=== PATIENT | female | born 1990 | race Caucasian/White ===

== ENCOUNTER 2023-07-30 12:27 | Outpatient (OUT) | payer OTHER, SELFPAY ==
--- NOTE | 2023-07-30 12:28 | US_ITS ---
[address] [address] Patient Name: PHILLIP HERNANDEZ MRN: [id number] date: 1990 Sex: F Assigned Patient Location: Current Patient Location: US Accession/Order Number: [id number] Exam Date: 07/30/2023 12:30 Report Date: 07/30/2023 22:30 At the request of: LE DELVALLE Procedure: US OB transvaginal EXAMINATION: US OB transvaginal HISTORY: Positive test COMPARISON: No relevant comparison available. FINDINGS: GESTATIONAL SAC: Present. YOLK SAC: Present. POLE: Present. CARDIAC: Absent. UTERUS: Normal size and appearance. OVARIES: Right: Corpus lutein cyst. Left: Normal. CERVIX: 4.1 cm in length and closed. CUL-DE-SAC: Normal. OTHER: None. AGE BY LMP: 10 weeks 3 days EDIE BY LMP: 02/22/2024 AGE BY US CRL: 6 weeks 6 days EDIE BY US CRL: 03/18/2024 US/US OB transvaginal IMPRESSION: 1. Early intrauterine versus demise. Follow-up recommended. Electronically authenticated by: BRENDA KEATING Date: 07/30/2023 22:30
== END 2023-07-30 12:28 | disposition home or self-care (01) ==
LOC: US 12:27
PROVIDERS: Visit Provider Obstetrics & Gynecology
DX: N92.6 Irregular menstruation, unspecified (principal)
CPT/HCPCS: 76817

== ENCOUNTER 2023-08-06 09:30 | Outpatient (OUT) | payer OTHER, SELFPAY ==
--- NOTE | 2023-08-06 09:31 | US_ITS ---
[address] [address] Patient Name: PHILLIP HERNANDEZ MRN: [id number] date: 1990 Sex: F Assigned Patient Location: US Current Patient Location: US Accession/Order Number: [id number] Exam Date: 08/06/2023 09:32 Report Date: 08/06/2023 16:44 At the request of: LE DELVALLE Procedure: US OB transvaginal EXAMINATION: US OB transvaginal HISTORY: VIABILITY COMPARISON: 07/30/2023 FINDINGS: No intrauterine or ectopic observed is observed The uterus is normal, anteverted, anteflexed. The endometrium measures 1.3 cm, mildly heterogeneous. No significant vascularity to suggest retained products of conception The right ovary is normal measuring 3.5 x 1.9 x 1.8 cm The left ovary is not visualized Cervix: Closed, 3.4 cm US/US OB transvaginal IMPRESSION: No intrauterine or ectopic observed Electronically authenticated by: NAVA YEUNG Date: 08/06/2023 16:44
== END 2023-08-06 09:31 | disposition home or self-care (01) ==
LOC: US 09:30
PROVIDERS: Visit Provider Obstetrics & Gynecology
DX: O36.80X0 Pregnancy with inconclusive fetal viability, not applicable or unspecified (principal)
CPT/HCPCS: 76817

== ENCOUNTER 2023-08-13 08:27 | Outpatient (RCR) | payer OTHER, SELFPAY ==
[2023-08-13 09:23] LABS: HCG Quantitative 136 mIU/mL
[2023-08-19 09:06] LABS: HCG Quantitative 24 mIU/mL
[2023-08-27 08:47] LABS: HCG Quantitative 4 mIU/mL
== END 2023-08-31 08:31 | disposition home or self-care (01) ==
LOC: LAB 08:27
PROVIDERS: Visit Provider Obstetrics & Gynecology
DX: Z51.89 Encounter for other specified aftercare (principal); O03.9 Complete or unspecified spontaneous abortion without complication
CPT/HCPCS: 36415; 84702

== ENCOUNTER 2023-09-07 20:18 | Outpatient (REF) | payer OTHER, SELFPAY ==
[2023-09-11 12:11] LABS: Age Gdln ACOG Testing Note (.); HPV Aptima Negative (Negative); IGP, Aptima HPV, rfx 16/18,45 Note (.)
== END 2023-09-07 20:19 | disposition home or self-care (01) ==
LOC: LAB 20:18
PROVIDERS: Visit Provider Obstetrics & Gynecology
DX: Z12.4 Encounter for screening for malignant neoplasm of cervix (principal)
CPT/HCPCS: 87624; G0145

== ENCOUNTER 2024-09-13 19:18 | Outpatient (REF) | payer OTHER, SELFPAY ==
[2024-09-20 11:09] LABS: Age Gdln ACOG Testing Note (.); HPV Aptima Negative (Negative); IGP, Aptima HPV, rfx 16/18,45 Note (.)
== END 2024-09-13 19:19 | disposition home or self-care (01) ==
LOC: LAB 19:18
PROVIDERS: Visit Provider Obstetrics & Gynecology
DX: Z01.419 Encounter for gynecological examination (general) (routine) without abnormal findings (principal)
CPT/HCPCS: 88175

== ENCOUNTER 2024-12-10 08:15 | Outpatient (RCR) | payer OTHER, SELFPAY ==
--- OUTSIDE RECORDS SUMMARY | 2024-12-10 08:20 | XMS_ITS | CCD ---
Author Organization [facility] CliniSyal Care Team Providers Care 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 Name Role Phone Subha Dillon Unavailable Elsi Mayer Unavailable MD Liz Conteh Primary Care Provider DO Delano Francis Attending Provider SITA, DR LUJAN Consulting Unavailable SITA, DR LUJAN Admitting Unavailable REQUEST, DR RAIN LISTED Primary Care Unavaila jt BUCKNER, DR LUJAN Attending Unavailable MELVIN, DR SEARS Attending Unavailable MELVIN, DR SEARS Consulting Unavailable MELVIN, DR SEARS Admitting Unavailable REQUEST, DR RAIN LISTED Primary Care Unavaila Kiya Gonsalves Unavailable MD Derick Timmons Attending Provider SHANNON Schaffer Attending Provider Robles Charles Unavailable MD Liz Conteh Primary Care Provider DO Delano Francis Attending Provider [phone] QUANG Haji Attending Provider DO Robles Charles Primary Care Provider Robles Charles MD Primary Care Provider QUANG Haji Attending Provider DO Robles Charles Primary Care Provider AUREA, DEISY Attending Unavailable AUREA, DEISY Attending Unavailable AUREA, DEISY Attending Unavailable AUREA, DEISY Attending Unavailable AUREA, DEISY Attending Unavailable AUREA, DEISY Attending Unavailable LE BUCKNER Attending Unavailable Deisy Pratt Unavailable DO Robles Charles Primary Care Provider [phone] Kuns - DO Reji MEZAan P [facility]ending Provider [facility] Un[facility] Robles Charles Primary [facility] [place] Unavailable Deisy Haji Admitting Unavailable Deisy Haji Attending Unavailable Robles Charles Primary Care Unavailable Robles Charles DO Primary Care Provider [facility] CRESPO Attending Provider Allergies Allergy Classification Reported Allergen(s) Allergy Type Date of Onset Reaction(s) Facility (5 sources) Penicillin V Drug Allergy rash [facility] [employer] Other (1 source) Amoxicillin Drug Allergy [address] [facility] Repository (1 source) Penicillins Drug allergy (disorder) [facility] Repository (5 sources) Penicillin Drug Allergy 7 Cups of Tea [facility] [employer] Other (1 source) Substance with penicillin structure and antibacterial mechanism of action (substance) Drug allergy 3 PENICILLINS [facility] [employer] Other (5 sources) Amoxicillin Drug Allergy 3 [facility] Healthcare (5 sources) Penicillin G Drug Allergy 3 Unknown [facility] Healthcare (1 source) Penicillins Drug allergy (disorder) 4 [facility] Repository Medications Current Medications Medication Drug Class(es) Dates Sig (Normalized) Sig (Original) doxycycline hyclate 100 mg oral capsule (6 sources) Tetracycline-clas s Drug Start: 01-06-2024 End: 01-13-2024 doxycycline (Vibramycin) 100 MG capsule Indications: 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 Take 1 capsule (100 mg) by mouth in the morning and 1 capsule (100 mg) before bedtime. Do all this for 7 days. Take with at least 8 ounces (large glass) of water, do not lie down for 30 minutes after. 14 capsule 0 01/06/2024 01/13/2024 Active Start: 12-24-2022 take 1 tablet by brandon th twice daily Doxycycline Hyclate 100 MG 1 tablet Orally Twice daily for 7 days Nov, Not-Taking fluticasone (9 sources) Corticosteroid Start: 01-22-2023 take 1-2 spray(s) nasal route once daily at bedtime FLONASE 50 mcg 1-2 sprays each NOSTRIL nasal QHS for 30 days Dec, Active take 1 spray(s) nasal route once daily fluticasone (Flonase) 50 MCG/ACT nasal spray Administer 1 spray into each nostril Daily Shake gently. Before first use, prime pump. After use, clean tip and replace cap. Active fluticasone (Vinnie nase Allergy Relief) 50 MCG/ACT nasal spray Flonase 0 Active moxifloxacin 400 mg oral tablet (1 source) Quinolone Antimicrobial Start: 01-06-2024 End: 01-13-2024 take 1 tablet by mouth in the morning moxifloxacin (Avelox) 400 MG tablet Indications: 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 Take 1 tablet (400 mg) by mouth in the morning for 7 days. start medication AFTER completing course of Doxycycline & Azithromycin.. 7 tablet 0 01/06/2024 01/13/2024 Active omeprazole 40 mg delayed release oral capsule (13 sources) Proton Pump Inhibitor Start: 08-16-2024 take 1 capsule by mouth once daily at breakfast Omeprazole 40 mg capsule,delayed release(DR/EC) Active 0 .ROUTE .COMPLEX August 16, 2024 4:42pm TAKE 1 CAPSULE BY MOUTH ONCE DAILY on an empty stomach 30 MINUTES prior TO breakfast Start: 02-22-2024 End: 08-16-2024 Omeprazole 40 mg capsule,del ayed release(DR/EC) Discontinued 40 MG PO Daily February 21, 2024 11:00pm August 16, 2024 4:42pm Take on an empty stomach, 30 minutes prior to bkfst End: 01-06-2024 Omeprazole Magnesium (PriLOS EC) 2.5 MG pack PriLOSEC 0 01/06/2024 Discontinued Pre- (10 sources) Pre-Mack Not-Ta flakita Pre-Mack Active MV-Min-Fe Fum-FA-DH A ( 1 PO) (3 sources) MV-Min- Fe Fum-FA-DHA ( 1 PO) Take 1 tablet by mouth Daily Active Vit-Fe Fumarate-FA ( Vitamin) 27-0.8 MG tablet (1 source) Vit-Fe Fumarate-FA ( Vitamin) 27-0.8 MG tablet Vitamin 0 Active Completed/Discontinued Medications Medication Drug Class(es) Dates Sig (Normalized) Sig (Original) azithromycin 250 mg oral tablet (13 sources) Macrolide Antimicrobial Start: 05-03-2024 End: 10-18-2024 Azithromycin 250 mg tablet Discontinued 250 MG PO daily 6 May 02, 2024 11:00pm October 18, 2024 11:19am take 2 today and then 1 for the next 4 days Start: 01-06-2024 take 1 tablet by brandon th once daily azithromycin (Zithromax) 500 MG tablet Indications: 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 Day 1: Take 2 tablets PO onetime dose; Day 2,3,4: Take 1 tablet daily 5 tablet 0 01/06/2024 Active Start: 09-26-2022 take 1 tablet by brandon th every twenty-four hours Zithromax 500 MG 1 tablet Orally Once a day for 5 days Aug, Not-Taking levoFLOXacin 500 mg oral tablet (5 sources) Quinolone Antimicrobial take 1 tablet by mouth every twenty-four hours levoFLOXacin 500 MG 1 tablet Orally Once a day for 10 day(s) Not-Taking methylPREDNISolone 4 mg oral tablet (4 sources) Corticosteroid Start : 05-03 End: 10-18 take 1 tablet by mouth once Methylprednisolone (Medrol (Santo)) 4 mg tablets,dose pack Discontinued 0 PO per package directions 21 May 02, 2024 11:00pm October 18, 2024 11:19am PO PER PKG DIR phentermine hydrochloride 37.5 mg oral tablet (11 sources) Sympathomimetic Amine Anorectic Start : 10-14 End: 09-13 take 1 tablet by mouth before mealtime phentermine (Adipex-P) 37.5 MG tablet Indications: Encounter for weight management Take 1 tablet (37.5 mg) by mouth in the morning. Take before meals. 30 tablet 02/03/2024 09/13/2024 Discontinued take 0.5 tablet by m outh once daily before breakfast Adipex-P 37.5 MG 1/2 tablet before breakfast Orally Once a day Active predniSONE 20 mg oral tablet (10 sources) Start: 01-22-2023 predniSONE 20 MG 2 tabs x 4 days then 1 tab x 4 days Orally daily w/ food for 8 days Dec, Not-Taking Start: 12-24-2022 take 1 tablet by brandon th twice daily predniSONE 20 MG 1 tablet Orally Twice daily for 4 days Nov, Not-Taking Problems Active Problems Problem Classification Problem Date Documented Date Episodic/Chronic Acute and chronic tonsillitis (4 sources) Acute tonsillitis, unspecified; Translations: [Tonsillitis] Episodic Administrative/socia l admission (1 source) Patient encounter status; Translations: [Persons encountering health services in other specified circumstances] 01-01-2024 Episodic Anxiety disorders (6 sources) Generalized anxiety disorder; Translations: [Generalized anxiety disorder] Chronic Bacterial infection; unspecified site (1 source) Mycoplasma infection; Translations: [Mycoplasma infection, unspecified site] 01-06-2024 Episodic Disorders of lipid metabolism (8 sources) Hyperlipidemia, group A; Translations: [Pure hypercholesterolemia, unspecified] Chronic Esophageal disorders (2 sources) Gastroesophageal reflux disease without esophagitis; Translations: [Gastro-esophageal reflux disease without esophagitis] Chronic Immunizations and screening for infectious disease (5 sources) Encounter for immunization; Translations: [Encounter for screening for other viral diseases] Onset: 08-23-2021 Resolved: 01-01-2022 Episodic Malaise and fatigue (9 sources) Other fatigue; Translations: [Fatigue] Onset: 06-06-2022 Episodic Other endocrine disorders (1 source) Disorder of endocrine system; Translations: [Endocrine disorder, unspecified] 01-06-2024 Episodic Other nutritional; endocrine; and metabolic disorders (5 sources) Overweight; Translations: [Overweight] Episodic Other nutritional; endocrine; and metabolic disorders (1 source) Overweight Episodic Other screening for suspected conditions (not mental disorders or infectious disease) (4 sources) Encounter for screening for malignant neoplasm of cervix; Translations: [ENC SCREENING MALIG NEOPLASM CERV] Onset: 08-25-2022 Episodic Other upper respiratory disease (5 sources) Vasomotor rhinitis; Translations: [Vasomotor rhinitis] Chronic Other upper respiratory disease (1 source) Vasomotor rhinitis Chronic Other upper respiratory disease (5 sources) Hypertrophy of nasal turbinates; Translations: [Hypertrophy of nasal turbinates] Episodic Other upper respiratory disease (1 source) Hypertrophy of nasal turbinates Episodic Other upper respiratory infections (3 sources) Acute pharyngitis, unspecified; Translations: [Acute maxillary sinusitis, unspecified] Episodic Unclassified (1 source) Endocrine disorder, unspecified; Translations: [Endocrine disorder, unspecified] Onset: 01-07-2024 Past or Other Problems Problem Classification Problem Date Documented Da te Episodic/Chronic Unclassified (1 source) Contact with and (suspected) exposure to covid-19 Z20.822 Viral infection (1 source) COVID-19 Onset: 12-27-2021 Resolved: 12-27-2021 Results Test Name Value Interpretation Reference Range Facility Automated basophil %Ordered By: Delano Francis on 09-22-2024 Basophils/100 WBC (Bld) 0.6 % Normal . [facility] Comment on above: Performed By: #### D HEAS, LC T4, [id number], SEROTON, TEST F + T, T3R, THYGLOB AB, ESTRADIOL, TPO, SHBG, ESTRONE, INSULIN, PROG #### [facility] , #### T4F, TRISTEN, TSH3, A1C WTH eA, FILIBERTO, GLU, T3F #### [facility] [address] [place] [address] Automated basophil countOrde red By: Delano Francis on 09-22-2024 Basophils (Bld) [#/Vol] 0.0 10*3/uL Normal 0.0-0.2 [facility] Comment on above: Result Comment: PERF ORMED BY: [place] [address] PATHOLOGIST RABBIT BREEDER JOSE GOEL M.D. Performed By: #### D HEAS, LC T4, [id number], SEROTON, TEST F + T, T3R, THYGLOB AB, ESTRADIOL, TPO, SHBG, ESTRONE, INSULIN, PROG #### [facility] , #### T4F, TRISTEN, TSH3, A1C WTH eA, FILIBERTO, GLU, T3F #### [facility] [address] [place] [address] Automated blood monocyte cou ntOrdered By: Delano Francis on 09-22-2024 Monocytes (Bld) [#/Vol] 0.4 10*3/uL Normal 0.0-0.8 [facility] Comment on above: Performed By: #### D HEAS, LC T4, [id number], SEROTON, TEST F + T, T3R, THYGLOB AB, ESTRADIOL, TPO, SHBG, ESTRONE, INSULIN, PROG #### [facility] , #### T4F, TRISTEN, TSH3, A1C WTH eA, FILIBERTO, GLU, T3F #### [facility] [address] Automated eosinophil %Ordere d By: Delano Francis on 09-22-2024 Eosinophils/100 WBC (Bld) 1.7 % Normal . [facility] Comment on above: Performed By: #### D HEAS, LC T4, [id number], SEROTON, TEST F + T, T3R, THYGLOB AB, ESTRADIOL, TPO, SHBG, ESTRONE, INSULIN, PROG #### [facility] , #### T4F, TRISTEN, TSH3, A1C WTH eA, FILIBERTO, GLU, T3F #### [address] Automated eosinophil countOr dered By: Delano Francis on 09-22-2024 Eosinophils (Bld) [#/Vol] 0.1 10*3/uL Normal 0.0-0.45 [facility] Comment on above: Performed By: #### D HEAS, LC T4, [id number], SEROTON, TEST F + T, T3R, THYGLOB AB, ESTRADIOL, TPO, SHBG, ESTRONE, INSULIN, PROG #### [facility] , #### T4F, TRISTEN, TSH3, A1C WTH eA, FILIBERTO, GLU, T3F #### [address] Automated monocyte %Ordered By: Delano Francis on 09-22-2024 Monocytes/100 WBC (Bld) 8.7 % Normal . [facility] Comment on above: Performed By: #### D HEAS, LC T4, [id number], SEROTON, TEST F + T, T3R, THYGLOB AB, ESTRADIOL, TPO, SHBG, ESTRONE, INSULIN, PROG #### [facility] , #### T4F, TRISTEN, TSH3, A1C WTH eA, FILIBERTO, GLU, T3F #### [facility] [address] [place] [address] Automated neutrophil %Ordere d By: Delano Francis on 09-22-2024 Neutrophils/100 WBC (Bld) 63.7 % Normal . [facility] Comment on above: Performed By: #### D HEAS, LC T4, [id number], SEROTON, TEST F + T, T3R, THYGLOB AB, ESTRADIOL, TPO, SHBG, ESTRONE, INSULIN, PROG #### [facility] , #### T4F, TRISTEN, TSH3, A1C WTH eA, FILIBERTO, GLU, T3F #### [address] Basophils Auto (Bld) [#/Vol] Ordered By: Delano Francis on 09-22-2024 Basophils (Bld) [#/Vol] Automated basophil count 0.0-0.2 [facility] Basophils/100 WBC Auto (Bld) Ordered By: Delano Francis on 09-22-2024 Basophils/100 WBC (Bld) Automated basophil % . [facility] Calcium [Mass/volume] in Ser um or PlasmaOrdered By: Delano Francis on 09-22-2024 Calcium [Mass/Vol] 9.4 mg/dL Normal 8.6-10.3 [facility] Comment on above: Performed By: #### D HEAS, LC T4, [id number], SEROTON, TEST F + T, T3R, THYGLOB AB, ESTRADIOL, TPO, SHBG, ESTRONE, INSULIN, PROG #### [facility] , #### T4F, TRISTEN, TSH3, A1C WTH eA, FILIBERTO, GLU, T3F #### [address] Calcium [Mass/Vol] Calcium [Mass/volume ] in Serum or Plasma 8.6-10.3 [facility] Carbon dioxide, total [Moles /volume] in Serum or PlasmaOrdered By: Delano Francis on 09-22-2024 CO2 [Moles/Vol] 29.2 mmol/L Normal 21.0-31.0 [facility] Comment on above: Performed By: #### D DANIELLEAS, LC T4, [id number], SEROTON, TEST F + T, T3R, THYGLOB AB, ESTRADIOL, TPO, SHBG, ESTRONE, INSULIN, PROG #### [facility] , #### T4F, TRISTEN, TSH3, A1C WTH eA, FILIBERTO, GLU, T3F #### [facility] [address] [place] [id number] [place] CO2 [Moles/Vol] Carbon dioxide, tota l [Moles/volume] in Serum or Plasma 21.0-31.0 [facility] Chloride [Moles/volume] in S stevo or PlasmaOrdered By: Delano Francis on 09-22-2024 Chloride [Moles/Vol] 105 mmol/L Normal [address] [place] [address] Comment on above: Performed By: #### D VENITA, LC T4, [id number], SEROTON, TEST F + T, T3R, THYGLOB AB, ESTRADIOL, TPO, SHBG, ESTRONE, INSULIN, PROG #### [facility] , #### T4F, TRISTEN, TSH3, A1C WTH eA, FILIBERTO, GLU, T3F #### [facility] [address] [place] [address] [place] Chloride [Moles/Vol] Chloride [Moles/vol ume] in Serum or Plasma 107 [facility] Cholesterol [Mass/volume] in Serum or PlasmaOrdered By: Delano Francis on 09-22-2024 Cholesterol [Mass/Vol] 217 mg/dL High 140-200 [facility] Comment on above: Chol less than 200 m g/dl low riskChol 201-239 mg/dl borderline riskChol 240 mg/dl and greater high risk Result Comment: Chol less than 200 mg/dl low risk Chol 201-239 mg/dl borderline risk Chol 240 mg/dl and greater high risk Performed By: #### D HEAS, LC T4, [id number], SEROTON, TEST F + T, T3R, THYGLOB AB, ESTRADIOL, TPO, SHBG, ESTRONE, INSULIN, PROG #### [facility] , #### T4F, TRISTEN, TSH3, A1C WTH eA, FILIBERTO, GLU, T3F #### [facility] [address] Cholesterol [Mass/Vol] Cholesterol [Mass/volume] in Serum or Plasma High 140-200 [facility] Comment on above: Chol less than 200 m g/dl low riskChol 201-239 mg/dl borderline riskChol 240 mg/dl and greater high risk Cholesterol in HDL [Mass/vol ume] in Serum or PlasmaOrdered By: Delano Francis on 09-22-2024 Cholesterol in HDL [Mass/Vol] Serum or plasma high density lipoprotein (HDL) cholesterol measurement 23- [facility] Comment on above: HDL CHOL ATP-III CLA SSIFICATION Cardiovascular RiskHDL > or equal to 60 mg/dL LOWHDL < 40 mg/dL HIGH Cholesterol in LDL Calc [Mas s/Vol]Ordered By: Delano Francis on 09-22-2024 Cholesterol in LDL [Mass/Vol] 148 mg/dL High 0-100 [facility] Comment on above: LDL ATP III CLASSIFI CATIONLDL less than 100 mg/dL OptimalLDL 100-129 mg/dL Near or above optimalLDL 130-159 mg/dL Borderline highLDL 160-189 mg/dL HighLDL greater than 189 mg/dL Very high Cholesterol in LDL [Mass/Vol] Cholesterol in LDL [Mass/volume] in Serum or Plasma by calculation High 0-100 [facility] Comment on above: LDL ATP III CLASSIFI CATIONLDL less than 100 mg/dL OptimalLDL 100-129 mg/dL Near or above optimalLDL 130-159 mg/dL Borderline highLDL 160-189 mg/dL HighLDL greater than 189 mg/dL Very high Cholesterol in VLDL Calc [Ma ss/Vol]Ordered By: Delano Francis on 09-22-2024 Cholesterol in VLDL [Mass/Vol] 10 mg/dL [facility] Cholesterol in VLDL [Mass/Vol] Cholesterol in VLDL [Mass/volume] in Serum or Plasma by calculation [facility] Creatinine [Mass/volume] in Serum or PlasmaOrdered By: Delano Francis on 09-22-2024 Creatinine [Mass/Vol] 0.73 mg/dL Normal 0.60-1.20 [facility] Comment on above: Performed By: #### D HEAS, LC T4, [id number], SEROTON, TEST F + T, T3R, THYGLOB AB, ESTRADIOL, TPO, SHBG, ESTRONE, INSULIN, PROG #### [facility] , #### T4F, TRISTEN, TSH3, A1C WTH eA, FILIBERTO, GLU, T3F #### [address] Creatinine [Mass/Vol] Creatinine [Mass/v olume] in Serum or Plasma 0.60-1.20 [facility] Employee Basic Metabolic Olvera bellevue 09-22-2024 GFR/1.73 sq M.predicted MDRD (S/P/Bld) [Vol rate/Area] mL/min/{1.73_m2} Normal [facility] Comment on above: Performed By: #### D DANIELLEAS, LC T4, [id number], SEROTON, TEST F + T, T3R, THYGLOB AB, ESTRADIOL, TPO, SHBG, ESTRONE, INSULIN, PROG #### [facility] , #### T4F, TRISTEN, TSH3, A1C WTH eA, FILIBERTO, GLU, T3F #### [address] Employee Complete Blood Coun ton 09-22-2024 Mean Corpuscular HGB Conc 34.2 g/dL Normal 32.0-35.0 [facility] Comment on above: Performed By: #### D HEAS, LC T4, [id number], SEROTON, TEST F + T, T3R, THYGLOB AB, ESTRADIOL, TPO, SHBG, ESTRONE, INSULIN, PROG #### [facility] , #### T4F, TRISTEN, TSH3, A1C WTH eA, FILIBERTO, GLU, T3F #### [address] NRBC% 0.0 /100{WBC} Normal 0-0.5 [facility] Comment on above: Performed By: #### D VENITA, JOSSE T4, [id number], SEROTON, TEST F + T, T3R, THYGLOB AB, ESTRADIOL, TPO, SHBG, ESTRONE, INSULIN, PROG #### [facility] , #### T4F, TRISTEN, TSH3, A1C WTH eA, FILIBERTO, GLU, T3F #### [address] Employee Lipid Profileon LDL Cholesterol,Calculated 148 mg/dL High 0-100 [facility] Comment on above: Result Comment: LDL ATP III CLASSIFICATION LDL less than 100 mg/dL Optimal LDL 100-129 mg/dL Near or above optimal LDL 130-159 mg/dL Borderline high LDL 160-189 mg/dL High LDL greater than 189 mg/dL Very high Performed By: #### D VENITA, JOSSE T4, [id number], SEROTON, TEST F + T, T3R, THYGLOB AB, ESTRADIOL, TPO, SHBG, ESTRONE, INSULIN, PROG #### [facility] , #### T4F, TRISTEN, TSH3, A1C WTH eA, FILIBERTO, GLU, T3F #### [address] Triglyceride w/Reflex 52 mg/dL Normal 0-149 [facility] Comment on above: Result Comment: TRIG ATP III CLASSIFICATION TRIG less than 150 mg/dL Normal TRIG 150-199 mg/dL Borderline high TRIG 200-500 mg/dL High TRIG greater than 500 mg/dL Very high Standard traceable to the Center for Disease Conrtrol and Prevention (CDC) test method. Performed By: #### D JOSSE NATHAN T4, [id number], SEROTON, TEST F + T, T3R, THYGLOB AB, ESTRADIOL, TPO, SHBG, ESTRONE, INSULIN, PROG #### [facility] , #### T4F, TRISTEN, TSH3, A1C WTH eA, FILIBERTO, GLU, T3F #### [address] VLDL CHOLESTEROL 10 mg/dL Normal [facility] Comment on above: Performed By: #### D DANIELLEAS, LC T4, [id number], SEROTON, TEST F + T, T3R, THYGLOB AB, ESTRADIOL, TPO, SHBG, ESTRONE, INSULIN, PROG #### [facility] , #### T4F, TRISTEN, TSH3, A1C WTH eA, FILIBERTO, GLU, T3F #### [address] Employee Thyroid Stim Hormon lonnie 09-22-2024 Employee Thyroid Stim Hormone 2.30 u[iU]/mL Normal 0.45-5.33 [facility] Comment on above: Result Comment: PERF ORMED BY: [place] [address] PATHOLOGIST RABBIT BREEDER JOSE GOEL M.D. Performed By: #### D HEAS, LC T4, [id number], SEROTON, TEST F + T, T3R, THYGLOB AB, ESTRADIOL, TPO, SHBG, ESTRONE, INSULIN, PROG #### [facility] , #### T4F, TRISTEN, TSH3, A1C WTH eA, FILIBERTO, GLU, T3F #### [address] Eosinophils Auto (Bld) [#/Vo l]Ordered By: Delano Francis on 09-22-2024 Eosinophils (Bld) [#/Vol] Automated eosinophil count 0.0-0.45 [facility] Eosinophils/100 WBC Auto (Bl d)Ordered By: Delano Francis on 09-22-2024 Eosinophils/100 WBC (Bld) Automated eosinophil % . [facility] Erythrocyte distribution wid th Auto (RBC) [Ratio]Ordered By: Delano Francis on 09-22-2024 Erythrocyte distribution width (RBC) [Ratio] Erythrocyte distribution width [Ratio] by Automated count 11.9-15.3 [facility] Erythrocyte distribution wid th [Ratio] by Automated countOrdered By: Delano Francis on 09-22-2024 Erythrocyte distribution width (RBC) [Ratio] 13.2 % Normal 11.9-15.3 [facility] Comment on above: Performed By: #### D DANIELLEAS, LC T4, [id number], SEROTON, TEST F + T, T3R, THYGLOB AB, ESTRADIOL, TPO, SHBG, ESTRONE, INSULIN, PROG #### [facility] , #### T4F, TRISTEN, TSH3, A1C WTH eA, FILIBERTO, GLU, T3F #### [facility] [address] [place] [address] [place] Erythrocytes [#/volume] in B lood by Automated countOrdered By: Delano Francis on 09-22-2024 RBC (Bld) [#/Vol] 3.91 10*6/uL Normal 3.60-5.00 [facility] Comment on above: Performed By: #### D DANIELLEAS, LC T4, [id number], SEROTON, TEST F + T, T3R, THYGLOB AB, ESTRADIOL, TPO, SHBG, ESTRONE, INSULIN, PROG #### [facility] , #### T4F, TRISTEN, TSH3, A1C WTH eA, FILIBERTO, GLU, T3F #### [facility] [address] [place] [address] [place] Glucose [Mass/volume] in Ser um or PlasmaOrdered By: Delano Francis on 09-22-2024 Glucose [Mass/Vol] 83 mg/dL Normal 70-100 [facility] Comment on above: Performed By: #### D HEAS, LC T4, [id number], SEROTON, TEST F + T, T3R, THYGLOB AB, ESTRADIOL, TPO, SHBG, ESTRONE, INSULIN, PROG #### [facility] , #### T4F, TRISTEN, TSH3, A1C WTH eA, FILIBERTO, GLU, T3F #### [facility] [address] [place] [id number] [place] Glucose [Mass/Vol] Glucose [Mass/volume ] in Serum or Plasma 70-100 [facility] Hematocrit Auto (Bld) [Volum e fraction]Ordered By: Delano Francis on 09-22-2024 Hematocrit (Bld) [Volume fraction] Hematocrit [Volume Fraction] of Blood by Automated count 34.0-46.4 [facility] Hematocrit [Volume Fraction] of Blood by Automated countOrdered By: Delano Francis on 09-22-2024 Hematocrit (Bld) [Volume fraction] 35.9 % Normal 34.0-46.4 [facility] Comment on above: Performed By: #### D VEINTA, LC T4, [id number], SEROTON, TEST F + T, T3R, THYGLOB AB, ESTRADIOL, TPO, SHBG, ESTRONE, INSULIN, PROG #### [facility] , #### T4F, TRISTEN, TSH3, A1C WTH eA, FILIBERTO, GLU, T3F #### [facility] [address] [place] [address] [place] Hemoglobin [Mass/volume] in BloodOrdered By: Delano Francis on 09-22-2024 Hemoglobin (Bld) [Mass/Vol] 12.3 g/dL Normal 11.8-15.4 [facility] [facility] Comment on above: Performed By: #### Adria NATHAN, LC T4, [id number], SEROTON, TEST F + T, T3R, THYGLOB AB, ESTRADIOL, TPO, SHBG, ESTRONE, INSULIN, PROG #### [facility] , #### T4F, TRISTEN, TSH3, A1C WTH eA, FILIBERTO, GLU, T3F #### [facility] [address] [place] [address] [place] Hemoglobin (Bld) [Mass/Vol] Hemoglobin [Mass/volume] in Blood 11.8-15.4 [facility] Leukocytes [#/volume] correc calvin for nucleated erythrocytes in Blood by Automated counOrdered By: Delano Francis on 09-22-2024 WBC corrected for nucl RBC Auto (Bld) [#/Vol] 5.1 10*3/uL 3.8-11.6 [facility] WBC corrected for nucl RBC Auto (Bld) [#/Vol] Leukocytes [#/volume] corrected for nucleated erythrocytes in Blood by Automated coun 3.8-11.6 [facility] Leukocytes [#/volume] in Blo od by Automated countOrdered By: Delano Francis on 09-22-2024 WBC (Bld) [#/Vol] 5.1 10*3/uL Normal 3.8-11.6 [facility] Comment on above: Performed By: #### D HEAS, LC T4, [id number], SEROTON, TEST F + T, T3R, THYGLOB AB, ESTRADIOL, TPO, SHBG, ESTRONE, INSULIN, PROG #### [facility] , #### T4F, TRISTEN, TSH3, A1C WTH eA, FILIBERTO, GLU, T3F #### [facility] [address] [place] [address] [place] Lymphocytes Auto (Bld) [#/Vo l]Ordered By: Delano Francis on 09-22-2024 Lymphocytes (Bld) [#/Vol] Lymphocytes [#/volume] in Blood by Automated count 1.00-4.8 [facility] Lymphocytes [#/volume] in Bl ood by Automated countOrdered By: Delano Francis on 09-22-2024 Lymphocytes (Bld) [#/Vol] 1.3 10*3/uL Normal 1.00-4.8 [facility] Comment on above: Performed By: #### D HEAS, LC T4, [id number], SEROTON, TEST F + T, T3R, THYGLOB AB, ESTRADIOL, TPO, SHBG, ESTRONE, INSULIN, PROG #### [facility] , #### T4F, TRISTEN, TSH3, A1C WTH eA, FILIBERTO, GLU, T3F #### [facility] [address] [place] [address] [place] Lymphocytes/100 WBC Auto (Bl d)Ordered By: Delano Francis on 09-22-2024 Lymphocytes/100 WBC (Bld) Lymphocytes/100 leukocytes in Blood by Automated count . [facility] Lymphocytes/100 leukocytes i n Blood by Automated countOrdered By: Delano Francis on 09-22-2024 Lymphocytes/100 WBC (Bld) 25.3 % Normal . [facility] Comment on above: Performed By: #### D HEAS, LC T4, [id number], SEROTON, TEST F + T, T3R, THYGLOB AB, ESTRADIOL, TPO, SHBG, ESTRONE, INSULIN, PROG #### [facility] , #### T4F, TRISTEN, TSH3, A1C WTH eA, FILIBERTO, GLU, T3F #### [address] MCH Auto (RBC) [Entitic mass ]Ordered By: Delano Francis on 09-22-2024 MCH (RBC) [Entitic mass] MCH [Entitic mass] by Automated count 24.7-34.3 [facility] MCH [Entitic mass] by Automa calvin countOrdered By: Delano Francis on 09-22-2024 MCH (RBC) [Entitic mass] 31.4 pg Normal 24.7-34.3 [facility] Comment on above: Performed By: #### D HEAS, LC T4, [id number], SEROTON, TEST F + T, T3R, THYGLOB AB, ESTRADIOL, TPO, SHBG, ESTRONE, INSULIN, PROG #### [facility] , #### T4F, TRISTEN, TSH3, A1C WTH eA, FILIBERTO, GLU, T3F #### [address] MCHC Auto (RBC) [Mass/Vol]Or dered By: Delano Francis on 09-22-2024 MCHC (RBC) [Mass/Vol] 34.2 g/dL 32.0-35.0 [facility] MCHC (RBC) [Mass/Vol] MCHC [Mass/volume] by Automated count 32.0-35.0 [facility] MCV Auto (RBC) [Entitic vol] Ordered By: Delano Francis on 09-22-2024 MCV (RBC) [Entitic vol] MCV [Entitic vol ume] by Automated count 80-100 [facility] MCV [Entitic volume] by Auto mated countOrdered By: Delano Francis on 09-22-2024 MCV (RBC) [Entitic vol] 91.7 fL Normal 80-100 [facility] Comment on above: Performed By: #### D HEAS, LC T4, [id number], SEROTON, TEST F + T, T3R, THYGLOB AB, ESTRADIOL, TPO, SHBG, ESTRONE, INSULIN, PROG #### [facility] , #### T4F, TRISTEN, TSH3, A1C WTH eA, FILIBERTO, GLU, T3F #### [facility] [address] [place] [address] [place] Monocytes Auto (Bld) [#/Vol] Ordered By: Delano Francis on 09-22-2024 Monocytes (Bld) [#/Vol] Automated blood monocyte count 0.0-0.8 [facility] Monocytes/100 WBC Auto (Bld) Ordered By: Delano Francis on 09-22-2024 Monocytes/100 WBC (Bld) Automated monocyte % . [facility] Neutrophils Auto (Bld) [#/Vo l]Ordered By: Delano Francis on 09-22-2024 Neutrophils (Bld) [#/Vol] Neutrophils [#/volume] in Blood by Automated count 1.8-7.7 [facility] Neutrophils [#/volume] in Bl ood by Automated countOrdered By: Delano Francis on 09-22-2024 Neutrophils (Bld) [#/Vol] 3.2 10*3/uL Normal 1.8-7.7 [facility] Comment on above: Performed By: #### D HEAS, LC T4, [id number], SEROTON, TEST F + T, T3R, THYGLOB AB, ESTRADIOL, TPO, SHBG, ESTRONE, INSULIN, PROG #### [facility] , #### T4F, TRISTEN, TSH3, A1C WTH eA, FILIBERTO, GLU, T3F #### [facility] [address] [place] [address] [place] Neutrophils/100 WBC Auto (Bl d)Ordered By: Delano Francis on 09-22-2024 Neutrophils/100 WBC (Bld) Automated neutrophil % . [facility] No Panel InformationOrdered By: Delano Francis on 09-22-2024 Estimated GFR (CKD-EPI) > 60.0 mL/Min [facility] Creatinine Clearance (Chem N/A [facility] Nucleated erythrocytes [Pres ence] in Blood by Automated countOrdered By: Delano Francis on 09-22-2024 Nucleated RBC Auto Ql (Bld) 0.0 /100{WBC} 0-0.5 [facility] Nucleated RBC Auto Ql (Bld) Nucleated erythrocytes [Presence] in Blood by Automated count 0-0.5 [facility] Platelet mean volume Auto (B ld) [Entitic vol]Ordered By: Delano Francis on 09-22-2024 Platelet mean volume (Bld) [Entitic vol] Platelet mean volume [Entitic volume] in Blood by Automated count 6.3-10.7 [facility] Platelet mean volume [Entiti c volume] in Blood by Automated countOrdered By: Delano Francis on 09-22-2024 Platelet mean volume (Bld) [Entitic vol] 7.3 fL Normal 6.3-10.7 [facility] Comment on above: Performed By: #### D HEAS, LC T4, [id number], SEROTON, TEST F + T, T3R, THYGLOB AB, ESTRADIOL, TPO, SHBG, ESTRONE, INSULIN, PROG #### [facility] , #### T4F, TRISTEN, TSH3, A1C WTH eA, FILIBERTO, GLU, T3F #### [address] Platelets Auto (Bld) [#/Vol] Ordered By: Delano Francis on 09-22-2024 Platelets (Bld) [#/Vol] Platelets [#/vol ume] in Blood by Automated count 150-450 [facility] Platelets [#/volume] in Bloo d by Automated countOrdered By: Delano Francis on 09-22-2024 Platelets (Bld) [#/Vol] 328 10*3/uL Normal 150-450 [facility] Comment on above: Performed By: #### D HEAS, LC T4, [id number], SEROTON, TEST F + T, T3R, THYGLOB AB, ESTRADIOL, TPO, SHBG, ESTRONE, INSULIN, PROG #### [facility] , #### T4F, TRISTEN, TSH3, A1C WTH eA, FILIBERTO, GLU, T3F #### [facility] [address] [place] [address] [place] Potassium [Moles/volume] in Serum or PlasmaOrdered By: Delano Francis on 09-22-2024 Potassium [Moles/Vol] 4.5 mmol/L Normal 3.5-5.1 [facility] Comment on above: Performed By: #### D HEAS, LC T4, [id number], SEROTON, TEST F + T, T3R, THYGLOB AB, ESTRADIOL, TPO, SHBG, ESTRONE, INSULIN, PROG #### [facility] , #### T4F, TRISTEN, TSH3, A1C WTH eA, FILIBERTO, GLU, T3F #### [facility] [address] [place] [address] [place] Potassium [Moles/Vol] Potassium [Moles/v olume] in Serum or Plasma 3.5-5.1 [facility] RBC Auto (Bld) [#/Vol]Ordere d By: Delano Francis on 09-22-2024 RBC (Bld) [#/Vol] Erythrocytes [#/volu me] in Blood by Automated count 3.60-5.00 [facility] Serum or plasma anion gap de terminationOrdered By: Delano Francis on 09-22-2024 Anion gap [Moles/Vol] 8.3 mmol/L Normal 6.0-15.0 [facility] Comment on above: Performed By: #### D HEAS, LC T4, [id number], SEROTON, TEST F + T, T3R, THYGLOB AB, ESTRADIOL, TPO, SHBG, ESTRONE, INSULIN, PROG #### [facility] , #### T4F, TRISTEN, TSH3, A1C WTH eA, FILIBERTO, GLU, T3F #### [facility] [address] [place] [id number] [place] Anion gap [Moles/Vol] Serum or plasma an ion gap determination 6.0-15.0 [facility] Serum or plasma high density lipoprotein (HDL) cholesterol measurementOrdered By: Delano Francis on 09-22-2024 Cholesterol in HDL [Mass/Vol] 59 mg/dL Normal 23-92 [facility] Comment on above: HDL CHOL ATP-III CLA SSIFICATION Cardiovascular RiskHDL > or equal to 60 mg/dL LOWHDL < 40 mg/dL HIGH Result Comment: HDL CHOL ATP-III CLASSIFICATION Cardiovascular Risk HDL > or equal to 60 mg/dL LOW HDL < 40 mg/dL HIGH Performed By: #### D VENITA, LC T4, [id number], SEROTON, TEST F + T, T3R, THYGLOB AB, ESTRADIOL, TPO, SHBG, ESTRONE, INSULIN, PROG #### [facility] , #### T4F, TRISTEN, TSH3, A1C WTH eA, FILIBERTO, GLU, T3F #### [facility] [address] Serum or plasma total choles terol/high density lipoprotein (HDL) cholesterol mass ratOrdered By: Delano Francis on 09-22-2024 Cholesterol.total/Alivia sterol in HDL [Mass ratio] 3.7 {ratio} Normal <5.0 [facility] Comment on above: Performed By: #### D VENITA, LC T4, [id number], SEROTON, TEST F + T, T3R, THYGLOB AB, ESTRADIOL, TPO, SHBG, ESTRONE, INSULIN, PROG #### [facility] , #### T4F, TRISTEN, TSH3, A1C WTH eA, FILIBERTO, GLU, T3F #### [facility] [address] Cholesterol.total/Alivia sterol in HDL [Mass ratio] Serum or plasma total cholesterol/high density lipoprotein (HDL) cholesterol mass rat <5.0 [facility] Sodium [Moles/volume] in Ser um or PlasmaOrdered By: Delano Francis on 09-22-2024 Sodium [Moles/Vol] 138 mmol/L Normal 136-145 [facility] Comment on above: Performed By: #### D HEAS, LC T4, [id number], SEROTON, TEST F + T, T3R, THYGLOB AB, ESTRADIOL, TPO, SHBG, ESTRONE, INSULIN, PROG #### [facility] , #### T4F, TRISTEN, TSH3, A1C WTH eA, FILIBERTO, GLU, T3F #### [facility] [address] Sodium [Moles/Vol] Sodium [Moles/volume ] in Serum or Plasma 136-145 [facility] Thyrotropin [Units/volume] i n Serum or PlasmaOrdered By: Delano Francis on 09-22-2024 TSH Qn 2.30 m[IU]/L 0.45-5.33 [facility] TSH Qn Thyrotropin [Units/volume] in Serum or Plasma 0.45-5.33 [facility] Triglyceride [Mass/volume] i n Serum or PlasmaOrdered By: Delano Francis on 09-22-2024 Triglyceride [Mass/Vol] 52 mg/dL 0-149 [facility] Comment on above: TRIG ATP III CLASSIF ICATIONTRIG less than 150 mg/dL NormalTRIG 150-199 mg/dL Borderline highTRIG 200-500 mg/dL High TRIG greater than 500 mg/dL Very highStandard traceable to the Center for Disease Conrtrol and Prevention (CDC) test method. Triglyceride [Mass/Vol] Triglyceride [Mass/volume] in Serum or Plasma 0-149 [facility] Comment on above: TRIG ATP III CLASSIF ICATIONTRIG less than 150 mg/dL NormalTRIG 150-199 mg/dL Borderline highTRIG 200-500 mg/dL High TRIG greater than 500 mg/dL Very highStandard traceable to the Center for Disease Conrtrol and Prevention (CDC) test method. Urea nitrogen [Mass/volume] in Serum or PlasmaOrdered By: Delano Francis on 09-22-2024 Urea nitrogen [Mass/Vol] 9 mg/dL Normal 7-25 [facility] Comment on above: Performed By: #### D HESUE, LC T4, [id number], SEROTON, TEST F + T, T3R, THYGLOB AB, ESTRADIOL, TPO, SHBG, ESTRONE, INSULIN, PROG #### [facility] , #### T4F, TRISTEN, TSH3, A1C WTH eA, FILIBERTO, GLU, T3F #### [facility] [address] Urea nitrogen [Mass/Vol] Urea nitrogen [Mass/volume] in Serum or Plasma 06-23 [facility] WBC Auto (Bld) [#/Vol]Ordere d By: Delano Francis on 09-22-2024 WBC (Bld) [#/Vol] Leukocytes [#/volume ] in Blood by Automated count 3.8-11.6 [facility] IGP,APTIMA HPV,AGE GDLNon AGE GDLN ACOG TESTING Note . [facility] Comment on above: TESTS RESULT FLAG UN ITS REF RANGE LAB Clinician Provided Cytology Information Source.............Cervix;Endocervix No. of containers..01 ThinPrep Vial Age Algo ACOG Lara... 30-65 01 FLAG LEGEND: L-Low Normal,H-High Normal,LL-Alert Low,HH-Alert High <-Panic Low,>-Panic High,A-Abnormal,AA-Critical Abnormal Performed at: 01 =G [address] [id number] Ilana Heath MD, HPV APTIMA Negative Negative [facility] Comment on above: This nucleic acid am plification test detects fourteen high- risk HPV types (16,18,31,33,35,39,45,51,52,56,58,59,66,68) without differentiation. Performed at: = - [address], [place] [id number] [employer]: Ilana Heath MD, Phone: [phone] Performed at: - [address] [id number] [employer]: Ilana Heath MD, Phone: [phone] IGP, APTIMA HPV, RFX 16/18,45 Note . [facility] Comment on above: TESTS RESULT FLAG UN ITS REF RANGE LAB DIAGNOSIS: 02 NEGATIVE FOR INTRAEPITHELIAL LESION OR MALIGNANCY. Specimen adequacy: 02 Satisfactory for evaluation. No endocervical component is identified. Performed by: 02 Chema Camargo, Pilot (ASCP) . 02 Note: Note 02 The Pap smear is a screening test designed to aid in the detection of premalignant and malignant conditions of the uterine cervix. It is not a diagnostic procedure and should not be used as the sole means of detecting cervical cancer. Both false-positive and false-negative reports do occur. Test Methodology: Note 02 This liquid based ThinPrep(R) pap test was screened with the use of an image guided system. HPV Genotype Reflex Note 02 Criteria not met, HPV Genotype not performed. FLAG LEGEND: L-Low Normal,H-High Normal,LL-Alert Low,HH-Alert High <-Panic Low,>-Panic High,A-Abnormal,AA-Critical Abnormal Performed at: 02 [facility] [address] [facility] [place] [address] Ilana Heath MD, BRUSH-SPATULA CERVIX ENDOCERVIX [facility] 1,25 Dihydroxy Vit D Calcitr olon 01-07-2024 1,25 Dihydroxy Vit D Calcitrol 56.6 pg/mL Normal 24.8-81.5 [facility] Comment on above: Result Comment: Perf ormed at: - [facility] [place] [address] [place] [id number] [employer]: Quinton Wolf MD, Phone: [phone] Performed By: #### D VENITA, LC T4, [id number], SEROTON, TEST F + T, T3R, THYGLOB AB, ESTRADIOL, TPO, SHBG, ESTRONE, INSULIN, PROG #### [facility] , #### T4F, TRISTEN, TSH3, A1C WTH eA, FILIBERTO, GLU, T3F #### [facility] [address] A1C with Estimated Average G luon 01-07-2024 Glucose [Mass/Vol] 105 mg/dL Normal [facility] Comment on above: Result Comment: PERF ORMED BY: [place] [address] PATHOLOGIST RABBIT BREEDER JOSE GOEL M.D. Performed By: #### D VENITA, LC T4, [id number], SEROTON, TEST F + T, T3R, THYGLOB AB, ESTRADIOL, TPO, SHBG, ESTRONE, INSULIN, PROG #### [facility] , #### T4F, TRISTEN, TSH3, A1C WTH eA, FILIBERTO, GLU, T3F #### [facility] [address] [place] [id number] [place] Antithyroglobulin Abon 01-07 Antithyroglobulin Ab <1.0 Normal 0.0-0.9 [facility] Comment on above: Result Comment: Thyr oglobulin Antibody measured by Mitul Mariah Methodology Performed at: [facility] [address] [id number] [employer] Announcements: Baudilio Leyva PhD, Phone: [phone] Performed By: #### D VENITA, LC T4, [id number], SEROTON, TEST F + T, T3R, THYGLOB AB, ESTRADIOL, TPO, SHBG, ESTRONE, INSULIN, PROG #### [facility] , #### T4F, TRISTEN, TSH3, A1C WTH eA, FILIBERTO, GLU, T3F #### [address] Cortisolon 01-07-2024 Cortisol 6.8 ug/dL Normal [facility] Comment on above: Result Comment: Refe rence range: AM 6 - 24 ug/dl PM <10 ug/dl [facility] academic associate and method: MITUL UNICEL DXI, POLYCLONAL ANTIBODY CORTISOL ASSAY. PERFORMED BY: [place] [address] PATHOLOGIST RABBIT BREEDER JOSE GOEL M.D. Performed By: #### D VENITA, LC T4, [id number], SEROTON, TEST F + T, T3R, THYGLOB AB, ESTRADIOL, TPO, SHBG, ESTRONE, INSULIN, PROG #### [facility] , #### T4F, TRISTEN, TSH3, A1C WTH eA, FILIBERTO, GLU, T3F #### [address] Dehydroepiandrosterone Sulfa teOrdered By: Deisy Haji on 01-07-2024 Dehydroepiandrosterone Sulfate 174.0 ug/dL Normal 84.8-378.0 [facility] Comment on above: Performed By: #### D HESUE, LC T4, [id number], SEROTON, TEST F + T, T3R, THYGLOB AB, ESTRADIOL, TPO, SHBG, ESTRONE, INSULIN, PROG #### [facility] , #### T4F, TRISTEN, TSH3, A1C WTH eA, FILIBERTO, GLU, T3F #### [facility] [address] [place] [address] [facility] Estradiolon 01-07-2024 Estradiol 300.0 pg/mL Normal . [facility] Comment on above: Result Comment: Adul t Female Range Follicular phase 12.5 - 166.0 Ovulation phase 85.8 - 498.0 Luteal phase 43.8 - 211.0 Postmenopausal <6.0 - 54.7 1st trimester 215.0 - >4300.0 Elías ECLIA methodology Performed By: #### D VENITA, LC T4, [id number], SEROTON, TEST F + T, T3R, THYGLOB AB, ESTRADIOL, TPO, SHBG, ESTRONE, INSULIN, PROG #### [facility] , #### T4F, TRISTEN, TSH3, A1C WTH eA, FILIBERTO, GLU, T3F #### [facility] [address] [place] [address] [facility] Estrone, Serumon 01-07-2024 Estrone, Serum 46 pg/mL Normal 27-231 [facility] Comment on above: Result Comment: Rang e Adult (Premenopausal) 27 - 231 Menstrual Cycle (1-10 days) 19 - 149 Menstrual Cycle (11-20 days) 32 - 176 Menstrual Cycle (21-30 days) 37 - 200 Performed at: [facility] [address] [id number] [employer] Announcements: Quinton Wolf MD, Phone: [phone] Performed By: #### D VENITA, LC T4, [id number], SEROTON, TEST F + T, T3R, THYGLOB AB, ESTRADIOL, TPO, SHBG, ESTRONE, INSULIN, PROG #### [facility] , #### T4F, TRISTEN, TSH3, A1C WTH eA, FILIBERTO, GLU, T3F #### [facility] [address] [place] [address] [facility] Ferritin [Mass/volume] in Se rum or PlasmaOrdered By: Deisy Haji on 01-07-2024 Ferritin [Mass/Vol] 44.8 ng/mL Normal 11.0-306.8 [facility] Comment on above: Performed By: #### D HEAS, LC T4, [id number], SEROTON, TEST F + T, T3R, THYGLOB AB, ESTRADIOL, TPO, SHBG, ESTRONE, INSULIN, PROG #### [facility] , #### T4F, TRISTEN, TSH3, A1C WTH eA, FILIBERTO, GLU, T3F #### [facility] [address] Free testosterone measuremen t by LC-MS/MSOrdered By: Deisy Haji on 01-07-2024 Testosterone Free [Mass/Vol] 0.3 pg/mL 0.0-4.2 [facility] Comment on above: Performed at: [address] [id number] Director: Baudilio Leyva PhD, Phone: [phone] at: [facility] [employer] [id number] Director: Quinton Wolf MD, Phone: [phone] Glucose [Mass/volume] in Ser um or PlasmaOrdered By: Deisy Haji on 01-07-2024 Glucose [Mass/Vol] 84 mg/dL Normal 70-100 [facility] Comment on above: ADA recommended refe rence rangeRandom Glucose Reference Range is dependent on time and content of last meal. Glucose of more than 200 mg/dL in a nonstressed, ambulatory subject supports the diagnosis of Diabetes Mellitus. Result Comment: [place] om Glucose Reference Range is dependent on time and content of last meal. Glucose of more than 200 mg/dL in a nonstressed, ambulatory subject supports the diagnosis of Diabetes Mellitus. ADA recommended reference range Performed By: #### D HEAS, LC T4, [id number], SEROTON, TEST F + T, T3R, THYGLOB AB, ESTRADIOL, TPO, SHBG, ESTRONE, INSULIN, PROG #### [facility] , #### T4F, TRISTEN, TSH3, A1C WTH eA, FILIBERTO, GLU, T3F #### [facility] [address] Glucose mean value [Mass/vol ume] in Blood Estimated from glycated hemoglobinOrdered By: Deisy Haji on 01-07-2024 Average glucose Estimated from glycated hemoglobin (Bld) [Mass/Vol] 105 mg/dL [facility] Hemoglobin A1c percentageOrd ered By: Deisy Haji on 01-07-2024 HbA1c (Bld) [Mass fraction] 5.3 % Normal 4.3-5.6 [facility] Comment on above: Increased risk for d iabetes: 5.7 - 6.4diabetes: >6.4glycemic control for adults with diabetes: <7.0 Result Comment: Incr eased risk for diabetes: 5.7 - 6.4 diabetes: >6.4 glycemic control for adults with diabetes: <7.0 Performed By: #### D JOSSE NATHAN T4, [id number], SEROTON, TEST F + T, T3R, THYGLOB AB, ESTRADIOL, TPO, SHBG, ESTRONE, INSULIN, PROG #### [facility] , #### T4F, TRISTEN, TSH3, A1C WTH eA, FILIBERTO, GLU, T3F #### [facility] [address] Insulinon 01-07-2024 Insulin 4.5 u[iU]/mL Normal 2.6-24.9 [facility] Comment on above: Result Comment: Perf ormed at: - [facility] [address] [id number] [employer] Cards [employer] Announcements: Baudilio Leyva PhD, Phone: [phone] Performed By: #### D JOSSE NATHAN T4, [id number], SEROTON, TEST F + T, T3R, THYGLOB AB, ESTRADIOL, TPO, SHBG, ESTRONE, INSULIN, PROG #### [facility] , #### T4F, TRISTEN, TSH3, A1C WTH eA, FILIBERTO, GLU, T3F #### [facility] [address] Lab Alie Thyroxine (T4)on T4 [Mass/Vol] 8.2 ug/dL Normal 4.5-12.0 [facility] Comment on above: Performed By: #### D HEAS, LC T4, [id number], SEROTON, TEST F + T, T3R, THYGLOB AB, ESTRADIOL, TPO, SHBG, ESTRONE, INSULIN, PROG #### [facility] , #### T4F, TRISTEN, TSH3, A1C WTH eA, FILIBERTO, GLU, T3F #### [facility] [address] No Panel InformationOrdered By: Deisy Haji on 01-07-2024 Free Thyroxine (T4) Direct 8.2 ug/dL 4.5-12.0 [facility] Reverse Triiodothyronine (T3) 18.9 ng/dL 9.2-24.1 [facility] Comment on above: This test was develo ped and its performance characteristicsdetermined by [employer]. It has not been cleared orapproved by the Food and Drug Administration.Performed at: [facility] [employer] [id number] Director: Quinton Wolf MD, Phone: [phone] Sex Hormone Binding Globulin 95.4 nmol/L 24.6-122.0 [facility] Comment on above: Performed at: [address] [id number] Director: Baudilio Leyva PhD, Phone: [phone] Plasma serotonin measurement (mass/volume)Ordered By: Deisy Haji on 01-07-2024 Serotonin (P) [Mass/Vol] 71 ng/mL 31-207 [facility] Comment on above: This test was develo ped and its performance characteristicsdetermined by [employer]. It has not been cleared orapproved by the Food and Drug Administration.Performed at: [facility] [employer] [id number] Director: Quinton Wolf MD, Phone: [phone] Progesteroneon 01-07-2024 Progesterone 0.2 ng/mL Normal . [facility] Comment on above: Result Comment: Foll icular phase 0.1 - 0.9 Luteal phase 1.8 - 23.9 Ovulation phase 0.1 - 12.0 First trimester 11.0 - 44.3 Second trimester 25.4 - 83.3 Third trimester 58.7 - 214.0 Postmenopausal 0.0 - 0.1 Performed By: #### D VENITA, LC T4, [id number], SEROTON, TEST F + T, T3R, THYGLOB AB, ESTRADIOL, TPO, SHBG, ESTRONE, INSULIN, PROG #### [facility] , #### T4F, TRISTEN, TSH3, A1C WTH eA, FILIBERTO, GLU, T3F #### [facility] [address] Random cortisol measurementO rdered By: Deisy Haji on 01-07-2024 Cortisol [Mass/Vol] 6.8 ug/dL [facility] Comment on above: [facility] academic associate and method:Bplats DXI, POLYCLONAL ANTIBODY CORTISOL ASSAY.Reference range: AM 6 - 24 ug/dl PM <10 ug/dl Serotonin, Serumon 4 Serotonin, Serum 71 ng/mL Normal 31-207 [facility] Comment on above: Result Comment: This test was developed and its performance characteristics determined by [employer]. It has not been cleared or approved by the Food and Drug Administration. Performed at: [address] [id number] [employer] Cards [employer] Announcements: Quinton Wolf MD, Phone: [phone] PERFORMED BY: [place] [address] PATHOLOGIST RABBIT BREEDER JOSE GOEL M.D. Performed By: #### D VENITA, JOSSE T4, [id number], SEROTON, TEST F + T, T3R, THYGLOB AB, ESTRADIOL, TPO, SHBG, ESTRONE, INSULIN, PROG #### [facility] , #### T4F, TRISTEN, TSH3, A1C WTH eA, FILIBERTO, GLU, T3F #### [facility] [address] Serum estrone measurementOrd ered By: Deisy Haji on 01-07-2024 E1 [Mass/Vol] 46 pg/mL 27-231 [facility] Comment on above: Range Adult (Premeno pausal) 27 - 231 Menstrual Cycle (1-10 days) 19 - 149 Menstrual Cycle (11-20 days) 32 - 176 Menstrual Cycle (21-30 days) 37 - 200Performed at: BN - [facility] [address] [id number] Director: Quinton Wolf MD, Phone: [phone] Serum or plasma calcitriol m easurement (mass/volume)Ordered By: Deisy Haji on 01-07-2024 1,25-dihydroxyvitamin D3 [Mass/Vol] 56.6 pg/mL 24.8-81.5 [facility] Comment on above: Performed at: BN - [facility] [address] [id number] Director: Quinton Wolf MD, Phone: [phone] Serum or plasma estradiol (E 2) measurement (mass/volume)Ordered By: Deisy Haji on 01-07-2024 E2 [Mass/Vol] 300.0 pg/mL . [facility] Comment on above: Adult Female Range F ollicular phase 12.5 - 166.0 Ovulation phase 85.8 - 498.0 Luteal phase 43.8 - 211.0 Postmenopausal <6.0 - 54.7 1st trimester 215.0 - >4300.0Roche ECLIA methodology Serum or plasma insulin kevin urement (units/volume)Ordered By: Deisy Haji on 01-07-2024 Insulin Qn 4.5 u[iU]/mL 2.6-24.9 [facility] Comment on above: Performed at: - [facility] [address] [id number] Director: Baudilio Leyva PhD, Phone: [phone] Serum or plasma progesterone measurement (mass/volume)Ordered By: Deisy Haji on 01-07-2024 Progesterone [Mass/Vol] 0.2 ng/mL . [facility] Comment on above: Follicular phase 0.1 - 0.9 Luteal phase 1.8 - 23.9 Ovulation phase 0.1 - 12.0 First trimester 11.0 - 44.3 Second trimester 25.4 - 83.3 Third trimester 58.7 - 214.0 Postmenopausal 0.0 - 0.1 Serum or plasma thyroglobuli n antibody assay (units/volume)Ordered By: Deisy Haji on 01-07-2024 Thyroglobulin Ab Qn [IU]/mL 0.0-0.9 [facility] Comment on above: Thyroglobulin Antibo dy measured by BioinceptMethodologyPerformed at: [facility] [id number] Director: Baudilio Leyva PhD, Phone: [phone] Serum or plasma thyroperoxid ase antibody assay (units/volume)Ordered By: Deisy Haji on 01-07-2024 TPO Ab Qn [IU]/mL 0-34 [facility] Comment on above: Performed at: [facility] [address] [id number] Director: Baudilio Leyva PhD, Phone: [phone] Sex Hormone Binding Globulin on 01-07-2024 Sex Hormone Binding Globulin 95.4 Normal 24.6-122.0 [facility] Comment on above: Result Comment: Perf ormed at: [facility] [id number] [employer] Announcements: Baudilio Leyva PhD, Phone: [phone] Performed By: #### D VENITA, LC T4, [id number], SEROTON, TEST F + T, T3R, THYGLOB AB, ESTRADIOL, TPO, SHBG, ESTRONE, INSULIN, PROG #### [facility] , #### T4F, TRISTEN, TSH3, A1C WTH eA, FILIBERTO, GLU, T3F #### [address] Testosterone Free and TotalO rdered By: Deisy Haji on 01-07-2024 Testosterone [Mass/Vol] 16 ng/dL Normal 8-60 [facility] Comment on above: Performed By: #### D VENITA, LC T4, [id number], SEROTON, TEST F + T, T3R, THYGLOB AB, ESTRADIOL, TPO, SHBG, ESTRONE, INSULIN, PROG #### [facility] , #### T4F, TRISTEN, TSH3, A1C WTH eA, FILIBERTO, GLU, T3F #### [address] Testosterone Free and Totalo n 01-07-2024 Testosterone,Free 0.3 pg/mL Normal 0.0-4.2 [facility] Comment on above: Result Comment: Perf ormed at: [address] [id number] [employer] Announcements: Baudilio Leyva PhD, Phone: [phone] Performed at: [address] [id number] [employer] Announcements: Quinton Wolf MD, Phone: [phone] Performed By: #### Adria NATHAN, JOSSE T4, [id number], SEROTON, TEST F + T, T3R, THYGLOB AB, ESTRADIOL, TPO, SHBG, ESTRONE, INSULIN, PROG #### [facility] , #### T4F, TRISTEN, TSH3, A1C WTH eA, FILIBERTO, GLU, T3F #### [address] Thyroid Peroxidase Antibodie son 01-07-2024 Thyroid Peroxidase Antibodies <9 Normal 0-34 [facility] Comment on above: Result Comment: Perf ormed at: [address] [id number] [employer] Announcements: Baudilio Leyva PhD, Phone: [phone] Performed By: #### Adria NATHAN, LC T4, [id number], SEROTON, TEST F + T, T3R, THYGLOB AB, ESTRADIOL, TPO, SHBG, ESTRONE, INSULIN, PROG #### [facility] , #### T4F, TRISTEN, TSH3, A1C WTH eA, FILIBERTO, GLU, T3F #### [address] Thyrotropin [Units/volume] i n Serum or PlasmaOrdered By: Deisy Haji on 01-07-2024 TSH Qn 1.80 m[IU]/L Normal 0.45-5.33 [facility] Comment on above: Performed By: #### D HEAS, LC T4, [id number], SEROTON, TEST F + T, T3R, THYGLOB AB, ESTRADIOL, TPO, SHBG, ESTRONE, INSULIN, PROG #### [facility] , #### T4F, TRISTEN, TSH3, A1C WTH eA, FILIBERTO, GLU, T3F #### [facility] [address] [place] [address] [place] Thyroxine (T4) free [Mass/vo lume] in Serum or PlasmaOrdered By: Deisy Haji on 01-07-2024 Free T4 [Mass/Vol] 0.88 ng/dL Normal 0.61-1.12 [facility] Comment on above: Performed By: #### D HEAS, LC T4, [id number], SEROTON, TEST F + T, T3R, THYGLOB AB, ESTRADIOL, TPO, SHBG, ESTRONE, INSULIN, PROG #### [facility] , #### T4F, TRISTEN, TSH3, A1C WTH eA, FILIBERTO, GLU, T3F #### [place] [address] [place] Triiodothyronine (T3) Freeon 01-07-2024 Triiodothyronine (T3) Free 3.90 pg/mL Normal 2.50-3.90 [facility] Comment on above: Result Comment: PERF ORMED BY: [place] [address] PATHOLOGIST RABBIT BREEDER JOSE GOEL M.D. Performed By: #### D HEAS, LC T4, [id number], SEROTON, TEST F + T, T3R, THYGLOB AB, ESTRADIOL, TPO, SHBG, ESTRONE, INSULIN, PROG #### [facility] , #### T4F, TRISTEN, TSH3, A1C WTH eA, FILIBERTO, GLU, T3F #### [place] [id number] [place] Triiodothyronine (T3) Free [ Mass/volume] in Serum or PlasmaOrdered By: Deisy Haji on 01-07-2024 Free T3 [Mass/Vol] 3.90 pg/mL 2.50-3.90 [facility] Triiodothyronine (T3) Revers lonnie 01-07-2024 Triiodothyronine (T3) Reverse 18.9 ng/dL Normal 9.2-24.1 [facility] Comment on above: Result Comment: This test was developed and its performance characteristics determined by [facility]. It has not been cleared or approved by the Food and Drug Administration. Performed at: [facility] [address] [id number] [employer] Cards [employer] Announcements: Quinton Wolf MD, Phone: [phone] Performed By: #### D HEAS, LC T4, [id number], SEROTON, TEST F + T, T3R, THYGLOB AB, ESTRADIOL, TPO, SHBG, ESTRONE, INSULIN, PROG #### [facility] , #### T4F, TRISTEN, TSH3, A1C WTH eA, FILIBERTO, GLU, T3F #### [facility] [address] Alanine aminotransferase [En zymatic activity/volume] in Serum or PlasmaOrdered By: Delano Francis on 09-17-2023 ALT [Catalytic activity/Vol] 20 U/L 7-52 [facility] Albumin [Mass/volume] in Ser um or Plasma by Bromocresol green (BCG) dye binding methoOrdered By: Delano Francis on 09-17-2023 Albumin BCG dye [Mass/Vol] 4.3 g/dL 3.5-5.7 [facility] Alkaline phosphatase [Enzyma tic activity/volume] in Serum or PlasmaOrdered By: Delano Francis on 09-17-2023 ALP [Catalytic activity/Vol] 62 U/L 34-104 [facility] Aspartate aminotransferase [ Enzymatic activity/volume] in Serum or PlasmaOrdered By: Delano Francis on 09-17-2023 AST [Catalytic activity/Vol] 22 U/L 13-39 [facility] Basophils Auto (Bld) [#/Vol] Ordered By: Delano Francis on 09-17-2023 Basophils (Bld) [#/Vol] 0.0 10*3/uL 0.0-0.2 [facility] Basophils/100 WBC Auto (Bld) Ordered By: Delano Francis on 09-17-2023 Basophils/100 WBC (Bld) 0.4 % . [facility] Bilirubin.total [Mass/volume ] in Serum or PlasmaOrdered By: Delano Francis on 09-17-2023 Bilirubin [Mass/Vol] 0.7 mg/dL 0.3-1.0 [facility] Calcium [Mass/volume] in Ser um or PlasmaOrdered By: Delano Francis on 09-17-2023 Calcium [Mass/Vol] 9.4 mg/dL 8.6-10.3 [facility] Carbon dioxide, total [Moles /volume] in Serum or PlasmaOrdered By: Delano Francis on 09-17-2023 CO2 [Moles/Vol] 26.2 mmol/L 21.0-31.0 [facility] Chloride [Moles/volume] in S stevo or PlasmaOrdered By: Delano Francis on 09-17-2023 Chloride [Moles/Vol] 102 mmol/L 98-107 [facility] Cholesterol [Mass/volume] in Serum or PlasmaOrdered By: Delano Francis on 09-17-2023 Cholesterol [Mass/Vol] 214 mg/dL 140-200 [facility] Comment on above: Chol less than 200 m g/dl low riskChol 201-239 mg/dl borderline riskChol 240 mg/dl and greater high risk Cholesterol in LDL Calc [Mas s/Vol]Ordered By: Delano Francis on 09-17-2023 Cholesterol in LDL [Mass/Vol] 161 mg/dL 0-100 [facility] Comment on above: LDL ATP III CLASSIFI CATIONLDL less than 100 mg/dL OptimalLDL 100-129 mg/dL Near or above optimalLDL 130-159 mg/dL Borderline highLDL 160-189 mg/dL HighLDL greater than 189 mg/dL Very high Cholesterol in VLDL Calc [Ma ss/Vol]Ordered By: Delano Francis on 09-17-2023 Cholesterol in VLDL [Mass/Vol] 9 mg/dL [facility] Creatinine [Mass/volume] in Serum or PlasmaOrdered By: Delano Francis on 09-17-2023 Creatinine [Mass/Vol] 0.79 mg/dL 0.60-1.20 [facility] Eosinophils Auto (Bld) [#/Vo l]Ordered By: Delano Francis on 09-17-2023 Eosinophils (Bld) [#/Vol] 0.1 10*3/uL 0.0-0.45 [facility] Eosinophils/100 WBC Auto (Bl d)Ordered By: Delano Francis on 09-17-2023 Eosinophils/100 WBC (Bld) 0.9 % . [facility] Erythrocyte distribution wid th Auto (RBC) [Ratio]Ordered By: Delano Francis on 09-17-2023 Erythrocyte distribution width (RBC) [Ratio] 12.4 % 11.9-15.3 [facility] Globulin Calc (S) [Mass/Vol] Ordered By: Delano Francis on 09-17-2023 Globulin (S) [Mass/Vol] 2.5 g/dL [facility] Glucose [Mass/volume] in Ser um or PlasmaOrdered By: Delano Francis on 09-17-2023 Glucose [Mass/Vol] 75 mg/dL 70-100 [facility] Hematocrit Auto (Bld) [Volum e fraction]Ordered By: Delano Francis on 09-17-2023 Hematocrit (Bld) [Volume fraction] 34.2 % 34.0-46.4 [facility] Hemoglobin [Mass/volume] in BloodOrdered By: Delano Francis on 09-17-2023 Hemoglobin (Bld) [Mass/Vol] 11.8 g/dL 11.8-15.4 [facility] Leukocytes [#/volume] correc calvin for nucleated erythrocytes in Blood by Automated counOrdered By: Delano Francis on 09-17-2023 WBC corrected for nucl RBC Auto (Bld) [#/Vol] 5.9 10*3/uL 3.8-11.6 [facility] Lymphocytes Auto (Bld) [#/Vo l]Ordered By: Delano Francis on 09-17-2023 Lymphocytes (Bld) [#/Vol] 1.8 10*3/uL 1.00-4.8 [facility] Lymphocytes/100 WBC Auto (Bl d)Ordered By: Delano Francis on 09-17-2023 Lymphocytes/100 WBC (Bld) 30.5 % . [facility] MCH Auto (RBC) [Entitic mass ]Ordered By: Delano Francis on 09-17-2023 MCH (RBC) [Entitic mass] 31.8 pg 24.7-34.3 [facility] MCHC Auto (RBC) [Mass/Vol]Or dered By: Delano Francis on 09-17-2023 MCHC (RBC) [Mass/Vol] 34.4 g/dL 32.0-35.0 [facility] MCV Auto (RBC) [Entitic vol] Ordered By: Delano Francis on 09-17-2023 MCV (RBC) [Entitic vol] 92.5 fL 80-100 [facility] Monocytes Auto (Bld) [#/Vol] Ordered By: Delano Francis on 09-17-2023 Monocytes (Bld) [#/Vol] 0.5 10*3/uL 0.0-0.8 [facility] Monocytes/100 WBC Auto (Bld) Ordered By: Delano Francis on 09-17-2023 Monocytes/100 WBC (Bld) 9.2 % . [facility] Neutrophils Auto (Bld) [#/Vo l]Ordered By: Delano Francis on 09-17-2023 Neutrophils (Bld) [#/Vol] 3.5 10*3/uL 1.8-7.7 [facility] Neutrophils/100 WBC Auto (Bl d)Ordered By: Delano Francis on 09-17-2023 Neutrophils/100 WBC (Bld) 59.0 % . [facility] No Panel InformationOrdered By: Delano Francis on 09-17-2023 Estimated GFR (CKD-EPI) > 60.0 mL/Min [facility] Creatinine Clearance (Chem N/A [facility] Nucleated erythrocytes [Pres ence] in Blood by Automated countOrdered By: Delano Francis on 09-17-2023 Nucleated RBC Auto Ql (Bld) 0.2 /100{WBC} 0-0.5 [facility] Platelet mean volume Auto (B ld) [Entitic vol]Ordered By: Delano Francis on 09-17-2023 Platelet mean volume (Bld) [Entitic vol] 8.1 fL 6.3-10.7 [facility] Platelets Auto (Bld) [#/Vol] Ordered By: Delano Francis on 09-17-2023 Platelets (Bld) [#/Vol] 250 10*3/uL 150-450 [facility] Potassium [Moles/volume] in Serum or PlasmaOrdered By: Delano Francis on 09-17-2023 Potassium [Moles/Vol] 4.0 mmol/L 3.5-5.1 [facility] Protein [Mass/volume] in Ser um or PlasmaOrdered By: Delano Francis on 09-17-2023 Protein [Mass/Vol] 6.8 g/dL 6.4-8.9 [facility] RBC Auto (Bld) [#/Vol]Ordere d By: Delano Francis on 09-17-2023 RBC (Bld) [#/Vol] 3.70 10*6/uL 3.60-5.00 [facility] Serum or plasma albumin/glob ulin mass ratioOrdered By: Delano Francis on 09-17-2023 Albumin/Globulin [Mass ratio] 1.7 {ratio} [facility] Serum or plasma anion gap de terminationOrdered By: Delano Francis on 09-17-2023 Anion gap [Moles/Vol] 10.8 mmol/L 6.0-15.0 [facility] Serum or plasma high density lipoprotein (HDL) cholesterol measurementOrdered By: Delano Francis on 09-17-2023 Cholesterol in HDL [Mass/Vol] 43 mg/dL 23-92 [facility] Comment on above: HDL CHOL ATP-III CLA SSIFICATION Cardiovascular RiskHDL > or equal to 60 mg/dL LOWHDL < 40 mg/dL HIGH Serum or plasma total choles terol/high density lipoprotein (HDL) cholesterol mass ratOrdered By: Delano Francis on 09-17-2023 Cholesterol.total/Alivia sterol in HDL [Mass ratio] 5.0 {ratio} <5.0 [facility] Sodium [Moles/volume] in Ser um or PlasmaOrdered By: Delano Francis on 09-17-2023 Sodium [Moles/Vol] 135 mmol/L 136-145 [facility] Thyrotropin [Units/volume] i n Serum or PlasmaOrdered By: Delano Francis on 09-17-2023 TSH Qn 1.04 m[IU]/L 0.45-5.33 [facility] Triglyceride [Mass/volume] i n Serum or PlasmaOrdered By: Delano Francis on 09-17-2023 Triglyceride [Mass/Vol] 48 mg/dL 0-149 [facility] Comment on above: TRIG ATP III CLASSIF ICATIONTRIG less than 150 mg/dL NormalTRIG 150-199 mg/dL Borderline highTRIG 200-500 mg/dL High TRIG greater than 500 mg/dL Very highStandard traceable to the Center for Disease Conrtrol and Prevention (CDC) test method. Urea nitrogen [Mass/volume] in Serum or PlasmaOrdered By: Delano Francis on 09-17-2023 Urea nitrogen [Mass/Vol] 7 mg/dL 7-25 [facility] WBC Auto (Bld) [#/Vol]Ordere d By: Delano Francis on 09-17-2023 WBC (Bld) [#/Vol] 5.9 10*3/uL 3.8-11.6 [facility] Mononucleosis Test, Qualon 1 Heterophile Ab LA Ql (S) Negative Newsy Other Quick Strepon 09-26-2022 S. pyogenes Org specific cx Ql (Throat) Negative Rare [employer] 4U Other Quick Strep [employer] Other SARS-CoV-2 (COVID-19) RNA NA A+probe Ql (Resp)on 09-26-2022 SARS-CoV-2 (COVID-19) RNA ROB+probe Ql (Unsp spec) Negative [employer] Other PAP ACOG PANEL 2: 30 to 65on 09-01-2022 . . Normal [facility] Comment on above: Result Comment: Perf ormed at: WB Performed By: #### [id number] #### [facility] [address] [place] [address] Dr. Zonia Zhang Age Gdln ACOG Testing 30-65 Normal [facility] Comment on above: Performed By: #### [id number] #### [facility] [address] [place] [address] Dr. Zonia Zhang DIAGNOSIS: Comment Normal [facility] Comment on above: Result Comment: NEGA TIVE FOR INTRAEPITHELIAL LESION OR MALIGNANCY. Performed at: WB Performed By: #### [id number] #### [facility] [address] [place] [address] Dr. Zonia Zhang HPV Aptima Negative Normal Negative [facility] Comment on above: Result Comment: This nucleic acid amplification test detects fourteen high-risk HPV types (16,18,31,33,35,39,45,51,52,56,58,59,66,68) without differentiation. Performed at: =G Performed By: #### [id number] #### [facility] [address] [place] [address] Dr. Zonia Zhang Methodology: Comment Normal [facility] Comment on above: Result Comment: This liquid based ThinPrep(R) pap test was screened with the use of an image guided system. Performed at: WB Performed By: #### [id number] #### [facility] [address] [place] [address] Dr. Zonia Zhang Note: Comment Normal [facility] Comment on above: Result Comment: The Pap smear is a screening test designed to aid in the detection of premalignant and malignant conditions of the uterine cervix. It is not a diagnostic procedure and should not be used as the sole means of detecting cervical cancer. Both false-positive and false-negative reports do occur. . Performed at: WB Performed By: #### [id number] #### [facility] [address] [place] [address] Dr. Zonia Zhang Performed by: Comment Normal [facility] Comment on above: Result Comment: Negin Tomas, Pilot (ASCP) Performed at: WB Performed By: #### [id number] #### [facility] [address] [place], [place] [address] Dr. Zonia Zhang Specimen adequacy: Comment Normal [facility] Comment on above: Result Comment: Sati sfactory for evaluation. Endocervical and/or squamous metaplastic cells (endocervical component) are present. Performed at: WB Performed By: #### [id number] #### [facility] [address] [place], [place] [address] Dr. Zonia Zhang Basophils Auto (Bld) [#/Vol] Ordered By: Delano Francis on 08-07-2022 Basophils (Bld) [#/Vol] 0.0 10*3/uL 0.0-0.2 [facility] Basophils/100 WBC Auto (Bld) Ordered By: Delano Francis on 08-07-2022 Basophils/100 WBC (Bld) 0.5 % . [facility] Blood hemoglobin measurement (mass/volume)Ordered By: Delano Francis on 08-07-2022 Hemoglobin (Bld) [Mass/Vol] 12.7 g/dL 11.8-15.4 [facility] Blood leukocytes automated c ount (number/volume)Ordered By: Delano Francis on 08-07-2022 WBC (Bld) [#/Vol] 5.0 10*3/uL 4.5-11.0 [facility] Body fluid albumin measureme nt (mass/volume)Ordered By: Delano Francis on 08-07-2022 Albumin (Body fld) [Mass/Vol] 4.1 g/dL 3.2-5.5 [facility] Cholesterol [Mass/volume] in Serum or PlasmaOrdered By: Delano Francis on 08-07-2022 Cholesterol [Mass/Vol] 253 mg/dL 140-200 [facility] Comment on above: Chol less than 200 m g/dl low risk Chol 201-239 mg/dl borderline risk Chol 240 mg/dl and greater high risk Chol less than 200 m g/dl low riskChol 201-239 mg/dl borderline riskChol 240 mg/dl and greater high risk Cholesterol in LDL Calc [Mas s/Vol]Ordered By: Delano Francis on 08-07-2022 Cholesterol in LDL [Mass/Vol] 181 mg/dL 0-100 [facility] Comment on above: LDL ATP III CLASSIFI CATION LDL less than 100 mg/dL Optimal LDL 100-129 mg/dL Near or above optimal LDL 130-159 mg/dL Borderline high LDL 160-189 mg/dL High LDL greater than 189 mg/dL Very high LDL ATP III CLASSIFI CATIONLDL less than 100 mg/dL OptimalLDL 100-129 mg/dL Near or above optimalLDL 130-159 mg/dL Borderline highLDL 160-189 mg/dL HighLDL greater than 189 mg/dL Very high Cholesterol in VLDL Calc [Ma ss/Vol]Ordered By: Delano Francis on 08-07-2022 Cholesterol in VLDL [Mass/Vol] 12 mg/dL [facility] Creatinine and Glomerular fi ltration rate.predicted panel (S/P/Bld)Ordered By: Delano Francis on 08-07-2022 Creatinine [Mass/Vol] 0.76 mg/dL 0.44-1.03 [facility] Eosinophils Auto (Bld) [#/Vo l]Ordered By: Delano Francis on 08-07-2022 Eosinophils (Bld) [#/Vol] 0.1 10*3/uL 0.0-0.45 [facility] Eosinophils/100 WBC Auto (Bl d)Ordered By: Delano Francis on 08-07-2022 Eosinophils/100 WBC (Bld) 1.6 % . [facility] Erythrocyte distribution wid th Auto (RBC) [Ratio]Ordered By: Delano Francis on 08-07-2022 Erythrocyte distribution width (RBC) [Ratio] 12.6 % 11.9-15.3 [facility] Estimated glomerular filtrat ion rate (GFR) non- AmericanOrdered By: Delano Francis on 08-07-2022 GFR/1.73 sq M.predicted among non-blacks MDRD (S/P/Bld) [Vol rate/Area] > 60 mL/Min [facility] Globulin Calc (S) [Mass/Vol] Ordered By: Delano Francis on 08-07-2022 Globulin (S) [Mass/Vol] 2.3 g/dL [facility] Hematocrit Auto (Bld) [Volum e fraction]Ordered By: Delano Francis on 08-07-2022 Hematocrit (Bld) [Volume fraction] 37.5 % 34.0-46.4 [facility] Laboratory - Chemistry and C hemistry - challengeOrdered By: Delano Francis on 08-07-2022 Glucose [Mass/Vol] 88 mg/dL 70-100 [facility] - Hematology and Cell countsOrdered By: Delano Francis on 08-07-2022 Nucleated RBC/100 WBC (Bld) [Ratio] 0.1 % 0-0.5 [facility] Lymphocytes Auto (Bld) [#/Vo l]Ordered By: Delano Francis on 08-07-2022 Lymphocytes (Bld) [#/Vol] 1.4 10*3/uL 1.00-4.8 [facility] Lymphocytes/100 WBC Auto (Bl d)Ordered By: Delano Francis on 08-07-2022 Lymphocytes/100 WBC (Bld) 28.1 % . [facility] MCH Auto (RBC) [Entitic mass ]Ordered By: Delano Francis on 08-07-2022 MCH (RBC) [Entitic mass] 31.8 pg 24.7-34.3 [facility] MCHC Auto (RBC) [Mass/Vol]Or dered By: Delano Francis on 08-07-2022 MCHC (RBC) [Mass/Vol] 33.8 g/dL 32.0-35.0 [facility] MCV Auto (RBC) [Entitic vol] Ordered By: Delano Francis on 08-07-2022 MCV (RBC) [Entitic vol] 94.3 fL 80-100 [facility] Monocyte %Ordered By: Delano Francis on 08-07-2022 Monocyte % 60 mg/dL 35-149 [facility] Comment on above: TRIG ATP III CLASSIF ICATION TRIG less than 150 mg/dL Normal TRIG 150-199 mg/dL Borderline high TRIG 200-500 mg/dL High TRIG greater than 500 mg/dL Very high Standard traceable to the Center for Disease Conrtrol and Prevention (CDC) test method. TRIG ATP III CLASSIF ICATIONTRIG less than 150 mg/dL NormalTRIG 150-199 mg/dL Borderline highTRIG 200-500 mg/dL High TRIG greater than 500 mg/dL Very highStandard traceable to the Center for Disease Conrtrol and Prevention (CDC) test method. Monocytes Auto (Bld) [#/Vol] Ordered By: Delano Francis on 08-07-2022 Monocytes (Bld) [#/Vol] 0.5 10*3/uL 0.0-0.8 [facility] Monocytes/100 WBC Auto (Bld) Ordered By: Delano Francsi on 08-07-2022 Monocytes/100 WBC (Bld) 10.1 % . [facility] Neutrophils Auto (Bld) [#/Vo l]Ordered By: Delano Francis on 08-07-2022 Neutrophils (Bld) [#/Vol] 3.0 10*3/uL 1.8-7.7 [facility] Neutrophils/100 WBC Auto (Bl d)Ordered By: Delano Francis on 08-07-2022 Neutrophils/100 WBC (Bld) 59.7 % . [facility] No Panel InformationOrdered By: Delano Francis on 08-07-2022 Estimated GFR () > 60 mL/Min [facility] Comment on above: GFR estimated refere nce range: According to KDOQI guidelines, <60 ml/min/1.73m2 is sufficient to diagnose a patient with chronic kidney disease. Nicotine Metabolite Negative Cutoff=25 [facility] Comment on above: Performed at: - [address] [id number] Director: Quinton Wolf MD, Phone: [phone] Pharmacy Creatinine Clearance (Chem N/A [facility] Platelet mean volume Auto (B ld) [Entitic vol]Ordered By: Delano Francis on 08-07-2022 Platelet mean volume (Bld) [Entitic vol] 7.8 fL 6.3-10.7 [facility] Platelets Auto (Bld) [#/Vol] Ordered By: Delano Francis on 08-07-2022 Platelets (Bld) [#/Vol] 275 10*3/uL 150-450 [facility] Protein [Mass/volume] in Ser um or PlasmaOrdered By: Delano Francis on 08-07-2022 Protein [Mass/Vol] 6.4 g/dL 6.1-7.9 [facility] RBC Auto (Bld) [#/Vol]Ordere d By: Delano Francis on 08-07-2022 RBC (Bld) [#/Vol] 3.97 10*6/uL 3.60-5.00 [facility] Serum or plasma alanine troy otransferase measurement without P-5'-P (enzymatic activiOrdered By: Delano Francis on 08-07-2022 ALT No additional P-5'-P [Catalytic activity/Vol] 13 U/L 10-60 [facility] Serum or plasma albumin/glob ulin mass ratioOrdered By: Delano Francis on 08-07-2022 Albumin/Globulin [Mass ratio] 1.8 {ratio} [facility] Serum or plasma alkaline nova sphatase measurement (enzymatic activity/volume)Ordered By: Delano Francis on 08-07-2022 ALP [Catalytic activity/Vol] 52 U/L 32-92 [facility] Serum or plasma anion gap de terminationOrdered By: Delano Francis on 08-07-2022 Anion gap [Moles/Vol] 11.7 mmol/L 6.0-15.0 [facility] Serum or plasma aspartate am inotransferase measurement (enzymatic activity/volume)Ordered By: Delano Francis on 08-07-2022 AST [Catalytic activity/Vol] 15 U/L 10-42 [facility] Serum or plasma calcium kevin urement (mass/volume)Ordered By: Delano Francis on 08-07-2022 Calcium [Mass/Vol] 9.8 mg/dL 8.2-10.2 [facility] Serum or plasma chloride ra surement (moles/volume)Ordered By: Delano Francis on 08-07-2022 Chloride [Moles/Vol] 101 mmol/L 95-114 [facility] Serum or plasma high density lipoprotein (HDL) cholesterol measurementOrdered By: Delano Francis on 08-07-2022 Cholesterol in HDL [Mass/Vol] 60 mg/dL 35-85 [facility] Comment on above: HDL CHOL ATP-III CLA SSIFICATION Cardiovascular Risk HDL > or equal to 60 mg/dL LOW HDL < 40 mg/dL HIGH HDL CHOL ATP-III CLA SSIFICATION Cardiovascular RiskHDL > or equal to 60 mg/dL LOWHDL < 40 mg/dL HIGH Serum or plasma potassium me asurement (moles/volume)Ordered By: Delano Francis on 08-07-2022 Potassium [Moles/Vol] 4.4 mmol/L 3.5-5.1 [facility] Serum or plasma sodium measu rement (moles/volume)Ordered By: Delano Francis on 08-07-2022 Sodium [Moles/Vol] 136 mmol/L 136-146 [facility] Serum or plasma total biliru bin measurement (mass/volume)Ordered By: Delano Francis on 08-07-2022 Bilirubin [Mass/Vol] 1.0 mg/dL 0.3-1.2 [facility] Serum or plasma total carbon dioxide measurement (moles/volume)Ordered By: Delano Francis on 08-07-2022 CO2 [Moles/Vol] 27.7 mmol/L 22.0-30.0 [facility] Serum or plasma total choles terol/high density lipoprotein (HDL) cholesterol mass ratOrdered By: Delano Francis on 08-07-2022 Cholesterol.total/Alivia sterol in HDL [Mass ratio] 4.2 {ratio} <5.0 [facility] Serum or plasma urea nitroge n measurement (mass/volume)Ordered By: Delano Francis on 08-07-2022 Urea nitrogen [Mass/Vol] 9 mg/dL 9-23 [facility] TSH DL <= 0.005 mIU/L QnOrde red By: Delano Francis on 08-07-2022 TSH Qn 1.43 m[IU]/L 0.45-5.33 [facility] T3, TOTAL (TRIIODOTHYRONINE) on 06-07-2022 T3, TOTAL 88 ng/dL Normal 71-[address] [facility] Comment on above: Performed By: #### T 3TOTAL #### [facility] [address] [address] [address] Zonia Zhang FREE T4on 06-06-2022 Free T4 [Mass/Vol] 0.94 ng/dL Normal 0.76-1.46 [facility] Comment on above: Performed By: #### F T4 #### [facility] [address] [address] [address] Zonia Zhang TSHon 06-06-2022 TSH 1.364 uIU/mL Normal 0.358-3.74 0 [facility] Comment on above: Performed By: #### T SH #### [facility] [address] [address] [address] Zonia Zhang COVID Quick Testingon 2021 Result Positive [facility] Other Quick Fluon 12-27-2021 FLUAV Ab CF (S) [Titer] Negative N [facility] Other FLUBV Ab CF (S) [Titer] Negative N [facility] Other Vital Signs Date Time Vital Sign Value Performing Clinician Facility 10-18-2024 11:19-050 Body height 170.18 cm Robles Ball DO Work Phone: [facility] 10-18-2024 11:19-0500 Body mass index (BMI) [Ratio] 29.7 kg/m2 Robles Ball DO Work Phone: [facility] 10-18-2024 11:19-050 Body weight 86.23 kg Robles Ball DO Work Phone: [facility] 10-18-2024 11:19-0500 Diastolic blood pressure 77 mm[Hg] Robles Ball DO Work Phone: [facility] 10-18-2024 11:19-0500 Heart rate 88 /min Robles Ball DO Work Phone: [facility] 10-18-2024 11:19-0500 Respiratory rate 12 /min Robles Ball DO Work Phone: [facility] 10-18-2024 11:19-0500 Systolic blood pressure 111 mm[Hg] Robles Ball DO Work Phone: [facility] 09-13-2024 14:28-0400 Body mass index (BMI) [Ratio] 28.79 kg/m2 Le Sita DO Work Phone: [facility] 09-13-2024 14:28-0400 Body weight 83.37 kg El Sita DO Work Phone: [facility] 09-13-2024 14:28-0400 Diastolic blood pressure 70 mm[Hg] Le Sita DO Work Phone: [facility] 09-13-2024 14:28-0400 Systolic blood pressure 120 mm[Hg] Le Sita DO Work Phone: [facility] 05-03-2024 14:40-0400 Body height 170.18 cm [facility] 05-03-2024 14:40-0400 Body mass index (BMI) [Ratio] 28.3 kg/m2 [facility] 05-03-2024 14:40-0400 Body weight 82.1 kg [facility] 05-03-2024 14:40-0400 Diastolic blood pressure 82 mm[Hg] [facility] 05-03-2024 14:40-0400 Heart rate 78 /min [facility] 05-03-2024 14:40-0400 SaO2% (BldA) [Mass fraction] 98 % [facility] 05-03-2024 14:40-0400 Systolic blood pressure 122 mm[Hg] [facility] 01-06-2024 14:20-0500 Body height 170.2 cm Deisy MUNOZ Work Phone: [facility] 01-06-2024 14:20-0500 Body mass index (BMI) [Ratio] 28.05 kg/m2 Deisy MUNOZ Work Phone: [facility] 01-06-2024 14:20-0500 Body weight 81.25 kg Deisy MUNOZ Work Phone: [facility] 01-06-2024 14:20-0500 Diastolic blood pressure 70 mm[Hg] Deisy MUNOZ Work Phone: [facility] 01-06-2024 14:20-0500 Systolic blood pressure 120 mm[Hg] Deisy MUNOZ Work Phone: [facility] 10-02-2023 10:00-0400 Body height 170.18 cm Robles Ball Other [facility] Other 10-02-2023 10:00-0400 Body mass index (BMI) [Ratio] 29.38 kg/m2 Robles Ball Other [facility] Other 10-02-2023 10:00-0400 Body weight 85.1 kg Robles Ball Other [facility] Other 10-02-2023 10:00-0400 Diastolic blood pressure 83 mm[Hg] Robles Ball Other [facility] Other 10-02-2023 10:00-0400 Respiratory rate 12 /min Robles Ball Other [facility] Other 10-02-2023 10:00-0400 Systolic blood pressure 131 mm[Hg] Robles Ball Other [facility] Other 01-22-2023 10:30-0500 Body height 170.18 cm Robles Ball Other [facility] Other 01-22-2023 10:30-0500 Body mass index (BMI) [Ratio] 29.91 kg/m2 Robles Ball Other [facility] Other 01-22-2023 10:30-0500 Body weight 86.64 kg Robles Ball Other [facility] Other 01-22-2023 10:30-0500 Diastolic blood pressure 72 mm[Hg] Robles Ball Other [facility] Other 01-22-2023 10:30-0500 Respiratory rate 16 /min Robles Ball Other [facility] Other 01-22-2023 10:30-0500 Systolic blood pressure 122 mm[Hg] Robles Ball Other [facility] Other 09-26-2022 16:10-0400 Body height 170.18 cm Kiya Schaffer Other [facility] Other 09-26-2022 16:10-0400 Body mass index (BMI) [Ratio] 29.29 kg/m2 Kiya Schaffer Other [facility] Other 09-26-2022 16:10-0400 Body temperature 98.8 [degF] Kiya Schaffer Other [facility] Other 09-26-2022 16:10-0400 Body weight 84.82 kg Kiya Schaffer Other [facility] Other 09-26-2022 16:10-0400 Diastolic blood pressure 73 mm[Hg] Kiya Schaffer Other [facility] Other 09-26-2022 16:10-0400 Respiratory rate 18 /min Kiya Schaffer Other [facility] Other 09-26-2022 16:10-0400 SaO2% (BldA) [Mass fraction] 97 % Kiya Schaffer Other [employer] Other 09-26-2022 16:10-0400 Systolic blood pressure 125 mm[Hg] Kiya Schaffer Other [facility] Other 12-27-2021 10:15-0500 Body height 170.18 cm Elsi Mayer Other [facility] Other 12-27-2021 10:15-0500 Body mass index (BMI) [Ratio] 28.19 kg/m2 Elsi Mayer Other [facility] Other 12-27-2021 10:15-0500 Body temperature 100.3 [degF] Elsi Mayer Other [facility] Other 12-27-2021 10:15-0500 Body weight 81.65 kg Elsi Mayer Other [facility] Other 12-27-2021 10:15-0500 Respiratory rate 18 /min Elsi Mayer Other [facility] Other 12-27-2021 10:15-0500 SaO2% (BldA) [Mass fraction] 98 % Elsi Mayer Other [facility] Other Encounters Encounter Date Encounter Type Care Provider Facility Start: 10-18-2024 End: 10-18-2024 ambulatory Robles Ball DO Work Phone: [facility] Work Phone: Start: 10-18-2024 End: 10-18-2024 Encounter for general adult medical examination without abnormal findings Robles Ball DO Work Phone: [facility] Start: 10-18-2024 End: 10-18-2024 Patient encounter procedure Robles Ball DO Work Phone: [facility] Work Phone: Start: 10-16-2024 Patient encounter status Jermaine min Ball DO Work Phone: [facility] Start: 10-14-2024 Non-patient / Non-visit Benjam in Ball DO Work Phone: [facility] Work Phone: Start: 09-22-2024 End: 09-22-2024 Departed Referred DO Robles Charles Work Phone: [facility] Start: 09-22-2024 End: 09-22-2024 ambulatory DO Robles Charles Work Phone: [facility] Work Phone: Start: 09-13-2024 End: 09-13-2024 Bamboo flowsheet Le Sita DO Work Phone: [facility] Start: 09-13-2024 End: 09-20-2024 Bamboo flowsheet Le Sita DO Work Phone: [facility] Start: 09-13-2024 End: 09-20-2024 Clinisync Result Encounter Le Sita DO Work Phone: [facility] Unsolicited Start: 09-13-2024 End: 09-13-2024 Patient encounter procedure Le Sita DO Work Phone: [facility] Work Phone: Start: 09-13-2024 End: 09-13-2024 Periodic preventive med est patient 18-39 yrs Le Sita DO Work Phone: [facility] Comment on above: Well woman exam with routine gynecological exam Start: 09-13-2024 End: 09-13-2024 ambulatory LE SITA Not Available Start: 08-29-2024 End: 08-29-2024 ambulatory [facility] Work Phone: Start: 08-29-2024 End: 08-29-2024 Patient encounter procedure [facility] Work Phone: Start: 05-03-2024 End: 05-03-2024 ambulatory [facility] Work Phone: Start: 05-03-2024 End: 05-03-2024 Patient encounter procedure [facility] Work Phone: Start: 03-02-2024 End: 03-02-2024 ambulatory DEISY AUREA Not Available Start: 2024 End: 2024 ambulatory DO Robles Charles Work Phone: [facility] Work Phone: Start: 2024 End: 2024 Patient encounter procedure DO Robles Charles Work Phone: [facility] Work Phone: Start: 02-03-2024 End: 02-03-2024 ambulatory DEISY AUREA Not Available Start: 01-07-2024 End: 01-07-2024 Patient encounter procedure DO Robles Charles Work Phone: [facility] [place] Work Phone: Start: 01-07-2024 End: 01-07-2024 ambulatory DO Robles Charles Work Phone: [facility] Work Phone: Start: 01-06-2024 End: 01-06-2024 Office outpatient visit 15 minutes Deisy MUNOZ Work Phone: [facility] Comment on above: Encounter for weight management; Hormone disorder; 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 Start: 01-06-2024 End: 01-06-2024 ambulatory DEISY AUREA Not Available Start: 12-08-2023 End: 12-08-2023 ambulatory DEISY AUREA Not Available Start: 11-11-2023 End: 11-11-2023 ambulatory DEISY AUREA Not Available Start: 10-14-2023 End: 10-14-2023 ambulatory DEISY AUREA Not Available Start: 10-02-2023 End: 10-02-2023 ambulatory Robles Charles Other [facility] [employer] Other Start: 10-02-2023 Encounter for genera l adult medical examination without abnormal findings Robles Charles [facility] Start: 10-02-2023 Periodic preventive med est patient 18-[address] [facility] Start: 09-17-2023 End: 09-17-2023 ambulatory MD Liz Conteh Work Phone: [facility] Work Phone: Start: 09-17-2023 End: 09-17-2023 Departed Referred MD Liz Conteh Work Phone: [facility] Start: 01-22-2023 End: 01-22-2023 ambulatory Robles Charles Other [employer] Other Start: 01-22-2023 Office outpatient vi sit 15 minutes Robles Charles [facility] Start: 01-12-2023 End: 01-12-2023 ambulatory Robles Charles Other [employer] Other Start: 01-12-2023 Telephone encounter Robles Charles [facility] Start: 12-24-2022 End: 12-24-2022 ambulatory Robles Charles Other [employer] Other Start: 12-24-2022 Office outpatient vi sit 15 minutes Robles Charles [facility] Start: 09-30-2022 End: 09-30-2022 ambulatory Kiya Schaffer Other [employer] Other Start: 09-30-2022 Telephone encounter Kiya Schaffer [facility] Start: 09-26-2022 End: 09-26-2022 Departed Referred MD Liz Conteh Work Phone: [facility] [place] Start: 09-26-2022 End: 09-26-2022 ambulatory MD Liz Conteh Work Phone: [facility] Work Phone: Start: 09-26-2022 Office outpatient vi sit 15 minutes Kiya Schaffer [facility] Start: 09-25-2022 ([facility] C Vac) [facility] Co vid Vaccine Subhalucila Dillon [facility] Start: 09-25-2022 End: 09-25-2022 ambulatory MD Liz Conteh Work Phone: [facility] Work Phone: Start: 09-25-2022 End: 09-25-2022 Patient encounter procedure MD Liz Conteh Work Phone: [facility]Covid Vaccine Off Site Start: 08-25-2022 End: 08-25-[address] LE BUCKNER Facility:[facility] Start: 08-07-2022 End: 08-07-2022 Departed Referred MD Liz Conteh Work Phone: [facility]-[employer] Start: 06-06-2022 End: 06-07-[address] ROBLES CHARLES Facility:[facility] Start: 01-01-2022 End: 01-01-2022 ambulatory Elsi Leyla Other [facility] [employer] Other Start: 01-01-2022 Office outpatient vi sit 5 minutes Elsi Leyla [facility] Start: 12-27-2021 End: 12-27-2021 ambulatory Elsi Leyla Other [facility] Other Start: 12-27-2021 Office outpatient vi sit 15 minutes Elsi Leyla [facility] Start: 08-23-2021 ([facility] C Vac) [facility] Co vid Vaccine Subha Dillon [facility] Procedures Date Procedure Procedure Detail Performing Clinician Start: 09-13-2024 IGP,APTIMA HPV,AGE GDLN Le Buckner DO Work Phone: Start: 06-19-2020 Microscopic observat ion [Identifier] in Cervix by Cyto stain Deisy MUNOZ Work Phone: Plan of Treatment Date Care Activity Detail Author Start: 09-19-2025 End: 09-19-2025 Patient encounter procedure 09/19/2025 8:30 AM EDT Office Visit [facility] [address] [place] [address] Le Buckner DO [address] [place] [address] [facility] Start: 06-19-2025 Screening for malignant neoplasm of cervix [facility] Start: 09-13-2024 End: 09-13-2024 Patient encounter procedure [facility] Comment on above: Arrived Start: 07-31-2024 Influenza vaccination Influenza Vaccine (#1) [facility] Start: 02-03-2024 End: 02-03-2024 Patient encounter procedure 02/03/2024 1:50 PM EST Office Visit [facility] [address] [place] [id number] Deisy Haji PA [address] [place] [address] [facility] Start: 01-07-2024 Dehydroepiandrosterone sulfate level [facility] Start: 01-07-2024 Sex hormone binding globulin measurement [facility] Start: 01-07-2024 T3 reverse measurement [facility] Start: 01-07-2024 Thyroxine measurement [facility] Start: 01-07-2024 [facility] Start: 01-06-2024 End: 01-06-2025 Anti-thyroglobulin antibody Anti-thyroglobulin antibody Lab Routine Hormone disorder Expected: 01/06/2024 (Approximate), Expires: 01/06/2025 [facility] Comment on above: Expected: 01/06/2024 (Approximate), Expi res: 01/06/2025 Start: 01-06-2024 End: 01-06-2025 C-peptide C-peptide Lab Routine Hormone disorder Expected: 01/06/2024 (Approximate), Expires: 01/06/2025 [facility] Comment on above: Expected: 01/06/2024 (Approximate), Expi res: 01/06/2025 Start: 01-06-2024 End: 01-06-2025 Cortisol free Cortisol, free Lab Routine Hormone disorder Expected: 01/06/2024 (Approximate), Expires: 01/06/2025 [facility] Comment on above: Expected: 01/06/2024 (Approximate), Expi res: 01/06/2025 Start: 01-06-2024 End: 01-06-2025 Glucose [Mass/volume] in Serum or Plasma Glucose, random Lab Routine Hormone disorder Expected: 01/06/2024 (Approximate), Expires: 01/06/2025 [facility] Comment on above: Expected: 01/06/2024 (Approximate), Expi res: 01/06/2025 Start: 01-06-2024 End: 01-06-2025 Insulin, total Insulin, total Lab Routine Hormone disorder Expected: 01/06/2024 (Approximate), Expires: 01/06/2025 [facility] Comment on above: Expected: 01/06/2024 (Approximate), Expi res: 01/06/2025 Start: 01-06-2024 End: 01-06-2025 Serotonin serum Serotonin serum Lab Routine Hormone disorder Expected: 01/06/2024 (Approximate), Expires: 01/06/2025 [facility] Comment on above: Expected: 01/06/2024 (Approximate), Expi res: 01/06/2025 Start: 01-06-2024 End: 01-06-2025 Thyroglobulin Thyroglobulin Lab Routine Hormone disorder Expected: 01/06/2024 (Approximate), Expires: 01/06/2025 [facility] Comment on above: Expected: 01/06/2024 (Approximate), Expi res: 01/06/2025 Start: 01-06-2024 End: 01-06-2025 Thyrotropin [Units/volume] in Serum or Plasma [facility] Comment on above: Ordered: 01/06/2024 Expected: 01/06/2024 (Approximate), Expires: 01/06/2025 Start: 09-17-2023 [facility] Start: 08-07-2022 [facility] Work Phone: Calcitriol [Mass/vol ume] in Serum or Plasma [facility] Cytology Cervical or vaginal smear or scraping study Pap Smear Pathology and Cytology Routine Well woman exam with routine gynecological exam Ordered: 09/13/2024 [facility] Work Phone: Comment on above: Ordered: 09/13/2024 DHEA-sulfate DHEA-sulfate Lab Routine Hormone disorder Ordered: 01/06/2024 [facility] Comment on above: Ordered: 01/06/2024 Estradiol Estradiol Lab Ro utine Hormone disorder Ordered: 01/06/2024 [facility] Work Phone: Comment on above: Ordered: 01/06/2024 Estradiol (E2) [Mass /volume] in Serum or Plasma [facility] Estrone Estrone Lab Rout ine Hormone disorder Ordered: 01/06/2024 [facility] Comment on above: Ordered: 01/06/2024 Estrone (E1) [Mass/v olume] in Serum or Plasma [facility] Ferritin [Mass/volum e] in Serum or Plasma Ferritin Lab Routine Hormone disorder Ordered: 01/06/2024 [facility] Comment on above: Ordered: 01/06/2024 Hemoglobin A1c measurement Hemog lobin A1c Lab Routine Hormone disorder Ordered: 01/06/2024 [facility] Comment on above: Ordered: 01/06/2024 Human papilloma viru s DNA [Presence] in Unspecified specimen by Probe with amplification HPV DNA probe, amplified Microbiology Routine Well woman exam with routine gynecological exam Ordered: 09/13/2024 [facility] Comment on above: Ordered: 09/13/2024 Insulin [Units/volum e] in Serum or Plasma [facility] Progesterone Progesterone Lab Routine Hormone disorder Ordered: 01/06/2024 [facility] Comment on above: Ordered: 01/06/2024 Progesterone [Mass/v olume] in Serum or Plasma [facility] Serotonin [Mass/volu me] in Plasma [facility] Sex hormone binding globulin Sex hormone binding globulin Lab Routine Hormone disorder Ordered: 01/06/2024 [facility] Comment on above: Ordered: 01/06/2024 T3, reverse T3, reverse Lab Routine Hormone disorder Ordered: 01/06/2024 [facility] Comment on above: Ordered: 01/06/2024 Testosterone Free [Mass/volume] in Serum or Plasma [facility] TESTOSTERONE, FREE TESTOSTERONE, FREE Lab Routine Hormone disorder Ordered: 01/06/2024 [facility] Comment on above: Ordered: 01/06/2024 Testosterone, free, total Testos terone, free, total Lab Routine Hormone disorder Ordered: 01/06/2024 [facility] Comment on above: Ordered: 01/06/2024 Throat culture Throat Culture [facility] Thyroglobulin Ab [Units/volume] in Serum or Plasma [facility] Thyroid peroxidase antibody Thyr oid peroxidase antibody Lab Routine Hormone disorder Ordered: 01/06/2024 [facility] Comment on above: Ordered: 01/06/2024 Thyroperoxidase Ab [Units/volume] in Serum or Plasma [facility] Thyroxine (T4) free [Mass/volume] in Serum or Plasma T4, free Lab Routine Hormone disorder Ordered: 01/06/2024 [facility] Comment on above: Ordered: 01/06/2024 Triiodothyronine (T3 ) Free [Mass/volume] in Serum or Plasma T3, free Lab Routine Hormone disorder Ordered: 01/06/2024 [facility] Comment on above: Ordered: 01/06/2024 Vitamin D 1,25 dihydroxy Vitamin D 1,25 dihydroxy Lab Routine Hormone disorder Ordered: 01/06/2024 [facility] Comment on above: Ordered: 01/06/2024 [facility] Work Phone: Immunizations Immunization Date Immunization Notes Care Provider Fa kaylynn 09-15-2023 influenza, injectabl e, quadrivalent, preservative free [facility] 09-15-2023 influenza virus vaccine, unspecified formulation Le Buckner DO Work Phone: [facility] 09-25-2022 COVID-19 Moderna (BIvalent) Kiya Schaffer Other [facility] 08-23-2021 COVID-19 Pfizer Subha Fitt Other [facility] 07-31-2021 COVID-19 Pfizer Subha Fitt Other [facility] 05-19-2021 diphtheria, tetanus toxoids and pertussis vaccine [facility] Payers Date Payer Category Payer Self-pay [id number] 2022 Private Health Insurance [employer] [id number] 2022 Unknown [employer] [id number] 2022-Present [address] [place] [address] [id number] 1990 Unknown [id number] .593 1990 Unknown [id number] [id number] .593 1990 Unknown [id number] [id number] .9 1990 Unknown [id number] [id number] .1258 1990 Unknown [id number] [id number] .9 1990 Unknown [id number] [id number] .9 1990 Unknown [id number] [id number] .9 1990 Unknown [id number] [id number] .9 1990 Unknown [id number] [id number] .1259 1959 Unknown [id number] [id number] Unknown [id number] [id number] .531 Unknown [id number] .531 Worker's Compensation [facility] Med C t Ind [id number] Social History Date Type Detail Facility Start: 09-07-2023 End: 10-13-2023 Sex Assigned At [facility] Start: 1990 Sex Assigned At Female [facility] Start: 08-13-2023 End: 05-03-2024 Tobacco smoking status NHIS Never smoked tobacco [facility] Start: 01-06-2024 End: 09-13-2024 Alcohol intake Current drinker of alcohol (finding) [facility] Start: 09-07-2023 End: 10-13-2023 History of Social function [facility] How often to you hav e a drink containing alcohol? Monthly or less [facility] Average Number of Drinks Not on file [facility] How often do you hav e 6 or more drinks on 1 occasion? Never [facility] Start: 10-13-2023 Alcohol Comment Caffeine intake: non e [facility] Start: 06-25-2023 Gender identity Identifies as female gender (finding) [facility] Start: 10-18-2024 Sex Female (finding) [facility] Clinical Notes 08-23-2021 to 09-13-2024 Renu Charlton LPN - 09/13/2024 2:00 PM ALEXANDER Abbott - 01/06/2024 2:20 PM EST Note Date & Type Note Facility 09-13-2024 History of Presen t illness Narrative Reason for Appointment: Patient ID: Michelet Reyes is a 34 y.o. female who presents for Well Women Visit Patient presents today for Annual Exam. MEDICATIONS Current Outpatient Medications Medication Instructions fluticasone (Flonase) 50 MCG/ACT nasal spray 1 spray, Daily omeprazole (PRILOSEC) 40 mg, Daily before breakfast MV-Min-Fe Fum-FA-DHA ( 1 PO) 1 tablet, Daily ALLERGIES Allergies Allergen Reactions Amoxicillin Hives Penicillin G Unknown PROBLEMS Active Ambulatory Problems Diagnosis Date Noted No Active Ambulatory Problems Resolved Ambulatory Problems Diagnosis Date Noted No Resolved Ambulatory Problems Past Medical History: Diagnosis Date Fatigue GARTH (generalized anxiety disorder) (CMS/HCC) Hyperlipidemia (CMS/HCC) Paronychia, finger HISTORY PAST MEDICAL HISTORY SOCIAL HISTORY Past Medical History: Diagnosis Date Fatigue GARTH (generalized anxiety disorder) (CMS/HCC) Hyperlipidemia (CMS/HCC) Paronychia, finger Social History Tobacco Use Smoking status: Never Smokeless tobacco: Not on file Substance Use Topics Alcohol use: Yes Comment: Caffeine intake: none Drug use: Not on file FAMILY HISTORY Family History Problem Relation Name Age of Onset Hypertension Father SURGICAL HISTORY Past Surgical History: Procedure Laterality Date PAP SMEAR 06/19/2020 WNL REVIEW OF SYSTEMS Review of Systems: Review of Systems Constitutional: Negative. HENT: Negative. Eyes: Negative. Respiratory: Negative. Cardiovascular: Negative. Gastrointestinal: Negative. Genitourinary: Negative. Musculoskeletal: Negative. Skin: Negative. Neurological: Negative. All other systems reviewed and are negative. Hematological: Negative. Endocrine: Negative. Allergic/Immunologic: Negative. OBJECTIVE Objective: Physical Exam Constitutional: Appearance: Normal appearance. She is well-developed. Genitourinary: Vulva normal. Breasts: Breasts are soft. Right: Normal. Left: Normal. Cardiovascular: Rate and Rhythm: Normal rate and regular rhythm. Pulmonary: Effort: Pulmonary effort is normal. Breath sounds: Normal breath sounds. Abdominal: General: Bowel sounds are normal. There is no distension. Palpations: Abdomen is soft. Tenderness: There is no abdominal tenderness. There is no guarding or rebound. Musculoskeletal: General: No swelling. Normal range of motion. Right lower leg: No edema. Left lower leg: No edema. Neurological: Mental Status: She is alert and oriented to person, place, and time. Skin: General: Skin is warm and dry. Psychiatric: Mood and Affect: Mood normal. Behavior: Behavior normal. Vitals and nursing note reviewed. Exam conducted with a traveling accountant present. Vitals: Estimated body mass index is 28.79 kg/m as calculated from the following: Height as of 01/06/24: 5' 7 . Weight as of this encounter: 183 lb 12.8 oz. BP: 120/70 Patient's last menstrual period was 08/22/2024. ASSESSMENT & PLAN ICD-10-CM 1. Well woman exam with routine gynecological exam Z01.419 Pap Smear HPV DNA probe, amplified Annual Exam: Patient presents today for an annual exam. Patient states she is doing well and has no complaints. Pap was obtained without difficulty. Orders Placed This Encounter Procedures HPV DNA probe, amplified Follow Up: Patient is to return in one year for annual unless needed otherwise. Documented by Renu Charlton LPN on behalf of: Le Buckner DO documented in this encounter [facility] 01-06-2024 History of Presen t illness Narrative Reason for Appointment: Patient ID: Michelet Reyes is a 33 y.o. female who presents for Adipex #5 Patient presents today for Weight Management Consult appointment. Current Medications: has a current medication list which includes the following prescription(s): fluticasone, vitamin, azithromycin, doxycycline, moxifloxacin, and phentermine. Medical History: Active Ambulatory Problems Diagnosis Date Noted No Active Ambulatory Problems Resolved Ambulatory Problems Diagnosis Date Noted No Resolved Ambulatory Problems Past Medical History: Diagnosis Date Fatigue GARTH (generalized anxiety disorder) ([facility]) Hyperlipidemia ([facility]) Paronychia, finger Family History Problem Relation Name Age of Onset Hypertension Father Social History Tobacco Use Smoking status: Never Smokeless tobacco: Not on file Substance Use Topics Alcohol use: Yes Comment: Caffeine intake: none Drug use: Not on file Past Surgical History: Procedure Laterality Date PAP SMEAR 06/19/2020 WNL Allergies Allergen Reactions Amoxicillin Hives Penicillin G Unknown Review of Systems: Review of Systems Constitutional: Negative. HENT: Negative. Eyes: Negative. Respiratory: Negative. Cardiovascular: Negative. Gastrointestinal: Negative. Genitourinary: Negative. Musculoskeletal: Negative. Skin: Negative. Neurological: Negative. All other systems reviewed and are negative. Hematological: Negative. Endocrine: Negative. Allergic/Immunologic: Negative. Objective Physical Exam Constitutional: Appearance: Normal appearance. She is normal weight. HENT: Head: Normocephalic. Cardiovascular: Rate and Rhythm: Normal rate. Pulses: Normal pulses. Pulmonary: Effort: Pulmonary effort is normal. Breath sounds: Normal breath sounds. Abdominal: Palpations: Abdomen is soft. Musculoskeletal: General: Normal range of motion. Neurological: General: No focal deficit present. Mental Status: She is alert and oriented to person, place, and time. Psychiatric: Mood and Affect: Mood normal. Behavior: Behavior normal. Thought Content: Thought content normal. Judgment: Judgment normal. Vitals and nursing note reviewed. Vitals: Estimated body mass index is 28.05 kg/m as calculated from the following: Height as of this encounter: 5' 7 . Weight as of this encounter: 179 lb 1.9 oz. BP: 120/70 Patient's last menstrual period was 12/26/2023. Assessment/Plan Encounter Diagnoses Name Primary? Encounter for weight management Hormone disorder 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 Patient presents today for 5th Adipex prescription. Patient desires additional weigh loss and she is currently taking metformin along with working out to achieve further results. The possibility of Ozempic for future use has been discussed. Weight and blood pressure has been captured and it has been discussed/reiterated the importance of keeping a food journal, proper nutrition/diet, and exercise regimen. Patient verbalized understanding. Patient has lost more than 5% of her initial body weight We discussed hormones and cortisol levels at length. Pt requested more in depth study of hormones and other blood work. We will set pt up with [facility]gen for labs and further assessment. Follow Up: Patient is to return to the office in 1 month for further evaluation to assess patient progress. Weight and blood pressure will need to be obtained in order for patient to receive 4th Adipex prescription. Documented by ALEXANDER Gramajo on behalf of: ALEXANDER Gramajo documented in this encounter [facility] 10-02-2023 Evaluation note Encounter Date Diagnosis Assessment Notes Sep, Wellness examination (ICD-10 - Z00.00) Healthy diet and exercise. Reviewed age-appropriate preventive testing recommended. Sep, Hypercholesteremia (ICD-10 - E78.00) Instructed on diet and exercise.Discusse d the beneficial effects of lowering cholesterol in reducing the risk for cerebrovascular and cardiovascular disease. ASCVD risk < 7.5% Sep, Overweight (ICD-10 - E66.3) This patient has been instructed on a low-fat, high-fiber diet. They are instructed to reduce calories, portion sizes and snacks. It is recommended that they exercise for 30 minutes, 3-5 times weekly. Sep, GARTH (generalized anxiety disorder) (ICD-10 - F41.1) Healthy diet and exercise. No medication due to attempts to conceive Sep, Gastroesophageal reflux disease without esophagitis (ICD-10 - K21.9) Diet instructions: Smaller portions, avoid eating and laying flat, avoid eating or drinking prior to bedtime. Weight loss. Pepcid PRN [facility] Other 2023 Evaluation note* Encounter Date Diagnosis Assessment Notes Treatment Notes Treatment Clinical Notes Dec, Nasal turbinate hypertrophy (ICD-10 - J34.3) FLonase, saline NS, Sudafed and avoid use of Afin. Refer to ENT. Dec, Nonallergic vasomotor rhinitis (ICD-10 - J30.0) Prednisone tapered over 8 days. Claritin as needed. [facility] Other 02-13-2023 Evaluation note* Encounter Date Diagnosis Assessment Notes Treatment Notes Treatment Clinical Notes Dec, Acute non-recurrent maxillary sinusitis (ICD-10 - J01.00) [facility] Other 01-25-2023 Evaluation note* Encounter Date Diagnosis Assessment Notes Treatment Notes Treatment Clinical Notes Nov, Acute non-recurrent maxillary sinusitis (ICD-10 - J01.00) Instructed to use Robitussin or Mucinex for cough, saline or Flonase NS for congestion, Tylenol for pain and fever. [facility] Other 10-28-2022 Evaluation note* Encounter Date Diagnosis Assessment Notes Treatment Notes Treatment Clinical Notes Aug, Sore throat (ICD-10 - J02.9) Aug, Acute tonsillitis, unspecified etiology (ICD-10 - J03.90) testing today in clinic is negative. throat culture obtained, will contact pt with results. will initiate tx for bacterial infection, take rx as directed. continue symptomatic tx c otc meds and salt water gargles prn. push rest/fluids. reinforced good hand hygiene for infection control. advised throw away all reusable oral care products and buy new. immediate eval if warning s/s of intractable fever or pain, dysphagia or s/s of respir distress. otherwise f/u with PCP in 3-4 days if s/s persists or worsens despite tx Aug, Contact with and (suspected) exposure to covid-19 (ICD-10 - Z20.822) [facility] Other 10-27-2022 Evaluation note* Encounter Date Diagnosis Assessment Notes Treatment Notes Treatment Clinical Notes Aug, Encounter for immunization (ICD-10 - Z23) Patient presents today for COVID-19 vaccination booster. Patient pre-vaccination form answers reviewed. Patient denies current illness or allergic reaction to any component of a COVD-19 vaccine. Patient provided with copy of current EUA. [facility] Other 02-02-2022 Evaluation note* Encounter Date Diagnosis Assessment Notes Treatment Notes Treatment Clinical Notes Dec, Encounter for screening for other viral diseases (ICD-10 - Z11.59) Dec, Other Additional time spent conducting pre-visit phone call, screening for symptoms, instructions on social distancing, application and removal of PPE, and cleaning of examination room, equipment and supplies was preformed. Patient education given for testing methodology and results. Patient care instructions given in writting by [facility] document. Additional time spent conducting pre-visit phone call, screening for symptoms, instructions on social distancing, application and removal of PPE, and cleaning of examination room, equipment and supplies was preformed. Patient education given for testing methodology and results. Patient care instructions given in writting by [facility] document. [facility] Other 01-28-2022 Evaluation note* Encounter Date Diagnosis Assessment Notes Treatment Notes Treatment Clinical Notes Nov, Contact with and (suspected) exposure to other viral communicable diseases (ICD-10 - Z20.828) Nov, COVID-19 (ICD-10 - U07.1) Drink plenty fluids, get plenty of rest. Follow the COVID-19 discharge instructions. Take Tylenol Motrin for aches pains or fevers. Follow-up with your family physician if no improvement in 2 to 3 days. Nov, Other Additional time spent conducting pre-visit phone call, screening for symptoms, instructions on social distancing, application and removal of PPE, and cleaning of examination room, equipment and supplies was preformed. Patient education given for testing methodology and results. Patient care instructions given in writting by [facility] document. [facility] Other 09-24-2021 Evaluation note* Encounter Date Diagnosis Assessment Notes Treatment Notes Treatment Clinical Notes Jul, Encounter for immunization (ICD-10 - Z23) Patient presents for COVID-19 vaccination #2. Pre-screening form answers evaluated with patient. Patient denies current illness or allergic reaction to component of COVID-19 vaccine. Patient provided with current copy of EUA. [facility] Other Evaluation noteNo assessment information available [facility] Work Phone: Evaluation noteNo InformationNort [employer] App Other Evaluation note* Diagnosis Encounter for weight management Hormone disorder Unspecified endocrine disorder 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 [facility] Diagnosis Well woman exam with routine gynecological exam Routine gynecological examination documented [facility]* Diagnosis Onset Date Resolution Status Admit Date Hypercholesteremia acute Novemb er 2023 11:13am Wellness examination acute Nove mber 2023 11:13am [facility] Work Phone: [facility]om[facility] general Narrative - Reported* Type Description Date Medical History Child X2 Natural Surgical History No know Surgical history Hospitalization History see above [facility] Other [facility] general Narrative - Reported* Type Description Date Medical History Child X2 Natural Surgical History No Surgical history information Hospitalization History see above [facility] Other [facility] general Narrative - Reported* Type Description Date Medical History Child X2 Natural Medical History Body mass index (BMI) of 25.0 to 29.9 Medical History Fatigue Medical History Hyperlipidemia, group A Medical History GARTH (generalized anxiety disorde r) Surgical History No know Surgical history Hospitalization History No know Hospitalization history [facility] Other Chief Complaint and Reason for Visit Chief Complaint pillars Chief Complaint pillars Sore throat Chief Complaint Pillars Chief Complaint E34.9 Chief Complaint E34.9 Allergy Shot Chief Complaint Allergy Shot swollen tonsils, left ear pain Chief Complaint allergy shot Chief Complaint allergy shot pillars Chief Complaint Admit Date allergy shot August 29, 2024 11:52am pillars September 22, 2024 7 :15am CC Adult Risk Stratification October 142023 9:24am Wellness October 18, 2024 11:13am Reason for Visit Admit Date Hypercholesteremia October 18, 2024 11:13am Wellness examination October 18, 2024 11:13am Advance Directives Advance Directive Response Recorded Date/ Time Advance Directives No July 20, 2018 7:13pm Advance Directive Response Recorded Date/ Time Advance Directives No July 20, 2018 6:13pm Advance Directive Response Recorded Date/ Time Advance Directives No May 03 10:39am Advance Directive Response Recorded Date/ Time Advance Directives No May 03 9:39am Summary Purpose Family History No Family History Records FoundNo Family History Records FoundNo Family History Records Found Reason for Referral Reason 02/04/23 Patient w ith severe B/L nasal obstruction. She completed 2 courses of antibiotics without improvement., Her symptom do not appear to be infectious and have encouraged use of Flonase NS and Sudafed. She was instructed to stop Afrin, though claims only used for 2 days. Diagnosis 1 Nasal turbinate hype rtrophy (J34.3) Referral Organization [facility] Melvin russo Referring Provider First Name Robles Referring Provider Last Name Melvin Referring Provider Specialty Internal Me dicine Referred Organization [facility] Referred Provider Robles Hernandez Referred Address ,[place], [place],[address] Referred Provider Specialty Otolaryngolo gy Referral Priority Routine Referral Appointment Date 2023-02-04 General Notes Rosangela Cruz 09:25:33 AM >received today, notes locked, insurance card attached, referral faxed Rosangela Cruz 01/29/2023 12:42:25 PM >Shannan at Dr. Rodriges office requested referral be faxed again to [phone]. done! Rosangela Cruz 02/05/2023 02:23:23 PM >notes being sent over now Rosangela Cruz 02/10/2023 08:41:31 AM >NOTES RECEIVED AND SENT FOR REVIEW Additional Source Comments REASON FOR VISIT (unrecogniz ed section and content) Reason Comments Adipex #5 Reason Comments Well Women Visit Care Teams (unrecognized sec tion and content) Team Status: Inactive Member Role Status Dates Liz Conteh MD Primary Care Provider Active Delano Francis DO [facility] Attending Provider Active Team Status: Active Member Role Status Dates Liz Conteh MD Primary Care Provider Active Team Status: Inactive Member Role Status Dates Liz Conteh MD Primary Care Provider Active Derick Timmons MD Attending Provider Active Team Status: Inactive Member Role Status Dates Liz Conteh MD Primary Care Provider Active Kiya Schaffer NP Attending Provider Active Team Status: Active Member Role Status Dates Robles Charles DO Primary Care Provider Active Team Status: Inactive Member Role Status Dates ALEXANDER Mesa-C Attending Provider Active Sta rt: January 07, 2024 End: January 07, 2024 Robles Charles DO Primary Care Provider Active Start: January 07, 2024 End: January 07, 2024 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 Relationship Specialty Start Date End Date Robles Charles MD [address] [place] [id number] PCP - General Internal Medicine 07/30/23 Team Status: Inactive Member Role Status Dates Robles Charles DO Primary Care Provide r, Attending Provider Active Start: 2024 End: 2024 Team Status: Inactive Member Role Status Dates Robles Charles DO Primary Care Provider Active Start: May 03, 2024 End: May 03, 2024 Caro Chacon APRN SVP GROUP DIRECTOR-C Attending Provider Act alex Start: May 03, 2024 End: May 03, 2024 Team Status: Inactive Member Role Status Dates Robles Charles DO Primary Care Provide r, Attending Provider Active Start: August 29, 2024 End: August 29, 2024 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 Relationship Specialty Start Date End Date Robles Charles MD [address] [place] [id number] PCP - General Internal Medicine 07/30/23 Deisy Haji PA [address] [place] [address] [address] [place], [place] [id number] PCP - Medical [place] [employer] 11/30/23 11/29/99 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 Relationship Specialty [place] [address] [place] [phone] PCP - General Internal Medicine 07/30/23 Deisy Haji PA [address] [facility] [place] [address] PCP - Medical [place] [facility] 11/30/23 11/29/99 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 Relationship Specialty [place] [address] [place] [phone] PCP - General Internal Medicine 07/30/23 Deisy Haji PA [address] [facility] [place] [address] PCP - Medical [place] [employer] 11/30/23 11/29/99 Team Status: Inactive Member Role Status Dates Robles Charles DO Primary Care Provider Active Start: September 22, 2024 End: September 22, 2024 Delano MEZA , [facility] Attending Provider Active Start: September 22, 2024 End: September 22, 2024 Team Status: Active Member Role Status Dates Robles Charles DO Primary Care Provide r, Attending Provider Active Start: October 14, 2024 Team Status: Inactive Member Role Status Dates Robles Charles DO Primary Care Provide r, Attending Provider Active Start: October 18, 2024 End: October 18, 2024 Goals (unrecognized section and content) Goals may be documented in a n alternate section INFORMATION SOURCE (unrecogn ized section and content) DATE CREATED AUTHOR 09/02/2022 [facility] DATE CREATED AUTHOR AUTHOR'S ORGANIZ ATION 09/15/2024 [facility] EPIC DATE CREATED AUTHOR AUTHOR'S ORGANIZ ATION 09/23/2024 [facility] FOR RECORDS PERTAINING TO PATIENTS WHO ARE OR HAVE BEEN ENROLLED IN A CHEMICAL DEPENDENCY/SUBSTANCEABUSE PROGRAM, SOME INFORMATION MAY BE OMITTED. This clinical summary was aggregated from multiple sources. Caution should be exercised in using it in the provision of clinical care. This summary normalizes information from multiple sources, and as a consequence, information in this document may materially change the coding, format and clinical context of patient data. In addition, data may be omitted in some cases. CLINICAL DECISIONS SHOULD BE BASED ON THE PRIMARY CLINICAL RECORDS. [facility] provides no warranty or guarantee of the accuracy or completeness of information in this document.
[2024-12-10 09:38] LABS: HCG Quantitative 18360 mIU/mL
[2024-12-12 10:46] LABS: HCG Quantitative 28944 mIU/mL
== END 2024-12-30 12:37 | disposition home or self-care (01) ==
LOC: LAB 08:15
PROVIDERS: PCP Internal Medicine; Visit Provider Obstetrics & Gynecology
DX: Z32.01 Encounter for pregnancy test, result positive (principal); Z87.59 Personal history of other complications of pregnancy, childbirth and the puerperium
CPT/HCPCS: 36415; 84702

== ENCOUNTER 2025-01-13 10:03 | Outpatient (OUT) | payer OTHER, SELFPAY ==
--- OUTSIDE RECORDS SUMMARY | 2025-01-13 10:10 | XMS_ITS | CCD ---
Author Organization [facility] CliniSysd Care Team Providers Care Assistant Project Manager Name Role Phone Subha Dillon Unavailable Elsi Mayer Unavailable MD Liz Conteh Primary Care Provider DO Delano Francis Attending Provider [phone] SITA, DR LUJAN Consulting Unavailable SITA, DR LUJAN Admitting Unavailable REQUEST, NONE LISTED Primary Care Unavaila jt BUCKNER, DR LUJAN Attending Unavailable NELA, DR SEARS Attending Unavailable NELA, DR SEARS Consulting Unavailable NELA, DR SEARS Admitting Unavailable REQUEST, NONE LISTED Primary Care Unavaila Kiya Gonsalves Unavailable MD Derick Timmons Attending Provider SHANNON Schaffer Attending Provider Robles Charles Unavailable MD Liz Conteh Primary Care Provider DO Delano Francis Attending Provider [phone] QUANG Villar Attending Provider DO Robles Charles Primary Care Provider Robles Charles MD Primary Care Provider QUANG Villar Attending Provider [phone] DO Robles Charles Primary Care Provider Deisy Pratt Unavailable DO Robles Charles Primary Care Provider Tito - [facility], DO Delano Gonzalez [facility] Un[facility] Robles Charles [facility] Unavailable Deisy Villar Admitting Unavailable Deisy Villar Attending Unavailable Robles Charles Primary [facility] Unavailable Robles Charles DO Primary Care Provider [phone] [facility] Delano CRESPO Attending Provider DEISY VILLAR Attending Unavailable DEISY VILLAR Attending Unavailable ÁNGEL BUCKNER Attending Unavailable Allergies Allergy Classification Reported Allergen(s) Allergy Type Date of Onset Reaction(s) Facility (5 sources) Penicillin V Drug Allergy rash [facility] Other (1 source) Amoxicillin Drug Allergy 0 [facility] Repository (1 source) Penicillins Drug allergy (disorder) [facility]ository (5 sources) Penicillin Drug Allergy [facility] Other (1 source) Substance with penicillin structure and antibacterial mechanism of action (substance) Drug allergy 3 [facility] Other (7 sources) Amoxicillin Drug Allergy 3 [facility] (7 sources) Penicillin G Drug Allergy 3 [facility] (1 source) Penicillins Drug allergy (disorder) 4 [facility] Medications Current Medications Medication Drug [...] daily for 7 days Nov, Not-Taking fluticasone (11 sources) Corticosteroid Start: 01-22-2023 take 1-2 spray(s) [...] omeprazole 40 mg delayed release oral capsule (15 sources) Proton Pump Inhibitor Start: 08-16-2024 take 1 capsule by mouth once daily at breakfast Omeprazole 40 mg capsule,delayed release(DR/EC) Active 0 .ROUTE .COMPLEX 90 August 16, 2024 4:42pm TAKE 1 CAPSULE BY MOUTH ONCE DAILY on an empty stomach 30 MINUTES prior TO breakfast Start: 02-22-2024 End: 08-16-2024 take 1 capsule by mouth before mealtime omeprazole (PriLOSEC) [address] capsule Take 40 mg by mouth in the morning. Take before meals. 02/22/2024 Active End: 01-06-2024 Omeprazole Magnesium (PriLOS EC) 2.5 MG pack PriLOSEC 0 01/06/2024 Discontinued Pre-Mack (10 sources) Pre- Not-Ta flakita Pre- Active MV-Min-Fe Fum-FA-DH A ( 1 PO) (5 sources) MV-Min- Fe Fum-FA-DHA ( 1 PO) Take 1 tablet by mouth Daily Active Vit-Fe Fumarate-FA ( Vitamin) 27-0.8 MG tablet (1 source) Vit-Fe Fumarate-FA ( Vitamin) 27-0.8 MG tablet Vitamin 0 Active Progesterone 200 MG supposit ory (2 sources) Start: 12-09-2024 End: 01-08-2025 Progesterone 200 MG supposit ory Indications: History of miscarriage Insert 200 mg into the vagina at bedtime Insert suppository vaginally every night at bedtime until 12 weeks gestation 30 suppository 12/09/2024 01/08/2025 Active Completed/Discontinued Medications Medication Drug Class(es) Dates [...] Start: 09-26-2022 take 1 tablet by brandon every twenty-four hours Zithromax 500 MG 1 [...] Test Name Value Interpretation Reference Range Facility US OB TRANSVAGINALon 025 US OB TRANSVAGINAL EXAM: US OB TRANSVAG INAL HISTORY: Dating. COMPARISON: None available. TECHNIQUE: Two-dimensional transvaginal grayscale ultrasound imaging of the pelvis was performed. Color Doppler evaluation of the ovaries was also performed. FINDINGS: The uterus demonstrates a normal homogeneous echotexture. The cervix measures 4.3 cm in length. The cervical os is closed. The right ovary measures 3.6 x 2.5 x 3.3 cm and demonstrates a normal echotexture. There is normal color Doppler flow. There is a dominant follicle visualized. The left ovary measures 2.6 x 1.3 x 2.0 cm and demonstrates a normal echotexture. There is normal color Doppler flow. No fluid is present within the cul-de-sac. There is a single, live intrauterine gestation identified with a heart rate of 163 beats per minute and a crown-rump length measurement of 2.7 cm, correlating to a gestational age of 9 weeks 4 days (+/- 6 days). There is no subchorionic hemorrhage visualized. A yolk sac is visualized. IMPRESSION: 1. Single, live intrauterine gestation 9 weeks, 1 days by LMP. Today's ultrasound measurements correlate with a gestational age of 9 weeks 4 days (+/- 6 days). EDIE by today's ultrasound is 08/06/2025. 2. Normal color Doppler evaluation of the bilateral ovaries. Electronically Signed:Electronically signed by EVELYNE SAMUEL II, MD, PHD at 09-Jan-2025 09:10:54 AM [facility] Normal Not Available Comment on above: Order Comment: US OB TRANSVAGINAL No LMP recorded. [facility] PREG QUANT HCGon 025 HCG QUANTITATIVE 16958 mIU/mL [facility] Comment on above: 5-50 0.2-1 WEEK 50-500 1-2 WEEKS 100-5,000 2-3 WEEKS 500-10,000 3-4 WEEKS 1,000-50,000 4-5 WEEKS 10,000-100,000 5-6 WEEKS 15,000-200,000 6-8 WEEKS 10,000-100,000 2[facility] HCG QUANTITATIVE 38905 mIU/mL [facility] Comment on above: 5-50 0.2-1 WEEK 50-500 1-2 WEEKS 100-5,000 2-3 WEEKS 500-10,000 3-4 WEEKS 1,000-50,000 4-5 WEEKS 10,000-100,000 5-6 WEEKS 15,000-200,000 6-8 WEEKS 10,000-100,000 2-3 MONTHS [facility] Automated basophil %Ordered By: Delano Francis on 09-22-2024 Basophils/100 WBC (Bld) 0.6 % Normal . [facility] Comment on above: Performed By: #### D VENITA, LC T4, [id number], SEROTON, TEST F + T, T3R, THYGLOB AB, ESTRADIOL, TPO, SHBG, ESTRONE, INSULIN, PROG #### [facility] , #### T4F, TRISTEN, TSH3, A1C WTH eA, FILIBERTO, GLU, T3F #### [address] Automated basophil countOrde red By: Delano Francis on 09-22-2024 Basophils (Bld) [#/Vol] 0.0 10*3/uL Normal 0.0-0.2 [facility] Comment on above: Result Comment: PERF ORMED BY: [place] [address] PATHOLOGIST PRICING LEAD JOSE GOEL M.D. Performed By: #### D HEAS, LC T4, [id number], SEROTON, TEST F + T, T3R, THYGLOB AB, ESTRADIOL, TPO, SHBG, ESTRONE, INSULIN, PROG #### [facility] , #### T4F, TRISTEN, TSH3, A1C WTH eA, FILIBERTO, GLU, T3F #### [address] Automated blood monocyte cou ntOrdered By: Delano Francis on 09-22-2024 Monocytes (Bld) [#/Vol] 0.4 10*3/uL Normal 0.0-0.8 [facility] Comment on above: Performed By: #### D HEAS, LC T4, [id number], SEROTON, TEST F + T, T3R, THYGLOB AB, ESTRADIOL, TPO, SHBG, ESTRONE, INSULIN, PROG #### [facility] , #### T4F, TRISTEN, TSH3, A1C WTH eA, FILIBERTO, GLU, T3F #### [address] Automated eosinophil %Ordere d By: Delano Francis on 09-22-2024 Eosinophils/100 WBC (Bld) 1.7 % Normal . [facility] Comment on above: Performed By: #### D HEAS, LC T4, [id number], SEROTON, TEST F + T, T3R, THYGLOB AB, ESTRADIOL, TPO, SHBG, ESTRONE, INSULIN, PROG #### [facility] , #### T4F, TRISTEN, TSH3, A1C WTH eA, FILIBERTO, GLU, T3F #### [address] Automated eosinophil countOr dered By: Delano Francis on 09-22-2024 Eosinophils (Bld) [#/Vol] 0.1 10*3/uL Normal 0.0-0.45 [facility] Comment on above: Performed By: #### D HEAS, LC T4, [id number], SEROTON, TEST F + T, T3R, THYGLOB AB, ESTRADIOL, TPO, SHBG, ESTRONE, INSULIN, PROG #### [facility] , #### T4F, TRISTEN, TSH3, A1C WTH eA, FILIBERTO, GLU, T3F #### [facility] [address] Automated monocyte %Ordered By: Delano Francis on 09-22-2024 Monocytes/100 WBC (Bld) 8.7 % Normal . [facility] Comment on above: Performed By: #### D HEAS, LC T4, [id number], SEROTON, TEST F + T, T3R, THYGLOB AB, ESTRADIOL, TPO, SHBG, ESTRONE, INSULIN, PROG #### [facility] , #### T4F, TRISTEN, TSH3, A1C WTH eA, FILIBERTO, GLU, T3F #### [facility] [address] [place] [address] Automated neutrophil %Ordere d By: Delano Francis on 09-22-2024 Neutrophils/100 WBC (Bld) 63.7 % Normal . [facility] Comment on above: Performed By: #### D HEAS, LC T4, [id number], SEROTON, TEST F + T, T3R, THYGLOB AB, ESTRADIOL, TPO, SHBG, ESTRONE, INSULIN, PROG #### [facility] , #### T4F, TRISTEN, TSH3, A1C WTH eA, FILIBERTO, GLU, T3F #### [facility] [address] [place] [address] Basophils Auto (Bld) [#/Vol] Ordered By: Delano Francis on 09-22-2024 Basophils (Bld) [#/Vol] Automated basophil count 0.0-0.2 [facility] Basophils/100 WBC Auto (Bld) Ordered By: Delano Francis on 09-22-2024 Basophils/100 WBC (Bld) Automated basophil % . [facility] Calcium [Mass/volume] in Ser um or PlasmaOrdered By: Delano Francis on 09-22-2024 Calcium [Mass/Vol] 9.4 mg/dL Normal 8.6-10.3 [facility] Comment on above: Performed By: #### D HEAS, LC T4, [id number], SEROTON, TEST F + T, T3R, THYGLOB AB, ESTRADIOL, TPO, SHBG, ESTRONE, INSULIN, PROG #### [facility] , #### T4F, TRISTEN, TSH3, A1C WTH eA, FILIBERTO, GLU, T3F #### [facility] [address] Calcium [Mass/Vol] Calcium [Mass/volume ] in Serum or Plasma 8.6-10.3 [facility] Carbon dioxide, total [Moles /volume] in Serum or PlasmaOrdered By: Delano Francis on 09-22-2024 CO2 [Moles/Vol] 29.2 mmol/L Normal 21.0-31.0 [facility] Comment on above: Performed By: #### D HEAS, LC T4, [id number], SEROTON, TEST F + T, T3R, THYGLOB AB, ESTRADIOL, TPO, SHBG, ESTRONE, INSULIN, PROG #### [facility] , #### T4F, TRISTEN, TSH3, A1C WTH eA, FILIBERTO, GLU, T3F #### [facility] [address] [place] [address] CO2 [Moles/Vol] Carbon dioxide, tota l [Moles/volume] in Serum or Plasma 21.0-31.0 [facility] Chloride [Moles/volume] in S stevo or PlasmaOrdered By: Delano Francis on 09-22-2024 Chloride [Moles/Vol] 105 mmol/L Normal 98-107 [facility] Comment on above: Performed By: #### D HEAS, LC T4, [id number], SEROTON, TEST F + T, T3R, THYGLOB AB, ESTRADIOL, TPO, SHBG, ESTRONE, INSULIN, PROG #### [facility] , #### T4F, TRISTEN, TSH3, A1C WTH eA, FILIBERTO, GLU, T3F #### [facility] [address] [place] [address] [place] Chloride [Moles/Vol] Chloride [Moles/vol ume] in Serum or Plasma 98-107 [facility] Cholesterol [Mass/volume] in Serum or PlasmaOrdered By: Delano Francis on 09-22-2024 Cholesterol [Mass/Vol] 217 mg/dL High 140-200 [facility] Comment on above: Chol less than 200 m g/dl low riskChol 201-239 mg/dl borderline riskChol 240 mg/dl and greater high risk Result Comment: Chol less than 200 mg/dl low risk Chol 201-239 mg/dl borderline risk Chol 240 mg/dl and greater high risk Performed By: #### D HEAS, LC T4, [id number], SEROTON, TEST F + T, T3R, THYGLOB AB, ESTRADIOL, TPO, SHBG, ESTRONE, INSULIN, PROG #### [facility] , #### T4F, TRISTEN, TSH3, A1C WTH eA, FILIBERTO, GLU, T3F #### [facility] [address] Cholesterol [Mass/Vol] Cholesterol [Mass/volume] in Serum or Plasma High 140-200 [facility] Comment on above: Chol less than 200 m g/dl low riskChol 201-239 mg/dl borderline riskChol 240 mg/dl and greater high risk Cholesterol in HDL [Mass/vol ume] in Serum or PlasmaOrdered By: Delano Francis on 09-22-2024 Cholesterol in HDL [Mass/Vol] Serum or plasma high density lipoprotein (HDL) cholesterol measurement 23-92 [facility] Comment on above: HDL CHOL ATP-III CLA SSIFICATION Cardiovascular RiskHDL > or equal to 60 mg/dL LOWHDL < 40 mg/dL HIGH Cholesterol in LDL Calc [Mas s/Vol]Ordered By: Delano Francis on 09-22-2024 Cholesterol in LDL [Mass/Vol] 148 mg/dL High 0-100 [facility] Comment on above: LDL ATP III CLASSIFI CATIONLDL less than 100 mg/dL OptimalLDL 100-129 mg/dL Near or above optimalLDL 130-159 mg/dL Borderline highLDL 160-189 mg/dL HighLDL greater than 189 mg/dL Very high Cholesterol in LDL [Mass/Vol] Cholesterol in LDL [Mass/volume] in Serum or Plasma by calculation High 0-100 [facility] Comment on above: LDL ATP III CLASSIFI CATIONLDL less than 100 mg/dL OptimalLDL 100-129 mg/dL Near or above optimalLDL 130-159 mg/dL Borderline highLDL 160-189 mg/dL HighLDL greater than 189 mg/dL Very high Cholesterol in VLDL Calc [Ma ss/Vol]Ordered By: Delano Francis on 09-22-2024 Cholesterol in VLDL [Mass/Vol] 10 mg/dL [facility] Cholesterol in VLDL [Mass/Vol] Cholesterol in VLDL [Mass/volume] in Serum or Plasma by calculation [facility] Creatinine [Mass/volume] in Serum or PlasmaOrdered By: Delano Francis on 09-22-2024 Creatinine [Mass/Vol] 0.73 mg/dL Normal 0.60-1.20 [facility] Comment on above: Performed By: #### D VENITA, LC T4, [id number], SEROTON, TEST F + T, T3R, THYGLOB AB, ESTRADIOL, TPO, SHBG, ESTRONE, INSULIN, PROG #### [facility] , #### T4F, TRISTEN, TSH3, A1C WTH eA, FILIEBRTO, GLU, T3F #### [facility] [address] Creatinine [Mass/Vol] Creatinine [Mass/v olume] in Serum or Plasma 0.60-1.20 [facility] Employee Basic Metabolic [place] 09-22-2024 GFR/1.73 sq M.predicted MDRD (S/P/Bld) [Vol rate/Area] mL/min/{1.73_m2} Normal [facility] Comment on above: Performed By: #### D HEAS, LC T4, [id number], SEROTON, TEST F + T, T3R, THYGLOB AB, ESTRADIOL, TPO, SHBG, ESTRONE, INSULIN, PROG #### [facility] , #### T4F, TRISTEN, TSH3, A1C WTH eA, FILIBERTO, GLU, T3F #### [facility] [address] [place] [address] [place] Employee Complete Blood Coun ton 09-22-2024 Mean Corpuscular HGB Conc 34.2 g/dL Normal 32.0-35.0 [facility] Comment on above: Performed By: #### D HEAS, LC T4, [id number], SEROTON, TEST F + T, T3R, THYGLOB AB, ESTRADIOL, TPO, SHBG, ESTRONE, INSULIN, PROG #### [facility] , #### T4F, TRISTEN, TSH3, A1C WTH eA, FILIBERTO, GLU, T3F #### [facility] [address] NRBC% 0.0 /100{WBC} Normal 0-0.5 [facility] Comment on above: Performed By: #### D HEAS, LC T4, [id number], SEROTON, TEST F + T, T3R, THYGLOB AB, ESTRADIOL, TPO, SHBG, ESTRONE, INSULIN, PROG #### [facility] , #### T4F, TRISTEN, TSH3, A1C WTH eA, FILIBERTO, GLU, T3F #### [facility] [address] Employee Lipid Profileon LDL Cholesterol,Calculated 148 mg/dL High 0-100 [facility] Comment on above: Result Comment: LDL ATP III CLASSIFICATION LDL less than 100 mg/dL Optimal LDL 100-129 mg/dL Near or above optimal LDL 130-159 mg/dL Borderline high LDL 160-189 mg/dL High LDL greater than 189 mg/dL Very high Performed By: #### D HEAS, LC T4, [id number], SEROTON, TEST F + T, T3R, THYGLOB AB, ESTRADIOL, TPO, SHBG, ESTRONE, INSULIN, PROG #### [facility] , #### T4F, TRISTEN, TSH3, A1C WTH eA, FILIBERTO, GLU, T3F #### [facility] [address] Triglyceride w/Reflex 52 mg/dL Normal 0-149 [facility] Comment on above: Result Comment: TRIG ATP III CLASSIFICATION TRIG less than 150 mg/dL Normal TRIG 150-199 mg/dL Borderline high TRIG 200-500 mg/dL High TRIG greater than 500 mg/dL Very high Standard traceable to the Center for Disease Conrtrol and Prevention (CDC) test method. Performed By: #### D HEAS, LC T4, [id number], SEROTON, TEST F + T, T3R, THYGLOB AB, ESTRADIOL, TPO, SHBG, ESTRONE, INSULIN, PROG #### [facility] , #### T4F, TRISTEN, TSH3, A1C WTH eA, FLIIBERTO, GLU, T3F #### [address] VLDL CHOLESTEROL 10 mg/dL Normal [facility] Comment on above: Performed By: #### D HEAS, LC T4, [id number], SEROTON, TEST F + T, T3R, THYGLOB AB, ESTRADIOL, TPO, SHBG, ESTRONE, INSULIN, PROG #### [facility] , #### T4F, TRISTEN, TSH3, A1C WTH eA, FILIBERTO, GLU, T3F #### [address] Employee Thyroid Stim [place] 09-22-2024 Employee Thyroid Stim [place] 2.30 u[iU]/mL Normal 0.45-5.33 [facility] Comment on above: Result Comment: PERF ORMED BY: [place] [address] PATHOLOGIST PRICING LEAD JOSE GOEL M.D. Performed By: #### D HEAS, LC T4, [id number], SEROTON, TEST F + T, T3R, THYGLOB AB, ESTRADIOL, TPO, SHBG, ESTRONE, INSULIN, PROG #### [facility] , #### T4F, TRISTEN, TSH3, A1C WTH eA, FILIBERTO, GLU, T3F #### [address] Eosinophils Auto (Bld) [#/Vo l]Ordered By: Delano Francis on 09-22-2024 Eosinophils (Bld) [#/Vol] Automated eosinophil count 0.0-0.45 [facility] Eosinophils/100 WBC Auto (Bl d)Ordered By: Delano Francis on 09-22-2024 Eosinophils/100 WBC (Bld) Automated eosinophil % . [facility] Erythrocyte distribution wid th Auto (RBC) [Ratio]Ordered By: Delano Francis on 09-22-2024 Erythrocyte distribution width (RBC) [Ratio] Erythrocyte distribution width [Ratio] by Automated count 11.9-15.3 [facility] Erythrocyte distribution wid th [Ratio] by Automated countOrdered By: Delano Francis on 09-22-2024 Erythrocyte distribution width (RBC) [Ratio] 13.2 % Normal 11.9-15.3 [facility] Comment on above: Performed By: #### D VENITA, LC T4, [id number], SEROTON, TEST F + T, T3R, THYGLOB AB, ESTRADIOL, TPO, SHBG, ESTRONE, INSULIN, PROG #### [facility] , #### T4F, TRISTEN, TSH3, A1C WTH eA, FILIBERTO, GLU, T3F #### [facility] [address] [place] [address] [place] Erythrocytes [#/volume] in B lood by Automated countOrdered By: Delano Francis on 09-22-2024 RBC (Bld) [#/Vol] 3.91 10*6/uL Normal 3.60-5.[address] [facility] Comment on above: Performed By: #### D DANIELLEAS, LC T4, [id number], SEROTON, TEST F + T, T3R, THYGLOB AB, ESTRADIOL, TPO, SHBG, ESTRONE, INSULIN, PROG #### [facility] , #### T4F, TRISTEN, TSH3, A1C WTH eA, FILIBERTO, GLU, T3F #### [facility] [address] [place] [id number] [place] Glucose [Mass/volume] in Ser um or PlasmaOrdered By: Delano Francis on 09-22-2024 Glucose [Mass/Vol] 83 mg/dL Normal 70-100 [facility] Comment on above: Performed By: #### D HEAS, LC T4, [id number], SEROTON, TEST F + T, T3R, THYGLOB AB, ESTRADIOL, TPO, SHBG, ESTRONE, INSULIN, PROG #### [facility] , #### T4F, TRISTEN, TSH3, A1C WTH eA, FILIBERTO, GLU, T3F #### [facility] [address] Glucose [Mass/Vol] Glucose [Mass/volume ] in Serum or Plasma 70-100 [facility] Hematocrit Auto (Bld) [Volum e fraction]Ordered By: Delano Francis on 09-22-2024 Hematocrit (Bld) [Volume fraction] Hematocrit [Volume Fraction] of Blood by Automated count 34.0-46.4 [facility] Hematocrit [Volume Fraction] of Blood by Automated countOrdered By: Delano Francis on 09-22-2024 Hematocrit (Bld) [Volume fraction] 35.9 % Normal 34.0-46.4 [facility] Comment on above: Performed By: #### D VENITA, LC T4, [id number], SEROTON, TEST F + T, T3R, THYGLOB AB, ESTRADIOL, TPO, SHBG, ESTRONE, INSULIN, PROG #### [facility] , #### T4F, TRISTEN, TSH3, A1C WTH eA, FILIBERTO, GLU, T3F #### [facility] [address] [place] [address] Hemoglobin [Mass/volume] in BloodOrdered By: Delano Francis on 09-22-2024 Hemoglobin (Bld) [Mass/Vol] 12.3 g/dL Normal 11.8-15.4 [facility] Comment on above: Performed By: #### D HEAS, LC T4, [id number], SEROTON, TEST F + T, T3R, THYGLOB AB, ESTRADIOL, TPO, SHBG, ESTRONE, INSULIN, PROG #### [facility] , #### T4F, TRISTEN, TSH3, A1C WTH eA, FILIBERTO, GLU, T3F #### [facility] [address] Hemoglobin (Bld) [Mass/Vol] Hemoglobin [Mass/volume] in Blood 11.8-15.4 [facility] Leukocytes [#/volume] correc calvin for nucleated erythrocytes in Blood by Automated counOrdered By: Delano Francis on 09-22-2024 WBC corrected for nucl RBC Auto (Bld) [#/Vol] 5.1 10*3/uL 3.8-11.6 [facility] WBC corrected for nucl RBC Auto (Bld) [#/Vol] Leukocytes [#/volume] corrected for nucleated erythrocytes in Blood by Automated coun 3.8-11.6 [facility] Leukocytes [#/volume] in Blo od by Automated countOrdered By: Delano Francis on 09-22-2024 WBC (Bld) [#/Vol] 5.1 10*3/uL Normal 3.8-11.6 [facility] Comment on above: Performed By: #### D VENITA, LC T4, [id number], SEROTON, TEST F + T, T3R, THYGLOB AB, ESTRADIOL, TPO, SHBG, ESTRONE, INSULIN, PROG #### [facility] , #### T4F, TRISTEN, TSH3, A1C WTH eA, FILIBERTO, GLU, T3F #### [facility] [address] Lymphocytes Auto (Bld) [#/Vo l]Ordered By: Delano Francis on 09-22-2024 Lymphocytes (Bld) [#/Vol] Lymphocytes [#/volume] in Blood by Automated count .00-.8 [facility] Lymphocytes [#/volume] in Bl ood by Automated countOrdered By: Delano Francis on 09-22-2024 Lymphocytes (Bld) [#/Vol] 1.3 10*3/uL Normal 1.00-4.8 [facility] Comment on above: Performed By: #### D DANIELLEAS, LC T4, [id number], SEROTON, TEST F + T, T3R, THYGLOB AB, ESTRADIOL, TPO, SHBG, ESTRONE, INSULIN, PROG #### [facility] , #### T4F, TRISTEN, TSH3, A1C WTH eA, FILIBERTO, GLU, T3F #### [facility] [address] [place] [address] Lymphocytes/100 WBC Auto (Bl d)Ordered By: Delano Francis on 09-22-2024 Lymphocytes/100 WBC (Bld) Lymphocytes/100 leukocytes in Blood by Automated count . [facility] Lymphocytes/100 leukocytes i n Blood by Automated countOrdered By: Delano Francis on 09-22-2024 Lymphocytes/100 WBC (Bld) 25.3 % Normal . [facility] Comment on above: Performed By: #### D HEAS, LC T4, [id number], SEROTON, TEST F + T, T3R, THYGLOB AB, ESTRADIOL, TPO, SHBG, ESTRONE, INSULIN, PROG #### [facility] , #### T4F, TRISTEN, TSH3, A1C WTH eA, FILIBERTO, GLU, T3F #### [address] [facility] Auto (RBC) [Entitic mass ]Ordered By: Delano Francis on 09-22-2024 MCH (RBC) [Entitic mass] MCH [Entitic mass] by Automated count 24.7-34.3 [facility] MCH [Entitic mass] by Automa calvin countOrdered By: Delano Francis on 09-22-2024 MCH (RBC) [Entitic mass] 31.4 pg Normal 24.7-34.3 [facility] Comment on above: Performed By: #### D HEAS, LC T4, [id number], SEROTON, TEST F + T, T3R, THYGLOB AB, ESTRADIOL, TPO, SHBG, ESTRONE, INSULIN, PROG #### [facility] , #### T4F, TRISTEN, TSH3, A1C WTH eA, FILIBERTO, GLU, T3F #### [address] [facility]C Auto (RBC) [Mass/Vol]Or dered By: Delano Francis on 09-22-2024 MCHC (RBC) [Mass/Vol] 34.2 g/dL 32.0-35.0 [facility] MCHC (RBC) [Mass/Vol] MCHC [Mass/volume] by Automated count 32.0-35.0 [facility] MCV Auto (RBC) [Entitic vol] Ordered By: Delano Francis on 09-22-2024 MCV (RBC) [Entitic vol] MCV [Entitic vol ume] by Automated count 80-100 [facility] MCV [Entitic volume] by Auto mated countOrdered By: Delano Francis on 09-22-2024 MCV (RBC) [Entitic vol] 91.7 fL Normal 80-100 [facility] Comment on above: Performed By: #### D VENITA, JOSSE T4, [id number], SEROTON, TEST F + T, T3R, THYGLOB AB, ESTRADIOL, TPO, SHBG, ESTRONE, INSULIN, PROG #### [facility] , #### T4F, TRISTEN, TSH3, A1C WTH eA, FILIBERTO, GLU, T3F #### [facility] [address] Monocytes Auto (Bld) [#/Vol] Ordered By: Delano Francis on 09-22-2024 Monocytes (Bld) [#/Vol] Automated blood monocyte count 0.0-0.8 [facility] Monocytes/100 WBC Auto (Bld) Ordered By: Delano Francis on 09-22-2024 Monocytes/100 WBC (Bld) Automated monocyte % . [facility] Neutrophils Auto (Bld) [#/Vo l]Ordered By: Delano Francis on 09-22-2024 Neutrophils (Bld) [#/Vol] Neutrophils [#/volume] in Blood by Automated count 1.8-7.7 [facility] Neutrophils [#/volume] in Bl ood by Automated countOrdered By: Delano Francis on 09-22-2024 Neutrophils (Bld) [#/Vol] 3.2 10*3/uL Normal 1.8-7.7 [facility] Comment on above: Performed By: #### D VENITA, JOSSE T4, [id number], SEROTON, TEST F + T, T3R, THYGLOB AB, ESTRADIOL, TPO, SHBG, ESTRONE, INSULIN, PROG #### [facility] , #### T4F, TRISTEN, TSH3, A1C WTH eA, FILIBERTO, GLU, T3F #### [facility] [address] [place] [address] [place] Neutrophils/100 WBC Auto (Bl d)Ordered By: Delano Francis on 09-22-2024 Neutrophils/100 WBC (Bld) Automated neutrophil % . [facility] No Panel InformationOrdered By: Delano Francis on 09-22-2024 Estimated GFR (CKD-EPI) > 60.0 mL/Min [facility] Creatinine Clearance (Chem N/A [facility] Nucleated erythrocytes [Pres ence] in Blood by Automated countOrdered By: Delano Francis on 09-22-2024 Nucleated RBC Auto Ql (Bld) 0.0 /100{WBC} 0-0.5 [facility] Nucleated RBC Auto Ql (Bld) Nucleated erythrocytes [Presence] in Blood by Automated count 0-0.5 [facility] Platelet mean volume Auto (B ld) [Entitic vol]Ordered By: Delano Francis on 09-22-2024 Platelet mean volume (Bld) [Entitic vol] Platelet mean volume [Entitic volume] in Blood by Automated count 6.3-10.7 [facility] Platelet mean volume [Entiti c volume] in Blood by Automated countOrdered By: Delano Francis on 09-22-2024 Platelet mean volume (Bld) [Entitic vol] 7.3 fL Normal 6.3-10.7 [facility] Comment on above: Performed By: #### D HEAS, LC T4, [id number], SEROTON, TEST F + T, T3R, THYGLOB AB, ESTRADIOL, TPO, SHBG, ESTRONE, INSULIN, PROG #### [facility] , #### T4F, TRISTEN, TSH3, A1C WTH eA, FILIBERTO, GLU, T3F #### [facility] [address] [place] [address] [place] Platelets Auto (Bld) [#/Vol] Ordered By: Delano Francis on 09-22-2024 Platelets (Bld) [#/Vol] Platelets [#/vol ume] in Blood by Automated count 150-450 [facility] Platelets [#/volume] in Bloo d by Automated countOrdered By: Delano Francis on 09-22-2024 Platelets (Bld) [#/Vol] 328 10*3/uL Normal 150-450 [facility] Comment on above: Performed By: #### D HEAS, LC T4, [id number], SEROTON, TEST F + T, T3R, THYGLOB AB, ESTRADIOL, TPO, SHBG, ESTRONE, INSULIN, PROG #### [facility] , #### T4F, TRISTEN, TSH3, A1C WTH eA, FILIBERTO, GLU, T3F #### [facility] [address] [place] [address] [place] Potassium [Moles/volume] in Serum or PlasmaOrdered By: Delano Francis on 09-22-2024 Potassium [Moles/Vol] 4.5 mmol/L Normal 3.5-5.1 [facility] Comment on above: Performed By: #### D HEAS, LC T4, [id number], SEROTON, TEST F + T, T3R, THYGLOB AB, ESTRADIOL, TPO, SHBG, ESTRONE, INSULIN, PROG #### [facility] , #### T4F, TRISTEN, TSH3, A1C WTH eA, FILIBERTO, GLU, T3F #### [facility] [address] [place] [address] [place] Potassium [Moles/Vol] Potassium [Moles/v olume] in Serum or Plasma 3.5-5.1 [facility] RBC Auto (Bld) [#/Vol]Ordere d By: Delano Francis on 09-22-2024 RBC (Bld) [#/Vol] Erythrocytes [#/volu me] in Blood by Automated count 3.60-5.00 [facility] Serum or plasma anion gap de terminationOrdered By: Delano Francis on 09-22-2024 Anion gap [Moles/Vol] 8.3 mmol/L Normal 6.0-15.0 [facility] Comment on above: Performed By: #### D VENITA, LC T4, [id number], SEROTON, TEST F + T, T3R, THYGLOB AB, ESTRADIOL, TPO, SHBG, ESTRONE, INSULIN, PROG #### [facility] , #### T4F, TRISTEN, TSH3, A1C WTH eA, FILIBERTO, GLU, T3F #### [facility] [address] Anion gap [Moles/Vol] Serum or plasma an ion gap determination 6.0-15.0 [facility] Serum or plasma high density lipoprotein (HDL) cholesterol measurementOrdered By: Delano Francis on 09-22-2024 Cholesterol in HDL [Mass/Vol] 59 mg/dL Normal 23-92 [facility] Comment on above: HDL CHOL ATP-III CLA SSIFICATION Cardiovascular RiskHDL > or equal to 60 mg/dL LOWHDL < 40 mg/dL HIGH Result Comment: HDL CHOL ATP-III CLASSIFICATION Cardiovascular Risk HDL > or equal to 60 mg/dL LOW HDL < 40 mg/dL HIGH Performed By: #### D VNEITA, LC T4, [id number], SEROTON, TEST F + T, T3R, THYGLOB AB, ESTRADIOL, TPO, SHBG, ESTRONE, INSULIN, PROG #### [facility] , #### T4F, TRISTEN, TSH3, A1C WTH eA, FILIBERTO, GLU, T3F #### [facility] [address] Serum or plasma total choles terol/high density lipoprotein (HDL) cholesterol mass ratOrdered By: Delnao Francis on 09-22-2024 Cholesterol.total/Alivia sterol in HDL [Mass ratio] 3.7 {ratio} Normal <5.0 [facility] Comment on above: Performed By: #### D HEAS, LC T4, [id number], SEROTON, TEST F + T, T3R, THYGLOB AB, ESTRADIOL, TPO, SHBG, ESTRONE, INSULIN, PROG #### [facility] , #### T4F, TRISTEN, TSH3, A1C WTH eA, FILIBERTO, GLU, T3F #### [facility] [address] [place] [address] [facility] Cholesterol.total/Alivia sterol in HDL [Mass ratio] Serum or plasma total cholesterol/high density lipoprotein (HDL) cholesterol mass rat <5.0 [facility] Sodium [Moles/volume] in Ser um or PlasmaOrdered By: Delano Francis on 09-22-2024 Sodium [Moles/Vol] 138 mmol/L Normal 136-145 [facility] Comment on above: Performed By: #### D HEAS, LC T4, [id number], SEROTON, TEST F + T, T3R, THYGLOB AB, ESTRADIOL, TPO, SHBG, ESTRONE, INSULIN, PROG #### [facility] , #### T4F, TRISTEN, TSH3, A1C WTH eA, FILIBERTO, GLU, T3F #### [facility] [address] [place] [address] [facility] Sodium [Moles/Vol] Sodium [Moles/volume ] in Serum or Plasma 136-145 [facility] Thyrotropin [Units/volume] i n Serum or PlasmaOrdered By: Delano Francis on 09-22-2024 TSH Qn 2.30 m[IU]/L 0.45-5.33 [facility] TSH Qn Thyrotropin [Units/volume] in Serum or Plasma 0.45-5.33 [facility] Triglyceride [Mass/volume] i n Serum or PlasmaOrdered By: Delano Francis on 09-22-2024 Triglyceride [Mass/Vol] 52 mg/dL 0-149 [facility] Comment on above: TRIG ATP III CLASSIF ICATIONTRIG less than 150 mg/dL NormalTRIG 150-199 mg/dL Borderline highTRIG 200-500 mg/dL High TRIG greater than 500 mg/dL Very highStandard traceable to the Center for Disease Conrtrol and Prevention (CDC) test method. Triglyceride [Mass/Vol] Triglyceride [Mass/volume] in Serum or Plasma 0-149 [facility] Comment on above: TRIG ATP III CLASSIF ICATIONTRIG less than 150 mg/dL NormalTRIG 150-199 mg/dL Borderline highTRIG 200-500 mg/dL High TRIG greater than 500 mg/dL Very highStandard traceable to the Center for Disease Conrtrol and Prevention (CDC) test method. Urea nitrogen [Mass/volume] in Serum or PlasmaOrdered By: Delano Francis on 09-22-2024 Urea nitrogen [Mass/Vol] 9 mg/dL Normal 06-23 [facility] Comment on above: Performed By: #### D HEAS, LC T4, [id number], SEROTON, TEST F + T, T3R, THYGLOB AB, ESTRADIOL, TPO, SHBG, ESTRONE, INSULIN, PROG #### [facility] , #### T4F, TRISTEN, TSH3, A1C WTH eA, FILIBERTO, GLU, T3F #### [facility] [address] Urea nitrogen [Mass/Vol] Urea nitrogen [Mass/volume] in Serum or Plasma 06-23 [facility] WBC Auto (Bld) [#/Vol]Ordere d By: Delano Francis on 09-22-2024 WBC (Bld) [#/Vol] Leukocytes [#/volume ] in Blood by Automated count 3.8-11.6 [facility] IGP,APTIMA HPV,AGE GDLNon AGE GDLN ACOG TESTING Note . [facility] Comment on above: TESTS RESULT FLAG UN ITS REF RANGE LAB Clinician Provided Cytology Information Source.............Cervix;Endocervix No. of containers..01 ThinPrep Vial Age Algo ACOG Lara... FLAG LEGEND: L-Low Normal,H-High Normal,LL-Alert Low,HH-Alert High <-Panic Low,>-Panic High,A-Abnormal,AA-Critical Abnormal Performed at: 01 =[address] [address] Ilana Heath MD, HPV APTIMA Negative Negative [facility] Comment on above: This nucleic acid am plification test detects fourteen high- risk HPV types (16,18,31,33,35,39,45,51,52,56,58,59,66,68) without differentiation. Performed at: =[address] [id number] Building Rental Superintendent: Ilana Heath MD, Phone: [phone] Performed at: [address] [id number] Building Rental Superintendent: Ilana Heath MD, Phone: [phone] IGP, APTIMA HPV, RFX 16/18,45 Note . [facility] Comment on above: TESTS RESULT FLAG UN ITS REF RANGE LAB DIAGNOSIS: 02 NEGATIVE FOR INTRAEPITHELIAL LESION OR MALIGNANCY. Specimen adequacy: 02 Satisfactory for evaluation. No endocervical component is identified. Performed by: 02 Chema Camargo, [employer] Advisor (ASCP) . 02 Note: Note 02 The [...] <-Panic Low,>-Panic High,A-Abnormal,AA-Critical Abnormal Performed at: [address] [address] Ilana Heath MD, BRUSH-SPATULA [facility] 1,25 Dihydroxy Vit D Calcitr olon 01-07-2024 1,25 Dihydroxy Vit D Calcitrol 56.6 pg/mL Normal 24.8-81.5 [facility] Comment on above: Result Comment: Perf ormed at: - [facility] [address] [id number] Building Rental Superintendent: Quinton Wolf MD, Phone: [phone] Performed By: #### D HEAS, LC T4, [id number], SEROTON, TEST F + T, T3R, THYGLOB AB, ESTRADIOL, TPO, SHBG, ESTRONE, INSULIN, PROG #### [facility] , #### T4F, TRISTEN, TSH3, A1C WTH eA, FILIBERTO, GLU, T3F #### [facility] [address] A1C with Estimated Average G destiny 01-07-2024 Glucose [Mass/Vol] 105 mg/dL Normal [facility] Comment on above: Result Comment: PERF ORMED BY: [facility] [address] [place] [address] PATHOLOGIST PRICING LEAD JOSE GOEL M.D. Performed By: #### D VENITA, LC T4, [id number], SEROTON, TEST F + T, T3R, THYGLOB AB, ESTRADIOL, TPO, SHBG, ESTRONE, INSULIN, PROG #### [facility] , #### T4F, TRISTEN, TSH3, A1C WTH eA, FILIBERTO, GLU, T3F #### [address] Antithyroglobulin Abon 01-07 Antithyroglobulin Ab <1.0 Normal 0.0-0.9 [facility] Comment on above: Result Comment: Thyr oglobulin Antibody measured by [employer] Performed at: [address] [id number] Building Rental Superintendent: Baudilio Leyva PhD, Phone: [phone] Performed By: #### D VENITA, LC T4, [id number], SEROTON, TEST F + T, T3R, THYGLOB AB, ESTRADIOL, TPO, SHBG, ESTRONE, INSULIN, PROG #### [facility] , #### T4F, TRISTEN, TSH3, A1C WTH eA, FILIBERTO, GLU, T3F #### [address] Cortisolon 01-07-2024 Cortisol 6.8 ug/dL Normal [facility] Comment on above: Result Comment: Refe rence range: AM 6 - 24 ug/dl PM <10 ug/dl [facility] calender machine operator helper and method: [employer] DXI, POLYCLONAL ANTIBODY CORTISOL ASSAY. PERFORMED BY: [place] [address] PATHOLOGIST PRICING LEAD JOSE GOEL M.D. Performed By: #### D HEAS, LC T4, [id number], SEROTON, TEST F + T, T3R, THYGLOB AB, ESTRADIOL, TPO, SHBG, ESTRONE, INSULIN, PROG #### [facility] , #### T4F, TRISTEN, TSH3, A1C WTH eA, FILIBERTO, GLU, T3F #### [facility] [address] [place] [id number] [facility] Dehydroepiandrosterone Sulfa teOrdered By: Deisy Villar on 01-07-2024 Dehydroepiandrosterone Sulfate 174.0 ug/dL Normal 84.8-378.0 [facility] Comment on above: Performed By: #### D HEAS, LC T4, [id number], SEROTON, TEST F + T, T3R, THYGLOB AB, ESTRADIOL, TPO, SHBG, ESTRONE, INSULIN, PROG #### [facility] , #### T4F, TRISTEN, TSH3, A1C WTH eA, FILIBERTO, GLU, T3F #### [facility] [address] [place] [id number] [facility] Estradiolon 01-07-2024 Estradiol 300.0 pg/mL Normal . [facility] Comment on above: Result Comment: Adul t Female Range Follicular phase 12.5 - 166.0 Ovulation phase 85.8 - 498.0 Luteal phase 43.8 - 211.0 Postmenopausal <6.0 - 54.7 1st trimester 215.0 - >4300.0 Elías ECLIA methodology Performed By: #### D HEAS, LC T4, [id number], SEROTON, TEST F + T, T3R, THYGLOB AB, ESTRADIOL, TPO, SHBG, ESTRONE, INSULIN, PROG #### [facility] , #### T4F, TRISTEN, TSH3, A1C WTH eA, FILIBERTO, GLU, T3F #### [facility] [address] [place] [id number] [facility] Estrone, Serumon 01-07-2024 Estrone, Serum 46 pg/mL Normal 27-231 [facility] Comment on above: Result Comment: Rang e Adult (Premenopausal) 27 - 231 Menstrual Cycle (1-10 days) 19 - 149 Menstrual Cycle (11-20 days) 32 - 176 Menstrual Cycle (21-30 days) 37 - 200 Performed at: [address] [id number] Building Rental Superintendent: Quinton Wolf MD, Phone: [phone] Performed By: #### D HEAS, LC T4, [id number], SEROTON, TEST F + T, T3R, THYGLOB AB, ESTRADIOL, TPO, SHBG, ESTRONE, INSULIN, PROG #### [facility] , #### T4F, TRISTEN, TSH3, A1C WTH eA, FILIBERTO, GLU, T3F #### [facility] [address] Ferritin [Mass/volume] in Se rum or PlasmaOrdered By: Deisy Villar on 01-07-2024 Ferritin [Mass/Vol] 44.8 ng/mL Normal 11.0-306.[address] [facility] Comment on above: Performed By: #### D HEAS, LC T4, [id number], SEROTON, TEST F + T, T3R, THYGLOB AB, ESTRADIOL, TPO, SHBG, ESTRONE, INSULIN, PROG #### [facility] , #### T4F, TRISTEN, TSH3, A1C WTH eA, FILIBERTO, GLU, T3F #### [facility] [address] Free testosterone measuremen t by LC-MS/MSOrdered By: Deisy Villar on 01-07-2024 Testosterone Free [Mass/Vol] 0.3 pg/mL 0.0-4.2 [facility] Comment on above: Performed at: [address] [id number] Director: Baudilio Leyva PhD, Phone: [phone] at: - [facility] [id number] Director: Quinton Wolf MD, Phone: [phone] Glucose [Mass/volume] in Ser um or PlasmaOrdered By: Deisy Villar on 01-07-2024 Glucose [Mass/Vol] 84 mg/dL Normal 70-100 [facility] Comment on above: ADA recommended refe rence rangeRandom Glucose Reference Range is dependent on time and content of last meal. Glucose of more than 200 mg/dL in a nonstressed, ambulatory subject supports the diagnosis of Diabetes Mellitus. Result Comment: Richardson om Glucose Reference Range is dependent on time and content of last meal. Glucose of more than 200 mg/dL in a nonstressed, ambulatory subject supports the diagnosis of Diabetes Mellitus. ADA recommended reference range Performed By: #### D VENITA, LC T4, [id number], SEROTON, TEST F + T, T3R, THYGLOB AB, ESTRADIOL, TPO, SHBG, ESTRONE, INSULIN, PROG #### [facility] , #### T4F, TRISTEN, TSH3, A1C WTH eA, FILIBERTO, GLU, T3F #### [facility] [address] [place] [id number] [facility] Glucose mean value [Mass/vol ume] in Blood Estimated from glycated hemoglobinOrdered By: Deisy Villar on 01-07-2024 Average glucose Estimated from glycated hemoglobin (Bld) [Mass/Vol] 105 mg/dL [facility] Hemoglobin A1c percentageOrd ered By: Deisy Villar on 01-07-2024 HbA1c (Bld) [Mass fraction] 5.3 % Normal 4.3-5.6 [facility] Comment on above: Increased risk for d iabetes: 5.7 - 6.4diabetes: >6.4glycemic control for adults with diabetes: <7.0 Result Comment: Incr eased risk for diabetes: 5.7 - 6.4 diabetes: >6.4 glycemic control for adults with diabetes: <7.0 Performed By: #### D VENITA, JOSSE T4, [id number], SEROTON, TEST F + T, T3R, THYGLOB AB, ESTRADIOL, TPO, SHBG, ESTRONE, INSULIN, PROG #### [facility] , #### T4F, TRISTEN, TSH3, A1C WTH eA, FILIBERTO, GLU, T3F #### [facility] [address] Insulinon 01-07-2024 Insulin 4.5 u[iU]/mL Normal 2.6-24.9 [facility] Comment on above: Result Comment: Perf ormed at: - [facility] [address] [id number] Building Rental Superintendent: Baudilio Leyva PhD, Phone: [phone] Performed By: #### D HEAS, LC T4, [id number], SEROTON, TEST F + T, T3R, THYGLOB AB, ESTRADIOL, TPO, SHBG, ESTRONE, INSULIN, PROG #### [facility] , #### T4F, TRISTEN, TSH3, A1C WTH eA, FILIBERTO, GLU, T3F #### [facility] [address] Lab Alie Thyroxine (T4)on T4 [Mass/Vol] 8.2 ug/dL Normal 4.5-12.0 [facility] Comment on above: Performed By: #### D HEAS, LC T4, [id number], SEROTON, TEST F + T, T3R, THYGLOB AB, ESTRADIOL, TPO, SHBG, ESTRONE, INSULIN, PROG #### [facility] , #### T4F, TRISTEN, TSH3, A1C WTH eA, FILIBERTO, GLU, T3F #### [facility] [address] No Panel InformationOrdered By: Deisy Villar on 01-07-2024 Free Thyroxine (T4) Direct 8.2 ug/dL 4.5-12.0 [facility] Reverse Triiodothyronine (T3) 18.9 ng/dL 9.2-24.1 [facility] Comment on above: This test was develo ped and its performance characteristicsdetermined by [facility]. It has not been cleared orapproved by the Food and Drug Administration.Performed at: [facility] [id number] Director: Quinton Wolf MD, Phone: [phone] Sex Hormone Binding Globulin 95.4 nmol/L 24.6-122.0 [facility] Comment on above: Performed at: [facility] [address] [id number] Director: Baudilio Leyva PhD, Phone: [phone] Plasma serotonin measurement (mass/volume)Ordered By: Deisy Villar on 01-07-2024 Serotonin (P) [Mass/Vol] 71 ng/mL 31-207 [facility] Comment on above: This test was develo ped and its performance characteristicsdetermined by [facility]. It has not been cleared orapproved by the Food and Drug Administration.Performed at: [place] [address] [place], [place] [id number] Director: Quinton Wolf MD, Phone: [phone] Progesteroneon 01-07-2024 Progesterone 0.2 ng/mL Normal . [facility] Comment on above: Result Comment: Foll icular phase 0.1 - 0.9 Luteal phase 1.8 - 23.9 Ovulation phase 0.1 - 12.0 First trimester 11.0 - 44.3 Second trimester 25.4 - 83.3 Third trimester 58.7 - 214.0 Postmenopausal 0.0 - 0.1 Performed By: #### D HEAS, LC T4, [id number], SEROTON, TEST F + T, T3R, THYGLOB AB, ESTRADIOL, TPO, SHBG, ESTRONE, INSULIN, PROG #### [facility] , #### T4F, TRISTEN, TSH3, A1C WTH eA, FILIBERTO, GLU, T3F #### [facility] [address] Random cortisol measurementO rdered By: Deisy Villar on 01-07-2024 Cortisol [Mass/Vol] 6.8 ug/dL [facility] Comment on above: [facility] calender machine operator helper and method:HELGA UNICEL DXI, POLYCLONAL ANTIBODY CORTISOL ASSAY.Reference range: AM 6 - 24 ug/dl PM <10 ug/dl Serotonin, Serumon 4 Serotonin, Serum 71 ng/mL Normal [facility] Comment on above: Result Comment: This test was developed and its performance characteristics determined by [employer]. It has not been cleared or approved by the Food and Drug Administration. Performed at: [place] [address] [place], [place] [id number] Building Rental Superintendent: Quinton Wolf MD, Phone: [phone] PERFORMED BY: [facility] [address] [place] [address] PATHOLOGIST PRICING LEAD JOSE GOEL M.D. Performed By: #### D HEAS, LC T4, [id number], SEROTON, TEST F + T, T3R, THYGLOB AB, ESTRADIOL, TPO, SHBG, ESTRONE, INSULIN, PROG #### [facility] , #### T4F, TRISTEN, TSH3, A1C WTH eA, FILIBERTO, GLU, T3F #### [facility] [address] Serum estrone measurementOrd ered By: Deisy Villar on 01-07-2024 E1 [Mass/Vol] 46 pg/mL 27-231 [facility] Comment on above: Range Adult (Premeno pausal) 27 - 231 Menstrual Cycle (1-10 days) 19 - 149 Menstrual Cycle (11-20 days) 32 - 176 Menstrual Cycle (21-30 days) 37 - 200Performed at: [facility] [facility] [id number] Director: Quinton Wolf MD, Phone: [phone] Serum or plasma calcitriol m easurement (mass/volume)Ordered By: Deisy Villar on 01-07-2024 1,25-dihydroxyvitamin D3 [Mass/Vol] 56.6 pg/mL 24.8-81.5 [facility] Comment on above: Performed at: [employer] [address] [id number] Director: Quinton Wolf MD, Phone: [phone] Serum or plasma estradiol (E 2) measurement (mass/volume)Ordered By: Deisy Villar on 01-07-2024 E2 [Mass/Vol] 300.0 pg/mL . [facility] Comment on above: Adult Female Range F ollicular phase 12.5 - 166.0 Ovulation phase 85.8 - 498.0 Luteal phase 43.8 - 211.0 Postmenopausal <6.0 - 54.7 1st trimester 215.0 - >4300.0Roche ECLIA methodology Serum or plasma insulin kevin urement (units/volume)Ordered By: Deisy Villar on 01-07-2024 Insulin Qn 4.5 u[iU]/mL 2.6-24.9 [facility] Comment on above: Performed at: [facility] [address] [place], [place] [id number] Director: Baudilio Leyva PhD, Phone: [phone] Serum or plasma progesterone measurement (mass/volume)Ordered By: Deisy Villar on 01-07-2024 Progesterone [Mass/Vol] 0.2 ng/mL . [facility] Comment on above: Follicular phase 0.1 - 0.9 Luteal phase 1.8 - 23.9 Ovulation phase 0.1 - 12.0 First trimester 11.0 - 44.3 Second trimester 25.4 - 83.3 Third trimester 58.7 - 214.0 Postmenopausal 0.0 - 0.1 Serum or plasma thyroglobuli n antibody assay (units/volume)Ordered By: Deisy Villar on 01-07-2024 Thyroglobulin Ab Qn [IU]/mL 0.0-0.[address] [facility] Comment on above: Thyroglobulin Antibo dy measured by Five-ThirtyMethodologyPerformed at: [facility] [address] [id number] Director: Baudilio Leyva PhD, Phone: [phone] Serum or plasma thyroperoxid ase antibody assay (units/volume)Ordered By: Deisy Villar on 01-07-2024 TPO Ab Qn [IU]/mL 0-34 [facility] Comment on above: Performed at: [facility] [address] [id number] Director: Baudilio Leyva PhD, Phone: [phone] Sex Hormone Binding Globulin on 01-07-2024 Sex Hormone Binding Globulin 95.4 Normal 24.6-122.0 [facility] Comment on above: Result Comment: Perf ormed at: [facility] [address] [id number] Building Rental Superintendent: Baudilio Leyva PhD, Phone: [phone] Performed By: #### D HEAS, LC T4, [id number], SEROTON, TEST F + T, T3R, THYGLOB AB, ESTRADIOL, TPO, SHBG, ESTRONE, INSULIN, PROG #### [facility] , #### T4F, TRISTEN, TSH3, A1C WTH eA, FILIBERTO, GLU, T3F #### [facility] [address] Testosterone Free and TotalO rdered By: Deisy Villar on 01-07-2024 Testosterone [Mass/Vol] 16 ng/dL Normal 8-60 [facility] Comment on above: Performed By: #### D HEAS, LC T4, [id number], SEROTON, TEST F + T, T3R, THYGLOB AB, ESTRADIOL, TPO, SHBG, ESTRONE, INSULIN, PROG #### [facility] , #### T4F, TRISTEN, TSH3, A1C WTH eA, FILIBERTO, GLU, T3F #### [facility] [address] [place] [address] [place] Testosterone Free and Totalo n 01-07-2024 Testosterone,Free 0.3 pg/mL Normal 0.0-4.2 [facility] Comment on above: Result Comment: Perf ormed at: [facility] [id number] Building Rental Superintendent: Baudilio Leyva PhD, Phone: [phone] Performed at: [facility] [id number] Building Rental Superintendent: Quinton Wolf MD, Phone: [phone] Performed By: #### D HEAS, LC T4, [id number], SEROTON, TEST F + T, T3R, THYGLOB AB, ESTRADIOL, TPO, SHBG, ESTRONE, INSULIN, PROG #### [facility] , #### T4F, TRISTEN, TSH3, A1C WTH eA, FILIBERTO, GLU, T3F #### [facility] [address] [place] [id number] [facility] Thyroid Peroxidase Antibodie son 01-07-2024 Thyroid Peroxidase Antibodies <9 Normal 0-34 [facility] Comment on above: Result Comment: Perf ormed at: [facility] [id number] Building Rental Superintendent: Baudilio Leyva PhD, Phone: [phone] Performed By: #### D HEAS, LC T4, [id number], SEROTON, TEST F + T, T3R, THYGLOB AB, ESTRADIOL, TPO, SHBG, ESTRONE, INSULIN, PROG #### [facility] , #### T4F, TRISTEN, TSH3, A1C WTH eA, FILIBERTO, GLU, T3F #### [address] Thyrotropin [Units/volume] i n Serum or PlasmaOrdered By: Deisy Villar on 01-07-2024 TSH Qn 1.80 m[IU]/L Normal 0.45-5.33 [facility] Comment on above: Performed By: #### D HEAS, LC T4, [id number], SEROTON, TEST F + T, T3R, THYGLOB AB, ESTRADIOL, TPO, SHBG, ESTRONE, INSULIN, PROG #### [facility] , #### T4F, TRISTEN, TSH3, A1C WTH eA, FILIBERTO, GLU, T3F #### [address] Thyroxine (T4) free [Mass/vo lume] in Serum or PlasmaOrdered By: Deisy Villar on 01-07-2024 Free T4 [Mass/Vol] 0.88 ng/dL Normal 0.61-1.12 [facility] Comment on above: Performed By: #### D HEAS, LC T4, [id number], SEROTON, TEST F + T, T3R, THYGLOB AB, ESTRADIOL, TPO, SHBG, ESTRONE, INSULIN, PROG #### [facility] , #### T4F, TRISTEN, TSH3, A1C WTH eA, FILIBERTO, GLU, T3F #### [place] [address] [place] Triiodothyronine (T3) Freeon 01-07-2024 Triiodothyronine (T3) Free 3.90 pg/mL Normal 2.50-3.90 [facility] Comment on above: Result Comment: PERF ORMED BY: [place] [address] PATHOLOGIST PRICING LEAD JOSE GOEL M.D. Performed By: #### D VENITA, LC T4, [id number], SEROTON, TEST F + T, T3R, THYGLOB AB, ESTRADIOL, TPO, SHBG, ESTRONE, INSULIN, PROG #### [facility] , #### T4F, TRISTEN, TSH3, A1C WTH eA, FILIBERTO, GLU, T3F #### [facility] [address] [id number] [facility] Triiodothyronine (T3) Free [ Mass/volume] in Serum or PlasmaOrdered By: Deisy Villar on 01-07-2024 Free T3 [Mass/Vol] 3.90 pg/mL 2.50-3.90 [facility] Triiodothyronine (T3) Revers lonnie 01-07-2024 Triiodothyronine (T3) Reverse 18.9 ng/dL Normal 9.2-24.1 [facility] Comment on above: Result Comment: This test was developed and its performance characteristics determined by [facility]. It has not been cleared or approved by the Food and Drug Administration. Performed at: [address] [id number] Building Rental Superintendent: Quinton Wolf MD, Phone: [phone] Performed By: #### D VENITA, LC T4, [id number], SEROTON, TEST F + T, T3R, THYGLOB AB, ESTRADIOL, TPO, SHBG, ESTRONE, INSULIN, PROG #### [facility] , #### T4F, TRISTEN, TSH3, A1C WTH eA, FILIBERTO, GLU, T3F #### [facility] [address] [place] [address] [facility] Alanine aminotransferase [En zymatic activity/volume] in Serum or PlasmaOrdered By: Delano Francis on 09-17-2023 ALT [Catalytic activity/Vol] 20 U/L [facility] Albumin [Mass/volume] in Ser um or Plasma by Bromocresol green (BCG) dye binding methoOrdered By: Delano Francis on 09-17-2023 Albumin BCG dye [Mass/Vol] 4.3 g/dL 3.5-5.7 [facility] Alkaline phosphatase [Enzyma tic activity/volume] in Serum or PlasmaOrdered By: Delano Francis on 09-17-2023 ALP [Catalytic activity/Vol] 62 U/L 34-104 [facility] Aspartate aminotransferase [ Enzymatic activity/volume] in Serum or PlasmaOrdered By: Delano Francis on 09-17-2023 AST [Catalytic activity/Vol] 22 U/L 13-39 [facility] Basophils Auto (Bld) [#/Vol] Ordered By: Delano Francis on 09-17-2023 Basophils (Bld) [#/Vol] 0.0 10*3/uL 0.0-0.2 [facility] Basophils/100 WBC Auto (Bld) Ordered By: Delano Francis on 09-17-2023 Basophils/100 WBC (Bld) 0.4 % . [facility] Bilirubin.total [Mass/volume ] in Serum or PlasmaOrdered By: Delano Francis on 09-17-2023 Bilirubin [Mass/Vol] 0.7 mg/dL 0.3-1.0 [facility] Calcium [Mass/volume] in Ser um or PlasmaOrdered By: Delano Francis on 09-17-2023 Calcium [Mass/Vol] 9.4 mg/dL 8.6-10.3 [facility] Carbon dioxide, total [Moles /volume] in Serum or PlasmaOrdered By: Delano Francis on 09-17-2023 CO2 [Moles/Vol] 26.2 mmol/L 21.0-31.0 [facility] Chloride [Moles/volume] in S stevo or PlasmaOrdered By: Delano Francis on 09-17-2023 Chloride [Moles/Vol] 102 mmol/L 98-107 [facility] Cholesterol [Mass/volume] in Serum or PlasmaOrdered By: Delano Francis on 09-17-2023 Cholesterol [Mass/Vol] 214 mg/dL 140-200 [facility] Comment on above: Chol less than 200 m g/dl low riskChol 201-239 mg/dl borderline riskChol 240 mg/dl and greater high risk Cholesterol in LDL Calc [Mas s/Vol]Ordered By: Delano Francis on 09-17-2023 Cholesterol in LDL [Mass/Vol] 161 mg/dL 0-100 [facility] Comment on above: LDL ATP III CLASSIFI CATIONLDL less than 100 mg/dL OptimalLDL 100-129 mg/dL Near or above optimalLDL 130-159 mg/dL Borderline highLDL 160-189 mg/dL HighLDL greater than 189 mg/dL Very high Cholesterol in VLDL Calc [Ma ss/Vol]Ordered By: Delano Francis on 09-17-2023 Cholesterol in VLDL [Mass/Vol] 9 mg/dL [facility] Creatinine [Mass/volume] in Serum or PlasmaOrdered By: Delano Francis on 09-17-2023 Creatinine [Mass/Vol] 0.79 mg/dL 0.60-1.20 [facility] Eosinophils Auto (Bld) [#/Vo l]Ordered By: Delano Francis on 09-17-2023 Eosinophils (Bld) [#/Vol] 0.1 10*3/uL 0.0-0.45 [facility] Eosinophils/100 WBC Auto (Bl d)Ordered By: Delano Francis on 09-17-2023 Eosinophils/100 WBC (Bld) 0.9 % . [facility] Erythrocyte distribution wid th Auto (RBC) [Ratio]Ordered By: Delano Francis on 09-17-2023 Erythrocyte distribution width (RBC) [Ratio] 12.4 % 11.9-15.3 [facility] Globulin Calc (S) [Mass/Vol] Ordered By: Delano Francis on 09-17-2023 Globulin (S) [Mass/Vol] 2.5 g/dL [facility] Glucose [Mass/volume] in Ser um or PlasmaOrdered By: Delano Francis on 09-17-2023 Glucose [Mass/Vol] 75 mg/dL 70-100 [facility] Hematocrit Auto (Bld) [Volum e fraction]Ordered By: Delano Francis on 09-17-2023 Hematocrit (Bld) [Volume fraction] 34.2 % 34.0-46.4 [facility] Hemoglobin [Mass/volume] in BloodOrdered By: Delano Francis on 09-17-2023 Hemoglobin (Bld) [Mass/Vol] 11.8 g/dL 11.8-15.4 [facility] Leukocytes [#/volume] correc calvin for nucleated erythrocytes in Blood by Automated counOrdered By: Delano Francis on 09-17-2023 WBC corrected for nucl RBC Auto (Bld) [#/Vol] 5.9 10*3/uL 3.8-11.6 [facility] Lymphocytes Auto (Bld) [#/Vo l]Ordered By: Delano Francis on 09-17-2023 Lymphocytes (Bld) [#/Vol] 1.8 10*3/uL 1.00-4.8 [facility] Lymphocytes/100 WBC Auto (Bl d)Ordered By: Delano Francis on 09-17-2023 Lymphocytes/100 WBC (Bld) 30.5 % . [facility] MCH Auto (RBC) [Entitic mass ]Ordered By: Delano Francis on 09-17-2023 MCH (RBC) [Entitic mass] 31.8 pg 24.7-34.3 [facility] MCHC Auto (RBC) [Mass/Vol]Or dered By: Delano Francis on 09-17-2023 MCHC (RBC) [Mass/Vol] 34.4 g/dL 32.0-35.0 [facility] MCV Auto (RBC) [Entitic vol] Ordered By: Delano Francis on 09-17-2023 MCV (RBC) [Entitic vol] 92.5 fL 80-100 [facility] Monocytes Auto (Bld) [#/Vol] Ordered By: Delano Francis on 09-17-2023 Monocytes (Bld) [#/Vol] 0.5 10*3/uL 0.0-0.8 [facility] Monocytes/100 WBC Auto (Bld) Ordered By: Delano Francis on 09-17-2023 Monocytes/100 WBC (Bld) 9.2 % . [facility] Neutrophils Auto (Bld) [#/Vo l]Ordered By: Delano Francis on 09-17-2023 Neutrophils (Bld) [#/Vol] 3.5 10*3/uL 1.8-7.7 [facility] Neutrophils/100 WBC Auto (Bl d)Ordered By: Delano Francis on 09-17-2023 Neutrophils/100 WBC (Bld) 59.0 % . [facility] No Panel InformationOrdered By: Delano Francis on 09-17-2023 Estimated GFR (CKD-EPI) > 60.0 mL/Min [facility] Creatinine Clearance (Chem N/A [facility] Nucleated erythrocytes [Pres ence] in Blood by Automated countOrdered By: Delano Francis on 09-17-2023 Nucleated RBC Auto Ql (Bld) 0.2 /100{WBC} 0-0.5 [facility] Platelet mean volume Auto (B ld) [Entitic vol]Ordered By: Delano Francis on 09-17-2023 Platelet mean volume (Bld) [Entitic vol] 8.1 fL 6.3-10.7 [facility] Platelets Auto (Bld) [#/Vol] Ordered By: Delano Francis on 09-17-2023 Platelets (Bld) [#/Vol] 250 10*3/uL 150-450 [facility] Potassium [Moles/volume] in Serum or PlasmaOrdered By: Delano Francis on 09-17-2023 Potassium [Moles/Vol] 4.0 mmol/L 3.5-5.1 [facility] Protein [Mass/volume] in Ser um or PlasmaOrdered By: Delano Francis on 09-17-2023 Protein [Mass/Vol] 6.8 g/dL 6.4-8.9 [facility] RBC Auto (Bld) [#/Vol]Ordere d By: Delano Francis on 09-17-2023 RBC (Bld) [#/Vol] 3.70 10*6/uL 3.60-5.[address] [facility] Serum or plasma albumin/glob ulin mass ratioOrdered By: Delano Francis on 09-17-2023 Albumin/Globulin [Mass ratio] 1.7 {ratio} [facility] Serum or plasma anion gap de terminationOrdered By: Delano Francis on 09-17-2023 Anion gap [Moles/Vol] 10.8 mmol/L 6.0-15.0 [facility] Serum or plasma high density lipoprotein (HDL) cholesterol measurementOrdered By: Delano Francis on 09-17-2023 Cholesterol in HDL [Mass/Vol] 43 mg/dL 23-92 [facility] Comment on above: HDL CHOL ATP-III CLA SSIFICATION Cardiovascular RiskHDL > or equal to 60 mg/dL LOWHDL < 40 mg/dL HIGH Serum or plasma total choles terol/high density lipoprotein (HDL) cholesterol mass ratOrdered By: Delano Francis on 09-17-2023 Cholesterol.total/Alivia sterol in HDL [Mass ratio] 5.0 {ratio} <5.0 [facility] Sodium [Moles/volume] in Ser um or PlasmaOrdered By: Delano Francis on 09-17-2023 Sodium [Moles/Vol] 135 mmol/L 136-145 [facility] Thyrotropin [Units/volume] i n Serum or PlasmaOrdered By: Delano Francis on 09-17-2023 TSH Qn 1.04 m[IU]/L 0.45-5.33 [facility] Triglyceride [Mass/volume] i n Serum or PlasmaOrdered By: Delano Francis on 09-17-2023 Triglyceride [Mass/Vol] 48 mg/dL 0-149 [facility] Comment on above: TRIG ATP III CLASSIF ICATIONTRIG less than 150 mg/dL NormalTRIG 150-199 mg/dL Borderline highTRIG 200-500 mg/dL High TRIG greater than 500 mg/dL Very highStandard traceable to the Center for Disease Conrtrol and Prevention (CDC) test method. Urea nitrogen [Mass/volume] in Serum or PlasmaOrdered By: Delano Francis on 09-17-2023 Urea nitrogen [Mass/Vol] 7 mg/dL 7-25 [facility] WBC Auto (Bld) [#/Vol]Ordere d By: Delano Francis on 09-17-2023 WBC (Bld) [#/Vol] 5.9 10*3/uL 3.8-11.6 [facility] Mononucleosis Test, [place] 1 Heterophile Ab LA Ql (S) Negative [facility] Other Quick Strepon 09-26-2022 S. pyogenes Org specific cx Ql (Throat) Negative [employer] Other Quick Strep [facility] Other SARS-CoV-2 (COVID-19) RNA NA A+probe Ql (Resp)on 09-26-2022 SARS-CoV-2 (COVID-19) RNA ROB+probe Ql (Unsp spec) Negative [facility] Other PAP ACOG PANEL 2: 30 to 65on 09-01-2022 . . Normal [facility] Comment on above: Result Comment: Perf ormed at: WB Performed By: #### [id number] #### [facility] [address] [place] [address] Dr. Zonia Zhang Age Gdln ACOG Testing - [facility] Comment on above: Performed By: #### [id number] #### [facility] [address] [place] [address] Dr. Zonia Zhang DIAGNOSIS: Comment Normal [facility] Comment on above: Result Comment: NEGA TIVE FOR INTRAEPITHELIAL LESION OR MALIGNANCY. Performed at: WB Performed By: #### [id number] #### [facility] [address] [address] [address] Zonia Zhang HPV Aptima Negative Normal [facility] Comment on above: Result Comment: This nucleic acid amplification test detects fourteen high-risk HPV types (16,18,31,33,35,39,45,51,52,56,58,59,66,68) without differentiation. Performed at: =G Performed By: #### [id number] #### [facility] [address] [address] [address] Zonia Zhang Methodology: Comment [facility] Comment on above: Result Comment: This liquid based ThinPrep(R) pap test was screened with the use of an image guided system. Performed at: WB Performed By: #### [id number] #### [facility] [address] [place] [address] Dr. Zonia Zhang Note: Comment Normal [facility] Comment on above: Result Comment: The Pap smear is a screening test designed to aid in the detection of premalignant and malignant conditions of the uterine cervix. It is not a diagnostic procedure and should not be used as the sole means of detecting cervical cancer. Both false-positive and false-negative reports do occur. . Performed at: WB Performed By: #### [id number] #### [facility] [address] [place] [address] Dr. Zonia Zhang Performed by: Comment Normal [facility] Comment on above: Result Comment: Negin Tomas, [employer] Advisor (ASCP) Performed at: WB Performed By: #### [id number] #### [facility] [address] [address] [address] Zonia Zhang Specimen adequacy: Comment Normal [facility] Comment on above: Result Comment: Sati sfactory for evaluation. Endocervical and/or squamous metaplastic cells (endocervical component) are present. Performed at: WB Performed By: #### [id number] #### [facility] [address] [place] [address] Dr. Zonia Zhang Basophils Auto (Bld) [#/Vol] Ordered By: Delano Francis on 08-07-2022 Basophils (Bld) [#/Vol] 0.0 10*3/uL 0.0-0.2 [facility] Basophils/100 WBC Auto (Bld) Ordered By: Delano Francis on 08-07-2022 Basophils/100 WBC (Bld) 0.5 % . [facility] Blood hemoglobin measurement (mass/volume)Ordered By: Delano Francis on 08-07-2022 Hemoglobin (Bld) [Mass/Vol] 12.7 g/dL 11.8-15.4 [facility] Blood leukocytes automated c ount (number/volume)Ordered By: Dealno Francis on 08-07-2022 WBC (Bld) [#/Vol] 5.0 10*3/uL 4.5-11.0 [facility] Body fluid albumin measureme nt (mass/volume)Ordered By: Delano Francis on 08-07-2022 Albumin (Body fld) [Mass/Vol] 4.1 g/dL 3.2-5.5 [facility] Cholesterol [Mass/volume] in Serum or PlasmaOrdered By: Delano Francis on 08-07-2022 Cholesterol [Mass/Vol] 253 mg/dL 140-200 [facility] Comment on above: Chol less than 200 m g/dl low risk Chol 201-239 mg/dl borderline risk Chol 240 mg/dl and greater high risk Chol less than 200 m g/dl low riskChol 201-239 mg/dl borderline riskChol 240 mg/dl and greater high risk Cholesterol in LDL Calc [Mas s/Vol]Ordered By: Delano Francis on 08-07-2022 Cholesterol in LDL [Mass/Vol] 181 mg/dL 0-100 [facility] Comment on above: LDL ATP III [...] 08-07-2022 Cholesterol in VLDL [Mass/Vol] 12 mg/dL [facility] Creatinine and Glomerular fi ltration rate.predicted panel (S/P/Bld)Ordered By: Delano Francis on 08-07-2022 Creatinine [Mass/Vol] 0.76 mg/dL 0.44-1.03 [facility] Eosinophils Auto (Bld) [#/Vo l]Ordered By: Delano Francis on 08-07-2022 Eosinophils (Bld) [#/Vol] 0.1 10*3/uL 0.0-0.45 [facility] Eosinophils/100 WBC Auto (Bl d)Ordered By: Delano Francis on 08-07-2022 Eosinophils/100 WBC (Bld) 1.6 % . [facility] Erythrocyte distribution wid th Auto (RBC) [Ratio]Ordered By: Delano Francis on 08-07-2022 Erythrocyte distribution width (RBC) [Ratio] 12.6 % 11.9-15.3 [facility] Estimated glomerular filtrat ion rate (GFR) non- AmericanOrdered By: Delano Francis on 08-07-2022 GFR/1.73 sq M.predicted among non-blacks MDRD (S/P/Bld) [Vol rate/Area] > 60 mL/Min [facility] Globulin Calc (S) [Mass/Vol] Ordered By: Delano Francis on 08-07-2022 Globulin (S) [Mass/Vol] 2.3 g/dL [facility] Hematocrit Auto (Bld) [Volum e fraction]Ordered By: Delano Francis on 08-07-2022 Hematocrit (Bld) [Volume fraction] 37.5 % 34.0-46.4 [facility] - Chemistry and C hemistry - challengeOrdered By: Delano Francis on 08-07-2022 Glucose [Mass/Vol] 88 mg/dL 70-100 [facility] - Hematology and Cell countsOrdered By: Delano Francis on 08-07-2022 Nucleated RBC/100 WBC (Bld) [Ratio] 0.1 % 0-0.5 [facility] Lymphocytes Auto (Bld) [#/Vo l]Ordered By: Delano Francis on 08-07-2022 Lymphocytes (Bld) [#/Vol] 1.4 10*3/uL 1.00-4.8 [facility] Lymphocytes/100 WBC Auto (Bl d)Ordered By: Delano Francis on 08-07-2022 Lymphocytes/100 WBC (Bld) 28.1 % . [facility] MCH Auto (RBC) [Entitic mass ]Ordered By: Delano Francis on 08-07-2022 MCH (RBC) [Entitic mass] 31.8 pg 24.7-34.3 [facility] MCHC Auto (RBC) [Mass/Vol]Or dered By: Delano Francis on 08-07-2022 MCHC (RBC) [Mass/Vol] 33.8 g/dL 32.0-35.0 [facility] MCV Auto (RBC) [Entitic vol] Ordered By: Delano Francis on 08-07-2022 MCV (RBC) [Entitic vol] 94.3 fL 80-100 [facility] Monocyte %Ordered By: Delano Francis on 08-07-2022 Monocyte % 60 mg/dL 35-149 [facility] Comment on above: TRIG ATP III [...] 08-07-2022 Monocytes (Bld) [#/Vol] 0.5 10*3/uL 0.0-0.8 [facility] Monocytes/100 WBC Auto (Bld) Ordered By: Delano Francis on 08-07-2022 Monocytes/100 WBC (Bld) 10.1 % . [facility] Neutrophils Auto (Bld) [#/Vo l]Ordered By: Delano Francis on 08-07-2022 Neutrophils (Bld) [#/Vol] 3.0 10*3/uL 1.8-7.7 [facility] Neutrophils/100 WBC Auto (Bl d)Ordered By: Delano Francis on 08-07-2022 Neutrophils/100 WBC (Bld) 59.7 % . [facility] No Panel InformationOrdered By: Delano Francis on 08-07-2022 Estimated GFR () > 60 mL/Min [facility] Comment on above: GFR estimated refere nce range: According to KDOQI guidelines, <60 ml/min/1.73m2 is sufficient to diagnose a patient with chronic kidney disease. Nicotine Metabolite Negative Cutoff=[address] [facility] Comment on above: Performed at: [address] [id number] Director: Quinton Wolf MD, Phone: [phone] Pharmacy Creatinine Clearance (Chem N/A [facility] Platelet mean volume Auto (B ld) [Entitic vol]Ordered By: Delano Francis on 08-07-2022 Platelet mean volume (Bld) [Entitic vol] 7.8 fL 6.3-10.7 [facility] Platelets Auto (Bld) [#/Vol] Ordered By: Delano Francis on 08-07-2022 Platelets (Bld) [#/Vol] 275 10*3/uL 150-450 [facility] Protein [Mass/volume] in Ser um or PlasmaOrdered By: Delano Francis on 08-07-2022 Protein [Mass/Vol] 6.4 g/dL 6.1-7.9 [facility] RBC Auto (Bld) [#/Vol]Ordere d By: Delano Francis on 08-07-2022 RBC (Bld) [#/Vol] 3.97 10*6/uL 3.60-5.[address] [facility] Serum or plasma alanine troy otransferase measurement without P-5'-P (enzymatic activiOrdered By: Delano Francis on 08-07-2022 ALT No additional P-5'-P [Catalytic activity/Vol] 13 U/L 10-60 [facility] Serum or plasma albumin/glob ulin mass ratioOrdered By: Delano Francis on 08-07-2022 Albumin/Globulin [Mass ratio] 1.8 {ratio} [facility] Serum or plasma alkaline nova sphatase measurement (enzymatic activity/volume)Ordered By: Delano Francis on 08-07-2022 ALP [Catalytic activity/Vol] 52 U/L 32-92 [facility] Serum or plasma anion gap de terminationOrdered By: Delano Francis on 08-07-2022 Anion gap [Moles/Vol] 11.7 mmol/L 6.0-15.0 [facility] Serum or plasma aspartate am inotransferase measurement (enzymatic activity/volume)Ordered By: Delano Francis on 08-07-2022 AST [Catalytic activity/Vol] 15 U/L 10-42 [facility] Serum or plasma calcium kevin urement (mass/volume)Ordered By: Delano Francis on 08-07-2022 Calcium [Mass/Vol] 9.8 mg/dL 8.2-10.2 [facility] Serum or plasma chloride ra surement (moles/volume)Ordered By: Delano Francis on 08-07-2022 Chloride [Moles/Vol] 101 mmol/L 95-114 [facility] Serum or plasma high density lipoprotein (HDL) cholesterol measurementOrdered By: Delano Francis on 08-07-2022 Cholesterol in HDL [Mass/Vol] 60 mg/dL 35-85 [facility] Comment on above: HDL CHOL ATP-III CLA SSIFICATION Cardiovascular Risk HDL > or equal to 60 mg/dL LOW HDL < 40 mg/dL HIGH HDL CHOL ATP-III CLA SSIFICATION Cardiovascular RiskHDL > or equal to 60 mg/dL LOWHDL < 40 mg/dL HIGH Serum or plasma potassium me asurement (moles/volume)Ordered By: Delano Francis on 08-07-2022 Potassium [Moles/Vol] 4.4 mmol/L 3.5-5.1 [facility] Serum or plasma sodium measu rement (moles/volume)Ordered By: Delano Francis on 08-07-2022 Sodium [Moles/Vol] 136 mmol/L 136-146 [facility] Serum or plasma total biliru bin measurement (mass/volume)Ordered By: Delano Francis on 08-07-2022 Bilirubin [Mass/Vol] 1.0 mg/dL 0.3-1.2 [facility] Serum or plasma total carbon dioxide measurement (moles/volume)Ordered By: Delano Francis on 08-07-2022 CO2 [Moles/Vol] 27.7 mmol/L 22.0-30.0 [facility] Serum or plasma total choles terol/high density lipoprotein (HDL) cholesterol mass ratOrdered By: Delano Francis on 08-07-2022 Cholesterol.total/Alivia sterol in HDL [Mass ratio] 4.2 {ratio} <5.0 [facility] Serum or plasma urea nitroge n measurement (mass/volume)Ordered By: Delano Francis on 08-07-2022 Urea nitrogen [Mass/Vol] 9 mg/dL 9-23 [facility] TSH DL <= 0.005 mIU/L QnOrde red By: Delano Tito on 08-07-2022 TSH Qn 1.43 m[IU]/L 0.45-5.33 [facility] T3, TOTAL (TRIIODOTHYRONINE) on 06-07-2022 T3, TOTAL 88 ng/dL Normal 71-180 [facility] Comment on above: Performed By: #### T 3TOTAL #### [facility] [address] [place] [address] Dr. Zonia Zhang FREE T4on 06-06-2022 Free T4 [Mass/Vol] 0.94 ng/dL Normal 0.76-1.46 [facility] Comment on above: Performed By: #### F T4 #### [facility] [address] [place] [address] Dr. Zonia Zhang TSHon 06-06-2022 TSH 1.364 uIU/mL Normal 0.358-3.74 0 [facility] Comment on above: Performed By: #### T SH #### [facility] [address] [place] [address] Dr. Zonia Zhang COVID Quick Testingon 2021 Result Positive [employer] Other Quick Fluon 12-27-2021 FLUAV Ab CF (S) [Titer] Negative N [employer] Other FLUBV Ab CF (S) [Titer] Negative [employer] Other Vital Signs Date Time Vital Sign Value Performing Clinician Facility 10-18-2024 11:050 Body height 170.18 cm Plated DO Work Phone: [facility] 10-18-2024 11:19-050 Body mass index (BMI) [Ratio] 29.7 kg/m2 Plated DO Work Phone: [facility] 10-18-2024 11:19050 Body weight 86.23 kg Plated DO Work Phone: [facility] 10-18-2024 11:19-050 Diastolic blood pressure 77 mm[Hg] Robles Ball DO Work Phone: [facility] 10-18-2024 11:19-0500 Heart rate 88 /min Robles Ball DO Work Phone: [facility] 10-18-2024 11:19-0500 Respiratory rate 12 /min Robles Ball DO Work Phone: [facility] 10-18-2024 11:19-0500 Systolic blood pressure 111 mm[Hg] Robles Ball DO Work Phone: [facility] 09-13-2024 14:28-0400 Body mass index (BMI) [Ratio] 28.79 kg/m2 Ángel Sita DO Work Phone: [facility] 09-13-2024 14:28-0400 Body weight 83.37 kg Ángel Sita DO Work Phone: [facility] 09-13-2024 14:28-0400 Diastolic blood pressure 70 mm[Hg] Ángel Sita DO Work Phone: [facility] 09-13-2024 14:28-0400 Systolic blood pressure 120 mm[Hg] Ángel Sita DO Work Phone: [facility] 05-03-2024 14:40-0400 Body height 170.18 cm [facility] 05-03-2024 14:40-0400 Body mass index (BMI) [Ratio] 28.3 kg/m2 [facility] 05-03-2024 14:40-0400 Body weight 82.1 kg [facility] 05-03-2024 14:40-0400 Diastolic blood pressure 82 mm[Hg] [facility] 05-03-2024 14:40-0400 Heart rate 78 /min [facility] 05-03-2024 14:40-0400 SaO2% (BldA) [Mass fraction] 98 % [facility] 05-03-2024 14:40-0400 Systolic blood pressure 122 mm[Hg] [facility] 01-06-2024 14:20-0500 Body height 170.2 cm Deisy Weldon PA Work Phone: [facility] 01-06-2024 14:20-0500 Body mass index (BMI) [Ratio] 28.05 kg/m2 Deisy Villar PA Work Phone: [facility] 01-06-2024 14:20-0500 Body weight 81.25 kg Deisy Gonzalezey PA Work Phone: [facility] 01-06-2024 14:20-0500 Diastolic blood pressure 70 mm[Hg] Deisy Gonzalezey PA Work Phone: [facility] 01-06-2024 14:20-0500 Systolic blood pressure 120 mm[Hg] Deisy Gonzalezey PA Work Phone: [facility] 10-02-2023 10:00-0400 Body height 170.18 cm Robles Ball Other [employer] Other 10-02-2023 10:00-0400 Body mass index (BMI) [Ratio] 29.38 kg/m2 Robles Ball Other [employer] Other 10-02-2023 10:00-0400 Body weight 85.1 kg Robles Ball Other [employer] Other 10-02-2023 10:00-0400 Diastolic blood pressure 83 mm[Hg] Robles Ball Other [employer] Other 10-02-2023 10:00-0400 Respiratory rate 12 /min Robles Ball Other [employer] Other 10-02-2023 10:00-0400 Systolic blood pressure 131 mm[Hg] Robles Ball Other [employer] Other 01-22-2023 10:30-0500 Body height 170.18 cm Robles Ball Other [employer] Other 01-22-2023 10:30-0500 Body mass index (BMI) [Ratio] 29.91 kg/m2 Robles Ball Other [employer] Other 01-22-2023 10:30-0500 Body weight 86.64 kg Robles Ball Other [employer] Other 01-22-2023 10:30-0500 Diastolic blood pressure 72 mm[Hg] Robles Ball Other [employer] Other 01-22-2023 10:30-0500 Respiratory rate 16 /min Robles Ball Other [employer] Other 01-22-2023 10:30-0500 Systolic blood pressure 122 mm[Hg] Robles Ball Other [employer] Other 09-26-2022 16:10-0400 Body height 170.18 cm Kiya Schaffer Other [employer] Other 09-26-2022 16:10-0400 Body mass index (BMI) [Ratio] 29.29 kg/m2 Kiya Schaffer Other [employer] Other 09-26-2022 16:10-0400 Body temperature 98.8 [degF] Kiya Schaffer Other [employer] Other 09-26-2022 16:10-0400 Body weight 84.82 kg Kiya Schaffer Other [employer] Other 09-26-2022 16:10-0400 Diastolic blood pressure 73 mm[Hg] Kiya Schaffer Other [employer] Other 09-26-2022 16:10-0400 Respiratory rate 18 /min Kiya Schaffer Other [employer] Other 09-26-2022 16:10-0400 SaO2% (BldA) [Mass fraction] 97 % Kiya Schaffer Other [employer] Other 09-26-2022 16:10-0400 Systolic blood pressure 125 mm[Hg] Kiya Schaffer Other [employer] Other 12-27-2021 10:15-0500 Body height 170.18 cm Elsi Mayer Other [employer] Other 12-27-2021 10:15-0500 Body mass index (BMI) [Ratio] 28.19 kg/m2 Elsi Mayer Other [employer] Other 12-27-2021 10:15-0500 Body temperature 100.3 [degF] Elsi Mayer Other [employer] Other 12-27-2021 10:15-0500 Body weight 81.65 kg Elsi Mayer Other [employer] Other 12-27-2021 10:15-0500 Respiratory rate 18 /min Elsi Mayer Other [employer] Other 12-27-2021 10:15-0500 SaO2% (BldA) [Mass fraction] 98 % Elsi Mayer Other [employer] Other Encounters Encounter Date Encounter Type Care Provider Facility Start: 01-05-2025 End: 01-05-2025 ambulatory DEISY VILLAR Not Available Start: 12-12-2024 End: 12-12-2024 Clinisync Result Encounter Ángel Buckner DO Work Phone: [facility] Unsolicited Start: 12-12-2024 End: 12-12-2024 Clinisync Result Encounter Ángel Sita DO Work Phone: [facility] Unsolicited Start: 12-10-2024 End: 12-10-2024 Clinisync Result Encounter Ángel Sita DO Work Phone: [facility] Unsolicited Start: 12-10-2024 End: 12-10-2024 Clinisync Result Encounter Ángel Sita DO Work Phone: [facility] Unsolicited Start: 10-18-2024 End: 10-18-2024 ambulatory Robles Ball DO Work Phone: [facility] Work Phone: Start: 10-18-2024 End: 10-18-2024 Encounter for general adult medical examination without abnormal findings Robles Ball DO Work Phone: [facility] Start: 10-18-2024 End: 10-18-2024 Patient encounter procedure Robles Ball DO Work Phone: [facility] Work Phone: Start: 10-16-2024 Patient encounter status Jermaine min Ball DO Work Phone: [facility] Start: 10-14-2024 Non-patient / Non-visit Benjam in Ball DO Work Phone: [facility] Work Phone: Start: 09-22-2024 End: 09-22-2024 Departed Referred DO Robles Ball Work Phone: [facility] Start: 09-22-2024 End: 09-22-2024 ambulatory DO Robles Ball Work Phone: [facility] Work Phone: Start: 09-13-2024 End: 09-13-2024 Bamboo flowsheet Ángel Sita DO Work Phone: [facility] Start: 09-13-2024 End: 09-20-2024 Bamboo flowsheet Ángel Sita DO Work Phone: [facility] Start: 09-13-2024 End: 09-20-2024 Clinisync Result Encounter Ángel Sita DO Work Phone: [facility] Unsolicited Start: 09-13-2024 End: 09-13-2024 Patient encounter procedure Ángel Sita DO Work Phone: [facility] Work Phone: Start: 09-13-2024 End: 09-13-2024 Periodic preventive med est patient 18-39 yrs Ángel Sita DO Work Phone: [facility] Comment on above: Well woman exam with routine gynecological exam Start: 09-13-2024 End: 09-13-2024 ambulatory ÁNGELBambi LESTERO Not Available Start: 08-29-2024 End: 08-29-2024 ambulatory [facility] Work Phone: Start: 08-29-2024 End: 08-29-2024 Patient encounter procedure [facility] Work Phone: Start: 05-03-2024 End: 05-03-2024 ambulatory [facility] Work Phone: Start: 05-03-2024 End: 05-03-2024 Patient encounter procedure [facility] Work Phone: Start: 03-02-2024 End: 03-02-2024 ambulatory DEISY VILLAR Not Available Start: 2024 End: 2024 ambulatory DO Robles Ball Work Phone: [facility] Work Phone: Start: 2024 End: 2024 Patient encounter procedure DO Robles Ball Work Phone: [facility] Work Phone: Start: 02-03-2024 End: 02-03-2024 ambulatory DEISY VILLAR Not Available Start: 01-07-2024 End: 01-07-2024 Patient encounter procedure DO Robles Charles Work Phone: [facility] Work Phone: Start: 01-07-2024 End: 01-07-2024 ambulatory DO Robles Charles Work Phone: [facility] Work Phone: Start: 01-06-2024 End: 01-06-2024 Office outpatient visit 15 minutes Deisy Villar PA Work Phone: [facility] Comment on above: Encounter for weight management; Hormone disorder; 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 Start: 10-02-2023 End: 10-02-2023 ambulatory Robles Charles Other [employer] Other Start: 10-02-2023 Encounter for genera l adult medical examination without abnormal findings Robles Charles [facility] Start: 10-02-2023 Periodic preventive med est patient 18-39 yrs Robles Charles [facility] Start: 09-17-2023 End: 09-17-2023 ambulatory MD Liz Conteh Work Phone: [facility] Work Phone: Start: 09-17-2023 End: 09-17-2023 Departed Referred MD Liz Conteh Work Phone: [facility]-Employee Benefit Screening Start: 01-22-2023 End: 01-22-2023 ambulatory Robles Charles Other [employer] Other Start: 01-22-2023 Office outpatient vi sit 15 minutes Robles Charles [facility] Start: 01-12-2023 End: 01-12-2023 ambulatory Robles Charles Other [employer] Other Start: 01-12-2023 Telephone encounter Robles Charles [facility] Start: 12-24-2022 End: 12-24-2022 ambulatory Robles Charles Other [employer] Other Start: 12-24-2022 Office outpatient vi sit 15 minutes [facility]les [facility] Start: 09-30-2022 End: 09-30-2022 ambulatory Kiya Schaffer Other [employer] Other Start: 09-30-2022 Telephone encounter Kiyavipul Schaffer [facility] [address] Start: 09-26-2022 End: 09-26-2022 Departed Referred MD Liz Conteh Work Phone: [facility] Start: 09-26-2022 End: 09-26-2022 ambulatory MD Liz Conteh Work Phone: [facility] Work Phone: Start: 09-26-2022 Office outpatient vi sit 15 minutes Kiya Schaffer [facility] Start: 09-25-2022 ([facility] C Vac) [facility] Co vid Vaccine Subha Dillon [facility] Start: 09-25-2022 End: 09-25-2022 ambulatory MD Liz Conteh Work Phone: [facility] Work Phone: Start: 09-25-2022 End: 09-25-2022 Patient encounter procedure MD Liz Conteh Work Phone: [facility]-Covid Vaccine Off Site Start: 08-25-2022 End: 08-25-[address] ÁNGEL BUCKNER Facility:[facility] Start: 08-07-2022 End: 08-07-2022 Departed Referred MD Liz Conteh Work Phone: [facility]-Employee Benefit Screening Start: 06-06-2022 End: 06-07-[address] ROBLES CHARLES Facility:[facility] Start: 01-01-2022 End: 01-01-2022 ambulatory Elsi Mayre Other [employer] Other Start: 01-01-2022 Office outpatient vi sit 5 minutes Elsi Mayer [facility] Start: 12-27-2021 End: 12-27-2021 ambulatory Elsi [facility] [employer] Other Start: 12-27-2021 Office outpatient vi sit 15 minutes Elsi Hamond [facility] Start: 08-23-2021 ([facility] C Vac) [facility] Co vid Vaccine Subha Dillon [facility] Procedures Date Procedure Procedure Detail Performing Clinician Start: 12-12-2024 [facility] PREG QUANT HCG Core y Sita DO Work Phone: Start: 12-10-2024 [facility] PREG QUANT HCG Core y Sita DO Work Phone: Start: 09-13-2024 IGP,APTIMA HPV,AGE GDLN Ángel Sita DO Work Phone: Start: 06-19-2020 Microscopic observat ion [Identifier] in Cervix by Cyto stain Deisy MUNOZ Work Phone: Plan of Treatment Date Care Activity Detail Author Start: 09-19-2025 End: 09-19-2025 Patient encounter procedure 09/19/2025 8:30 AM EDT Office Visit [facility] [address] [place] [address] Ángel Buckner, DO [address] [place] [address] [facility] Start: 06-19-2025 Screening for malignant neoplasm of cervix [facility] Start: 01-05-2025 End: 01-05-2025 ambulatory 01/05/2025 1:30 PM EST Initial [facility] [address] [place] [address] [facility] Start: 01-05-2025 End: 01-05-2025 Professional / ancillary services management 01/05/2025 1:00 PM EST Ancillary Procedure [facility] [address] [place] [address] [facility] Start: 09-13-2024 End: 09-13-2024 Patient encounter procedure [facility] Comment on above: Arrived Start: 07-31-2024 Influenza vaccination Influenza Vaccine (#1) [facility] Start: 02-03-2024 End: 02-03-2024 Patient encounter procedure 02/03/2024 1:50 PM EST Office Visit [facility] [address] [place] [id number] Deisy Villar PA [address] [place] [address] [facility] Start: 01-07-2024 Dehydroepiandrosterone sulfate level [facility] Start: 01-07-2024 Sex hormone binding globulin measurement [facility] Start: 01-07-2024 T3 reverse measurement [facility] Start: 01-07-2024 Thyroxine measurement [facility] Start: 01-07-2024 [facility] Start: 01-06-2024 End: 01-06-2025 Anti-thyroglobulin antibody Anti-thyroglobulin antibody Lab Routine Hormone disorder Expected: 01/06/2024 (Approximate), Expires: 01/06/2025 [facility] Comment on above: Expected: 01/06/2024 (Approximate), Expi res: 01/06/2025 Start: 01-06-2024 End: 01-06-2025 C-peptide C-peptide Lab Routine Hormone disorder Expected: 01/06/2024 (Approximate), Expires: 01/06/2025 [facility] Comment on above: Expected: 01/06/2024 (Approximate), Expi res: 01/06/2025 Start: 01-06-2024 End: 01-06-2025 Cortisol free Cortisol, free Lab Routine Hormone disorder Expected: 01/06/2024 (Approximate), Expires: 01/06/2025 [facility] Comment on above: Expected: 01/06/2024 (Approximate), Expi res: 01/06/2025 Start: 01-06-2024 End: 01-06-2025 Glucose [Mass/volume] in Serum or Plasma Glucose, random Lab Routine Hormone disorder Expected: 01/06/2024 (Approximate), Expires: 01/06/2025 [facility] Comment on above: Expected: 01/06/2024 (Approximate), Expi res: 01/06/2025 Start: 01-06-2024 End: 01-06-2025 Insulin, total Insulin, total Lab Routine Hormone disorder Expected: 01/06/2024 (Approximate), Expires: 01/06/2025 [facility] Comment on above: Expected: 01/06/2024 (Approximate), Expi res: 01/06/2025 Start: 01-06-2024 End: 01-06-2025 Serotonin serum Serotonin serum Lab Routine Hormone disorder Expected: 01/06/2024 (Approximate), Expires: 01/06/2025 [facility] Comment on above: Expected: 01/06/2024 (Approximate), Expi res: 01/06/2025 Start: 01-06-2024 End: 01-06-2025 Thyroglobulin Thyroglobulin Lab Routine Hormone disorder Expected: 01/06/2024 (Approximate), Expires: 01/06/2025 [facility] Comment on above: Expected: 01/06/2024 (Approximate), Expi res: 01/06/2025 Start: 01-06-2024 End: 01-06-2025 Thyrotropin [Units/volume] in Serum or Plasma [facility] Comment on above: Ordered: 01/06/2024 Expected: 01/06/2024 (Approximate), Expires: 01/06/2025 Start: 09-17-2023 [facility] Start: 08-07-2022 [facility] Work Phone: Calcitriol [Mass/vol ume] in Serum or Plasma [facility] Cytology Cervical or vaginal smear or scraping study Pap Smear Pathology and Cytology Routine Well woman exam with routine gynecological exam Ordered: 09/13/2024 [facility] Work Phone: Comment on above: Ordered: 09/13/2024 DHEA-sulfate DHEA-sulfate Lab Routine Hormone disorder Ordered: 01/06/2024 [facility] Comment on above: Ordered: 01/06/2024 Estradiol Estradiol Lab Ro utine Hormone disorder Ordered: 01/06/2024 [facility] Work Phone: Comment on above: Ordered: 01/06/2024 Estradiol (E2) [Mass /volume] in Serum or Plasma [facility] Estrone Estrone Lab Rout ine Hormone disorder Ordered: 01/06/2024 [facility] Comment on above: Ordered: 01/06/2024 Estrone (E1) [Mass/v olume] in Serum or Plasma [facility] Ferritin [Mass/volum e] in Serum or Plasma Ferritin Lab Routine Hormone disorder Ordered: 01/06/2024 [facility] Comment on above: Ordered: 01/06/2024 Hemoglobin A1c measurement Hemog lobin A1c Lab Routine Hormone disorder Ordered: 01/06/2024 [facility] Comment on above: Ordered: 01/06/2024 Human papilloma viru s DNA [Presence] in Unspecified specimen by Probe with amplification HPV DNA probe, amplified Microbiology Routine Well woman exam with routine gynecological exam Ordered: 09/13/2024 [facility] Comment on above: Ordered: 09/13/2024 Insulin [Units/volum e] in Serum or Plasma [facility] Progesterone Progesterone Lab Routine Hormone disorder Ordered: 01/06/2024 [facility] Comment on above: Ordered: 01/06/2024 Progesterone [Mass/v olume] in Serum or Plasma [facility] Serotonin [Mass/volu me] in Plasma [facility] Sex hormone binding globulin Sex hormone binding globulin Lab Routine Hormone disorder Ordered: 01/06/2024 [facility] Comment on above: Ordered: 01/06/2024 T3, reverse T3, reverse Lab Routine Hormone disorder Ordered: 01/06/2024 [facility] Comment on above: Ordered: 01/06/2024 Testosterone Free [Mass/volume] in Serum or Plasma [facility] TESTOSTERONE, FREE TESTOSTERONE, FREE Lab Routine Hormone disorder Ordered: 01/06/2024 [facility] Comment on above: Ordered: 01/06/2024 Testosterone, free, total Testos terone, free, total Lab Routine Hormone disorder Ordered: 01/06/2024 [facility] Comment on above: Ordered: 01/06/2024 Throat culture Throat Culture [facility] Thyroglobulin Ab [Units/volume] in Serum or Plasma [facility] Thyroid peroxidase antibody Thyr oid peroxidase antibody Lab Routine Hormone disorder Ordered: 01/06/2024 [facility] Comment on above: Ordered: 01/06/2024 Thyroperoxidase Ab [Units/volume] in Serum or Plasma [facility] Thyroxine (T4) free [Mass/volume] in Serum or Plasma T4, free Lab Routine Hormone disorder Ordered: 01/06/2024 [facility] Comment on above: Ordered: 01/06/2024 Triiodothyronine (T3 ) Free [Mass/volume] in Serum or Plasma T3, free Lab Routine Hormone disorder Ordered: 01/06/2024 [facility] Comment on above: Ordered: 01/06/2024 Vitamin D 1,25 dihydroxy Vitamin D 1,25 dihydroxy Lab Routine Hormone disorder Ordered: 01/06/2024 [facility] Comment on above: Ordered: 01/06/2024 [facility] Work Phone: Immunizations Immunization Date Immunization Notes Care Provider Fa samy 09-15-2023 influenza, injectabl e, quadrivalent, preservative free [facility] 09-15-2023 influenza virus vaccine, unspecified formulation Ángel Buckner DO Work Phone: [facility] 09-25-2022 COVID-19 Moderna (BIvalent) Kiya Schaffer Other [facility] 08-23-2021 COVID-19 Pfizer Subha Fitt Other [facility] 07-31-2021 COVID-19 Pfizer Subha Fitt Other [facility] 05-19-2021 diphtheria, tetanus toxoids and pertussis vaccine [facility] Payers Date Payer Category Payer Self-pay [id number] 2022 Private Health Insurance [employer] [id number] 2022 Unknown [employer] [id number] 2022-Present [address] [place] [address] [id number] 1990 Unknown [id number] 1990 Unknown [id number] 1990 Unknown [id number] 1990 Unknown [id number] 1990 Unknown [id number] 1990 Unknown [id number] 1990 Unknown [id number] 1959 Unknown [id number] Unknown [id number] Unknown [id number] Worker's Compensation [facility] t Ind [id number] Social History Date Type Detail Facility Start: 10-13-2023 End: 01-06-2024 Sex Assigned At [facility] Start: 1990 Sex Assigned At Female [facility] Start: 08-13-2023 End: 05-03-2024 Tobacco smoking status NHIS Never smoked tobacco [facility] Start: 01-06-2024 End: 09-13-2024 Alcohol intake Current drinker of alcohol (finding) [facility] Start: 10-13-2023 End: 01-06-2024 History of Social function [facility] How [...] Gender identity Identifies as female gender (finding) [facility] Start: 10-18-2024 Sex Female (finding) [facility] Clinical Notes 08-23-2021 to 09-13-2024 Renu [...] nursing note reviewed. Exam conducted with a manager search present. Vitals: Estimated body mass index is 28.79 kg/m as calculated from the following: Height as of 24: 5' 7 . Weight as of this [...] by Renu Charlton LPN on behalf of: Ángel Buckner DO documented in this encounter [facility] 01-06-2024 History of Presen t illness Narrative [...] Diagnosis Date Fatigue GARTH (generalized anxiety disorder) ([facility]) Hyperlipidemia ([facility]) Paronychia, finger Family History Problem Relation Name [...] of: ALEXANDER Gramajo documented in this encounter [facility] 10-02-2023 Evaluation note Encounter Date Diagnosis Assessment [...] or drinking prior to bedtime. Weight loss. Pephernan HOBBS [employer] Other 2023 Evaluation note* Encounter Date Diagnosis Assessment Notes Treatment Notes Treatment Clinical Notes Dec, Nasal turbinate hypertrophy (ICD-10 - J34.3) FLonase, saline NS, Sudafed and avoid use of Afin. Refer to ENT. Dec, Nonallergic vasomotor rhinitis (ICD-10 - J30.0) Prednisone tapered over 8 days. Claritin as needed. [facility] Other 02-13-2023 Evaluation note* Encounter Date Diagnosis Assessment Notes Treatment Notes Treatment Clinical Notes Dec, Acute non-recurrent maxillary sinusitis (ICD-10 - J01.00) [facility] Other 01-25-2023 Evaluation note* Encounter Date Diagnosis Assessment Notes Treatment Notes Treatment Clinical Notes Nov, Acute non-recurrent maxillary sinusitis (ICD-10 - J01.00) Instructed to use Robitussin or Mucinex for cough, saline or Flonase NS for congestion, Tylenol for pain and fever. [facility] Other 10-28-2022 Evaluation note* Encounter Date Diagnosis [...] (suspected) exposure to covid-19 (ICD-10 - Z20.822) [facility] Other 10-27-2022 Evaluation note* Encounter Date Diagnosis Assessment Notes Treatment Notes Treatment Clinical Notes Aug, Encounter for immunization (ICD-10 - Z23) Patient presents today for COVID-19 vaccination booster. Patient pre-vaccination form answers reviewed. Patient denies current illness or allergic reaction to any component of a COVD-19 vaccine. Patient provided with copy of current EUA. [facility] Other 02-02-2022 Evaluation note* Encounter Date Diagnosis [...] Patient care instructions given in writting by [employer] [facility] document. Additional time spent conducting pre-visit phone call, screening for symptoms, instructions on social distancing, application and removal of PPE, and cleaning of examination room, equipment and supplies was preformed. Patient education given for testing methodology and results. Patient care instructions given in writting by [employer] [facility] [employer] document. [facility] Other 01-28-2022 Evaluation note* Encounter Date Diagnosis [...] Patient care instructions given in writting by [employer] [facility] [employer] document. [facility] Other 09-24-2021 Evaluation note* Encounter Date Diagnosis Assessment Notes Treatment Notes Treatment Clinical Notes Jul, Encounter for immunization (ICD-10 - Z23) Patient presents for COVID-19 vaccination #2. Pre-screening form answers evaluated with patient. Patient denies current illness or allergic reaction to component of COVID-19 vaccine. Patient provided with current copy of EUA. [facility] Other Evaluation noteNo assessment information available [facility] Work Phone: [email or web address] noteNo InformationNort [facility] Other evaluation note* Diagnosis Encounter for weight management Hormone disorder Unspecified endocrine disorder 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 documented in this encounter [facility] Healthcare[facility] note* Diagnosis Well woman exam with routine gynecological exam Routine gynecological examination documented in this encounter [facility] note* Diagnosis Onset Date Resolution Status Admit Date Hypercholesteremia acute Novemb er 2023 11:13am Wellness examination acute Nove mber 2023 11:13am [facility] Work Phone: [facility] general Narrative - Reported* Type Description Date Medical History Child X2 Natural Surgical History No know Surgical history Hospitalization History see above [facility] Other [facility] general Narrative - Reported* Type Description Date Medical History Child X2 Natural Surgical History No Surgical history information Hospitalization History see above [facility] Other [facility] general Narrative - Reported* Type Description Date Medical History Child X2 Natural Medical History Body mass index (BMI) of 25.0 to 29.9 Medical History Fatigue Medical History Hyperlipidemia, group A Medical History GARTH (generalized anxiety disorde r) Surgical History No know Surgical history Hospitalization History No know Hospitalization history [facility] Other Chief Complaint and Reason for Visit [...] examination October 18, 2024 11:13am Advance Directives No Advanced Directives Records Found Advance Directive Response Recorded Date/ Time Advance [...] Nasal turbinate hype rtrophy (J34.3) Referral Organization [facility] Nela russo Referring Provider First Name Robles Referring Provider Last Name Nela Referring Provider Specialty Internal Me melissa Referred Organization [facility] Referred Provider Robles Hernandez Referred Address ,[place], [place],[address] Referred Provider Specialty Otolaryngolo gy Referral Priority Routine Referral Appointment Date 2023-02-04 General Notes Rosangela Cruz 09:25:33 AM >received today, notes locked, insurance card attached, referral faxed Rosangela Cruz 01/29/2023 12:42:25 PM >Shannan at Dr. Rodriges office requested referral be faxed again to [phone]. done! Rosangela Cruz 02/05/2023 02:23:23 PM >notes being sent over now Rosangela Cruz 02/10/2023 08:41:31 AM >NOTES RECEIVED AND SENT FOR REVIEW Additional Source Comments REASON FOR VISIT (unrecogniz ed section and content) Reason Comments Adipex #5 Reason Comments [facility] Visit Care Teams (unrecognized sec tion and content) Team Status: Inactive Member Role Status Dates Liz Conteh MD Primary Care Provider Active DO DERRICK Crane Attending Provider Active Team Status: Active Member Role Status Dates Liz Conteh MD Primary Care Provider Active Team Status: Inactive Member Role Status Dates Liz Conteh MD Primary Care Provider Active Derick Timmons MD Attending Provider Active Team Status: Inactive Member Role Status Dates Liz Conteh MD Primary Care Provider Active Kiya Schaffer , HOG KILLER Attending Provider Active Team Status: Active Member Role Status Dates Robles Charles DO Primary Care Provider Active Team Status: Inactive Member Role Status Dates Deisy Villar PA-C Attending Provider Active Sta rt: January 07, 2024 End: January 07, 2024 Robles Charles DO Primary Care Provider Active Start: January 07, 2024 End: January 07, 2024 Assistant Project Manager Relationship Specialty Start Date End Date Robles Charles MD [address] [place] [phone] PCP - General Internal Medicine 07/30/23 Team Status: Inactive Member Role Status Dates Robles Charles DO Primary Care Provide r, Attending Provider Active Start: 2024 End: 2024 Team Status: Inactive Member Role Status Dates Robles Charles DO Primary Care Provider Active Start: May 03, 2024 End: May 03, 2024 Caro Chacon APRN NP-C Attending Provider Act alex Start: May 03, 2024 End: May 03, 2024 Team Status: Inactive Member Role Status Dates Robles Charles DO Primary Care Provide r, Attending Provider Active Start: August 29, 2024 End: August 29, 2024 Assistant Project Manager Relationship Specialty Start Date End Date Robles Charles MD [address] [place] [phone] PCP - General Internal Medicine 07/30/23 Deisy Villar PA [address] [place] [address] Dr [place], [id number] PCP - Medical [place] [employer] 11/30/23 11/29/99 Assistant Project Manager Relationship Specialty Start Date End Date Robles Charles MD [address] [place] [phone] PCP - General Internal Medicine 07/30/23 Deisy Villar PA [address] [place] [address] [place] [address] PCP - Medical [place] [employer] 11/30/23 11/29/99 Assistant Project Manager Relationship Specialty Start Date End Date Robles Charles MD [address] [place] [phone] PCP - General Internal Medicine 07/30/23 Deisy Villar PA [address] [place] [address] [place] [address] PCP - Medical [place] [employer] 11/30/23 11/29/99 Team Status: Inactive Member Role Status Dates Robles Charles DO Primary Care Provider Active Start: September 22, 2024 End: September 22, 2024 Delano Francis - [facility] , DO [facility] Attending Provider Active Start: September 22, 2024 End: September 22, 2024 Team Status: Active Member Role Status Dates Robles Charles DO Primary Care Provide r, Attending Provider Active Start: October 14, 2024 Team Status: Inactive Member Role Status Dates Robles Charles DO Primary Care Provide r, Attending Provider Active Start: October 18, 2024 End: October 18, 2024 Assistant Project Manager Relationship Specialty Start Date End Date Robles Charles MD [address] [place] [phone] PCP - General Internal Medicine 07/30/23 Deisy Villar PA [address] [place] [address] [place] [address] PCP - Medical [place] [employer] 11/30/23 11/29/99 Goals (unrecognized section and content) Goals may be documented in a n alternate section INFORMATION SOURCE (unrecogn ized section and content) DATE CREATED AUTHOR 09/02/2022 [facility] DATE CREATED AUTHOR AUTHOR'S ORGANIZ ATION 09/23/2024 [facility] DATE CREATED AUTHOR AUTHOR'S ORGANIZ ATION 01/10/2025 [facility] FOR RECORDS PERTAINING TO PATIENTS WHO ARE [...] BE BASED ON THE PRIMARY CLINICAL RECORDS. [facility]. provides no warranty or guarantee of the accuracy or completeness of information in this document.
[2025-01-13 10:35] LABS: Basophils Percent Auto 0.4 % (0.2-2.0); Eosinophils Absolute Auto 0.2 10^3/uL (0.0-0.7); Eosinophils Percent Auto 2.2 % (0.9-7.0); Hemoglobin 11.7 g/dL (12.0-16.0); Immature Granulocytes Abs Auto 0.03 10^3/uL (0.00-0.03); Immature Granulocytes Pct Auto 0.4 % (0.0-0.5); Lymphocytes Absolute Auto 1.6 10^3/uL (1.2-3.8); Lymphocytes Percent Auto 20.4 % (20.5-60.0); Mean Corpuscular HGB Conc 34.4 g/dL (29.9-35.2); Mean Corpuscular Hemoglobin 31.5 pg (26.7-34.0); Mean Corpuscular Volume 91.6 fL (81.0-99.0); Mean Platelet Volume 9.6 fL (9.5-13.5); Monocytes Absolute Auto 0.6 10^3/uL (0.3-0.8); Monocytes Percent Auto 7.2 % (1.7-12.0); Neutrophils Absolute Auto 5.6 10^3/uL (1.4-6.5); Neutrophils Percent Auto 69.4 % (43.0-75.0); Platelet Count 302 10^3/uL (150-450); Red Blood Count 3.71 10^6/uL (4.20-5.40); Red Cell Distribution Width 12.5 % (11.0-15.0)
[2025-01-13 11:08] LABS: Amphetamine Screen Urine NEGATIVE (NEGATIVE); Barbiturates Screen Urine NEGATIVE (NEGATIVE); Benzodiazepines Screen Urine NEGATIVE (NEGATIVE); Buprenorphine Screen Urine NEGATIVE (NEGATIVE); Cannabinoid Screen Urine NEGATIVE (NEGATIVE); Cocaine Screen Urine NEGATIVE (NEGATIVE); Methadone Screen Urine NEGATIVE (NEGATIVE); Methamphetamines Screen Urine NEGATIVE (NEGATIVE); Opiate Screen Urine NEGATIVE (NEGATIVE); Oxycodone Screen Urine NEGATIVE (NEGATIVE); Phencyclidine Screen Urine NEGATIVE (NEGATIVE); Tricyclic Antidepressant Urine NEGATIVE (NEGATIVE)
[2025-01-13 11:34] LABS: Estimated Average Glucose 105 mg/dL; Glycohemoglobin A1C 5.3 % (4.5-6.2)
[2025-01-14 06:11] LABS: HBsAg Screen Negative (Negative); HCV Ab Non Reactive (Non Reactive); HIV Ab/p24 Ag Screen Non Reactive (Non Reactive); Rubella Antibodies, IgG 1.54 index (Immune >0.99)
[2025-01-14 10:08] LABS: Rapid Plasma Reagin, Quant Non Reactive titer (NonRea<1:1)
== END 2025-01-13 10:04 | disposition home or self-care (01) ==
LOC: LAB 10:04
PROVIDERS: PCP Internal Medicine; Visit Provider Obstetrics & Gynecology
DX: Z34.01 Encounter for supervision of normal first pregnancy, first trimester (principal); N92.6 Irregular menstruation, unspecified
CPT/HCPCS: 36415; 80307; 83036; 85025; 86592; 86762; 86803; 86850; 86900; 86901; 87086; 87340; 87389

== ENCOUNTER 2025-03-02 12:12 | Outpatient (REF) | payer OTHER, SELFPAY | END 2025-03-02 12:13 | disposition home or self-care (01) | LOC: LAB 12:12 | PROVIDERS: PCP Internal Medicine; Visit Provider Physician Assistant | DX: Z01.419 Encounter for gynecological examination (general) (routine) without abnormal findings (principal) | CPT/HCPCS: 87624; 88175 ==

== ENCOUNTER 2025-03-20 14:56 | Outpatient (OUT) | payer OTHER, SELFPAY ==
--- NOTE | 2025-03-20 14:59 | US_ITS ---
The [address] [address] Patient Name: PHILLIP HERNANDEZ MRN: [id number] date: 1990 Sex: F Assigned Patient Location: US Current Patient Location: Accession/Order Number: [id number] Exam Date: 03/21/2025 09:18 Report Date: 03/21/2025 09:19 At the request of: ORLANDO VILLAR Procedure: US OB cervical length Ultrasound assessment of the cervical length The cervical length is 3.8 cm. The cervical os is closed. US/US OB cervical length IMPRESSION: #3.8 cm cervical length. Impression dictated by: Aguilar Durand M.D.03/21/2025 9:19 AM Dictation Location: [place] [address] Electronically authenticated by: [id number] Y Date: 03/21/2025 09:19
--- NOTE | 2025-03-20 14:59 | US_ITS ---
The [address] [address] Patient Name: PHILLIP HERNANDEZ MRN: [id number] date: 1990 Sex: F Assigned Patient Location: Current Patient Location: Accession/Order Number: [id number] Exam Date: 03/21/2025 13:12 Report Date: 03/21/2025 13:16 At the request of: ORLANDO VILLAR Procedure: US OB anatomy Obstetrical Ultrasound for Fetus greater than 14 weeks HISTORY: anatomy assessment heart rate is 144 bpm. The fetus is in breech presentation with longitudinal lie. The placenta is in a posterior position with low-lyingappearance. Amniotic fluid index is subjectively normal. The cervix has a length of 3.8cm. The estimated weight is 335 g. with percentile 70.6%. The ovaries are not visualized. No fluid identified in the cul-de-sac. Following anatomy identifiedthe lateral ventricles, cerebellum, posterior fossa, nose and lips, orbits, diaphragm, stomach, kidneys, abdominal cord insertion, bladder, umbilical arteries, three-vessel cord, spine, extremities. Suboptimal assessment of four-chamber heart and the right and left ventricular outflow tract. The biparietal diameter measures 4.6cm consistent with 19 weeks 6 days. Head circumference measures 17.6cm consistent with 20 weeks 0 days. Abdominal circumference measures 15.0cm consistent with 20 weeks 2 days. Femur length is 3.2cm consistent with 20 weeks 1 day. The average gestational age is 20 weeks 1 day. Estimated due date is 08/06/2025. somatic motion identified. US/US OB anatomy IMPRESSION: Single live intrauterine gestation 20 weeks 1 day. The anatomy as above. Suboptimal visualization of four-chamber heart and the right and left ventricular outflow tract. Impression dictated by: Aguilar Durand M.D.03/21/2025 1:16 PM Dictation Location: [place] Electronically authenticated by: [id number] Y Date: 03/21/2025 13:16
== END 2025-03-20 14:57 | disposition home or self-care (01) ==
LOC: US 14:56
PROVIDERS: PCP Internal Medicine; Visit Provider Physician Assistant
DX: Z36.89 Encounter for other specified antenatal screening (principal); Z3A.20 20 weeks gestation of pregnancy
CPT/HCPCS: 76805; 76817

== ENCOUNTER 2025-04-18 08:16 | Outpatient (OUT) | payer OTHER, SELFPAY ==
--- OUTSIDE RECORDS SUMMARY | 2025-04-18 08:21 | XMS_ITS | CCD ---
Author Organization [facility] CliniSywi Care Team Providers Care Size Maker Name Role Phone Subha Dillon Unavailable Elsi Mayer Unavailable MD Liz Conteh Primary Care Provider [phone] DO Delano Francis Attending Provider [phone] SITA, DR LUJAN Consulting Unavailable SITA, DR LUJAN Admitting Unavailable REQUEST, DR RAIN LISTED Primary Care Unavaila jt BUCKNER, DR LUJAN Attending Unavailable NELA, DR SEARS Attending Unavailable NELA, DR SEARS Consulting Unavailable NELA, DR SEARS Admitting Unavailable REQUEST, DR RAIN LISTED Primary Care Unavaila Kiya Gonsalves Unavailable MD Derick Timmons Attending Provider SHANNON Schaffer Attending Provider Robles Charles Unavailable MD Liz Conteh Primary Care Provider [phone] DO Delano Francis Attending Provider QUANG Villar Attending Provider DO Robles Charles Primary Care Provider [phone] Robles Charles MD Primary Care Provider QUANG Villar Attending Provider DO Robles Charles Primary Care Provider Deisy Pratt Unavailable DO Robles Charles Primary Care Provider Tito - DO Delano MEZA Attending Provider Tito Delano MEZA Admitting Unavailable Tito Delano MEZA Attending Unavailable Robles Charles Primary Care Unavailable Deisy Villar Admitting Unavailable Deisy Villar Attending Unavailable Robles Charles Primary Care Unavailable Robles Charles DO Primary Care Provider [phone] [facility] Delano CRESPO Attending Provider Robles Charles MD Primary Care Provider Robles Charles DO Primary Care Provider Robles Charles DO Primary Care Provider ÁNGEL BUCKNER Attending Unavailable ÁNGEL BUCKNER Attending Unavailable DEISY VILLAR Attending Unavailable ÁNGEL BUCKNER Attending Unavailable Allergies Allergy Classification Reported Allergen(s) Allergy Type Date of Onset Reaction(s) Facility (5 sources) Penicillin V Drug Allergy rash [facility] Other (1 source) Amoxicillin Drug Allergy 0 The [facility] Repository (1 source) Penicillins Drug allergy (disorder) The [facility] Repository (5 sources) Penicillin Drug Allergy rash [facility] Other (1 source) Substance with penicillin structure and antibacterial mechanism of action (substance) Drug allergy 3 PENICILLINS [facility] Other (20 sources) [facility] Drug [facility] 3 [facility] Healthcare (20 sources) Penicillin G Drug Allergy 3 Unknown [facility] Healthcare (1 source) Penicillins Drug allergy (disorder) 4 [facility] Repository Medications Current Medications Medication Drug Class(es) Dates Sig (Normalized) Sig (Original) aspirin 81 mg delayed release oral tablet (9 sources) Platelet Aggregation Inhibitor, Nonsteroidal Anti-inflammatory Drug take 1 tablet by mouth once daily aspirin 81 MG EC tablet Take 81 mg by mouth Daily Active doxycycline hyclate 100 mg oral capsule (6 sources) Tetracycline-class Drug Start: 01-06-2024 End: 01-13-2024 doxycycline (Vibramycin) [...] daily for 7 days Nov, Not-Taking fluticasone propionate 0.05 mg/actuat metered dose nasal spray (20 sources) Corticosteroid Start: 03-02-2025 End: 03-02-2026 take 1 spray(s) nasal route once daily fluticasone (Flonase Allergy Relief) 50 MCG/ACT nasal spray Indications: Allergy, sequela Administer 1 spray into each nostril Daily Shake gently. Before first use, prime pump. After use, clean tip and replace cap. 16 g 12 03/02/2025 03/02/2026 Active Start: 01-22-2023 take 1-2 spray(s) na courtney route once daily at bedtime FLONASE 50 mcg 1-2 sprays each NOSTRIL nasal QHS for 30 days Dec, Active take 1 spray(s) nasa l route once daily fluticasone (Flonase) 50 MCG/ACT [...] omeprazole 40 mg delayed release oral capsule (20 sources) Proton Pump Inhibitor Start: 08-16-2024 take 1 capsule by mouth once daily at breakfast Omeprazole 40 mg capsule,delayed release(DR/EC) Active 0 .ROUTE .COMPLEX 90 August 16, 2024 4:42pm TAKE 1 CAPSULE BY MOUTH ONCE DAILY on an empty stomach 30 MINUTES prior TO breakfast Start: 02-22-2024 End: 02-25-2026 take 1 capsule by mouth before mealtime omeprazole (PriLOSEC) [address] capsule Indications: Heartburn Take 1 capsule (40 mg) by mouth in the morning. Take before meals. 30 capsule 11 03/02/2025 02/25/2026 Active End: 01-06-2024 Omeprazole Magnesium (PriLOS EC) 2.5 MG pack PriLOSEC 0 01/06/2024 Discontinued ondansetron 4 mg disintegrating oral tablet (10 sources) Serotonin-3 Receptor Antagonist Start: 02-21-2025 End: 03-23-2025 take 1 tablet by mouth every six hours as needed for nausea and vomiting and nausea and nausea ondansetron ODT (Zofran-ODT) 4 MG disintegrating tablet Indications: Nausea Take 1 tablet (4 mg) by mouth every 6 (six) hours if needed for nausea or vomiting 30 tablet 3 02/21/2025 03/23/2025 Active Start: 12-22-2024 End: 02-02-2025 take 1 tablet by mouth every six hours as needed for nausea and vomiting and nausea and nausea ondansetron ODT (Zofran-ODT) 4 MG disintegrating tablet Indications: Nausea Take 1 tablet (4 mg) by mouth every 6 (six) hours if needed for nausea or vomiting 30 tablet 2 12/22/2024 02/02/2025 Active Pre- (10 sources) Pre- Not-Ta flakita Pre-Mack Active MV-Min-Fe Fum-FA-DH A ( 1 PO) (19 sources) MV-Min- Fe Fum-FA-DHA ( 1 PO) Take 1 tablet by mouth Daily Active Vit-Fe Fumarate-FA ( Vitamin) 27-0.8 MG tablet (1 source) Vit-Fe Fumarate-FA ( Vitamin) 27-0.8 MG tablet Vitamin 0 Active Progesterone 200 MG supposit ory (6 sources) Start: 01-06-2025 End: 02-05-2025 Progesterone 200 MG supposit ory Indications: History of miscarriage Insert 200 mg into the vagina at bedtime Insert suppository vaginally every night at bedtime until 12 weeks gestation 30 suppository 3 01/06/2025 02/05/2025 Active Start: 12-09-2024 End: 01-08-2025 Progesterone 200 MG [...] Active Problems Problem Classification Problem Date Documented Da te Episodic/Chronic Acute and chronic tonsillitis (4 sources) Acute tonsillitis, unspecified; Translations: [Tonsillitis] Episodic Administrative/social admission (1 source) Patient encounter status; Translations: [...] Chronic Immunizations and screening for infectious disease (7 sources) Encounter for immunization; Translations: [Encounter for screening for other viral diseases] Onset: 1 Resolved: 2 Episodic Malaise and fatigue (9 sources) Other fatigue; Translations: [Fatigue] Onset: 2 Episodic Other endocrine disorders (1 source) Disorder of endocrine system; Translations: [Endocrine disorder, unspecified] 01-06-2024 Episodic Other female genital disorders (2 sources) Vaginal discharge; Translations: [Other specified noninflammatory disorders of vagina] 03-02-2025 Episodic Other gastrointestinal disorders (2 sources) Heartburn; Translations: [Heartburn] 03-02-2025 Episodic Other injuries and conditions due to external causes (2 sources) Allergic condition; Translations: [Allergy, unspecified, sequela] 03-02-2025 Episodic Other nutritional; endocrine; and metabolic disorders (5 sources) Overweight; Translations: [Overweight] Episodic Other nutritional; endocrine; and metabolic disorders (1 source) Overweight Episodic Other and delivery including normal (6 sources) Second trimester ; Translations: [Encounter for supervision of normal , unspecified, second trimester] 02-02-2025 Episodic Other screening for suspected conditions (not mental disorders or infectious disease) (10 sources) Encounter for screening for malignant neoplasm of cervix; Translations: [Patient encounter status] Onset: 2 Episodic Other upper respiratory disease (5 sources) [...] unspecified; Translations: [Acute maxillary sinusitis, unspecified] Episodic Prolapse of female genital organs (2 sources) Incomplete uterovaginal prolapse; Translations: [Incomplete uterovaginal prolapse] 03-30-2025 Chronic Residual codes; unclassified (2 sources) Gestation period, 13 weeks; Translations: [13 weeks gestation of ] 02-02-2025 Episodic Residual codes; unclassified (2 sources) Gestation period, 17 weeks; Translations: [17 weeks gestation of ] 03-02-2025 Episodic Residual codes; unclassified (2 sources) Gestation period, 21 weeks; Translations: [21 weeks gestation of ] 03-30-2025 Episodic Unclassified (1 source) Endocrine disorder, unspecified; Translations: [Endocrine disorder, unspecified] Onset: 4 Past or Other Problems Problem Classification Problem Date Documented Da te Episodic/Chronic Unclassified (1 source) Contact with and (suspected) exposure to covid-19 Z20.822 Viral infection (1 source) COVID-19 Onset: 12-27-2021 Resolved: 12-27-2021 Results Test Name Value Interpretation Reference Range Facility Urinalysis macro (dipstick) panel (U)on 03-30-2025 Bilirubin, UA Negative Negative - 4(70) +++ mg/dL [facility] Blood, UA Negative Negative - 50 Ezequiel/mcL [facility] Clarity, UA Clear [facility] Color, UA Yellow [facility] Glucose, UA Negative Negative - 2000(110) ++++ mg/dL [facility] Interpretation and review of laboratory results Normal [facility] Ketones, UA Negative Negative - 160(16) ++++ mg/dL [facility] Leukocytes, UA Negative Negative - 500+++ Jason/mcL [facility] Nitrite, UA Negative Negative - Positive [facility] pH, UA 7 5 - 9 [facility] Protein, UA Negative Negative - 2000(20) ++++ mg/dL [facility] Spec Grav, UA 1.02 1 - 1.03 [facility] Urobilinogen, UA 0.2 0.2 - 12 mg/dL [facility] OB ANATOMYon 03-21-2025 [place] [address] Ultrasound Report Signed Patient: ANGELA REYES MR#: [id number] : 1990 Acct:[id number] Age/Sex: 35 / F ADM Date: 03/20/25 Loc: US Attending Dr: Deisy Villar Ordering Physician: Deisy Villar Date of Service: 03/20/25 Procedure(s): US OB anatomy Accession Number(s): [id number] cc: Deisy Villar; Robles Charles D.O. [place] [id number] Patient Name: ANGELA REYES MRN: [id number]:[id number] date: 1990 Sex: F Assigned Patient Location: Current Patient Location: Accession/Order Number: [id number] Exam Date: 03/21/2025 13:12 Report Date: 03/21/2025 13:16 At the request of: DEISY VILLAR Procedure: US OB anatomy Obstetrical Ultrasound for Fetus greater than 14 weeks HISTORY: anatomy assessment heart rate is 144 bpm. The fetus is in breech presentation with longitudinal lie. The placenta is in a posterior position with low-lyingappearance. Amniotic fluid index is subjectively normal. The cervix has a length of 3.8cm. The estimated weight is 335 g. with percentile 70.6%. The ovaries are not visualized. No fluid identified in the cul-de-sac. Following anatomy identifiedthe lateral ventricles, cerebellum, posterior fossa, nose and lips, orbits, diaphragm, stomach, kidneys, abdominal cord insertion, bladder, umbilical arteries, three-vessel cord, spine, extremities. Suboptimal assessment of four-chamber heart and the right and left ventricular outflow tract. The biparietal diameter measures 4.6cm consistent with 19 weeks 6 days. Head circumference measures 17.6cm consistent with 20 weeks 0 days. Abdominal circumference measures 15.0cm consistent with 20 weeks 2 days. Femur length is 3.2cm consistent with 20 weeks 1 day. The average gestational age is 20 weeks 1 day. Estimated due date is 08/06/2025. somatic motion identified. US/US OB anatomy IMPRESSION: Single live intrauterine gestation 20 weeks 1 day. The anatomy as above. Suboptimal visualization of four-chamber heart and the right and left ventricular outflow tract. Impression dictated by: Aguilar Durand M.D.03/21/2025 1:16 PM Dictation Location: [place] [address] Electronically authenticated by: [id number] Y Date: 03/21/2025 13:16 Dictated By: Aguilar Durand D.O. Signed By: 03/21/25 1319 DD/ 1316 TD/TT: Adolescent Medicine Specialist: [facility] Radiology Radiologbrittanie pa MD - 03/21/2025 [place] [address] Ultrasound Report Signed Patient: ANGELA REYES MR#: [id number] : 1990 Acct:[id number] Age/Sex: 35 / F ADM Date: 03/20/25 Loc: US Attending Dr: Deisy Villar Ordering Physician: Deisy Villar Date of Service: 03/20/25 Procedure(s): US OB anatomy Accession Number(s): [id number] cc: Deisy Villar; Robles Charles D.O. The [address] [address] Patient Name: ANGELA REYES MRN: [facility]:[id number] date: 1990 Sex: F Assigned Patient Location: US Current Patient Location: Accession/Order Number: [id number] Exam Date: 03/21/2025 13:12 Report Date: 03/21/2025 13:16 At the request of: DEISY VILLAR Procedure: US OB anatomy Obstetrical Ultrasound for Fetus greater than 14 weeks HISTORY: anatomy assessment heart rate is 144 bpm. The fetus is in breech presentation with longitudinal lie. The placenta is in a posterior position with low-lyingappearance. Amniotic fluid index is subjectively normal. The cervix has a length of 3.8cm. The estimated weight is 335 g. with percentile 70.6%. The ovaries are not visualized. No fluid identified in the cul-de-sac. Following anatomy identifiedthe lateral ventricles, cerebellum, posterior fossa, nose and lips, orbits, diaphragm, stomach, kidneys, abdominal cord insertion, bladder, umbilical arteries, three-vessel cord, spine, extremities. Suboptimal assessment of four-chamber heart and the right and left ventricular outflow tract. The biparietal diameter measures 4.6cm consistent with 19 weeks 6 days. Head circumference measures 17.6cm consistent with 20 weeks 0 days. Abdominal circumference measures 15.0cm consistent with 20 weeks 2 days. Femur length is 3.2cm consistent with 20 weeks 1 day. The average gestational age is 20 weeks 1 day. Estimated due date is 08/06/2025. somatic motion identified. US/US OB anatomy IMPRESSION: Single live intrauterine gestation 20 weeks 1 day. The anatomy as above. Suboptimal visualization of four-chamber heart and the right and left ventricular outflow tract. Impression dictated by: Aguilar Durand M.D.03/21/2025 1:16 PM Dictation Location: [place] [address] Electronically authenticated by: [id number] Y Date: 03/21/2025 13:16 Dictated By: Aguilar Durand D.O. Signed By: 03/21/25 1319 DD/ 1316 TD/TT: Adolescent Medicine Specialist: [facility] Radiology Study observation (narrative) [facility] US OB ANATOMYOrdered By: Rad iologdarwin Radiology on 03-21-2025 [facility] Work Phone: US OB CERVICAL LENGTHon 03-01 [place] [address] Ultrasound Report Signed Patient: ANGELA REYES MR#: [id number] : 1990 Acct:[id number] Age/Sex: 35 / F ADM Date: 03/20/25 Loc: US Attending Dr: Deisy Villar Ordering Physician: Deisy Villar Date of Service: 03/20/25 Procedure(s): US OB cervical length Accession Number(s): [id number] cc: Deisy Villar; Robles Charles D.O. The [place] [id number] Patient Name: ANGELA REYES MRN: [facility]:[id number] date: 1990 Sex: F Assigned Patient Location: US Current Patient Location: Accession/Order Number: [id number] Exam Date: 03/21/2025 09:18 Report Date: 03/21/2025 09:19 At the request of: DEISY VILLAR Procedure: US OB cervical length Ultrasound assessment of the cervical length The cervical length is 3.8 cm. The cervical os is closed. US/US OB cervical length IMPRESSION: #3.8 cm cervical length. Impression dictated by: Aguilar Durand M.D.03/21/2025 9:19 AM Dictation Location: [place] [address] Electronically authenticated by: [id number] Date: 03/21/2025 09:19 Dictated By: Aguilar Durand D.O. Signed By: 03/21/25921 DD/ 8 TD/TT: Adolescent Medicine Specialist: [facility] Radiology, Radiologi MD ember - 03/21/2025 [place] [address] Ultrasound Report Signed Patient: ANGELA REYES MR#: [id number] : 1990 Acct:[id number] Age/Sex: 35 / F ADM Date: 03/20/25 Loc: US Attending Dr: Deisy Villar Ordering Physician: Deisy Villar Date of Service: 03/20/25 Procedure(s): US OB cervical length Accession Number(s): [id number] cc: Deisy Villar; Robles Charles D.O. The [place] [id number] Patient Name: ANGELA REYES MRN: [id number]:[id number] date: 1990 Sex: F Assigned Patient Location: US Current Patient Location: Accession/Order Number: [id number] Exam Date: 03/21/2025 09:18 Report Date: 03/21/2025 09:19 At the request of: DEISY VILLAR Procedure: US OB cervical length Ultrasound assessment of the cervical length The cervical length is 3.8 cm. The cervical os is closed. US/US OB cervical length IMPRESSION: #3.8 cm cervical length. Impression dictated by: Aguilar Durand M.D.03/21/2025 9:19 AM Dictation Location: [place] [address] Electronically authenticated by: [id number] Y Date: 03/21/2025 09:19 Dictated By: Aguilar Durand D.O. Signed By: 03/21/25921 DD/ 8 TD/TT: Adolescent Medicine Specialist: [facility] Radiology Study observation (narrative) [facility] US OB CERVICAL LENGTHOrdered By: Radiologist Radiology on 03-21-2025 [facility] Work Phone: IGP,APTIMA HPV,AGE GDLNon AGE GDLN ACOG TESTING Note . [facility] Comment on above: TESTS RESULT FLAG UN ITS REF RANGE LAB Clinician Provided Cytology Information Source.............Cervix Other.............. No. of containers..01 ThinPrep Vial Age Algo ACOG Lara... 30 FLAG LEGEND: L-Low Normal,H-High Normal,LL-Alert Low,HH-Alert High <-Panic Low,>-Panic High,A-Abnormal,AA-Critical Abnormal Performed at: 01 =[address] [address] Ilana Heath MD, HPV APTIMA Negative Negative [facility] Comment on above: This nucleic acid am plification test detects fourteen high- risk HPV types (16,18,31,33,35,39,45,51,52,56,58,59,66,68) without differentiation. Performed at: =[address] [id number] Supervisor Pre Wave: Ilana Heath MD, Phone: [phone] Performed at: [address] [id number] Supervisor Pre Wave: Ilana Haeth MD, Phone: [phone] IGP, APTIMA HPV, RFX 16/18,45 Note . [facility] Comment on above: TESTS RESULT FLAG UN ITS REF RANGE LAB DIAGNOSIS: 02 NEGATIVE FOR INTRAEPITHELIAL LESION OR MALIGNANCY. THIS SPECIMEN WAS RESCREENED PART OF OUR PEDICAB DRIVER PROGRAM. Specimen adequacy: 02 Satisfactory for evaluation. No endocervical component is identified. Performed by: 03 Eugenia Kennedy, Medical Manager ([facility]) QC reviewed by: 02 Meredith Chávez, Automobile Body Repairer Helper . 02 Note: Note 02 The Pap [...] <-Panic Low,>-Panic High,A-Abnormal,AA-Critical Abnormal Performed at: 02 [address] [facility] [address] [address] Ilana Heath MD, 03 KWCYT [facility] [place] [facility] [address] [place] [address] Lloyd Kim MD, SPATULA-ALONE CERVIX [facility] RECURRENT VAGINITIS (HTRX)on 03-03-2025 ATOPOBIUM VAGINAE 0 [facility] ATOPOBIUM VAGINAE Not detected [facility] BVAB 2,3 (BACTERIAL VAGINOSIS ASSOCIATED BACTERIA 2, 3); MOBILUNCUS SPP 0 [facility] BVAB 2,3 (BACTERIAL VAGINOSIS ASSOCIATED BACTERIA 2, 3); MOBILUNCUS SPP Not detected [facility] ANEUDY ALBICANS, PARAPSILOSIS, TROPICALIS 0 [facility] ANEUDY ALBICANS, PARAPSILOSIS, TROPICALIS Not detected [facility] ANEUDY GLABRATA 0 [facility] ANEUDY GLABRATA Not detected [facility] ANEUDY KRUSEI 0 [facility] ANEUDY KRUSEI Not detected [facility] CHLAMYDIA TRACHOMATIS 0 [facility] CHLAMYDIA TRACHOMATIS Not detected [facility] GARDNERELLA VAGINALIS 0 [facility] GARDNERELLA VAGINALIS Not detected N [facility] MEGASPHAERA (TYPES 1, 2) 0 [facility] MEGASPHAERA (TYPES 1, 2) Not detected [facility] MYCOPLASMA GENITALIUM 0 [facility] MYCOPLASMA GENITALIUM Not detected N [facility] NEISSERIA GONORRHOEAE 0 [facility] NEISSERIA GONORRHOEAE Not detected [facility] TRICHOMONAS VAGINALIS 0 [facility] TRICHOMONAS VAGINALIS Not detected N [facility] Urinalysis macro (dipstick) panel (U)on 03-02-2025 Bilirubin, UA Negative Negative - 4(70) +++ mg/dL [facility] Blood, UA Negative Negative - 50 Ezequiel/mcL [facility] Clarity, UA Clear [facility] Color, UA Yellow [facility] Glucose, UA Negative Negative - 1999(110) ++++ mg/dL [facility] Interpretation and review of laboratory results Normal [facility] Ketones, UA Negative Negative - 160(16) ++++ mg/dL [facility] Leukocytes, UA Negative Negative - 500+++ Jason/mcL [facility] Nitrite, UA Negative Negative - Positive [facility] pH, UA 7 5 - 9 [facility] Protein, UA Negative Negative - 1999(20) ++++ mg/dL [facility] Spec Grav, UA 1.02 1 - 1.03 [facility] Urobilinogen, UA 0.2 0.2 - 12 mg/dL [facility] Urinalysis macro (dipstick) panel (U)on 02-02-2025 Bilirubin, UA Negative Negative - 4(70) +++ mg/dL [facility] Blood, UA Negative Negative - 50 Ezequiel/mcL [facility] Clarity, UA Clear [facility] Color, UA Yellow [facility] Glucose, UA Negative Negative - 1999(110) ++++ mg/dL [facility] Interpretation and review of laboratory results Abnormal [facility] Ketones, UA Negative Negative - 160(16) ++++ mg/dL [facility] Leukocytes, UA Trace Negative - 500+++ Jason/mcL [facility] Nitrite, UA Negative Negative - Positive [facility] pH, UA 6 5 - 9 [facility] Protein, UA Negative Negative - 1999(20) ++++ mg/dL [facility] Spec Grav, UA 1.025 1 - 1.03 [facility] Urobilinogen, UA 0.2 0.2 - 12 mg/dL [facility] ALL CBC WITH AUTO DIFFon BASOPHILS ABSOLUTE AUTO 0 N [facility] Basophils/100 WBC (Bld) 0.4 % 0.2 - 2.0 % [facility] Eosinophils/100 WBC (Bld) 2.2 % 0.9 - 7.0 % [facility] Erythrocyte distribution width (RBC) [Ratio] 12.5 % 11.0 - 15.0 % [facility] Hematocrit (Bld) [Volume fraction] 34 % Low 36.0 - 48.0 % [facility] Hemoglobin (Bld) [Mass/Vol] 11.7 g/dL Low 12.0 - 16.0 g/dL [facility] IMMATURE GRANULOCYTES ABS AUTO 0.03 [facility] Immature granulocytes/100 WBC (Bld) 0.4 % 0.0 - 0.5 % [facility] Interpretation and review of laboratory results Abnormal [facility] LYMPHOCYTES ABSOLUTE AUTO 1.6 [facility] Lymphocytes/100 WBC (Bld) 20.4 % Low 20.5 - 60.0 % [facility] MCH (RBC) [Entitic mass] 31.5 pg 26.7 - 34.0 pg [facility] MCHC (RBC) [Mass/Vol] 34.4 g/dL 29.9 - 35.2 g/dL [facility] MCV (RBC) [Entitic vol] 91.6 fL 81.0 - 99.0 fL [facility] MONOCYTES ABSOLUTE AUTO 0.6 N [facility] Monocytes/100 WBC (Bld) 7.2 % 1.7 - 12.0 % [facility] NEUTROPHILS ABSOLUTE AUTO 5.6 [facility] Neutrophils/100 WBC (Bld) 69.4 % 43.0 - 75.0 % [facility] Platelet mean volume (Bld) [Entitic vol] 9.6 fL 9.5 - 13.5 fL [facility] EO # 0.2 [facility] PLT 302 [facility] RBC 3.71 Low [facility] WBC 8 [facility] US OB TRANSVAGINALon 025 US OB TRANSVAGINAL [...] II, MD, PHD at 09-Jan-2025 09:10:54 AM [facility] Normal Not Available Comment on above: Order Comment: US OB TRANSVAGINAL No LMP recorded. [facility] PREG QUANT HCGon 025 HCG QUANTITATIVE 37142 mIU/mL [facility] Comment on above: 5-50 0.2-1 WEEK 50-500 1-2 WEEKS 100-5,000 2-3 WEEKS 500-10,000 3-4 WEEKS 1,000-50,000 4-5 WEEKS 10,000-100,000 5-6 WEEKS 15,000-200,000 6-8 WEEKS 10,000-100,000 2-3 MONTHS [facility] PREG QUANT HCGon 025 HCG QUANTITATIVE 46672 mIU/mL [facility] Comment on above: 5-50 0.2-1 WEEK 50-500 1-2 WEEKS 100-5,000 2-3 WEEKS 500-10,000 3-4 WEEKS 1,000-50,000 4-5 WEEKS 10,000-100,000 5-6 WEEKS 15,000-200,000 6-8 WEEKS 10,000-100,000 2-3 MONTHS [facility] Automated basophil %Ordered By: Delano Tito on 09-22-2024 Basophils/100 WBC (Bld) 0.6 % Normal . [facility] Comment on above: Performed By: #### D HEAS, LC T4, [id number], SEROTON, TEST F + T, T3R, THYGLOB AB, ESTRADIOL, TPO, SHBG, ESTRONE, INSULIN, PROG #### [facility] , #### T4F, TRISTEN, TSH3, A1C WTH eA, FILIBERTO, GLU, T3F #### [address] Automated basophil countOrde red By: Delano Francis on 09-22-2024 Basophils (Bld) [#/Vol] 0.0 10*3/uL Normal 0.0-0.2 [facility] Comment on above: Result Comment: PERF ORMED BY: [place] [address] PATHOLOGIST SOLE TACKER JOSE GOEL M.D. Performed By: #### D DANIELLEAS, LC T4, [id number], SEROTON, TEST F + T, T3R, THYGLOB AB, ESTRADIOL, TPO, SHBG, ESTRONE, INSULIN, PROG #### [facility] , #### T4F, TRISTEN, TSH3, A1C WTH eA, FILIBERTO, GLU, T3F #### [address] Automated blood monocyte cou ntOrdered By: Delano Francis on 09-22-2024 Monocytes (Bld) [#/Vol] 0.4 10*3/uL Normal 0.0-0.8 [facility] Comment on above: Performed By: #### D HEAS, LC T4, [id number], SEROTON, TEST F + T, T3R, THYGLOB AB, ESTRADIOL, TPO, SHBG, ESTRONE, INSULIN, PROG #### [facility] , #### T4F, TRISTEN, TSH3, A1C WTH eA, FILIBERTO, GLU, T3F #### [address] [place] [address] [place] Automated eosinophil %Ordere d By: Delano Francis on 09-22-2024 Eosinophils/100 WBC (Bld) 1.7 % Normal . [facility] Comment on above: Performed By: #### D HEAS, LC T4, [id number], SEROTON, TEST F + T, T3R, THYGLOB AB, ESTRADIOL, TPO, SHBG, ESTRONE, INSULIN, PROG #### [facility] , #### T4F, TRISTEN, TSH3, A1C WTH eA, FILIBERTO, GLU, T3F #### [address] Automated eosinophil countOr dered By: Delano Francis on 09-22-2024 Eosinophils (Bld) [#/Vol] 0.1 10*3/uL Normal 0.0-0.45 [facility] Comment on above: Performed By: #### D HEAS, LC T4, [id number], SEROTON, TEST F + T, T3R, THYGLOB AB, ESTRADIOL, TPO, SHBG, ESTRONE, INSULIN, PROG #### [facility] , #### T4F, TRISTEN, TSH3, A1C WTH eA, FILIBERTO, GLU, T3F #### [address] Automated monocyte %Ordered By: Delano Francis on 09-22-2024 Monocytes/100 WBC (Bld) 8.7 % Normal . [facility] Comment on above: Performed By: #### D HEAS, LC T4, [id number], SEROTON, TEST F + T, T3R, THYGLOB AB, ESTRADIOL, TPO, SHBG, ESTRONE, INSULIN, PROG #### [facility] , #### T4F, TRISTEN, TSH3, A1C WTH eA, FILIBERTO, GLU, T3F #### [address] Automated neutrophil %Ordere d By: Delano Francis on 09-22-2024 Neutrophils/100 WBC (Bld) 63.7 % Normal . [facility] Comment on above: Performed By: #### D HEAS, LC T4, [id number], SEROTON, TEST F + T, T3R, THYGLOB AB, ESTRADIOL, TPO, SHBG, ESTRONE, INSULIN, PROG #### [facility] , #### T4F, TRISTEN, TSH3, A1C WTH eA, FILIBERTO, GLU, T3F #### [facility] [address] Basophils Auto (Bld) [#/Vol] Ordered By: Delano Francis on 09-22-2024 Basophils (Bld) [#/Vol] Automated basophil count 0.0-0.2 [facility] Basophils/100 WBC Auto (Bld) Ordered By: Delano Francis on 09-22-2024 Basophils/100 WBC (Bld) Automated basophil % . [facility] Calcium [Mass/volume] in Ser um or PlasmaOrdered By: Delano Francis on 09-22-2024 Calcium [Mass/Vol] 9.4 mg/dL Normal 8.6-10.3 [facility] Comment on above: Performed By: #### D VENITA, LC T4, [id number], SEROTON, TEST F + T, T3R, THYGLOB AB, ESTRADIOL, TPO, SHBG, ESTRONE, INSULIN, PROG #### [facility] , #### T4F, TRISTEN, TSH3, A1C WTH eA, FILIBERTO, GLU, T3F #### [address] Calcium [Mass/Vol] Calcium [Mass/volume ] in Serum or Plasma 8.6-10.3 [facility] Carbon dioxide, total [Moles /volume] in Serum or PlasmaOrdered By: Delano Francis on 09-22-2024 CO2 [Moles/Vol] 29.2 mmol/L Normal 21.0-31.0 [facility] Comment on above: Performed By: #### D HEAS, LC T4, [id number], SEROTON, TEST F + T, T3R, THYGLOB AB, ESTRADIOL, TPO, SHBG, ESTRONE, INSULIN, PROG #### [facility] , #### T4F, TRISTEN, TSH3, A1C WTH eA, FILIBERTO, GLU, T3F #### [address] CO2 [Moles/Vol] Carbon dioxide, tota l [Moles/volume] in Serum or Plasma 21.0-31.0 [facility] Chloride [Moles/volume] in S stevo or PlasmaOrdered By: Delano Francis on 09-22-2024 Chloride [Moles/Vol] 105 mmol/L Normal [address] [place] [address] Comment on above: Performed By: #### D HEAS, LC T4, [id number], SEROTON, TEST F + T, T3R, THYGLOB AB, ESTRADIOL, TPO, SHBG, ESTRONE, INSULIN, PROG #### [facility] , #### T4F, TRISTEN, TSH3, A1C WTH eA, FILIBERTO, GLU, T3F #### [address] Chloride [Moles/Vol] Chloride [Moles/vol ume] in Serum or Plasma [address] [place] [address] Cholesterol [Mass/volume] in Serum or PlasmaOrdered By: Delano Francis on 09-22-2024 Cholesterol [Mass/Vol] 217 mg/dL High 140-[address] [facility] Comment on above: Chol less than 200 m g/dl low riskChol 201-239 mg/dl borderline riskChol 240 mg/dl and greater high risk Result Comment: Chol less than 200 mg/dl low risk Chol 201-239 mg/dl borderline risk Chol 240 mg/dl and greater high risk Performed By: #### D HEAS, LC T4, [id number], SEROTON, TEST F + T, T3R, THYGLOB AB, ESTRADIOL, TPO, SHBG, ESTRONE, INSULIN, PROG #### [facility] , #### T4F, TRISTEN, TSH3, A1C WTH eA, FILIBERTO, GLU, T3F #### [facility] [address] [place] [address] Cholesterol [Mass/Vol] Cholesterol [Mass/volume] in Serum or Plasma High 140-200 [facility] Comment on above: Chol less than 200 m g/dl low riskChol 201-239 mg/dl borderline riskChol 240 mg/dl and greater high risk Cholesterol in HDL [Mass/vol ume] in Serum or PlasmaOrdered By: Delano Francis on 09-22-2024 Cholesterol in HDL [Mass/Vol] Serum or plasma high density lipoprotein (HDL) cholesterol measurement 23-92 [facility] Comment on above: HDL CHOL ATP-III CLA SSIFICATION Cardiovascular RiskHDL > or equal to 60 mg/dL LOWHDL < 40 mg/dL HIGH Cholesterol in LDL Calc [Mas s/Vol]Ordered By: Delano Francis on 09-22-2024 Cholesterol in LDL [Mass/Vol] 148 mg/dL High 0-100 [facility] Comment on above: LDL ATP III CLASSIFI CATIONLDL less than 100 mg/dL OptimalLDL 100-129 mg/dL Near or above optimalLDL 130-159 mg/dL Borderline highLDL 160-189 mg/dL HighLDL greater than 189 mg/dL Very high Cholesterol in LDL [Mass/Vol] Cholesterol in LDL [Mass/volume] in Serum or Plasma by calculation High 0-100 [facility] Comment on above: LDL ATP III CLASSIFI CATIONLDL less than 100 mg/dL OptimalLDL 100-129 mg/dL Near or above optimalLDL 130-159 mg/dL Borderline highLDL 160-189 mg/dL HighLDL greater than 189 mg/dL Very high Cholesterol in VLDL Calc [Ma ss/Vol]Ordered By: Delano Francis on 09-22-2024 Cholesterol in VLDL [Mass/Vol] 10 mg/dL [facility] Cholesterol in VLDL [Mass/Vol] Cholesterol in VLDL [Mass/volume] in Serum or Plasma by calculation [facility] Creatinine [Mass/volume] in Serum or PlasmaOrdered By: Delano Francis on 09-22-2024 Creatinine [Mass/Vol] 0.73 mg/dL Normal 0.60-1.20 [facility] Comment on above: Performed By: #### D HESUE, JOSSE T4, [id number], SEROTON, TEST F + T, T3R, THYGLOB AB, ESTRADIOL, TPO, SHBG, ESTRONE, INSULIN, PROG #### [facility] , #### T4F, TRISTEN, TSH3, A1C WTH eA, FILIBERTO, GLU, T3F #### [address] Creatinine [Mass/Vol] Creatinine [Mass/v olume] in Serum or Plasma 0.60-1.20 [facility] Employee Basic Metabolic Olvera anastacio 09-22-2024 GFR/1.73 sq M.predicted MDRD (S/P/Bld) [Vol rate/Area] mL/min/{1.73_m2} Normal [facility] Comment on above: Performed By: #### D HEAS, LC T4, [id number], SEROTON, TEST F + T, T3R, THYGLOB AB, ESTRADIOL, TPO, SHBG, ESTRONE, INSULIN, PROG #### [facility] , #### T4F, TRISTEN, TSH3, A1C WTH eA, FILIBERTO, GLU, T3F #### [address] Employee Complete Blood Coun [facility] 09-22-2024 Mean Corpuscular HGB Conc 34.2 g/dL Normal 32.0-35.0 [facility] Comment on above: Performed By: #### D HEAS, LC T4, [id number], SEROTON, TEST F + T, T3R, THYGLOB AB, ESTRADIOL, TPO, SHBG, ESTRONE, INSULIN, PROG #### [facility] , #### T4F, TRISTEN, TSH3, A1C WTH eA, FILIBERTO, GLU, T3F #### [address] NRBC% 0.0 /100{WBC} Normal 0-0.5 [facility] Comment on above: Performed By: #### D HEAS, LC T4, [id number], SEROTON, TEST F + T, T3R, THYGLOB AB, ESTRADIOL, TPO, SHBG, ESTRONE, INSULIN, PROG #### [facility] , #### T4F, TRISTEN, TSH3, A1C WTH eA, FILIBERTO, GLU, T3F #### [facility] [address] Employee Lipid Profileon LDL Cholesterol,Calculated 148 mg/dL High 0-100 [facility] Comment on above: Result Comment: LDL ATP III CLASSIFICATION LDL less than 100 mg/dL Optimal LDL 100-129 mg/dL Near or above optimal LDL 130-159 mg/dL Borderline high LDL 160-189 mg/dL High LDL greater than 189 mg/dL Very high Performed By: #### D HEAS, LC T4, [id number], SEROTON, TEST F + T, T3R, THYGLOB AB, ESTRADIOL, TPO, SHBG, ESTRONE, INSULIN, PROG #### [facility] , #### T4F, TRISTEN, TSH3, A1C WTH eA, FILIBERTO, GLU, T3F #### [facility] [address] Triglyceride w/Reflex 52 mg/dL Normal 0-149 [facility] Comment on above: Result Comment: TRIG ATP III CLASSIFICATION TRIG less than 150 mg/dL Normal TRIG 150-199 mg/dL Borderline high TRIG 200-500 mg/dL High TRIG greater than 500 mg/dL Very high Standard traceable to the Center for Disease Conrtrol and Prevention (CDC) test method. Performed By: #### D HEAS, LC T4, [id number], SEROTON, TEST F + T, T3R, THYGLOB AB, ESTRADIOL, TPO, SHBG, ESTRONE, INSULIN, PROG #### [facility] , #### T4F, TRISTEN, TSH3, A1C WTH eA, FILIBERTO, GLU, T3F #### [facility] [address] VLDL CHOLESTEROL 10 mg/dL Normal [facility] Comment on above: Performed By: #### D HEAS, LC T4, [id number], SEROTON, TEST F + T, T3R, THYGLOB AB, ESTRADIOL, TPO, SHBG, ESTRONE, INSULIN, PROG #### [facility] , #### T4F, TRISTEN, TSH3, A1C WTH eA, FILIBERTO, GLU, T3F #### [facility] [address] Employee Thyroid Stim Hormon lonnie 09-22-2024 Employee Thyroid Stim Hormone 2.30 u[iU]/mL Normal 0.45-5.33 [facility] Comment on above: Result Comment: PERF ORMED BY: [place] [address] PATHOLOGIST SOLE TACKER JOSE GOEL M.D. Performed By: #### D HEAS, LC T4, [id number], SEROTON, TEST F + T, T3R, THYGLOB AB, ESTRADIOL, TPO, SHBG, ESTRONE, INSULIN, PROG #### [facility] , #### T4F, TRISTEN, TSH3, A1C WTH eA, FILIBERTO, GLU, T3F #### [facility] [address] Eosinophils Auto (Bld) [#/Vo l]Ordered By: Delano Francis on 09-22-2024 Eosinophils (Bld) [#/Vol] Automated eosinophil count 0.0-0.45 [facility] Eosinophils/100 WBC Auto (Bl d)Ordered By: Delano Francis on 09-22-2024 Eosinophils/100 WBC (Bld) Automated eosinophil % . [facility] Erythrocyte distribution wid th Auto (RBC) [Ratio]Ordered By: Delano Francis on 09-22-2024 Erythrocyte distribution width (RBC) [Ratio] Erythrocyte distribution width [Ratio] by Automated count 11.9-15.3 [facility] Erythrocyte distribution wid th [Ratio] by Automated countOrdered By: Delano Francis on 09-22-2024 Erythrocyte distribution width (RBC) [Ratio] 13.2 % Normal 11.9-15.3 [facility] Comment on above: Performed By: #### D HEAS, LC T4, [id number], SEROTON, TEST F + T, T3R, THYGLOB AB, ESTRADIOL, TPO, SHBG, ESTRONE, INSULIN, PROG #### [facility] , #### T4F, TRISTEN, TSH3, A1C WTH eA, FILIBERTO, GLU, T3F #### [facility] [address] [place] [address] [place] Erythrocytes [#/volume] in B lood by Automated countOrdered By: Delano Francis on 09-22-2024 RBC (Bld) [#/Vol] 3.91 10*6/uL Normal 3.60-5.00 [facility] Comment on above: Performed By: #### D VENITA, LC T4, [id number], SEROTON, TEST F + T, T3R, THYGLOB AB, ESTRADIOL, TPO, SHBG, ESTRONE, INSULIN, PROG #### [facility] , #### T4F, TRISTEN, TSH3, A1C WTH eA, FILIBERTO, GLU, T3F #### [facility] [address] [place] [address] [place] Glucose [Mass/volume] in Ser um or PlasmaOrdered By: Delano Francis on 09-22-2024 Glucose [Mass/Vol] 83 mg/dL Normal 70-100 [facility] Comment on above: Performed By: #### D VENITA, LC T4, [id number], SEROTON, TEST F + T, T3R, THYGLOB AB, ESTRADIOL, TPO, SHBG, ESTRONE, INSULIN, PROG #### [facility] , #### T4F, TRISTEN, TSH3, A1C WTH eA, FILIBERTO, GLU, T3F #### [facility] [address] [place] [address] [place] Glucose [Mass/Vol] Glucose [Mass/volume ] in Serum or Plasma 70-100 [facility] Hematocrit Auto (Bld) [Volum e fraction]Ordered By: Delano Francis on 09-22-2024 Hematocrit (Bld) [Volume fraction] Hematocrit [Volume Fraction] of Blood by Automated count 34.0-46.4 [facility] Hematocrit [Volume Fraction] of Blood by Automated countOrdered By: Delano Francis on 09-22-2024 Hematocrit (Bld) [Volume fraction] 35.9 % Normal 34.0-46.4 [facility] Comment on above: Performed By: #### D DANIELLEAS, LC T4, [id number], SEROTON, TEST F + T, T3R, THYGLOB AB, ESTRADIOL, TPO, SHBG, ESTRONE, INSULIN, PROG #### [facility] , #### T4F, TRISTEN, TSH3, A1C WTH eA, FILIBERTO, GLU, T3F #### [facility] [address] Hemoglobin [Mass/volume] in BloodOrdered By: Delano Francis on 09-22-2024 Hemoglobin (Bld) [Mass/Vol] 12.3 g/dL Normal 11.8-15.4 [facility] Comment on above: Performed By: #### D DANIELLEAS, LC T4, [id number], SEROTON, TEST F + T, T3R, THYGLOB AB, ESTRADIOL, TPO, SHBG, ESTRONE, INSULIN, PROG #### [facility] , #### T4F, TRISTEN, TSH3, A1C WTH eA, FILIBERTO, GLU, T3F #### [facility] [address] [place] [address] Hemoglobin (Bld) [Mass/Vol] Hemoglobin [Mass/volume] in Blood 11.8-15.4 [facility] Leukocytes [#/volume] correc calvin for nucleated erythrocytes in Blood by Automated counOrdered By: Delano Francis on 09-22-2024 WBC corrected for nucl RBC Auto (Bld) [#/Vol] 5.1 10*3/uL 3.8-11.6 [facility] WBC corrected for nucl RBC Auto (Bld) [#/Vol] Leukocytes [#/volume] corrected for nucleated erythrocytes in Blood by Automated coun 3.8-11.6 [facility] Leukocytes [#/volume] in Blo od by Automated countOrdered By: Delano Francis on 09-22-2024 WBC (Bld) [#/Vol] 5.1 10*3/uL Normal 3.8-11.6 [facility] Comment on above: Performed By: #### Adria HEAS, LC T4, [id number], SEROTON, TEST F + T, T3R, THYGLOB AB, ESTRADIOL, TPO, SHBG, ESTRONE, INSULIN, PROG #### [facility] , #### T4F, TRISTEN, TSH3, A1C WTH eA, FILIBERTO, GLU, T3F #### [facility] [address] [place] [address] [place] Lymphocytes Auto (Bld) [#/Vo l]Ordered By: Delano Francis on 09-22-2024 Lymphocytes (Bld) [#/Vol] Lymphocytes [#/volume] in Blood by Automated count .00-.8 [facility] Lymphocytes [#/volume] in Bl ood by Automated countOrdered By: Delano Francis on 09-22-2024 Lymphocytes (Bld) [#/Vol] 1.3 10*3/uL Normal .00-4.8 [facility] Comment on above: Performed By: #### D HEAS, LC T4, [id number], SEROTON, TEST F + T, T3R, THYGLOB AB, ESTRADIOL, TPO, SHBG, ESTRONE, INSULIN, PROG #### [facility] , #### T4F, TRISTEN, TSH3, A1C WTH eA, FILIBERTO, GLU, T3F #### [facility] [address] [place] [address] [place] Lymphocytes/100 WBC Auto (Bl d)Ordered By: Delano Francis on 09-22-2024 Lymphocytes/100 WBC (Bld) Lymphocytes/100 leukocytes in Blood by Automated count . [facility] Lymphocytes/100 leukocytes i n Blood by Automated countOrdered By: Delano Francis on 09-22-2024 Lymphocytes/100 WBC (Bld) 25.3 % Normal . [facility] Comment on above: Performed By: #### D HEAS, LC T4, [id number], SEROTON, TEST F + T, T3R, THYGLOB AB, ESTRADIOL, TPO, SHBG, ESTRONE, INSULIN, PROG #### [facility] , #### T4F, TRISTEN, TSH3, A1C WTH eA, FILIBERTO, GLU, T3F #### [facility] [address] MCH Auto (RBC) [Entitic mass ]Ordered By: Delano Francis on 09-22-2024 MCH (RBC) [Entitic mass] MCH [Entitic mass] by Automated count 24.7-34.3 [facility] MCH [Entitic mass] by Automa calvin countOrdered By: Delano Francis on 09-22-2024 MCH (RBC) [Entitic mass] 31.4 pg Normal 24.7-34.3 [facility] Comment on above: Performed By: #### D HEAS, LC T4, [id number], SEROTON, TEST F + T, T3R, THYGLOB AB, ESTRADIOL, TPO, SHBG, ESTRONE, INSULIN, PROG #### [facility] , #### T4F, TRISTEN, TSH3, A1C WTH eA, FILIBERTO, GLU, T3F #### [facility] [address] MCHC Auto (RBC) [Mass/Vol]Or dered By: Delano Francis on 09-22-2024 MCHC (RBC) [Mass/Vol] 34.2 g/dL 32.0-35.0 [facility] MCHC (RBC) [Mass/Vol] MCHC [Mass/volume] by Automated count 32.0-35.0 [facility] MCV Auto (RBC) [Entitic vol] Ordered By: Delano Francis on 09-22-2024 MCV (RBC) [Entitic vol] MCV [Entitic vol ume] by Automated count 80-100 [facility] MCV [Entitic volume] by Auto mated countOrdered By: Delano Francis on 09-22-2024 MCV (RBC) [Entitic vol] 91.7 fL Normal 80-100 [facility] Comment on above: Performed By: #### D HEAS, LC T4, [id number], SEROTON, TEST F + T, T3R, THYGLOB AB, ESTRADIOL, TPO, SHBG, ESTRONE, INSULIN, PROG #### [facility] , #### T4F, TRISTEN, TSH3, A1C WTH eA, FILIBERTO, GLU, T3F #### [facility] [address] [place] [id number] [place] Monocytes Auto (Bld) [#/Vol] Ordered By: Delano Francis on 09-22-2024 Monocytes (Bld) [#/Vol] Automated blood monocyte count 0.0-0.8 [facility] Monocytes/100 WBC Auto (Bld) Ordered By: Delano Francis on 09-22-2024 Monocytes/100 WBC (Bld) Automated monocyte % . [facility] Neutrophils Auto (Bld) [#/Vo l]Ordered By: Delano Francis on 09-22-2024 Neutrophils (Bld) [#/Vol] Neutrophils [#/volume] in Blood by Automated count 1.8-7.7 [facility] Neutrophils [#/volume] in Bl ood by Automated countOrdered By: Delano Francis on 09-22-2024 Neutrophils (Bld) [#/Vol] 3.2 10*3/uL Normal 1.8-7.7 [facility] Comment on above: Performed By: #### D HEAS, LC T4, [id number], SEROTON, TEST F + T, T3R, THYGLOB AB, ESTRADIOL, TPO, SHBG, ESTRONE, INSULIN, PROG #### [facility] , #### T4F, TRISTEN, TSH3, A1C WTH eA, FILIBERTO, GLU, T3F #### [facility] [address] [place] [id number] [facility] Neutrophils/100 WBC Auto (Bl d)Ordered By: Delano Francis on 09-22-2024 Neutrophils/100 WBC (Bld) Automated neutrophil % . [facility] No Panel InformationOrdered By: Delano Francis on 09-22-2024 Estimated GFR (CKD-EPI) > 60.0 mL/Min [facility] Creatinine Clearance (Chem N/A [facility] Nucleated erythrocytes [Pres ence] in Blood by Automated countOrdered By: Delano Francis on 09-22-2024 Nucleated RBC Auto Ql (Bld) 0.0 /100{WBC} 0-0.5 [facility] Nucleated RBC Auto Ql (Bld) Nucleated erythrocytes [Presence] in Blood by Automated count 0-0.5 [facility] Platelet mean volume Auto (B ld) [Entitic vol]Ordered By: Delano Francis on 09-22-2024 Platelet mean volume (Bld) [Entitic vol] Platelet mean volume [Entitic volume] in Blood by Automated count 6.3-10.7 [facility] Platelet mean volume [Entiti c volume] in Blood by Automated countOrdered By: Delano Francis on 09-22-2024 Platelet mean volume (Bld) [Entitic vol] 7.3 fL Normal 6.3-10.7 [facility] Comment on above: Performed By: #### D HEAS, LC T4, [id number], SEROTON, TEST F + T, T3R, THYGLOB AB, ESTRADIOL, TPO, SHBG, ESTRONE, INSULIN, PROG #### [facility] , #### T4F, TRISTEN, TSH3, A1C WTH eA, FILIBERTO, GLU, T3F #### [facility] [address] [place] [address] [place] Platelets Auto (Bld) [#/Vol] Ordered By: Delano Francis on 09-22-2024 Platelets (Bld) [#/Vol] Platelets [#/vol ume] in Blood by Automated count 150-450 [facility] Platelets [#/volume] in Bloo d by Automated countOrdered By: Delano Francis on 09-22-2024 Platelets (Bld) [#/Vol] 328 10*3/uL Normal 150-450 [facility] Comment on above: Performed By: #### D HEAS, LC T4, [id number], SEROTON, TEST F + T, T3R, THYGLOB AB, ESTRADIOL, TPO, SHBG, ESTRONE, INSULIN, PROG #### [facility] , #### T4F, TRISTEN, TSH3, A1C WTH eA, FILIBERTO, GLU, T3F #### [facility] [address] [place] [address] [place] Potassium [Moles/volume] in Serum or PlasmaOrdered By: Delano Francis on 09-22-2024 Potassium [Moles/Vol] 4.5 mmol/L Normal 3.5-5.1 [facility] Comment on above: Performed By: #### D HEAS, LC T4, [id number], SEROTON, TEST F + T, T3R, THYGLOB AB, ESTRADIOL, TPO, SHBG, ESTRONE, INSULIN, PROG #### [facility] , #### T4F, TRISTEN, TSH3, A1C WTH eA, FILIBERTO, GLU, T3F #### [facility] [address] Potassium [Moles/Vol] Potassium [Moles/v olume] in Serum or Plasma 3.5-5.1 [facility] RBC Auto (Bld) [#/Vol]Ordere d By: Delano Francis on 09-22-2024 RBC (Bld) [#/Vol] Erythrocytes [#/volu me] in Blood by Automated count 3.60-5.00 [facility] Serum or plasma anion gap de terminationOrdered By: Delano Francis on 09-22-2024 Anion gap [Moles/Vol] 8.3 mmol/L Normal 6.0-15.0 [facility] Comment on above: Performed By: #### D HEAS, LC T4, [id number], SEROTON, TEST F + T, T3R, THYGLOB AB, ESTRADIOL, TPO, SHBG, ESTRONE, INSULIN, PROG #### [facility] , #### T4F, TRISTEN, TSH3, A1C WTH eA, FILIBERTO, GLU, T3F #### [facility] [address] [place] [address] Anion gap [Moles/Vol] Serum or plasma an ion gap determination 6.0-15.0 [facility] Serum or plasma high density lipoprotein (HDL) cholesterol measurementOrdered By: Delano Francis on 09-22-2024 Cholesterol in HDL [Mass/Vol] 59 mg/dL Normal 23-92 [facility] Comment on above: HDL CHOL ATP-III CLA SSIFICATION Cardiovascular RiskHDL > or equal to 60 mg/dL LOWHDL < 40 mg/dL HIGH Result Comment: HDL CHOL ATP-III CLASSIFICATION Cardiovascular Risk HDL > or equal to 60 mg/dL LOW HDL < 40 mg/dL HIGH Performed By: #### D HEAS, LC T4, [id number], SEROTON, TEST F + T, T3R, THYGLOB AB, ESTRADIOL, TPO, SHBG, ESTRONE, INSULIN, PROG #### [facility] , #### T4F, TRISTEN, TSH3, A1C WTH eA, FILIBERTO, GLU, T3F #### [facility] [address] Serum or plasma total choles terol/high density lipoprotein (HDL) cholesterol mass ratOrdered By: Delano Francis on 09-22-2024 Cholesterol.total/Alivia sterol in HDL [Mass ratio] 3.7 {ratio} Normal <5.0 [facility] Comment on above: Performed By: #### D DANIELLEAS, LC T4, [id number], SEROTON, TEST F + T, T3R, THYGLOB AB, ESTRADIOL, TPO, SHBG, ESTRONE, INSULIN, PROG #### [facility] , #### T4F, TRISTEN, TSH3, A1C WTH eA, FILIBERTO, GLU, T3F #### [facility] [address] Cholesterol.total/Alivia sterol in HDL [Mass ratio] Serum or plasma total cholesterol/high density lipoprotein (HDL) cholesterol mass rat <5.0 [facility] Sodium [Moles/volume] in Ser um or PlasmaOrdered By: Delano Francis on 09-22-2024 Sodium [Moles/Vol] 138 mmol/L Normal 136-145 [facility] Comment on above: Performed By: #### D HEAS, LC T4, [id number], SEROTON, TEST F + T, T3R, THYGLOB AB, ESTRADIOL, TPO, SHBG, ESTRONE, INSULIN, PROG #### [facility] , #### T4F, TRISTEN, TSH3, A1C WTH eA, FILIBERTO, GLU, T3F #### [facility] [address] Sodium [Moles/Vol] Sodium [Moles/volume ] in Serum or Plasma 136-145 [facility] Thyrotropin [Units/volume] i n Serum or PlasmaOrdered By: Delano Francis on 09-22-2024 TSH Qn 2.30 m[IU]/L 0.45-5.33 [facility] TSH Qn Thyrotropin [Units/volume] in Serum or Plasma 0.45-5.33 [facility] Triglyceride [Mass/volume] i n Serum or PlasmaOrdered By: Delano Francis on 09-22-2024 Triglyceride [Mass/Vol] 52 mg/dL 0-149 [facility] Comment on above: TRIG ATP III CLASSIF ICATIONTRIG less than 150 mg/dL NormalTRIG 150-199 mg/dL Borderline highTRIG 200-500 mg/dL High TRIG greater than 500 mg/dL Very highStandard traceable to the Center for Disease Conrtrol and Prevention (CDC) test method. Triglyceride [Mass/Vol] Triglyceride [Mass/volume] in Serum or Plasma 0-149 [facility] Comment on above: TRIG ATP III CLASSIF ICATIONTRIG less than 150 mg/dL NormalTRIG 150-199 mg/dL Borderline highTRIG 200-500 mg/dL High TRIG greater than 500 mg/dL Very highStandard traceable to the Center for Disease Conrtrol and Prevention (CDC) test method. Urea nitrogen [Mass/volume] in Serum or PlasmaOrdered By: Delano Francis on 09-22-2024 Urea nitrogen [Mass/Vol] 9 mg/dL Normal 06-23 [facility] Comment on above: Performed By: #### D JOSSE NATHAN T4, [id number], SEROTON, TEST F + T, T3R, THYGLOB AB, ESTRADIOL, TPO, SHBG, ESTRONE, INSULIN, PROG #### [facility] , #### T4F, TRISTEN, TSH3, A1C WTH eA, FILIBERTO, GLU, T3F #### [facility] [address] Urea nitrogen [Mass/Vol] Urea nitrogen [Mass/volume] in Serum or Plasma 06-23 [facility] WBC Auto (Bld) [#/Vol]Ordere d By: Delano Francis on 09-22-2024 WBC (Bld) [#/Vol] Leukocytes [#/volume ] in Blood by Automated count 3.8-11.6 [facility] IGP,APTIMA HPV,AGE GDLNon AGE GDLN ACOG TESTING Note . [facility] Comment on above: TESTS RESULT FLAG UN ITS REF RANGE LAB Clinician Provided Cytology Information Source.............Cervix;Endocervix No. of containers..01 ThinPrep Vial Age Algo ACOG Lara... FLAG LEGEND: L-Low Normal,H-High Normal,LL-Alert Low,HH-Alert High <-Panic Low,>-Panic High,A-Abnormal,AA-Critical Abnormal Performed at: 01 = [facility] [place] [address] Ilana Heath MD, HPV APTIMA Negative Negative [facility] Comment on above: This nucleic acid am plification test detects fourteen high- risk HPV types (16,18,31,33,35,39,45,51,52,56,58,59,66,68) without differentiation. Performed at: =[facility] [employer] [id number] Supervisor Pre Wave: Ilana Heath MD, Phone: [phone] Performed at: [facility] [employer] [id number] Supervisor Pre Wave: Ilana Heath MD, Phone: [phone] IGP, APTIMA HPV, RFX 16/18,45 Note . [facility] Comment on above: TESTS RESULT FLAG U NITS REF RANGE LAB DIAGNOSIS: 02 NEGATIVE FOR INTRAEPITHELIAL LESION OR MALIGNANCY. Specimen adequacy: 02 Satisfactory for evaluation. No endocervical component is identified. Performed by: 02 Cheam Camargo, Automobile Body Repairer Helper ([facility]) . 02 Note: Note 02 The Pap [...] <-Panic Low,>-Panic High,A-Abnormal,AA-Critical Abnormal Performed at: 02 [facility] [address] [place] [address] Ilana Heath MD, BRUSH-SPATULA CERVIX ENDOCERVIX [facility] 1,25 Dihydroxy Vit D Calcitr olon 01-07-2024 1,25 Dihydroxy Vit D Calcitrol 56.6 pg/mL Normal 24.8-81.5 [facility] Comment on above: Result Comment: Perf ormed at: [facility] [address] [id number] Supervisor Pre Wave: Quinton Wolf MD, Phone: [phone] Performed By: #### D HEAS, LC T4, [id number], SEROTON, TEST F + T, T3R, THYGLOB AB, ESTRADIOL, TPO, SHBG, ESTRONE, INSULIN, PROG #### [facility] , #### T4F, TRISTEN, TSH3, A1C WTH eA, FILIBERTO, GLU, T3F #### [facility] [address] A1C with Estimated Average G luon 01-07-2024 Glucose [Mass/Vol] 105 mg/dL Normal [facility] Comment on above: Result Comment: PERF ORMED BY: [facility] [address] [place] [address] PATHOLOGIST SOLE TACKER JOSE GOEL M.D. Performed By: #### D HEAS, LC T4, [id number], SEROTON, TEST F + T, T3R, THYGLOB AB, ESTRADIOL, TPO, SHBG, ESTRONE, INSULIN, PROG #### [facility] , #### T4F, TRISTEN, TSH3, A1C WTH eA, FILIBERTO, GLU, T3F #### [facility] [address] Antithyroglobulin Abon 01-07 Antithyroglobulin Ab <1.0 Normal 0.0-0.9 [facility] Comment on above: Result Comment: Thyr oglobulin Antibody measured by [employer] Methodology Performed at: [address] [id number] Supervisor Pre Wave: Baudilio Leyva PhD, Phone: [phone] Performed By: #### D HEAS, LC T4, [id number], SEROTON, TEST F + T, T3R, THYGLOB AB, ESTRADIOL, TPO, SHBG, ESTRONE, INSULIN, PROG #### [facility] , #### T4F, TRISTEN, TSH3, A1C WTH eA, FILIBERTO, GLU, T3F #### [address] Cortisolon 01-07-2024 Cortisol 6.8 ug/dL Normal [facility] Comment on above: Result Comment: Refe rence range: AM 6 - 24 ug/dl PM <10 ug/dl [facility] senior recruitment consultant and method: [employer] DXI, POLYCLONAL ANTIBODY CORTISOL ASSAY. PERFORMED BY: [place] [address] PATHOLOGIST SOLE TACKER JOSE GOEL M.D. Performed By: #### D VENITA, LC T4, [id number], SEROTON, TEST F + T, T3R, THYGLOB AB, ESTRADIOL, TPO, SHBG, ESTRONE, INSULIN, PROG #### [facility] , #### T4F, TRISTEN, TSH3, A1C WTH eA, FILIBERTO, GLU, T3F #### [address] Dehydroepiandrosterone Sulfa teOrdered By: Deisy Villar on 01-07-2024 Dehydroepiandrosterone Sulfate 174.0 ug/dL Normal 84.8-378.0 [facility] Comment on above: Performed By: #### D VENITA, LC T4, [id number], SEROTON, TEST F + T, T3R, THYGLOB AB, ESTRADIOL, TPO, SHBG, ESTRONE, INSULIN, PROG #### [facility] , #### T4F, TRISTEN, TSH3, A1C WTH eA, FILIBERTO, GLU, T3F #### [address] Estradiolon 01-07-2024 Estradiol 300.0 pg/mL Normal . [facility] Comment on above: Result Comment: Adul t Female Range Follicular phase 12.5 - 166.0 Ovulation phase 85.8 - 498.0 Luteal phase 43.8 - 211.0 Postmenopausal <6.0 - 54.7 1st trimester 215.0 - >4300.0 Elías ECLIA methodology Performed By: #### D HEAS, LC T4, [id number], SEROTON, TEST F + T, T3R, THYGLOB AB, ESTRADIOL, TPO, SHBG, ESTRONE, INSULIN, PROG #### [facility] , #### T4F, TRISTEN, TSH3, A1C WTH eA, FILIBERTO, GLU, T3F #### [facility] [address] [place] [id number] [facility] Estrone, Serumon 01-07-2024 Estrone, Serum 46 pg/mL Normal 27-231 [facility] Comment on above: Result Comment: Rang e Adult (Premenopausal) 27 - 231 Menstrual Cycle (1-10 days) 19 - 149 Menstrual Cycle (11-20 days) 32 - 176 Menstrual Cycle (21-30 days) 37 - 200 Performed at: [address] [id number] Supervisor Pre Wave: Quinton Wolf MD, Phone: [phone] Performed By: #### D HEAS, LC T4, [id number], SEROTON, TEST F + T, T3R, THYGLOB AB, ESTRADIOL, TPO, SHBG, ESTRONE, INSULIN, PROG #### [facility] , #### T4F, TRISTEN, TSH3, A1C WTH eA, FILIBERTO, GLU, T3F #### [facility] [address] [place], [place] [address] [facility] Ferritin [Mass/volume] in Se rum or PlasmaOrdered By: Deisy Villar on 01-07-2024 Ferritin [Mass/Vol] 44.8 ng/mL Normal 11.0-306.8 [facility] Comment on above: Performed By: #### D HEAS, LC T4, [id number], SEROTON, TEST F + T, T3R, THYGLOB AB, ESTRADIOL, TPO, SHBG, ESTRONE, INSULIN, PROG #### [facility] , #### T4F, TRISTEN, TSH3, A1C WTH eA, FILIBERTO, GLU, T3F #### [facility] [address] [place] [id number] [facility] Free testosterone measuremen t by LC-MS/MSOrdered By: Deisy Villar on 01-07-2024 Testosterone Free [Mass/Vol] 0.3 pg/mL 0.0-4.2 [facility] Comment on above: Performed at: - [facility] [address] [id number] Director: Baudilio Leyva PhD, Phone: [phone] at: - [facility] [id number] Director: Quinton Wolf MD, Phone: [phone] Glucose [Mass/volume] in Ser um or PlasmaOrdered By: Deisy Villar on 01-07-2024 Glucose [Mass/Vol] 84 mg/dL Normal 70-100 [facility] Comment on above: ADA recommended refe rence rangeRandom Glucose Reference Range is dependent on time and content of last meal. Glucose of more than 200 mg/dL in a nonstressed, ambulatory subject supports the diagnosis of Diabetes Mellitus. Result Comment: [place] om Glucose Reference Range is dependent on time and content of last meal. Glucose of more than 200 mg/dL in a nonstressed, ambulatory subject supports the diagnosis of Diabetes Mellitus. ADA recommended reference range Performed By: #### D HEAS, LC T4, [id number], SEROTON, TEST F + T, T3R, THYGLOB AB, ESTRADIOL, TPO, SHBG, ESTRONE, INSULIN, PROG #### [facility] , #### T4F, TRISTEN, TSH3, A1C WTH eA, FILIBERTO, GLU, T3F #### [facility] [address] Glucose mean value [Mass/vol ume] in Blood Estimated from glycated hemoglobinOrdered By: Deisy Villar on 01-07-2024 Average glucose Estimated from glycated hemoglobin (Bld) [Mass/Vol] 105 mg/dL [facility] Hemoglobin A1c percentageOrd ered By: Deisy Villar on 01-07-2024 HbA1c (Bld) [Mass fraction] 5.3 % Normal 4.3-5.6 [facility] Comment on above: Increased risk for d iabetes: 5.7 - 6.4diabetes: >6.4glycemic control for adults with diabetes: <7.0 Result Comment: Incr eased risk for diabetes: 5.7 - 6.4 diabetes: >6.4 glycemic control for adults with diabetes: <7.0 Performed By: #### D HEAS, LC T4, [id number], SEROTON, TEST F + T, T3R, THYGLOB AB, ESTRADIOL, TPO, SHBG, ESTRONE, INSULIN, PROG #### [facility] , #### T4F, TRISTEN, TSH3, A1C WTH eA, FILIBERTO, GLU, T3F #### [address] Insulinon 01-07-2024 Insulin 4.5 u[iU]/mL Normal 2.6-24.9 [facility] Comment on above: Result Comment: Perf ormed at: - [facility] [address] [id number] Supervisor Pre Wave: Baudilio Leyva PhD, Phone: [phone] Performed By: #### D HEAS, LC T4, [id number], SEROTON, TEST F + T, T3R, THYGLOB AB, ESTRADIOL, TPO, SHBG, ESTRONE, INSULIN, PROG #### [facility] , #### T4F, TRISTEN, TSH3, A1C WTH eA, FILIBERTO, GLU, T3F #### [address] [facility] Thyroxine (T4)on T4 [Mass/Vol] 8.2 ug/dL Normal 4.5-12.0 [facility] Comment on above: Performed By: #### D HEAS, LC T4, [id number], SEROTON, TEST F + T, T3R, THYGLOB AB, ESTRADIOL, TPO, SHBG, ESTRONE, INSULIN, PROG #### [facility] , #### T4F, TRISTEN, TSH3, A1C WTH eA, FILIBERTO, GLU, T3F #### [address] [place] [address] [facility] No Panel InformationOrdered By: Deisy Villar on 01-07-2024 Free Thyroxine (T4) Direct 8.2 ug/dL 4.5-12.0 [facility] Reverse Triiodothyronine (T3) 18.9 ng/dL 9.2-24.1 [facility] Comment on above: This test was develo ped and its performance characteristicsdetermined by [employer]. It has not been cleared orapproved by the Food and Drug Administration.Performed at: [address] [id number] Director: Quinton Wolf MD, Phone: [phone] Sex Hormone Binding Globulin 95.4 nmol/L 24.6-122.0 [facility] Comment on above: Performed at: [address] [id number] Director: Baudilio Leyva PhD, Phone: [phone] Plasma serotonin measurement (mass/volume)Ordered By: Deisy Villar on 01-07-2024 Serotonin (P) [Mass/Vol] 71 ng/mL 31 [facility] Comment on above: This test was develo ped and its performance characteristicsdetermined by [employer]. It has not been cleared orapproved by the Food and Drug Administration.Performed at: [address] [id number] Director: Quinton Wolf MD, Phone: [phone] Progesteroneon 01-07-2024 Progesterone 0.2 ng/mL Normal . [facility] Comment on above: Result Comment: Foll icular phase 0.1 - 0.9 Luteal phase 1.8 - 23.9 Ovulation phase 0.1 - 12.0 First trimester 11.0 - 44.3 Second trimester 25.4 - 83.3 Third trimester 58.7 - 214.0 Postmenopausal 0.0 - 0.1 Performed By: #### D HEAS, LC T4, [id number], SEROTON, TEST F + T, T3R, THYGLOB AB, ESTRADIOL, TPO, SHBG, ESTRONE, INSULIN, PROG #### [facility] , #### T4F, TRISTEN, TSH3, A1C WTH eA, FILIBERTO, GLU, T3F #### [facility] [address] Random cortisol measurementO rdered By: Deisy Villar on 01-07-2024 Cortisol [Mass/Vol] 6.8 ug/dL [facility] Comment on above: [facility] senior recruitment consultant and method:HELGA [employer] DXI, POLYCLONAL ANTIBODY CORTISOL ASSAY.Reference range: AM 6 - 24 ug/dl PM <10 ug/dl Serotonin, Serumon 4 Serotonin, Serum 71 ng/mL Normal 31-207 [facility] Comment on above: Result Comment: This test was developed and its performance characteristics determined by [employer]. It has not been cleared or approved by the Food and Drug Administration. Performed at: [email or web address] [id number] Supervisor Pre Wave: Quniton Wolf MD, Phone: [phone] PERFORMED BY: [place] [address] PATHOLOGIST SOLE TACKER JOSE GOEL M.D. Performed By: #### D HEAS, LC T4, [id number], SEROTON, TEST F + T, T3R, THYGLOB AB, ESTRADIOL, TPO, SHBG, ESTRONE, INSULIN, PROG #### [facility] , #### T4F, TRISTEN, TSH3, A1C WTH eA, FILIBERTO, GLU, T3F #### [facility] [address] [place] [address] Serum estrone measurementOrd ered By: Deisy Villar on 01-07-2024 E1 [Mass/Vol] 46 pg/mL 231 [facility] Comment on above: Range Adult (Premeno pausal) 27 - 231 Menstrual Cycle (1-10 days) 19 - 149 Menstrual Cycle (11-20 days) 32 - 176 Menstrual Cycle (21-30 days) 37 - 200Performed at: [email or web address] [id number] Director: Quinton Wolf MD, Phone: [phone] Serum or plasma calcitriol m easurement (mass/volume)Ordered By: Deisy Villar on 01-07-2024 1,25-dihydroxyvitamin D3 [Mass/Vol] 56.6 pg/mL 24.8-81.5 [facility] Comment on above: Performed at: - [facility] [address] [place], [place] [id number] Director: Quinton Wolf MD, Phone: [phone] Serum or plasma estradiol (E 2) measurement (mass/volume)Ordered By: Deisy Villar on 01-07-2024 E2 [Mass/Vol] 300.0 pg/mL . [facility] Comment on above: Adult Female Range F ollicular phase 12.5 - 166.0 Ovulation phase 85.8 - 498.0 Luteal phase 43.8 - 211.0 Postmenopausal <6.0 - 54.7 1st trimester 215.0 - >4300.0Roche ECLIA methodology Serum or plasma insulin kevin urement (units/volume)Ordered By: Deisy Villar on 01-07-2024 Insulin Qn 4.5 u[iU]/mL 2.6-24.9 [facility] Comment on above: Performed at: [employer] [address] [id number] Director: Baudilio Leyva PhD, Phone: [phone] Serum or plasma progesterone measurement (mass/volume)Ordered By: Deisy Villar on 01-07-2024 Progesterone [Mass/Vol] 0.2 ng/mL . [facility] Comment on above: Follicular phase 0.1 - 0.9 Luteal phase 1.8 - 23.9 Ovulation phase 0.1 - 12.0 First trimester 11.0 - 44.3 Second trimester 25.4 - 83.3 Third trimester 58.7 - 214.0 Postmenopausal 0.0 - 0.1 Serum or plasma thyroglobuli n antibody assay (units/volume)Ordered By: Deisy Villar on 01-07-2024 Thyroglobulin Ab Qn [IU]/mL 0.0-0.9 [facility] Comment on above: Thyroglobulin Antibo dy measured by The O'Gara GroupMethodologyPerformed at: 2CRisk [facility] [id number] [id number] Director: Baudilio Leyva PhD, Phone: [phone] Serum or plasma thyroperoxid ase antibody assay (units/volume)Ordered By: Deisy Villar on 01-07-2024 TPO Ab Qn [IU]/mL 0-34 [facility] Comment on above: Performed at: - [facility] [address] [place] [id number] Director: Baudilio Leyva PhD, Phone: [phone] Sex Hormone Binding Globulin on 01-07-2024 Sex Hormone Binding Globulin 95.4 Normal 24.6-122.0 [facility] Comment on above: Result Comment: Perf ormed at: [employer] [address] [id number] Supervisor Pre Wave: Baudilio Leyva PhD, Phone: [phone] Performed By: #### D VENITA, LC T4, [id number], SEROTON, TEST F + T, T3R, THYGLOB AB, ESTRADIOL, TPO, SHBG, ESTRONE, INSULIN, PROG #### [facility] , #### T4F, TRISTEN, TSH3, A1C WTH eA, FILIBERTO, GLU, T3F #### [facility] [address] Testosterone Free and TotalO rdered By: Deisy Villar on 01-07-2024 Testosterone [Mass/Vol] 16 ng/dL Normal 8-60 [facility] Comment on above: Performed By: #### D VENITA, LC T4, [id number], SEROTON, TEST F + T, T3R, THYGLOB AB, ESTRADIOL, TPO, SHBG, ESTRONE, INSULIN, PROG #### [facility] , #### T4F, TRISTEN, TSH3, A1C WTH eA, FILIBERTO, GLU, T3F #### [facility] [address] [place] [address] [place] Testosterone Free and Totalo n 01-07-2024 Testosterone,Free 0.3 pg/mL Normal 0.0-4.2 The [facility] Comment on above: Result Comment: Perf ormed at: [facility] [address] [id number] Supervisor Pre Wave: Baudilio Leyva PhD, Phone: [phone] Performed at: [address] [id number] Supervisor Pre Wave: Quinton Wolf MD, Phone: [phone] Performed By: #### D HEAS, LC T4, [id number], SEROTON, TEST F + T, T3R, THYGLOB AB, ESTRADIOL, TPO, SHBG, ESTRONE, INSULIN, PROG #### [facility] , #### T4F, TRISTEN, TSH3, A1C WTH eA, FILIBERTO, GLU, T3F #### [facility] [address] Thyroid Peroxidase Antibodie son 01-07-2024 Thyroid Peroxidase Antibodies <9 Normal 0-34 [facility] Comment on above: Result Comment: Perf ormed at: [facility] [address] [place] [employer], [place] [id number] Supervisor Pre Wave: Baudilio Leyva PhD, Phone: [phone] Performed By: #### D HEAS, LC T4, [id number], SEROTON, TEST F + T, T3R, THYGLOB AB, ESTRADIOL, TPO, SHBG, ESTRONE, INSULIN, PROG #### [facility] , #### T4F, TRISTEN, TSH3, A1C WTH eA, FILIBERTO, GLU, T3F #### [facility] [address] Thyrotropin [Units/volume] i n Serum or PlasmaOrdered By: Deisy Villar on 01-07-2024 TSH Qn 1.80 m[IU]/L Normal 0.45-5.33 [facility] Comment on above: Performed By: #### D HEAS, LC T4, [id number], SEROTON, TEST F + T, T3R, THYGLOB AB, ESTRADIOL, TPO, SHBG, ESTRONE, INSULIN, PROG #### [facility] , #### T4F, TRISTEN, TSH3, A1C WTH eA, FILIBERTO, GLU, T3F #### [address] Thyroxine (T4) free [Mass/vo lume] in Serum or PlasmaOrdered By: Deisy Villar on 01-07-2024 Free T4 [Mass/Vol] 0.88 ng/dL Normal 0.61-1.12 [facility] Comment on above: Performed By: #### D VENITA, LC T4, [id number], SEROTON, TEST F + T, T3R, THYGLOB AB, ESTRADIOL, TPO, SHBG, ESTRONE, INSULIN, PROG #### [facility] , #### T4F, TRISTEN, TSH3, A1C WTH eA, FILIBERTO, GLU, T3F #### [address] Triiodothyronine (T3) Freeon 01-07-2024 Triiodothyronine (T3) Free 3.90 pg/mL Normal 2.50-3.90 [facility] Comment on above: Result Comment: PERF ORMED BY: [place] [address] PATHOLOGIST SOLE TACKER JOSE GOEL M.D. Performed By: #### Adria NATHAN, LC T4, [id number], SEROTON, TEST F + T, T3R, THYGLOB AB, ESTRADIOL, TPO, SHBG, ESTRONE, INSULIN, PROG #### [facility] , #### T4F, TRISTEN, TSH3, A1C WTH eA, FILIBERTO, GLU, T3F #### [address] Triiodothyronine (T3) Free [ Mass/volume] in Serum or PlasmaOrdered By: Deisy Villar on 01-07-2024 Free T3 [Mass/Vol] 3.90 pg/mL 2.50-3.90 [facility] Triiodothyronine (T3) Revers lonnie 01-07-2024 Triiodothyronine (T3) Reverse 18.9 ng/dL Normal 9.2-24.1 [facility] Comment on above: Result Comment: This test was developed and its performance characteristics determined by [facility]. It has not been cleared or approved by the Food and Drug Administration. Performed at: [facility], [place], [place] [id number] Supervisor Pre Wave: Quinton Wolf MD, Phone: [phone] Performed By: #### D JOSSE NATHAN T4, [id number], SEROTON, TEST F + T, T3R, THYGLOB AB, ESTRADIOL, TPO, SHBG, ESTRONE, INSULIN, PROG #### [facility] , #### T4F, TRISTEN, TSH3, A1C WTH eA, FILIBERTO, GLU, T3F #### [facility] [address] Alanine aminotransferase [En zymatic activity/volume] in Serum or PlasmaOrdered By: Delano Francis on 09-17-2023 ALT [Catalytic activity/Vol] 20 U/L 7-52 [facility] Albumin [Mass/volume] in Ser um or Plasma by Bromocresol green (BCG) dye binding methoOrdered By: Delano Francis on 09-17-2023 Albumin BCG dye [Mass/Vol] 4.3 g/dL 3.5-5.7 [facility] Alkaline phosphatase [Enzyma tic activity/volume] in Serum or PlasmaOrdered By: Delano Francis on 09-17-2023 ALP [Catalytic activity/Vol] 62 U/L 34-104 [facility] Aspartate aminotransferase [ Enzymatic activity/volume] in Serum or PlasmaOrdered By: Delano Francis on 09-17-2023 AST [Catalytic activity/Vol] 22 U/L 13-39 [facility] Basophils Auto (Bld) [#/Vol] Ordered By: Delano Francis on 09-17-2023 Basophils (Bld) [#/Vol] 0.0 10*3/uL 0.0-0.2 [facility] Basophils/100 WBC Auto (Bld) Ordered By: Delano Francis on 09-17-2023 Basophils/100 WBC (Bld) 0.4 % . F [facility] Bilirubin.total [Mass/volume ] in Serum or PlasmaOrdered By: Delano Francis on 09-17-2023 Bilirubin [Mass/Vol] 0.7 mg/dL 0.3-1.0 [facility] Calcium [Mass/volume] in Ser um or PlasmaOrdered By: Delano Francis on 09-17-2023 Calcium [Mass/Vol] 9.4 mg/dL 8.6-10.3 [facility] Carbon dioxide, total [Moles /volume] in Serum or PlasmaOrdered By: Delano Francis on 09-17-2023 CO2 [Moles/Vol] 26.2 mmol/L 21.0-31.0 [facility] Chloride [Moles/volume] in S stevo or PlasmaOrdered By: Delano Francis on 09-17-2023 Chloride [Moles/Vol] 102 mmol/L 98-107 [facility] Cholesterol [Mass/volume] in Serum or PlasmaOrdered By: Delano Francis on 09-17-2023 Cholesterol [Mass/Vol] 214 mg/dL 140-[address] [facility] Comment on above: Chol less than 200 m g/dl low riskChol 201-239 mg/dl borderline riskChol 240 mg/dl and greater high risk Cholesterol in LDL Calc [Mas s/Vol]Ordered By: Delano Francis on 09-17-2023 Cholesterol in LDL [Mass/Vol] 161 mg/dL 0-100 [facility] Comment on above: LDL ATP III CLASSIFI CATIONLDL less than 100 mg/dL OptimalLDL 100-129 mg/dL Near or above optimalLDL 130-159 mg/dL Borderline highLDL 160-189 mg/dL HighLDL greater than 189 mg/dL Very high Cholesterol in VLDL Calc [Ma ss/Vol]Ordered By: Delano Francis on 09-17-2023 Cholesterol in VLDL [Mass/Vol] 9 mg/dL [facility] Creatinine [Mass/volume] in Serum or PlasmaOrdered By: Delano Francis on 09-17-2023 Creatinine [Mass/Vol] 0.79 mg/dL 0.60-1.20 [facility] Eosinophils Auto (Bld) [#/Vo l]Ordered By: Delano Francis on 09-17-2023 Eosinophils (Bld) [#/Vol] 0.1 10*3/uL 0.0-0.45 [facility] Eosinophils/100 WBC Auto (Bl d)Ordered By: Delano Francis on 09-17-2023 Eosinophils/100 WBC (Bld) 0.9 % . [facility] Erythrocyte distribution wid th Auto (RBC) [Ratio]Ordered By: Delano Francis on 09-17-2023 Erythrocyte distribution width (RBC) [Ratio] 12.4 % 11.9-15.3 [facility] Globulin Calc (S) [Mass/Vol] Ordered By: Delano Francis on 09-17-2023 Globulin (S) [Mass/Vol] 2.5 g/dL [facility] Glucose [Mass/volume] in Ser um or PlasmaOrdered By: Delano Francis on 09-17-2023 Glucose [Mass/Vol] 75 mg/dL 70-100 [facility] Hematocrit Auto (Bld) [Volum e fraction]Ordered By: Delano Francis on 09-17-2023 Hematocrit (Bld) [Volume fraction] 34.2 % 34.0-46.4 [facility] Hemoglobin [Mass/volume] in BloodOrdered By: Delano Francis on 09-17-2023 Hemoglobin (Bld) [Mass/Vol] 11.8 g/dL 11.8-15.4 [facility] Leukocytes [#/volume] correc calvin for nucleated erythrocytes in Blood by Automated counOrdered By: Delano Francis on 09-17-2023 WBC corrected for nucl RBC Auto (Bld) [#/Vol] 5.9 10*3/uL 3.8-11.6 [facility] Lymphocytes Auto (Bld) [#/Vo l]Ordered By: Delano Francis on 09-17-2023 Lymphocytes (Bld) [#/Vol] 1.8 10*3/uL 1.00-4.8 [facility] Lymphocytes/100 WBC Auto (Bl d)Ordered By: Delano Francis on 09-17-2023 Lymphocytes/100 WBC (Bld) 30.5 % . [facility] MCH Auto (RBC) [Entitic mass ]Ordered By: Delano Francis on 09-17-2023 MCH (RBC) [Entitic mass] 31.8 pg 24.7-34.3 [facility] MCHC Auto (RBC) [Mass/Vol]Or dered By: Delano Francis on 09-17-2023 MCHC (RBC) [Mass/Vol] 34.4 g/dL 32.0-35.0 [facility] MCV Auto (RBC) [Entitic vol] Ordered By: Delano Francis on 09-17-2023 MCV (RBC) [Entitic vol] 92.5 fL 80-100 F [facility] Monocytes Auto (Bld) [#/Vol] Ordered By: Delano Francis on 09-17-2023 Monocytes (Bld) [#/Vol] 0.5 10*3/uL 0.0-0.8 [facility] Monocytes/100 WBC Auto (Bld) Ordered By: Delano Francis on 09-17-2023 Monocytes/100 WBC (Bld) 9.2 % . F [facility] Neutrophils Auto (Bld) [#/Vo l]Ordered By: Delano Francis on 09-17-2023 Neutrophils (Bld) [#/Vol] 3.5 10*3/uL 1.8-7.7 [facility] Neutrophils/100 WBC Auto (Bl d)Ordered By: Dealno Francis on 09-17-2023 Neutrophils/100 WBC (Bld) 59.0 % . [facility] No Panel InformationOrdered By: Delano Francis on 09-17-2023 Estimated GFR (CKD-EPI) > 60.0 mL/Min [facility] Creatinine Clearance (Chem N/A [facility] Nucleated erythrocytes [Pres ence] in Blood by Automated countOrdered By: Delano Francis on 09-17-2023 Nucleated RBC Auto Ql (Bld) 0.2 /100{WBC} 0-0.5 [facility] Platelet mean volume Auto (B ld) [Entitic vol]Ordered By: Delano Francis on 09-17-2023 Platelet mean volume (Bld) [Entitic vol] 8.1 fL 6.3-10.7 [facility] Platelets Auto (Bld) [#/Vol] Ordered By: Delano Francis on 09-17-2023 Platelets (Bld) [#/Vol] 250 10*3/uL 150-450 [facility] Potassium [Moles/volume] in Serum or PlasmaOrdered By: Delano Francis on 09-17-2023 Potassium [Moles/Vol] 4.0 mmol/L 3.5-5.1 [facility] Protein [Mass/volume] in Ser um or PlasmaOrdered By: Delano Francis on 09-17-2023 Protein [Mass/Vol] 6.8 g/dL 6.4-8.9 [facility] RBC Auto (Bld) [#/Vol]Ordere d By: Delano Francis on 09-17-2023 RBC (Bld) [#/Vol] 3.70 10*6/uL 3.60-5.00 [facility] Serum or plasma albumin/glob ulin mass ratioOrdered By: Delano Francis on 09-17-2023 Albumin/Globulin [Mass ratio] 1.7 {ratio} [facility] Serum or plasma anion gap de terminationOrdered By: Delano Francis on 09-17-2023 Anion gap [Moles/Vol] 10.8 mmol/L 6.0-15.[address] [facility] Serum or plasma high density lipoprotein (HDL) cholesterol measurementOrdered By: Delano Francis on 09-17-2023 Cholesterol in HDL [Mass/Vol] 43 mg/dL 23-92 [facility] Comment on above: HDL CHOL ATP-III CLA SSIFICATION Cardiovascular RiskHDL > or equal to 60 mg/dL LOWHDL < 40 mg/dL HIGH Serum or plasma total choles terol/high density lipoprotein (HDL) cholesterol mass ratOrdered By: Delano Francis on 09-17-2023 Cholesterol.total/Alivia sterol in HDL [Mass ratio] 5.0 {ratio} <5.0 [facility] Sodium [Moles/volume] in Ser um or PlasmaOrdered By: Delano Francis on 09-17-2023 Sodium [Moles/Vol] 135 mmol/L 136-145 [facility] Thyrotropin [Units/volume] i n Serum or PlasmaOrdered By: Delano Francis on 09-17-2023 TSH Qn 1.04 m[IU]/L 0.45-5.33 [facility] Triglyceride [Mass/volume] i n Serum or PlasmaOrdered By: Delano Francis on 09-17-2023 Triglyceride [Mass/Vol] 48 mg/dL 0-149 [facility] Comment on above: TRIG ATP III CLASSIF ICATIONTRIG less than 150 mg/dL NormalTRIG 150-199 mg/dL Borderline highTRIG 200-500 mg/dL High TRIG greater than 500 mg/dL Very highStandard traceable to the Center for Disease Conrtrol and Prevention (CDC) test method. Urea nitrogen [Mass/volume] in Serum or PlasmaOrdered By: Delano Francis on 09-17-2023 Urea nitrogen [Mass/Vol] 7 mg/dL 7-25 [facility] WBC Auto (Bld) [#/Vol]Ordere d By: Delano Francis on 09-17-2023 WBC (Bld) [#/Vol] 5.9 10*3/uL 3.8-11.6 [facility] Mononucleosis Test, Qualon 1 Heterophile Ab LA Ql (S) Negative [employer] Other [facility] Strep[facility] 09-26-2022 S. pyogenes Org specific cx Ql (Throat) Negative [employer] Other Quick Strep [employer] Other SARS-CoV-2 (COVID-19) RNA NA A+probe Ql (Resp)on 09-26-2022 SARS-CoV-2 (COVID-19) RNA ROB+probe Ql (Unsp spec) Negative [employer] Other PAP ACOG PANEL 2: 30 to 65on 09-01-2022 . . Normal [facility] Comment on above: Result Comment: Perf ormed at: WB Performed By: #### [id number] #### [facility] [address] [place] [address] Dr. Zonia Zhang Age Gdln ACOG Testing 30-65 [facility] Comment on above: Performed By: #### [id number] #### [facility] [address] [address] [address] Zonia Zhang DIAGNOSIS: Comment [facility] Comment on above: Result Comment: NEGA TIVE FOR INTRAEPITHELIAL LESION OR MALIGNANCY. Performed at: WB Performed By: #### [id number] #### [facility] [address] [place] [address] Dr. Zonia Zhang HPV Aptima Negative Normal Negative [facility] Comment on above: Result Comment: This nucleic acid amplification test detects fourteen high-risk HPV types (16,18,31,33,35,39,45,51,52,56,58,59,66,68) without differentiation. Performed at: =G Performed By: #### [id number] #### [facility] [address] [place] [address] Dr. Zonia Zhang Methodology: Comment Normal [facility] Comment on above: Result Comment: This liquid based ThinPrep(R) pap test was screened with the use of an image guided system. Performed at: WB Performed By: #### [id number] #### [facility] [address] [place] [address] Dr. Zonia Zhang Note: Comment Normal [facility] Comment on above: Result Comment: The Pap smear is a screening test designed to aid in the detection of premalignant and malignant conditions of the uterine cervix. It is not a diagnostic procedure and should not be used as the sole means of detecting cervical cancer. Both false-positive and false-negative reports do occur. . Performed at: WB Performed By: #### [id number] #### [facility] [address] [place] [address] Dr. Zonia Zhang Performed by: Comment Normal [facility] Comment on above: Result Comment: Negin Tomas, Automobile Body Repairer Helper (ASCP) Performed at: WB Performed By: #### [id number] #### [facility] [address] [place] [address] Dr. Zonia Zhang Specimen adequacy: Comment Normal [facility] Comment on above: Result Comment: Sati sfactory for evaluation. Endocervical and/or squamous metaplastic cells (endocervical component) are present. Performed at: WB Performed By: #### [id number] #### [facility] [address] [place] [address] Dr. Zonia Zhang Basophils Auto (Bld) [#/Vol] Ordered By: Delano Francis on 08-07-2022 Basophils (Bld) [#/Vol] 0.0 10*3/uL 0.0-0.2 [facility] Basophils/100 WBC Auto (Bld) Ordered By: Delano Francis on 08-07-2022 Basophils/100 WBC (Bld) 0.5 % . [facility] Blood hemoglobin measurement (mass/volume)Ordered By: Delano Francis on 08-07-2022 Hemoglobin (Bld) [Mass/Vol] 12.7 g/dL 11.8-15.4 [facility] Blood leukocytes automated c ount (number/volume)Ordered By: Delano Francis on 08-07-2022 WBC (Bld) [#/Vol] 5.0 10*3/uL 4.5-11.0 [facility] Body fluid albumin measureme nt (mass/volume)Ordered By: Delano Francis on 08-07-2022 Albumin (Body fld) [Mass/Vol] 4.1 g/dL 3.2-5.5 [facility] Cholesterol [Mass/volume] in Serum or PlasmaOrdered By: Delano Francis on 08-07-2022 Cholesterol [Mass/Vol] 253 mg/dL 140-[address] [facility] Comment on above: Chol less than 200 m g/dl low risk Chol 201-239 mg/dl borderline risk Chol 240 mg/dl and greater high risk Chol less than 200 m g/dl low riskChol 201-239 mg/dl borderline riskChol 240 mg/dl and greater high risk Cholesterol in LDL Calc [Mas s/Vol]Ordered By: Delano Francis on 08-07-2022 Cholesterol in LDL [Mass/Vol] 181 mg/dL 0-100 [facility] Comment on above: LDL ATP III [...] 08-07-2022 Cholesterol in VLDL [Mass/Vol] 12 mg/dL [facility] Creatinine and Glomerular fi ltration rate.predicted panel (S/P/Bld)Ordered By: Delano Francis on 08-07-2022 Creatinine [Mass/Vol] 0.76 mg/dL 0.44-1.03 [facility] Eosinophils Auto (Bld) [#/Vo l]Ordered By: Delano Francis on 08-07-2022 Eosinophils (Bld) [#/Vol] 0.1 10*3/uL 0.0-0.45 [facility] Eosinophils/100 WBC Auto (Bl d)Ordered By: Delano Francis on 08-07-2022 Eosinophils/100 WBC (Bld) 1.6 % . [facility] Erythrocyte distribution wid th Auto (RBC) [Ratio]Ordered By: Delano Francis on 08-07-2022 Erythrocyte distribution width (RBC) [Ratio] 12.6 % 11.9-15.3 [facility] Estimated glomerular filtrat ion rate (GFR) non- AmericanOrdered By: Delano Francis on 08-07-2022 GFR/1.73 sq M.predicted among non-blacks MDRD (S/P/Bld) [Vol rate/Area] > 60 mL/Min [facility] Globulin Calc (S) [Mass/Vol] Ordered By: Delano Francis on 08-07-2022 Globulin (S) [Mass/Vol] 2.3 g/dL [facility] Hematocrit Auto (Bld) [Volum e fraction]Ordered By: Delano Francis on 08-07-2022 Hematocrit (Bld) [Volume fraction] 37.5 % 34.0-46.4 [facility] - Chemistry and C hemistry - challengeOrdered By: Delano Francis on 08-07-2022 Glucose [Mass/Vol] 88 mg/dL 70-100 [facility] - Hematology and Cell countsOrdered By: Delano Francis on 08-07-2022 Nucleated RBC/100 WBC (Bld) [Ratio] 0.1 % 0-0.5 [facility] Lymphocytes Auto (Bld) [#/Vo l]Ordered By: Delano Francis on 08-07-2022 Lymphocytes (Bld) [#/Vol] 1.4 10*3/uL 1.00-4.8 [facility] Lymphocytes/100 WBC Auto (Bl d)Ordered By: Delano Francis on 08-07-2022 Lymphocytes/100 WBC (Bld) 28.1 % . [facility] MCH Auto (RBC) [Entitic mass ]Ordered By: Delano Francis on 08-07-2022 MCH (RBC) [Entitic mass] 31.8 pg 24.7-34.3 [facility] MCHC Auto (RBC) [Mass/Vol]Or dered By: Delano Francis on 08-07-2022 MCHC (RBC) [Mass/Vol] 33.8 g/dL 32.0-35.0 [facility] MCV Auto (RBC) [Entitic vol] Ordered By: Delano Francis on 08-07-2022 MCV (RBC) [Entitic vol] 94.3 fL 80-100 [facility] Monocyte %Ordered By: Delano Francis on 08-07-2022 Monocyte % 60 mg/dL 35-149 [facility] Comment on above: TRIG ATP III [...] 08-07-2022 Monocytes (Bld) [#/Vol] 0.5 10*3/uL 0.0-0.8 [facility] Monocytes/100 WBC Auto (Bld) Ordered By: Delano Francis on 08-07-2022 Monocytes/100 WBC (Bld) 10.1 % . [facility] Neutrophils Auto (Bld) [#/Vo l]Ordered By: Delano Francis on 08-07-2022 Neutrophils (Bld) [#/Vol] 3.0 10*3/uL 1.8-7.7 [facility] Neutrophils/100 WBC Auto (Bl d)Ordered By: Delano Francis on 08-07-2022 Neutrophils/100 WBC (Bld) 59.7 % . [facility] No Panel InformationOrdered By: Delano Francis on 08-07-2022 Estimated GFR () > 60 mL/Min [facility] Comment on above: GFR estimated refere nce range: According to KDOQI guidelines, <60 ml/min/1.73m2 is sufficient to diagnose a patient with chronic kidney disease. Nicotine Metabolite Negative Cutoff=25 [facility] Comment on above: Performed at: [address] [id number] Director: Quinton Wolf MD, Phone: [phone] Pharmacy Creatinine Clearance (Chem N/A [facility] Platelet mean volume Auto (B ld) [Entitic vol]Ordered By: Delano Francis on 08-07-2022 Platelet mean volume (Bld) [Entitic vol] 7.8 fL 6.3-10.7 [facility] Platelets Auto (Bld) [#/Vol] Ordered By: Delano Francis on 08-07-2022 Platelets (Bld) [#/Vol] 275 10*3/uL 150-450 [facility] Protein [Mass/volume] in Ser um or PlasmaOrdered By: Delano Francis on 08-07-2022 Protein [Mass/Vol] 6.4 g/dL 6.1-7.9 [facility] RBC Auto (Bld) [#/Vol]Ordere d By: Delano Francis on 08-07-2022 RBC (Bld) [#/Vol] 3.97 10*6/uL 3.60-5.00 [facility] Serum or plasma alanine troy otransferase measurement without P-5'-P (enzymatic activiOrdered By: Delano Francis on 08-07-2022 ALT No additional P-5'-P [Catalytic activity/Vol] 13 U/L 10-60 [facility] Serum or plasma albumin/glob ulin mass ratioOrdered By: Delano Francis on 08-07-2022 Albumin/Globulin [Mass ratio] 1.8 {ratio} [facility] Serum or plasma alkaline nova sphatase measurement (enzymatic activity/volume)Ordered By: Delano Francis on 08-07-2022 ALP [Catalytic activity/Vol] 52 U/L 32-92 [facility] Serum or plasma anion gap de terminationOrdered By: Delano Francis on 08-07-2022 Anion gap [Moles/Vol] 11.7 mmol/L 6.0-15.[address] [facility] Serum or plasma aspartate am inotransferase measurement (enzymatic activity/volume)Ordered By: Delano Francis on 08-07-2022 AST [Catalytic activity/Vol] 15 U/L 10-42 [facility] Serum or plasma calcium kevin urement (mass/volume)Ordered By: Delano Francis on 08-07-2022 Calcium [Mass/Vol] 9.8 mg/dL 8.2-10.2 [facility] Serum or plasma chloride ra surement (moles/volume)Ordered By: Delano Francis on 08-07-2022 Chloride [Moles/Vol] 101 mmol/L 95-114 [facility] Serum or plasma high density lipoprotein (HDL) cholesterol measurementOrdered By: Delano Francis on 08-07-2022 Cholesterol in HDL [Mass/Vol] 60 mg/dL 35-85 [facility] Comment on above: HDL CHOL ATP-III CLA SSIFICATION Cardiovascular Risk HDL > or equal to 60 mg/dL LOW HDL < 40 mg/dL HIGH HDL CHOL ATP-III CLA SSIFICATION Cardiovascular RiskHDL > or equal to 60 mg/dL LOWHDL < 40 mg/dL HIGH Serum or plasma potassium me asurement (moles/volume)Ordered By: Delano Francis on 08-07-2022 Potassium [Moles/Vol] 4.4 mmol/L 3.5-5.1 [facility] Serum or plasma sodium measu rement (moles/volume)Ordered By: Delano Francis on 08-07-2022 Sodium [Moles/Vol] 136 mmol/L 136-146 [facility] Serum or plasma total biliru bin measurement (mass/volume)Ordered By: Delano Francis on 08-07-2022 Bilirubin [Mass/Vol] 1.0 mg/dL 0.3-1.2 [facility] Serum or plasma total carbon dioxide measurement (moles/volume)Ordered By: Delano Francis on 08-07-2022 CO2 [Moles/Vol] 27.7 mmol/L 22.0-30.0 [facility] Serum or plasma total choles terol/high density lipoprotein (HDL) cholesterol mass ratOrdered By: Delano Francis on 08-07-2022 Cholesterol.total/Alivia sterol in HDL [Mass ratio] 4.2 {ratio} <5.0 [facility] Serum or plasma urea nitroge n measurement (mass/volume)Ordered By: Delano Francis on 08-07-2022 Urea nitrogen [Mass/Vol] 9 mg/dL 9- [facility] TSH DL <= 0.005 mIU/L QnOrde red By: Delano Francis on 08-07-2022 TSH Qn 1.43 m[IU]/L 0.45-5.33 [facility] T3, TOTAL (TRIIODOTHYRONINE) on 06-07-2022 T3, TOTAL 88 ng/dL Normal 71-180 [facility] Comment on above: Performed By: #### T 3TOTAL #### [facility] [address] [place] [address] Dr. Zonia Zhang FREE T4on 06-06-2022 Free T4 [Mass/Vol] 0.94 ng/dL Normal 0.76-1.46 [facility] Comment on above: Performed By: #### F T4 #### [facility] [address] [address] [address] Zonia Zhang TSHon 06-06-2022 TSH 1.364 uIU/mL Normal 0.358-3.74 0 [facility] Comment on above: Performed By: #### T SH #### [facility] [address] [address] [address] Zonia ABARCA Quick Testingon 2021 Result Positive [facility] Other Quick Fluon 12-27-2021 FLUAV Ab CF (S) [Titer] Negative [facility] Other FLUBV Ab CF (S) [Titer] Negative [facility] Other Vital Signs Date Time Vital Sign Value Performing Clinician Facility 03-30-2025 10:28-0400 Body mass index (BMI) [Ratio] 32.89 kg/m2 Ángel Sita DO Work Phone: [facility] 03-30-2025 10:28-0400 Body weight 95.25 kg Ángel Sita DO Work Phone: [facility] 03-30-2025 10:28-0400 Diastolic blood pressure 84 mm[Hg] Ángel Sita DO Work Phone: [facility] 03-30-2025 10:28-0400 Systolic blood pressure 120 mm[Hg] Ángel Sita DO Work Phone: [facility] 03-02-2025 09:58-0400 Body mass index (BMI) [Ratio] 31.76 kg/m2 Deisy MUNOZ Work Phone: [facility] 03-02-2025 09:58-0400 Body weight 91.99 kg Deisy MUNOZ Work Phone: [facility] 03-02-2025 09:58-0400 Diastolic blood pressure 72 mm[Hg] Deisy MUNOZ Work Phone: [facility] 03-02-2025 09:58-0400 Systolic blood pressure 120 mm[Hg] Deisy MUNOZ Work Phone: [facility] 02-02-2025 09:25-0500 Body mass index (BMI) [Ratio] 30.54 kg/m2 Ángel Sita DO Work Phone: [facility] 02-02-2025 09:25-0500 Body weight 88.45 kg Ángel Sita DO Work Phone: [facility] 02-02-2025 09:25-0500 Diastolic blood pressure 70 mm[Hg] Ánegl Sita DO Work Phone: [facility] 02-02-2025 09:25-0500 Systolic blood pressure 120 mm[Hg] Ángel Sita DO Work Phone: [facility] 10-18-2024 11:19-0500 Body height 170.18 cm Robles Ball DO Work Phone: [facility] 10-18-2024 11:19-0500 Body mass index (BMI) [Ratio] 29.7 kg/m2 Robles Ball DO Work Phone: [facility] 10-18-2024 11:19-0500 Body weight 86.23 kg Robles Ball DO Work Phone: [facility] 10-18-2024 11:19-0500 Diastolic blood pressure 77 mm[Hg] Robles Ball DO Work Phone: [facility] 10-18-2024 11:19-0500 Heart rate 88 /min Robles Ball DO Work Phone: [facility] 10-18-2024 11:19-0500 Respiratory rate 12 /min Robles Ball DO Work Phone: [facility] 10-18-2024 11:19-0500 Systolic blood pressure 111 mm[Hg] Robles Ball DO Work Phone: [facility] 09-13-2024 14:28-0400 Body mass index (BMI) [Ratio] 28.79 kg/m2 Ángel Sita DO Work Phone: [facility] 09-13-2024 14:28-0400 Body weight 83.37 kg Ángel Sita DO Work Phone: [facility] 09-13-2024 14:28-0400 Diastolic blood pressure 70 mm[Hg] Ángel Sita DO Work Phone: [facility] 09-13-2024 14:28-0400 Systolic blood pressure 120 mm[Hg] Ángel Buckner DO Work Phone: [facility] 05-03-2024 14:40-0400 Body height 170.18 cm [facility] 05-03-2024 14:40-0400 Body mass index (BMI) [Ratio] 28.3 kg/m2 [facility] 05-03-2024 14:40-0400 Body weight 82.1 kg [facility] 05-03-2024 14:40-0400 Diastolic blood pressure 82 mm[Hg] [facility] 05-03-2024 14:40-0400 Heart rate 78 /min [facility] 05-03-2024 14:40-0400 SaO2% (BldA) [Mass fraction] 98 % [facility] 05-03-2024 14:40-0400 Systolic blood pressure 122 mm[Hg] [facility] 01-06-2024 14:20-0500 Body height 170.2 cm Deisy Villar PA Work Phone: [facility] 01-06-2024 14:20-0500 Body mass index (BMI) [Ratio] 28.05 kg/m2 Deisy Adithya PA Work Phone: [facility] 01-06-2024 14:20-0500 Body weight 81.25 kg Deisy Adithya PA Work Phone: [facility] 01-06-2024 14:20-0500 Diastolic blood pressure 70 mm[Hg] Deisy Clinton PA Work Phone: [facility] 01-06-2024 14:20-0500 Systolic blood pressure 120 mm[Hg] Deisy Adithya PA Work Phone: [facility] 10-02-2023 10:00-0400 Body height 170.18 cm Robles Ball Other [employer] [facility] [facility] [employer] Other 10-02-2023 10:00-0400 Body mass index (BMI) [Ratio] 29.38 kg/m2 Robles Ball Other [employer] Other 10-02-2023 10:00-0400 Body weight 85.1 kg Rboles Ball Other [employer] Other 10-02-2023 10:00-0400 Diastolic blood pressure 83 mm[Hg] Robles Ball Other [employer] Other 10-02-2023 10:00-0400 Respiratory rate 12 /min Robles Ball Other [employer] Other 10-02-2023 10:00-0400 Systolic blood pressure 131 mm[Hg] Robles Ball Other [employer] Other 01-22-2023 10:30-0500 Body height 170.18 cm Robles Ball Other [employer] Other 01-22-2023 10:30-0500 Body mass index (BMI) [Ratio] 29.91 kg/m2 Robles Ball Other [employer] Other 01-22-2023 10:30-0500 Body weight 86.64 kg Robles Ball Other [employer] Other 01-22-2023 10:30-0500 Diastolic blood pressure 72 mm[Hg] Robles Ball Other [employer] Other 01-22-2023 10:30-0500 Respiratory rate 16 /min Robles Ball Other [employer] Other 01-22-2023 10:30-0500 Systolic blood pressure 122 mm[Hg] Robles Ball Other [employer] Other 09-26-2022 16:10-0400 Body height 170.18 cm Kiya Schaffer Other [employer] Other 09-26-2022 16:10-0400 Body mass index (BMI) [Ratio] 29.29 kg/m2 Kiya Schaffer Other [employer] Other 09-26-2022 16:10-0400 Body temperature 98.8 [degF] Kiya Schaffer Other [employer] Other 09-26-2022 16:10-0400 Body weight 84.82 kg Kiya Schaffer Other [employer] Other 09-26-2022 16:10-0400 Diastolic blood pressure 73 mm[Hg] Kiya Schaffer Other [employer] Other 09-26-2022 16:10-0400 Respiratory rate 18 /min Kiya Schaffer Other [employer] Other 09-26-2022 16:10-0400 SaO2% (BldA) [Mass fraction] 97 % Kiya Schaffer Other [employer] Other 09-26-2022 16:10-0400 Systolic blood pressure 125 mm[Hg] Kiya Schaffer Other [employer] Other 12-27-2021 10:15-0500 Body height 170.18 cm Elsi Leyla Other [employer] Other 12-27-2021 10:15-0500 Body mass index (BMI) [Ratio] 28.19 kg/m2 Elsiveronique Mayer Other [employer] Other 12-27-2021 10:15-0500 Body temperature 100.3 [degF] Elsi Mayer Other [employer] Other 12-27-2021 10:15-0500 Body weight 81.65 kg Elsi Mayer Other [employer] Other 12-27-2021 10:15-0500 Respiratory rate 18 /min Elsi Mayer Other [employer] Other 12-27-2021 10:15-0500 SaO2% (BldA) [Mass fraction] 98 % Elsi Mayer Other [employer] Other Encounters Encounter Date Encounter Type Care Provider Facility Start: 03-30-2025 End: 03-30-2025 Bamboo flowsheet Ángel Sita DO Work Phone: [facility] Start: 03-30-2025 End: 03-30-2025 Bamboo flowsheet Ángel Sita DO Work Phone: [facility] Start: 03-30-2025 End: 03-30-2025 flow sheet Ángel Sita DO Work Phone: [facility] Comment on above: Second trimester pre gnancy; 21 weeks gestation of ; Diabetes mellitus screening; Uterovaginal prolapse, incomplete; Encounter for follow-up ultrasound of anatomy Start: 03-30-2025 End: 03-30-2025 ambulatory ÁNGEL SITA Not Available Start: 03-21-2025 End: 03-21-2025 Clinisync Result Encounter Deisy MUNOZ Work Phone: [facility] External Department Unsolicited Start: 03-21-2025 End: 03-21-2025 Clinisync Result Encounter Deisy MUNOZ Work Phone: [facility] External Department Unsolicited Start: 03-02-2025 End: 03-02-2025 Bamboo flowsheet Deisy MUNOZ Work Phone: [facility] Start: 03-02-2025 End: 03-09-2025 Bamboo flowsheet Deisy MUNOZ Work Phone: [facility] Start: 03-02-2025 End: 03-09-2025 Clinisync Result Encounter Deisy MUNOZ Work Phone: [facility] Department Unsolicited Start: 03-02-2025 End: 03-03-2025 External Result Encounter Deisy MUNOZ Work Phone: [facility] Unsolicited Start: 03-02-2025 End: 03-02-2025 Patient encounter procedure Deisy MUNOZ Work Phone: [facility] Start: 03-02-2025 End: 03-02-2025 Periodic preventive med est patient 18-39 yrs Deisy MUNOZ Work Phone: [facility] Comment on above: 17 weeks gestation o f ; Second trimester ; Well woman exam with routine gynecological exam; Screening, , for anatomic survey; Exposure to STD; Vaginal discharge; Heartburn; Allergy, sequela Start: 03-02-2025 End: 03-02-2025 ambulatory DEISY VILLAR Not Available Start: 02-02-2025 End: 02-02-2025 Bamboo flowsheet Ángel Siat DO Work Phone: [facility] Start: 02-02-2025 End: 02-02-2025 Bamboo flowsheet Ángel Sita DO Work Phone: [facility] Start: 02-02-2025 End: 02-02-2025 flow sheet Ángel Sita DO Work Phone: [facility] Comment on above: 13 weeks gestation o f ; Second trimester Start: 02-02-2025 End: 02-02-2025 ambulatory ÁNGEL SITA Not Available Start: 01-13-2025 End: 01-13-2025 Clinisync Result Encounter Ángel Sita DO Work Phone: [facility] Unsolicited Start: 01-13-2025 End: 01-13-2025 Clinisync Result Encounter Ángel Sita DO Work Phone: [facility] Unsolicited Start: 01-05-2025 End: 01-05-2025 ambulatory ÁNGEL SITA Not Available Start: 12-12-2024 End: 12-12-2024 Clinisync [...] 10-18-2024 ambulatory Robles Ball DO Work Phone: [facility] Work Phone: Start: 10-18-2024 End: 10-18-2024 Encounter for general adult medical examination without abnormal findings Robles Ball DO Work Phone: [facility] Start: 10-18-2024 End: 10-18-2024 Patient encounter procedure Robles Ball DO Work Phone: [facility] Work Phone: Start: 10-16-2024 Patient encounter status Jermaine min Ball DO Work Phone: [facility] Start: 10-14-2024 Non-patient / Non-visit Benjam in Ball DO Work Phone: [facility] Work Phone: Start: 09-22-2024 End: 09-22-2024 Departed Referred DO Robles Ball Work Phone: [facility] Start: 09-22-2024 End: 09-22-2024 ambulatory DO Robles Ball Work Phone: [facility] Work Phone: Start: 09-13-2024 End: [...] gynecological exam Start: 09-13-2024 End: 09-13-2024 ambulatory ÁNGEL SITA Not Available Start: 08-29-2024 End: 08-29-2024 ambulatory [facility] Work Phone: Start: 08-29-2024 End: 08-29-2024 Patient encounter procedure [facility] Work Phone: Start: 05-03-2024 End: 05-03-2024 ambulatory [facility] Work Phone: Start: 05-03-2024 End: 05-03-2024 Patient encounter procedure [facility] Work Phone: Start: 2024 End: 2024 ambulatory DO Robles Ball Work Phone: [facility] Work Phone: Start: 2024 End: 2024 Patient encounter procedure DO Robles Charles Work Phone: [facility] Work Phone: Start: 01-07-2024 End: 01-07-2024 Patient encounter procedure DO Robles Charles Work Phone: [facility] [place] Work Phone: Start: 01-07-2024 End: 01-07-2024 ambulatory DO Robles Charles Work Phone: [facility] Work Phone: Start: 01-06-2024 End: 01-06-2024 Office outpatient visit 15 minutes Deisy MUNOZ Work Phone: [facility] Comment on above: Encounter for weight management; Hormone disorder; 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 Start: 10-02-2023 End: 10-02-2023 ambulatory Robles Charles Other [employer] Other Start: 10-02-2023 Encounter for genera l adult medical examination without abnormal findings Robles Charles [facility] Start: 10-02-2023 Periodic preventive med est patient 18-39 yrs Robles Charles [facility] Start: 09-17-2023 End: 09-17-2023 ambulatory MD Liz Conteh Work Phone: [facility] Work Phone: Start: 09-17-2023 End: 09-17-2023 Departed Referred MD Liz Conteh Work Phone: [facility]Employee Benefit Screening Start: 01-22-2023 End: 01-22-2023 ambulatory Robles Charles Other [employer] Other Start: 01-22-2023 Office outpatient vi sit 15 minutes Robles Charles [facility] Start: 01-12-2023 End: 01-12-2023 ambulatory Robles Charles Other [employer] Other Start: 01-12-2023 Telephone encounter Robles Charles [facility] Start: 12-24-2022 End: 12-24-2022 ambulatory Robles Charles Other [employer] Other Start: 12-24-2022 Office outpatient vi sit 15 minutes Robles Charles [facility] Start: 09-30-2022 End: 09-30-2022 ambulatory Kiya Schaffer Other [employer] Other Start: 09-30-2022 Telephone encounter Kiya Schaffer [facility] [address] Start: 09-26-2022 End: 09-26-2022 Departed Referred MD Liz Conteh Work Phone: [facility] [place] Start: 09-26-2022 End: 09-26-2022 ambulatory MD Liz Conteh Work Phone: [facility] Work Phone: Start: 09-26-2022 Office outpatient vi sit 15 minutes Kiya Schaffer [facility] Start: 09-25-2022 ([facility] C Vac) [facility] Co vid Vaccine Subha Dillon [facility] Start: 09-25-2022 End: 09-25-2022 ambulatory MD Liz Conteh Work Phone: [facility] Work Phone: Start: 09-25-2022 End: 09-25-2022 Patient encounter procedure MD Liz Conteh Work Phone: [facility]Cov[facility] Vaccine Off Site Start: 08-25-2022 End: 08-25-[address] ÁNGEL BUCKNER Facility:[facility] Start: 08-07-2022 End: 08-07-2022 Departed Referred MD Liz Conteh Work Phone: [facility]-Employee Benefit Screening Start: 06-06-2022 End: 06-07-[address] ROBLES CHARLES Facility:[facility] Start: 01-01-2022 End: 01-01-2022 ambulatory Elsi Mayer Other [employer] Other Start: 01-01-2022 Office outpatient vi sit 5 minutes Elsi Mayer [facility] Start: 12-27-2021 End: 12-27-2021 ambulatory Elsi Mayer Other [employer] Other Start: 12-27-2021 Office outpatient vi sit 15 minutes Elsi Mayer [facility] Start: 08-23-2021 ([facility] C Vac) [facility] Co vid Vaccine Subha Dillon [facility] Procedures Date Procedure Procedure Detail Performing Clinician Start: 03-30-2025 Urnls dip stick/tabl et rgnt non-auto w/o micrscp Ángel Sita DO Work Phone: Start: 03-21-2025 US OB ANATOMY Deisy MUNOZ Work Phone: Start: 03-21-2025 US OB CERVICAL LENGTH A rodriguez MUNOZ Work Phone: Start: 03-02-2025 RECURRENT VAGINITIS (HTRX) Deisy MUNOZ Work Phone: Start: 03-02-2025 Urnls dip stick/tabl et rgnt non-auto w/o micrscp Deisy MUNOZ Work Phone: Start: 03-02-2025 IGP,APTIMA HPV,AGE GDLN Deisy MUNOZ Work Phone: Start: 03-02-2025 Microscopic observat ion [Identifier] in Cervix by Cyto stain Deisy MUNOZ Work Phone: Start: 02-02-2025 Urnls dip stick/tabl et rgnt non-auto w/o micrscp Ángel Sita DO Work Phone: Start: 01-13-2025 ALL CBC WITH AUTO DIFF Ángel Sita DO Work Phone: Start: 12-12-2024 [facility] PREG QUANT HCG Core y Sita DO Work Phone: Start: 12-10-2024 [facility] PREG QUANT HCG Core y Sita DO Work Phone: Start: 09-13-2024 IGP,APTIMA HPV,AGE GDLN Ángel Sita DO Work Phone: Start: 09-13-2024 Microscopic observat ion [Identifier] in Cervix by Cyto stain Ángel Sita DO Work Phone: Start: 06-19-2020 Microscopic observat ion [Identifier] in Cervix by Cyto stain Deisy MUNOZ Work Phone: Plan of Treatment Date Care Activity Detail Author Start: 09-13-2029 Screening for malignant neoplasm of cervix [facility] Start: 03-02-2028 Screening for malignant neoplasm of cervix Pap Smear [facility] Start: 09-19-2025 End: 09-19-2025 Patient encounter procedure 09/19/2025 8:30 AM EDT Office Visit [facility] [address] [place] [address] Ángel Buckner, DO [address] [place] [address] [facility] Start: 07-31-2025 Influenza vaccination Influenza Vaccine (Season Ended) [facility] Start: 06-19-2025 Screening for malignant neoplasm of cervix [facility] Start: 05-01-2025 End: 05-01-2025 Patient encounter procedure 05/01/2025 8:30 AM EDT Routine [facility] [address] [place] [id number] Deisy Villar PA [address] [place] [address] [facility] Start: 04-18-2025 End: 04-18-2025 Professional / ancillary services management 04/18/2025 11:00 AM EDT Ancillary Procedure [facility] [address] [place] [address] [facility] Start: 04-03-2025 End: 04-03-2025 Patient encounter procedure 04/03/2025 9:50 AM EDT Routine [facility] [address] [place] [address] Ángel Buckner, DO [address] [place] [address] [facility] Start: 04-03-2025 End: 04-03-2025 Professional / ancillary services management 04/03/2025 8:00 AM EDT Ancillary Procedure [facility] [address] [place] [address] [facility] Start: 03-30-2025 End: 03-30-2026 CBC panel - Blood by Automated count CBC Lab Routine Second trimester Diabetes mellitus screening Expected: 03/30/2025 (Approximate), Expires: 03/30/2026 [facility] Work Phone: Comment on above: Expected: 03/30/2025 (Approximate), Expi res: 03/30/2026 Start: 03-30-2025 End: 03-30-2026 Measurement of glucose 1 hour after glucose challenge for glucose tolerance test Glucose tolerance, 1 hour Lab Routine Second trimester Diabetes mellitus screening Expected: 03/30/2025 (Approximate), Expires: 03/30/2026 [facility] Comment on above: Expected: 03/30/2025 (Approximate), Expi res: 03/30/2026 Start: 03-30-2025 End: 06-30-2025 US for US OB limited 1+ fetuses Imaging Routine Encounter for follow-up ultrasound of anatomy Expected: 03/30/2025, Expires: 06/30/2025 [facility] Comment on above: Expected: 03/30/2025, Expires: Start: 03-30-2025 End: 03-30-2025 Patient encounter procedure [facility] Comment on above: Arrived Start: 03-02-2025 End: 04-01-2025 Alpha fetoprotein, maternal Alpha fetoprotein, maternal Lab Routine 17 weeks gestation of Second trimester Expected: 03/02/2025 (Approximate), Expires: 04/01/2025 [facility] Comment on above: Expected: 03/02/2025 (Approximate), Expi res: 04/01/2025 Start: 03-02-2025 End: 03-02-2026 US for US OB 14+ weeks anatomy scan Imaging Routine Screening, , for anatomic survey Expected: 03/02/2025, Expires: 03/02/2026 [facility] Comment on above: Expected: 03/02/2025, Expires: Start: 03-02-2025 End: 03-02-2025 Patient encounter procedure 03/02/2025 9:30 AM EDT Routine [facility] [address] [place] [phone] Deisy Villar PA [facility] [place] [address] Arrived [facility] Comment on above: Arrived Start: 02-02-2025 End: 02-02-2025 Patient encounter procedure [facility] Comment on above: Arrived Start: 01-05-2025 End: 01-05-2025 ambulatory 01/05/2025 1:30 PM EST Initial [facility] [address] [place] [address] [facility] Start: 01-05-2025 End: 01-05-2025 Professional / ancillary services management 01/05/2025 1:00 PM EST Ancillary Procedure [facility] [address] [place] [address] [facility] Start: 09-13-2024 End: 09-13-2024 Patient encounter procedure [facility] Comment on above: Arrived Start: 07-31-2024 Influenza vaccination Influenza Vaccine (#1) [facility] Start: 02-03-2024 End: 02-03-2024 Patient encounter procedure 02/03/2024 1:50 PM EST Office Visit [facility] [address] [place] [address] Deisy Villar, PA [address] [place] [address] [facility] Start: 01-07-2024 Dehydroepiandrosterone sulfate level [facility] Start: 01-07-2024 Sex hormone binding globulin measurement [facility] Start: 01-07-2024 T3 reverse measurement [facility] Start: 01-07-2024 Thyroxine measurement [facility] Start: 01-07-2024 [facility] Start: 01-06-2024 End: 01-06-2025 Anti-thyroglobulin antibody Anti-thyroglobulin antibody Lab Routine Hormone disorder Expected: 01/06/2024 (Approximate), Expires: 01/06/2025 [facility] Comment on above: Expected: 01/06/2024 (Approximate), Expi res: 01/06/2025 Start: 01-06-2024 End: 01-06-2025 C-peptide C-peptide Lab Routine Hormone disorder Expected: 01/06/2024 (Approximate), Expires: 01/06/2025 [facility] Comment on above: Expected: 01/06/2024 (Approximate), Expi res: 01/06/2025 Start: 01-06-2024 End: 01-06-2025 Cortisol free Cortisol, free Lab Routine Hormone disorder Expected: 01/06/2024 (Approximate), Expires: 01/06/2025 [facility] Comment on above: Expected: 01/06/2024 (Approximate), Expi res: 01/06/2025 Start: 01-06-2024 End: 01-06-2025 Glucose [Mass/volume] in Serum or Plasma Glucose, random Lab Routine Hormone disorder Expected: 01/06/2024 (Approximate), Expires: 01/06/2025 [facility] Comment on above: Expected: 01/06/2024 (Approximate), Expi res: 01/06/2025 Start: 01-06-2024 End: 01-06-2025 Insulin, total Insulin, total Lab Routine Hormone disorder Expected: 01/06/2024 (Approximate), Expires: 01/06/2025 [facility] Comment on above: Expected: 01/06/2024 (Approximate), Expi res: 01/06/2025 Start: 01-06-2024 End: 01-06-2025 Serotonin serum Serotonin serum Lab Routine Hormone disorder Expected: 01/06/2024 (Approximate), Expires: 01/06/2025 [facility] Comment on above: Expected: 01/06/2024 (Approximate), Expi res: 01/06/2025 Start: 01-06-2024 End: 01-06-2025 Thyroglobulin Thyroglobulin Lab Routine Hormone disorder Expected: 01/06/2024 (Approximate), Expires: 01/06/2025 [facility] Comment on above: Expected: 01/06/2024 (Approximate), Expi res: 01/06/2025 Start: 01-06-2024 End: 01-06-2025 Thyrotropin [Units/volume] in Serum or Plasma [facility] Comment on above: Ordered: 01/06/2024 Expected: 01/06/2024 (Approximate), Expires: 01/06/2025 Start: 09-17-2023 [facility] Start: 08-07-2022 [facility] Work Phone: Calcitriol [Mass/vol ume] in Serum or Plasma [facility] CHLAMYDIA TRACHOMATI S (GENITO/STI) CHLAMYDIA TRACHOMATIS (GENITO/STI) Lab Routine Exposure to STD Ordered: 03/02/2025 [facility] Comment on above: Ordered: 03/02/2025 Cytology Cervical or vaginal smear or scraping study Pap Smear Pathology and Cytology Routine Well woman exam with routine gynecological exam Ordered: 09/13/2024 [facility] Work Phone: Comment on above: Ordered: 09/13/2024 Cytology Cervical or vaginal smear or scraping study Pap Smear Pathology and Cytology Routine Well woman exam with routine gynecological exam Ordered: 03/02/2025 [facility] Comment on above: Ordered: 03/02/2025 DHEA-sulfate DHEA-sulfate Lab Routine Hormone disorder Ordered: 01/06/2024 [facility] Comment on above: Ordered: 01/06/2024 Estradiol Estradiol Lab Ro utine Hormone disorder Ordered: 01/06/2024 [facility] Work Phone: Comment on above: Ordered: 01/06/2024 Estradiol (E2) [Mass /volume] in Serum or Plasma [facility] Estrone Estrone Lab Rout ine Hormone disorder Ordered: 01/06/2024 [facility] Comment on above: Ordered: 01/06/2024 Estrone (E1) [Mass/v olume] in Serum or Plasma [facility] Ferritin [Mass/volum e] in Serum or Plasma Ferritin Lab Routine Hormone disorder Ordered: 01/06/2024 [facility] Comment on above: Ordered: 01/06/2024 Hemoglobin A1c measurement Hemog lobin A1c Lab Routine Hormone disorder Ordered: 01/06/2024 [facility] Comment on above: Ordered: 01/06/2024 Human papilloma viru s DNA [Presence] in Unspecified specimen by Probe with amplification HPV DNA probe, amplified Microbiology Routine Well woman exam with routine gynecological exam Ordered: 09/13/2024 [facility] Comment on above: Ordered: 09/13/2024 Human papilloma viru s DNA [Presence] in Unspecified specimen by Probe with amplification HPV DNA probe, amplified Microbiology Routine Well woman exam with routine gynecological exam Ordered: 03/02/2025 [facility] Comment on above: Ordered: 03/02/2025 Insulin [Units/volum e] in Serum or Plasma [facility] Neisseria gonorrhoea e DNA [Presence] in Unspecified specimen by ROB with probe detection Neisseria gonorrhea DNA probe, direct Lab Routine Exposure to STD Ordered: 03/02/2025 [facility] Comment on above: Ordered: 03/02/2025 Progesterone Progesterone Lab Routine Hormone disorder Ordered: 01/06/2024 [facility] Comment on above: Ordered: 01/06/2024 Progesterone [Mass/v olume] in Serum or Plasma [facility] Serotonin [Mass/volu me] in Plasma [facility] Sex hormone binding globulin Sex hormone binding globulin Lab Routine Hormone disorder Ordered: 01/06/2024 [facility] Comment on above: Ordered: 01/06/2024 SURESWAB(R) ADVANCED VAGINITIS PLUS, TMA SURESWAB(R) ADVANCED VAGINITIS PLUS, TMA Pathology and Cytology Routine Vaginal discharge Ordered: 03/02/2025 [facility] Work Phone: Comment on above: Ordered: 03/02/2025 T3, reverse T3, reverse Lab Routine Hormone disorder Ordered: 01/06/2024 [facility] Comment on above: Ordered: 01/06/2024 Testosterone Free [Mass/volume] in Serum or Plasma [facility] TESTOSTERONE, FREE TESTOSTERONE, FREE Lab Routine Hormone disorder Ordered: 01/06/2024 [facility] Comment on above: Ordered: 01/06/2024 Testosterone, free, total Testos terone, free, total Lab Routine Hormone disorder Ordered: 01/06/2024 [facility] Comment on above: Ordered: 01/06/2024 Throat culture Throat Culture [facility] Thyroglobulin Ab [Units/volume] in Serum or Plasma [facility] Thyroid peroxidase antibody Thyr oid peroxidase antibody Lab Routine Hormone disorder Ordered: 01/06/2024 [facility] Comment on above: Ordered: 01/06/2024 Thyroperoxidase Ab [Units/volume] in Serum or Plasma [facility] Thyroxine (T4) free [Mass/volume] in Serum or Plasma T4, free Lab Routine Hormone disorder Ordered: 01/06/2024 [facility] Comment on above: Ordered: 01/06/2024 Triiodothyronine (T3 ) Free [Mass/volume] in Serum or Plasma T3, free Lab Routine Hormone disorder Ordered: 01/06/2024 [facility] Comment on above: Ordered: 01/06/2024 Vitamin D 1,25 dihydroxy Vitamin D 1,25 dihydroxy Lab Routine Hormone disorder Ordered: 01/06/2024 [facility] Comment on above: Ordered: 01/06/2024 [facility] Work Phone: Immunizations Immunization Date Immunization Notes Care Provider Naeem pablo 09-15-2023 influenza, injectabl e, quadrivalent, preservative free [facility] 09-15-2023 influenza virus vaccine, unspecified formulation Ángel Buckner DO Work Phone: [facility] 09-25-2022 COVID-19 Moderna (BIvalent) Kiya Schaffer Other [facility] 08-23-2021 COVID-19 Pfizer Subha Fitt Other [facility] 07-31-2021 COVID-19 Pfizer Subha Fitt Other [facility] 05-19-2021 diphtheria, tetanus toxoids and pertussis vaccine [facility] Payers Date Payer Category Payer Self-pay [id number] 2022 Private Health Insurance [employer] [id number] 2022 Unknown [employer] [id number] 2022-Present [address] [place] [address] [id number] 1990 Unknown [id number] 1990 Unknown [id number] 1990 Unknown [id number] 1990 Unknown [id number] 1990 Unknown [id number] 1990 Unknown [id number] 1990 Unknown [id number] 1990 Unknown [id number] 1959 Unknown [id number] Unknown [id number] Unknown [id number] Worker's Compensation [facility] C t [place] [id number] Social History Date Type Detail Facility Start: 10-13-2023 End: 09-13-2024 Sex Assigned At [facility] Start: 1990 Sex Assigned At Female F [facility] Start: 08-13-2023 End: 05-03-2024 Tobacco smoking status NHIS Never smoked tobacco [facility] Start: 01-06-2024 End: 03-02-2025 Alcohol intake Current drinker of alcohol (finding) [facility] Start: 10-13-2023 End: 09-13-2024 History of Social function [facility] How [...] [facility] Start: 10-18-2024 Sex Female (finding) [facility] Start: 11-16-2024 [facility] Clinical Notes 08-23-2021 to 03-30-2025 Mary Lou Kearney LPN - 03/30/2025 10:10 AM ALEXANDER Abbott - 03/02/2025 9:30 AM ALEXANDER Abbott - 02/02/2025 9:10 AM Yolanda Charlton LPN - 09/13/2024 2:00 PM ALEXANDER Abbott - 01/06/2024 2:20 PM EST Note Date & Type Note Facility 03-30-2025 History of Presen t illness Narrative Reason for Appointment: Patient ID: Michelet Reyes is a 35 y.o. female who presents for Routine Visit Patient presents today for Return OB appointment. MEDICATIONS Current Outpatient Medications Medication Instructions aspirin 81 mg, Daily fluticasone (Flonase Allergy Relief) 50 MCG/ACT nasal spray 1 spray, Each Nostril, Daily, Shake gently. Before first use, prime pump. After use, clean tip and replace cap. omeprazole (PRILOSEC) 40 mg, Oral, Daily before breakfast MV-Min-Fe Fum-FA-DHA ( 1 [...] SYSTEMS Review of Systems: Review of Systems All other systems reviewed and are negative. OBJECTIVE Objective: Physical Exam Constitutional: Appearance: Normal appearance. She is well-developed. Cardiovascular: Rate and Rhythm: Normal rate and [...] nursing note reviewed. Exam conducted with a commercial artist lettering present. Vitals: Estimated body mass index is 32.89 kg/m as calculated from the following: Height as of 01/06/24: 5' 7 . Weight as of this encounter: 210 lb. BP: 120/84 Patient's last menstrual period was 11/02/2024. ASSESSMENT & PLAN ICD-10-CM 1. Second trimester Z34.92 POCT urinalysis dipstick manually resulted CBC Glucose tolerance, 1 hour CBC Glucose tolerance, 1 hour 2. 21 weeks gestation of Z3A.21 3. Diabetes mellitus screening Z13.1 CBC Glucose tolerance, 1 hour CBC Glucose tolerance, 1 hour 4. Uterovaginal prolapse, incomplete N81.2 5. Encounter for follow-up ultrasound of anatomy Z36.2 US OB limited 1+ fetuses Patient presents today for a routine obstetrics appointment. Patient is currently 21w1d with a Estimated Date of Delivery: 08/09/25. Gave patient order to have 1 hour gtt and CBC done prior to next appointment. Patient also given Ultrasound order to have done 4 weeks from previous scan to clear anatomy. Patient to return to clinic in 4 weeks. Documented by Mary Lou Kearney LPN on behalf of: Ángel Buckner DO documented in this encounter [facility] 03-02-2025 History of Presen t illness Narrative Reason for Appointment: Patient ID: Michelet Reyes is a 35 y.o. female who presents for Routine Visit Patient presents today for Annual Exam. and Return OB appointment. MEDICATIONS Current Outpatient Medications Medication Instructions aspirin 81 mg, Daily omeprazole (PRILOSEC) 40 mg, Daily before breakfast ondansetron ODT (ZOFRAN-ODT) 4 mg, Oral, Every 6 hours PRN MV-Min-Fe Fum-FA-DHA ( 1 PO) 1 tablet, [...] appearance. She is well-developed. Genitourinary: Vulva normal. Right Adnexa: not tender and no mass present. Left Adnexa: not tender and no mass present. No cervical discharge. Breasts: Breasts are soft. Right: Normal. Left: Normal. HENT: Head: Normocephalic. Nose: Nose normal. Mouth/Throat: Mouth: Mucous membranes are moist. Cardiovascular: Rate and Rhythm: Normal rate and regular rhythm. Pulmonary: Effort: Pulmonary effort is normal. Breath sounds: Normal breath sounds. Abdominal: General: Bowel sounds are normal. There is no distension. Palpations: Abdomen is soft. Tenderness: There is no abdominal tenderness. There is no guarding or rebound. Musculoskeletal: General: No swelling. Normal range of motion. Cervical back: Normal range of motion. Right lower leg: No edema. Left lower leg: No edema. Neurological: General: No focal deficit present. Mental Status: She is alert and oriented to person, place, and time. Skin: General: Skin is warm and dry. Psychiatric: Mood and Affect: Mood normal. Behavior: Behavior normal. Vitals and nursing note reviewed. Exam conducted with a commercial artist lettering present. Vitals: Estimated body mass index is 31.76 kg/m as calculated from the following: Height as of 01/06/24: 5' 7 . Weight as of this encounter: 202 lb 12.8 oz. BP: 120/72 Patient's last menstrual period was 11/02/2024. ASSESSMENT & PLAN ICD-10-CM 1. 17 weeks gestation of Z3A.17 POCT urinalysis dipstick manually resulted Alpha fetoprotein, maternal Alpha fetoprotein, maternal 2. Second trimester Z34.92 POCT urinalysis dipstick manually resulted Alpha fetoprotein, maternal Alpha fetoprotein, maternal 3. Well woman exam with routine gynecological exam Z01.419 Pap Smear HPV DNA probe, amplified 4. Screening, , for anatomic survey Z36.89 US OB 14+ weeks anatomy scan US OB 14+ weeks anatomy scan 5. Exposure to STD Z20.2 CHLAMYDIA TRACHOMATIS (GENITO/STI) Neisseria gonorrhea DNA probe, direct 6. Vaginal discharge N89.8 SURESWAB(R) ADVANCED VAGINITIS PLUS, TMA Return OB/Annual Exam: Patient presents today for an annual exam/routine obstetrics appointment. Patient is currently 17w1d . Patient is doing well and states she has no complaints. Pap/cultures was obtained without difficulty and patient was given msAFP order to have obtained. Orders Placed This Encounter Procedures HPV DNA probe, amplified US OB 14+ weeks anatomy scan CHLAMYDIA TRACHOMATIS (GENITO/STI) Neisseria gonorrhea DNA probe, direct Alpha fetoprotein, maternal POCT urinalysis dipstick manually resulted Follow Up: Patient is to return to our office in 4 weeks for routine OB appointment Documented by Camille Lawrence LPN on behalf of: ALEXANDER Gramajo documented in this encounter [facility] 02-02-2025 History of Presen t illness Narrative Reason for Appointment: Patient ID: Michelet Reyes is a 34 y.o. female who presents for Routine Visit Patient presents today for Return OB appointment. MEDICATIONS Current Outpatient Medications Medication Instructions omeprazole (PRILOSEC) 40 mg, Daily before breakfast ondansetron ODT (ZOFRAN-ODT) 4 mg, Oral, Every 6 hours PRN MV-Min-Fe Fum-FA-DHA ( 1 PO) 1 tablet, Daily Progesterone 200 mg, Vaginal, Nightly, Insert suppository vaginally every night at bedtime until 12 weeks gestation ALLERGIES Allergies Allergen Reactions Amoxicillin Hives Penicillin [...] reviewed. Vitals: Estimated body mass index is 30.54 kg/m as calculated from the following: Height as of 01/06/24: 5' 7 . Weight as of this encounter: 195 lb. BP: 120/70 Patient's last menstrual period was 11/02/2024. ASSESSMENT & PLAN ICD-10-CM 1. 13 weeks gestation of Z3A.13 POCT urinalysis dipstick manually resulted 2. Second trimester Z34.92 POCT urinalysis dipstick manually resulted Return OB: Patient presents today for a routine obstetrics appointment. Patient is currently 13w1d . Patient states she is doing well but has complaints of being tired due to current . Patient has verbalizes frequent movement. Patient is concidered advanaced maternal age, pt will start baby asa daily, nst and bpp at 32 weeks Mfm deferred at this time, will see if needed in future Orders Placed This Encounter Procedures POCT urinalysis dipstick manually resulted Follow Up: Patient is to return to office in 4 week for routine OB appointment. Documented by ALEXANDER Gramajo on behalf of: Ángel Buckner DO documented in this encounter [facility] 09-13-2024 History of Presen t illness Narrative [...] nursing note reviewed. Exam conducted with a commercial artist lettering present. Vitals: Estimated body mass index is [...] Ángel Buckner DO documented in this encounter [facility] 01-06-2024 History of Presen t illness Narrative [...] Diagnosis Date Fatigue GARTH (generalized anxiety disorder) ([facility]) Hyperlipidemia (CMS/HCC) Paronychia, finger Family History Problem Relation Name [...] of: ALEXANDER Gramajo documented in this encounter [facility] 10-02-2023 Evaluation note Encounter Date Diagnosis Assessment [...] prior to bedtime. Weight loss. Pepcid PRN [employer] Other 2023 Evaluation note* Encounter Date Diagnosis Assessment Notes Treatment Notes Treatment Clinical Notes Dec, Nasal turbinate hypertrophy (ICD-10 - J34.3) FLonase, saline NS, Sudafed and avoid use of Afin. Refer to ENT. Dec, Nonallergic vasomotor rhinitis (ICD-10 - J30.0) Prednisone tapered over 8 days. Claritin as needed. [employer] Other 02-13-2023 Evaluation note* Encounter Date Diagnosis Assessment Notes Treatment Notes Treatment Clinical Notes Dec, Acute non-recurrent maxillary sinusitis (ICD-10 - J01.00) [employer] Other 01-25-2023 Evaluation note* Encounter Date Diagnosis Assessment Notes Treatment Notes Treatment Clinical Notes Nov, Acute non-recurrent maxillary sinusitis (ICD-10 - J01.00) Instructed to use Robitussin or Mucinex for cough, saline or Flonase NS for congestion, Tylenol for pain and fever. [employer] Other 10-28-2022 Evaluation note* Encounter Date Diagnosis [...] (suspected) exposure to covid-19 (ICD-10 - Z20.822) [employer] Other 10-27-2022 Evaluation note* Encounter Date Diagnosis Assessment Notes Treatment Notes Treatment Clinical Notes Aug, Encounter for immunization (ICD-10 - Z23) Patient presents today for COVID-19 vaccination booster. Patient pre-vaccination form answers reviewed. Patient denies current illness or allergic reaction to any component of a COVD-19 vaccine. Patient provided with copy of current EUA. [employer] Other 02-02-2022 Evaluation note* Encounter Date Diagnosis [...] Patient care instructions given in writting by [facility] At Home document. Additional time spent conducting pre-visit phone call, screening for symptoms, instructions on social distancing, application and removal of PPE, and cleaning of examination room, equipment and supplies was preformed. Patient education given for testing methodology and results. Patient care instructions given in writting by [employer] [facility] At Home document. [employer] Other 01-28-2022 Evaluation note* Encounter Date Diagnosis [...] Patient care instructions given in writting by [employer] At Home document. [employer] Other 09-24-2021 Evaluation note* Encounter Date Diagnosis Assessment Notes Treatment Notes Treatment Clinical Notes Jul, Encounter for immunization (ICD-10 - Z23) Patient presents for COVID-19 vaccination #2. Pre-screening form answers evaluated with patient. Patient denies current illness or allergic reaction to component of COVID-19 vaccine. Patient provided with current copy of EUA. [employer] Other Evaluation noteNo assessment information available [facility] Work Phone: Evaluation noteNo InformationNort [facility] Other Evaluation note* Diagnosis Encounter for weight management Hormone disorder Unspecified endocrine disorder 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 [facility] Diagnosis Well woman exam with routine gynecological exam Routine gynecological examination [facility]* Diagnosis Onset Date Resolution Status Admit Date Hypercholesteremia acute Novemb er 2023 11:13am Wellness examination acute Nove mber 2023 11:13am [facility] Work Phone: Evaluation note* Diagnosis 13 weeks gestation of Second trimester state, incidental [facility]* Diagnosis 17 weeks gestation of Second trimester state, incidental Well woman exam with routine gynecological exam Routine gynecological examination Screening, , for anatomic survey Encounter for anatomic survey Exposure to STD Vaginal discharge Leukorrhea, not specified as infective Heartburn Allergy, sequela [facility] Diagnosis Second trimester state, incidental 21 weeks gestation of Diabetes mellitus screening Screening for diabetes mellitus Uterovaginal prolapse, incomplete Encounter for follow-up ultrasound of anatomy [facility] - [facility]* Type Description Date Medical History Child X2 Natural Surgical History No know Surgical history Hospitalization History see above [employer] Other [facility] general Narrative - Reported* Type Description Date Medical History Child X2 Natural Surgical History No Surgical history information Hospitalization History see above [employer] Other [employer] general Narrative - Reported* Type Description Date Medical History Child X2 Natural Medical History Body mass index (BMI) of 25.0 to 29.9 Medical History Fatigue Medical History Hyperlipidemia, group A Medical History GARTH (generalized anxiety disorde r) Surgical History No know Surgical history Hospitalization History No know Hospitalization history [employer] Other Chief Complaint and Reason for Visit [...] Nasal turbinate hype rtrophy (J34.3) Referral Organization [facility] Nela russo Referring Provider First Name Robles Referring Provider Last Name Nela Referring Provider Specialty Internal Me dicine Referred Organization [facility] Referred Provider Robles Hernandez Referred Address ,[place], [place],[address] Referred Provider Specialty Otolaryngolo gy Referral Priority Routine Referral Appointment Date 2023-02-04 General Notes Rosangela Cruz 09:25:33 AM >received today, notes locked, insurance card attached, referral faxed Rosangela Cruz 01/29/2023 12:42:25 PM >Shannan at Dr. Rodriges office requested referral be faxed again to [phone]. done! Rosangela Cruz 02/05/2023 02:23:23 PM >notes being sent over now Rosangela Cruz 02/10/2023 08:41:31 AM >NOTES RECEIVED AND SENT FOR REVIEW Additional Source Comments REASON FOR VISIT (unrecogniz ed section and content) Reason Comments Adipex #5 Reason Comments Well Women Visit Reason Comments Routine Visit Care Teams (unrecognized sec tion and content) Team Status: Inactive Member Role Status Dates Liz Conteh MD Primary Care Provider Active Delano Francis DO [facility] Attending Provider Active Team Status: Active [...] January 07, 2024 End: January 07, 2024 Size Maker Relationship Specialty Start Date End Date Robles Charles MD [address] [place] [phone] PCP - General Internal Medicine 07/30/23 Team Status: Inactive Member Role Status Dates Robles Charles DO Primary Care Provide r, Attending Provider Active Start: 2024 End: 2024 Team Status: Inactive Member Role Status Dates Robles Charles DO Primary Care Provider Active Start: May 03, 2024 End: May 03, 2024 Caro Chacon APRN [employer] Attending Provider Act alex Start: May 03, 2024 End: May 03, 2024 Team Status: Inactive Member Role Status Dates Robles Charles DO Primary Care Provide r, Attending Provider Active Start: August 29, 2024 End: August 29, 2024 Size Maker Relationship Specialty Start Date End Date Robles Charles MD [address] [place] [phone] PCP - General Internal Medicine 07/30/23 Deisy Villar PA [address] [place] [address] [place] [phone] PCP - Medical [place] [employer] 11/30/23 11/29/99 Size Maker Relationship Specialty Start Date End Date Robles Charles MD [address] [place] [phone] PCP - General Internal Medicine 07/30/23 Deisy Villar PA [address] [place] [address] [place] [address] PCP - Medical [place] [employer] 11/30/23 11/29/99 Size Maker Relationship Specialty Start Date End Date Robles Charles MD [address] [place] [phone] PCP - General Internal Medicine 07/30/23 Deisy Villar PA [address] [place] [address] [place] [address] PCP - Medical [place] [employer] 11/30/23 11/29/99 Team Status: Inactive Member Role Status Dates Robles Charles DO Primary Care Provider Active Start: September 22, 2024 End: September 22, 2024 Delano Escobedo [facility] , DO [facility] Attending Provider Active Start: September 22, 2024 End: September 22, 2024 Team Status: Active Member Role Status Dates Robles Charles DO Primary Care Provide r, Attending Provider Active Start: October 14, 2024 Team Status: Inactive Member Role Status Dates Robles Charles DO Primary Care Provide r, Attending Provider Active Start: October 18, 2024 End: October 18, 2024 Size Maker Relationship Specialty Start Date End Date Robles Charles MD [address] [place] [phone] PCP - General Internal Medicine 07/30/23 Deisy Villar PA [address] [place] [address] [place] [address] PCP - Medical [place] [employer] 11/30/23 11/29/99 Size Maker Relationship Specialty Start Date End Date Robles Charles MD [address] [place] [phone] PCP - General Internal Medicine 07/30/23 Deisy Villar PA [address] [facility] [place] [address] PCP - Medical [place] [employer] 11/30/23 11/29/99 Size Maker Relationship Specialty Start Date End Date Robles Charles MD [address] [facility] [place] [phone] PCP - General Internal Medicine 07/30/23 Deisy Villar PA [address] [facility] [place] [address] PCP - Medical [place] [employer] 11/30/23 11/29/99 Size Maker Relationship Specialty Start Date End Date Robles Charles MD [address] [facility] [place] [phone] PCP - General Internal Medicine 07/30/23 Deisy Villar PA [address] [facility] [place] [address] PCP - Medical [place] [employer] 11/30/23 11/29/99 Size Maker Relationship Specialty Start Date End Date Robles Chalres MD PCP - General Internal Medicine 07/30/23 Deisy Villar PA [address] [facility] [place] [address] PCP - Medical [place] [employer] 11/30/23 11/29/99 Size Maker Relationship Specialty Start Date End Date Robles Charles DO PCP - General Internal Medicine 07/30/23 Deisy Villar PA [address] [place] [address] PCP - Medical [place] [employer] 11/30/23 11/29/99 Size Maker Relationship Specialty Start Date End Date Robles Charles DO [address] [facility] [place] [address] PCP - General Internal Medicine 07/30/23 Deisy Villar PA [address] [facility] [place] [address] PCP - Medical [place] [employer] 11/30/23 11/29/99 Goals (unrecognized section and content) Goals may be documented in a n alternate section INFORMATION SOURCE (unrecogn ized section and content) DATE CREATED AUTHOR 09/02/2022 [facility] DATE CREATED AUTHOR AUTHOR'S ORGANIZ ATION 09/23/2024 [facility] DATE CREATED AUTHOR AUTHOR'S ORGANIZ ATION 04/04/2025 [facility] EPIC FOR RECORDS PERTAINING TO PATIENTS WHO ARE [...] BE BASED ON THE PRIMARY CLINICAL RECORDS. [employer] provides no warranty or guarantee of the accuracy or completeness of information in this document.
[2025-04-18 09:36] LABS: Basophils Percent Auto 0.2 % (0.2-2.0); Eosinophils Absolute Auto 0.1 10^3/uL (0.0-0.7); Eosinophils Percent Auto 1.2 % (0.9-7.0); Hematocrit 31.9 % (36.0-48.0); Hemoglobin 10.6 g/dL (12.0-16.0); Immature Granulocytes Abs Auto 0.06 10^3/uL (0.00-0.03); Immature Granulocytes Pct Auto 0.6 % (0.0-0.5); Lymphocytes Absolute Auto 1.6 10^3/uL (1.2-3.8); Lymphocytes Percent Auto 15.6 % (20.5-60.0); Mean Corpuscular HGB Conc 33.2 g/dL (29.9-35.2); Mean Corpuscular Hemoglobin 32.6 pg (26.7-34.0); Mean Corpuscular Volume 98.2 fL (81.0-99.0); Monocytes Absolute Auto 0.6 10^3/uL (0.3-0.8); Neutrophils Absolute Auto 7.7 10^3/uL (1.4-6.5); Neutrophils Percent Auto 76.4 % (43.0-75.0); Platelet Count 313 10^3/uL (150-450); Red Blood Count 3.25 10^6/uL (4.20-5.40); Red Cell Distribution Width 13.2 % (11.0-15.0); White Blood Count 10.1 10^3/uL (4.0-11.0)
[2025-04-18 09:40] LABS: Glucose 1 Hour 96 mg/dL (<130)
== END 2025-04-18 08:17 | disposition home or self-care (01) ==
LOC: LAB 08:17
PROVIDERS: PCP Internal Medicine; Visit Provider Obstetrics & Gynecology
DX: Z34.92 Encounter for supervision of normal pregnancy, unspecified, second trimester (principal)
CPT/HCPCS: 82950; 85025

== ENCOUNTER 2025-05-11 13:48 | Outpatient (OUT) | payer OTHER, SELFPAY ==
--- OUTSIDE RECORDS SUMMARY | 2025-05-01 08:30 | XMS_ITS | Encounter Summary ---
Author Organization [facility] Address [address] [place] [address] Care Team Providers Care Hand Box Folder Name Role Phone MelvinRobles Primary Care Provider [phone] Deisy Haji Unavailable Reason for Visit * Reason Comments Routine Visit Encounter Details Date Type Department Care Team (Latest Contact Info) Description 05/01/2025 8:30 AM EDT Routine [facility] [address] [place] [address] Deisy Haji PA [address] [facility] [place] [address] size inconsistent with dates ([facility]) (Primary Dx); Second trimester ([facility]); 25 weeks gestation of ([facility]) Social History Tobacco Use Types Packs/Day Years Used Date Smoking Tobacco: Never Alcohol Use Standard Drinks/Week Comments Yes 0 (1 standard drink = 0.6 oz pur e alcohol) Caffeine intake: none AUDIT-C Answer Date Recorded Q1: How often do you have a drink containing alc ohol? Monthly or less 10/13/2023 Average Number of Drinks Not on file 023 Q3: How often do you have si x or more drinks on one occasion? Never 10/13/2023 Estimated Date of Delivery Comme nts Yes 08/09/2025 Based on last me nstrual period of 11/02/2024 Sex and Gender Information Value Date Recorded Sex Assigned at Female 06/25/2023 5:45 PM EDT Legal Sex Female 11:47 PM EDT Gender Identity Female 06/25/2023 5:45 PM EDT Sexual Orientation Not on file documented as of this encounter Last Filed Vital Signs Vital Sign Reading Time Taken Comments Blood Pressure 118/74 05/01/2025 8:36 AM EDT Pulse - - Temperature - - Respiratory Rate - - Oxygen Saturation - - Inhaled Oxygen Concentration - - Weight 99.7 kg (219 lb 12.8 oz) 05/01/2025 8:36 AM EDT Height - - Body Mass Index 34.43 01/06/2024 2:20 PM EST documented in this encounter Progress Notes * Jayda Dewitt NP - 05/01/2025 8:30 AM EDT Reason for Appointment: Patient ID: Michelet Reyes [...] anxiety disorder) ([facility]) Hyperlipidemia ([facility]) Paronychia, finger HISTORY PAST MEDICAL HISTORY SOCIAL HISTORY Past Medical History: Diagnosis Date Fatigue GARTH (generalized anxiety disorder) ([facility]) Hyperlipidemia (CMS/HCC) Paronychia, finger Social History Tobacco [...] nursing note reviewed. Exam conducted with a forest management teacher present. Vitals: Estimated body mass index is 34.43 kg/m?? as calculated from the following: Height as of 01/06/24: 5' 7 . Weight as of this encounter: 219 lb 12.8 oz. BP: 118/74 Patient's last menstrual period was 11/02/2024. ASSESSMENT & PLAN ICD-10-CM 1. size inconsistent with dates O26.849 US OB follow up transabdominal approach 2. Second trimester Z34.92 3. 25 weeks gestation of Z3A.25 Return OB: Patient presents today for a routine obstetrics appointment. Patient is currently 25w5d . Patient states she is doing well but has complaints of being tired due to current . Patient has verbalizes frequent movement. labor precautions was discussed/given and patient was instructed to perform kick counts three times a day. Orders Placed This Encounter Procedures US OB follow up transabdominal approach Follow Up: Patient is to return to office in 3 weeks for routine OB appointment. Documented by Jayda Dewitt NP on behalf of: Jayda Dewitt NP documented in this encounter Plan of Treatment Upcoming Encounters Date Type Department Care Team (Late st Contact Info) Description 05/30/2025 8:50 AM EDT Routine [facility] [address] [place] [phone] Ángel Buckner, DO [address] [place] [address] 09/19/2025 8:30 AM EDT Office Visit [facility] [address] [place] [phone] Ángel Buckner, DO [address] [place] [address] Scheduled Orders Name Type Priority Associated Diagnoses Orde r Schedule US OB follow up transabdominal approach Imaging Routine size inconsistent with dates ([facility]) Expected: 05/01/2025, Expires: 08/31/2025 documented as of this encounter Visit Diagnoses Diagnosis size inconsistent with dates ([facility])- Primary Second trimester ([facility]) state, incidental 25 weeks gestation of ([facility]) documented in this encounter Care Teams Hand Box Folder Relationship Specialty Start Date End Date Robles Charles DO [address] [facility] [place] [address] PCP - General Internal Medicine 07/30/23 Deisy Haji PA [address] [place], [place] [phone] PCP - Medical [place] [employer] 11/30/23 11/29/99 documented as of this encounter
--- OUTSIDE RECORDS SUMMARY | 2025-05-11 13:50 | XMS_ITS | Clinical Summary ---
Author Organization [facility] Address [address] [place] [address] Care Team Providers Care Clay Artist Name Role Phone Robles Charles DO Primary Care Provider [phone] Deisy Villar Unavailable Allergies Active Allergy Reactions Criticality Noted Date Comments Amoxicillin Hives 08/06/2023 Penicillin G Unknown 08/06/2023 Medications MV-Min-Fe Fum-FA-DHA ( 1 PO) Take 1 tablet by mouth Daily Active aspirin 81 MG EC tablet Take 81 mg by mouth Daily Active omeprazole (PriLOSEC) [address] Benitez ons:Heartburn Take 1 capsule (40 mg) by mouth in the morning. Take before meals. 30 capsule 11 5 02/26/20 26 Active fluticasone (Flonase Allergy Relief) 50 MCG/ACT nasal sprayIndication s:Allergy, sequela Administer 1 spray into each nostril Daily Shake gently. Before first use, prime pump. After use, clean tip and replace cap. 16 g 12 5 03/02/20 26 Active Encounters Date Type Department Care Team Description 05/01/2025 8:30 AM EDT Routine [facility] [address] [facility] [place] [address] Deisy Villar PA size inconsistent with dates ([facility]) (Primary Dx); Second trimester ([facility]); 25 weeks gestation of ([facility]) 05/01/2025 Bamboo flowsheet [facility] OB [address] [place] [address] Deisy Villar PA 04/18/2025 11:00 AM EDT Ancillary Procedure [facility] [address] [place] [address] Encounter for follow-up ultrasound of anatomy ([facility]) 04/18/2025 Clinisync Result Encounter [facility] External Department Unsolicited Ángel Buckner DO 03/30/2025 10:10 AM EDT Routine [facility] [address] [place] [address] Ángel Buckner, DO Second trimester ([facility]); 21 weeks gestation of ([facility]); Diabetes mellitus screening; Uterovaginal prolapse, incomplete; Encounter for follow-up ultrasound of anatomy ([facility]) 03/30/2025 Bamboo flowsheet [facility] [address] [place] [address] Ángel Buckner DO 03/21/2025 Clinisync Result Encounter [facility] External Department Unsolicited Deisy Villar PA 03/21/2025 Clinisync Result Encounter [facility] External Department Unsolicited Deisy Villar PA 03/09/2025 Orders Only [facility] [address] [place] [address] Camille Lawrence LPN 03/02/2025 9:30 AM EDT Routine [facility] [address] [place] [address] Deisy Villar PA 17 weeks gestation of ([facility]); Second trimester ([facility]); Well woman exam with routine gynecological exam; Screening, , for anatomic survey ([facility]); Exposure to STD; Vaginal discharge; Heartburn; Allergy, sequela 03/02/2025 Clinisync Result Encounter [facility] External Department Unsolicited Deisy Villar PA 03/02/2025 External Result Encounter [facility] External Department Unsolicited Deisy Villar PA 03/02/2025 Bamboo flowsheet [facility] [address] [place] [address] Deisy Villar PA 03/01/2025 Travel 02/21/2025 Refill [facility] OB [address] [facility] [place] [address] Camille Lawrnece LPN Nausea from Last 3 Months Family History Medical History Relation Name Comments Hypertension Father Relation Name Status Comments Father Alive Mother Alive Paternal Grandfather Paternal Grandmother Social History Tobacco Use Types Packs/Day Years Used Date Smoking Tobacco: Never Tobacco Cessation:Counseling Given: Not Answered Alcohol Use Standard Drinks/Week Comments Yes 0 [...] PM EDT Sexual Orientation Not on file Last Filed Vital Signs Vital Sign Reading Time Taken Comments Blood Pressure 118/74 05/01/2025 8:36 AM EDT Pulse - - Temperature - - Respiratory Rate - - Oxygen Saturation - - Inhaled Oxygen Concentration - - Weight 99.7 kg (219 lb 12.8 oz) 05/01/2025 8:36 AM EDT Height 170.2 cm (5' 7 ) 01/06/2024 2:20 PM EST Body Mass Index 34.43 01/06/2024 2:20 PM EST Plan of Treatment Upcoming Encounters Date Type Department Care Team (Late st Contact Info) Description 05/30/2025 8:50 AM EDT Routine [facility] OB [address] [facility] [place] [address] Ángel Buckner, DO [address] [place] [address] 09/19/2025 8:30 AM EDT Office Visit [facility] [address] [facility] [place] [phone] Ángel Buckner, DO [address] [place], [place] [phone] Health Maintenance Due Date Last Done Comments Influenza Vaccine (Season Ended) 2025 09/15/20 23 Pap Smear 03/02/2028 03/02/2025, 08/30, 06/19/2020 Cervical Cancer Screening 09/13/2029 HPV/Cotest 09/13/2029 Procedures Procedure Name Priority Date/Time Associated Diagnosis Comments US OB LIMITED 1+ FETUSES Routine 04/18/2025 11:39 AM EDT Encounter for follow-up ultrasound of anatomy ([facility]) GLUCOSE 1 HOUR Routine 04/18/2025 9:24 AM EDT ALL CBC WITH AUTO DIFF Routine 04/18/2025 9:24 AM EDT POCT URINALYSIS DIPSTICK Routine 03/30/2025 10:36 AM EDT Second trimester ([facility]) US OB ANATOMY 03/21/2025 1:16 PM EDT US OB CERVICAL LENGTH 03/21/2025 9:19 AM EDT RECURRENT VAGINITIS (HTRX) Routine 03/02/2025 12:15 PM EDT POCT URINALYSIS DIPSTICK Routine 03/02/2025 10:05 AM EDT 17 weeks gestation of ([facility]) Second trimester ([facility]) IGP,APTIMA HPV,AGE GDLN Routine 03/02/2025 9:50 AM EDT PAP SMEAR Routine 03/02/2025 12:00 AM EDT from Last 3 Months Results * US OB limited 1+ fetuses (04/18/2025 11:39 AM EDT) Anatomical Region Laterality Modality Body Ultrasound 04/21/2025 12:1 7 PM EDT Narrative 04/21/2025 12:17 PM EDT EXAM: US OB LIMITED 1+ FETUSES HISTORY: Follow up anatomy. COMPARISON: Ob ultrasound 03/20/2025. TECHNIQUE: Two-dimensional transabdominal grayscale ultrasound imaging of the pelvis was performed. FINDINGS: Gestation: Single Presentation: Cephalic Cardiac Activity: 136 beats per minute Placental Location: Posterior with no sonographic abnormalities identified. Amniotic Fluid: Appears adequate ANATOMY Four Chamber Heart: Unremarkable LVOT: Unremarkable RVOT: Unremarkable IMPRESSION: 1. Single, live intrauterine gestation 23 weeks, 6 days by LMP. EDIE is 08/09/2025. 2. Unremarkable follow-up anatomy of the heart.. Interpreted by: Electronically signed by EVELYNE RAMSEY II, MD, PHD at 21-Apr-2025 12:15:59 PM [facility] Procedure Note Evelyne Ramsey MD - 04/21/2025 EXAM: US OB LIMITED 1+ FETUSES HISTORY: Follow up anatomy. COMPARISON: Ob ultrasound 03/20/2025. TECHNIQUE: Two-dimensional transabdominal grayscale ultrasound imaging ofthe pelvis was performed. FINDINGS: Gestation: Single Presentation: Cephalic Cardiac Activity: 136 beats per minute Placental Location: Posterior with no sonographic abnormalitiesidentified. Amniotic Fluid: Appears adequate ANATOMY Four Chamber Heart: Unremarkable LVOT: Unremarkable RVOT: Unremarkable IMPRESSION: 1. Single, live intrauterine gestation 23 weeks, 6 days by LMP. EDIE is08/09/2025. 2. Unremarkable follow-up anatomy of the heart.. Interpreted by: Electronically signed by EVELNYE RAMSEY II, MD, PHD [id number] 12:15:59 PM [facility] us Ángel Sita DO IMG OB US PROCEDURES Final Resul t * GLUCOSE 1 HOUR (04/18/2025 9:24 AM EDT) GLUCOSE 1 HOUR 96 <130 mg/dL TBH 04/18/2025 9:24 AM EDT 04/18/2025 9:25 AM EDT Narrative VIRGILIO - 04/18/2025 9:41 AM EDT us Ángel Sita DO LAB BLOOD ORDERABLES Final Resul t [facility] * (ABNORMAL) ALL CBC WITH AUTO DIFF (04/18/2025 9:24 AM EDT) TBH WBC 10.1 4.0 - 11.0 10 3/uL TBH TBH RBC 3.25(L) 4.20 - 5.40 10 6/uL TBH TBH HGB 10.6(L) 12.0 - 16.0 g/dL TBH TBH HCT 31.9(L) 36.0 - 48.0 % TBH TBH MCV 98.2 81.0 - 99.0 fL TBH TBH MCH 32.6 26.7 - 34.0 pg TBH TBH MCHC 33.2 29.9 - 35.2 g/dL TBH TBH RDW 13.2 11.0 - 15.0 % TBH TBH PLT 313 150 - 450 10 3/uL TBH TBH MPV 9.0(L) 9.5 - 13.5 fL TBH NEUTROPHILS PERCENT AUTO 76.4(H) 43.0 - 75.0 % TBH LYMPHOCYTES PERCENT AUTO 15.6(L) 20.5 - 60.0 % TBH MONOCYTES PERCENT AUTO 6.0 1.7 - 12.0 % TBH TBH EO % 1.2 0.9 - 7.0 % TBH BASOPHILS PERCENT AUTO 0.2 0.2 - 2.0 % TBH IMMATURE GRANULOCYTES PCT AUTO 0.6(H) 0.0 - 0.5 % TBH NEUTROPHILS ABSOLUTE AUTO 7.7(H) 1.4 - 6.5 10 3/uL TBH LYMPHOCYTES ABSOLUTE AUTO 1.6 1.2 - 3.8 10 3/uL TBH MONOCYTES ABSOLUTE AUTO 0.6 0.3 - 0.8 10 3/uL TBH TBH EO # 0.1 0.0 - 0.7 10 3/uL TBH BASOPHILS ABSOLUTE AUTO 0.0 0.0 - 0.1 10 3/uL TBH IMMATURE GRANULOCYTES ABS AUTO 0.06(H) 0.00 - 0.03 10 3/uL TBH 04/18/2025 9:24 AM EDT 04/18/2025 9:25 AM EDT Narrative CLINISYNC - 04/18/2025 9:41 AM EDT us Ángel Sita DO CLINISYNC Final Result [facility]IRG[facility]IO [facility] * POCT urinalysis dipstick manually resulted (03/30/2025 10:36 AM EDT) Only the most recent of2 resultswithin the time period is included. Color, UA Yellow Clarity, UA Clear Glucose, UA Negative Negative - 2000(110) ++++ mg/dL Bilirubin, UA Negative Negative - 4(70) +++ mg/dL Ketones, UA Negative Negative - 160(16) ++++ mg/dL Spec Grav, UA 1.020 1 - 1.03 Blood, UA Negative Negative - 50 Ezequiel/mcL pH, UA 7.0 5 - 9 Protein, UA Negative Negative - 2000(20) ++++ mg/dL Urobilinogen, UA 0.2 0.2 - 12 mg/dL Leukocytes, UA Negative Negative - 500+++ Jason/mcL Nitrite, UA Negative Negative - Positive Urine 03/30/2025 10:3 6 AM EDT us Ángel Sita DO POINT OF CARE TEST ENTER/EDIT OR DERABLES Final Result * US OB ANATOMY (03/21/2025 1:16 PM EDT) Anatomical Region Laterality Modality Other 03/21/2025 1:16 PM EDT Narrative 03/21/2025 1:19 PM EDT [address] [address] Ultrasound Report Signed Patient: PHILLIP REYES MR#: [id number] : 1990 Acct:[id number] Age/Sex: 35 / F ADM Date: 03/20/25 Loc: US Attending Dr: Deisy Villar Ordering Physician: Deisy Villar Date of Service: 03/20/25 Procedure(s): US OB anatomy Accession Number(s): [id number] cc: Deisy Villar; Robles Charles D.O. [address] [address] Patient Name: PHILLIP REYES MRN: [id number] date: 1990 Sex: F Assigned Patient Location: US Current Patient Location: Accession/Order Number: [id number] Exam Date: 03/21/2025 13:12 Report Date: 03/21/2025 [...] Aguilar Durand M.D.03/21/2025 1:16 PM Dictation Location: [place] [address] Electronically authenticated by: [id number] Y Date: 03/21/2025 13:16 Dictated By: Aguilar Durand D.O. Signed By: 03/21/25 1319 DD/ 1316 TD/TT: Supervisor Payroll: Procedure Note Radiology, Radiologist, MD - 03/21/2025 [place] [address] Ultrasound Report Signed Patient: PHILLIP REYES R#: [id number] : 1990Acct:[id number] Age/Sex: 35 / FADM Date: 03/20/25 Loc: US Attending Dr: Deisy Villar Ordering Physician: Deisy Villar Date of Service: 03/20/25 Procedure(s): US OB anatomy Accession Number(s): [id number] cc: Deisy Villar; Robles Charles D.O. The [place] [id number] Patient Name: PHILLIP REYES MRN: [facility]:[id number] date: 1990 Sex: F Assigned Patient Location: Current Patient Location: Accession/Order Number: [id number] Exam Date: 03/21/2025 13:12 Report Date: 03/21/2025 13:16 At the request of: DEISY VILLAR Procedure: US OB anatomy Obstetrical Ultrasound for Fetus greater than 14 weeks HISTORY: anatomy assessment heart rate is 144 bpm. The fetus is in breech presentation with longitudinal lie. The placenta is in a posterior position with low-lyingappearance. Amniotic fluid index is subjectively normal. Thecervix has a length of 3.8cm. The estimated weight is 335 g. withpercentile 70.6%. The ovaries are not visualized. No fluid identified in the cul-de-sac. Following anatomy identifiedthe lateral ventricles, cerebellum, posterior fossa, nose and lips, orbits, diaphragm, stomach, kidneys,abdominal cord insertion, bladder, umbilical arteries, three-vessel cord, spine, extremities. Suboptimal assessment of four-chamber heart and the rightand left ventricular outflow tract. The biparietal diameter [...] Aguilar Durand M.D.03/21/2025 1:16 PM Dictation Location: [place] [address] Electronically authenticated by: [id number] Y Date: 3:16 Dictated By: Aguilar Durand D.O. Signed By:03/21/25 1319 DD/ 1316 TD/TT: Supervisor Payroll: us Deisy MUNOZ [facility] IMAGING Final Result * US OB CERVICAL LENGTH (03/21/2025 9:19 AM EDT) Anatomical Region Laterality Modality Other 03/21/2025 9:19 AM EDT Narrative 03/21/2025 9:22 AM EDT [address] [address] Ultrasound Report Signed Patient: PHILLIP REYES MR#: [id number] : 1990 Acct:[id number] Age/Sex: 35 / F ADM Date: 03/20/25 Loc: US Attending Dr: Deisy Villar Ordering Physician: Deisy Villar Date of Service: 03/20/25 Procedure(s): US OB cervical length Accession Number(s): [id number] cc: Deisy Villar; Robles Charles D.O. The [address] [address] Patient Name: PHILLIP REYES MRN: [facility]:[id number] date: 1990 Sex: F Assigned Patient Location: US Current Patient Location: Accession/Order Number: [id number] Exam Date: 03/21/2025 09:18 Report Date: 03/21/2025 09:19 At the request of: DEISY VILLAR Procedure: US OB cervical length Ultrasound assessment of the cervical length The cervical length is 3.8 cm. The cervical os is closed. US/US OB cervical length IMPRESSION: #3.8 cm cervical length. Impression dictated by: Aguilar Durand M.D.03/21/2025 9:19 AM Dictation Location: [place] [address] Electronically authenticated by: [id number] Date: 03/21/2025 09:19 Dictated By: Aguilar Durand D.O. Signed By: 03/21/25921 DD/ 8 TD/TT: Supervisor Payroll: Procedure Note Radiology, Radiologist, MD - 03/21/2025 [place] [address] Ultrasound Report Signed Patient: PHILLIP REYES LMR#: [id number] : 1990Acct:[id number] Age/Sex: 35 / FADM Date: 03/20/25 Loc: US Attending Dr: Deisy Villar Ordering Physician: Deisy Villar Date of Service: 03/20/25 Procedure(s): US OB cervical length Accession Number(s): [id number] cc: Deisy Villar; Robles Charles D.O. The [place] [id number] Patient Name: PHILLIP REYES MRN: [facility]:[id number] date: 1990 Sex: F Assigned Patient Location: US Current Patient Location: Accession/Order Number: [id number] Exam Date: 03/21/2025 09:18 Report Date: 03/21/2025 09:19 At the request of: DEISY VILLAR Procedure: US OB cervical length Ultrasound assessment of the cervical length The cervical length is 3.8 cm. The cervical os is closed. US/US OB cervical length IMPRESSION: #3.8 cm cervical length. Impression dictated by: Aguilar Durand M.D.03/21/2025 9:19 AM Dictation Location: [place] [address] Electronically authenticated by: [id number] Y Date: 9:19 Dictated By: Aguilar Durand D.O. Signed By:03/21/25921 DD/ 8 TD/TT: Supervisor Payroll: Deisy MUNOZ [facility] IMAG[facility] Final Result * RECURRENT VAGINITIS (HTRX) (03/02/2025 12:15 PM EDT) [facility] ATOPOBIUM VAGINAE 0.000 19.961 - 24.689 ppm 03/03/2025 10:29 AM EDT [facility] ATOPOBIUM VAGINAE Not Detected 19.961 - 24.689 ppm 03/03/2025 10:29 AM EDT [facility] BVAB 2,3 (BACTERIAL VAGINOSIS ASSOCIATED BACTERIA 2, 3); MOBILUNCUS SPP 0.000 19.961 - 24.689 ppm 03/03/2025 10:29 AM EDT [facility] BVAB 2,3 (BACTERIAL VAGINOSIS ASSOCIATED BACTERIA 2, 3); MOBILUNCUS SPP Not Detected 19.961 - 24.689 ppm 03/03/2025 10:29 AM EDT [facility] ANEUDY ALBICANS, PARAPSILOSIS, TROPICALIS 0.000 19.961 - 30.770 ppm 03/03/2025 10:29 AM EDT [facility] ANEUDY ALBICANS, PARAPSILOSIS, TROPICALIS Not Detected 19.961 - 30.770 ppm 03/03/2025 10:29 AM EDT [facility] ANEUDY GLABRATA 0.000 23.000 - 32.138 ppm 03/03/2025 10:29 AM EDT [facility] ANEUDY GLABRATA Not Detected 23.000 - 32.138 ppm 03/03/2025 10:29 AM EDT [facility] ANEUDY KRUSEI 0.000 23.000 - 32.271 ppm 03/03/2025 10:29 AM EDT [facility] ANEUDY KRUSEI Not Detected 23.000 - 32.271 ppm 03/03/2025 10:29 AM EDT [facility] CHLAMYDIA TRACHOMATIS 0.000 23.000 - 31.467 ppm 03/03/2025 10:29 AM EDT [facility] CHLAMYDIA TRACHOMATIS Not Detected 23.000 - 31.467 ppm 03/03/2025 10:29 AM EDT [facility] GARDNERELLA VAGINALIS 0.000 19.961 - 24.689 ppm 03/03/2025 10:29 AM EDT [facility] GARDNERELLA VAGINALIS Not Detected 19.961 - 24.689 ppm 03/03/2025 10:29 AM EDT [facility] MEGASPHAERA (TYPES 1, 2) 0.000 19.961 - 24.689 ppm 03/03/2025 10:29 AM EDT [facility] MEGASPHAERA (TYPES 1, 2) Not Detected 19.961 - 24.689 ppm 03/03/2025 10:29 AM EDT [facility] NEISSERIA GONORRHOEAE 0.000 23.000 - 32.117 ppm 03/03/2025 10:29 AM EDT [facility] NEISSERIA GONORRHOEAE Not Detected 23.000 - 32.117 ppm 03/03/2025 10:29 AM EDT [facility] TRICHOMONAS VAGINALIS 0.000 23.000 - 32.119 ppm 03/03/2025 10:29 AM EDT [facility] TRICHOMONAS VAGINALIS Not Detected 23.000 - 32.119 ppm 03/03/2025 10:29 AM EDT [facility] MYCOPLASMA GENITALIUM 0.000 19.961 - 24.689 ppm 03/03/2025 10:29 AM EDT [facility] MYCOPLASMA GENITALIUM Not Detected 19.961 - 24.689 ppm 03/03/2025 10:29 AM EDT [facility] Tissue 03/02/2025 12:1 5 PM EDT 03/03/2025 4:51 AM EDT us Deisy MUNOZ LAB BLOOD ORDERABLES Final Resul t [facility] [place] [place] [address] * IGP,APTIMA HPV,AGE GDLN (03/02/2025 9:50 AM EDT) AGE GDLN ACOG TESTING Note . [facility] Comment: TESTS RESULT FLAG UNITS REF RANGE LAB Clinician Provided Cytology Information Source.............Cervix Other.............. No. of containers..01 ThinPrep Vial Age Algo ACOG Lara... 30-65 01 FLAG LEGEND: L-Low Normal,H-High Normal,LL-Alert Low,HH-Alert High <-Panic Low,>-Panic High,A-Abnormal,AA-Critical Abnormal Performed at: 01 =G [facility] [address] [place] [address] Ilana Heath MD, IGP, APTIMA HPV, RFX 16/18,45 Note . [facility] Comment: TESTS RESULT FLAG UNITS REF RANGE LAB DIAGNOSIS: 02 NEGATIVE FOR INTRAEPITHELIAL LESION OR MALIGNANCY. THIS SPECIMEN WAS RESCREENED PART OF OUR CERTIFIED ATHLETIC TRAINER PROGRAM. Specimen adequacy: 02 Satisfactory for evaluation. No endocervical component is identified. Performed by: 03 Eugenia Kennedy, Black Powder Glazing Operator ([facility]) QC reviewed by: 02 Meredith Chávez, Comb Setter . 02 Note: Note 02 The Pap [...] High,A-Abnormal,AA-Critical Abnormal Performed at: 02 [address] [facility] [address] [address] Ilana Heath MD, 03 KWCYT [facility] [place] [address] [address] [place] [address] Lloyd Kim MD, HPV APTIMA Negative Negative [facility] Comment: This nucleic acid amplification test detects fourteen high- risk HPV types (16,18,31,33,35,39,45,51,52,56,58,59,66,68) without differentiation. Performed at: =[address] [id number] Branch Maker: Ilana Heath MD, Phone: [phone] Performed at: [address] [id number] Branch Maker: Ilana Heath MD, Phone: [phone] 03/02/2025 9:50 AM EDT 03/02/2025 12:16 PM EDT Narrative CLINISYNC - 03/09/2025 4:08 PM EDT SPATULA-ALONE CERVIX us Deisy MUNOZ LAB BLOOD ORDERABLES Final Resul t Performing Organization Address City/[facility]/ZIP Co de Phone Number [facility] * Pap Smear (03/02/2025 12:00 AM EDT) Swab Cervical swab / Unknown us [facility] Ob Sita Nurse LAB CYTOLOGY ORDERABLES Final Result EXTERNAL LAB from Last 3 Months Insurance [employer] Care Teams Clay Artist Relationship Specialty Start Date End Date Robles Charles DO [address] [place] [address] PCP - General Internal Medicine 07/30/23 Deisy Villar PA [address] [place] [address] [place] [address] PCP - Medical [employer] 11/30/23 11/29/99
--- OUTSIDE RECORDS SUMMARY | 2025-05-11 13:50 | XMS_ITS | Encounter Summary ---
Author Organization [facility] Address [address] [place] [address] Care Team Providers Care Rolling Machine Tender Name Role Phone MelvinRobles Primary Care Provider [phone] Deisy Haji Unavailable Encounter Details Date Type Department Care Team (Late Contact Info) Description 05/01/2025 Bamboo flowsheet [facility] [address] [facility] [address] Deisy Haji PA [address] [facility] [address] [place], [facility] Social History Tobacco Use Types Packs/Day Years [...] on file documented as of this encounter Plan of Treatment Upcoming Encounters Date Type Department Care Team (Late Contact Info) Description 05/30/2025 8:50 AM EDT Routine [facility] B[facility] OB [address] [place] [phone] Ángel Buckner, DO [address] [place] [address] 09/19/2025 8:30 AM EDT Office Visit [facility] OB [address] [place] [phone] Ángel Buckner, DO [address] [place] [address] documented as of this encounter Visit Diagnoses Not on filedocumented in this encounter Care Teams Rolling Machine Tender Relationship Specialty Start Date End Date Robles Charles DO [address] [facility] [place] [address] PCP - General Internal Medicine 07/30/23 Deisy Haji PA [address] [place], [place] [address] [place], [place] [phone] PCP - Medical [place] [employer] 11/30/23 11/29/99 documented as of this encounter
--- OUTSIDE RECORDS SUMMARY | 2025-05-11 13:50 | XMS_ITS | Encounter Summary ---
Author Organization [facility] Address [address] [place] [address] Care Team Providers Care Solution Professional Name Role Phone MelvinRobles Primary Care Provider [phone] Deisy Haji Unavailable Encounter Details Date Type Department Care Team (Late Contact Info) Description 08/06/2023 Clinisync Result Encounter [facility] External Department Unsolicited Le Buckner DO [facility] [place], [place] [id number] Social History Tobacco Use Types Packs/Day Years Used Date Smoking Tobacco: Never Assessed Comments Unknown Sex and Gender Information Value Date Recorded Sex Assigned at Female 06/25/2023 5:45 PM EDT Legal Sex Female 11:47 PM EDT Gender Identity Female 06/25/2023 5:45 PM EDT Sexual Orientation Not on file COVID-19 Exposure Response Date Recorded In the last 10 days, have yo u been in contact with someone who was confirmed or suspected to have Coronavirus/COVID-19? No / Unsure 07/29/2023 4:54 PM EDT documented as of this encounter Plan of Treatment Upcoming Encounters Date Type Department Care Team (Late st Contact Info) Description 05/30/2025 8:50 AM EDT Routine [facility] OB [address] [place] [address] eL Buckner DO [address] [place], [place] [phone] 09/19/2025 8:30 AM EDT Office Visit [facility] OB [address] [facility] [place] [phone] Le Buckner DO [address] [place], [place] [address]Megan [place]aur, [facility]11 documented as of this encounter Procedures Procedure Name Priority Date/Time Associated Diagnosis Comments US OB TRANSVAGINAL 08/06/2023 4: 44 PM EDT documented in this encounter Results * US OB TRANSVAGINAL (08/06/2023 4:44 PM EDT) Anatomical Region Laterality Modality Other 08/06/2023 4:44 PM EDT Narrative 08/06/2023 4:44 PM EDT [address] [address] Ultrasound Report Signed Patient: Phillip Hernandez MR#: [id number] : 1990 Acct:[id number] Age/Sex: 33 / F ADM Date: 08/06/23 Loc: US Attending Dr: Le Buckner D.O. Ordering Physician: Le Buckner D.O. Date of Service: 08/06/23 Procedure(s): US OB transvaginal Accession Number(s): [id number] cc: Le Buckner D.O.; Physician,Non-Staff M.DCuauhtemoc The [address] [address] Patient Name: PHILLIP HERNANDEZ MRN: [id number] date: 1990 Sex: F Assigned Patient Location: US Current Patient Location: US Accession/Order Number: [id number] Exam Date: 08/06/2023 09:32 Report Date: 08/06/2023 16:44 At the request of: LE BUCKNER Procedure: US OB transvaginal EXAMINATION: US OB transvaginal HISTORY: VIABILITY COMPARISON: 07/30/2023 FINDINGS: No intrauterine or ectopic observed is observed The uterus is normal, anteverted, anteflexed. The endometrium measures 1.3 cm, mildly heterogeneous. No significant vascularity to suggest retained products of conception The right ovary is normal measuring 3.5 x 1.9 x 1.8 cm The left ovary is not visualized Cervix: Closed, 3.4 cm US/US OB transvaginal IMPRESSION: No intrauterine or ectopic observed Electronically authenticated by: NAVA YEUNG Date: 08/06/2023 16:44 Dictated By: Nava Yeung M.D. Signed By: 08/06/231646 DD/ 43 TD/TT: Litigation Examiner: Procedure Note Radiology, Radiologist, MD - 08/21/2023 [place] [address] Ultrasound Report Signed Patient: Phillip Hernandez R#: [id number] : 1990Acct:[id number] Age/Sex: 33 / FADM Date: 08/06/23 Loc: US Attending Dr: Le Buckner D.O. Ordering Physician: Le Buckner D.O. Date of Service: 08/06/23 Procedure(s): US OB transvaginal Accession Number(s): [id number] cc: Le Buckner D.O.; Physician,Non-Staff Lauri The [place] [id number] Patient Name: PHILLIP HERNANDEZ MRN: [facility]:[id number] date: 1990 Sex: F Assigned Patient Location: US Current Patient Location: US Accession/Order Number: [id number] Exam Date: 08/06/2023 09:32 Report Date: 08/06/2023 16:44 At the request of: EL BUCKNER Procedure: US OB transvaginal EXAMINATION: US OB transvaginal HISTORY: VIABILITY COMPARISON: 07/30/2023 FINDINGS: No intrauterine or ectopic observed is observed The uterus is normal, anteverted, anteflexed. The endometrium measures 1.3cm, mildly heterogeneous. No significant vascularity to suggest retainedproducts of conception The right ovary is normal measuring 3.5 x 1.9 x 1.8 cm The left ovary is not visualized Cervix: Closed, 3.4 cm US/US OB transvaginal IMPRESSION: No intrauterine or ectopic observed Electronically authenticated by: NAVA YEUNG Date: 08/06/2023 16:44 Dictated By: Nava Yeung M.D. Signed By:08/06/231646 DD/ 43 TD/TT: Litigation Examiner: us Le Buckner DO [facility] Final Result documented in this encounter Visit Diagnoses Not on filedocumented in this encounter Care Teams Solution Professional Relationship Specialty Start Date End Date Robles Charles DO [address] [facility] [place] [address] PCP - General Internal Medicine 07/30/23 Deisy Haji PA [address] [place] [address] [place] [address] PCP - Medical [place] [employer] 11/30/23 11/29/99 documented as of this encounter
--- OUTSIDE RECORDS SUMMARY | 2025-05-11 13:50 | XMS_ITS | Encounter Summary ---
Author Organization [facility] Address [address] [place] [address] Care Team Providers Care White Shoe Examiner Name Role Phone MelvinRobles Justus CRESPO Primary Care Provider [phone] Deisy Haji Unavailable Encounter Details Date Type Department Care Team (Late Contact Info) Description 02/02/2025 Abstract [facility] OB [address] [place] [address] Ángel Buckner DO [address] [facility] [address] [place], [place] [phone] Social History Tobacco Use Types Packs/Day Years [...] AM EDT Routine [facility] OB [address] [facility] [place] [phone] Ángel Buckner, DO [address] [place] [address] 09/19/2025 8:30 AM EDT Office Visit [facility] [address] [facility] [place] [phone] Ángel Buckner, DO [address] [place], [place] [phone] documented as of this encounter Visit Diagnoses Not on filedocumented in this encounter Care Teams White Shoe Examiner Relationship Specialty Start Date End Date Robles Charles DO [address] [facility] [place] [address] PCP - General Internal Medicine 07/30/23 Deisy Haji PA [address] [place] [address] Tosin [place], [place] [id number] PCP - Medical [place] [employer] 11/30/23 11/29/99 documented as of this encounter
--- OUTSIDE RECORDS SUMMARY | 2025-05-11 13:50 | XMS_ITS | Encounter Summary ---
Author Organization [facility] Address [address] [place] [address] Care Team Providers Care Fast Food Worker Name Role Phone Robles Charles Primary Care Provider [phone] Deisy Haji Unavailable Encounter Details Date Type Department Care Team (Late Contact Info) Description 03/09/2025 Orders Only [facility] OB [address] [place] [address] Camille Lawrence LPN [address] [place] [address] Social History Tobacco Use Types Packs/Day Years [...] AM EDT Routine [facility] OB [address] [place] [phone] Ángel Buckner, DO [address] [place], [place] [address] 09/19/2025 8:30 AM EDT Office Visit [facility] OB [address] [facility] [place] [address] Ángel Buckner, DO [address] [facility] [address] [place], [place] [address] documented as of this encounter Procedures Procedure Name Priority Date/Time Associated Diagnosis Comments PAP SMEAR Routine 03/02/2025 12:00 AM EDT documented in this encounter Results * Pap Smear (03/02/2025 12:00 AM EDT) Swab Cervical swab / Unknown us [facility] Bcp Ob Sita Nurse LAB CYTOLOGY ORDERABLES Final Result EXTERNAL LAB documented in this encounter Visit Diagnoses Not on filedocumented in this encounter Care Teams Fast Food Worker Relationship Specialty Start Date End Date Robles Charles DO [address] [facility] [place] [address] PCP - General Internal Medicine 07/30/23 Deisy Haji PA [address] [place] [address] [place] [address] PCP - Medical [place] [employer] 11/30/23 11/29/99 documented as of this encounter
--- NOTE | 2025-05-11 13:55 | US_ITS ---
[address] [address] Patient Name: PHILLIP HERNANDEZ MRN: [id number] date: 1990 Sex: F Assigned Patient Location: Current Patient Location: Accession/Order Number: [id number] Exam Date: 05/11/2025 14:38 Report Date: 05/11/2025 14:40 At the request of: EDSON LYNN Procedure: US OB growth Growth ultrasound. Reason for exam: size. COMPARISON: Ultrasound 03/20/2025. TECHNIQUE: Transabdominal imaging of the gravid uterus was obtained. FINDINGS: Single live intrauterine 28 weeks 1 day by anatomic measurements. Appropriate growth by dating. Estimated weight is 1190 g which is the 80th percentile. heart rate 1 54 bpm. position is cephalic at time of scanning. MARTY is normal at 13.5 cm. US/US OB growth IMPRESSION: Single live intrauterine 28 weeks 1 day by anatomic measurements. Appropriate growth. Impression dictated by: Justin Mack Jr., D.O. 05/11/2025 2:40 PM Dictation Location: [place] [address] Electronically authenticated by: [id number] Y Date: 05/11/2025 14:40
== END 2025-05-11 13:49 | disposition home or self-care (01) ==
LOC: US 13:48
PROVIDERS: PCP Internal Medicine; Visit Provider Nurse Practitioner Family
DX: O26.843 Uterine size-date discrepancy, third trimester (principal); Z3A.28 28 weeks gestation of pregnancy
CPT/HCPCS: 76816

== ENCOUNTER 2025-05-26 06:34 | Outpatient (OUT) | payer OTHER, SELFPAY ==
--- OUTSIDE RECORDS SUMMARY | 2025-05-26 06:37 | XMS_ITS | Encounter Summary ---
Author Organization [facility] Address [address] [place] [address] Care Team Providers Care Training Systems Officer Name Role Phone MelvinRobles Primary Care Provider [phone] Deisy Haji Unavailable Encounter Details Date Type Department Care Team (Late Contact Info) Description 08/06/2023 Clinisync Result Encounter [facility] External Department Unsolicited Le Buckner DO [facility] [place], [place] [phone] Social History Tobacco Use Types Packs/Day Years [...] BCP OB [address] [place] [address] Le Buckner DO [address] [place], [place] [phone] 09/19/2025 8:30 AM EDT Office Visit [facility] OB [address] [facility] [place] [phone] Le Buckner DO [address] [place], [place] [address]Megan [place]aur, [facility]11 documented as of this encounter Procedures Procedure Name Priority Date/Time Associated Diagnosis Comments US OB TRANSVAGINAL 08/06/2023 4: 44 PM EDT documented in this encounter Results * US OB TRANSVAGINAL (08/06/2023 4:44 PM EDT) Anatomical Region Laterality Modality Other 08/06/2023 4:44 PM EDT Narrative 08/06/2023 4:44 PM EDT [address] [address] Ultrasound Report Signed Patient: Phillip Hernandez MR#: [id number] : 1990 Acct:[id number] Age/Sex: 33 / F ADM Date: 08/06/23 Loc: US Attending Dr: Le Buckner D.O. Ordering Physician: Le Buckner D.O. Date of Service: 08/06/23 Procedure(s): US OB transvaginal Accession Number(s): [id number] cc: Le Buckner D.O.; Physician,Non-Staff M.DCuauhtemoc The [address] [address] Patient Name: PHILLIP HERNANDEZ MRN: [id number] date: 1990 Sex: F Assigned Patient Location: US Current Patient Location: US Accession/Order Number: [id number] Exam Date: 08/06/2023 09:32 Report Date: 08/06/2023 [...] M.D. Signed By: 08/06/231646 DD/ 43 TD/TT: Senior Accounting Analyst: Procedure Note Radiology, Radiologist, MD - 08/21/2023 [place] [address] Ultrasound Report Signed Patient: Phillip Hernandez R#: [id number] : 1990Acct:[id number] Age/Sex: 33 / FADM Date: 08/06/23 Loc: US Attending Dr: Le Buckner D.O. Ordering Physician: Le Buckner D.O. Date of Service: 08/06/23 Procedure(s): US OB transvaginal Accession Number(s): [id number] cc: Le Buckner D.O.; Physician,Non-Staff Lauri The [place] [id number] Patient Name: PHILLIP HERNANDEZ MRN: [facility]:[id number] date: 1990 Sex: F Assigned Patient Location: US Current Patient Location: US Accession/Order Number: [id number] Exam Date: 08/06/2023 09:32 Report Date: 08/06/2023 [...] Yeung M.D. Signed By:08/06/231646 DD/ 43 TD/TT: Senior Accounting Analyst: us Le Buckner DO [facility] Final Result documented in this encounter Visit Diagnoses Not on filedocumented in this encounter Care Teams Training Systems Officer Relationship Specialty Start Date End Date Robles Charles DO [address] [facility] [place] [address] PCP - General Internal Medicine 07/30/23 Deisy Haji PA [address] [place] [address] [place] [address] PCP - Medical [place] [employer] 11/30/23 11/29/99 documented as of this encounter
--- OUTSIDE RECORDS SUMMARY | 2025-05-26 06:37 | XMS_ITS | Encounter Summary ---
Author Organization [facility] Address [address] [place] [address] Care Team Providers Care Supervisor Forming Department Name Role Phone MelvinRobles Justus CRESPO Primary Care Provider [phone] Deisy Haji Unavailable Encounter Details Date Type Department Care Team (Late Contact Info) Description 02/02/2025 Abstract [facility] OB [address] [place] [address] Ángel Buckner DO [address] [facility] [address] [place], [place] [phone] Social History Tobacco Use Types Packs/Day Years [...] AM EDT Routine [facility] BCP OB [address] [facility] [place] [address] Ángel Buckner, DO [address] [place] [address] 09/19/2025 8:30 AM EDT Office Visit [facility] OB [address] [facility] [place] [address] Ángel Buckner, DO [address] [place], [place] [phone] documented as of this encounter Visit Diagnoses Not on filedocumented in this encounter Care Teams Supervisor Forming Department Relationship Specialty Start Date End Date Robles Charles DO [address] [facility] [place] [address] PCP - General Internal Medicine 07/30/23 Deisy Haji PA [address] [place] [address] Tosin [place], [place] [phone] PCP - Medical [place] [employer] 11/30/23 11/29/99 documented as of this encounter
--- OUTSIDE RECORDS SUMMARY | 2025-05-26 06:37 | XMS_ITS | CCD ---
Author Organization [facility] [employer] Care Team Providers Care Cane Stripper Name Role Phone Subha Dillon Unavailable Elis Mayer Unavailable MD Liz Conteh Primary Care Provider DO Delano Francis Attending Provider [phone] SITA, DR LUJAN Consulting Unavailable SITA, DR LUJAN Admitting Unavailable REQUEST, DR RAIN LISTED Primary Care Unavaila jt BUCKNER, DR LUJAN Attending Unavailable NELA, DR SEARS Attending Unavailable NELA, DR SEARS Consulting Unavailable NELA, DR SEARS Admitting Unavailable REQUEST, DR RAIN LISTED Primary Care Unavaila Kiya Gonsalves Unavailable MD Derick Timmons Attending Provider [phone] SHANNON Schaffer Attending Provider Robles Charles Unavailable MD Liz Conteh Primary Care Provider DO Delano Francis Attending Provider [phone] QUANG Villar Attending Provider DO Robles Charles [...] Unavailable Robles Charles DO Primary Care Provider Formerly [facility] Delano CRESPO Attending Provider Robles Charles MD Primary Care Provider Robles Charles DO Primary Care Provider Robles Charles DO Primary Care Provider ÁNGEL BUCKNER Attending Unavailable DEISY VILLAR Attending Unavailable ÁNGEL BUCKNER Attending Unavailable ÁNGEL BUCKNER Referring Unavailable ÁNGEL BUCKNER Attending Unavailable DEISY VILLAR Attending Unavailable Allergies Allergy Classification Reported Allergen(s) Allergy Type Date of Onset Reaction(s) Facility (5 sources) Penicillin V Drug Allergy rash [facility] [employer] Other (1 source) Amoxicillin Drug Allergy 0 [facility] Repository (1 source) Penicillins Drug allergy (disorder) [facility] Repository (5 sources) Penicillin Drug Allergy rash [employer] Other (1 source) Substance with penicillin structure and antibacterial mechanism of action (substance) Drug allergy 3 PENICILLINS [facility] [employer] Other (20 sources) Amoxicillin Drug Allergy [facility] Healthcare (20 sources) Penicillin G Drug Allergy 3 Unknown [facility] Healthcare (1 source) Penicillins Drug allergy (disorder) 4 [facility] Repository Medications Current Medications Medication Drug Class(es) Dates Sig (Normalized) Sig (Original) aspirin 81 mg delayed release oral tablet (14 sources) Platelet Aggregation Inhibitor, Nonsteroidal Anti-inflammatory Drug [...] vomiting 30 tablet 2 12/22/2024 02/02/2025 Active Pre-Mack (10 sources) Pre-Mack Not-Ta flakita Pre-Mack Active MV-Min-Fe Fum-FA-DH A ( 1 PO) (20 sources) MV-Min- Fe Fum-FA-DHA ( 1 PO) [...] fatigue; Translations: [Fatigue] Onset: 2 Episodic Other complications of (2 sources) size does not accord with dates; Translations: [Uterine size-date discrepancy, unspecified trimester] 05-01-2025 Episodic Other endocrine disorders (1 source) Disorder [...] Overweight Episodic Other and delivery including normal (8 sources) Second trimester ; Translations: [Encounter for [...] [21 weeks gestation of ] 03-30-2025 Episodic Residual codes; unclassified (2 sources) Gestation period, 25 weeks; Translations: [25 weeks gestation of ] 05-01-2025 Episodic Unclassified (1 source) Endocrine disorder, unspecified; Translations: [Endocrine disorder, unspecified] Onset: 4 Past or Other Problems Problem Classification Problem Date Documented Da te Episodic/Chronic Unclassified (1 source) Contact with and (suspected) exposure to covid-19 Z20.822 Viral infection (1 source) COVID-19 Onset: 12-27-2021 Resolved: 12-27-2021 Results Test Name Value Interpretation Reference Range Facility OB GROWTHon 05-11-2025 [place] [id number] Ultrasound Report Signed Patient: ANGELA REYES MR#: [id number] : 1990 Acct:[id number] Age/Sex: 35 / F ADM Date: 05/11/25 Loc: US Attending Dr: Edson Dewitt Ordering Physician: Edson Dewitt Date of Service: 05/11/25 Procedure(s): US OB growth Accession Number(s): [id number] cc: Robles Charles D.O.; Edson Dewitt The [address] [address] Patient Name: ANGELA REYES MRN: [facility]:[id number] date: 1990 Sex: F Assigned Patient Location: US Current Patient Location: US Accession/Order Number: [id number] Exam Date: 05/11/2025 14:38 Report Date: 05/11/2025 14:40 At the request of: EDSON DEWITT Procedure: US OB growth Growth ultrasound. Reason for exam: size. COMPARISON: Ultrasound 03/20/2025. TECHNIQUE: Transabdominal imaging of the gravid uterus was obtained. FINDINGS: Single live intrauterine 28 weeks 1 day by anatomic measurements. Appropriate growth by dating. Estimated weight is 1190 g which is the 80th percentile. heart rate 1 54 bpm. position is cephalic at time of scanning. MARTY is normal at 13.5 cm. US/US OB growth IMPRESSION: Single live intrauterine 28 weeks 1 day by anatomic measurements. Appropriate growth. Impression dictated by: Justin Mack Jr., D.O. 05/11/2025 2:40 PM Dictation Location: [place] [address] Electronically authenticated by: [id number] Y Date: 05/11/2025 14:40 Dictated By: Justin Mack M.D. Signed By: 05/11/25 1442 DD/ 1440 TD/TT: Salon Receptionist: [facility] Radiology, Radiologbrittanie pa MD - 05/11/2025 [place] [address] Ultrasound Report Signed Patient: ANGELA REYES MR#: [id number] : 1990 Acct:[id number] Age/Sex: 35 / F ADM Date: 05/11/25 Loc: US Attending Dr: Edson Dewitt Ordering Physician: Edson Dewitt Date of Service: 05/11/25 Procedure(s): US OB growth Accession Number(s): [id number] cc: Robles Charles D.O.; Edson Dewitt [place] [address] Patient Name: ANGELA REYES MRN: [facility]:[id number] date: 1990 Sex: F Assigned Patient Location: US Current Patient Location: US Accession/Order Number: [id number] Exam Date: 05/11/2025 14:38 Report Date: 05/11/2025 14:40 At the request of: EDSON DEWITT Procedure: US OB growth Growth ultrasound. Reason for exam: size. COMPARISON: Ultrasound 03/20/2025. TECHNIQUE: Transabdominal imaging of the gravid uterus was obtained. FINDINGS: Single live intrauterine 28 weeks 1 day by anatomic measurements. Appropriate growth by dating. Estimated weight is 1190 g which is the 80th percentile. heart rate 1 54 bpm. position is cephalic at time of scanning. MARTY is normal at 13.5 cm. US/US OB growth IMPRESSION: Single live intrauterine 28 weeks 1 day by anatomic measurements. Appropriate growth. Impression dictated by: Justin Mack Jr., D.O. 05/11/2025 2:40 PM Dictation Location: [place] [address] Electronically authenticated by: [id number] Y Date: 05/11/2025 14:40 Dictated By: Justin Mack M.D. Signed By: 05/11/25 144 DD/ TD/TT: Salon Receptionist: [facility] Radiology Study observation (narrative) [facility] US OB GROWTHOrdered By: Reg ologist Radiology on 05-11-2025 [facility] Work Phone: ALL CBC WITH AUTO DIFFon BASOPHILS ABSOLUTE AUTO 0 N [facility] Basophils/100 WBC (Bld) 0.2 % 0.2 - 2.0 % [facility] Eosinophils/100 WBC (Bld) 1.2 % 0.9 - 7.0 % [facility] Erythrocyte distribution width (RBC) [Ratio] 13.2 % 11.0 - 15.0 % [facility] Hematocrit (Bld) [Volume fraction] 31.9 % Low 36.0 - 48.0 % [facility] Hemoglobin (Bld) [Mass/Vol] 10.6 g/dL Low 12.0 - 16.0 g/dL [facility] IMMATURE GRANULOCYTES ABS AUTO 0.06 High [facility] Immature granulocytes/100 WBC (Bld) 0.6 % High 0.0 - 0.5 % [facility] Interpretation and review of laboratory results Abnormal [facility] LYMPHOCYTES ABSOLUTE AUTO 1.6 [facility] Lymphocytes/100 WBC (Bld) 15.6 % Low 20.5 - 60.0 % [facility] MCH (RBC) [Entitic mass] 32.6 pg 26.7 - 34.0 pg [facility] MCHC (RBC) [Mass/Vol] 33.2 g/dL 29.9 - 35.2 g/dL [facility] MCV (RBC) [Entitic vol] 98.2 fL 81.0 - 99.0 fL [facility] MONOCYTES ABSOLUTE AUTO 0.6 N [facility] Monocytes/100 WBC (Bld) 6 % 1.7 - 12.0 % [facility] NEUTROPHILS ABSOLUTE AUTO 7.7 High [facility] Neutrophils/100 WBC (Bld) 76.4 % High 43.0 - 75.0 % [facility] Platelet mean volume (Bld) [Entitic vol] 9 fL Low 9.5 - 13.5 fL [facility] TBH EO # 0.1 [facility]H PLT 313 [facility] TB RBC 3.25 Low [facility] TB WBC 10.1 [facility] GLUCOSE 1 HOURon 04-18-2025 Glucose [Mass/Vol] 96 mg/dL NINF - 13 0 mg/dL [facility] No Panel Informationon 04-18 [facility] US OB LIMITED 1+ FETUSESon 0 04-18-2025 US OB LIMITED 1+ FETUSES EXAM: US OB LIMITED 1+ FETUSES HISTORY: [...] heart.. Interpreted by: Electronically signed by EVELYNE SAMUEL II, MD, PHD at 21-Apr-2025 12:15:59 PM [facility] Normal Not Available Comment on above: Order Comment: US OB INCOMPLETE ANATOMY W US OB TRANSVAGINAL Estimated Date of Delivery: 08/09/25 Gestational Age as of 03/30/2025: 21w1d Urinalysis macro (dipstick) panel (U)on 03-30-2025 Bilirubin, UA Negative Negative - 4(70) +++ mg/dL [facility] Blood, UA Negative Negative - 50 Ezequiel/mcL [facility] Clarity, UA Clear [facility] Color, UA Yellow [facility] Glucose, UA Negative Negative - 2000(110) ++++ mg/dL [facility] Interpretation and review of laboratory results Normal [facility] Ketones, UA Negative Negative - 160(16) ++++ mg/dL [facility] Leukocytes, UA Negative Negative - 500+++ Jason/mcL [facility] Nitrite, UA Negative Negative - Positive [facility] pH, UA 7 5 - 9 [facility] Protein, UA Negative Negative - 2000(20) ++++ mg/dL [facility] Spec Grav, UA 1.02 1 - 1.03 [facility] Urobilinogen, UA 0.2 0.2 - 12 mg/dL [facility] US OB ANATOMYon 03-21-2025 [facility] [address] [place] [address] Ultrasound Report Signed Patient: ANGELA REYES MR#: [id number] : 1990 Acct:[id number] Age/Sex: 35 / F ADM Date: 03/20/25 Loc: US Attending Dr: Deisy Villar Ordering Physician: Deisy Villar Date of Service: 03/20/25 Procedure(s): US OB anatomy Accession Number(s): [id number] cc: Deisy Villar; Robles Charles D.O. [place] [address] Patient Name: ANGELA REYES MRN: [facility]:[id number] date: 1990 Sex: F Assigned Patient Location: US Current Patient Location: Accession/Order Number: [id number] Exam Date: 03/21/2025 13:12 Report Date: 03/21/2025 [...] due date is 08/06/2025. somatic motion identified. US/ OB anatomy IMPRESSION: Single live intrauterine gestation 20 weeks 1 day. The anatomy as above. Suboptimal visualization of four-chamber heart and the right and left ventricular outflow tract. Impression dictated by: Aguilar Durand M.D.03/21/2025 1:16 PM Dictation Location: [place] Electronically authenticated by: [id number] Y Date: 03/21/2025 13:16 Dictated By: Aguilar Durand D.O. Signed By: 03/21/25 1319 DD/ 15 TD/TT: Salon Receptionist: [facility] RadiologyNeelimaogbrittanie pa MD - 03/21/2025 [place] [address] Ultrasound Report Signed Patient: ANGELA REYES MR#: [id number] : 1990 Acct:[id number] Age/Sex: 35 / F ADM Date: 03/20/25 Loc: US Attending Dr: Deisy Villar Ordering Physician: Deisy Villar Date of Service: 03/20/25 Procedure(s): US OB anatomy Accession Number(s): [id number] cc: Deisy Villar; Robles Charles D.O. The [place] [id number] Patient Name: ANGELA REYES MRN: [facility]:[id number] date: 1990 Sex: F Assigned Patient Location: US Current Patient Location: Accession/Order Number: [id number] Exam Date: 03/21/2025 13:12 Report Date: 03/21/2025 [...] Aguilar Durand M.D.03/21/2025 1:16 PM Dictation Location: [place] [address] Electronically authenticated by: [id number] Y Date: 03/21/2025 13:16 Dictated By: Aguilar Durand D.O. Signed By: 03/21/25 1319 DD/ 15 TD/TT: Salon Receptionist: [facility] Radiology Study observation (narrative) [facility] US OB ANATOMYOrdered By: Chepe jay Radiology on 03-21-2025 [facility] Work Phone: US OB CERVICAL LENGTHon 03-01 [place] [address] Ultrasound Report Signed Patient: ANGELA REYES MR#: [id number] : 1990 Acct:[id number] Age/Sex: 35 / F ADM Date: 03/20/25 Loc: US Attending Dr: Deisy Villar Ordering Physician: Deisy Villar Date of Service: 03/20/25 Procedure(s): US OB cervical length Accession Number(s): [id number] cc: Deisy Villar; Robles Charles D.O. The [address] [address] Patient Name: ANGELA REYES MRN: [id number] date: 1990 Sex: F Assigned Patient Location: US Current Patient Location: Accession/Order Number: [id number] Exam Date: 03/21/2025 09:18 Report Date: 03/21/2025 09:19 At the request of: DEISY VILLAR Procedure: US OB cervical length Ultrasound assessment of the cervical length The cervical length is 3.8 cm. The cervical os is closed. US/US OB cervical length IMPRESSION: #3.8 cm cervical length. Impression dictated by: Aguilar Durand M.D.03/21/2025 9:19 AM Dictation Location: [place] Electronically authenticated by: [id number] Y Date: 03/21/2025 09:19 Dictated By: Aguilar Durand D.O. Signed By: 03/21/25921 DD/ 8 TD/TT: Salon Receptionist: [facility] Radiology Radiologbrittanie pa MD - 03/21/2025 [place] [address] Ultrasound Report Signed Patient: ANGELA REYES MR#: [id number] : 1990 Acct:[id number] Age/Sex: 35 / F ADM Date: 03/20/25 Loc: US Attending Dr: Deisy Villar Ordering Physician: Deisy Villar Date of Service: 03/20/25 Procedure(s): US OB cervical length Accession Number(s): [id number] cc: Deisy Villar; Robles Charles D.O. The [place] [id number] Patient Name: ANGELA REYES MRN: [facility]:[id number] date: 1990 Sex: F Assigned Patient Location: US Current Patient Location: Accession/Order Number: [id number] Exam Date: 03/21/2025 09:18 Report Date: 03/21/2025 09:19 At the request of: DEISY VILLAR Procedure: US OB cervical length Ultrasound assessment of the cervical length The cervical length is 3.8 cm. The cervical os is closed. US/US OB cervical length IMPRESSION: #3.8 cm cervical length. Impression dictated by: Aguilar Durand M.D.03/21/2025 9:19 AM Dictation Location: [place] Electronically authenticated by: [id number] Y Date: 03/21/2025 09:19 Dictated By: Aguilar Durand D.O. Signed By: 03/21/25921 DD/ 8 TD/TT: Salon Receptionist: [facility] Radiology Study observation (narrative) [facility] US OB CERVICAL LENGTHOrdered By: Radiologist Radiology on 03-21-2025 [facility] Work Phone: IGP,APTIMA HPV,AGE GDLNon AGE GDLN ACOG TESTING Note . [facility] Comment on above: TESTS RESULT FLAG UN ITS REF RANGE LAB Clinician Provided Cytology Information Source.............Cervix Other.............. No. of containers..01 ThinPrep Vial Age Algo ACOG Lara... 30-65 01 FLAG LEGEND: L-Low Normal,H-High Normal,LL-Alert Low,HH-Alert High <-Panic Low,>-Panic High,A-Abnormal,AA-Critical Abnormal Performed at: 01 =G [address] [address] Ilana Heath MD, HPV APTIMA Negative Negative [facility] Comment on above: This nucleic acid am plification test detects fourteen high- risk HPV types (16,18,31,33,35,39,45,51,52,56,58,59,66,68) without differentiation. Performed at: =G - [facility], [place] [id number] Gas Operations Analyst: Ilana Heath MD, Phone: [phone] Performed at: - [facility], [place] [address] Gas Operations Analyst: Ilana Heath MD, Phone: [phone] IGP, APTIMA HPV, RFX 16/18,45 Note . [facility] Comment on above: TESTS RESULT FLAG UN ITS REF RANGE LAB DIAGNOSIS: 02 NEGATIVE FOR INTRAEPITHELIAL LESION OR MALIGNANCY. THIS SPECIMEN WAS RESCREENED PART OF OUR GROCERY STORE CLERK PROGRAM. Specimen adequacy: 02 Satisfactory for evaluation. No endocervical component is identified. Performed by: 03 Eugenia Kennedy, Registered Travel Nurse (ASCP) QC reviewed by: 02 Meredith Chávez, Cellar Supervisor . 02 Note: Note 02 The Pap [...] High,A-Abnormal,AA-Critical Abnormal Performed at: 02 WB [facility] [address] [place] [address] Ilana Heath MD, 03 KWCYT [facility] [place] [facility] [address] [place] [address] Lloyd Kim MD, SPATULA-ALONE CERVIX [facility] RECURRENT VAGINITIS (HTRX)on 03-03-2025 ATOPOBIUM VAGINAE 0 [facility] ATOPOBIUM VAGINAE Not detected [facility] BVAB 2,3 (BACTERIAL VAGINOSIS ASSOCIATED BACTERIA 2, 3); MOBILUNCUS SPP 0 [facility] BVAB 2,3 (BACTERIAL VAGINOSIS ASSOCIATED BACTERIA 2, 3); MOBILUNCUS SPP Not detected [facility] ANEUDY ALBICANS, PARAPSILOSIS, TROPICALIS 0 [facility] ANEUDY ALBICANS, PARAPSILOSIS, TROPICALIS Not detected [facility] ANEUDY GLABRATA 0 [facility] ANEUDY GLABRATA Not detected [facility] KRUSEI 0 [facility] ANEUDY KRUSEI Not detected [facility] CHLAMYDIA TRACHOMATIS 0 [facility] S [facility] CHLAMYDIA TRACHOMATIS Not detected N [facility] GARDNERELLA VAGINALIS 0 [facility] S [facility] GARDNERELLA VAGINALIS Not detected N [facility] MEGASPHAERA (TYPES 1, 2) 0 [facility] MEGASPHAERA (TYPES 1, 2) Not detected [facility] MYCOPLASMA GENITALIUM 0 [facility] S Healthcare MYCOPLASMA GENITALIUM Not detected N [facility] NEISSERIA GONORRHOEAE 0 [facility] NEISSERIA GONORRHOEAE Not detected N S [facility] TRICHOMONAS VAGINALIS 0 [facility] S [facility] TRICHOMONAS VAGINALIS Not detected N [facility] Healthcare Urinalysis macro (dipstick) panel (U)on 03-02-2025 Bilirubin, UA Negative Negative - 4(70) +++ mg/dL [facility] Blood, UA Negative Negative - 50 Ezequiel/mcL [facility] Clarity, UA Clear [facility] Color, UA Yellow [facility] Glucose, UA Negative Negative - 2000(110) ++++ mg/dL [facility] Interpretation and review of laboratory results Normal [facility] Ketones, UA Negative Negative - 160(16) ++++ mg/dL [facility] Leukocytes, UA Negative Negative - 500+++ Jason/mcL [facility] Nitrite, UA Negative Negative - Positive [facility] pH, UA 7 5 - 9 [facility] Protein, UA Negative Negative - 1999(20) ++++ mg/dL [facility] Spec Grav, UA 1.02 1 - 1.03 [facility] Urobilinogen, UA 0.2 0.2 - 12 mg/dL [facility] Urinalysis macro (dipstick) panel (U)on 02-02-2025 Bilirubin, UA Negative Negative - 4(70) +++ mg/dL [facility] Blood, UA Negative Negative - 50 Ezequiel/mcL [facility] Clarity, UA Clear [facility] Color, UA Yellow [facility] Glucose, UA Negative Negative - 1999(110) ++++ mg/dL [facility] Interpretation and review of laboratory results Abnormal [facility] Ketones, UA Negative Negative - 160(16) ++++ mg/dL [facility] Leukocytes, UA Trace Negative - 500+++ Jason/mcL [facility] Nitrite, UA Negative Negative - Positive [facility] pH, UA 6 5 - 9 [facility] Protein, UA Negative Negative - 1999(20) ++++ mg/dL [facility] Spec Grav, UA 1.025 1 - 1.03 [facility] Urobilinogen, UA 0.2 0.2 - 12 mg/dL [facility] ALL CBC WITH AUTO DIFFon BASOPHILS ABSOLUTE AUTO 0 N [facility] Basophils/100 WBC (Bld) 0.4 % 0.2 - 2.0 % [facility] Eosinophils/100 WBC (Bld) 2.2 % 0.9 - 7.0 % [facility] Erythrocyte distribution width (RBC) [Ratio] 12.5 % 11.0 - 15.0 % [facility] Hematocrit (Bld) [Volume fraction] 34 % Low 36.0 - 48.0 % [facility] Hemoglobin (Bld) [Mass/Vol] 11.7 g/dL Low 12.0 - 16.0 g/dL [facility] IMMATURE GRANULOCYTES ABS AUTO 0.03 [facility] Immature granulocytes/100 WBC (Bld) 0.4 % 0.0 - 0.5 % [facility] Interpretation and review of laboratory results Abnormal [facility] LYMPHOCYTES ABSOLUTE AUTO 1.6 [facility] Lymphocytes/100 WBC (Bld) 20.4 % Low 20.5 - 60.0 % [facility] MCH (RBC) [Entitic mass] 31.5 pg 26.7 - 34.0 pg [facility] MCHC (RBC) [Mass/Vol] 34.4 g/dL 29.9 - 35.2 g/dL [facility] MCV (RBC) [Entitic vol] 91.6 fL 81.0 - 99.0 fL [facility] MONOCYTES ABSOLUTE AUTO 0.6 N [facility] Monocytes/100 WBC (Bld) 7.2 % 1.7 - 12.0 % [facility] NEUTROPHILS ABSOLUTE AUTO 5.6 [facility] Neutrophils/100 WBC (Bld) 69.4 % 43.0 - 75.0 % [facility] Platelet mean volume (Bld) [Entitic vol] 9.6 fL 9.5 - 13.5 fL [facility] TBH EO # 0.2 [facility] TBH PLT 302 [facility] TB RBC 3.71 Low [facility] WBC 8 [facility] US OB TRANSVAGINALon 025 US [...] II, MD, PHD at 09-Jan-2025 09:10:54 AM [facility] Normal Not Available Comment on above: Order Comment: US OB TRANSVAGINAL No LMP recorded. [facility] PREG QUANT HCGon 025 HCG QUANTITATIVE 89539 mIU/mL [facility] Comment on above: 5-50 0.2-1 WEEK 50-500 1-2 WEEKS 100-5,000 2-3 WEEKS 500-10,000 3-4 WEEKS 1,000-50,000 4-5 WEEKS 10,000-100,000 5-6 WEEKS 15,000-200,000 6-8 WEEKS 10,000-100,000 2-[facility] HCGon 025 HCG QUANTITATIVE 37355 mIU/mL [facility] Comment on above: 5-50 0.2-1 WEEK 50-500 1-2 WEEKS 100-5,000 2-3 WEEKS 500-10,000 3-4 WEEKS 1,000-50,000 4-5 WEEKS 10,000-100,000 5-6 WEEKS 15,000-200,000 6-8 WEEKS 10,000-100,000 2[facility]ophil %Ordered By: Delano Francis on 09-22-2024 Basophils/100 WBC (Bld) 0.6 % Normal . F [facility] Comment on above: Performed By: #### D HEAS, LC T4, [id number], SEROTON, TEST F + T, T3R, THYGLOB AB, ESTRADIOL, TPO, SHBG, ESTRONE, INSULIN, PROG #### [facility] , #### T4F, TRISTEN, TSH3, A1C WTH eA, FILIBERTO, GLU, T3F #### [address] Automated basophil countOrde red By: Delano Francis on 09-22-2024 Basophils (Bld) [#/Vol] 0.0 10*3/uL Normal 0.0-0.2 [facility] Comment on above: Result Comment: PERF ORMED BY: [place] [address] PATHOLOGIST PICKING TECH JOSE GOEL M.D. Performed By: #### D HEAS, LC T4, [id number], SEROTON, TEST F + T, T3R, THYGLOB AB, ESTRADIOL, TPO, SHBG, ESTRONE, INSULIN, PROG #### [facility] , #### T4F, TRISTEN, TSH3, A1C WTH eA, FILIBERTO, GLU, T3F #### [address] Automated blood monocyte cou ntOrdered By: Delano Francis on 09-22-2024 Monocytes (Bld) [#/Vol] 0.4 10*3/uL Normal 0.0-0.8 [facility] Comment on above: Performed By: #### D HEAS, LC T4, [id number], SEROTON, TEST F + T, T3R, THYGLOB AB, ESTRADIOL, TPO, SHBG, ESTRONE, INSULIN, PROG #### [facility] , #### T4F, TRISTEN, TSH3, A1C WTH eA, FILIBERTO, GLU, T3F #### [facility] [address] [place] [address] Automated eosinophil %Ordere d By: Delano Francis on 09-22-2024 Eosinophils/100 WBC (Bld) 1.7 % Normal . [facility] Comment on above: Performed By: #### D HEAS, LC T4, [id number], SEROTON, TEST F + T, T3R, THYGLOB AB, ESTRADIOL, TPO, SHBG, ESTRONE, INSULIN, PROG #### [facility] , #### T4F, TRISTEN, TSH3, A1C WTH eA, FILIBERTO, GLU, T3F #### [address] Automated eosinophil countOr dered By: Delano Francis on 09-22-2024 Eosinophils (Bld) [#/Vol] 0.1 10*3/uL Normal 0.0-0.45 [facility] Comment on above: Performed By: #### D HEAS, LC T4, [id number], SEROTON, TEST F + T, T3R, THYGLOB AB, ESTRADIOL, TPO, SHBG, ESTRONE, INSULIN, PROG #### [facility] , #### T4F, TRISTEN, TSH3, A1C WTH eA, FILIBERTO, GLU, T3F #### [facility] [address] Automated monocyte %Ordered By: Delano Francis on 09-22-2024 Monocytes/100 WBC (Bld) 8.7 % Normal . [facility] Comment on above: Performed By: #### D HEAS, LC T4, [id number], SEROTON, TEST F + T, T3R, THYGLOB AB, ESTRADIOL, TPO, SHBG, ESTRONE, INSULIN, PROG #### [facility] , #### T4F, TRISTEN, TSH3, A1C WTH eA, FILIBERTO, GLU, T3F #### [facility] [address] [place] [address] Automated neutrophil %Ordere d By: Delano Francis on 09-22-2024 Neutrophils/100 WBC (Bld) 63.7 % Normal . [facility] Comment on above: Performed By: #### D HEAS, LC T4, [id number], SEROTON, TEST F + T, T3R, THYGLOB AB, ESTRADIOL, TPO, SHBG, ESTRONE, INSULIN, PROG #### [facility] , #### T4F, TRISTEN, TSH3, A1C WTH eA, FILIBERTO, GLU, T3F #### [facility] [address] [place] [address] [place] Basophils Auto (Bld) [#/Vol] Ordered By: Delano Francis on 09-22-2024 Basophils (Bld) [#/Vol] Automated basophil count 0.0-0.2 [facility] Basophils/100 WBC Auto (Bld) Ordered By: Delano Francis on 09-22-2024 Basophils/100 WBC (Bld) Automated basophil % . [facility] Calcium [Mass/volume] in Ser um or PlasmaOrdered By: Delano Francis on 09-22-2024 Calcium [Mass/Vol] 9.4 mg/dL Normal 8.6-10.3 [facility] Comment on above: Performed By: #### D VENITA, LC T4, [id number], SEROTON, TEST F + T, T3R, THYGLOB AB, ESTRADIOL, TPO, SHBG, ESTRONE, INSULIN, PROG #### [facility] , #### T4F, TRISTEN, TSH3, A1C WTH eA, FILIBERTO, GLU, T3F #### [facility] [address] Calcium [Mass/Vol] Calcium [Mass/volume ] in Serum or Plasma 8.6-10.3 [facility] Carbon dioxide, total [Moles /volume] in Serum or PlasmaOrdered By: Delano Francis on 09-22-2024 CO2 [Moles/Vol] 29.2 mmol/L Normal 21.0-31.0 [facility] Comment on above: Performed By: #### D VENITA, LC T4, [id number], SEROTON, TEST F + T, T3R, THYGLOB AB, ESTRADIOL, TPO, SHBG, ESTRONE, INSULIN, PROG #### [facility] , #### T4F, TRISTEN, TSH3, A1C WTH eA, FILIBERTO, GLU, T3F #### [facility] [address] [place] [address] [place] CO2 [Moles/Vol] Carbon dioxide, tota l [Moles/volume] in Serum or Plasma 21.0-31.0 [facility] Chloride [Moles/volume] in S stevo or PlasmaOrdered By: Delano Francis on 09-22-2024 Chloride [Moles/Vol] 105 mmol/L Normal 98-107 [facility] Comment on above: Performed By: #### D HEAS, LC T4, [id number], SEROTON, TEST F + T, T3R, THYGLOB AB, ESTRADIOL, TPO, SHBG, ESTRONE, INSULIN, PROG #### [facility] , #### T4F, TRISTEN, TSH3, A1C WTH eA, FILIBERTO, GLU, T3F #### [facility] [address] Chloride [Moles/Vol] Chloride [Moles/vol ume] in Serum or Plasma 98-107 [facility] Cholesterol [Mass/volume] in Serum or PlasmaOrdered By: Delano Francis on 09-22-2024 Cholesterol [Mass/Vol] 217 mg/dL High 140-200 [facility] Comment on above: Chol less than 200 m g/dl low riskChol 201-239 mg/dl borderline riskChol 240 mg/dl and greater high risk Result Comment: Chol less than 200 mg/dl low risk Chol 201-239 mg/dl borderline risk Chol 240 mg/dl and greater high risk Performed By: #### D HEAS, LC T4, [id number], SEROTON, TEST F + T, T3R, THYGLOB AB, ESTRADIOL, TPO, SHBG, ESTRONE, INSULIN, PROG #### [facility] , #### T4F, TRISTEN, TSH3, A1C WTH eA, FILIBERTO, GLU, T3F #### [facility] [address] Cholesterol [Mass/Vol] Cholesterol [Mass/volume] in Serum or Plasma High 140-200 [facility] Comment on above: Chol less than 200 m g/dl low riskChol 201-239 mg/dl borderline riskChol 240 mg/dl and greater high risk Cholesterol in HDL [Mass/vol ume] in Serum or PlasmaOrdered By: Delano Francis on 09-22-2024 Cholesterol in HDL [Mass/Vol] Serum or plasma high density lipoprotein (HDL) cholesterol measurement 23- [facility] Comment on above: HDL CHOL ATP-III CLA SSIFICATION Cardiovascular RiskHDL > or equal to 60 mg/dL LOWHDL < 40 mg/dL HIGH Cholesterol in LDL Calc [Mas s/Vol]Ordered By: Delano Francis on 09-22-2024 Cholesterol in LDL [Mass/Vol] 148 mg/dL High 0-100 [facility] Comment on above: LDL ATP III CLASSIFI CATIONLDL less than 100 mg/dL OptimalLDL 100-129 mg/dL Near or above optimalLDL 130-159 mg/dL Borderline highLDL 160-189 mg/dL HighLDL greater than 189 mg/dL Very high Cholesterol in LDL [Mass/Vol] Cholesterol in LDL [Mass/volume] in Serum or Plasma by calculation High 0-100 [facility] Comment on above: LDL ATP III CLASSIFI CATIONLDL less than 100 mg/dL OptimalLDL 100-129 mg/dL Near or above optimalLDL 130-159 mg/dL Borderline highLDL 160-189 mg/dL HighLDL greater than 189 mg/dL Very high Cholesterol in VLDL Calc [Ma ss/Vol]Ordered By: Delano Francis on 09-22-2024 Cholesterol in VLDL [Mass/Vol] 10 mg/dL [facility] Cholesterol in VLDL [Mass/Vol] Cholesterol in VLDL [Mass/volume] in Serum or Plasma by calculation [facility] Creatinine [Mass/volume] in Serum or PlasmaOrdered By: Delano Francis on 09-22-2024 Creatinine [Mass/Vol] 0.73 mg/dL Normal 0.60-1.20 [facility] Comment on above: Performed By: #### D JOSSE NATHAN T4, [id number], SEROTON, TEST F + T, T3R, THYGLOB AB, ESTRADIOL, TPO, SHBG, ESTRONE, INSULIN, PROG #### [facility] , #### T4F, TRISTEN, TSH3, A1C WTH eA, FILIBERTO, GLU, T3F #### [facility] [address] [place] [address] Creatinine [Mass/Vol] Creatinine [Mass/v olume] in Serum or Plasma 0.60-1.20 [facility] Employee Basic Metabolic [place] 09-22-2024 GFR/1.73 sq M.predicted MDRD (S/P/Bld) [Vol rate/Area] mL/min/{1.73_m2} Normal [facility] Comment on above: Performed By: #### D JOSSE NATHAN T4, [id number], SEROTON, TEST F + T, T3R, THYGLOB AB, ESTRADIOL, TPO, SHBG, ESTRONE, INSULIN, PROG #### [facility] , #### T4F, TRISTEN, TSH3, A1C WTH eA, FILIBERTO, GLU, T3F #### [facility] [address] Employee Complete Blood Coun ton 09-22-2024 Mean Corpuscular HGB Conc 34.2 g/dL Normal 32.0-35.0 [facility] Comment on above: Performed By: #### D HEAS, LC T4, [id number], SEROTON, TEST F + T, T3R, THYGLOB AB, ESTRADIOL, TPO, SHBG, ESTRONE, INSULIN, PROG #### [facility] , #### T4F, TRISTEN, TSH3, A1C WTH eA, FILIBERTO, GLU, T3F #### [address] NRBC% 0.0 /100{WBC} Normal 0-0.5 [facility] Comment on above: Performed By: #### D HEAS, LC T4, [id number], SEROTON, TEST F + T, T3R, THYGLOB AB, ESTRADIOL, TPO, SHBG, ESTRONE, INSULIN, PROG #### [facility] , #### T4F, TRISTEN, TSH3, A1C WTH eA, FILIBERTO, GLU, T3F #### [address] Employee Lipid Profileon LDL Cholesterol,Calculated 148 mg/dL High 0-100 [facility] Comment on above: Result Comment: LDL ATP III CLASSIFICATION LDL less than 100 mg/dL Optimal LDL 100-129 mg/dL Near or above optimal LDL 130-159 mg/dL Borderline high LDL 160-189 mg/dL High LDL greater than 189 mg/dL Very high Performed By: #### D HEAS, LC T4, [id number], SEROTON, TEST F + T, T3R, THYGLOB AB, ESTRADIOL, TPO, SHBG, ESTRONE, INSULIN, PROG #### [facility] , #### T4F, TRISTEN, TSH3, A1C WTH eA, FILIBERTO, GLU, T3F #### [address] Triglyceride w/Reflex 52 mg/dL Normal 0-149 [facility] Comment on above: Result Comment: TRIG ATP III CLASSIFICATION TRIG less than 150 mg/dL Normal TRIG 150-199 mg/dL Borderline high TRIG 200-500 mg/dL High TRIG greater than 500 mg/dL Very high Standard traceable to the Center for Disease Conrtrol and Prevention (CDC) test method. Performed By: #### D HEAS, LC T4, [id number], SEROTON, TEST F + T, T3R, THYGLOB AB, ESTRADIOL, TPO, SHBG, ESTRONE, INSULIN, PROG #### [facility] , #### T4F, TRISTEN, TSH3, A1C WTH eA, FILIBERTO, GLU, T3F #### [address] VLDL CHOLESTEROL 10 mg/dL Normal [facility] Comment on above: Performed By: #### D HEAS, LC T4, [id number], SEROTON, TEST F + T, T3R, THYGLOB AB, ESTRADIOL, TPO, SHBG, ESTRONE, INSULIN, PROG #### [facility] , #### T4F, TRISTEN, TSH3, A1C WTH eA, FILIBERTO, GLU, T3F #### [address] Employee Thyroid Stim [place]orm[place] lonnie 09-22-2024 Employee Thyroid Stim Hormone 2.30 u[iU]/mL Normal 0.45-5.33 [facility] Comment on above: Result Comment: PERF ORMED BY: [place] [address] PATHOLOGIST PICKING TECH JOSE GOEL M.D. Performed By: #### D HEAS, LC T4, [id number], SEROTON, TEST F + T, T3R, THYGLOB AB, ESTRADIOL, TPO, SHBG, ESTRONE, INSULIN, PROG #### [facility] , #### T4F, TRISTEN, TSH3, A1C WTH eA, FILIBERTO, GLU, T3F #### [facility] [address] [place] [address] [place] Eosinophils Auto (Bld) [#/Vo l]Ordered By: Delano Francis on 09-22-2024 Eosinophils (Bld) [#/Vol] Automated eosinophil count 0.0-0.45 [facility] Eosinophils/100 WBC Auto (Bl d)Ordered By: Delano Francis on 09-22-2024 Eosinophils/100 WBC (Bld) Automated eosinophil % . [facility] Erythrocyte distribution wid th Auto (RBC) [Ratio]Ordered By: Delano Francis on 09-22-2024 Erythrocyte distribution width (RBC) [Ratio] Erythrocyte distribution width [Ratio] by Automated count 11.9-15.3 [facility] Erythrocyte distribution wid th [Ratio] by Automated countOrdered By: Delano Francis on 09-22-2024 Erythrocyte distribution width (RBC) [Ratio] 13.2 % Normal 11.9-15.3 [facility] Comment on above: Performed By: #### D HEAS, LC T4, [id number], SEROTON, TEST F + T, T3R, THYGLOB AB, ESTRADIOL, TPO, SHBG, ESTRONE, INSULIN, PROG #### [facility] , #### T4F, TRISTEN, TSH3, A1C WTH eA, FILIBERTO, GLU, T3F #### [facility] [address] Erythrocytes [#/volume] in B lood by Automated countOrdered By: Delano Francis on 09-22-2024 RBC (Bld) [#/Vol] 3.91 10*6/uL Normal 3.60-5.00 [facility] Comment on above: Performed By: #### D HEAS, LC T4, [id number], SEROTON, TEST F + T, T3R, THYGLOB AB, ESTRADIOL, TPO, SHBG, ESTRONE, INSULIN, PROG #### [facility] , #### T4F, TRISTEN, TSH3, A1C WTH eA, FILIBERTO, GLU, T3F #### [facility] [address] [place] [address] [place] Glucose [Mass/volume] in Ser um or PlasmaOrdered By: Delano Francis on 09-22-2024 Glucose [Mass/Vol] 83 mg/dL Normal 70-100 [facility] Comment on above: Performed By: #### D VENITA, LC T4, [id number], SEROTON, TEST F + T, T3R, THYGLOB AB, ESTRADIOL, TPO, SHBG, ESTRONE, INSULIN, PROG #### [facility] , #### T4F, TRISTEN, TSH3, A1C WTH eA, FILIBERTO, GLU, T3F #### [facility] [address] [place] [address] [place] Glucose [Mass/Vol] Glucose [Mass/volume ] in Serum or Plasma 70-100 [facility] Hematocrit Auto (Bld) [Volum e fraction]Ordered By: Delano Francis on 09-22-2024 Hematocrit (Bld) [Volume fraction] Hematocrit [Volume Fraction] of Blood by Automated count 34.0-46.4 [facility] Hematocrit [Volume Fraction] of Blood by Automated countOrdered By: Delano Francis on 09-22-2024 Hematocrit (Bld) [Volume fraction] 35.9 % Normal 34.0-46.4 [facility] Comment on above: Performed By: #### D VENITA, LC T4, [id number], SEROTON, TEST F + T, T3R, THYGLOB AB, ESTRADIOL, TPO, SHBG, ESTRONE, INSULIN, PROG #### [facility] , #### T4F, TRISTEN, TSH3, A1C WTH eA, FILIBERTO, GLU, T3F #### [facility] [address] [place] [address] [place] Hemoglobin [Mass/volume] in BloodOrdered By: Delano Francis on 09-22-2024 Hemoglobin (Bld) [Mass/Vol] 12.3 g/dL Normal 11.8-15.4 [facility] Comment on above: Performed By: #### D HEAS, LC T4, [id number], SEROTON, TEST F + T, T3R, THYGLOB AB, ESTRADIOL, TPO, SHBG, ESTRONE, INSULIN, PROG #### [facility] , #### T4F, TRISTEN, TSH3, A1C WTH eA, FILIBERTO, GLU, T3F #### [facility] [address] Hemoglobin (Bld) [Mass/Vol] Hemoglobin [Mass/volume] in Blood 11.8-15.4 [facility] Leukocytes [#/volume] correc calvin for nucleated erythrocytes in Blood by Automated counOrdered By: Delano Francis on 09-22-2024 WBC corrected for nucl RBC Auto (Bld) [#/Vol] 5.1 10*3/uL 3.8-11.6 [facility] WBC corrected for nucl RBC Auto (Bld) [#/Vol] Leukocytes [#/volume] corrected for nucleated erythrocytes in Blood by Automated coun 3.8-11.6 [facility] Leukocytes [#/volume] in Blo od by Automated countOrdered By: Delano Francis on 09-22-2024 WBC (Bld) [#/Vol] 5.1 10*3/uL Normal 3.8-11.6 [facility] Comment on above: Performed By: #### D HEAS, LC T4, [id number], SEROTON, TEST F + T, T3R, THYGLOB AB, ESTRADIOL, TPO, SHBG, ESTRONE, INSULIN, PROG #### [facility] , #### T4F, TRISTEN, TSH3, A1C WTH eA, FILIBERTO, GLU, T3F #### [facility] [address] Lymphocytes Auto (Bld) [#/Vo l]Ordered By: Delano Francis on 09-22-2024 Lymphocytes (Bld) [#/Vol] Lymphocytes [#/volume] in Blood by Automated count 1.00-4.8 [facility] Lymphocytes [#/volume] in Bl ood by Automated countOrdered By: Delano Francis on 09-22-2024 Lymphocytes (Bld) [#/Vol] 1.3 10*3/uL Normal 1.00-4.8 [facility] Comment on above: Performed By: #### D HEAS, LC T4, [id number], SEROTON, TEST F + T, T3R, THYGLOB AB, ESTRADIOL, TPO, SHBG, ESTRONE, INSULIN, PROG #### [facility] , #### T4F, TRISTEN, TSH3, A1C WTH eA, FILIBERTO, GLU, T3F #### [address] Lymphocytes/100 WBC Auto (Bl d)Ordered By: Delano Francis on 09-22-2024 Lymphocytes/100 WBC (Bld) Lymphocytes/100 leukocytes in Blood by Automated count . [facility] Lymphocytes/100 leukocytes i n Blood by Automated countOrdered By: Delano Francis on 09-22-2024 Lymphocytes/100 WBC (Bld) 25.3 % Normal . [facility] Comment on above: Performed By: #### D HEAS, LC T4, [id number], SEROTON, TEST F + T, T3R, THYGLOB AB, ESTRADIOL, TPO, SHBG, ESTRONE, INSULIN, PROG #### [facility] , #### T4F, TRISTEN, TSH3, A1C WTH eA, FILIBEROT, GLU, T3F #### [address] MCH Auto (RBC) [Entitic mass ]Ordered By: Delano Francis on 09-22-2024 MCH (RBC) [Entitic mass] MCH [Entitic mass] by Automated count 24.7-34.3 [facility] MCH [Entitic mass] by Automa calvin countOrdered By: Delano Francis on 09-22-2024 MCH (RBC) [Entitic mass] 31.4 pg Normal 24.7-34.3 [facility] Comment on above: Performed By: #### D HEAS, LC T4, [id number], SEROTON, TEST F + T, T3R, THYGLOB AB, ESTRADIOL, TPO, SHBG, ESTRONE, INSULIN, PROG #### [facility] , #### T4F, TRISTEN, TSH3, A1C WTH eA, FILIBERTO, GLU, T3F #### [facility] [address] MCHC Auto (RBC) [Mass/Vol]Or dered By: eDlano Francis on 09-22-2024 MCHC (RBC) [Mass/Vol] 34.2 g/dL 32.0-35.0 [facility] MCHC (RBC) [Mass/Vol] MCHC [Mass/volume] by Automated count 32.0-35.0 [facility] MCV Auto (RBC) [Entitic vol] Ordered By: Delano Francis on 09-22-2024 MCV (RBC) [Entitic vol] MCV [Entitic vol ume] by Automated count 80-100 [facility] MCV [Entitic volume] by Auto mated countOrdered By: Delano Francis on 09-22-2024 MCV (RBC) [Entitic vol] 91.7 fL Normal 80-100 [facility] Comment on above: Performed By: #### D HEAS, LC T4, [id number], SEROTON, TEST F + T, T3R, THYGLOB AB, ESTRADIOL, TPO, SHBG, ESTRONE, INSULIN, PROG #### [facility] , #### T4F, TRISTEN, TSH3, A1C WTH eA, FILIBERTO, GLU, T3F #### [facility] [address] Monocytes Auto (Bld) [#/Vol] Ordered By: Delano Francis on 09-22-2024 Monocytes (Bld) [#/Vol] Automated blood monocyte count 0.0-0.8 [facility] Monocytes/100 WBC Auto (Bld) Ordered By: Delano Francis on 09-22-2024 Monocytes/100 WBC (Bld) Automated monocyte % . [facility] Neutrophils Auto (Bld) [#/Vo l]Ordered By: Delano Francis on 09-22-2024 Neutrophils (Bld) [#/Vol] Neutrophils [#/volume] in Blood by Automated count 1.8-7.7 [facility] Neutrophils [#/volume] in Bl ood by Automated countOrdered By: Delano Francis on 09-22-2024 Neutrophils (Bld) [#/Vol] 3.2 10*3/uL Normal 1.8-7.7 [facility] Comment on above: Performed By: #### D HEAS, LC T4, [id number], SEROTON, TEST F + T, T3R, THYGLOB AB, ESTRADIOL, TPO, SHBG, ESTRONE, INSULIN, PROG #### [facility] , #### T4F, TRISTEN, TSH3, A1C WTH eA, FILIBERTO, GLU, T3F #### [facility] [address] Neutrophils/100 WBC Auto (Bl d)Ordered By: Delano Francis on 09-22-2024 Neutrophils/100 WBC (Bld) Automated neutrophil % . [facility] No Panel InformationOrdered By: Delano Francis on 09-22-2024 Estimated GFR (CKD-EPI) > 60.0 mL/Min [facility] Creatinine Clearance (Chem N/A [facility] Nucleated erythrocytes [Pres ence] in Blood by Automated countOrdered By: Delano Francis on 09-22-2024 Nucleated RBC Auto Ql (Bld) 0.0 /100{WBC} 0-0.5 [facility] Nucleated RBC Auto Ql (Bld) Nucleated erythrocytes [Presence] in Blood by Automated count 0-0.5 [facility] Platelet mean volume Auto (B ld) [Entitic vol]Ordered By: Delano Francis on 09-22-2024 Platelet mean volume (Bld) [Entitic vol] Platelet mean volume [Entitic volume] in Blood by Automated count 6.3-10.7 [facility] Platelet mean volume [Entiti c volume] in Blood by Automated countOrdered By: Delano Francis on 09-22-2024 Platelet mean volume (Bld) [Entitic vol] 7.3 fL Normal 6.3-10.7 [facility] Comment on above: Performed By: #### D HEAS, LC T4, [id number], SEROTON, TEST F + T, T3R, THYGLOB AB, ESTRADIOL, TPO, SHBG, ESTRONE, INSULIN, PROG #### [facility] , #### T4F, TRISTEN, TSH3, A1C WTH eA, FILIBERTO, GLU, T3F #### [facility] [address] Platelets Auto (Bld) [#/Vol] Ordered By: Delano Francis on 09-22-2024 Platelets (Bld) [#/Vol] Platelets [#/vol ume] in Blood by Automated count 150-450 [facility] Platelets [#/volume] in Bloo d by Automated countOrdered By: Delano Francis on 09-22-2024 Platelets (Bld) [#/Vol] 328 10*3/uL Normal 150-450 [facility] Comment on above: Performed By: #### D HEAS, LC T4, [id number], SEROTON, TEST F + T, T3R, THYGLOB AB, ESTRADIOL, TPO, SHBG, ESTRONE, INSULIN, PROG #### [facility] , #### T4F, TRISTEN, TSH3, A1C WTH eA, FILIBERTO, GLU, T3F #### [facility] [address] [place] [address] [place] Potassium [Moles/volume] in Serum or PlasmaOrdered By: Delano Francis on 09-22-2024 Potassium [Moles/Vol] 4.5 mmol/L Normal 3.5-5.1 [facility] Comment on above: Performed By: #### D HEAS, LC T4, [id number], SEROTON, TEST F + T, T3R, THYGLOB AB, ESTRADIOL, TPO, SHBG, ESTRONE, INSULIN, PROG #### [facility] , #### T4F, TRISTEN, TSH3, A1C WTH eA, FILIBERTO, GLU, T3F #### [facility] [address] [place] [address] [place] Potassium [Moles/Vol] Potassium [Moles/v olume] in Serum or Plasma 3.5-5.1 [facility] RBC Auto (Bld) [#/Vol]Ordere d By: Delano Francis on 09-22-2024 RBC (Bld) [#/Vol] Erythrocytes [#/volu me] in Blood by Automated count 3.60-5.00 [facility] Serum or plasma anion gap de terminationOrdered By: Delano Francis on 09-22-2024 Anion gap [Moles/Vol] 8.3 mmol/L Normal 6.0-15.0 [facility] Comment on above: Performed By: #### D VENITA, LC T4, [id number], SEROTON, TEST F + T, T3R, THYGLOB AB, ESTRADIOL, TPO, SHBG, ESTRONE, INSULIN, PROG #### [facility] , #### T4F, TRISTEN, TSH3, A1C WTH eA, FILIBERTO, GLU, T3F #### [facility] [address] Anion gap [Moles/Vol] Serum or plasma an ion gap determination 6.0-15.0 [facility] Serum or plasma high density lipoprotein (HDL) cholesterol measurementOrdered By: Delano Francis on 09-22-2024 Cholesterol in HDL [Mass/Vol] 59 mg/dL Normal 23-92 [facility] Comment on above: HDL CHOL ATP-III CLA SSIFICATION Cardiovascular RiskHDL > or equal to 60 mg/dL LOWHDL < 40 mg/dL HIGH Result Comment: HDL CHOL ATP-III CLASSIFICATION Cardiovascular Risk HDL > or equal to 60 mg/dL LOW HDL < 40 mg/dL HIGH Performed By: #### D VENITA, LC T4, [id number], SEROTON, TEST F + T, T3R, THYGLOB AB, ESTRADIOL, TPO, SHBG, ESTRONE, INSULIN, PROG #### [facility] , #### T4F, TRISTEN, TSH3, A1C WTH eA, FILIBERTO, GLU, T3F #### [facility] [address] Serum or plasma total choles terol/high density lipoprotein (HDL) cholesterol mass ratOrdered By: Delano Francis on 09-22-2024 Cholesterol.total/Alivia sterol in HDL [Mass ratio] 3.7 {ratio} Normal <5.0 [facility] Comment on above: Performed By: #### D HEAS, LC T4, [id number], SEROTON, TEST F + T, T3R, THYGLOB AB, ESTRADIOL, TPO, SHBG, ESTRONE, INSULIN, PROG #### [facility] , #### T4F, TRISTEN, TSH3, A1C WTH eA, FILIBERTO, GLU, T3F #### [facility] [address] Cholesterol.total/Alivia sterol in HDL [Mass ratio] Serum or plasma total cholesterol/high density lipoprotein (HDL) cholesterol mass rat <5.0 [facility] Sodium [Moles/volume] in Ser um or PlasmaOrdered By: Delano Francis on 09-22-2024 Sodium [Moles/Vol] 138 mmol/L Normal 136-145 [facility] Comment on above: Performed By: #### D HEAS, LC T4, [id number], SEROTON, TEST F + T, T3R, THYGLOB AB, ESTRADIOL, TPO, SHBG, ESTRONE, INSULIN, PROG #### [facility] , #### T4F, TRISTEN, TSH3, A1C WTH eA, FILIBERTO, GLU, T3F #### [facility] [address] Sodium [Moles/Vol] Sodium [Moles/volume ] in Serum or Plasma 136-145 [facility] Thyrotropin [Units/volume] i n Serum or PlasmaOrdered By: Delano Francis on 09-22-2024 TSH Qn 2.30 m[IU]/L 0.45-5.33 [facility] TSH Qn Thyrotropin [Units/volume] in Serum or Plasma 0.45-5.33 [facility] Triglyceride [Mass/volume] i n Serum or [...] Triglyceride [Mass/volume] in Serum or Plasma 0-149 [facility] Comment on above: TRIG ATP III CLASSIF ICATIONTRIG less than 150 mg/dL NormalTRIG 150-199 mg/dL Borderline highTRIG 200-500 mg/dL High TRIG greater than 500 mg/dL Very highStandard traceable to the Center for Disease Conrtrol and Prevention (CDC) test method. Urea nitrogen [Mass/volume] in Serum or PlasmaOrdered By: Delano Francis on 09-22-2024 Urea nitrogen [Mass/Vol] 9 mg/dL Normal 06-23 [facility] Comment on above: Performed By: #### D VENITA, JOSSE T4, [id number], SEROTON, TEST F + T, T3R, THYGLOB AB, ESTRADIOL, TPO, SHBG, ESTRONE, INSULIN, PROG #### [facility] , #### T4F, TRISTEN, TSH3, A1C WTH eA, FILIBERTO, GLU, T3F #### [facility] [address] Urea nitrogen [Mass/Vol] Urea nitrogen [Mass/volume] in Serum or Plasma 06-23 [facility] WBC Auto (Bld) [#/Vol]Ordere d By: Delano Francis on 09-22-2024 WBC (Bld) [#/Vol] Leukocytes [#/volume ] in Blood by Automated count 3.8-11.6 [facility] IGP,APTIMA HPV,AGE GDLNon AGE GDLN ACOG TESTING Note . [facility] Comment on above: TESTS RESULT FLAG UN ITS REF RANGE LAB Clinician Provided Cytology Information Source.............Cervix;Endocervix No. of containers..01 ThinPrep Vial Age Algo ACOG Lara... 30- FLAG LEGEND: L-Low Normal,H-High Normal,LL-Alert Low,HH-Alert High <-Panic Low,>-Panic High,A-Abnormal,AA-Critical Abnormal Performed at: 01 =[address] [id number] Ilana Heath MD, HPV APTIMA Negative Negative [facility] Comment on above: This nucleic acid am plification test detects fourteen high- risk HPV types (16,18,31,33,35,39,45,51,52,56,58,59,66,68) without differentiation. Performed at: =[address] [id number] Gas Operations Analyst: Ilana Heath MD, Phone: [phone] Performed at: [address] [id number] Gas Operations Analyst: Ilana Heath MD, Phone: [phone] IGP, APTIMA HPV, RFX 16/18,45 Note . [facility] Comment on above: TESTS RESULT FLAG UN ITS REF RANGE LAB DIAGNOSIS: 02 NEGATIVE FOR INTRAEPITHELIAL LESION OR MALIGNANCY. Specimen adequacy: 02 Satisfactory for evaluation. No endocervical component is identified. Performed by: 02 Chema Camargo, Cellar Supervisor ([facility]) . 02 Note: Note 02 The Pap [...] High,A-Abnormal,AA-Critical Abnormal Performed at: 02 [facility] [address] [id number] Ilana Heath MD, [facility],25 Dihydroxy Vit D Calcitr olon 01-07-2024 1,25 Dihydroxy Vit D Calcitrol 56.6 pg/mL Normal 24.8-81.5 [facility] Comment on above: Result Comment: Perf ormed at: BN - [facility] [address] [id number] Gas Operations Analyst: Quinton Wolf MD, Phone: [phone] Performed By: #### D JOSSE NATHAN T4, [id number], SEROTON, TEST F + T, T3R, THYGLOB AB, ESTRADIOL, TPO, SHBG, ESTRONE, INSULIN, PROG #### [facility] , #### T4F, TRISTEN, TSH3, A1C WTH eA, FILIBERTO, GLU, T3F #### [address] A1C with Estimated Average G luon 01-07-2024 Glucose [Mass/Vol] 105 mg/dL Normal [facility] Comment on above: Result Comment: PERF ORMED BY: [place] [address] PATHOLOGIST PICKING TECH JOSE GOEL M.D. Performed By: #### D VENITA, LC T4, [id number], SEROTON, TEST F + T, T3R, THYGLOB AB, ESTRADIOL, TPO, SHBG, ESTRONE, INSULIN, PROG #### [facility] , #### T4F, TRISTEN, TSH3, A1C WTH eA, FILIBERTO, GLU, T3F #### [address] Antithyroglobulin Abon 01-07 Antithyroglobulin Ab <1.0 Normal 0.0-0.9 [facility] Comment on above: Result Comment: Thyr oglobulin Antibody measured by [employer] Methodology Performed at: - [facility] [id number] Gas Operations Analyst: Baudilio Leyva PhD, Phone: [phone] Performed By: #### Adria NATHAN, LC T4, [id number], SEROTON, TEST F + T, T3R, THYGLOB AB, ESTRADIOL, TPO, SHBG, ESTRONE, INSULIN, PROG #### [facility] , #### T4F, TRISTEN, TSH3, A1C WTH eA, FILIBERTO, GLU, T3F #### [address] Cortisolon 01-07-2024 Cortisol 6.8 ug/dL Normal [facility] Comment on above: Result Comment: Refe rence range: AM 6 - 24 ug/dl PM <10 ug/dl [facility] 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 PERFORMED BY: [place] [address] PATHOLOGIST PICKING TECH JOSE GOEL M.D. Performed By: #### D HEAS, LC T4, [id number], SEROTON, TEST F + T, T3R, THYGLOB AB, ESTRADIOL, TPO, SHBG, ESTRONE, INSULIN, PROG #### [facility] , #### T4F, TRISTEN, TSH3, A1C WTH eA, FILIBERTO, GLU, T3F #### [facility] [address] [id number] [facility] Dehydroepiandrosterone Sulfa teOrdered By: Deisy Villar on 01-07-2024 Dehydroepiandrosterone Sulfate 174.0 ug/dL Normal 84.8-378.0 [facility] Comment on above: Performed By: #### D VENITA, LC T4, [id number], SEROTON, TEST F + T, T3R, THYGLOB AB, ESTRADIOL, TPO, SHBG, ESTRONE, INSULIN, PROG #### [facility] , #### T4F, TRISTEN, TSH3, A1C WTH eA, FILIBERTO, GLU, T3F #### [facility] [address] [id number] [facility] Estradiolon 01-07-2024 Estradiol 300.0 pg/mL Normal . [facility] Comment on above: Result Comment: Adul t Female Range Follicular phase 12.5 - 166.0 Ovulation phase 85.8 - 498.0 Luteal phase 43.8 - 211.0 Postmenopausal <6.0 - 54.7 1st trimester 215.0 - >4300.0 Elías ECLIA methodology Performed By: #### D VENITA, LC T4, [id number], SEROTON, TEST F + T, T3R, THYGLOB AB, ESTRADIOL, TPO, SHBG, ESTRONE, INSULIN, PROG #### [facility] , #### T4F, TRISTEN, TSH3, A1C WTH eA, FILIBERTO, GLU, T3F #### [facility] [address] [id number] [facility] Estrone, Serumon 01-07-2024 Estrone, Serum 46 pg/mL Normal 27-231 [facility] Comment on above: Result Comment: Rang e Adult (Premenopausal) 27 - 231 Menstrual Cycle (1-10 days) 19 - 149 Menstrual Cycle (11-20 days) 32 - 176 Menstrual Cycle (21-30 days) 37 - 200 Performed at: [address] [id number] Gas Operations Analyst: Quinton Wolf MD, Phone: [phone] Performed By: #### D HEAS, LC T4, [id number], SEROTON, TEST F + T, T3R, THYGLOB AB, ESTRADIOL, TPO, SHBG, ESTRONE, INSULIN, PROG #### [facility] , #### T4F, TRISTEN, TSH3, A1C WTH eA, FILIBERTO, GLU, T3F #### [facility] [address] [id number] [place] Ferritin [Mass/volume] in Se rum or PlasmaOrdered By: Deisy Villar on 01-07-2024 Ferritin [Mass/Vol] 44.8 ng/mL Normal 11.0-306.8 [facility] Comment on above: Performed By: #### D HEAS, LC T4, [id number], SEROTON, TEST F + T, T3R, THYGLOB AB, ESTRADIOL, TPO, SHBG, ESTRONE, INSULIN, PROG #### [facility] , #### T4F, TRISTEN, TSH3, A1C WTH eA, FILIBERTO, GLU, T3F #### [facility] [address] [id number] [facility] Free testosterone measuremen t by LC-MS/MSOrdered By: Deisy Villar on 01-07-2024 Testosterone Free [Mass/Vol] 0.3 pg/mL 0.0-4.2 [facility] Comment on above: Performed at: [address] [id number] Director: Baudilio Leyva PhD, Phone: [phone] at: [address] [id number] Director: Quinton Wolf MD, Phone: [phone] Glucose [Mass/volume] in Ser um or PlasmaOrdered By: Deisy Villar on 01-07-2024 Glucose [Mass/Vol] 84 mg/dL Normal 70-100 [facility] Comment on above: ADA recommended refe rence rangeRandom Glucose Reference Range is dependent on time and content of last meal. Glucose of more than 200 mg/dL in a nonstressed, ambulatory subject supports the diagnosis of Diabetes Mellitus. Result Comment: Fannin om Glucose Reference Range is dependent on time and content of last meal. Glucose of more than 200 mg/dL in a nonstressed, ambulatory subject supports the diagnosis of Diabetes Mellitus. ADA recommended reference range Performed By: #### D DANIELLEAS, LC T4, [id number], SEROTON, TEST F + T, T3R, THYGLOB AB, ESTRADIOL, TPO, SHBG, ESTRONE, INSULIN, PROG #### [facility] , #### T4F, TRISTEN, TSH3, A1C WTH eA, FILIBERTO, GLU, T3F #### [facility] [address] Glucose mean value [Mass/vol ume] in Blood Estimated from glycated hemoglobinOrdered By: Deisy Villar on 01-07-2024 Average glucose Estimated from glycated hemoglobin (Bld) [Mass/Vol] 105 mg/dL [facility] Hemoglobin A1c percentageOrd ered By: Deisy Villar on 01-07-2024 HbA1c (Bld) [Mass fraction] 5.3 % Normal 4.3-5.6 [facility] Comment on above: Increased risk for d iabetes: 5.7 - 6.4diabetes: >6.4glycemic control for adults with diabetes: <7.0 Result Comment: Incr eased risk for diabetes: 5.7 - 6.4 diabetes: >6.4 glycemic control for adults with diabetes: <7.0 Performed By: #### D HEAS, LC T4, [id number], SEROTON, TEST F + T, T3R, THYGLOB AB, ESTRADIOL, TPO, SHBG, ESTRONE, INSULIN, PROG #### [facility] , #### T4F, TRISTEN, TSH3, A1C WTH eA, FILIBERTO, GLU, T3F #### [facility] [address] [place] [address] [place] Insulinon 01-07-2024 Insulin 4.5 u[iU]/mL Normal 2.6-24.9 [facility] Comment on above: Result Comment: Perf ormed at: [facility] [id number] Gas Operations Analyst: Baudilio Leyva PhD, Phone: [phone] Performed By: #### D HEAS, LC T4, [id number], SEROTON, TEST F + T, T3R, THYGLOB AB, ESTRADIOL, TPO, SHBG, ESTRONE, INSULIN, PROG #### [facility] , #### T4F, TRISTEN, TSH3, A1C WTH eA, FILIBERTO, GLU, T3F #### [address] [facility] Thyroxine (T4)on T4 [Mass/Vol] 8.2 ug/dL Normal 4.5-12.0 [facility] Comment on above: Performed By: #### D HEAS, LC T4, [id number], SEROTON, TEST F + T, T3R, THYGLOB AB, ESTRADIOL, TPO, SHBG, ESTRONE, INSULIN, PROG #### [facility] , #### T4F, TRISTEN, TSH3, A1C WTH eA, FILIBERTO, GLU, T3F #### [address] No Panel InformationOrdered By: Deisy Villar on 01-07-2024 Free Thyroxine (T4) Direct 8.2 ug/dL 4.5-12.0 [facility] Reverse Triiodothyronine (T3) 18.9 ng/dL 9.2-24.1 [facility] Comment on above: This test was devsairao huey and its performance characteristicsdetermined by [employer]. It has not been cleared orapproved by the Food and Drug Administration.Performed at: [address] [id number] Director: Quinton Wolf MD, Phone: [phone] Sex Hormone Binding Globulin 95.4 nmol/L 24.6-122.0 [facility] Comment on above: Performed at: CB - [facility] [id number] [place], [place] [id number] Director: Baudilio Leyva PhD, Phone: [phone] Plasma serotonin measurement (mass/volume)Ordered By: Deisy Villar on 01-07-2024 Serotonin (P) [Mass/Vol] 71 ng/mL [facility] Comment on above: This test was develo ped and its performance characteristicsdetermined by [facility]. It has not been cleared orapproved by the Food and Drug Administration.Performed at: [address] [id number] Director: Quinton Wolf MD, Phone: [phone] Progesteroneon 01-07-2024 Progesterone 0.2 ng/mL Normal . [facility] Comment on above: Result Comment: Foll icular phase 0.1 - 0.9 Luteal phase 1.8 - 23.9 Ovulation phase 0.1 - 12.0 First trimester 11.0 - 44.3 Second trimester 25.4 - 83.3 Third trimester 58.7 - 214.0 Postmenopausal 0.0 - 0.1 Performed By: #### D HEAS, LC T4, [id number], SEROTON, TEST F + T, T3R, THYGLOB AB, ESTRADIOL, TPO, SHBG, ESTRONE, INSULIN, PROG #### [facility] , #### T4F, TRISTEN, TSH3, A1C WTH eA, FILIBERTO, GLU, T3F #### [facility] [address] Random cortisol measurementO rdered By: Deisy Villar on 01-07-2024 Cortisol [Mass/Vol] 6.8 ug/dL [facility] Comment on above: [facility] 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 It has not been cleared or approved by the Food and Drug Administration. Performed at: [facility] [id number] Gas Operations Analyst: Quinton Wolf MD, Phone: [phone] PERFORMED BY: [facility] [address] [place] [address] PATHOLOGIST PICKING TECH JOSE GOEL M.D. Performed By: #### D HEAS, LC T4, [id number], SEROTON, TEST F + T, T3R, THYGLOB AB, ESTRADIOL, TPO, SHBG, ESTRONE, INSULIN, PROG #### [facility] , #### T4F, TRISTEN, TSH3, A1C WTH eA, FILIBERTO, GLU, T3F #### [facility] [address] Serum estrone measurementOrd ered By: Deiys Villar on 01-07-2024 E1 [Mass/Vol] 46 pg/mL 27-231 [facility] Comment on above: Range Adult (Premeno pausal) 27 - 231 Menstrual Cycle (1-10 days) 19 - 149 Menstrual Cycle (11-20 days) 32 - 176 Menstrual Cycle (21-30 days) 37 - 200Performed at: [facility] - [facility] [address] [id number] Director: Quinton Wolf MD, Phone: [phone] Serum or plasma calcitriol m easurement (mass/volume)Ordered By: Deisy Villar on 01-07-2024 1,25-dihydroxyvitamin D3 [Mass/Vol] 56.6 pg/mL 24.8-81.5 [facility] Comment on above: Performed at: BN - [facility] [address] [id number] Director: Quinton Wolf MD, Phone: [phone] Serum or plasma estradiol (E 2) measurement (mass/volume)Ordered By: Deisy Villar on 01-07-2024 E2 [Mass/Vol] 300.0 pg/mL . [facility] Comment on above: Adult Female Range F ollicular phase 12.5 - 166.0 Ovulation phase 85.8 - 498.0 Luteal phase 43.8 - 211.0 Postmenopausal <6.0 - 54.7 1st trimester 215.0 - >4300.0Roche ECLIA methodology Serum or plasma insulin kevin urement (units/volume)Ordered By: Deisy Villar on 01-07-2024 Insulin Qn 4.5 u[iU]/mL 2.6-24.9 [facility] Comment on above: Performed at: [facility] [address] [id number] Director: Baudilio Leyva PhD, Phone: [phone] Serum or plasma progesterone measurement (mass/volume)Ordered By: Deisy Villar on 01-07-2024 Progesterone [Mass/Vol] 0.2 ng/mL . F [facility] Comment on above: Follicular phase 0.1 - 0.9 Luteal phase 1.8 - 23.9 Ovulation phase 0.1 - 12.0 First trimester 11.0 - 44.3 Second trimester 25.4 - 83.3 Third trimester 58.7 - 214.0 Postmenopausal 0.0 - 0.1 Serum or plasma thyroglobuli n antibody assay (units/volume)Ordered By: Deisy Villar on 01-07-2024 Thyroglobulin Ab Qn [IU]/mL 0.0-0.9 [facility] Comment on above: Thyroglobulin Antibo dy measured by WinBuyerMethodologyPerformed at: [facility] [id number] [place], [place] [id number] Director: Baudilio Leyva PhD, Phone: [phone] Serum or plasma thyroperoxid ase antibody assay (units/volume)Ordered By: Deisy Villar on 01-07-2024 TPO Ab Qn [IU]/mL 0-34 [facility] Comment on above: Performed at: [facility] [address] [place] [id number] Director: Baudilio Leyva PhD, Phone: [phone] Sex Hormone Binding Globulin on 01-07-2024 Sex Hormone Binding Globulin 95.4 Normal 24.6-122.0 [facility] Comment on above: Result Comment: Perf ormed at: [facility] [address] [id number] Gas Operations Analyst: Baudilio Leyva PhD, Phone: [phone] Performed By: #### D VENITA, LC T4, [id number], SEROTON, TEST F + T, T3R, THYGLOB AB, ESTRADIOL, TPO, SHBG, ESTRONE, INSULIN, PROG #### [facility] , #### T4F, TRISTEN, TSH3, A1C WTH eA, FILIBERTO, GLU, T3F #### [facility] [address] Testosterone Free and TotalO rdered By: Deisy Villar on 01-07-2024 Testosterone [Mass/Vol] 16 ng/dL Normal 8-60 F [facility] Comment on above: Performed By: #### D VENITA, LC T4, [id number], SEROTON, TEST F + T, T3R, THYGLOB AB, ESTRADIOL, TPO, SHBG, ESTRONE, INSULIN, PROG #### [facility] , #### T4F, TRISTEN, TSH3, A1C WTH eA, FILIBERTO, GLU, T3F #### [place] [address] [place] Testosterone Free and Totalo n 01-07-2024 Testosterone,Free 0.3 pg/mL Normal 0.0-4.2 [facility] Comment on above: Result Comment: Perf ormed at: [facility] [id number] Gas Operations Analyst: Baudilio Leyva PhD, Phone: [phone] Performed at: [facility] [id number] Gas Operations Analyst: Quinton Wolf MD, Phone: [phone] Performed By: #### D VENITA, LC T4, [id number], SEROTON, TEST F + T, T3R, THYGLOB AB, ESTRADIOL, TPO, SHBG, ESTRONE, INSULIN, PROG #### [facility] , #### T4F, TRISTEN, TSH3, A1C WTH eA, FILIBERTO, GLU, T3F #### [address] Thyroid Peroxidase Antibodie son 01-07-2024 Thyroid Peroxidase Antibodies <9 Normal 0-34 [facility] Comment on above: Result Comment: Perf ormed at: - [facility] [address] [id number] Gas Operations Analyst: Baudilio Leyva PhD, Phone: [phone] Performed By: #### D HEAS, LC T4, [id number], SEROTON, TEST F + T, T3R, THYGLOB AB, ESTRADIOL, TPO, SHBG, ESTRONE, INSULIN, PROG #### [facility] , #### T4F, TRISTEN, TSH3, A1C WTH eA, FILIBERTO, GLU, T3F #### [address] Thyrotropin [Units/volume] i n Serum or PlasmaOrdered By: Deisy Villar on 01-07-2024 TSH Qn 1.80 m[IU]/L Normal 0.45-5.33 [facility] Comment on above: Performed By: #### D HEAS, LC T4, [id number], SEROTON, TEST F + T, T3R, THYGLOB AB, ESTRADIOL, TPO, SHBG, ESTRONE, INSULIN, PROG #### [facility] , #### T4F, TRISTEN, TSH3, A1C WTH eA, FILIBERTO, GLU, T3F #### [facility] [address] [place] [address] Thyroxine (T4) free [Mass/vo lume] in Serum or PlasmaOrdered By: Deisy Villar on 01-07-2024 Free T4 [Mass/Vol] 0.88 ng/dL Normal 0.61-1.12 [facility] Comment on above: Performed By: #### D HEAS, LC T4, [id number], SEROTON, TEST F + T, T3R, THYGLOB AB, ESTRADIOL, TPO, SHBG, ESTRONE, INSULIN, PROG #### [facility] , #### T4F, TRISTEN, TSH3, A1C WTH eA, FILIBERTO, GLU, T3F #### [facility] [address] [place] [address] Triiodothyronine (T3) Freeon 01-07-2024 Triiodothyronine (T3) Free 3.90 pg/mL Normal 2.50-3.90 [facility] Comment on above: Result Comment: PERF ORMED BY: [address] [place] [address] PATHOLOGIST PICKING TECH JOSE GOEL M.D. Performed By: #### D VENITA, LC T4, [id number], SEROTON, TEST F + T, T3R, THYGLOB AB, ESTRADIOL, TPO, SHBG, ESTRONE, INSULIN, PROG #### [facility] , #### T4F, TRISTEN, TSH3, A1C WTH eA, FILIBERTO, GLU, T3F #### [facility] [address] [place] [address] Triiodothyronine (T3) Free [ Mass/volume] in Serum or PlasmaOrdered By: Deisy Villar on 01-07-2024 Free T3 [Mass/Vol] 3.90 pg/mL 2.50-3.90 [facility] Triiodothyronine (T3) Revers lonnie 01-07-2024 Triiodothyronine (T3) Reverse 18.9 ng/dL Normal 9.2-24.1 [facility] Comment on above: Result Comment: This test was developed and its performance characteristics determined by [facility]. It has not been cleared or approved by the Food and Drug Administration. Performed at: [address] [id number] Gas Operations Analyst: Quinton Wolf MD, Phone: [phone] Performed By: #### D VENITA, LC T4, [id number], SEROTON, TEST F + T, T3R, THYGLOB AB, ESTRADIOL, TPO, SHBG, ESTRONE, INSULIN, PROG #### [facility] , #### T4F, TRISTEN, TSH3, A1C WTH eA, FILIBERTO, GLU, T3F #### [facility] [address] Alanine aminotransferase [En zymatic activity/volume] in Serum or PlasmaOrdered By: Delano Francis on 09-17-2023 ALT [Catalytic activity/Vol] 20 U/L 7-52 [facility] Albumin [Mass/volume] in Ser um or Plasma by Bromocresol green (BCG) dye binding methoOrdered By: Delano Francis on 09-17-2023 Albumin BCG dye [Mass/Vol] 4.3 g/dL 3.5-5.7 [facility] Alkaline phosphatase [Enzyma tic activity/volume] in Serum or PlasmaOrdered By: Delano Francis on 09-17-2023 ALP [Catalytic activity/Vol] 62 U/L 34-104 [facility] Aspartate aminotransferase [ Enzymatic activity/volume] in Serum or PlasmaOrdered By: Delano Francis on 09-17-2023 AST [Catalytic activity/Vol] 22 U/L 13-39 [facility] Basophils Auto (Bld) [#/Vol] Ordered By: Delano Francis on 09-17-2023 Basophils (Bld) [#/Vol] 0.0 10*3/uL 0.0-0.2 [facility] Basophils/100 WBC Auto (Bld) Ordered By: Delano Francis on 09-17-2023 Basophils/100 WBC (Bld) 0.4 % . F [facility] Bilirubin.total [Mass/volume ] in Serum or PlasmaOrdered By: Delano Francis on 09-17-2023 Bilirubin [Mass/Vol] 0.7 mg/dL 0.3-1.0 [facility] Calcium [Mass/volume] in Ser um or PlasmaOrdered By: Delano Francis on 09-17-2023 Calcium [Mass/Vol] 9.4 mg/dL 8.6-10.3 [facility] Carbon dioxide, total [Moles /volume] in Serum or PlasmaOrdered By: Delano Francis on 09-17-2023 CO2 [Moles/Vol] 26.2 mmol/L 21.0-31.0 [facility] Chloride [Moles/volume] in S stevo or PlasmaOrdered By: Delano Francis on 09-17-2023 Chloride [Moles/Vol] 102 mmol/L 98-107 [facility] Cholesterol [Mass/volume] in Serum or PlasmaOrdered By: Delano Francis on 09-17-2023 Cholesterol [Mass/Vol] 214 mg/dL 140-200 [facility] Comment on above: Chol less than 200 m g/dl low riskChol 201-239 mg/dl borderline riskChol 240 mg/dl and greater high risk Cholesterol in LDL Calc [Mas s/Vol]Ordered By: Delano Francis on 09-17-2023 Cholesterol in LDL [Mass/Vol] 161 mg/dL 0-100 [facility] Comment on above: LDL ATP III CLASSIFI CATIONLDL less than 100 mg/dL OptimalLDL 100-129 mg/dL Near or above optimalLDL 130-159 mg/dL Borderline highLDL 160-189 mg/dL HighLDL greater than 189 mg/dL Very high Cholesterol in VLDL Calc [Ma ss/Vol]Ordered By: Delano Francis on 09-17-2023 Cholesterol in VLDL [Mass/Vol] 9 mg/dL [facility] Creatinine [Mass/volume] in Serum or PlasmaOrdered By: Delano Francis on 09-17-2023 Creatinine [Mass/Vol] 0.79 mg/dL 0.60-1.20 [facility] Eosinophils Auto (Bld) [#/Vo l]Ordered By: Delano Francis on 09-17-2023 Eosinophils (Bld) [#/Vol] 0.1 10*3/uL 0.0-0.45 [facility] Eosinophils/100 WBC Auto (Bl d)Ordered By: Delano Francis on 09-17-2023 Eosinophils/100 WBC (Bld) 0.9 % . [facility] Erythrocyte distribution wid th Auto (RBC) [Ratio]Ordered By: Delano Francis on 09-17-2023 Erythrocyte distribution width (RBC) [Ratio] 12.4 % 11.9-15.3 [facility] Globulin Calc (S) [Mass/Vol] Ordered By: Delano Francis on 09-17-2023 Globulin (S) [Mass/Vol] 2.5 g/dL [facility] Glucose [Mass/volume] in Ser um or PlasmaOrdered By: Delano Francis on 09-17-2023 Glucose [Mass/Vol] 75 mg/dL 70-100 [facility] Hematocrit Auto (Bld) [Volum e fraction]Ordered By: Delano Francis on 09-17-2023 Hematocrit (Bld) [Volume fraction] 34.2 % 34.0-46.4 [facility] Hemoglobin [Mass/volume] in BloodOrdered By: Delano Francis on 09-17-2023 Hemoglobin (Bld) [Mass/Vol] 11.8 g/dL 11.8-15.4 [facility] Leukocytes [#/volume] correc calvin for nucleated erythrocytes in Blood by Automated counOrdered By: Delano Francis on 09-17-2023 WBC corrected for nucl RBC Auto (Bld) [#/Vol] 5.9 10*3/uL 3.8-11.6 [facility] Lymphocytes Auto (Bld) [#/Vo l]Ordered By: Delano Francis on 09-17-2023 Lymphocytes (Bld) [#/Vol] 1.8 10*3/uL 1.00-4.8 [facility] Lymphocytes/100 WBC Auto (Bl d)Ordered By: Delano Francis on 09-17-2023 Lymphocytes/100 WBC (Bld) 30.5 % . [facility] MCH Auto (RBC) [Entitic mass ]Ordered By: Delano Francis on 09-17-2023 MCH (RBC) [Entitic mass] 31.8 pg 24.7-34.3 [facility] MCHC Auto (RBC) [Mass/Vol]Or dered By: Delano Francis on 09-17-2023 MCHC (RBC) [Mass/Vol] 34.4 g/dL 32.0-35.0 [facility] MCV Auto (RBC) [Entitic vol] Ordered By: Delano Francis on 09-17-2023 MCV (RBC) [Entitic vol] 92.5 fL 80-100 [facility] Monocytes Auto (Bld) [#/Vol] Ordered By: Delano Francis on 09-17-2023 Monocytes (Bld) [#/Vol] 0.5 10*3/uL 0.0-0.8 [facility] Monocytes/100 WBC Auto (Bld) Ordered By: Delano Francis on 09-17-2023 Monocytes/100 WBC (Bld) 9.2 % . F [facility] Neutrophils Auto (Bld) [#/Vo l]Ordered By: Delano Francis on 09-17-2023 Neutrophils (Bld) [#/Vol] 3.5 10*3/uL 1.8-7.7 [facility] Neutrophils/100 WBC Auto (Bl d)Ordered By: Delano Francis on 09-17-2023 Neutrophils/100 WBC (Bld) 59.0 % . [facility] No Panel InformationOrdered By: Delano Francis on 09-17-2023 Estimated GFR (CKD-EPI) > 60.0 mL/Min [facility] Creatinine Clearance (Chem N/A [facility] Nucleated erythrocytes [Pres ence] in Blood by Automated countOrdered By: Delano Francis on 09-17-2023 Nucleated RBC Auto Ql (Bld) 0.2 /100{WBC} 0-0.5 [facility] Platelet mean volume Auto (B ld) [Entitic vol]Ordered By: Delano Francis on 09-17-2023 Platelet mean volume (Bld) [Entitic vol] 8.1 fL 6.3-10.7 [facility] Platelets Auto (Bld) [#/Vol] Ordered By: Delano Francis on 09-17-2023 Platelets (Bld) [#/Vol] 250 10*3/uL 150-450 [facility] Potassium [Moles/volume] in Serum or PlasmaOrdered By: Delano Francis on 09-17-2023 Potassium [Moles/Vol] 4.0 mmol/L 3.5-5.1 [facility] Protein [Mass/volume] in Ser um or PlasmaOrdered By: Delano Francis on 09-17-2023 Protein [Mass/Vol] 6.8 g/dL 6.4-8.9 [facility] RBC Auto (Bld) [#/Vol]Ordere d By: Delano Francis on 09-17-2023 RBC (Bld) [#/Vol] 3.70 10*6/uL 3.60-5.00 [facility] Serum or plasma albumin/glob ulin mass ratioOrdered By: Delano Francis on 09-17-2023 Albumin/Globulin [Mass ratio] 1.7 {ratio} [facility] Serum or plasma anion gap de terminationOrdered By: Delano Francis on 09-17-2023 Anion gap [Moles/Vol] 10.8 mmol/L 6.0-15.0 [facility] Serum or plasma high density lipoprotein (HDL) cholesterol measurementOrdered By: Delano Francis on 09-17-2023 Cholesterol in HDL [Mass/Vol] 43 mg/dL 23- [facility] Comment on above: HDL CHOL ATP-III CLA SSIFICATION Cardiovascular RiskHDL > or equal to 60 mg/dL LOWHDL < 40 mg/dL HIGH Serum or plasma total choles terol/high density lipoprotein (HDL) cholesterol mass ratOrdered By: Delano Francis on 09-17-2023 Cholesterol.total/Alivia sterol in HDL [Mass ratio] 5.0 {ratio} <5.0 [facility] Sodium [Moles/volume] in Ser um or PlasmaOrdered By: Delano Francis on 09-17-2023 Sodium [Moles/Vol] 135 mmol/L 136-145 [facility] Thyrotropin [Units/volume] i n Serum or PlasmaOrdered By: Delano Francis on 09-17-2023 TSH Qn 1.04 m[IU]/L 0.45-5.33 [facility] Triglyceride [Mass/volume] i n Serum or PlasmaOrdered By: Delano Francis on 09-17-2023 Triglyceride [Mass/Vol] 48 mg/dL 0-149 [facility] Comment on above: TRIG ATP III CLASSIF ICATIONTRIG less than 150 mg/dL NormalTRIG 150-199 mg/dL Borderline highTRIG 200-500 mg/dL High TRIG greater than 500 mg/dL Very highStandard traceable to the Center for Disease Conrtrol and Prevention (CDC) test method. Urea nitrogen [Mass/volume] in Serum or PlasmaOrdered By: Delano Francis on 09-17-2023 Urea nitrogen [Mass/Vol] 7 mg/dL 7- [facility] WBC Auto (Bld) [#/Vol]Ordere d By: Delano Francis on 09-17-2023 WBC (Bld) [#/Vol] 5.9 10*3/uL 3.8-11.6 [facility] Mononucleosis Test, Qualon 1 Heterophile Ab LA Ql (S) Negative [employer] Other Quick Strepon 09-26-2022 S. pyogenes Org specific cx Ql (Throat) Negative [facility] [employer] Other Quick Strep [employer] Other SARS-CoV-2 (COVID-19) RNA NA A+probe Ql (Resp)on 09-26-2022 SARS-CoV-2 (COVID-19) RNA ROB+probe Ql (Unsp spec) Negative [employer] Other PAP ACOG PANEL 2: 30 to 65on 09-01-2022 . . Normal [facility] Comment on above: Result Comment: Perf ormed at: WB Performed By: #### [id number] #### [facility] [address] [address] [address] Zonia Zhang Age Gdln ACOG Testing 30-65 Normal [facility] Comment on above: Performed By: #### [id number] #### [facility] [address] [address] [address] Zonia Zhang DIAGNOSIS: Comment [facility] Comment on above: Result Comment: NEGA TIVE FOR INTRAEPITHELIAL LESION OR MALIGNANCY. Performed at: WB Performed By: #### [id number] #### [facility] [address] [address] [address] Zonia Zhang HPV Aptima Negative Normal Negative [facility] Comment on above: Result Comment: This nucleic acid amplification test detects fourteen high-risk HPV types (16,18,31,33,35,39,45,51,52,56,58,59,66,68) without differentiation. Performed at: =G Performed By: #### [id number] #### [facility] [address] [address] [address] Zonia Zhang Methodology: Comment Normal [facility] Comment on above: Result Comment: This liquid based ThinPrep(R) pap test was screened with the use of an image guided system. Performed at: WB Performed By: #### [id number] #### [facility] [address] [place] [address] Dr. Zonia Zhang Note: Comment [facility] Comment on above: Result Comment: The Pap smear is a screening test designed to aid in the detection of premalignant and malignant conditions of the uterine cervix. It is not a diagnostic procedure and should not be used as the sole means of detecting cervical cancer. Both false-positive and false-negative reports do occur. . Performed at: WB Performed By: #### [id number] #### [facility] [address] [place] [address] Dr. Zonia Zhang Performed by: Comment Normal [facility] Comment on above: Result Comment: Negin Tomas, Cellar Supervisor (ASCP) Performed at: WB Performed By: #### [id number] #### [facility] [address] [place] [address] Dr. Zonia Zhang Specimen adequacy: Comment Normal [facility] Comment on above: Result Comment: Sati sfactory for evaluation. Endocervical and/or squamous metaplastic cells (endocervical component) are present. Performed at: WB Performed By: #### [id number] #### [facility] [address] [place] [address] Dr. Zonia Zhang Basophils Auto (Bld) [#/Vol] Ordered By: Delano Francis on 08-07-2022 Basophils (Bld) [#/Vol] 0.0 10*3/uL 0.0-0.2 [facility] Basophils/100 WBC Auto (Bld) Ordered By: Delano Francis on 08-07-2022 Basophils/100 WBC (Bld) 0.5 % . F [facility] Blood hemoglobin measurement (mass/volume)Ordered By: Delano Francis on 08-07-2022 Hemoglobin (Bld) [Mass/Vol] 12.7 g/dL 11.8-15.4 [facility] Blood leukocytes automated c ount (number/volume)Ordered By: Delano Francis on 08-07-2022 WBC (Bld) [#/Vol] 5.0 10*3/uL 4.5-11.0 [facility] Body fluid albumin measureme nt (mass/volume)Ordered By: Delano Francis on 08-07-2022 Albumin (Body fld) [Mass/Vol] 4.1 g/dL 3.2-5.5 [facility] Cholesterol [Mass/volume] in Serum or PlasmaOrdered By: Delano Francis on 08-07-2022 Cholesterol [Mass/Vol] 253 mg/dL 140-200 [facility] Comment on above: Chol less than 200 m g/dl low risk Chol 201-239 mg/dl borderline risk Chol 240 mg/dl and greater high risk Chol less than 200 m g/dl low riskChol 201-239 mg/dl borderline riskChol 240 mg/dl and greater high risk Cholesterol in LDL Calc [Mas s/Vol]Ordered By: Delano Francis on 08-07-2022 Cholesterol in LDL [Mass/Vol] 181 mg/dL 0-100 [facility] Comment on above: LDL ATP III [...] 08-07-2022 Cholesterol in VLDL [Mass/Vol] 12 mg/dL [facility] Creatinine and Glomerular fi ltration rate.predicted panel (S/P/Bld)Ordered By: Delano Francis on 08-07-2022 Creatinine [Mass/Vol] 0.76 mg/dL 0.44-1.03 [facility] Eosinophils Auto (Bld) [#/Vo l]Ordered By: Delano Francis on 08-07-2022 Eosinophils (Bld) [#/Vol] 0.1 10*3/uL 0.0-0.45 [facility] Eosinophils/100 WBC Auto (Bl d)Ordered By: Delano Francis on 08-07-2022 Eosinophils/100 WBC (Bld) 1.6 % . [facility] Erythrocyte distribution wid th Auto (RBC) [Ratio]Ordered By: Delano Francis on 08-07-2022 Erythrocyte distribution width (RBC) [Ratio] 12.6 % 11.9-15.3 [facility] Estimated glomerular filtrat ion rate (GFR) non- AmericanOrdered By: Delano Francis on 08-07-2022 GFR/1.73 sq M.predicted among non-blacks MDRD (S/P/Bld) [Vol rate/Area] > 60 mL/Min [facility] Globulin Calc (S) [Mass/Vol] Ordered By: Delano Francis on 08-07-2022 Globulin (S) [Mass/Vol] 2.3 g/dL F [facility] Hematocrit Auto (Bld) [Volum e fraction]Ordered By: Delano Francis on 08-07-2022 Hematocrit (Bld) [Volume fraction] 37.5 % 34.0-46.4 [facility] Laboratory - Chemistry and C hemistry - challengeOrdered By: Delano Francis on 08-07-2022 Glucose [Mass/Vol] 88 mg/dL 70-100 [facility] - Hematology and Cell countsOrdered By: Delano Francis on 08-07-2022 Nucleated RBC/100 WBC (Bld) [Ratio] 0.1 % 0-0.5 [facility] Lymphocytes Auto (Bld) [#/Vo l]Ordered By: Delano Francis on 08-07-2022 Lymphocytes (Bld) [#/Vol] 1.4 10*3/uL 1.00-4.8 [facility] Lymphocytes/100 WBC Auto (Bl d)Ordered By: Delano Francis on 08-07-2022 Lymphocytes/100 WBC (Bld) 28.1 % . [facility] MCH Auto (RBC) [Entitic mass ]Ordered By: Delano Francis on 08-07-2022 MCH (RBC) [Entitic mass] 31.8 pg 24.7-34.3 [facility] MCHC Auto (RBC) [Mass/Vol]Or dered By: Delano Francis on 08-07-2022 MCHC (RBC) [Mass/Vol] 33.8 g/dL 32.0-35.0 [facility] MCV Auto (RBC) [Entitic vol] Ordered By: Delano Francis on 08-07-2022 MCV (RBC) [Entitic vol] 94.3 fL 80-100 [facility] Monocyte %Ordered By: Delano Francis on 08-07-2022 Monocyte % 60 mg/dL 35-149 [facility] Comment on above: TRIG ATP III [...] 08-07-2022 Monocytes (Bld) [#/Vol] 0.5 10*3/uL 0.0-0.8 [facility] Monocytes/100 WBC Auto (Bld) Ordered By: Delano Francis on 08-07-2022 Monocytes/100 WBC (Bld) 10.1 % . F [facility] Neutrophils Auto (Bld) [#/Vo l]Ordered By: Delano Francis on 08-07-2022 Neutrophils (Bld) [#/Vol] 3.0 10*3/uL 1.8-7.7 [facility] Neutrophils/100 WBC Auto (Bl d)Ordered By: Delano Francis on 08-07-2022 Neutrophils/100 WBC (Bld) 59.7 % . [facility] No Panel InformationOrdered By: Dleano Francis on 08-07-2022 Estimated GFR () > 60 mL/Min [facility] Comment on above: GFR estimated refere nce range: According to KDOQI guidelines, <60 ml/min/1.73m2 is sufficient to diagnose a patient with chronic kidney disease. Nicotine Metabolite Negative Cutoff=25 [facility] Comment on above: Performed at: [address] [id number] Director: Quinton Wolf MD, Phone: [phone] Pharmacy Creatinine Clearance (Chem N/A [facility] Platelet mean volume Auto (B ld) [Entitic vol]Ordered By: Delano Francis on 08-07-2022 Platelet mean volume (Bld) [Entitic vol] 7.8 fL 6.3-10.7 [facility] Platelets Auto (Bld) [#/Vol] Ordered By: Delano Francis on 08-07-2022 Platelets (Bld) [#/Vol] 275 10*3/uL 150-450 [facility] Protein [Mass/volume] in Ser um or PlasmaOrdered By: Delano Francis on 08-07-2022 Protein [Mass/Vol] 6.4 g/dL 6.1-7.9 [facility] RBC Auto (Bld) [#/Vol]Ordere d By: Delano Francis on 08-07-2022 RBC (Bld) [#/Vol] 3.97 10*6/uL 3.60-5.00 [facility] Serum or plasma alanine troy otransferase measurement without P-5'-P (enzymatic activiOrdered By: Delano Francis on 08-07-2022 ALT No additional P-5'-P [Catalytic activity/Vol] 13 U/L 10-60 [facility] Serum or plasma albumin/glob ulin mass ratioOrdered By: Delano Francis on 08-07-2022 Albumin/Globulin [Mass ratio] 1.8 {ratio} [facility] Serum or plasma alkaline nova sphatase measurement (enzymatic activity/volume)Ordered By: Delano Francis on 08-07-2022 ALP [Catalytic activity/Vol] 52 U/L 32-92 [facility] Serum or plasma anion gap de terminationOrdered By: Delano Francis on 08-07-2022 Anion gap [Moles/Vol] 11.7 mmol/L 6.0-15.0 [facility] Serum or plasma aspartate am inotransferase measurement (enzymatic activity/volume)Ordered By: Delano Francis on 08-07-2022 AST [Catalytic activity/Vol] 15 U/L 10-42 [facility] Serum or plasma calcium kevin urement (mass/volume)Ordered By: Delano Francis on 08-07-2022 Calcium [Mass/Vol] 9.8 mg/dL 8.2-10.2 [facility] Serum or plasma chloride ra surement (moles/volume)Ordered By: Delano Francis on 08-07-2022 Chloride [Moles/Vol] 101 mmol/L 95-114 [facility] Serum or plasma high density lipoprotein (HDL) cholesterol measurementOrdered By: Delano Francis on 08-07-2022 Cholesterol in HDL [Mass/Vol] 60 mg/dL 35-85 [facility] Comment on above: HDL CHOL ATP-III CLA SSIFICATION Cardiovascular Risk HDL > or equal to 60 mg/dL LOW HDL < 40 mg/dL HIGH HDL CHOL ATP-III CLA SSIFICATION Cardiovascular RiskHDL > or equal to 60 mg/dL LOWHDL < 40 mg/dL HIGH Serum or plasma potassium me asurement (moles/volume)Ordered By: Delano Francis on 08-07-2022 Potassium [Moles/Vol] 4.4 mmol/L 3.5-5.1 [facility] Serum or plasma sodium measu rement (moles/volume)Ordered By: Delano Francis on 08-07-2022 Sodium [Moles/Vol] 136 mmol/L 136-146 [facility] Serum or plasma total biliru bin measurement (mass/volume)Ordered By: Delano Francis on 08-07-2022 Bilirubin [Mass/Vol] 1.0 mg/dL 0.3-1.2 [facility] Serum or plasma total carbon dioxide measurement (moles/volume)Ordered By: Delano Francis on 08-07-2022 CO2 [Moles/Vol] 27.7 mmol/L 22.0-30.0 [facility] Serum or plasma total choles terol/high density lipoprotein (HDL) cholesterol mass ratOrdered By: Delano Francis on 08-07-2022 Cholesterol.total/Alivia sterol in HDL [Mass ratio] 4.2 {ratio} <5.0 [facility] Serum or plasma urea nitroge n measurement (mass/volume)Ordered By: Delano Francis on 08-07-2022 Urea nitrogen [Mass/Vol] 9 mg/dL 08-22 [facility] TSH DL <= 0.005 mIU/L QnOrde red By: Delano Francis on 08-07-2022 TSH Qn 1.43 m[IU]/L 0.45-5.33 [facility] T3, TOTAL (TRIIODOTHYRONINE) on 06-07-2022 T3, TOTAL 88 ng/dL Normal 71-180 [facility] Comment on above: Performed By: #### T 3TOTAL #### [facility] [address] [place] [address] Dr. Zonia Zhang FREE T4on 06-06-2022 Free T4 [Mass/Vol] 0.94 ng/dL Normal 0.76-1.46 [facility] Comment on above: Performed By: #### F T4 #### [facility] [address] [address] [address] Zonia Zhang TSHon 06-06-2022 TSH 1.364 uIU/mL Normal 0.358-3.74 0 [facility] Comment on above: Performed By: #### T SH #### [facility] [address] [place] [address] Dr. Zonia Zhang COVID Quick Testingon 2021 Result Positive [employer] Other Quick Fluon 12-27-2021 FLUAV Ab CF (S) [Titer] Negative N [employer] Other FLUBV Ab CF (S) [Titer] Negative N [employer] Other Vital Signs Date Time Vital Sign Value Performing Clinician Facility 05-01-2025 08:36-0400 Body mass index (BMI) [Ratio] 34.43 kg/m2 Deisy MUNOZ Work Phone: [facility] 05-01-2025 08:36-0400 Body weight 99.7 kg Deisy Villar PA Work Phone: [facility] 05-01-2025 08:36-0400 Diastolic blood pressure 74 mm[Hg] Deisy Adithya PA Work Phone: [facility] 05-01-2025 08:36-0400 Systolic blood pressure 118 mm[Hg] Deisy Adithya PA Work Phone: [facility] 03-30-2025 10:28-0400 Body mass index (BMI) [Ratio] 32.89 kg/m2 Ángel Sita DO Work Phone: [facility] 03-30-2025 10:28-0400 Body weight 95.25 kg Ángel Sita DO Work Phone: [facility] 03-30-2025 10:28-0400 Diastolic blood pressure 84 mm[Hg] Ángel Sita DO Work Phone: [facility] 03-30-2025 10:28-0400 Systolic blood pressure 120 mm[Hg] Ángel Sita DO Work Phone: [facility] 03-02-2025 09:58-0400 Body mass index (BMI) [Ratio] 31.76 kg/m2 Deisy Villar PA Work Phone: [facility] 03-02-2025 09:58-0400 Body weight 91.99 kg Deisy Villar PA Work Phone: [facility] 03-02-2025 09:58-0400 Diastolic blood pressure 72 mm[Hg] Deisy Adithya PA Work Phone: [facility] 03-02-2025 09:58-0400 Systolic blood pressure 120 mm[Hg] Deisy Adithya PA Work Phone: [facility] 02-02-2025 09:25-0500 Body mass index (BMI) [Ratio] 30.54 kg/m2 Ángel Sita DO Work Phone: [facility] 02-02-2025 09:25-0500 Body weight 88.45 kg Ángel Sita DO Work Phone: [facility] 02-02-2025 09:25-0500 Diastolic blood pressure 70 mm[Hg] Ángel Sita DO Work Phone: [facility] 02-02-2025 09:25-0500 Systolic blood pressure 120 mm[Hg] Ángel Sita DO Work Phone: [facility] 10-18-2024 11:19-0500 Body height 170.18 cm Robles Ball DO Work Phone: [facility] 10-18-2024 11:19-0500 Body mass index (BMI) [Ratio] 29.7 kg/m2 Robles Ball DO Work Phone: [facility] 10-18-2024 11:19-0500 Body weight 86.23 kg Robles Ball DO Work Phone: [facility] 10-18-2024 11:19-0500 Diastolic blood pressure 77 mm[Hg] Robles Ball DO Work Phone: [facility] 10-18-2024 11:19-0500 Heart rate 88 /min Robles Ball DO Work Phone: [facility] 10-18-2024 11:19-0500 Respiratory rate 12 /min Robles Ball DO Work Phone: [facility] 10-18-2024 11:19-0500 Systolic blood pressure 111 mm[Hg] Robles Ball DO Work Phone: [facility] 09-13-2024 14:28-0400 Body mass index (BMI) [Ratio] 28.79 kg/m2 Ángel Sita DO Work Phone: [facility] 09-13-2024 14:28-0400 Body weight 83.37 kg Ángel Sita DO Work Phone: [facility] 09-13-2024 14:28-0400 Diastolic blood pressure 70 mm[Hg] Ángel Sita DO Work Phone: [facility] 09-13-2024 14:28-0400 Systolic blood pressure 120 mm[Hg] Ángel Sita DO Work Phone: [facility] 05-03-2024 14:40-0400 Body height 170.18 cm [facility] 05-03-2024 14:40-0400 Body mass index (BMI) [Ratio] 28.3 kg/m2 [facility] 05-03-2024 14:40-0400 Body weight 82.1 kg [facility] 05-03-2024 14:40-0400 Diastolic blood pressure 82 mm[Hg] [facility] 05-03-2024 14:40-0400 Heart rate 78 /min [facility] 05-03-2024 14:40-0400 SaO2% (BldA) [Mass fraction] 98 % [facility] 05-03-2024 14:40-0400 Systolic blood pressure 122 mm[Hg] [facility] 01-06-2024 14:20-0500 Body height 170.2 cm Deisy Villar PA Work Phone: [facility] 01-06-2024 14:20-0500 Body mass index (BMI) [Ratio] 28.05 kg/m2 Deisy Adithya PA Work Phone: [facility] 01-06-2024 14:20-0500 Body weight 81.25 kg Deisy Bluefield PA Work Phone: [facility] 01-06-2024 14:20-0500 Diastolic blood pressure 70 mm[Hg] Deisy Bluefield PA Work Phone: [facility] 01-06-2024 14:20-0500 Systolic blood pressure 120 mm[Hg] Deisy Bluefield PA Work Phone: [facility] 10-02-2023 10:00-0400 Body height 170.18 cm Robles Ball Other [employer] [facility] [employer] Other 10-02-2023 10:00-0400 Body mass index (BMI) [Ratio] 29.38 kg/m2 Robles Ball Other [employer] [facility] [employer] Other 10-02-2023 10:00-0400 Body weight 85.1 kg Robles Ball Other [employer] Other 10-02-2023 10:00-0400 Diastolic blood pressure 83 mm[Hg] Robles Ball Other [employer] Other 10-02-2023 10:00-0400 Respiratory rate 12 /min Robles Ball Other [employer] Other 10-02-2023 10:00-0400 Systolic blood pressure 131 mm[Hg] Robles Ball Other [employer] Other 01-22-2023 10:30-0500 Body height 170.18 cm Robles Ball Other [employer] Other 01-22-2023 10:30-0500 Body mass index (BMI) [Ratio] 29.91 kg/m2 Robles Ball Other [employer] Other 01-22-2023 10:30-0500 Body weight 86.64 kg Robles Ball Other [employer] Other 01-22-2023 10:30-0500 Diastolic blood pressure 72 mm[Hg] Robles Ball Other [employer] Other 01-22-2023 10:30-0500 Respiratory rate 16 /min Robles Ball Other [employer] Other 01-22-2023 10:30-0500 Systolic blood pressure 122 mm[Hg] Robles Ball Other [employer] Other 09-26-2022 16:10-0400 Body height 170.18 cm Kiya Schaffer Other [employer] Other 09-26-2022 16:10-0400 Body mass index (BMI) [Ratio] 29.29 kg/m2 Kiya Schaffer Other [employer] Other 09-26-2022 16:10-0400 Body temperature 98.8 [degF] Kiya Schaffer Other [employer] Other 09-26-2022 16:10-0400 Body weight 84.82 kg Kiya Schaffer Other [employer] Other 09-26-2022 16:10-0400 Diastolic blood pressure 73 mm[Hg] Kiya Schaffer Other [employer] Other 09-26-2022 16:10-0400 Respiratory rate 18 /min Kiya Schaffer Other [employer] Other 09-26-2022 16:10-0400 SaO2% (BldA) [Mass fraction] 97 % Kiya Schaffer Other [employer] Other 09-26-2022 16:10-0400 Systolic blood pressure 125 mm[Hg] Kiya Schaffer Other [employer] Other 12-27-2021 10:15-0500 Body height 170.18 cm Elsi Mayer Other [employer] Other 12-27-2021 10:15-0500 Body mass index (BMI) [Ratio] 28.19 kg/m2 Elsi Mayer Other [employer] Other 12-27-2021 10:15-0500 Body temperature 100.3 [degF] Elsi Mayer Other [employer] Other 12-27-2021 10:15-0500 Body weight 81.65 kg Elsi Mayer Other [employer] Other 12-27-2021 10:15-0500 Respiratory rate 18 /min Elsi Mayer Other [employer] Other 12-27-2021 10:15-0500 SaO2% (BldA) [Mass fraction] 98 % Elsi Mayer Other [employer] Other Encounters Encounter Date Encounter Type Care Provider Facility Start: 05-11-2025 End: 05-11-2025 Clinisync Result Encounter Edson Dewitt NP Work Phone: [facility] External Department Unsolicited Start: 05-11-2025 End: 05-11-2025 Clinisync Result Encounter Edson Dewitt NP Work Phone: [facility] External Department Unsolicited Start: 05-01-2025 End: 05-01-2025 Bamboo flowsheet Deisy MUNOZ Work Phone: [facility] Start: 05-01-2025 End: 05-01-2025 Bamboo flowsheet Deisy MUNOZ Work Phone: [facility] Start: 05-01-2025 End: 05-01-2025 flow sheet Deisy MUNOZ Work Phone: [facility] Comment on above: size inconsist ent with dates (Primary Dx); Second trimester ; 25 weeks gestation of Start: 05-01-2025 End: 05-01-2025 ambulatory DEISY VILLAR Not Available Start: 04-18-2025 End: 04-18-2025 Clinisync Result Encounter Ángel Sita DO Work Phone: [facility] External Department Unsolicited Start: 04-18-2025 End: 04-18-2025 Clinisync Result Encounter Ángel Sita DO Work Phone: [facility] External Department Unsolicited Start: 04-18-2025 End: 04-18-2025 ambulatory ÁNGEL SITA Not Available Start: 03-30-2025 End: 03-30-2025 Bamboo flowsheet Ángel Sita DO Work Phone: [facility] Start: 03-30-2025 End: 03-30-2025 Bamboo flowsheet Ángel Sita DO Work Phone: [facility] Start: 03-30-2025 End: 03-30-2025 flow sheet Ángel Sita DO Work Phone: [facility] Comment on above: Second trimester [...] 03-02-2025 Bamboo flowsheet Deisy MUNOZ Work Phone: [facility] Start: 03-02-2025 End: 03-09-2025 Bamboo [...] preventive med est patient 18-39 yrs Deisy Villar PA Work Phone: [facility] Comment on above: 17 weeks gestation o f ; Second trimester ; Well woman exam with routine gynecological exam; Screening, , for anatomic survey; Exposure to STD; Vaginal discharge; Heartburn; Allergy, sequela Start: 03-02-2025 End: 03-02-2025 ambulatory DEISY VILLAR Not Available Start: 02-02-2025 End: 02-02-2025 Bamboo flowsheet Ángel Sita DO Work Phone: [facility] Start: 02-02-2025 End: 02-02-2025 Bamboo flowsheet Ángel Sita DO Work Phone: [facility] Start: 02-02-2025 End: 02-02-2025 flow sheet Ángel Sita DO Work Phone: [facility] Comment on above: 13 weeks gestation o f ; Second trimester Start: 02-02-2025 End: 02-02-2025 ambulatory ÁNGEL SITA Not Available Start: 01-13-2025 End: 01-13-2025 Clinisync Result Encounter Ángel Sita DO Work Phone: [facility] External Department Unsolicited Start: 01-13-2025 End: 01-13-2025 Clinisync Result Encounter Ángel Sita DO Work Phone: [facility] External Department Unsolicited Start: 01-05-2025 End: 01-05-2025 ambulatory ÁNGEL SITA Not Available Start: 12-12-2024 End: 12-12-2024 Clinisync Result Encounter Ángel Sita DO Work Phone: [facility] External Department Unsolicited Start: 12-12-2024 End: 12-12-2024 Clinisync Result Encounter Ángel Sita DO Work Phone: [facility] External Department Unsolicited Start: 12-10-2024 End: 12-10-2024 Clinisync Result Encounter Ángel Sita DO Work Phone: [facility] External Department Unsolicited Start: 12-10-2024 End: 12-10-2024 Clinisync Result Encounter Ángel Sita DO Work Phone: [facility] External Department Unsolicited Start: 10-18-2024 End: 10-18-2024 ambulatory Robles Ball DO Work Phone: [facility] Work Phone: Start: 10-18-2024 End: 10-18-2024 Encounter for general adult medical examination without abnormal findings Robles Ball DO Work Phone: [facility] Start: 10-18-2024 End: 10-18-2024 Patient encounter procedure Robles Ball DO Work Phone: [facility] Work Phone: Start: 10-16-2024 Patient encounter status Jermaine min Ball DO Work Phone: [facility] Start: 10-14-2024 Non-patient / Non-visit Benjam in Ball DO Work Phone: [facility] Work Phone: Start: 09-22-2024 End: 09-22-2024 Departed Referred DO Robles Charles Work Phone: [facility] Start: 09-22-2024 End: 09-22-2024 ambulatory DO Robles Ball Work Phone: [facility] Work Phone: Start: 09-13-2024 End: 09-13-2024 [...] Not Available Start: 08-29-2024 End: 08-29-2024 ambulatory [facility] Work Phone: Start: 08-29-2024 End: 08-29-2024 Patient encounter procedure [facility] Work Phone: Start: 05-03-2024 End: 05-03-2024 ambulatory [facility] Work Phone: Start: 05-03-2024 End: 05-03-2024 Patient encounter procedure [facility] Work Phone: Start: 2024 End: 2024 ambulatory DO Robles Ball Work Phone: [facility] Work Phone: Start: 2024 End: 2024 Patient encounter procedure DO Robles Ball Work Phone: [facility] Work Phone: Start: 01-07-2024 End: 01-07-2024 Patient encounter procedure DO Robles Ball Work Phone: [facility] [place] Work Phone: Start: 01-07-2024 End: 01-07-2024 ambulatory DO Robles Ball Work Phone: [facility] Work Phone: Start: 01-06-2024 End: 01-06-2024 Office outpatient visit 15 minutes Deisy MUNOZ Work Phone: [facility] Comment on above: Encounter for weight management; Hormone disorder; 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 Start: 10-02-2023 End: 10-02-2023 ambulatory Robles Charles Other [employer] Other Start: 10-02-2023 Encounter for genera l adult medical examination without abnormal findings Robles Charles [facility] Start: 10-02-2023 Periodic preventive med est patient 18-39 yrs Robles Charles [facility] Start: 09-17-2023 End: 09-17-2023 ambulatory MD Liz Conteh Work Phone: [facility] Work Phone: Start: 09-17-2023 End: 09-17-2023 Departed Referred MD Liz Conteh Work Phone: [facility]-Employee Benefit Screening Start: 01-22-2023 End: 01-22-2023 ambulatory Robles Charles Other [employer] Other Start: 01-22-2023 Office outpatient vi sit 15 minutes Robles Charles [facility] Start: 01-12-2023 End: 01-12-2023 ambulatory Robles Charles Other [employer] Other Start: 01-12-2023 Telephone encounter Robles Charles [facility] Start: 12-24-2022 End: 12-24-2022 ambulatory Robles Charles Other [employer] Other Start: 12-24-2022 Office outpatient vi sit 15 minutes Robles Charles [facility] Start: 09-30-2022 End: 09-30-2022 ambulatory Kiya Schaffer Other [employer] Other Start: 09-30-2022 Telephone encounter Kiya Schaffer [facility] Urgent Care [facility] Start: 09-26-2022 End: 09-26-2022 Departed Referred MD Liz Conteh Work Phone: [facility] [place] Start: 09-26-2022 End: 09-26-2022 ambulatory MD Liz Conteh Work Phone: [facility] Work Phone: Start: 09-26-2022 Office outpatient vi sit 15 minutes Kiya Schaffer [facility] Start: 09-25-2022 ([facility] C Vac) [facility] Co vid Vaccine [facility] Start: 09-25-2022 End: 09-25-2022 ambulatory MD Liz Conteh Work Phone: [facility] Work Phone: Start: 09-25-2022 End: 09-25-2022 Patient encounter procedure MD Liz Conteh Work Phone: [facility] Off Site Start: 08-25-2022 End: 08-25-[address] ÁNGEL BUCKNER Facility:[facility] Start: 08-07-2022 End: 08-07-2022 Departed Referred MD Liz Conteh Work Phone: [facility]-Employee Benefit Screening Start: 06-06-2022 End: 06-07-[address] ROBLES CHARLES Facility:[facility] Start: 01-01-2022 End: 01-01-2022 ambulatory Elsi Mayer Other [employer] Other Start: 01-01-2022 Office outpatient vi sit 5 minutes Elsiveronique Mayer [facility] Start: 12-27-2021 End: 12-27-2021 ambulatory Elsi Mayer Other [employer] Other Start: 12-27-2021 Office outpatient vi sit 15 minutes Elsi Leyla [facility] Start: 08-23-2021 ([facility] C Vac) [facility] Co vid Vaccine [facility] Procedures Date Procedure Procedure Detail Performing Clinician Start: 05-11-2025 US OB GROWTH Edson fu [employer] TECHNICIAN Work Phone: Start: 04-18-2025 ALL CBC WITH AUTO DIFF Ángel Sita DO Work Phone: Start: 04-18-2025 GLUCOSE 1 HOUR Ángel Fa zio DO Work Phone: Start: 03-30-2025 Urnls dip stick/tabl et rgnt [...] [Identifier] in Cervix by Cyto stain Ángel Buckner DO Work Phone: Start: 06-19-2020 Microscopic observat ion [Identifier] in Cervix by Cyto stain Deisy MUNOZ Work Phone: Plan of Treatment Date Care Activity Detail Author Start: 09-13-2029 Screening for malignant neoplasm of cervix [facility] Start: 03-02-2028 Screening for malignant neoplasm of cervix Pap Smear [facility] Start: 09-19-2025 End: 09-19-2025 Patient encounter procedure 09/19/2025 8:30 AM EDT Office Visit [facility] [address] [place] [address] Ángel Buckner, DO [address] [place] [address] [facility] Start: 07-31-2025 Influenza vaccination Influenza Vaccine (Season Ended) [facility] Start: 06-19-2025 Screening for malignant neoplasm of cervix [facility] Start: 05-30-2025 End: 05-30-2025 Patient encounter procedure 05/30/2025 8:50 AM EDT Routine [facility] [address] [place] [id number] Ángel Buckner, DO [address] [place] [address] [facility] Start: 05-01-2025 End: 08-31-2025 US for US OB follow up transabdominal approach Imaging Routine size inconsistent with dates Expected: 05/01/2025, Expires: 08/31/2025 [facility] Work Phone: Comment on above: Expected: 05/01/2025, Expires: Start: 05-01-2025 End: 05-01-2025 Patient encounter procedure [facility] Comment on above: Arrived Start: 04-18-2025 End: 04-18-2025 Professional / ancillary services management 04/18/2025 11:00 AM EDT Ancillary Procedure [facility] [address] [facility] [place] [address] [facility] Start: 04-03-2025 End: 04-03-2025 Patient encounter procedure 04/03/2025 9:50 AM EDT Routine [facility] [address] [facility] [place] [address] Ángel Buckner, DO [address] [facility] [place] [address] [facility] Start: 04-03-2025 End: 04-03-2025 Professional / ancillary services management 04/03/2025 8:00 AM EDT Ancillary Procedure [facility] [address] [place] [address] [facility] Start: 03-30-2025 End: 03-30-2026 CBC panel - Blood by Automated count CBC Lab Routine Second trimester Diabetes mellitus screening Expected: 03/30/2025 (Approximate), Expires: 03/30/2026 [facility] Work Phone: Comment on above: Expected: 03/30/2025 (Approximate), Expi res: 03/30/2026 Start: 03-30-2025 End: 03-30-2026 Measurement of glucose 1 hour after glucose challenge for glucose tolerance test Glucose tolerance, 1 hour Lab Routine Second trimester Diabetes mellitus screening Expected: 03/30/2025 (Approximate), Expires: 03/30/2026 [facility] Healthcare Comment on above: Expected: 03/30/2025 (Approximate), Expi res: 03/30/2026 Start: 03-30-2025 End: 06-30-2025 US for US OB limited 1+ fetuses Imaging Routine Encounter for follow-up ultrasound of anatomy Expected: 03/30/2025, Expires: 06/30/2025 [facility] Comment on above: Expected: 03/30/2025, Expires: [...] Routine [facility] [address] [place] [id number] Deisy Villar PA [address] [place] [address] Arrived [facility] Comment on above: Arrived Start: 02-02-2025 End: 02-02-2025 Patient encounter procedure [facility] Comment on above: Arrived Start: 01-05-2025 End: 01-05-2025 ambulatory 01/05/2025 1:30 PM EST Initial [facility] [address] [place] [address] [facility] Start: 01-05-2025 End: 01-05-2025 Professional / ancillary services management 01/05/2025 1:00 PM EST Ancillary Procedure [facility] [address] [place] [address] [facility] Start: 09-13-2024 End: 09-13-2024 Patient encounter procedure [facility] Comment on above: Arrived Start: 07-31-2024 Influenza vaccination Influenza Vaccine (#1) [facility] Start: 02-03-2024 End: 02-03-2024 Patient encounter procedure 02/03/2024 1:50 PM EST Office Visit [facility] [address] [place] [address] Deisy Villar PA [address] [facility] [address] [place] [address] [facility] Start: 01-07-2024 Dehydroepiandrosterone sulfate level [facility] Start: 01-07-2024 Sex hormone binding globulin measurement [facility] Start: 01-07-2024 T3 reverse measurement [facility] Start: 01-07-2024 Thyroxine measurement [facility] Start: 01-07-2024 [facility] Start: 01-06-2024 End: 01-06-2025 Anti-thyroglobulin antibody Anti-thyroglobulin antibody Lab Routine Hormone disorder Expected: 01/06/2024 (Approximate), Expires: 01/06/2025 [facility] Comment on above: Expected: 01/06/2024 (Approximate), Expi res: 01/06/2025 Start: 01-06-2024 End: 01-06-2025 C-peptide C-peptide Lab Routine Hormone disorder Expected: 01/06/2024 (Approximate), Expires: 01/06/2025 [facility] Comment on above: Expected: 01/06/2024 (Approximate), Expi res: 01/06/2025 Start: 01-06-2024 End: 01-06-2025 Cortisol free Cortisol, free Lab Routine Hormone disorder Expected: 01/06/2024 (Approximate), Expires: 01/06/2025 [facility] Comment on above: Expected: 01/06/2024 (Approximate), Expi res: 01/06/2025 Start: 01-06-2024 End: 01-06-2025 Glucose [Mass/volume] in Serum or Plasma Glucose, random Lab Routine Hormone disorder Expected: 01/06/2024 (Approximate), Expires: 01/06/2025 [facility] Comment on above: Expected: 01/06/2024 (Approximate), Expi res: 01/06/2025 Start: 01-06-2024 End: 01-06-2025 Insulin, total Insulin, total Lab Routine Hormone disorder Expected: 01/06/2024 (Approximate), Expires: 01/06/2025 [facility] Comment on above: Expected: 01/06/2024 (Approximate), Expi res: 01/06/2025 Start: 01-06-2024 End: 01-06-2025 Serotonin serum Serotonin serum Lab Routine Hormone disorder Expected: 01/06/2024 (Approximate), Expires: 01/06/2025 [facility] Comment on above: Expected: 01/06/2024 (Approximate), Expi res: 01/06/2025 Start: 01-06-2024 End: 01-06-2025 Thyroglobulin Thyroglobulin Lab Routine Hormone disorder Expected: 01/06/2024 (Approximate), Expires: 01/06/2025 [facility] Comment on above: Expected: 01/06/2024 (Approximate), Expi res: 01/06/2025 Start: 01-06-2024 End: 01-06-2025 Thyrotropin [Units/volume] in Serum or Plasma [facility] Comment on above: Ordered: 01/06/2024 Expected: 01/06/2024 (Approximate), Expires: 01/06/2025 Start: 09-17-2023 [facility] Start: 08-07-2022 [facility] Work Phone: Calcitriol [Mass/vol ume] in Serum or Plasma [facility] CHLAMYDIA TRACHOMATI S (GENITO/STI) CHLAMYDIA TRACHOMATIS (GENITO/STI) Lab Routine Exposure to STD Ordered: 03/02/2025 [facility] Comment on above: Ordered: 03/02/2025 Cytology Cervical or vaginal smear or scraping study Pap Smear Pathology and Cytology Routine Well woman exam with routine gynecological exam Ordered: 09/13/2024 [facility] Work Phone: Comment on above: Ordered: 09/13/2024 Cytology Cervical or vaginal smear or scraping study Pap Smear Pathology and Cytology Routine Well woman exam with routine gynecological exam Ordered: 03/02/2025 [facility] Comment on above: Ordered: 03/02/2025 DHEA-sulfate DHEA-sulfate Lab Routine Hormone disorder Ordered: 01/06/2024 [facility] Comment on above: Ordered: 01/06/2024 Estradiol Estradiol Lab Ro utine Hormone disorder Ordered: 01/06/2024 [facility] Work Phone: Comment on above: Ordered: 01/06/2024 Estradiol (E2) [Mass /volume] in Serum or Plasma [facility] Estrone Estrone Lab Rout ine Hormone disorder Ordered: 01/06/2024 [facility] Comment on above: Ordered: 01/06/2024 Estrone (E1) [Mass/v olume] in Serum or Plasma [facility] Ferritin [Mass/volum e] in Serum or Plasma Ferritin Lab Routine Hormone disorder Ordered: 01/06/2024 [facility] Comment on above: Ordered: 01/06/2024 Hemoglobin A1c measurement Hemog lobin A1c Lab Routine Hormone disorder Ordered: 01/06/2024 [facility] Comment on above: Ordered: 01/06/2024 Human papilloma viru s DNA [Presence] in Unspecified specimen by Probe with amplification HPV DNA probe, amplified Microbiology Routine Well woman exam with routine gynecological exam Ordered: 09/13/2024 [facility] Comment on above: Ordered: 09/13/2024 Human papilloma viru s DNA [Presence] in Unspecified specimen by Probe with amplification HPV DNA probe, amplified Microbiology Routine Well woman exam with routine gynecological exam Ordered: 03/02/2025 [facility] Comment on above: Ordered: 03/02/2025 Insulin [Units/volum e] in Serum or Plasma [facility] Neisseria gonorrhoea e DNA [Presence] in Unspecified specimen by ROB with probe detection Neisseria gonorrhea DNA probe, direct Lab Routine Exposure to STD Ordered: 03/02/2025 [facility] Comment on above: Ordered: 03/02/2025 Progesterone Progesterone Lab Routine Hormone disorder Ordered: 01/06/2024 [facility] Comment on above: Ordered: 01/06/2024 Progesterone [Mass/v olume] in Serum or Plasma [facility] Serotonin [Mass/volu me] in Plasma [facility] Sex hormone binding globulin Sex hormone binding globulin Lab Routine Hormone disorder Ordered: 01/06/2024 [facility] Comment on above: Ordered: 01/06/2024 SURESWAB(R) ADVANCED VAGINITIS PLUS, TMA SURESWAB(R) ADVANCED VAGINITIS PLUS, TMA Pathology and Cytology Routine Vaginal discharge Ordered: 03/02/2025 [facility] Work Phone: Comment on above: Ordered: 03/02/2025 T3, reverse T3, reverse Lab Routine Hormone disorder Ordered: 01/06/2024 [facility] Comment on above: Ordered: 01/06/2024 Testosterone Free [Mass/volume] in Serum or Plasma [facility] TESTOSTERONE, FREE TESTOSTERONE, FREE Lab Routine Hormone disorder Ordered: 01/06/2024 [facility] Comment on above: Ordered: 01/06/2024 Testosterone, free, total Testos terone, free, total Lab Routine Hormone disorder Ordered: 01/06/2024 [facility] Comment on above: Ordered: 01/06/2024 Throat culture Throat Culture [facility] Thyroglobulin Ab [Units/volume] in Serum or Plasma [facility] Thyroid peroxidase antibody Thyr oid peroxidase antibody Lab Routine Hormone disorder Ordered: 01/06/2024 [facility] Comment on above: Ordered: 01/06/2024 Thyroperoxidase Ab [Units/volume] in Serum or Plasma [facility] Thyroxine (T4) free [Mass/volume] in Serum or Plasma T4, free Lab Routine Hormone disorder Ordered: 01/06/2024 [facility] Comment on above: Ordered: 01/06/2024 Triiodothyronine (T3 ) Free [Mass/volume] in Serum or Plasma T3, free Lab Routine Hormone disorder Ordered: 01/06/2024 [facility] Comment on above: Ordered: 01/06/2024 Vitamin D 1,25 dihydroxy Vitamin D 1,25 dihydroxy Lab Routine Hormone disorder Ordered: 01/06/2024 [facility] Comment on above: Ordered: 01/06/2024 [facility] Work Phone: Immunizations Immunization Date Immunization Notes Care Provider Fa cility 09-15-2023 influenza, injectabl e, quadrivalent, preservative free [facility] 09-15-2023 influenza virus vaccine, unspecified formulation Ángel Buckner DO Work Phone: [facility] 09-25-2022 COVID-19 Moderna (BIvalent) Kiya Schaffer Other [facility] 08-23-2021 COVID-19 Hai Dillon Other [facility] 07-31-2021 COVID-19 Hai Dillon Other [facility] 05-19-2021 diphtheria, tetanus toxoids and pertussis vaccine [facility] Payers Date Payer Category Payer Self-pay [id number] 2022 Private Health Insurance [employer] [id number] 2022 Unknown [employer] [id number] 2022-Present [address] [place] [address] [id number] 1990 Unknown [id number] 1990 Unknown [id number] 1990 Unknown [id number] .[id number] 1990 Unknown [id number] .[id number] 1990 Unknown [id number] .[id number] 1990 Unknown [id number] .[id number] 1990 Unknown [id number] .9 1990 Unknown [id number] .9 1990 Unknown [id number] .9 1990 Unknown [id number] .[id number] 1959 Unknown [id number] Unknown [id number] .[id number] Unknown [id number] .[id number] Worker's Compensation [facility] [place] t [place] [id number] Social History Date Type Detail Facility Start: 10-13-2023 End: 09-13-2024 Sex Assigned At [facility] Start: 1990 Sex Assigned At Female F [facility] Start: 08-13-2023 End: 05-03-2024 Tobacco smoking status GAIS Never smoked tobacco [facility] Start: 01-06-2024 End: 05-01-2025 Alcohol intake Current drinker of alcohol (finding) [...] Gender identity Identifies as female gender (finding) [facility] Start: 10-18-2024 Sex Female (finding) [facility] Start: 11-16-2024 HERBIE Ybarra karlee Clinical Notes 08-23-2021 to 05-01-2025 Edson Dewitt NP - 05/01/2025 8:30 AM Joselito Kearney LPN - 03/30/2025 10:10 AM ALEXANDER Abbott - 03/02/2025 9:30 AM ALEXANDER Abbott - 02/02/2025 9:10 AM EST Note Date & Type Note Facility 05-01-2025 History of Presen t illness Narrative Reason for Appointment: Patient ID: Michelet eRyes is a 35 y.o. female who presents [...] Diagnosis Date Fatigue GARTH (generalized anxiety disorder) ([facility]) Hyperlipidemia ([facility]) Paronychia, finger HISTORY PAST MEDICAL HISTORY SOCIAL HISTORY Past Medical History: Diagnosis Date Fatigue GARTH (generalized anxiety disorder) ([facility]) Hyperlipidemia ([facility]) Paronychia, finger Social History Tobacco Use Smoking [...] nursing note reviewed. Exam conducted with a bit bender present. Vitals: Estimated body mass index is 34.43 kg/m as calculated from the following: Height [...] weeks for routine OB appointment. Documented by Edson Dewitt NP on behalf of: Edson Dewitt NP documented in this encounter [facility] 03-30-2025 History of Presen t illness Narrative [...] nursing note reviewed. Exam conducted with a bit bender present. Vitals: Estimated body mass index is [...] Ángel Buckner DO documented in this encounter [facility] 03-02-2025 History of Presen t [...] nursing note reviewed. Exam conducted with a bit bender present. Vitals: Estimated body mass index is [...] obtained without difficulty and patient was given [facility] order to have obtained. Orders Placed This [...] of: ALEXANDER Gramajo documented in this encounter [facility] 02-02-2025 History of Presen t [...] Ángel Buckner DO documented in this encounter [facility] 09-13-2024 History of Presen t [...] nursing note reviewed. Exam conducted with a bit bender present. Vitals: Estimated body mass index is [...] Ángel Buckner DO documented in this encounter [facility] 01-06-2024 History of Presen t [...] Fatigue GARTH (generalized anxiety disorder) (CMS/HCC) Hyperlipidemia (CMS/[facility]) Paronychia, finger Family History Problem Relation Name [...] of: ALEXANDER Gramajo documented in this encounter [facility] 10-02-2023 Evaluation note Encounter Date [...] prior to bedtime. Weight loss. Pepcid PRN [facility] Other 2023 Evaluation note* Encounter Date Diagnosis Assessment Notes Treatment Notes Treatment Clinical Notes Dec, Nasal turbinate hypertrophy (ICD-10 - J34.3) FLonase, saline NS, Sudafed and avoid use of Afin. Refer to ENT. Dec, Nonallergic vasomotor rhinitis (ICD-10 - J30.0) Prednisone tapered over 8 days. Claritin as needed. [facility] Other 02-13-2023 Evaluation note* Encounter Date Diagnosis Assessment Notes Treatment Notes Treatment Clinical Notes Dec, Acute non-recurrent maxillary sinusitis (ICD-10 - J01.00) [facility] Other 01-25-2023 Evaluation note* Encounter Date Diagnosis Assessment Notes Treatment Notes Treatment Clinical Notes Nov, Acute non-recurrent maxillary sinusitis (ICD-10 - J01.00) Instructed to use Robitussin or Mucinex for cough, saline or Flonase NS for congestion, Tylenol for pain and fever. [facility] Other 10-28-2022 Evaluation note* Encounter Date Diagnosis [...] (suspected) exposure to covid-19 (ICD-10 - Z20.822) [facility] Other 10-27-2022 Evaluation note* Encounter Date Diagnosis Assessment Notes Treatment Notes Treatment Clinical Notes Aug, Encounter for immunization (ICD-10 - Z23) Patient presents today for COVID-19 vaccination booster. Patient pre-vaccination form answers reviewed. Patient denies current illness or allergic reaction to any component of a COVD-19 vaccine. Patient provided with copy of current EUA. [facility] Other 02-02-2022 Evaluation note* Encounter Date Diagnosis [...] Patient care instructions given in writting by [employer] [facility] document. Additional time spent conducting pre-visit phone call, screening for symptoms, instructions on social distancing, application and removal of PPE, and cleaning of examination room, equipment and supplies was preformed. Patient education given for testing methodology and results. Patient care instructions given in writting by [facility] document. [facility] [facility] Other 01-28-2022 Evaluation note* Encounter Date Diagnosis [...] Patient care instructions given in writting by [facility] document. [facility] [facility] Other 09-24-2021 Evaluation note* Encounter Date Diagnosis Assessment Notes Treatment Notes Treatment Clinical Notes Jul, Encounter for immunization (ICD-10 - Z23) Patient presents for COVID-19 vaccination #2. Pre-screening form answers evaluated with patient. Patient denies current illness or allergic reaction to component of COVID-19 vaccine. Patient provided with current copy of EUA. [employer] Other Evaluation noteNo assessment information available [facility] Work Phone: [employer] Other Evaluation note* Diagnosis Encounter for weight management Hormone disorder Unspecified endocrine disorder 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 [facility] Diagnosis Well woman exam with routine gynecological exam Routine gynecological examination documented [facility] Diagnosis Onset Date Resolution Status Admit Date Hypercholesteremia acute Novemb er 2023 11:13am Wellness examination acute Nove mber 2023 11:13am [facility] Work Phone: Evaluation note* Diagnosis 13 weeks [...] Heartburn Allergy, sequela documented in this encounter [facility] HealthcareEvaluation note* Diagnosis Second trimester state, incidental 21 weeks gestation of Diabetes mellitus screening Screening for diabetes mellitus Uterovaginal prolapse, incomplete Encounter for follow-up ultrasound of anatomy documented in this encounter [facility] HealthcareEvaluation note* Diagnosis size inconsistent with dates- Primary Second trimester state, incidental 25 weeks gestation of documented in this encounter [facility] HealthcareHistory general Narrative - Reported* Type Description Date Medical History Child X2 Natural Surgical History No know Surgical history Hospitalization History see above [facility] Other History general Narrative - Reported* Type Description Date Medical History Child X2 Natural Surgical History No Surgical history information Hospitalization History see above [facility] Other [employer]iv general Narrative - Reported* Type Description Date Medical History Child X2 Natural Medical History Body mass index (BMI) of 25.0 to 29.9 Medical History Fatigue Medical History Hyperlipidemia, group A Medical History GARTH (generalized anxiety disorde r) Surgical History No know Surgical history Hospitalization History No know Hospitalization history [facility] Other Chief Complaint and Reason for Visit [...] Nasal turbinate hype rtrophy (J34.3) Referral Organization [facility] Nela Maldonado karan Referring Provider First Name Robles Referring Provider Last Name Nela Referring Provider Specialty Internal Me dicine Referred Organization [facility] Referred Provider Robles Hernandez Referred Address ,[place], [place],[address] Referred Provider Specialty Otolaryngolo gy Referral Priority Routine Referral Appointment Date 2023-02-04 General Notes Rosangela Cruz 09:25:33 AM >received today, notes locked, insurance card attached, referral faxed Rosangela Cruz 01/29/2023 12:42:25 PM >Shannan at Dr. Rodriges office requested referral be faxed again to [phone]. done! Rosangela Cruz 02/05/2023 02:23:23 PM >notes [...] Primary Care Provider Active Delano Francis DO [facility] Attending Provider Active Team Status: Active Member [...] January 07, 2024 End: January 07, 2024 Cane Stripper Relationship Specialty Start Date End Date Robles Charles MD [address] [place] [address] PCP - General Internal Medicine 07/30/23 Team Status: Inactive Member Role Status Dates Robles Charles DO Primary Care Provide r, Attending Provider Active Start: 2024 End: 2024 Team Status: Inactive Member Role Status Dates Robles Charles DO Primary Care Provider Active Start: May 03, 2024 End: May 03, 2024 Caro Chacon APRN [employer] TECHNICIAN[employer]C Attending Provider Act alex Start: May 03, 2024 End: May 03, 2024 Team Status: Inactive Member Role Status Dates Robles Charles DO Primary Care Provide r, Attending Provider Active Start: August 29, 2024 End: August 29, 2024 Cane Stripper Relationship Specialty Start Date End Date Robles Charles MD [address] [place] [phone] PCP - General Internal Medicine 07/30/23 Deisy Villar PA [address] [place] [address] [place] [address] PCP - Medical [employer] 11/30/23 11/29/99 Cane Stripper Relationship Specialty Start Date End Date Robles Charles MD [address] [place] [phone] PCP - General Internal Medicine 07/30/23 Deisy Villar PA [address] [place] [address] [place] [address] PCP - Medical [employer] 11/30/23 11/29/99 Cane Stripper Relationship Specialty Start Date End Date Robles Charles MD [address] [facility] [place] [phone] PCP - General Internal Medicine 07/30/23 Deisy Villar PA [address] [place] [address] [place] [address] PCP - Medical [employer] 11/30/23 11/29/99 Team Status: Inactive Member Role Status Dates Robles Charles , Primary Care Provider Active Start: September 22, 2024 End: September 22, 2024 Delano Francis - DERRICK , DO [facility] Attending Provider Active Start: September 22, 2024 End: September 22, 2024 Team Status: Active Member Role Status Dates Robles Charles , Primary Care Provide r, Attending Provider Active Start: October 14, 2024 Team Status: Inactive Member Role Status Dates Robles Charles , Primary Care Provide r, Attending Provider Active Start: October 18, 2024 End: October 18, 2024 Cane Stripper Relationship Specialty Start Date End Date Robles Charles MD [address] [facility] [place] [address] PCP - General Internal Medicine 07/30/23 Deisy Villar PA [address] [place] [address] [place] [address] PCP - Medical [employer] 11/30/23 11/29/99 Cane Stripper Relationship Specialty Start Date End Date Robles Charles MD [address] [facility] [place] [address] PCP - General Internal Medicine 07/30/23 Deisy Villar PA [address] [place], [place] [address] [address] PCP - Medical [employer] 11/30/23 11/29/99 Cane Stripper Relationship Specialty [place] [address] [place] [phone] PCP - General Internal Medicine 07/30/23 Deisy Villar PA [address] [place], [place] [address] [address] PCP - Medical [employer] 11/30/23 11/29/99 Cane Stripper Relationship Specialty [place] [address] [place] [phone] PCP - General Internal Medicine 07/30/23 Deisy Villar PA [address] [place] [address] [place] [address] PCP - Medical [employer] 11/30/23 11/29/99 Cane Stripper Relationship Specialty Start Date End Date Robles Charles MD PCP - General Internal Medicine 07/30/23 Deisy Villar PA [address] [place], [place] [address] [address] PCP - Medical [employer] 11/30/23 11/29/99 Cane Stripper Relationship Specialty Start Date End Date Robles Charles DO PCP - General Internal Medicine 07/30/23 Deisy Villar PA [address] [place] [address] PCP - Medical [employer] 11/30/23 11/29/99 Cane Stripper Relationship Specialty Start Date End Date Robles Charles DO [address] [place] [facility] [place] [address] PCP - General Internal Medicine 07/30/23 Deisy Villar PA [address] [place] [address] PCP - Medical [employer] 11/30/23 11/29/99 Cane Stripper Relationship Specialty Start Date End Date Robles Charles DO [address] [place] [facility] [place] [address] PCP - General Internal Medicine 07/30/23 Deisy Villar PA [address] [place] [address] PCP - Medical [employer] 11/30/23 11/29/99 Cane Stripper Relationship Specialty Start Date End Date Robles Charles DO [address] [place] [address] PCP - General Internal Medicine 07/30/23 Deisy Villar, PA [address] [place] [address] PCP - Medical [employer] 11/30/23 11/29/99 Cane Stripper Relationship Specialty Start Date End Date Robles Charles DO [address] [facility] [place] [place] [address] PCP - General Internal Medicine 07/30/23 Deisy Villar, PA [address] [place], [place] [phone] PCP - Medical [employer] 11/30/23 11/29/99 Goals (unrecognized section and content) Goals may be documented in a n alternate section INFORMATION SOURCE (unrecogn ized section and content) DATE CREATED AUTHOR 09/02/2022 [facility] DATE CREATED AUTHOR AUTHOR'S ORGANIZ ATION 09/23/2024 [facility] DATE CREATED AUTHOR AUTHOR'S ORGANIZ ATION 05/01/2025 [facility] FOR RECORDS PERTAINING TO PATIENTS [...] BE BASED ON THE PRIMARY CLINICAL RECORDS. [facility] [employer] provides no warranty or guarantee of the accuracy or completeness of information in this document.
--- OUTSIDE RECORDS SUMMARY | 2025-05-26 06:37 | XMS_ITS | Encounter Summary ---
Author Organization [facility] Address [address] [place] [place] [address] Care Team Providers Care Home Appraiser Name Role Phone Robles Charles Primary Care Provider [phone] Deisy Haji Unavailable Encounter Details Date Type Department Care Team (Late Contact Info) Description 03/09/2025 Orders Only [facility] OB [address] [place] [address] Camille Lawrence LPN [address] [place] [address] Social History Tobacco Use Types [...] AM EDT Routine [facility] [address] [facility] [place] [phone] Ángel Buckner, DO [address] [place] [place], [place] [phone] 09/19/2025 8:30 AM EDT Office Visit [facility] OB [address] [place] [phone] Ángel Buckner, DO [address] [place], [place] [phone] documented as of this encounter Procedures Procedure Name Priority Date/Time Associated Diagnosis Comments PAP SMEAR Routine 03/02/2025 12:00 AM EDT documented in this encounter Results * Pap Smear (03/02/2025 12:00 AM EDT) Swab Cervical swab / Unknown Sita Nurse [facility] Ob LAB CYTOLOGY ORDERABLES Final Result EXTERNAL LAB documented in this encounter Visit Diagnoses Not on filedocumented in this encounter Care Teams Home Appraiser Relationship Specialty Start Date End Date Robles Charles DO [address] [facility] [place] [address] PCP - General Internal Medicine 07/30/23 Deisy Haji PA [address] [place] [address] [place] [address] PCP - Medical [place] [employer] 11/30/23 11/29/99 documented as of this encounter
[2025-05-26 07:39] LABS: Basophils Percent Auto 0.3 % (0.2-2.0); Eosinophils Absolute Auto 0.2 10^3/uL (0.0-0.7); Eosinophils Percent Auto 1.4 % (0.9-7.0); Hematocrit 29.8 % (36.0-48.0); Hemoglobin 10.2 g/dL (12.0-16.0); Immature Granulocytes Abs Auto 0.12 10^3/uL (0.00-0.03); Immature Granulocytes Pct Auto 1.1 % (0.0-0.5); Lymphocytes Absolute Auto 1.4 10^3/uL (1.2-3.8); Lymphocytes Percent Auto 13.4 % (20.5-60.0); Mean Corpuscular HGB Conc 34.2 g/dL (29.9-35.2); Mean Corpuscular Volume 96.4 fL (81.0-99.0); Mean Platelet Volume 9.5 fL (9.5-13.5); Monocytes Absolute Auto 0.8 10^3/uL (0.3-0.8); Monocytes Percent Auto 7.4 % (1.7-12.0); Neutrophils Percent Auto 76.4 % (43.0-75.0); Platelet Count 340 10^3/uL (150-450); Red Blood Count 3.09 10^6/uL (4.20-5.40); Red Cell Distribution Width 13.1 % (11.0-15.0); White Blood Count 10.5 10^3/uL (4.0-11.0)
[2025-05-26 09:26] LABS: Alanine Aminotransferase 30 U/L (14-59); Albumin Globulin Ratio 0.7; Albumin Level 2.6 g/dL (3.4-5.0); Alkaline Phosphatase 72 U/L (46-116); Aspartate Amino Transferase 21 U/L (15-37); BUN Creatinine Ratio 13.2; Bilirubin Total 0.4 mg/dL (0.2-1.0); Calcium 8.7 mg/dL (8.5-10.1); Chloride 106 mmol/L (98-107); Cholesterol 290 mg/dL (<=200); Estimated GFR (African America >60 (>=60 mL/min/1.73m^2); Estimated GFR (Non-African Ame >60 (>=60 mL/min/1.73m^2); Globulin 3.7 g/dL; Glucose 79 mg/dL (74-106); HDL Cholesterol 72 mg/dL (40-60); Sodium 138 mmol/L (136-145); Total Protein 6.3 g/dL (6.4-8.2); Triglycerides 170 mg/dL (<=150)
== END 2025-05-26 06:35 | disposition home or self-care (01) ==
PROVIDERS: PCP Internal Medicine; Visit Provider Family Medicine
DX: Z00.00 Encounter for general adult medical examination without abnormal findings (principal)
CPT/HCPCS: 36415; 80053; 80061; 85025

== ENCOUNTER 2025-05-26 08:08 | Outpatient (RCR) | payer OTHER, SELFPAY ==
[2025-05-26 12:14] VITALS: BP 121/77; PULSE 61; TEMP 36.2; O2SAT 94
[2025-05-26] MEDS: RHO(D) IMMUNE GLOBULIN 1,500 UNIT SYRINGE 1500 UNIT IM (12:25)
== END 2025-05-30 09:49 | disposition home or self-care (01) ==
LOC: LAB 08:08
PROVIDERS: PCP Internal Medicine; Visit Provider Obstetrics & Gynecology
DX: Z00.00 Encounter for general adult medical examination without abnormal findings (principal); Z51.81 Encounter for therapeutic drug level monitoring; Z67.91 Unspecified blood type, Rh negative
CPT/HCPCS: 36415; 80053; 80061; 85025; 86850; 86900; 86901; 96372; J2791

== ENCOUNTER 2025-06-03 08:06 | Outpatient (OUT) | payer OTHER, SELFPAY ==
--- NOTE | 2025-06-03 08:08 | US_ITS ---
[address] [address] Patient Name: PHILLIP HERNANDEZ MRN: [facility]:[id number] date: 1990 Sex: F Assigned Patient Location: [facility] Current Patient Location: Accession/Order Number: [id number] Exam Date: 06/03/2025 14:22 Report Date: 06/03/2025 14:23 At the request of: LE DELVALLE DO Procedure: US OB BPP w non-stress Ultrasound biophysical profile HISTORY: History of miscarriage. Advanced maternal age Adequate breathing movement, gross body movement, tone and amniotic fluid volume for total score of 8 out of 8. The amniotic fluid index is 13.0cm within normal limits. The heart rate 152 bpm. US/US OB BPP w non-stress IMPRESSION: Adequate ultrasound biophysical profile Impression dictated by: Aguilar Durand M.D. 06/03/2025 2:23 PM Dictation Location[facility] Electronically authenticated by: [id number] Y Date: 06/03/2025 14:23
--- OUTSIDE RECORDS SUMMARY | 2025-06-03 08:10 | XMS_ITS | CCD ---
Author Organization [facility] CliniSyia Care Team Providers Care Hotel Maid Name Role Phone Subha Dillon Unavailable Elsi Mayer Unavailable MD Liz Conteh Primary Care Provider DO Delano Francis Attending Provider [phone] SITA, DR LUJAN Consulting Unavailable SITA, DR LUJAN Admitting Unavailable REQUEST, DR RAIN LISTED Primary Care Unavaila jt BUCKNER, DR LUJAN Attending Unavailable NELA, DR SEARS Attending Unavailable NELA, DR SEARS Consulting Unavailable NELA, DR SEARS Admitting Unavailable REQUEST, DR RAIN LISTED Primary Care Unavaila Kiya Gonsalves Unavailable MD Derick Timmons Attending Provider SHANNON Schaffer Attending Provider [phone] Robles Charles Unavailable MD Liz Cotneh Primary Care Provider [phone] DO Delano Francis Attending Provider [phone] QUANG Villar Attending Provider DO Robles Charles Primary Care Provider Robles Charles MD Primary Care Provider QUANG Villar Attending Provider [phone] DO Robles Charles Primary Care Provider Deisy Pratt Unavailable DO Robles Charles Primary Care Provider Tito - DO Delano MEZA Attending Provider Tito Delano MEZA Admitting Unavailable Tito Delano MEZA Attending Unavailable Robels Charles Primary Care Unavailable Deisy Villar Admitting Unavailable Deisy Villar Attending Unavailable Robles Charles Primary Care Unavailable Robles Charles DO Primary Care Provider [phone] [facility] Delano CRESPO Attending Provider Robles Charles MD Primary Care Provider Robles Charles DO Primary Care Provider Robles Charles DO Primary Care Provider ÁNGEL BUCKNER Attending Unavailable DEISY VILLAR Attending Unavailable SITA, ÁNGEL Attending Unavailable SITA, ÁNGEL Referring Unavailable SITA, ÁNGEL Attending Unavailable ADITHYA, DEISY Attending Unavailable SITA, ÁNGEL Attending Unavailable Allergies Allergy Classification Reported Allergen(s) Allergy Type Date of Onset Reaction(s) Facility (5 sources) Penicillin V Drug Allergy rash [employer] Other (1 source) Amoxicillin Drug Allergy 0 The [facility] (1 source) Penicillins Drug allergy (disorder) The [facility] (5 sources) Penicillin Drug Allergy rash [employer] Other (1 source) Substance with penicillin structure and antibacterial mechanism of action (substance) Drug allergy 3 PENICILLINS [employer] [facility] [employer] Other (20 sources) Amoxicillin Drug Allergy 3 Hives [facility] (20 sources) Penicillin G Drug Allergy 3 Unknown [facility] (1 source) Penicillins Drug allergy (disorder) 4 [facility] Repository Medications Current Medications Medication Drug Class(es) Dates Sig (Normalized) Sig (Original) aspirin 81 mg delayed release oral tablet (17 sources) Platelet Aggregation Inhibitor, Nonsteroidal Anti-inflammatory Drug [...] Active Pre- (10 sources) Pre- Not-Ta flakita Pre- Active [...] size-date discrepancy, unspecified trimester] 05-01-2025 Episodic Other complications of (2 sources) Multigravida of advanced maternal age; Translations: [Supervision of elderly multigravida, third trimester] 05-30-2025 Episodic Other endocrine disorders (1 source) Disorder [...] Overweight Episodic Other and delivery including normal (10 sources) Second trimester ; Translations: [Encounter for supervision of normal , unspecified, second trimester] 02-02-2025 Episodic Other screening for suspected conditions (not mental disorders or infectious disease) (10 sources) Encounter for screening for malignant neoplasm of cervix; Translations: [Patient encounter status] Onset: Episodic Other upper respiratory disease (5 sources) [...] [25 weeks gestation of ] 05-01-2025 Episodic Residual codes; unclassified (2 sources) Gestation period, 29 weeks; Translations: [29 weeks gestation of ] 05-30-2025 Episodic Residual codes; unclassified (2 sources) H/O: miscarriage; Translations: [Personal history of other complications of , childbirth and the puerperium] 05-30-2025 Episodic Unclassified (1 source) Endocrine disorder, unspecified; Translations: [Endocrine disorder, unspecified] Onset: Past or Other Problems Problem Classification Problem Date Documented Da te Episodic/Chronic Unclassified (1 source) Contact with and (suspected) exposure to covid-19 Z20.822 Viral infection (1 source) COVID-19 Onset: 12-27-2021 Resolved: 12-27-2021 Results Test Name Value Interpretation Reference Range Facility Urinalysis macro (dipstick) panel (U)on 05-30-2025 Bilirubin, UA Negative Negative - 4(70) +++ mg/dL [facility] Blood, UA Negative Negative - 50 Ezequiel/mcL [facility] Clarity, UA Clear [facility] Color, UA Yellow [facility] Glucose, UA Negative Negative - 2000(110) ++++ mg/dL [facility] Interpretation and review of laboratory results Normal [facility] Ketones, UA Negative Negative - 160(16) ++++ mg/dL [facility] Leukocytes, UA Negative Negative - 500+++ Jason/mcL [facility] Nitrite, UA Negative Negative - Positive [facility] pH, UA 5.5 5 - 9 [facility] Protein, UA Negative Negative - 2000(20) ++++ mg/dL [facility] Spec Grav, UA 1.02 1 - 1.03 [facility] Urobilinogen, UA 1.0 0.2 - 12 mg/dL [facility] OB GROWTHon 05-11-2025 [place] [address] Ultrasound Report Signed Patient: ANGELA REYES MR#: [id number] : 1990 Acct:[id number] Age/Sex: 35 / F ADM Date: 05/11/25 Loc: US Attending Dr: Edson Dewitt Ordering Physician: Edson Dewitt Date of Service: 05/11/25 Procedure(s): US OB growth Accession Number(s): [id number] cc: Robles Charles D.O.; Edson Dewitt [address] [address] Patient Name: ANGELA REYES MRN: [facility]:[id number] date: 1990 Sex: F Assigned Patient Location: US Current Patient Location: US Accession/Order Number: [id number] Exam Date: 05/11/2025 14:38 Report Date: 05/11/2025 [...] Appropriate growth. Impression dictated by: Justin Mack Jr. DMarlon 05/11/2025 2:40 PM Dictation Location: [place] [address] Electronically authenticated by: [id number] Y Date: 05/11/2025 14:40 Dictated By: Justin Mack M.D. Signed By: 05/11/25 1442 DD/ 1440 TD/TT: Baster Hand: JESSICA RadiologyNeelimaogbrittanie pa MD - 05/11/2025 [place] [address] Ultrasound Report Signed Patient: ANGELA REYES MR#: [id number] : 1990 Acct:[id number] Age/Sex: 35 / F ADM Date: 05/11/25 Loc: US Attending Dr: Edson Dewitt Ordering Physician: Edson Dewitt Date of Service: 05/11/25 Procedure(s): US OB growth Accession Number(s): [id number] cc: Robles Charles D.O.; Edson Dewitt The [address] [address] Patient Name: ANGELA REYES MRN: [facility]:[id number] date: 1990 Sex: F Assigned Patient Location: US Current Patient Location: US Accession/Order Number: [id number] Exam Date: 05/11/2025 14:38 Report Date: 05/11/2025 [...] Appropriate growth. Impression dictated by: Justin Mack Jr. DMarlon 05/11/2025 2:40 PM Dictation Location: [place] [address] Electronically authenticated by: [id number] Y Date: 05/11/2025 14:40 Dictated By: Justin Mack M.D. Signed By: 05/11/25 1442 DD/ 1440 TD/TT: Baster Hand: [facility] Radiology Study observation (narrative) [facility] OB GROWTHOrdered By: Reg ologdarwin Radiology on 05-11-2025 [facility] Work Phone: ALL CBC WITH AUTO DIFFon BASOPHILS ABSOLUTE AUTO 0 N [facility] Basophils/100 WBC (Bld) 0.2 % 0.2 - 2.0 % [facility] Eosinophils/100 WBC (Bld) 1.2 % 0.9 - 7.0 % [facility] Erythrocyte distribution width (RBC) [Ratio] 13.2 % 11.0 - 15.0 % [facility] Hematocrit (Bld) [Volume fraction] 31.9 % Low 36.0 - 48.0 % [facility] Hemoglobin (Bld) [Mass/Vol] 10.6 g/dL Low 12.0 - 16.0 g/dL [facility] IMMATURE GRANULOCYTES ABS AUTO 0.06 High [facility] Immature granulocytes/100 WBC (Bld) 0.6 % High 0.0 - 0.5 % [facility] Interpretation and review of laboratory results Abnormal [facility] LYMPHOCYTES ABSOLUTE AUTO 1.6 [facility] Lymphocytes/100 WBC (Bld) 15.6 % Low 20.5 - 60.0 % [facility] MCH (RBC) [Entitic mass] 32.6 pg 26.7 - 34.0 pg [facility] MCHC (RBC) [Mass/Vol] 33.2 g/dL 29.9 - 35.2 g/dL [facility] MCV (RBC) [Entitic vol] 98.2 fL 81.0 - 99.0 fL [facility] MONOCYTES ABSOLUTE AUTO 0.6 N [facility] Monocytes/100 WBC (Bld) 6 % 1.7 - 12.0 % [facility] NEUTROPHILS ABSOLUTE AUTO 7.7 High [facility] Neutrophils/100 WBC (Bld) 76.4 % High 43.0 - 75.0 % [facility] Platelet mean volume (Bld) [Entitic vol] 9 fL Low 9.5 - 13.5 fL [facility]H EO # 0.1 [facility]H PLT 313 [facility] RBC 3.25 Low [facility] WBC 10.1 [facility] GLUCOSE 1 HOURon 04-18-2025 Glucose [Mass/Vol] 96 mg/dL NINF - 13 0 mg/dL [facility] No Panel Informationon 04-18 [facility] US OB LIMITED 1+ FETUSESon 0 [...] II, MD, PHD at 21-Apr-2025 12:15:59 PM [facility] Normal Not Available Comment on above: Order Comment: US OB INCOMPLETE ANATOMY W US OB TRANSVAGINAL Estimated Date of Delivery: 08/09/25 Gestational Age as of 03/30/2025: 21w1d Urinalysis macro (dipstick) panel (U)on 03-30-2025 Bilirubin, UA Negative Negative - 4(70) +++ mg/dL [facility] Blood, UA Negative Negative - 50 Ezequiel/mcL [facility] Clarity, UA Clear [facility] Color, UA Yellow [facility] Glucose, UA Negative Negative - 1999(110) ++++ mg/dL [facility] Interpretation and review of laboratory results Normal [facility] Ketones, UA Negative Negative - 160(16) ++++ mg/dL [facility] Leukocytes, UA Negative Negative - 500+++ Jason/mcL [facility] Nitrite, UA Negative Negative - Positive [facility] pH, UA 7 5 - 9 [facility] Protein, UA Negative Negative - 1999(20) ++++ mg/dL [facility] Spec Grav, UA 1.02 1 - 1.03 [facility] Urobilinogen, UA 0.2 0.2 - 12 mg/dL [facility] US OB ANATOMYon 03-21-[address] [address] Ultrasound Report Signed Patient: ANGELA REYES MR#: [id number] : 1990 Acct:[id number] Age/Sex: 35 / F ADM Date: 03/20/25 Loc: US Attending Dr: Deisy Villar Ordering Physician: Deisy Villar Date of Service: 03/20/25 Procedure(s): US OB anatomy Accession Number(s): [id number] cc: Deisy Villar; Robles Charles D.O. The [address] [address] Patient Name: ANGELA REYES MRN: [id number]:[id number] date: 1990 Sex: F Assigned Patient Location: US Current Patient Location: Accession/Order Number: [id number] Exam Date: 03/21/2025 13:12 Report Date: 03/21/2025 [...] Aguilar Durand M.D.03/21/2025 1:16 PM Dictation Location: [place] [address] Electronically authenticated by: [id number] Y Date: 03/21/2025 13:16 Dictated By: Aguilar Durand D.O. Signed By: 03/21/25 1319 DD/ 1316 TD/TT: Baster Hand: [facility] Radiology, Radiologi MD ember - 03/21/2025 [place] [address] Ultrasound Report Signed Patient: ANGELA REYES MR#: [id number] : 1990 Acct:[id number] Age/Sex: 35 / F ADM Date: 03/20/25 Loc: US Attending Dr: Deisy Villar Ordering Physician: Deisy Villar Date of Service: 03/20/25 Procedure(s): US OB anatomy Accession Number(s): [id number] cc: Deisy Villar; Robles Charles D.O. [place] [id number] Patient Name: ANGELA REYES MRN: [facility]:[id number] date: 1990 Sex: F Assigned Patient Location: US Current Patient Location: Accession/Order Number: [id number] Exam Date: 03/21/2025 13:12 Report Date: 03/21/2025 [...] Aguilar Durand M.D.03/21/2025 1:16 PM Dictation Location: [place] [address] Electronically authenticated by: [id number] Y Date: 03/21/2025 13:16 Dictated By: Aguilar Durand D.O. Signed By: 03/21/259 DD/ 15 TD/TT: Baster Hand: HERBIE [facility] Radiology Study observation (narrative) [facility] US OB ANATOMYOrdered By: Chepe stewartogdarwin Radiology on 03-21-2025 [facility] Work Phone: US OB CERVICAL LENGTHon 03-01 [place] [address] Ultrasound Report Signed Patient: ANGELA REYES MR#: [id number] : 1990 Acct:[id number] Age/Sex: 35 / F ADM Date: 03/20/25 Loc: US Attending Dr: Deisy Villar Ordering Physician: Deisy Villar Date of Service: 03/20/25 Procedure(s): US OB cervical length Accession Number(s): [id number] cc: Deisy Villar; Robles Charles D.O. [place] [id number] Patient Name: ANGELA REYES MRN: [facility]:[id number] date: 1990 Sex: F Assigned Patient Location: US Current Patient Location: Accession/Order Number: [id number] Exam Date: 03/21/2025 09:18 Report Date: 03/21/2025 09:19 At the request of: DEISY VILLAR Procedure: US OB cervical length Ultrasound assessment of the cervical length The cervical length is 3.8 cm. The cervical os is closed. US/US OB cervical length IMPRESSION: #3.8 cm cervical length. Impression dictated by: Aguilar Durand M.D.03/21/2025 9:19 AM Dictation Location: [place] [address] Electronically authenticated by: [id number] Y Date: 03/21/2025 09:19 Dictated By: Aguilar Durand D.O. Signed By: 03/21/2522 DD/ 8 TD/TT: Baster Hand: [facility] Radiology Radiologbrittanie pa MD - 03/21/[address] [address] Ultrasound Report Signed Patient: ANGELA REYES MR#: [id number] : 1990 Acct:[id number] Age/Sex: 35 / F ADM Date: 03/20/25 Loc: US Attending Dr: Deisy Villar Ordering Physician: Deisy Villar Date of Service: 03/20/25 Procedure(s): US OB cervical length Accession Number(s): [id number] cc: Deisy Villar; Robles Charles D.O. The [place] [address] Patient Name: ANGELA REYES MRN: [id number]:[id number] date: 1990 Sex: F Assigned Patient Location: US Current Patient Location: Accession/Order Number: [id number] Exam Date: 03/21/2025 09:18 Report Date: 03/21/2025 09:19 At the request of: DEISY VILLAR Procedure: US OB cervical length Ultrasound assessment of the cervical length The cervical length is 3.8 cm. The cervical os is closed. US/US OB cervical length IMPRESSION: #3.8 cm cervical length. Impression dictated by: Aguilar Durand M.D.03/21/2025 9:19 AM Dictation Location: [place] [address] Electronically authenticated by: [id number] Y Date: 03/21/2025 09:19 Dictated By: Aguilar Durand D.O. Signed By: 03/21/25921 DD/ 8 TD/TT: Baster Hand: [facility] Radiology Study observation (narrative) [facility] US OB CERVICAL LENGTHOrdered By: Radiologist Radiology on 03-21-2025 [facility] Work Phone: IGP,APTIMA HPV,AGE GDLNon AGE GDLN ACOG TESTING Note . [facility] Comment on above: TESTS RESULT FLAG UN ITS REF RANGE LAB Clinician Provided Cytology Information Source.............Cervix Other.............. No. of containers..01 ThinPrep Vial Age Radha SPRINGER Lara... 30-65 01 FLAG LEGEND: L-Low Normal,H-High Normal,LL-Alert Low,HH-Alert High <-Panic Low,>-Panic High,A-Abnormal,AA-Critical Abnormal Performed at: 01 =G [facility] [place] [address] Ilana Heath MD, HPV APTIMA Negative Negative [facility] Comment on above: This nucleic acid am plification test detects fourteen high- risk HPV types (16,18,31,33,35,39,45,51,52,56,58,59,66,68) without differentiation. Performed at: =G - [facility] [id number] [place] Tar: Ilana Heath MD, Phone: [phone] Performed at: - [facility] [id number] [place]: Ilana Heath MD, Phone: [phone] IGP, APTIMA HPV, RFX 16/18,45 Note . [facility] Comment on above: TESTS RESULT FLAG UN ITS REF RANGE LAB DIAGNOSIS: 02 NEGATIVE FOR INTRAEPITHELIAL LESION OR MALIGNANCY. THIS SPECIMEN WAS RESCREENED PART OF OUR ASSOCIATE PROFESSOR OF FORESTRY PROGRAM. Specimen adequacy: 02 Satisfactory for evaluation. No endocervical component is identified. Performed by: 03 Eugenia Kennedy, Contract Negotiation Specialist (ASCP) QC reviewed by: 02 Meredith Chávez, Well Drill Operator . 02 Note: Note 02 The Pap [...] High,A-Abnormal,AA-Critical Abnormal Performed at: 02 WB [facility] [address] [address] Ilana Heath MD, 03 KWCYT [facility] [place] [facility] [id number] [place] [phone] Lloyd Kim MD, SPATULA-ALONE CERVIX [facility] RECURRENT VAGINITIS (HTRX)on 03-03-2025 ATOPOBIUM VAGINAE 0 [facility] ATOPOBIUM VAGINAE Not detected [facility] BVAB 2,3 (BACTERIAL VAGINOSIS ASSOCIATED BACTERIA 2, 3); MOBILUNCUS SPP 0 [facility] BVAB 2,3 (BACTERIAL VAGINOSIS ASSOCIATED BACTERIA 2, 3); MOBILUNCUS SPP Not detected [facility] ANEUDY ALBICANS, PARAPSILOSIS, TROPICALIS 0 [facility] ANEUDY ALBICANS, PARAPSILOSIS, TROPICALIS Not detected [facility] GLABRATA 0 [facility] ANEUDY GLABRATA Not detected [facility] ANEUDY KRUSEI 0 [facility] ANEUDY KRUSEI Not detected [facility] CHLAMYDIA TRACHOMATIS 0 [facility] CHLAMYDIA TRACHOMATIS Not detected N [facility] GARDNERELLA VAGINALIS 0 [facility]OM [facility] GARDNERELLA VAGINALIS Not detected N [facility] MEGASPHAERA (TYPES 1, 2) 0 [facility] MEGASPHAER[facility] (TYPES 1, 2) Not detected [facility] MYCOPLASMA GENITALIUM 0 [facility] MYCOPLASMA GENITALIUM Not detected N [facility] NEISSERIA GONORRHOEAE 0 [facility] NEISSERIA GONORRHOEAE Not detected N [facility] TRICHOMONAS VAGINALIS 0 NOM [facility] TRICHOMONAS VAGINALIS Not detected N [facility] Urinalysis macro (dipstick) panel (U)on 03-02-2025 Bilirubin, UA Negative Negative - 4(70) +++ mg/dL [facility] Blood, UA Negative Negative - 50 Ezequiel/mcL [facility] Clarity, UA Clear [facility] Color, UA Yellow [facility] Glucose, UA Negative Negative - 1999(110) ++++ mg/dL [facility] Interpretation and review of laboratory results Normal [facility] Ketones, UA Negative Negative - 160(16) ++++ mg/dL [facility] Leukocytes, UA Negative Negative - 500+++ Jason/mcL [facility] Nitrite, UA Negative Negative - Positive [facility] pH, UA 7 5 - 9 [facility] Protein, UA Negative Negative - 2000(20) ++++ mg/dL [facility] Spec Grav, UA 1.02 1 - 1.03 [facility] Urobilinogen, UA 0.2 0.2 - 12 mg/dL [facility] Urinalysis macro (dipstick) panel (U)on 02-02-2025 Bilirubin, UA Negative Negative - 4(70) +++ mg/dL [facility] Blood, UA Negative Negative - 50 Ezequiel/mcL [facility] Clarity, UA Clear [facility] Color, UA Yellow [facility] Glucose, UA Negative Negative - 1999(110) ++++ mg/dL [facility] Interpretation and review of laboratory results Abnormal [facility] Ketones, UA Negative Negative - 160(16) ++++ mg/dL [facility] Leukocytes, UA Trace Negative - 500+++ Jason/mcL [facility] Nitrite, UA Negative Negative - Positive [facility] pH, UA 6 5 - 9 [facility] Protein, UA Negative Negative - 1999(20) ++++ mg/dL [facility] Spec Grav, UA 1.025 1 - 1.03 [facility] Urobilinogen, UA 0.2 0.2 - 12 mg/dL [facility] ALL CBC WITH AUTO DIFFon BASOPHILS ABSOLUTE AUTO 0 N [facility] Basophils/100 WBC (Bld) 0.4 % 0.2 - 2.0 % [facility] Eosinophils/100 WBC (Bld) 2.2 % 0.9 - 7.0 % [facility] Erythrocyte distribution width (RBC) [Ratio] 12.5 % 11.0 - 15.0 % [facility] Hematocrit (Bld) [Volume fraction] 34 % Low 36.0 - 48.0 % [facility] Hemoglobin (Bld) [Mass/Vol] 11.7 g/dL Low 12.0 - 16.0 g/dL [facility] IMMATURE GRANULOCYTES ABS AUTO 0.03 [facility] Immature granulocytes/100 WBC (Bld) 0.4 % 0.0 - 0.5 % [facility] Interpretation and review of laboratory results Abnormal [facility] LYMPHOCYTES ABSOLUTE AUTO 1.6 [facility] Lymphocytes/100 WBC (Bld) 20.4 % Low 20.5 - 60.0 % [facility] MCH (RBC) [Entitic mass] 31.5 pg 26.7 - 34.0 pg [facility] MCHC (RBC) [Mass/Vol] 34.4 g/dL 29.9 - 35.2 g/dL [facility] MCV (RBC) [Entitic vol] 91.6 fL 81.0 - 99.0 fL [facility] MONOCYTES ABSOLUTE AUTO 0.6 N [facility] Monocytes/100 WBC (Bld) 7.2 % 1.7 - 12.0 % [facility] NEUTROPHILS ABSOLUTE AUTO 5.6 [facility] Neutrophils/100 WBC (Bld) 69.4 % 43.0 - 75.0 % [facility] Platelet mean volume (Bld) [Entitic vol] 9.6 fL 9.5 - 13.5 fL [facility] EO # 0.2 [facility] PLT 302 [facility] RBC 3.71 Low [facility] WBC 8 [facility] US OB TRANSVAGINALon 025 US OB [...] II, MD, PHD at 09-Jan-2025 09:10:54 AM [facility] Normal Not Available Comment on above: Order Comment: US OB TRANSVAGINAL No LMP recorded. [facility] PREG QUANT HCGon 025 HCG QUANTITATIVE 79996 mIU/mL [facility] Comment on above: 5-50 0.2-1 WEEK 50-500 1-2 WEEKS 100-5,000 2-3 WEEKS 500-10,000 3-4 WEEKS 1,000-50,000 4-5 WEEKS 10,000-100,000 5-6 WEEKS 15,000-200,000 6-8 WEEKS 10,000-100,000 2-3 [facility] P[facility] QUANT HCGon 025 HCG QUANTITATIVE 77136 mIU/mL [facility] Comment on above: 5-50 0.2-1 WEEK 50-500 1-2 WEEKS 100-5,000 2-3 WEEKS 500-10,000 3-4 WEEKS 1,000-50,000 4-5 WEEKS 10,000-100,000 5-6 WEEKS 15,000-200,000 6-8 WEEKS 10,000-100,000 2-3 MONTHS [facility] Automated basophil %Ordered By: Delano Francis on 09-22-2024 Basophils/100 WBC (Bld) 0.6 % Normal . [facility] Comment on above: Performed By: #### D DANIELLEAS, LC T4, [id number], SEROTON, TEST F + T, T3R, THYGLOB AB, ESTRADIOL, TPO, SHBG, ESTRONE, INSULIN, PROG #### [facility] , #### T4F, TRISTEN, TSH3, A1C WTH eA, FILIBERTO, GLU, T3F #### [facility] [address] [place] [address] Automated basophil countOrde red By: Delano Francis on 09-22-2024 Basophils (Bld) [#/Vol] 0.0 10*3/uL Normal 0.0-0.2 [facility] Comment on above: Result Comment: PERF ORMED BY: [place] [address] PATHOLOGIST DIRECTOR [employer]ARCH MARKETING [employer]ATEGIES JOSE GOEL M.D. Performed By: #### D HEAS, LC T4, [id number], SEROTON, TEST F + T, T3R, THYGLOB AB, ESTRADIOL, TPO, SHBG, ESTRONE, INSULIN, PROG #### [facility] , #### T4F, TRISTEN, TSH3, A1C WTH eA, FILIBERTO, GLU, T3F #### [address] Automated blood monocyte cou ntOrdered By: Delano Francis on 09-22-2024 Monocytes (Bld) [#/Vol] 0.4 10*3/uL Normal 0.0-0.8 [facility] [facility] Comment on above: Performed By: #### D HEAS, LC T4, [id number], SEROTON, TEST F + T, T3R, THYGLOB AB, ESTRADIOL, TPO, SHBG, ESTRONE, INSULIN, PROG #### [facility] , #### T4F, TRISTEN, TSH3, A1C WTH eA, FILIBERTO, GLU, T3F #### [address] Automated eosinophil %Ordere d By: Delano Francis on 09-22-2024 Eosinophils/100 WBC (Bld) 1.7 % Normal . [facility] Comment on above: Performed By: #### D HEAS, LC T4, [id number], SEROTON, TEST F + T, T3R, THYGLOB AB, ESTRADIOL, TPO, SHBG, ESTRONE, INSULIN, PROG #### [facility] , #### T4F, TRISTEN, TSH3, A1C WTH eA, FILIBERTO, GLU, T3F #### [address] Automated eosinophil countOr dered By: Delano Francis on 09-22-2024 Eosinophils (Bld) [#/Vol] 0.1 10*3/uL Normal 0.0-0.45 [facility] Comment on above: Performed By: #### D HEAS, LC T4, [id number], SEROTON, TEST F + T, T3R, THYGLOB AB, ESTRADIOL, TPO, SHBG, ESTRONE, INSULIN, PROG #### [facility] , #### T4F, TRISTEN, TSH3, A1C WTH eA, FILIBERTO, GLU, T3F #### [address] Automated monocyte %Ordered By: Delano Francis on 09-22-2024 Monocytes/100 WBC (Bld) 8.7 % Normal . [facility] Comment on above: Performed By: #### D HEAS, LC T4, [id number], SEROTON, TEST F + T, T3R, THYGLOB AB, ESTRADIOL, TPO, SHBG, ESTRONE, INSULIN, PROG #### [facility] , #### T4F, TRISTEN, TSH3, A1C WTH eA, FILIBERTO, GLU, T3F #### [facility] [address] Automated neutrophil %Ordere d By: Delano Francis on 09-22-2024 Neutrophils/100 WBC (Bld) 63.7 % Normal . [facility] Comment on above: Performed By: #### D HEAS, LC T4, [id number], SEROTON, TEST F + T, T3R, THYGLOB AB, ESTRADIOL, TPO, SHBG, ESTRONE, INSULIN, PROG #### [facility] , #### T4F, TRISTEN, TSH3, A1C WTH eA, FILIBERTO, GLU, T3F #### [facility] [address] [place] [address] Basophils Auto (Bld) [#/Vol] Ordered By: Delano Francis on 09-22-2024 Basophils (Bld) [#/Vol] Automated basophil count 0.0-0.2 [facility] Basophils/100 WBC Auto (Bld) Ordered By: Delano Francis on 09-22-2024 Basophils/100 WBC (Bld) Automated basophil % . [facility] Calcium [Mass/volume] in Ser um or PlasmaOrdered By: Delano Francis on 09-22-2024 Calcium [Mass/Vol] 9.4 mg/dL Normal 8.6-10.3 [facility] Comment on above: Performed By: #### D HEAS, LC T4, [id number], SEROTON, TEST F + T, T3R, THYGLOB AB, ESTRADIOL, TPO, SHBG, ESTRONE, INSULIN, PROG #### [facility] , #### T4F, TRISTEN, TSH3, A1C WTH eA, FILIBERTO, GLU, T3F #### [facility] [address] [place] [id number] [place] Calcium [Mass/Vol] Calcium [Mass/volume ] in Serum or Plasma 8.6-10.3 [facility] Carbon dioxide, total [Moles /volume] in Serum or PlasmaOrdered By: Delano Francis on 09-22-2024 CO2 [Moles/Vol] 29.2 mmol/L Normal 21.0-31.0 [facility] Comment on above: Performed By: #### D HEAS, LC T4, [id number], SEROTON, TEST F + T, T3R, THYGLOB AB, ESTRADIOL, TPO, SHBG, ESTRONE, INSULIN, PROG #### [facility] , #### T4F, TRISTEN, TSH3, A1C WTH eA, FILIBERTO, GLU, T3F #### [facility] [address] [place] [id number] [place] CO2 [Moles/Vol] Carbon dioxide, tota l [Moles/volume] in Serum or Plasma 21.0-31.0 [facility] Chloride [Moles/volume] in S stevo or PlasmaOrdered By: Delano Francis on 09-22-2024 Chloride [Moles/Vol] 105 mmol/L Normal 98-107 [facility] Comment on above: Performed By: #### D HEAS, LC T4, [id number], SEROTON, TEST F + T, T3R, THYGLOB AB, ESTRADIOL, TPO, SHBG, ESTRONE, INSULIN, PROG #### [facility] , #### T4F, TRISTEN, TSH3, A1C WTH eA, FILIBERTO, GLU, T3F #### [facility] [address] [place] [id number] [place] Chloride [Moles/Vol] Chloride [Moles/vol ume] in Serum or Plasma 98-107 [facility] Cholesterol [Mass/volume] in Serum or PlasmaOrdered By: Delano Francis on 09-22-2024 Cholesterol [Mass/Vol] 217 mg/dL High 140-200 [facility] Comment on above: Chol less than 200 m g/dl low riskChol 201-239 mg/dl borderline riskChol 240 mg/dl and greater high risk Result Comment: Chol less than 200 mg/dl low risk Chol 201-239 mg/dl borderline risk Chol 240 mg/dl and greater high risk Performed By: #### D JOSSE NATHAN T4, [id number], SEROTON, TEST F + T, T3R, THYGLOB AB, ESTRADIOL, TPO, SHBG, ESTRONE, INSULIN, PROG #### [facility] , #### T4F, TRISTEN, TSH3, A1C WTH eA, FILIBERTO, GLU, T3F #### [facility] [address] Cholesterol [Mass/Vol] Cholesterol [Mass/volume] in Serum [...] 09-22-2024 Creatinine [Mass/Vol] 0.73 mg/dL Normal 0.60-1.20 [facility] Comment on above: Performed By: #### D HEAS, LC T4, [id number], SEROTON, TEST F + T, T3R, THYGLOB AB, ESTRADIOL, TPO, SHBG, ESTRONE, INSULIN, PROG #### [facility] , #### T4F, TRISTEN, TSH3, A1C WTH eA, FILIBERTO, GLU, T3F #### [facility] [address] Creatinine [Mass/Vol] Creatinine [Mass/v olume] in Serum or Plasma 0.60-1.20 [facility] Employee Basic Metabolic Olvera odell 09-22-2024 GFR/1.73 sq M.predicted MDRD (S/P/Bld) [Vol rate/Area] mL/min/{1.73_m2} Normal [facility] Comment on above: Performed By: #### D HEAS, LC T4, [id number], SEROTON, TEST F + T, T3R, THYGLOB AB, ESTRADIOL, TPO, SHBG, ESTRONE, INSULIN, PROG #### [facility] , #### T4F, TRISTEN, TSH3, A1C WTH eA, FILIBERTO, GLU, T3F #### [facility] [address] Employee Complete Blood Coun ton 09-22-2024 Mean Corpuscular HGB Conc 34.2 g/dL Normal 32.0-35.0 [facility] Comment on above: Performed By: #### D HEAS, LC T4, [id number], SEROTON, TEST F + T, T3R, THYGLOB AB, ESTRADIOL, TPO, SHBG, ESTRONE, INSULIN, PROG #### [facility] , #### T4F, TRISTEN, TSH3, A1C WTH eA, FILIBERTO, GLU, T3F #### [address] NRBC% 0.0 /100{WBC} Normal 0-0.5 [facility] Comment on above: Performed By: #### D HEAS, LC T4, [id number], SEROTON, TEST F + T, T3R, THYGLOB AB, ESTRADIOL, TPO, SHBG, ESTRONE, INSULIN, PROG #### [facility] , #### T4F, TRISTEN, TSH3, A1C WTH eA, FILIBERTO, GLU, T3F #### [address] Employee Lipid Profileon LDL Cholesterol,Calculated 148 mg/dL High 0-100 [facility] Comment on above: Result Comment: LDL ATP III CLASSIFICATION LDL less than 100 mg/dL Optimal LDL 100-129 mg/dL Near or above optimal LDL 130-159 mg/dL Borderline high LDL 160-189 mg/dL High LDL greater than 189 mg/dL Very high Performed By: #### D VENITA, LC T4, [id number], SEROTON, TEST F + T, T3R, THYGLOB AB, ESTRADIOL, TPO, SHBG, ESTRONE, INSULIN, PROG #### [facility] , #### T4F, TRISTEN, TSH3, A1C WTH eA, FILIBERTO, GLU, T3F #### [address] Triglyceride w/Reflex 52 mg/dL Normal 0-149 [facility] Comment on above: Result Comment: TRIG ATP III CLASSIFICATION TRIG less than 150 mg/dL Normal TRIG 150-199 mg/dL Borderline high TRIG 200-500 mg/dL High TRIG greater than 500 mg/dL Very high Standard traceable to the Center for Disease Conrtrol and Prevention (CDC) test method. Performed By: #### D HEAS, LC T4, [id number], SEROTON, TEST F + T, T3R, THYGLOB AB, ESTRADIOL, TPO, SHBG, ESTRONE, INSULIN, PROG #### [facility] , #### T4F, TRISTEN, TSH3, A1C WTH eA, FILIBERTO, GLU, T3F #### [address] VLDL CHOLESTEROL 10 mg/dL Normal [facility] Comment on above: Performed By: #### D HEAS, LC T4, [id number], SEROTON, TEST F + T, T3R, THYGLOB AB, ESTRADIOL, TPO, SHBG, ESTRONE, INSULIN, PROG #### [facility] , #### T4F, TRISTEN, TSH3, A1C WTH eA, FILIBERTO, GLU, T3F #### [address] Employee Thyroid Stim Hormon lonnie 09-22-2024 Employee Thyroid Stim Hormone 2.30 u[iU]/mL Normal 0.45-5.33 [facility] Comment on above: Result Comment: PERF ORMED BY: [place] [id number] PATHOLOGIST DIRECTOR [employer] JOSE GOEL M.D. Performed By: #### D VENITA, LC T4, [id number], SEROTON, TEST F + T, T3R, THYGLOB AB, ESTRADIOL, TPO, SHBG, ESTRONE, INSULIN, PROG #### [facility] , #### T4F, TRISTEN, TSH3, A1C WTH eA, FILIBERTO, GLU, T3F #### [address] Eosinophils Auto (Bld) [#/Vo l]Ordered By: [...] Performed By: #### D HEAS, LC T4, [id number], SEROTON, TEST F + T, T3R, THYGLOB AB, ESTRADIOL, TPO, SHBG, ESTRONE, INSULIN, PROG #### [facility] , #### T4F, TRISTEN, TSH3, A1C WTH eA, FILIBERTO, GLU, T3F #### [facility] [address] [place] [address] [place] Erythrocytes [#/volume] in B lood by Automated countOrdered By: Delano Francis on 09-22-2024 RBC (Bld) [#/Vol] 3.91 10*6/uL Normal 3.60-5.00 [facility] Comment on above: Performed By: #### D DANIELLEAS, LC T4, [id number], SEROTON, TEST F + T, T3R, THYGLOB AB, ESTRADIOL, TPO, SHBG, ESTRONE, INSULIN, PROG #### [facility] , #### T4F, TRISTEN, TSH3, A1C WTH eA, FILIBERTO, GLU, T3F #### [facility] [address] [place] [address] [place] Glucose [Mass/volume] in Ser um or PlasmaOrdered By: Delano Francis on 09-22-2024 Glucose [Mass/Vol] 83 mg/dL Normal 70-100 [facility] Comment on above: Performed By: #### D HEAS, LC T4, [id number], SEROTON, TEST F + T, T3R, THYGLOB AB, ESTRADIOL, TPO, SHBG, ESTRONE, INSULIN, PROG #### [facility] , #### T4F, TRISTEN, TSH3, A1C WTH eA, FILIBERTO, GLU, T3F #### [address] Glucose [Mass/Vol] Glucose [Mass/volume ] in [...] on above: Performed By: #### Adria NATHAN, JOSSE T4, [id number], SEROTON, TEST F + T, T3R, THYGLOB AB, ESTRADIOL, TPO, SHBG, ESTRONE, INSULIN, PROG #### [facility] , #### T4F, TRISTEN, TSH3, A1C WTH eA, FILIBERTO, GLU, T3F #### [facility] [address] [place] [address] [place] Hemoglobin [Mass/volume] in BloodOrdered By: Delano Francis on 09-22-2024 Hemoglobin (Bld) [Mass/Vol] 12.3 g/dL Normal 11.8-15.4 [facility] Comment on above: Performed By: #### Adria NATHAN, LC T4, [id number], SEROTON, TEST F + T, T3R, THYGLOB AB, ESTRADIOL, TPO, SHBG, ESTRONE, INSULIN, PROG #### [facility] , #### T4F, TRISTEN, TSH3, A1C WTH eA, FILIBERTO, GLU, T3F #### [facility] [address] [place] [address] [place] Hemoglobin (Bld) [Mass/Vol] Hemoglobin [Mass/volume] in [...] WBC (Bld) [#/Vol] 5.1 10*3/uL Normal 3.8-11.6 [facility] Comment on above: Performed By: #### D HEAS, LC T4, [id number], SEROTON, TEST F + T, T3R, THYGLOB AB, ESTRADIOL, TPO, SHBG, ESTRONE, INSULIN, PROG #### [facility] , #### T4F, TRISTEN, TSH3, A1C WTH eA, FILIBERTO, GLU, T3F #### [facility] [address] [place] [address] [place] Lymphocytes Auto (Bld) [#/Vo l]Ordered By: Delano Francis on 09-22-2024 Lymphocytes (Bld) [#/Vol] Lymphocytes [#/volume] in Blood by Automated count .00-.8 [facility] Lymphocytes [#/volume] in Bl ood by Automated countOrdered By: Delano Francis on 09-22-2024 Lymphocytes (Bld) [#/Vol] 1.3 10*3/uL Normal 1.00-4.8 [facility] Comment on above: Performed By: #### D HEAS, LC T4, [id number], SEROTON, TEST F + T, T3R, THYGLOB AB, ESTRADIOL, TPO, SHBG, ESTRONE, INSULIN, PROG #### [facility] , #### T4F, TRISTEN, TSH3, A1C WTH eA, FILIBERTO, GLU, T3F #### [facility] [address] [place] [address] [place] Lymphocytes/100 WBC Auto (Bl d)Ordered By: Delano Francis on 09-22-2024 Lymphocytes/100 WBC (Bld) Lymphocytes/100 leukocytes in Blood by Automated count . [facility] Lymphocytes/100 leukocytes i n Blood by Automated countOrdered By: Delano Francis on 09-22-2024 Lymphocytes/100 WBC (Bld) 25.3 % Normal . [facility] Comment on above: Performed By: #### D VENITA, LC T4, [id number], SEROTON, TEST F + T, T3R, THYGLOB AB, ESTRADIOL, TPO, SHBG, ESTRONE, INSULIN, PROG #### [facility] , #### T4F, TRISTEN, TSH3, A1C WTH eA, FILIBERTO, GLU, T3F #### [facility] [address] MCH Auto (RBC) [Entitic mass ]Ordered By: Delano Francis on 09-22-2024 MCH (RBC) [Entitic mass] MCH [Entitic mass] by Automated count 24.7-34.3 [facility] MCH [Entitic mass] by Automa calvin countOrdered By: Delano Francis on 09-22-2024 MCH (RBC) [Entitic mass] 31.4 pg Normal 24.7-34.3 [facility] Comment on above: Performed By: #### D VENITA, LC T4, [id number], SEROTON, TEST F + T, T3R, THYGLOB AB, ESTRADIOL, TPO, SHBG, ESTRONE, INSULIN, PROG #### [facility] , #### T4F, TRISTEN, TSH3, A1C WTH eA, FILIBERTO, GLU, T3F #### [facility] [address] [place] [address] MCHC Auto (RBC) [Mass/Vol]Or dered By: Delano Francis on 09-22-2024 MCHC (RBC) [Mass/Vol] 34.2 g/dL 32.0-35.0 [facility] MCHC (RBC) [Mass/Vol] MCHC [Mass/volume] by Automated count 32.0-35.0 [facility] MCV Auto (RBC) [Entitic vol] Ordered By: Delano Francis on 09-22-2024 MCV (RBC) [Entitic vol] MCV [Entitic vol ume] by Automated count 80-100 [facility] MCV [Entitic volume] by Auto mated countOrdered By: Delano Francis on 09-22-2024 MCV (RBC) [Entitic vol] 91.7 fL Normal 80-100 [facility] Comment on above: Performed By: #### D HEAS, LC T4, [id number], SEROTON, TEST F + T, T3R, THYGLOB AB, ESTRADIOL, TPO, SHBG, ESTRONE, INSULIN, PROG #### [facility] , #### T4F, TRISTEN, TSH3, A1C WTH eA, FILIBERTO, GLU, T3F #### [facility] [address] [place] [address] [place] Monocytes Auto (Bld) [#/Vol] Ordered By: [...] Performed By: #### D HEAS, LC T4, [id number], SEROTON, TEST F + T, T3R, THYGLOB AB, ESTRADIOL, TPO, SHBG, ESTRONE, INSULIN, PROG #### [facility] , #### T4F, TRISTEN, TSH3, A1C WTH eA, FILIBERTO, GLU, T3F #### [facility] [address] Neutrophils/100 WBC Auto (Bl d)Ordered By: [...] Performed By: #### D HESUE, JOSSE T4, [id number], SEROTON, TEST F + T, T3R, THYGLOB AB, ESTRADIOL, TPO, SHBG, ESTRONE, INSULIN, PROG #### [facility] , #### T4F, TRISTEN, TSH3, A1C WTH eA, FILIBERTO, GLU, T3F #### [facility] [address] Platelets Auto (Bld) [#/Vol] Ordered By: Delano Francis on 09-22-2024 Platelets (Bld) [#/Vol] Platelets [#/vol ume] in Blood by Automated count 150-450 [facility] Platelets [#/volume] in Bloo d by Automated countOrdered By: Delano Francis on 09-22-2024 Platelets (Bld) [#/Vol] 328 10*3/uL Normal 150-450 [facility] Comment on above: Performed By: #### D HEAS, LC T4, [id number], SEROTON, TEST F + T, T3R, THYGLOB AB, ESTRADIOL, TPO, SHBG, ESTRONE, INSULIN, PROG #### [facility] , #### T4F, TRISTEN, TSH3, A1C WTH eA, FILIBERTO, GLU, T3F #### [facility] [address] [place] [address] [place] Potassium [Moles/volume] in Serum or PlasmaOrdered By: Delano Francis on 09-22-2024 Potassium [Moles/Vol] 4.5 mmol/L Normal 3.5-5.1 [facility] Comment on above: Performed By: #### D HEAS, LC T4, [id number], SEROTON, TEST F + T, T3R, THYGLOB AB, ESTRADIOL, TPO, SHBG, ESTRONE, INSULIN, PROG #### [facility] , #### T4F, TRISTEN, TSH3, A1C WTH eA, FILIBERTO, GLU, T3F #### [facility] [address] [place] [address] [place] Potassium [Moles/Vol] Potassium [Moles/v olume] in Serum or Plasma 3.5-5.1 [facility] RBC Auto (Bld) [#/Vol]Ordere d By: Delano Francis on 09-22-2024 RBC (Bld) [#/Vol] Erythrocytes [#/volu me] in Blood by Automated count 3.60-5.00 [facility] Serum or plasma anion gap de terminationOrdered By: Delano Francis on 09-22-2024 Anion gap [Moles/Vol] 8.3 mmol/L Normal 6.0-15.0 [facility] Comment on above: Performed By: #### D HEAS, LC T4, [id number], SEROTON, TEST F + T, T3R, THYGLOB AB, ESTRADIOL, TPO, SHBG, ESTRONE, INSULIN, PROG #### [facility] , #### T4F, TRISTEN, TSH3, A1C WTH eA, FILIBERTO, GLU, T3F #### [facility] [address] Anion gap [Moles/Vol] Serum or plasma [...] Performed By: #### D VENITA, LC T4, [id number], SEROTON, TEST F + T, T3R, THYGLOB AB, ESTRADIOL, TPO, SHBG, ESTRONE, INSULIN, PROG #### [facility] , #### T4F, TRISTEN, TSH3, A1C WTH eA, FILIBERTO, GLU, T3F #### [facility] [address] Serum or plasma total choles terol/high density lipoprotein (HDL) cholesterol mass ratOrdered By: Delano Francis on 09-22-2024 Cholesterol.total/Alivia sterol in HDL [Mass ratio] 3.7 {ratio} Normal <5.0 [facility] Comment on above: Performed By: #### D VENITA, LC T4, [id number], SEROTON, TEST F + T, T3R, THYGLOB AB, ESTRADIOL, TPO, SHBG, ESTRONE, INSULIN, PROG #### [facility] , #### T4F, TRISTEN, TSH3, A1C WTH eA, FILIBERTO, GLU, T3F #### [facility] [address] Cholesterol.total/Alivia sterol in HDL [Mass ratio] Serum or plasma total cholesterol/high density lipoprotein (HDL) cholesterol mass rat <5.0 [facility] Sodium [Moles/volume] in Ser um or PlasmaOrdered By: Delano Francis on 09-22-2024 Sodium [Moles/Vol] 138 mmol/L Normal 136-145 [facility] Comment on above: Performed By: #### D HEJOSSE ROGERS T4, [id number], SEROTON, TEST F + T, T3R, THYGLOB AB, ESTRADIOL, TPO, SHBG, ESTRONE, INSULIN, PROG #### [facility] , #### T4F, TRISTEN, TSH3, A1C WTH eA, FILIBERTO, GLU, T3F #### [facility] [address] Sodium [Moles/Vol] Sodium [Moles/volume ] in Serum or Plasma 136-145 [facility] Thyrotropin [Units/volume] i n Serum or PlasmaOrdered By: Delano Francis on 09-22-2024 TSH Qn 2.30 m[IU]/L 0.45-5.33 [facility] TSH Qn Thyrotropin [Units/volume] in Serum or Plasma 0.45-5.33 [facility] Triglyceride [Mass/volume] i n Serum or PlasmaOrdered By: Delano Francis on 09-22-2024 Triglyceride [Mass/Vol] 52 mg/dL 0-149 [facility] Comment on above: TRIG ATP III CLASSIF [...] Urea nitrogen [Mass/Vol] 9 mg/dL Normal 7-25 [facility] Comment on above: Performed By: #### D HEAS, LC T4, [id number], SEROTON, TEST F + T, T3R, THYGLOB AB, ESTRADIOL, TPO, SHBG, ESTRONE, INSULIN, PROG #### [facility] , #### T4F, TRISTEN, TSH3, A1C WTH eA, FILIBERTO, GLU, T3F #### [facility] [address] Urea nitrogen [Mass/Vol] Urea nitrogen [Mass/volume] [...] <-Panic Low,>-Panic High,A-Abnormal,AA-Critical Abnormal Performed at: 01 =[address] [place] [address] Ilana Heath MD, HPV APTIMA Negative Negative [facility] Comment on above: This nucleic acid am plification test detects fourteen high- risk HPV types (16,18,31,33,35,39,45,51,52,56,58,59,66,68) without differentiation. Performed at: =[address], [place] [id number] [place]: Ilana Heath MD, Phone: [phone] Performed at: [address], [place] [id number] [place]: Ilana Heath MD, Phone: [phone] IGP, APTIMA HPV, RFX 16/18,45 Note . [facility] Comment on above: TESTS RESULT FLAG UN ITS REF RANGE LAB DIAGNOSIS: 02 NEGATIVE FOR INTRAEPITHELIAL LESION OR MALIGNANCY. Specimen adequacy: 02 Satisfactory for evaluation. No endocervical component is identified. Performed by: Peg Camargo, Well Drill Operator (ASCP) . 02 Note: Note 02 The [...] <-Panic Low,>-Panic High,A-Abnormal,AA-Critical Abnormal Performed at: [address] [address] Ilana Heath MD, BRUSH-SPATULA [facility]IX [facility] 1,25 Dihydroxy Vit D Calcitr olon 01-07-2024 1,25 Dihydroxy Vit D Calcitrol 56.6 pg/mL Normal 24.8-81.5 [facility] Comment on above: Result Comment: Perf ormed at: - [facility] [address] [id number] [place]: Quinton Wolf MD, Phone: [phone] Performed By: #### Adria NATHAN, LC T4, [id number], SEROTON, TEST F + T, T3R, THYGLOB AB, ESTRADIOL, TPO, SHBG, ESTRONE, INSULIN, PROG #### [facility] , #### T4F, TRISTEN, TSH3, A1C WTH eA, FILIBERTO, GLU, T3F #### [address] A1C with Estimated Average G destiny 01-07-2024 Glucose [Mass/Vol] 105 mg/dL Normal [facility] Comment on above: Result Comment: PERF ORMED BY: [place] [address] PATHOLOGIST DIRECTOR [employer] JOSE GOEL M.D. Performed By: #### D VENITA, LC T4, [id number], SEROTON, TEST F + T, T3R, THYGLOB AB, ESTRADIOL, TPO, SHBG, ESTRONE, INSULIN, PROG #### [facility] , #### T4F, TRISTEN, TSH3, A1C WTH eA, FILIBERTO, GLU, T3F #### [address] Antithyroglobulin Abon 01-07 Antithyroglobulin Ab <1.0 Normal 0.0-0.9 [facility] Comment on above: Result Comment: Thyr oglobulin Antibody measured by Helga [place] Method[employer] Performed at: [facility] [address] [id number] [place]: Baudilio Leyva PhD, Phone: [phone] Performed By: #### D VENITA, LC T4, [id number], SEROTON, TEST F + T, T3R, THYGLOB AB, ESTRADIOL, TPO, SHBG, ESTRONE, INSULIN, PROG #### [facility] , #### T4F, TRISTEN, TSH3, A1C WTH eA, FILIBERTO, GLU, T3F #### [address] Cortisolon 01-07-2024 Cortisol 6.8 ug/dL Normal [facility] Comment on above: Result Comment: Refe rence range: AM 6 - 24 ug/dl PM <10 ug/dl [facility] Laboratory stylist assistant and method: HELGA UNICEL DXI, POLYCLONAL ANTIBODY CORTISOL ASSAY. PERFORMED BY: [place] [address] PATHOLOGIST DIRECTOR [employer] JOSE GOEL M.D. Performed By: #### D VENITA, LC T4, [id number], SEROTON, TEST F + T, T3R, THYGLOB AB, ESTRADIOL, TPO, SHBG, ESTRONE, INSULIN, PROG #### [facility] , #### T4F, TRISTEN, TSH3, A1C WTH eA, FILIBERTO, GLU, T3F #### [address] Dehydroepiandrosterone Sulfa teOrdered By: Deisy Villar on 01-07-2024 Dehydroepiandrosterone Sulfate 174.0 ug/dL Normal 84.8-378.0 [facility] Comment on above: Performed By: #### D HEAS, LC T4, [id number], SEROTON, TEST F + T, T3R, THYGLOB AB, ESTRADIOL, TPO, SHBG, ESTRONE, INSULIN, PROG #### [facility] , #### T4F, TRISTEN, TSH3, A1C WTH eA, FILIBERTO, GLU, T3F #### [facility] [address] [place] [address] [facility] Estradiolon 01-07-2024 Estradiol 300.0 pg/mL Normal . [facility] Comment on above: Result Comment: Adul t Female Range Follicular phase 12.5 - 166.0 Ovulation phase 85.8 - 498.0 Luteal phase 43.8 - 211.0 Postmenopausal <6.0 - 54.7 1st trimester 215.0 - >4300.0 Elías ECLIA methodology Performed By: #### D HEAS, LC T4, [id number], SEROTON, TEST F + T, T3R, THYGLOB AB, ESTRADIOL, TPO, SHBG, ESTRONE, INSULIN, PROG #### [facility] , #### T4F, TRISTEN, TSH3, A1C WTH eA, FILIBERTO, GLU, T3F #### [facility] [address] [id number] [place] Estrone, Serumon 01-07-2024 Estrone, Serum 46 pg/mL Normal 27-231 [facility] Comment on above: Result Comment: Rang e Adult (Premenopausal) 27 - 231 Menstrual Cycle (1-10 days) 19 - 149 Menstrual Cycle (11-20 days) 32 - 176 Menstrual Cycle (21-30 days) 37 - 200 Performed at: [address] [id number] [place]: Quinton Wolf MD, Phone: [phone] Performed By: #### D HEAS, LC T4, [id number], SEROTON, TEST F + T, T3R, THYGLOB AB, ESTRADIOL, TPO, SHBG, ESTRONE, INSULIN, PROG #### [facility] , #### T4F, TRISTEN, TSH3, A1C WTH eA, FILIBERTO, GLU, T3F #### [facility] [address] Ferritin [Mass/volume] in Se rum or PlasmaOrdered By: Deisy Villar on 01-07-2024 Ferritin [Mass/Vol] 44.8 ng/mL Normal 11.0-306.8 [facility] Comment on above: Performed By: #### D HEAS, LC T4, [id number], SEROTON, TEST F + T, T3R, THYGLOB AB, ESTRADIOL, TPO, SHBG, ESTRONE, INSULIN, PROG #### [facility] , #### T4F, TRISTEN, TSH3, A1C WTH eA, FILIBERTO, GLU, T3F #### [facility] [address] Free testosterone measuremen t by LC-MS/MSOrdered By: Deisy Villar on 01-07-2024 Testosterone Free [Mass/Vol] 0.3 pg/mL 0.0-4.2 [facility] Comment on above: Performed at: [employer] [address] [id number] Director: Baudilio Leyva PhD, Phone: [phone] at: - [facility] [id number] Director: Quinton Wolf MD, Phone: [phone] Glucose [Mass/volume] in Ser um or PlasmaOrdered By: Deisy Villar on 01-07-2024 Glucose [Mass/Vol] 84 mg/dL Normal 70-100 [facility] Comment on above: ADA recommended refe rence rangeRandom Glucose Reference Range is dependent on time and content of last meal. Glucose of more than 200 mg/dL in a nonstressed, ambulatory subject supports the diagnosis of Diabetes Mellitus. Result Comment: [place] om Glucose Reference Range is dependent on time and content of last meal. Glucose of more than 200 mg/dL in a nonstressed, ambulatory subject supports the diagnosis of Diabetes Mellitus. ADA recommended reference range Performed By: #### D HEAS, LC T4, [id number], SEROTON, TEST F + T, T3R, THYGLOB AB, ESTRADIOL, TPO, SHBG, ESTRONE, INSULIN, PROG #### [facility] , #### T4F, TRISTEN, TSH3, A1C WTH eA, FILIBERTO, GLU, T3F #### [address] Glucose mean value [Mass/vol ume] in [...] adults with diabetes: <7.0 Performed By: #### JOSSE SMITH T4, [id number], SEROTON, TEST F + T, T3R, THYGLOB AB, ESTRADIOL, TPO, SHBG, ESTRONE, INSULIN, PROG #### [facility] , #### T4F, TRISTEN, TSH3, A1C WTH eA, FILIBERTO, GLU, T3F #### [address] Insulinon 01-07-2024 Insulin 4.5 u[iU]/mL Normal 2.6-24.9 [facility] Comment on above: Result Comment: Perf ormed at: - [facility] [address] [id number] [place] Tar: Baudilio Leyva PhD, Phone: [phone] Performed By: #### JOSSE SMITH T4, [id number], SEROTON, TEST F + T, T3R, THYGLOB AB, ESTRADIOL, TPO, SHBG, ESTRONE, INSULIN, PROG #### [facility] , #### T4F, TRISTEN, TSH3, A1C WTH eA, FILIBERTO, GLU, T3F #### [facility] [address] [id number] [facility] Alie Thyroxine (T4)on T4 [Mass/Vol] 8.2 ug/dL Normal 4.5-12.0 [facility] Comment on above: Performed By: #### D HEAS, LC T4, [id number], SEROTON, TEST F + T, T3R, THYGLOB AB, ESTRADIOL, TPO, SHBG, ESTRONE, INSULIN, PROG #### [facility] , #### T4F, TRISTEN, TSH3, A1C WTH eA, FILIBERTO, GLU, T3F #### [facility] [address] No Panel InformationOrdered By: Deisy Villar on 01-07-2024 Free Thyroxine (T4) Direct 8.2 ug/dL 4.5-12.0 [facility] Reverse Triiodothyronine (T3) 18.9 ng/dL 9.2-24.1 [facility] Comment on above: This test was develo ped and its performance characteristicsdetermined by [employer]. It has not been cleared orapproved by the Food and Drug Administration.Performed at: [facility] [employer] [id number] Director: Quinton Wolf MD, Phone: [phone] Sex Hormone Binding Globulin 95.4 nmol/L 24.6-122.0 [facility] Comment on above: Performed at: [address] [id number] Director: Baudilio Leyva PhD, Phone: [phone] Plasma serotonin measurement (mass/volume)Ordered By: Deisy Villar on 01-07-2024 Serotonin (P) [Mass/Vol] 71 ng/mL 31-207 [facility] Comment on above: This test was develo ped and its performance characteristicsdetermined by [employer]. It has not been cleared orapproved by the Food and Drug Administration.Performed at: [address] [id number] Director: Quinton Wolf MD, Phone: [phone] Progesteroneon 01-07-2024 Progesterone 0.2 ng/mL Normal . [facility] Comment on above: Result Comment: Foll icular phase 0.1 - 0.9 Luteal phase 1.8 - 23.9 Ovulation phase 0.1 - 12.0 First trimester 11.0 - 44.3 Second trimester 25.4 - 83.3 Third trimester 58.7 - 214.0 Postmenopausal 0.0 - 0.1 Performed By: #### D VENITA, LC T4, [id number], SEROTON, TEST F + T, T3R, THYGLOB AB, ESTRADIOL, TPO, SHBG, ESTRONE, INSULIN, PROG #### [facility] , #### T4F, TRISTEN, TSH3, A1C WTH eA, FILIBERTO, GLU, T3F #### [address] Random cortisol measurementO rdered By: Deisy Villar on 01-07-2024 Cortisol [Mass/Vol] 6.8 ug/dL [facility] Comment on above: [facility] Laboratory stylist assistant and method:Tomo ClasesEL DXI, POLYCLONAL ANTIBODY CORTISOL ASSAY.Reference range: AM 6 - 24 ug/dl PM <10 ug/dl Serotonin, Serumon 4 Serotonin, Serum 71 ng/mL Normal 31-207 [facility] Comment on above: Result Comment: This test was developed and its performance characteristics determined by [facility]. It has not been cleared or approved by the Food and Drug Administration. Performed at: [address] [id number] [place] Tar: Quinton Wolf MD, Phone: [phone] PERFORMED BY: [place] [address] PATHOLOGIST DIRECTOR [employer] JOSE GOEL M.D. Performed By: #### D VENITA, LC T4, [id number], SEROTON, TEST F + T, T3R, THYGLOB AB, ESTRADIOL, TPO, SHBG, ESTRONE, INSULIN, PROG #### [facility] , #### T4F, TRISTEN, TSH3, A1C WTH eA, FILIBERTO, GLU, T3F #### [facility] [address] Serum estrone measurementOrd ered By: Deisy Villar on 01-07-2024 E1 [Mass/Vol] 46 pg/mL 27-231 [facility] Comment on above: Range Adult (Premeno pausal) 27 - 231 Menstrual Cycle (1-10 days) 19 - 149 Menstrual Cycle (11-20 days) 32 - 176 Menstrual Cycle (21-30 days) 37 - 200Performed at: [facility] [address] [id number] Director: Quinton Wolf MD, Phone: [phone] Serum or plasma calcitriol m easurement (mass/volume)Ordered By: Deisy Villar on 01-07-2024 1,25-dihydroxyvitamin D3 [Mass/Vol] 56.6 pg/mL 24.8-81.5 [facility] Comment on above: Performed at: [employer] [address] [id number] Director: Quinton Wolf MD, Phone: [phone] Serum or plasma estradiol (E 2) measurement [...] [facility] Comment on above: Performed at: [employer] [facility] [employer] [address] [id number] Director: Baudilio Leyva PhD, Phone: [phone] Serum or plasma progesterone measurement (mass/volume)Ordered By: Deisy Villar on 01-07-2024 Progesterone [Mass/Vol] 0.2 ng/mL . [facility] Comment on above: Follicular phase 0.1 - 0.9 Luteal phase 1.8 - 23.9 Ovulation phase 0.1 - 12.0 First trimester 11.0 - 44.3 Second trimester 25.4 - 83.3 Third trimester 58.7 - 214.0 Postmenopausal 0.0 - 0.1 Serum or plasma thyroglobuli n antibody assay (units/volume)Ordered By: Deisy Villar on 01-07-2024 Thyroglobulin Ab Qn [IU]/mL 0.0-0.9 [facility] Comment on above: Thyroglobulin Antibo dy measured by FraxionMethodologyPerformed at: [address] [id number] Director: Baudilio Leyva PhD, Phone: [phone] Serum or plasma thyroperoxid ase antibody assay (units/volume)Ordered By: Deisy Villar on 01-07-2024 TPO Ab Qn [IU]/mL 0-34 [facility] Comment on above: Performed at: [facility] [address] [id number] Director: Baudilio Leyva PhD, Phone: [phone] Sex Hormone Binding Globulin on 01-07-2024 Sex Hormone Binding Globulin 95.4 Normal 24.6-122.0 [facility] Comment on above: Result Comment: Perf ormed at: [facility] [employer] [id number] [place] Tar: Baudilio Leyva PhD, Phone: [phone] Performed By: #### JOSSE SMITH T4, [id number], SEROTON, TEST F + T, T3R, THYGLOB AB, ESTRADIOL, TPO, SHBG, ESTRONE, INSULIN, PROG #### [facility] , #### T4F, TRISTEN, TSH3, A1C WTH eA, FILIBERTO, GLU, T3F #### [address] Testosterone Free and TotalO rdered By: Deisy Villar on 01-07-2024 Testosterone [Mass/Vol] 16 ng/dL Normal 8-60 [facility] Comment on above: Performed By: #### D HEAS, LC T4, [id number], SEROTON, TEST F + T, T3R, THYGLOB AB, ESTRADIOL, TPO, SHBG, ESTRONE, INSULIN, PROG #### [facility] , #### T4F, TRISTEN, TSH3, A1C WTH eA, FILIBERTO, GLU, T3F #### [address] Testosterone Free and Totalo n 01-07-2024 Testosterone,Free 0.3 pg/mL Normal 0.0-4.2 [facility] Comment on above: Result Comment: Perf ormed at: [address] [id number] [place] Tar: Baudilio Leyva PhD, Phone: [phone] Performed at: [address] [id number] [place] Tar: Quinton Wolf MD, Phone: [phone] Performed By: #### D HEAS, LC T4, [id number], SEROTON, TEST F + T, T3R, THYGLOB AB, ESTRADIOL, TPO, SHBG, ESTRONE, INSULIN, PROG #### [facility] , #### T4F, TRISTEN, TSH3, A1C WTH eA, FILIBERTO, GLU, T3F #### [address] Thyroid Peroxidase Antibodie son 01-07-2024 Thyroid Peroxidase Antibodies <9 Normal 0-34 [facility] Comment on above: Result Comment: Perf ormed at: [address] [id number] [place] Tar: Baudilio Leyva PhD, Phone: [phone] Performed By: #### D HEAS, LC T4, [id number], SEROTON, TEST F + T, T3R, THYGLOB AB, ESTRADIOL, TPO, SHBG, ESTRONE, INSULIN, PROG #### [facility] , #### T4F, TRISTEN, TSH3, A1C WTH eA, FILIBERTO, GLU, T3F #### [address] Thyrotropin [Units/volume] i n Serum or PlasmaOrdered By: Deisy Villar on 01-07-2024 TSH Qn 1.80 m[IU]/L Normal 0.45-5.33 [facility] Comment on above: Performed By: #### D HEAS, LC T4, [id number], SEROTON, TEST F + T, T3R, THYGLOB AB, ESTRADIOL, TPO, SHBG, ESTRONE, INSULIN, PROG #### [facility] , #### T4F, TRISTEN, TSH3, A1C WTH eA, FILIBERTO, GLU, T3F #### [address] Thyroxine (T4) free [Mass/vo lume] in Serum or PlasmaOrdered By: Deisy Villar on 01-07-2024 Free T4 [Mass/Vol] 0.88 ng/dL Normal 0.61-1.12 [facility] Comment on above: Performed By: #### D HEAS, LC T4, [id number], SEROTON, TEST F + T, T3R, THYGLOB AB, ESTRADIOL, TPO, SHBG, ESTRONE, INSULIN, PROG #### [facility] , #### T4F, TRISTEN, TSH3, A1C WTH eA, FILIBERTO, GLU, T3F #### [place] [address] [place] Triiodothyronine (T3) Freeon 01-07-2024 Triiodothyronine (T3) Free 3.90 pg/mL Normal 2.50-3.90 [facility] Comment on above: Result Comment: PERF ORMED BY: [place] [address] PATHOLOGIST DIRECTOR [employer] JOSE GOEL M.D. Performed By: #### D HEAS, LC T4, [id number], SEROTON, TEST F + T, T3R, THYGLOB AB, ESTRADIOL, TPO, SHBG, ESTRONE, INSULIN, PROG #### [facility] , #### T4F, TRISTEN, TSH3, A1C WTH eA, FILIBERTO, GLU, T3F #### [facility] [address] [id number] [facility] Triiodothyronine (T3) Free [ Mass/volume] in Serum or PlasmaOrdered By: Deisy Villar on 01-07-2024 Free T3 [Mass/Vol] 3.90 pg/mL 2.50-3.90 [facility] Triiodothyronine (T3) Revers lonnie 01-07-2024 Triiodothyronine (T3) Reverse 18.9 ng/dL Normal 9.2-24.1 [facility] Comment on above: Result Comment: This test was developed and its performance characteristics determined by [employer]. It has not been cleared or approved by the Food and Drug Administration. Performed at: [facility] [address] [id number] [place] Tar: Quinton Wolf MD, Phone: [phone] Performed By: #### D JOSSE NATHAN T4, [id number], SEROTON, TEST F + T, T3R, THYGLOB AB, ESTRADIOL, TPO, SHBG, ESTRONE, INSULIN, PROG #### [facility] , #### T4F, TRISTEN, TSH3, A1C WTH eA, FILIBERTO, GLU, T3F #### [facility] [address] [id number] [facility] Alanine aminotransferase [En zymatic activity/volume] [...] Basophils/100 WBC (Bld) 0.4 % . [facility] Bilirubin.total [Mass/volume ] in Serum or PlasmaOrdered By: Delano Francis on 09-17-2023 Bilirubin [Mass/Vol] 0.7 mg/dL 0.3-1.0 [facility] Calcium [Mass/volume] in Ser um or PlasmaOrdered By: Delano Francis on 09-17-2023 Calcium [Mass/Vol] 9.4 mg/dL 8.6-10.3 [facility] Carbon dioxide, total [Moles /volume] in Serum or PlasmaOrdered By: Delano Francis on 09-17-2023 CO2 [Moles/Vol] 26.2 mmol/L 21.0-31.0 [facility] Chloride [Moles/volume] in S stevo or PlasmaOrdered By: Delano Francis on 09-17-2023 Chloride [Moles/Vol] 102 mmol/L 98-107 [facility] Cholesterol [Mass/volume] in Serum or PlasmaOrdered By: Delano Francis on 09-17-2023 Cholesterol [Mass/Vol] 214 mg/dL 140-200 [facility] Comment on above: Chol less than [...] on 09-17-2023 Creatinine [Mass/Vol] 0.79 mg/dL 0.60-1.20 [facility] Eosinophils Auto (Bld) [#/Vo l]Ordered By: [...] on 09-17-2023 Globulin (S) [Mass/Vol] 2.5 g/dL [facility] Glucose [Mass/volume] in Ser um or PlasmaOrdered By: Delano Francis on 09-17-2023 Glucose [Mass/Vol] 75 mg/dL 70-100 [facility] Hematocrit Auto (Bld) [Volum e fraction]Ordered [...] MCHC (RBC) [Mass/Vol] 34.4 g/dL 32.0-35.0 [facility] MCV Auto (RBC) [Entitic vol] Ordered By: Delano Francis on 09-17-2023 MCV (RBC) [Entitic vol] 92.5 fL 80-100 [facility] Monocytes Auto (Bld) [#/Vol] Ordered By: Delano Francis on 09-17-2023 Monocytes (Bld) [#/Vol] 0.5 10*3/uL 0.0-0.8 [facility] Monocytes/100 WBC Auto (Bld) Ordered By: Delano Francis on 09-17-2023 Monocytes/100 WBC (Bld) 9.2 % . [facility] Neutrophils Auto (Bld) [#/Vo l]Ordered By: [...] on 09-17-2023 Potassium [Moles/Vol] 4.0 mmol/L 3.5-5.1 [facility] Protein [Mass/volume] in Ser um or PlasmaOrdered By: Delano Francis on 09-17-2023 Protein [Mass/Vol] 6.8 g/dL 6.4-8.9 [facility] RBC Auto (Bld) [#/Vol]Ordere d By: Delano Francis on 09-17-2023 RBC (Bld) [#/Vol] 3.70 10*6/uL 3.60-5.00 [facility] Serum or plasma albumin/glob ulin mass ratioOrdered By: Delano Francis on 09-17-2023 Albumin/Globulin [Mass ratio] 1.7 {ratio} [facility] Serum or plasma anion gap de terminationOrdered By: Delano Francis on 09-17-2023 Anion gap [Moles/Vol] 10.8 mmol/L 6.0-15.0 [facility] Serum or plasma high density lipoprotein (HDL) cholesterol measurementOrdered By: Delano Francis on 09-17-2023 Cholesterol in HDL [Mass/Vol] 43 mg/dL 23-92 [facility] Comment on above: [...] on 09-17-2023 Sodium [Moles/Vol] 135 mmol/L 136-145 [facility] Thyrotropin [Units/volume] i n Serum or PlasmaOrdered By: Delano Francis on 09-17-2023 TSH Qn 1.04 m[IU]/L 0.45-5.33 [facility] Triglyceride [Mass/volume] i n Serum or PlasmaOrdered By: Delano Francis on 09-17-2023 Triglyceride [Mass/Vol] 48 mg/dL 0-149 [facility] Comment on above: TRIG ATP III CLASSIF ICATIONTRIG less than 150 mg/dL NormalTRIG 150-199 mg/dL Borderline highTRIG 200-500 mg/dL High TRIG greater than 500 mg/dL Very highStandard traceable to the Center for Disease Conrtrol and Prevention (CDC) test method. Urea nitrogen [Mass/volume] in Serum or PlasmaOrdered By: Delano Francis on 09-17-2023 Urea nitrogen [Mass/Vol] 7 mg/dL 7-25 [facility] WBC Auto (Bld) [#/Vol]Ordere d By: Delano Francis on 09-17-2023 WBC (Bld) [#/Vol] 5.9 10*3/uL 3.8-11.6 [facility] Mononucleosis Test, Qualon 1 Heterophile Ab LA Ql (S) Negative [employer] Other Quick Strepon 09-26-2022 S. pyogenes Org specific cx Ql (Throat) Negative [employer] Other Quick Strep [employer] Other SARS-CoV-2 (COVID-19) RNA NA A+probe Ql (Resp)on 09-26-2022 SARS-CoV-2 (COVID-19) RNA ROB+probe Ql (Unsp spec) Negative [employer] Other PAP ACOG PANEL 2: 30 to 65on 09-01-2022 . . Normal [facility] Comment on above: Result Comment: Perf ormed at: WB Performed By: #### [id number] #### [facility] [address] [place] [address] Dr. Zonia Zhang Age Gdln ACOG Testing 30-65 Normal [facility] Comment on above: Performed By: #### [id number] #### [facility] [address] [address] [address] Zonia Zhang DIAGNOSIS: Comment Normal [facility] Comment on above: Result Comment: NEGA TIVE FOR INTRAEPITHELIAL LESION OR MALIGNANCY. Performed at: WB Performed By: #### 4 [id number] #### [facility] [address] [place] [address] Dr. Zonia Zhang HPV Aptima Negative Normal Negative [facility] Comment on above: Result Comment: This nucleic acid amplification test detects fourteen high-risk HPV types (16,18,31,33,35,39,45,51,52,56,58,59,66,68) without differentiation. Performed at: =G Performed By: #### [id number] #### [facility] [address] [place] [address] Dr. Zonia Zhang Methodology: Comment [facility] Comment on above: Result Comment: This liquid based ThinPrep(R) pap test was screened with the use of an image guided system. Performed at: WB Performed By: #### 4 [id number] #### [facility] [address] [place] [address] Dr. Zonia Zhang Note: Comment [facility] Comment on above: Result Comment: The Pap smear is a screening test designed to aid in the detection of premalignant and malignant conditions of the uterine cervix. It is not a diagnostic procedure and should not be used as the sole means of detecting cervical cancer. Both false-positive and false-negative reports do occur. . Performed at: WB Performed By: #### 4 [id number] #### [facility] [address] [place], [place] [id number] Dr. Zonia Zhang Performed by: Comment Normal [facility] Comment on above: Result Comment: Negin Tomas, Well Drill Operator (ASCP) Performed at: WB Performed By: #### 4 [id number] #### [facility] [address] [place], [place] [address] Dr. Zonia Zhang Specimen adequacy: Comment Normal [facility] Comment on above: Result Comment: Sati sfactory for evaluation. Endocervical and/or squamous metaplastic cells (endocervical component) are present. Performed at: WB Performed By: #### 4 [id number] #### [facility] [address] [address] [address] Zonia Zhang Basophils Auto (Bld) [#/Vol] Ordered By: Delano Francis on 08-07-2022 Basophils (Bld) [#/Vol] 0.0 10*3/uL 0.0-0.2 [facility] Basophils/100 WBC Auto (Bld) Ordered By: Delano Francis on 08-07-2022 Basophils/100 WBC (Bld) 0.5 % . [facility] Blood hemoglobin measurement (mass/volume)Ordered By: Delano Francis on 08-07-2022 Hemoglobin (Bld) [Mass/Vol] 12.7 g/dL 11.8-15.4 [facility] Blood leukocytes automated c ount (number/volume)Ordered By: Delano Francis on 08-07-2022 WBC (Bld) [#/Vol] 5.0 10*3/uL 4.5-11.0 [facility] Body fluid albumin measureme nt (mass/volume)Ordered By: Delano Francis on 08-07-2022 Albumin (Body fld) [Mass/Vol] 4.1 g/dL 3.2-5.5 [facility] Cholesterol [Mass/volume] in Serum or PlasmaOrdered By: Delano Francis on 08-07-2022 Cholesterol [Mass/Vol] 253 mg/dL 140-200 [facility] Comment on above: Chol less than [...] on 08-07-2022 Creatinine [Mass/Vol] 0.76 mg/dL 0.44-1.03 [facility] Eosinophils Auto (Bld) [#/Vo l]Ordered By: [...] 08-07-2022 Globulin (S) [Mass/Vol] 2.3 g/dL [facility] Hematocrit Auto (Bld) [Volum e fraction]Ordered By: Delano Francis on 08-07-2022 Hematocrit (Bld) [Volume fraction] 37.5 % 34.0-46.4 [facility] - Chemistry and C hemistry - challengeOrdered By: Delano Francis on 08-07-2022 Glucose [Mass/Vol] 88 mg/dL 70-100 [facility] - Hematology and Cell countsOrdered [...] 08-07-2022 MCHC (RBC) [Mass/Vol] 33.8 g/dL 32.0-35.0 [facility] MCV Auto (RBC) [Entitic vol] Ordered By: Delano Francis on 08-07-2022 MCV (RBC) [Entitic vol] 94.3 fL 80-100 [facility] Monocyte %Ordered By: Delano Francis on [...] Monocytes/100 WBC (Bld) 10.1 % . [facility] Neutrophils Auto (Bld) [#/Vo l]Ordered By: [...] chronic kidney disease. Nicotine Metabolite Negative Cutoff=25 [facility] Comment on above: Performed at: - [address] [id number] Director: Quinton Wolf MD, Phone: [phone] Pharmacy Creatinine Clearance (Chem N/A [facility] [...] on 08-07-2022 Protein [Mass/Vol] 6.4 g/dL 6.1-7.9 [facility] RBC Auto (Bld) [#/Vol]Ordere d By: Delano Fracnis on 08-07-2022 RBC (Bld) [#/Vol] 3.97 10*6/uL 3.60-5.00 [facility] Serum or plasma alanine troy [...] 08-07-2022 Anion gap [Moles/Vol] 11.7 mmol/L 6.0-15.0 [facility] Serum or plasma aspartate am inotransferase measurement (enzymatic activity/volume)Ordered By: Delano Francis on 08-07-2022 AST [Catalytic activity/Vol] 15 U/L 10-42 [facility] Serum or plasma calcium kevin urement (mass/volume)Ordered By: Delano Francis on 08-07-2022 Calcium [Mass/Vol] 9.8 mg/dL 8.2-10.2 [facility] Serum or plasma chloride ra surement (moles/volume)Ordered By: Delano Francis on 08-07-2022 Chloride [Moles/Vol] 101 mmol/L 95-114 [facility] Serum or plasma high density lipoprotein [...] on 08-07-2022 Potassium [Moles/Vol] 4.4 mmol/L 3.5-5.1 [facility] Serum or plasma sodium measu rement (moles/volume)Ordered By: Delano Francis on 08-07-2022 Sodium [Moles/Vol] 136 mmol/L 136-146 [facility] Serum or plasma total biliru bin measurement (mass/volume)Ordered By: Delano Francis on 08-07-2022 Bilirubin [Mass/Vol] 1.0 mg/dL 0.3-1.2 [facility] Serum or plasma total carbon dioxide measurement (moles/volume)Ordered By: Delano Francis on 08-07-2022 CO2 [Moles/Vol] 27.7 mmol/L 22.0-30.0 [facility] Serum or plasma total choles terol/high density lipoprotein (HDL) cholesterol mass ratOrdered By: Delano Francis on 08-07-2022 Cholesterol.total/Alivia sterol in HDL [Mass ratio] 4.2 {ratio} <5.0 [facility] Serum or plasma urea nitroge n measurement (mass/volume)Ordered By: Delano Francis on 08-07-2022 Urea nitrogen [Mass/Vol] 9 mg/dL 9-23 [facility] TSH DL <= 0.005 mIU/L QnOrde red By: Delano Francis on 08-07-2022 TSH Qn 1.43 m[IU]/L 0.45-5.33 [facility] T3, TOTAL (TRIIODOTHYRONINE) on 06-07-2022 T3, TOTAL 88 ng/dL Normal 71-180 [facility] Comment on above: Performed By: #### T 3TOTAL #### [facility] [address] [place] [address] Dr. Zonia Zhang FREE T4on 06-06-2022 Free T4 [Mass/Vol] 0.94 ng/dL Normal 0.76-1.[address] [facility] Comment on above: Performed By: #### F T4 #### [facility] [address] [place] [address] Dr. Zonia Zhang TSHon 06-06-2022 TSH 1.364 uIU/mL Normal 0.358-3.74 0 [facility] Comment on above: Performed By: #### T SH #### [facility] [address] [place] [address] Dr. Zonia Zhang COVID Quick Testingon 2021 Result Positive [employer] Other Quick Fluon 12-27-2021 FLUAV Ab CF (S) [Titer] Negative N [facility] Other FLUBV Ab CF (S) [Titer] Negative [facility] Other Vital Signs Date Time Vital Sign Value Performing Clinician Facility 05-30-2025 09:10-0400 Body mass index (BMI) [Ratio] 35.52 kg/m2 Ángel Sita DO Work Phone: [facility] 05-30-2025 09:10-0400 Body weight 102.88 kg Ángel Sita DO Work Phone: [facility] 05-30-2025 09:10-0400 Diastolic blood pressure 78 mm[Hg] Ángel Sita DO Work Phone: [facility] 05-30-2025 09:10-0400 Systolic blood pressure 120 mm[Hg] Ángel Sita DO Work Phone: [facility] 05-01-2025 08:36-0400 Body mass index (BMI) [Ratio] 34.43 kg/m2 Deisy MUNOZ Work Phone: [facility] 05-01-2025 08:36-0400 Body weight 99.7 kg Deisy Villar PA Work Phone: [facility] 05-01-2025 08:36-0400 Diastolic blood pressure 74 mm[Hg] Deisy Adithya PA Work Phone: [facility] 05-01-2025 08:36-0400 Systolic blood pressure 118 mm[Hg] Deisy Adithya PA Work Phone: [facility] 03-30-2025 10:28-0400 Body mass index (BMI) [Ratio] 32.89 kg/m2 Ángel Sita DO Work Phone: [facility] 03-30-2025 10:28-0400 Body weight 95.25 kg Ángel Sita DO [facility]: [facility] [facility] 03-30-2025 10:28-0400 Diastolic blood pressure 84 mm[Hg] Ángel Siat DO Work Phone: [facility] 03-30-2025 10:28-0400 Systolic blood pressure 120 mm[Hg] Ángel Sita DO Work Phone: [facility] 03-02-2025 09:58-0400 Body mass index (BMI) [Ratio] 31.76 kg/m2 Deisy Villar PA Work Phone: [facility] 03-02-2025 09:58-0400 Body weight 91.99 kg Deisy Villar PA Work Phone: [facility] 03-02-2025 09:58-0400 Diastolic blood pressure 72 mm[Hg] Deisy Adithya PA Work Phone: [facility] 03-02-2025 09:58-0400 Systolic blood pressure 120 mm[Hg] Deisy Adithya PA Work Phone: [facility] 02-02-2025 09:25-0500 Body mass index (BMI) [Ratio] 30.54 kg/m2 Ángel Sita DO Work Phone: [facility] 02-02-2025 09:25-0500 Body weight 88.45 kg Ángel Sita DO Work Phone: [facility] 02-02-2025 09:25-0500 Diastolic blood pressure 70 mm[Hg] Ángel Sita DO Work Phone: [facility] 02-02-2025 09:25-0500 Systolic blood pressure 120 mm[Hg] Ángel Sita DO Work Phone: [facility] 10-18-2024 11:19-0500 Body height 170.18 cm [...] 28.79 kg/m2 Ángel Sita DO Work Phone: [facility] 09-13-2024 14:28-0400 Body weight 83.37 kg Ángel Sita DO Work Phone: [facility] 09-13-2024 14:28-0400 Diastolic blood pressure 70 mm[Hg] Ángel Sita DO Work Phone: [facility] 09-13-2024 14:28-0400 Systolic blood pressure 120 mm[Hg] Ángel Sita DO Work Phone: [facility] 05-03-2024 14:40-0400 Body height 170.18 cm [facility] 05-03-2024 14:40-0400 Body mass index (BMI) [Ratio] 28.3 kg/m2 [facility] 05-03-2024 14:40-0400 Body weight 82.1 kg [facility] 05-03-2024 14:40-0400 Diastolic blood pressure 82 mm[Hg] [facility] 05-03-2024 14:40-0400 Heart rate 78 /min [facility] 05-03-2024 14:40-0400 SaO2% (BldA) [Mass fraction] 98 % [facility] 05-03-2024 14:40-0400 Systolic blood pressure 122 mm[Hg] [facility] 01-06-2024 14:20-0500 Body height 170.2 cm Deisy Villar PA Work Phone: [facility] 01-06-2024 14:20-0500 Body mass index (BMI) [Ratio] 28.05 kg/m2 Deisy Streator PA Work Phone: [facility] 01-06-2024 14:20-0500 Body weight 81.25 kg Deisy Streator PA Work Phone: [facility] 01-06-2024 14:20-0500 Diastolic blood pressure 70 mm[Hg] Deisy Adithya PA Work Phone: [facility] 01-06-2024 14:20-0500 Systolic blood pressure 120 mm[Hg] Deisy Streator PA Work Phone: [facility] 10-02-2023 10:00-0400 Body height 170.18 cm Robles Ball Other [employer] [facility] [employer] Other 10-02-2023 10:00-0400 Body mass index (BMI) [Ratio] 29.38 kg/m2 Robles Ball Other [employer] [facility] [employer] Other 10-02-2023 10:00-0400 Body weight 85.1 kg Robles Ball Other [employer] Other 10-02-2023 10:00-0400 Diastolic blood pressure 83 mm[Hg] Robles Ball Other [employer] Other 10-02-2023 10:00-0400 Respiratory rate 12 /min Robles Ball Other [employer] Other 10-02-2023 10:00-0400 Systolic blood pressure 131 mm[Hg] Robles Ball Other [employer] Other 01-22-2023 10:30-0500 Body height 170.18 cm Robles Ball Other [employer] Other 01-22-2023 10:30-0500 Body mass index (BMI) [Ratio] 29.91 kg/m2 Robles Ball Other [employer] Other 01-22-2023 10:30-0500 Body weight 86.64 kg Robles Ball Other [employer] Other 01-22-2023 10:30-0500 Diastolic blood pressure 72 mm[Hg] Robles Ball Other [employer] Other 01-22-2023 10:30-0500 Respiratory rate 16 /min Robles Ball Other [employer] Other 01-22-2023 10:30-0500 Systolic blood pressure 122 mm[Hg] Robles Ball Other [employer] Other 09-26-2022 16:10-0400 Body height 170.18 cm Kiya Schaffer Other [employer] Other 09-26-2022 16:10-0400 Body mass index (BMI) [Ratio] 29.29 kg/m2 Kiya Schaffer Other [employer] Other 09-26-2022 16:10-0400 Body temperature 98.8 [degF] Kiya Schaffer Other [employer] Other 09-26-2022 16:10-0400 Body weight 84.82 kg Kiya Schaffer Other [employer] Other 09-26-2022 16:10-0400 Diastolic blood pressure 73 mm[Hg] Kiya Schaffer Other [employer] Other 09-26-2022 16:10-0400 Respiratory rate 18 /min Kiya Schaffer Other [employer] Other 09-26-2022 16:10-0400 SaO2% (BldA) [Mass fraction] 97 % Kiya Schaffer Other [employer] Other 09-26-2022 16:10-0400 Systolic blood pressure 125 mm[Hg] Kiya Schaffer Other [employer] Other 12-27-2021 10:15-0500 Body height 170.18 cm Elsi Mayer Other [employer] Other 12-27-2021 10:15-0500 Body mass index (BMI) [Ratio] 28.19 kg/m2 Elsi Mayer Other [employer] Other 12-27-2021 10:15-0500 Body temperature 100.3 [degF] Elsi Mayer Other [employer] Other 12-27-2021 10:15-0500 Body weight 81.65 kg Elsi Mayer Other [employer] Other 12-27-2021 10:15-0500 Respiratory rate 18 /min Elsi Mayer Other [employer] Other 12-27-2021 10:15-0500 SaO2% (BldA) [Mass fraction] 98 % Elsi Mayer Other [employer] Other Encounters Encounter Date Encounter Type Care Provider Facility Start: 05-30-2025 End: 05-30-2025 Bamboo flowsheet Ángel Sita DO Work Phone: [facility] Start: 05-30-2025 End: 05-30-2025 Bamboo flowsheet Ángel Sita DO Work Phone: [facility] Start: 05-30-2025 End: 05-30-2025 flow sheet Ángel Sita DO Work Phone: [facility] Comment on above: Third trimester preg lai ([facility]); 29 weeks gestation of ([facility]); History of miscarriage; Multigravida of advanced maternal age in third trimester ([facility]) Start: 05-30-2025 End: 05-30-2025 ambulatory ÁNGEL SITA Not Available Start: 05-11-2025 End: 05-11-2025 Clinisync Result Encounter Edson Dewitt NP Work Phone: [facility] Unsolicited Start: 05-11-2025 End: 05-11-2025 Clinisync Result Encounter Edson Dewitt NP Work Phone: [facility] Unsolicited Start: 05-01-2025 End: 05-01-2025 Bamboo flowsheet Deisy MUNOZ Work Phone: [facility] Start: 05-01-2025 End: 05-01-2025 Bamboo flowsheet Deisy MUNOZ Work Phone: [facility] Start: 05-01-2025 End: 05-01-2025 flow sheet Deisy MUNOZ Work Phone: [facility] Comment on above: size inconsist [...] Bamboo flowsheet Ángel Sita DO Work Phone: [facility] Start: 03-30-2025 End: 03-30-2025 Bamboo flowsheet Ángel Sita DO Work Phone: [facility] Start: 03-30-2025 End: 03-30-2025 flow sheet Ángel Sita DO Work Phone: [facility] Comment on above: Second trimester [...] Clinisync Result Encounter Deisy MUNOZ Work Phone: [facility] External Department Unsolicited Start: 03-02-2025 End: 03-03-2025 External Result Encounter Deisy MUNOZ Work Phone: [facility] External Department Unsolicited Start: 03-02-2025 End: 03-02-2025 Patient encounter procedure Deisy MUNOZ Work Phone: [facility] Start: 03-02-2025 End: 03-02-2025 Periodic preventive med est patient 18-39 yrs Deisy MUNOZ Work Phone: [facility] Comment on above: 17 weeks gestation o f ; Second trimester ; Well woman exam with routine gynecological exam; Screening, , for anatomic survey; Exposure to STD; Vaginal discharge; Heartburn; Allergy, sequela Start: 03-02-2025 End: 03-02-2025 ambulatory DEISY VILLAR Not Available Start: 02-02-2025 End: 02-02-2025 Bamboo flowsheet Ángel Sita DO Work Phone: [facility] Start: 02-02-2025 End: 02-02-2025 Bamboo flowsheet Ángel Sita DO Work Phone: [facility] Start: 02-02-2025 End: 02-02-2025 flow [...] 10-18-2024 ambulatory Robles Ball DO Work Phone: [facility] Work Phone: Start: 10-18-2024 End: 10-18-2024 Encounter for general adult medical examination without abnormal findings Robles Ball DO Work Phone: [facility] Start: 10-18-2024 End: 10-18-2024 Patient encounter procedure Robles Ball DO Work Phone: [facility] Work Phone: Start: 10-16-2024 Patient encounter status Jermaine min Ball DO Work Phone: [facility] Start: 10-14-2024 Non-patient / Non-visit Benjam in Ball DO Work Phone: [facility] Work Phone: Start: 09-22-2024 End: 09-22-2024 Departed Referred DO Robles Charles Work Phone: [facility] Start: 09-22-2024 End: 09-22-2024 ambulatory DO Robles Charles Work Phone: [facility] Work Phone: Start: 09-13-2024 End: 09-13-2024 Bamboo [...] Not Available Start: 08-29-2024 End: 08-29-2024 ambulatory [facility] Work Phone: Start: 08-29-2024 End: 08-29-2024 Patient encounter procedure [facility] Work Phone: Start: 05-03-2024 End: 05-03-2024 ambulatory [facility] Work Phone: Start: 05-03-2024 End: 05-03-2024 Patient encounter procedure [facility] Work Phone: Start: 2024 End: 2024 ambulatory DO Robles Charles Work Phone: [facility] Work Phone: Start: 2024 End: 2024 Patient encounter procedure DO Robles Charles Work Phone: [facility] Work Phone: Start: 01-07-2024 End: 01-07-2024 Patient encounter procedure DO Robles Charles Work Phone: [facility] [place] Work Phone: Start: 01-07-2024 End: 01-07-2024 ambulatory DO Robles Charles Work Phone: [facility] Work Phone: Start: 01-06-2024 End: 01-06-2024 Office outpatient visit 15 minutes Deisy MUNOZ Work Phone: [facility] Comment on above: Encounter for weight management; Hormone disorder; 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 Start: 10-02-2023 End: 10-02-2023 ambulatory Robles Charles Other [employer] Other Start: 10-02-2023 Encounter for genera l adult medical examination without abnormal findings Robles Charles [employer] Start: 10-02-2023 Periodic preventive med est patient 18-39 yrs Robles Charles [facility] Start: 09-17-2023 End: 09-17-2023 ambulatory MD Liz Conteh Work Phone: [facility] Work Phone: Start: 09-17-2023 End: 09-17-2023 Departed Referred MD Liz Conteh Work Phone: [facility]Employee Benefit Screening Start: 01-22-2023 End: 01-22-2023 ambulatory Robles Charles Other [employer] Other Start: 01-22-2023 Office outpatient vi sit 15 minutes Robles Charles [facility] Start: 01-12-2023 End: 01-12-2023 ambulatory Robles Charles Other [employer] Other Start: 01-12-2023 Telephone encounter Robles Charles [facility] Start: 12-24-2022 End: 12-24-2022 ambulatory Robles Charles Other [employer] Other Start: 12-24-2022 Office outpatient vi sit 15 minutes Robles Charles [facility] Start: 09-30-2022 End: 09-30-2022 ambulatory Kiya Schaffer Other [employer] Other Start: 09-30-2022 Telephone encounter Kiya Schaffer [facility] Start: 09-26-2022 End: 09-26-2022 Departed Referred MD Liz Conteh Work Phone: [facility] [place] Start: 09-26-2022 End: 09-26-2022 ambulatory MD Liz Conteh Work Phone: [facility] Work Phone: Start: 09-26-2022 Office outpatient vi sit 15 minutes Kiya Schaffer [facility] Start: 09-25-2022 ([facility] C Vac) [facility] Co vid Vaccine Subha Dillon [facility] Start: 09-25-2022 End: 09-25-2022 ambulatory MD Liz Conteh Work Phone: [facility] Work Phone: Start: 09-25-2022 End: 09-25-2022 Patient encounter procedure MD Liz Conteh Work Phone: [facility]Cov[facility] Vaccine Off Site Start: 08-25-2022 End: 08-25-[address] ÁNGEL BUCKNER Facility: Start: 08-07-2022 End: 08-07-2022 Departed Referred MD Liz Conteh Work Phone: [facility]-Employee Benefit Screening Start: 06-06-2022 End: 06-07-[address] ROBLES CHARLES Facility:[facility] Start: 01-01-2022 End: 01-01-2022 ambulatory Elsi Mayer Other [employer] Other Start: 01-01-2022 Office outpatient vi sit 5 minutes Elsi Leyla [facility] Start: 12-27-2021 End: 12-27-2021 ambulatory Elsi Mayer Other [employer] Other Start: 12-27-2021 Office outpatient vi sit 15 minutes Elsi Leyla [facility] Start: 08-23-2021 ([facility] C Vac) [facility] Co vid Vaccine Subha Dillon [facility] Procedures Date Procedure Procedure Detail Performing Clinician Start: 05-30-2025 Urnls dip stick/tabl et rgnt non-auto w/o micrscp Ángel Sita DO Work Phone: Start: 05-11-2025 US OB GROWTH Edson [employer] OPERATIONS ANALYST Work Phone: Start: 04-18-2025 ALL CBC WITH [...] 09-13-2029 Screening for malignant neoplasm of cervix [facility] Start: 03-02-2028 Screening for malignant neoplasm of cervix Pap Smear [facility] Start: 09-19-2025 End: 09-19-2025 Patient encounter procedure 09/19/2025 8:30 AM EDT Office Visit [facility] [address] [place] [address] Ángel Buckner, DO [address] [place] [address] [facility] Start: 07-31-2025 Influenza vaccination [facility] Start: 06-26-2025 End: 06-26-2025 Patient encounter procedure 06/26/2025 1:10 PM EDT Routine [facility] [address] [place] [phone] Ángel Buckner, [place] [facility] [place] [address] [facility] Start: 06-19-2025 Screening for malignant neoplasm of cervix [facility] Start: 06-12-2025 End: 06-12-2025 Patient encounter procedure 06/12/2025 2:10 PM EDT Routine [facility] [address] [place] [id number] Ángel Buckner, DO [address] [place] [address] [facility] Start: 05-30-2025 End: 11-30-2025 US biophysical profile w non stress test US biophysical profile w non stress test Imaging Routine History of miscarriage Multigravida of advanced maternal age in third trimester ([facility]) Expected: 05/30/2025 (Approximate), Expires: 11/30/2025 [facility] Work Phone: Comment on above: Expected: 05/30/2025 (Approximate), Expi res: 11/30/2025 Start: 05-30-2025 End: 05-30-2025 Patient encounter procedure [facility] Comment on above: Arrived Start: 05-01-2025 End: 08-31-2025 US for US OB follow up transabdominal approach Imaging Routine size inconsistent with dates Expected: 05/01/2025, Expires: 08/31/2025 [facility] Work Phone: Comment on above: Expected: 05/01/2025, Expires: Start: 05-01-2025 End: 05-01-2025 Patient encounter procedure [facility] Comment on above: Arrived Start: 04-18-2025 End: 04-18-2025 Professional / ancillary services management 04/18/2025 11:00 AM EDT Ancillary Procedure [facility] [address] [place] [phone] [facility] Start: 04-03-2025 End: 04-03-2025 Patient encounter procedure 04/03/2025 9:50 AM EDT [facility] [address] [facility] [place] [phone] SitaÁngel locke, DO [address] [place] [address] [facility] Start: 04-03-2025 End: 04-03-2025 Professional / ancillary services management 04/03/2025 8:00 AM EDT Ancillary Procedure [facility] [address] [facility] [phone] [facility] Start: 03-30-2025 End: 03-30-2026 CBC panel - Blood by Automated count CBC Lab Routine Second trimester Diabetes mellitus screening Expected: 03/30/2025 (Approximate), Expires: 03/30/2026 [facility] Work Phone: Comment on above: Expected: 03/30/2025 (Approximate), Expi res: 03/30/2026 Start: 03-30-2025 End: 03-30-2026 Measurement of glucose 1 hour after glucose challenge for glucose tolerance test Glucose tolerance, 1 hour Lab Routine Second trimester Diabetes mellitus screening Expected: 03/30/2025 (Approximate), Expires: 03/30/2026 [facility] Comment on above: Expected: 03/30/2025 (Approximate), Expi res: 03/30/2026 Start: 03-30-2025 End: 06-30-2025 US for US OB limited 1+ fetuses Imaging Routine Encounter for follow-up ultrasound of anatomy Expected: 03/30/2025, Expires: 06/30/2025 [facility] Comment on above: Expected: 03/30/2025, Expires: Start: [...] Routine [facility] [address] [place] [phone] Deisy Villar PA [address] [place] [address] Arrived [facility] Comment on above: Arrived Start: 02-02-2025 End: 02-02-2025 Patient encounter procedure [facility] Comment on above: Arrived Start: 01-05-2025 End: 01-05-2025 ambulatory 01/05/2025 1:30 PM EST Initial [facility] [address] [place] [address] [facility] Start: 01-05-2025 End: 01-05-2025 Professional / ancillary services management 01/05/2025 1:00 PM EST Ancillary Procedure [facility] [address] [place] [phone] [facility] Start: 09-13-2024 End: 09-13-2024 Patient encounter procedure [facility] Comment on above: Arrived Start: 07-31-2024 Influenza vaccination Influenza Vaccine (#1) [facility] Start: 02-03-2024 End: 02-03-2024 Patient encounter procedure 02/03/2024 1:50 PM EST Office Visit [facility] [address] [place] [phone] Diesy Villar PA [address] [facility] [address] [place] [address] [facility] Start: 01-07-2024 Dehydroepiandrosterone sulfate level [facility] Start: 01-07-2024 Sex hormone binding globulin measurement [facility] Start: 01-07-2024 T3 reverse measurement [facility] Start: 01-07-2024 Thyroxine measurement [facility] Start: 01-07-2024 [facility] Start: 01-06-2024 End: 01-06-2025 Anti-thyroglobulin antibody Anti-thyroglobulin antibody Lab Routine Hormone disorder Expected: 01/06/2024 (Approximate), Expires: 01/06/2025 [facility] Comment on above: Expected: 01/06/2024 (Approximate), Expi res: 01/06/2025 Start: 01-06-2024 End: 01-06-2025 C-peptide C-peptide Lab Routine Hormone disorder Expected: 01/06/2024 (Approximate), Expires: 01/06/2025 [facility] Comment on above: Expected: 01/06/2024 (Approximate), Expi res: 01/06/2025 Start: 01-06-2024 End: 01-06-2025 Cortisol free Cortisol, free Lab Routine Hormone disorder Expected: 01/06/2024 (Approximate), Expires: 01/06/2025 [facility] Comment on above: Expected: 01/06/2024 (Approximate), Expi res: 01/06/2025 Start: 01-06-2024 End: 01-06-2025 Glucose [Mass/volume] in Serum or Plasma Glucose, random Lab Routine Hormone disorder Expected: 01/06/2024 (Approximate), Expires: 01/06/2025 [facility] Comment on above: Expected: 01/06/2024 (Approximate), Expi res: 01/06/2025 Start: 01-06-2024 End: 01-06-2025 Insulin, total Insulin, total Lab Routine Hormone disorder Expected: 01/06/2024 (Approximate), Expires: 01/06/2025 [facility] Comment on above: Expected: 01/06/2024 (Approximate), Expi res: 01/06/2025 Start: 01-06-2024 End: 01-06-2025 Serotonin serum Serotonin serum Lab Routine Hormone disorder Expected: 01/06/2024 (Approximate), Expires: 01/06/2025 [facility] Comment on above: Expected: 01/06/2024 (Approximate), Expi res: 01/06/2025 Start: 01-06-2024 End: 01-06-2025 Thyroglobulin Thyroglobulin Lab Routine Hormone disorder Expected: 01/06/2024 (Approximate), Expires: 01/06/2025 [facility] Comment on above: Expected: 01/06/2024 (Approximate), Expi res: 01/06/2025 Start: 01-06-2024 End: 01-06-2025 Thyrotropin [Units/volume] in Serum or Plasma [facility] Comment on above: Ordered: 01/06/2024 Expected: 01/06/2024 (Approximate), Expires: 01/06/2025 Start: 09-17-2023 [facility] Start: 08-07-2022 [facility] Work Phone: Calcitriol [Mass/vol ume] in Serum or Plasma [facility] CHLAMYDIA TRACHOMATI S (GENITO/STI) CHLAMYDIA TRACHOMATIS (GENITO/STI) Lab Routine Exposure to STD Ordered: 03/02/2025 [facility] Comment on above: Ordered: 03/02/2025 Cytology Cervical or vaginal smear or scraping study Pap Smear Pathology and Cytology Routine Well woman exam with routine gynecological exam Ordered: 09/13/2024 [facility] Work Phone: Comment on above: Ordered: 09/13/2024 Cytology Cervical or vaginal smear or scraping study Pap Smear Pathology and Cytology Routine Well woman exam with routine gynecological exam Ordered: 03/02/2025 [facility] Comment on above: Ordered: 03/02/2025 DHEA-sulfate DHEA-sulfate Lab Routine Hormone disorder Ordered: 01/06/2024 [facility] Comment on above: Ordered: 01/06/2024 Estradiol Estradiol Lab Ro utine Hormone disorder Ordered: 01/06/2024 [facility] Work Phone: Comment on above: Ordered: 01/06/2024 Estradiol (E2) [Mass /volume] in Serum or Plasma [facility] Estrone Estrone Lab Rout ine Hormone disorder Ordered: 01/06/2024 [facility] Comment on above: Ordered: 01/06/2024 Estrone (E1) [Mass/v olume] in Serum or Plasma [facility] Ferritin [Mass/volum e] in Serum or Plasma Ferritin Lab Routine Hormone disorder Ordered: 01/06/2024 [facility] Comment on above: Ordered: 01/06/2024 Hemoglobin A1c measurement Hemog lobin A1c Lab Routine Hormone disorder Ordered: 01/06/2024 [facility] Comment on above: Ordered: 01/06/2024 Human papilloma viru s DNA [Presence] in Unspecified specimen by Probe with amplification HPV DNA probe, amplified Microbiology Routine Well woman exam with routine gynecological exam Ordered: 09/13/2024 [facility] Comment on above: Ordered: 09/13/2024 Human papilloma viru s DNA [Presence] in Unspecified specimen by Probe with amplification HPV DNA probe, amplified Microbiology Routine Well woman exam with routine gynecological exam Ordered: 03/02/2025 [facility] Comment on above: Ordered: 03/02/2025 Insulin [Units/volum e] in Serum or Plasma [facility] Neisseria gonorrhoea e DNA [Presence] in Unspecified specimen by ROB with probe detection Neisseria gonorrhea DNA probe, direct Lab Routine Exposure to STD Ordered: 03/02/2025 [facility] Comment on above: Ordered: 03/02/2025 Progesterone Progesterone Lab Routine Hormone disorder Ordered: 01/06/2024 [facility] Comment on above: Ordered: 01/06/2024 Progesterone [Mass/v olume] in Serum or Plasma [facility] Serotonin [Mass/volu me] in Plasma [facility] Sex hormone binding globulin Sex hormone binding globulin Lab Routine Hormone disorder Ordered: 01/06/2024 [facility] Comment on above: Ordered: 01/06/2024 SURESWAB(R) ADVANCED VAGINITIS PLUS, TMA SURESWAB(R) ADVANCED VAGINITIS PLUS, TMA Pathology and Cytology Routine Vaginal discharge Ordered: 03/02/2025 [facility] Work Phone: Comment on above: Ordered: 03/02/2025 T3, reverse T3, reverse Lab Routine Hormone disorder Ordered: 01/06/2024 [facility] Comment on above: Ordered: 01/06/2024 Testosterone Free [Mass/volume] in Serum or Plasma [facility] TESTOSTERONE, FREE TESTOSTERONE, FREE Lab Routine Hormone disorder Ordered: 01/06/2024 [facility] Comment on above: Ordered: 01/06/2024 Testosterone, free, total Testos terone, free, total Lab Routine Hormone disorder Ordered: 01/06/2024 [facility] Comment on above: Ordered: 01/06/2024 Throat culture Throat Culture [facility] Thyroglobulin Ab [Units/volume] in Serum or Plasma [facility] Thyroid peroxidase antibody Thyr oid peroxidase antibody Lab Routine Hormone disorder Ordered: 01/06/2024 [facility] Comment on above: Ordered: 01/06/2024 Thyroperoxidase Ab [Units/volume] in Serum or Plasma [facility] Thyroxine (T4) free [Mass/volume] in Serum or Plasma T4, free Lab Routine Hormone disorder Ordered: 01/06/2024 [facility] Comment on above: Ordered: 01/06/2024 Triiodothyronine (T3 ) Free [Mass/volume] in Serum or Plasma T3, free Lab Routine Hormone disorder Ordered: 01/06/2024 [facility] Comment on above: Ordered: 01/06/2024 Vitamin D 1,25 dihydroxy Vitamin D 1,25 dihydroxy Lab Routine Hormone disorder Ordered: 01/06/2024 [facility] Comment on above: Ordered: 01/06/2024 [facility] Work Phone: Immunizations Immunization Date Immunization Notes Care Provider Fa cilidavid 09-15-2023 influenza, injectabl e, quadrivalent, preservative free [facility] 09-15-2023 influenza virus vaccine, unspecified formulation Ángel Buckner DO Work Phone: [facility] 09-25-2022 COVID-19 Moderna (BIvalent) Kiya Schaffer Other [facility] 08-23-2021 COVID-19 Pfizer Subha Dillon Other [facility] 07-31-2021 COVID-19 Pfizer Subha Dillon Other [facility] 05-19-2021 diphtheria, tetanus toxoids and pertussis vaccine [facility] Payers Date Payer Category Payer Self-pay [id number] 2022 Private Health Insurance [employer] [id number] 2022 Unknown [employer] [id number] 2022-Present [address] [place] [address] [id number] 1990 Unknown [id number] 2.16.840.1.548506.3.579.2 .593 1990 Unknown [id number] 2.16.840.1.745321.3.579.2 .593 1990 Unknown [id number] 2.16.840.1.812813.3.579.2 .1259 1990 Unknown [id number] 2.16.840.1.035461.3.579.2 .1259 1990 Unknown [id number] 2.16.840.1.849813.3.579.2 .1259 1990 Unknown [id number] 2.16.840.1.790884.3.579.2 .1259 1990 Unknown [id number] 2.16.840.1.492616.3.579.2 .9 1990 Unknown [id number] 2.16.840.1.780954.3.579.2 .1258 1990 Unknown [id number] 2.16.840.1.813354.3.579.2 .1258 1990 Unknown [id number] 2.16.840.1.531934.3.579.2 .1258 1990 Unknown [id number] 2.16.840.1.591552.3.579.2 .1259 1959 Unknown [id number] 2.16.840.1.785352.19 Unknown [id number] 2.16.840.1.036607.3.579.2 .531 Unknown [id number] 2.16.840.1.003475.3.579.2 .531 Worker's Compensation [facility] C t Ind [id number] Social History Date Type Detail Facility Start: 10-13-2023 End: 09-13-2024 Sex Assigned At [facility] Start: 1990 [facility] Assigned At [facility] Start: 08-13-2023 End: 05-03-2024 Tobacco smoking status CAIS Never smoked tobacco [facility] Start: 01-06-2024 [...] Gender identity Identifies as female gender (finding) [facility] Start: 10-18-2024 Sex Female (finding) [facility] Start: 11-16-2024 [facility] Clinical Notes 08-23-2021 to 05-30-2025 Renu Charlton, [employer] - 05/30/2025 8:50 AM EDTEdson Dewitt NP - 05/01/2025 8:30 AM EDBayron Kearney, [employer] - 03/30/2025 10:10 AM ALEXANDER Abbott - 03/02/2025 9:30 AM EDT Note Date & Type Note Facility 05-30-2025 History of Presen t illness Narrative Reason [...] nursing note reviewed. Exam conducted with a drill bit sharpener present. Vitals: Estimated body mass index is 35.52 kg/m as calculated from the following: Height as of 01/06/24: 5' 7 . Weight as of this encounter: 226 lb 12.8 oz. BP: 120/78 Patient's last menstrual period was 11/02/2024. ASSESSMENT & PLAN ICD-10-CM 1. Third trimester ([facility]) Z34.93 POCT urinalysis dipstick manually resulted 2. 29 weeks gestation of ([facility]) Z3A.29 POCT urinalysis dipstick manually resulted 3. History of miscarriage Z87.59 4. Multigravida of advanced maternal age in third trimester ([facility]) O09.523 Return OB: Patient presents today for [...] Ángel Buckner DO documented in this encounter [facility] 05-01-2025 History of Presen t illness Narrative [...] nursing note reviewed. Exam conducted with a drill bit sharpener present. Vitals: Estimated body mass index is [...] Edson Dewitt NP documented in this encounter [facility] 03-30-2025 History of Presen t illness [...] Diagnosis Date Fatigue GARTH (generalized anxiety disorder) ([facility]) Hyperlipidemia (CMS/HCC) Paronychia, finger HISTORY PAST MEDICAL [...] nursing note reviewed. Exam conducted with a drill bit sharpener present. Vitals: Estimated body mass index is [...] 21w1d with a Estimated Date of Delivery: 9/10/25. Gave patient order to have 1 hour gtt and CBC done prior to next appointment. Patient also given Ultrasound order to have done 4 weeks from previous scan to clear anatomy. Patient to return to clinic in 4 weeks. Documented by Mary Lou Kearney LPN on behalf of: Ángel Buckner DO documented in this encounter [facility] 03-02-2025 History of Presen t illness [...] nursing note reviewed. Exam conducted with a drill bit sharpener present. Vitals: Estimated body mass index is [...] for routine OB appointment Documented by Camille Lawrenec LPN on behalf of: ALEXANDER Gramajo documented in this encounter [facility] 02-02-2025 History of Presen t illness [...] Ángel Buckner DO documented in this encounter [facility] 09-13-2024 History of Presen t illness [...] nursing note reviewed. Exam conducted with a drill bit sharpener present. Vitals: Estimated body mass index is [...] Ángel Buckner DO documented in this encounter [facility] 01-06-2024 History of Presen t illness [...] Diagnosis Date Fatigue GARTH (generalized anxiety disorder) ([facility]) Hyperlipidemia ([facility]) Paronychia, finger Family History Problem [...] of: ALEXANDER Gramajo documented in this encounter [facility] 10-02-2023 Evaluation note Encounter Date Diagnosis [...] prior to bedtime. Weight loss. Pepcid PRN [employer] Other 2023 Evaluation note* Encounter Date Diagnosis Assessment Notes Treatment Notes Treatment Clinical Notes Dec, Nasal turbinate hypertrophy (ICD-10 - J34.3) FLonase, saline NS, Sudafed and avoid use of Afin. Refer to ENT. Dec, Nonallergic vasomotor rhinitis (ICD-10 - J30.0) Prednisone tapered over 8 days. Claritin as needed. [employer] Other 02-13-2023 Evaluation note* Encounter Date Diagnosis Assessment Notes Treatment Notes Treatment Clinical Notes Dec, Acute non-recurrent maxillary sinusitis (ICD-10 - J01.00) [employer] Other 01-25-2023 Evaluation note* Encounter Date Diagnosis Assessment Notes Treatment Notes Treatment Clinical Notes Nov, Acute non-recurrent maxillary sinusitis (ICD-10 - J01.00) Instructed to use Robitussin or Mucinex for cough, saline or Flonase NS for congestion, Tylenol for pain and fever. [employer] Other 10-28-2022 Evaluation note* Encounter Date Diagnosis [...] (suspected) exposure to covid-19 (ICD-10 - Z20.822) [employer] Other 10-27-2022 Evaluation note* Encounter Date Diagnosis Assessment Notes Treatment Notes Treatment Clinical Notes Aug, Encounter for immunization (ICD-10 - Z23) Patient presents today for COVID-19 vaccination booster. Patient pre-vaccination form answers reviewed. Patient denies current illness or allergic reaction to any component of a COVD-19 vaccine. Patient provided with copy of current EUA. [employer] Other 02-02-2022 Evaluation note* Encounter Date Diagnosis [...] Patient care instructions given in writting by [facility] document. Additional time spent conducting pre-visit phone call, screening for symptoms, instructions on social distancing, application and removal of PPE, and cleaning of examination room, equipment and supplies was preformed. Patient education given for testing methodology and results. Patient care instructions given in writting by [facility] document. [employer] Other 01-28-2022 Evaluation note* Encounter Date Diagnosis [...] Patient care instructions given in writting by [facility] document. [employer] Other 09-24-2021 Evaluation note* Encounter Date Diagnosis Assessment Notes Treatment Notes Treatment Clinical Notes Jul, Encounter for immunization (ICD-10 - Z23) Patient presents for COVID-19 vaccination #2. Pre-screening form answers evaluated with patient. Patient denies current illness or allergic reaction to component of COVID-19 vaccine. Patient provided with current copy of EUA. [employer] Other Evaluation noteNo assessment information available [facility] Work Phone: Evaluation noteNo InformationNort [employer] Other Evaluation note* Diagnosis Encounter for weight management Hormone disorder Unspecified endocrine disorder 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 [facility] Diagnosis Well woman exam with routine gynecological exam Routine gynecological examination [facility]* Diagnosis Onset Date Resolution Status Admit Date Hypercholesteremia acute Novemb er 2023 11:13am Wellness examination acute Nove mber 2023 11:13am [facility] Work Phone: Evoutation note* Diagnosis 13 weeks gestation of Second [...] ultrasound of anatomy [facility]* Diagnosis size inconsistent with dates- Primary Second trimester state, incidental 25 weeks gestation of [facility]* Diagnosis Third trimester ([facility]HS-HCC) state, incidental 29 weeks gestation of ([facility]) History of miscarriage Personal history of other genital system and obstetric disorders Multigravida of advanced maternal age in third trimester (HHS-HCC) [facility] Narrative - Reported* Type Description Date Medical History Child X2 Natural Surgical History No know Surgical history Hospitalization History see above [employer] Other History general Narrative - Reported* Type Description Date Medical History Child X2 Natural Surgical History No Surgical history information Hospitalization History see above [employer] Other [facility] general Narrative - Reported* Type Description Date Medical History Child X2 Natural Medical History Body mass index (BMI) of 25.0 to 29.9 Medical History Fatigue Medical History Hyperlipidemia, group A Medical History GARTH (generalized anxiety disorde r) Surgical History No know Surgical history Hospitalization History No know Hospitalization history [employer] Other Chief Complaint and Reason for Visit [...] Nasal turbinate hype rtrophy (J34.3) Referral Organization [facility] Nela russo Referring Provider First Name Robles Referring Provider Last Name Nela Referring Provider Specialty Internal Me dicine Referred Organization [facility] Referred Provider Robles Hernandez Referred Address ,[place], [place],[address] Referred Provider Specialty Otolaryngolo gy Referral Priority Routine Referral Appointment Date 2023-02-04 General Notes Rosangela Cruz 09:25:33 AM >received today, notes locked, insurance card attached, referral faxed Rosangela Cruz 01/29/2023 12:42:25 PM >Shannan at Dr. Rodriges office requested referral be faxed again to [phone]. done! Rosangela Cruz 02/05/2023 02:23:23 PM >notes [...] Primary Care Provider Active Delano Francis DO [facility] Attending Provider Active Team Status: Active Member Role Status Dates Liz Conteh MD Primary Care Provider Active Team Status: Inactive Member Role Status Dates Liz Conteh MD Primary Care Provider Active Dreick iTmmons MD Attending Provider Active Team Status: Inactive [...] January 07, 2024 End: January 07, 2024 Hotel Maid Relationship Specialty Start Date End Date Robles Charles MD [address] [place] [address] PCP - General Internal Medicine 07/30/23 Team Status: Inactive Member Role Status Dates Robles Charles DO Primary Care Provide r, Attending Provider Active Start: 2024 End: 2024 Team Status: Inactive Member Role Status Dates Robles Charles DO Primary Care Provider Active Start: May 03, 2024 End: May 03, 2024 Caro Chacon APRN OPERATIONS ANALYST-C Attending Provider Act alex Start: May 03, 2024 End: May 03, 2024 Team Status: Inactive Member Role Status Dates Robles Charles DO Primary Care Provide r, Attending Provider Active Start: August 29, 2024 End: August 29, 2024 Hotel Maid Relationship Specialty Start Date End Date Robles Charles MD [address] [place] [phone] PCP - General Internal Medicine 07/30/23 Deisy Villar PA [address] [place] [address] [place] [address] PCP - Medical [place] [employer] 11/30/23 11/29/99 Hotel Maid Relationship Specialty Start Date End Date Robles Charles MD [address] [place] [address] PCP - General Internal Medicine 07/30/23 Deisy Villar PA [address] [place] [address] [place] [address] PCP - Medical [place] [employer] 11/30/23 11/29/99 Hotel Maid Relationship Specialty Start Date End Date Robles Charles MD [address] [place] [address] PCP - General Internal Medicine 07/30/23 Deisy Villar PA [address] [place] [address] [place] [address] PCP - Medical [place] [employer] 11/30/23 11/29/99 Team Status: Inactive Member [...] Member Role Status Dates Robles Charles , DO Primary Care Provide r, Attending Provider Active Start: October 18, 2024 End: October 18, 2024 Hotel Maid Relationship Specialty Start Date End Date Robles Charles MD [address] [facility] [place] [address] PCP - General Internal Medicine 07/30/23 Deisy Villar PA [address] [place] [address] [place] [address] PCP - Medical [place] [employer] 11/30/23 11/29/99 Hotel Maid Relationship Specialty Start Date End Date Robles Charles MD [address] [facility] [place] [address] PCP - General Internal Medicine 07/30/23 Deisy Villar PA [address] [facility] [place] [address] PCP - Medical [place] [employer] 11/30/23 11/29/99 Hotel Maid Relationship Specialty Start Date End Date Robles Charles MD [address] [facility] [place] [phone] PCP - General Internal Medicine 07/30/23 Deisy Villar PA [address] [place] [address] [address] [place], [place] [id number] PCP - Medical [place] [employer] 11/30/23 11/29/99 Hotel Maid Relationship Specialty Start Date End Date Robles Charles MD [address] [facility] [place] [address] PCP - General Internal Medicine 07/30/23 Deisy Vlilar PA [address] [place] [address] [address] [place], [place] [phone] PCP - Medical [place] [employer] 11/30/23 11/29/99 Hotel Maid Relationship Specialty Start Date End Date Robles Charles MD PCP - General Internal Medicine 07/30/23 Deisy Villar PA [address] [place] [address] [place] [address] PCP - Medical [place] [employer] 11/30/23 11/29/99 Hotel Maid Relationship Specialty Start Date End Date Robles Charles DO PCP - General Internal Medicine 07/30/23 Deisy Villar PA [address] [place] [address] [place] [address] PCP - Medical [place] [employer] 11/30/23 11/29/99 Hotel Maid Relationship Specialty Start Date End Date Robles Charles DO [address] [facility] [place] [address] PCP - General Internal Medicine 07/30/23 Deisy Villar PA [address] [place] [address] [address], [place] [id number] PCP - Medical [place] [employer] 11/30/23 11/29/99 Hotel Maid Relationship Specialty Start Date End Date Robles Charles DO [address] [place] [address] PCP - General Internal Medicine 07/30/23 Deisy Villar PA [address] [place] [address] [address], [place] [id number] PCP - Medical [place] [employer] 11/30/23 11/29/99 Hotel Maid Relationship Specialty Start Date End Date Robles Charles DO [address] [place] [address] PCP - General Internal Medicine 07/30/23 Deisy Villar PA [address] [place] [address] [address], [place] [id number] PCP - Medical [place] [employer] 11/30/23 11/29/99 Hotel Maid Relationship Specialty Start Date End Date Robles Charles DO [address] [place] [address] PCP - General Internal Medicine 07/30/23 Deisy Villar PA [address] [place], [place] [id number] PCP - Medical [place] [employer] 11/30/23 11/29/99 Hotel Maid Relationship Specialty Start Date End Date Robles Charles DO [address] [place] [address] PCP - General Internal Medicine 07/30/23 Deisy Villar PA [address] [place] [address] [place] [address] PCP - Medical [place] [employer] 11/30/23 11/29/99 Goals (unrecognized section and content) Goals may be documented in a n alternate section INFORMATION SOURCE (unrecogn ized section and content) DATE CREATED AUTHOR 09/02/2022 [facility] DATE CREATED AUTHOR AUTHOR'S ORGANIZ ATION 09/23/2024 [facility] DATE CREATED AUTHOR AUTHOR'S ORGANIZ ATION 05/31/2025 [facility] FOR RECORDS PERTAINING TO PATIENTS WHO ARE [...] BE BASED ON THE PRIMARY CLINICAL RECORDS. [employer] provides no warranty or guarantee of the accuracy or completeness of information in this document.
[2025-06-03 08:41] VITALS: BP 117/66; PULSE 78
== END 2025-06-03 09:10 | disposition home or self-care (01) ==
LOC: US 08:10 → FBC 08:11
PROVIDERS: PCP Internal Medicine; Visit Provider Obstetrics & Gynecology
DX: O09.523 Supervision of elderly multigravida, third trimester (principal); Z87.59 Personal history of other complications of pregnancy, childbirth and the puerperium; Z3A.30 30 weeks gestation of pregnancy
CPT/HCPCS: 76818

== ENCOUNTER 2025-06-07 18:04 | Outpatient (OUT) | payer OTHER, SELFPAY ==
[2025-06-07 18:11] VITALS: BP 123/70; PULSE 86
== END 2025-06-07 18:50 | disposition home or self-care (01) ==
LOC: FBCO 18:05 → FBC 18:06
PROVIDERS: PCP Internal Medicine; Visit Provider Obstetrics & Gynecology
DX: O26.893 Other specified pregnancy related conditions, third trimester (principal)
CPT/HCPCS: 59025

== ENCOUNTER 2025-06-10 07:57 | Outpatient (OUT) | payer OTHER, SELFPAY ==
--- OUTSIDE RECORDS SUMMARY | 2025-05-30 08:50 | XMS_ITS | Encounter Summary ---
Author Organization [facility] Address [address] [place] [address] Care Team Providers Care Senior Dot Net Developer Name Role Phone Melvin Robles Jerome DO Primary Care Provider [phone] Deisy Haji Unavailable Reason for Visit * Reason Comments Routine Visit Encounter Details Date Type Department Care Team (Late st Contact Info) Description 05/30/2025 8:50 AM EDT Routine [facility] OB [address] [place] [address] Ángel Buckner DO [address] [place] [address] Third trimester ([facility]); 29 weeks gestation of ([facility]); History of miscarriage; Multigravida of advanced maternal age in third trimester ([facility]) Social History Tobacco Use Types Packs/Day Years [...] Sign Reading Time Taken Comments Blood Pressure 120/78 05/30/2025 9:10 AM EDT Pulse - - Temperature - - Respiratory Rate - - Oxygen Saturation - - Inhaled Oxygen Concentration - - Weight 103 kg (226 lb 12.8 oz) 05/30/2025 9:10 A M EDT Height - - Body Mass Index 35.52 01/06/2024 2:20 PM EST documented in this encounter Progress Notes * Renu Charlton, ENVIRONMENTAL REMEDIATION CONSULTANT - 05/30/2025 8:50 AM EDT Reason for Appointment: Patient ID: [...] Diagnosis Date Fatigue GARTH (generalized anxiety disorder) Hyperlipidemia Paronychia, finger HISTORY PAST MEDICAL HISTORY SOCIAL HISTORY Past Medical History: Diagnosis Date Fatigue GARTH (generalized anxiety disorder) Hyperlipidemia Paronychia, finger Social History Tobacco Use Smoking [...] nursing note reviewed. Exam conducted with a oil pumper present. Vitals: Estimated body mass index is 35.52 kg/m?? as calculated from the following: Height as of 01/06/24: 5' 7 . Weight as of this encounter: 226 lb 12.8 oz. BP: 120/78 Patient's last menstrual period was 11/02/2024. ASSESSMENT & PLAN ICD-10-CM 1. Third trimester ([facility]) Z34.93 POCT urinalysis dipstick manually resulted 2. 29 weeks gestation of ([facility]) Z3A.29 POCT urinalysis dipstick manually resulted 3. History of miscarriage Z87.59 4. Multigravida of advanced maternal age in third trimester ([facility]) O09.523 Return OB: Patient presents today for a routine obstetrics appointment. Patient is currently 29w6d . Patient states she is doing well but has complaints of being tired due to current . Patient has verbalizes frequent movement. labor precautions was discussed/given and patient was instructed to perform kick counts three times a day. Pt given NST/BPP order to have obtained. Orders Placed This Encounter Procedures POCT urinalysis dipstick manually resulted Follow Up: Patient is to return to office in 2 week for routine OB appointment. Documented by Renu Charlton LPN on behalf of: Ángel Buckner DO documented in this encounter Plan of Treatment Upcoming Encounters Date Type Department Care Team (Late st Contact Info) Description 06/12/2025 2:10 PM EDT Routine [facility] [address] [facility] [phone] Ángel Buckner, DO [address] [place] [address] 06/26/2025 1:10 PM EDT Routine [facility] OB [facility] [place] [phone] Ángel Buckner, DO [address] [place], [place] [phone] 09/19/2025 8:30 AM EDT Office Visit [facility] OB [address] [place], [place] [address] [address] Ángel Buckner, DO [address] [place], [place] [address] [address] Scheduled Orders Name Type Priority Associated Diagnoses Orde r Schedule US biophysical profile w non stress test Imaging Routine History of miscarriage Multigravida of advanced maternal age in third trimester ([facility]) Expected: 05/30/2025 (Approximate), Expires: 11/30/2025 documented as of this encounter Procedures Procedure Name Priority Date/Time Associated Diagnosis Comments POCT URINALYSIS DIPSTICK Routine 05/30/2025 9:17 AM EDT Third trimester ([facility]) 29 weeks gestation of ([facility]) documented in this encounter Results * POCT urinalysis dipstick manually resulted (05/30/2025 9:17 AM EDT) Color, UA Yellow Clarity, UA Clear Glucose, UA Negative Negative - 2000(110) ++++ mg/dL Bilirubin, UA Negative Negative - 4(70) +++ mg/dL Ketones, UA Negative Negative - 160(16) ++++ mg/dL Spec Grav, UA 1.020 1 - 1.03 Blood, UA Negative Negative - 50 Ezequiel/mcL pH, UA 5.5 5 - 9 Protein, UA Negative Negative - 2000(20) ++++ mg/dL Urobilinogen, UA 1.0 0.2 - 12 mg/dL Leukocytes, UA Negative Negative - 500+++ Jason/mcL Nitrite, UA Negative Negative - Positive Urine 05/30/2025 9:17 AM EDT Ángel Buckner DO POINT OF CARE TEST ENTER/EDIT OR DERABLES Final Result documented in this encounter Visit Diagnoses Diagnosis Third trimester ([facility]) state, incidental 29 weeks gestation of ([facility]) History of miscarriage Personal history of other genital system and obstetric disorders Multigravida of advanced maternal age in third trimester ([facility]) documented in this encounter Care Teams Senior Dot Net Developer Relationship Specialty [place] [address] [place] [address] [place] [address] PCP - General Internal Medicine 07/30/23 Deisy Haji PA [address] [place] [address] [place] [address] PCP - Medical [employer] 11/30/23 11/29/99 documented as of this encounter
--- OUTSIDE RECORDS SUMMARY | 2025-06-10 08:00 | XMS_ITS | Encounter Summary ---
Author Organization [facility] Address [address] [place] [address] Care Team Providers Care Paint Roller Winder Name Role Phone MelvinRobles Justus CRESPO Primary Care Provider [phone] Deisy Haji Unavailable Encounter Details Date Type Department Care Team (Late Contact Info) Description 05/30/2025 Bamboo flowsheet [facility] OB [address] [place] [address] Ángel Buckner DO [address] Aarsh [place]aur, [facility] Social History Tobacco Use Types Packs/Day Years [...] Routine [facility] [address] [place] [phone] Ángel Buckner, DO [address] [place] [address] 06/26/2025 1:10 PM EDT Routine [facility] [address] [place] [phone] Ángle Buckner, DO [address] [place] [address] 09/19/2025 8:30 AM EDT Office Visit [facility] [address] [place] [address] Ángel Buckner, DO [address] [place] [address] documented as of this encounter Visit Diagnoses Not on filedocumented in this encounter Care Teams Paint Roller Winder Relationship Specialty Start Date End Date Robles Charles DO [address] [facility] [place] [address] PCP - General Internal Medicine 07/30/23 Deisy Haji PA [facility] [place] [address] PCP - Medical [place] [employer] 11/30/23 11/29/99 documented as of this encounter
--- OUTSIDE RECORDS SUMMARY | 2025-06-10 08:00 | XMS_ITS | Encounter Summary ---
Author Organization [facility] Address [address] [place] [address] Care Team Providers Care Steam Tender Name Role Phone MelvinRobles Primary Care Provider [phone] Deisy Haji Unavailable Encounter Details Date Type Department Care Team (Late st Contact Info) Description 08/06/2023 Clinisync Result Encounter [facility] External Department Unsolicited Le Buckner DO [facility] [place], [facility]11 Social History Tobacco Use Types Packs/Day Years [...] Routine [facility] [address] [place] [address] Le Buckner DO [facility] [place], [place] [phone] 06/26/2025 1:10 PM EDT Routine [facility] [address] [place], [place] [address] [place] [address] Le Buckner, [address] [place] [address] 09/19/2025 8:30 AM EDT Office Visit [facility] [address] [place] [address] Le Buckner [address] [place] [address] documented as of this encounter Procedures Procedure Name Priority Date/Time Associated Diagnosis Comments US OB TRANSVAGINAL 08/06/2023 4: 44 PM EDT documented in this encounter Results * US OB TRANSVAGINAL (08/06/2023 4:44 PM EDT) Anatomical Region Laterality Modality Other 08/06/2023 4:44 PM EDT Narrative 08/06/2023 4:44 PM EDT The [address] [address] Ultrasound Report Signed Patient: Phillip Hernandez MR#: [id number] : 1990 Acct:[id number] Age/Sex: 33 / F ADM Date: 08/06/23 Loc: US Attending Dr: Le Buckner D.O. Ordering Physician: Le Buckner D.O. Date of Service: 08/06/23 Procedure(s): US OB transvaginal Accession Number(s): [id number] cc: Le Buckner D.O.; Physician,Non-Staff MJennifer The [address] [address] Patient Name: PHILLIP HERNANDEZ MRN: [id number] date: 1990 Sex: F Assigned Patient Location: US Current Patient Location: US Accession/Order Number: [id number] Exam Date: 08/06/2023 09:32 Report Date: 08/06/2023 [...] M.D. Signed By: 08/06/231646 DD/ 43 TD/TT: Assistant Strength Coach: Procedure Note Radiology, Radiologist, MD - 08/21/2023 [place] [address] Ultrasound Report Signed Patient: Phillip Hernandez LMR#: [id number] : 1990Acct:[id number] Age/Sex: 33 / FADM Date: 08/06/23 Loc: US Attending Dr: Le Buckner D.O. Ordering Physician: Le Buckner D.O. Date of Service: 08/06/23 Procedure(s): US OB transvaginal Accession Number(s): [id number] cc: Le Buckner D.O.; Physician,Non-Staff Lauri The [address] [address] Patient Name: PHILLIP HERNANDEZ MRN: [id number] date: 1990 Sex: F Assigned Patient Location: US Current Patient Location: US Accession/Order Number: [id number] Exam Date: 08/06/2023 09:32 Report Date: 08/06/2023 16:44 At the request of: LE UBCKNER Procedure: US OB transvaginal EXAMINATION: US OB [...] Yeung M.D. Signed By:08/06/231646 DD/ 43 TD/TT: Assistant Strength Coach: us Le Buckner DO [facility] Final Result documented in this encounter Visit Diagnoses Not on filedocumented in this encounter Care Teams Steam Tender Relationship Specialty Start Date End Date Robles Charles DO [address] [facility] [place] [address] PCP - General Internal Medicine 07/30/23 Deisy Haji PA [address] [place] [address] [place] [address] PCP - Medical [place] [employer] 11/30/23 11/29/99 documented as of this encounter
--- OUTSIDE RECORDS SUMMARY | 2025-06-10 08:00 | XMS_ITS | Encounter Summary ---
Author Organization [facility] Address [address] [place] [address] Care Team Providers Care Electrical Controls Engineer Name Role Phone MelvinRobles Jomar CRESPO Primary Care Provider [phone] Deisy Haji Unavailable Encounter Details Date Type Department Care Team (Late Contact Info) Description 02/02/2025 Abstract [facility] OB [address] [place] [address] Ángel Buckner DO [address] [facility] [address] [place], [place] [id number] Social History Tobacco Use Types Packs/Day Years [...] Routine [facility] [address] [place] [phone] Ángel Buckner, DO [address] [place] [address] 06/26/2025 1:10 PM EDT Routine [facility] [address] [place] [phone] Ángel Buckner, DO [address] [place] [address] 09/19/2025 8:30 AM EDT Office Visit [facility] [address] [place] [phone] Ángel Buckner, DO [address] [place] [address] documented as of this encounter Visit Diagnoses Not on filedocumented in this encounter Care Teams Electrical Controls Engineer Relationship Specialty Start Date End Date Robles Charles DO [address] [facility] [place] [address] PCP - General Internal Medicine 07/30/23 Deisy Haji PA [address] [place], [place] [address]j[place] [place], [place] [id number] PCP - Medical [place] [employer] 11/30/23 11/29/99 documented as of this encounter
--- OUTSIDE RECORDS SUMMARY | 2025-06-10 08:00 | XMS_ITS | Encounter Summary ---
Author Organization [facility] Address [address] [place] [address] Care Team Providers Care Heavy Duty Truck Mechanic Name Role Phone MelvinRobles Justus CRESPO Primary Care Provider [phone] Deisy Haji Unavailable Encounter Details Date Type Department Care Team (Late st Contact Info) Description 06/03/2025 Clinisync Result Encounter [facility] External Department Unsolicited Le Buckner DO [address] [facility] [address] [place] [id number] Social History Tobacco Use Types Packs/Day Years [...] PM EDT Routine [facility] [address] [facility] [place] [address] Le Buckner, [address] [place] [address] 06/26/2025 1:10 PM EDT Routine [facility] OB [address] [place], [place] [address] [place] [address] Le Buckner, [address] [place] [address] 09/19/2025 8:30 AM EDT Office Visit [facility] OB [address] [place], [place] [address] [place] [address] Le Buckner, [address] [place] [address] documented as of this encounter Procedures Procedure Name Priority Date/Time Associated Diagnosis Comments US OB BPP W NON-STRESS 06/03/2025 2:23 PM EDT documented in this encounter Results * US OB BPP W NON-STRESS (06/03/2025 2:23 PM EDT) Anatomical Region Laterality Modality Other 06/03/2025 2:23 PM EDT Narrative 06/03/2025 2:25 PM EDT The [address] [address] Ultrasound Report Signed Patient: PHILLIP HERNANDEZ MR#: [id number] : 1990 Acct:[id number] Age/Sex: 35 / F ADM Date: 06/03/25 Loc: US Attending Dr: Le Buckner D.O. Ordering Physician: Le Buckner D.O. Date of Service: 06/03/25 Procedure(s): US OB BPP w non-stress Accession Number(s): [id number] cc: Robles Charles D.O.; Le Buckner D.O. [address] [address] Patient Name: PHILLIP HERNANDEZ MRN: [facility]:[id number] date: 1990 Sex: F Assigned Patient Location: [facility] Current Patient Location: Accession/Order Number: [id number] Exam Date: 06/03/2025 14:22 Report Date: 06/03/2025 14:23 At the request of: LE BUCKNER DO Procedure: US OB BPP w non-stress Ultrasound biophysical profile HISTORY: History of miscarriage. Advanced maternal age Adequate breathing movement, gross body movement, tone and amniotic fluid volume for total score of 8 out of 8. The amniotic fluid index is 13.0cm within normal limits. The heart rate 152 bpm. US/US OB BPP w non-stress IMPRESSION: Adequate ultrasound biophysical profile Impression dictated by: Aguilar Durand M.D. 06/03/2025 2:23 PM Dictation Location: [place] [address] Electronically authenticated by: [id number] Y Date: 06/03/2025 14:23 Dictated By: Aguilar Durand D.O. Signed By: 06/03/25 142 DD/ 22 TD/TT: Coastal Tug Mate: Procedure Note Radiology, Radiologist, - 06/03/2025 [place] [address] Ultrasound Report Signed Patient: PHILLIP HERNANDEZ LMR#: [id number] : 1990Acct:[id number] Age/Sex: 35 / FADM Date: 06/03/25 Loc: US Attending Dr: Le uBckner D.O. Ordering Physician: Le Buckner D.O. Date of Service: 06/03/25 Procedure(s): US OB BPP w non-stress Accession Number(s): [id number] cc: Robles Charles D.O.; Le Buckner D.O. [address] [id number] Patient Name: PHILLIP HERNANDEZ MRN: [facility]:[id number] date: 1990 Sex: F Assigned Patient Location: [facility] Current Patient Location: Accession/Order Number: [id number] Exam Date: 06/03/2025 14:22 Report Date: 06/03/2025 14:23 At the request of: LE BUCKNER DO Procedure: US OB BPP w non-stress Ultrasound biophysical profile HISTORY: History of miscarriage. Advanced maternal age Adequate breathing movement, gross body movement, tone and amniotic fluid volume for total score of 8 out of 8. The amniotic fluidindex is 13.0cm within normal limits. The heart rate 152 bpm. US/US OB BPP w non-stress IMPRESSION: Adequate ultrasound biophysical profile Impression dictated by: Aguilar Durand M.D. 06/03/2025 2:23 PM Dictation Location: [employer] Electronically authenticated by: [id number] Y Date: 4:23 Dictated By: Aguilar Durand D.O. Signed By:06/03/25 1425 DD/ 1423 TD/TT: Coastal Tug Mate: Le Buckner DO [facility] Final Result documented in this encounter Visit Diagnoses Not on filedocumented in this encounter Care Teams Heavy Duty Truck Mechanic Relationship Specialty Start Date End Date Robles Charles DO [address] [facility] [place] [address] PCP - General Internal Medicine 07/30/23 Deisy Haji PA [address] [place] [address] [place] [address] PCP - Medical [place] [employer] 11/30/23 11/29/99 documented as of this encounter
--- OUTSIDE RECORDS SUMMARY | 2025-06-10 08:00 | XMS_ITS | Encounter Summary ---
Author Organization [facility] Address [address] [place] [address] Care Team Providers Care Real Estate Loan Processor Name Role Phone Robles Charles Primary Care Provider [phone] Deisy Haji Unavailable Encounter Details Date Type Department Care Team (Late Contact Info) Description 03/09/2025 Orders Only [facility] [address] [place] [address] Camille Lawrence LPN [address] [place] [address] Social History Tobacco Use Types [...] 2:10 PM EDT Routine [facility] OB [address] [place], [place] [address] [address] Ángel Buckner, DO [address] [place] [address] 06/26/2025 1:10 PM EDT Routine [facility] OB [address] [place], [place] [address] [address] Ángel Buckner, DO [address] [place], [place] [phone] 09/19/2025 8:30 AM EDT Office Visit [facility] [address] [place], [place] [address] [address] Ángel Buckner, DO [address] [place], [place] [phone] documented as of this encounter Procedures Procedure Name Priority Date/Time Associated Diagnosis Comments PAP SMEAR Routine 03/02/2025 12:00 AM EDT documented in this encounter Results * Pap Smear (03/02/2025 12:00 AM EDT) Swab Cervical swab / Unknown Sita Nurse [facility] LAB CYTOLOGY ORDERABLES Final Result EXTERNAL LAB documented in this encounter Visit Diagnoses Not on filedocumented in this encounter Care Teams Real Estate Loan Processor Relationship Specialty Start Date End Date Robles Charles DO [address] [place] [address] PCP - General Internal Medicine 07/30/23 Deisy Haji PA [facility] [address] [place], [place] [phone] PCP - Medical [place] [employer] 11/30/23 11/29/99 documented as of this encounter
--- OUTSIDE RECORDS SUMMARY | 2025-06-10 08:01 | XMS_ITS | CCD ---
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 Role Phone Subha Dillon Unavailable Elsi Mayer Unavailable MD Liz Conteh Primary Care Provider [phone] DO Delano Francis Attending Provider [phone] SITA, DR LUJAN Consulting Unavailable SITA, [...] Unavailable MD Liz Conteh Primary Care Provider [phone] DO Delano Francis Attending Provider QUANG Villar Attending Provider DO Robles Charles Primary Care Provider Robles Charles MD Primary Care Provider QUANG Villar Attending Provider DO Robles Charles Primary Care Provider Deisy Pratt Unavailable DO Robles Charlse Primary Care Provider Tito - DO Delano MEZA Attending Provider Tito Delano MEZA Admitting Unavailable Tito Delano MEZA Attending Unavailable Robles Charles Primary Care Unavailable Deisy Villar Admitting Unavailable Deisy Villar Attending Unavailable Robles Charles Primary Care Unavailable Robles Charles DO Primary Care Provider [phone] [facility] Delano CRESPO Attending Provider Robles Charles [...] (5 sources) Penicillin V Drug Allergy rash [employer] Other (1 source) Amoxicillin Drug Allergy 0 [facility] Repository (1 source) Penicillins Drug allergy (disorder) [facility] Repository (5 sources) Penicillin Drug Allergy rash [employer] Other (1 source) Substance with penicillin structure and antibacterial mechanism of action (substance) Drug allergy 3 PENICILLINS [facility] [facility] [place] Other (20 sources) Amoxicillin Drug Allergy [address] [facility] Healthcare (20 sources) Penicillin G Drug Allergy [address] [facility] Healthcare (1 source) Penicillins Drug allergy (disorder) 4 [facility] Repository Medications Current Medications Medication Drug Class(es) Dates Sig (Normalized) Sig (Original) aspirin 81 mg delayed release oral tablet (18 sources) Platelet Aggregation Inhibitor, Nonsteroidal Anti-inflammatory Drug [...] 2 12/22/2024 02/02/2025 Active Pre- (10 sources) Pre-Mack Not-Ta flakita Pre-Mack [...] Value Interpretation Reference Range Facility US OB BPP W NON-STRESS on 06-03-2025 [place] [address] Ultrasound Report Signed Patient: ANGELA REYES MR#: [id number] : 1990 Acct:[id number] Age/Sex: 35 / F ADM Date: 06/03/25 Loc: US Attending Dr: Ángel Buckner D.O. Ordering Physician: Ángel Buckner D.O. Date of Service: 06/03/25 Procedure(s): US OB BPP w non-stress Accession Number(s): [id number] cc: Robles Charles D.O.; Ángel Buckner D.O. [place] [address] Patient Name: ANGELA REYES MRN: [id number] date: 1990 Sex: F Assigned Patient Location: [facility] Current Patient Location: Accession/Order Number: [id number] Exam Date: 06/03/2025 14:22 Report Date: 06/03/2025 14:23 At the request of: ÁNGEL BUCKNER DO Procedure: US OB BPP w [...] Durand M.D. 06/03/2025 2:23 PM Dictation Location: OtherInbox Electronically authenticated by: [id number] Y Date: 06/03/2025 14:23 Dictated By: Aguilar Durand D.O. Signed By: 06/03/251424 DD/ 22 TD/TT: Strand Forming Machine Operator: [facility] Radiology, Radiologbrittanie pa MD - 06/03/2025 [place] [address] Ultrasound Report Signed Patient: ANGELA REYES MR#: [id number] : 1990 Acct:[id number] Age/Sex: 35 / F ADM Date: 06/03/25 Loc: US Attending Dr: Ángel Buckner D.O. Ordering Physician: Ángel Buckner D.O. Date of Service: 06/03/25 Procedure(s): US OB BPP w non-stress Accession Number(s): [id number] cc: Robles Charles D.O.; Ángel Buckner D.O. [place] [address] Patient Name: ANGELA REYSE MRN: [facility]:[id number] date: 1990 Sex: F Assigned Patient Location: [facility] Current Patient Location: Accession/Order Number: [id number] Exam Date: 06/03/2025 14:22 Report Date: 06/03/2025 14:23 At the request of: ÁNGEL BUCKNER DO Procedure: US OB BPP w [...] Durand M.D. 06/03/2025 2:23 PM Dictation Location: OtherInbox Electronically authenticated by: [id number] Y Date: 06/03/2025 14:23 Dictated By: Aguilar Durand D.O. Signed By: 06/03/251424 DD/ 22 TD/TT: Strand Forming Machine Operator: [facility] Radiology Study observation (narrative) [facility] OB BPP W NON-STRESS Ordered By: Radiologist Radiology on 06-03-2025 [facility] Work Phone: Urinalysis macro (dipstick) panel (U)on 05-30-2025 Bilirubin, UA Negative Negative - 4(70) +++ mg/dL [facility] Blood, UA Negative Negative - 50 Ezequiel/mcL [facility] Clarity, UA Clear [facility] Color, UA Yellow [facility] Glucose, UA Negative Negative - 2000(110) ++++ mg/dL [facility] Interpretation and review of laboratory results Normal [facility] Ketones, UA Negative Negative - 160(16) ++++ mg/dL [facility] Leukocytes, UA Negative Negative - 500+++ Jason/mcL [facility] Nitrite, UA Negative Negative - Positive [facility] pH, UA 5.5 5 - 9 [facility] Protein, UA Negative Negative - 2000(20) ++++ mg/dL [facility] Spec Grav, UA 1.02 1 - 1.03 [facility] Urobilinogen, UA 1.0 0.2 - 12 mg/dL [facility] OB GROWTHon 05-11-2025 [place] [address] Ultrasound Report Signed Patient: ANGELA REYES MR#: [id number] : 1990 Acct:[id number] Age/Sex: 35 / F ADM Date: 05/11/25 Loc: US Attending Dr: Edson Dewitt Ordering Physician: Edson Dewitt Date of Service: 05/11/25 Procedure(s): US OB growth Accession Number(s): [id number] cc: Robles Charles D.O.; Edson Dewitt [address] [address] Patient Name: ANGELA REYES MRN: [facility]:[id number] date: 1990 Sex: F Assigned Patient Location: US Current Patient Location: US Accession/Order Number: [id number] Exam Date: 05/11/2025 14:38 Report Date: 05/11/2025 [...] Jr., D.O. 05/11/2025 2:40 PM Dictation Location: [place] [address] Electronically authenticated by: [id number] Y Date: 05/11/2025 14:40 Dictated By: Justin Mack M.D. Signed By: 05/11/25 1442 DD/ 1440 TD/TT: Strand Forming Machine Operator: [facility] Radiology Radiologbrittanie pa MD - 05/11/2025 [place] [address] Ultrasound Report Signed Patient: ANGELA REYES MR#: [id number] : 1990 Acct:[id number] Age/Sex: 35 / F ADM Date: 05/11/25 Loc: US Attending Dr: Edson Dewitt Ordering Physician: Edson Dewitt Date of Service: 05/11/25 Procedure(s): US OB growth Accession Number(s): [id number] cc: Robles Charles D.O.; Edson Dewitt The [address] [address] Patient Name: ANGELA REYES MRN: [facility]:[id number] date: 1990 Sex: F Assigned Patient Location: Current Patient Location: Accession/Order Number: [id number] Exam Date: 05/11/2025 14:38 Report Date: 05/11/2025 [...] Jr., D.O. 05/11/2025 2:40 PM Dictation Location: [place] [address] Electronically authenticated by: [id number] Y Date: 05/11/2025 14:40 Dictated By: Justin Mack M.D. Signed By: 05/11/25 1442 DD/ 1440 TD/TT: Strand Forming Machine Operator: [facility] Radiology Study observation (narrative) [facility] OB GROWTHOrdered By: Reg jenningsogdarwin Radiology on 05-11-2025 [facility] Work Phone: ALL CBC WITH AUTO DIFFon BASOPHILS ABSOLUTE AUTO 0 N [facility] Basophils/100 WBC (Bld) 0.2 % 0.2 - 2.0 % [facility] Eosinophils/100 WBC (Bld) 1.2 % 0.9 - 7.0 % [facility] Erythrocyte distribution width (RBC) [Ratio] 13.2 % 11.0 - 15.0 % [facility] Hematocrit (Bld) [Volume fraction] 31.9 % Low 36.0 - 48.0 % [facility] Hemoglobin (Bld) [Mass/Vol] 10.6 g/dL Low 12.0 - 16.0 g/dL [facility] IMMATURE GRANULOCYTES ABS AUTO 0.06 High [facility] Immature granulocytes/100 WBC (Bld) 0.6 % High 0.0 - 0.5 % [facility] Interpretation and review of laboratory results Abnormal [facility] LYMPHOCYTES ABSOLUTE AUTO 1.6 [facility] Lymphocytes/100 WBC (Bld) 15.6 % Low 20.5 - 60.0 % [facility] MCH (RBC) [Entitic mass] 32.6 pg 26.7 - 34.0 pg [facility] MCHC (RBC) [Mass/Vol] 33.2 g/dL 29.9 - 35.2 g/dL [facility] MCV (RBC) [Entitic vol] 98.2 fL 81.0 - 99.0 fL [facility] MONOCYTES ABSOLUTE AUTO 0.6 N [facility] Monocytes/100 WBC (Bld) 6 % 1.7 - 12.0 % [facility] NEUTROPHILS ABSOLUTE AUTO 7.7 High [facility] Neutrophils/100 WBC (Bld) 76.4 % High 43.0 - 75.0 % [facility] Platelet mean volume (Bld) [Entitic vol] 9 fL Low 9.5 - 13.5 fL [facility] EO # 0.1 [facility] PLT 313 [facility] RBC 3.25 Low [facility] WBC 10.1 [facility] GLUCOSE 1 HOURon 04-18-2025 Glucose [Mass/Vol] 96 mg/dL NINF - 13 0 mg/dL [facility] No Panel Informationon 04-18 [facility] US OB LIMITED 1+ FETUSESon 0 04-18-2025 [...] II, MD, PHD at 21-Apr-2025 12:15:59 PM [facility] Normal Not Available Comment on above: Order Comment: US OB INCOMPLETE ANATOMY W US OB TRANSVAGINAL Estimated Date of Delivery: 08/09/25 Gestational Age as of 03/30/2025: 21w1d Urinalysis macro (dipstick) panel (U)on 03-30-2025 Bilirubin, UA Negative Negative - 4(70) +++ mg/dL [facility] Blood, UA Negative Negative - 50 Ezequiel/mcL [facility] Clarity, UA Clear [facility] Color, UA Yellow [facility] Glucose, UA Negative Negative - 2000(110) ++++ mg/dL [facility] Interpretation and review of laboratory results Normal [facility] Ketones, UA Negative Negative - 160(16) ++++ mg/dL [facility] Leukocytes, UA Negative Negative - 500+++ Ajson/mcL [facility] Nitrite, UA Negative Negative - Positive [facility] pH, UA 7 5 - 9 [facility] Protein, UA Negative Negative - 2000(20) ++++ mg/dL [facility] Spec Grav, UA 1.02 1 - 1.03 [facility] Urobilinogen, UA 0.2 0.2 - 12 mg/dL [facility] US OB ANATOMYon 03-21-2025 [place] [id number] Ultrasound Report Signed Patient: ANGELA REYES MR#: [id number] : 1990 Acct:[id number] Age/Sex: 35 / F ADM Date: 03/20/25 Loc: US Attending Dr: Deisy Villar Ordering Physician: Deiys Villar Date of Service: 03/20/25 Procedure(s): US OB anatomy Accession Number(s): [id number] cc: Deisy Villar; Robles Charles D.O. [address] [address] Patient Name: ANGELA REYES MRN: TB[facility]:[id number] date: 1990 Sex: F Assigned Patient Location: US Current Patient Location: Accession/Order Number: [id number] Exam Date: 03/21/2025 13:12 Report Date: 03/21/2025 [...] Aguilar Durand M.D.03/21/2025 1:16 PM Dictation Location: [place] [address] Electronically authenticated by: [id number] Y Date: 03/21/2025 13:16 Dictated By: Aguilar Durand D.O. Signed By: 03/21/25 1319 DD/ 1316 TD/TT: Strand Forming Machine Operator: [facility] Radiology, Radiologi MD ember - 03/21/2025 [place] [address] Ultrasound Report Signed Patient: ANGELA REYES MR#: [id number] : 1990 Acct:[id number] Age/Sex: 35 / F ADM Date: 03/20/25 Loc: US Attending Dr: Deisy Villar Ordering Physician: Deisy Villar Date of Service: 03/20/25 Procedure(s): US OB anatomy Accession Number(s): [id number] cc: Deisy Villar; Robles Charles D.O. [address] [address] Patient Name: ANGELA REYES MRN: [facility]:[id number] date: 1990 Sex: F Assigned Patient Location: US Current Patient Location: Accession/Order Number: [id number] Exam Date: 03/21/2025 13:12 Report Date: 03/21/2025 13:16 At the request of: DEISY ADITHYA Procedure: US OB anatomy Obstetrical Ultrasound for [...] Aguilar Durand M.D.03/21/2025 1:16 PM Dictation Location: [facility] Electronically authenticated by: [id number] Y Date: 03/21/2025 13:16 Dictated By: Aguilar Durand D.O. Signed By: 03/21/25 131 DD/ 15 TD/TT: Strand Forming Machine Operator: [facility] Radiology Study observation (narrative) [facility] US OB ANATOMYOrdered By: Chepe stewartogdarwin Radiology on 03-21-2025 [facility] Work Phone: US OB CERVICAL LENGTHon 03-01 [place] [address] Ultrasound Report Signed Patient: ANGELA REYES MR#: [id number] : 1990 Acct:[id number] Age/Sex: 35 / F ADM Date: 03/20/25 Loc: US Attending Dr: Deisy Villar Ordering Physician: Deisy Villar Date of Service: 03/20/25 Procedure(s): US OB cervical length Accession Number(s): [id number] cc: Deisy Villar; Robles Charles D.O. [place] [id number] Patient Name: ANGELA REYES MRN: [facility]:[id number] date: 1990 Sex: F Assigned Patient Location: US Current Patient Location: Accession/Order Number: [id number] Exam Date: 03/21/2025 09:18 Report Date: 03/21/2025 09:19 At the request of: DEISY VILLAR Procedure: US OB cervical length Ultrasound assessment of the cervical length The cervical length is 3.8 cm. The cervical os is closed. US/US OB cervical length IMPRESSION: #3.8 cm cervical length. Impression dictated by: Aguilar Durand M.D.03/21/2025 9:19 AM Dictation Location: [place] [address] Electronically authenticated by: [id number] Y Date: 03/21/2025 09:19 Dictated By: Aguilar Durand D.O. Signed By: 03/21/25921 DD/ 8 TD/TT: Strand Forming Machine Operator: [facility] Radiology Radiologbrittanie pa MD - 03/21/[address] [address] Ultrasound Report Signed Patient: ANGELA REYES MR#: [id number] : 1990 Acct:[id number] Age/Sex: 35 / F ADM Date: 03/20/25 Loc: US Attending Dr: Deisy Villar Ordering Physician: Deisy Villar Date of Service: 03/20/25 Procedure(s): US OB cervical length Accession Number(s): [id number] cc: Deisy Villar; Robles Charles D.O. The [address] [address] Patient Name: ANGELA REYES MRN: [facility]:[id number] date: 1990 Sex: F Assigned Patient Location: US Current Patient Location: Accession/Order Number: [id number] Exam Date: 03/21/2025 09:18 Report Date: 03/21/2025 09:19 At the request of: DEISY VILLAR Procedure: US OB cervical length Ultrasound assessment of the cervical length The cervical length is 3.8 cm. The cervical os is closed. US/US OB cervical length IMPRESSION: #3.8 cm cervical length. Impression dictated by: Aguilar Durand M.D.03/21/2025 9:19 AM Dictation Location: [place] [address] Electronically authenticated by: [id number] Y Date: 03/21/2025 09:19 Dictated By: Aguilar Durand D.O. Signed By: 03/21/25921 DD/ 8 TD/TT: Strand Forming Machine Operator: [facility] Radiology Study observation (narrative) [facility] US OB CERVICAL LENGTHOrdered By: Radiologist Radiology on 03-21-2025 [facility] Work Phone: IGP,APTIMA HPV,AGE GDLNon AGE GDLN ACOG TESTING Note . [facility] Comment on above: TESTS RESULT FLAG UN ITS REF RANGE LAB Clinician Provided Cytology Information Source.............Cervix Other.............. No. of containers..01 ThinPrep Vial Age Radha SPRINGER Lara... 30 FLAG LEGEND: L-Low Normal,H-High Normal,LL-Alert Low,HH-Alert High <-Panic Low,>-Panic High,A-Abnormal,AA-Critical Abnormal Performed at: 01 =G [address] [address] Ilana Heath MD, HPV APTIMA Negative Negative [facility] Comment on above: This nucleic acid am plification test detects fourteen high- risk HPV types (16,18,31,33,35,39,45,51,52,56,58,59,66,68) without differentiation. Performed at: =G - [address] [id number] [place] Worker: Ilana Heath MD, Phone: [phone] Performed at: - [address] [id number] [place] Worker: Ilana Heath MD, Phone: [phone] IGP, APTIMA HPV, RFX 16/18,45 Note . [facility] Comment on above: TESTS RESULT FLAG UN ITS REF RANGE LAB DIAGNOSIS: 02 NEGATIVE FOR INTRAEPITHELIAL LESION OR MALIGNANCY. THIS SPECIMEN WAS RESCREENED PART OF OUR HYDRAULIC OIL TOOL OPERATOR PROGRAM. Specimen adequacy: 02 Satisfactory for evaluation. No endocervical component is identified. Performed by: 03 Eugenia Kennedy, Dough Puncher (ASCP) QC reviewed by: 02 Meredith Chávez, Radiology Administrator . 02 Note: Note 02 The Pap [...] High,A-Abnormal,AA-Critical Abnormal Performed at: 02 [address] [facility] [address] [address] Ilana Heath MD, 03 KWCYT [facility] [place] [address] [address] [place] [address] Lloyd Kim MD, SPATULA-ALONE CERVIX [facility] RECURRENT VAGINITIS (HTRX)on 03-03-2025 ATOPOBIUM VAGINAE 0 [facility] ATOPOBIUM VAGINAE Not detected [facility] BVAB 2,3 (BACTERIAL VAGINOSIS ASSOCIATED BACTERIA 2, 3); MOBILUNCUS SPP 0 [facility] BVAB 2,3 (BACTERIAL VAGINOSIS ASSOCIATED BACTERIA 2, 3); MOBILUNCUS SPP Not detected [facility] ANEUDY ALBICANS, PARAPSILOSIS, TROPICALIS 0 [facility] ANEUDY ALBICANS, PARAPSILOSIS, TROPICALIS Not detected [facility] ANEUDY GLABRATA 0 [facility] ANEUDY GLABRATA Not detected [facility] ANEUDY KRUSEI 0 [facility] ANEUDY KRUSEI Not detected [facility] CHLAMYDIA TRACHOMATIS [address] [facility] CHLAMYDIA TRACHOMATIS Not detected N [facility] GARDNERELLA VAGINALIS [address] [facility] GARDNERELLA VAGINALIS Not detected N [facility] MEGASPHAERA (TYPES 1, 2) 0 [facility] MEGASPHAERA (TYPES 1, 2) Not detected [facility] MYCOPLASMA GENITALIUM [address] [facility] MYCOPLASMA GENITALIUM Not detected N [facility] NEISSERIA GONORRHOEAE [address] [facility] NEISSERIA GONORRHOEAE Not detected N [facility] TRICHOMONAS VAGINALIS [address] [facility] TRICHOMONAS VAGINALIS Not detected N [facility] Urinalysis macro (dipstick) panel (U)on 03-02-2025 Bilirubin, UA Negative Negative - 4(70) +++ mg/dL [facility] Blood, UA Negative Negative - 50 Ezequiel/mcL [facility] Clarity, UA Clear [facility] Color, UA Yellow [facility] Glucose, UA Negative Negative - 1999(110) ++++ mg/dL [facility] Interpretation and review of laboratory results Normal [facility] Ketones, UA Negative Negative - 160(16) ++++ mg/dL [facility] Leukocytes, UA Negative Negative - 500+++ Jason/mcL [facility] Nitrite, UA Negative Negative - Positive [facility] pH, UA 7 5 - 9 [facility] Protein, UA Negative Negative - 2000(20) ++++ mg/dL [facility] Spec Grav, UA 1.02 1 - 1.03 [facility] Urobilinogen, UA 0.2 0.2 - 12 mg/dL [facility] Ur[facility] macro (dipstick) panel (U)on 02-02-2025 Bilirubin, UA Negative Negative - 4(70) +++ mg/dL [facility] Blood, UA Negative Negative - 50 Ezequiel/mcL [facility] Clarity, UA Clear [facility] Color, UA Yellow [facility] Glucose, UA Negative Negative - 1999(110) ++++ mg/dL [facility] Interpretation and review of laboratory results Abnormal [facility] Ketones, UA Negative Negative - 160(16) ++++ mg/dL [facility] Leukocytes, UA Trace Negative - 500+++ Jason/mcL [facility] Nitrite, UA Negative Negative - Positive [facility] pH, UA 6 5 - 9 [facility] Protein, UA Negative Negative - 2000(20) ++++ mg/dL [facility] Spec Grav, UA 1.025 1 - 1.03 [facility] Urobilinogen, UA 0.2 0.2 - 12 mg/dL [facility] ALL CBC WITH AUTO DIFFon BASOPHILS ABSOLUTE AUTO 0 N [facility] Basophils/100 WBC (Bld) 0.4 % 0.2 - 2.0 % [facility] Eosinophils/100 WBC (Bld) 2.2 % 0.9 - 7.0 % [facility] Erythrocyte distribution width (RBC) [Ratio] 12.5 % 11.0 - 15.0 % [facility] Hematocrit (Bld) [Volume fraction] 34 % Low 36.0 - 48.0 % [facility] Hemoglobin (Bld) [Mass/Vol] 11.7 g/dL Low 12.0 - 16.0 g/dL [facility] IMMATURE GRANULOCYTES ABS AUTO 0.03 [facility] Immature granulocytes/100 WBC (Bld) 0.4 % 0.0 - 0.5 % [facility] Interpretation and review of laboratory results Abnormal [facility] LYMPHOCYTES ABSOLUTE AUTO 1.6 [facility] Lymphocytes/100 WBC (Bld) 20.4 % Low 20.5 - 60.0 % [facility] MCH (RBC) [Entitic mass] 31.5 pg 26.7 - 34.0 pg [facility] MCHC (RBC) [Mass/Vol] 34.4 g/dL 29.9 - 35.2 g/dL [facility] MCV (RBC) [Entitic vol] 91.6 fL 81.0 - 99.0 fL [facility] MONOCYTES ABSOLUTE AUTO 0.6 N [facility] Monocytes/100 WBC (Bld) 7.2 % 1.7 - 12.0 % [facility] NEUTROPHILS ABSOLUTE AUTO 5.6 [facility] Neutrophils/100 WBC (Bld) 69.4 % 43.0 - 75.0 % [facility] Platelet mean volume (Bld) [Entitic vol] 9.6 fL 9.5 - 13.5 fL [facility] EO # 0.2 [facility] PLT 302 [facility] RBC 3.71 Low [facility] WBC 8 [facility] US OB TRANSVAGINALon 025 US OB TRANSVAGINAL [...] II, MD, PHD at 09-Jan-2025 09:10:54 AM [facility] Normal Not Available Comment on above: Order Comment: US OB TRANSVAGINAL No LMP recorded. [facility] PREG QUANT HCGon 025 HCG QUANTITATIVE 32938 mIU/mL [facility] Comment on above: 5-50 0.2-1 WEEK 50-500 1-2 WEEKS 100-5,000 2-3 WEEKS 500-10,000 3-4 WEEKS 1,000-50,000 4-5 WEEKS 10,000-100,000 5-6 WEEKS 15,000-200,000 6-8 WEEKS 10,000-100,000 2[facility] P[facility] QUANT HCGon 025 HCG QUANTITATIVE [id number] mIU/mL [facility] Comment on above: 5-50 0.2-1 WEEK 50-500 1-2 WEEKS 100-5,000 2-3 WEEKS 500-10,000 3-4 WEEKS 1,000-50,000 4-5 WEEKS 10,000-100,000 5-6 WEEKS 15,000-200,000 6-8 WEEKS 10,000-100,000 2-[facility] Automated basophil %Ordered By: Delano Francis on 09-22-2024 Basophils/100 WBC (Bld) 0.6 % Normal . [facility] Comment on above: Performed By: #### D DANIELLEAS, LC T4, [id number], SEROTON, TEST F + T, T3R, THYGLOB AB, ESTRADIOL, TPO, SHBG, ESTRONE, INSULIN, PROG #### [facility] , #### T4F, TRISTEN, TSH3, A1C WTH eA, FILIBERTO, GLU, T3F #### [facility] [address] [place] [address] Automated basophil countOrde red By: Delano Francis on 09-22-2024 Basophils (Bld) [#/Vol] 0.0 10*3/uL Normal 0.0-0.2 [facility] Comment on above: Result Comment: PERF ORMED BY: [place] [address] PATHOLOGIST ASSISTANT FACILITY MANAGER JOSE GOEL M.D. Performed By: #### D HEAS, LC T4, [id number], SEROTON, TEST F + T, T3R, THYGLOB AB, ESTRADIOL, TPO, SHBG, ESTRONE, INSULIN, PROG #### [facility] , #### T4F, TRISTEN, TSH3, A1C WTH eA, FILIBERTO, GLU, T3F #### [facility] [address] Automated blood monocyte cou ntOrdered By: Delano Francis on 09-22-2024 Monocytes (Bld) [#/Vol] 0.4 10*3/uL Normal 0.0-0.8 [facility] Comment on above: Performed By: #### D HEAS, LC T4, [id number], SEROTON, TEST F + T, T3R, THYGLOB AB, ESTRADIOL, TPO, SHBG, ESTRONE, INSULIN, PROG #### [facility] , #### T4F, TRISTEN, TSH3, A1C WTH eA, FILIBERTO, GLU, T3F #### [facility] [address] Automated eosinophil %Ordere d By: Delano Francis on 09-22-2024 Eosinophils/100 WBC (Bld) 1.7 % Normal . [facility] Comment on above: Performed By: #### D HEAS, LC T4, [id number], SEROTON, TEST F + T, T3R, THYGLOB AB, ESTRADIOL, TPO, SHBG, ESTRONE, INSULIN, PROG #### [facility] , #### T4F, TRISTEN, TSH3, A1C WTH eA, FILIBERTO, GLU, T3F #### [facility] [address] [place] [address] Automated eosinophil countOr dered By: Delano Francis on 09-22-2024 Eosinophils (Bld) [#/Vol] 0.1 10*3/uL Normal 0.0-0.45 [facility] Comment on above: Performed By: #### D HEAS, LC T4, [id number], SEROTON, TEST F + T, T3R, THYGLOB AB, ESTRADIOL, TPO, SHBG, ESTRONE, INSULIN, PROG #### [facility] , #### T4F, TRISTEN, TSH3, A1C WTH eA, FILIBERTO, GLU, T3F #### [facility] [address] Automated monocyte %Ordered By: Delano Francis on 09-22-2024 Monocytes/100 WBC (Bld) 8.7 % Normal . [facility] Comment on above: Performed By: #### D HEAS, LC T4, [id number], SEROTON, TEST F + T, T3R, THYGLOB AB, ESTRADIOL, TPO, SHBG, ESTRONE, INSULIN, PROG #### [facility] , #### T4F, TRISTEN, TSH3, A1C WTH eA, FILIBERTO, GLU, T3F #### [facility] [address] Automated neutrophil %Ordere d By: Delano Francis on 09-22-2024 Neutrophils/100 WBC (Bld) 63.7 % Normal . [facility] Comment on above: Performed By: #### D HEAS, LC T4, [id number], SEROTON, TEST F + T, T3R, THYGLOB AB, ESTRADIOL, TPO, SHBG, ESTRONE, INSULIN, PROG #### [facility] , #### T4F, TRISTEN, TSH3, A1C WTH eA, FILIBERTO, GLU, T3F #### [address] Basophils Auto (Bld) [#/Vol] Ordered By: Delano Francis on 09-22-2024 Basophils (Bld) [#/Vol] Automated basophil count 0.0-0.2 [facility] Basophils/100 WBC Auto (Bld) Ordered By: Delano Francis on 09-22-2024 Basophils/100 WBC (Bld) Automated basophil % . [facility] Calcium [Mass/volume] in Ser um or PlasmaOrdered By: Delano Francis on 09-22-2024 Calcium [Mass/Vol] 9.4 mg/dL Normal 8.6-10.3 [facility] Comment on above: Performed By: #### D HEAS, LC T4, [id number], SEROTON, TEST F + T, T3R, THYGLOB AB, ESTRADIOL, TPO, SHBG, ESTRONE, INSULIN, PROG #### [facility] , #### T4F, TRISTEN, TSH3, A1C WTH eA, FILIBERTO, GLU, T3F #### [facility] [address] [place] [id number] [facility] Calcium [Mass/Vol] Calcium [Mass/volume ] in Serum or Plasma 8.6-10.3 [facility] Carbon dioxide, total [Moles /volume] in Serum or PlasmaOrdered By: Delano Francis on 09-22-2024 CO2 [Moles/Vol] 29.2 mmol/L Normal 21.0-31.0 [facility] Comment on above: Performed By: #### D VENITA, LC T4, [id number], SEROTON, TEST F + T, T3R, THYGLOB AB, ESTRADIOL, TPO, SHBG, ESTRONE, INSULIN, PROG #### [facility] , #### T4F, TRISTEN, TSH3, A1C WTH eA, FILIBERTO, GLU, T3F #### [facility] [address] [place] [id number] [facility] CO2 [Moles/Vol] Carbon dioxide, tota l [Moles/volume] in Serum or Plasma 21.0-31.0 [facility] Chloride [Moles/volume] in S stevo or PlasmaOrdered By: Delano Francis on 09-22-2024 Chloride [Moles/Vol] 105 mmol/L Normal 98-107 [facility] Comment on above: Performed By: #### D VENITA, LC T4, [id number], SEROTON, TEST F + T, T3R, THYGLOB AB, ESTRADIOL, TPO, SHBG, ESTRONE, INSULIN, PROG #### [facility] , #### T4F, TRISTEN, TSH3, A1C WTH eA, FILIBERTO, GLU, T3F #### [facility] [address] [place] [id number] [facility] Chloride [Moles/Vol] Chloride [Moles/vol ume] in Serum or Plasma 98-107 [facility] Cholesterol [Mass/volume] in Serum or PlasmaOrdered By: Delano Francis on 09-22-2024 Cholesterol [Mass/Vol] 217 mg/dL High 140-200 [facility] Comment on above: Chol less than 200 m g/dl low riskChol 201-239 mg/dl borderline riskChol 240 mg/dl and greater high risk Result Comment: Chol less than 200 mg/dl low risk Chol 201-239 mg/dl borderline risk Chol 240 mg/dl and greater high risk Performed By: #### D JOSSE NATHAN T4, [id number], SEROTON, TEST F + T, T3R, THYGLOB AB, ESTRADIOL, TPO, SHBG, ESTRONE, INSULIN, PROG #### [facility] , #### T4F, TRISTEN, TSH3, A1C WTH eA, FILIBERTO, GLU, T3F #### [facility] [address] [place] [address] Cholesterol [Mass/Vol] Cholesterol [Mass/volume] in Serum or Plasma High 140-200 [facility] Comment on above: Chol less than 200 m g/dl low riskChol 201-239 mg/dl borderline riskChol 240 mg/dl and greater high risk Cholesterol in HDL [Mass/vol ume] in Serum or PlasmaOrdered By: Delano Francis on 09-22-2024 Cholesterol in HDL [Mass/Vol] Serum or plasma high density lipoprotein (HDL) cholesterol measurement 23 [facility] Comment on above: HDL CHOL ATP-III CLA SSIFICATION Cardiovascular RiskHDL > or equal to 60 mg/dL LOWHDL < 40 mg/dL HIGH Cholesterol in LDL Calc [Mas s/Vol]Ordered By: Delano Francis on 09-22-2024 Cholesterol in LDL [Mass/Vol] 148 mg/dL High 0-100 [facility] Comment on above: LDL ATP III CLASSIFI CATIONLDL less than 100 mg/dL OptimalLDL 100-129 mg/dL Near or above optimalLDL 130-159 mg/dL Borderline highLDL 160-189 mg/dL HighLDL greater than 189 mg/dL Very high Cholesterol in LDL [Mass/Vol] Cholesterol in LDL [Mass/volume] in Serum or Plasma by calculation High 0-100 [facility] Comment on above: LDL ATP III CLASSIFI CATIONLDL less than 100 mg/dL OptimalLDL 100-129 mg/dL Near or above optimalLDL 130-159 mg/dL Borderline highLDL 160-189 mg/dL HighLDL greater than 189 mg/dL Very high Cholesterol in VLDL Calc [Ma ss/Vol]Ordered By: Delano Francis on 09-22-2024 Cholesterol in VLDL [Mass/Vol] 10 mg/dL [facility] Cholesterol in VLDL [Mass/Vol] Cholesterol in VLDL [Mass/volume] in Serum or Plasma by calculation [facility] Creatinine [Mass/volume] in Serum or PlasmaOrdered By: Delano Francis on 09-22-2024 Creatinine [Mass/Vol] 0.73 mg/dL Normal 0.60-1.20 [facility] Comment on above: Performed By: #### D HEAS, LC T4, [id number], SEROTON, TEST F + T, T3R, THYGLOB AB, ESTRADIOL, TPO, SHBG, ESTRONE, INSULIN, PROG #### [facility] , #### T4F, TRISTEN, TSH3, A1C WTH eA, FILIBERTO, GLU, T3F #### [facility] [address] Creatinine [Mass/Vol] Creatinine [Mass/v olume] in Serum or Plasma 0.60-1.20 [facility] Employee Basic Metabolic [place] 09-22-2024 GFR/1.73 sq M.predicted MDRD (S/P/Bld) [Vol rate/Area] mL/min/{1.73_m2} Normal [facility] Comment on above: Performed By: #### D HEAS, LC T4, [id number], SEROTON, TEST F + T, T3R, THYGLOB AB, ESTRADIOL, TPO, SHBG, ESTRONE, INSULIN, PROG #### [facility] , #### T4F, TRISTEN, TSH3, A1C WTH eA, FILIBERTO, GLU, T3F #### [facility] [address] Employee Complete Blood Coun ton 09-22-2024 Mean Corpuscular HGB Conc 34.2 g/dL Normal 32.0-35.0 [facility] Comment on above: Performed By: #### D HEAS, LC T4, [id number], SEROTON, TEST F + T, T3R, THYGLOB AB, ESTRADIOL, TPO, SHBG, ESTRONE, INSULIN, PROG #### [facility] , #### T4F, TRISTEN, TSH3, A1C WTH eA, FILIBERTO, GLU, T3F #### [facility] [address] NRBC% 0.0 /100{WBC} Normal 0-0.5 [facility] Comment on above: Performed By: #### D HEAS, LC T4, [id number], SEROTON, TEST F + T, T3R, THYGLOB AB, ESTRADIOL, TPO, SHBG, ESTRONE, INSULIN, PROG #### [facility] , #### T4F, TRISTEN, TSH3, A1C WTH eA, FILIBERTO, GLU, T3F #### [address] Employee Lipid Profileon LDL Cholesterol,Calculated 148 mg/dL High 0-100 [facility] Comment on above: Result Comment: LDL ATP III CLASSIFICATION LDL less than 100 mg/dL Optimal LDL 100-129 mg/dL Near or above optimal LDL 130-159 mg/dL Borderline high LDL 160-189 mg/dL High LDL greater than 189 mg/dL Very high Performed By: #### D VENITA, LC T4, [id number], SEROTON, TEST F + T, T3R, THYGLOB AB, ESTRADIOL, TPO, SHBG, ESTRONE, INSULIN, PROG #### [facility] , #### T4F, TRISTEN, TSH3, A1C WTH eA, FILIBERTO, GLU, T3F #### [address] Triglyceride w/Reflex 52 mg/dL Normal 0-149 [facility] Comment on above: Result Comment: TRIG ATP III CLASSIFICATION TRIG less than 150 mg/dL Normal TRIG 150-199 mg/dL Borderline high TRIG 200-500 mg/dL High TRIG greater than 500 mg/dL Very high Standard traceable to the Center for Disease Conrtrol and Prevention (CDC) test method. Performed By: #### D HEAS, LC T4, [id number], SEROTON, TEST F + T, T3R, THYGLOB AB, ESTRADIOL, TPO, SHBG, ESTRONE, INSULIN, PROG #### [facility] , #### T4F, TRISTEN, TSH3, A1C WTH eA, FILIBERTO, GLU, T3F #### [address] VLDL CHOLESTEROL 10 mg/dL Normal [facility] Comment on above: Performed By: #### D HEAS, LC T4, [id number], SEROTON, TEST F + T, T3R, THYGLOB AB, ESTRADIOL, TPO, SHBG, ESTRONE, INSULIN, PROG #### [facility] , #### T4F, TRISTEN, TSH3, A1C WTH eA, FILIBERTO, GLU, T3F #### [address] Employee Thyroid Stim [place] 09-22-2024 Employee Thyroid Stim Hormone 2.30 u[iU]/mL Normal 0.45-5.33 [facility] Comment on above: Result Comment: PERF ORMED BY: [place] [address] PATHOLOGIST ASSISTANT FACILITY MANAGER JOSE GOEL M.D. Performed By: #### D HEAS, LC T4, [id number], SEROTON, TEST F + T, T3R, THYGLOB AB, ESTRADIOL, TPO, SHBG, ESTRONE, INSULIN, PROG #### [facility] , #### T4F, TRISTEN, TSH3, A1C WTH eA, FILIBERTO, GLU, T3F #### [address] Eosinophils Auto (Bld) [#/Vo l]Ordered By: Delano Francis on 09-22-2024 Eosinophils (Bld) [#/Vol] Automated eosinophil count 0.0-0.45 [facility] Eosinophils/100 WBC Auto (Bl d)Ordered By: Delano Francis on 09-22-2024 Eosinophils/100 WBC (Bld) Automated eosinophil % . [facility] Erythrocyte distribution wid th Auto (RBC) [Ratio]Ordered By: Delano Francis on 09-22-2024 Erythrocyte distribution width (RBC) [Ratio] Erythrocyte distribution width [Ratio] by Automated count 11.9-15.3 [facility] Erythrocyte distribution wid th [Ratio] by Automated countOrdered By: Delano Francis on 09-22-2024 Erythrocyte distribution width (RBC) [Ratio] 13.2 % Normal 11.9-15.3 [facility] Comment on above: Performed By: #### D HEAS, LC T4, [id number], SEROTON, TEST F + T, T3R, THYGLOB AB, ESTRADIOL, TPO, SHBG, ESTRONE, INSULIN, PROG #### [facility] , #### T4F, TRISTEN, TSH3, A1C WTH eA, FILIBERTO, GLU, T3F #### [facility] [address] [place] [address] Erythrocytes [#/volume] in B lood by Automated countOrdered By: Delano Francis on 09-22-2024 RBC (Bld) [#/Vol] 3.91 10*6/uL Normal 3.60-5.00 [facility] Comment on above: Performed By: #### D HEAS, LC T4, [id number], SEROTON, TEST F + T, T3R, THYGLOB AB, ESTRADIOL, TPO, SHBG, ESTRONE, INSULIN, PROG #### [facility] , #### T4F, TRISTEN, TSH3, A1C WTH eA, FILIBERTO, GLU, T3F #### [facility] [address] [place] [address] [place] Glucose [Mass/volume] in Ser um or PlasmaOrdered By: Delano Francis on 09-22-2024 Glucose [Mass/Vol] 83 mg/dL Normal 70-100 [facility] Comment on above: Performed By: #### D HEAS, LC T4, [id number], SEROTON, TEST F + T, T3R, THYGLOB AB, ESTRADIOL, TPO, SHBG, ESTRONE, INSULIN, PROG #### [facility] , #### T4F, TRISTEN, TSH3, A1C WTH eA, FILIBERTO, GLU, T3F #### [facility] [address] Glucose [Mass/Vol] Glucose [Mass/volume ] in Serum or Plasma 70-100 [facility] Hematocrit Auto (Bld) [Volum e fraction]Ordered By: Delano Francis on 09-22-2024 Hematocrit (Bld) [Volume fraction] Hematocrit [Volume Fraction] of Blood by Automated count 34.0-46.4 [facility] Hematocrit [Volume Fraction] of Blood by Automated countOrdered By: Delano Francis on 09-22-2024 Hematocrit (Bld) [Volume fraction] 35.9 % Normal 34.0-46.4 [facility] Comment on above: Performed By: #### D DANIELLEAS, LC T4, [id number], SEROTON, TEST F + T, T3R, THYGLOB AB, ESTRADIOL, TPO, SHBG, ESTRONE, INSULIN, PROG #### [facility] , #### T4F, TRISTEN, TSH3, A1C WTH eA, FILIBERTO, GLU, T3F #### [facility] [address] Hemoglobin [Mass/volume] in BloodOrdered By: Delano Francis on 09-22-2024 Hemoglobin (Bld) [Mass/Vol] 12.3 g/dL Normal 11.8-15.4 [facility] Comment on above: Performed By: #### D HEAS, LC T4, [id number], SEROTON, TEST F + T, T3R, THYGLOB AB, ESTRADIOL, TPO, SHBG, ESTRONE, INSULIN, PROG #### [facility] , #### T4F, TRISTEN, TSH3, A1C WTH eA, FILIBERTO, GLU, T3F #### [facility] [address] [place] [address] Hemoglobin (Bld) [Mass/Vol] Hemoglobin [Mass/volume] in Blood 11.8-15.4 [facility] Leukocytes [#/volume] correc calvin for nucleated erythrocytes in Blood by Automated counOrdered By: Delano Francis on 09-22-2024 WBC corrected for nucl RBC Auto (Bld) [#/Vol] 5.1 10*3/uL 3.8-11.6 [facility] WBC corrected for nucl RBC Auto (Bld) [#/Vol] Leukocytes [#/volume] corrected for nucleated erythrocytes in Blood by Automated coun 3.8-11.6 [facility] Leukocytes [#/volume] in Blo od by Automated countOrdered By: Delano Francis on 09-22-2024 WBC (Bld) [#/Vol] 5.1 10*3/uL Normal 3.8-11.6 [facility] Comment on above: Performed By: #### D HEAS, LC T4, [id number], SEROTON, TEST F + T, T3R, THYGLOB AB, ESTRADIOL, TPO, SHBG, ESTRONE, INSULIN, PROG #### [facility] , #### T4F, TRISTEN, TSH3, A1C WTH eA, FILIBERTO, GLU, T3F #### [facility] [address] [place] [address] [place] Lymphocytes Auto (Bld) [#/Vo l]Ordered By: Delano Francis on 09-22-2024 Lymphocytes (Bld) [#/Vol] Lymphocytes [#/volume] in Blood by Automated count .00-4.8 [facility] Lymphocytes [#/volume] in Bl ood by Automated countOrdered By: Delano Francis on 09-22-2024 Lymphocytes (Bld) [#/Vol] 1.3 10*3/uL Normal 1.00-4.8 [facility] Comment on above: Performed By: #### D HEAS, LC T4, [id number], SEROTON, TEST F + T, T3R, THYGLOB AB, ESTRADIOL, TPO, SHBG, ESTRONE, INSULIN, PROG #### [facility] , #### T4F, TRISTEN, TSH3, A1C WTH eA, FILIBERTO, GLU, T3F #### [facility] [address] [place] [address] [place] Lymphocytes/100 WBC Auto (Bl d)Ordered By: Delano Francis on 09-22-2024 Lymphocytes/100 WBC (Bld) Lymphocytes/100 leukocytes in Blood by Automated count . [facility] Lymphocytes/100 leukocytes i n Blood by Automated countOrdered By: Delano Francis on 09-22-2024 Lymphocytes/100 WBC (Bld) 25.3 % Normal . [facility] Comment on above: Performed By: #### D HEAS, LC T4, [id number], SEROTON, TEST F + T, T3R, THYGLOB AB, ESTRADIOL, TPO, SHBG, ESTRONE, INSULIN, PROG #### [facility] , #### T4F, TRISTEN, TSH3, A1C WTH eA, FILIBERTO, GLU, T3F #### [facility] [address] MCH Auto (RBC) [Entitic mass ]Ordered By: Delano Francis on 09-22-2024 MCH (RBC) [Entitic mass] MCH [Entitic mass] by Automated count 24.7-34.3 [facility] MCH [Entitic mass] by Automa calvin countOrdered By: Delano Francis on 09-22-2024 MCH (RBC) [Entitic mass] 31.4 pg Normal 24.7-34.3 [facility] Comment on above: Performed By: #### D HEAS, LC T4, [id number], SEROTON, TEST F + T, T3R, THYGLOB AB, ESTRADIOL, TPO, SHBG, ESTRONE, INSULIN, PROG #### [facility] , #### T4F, TRISTEN, TSH3, A1C WTH eA, FILIBERTO, GLU, T3F #### [facility] [address] MCHC Auto (RBC) [Mass/Vol]Or dered By: Delano Francis on 09-22-2024 MCHC (RBC) [Mass/Vol] 34.2 g/dL 32.0-35.0 [facility] MCHC (RBC) [Mass/Vol] MCHC [Mass/volume] by Automated count 32.0-35.0 [facility] MCV Auto (RBC) [Entitic vol] Ordered By: Delano Francis on 09-22-2024 MCV (RBC) [Entitic vol] MCV [Entitic vol ume] by Automated count 80-100 [facility] MCV [Entitic volume] by Auto mated countOrdered By: Delano Francis on 09-22-2024 MCV (RBC) [Entitic vol] 91.7 fL Normal 80-100 [facility] Comment on above: Performed By: #### D HEAS, LC T4, [id number], SEROTON, TEST F + T, T3R, THYGLOB AB, ESTRADIOL, TPO, SHBG, ESTRONE, INSULIN, PROG #### [facility] , #### T4F, TRISTEN, TSH3, A1C WTH eA, FILIBERTO, GLU, T3F #### [facility] [address] Monocytes Auto (Bld) [#/Vol] Ordered By: Delano Francis on 09-22-2024 Monocytes (Bld) [#/Vol] Automated blood monocyte count 0.0-0.8 [facility] Monocytes/100 WBC Auto (Bld) Ordered By: Delano Francis on 09-22-2024 Monocytes/100 WBC (Bld) Automated monocyte % . [facility] Neutrophils Auto (Bld) [#/Vo l]Ordered By: Delano Francis on 09-22-2024 Neutrophils (Bld) [#/Vol] Neutrophils [#/volume] in Blood by Automated count 1.8-7.7 [facility] Neutrophils [#/volume] in Bl ood by Automated countOrdered By: Delano Francsi on 09-22-2024 Neutrophils (Bld) [#/Vol] 3.2 10*3/uL Normal 1.8-7.7 [facility] Comment on above: Performed By: #### D HEAS, LC T4, [id number], SEROTON, TEST F + T, T3R, THYGLOB AB, ESTRADIOL, TPO, SHBG, ESTRONE, INSULIN, PROG #### [facility] , #### T4F, TRISTEN, TSH3, A1C WTH eA, FILIBERTO, GLU, T3F #### [facility] [address] [place] [address] [place] Neutrophils/100 WBC Auto (Bl d)Ordered By: Delano Francis on 09-22-2024 Neutrophils/100 WBC (Bld) Automated neutrophil % . [facility] No Panel InformationOrdered By: Delano Francis on 09-22-2024 Estimated GFR (CKD-EPI) > 60.0 mL/Min [facility] Creatinine Clearance (Chem N/A [facility] Nucleated erythrocytes [Pres ence] in Blood by Automated countOrdered By: Delano Francis on 09-22-2024 Nucleated RBC Auto Ql (Bld) 0.0 /100{WBC} 0-0.5 [facility] Nucleated RBC Auto Ql (Bld) Nucleated erythrocytes [Presence] in Blood by Automated count 0-0.5 [facility] Platelet mean volume Auto (B ld) [Entitic vol]Ordered By: Delano Francis on 09-22-2024 Platelet mean volume (Bld) [Entitic vol] Platelet mean volume [Entitic volume] in Blood by Automated count 6.3-10.7 [facility] Platelet mean volume [Entiti c volume] in Blood by Automated countOrdered By: Delano Francis on 09-22-2024 Platelet mean volume (Bld) [Entitic vol] 7.3 fL Normal 6.3-10.7 [facility] Comment on above: Performed By: #### D HESUE, JOSSE T4, [id number], SEROTON, TEST F + T, T3R, THYGLOB AB, ESTRADIOL, TPO, SHBG, ESTRONE, INSULIN, PROG #### [facility] , #### T4F, TRISTEN, TSH3, A1C WTH eA, FILIBERTO, GLU, T3F #### [facility] [address] Platelets Auto (Bld) [#/Vol] Ordered By: Delano Francis on 09-22-2024 Platelets (Bld) [#/Vol] Platelets [#/vol ume] in Blood by Automated count 150-450 [facility] Platelets [#/volume] in Bloo d by Automated countOrdered By: Delano Francis on 09-22-2024 Platelets (Bld) [#/Vol] 328 10*3/uL Normal 150-450 [facility] Comment on above: Performed By: #### D HEAS, LC T4, [id number], SEROTON, TEST F + T, T3R, THYGLOB AB, ESTRADIOL, TPO, SHBG, ESTRONE, INSULIN, PROG #### [facility] , #### T4F, TRISTEN, TSH3, A1C WTH eA, FILIBERTO, GLU, T3F #### [facility] [address] [place] [address] [place] Potassium [Moles/volume] in Serum or PlasmaOrdered By: Delano Francis on 09-22-2024 Potassium [Moles/Vol] 4.5 mmol/L Normal 3.5-5.1 [facility] Comment on above: Performed By: #### D HEAS, LC T4, [id number], SEROTON, TEST F + T, T3R, THYGLOB AB, ESTRADIOL, TPO, SHBG, ESTRONE, INSULIN, PROG #### [facility] , #### T4F, TRISTEN, TSH3, A1C WTH eA, FILIBERTO, GLU, T3F #### [facility] [address] [place] [address] [place] Potassium [Moles/Vol] Potassium [Moles/v olume] in Serum or Plasma 3.5-5.1 [facility] RBC Auto (Bld) [#/Vol]Ordere d By: Delano Francis on 09-22-2024 RBC (Bld) [#/Vol] Erythrocytes [#/volu me] in Blood by Automated count 3.60-5.00 [facility] Serum or plasma anion gap de terminationOrdered By: Delano Francis on 09-22-2024 Anion gap [Moles/Vol] 8.3 mmol/L Normal 6.0-15.0 [facility] Comment on above: Performed By: #### D HEAS, LC T4, [id number], SEROTON, TEST F + T, T3R, THYGLOB AB, ESTRADIOL, TPO, SHBG, ESTRONE, INSULIN, PROG #### [facility] , #### T4F, TRISTEN, TSH3, A1C WTH eA, FILIBERTO, GLU, T3F #### [facility] [address] Anion gap [Moles/Vol] Serum or plasma an ion gap determination 6.0-15.0 [facility] Serum or plasma high density lipoprotein (HDL) cholesterol measurementOrdered By: Delano Francis on 09-22-2024 Cholesterol in HDL [Mass/Vol] 59 mg/dL Normal 23-92 [facility] Comment on above: HDL CHOL ATP-III CLA SSIFICATION Cardiovascular RiskHDL > or equal to 60 mg/dL LOWHDL < 40 mg/dL HIGH Result Comment: HDL CHOL ATP-III CLASSIFICATION Cardiovascular Risk HDL > or equal to 60 mg/dL LOW HDL < 40 mg/dL HIGH Performed By: #### D VENITA, LC T4, [id number], SEROTON, TEST F + T, T3R, THYGLOB AB, ESTRADIOL, TPO, SHBG, ESTRONE, INSULIN, PROG #### [facility] , #### T4F, TRISTEN, TSH3, A1C WTH eA, FILIBERTO, GLU, T3F #### [facility] [address] Serum or plasma total choles terol/high density lipoprotein (HDL) cholesterol mass ratOrdered By: Delano Francis on 09-22-2024 Cholesterol.total/Alivia sterol in HDL [Mass ratio] 3.7 {ratio} Normal <5.0 [facility] Comment on above: Performed By: #### D VENITA, LC T4, [id number], SEROTON, TEST F + T, T3R, THYGLOB AB, ESTRADIOL, TPO, SHBG, ESTRONE, INSULIN, PROG #### [facility] , #### T4F, TRISTEN, TSH3, A1C WTH eA, FILIBERTO, GLU, T3F #### [facility] [address] Cholesterol.total/Alivia sterol in HDL [Mass ratio] Serum or plasma total cholesterol/high density lipoprotein (HDL) cholesterol mass rat <5.0 [facility] Sodium [Moles/volume] in Ser um or PlasmaOrdered By: Delano Francis on 09-22-2024 Sodium [Moles/Vol] 138 mmol/L Normal 136-145 [facility] Comment on above: Performed By: #### D VENITA, JOSSE T4, [id number], SEROTON, TEST F + T, T3R, THYGLOB AB, ESTRADIOL, TPO, SHBG, ESTRONE, INSULIN, PROG #### [facility] , #### T4F, TRISTEN, TSH3, A1C WTH eA, FILIBERTO, GLU, T3F #### [facility] [address] Sodium [Moles/Vol] Sodium [Moles/volume ] in Serum or Plasma 136-145 [facility] Thyrotropin [Units/volume] i n Serum or PlasmaOrdered By: Delano Francis on 09-22-2024 TSH Qn 2.30 m[IU]/L 0.45-5.33 [facility] TSH Qn Thyrotropin [Units/volume] in Serum or Plasma 0.45-5.33 [facility] Triglyceride [Mass/volume] i n Serum or PlasmaOrdered By: Delano Francis on 09-22-2024 Triglyceride [Mass/Vol] 52 mg/dL 0-149 [facility] Comment on above: TRIG ATP III CLASSIF ICATIONTRIG less than 150 mg/dL NormalTRIG 150-199 mg/dL Borderline highTRIG 200-500 mg/dL High TRIG greater than 500 mg/dL Very highStandard traceable to the Center for Disease Conrtrol and Prevention (CDC) test method. Triglyceride [Mass/Vol] Triglyceride [Mass/volume] in Serum or Plasma 0-149 [facility] Comment on above: TRIG ATP III CLASSIF ICATIONTRIG less than 150 mg/dL NormalTRIG 150-199 mg/dL Borderline highTRIG 200-500 mg/dL High TRIG greater than 500 mg/dL Very highStandard traceable to the Center for Disease Conrtrol and Prevention (CDC) test method. Urea nitrogen [Mass/volume] in Serum or PlasmaOrdered By: Delano Francis on 09-22-2024 Urea nitrogen [Mass/Vol] 9 mg/dL Normal 7-25 [facility] Comment on above: Performed By: #### D HEAS, LC T4, [id number], SEROTON, TEST F + T, T3R, THYGLOB AB, ESTRADIOL, TPO, SHBG, ESTRONE, INSULIN, PROG #### [facility] , #### T4F, TRISTEN, TSH3, A1C WTH eA, FILIBERTO, GLU, T3F #### [facility] [address] Urea nitrogen [Mass/Vol] Urea nitrogen [Mass/volume] in Serum or Plasma 06-23 [facility] WBC Auto (Bld) [#/Vol]Ordere d By: Delano Francis on 09-22-2024 WBC (Bld) [#/Vol] Leukocytes [#/volume ] in Blood by Automated count 3.8-11.6 [facility] IGP,APTIMA HPV,AGE GDLNon AGE GDLN ACOG TESTING Note . [facility] Comment on above: TESTS RESULT FLAG UN ITS REF RANGE LAB Clinician Provided Cytology Information Source.............Cervix;Endocervix No. of containers..01 ThinPrep Vial Age Algo ACOG Lara... 30-65 01 FLAG LEGEND: L-Low Normal,H-High Normal,LL-Alert Low,HH-Alert High <-Panic Low,>-Panic High,A-Abnormal,AA-Critical Abnormal Performed at: 01 =[facility] [address] [place] [address] Ilana Heath MD, HPV APTIMA Negative Negative [facility] Comment on above: This nucleic acid am plification test detects fourteen high- risk HPV types (16,18,31,33,35,39,45,51,52,56,58,59,66,68) without differentiation. Performed at: = - [address] [id number] Millinery Worker: Ilana Heath MD, Phone: [phone] Performed at: - [address], [place] [id number] Millinery Worker: Ilana Heath MD, Phone: [phone] IGP, APTIMA HPV, RFX 16/18,45 Note . [facility] Comment on above: TESTS RESULT FLAG UN ITS REF RANGE LAB DIAGNOSIS: 02 NEGATIVE FOR INTRAEPITHELIAL LESION OR MALIGNANCY. Specimen adequacy: 02 Satisfactory for evaluation. No endocervical component is identified. Performed by: Peg Camargo, Radiology Administrator (ASCP) . 02 Note: Note 02 The [...] Low,>-Panic High,A-Abnormal,AA-Critical Abnormal Performed at: 02 [facility] [address] [place] [address] Ilana Heath MD, BRUSH-SPATULA C[facility]IX [facility] 1,25 Dihydroxy Vit D Calcitr olon 01-07-2024 1,25 Dihydroxy Vit D Calcitrol 56.6 pg/mL Normal 24.8-81.5 [facility] Comment on above: Result Comment: Perf ormed at: - [facility] [address] [id number] Millinery Worker: Quinton Wolf MD, Phone: [phone] Performed By: #### Adria NATHAN, LC T4, [id number], SEROTON, TEST F + T, T3R, THYGLOB AB, ESTRADIOL, TPO, SHBG, ESTRONE, INSULIN, PROG #### [facility] , #### T4F, TRISTEN, TSH3, A1C WTH eA, FILIBERTO, GLU, T3F #### [address] A1C with Estimated Average G destiny 01-07-2024 Glucose [Mass/Vol] 105 mg/dL Normal The [facility] Comment on above: Result Comment: PERF ORMED BY: [place] [address] PATHOLOGIST ASSISTANT FACILITY MANAGER JOSE GOEL M.D. Performed By: #### Adria NATHAN, LC T4, [id number], SEROTON, TEST F + T, T3R, THYGLOB AB, ESTRADIOL, TPO, SHBG, ESTRONE, INSULIN, PROG #### [facility] , #### T4F, TRISTEN, TSH3, A1C WTH eA, FILIBERTO, GLU, T3F #### [address] Antithyroglobulin Abon 01-07 Antithyroglobulin Ab <1.0 Normal 0.0-0.9 The [facility] Comment on above: Result Comment: Thyr oglobulin Antibody measured by Mitul Mariah Methodology Performed at: [address] [id number] Millinery Worker: Baudilio Leyva PhD, Phone: [phone] Performed By: #### D DANIELLEAS, LC T4, [id number], SEROTON, TEST F + T, T3R, THYGLOB AB, ESTRADIOL, TPO, SHBG, ESTRONE, INSULIN, PROG #### [facility] , #### T4F, TRISTEN, TSH3, A1C WTH eA, FILIBERTO, GLU, T3F #### [address] Cortisolon 01-07-2024 Cortisol 6.8 ug/dL Normal [facility] Comment on above: Result Comment: Refe rence range: AM 6 - 24 ug/dl PM <10 ug/dl [facility] Laboratory car hiker and method: Qubole UNICEL DXI, POLYCLONAL ANTIBODY CORTISOL ASSAY. PERFORMED BY: [place] [address] PATHOLOGIST ASSISTANT FACILITY MANAGER JOSE GOEL M.D. Performed By: #### D VENITA, LC T4, [id number], SEROTON, TEST F + T, T3R, THYGLOB AB, ESTRADIOL, TPO, SHBG, ESTRONE, INSULIN, PROG #### [facility] , #### T4F, TRISTEN, TSH3, A1C WTH eA, FILIBERTO, GLU, T3F #### [address] Dehydroepiandrosterone Sulfa teOrdered By: Deisy Villar on 01-07-2024 Dehydroepiandrosterone Sulfate 174.0 ug/dL Normal 84.8-378.0 [facility] Comment on above: Performed By: #### D HEAS, LC T4, [id number], SEROTON, TEST F + T, T3R, THYGLOB AB, ESTRADIOL, TPO, SHBG, ESTRONE, INSULIN, PROG #### [facility] , #### T4F, TRISTEN, TSH3, A1C WTH eA, FILIBERTO, GLU, T3F #### [facility] [address] [place] [id number] [facility] Estradiolon 01-07-2024 Estradiol 300.0 pg/mL Normal . The [facility] Comment on above: Result Comment: Adul t Female Range Follicular phase 12.5 - 166.0 Ovulation phase 85.8 - 498.0 Luteal phase 43.8 - 211.0 Postmenopausal <6.0 - 54.7 1st trimester 215.0 - >4300.0 Elías ECLIA methodology Performed By: #### D VENITA, LC T4, [id number], SEROTON, TEST F + T, T3R, THYGLOB AB, ESTRADIOL, TPO, SHBG, ESTRONE, INSULIN, PROG #### [facility] , #### T4F, TRISTEN, TSH3, A1C WTH eA, FILIBERTO, GLU, T3F #### [facility] [address] [place] [id number] [facility] Estrone, Serumon 01-07-2024 Estrone, Serum 46 pg/mL Normal 27-231 [facility] Comment on above: Result Comment: Rang e Adult (Premenopausal) 27 - 231 Menstrual Cycle (1-10 days) 19 - 149 Menstrual Cycle (11-20 days) 32 - 176 Menstrual Cycle (21-30 days) 37 - 200 Performed at: - [address] [id number] Millinery Worker: Quinton Wolf MD, Phone: [phone] Performed By: #### D VENITA, LC T4, [id number], SEROTON, TEST F + T, T3R, THYGLOB AB, ESTRADIOL, TPO, SHBG, ESTRONE, INSULIN, PROG #### [facility] , #### T4F, TRISTEN, TSH3, A1C WTH eA, FILIBERTO, GLU, T3F #### [facility] [address] [place] [id number] [place] Ferritin [Mass/volume] in Se rum or PlasmaOrdered By: Deisy Villar on 01-07-2024 Ferritin [Mass/Vol] 44.8 ng/mL Normal 11.0-306.8 [facility] Comment on above: Performed By: #### D HEAS, LC T4, [id number], SEROTON, TEST F + T, T3R, THYGLOB AB, ESTRADIOL, TPO, SHBG, ESTRONE, INSULIN, PROG #### [facility] , #### T4F, TRISTEN, TSH3, A1C WTH eA, FILIBERTO, GLU, T3F #### [facility] [address] Free testosterone measuremen t by LC-MS/MSOrdered By: Deisy Villar on 01-07-2024 Testosterone Free [Mass/Vol] 0.3 pg/mL 0.0-4.2 [facility] Comment on above: Performed at: [address] [id number] Director: Baudilio Leyva PhD, Phone: [phone] at: - [facility] [id number] Director: Quinton Wolf MD, Phone: [phone] Glucose [Mass/volume] in Ser um or PlasmaOrdered By: Deisy Villar on 01-07-2024 Glucose [Mass/Vol] 84 mg/dL Normal 70-100 [facility] Comment on above: ADA recommended refe rence rangeRandom Glucose Reference Range is dependent on time and content of last meal. Glucose of more than 200 mg/dL in a nonstressed, ambulatory subject supports the diagnosis of Diabetes Mellitus. Result Comment: [place] om Glucose Reference Range is dependent on time and content of last meal. Glucose of more than 200 mg/dL in a nonstressed, ambulatory subject supports the diagnosis of Diabetes Mellitus. ADA recommended reference range Performed By: #### D HEAS, LC T4, [id number], SEROTON, TEST F + T, T3R, THYGLOB AB, ESTRADIOL, TPO, SHBG, ESTRONE, INSULIN, PROG #### [facility] , #### T4F, TRISTEN, TSH3, A1C WTH eA, FILIBERTO, GLU, T3F #### [address] Glucose mean value [Mass/vol ume] in Blood Estimated from glycated hemoglobinOrdered By: Deisy Villar on 01-07-2024 Average glucose Estimated from glycated hemoglobin (Bld) [Mass/Vol] 105 mg/dL [facility] Hemoglobin A1c percentageOrd ered By: Deisy Villar on 01-07-2024 HbA1c (Bld) [Mass fraction] 5.3 % Normal 4.3-5.6 [facility] Comment on above: Increased risk for d iabetes: 5.7 - 6.4diabetes: >6.4glycemic control for adults with diabetes: <7.0 Result Comment: Incr eased risk for diabetes: 5.7 - 6.4 diabetes: >6.4 glycemic control for adults with diabetes: <7.0 Performed By: #### JOSSE SMITH T4, [id number], SEROTON, TEST F + T, T3R, THYGLOB AB, ESTRADIOL, TPO, SHBG, ESTRONE, INSULIN, PROG #### [facility] , #### T4F, TRISTEN, TSH3, A1C WTH eA, FILIBERTO, GLU, T3F #### [address] Insulinon 01-07-2024 Insulin 4.5 u[iU]/mL Normal 2.6-24.9 [facility] Comment on above: Result Comment: Perf ormed at: CB - [facility] [address] [id number] Millinery Worker: Baudilio Leyva PhD, Phone: [phone] Performed By: #### JOSSE SMITH T4, [id number], SEROTON, TEST F + T, T3R, THYGLOB AB, ESTRADIOL, TPO, SHBG, ESTRONE, INSULIN, PROG #### [facility] , #### T4F, TRISTEN, TSH3, A1C WTH eA, FILIBERTO, GLU, T3F #### [address] [address] [facility] Lab Alie Thyroxine (T4)on T4 [Mass/Vol] 8.2 ug/dL Normal 4.5-12.0 [facility] Comment on above: Performed By: #### D HESUE, JOSSE T4, [id number], SEROTON, TEST F + T, T3R, THYGLOB AB, ESTRADIOL, TPO, SHBG, ESTRONE, INSULIN, PROG #### [facility] , #### T4F, TRISTEN, TSH3, A1C WTH eA, FILIBERTO, GLU, T3F #### [facility] [address] No Panel InformationOrdered By: Deisy Villar on 01-07-2024 Free Thyroxine (T4) Direct 8.2 ug/dL 4.5-12.0 [facility] Reverse Triiodothyronine (T3) 18.9 ng/dL 9.2-24.1 [facility] Comment on above: This test was develo ped and its performance characteristicsdetermined by [employer]. It has not been cleared orapproved by the Food and Drug Administration.Performed at: [address] [id number] Director: Quinton Wolf MD, Phone: [phone] Sex Hormone Binding Globulin 95.4 nmol/L 24.6-122.0 [facility] Comment on above: Performed at: [address] [id number] Director: Baudilio Leyva PhD, Phone: [phone] Plasma serotonin measurement (mass/volume)Ordered By: Deisy Villar on 01-07-2024 Serotonin (P) [Mass/Vol] 71 ng/mL 31-207 [facility] Comment on above: This test was develo ped and its performance characteristicsdetermined by [employer]. It has not been cleared orapproved by the Food and Drug Administration.Performed at: [address] [id number] Director: Quinton Wolf MD, Phone: [phone] Progesteroneon 01-07-2024 Progesterone 0.2 ng/mL Normal . The [facility] Comment on above: Result Comment: Foll icular phase 0.1 - 0.9 Luteal phase 1.8 - 23.9 Ovulation phase 0.1 - 12.0 First trimester 11.0 - 44.3 Second trimester 25.4 - 83.3 Third trimester 58.7 - 214.0 Postmenopausal 0.0 - 0.1 Performed By: #### D VENITA, LC T4, [id number], SEROTON, TEST F + T, T3R, THYGLOB AB, ESTRADIOL, TPO, SHBG, ESTRONE, INSULIN, PROG #### [facility] , #### T4F, TRISTEN, TSH3, A1C WTH eA, FILIBERTO, GLU, T3F #### [address] Random cortisol measurementO rdered By: Deisy Villar on 01-07-2024 Cortisol [Mass/Vol] 6.8 ug/dL [facility] Comment on above: [facility] Laboratory car hiker and method:CellayEL DXI, POLYCLONAL ANTIBODY CORTISOL ASSAY.Reference range: AM 6 - 24 ug/dl PM <10 ug/dl Serotonin, Serumon 4 Serotonin, Serum 71 ng/mL Normal 31-207 The [facility] Comment on above: Result Comment: This test was developed and its performance characteristics determined by [facility]. It has not been cleared or approved by the Food and Drug Administration. Performed at: [address] [id number] Millinery Worker: Quinton Wolf MD, Phone: [phone] PERFORMED BY: [place] [address] PATHOLOGIST ASSISTANT FACILITY MANAGER JOSE GOEL M.D. Performed By: #### D VENITA, LC T4, [id number], SEROTON, TEST F + T, T3R, THYGLOB AB, ESTRADIOL, TPO, SHBG, ESTRONE, INSULIN, PROG #### [facility] , #### T4F, TRISTEN, TSH3, A1C WTH eA, FILIBERTO, GLU, T3F #### [facility] [address] [place] [id number] [facility] Serum estrone measurementOrd ered By: Deisy Villar on 01-07-2024 E1 [Mass/Vol] 46 pg/mL 27-231 [facility] Comment on above: Range Adult (Premeno pausal) 27 - 231 Menstrual Cycle (1-10 days) 19 - 149 Menstrual Cycle (11-20 days) 32 - 176 Menstrual Cycle (21-30 days) 37 - 200Performed at: [place] - [facility] [address] [id number] Director: Quinton Wolf MD, Phone: [phone] Serum or plasma calcitriol m easurement (mass/volume)Ordered By: Deisy Villar on 01-07-2024 1,25-dihydroxyvitamin D3 [Mass/Vol] 56.6 pg/mL 24.8-81.5 [facility] Comment on above: Performed at: [place] - L [facility] [address] [id number] Director: Quinton Wolf MD, Phone: [phone] Serum or plasma estradiol (E 2) measurement (mass/volume)Ordered By: Deisy Villar on 01-07-2024 E2 [Mass/Vol] 300.0 pg/mL . [facility] Comment on above: Adult Female Range F ollicular phase 12.5 - 166.0 Ovulation phase 85.8 - 498.0 Luteal phase 43.8 - 211.0 Postmenopausal <6.0 - 54.7 1st trimester 215.0 - >4300.0Roche ECLIA methodology Serum or plasma insulin kevin urement (units/volume)Ordered By: Deisy Villar on 01-07-2024 Insulin Qn 4.5 u[iU]/mL 2.6-24.9 [facility] Comment on above: Performed at: [place] - L redIT [address] [id number] Director: Baudilio Leyva PhD, Phone: [phone] Serum or plasma progesterone measurement (mass/volume)Ordered By: Deisy Villar on 01-07-2024 Progesterone [Mass/Vol] 0.2 ng/mL . [facility] Comment on above: Follicular phase 0.1 - 0.9 Luteal phase 1.8 - 23.9 Ovulation phase 0.1 - 12.0 First trimester 11.0 - 44.3 Second trimester 25.4 - 83.3 Third trimester 58.7 - 214.0 Postmenopausal 0.0 - 0.1 Serum or plasma thyroglobuli n antibody assay (units/volume)Ordered By: Deisy Villar on 01-07-2024 Thyroglobulin Ab Qn [IU]/mL 0.0-0.9 [facility] Comment on above: Thyroglobulin Antibo dy measured by [facility] MedicalMethodologyPerformed at: [facility] [id number] Director: Baudilio Leyva PhD, Phone: [phone] Serum or plasma thyroperoxid ase antibody assay (units/volume)Ordered By: Deisy Villar on 01-07-2024 TPO Ab Qn [IU]/mL 0-34 [facility] Comment on above: Performed at: [facility] [employer] [facility] [place] [facility] [address] [id number] Director: Baudilio Leyva PhD, Phone: [phone] Sex Hormone Binding Globulin on 01-07-2024 Sex Hormone Binding Globulin 95.4 Normal 24.6-122.0 [facility] Comment on above: Result Comment: Perf ormed at: [facility] [address] [id number] Millinery Worker: Baudilio Leyva PhD, Phone: [phone] Performed By: #### D VENITA, LC T4, [id number], SEROTON, TEST F + T, T3R, THYGLOB AB, ESTRADIOL, TPO, SHBG, ESTRONE, INSULIN, PROG #### [facility] , #### T4F, TRISTEN, TSH3, A1C WTH eA, FILIBERTO, GLU, T3F #### [facility] [address] Testosterone Free and TotalO rdered By: Deisy Villar on 01-07-2024 Testosterone [Mass/Vol] 16 ng/dL Normal 8-60 [facility] Comment on above: Performed By: #### D HEAS, LC T4, [id number], SEROTON, TEST F + T, T3R, THYGLOB AB, ESTRADIOL, TPO, SHBG, ESTRONE, INSULIN, PROG #### [facility] , #### T4F, TRISTEN, TSH3, A1C WTH eA, FILIBERTO, GLU, T3F #### [address] Testosterone Free and Totalo n 01-07-2024 Testosterone,Free 0.3 pg/mL Normal 0.0-4.2 The [facility] Comment on above: Result Comment: Perf ormed at: [address] [id number] Millinery Worker: Baudilio Leyva PhD, Phone: [phone] Performed at: [address] [id number] Millinery Worker: Quinton Wolf MD, Phone: [phone] Performed By: #### Adria NATHAN, LC T4, [id number], SEROTON, TEST F + T, T3R, THYGLOB AB, ESTRADIOL, TPO, SHBG, ESTRONE, INSULIN, PROG #### [facility] , #### T4F, TRISTEN, TSH3, A1C WTH eA, FILIBERTO, GLU, T3F #### [address] Thyroid Peroxidase Antibodie son 01-07-2024 Thyroid Peroxidase Antibodies <9 Normal 0-34 [facility] Comment on above: Result Comment: Perf ormed at: [address] [id number] Millinery Worker: Baudilio Leyva PhD, Phone: [phone] Performed By: #### D HEAS, LC T4, [id number], SEROTON, TEST F + T, T3R, THYGLOB AB, ESTRADIOL, TPO, SHBG, ESTRONE, INSULIN, PROG #### [facility] , #### T4F, TRISTEN, TSH3, A1C WTH eA, FILIBERTO, GLU, T3F #### [address] Thyrotropin [Units/volume] i n Serum or PlasmaOrdered By: Deisy Gonzalezey on 01-07-2024 TSH Qn 1.80 m[IU]/L Normal 0.45-5.33 [facility] Comment on above: Performed By: #### D VENITA, LC T4, [id number], SEROTON, TEST F + T, T3R, THYGLOB AB, ESTRADIOL, TPO, SHBG, ESTRONE, INSULIN, PROG #### [facility] , #### T4F, TRISTEN, TSH3, A1C WTH eA, FILIBERTO, GLU, T3F #### [facility] [address] Thyroxine (T4) free [Mass/vo lume] in Serum or PlasmaOrdered By: Deisy Villar on 01-07-2024 Free T4 [Mass/Vol] 0.88 ng/dL Normal 0.61-1.12 [facility] Comment on above: Performed By: #### D VENITA, LC T4, [id number], SEROTON, TEST F + T, T3R, THYGLOB AB, ESTRADIOL, TPO, SHBG, ESTRONE, INSULIN, PROG #### [facility] , #### T4F, TRISTEN, TSH3, A1C WTH eA, FILIBERTO, GLU, T3F #### [facility] [address] [place] [address] [place] Triiodothyronine (T3) Freeon 01-07-2024 Triiodothyronine (T3) Free 3.90 pg/mL Normal 2.50-3.90 [facility] Comment on above: Result Comment: PERF ORMED BY: [place] [address] PATHOLOGIST ASSISTANT FACILITY MANAGER JOSE GOEL M.D. Performed By: #### D VENITA, LC T4, [id number], SEROTON, TEST F + T, T3R, THYGLOB AB, ESTRADIOL, TPO, SHBG, ESTRONE, INSULIN, PROG #### [facility] , #### T4F, TRISTEN, TSH3, A1C WTH eA, FILIEBRTO, GLU, T3F #### [facility] [address] Triiodothyronine (T3) Free [ Mass/volume] in Serum or PlasmaOrdered By: Deisy Villar on 01-07-2024 Free T3 [Mass/Vol] 3.90 pg/mL 2.50-3.90 [facility] Triiodothyronine (T3) Revers lonnie 01-07-2024 Triiodothyronine (T3) Reverse 18.9 ng/dL Normal 9.2-24.1 The [facility] Comment on above: Result Comment: This test was developed and its performance characteristics determined by [facility]. It has not been cleared or approved by the Food and Drug Administration. Performed at: [facility] [id number] Millinery Worker: Quinton Wolf MD, Phone: [phone] Performed By: #### D HEAS, LC T4, [id number], SEROTON, TEST F + T, T3R, THYGLOB AB, ESTRADIOL, TPO, SHBG, ESTRONE, INSULIN, PROG #### [facility] , #### T4F, TRISTEN, TSH3, A1C WT eA, FILIBERTO, GLU, T3F #### [facility] [address] Alanine aminotransferase [En zymatic activity/volume] in Serum or PlasmaOrdered By: Delano Francis on 09-17-2023 ALT [Catalytic activity/Vol] 20 U/L 7-52 [facility] Albumin [Mass/volume] in Ser um or Plasma by Bromocresol green (BCG) dye binding methoOrdered By: Delano Francis on 09-17-2023 Albumin BCG dye [Mass/Vol] 4.3 g/dL 3.5-5.7 [facility] Alkaline phosphatase [Enzyma tic activity/volume] in Serum or PlasmaOrdered By: Delano Francis on 09-17-2023 ALP [Catalytic activity/Vol] 62 U/L 34-104 [facility] Aspartate aminotransferase [ Enzymatic activity/volume] in Serum or PlasmaOrdered By: Delano Francis on 09-17-2023 AST [Catalytic activity/Vol] 22 U/L 13-39 [facility] Basophils Auto (Bld) [#/Vol] Ordered By: Delano Francis on 09-17-2023 Basophils (Bld) [#/Vol] 0.0 10*3/uL 0.0-0.2 [facility] Basophils/100 WBC Auto (Bld) Ordered By: Delano Francis on 09-17-2023 Basophils/100 WBC (Bld) 0.4 % . F [facility] Bilirubin.total [Mass/volume ] in Serum or PlasmaOrdered By: Delano Francis on 09-17-2023 Bilirubin [Mass/Vol] 0.7 mg/dL 0.3-1.0 [facility] Calcium [Mass/volume] in Ser um or PlasmaOrdered By: Delano Francis on 09-17-2023 Calcium [Mass/Vol] 9.4 mg/dL 8.6-10.3 [facility] Carbon dioxide, total [Moles /volume] in Serum or PlasmaOrdered By: Delano Francis on 09-17-2023 CO2 [Moles/Vol] 26.2 mmol/L 21.0-31.0 [facility] Chloride [Moles/volume] in S stevo or PlasmaOrdered By: Delano Francis on 09-17-2023 Chloride [Moles/Vol] 102 mmol/L 98-107 [facility] Cholesterol [Mass/volume] in Serum or PlasmaOrdered By: Delano Francis on 09-17-2023 Cholesterol [Mass/Vol] 214 mg/dL 140-200 [facility] Comment on above: Chol less than 200 m g/dl low riskChol 201-239 mg/dl borderline riskChol 240 mg/dl and greater high risk Cholesterol in LDL Calc [Mas s/Vol]Ordered By: Delano Francis on 09-17-2023 Cholesterol in LDL [Mass/Vol] 161 mg/dL 0-100 [facility] Comment on above: LDL ATP III CLASSIFI CATIONLDL less than 100 mg/dL OptimalLDL 100-129 mg/dL Near or above optimalLDL 130-159 mg/dL Borderline highLDL 160-189 mg/dL HighLDL greater than 189 mg/dL Very high Cholesterol in VLDL Calc [Ma ss/Vol]Ordered By: Delano Francis on 09-17-2023 Cholesterol in VLDL [Mass/Vol] 9 mg/dL [facility] Creatinine [Mass/volume] in Serum or PlasmaOrdered By: Delano Francis on 09-17-2023 Creatinine [Mass/Vol] 0.79 mg/dL 0.60-1.20 [facility] Eosinophils Auto (Bld) [#/Vo l]Ordered By: Delano Francis on 09-17-2023 Eosinophils (Bld) [#/Vol] 0.1 10*3/uL 0.0-0.45 [facility] Eosinophils/100 WBC Auto (Bl d)Ordered By: Delano Francis on 09-17-2023 Eosinophils/100 WBC (Bld) 0.9 % . [facility] Erythrocyte distribution wid th Auto (RBC) [Ratio]Ordered By: Delano Francis on 09-17-2023 Erythrocyte distribution width (RBC) [Ratio] 12.4 % 11.9-15.3 [facility] Globulin Calc (S) [Mass/Vol] Ordered By: Delano Francis on 09-17-2023 Globulin (S) [Mass/Vol] 2.5 g/dL [facility] Glucose [Mass/volume] in Ser um or PlasmaOrdered By: Delano Francis on 09-17-2023 Glucose [Mass/Vol] 75 mg/dL 70-100 [facility] Hematocrit Auto (Bld) [Volum e fraction]Ordered By: Delano Francis on 09-17-2023 Hematocrit (Bld) [Volume fraction] 34.2 % 34.0-46.4 [facility] Hemoglobin [Mass/volume] in BloodOrdered By: Delano Francis on 09-17-2023 Hemoglobin (Bld) [Mass/Vol] 11.8 g/dL 11.8-15.4 [facility] Leukocytes [#/volume] correc calvin for nucleated erythrocytes in Blood by Automated counOrdered By: Delano Francis on 09-17-2023 WBC corrected for nucl RBC Auto (Bld) [#/Vol] 5.9 10*3/uL 3.8-11.6 [facility] Lymphocytes Auto (Bld) [#/Vo l]Ordered By: Delano Francis on 09-17-2023 Lymphocytes (Bld) [#/Vol] 1.8 10*3/uL 1.00-4.8 [facility] Lymphocytes/100 WBC Auto (Bl d)Ordered By: Delano Francis on 09-17-2023 Lymphocytes/100 WBC (Bld) 30.5 % . [facility] MCH Auto (RBC) [Entitic mass ]Ordered By: Delano Francis on 09-17-2023 MCH (RBC) [Entitic mass] 31.8 pg 24.7-34.3 [facility] MCHC Auto (RBC) [Mass/Vol]Or dered By: Delano Francis on 09-17-2023 MCHC (RBC) [Mass/Vol] 34.4 g/dL 32.0-35.0 [facility] MCV Auto (RBC) [Entitic vol] Ordered By: Delano Francis on 09-17-2023 MCV (RBC) [Entitic vol] 92.5 fL 80-100 [facility] Monocytes Auto (Bld) [#/Vol] Ordered By: Delano Francis on 09-17-2023 Monocytes (Bld) [#/Vol] 0.5 10*3/uL 0.0-0.8 [facility] Monocytes/100 WBC Auto (Bld) Ordered By: Delano Francis on 09-17-2023 Monocytes/100 WBC (Bld) 9.2 % . [facility] Neutrophils Auto (Bld) [#/Vo l]Ordered By: Delano Francis on 09-17-2023 Neutrophils (Bld) [#/Vol] 3.5 10*3/uL 1.8-7.7 [facility] Neutrophils/100 WBC Auto (Bl d)Ordered By: Delano Farncis on 09-17-2023 Neutrophils/100 WBC (Bld) 59.0 % . [facility] No Panel InformationOrdered By: Delano Francis on 09-17-2023 Estimated GFR (CKD-EPI) > 60.0 mL/Min [facility] Creatinine Clearance (Chem N/A [facility] Nucleated erythrocytes [Pres ence] in Blood by Automated countOrdered By: Delano Francis on 09-17-2023 Nucleated RBC Auto Ql (Bld) 0.2 /100{WBC} 0-0.5 [facility] Platelet mean volume Auto (B ld) [Entitic vol]Ordered By: Delano Francis on 09-17-2023 Platelet mean volume (Bld) [Entitic vol] 8.1 fL 6.3-10.7 [facility] Platelets Auto (Bld) [#/Vol] Ordered By: Delnao Francis on 09-17-2023 Platelets (Bld) [#/Vol] 250 10*3/uL 150-450 [facility] Potassium [Moles/volume] in Serum or PlasmaOrdered By: Delano Francis on 09-17-2023 Potassium [Moles/Vol] 4.0 mmol/L 3.5-5.1 [facility] Protein [Mass/volume] in Ser um or PlasmaOrdered By: Delano Francis on 09-17-2023 Protein [Mass/Vol] 6.8 g/dL 6.4-8.9 [facility] RBC Auto (Bld) [#/Vol]Ordere d By: Delano Francis on 09-17-2023 RBC (Bld) [#/Vol] 3.70 10*6/uL 3.60-5.00 [facility] Serum or plasma albumin/glob ulin mass ratioOrdered By: Delano Francis on 09-17-2023 Albumin/Globulin [Mass ratio] 1.7 {ratio} [facility] Serum or plasma anion gap de terminationOrdered By: Delano Francis on 09-17-2023 Anion gap [Moles/Vol] 10.8 mmol/L 6.0-15.0 [facility] Serum or plasma high density lipoprotein (HDL) cholesterol measurementOrdered By: Delano Francis on 09-17-2023 Cholesterol in HDL [Mass/Vol] 43 mg/dL 23-92 [facility] Comment on above: HDL CHOL ATP-III CLA SSIFICATION Cardiovascular RiskHDL > or equal to 60 mg/dL LOWHDL < 40 mg/dL HIGH Serum or plasma total choles terol/high density lipoprotein (HDL) cholesterol mass ratOrdered By: Delano Francis on 09-17-2023 Cholesterol.total/Alivia sterol in HDL [Mass ratio] 5.0 {ratio} <5.0 [facility] Sodium [Moles/volume] in Ser um or PlasmaOrdered By: Delano Francis on 09-17-2023 Sodium [Moles/Vol] 135 mmol/L 136-145 [facility] Thyrotropin [Units/volume] i n Serum or PlasmaOrdered By: Delano Francis on 09-17-2023 TSH Qn 1.04 m[IU]/L 0.45-5.33 [facility] Triglyceride [Mass/volume] i n Serum or PlasmaOrdered By: Delano Francis on 09-17-2023 Triglyceride [Mass/Vol] 48 mg/dL 0-149 [facility] Comment on above: TRIG ATP III CLASSIF ICATIONTRIG less than 150 mg/dL NormalTRIG 150-199 mg/dL Borderline highTRIG 200-500 mg/dL High TRIG greater than 500 mg/dL Very highStandard traceable to the Center for Disease Conrtrol and Prevention (CDC) test method. Urea nitrogen [Mass/volume] in Serum or PlasmaOrdered By: Delano Francis on 09-17-2023 Urea nitrogen [Mass/Vol] 7 mg/dL 7-25 [facility] WBC Auto (Bld) [#/Vol]Ordere d By: Delano Francis on 09-17-2023 WBC (Bld) [#/Vol] 5.9 10*3/uL 3.8-11.6 [facility] Mononucleosis Test, [place] 1 Heterophile Ab LA Ql (S) Negative [employer] Other Quick Strepon 09-26-2022 S. pyogenes Org specific cx Ql (Throat) Negative [employer] Other Quick Strep [employer] Other SARS-CoV-2 (COVID-19) RNA NA A+probe Ql (Resp)on 09-26-2022 SARS-CoV-2 (COVID-19) RNA ROB+probe Ql (Unsp spec) Negative [employer] Other PAP ACOG PANEL 2: 30 to 65on 09-01-2022 . . Normal [facility] Comment on above: Result Comment: Perf ormed at: WB Performed By: #### [id number] #### [facility] [address] [place] [address] Dr. Zonia Zhang Age Gdln ACOG Testing 30-65 Normal [facility] Comment on above: Performed By: #### [id number] #### [facility] [address] [address] [address] Zonia Zhang DIAGNOSIS: Comment Normal [facility] Comment on above: Result Comment: NEGA TIVE FOR INTRAEPITHELIAL LESION OR MALIGNANCY. Performed at: WB Performed By: #### [id number] #### [facility] [address] [place] [address] Dr. Zonia Zhang HPV Aptima Negative Normal Negative [facility] Comment on above: Result Comment: This nucleic acid amplification test detects fourteen high-risk HPV types (16,18,31,33,35,39,45,51,52,56,58,59,66,68) without differentiation. Performed at: =G Performed By: #### [id number] #### [facility] [address] [place] [address] Dr. Zonia Zhang Methodology: Comment Normal [facility] Comment on above: Result Comment: This liquid based ThinPrep(R) pap test was screened with the use of an image guided system. Performed at: WB Performed By: #### [id number] #### [facility] [address] [place] [address] Dr. Zonia Zhang Note: Comment Normal [facility] Comment on above: Result Comment: The Pap smear is a screening test designed to aid in the detection of premalignant and malignant conditions of the uterine cervix. It is not a diagnostic procedure and should not be used as the sole means of detecting cervical cancer. Both false-positive and false-negative reports do occur. . Performed at: WB Performed By: #### [id number] #### [facility] [address] [place] [address] Dr. Zonia Zhang Performed by: Comment Normal [facility] Comment on above: Result Comment: Negin Tomas, Radiology Administrator (ASCP) Performed at: WB Performed By: #### [id number] #### [facility] [address] [address] [address] Zonia Zhang Specimen adequacy: Comment Normal [facility] Comment on above: Result Comment: Sati sfactory for evaluation. Endocervical and/or squamous metaplastic cells (endocervical component) are present. Performed at: WB Performed By: #### [id number] #### [facility] [address] [address] [address] Zonia Zhang Basophils Auto (Bld) [#/Vol] Ordered By: Delano Francis on 08-07-2022 Basophils (Bld) [#/Vol] 0.0 10*3/uL 0.0-0.2 [facility] Basophils/100 WBC Auto (Bld) Ordered By: Delano Francis on 08-07-2022 Basophils/100 WBC (Bld) 0.5 % . [facility] Blood hemoglobin measurement (mass/volume)Ordered By: Delano Francis on 08-07-2022 Hemoglobin (Bld) [Mass/Vol] 12.7 g/dL 11.8-15.4 [facility] Blood leukocytes automated c ount (number/volume)Ordered By: Delano Francis on 08-07-2022 WBC (Bld) [#/Vol] 5.0 10*3/uL 4.5-11.0 [facility] Body fluid albumin measureme nt (mass/volume)Ordered By: Delano Francis on 08-07-2022 Albumin (Body fld) [Mass/Vol] 4.1 g/dL 3.2-5.5 [facility] Cholesterol [Mass/volume] in Serum or PlasmaOrdered By: Delano Francis on 08-07-2022 Cholesterol [Mass/Vol] 253 mg/dL 140-200 [facility] Comment on above: Chol less than 200 m g/dl low risk Chol 201-239 mg/dl borderline risk Chol 240 mg/dl and greater high risk Chol less than 200 m g/dl low riskChol 201-239 mg/dl borderline riskChol 240 mg/dl and greater high risk Cholesterol in LDL Calc [Mas s/Vol]Ordered By: Delano Francis on 08-07-2022 Cholesterol in LDL [Mass/Vol] 181 mg/dL 0-100 [facility] Comment on above: LDL ATP III CLASSIFI [...] 08-07-2022 Cholesterol in VLDL [Mass/Vol] 12 mg/dL [facility] Creatinine and Glomerular fi ltration rate.predicted panel (S/P/Bld)Ordered By: Delano Francis on 08-07-2022 Creatinine [Mass/Vol] 0.76 mg/dL 0.44-1.03 [facility] Eosinophils Auto (Bld) [#/Vo l]Ordered By: Delano Francis on 08-07-2022 Eosinophils (Bld) [#/Vol] 0.1 10*3/uL 0.0-0.45 [facility] Eosinophils/100 WBC Auto (Bl d)Ordered By: Delano Francis on 08-07-2022 Eosinophils/100 WBC (Bld) 1.6 % . [facility] Erythrocyte distribution wid th Auto (RBC) [Ratio]Ordered By: Delano Francis on 08-07-2022 Erythrocyte distribution width (RBC) [Ratio] 12.6 % 11.9-15.3 [facility] Estimated glomerular filtrat ion rate (GFR) non- AmericanOrdered By: Delano Francis on 08-07-2022 GFR/1.73 sq M.predicted among non-blacks MDRD (S/P/Bld) [Vol rate/Area] > 60 mL/Min [facility] Globulin Calc (S) [Mass/Vol] Ordered By: Delano Francis on 08-07-2022 Globulin (S) [Mass/Vol] 2.3 g/dL [facility] Hematocrit Auto (Bld) [Volum e fraction]Ordered By: Delano Francis on 08-07-2022 Hematocrit (Bld) [Volume fraction] 37.5 % 34.0-46.4 [facility] Laboratory - Chemistry and C hemistry - challengeOrdered By: Delano Francis on 08-07-2022 Glucose [Mass/Vol] 88 mg/dL 70-100 [facility] - Hematology and Cell countsOrdered By: Delano Francis on 08-07-2022 Nucleated RBC/100 WBC (Bld) [Ratio] 0.1 % 0-0.5 [facility] Lymphocytes Auto (Bld) [#/Vo l]Ordered By: Delano Francis on 08-07-2022 Lymphocytes (Bld) [#/Vol] 1.4 10*3/uL 1.00-4.8 [facility] Lymphocytes/100 WBC Auto (Bl d)Ordered By: Delano Francis on 08-07-2022 Lymphocytes/100 WBC (Bld) 28.1 % . [facility] MCH Auto (RBC) [Entitic mass ]Ordered By: Delano Francis on 08-07-2022 MCH (RBC) [Entitic mass] 31.8 pg 24.7-34.3 [facility] MCHC Auto (RBC) [Mass/Vol]Or dered By: Delano Francis on 08-07-2022 MCHC (RBC) [Mass/Vol] 33.8 g/dL 32.0-35.0 [facility] MCV Auto (RBC) [Entitic vol] Ordered By: Delano Francis on 08-07-2022 MCV (RBC) [Entitic vol] 94.3 fL 80-100 [facility] Monocyte %Ordered By: Delano Francis on 08-07-2022 Monocyte % 60 mg/dL 35-149 [facility] Comment on above: TRIG ATP [...] 08-07-2022 Monocytes (Bld) [#/Vol] 0.5 10*3/uL 0.0-0.8 [facility] Monocytes/100 WBC Auto (Bld) Ordered By: Delaon Francis on 08-07-2022 Monocytes/100 WBC (Bld) 10.1 % . [facility] Neutrophils Auto (Bld) [#/Vo l]Ordered By: Delano Francis on 08-07-2022 Neutrophils (Bld) [#/Vol] 3.0 10*3/uL 1.8-7.7 [facility] Neutrophils/100 WBC Auto (Bl d)Ordered By: Delano Francis on 08-07-2022 Neutrophils/100 WBC (Bld) 59.7 % . [facility] No Panel InformationOrdered By: Delano Francis on 08-07-2022 Estimated GFR () > 60 mL/Min [facility] Comment on above: GFR estimated refere nce range: According to KDOQI guidelines, <60 ml/min/1.73m2 is sufficient to diagnose a patient with chronic kidney disease. Nicotine Metabolite Negative Cutoff=25 [facility] Comment on above: Performed at: [address] [id number] Director: Quinton Wolf MD, Phone: [phone] Pharmacy Creatinine Clearance (Chem N/A [facility] Platelet mean volume Auto (B ld) [Entitic vol]Ordered By: Delano Francis on 08-07-2022 Platelet mean volume (Bld) [Entitic vol] 7.8 fL 6.3-10.7 [facility] Platelets Auto (Bld) [#/Vol] Ordered By: Delano Francis on 08-07-2022 Platelets (Bld) [#/Vol] 275 10*3/uL 150-450 [facility] Protein [Mass/volume] in Ser um or PlasmaOrdered By: Delano Francis on 08-07-2022 Protein [Mass/Vol] 6.4 g/dL 6.1-7.9 [facility] RBC Auto (Bld) [#/Vol]Ordere d By: Delano Francis on 08-07-2022 RBC (Bld) [#/Vol] 3.97 10*6/uL 3.60-5.00 [facility] Serum or plasma alanine troy otransferase measurement without P-5'-P (enzymatic activiOrdered By: Delano Francis on 08-07-2022 ALT No additional P-5'-P [Catalytic activity/Vol] 13 U/L 10-60 [facility] Serum or plasma albumin/glob ulin mass ratioOrdered By: Delano Francis on 08-07-2022 Albumin/Globulin [Mass ratio] 1.8 {ratio} [facility] Serum or plasma alkaline nova sphatase measurement (enzymatic activity/volume)Ordered By: Delano Francis on 08-07-2022 ALP [Catalytic activity/Vol] 52 U/L 32-92 [facility] Serum or plasma anion gap de terminationOrdered By: Delano Francis on 08-07-2022 Anion gap [Moles/Vol] 11.7 mmol/L 6.0-15.0 [facility] Serum or plasma aspartate am inotransferase measurement (enzymatic activity/volume)Ordered By: Delano Francis on 08-07-2022 AST [Catalytic activity/Vol] 15 U/L 10-42 [facility] Serum or plasma calcium kevin urement (mass/volume)Ordered By: Delano Francis on 08-07-2022 Calcium [Mass/Vol] 9.8 mg/dL 8.2-10.2 [facility] Serum or plasma chloride ra surement (moles/volume)Ordered By: Delano Francis on 08-07-2022 Chloride [Moles/Vol] 101 mmol/L 95-114 [facility] Serum or plasma high density lipoprotein (HDL) cholesterol measurementOrdered By: Delano Francis on 08-07-2022 Cholesterol in HDL [Mass/Vol] 60 mg/dL 35-85 [facility] Comment on above: HDL CHOL ATP-III CLA SSIFICATION Cardiovascular Risk HDL > or equal to 60 mg/dL LOW HDL < 40 mg/dL HIGH HDL CHOL ATP-III CLA SSIFICATION Cardiovascular RiskHDL > or equal to 60 mg/dL LOWHDL < 40 mg/dL HIGH Serum or plasma potassium me asurement (moles/volume)Ordered By: Delano Francis on 08-07-2022 Potassium [Moles/Vol] 4.4 mmol/L 3.5-5.1 [facility] Serum or plasma sodium measu rement (moles/volume)Ordered By: Delano Francis on 08-07-2022 Sodium [Moles/Vol] 136 mmol/L 136-146 [facility] Serum or plasma total biliru bin measurement (mass/volume)Ordered By: Delano Francis on 08-07-2022 Bilirubin [Mass/Vol] 1.0 mg/dL 0.3-1.2 [facility] Serum or plasma total carbon dioxide measurement (moles/volume)Ordered By: Delano Francis on 08-07-2022 CO2 [Moles/Vol] 27.7 mmol/L 22.0-30.0 [facility] Serum or plasma total choles terol/high density lipoprotein (HDL) cholesterol mass ratOrdered By: Delano Francis on 08-07-2022 Cholesterol.total/Alivia sterol in HDL [Mass ratio] 4.2 {ratio} <5.0 [facility] Serum or plasma urea nitroge n measurement (mass/volume)Ordered By: Delano Francis on 08-07-2022 Urea nitrogen [Mass/Vol] 9 mg/dL 9-23 [facility] TSH DL <= 0.005 mIU/L QnOrde red By: Delano Francis on 08-07-2022 TSH Qn 1.43 m[IU]/L 0.45-5.33 [facility] T3, TOTAL (TRIIODOTHYRONINE) on 06-07-2022 T3, TOTAL 88 ng/dL Normal 71-180 [facility] Comment on above: Performed By: #### T 3TOTAL #### [facility] [address] [address] [address] Zonia Zhang FREE T4on 06-06-2022 Free T4 [Mass/Vol] 0.94 ng/dL Normal 0.76-1.46 [facility] Comment on above: Performed By: #### F T4 #### [facility] [address] [address] [address] Zonia Zhang TSHon 06-06-2022 TSH 1.364 uIU/mL Normal 0.358-3.74 0 [facility] Comment on above: Performed By: #### T SH #### [facility] [address] [place] [address] Dr. Zonia Zhang COVID Quick Testingon 2021 Result Positive [employer] Other Quick Fluon 12-27-2021 FLUAV Ab CF (S) [Titer] Negative [employer] Other FLUBV Ab CF (S) [Titer] Negative [employer] Other Vital Signs Date Time Vital Sign Value Performing Clinician Facility 05-30-2025 09:10-0400 Body mass index (BMI) [Ratio] 35.52 kg/m2 [employer] Work Phone: [facility] 05-30-2025 09:10-0400 Body weight 102.88 kg [employer] Work Phone: [facility] 05-30-2025 09:10-0400 Diastolic blood pressure 78 mm[Hg] Ángel Sita [employer] Work Phone: [facility] 05-30-2025 09:10-0400 Systolic blood pressure 120 mm[Hg] Ángel Sita [employer] Work Phone: [facility] 05-01-2025 08:36-0400 Body mass index (BMI) [Ratio] 34.43 kg/m2 Deisy MUNOZ Work Phone: [facility] 05-01-2025 08:36-0400 Body weight 99.7 kg Deisy Caledonia PA Work Phone: [facility] 05-01-2025 08:36-0400 Diastolic blood pressure 74 mm[Hg] Deisy Villar PA Work Phone: [facility] 05-01-2025 08:36-0400 Systolic blood pressure 118 mm[Hg] Deisy Adithya PA Work Phone: [facility] 03-30-2025 10:28-0400 Body mass index (BMI) [Ratio] 32.89 kg/m2 Ángel Sita DO Work Phone: [facility] 03-30-2025 10:28-0400 Body weight 95.25 kg Ángel Sita DO Work Phone: [facility] 03-30-2025 10:28-0400 Diastolic blood pressure 84 mm[Hg] Ángel Sita DO Work Phone: [facility] 03-30-2025 10:28-0400 Systolic blood pressure 120 mm[Hg] Ángel Sita DO Work Phone: [facility] 03-02-2025 09:58-0400 Body mass index (BMI) [Ratio] 31.76 kg/m2 Deisy Villar PA Work Phone: [facility] 03-02-2025 09:58-0400 Body weight 91.99 kg Deisy Villar PA Work Phone: [facility] 03-02-2025 09:58-0400 Diastolic blood pressure 72 mm[Hg] Deisy Villar PA Work Phone: [facility] 03-02-2025 09:58-0400 Systolic blood pressure 120 mm[Hg] Deisy Adithya PA Work Phone: [facility] 02-02-2025 09:25-0500 Body mass index (BMI) [Ratio] 30.54 kg/m2 Ángel Sita DO Work Phone: [facility] 02-02-2025 09:25-0500 Body weight 88.45 kg Ángel Sita DO Work Phone: [facility] 02-02-2025 09:25-0500 Diastolic blood pressure 70 mm[Hg] Ángel Sita DO Work Phone: [facility] 02-02-2025 09:25-0500 Systolic blood pressure 120 mm[Hg] Ángel Sita DO Work Phone: [facility] 10-18-2024 11:19-0500 Body height 170.18 cm Robles Ball DO Work Phone: [facility] 10-18-2024 11:19-0500 Body mass index (BMI) [Ratio] 29.7 kg/m2 Robles Ball DO Work Phone: [facility] 10-18-2024 11:19-050 Body weight 86.23 kg Robles Ball DO Work Phone: [facility] 10-18-2024 11:19-0500 Diastolic blood pressure 77 mm[Hg] Robles Ball DO Work Phone: [facility] 10-18-2024 11:19-0500 Heart rate 88 /min Robles Ball DO Work Phone: [facility] 10-18-2024 11:19-0500 Respiratory rate 12 /min Robles Ball DO Work Phone: [facility] 10-18-2024 11:19-0500 Systolic blood pressure 111 mm[Hg] Robles Ball DO Work Phone: [facility] 09-13-2024 14:28-0400 Body mass index (BMI) [Ratio] 28.79 kg/m2 Ángel Sita DO Work Phone: [facility] 09-13-2024 14:28-0400 Body weight 83.37 kg Ángel Sita DO Work Phone: [facility] 09-13-2024 14:28-0400 Diastolic blood pressure 70 mm[Hg] Ángel Sita DO Work Phone: [facility] 09-13-2024 14:28-0400 Systolic blood pressure 120 mm[Hg] Ángel Sita DO Work Phone: [facility] 05-03-2024 14:40-0400 Body height 170.18 cm [facility] 05-03-2024 14:40-0400 Body mass index (BMI) [Ratio] 28.3 kg/m2 [facility] 05-03-2024 14:40-0400 Body weight 82.1 kg [facility] 05-03-2024 14:40-0400 Diastolic blood pressure 82 mm[Hg] [facility] 05-03-2024 14:40-0400 Heart rate 78 /min [facility] 05-03-2024 14:40-0400 SaO2% (BldA) [Mass fraction] 98 % [facility] 05-03-2024 14:40-0400 Systolic blood pressure 122 mm[Hg] [facility] 01-06-2024 14:20-0500 Body height 170.2 cm Deisy Villar PA Work Phone: [facility] 01-06-2024 14:20-0500 Body mass index (BMI) [Ratio] 28.05 kg/m2 Deisy Caledonia PA Work Phone: [facility] 01-06-2024 14:20-0500 Body weight 81.25 kg Deisy Adithya PA Work Phone: [facility] 01-06-2024 14:20-0500 Diastolic blood pressure 70 mm[Hg] Deisy Adithya PA Work Phone: [facility] 01-06-2024 14:20-0500 Systolic blood pressure 120 mm[Hg] Deisy Adithya PA Work Phone: [facility] 10-02-2023 10:00-0400 Body height 170.18 cm Robles Ball Other [employer] [facility] Other 10-02-2023 10:00-0400 Body mass index (BMI) [Ratio] 29.38 kg/m2 Robles Ball Other [employer] [facility] [employer] Other 10-02-2023 10:00-0400 Body weight 85.1 kg Robles Ball Other [employer] Other 10-02-2023 10:00-0400 Diastolic blood pressure 83 mm[Hg] Robles Ball Other [employer] Other 10-02-2023 10:00-0400 Respiratory rate 12 /min Robles Ball Other [employer] Other 10-02-2023 10:00-0400 Systolic blood pressure 131 mm[Hg] Robles Ball Other [employer] Other 01-22-2023 10:30-0500 Body height 170.18 cm Robles Ball Other [employer] Other 01-22-2023 10:30-0500 Body mass index (BMI) [Ratio] 29.91 kg/m2 Robles Ball Other [employer] Other 01-22-2023 10:30-0500 Body weight 86.64 kg Robles Ball Other [employer] Other 01-22-2023 10:30-0500 Diastolic blood pressure 72 mm[Hg] Robles Ball Other [employer] Other 01-22-2023 10:30-0500 Respiratory rate 16 /min Robles Ball Other [employer] Other 01-22-2023 10:30-0500 Systolic blood pressure 122 mm[Hg] Robles Ball Other [employer] Other 09-26-2022 16:10-0400 Body height 170.18 cm Kiya Schaffer Other [employer] Other 09-26-2022 16:10-0400 Body mass index (BMI) [Ratio] 29.29 kg/m2 Kiya Schaffer Other [employer] Other 09-26-2022 16:10-0400 Body temperature 98.8 [degF] Kiya Schaffer Other [employer] Other 09-26-2022 16:10-0400 Body weight 84.82 kg Kiya Schaffer Other [employer] Other 09-26-2022 16:10-0400 Diastolic blood pressure 73 mm[Hg] Kiya Schaffer Other [employer] Other 09-26-2022 16:10-0400 Respiratory rate 18 /min Kiya Schaffer Other [employer] Other 09-26-2022 16:10-0400 SaO2% (BldA) [Mass fraction] 97 % Kiya Schaffer Other [employer] Other 09-26-2022 16:10-0400 Systolic blood pressure 125 mm[Hg] Kiya Schaffer Other [employer] Other 12-27-2021 10:15-0500 Body height 170.18 cm Elsi Mayer Other [employer] Other 12-27-2021 10:15-0500 Body mass index (BMI) [Ratio] 28.19 kg/m2 Elsi Mayer Other [employer] Other 12-27-2021 10:15-0500 Body temperature 100.3 [degF] Elsi Mayer Other [employer] Other 12-27-2021 10:15-0500 Body weight 81.65 kg Elsi Mayer Other [employer] Other 12-27-2021 10:15-0500 Respiratory rate 18 /min Elsi Mayer Other [employer] Other 12-27-2021 10:15-0500 SaO2% (BldA) [Mass fraction] 98 % Elsi Mayer Other [employer] Other Encounters Encounter Date Encounter Type Care Provider Facility Start: 06-03-2025 End: 06-03-2025 Clinisync Result Encounter Ángel Sita DO Work Phone: [facility] External Department Unsolicited Start: 06-03-2025 End: 06-03-2025 Clinisync Result Encounter Ángel Sita DO Work Phone: [facility] External Department Unsolicited Start: 05-30-2025 End: 05-30-2025 Bamboo flowsheet Ángel Sita DO Work Phone: [facility] Start: 05-30-2025 End: 05-30-2025 Bamboo flowsheet Ángel Sita DO Work Phone: [facility] Start: 05-30-2025 End: 05-30-2025 flow sheet Ángel Sita DO Work Phone: [facility] Comment on above: Third trimester preg lai ([facility]); 29 weeks gestation of ([facility]); History of miscarriage; Multigravida of advanced maternal age in third trimester ([facility]) Start: 05-30-2025 End: 05-30-2025 ambulatory ÁNGEL SITA Not Available Start: 05-11-2025 End: 05-11-2025 Clinisync Result Encounter Edson Dewitt [employer] Work Phone: [facility] Unsolicited Start: 05-11-2025 End: 05-11-2025 Clinisync Result Encounter Edson Maderaly [employer] Work Phone: [facility] External Department Unsolicited Start: 05-01-2025 End: 05-01-2025 Bamboo flowsheet Deisy MUNOZ Work Phone: [facility] Start: 05-01-2025 End: 05-01-2025 Bamboo flowsheet Deisy MUNOZ Work Phone: [facility] Start: 05-01-2025 End: 05-01-2025 flow sheet Deisy MUNOZ Work Phone: [facility] Comment on above: size inconsist [...] 03-21-2025 End: 03-21-2025 Clinisync Result Encounter Deisy Adithya PA Work Phone: [facility] External Department Unsolicited Start: 03-21-2025 End: 03-21-2025 Clinisync Result Encounter Deisy Gonzalezashleigh MUNOZ Work Phone: [facility] External Department Unsolicited Start: 03-02-2025 End: 03-02-2025 Bamboo flowsheet Deisy MUNOZ Work Phone: [facility] Start: 03-02-2025 End: 03-09-2025 Bamboo flowsheet Deisy Villar ALEXANDER Work Phone: [facility] Start: 03-02-2025 End: 03-09-2025 Clinisync Result Encounter Deisy Adithya PA Work Phone: [facility] External Department Unsolicited Start: 03-02-2025 End: 03-03-2025 External Result Encounter Deisy MUNOZ Work Phone: [facility] External Department Unsolicited Start: 03-02-2025 End: 03-02-2025 Patient encounter procedure Deisy Villar ALEXANDER Work Phone: [facility] Start: 03-02-2025 End: 03-02-2025 Periodic preventive med est patient 18-39 yrs Deisy MUNOZ Work Phone: [facility] Comment on above: 17 weeks [...] Unsolicited Start: 10-18-2024 End: 10-18-2024 ambulatory Robles Charles DO Work Phone: [facility] Work Phone: Start: 10-18-2024 End: 10-18-2024 Encounter for general adult medical examination without abnormal findings Robles Charles DO Work Phone: [facility] Start: 10-18-2024 End: 10-18-2024 Patient encounter procedure Robles Charles DO Work Phone: [facility] Work Phone: Start: 10-16-2024 Patient encounter status Jermaine min Ball DO Work Phone: [facility] Start: 10-14-2024 Non-patient / Non-visit Melissa in Nela DO Work Phone: [facility] Work Phone: Start: 09-22-2024 End: 09-22-2024 Departed Referred DO Robles Charles Work Phone: [facility] Start: 09-22-2024 End: 09-22-2024 ambulatory DO Robles Charles Work Phone: [facility] Work Phone: Start: 09-13-2024 End: 09-13-2024 [...] Not Available Start: 08-29-2024 End: 08-29-2024 ambulatory [facility] Work Phone: Start: 08-29-2024 End: 08-29-2024 Patient encounter procedure [facility] Work Phone: Start: 05-03-2024 End: 05-03-2024 ambulatory [facility] Work Phone: Start: 05-03-2024 End: 05-03-2024 Patient encounter procedure [facility] Work Phone: Start: 2024 End: 2024 ambulatory DO Robles Charles Work Phone: [facility] Work Phone: Start: 2024 End: 2024 Patient encounter procedure DO Robles Charles Work Phone: [facility] Work Phone: Start: 01-07-2024 End: 01-07-2024 Patient encounter procedure DO Robles Charles Work Phone: [facility] Work Phone: Start: 01-07-2024 End: 01-07-2024 ambulatory DO Robles Charles Work Phone: [facility] Work Phone: Start: 01-06-2024 End: 01-06-2024 Office outpatient visit 15 minutes Deisy MUNOZ Work Phone: [facility] Comment on above: Encounter for weight management; Hormone disorder; 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 Start: 10-02-2023 End: 10-02-2023 ambulatory Robles Charles Other [facility] Other Start: 10-02-2023 Encounter for genera l adult medical examination without abnormal findings Robles Charles [facility] Start: 10-02-2023 Periodic preventive med est patient 18-39 yrs Robles Charles [facility] Start: 09-17-2023 End: 09-17-2023 ambulatory MD Liz Conteh Work Phone: [facility] Work Phone: Start: 09-17-2023 End: 09-17-2023 Departed Referred MD Liz Conteh Work Phone: [facility]-Employee Benefit Screening Start: 01-22-2023 End: 01-22-2023 ambulatory Robles Charles Other [employer] Other Start: 01-22-2023 Office outpatient vi sit 15 minutes Robles Charles [facility] Start: 01-12-2023 End: 01-12-2023 ambulatory Robles Charles Other [employer] Other Start: 01-12-2023 Telephone encounter Robles Charles [facility] Start: 12-24-2022 End: 12-24-2022 ambulatory Robles Charles Other [employer] Other Start: 12-24-2022 Office outpatient vi sit 15 minutes Robles Charles [facility] Start: 09-30-2022 End: 09-30-2022 ambulatory Kiya Schaffer Other [employer] Other Start: 09-30-2022 Telephone encounter Kiya Schaffer [facility] Start: 09-26-2022 End: 09-26-2022 Departed Referred MD Liz Conteh Work Phone: [facility] Start: 09-26-2022 End: 09-26-2022 ambulatory MD Liz Conteh Work Phone: [facility] Work Phone: Start: 09-26-2022 Office outpatient vi sit 15 minutes Kiya Schaffer [facility] Start: 09-25-2022 (FCCC C Vac) [facility] Co vid Vaccine Subha Kirtrodrigo [facility] Start: 09-25-2022 End: 09-25-2022 ambulatory MD Liz Conteh Work Phone: [facility] Work Phone: Start: 09-25-2022 End: 09-25-2022 Patient encounter procedure MD Liz Conteh Work Phone: [facility]Cov[facility] Vaccine Off Site Start: 08-25-2022 End: 08-25-[address] ÁNGEL BUCKNER Facility:[facility] Start: 08-07-2022 End: 08-07-2022 Departed Referred MD Liz Conteh Work Phone: [facility]-Employee Benefit Screening Start: 06-06-2022 End: 06-07-[address] ROBLES CHARLES Facility:[facility] Start: 01-01-2022 End: 01-01-2022 ambulatory Elsi Leyla Other [facility] [place] Other Start: 01-01-2022 Office outpatient vi sit 5 minutes Elsi Leyla [facility] Start: 12-27-2021 End: 12-27-2021 ambulatory Elsi Leyla Other [employer] Other Start: 12-27-2021 Office outpatient vi sit 15 minutes Elsi Leyla [facility] Start: 08-23-2021 ([facility] C Vac) [facility] Co vid Vaccine Subha Dillon [facility] Procedures Date Procedure Procedure Detail Performing Clinician Start: 06-03-2025 OB BPP W NON-STRESS Ángel Sita DO Work Phone: Start: 05-30-2025 Urnls dip stick/tabl et rgnt non-auto w/o micrscp Ángel Sita DO Work Phone: Start: 05-11-2025 US OB GROWTH Edson E berly [employer] Work Phone: Start: 04-18-2025 ALL CBC WITH AUTO DIFF Ángel Sita DO Work Phone: Start: 04-18-2025 GLUCOSE 1 HOUR Ángel Fa zio DO Work Phone: Start: 03-30-2025 Urnls dip stick/tabl et rgnt non-auto w/o micrscp Ángel Sita DO Work Phone: Start: 03-21-2025 US OB ANATOMY Deisy Adithya PA Work Phone: Start: 03-21-2025 US OB CERVICAL LENGTH A rodriguez Adithya MUNOZ Work Phone: Start: 03-02-2025 RECURRENT VAGINITIS [...] 09-13-2029 Screening for malignant neoplasm of cervix [facility] Start: 03-02-2028 Screening for malignant neoplasm of cervix Pap Smear [facility] Start: 09-19-2025 End: 09-19-2025 Patient encounter procedure 09/19/2025 8:30 AM EDT Office Visit [facility] [address] [place] [phone] Ángel Buckner, DO [address] [place] [address] [facility] Start: 07-31-[address] [facility] Start: 06-26-2025 End: 06-26-2025 Patient encounter procedure 06/26/2025 1:10 PM EDT Routine [facility] [address] [place] [phone] Ángel Buckner, DO [address] [place] [address] [facility] Start: 06-19-2025 Screening for malignant neoplasm of cervix [facility] Start: 06-12-2025 End: 06-12-2025 Patient encounter procedure 06/12/2025 2:10 PM EDT Routine [facility] [address] [place] [phone] Ángel Buckner, DO [address] [place] [address] [facility] Start: 05-30-2025 End: 11-30-2025 US biophysical profile w non stress test US biophysical profile w non stress test Imaging Routine History of miscarriage Multigravida of advanced maternal age in third trimester ([facility]) Expected: 05/30/2025 (Approximate), Expires: 11/30/2025 [facility] Work Phone: Comment on above: Expected: 05/30/2025 [...] Procedure [facility] [address] [place] [address] [facility] Start: 04-03-2025 End: 04-03-2025 Patient encounter procedure 04/03/2025 9:50 AM EDT Routine [facility] [address] [place] [phone] Ángel Buckner, DO [address], [place] [id number] [facility] Start: 04-03-2025 End: 04-03-2025 Professional / ancillary services management 04/03/2025 8:00 AM EDT Ancillary Procedure [facility] [address] [place] [address] [facility] Start: 03-30-2025 End: [...] Expected: 03/30/2025 (Approximate), Expires: 03/30/2026 [facility] Comment on above: Expected: 03/30/2025 (Approximate), Expi res: 03/30/2026 Start: 03-30-2025 End: 06-30-2025 US for US OB limited 1+ fetuses Imaging Routine Encounter for follow-up ultrasound of anatomy Expected: 03/30/2025, Expires: 06/30/2025 [facility] Comment on above: Expected: 03/30/2025, Expires: [...] AM EDT Routine [facility] [address] [place] [address] Deisy Villar PA [address] [place] [address] Arrived [facility] Comment on above: Arrived Start: 02-02-2025 End: 02-02-2025 Patient encounter procedure [facility] Comment on above: Arrived Start: 01-05-2025 End: 01-05-2025 ambulatory 01/05/2025 1:30 PM EST Initial [facility] [address] [place] [address] [facility] Start: 01-05-2025 End: 01-05-2025 Professional / ancillary services management 01/05/2025 1:00 PM EST Ancillary Procedure [facility] [address] [place] [address] [facility] Start: 09-13-2024 End: 09-13-2024 Patient encounter procedure [facility] Comment on above: Arrived Start: 07-31-2024 Influenza vaccination Influenza Vaccine (#1) [facility] Start: 02-03-2024 End: 02-03-2024 Patient encounter procedure 02/03/2024 1:50 PM EST Office Visit [facility] [address] [place] [phone] Deisy Villar PA [address] [place], [place] [id number] [facility] Start: 01-07-2024 Dehydroepiandrosterone sulfate level [facility] Start: 01-07-2024 Sex hormone binding globulin measurement [facility] Start: 01-07-2024 T3 reverse measurement [facility] Start: 01-07-2024 Thyroxine measurement [facility] Start: 01-07-2024 [facility] Start: 01-06-2024 End: 01-06-2025 Anti-thyroglobulin antibody Anti-thyroglobulin antibody Lab Routine Hormone disorder Expected: 01/06/2024 (Approximate), Expires: 01/06/2025 [facility] Comment on above: Expected: 01/06/2024 (Approximate), Expi res: 01/06/2025 Start: 01-06-2024 End: 01-06-2025 C-peptide C-peptide Lab Routine Hormone disorder Expected: 01/06/2024 (Approximate), Expires: 01/06/2025 [facility] Comment on above: Expected: 01/06/2024 (Approximate), Expi res: 01/06/2025 Start: 01-06-2024 End: 01-06-2025 Cortisol free Cortisol, free Lab Routine Hormone disorder Expected: 01/06/2024 (Approximate), Expires: 01/06/2025 [facility] Comment on above: Expected: 01/06/2024 (Approximate), Expi res: 01/06/2025 Start: 01-06-2024 End: 01-06-2025 Glucose [Mass/volume] in Serum or Plasma Glucose, random Lab Routine Hormone disorder Expected: 01/06/2024 (Approximate), Expires: 01/06/2025 [facility] Comment on above: Expected: 01/06/2024 (Approximate), Expi res: 01/06/2025 Start: 01-06-2024 End: 01-06-2025 Insulin, total Insulin, total Lab Routine Hormone disorder Expected: 01/06/2024 (Approximate), Expires: 01/06/2025 [facility] Comment on above: Expected: 01/06/2024 (Approximate), Expi res: 01/06/2025 Start: 01-06-2024 End: 01-06-2025 Serotonin serum Serotonin serum Lab Routine Hormone disorder Expected: 01/06/2024 (Approximate), Expires: 01/06/2025 [facility] Comment on above: Expected: 01/06/2024 (Approximate), Expi res: 01/06/2025 Start: 01-06-2024 End: 01-06-2025 Thyroglobulin Thyroglobulin Lab Routine Hormone disorder Expected: 01/06/2024 (Approximate), Expires: 01/06/2025 [facility] Comment on above: Expected: 01/06/2024 (Approximate), Expi res: 01/06/2025 Start: 01-06-2024 End: 01-06-2025 Thyrotropin [Units/volume] in Serum or Plasma [facility] Comment on above: Ordered: 01/06/2024 Expected: 01/06/2024 (Approximate), Expires: 01/06/2025 Start: 09-17-2023 [facility] Start: 08-07-2022 [facility] Work Phone: Calcitriol [Mass/vol ume] in Serum or Plasma [facility] CHLAMYDIA TRACHOMATI S (GENITO/STI) CHLAMYDIA TRACHOMATIS (GENITO/STI) Lab Routine Exposure to STD Ordered: 03/02/2025 [facility] Comment on above: Ordered: 03/02/2025 Cytology Cervical or vaginal smear or scraping study Pap Smear Pathology and Cytology Routine Well woman exam with routine gynecological exam Ordered: 09/13/2024 [facility] Work Phone: Comment on above: Ordered: 09/13/2024 Cytology Cervical or vaginal smear or scraping study Pap Smear Pathology and Cytology Routine Well woman exam with routine gynecological exam Ordered: 03/02/2025 [facility] Comment on above: Ordered: 03/02/2025 DHEA-sulfate DHEA-sulfate Lab Routine Hormone disorder Ordered: 01/06/2024 [facility] Comment on above: Ordered: 01/06/2024 Estradiol Estradiol Lab Ro utine Hormone disorder Ordered: 01/06/2024 [facility] Work Phone: Comment on above: Ordered: 01/06/2024 Estradiol (E2) [Mass /volume] in Serum or Plasma [facility] Estrone Estrone Lab Rout ine Hormone disorder Ordered: 01/06/2024 [facility] Comment on above: Ordered: 01/06/2024 Estrone (E1) [Mass/v olume] in Serum or Plasma [facility] Ferritin [Mass/volum e] in Serum or Plasma Ferritin Lab Routine Hormone disorder Ordered: 01/06/2024 [facility] Comment on above: Ordered: 01/06/2024 Hemoglobin A1c measurement Hemog lobin A1c Lab Routine Hormone disorder Ordered: 01/06/2024 [facility] Comment on above: Ordered: 01/06/2024 Human papilloma viru s DNA [Presence] in Unspecified specimen by Probe with amplification HPV DNA probe, amplified Microbiology Routine Well woman exam with routine gynecological exam Ordered: 09/13/2024 [facility] Comment on above: Ordered: 09/13/2024 Human papilloma viru s DNA [Presence] in Unspecified specimen by Probe with amplification HPV DNA probe, amplified Microbiology Routine Well woman exam with routine gynecological exam Ordered: 03/02/2025 [facility] Comment on above: Ordered: 03/02/2025 Insulin [Units/volum e] in Serum or Plasma [facility] Neisseria gonorrhoea e DNA [Presence] in Unspecified specimen by ROB with probe detection Neisseria gonorrhea DNA probe, direct Lab Routine Exposure to STD Ordered: 03/02/2025 [facility] Comment on above: Ordered: 03/02/2025 Progesterone Progesterone Lab Routine Hormone disorder Ordered: 01/06/2024 [facility] Comment on above: Ordered: 01/06/2024 Progesterone [Mass/v olume] in Serum or Plasma [facility] Serotonin [Mass/volu me] in Plasma [facility] Sex hormone binding globulin Sex hormone binding globulin Lab Routine Hormone disorder Ordered: 01/06/2024 [facility] Comment on above: Ordered: 01/06/2024 SURESWAB(R) ADVANCED VAGINITIS PLUS, TMA SURESWAB(R) ADVANCED VAGINITIS PLUS, TMA Pathology and Cytology Routine Vaginal discharge Ordered: 03/02/2025 [facility] Work Phone: Comment on above: Ordered: 03/02/2025 T3, reverse T3, reverse Lab Routine Hormone disorder Ordered: 01/06/2024 [facility] Comment on above: Ordered: 01/06/2024 Testosterone Free [Mass/volume] in Serum or Plasma [facility] TESTOSTERONE, FREE TESTOSTERONE, FREE Lab Routine Hormone disorder Ordered: 01/06/2024 [facility] Comment on above: Ordered: 01/06/2024 Testosterone, free, total Testos terone, free, total Lab Routine Hormone disorder Ordered: 01/06/2024 [facility] Comment on above: Ordered: 01/06/2024 Throat culture Throat Culture [facility] Thyroglobulin Ab [Units/volume] in Serum or Plasma [facility] Thyroid peroxidase antibody Thyr oid peroxidase antibody Lab Routine Hormone disorder Ordered: 01/06/2024 [facility] Comment on above: Ordered: 01/06/2024 Thyroperoxidase Ab [Units/volume] in Serum or Plasma [facility] Thyroxine (T4) free [Mass/volume] in Serum or Plasma T4, free Lab Routine Hormone disorder Ordered: 01/06/2024 [facility] Comment on above: Ordered: 01/06/2024 Triiodothyronine (T3 ) Free [Mass/volume] in Serum or Plasma T3, free Lab Routine Hormone disorder Ordered: 01/06/2024 [facility] Comment on above: Ordered: 01/06/2024 Vitamin D 1,25 dihydroxy Vitamin D 1,25 dihydroxy Lab Routine Hormone disorder Ordered: 01/06/2024 [facility] Comment on above: Ordered: 01/06/2024 [facility] Work Phone: Immunizations Immunization Date Immunization Notes Care Provider Fa cili 09-15-2023 influenza, injectabl e, quadrivalent, preservative free [facility] 09-15-2023 influenza virus vaccine, unspecified formulation Ángel Buckner DO Work Phone: [facility] 09-25-2022 COVID-19 Moderna (BIvalent) Kiya Schaffer Other [facility] 08-23-2021 COVID-19 Pfizer Subha Fitt Other [facility] 07-31-2021 COVID-19 Pfizer Subha Fitt Other [facility] 05-19-2021 diphtheria, tetanus toxoids and pertussis vaccine [facility] Payers Date Payer Category Payer Self-pay [id number] 2022 Private Health Insurance [employer] [id number] 2022 Unknown [employer] [id number] 2022-Present [address] [place] [address] [id number] 1990 Unknown [id number] 1990 Unknown [id number] .593 1990 Unknown [id number] .9 1990 Unknown [id number] .1258 1990 Unknown [id number] .1258 1990 Unknown [id number] [id number] .1258 1990 Unknown [id number] [id number] .1258 1990 Unknown [id number] [id number] .1258 1990 Unknown [id number] [id number] .1258 1990 Unknown [id number] [id number] .1258 1990 Unknown [id number] [id number] .9 1959 Unknown [id number] [id number] Unknown [id number] [id number] .531 Unknown [id number] .531 Worker's Compensation [facility] [place][Note 2] [id number] Social History Date Type Detail Facility Start: 10-13-2023 End: 09-13-2024 Sex Assigned At [facility] Start: 1990 Sex Assigned At Female F [facility] Start: 08-13-2023 End: 05-03-2024 Tobacco smoking status NHIS Never smoked tobacco [facility] Start: 01-06-2024 End: 05-01-2025 Alcohol intake Current drinker of alcohol (finding) [facility] Start: 10-13-2023 End: 09-13-2024 History of Social [...] [facility] Start: 10-18-2024 Sex Female (finding) [facility] Start: 11-16-2024 [facility] Clinical Notes 08-23-2021 to 05-30-2025 Renu Charlton, [employer] - 05/30/2025 8:50 AM EDTEdson Dewitt NP - 05/01/2025 8:30 AM Joselito Kearney, [employer] - 03/30/2025 10:10 AM ALEXANDER Abbott - [...] nursing note reviewed. Exam conducted with a [employer] stitcher present. Vitals: Estimated body mass index is 35.52 kg/m as calculated from the following: Height as of 01/06/24: 5' 7 . Weight as of this encounter: 226 lb 12.8 oz. BP: 120/78 Patient's last menstrual period was 11/02/2024. ASSESSMENT & PLAN ICD-10-CM 1. Third trimester ([facility]) Z34.93 POCT urinalysis dipstick manually resulted 2. 29 weeks gestation of ([facility]) Z3A.29 POCT urinalysis dipstick manually resulted 3. History of miscarriage Z87.59 4. Multigravida of advanced maternal age in third trimester ([facility]) O09.523 Return OB: Patient presents today for [...] Ángel Buckner DO documented in this encounter [facility] 05-01-2025 History of Presen t illness Narrative [...] nursing note reviewed. Exam conducted with a [employer] stitcher present. Vitals: Estimated body mass index is [...] Edson Dewitt NP documented in this encounter [facility] 03-30-2025 History of Presen t illness Narrative [...] nursing note reviewed. Exam conducted with a [employer] stitcher present. Vitals: Estimated body mass index is [...] Ángel Buckner DO documented in this encounter [facility] 03-02-2025 History of Presen t illness Narrative [...] nursing note reviewed. Exam conducted with a [employer] stitcher present. Vitals: Estimated body mass index is [...] obtained without difficulty and patient was given [facility] order to have obtained. Orders Placed This [...] of: ALEXANDER Gramajo documented in this encounter [facility] 02-02-2025 History of Presen t illness Narrative [...] Ángel Buckner DO documented in this encounter [facility] 09-13-2024 History of Presen t illness Narrative [...] nursing note reviewed. Exam conducted with a [employer] stitcher present. Vitals: Estimated body mass index is [...] Ángel Buckner DO documented in this encounter [facility] 01-06-2024 History of Presen t illness Narrative [...] anxiety disorder) (CMS/HCC) Hyperlipidemia (CMS/HCC) Paronychia, finger Family History Problem [...] of: ALEXANDER Gramajo documented in this encounter [facility] 10-02-2023 Evaluation note Encounter Date Diagnosis Assessment [...] drinking prior to bedtime. Weight loss. Pepcid ABRAHAMN [employer] Other 2023 Evaluation note* Encounter Date Diagnosis Assessment Notes Treatment Notes Treatment Clinical Notes Dec, Nasal turbinate hypertrophy (ICD-10 - J34.3) FLonase, saline NS, Sudafed and avoid use of Afin. Refer to ENT. Dec, Nonallergic vasomotor rhinitis (ICD-10 - J30.0) Prednisone tapered over 8 days. Claritin as needed. [employer] Other 02-13-2023 Evaluation note* Encounter Date Diagnosis Assessment Notes Treatment Notes Treatment Clinical Notes Dec, Acute non-recurrent maxillary sinusitis (ICD-10 - J01.00) [employer] Other 01-25-2023 Evaluation note* Encounter Date Diagnosis Assessment Notes Treatment Notes Treatment Clinical Notes Nov, Acute non-recurrent maxillary sinusitis (ICD-10 - J01.00) Instructed to use Robitussin or Mucinex for cough, saline or Flonase NS for congestion, Tylenol for pain and fever. [employer] Other 10-28-2022 Evaluation note* Encounter Date Diagnosis [...] (suspected) exposure to covid-19 (ICD-10 - Z20.822) [employer] Other 10-27-2022 Evaluation note* Encounter Date Diagnosis Assessment Notes Treatment Notes Treatment Clinical Notes Aug, Encounter for immunization (ICD-10 - Z23) Patient presents today for COVID-19 vaccination booster. Patient pre-vaccination form answers reviewed. Patient denies current illness or allergic reaction to any component of a COVD-19 vaccine. Patient provided with copy of current EUA. [employer] Other 02-02-2022 Evaluation note* Encounter Date Diagnosis [...] Patient care instructions given in writting by [facility] document. Additional time spent conducting pre-visit phone call, screening for symptoms, instructions on social distancing, application and removal of PPE, and cleaning of examination room, equipment and supplies was preformed. Patient education given for testing methodology and results. Patient care instructions given in writting by [facility] document. [employer] Other 01-28-2022 Evaluation note* Encounter Date Diagnosis [...] care instructions given in writting by [facility] document. [employer] Other 09-24-2021 Evaluation note* Encounter Date Diagnosis Assessment Notes Treatment Notes Treatment Clinical Notes Jul, Encounter for immunization (ICD-10 - Z23) Patient presents for COVID-19 vaccination #2. Pre-screening form answers evaluated with patient. Patient denies current illness or allergic reaction to component of COVID-19 vaccine. Patient provided with current copy of EUA. [employer] Other Evlzhxtleu noteNo assessment information available [facility] Work Phone: evaluation noteNo [email or web address] Other evaluation note* Diagnosis Encounter for weight management Hormone disorder Unspecified endocrine disorder 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 documented [facility] encounter [facility]* Diagnosis Well woman exam with routine gynecological exam Routine gynecological examination documented in this encounter [facility]* Diagnosis Onset Date Resolution Status Admit Date Hypercholesteremia acute Novemb er 2023 11:13am Wellness examination acute Nove mber 2023 11:13am [facility] Work Phone: Evaluation note* Diagnosis 13 [...] Heartburn Allergy, sequela documented in this encounter [facility] HealthcareEvaluation note* Diagnosis Second trimester state, incidental 21 weeks gestation of Diabetes mellitus screening Screening for diabetes mellitus Uterovaginal prolapse, incomplete Encounter for follow-up ultrasound of anatomy documented in this encounter [facility] HealthcareEvaluation note* Diagnosis size inconsistent with dates- Primary Second trimester state, incidental 25 weeks gestation of documented in this encounter [facility] HealthcareEvaluation note* Diagnosis Third trimester ([facility]-HCC) state, incidental 29 weeks gestation of ([facility]) History of miscarriage Personal history of other genital system and obstetric disorders Multigravida of advanced maternal age in third trimester ([facility]HCC) documented in this encounter [facility] HealthcareHistory general Narrative - Reported* Type Description Date Medical History Child X2 Natural Surgical History No know Surgical history Hospitalization History see above [employer] Other History general Narrative - Reported* Type Description Date Medical History Child X2 Natural Surgical History No Surgical history information Hospitalization History see above [employer] Other History general Narrative - Reported* Type Description Date Medical History Child X2 Natural Medical History Body mass index (BMI) of 25.0 to 29.9 Medical History Fatigue Medical History Hyperlipidemia, group A Medical History GARTH (generalized anxiety disorde r) Surgical History No know Surgical history Hospitalization History No know Hospitalization history [employer] Other Chief Complaint and Reason for Visit [...] Nasal turbinate hype rtrophy (J34.3) Referral Organization [facility] Nela russo Referring Provider First Name Robles Referring Provider Last Name Nela Referring Provider Specialty Internal Me patine Referred Organization [facility] Referred Provider Robles Hernandez Referred Address ,[place], [place],[address] Referred Provider Specialty Otolaryngolo gy Referral Priority Routine Referral Appointment Date 2023-02-04 General Notes Rosangela Cruz 09:25:33 AM >received today, notes locked, insurance card attached, referral faxed Rosangela Cruz 01/29/2023 12:42:25 PM >Shannan at Dr. Rodriges office requested referral be faxed again to [phone]. done! 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 Relationship Specialty Start Date End Date Robles Charles MD [address] [place] [address] PCP - General Internal Medicine 07/30/23 Team Status: Inactive Member Role Status Dates Robles Charles DO Primary Care Provide r, Attending Provider Active Start: 2024 End: 2024 Team Status: Inactive Member Role Status Dates Robles Charles DO Primary Care Provider Active Start: May 03, 2024 End: May 03, 2024 Caro Chacon APRN [employer] Attending Provider Act alex Start: May 03, 2024 End: May 03, 2024 Team Status: Inactive Member Role Status Dates Robles Charles DO Primary Care Provide r, Attending Provider Active Start: August 29, 2024 End: August 29, 2024 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 Relationship Specialty Start Date End Date Robles Charles MD [facility] [place] [phone] PCP - General Internal Medicine 07/30/23 Deisy Villar PA [address] [place] [address] [place] [id number] PCP - Medical [employer] 11/30/23 11/29/99 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 Relationship Specialty Start Date End Date Robles Charles MD [address] [place] [phone] PCP - General Internal Medicine 07/30/23 Deisy Villar PA [address] [place] [address] PCP - Medical [employer] 11/30/23 11/29/99 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 [place] [phone] PCP - General Internal Medicine 07/30/23 Deisy Villar PA [address] [place] [address] [place] [address] PCP - Medical [employer] 11/30/23 11/29/99 Team Status: Inactive Member Role Status Dates Robles Charles DO Primary Care Provider Active Start: September 22, 2024 End: September 22, 2024 Delano Francis - [facility] , DO [facility] Attending Provider Active Start: September 22, 2024 End: September 22, 2024 Team Status: Active Member Role Status Dates Robles Charles DO Primary Care Provide r, Attending Provider Active Start: October 14, 2024 Team Status: Inactive Member Role Status Dates Robles Charles DO Primary Care Provide r, Attending Provider Active Start: October 18, 2024 End: October 18, 2024 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 Relationship Specialty Start Date End Date Robles Charles MD [address] [place] [address] PCP - General Internal Medicine 07/30/23 Deisy Villar PA [address] [place] [address] [place] [address] PCP - Medical [employer] 11/30/23 11/29/99 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 Relationship Specialty Start Date End Date Robles Charles MD [address] [place] [phone] PCP - General Internal Medicine 07/30/23 Deisy Villar PA [address] [place] [address] [place] [address] PCP - Medical [employer] 11/30/23 11/29/99 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 Relationship Specialty Start Date End Date Robles Charles MD [address] [facility] [place] [address] PCP - General Internal Medicine 07/30/23 Deisy Villar PA [address] [place] [address] [place] [address] PCP - Medical [employer] 11/30/23 11/29/99 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 Relationship Specialty Start Date End Date Robles Charles MD [address] [place] [address] PCP - General Internal Medicine 07/30/23 Deisy Villar PA [address] [place] [address] [place] [address] PCP - Medical [employer] 11/30/23 11/29/99 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 Relationship Specialty Start Date End Date Robles Charles MD PCP - General Internal Medicine 07/30/23 Deisy Villar PA [address] [place] [address] [place] [address] PCP - Medical [employer] 11/30/23 11/29/99 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 Relationship Specialty Start Date End Date Robles Charles DO PCP - General Internal Medicine 07/30/23 Deisy Villar PA [address] [place] [address] PCP - Medical [employer] 11/30/23 11/29/99 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 Relationship Specialty Start Date End Date Robles Charles DO [address] [facility] [place] [address] PCP - General Internal Medicine 07/30/23 Deisy Villar PA [address] [place] [address] [place] [address] PCP - Medical [employer] 11/30/23 11/29/99 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 Relationship Specialty Start Date End Date Robles Charles DO [address] [facility] [place] [phone] PCP - General Internal Medicine 07/30/23 Deisy Villar PA [address] [place] [address] [place] [address] PCP - Medical [employer] 11/30/23 11/29/99 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 Relationship Specialty Start Date End Date Robles Charles DO [address] [facility] [place] [address] PCP - General Internal Medicine 07/30/23 Deisy Villar PA [address] [place] [address] [address] [place], [place] [id number] PCP - Medical [employer] 11/30/23 11/29/99 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 Relationship Specialty Start Date End Date Robles Charles DO [address] [facility] [place] [address] PCP - General Internal Medicine 07/30/23 Deisy Villar PA [address] [place] [address] PCP - Medical [employer] 11/30/23 11/29/99 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 Relationship Specialty Start Date End Date Robles Charles DO [address] [facility] [place] [address] PCP - General Internal Medicine 07/30/23 Deisy Villar PA [address] [place] [address] PCP - Medical [employer] 11/30/23 11/29/99 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 Relationship Specialty Start Date End Date Robles Charles DO [address] [facility] [place] [address] PCP - General Internal Medicine 07/30/23 Deisy Villar PA [address] [place] [address] PCP - Medical [employer] 11/30/23 11/29/99 Goals (unrecognized section and content) Goals may be documented in a n alternate section INFORMATION SOURCE (unrecogn ized section and content) DATE CREATED AUTHOR 09/02/2022 [facility] DATE CREATED AUTHOR AUTHOR'S ORGANIZ ATION 09/23/2024 [facility] DATE CREATED AUTHOR AUTHOR'S ORGANIZ ATION 05/31/2025 [facility] EPIC FOR RECORDS PERTAINING [...] BE BASED ON THE PRIMARY CLINICAL RECORDS. [facility] [employer] [facility]. provides no warranty or guarantee of the accuracy or completeness of information in this document.
--- NOTE | 2025-06-10 08:05 | US_ITS ---
[place] [address] Patient Name: PHILLIP HERNANDEZ MRN: [facility]:[id number] date: 1990 Sex: F Assigned Patient Location: [facility] Current Patient Location: Accession/Order Number: [id number] Exam Date: 06/10/2025 18:36 Report Date: 06/10/2025 18:38 At the request of: LE DELVALLE DO Procedure: US OB BPP w non-stress US OB BPP w non-stress 06/10/2025 8:27 AM SIGNS AND SYMPTOMS: ^HISTORY OF MISCARRIAGE Z87.59 PROTOCOL: Grayscale, color Doppler, and duplex Doppler sonographic images of the gravid uterus COMPARISON: 06/03/2025 FINDINGS: The heart rate is 170 bpm. The amniotic fluid index is 13.24 cm with the single deepest vertical pocket measuring 6.1 cm. Biophysical profile: breathing movements: 2/2 Gross body movements: 2/2 tone: 2/2 Amniotic fluid volume: 2/2 US/US OB BPP w non-stress IMPRESSION: Biophysical profile score: 8/8 Impression dictated by: Roddy Yusuf M.D. 06/10/2025 6:38 PM Dictation Location: [facility] F[facility]ILITYJoin [facility] Electronically authenticated by: [id number] Y Date: 06/10/2025 18:38
[2025-06-10 08:29] VITALS: BP 117/73; PULSE 76; TEMP 36.1
== END 2025-06-10 08:58 | disposition home or self-care (01) ==
LOC: US 07:58 → FBC 08:01
PROVIDERS: PCP Internal Medicine; Visit Provider Obstetrics & Gynecology
DX: O09.523 Supervision of elderly multigravida, third trimester (principal); Z87.59 Personal history of other complications of pregnancy, childbirth and the puerperium; Z3A.31 31 weeks gestation of pregnancy
CPT/HCPCS: 76818

== ENCOUNTER 2025-06-17 08:03 | Outpatient (OUT) | payer OTHER, SELFPAY ==
--- OUTSIDE RECORDS SUMMARY | 2025-06-17 08:05 | XMS_ITS | CCD ---
Author Organization [facility] CliniSyny Care Team Providers Care Deployment Manager Name Role Phone Subha Dillon Unavailable [...] Gonsalves Unavailable MD Derick Timmons Attending Provider [phone] SHANNON Schaffer Attending Provider Robles Charles Unavailable MD Liz Conteh Primary Care Provider DO Delano Francis Attending Provider QUANG Villar Attending Provider [phone] DO Robles Charles Primary Care Provider Robles [...] Unavailable Robles Charles DO Primary Care Provider [facility] Delano CRESPO Attending Provider Robles Charles MD Primary Care Provider Robles Charles DO Primary Care Provider Robles Charles DO Primary Care Provider SITALEONID READY Attending Unavailable SITA, ÁNGEL Attending Unavailable ADITHYA, DEISY Attending Unavailable SITA, ÁNGEL Attending Unavailable ADITHYA, DEISY Attending Unavailable SITA, ÁNGEL Attending Unavailable SITA, ÁNGEL Attending Unavailable SITA, ÁNGEL Referring Unavailable Allergies Allergy Classification Reported Allergen(s) Allergy Type Date of Onset Reaction(s) Facility (5 sources) Penicillin V Drug Allergy rash TrackIF [facility] [place] Other (1 source) Amoxicillin Drug Allergy 0 [facility] Repository (1 source) Penicillins Drug allergy (disorder) The [facility] Repository (5 sources) Penicillin Drug Allergy rash TrackIF [facility] [place] Other (1 source) Substance with penicillin structure and antibacterial mechanism of action (substance) Drug allergy 3 PENICILLINS [facility] [place] Other (20 sources) Amoxicillin Drug Allergy 3 [facility] Healthcare (20 sources) Penicillin G Drug Allergy 3 Unknown [facility] Healthcare (1 source) Penicillins Drug allergy (disorder) 4 [facility] Repository Medications Current Medications Medication Drug Class(es) Dates Sig (Normalized) Sig (Original) aspirin 81 mg delayed release oral tablet (20 sources) Platelet Aggregation Inhibitor, Nonsteroidal Anti-inflammatory Drug [...] 12/22/2024 02/02/2025 Active Pre- (10 sources) Pre- [facility] Pre-Mack Active MV-Min-Fe Fum-FA-DH A ( 1 [...] unspecified trimester] 05-01-2025 Episodic Other complications of (4 sources) Multigravida of advanced maternal age; Translations: [Supervision of elderly multigravida, third trimester] 05-30-2025 Episodic Other complications of (2 sources) Excessive growth affecting management of mother; Translations: [Maternal care for excessive growth, third trimester, not applicable or unspecified] 06-12-2025 Episodic Other endocrine disorders (1 source) Disorder [...] Overweight Episodic Other and delivery including normal (12 sources) Second trimester ; Translations: [Encounter for [...] of ] 05-30-2025 Episodic Residual codes; unclassified (4 sources) H/O: miscarriage; Translations: [Personal history of other complications of , childbirth and the puerperium] 05-30-2025 Episodic Residual codes; unclassified (2 sources) Gestation period, 31 weeks; Translations: [31 weeks gestation of ] 06-12-2025 Episodic Unclassified (1 source) Endocrine disorder, unspecified; Translations: [Endocrine disorder, unspecified] Onset: Past or Other Problems Problem Classification Problem Date Documented Da te Episodic/Chronic Unclassified (1 source) Contact with and (suspected) exposure to covid-19 Z20.822 Viral infection (1 source) COVID-19 Onset: 12-27-2021 Resolved: 12-27-2021 Results Test Name Value Interpretation Reference Range Facility US OB BPP W NON-STRESS on 06-10-2025 [place] [address] Ultrasound Report Signed Patient: ANGELA REYES MR#: [id number] : 1990 Acct:[id number] Age/Sex: 35 / F ADM Date: 06/10/25 Loc: US Attending Dr: Ángel Buckenr D.O. Ordering Physician: Ángel Buckner D.O. Date of Service: 06/10/25 Procedure(s): US OB BPP w non-stress Accession Number(s): [id number] cc: Robles Charles D.O.; Ángel Buckner D.O. [place] [id number] Patient Name: ANGELA REYES MRN: [id number]:[id number] date: 1990 Sex: F Assigned Patient Location: [facility] Current Patient Location: Accession/Order Number: [id number] Exam Date: 06/10/2025 18:36 Report Date: 06/10/2025 18:38 At the request of: ÁNGEL BUCKNER DO Procedure: US OB BPP w non-stress US OB BPP w non-stress 06/10/2025 8:27 AM SIGNS AND SYMPTOMS: HISTORY OF MISCARRIAGE Z87.59 PROTOCOL: Grayscale, color Doppler, and duplex Doppler sonographic images of the gravid uterus COMPARISON: 06/03/2025 FINDINGS: The heart rate is 170 bpm. The amniotic fluid index is 13.24 cm with the single deepest vertical pocket measuring 6.1 cm. Biophysical profile: breathing movements: 2/2 Gross body movements: 2/2 tone: 2/2 Amniotic fluid volume: 2/2 US/US OB BPP w non-stress IMPRESSION: Biophysical profile score: 8/8 Impression dictated by: Roddy Yusuf M.D. 06/10/2025 6:38 PM Dictation Location: [place] [address] Electronically authenticated by: [id number] Y Date: 06/10/2025 18:38 Dictated By: Roddy Yusuf M.D. Signed By: 06/10/25 184 DD/ 37 TD/TT: Funeral Limousine Driver: [facility] Radiology, Radiologi MD ember - 06/10/2025 [place] [address] Ultrasound Report Signed Patient: ANGELA REYES MR#: [id number] : 1990 Acct:[id number] Age/Sex: 35 / F ADM Date: 06/10/25 Loc: US Attending Dr: Ángel Buckner D.O. Ordering Physician: Ángel Buckner D.O. Date of Service: 06/10/25 Procedure(s): US OB BPP w non-stress Accession Number(s): [id number] cc: Robles Charles D.O.; Ángel Buckner D.O. The [address] [address] Patient Name: ANGELA REYES MRN: [facility]:[id number] date: 1990 Sex: F Assigned Patient Location: [facility] Current Patient Location: Accession/Order Number: [id number] Exam Date: 06/10/2025 18:36 Report Date: 06/10/2025 18:38 At the request of: ÁNGEL BUCKNER DO Procedure: US OB BPP w non-stress US OB BPP w non-stress 06/10/2025 8:27 AM SIGNS AND SYMPTOMS: HISTORY OF MISCARRIAGE Z87.59 PROTOCOL: Grayscale, color Doppler, and duplex Doppler sonographic images of the gravid uterus COMPARISON: 06/03/2025 FINDINGS: The heart rate is 170 bpm. The amniotic fluid index is 13.24 cm with the single deepest vertical pocket measuring 6.1 cm. Biophysical profile: breathing movements: 2/2 Gross body movements: 2/2 tone: 2/2 Amniotic fluid volume: 2/2 US/US OB BPP w non-stress IMPRESSION: Biophysical profile score: 8/8 Impression dictated by: Roddy Yusuf M.D. 06/10/2025 6:38 PM Dictation Location: [place] [address] Electronically authenticated by: [id number] Y Date: 06/10/2025 18:38 Dictated By: Roddy Yusuf M.D. Signed By: 06/10/25 184 DD/ 183 TD/TT: Funeral Limousine Driver: [facility] Radiology Study observation (narrative) [facility] US OB BPP W NON-STRESS Ordered By: Radiologist Radiology on 06-10-2025 [facility] [employer] Work Phone: US OB BPP W NON-STRESS on 06-03-2025 [place] [address] Ultrasound Report Signed Patient: ANGELA REYES MR#: [id number] : 1990 Acct:[id number] Age/Sex: 35 / F ADM Date: 06/03/25 Loc: US Attending Dr: Ángel Buckner D.O. Ordering Physician: Ángel Buckner D.O. Date of Service: 06/03/25 Procedure(s): US OB BPP w non-stress Accession Number(s): [id number] cc: Robles Charles D.O.; Ángel Buckner D.O. The [place] [id number] Patient Name: ANGELA REYES MRN: [facility]:[id number] date: 1990 Sex: F Assigned Patient Location: [facility] Current Patient Location: Accession/Order Number: [id number] Exam Date: 06/03/2025 14:22 Report Date: 06/03/2025 [...] Durand M.D. 06/03/2025 2:23 PM Dictation Location: [place] [address] Electronically authenticated by: [id number] Y Date: 06/03/2025 14:23 Dictated By: Aguilar Durand D.O. Signed By: 06/03/25 1425 DD/ 1423 TD/TT: Funeral Limousine Driver: JESSICA Radiology, Radiologbrittanie pa MD - 06/03/2025 [place] [address] Ultrasound Report Signed Patient: ANGELA REYES MR#: [id number] : 1990 Acct:[id number] Age/Sex: 35 / F ADM Date: 06/03/25 Loc: US Attending Dr: Ángel Buckner D.O. Ordering Physician: Ángel Buckner D.O. Date of Service: 06/03/25 Procedure(s): US OB BPP w non-stress Accession Number(s): [id number] cc: Robles Charles D.O.; Ángel Buckner D.O. The [place] [address] Patient Name: ANGELA REYES MRN: [facility]:[id number] date: 1990 Sex: F Assigned Patient Location: [facility] Current Patient Location: Accession/Order Number: [id number] Exam Date: 06/03/2025 14:22 Report Date: 06/03/2025 [...] Durand M.D. 06/03/2025 2:23 PM Dictation Location: [facility] Electronically authenticated by: [id number] Y Date: 06/03/2025 14:23 Dictated By: Aguilar Durand D.O. Signed By: 06/03/251424 DD/ 22 TD/TT: Funeral Limousine Driver: [facility] Radiology Study observation (narrative) [facility] US OB BPP W NON-STRESS Ordered By: Radiologist Radiology on 06-03-2025 [facility] Work Phone: Urinalysis macro (dipstick) panel (U)on 05-30-2025 Bilirubin, UA Negative Negative - 4(70) +++ mg/dL [facility] Blood, UA Negative Negative - 50 Ezequiel/mcL [facility] Clarity, UA Clear [facility] Color, UA Yellow [facility] Glucose, UA Negative Negative - 1999(110) ++++ mg/dL [facility] Interpretation and review of laboratory results Normal [facility] Ketones, UA Negative Negative - 160(16) ++++ mg/dL [facility] Leukocytes, UA Negative Negative - 500+++ Jason/mcL [facility] Nitrite, UA Negative Negative - Positive [facility] pH, UA 5.5 5 - 9 [facility] Protein, UA Negative Negative - 1999(20) ++++ mg/dL [facility] Spec Grav, UA 1.02 1 - 1.03 [facility] Urobilinogen, UA 1.0 0.2 - 12 mg/dL [facility] OB GROWTHon 05-11-[address] [address] Ultrasound Report Signed Patient: ANGELA REYES MR#: [id number] : 1990 Acct:[id number] Age/Sex: 35 / F ADM Date: 05/11/25 Loc: US Attending Dr: Edson Dewitt Ordering Physician: Edson Dewitt Date of Service: 05/11/25 Procedure(s): US OB growth Accession Number(s): [id number] cc: Robles Charles D.O.; Edson Dewitt [place] [address] Patient Name: ANGELA REYES MRN: [facility]:[id number] date: 1990 Sex: F Assigned Patient Location: US Current Patient Location: US Accession/Order Number: [id number] Exam Date: 05/11/2025 14:38 Report Date: 05/11/2025 [...] Jr., D.O. 05/11/2025 2:40 PM Dictation Location: [place] [address] Electronically authenticated by: [id number] Y Date: 05/11/2025 14:40 Dictated By: Justin Mack M.D. Signed By: 05/11/25 144 DD/ 39 TD/TT: Funeral Limousine Driver: [facility] Radiology, Radiologi st, MD - 05/11/2025 [place] [address] Ultrasound Report Signed Patient: ANGELA REYES MR#: [id number] : 1990 Acct:[id number] Age/Sex: 35 / F ADM Date: 05/11/25 Loc: US Attending Dr: Edson Dewitt Ordering Physician: Edson Dewitt Date of Service: 05/11/25 Procedure(s): US OB growth Accession Number(s): [id number] cc: Robles Charles D.O.; Edson Dewitt The [place] [address] Patient Name: ANGELA REYES MRN: [facility]:[id number] date: 1990 Sex: F Assigned Patient Location: US Current Patient Location: US Accession/Order Number: [id number] Exam Date: 05/11/2025 14:38 Report Date: 05/11/2025 [...] Jr., D.O. 05/11/2025 2:40 PM Dictation Location: [place] [address] Electronically authenticated by: [id number] Y Date: 05/11/2025 14:40 Dictated By: Justin Mack M.D. Signed By: 05/11/25 1442 DD/ 39 TD/TT: Funeral Limousine Driver: [facility] Radiology Study observation (narrative) [facility] US OB GROWTHOrdered By: Reg ologdarwin Radiology on 05-11-2025 [facility] Work Phone: ALL CBC WITH AUTO DIFFon BASOPHILS ABSOLUTE AUTO 0 N [facility] Basophils/100 WBC (Bld) 0.2 % 0.2 - 2.0 % [facility] Eosinophils/100 WBC (Bld) 1.2 % 0.9 - 7.0 % [facility] Erythrocyte distribution width (RBC) [Ratio] 13.2 % 11.0 - 15.0 % [facility] Hematocrit (Bld) [Volume fraction] 31.9 % Low 36.0 - 48.0 % [facility] Hemoglobin (Bld) [Mass/Vol] 10.6 g/dL Low 12.0 - 16.0 g/dL [facility] IMMATURE GRANULOCYTES ABS AUTO 0.06 High [facility] Immature granulocytes/100 WBC (Bld) 0.6 % High 0.0 - 0.5 % [facility] Interpretation and review of laboratory results Abnormal [facility] LYMPHOCYTES ABSOLUTE AUTO 1.6 [facility] Lymphocytes/100 WBC (Bld) 15.6 % Low 20.5 - 60.0 % [facility] MCH (RBC) [Entitic mass] 32.6 pg 26.7 - 34.0 pg [facility] MCHC (RBC) [Mass/Vol] 33.2 g/dL 29.9 - 35.2 g/dL [facility] MCV (RBC) [Entitic vol] 98.2 fL 81.0 - 99.0 fL [facility] MONOCYTES ABSOLUTE AUTO 0.6 N [facility] Monocytes/100 WBC (Bld) 6 % 1.7 - 12.0 % [facility] NEUTROPHILS ABSOLUTE AUTO 7.7 High [facility] Neutrophils/100 WBC (Bld) 76.4 % High 43.0 - 75.0 % [facility] Platelet mean volume (Bld) [Entitic vol] 9 fL Low 9.5 - 13.5 fL [facility] TBH EO # 0.1 [facility] TBH PLT 313 [facility] TB RBC 3.25 Low [facility] TBH WBC 10.1 [facility] GLUCOSE 1 HOURon 04-18-2025 Glucose [Mass/Vol] 96 mg/dL NINF - 13 0 mg/dL [facility] No Panel Informationon 04-18 [facility] US OB LIMITED 1+ FETUSESon 0 04-18-2025 [...] II, MD, PHD at 21-Apr-2025 12:15:59 PM [facility] [place] Teleradiology Normal Not Available Comment on above: Order Comment: US OB INCOMPLETE ANATOMY W US OB TRANSVAGINAL Estimated Date of Delivery: 08/09/25 Gestational Age as of 03/30/2025: 21w1d Urinalysis macro (dipstick) panel (U)on 03-30-2025 Bilirubin, UA Negative Negative - 4(70) +++ mg/dL [facility] Blood, UA Negative Negative - 50 Ezequiel/mcL [facility] Clarity, UA Clear [facility] Color, UA Yellow [facility] Glucose, UA Negative Negative - 2000(110) ++++ mg/dL [facility] Interpretation and review of laboratory results Normal [facility] Ketones, UA Negative Negative - 160(16) ++++ mg/dL [facility] Leukocytes, UA Negative Negative - 500+++ Jason/mcL [facility] Nitrite, UA Negative Negative - Positive [facility] pH, UA 7 5 - 9 [facility] Protein, UA Negative Negative - 2000(20) ++++ mg/dL [facility] Spec Grav, UA 1.02 1 - 1.03 [facility] Urobilinogen, UA 0.2 0.2 - 12 mg/dL [facility] US OB ANATOMYon 03-21-[address] [address] Ultrasound Report Signed Patient: ANGELA REYES MR#: [id number] : 1990 Acct:[id number] Age/Sex: 35 / F ADM Date: 03/20/25 Loc: US Attending Dr: Deisy Villar Ordering Physician: Deisy Villar Date of Service: 03/20/25 Procedure(s): US OB anatomy Accession Number(s): [id number] cc: Deisy Villar; Robles Charles D.O. [place] [id number] Patient Name: ANGELA REYES MRN: [facility]:[id number] date: 1990 Sex: F Assigned Patient Location: US Current Patient Location: Accession/Order Number: [id number] Exam Date: 03/21/2025 13:12 Report Date: 03/21/2025 13:16 At the request of: DESIY VILLAR Procedure: US OB anatomy Obstetrical Ultrasound [...] Aguilar Durand M.D.03/21/2025 1:16 PM Dictation Location: [place] [address] Electronically authenticated by: [id number] Y Date: 03/21/2025 13:16 Dictated By: Aguilar Durand D.O. Signed By: 03/21/25 1319 DD/ 1316 TD/TT: Funeral Limousine Driver: [facility] Radiology, Radiologbrittanie pa MD - 03/21/2025 [place] [address] Ultrasound Report Signed Patient: ANGELA REYES MR#: [id number] : 1990 Acct:[id number] Age/Sex: 35 / F ADM Date: 03/20/25 Loc: US Attending Dr: Deisy Villar Ordering Physician: Deisy Villar Date of Service: 03/20/25 Procedure(s): US OB anatomy Accession Number(s): [id number] cc: Deisy Villar; Robles Charles D.O. The [address] [address] Patient Name: ANGELA REYES MRN: [facility]:[id number] date: 1990 Sex: F Assigned Patient Location: Current Patient Location: Accession/Order Number: [id number] Exam Date: 03/21/2025 13:12 Report Date: 03/21/2025 [...] Aguilar Durand M.D.03/21/2025 1:16 PM Dictation Location: [place] [address] Electronically authenticated by: [id number] Y Date: 03/21/2025 13:16 Dictated By: Aguilar Durand D.O. Signed By: 03/21/25 1319 DD/ 1316 TD/TT: Funeral Limousine Driver: [facility] Radiology Study observation (narrative) [facility] OB ANATOMYOrdered By: Chepe stewartogdarwin Radiology on 03-21-2025 [facility] Work Phone: US OB CERVICAL LENGTHon 03-01 [place] [id number] Ultrasound Report Signed Patient: ANGELA REYES MR#: [id number] : 1990 Acct:[id number] Age/Sex: 35 / F ADM Date: 03/20/25 Loc: US Attending Dr: Deisy Villar Ordering Physician: Deisy Villar Date of Service: 03/20/25 Procedure(s): US OB cervical length Accession Number(s): [id number] cc: Deisy Villar; Robles Charles D.O. [place] [id number] Patient Name: ANGELA REYES MRN: [id number] date: 1990 Sex: F Assigned Patient Location: US Current Patient Location: Accession/Order Number: [id number] Exam Date: 03/21/2025 09:18 Report Date: 03/21/2025 09:19 At the request of: DEISY VILLAR Procedure: US OB cervical length Ultrasound assessment of the cervical length The cervical length is 3.8 cm. The cervical os is closed. US/US OB cervical length IMPRESSION: #3.8 cm cervical length. Impression dictated by: Aguilar Durand M.D.03/21/2025 9:19 AM Dictation Location: [place] [address] Electronically authenticated by: [id number] Y Date: 03/21/2025 09:19 Dictated By: Aguilar Durand D.O. Signed By: 03/21/25921 DD/ 8 TD/TT: Funeral Limousine Driver: [facility] Radiology, Radiologi MD ember - 03/21/2025 [place] [address] Ultrasound Report Signed Patient: ANGELA REYES MR#: [id number] : 1990 Acct:[id number] Age/Sex: 35 / F ADM Date: 03/20/25 Loc: US Attending Dr: Deisy Villar Ordering Physician: Deisy Villar Date of Service: 03/20/25 Procedure(s): US OB cervical length Accession Number(s): [id number] cc: Deisy Villar; Robles Charles D.O. The [place] [id number] Patient Name: ANGELA REYES MRN: [facility]:[id number] date: 1990 Sex: F Assigned Patient Location: US Current Patient Location: Accession/Order Number: [id number] Exam Date: 03/21/2025 09:18 Report Date: 03/21/2025 09:19 At the request of: DEISY VILLAR Procedure: US OB cervical length Ultrasound assessment of the cervical length The cervical length is 3.8 cm. The cervical os is closed. US/US OB cervical length IMPRESSION: #3.8 cm cervical length. Impression dictated by: Aguilar Durand M.D.03/21/2025 9:19 AM Dictation Location: [place] [address] Electronically authenticated by: [id number] Y Date: 03/21/2025 09:19 Dictated By: Aguilar Durand D.O. Signed By: 03/21/25921 DD/ 8 TD/TT: Funeral Limousine Driver: [facility] Radiology Study observation (narrative) [facility] US OB CERVICAL LENGTHOrdered By: Radiologist Radiology on 03-21-2025 [facility] Work Phone: IGP,APTIMA HPV,AGE GDLNon AGE GDLN ACOG TESTING Note . [facility] Comment on above: TESTS RESULT FLAG UN ITS REF RANGE LAB Clinician Provided Cytology Information Source.............Cervix Other.............. No. of containers..01 ThinPrep Vial Age Algo ACOG Lara... 30-65 01 FLAG LEGEND: L-Low Normal,H-High Normal,LL-Alert Low,HH-Alert High <-Panic Low,>-Panic High,A-Abnormal,AA-Critical Abnormal Performed at: 01 =G [address] [address] Ilana Heath MD, HPV APTIMA Negative Negative [facility] Comment on above: This nucleic acid am plification test detects fourteen high- risk HPV types (16,18,31,33,35,39,45,51,52,56,58,59,66,68) without differentiation. Performed at: =G - [address] [id number] Dynamite Shooter: Ilana Heath MD, Phone: [phone] Performed at: - [address] [id number] Dynamite Shooter: Ilana Heath MD, Phone: [phone] IGP, APTIMA HPV, RFX 16/18,45 Note . [facility] Comment on above: TESTS RESULT FLAG UN ITS REF RANGE LAB DIAGNOSIS: 02 NEGATIVE FOR INTRAEPITHELIAL LESION OR MALIGNANCY. THIS SPECIMEN WAS RESCREENED PART OF OUR ACQUISITION CONSULTANT PROGRAM. Specimen adequacy: 02 Satisfactory for evaluation. No endocervical component is identified. Performed by: 03 Eugenia Kennedy, Hull Sorter (ASCP) QC reviewed by: 02 Meredith Chávez, [place] [employer] . 02 Note: Note 02 The Pap [...] High,A-Abnormal,AA-Critical Abnormal Performed at: 02 WB [facility] [address] [address] Ilana Heath MD, 03 KWCYT [facility] [facility] [address] [place] [address] Lloyd Kim MD, SPATULA-ALONE CERVIX [facility] RECURRENT VAGINITIS (HTRX)on 03-03-2025 ATOPOBIUM VAGINAE 0 [facility] ATOPOBIUM VAGINAE Not detected [facility] BVAB 2,3 (BACTERIAL VAGINOSIS ASSOCIATED BACTERIA 2, 3); MOBILUNCUS SPP 0 [facility] BVAB 2,3 (BACTERIAL VAGINOSIS ASSOCIATED BACTERIA 2, 3); MOBILUNCUS SPP Not detected [facility] Healthcare ANEUDY ALBICANS, PARAPSILOSIS, TROPICALIS 0 [facility] ANEUDY ALBICANS, PARAPSILOSIS, TROPICALIS Not detected [facility] ANEUDY GLABRATA 0 [facility] ANEUDY GLABRATA Not detected [facility] ANEUDY KRUSEI 0 [facility] ANEUDY KRUSEI Not detected [facility] CHLAMYDIA TRACHOMATIS 0 [facility] CHLAMYDIA TRACHOMATIS Not detected [facility] GARDNERELLA VAGINALIS 0 [facility] GARDNERELLA VAGINALIS Not detected [facility] MEGASPHAERA (TYPES 1, 2) 0 [facility] MEGASPHAERA (TYPES 1, 2) Not detected [facility] MYCOPLASMA GENITALIUM 0 [facility] MYCOPLASMA GENITALIUM Not detected [facility] NEISSERIA GONORRHOEAE 0 [facility] NEISSERIA GONORRHOEAE Not detected [facility] TRICHOMONAS VAGINALIS 0 [facility] TRICHOMONAS VAGINALIS Not detected [facility] Urinalysis macro (dipstick) panel (U)on 03-02-2025 Bilirubin, UA Negative Negative - 4(70) +++ mg/dL [facility] Blood, UA Negative Negative - 50 Ezequiel/mcL [facility] Clarity, UA Clear [facility] Color, UA Yellow [facility] Glucose, UA Negative Negative - 2000(110) ++++ mg/dL [facility] Interpretation and review of laboratory results Normal [facility] Ketones, UA Negative Negative - 160(16) ++++ mg/dL [facility] Leukocytes, UA Negative Negative - 500+++ Jason/mcL [facility] Nitrite, UA Negative Negative - Positive [facility] pH, UA 7 5 - 9 [facility] Protein, UA Negative Negative - 1999(20) ++++ mg/dL [facility] Spec Grav, UA 1.02 1 - 1.03 [facility] Urobilinogen, UA 0.2 0.2 - 12 mg/dL [facility] Urinalysis macro (dipstick) panel (U)on 02-02-2025 Bilirubin, UA Negative Negative - 4(70) +++ mg/dL [facility] Blood, UA Negative Negative - 50 Ezequiel/mcL [facility] Clarity, UA Clear [facility] Color, UA Yellow [facility] Glucose, UA Negative Negative - 1999(110) ++++ mg/dL [facility] Interpretation and review of laboratory results Abnormal [facility] Ketones, UA Negative Negative - 160(16) ++++ mg/dL [facility] Leukocytes, UA Trace Negative - 500+++ Jason/mcL [facility] Nitrite, UA Negative Negative - Positive [facility] pH, UA 6 5 - 9 [facility] Protein, UA Negative Negative - 1999(20) ++++ mg/dL [facility] Spec Grav, UA 1.025 1 - 1.03 [facility] Urobilinogen, UA 0.2 0.2 - 12 mg/dL [facility] ALL CBC WITH AUTO DIFFon BASOPHILS ABSOLUTE AUTO 0 N [facility] Basophils/100 WBC (Bld) 0.4 % 0.2 - 2.0 % [facility] Eosinophils/100 WBC (Bld) 2.2 % 0.9 - 7.0 % [facility] Erythrocyte distribution width (RBC) [Ratio] 12.5 % 11.0 - 15.0 % [facility] Hematocrit (Bld) [Volume fraction] 34 % Low 36.0 - 48.0 % [facility] Hemoglobin (Bld) [Mass/Vol] 11.7 g/dL Low 12.0 - 16.0 g/dL [facility] IMMATURE GRANULOCYTES ABS AUTO 0.03 [facility] Immature granulocytes/100 WBC (Bld) 0.4 % 0.0 - 0.5 % [facility] Interpretation and review of laboratory results Abnormal [facility] LYMPHOCYTES ABSOLUTE AUTO 1.6 [facility] Lymphocytes/100 WBC (Bld) 20.4 % Low 20.5 - 60.0 % [facility] MCH (RBC) [Entitic mass] 31.5 pg 26.7 - 34.0 pg [facility] MCHC (RBC) [Mass/Vol] 34.4 g/dL 29.9 - 35.2 g/dL [facility] MCV (RBC) [Entitic vol] 91.6 fL 81.0 - 99.0 fL [facility] MONOCYTES ABSOLUTE AUTO 0.6 N [facility] Monocytes/100 WBC (Bld) 7.2 % 1.7 - 12.0 % [facility] NEUTROPHILS ABSOLUTE AUTO 5.6 [facility] Neutrophils/100 WBC (Bld) 69.4 % 43.0 - 75.0 % [facility] Platelet mean volume (Bld) [Entitic vol] 9.6 fL 9.5 - 13.5 fL [facility] TBH EO # 0.2 [facility] TB PLT 302 [facility] RBC 3.71 Low [facility] WBC 8 [facility] CLINISYNC [facility] US OB TRANSVAGINALon 025 US [...] II, MD, PHD at 09-Jan-2025 09:10:54 AM [facility] [place] [facility] Normal Not Available Comment on above: Order Comment: US OB TRANSVAGINAL No LMP recorded. [facility] PREG QUANT HCGon 025 HCG QUANTITATIVE 51585 mIU/mL [facility] Comment on above: 5-50 0.2-1 WEEK 50-500 1-2 WEEKS 100-5,000 2-3 WEEKS 500-10,000 3-4 WEEKS 1,000-50,000 4-5 WEEKS 10,000-100,000 5-6 WEEKS 15,000-200,000 6-8 WEEKS 10,000-100,000 2-3 MONTHS [facility] PREG QUANT HCGon 025 HCG QUANTITATIVE 07683 mIU/mL [facility] Comment on above: 5-50 0.2-1 WEEK 50-500 1-2 WEEKS 100-5,000 2-3 WEEKS 500-10,000 3-4 WEEKS 1,000-50,000 4-5 WEEKS 10,000-100,000 5-6 WEEKS 15,000-200,000 6-8 WEEKS 10,000-100,000 2-[facility] %Ordered By: Delano Francis on 09-22-2024 Basophils/100 WBC (Bld) 0.6 % Normal . [facility] Comment on above: Performed By: #### D HESUE, JOSSE T4, [id number], SEROTON, TEST F + T, T3R, THYGLOB AB, ESTRADIOL, TPO, SHBG, ESTRONE, INSULIN, PROG #### [facility] , #### T4F, TRISTEN, TSH3, A1C WTH eA, FILIBRETO, GLU, T3F #### [place] [id number] [place] Automated basophil countOrde red By: Delnao Francis on 09-22-2024 Basophils (Bld) [#/Vol] 0.0 10*3/uL Normal 0.0-0.2 [facility] Comment on above: Result Comment: PERF ORMED BY: [place] [address] PATHOLOGIST QUALITY TESTER JOSE GOEL M.D. Performed By: #### D HEAS, LC T4, [id number], SEROTON, TEST F + T, T3R, THYGLOB AB, ESTRADIOL, TPO, SHBG, ESTRONE, INSULIN, PROG #### [facility] , #### T4F, TRISTEN, TSH3, A1C WTH eA, FILIBERTO, GLU, T3F #### [address] Automated blood monocyte cou ntOrdered By: Delano Francis on 09-22-2024 Monocytes (Bld) [#/Vol] 0.4 10*3/uL Normal 0.0-0.8 [facility] Comment on above: Performed By: #### D HEAS, LC T4, [id number], SEROTON, TEST F + T, T3R, THYGLOB AB, ESTRADIOL, TPO, SHBG, ESTRONE, INSULIN, PROG #### [facility] , #### T4F, TRISTEN, TSH3, A1C WTH eA, FILIBERTO, GLU, T3F #### [address] Automated eosinophil %Ordere d By: Delano Francis on 09-22-2024 Eosinophils/100 WBC (Bld) 1.7 % Normal . [facility] Comment on above: Performed By: #### D HEAS, LC T4, [id number], SEROTON, TEST F + T, T3R, THYGLOB AB, ESTRADIOL, TPO, SHBG, ESTRONE, INSULIN, PROG #### [facility] , #### T4F, TRISTEN, TSH3, A1C WTH eA, FILIBERTO, GLU, T3F #### [address] Automated eosinophil countOr dered By: Delano Francis on 09-22-2024 Eosinophils (Bld) [#/Vol] 0.1 10*3/uL Normal 0.0-0.45 [facility] Comment on above: Performed By: #### D HEAS, LC T4, [id number], SEROTON, TEST F + T, T3R, THYGLOB AB, ESTRADIOL, TPO, SHBG, ESTRONE, INSULIN, PROG #### [facility] , #### T4F, TRISTEN, TSH3, A1C WTH eA, FILIBERTO, GLU, T3F #### [address] Automated monocyte %Ordered By: Delano Francis on 09-22-2024 Monocytes/100 WBC (Bld) 8.7 % Normal . [facility] Comment on above: Performed By: #### D HEAS, LC T4, [id number], SEROTON, TEST F + T, T3R, THYGLOB AB, ESTRADIOL, TPO, SHBG, ESTRONE, INSULIN, PROG #### [facility] , #### T4F, TRISTEN, TSH3, A1C WTH eA, FILIBERTO, GLU, T3F #### [address] Automated neutrophil %Ordere d By: Delano Francis on 09-22-2024 Neutrophils/100 WBC (Bld) 63.7 % Normal . [facility] Comment on above: Performed By: #### D HEAS, LC T4, [id number], SEROTON, TEST F + T, T3R, THYGLOB AB, ESTRADIOL, TPO, SHBG, ESTRONE, INSULIN, PROG #### [facility] , #### T4F, TRISTEN, TSH3, A1C WTH eA, FILIBERTO, GLU, T3F #### [address] Basophils Auto (Bld) [#/Vol] Ordered By: Delano Francis on 09-22-2024 Basophils (Bld) [#/Vol] Automated basophil count 0.0-0.2 [facility] Basophils/100 WBC Auto (Bld) Ordered By: Delano Francis on 09-22-2024 Basophils/100 WBC (Bld) Automated basophil % . [facility] Calcium [Mass/volume] in Ser um or PlasmaOrdered By: Delano Francis on 09-22-2024 Calcium [Mass/Vol] 9.4 mg/dL Normal 8.6-10.3 [facility] Comment on above: Performed By: #### D DANIELLEAS, LC T4, [id number], SEROTON, TEST F + T, T3R, THYGLOB AB, ESTRADIOL, TPO, SHBG, ESTRONE, INSULIN, PROG #### [facility] , #### T4F, TRISTEN, TSH3, A1C WTH eA, FILIBERTO, GLU, T3F #### [facility] [address] Calcium [Mass/Vol] Calcium [Mass/volume ] in Serum or Plasma 8.6-10.3 [facility] Carbon dioxide, total [Moles /volume] in Serum or PlasmaOrdered By: Delano Francis on 09-22-2024 CO2 [Moles/Vol] 29.2 mmol/L Normal 21.0-31.0 [facility] Comment on above: Performed By: #### D DANIELLEAS, LC T4, [id number], SEROTON, TEST F + T, T3R, THYGLOB AB, ESTRADIOL, TPO, SHBG, ESTRONE, INSULIN, PROG #### [facility] , #### T4F, TRISTEN, TSH3, A1C WTH eA, FILIBERTO, GLU, T3F #### [facility] [address] [place] [address] [place] CO2 [Moles/Vol] Carbon dioxide, tota l [Moles/volume] in Serum or Plasma 21.0-31.0 [facility] Chloride [Moles/volume] in S stevo or PlasmaOrdered By: Delano Francis on 09-22-2024 Chloride [Moles/Vol] 105 mmol/L Normal 98-107 [facility] Comment on above: Performed By: #### D HEAS, LC T4, [id number], SEROTON, TEST F + T, T3R, THYGLOB AB, ESTRADIOL, TPO, SHBG, ESTRONE, INSULIN, PROG #### [facility] , #### T4F, TRISTEN, TSH3, A1C WTH eA, FILIBERTO, GLU, T3F #### [facility] [address] Chloride [Moles/Vol] Chloride [Moles/vol ume] in Serum or Plasma [facility] Cholesterol [Mass/volume] in Serum or PlasmaOrdered By: Delano Francis on 09-22-2024 Cholesterol [Mass/Vol] 217 mg/dL High 140-200 [facility] Comment on above: Chol less than 200 m g/dl low riskChol 201-239 mg/dl borderline riskChol 240 mg/dl and greater high risk Result Comment: Chol less than 200 mg/dl low risk Chol 201-239 mg/dl borderline risk Chol 240 mg/dl and greater high risk Performed By: #### D HEAS, LC T4, [id number], SEROTON, TEST F + T, T3R, THYGLOB AB, ESTRADIOL, TPO, SHBG, ESTRONE, INSULIN, PROG #### [facility] , #### T4F, TRISTEN, TSH3, A1C WTH eA, FILIBERTO, GLU, T3F #### [facility] [address] Cholesterol [Mass/Vol] Cholesterol [Mass/volume] in Serum or Plasma High 140-200 [facility] Comment on above: Chol less than 200 m g/dl low riskChol 201-239 mg/dl borderline riskChol 240 mg/dl and greater high risk Cholesterol in HDL [Mass/vol ume] in Serum or PlasmaOrdered By: Delano Francis on 09-22-2024 Cholesterol in HDL [Mass/Vol] Serum or plasma high density lipoprotein (HDL) cholesterol measurement [facility] Comment on above: HDL CHOL ATP-III CLA SSIFICATION Cardiovascular RiskHDL > or equal to 60 mg/dL LOWHDL < 40 mg/dL HIGH Cholesterol in LDL Calc [Mas s/Vol]Ordered By: Delano Francis on 09-22-2024 Cholesterol in LDL [Mass/Vol] 148 mg/dL High 0-100 [facility] Comment on above: LDL ATP III CLASSIFI CATIONLDL less than 100 mg/dL OptimalLDL 100-129 mg/dL Near or above optimalLDL 130-159 mg/dL Borderline highLDL 160-189 mg/dL HighLDL greater than 189 mg/dL Very high Cholesterol in LDL [Mass/Vol] Cholesterol in LDL [Mass/volume] in Serum or Plasma by calculation High 0-100 [facility] Comment on above: LDL ATP III CLASSIFI CATIONLDL less than 100 mg/dL OptimalLDL 100-129 mg/dL Near or above optimalLDL 130-159 mg/dL Borderline highLDL 160-189 mg/dL HighLDL greater than 189 mg/dL Very high Cholesterol in VLDL Calc [Ma ss/Vol]Ordered By: Delano Francis on 09-22-2024 Cholesterol in VLDL [Mass/Vol] 10 mg/dL [facility] Cholesterol in VLDL [Mass/Vol] Cholesterol in VLDL [Mass/volume] in Serum or Plasma by calculation [facility] Creatinine [Mass/volume] in Serum or PlasmaOrdered By: Delano Francis on 09-22-2024 Creatinine [Mass/Vol] 0.73 mg/dL Normal 0.60-1.20 [facility] Comment on above: Performed By: #### D HEAS, LC T4, [id number], SEROTON, TEST F + T, T3R, THYGLOB AB, ESTRADIOL, TPO, SHBG, ESTRONE, INSULIN, PROG #### [facility] , #### T4F, TRISTEN, TSH3, A1C WTH eA, FILIBERTO, GLU, T3F #### [facility] [address] Creatinine [Mass/Vol] Creatinine [Mass/v olume] in Serum or Plasma 0.60-1.20 [facility] Employee Basic Metabolic [place] 09-22-2024 GFR/1.73 sq M.predicted MDRD (S/P/Bld) [Vol rate/Area] mL/min/{1.73_m2} Normal [facility] Comment on above: Performed By: #### D HEAS, LC T4, [id number], SEROTON, TEST F + T, T3R, THYGLOB AB, ESTRADIOL, TPO, SHBG, ESTRONE, INSULIN, PROG #### [facility] , #### T4F, TRISTEN, TSH3, A1C WTH eA, FILIBERTO, GLU, T3F #### [facility] [address] Employee Complete Blood Coun ton 09-22-2024 Mean Corpuscular HGB Conc 34.2 g/dL Normal 32.0-35.0 [facility] Comment on above: Performed By: #### D HEAS, LC T4, [id number], SEROTON, TEST F + T, T3R, THYGLOB AB, ESTRADIOL, TPO, SHBG, ESTRONE, INSULIN, PROG #### [facility] , #### T4F, TRISTEN, TSH3, A1C WTH eA, FILIBERTO, GLU, T3F #### [address] NRBC% 0.0 /100{WBC} Normal 0-0.5 [facility] Comment on above: Performed By: #### D HEAS, LC T4, [id number], SEROTON, TEST F + T, T3R, THYGLOB AB, ESTRADIOL, TPO, SHBG, ESTRONE, INSULIN, PROG #### [facility] , #### T4F, TRISTEN, TSH3, A1C WTH eA, FILIBERTO, GLU, T3F #### [address] Employee Lipid Profileon LDL Cholesterol,Calculated 148 mg/dL High 0-100 [facility] Comment on above: Result Comment: LDL ATP III CLASSIFICATION LDL less than 100 mg/dL Optimal LDL 100-129 mg/dL Near or above optimal LDL 130-159 mg/dL Borderline high LDL 160-189 mg/dL High LDL greater than 189 mg/dL Very high Performed By: #### D HEAS, LC T4, [id number], SEROTON, TEST F + T, T3R, THYGLOB AB, ESTRADIOL, TPO, SHBG, ESTRONE, INSULIN, PROG #### [facility] , #### T4F, TRISTEN, TSH3, A1C WTH eA, FILIBERTO, GLU, T3F #### [address] Triglyceride w/Reflex 52 mg/dL Normal 0-149 [facility] Comment on above: Result Comment: TRIG ATP III CLASSIFICATION TRIG less than 150 mg/dL Normal TRIG 150-199 mg/dL Borderline high TRIG 200-500 mg/dL High TRIG greater than 500 mg/dL Very high Standard traceable to the Center for Disease Conrtrol and Prevention (CDC) test method. Performed By: #### D VENITA, LC T4, [id number], SEROTON, TEST F + T, T3R, THYGLOB AB, ESTRADIOL, TPO, SHBG, ESTRONE, INSULIN, PROG #### [facility] , #### T4F, TRISTEN, TSH3, A1C WTH eA, FILIBERTO, GLU, T3F #### [address] VLDL CHOLESTEROL 10 mg/dL Normal [facility] Comment on above: Performed By: #### D VEINTA, LC T4, [id number], SEROTON, TEST F + T, T3R, THYGLOB AB, ESTRADIOL, TPO, SHBG, ESTRONE, INSULIN, PROG #### [facility] , #### T4F, TRISTEN, TSH3, A1C WTH eA, FILIBERTO, GLU, T3F #### [address] Employee Thyroid Stim [employer] [place] 09-22-2024 Employee Thyroid Stim Hormone 2.30 u[iU]/mL Normal 0.45-5.33 [facility] Comment on above: Result Comment: PERF ORMED BY: [place] [address] PATHOLOGIST QUALITY TESTER JOSE GOEL M.D. Performed By: #### D HEAS, LC T4, [id number], SEROTON, TEST F + T, T3R, THYGLOB AB, ESTRADIOL, TPO, SHBG, ESTRONE, INSULIN, PROG #### [facility] , #### T4F, TRISTEN, TSH3, A1C WTH eA, FILIBERTO, GLU, T3F #### [facility] [address] Eosinophils Auto (Bld) [#/Vo l]Ordered By: Delano Francis on 09-22-2024 Eosinophils (Bld) [#/Vol] Automated eosinophil count 0.0-0.45 [facility] Eosinophils/100 WBC Auto (Bl d)Ordered By: Delano Francis on 09-22-2024 Eosinophils/100 WBC (Bld) Automated eosinophil % . [facility] Erythrocyte distribution wid th Auto (RBC) [Ratio]Ordered By: Delano Francis on 09-22-2024 Erythrocyte distribution width (RBC) [Ratio] Erythrocyte distribution width [Ratio] by Automated count 11.9-15.3 [facility] Erythrocyte distribution wid th [Ratio] by Automated countOrdered By: Delano Francis on 09-22-2024 Erythrocyte distribution width (RBC) [Ratio] 13.2 % Normal 11.9-15.3 [facility] Comment on above: Performed By: #### D HEAS, LC T4, [id number], SEROTON, TEST F + T, T3R, THYGLOB AB, ESTRADIOL, TPO, SHBG, ESTRONE, INSULIN, PROG #### [facility] , #### T4F, TRISTEN, TSH3, A1C WTH eA, FILIBERTO, GLU, T3F #### [facility] [address] Erythrocytes [#/volume] in B lood by Automated countOrdered By: Delano Francis on 09-22-2024 RBC (Bld) [#/Vol] 3.91 10*6/uL Normal 3.60-5.00 [facility] Comment on above: Performed By: #### D HEAS, LC T4, [id number], SEROTON, TEST F + T, T3R, THYGLOB AB, ESTRADIOL, TPO, SHBG, ESTRONE, INSULIN, PROG #### [facility] , #### T4F, TRISTEN, TSH3, A1C WTH eA, FILIBERTO, GLU, T3F #### [facility] [address] [place] [address] [place] Glucose [Mass/volume] in Ser um or PlasmaOrdered By: Delano Francis on 09-22-2024 Glucose [Mass/Vol] 83 mg/dL Normal 70-100 [facility] Comment on above: Performed By: #### D HEAS, LC T4, [id number], SEROTON, TEST F + T, T3R, THYGLOB AB, ESTRADIOL, TPO, SHBG, ESTRONE, INSULIN, PROG #### [facility] , #### T4F, TRISTEN, TSH3, A1C WTH eA, FILIBERTO, GLU, T3F #### [facility] [address] [place] [address] [place] Glucose [Mass/Vol] Glucose [Mass/volume ] in Serum or Plasma 70-100 [facility] Hematocrit Auto (Bld) [Volum e fraction]Ordered By: Delano Francis on 09-22-2024 Hematocrit (Bld) [Volume fraction] Hematocrit [Volume Fraction] of Blood by Automated count 34.0-46.4 [facility] Hematocrit [Volume Fraction] of Blood by Automated countOrdered By: Delano Francis on 09-22-2024 Hematocrit (Bld) [Volume fraction] 35.9 % Normal 34.0-46.4 [facility] Comment on above: Performed By: #### D HEAS, LC T4, [id number], SEROTON, TEST F + T, T3R, THYGLOB AB, ESTRADIOL, TPO, SHBG, ESTRONE, INSULIN, PROG #### [facility] , #### T4F, TRISTEN, TSH3, A1C WTH eA, FILIBERTO, GLU, T3F #### [facility] [address] [place] [address] [place] Hemoglobin [Mass/volume] in BloodOrdered By: Delano Francis on 09-22-2024 Hemoglobin (Bld) [Mass/Vol] 12.3 g/dL Normal 11.8-15.4 [facility] Comment on above: Performed By: #### Adria SANTOSAS, LC T4, [id number], SEROTON, TEST F + T, T3R, THYGLOB AB, ESTRADIOL, TPO, SHBG, ESTRONE, INSULIN, PROG #### [facility] , #### T4F, TRISTEN, TSH3, A1C WTH eA, FILIBERTO, GLU, T3F #### [facility] [address] Hemoglobin (Bld) [Mass/Vol] Hemoglobin [Mass/volume] in Blood 11.8-15.4 [facility] Leukocytes [#/volume] correc calvin for nucleated erythrocytes in Blood by Automated counOrdered By: Delano Francis on 09-22-2024 WBC corrected for nucl RBC Auto (Bld) [#/Vol] 5.1 10*3/uL 3.8-11.6 [facility] WBC corrected for nucl RBC Auto (Bld) [#/Vol] Leukocytes [#/volume] corrected for nucleated erythrocytes in Blood by Automated coun 3.8-11.6 [facility] Leukocytes [#/volume] in Blo od by Automated countOrdered By: Delano Francis on 09-22-2024 WBC (Bld) [#/Vol] 5.1 10*3/uL Normal 3.8-11.6 [facility] Comment on above: Performed By: #### Adria SANTOSAS, LC T4, [id number], SEROTON, TEST F + T, T3R, THYGLOB AB, ESTRADIOL, TPO, SHBG, ESTRONE, INSULIN, PROG #### [facility] , #### T4F, TRISTEN, TSH3, A1C WTH eA, FILIBERTO, GLU, T3F #### [facility] [address] [place] [address] [place] Lymphocytes Auto (Bld) [#/Vo l]Ordered By: Delano Francis on 09-22-2024 Lymphocytes (Bld) [#/Vol] Lymphocytes [#/volume] in Blood by Automated count 1.00-4.8 [facility] Lymphocytes [#/volume] in Bl ood by Automated countOrdered By: Delano Francis on 09-22-2024 Lymphocytes (Bld) [#/Vol] 1.3 10*3/uL Normal 1.00-4.8 [facility] Comment on above: Performed By: #### D HEAS, LC T4, [id number], SEROTON, TEST F + T, T3R, THYGLOB AB, ESTRADIOL, TPO, SHBG, ESTRONE, INSULIN, PROG #### [facility] , #### T4F, TRISTEN, TSH3, A1C WTH eA, FILIBERTO, GLU, T3F #### [facility] [address] [place] [address] [place] Lymphocytes/100 WBC Auto (Bl d)Ordered By: Delano Francis on 09-22-2024 Lymphocytes/100 WBC (Bld) Lymphocytes/100 leukocytes in Blood by Automated count . [facility] Lymphocytes/100 leukocytes i n Blood by Automated countOrdered By: Delano Francis on 09-22-2024 Lymphocytes/100 WBC (Bld) 25.3 % Normal . [facility] Comment on above: Performed By: #### D HEAS, LC T4, [id number], SEROTON, TEST F + T, T3R, THYGLOB AB, ESTRADIOL, TPO, SHBG, ESTRONE, INSULIN, PROG #### [facility] , #### T4F, TRISTEN, TSH3, A1C WTH eA, FILIBERTO, GLU, T3F #### [facility] [address] MCH Auto (RBC) [Entitic mass ]Ordered By: Delano Francis on 09-22-2024 MCH (RBC) [Entitic mass] MCH [Entitic mass] by Automated count 24.7-34.3 [facility] MCH [Entitic mass] by Automa calvin countOrdered By: Delano Francis on 09-22-2024 MCH (RBC) [Entitic mass] 31.4 pg Normal 24.7-34.3 [facility] Comment on above: Performed By: #### D HEAS, LC T4, [id number], SEROTON, TEST F + T, T3R, THYGLOB AB, ESTRADIOL, TPO, SHBG, ESTRONE, INSULIN, PROG #### [facility] , #### T4F, TRISTEN, TSH3, A1C WTH eA, FILIBERTO, GLU, T3F #### [facility] [address] [place] [address] MCHC Auto (RBC) [Mass/Vol]Or dered By: Delano Francis on 09-22-2024 MCHC (RBC) [Mass/Vol] 34.2 g/dL 32.0-35.0 [facility] MCHC (RBC) [Mass/Vol] MCHC [Mass/volume] by Automated count 32.0-35.0 [facility] MCV Auto (RBC) [Entitic vol] Ordered By: Delano Francis on 09-22-2024 MCV (RBC) [Entitic vol] MCV [Entitic vol ume] by Automated count 80-100 [facility] MCV [Entitic volume] by Auto mated countOrdered By: Delano Francis on 09-22-2024 MCV (RBC) [Entitic vol] 91.7 fL Normal 80-100 [facility] Comment on above: Performed By: #### D VENITA, LC T4, [id number], SEROTON, TEST F + T, T3R, THYGLOB AB, ESTRADIOL, TPO, SHBG, ESTRONE, INSULIN, PROG #### [facility] , #### T4F, TRISTEN, TSH3, A1C WTH eA, FILIBERTO, GLU, T3F #### [facility] [address] [place] [address] Monocytes Auto (Bld) [#/Vol] Ordered By: Delano Francis on 09-22-2024 Monocytes (Bld) [#/Vol] Automated blood monocyte count 0.0-0.8 [facility] Monocytes/100 WBC Auto (Bld) Ordered By: Delano Francis on 09-22-2024 Monocytes/100 WBC (Bld) Automated monocyte % . [facility] Neutrophils Auto (Bld) [#/Vo l]Ordered By: Delano Francis on 09-22-2024 Neutrophils (Bld) [#/Vol] Neutrophils [#/volume] in Blood by Automated count 1.8-7.7 [facility] Neutrophils [#/volume] in Bl ood by Automated countOrdered By: Delano Francis on 09-22-2024 Neutrophils (Bld) [#/Vol] 3.2 10*3/uL Normal 1.8-7.7 [facility] Comment on above: Performed By: #### D HEAS, LC T4, [id number], SEROTON, TEST F + T, T3R, THYGLOB AB, ESTRADIOL, TPO, SHBG, ESTRONE, INSULIN, PROG #### [facility] , #### T4F, TRISTEN, TSH3, A1C WTH eA, FILIBERTO, GLU, T3F #### [facility] [address] Neutrophils/100 WBC Auto (Bl d)Ordered By: Delano Francis on 09-22-2024 Neutrophils/100 WBC (Bld) Automated neutrophil % . [facility] No Panel InformationOrdered By: Delano Francis on 09-22-2024 Estimated GFR (CKD-EPI) > 60.0 mL/Min [facility] Creatinine Clearance (Chem N/A [facility] Nucleated erythrocytes [Pres ence] in Blood by Automated countOrdered By: Delano Francis on 09-22-2024 Nucleated RBC Auto Ql (Bld) 0.0 /100{WBC} 0-0.5 [facility] Nucleated RBC Auto Ql (Bld) Nucleated erythrocytes [Presence] in Blood by Automated count 0-0.5 [facility] [facility] Platelet mean volume Auto (B ld) [Entitic vol]Ordered By: Delano Francis on 09-22-2024 Platelet mean volume (Bld) [Entitic vol] Platelet mean volume [Entitic volume] in Blood by Automated count 6.3-10. [facility] Platelet mean volume [Entiti c volume] in Blood by Automated countOrdered By: Delano Francis on 09-22-2024 Platelet mean volume (Bld) [Entitic vol] 7.3 fL Normal 6.3-10.7 [facility] Comment on above: Performed By: #### D HEAS, LC T4, [id number], SEROTON, TEST F + T, T3R, THYGLOB AB, ESTRADIOL, TPO, SHBG, ESTRONE, INSULIN, PROG #### [facility] , #### T4F, TRISTEN, TSH3, A1C WTH eA, FILIBERTO, GLU, T3F #### [facility] [address] [place] [address] [place] Platelets Auto (Bld) [#/Vol] Ordered By: Delano Francis on 09-22-2024 Platelets (Bld) [#/Vol] Platelets [#/vol ume] in Blood by Automated count 150-450 [facility] Platelets [#/volume] in Bloo d by Automated countOrdered By: Delano Francis on 09-22-2024 Platelets (Bld) [#/Vol] 328 10*3/uL Normal 150-450 [facility] Comment on above: Performed By: #### D DANIELLEAS, LC T4, [id number], SEROTON, TEST F + T, T3R, THYGLOB AB, ESTRADIOL, TPO, SHBG, ESTRONE, INSULIN, PROG #### [facility] , #### T4F, TRISTEN, TSH3, A1C WTH eA, FILIBERTO, GLU, T3F #### [facility] [address] [place] [address] [place] Potassium [Moles/volume] in Serum or PlasmaOrdered By: Delano Francis on 09-22-2024 Potassium [Moles/Vol] 4.5 mmol/L Normal 3.5-5.1 [facility] Comment on above: Performed By: #### D HEAS, LC T4, [id number], SEROTON, TEST F + T, T3R, THYGLOB AB, ESTRADIOL, TPO, SHBG, ESTRONE, INSULIN, PROG #### [facility] , #### T4F, TRISTEN, TSH3, A1C WTH eA, FILIBERTO, GLU, T3F #### [facility] [address] [place] [address] [place] Potassium [Moles/Vol] Potassium [Moles/v olume] in Serum or Plasma 3.5-5.1 [facility] RBC Auto (Bld) [#/Vol]Ordere d By: Delano Francis on 09-22-2024 RBC (Bld) [#/Vol] Erythrocytes [#/volu me] in Blood by Automated count 3.60-5.00 [facility] Serum or plasma anion gap de terminationOrdered By: Delano Francis on 09-22-2024 Anion gap [Moles/Vol] 8.3 mmol/L Normal 6.0-15.0 [facility] Comment on above: Performed By: #### D HEAS, LC T4, [id number], SEROTON, TEST F + T, T3R, THYGLOB AB, ESTRADIOL, TPO, SHBG, ESTRONE, INSULIN, PROG #### [facility] , #### T4F, TRISTEN, TSH3, A1C WTH eA, FILIBERTO, GLU, T3F #### [facility] [address] Anion gap [Moles/Vol] Serum or plasma an ion gap determination 6.0-15.0 [facility] Serum or plasma high density lipoprotein (HDL) cholesterol measurementOrdered By: Delano Francis on 09-22-2024 Cholesterol in HDL [Mass/Vol] 59 mg/dL Normal 23-92 [facility] Comment on above: HDL CHOL ATP-III CLA SSIFICATION Cardiovascular RiskHDL > or equal to 60 mg/dL LOWHDL < 40 mg/dL HIGH Result Comment: HDL CHOL ATP-III CLASSIFICATION Cardiovascular Risk HDL > or equal to 60 mg/dL LOW HDL < 40 mg/dL HIGH Performed By: #### D HEAS, LC T4, [id number], SEROTON, TEST F + T, T3R, THYGLOB AB, ESTRADIOL, TPO, SHBG, ESTRONE, INSULIN, PROG #### [facility] , #### T4F, TRISTEN, TSH3, A1C WTH eA, FILIBERTO, GLU, T3F #### [facility] [address] Serum or plasma total choles terol/high density lipoprotein (HDL) cholesterol mass ratOrdered By: Delano Francis on 09-22-2024 Cholesterol.total/Alivia sterol in HDL [Mass ratio] 3.7 {ratio} Normal <5.0 [facility] Comment on above: Performed By: #### D VENITA, LC T4, [id number], SEROTON, TEST F + T, T3R, THYGLOB AB, ESTRADIOL, TPO, SHBG, ESTRONE, INSULIN, PROG #### [facility] , #### T4F, TRISTEN, TSH3, A1C WTH eA, FILIBERTO, GLU, T3F #### [facility] [address] Cholesterol.total/Alivia sterol in HDL [Mass ratio] Serum or plasma total cholesterol/high density lipoprotein (HDL) cholesterol mass rat <5.0 [facility] Sodium [Moles/volume] in Ser um or PlasmaOrdered By: Delano Francis on 09-22-2024 Sodium [Moles/Vol] 138 mmol/L Normal 136-145 [facility] Comment on above: Performed By: #### Adria NATHAN, LC T4, [id number], SEROTON, TEST F + T, T3R, THYGLOB AB, ESTRADIOL, TPO, SHBG, ESTRONE, INSULIN, PROG #### [facility] , #### T4F, TRISTEN, TSH3, A1C WTH eA, FILIBERTO, GLU, T3F #### [facility] [address] [place] [address] [place] Sodium [Moles/Vol] Sodium [Moles/volume ] in Serum or Plasma 136-145 [facility] Thyrotropin [Units/volume] i n Serum or PlasmaOrdered By: Delano Francis on 09-22-2024 TSH Qn 2.30 m[IU]/L 0.45-5.33 [facility] TSH Qn Thyrotropin [Units/volume] in Serum or Plasma 0.45-5.33 [facility] Triglyceride [Mass/volume] i n Serum or PlasmaOrdered By: Delano Francis on 09-22-2024 Triglyceride [Mass/Vol] 52 mg/dL 0-149 [facility] Comment on above: TRIG ATP III CLASSIF ICATIONTRIG less than 150 mg/dL NormalTRIG 150-199 mg/dL Borderline highTRIG 200-500 mg/dL High TRIG greater than 500 mg/dL Very highStandard traceable to the Center for Disease Conrtrol and Prevention (CDC) test method. Triglyceride [Mass/Vol] Triglyceride [Mass/volume] in Serum or Plasma 0-149 [facility] Comment on above: TRIG ATP III CLASSIF ICATIONTRIG less than 150 mg/dL NormalTRIG 150-199 mg/dL Borderline highTRIG 200-500 mg/dL High TRIG greater than 500 mg/dL Very highStandard traceable to the Center for Disease Conrtrol and Prevention (CDC) test method. Urea nitrogen [Mass/volume] in Serum or PlasmaOrdered By: Delano Francis on 09-22-2024 Urea nitrogen [Mass/Vol] 9 mg/dL Normal 06-23 [facility] Comment on above: Performed By: #### D HEAS, LC T4, [id number], SEROTON, TEST F + T, T3R, THYGLOB AB, ESTRADIOL, TPO, SHBG, ESTRONE, INSULIN, PROG #### [facility] , #### T4F, TRISTEN, TSH3, A1C WTH eA, FILIBERTO, GLU, T3F #### [address] Urea nitrogen [Mass/Vol] Urea nitrogen [Mass/volume] in Serum or Plasma 06-23 [facility] WBC Auto (Bld) [#/Vol]Ordere d By: Delano Francis on 09-22-2024 WBC (Bld) [#/Vol] Leukocytes [#/volume ] in Blood by Automated count 3.8-11.6 [facility] IGP,APTIMA HPV,AGE GDLNon AGE GDLN ACOG TESTING Note . [facility] Comment on above: TESTS RESULT FLAG UN ITS REF RANGE LAB Clinician Provided Cytology Information Source.............Cervix;Endocervix No. of containers..01 ThinPrep Vial Age Radha SPRINGER Lara... 30 FLAG LEGEND: L-Low Normal,H-High Normal,LL-Alert Low,HH-Alert High <-Panic Low,>-Panic High,A-Abnormal,AA-Critical Abnormal Performed at: 01 =[address] [id number] Ilana Heath MD, HPV APTIMA Negative Negative [facility] Comment on above: This nucleic acid am plification test detects fourteen high- risk HPV types (16,18,31,33,35,39,45,51,52,56,58,59,66,68) without differentiation. Performed at: =[address] [id number] Dynamite Shooter: Ilana Heath MD, Phone: [phone] Performed at: [address] [id number] Dynamite Shooter: Ilana Heath MD, Phone: [phone] IGP, APTIMA HPV, RFX 16/18,45 Note . [facility] Comment on above: TESTS RESULT FLAG UN ITS REF RANGE LAB DIAGNOSIS: 02 NEGATIVE FOR INTRAEPITHELIAL LESION OR MALIGNANCY. Specimen adequacy: 02 Satisfactory for evaluation. No endocervical component is identified. Performed by: 02 Chema Camargo, Flatwork Feeder (ASCP) . 02 Note: Note 02 The [...] High,A-Abnormal,AA-Critical Abnormal Performed at: 02 [facility] [address] [phone] Ilana Heath MD, BRUSH-SPATULA CERVIX [facility] 1,25 Dihydroxy Vit D Calcitr olon 01-07-2024 1,25 Dihydroxy Vit D Calcitrol 56.6 pg/mL Normal 24.8-81.5 [facility] Comment on above: Result Comment: Perf ormed at: BN - [facility] [address] [id number] Dynamite Shooter: Quinton Wolf MD, Phone: [phone] Performed By: #### D JOSSE NATHAN T4, [id number], SEROTON, TEST F + T, T3R, THYGLOB AB, ESTRADIOL, TPO, SHBG, ESTRONE, INSULIN, PROG #### [facility] , #### T4F, TIRSTEN, TSH3, A1C WTH eA, FILIBERTO, GLU, T3F #### [facility] [address] A1C with Estimated Average G luon 01-07-2024 Glucose [Mass/Vol] 105 mg/dL Normal [facility] Comment on above: Result Comment: PERF ORMED BY: [place] [address] PATHOLOGIST QUALITY TESTER JOSE GOEL M.D. Performed By: #### D HEAS, LC T4, [id number], SEROTON, TEST F + T, T3R, THYGLOB AB, ESTRADIOL, TPO, SHBG, ESTRONE, INSULIN, PROG #### [facility] , #### T4F, TRISTEN, TSH3, A1C WTH eA, FILIBERTO, GLU, T3F #### [address] Antithyroglobulin Abon 01-07 Antithyroglobulin Ab <1.0 Normal 0.0-0.9 [facility] Comment on above: Result Comment: Thyr oglobulin Antibody measured by Phase Holographic Imaging Methodology Performed at: - [address] [id number] Dynamite Shooter: Baudilio Leyva PhD, Phone: [phone] Performed By: #### D HEAS, LC T4, [id number], SEROTON, TEST F + T, T3R, THYGLOB AB, ESTRADIOL, TPO, SHBG, ESTRONE, INSULIN, PROG #### [facility] , #### T4F, TRISTEN, TSH3, A1C WTH eA, FILIBERTO, GLU, T3F #### [address] Cortisolon 01-07-2024 Cortisol 6.8 ug/dL Normal [facility] Comment on above: Result Comment: Refe rence range: AM 6 - 24 ug/dl PM <10 ug/dl [facility] scenario writer and method: HELGA UNICEL DXI, POLYCLONAL ANTIBODY CORTISOL ASSAY. PERFORMED BY: [address] [place] [address] PATHOLOGIST QUALITY TESTER JOSE GOEL M.D. Performed By: #### D HEAS, LC T4, [id number], SEROTON, TEST F + T, T3R, THYGLOB AB, ESTRADIOL, TPO, SHBG, ESTRONE, INSULIN, PROG #### [facility] , #### T4F, TRISTEN, TSH3, A1C WTH eA, FILIBERTO, GLU, T3F #### [address] Dehydroepiandrosterone Sulfa teOrdered By: Deisy Villar on 01-07-2024 Dehydroepiandrosterone Sulfate 174.0 ug/dL Normal 84.8-378.0 [facility] Comment on above: Performed By: #### Adria SANTOSAS, LC T4, [id number], SEROTON, TEST F + T, T3R, THYGLOB AB, ESTRADIOL, TPO, SHBG, ESTRONE, INSULIN, PROG #### [facility] , #### T4F, TRISTEN, TSH3, A1C WTH eA, FILIBERTO, GLU, T3F #### [address] Estradiolon 01-07-2024 Estradiol 300.0 pg/mL Normal . [facility] Comment on above: Result Comment: Adul t Female Range Follicular phase 12.5 - 166.0 Ovulation phase 85.8 - 498.0 Luteal phase 43.8 - 211.0 Postmenopausal <6.0 - 54.7 1st trimester 215.0 - >4300.0 Elías ECLIA methodology Performed By: #### D DANIELLEAS, LC T4, [id number], SEROTON, TEST F + T, T3R, THYGLOB AB, ESTRADIOL, TPO, SHBG, ESTRONE, INSULIN, PROG #### [facility] , #### T4F, TRISTEN, TSH3, A1C WTH eA, FILIBERTO, GLU, T3F #### [facility] [address] [place] [id number] [facility] Estrone, Serumon 01-07-2024 Estrone, Serum 46 pg/mL Normal 27-231 [facility] Comment on above: Result Comment: Joo hadley Adult (Premenopausal) 27 - 231 Menstrual Cycle (1-10 days) 19 - 149 Menstrual Cycle (11-20 days) 32 - 176 Menstrual Cycle (21-30 days) 37 - 200 Performed at: [address] [id number] Dynamite Shooter: Quinton Wolf MD, Phone: [phone] Performed By: #### D VENITA, LC T4, [id number], SEROTON, TEST F + T, T3R, THYGLOB AB, ESTRADIOL, TPO, SHBG, ESTRONE, INSULIN, PROG #### [facility] , #### T4F, TRISTEN, TSH3, A1C WTH eA, FILIBERTO, GLU, T3F #### [facility] [address] [place] [address] [place] Ferritin [Mass/volume] in Se rum or PlasmaOrdered By: Deisy Villar on 01-07-2024 Ferritin [Mass/Vol] 44.8 ng/mL Normal 11.0-306.8 [facility] Comment on above: Performed By: #### D HESUE, LC T4, [id number], SEROTON, TEST F + T, T3R, THYGLOB AB, ESTRADIOL, TPO, SHBG, ESTRONE, INSULIN, PROG #### [facility] , #### T4F, TRISTEN, TSH3, A1C WTH eA, FILIBERTO, GLU, T3F #### [facility] [address] Free testosterone measuremen t by LC-MS/MSOrdered By: Deisy Villar on 01-07-2024 Testosterone Free [Mass/Vol] 0.3 pg/mL 0.0-4.2 [facility] Comment on above: Performed at: [facility] faviola [address] [id number] Director: Baudilio Leyva PhD, Phone: [phone] at: [facility] [address] [id number] Director: Quinton Wolf MD, Phone: [phone] Glucose [Mass/volume] in Ser um or PlasmaOrdered By: Deisy Villar on 01-07-2024 Glucose [Mass/Vol] 84 mg/dL Normal 70-100 [facility] Comment on above: ADA recommended refe rence rangeRandom Glucose Reference Range is dependent on time and content of last meal. Glucose of more than 200 mg/dL in a nonstressed, ambulatory subject supports the diagnosis of Diabetes Mellitus. Result Comment: [place] om Glucose Reference Range is dependent on time and content of last meal. Glucose of more than 200 mg/dL in a nonstressed, ambulatory subject supports the diagnosis of Diabetes Mellitus. ADA recommended reference range Performed By: #### D VENITA, JOSSE T4, [id number], SEROTON, TEST F + T, T3R, THYGLOB AB, ESTRADIOL, TPO, SHBG, ESTRONE, INSULIN, PROG #### [facility] , #### T4F, TRISTEN, TSH3, A1C WTH eA, FILIBERTO, GLU, T3F #### [address] Glucose mean value [Mass/vol ume] in Blood Estimated from glycated hemoglobinOrdered By: Deisy Villar on 01-07-2024 Average glucose Estimated from glycated hemoglobin (Bld) [Mass/Vol] 105 mg/dL [facility] Hemoglobin A1c percentageOrd ered By: Deisy Villar on 01-07-2024 HbA1c (Bld) [Mass fraction] 5.3 % Normal 4.3-5.6 [facility] Comment on above: Increased risk for d iabetes: 5.7 - 6.4diabetes: >6.4glycemic control for adults with diabetes: <7.0 Result Comment: Incr eased risk for diabetes: 5.7 - 6.4 diabetes: >6.4 glycemic control for adults with diabetes: <7.0 Performed By: #### D DANIELLEAS, LC T4, [id number], SEROTON, TEST F + T, T3R, THYGLOB AB, ESTRADIOL, TPO, SHBG, ESTRONE, INSULIN, PROG #### [facility] , #### T4F, TRISTEN, TSH3, A1C WTH eA, FILIBERTO, GLU, T3F #### [facility] [address] Insulinon 01-07-2024 Insulin 4.5 u[iU]/mL Normal 2.6-24.9 [facility] Comment on above: Result Comment: Perf ormed at: [facility] [address] [id number] Dynamite Shooter: Baudilio Leyva PhD, Phone: [phone] Performed By: #### D HEAS, LC T4, [id number], SEROTON, TEST F + T, T3R, THYGLOB AB, ESTRADIOL, TPO, SHBG, ESTRONE, INSULIN, PROG #### [facility] , #### T4F, TRISTEN, TSH3, A1C WTH eA, FILIBERTO, GLU, T3F #### [address] [facility] Thyroxine (T4)on T4 [Mass/Vol] 8.2 ug/dL Normal 4.5-12.0 [facility] Comment on above: Performed By: #### D HEAS, LC T4, [id number], SEROTON, TEST F + T, T3R, THYGLOB AB, ESTRADIOL, TPO, SHBG, ESTRONE, INSULIN, PROG #### [facility] , #### T4F, TRISTEN, TSH3, A1C WTH eA, FILIBERTO, GLU, T3F #### [address] No Panel InformationOrdered By: Deisy Villar on 01-07-2024 Free Thyroxine (T4) Direct 8.2 ug/dL 4.5-12.0 [facility] Reverse Triiodothyronine (T3) 18.9 ng/dL 9.2-24.1 [facility] Comment on above: This test was develo ped and its performance characteristicsdetermined by [facility]. It has not been cleared orapproved by the Food and Drug Administration.Performed at: [address] [id number] Director: Quinton Wolf MD, Phone: [phone] Sex Hormone Binding Globulin 95.4 nmol/L 24.6-122.0 [facility] Comment on above: Performed at: [address] [id number] Director: Baudilio Leyva PhD, Phone: [phone] Plasma serotonin measurement (mass/volume)Ordered By: Deisy Villar on 01-07-2024 Serotonin (P) [Mass/Vol] 71 ng/mL [facility] Comment on above: This test was develo ped and its performance characteristicsdetermined by [employer]. It has not been cleared orapproved by the Food and Drug Administration.Performed at: [address] [id number] Director: Quinton Wolf MD, Phone: [phone] Progesteroneon 01-07-2024 Progesterone 0.2 ng/mL Normal . [facility] Comment on above: Result Comment: Foll icular phase 0.1 - 0.9 Luteal phase 1.8 - 23.9 Ovulation phase 0.1 - 12.0 First trimester 11.0 - 44.3 Second trimester 25.4 - 83.3 Third trimester 58.7 - 214.0 Postmenopausal 0.0 - 0.1 Performed By: #### D HEAS, LC T4, [id number], SEROTON, TEST F + T, T3R, THYGLOB AB, ESTRADIOL, TPO, SHBG, ESTRONE, INSULIN, PROG #### [facility] , #### T4F, TRISTEN, TSH3, A1C WTH eA, FILIBERTO, GLU, T3F #### [facility] [address] Random cortisol measurementO rdered By: Deisy Villar on 01-07-2024 Cortisol [Mass/Vol] 6.8 ug/dL [facility] Comment on above: [facility] scenario writer and method:HELGA UNICEL DXI, POLYCLONAL ANTIBODY CORTISOL ASSAY.Reference range: AM 6 - 24 ug/dl PM <10 ug/dl Serotonin, Serumon Serotonin, Serum 71 ng/mL Normal [facility] Comment on above: Result Comment: This test was developed and its performance characteristics determined by [facility]. It has not been cleared or approved by the Food and Drug Administration. Performed at: - [facility] [id number] Dynamite Shooter: Quinton Wolf MD, Phone: [phone] PERFORMED BY: [place] [address] PATHOLOGIST QUALITY TESTER JOSE GOEL M.D. Performed By: #### D HEAS, LC T4, [id number], SEROTON, TEST F + T, T3R, THYGLOB AB, ESTRADIOL, TPO, SHBG, ESTRONE, INSULIN, PROG #### [facility] , #### T4F, TRISTEN, TSH3, A1C WTH eA, FILBIERTO, GLU, T3F #### [address] Serum estrone measurementOrd ered By: Deisy Villar on 01-07-2024 E1 [Mass/Vol] 46 pg/mL 27-231 [facility] Comment on above: Range Adult (Premeno pausal) 27 - 231 Menstrual Cycle (1-10 days) 19 - 149 Menstrual Cycle (11-20 days) 32 - 176 Menstrual Cycle (21-30 days) 37 - 200Performed at: - [facility] [address] [id number] Director: Quinton Wolf MD, Phone: [phone] Serum or plasma calcitriol m easurement (mass/volume)Ordered By: Deisy Villar on 01-07-2024 1,25-dihydroxyvitamin D3 [Mass/Vol] 56.6 pg/mL 24.8-81.5 [facility] Comment on above: Performed at: - [facility] [address] [id number] Director: Quinton Wolf MD, Phone: [phone] Serum or plasma estradiol (E 2) measurement (mass/volume)Ordered By: Deisy Villar on 01-07-2024 E2 [Mass/Vol] 300.0 pg/mL . [facility] Comment on above: Adult Female Range F ollicular phase 12.5 - 166.0 Ovulation phase 85.8 - 498.0 Luteal phase 43.8 - 211.0 Postmenopausal <6.0 - 54.7 1st trimester 215.0 - >4300.0Roche ECLIA methodology Serum or plasma insulin kevin urement (units/volume)Ordered By: Deisy Villar on 01-07-2024 Insulin Qn 4.5 u[iU]/mL 2.6-24.9 [facility] Comment on above: Performed at: [employer] [address] [place] [id number] Director: Baudilio Leyva PhD, Phone: [phone] Serum or plasma progesterone measurement (mass/volume)Ordered By: Deisy Villar on 01-07-2024 Progesterone [Mass/Vol] 0.2 ng/mL . [facility] Comment on above: Follicular phase 0.1 - 0.9 Luteal phase 1.8 - 23.9 Ovulation phase 0.1 - 12.0 First trimester 11.0 - 44.3 Second trimester 25.4 - 83.3 Third trimester 58.7 - 214.0 Postmenopausal 0.0 - 0.1 Serum or plasma thyroglobuli n antibody assay (units/volume)Ordered By: Deisy Villar on 01-07-2024 Thyroglobulin Ab Qn [IU]/mL 0.0-0.9 [facility] Comment on above: Thyroglobulin Antibo dy measured by Helga scanRMethodologyPerformed at: W[facility] [place] [id number] Director: Baudilio Leyva PhD, Phone: [phone] Serum or plasma thyroperoxid ase antibody assay (units/volume)Ordered By: Deisy Villar on 01-07-2024 TPO Ab Qn [IU]/mL 0-34 [facility] Comment on above: Performed at: [employer] [address] [place] [id number] Director: Baudilio Leyva PhD, Phone: [phone] Sex Hormone Binding Globulin on 01-07-2024 Sex Hormone Binding Globulin 95.4 Normal 24.6-122.0 [facility] Comment on above: Result Comment: Perf ormed at: [address] [id number] Dynamite Shooter: Baudilio Leyva PhD, Phone: [phone] Performed By: #### D HESUE, LC T4, [id number], SEROTON, TEST F + T, T3R, THYGLOB AB, ESTRADIOL, TPO, SHBG, ESTRONE, INSULIN, PROG #### [facility] , #### T4F, TRISTEN, TSH3, A1C WTH eA, FILIBERTO, GLU, T3F #### [facility] [address] Testosterone Free and TotalO rdered By: Deisy Villar on 01-07-2024 Testosterone [Mass/Vol] 16 ng/dL Normal 8-60 [facility] Comment on above: Performed By: #### D VENITA, LC T4, [id number], SEROTON, TEST F + T, T3R, THYGLOB AB, ESTRADIOL, TPO, SHBG, ESTRONE, INSULIN, PROG #### [facility] , #### T4F, TRISTEN, TSH3, A1C WTH eA, FILIBERTO, GLU, T3F #### [facility] [address] Testosterone Free and Totalo n 01-07-2024 Testosterone,Free 0.3 pg/mL Normal 0.0-4.2 [facility] Comment on above: Result Comment: Perf ormed at: [address] [id number] Dynamite Shooter: Baudilio Leyva PhD, Phone: [phone] Performed at: [address] [id number] Dynamite Shooter: Quinton Wolf MD, Phone: [phone] Performed By: #### D HEAS, LC T4, [id number], SEROTON, TEST F + T, T3R, THYGLOB AB, ESTRADIOL, TPO, SHBG, ESTRONE, INSULIN, PROG #### [facility] , #### T4F, TRISTEN, TSH3, A1C WTH eA, FILIBERTO, GLU, T3F #### [address] Thyroid Peroxidase Antibodie son 01-07-2024 Thyroid Peroxidase Antibodies <9 Normal 0-34 [facility] Comment on above: Result Comment: Perf ormed at: [facility] [id number] Dynamite Shooter: Baudilio Leyva PhD, Phone: [phone] Performed By: #### D HEAS, LC T4, [id number], SEROTON, TEST F + T, T3R, THYGLOB AB, ESTRADIOL, TPO, SHBG, ESTRONE, INSULIN, PROG #### [facility] , #### T4F, TRISTEN, TSH3, A1C WTH eA, FILIBERTO, GLU, T3F #### [address] Thyrotropin [Units/volume] i n Serum or PlasmaOrdered By: Deisy Villar on 01-07-2024 TSH Qn 1.80 m[IU]/L Normal 0.45-5.33 [facility] Comment on above: Performed By: #### D HEAS, LC T4, [id number], SEROTON, TEST F + T, T3R, THYGLOB AB, ESTRADIOL, TPO, SHBG, ESTRONE, INSULIN, PROG #### [facility] , #### T4F, TRISTEN, TSH3, A1C WTH eA, FILIBERTO, GLU, T3F #### [facility] [address] [place] [address] Thyroxine (T4) free [Mass/vo lume] in Serum or PlasmaOrdered By: Deisy Villar on 01-07-2024 Free T4 [Mass/Vol] 0.88 ng/dL Normal 0.61-1.12 [facility] Comment on above: Performed By: #### D HEAS, LC T4, [id number], SEROTON, TEST F + T, T3R, THYGLOB AB, ESTRADIOL, TPO, SHBG, ESTRONE, INSULIN, PROG #### [facility] , #### T4F, TRISTEN, TSH3, A1C WTH eA, FILIBERTO, GLU, T3F #### [facility] [address] [place] [id number] [place] Triiodothyronine (T3) Freeon 01-07-2024 Triiodothyronine (T3) Free 3.90 pg/mL Normal 2.50-3.90 [facility] Comment on above: Result Comment: PERF ORMED BY: [place] [address] PATHOLOGIST QUALITY TESTER JOSE GOEL M.D. Performed By: #### D DANIELLEAS, LC T4, [id number], SEROTON, TEST F + T, T3R, THYGLOB AB, ESTRADIOL, TPO, SHBG, ESTRONE, INSULIN, PROG #### [facility] , #### T4F, TRISTEN, TSH3, A1C WTH eA, FILIBERTO, GLU, T3F #### [address] Triiodothyronine (T3) Free [ Mass/volume] in Serum or PlasmaOrdered By: Deisy Villar on 01-07-2024 Free T3 [Mass/Vol] 3.90 pg/mL 2.50-3.90 [facility] Triiodothyronine (T3) Revers lonnie 01-07-2024 Triiodothyronine (T3) Reverse 18.9 ng/dL Normal 9.2-24.1 [facility] Comment on above: Result Comment: This test was developed and its performance characteristics determined by [facility]. It has not been cleared or approved by the Food and Drug Administration. Performed at: [address] [id number] [employer]: Quinton Wolf MD, Phone: [phone] Performed By: #### D HEAS, LC T4, [id number], SEROTON, TEST F + T, T3R, THYGLOB AB, ESTRADIOL, TPO, SHBG, ESTRONE, INSULIN, PROG #### [facility] , #### T4F, TRISTEN, TSH3, A1C WTH eA, FILIBERTO, GLU, T3F #### [facility] [address] [id number] [facility] Alanine aminotransferase [En zymatic activity/volume] in Serum or PlasmaOrdered By: Delano Francis on 09-17-2023 ALT [Catalytic activity/Vol] 20 U/L 7-52 [facility] Albumin [Mass/volume] in Ser um or Plasma by Bromocresol green (BCG) dye binding methoOrdered By: Delano Francis on 09-17-2023 Albumin BCG dye [Mass/Vol] 4.3 g/dL 3.5-5.7 [facility] Alkaline phosphatase [Enzyma tic activity/volume] in Serum or PlasmaOrdered By: Delano Francis on 09-17-2023 ALP [Catalytic activity/Vol] 62 U/L 34-104 [facility] Aspartate aminotransferase [ Enzymatic activity/volume] in Serum or PlasmaOrdered By: Delano Francis on 09-17-2023 AST [Catalytic activity/Vol] 22 U/L 13-39 [facility] Basophils Auto (Bld) [#/Vol] Ordered By: Delano Francis on 09-17-2023 Basophils (Bld) [#/Vol] 0.0 10*3/uL 0.0-0.2 [facility] Basophils/100 WBC Auto (Bld) Ordered By: Delano Francis on 09-17-2023 Basophils/100 WBC (Bld) 0.4 % . [facility] Bilirubin.total [Mass/volume ] in Serum or PlasmaOrdered By: Delano Francis on 09-17-2023 Bilirubin [Mass/Vol] 0.7 mg/dL 0.3-1.0 [facility] Calcium [Mass/volume] in Ser um or PlasmaOrdered By: Delano Francis on 09-17-2023 Calcium [Mass/Vol] 9.4 mg/dL 8.6-10.3 [facility] Carbon dioxide, total [Moles /volume] in Serum or PlasmaOrdered By: Delano Francis on 09-17-2023 CO2 [Moles/Vol] 26.2 mmol/L 21.0-31.0 [facility] Chloride [Moles/volume] in S stevo or PlasmaOrdered By: Delano Francis on 09-17-2023 Chloride [Moles/Vol] 102 mmol/L 98-107 [facility] Cholesterol [Mass/volume] in Serum or PlasmaOrdered By: Delano Francis on 09-17-2023 Cholesterol [Mass/Vol] 214 mg/dL 140-200 [facility] Comment on above: Chol less than 200 m g/dl low riskChol 201-239 mg/dl borderline riskChol 240 mg/dl and greater high risk Cholesterol in LDL Calc [Mas s/Vol]Ordered By: Delano Francis on 09-17-2023 Cholesterol in LDL [Mass/Vol] 161 mg/dL 0-100 [facility] Comment on above: LDL ATP III CLASSIFI CATIONLDL less than 100 mg/dL OptimalLDL 100-129 mg/dL Near or above optimalLDL 130-159 mg/dL Borderline highLDL 160-189 mg/dL HighLDL greater than 189 mg/dL Very high Cholesterol in VLDL Calc [Ma ss/Vol]Ordered By: Delano Francis on 09-17-2023 Cholesterol in VLDL [Mass/Vol] 9 mg/dL [facility] Creatinine [Mass/volume] in Serum or PlasmaOrdered By: Delano Francis on 09-17-2023 Creatinine [Mass/Vol] 0.79 mg/dL 0.60-1.20 [facility] Eosinophils Auto (Bld) [#/Vo l]Ordered By: Delano Francis on 09-17-2023 Eosinophils (Bld) [#/Vol] 0.1 10*3/uL 0.0-0.45 [facility] Eosinophils/100 WBC Auto (Bl d)Ordered By: Delano Francis on 09-17-2023 Eosinophils/100 WBC (Bld) 0.9 % . [facility] Erythrocyte distribution wid th Auto (RBC) [Ratio]Ordered By: Delano Francis on 09-17-2023 Erythrocyte distribution width (RBC) [Ratio] 12.4 % 11.9-15.3 [facility] Globulin Calc (S) [Mass/Vol] Ordered By: Delano Francis on 09-17-2023 Globulin (S) [Mass/Vol] 2.5 g/dL [facility] Glucose [Mass/volume] in Ser um or PlasmaOrdered By: Delano Francis on 09-17-2023 Glucose [Mass/Vol] 75 mg/dL 70-100 [facility] Hematocrit Auto (Bld) [Volum e fraction]Ordered By: Delano Francis on 09-17-2023 Hematocrit (Bld) [Volume fraction] 34.2 % 34.0-46.4 [facility] Hemoglobin [Mass/volume] in BloodOrdered By: Delano Francis on 09-17-2023 Hemoglobin (Bld) [Mass/Vol] 11.8 g/dL 11.8-15.4 [facility] Leukocytes [#/volume] correc calvin for nucleated erythrocytes in Blood by Automated counOrdered By: Delano Francis on 09-17-2023 WBC corrected for nucl RBC Auto (Bld) [#/Vol] 5.9 10*3/uL 3.8-11.6 [facility] Lymphocytes Auto (Bld) [#/Vo l]Ordered By: Delano Francis on 09-17-2023 Lymphocytes (Bld) [#/Vol] 1.8 10*3/uL 1.00-4.8 [facility] Lymphocytes/100 WBC Auto (Bl d)Ordered By: Delano Francis on 09-17-2023 Lymphocytes/100 WBC (Bld) 30.5 % . [facility] MCH Auto (RBC) [Entitic mass ]Ordered By: Delano Francis on 09-17-2023 MCH (RBC) [Entitic mass] 31.8 pg 24.7-34.3 [facility] MCHC Auto (RBC) [Mass/Vol]Or dered By: Delano Francis on 09-17-2023 MCHC (RBC) [Mass/Vol] 34.4 g/dL 32.0-35.0 [facility] MCV Auto (RBC) [Entitic vol] Ordered By: Delano Francis on 09-17-2023 MCV (RBC) [Entitic vol] 92.5 fL 80-100 [facility] Monocytes Auto (Bld) [#/Vol] Ordered By: Delano Francis on 09-17-2023 Monocytes (Bld) [#/Vol] 0.5 10*3/uL 0.0-0.8 [facility] Monocytes/100 WBC Auto (Bld) Ordered By: Delano Francis on 09-17-2023 Monocytes/100 WBC (Bld) 9.2 % . [facility] Neutrophils Auto (Bld) [#/Vo l]Ordered By: Delano Francis on 09-17-2023 Neutrophils (Bld) [#/Vol] 3.5 10*3/uL 1.8-7.7 [facility] Neutrophils/100 WBC Auto (Bl d)Ordered By: Delano Francis on 09-17-2023 Neutrophils/100 WBC (Bld) 59.0 % . [facility] No Panel InformationOrdered By: Delano Francis on 09-17-2023 Estimated GFR (CKD-EPI) > 60.0 mL/Min [facility] Creatinine Clearance (Chem N/A [facility] Nucleated erythrocytes [Pres ence] in Blood by Automated countOrdered By: Delano Francis on 09-17-2023 Nucleated RBC Auto Ql (Bld) 0.2 /100{WBC} 0-0.5 [facility] Platelet mean volume Auto (B ld) [Entitic vol]Ordered By: Delano Francis on 09-17-2023 Platelet mean volume (Bld) [Entitic vol] 8.1 fL 6.3-10.7 [facility] Platelets Auto (Bld) [#/Vol] Ordered By: Delano Francis on 09-17-2023 Platelets (Bld) [#/Vol] 250 10*3/uL 150-450 [facility] Potassium [Moles/volume] in Serum or PlasmaOrdered By: Delano Francis on 09-17-2023 Potassium [Moles/Vol] 4.0 mmol/L 3.5-5.1 [facility] Protein [Mass/volume] in Ser um or PlasmaOrdered By: Delano Francis on 09-17-2023 Protein [Mass/Vol] 6.8 g/dL 6.4-8.9 [facility] RBC Auto (Bld) [#/Vol]Ordere d By: Delano Francis on 09-17-2023 RBC (Bld) [#/Vol] 3.70 10*6/uL 3.60-5.00 [facility] Serum or plasma albumin/glob ulin mass ratioOrdered By: Delano Francis on 09-17-2023 Albumin/Globulin [Mass ratio] 1.7 {ratio} [facility] Serum or plasma anion gap de terminationOrdered By: Delano Francis on 09-17-2023 Anion gap [Moles/Vol] 10.8 mmol/L 6.0-15.0 [facility] Serum or plasma high density lipoprotein (HDL) cholesterol measurementOrdered By: Delano Francis on 09-17-2023 Cholesterol in HDL [Mass/Vol] 43 mg/dL 23-92 [facility] Comment on above: HDL CHOL ATP-III CLA SSIFICATION Cardiovascular RiskHDL > or equal to 60 mg/dL LOWHDL < 40 mg/dL HIGH Serum or plasma total choles terol/high density lipoprotein (HDL) cholesterol mass ratOrdered By: Delano Francis on 09-17-2023 Cholesterol.total/Alivia sterol in HDL [Mass ratio] 5.0 {ratio} <5.0 [facility] Sodium [Moles/volume] in Ser um or PlasmaOrdered By: Delano Francis on 09-17-2023 Sodium [Moles/Vol] 135 mmol/L 136-145 [facility] Thyrotropin [Units/volume] i n Serum or PlasmaOrdered By: Delano Francis on 09-17-2023 TSH Qn 1.04 m[IU]/L 0.45-5.33 [facility] Triglyceride [Mass/volume] i n Serum or PlasmaOrdered By: Delano Francis on 09-17-2023 Triglyceride [Mass/Vol] 48 mg/dL 0-149 [facility] Comment on above: TRIG ATP III CLASSIF ICATIONTRIG less than 150 mg/dL NormalTRIG 150-199 mg/dL Borderline highTRIG 200-500 mg/dL High TRIG greater than 500 mg/dL Very highStandard traceable to the Center for Disease Conrtrol and Prevention (CDC) test method. Urea nitrogen [Mass/volume] in Serum or PlasmaOrdered By: Delano Francis on 09-17-2023 Urea nitrogen [Mass/Vol] 7 mg/dL 7- [facility] WBC Auto (Bld) [#/Vol]Ordere d By: Delano Francis on 09-17-2023 WBC (Bld) [#/Vol] 5.9 10*3/uL 3.8-11.6 [facility] Mononucleosis Test, [place] 1 Heterophile Ab LA Ql (S) Negative [employer] Other Quick Strepon 09-26-2022 S. pyogenes Org specific cx Ql (Throat) Negative [employer] Other Quick Strep [employer] Other SARS-CoV-2 (COVID-19) RNA NA A+probe Ql (Resp)on 09-26-2022 SARS-CoV-2 (COVID-19) RNA ROB+probe Ql (Unsp spec) Negative [employer] Other PAP ACOG PANEL 2: 30 to 65on 09-01-2022 . . Normal [facility] Comment on above: Result Comment: Perf ormed at: WB Performed By: #### [id number] #### [facility] [address] [address] [address] Zonia Zhang Age Gdln ACOG Testing 30- Normal [facility] Comment on above: Performed By: #### [id number] #### [facility] [address] [address] [address] Zonia Zhang DIAGNOSIS: Comment Normal [facility] Comment on above: Result Comment: NEGA TIVE FOR INTRAEPITHELIAL LESION OR MALIGNANCY. Performed at: WB Performed By: #### [id number] #### [facility] [address] [address] [address] Zonia Zhang HPV Aptima Negative Normal Negative [facility] Comment on above: Result Comment: This nucleic acid amplification test detects fourteen high-risk HPV types (16,18,31,33,35,39,45,51,52,56,58,59,66,68) without differentiation. Performed at: =G Performed By: #### [id number] #### [facility] [address] [place] [address] Dr. Zonia Zhang Methodology: Comment Normal [facility] Comment on above: Result Comment: This liquid based ThinPrep(R) pap test was screened with the use of an image guided system. Performed at: WB Performed By: #### [id number] #### [facility] [address] [place] [address] Dr. Zonia Zhang Note: Comment Normal [facility] Comment on above: Result Comment: The Pap smear is a screening test designed to aid in the detection of premalignant and malignant conditions of the uterine cervix. It is not a diagnostic procedure and should not be used as the sole means of detecting cervical cancer. Both false-positive and false-negative reports do occur. . Performed at: WB Performed By: #### [id number] #### [facility] [address] [place] [address] Dr. Zonia Zhang Performed by: Comment Normal [facility] Comment on above: Result Comment: Negin Tomas, [employer] Fe[employer] (ASCP) Performed at: WB Performed By: #### [id number] #### [facility] [address] [place] [address] Dr. Zonia Zhang Specimen adequacy: Comment Normal [facility] Comment on above: Result Comment: Sati sfactory for evaluation. Endocervical and/or squamous metaplastic cells (endocervical component) are present. Performed at: WB Performed By: #### [id number] #### [facility] [address] [place] [address] Dr. Zonia Zhang Basophils Auto (Bld) [#/Vol] Ordered By: Delano Francis on 08-07-2022 Basophils (Bld) [#/Vol] 0.0 10*3/uL 0.0-0.2 [facility] Basophils/100 WBC Auto (Bld) Ordered By: Delano Francis on 08-07-2022 Basophils/100 WBC (Bld) 0.5 % . [facility] Blood hemoglobin measurement (mass/volume)Ordered By: Delano Francis on 08-07-2022 Hemoglobin (Bld) [Mass/Vol] 12.7 g/dL 11.8-15.4 [facility] Blood leukocytes automated c ount (number/volume)Ordered By: Delano Francis on 08-07-2022 WBC (Bld) [#/Vol] 5.0 10*3/uL 4.5-11.0 [facility] Body fluid albumin measureme nt (mass/volume)Ordered By: Delano Francis on 08-07-2022 Albumin (Body fld) [Mass/Vol] 4.1 g/dL 3.2-5.5 [facility] Cholesterol [Mass/volume] in Serum or PlasmaOrdered By: Delano Francis on 08-07-2022 Cholesterol [Mass/Vol] 253 mg/dL 140-200 [facility] Comment on above: Chol less than 200 m g/dl low risk Chol 201-239 mg/dl borderline risk Chol 240 mg/dl and greater high risk Chol less than 200 m g/dl low riskChol 201-239 mg/dl borderline riskChol 240 mg/dl and greater high risk Cholesterol in LDL Calc [Mas s/Vol]Ordered By: Delano Francis on 08-07-2022 Cholesterol in LDL [Mass/Vol] 181 mg/dL 0-100 [facility] Comment on above: LDL ATP [...] 08-07-2022 Cholesterol in VLDL [Mass/Vol] 12 mg/dL [facility] Creatinine and Glomerular fi ltration rate.predicted panel (S/P/Bld)Ordered By: Delano Francis on 08-07-2022 Creatinine [Mass/Vol] 0.76 mg/dL 0.44-1.03 [facility] Eosinophils Auto (Bld) [#/Vo l]Ordered By: Delano Francis on 08-07-2022 Eosinophils (Bld) [#/Vol] 0.1 10*3/uL 0.0-0.45 [facility] Eosinophils/100 WBC Auto (Bl d)Ordered By: Delano Francis on 08-07-2022 Eosinophils/100 WBC (Bld) 1.6 % . [facility] Erythrocyte distribution wid th Auto (RBC) [Ratio]Ordered By: Delano Francis on 08-07-2022 Erythrocyte distribution width (RBC) [Ratio] 12.6 % 11.9-15.3 [facility] Estimated glomerular filtrat ion rate (GFR) non- AmericanOrdered By: Delano Francis on 08-07-2022 GFR/1.73 sq M.predicted among non-blacks MDRD (S/P/Bld) [Vol rate/Area] > 60 mL/Min [facility] Globulin Calc (S) [Mass/Vol] Ordered By: Delano Francis on 08-07-2022 Globulin (S) [Mass/Vol] 2.3 g/dL [facility] Hematocrit Auto (Bld) [Volum e fraction]Ordered By: Delano Francis on 08-07-2022 Hematocrit (Bld) [Volume fraction] 37.5 % 34.0-46.4 [facility] Laboratory - Chemistry and C hemistry - challengeOrdered By: Delano Francis on 08-07-2022 Glucose [Mass/Vol] 88 mg/dL 70-100 [facility] - Hematology and Cell countsOrdered By: Delano Francis on 08-07-2022 Nucleated RBC/100 WBC (Bld) [Ratio] 0.1 % 0-0.5 [facility] Lymphocytes Auto (Bld) [#/Vo l]Ordered By: Delano Francis on 08-07-2022 Lymphocytes (Bld) [#/Vol] 1.4 10*3/uL 1.00-4.8 [facility] Lymphocytes/100 WBC Auto (Bl d)Ordered By: Delano Francis on 08-07-2022 Lymphocytes/100 WBC (Bld) 28.1 % . [facility] MCH Auto (RBC) [Entitic mass ]Ordered By: Delano Francis on 08-07-2022 MCH (RBC) [Entitic mass] 31.8 pg 24.7-34.3 [facility] MCHC Auto (RBC) [Mass/Vol]Or dered By: Delano Francis on 08-07-2022 MCHC (RBC) [Mass/Vol] 33.8 g/dL 32.0-35.0 [facility] MCV Auto (RBC) [Entitic vol] Ordered By: Delano Francis on 08-07-2022 MCV (RBC) [Entitic vol] 94.3 fL 80-100 [facility] Monocyte %Ordered By: Delano Francis on 08-07-2022 Monocyte % 60 mg/dL 35-149 [facility] Comment on above: TRIG ATP [...] 08-07-2022 Monocytes (Bld) [#/Vol] 0.5 10*3/uL 0.0-0.8 [facility] Monocytes/100 WBC Auto (Bld) Ordered By: Delano Francis on 08-07-2022 Monocytes/100 WBC (Bld) 10.1 % . [facility] Neutrophils Auto (Bld) [#/Vo l]Ordered By: Delano Francis on 08-07-2022 Neutrophils (Bld) [#/Vol] 3.0 10*3/uL 1.8-7.7 [facility] Neutrophils/100 WBC Auto (Bl d)Ordered By: Delano Francis on 08-07-2022 Neutrophils/100 WBC (Bld) 59.7 % . [facility] No Panel InformationOrdered By: Delano Francis on 09-08-2022 Estimated GFR () > 60 mL/Min [facility] Comment on above: GFR estimated refere nce range: According to KDOQI guidelines, <60 ml/min/1.73m2 is sufficient to diagnose a patient with chronic kidney disease. Nicotine Metabolite Negative Cutoff=25 [facility] Comment on above: Performed at: BN - [facility] [address] [id number] Director: Quinton Wolf MD, Phone: [phone] Pharmacy Creatinine Clearance (Chem N/A [facility] Platelet mean volume Auto (B ld) [Entitic vol]Ordered By: Delano Francis on 08-07-2022 Platelet mean volume (Bld) [Entitic vol] 7.8 fL 6.3-10.7 [facility] Platelets Auto (Bld) [#/Vol] Ordered By: Delano Francis on 08-07-2022 Platelets (Bld) [#/Vol] 275 10*3/uL 150-450 [facility] Protein [Mass/volume] in Ser um or PlasmaOrdered By: Delano Francis on 08-07-2022 Protein [Mass/Vol] 6.4 g/dL 6.1-7.9 [facility] RBC Auto (Bld) [#/Vol]Ordere d By: Delano Francis on 08-07-2022 RBC (Bld) [#/Vol] 3.97 10*6/uL 3.60-5.00 [facility] Serum or plasma alanine troy otransferase measurement without P-5'-P (enzymatic activiOrdered By: Delano Francis on 08-07-2022 ALT No additional P-5'-P [Catalytic activity/Vol] 13 U/L 10-60 [facility] Serum or plasma albumin/glob ulin mass ratioOrdered By: Delano Francis on 08-07-2022 Albumin/Globulin [Mass ratio] 1.8 {ratio} [facility] Serum or plasma alkaline nova sphatase measurement (enzymatic activity/volume)Ordered By: Delano Francis on 08-07-2022 ALP [Catalytic activity/Vol] 52 U/L 32-92 [facility] Serum or plasma anion gap de terminationOrdered By: Delano Francis on 08-07-2022 Anion gap [Moles/Vol] 11.7 mmol/L 6.0-15.0 [facility] Serum or plasma aspartate am inotransferase measurement (enzymatic activity/volume)Ordered By: Delano Francis on 08-07-2022 AST [Catalytic activity/Vol] 15 U/L 10-42 [facility] Serum or plasma calcium kevin urement (mass/volume)Ordered By: Delano Francis on 08-07-2022 Calcium [Mass/Vol] 9.8 mg/dL 8.2-10.2 [facility] Serum or plasma chloride ra surement (moles/volume)Ordered By: Delano Francis on 08-07-2022 Chloride [Moles/Vol] 101 mmol/L 95-114 [facility] Serum or plasma high density lipoprotein (HDL) cholesterol measurementOrdered By: Delano Francis on 08-07-2022 Cholesterol in HDL [Mass/Vol] 60 mg/dL 35-85 [facility] Comment on above: HDL CHOL ATP-III CLA SSIFICATION Cardiovascular Risk HDL > or equal to 60 mg/dL LOW HDL < 40 mg/dL HIGH HDL CHOL ATP-III CLA SSIFICATION Cardiovascular RiskHDL > or equal to 60 mg/dL LOWHDL < 40 mg/dL HIGH Serum or plasma potassium me asurement (moles/volume)Ordered By: Delano Francis on 08-07-2022 Potassium [Moles/Vol] 4.4 mmol/L 3.5-5.1 [facility] Serum or plasma sodium measu rement (moles/volume)Ordered By: Delano Francis on 08-07-2022 Sodium [Moles/Vol] 136 mmol/L 136-146 [facility] Serum or plasma total biliru bin measurement (mass/volume)Ordered By: Delano Francis on 08-07-2022 Bilirubin [Mass/Vol] 1.0 mg/dL 0.3-1.2 [facility] Serum or plasma total carbon dioxide measurement (moles/volume)Ordered By: Delano Francis on 08-07-2022 CO2 [Moles/Vol] 27.7 mmol/L 22.0-30.0 [facility] Serum or plasma total choles terol/high density lipoprotein (HDL) cholesterol mass ratOrdered By: Delano Francis on 08-07-2022 Cholesterol.total/Alivia sterol in HDL [Mass ratio] 4.2 {ratio} <5.0 [facility] Serum or plasma urea nitroge n measurement (mass/volume)Ordered By: Delano Francis on 08-07-2022 Urea nitrogen [Mass/Vol] 9 mg/dL 9 [facility] TSH DL <= 0.005 mIU/L QnOrde red By: Delano Francis on 08-07-2022 TSH Qn 1.43 m[IU]/L 0.45-5.33 [facility] T3, TOTAL (TRIIODOTHYRONINE) on 06-07-2022 T3, TOTAL 88 ng/dL Normal 71-180 [facility] Comment on above: Performed By: #### T 3TOTAL #### [facility] [address] [place] [address] Dr. Zonia Zhang FREE T4on 06-06-2022 Free T4 [Mass/Vol] 0.94 ng/dL Normal 0.76-1.46 [facility] Comment on above: Performed By: #### F T4 #### [facility] [address] [place] [address] Dr. Zonia Zhang TSHon 06-06-2022 TSH 1.364 uIU/mL Normal 0.358-3.74 0 [facility] Comment on above: Performed By: #### T SH #### [facility] [address] [place] [address] Dr. Zonia Zhang COVID Quick Testingon 2021 Result Positive [employer] Other Quick Fluon 12-27-2021 FLUAV Ab CF (S) [Titer] Negative N [employer] Other FLUBV Ab CF (S) [Titer] Negative [facility] [employer] Other Vital Signs Date Time Vital Sign Value Performing Clinician Facility 06-12-2025 14:21-0400 Body mass index (BMI) [Ratio] 35.73 kg/m2 [facility] Sita DO Work Phone: [facility] 06-12-2025 14:21-0400 Body weight 103.47 kg Ángel Sita DO Work Phone: [facility] 06-12-2025 14:21-0400 Diastolic blood pressure 70 mm[Hg] Ángel Sita DO Work Phone: [facility] 06-12-2025 14:21-0400 Systolic blood pressure 120 mm[Hg] Ángel Sita DO Work Phone: [facility] 05-30-2025 09:10-0400 Body mass index (BMI) [Ratio] 35.52 kg/m2 Ángel Sita DO Work Phone: [facility] 05-30-2025 09:10-0400 Body weight 102.88 kg Ángel Sita DO Work Phone: [facility] 05-30-2025 09:10-0400 Diastolic blood pressure 78 mm[Hg] Ángel Sita DO Work Phone: [facility] 05-30-2025 09:10-0400 Systolic blood pressure 120 mm[Hg] Ángel Sita DO Work Phone: [facility] 05-01-2025 08:36-0400 Body mass index (BMI) [Ratio] 34.43 kg/m2 Deisy MUNOZ Work Phone: [facility] 05-01-2025 08:36-0400 Body weight 99.7 kg Deisy MUNOZ Work Phone: [facility] 05-01-2025 08:36-0400 Diastolic blood pressure 74 mm[Hg] Deisy MUNOZ Work Phone: [facility] 05-01-2025 08:36-0400 Systolic blood pressure 118 mm[Hg] Deisy MUNOZ Work Phone: [facility] 03-30-2025 10:28-0400 Body mass index (BMI) [Ratio] 32.89 kg/m2 Ángel Sita DO Work Phone: [facility] 03-30-2025 10:28-0400 Body weight 95.25 kg Ángel Sita DO Work Phone: [facility] 03-30-2025 10:28-0400 Diastolic blood pressure 84 mm[Hg] Ángel Sita DO Work Phone: [facility] 03-30-2025 10:28-0400 Systolic blood pressure 120 mm[Hg] Ángel Sita DO Work Phone: [facility] 03-02-2025 09:58-0400 Body mass index (BMI) [Ratio] 31.76 kg/m2 Deisy Villar PA Work Phone: [facility] 03-02-2025 09:58-0400 Body weight 91.99 kg Deisy Adithya PA Work Phone: [facility] 03-02-2025 09:58-0400 Diastolic blood pressure 72 mm[Hg] Deisy Adithya PA Work Phone: [facility] 03-02-2025 09:58-0400 Systolic blood pressure 120 mm[Hg] Deisy Adithya PA Work Phone: [facility] 02-02-2025 09:25-0500 Body mass index (BMI) [Ratio] 30.54 kg/m2 Ángel Sita DO Work Phone: [facility] 02-02-2025 09:25-0500 Body weight 88.45 kg Ángel Sita DO Work Phone: [facility] 02-02-2025 09:25-0500 Diastolic blood pressure 70 mm[Hg] Ángel Sita DO Work Phone: [facility] 02-02-2025 09:25-0500 Systolic blood pressure 120 mm[Hg] Ángel Sita DO Work Phone: [facility] 10-18-2024 11:19-0500 Body height 170.18 cm Robles Ball DO Work Phone: [facility] 10-18-2024 11:19-0500 Body mass index (BMI) [Ratio] 29.7 kg/m2 Robles Ball DO Work Phone: [facility] 10-18-2024 11:190500 Body weight 86.23 kg Robles Ball DO Work Phone: [facility] 10-18-2024 11:19-0500 Diastolic blood pressure 77 mm[Hg] Robles Ball DO Work Phone: [facility] 10-18-2024 11:19-0500 Heart rate 88 /min Robles Ball DO Work Phone: [facility] 10-18-2024 11:0500 Respiratory rate 12 /min Robles Ball DO Work Phone: [facility] 10-18-2024 11:19-0500 Systolic blood pressure 111 mm[Hg] Robles Ball DO Work Phone: [facility] 09-13-2024 14:28-0400 Body mass index (BMI) [Ratio] 28.79 kg/m2 Ángel Sita DO Work Phone: [facility] 09-13-2024 14:28-0400 Body weight 83.37 kg Ángel Sita DO Work Phone: [facility] 09-13-2024 14:28-0400 Diastolic blood pressure 70 mm[Hg] Ángel Sita DO Work Phone: [facility] 09-13-2024 14:28-0400 Systolic blood pressure 120 mm[Hg] Ángel Sita DO Work Phone: [facility] 05-03-2024 14:40-0400 Body height 170.18 cm [facility] 05-03-2024 14:40-0400 Body mass index (BMI) [Ratio] 28.3 kg/m2 [facility] 05-03-2024 14:40-0400 Body weight 82.1 kg [facility] 05-03-2024 14:40-0400 Diastolic blood pressure 82 mm[Hg] [facility] 05-03-2024 14:40-0400 Heart rate 78 /min [facility] 05-03-2024 14:40-0400 SaO2% (BldA) [Mass fraction] 98 % [facility] 05-03-2024 14:40-0400 Systolic blood pressure 122 mm[Hg] [facility] 01-06-2024 14:20-0500 Body height 170.2 cm Deisy Villar PA Work Phone: [facility] 01-06-2024 14:20-0500 Body mass index (BMI) [Ratio] 28.05 kg/m2 Deisy [place] PA Work Phone: [facility] 01-06-2024 14:20-0500 Body weight 81.25 kg Deisy Adithya PA Work Phone: [facility] 01-06-2024 14:20-0500 Diastolic blood pressure 70 mm[Hg] Deisy Adithya PA Work Phone: [facility] 01-06-2024 14:20-0500 Systolic blood pressure 120 mm[Hg] Deisy Adithya PA Work Phone: [facility] 10-02-2023 10:00-0400 Body height 170.18 cm Robles Ball Other [employer] [facility] Other 10-02-2023 10:00-0400 Body mass index (BMI) [Ratio] 29.38 kg/m2 Robles Ball Other [employer] Other 10-02-2023 10:00-0400 Body weight 85.1 kg Robles Ball Other [employer] Other 10-02-2023 10:00-0400 Diastolic blood pressure 83 mm[Hg] Robles Ball Other [employer] [facility] Other 10-02-2023 10:00-0400 Respiratory rate 12 /min Robles Ball Other [employer] Other 10-02-2023 10:00-0400 Systolic blood pressure 131 mm[Hg] Robles Ball Other [employer] Other 01-22-2023 10:30-0500 Body height 170.18 cm Robles Ball Other [employer] Other 01-22-2023 10:30-0500 Body mass index (BMI) [Ratio] 29.91 kg/m2 Robles Ball Other [employer] Other 01-22-2023 10:30-0500 Body weight 86.64 kg Robles Ball Other [employer] Other 01-22-2023 10:30-0500 Diastolic blood pressure 72 mm[Hg] Robles Ball Other [employer] Other 01-22-2023 10:30-0500 Respiratory rate 16 /min Robles Ball Other [employer] Other 01-22-2023 10:30-0500 Systolic blood pressure 122 mm[Hg] Robles Ball Other [employer] Other 09-26-2022 16:10-0400 Body height 170.18 cm Kiya Schaffer Other [employer] Other 09-26-2022 16:10-0400 Body mass index (BMI) [Ratio] 29.29 kg/m2 Kiya Schaffer Other [employer] Other 09-26-2022 16:10-0400 Body temperature 98.8 [degF] Kiya Schaffer Other [employer] Other 09-26-2022 16:10-0400 Body weight 84.82 kg Kiya Schaffer Other [employer] Other 09-26-2022 16:10-0400 Diastolic blood pressure 73 mm[Hg] Kiya Schaffer Other [employer] Other 09-26-2022 16:10-0400 Respiratory rate 18 /min Kiya Schaffer Other [employer] Other 09-26-2022 16:10-0400 SaO2% (BldA) [Mass fraction] 97 % Kiya Schaffer Other [employer] Other 09-26-2022 16:10-0400 Systolic blood pressure 125 mm[Hg] Kiya Schaffer Other [employer] Other 12-27-2021 10:15-0500 Body height 170.18 cm Elsi Leyla Other [employer] Other 12-27-2021 10:15-0500 Body mass index (BMI) [Ratio] 28.19 kg/m2 Elsi Leyla Other [employer] Other 12-27-2021 10:15-0500 Body temperature 100.3 [degF] Elsi Leyla Other [employer] Other 12-27-2021 10:15-0500 Body weight 81.65 kg Elsi Leyla Other [employer] Other 12-27-2021 10:15-0500 Respiratory rate 18 /min Elsi Leyla Other [employer] Other 12-27-2021 10:15-0500 SaO2% (BldA) [Mass fraction] 98 % Elsi Leyla Other [employer] Other Encounters Encounter Date Encounter Type Care Provider Facility Start: 06-12-2025 End: 06-12-2025 flow sheet Ángel Sita DO Work Phone: [facility] Comment on above: Excessive grow th affecting management of in third trimester, single or unspecified fetus (HHS-HCC) (Primary Dx); 31 weeks gestation of (HHS-HCC); Third trimester (HHS-HCC); History of miscarriage; Multigravida of advanced maternal age in third trimester (HHS-HCC) Start: 06-12-2025 End: 06-12-2025 ambulatory ÁNGEL SITA Not Available Start: 06-12-2025 End: 06-12-2025 Bamboo flowsheet Ángel Sita DO Work Phone: [facility] Start: 06-12-2025 End: 06-12-2025 Bamboo flowsheet Ángel Sita DO Work Phone: [facility] Start: 06-10-2025 End: 06-10-2025 Clinisync Result Encounter Ángel Sita DO Work Phone: [facility] Unsolicited Start: 06-10-2025 End: 06-10-2025 Clinisync Result Encounter Ángel Siat DO Work Phone: [facility] External Department Unsolicited Start: 06-03-2025 End: 06-03-2025 Clinisync Result Encounter Ángel Sita DO Work Phone: [facility] External Department Unsolicited Start: 06-03-2025 End: 06-03-2025 Clinisync Result Encounter Ángel Sita DO Work Phone: [facility] Unsolicited Start: 05-30-2025 End: 05-30-2025 Bamboo flowsheet Ángel Sita DO Work Phone: [facility] Start: 05-30-2025 End: 05-30-2025 Bamboo flowsheet Ángel Sita DO Work Phone: [facility] Start: 05-30-2025 End: 05-30-2025 flow sheet Ángel Sita DO Work Phone: [facility] Comment on above: Third trimester preg lai ([facility]); 29 weeks gestation of ([facility]); History of miscarriage; Multigravida of advanced maternal age in third trimester ([facility]) Start: 05-30-2025 End: 05-30-2025 ambulatory ÁNGEL SITA [...] OB Start: 03-30-2025 End: 03-30-2025 flow sheet Ángle Sita DO Work Phone: [facility] [...] Bamboo flowsheet Ángel Sita DO Work Phone: [facility] Start: 02-02-2025 End: 02-02-2025 Bamboo flowsheet Ángel Sita DO Work Phone: [facility] Start: 02-02-2025 End: 02-02-2025 flow sheet Ángel Sita DO Work Phone: [facility] Comment on above: 13 weeks [...] 10-18-2024 ambulatory Robles Charles DO Work Phone: [facility] Work Phone: Start: 10-18-2024 End: 10-18-2024 Encounter for general adult medical examination without abnormal findings Robles Charles DO Work Phone: [facility] Start: 10-18-2024 End: 10-18-2024 Patient encounter procedure Robles Charles DO Work Phone: [facility] Work Phone: Start: 10-16-2024 Patient encounter status Jermaine min Ball DO Work Phone: [facility] Start: 10-14-2024 Non-patient / Non-visit Benjam in Ball DO Work Phone: [facility] Work Phone: Start: 09-22-2024 End: 09-22-2024 Departed Referred DO Robles Charles Work Phone: [facility] Start: 09-22-2024 End: 09-22-2024 ambulatory DO Robles Charles Work Phone: [facility] Work Phone: Start: 09-13-2024 End: 09-13-2024 [...] preventive med est patient 18-39 yrs Ángel Lopezo DO Work Phone: [facility] Comment on above: Well woman exam with routine gynecological exam Start: 09-13-2024 End: 09-13-2024 ambulatory ÁNGEL BUCKNER Not Available Start: 08-29-2024 End: 08-29-2024 ambulatory [facility] Work Phone: Start: 08-29-2024 End: 08-29-2024 Patient encounter procedure [facility] Work Phone: Start: 05-03-2024 End: 05-03-2024 ambulatory [facility] Work Phone: Start: 05-03-2024 End: 05-03-2024 Patient encounter procedure [facility] Work Phone: Start: 2024 End: 2024 ambulatory DO Robles Ball Work Phone: [facility] Work Phone: Start: 2024 End: 2024 Patient encounter procedure DO Robles Ball Work Phone: [facility] Work Phone: Start: 01-07-2024 End: 01-07-2024 Patient encounter procedure DO Robles Ball Work Phone: [facility] [place] Work Phone: Start: 01-07-2024 End: 01-07-2024 ambulatory DO Robles Ball Work Phone: [facility] Work Phone: Start: 01-06-2024 End: 01-06-2024 Office outpatient visit 15 minutes Deisy MUNOZ Work Phone: [facility] Comment on above: Encounter for weight management; Hormone disorder; 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 Start: 10-02-2023 End: 10-02-2023 ambulatory Robles Charles Other [employer] Other Start: 10-02-2023 Encounter for genera l adult medical examination without abnormal findings Robles Charles [facility] Start: 10-02-2023 Periodic preventive med est patient 18-39 yrs Robles Charles [facility] Start: 09-17-2023 End: 09-17-2023 ambulatory MD Liz Conteh Work Phone: [facility] Work Phone: Start: 09-17-2023 End: 09-17-2023 Departed Referred MD Liz Conteh Work Phone: [facility]Employee Benefit Screening Start: 01-22-2023 End: 01-22-2023 ambulatory Robles Charles Other [employer] Other Start: 01-22-2023 Office outpatient vi sit 15 minutes Robles Charles [facility] Start: 01-12-2023 End: 01-12-2023 ambulatory Robles Charles Other [employer] Other Start: 01-12-2023 Telephone encounter Robles Charles [facility] Start: 12-24-2022 End: 12-24-2022 ambulatory Robles Charles Other [employer] Other Start: 12-24-2022 Office outpatient vi sit 15 minutes Robles Charles [facility] Start: 09-30-2022 End: 09-30-2022 ambulatory Kiya Schaffer Other [employer] Other Start: 09-30-2022 Telephone encounter Kiya Schaffer [facility] Start: 09-26-2022 End: 09-26-2022 Departed Referred MD Liz Conteh Work Phone: [facility] [place] Start: 09-26-2022 End: 09-26-2022 ambulatory MD Liz Conteh Work Phone: [facility] Work Phone: Start: 09-26-2022 Office outpatient vi sit 15 minutes Kiya Schaffer [facility] Start: 09-25-2022 ([facility] C Vac) [facility] Co vid Vaccine [facility] Start: 09-25-2022 End: 09-25-2022 ambulatory MD Liz Conteh Work Phone: [facility] Work Phone: Start: 09-25-2022 End: 09-25-2022 Patient encounter procedure MD Liz Conteh Work Phone: [facility]Covid Vaccine Off Site Start: 08-25-2022 End: 08-25-[address] ÁNGEL BUCKNER Facility:[facility] Start: 08-07-2022 End: 08-07-2022 Departed Referred MD Liz Conteh Work Phone: [facility]it Screening Start: 06-06-2022 End: 06-07-[address] ROBLES CHARLES Facility:[facility] Start: 01-01-2022 End: 01-01-2022 ambulatory Elsi Mayer Other [employer] Other Start: 01-01-2022 Office outpatient vi sit 5 minutes Elsi Mayer [facility] Start: 12-27-2021 End: 12-27-2021 ambulatory Elsi Mayer Other [employer] Other Start: 12-27-2021 Office outpatient vi sit 15 minutes Elsi Mayer [facility] Start: 08-23-2021 ([facility] C Vac) [facility] Co vid Vaccine Subha [facility] Procedures Date Procedure Procedure Detail Performing Clinician Start: 06-10-2025 US OB BPP W NON-STRESS Ángel Buckner DO Work Phone: Start: 06-03-2025 US OB BPP W NON-STRESS Ángel Sita DO Work Phone: Start: 05-30-2025 Urnls dip stick/tabl et rgnt non-auto w/o micrscp Ángel Sita DO Work Phone: Start: 05-11-2025 US OB GROWTH Edson fu [employer] Work Phone: Start: 04-18-2025 ALL CBC WITH [...] [Identifier] in Cervix by Cyto stain Deisy Villar PA Work Phone: Plan of Treatment Date Care Activity Detail Author Start: 09-13-2029 Screening for malignant neoplasm of cervix [facility] Start: 03-02-2028 Screening for malignant neoplasm of cervix Pap Smear [facility] Start: 09-19-2025 End: 09-19-2025 Patient encounter procedure 09/19/2025 8:30 AM EDT Office Visit [facility] [address] [facility] [place] [address] Ángel Buckner, DO [address] [place] [address] [facility] Start: 07-31-2025 Influenza vaccination [facility] Start: 07-10-2025 End: 07-10-2025 Patient encounter procedure 07/10/2025 1:50 PM EDT Routine [facility] [address] [place] [id number] Ángel Buckner, DO [address] [place] [address] [facility] Start: 06-26-2025 End: 06-26-2025 Patient encounter procedure 06/26/2025 1:10 PM EDT Routine [facility] [address] [place] [phone] Ángel Buckner, DO [address] [place], [place] [id number] [facility] Start: 06-26-2025 End: 06-26-2025 Professional / ancillary services management 06/26/2025 11:30 AM EDT Ancillary Procedure [facility] [address] [facility] [place] [address] [facility] Start: 06-19-2025 Screening for malignant neoplasm of cervix [facility] Start: 06-12-2025 End: 06-12-2025 Patient encounter procedure [facility] Comment on above: Arrived Start: 06-12-2025 End: 10-13-2025 US for US OB follow up transabdominal approach Imaging Routine Excessive growth affecting management of in third trimester, single or unspecified fetus ([facility]) Expected: 06/12/2025, Expires: 10/13/2025 [facility] Work Phone: Comment on above: Expected: 06/12/2025, Expires: Start: 05-30-2025 End: 11-30-2025 US biophysical profile w non stress test US biophysical profile w non stress test Imaging Routine History of miscarriage Multigravida of advanced maternal age in third trimester ([facility]) Expected: 05/30/2025 (Approximate), Expires: 11/30/2025 [facility] [employer] Work Phone: Comment on above: Expected: 05/30/2025 (Approximate), Expi res: 11/30/2025 Start: 05-30-2025 End: 05-30-2025 Patient encounter procedure [facility] Comment on above: Arrived Start: 05-01-2025 End: 08-31-2025 US for US OB follow up transabdominal approach Imaging Routine size inconsistent with dates Expected: 05/01/2025, Expires: 08/31/2025 [facility] Work Phone: Comment on above: Expected: 05/01/2025, Expires: Start: 05-01-2025 End: 05-01-2025 Patient encounter procedure [facility] Comment on above: Arrived Start: 04-18-2025 End: 04-18-2025 Professional / ancillary services management 04/18/2025 11:00 AM EDT Ancillary Procedure [facility] [address] [facility] [place] [address] [facility] Start: 04-03-2025 End: 04-03-2025 Patient encounter procedure 04/03/2025 9:50 AM EDT Routine [facility] [address] [facility] [place] [address] Ángel Buckner, DO [address], [place] [id number] [facility] Start: 04-03-2025 End: 04-03-2025 Professional / ancillary services management 04/03/2025 8:00 AM EDT Ancillary Procedure [facility] [address] [facility] [place] [address] [facility] Start: 03-30-2025 End: 03-30-2026 CBC panel - Blood by Automated count CBC Lab Routine Second trimester Diabetes mellitus screening Expected: 03/30/2025 (Approximate), Expires: 03/30/2026 [facility] Work Phone: Comment on above: Expected: 03/30/2025 (Approximate), Expi res: 03/30/2026 Start: 03-30-2025 End: 03-30-2026 Measurement of glucose 1 hour after glucose challenge for glucose tolerance test Glucose tolerance, 1 hour Lab Routine Second trimester Diabetes mellitus screening Expected: 03/30/2025 (Approximate), Expires: 03/30/2026 [facility] Comment on above: Expected: 03/30/2025 (Approximate), Expi res: 03/30/2026 Start: 03-30-2025 End: 06-30-2025 US for US OB limited 1+ fetuses Imaging Routine Encounter for follow-up ultrasound of anatomy Expected: 03/30/2025, Expires: 06/30/2025 [facility] Comment on above: Expected: 03/30/2025, Expires: [...] AM EDT Routine [facility] [address] [facility] [place] [phone] Deisy Villar PA [address] [place] [address] Arrived [facility] Comment on above: Arrived Start: 02-02-2025 End: 02-02-2025 Patient encounter procedure [facility] Comment on above: Arrived Start: 01-05-2025 End: 01-05-2025 ambulatory 01/05/2025 1:30 PM EST Initial [facility] [address] [place] [address] [facility] Start: 01-05-2025 End: 01-05-2025 Professional / ancillary services management 01/05/2025 1:00 PM EST Ancillary Procedure [facility] [address] [place] [phone] [facility] Start: 09-13-2024 End: 09-13-2024 Patient encounter procedure [facility] Comment on above: Arrived Start: 07-31-2024 Influenza vaccination Influenza Vaccine (#1) [facility] Start: 02-03-2024 End: 02-03-2024 Patient encounter procedure 02/03/2024 1:50 PM EST Office Visit [facility] [address] [place] [phone] Deisy Villar PA [address] [place] [address] [facility] Start: 01-07-2024 Dehydroepiandrosterone sulfate level [facility] Start: 01-07-2024 Sex hormone binding globulin measurement [facility] Start: 01-07-2024 T3 reverse measurement [facility] Start: 01-07-2024 Thyroxine measurement [facility] Start: 01-07-2024 [facility] Start: 01-06-2024 End: 01-06-2025 Anti-thyroglobulin antibody Anti-thyroglobulin antibody Lab Routine Hormone disorder Expected: 01/06/2024 (Approximate), Expires: 01/06/2025 [facility] Comment on above: Expected: 01/06/2024 (Approximate), Expi res: 01/06/2025 Start: 01-06-2024 End: 01-06-2025 C-peptide C-peptide Lab Routine Hormone disorder Expected: 01/06/2024 (Approximate), Expires: 01/06/2025 [facility] Comment on above: Expected: 01/06/2024 (Approximate), Expi res: 01/06/2025 Start: 01-06-2024 End: 01-06-2025 Cortisol free Cortisol, free Lab Routine Hormone disorder Expected: 01/06/2024 (Approximate), Expires: 01/06/2025 [facility] Comment on above: Expected: 01/06/2024 (Approximate), Expi res: 01/06/2025 Start: 01-06-2024 End: 01-06-2025 Glucose [Mass/volume] in Serum or Plasma Glucose, random Lab Routine Hormone disorder Expected: 01/06/2024 (Approximate), Expires: 01/06/2025 [facility] Comment on above: Expected: 01/06/2024 (Approximate), Expi res: 01/06/2025 Start: 01-06-2024 End: 01-06-2025 Insulin, total Insulin, total Lab Routine Hormone disorder Expected: 01/06/2024 (Approximate), Expires: 01/06/2025 [facility] Comment on above: Expected: 01/06/2024 (Approximate), Expi res: 01/06/2025 Start: 01-06-2024 End: 01-06-2025 Serotonin serum Serotonin serum Lab Routine Hormone disorder Expected: 01/06/2024 (Approximate), Expires: 01/06/2025 [facility] Comment on above: Expected: 01/06/2024 (Approximate), Expi res: 01/06/2025 Start: 01-06-2024 End: 01-06-2025 Thyroglobulin Thyroglobulin Lab Routine Hormone disorder Expected: 01/06/2024 (Approximate), Expires: 01/06/2025 [facility] Comment on above: Expected: 01/06/2024 (Approximate), Expi res: 01/06/2025 Start: 01-06-2024 End: 01-06-2025 Thyrotropin [Units/volume] in Serum or Plasma [facility] Comment on above: Ordered: 01/06/2024 Expected: 01/06/2024 (Approximate), Expires: 01/06/2025 Start: 09-17-2023 [facility] Start: 08-07-2022 [facility] Work Phone: Calcitriol [Mass/vol ume] in Serum or Plasma [facility] CHLAMYDIA TRACHOMATI S (GENITO/STI) CHLAMYDIA TRACHOMATIS (GENITO/STI) Lab Routine Exposure to STD Ordered: 03/02/2025 [facility] Comment on above: Ordered: 03/02/2025 Cytology Cervical or vaginal smear or scraping study Pap Smear Pathology and Cytology Routine Well woman exam with routine gynecological exam Ordered: 09/13/2024 [facility] Work Phone: Comment on above: Ordered: 09/13/2024 Cytology Cervical or vaginal smear or scraping study Pap Smear Pathology and Cytology Routine Well woman exam with routine gynecological exam Ordered: 03/02/2025 [facility] Comment on above: Ordered: 03/02/2025 DHEA-sulfate DHEA-sulfate Lab Routine Hormone disorder Ordered: 01/06/2024 [facility] Comment on above: Ordered: 01/06/2024 Estradiol Estradiol Lab Ro utine Hormone disorder Ordered: 01/06/2024 [facility] Work Phone: Comment on above: Ordered: 01/06/2024 Estradiol (E2) [Mass /volume] in Serum or Plasma [facility] Estrone Estrone Lab Rout ine Hormone disorder Ordered: 01/06/2024 [facility] Comment on above: Ordered: 01/06/2024 Estrone (E1) [Mass/v olume] in Serum or Plasma [facility] Ferritin [Mass/volum e] in Serum or Plasma Ferritin Lab Routine Hormone disorder Ordered: 01/06/2024 [facility] Comment on above: Ordered: 01/06/2024 Hemoglobin A1c measurement Hemog lobin A1c Lab Routine Hormone disorder Ordered: 01/06/2024 [facility] Comment on above: Ordered: 01/06/2024 Human papilloma viru s DNA [Presence] in Unspecified specimen by Probe with amplification HPV DNA probe, amplified Microbiology Routine Well woman exam with routine gynecological exam Ordered: 09/13/2024 [facility] Comment on above: Ordered: 09/13/2024 Human papilloma viru s DNA [Presence] in Unspecified specimen by Probe with amplification HPV DNA probe, amplified Microbiology Routine Well woman exam with routine gynecological exam Ordered: 03/02/2025 [facility] Comment on above: Ordered: 03/02/2025 Insulin [Units/volum e] in Serum or Plasma [facility] Neisseria gonorrhoea e DNA [Presence] in Unspecified specimen by ROB with probe detection Neisseria gonorrhea DNA probe, direct Lab Routine Exposure to STD Ordered: 03/02/2025 [facility] Comment on above: Ordered: 03/02/2025 Progesterone Progesterone Lab Routine Hormone disorder Ordered: 01/06/2024 [facility] Comment on above: Ordered: 01/06/2024 Progesterone [Mass/v olume] in Serum or Plasma [facility] Serotonin [Mass/volu me] in Plasma [facility] Sex hormone binding globulin Sex hormone binding globulin Lab Routine Hormone disorder Ordered: 01/06/2024 [facility] Comment on above: Ordered: 01/06/2024 SURESWAB(R) ADVANCED VAGINITIS PLUS, TMA SURESWAB(R) ADVANCED VAGINITIS PLUS, TMA Pathology and Cytology Routine Vaginal discharge Ordered: 03/02/2025 [facility] Work Phone: Comment on above: Ordered: 03/02/2025 T3, reverse T3, reverse Lab Routine Hormone disorder Ordered: 01/06/2024 [facility] Comment on above: Ordered: 01/06/2024 Testosterone Free [Mass/volume] in Serum or Plasma [facility] TESTOSTERONE, FREE TESTOSTERONE, FREE Lab Routine Hormone disorder Ordered: 01/06/2024 [facility] Comment on above: Ordered: 01/06/2024 Testosterone, free, total Testos terone, free, total Lab Routine Hormone disorder Ordered: 01/06/2024 [facility] Comment on above: Ordered: 01/06/2024 Throat culture Throat Culture [facility] Thyroglobulin Ab [Units/volume] in Serum or Plasma [facility] Thyroid peroxidase antibody Thyr oid peroxidase antibody Lab Routine Hormone disorder Ordered: 01/06/2024 [facility] Comment on above: Ordered: 01/06/2024 Thyroperoxidase Ab [Units/volume] in Serum or Plasma [facility] Thyroxine (T4) free [Mass/volume] in Serum or Plasma T4, free Lab Routine Hormone disorder Ordered: 01/06/2024 [facility] Comment on above: Ordered: 01/06/2024 Triiodothyronine (T3 ) Free [Mass/volume] in Serum or Plasma T3, free Lab Routine Hormone disorder Ordered: 01/06/2024 [facility] Comment on above: Ordered: 01/06/2024 Vitamin D 1,25 dihydroxy Vitamin D 1,25 dihydroxy Lab Routine Hormone disorder Ordered: 01/06/2024 [facility] Comment on above: Ordered: 01/06/2024 [facility] Work Phone: Immunizations Immunization Date Immunization Notes Care Provider Naeem pablo 09-15-2023 influenza, injectabl e, quadrivalent, preservative free [facility] 09-15-2023 influenza virus vaccine, unspecified formulation Ángel Buckner DO Work Phone: [facility] 09-25-2022 COVID-19 Moderna (BIvalent) Kiya Schaffer Other [facility] 08-23-2021 COVID-19 Pfizer Subha Dillon Other [facility] 07-31-2021 COVID-19 Hai Dillon Other [facility] 05-19-2021 diphtheria, tetanus toxoids and pertussis vaccine [facility] Payers Date Payer Category Payer Self-pay [id number] 2022 Private Health Insurance [employer] [id number] 2022 Unknown [employer] [id number] 2022-Present [address] [place] [address] [id number] 1990 Unknown [id number] 2.16.840.1.128486.3.579.2 .593 1990 Unknown [id number] 2.16.840.1.112680.3.579.2 .593 1990 Unknown [id number] 2.16.840.1.082671.3.579.2 .1259 1990 Unknown [id number] 2.16.840.1.329631.3.579.2 .1259 1990 Unknown [id number] 2.16.840.1.526277.3.579.2 .1258 1990 Unknown [id number] 2.16.840.1.656070.3.579.2 .1258 1990 Unknown [id number] 2.16.840.1.089338.3.579.2 .1258 1990 Unknown [id number] 2.16.840.1.155521.3.579.2 .1258 1990 Unknown [id number] 2.16.840.1.644451.3.579.2 .1258 1990 Unknown [id number] 2.16.840.1.677685.3.579.2 .1258 1990 Unknown [id number] 2.16.840.1.447049.3.579.2 .1258 1990 Unknown [id number] 2.16.840.1.908178.3.579.2 .9 1959 Unknown [id number] 2.16.840.1.143003.19 Unknown [id number] 2.16.840.1.366399.3.579.2 .531 Unknown [id number] 2.16.840.1.514700.3.579.2 .531 Worker's Compensation [facility] [id number] Social History Date Type Detail Facility Start: 10-13-2023 End: 09-13-2024 Sex Assigned At [facility] Start: 1990 Sex Assigned At Female [facility] Start: 08-13-2023 End: 05-03-2024 Tobacco smoking status NHIS Never smoked tobacco [facility] Start: 01-06-2024 End: 06-12-2025 Alcohol intake Current drinker of alcohol (finding) [facility] Start: 10-13-2023 End: 09-13-2024 History of Social function [facility] How often to you hav e a drink containing alcohol? Monthly or less [facility] Average Number of Drinks Not on file [facility] How often do you hav e 6 or more drinks on 1 occasion? Never [facility] Start: 10-13-2023 Alcohol Comment Caffeine intake: non e [facility] Start: 06-25-2023 Gender identity Identifies as female gender (finding) [facility] Start: 10-18-2024 Sex Female (finding) [facility] Start: 11-16-2024 [facility] Clinical Notes 08-23-2021 to 06-12-2025 ALEXANDER Gramajo - 06/12/2025 2:10 PM EDJackson Charlton, RAILROAD DISPATCHER - 05/30/2025 8:50 AM EDAggie Dewitt NP - 05/01/2025 8:30 AM Joselito Kearney, RAILROAD DISPATCHER - 03/30/2025 10:10 AM EDT Note Date & Type Note Facility 06-12-2025 History of Presen t illness Narrative Reason [...] reviewed. Vitals: Estimated body mass index is 35.73 kg/m as calculated from the following: Height as of 01/06/24: 5' 7 . Weight as of this encounter: 228 lb 1.9 oz. BP: 120/70 Patient's last menstrual period was 11/02/2024. ASSESSMENT & PLAN ICD-10-CM 1. Excessive growth affecting management of in third trimester, single or unspecified fetus ([facility]) O36.63X0 US OB follow up transabdominal approach 2. 31 weeks gestation of ([facility]) Z3A.31 POCT urinalysis dipstick manually resulted 3. Third trimester ([facility]) Z34.93 POCT urinalysis dipstick manually resulted 4. History of miscarriage Z87.59 5. Multigravida of advanced maternal age in third trimester ([facility]) O09.523 Return OB: Patient presents today for a routine obstetrics appointment. Patient is currently 31w5d . Patient states she is doing well but has complaints of being tired due to current . Patient has verbalizes frequent movement. labor precautions was discussed/given and patient was instructed to perform kick counts three times a day. Orders Placed This Encounter Procedures US OB follow up transabdominal approach POCT urinalysis dipstick manually resulted Follow Up: Patient is to return to office in 1 week for routine OB appointment. Documented by ALEXANDER Gramajo on behalf of: Ángel Buckner DO documented in this encounter [facility] 05-30-2025 History of Presen t illness Narrative [...] nursing note reviewed. Exam conducted with a slab stripper present. Vitals: Estimated body mass index is 35.52 kg/m as calculated from the following: Height as of 01/06/24: 5' 7 . Weight as of this encounter: 226 lb 12.8 oz. BP: 120/78 Patient's last menstrual period was 11/02/2024. ASSESSMENT & PLAN ICD-10-CM 1. Third trimester ([facility]) Z34.93 POCT urinalysis dipstick manually resulted 2. 29 weeks gestation of ([facility]) Z3A.29 POCT urinalysis dipstick manually resulted 3. History of miscarriage Z87.59 4. Multigravida of advanced maternal age in third trimester ([facility]) O09.523 Return OB: Patient presents today [...] Ángel Buckner DO documented in this encounter [facility] 05-01-2025 History of Presen t illness [...] nursing note reviewed. Exam conducted with a slab stripper present. Vitals: Estimated body mass index is [...] Edson Dewitt NP documented in this encounter [facility] 03-30-2025 History of Presen t [...] nursing note reviewed. Exam conducted with a slab stripper present. Vitals: Estimated body mass index is [...] Ángel Buckner DO documented in this encounter [facility] 03-02-2025 History of Presen t [...] nursing note reviewed. Exam conducted with a slab stripper present. Vitals: Estimated body mass index is [...] obtained without difficulty and patient was given [facility] order to have obtained. Orders Placed [...] of: ALEXANDER Gramajo documented in this encounter [facility] 02-02-2025 History of Presen t [...] Ángel Buckner DO documented in this encounter [facility] 09-13-2024 History of Presen t illness Narrative Reason for Appointment: Patient ID: Mihcelet Reyes is a 34 y.o. female who [...] Diagnosis Date Fatigue GARTH (generalized anxiety disorder) ([facility]) Hyperlipidemia ([facility]) Paronychia, finger HISTORY PAST MEDICAL HISTORY SOCIAL [...] nursing note reviewed. Exam conducted with a slab stripper present. Vitals: Estimated body mass index is [...] Ángel Buckner DO documented in this encounter [facility] 01-06-2024 History of Presen t [...] Diagnosis Date Fatigue GARTH (generalized anxiety disorder) ([facility]) Hyperlipidemia ([facility]) Paronychia, finger Family History Problem Relation Name [...] of: ALEXANDER Gramajo documented in this encounter [facility] 10-02-2023 Evaluation note Encounter Date [...] No medication due to attempts to conceive 03 Nov, 2023 Gastroesophageal reflux disease without esophagitis (ICD-10 - K21.9) Diet instructions: Smaller portions, avoid eating and laying flat, avoid eating or drinking prior to bedtime. Weight loss. Pepcid PRN [employer] Other 2023 Evaluation note* Encounter Date Diagnosis Assessment Notes Treatment Notes Treatment Clinical Notes Dec, Nasal turbinate hypertrophy (ICD-10 - J34.3) FLonase, saline NS, Sudafed and avoid use of Afin. Refer to ENT. Dec, Nonallergic vasomotor rhinitis (ICD-10 - J30.0) Prednisone tapered over 8 days. Claritin as needed. [employer] Other 02-13-2023 Evaluation note* Encounter Date Diagnosis Assessment Notes Treatment Notes Treatment Clinical Notes Dec, Acute non-recurrent maxillary sinusitis (ICD-10 - J01.00) [employer] Other 01-25-2023 Evaluation note* Encounter Date Diagnosis Assessment Notes Treatment Notes Treatment Clinical Notes Nov, Acute non-recurrent maxillary sinusitis (ICD-10 - J01.00) Instructed to use Robitussin or Mucinex for cough, saline or Flonase NS for congestion, Tylenol for pain and fever. [employer] Other 10-28-2022 Evaluation note* Encounter Date Diagnosis [...] (suspected) exposure to covid-19 (ICD-10 - Z20.822) [employer] Other 10-27-2022 Evaluation note* Encounter Date Diagnosis Assessment Notes Treatment Notes Treatment Clinical Notes Aug, Encounter for immunization (ICD-10 - Z23) Patient presents today for COVID-19 vaccination booster. Patient pre-vaccination form answers reviewed. Patient denies current illness or allergic reaction to any component of a COVD-19 vaccine. Patient provided with copy of current EUA. [employer] Other 02-02-2022 Evaluation note* Encounter Date Diagnosis [...] Patient care instructions given in writting by [facility] document. Additional time spent conducting pre-visit phone call, screening for symptoms, instructions on social distancing, application and removal of PPE, and cleaning of examination room, equipment and supplies was preformed. Patient education given for testing methodology and results. Patient care instructions given in writting by [facility] document. [employer] Other 01-28-2022 Evaluation note* Encounter Date Diagnosis [...] Patient care instructions given in writting by [facility] document. [employer] Other 09-24-2021 Evaluation note* Encounter Date Diagnosis Assessment Notes Treatment Notes Treatment Clinical Notes Jul, Encounter for immunization (ICD-10 - Z23) Patient presents for COVID-19 vaccination #2. Pre-screening form answers evaluated with patient. Patient denies current illness or allergic reaction to component of COVID-19 vaccine. Patient provided with current copy of EUA. [employer] Other Evaluation noteNo assessment information available [facility] Work Phone: Evaluation noteNo InformationNort Nal[employer] Other Evaluation note* Diagnosis Encounter for weight management Hormone disorder Unspecified endocrine disorder 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 [facility] Diagnosis Well woman exam with routine gynecological exam Routine gynecological examination documented in this encounter [facility]* Diagnosis Onset Date Resolution Status Admit Date Hypercholesteremia acute Novemb er 2023 11:13am Wellness examination acute Nove mber 2023 11:13am [facility] Work Phone: Evaluation note* Diagnosis 13 [...] trimester ([facility]) documented [facility] encounter [facility]* Diagnosis Excessive growth affecting management of in third trimester, single or unspecified fetus ([facility])- Primary 31 weeks gestation of ([facility]) Third trimester ([facility]) state, incidental History of miscarriage Personal history of other genital system and obstetric disorders Multigravida of advanced maternal age in third trimester ([facility]) documented [facility] this encounter [facility] Narrative - Reported* Type Description Date Medical History Child X2 Natural Surgical History No know Surgical history Hospitalization History see above [employer] Other History general Narrative - Reported* Type Description Date Medical History Child X2 Natural Surgical History No Surgical history information Hospitalization History see above [employer] Other [facility] general Narrative - Reported* Type Description Date Medical History Child X2 Natural Medical History Body mass index (BMI) of 25.0 to 29.9 Medical History Fatigue Medical History Hyperlipidemia, group A Medical History GARTH (generalized anxiety disorde r) Surgical History No know Surgical history Hospitalization History No know Hospitalization history [employer] Other Chief Complaint and Reason for Visit [...] Nasal turbinate hype rtrophy (J34.3) Referral Organization [facility] Nela russo Referring Provider First Name Robles Referring Provider Last Name Nela Referring Provider Specialty Internal Me dicine Referred Organization [facility] Referred Provider Robles Hernandez Referred Address ,[place], [place],[address] Referred Provider Specialty Otolaryngolo gy Referral Priority Routine Referral Appointment Date 2023-02-04 General Notes Rosangela Cruz 09:25:33 AM >received today, notes locked, insurance card attached, referral faxed Rosangela Cruz 01/29/2023 12:42:25 PM >Shannan at Dr. Rodriges office requested referral be faxed again to [phone]. done! Rosangela Cruz 02/05/2023 02:23:23 PM >notes [...] Primary Care Provider Active Delano Francis DO [facility] Attending Provider Active Team Status: Active [...] January 07, 2024 End: January 07, 2024 Deployment Manager Relationship Specialty Start Date End Date Robles Charles MD [address] [place] [phone] PCP - General Internal Medicine 07/30/23 Team Status: Inactive Member Role Status Dates Robles Charles DO Primary Care Provide r, Attending Provider Active Start: 2024 End: 2024 Team Status: Inactive Member Role Status Dates Robles Charles DO Primary Care Provider Active Start: May 03, 2024 End: May 03, 2024 Caro Chacon APRN [employer] Attending Provider Act alex Start: May 03, 2024 End: May 03, 2024 Team Status: Inactive Member Role Status Dates Robles Charles DO Primary Care Provide r, Attending Provider Active Start: August 29, 2024 End: August 29, 2024 Deployment Manager Relationship Specialty Start Date End Date Robles Charles MD [address] [place] [phone] PCP - General Internal Medicine 07/30/23 Deisy Villar PA [address] [place] [address] [place] [address] PCP - Medical [employer] 11/30/23 11/29/99 Deployment Manager Relationship Specialty Start Date End Date Robles Charles MD [address] [place] [phone] PCP - General Internal Medicine 07/30/23 Deisy Villar PA [address] [place] [address] [place] [address] PCP - Medical [employer] 11/30/23 11/29/99 Deployment Manager Relationship Specialty Start Date End Date Robles Charles MD [address] [place] [phone] PCP - General Internal Medicine 07/30/23 Deisy Villar PA [address] [place] [address] [place] [address] PCP - Medical [employer] 11/30/23 11/29/99 Team Status: Inactive Member [...] October 18, 2024 End: October 18, 2024 Deployment Manager Relationship Specialty Start Date End Date Robles Charles MD [address] [place] [phone] PCP - General Internal Medicine 07/30/23 Deisy Villar PA [address] [place] [address] [place] [address] PCP - Medical [employer] 11/30/23 11/29/99 Deployment Manager Relationship Specialty Start Date End Date Robles Charles MD [address] [place] [phone] PCP - General Internal Medicine 07/30/23 Deisy Villar PA [address] [place] [address] [place] [address] PCP - Medical [employer] 11/30/23 11/29/99 Deployment Manager Relationship Specialty [place] [address] [place] [phone] PCP - General Internal Medicine 07/30/23 Deisy Villar PA [address] [place] [address] [place] [address] PCP - Medical [employer] 11/30/23 11/29/99 Deployment Manager Relationship Specialty Start Date End Date Robles Charles MD [address] [facility] [place] [phone] PCP - General Internal Medicine 07/30/23 Deisy Villar PA [address] [place] [address] [place] [address] PCP - Medical [employer] 11/30/23 11/29/99 Deployment Manager Relationship Specialty Start Date End Date Robles Charles MD PCP - General Internal Medicine 07/30/23 Deisy Villar PA [address] [place] [address] [place] [address] PCP - Medical [employer] 11/30/23 11/29/99 Deployment Manager Relationship Specialty Start Date End Date Robles Charles DO PCP - General Internal Medicine 07/30/23 Deisy Villar PA [address] [place] [address] [place] [address] PCP - Medical [employer] [employer] 11/30/23 11/29/99 Deployment Manager Relationship Specialty Start Date End Date Robles Charles DO [address] [place] [phone] PCP - General Internal Medicine 07/30/23 Deisy Villar PA [address], [place] [phone] PCP - Medical [employer] [employer] 11/30/23 11/29/99 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 Manager Relationship Specialty Start Date End Date Robles Charles DO [address] [place] [address] PCP - General Internal Medicine 07/30/23 Deisy Villar PA [address], [facility] PCP - Medical [place] [employer] 11/30/23 11/29/99 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 Manager Relationship Specialty Start Date End Date Robles Charles DO [address] [place] [phone] PCP - General Internal Medicine 07/30/23 Deisy Villar PA [address] [place] [address] [address] Ram[address]ran, [facility] PCP - Medical [place] [employer] 11/30/23 11/29/99 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 Manager Relationship Specialty Start Date End Date Robles Charles DO [address] [place] [phone] PCP - General Internal Medicine 07/30/23 Deisy Villar PA [address] [place], [place] [address]just[address] [place], [place] [phone] PCP - Medical [employer] [employer] 11/30/23 11/29/99 Deployment Manager Relationship Specialty Start Date End Date Robles Charles DO [address] [place] [phone] PCP - General Internal Medicine 07/30/23 Deisy Villar PA [address] [place] [address] PCP - Medical [place] [employer] 11/30/23 11/29/99 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 Manager Relationship Specialty Start Date End Date Robles Charles DO [address] [facility] [place] [phone] PCP - General Internal Medicine 07/30/23 Deisy Villar PA [address] [place] [address] PCP - Medical [place] [employer] 11/30/23 11/29/99 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 Manager Relationship Specialty Start Date End Date Robles Charles DO [address] [facility] [place] [place] [phone] PCP - General Internal Medicine 07/30/23 Deisy Villar PA [address] [facility] [place] [address] PCP - Medical [employer] [employer] 11/30/23 11/29/99 Goals (unrecognized section and content) Goals may be documented in a n alternate section INFORMATION SOURCE (unrecogn ized section and content) DATE CREATED AUTHOR 09/02/2022 [facility] pital DATE CREATED AUTHOR AUTHOR'S ORGANIZ ATION 09/23/2024 [facility] DATE CREATED AUTHOR AUTHOR'S ORGANIZ ATION 06/16/2025 [facility] EPIC FOR RECORDS PERTAINING [...] BE BASED ON THE PRIMARY CLINICAL RECORDS. [facility]. provides no warranty or guarantee of the accuracy or completeness of information in this document.
--- NOTE | 2025-06-17 08:09 | US_ITS ---
[address] [address] Patient Name: PHILLIP HERNANDEZ MRN: [facility]:[id number] date: 1990 Sex: F Assigned Patient Location: [facility] Current Patient Location: [facility] Accession/Order Number: [id number] Exam Date: 06/17/2025 09:17 Report Date: 06/17/2025 09:20 At the request of: LE DELVALLE DO Procedure: US OB BPP w non-stress Biophysical profile INDICATION: Multigravida of advanced maternal age COMPARISON: None FINDINGS AND IMPRESSION:: Fetus cephalic position with heart rate 155 bpm. 8 out of 8 score biophysical profile largest fluid pocket measuring 4.6 cm. MARTY is 14.1 cm. Impression dictated by: Carlton Ramachandran M.D. 06/17/2025 9:20 AM Dictation Location: [place] [address] Electronically authenticated by: [id number] Y Date: 06/17/2025 09:20
[2025-06-17 08:31] VITALS: BP 110/64; PULSE 80
== END 2025-06-17 09:00 | disposition home or self-care (01) ==
LOC: US 08:03 → FBC 08:08
PROVIDERS: PCP Internal Medicine; Visit Provider Obstetrics & Gynecology
DX: O09.523 Supervision of elderly multigravida, third trimester (principal); Z87.59 Personal history of other complications of pregnancy, childbirth and the puerperium; Z3A.32 32 weeks gestation of pregnancy
CPT/HCPCS: 76818

== ENCOUNTER 2025-06-24 08:01 | Outpatient (OUT) | payer OTHER, SELFPAY ==
--- NOTE | 2025-06-24 08:02 | US_ITS ---
[facility] [place] [id number] Patient Name: PHILLIP HERNANDEZ MRN: [id number] date: 1990 Sex: F Assigned Patient Location: Current Patient Location: Accession/Order Number: [id number] Exam Date: 06/24/2025 09:33 Report Date: 06/24/2025 09:34 At the request of: LE DELVALLE DO Procedure: US OB BPP w non-stress Biophysical profile. Reason for exam: History of miscarriage COMPARISON: 06/17/2025 TECHNIQUE: Transabdominal imaging of the gravid uterus was obtained. 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 MARTY is normal at 15 cm. heart rate 130 bpm. US/US OB BPP w non-stress IMPRESSION: BPP 8 out of 8. Impression dictated by: Justin Mack Jr., DCuauhtemocOCuauhtemoc 06/24/2025 9:34 AM Dictation Location: [email or web address] Electronically authenticated by: [id number] Y Date: 06/24/2025 09:34
--- OUTSIDE RECORDS SUMMARY | 2025-06-24 08:05 | XMS_ITS | CCD ---
Author Organization [facility] CliniSyla Care Team Providers Care 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 Of Music Name Role Phone Subha Dillon Unavailable Elsi [...] Timmons Attending Provider SHANNON Schaffer Attending Provider [phone] Robles Charles Unavailable MD Liz Conteh Primary Care Provider [phone] DO Delano Francis Attending Provider QUANG Villar Attending Provider DO Robles Charles Primary Care Provider [phone] Robles Charles MD Primary Care Provider QUANG [...] Unavailable Robles Charles DO Primary Care Provider [facility] Delano CRESPO Attending Provider Robles Charles MD [...] (5 sources) Penicillin V Drug Allergy rash R[facility] Other (1 source) Amoxicillin Drug Allergy 0 [facility] Repository (1 source) Penicillins Drug allergy (disorder) [facility] Repository (5 sources) Penicillin Drug Allergy rash R[facility] Other (1 source) Substance with penicillin structure and antibacterial mechanism of action (substance) Drug allergy [address] [facility] Other (20 sources) Amoxicillin Drug Allergy 3 [facility] Healthcare (20 sources) Penicillin G Drug Allergy 3 Unknown [facility] Healthcare (1 source) Penicillins Drug allergy (disorder) 4 [facility] Repository Medications Current Medications Medication Drug [...] 12/22/2024 02/02/2025 Active Pre- (10 sources) Pre- [facility] Pre-Mack Active MV-Min-Fe Fum-FA-DH A ( 1 [...] Facility US OB BPP W NON-STRESS on 06-17-2025 [place] [address] Ultrasound Report Signed Patient: ANGELA REYES MR#: [id number] : 1990 Acct:[id number] Age/Sex: 35 / F ADM Date: 06/17/25 Loc: [facility] 250-[address]: Ángel Buckner D.O. Ordering Physician: Ángel Buckner D.O. Date of Service: 06/17/25 Procedure(s): US OB BPP w non-stress Accession Number(s): [id number] cc: Robles Charles D.O.; Ángel Buckner D.O. [place] [id number] Patient Name: ANGELA REYES MRN: [id number]:[id number] date: 1990 Sex: F Assigned Patient Location: [facility] Current Patient Location: [facility] Accession/Order Number: [id number] Exam Date: 06/17/2025 09:17 Report Date: 06/17/2025 09:20 At the request of: ÁNGEL BUCKNER DO Procedure: US OB BPP w non-stress Biophysical profile INDICATION: Multigravida of advanced maternal age COMPARISON: None FINDINGS AND IMPRESSION:: Fetus cephalic position with heart rate 155 bpm. 8 out of 8 score biophysical profile largest fluid pocket measuring 4.6 cm. MARTY is 14.1 cm. Impression dictated by: Carlton Ramachandran M.D. 06/17/2025 9:20 AM Dictation Location: [place] [address] Electronically authenticated by: [id number] Y Date: 06/17/2025 09:20 Dictated By: Carlton Ramachandran M.D. Signed By: 06/17/25921 DD/ 9 TD/TT: Spa Supervisor: [facility] Radiology, Radiologi MD ember - 06/17/2025 [place] [address] Ultrasound Report Signed Patient: ANGELA REYES MR#: [id number] : 1990 Acct:[id number] Age/Sex: 35 / F ADM Date: 06/17/25 Loc: [facility] 250-[address]: Ángel Buckner D.O. Ordering Physician: Ángel Buckner D.O. Date of Service: 06/17/25 Procedure(s): US OB BPP w non-stress Accession Number(s): [id number] cc: Robles Charles D.O.; Ángel Buckner D.O. The [place] [address] Patient Name: ANGELA REYES MRN: [facility]:[id number] date: 1990 Sex: F Assigned Patient Location: [facility] Current Patient Location: [facility] Accession/Order Number: [id number] Exam Date: 06/17/2025 09:17 Report Date: 06/17/2025 09:20 At the request of: ÁNGEL BUCKNER DO Procedure: US OB BPP w non-stress Biophysical profile INDICATION: Multigravida of advanced maternal age COMPARISON: None FINDINGS AND IMPRESSION:: Fetus cephalic position with heart rate 155 bpm. 8 out of 8 score biophysical profile largest fluid pocket measuring 4.6 cm. MARTY is 14.1 cm. Impression dictated by: Carlton Ramachandran M.D. 06/17/2025 9:20 AM Dictation Location: [place] [address] Electronically authenticated by: [id number] Y Date: 06/17/2025 09:20 Dictated By: Carlton Ramachandran M.D. Signed By: 06/17/25921 DD/ 9 TD/TT: Spa Supervisor: [facility] Radiology Study observation (narrative) [facility] US OB BPP W NON-STRESS Ordered By: Radiologist Radiology on 06-17-2025 [facility] Work Phone: US OB BPP W NON-STRESS on 06-10-2025 [place] [address] Ultrasound Report Signed Patient: ANGELA REYES MR#: [id number] : 1990 Acct:[id number] Age/Sex: 35 / F ADM Date: 06/10/25 Loc: US Attending Dr: Ángel Buckner D.O. Ordering Physician: Ángel Buckner D.O. Date of Service: 06/10/25 Procedure(s): US OB BPP w non-stress Accession Number(s): [id number] cc: Robles Charles D.O.; Ángel Buckner D.O. [place] [address] Patient Name: ANGELA REYES MRN: [facility]:[id number] date: 1990 Sex: F Assigned Patient Location: [facility] Current Patient Location: Accession/Order Number: [id number] Exam Date: 06/10/2025 18:36 Report Date: 06/10/2025 [...] Yusuf M.D. 06/10/2025 6:38 PM Dictation Location: [place] [address] Electronically authenticated by: [id number] Y Date: 06/10/2025 18:38 Dictated By: Roddy Yusuf M.D. Signed By: 06/10/251840 DD/ 37 TD/TT: Spa Supervisor: [facility] Radiology Radiologi MD ember - 06/10/2025 [place] [address] Ultrasound Report Signed Patient: ANGELA REYES MR#: [id number] : 1990 Acct:[id number] Age/Sex: 35 / F ADM Date: 06/10/25 Loc: US Attending Dr: Ángel Buckner D.O. Ordering Physician: Ángel Buckner D.O. Date of Service: 06/10/25 Procedure(s): US OB BPP w non-stress Accession Number(s): [id number] cc: Robles Charles D.O.; Ángel Buckner D.O. The [place] [id number] Patient Name: ANGELA REYES MRN: [facility]:[id number] date: 1990 Sex: F Assigned Patient Location: [facility] Current Patient Location: Accession/Order Number: [id number] Exam Date: 06/10/2025 18:36 Report Date: 06/10/2025 [...] Yusuf M.D. 06/10/2025 6:38 PM [facility] Electronically authenticated by: [id number] Y Date: 06/10/2025 18:38 Dictated By: Roddy Yusuf M.D. Signed By: 06/10/25 184 DD/ 37 TD/TT: Spa Supervisor: [facility] Radiology Study observation (narrative) [facility] US OB BPP W NON-STRESS Ordered By: Radiologist Radiology on 06-10-2025 [facility] Work Phone: US OB BPP W NON-STRESS on 06-03-2025 [place] [address] Ultrasound Report Signed Patient: ANGELA REYES MR#: [id number] : 1990 Acct:[id number] Age/Sex: 35 / F ADM Date: 06/03/25 Loc: US Attending Dr: Ángel Buckner D.O. Ordering Physician: Ángel Buckner D.O. Date of Service: 06/03/25 Procedure(s): US OB BPP w non-stress Accession Number(s): [id number] cc: Robles Charles D.O.; Ángel Buckner D.O. [place] [id number] Patient Name: ANGELA REYES MRN: [facility]:[id number] date: 1990 Sex: F Assigned Patient Location: [facility] Current Patient Location: Accession/Order Number: [id number] Exam Date: 06/03/2025 14:22 Report Date: 06/03/2025 [...] Durand M.D. 06/03/2025 2:23 PM [facility]ictation [facility] Electron[facility] authenticated by: [id number] Y Date: 06/03/2025 14:23 Dictated By: Aguilar Durand D.O. Signed By: 06/03/25 1425 DD/ 142 TD/TT: Spa Supervisor: [facility] Radiology, Radiologi MD ember - 06/03/2025 [place] [address] Ultrasound Report Signed Patient: ANGELA REYES MR#: [id number] : 1990 Acct:[id number] Age/Sex: 35 / F ADM Date: 06/03/25 Loc: US Attending Dr: Ángel Buckner D.O. Ordering Physician: Ángel Buckner D.O. Date of Service: 06/03/25 Procedure(s): US OB BPP w non-stress Accession Number(s): [id number] cc: Robles Charles D.O.; Ángel Buckner D.O. The [address] [address] Patient Name: ANGELA REYES MRN: [facility]:[id number] date: 1990 Sex: F Assigned Patient Location: [facility] Current Patient Location: Accession/Order Number: [id number] Exam Date: 06/03/2025 14:22 Report Date: 06/03/2025 [...] Durand M.D. 06/03/2025 2:23 PM Dictation Location: [employer] Electronically authenticated by: [id number] Y Date: 06/03/2025 14:23 Dictated By: Aguilar Durand D.O. Signed By: 06/03/251424 DD/ 22 TD/TT: Spa Supervisor: [facility] Radiology Study observation (narrative) [facility] US OB BPP W NON-STRESS Ordered By: Radiologist Radiology on 06-03-2025 [facility] Work Phone: Urinalysis macro (dipstick) panel (U)on 05-30-2025 Bilirubin, UA Negative Negative - 4(70) +++ mg/dL [facility] Blood, UA Negative Negative - 50 Ezequiel/mcL [facility] Clarity, UA Clear [facility] Color, UA Yellow [facility] Glucose, UA Negative Negative - 2000(110) ++++ mg/dL [facility] Interpretation and review of laboratory results Normal [facility] Ketones, UA Negative Negative - 160(16) ++++ mg/dL [facility] Leukocytes, UA Negative Negative - 500+++ Jason/mcL [facility] Nitrite, UA Negative Negative - Positive [facility] pH, UA 5.5 5 - 9 [facility] Protein, UA Negative Negative - 2000(20) ++++ mg/dL [facility] Spec Grav, UA 1.02 1 - 1.03 [facility] Urobilinogen, UA 1.0 0.2 - 12 mg/dL [facility] US OB GROWTHon 05-11-[address] [address] Ultrasound Report Signed Patient: ANGELA REYES MR#: [id number] : 1990 Acct:[id number] Age/Sex: 35 / F ADM Date: 05/11/25 Loc: US Attending Dr: Edson Dewitt Ordering Physician: Edson Dewitt Date of Service: 05/11/25 Procedure(s): US OB growth Accession Number(s): [id number] cc: Robles Charles D.O.; Edson Dewitt [place] [id number] Patient Name: ANGELA REYES MRN: [facility]:[id number] date: 1990 Sex: F Assigned Patient Location: US Current Patient Location: US Accession/Order Number: [id number] Exam Date: 05/11/2025 14:38 Report Date: 05/11/2025 [...] Jr., D.O. 05/11/2025 2:40 PM Dictation Location: [place] [address] Electronically authenticated by: [id number] Y Date: 05/11/2025 14:40 Dictated By: Justin Mack M.D. Signed By: 05/11/25 1442 DD/ 39 TD/TT: Spa Supervisor: [facility] Radiology, Radiologbrittanie pa MD - 05/11/2025 The [place] [id number] Ultrasound Report Signed Patient: ANGELA REYES MR#: [id number] : 1990 Acct:[id number] Age/Sex: 35 / F ADM Date: 05/11/25 Loc: US Attending Dr: Edson Dewitt Ordering Physician: Edson Dewitt Date of Service: 05/11/25 Procedure(s): US OB growth Accession Number(s): [id number] cc: Robles Charles D.O.; Edson Dewitt [place] [address] Patient Name: ANGELA REYES MRN: [id number] date: 1990 Sex: F Assigned Patient Location: US Current Patient Location: US Accession/Order Number: [id number] Exam Date: 05/11/2025 14:38 Report Date: 05/11/2025 [...] Jr., D.O. 05/11/2025 2:40 PM Dictation Location: [place] [address] Electronically authenticated by: [id number] Y Date: 05/11/2025 14:40 Dictated By: Justin Mack M.D. Signed By: 05/11/25 1442 DD/ 39 TD/TT: Spa Supervisor: [facility] Radiology Study observation (narrative) [facility] US OB GROWTHOrdered By: Reg ologist Radiology on 05-11-2025 [facility] Work Phone: ALL CBC WITH AUTO DIFFon BASOPHILS ABSOLUTE AUTO 0 N [facility] Basophils/100 WBC (Bld) 0.2 % 0.2 - 2.0 % [facility] Eosinophils/100 WBC (Bld) 1.2 % 0.9 - 7.0 % [facility] Erythrocyte distribution width (RBC) [Ratio] 13.2 % 11.0 - 15.0 % [facility] Hematocrit (Bld) [Volume fraction] 31.9 % Low 36.0 - 48.0 % [facility] Hemoglobin (Bld) [Mass/Vol] 10.6 g/dL Low 12.0 - 16.0 g/dL [facility] IMMATURE GRANULOCYTES ABS AUTO 0.06 High [facility] Immature granulocytes/100 WBC (Bld) 0.6 % High 0.0 - 0.5 % [facility] Interpretation and review of laboratory results Abnormal [facility] LYMPHOCYTES ABSOLUTE AUTO 1.6 [facility] Lymphocytes/100 WBC (Bld) 15.6 % Low 20.5 - 60.0 % [facility] MCH (RBC) [Entitic mass] 32.6 pg 26.7 - 34.0 pg [facility] MCHC (RBC) [Mass/Vol] 33.2 g/dL 29.9 - 35.2 g/dL [facility] MCV (RBC) [Entitic vol] 98.2 fL 81.0 - 99.0 fL [facility] MONOCYTES ABSOLUTE AUTO 0.6 N [facility] Monocytes/100 WBC (Bld) 6 % 1.7 - 12.0 % [facility] NEUTROPHILS ABSOLUTE AUTO 7.7 High [facility] Neutrophils/100 WBC (Bld) 76.4 % High 43.0 - 75.0 % [facility] Platelet mean volume (Bld) [Entitic vol] 9 fL Low 9.5 - 13.5 fL [facility] TBH EO # 0.1 [facility] TBH PLT 313 [facility] TB RBC 3.25 Low [facility] TB WBC 10.1 [facility] GLUCOSE 1 HOURon 04-18-2025 Glucose [Mass/Vol] 96 mg/dL NINF - 13 0 mg/dL [facility] No Panel Informationon 04-18 [facility] US OB LIMITED 1+ FETUSESon [...] II, MD, PHD at 21-Apr-2025 12:15:59 PM [facility] T[facility] Normal Not Available Comment on above: Order Comment: US OB INCOMPLETE ANATOMY W US OB TRANSVAGINAL Estimated Date of Delivery: 08/09/25 Gestational Age as of 03/30/2025: 21w1d Urinalysis macro (dipstick) panel (U)on 03-30-2025 Bilirubin, UA Negative Negative - 4(70) +++ mg/dL [facility] Blood, UA Negative Negative - 50 Ezequiel/mcL [facility] Clarity, UA Clear [facility] Color, UA Yellow [facility] Glucose, UA Negative Negative - 2000(110) ++++ mg/dL [facility] Interpretation and review of laboratory results Normal [facility] Ketones, UA Negative Negative - 160(16) ++++ mg/dL [facility] Leukocytes, UA Negative Negative - 500+++ Jason/mcL [facility] Nitrite, UA Negative Negative - Positive [facility] pH, UA 7 5 - 9 [facility] Protein, UA Negative Negative - 2000(20) ++++ mg/dL [facility] Spec Grav, UA 1.02 1 - 1.03 [facility] Urobilinogen, UA 0.2 0.2 - 12 mg/dL [facility] US OB ANATOMYon 03-21-2025 [facility] [address] [place] [address] Ultrasound Report Signed Patient: ANGELA REYES MR#: [id number] : 1990 Acct:[id number] Age/Sex: 35 / F ADM Date: 03/20/25 Loc: US Attending Dr: Deisy Villar Ordering Physician: Deisy Villar Date of Service: 03/20/25 Procedure(s): US OB anatomy Accession Number(s): [id number] cc: Deisy Villar; Robles Charles D.O. [place] [id number] Patient Name: ANGELA REYES MRN: [facility]:[id number] date: 1990 Sex: F Assigned Patient Location: US Current Patient Location: Accession/Order Number: [id number] Exam Date: 03/21/2025 13:12 Report Date: 03/21/2025 [...] Aguilar Durand M.D.03/21/2025 1:16 PM Dictation Location: [employer] Electronically authenticated by: [id number] Y Date: 03/21/2025 13:16 Dictated By: Aguilar Durand D.O. Signed By: 03/21/25 1319 DD/ TD/TT: Spa Supervisor: [facility] RadiologyNeelimaogbrittanie pa MD - 03/21/[address] [address] Ultrasound Report Signed Patient: ANGELA REYES MR#: [id number] : 1990 Acct:[id number] Age/Sex: 35 / F ADM Date: 03/20/25 Loc: US Attending Dr: Deisy Villar Ordering Physician: Deisy Villar Date of Service: 03/20/25 Procedure(s): US OB anatomy Accession Number(s): [id number] cc: Deisy Villar; Robles Charles D.O. The [address] [address] Patient Name: ANGELA REYES MRN: [facility]:[id number] date: 1990 Sex: F Assigned Patient Location: US Current Patient Location: Accession/Order Number: [id number] Exam Date: 03/21/2025 13:12 Report Date: 03/21/2025 [...] Aguilar Durand M.D.03/21/2025 1:16 PM Dictation Location: [place] [address] Electronically authenticated by: [id number] Y Date: 03/21/2025 13:16 Dictated By: Aguilar Durand D.O. Signed By: 03/21/25 1319 DD/ 131 TD/TT: Spa Supervisor: [facility] Radiology Study observation (narrative) [facility] US OB ANATOMYOrdered By: Chepe jay Radiology on 03-21-2025 [facility] Work Phone: US OB CERVICAL LENGTHon 03-01 [place] [id number] Ultrasound Report Signed Patient: ANGELA REYES MR#: [id number] : 1990 Acct:[id number] Age/Sex: 35 / F ADM Date: 03/20/25 Loc: US Attending Dr: Deisy Villar Ordering Physician: Deisy Villar Date of Service: 03/20/25 Procedure(s): US OB cervical length Accession Number(s): [id number] cc: Deisy Villar; Robles Charles D.O. The [place] [id number] Patient Name: ANGELA REYES MRN: [id number]:[id number] date: 1990 Sex: F Assigned Patient Location: US Current Patient Location: Accession/Order Number: [id number] Exam Date: 03/21/2025 09:18 Report Date: 03/21/2025 09:19 At the request of: DEISY VILLAR Procedure: US OB cervical length Ultrasound assessment of the cervical length The cervical length is 3.8 cm. The cervical os is closed. US/US OB cervical length IMPRESSION: #3.8 cm cervical length. Impression dictated by: Aguilar Durand M.D.03/21/2025 9:19 AM Dictation Location[facility] Electronically authenticated by: [id number] Y Date: 03/21/2025 09:19 Dictated By: Aguilar Durand D.O. Signed By: 03/21/25921 DD/ 8 TD/TT: Spa Supervisor: [facility] Radiology, Radiologbrittanie pa MD - 03/21/2025 [place] [address] Ultrasound Report Signed Patient: ANGELA REYES MR#: [id number] : 1990 Acct:[id number] Age/Sex: 35 / F ADM Date: 03/20/25 Loc: US Attending Dr: Deisy Villar Ordering Physician: Deisy Villar Date of Service: 03/20/25 Procedure(s): US OB cervical length Accession Number(s): [id number] cc: Deisy Villar; Robles Charles D.O. The [place] [id number] Patient Name: ANGELA REYES MRN: [facility]:[id number] date: 1990 Sex: F Assigned Patient Location: US Current Patient Location: Accession/Order Number: [id number] Exam Date: 03/21/2025 09:18 Report Date: 03/21/2025 09:19 At the request of: DEISY VILLAR Procedure: US OB cervical length Ultrasound assessment of the cervical length The cervical length is 3.8 cm. The cervical os is closed. US/US OB cervical length IMPRESSION: #3.8 cm cervical length. Impression dictated by: Aguilar Durand M.D.03/21/2025 9:19 AM Dictation Location[facility] Electronically authenticated by: [id number] Y Date: 03/21/2025 09:19 Dictated By: Aguilar Durand D.O. Signed By: 03/21/25921 DD/ 8 TD/TT: Spa Supervisor: [facility] Radiology Study observation (narrative) [facility] US OB CERVICAL LENGTHOrdered By: Radiologist Radiology on 03-21-2025 [facility] Work Phone: IGP,APTIMA HPV,AGE GDLNon AGE GDLN ACOG TESTING Note . [facility] Comment on above: TESTS RESULT FLAG U NITS REF RANGE LAB Clinician Provided Cytology Information Source.............Cervix Other.............. No. of containers..01 ThinPrep Vial Age Algo ACOG Lara... 30-65 01 FLAG LEGEND: L-Low Normal,H-High Normal,LL-Alert Low,HH-Alert High <-Panic Low,>-Panic High,A-Abnormal,AA-Critical Abnormal Performed at: 01 =G [address] [address] Ilana Heath MD, HPV APTIMA Negative Negative [facility] Comment on above: This nucleic acid am plification test detects fourteen high- risk HPV types (16,18,31,33,35,39,45,51,52,56,58,59,66,68) without differentiation. Performed at: =G - [facility] [id number] On Site Services Specialist: Ilana Heath MD, Phone: [phone] Performed at: WB - [facility], [place] [id number] On Site Services Specialist: Ilana Heath MD, Phone: [phone] IGP, APTIMA HPV, RFX 16/18,45 Note . [facility] Comment on above: TESTS RESULT FLAG UN ITS REF RANGE LAB DIAGNOSIS: 02 NEGATIVE FOR INTRAEPITHELIAL LESION OR MALIGNANCY. THIS SPECIMEN WAS RESCREENED PART OF OUR LIBRARY CONSULTANT PROGRAM. Specimen adequacy: 02 Satisfactory for evaluation. No endocervical component is identified. Performed by: 03 Eugenia Kennedy, Records Management Coordinator (ASCP) QC reviewed by: 02 Meredith Chávez, Metal Stud Framer . 02 Note: Note 02 The Pap [...] High,A-Abnormal,AA-Critical Abnormal Performed at: 02 WB [facility] [address] [place] [address] Ilana Heath MD, 03 KWCYT [facility] [place] [facility] [address] [address] [place] [address] Lloyd Kim MD, SPATULA-ALONE CERVIX [facility] RECURRENT VAGINITIS (HTRX)on 03-03-2025 ATOPOBIUM VAGINAE 0 [facility] ATOPOBIUM VAGINAE Not detected [facility] BVAB 2,3 (BACTERIAL VAGINOSIS ASSOCIATED BACTERIA 2, 3); MOBILUNCUS SPP 0 [facility] BVAB 2,3 (BACTERIAL VAGINOSIS ASSOCIATED BACTERIA 2, 3); MOBILUNCUS SPP Not detected [facility] ANEUDY ALBICANS, PARAPSILOSIS, TROPICALIS 0 [facility] Healthcare ANEUDY ALBICANS, PARAPSILOSIS, TROPICALIS Not detected [facility] ANEUDY GLABRATA 0 [facility] ANEUDY GLABRATA Not detected [facility] ANEUDY KRUSEI 0 [facility] ANEUDY KRUSEI Not detected [facility] CHLAMYDIA TRACHOMATIS 0 [facility] CHLAMYDIA TRACHOMATIS Not detected [facility] GARDNERELLA VAGINALIS 0 [facility] S Healthcare GARDNERELLA VAGINALIS Not detected [facility] MEGASPHAERA (TYPES 1, 2) 0 [facility] MEGASPHAERA (TYPES 1, 2) Not detected [facility] MYCOPLASMA GENITALIUM 0 [facility] MYCOPLASMA GENITALIUM Not detected N [facility] Healthcare NEISSERIA GONORRHOEAE 0 [facility] S Healthcare NEISSERIA GONORRHOEAE Not detected [facility] TRICHOMONAS VAGINALIS 0 [facility] S Healthcare TRICHOMONAS VAGINALIS Not detected [facility] Healthcare Urinalysis macro (dipstick) panel (U)on 03-02-2025 Bilirubin, UA Negative Negative - 4(70) +++ mg/dL [facility] Blood, UA Negative Negative - 50 Ezequiel/mcL [facility] Clarity, UA Clear [facility] Color, UA Yellow [facility] Glucose, UA Negative Negative - 2000(110) ++++ mg/dL [facility] Interpretation and review of laboratory results Normal [facility] Ketones, UA Negative Negative - 160(16) ++++ mg/dL [facility] Leukocytes, UA Negative Negative - 500+++ Jason/mcL [facility] Nitrite, UA Negative Negative - Positive [facility] pH, UA 7 5 - 9 [facility] Protein, UA Negative Negative - 1999(20) ++++ mg/dL [facility] Spec Grav, UA 1.02 1 - 1.03 [facility] Urobilinogen, UA 0.2 0.2 - 12 mg/dL [facility] Urinalysis macro (dipstick) panel (U)on 02-02-2025 Bilirubin, UA Negative Negative - 4(70) +++ mg/dL [facility] Blood, UA Negative Negative - 50 Ezequiel/mcL [facility] Clarity, UA Clear [facility] Color, UA Yellow [facility] Glucose, UA Negative Negative - 1999(110) ++++ mg/dL [facility] Interpretation and review of laboratory results Abnormal [facility] Ketones, UA Negative Negative - 160(16) ++++ mg/dL [facility] Leukocytes, UA Trace Negative - 500+++ Jason/mcL [facility] Nitrite, UA Negative Negative - Positive [facility] pH, UA 6 5 - 9 [facility] Protein, UA Negative Negative - 1999(20) ++++ mg/dL [facility] Spec Grav, UA 1.025 1 - 1.03 [facility] Urobilinogen, UA 0.2 0.2 - 12 mg/dL [facility] ALL CBC WITH AUTO DIFFon BASOPHILS ABSOLUTE AUTO 0 N [facility] Basophils/100 WBC (Bld) 0.4 % 0.2 - 2.0 % [facility] Eosinophils/100 WBC (Bld) 2.2 % 0.9 - 7.0 % [facility] Erythrocyte distribution width (RBC) [Ratio] 12.5 % 11.0 - 15.0 % [facility] Hematocrit (Bld) [Volume fraction] 34 % Low 36.0 - 48.0 % [facility] Hemoglobin (Bld) [Mass/Vol] 11.7 g/dL Low 12.0 - 16.0 g/dL [facility] IMMATURE GRANULOCYTES ABS AUTO 0.03 [facility] Immature granulocytes/100 WBC (Bld) 0.4 % 0.0 - 0.5 % [facility] Interpretation and review of laboratory results Abnormal [facility] LYMPHOCYTES ABSOLUTE AUTO 1.6 [facility] Lymphocytes/100 WBC (Bld) 20.4 % Low 20.5 - 60.0 % [facility] MCH (RBC) [Entitic mass] 31.5 pg 26.7 - 34.0 pg [facility] MCHC (RBC) [Mass/Vol] 34.4 g/dL 29.9 - 35.2 g/dL [facility] MCV (RBC) [Entitic vol] 91.6 fL 81.0 - 99.0 fL [facility] MONOCYTES ABSOLUTE AUTO 0.6 N [facility] Monocytes/100 WBC (Bld) 7.2 % 1.7 - 12.0 % [facility] NEUTROPHILS ABSOLUTE AUTO 5.6 [facility] Neutrophils/100 WBC (Bld) 69.4 % 43.0 - 75.0 % [facility] Platelet mean volume (Bld) [Entitic vol] 9.6 fL 9.5 - 13.5 fL [facility] TBH EO # 0.2 [facility] TBH PLT 302 [facility] TB RBC 3.[address] [facility] WBC 8 [facility] CLINISYNC [facility] US OB TRANSVAGINALon 025 [...] II, MD, PHD at 09-Jan-2025 09:10:54 AM [facility] Normal Not Available Comment on above: Order Comment: US OB TRANSVAGINAL No LMP recorded. TBH PREG QUANT HCGon 025 HCG QUANTITATIVE 82950 mIU/mL [facility] Comment on above: 5-50 0.2-1 WEEK 50-500 1-2 WEEKS 100-5,000 2-3 WEEKS 500-10,000 3-4 WEEKS 1,000-50,000 4-5 WEEKS 10,000-100,000 5-6 WEEKS 15,000-200,000 6-8 WEEKS 10,000-100,000 [facility] 025 HCG QUANTITATIVE 23404 mIU/mL [facility] Comment on above: 5-50 0.2-1 WEEK 50-500 1-2 WEEKS 100-5,000 2-3 WEEKS 500-10,000 3-4 WEEKS 1,000-50,000 4-5 WEEKS 10,000-100,000 5-6 WEEKS 15,000-200,000 6-8 WEEKS 10,000-100,000 [facility]ophil %Ordered By: Delano Francis on 09-22-2024 Basophils/100 WBC (Bld) 0.6 % Normal . [facility] Comment on above: Performed By: #### D HEAS, LC T4, [id number], SEROTON, TEST F + T, T3R, THYGLOB AB, ESTRADIOL, TPO, SHBG, ESTRONE, INSULIN, PROG #### [facility] , #### T4F, TRISTEN, TSH3, A1C WTH eA, FILIBERTO, GLU, T3F #### [address] Automated basophil countOrde red By: Delano Francis on 09-22-2024 Basophils (Bld) [#/Vol] 0.0 10*3/uL Normal 0.0-0.2 [facility] Comment on above: Result Comment: PERF ORMED BY: [place] [address] PATHOLOGIST TAX ACCOUNTANT JOSE GOEL M.D. Performed By: #### D HEAS, LC T4, [id number], SEROTON, TEST F + T, T3R, THYGLOB AB, ESTRADIOL, TPO, SHBG, ESTRONE, INSULIN, PROG #### [facility] , #### T4F, TRISTEN, TSH3, A1C WTH eA, FILIBERTO, GLU, T3F #### [facility] [address] [place] [address] Automated blood monocyte cou ntOrdered By: Delano Francis on 09-22-2024 Monocytes (Bld) [#/Vol] 0.4 10*3/uL Normal 0.0-0.8 [facility] Comment on above: Performed By: #### D HEAS, LC T4, [id number], SEROTON, TEST F + T, T3R, THYGLOB AB, ESTRADIOL, TPO, SHBG, ESTRONE, INSULIN, PROG #### [facility] , #### T4F, TRISTEN, TSH3, A1C WTH eA, FILIBERTO, GLU, T3F #### [facility] [address] [place] [address] Automated eosinophil %Ordere d By: Delano Francis on 09-22-2024 Eosinophils/100 WBC (Bld) 1.7 % Normal . [facility] Comment on above: Performed By: #### D HEAS, LC T4, [id number], SEROTON, TEST F + T, T3R, THYGLOB AB, ESTRADIOL, TPO, SHBG, ESTRONE, INSULIN, PROG #### [facility] , #### T4F, TIRSTEN, TSH3, A1C WTH eA, FILIBERTO, GLU, T3F #### [facility] [address] [place] [address] Automated eosinophil countOr dered By: Delano Francis on 09-22-2024 Eosinophils (Bld) [#/Vol] 0.1 10*3/uL Normal 0.0-0.45 [facility] Comment on above: Performed By: #### D HEAS, LC T4, [id number], SEROTON, TEST F + T, T3R, THYGLOB AB, ESTRADIOL, TPO, SHBG, ESTRONE, INSULIN, PROG #### [facility] , #### T4F, TRISTEN, TSH3, A1C WTH eA, FILIBERTO, GLU, T3F #### [facility] [address] Automated monocyte %Ordered By: Delano Francis on 09-22-2024 Monocytes/100 WBC (Bld) 8.7 % Normal . [facility] Comment on above: Performed By: #### D HEAS, LC T4, [id number], SEROTON, TEST F + T, T3R, THYGLOB AB, ESTRADIOL, TPO, SHBG, ESTRONE, INSULIN, PROG #### [facility] , #### T4F, TRISTEN, TSH3, A1C WTH eA, FILIBERTO, GLU, T3F #### [address] Automated neutrophil %Ordere d By: Delano Francis on 09-22-2024 Neutrophils/100 WBC (Bld) 63.7 % Normal . [facility] Comment on above: Performed By: #### D HEAS, LC T4, [id number], SEROTON, TEST F + T, T3R, THYGLOB AB, ESTRADIOL, TPO, SHBG, ESTRONE, INSULIN, PROG #### [facility] , #### T4F, TRISTEN, TSH3, A1C WTH eA, FILIBERTO, GLU, T3F #### [facility] [address] [place] [address] [place] Basophils Auto (Bld) [#/Vol] Ordered By: Delano Francis on 09-22-2024 Basophils (Bld) [#/Vol] Automated basophil count 0.0-0.2 [facility] Basophils/100 WBC Auto (Bld) Ordered By: Delano Francis on 09-22-2024 Basophils/100 WBC (Bld) Automated basophil % . [facility] Calcium [Mass/volume] in Ser um or PlasmaOrdered By: Delano Francis on 09-22-2024 Calcium [Mass/Vol] 9.4 mg/dL Normal 8.6-10.3 [facility] Comment on above: Performed By: #### D DANIELLEAS, LC T4, [id number], SEROTON, TEST F + T, T3R, THYGLOB AB, ESTRADIOL, TPO, SHBG, ESTRONE, INSULIN, PROG #### [facility] , #### T4F, TRISTEN, TSH3, A1C WTH eA, FILIBERTO, GLU, T3F #### [facility] [address] Calcium [Mass/Vol] Calcium [Mass/volume ] in Serum or Plasma 8.6-10.3 [facility] Carbon dioxide, total [Moles /volume] in Serum or PlasmaOrdered By: Delano Francis on 09-22-2024 CO2 [Moles/Vol] 29.2 mmol/L Normal 21.0-31.0 [facility] Comment on above: Performed By: #### D VENITA, LC T4, [id number], SEROTON, TEST F + T, T3R, THYGLOB AB, ESTRADIOL, TPO, SHBG, ESTRONE, INSULIN, PROG #### [facility] , #### T4F, TRISTEN, TSH3, A1C WTH eA, FILIBERTO, GLU, T3F #### [facility] [address] CO2 [Moles/Vol] Carbon dioxide, tota l [Moles/volume] in Serum or Plasma 21.0-31.0 [facility] Chloride [Moles/volume] in S stevo or PlasmaOrdered By: Delano Francis on 09-22-2024 Chloride [Moles/Vol] 105 mmol/L Normal 98-107 [facility] Comment on above: Performed By: #### D HEAS, LC T4, [id number], SEROTON, TEST F + T, T3R, THYGLOB AB, ESTRADIOL, TPO, SHBG, ESTRONE, INSULIN, PROG #### [facility] , #### T4F, TRISTEN, TSH3, A1C WTH eA, FILIBERTO, GLU, T3F #### [facility] [address] Chloride [Moles/Vol] Chloride [Moles/vol ume] in Serum or Plasma 98-107 [facility] Cholesterol [Mass/volume] in Serum or PlasmaOrdered By: Delano Francis on 09-22-2024 Cholesterol [Mass/Vol] 217 mg/dL High 140-200 [facility] Comment on above: Chol less than 200 m g/dl low riskChol 201-239 mg/dl borderline riskChol 240 mg/dl and greater high risk Result Comment: Chol less than 200 mg/dl low risk Chol 201-239 mg/dl borderline risk Chol 240 mg/dl and greater high risk Performed By: #### D HEAS, LC T4, [id number], SEROTON, TEST F + T, T3R, THYGLOB AB, ESTRADIOL, TPO, SHBG, ESTRONE, INSULIN, PROG #### [facility] , #### T4F, TRISTEN, TSH3, A1C WTH eA, FILIBERTO, GLU, T3F #### [facility] [address] Cholesterol [Mass/Vol] Cholesterol [Mass/volume] in Serum or Plasma High 140-200 [facility] Comment on above: Chol less than 200 m g/dl low riskChol 201-239 mg/dl borderline riskChol 240 mg/dl and greater high risk Cholesterol in HDL [Mass/vol ume] in Serum or PlasmaOrdered By: Delano Francis on 09-22-2024 Cholesterol in HDL [Mass/Vol] Serum or plasma high density lipoprotein (HDL) cholesterol measurement 23-92 [facility] Comment on above: HDL CHOL ATP-III CLA SSIFICATION Cardiovascular RiskHDL > or equal to 60 mg/dL LOWHDL < 40 mg/dL HIGH Cholesterol in LDL Calc [Mas s/Vol]Ordered By: Delano Francis on 09-22-2024 Cholesterol in LDL [Mass/Vol] 148 mg/dL High 0-100 [facility] Comment on above: LDL ATP III CLASSIFI CATIONLDL less than 100 mg/dL OptimalLDL 100-129 mg/dL Near or above optimalLDL 130-159 mg/dL Borderline highLDL 160-189 mg/dL HighLDL greater than 189 mg/dL Very high Cholesterol in LDL [Mass/Vol] Cholesterol in LDL [Mass/volume] in Serum or Plasma by calculation High 0-100 [facility] Comment on above: LDL ATP III CLASSIFI CATIONLDL less than 100 mg/dL OptimalLDL 100-129 mg/dL Near or above optimalLDL 130-159 mg/dL Borderline highLDL 160-189 mg/dL HighLDL greater than 189 mg/dL Very high Cholesterol in VLDL Calc [Ma ss/Vol]Ordered By: Delano Francis on 09-22-2024 Cholesterol in VLDL [Mass/Vol] 10 mg/dL [facility] Cholesterol in VLDL [Mass/Vol] Cholesterol in VLDL [Mass/volume] in Serum or Plasma by calculation [facility] Creatinine [Mass/volume] in Serum or PlasmaOrdered By: Delano Francis on 09-22-2024 Creatinine [Mass/Vol] 0.73 mg/dL Normal 0.60-1.20 [facility] Comment on above: Performed By: #### D VENITA, JOSSE T4, [id number], SEROTON, TEST F + T, T3R, THYGLOB AB, ESTRADIOL, TPO, SHBG, ESTRONE, INSULIN, PROG #### [facility] , #### T4F, TRISTEN, TSH3, A1C WTH eA, FILIBERTO, GLU, T3F #### [facility] [address] [place] [address] Creatinine [Mass/Vol] Creatinine [Mass/v olume] in Serum or Plasma 0.60-1.20 [facility] Employee Basic Metabolic Olvera bagdad 09-22-2024 GFR/1.73 sq M.predicted MDRD (S/P/Bld) [Vol rate/Area] mL/min/{1.73_m2} Normal [facility] Comment on above: Performed By: #### D JOSSE NATHAN T4, [id number], SEROTON, TEST F + T, T3R, THYGLOB AB, ESTRADIOL, TPO, SHBG, ESTRONE, INSULIN, PROG #### [facility] , #### T4F, TRISTEN, TSH3, A1C WTH eA, FILIBERTO, GLU, T3F #### [address] Employee Complete Blood Coun ton 09-22-2024 Mean Corpuscular HGB Conc 34.2 g/dL Normal 32.0-35.0 [facility] Comment on above: Performed By: #### D HEAS, LC T4, [id number], SEROTON, TEST F + T, T3R, THYGLOB AB, ESTRADIOL, TPO, SHBG, ESTRONE, INSULIN, PROG #### [facility] , #### T4F, TRISTEN, TSH3, A1C WTH eA, FILIBERTO, GLU, T3F #### [address] NRBC% 0.0 /100{WBC} Normal 0-0.5 [facility] Comment on above: Performed By: #### D HEAS, LC T4, [id number], SEROTON, TEST F + T, T3R, THYGLOB AB, ESTRADIOL, TPO, SHBG, ESTRONE, INSULIN, PROG #### [facility] , #### T4F, TRISTEN, TSH3, A1C WTH eA, FILIBERTO, GLU, T3F #### [address] Employee Lipid Profileon LDL Cholesterol,Calculated 148 mg/dL High 0-100 [facility] Comment on above: Result Comment: LDL ATP III CLASSIFICATION LDL less than 100 mg/dL Optimal LDL 100-129 mg/dL Near or above optimal LDL 130-159 mg/dL Borderline high LDL 160-189 mg/dL High LDL greater than 189 mg/dL Very high Performed By: #### D HEAS, LC T4, [id number], SEROTON, TEST F + T, T3R, THYGLOB AB, ESTRADIOL, TPO, SHBG, ESTRONE, INSULIN, PROG #### [facility] , #### T4F, TRISTEN, TSH3, A1C WTH eA, FILIBERTO, GLU, T3F #### [facility] [address] Triglyceride w/Reflex 52 mg/dL Normal 0-149 [facility] Comment on above: Result Comment: TRIG ATP III CLASSIFICATION TRIG less than 150 mg/dL Normal TRIG 150-199 mg/dL Borderline high TRIG 200-500 mg/dL High TRIG greater than 500 mg/dL Very high Standard traceable to the Center for Disease Conrtrol and Prevention (CDC) test method. Performed By: #### D HEAS, LC T4, [id number], SEROTON, TEST F + T, T3R, THYGLOB AB, ESTRADIOL, TPO, SHBG, ESTRONE, INSULIN, PROG #### [facility] , #### T4F, TRISTEN, TSH3, A1C WTH eA, FILIBERTO, GLU, T3F #### [address] VLDL CHOLESTEROL 10 mg/dL Normal [facility] Comment on above: Performed By: #### D HEAS, LC T4, [id number], SEROTON, TEST F + T, T3R, THYGLOB AB, ESTRADIOL, TPO, SHBG, ESTRONE, INSULIN, PROG #### [facility] , #### T4F, TRISTEN, TSH3, A1C WTH eA, FILIBERTO, GLU, T3F #### [address] Employee Thyroid Stim Hormon lonnie 09-22-2024 Employee Thyroid Stim Hormone 2.30 u[iU]/mL Normal 0.45-5.33 [facility] Comment on above: Result Comment: PERF ORMED BY: [place] [address] PATHOLOGIST TAX ACCOUNTANT JOSE GOEL M.D. Performed By: #### D HEAS, LC T4, [id number], SEROTON, TEST F + T, T3R, THYGLOB AB, ESTRADIOL, TPO, SHBG, ESTRONE, INSULIN, PROG #### [facility] , #### T4F, TRISTEN, TSH3, A1C WTH eA, FILIBERTO, GLU, T3F #### [facility] [address] [place] [address] [place] Eosinophils Auto (Bld) [#/Vo l]Ordered By: Delano Francis on 09-22-2024 Eosinophils (Bld) [#/Vol] Automated eosinophil count 0.0-0.45 [facility] Eosinophils/100 WBC Auto (Bl d)Ordered By: Delano Francis on 09-22-2024 Eosinophils/100 WBC (Bld) Automated eosinophil % . [facility] Erythrocyte distribution wid th Auto (RBC) [Ratio]Ordered By: Delano Francis on 09-22-2024 Erythrocyte distribution width (RBC) [Ratio] Erythrocyte distribution width [Ratio] by Automated count 11.9-15.3 [facility] Erythrocyte distribution wid th [Ratio] by Automated countOrdered By: Delano Francis on 09-22-2024 Erythrocyte distribution width (RBC) [Ratio] 13.2 % Normal 11.9-15.3 [facility] Comment on above: Performed By: #### D HEAS, LC T4, [id number], SEROTON, TEST F + T, T3R, THYGLOB AB, ESTRADIOL, TPO, SHBG, ESTRONE, INSULIN, PROG #### [facility] , #### T4F, TRISTEN, TSH3, A1C WTH eA, FILIBERTO, GLU, T3F #### [facility] [address] [place] [address] [place] Erythrocytes [#/volume] in B lood by Automated countOrdered By: Delano Francis on 09-22-2024 RBC (Bld) [#/Vol] 3.91 10*6/uL Normal 3.60-5.00 [facility] Comment on above: Performed By: #### D HEAS, LC T4, [id number], SEROTON, TEST F + T, T3R, THYGLOB AB, ESTRADIOL, TPO, SHBG, ESTRONE, INSULIN, PROG #### [facility] , #### T4F, TRISTEN, TSH3, A1C WTH eA, FILIBERTO, GLU, T3F #### [facility] [address] [place] [address] [place] Glucose [Mass/volume] in Ser um or PlasmaOrdered By: Delano Francis on 09-22-2024 Glucose [Mass/Vol] 83 mg/dL Normal 70-100 [facility] Comment on above: Performed By: #### D VENITA, LC T4, [id number], SEROTON, TEST F + T, T3R, THYGLOB AB, ESTRADIOL, TPO, SHBG, ESTRONE, INSULIN, PROG #### [facility] , #### T4F, TRISTEN, TSH3, A1C WTH eA, FILIBERTO, GLU, T3F #### [facility] [address] [place] [address] [place] Glucose [Mass/Vol] Glucose [Mass/volume ] in Serum or Plasma 70-100 [facility] Hematocrit Auto (Bld) [Volum e fraction]Ordered By: Delano Francis on 09-22-2024 Hematocrit (Bld) [Volume fraction] Hematocrit [Volume Fraction] of Blood by Automated count 34.0-46.4 [facility] Hematocrit [Volume Fraction] of Blood by Automated countOrdered By: Delano Francis on 09-22-2024 Hematocrit (Bld) [Volume fraction] 35.9 % Normal 34.0-46.4 [facility] Comment on above: Performed By: #### D VENITA, LC T4, [id number], SEROTON, TEST F + T, T3R, THYGLOB AB, ESTRADIOL, TPO, SHBG, ESTRONE, INSULIN, PROG #### [facility] , #### T4F, TRISTEN, TSH3, A1C WTH eA, FILIBERTO, GLU, T3F #### [facility] [address] [place] [address] [place] Hemoglobin [Mass/volume] in BloodOrdered By: Delano Francis on 09-22-2024 Hemoglobin (Bld) [Mass/Vol] 12.3 g/dL Normal 11.8-15.4 [facility] Comment on above: Performed By: #### D HEAS, LC T4, [id number], SEROTON, TEST F + T, T3R, THYGLOB AB, ESTRADIOL, TPO, SHBG, ESTRONE, INSULIN, PROG #### [facility] , #### T4F, TRISTEN, TSH3, A1C WTH eA, FILIBERTO, GLU, T3F #### [facility] [address] Hemoglobin (Bld) [Mass/Vol] Hemoglobin [Mass/volume] in Blood 11.8-15.4 [facility] Leukocytes [#/volume] correc calvin for nucleated erythrocytes in Blood by Automated counOrdered By: Delano Francis on 09-22-2024 WBC corrected for nucl RBC Auto (Bld) [#/Vol] 5.1 10*3/uL 3.8-11.6 [facility] WBC corrected for nucl RBC Auto (Bld) [#/Vol] Leukocytes [#/volume] corrected for nucleated erythrocytes in Blood by Automated coun 3.8-11.6 [facility] Leukocytes [#/volume] in Blo od by Automated countOrdered By: Delano Francis on 09-22-2024 WBC (Bld) [#/Vol] 5.1 10*3/uL Normal 3.8-11.6 [facility] Comment on above: Performed By: #### D VENITA, JOSSE T4, [id number], SEROTON, TEST F + T, T3R, THYGLOB AB, ESTRADIOL, TPO, SHBG, ESTRONE, INSULIN, PROG #### [facility] , #### T4F, TRISTEN, TSH3, A1C WTH eA, FILIBERTO, GLU, T3F #### [facility] [address] [place] [address] Lymphocytes Auto (Bld) [#/Vo l]Ordered By: Delano Francis on 09-22-2024 Lymphocytes (Bld) [#/Vol] Lymphocytes [#/volume] in Blood by Automated count 1.00-4.8 [facility] Lymphocytes [#/volume] in Bl ood by Automated countOrdered By: Delano Francis on 09-22-2024 Lymphocytes (Bld) [#/Vol] 1.3 10*3/uL Normal 1.00-4.8 [facility] Comment on above: Performed By: #### D HEAS, LC T4, [id number], SEROTON, TEST F + T, T3R, THYGLOB AB, ESTRADIOL, TPO, SHBG, ESTRONE, INSULIN, PROG #### [facility] , #### T4F, TRISTEN, TSH3, A1C WTH eA, FILIBERTO, GLU, T3F #### [facility] [address] [place] [address] Lymphocytes/100 WBC Auto (Bl d)Ordered By: Delano Francis on 09-22-2024 Lymphocytes/100 WBC (Bld) Lymphocytes/100 leukocytes in Blood by Automated count . [facility] Lymphocytes/100 leukocytes i n Blood by Automated countOrdered By: Delano Francis on 09-22-2024 Lymphocytes/100 WBC (Bld) 25.3 % Normal . [facility] Comment on above: Performed By: #### D HEAS, LC T4, [id number], SEROTON, TEST F + T, T3R, THYGLOB AB, ESTRADIOL, TPO, SHBG, ESTRONE, INSULIN, PROG #### [facility] , #### T4F, TRISTEN, TSH3, A1C WTH eA, FILIBERTO, GLU, T3F #### [facility] [address] [place] [address] [place] MCH Auto (RBC) [Entitic mass ]Ordered By: Delano Francis on 09-22-2024 MCH (RBC) [Entitic mass] MCH [Entitic mass] by Automated count 24.7-34.3 [facility] MCH [Entitic mass] by Automa calvin countOrdered By: Delano Francis on 09-22-2024 MCH (RBC) [Entitic mass] 31.4 pg Normal 24.7-34.3 [facility] Comment on above: Performed By: #### D HEAS, LC T4, [id number], SEROTON, TEST F + T, T3R, THYGLOB AB, ESTRADIOL, TPO, SHBG, ESTRONE, INSULIN, PROG #### [facility] , #### T4F, TRISTEN, TSH3, A1C WTH eA, FILIBERTO, GLU, T3F #### [facility] [address] MCHC Auto (RBC) [Mass/Vol]Or dered By: Delano Francis on 09-22-2024 MCHC (RBC) [Mass/Vol] 34.2 g/dL 32.0-35.0 [facility] MCHC (RBC) [Mass/Vol] MCHC [Mass/volume] by Automated count 32.0-35.0 [facility] MCV Auto (RBC) [Entitic vol] Ordered By: Delano Francis on 09-22-2024 MCV (RBC) [Entitic vol] MCV [Entitic vol ume] by Automated count 80-100 [facility] MCV [Entitic volume] by Auto mated countOrdered By: Delano Francis on 09-22-2024 MCV (RBC) [Entitic vol] 91.7 fL Normal 80-100 [facility] Comment on above: Performed By: #### D HEAS, LC T4, [id number], SEROTON, TEST F + T, T3R, THYGLOB AB, ESTRADIOL, TPO, SHBG, ESTRONE, INSULIN, PROG #### [facility] , #### T4F, TRISTEN, TSH3, A1C WTH eA, FILIBERTO, GLU, T3F #### [facility] [address] Monocytes Auto (Bld) [#/Vol] Ordered By: Delano Francis on 09-22-2024 Monocytes (Bld) [#/Vol] Automated blood monocyte count 0.0-0.8 [facility] Monocytes/100 WBC Auto (Bld) Ordered By: Delano Francis on 09-22-2024 Monocytes/100 WBC (Bld) Automated monocyte % . [facility] Neutrophils Auto (Bld) [#/Vo l]Ordered By: Delano Francis on 09-22-2024 Neutrophils (Bld) [#/Vol] Neutrophils [#/volume] in Blood by Automated count 1.8-7.7 [facility] Neutrophils [#/volume] in Bl ood by Automated countOrdered By: Delano Francis on 09-22-2024 Neutrophils (Bld) [#/Vol] 3.2 10*3/uL Normal 1.8-7.7 [facility] Comment on above: Performed By: #### D HEAS, LC T4, [id number], SEROTON, TEST F + T, T3R, THYGLOB AB, ESTRADIOL, TPO, SHBG, ESTRONE, INSULIN, PROG #### [facility] , #### T4F, TRISTEN, TSH3, A1C WTH eA, FILIBERTO, GLU, T3F #### [facility] [address] Neutrophils/100 WBC Auto (Bl d)Ordered By: Delano Francis on 09-22-2024 Neutrophils/100 WBC (Bld) Automated neutrophil % . [facility] No Panel InformationOrdered By: Delano Francis on 09-22-2024 Estimated GFR (CKD-EPI) > 60.0 mL/Min [facility] Creatinine Clearance (Chem N/A [facility] Nucleated erythrocytes [Pres ence] in Blood by Automated countOrdered By: Delano Francis on 09-22-2024 Nucleated RBC Auto Ql (Bld) 0.0 /100{WBC} 0-0.5 [facility] Nucleated RBC Auto Ql (Bld) Nucleated erythrocytes [Presence] in Blood by Automated count 0-0.5 [facility] Platelet mean volume Auto (B ld) [Entitic vol]Ordered By: Delano Francis on 09-22-2024 Platelet mean volume (Bld) [Entitic vol] Platelet mean volume [Entitic volume] in Blood by Automated count 6.3-10.7 [facility] Platelet mean volume [Entiti c volume] in Blood by Automated countOrdered By: Delano Francis on 09-22-2024 Platelet mean volume (Bld) [Entitic vol] 7.3 fL Normal 6.3-10.7 [facility] Comment on above: Performed By: #### D HEAS, LC T4, [id number], SEROTON, TEST F + T, T3R, THYGLOB AB, ESTRADIOL, TPO, SHBG, ESTRONE, INSULIN, PROG #### [facility] , #### T4F, TRISTEN, TSH3, A1C WTH eA, FILIBERTO, GLU, T3F #### [facility] [address] [place] [address] [place] Platelets Auto (Bld) [#/Vol] Ordered By: Delano Francis on 09-22-2024 Platelets (Bld) [#/Vol] Platelets [#/vol ume] in Blood by Automated count 150-450 [facility] Platelets [#/volume] in Bloo d by Automated countOrdered By: Delano Francis on 09-22-2024 Platelets (Bld) [#/Vol] 328 10*3/uL Normal 150-450 [facility] Comment on above: Performed By: #### D HEAS, LC T4, [id number], SEROTON, TEST F + T, T3R, THYGLOB AB, ESTRADIOL, TPO, SHBG, ESTRONE, INSULIN, PROG #### [facility] , #### T4F, TRISTEN, TSH3, A1C WTH eA, FILIBERTO, GLU, T3F #### [facility] [address] [place] [address] [place] Potassium [Moles/volume] in Serum or PlasmaOrdered By: Delano Francis on 09-22-2024 Potassium [Moles/Vol] 4.5 mmol/L Normal 3.5-5.1 [facility] Comment on above: Performed By: #### D HEAS, LC T4, [id number], SEROTON, TEST F + T, T3R, THYGLOB AB, ESTRADIOL, TPO, SHBG, ESTRONE, INSULIN, PROG #### [facility] , #### T4F, TRISTEN, TSH3, A1C WTH eA, FILIBERTO, GLU, T3F #### [facility] [address] [place] [address] [place] Potassium [Moles/Vol] Potassium [Moles/v olume] in Serum or Plasma 3.5-5.1 [facility] RBC Auto (Bld) [#/Vol]Ordere d By: Delano Francis on 09-22-2024 RBC (Bld) [#/Vol] Erythrocytes [#/volu me] in Blood by Automated count 3.60-5.00 [facility] Serum or plasma anion gap de terminationOrdered By: Delano Francis on 09-22-2024 Anion gap [Moles/Vol] 8.3 mmol/L Normal 6.0-15.0 [facility] Comment on above: Performed By: #### D VENITA, LC T4, [id number], SEROTON, TEST F + T, T3R, THYGLOB AB, ESTRADIOL, TPO, SHBG, ESTRONE, INSULIN, PROG #### [facility] , #### T4F, TRISTEN, TSH3, A1C WTH eA, FILIBERTO, GLU, T3F #### [facility] [address] Anion gap [Moles/Vol] Serum or plasma an ion gap determination 6.0-15.0 [facility] Serum or plasma high density lipoprotein (HDL) cholesterol measurementOrdered By: Delano Francis on 09-22-2024 Cholesterol in HDL [Mass/Vol] 59 mg/dL Normal 23-92 [facility] Comment on above: HDL CHOL ATP-III CLA SSIFICATION Cardiovascular RiskHDL > or equal to 60 mg/dL LOWHDL < 40 mg/dL HIGH Result Comment: HDL CHOL ATP-III CLASSIFICATION Cardiovascular Risk HDL > or equal to 60 mg/dL LOW HDL < 40 mg/dL HIGH Performed By: #### D VENITA, LC T4, [id number], SEROTON, TEST F + T, T3R, THYGLOB AB, ESTRADIOL, TPO, SHBG, ESTRONE, INSULIN, PROG #### [facility] , #### T4F, TRISTEN, TSH3, A1C WTH eA, FILIBERTO, GLU, T3F #### [facility] [address] Serum or plasma total choles terol/high density lipoprotein (HDL) cholesterol mass ratOrdered By: Delano Francis on 09-22-2024 Cholesterol.total/Alivia sterol in HDL [Mass ratio] 3.7 {ratio} Normal <5.0 [facility] Comment on above: Performed By: #### D HEAS, LC T4, [id number], SEROTON, TEST F + T, T3R, THYGLOB AB, ESTRADIOL, TPO, SHBG, ESTRONE, INSULIN, PROG #### [facility] , #### T4F, TRISTEN, TSH3, A1C WTH eA, FILIBERTO, GLU, T3F #### [facility] [address] Cholesterol.total/Alivia sterol in HDL [Mass ratio] Serum or plasma total cholesterol/high density lipoprotein (HDL) cholesterol mass rat <5.0 [facility] Sodium [Moles/volume] in Ser um or PlasmaOrdered By: Delano Francis on 09-22-2024 Sodium [Moles/Vol] 138 mmol/L Normal 136-145 [facility] Comment on above: Performed By: #### D HEAS, LC T4, [id number], SEROTON, TEST F + T, T3R, THYGLOB AB, ESTRADIOL, TPO, SHBG, ESTRONE, INSULIN, PROG #### [facility] , #### T4F, TRISTEN, TSH3, A1C WTH eA, FILIBERTO, GLU, T3F #### [facility] [address] Sodium [Moles/Vol] Sodium [Moles/volume ] in Serum or Plasma 136-145 [facility] Thyrotropin [Units/volume] i n Serum or PlasmaOrdered By: Delano Francis on 09-22-2024 TSH Qn 2.30 m[IU]/L 0.45-5.33 [facility] TSH Qn Thyrotropin [Units/volume] in Serum or Plasma 0.45-5.33 [facility] Triglyceride [Mass/volume] i n Serum or PlasmaOrdered By: Delano Francis on 09-22-2024 Triglyceride [Mass/Vol] 52 mg/dL 0-149 [facility] Comment on above: TRIG ATP III CLASSIF ICATIONTRIG less than 150 mg/dL NormalTRIG 150-199 mg/dL Borderline highTRIG 200-500 mg/dL High TRIG greater than 500 mg/dL Very highStandard traceable to the Center for Disease Conrtrol and Prevention (CDC) test method. Triglyceride [Mass/Vol] Triglyceride [Mass/volume] in Serum or Plasma 0-149 [facility] Comment on above: TRIG ATP III CLASSIF ICATIONTRIG less than 150 mg/dL NormalTRIG 150-199 mg/dL Borderline highTRIG 200-500 mg/dL High TRIG greater than 500 mg/dL Very highStandard traceable to the Center for Disease Conrtrol and Prevention (CDC) test method. Urea nitrogen [Mass/volume] in Serum or PlasmaOrdered By: Delano Francis on 09-22-2024 Urea nitrogen [Mass/Vol] 9 mg/dL Normal 06-23 [facility] Comment on above: Performed By: #### D HESUE, JOSSE T4, [id number], SEROTON, TEST F + T, T3R, THYGLOB AB, ESTRADIOL, TPO, SHBG, ESTRONE, INSULIN, PROG #### [facility] , #### T4F, TRISTEN, TSH3, A1C WTH eA, FILIBERTO, GLU, T3F #### [facility] [address] Urea nitrogen [Mass/Vol] Urea nitrogen [Mass/volume] in Serum or Plasma 06-23 [facility] WBC Auto (Bld) [#/Vol]Ordere d By: Delano Francis on 09-22-2024 WBC (Bld) [#/Vol] Leukocytes [#/volume ] in Blood by Automated count 3.8-11.6 [facility] IGP,APTIMA HPV,AGE GDLNon AGE GDLN ACOG TESTING Note . [facility] Comment on above: TESTS RESULT FLAG U NITS REF RANGE LAB Clinician Provided Cytology Information Source.............Cervix;Endocervix No. of containers..01 ThinPrep Vial Age Algo ACOG Lara... FLAG LEGEND: L-Low Normal,H-High Normal,LL-Alert Low,HH-Alert High <-Panic Low,>-Panic High,A-Abnormal,AA-Critical Abnormal Performed at: 01 =[address] [id number] Ilana Heath MD, HPV APTIMA Negative Negative [facility] Comment on above: This nucleic acid am plification test detects fourteen high- risk HPV types (16,18,31,33,35,39,45,51,52,56,58,59,66,68) without differentiation. Performed at: =[address] [id number] On Site Services Specialist: Ilana Heath MD, Phone: [phone] Performed at: [address] [id number] On Site Services Specialist: Ilana Heath MD, Phone: [phone] IGP, APTIMA HPV, RFX 16/18,45 Note . [facility] Comment on above: TESTS RESULT FLAG UN ITS REF RANGE LAB DIAGNOSIS: 02 NEGATIVE FOR INTRAEPITHELIAL LESION OR MALIGNANCY. Specimen adequacy: 02 Satisfactory for evaluation. No endocervical component is identified. Performed by: 02 Chema Camargo Metal Stud Framer (ASCP) . 02 Note: Note 02 The [...] High,A-Abnormal,AA-Critical Abnormal Performed at: 02 [facility] [address] [id number] Ilana Heath MD, BRUSH-SPATULA CERVIX [facility] 1,25 Dihydroxy Vit D Calcitr olon 01-07-2024 1,25 Dihydroxy Vit D Calcitrol 56.6 pg/mL Normal 24.8-81.5 [facility] Comment on above: Result Comment: Perf ormed at: BN - [facility] [address] [id number] On Site Services Specialist: Quinton Wolf MD, Phone: [phone] Performed By: #### D VENITA, JOSSE T4, [id number], SEROTON, TEST F + T, T3R, THYGLOB AB, ESTRADIOL, TPO, SHBG, ESTRONE, INSULIN, PROG #### [facility] , #### T4F, TRISTEN, TSH3, A1C WTH eA, FILIBERTO, GLU, T3F #### [facility] [address] A1C with Estimated Average G luon 01-07-2024 Glucose [Mass/Vol] 105 mg/dL Normal [facility] Comment on above: Result Comment: PERF ORMED BY: [address] [place] [address] PATHOLOGIST TAX ACCOUNTANT JOSE GOEL M.D. Performed By: #### D VENITA, LC T4, [id number], SEROTON, TEST F + T, T3R, THYGLOB AB, ESTRADIOL, TPO, SHBG, ESTRONE, INSULIN, PROG #### [facility] , #### T4F, TRISTEN, TSH3, A1C WTH eA, FILIBERTO, GLU, T3F #### [address] Antithyroglobulin Abon 01-07 Antithyroglobulin Ab <1.0 Normal 0.0-0.9 [facility] Comment on above: Result Comment: Thyr oglobulin Antibody measured by [facility] Methodology Performed at: - [facility] [id number] On Site Services Specialist: Baudilio Leyva PhD, Phone: [phone] Performed By: #### D VENITA, LC T4, [id number], SEROTON, TEST F + T, T3R, THYGLOB AB, ESTRADIOL, TPO, SHBG, ESTRONE, INSULIN, PROG #### [facility] , #### T4F, TRISTEN, TSH3, A1C WTH eA, FILIBERTO, GLU, T3F #### [address] Cortisolon 01-07-2024 Cortisol 6.8 ug/dL Normal [facility] Comment on above: Result Comment: Refe rence range: AM 6 - 24 ug/dl PM <10 ug/dl [facility] Laboratory gravure press set up operator and method: rollApp DXI, POLYCLONAL ANTIBODY CORTISOL ASSAY. PERFORMED BY: [address] [place] [address] PATHOLOGIST TAX ACCOUNTANT JOSE GOEL M.D. Performed By: #### D HEAS, LC T4, [id number], SEROTON, TEST F + T, T3R, THYGLOB AB, ESTRADIOL, TPO, SHBG, ESTRONE, INSULIN, PROG #### [facility] , #### T4F, TRISTEN, TSH3, A1C WTH eA, FILBIERTO, GLU, T3F #### [facility] [address] [place] [id number] [facility] Dehydroepiandrosterone Sulfa teOrdered By: Deisy Villar on 01-07-2024 Dehydroepiandrosterone Sulfate 174.0 ug/dL Normal 84.8-378.0 [facility] Comment on above: Performed By: #### D HEAS, LC T4, [id number], SEROTON, TEST F + T, T3R, THYGLOB AB, ESTRADIOL, TPO, SHBG, ESTRONE, INSULIN, PROG #### [facility] , #### T4F, TRISTEN, TSH3, A1C WTH eA, FILIBERTO, GLU, T3F #### [facility] [address] [place] [id number] [facility] Estradiolon 01-07-2024 Estradiol 300.0 pg/mL Normal . [facility] Comment on above: Result Comment: Adul t Female Range Follicular phase 12.5 - 166.0 Ovulation phase 85.8 - 498.0 Luteal phase 43.8 - 211.0 Postmenopausal <6.0 - 54.7 1st trimester 215.0 - >4300.0 Elías ECLIA methodology Performed By: #### D HEAS, LC T4, [id number], SEROTON, TEST F + T, T3R, THYGLOB AB, ESTRADIOL, TPO, SHBG, ESTRONE, INSULIN, PROG #### [facility] , #### T4F, TRISTEN, TSH3, A1C WTH eA, FIILBERTO, GLU, T3F #### [facility] [address] [place] [id number] [facility] Estrone, Serumon 01-07-2024 Estrone, Serum 46 pg/mL Normal 27-231 [facility] Comment on above: Result Comment: Rang e Adult (Premenopausal) 27 - 231 Menstrual Cycle (1-10 days) 19 - 149 Menstrual Cycle (11-20 days) 32 - 176 Menstrual Cycle (21-30 days) 37 - 200 Performed at: [address] [id number] On Site Services Specialist: Quinton Wolf MD, Phone: [phone] Performed By: #### D VENITA, LC T4, [id number], SEROTON, TEST F + T, T3R, THYGLOB AB, ESTRADIOL, TPO, SHBG, ESTRONE, INSULIN, PROG #### [facility] , #### T4F, TRISTEN, TSH3, A1C WTH eA, FILIBERTO, GLU, T3F #### [facility] [address] [place] [address] [place] Ferritin [Mass/volume] in Se rum or PlasmaOrdered By: Deisy Villar on 01-07-2024 Ferritin [Mass/Vol] 44.8 ng/mL Normal 11.0-306.8 [facility] Comment on above: Performed By: #### D VENITA, LC T4, [id number], SEROTON, TEST F + T, T3R, THYGLOB AB, ESTRADIOL, TPO, SHBG, ESTRONE, INSULIN, PROG #### [facility] , #### T4F, TRISTEN, TSH3, A1C WTH eA, FILIBERTO, GLU, T3F #### [facility] [address] [place] [address] [place] Free testosterone measuremen t by LC-MS/MSOrdered By: Deisy Villar on 01-07-2024 Testosterone Free [Mass/Vol] 0.3 pg/mL 0.0-4.2 [facility] Comment on above: Performed at: [address] [id number] Director: Baudilio Leyva PhD, Phone: [phone] at: [address] [id number] Director: Quinton Wolf MD, Phone: [phone] Glucose [Mass/volume] in Ser um or PlasmaOrdered By: Deisy Villar on 01-07-2024 Glucose [Mass/Vol] 84 mg/dL Normal 70-100 [facility] Comment on above: ADA recommended refe rence rangeRandom Glucose Reference Range is dependent on time and content of last meal. Glucose of more than 200 mg/dL in a nonstressed, ambulatory subject supports the diagnosis of Diabetes Mellitus. Result Comment: [place] om Glucose Reference Range is dependent on time and content of last meal. Glucose of more than 200 mg/dL in a nonstressed, ambulatory subject supports the diagnosis of Diabetes Mellitus. ADA recommended reference range Performed By: #### D JOSSE NATHAN T4, [id number], SEROTON, TEST F + T, T3R, THYGLOB AB, ESTRADIOL, TPO, SHBG, ESTRONE, INSULIN, PROG #### [facility] , #### T4F, TRISTEN, TSH3, A1C WTH eA, FILIBERTO, GLU, T3F #### [facility] [address] Glucose mean value [Mass/vol ume] in Blood Estimated from glycated hemoglobinOrdered By: Deisy Villar on 01-07-2024 Average glucose Estimated from glycated hemoglobin (Bld) [Mass/Vol] 105 mg/dL [facility] Hemoglobin A1c percentageOrd ered By: Deisy Villar on 01-07-2024 HbA1c (Bld) [Mass fraction] 5.3 % Normal 4.3-5.6 [facility] Comment on above: Increased risk for d iabetes: 5.7 - 6.4diabetes: >6.4glycemic control for adults with diabetes: <7.0 Result Comment: Incr eased risk for diabetes: 5.7 - 6.4 diabetes: >6.4 glycemic control for adults with diabetes: <7.0 Performed By: #### D VENITA, JOSSE T4, [id number], SEROTON, TEST F + T, T3R, THYGLOB AB, ESTRADIOL, TPO, SHBG, ESTRONE, INSULIN, PROG #### [facility] , #### T4F, TRISTEN, TSH3, A1C WTH eA, FILIBERTO, GLU, T3F #### [facility] [address] Insulinon 01-07-2024 Insulin 4.5 u[iU]/mL Normal 2.6-24.9 [facility] Comment on above: Result Comment: Perf ormed at: [address] [id number] On Site Services Specialist: Baudilio Leyva PhD, Phone: [phone] Performed By: #### D HEAS, LC T4, [id number], SEROTON, TEST F + T, T3R, THYGLOB AB, ESTRADIOL, TPO, SHBG, ESTRONE, INSULIN, PROG #### [facility] , #### T4F, TRISTEN, TSH3, A1C WTH eA, FILIBERTO, GLU, T3F #### [address] [facility] Thyroxine (T4)on T4 [Mass/Vol] 8.2 ug/dL Normal 4.5-12.0 [facility] Comment on above: Performed By: #### D HEAS, LC T4, [id number], SEROTON, TEST F + T, T3R, THYGLOB AB, ESTRADIOL, TPO, SHBG, ESTRONE, INSULIN, PROG #### [facility] , #### T4F, TRISTEN, TSH3, A1C WTH eA, FILIBERTO, GLU, T3F #### [address] No Panel InformationOrdered By: Deisy Villar on 01-07-2024 Free Thyroxine (T4) Direct 8.2 ug/dL 4.5-12.0 [facility] Reverse Triiodothyronine (T3) 18.9 ng/dL 9.2-24.1 [facility] Comment on above: This test was develo ped and its performance characteristicsdetermined by [facility]. It has not been cleared orapproved by the Food and Drug Administration.Performed at: [address] [id number] Director: Quinton Wolf MD, Phone: [phone] Sex Hormone Binding Globulin 95.4 nmol/L 24.6-122.0 [facility] Comment on above: Performed at: [facility] [address] [place], [place] [id number] Director: Baudilio Leyva PhD, Phone: [phone] Plasma serotonin measurement (mass/volume)Ordered By: Deisy Villar on 01-07-2024 Serotonin (P) [Mass/Vol] 71 ng/mL [facility] Comment on above: This test was develo ped and its performance characteristicsdetermined by [facility]. It has not been cleared orapproved by the Food and Drug Administration.Performed at: [address] [id number] Director: Quinton Wolf MD, Phone: [phone] Progesteroneon 01-07-2024 Progesterone 0.2 ng/mL Normal . [facility] Comment on above: Result Comment: Foll icular phase 0.1 - 0.9 Luteal phase 1.8 - 23.9 Ovulation phase 0.1 - 12.0 First trimester 11.0 - 44.3 Second trimester 25.4 - 83.3 Third trimester 58.7 - 214.0 Postmenopausal 0.0 - 0.1 Performed By: #### D HEAS, LC T4, [id number], SEROTON, TEST F + T, T3R, THYGLOB AB, ESTRADIOL, TPO, SHBG, ESTRONE, INSULIN, PROG #### [facility] , #### T4F, TRISTEN, TSH3, A1C WTH eA, FILIBERTO, GLU, T3F #### [facility] [address] [place] [address] Random cortisol measurementO rdered By: Deisy Villar on 01-07-2024 Cortisol [Mass/Vol] 6.8 ug/dL [facility] Comment on above: [facility] gravure press set up operator and method:HELGA UNICEL DXI, POLYCLONAL ANTIBODY CORTISOL ASSAY.Reference range: AM 6 - 24 ug/dl PM <10 ug/dl Serotonin, Serumon 4 Serotonin, Serum 71 ng/mL Normal [facility] Comment on above: Result Comment: This test was developed and its performance characteristics determined by [email or web address]. It has not been cleared or approved by the Food and Drug Administration. Performed at: BN - [facility] [id number] On Site Services Specialist: Quinton Wolf MD, Phone: [phone] PERFORMED BY: [facility] [address] [place] [address] PATHOLOGIST TAX ACCOUNTANT JOSE GOEL M.D. Performed By: #### D HEAS, LC T4, [id number], SEROTON, TEST F + T, T3R, THYGLOB AB, ESTRADIOL, TPO, SHBG, ESTRONE, INSULIN, PROG #### [facility] , #### T4F, TRISTEN, TSH3, A1C WTH eA, FILIBERTO, GLU, T3F #### [facility] [address] Serum estrone measurementOrd ered By: Deisy Villar on 01-07-2024 E1 [Mass/Vol] 46 pg/mL 27-231 [facility] Comment on above: Range Adult (Premeno pausal) 27 - 231 Menstrual Cycle (1-10 days) 19 - 149 Menstrual Cycle (11-20 days) 32 - 176 Menstrual Cycle (21-30 days) 37 - 200Performed at: [employer] [facility] [address] [id number] Director: Quinton Wolf MD, Phone: [phone] Serum or plasma calcitriol m easurement (mass/volume)Ordered By: Deisy Villar on 01-07-2024 1,25-dihydroxyvitamin D3 [Mass/Vol] 56.6 pg/mL 24.8-81.5 [facility] Comment on above: Performed at: - [facility] [address] [id number] Director: Quinton Wolf MD, Phone: [phone] Serum or plasma estradiol (E 2) measurement (mass/volume)Ordered By: Deisy Villar on 01-07-2024 E2 [Mass/Vol] 300.0 pg/mL . [facility] Comment on above: Adult Female Range F ollicular phase 12.5 - 166.0 Ovulation phase 85.8 - 498.0 Luteal phase 43.8 - 211.0 Postmenopausal <6.0 - 54.7 1st trimester 215.0 - >4300.0Roche ECLIA methodology Serum or plasma insulin kevin urement (units/volume)Ordered By: Deisy Villar on 01-07-2024 Insulin Qn 4.5 u[iU]/mL 2.6-24.9 [facility] Comment on above: Performed at: [facility] [address] [id number] Director: Baudilio Leyva PhD, Phone: [phone] Serum or plasma progesterone measurement (mass/volume)Ordered By: Deisy Villar on 01-07-2024 Progesterone [Mass/Vol] 0.2 ng/mL . [facility] Comment on above: Follicular phase 0.1 - 0.9 Luteal phase 1.8 - 23.9 Ovulation phase 0.1 - 12.0 First trimester 11.0 - 44.3 Second trimester 25.4 - 83.3 Third trimester 58.7 - 214.0 Postmenopausal 0.0 - 0.1 Serum or plasma thyroglobuli n antibody assay (units/volume)Ordered By: Deisy Villar on 01-07-2024 Thyroglobulin Ab Qn [IU]/mL 0.0-0.9 [facility] Comment on above: Thyroglobulin Antibo dy measured by Helga CoulterMethodologyPerformed at: [facility] [address] [id number] Director: Baudilio Leyva PhD, Phone: [phone] Serum or plasma thyroperoxid ase antibody assay (units/volume)Ordered By: Deisy Villar on 01-07-2024 TPO Ab Qn [IU]/mL 0-34 [facility] Comment on above: Performed at: [facility] [address] [place] [id number] Director: Baudilio Leyva PhD, Phone: [phone] Sex Hormone Binding Globulin on 01-07-2024 Sex Hormone Binding Globulin 95.4 Normal 24.6-122.0 [facility] Comment on above: Result Comment: Perf ormed at: [facility] [place] [id number] [place], [place] [id number] On Site Services Specialist: Baudilio Leyva PhD, Phone: [phone] Performed By: #### D HEAS, LC T4, [id number], SEROTON, TEST F + T, T3R, THYGLOB AB, ESTRADIOL, TPO, SHBG, ESTRONE, INSULIN, PROG #### [facility] , #### T4F, TRISTNE, TSH3, A1C WTH eA, FILIBERTO, GLU, T3F #### [facility] [address] Testosterone Free and TotalO rdered By: Deisy Villar on 01-07-2024 Testosterone [Mass/Vol] 16 ng/dL Normal 8-60 [facility] Comment on above: Performed By: #### D HEAS, LC T4, [id number], SEROTON, TEST F + T, T3R, THYGLOB AB, ESTRADIOL, TPO, SHBG, ESTRONE, INSULIN, PROG #### [facility] , #### T4F, TRISTEN, TSH3, A1C WTH eA, FILIBERTO, GLU, T3F #### [facility] [address] [place] [address] [place] Testosterone Free and Totalo n 01-07-2024 Testosterone,Free 0.3 pg/mL Normal 0.0-4.2 [facility] Comment on above: Result Comment: Perf ormed at: - [facility] [id number] On Site Services Specialist: Baudilio Leyva PhD, Phone: [phone] Performed at: [facility] [id number] On Site Services Specialist: Quinton Wolf MD, Phone: [phone] Performed By: #### D HEAS, LC T4, [id number], SEROTON, TEST F + T, T3R, THYGLOB AB, ESTRADIOL, TPO, SHBG, ESTRONE, INSULIN, PROG #### [facility] , #### T4F, TRISTEN, TSH3, A1C WTH eA, FILIBERTO, GLU, T3F #### [address] Thyroid Peroxidase Antibodie son 01-07-2024 Thyroid Peroxidase Antibodies <9 Normal 0-34 [facility] Comment on above: Result Comment: Perf ormed at: - [facility] [address] [id number] On Site Services Specialist: Baudilio Leyva PhD, Phone: [phone] Performed By: #### D HEAS, LC T4, [id number], SEROTON, TEST F + T, T3R, THYGLOB AB, ESTRADIOL, TPO, SHBG, ESTRONE, INSULIN, PROG #### [facility] , #### T4F, TRISTEN, TSH3, A1C WTH eA, FILIBERTO, GLU, T3F #### [address] Thyrotropin [Units/volume] i n Serum or PlasmaOrdered By: Deisy Villar on 01-07-2024 TSH Qn 1.80 m[IU]/L Normal 0.45-5.33 [facility] Comment on above: Performed By: #### D HEAS, LC T4, [id number], SEROTON, TEST F + T, T3R, THYGLOB AB, ESTRADIOL, TPO, SHBG, ESTRONE, INSULIN, PROG #### [facility] , #### T4F, TRISTEN, TSH3, A1C WTH eA, FILIBERTO, GLU, T3F #### [facility] [address] [place] [address] Thyroxine (T4) free [Mass/vo lume] in Serum or PlasmaOrdered By: Deisy Villar on 01-07-2024 Free T4 [Mass/Vol] 0.88 ng/dL Normal 0.61-1.12 [facility] Comment on above: Performed By: #### D HEAS, LC T4, [id number], SEROTON, TEST F + T, T3R, THYGLOB AB, ESTRADIOL, TPO, SHBG, ESTRONE, INSULIN, PROG #### [facility] , #### T4F, TRISTEN, TSH3, A1C WTH eA, FILIBERTO, GLU, T3F #### [facility] [address] [place] [address] [place] Triiodothyronine (T3) Freeon 01-07-2024 Triiodothyronine (T3) Free 3.90 pg/mL Normal 2.50-3.90 [facility] Comment on above: Result Comment: PERF ORMED BY: [place] [address] PATHOLOGIST TAX ACCOUNTANT JOSE GOEL M.D. Performed By: #### Adria NATHNA, LC T4, [id number], SEROTON, TEST F + T, T3R, THYGLOB AB, ESTRADIOL, TPO, SHBG, ESTRONE, INSULIN, PROG #### [facility] , #### T4F, TRISTEN, TSH3, A1C WTH eA, FILIBERTO, GLU, T3F #### [facility] [address] [place] [id number] [place] Triiodothyronine (T3) Free [ Mass/volume] in Serum or PlasmaOrdered By: Deisy Villar on 01-07-2024 Free T3 [Mass/Vol] 3.90 pg/mL 2.50-3.90 [facility] Triiodothyronine (T3) Revers lonnie 01-07-2024 Triiodothyronine (T3) Reverse 18.9 ng/dL Normal 9.2-24.1 [facility] Comment on above: Result Comment: This test was developed and its performance characteristics determined by [facility]. It has not been cleared or approved by the Food and Drug Administration. Performed at: [address] [id number] On Site Services Specialist: Quinton Wolf MD, Phone: [phone] Performed By: #### Adria NATHAN, LC T4, [id number], SEROTON, TEST F + T, T3R, THYGLOB AB, ESTRADIOL, TPO, SHBG, ESTRONE, INSULIN, PROG #### [facility] , #### T4F, TRISTEN, TSH3, A1C WTH eA, FILIBERTO, GLU, T3F #### [facility] [address] [place] [id number] [place] Alanine aminotransferase [En zymatic activity/volume] in Serum or PlasmaOrdered By: Delano Francis on 09-17-2023 ALT [Catalytic activity/Vol] 20 U/L 7-52 [facility] Albumin [Mass/volume] in Ser um or Plasma by Bromocresol green (BCG) dye binding methoOrdered By: Delano Francis on 09-17-2023 Albumin BCG dye [Mass/Vol] 4.3 g/dL 3.5-5.7 [facility] Alkaline phosphatase [Enzyma tic activity/volume] in Serum or PlasmaOrdered By: Delano Francis on 09-17-2023 ALP [Catalytic activity/Vol] 62 U/L 34-104 [facility] Aspartate aminotransferase [ Enzymatic activity/volume] in Serum or PlasmaOrdered By: Delano Francis on 09-17-2023 AST [Catalytic activity/Vol] 22 U/L 13-39 [facility] Basophils Auto (Bld) [#/Vol] Ordered By: Delano Francis on 09-17-2023 Basophils (Bld) [#/Vol] 0.0 10*3/uL 0.0-0.2 [facility] Basophils/100 WBC Auto (Bld) Ordered By: Delano Francis on 09-17-2023 Basophils/100 WBC (Bld) 0.4 % . [facility] Bilirubin.total [Mass/volume ] in Serum or PlasmaOrdered By: Delano Francis on 09-17-2023 Bilirubin [Mass/Vol] 0.7 mg/dL 0.3-1.0 [facility] Calcium [Mass/volume] in Ser um or PlasmaOrdered By: Delano Francis on 09-17-2023 Calcium [Mass/Vol] 9.4 mg/dL 8.6-10.3 [facility] Carbon dioxide, total [Moles /volume] in Serum or PlasmaOrdered By: Delano Francis on 09-17-2023 CO2 [Moles/Vol] 26.2 mmol/L 21.0-31.0 [facility] Chloride [Moles/volume] in S stevo or PlasmaOrdered By: Delano Francis on 09-17-2023 Chloride [Moles/Vol] 102 mmol/L 98-107 [facility] Cholesterol [Mass/volume] in Serum or PlasmaOrdered By: Delano Francis on 09-17-2023 Cholesterol [Mass/Vol] 214 mg/dL 140-200 [facility] Comment on above: Chol less than 200 m g/dl low riskChol 201-239 mg/dl borderline riskChol 240 mg/dl and greater high risk Cholesterol in LDL Calc [Mas s/Vol]Ordered By: Delano Francis on 09-17-2023 Cholesterol in LDL [Mass/Vol] 161 mg/dL 0-100 [facility] Comment on above: LDL ATP III CLASSIFI CATIONLDL less than 100 mg/dL OptimalLDL 100-129 mg/dL Near or above optimalLDL 130-159 mg/dL Borderline highLDL 160-189 mg/dL HighLDL greater than 189 mg/dL Very high Cholesterol in VLDL Calc [Ma ss/Vol]Ordered By: Delano Francis on 09-17-2023 Cholesterol in VLDL [Mass/Vol] 9 mg/dL [facility] Creatinine [Mass/volume] in Serum or PlasmaOrdered By: Delano Francis on 09-17-2023 Creatinine [Mass/Vol] 0.79 mg/dL 0.60-1.20 [facility] Eosinophils Auto (Bld) [#/Vo l]Ordered By: Delano Francis on 09-17-2023 Eosinophils (Bld) [#/Vol] 0.1 10*3/uL 0.0-0.45 [facility] Eosinophils/100 WBC Auto (Bl d)Ordered By: Delano Francis on 09-17-2023 Eosinophils/100 WBC (Bld) 0.9 % . [facility] Erythrocyte distribution wid th Auto (RBC) [Ratio]Ordered By: Delano Francis on 09-17-2023 Erythrocyte distribution width (RBC) [Ratio] 12.4 % 11.9-15.3 [facility] Globulin Calc (S) [Mass/Vol] Ordered By: Delano Francis on 09-17-2023 Globulin (S) [Mass/Vol] 2.5 g/dL [facility] Glucose [Mass/volume] in Ser um or PlasmaOrdered By: Delano Francis on 09-17-2023 Glucose [Mass/Vol] 75 mg/dL 70-100 [facility] Hematocrit Auto (Bld) [Volum e fraction]Ordered By: Delano Francis on 09-17-2023 Hematocrit (Bld) [Volume fraction] 34.2 % 34.0-46.4 [facility] Hemoglobin [Mass/volume] in BloodOrdered By: Delano Francis on 09-17-2023 Hemoglobin (Bld) [Mass/Vol] 11.8 g/dL 11.8-15.4 [facility] Leukocytes [#/volume] correc calvin for nucleated erythrocytes in Blood by Automated counOrdered By: Delano Francis on 09-17-2023 WBC corrected for nucl RBC Auto (Bld) [#/Vol] 5.9 10*3/uL 3.8-11.6 [facility] Lymphocytes Auto (Bld) [#/Vo l]Ordered By: Delano Francis on 09-17-2023 Lymphocytes (Bld) [#/Vol] 1.8 10*3/uL 1.00-4.8 [facility] Lymphocytes/100 WBC Auto (Bl d)Ordered By: Delano Francis on 09-17-2023 Lymphocytes/100 WBC (Bld) 30.5 % . [facility] MCH Auto (RBC) [Entitic mass ]Ordered By: Delano Francis on 09-17-2023 MCH (RBC) [Entitic mass] 31.8 pg 24.7-34.3 [facility] MCHC Auto (RBC) [Mass/Vol]Or dered By: Delano Francis on 09-17-2023 MCHC (RBC) [Mass/Vol] 34.4 g/dL 32.0-35.0 [facility] MCV Auto (RBC) [Entitic vol] Ordered By: Delano Francis on 09-17-2023 MCV (RBC) [Entitic vol] 92.5 fL 80-100 [facility] Monocytes Auto (Bld) [#/Vol] Ordered By: Delano Francis on 09-17-2023 Monocytes (Bld) [#/Vol] 0.5 10*3/uL 0.0-0.8 [facility] Monocytes/100 WBC Auto (Bld) Ordered By: Delano Francis on 09-17-2023 Monocytes/100 WBC (Bld) 9.2 % . [facility] Neutrophils Auto (Bld) [#/Vo l]Ordered By: Delano Francis on 09-17-2023 Neutrophils (Bld) [#/Vol] 3.5 10*3/uL 1.8-7.7 [facility] Neutrophils/100 WBC Auto (Bl d)Ordered By: Delano Francis on 09-17-2023 Neutrophils/100 WBC (Bld) 59.0 % . [facility] No Panel InformationOrdered By: Delano Francis on 09-17-2023 Estimated GFR (CKD-EPI) > 60.0 mL/Min [facility] Creatinine Clearance (Chem N/A [facility] Nucleated erythrocytes [Pres ence] in Blood by Automated countOrdered By: Delano Francis on 09-17-2023 Nucleated RBC Auto Ql (Bld) 0.2 /100{WBC} 0-0.5 [facility] Platelet mean volume Auto (B ld) [Entitic vol]Ordered By: Delano Francis on 09-17-2023 Platelet mean volume (Bld) [Entitic vol] 8.1 fL 6.3-10.7 [facility] Platelets Auto (Bld) [#/Vol] Ordered By: Delano Francis on 09-17-2023 Platelets (Bld) [#/Vol] 250 10*3/uL 150-450 [facility] Potassium [Moles/volume] in Serum or PlasmaOrdered By: Delano Francis on 09-17-2023 Potassium [Moles/Vol] 4.0 mmol/L 3.5-5.1 [facility] Protein [Mass/volume] in Ser um or PlasmaOrdered By: Delano Francis on 09-17-2023 Protein [Mass/Vol] 6.8 g/dL 6.4-8.9 [facility] RBC Auto (Bld) [#/Vol]Ordere d By: Delano Francis on 09-17-2023 RBC (Bld) [#/Vol] 3.70 10*6/uL 3.60-5.00 [facility] Serum or plasma albumin/glob ulin mass ratioOrdered By: Delano Fracnis on 09-17-2023 Albumin/Globulin [Mass ratio] 1.7 {ratio} [facility] Serum or plasma anion gap de terminationOrdered By: Delano Francis on 09-17-2023 Anion gap [Moles/Vol] 10.8 mmol/L 6.0-15.0 [facility] Serum or plasma high density lipoprotein (HDL) cholesterol measurementOrdered By: Delano Francis on 09-17-2023 Cholesterol in HDL [Mass/Vol] 43 mg/dL 23- [facility] Comment on above: HDL CHOL ATP-III CLA SSIFICATION Cardiovascular RiskHDL > or equal to 60 mg/dL LOWHDL < 40 mg/dL HIGH Serum or plasma total choles terol/high density lipoprotein (HDL) cholesterol mass ratOrdered By: Delano Francis on 09-17-2023 Cholesterol.total/Alivia sterol in HDL [Mass ratio] 5.0 {ratio} <5.0 [facility] Sodium [Moles/volume] in Ser um or PlasmaOrdered By: Delano Francis on 09-17-2023 Sodium [Moles/Vol] 135 mmol/L 136-145 [facility] Thyrotropin [Units/volume] i n Serum or PlasmaOrdered By: Delano Francis on 09-17-2023 TSH Qn 1.04 m[IU]/L 0.45-5.33 [facility] Triglyceride [Mass/volume] i n Serum or PlasmaOrdered By: Delano Francis on 09-17-2023 Triglyceride [Mass/Vol] 48 mg/dL 0-149 [facility] Comment on above: TRIG ATP III CLASSIF ICATIONTRIG less than 150 mg/dL NormalTRIG 150-199 mg/dL Borderline highTRIG 200-500 mg/dL High TRIG greater than 500 mg/dL Very highStandard traceable to the Center for Disease Conrtrol and Prevention (CDC) test method. Urea nitrogen [Mass/volume] in Serum or PlasmaOrdered By: Delano Francis on 09-17-2023 Urea nitrogen [Mass/Vol] 7 mg/dL 7- [facility] WBC Auto (Bld) [#/Vol]Ordere d By: Delano Francis on 09-17-2023 WBC (Bld) [#/Vol] 5.9 10*3/uL 3.8-11.6 [facility] Mononucleosis Test, [place] 1 Heterophile Ab LA Ql (S) Negative [facility] Other Quick Strepon 09-26-2022 S. pyogenes Org specific cx Ql (Throat) Negative [facility] Encore Alert Other Quick Strep [employer] Other SARS-CoV-2 (COVID-19) RNA NA A+probe Ql (Resp)on 09-26-2022 SARS-CoV-2 (COVID-19) RNA ROB+probe Ql (Unsp spec) Negative [facility] [facility] Other PAP ACOG PANEL 2: 30 to 65on 09-01-2022 . . Normal [facility] Comment on above: Result Comment: Perf ormed at: WB Performed By: #### [id number] #### [facility] [address] [place] [address] Dr. Zonia Zhang Age Gdln ACOG Testing 30-65 Normal [facility] Comment on above: Performed By: #### [id number] #### [facility] [address] [address] [address] Zonia Zhang DIAGNOSIS: Comment [facility] Comment on above: Result Comment: NEGA TIVE FOR INTRAEPITHELIAL LESION OR MALIGNANCY. Performed at: WB Performed By: #### [id number] #### [facility] [address] [address] [address] Zonia Zhang HPV Aptima Negative Normal Negative [facility] Comment on above: Result Comment: This nucleic acid amplification test detects fourteen high-risk HPV types (16,18,31,33,35,39,45,51,52,56,58,59,66,68) without differentiation. Performed at: =G Performed By: #### [id number] #### [facility] [address] [address] [address] Zonia Zhang Methodology: Comment [facility] Comment on above: Result Comment: This liquid based ThinPrep(R) pap test was screened with the use of an image guided system. Performed at: WB Performed By: #### [id number] #### [facility] [address] [place] [address] Dr. Zonia Zhang Note: Comment Normal [facility] Comment on above: Result Comment: The Pap smear is a screening test designed to aid in the detection of premalignant and malignant conditions of the uterine cervix. It is not a diagnostic procedure and should not be used as the sole means of detecting cervical cancer. Both false-positive and false-negative reports do occur. . Performed at: WB Performed By: #### [id number] #### [facility] [address] [place] [address] Dr. Zonia Zhang Performed by: Comment Normal [facility] Comment on above: Result Comment: Negin Tomas, Metal Stud [employer]amer (ASCP) Performed at: WB Performed By: #### [id number] #### [facility] [address] [place] [address] Dr. Zonia Zhang Specimen adequacy: Comment Normal [facility] Comment on above: Result Comment: Sati sfactory for evaluation. Endocervical and/or squamous metaplastic cells (endocervical component) are present. Performed at: WB Performed By: #### [id number] #### [facility] [address] [place] [address] Dr. Zonia Zhang Basophils Auto (Bld) [#/Vol] Ordered By: Delano Francis on 08-07-2022 Basophils (Bld) [#/Vol] 0.0 10*3/uL 0.0-0.2 [facility] Basophils/100 WBC Auto (Bld) Ordered By: Delano Francis on 08-07-2022 Basophils/100 WBC (Bld) 0.5 % . [facility] Blood hemoglobin measurement (mass/volume)Ordered By: Delano Francis on 08-07-2022 Hemoglobin (Bld) [Mass/Vol] 12.7 g/dL 11.8-15.4 [facility] Blood leukocytes automated c ount (number/volume)Ordered By: Delano Francis on 08-07-2022 WBC (Bld) [#/Vol] 5.0 10*3/uL 4.5-11.0 [facility] Body fluid albumin measureme nt (mass/volume)Ordered By: Delano Francis on 08-07-2022 Albumin (Body fld) [Mass/Vol] 4.1 g/dL 3.2-5.5 [facility] Cholesterol [Mass/volume] in Serum or PlasmaOrdered By: Delano Francis on 08-07-2022 Cholesterol [Mass/Vol] 253 mg/dL 140-200 [facility] Comment on above: Chol less than 200 m g/dl low risk Chol 201-239 mg/dl borderline risk Chol 240 mg/dl and greater high risk Chol less than 200 m g/dl low riskChol 201-239 mg/dl borderline riskChol 240 mg/dl and greater high risk Cholesterol in LDL Calc [Mas s/Vol]Ordered By: Delano Francis on 08-07-2022 Cholesterol in LDL [Mass/Vol] 181 mg/dL 0-100 [facility] Comment on above: LDL ATP III [...] 08-07-2022 Cholesterol in VLDL [Mass/Vol] 12 mg/dL [facility] Creatinine and Glomerular fi ltration rate.predicted panel (S/P/Bld)Ordered By: Delano Francis on 08-07-2022 Creatinine [Mass/Vol] 0.76 mg/dL 0.44-1.03 [facility] Eosinophils Auto (Bld) [#/Vo l]Ordered By: Delano Francis on 08-07-2022 Eosinophils (Bld) [#/Vol] 0.1 10*3/uL 0.0-0.45 [facility] Eosinophils/100 WBC Auto (Bl d)Ordered By: Delano Francis on 08-07-2022 Eosinophils/100 WBC (Bld) 1.6 % . [facility] Erythrocyte distribution wid th Auto (RBC) [Ratio]Ordered By: Delano Francis on 08-07-2022 Erythrocyte distribution width (RBC) [Ratio] 12.6 % 11.9-15.3 [facility] Estimated glomerular filtrat ion rate (GFR) non- AmericanOrdered By: Delano Francis on 08-07-2022 GFR/1.73 sq M.predicted among non-blacks MDRD (S/P/Bld) [Vol rate/Area] > 60 mL/Min [facility] Globulin Calc (S) [Mass/Vol] Ordered By: Delano Francis on 08-07-2022 Globulin (S) [Mass/Vol] 2.3 g/dL [facility] Hematocrit Auto (Bld) [Volum e fraction]Ordered By: Delano Francis on 08-07-2022 Hematocrit (Bld) [Volume fraction] 37.5 % 34.0-46.4 [facility] - Chemistry and C hemistry - challengeOrdered By: Delano Francis on 08-07-2022 Glucose [Mass/Vol] 88 mg/dL 70-100 [facility] - Hematology and Cell countsOrdered By: Delano Francis on 08-07-2022 Nucleated RBC/100 WBC (Bld) [Ratio] 0.1 % 0-0.5 [facility] Lymphocytes Auto (Bld) [#/Vo l]Ordered By: Delano Francis on 08-07-2022 Lymphocytes (Bld) [#/Vol] 1.4 10*3/uL 1.00-4.8 [facility] Lymphocytes/100 WBC Auto (Bl d)Ordered By: Delano Francis on 08-07-2022 Lymphocytes/100 WBC (Bld) 28.1 % . [facility] MCH Auto (RBC) [Entitic mass ]Ordered By: Delano Francis on 08-07-2022 MCH (RBC) [Entitic mass] 31.8 pg 24.7-34.3 [facility] MCHC Auto (RBC) [Mass/Vol]Or dered By: Delano Francis on 08-07-2022 MCHC (RBC) [Mass/Vol] 33.8 g/dL 32.0-35.0 [facility] MCV Auto (RBC) [Entitic vol] Ordered By: Delano Francis on 08-07-2022 MCV (RBC) [Entitic vol] 94.3 fL 80-100 [facility] Monocyte %Ordered By: Delano Francis on 08-07-2022 Monocyte % 60 mg/dL 35-149 [facility] Comment on above: TRIG ATP III [...] 08-07-2022 Monocytes (Bld) [#/Vol] 0.5 10*3/uL 0.0-0.8 [facility] Monocytes/100 WBC Auto (Bld) Ordered By: Delano Francis on 08-07-2022 Monocytes/100 WBC (Bld) 10.1 % . [facility] Neutrophils Auto (Bld) [#/Vo l]Ordered By: Delano Francis on 08-07-2022 Neutrophils (Bld) [#/Vol] 3.0 10*3/uL 1.8-7.7 [facility] Neutrophils/100 WBC Auto (Bl d)Ordered By: Delano Francis on 08-07-2022 Neutrophils/100 WBC (Bld) 59.7 % . [facility] No Panel InformationOrdered By: Delano Francis on 08-07-2022 Estimated GFR () > 60 mL/Min [facility] Comment on above: GFR estimated refere nce range: According to KDOQI guidelines, <60 ml/min/1.73m2 is sufficient to diagnose a patient with chronic kidney disease. Nicotine Metabolite Negative Cutoff=25 [facility] Comment on above: Performed at: [facility] [address] [id number] Director: Quinton Wolf MD, Phone: [phone] Pharmacy Creatinine Clearance (Chem N/A [facility] Platelet mean volume Auto (B ld) [Entitic vol]Ordered By: Delano Francis on 08-07-2022 Platelet mean volume (Bld) [Entitic vol] 7.8 fL 6.3-10.7 [facility] Platelets Auto (Bld) [#/Vol] Ordered By: Delano Francis on 08-07-2022 Platelets (Bld) [#/Vol] 275 10*3/uL 150-450 [facility] Protein [Mass/volume] in Ser um or PlasmaOrdered By: Delano Francis on 08-07-2022 Protein [Mass/Vol] 6.4 g/dL 6.1-7.9 [facility] RBC Auto (Bld) [#/Vol]Ordere d By: Delano Francis on 08-07-2022 RBC (Bld) [#/Vol] 3.97 10*6/uL 3.60-5.00 [facility] Serum or plasma alanine troy otransferase measurement without P-5'-P (enzymatic activiOrdered By: Delano Francis on 08-07-2022 ALT No additional P-5'-P [Catalytic activity/Vol] 13 U/L 10-60 [facility] Serum or plasma albumin/glob ulin mass ratioOrdered By: Delano Francis on 08-07-2022 Albumin/Globulin [Mass ratio] 1.8 {ratio} [facility] Serum or plasma alkaline nova sphatase measurement (enzymatic activity/volume)Ordered By: Delano Francis on 08-07-2022 ALP [Catalytic activity/Vol] 52 U/L 32-92 [facility] Serum or plasma anion gap de terminationOrdered By: Delano Francis on 08-07-2022 Anion gap [Moles/Vol] 11.7 mmol/L 6.0-15.0 [facility] Serum or plasma aspartate am inotransferase measurement (enzymatic activity/volume)Ordered By: Delano Francis on 08-07-2022 AST [Catalytic activity/Vol] 15 U/L 10-42 [facility] Serum or plasma calcium kevin urement (mass/volume)Ordered By: Delano Francis on 08-07-2022 Calcium [Mass/Vol] 9.8 mg/dL 8.2-10.2 [facility] Serum or plasma chloride ra surement (moles/volume)Ordered By: Delano Francis on 08-07-2022 Chloride [Moles/Vol] 101 mmol/L 95-114 [facility] Serum or plasma high density lipoprotein (HDL) cholesterol measurementOrdered By: Delano Francis on 08-07-2022 Cholesterol in HDL [Mass/Vol] 60 mg/dL 35-85 [facility] Comment on above: HDL CHOL ATP-III CLA SSIFICATION Cardiovascular Risk HDL > or equal to 60 mg/dL LOW HDL < 40 mg/dL HIGH HDL CHOL ATP-III CLA SSIFICATION Cardiovascular RiskHDL > or equal to 60 mg/dL LOWHDL < 40 mg/dL HIGH Serum or plasma potassium me asurement (moles/volume)Ordered By: Delano Francis on 08-07-2022 Potassium [Moles/Vol] 4.4 mmol/L 3.5-5.1 [facility] Serum or plasma sodium measu rement (moles/volume)Ordered By: Delano Francis on 08-07-2022 Sodium [Moles/Vol] 136 mmol/L 136-146 [facility] Serum or plasma total biliru bin measurement (mass/volume)Ordered By: Delano Francis on 08-07-2022 Bilirubin [Mass/Vol] 1.0 mg/dL 0.3-1.2 [facility] Serum or plasma total carbon dioxide measurement (moles/volume)Ordered By: Delano Francis on 08-07-2022 CO2 [Moles/Vol] 27.7 mmol/L 22.0-30.0 [facility] Serum or plasma total choles terol/high density lipoprotein (HDL) cholesterol mass ratOrdered By: Delano Francis on 08-07-2022 Cholesterol.total/Alivia sterol in HDL [Mass ratio] 4.2 {ratio} <5.0 [facility] Serum or plasma urea nitroge n measurement (mass/volume)Ordered By: Delano Francis on 08-07-2022 Urea nitrogen [Mass/Vol] 9 mg/dL 08-22 [facility] TSH DL <= 0.005 mIU/L QnOrde red By: Delano Francis on 08-07-2022 TSH Qn 1.43 m[IU]/L 0.45-5.33 [facility] T3, TOTAL (TRIIODOTHYRONINE) on 06-07-2022 T3, TOTAL 88 ng/dL Normal 71-180 [facility] Comment on above: Performed By: #### T 3TOTAL #### [facility] [address] [place] [address] Dr. Zonia Zhang FREE T4on 06-06-2022 Free T4 [Mass/Vol] 0.94 ng/dL Normal 0.76-1.46 [facility] Comment on above: Performed By: #### F T4 #### [facility] [address] [place] [address] Dr. Zonia Zhang TSHon 06-06-2022 TSH 1.364 uIU/mL Normal 0.358-3.74 0 [facility] Comment on above: Performed By: #### T SH #### [facility] [address] [place] [address] Dr. Zonia Zhang COVID Quick Testingon 2021 Result Positive [employer] Other Quick Fluon 12-27-2021 FLUAV Ab CF (S) [Titer] Negative N [employer] Other FLUBV Ab CF (S) [Titer] Negative N [employer] Other Vital Signs Date Time Vital Sign Value Performing Clinician Facility 06-12-2025 14:21-0400 Body mass index (BMI) [Ratio] 35.73 kg/m2 Ángel Sita [employer] Work Phone: [facility] 06-12-2025 14:21-0400 Body weight 103.47 kg Ángel Sita DO Work Phone: [facility] 06-12-2025 14:21-0400 Diastolic blood pressure 70 mm[Hg] Ángel Sita DO Work Phone: [facility] 06-12-2025 14:21-0400 Systolic blood pressure 120 mm[Hg] Ángel Sita DO Work Phone: [facility] 05-30-2025 09:10-0400 Body mass index (BMI) [Ratio] 35.52 kg/m2 Ángel Sita DO Work Phone: [facility] 05-30-2025 09:10-0400 Body weight 102.88 kg Ángel Sita DO Work Phone: [facility] 05-30-2025 09:10-0400 Diastolic blood pressure 78 mm[Hg] Ángel Sita DO Work Phone: [facility] 05-30-2025 09:10-0400 Systolic blood pressure 120 mm[Hg] Ángel Sita DO Work Phone: [facility] 05-01-2025 08:36-0400 Body mass index (BMI) [Ratio] 34.43 kg/m2 Deisy MUNOZ Work Phone: [facility] 05-01-2025 08:36-0400 Body weight 99.7 kg Deisy MUNOZ Work Phone: [facility] 05-01-2025 08:36-0400 Diastolic blood pressure 74 mm[Hg] Deisy MUNOZ Work Phone: [facility] 05-01-2025 08:36-0400 Systolic blood pressure 118 mm[Hg] Deisy MUNOZ Work Phone: [facility] 03-30-2025 10:28-0400 Body mass index (BMI) [Ratio] 32.89 kg/m2 Ángel Sita DO Work Phone: [facility] 03-30-2025 10:28-0400 Body weight 95.25 kg Ángel Sita DO Work Phone: [facility] 03-30-2025 10:28-0400 Diastolic blood pressure 84 mm[Hg] Ángel Sita DO Work Phone: [facility] 03-30-2025 10:28-0400 Systolic blood pressure 120 mm[Hg] Ángel Sita DO Work Phone: [facility] 03-02-2025 09:58-0400 Body mass index (BMI) [Ratio] 31.76 kg/m2 Deisy Adithya PA Work Phone: [facility] 03-02-2025 09:58-0400 Body weight 91.99 kg Deisy Adithya PA Work Phone: [facility] 03-02-2025 09:58-0400 Diastolic blood pressure 72 mm[Hg] Deisy Adithya PA Work Phone: [facility] 03-02-2025 09:58-0400 Systolic blood pressure 120 mm[Hg] Deisy Adithya PA Work Phone: [facility] 02-02-2025 09:25-0500 Body mass index (BMI) [Ratio] 30.54 kg/m2 Ángel Sita DO Work Phone: [facility] 02-02-2025 09:25-0500 Body weight 88.45 kg Ángel Sita DO Work Phone: [facility] 02-02-2025 09:25-0500 Diastolic blood pressure 70 mm[Hg] Ángel Sita DO Work Phone: [facility] 02-02-2025 09:25-0500 Systolic blood pressure 120 mm[Hg] Ángel Sita DO Work Phone: [facility] 10-18-2024 11:19-0500 Body height 170.18 cm Robles Ball DO Work Phone: [facility] 10-18-2024 11:19-0500 Body mass index (BMI) [Ratio] 29.7 kg/m2 Robles Ball DO Work Phone: [facility] 10-18-2024 11:19-0500 Body weight 86.23 kg Robles Ball DO Work Phone: [facility] 10-18-2024 11:19-0500 Diastolic blood pressure 77 mm[Hg] Robles Ball DO Work Phone: [facility] 10-18-2024 11:19-0500 Heart rate 88 /min Robles Ball DO Work Phone: [facility] 10-18-2024 11:19-0500 Respiratory rate 12 /min Robles Ball DO Work Phone: [facility] 10-18-2024 11:19-0500 Systolic blood pressure 111 mm[Hg] Robles Ball DO Work Phone: [facility] 09-13-2024 14:28-0400 Body mass index (BMI) [Ratio] 28.79 kg/m2 Ángel Sita DO Work Phone: [facility] 09-13-2024 14:28-0400 Body weight 83.37 kg Ángel Sita DO Work Phone: [facility] 09-13-2024 14:28-0400 Diastolic blood pressure 70 mm[Hg] Ángel Sita DO Work Phone: [facility] 09-13-2024 14:28-0400 Systolic blood pressure 120 mm[Hg] Ángel Sita DO Work Phone: [facility] 05-03-2024 14:40-0400 Body height 170.18 cm [facility] 05-03-2024 14:40-0400 Body mass index (BMI) [Ratio] 28.3 kg/m2 [facility] 05-03-2024 14:40-0400 Body weight 82.1 kg [facility] 05-03-2024 14:40-0400 Diastolic blood pressure 82 mm[Hg] [facility] 05-03-2024 14:40-0400 Heart rate 78 /min [facility] 05-03-2024 14:40-0400 SaO2% (BldA) [Mass fraction] 98 % [facility] 05-03-2024 14:40-0400 Systolic blood pressure 122 mm[Hg] [facility] 01-06-2024 14:20-0500 Body height 170.2 cm Deisy Villar PA [facility] [facility] 01-06-2024 14:20-0500 Body mass index (BMI) [Ratio] 28.05 kg/m2 Deisy Alviso PA Work Phone: [facility] 01-06-2024 14:20-0500 Body weight 81.25 kg Deisy Alviso PA Work Phone: [facility] 01-06-2024 14:20-0500 Diastolic blood pressure 70 mm[Hg] Deisy Adithya PA Work Phone: [facility] 01-06-2024 14:20-0500 Systolic blood pressure 120 mm[Hg] Deisy Alviso PA Work Phone: [facility] 10-02-2023 10:00-0400 Body height 170.18 cm Robles Ball Other [employer] Other 10-02-2023 10:00-0400 Body mass index (BMI) [Ratio] 29.38 kg/m2 Robles Ball Other [employer] Other 10-02-2023 10:00-0400 Body weight 85.1 kg Robles Ball Other [employer] Other 10-02-2023 10:00-0400 Diastolic blood pressure 83 mm[Hg] Robles Ball Other [employer] Other 10-02-2023 10:00-0400 Respiratory rate 12 /min Robles Ball Other [employer] Other 10-02-2023 10:00-0400 Systolic blood pressure 131 mm[Hg] Robles Ball Other [employer] Other 01-22-2023 10:30-0500 Body height 170.18 cm Robles Ball Other [employer] Other 01-22-2023 10:30-0500 Body mass index (BMI) [Ratio] 29.91 kg/m2 Robles Ball Other [employer] Other 01-22-2023 10:30-0500 Body weight 86.64 kg Robles Ball Other [employer] Other 01-22-2023 10:30-0500 Diastolic blood pressure 72 mm[Hg] Robles Ball Other [employer] Other 01-22-2023 10:30-0500 Respiratory rate 16 /min Robles Ball Other [employer] Other 01-22-2023 10:30-0500 Systolic blood pressure 122 mm[Hg] Robles Ball Other [employer] Other 09-26-2022 16:10-0400 Body height 170.18 cm Kiya Schaffer Other [employer] Other 09-26-2022 16:10-0400 Body mass index (BMI) [Ratio] 29.29 kg/m2 Kiya Schaffer Other [employer] Other 09-26-2022 16:10-0400 Body temperature 98.8 [degF] Kiya Schaffer Other [employer] Other 09-26-2022 16:10-0400 Body weight 84.82 kg Kiya Schaffer Other [employer] Other 09-26-2022 16:10-0400 Diastolic blood pressure 73 mm[Hg] Kiya Schaffer Other [employer] Other 09-26-2022 16:10-0400 Respiratory rate 18 /min Kiya Schaffer Other [employer] Other 09-26-2022 16:10-0400 SaO2% (BldA) [Mass fraction] 97 % Kiya Schaffer Other [employer] Other 09-26-2022 16:10-0400 Systolic blood pressure 125 mm[Hg] Kiya Schaffer Other [employer] Other 12-27-2021 10:15-0500 Body height 170.18 cm Elsi Leyla Other [employer] Other 12-27-2021 10:15-0500 Body mass index (BMI) [Ratio] 28.19 kg/m2 Elsi Leyla Other [employer] Other 12-27-2021 10:15-0500 Body temperature 100.3 [degF] Elsi Leyla Other [employer] Other 12-27-2021 10:15-0500 Body weight 81.65 kg Elsi Leyla Other [employer] Other 12-27-2021 10:15-0500 Respiratory rate 18 /min Elsi Leyla Other [employer] Other 12-27-2021 10:15-0500 SaO2% (BldA) [Mass fraction] 98 % Elsi Leyla Other [employer] Other Encounters Encounter Date Encounter Type Care Provider Facility Start: 06-17-2025 End: 06-17-2025 Clinisync Result Encounter Ángel Sita DO Work Phone: [facility] Unsolicited Start: 06-17-2025 End: 06-17-2025 Clinisync Result Encounter Ángel Sita DO Work Phone: [facility] Unsolicited Start: 06-12-2025 End: 06-12-2025 flow sheet Ángel Sita DO Work Phone: [facility] Comment on above: Excessive grow [...] DO Work Phone: [facility] Start: 06-12-2025 End: 06-12-2025 Bamboo flowsheet Ángel Sita DO Work Phone: [facility] Start: 06-10-2025 End: 06-10-2025 Clinisync Result Encounter Ángel Sita DO Work Phone: [facility] Unsolicited Start: 06-10-2025 End: 06-10-2025 Clinisync Result Encounter Ángel Sita DO Work Phone: [facility] Unsolicited Start: 06-03-2025 End: 06-03-2025 Clinisync Result Encounter Ángel Sita DO Work Phone: [facility] Unsolicited Start: 06-03-2025 End: 06-03-2025 [...] Comment on above: Third trimester preg lai ([facility]); 29 weeks gestation of ([facility]); History of miscarriage; Multigravida of advanced maternal age in third trimester ([facility]) Start: 05-30-2025 End: 05-30-2025 ambulatory [...] 05-01-2025 flow sheet Deisy MUNOZ Work Phone: [facility] Comment on above: size inconsist [...] Start: 03-02-2025 End: 03-02-2025 Bamboo flowsheet Deisy MNUOZ Work Phone: [facility] Start: 03-02-2025 End: 03-09-2025 Bamboo flowsheet Deisy MUNOZ Work Phone: [facility] Start: 03-02-2025 End: 03-09-2025 Clinisync Result Encounter Deisy MUNOZ Work Phone: [facility] Unsolicited Start: 03-02-2025 End: 03-03-2025 External Result Encounter Deisy MUNOZ Work Phone: [facility] Unsolicited Start: 03-02-2025 End: 03-02-2025 Patient encounter procedure Deisy MUNOZ Work Phone: [facility] Start: 03-02-2025 End: 03-02-2025 Periodic preventive med est patient 18-39 yrs Deisy MUNOZ Work Phone: [facility] Comment on above: 17 weeks gestation o f ; Second trimester ; Well woman exam with routine gynecological exam; Screening, , for anatomic survey; Exposure to STD; Vaginal discharge; Heartburn; Allergy, sequela Start: 03-02-2025 End: 03-02-2025 ambulatory EDISY VILLAR Not Available Start: 02-02-2025 End: 02-02-2025 Bamboo flowsheet Ángel Sita DO Work Phone: [facility] Start: 02-02-2025 End: 02-02-2025 Bamboo flowsheet Ángel Sita DO Work Phone: [facility] Start: 02-02-2025 End: 02-02-2025 flow sheet Ángel Sita DO Work Phone: [facility] Comment on above: 13 weeks gestation o f ; Second trimester Start: 02-02-2025 End: 02-02-2025 ambulatory ÁNGEL SITA Not Available Start: 01-13-2025 End: 01-13-2025 Clinisync Result Encounter Ángel Sita DO Work Phone: [facility] External Department Unsolicited Start: 01-13-2025 End: 01-13-2025 Clinisync Result Encounter Ángel Sita DO Work Phone: [facility] External Department Unsolicited Start: 01-05-2025 End: 01-05-2025 ambulatory ÁNGEL SITA Not Available Start: 12-12-2024 End: 12-12-2024 Clinisync Result Encounter Ángel Sita DO Work Phone: [facility] External Department Unsolicited Start: 12-12-2024 End: 12-12-2024 Clinisync Result Encounter Ángel Sita DO Work Phone: [facility] External Department Unsolicited Start: 12-10-2024 End: 12-10-2024 Clinisync Result Encounter Ángel Sita DO Work Phone: [facility] Unsolicited Start: 12-10-2024 End: 12-10-2024 Clinisync Result Encounter Ángel Sita DO Work Phone: [facility] Unsolicited Start: 10-18-2024 End: 10-18-2024 ambulatory Robles Ball DO Work Phone: [facility] Work Phone: Start: 10-18-2024 End: 10-18-2024 Encounter for general adult medical examination without abnormal findings Robles Charles DO Work Phone: [facility] Start: 10-18-2024 End: 10-18-2024 Patient encounter procedure Robles Ball DO Work Phone: [facility] Work Phone: Start: 10-16-2024 Patient encounter status Jermaine min Ball DO Work Phone: [facility] Start: 10-14-2024 Non-patient / Non-visit Benjam in Ball DO Work Phone: [facility] Work Phone: Start: 09-22-2024 End: 09-22-2024 Departed Referred DO Robles Charles Work Phone: [facility] Start: 09-22-2024 End: 09-22-2024 ambulatory DO Robles Ball Work Phone: [facility] Work Phone: Start: 09-13-2024 End: 09-13-2024 Bamboo flowsheet Ángel Sita DO Work Phone: [facility] Start: 09-13-2024 End: 09-20-2024 Bamboo flowsheet Ángel Sita DO Work Phone: [facility] Start: 09-13-2024 End: 09-20-2024 Clinisync Result Encounter Ángel Sita DO Work Phone: [facility] Unsolicited Start: 09-13-2024 End: 09-13-2024 Patient encounter procedure Ángel Lestero DO Work Phone: [facility] Work Phone: Start: 09-13-2024 End: 09-13-2024 Periodic preventive med est patient 18-39 yrs Ángel Lestero DO Work Phone: [facility] Comment on above: Well woman exam with routine gynecological exam Start: 09-13-2024 End: 09-13-2024 ambulatory ÁNGEL LESTERO Not Available Start: 08-29-2024 End: 08-29-2024 ambulatory [facility] Work Phone: Start: 08-29-2024 End: 08-29-2024 Patient encounter procedure [facility] Work Phone: Start: 05-03-2024 End: 05-03-2024 ambulatory [facility] Work Phone: Start: 05-03-2024 End: 05-03-2024 Patient encounter procedure [facility] Work Phone: Start: 2024 End: 2024 ambulatory DO Robles Ball Work Phone: [facility] Work Phone: Start: 2024 End: 2024 Patient encounter procedure DO Robles Ball Work Phone: [facility] Work Phone: Start: 01-07-2024 End: 01-07-2024 Patient encounter procedure DO Robles Ball Work Phone: [facility] [place] Work Phone: Start: 01-07-2024 End: 01-07-2024 ambulatory DO Robles Ball Work Phone: [facility] Work Phone: Start: 01-06-2024 End: 01-06-2024 Office outpatient visit 15 minutes Deisy MUNOZ Work Phone: [facility] Comment on above: Encounter for weight management; Hormone disorder; 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 Start: 10-02-2023 End: 10-02-2023 ambulatory Robles Charles Other [employer] Other Start: 10-02-2023 Encounter for genera l adult medical examination without abnormal findings Robles Charles [facility] Start: 10-02-2023 Periodic preventive med est patient 18-39 yrs Robles Charles [facility] Start: 09-17-2023 End: 09-17-2023 ambulatory MD Liz Conteh Work Phone: [facility] Work Phone: Start: 09-17-2023 End: 09-17-2023 Departed Referred MD Liz Conteh Work Phone: [facility]-Employee Benefit Screening Start: 01-22-2023 End: 01-22-2023 ambulatory Robles Charles Other [employer] Other Start: 01-22-2023 Office outpatient vi sit 15 minutes Robles Charles [facility] Start: 01-12-2023 End: 01-12-2023 ambulatory Robles Charles Other [employer] Other Start: 01-12-2023 Telephone encounter Robles Charles [facility] Start: 12-24-2022 End: 12-24-2022 ambulatory Robles Charles Other [employer] Other Start: 12-24-2022 Office outpatient vi sit 15 minutes Robles Charles [facility] Start: 09-30-2022 End: 09-30-2022 ambulatory Kiya Schaffer Other [employer] Other Start: 09-30-2022 Telephone encounter Kiya Schaffer [facility] Urgent [facility] Start: 09-26-2022 End: 09-26-2022 Departed Referred MD Liz Conteh Work Phone: [facility] [place] Start: 09-26-2022 End: 09-26-2022 ambulatory MD Liz Conteh Work Phone: [facility] Work Phone: Start: 09-26-2022 Office outpatient vi sit 15 minutes Kiya Schaffer [facility] Start: 09-25-2022 ([facility] C Vac) [facility] Co vid Vaccine Subha [facility] Start: 09-25-2022 End: 09-25-2022 ambulatory MD Liz Conteh Work Phone: [facility] Work Phone: Start: 09-25-2022 End: 09-25-2022 Patient encounter procedure MD Liz Conteh Work Phone: [facility]ov[facility] Vaccine Off Site Start: 08-25-2022 End: 08-25-[address] ÁNGEL BUCKNER Facility:[facility] Start: 08-07-2022 End: 08-07-2022 Departed Referred MD Liz Conteh Work Phone: [facility]-Employee Benefit Screening Start: 06-06-2022 End: 06-07-[address] ROBLES CHARLES Facility:[facility] Start: 01-01-2022 End: 01-01-2022 ambulatory Elsi Mayer Other [employer] Other Start: 01-01-2022 Office outpatient vi sit 5 minutes Elsi Mayer [facility] Start: 12-27-2021 End: 12-27-2021 ambulatory Elsi Mayer Other [employer] Other Start: 12-27-2021 Office outpatient vi sit 15 minutes Elsiveronique Mayer [facility] Start: 08-23-2021 ([facility] C Vac) [facility] Co vid Vaccine Subha Fitt [facility] Procedures Date Procedure Procedure Detail Performing Clinician Start: 06-17-2025 US OB BPP W NON-STRESS Ángel Sita DO Work Phone: Start: 06-10-2025 US OB BPP W NON-STRESS Ángel Sita DO Work Phone: Start: 06-03-2025 US OB BPP W NON-STRESS Ángel Sita DO Work Phone: Start: 05-30-2025 Urnls dip stick/tabl et rgnt non-auto w/o micrscp Ángel Sita DO Work Phone: Start: 05-11-2025 US OB GROWTH Edson E [employer] Work Phone: Start: 04-18-2025 ALL CBC WITH [...] 09-13-2029 Screening for malignant neoplasm of cervix [facility] Start: 03-02-2028 Screening for malignant neoplasm of cervix Pap Smear [facility] Start: 09-19-2025 End: 09-19-2025 Patient encounter procedure 09/19/2025 8:30 AM EDT Office [address] [facility] [address] [place] [address] Ángel Buckner, DO [address] [place] [address] [facility] Start: 07-31-2025 Influenza vaccination [facility] Start: 07-10-2025 End: 07-10-2025 Patient encounter procedure 07/10/2025 1:50 PM EDT [facility] [address] [place] [id number] Ángel Buckner, DO [address] [place] [address] [facility] Start: 06-26-2025 End: 06-26-2025 Patient encounter procedure 06/26/2025 1:10 PM EDT Routine [facility] [address] [place] [phone] Ángel Buckner, DO [address] [place] [address] [facility] Start: 06-26-2025 End: 06-26-2025 Professional / ancillary services management 06/26/2025 11:30 AM EDT Ancillary Procedure [facility] [address] [place] [address] [facility] Start: 06-19-2025 Screening for malignant neoplasm of cervix [facility] Start: 06-12-2025 End: 06-12-2025 Patient encounter procedure [facility] Comment on above: Arrived Start: 06-12-2025 End: 10-13-2025 US for US OB follow up transabdominal approach Imaging Routine Excessive growth affecting management of in third trimester, single or unspecified fetus ([facility]) Expected: 06/12/2025, Expires: 10/13/2025 [facility] Work Phone: Comment on above: Expected: 06/12/2025, Expires: Start: 05-30-2025 End: 11-30-2025 US biophysical profile w non stress test US biophysical profile w non stress test Imaging Routine History of miscarriage Multigravida of advanced maternal age in third trimester ([facility]) Expected: 05/30/2025 (Approximate), Expires: 11/30/2025 [facility] [...] [facility] [address] [place] [address] [facility] Start: 04-03-2025 End: 04-03-2025 Patient encounter procedure 04/03/2025 9:50 AM EDT Routine [facility] [address] [place] [address] Ángel Buckner, DO [address], [place] [id number] [facility] Start: 04-03-2025 End: 04-03-2025 Professional / ancillary services management 04/03/2025 8:00 AM EDT Ancillary Procedure [facility] [address] [place] [address] [facility] Start: 03-30-2025 End: 03-30-2026 CBC panel - Blood by Automated count CBC Lab Routine Second trimester Diabetes mellitus screening Expected: 03/30/2025 (Approximate), Expires: 03/30/2026 [facility] Work Phone: Comment on above: [...] AM EDT Routine [facility] [address] [place] [address] Deisy Villar PA [address] [place] [address] Arrived [facility] Comment on above: Arrived Start: 02-02-2025 End: 02-02-2025 Patient encounter procedure [facility] Comment on above: Arrived Start: 01-05-2025 End: 01-05-2025 ambulatory 01/05/2025 1:30 PM EST Initial [facility] [address] [facility] [facility] [place] [address] [facility] Start: 01-05-2025 End: 01-05-2025 Professional / ancillary services management 01/05/2025 1:00 PM EST Ancillary Procedure [facility] [address] [place] [id number] [facility] Start: 09-13-2024 End: 09-13-[address] [facility] Comment on above: Arrived Start: 07-31-2024 Influenza vaccination Influenza Vaccine (#1) [facility] Start: 02-03-2024 End: 02-03-2024 Patient encounter procedure 02/03/2024 1:50 PM EST Office Visit [facility] [address] [place] [phone] Deisy Villar PA [address] [place], [place] [id number] [facility] Start: 01-07-2024 Dehydroepiandrosterone sulfate level [facility] Start: 01-07-2024 Sex hormone binding globulin measurement [facility] Start: 01-07-2024 T3 reverse measurement [facility] Start: 01-07-2024 Thyroxine measurement [facility] Start: 01-07-2024 [facility] Start: 01-06-2024 End: 01-06-2025 Anti-thyroglobulin antibody Anti-thyroglobulin antibody Lab Routine Hormone disorder Expected: 01/06/2024 (Approximate), Expires: 01/06/2025 [facility] Comment on above: Expected: 01/06/2024 (Approximate), Expi res: 01/06/2025 Start: 01-06-2024 End: 01-06-2025 C-peptide C-peptide Lab Routine Hormone disorder Expected: 01/06/2024 (Approximate), Expires: 01/06/2025 [facility] Comment on above: Expected: 01/06/2024 (Approximate), Expi res: 01/06/2025 Start: 01-06-2024 End: 01-06-2025 Cortisol free Cortisol, free Lab Routine Hormone disorder Expected: 01/06/2024 (Approximate), Expires: 01/06/2025 [facility] Comment on above: Expected: 01/06/2024 (Approximate), Expi res: 01/06/2025 Start: 01-06-2024 End: 01-06-2025 Glucose [Mass/volume] in Serum or Plasma Glucose, random Lab Routine Hormone disorder Expected: 01/06/2024 (Approximate), Expires: 01/06/2025 [facility] Comment on above: Expected: 01/06/2024 (Approximate), Expi res: 01/06/2025 Start: 01-06-2024 End: 01-06-2025 Insulin, total Insulin, total Lab Routine Hormone disorder Expected: 01/06/2024 (Approximate), Expires: 01/06/2025 [facility] Comment on above: Expected: 01/06/2024 (Approximate), Expi res: 01/06/2025 Start: 01-06-2024 End: 01-06-2025 Serotonin serum Serotonin serum Lab Routine Hormone disorder Expected: 01/06/2024 (Approximate), Expires: 01/06/2025 [facility] Comment on above: Expected: 01/06/2024 (Approximate), Expi res: 01/06/2025 Start: 01-06-2024 End: 01-06-2025 Thyroglobulin Thyroglobulin Lab Routine Hormone disorder Expected: 01/06/2024 (Approximate), Expires: 01/06/2025 [facility] Comment on above: Expected: 01/06/2024 (Approximate), Expi res: 01/06/2025 Start: 01-06-2024 End: 01-06-2025 Thyrotropin [Units/volume] in Serum or Plasma [facility] Comment on above: Ordered: 01/06/2024 Expected: 01/06/2024 (Approximate), Expires: 01/06/2025 Start: 09-17-2023 [facility] Start: 08-07-2022 [facility] Work Phone: Calcitriol [Mass/vol ume] in Serum or Plasma [facility] CHLAMYDIA TRACHOMATI S (GENITO/STI) CHLAMYDIA TRACHOMATIS (GENITO/STI) Lab Routine Exposure to STD Ordered: 03/02/2025 [facility] Comment on above: Ordered: 03/02/2025 Cytology Cervical or vaginal smear or scraping study Pap Smear Pathology and Cytology Routine Well woman exam with routine gynecological exam Ordered: 09/13/2024 [facility] Work Phone: Comment on above: Ordered: 09/13/2024 Cytology Cervical or vaginal smear or scraping study Pap Smear Pathology and Cytology Routine Well woman exam with routine gynecological exam Ordered: 03/02/2025 [facility] Comment on above: Ordered: 03/02/2025 DHEA-sulfate DHEA-sulfate Lab Routine Hormone disorder Ordered: 01/06/2024 [facility] Comment on above: Ordered: 01/06/2024 Estradiol Estradiol Lab Ro utine Hormone disorder Ordered: 01/06/2024 [facility] Work Phone: Comment on above: Ordered: 01/06/2024 Estradiol (E2) [Mass /volume] in Serum or Plasma [facility] Estrone Estrone Lab Rout ine Hormone disorder Ordered: 01/06/2024 [facility] Comment on above: Ordered: 01/06/2024 Estrone (E1) [Mass/v olume] in Serum or Plasma [facility] Ferritin [Mass/volum e] in Serum or Plasma Ferritin Lab Routine Hormone disorder Ordered: 01/06/2024 [facility] Comment on above: Ordered: 01/06/2024 Hemoglobin A1c measurement Hemog lobin A1c Lab Routine Hormone disorder Ordered: 01/06/2024 [facility] Comment on above: Ordered: 01/06/2024 Human papilloma viru s DNA [Presence] in Unspecified specimen by Probe with amplification HPV DNA probe, amplified Microbiology Routine Well woman exam with routine gynecological exam Ordered: 09/13/2024 [facility] Comment on above: Ordered: 09/13/2024 Human papilloma viru s DNA [Presence] in Unspecified specimen by Probe with amplification HPV DNA probe, amplified Microbiology Routine Well woman exam with routine gynecological exam Ordered: 03/02/2025 [facility] Comment on above: Ordered: 03/02/2025 Insulin [Units/volum e] in Serum or Plasma [facility] Neisseria gonorrhoea e DNA [Presence] in Unspecified specimen by ROB with probe detection Neisseria gonorrhea DNA probe, direct Lab Routine Exposure to STD Ordered: 03/02/2025 [facility] Comment on above: Ordered: 03/02/2025 Progesterone Progesterone Lab Routine Hormone disorder Ordered: 01/06/2024 [facility] Comment on above: Ordered: 01/06/2024 Progesterone [Mass/v olume] in Serum or Plasma [facility] Serotonin [Mass/volu me] in Plasma [facility] Sex hormone binding globulin Sex hormone binding globulin Lab Routine Hormone disorder Ordered: 01/06/2024 [facility] Comment on above: Ordered: 01/06/2024 SURESWAB(R) ADVANCED VAGINITIS PLUS, TMA SURESWAB(R) ADVANCED VAGINITIS PLUS, TMA Pathology and Cytology Routine Vaginal discharge Ordered: 03/02/2025 [facility] Work Phone: Comment on above: Ordered: 03/02/2025 T3, reverse T3, reverse Lab Routine Hormone disorder Ordered: 01/06/2024 [facility] Comment on above: Ordered: 01/06/2024 Testosterone Free [Mass/volume] in Serum or Plasma [facility] TESTOSTERONE, FREE TESTOSTERONE, FREE Lab Routine Hormone disorder Ordered: 01/06/2024 [facility] Comment on above: Ordered: 01/06/2024 Testosterone, free, total Testos terone, free, total Lab Routine Hormone disorder Ordered: 01/06/2024 [facility] Comment on above: Ordered: 01/06/2024 Throat culture Throat Culture [facility] Thyroglobulin Ab [Units/volume] in Serum or Plasma [facility] Thyroid peroxidase antibody Thyr oid peroxidase antibody Lab Routine Hormone disorder Ordered: 01/06/2024 [facility] Comment on above: Ordered: 01/06/2024 Thyroperoxidase Ab [Units/volume] in Serum or Plasma [facility] Thyroxine (T4) free [Mass/volume] in Serum or Plasma T4, free Lab Routine Hormone disorder Ordered: 01/06/2024 [facility] Comment on above: Ordered: 01/06/2024 Triiodothyronine (T3 ) Free [Mass/volume] in Serum or Plasma T3, free Lab Routine Hormone disorder Ordered: 01/06/2024 [facility] Comment on above: Ordered: 01/06/2024 Vitamin D 1,25 dihydroxy Vitamin D 1,25 dihydroxy Lab Routine Hormone disorder Ordered: 01/06/2024 [facility] Comment on above: Ordered: 01/06/2024 [facility] Work Phone: Immunizations Immunization Date Immunization Notes Care Provider Fa cili 09-15-2023 influenza, injectabl e, quadrivalent, preservative free [facility] 09-15-2023 influenza virus vaccine, unspecified formulation Ángel Buckner DO Work Phone: [facility] 09-25-2022 COVID-19 Moderna (BIvalent) Kiya Schaffer Other [facility] 08-23-2021 COVID-19 Pfizer Subha Fitt Other [facility] 07-31-2021 COVID-19 Pfizer Subha Fitt Other [facility] 05-19-2021 diphtheria, tetanus toxoids and pertussis vaccine [facility] Payers Date Payer Category Payer Self-pay [id number] 2022 Private Health Insurance [employer] [id number] 2022 Unknown [employer] [id number] 2022-Present [phone] 1990 Unknown [id number] .[id number] .593 1990 Unknown [id number] .[id number] .593 1990 Unknown [id number] 2.16.840.1.042726.3.579.2 .9 1990 Unknown [id number] 2.16.840.1.230116.3.579.2 .1258 1990 Unknown [id number] 2.16.840.1.618878.3.579.2 .1258 1990 Unknown [id number] 2.16.840.1.175192.3.579.2 .1258 1990 Unknown [id number] 2.16.840.1.247674.3.579.2 .1258 1990 Unknown [id number] 2.16.840.1.700382.3.579.2 .1258 1990 Unknown [id number] 2.16.840.1.690579.3.579.2 .1258 1990 Unknown [id number] 2.16.840.1.245822.3.579.2 .1258 1990 Unknown [id number] 2.16.840.1.336569.3.579.2 .1258 1990 Unknown [id number] 2.16.840.1.938326.3.579.2 .9 1959 Unknown [id number] 2.16.840.1.451266.19 Unknown [id number] 2.16.840.1.219240.3.579.2 .531 Unknown [id number] 2.16.840.1.147790.3.579.2 .531 Worker's Compensation [facility] [place] [id number] Social History Date Type Detail Facility Start: 10-13-2023 End: 09-13-2024 Sex Assigned At [facility] Start: 1990 Sex Assigned At Female [facility] Start: 08-13-2023 End: 05-03-2024 Tobacco smoking status TNIS Never smoked tobacco [facility] Start: 01-06-2024 End: 06-12-2025 Alcohol intake [...] [facility] Start: 10-18-2024 Sex Female (finding) [facility] Start: 11-16-2024 [facility] Clinical Notes 08-23-2021 to 06-12-2025 ALEXANDER Gramajo - 06/12/2025 2:10 PM Barbara Charlton, COBOL APPLICATION DEVELOPER - 05/30/2025 8:50 AM Margaret Dewitt NP - 05/01/2025 8:30 AM Joselito Kearney COBOL APPLICATION DEVELOPER - 03/30/2025 10:10 AM EDT Note Date [...] in third trimester, single or unspecified fetus ([facility]) O36.63X0 OB follow up transabdominal approach 2. 31 weeks gestation of ([facility]) Z3A.31 POCT urinalysis dipstick manually resulted 3. Third trimester ([facility]) Z34.93 POCT urinalysis dipstick manually resulted 4. History of miscarriage Z87.59 5. Multigravida of advanced maternal age in third trimester ([facility]) O09.523 Return OB: Patient presents today [...] Ángel Buckner DO documented in this encounter [facility] 05-30-2025 History of Presen [...] nursing note reviewed. Exam conducted with a compressor battery pellets present. Vitals: Estimated body mass index is 35.52 kg/m as calculated from the following: Height as of 01/06/24: 5' 7 . Weight as of this encounter: 226 lb 12.8 oz. BP: 120/78 Patient's last menstrual period was 11/02/2024. ASSESSMENT & PLAN ICD-10-CM 1. Third trimester ([facility]) Z34.93 POCT urinalysis dipstick manually resulted 2. 29 weeks gestation of ([facility]) Z3A.29 POCT urinalysis dipstick manually resulted 3. History of miscarriage Z87.59 4. Multigravida of advanced maternal age in third trimester ([facility]) O09.523 Return OB: Patient presents today [...] Ángel Buckner DO documented in this encounter [facility] 05-01-2025 History of Presen [...] nursing note reviewed. Exam conducted with a compressor battery pellets present. Vitals: Estimated body mass index is [...] Edson Dewitt NP documented in this encounter [facility] 03-30-2025 History of Presen [...] nursing note reviewed. Exam conducted with a compressor battery pellets present. Vitals: Estimated body mass index is [...] Ángel Buckner DO documented in this encounter [facility] 03-02-2025 History of Presen [...] nursing note reviewed. Exam conducted with a compressor battery pellets present. Vitals: Estimated body mass index is [...] of: ALEXANDER Gramajo documented in this encounter [facility] 02-02-2025 History of Presen [...] Ángel Buckner DO documented in this encounter [facility] 09-13-2024 History of Presen [...] nursing note reviewed. Exam conducted with a compressor battery pellets present. Vitals: Estimated body mass index is [...] Ángel Buckner DO documented in this encounter [facility] 01-06-2024 History of Presen [...] Diagnosis Date Fatigue GARTH (generalized anxiety disorder) ([facility]) Hyperlipidemia ([facility]) Paronychia, finger Family History Problem [...] of: ALEXANDER Gramajo documented in this encounter [facility] 10-02-2023 Evaluation note Encounter [...] prior to bedtime. Weight loss. Pepcid PRN [facility] Other 2023 Evaluation note* Encounter Date Diagnosis Assessment Notes Treatment Notes Treatment Clinical Notes Dec, Nasal turbinate hypertrophy (ICD-10 - J34.3) FLonase, saline NS, Sudafed and avoid use of Afin. Refer to ENT. Dec, Nonallergic vasomotor rhinitis (ICD-10 - J30.0) Prednisone tapered over 8 days. Claritin as needed. [facility] Other 02-13-2023 Evaluation note* Encounter Date Diagnosis Assessment Notes Treatment Notes Treatment Clinical Notes Dec, Acute non-recurrent maxillary sinusitis (ICD-10 - J01.00) [facility] Other 01-25-2023 Evaluation note* Encounter Date Diagnosis Assessment Notes Treatment Notes Treatment Clinical Notes Nov, Acute non-recurrent maxillary sinusitis (ICD-10 - J01.00) Instructed to use Robitussin or Mucinex for cough, saline or Flonase NS for congestion, Tylenol for pain and fever. [facility] Other 10-28-2022 Evaluation note* Encounter Date Diagnosis [...] (suspected) exposure to covid-19 (ICD-10 - Z20.822) [facility] Other 10-27-2022 Evaluation note* Encounter Date Diagnosis Assessment Notes Treatment Notes Treatment Clinical Notes Aug, Encounter for immunization (ICD-10 - Z23) Patient presents today for COVID-19 vaccination booster. Patient pre-vaccination form answers reviewed. Patient denies current illness or allergic reaction to any component of a COVD-19 vaccine. Patient provided with copy of current EUA. [facility] Other 02-02-2022 Evaluation note* Encounter Date Diagnosis [...] Patient care instructions given in writting by [facility] Care At Home document. Additional time spent conducting pre-visit phone call, screening for symptoms, instructions on social distancing, application and removal of PPE, and cleaning of examination room, equipment and supplies was preformed. Patient education given for testing methodology and results. Patient care instructions given in writting by [facility] Care At Home document. [facility] [facility] Other 01-28-2022 Evaluation note* Encounter Date Diagnosis [...] Patient care instructions given in writting by [facility] Care At Home document. [facility] Other 09-24-2021 Evaluation note* Encounter Date Diagnosis Assessment Notes Treatment Notes Treatment Clinical Notes Jul, Encounter for immunization (ICD-10 - Z23) Patient presents for COVID-19 vaccination #2. Pre-screening form answers evaluated with patient. Patient denies current illness or allergic reaction to component of COVID-19 vaccine. Patient provided with current copy of EUA. [facility] Other Evaluation noteNo assessment information available [facility] Work Phone: Evlmtation noteNo InformationNort [email or web address] Other Evaluation note* Diagnosis Encounter for weight management Hormone disorder Unspecified endocrine disorder 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 [facility] Diagnosis Well woman exam with routine gynecological exam Routine gynecological examination [facility]* Diagnosis Onset Date Resolution Status Admit Date Hypercholesteremia acute Novemb er 2023 11:13am Wellness examination acute Nove mber 2023 11:13am [facility] Work Phone: Evwrpation note* Diagnosis 13 weeks gestation of Second [...] encounter [facility]* Diagnosis Third trimester ([facility]) state, incidental 29 weeks gestation of ([facility]) History of miscarriage Personal history of other genital system and obstetric disorders Multigravida of advanced maternal age in third trimester ([facility]) [facility]* Diagnosis Excessive growth affecting management of in third trimester, single or unspecified fetus ([facility])- Primary 31 weeks gestation of ([facility]) Third trimester ([facility]) state, incidental History of miscarriage Personal history of other genital system and obstetric disorders Multigravida of advanced maternal age in third trimester ([facility]) documented in this [facility] Narrative - Reported* Type Description Date Medical History Child X2 Natural Surgical History No know Surgical history Hospitalization History see above [facility] Other History general Narrative - Reported* Type Description Date Medical History Child X2 Natural Surgical History No Surgical history information Hospitalization History see above [facility] Other History general Narrative - Reported* Type Description Date Medical History Child X2 Natural Medical History Body mass index (BMI) of 25.0 to 29.9 Medical History Fatigue Medical History Hyperlipidemia, group A Medical History GARTH (generalized anxiety disorde r) Surgical History No know Surgical history Hospitalization History No know Hospitalization history [facility] Other Chief Complaint and Reason for Visit [...] Nasal turbinate hype rtrophy (J34.3) Referral Organization [facility] Nela russo Referring Provider First Name Robles Referring Provider Last Name Nela Referring Provider Specialty Internal Me dicine Referred Organization [facility] Referred Provider Robles Hernandez Referred Address ,[place], [place],[address] Referred Provider Specialty Otolaryngolo gy Referral Priority Routine Referral Appointment Date 2023-02-04 General Notes Rosangela Cruz 09:25:33 AM >received today, notes locked, insurance card attached, referral faxed Rosangela Cruz 01/29/2023 12:42:25 PM >Shannan at Dr. Rodriges office requested referral be faxed again to [phone]. done! Rosangela Cruz 02/05/2023 02:23:23 PM >notes [...] Primary Care Provider Active Delano Francis DO [facility] Attending Provider Active Team Status: [...] 07, 2024 End: January 07, 2024 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 Of Music Relationship Specialty Start Date End Date Robles Charles MD [address] [place] [phone] PCP - General Internal Medicine 07/30/23 Team Status: Inactive Member Role Status Dates Robles Charles DO Primary Care Provide r, Attending Provider Active Start: 2024 End: 2024 Team Status: Inactive Member Role Status Dates Robles Charles DO Primary Care Provider Active Start: May 03, 2024 End: May 03, 2024 Caro Chacon APRN DIRECTOR SUPPLY-C Attending Provider Act alex Start: May 03, 2024 End: May 03, 2024 Team Status: Inactive Member Role Status Dates Robles Charles DO Primary Care Provide r, Attending Provider Active Start: August 29, 2024 End: August 29, 2024 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 Of Music Relationship Specialty Start Date End Date Robles Charles MD [address] [place] [phone] PCP - General Internal Medicine 07/30/23 Deisy Villar PA [address] [place] [address] Tosin Ramachandran, [facility] PCP - Medical [employer] 11/30/23 11/29/99 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 Of Music Relationship Specialty Start Date End Date Robles Charles MD [address] [place] [phone] PCP - General Internal Medicine 07/30/23 Deisy Villar PA [facility] Radha Ramachandran, [place] [phone] PCP - Medical [employer] 11/30/23 11/29/99 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 Of Music Relationship Specialty Start Date End Date Robles Charles MD [address] [place] [phone] PCP - General Internal Medicine 07/30/23 Deisy Villar PA [address] [place] [address] [place] [address] PCP - Medical [employer] 11/30/23 11/29/99 Team Status: Inactive Member [...] 18, 2024 End: October 18, 2024 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 Of Music Relationship Specialty Start Date End Date Robles Charles MD [address] [place] [phone] PCP - General Internal Medicine 07/30/23 Deisy Villar PA [address] [place] [address] [place] [address] PCP - Medical [employer] 11/30/23 11/29/99 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 Of Music Relationship Specialty [place] [address] [place] [phone] PCP - General Internal Medicine 07/30/23 Deisy Villar PA [address] [place] [address] [place] [address] PCP - Medical [employer] 11/30/23 11/29/99 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 Of Music Relationship Specialty Start Date End Date Robles Charles MD [address] [place] [address] [place] [phone] PCP - General Internal Medicine 07/30/23 Deisy Villar PA [address] [place] [address] [place] [address] PCP - Medical [employer] 11/30/23 11/29/99 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 Of Music Relationship Specialty Start Date End Date Robles Charles MD [address] [place], [place] [address], [place] [phone] PCP - General Internal Medicine 07/30/23 Deisy Villar PA [address] [place] [address] [place] [address] PCP - Medical [employer] 11/30/23 11/29/99 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 Of Music Relationship Specialty Start Date End Date Robles Charles MD PCP - General Internal Medicine 07/30/23 Deisy Villar PA [address] [place] [address] [place] [address] PCP - Medical [employer] 11/30/23 11/29/99 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 Of Music Relationship Specialty Start Date End Date Robles Charles DO PCP - General Internal Medicine 07/30/23 Deisy Villar PA [address] [place] [address] [place] [address] PCP - Medical [employer] 11/30/23 11/29/99 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 Of Music Relationship Specialty Start Date End Date Robles Charles DO [address] [place] [phone] PCP - General Internal Medicine 07/30/23 Deisy Villar PA [facility] Radha Ramach[place]ran, [place] [address] PCP - Medical [employer] 11/30/23 11/29/99 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 Of Music Relationship Specialty Start Date End Date Robles Charles DO [address] [place] [phone] PCP - General Internal Medicine 07/30/23 Deisy Villar PA [address] [place], [place] [address]justus Ramachandran, [place] [address] PCP - Medical [employer] 11/30/23 11/29/99 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 Of Music Relationship Specialty Start Date End Date Robles Charles DO [address] [place] [phone] PCP - General Internal Medicine 07/30/23 Deisy Villar PA [address] [place], [place] [address]justus Ramachandran, [facility] PCP - Medical [employer] 11/30/23 11/29/99 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 Of Music Relationship Specialty Start Date End Date Robles Charles DO [address] [place] [address] PCP - General Internal Medicine 07/30/23 Deisy Villar PA [facility] [place] [address] PCP - Medical [employer] 11/30/23 11/29/99 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 Of Music Relationship Specialty Start Date End Date Robles Charles DO [address] [facility] [place] [phone] PCP - General Internal Medicine 07/30/23 Deisy Villar PA [address] [place] [address] [place] [address] PCP - Medical [employer] 11/30/23 11/29/99 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 Of Music Relationship Specialty Start Date End Date Robles Charles DO [address] [facility] [place] [phone] PCP - General Internal Medicine 07/30/23 Deisy Villar PA [address] [place] [address] [place] [address] PCP - Medical [employer] 11/30/23 11/29/99 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 Of 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 Relationship Specialty Start Date End Date Robles Charles DO [address] [facility] [place] [phone] PCP - General Internal Medicine 07/30/23 Deisy Villar PA [address] [place] [address] [place] [address] PCP - Medical [employer] 11/30/23 11/29/99 Goals (unrecognized section and content) Goals may be documented in a n alternate section INFORMATION SOURCE (unrecogn ized section and content) DATE CREATED AUTHOR 09/02/2022 [facility] DATE CREATED AUTHOR AUTHOR'S ORGANIZ ATION 09/23/2024 [facility] DATE CREATED AUTHOR AUTHOR'S ORGANIZ ATION 06/16/2025 [facility] FOR RECORDS PERTAINING TO PATIENTS WHO ARE [...] BE BASED ON THE PRIMARY CLINICAL RECORDS. [facility] [employer] [facility]. provides no warranty or guarantee of the accuracy or completeness of information in this document.
[2025-06-24 08:19] VITALS: BP 122/68; PULSE 79
== END 2025-06-24 08:48 | disposition home or self-care (01) ==
LOC: US 08:02 → FBC 08:03
PROVIDERS: PCP Internal Medicine; Visit Provider Obstetrics & Gynecology
DX: O26.893 Other specified pregnancy related conditions, third trimester (principal); Z87.59 Personal history of other complications of pregnancy, childbirth and the puerperium; Z3A.33 33 weeks gestation of pregnancy
CPT/HCPCS: 76818

== ENCOUNTER 2025-07-01 07:55 | Outpatient (OUT) | payer OTHER, SELFPAY ==
--- OUTSIDE RECORDS SUMMARY | 2025-06-26 11:30 | XMS_ITS | Encounter Summary ---
Author Organization [facility] Address [address] [place] [address] Care Team Providers Care Weld Engineer Name Role Phone MelvinRobles Primary Care Provider [phone] Deisy Haji Unavailable Encounter Details Date Type Department Care Team (Latest Contact Info) Description 06/26/2025 11:30 AM EDT Ancillary Procedure [facility] [address] [place] [address] [place] [phone] Excessive growth affecting management of in third trimester, single or unspecified fetus ([facility]) Social History Tobacco Use Types Packs/Day [...] Care Team (Late st Contact Info) Description 07/10/2025 1:50 PM EDT Routine [facility] [address] [place] [address] [place] [address] Ángel Buckner, DO [address] [facility] [place] [address] 07/17/2025 2:50 PM EDT Routine [facility] [address] [place] [address] [place] [phone] Ángel Buckner, DO [address] [facility] [place] [address] 07/24/2025 11:20 AM EDT Routine [facility] [address] [place] [address] [place] [address] Ángel Buckner, DO [address] [facility] [place] [address] 09/19/2025 8:30 AM EDT Office Visit [facility] [address] [place] [address] [place] [phone] Ángel Buckner, DO [address] [facility] [place] [address] documented as of this encounter Procedures Procedure Name Priority Date/Time Associated Diagnosis Comments US OB FOLLOW UP TRANSABDOMINAL APPROACH Routine 06/26/2025 11:22 AM EDT Excessive growth affecting management of in third trimester, single or unspecified fetus ([facility]) documented in this encounter Results * US OB follow up transabdominal approach (06/26/2025 11:22 AM EDT) Anatomical Region Laterality Modality Body Ultrasound 06/26/2025 11:4 3 PM EDT Narrative 06/26/2025 11:43 PM EDT EXAM: US OB FOLLOW UP TRANSABDOMINAL APPROACH HISTORY: Large for gestational age. COMPARISON: Ob ultrasound 05/11/2025. TECHNIQUE: Two-dimensional transabdominal grayscale ultrasound imaging of the pelvis was performed. FINDINGS: Gestation: Single Presentation: Cephalic Cardiac Activity: 147 beats per minute Amniotic Fluid Index: 17.7 cm MEASUREMENTS: BPD: 8.5 cm EGA: 34 weeks 1 days HC: 31.3 cm EGA: 35 weeks 1 days AC: 30.5 cm EGA: 34 weeks 3 days FL: 6.8 cm EGA: 34 weeks 6 days HC/AC Ratio: 1.03 The gestational age by today's ultrasound is 34 weeks 5 days (+/- 17 days gestation). Estimated Weight: 2471 grams, +/- 371 grams ( 5 lb 7 oz). Weight Percentile for gestational age: 70 % IMPRESSION: 1. Single, live intrauterine gestation 33 weeks, 5 days by LMP. Today's ultrasound measurements correlate with a gestational age of 34 weeks 5 days. Estimated weight is 2471 grams, +/- 371 grams ( 5 lb 7 oz) which correlates to 70 %. EDIE by today's ultrasound is 08/02/2025. Interpreted by: Electronically signed by EVELYNE SAMUEL II, MD, PHD at 26-Jun-2025 11:42:39 PM [facility] Procedure Note Evelyne Samuel MD - 06/26/2025 EXAM: US OB FOLLOW UP TRANSABDOMINAL APPROACH HISTORY: Large for gestational age. COMPARISON: Ob ultrasound 05/11/2025. TECHNIQUE: Two-dimensional transabdominal grayscale ultrasound imaging ofthe pelvis was performed. FINDINGS: Gestation: Single Presentation: Cephalic Cardiac Activity: 147 beats per minute Amniotic Fluid Index: 17.7 cm MEASUREMENTS: BPD: 8.5 cm EGA: 34 weeks 1 days HC: 31.3 cm EGA: 35 weeks 1 days AC: 30.5 cm EGA: 34 weeks 3 days FL: 6.8 cm EGA: 34 weeks 6 days HC/AC Ratio: 1.03 The gestational age by today's ultrasound is 34 weeks 5 days (+/- 17 daysgestation). Estimated Weight: 2471 grams, +/- 371 grams ( 5 lb 7 oz). Weight Percentile for gestational age: 70 % IMPRESSION: 1. Single, live intrauterine gestation 33 weeks, 5 days by LMP. Today'sultrasound measurements correlate with a gestational age of 34 weeks 5days. Estimated weight is 2471 grams, +/- 371 grams ( 5 lb 7 oz)which correlates to 70 %. EDIE by today's ultrasound is 08/02/2025. Interpreted by: Electronically signed by EVELYNE SAMUEL II, MD, PHD [id number] 11:42:39 PM [facility] us Deisy MUNOZ IMRyan OB US PROCEDURES Final Resul t documented in this encounter Visit Diagnoses Diagnosis Excessive growth affecting management of in third trimester, single or unspecified fetus ([facility]) documented in this encounter Care Teams Weld Engineer Relationship Specialty Start [place] [address] [place] [phone] PCP - General Internal Medicine 07/30/23 Deisy Haji PA [address] [place] [address] [place] [address] PCP - Medical [employer] 11/30/23 11/29/99 documented as of this encounter
--- OUTSIDE RECORDS SUMMARY | 2025-06-26 13:10 | XMS_ITS | Encounter Summary ---
Author Organization [facility] Address [address] [place] [address] Care Team Providers Care Tobacco Sample Puller Name Role Phone Robles Charles DO Primary Care Provider [phone] Deisy Haji Unavailable Reason for Visit * Reason Comments Routine Visit Encounter Details Date Type Department Care Team (Late st Contact Info) Description 06/26/2025 1:10 PM EDT Routine NOMSheree Kaur OBGYN [address] [facility] [place] [phone] Ángel Buckner DO [address] [facility] [address] Arash Kaur, [facility] Third trimester ([facility]); 33 weeks gestation of ([facility]) Social History Tobacco Use Types Packs/Day Years [...] Sign Reading Time Taken Comments Blood Pressure 116/74 06/26/2025 1:08 PM EDT Pulse - - Temperature - - Respiratory Rate - - Oxygen Saturation - - Inhaled Oxygen Concentration - - Weight 105 kg (231 lb 1.9 oz) 06/26/2025 1:08 PM EDT Height - - Body Mass Index 36.2 01/06/2024 2:20 PM EST documented in this encounter Progress Notes * Mary Lou Kearney, NEUROLOGY PHYSICIAN ASSISTANT - 06/26/2025 1:10 PM EDT Reason for Appointment: Patient ID: Michelet [...] nursing note reviewed. Exam conducted with a electrolysist present. Vitals: Estimated body mass index is 36.2 kg/m?? as calculated from the following: Height as of 01/06/24: 5' 7 . Weight as of this encounter: 231 lb 1.9 oz. BP: 116/74 Patient's last menstrual period was 11/02/2024. ASSESSMENT & PLAN (Z34.93) Third trimester ([facility]) Plan: POCT urinalysis dipstick manually resulted (Z3A.33) 33 weeks gestation of ([facility]) Plan: POCT urinalysis dipstick manually resulted Patient presents today for a routine obstetrics appointment. Patient is currently 33w5d with a Estimated Date of Delivery: 08/09/25. Patient to return to clinic in 2 weeks for GBS. Documented by Mary Lou Kearney LPN on behalf of: Ángel Buckner DO documented in this encounter Plan of Treatment Upcoming Encounters Date Type Department Care Team (Late st Contact Info) Description 07/10/2025 1:50 PM EDT Routine HERBIE [place] OBGYN [address] [facility] [place] [phone] Ángel Buckner DO [address] [facility] [place] [address] 07/17/2025 2:50 PM EDT Routine NOMSheree CARRASQUILLO [address] [place] [address] [place] [address] Ángel Buckner, DO [address] [facility] [place] [address] 07/24/2025 11:20 AM EDT Routine NOMSheree CARRASQUILLO [address] [place] [address] [place] [address] Ángel Buckner, DO [address] [facility] [place] [address] 09/19/2025 8:30 AM EDT Office Visit HERBIE CARRASQUILLO [address] [place] [address] [place] [address] Ángel Buckner, DO [address] [facility] [place] [address] documented as of this encounter Procedures Procedure Name Priority Date/Time Associated Diagnosis Comments POCT URINALYSIS DIPSTICK Routine 06/26/2025 1:26 PM EDT Third trimester ([facility]) 33 weeks gestation of ([facility]) documented in this encounter Results * POCT urinalysis dipstick manually resulted (06/26/2025 1:26 PM EDT) Color, UA Yellow Clarity, UA Clear Glucose, UA Negative Negative - 1999(110) ++++ mg/dL Bilirubin, UA Negative Negative - 4(70) +++ mg/dL Ketones, UA Negative Negative - 160(16) ++++ mg/dL Spec Grav, UA 1.010 1 - 1.03 Blood, UA Negative Negative - 50 Ezequiel/mcL pH, UA 6.5 5 - 9 Protein, UA Negative Negative - 1999(20) ++++ mg/dL Urobilinogen, UA 1.0 0.2 - 12 mg/dL Leukocytes, UA Negative Negative - 500+++ Jason/mcL Nitrite, UA Negative Negative - Positive Urine 06/26/2025 1:26 PM EDT Ángel Buckner DO POINT OF CARE TEST ENTER/EDIT OR DERABLES Final Result documented in this encounter Visit Diagnoses Diagnosis Third trimester ([facility]) state, incidental 33 weeks gestation of ([facility]) documented in this encounter Care Teams Tobacco Sample Puller Relationship Specialty Start Date End Date Robles Charles DO [address] [facility] [place] [address] PCP - General Internal Medicine 07/30/23 Deisy Haji PA [address] [place] [address] [place] [address] PCP - Medical [place] [employer] 11/30/23 11/29/99 documented as of this encounter
--- NOTE | 2025-07-01 | US_ITS ---
[place] [id number] Patient Name: PHILLIP HERNANDEZ MRN: [facility]:[id number] date: 1990 Sex: F Assigned Patient [facility]: [facility] Current Patient Location: Accession/Order Number: [id number] Exam Date: 07/01/2025 20:05 Report Date: 07/01/2025 20:07 At the request of: LE DELVALLE DO Procedure: US OB BPP w non-stress US OB BPP w non-stress 07/01/2025 8:28 AM SIGNS AND SYMPTOMS: ^MULTIGRAVIDA OF ADVANCED MATERNAL AGE O09.523 PROTOCOL: Transabdominal sonographic images of the gravid uterus COMPARISON: None FINDINGS: heart rate: 150 bpm Amniotic fluid index: 15.31 cm The deepest vertical pocket of amniotic fluid: 5.25 cm Biophysical profile: breathing movements: 2/2 Gross body movements: 2/2 tone: 2/2 Amniotic fluid volume: 2/2 US/US OB BPP w non-stress IMPRESSION: Biophysical profile: 07/07 Impression dictated by: Roddy Yusuf M.D. 07/01/2025 8:07 PM Dictation Location: [place] [address] Electronically authenticated by: [id number] Y Date: 07/01/2025 20:07
--- OUTSIDE RECORDS SUMMARY | 2025-07-01 07:56 | XMS_ITS | Encounter Summary ---
Author Organization [facility] Address [address] [place] [address] Care Team Providers Care School Bus Attendant Name Role Phone MelvinRobles Primary Care Provider [phone] Deisy Haji Unavailable Encounter Details Date Type Department Care Team (Late st Contact Info) Description 03/09/2025 Orders Only NOMS Silvina CARRASQUILLO [address] [place] [address] Camille Lawrence LPN [address] [place] [id number] Social History Tobacco Use Types Packs/Day Years [...] Description 07/10/2025 1:50 PM EDT Routine NOMS Silvina CARRASQUILLO [address] [place] [address] [place] [phone] Ángel Buckner, [address] [facility] [address] 07/17/2025 2:50 PM EDT Routine NOMSheree CARRASQUILLO [address] [place] [address] [place] [address] Ángel Buckner [address] [place], [place] [phone] 07/24/2025 11:20 AM EDT Routine NOMSheree CARRASQUILLO [address] [place] [address] [place] [address] Ángle Buckner, DO [address] [facility] [address] Arash [place]aur, [facility] 09/19/2025 8:30 AM EDT Office Visit HERBIE CARRASQUILLO [address] [place], [place] [address]Just[address] [place] [address] Ángel Buckner, DO [address] [place] [address] Dr Arash Kaur, [facility] documented as of this encounter Procedures [...] on filedocumented in this encounter Care Teams School Bus Attendant Relationship Specialty Start Date End Date Robles Charles DO [address] [facility] [place] [address] PCP - General Internal Medicine 07/30/23 Deisy Haji PA [address] [place] [address] [place] [address] PCP - Medical [place] [employer] 11/30/23 11/29/99 documented as of this encounter
--- OUTSIDE RECORDS SUMMARY | 2025-07-01 07:56 | XMS_ITS | Encounter Summary ---
Author Organization [facility] Address [address] [place] [address] Care Team Providers Care Dairy Specialist Name Role Phone MelvinRobles Justus CRESPO Primary Care Provider [phone] Deisy Haji Unavailable Encounter Details Date Type Department Care Team (Late st Contact Info) Description 06/17/2025 Clinisync Result Encounter NOMS External Department Unsolicited Le Buckner DO [address] [facility] [place] [address] Social History Tobacco Use Types [...] Description 07/10/2025 1:50 PM EDT Routine NOMS [place]eland OBGYN [address] [place] [address] [place] [address] Le Buckner, DO [address] [facility] [place] [address] 07/17/2025 2:50 PM EDT Routine NOMS Natasha OBGYN [address] [place] [address] [place] [address] Le Buckner, DO [address] [facility] [place] [address] 07/24/2025 11:20 AM EDT Routine NOMS Natasha OBGYN [address] [place] [address] [place] [address] Le Buckner, DO [address] [facility] [place] [address] 09/19/2025 8:30 AM EDT Office Visit NOMSheree Kaur OBGYManuel [address] [place] [address] [place] [address] Le Buckner, DO [address] [facility] [place] [address] documented as of this encounter Procedures Procedure Name Priority Date/Time Associated Diagnosis Comments US OB BPP W NON-STRESS 06/17/2025 9:20 AM EDT documented in this encounter Results * US OB BPP W NON-STRESS (06/17/2025 9:20 AM EDT) Anatomical Region Laterality Modality Other 06/17/2025 9:20 AM EDT Narrative 06/17/2025 9:22 AM EDT The [address] [address] Ultrasound Report Signed Patient: PHILLIP HERNANDEZ MR#: [id number] : 1990 Acct:[id number] Age/Sex: 35 / F ADM Date: 06/17/25 Loc: FB 250-[address]: Le Buckner D.O. Ordering Physician: Le Buckner D.O. Date of Service: 06/17/25 Procedure(s): US OB BPP w non-stress Accession Number(s): [id number] cc: Robles Charles D.O.; Le Buckner D.O. The [place] [address] Patient Name: PHILLIP HERNANDEZ MRN: [facility]:[id number] date: 1990 Sex: F Assigned Patient Location: [facility] Current Patient Location: [facility] Accession/Order Number: [id number] Exam Date: 06/17/2025 09:17 Report Date: 06/17/2025 09:20 At the request of: LE BUCKNER DO Procedure: US OB BPP w non-stress Biophysical profile INDICATION: Multigravida of advanced maternal age COMPARISON: None FINDINGS AND IMPRESSION:: Fetus cephalic position with heart rate 155 bpm. 8 out of 8 score biophysical profile largest fluid pocket measuring 4.6 cm. MARTY is 14.1 cm. Impression dictated by: Carlton Ramach[place] M.D. 06/17/2025 9:20 AM Dictation Location: [place] [address] Electronically authenticated by: [id number] Y Date: 06/17/2025 09:20 Dictated By: Carlton Ramachandran M.D. Signed By: 06/17/2522 DD/ 9 TD/TT: Behavioral Therapist: Procedure Note Radiology, Radiologist, MD - 06/17/2025 [place] [address] Ultrasound Report Signed Patient: PHILLIP HERNANDEZ LMR#: [id number] : 1990Acct:[id number] Age/Sex: 35 / FADM Date: 06/17/25 Loc: FB 250-[address]: Le Buckner D.O. Ordering Physician: Le Buckner D.O. Date of Service: 06/17/25 Procedure(s): US OB BPP w non-stress Accession Number(s): [id number] cc: Robles Charles D.O.; Le Buckner D.O. [facility] [address] [place], [place] [address] Patient Name: PHILLIP HERNANDEZ MRN: [facility]:[id number] date: 1990 Sex: F Assigned Patient Location: [facility] Current Patient Location: [facility] Accession/Order Number: [id number] Exam Date: 06/17/2025 09:17 Report Date: 06/17/2025 09:20 At the request of: LE BUCKNER DO Procedure: US OB BPP w non-stress Biophysical profile INDICATION: Multigravida of advanced maternal age COMPARISON: None FINDINGS AND IMPRESSION:: Fetus cephalic position with heart rlqr909 bpm. 8 out of 8 score biophysical profile largest fluid pocket measuring4.6 cm. MARTY is 14.1 cm. Impression dictated by: Carlton aRmachandran M.D. 06/17/2025 9:20 AM Dictation Location: [place] [address] Electronically authenticated by: [id number] Y Date: 509:20 Dictated By: Carlton Ramachandran M.D. Signed By:06/17/25921 DD/ 9 TD/TT: Behavioral Therapist: Le Buckner DO [facility] Final Result documented in this encounter Visit Diagnoses Not on filedocumented in this encounter Care Teams Dairy Specialist Relationship Specialty Start Date End Date Robles Charles DO [address] [facility] [place] [address] PCP - General Internal Medicine 07/30/23 Deisy Haji PA [address] [place] [address] [place] [address] PCP - Medical [place] [employer] 11/30/23 11/29/99 documented as of this encounter
--- OUTSIDE RECORDS SUMMARY | 2025-07-01 07:56 | XMS_ITS | Encounter Summary ---
Author Organization [facility] Address [address] [place] [address] Care Team Providers Care Hoop Maker Machine Name Role Phone MelvinRobles Primary Care Provider [phone] Deisy Haji Unavailable Encounter Details Date Type Department Care Team (Late st Contact Info) Description 08/06/2023 Clinisync Result Encounter NOMS External Department Unsolicited Le Buckner DO [address] [place] [address] Social History Tobacco Use Types Packs/Day [...] 1:50 PM EDT Routine [facility] Natasha OBGYN [address] [place] [address] Le Buckner DO 102 [place] [place], [place] [address] 07/17/2025 2:50 PM EDT Routine NOMS Natasha FROSTGYManuel [address] [place] [address] [place] [address] Le Buckner, [address] [place] [address] 07/24/2025 11:20 AM EDT Routine NOMSheree CARRASQUILLO [address] [place] [address] [place] [address] Le Buckner, [address] [place] [address] 09/19/2025 8:30 AM EDT Office Visit NOMSheree CARRASQUILLO [address] [place] [address] [place] [address] Le Buckner, [address] [place] [address] documented as of this encounter Procedures Procedure Name Priority Date/Time Associated Diagnosis Comments US OB TRANSVAGINAL 08/06/2023 4: 44 PM EDT documented in this encounter Results * US OB TRANSVAGINAL (08/06/2023 4:44 PM EDT) Anatomical Region Laterality Modality Other 08/06/2023 4:44 PM EDT Narrative 08/06/2023 4:44 PM EDT The [address] [address] Ultrasound Report Signed Patient: Phillip Hernandez MR#: [id number] : 1990 Acct:[id number] Age/Sex: 33 / F ADM Date: 08/06/23 Loc: US Attending Dr: Le Buckner D.O. Ordering Physician: Le Buckner D.O. Date of Service: 08/06/23 Procedure(s): US OB transvaginal Accession Number(s): [id number] cc: Le Buckner D.O.; Physician,Non-Staff Lauri The [address] [address] Patient Name: PHILLIP HERNANDEZ MRN: [id number] date: 1990 Sex: F Assigned Patient Location: US Current Patient Location: US Accession/Order Number: [id number] Exam Date: 08/06/2023 09:32 Report Date: 08/06/2023 [...] M.D. Signed By: 08/06/231646 DD/ 43 TD/TT: Hand Printed Circuit Board Assembler: Procedure Note Radiology, Radiologist, MD - 08/21/2023 [place] [address] Ultrasound Report Signed Patient: Phillip Hernandez LMR#: [id number] : 1990Acct:[id number] Age/Sex: 33 / FADM Date: 08/06/23 Loc: US Attending Dr: Le Buckner D.O. Ordering Physician: Le Buckner D.O. Date of Service: 08/06/23 Procedure(s): US OB transvaginal Accession Number(s): [id number] cc: Le Buckner D.O.; Physician,Non-Staff Lauri The [address] [address] Patient Name: PHILLIP HERNANDEZ MRN: [id number] date: 1990 Sex: F Assigned Patient Location: US Current Patient Location: US Accession/Order Number: [id number] Exam Date: 08/06/2023 09:32 Report Date: 08/06/2023 [...] Yeung M.D. Signed By:08/06/231646 DD/ 43 TD/TT: Hand Printed Circuit Board Assembler: us Le Buckner DO [facility] Final Result documented in this encounter Visit Diagnoses Not on filedocumented in this encounter Care Teams Hoop Maker Machine Relationship Specialty Start Date End Date Robles Charles DO [address] [facility] [place] [facility] [place] [address] PCP - General Internal Medicine 07/30/23 Deisy Haji PA [address] [place] [address] [place] [address] PCP - Medical [place] [employer] 11/30/23 11/29/99 documented as of this encounter
--- OUTSIDE RECORDS SUMMARY | 2025-07-01 07:56 | XMS_ITS | Encounter Summary ---
Author Organization [facility] Address [address] [place] [address] Care Team Providers Care Plumbing Contractor Name Role Phone MelvinRobles Justus CRESPO Primary Care Provider [phone] Deisy Haji Unavailable Encounter Details Date Type Department Care Team (Late st Contact Info) Description 06/24/2025 Clinisync Result Encounter NOMS External Department Unsolicited Le Buckner DO [address] [facility] [address] [place] [address] Social History Tobacco Use Types [...] Description 07/10/2025 1:50 PM EDT Routine N[facility]S Jacob OBGYN [address] [place] [address] [place] [address] Le Buckner, DO [address] [facility] [place] [address] 07/17/2025 2:50 PM EDT Routine [facility] Natasha OBGYN [address] [place] [address] [place] [address] Le Buckner, DO [address] [facility] [place] [address] 07/24/2025 11:20 AM EDT Routine [facility] Natasha OBGYN [address] [place] [address] [place] [address] Le Buckner, DO [address] [facility] [place] [address] 09/19/2025 8:30 AM EDT Office Visit NOMSheree Kaur OBGYManuel [address] [place] [address] [place] [address] Le Buckner, DO [address] [place] [place] [address] documented as of this encounter Procedures Procedure Name Priority Date/Time Associated Diagnosis Comments US OB BPP W NON-STRESS 06/24/2025 9:34 AM EDT documented in this encounter Results * US OB BPP W NON-STRESS (06/24/2025 9:34 AM EDT) Anatomical Region Laterality Modality Other 06/24/2025 9:34 AM EDT Narrative 06/24/2025 9:36 AM EDT The [address] [address] Ultrasound Report Signed Patient: PHILLIP HERNANDEZ MR#: [id number] : 1990 Acct:[id number] Age/Sex: 35 / F ADM Date: 06/24/25 Loc: US Attending Dr: Le Buckner D.O. Ordering Physician: Le Buckner D.O. Date of Service: 06/24/25 Procedure(s): US OB BPP w non-stress Accession Number(s): [id number] cc: Robles Charles D.O.; Le Buckner D.O. The [place] [address] Patient Name: PHILLIP HERNANDEZ MRN: [id number] date: 1990 Sex: F Assigned Patient Location: US Current Patient Location: Accession/Order Number: [id number] Exam Date: 06/24/2025 09:33 Report Date: 06/24/2025 09:34 At the request of: LE BUCKNER DO Procedure: US OB BPP w non-stress Biophysical profile. Reason for exam: History of miscarriage COMPARISON: 06/17/2025 TECHNIQUE: Transabdominal imaging of the gravid uterus was obtained. FINDINGS: The buffet manager reports a BPP of 8 out of 8. MARTY is normal at 15 cm. heart rate 130 bpm. US/US OB BPP w non-stress IMPRESSION: BPP 8 out of 8. Impression dictated by: Justin Mack Jr., D.O. 06/24/2025 9:34 AM Dictation Location: [place] [address] Electronically authenticated by: [id number] Y Date: 06/24/2025 09:34 Dictated By: Justin Mack M.D. Signed By: 06/24/2536 DD/ 3 TD/TT: Nutrition Consultant: Procedure Note Radiology, Radiologist, MD - 06/24/2025 [place] [address] Ultrasound Report Signed Patient: PHILLIP HERNANDEZ LMR#: [id number] : 1990Acct:[id number] Age/Sex: 35 / FADM Date: 06/24/25 Loc: US Attending Dr: Le Buckner D.O. Ordering Physician: Le Buckner D.O. Date of Service: 06/24/25 Procedure(s): US OB BPP w non-stress Accession Number(s): [id number] cc: Robles Charles D.O.; Le Buckner D.O. [place] [address] [place], [place] [address] Patient Name: PHILLIP HERNANDEZ MRN: [facility]:[id number] date: 1990 Sex: F Assigned Patient Location: US Current Patient Location: Accession/Order Number: [id number] Exam Date: 06/24/2025 09:33 Report Date: 06/24/2025 09:34 At the request of: LE BUCKNER DO Procedure: US OB BPP w non-stress Biophysical profile. Reason for exam: History of miscarriage COMPARISON: 06/17/2025 TECHNIQUE: Transabdominal imaging of the gravid uterus was obtained. FINDINGS: The buffet manager reports a BPP of 8 out of 8. MARTY is normal at15 cm. heart rate 130 bpm. US/US OB BPP w non-stress IMPRESSION: BPP 8 out of 8. Impression dictated by: Justin Mack Jr., D.O. 06/24/2025 9:34 AM Dictation Location: [place] [address] Electronically authenticated by: [id number] Y Date: 9:34 Dictated By: Justin Mack M.D. Signed By:06/24/2536 DD/ TD/TT: Nutrition Consultant: us Le Buckner DO [facility] Final Result documented in this encounter Visit Diagnoses Not on filedocumented in this encounter Care Teams Plumbing Contractor Relationship Specialty Start Date End Date Robles Charles DO [address] [place] [address] PCP - General Internal Medicine 07/30/23 Deisy Haji PA [address] [facility] [address] [place], [place] [address] PCP - Medical [place] [employer] 11/30/23 11/29/99 documented as of this encounter
--- OUTSIDE RECORDS SUMMARY | 2025-07-01 07:57 | XMS_ITS | Encounter Summary ---
Author Organization [facility] Address [address] [place] [address] Care Team Providers Care Preparation Supervisor Freezing Name Role Phone MelvinRobles Jomar CRESPO Primary Care Provider [phone] Deisy Haji Unavailable Encounter Details Date Type Department Care Team (Late Contact Info) Description 02/02/2025 Abstract [facility] Natasha CARRASQUILLO [address] [place] [address] Ángel Buckner DO [address] [facility] [address] [place], [facility] Social History Tobacco Use Types Packs/Day Years [...] 1:50 PM EDT Routine [facility] Natasha OBGYN [address] [place] [address] [place] [address] Ángel Buckner, DO [address] [facility] [place] [address] 07/17/2025 2:50 PM EDT Routine [facility] Natasha OBGYN [address] [place] [address] [place] [address] Ángel Buckner, DO [address] [place] [address] 07/24/2025 11:20 AM EDT Routine [facility] Natasha OBGYN [address] [place] [address] [place] [address] Ángel Buckner, DO [address] [facility] [address] [place], [facility] 09/19/2025 8:30 AM EDT Office Visit NOMSheree CARRASQUILLO [address] [place] [address] [place] [address] Ángel Buckner, DO [address] [facility] [place] [address] documented as of this encounter Visit Diagnoses Not on filedocumented in this encounter Care Teams Preparation Supervisor Freezing Relationship Specialty Start Date End Date Robles Charles DO [address] [place] [address] PCP - General Internal Medicine 07/30/23 Deisy Haji PA [address] [place], [place] [address] [address] PCP - Medical [place] [employer] 11/30/23 11/29/99 documented as of this encounter
--- OUTSIDE RECORDS SUMMARY | 2025-07-01 07:58 | XMS_ITS | CCD ---
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 Name Role Phone Subha Dillon Unavailable Elsi Mayer Unavailable MD Liz Conteh Primary Care Provider [phone] DO Delano Francis Attending Provider [phone] SITA, DR LUJAN Consulting Unavailable SITA, [...] Unavailable MD Liz Conteh Primary Care Provider [phone] DO Delano Francis Attending Provider QUANG Villar Attending Provider DO Robles Charles Primary Care Provider Robles Charles MD Primary Care Provider QUANG Villar Attending Provider [phone] DO Robles Charles Primary Care Provider Deisy Pratt Unavailable DO Robles Charles Primary Care Provider Tito - DO Delano MEZA Attending Provider Tito Delano MEZA Admitting Unavailable Tito Delano MEZA Attending Unavailable Robles Charles Primary Care Unavailable Deisy Villar Admitting Unavailable Deisy Villar Attending Unavailable Robles Charles Primary Care Unavailable Robles Charles DO Primary Care Provider [facility] Delano CRESPO Attending Provider Robles Charles MD Primary Care Provider Robles Charles DO Primary Care Provider Robles Charles DO Primary Care Provider SITA, ÁNGEL Attending Unavailable ADITHYA, DEISY Attending Unavailable SITA, ÁNGEL Attending Unavailable SITA, ÁNGEL Referring Unavailable ADITHYA, DEISY Attending Unavailable SITA, ÁNGEL Attending Unavailable SITA, ÁNGEL Attending Unavailable ADITHYA, DEISY Referring Unavailable SITA, ÁNGEL Attending Unavailable SITA, ÁNGEL Attending Unavailable Allergies Allergy Classification Reported Allergen(s) Allergy Type Date of Onset Reaction(s) Facility (5 sources) Penicillin V Drug Allergy rash [facility] Other (1 source) Amoxicillin Drug Allergy 0 [facility] Repository (1 source) Penicillins Drug allergy (disorder) [facility] Repository (5 sources) Penicillin Drug Allergy rash [facility] Other (1 source) Substance with penicillin structure and antibacterial mechanism of action (substance) Drug allergy 3 PENICILLINS [facility] Other (20 sources) Amoxicillin Drug Allergy 3 Hives [facility] Healthcare (20 sources) Penicillin G Drug Allergy 3 Unknown [facility] Healthcare (1 source) Penicillins Drug allergy (disorder) 4 [facility] Repository Medications Current Medications Medication Drug [...] 12/22/2024 02/02/2025 Active Pre- (10 sources) Pre-Mack [facility] Pre-Mack Active MV-Min-Fe Fum-FA-DH A [...] mg tablet Discontinued 250 MG PO daily 05 04May 02, 2024 11:00pm October 18, 2024 11:19am [...] Overweight Episodic Other and delivery including normal (14 sources) Second trimester ; Translations: [Encounter for [...] [31 weeks gestation of ] 06-12-2025 Episodic Residual codes; unclassified (2 sources) Gestation period, 33 weeks; Translations: [33 weeks gestation of ] 06-26-2025 Episodic Unclassified (1 source) Endocrine disorder, unspecified; Translations: [Endocrine disorder, unspecified] Onset: Past or Other Problems Problem Classification Problem Date Documented Da te Episodic/Chronic Unclassified (1 source) Contact with and (suspected) exposure to covid-19 Z20.822 Viral infection (1 source) COVID-19 Onset: 12-27-2021 Resolved: 12-27-2021 Results Test Name Value Interpretation Reference Range Facility US OB FOLLOW UP TRANSABDOMIN AL APPROACHon 06-26-2025 US OB FOLLOW UP TRANSABDOMINAL APPROACH EXAM: US OB FOLLOW UP TRANSABDOMINAL APPROACH [...] II, MD, PHD at 26-Jun-2025 11:42:39 PM [facility] Normal Not Available Comment on above: Order Comment: US OB SCAN FOR GROWTH Estimated Date of Delivery: 08/09/25 Gestational Age as of 06/12/2025: 31w5d Urinalysis macro (dipstick) panel (U)on 06-26-2025 Bilirubin, UA Negative Negative - 4(70) +++ [...] - Positive [facility] pH, UA 6.5 5 - 9 [facility] Protein, UA Negative Negative - 2000(20) ++++ mg/dL [facility] Spec Grav, UA 1.01 1 - 1.03 [facility] Urobilinogen, UA 1.0 0.2 - 12 mg/dL [facility] US OB BPP W NON-STRESS on 06-24-2025 [place] [address] Ultrasound Report Signed Patient: ANGELA REYES MR#: [id number] : 1990 Acct:[id number] Age/Sex: 35 / F ADM Date: 06/24/25 Loc: US Attending Dr: Ángel Buckner D.O. Ordering Physician: Ángel Buckner D.O. Date of Service: 06/24/25 Procedure(s): US OB BPP w non-stress Accession Number(s): [id number] cc: Robles Charles D.O.; Ángel Buckner D.O. [address] [address] Patient Name: ANGELA REYES MRN: [facility]:[id number] date: 1990 Sex: F Assigned Patient Location: US Current Patient Location: Accession/Order Number: [id number] Exam Date: 06/24/2025 09:33 Report Date: 06/24/2025 09:34 At the request of: ÁNGEL BUCKNER DO Procedure: US OB BPP w non-stress Biophysical profile. Reason for exam: History of miscarriage COMPARISON: 06/17/2025 TECHNIQUE: Transabdominal imaging of the gravid uterus was obtained. FINDINGS: The customer insight analyst reports a BPP of 8 out of 8. MARTY is normal at 15 cm. heart rate 130 bpm. US/US OB BPP w non-stress IMPRESSION: BPP 8 out of 8. Impression dictated by: Justni Mack Jr., D.O. 06/24/2025 9:34 AM Dictation Location: [place] [address] Electronically authenticated by: [id number] Y Date: 06/24/2025 09:34 Dictated By: Justin Mack M.D. Signed By: 06/24/2536 DD/ TD/TT: Office Systems Technology Instructor: [facility] RadiologyNeelimaogbrittanie pa MD - 06/24/2025 [place] [address] Ultrasound Report Signed Patient: ANGELA REYES MR#: [id number] : 1990 Acct:[id number] Age/Sex: 35 / F ADM Date: 06/24/25 Loc: US Attending Dr: Ángel Buckner D.O. Ordering Physician: Ángel Buckner D.O. Date of Service: 06/24/25 Procedure(s): US OB BPP w non-stress Accession Number(s): [id number] cc: Robles Charles D.O.; Ángel Buckner D.O. The [place] [address] Patient Name: ANGELA REYES MRN: [facility]:[id number] date: 1990 Sex: F Assigned Patient Location: Current Patient Location: Accession/Order Number: [id number] Exam Date: 06/24/2025 09:33 Report Date: 06/24/2025 09:34 At the request of: ÁNGEL BUCKNER DO Procedure: US OB BPP w non-stress Biophysical profile. Reason for exam: History of miscarriage COMPARISON: 06/17/2025 TECHNIQUE: Transabdominal imaging of the gravid uterus was obtained. FINDINGS: The customer insight analyst reports a BPP of 8 out of 8. MARTY is normal at 15 cm. heart rate 130 bpm. US/US OB BPP w non-stress IMPRESSION: BPP 8 out of 8. Impression dictated by: Justin Mack Jr., D.O. 06/24/2025 9:34 AM Dictation Location: [place] [address] Electronically authenticated by: [id number] Y Date: 06/24/2025 09:34 Dictated By: Justin Mack M.D. Signed By: 06/24/2536 DD/ TD/TT: Office Systems Technology Instructor: [facility] Radiology Study observation (narrative) [facility] US OB BPP W NON-STRESS Ordered By: Radiologist Radiology on 06-24-2025 [facility] SMRxT Work Phone: US OB BPP W NON-STRESS on 06-17-2025 [place] [address] Ultrasound Report Signed Patient: ANGELA REYES MR#: [id number] : 1990 Acct:[id number] Age/Sex: 35 / F ADM Date: 06/17/25 Loc: [facility] 250-[address]: Ángel Buckner D.O. Ordering Physician: Ángel Buckner D.O. Date of Service: 06/17/25 Procedure(s): US OB BPP w non-stress Accession Number(s): [id number] cc: Robles Charles D.O.; Ángel Buckner D.O. The [place] [id number] Patient Name: ANGELA REYES MRN: [facility]:[id number] date: 1990 Sex: F Assigned Patient Location: [facility] Current Patient Location: [facility] Accession/Order Number: [id number] Exam Date: 06/17/2025 09:17 Report Date: 06/17/2025 [...] Ramachandran M.D. 06/17/2025 9:20 AM Dictation Location: [place] [address] Electronically authenticated by: [id number] Y Date: 06/17/2025 09:20 Dictated By: Carlton Ramachandran M.D. Signed By: 06/17/25921 DD/ 9 TD/TT: Office Systems Technology Instructor: [facility] RadiologyNeelimaogbrittanie pa MD - 06/17/2025 [place] [address] Ultrasound Report Signed Patient: ANGELA REYES MR#: [id number] : 1990 Acct:[id number] Age/Sex: 35 / F ADM Date: 06/17/25 Loc: [facility] 250-[address]: Ángel Buckner D.O. Ordering Physician: Ángel Buckner D.O. Date of Service: 06/17/25 Procedure(s): US OB BPP w non-stress Accession Number(s): [id number] cc: Robles Charles D.O.; Ángel Buckner D.O. The [address] [address] Patient Name: ANGELA REYES MRN: [facility]:[id number] date: 1990 Sex: F Assigned Patient Location: [facility] Current Patient Location: [facility] Accession/Order Number: [id number] Exam Date: 06/17/2025 09:17 Report Date: 06/17/2025 [...] Ramachandran M.D. 06/17/2025 9:20 AM Dictation Location: [place] [address] Electronically authenticated by: [id number] Y Date: 06/17/2025 09:20 Dictated By: Carlton Ramachandran M.D. Signed By: 06/17/25921 DD/ 9 TD/TT: Office Systems Technology Instructor: [facility] Radiology Study observation (narrative) [facility] US OB BPP W NON-STRESS Ordered By: Radiologist Radiology on 06-17-2025 [facility] Work Phone: US OB BPP W NON-STRESS on 06-10-2025 [place] [address] Ultrasound Report Signed Patient: ANGELA REYES MR#: [id number] : 1990 Acct:[id number] Age/Sex: 35 / F ADM Date: 06/10/25 Loc: US Attending Dr: Ángel Buckner D.O. Ordering Physician: Ángel Buckner D.O. Date of Service: 06/10/25 Procedure(s): US OB BPP w non-stress Accession Number(s): [id number] cc: Robles Charles D.O.; Ángel Buckner D.O. [place] [id number] Patient Name: ANGELA REYES MRN: [id number] date: 1990 Sex: F Assigned Patient Location: [facility] Current Patient Location: Accession/Order Number: [id number] Exam Date: 06/10/2025 18:36 Report Date: 06/10/2025 [...] Yusuf M.D. 06/10/2025 6:38 PM Dictation Location: [place] [address] Electronically authenticated by: [id number] Y Date: 06/10/2025 18:38 Dictated By: Roddy Yusuf M.D. Signed By: 06/10/25 184 DD/ TD/TT: Office Systems Technology Instructor: [facility] Radiology, Radiologi MD ember - 06/10/2025 [place] [address] Ultrasound Report Signed Patient: ANGELA REYES MR#: [id number] : 1990 Acct:[id number] Age/Sex: 35 / F ADM Date: 06/10/25 Loc: US Attending Dr: Ángel Buckner D.O. Ordering Physician: Ángel Buckner D.O. Date of Service: 06/10/25 Procedure(s): US OB BPP w non-stress Accession Number(s): [id number] cc: Robles Charles D.O.; Ángel Buckner D.O. The [place] [address] Patient Name: ANGELA REYES MRN: [id number] date: 1990 Sex: F Assigned Patient Location: [facility] Current Patient Location: Accession/Order Number: [id number] Exam Date: 06/10/2025 18:36 Report Date: 06/10/2025 [...] Yusuf M.D. 06/10/2025 6:38 PM Dictation Location: [place] [address] Electronically authenticated by: [id number] Y Date: 06/10/2025 18:38 Dictated By: Roddy Yusuf M.D. Signed By: 06/10/251840 DD/ 183 TD/TT: Office Systems Technology Instructor: [facility] Radiology Study observation (narrative) [facility] US OB BPP W NON-STRESS Ordered By: Radiologist Radiology on 06-10-2025 [facility] Work Phone: US OB BPP W NON-STRESS on 06-03-[address] [address] Ultrasound Report Signed Patient: ANGELA REYES MR#: [id number] : 1990 Acct:[id number] Age/Sex: 35 / F ADM Date: 06/03/25 Loc: US Attending Dr: Ángel Buckner D.O. Ordering Physician: Ángel Buckner D.O. Date of Service: 06/03/25 Procedure(s): US OB BPP w non-stress Accession Number(s): [id number] cc: Robles Charles D.O.; Ángel Buckner D.O. The [address] [address] Patient Name: ANGELA REYES MRN: [facility]:[id number] date: 1990 Sex: F Assigned Patient Location: [facility] Current Patient Location: Accession/Order Number: [id number] Exam Date: 06/03/2025 14:22 Report Date: 06/03/2025 [...] Durand M.D. 06/03/2025 2:23 PM Dictation Location: [place] [address] Electronically authenticated by: [id number] Y Date: 06/03/2025 14:23 Dictated By: Aguilar Durand D.O. Signed By: 06/03/25 1425 DD/ 142 TD/TT: Office Systems Technology Instructor: [facility] Radiology Radiologbrittanie pa MD - 06/03/2025 The [place] [id number] Ultrasound Report Signed Patient: ANGELA REYES MR#: [id number] : 1990 Acct:[id number] Age/Sex: 35 / F ADM Date: 06/03/25 Loc: US Attending Dr: Ángel Buckner D.O. Ordering Physician: Ángel Buckner D.O. Date of Service: 06/03/25 Procedure(s): US OB BPP w non-stress Accession Number(s): [id number] cc: Robles Charles D.O.; Ángel Buckner D.O. [place] [id number] Patient Name: ANGELA REYES MRN: [id number]:[id number] date: 1990 Sex: F Assigned Patient Location: [facility] Current Patient Location: Accession/Order Number: [id number] Exam Date: 06/03/2025 14:22 Report Date: 06/03/2025 [...] Durand M.D. 06/03/2025 2:23 PM Dictation Location[facility] Electronically authenticated by: [id number] Y Date: 06/03/2025 14:23 Dictated By: Aguilar Durand D.O. Signed By: 06/03/25 1425 DD/ 142 TD/TT: Office Systems Technology Instructor: [facility] Radiology Study observation (narrative) [facility] US OB BPP W NON-STRESS Ordered By: Radiologist Radiology on 06-03-2025 [facility] Work Phone: Urinalysis macro (dipstick) [...] - Positive [facility] pH, UA 5.5 5 - 9 [facility] Protein, UA Negative Negative - 1999(20) ++++ mg/dL [facility] Spec Grav, UA 1.02 1 - 1.03 [facility] Urobilinogen, UA 1.0 0.2 - 12 mg/dL [facility] US OB GROWTHon 05-11-2025 [place] [address] Ultrasound Report Signed Patient: ANGELA REYES MR#: [id number] : 1990 Acct:[id number] Age/Sex: 35 / F ADM Date: 05/11/25 Loc: Attending Dr: Edson Dewitt Ordering Physician: Edson Dewitt Date of Service: 05/11/25 Procedure(s): US OB growth Accession Number(s): [id number] cc: Robles Charles D.O.; Edson Dewitt [place] [address] Patient Name: ANGELA REYES MRN: [id number] date: 1990 Sex: F Assigned Patient Location: Current Patient Location: Accession/Order Number: [id number] Exam Date: 05/11/2025 14:38 Report Date: 05/11/2025 [...] anatomic measurements. Appropriate growth. Impression dictated by: Zully Jaramillo Jr.OCuauhtemoc 05/11/2025 2:40 PM Dictation Location: [place] [address] Electronically authenticated by: [id number] Y Date: 05/11/2025 14:40 Dictated By: Justin Mack M.D. Signed By: 05/11/25 1442 DD/ 1440 TD/TT: Office Systems Technology Instructor: [facility] Radiology, Radiologbrittanie ap MD - 05/11/2025 [place] [address] Ultrasound Report Signed Patient: ANGELA REYES MR#: [id number] : 1990 Acct:[id number] Age/Sex: 35 / F ADM Date: 05/11/25 Loc: US Attending Dr: Edson Dewitt Ordering Physician: Edson Dewitt Date of Service: 05/11/25 Procedure(s): US OB growth Accession Number(s): [id number] cc: Robles Charles D.O.; Edson Dewitt [place] [address] Patient Name: ANGELA REYES MRN: [facility]:[id number] date: 1990 Sex: F Assigned Patient Location: Current Patient Location: US Accession/Order Number: [id number] Exam Date: 05/11/2025 14:38 Report Date: 05/11/2025 [...] 05/11/2025 2:40 PM Dictation Location: [place] [address] Electronically authenticated by: [id number] Y Date: 05/11/2025 14:40 Dictated By: Justin Mack M.D. Signed By: 05/11/25 1442 DD/ 39 TD/TT: Office Systems Technology Instructor: [facility] Radiology Study observation (narrative) [facility] US OB GROWTHOrdered By: Reg ologist Radiology on 05-11-2025 [facility] Work Phone: ALL CBC WITH AUTO DIFFon BASOPHILS ABSOLUTE AUTO 0 N [facility] Basophils/100 WBC (Bld) 0.2 % 0.2 - [...] [facility] Monocytes/100 WBC (Bld) 6 % 1.7 - 12.0 % [facility] NEUTROPHILS ABSOLUTE AUTO 7.7 High [facility] Neutrophils/100 WBC (Bld) 76.4 % High 43.0 - 75.0 % [facility] Platelet mean volume (Bld) [Entitic vol] 9 fL Low 9.5 - 13.5 fL [facility] EO # 0.1 [facility] [address] [facility] RBC 3.25 Low [facility] WBC 10.1 [facility] GLUCOSE 1 [...] II, MD, PHD at 21-Apr-2025 12:15:59 PM [facility] Normal Not Available Comment on above: [...] - 12 mg/dL [facility] US OB ANATOMYon 03-21-[address] [address] Ultrasound Report Signed Patient: ANGELA REYES MR#: [id number] : 1990 Acct:[id number] Age/Sex: 35 / F ADM Date: 03/20/25 Loc: US Attending Dr: Deisy Villar Ordering Physician: Deisy Villar Date of Service: 03/20/25 Procedure(s): US OB anatomy Accession Number(s): [id number] cc: Deisy Villar; Robles Charles D.O. [address] [address] Patient Name: ANGELA REYES MRN: [facility]:[id number] date: 1990 Sex: F Assigned Patient Location: Current Patient Location: Accession/Order Number: [id number] Exam Date: 03/21/2025 13:12 Report Date: 03/21/2025 [...] Aguilar Durand M.D.03/21/2025 1:16 PM Dictation Location: [place] [address] Electronically authenticated by: [id number] Y Date: 03/21/2025 13:16 Dictated By: Aguilar Durand D.O. Signed By: 03/21/25 1319 DD/ 15 TD/TT: Office Systems Technology Instructor: [facility] Radiology Radiologbrittanie pa MD - 03/21/2025 [place] [address] Ultrasound Report Signed Patient: ANGELA REYES MR#: [id number] : 1990 Acct:[id number] Age/Sex: 35 / F ADM Date: 03/20/25 Loc: US Attending Dr: Deisy Villar Ordering Physician: Deisy Villar Date of Service: 03/20/25 Procedure(s): US OB anatomy Accession Number(s): [id number] cc: Deisy Villar; Robles Charles D.O. The [address] [address] Patient Name: ANGELA REYES MRN: [facility]:[id number] date: 1990 Sex: F Assigned Patient Location: US Current Patient Location: Accession/Order Number: [id number] Exam Date: 03/21/2025 13:12 Report Date: 03/21/2025 [...] Aguilar Durand M.D.03/21/2025 1:16 PM Dictation Location: [place] [address] Electronically authenticated by: [id number] Y Date: 03/21/2025 13:16 Dictated By: Aguilar Durand D.O. Signed By: 03/21/25 1319 DD/ 1316 TD/TT: Office Systems Technology Instructor: [facility] Radiology Study observation (narrative) [facility] US OB ANATOMYOrdered By: Rad iologist Radiology on 03-21-2025 [facility] Work Phone: US OB CERVICAL LENGTHon 03-01 [place] [address] Ultrasound Report Signed Patient: ANGELA REYES MR#: [id number] : 1990 Acct:[id number] Age/Sex: 35 / F ADM Date: 03/20/25 Loc: US Attending Dr: Deisy Villar Ordering Physician: Deisy Villar Date of Service: 03/20/25 Procedure(s): US OB cervical length Accession Number(s): [id number] cc: Robles Ronquillo D.O. The [address] [address] Patient Name: ANGELA REYES MRN: [facility]:[id number] date: 1990 Sex: F Assigned Patient Location: US Current Patient Location: Accession/Order Number: [id number] Exam Date: 03/21/2025 09:18 Report Date: 03/21/2025 09:19 At the request of: DEISY VILLAR Procedure: US OB cervical length Ultrasound assessment of the cervical length The cervical length is 3.8 cm. The cervical os is closed. US/US OB cervical length IMPRESSION: #3.8 cm cervical length. Impression dictated by: Aguilar Durand M.D.03/21/2025 9:19 AM Dictation Location: [place] [address] Electronically authenticated by: [id number] Y Date: 03/21/2025 09:19 Dictated By: Aguilar Durand D.O. Signed By: 03/21/25921 DD/ 8 TD/TT: Office Systems Technology Instructor: [facility] Radiology, Radiologi MD ember - 03/21/2025 [place] [address] Ultrasound Report Signed Patient: ANGELA REYES MR#: [id number] : 1990 Acct:[id number] Age/Sex: 35 / F ADM Date: 03/20/25 Loc: US Attending Dr: Deisy Villar Ordering Physician: Deisy Villar Date of Service: 03/20/25 Procedure(s): US OB cervical length Accession Number(s): [id number] cc: Robles Ronquillo D.O. The [address] [id number] Patient Name: ANGELA REYES MRN: [facility]:[id number] date: 1990 Sex: F Assigned Patient Location: US Current Patient Location: Accession/Order Number: [id number] Exam Date: 03/21/2025 09:18 Report Date: 03/21/2025 09:19 At the request of: DEISY VILLAR Procedure: US OB cervical length Ultrasound assessment of the cervical length The cervical length is 3.8 cm. The cervical os is closed. US/US OB cervical length IMPRESSION: #3.8 cm cervical length. Impression dictated by: Aguilar Durand M.D.03/21/2025 9:19 AM Dictation Location: [employer] Electronically authenticated by: [id number] Y Date: 03/21/2025 09:19 Dictated By: Aguilar Durand D.O. Signed By: 03/21/25921 DD/ 8 TD/TT: Office Systems Technology Instructor: [facility] Radiology Study observation (narrative) [facility] US OB CERVICAL LENGTHOrdered By: Radiologist Radiology on 03-21-2025 [facility] Work Phone: IGP,APTIMA HPV,AGE GDLNon AGE GDLN ACOG TESTING Note . [facility] Comment on above: TESTS RESULT FLAG UN ITS REF RANGE LAB Clinician Provided Cytology Information Source.............Cervix Other.............. No. of containers..01 ThinPrep Vial Age Algo ACOG Lara... 30- 01 FLAG LEGEND: L-Low Normal,H-High Normal,LL-Alert Low,HH-Alert High <-Panic Low,>-Panic High,A-Abnormal,AA-Critical Abnormal Performed at: 01 =[address] [address] Ilana Heath MD, HPV APTIMA Negative Negative [facility] Comment on above: This nucleic acid am plification test detects fourteen high- risk HPV types (16,18,31,33,35,39,45,51,52,56,58,59,66,68) without differentiation. Performed at: =[address] [id number] Dentist/Owner: Ilana Heath MD, Phone: [phone] Performed at: [address] [id number] Dentist/Owner: Ilana Heath MD, Phone: [phone] IGP, APTIMA HPV, RFX 16/18,45 Note . [facility] Comment on above: TESTS RESULT FLAG UN ITS REF RANGE LAB DIAGNOSIS: 02 NEGATIVE FOR INTRAEPITHELIAL LESION OR MALIGNANCY. THIS SPECIMEN WAS RESCREENED PART OF OUR INSOLE CHANNELER PROGRAM. Specimen adequacy: 02 Satisfactory for evaluation. No endocervical component is identified. Performed by: 03 Eugenia Kennedy, Store Stock Help (ASCP) QC reviewed by: 02 Meredith Chávez, Economics Analyst . 02 Note: Note 02 The Pap [...] High,A-Abnormal,AA-Critical Abnormal Performed at: 02 [address] [facility] [address] [address] Ilana Heath MD, 03 KWCYT [facility] [place] [facility] [address] [place] [address] Lloyd Kim MD, SPATULA-ALONE CERVIX [facility] RECURRENT VAGINITIS (HTRX)on 03-03-2025 ATOPOBIUM VAGINAE 0 [facility] ATOPOBIUM VAGINAE Not detected [facility] BVAB 2,3 (BACTERIAL VAGINOSIS ASSOCIATED BACTERIA 2, 3); MOBILUNCUS SPP 0 [facility] BVAB 2,3 (BACTERIAL VAGINOSIS ASSOCIATED BACTERIA [...] - 12 mg/dL [facility] Urinalysis macro (dipstick) panel (U)on 02-02-2025 Bilirubin, [...] - 12 mg/dL [facility] ALL CBC WITH AUTO DIFFon BASOPHILS ABSOLUTE [...] [facility] TB RBC 3.71 Low [facility] WBC 8 [facility] [place] [...] II, MD, PHD at 09-Jan-2025 09:10:54 AM [facility] Normal Not Available Comment on above: Order Comment: US OB TRANSVAGINAL No LMP recorded. [facility] PREG QUANT HCGon 025 HCG QUANTITATIVE [address] mIU/mL [facility] Comment on above: 5-50 0.2-1 WEEK 50-500 1-2 WEEKS 100-5,000 2-3 WEEKS 500-10,000 3-4 WEEKS 1,000-50,000 4-5 WEEKS 10,000-100,000 5-6 WEEKS 15,000-200,000 6-8 WEEKS 10,000-100,000 2-[facility] HCGon 025 HCG QUANTITATIVE [address]476 mIU/mL [facility] Comment on above: 5-50 0.2-1 WEEK 50-500 1-2 WEEKS 100-5,000 2-3 WEEKS 500-10,000 3-4 WEEKS 1,000-50,000 4-5 WEEKS 10,000-100,000 5-6 WEEKS 15,000-200,000 6-8 WEEKS 10,000-100,000 2[facility] %Ordered By: Delano Francis on 09-22-2024 Basophils/100 WBC (Bld) 0.6 % Normal . [facility] Comment on above: Performed By: #### D HEAS, LC T4, [id number], SEROTON, TEST F + T, T3R, THYGLOB AB, ESTRADIOL, TPO, SHBG, ESTRONE, INSULIN, PROG #### [facility] , #### T4F, TRISTEN, TSH3, A1C WTH eA, FILIBERTO, GLU, T3F #### [address] Automated basophil countOrde red By: Delano Francis on 09-22-2024 Basophils (Bld) [#/Vol] 0.0 10*3/uL Normal 0.0-0.2 [facility] Comment on above: Result Comment: PERF ORMED BY: [place] [address] PATHOLOGIST PROCESS MAINTENANCE TECHNICIAN JOSE GOEL M.D. Performed By: #### D HEAS, LC T4, [id number], SEROTON, TEST F + T, T3R, THYGLOB AB, ESTRADIOL, TPO, SHBG, ESTRONE, INSULIN, PROG #### [facility] , #### T4F, TRISTEN, TSH3, A1C WTH eA, FILIBERTO, GLU, T3F #### [address] Automated blood monocyte cou ntOrdered By: Delano Francis on 09-22-2024 Monocytes (Bld) [#/Vol] 0.4 10*3/uL Normal 0.0-0.8 [facility] Comment on above: Performed By: #### D HEAS, LC T4, [id number], SEROTON, TEST F + T, T3R, THYGLOB AB, ESTRADIOL, TPO, SHBG, ESTRONE, INSULIN, PROG #### [facility] , #### T4F, TRISTEN, TSH3, A1C WTH eA, FILIBERTO, GLU, T3F #### [address] Automated eosinophil %Ordere d By: Delano Francis on 09-22-2024 Eosinophils/100 WBC (Bld) 1.7 % Normal . [facility] Comment on above: Performed By: #### D HEAS, LC T4, [id number], SEROTON, TEST F + T, T3R, THYGLOB AB, ESTRADIOL, TPO, SHBG, ESTRONE, INSULIN, PROG #### [facility] , #### T4F, TRISTEN, TSH3, A1C WTH eA, FILIBERTO, GLU, T3F #### [facility] [address] Automated eosinophil countOr dered By: Delano Francis on 09-22-2024 Eosinophils (Bld) [#/Vol] 0.1 10*3/uL Normal 0.0-0.45 [facility] Comment on above: Performed By: #### D HEAS, LC T4, [id number], SEROTON, TEST F + T, T3R, THYGLOB AB, ESTRADIOL, TPO, SHBG, ESTRONE, INSULIN, PROG #### [facility] , #### T4F, TRISTEN, TSH3, A1C WTH eA, FILIBERTO, GLU, T3F #### [address] Automated monocyte %Ordered By: Delano Francis on 09-22-2024 Monocytes/100 WBC (Bld) 8.7 % Normal . [facility] Comment on above: Performed By: #### D HEAS, LC T4, [id number], SEROTON, TEST F + T, T3R, THYGLOB AB, ESTRADIOL, TPO, SHBG, ESTRONE, INSULIN, PROG #### [facility] , #### T4F, TRISTEN, TSH3, A1C WTH eA, FILIBERTO, GLU, T3F #### [address] Automated neutrophil %Ordere d By: Delano Francis on 09-22-2024 Neutrophils/100 WBC (Bld) 63.7 % Normal . [facility] Comment on above: Performed By: #### D HEAS, LC T4, [id number], SEROTON, TEST F + T, T3R, THYGLOB AB, ESTRADIOL, TPO, SHBG, ESTRONE, INSULIN, PROG #### [facility] , #### T4F, TRISTEN, TSH3, A1C WTH eA, FILIBERTO, GLU, T3F #### [facility] [address] [place] [address] [place] Basophils Auto (Bld) [#/Vol] Ordered By: Delano Francis on 09-22-2024 Basophils (Bld) [#/Vol] Automated basophil count 0.0-0.2 [facility] Basophils/100 WBC Auto (Bld) Ordered By: Delano Francis on 09-22-2024 Basophils/100 WBC (Bld) Automated basophil % . [facility] Calcium [Mass/volume] in Ser um or PlasmaOrdered By: Delano Francis on 09-22-2024 Calcium [Mass/Vol] 9.4 mg/dL Normal 8.6-10.[address] [facility] Comment on above: Performed By: #### Adria NATHAN, LC T4, [id number], SEROTON, TEST F + T, T3R, THYGLOB AB, ESTRADIOL, TPO, SHBG, ESTRONE, INSULIN, PROG #### [facility] , #### T4F, TRISTEN, TSH3, A1C WTH eA, FILIBERTO, GLU, T3F #### [facility] [address] Calcium [Mass/Vol] Calcium [Mass/volume ] in Serum or Plasma 8.6-10.3 [facility] Carbon dioxide, total [Moles /volume] in Serum or PlasmaOrdered By: Delano Francis on 09-22-2024 CO2 [Moles/Vol] 29.2 mmol/L Normal 21.0-31.0 [facility] Comment on above: Performed By: #### Adria HEAS, LC T4, [id number], SEROTON, TEST F + T, T3R, THYGLOB AB, ESTRADIOL, TPO, SHBG, ESTRONE, INSULIN, PROG #### [facility] , #### T4F, TRISTEN, TSH3, A1C WTH eA, FILIBERTO, GLU, T3F #### [facility] [address] CO2 [Moles/Vol] Carbon dioxide, tota l [Moles/volume] in Serum or Plasma 21.0-31.0 [facility] Chloride [Moles/volume] in S stevo or PlasmaOrdered By: Delano Francis on 09-22-2024 Chloride [Moles/Vol] 105 mmol/L Normal [address] [place] [address] Comment on above: Performed By: #### D VENITA, JOSSE T4, [id number], SEROTON, TEST F + T, T3R, THYGLOB AB, ESTRADIOL, TPO, SHBG, ESTRONE, INSULIN, PROG #### [facility] , #### T4F, TRISTEN, TSH3, A1C WTH eA, FILIBERTO, GLU, T3F #### [facility] [address] [place] [address] Chloride [Moles/Vol] Chloride [Moles/vol ume] in Serum or Plasma [address] [place] [address] Cholesterol [Mass/volume] in Serum or PlasmaOrdered By: Delano Francis on 09-22-2024 Cholesterol [Mass/Vol] 217 mg/dL High 140-200 [facility] Comment on above: Chol less than 200 m g/dl low riskChol 201-239 mg/dl borderline riskChol 240 mg/dl and greater high risk Result Comment: Chol less than 200 mg/dl low risk Chol 201-239 mg/dl borderline risk Chol 240 mg/dl and greater high risk Performed By: #### D VENITA, LC T4, [id number], SEROTON, TEST F + T, T3R, THYGLOB AB, ESTRADIOL, TPO, SHBG, ESTRONE, INSULIN, PROG #### [facility] , #### T4F, TRISTEN, TSH3, A1C WTH eA, FILIBERTO, GLU, T3F #### [facility] [address] Cholesterol [Mass/Vol] Cholesterol [Mass/volume] in Serum or Plasma High 140-200 [facility] Comment on above: Chol less than 200 m g/dl low riskChol 201-239 mg/dl borderline riskChol 240 mg/dl and greater high risk Cholesterol in HDL [Mass/vol ume] in Serum or PlasmaOrdered By: Delano Francis on 09-22-2024 Cholesterol in HDL [Mass/Vol] Serum or plasma high density lipoprotein (HDL) cholesterol measurement [facility] Comment on above: HDL CHOL ATP-III CLA SSIFICATION Cardiovascular RiskHDL > or equal to 60 mg/dL LOWHDL < 40 mg/dL HIGH Cholesterol in LDL Calc [Mas s/Vol]Ordered By: Delano Francis on 09-22-2024 Cholesterol in LDL [Mass/Vol] 148 mg/dL High 0-100 [facility] Comment on above: LDL ATP III CLASSIFI CATIONLDL less than 100 mg/dL OptimalLDL 100-129 mg/dL Near or above optimalLDL 130-159 mg/dL Borderline highLDL 160-189 mg/dL HighLDL greater than 189 mg/dL Very high Cholesterol in LDL [Mass/Vol] Cholesterol in LDL [Mass/volume] in Serum or Plasma by calculation High 0-100 [facility] Comment on above: LDL ATP III CLASSIFI CATIONLDL less than 100 mg/dL OptimalLDL 100-129 mg/dL Near or above optimalLDL 130-159 mg/dL Borderline highLDL 160-189 mg/dL HighLDL greater than 189 mg/dL Very high Cholesterol in VLDL Calc [Ma ss/Vol]Ordered By: Delano Francis on 09-22-2024 Cholesterol in VLDL [Mass/Vol] 10 mg/dL [facility] Cholesterol in VLDL [Mass/Vol] Cholesterol in VLDL [Mass/volume] in Serum or Plasma by calculation [facility] Creatinine [Mass/volume] in Serum or PlasmaOrdered By: Delano Francis on 09-22-2024 Creatinine [Mass/Vol] 0.73 mg/dL Normal 0.60-1.20 [facility] Comment on above: Performed By: #### D VENITA, JOSSE T4, [id number], SEROTON, TEST F + T, T3R, THYGLOB AB, ESTRADIOL, TPO, SHBG, ESTRONE, INSULIN, PROG #### [facility] , #### T4F, TRISTEN, TSH3, A1C WTH eA, FILIBERTO, GLU, T3F #### [facility] [address] Creatinine [Mass/Vol] Creatinine [Mass/v olume] in Serum or Plasma 0.60-1.20 [facility] Employee Basic Metabolic Olvera anastacio 09-22-2024 GFR/1.73 sq M.predicted MDRD (S/P/Bld) [Vol rate/Area] mL/min/{1.73_m2} Normal [facility] Comment on above: Performed By: #### D HEAS, LC T4, [id number], SEROTON, TEST F + T, T3R, THYGLOB AB, ESTRADIOL, TPO, SHBG, ESTRONE, INSULIN, PROG #### [facility] , #### T4F, TRISTEN, TSH3, A1C WTH eA, FILIBERTO, GLU, T3F #### [facility] [address] [place] [address] Employee Complete Blood Coun ton 09-22-2024 Mean Corpuscular HGB Conc 34.2 g/dL Normal 32.0-35.0 [facility] Comment on above: Performed By: #### D HEAS, LC T4, [id number], SEROTON, TEST F + T, T3R, THYGLOB AB, ESTRADIOL, TPO, SHBG, ESTRONE, INSULIN, PROG #### [facility] , #### T4F, TRISTEN, TSH3, A1C WTH eA, FILIBERTO, GLU, T3F #### [facility] [address] [place] [address] NRBC% 0.0 /100{WBC} Normal 0-0.5 [facility] Comment on above: Performed By: #### D HEAS, LC T4, [id number], SEROTON, TEST F + T, T3R, THYGLOB AB, ESTRADIOL, TPO, SHBG, ESTRONE, INSULIN, PROG #### [facility] , #### T4F, TRISTEN, TSH3, A1C WTH eA, FILIBERTO, GLU, T3F #### [facility] [address] [place] [address] Employee Lipid Profileon LDL Cholesterol,Calculated 148 mg/dL High 0-100 [facility] Comment on above: Result Comment: LDL ATP III CLASSIFICATION LDL less than 100 mg/dL Optimal LDL 100-129 mg/dL Near or above optimal LDL 130-159 mg/dL Borderline high LDL 160-189 mg/dL High LDL greater than 189 mg/dL Very high Performed By: #### D HEAS, LC T4, [id number], SEROTON, TEST F + T, T3R, THYGLOB AB, ESTRADIOL, TPO, SHBG, ESTRONE, INSULIN, PROG #### [facility] , #### T4F, TRISTEN, TSH3, A1C WTH eA, FILIBERTO, GLU, T3F #### [address] Triglyceride w/Reflex 52 mg/dL Normal 0-149 [facility] Comment on above: Result Comment: TRIG ATP III CLASSIFICATION TRIG less than 150 mg/dL Normal TRIG 150-199 mg/dL Borderline high TRIG 200-500 mg/dL High TRIG greater than 500 mg/dL Very high Standard traceable to the Center for Disease Conrtrol and Prevention (CDC) test method. Performed By: #### D HEAS, LC T4, [id number], SEROTON, TEST F + T, T3R, THYGLOB AB, ESTRADIOL, TPO, SHBG, ESTRONE, INSULIN, PROG #### [facility] , #### T4F, TRISTEN, TSH3, A1C WTH eA, FILIBERTO, GLU, T3F #### [address] VLDL CHOLESTEROL 10 mg/dL Normal [facility] Comment on above: Performed By: #### D HEAS, LC T4, [id number], SEROTON, TEST F + T, T3R, THYGLOB AB, ESTRADIOL, TPO, SHBG, ESTRONE, INSULIN, PROG #### [facility] , #### T4F, TRISTEN, TSH3, A1C WTH eA, FILIBERTO, GLU, T3F #### [address] Employee Thyroid Stim [employer] lonnie 10-24-2024 Employee Thyroid Stim [employer] 2.30 u[iU]/mL Normal 0.45-5.33 [facility] Comment on above: Result Comment: PERF ORMED BY: [place] [address] PATHOLOGIST PROCESS MAINTENANCE TECHNICIAN JOSE GOEL M.D. Performed By: #### D HEAS, LC T4, [id number], SEROTON, TEST F + T, T3R, THYGLOB AB, ESTRADIOL, TPO, SHBG, ESTRONE, INSULIN, PROG #### [facility] , #### T4F, TRISTEN, TSH3, A1C WTH eA, FILIBERTO, GLU, T3F #### [facility] [address] [place] [address] [place] Eosinophils Auto (Bld) [#/Vo l]Ordered By: Delano Francis on 09-22-2024 Eosinophils (Bld) [#/Vol] Automated eosinophil count 0.0-0.45 [facility] Eosinophils/100 WBC Auto (Bl d)Ordered By: Delano Francis on 09-22-2024 Eosinophils/100 WBC (Bld) Automated eosinophil % . [facility] Erythrocyte distribution wid th Auto (RBC) [Ratio]Ordered By: Delano Francis on 09-22-2024 Erythrocyte distribution width (RBC) [Ratio] Erythrocyte distribution width [Ratio] by Automated count 11.9-15.3 [facility] Erythrocyte distribution wid th [Ratio] by Automated countOrdered By: Delano Francis on 09-22-2024 Erythrocyte distribution width (RBC) [Ratio] 13.2 % Normal 11.9-15.3 [facility] Comment on above: Performed By: #### D HEAS, LC T4, [id number], SEROTON, TEST F + T, T3R, THYGLOB AB, ESTRADIOL, TPO, SHBG, ESTRONE, INSULIN, PROG #### [facility] , #### T4F, TRISTEN, TSH3, A1C WTH eA, FILIBERTO, GLU, T3F #### [facility] [address] [place] [address] [place] Erythrocytes [#/volume] in B lood by Automated countOrdered By: Delano Francis on 09-22-2024 RBC (Bld) [#/Vol] 3.91 10*6/uL Normal 3.60-5.00 [facility] Comment on above: Performed By: #### D HEAS, LC T4, [id number], SEROTON, TEST F + T, T3R, THYGLOB AB, ESTRADIOL, TPO, SHBG, ESTRONE, INSULIN, PROG #### [facility] , #### T4F, TRISTEN, TSH3, A1C WTH eA, FILIBERTO, GLU, T3F #### [facility] [address] [place] [id number] [place] Glucose [Mass/volume] in Ser um or PlasmaOrdered By: Delano Francis on 09-22-2024 Glucose [Mass/Vol] 83 mg/dL Normal 70-[address] [facility] Comment on above: Performed By: #### D DANIELLEAS, LC T4, [id number], SEROTON, TEST F + T, T3R, THYGLOB AB, ESTRADIOL, TPO, SHBG, ESTRONE, INSULIN, PROG #### [facility] , #### T4F, TIRSTEN, TSH3, A1C WTH eA, FILIBERTO, GLU, T3F #### [facility] [address] [place] [id number] [place] Glucose [Mass/Vol] Glucose [Mass/volume ] in Serum or Plasma 70-100 [facility] Hematocrit Auto (Bld) [Volum e fraction]Ordered By: Delano Francis on 09-22-2024 Hematocrit (Bld) [Volume fraction] Hematocrit [Volume Fraction] of Blood by Automated count 34.0-46.4 [facility] Hematocrit [Volume Fraction] of Blood by Automated countOrdered By: Delano Francis on 09-22-2024 Hematocrit (Bld) [Volume fraction] 35.9 % Normal 34.0-46.4 [facility] Comment on above: Performed By: #### D HEAS, LC T4, [id number], SEROTON, TEST F + T, T3R, THYGLOB AB, ESTRADIOL, TPO, SHBG, ESTRONE, INSULIN, PROG #### [facility] , #### T4F, TRISTEN, TSH3, A1C WTH eA, FILIBERTO, GLU, T3F #### [facility] [address] [place] [address] [place] Hemoglobin [Mass/volume] in BloodOrdered By: Delano Francis on 09-22-2024 Hemoglobin (Bld) [Mass/Vol] 12.3 g/dL Normal 11.8-15.4 [facility] Comment on above: Performed By: #### Adria NATHAN, LC T4, [id number], SEROTON, TEST F + T, T3R, THYGLOB AB, ESTRADIOL, TPO, SHBG, ESTRONE, INSULIN, PROG #### [facility] , #### T4F, TRISTEN, TSH3, A1C WTH eA, FILIBERTO, GLU, T3F #### [facility] [address] [place] [address] [place] Hemoglobin (Bld) [Mass/Vol] Hemoglobin [Mass/volume] in Blood 11.8-15.4 [facility] Leukocytes [#/volume] correc calvin for nucleated erythrocytes in Blood by Automated counOrdered By: Delano Francis on 09-22-2024 WBC corrected for nucl RBC Auto (Bld) [#/Vol] 5.1 10*3/uL 3.8-11.6 [facility] WBC corrected for nucl RBC Auto (Bld) [#/Vol] Leukocytes [#/volume] corrected for nucleated erythrocytes in Blood by Automated coun 3.8-11.6 [facility] Leukocytes [#/volume] in Blo od by Automated countOrdered By: Delano Francis on 09-22-2024 WBC (Bld) [#/Vol] 5.1 10*3/uL Normal 3.8-11.[address] [facility] Comment on above: Performed By: #### Adria NATHAN, LC T4, [id number], SEROTON, TEST F + T, T3R, THYGLOB AB, ESTRADIOL, TPO, SHBG, ESTRONE, INSULIN, PROG #### [facility] , #### T4F, TRISTEN, TSH3, A1C WTH eA, FILIBERTO, GLU, T3F #### [address] Lymphocytes Auto (Bld) [#/Vo l]Ordered By: Delano Francis on 09-22-2024 Lymphocytes (Bld) [#/Vol] Lymphocytes [#/volume] in Blood by Automated count 1.00-4.8 [facility] Lymphocytes [#/volume] in Bl ood by Automated countOrdered By: Delano Francis on 09-22-2024 Lymphocytes (Bld) [#/Vol] 1.3 10*3/uL Normal 1.00-4.8 [facility] Comment on above: Performed By: #### D HEAS, LC T4, [id number], SEROTON, TEST F + T, T3R, THYGLOB AB, ESTRADIOL, TPO, SHBG, ESTRONE, INSULIN, PROG #### [facility] , #### T4F, TRISTEN, TSH3, A1C WTH eA, FILIBERTO, GLU, T3F #### [address] Lymphocytes/100 WBC Auto (Bl d)Ordered By: Delano Francis on 09-22-2024 Lymphocytes/100 WBC (Bld) Lymphocytes/100 leukocytes in Blood by Automated count . [facility] Lymphocytes/100 leukocytes i n Blood by Automated countOrdered By: Delano Francis on 09-22-2024 Lymphocytes/100 WBC (Bld) 25.3 % Normal . [facility] Comment on above: Performed By: #### D HEAS, LC T4, [id number], SEROTON, TEST F + T, T3R, THYGLOB AB, ESTRADIOL, TPO, SHBG, ESTRONE, INSULIN, PROG #### [facility] , #### T4F, TRISTEN, TSH3, A1C WTH eA, FILIBERTO, GLU, T3F #### [address] MCH Auto (RBC) [Entitic mass ]Ordered By: Delano Francis on 09-22-2024 MCH (RBC) [Entitic mass] MCH [Entitic mass] by Automated count 24.7-34.3 [facility] MCH [Entitic mass] by Automa calvin countOrdered By: Delano Francis on 09-22-2024 MCH (RBC) [Entitic mass] 31.4 pg Normal 24.7-34.3 [facility] Comment on above: Performed By: #### D VENITA, LC T4, [id number], SEROTON, TEST F + T, T3R, THYGLOB AB, ESTRADIOL, TPO, SHBG, ESTRONE, INSULIN, PROG #### [facility] , #### T4F, TRISTEN, TSH3, A1C WTH eA, FILIBERTO, GLU, T3F #### [facility] [address] MCHC Auto (RBC) [Mass/Vol]Or dered By: Delano Francis on 09-22-2024 MCHC (RBC) [Mass/Vol] 34.2 g/dL 32.0-35.0 [facility] MCHC (RBC) [Mass/Vol] MCHC [Mass/volume] by Automated count 32.0-35.0 [facility] MCV Auto (RBC) [Entitic vol] Ordered By: Delano Francis on 09-22-2024 MCV (RBC) [Entitic vol] MCV [Entitic vol ume] by Automated count 80-100 [facility] MCV [Entitic volume] by Auto mated countOrdered By: Delano Francis on 09-22-2024 MCV (RBC) [Entitic vol] 91.7 fL Normal 80-100 [facility] Comment on above: Performed By: #### D VENITA, LC T4, [id number], SEROTON, TEST F + T, T3R, THYGLOB AB, ESTRADIOL, TPO, SHBG, ESTRONE, INSULIN, PROG #### [facility] , #### T4F, TRISTEN, TSH3, A1C WTH eA, FILIBERTO, GLU, T3F #### [facility] [address] Monocytes Auto (Bld) [#/Vol] Ordered By: Delano Francis on 09-22-2024 Monocytes (Bld) [#/Vol] Automated blood monocyte count 0.0-0.8 [facility] Monocytes/100 WBC Auto (Bld) Ordered By: Delano Francis on 09-22-2024 Monocytes/100 WBC (Bld) Automated monocyte % . [facility] Neutrophils Auto (Bld) [#/Vo l]Ordered By: Delano Francis on 09-22-2024 Neutrophils (Bld) [#/Vol] Neutrophils [#/volume] in Blood by Automated count 1.8-7.7 [facility] Neutrophils [#/volume] in Bl ood by Automated countOrdered By: Delano Francis on 09-22-2024 Neutrophils (Bld) [#/Vol] 3.2 10*3/uL Normal 1.8-7.7 [facility] Comment on above: Performed By: #### D HEAS, LC T4, [id number], SEROTON, TEST F + T, T3R, THYGLOB AB, ESTRADIOL, TPO, SHBG, ESTRONE, INSULIN, PROG #### [facility] , #### T4F, TRISTEN, TSH3, A1C WTH eA, FILIBERTO, GLU, T3F #### [facility] [address] Neutrophils/100 WBC Auto (Bl d)Ordered By: Delano Francis on 09-22-2024 Neutrophils/100 WBC (Bld) Automated neutrophil % . [facility] No Panel InformationOrdered By: Delano Francis on 09-22-2024 Estimated GFR (CKD-EPI) > 60.0 mL/Min [facility] Creatinine Clearance (Chem N/A [facility] Nucleated erythrocytes [Pres ence] in Blood by Automated countOrdered By: Delano Francis on 09-22-2024 Nucleated RBC Auto Ql (Bld) 0.0 /100{WBC} 0-0.5 [facility] Nucleated RBC Auto Ql (Bld) Nucleated erythrocytes [Presence] in Blood by Automated count 0-0.5 [facility] Platelet mean volume Auto (B ld) [Entitic vol]Ordered By: Delano Francis on 09-22-2024 Platelet mean volume (Bld) [Entitic vol] Platelet mean volume [Entitic volume] in Blood by Automated count 6.3-10.7 [facility] Platelet mean volume [Entiti c volume] in Blood by Automated countOrdered By: Delano Francis on 09-22-2024 Platelet mean volume (Bld) [Entitic vol] 7.3 fL Normal 6.3-10.7 [facility] Comment on above: Performed By: #### D HEAS, LC T4, [id number], SEROTON, TEST F + T, T3R, THYGLOB AB, ESTRADIOL, TPO, SHBG, ESTRONE, INSULIN, PROG #### [facility] , #### T4F, TRISTEN, TSH3, A1C WTH eA, FILIBERTO, GLU, T3F #### [facility] [address] [place] [address] [place] Platelets Auto (Bld) [#/Vol] Ordered By: Delano Francis on 09-22-2024 Platelets (Bld) [#/Vol] Platelets [#/vol ume] in Blood by Automated count 150-450 [facility] Platelets [#/volume] in Bloo d by Automated countOrdered By: Delano Francis on 09-22-2024 Platelets (Bld) [#/Vol] 328 10*3/uL Normal 150-450 [facility] Comment on above: Performed By: #### D HEAS, LC T4, [id number], SEROTON, TEST F + T, T3R, THYGLOB AB, ESTRADIOL, TPO, SHBG, ESTRONE, INSULIN, PROG #### [facility] , #### T4F, TRISTEN, TSH3, A1C WTH eA, FILIBERTO, GLU, T3F #### [facility] [address] [place] [address] [place] Potassium [Moles/volume] in Serum or PlasmaOrdered By: Delano Francis on 09-22-2024 Potassium [Moles/Vol] 4.5 mmol/L Normal 3.5-5.1 [facility] Comment on above: Performed By: #### D HEAS, LC T4, [id number], SEROTON, TEST F + T, T3R, THYGLOB AB, ESTRADIOL, TPO, SHBG, ESTRONE, INSULIN, PROG #### [facility] , #### T4F, TRISTEN, TSH3, A1C WTH eA, FILIBERTO, GLU, T3F #### [facility] [address] Potassium [Moles/Vol] Potassium [Moles/v olume] in Serum or Plasma 3.5-5.1 [facility] RBC Auto (Bld) [#/Vol]Ordere d By: Delano Francis on 09-22-2024 RBC (Bld) [#/Vol] Erythrocytes [#/volu me] in Blood by Automated count 3.60-5.00 [facility] Serum or plasma anion gap de terminationOrdered By: Delano Francis on 09-22-2024 Anion gap [Moles/Vol] 8.3 mmol/L Normal 6.0-15.0 [facility] Comment on above: Performed By: #### D HEAS, LC T4, [id number], SEROTON, TEST F + T, T3R, THYGLOB AB, ESTRADIOL, TPO, SHBG, ESTRONE, INSULIN, PROG #### [facility] , #### T4F, TRISTEN, TSH3, A1C WTH eA, FILIBERTO, GLU, T3F #### [facility] [address] [place] [address] Anion gap [Moles/Vol] Serum or plasma an ion gap determination 6.0-15.0 [facility] Serum or plasma high density lipoprotein (HDL) cholesterol measurementOrdered By: Delano Francis on 09-22-2024 Cholesterol in HDL [Mass/Vol] 59 mg/dL Normal 23-92 [facility] Comment on above: HDL CHOL ATP-III CLA SSIFICATION Cardiovascular RiskHDL > or equal to 60 mg/dL LOWHDL < 40 mg/dL HIGH Result Comment: HDL CHOL ATP-III CLASSIFICATION Cardiovascular Risk HDL > or equal to 60 mg/dL LOW HDL < 40 mg/dL HIGH Performed By: #### D HEAS, LC T4, [id number], SEROTON, TEST F + T, T3R, THYGLOB AB, ESTRADIOL, TPO, SHBG, ESTRONE, INSULIN, PROG #### [facility] , #### T4F, TRISTEN, TSH3, A1C WTH eA, FILIBERTO, GLU, T3F #### [facility] [address] Serum or plasma total choles terol/high density lipoprotein (HDL) cholesterol mass ratOrdered By: Delano Francis on 09-22-2024 Cholesterol.total/Alivia sterol in HDL [Mass ratio] 3.7 {ratio} Normal <5.0 [facility] Comment on above: Performed By: #### D DANIELLEAS, LC T4, [id number], SEROTON, TEST F + T, T3R, THYGLOB AB, ESTRADIOL, TPO, SHBG, ESTRONE, INSULIN, PROG #### [facility] , #### T4F, TRISTEN, TSH3, A1C WTH eA, FILIBERTO, GLU, T3F #### [facility] [address] Cholesterol.total/Alivia sterol in HDL [Mass ratio] Serum or plasma total cholesterol/high density lipoprotein (HDL) cholesterol mass rat <5.0 [facility] Sodium [Moles/volume] in Ser um or PlasmaOrdered By: Delano Francis on 09-22-2024 Sodium [Moles/Vol] 138 mmol/L Normal 136-[address] [facility] Comment on above: Performed By: #### D HEAS, LC T4, [id number], SEROTON, TEST F + T, T3R, THYGLOB AB, ESTRADIOL, TPO, SHBG, ESTRONE, INSULIN, PROG #### [facility] , #### T4F, TRISTEN, TSH3, A1C WTH eA, FILIBERTO, GLU, T3F #### [facility] [address] [place] [address] Sodium [Moles/Vol] Sodium [Moles/volume ] in Serum or Plasma 136-145 [facility] Thyrotropin [Units/volume] i n Serum or PlasmaOrdered By: Delano Francis on 09-22-2024 TSH Qn 2.30 m[IU]/L 0.45-5.33 [facility] TSH Qn Thyrotropin [Units/volume] in Serum or Plasma 0.45-5.33 [facility] Triglyceride [Mass/volume] i n Serum or PlasmaOrdered By: Delano Francis on 09-22-2024 Triglyceride [Mass/Vol] 52 mg/dL 0-149 [facility] [facility] Comment on above: TRIG ATP III CLASSIF ICATIONTRIG less than 150 mg/dL NormalTRIG 150-199 mg/dL Borderline highTRIG 200-500 mg/dL High TRIG greater than 500 mg/dL Very highStandard traceable to the Center for Disease Conrtrol and Prevention (CDC) test method. Triglyceride [Mass/Vol] Triglyceride [Mass/volume] in Serum or Plasma 0-149 [facility] Comment on above: TRIG ATP III CLASSIF ICATIONTRIG less than 150 mg/dL NormalTRIG 150-199 mg/dL Borderline highTRIG 200-500 mg/dL High TRIG greater than 500 mg/dL Very highStandard traceable to the Center for Disease Conrtrol and Prevention (CDC) test method. Urea nitrogen [Mass/volume] in Serum or PlasmaOrdered By: Delano Francis on 09-22-2024 Urea nitrogen [Mass/Vol] 9 mg/dL Normal 06-23 [facility] Comment on above: Performed By: #### D VENITA, JOSSE T4, [id number], SEROTON, TEST F + T, T3R, THYGLOB AB, ESTRADIOL, TPO, SHBG, ESTRONE, INSULIN, PROG #### [facility] , #### T4F, TRISTEN, TSH3, A1C WTH eA, FILIBERTO, GLU, T3F #### [facility] [address] Urea nitrogen [Mass/Vol] Urea nitrogen [Mass/volume] in Serum or Plasma 06-23 [facility] WBC Auto (Bld) [#/Vol]Ordere d By: Delano Francis on 09-22-2024 WBC (Bld) [#/Vol] Leukocytes [#/volume ] in Blood by Automated count 3.8-11.6 [facility] IGP,APTIMA HPV,AGE GDLNon 10 -22-2024 AGE GDLN ACOG TESTING Note . [facility] Comment on above: TESTS RESULT FLAG UN ITS REF RANGE LAB Clinician Provided Cytology Information Source.............Cervix;Endocervix No. of containers..01 ThinPrep Vial Age Algo ACOG Lara... FLAG LEGEND: L-Low Normal,H-High Normal,LL-Alert Low,HH-Alert High <-Panic Low,>-Panic High,A-Abnormal,AA-Critical Abnormal Performed at: 01 =G [address] [id number] Ilana Heath MD, HPV APTIMA Negative Negative [facility] Comment on above: This nucleic acid am plification test detects fourteen high- risk HPV types (16,18,31,33,35,39,45,51,52,56,58,59,66,68) without differentiation. Performed at: =[facility] [address] [id number] Dentist/Owner: Ilana Heath MD, Phone: [phone] Performed at: - [address] [id number] Dentist/Owner: Ilana Heath MD, Phone: [phone] IGP, APTIMA HPV, RFX 16/18,45 Note . [facility] Comment on above: TESTS RESULT FLAG UN ITS REF RANGE LAB DIAGNOSIS: 02 NEGATIVE FOR INTRAEPITHELIAL LESION OR MALIGNANCY. Specimen adequacy: 02 Satisfactory for evaluation. No endocervical component is identified. Performed by: 02 Chema Camargo, Economics Analyst ([facility]) . 02 Note: Note 02 The [...] High,A-Abnormal,AA-Critical Abnormal Performed at: 02 [address] [facility] [address] [address] Ilana Heath MD, BRUSH-SPATULA CERVIX ENDOCERVIX [facility] 1,25 Dihydroxy Vit D Calcitr olon 01-07-2024 1,25 Dihydroxy Vit D Calcitrol 56.6 pg/mL Normal 24.8-81.5 [facility] Comment on above: Result Comment: Perf ormed at: - [facility] [address] [id number] Dentist/Owner: Quinton Wolf MD, Phone: [phone] Performed By: #### D HEAS, LC T4, [id number], SEROTON, TEST F + T, T3R, THYGLOB AB, ESTRADIOL, TPO, SHBG, ESTRONE, INSULIN, PROG #### [facility] , #### T4F, TRISTEN, TSH3, A1C WTH eA, FILIBERTO, GLU, T3F #### [facility] [address] A1C with Estimated Average G luon 01-07-2024 Glucose [Mass/Vol] 105 mg/dL Normal [facility] Comment on above: Result Comment: PERF ORMED BY: [place] [address] PATHOLOGIST PROCESS MAINTENANCE TECHNICIAN JOSE GOEL M.D. Performed By: #### D VENITA, LC T4, [id number], SEROTON, TEST F + T, T3R, THYGLOB AB, ESTRADIOL, TPO, SHBG, ESTRONE, INSULIN, PROG #### [facility] , #### T4F, TRISTEN, TSH3, A1C WTH eA, FILIBERTO, GLU, T3F #### [address] Antithyroglobulin Abon 01-07 Antithyroglobulin Ab <1.0 Normal 0.0-0.9 [facility] Comment on above: Result Comment: Thyr oglobulin Antibody measured by Helga Mariah Methodology Performed at: - [address] [id number] Dentist/Owner: Baudilio Leyva PhD, Phone: [phone] Performed By: #### D HEAS, LC T4, [id number], SEROTON, TEST F + T, T3R, THYGLOB AB, ESTRADIOL, TPO, SHBG, ESTRONE, INSULIN, PROG #### [facility] , #### T4F, TRISTEN, TSH3, A1C WTH eA, FILIBERTO, GLU, T3F #### [place] [id number] [facility] Cortisolon 01-07-2024 Cortisol 6.8 ug/dL Normal [facility] Comment on above: Result Comment: Refe rence range: AM 6 - 24 ug/dl PM <10 ug/dl [facility] Laboratory manager mac and method: [employer] UNICEL DXI, POLYCLONAL ANTIBODY CORTISOL ASSAY. PERFORMED BY: [place] [address] PATHOLOGIST PROCESS MAINTENANCE TECHNICIAN JOSE GOEL M.D. Performed By: #### D HEAS, LC T4, [id number], SEROTON, TEST F + T, T3R, THYGLOB AB, ESTRADIOL, TPO, SHBG, ESTRONE, INSULIN, PROG #### [facility] , #### T4F, TRISTEN, TSH3, A1C WTH eA, FILIBERTO, GLU, T3F #### [address] Dehydroepiandrosterone Sulfa teOrdered By: Deisy Villar on 01-07-2024 Dehydroepiandrosterone Sulfate 174.0 ug/dL Normal 84.8-378.0 [facility] Comment on above: Performed By: #### D HEAS, LC T4, [id number], SEROTON, TEST F + T, T3R, THYGLOB AB, ESTRADIOL, TPO, SHBG, ESTRONE, INSULIN, PROG #### [facility] , #### T4F, TRISTEN, TSH3, A1C WTH eA, FILIBERTO, GLU, T3F #### [address] Estradiolon 01-07-2024 Estradiol 300.0 pg/mL Normal . [facility] Comment on above: Result Comment: Adul t Female Range Follicular phase 12.5 - 166.0 Ovulation phase 85.8 - 498.0 Luteal phase 43.8 - 211.0 Postmenopausal <6.0 - 54.7 1st trimester 215.0 - >4300.0 Elías ECLIA methodology Performed By: #### D HEAS, LC T4, [id number], SEROTON, TEST F + T, T3R, THYGLOB AB, ESTRADIOL, TPO, SHBG, ESTRONE, INSULIN, PROG #### [facility] , #### T4F, TRISTEN, TSH3, A1C WTH eA, FILIBERTO, GLU, T3F #### [facility] [address] [place] [address] [place] Estrone, Serumon 01-07-2024 Estrone, Serum 46 pg/mL Normal 27-231 [facility] Comment on above: Result Comment: Rang e Adult (Premenopausal) 27 - 231 Menstrual Cycle (1-10 days) 19 - 149 Menstrual Cycle (11-20 days) 32 - 176 Menstrual Cycle (21-30 days) 37 - 200 Performed at: [facility] [address] [id number] Dentist/Owner: Quinton Wolf MD, Phone: [phone] Performed By: #### D VENITA, LC T4, [id number], SEROTON, TEST F + T, T3R, THYGLOB AB, ESTRADIOL, TPO, SHBG, ESTRONE, INSULIN, PROG #### [facility] , #### T4F, TRISTEN, TSH3, A1C WTH eA, FILIBERTO, GLU, T3F #### [facility] [address] [place] [address] [place] Ferritin [Mass/volume] in Se rum or PlasmaOrdered By: Deisy Villar on 01-07-2024 Ferritin [Mass/Vol] 44.8 ng/mL Normal 11.0-306.8 [facility] Comment on above: Performed By: #### D VENITA, LC T4, [id number], SEROTON, TEST F + T, T3R, THYGLOB AB, ESTRADIOL, TPO, SHBG, ESTRONE, INSULIN, PROG #### [facility] , #### T4F, TRISTEN, TSH3, A1C WTH eA, FILIBERTO, GLU, T3F #### [facility] [address] [place] [id number] [facility] Free testosterone measuremen t by LC-MS/MSOrdered By: Deisy Villar on 01-07-2024 Testosterone Free [Mass/Vol] 0.3 pg/mL 0.0-4.2 [facility] Comment on above: Performed at: CB - L [address] [id number] Director: Baudilio Leyva PhD, Phone: [phone] at: - [facility] [address] [id number] Director: Quinton Wolf MD, Phone: [phone] Glucose [Mass/volume] in Ser um or PlasmaOrdered By: Deisy Villar on 01-07-2024 Glucose [Mass/Vol] 84 mg/dL Normal 70-[address] [facility] Comment on above: ADA recommended refe rence rangeRandom Glucose Reference Range is dependent on time and content of last meal. Glucose of more than 200 mg/dL in a nonstressed, ambulatory subject supports the diagnosis of Diabetes Mellitus. Result Comment: [place] om Glucose Reference Range is dependent on time and content of last meal. Glucose of more than 200 mg/dL in a nonstressed, ambulatory subject supports the diagnosis of Diabetes Mellitus. ADA recommended reference range Performed By: #### D HEAS, LC T4, [id number], SEROTON, TEST F + T, T3R, THYGLOB AB, ESTRADIOL, TPO, SHBG, ESTRONE, INSULIN, PROG #### [facility] , #### T4F, TRISTEN, TSH3, A1C WTH eA, FILIBERTO, GLU, T3F #### [address] Glucose mean value [Mass/vol ume] in Blood Estimated from glycated hemoglobinOrdered By: Deisy Villar on 01-07-2024 Average glucose Estimated from glycated hemoglobin (Bld) [Mass/Vol] 105 mg/dL [facility] Hemoglobin A1c percentageOrd ered By: Deisy Villar on 01-07-2024 HbA1c (Bld) [Mass fraction] 5.3 % Normal 4.3-5.6 [facility] Comment on above: Increased risk for d iabetes: 5.7 - 6.4diabetes: >6.4glycemic control for adults with diabetes: <7.0 Result Comment: Incr eased risk for diabetes: 5.7 - 6.4 diabetes: >6.4 glycemic control for adults with diabetes: <7.0 Performed By: #### D HEAS, LC T4, [id number], SEROTON, TEST F + T, T3R, THYGLOB AB, ESTRADIOL, TPO, SHBG, ESTRONE, INSULIN, PROG #### [facility] , #### T4F, TRISTEN, TSH3, A1C WTH eA, FILIBERTO, GLU, T3F #### [address] Insulinon 01-07-2024 Insulin 4.5 u[iU]/mL Normal 2.6-24.9 [facility] Comment on above: Result Comment: Perf ormed at: - [facility] [address] [id number] Dentist/Owner: Baudilio Leyva PhD, Phone: [phone] Performed By: #### D VENITA, LC T4, [id number], SEROTON, TEST F + T, T3R, THYGLOB AB, ESTRADIOL, TPO, SHBG, ESTRONE, INSULIN, PROG #### [facility] , #### T4F, TRISTEN, TSH3, A1C WTH eA, FILIBERTO, GLU, T3F #### [address] [facility] Thyroxine (T4)on T4 [Mass/Vol] 8.2 ug/dL Normal 4.5-12.0 [facility] Comment on above: Performed By: #### D VENITA, LC T4, [id number], SEROTON, TEST F + T, T3R, THYGLOB AB, ESTRADIOL, TPO, SHBG, ESTRONE, INSULIN, PROG #### [facility] , #### T4F, TRISTEN, TSH3, A1C WTH eA, FILIBERTO, GLU, T3F #### [address] No Panel InformationOrdered By: Deisy Villar on 01-07-2024 Free Thyroxine (T4) Direct 8.2 ug/dL 4.5-12.0 [facility] Reverse Triiodothyronine (T3) 18.9 ng/dL 9.2-24.1 [facility] Comment on above: This test was develo ped and its performance characteristicsdetermined by [facility]. It has not been cleared orapproved by the Food and Drug Administration.Performed at: [address] [id number] Director: Quinton Wolf MD, Phone: [phone] Sex Hormone Binding Globulin 95.4 nmol/L 24.6-122.0 [facility] Comment on above: Performed at: [address] [id number] Director: Baudilio Leyva PhD, Phone: [phone] Plasma serotonin measurement (mass/volume)Ordered By: Diesy Villar on 01-07-2024 Serotonin (P) [Mass/Vol] 71 ng/mL 31-207 [facility] Comment on above: This test was develo ped and its performance characteristicsdetermined by [facility]. It has not been cleared orapproved by the Food and Drug Administration.Performed at: [address] [id number] Director: Quinton Wolf MD, Phone: [phone] Progesteroneon 01-07-2024 Progesterone 0.2 ng/mL Normal . [facility] Comment on above: Result Comment: Foll icular phase 0.1 - 0.9 Luteal phase 1.8 - 23.9 Ovulation phase 0.1 - 12.0 First trimester 11.0 - 44.3 Second trimester 25.4 - 83.3 Third trimester 58.7 - 214.0 Postmenopausal 0.0 - 0.1 Performed By: #### D HEAS, LC T4, [id number], SEROTON, TEST F + T, T3R, THYGLOB AB, ESTRADIOL, TPO, SHBG, ESTRONE, INSULIN, PROG #### [facility] , #### T4F, TRISTEN, TSH3, A1C WTH eA, FILIBERTO, GLU, T3F #### [address] Random cortisol measurementO rdered By: Deisy Villar on 01-07-2024 Cortisol [Mass/Vol] 6.8 ug/dL [facility] Comment on above: [facility] Laboratory manager mac and method:HELGA UNICEL DXI, POLYCLONAL ANTIBODY CORTISOL ASSAY.Reference range: AM 6 - 24 ug/dl PM <10 ug/dl Serotonin, Serumon 4 Serotonin, Serum 71 ng/mL Normal 31-207 [facility] Comment on above: Result Comment: This test was developed and its performance characteristics determined by [employer]. It has not been cleared or approved by the Food and Drug Administration. Performed at: [facility] [employer] [id number] Dentist/Owner: Quinton Wolf MD, Phone: [phone] PERFORMED BY: [place] [address] PATHOLOGIST PROCESS MAINTENANCE TECHNICIAN JOSE GOEL M.D. Performed By: #### D HEAS, LC T4, [id number], SEROTON, TEST F + T, T3R, THYGLOB AB, ESTRADIOL, TPO, SHBG, ESTRONE, INSULIN, PROG #### [facility] , #### T4F, TRISTEN, TSH3, A1C WTH eA, FILIBERTO, GLU, T3F #### [facility] [address] [place] [address] Serum estrone measurementOrd ered By: Deisy Villar on 01-07-2024 E1 [Mass/Vol] 46 pg/mL 27-231 [facility] Comment on above: Range Adult (Premeno pausal) 27 - 231 Menstrual Cycle (1-10 days) 19 - 149 Menstrual Cycle (11-20 days) 32 - 176 Menstrual Cycle (21-30 days) 37 - 200Performed at: [facility] [address] [place], [place] [id number] Director: Quinton Wolf MD, Phone: [phone] Serum or plasma calcitriol m easurement (mass/volume)Ordered By: Deisy Villar on 01-07-2024 1,25-dihydroxyvitamin D3 [Mass/Vol] 56.6 pg/mL 24.8-81.5 [facility] Comment on above: Performed at: - L [employer] [address] [place], [place] [id number] Director: Quinton Wolf MD, Phone: [phone] Serum or plasma estradiol (E 2) measurement (mass/volume)Ordered By: Deisy Villar on 01-07-2024 E2 [Mass/Vol] 300.0 pg/mL . [facility] Comment on above: Adult Female Range F ollicular phase 12.5 - 166.0 Ovulation phase 85.8 - 498.0 Luteal phase 43.8 - 211.0 Postmenopausal <6.0 - 54.7 1st trimester 215.0 - >4300.0Roche ECLIA methodology Serum or plasma insulin kevin urement (units/volume)Ordered By: Deisy Villar on 01-07-2024 Insulin Qn 4.5 u[iU]/mL 2.6-24.9 [facility] Comment on above: Performed at: [facility] [address] [id number] Director: Baudilio Leyva PhD, Phone: [phone] Serum or plasma progesterone measurement (mass/volume)Ordered By: Deisy Villar on 01-07-2024 Progesterone [Mass/Vol] 0.2 ng/mL . [facility] Comment on above: Follicular phase 0.1 - 0.9 Luteal phase 1.8 - 23.9 Ovulation phase 0.1 - 12.0 First trimester 11.0 - 44.3 Second trimester 25.4 - 83.3 Third trimester 58.7 - 214.0 Postmenopausal 0.0 - 0.1 Serum or plasma thyroglobuli n antibody assay (units/volume)Ordered By: Deisy Villar on 01-07-2024 Thyroglobulin Ab Qn [IU]/mL 0.0-0.9 [facility] Comment on above: Thyroglobulin Antibo dy measured by AerospikeMethodologyPerformed at: [facility] [address] [id number] Director: Baudilio Leyva PhD, Phone: [phone] Serum or plasma thyroperoxid ase antibody assay (units/volume)Ordered By: Deisy Villar on 01-07-2024 TPO Ab Qn [IU]/mL 0-34 [facility] Comment on above: Performed at: - [facility] [address] [place] [id number] Director: Baudilio Leyva PhD, Phone: [phone] Sex Hormone Binding Globulin on 01-07-2024 Sex Hormone Binding Globulin 95.4 Normal 24.6-122.0 [facility] Comment on above: Result Comment: Perf ormed at: [address] [id number] Dentist/Owner: Baudilio Leyva PhD, Phone: [phone] Performed By: #### D HEAS, LC T4, [id number], SEROTON, TEST F + T, T3R, THYGLOB AB, ESTRADIOL, TPO, SHBG, ESTRONE, INSULIN, PROG #### [facility] , #### T4F, TRISTEN, TSH3, A1C WTH eA, FILIBERTO, GLU, T3F #### [facility] [address] Testosterone Free and TotalO rdered By: Deisy Villar on 01-07-2024 Testosterone [Mass/Vol] 16 ng/dL Normal 8-60 [facility] Comment on above: Performed By: #### D HEAS, LC T4, [id number], SEROTON, TEST F + T, T3R, THYGLOB AB, ESTRADIOL, TPO, SHBG, ESTRONE, INSULIN, PROG #### [facility] , #### T4F, TRISTEN, TSH3, A1C WTH eA, FILIBERTO, GLU, T3F #### [facility] [address] [place] [address] [place] Testosterone Free and Totalo n 01-07-2024 Testosterone,Free 0.3 pg/mL Normal 0.0-4.2 [facility] Comment on above: Result Comment: Perf ormed at: [facility] [address] [place], [place] [id number] Dentist/Owner: Baudilio Leyva PhD, Phone: [phone] Performed at: [address] [id number] Dentist/Owner: Quinton Wolf MD, Phone: [phone] Performed By: #### D HESUE, LC T4, [id number], SEROTON, TEST F + T, T3R, THYGLOB AB, ESTRADIOL, TPO, SHBG, ESTRONE, INSULIN, PROG #### [facility] , #### T4F, TRISTEN, TSH3, A1C WTH eA, FILIBERTO, GLU, T3F #### [address] Thyroid Peroxidase Antibodie son 01-07-2024 Thyroid Peroxidase Antibodies <9 Normal 0-34 [facility] Comment on above: Result Comment: Perf ormed at: - [facility] [place] [id number] Dentist/Owner: Baudilio Leyva PhD, Phone: [phone] Performed By: #### D VENITA, LC T4, [id number], SEROTON, TEST F + T, T3R, THYGLOB AB, ESTRADIOL, TPO, SHBG, ESTRONE, INSULIN, PROG #### [facility] , #### T4F, TRISTEN, TSH3, A1C WTH eA, FILIBERTO, GLU, T3F #### [address] Thyrotropin [Units/volume] i n Serum or PlasmaOrdered By: Deisy Villar on 01-07-2024 TSH Qn 1.80 m[IU]/L Normal 0.45-5.33 [facility] Comment on above: Performed By: #### D HEAS, LC T4, [id number], SEROTON, TEST F + T, T3R, THYGLOB AB, ESTRADIOL, TPO, SHBG, ESTRONE, INSULIN, PROG #### [facility] , #### T4F, TRISTEN, TSH3, A1C WTH eA, FILIBERTO, GLU, T3F #### [address] Thyroxine (T4) free [Mass/vo lume] in Serum or PlasmaOrdered By: Deisy Villar on 01-07-2024 Free T4 [Mass/Vol] 0.88 ng/dL Normal 0.61-1.[address] [facility] Comment on above: Performed By: #### D VENITA, LC T4, [id number], SEROTON, TEST F + T, T3R, THYGLOB AB, ESTRADIOL, TPO, SHBG, ESTRONE, INSULIN, PROG #### [facility] , #### T4F, TRISTEN, TSH3, A1C WTH eA, FILIBERTO, GLU, T3F #### [facility] [address] Triiodothyronine (T3) Freeon 01-07-2024 Triiodothyronine (T3) Free 3.90 pg/mL Normal 2.50-3.90 [facility] Comment on above: Result Comment: PERF ORMED BY: [place] [address] PATHOLOGIST PROCESS MAINTENANCE TECHNICIAN JOSE GOEL M.D. Performed By: #### D VENITA, LC T4, [id number], SEROTON, TEST F + T, T3R, THYGLOB AB, ESTRADIOL, TPO, SHBG, ESTRONE, INSULIN, PROG #### [facility] , #### T4F, TRISTEN, TSH3, A1C WTH eA, FILIBERTO, GLU, T3F #### [address] Triiodothyronine (T3) Free [ Mass/volume] in Serum or PlasmaOrdered By: Deisy Villar on 01-07-2024 Free T3 [Mass/Vol] 3.90 pg/mL 2.50-3.[address] [facility] Triiodothyronine (T3) Revers lonnie 01-07-2024 Triiodothyronine (T3) Reverse 18.9 ng/dL Normal 9.2-24.1 [facility] Comment on above: Result Comment: This test was developed and its performance characteristics determined by [employer]. It has not been cleared or approved by the Food and Drug Administration. Performed at: [address] [id number] Dentist/Owner: Quinton Wolf MD, Phone: [phone] Performed By: #### D HEAS, JOSSE T4, [id number], SEROTON, TEST F + T, T3R, THYGLOB AB, ESTRADIOL, TPO, SHBG, ESTRONE, INSULIN, PROG #### [facility] , #### T4F, TRISTEN, TSH3, A1C WTH eA, FILIBERTO, GLU, T3F #### [facility] [address] Alanine aminotransferase [En zymatic activity/volume] in Serum or PlasmaOrdered By: Delano Francis on 09-17-2023 ALT [Catalytic activity/Vol] 20 U/L 7-52 [facility] Albumin [Mass/volume] in Ser um or Plasma by Bromocresol green (BCG) dye binding methoOrdered By: Delano Francis on 09-17-2023 Albumin BCG dye [Mass/Vol] 4.3 g/dL 3.5-5.7 [facility] Alkaline phosphatase [Enzyma tic activity/volume] in Serum or PlasmaOrdered By: Delano Francis on 09-17-2023 ALP [Catalytic activity/Vol] 62 U/L 34-104 [facility] Aspartate aminotransferase [ Enzymatic activity/volume] in Serum or PlasmaOrdered By: Delano Francis on 09-17-2023 AST [Catalytic activity/Vol] 22 U/L 13-39 [facility] Basophils Auto (Bld) [#/Vol] Ordered By: Delano Francis on 09-17-2023 Basophils (Bld) [#/Vol] 0.0 10*3/uL 0.0-0.2 [facility] Basophils/100 WBC Auto (Bld) Ordered By: Delano Francis on 09-17-2023 Basophils/100 WBC (Bld) 0.4 % . [facility] Bilirubin.total [Mass/volume ] in Serum or PlasmaOrdered By: Delano Francis on 09-17-2023 Bilirubin [Mass/Vol] 0.7 mg/dL 0.3-1.0 [facility] Calcium [Mass/volume] in Ser um or PlasmaOrdered By: Delano Francis on 09-17-2023 Calcium [Mass/Vol] 9.4 mg/dL 8.6-10.[address] [facility] Carbon dioxide, total [Moles /volume] in Serum or PlasmaOrdered By: Delano Francis on 09-17-2023 CO2 [Moles/Vol] 26.2 mmol/L 21.0-31.0 [facility] Chloride [Moles/volume] in S stevo or PlasmaOrdered By: Delano Francis on 09-17-2023 Chloride [Moles/Vol] 102 mmol/L 98-107 [facility] Cholesterol [Mass/volume] in Serum or PlasmaOrdered By: Delano Francis on 09-17-2023 Cholesterol [Mass/Vol] 214 mg/dL 140-200 [facility] Comment on above: Chol less than 200 m g/dl low riskChol 201-239 mg/dl borderline riskChol 240 mg/dl and greater high risk Cholesterol in LDL Calc [Mas s/Vol]Ordered By: Delano Francis on 09-17-2023 Cholesterol in LDL [Mass/Vol] 161 mg/dL 0-100 [facility] Comment on above: LDL ATP III CLASSIFI CATIONLDL less than 100 mg/dL OptimalLDL 100-129 mg/dL Near or above optimalLDL 130-159 mg/dL Borderline highLDL 160-189 mg/dL HighLDL greater than 189 mg/dL Very high Cholesterol in VLDL Calc [Ma ss/Vol]Ordered By: Delano Francis on 09-17-2023 Cholesterol in VLDL [Mass/Vol] 9 mg/dL [facility] Creatinine [Mass/volume] in Serum or PlasmaOrdered By: Delano Francis on 09-17-2023 Creatinine [Mass/Vol] 0.79 mg/dL 0.60-1.20 [facility] Eosinophils Auto (Bld) [#/Vo l]Ordered By: Delano Francis on 09-17-2023 Eosinophils (Bld) [#/Vol] 0.1 10*3/uL 0.0-0.45 [facility] Eosinophils/100 WBC Auto (Bl d)Ordered By: Delano Francis on 09-17-2023 Eosinophils/100 WBC (Bld) 0.9 % . [facility] Erythrocyte distribution wid th Auto (RBC) [Ratio]Ordered By: Delano Francis on 09-17-2023 Erythrocyte distribution width (RBC) [Ratio] 12.4 % 11.9-15.3 [facility] Globulin Calc (S) [Mass/Vol] Ordered By: Delano Francis on 09-17-2023 Globulin (S) [Mass/Vol] 2.5 g/dL [facility] Glucose [Mass/volume] in Ser um or PlasmaOrdered By: Delano Francis on 09-17-2023 Glucose [Mass/Vol] 75 mg/dL 70-[address] [facility] Hematocrit Auto (Bld) [Volum e fraction]Ordered By: Delano Francis on 09-17-2023 Hematocrit (Bld) [Volume fraction] 34.2 % 34.0-46.4 [facility] Hemoglobin [Mass/volume] in BloodOrdered By: Delano Francis on 09-17-2023 Hemoglobin (Bld) [Mass/Vol] 11.8 g/dL 11.8-15.4 [facility] Leukocytes [#/volume] correc calvin for nucleated erythrocytes in Blood by Automated counOrdered By: Delano Francis on 09-17-2023 WBC corrected for nucl RBC Auto (Bld) [#/Vol] 5.9 10*3/uL 3.8-11.6 [facility] Lymphocytes Auto (Bld) [#/Vo l]Ordered By: Delano Francis on 09-17-2023 Lymphocytes (Bld) [#/Vol] 1.8 10*3/uL 1.00-4.8 [facility] Lymphocytes/100 WBC Auto (Bl d)Ordered By: Delano Francis on 09-17-2023 Lymphocytes/100 WBC (Bld) 30.5 % . [facility] MCH Auto (RBC) [Entitic mass ]Ordered By: Delano Francis on 09-17-2023 MCH (RBC) [Entitic mass] 31.8 pg 24.7-34.3 [facility] MCHC Auto (RBC) [Mass/Vol]Or dered By: Delano Francis on 09-17-2023 MCHC (RBC) [Mass/Vol] 34.4 g/dL 32.0-35.0 [facility] MCV Auto (RBC) [Entitic vol] Ordered By: Delano Francis on 09-17-2023 MCV (RBC) [Entitic vol] 92.5 fL 80-100 F [facility] Monocytes Auto (Bld) [#/Vol] Ordered By: Delano Francis on 09-17-2023 Monocytes (Bld) [#/Vol] 0.5 10*3/uL 0.0-0.8 [facility] Monocytes/100 WBC Auto (Bld) Ordered By: Delano Francis on 09-17-2023 Monocytes/100 WBC (Bld) 9.2 % . [facility] Neutrophils Auto (Bld) [#/Vo l]Ordered By: Delano Francis on 09-17-2023 Neutrophils (Bld) [#/Vol] 3.5 10*3/uL 1.8-7.7 [facility] Neutrophils/100 WBC Auto (Bl d)Ordered By: Delano Francis on 09-17-2023 Neutrophils/100 WBC (Bld) 59.0 % . [facility] No Panel InformationOrdered By: Delano Francis on 09-17-2023 Estimated GFR (CKD-EPI) > 60.0 mL/Min [facility] Creatinine Clearance (Chem N/A [facility] Nucleated erythrocytes [Pres ence] in Blood by Automated countOrdered By: Delano Francis on 09-17-2023 Nucleated RBC Auto Ql (Bld) 0.2 /100{WBC} 0-0.5 [facility] Platelet mean volume Auto (B ld) [Entitic vol]Ordered By: Delano Francis on 09-17-2023 Platelet mean volume (Bld) [Entitic vol] 8.1 fL 6.3-10.7 [facility] Platelets Auto (Bld) [#/Vol] Ordered By: Delano Francis on 09-17-2023 Platelets (Bld) [#/Vol] 250 10*3/uL 150-450 [facility] Potassium [Moles/volume] in Serum or PlasmaOrdered By: Delano Francis on 09-17-2023 Potassium [Moles/Vol] 4.0 mmol/L 3.5-5.1 [facility] Protein [Mass/volume] in Ser um or PlasmaOrdered By: Delano Francis on 09-17-2023 Protein [Mass/Vol] 6.8 g/dL 6.4-8.[address] [facility] RBC Auto (Bld) [#/Vol]Ordere d By: Delano Francis on 09-17-2023 RBC (Bld) [#/Vol] 3.70 10*6/uL 3.60-5.00 [facility] Serum or plasma albumin/glob ulin mass ratioOrdered By: Delano Francis on 09-17-2023 Albumin/Globulin [Mass ratio] 1.7 {ratio} [facility] Serum or plasma anion gap de terminationOrdered By: Delano Francis on 09-17-2023 Anion gap [Moles/Vol] 10.8 mmol/L 6.0-15.0 [facility] Serum or plasma high density lipoprotein (HDL) cholesterol measurementOrdered By: Delano Francis on 09-17-2023 Cholesterol in HDL [Mass/Vol] 43 mg/dL 23-92 [facility] Comment on above: HDL CHOL ATP-III CLA SSIFICATION Cardiovascular RiskHDL > or equal to 60 mg/dL LOWHDL < 40 mg/dL HIGH Serum or plasma total choles terol/high density lipoprotein (HDL) cholesterol mass ratOrdered By: Delano Francis on 09-17-2023 Cholesterol.total/Alivia sterol in HDL [Mass ratio] 5.0 {ratio} <5.0 [facility] Sodium [Moles/volume] in Ser um or PlasmaOrdered By: Delano Francis on 09-17-2023 Sodium [Moles/Vol] 135 mmol/L 136-[address] [facility] Thyrotropin [Units/volume] i n Serum or PlasmaOrdered By: Delano Francis on 09-17-2023 TSH Qn 1.04 m[IU]/L 0.45-5.33 [facility] Triglyceride [Mass/volume] i n Serum or PlasmaOrdered By: Delano Francis on 09-17-2023 Triglyceride [Mass/Vol] 48 mg/dL 0-149 [facility] Comment on above: TRIG ATP III CLASSIF ICATIONTRIG less than 150 mg/dL NormalTRIG 150-199 mg/dL Borderline highTRIG 200-500 mg/dL High TRIG greater than 500 mg/dL Very highStandard traceable to the Center for Disease Conrtrol and Prevention (CDC) test method. Urea nitrogen [Mass/volume] in Serum or PlasmaOrdered By: Delano Francis on 09-17-2023 Urea nitrogen [Mass/Vol] 7 mg/dL 7-25 [facility] WBC Auto (Bld) [#/Vol]Ordere d By: Delano Francis on 09-17-2023 WBC (Bld) [#/Vol] 5.9 10*3/uL 3.8-11.[address] [facility] Mononucleosis Test, Qualon 1 Heterophile Ab LA Ql (S) Negative [facility] Other [facility] Strepon 09-26-2022 S. pyogenes Org specific cx Ql (Throat) Negative [facility] Other Quick Strep [facility] Other SARS-CoV-2 (COVID-19) RNA NA A+probe Ql (Resp)on 09-26-2022 SARS-CoV-2 (COVID-19) RNA ROB+probe Ql (Unsp spec) Negative [facility] Other PAP ACOG PANEL 2: 30 to 65on 09-01-2022 . . Normal [facility] Comment on above: Result Comment: Perf ormed at: WB Performed By: #### [id number] #### [facility] [address] [place] [address] Dr. Zonia Zhang Age Gdln ACOG Testing 30-65 Normal [facility] Comment on above: Performed By: #### [id number] #### [facility] [address] [address] [address] Zonia Zhang DIAGNOSIS: Comment [facility] Comment on above: Result Comment: NEGA TIVE FOR INTRAEPITHELIAL LESION OR MALIGNANCY. Performed at: WB Performed By: #### [id number] #### [facility] [address] [address] [address] Zonia Zhang HPV Aptima Negative Normal Negative [facility] Comment on above: Result Comment: This nucleic acid amplification test detects fourteen high-risk HPV types (16,18,31,33,35,39,45,51,52,56,58,59,66,68) without differentiation. Performed at: =G Performed By: #### [id number] #### [facility] [address] [place] [address] Dr. Zonia Zhang Methodology: Comment Normal [facility] Comment on above: Result Comment: This liquid based ThinPrep(R) pap test was screened with the use of an image guided system. Performed at: WB Performed By: #### [id number] #### [facility] [address] [place] [address] Dr. Zonia Zhang Note: Comment Normal [facility] Comment on above: Result Comment: The Pap smear is a screening test designed to aid in the detection of premalignant and malignant conditions of the uterine cervix. It is not a diagnostic procedure and should not be used as the sole means of detecting cervical cancer. Both false-positive and false-negative reports do occur. . Performed at: WB Performed By: #### [id number] #### [facility] [address] [place] [address] Dr. Zonia Zhang Performed by: Comment Normal [facility] Comment on above: Result Comment: Negin Tomas, Economics Analyst (ASCP) Performed at: WB Performed By: #### [id number] #### [facility] [address] [place] [address] Dr. Zonia Zhang Specimen adequacy: Comment Normal [facility] Comment on above: Result Comment: Sati sfactory for evaluation. Endocervical and/or squamous metaplastic cells (endocervical component) are present. Performed at: WB Performed By: #### [id number] #### [facility] [address] [place] [address] Dr. Zonia Zhang Basophils Auto (Bld) [#/Vol] Ordered By: Delano Francis on 08-07-2022 Basophils (Bld) [#/Vol] 0.0 10*3/uL 0.0-0.2 [facility] Basophils/100 WBC Auto (Bld) Ordered By: Delano Francis on 08-07-2022 Basophils/100 WBC (Bld) 0.5 % . F [facility] Blood hemoglobin measurement (mass/volume)Ordered By: Delano Francis on 08-07-2022 Hemoglobin (Bld) [Mass/Vol] 12.7 g/dL 11.8-15.4 [facility] Blood leukocytes automated c ount (number/volume)Ordered By: Delano Francis on 08-07-2022 WBC (Bld) [#/Vol] 5.0 10*3/uL 4.5-11.[address] [facility] Body fluid albumin measureme nt (mass/volume)Ordered By: Delano Francis on 08-07-2022 Albumin (Body fld) [Mass/Vol] 4.1 g/dL 3.2-5.5 [facility] Cholesterol [Mass/volume] in Serum or PlasmaOrdered By: Delano Francis on 08-07-2022 Cholesterol [Mass/Vol] 253 mg/dL 140-200 [facility] Comment on above: Chol less than 200 m g/dl low risk Chol 201-239 mg/dl borderline risk Chol 240 mg/dl and greater high risk Chol less than 200 m g/dl low riskChol 201-239 mg/dl borderline riskChol 240 mg/dl and greater high risk Cholesterol in LDL Calc [Mas s/Vol]Ordered By: Delano Francis on 08-07-2022 Cholesterol in LDL [Mass/Vol] 181 mg/dL 0-100 [facility] Comment on above: LDL ATP III [...] 08-07-2022 Cholesterol in VLDL [Mass/Vol] 12 mg/dL [facility] Creatinine and Glomerular fi ltration rate.predicted panel (S/P/Bld)Ordered By: Delano Francis on 08-07-2022 Creatinine [Mass/Vol] 0.76 mg/dL 0.44-1.03 [facility] Eosinophils Auto (Bld) [#/Vo l]Ordered By: Delano Francis on 08-07-2022 Eosinophils (Bld) [#/Vol] 0.1 10*3/uL 0.0-0.45 [facility] Eosinophils/100 WBC Auto (Bl d)Ordered By: Delano Francis on 08-07-2022 Eosinophils/100 WBC (Bld) 1.6 % . [facility] Erythrocyte distribution wid th Auto (RBC) [Ratio]Ordered By: Delano Francis on 08-07-2022 Erythrocyte distribution width (RBC) [Ratio] 12.6 % 11.9-15.3 [facility] Estimated glomerular filtrat ion rate (GFR) non- AmericanOrdered By: Delano Francis on 08-07-2022 GFR/1.73 sq M.predicted among non-blacks MDRD (S/P/Bld) [Vol rate/Area] > 60 mL/Min [facility] Globulin Calc (S) [Mass/Vol] Ordered By: Delano Francis on 08-07-2022 Globulin (S) [Mass/Vol] 2.3 g/dL [facility] Hematocrit Auto (Bld) [Volum e fraction]Ordered By: Dealno Francis on 08-07-2022 Hematocrit (Bld) [Volume fraction] 37.5 % 34.0-46.4 [facility] - Chemistry and C hemistry - challengeOrdered By: Delano Francis on 08-07-2022 Glucose [Mass/Vol] 88 mg/dL 70-[address] [facility] Laboratory - Hematology and Cell countsOrdered By: Delano Francis on 08-07-2022 Nucleated RBC/100 WBC (Bld) [Ratio] 0.1 % 0-0.5 [facility] Lymphocytes Auto (Bld) [#/Vo l]Ordered By: Delano Francis on 08-07-2022 Lymphocytes (Bld) [#/Vol] 1.4 10*3/uL 1.00-4.8 [facility] Lymphocytes/100 WBC Auto (Bl d)Ordered By: Delano Francis on 08-07-2022 Lymphocytes/100 WBC (Bld) 28.1 % . [facility] MCH Auto (RBC) [Entitic mass ]Ordered By: Delano Francis on 08-07-2022 MCH (RBC) [Entitic mass] 31.8 pg 24.7-34.3 [facility] MCHC Auto (RBC) [Mass/Vol]Or dered By: Delano Francis on 08-07-2022 MCHC (RBC) [Mass/Vol] 33.8 g/dL 32.0-35.0 [facility] MCV Auto (RBC) [Entitic vol] Ordered By: Delano Francis on 08-07-2022 MCV (RBC) [Entitic vol] 94.3 fL 80-100 [facility] Monocyte %Ordered By: Delano Francis on 08-07-2022 Monocyte % 60 mg/dL 35-149 [facility] Comment on above: TRIG ATP III [...] 08-07-2022 Monocytes (Bld) [#/Vol] 0.5 10*3/uL 0.0-0.8 [facility] Monocytes/100 WBC Auto (Bld) Ordered By: Delano Francis on 08-07-2022 Monocytes/100 WBC (Bld) 10.1 % . [facility] Neutrophils Auto (Bld) [#/Vo l]Ordered By: Delano Francis on 08-07-2022 Neutrophils (Bld) [#/Vol] 3.0 10*3/uL 1.8-7.7 [facility] Neutrophils/100 WBC Auto (Bl d)Ordered By: Delano Francis on 08-07-2022 Neutrophils/100 WBC (Bld) 59.7 % . [facility] No Panel InformationOrdered By: Delano Francis on 08-07-2022 Estimated GFR () > 60 mL/Min [facility] Comment on above: GFR estimated refere nce range: According to KDOQI guidelines, <60 ml/min/1.73m2 is sufficient to diagnose a patient with chronic kidney disease. Nicotine Metabolite Negative Cutoff=25 [facility] Comment on above: Performed at: [address] [id number] Director: Quinton Wolf MD, Phone: [phone] Pharmacy Creatinine Clearance (Chem N/A [facility] Platelet mean volume Auto (B ld) [Entitic vol]Ordered By: Delano Francis on 08-07-2022 Platelet mean volume (Bld) [Entitic vol] 7.8 fL 6.3-10.7 [facility] Platelets Auto (Bld) [#/Vol] Ordered By: Delano Francis on 08-07-2022 Platelets (Bld) [#/Vol] 275 10*3/uL 150-450 [facility] Protein [Mass/volume] in Ser um or PlasmaOrdered By: Delano Francis on 08-07-2022 Protein [Mass/Vol] 6.4 g/dL 6.1-7.[address] [facility] RBC Auto (Bld) [#/Vol]Ordere d By: Delano Francis on 08-07-2022 RBC (Bld) [#/Vol] 3.97 10*6/uL 3.60-5.00 [facility] Serum or plasma alanine troy otransferase measurement without P-5'-P (enzymatic activiOrdered By: Delano Francis on 08-07-2022 ALT No additional P-5'-P [Catalytic activity/Vol] 13 U/L 10-60 [facility] Serum or plasma albumin/glob ulin mass ratioOrdered By: Delano Francis on 08-07-2022 Albumin/Globulin [Mass ratio] 1.8 {ratio} [facility] Serum or plasma alkaline nova sphatase measurement (enzymatic activity/volume)Ordered By: Delano Francis on 08-07-2022 ALP [Catalytic activity/Vol] 52 U/L 32-92 [facility] Serum or plasma anion gap de terminationOrdered By: Delano Francis on 08-07-2022 Anion gap [Moles/Vol] 11.7 mmol/L 6.0-15.0 [facility] Serum or plasma aspartate am inotransferase measurement (enzymatic activity/volume)Ordered By: Delano Francis on 08-07-2022 AST [Catalytic activity/Vol] 15 U/L 10-42 [facility] Serum or plasma calcium kevin urement (mass/volume)Ordered By: Delano Francis on 08-07-2022 Calcium [Mass/Vol] 9.8 mg/dL 8.2-10.[address] [facility] Serum or plasma chloride ra surement (moles/volume)Ordered By: Delano Francis on 08-07-2022 Chloride [Moles/Vol] 101 mmol/L 95-114 [facility] Serum or plasma high density lipoprotein (HDL) cholesterol measurementOrdered By: Delano Francis on 08-07-2022 Cholesterol in HDL [Mass/Vol] 60 mg/dL 35-85 [facility] Comment on above: HDL CHOL ATP-III CLA SSIFICATION Cardiovascular Risk HDL > or equal to 60 mg/dL LOW HDL < 40 mg/dL HIGH HDL CHOL ATP-III CLA SSIFICATION Cardiovascular RiskHDL > or equal to 60 mg/dL LOWHDL < 40 mg/dL HIGH Serum or plasma potassium me asurement (moles/volume)Ordered By: Delano Francis on 08-07-2022 Potassium [Moles/Vol] 4.4 mmol/L 3.5-5.1 [facility] Serum or plasma sodium measu rement (moles/volume)Ordered By: Delano Francis on 08-07-2022 Sodium [Moles/Vol] 136 mmol/L 136-[address] [facility] Serum or plasma total biliru bin measurement (mass/volume)Ordered By: Delano Francis on 08-07-2022 Bilirubin [Mass/Vol] 1.0 mg/dL 0.3-1.2 [facility] Serum or plasma total carbon dioxide measurement (moles/volume)Ordered By: Delano Francis on 08-07-2022 CO2 [Moles/Vol] 27.7 mmol/L 22.0-30.0 [facility] Serum or plasma total choles terol/high density lipoprotein (HDL) cholesterol mass ratOrdered By: Delano Francis on 08-07-2022 Cholesterol.total/Alivia sterol in HDL [Mass ratio] 4.2 {ratio} <5.0 [facility] Serum or plasma urea nitroge n measurement (mass/volume)Ordered By: Delano Francis on 08-07-2022 Urea nitrogen [Mass/Vol] 9 mg/dL 08-22 [facility] TSH DL <= 0.005 mIU/L QnOrde red By: Delano Francis on 08-07-2022 TSH Qn 1.43 m[IU]/L 0.45-5.33 [facility] T3, TOTAL (TRIIODOTHYRONINE) on 06-07-2022 T3, TOTAL 88 ng/dL Normal 71-180 [facility] Comment on above: Performed By: #### T 3TOTAL #### [facility] [address] [address] [address] Zonia Zhang FREE T4on 06-06-2022 Free T4 [Mass/Vol] 0.94 ng/dL Normal 0.76-1.46 [facility] Comment on above: Performed By: #### F T4 #### [facility] [address] [address] [address] Zonia Zhang TSHon 06-06-2022 TSH 1.364 uIU/mL Normal 0.358-3.74 0 [facility] Comment on above: Performed By: #### T SH #### [facility] [address] [place] [address] Dr. Zonia Zhang COVID Quick Testingon 2021 Result Positive [facility] Other Quick Fluon 12-27-2021 FLUAV Ab CF (S) [Titer] Negative N [employer] Other FLUBV Ab CF (S) [Titer] Negative N [employer] Other Vital Signs Date Time Vital Sign Value Performing Clinician Facility 06-26-2025 13:08-0400 Body mass index (BMI) [Ratio] 36.2 kg/m2 Ángel Sita DO Work Phone: [facility] 06-26-2025 13:08-0400 Body weight 104.83 kg Ángel Sita DO Work Phone: [facility] 06-26-2025 13:08-0400 Diastolic blood pressure 74 mm[Hg] Ángel Sita DO Work Phone: [facility] 06-26-2025 13:08-0400 Systolic blood pressure 116 mm[Hg] Ángel Sita DO Work Phone: [facility] 06-12-2025 14:21-0400 Body mass index (BMI) [Ratio] 35.73 kg/m2 Ángel Sita DO Work Phone: [facility] 06-12-2025 14:21-0400 Body weight 103.47 kg Ángel Sita DO Work Phone: [facility] 06-12-2025 14:21-0400 Diastolic blood pressure 70 mm[Hg] Ángel Sita DO Work Phone: [facility] 06-12-2025 14:21-0400 Systolic blood pressure 120 mm[Hg] Ángel Sita DO Work Phone: [facility] 05-30-2025 09:10-0400 Body mass index (BMI) [Ratio] 35.52 kg/m2 Ángel Sita DO Work Phone: [facility] 05-30-2025 09:10-0400 Body weight 102.88 kg Ángel Sita DO Work Phone: [facility] 05-30-2025 09:10-0400 Diastolic blood pressure 78 mm[Hg] Ángel Sita DO Work Phone: [facility] 05-30-2025 09:10-0400 Systolic blood pressure 120 mm[Hg] Ángel Sita DO Work Phone: [facility] 05-01-2025 08:36-0400 Body mass index (BMI) [Ratio] 34.43 kg/m2 Deisy Adithya PA Work Phone: [facility] 05-01-2025 08:36-0400 Body weight 99.7 kg Deisy [place] PA Work Phone: [facility] 05-01-2025 08:36-0400 Diastolic blood pressure 74 mm[Hg] Deisy [place] PA Work Phone: [facility] 05-01-2025 [...] mass index (BMI) [Ratio] 31.76 kg/m2 Deisy [place] PA Work Phone: [facility] 03-02-2025 09:58-0400 Body weight 91.99 kg Deisy Adithya PA Work Phone: [facility] 03-02-2025 09:58-0400 Diastolic blood pressure 72 mm[Hg] Deisy Adithya PA Work Phone: [facility] 03-02-2025 09:58-0400 Systolic blood pressure 120 mm[Hg] Deisy Villar PA Work Phone: [facility] 02-02-2025 [...] 170.18 cm Robles Ball DO Work Phone: [facility] 10-18-2024 11:19-0500 Body mass index (BMI) [Ratio] 29.7 kg/m2 Robles Ball DO Work Phone: [facility] 10-18-2024 11:19-0500 Body weight 86.23 kg Robles Ball DO Work Phone: [facility] 10-18-2024 11:19-0500 Diastolic blood pressure 77 mm[Hg] Robles Ball DO Work Phone: [facility] 10-18-2024 11:19-0500 Heart rate 88 /min Robles Ball DO Work Phone: [facility] 10-18-2024 11:19-0500 Respiratory rate 12 /min Robles Ball DO Work Phone: [facility] 10-18-2024 11:19-0500 Systolic blood pressure 111 mm[Hg] Robles Ball DO Work Phone: [facility] 09-13-2024 14:28-0400 Body mass index (BMI) [...] Center 05-03-2024 14:40-0400 Body height 170.18 cm [facility] 05-03-2024 14:40-0400 Body mass index (BMI) [Ratio] 28.3 kg/m2 [facility] 05-03-2024 14:40-0400 Body weight 82.1 kg [facility] 05-03-2024 14:40-0400 Diastolic blood pressure 82 mm[Hg] [facility] 05-03-2024 14:40-0400 Heart rate 78 /min [facility] 05-03-2024 14:40-0400 SaO2% (BldA) [Mass fraction] 98 % [facility] 05-03-2024 14:40-0400 Systolic blood pressure 122 mm[Hg] [facility] 01-06-2024 14:20-0500 Body height 170.2 cm Deisy MUNOZ Work Phone: [facility] 01-06-2024 14:20-0500 Body mass index (BMI) [Ratio] 28.05 kg/m2 Deisy MUNOZ Work Phone: [facility] 01-06-2024 14:20-0500 Body weight 81.25 kg Deisy MUNOZ Work Phone: [facility] 01-06-2024 14:20-0500 Diastolic blood pressure 70 mm[Hg] Deisy MUNOZ Work Phone: [facility] 01-06-2024 14:20-0500 Systolic blood pressure 120 mm[Hg] Deisy MUNOZ Work Phone: [facility] 10-02-2023 10:00-0400 Body height 170.18 cm Robles Ball Other [facility] Other 10-02-2023 10:00-0400 Body mass index (BMI) [Ratio] 29.38 kg/m2 Robles Ball Other [facility] Other 10-02-2023 10:00-0400 Body weight 85.1 kg Robles Ball Other [facility] Other 10-02-2023 10:00-0400 Diastolic blood pressure 83 mm[Hg] Robles Ball Other [facility] Other 10-02-2023 10:00-0400 Respiratory rate 12 /min Robles Ball Other [facility] Other 10-02-2023 10:00-0400 Systolic blood pressure 131 mm[Hg] Robles Ball Other [facility] Other 01-22-2023 10:30-0500 Body height 170.18 cm Robles Ball Other [facility] Other 01-22-2023 10:30-0500 Body mass index (BMI) [Ratio] 29.91 kg/m2 Robles Ball Other [facility] Other 01-22-2023 10:30-0500 Body weight 86.64 kg Robles Ball Other [facility] Other 01-22-2023 10:30-0500 Diastolic blood pressure 72 mm[Hg] Robles Ball Other [facility] Other 01-22-2023 10:30-0500 Respiratory rate 16 /min Robles Ball Other [facility] Other 01-22-2023 10:30-0500 Systolic blood pressure 122 mm[Hg] Robles Ball Other [facility] Other 09-26-2022 16:10-0400 Body height 170.18 cm Kiya Schaffer Other [facility] Other 09-26-2022 16:10-0400 Body mass index (BMI) [Ratio] 29.29 kg/m2 Kiya Schaffer Other [facility] Other 09-26-2022 16:10-0400 Body temperature 98.8 [degF] Kiya Schaffer Other [facility] Other 09-26-2022 16:10-0400 Body weight 84.82 kg Kiya Schaffer Other [facility] Other 09-26-2022 16:10-0400 Diastolic blood pressure 73 mm[Hg] Kiya Schaffer Other [facility] Other 09-26-2022 16:10-0400 Respiratory rate 18 /min Kiya Schaffer Other [facility] Other 09-26-2022 16:10-0400 SaO2% (BldA) [Mass fraction] 97 % Kiya Schaffer Other [facility] Other 09-26-2022 16:10-0400 Systolic blood pressure 125 mm[Hg] Kiya Schaffer Other [facility] Other 12-27-2021 10:15-0500 Body height 170.18 cm Elsi Mayer Other [facility] Other 12-27-2021 10:15-0500 Body mass index (BMI) [Ratio] 28.19 kg/m2 Elsi Mayer Other [facility] Other 12-27-2021 10:15-0500 Body temperature 100.3 [degF] Elsi Mayer Other [facility] Other 12-27-2021 10:15-0500 Body weight 81.65 kg Elsi Mayer Other [facility] Other 12-27-2021 10:15-0500 Respiratory rate 18 /min Elsi Mayer Other [facility] Other 12-27-2021 10:15-0500 SaO2% (BldA) [Mass fraction] 98 % Elsi Mayer Other [facility] Other Encounters Encounter Date Encounter Type Care Provider Facility Start: 06-26-2025 End: 06-26-2025 flow sheet Ángel Sita DO Work Phone: [facility] Comment on above: Third trimester preg lai ([facility]); 33 weeks gestation of ([facility]) Start: 06-26-2025 End: 06-26-2025 ambulatory ÁNGEL SITA Not Available Start: 06-26-2025 End: 06-26-2025 ambulatory DEISY ADITHYA Not Available Start: 06-24-2025 End: 06-24-2025 Clinisync Result Encounter Ángel Sita DO Work Phone: [facility] External Department Unsolicited Start: 06-24-2025 End: 06-24-2025 Clinisync Result Encounter Ángel Sita DO Work [...] flow sheet Ángel Sita DO Work Phone: [facility] Comment on above: Third trimester preg lai ([facility]); 29 weeks gestation of ([facility]); History of miscarriage; Multigravida of advanced maternal age in third trimester ([facility]) Start: 05-30-2025 End: 05-30-2025 ambulatory ÁNGEL SITA Not Available Start: 05-11-2025 End: 05-11-2025 Clinisync Result Encounter Edson Dewitt NP Work Phone: [facility] External Department Unsolicited Start: 05-11-2025 End: 05-11-2025 Clinisync Result Encounter Edson Dewitt NP Work Phone: [facility] External Department Unsolicited Start: 05-01-2025 End: 05-01-2025 Bamboo flowsheet Deisy MUNOZ Work Phone: [facility] Start: 05-01-2025 End: 05-01-2025 Bamboo flowsheet Deisy MUNOZ Work Phone: [facility] Start: 05-01-2025 End: 05-01-2025 flow sheet Deisy MUNOZ Work Phone: [facility] Comment on above: size [...] Patient encounter procedure Deisy MUNOZ Work Phone: [facility] Start: 03-02-2025 End: 03-02-2025 Periodic preventive med est patient 18-39 yrs Deisy Villar PA Work Phone: [facility] Comment on above: 17 weeks gestation o f ; Second trimester ; Well woman exam with routine gynecological exam; Screening, , for anatomic survey; Exposure to STD; Vaginal discharge; Heartburn; Allergy, sequela Start: 03-02-2025 End: 03-02-2025 ambulatory DEISY VILLAR Not Available Start: 02-02-2025 End: 02-02-2025 Bamboo flowsheet Ángel Sita DO Work Phone: [facility] Start: 02-02-2025 End: 02-02-2025 Bamboo flowsheet Ángel Sita DO Work Phone: [facility] Start: 02-02-2025 End: 02-02-2025 flow sheet Ángel Sita DO Work Phone: [facility] Comment on above: 13 weeks gestation o f ; Second trimester Start: 02-02-2025 End: 02-02-2025 ambulatory ÁNGEL SITA Not Available Start: 01-13-2025 End: 01-13-2025 Clinisync Result Encounter Ángel Sita DO Work Phone: [facility] External Department Unsolicited Start: 01-13-2025 End: 01-13-2025 Clinisync Result Encounter Ángel Sita DO Work Phone: [facility] External Department Unsolicited Start: 01-05-2025 End: 01-05-2025 ambulatory ÁNGEL SITA Not Available Start: 12-12-2024 End: 12-12-2024 Clinisync Result Encounter Ángel Sita DO Work Phone: [facility] External Department Unsolicited Start: 12-12-2024 End: 12-12-2024 Clinisync Result Encounter Ángel Sita DO Work Phone: [facility] External Department Unsolicited Start: 12-10-2024 End: 12-10-2024 Clinisync Result Encounter Ángel Sita DO Work Phone: [facility] External Department Unsolicited Start: 12-10-2024 End: 12-10-2024 Clinisync Result Encounter Ángel Sita DO Work Phone: [facility] External Department Unsolicited Start: 10-18-2024 End: 10-18-2024 ambulatory Robles Ball DO Work Phone: [facility] Work Phone: Start: 10-18-2024 End: 10-18-2024 Encounter for general adult medical examination without abnormal findings Robles Nela DO Work Phone: [facility] Start: 10-18-2024 End: 10-18-2024 Patient encounter procedure Robles Ball DO Work Phone: [facility] Work Phone: Start: 10-16-2024 Patient encounter status Jemraine min Ball DO Work Phone: [facility] Start: 10-14-2024 Non-patient / Non-visit Benjam in Ball DO Work Phone: [facility] Work Phone: Start: 09-22-2024 End: 09-22-2024 Departed Referred DO Robles Ball Work Phone: [facility] Start: 09-22-2024 End: 09-22-2024 ambulatory DO Robles Ball Work Phone: [facility] Work Phone: Start: 09-13-2024 End: [...] Not Available Start: 08-29-2024 End: 08-29-2024 ambulatory [facility] Work Phone: Start: 08-29-2024 End: 08-29-2024 Patient encounter procedure [facility] Work Phone: Start: 05-03-2024 End: 05-03-2024 ambulatory [facility] Work Phone: Start: 05-03-2024 End: 05-03-2024 Patient encounter procedure [facility] Work Phone: Start: 2024 End: 2024 ambulatory DO Robles Ball Work Phone: [facility] Work Phone: Start: 2024 End: 2024 Patient encounter procedure DO Robles Ball Work Phone: [facility] Work Phone: Start: 01-07-2024 End: 01-07-2024 Patient encounter procedure DO Robles Ball Work Phone: [facility] [place] Work Phone: Start: 01-07-2024 End: 01-07-2024 ambulatory DO Robles Ball Work Phone: [facility] Work Phone: Start: 01-06-2024 End: 01-06-2024 Office outpatient visit 15 minutes Deisy MUNOZ Work Phone: [facility] Comment on above: Encounter for weight management; Hormone disorder; 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 Start: 10-02-2023 End: 10-02-2023 ambulatory Robles Charles Other [facility] Other Start: 10-02-2023 Encounter for genera l adult medical examination without abnormal findings Robles Charles [facility] Start: 10-02-2023 Periodic preventive med est patient 18-39 yrs Robles Charles [facility] Start: 09-17-2023 End: 09-17-2023 ambulatory MD Liz Conteh Work Phone: [facility] Work Phone: Start: 09-17-2023 End: 09-17-2023 Departed Referred MD Liz Conteh Work Phone: [facility]Employee Benefit Screening Start: 01-22-2023 End: 01-22-2023 ambulatory Robles Charles Other [facility] Other Start: 01-22-2023 Office outpatient vi sit 15 minutes Robles Cahrles [facility] Start: 01-12-2023 End: 01-12-2023 ambulatory Robles Charles Other [facility] Other Start: 01-12-2023 Telephone encounter Robles Charles [facility] Start: 12-24-2022 End: 12-24-2022 ambulatory Robles Charles Other [facility] Other Start: 12-24-2022 Office outpatient vi sit 15 minutes Robles Charles [facility] Start: 09-30-2022 End: 09-30-2022 ambulatory Kiya Schaffer Other [facility] Other Start: 09-30-2022 Telephone encounter Kiya Schaffer [facility] Start: 09-26-2022 End: 09-26-2022 Departed Referred MD Liz Conteh Work Phone: [facility] [place] Start: 09-26-2022 End: 09-26-2022 ambulatory MD Liz Conteh Work Phone: [facility] Work Phone: Start: 09-26-2022 Office outpatient vi sit 15 minutes Kiya Schaffer [facility] Start: 09-25-2022 ([facility] C Vac) [facility] Co vid Vaccine [facility] Start: 09-25-2022 End: 09-25-2022 ambulatory MD Liz Conteh Work Phone: [facility] Work Phone: Start: 09-25-2022 End: 09-25-2022 Patient encounter procedure MD Liz Conteh Work Phone: [facility] Vaccine Off Site Start: 08-25-2022 End: 08-25-[address] ÁNGEL BUCKNER Facility:[facility] Start: 08-07-2022 End: 08-07-2022 Departed Referred MD Liz Conteh Work Phone: [facility]-Employee Benefit Screening Start: 06-06-2022 End: 06-07-[address] ROBLES CHARLES Facility:[facility] Start: 01-01-2022 End: 01-01-2022 ambulatory Elsi Mayer Other [facility] Other Start: 01-01-2022 Office outpatient vi sit 5 minutes Elsiveronique Mayer [facility] Start: 12-27-2021 End: 12-27-2021 ambulatory Elsi Mayer Other [facility] Other Start: 12-27-2021 Office outpatient vi sit 15 minutes Elsiveronique Mayer [facility] Start: 08-23-2021 ([facility] Vac) [facility] vid [facility] Procedures Date Procedure Procedure Detail Performing Clinician Start: 06-26-2025 Urnls dip stick/tabl et rgnt non-auto w/o micrscp Ángel Sita DO Work Phone: Start: 06-24-2025 US OB BPP W NON-STRESS Ángel Sita DO Work Phone: Start: 06-17-2025 US OB BPP W NON-STRESS Ángel Sita DO Work Phone: Start: 06-10-2025 US OB BPP W NON-STRESS Ángel Sita DO Work Phone: Start: 06-03-2025 US OB BPP W NON-STRESS Ángel Sita DO Work Phone: Start: 05-30-2025 Urnls dip stick/tabl et rgnt non-auto w/o micrscp Ángel Sita DO Work Phone: Start: 05-11-2025 US OB GROWTH Edson E tank [employer] Work Phone: Start: 04-18-2025 ALL CBC WITH AUTO DIFF Ángel Sita DO Work Phone: Start: 04-18-2025 GLUCOSE 1 HOUR Ángel Fa zio DO Work Phone: Start: 03-30-2025 Urnls dip stick/tabl et rgnt non-auto w/o micrscp Ángel Sita DO Work Phone: Start: 03-21-2025 US OB ANATOMY Deisy MUNOZ Work Phone: Start: 03-21-2025 US OB CERVICAL LENGTH A rodriugez MUNOZ Work Phone: Start: 03-02-2025 RECURRENT VAGINITIS [...] 09-13-2029 Screening for malignant neoplasm of cervix [facility] Start: 03-02-2028 Screening for malignant neoplasm of cervix Pap Smear [facility] Start: 09-19-2025 End: 09-19-2025 Patient encounter procedure [facility] Start: 07-31-2025 Influenza vaccination [facility] Start: 07-24-2025 End: 07-24-2025 Patient encounter procedure 07/24/2025 11:20 AM EDT Routine HERBIE Kaur OBROSELINEN [address] [place] [address] Ángel Buckner DO [address] [place] [address] [facility] Start: 07-17-2025 End: 07-17-2025 Patient encounter procedure 07/17/2025 2:50 PM EDT Routine [facility] [address] [place] [id number] Ángel Buckner DO [address] [place] [address] [facility] Start: 07-10-2025 End: 07-10-2025 Patient encounter procedure [facility] Start: 06-26-2025 End: 06-26-2025 Patient encounter procedure [facility] Start: 06-26-2025 End: 06-26-2025 Professional / ancillary services management [facility] Start: 06-19-2025 Screening for malignant neoplasm of cervix [facility] Start: 06-12-2025 End: 06-12-2025 Patient encounter procedure [facility] Comment on above: Arrived Start: 06-12-2025 End: 10-13-2025 US for US OB follow up transabdominal approach Imaging Routine Excessive growth affecting management of in third trimester, single or unspecified fetus ([facility]) Expected: 06/12/2025, Expires: 10/13/2025 [facility] Work Phone: Comment on above: Expected: 06/12/2025, Expires: Start: 05-30-2025 End: 11-30-2025 US biophysical profile w non stress test US biophysical profile w non stress test Imaging Routine History of miscarriage Multigravida of advanced maternal age in third trimester ([facility]) Expected: 05/30/2025 (Approximate), Expires: 11/30/2025 [facility] [...] EDT Ancillary Procedure [facility] [address] [place] [address] [facility] Start: 04-03-2025 End: 04-03-2025 Patient encounter procedure 04/03/2025 9:50 AM EDT Routine [facility] [address] [place] [address] Ángel Buckner, DO [address], [place] [id number] [facility] Start: 04-03-2025 End: 04-03-2025 Professional / ancillary services management 04/03/2025 8:00 AM EDT Ancillary Procedure [facility] [address] [place] [address] [facility] Start: 03-30-2025 End: 03-30-2026 CBC panel - Blood by Automated count CBC Lab Routine Second trimester Diabetes mellitus screening Expected: 03/30/2025 (Approximate), Expires: 03/30/2026 [facility] Work Phone: Comment on above: Expected: 03/30/2025 (Approximate), Expi res: 03/30/2026 Start: 03-30-2025 End: 03-30-2026 Measurement of glucose 1 hour after glucose challenge for glucose tolerance test Glucose tolerance, 1 hour Lab Routine Second trimester Diabetes mellitus screening Expected: 03/30/2025 (Approximate), Expires: 03/30/2026 [facility] Comment on above: Expected: 03/30/2025 [...] Routine [facility] [address] [place] [address] Deisy Villar PA [address] [place] [address] Arrived [facility] Comment on above: Arrived Start: 02-02-2025 End: 02-02-2025 Patient encounter procedure [facility] Comment on above: Arrived Start: 01-05-2025 End: 01-05-2025 ambulatory 01/05/2025 1:30 PM EST Initial [facility] [address] [place] [address] [facility] Start: 01-05-2025 End: 01-05-2025 Professional / ancillary services management 01/05/2025 1:00 PM EST Ancillary Procedure [facility] [address] [place] [phone] [facility] Start: 09-13-2024 End: 09-13-2024 Patient encounter procedure [facility] Comment on above: Arrived Start: 07-31-2024 Influenza vaccination Influenza Vaccine (#1) [facility] Start: 02-03-2024 End: 02-03-2024 Patient encounter procedure 02/03/2024 1:50 PM EST Office Visit [facility] [address] [place] [address] Deisy Villar PA [address] [place] [address] [facility] Start: 01-07-2024 Dehydroepiandrosterone sulfate level [facility] Start: 01-07-2024 Sex hormone binding globulin measurement [facility] Start: 01-07-2024 T3 reverse measurement [facility] Start: 01-07-2024 Thyroxine measurement [facility] Start: 01-07-2024 [facility] Start: 01-06-2024 End: 01-06-2025 Anti-thyroglobulin antibody Anti-thyroglobulin antibody Lab Routine Hormone disorder Expected: 01/06/2024 (Approximate), Expires: 01/06/2025 [facility] Comment on above: Expected: 01/06/2024 (Approximate), Expi res: 01/06/2025 Start: 01-06-2024 End: 01-06-2025 C-peptide C-peptide Lab Routine Hormone disorder Expected: 01/06/2024 (Approximate), Expires: 01/06/2025 [facility] Comment on above: Expected: 01/06/2024 (Approximate), Expi res: 01/06/2025 Start: 01-06-2024 End: 01-06-2025 Cortisol free Cortisol, free Lab Routine Hormone disorder Expected: 01/06/2024 (Approximate), Expires: 01/06/2025 [facility] Comment on above: Expected: 01/06/2024 [...] 01-06-2025 Thyrotropin [Units/volume] in Serum or Plasma [facility] Comment on above: Ordered: 01/06/2024 Expected: 01/06/2024 (Approximate), Expires: 01/06/2025 Start: 09-17-2023 [facility] Start: 08-07-2022 [facility] Work Phone: Calcitriol [Mass/vol ume] in Serum or Plasma [facility] CHLAMYDIA TRACHOMATI S (GENITO/STI) CHLAMYDIA TRACHOMATIS (GENITO/STI) Lab Routine Exposure to STD Ordered: 03/02/2025 [facility] Comment on above: Ordered: 03/02/2025 Cytology Cervical or vaginal smear or scraping study Pap Smear Pathology and Cytology Routine Well woman exam with routine gynecological exam Ordered: 09/13/2024 [facility] Work Phone: Comment on above: Ordered: 09/13/2024 Cytology Cervical or vaginal smear or scraping study Pap Smear Pathology and Cytology Routine Well woman exam with routine gynecological exam Ordered: 03/02/2025 [facility] Comment on above: Ordered: 03/02/2025 DHEA-sulfate DHEA-sulfate Lab Routine Hormone disorder Ordered: 01/06/2024 [facility] Comment on above: Ordered: 01/06/2024 Estradiol Estradiol Lab Ro utine Hormone disorder Ordered: 01/06/2024 [facility] Work Phone: Comment on above: Ordered: 01/06/2024 Estradiol (E2) [Mass /volume] in Serum or Plasma [facility] Estrone Estrone Lab Rout ine Hormone disorder Ordered: 01/06/2024 [facility] Comment on above: Ordered: 01/06/2024 Estrone (E1) [Mass/v olume] in Serum or Plasma [facility] Ferritin [Mass/volum e] in Serum or [...] Insulin [Units/volum e] in Serum or Plasma [facility] Neisseria gonorrhoea e DNA [Presence] in Unspecified specimen by ROB with probe detection Neisseria gonorrhea DNA probe, direct Lab Routine Exposure to STD Ordered: 03/02/2025 [facility] Comment on above: Ordered: 03/02/2025 Progesterone Progesterone Lab Routine Hormone disorder Ordered: 01/06/2024 [facility] Comment on above: Ordered: 01/06/2024 Progesterone [Mass/v olume] in Serum or Plasma [facility] Serotonin [Mass/volu me] in Plasma [facility] Sex hormone binding globulin Sex hormone [...] Testosterone Free [Mass/volume] in Serum or Plasma [facility] TESTOSTERONE, FREE TESTOSTERONE, FREE Lab Routine Hormone disorder Ordered: 01/06/2024 [facility] Comment on above: Ordered: 01/06/2024 Testosterone, free, total Testos terone, free, total Lab Routine Hormone disorder Ordered: 01/06/2024 [facility] Comment on above: Ordered: 01/06/2024 Throat culture Throat Culture [facility] Thyroglobulin Ab [Units/volume] in Serum or Plasma [facility] Thyroid peroxidase antibody Thyr oid peroxidase antibody Lab Routine Hormone disorder Ordered: 01/06/2024 [facility] Comment on above: Ordered: 01/06/2024 Thyroperoxidase Ab [Units/volume] in Serum or Plasma [facility] Thyroxine (T4) free [Mass/volume] in Serum [...] Medical Center Comment on above: Ordered: 01/06/2024 [facility] Work Phone: Immunizations Immunization Date Immunization Notes Care Provider [facility]david 09-15-2023 influenza, injectabl e, quadrivalent, preservative free [facility] 09-15-2023 influenza virus vaccine, unspecified formulation Ángel Buckner DO Work Phone: [facility] 09-25-2022 COVID-19 Moderna (BIvalent) Kiya Schaffer Other [facility] 08-23-2021 COVID-19 Pfizer Subha Fitt Other [facility] 07-31-2021 COVID-19 Pfizer Subha Fitt Other [facility] 05-19-2021 diphtheria, tetanus toxoids and pertussis vaccine [facility] Payers Date Payer Category Payer Self-pay [id number] 2022 Private Health Insurance [employer] [id number] 2022 Unknown [employer] [id number] 2022-Present [address] [place] [address] [id number] 1990 Unknown [id number] [id number] .593 1990 Unknown [id number] .[id number] .593 1990 Unknown [id number] 2.16.840.1.274474.3.579.2 .1258 1990 Unknown [id number] 2.16.840.1.363934.3.579.2 .1258 1990 Unknown [id number] 2.16.840.1.697451.3.579.2 .1258 1990 Unknown [id number] 2.16840.1.800796.3.579.2 .1258 1990 Unknown [id number] 2..840.1.816630.3.579.2 .1258 1990 Unknown [id number] 2.840.1.589341.3.579.2 .1258 1990 Unknown [id number] 2.840.1.380518.3.579.2 .1258 1990 Unknown [id number] 2.840.1.882175.3.579.2 .1258 1990 Unknown [id number] 2.840.1.030831.3.579.2 .1258 1990 Unknown [id number] 2.16840.1.037781.3.579.2 .1258 1990 Unknown [id number] 2.840.1.424230.3.579.2 .1258 1990 Unknown [id number] 2.840.1.055157.3.579.2 .1259 1959 Unknown [id number] [id number] Unknown [id number] 2.840.1.377994.3.579.2 .531 Unknown [id number] 2.840.1.471152.3.579.2 .531 Worker's Compensation [facility] Ind [id number] Social History Date Type Detail Facility Start: 10-13-2023 End: 09-13-2024 Sex Assigned At [facility] Start: 1990 Sex Assigned At Female F [facility] Start: 08-13-2023 End: 05-03-2024 Tobacco smoking [...] [facility] Start: 10-18-2024 Sex Female (finding) [facility] Start: 11-16-2024 [facility] Clinical Notes 08-23-2021 to 06-26-2025 Mary Lou Kearney, [facility] - 06/26/2025 1:10 PM ALEXANDER Abbott - 06/12/2025 2:10 PM Barbara Charlton, [employer] - 05/30/2025 8:50 AM EDTEdson Dewitt NP - 05/01/2025 8:30 AM EDT Note Date & Type Note Facility 06-26-2025 History of Presen t illness Narrative Reason [...] nursing note reviewed. Exam conducted with a spectral scientist present. Vitals: Estimated body mass index is 36.2 kg/m as calculated from the following: Height as of 01/06/24: 5' 7 . Weight as of this encounter: 231 lb 1.9 oz. BP: 116/74 Patient's last menstrual period was 11/02/2024. ASSESSMENT & PLAN (Z34.93) Third trimester ([facility]) Plan: POCT urinalysis dipstick manually resulted (Z3A.33) 33 weeks gestation of ([facility]) Plan: POCT urinalysis dipstick manually resulted Patient presents today for a routine obstetrics appointment. Patient is currently 33w5d with a Estimated Date of Delivery: 08/09/25. Patient to return to clinic in 2 weeks for GBS. Documented by Mary Lou Kearney LPN on behalf of: Ángel Buckner DO documented in this encounter [facility] 06-12-2025 History of Presen t illness Narrative [...] in third trimester, single or unspecified fetus ([facility]) O36.63X0 US OB follow up transabdominal approach 2. 31 weeks gestation of ([facility]) Z3A.31 POCT urinalysis dipstick manually resulted 3. Third trimester ([facility]) Z34.93 POCT urinalysis dipstick manually resulted 4. History of miscarriage Z87.59 5. Multigravida of advanced maternal age in third trimester ([facility]) O09.523 Return OB: Patient presents today for [...] documented in this encounter [facility] 05-30-2025 History of Presen t [...] nursing note reviewed. Exam conducted with a spectral scientist present. Vitals: Estimated body mass index is 35.52 kg/m as calculated from the following: Height as of 24: 5' 7 . Weight as of this encounter: 226 lb 12.8 oz. BP: 120/78 Patient's last menstrual period was 11/02/2024. ASSESSMENT & PLAN ICD-10-CM 1. Third trimester ([facility]) Z34.93 POCT urinalysis dipstick manually resulted 2. 29 weeks gestation of ([facility]) Z3A.29 POCT urinalysis dipstick manually resulted 3. History of miscarriage Z87.59 4. Multigravida of advanced maternal age in third trimester ([facility]) O09.523 Return OB: Patient presents today for [...] documented in this encounter [facility] 05-01-2025 History of Presen t [...] nursing note reviewed. Exam conducted with a spectral scientist present. Vitals: Estimated body mass index is 34.43 kg/m as calculated from the following: Height as of 01/06/24: 5' 7 . Weight as of this encounter: 219 lb 12.8 oz. BP: 118/74 Patient's last menstrual period was 11/02/2024. ASSESSMENT & PLAN ICD-10-CM 1. size inconsistent with dates O26.849 OB follow up transabdominal approach 2. Second [...] Diagnosis Date Fatigue GARTH (generalized anxiety disorder) (CMS/[facility]) Hyperlipidemia (CMS/HCC) Paronychia, finger Social History Tobacco [...] nursing note reviewed. Exam conducted with a spectral scientist present. Vitals: Estimated body mass index is [...] nursing note reviewed. Exam conducted with a spectral scientist present. Vitals: Estimated body mass index is [...] obtained without difficulty and [facility]. Orders Placed This [...] calculated from the following: Height as of 2/7/24: 5' 7 . Weight as of this [...] nursing note reviewed. Exam conducted with a spectral scientist present. Vitals: Estimated body mass index is [...] Diagnosis Date Fatigue GARTH (generalized anxiety disorder) ([facility]) Hyperlipidemia ([facility]) Paronychia, finger Family History Problem Relation [...] drinking prior to bedtime. Weight loss. Pepcid FABY [facility] Other 2023 Evaluation note* Encounter Date Diagnosis Assessment Notes Treatment Notes Treatment Clinical Notes Dec, Nasal turbinate hypertrophy (ICD-10 - J34.3) FLonase, saline NS, Sudafed and avoid use of Afin. Refer to ENT. Dec, Nonallergic vasomotor rhinitis (ICD-10 - J30.0) Prednisone tapered over 8 days. Claritin as needed. [facility] Other 02-13-2023 Evaluation note* Encounter Date Diagnosis Assessment Notes Treatment Notes Treatment Clinical Notes Dec, Acute non-recurrent maxillary sinusitis (ICD-10 - J01.00) [facility] Other 01-25-2023 Evaluation note* Encounter Date Diagnosis Assessment Notes Treatment Notes Treatment Clinical Notes Nov, Acute non-recurrent maxillary sinusitis (ICD-10 - J01.00) Instructed to use Robitussin or Mucinex for cough, saline or Flonase NS for congestion, Tylenol for pain and fever. [facility] Other 10-28-2022 Evaluation note* Encounter Date Diagnosis [...] (suspected) exposure to covid-19 (ICD-10 - Z20.822) [facility] Other 10-27-2022 Evaluation note* Encounter Date Diagnosis Assessment Notes Treatment Notes Treatment Clinical Notes Aug, Encounter for immunization (ICD-10 - Z23) Patient presents today for COVID-19 vaccination booster. Patient pre-vaccination form answers reviewed. Patient denies current illness or allergic reaction to any component of a COVD-19 vaccine. Patient provided with copy of current EUA. [facility] Other 02-02-2022 Evaluation note* Encounter Date Diagnosis [...] Patient care instructions given in writting by [facility] document. Additional time spent conducting pre-visit phone call, screening for symptoms, instructions on social distancing, application and removal of PPE, and cleaning of examination room, equipment and supplies was preformed. Patient education given for testing methodology and results. Patient care instructions given in writting by [facility] document. [facility] Other 01-28-2022 Evaluation note* Encounter Date Diagnosis [...] Patient care instructions given in writting by [employer] document. [facility] Other 09-24-2021 Evaluation note* Encounter Date Diagnosis Assessment Notes Treatment Notes Treatment Clinical Notes Jul, Encounter for immunization (ICD-10 - Z23) Patient presents for COVID-19 vaccination #2. Pre-screening form answers evaluated with patient. Patient denies current illness or allergic reaction to component of COVID-19 vaccine. Patient provided with current copy of EUA. [facility] Other Evaluation noteNo assessment information available [facility] Work Phone: Evaluation noteNo Information[facility]Con[facility] Other Evaluation note* Diagnosis Encounter for weight [...] acute Nove mber 2023 11:13am [facility] Work Phone: Evpsxation note* Diagnosis 13 weeks gestation of Second [...] 31 weeks gestation of (HHS-HCC) Third trimester (HHS-HCC) state, incidental History of miscarriage Personal history of other genital system and obstetric disorders Multigravida of advanced maternal age in third trimester (HHS-HCC) documented in this encounter [facility]* Diagnosis Third trimester ([facility]) state, incidental 33 weeks gestation of ([facility]) documented in this encounter [facility] HealthcareHistory general Narrative - Reported* Type Description Date Medical History Child X2 Natural Surgical History No know Surgical history Hospitalization History see above [facility] Other Hisnzsq general Narrative - Reported* Type Description Date Medical History Child X2 Natural Surgical History No Surgical history information Hospitalization History see above [facility] Other Hisezkv general Narrative - Reported* Type Description Date Medical History Child X2 Natural Medical History Body mass index (BMI) of 25.0 to 29.9 Medical History Fatigue Medical History Hyperlipidemia, group A Medical History GARTH (generalized anxiety disorde r) Surgical History No know Surgical history Hospitalization History No know Hospitalization history [facility] Other Chief Complaint and Reason for Visit [...] Nasal turbinate hype rtrophy (J34.3) Referral Organization [facility] Erica russo Referring Provider First Name Robles Referring Provider Last Name Nela Referring Provider Specialty Internal Ca dicine Referred Organization [facility] Referred Provider ZinapreetRobles Referred Address ,[place], [place],[address] Referred Provider Specialty Otolaryngolo gy Referral Priority Routine Referral Appointment Date 2023-02-04 General Notes Rosangela Cruz 09:25:33 AM >received today, notes locked, insurance card attached, referral faxed Rosangela Cruz 01/29/2023 12:42:25 PM >Shannan at Dr. Rodriges office requested referral be faxed again to [phone]. done! Rosangela Cruz 02/05/2023 02:23:23 PM >notes [...] Primary Care Provider Active Delano Francis DO [facility] Attending Provider Active Team Status: [...] January 07, 2024 End: January 07, 2024 Needle Felt Making Machine Operator Relationship Specialty Start Date End Date Robles Charles MD [address] [place] [address] PCP - General Internal Medicine 07/30/23 Team Status: Inactive Member Role Status Dates Robles Charles DO Primary Care Provide r, Attending Provider Active Start: 2024 End: 2024 Team Status: Inactive Member Role Status Dates Robles Charles DO Primary Care Provider Active Start: May 03, 2024 End: May 03, 2024 Caro Chacon APRN [employer] Attending Provider Act alex Start: May 03, 2024 End: May 03, 2024 Team Status: Inactive Member Role Status Dates Robles Charles DO Primary Care Provide r, Attending Provider Active Start: August 29, 2024 End: August 29, 2024 Needle Felt Making Machine Operator Relationship Specialty Start Date End Date Robles Charles MD [address] [place] [phone] PCP - General Internal Medicine 07/30/23 Deisy Villar PA [facility] [place] [address] PCP - Medical [place] [employer] 11/30/23 11/29/99 Needle Felt Making Machine Operator Relationship Specialty Start Date End Date Robles Charles MD [address] [place] [phone] PCP - General Internal Medicine 07/30/23 Deisy Villar PA [address] [place], [place] [address] [address] PCP - Medical [place] [employer] 11/30/23 11/29/99 Needle Felt Making Machine Operator Relationship Specialty Start Date End Date Robles Charles MD [address] [place] [phone] PCP - General Internal Medicine 07/30/23 Deisy Villar PA [facility] [place] [address] PCP - Medical [place] [employer] 11/30/23 11/29/99 Team Status: Inactive Member [...] October 18, 2024 End: October 18, 2024 Needle Felt Making Machine Operator Relationship Specialty Start Date End Date Robles Charles MD [address] [place] [phone] PCP - General Internal Medicine 07/30/23 Deisy Villar PA [address] [place] [address] [place] [address] PCP - Medical [place] [employer] 11/30/23 11/29/99 Needle Felt Making Machine Operator Relationship Specialty Start Date End Date Robles Charles MD [address] [place] [phone] PCP - General Internal Medicine 07/30/23 Deisy Villar PA [address] [place] [address] [place] [address] PCP - Medical [place] [employer] 11/30/23 11/29/99 Needle Felt Making Machine Operator Relationship Specialty Start Date End Date Robles Charles MD [address] [place] [phone] PCP - General Internal Medicine 07/30/23 Deisy Villar PA [address] [place] [address] [place] [address] PCP - Medical [place] [employer] 11/30/23 11/29/99 Needle Felt Making Machine Operator Relationship Specialty Start Date End Date Robles Charles MD [address] [facility] [place] [phone] PCP - General Internal Medicine 07/30/23 Deisy Villar PA [address] [place] [address] [place] [address] PCP - Medical [place] [employer] 11/30/23 11/29/99 Needle Felt Making Machine Operator Relationship Specialty Start Date End Date Robles Charles MD PCP - General Internal Medicine 07/30/23 Deisy Villar PA [address] [place] [address] [place] [address] PCP - Medical [place] [employer] 11/30/23 11/29/99 Needle Felt Making Machine Operator Relationship Specialty Start Date End Date Robles Charles DO PCP - General Internal Medicine 07/30/23 Deisy Villar PA [address] [place] [address] [place] [address] PCP - Medical [place] [employer] 11/30/23 11/29/99 Needle Felt Making Machine Operator Relationship Specialty Start Date End Date Robles Charles DO [address] [place] [facility] [place] [phone] PCP - General Internal Medicine 07/30/23 Deisy Villar PA [address] [place], [place] [address]just[place] [address] PCP - Medical [place] [employer] 11/30/23 11/29/99 Needle Felt Making Machine Operator Relationship Specialty Start Date End Date Robles Charles DO [address] [place] [phone] PCP - General Internal Medicine 07/30/23 Deisy Villar PA [facility] Radha Ramach[address]ran, [place] [address] PCP - Medical [place] [employer] 11/30/23 11/29/99 Needle Felt Making Machine Operator Relationship Specialty Start Date End Date Robles Charles DO [address] [place] [phone] PCP - General Internal Medicine 07/30/23 Deisy Villar PA [address] [place], [place] [address]justus Ramachandran, [place] [address] PCP - Medical [place] [employer] 11/30/23 11/29/99 Needle Felt Making Machine Operator Relationship Specialty Start Date End Date Robles Charles DO [address] [place] [phone] PCP - General Internal Medicine 07/30/23 Deisy Villar PA [address] [place], [place] [address]justus Ramachandran, [facility] PCP - Medical [place] [employer] 11/30/23 11/29/99 Needle Felt Making Machine Operator Relationship Specialty Start Date End Date Robles Charles DO [address] [place] [address] PCP - General Internal Medicine 07/30/23 Deisy Villar PA [facility] [place] [address] PCP - Medical [place] [employer] 11/30/23 11/29/99 Needle Felt Making Machine Operator Relationship Specialty Start Date End Date Robles Charles DO [address] [facility] [place] [phone] PCP - General Internal Medicine 07/30/23 Deisy Villar PA [facility] [place] [address] PCP - Medical [place] [employer] 11/30/23 11/29/99 Needle Felt Making Machine Operator Relationship Specialty Start Date End Date Robles Charles DO [address] [facility] [place] [phone] PCP - General Internal Medicine 07/30/23 Deisy Villar PA [address] [place] [address] PCP - Medical [place] [employer] 11/30/23 11/29/99 Goals (unrecognized section and content) Goals may be documented in a n alternate section INFORMATION SOURCE (unrecogn ized section and content) DATE CREATED AUTHOR 09/02/2022 [facility] DATE CREATED AUTHOR AUTHOR'S ORGANIZ ATION 09/23/2024 [facility] DATE CREATED AUTHOR AUTHOR'S ORGANIZ ATION 06/27/2025 [facility] EPIC FOR RECORDS PERTAINING [...] BE BASED ON THE PRIMARY CLINICAL RECORDS. [facility] [email or web address] [facility] provides no warranty or guarantee of the accuracy or completeness of information in this document.
[2025-07-01 08:28] VITALS: BP 107/66; PULSE 71
== END 2025-07-01 08:50 | disposition home or self-care (01) ==
LOC: US 07:55 → FBC 07:56
PROVIDERS: PCP Internal Medicine; Visit Provider Obstetrics & Gynecology
DX: O09.523 Supervision of elderly multigravida, third trimester (principal); Z3A.34 34 weeks gestation of pregnancy
CPT/HCPCS: 76818

== ENCOUNTER 2025-07-08 07:57 | Outpatient (OUT) | payer OTHER, SELFPAY ==
--- OUTSIDE RECORDS SUMMARY | 2025-07-08 08:01 | XMS_ITS | CCD ---
Author Organization [facility] CliniSyil Care Team Providers Care Pillow Filler Name Role Phone Subha Dillon Unavailable Elsi [...] Gonsalves Unavailable MD Derick Timmons Attending Provider [phone] SHANNON Schaffer Attending Provider [phone] Robles Charles Unavailable MD Liz Conteh Primary Care Provider DO Delano Francis Attending Provider QUANG Villar Attending Provider [phone] DO Robles Charles Primary Care Provider Robles Charles MD Primary Care Provider QUANG Villar Attending Provider [phone] DO Robles Charles Primary Care Provider Deisy Pratt Unavailable DO Robles Charles Primary Care Provider Tito - DO Delano MEZA Attending Provider Tito Delano MEZA Admitting Unavailable Tito Delano MEZA Attending Unavailable Robles Charles Primary Care Unavailable Deisy Villar Admitting Unavailable Deisy Villar Attending Unavailable Robles Charles Primary Care Unavailable Robles Charles DO Primary Care Provider [facility] Delano CRESPO Attending Provider Robles [...] (5 sources) Penicillin V Drug Allergy rash [facility] Other (1 source) Amoxicillin Drug Allergy [address] [facility] Repository (1 source) Penicillins Drug allergy (disorder) [facility] Repository (5 sources) Penicillin Drug Allergy rash [facility] Other (1 source) Substance with penicillin structure and antibacterial mechanism of action (substance) Drug allergy 3 PENICILLINS [facility] Other (20 sources) Amoxicillin Drug Allergy 3 Hives [facility] Healthcare (20 sources) Penicillin G Drug Allergy 3 Unknown [facility] Healthcare (1 source) Penicillins Drug allergy (disorder) 4 [facility] Repository Medications Current Medications Medication Drug Class(es) [...] 12/22/2024 02/02/2025 Active Pre- (10 sources) Pre-Mack [facility] Pre-Mack Active MV-Min-Fe Fum-FA-DH [...] Facility US OB BPP W NON-STRESS on 07-01-2025 [place] [address] Ultrasound Report Signed Patient: ANGELA REYES MR#: [id number] : 1990 Acct:[id number] Age/Sex: 35 / F ADM Date: 07/01/25 Loc: Attending Dr: Ángel Buckner D.O. Ordering Physician: Ángel Buckner D.O. Date of Service: 07/01/25 Procedure(s): US OB BPP w non-stress Accession Number(s): [id number] cc: Robles Charles D.O.; Ángel Buckner D.O. [address] [address] Patient Name: ANGELA REYES MRN: [facility]:[id number] date: 1990 Sex: F Assigned Patient Location: [facility] Current Patient Location: Accession/Order Number: [id number] Exam Date: 07/01/2025 20:05 Report Date: 07/01/2025 20:07 At the request of: ÁNGEL BUCKNER DO Procedure: US OB BPP w non-stress US OB BPP w non-stress 07/01/2025 8:28 AM SIGNS AND SYMPTOMS: MULTIGRAVIDA OF ADVANCED MATERNAL AGE O09.523 PROTOCOL: Transabdominal sonographic images of the gravid uterus COMPARISON: None FINDINGS: heart rate: 150 bpm Amniotic fluid index: 15.31 cm The deepest vertical pocket of amniotic fluid: 5.25 cm Biophysical profile: breathing movements: 2/2 Gross body movements: 2/2 tone: 2/2 Amniotic fluid volume: 2/2 US/US OB BPP w non-stress IMPRESSION: Biophysical profile: 07/07 Impression dictated by: Roddy Yusuf M.D. 07/01/2025 8:07 PM Dictation Location: [place] [address] Electronically authenticated by: [id number] Y Date: 07/01/2025 20:07 Dictated By: Roddy Yusuf M.D. Signed By: 07/01/252008 DD/ 06 TD/TT: Management Lecturer: [facility] Radiology, Radiologi MD ember - 07/01/2025 [place] [address] Ultrasound Report Signed Patient: ANGELA REYES MR#: [id number] : 1990 Acct:[id number] Age/Sex: 35 / F ADM Date: 07/01/25 Loc: US Attending Dr: Ángel Buckner D.O. Ordering Physician: Ángel Buckner D.O. Date of Service: 07/01/25 Procedure(s): US OB BPP w non-stress Accession Number(s): [id number] cc: Robles Charles D.O.; Ángel Buckner D.O. The [address] [address] Patient Name: ANGELA REYES MRN: [facility]:[id number] date: 1990 Sex: F Assigned Patient Location: [facility] Current Patient Location: Accession/Order Number: [id number] Exam Date: 07/01/2025 20:05 Report Date: 07/01/2025 20:07 At the request of: ÁNGEL BUCKNER DO Procedure: US OB BPP w non-stress US OB BPP w non-stress 07/01/2025 8:28 AM SIGNS AND SYMPTOMS: MULTIGRAVIDA OF ADVANCED MATERNAL AGE O09.523 PROTOCOL: Transabdominal sonographic images of the gravid uterus COMPARISON: None FINDINGS: heart rate: 150 bpm Amniotic fluid index: 15.31 cm The deepest vertical pocket of amniotic fluid: 5.25 cm Biophysical profile: breathing movements: 2/2 Gross body movements: 2/2 tone: 2/2 Amniotic fluid volume: 2/2 US/US OB BPP w non-stress IMPRESSION: Biophysical profile: 07/07 Impression dictated by: Roddy Yusuf M.D. 07/01/2025 8:07 PM [facility] Electron[facility] authenticated by: [id number] Y Date: 07/01/2025 20:07 Dictated By: Roddy Yusuf M.D. Signed By: 07/01/252008 DD/ 06 TD/TT: Management Lecturer: [facility] Radiology Study observation (narrative) [facility] US OB BPP W NON-STRESS Ordered By: Radiologist Radiology on 07-01-2025 [facility] Work Phone: US OB FOLLOW UP TRANSABDOMIN AL APPROACHon [...] II, MD, PHD at 26-Jun-2025 11:42:39 PM [facility] Normal Not Available Comment on above: Order Comment: US OB SCAN FOR GROWTH Estimated Date of Delivery: 08/09/25 Gestational Age as of 06/12/2025: 31w5d Urinalysis macro (dipstick) panel (U)on 06-26-2025 Bilirubin, UA Negative Negative - 4(70) +++ mg/dL [facility] Blood, UA Negative Negative - 50 Ezequiel/mcL [facility] Clarity, UA Clear [facility] Color, UA Yellow [facility] Glucose, UA Negative Negative - 1999(110) ++++ mg/dL [facility] Interpretation and review of laboratory results Normal [facility] Ketones, UA Negative Negative - 160(16) ++++ mg/dL [facility] Leukocytes, UA Negative Negative - 500+++ Jason/mcL [facility] Nitrite, UA Negative Negative - Positive [facility] pH, UA 6.5 5 - 9 [facility] Protein, UA Negative Negative - 2000(20) ++++ mg/dL [facility] Spec Grav, UA 1.01 1 - 1.03 [facility] Urobilinogen, UA 1.0 0.2 - 12 mg[facility] W NON-STRESS on 06-24-2025 The [facility] [address] [place] [address] Ultrasound Report Signed Patient: ANGELA REYES MR#: [id number] : 1990 Acct:[id number] Age/Sex: 35 / F ADM Date: 06/24/25 Loc: US Attending Dr: Ángel Buckner D.O. Ordering Physician: Ángel Buckner D.O. Date of Service: 06/24/25 Procedure(s): US OB BPP w non-stress Accession Number(s): [id number] cc: Robles Charles D.O.; Ángel Buckner D.O. The [address] [address] Patient Name: ANGELA REYES MRN: [facility]:[id number] date: 1990 Sex: F Assigned Patient Location: US Current Patient Location: Accession/Order Number: [id number] Exam Date: 06/24/2025 09:33 Report Date: 06/24/2025 09:34 At the request of: ÁNGEL BUCKNER DO Procedure: US OB BPP w non-stress Biophysical profile. Reason for exam: History of miscarriage COMPARISON: 06/17/2025 TECHNIQUE: Transabdominal imaging of the gravid uterus was obtained. FINDINGS: The mat tester reports a BPP of 8 out of 8. MARTY is normal at 15 cm. heart rate 130 bpm. US/US OB BPP w non-stress IMPRESSION: BPP 8 out of 8. Impression dictated by: Justin Mack Jr., D.O. 06/24/2025 9:34 AM Dictation Location: [place] [address] Electronically authenticated by: [id number] Y Date: 06/24/2025 09:34 Dictated By: Justin Mack M.D. Signed By: 06/24/25 0936 DD/ TD/TT: Management Lecturer: [facility] RadiologyNeelimaogbrittanie pa MD - 06/24/2025 [place] [address] Ultrasound Report Signed Patient: ANGELA REYES MR#: [id number] : 1990 Acct:[id number] Age/Sex: 35 / F ADM Date: 06/24/25 Loc: US Attending Dr: Ángel Buckner D.O. Ordering Physician: Ángel Buckner D.O. Date of Service: 06/24/25 Procedure(s): US OB BPP w non-stress Accession Number(s): [id number] cc: Robles Charles D.O.; Ángel Buckner D.O. [place] [address] Patient Name: ANGELA REYES MRN: [facility]:[id number] date: 1990 Sex: F Assigned Patient Location: US Current Patient Location: Accession/Order Number: [id number] Exam Date: 06/24/2025 09:33 Report Date: 06/24/2025 09:34 At the request of: ÁNGEL BUCKNER DO Procedure: US OB BPP w non-stress Biophysical profile. Reason for exam: History of miscarriage COMPARISON: 06/17/2025 TECHNIQUE: Transabdominal imaging of the gravid uterus was obtained. FINDINGS: The mat tester reports a BPP of 8 out of 8. MARTY is normal at 15 cm. heart rate 130 bpm. US/US OB BPP w non-stress IMPRESSION: BPP 8 out of 8. Impression dictated by: Justin Mack Jr., D.O. 06/24/2025 9:34 AM Dictation Location: [place] [address] Electronically authenticated by: [id number] Y Date: 06/24/2025 09:34 Dictated By: Justin Mack M.D. Signed By: 06/24/2536 DD/ 3 TD/TT: Management Lecturer: [facility] Radiology Study observation (narrative) [facility] US OB BPP W NON-STRESS Ordered By: Radiologist Radiology on 06-24-2025 [facility] [employer] Work Phone: US OB BPP W NON-STRESS on 06-17-2025 [place] [address] Ultrasound Report Signed Patient: ANGELA REYES MR#: [id number] : 1990 Acct:[id number] Age/Sex: 35 / F ADM Date: 06/17/25 Loc: [facility] 250-[address]: Ángel Buckner D.O. Ordering Physician: Ángel Buckner D.O. Date of Service: 06/17/25 Procedure(s): US OB BPP w non-stress Accession Number(s): [id number] cc: Robles Charles D.O.; Ángel Buckner D.O. The [address] [id number] Patient Name: ANGELA REYES MRN: [facility]:[id number] date: 1990 Sex: F Assigned Patient Location: [facility] Current Patient Location: [facility] Accession/Order Number: [id number] Exam Date: 06/17/2025 09:17 Report Date: 06/17/2025 [...] Ramachandran M.D. 06/17/2025 9:20 AM Dictation Location: [place] [address] Electronically authenticated by: [id number] Y Date: 06/17/2025 09:20 Dictated By: Carlton Ramachandran M.D. Signed By: 06/17/25921 DD/ 9 TD/TT: Management Lecturer: [facility] Radiology Radiologbrittanie pa MD - 06/17/2025 [place] [address] Ultrasound Report Signed Patient: ANGELA REYES MR#: [id number] : 1990 Acct:[id number] Age/Sex: 35 / F ADM Date: 06/17/25 Loc: [facility] 250-[address]: Ángel Buckner D.O. Ordering Physician: Ángel Buckner D.O. Date of Service: 06/17/25 Procedure(s): US OB BPP w non-stress Accession Number(s): [id number] cc: Robles Charles D.O.; Ángel Buckner D.O. [place] [id number] Patient Name: ANGELA REYES MRN: [id number] date: 1990 Sex: F Assigned Patient Location: [facility] Current Patient Location: [facility] Accession/Order Number: [id number] Exam Date: 06/17/2025 09:17 Report Date: 06/17/2025 [...] Ramachandran M.D. 06/17/2025 9:20 AM Dictation Location: [place] [address] Electronically authenticated by: [id number] Y Date: 06/17/2025 09:20 Dictated By: Carlton Ramachandran M.D. Signed By: 06/17/25921 DD/ 9 TD/TT: Management Lecturer: [facility] Radiology Study observation (narrative) [facility] US OB BPP W NON-STRESS Ordered By: Radiologist Radiology on 06-17-2025 [facility] Work Phone: US OB BPP W NON-STRESS on 06-10-2025 [place] [address] Ultrasound Report Signed Patient: ANGELA REYES MR#: [id number] : 1990 Acct:[id number] Age/Sex: 35 / F ADM Date: 06/10/25 Loc: US Attending Dr: Ángel Buckner D.O. Ordering Physician: Ángel Buckner D.O. Date of Service: 06/10/25 Procedure(s): US OB BPP w non-stress Accession Number(s): [id number] cc: Robles Charles D.O.; Ángel Buckner D.O. The [place] [address] Patient Name: ANGELA REYES MRN: [facility]:[id number] date: 1990 Sex: F Assigned Patient Location: [facility] Current Patient Location: Accession/Order Number: [id number] Exam Date: 06/10/2025 18:36 Report Date: 06/10/2025 [...] Yusuf M.D. 06/10/2025 6:38 PM Dictation Location: [place] [address] Electronically authenticated by: [id number] Y Date: 06/10/2025 18:38 Dictated By: Roddy Yusuf M.D. Signed By: 06/10/25 1841 DD/ 1838 TD/TT: Management Lecturer: [facility] Radiology, Radiologbrittanie pa MD - 06/10/2025 [place] [address] Ultrasound Report Signed Patient: ANGELA REYES MR#: [id number] : 1990 Acct:[id number] Age/Sex: 35 / F ADM Date: 06/10/25 Loc: US Attending Dr: Ángel Buckner D.O. Ordering Physician: Ángel Buckner D.O. Date of Service: 06/10/25 Procedure(s): US OB BPP w non-stress Accession Number(s): [id number] cc: Robles Charles D.O.; Ágnel Buckner D.O. [place] [address] Patient Name: ANGELA REYES MRN: [facility]:[id number] date: 1990 Sex: F Assigned Patient Location: [facility] Current Patient Location: Accession/Order Number: [id number] Exam Date: 06/10/2025 18:36 Report Date: 06/10/2025 [...] Yusuf M.D. 06/10/2025 6:38 PM Dictation Location: [place] [address] Electronically authenticated by: [id number] Y Date: 06/10/2025 18:38 Dictated By: Roddy Yusuf M.D. Signed By: 06/10/251840 DD/ 37 TD/TT: Management Lecturer: [facility] Radiology Study observation (narrative) [facility] US OB BPP W NON-STRESS Ordered By: Radiologist Radiology on 06-10-2025 [facility] Work Phone: US OB BPP W NON-STRESS on 06-03-[address] [address] Ultrasound Report Signed Patient: ANGELA REYES MR#: [id number] : 1990 Acct:[id number] Age/Sex: 35 / F ADM Date: 06/03/25 Loc: US Attending Dr: Ángel Buckner D.O. Ordering Physician: Ángel Buckner D.O. Date of Service: 06/03/25 Procedure(s): US OB BPP w non-stress Accession Number(s): [id number] cc: Robles Charles D.O.; Ángle Buckner D.O. The [address] [address] Patient Name: ANGELA REYES MRN: [facility]:[id number] date: 1990 Sex: F Assigned Patient Location: [facility] Current Patient Location: Accession/Order Number: [id number] Exam Date: 06/03/2025 14:22 Report Date: 06/03/2025 [...] Durand M.D. 06/03/2025 2:23 PM Dictation Location: [place] [address] Electronically authenticated by: [id number] Y Date: 06/03/2025 14:23 Dictated By: Aguilar Durand D.O. Signed By: 06/03/25 1425 DD/ 142 TD/TT: Management Lecturer: [facility] Radiology, Radiologbrittanie pa MD - 06/03/[address] [address] Ultrasound Report Signed Patient: ANGELA REYES MR#: [id number] : 1990 Acct:[id number] Age/Sex: 35 / F ADM Date: 06/03/25 Loc: US Attending Dr: Ángel Buckner D.O. Ordering Physician: Ángel Buckner D.O. Date of Service: 06/03/25 Procedure(s): US OB BPP w non-stress Accession Number(s): [id number] cc: Robles Charles D.O.; Ángel Buckner D.O. [place] [address] Patient Name: ANGELA REYES MRN: [facility]:[id number] date: 1990 Sex: F Assigned Patient Location: [facility] Current Patient Location: Accession/Order Number: [id number] Exam Date: 06/03/2025 14:22 Report Date: 06/03/2025 [...] Durand M.D. 06/03/2025 2:23 PM Dictation Location: [place] [address] Electronically authenticated by: [id number] Y Date: 06/03/2025 14:23 Dictated By: Aguilar Durand D.O. Signed By: 06/03/25 142 DD/ 22 TD/TT: Management Lecturer: [facility] Radiology Study observation (narrative) [facility] US OB BPP W NON-STRESS Ordered By: Radiologist Radiology on 06-03-2025 [facility] Work Phone: Urinalysis macro (dipstick) panel (U)on 05-30-2025 Bilirubin, UA Negative Negative - 4(70) +++ mg/dL [facility] Blood, UA Negative Negative - 50 Ezequiel/mcL [facility] Clarity, UA Clear [facility] Color, UA Yellow [facility] Glucose, UA Negative Negative - 1999(110) ++++ mg/dL [facility] Interpretation and review of laboratory results Normal [facility] Ketones, UA Negative Negative - 160(16) ++++ mg/dL [facility] Leukocytes, UA Negative Negative - 500+++ Jason/mcL [facility] Nitrite, UA Negative Negative - Positive [facility] pH, UA 5.5 5 - 9 [facility] Protein, UA Negative Negative - 1999(20) ++++ mg/dL [facility] Spec Grav, UA 1.02 1 - 1.03 [facility] Urobilinogen, UA 1.0 0.2 - 12 mg/dL [facility] US OB GROWTHon 05-11-2025 [place] [address] Ultrasound Report Signed Patient: ANGELA REYES MR#: [id number] : 1990 Acct:[id number] Age/Sex: 35 / F ADM Date: 05/11/25 Loc: US Attending Dr: Edson Dewitt Ordering Physician: Edson Dewitt Date of Service: 05/11/25 Procedure(s): US OB growth Accession Number(s): [id number] cc: Robles Charles D.O.; Edson Dewitt [place] [id number] Patient Name: ANGELA REYES MRN: [facility]:[id number] date: 1990 Sex: F Assigned Patient Location: US Current Patient Location: US Accession/Order Number: [id number] Exam Date: 05/11/2025 14:38 Report Date: 05/11/2025 [...] Jr., D.O. 05/11/2025 2:40 PM Dictation Location: [place] [address] Electronically authenticated by: [id number] Y Date: 05/11/2025 14:40 Dictated By: Justin Mack M.D. Signed By: 05/11/25 1442 DD/ 39 TD/TT: Management Lecturer: [facility] Radiology, Radiologbrittanie pa MD - 05/11/2025 [place] [address] Ultrasound Report Signed Patient: ANGELA REYES MR#: [id number] : 1990 Acct:[id number] Age/Sex: 35 / F ADM Date: 05/11/25 Loc: US Attending Dr: Edson Dewitt Ordering Physician: Edson Dewitt Date of Service: 05/11/25 Procedure(s): US OB growth Accession Number(s): [id number] cc: Robles Charles D.O.; Edson Dewitt [place] [id number] Patient Name: ANGELA REYES MRN: [facility]:[id number] date: 1990 Sex: F Assigned Patient Location: US Current Patient Location: US Accession/Order Number: [id number] Exam Date: 05/11/2025 14:38 Report Date: 05/11/2025 [...] Jr., D.O. 05/11/2025 2:40 PM Dictation Location: [place] [address] Electronically authenticated by: [id number] Y Date: 05/11/2025 14:40 Dictated By: Justin Mack M.D. Signed By: 05/11/25 144 DD/ 39 TD/TT: Management Lecturer: [facility] Radiology Study observation (narrative) [facility] OB GROWTHOrdered By: Reg ologdarwin Radiology on 05-11-2025 [facility] Work Phone: ALL CBC WITH AUTO DIFFon BASOPHILS ABSOLUTE AUTO 0 N [facility] Basophils/100 WBC (Bld) 0.2 % 0.2 - 2.0 % [facility] Eosinophils/100 WBC (Bld) 1.2 % 0.9 - 7.0 % [facility] Erythrocyte distribution width (RBC) [Ratio] 13.2 % 11.0 - 15.0 % [facility] Hematocrit (Bld) [Volume fraction] 31.9 % Low 36.0 - 48.0 % [facility] Hemoglobin (Bld) [Mass/Vol] 10.6 g/dL Low 12.0 - 16.0 g/dL [facility] IMMATURE GRANULOCYTES ABS AUTO 0.06 High [facility] Immature granulocytes/100 WBC (Bld) 0.6 % High 0.0 - 0.5 % [facility] Interpretation and review of laboratory results Abnormal [facility] LYMPHOCYTES ABSOLUTE AUTO 1.6 [facility] Lymphocytes/100 WBC (Bld) 15.6 % Low 20.5 - 60.0 % [facility] MCH (RBC) [Entitic mass] 32.6 pg 26.7 - 34.0 pg [facility] MCHC (RBC) [Mass/Vol] 33.2 g/dL 29.9 - 35.2 g/dL [facility] MCV (RBC) [Entitic vol] 98.2 fL 81.0 - 99.0 fL [facility] MONOCYTES ABSOLUTE AUTO 0.6 N [facility] Monocytes/100 WBC (Bld) 6 % 1.7 - 12.0 % [facility] NEUTROPHILS ABSOLUTE AUTO 7.7 High [facility] Neutrophils/100 WBC (Bld) 76.4 % High 43.0 - 75.0 % [facility] Platelet mean volume (Bld) [Entitic vol] 9 fL Low 9.5 - 13.5 fL [facility] TBH EO # 0.1 [facility] TB PLT 313 [facility] TB RBC 3.25 Low [facility] WBC 10.1 [facility] GLUCOSE 1 HOURon 04-18-2025 Glucose [Mass/Vol] 96 mg/dL NINF - 13 0 mg/dL [facility] No Panel Informationon 04-18 [facility] US OB LIMITED 1+ FETUSESon 0 04-18-2025 [...] II, MD, PHD at 21-Apr-2025 12:15:59 PM [facility] Normal Not Available Comment on above: Order Comment: US OB INCOMPLETE ANATOMY W US OB TRANSVAGINAL Estimated Date of Delivery: 08/09/25 Gestational Age as of 03/30/2025: 21w1d Urinalysis macro (dipstick) panel (U)on 03-30-2025 Bilirubin, UA Negative Negative - 4(70) +++ mg/dL [facility] Blood, UA Negative Negative - 50 Ezequiel/mcL [facility] Clarity, UA Clear [facility] Color, UA Yellow [facility] Glucose, UA Negative Negative - 1999(110) ++++ mg/dL [facility] Interpretation and review of laboratory results Normal [facility] Ketones, UA Negative Negative - 160(16) ++++ mg/dL [facility] Leukocytes, UA Negative Negative - 500+++ Jason/mcL [facility] Nitrite, UA Negative Negative - Positive [facility] pH, UA 7 5 - 9 [facility] Protein, UA Negative Negative - 1999(20) ++++ mg/dL [facility] Spec Grav, UA 1.02 1 - 1.03 [facility] Urobilinogen, UA 0.2 0.2 - 12 mg/dL [facility] US OB ANATOMYon 03-21-2025 [place] [id number] Ultrasound Report Signed Patient: ANGELA REYES MR#: [id number] : 1990 Acct:[id number] Age/Sex: 35 / F ADM Date: 03/20/25 Loc: US Attending Dr: Deisy Villar Ordering Physician: Deisy Villar Date of Service: 03/20/25 Procedure(s): US OB anatomy Accession Number(s): [id number] cc: Deisy Villar; Robles Charles D.O. [address] [address] Patient Name: ANGELA REYES MRN: [facility]:[id number] date: 1990 Sex: F Assigned Patient Location: US Current Patient Location: Accession/Order Number: [id number] Exam Date: 03/21/2025 13:12 Report Date: 03/21/2025 [...] Aguilar Durand M.D.03/21/2025 1:16 PM Dictation Location: [place] [address] Electronically authenticated by: [id number] Y Date: 03/21/2025 13:16 Dictated By: Aguilar Durand D.O. Signed By: 03/21/25 1319 DD/ 1316 TD/TT: Management Lecturer: [facility] Neelima Wolffogbrittanie pa MD - 03/21/2025 [place] [address] Ultrasound Report Signed Patient: ANGELA REYES MR#: [id number] : 1990 Acct:[id number] Age/Sex: 35 / F ADM Date: 03/20/25 Loc: US Attending Dr: Deisy Villar Ordering Physician: Deisy Villar Date of Service: 03/20/25 Procedure(s): US OB anatomy Accession Number(s): [id number] cc: Deisy Villar; Robles Charles D.O. The [place] [id number] Patient Name: ANGELA REYES MRN: [facility]:[id number] date: 1990 Sex: F Assigned Patient Location: US Current Patient Location: Accession/Order Number: [id number] Exam Date: 03/21/2025 13:12 Report Date: 03/21/2025 [...] Aguilar Durand M.D.03/21/2025 1:16 PM Dictation Location: [place] [address] Electronically authenticated by: [id number] Y Date: 03/21/2025 13:16 Dictated By: Aguilar Durand D.O. Signed By: 03/21/25 1319 DD/ 1316 TD/TT: Management Lecturer: [facility] Radiology Study observation (narrative) [facility] OB ANATOMYOrdered By: Chepe jay Radiology on 03-21-2025 [facility] Work Phone: US OB CERVICAL LENGTHon 03-[address] [place] [address] Ultrasound Report Signed Patient: ANGELA REYES MR#: [id number] : 1990 Acct:[id number] Age/Sex: 35 / F ADM Date: 03/20/25 Loc: US Attending Dr: Deisy Villar Ordering Physician: Deisy Villar Date of Service: 03/20/25 Procedure(s): US OB cervical length Accession Number(s): [id number] cc: Deisy Villar; Robles Charles D.O. The [place] [id number] Patient Name: ANGELA REYES MRN: [facility]:[id number] date: 1990 Sex: F Assigned Patient Location: US Current Patient Location: Accession/Order Number: [id number] Exam Date: 03/21/2025 09:18 Report Date: 03/21/2025 09:19 At the request of: DEISY VILLAR Procedure: US OB cervical length Ultrasound assessment of the cervical length The cervical length is 3.8 cm. The cervical os is closed. US/US OB cervical length IMPRESSION: #3.8 cm cervical length. Impression dictated by: Aguilar Durand M.D.03/21/2025 9:19 AM Dictation Location: [place] [address] Electronically authenticated by: [id number] Y Date: 03/21/2025 09:19 Dictated By: Aguilar Durand D.O. Signed By: 03/21/25921 DD/ 8 TD/TT: Management Lecturer: [facility] Radiology, Radiologbrittanie pa MD - 03/21/2025 [place] [id number] Ultrasound Report Signed Patient: ANGELA REYES MR#: [id number] : 1990 Acct:[id number] Age/Sex: 35 / F ADM Date: 03/20/25 Loc: US Attending Dr: Deisy Villar Ordering Physician: Deisy Villar Date of Service: 03/20/25 Procedure(s): US OB cervical length Accession Number(s): [id number] cc: Deisy Villar; Robles Charles D.O. [place] [id number] Patient Name: ANGELA REYES MRN: [id number] date: 1990 Sex: F Assigned Patient Location: US Current Patient Location: Accession/Order Number: [id number] Exam Date: 03/21/2025 09:18 Report Date: 03/21/2025 09:19 At the request of: DEISY VILLAR Procedure: US OB cervical length Ultrasound assessment of the cervical length The cervical length is 3.8 cm. The cervical os is closed. US/US OB cervical length IMPRESSION: #3.8 cm cervical length. Impression dictated by: Aguilar Durand M.D.03/21/2025 9:19 AM Dictation Location: [place] [address] Electronically authenticated by: [id number] Y Date: 03/21/2025 09:19 Dictated By: Aguilar Durand D.O. Signed By: 03/21/25921 DD/ 8 TD/TT: Management Lecturer: [facility] Radiology Study observation (narrative) [facility] US OB CERVICAL LENGTHOrdered By: Radiologist Radiology on 03-21-2025 [facility] Work Phone: IGP,APTIMA HPV,AGE GDLNon AGE GDLN ACOG TESTING Note . [facility] Comment on above: TESTS RESULT FLAG UN ITS REF RANGE LAB Clinician Provided Cytology Information Source.............Cervix Other.............. No. of containers..01 ThinPrep Vial Age Algo ACOG Lara... 30-65 01 FLAG LEGEND: L-Low Normal,H-High Normal,LL-Alert Low,HH-Alert High <-Panic Low,>-Panic High,A-Abnormal,AA-Critical Abnormal Performed at: 01 =[address] [address] Ilana Heath MD, HPV APTIMA Negative Negative [facility] Comment on above: This nucleic acid am plification test detects fourteen high- risk HPV types (16,18,31,33,35,39,45,51,52,56,58,59,66,68) without differentiation. Performed at: =[address] [id number] Peanut Farmer: Ilana Heath MD, Phone: [phone] Performed at: [address] [id number] Peanut Farmer: Ilana Heath MD, Phone: [phone] IGP, APTIMA HPV, RFX 16/18,45 Note . [facility] Comment on above: TESTS RESULT FLAG UN ITS REF RANGE LAB DIAGNOSIS: 02 NEGATIVE FOR INTRAEPITHELIAL LESION OR MALIGNANCY. THIS SPECIMEN WAS RESCREENED PART OF OUR PIGMENT MIXER PROGRAM. Specimen adequacy: 02 Satisfactory for evaluation. No endocervical component is identified. Performed by: 03 Eugenia Kennedy, Urology Teacher (ASCP) QC reviewed by: 02 Meredith Chávez, Roading Engineer . 02 Note: Note 02 The Pap [...] High,A-Abnormal,AA-Critical Abnormal Performed at: 02 [facility] [address] [address] Ilana Heath MD, 03 KWCYT [facility] [place] [facility] [address] [place] [address] Lloyd Kim MD, SPATULA-ALONE CERVIX [facility] RECURRENT VAGINITIS (HTRX)on 03-03-2025 ATOPOBIUM VAGINAE 0 [facility] ATOPOBIUM VAGINAE Not detected [facility] BVAB 2,3 (BACTERIAL VAGINOSIS ASSOCIATED BACTERIA 2, 3); MOBILUNCUS SPP 0 [facility] BVAB 2,3 (BACTERIAL VAGINOSIS ASSOCIATED BACTERIA [...] [facility] GARDNERELLA VAGINALIS 0 NOM [facility] GARDNERELLA VAGINALIS Not detected N [facility] MEGASPHAERA (TYPES 1, 2) 0 [facility] MEGASPHAERA (TYPES 1, 2) Not detected [facility] MYCOPLASMA GENITALIUM 0 NOM [facility] MYCOPLASMA GENITALIUM Not detected N [facility] NEISSERIA GONORRHOEAE 0 [facility] NEISSERIA GONORRHOEAE Not detected N [facility] TRICHOMONAS VAGINALIS 0 [facility] TRICHOMONAS VAGINALIS Not detected N [facility] Urinalysis macro (dipstick) panel (U)on 03-02-2025 Bilirubin, UA Negative Negative - 4(70) +++ mg/dL [facility] Blood, UA Negative Negative - 50 Ezequiel/mcL [facility] Clarity, UA Clear [facility] Color, UA Yellow [facility] Glucose, UA Negative Negative - 1999(110) ++++ mg/dL [facility] Interpretation and review of laboratory results Normal [facility] Ketones, UA Negative Negative - 160(16) ++++ mg/dL [facility] Leukocytes, UA Negative Negative - 500+++ Jason/mcL [facility] Nitrite, UA Negative Negative - Positive [facility] pH, UA 7 5 - 9 [facility] Protein, UA Negative Negative - 1999(20) ++++ mg/dL [facility] Spec Grav, UA 1.02 1 - 1.03 [facility] Urobilinogen, UA 0.2 0.2 - 12 mg/dL [facility] Urinalysis macro (dipstick) panel (U)on 02-02-2025 Bilirubin, UA Negative Negative - 4(70) +++ mg/dL [facility] Blood, UA Negative Negative - 50 Ezequiel/mcL [facility] Healthcare Clarity, UA Clear [facility] Color, UA Yellow [facility] Glucose, UA Negative Negative - 1999(110) ++++ mg/dL [facility] Interpretation and review of laboratory results Abnormal [facility] Ketones, UA Negative Negative - 160(16) ++++ mg/dL [facility] Leukocytes, UA Trace Negative - 500+++ Jason/mcL [facility] Nitrite, UA Negative Negative - Positive [facility] pH, UA 6 5 - 9 [facility] Healthcare Protein, UA Negative Negative - 1999(20) ++++ mg/dL [facility] Spec Grav, UA 1.025 1 - 1.03 [facility] Urobilinogen, UA 0.2 0.2 - 12 mg/dL [facility] ALL CBC WITH AUTO DIFFon BASOPHILS ABSOLUTE AUTO 0 N [facility] Basophils/100 WBC (Bld) 0.4 % 0.2 - 2.0 % [facility] Eosinophils/100 WBC (Bld) 2.2 % 0.9 - 7.0 % [facility] Erythrocyte distribution width (RBC) [Ratio] 12.5 % 11.0 - 15.0 % [facility] Hematocrit (Bld) [Volume fraction] 34 % Low 36.0 - 48.0 % [facility] Hemoglobin (Bld) [Mass/Vol] 11.7 g/dL Low 12.0 - 16.0 g/dL [facility] IMMATURE GRANULOCYTES ABS AUTO 0.03 [facility] Immature granulocytes/100 WBC (Bld) 0.4 % 0.0 - 0.5 % [facility] Interpretation and review of laboratory results Abnormal [facility] LYMPHOCYTES ABSOLUTE AUTO 1.6 [facility] Lymphocytes/100 WBC (Bld) 20.4 % Low 20.5 - 60.0 % [facility] MCH (RBC) [Entitic mass] 31.5 pg 26.7 - 34.0 pg [facility] MCHC (RBC) [Mass/Vol] 34.4 g/dL 29.9 - 35.2 g/dL [facility] MCV (RBC) [Entitic vol] 91.6 fL 81.0 - 99.0 fL [facility] MONOCYTES ABSOLUTE AUTO 0.6 N [facility] Monocytes/100 WBC (Bld) 7.2 % 1.7 - 12.0 % [facility] NEUTROPHILS ABSOLUTE AUTO 5.6 [facility] Neutrophils/100 WBC (Bld) 69.4 % 43.0 - 75.0 % [facility] Platelet mean volume (Bld) [Entitic vol] 9.6 fL 9.5 - 13.5 fL [facility] TBH EO # 0.2 [facility] TB PLT 302 [facility] RBC 3.71 Low [facility] TB WBC 8 [facility] US OB TRANSVAGINALon 025 US OB TRANSVAGINAL [...] II, MD, PHD at 09-Jan-2025 09:10:54 AM [facility] Normal Not Available Comment on above: Order Comment: US OB TRANSVAGINAL No LMP recorded. [facility] PREG QUANT HCGon 025 HCG QUANTITATIVE 60041 mIU/mL [facility] Comment on above: 5-50 0.2-1 WEEK 50-500 1-2 WEEKS 100-5,000 2-3 WEEKS 500-10,000 3-4 WEEKS 1,000-50,000 4-5 WEEKS 10,000-100,000 5-6 WEEKS 15,000-200,000 6-8 WEEKS 10,000-100,000 2-3 MONTHS [facility] PREG QUANT HCGon 025 HCG QUANTITATIVE 17519 mIU/mL [facility] Comment on above: 5-50 0.2-1 WEEK 50-500 1-2 WEEKS 100-5,000 2-3 WEEKS 500-10,000 3-4 WEEKS 1,000-50,000 4-5 WEEKS 10,000-100,000 5-6 WEEKS 15,000-200,000 6-8 WEEKS 10,000-100,000 2-3 MONTHS [facility] Automated basophil %Ordered By: Delano Francis on 09-22-2024 Basophils/100 WBC (Bld) 0.6 % Normal . [facility] Comment on above: Performed By: #### D HEAS, LC T4, [id number], SEROTON, TEST F + T, T3R, THYGLOB AB, ESTRADIOL, TPO, SHBG, ESTRONE, INSULIN, PROG #### [facility] , #### T4F, TRISTEN, TSH3, A1C WTH eA, FILIBERTO, GLU, T3F #### [facility] [address] [place] [address] Automated basophil countOrde red By: Delano Francis on 09-22-2024 Basophils (Bld) [#/Vol] 0.0 10*3/uL Normal 0.0-0.2 [facility] Comment on above: Result Comment: PERF ORMED BY: [place] [address] PATHOLOGIST CANINE SERVICE INSTRUCTOR TRAINER JOSE GOEL M.D. Performed By: #### D HEAS, LC T4, [id number], SEROTON, TEST F + T, T3R, THYGLOB AB, ESTRADIOL, TPO, SHBG, ESTRONE, INSULIN, PROG #### [facility] , #### T4F, TRISTEN, TSH3, A1C WTH eA, FILIBERTO, GLU, T3F #### [facility] [address] [place] [address] Automated blood monocyte cou ntOrdered By: Delano Francis on 09-22-2024 Monocytes (Bld) [#/Vol] 0.4 10*3/uL Normal 0.0-0.8 [facility] Comment on above: Performed By: #### D HEAS, LC T4, [id number], SEROTON, TEST F + T, T3R, THYGLOB AB, ESTRADIOL, TPO, SHBG, ESTRONE, INSULIN, PROG #### [facility] , #### T4F, TRISTEN, TSH3, A1C WTH eA, FILIBERTO, GLU, T3F #### [address] Automated eosinophil %Ordere d By: Delano Francis on 09-22-2024 Eosinophils/100 WBC (Bld) 1.7 % Normal . [facility] Comment on above: Performed By: #### D HEAS, LC T4, [id number], SEROTON, TEST F + T, T3R, THYGLOB AB, ESTRADIOL, TPO, SHBG, ESTRONE, INSULIN, PROG #### [facility] , #### T4F, TRISTEN, TSH3, A1C WTH eA, FILIBERTO, GLU, T3F #### [address] Automated eosinophil countOr dered By: Delano Francis on 09-22-2024 Eosinophils (Bld) [#/Vol] 0.1 10*3/uL Normal 0.0-0.45 [facility] Comment on above: Performed By: #### D HEAS, LC T4, [id number], SEROTON, TEST F + T, T3R, THYGLOB AB, ESTRADIOL, TPO, SHBG, ESTRONE, INSULIN, PROG #### [facility] , #### T4F, TRISTEN, TSH3, A1C WTH eA, FILIBERTO, GLU, T3F #### [address] Automated monocyte %Ordered By: Delano Francis on 09-22-2024 Monocytes/100 WBC (Bld) 8.7 % Normal . [facility] Comment on above: Performed By: #### D HEAS, LC T4, [id number], SEROTON, TEST F + T, T3R, THYGLOB AB, ESTRADIOL, TPO, SHBG, ESTRONE, INSULIN, PROG #### [facility] , #### T4F, TRISTEN, TSH3, A1C WTH eA, FILIBERTO, GLU, T3F #### [address] [place] [address] [place] Automated neutrophil %Ordere d By: Delano Francis on 09-22-2024 Neutrophils/100 WBC (Bld) 63.7 % Normal . [facility] Comment on above: Performed By: #### D HEAS, LC T4, [id number], SEROTON, TEST F + T, T3R, THYGLOB AB, ESTRADIOL, TPO, SHBG, ESTRONE, INSULIN, PROG #### [facility] , #### T4F, TRISTEN, TSH3, A1C WTH eA, FILIBERTO, GLU, T3F #### [facility] [address] Basophils Auto (Bld) [#/Vol] Ordered By: Delano Francis on 09-22-2024 Basophils (Bld) [#/Vol] Automated basophil count 0.0-0.2 [facility] Basophils/100 WBC Auto (Bld) Ordered By: Delano Francis on 09-22-2024 Basophils/100 WBC (Bld) Automated basophil % . [facility] Calcium [Mass/volume] in Ser um or PlasmaOrdered By: Delano Francis on 09-22-2024 Calcium [Mass/Vol] 9.4 mg/dL Normal 8.6-10.3 [facility] Comment on above: Performed By: #### D HEAS, LC T4, [id number], SEROTON, TEST F + T, T3R, THYGLOB AB, ESTRADIOL, TPO, SHBG, ESTRONE, INSULIN, PROG #### [facility] , #### T4F, TRISTEN, TSH3, A1C WTH eA, FILIBERTO, GLU, T3F #### [facility] [address] Calcium [Mass/Vol] Calcium [Mass/volume ] in Serum or Plasma 8.6-10.3 [facility] Carbon dioxide, total [Moles /volume] in Serum or PlasmaOrdered By: Delano Francis on 09-22-2024 CO2 [Moles/Vol] 29.2 mmol/L Normal 21.0-31.0 [facility] Comment on above: Performed By: #### D DANIELLEAS, LC T4, [id number], SEROTON, TEST F + T, T3R, THYGLOB AB, ESTRADIOL, TPO, SHBG, ESTRONE, INSULIN, PROG #### [facility] , #### T4F, TRISTEN, TSH3, A1C WTH eA, FILIBERTO, GLU, T3F #### [facility] [address] CO2 [Moles/Vol] Carbon dioxide, tota l [Moles/volume] in Serum or Plasma 21.0-31.0 [facility] Chloride [Moles/volume] in S stevo or PlasmaOrdered By: Delano Francis on 09-22-2024 Chloride [Moles/Vol] 105 mmol/L Normal -[address] [place] [address] Comment on above: Performed By: #### D DANIELLEAS, LC T4, [id number], SEROTON, TEST F + T, T3R, THYGLOB AB, ESTRADIOL, TPO, SHBG, ESTRONE, INSULIN, PROG #### [facility] , #### T4F, TRISTEN, TSH3, A1C WTH eA, FILIBERTO, GLU, T3F #### [facility] [address] [place] [address] [place] Chloride [Moles/Vol] Chloride [Moles/vol ume] in Serum or Plasma [address] [place] [address] Cholesterol [Mass/volume] in Serum or PlasmaOrdered By: Delano Francis on 09-22-2024 Cholesterol [Mass/Vol] 217 mg/dL High 140-200 [facility] Comment on above: Chol less than 200 m g/dl low riskChol 201-239 mg/dl borderline riskChol 240 mg/dl and greater high risk Result Comment: Chol less than 200 mg/dl low risk Chol 201-239 mg/dl borderline risk Chol 240 mg/dl and greater high risk Performed By: #### D HEAS, LC T4, [id number], SEROTON, TEST F + T, T3R, THYGLOB AB, ESTRADIOL, TPO, SHBG, ESTRONE, INSULIN, PROG #### [facility] , #### T4F, TRISTEN, TSH3, A1C WTH eA, FILIBERTO, GLU, T3F #### [facility] [address] Cholesterol [Mass/Vol] Cholesterol [Mass/volume] in Serum or Plasma High 140-200 [facility] Comment on above: Chol less than 200 m g/dl low riskChol 201-239 mg/dl borderline riskChol 240 mg/dl and greater high risk Cholesterol in HDL [Mass/vol ume] in Serum or PlasmaOrdered By: Delano Francis on 09-22-2024 Cholesterol in HDL [Mass/Vol] Serum or plasma high density lipoprotein (HDL) cholesterol measurement [facility] Comment on above: HDL CHOL ATP-III CLA SSIFICATION Cardiovascular RiskHDL > or equal to 60 mg/dL LOWHDL < 40 mg/dL HIGH Cholesterol in LDL Calc [Mas s/Vol]Ordered By: Delano Francis on 09-22-2024 Cholesterol in LDL [Mass/Vol] 148 mg/dL High 0-100 [facility] Comment on above: LDL ATP III CLASSIFI CATIONLDL less than 100 mg/dL OptimalLDL 100-129 mg/dL Near or above optimalLDL 130-159 mg/dL Borderline highLDL 160-189 mg/dL HighLDL greater than 189 mg/dL Very high Cholesterol in LDL [Mass/Vol] Cholesterol in LDL [Mass/volume] in Serum or Plasma by calculation High 0-100 [facility] Comment on above: LDL ATP III CLASSIFI CATIONLDL less than 100 mg/dL OptimalLDL 100-129 mg/dL Near or above optimalLDL 130-159 mg/dL Borderline highLDL 160-189 mg/dL HighLDL greater than 189 mg/dL Very high Cholesterol in VLDL Calc [Ma ss/Vol]Ordered By: Delano Francis on 09-22-2024 Cholesterol in VLDL [Mass/Vol] 10 mg/dL [facility] Cholesterol in VLDL [Mass/Vol] Cholesterol in VLDL [Mass/volume] in Serum or Plasma by calculation [facility] Creatinine [Mass/volume] in Serum or PlasmaOrdered By: Delano Francis on 09-22-2024 Creatinine [Mass/Vol] 0.73 mg/dL Normal 0.60-1.20 [facility] Comment on above: Performed By: #### D DANIELLEAS, LC T4, [id number], SEROTON, TEST F + T, T3R, THYGLOB AB, ESTRADIOL, TPO, SHBG, ESTRONE, INSULIN, PROG #### [facility] , #### T4F, TRISTEN, TSH3, A1C WTH eA, FILIBERTO, GLU, T3F #### [address] Creatinine [Mass/Vol] Creatinine [Mass/v olume] in Serum or Plasma 0.60-1.20 [facility] Employee Basic Metabolic [place] 09-22-2024 GFR/1.73 sq M.predicted MDRD (S/P/Bld) [Vol rate/Area] mL/min/{1.73_m2} Normal [facility] Comment on above: Performed By: #### D DANIELLEAS, LC T4, [id number], SEROTON, TEST F + T, T3R, THYGLOB AB, ESTRADIOL, TPO, SHBG, ESTRONE, INSULIN, PROG #### [facility] , #### T4F, TRISTEN, TSH3, A1C WTH eA, FILIBERTO, GLU, T3F #### [address] Employee Complete Blood Coun [facility] 09-22-2024 Mean Corpuscular HGB Conc 34.2 g/dL Normal 32.0-35.0 [facility] Comment on above: Performed By: #### D DANIELLEAS, LC T4, [id number], SEROTON, TEST F + T, T3R, THYGLOB AB, ESTRADIOL, TPO, SHBG, ESTRONE, INSULIN, PROG #### [facility] , #### T4F, TRISTEN, TSH3, A1C WTH eA, FILIBERTO, GLU, T3F #### [address] NRBC% 0.0 /100{WBC} Normal 0-0.5 [facility] Comment on above: Performed By: #### D HEAS, LC T4, [id number], SEROTON, TEST F + T, T3R, THYGLOB AB, ESTRADIOL, TPO, SHBG, ESTRONE, INSULIN, PROG #### [facility] , #### T4F, TRISTEN, TSH3, A1C WTH eA, FILIBERTO, GLU, T3F #### [facility] [address] Employee Lipid Profileon LDL Cholesterol,Calculated 148 mg/dL High 0-100 [facility] Comment on above: Result Comment: LDL ATP III CLASSIFICATION LDL less than 100 mg/dL Optimal LDL 100-129 mg/dL Near or above optimal LDL 130-159 mg/dL Borderline high LDL 160-189 mg/dL High LDL greater than 189 mg/dL Very high Performed By: #### D HEAS, LC T4, [id number], SEROTON, TEST F + T, T3R, THYGLOB AB, ESTRADIOL, TPO, SHBG, ESTRONE, INSULIN, PROG #### [facility] , #### T4F, TRISTEN, TSH3, A1C WTH eA, FILIBERTO, GLU, T3F #### [address] Triglyceride w/Reflex 52 mg/dL Normal 0-149 [facility] Comment on above: Result Comment: TRIG ATP III CLASSIFICATION TRIG less than 150 mg/dL Normal TRIG 150-199 mg/dL Borderline high TRIG 200-500 mg/dL High TRIG greater than 500 mg/dL Very high Standard traceable to the Center for Disease Conrtrol and Prevention (CDC) test method. Performed By: #### D HEAS, LC T4, [id number], SEROTON, TEST F + T, T3R, THYGLOB AB, ESTRADIOL, TPO, SHBG, ESTRONE, INSULIN, PROG #### [facility] , #### T4F, TRISTEN, TSH3, A1C WTH eA, FILIBERTO, GLU, T3F #### [address] VLDL CHOLESTEROL 10 mg/dL Normal [facility] Comment on above: Performed By: #### D HEAS, LC T4, [id number], SEROTON, TEST F + T, T3R, THYGLOB AB, ESTRADIOL, TPO, SHBG, ESTRONE, INSULIN, PROG #### [facility] , #### T4F, TRISTEN, TSH3, A1C WTH eA, FILIBERTO, GLU, T3F #### [address] Employee Thyroid Stim Hormon lonnie 09-22-2024 Employee Thyroid Stim Hormone 2.30 u[iU]/mL Normal 0.45-5.33 [facility] Comment on above: Result Comment: PERF ORMED BY: [place] [address] PATHOLOGIST CANINE SERVICE INSTRUCTOR TRAINER JOSE GOEL M.D. Performed By: #### D HESUE, LC T4, [id number], SEROTON, TEST F + T, T3R, THYGLOB AB, ESTRADIOL, TPO, SHBG, ESTRONE, INSULIN, PROG #### [facility] , #### T4F, TRISTEN, TSH3, A1C WTH eA, FILIBERTO, GLU, T3F #### [address] Eosinophils Auto (Bld) [#/Vo l]Ordered By: Delano Francis on 09-22-2024 Eosinophils (Bld) [#/Vol] Automated eosinophil count 0.0-0.45 [facility] Eosinophils/100 WBC Auto (Bl d)Ordered By: Delano Francis on 09-22-2024 Eosinophils/100 WBC (Bld) Automated eosinophil % . [facility] Erythrocyte distribution wid th Auto (RBC) [Ratio]Ordered By: Delano Francis on 09-22-2024 Erythrocyte distribution width (RBC) [Ratio] Erythrocyte distribution width [Ratio] by Automated count 11.9-15.3 [facility] Erythrocyte distribution wid th [Ratio] by Automated countOrdered By: Delano Francis on 09-22-2024 Erythrocyte distribution width (RBC) [Ratio] 13.2 % Normal 11.9-15.3 [facility] Comment on above: Performed By: #### D HEAS, LC T4, [id number], SEROTON, TEST F + T, T3R, THYGLOB AB, ESTRADIOL, TPO, SHBG, ESTRONE, INSULIN, PROG #### [facility] , #### T4F, TRISTEN, TSH3, A1C WTH eA, FILIBERTO, GLU, T3F #### [place] [address] [place] Erythrocytes [#/volume] in B lood by Automated countOrdered By: Delano Francis on 09-22-2024 RBC (Bld) [#/Vol] 3.91 10*6/uL Normal 3.60-5.00 [facility] Comment on above: Performed By: #### D HEAS, LC T4, [id number], SEROTON, TEST F + T, T3R, THYGLOB AB, ESTRADIOL, TPO, SHBG, ESTRONE, INSULIN, PROG #### [facility] , #### T4F, TRISTEN, TSH3, A1C WTH eA, FILIBERTO, GLU, T3F #### [place] [address] [place] Glucose [Mass/volume] in Ser um or PlasmaOrdered By: Delano Francis on 09-22-2024 Glucose [Mass/Vol] 83 mg/dL Normal 70-100 [facility] Comment on above: Performed By: #### D HEAS, LC T4, [id number], SEROTON, TEST F + T, T3R, THYGLOB AB, ESTRADIOL, TPO, SHBG, ESTRONE, INSULIN, PROG #### [facility] , #### T4F, TRISTEN, TSH3, A1C WTH eA, FILIBERTO, GLU, T3F #### [facility] [address] [place] [address] [place] Glucose [Mass/Vol] Glucose [Mass/volume ] in Serum or Plasma 70-100 [facility] Hematocrit Auto (Bld) [Volum e fraction]Ordered By: Delano Francis on 09-22-2024 Hematocrit (Bld) [Volume fraction] Hematocrit [Volume Fraction] of Blood by Automated count 34.0-46.4 [facility] Hematocrit [Volume Fraction] of Blood by Automated countOrdered By: Delano Francis on 09-22-2024 Hematocrit (Bld) [Volume fraction] 35.9 % Normal 34.0-46.4 [facility] Comment on above: Performed By: #### D VENITA, LC T4, [id number], SEROTON, TEST F + T, T3R, THYGLOB AB, ESTRADIOL, TPO, SHBG, ESTRONE, INSULIN, PROG #### [facility] , #### T4F, TRISTEN, TSH3, A1C WTH eA, FILIBERTO, GLU, T3F #### [facility] [address] [place] [address] [place] Hemoglobin [Mass/volume] in BloodOrdered By: Delano Francis on 09-22-2024 Hemoglobin (Bld) [Mass/Vol] 12.3 g/dL Normal 11.8-15.4 [facility] Comment on above: Performed By: #### Adria NATHAN, LC T4, [id number], SEROTON, TEST F + T, T3R, THYGLOB AB, ESTRADIOL, TPO, SHBG, ESTRONE, INSULIN, PROG #### [facility] , #### T4F, TRISTEN, TSH3, A1C WTH eA, FILIBERTO, GLU, T3F #### [facility] [address] [place] [address] [place] Hemoglobin (Bld) [Mass/Vol] Hemoglobin [Mass/volume] in Blood 11.8-15.4 [facility] Leukocytes [#/volume] correc calvin for nucleated erythrocytes in Blood by Automated counOrdered By: Delano Francis on 09-22-2024 WBC corrected for nucl RBC Auto (Bld) [#/Vol] 5.1 10*3/uL 3.8-11.6 [facility] WBC corrected for nucl RBC Auto (Bld) [#/Vol] Leukocytes [#/volume] corrected for nucleated erythrocytes in Blood by Automated coun 3.8-11.6 [facility] Leukocytes [#/volume] in Blo od by Automated countOrdered By: Delano Francis on 09-22-2024 WBC (Bld) [#/Vol] 5.1 10*3/uL Normal 3.8-11.6 [facility] Comment on above: Performed By: #### D HEAS, LC T4, [id number], SEROTON, TEST F + T, T3R, THYGLOB AB, ESTRADIOL, TPO, SHBG, ESTRONE, INSULIN, PROG #### [facility] , #### T4F, TRISTEN, TSH3, A1C WTH eA, FILIBERTO, GLU, T3F #### [facility] [address] [place] [address] Lymphocytes Auto (Bld) [#/Vo l]Ordered By: Delano Francis on 09-22-2024 Lymphocytes (Bld) [#/Vol] Lymphocytes [#/volume] in Blood by Automated count 1.00-4.8 [facility] Lymphocytes [#/volume] in Bl ood by Automated countOrdered By: Delano Francis on 09-22-2024 Lymphocytes (Bld) [#/Vol] 1.3 10*3/uL Normal 1.00-4.8 [facility] Comment on above: Performed By: #### D HEAS, LC T4, [id number], SEROTON, TEST F + T, T3R, THYGLOB AB, ESTRADIOL, TPO, SHBG, ESTRONE, INSULIN, PROG #### [facility] , #### T4F, TRISTEN, TSH3, A1C WTH eA, FILIBERTO, GLU, T3F #### [facility] [address] [place] [address] Lymphocytes/100 WBC Auto (Bl d)Ordered By: Delano Francis on 09-22-2024 Lymphocytes/100 WBC (Bld) Lymphocytes/100 leukocytes in Blood by Automated count . [facility] Lymphocytes/100 leukocytes i n Blood by Automated countOrdered By: Delano Francis on 09-22-2024 Lymphocytes/100 WBC (Bld) 25.3 % Normal . [facility] Comment on above: Performed By: #### D HEAS, LC T4, [id number], SEROTON, TEST F + T, T3R, THYGLOB AB, ESTRADIOL, TPO, SHBG, ESTRONE, INSULIN, PROG #### [facility] , #### T4F, TRISTEN, TSH3, A1C WTH eA, FILIBERTO, GLU, T3F #### [facility] [address] [place] [address] MCH Auto (RBC) [Entitic mass ]Ordered By: Delano Francis on 09-22-2024 MCH (RBC) [Entitic mass] MCH [Entitic mass] by Automated count 24.7-34.3 [facility] MCH [Entitic mass] by Automa calvin countOrdered By: Delano Francis on 09-22-2024 MCH (RBC) [Entitic mass] 31.4 pg Normal 24.7-34.3 [facility] Comment on above: Performed By: #### D HEAS, LC T4, [id number], SEROTON, TEST F + T, T3R, THYGLOB AB, ESTRADIOL, TPO, SHBG, ESTRONE, INSULIN, PROG #### [facility] , #### T4F, TRISTEN, TSH3, A1C WTH eA, FILIBERTO, GLU, T3F #### [facility] [address] [place] [address] MCHC Auto (RBC) [Mass/Vol]Or dered By: Delano Francis on 09-22-2024 MCHC (RBC) [Mass/Vol] 34.2 g/dL 32.0-35.0 [facility] MCHC (RBC) [Mass/Vol] MCHC [Mass/volume] by Automated count 32.0-35.0 [facility] MCV Auto (RBC) [Entitic vol] Ordered By: Delano Francis on 09-22-2024 MCV (RBC) [Entitic vol] MCV [Entitic vol ume] by Automated count 80-100 [facility] MCV [Entitic volume] by Auto mated countOrdered By: Delano Francis on 09-22-2024 MCV (RBC) [Entitic vol] 91.7 fL Normal 80-100 [facility] Comment on above: Performed By: #### D HEAS, LC T4, [id number], SEROTON, TEST F + T, T3R, THYGLOB AB, ESTRADIOL, TPO, SHBG, ESTRONE, INSULIN, PROG #### [facility] , #### T4F, TRISTEN, TSH3, A1C WTH eA, FILIBERTO, GLU, T3F #### [facility] [address] [place] [address] Monocytes Auto (Bld) [#/Vol] Ordered By: Delano Francis on 09-22-2024 Monocytes (Bld) [#/Vol] Automated blood monocyte count 0.0-0.8 [facility] Monocytes/100 WBC Auto (Bld) Ordered By: Delano Francis on 09-22-2024 Monocytes/100 WBC (Bld) Automated monocyte % . [facility] Neutrophils Auto (Bld) [#/Vo l]Ordered By: Delano Francis on 09-22-2024 Neutrophils (Bld) [#/Vol] Neutrophils [#/volume] in Blood by Automated count 1.8-7.7 [facility] Neutrophils [#/volume] in Bl ood by Automated countOrdered By: Delano Francis on 09-22-2024 Neutrophils (Bld) [#/Vol] 3.2 10*3/uL Normal 1.8-7.7 [facility] Comment on above: Performed By: #### D VENITA, JOSSE T4, [id number], SEROTON, TEST F + T, T3R, THYGLOB AB, ESTRADIOL, TPO, SHBG, ESTRONE, INSULIN, PROG #### [facility] , #### T4F, TRISTEN, TSH3, A1C WTH eA, FILIBERTO, GLU, T3F #### [facility] [address] [place] [address] Neutrophils/100 WBC Auto (Bl d)Ordered By: Delano Francis on 09-22-2024 Neutrophils/100 WBC (Bld) Automated neutrophil % . [facility] No Panel InformationOrdered By: Delano Francis on 09-22-2024 Estimated GFR (CKD-EPI) > 60.0 mL/Min [facility] Creatinine Clearance (Chem N/A [facility] Nucleated erythrocytes [Pres ence] in Blood by Automated countOrdered By: Delano Francis on 09-22-2024 Nucleated RBC Auto Ql (Bld) 0.0 /100{WBC} 0-0.5 [facility] Nucleated RBC Auto Ql (Bld) Nucleated erythrocytes [Presence] in Blood by Automated count 0-0.5 [facility] Platelet mean volume Auto (B ld) [Entitic vol]Ordered By: Delano Francis on 09-22-2024 Platelet mean volume (Bld) [Entitic vol] Platelet mean volume [Entitic volume] in Blood by Automated count 6.3-10.7 [facility] Platelet mean volume [Entiti c volume] in Blood by Automated countOrdered By: Delano Francis on 09-22-2024 Platelet mean volume (Bld) [Entitic vol] 7.3 fL Normal 6.3-10.7 [facility] Comment on above: Performed By: #### D HEAS, LC T4, [id number], SEROTON, TEST F + T, T3R, THYGLOB AB, ESTRADIOL, TPO, SHBG, ESTRONE, INSULIN, PROG #### [facility] , #### T4F, TRISTEN, TSH3, A1C WTH eA, FILIBERTO, GLU, T3F #### [facility] [address] Platelets Auto (Bld) [#/Vol] Ordered By: Delano Francis on 09-22-2024 Platelets (Bld) [#/Vol] Platelets [#/vol ume] in Blood by Automated count 150-450 [facility] Platelets [#/volume] in Bloo d by Automated countOrdered By: Delano Francis on 09-22-2024 Platelets (Bld) [#/Vol] 328 10*3/uL Normal 150-450 [facility] Comment on above: Performed By: #### D HEAS, LC T4, [id number], SEROTON, TEST F + T, T3R, THYGLOB AB, ESTRADIOL, TPO, SHBG, ESTRONE, INSULIN, PROG #### [facility] , #### T4F, TRISTEN, TSH3, A1C WTH eA, FILIBERTO, GLU, T3F #### [facility] [address] [place] [address] [place] Potassium [Moles/volume] in Serum or PlasmaOrdered By: Delano Francis on 09-22-2024 Potassium [Moles/Vol] 4.5 mmol/L Normal 3.5-5.1 [facility] Comment on above: Performed By: #### D HEAS, LC T4, [id number], SEROTON, TEST F + T, T3R, THYGLOB AB, ESTRADIOL, TPO, SHBG, ESTRONE, INSULIN, PROG #### [facility] , #### T4F, TRISTEN, TSH3, A1C WTH eA, FILIBERTO, GLU, T3F #### [facility] [address] [place] [id number] [place] Potassium [Moles/Vol] Potassium [Moles/v olume] in Serum or Plasma 3.5-5.1 [facility] RBC Auto (Bld) [#/Vol]Ordere d By: Delano Francis on 09-22-2024 RBC (Bld) [#/Vol] Erythrocytes [#/volu me] in Blood by Automated count 3.60-5.00 [facility] Serum or plasma anion gap de terminationOrdered By: Delano Francis on 09-22-2024 Anion gap [Moles/Vol] 8.3 mmol/L Normal 6.0-15.0 [facility] Comment on above: Performed By: #### D HEAS, LC T4, [id number], SEROTON, TEST F + T, T3R, THYGLOB AB, ESTRADIOL, TPO, SHBG, ESTRONE, INSULIN, PROG #### [facility] , #### T4F, TRISTEN, TSH3, A1C WTH eA, FILIBERTO, GLU, T3F #### [facility] [address] [place] [address] [place] Anion gap [Moles/Vol] Serum or plasma an ion gap determination 6.0-15.0 [facility] Serum or plasma high density lipoprotein (HDL) cholesterol measurementOrdered By: Delano Francis on 09-22-2024 Cholesterol in HDL [Mass/Vol] 59 mg/dL Normal 23-92 [facility] Comment on above: HDL CHOL ATP-III CLA SSIFICATION Cardiovascular RiskHDL > or equal to 60 mg/dL LOWHDL < 40 mg/dL HIGH Result Comment: HDL CHOL ATP-III CLASSIFICATION Cardiovascular Risk HDL > or equal to 60 mg/dL LOW HDL < 40 mg/dL HIGH Performed By: #### D DANIELLEAS, LC T4, [id number], SEROTON, TEST F + T, T3R, THYGLOB AB, ESTRADIOL, TPO, SHBG, ESTRONE, INSULIN, PROG #### [facility] , #### T4F, TRISTEN, TSH3, A1C WTH eA, FILIBERTO, GLU, T3F #### [facility] [address] Serum or plasma total choles terol/high density lipoprotein (HDL) cholesterol mass ratOrdered By: Delano Francis on 09-22-2024 Cholesterol.total/Alivia sterol in HDL [Mass ratio] 3.7 {ratio} Normal <5.0 [facility] Comment on above: Performed By: #### D DANIELLEAS, LC T4, [id number], SEROTON, TEST F + T, T3R, THYGLOB AB, ESTRADIOL, TPO, SHBG, ESTRONE, INSULIN, PROG #### [facility] , #### T4F, TRSITEN, TSH3, A1C WTH eA, FILIBERTO, GLU, T3F #### [facility] [address] Cholesterol.total/Aliiva sterol in HDL [Mass ratio] Serum or plasma total cholesterol/high density lipoprotein (HDL) cholesterol mass rat <5.0 [facility] Sodium [Moles/volume] in Ser um or PlasmaOrdered By: Delano Francis on 09-22-2024 Sodium [Moles/Vol] 138 mmol/L Normal 136-145 [facility] Comment on above: Performed By: #### D HEAS, LC T4, [id number], SEROTON, TEST F + T, T3R, THYGLOB AB, ESTRADIOL, TPO, SHBG, ESTRONE, INSULIN, PROG #### [facility] , #### T4F, TRISTEN, TSH3, A1C WTH eA, FILIBERTO, GLU, T3F #### [facility] [address] [place] [address] [place] Sodium [Moles/Vol] Sodium [Moles/volume ] in Serum or Plasma 136-145 [facility] Thyrotropin [Units/volume] i n Serum or PlasmaOrdered By: Delano Francis on 09-22-2024 TSH Qn 2.30 m[IU]/L 0.45-5.33 [facility] TSH Qn Thyrotropin [Units/volume] in Serum or Plasma 0.45-5.33 [facility] Triglyceride [Mass/volume] i n Serum or PlasmaOrdered By: Delano Francis on 09-22-2024 Triglyceride [Mass/Vol] 52 mg/dL 0-149 [facility] Comment on above: TRIG ATP III CLASSIF ICATIONTRIG less than 150 mg/dL NormalTRIG 150-199 mg/dL Borderline highTRIG 200-500 mg/dL High TRIG greater than 500 mg/dL Very highStandard traceable to the Center for Disease Conrtrol and Prevention (CDC) test method. Triglyceride [Mass/Vol] Triglyceride [Mass/volume] in Serum or Plasma 0-149 [facility] Comment on above: TRIG ATP III CLASSIF ICATIONTRIG less than 150 mg/dL NormalTRIG 150-199 mg/dL Borderline highTRIG 200-500 mg/dL High TRIG greater than 500 mg/dL Very highStandard traceable to the Center for Disease Conrtrol and Prevention (CDC) test method. Urea nitrogen [Mass/volume] in Serum or PlasmaOrdered By: Delano Francis on 09-22-2024 Urea nitrogen [Mass/Vol] 9 mg/dL Normal 7-25 [facility] Comment on above: Performed By: #### D HEAS, LC T4, [id number], SEROTON, TEST F + T, T3R, THYGLOB AB, ESTRADIOL, TPO, SHBG, ESTRONE, INSULIN, PROG #### [facility] , #### T4F, TRISTEN, TSH3, A1C WTH eA, FILIBERTO, GLU, T3F #### [facility] [address] [place] [id number] [facility] Urea nitrogen [Mass/Vol] Urea nitrogen [Mass/volume] in Serum or Plasma 06-23 [facility] WBC Auto (Bld) [#/Vol]Ordere d By: Delano Francis on 09-22-2024 WBC (Bld) [#/Vol] Leukocytes [#/volume ] in Blood by Automated count 3.8-11.6 [facility] IGP,APTIMA HPV,AGE GDLNon AGE GDLN ACOG TESTING Note . [facility] Comment on above: TESTS RESULT FLAG UN ITS REF RANGE LAB Clinician Provided Cytology Information Source.............Cervix;Endocervix No. of containers..01 ThinPrep Vial Age Algo ACOG Lara... 30-65 FLAG LEGEND: L-Low Normal,H-High Normal,LL-Alert Low,HH-Alert High <-Panic Low,>-Panic High,A-Abnormal,AA-Critical Abnormal Performed at: 01 =G [facility] [place] [address] Ilana Heath MD, HPV APTIMA Negative Negative [facility] Comment on above: This nucleic acid am plification test detects fourteen high- risk HPV types (16,18,31,33,35,39,45,51,52,56,58,59,66,68) without differentiation. Performed at: =G - [facility] [address] [id number] Peanut Farmer: Ilana Heath MD, Phone: [phone] Performed at: - [facility], [place] [id number] Peanut Farmer: Ilana Heath MD, Phone: [phone] IGP, APTIMA HPV, RFX 16/18,45 Note . [facility] Comment on above: TESTS RESULT FLAG UN ITS REF RANGE LAB DIAGNOSIS: 02 NEGATIVE FOR INTRAEPITHELIAL LESION OR MALIGNANCY. Specimen adequacy: 02 Satisfactory for evaluation. No endocervical component is identified. Performed by: 02 Chema Camargo, Roading Engineer (ASCP) . 02 Note: Note 02 The [...] High <-Panic Low,>-Panic High,A-Abnormal,AA-Critical Abnormal Performed at: [facility] [place] [address] Ilana Heath MD, BRUSH-SPATULA CERVIX ENDOCERVIX [facility] 1,25 Dihydroxy Vit D Calcitr olon 01-07-2024 1,25 Dihydroxy Vit D Calcitrol 56.6 pg/mL Normal 24.8-81.5 [facility] Comment on above: Result Comment: Perf ormed at: - [facility] [address] [id number] Peanut Farmer: Quinton Wolf MD, Phone: [phone] Performed By: #### D VENITA, LC T4, [id number], SEROTON, TEST F + T, T3R, THYGLOB AB, ESTRADIOL, TPO, SHBG, ESTRONE, INSULIN, PROG #### [facility] , #### T4F, TRISTEN, TSH3, A1C WTH eA, FILIBERTO, GLU, T3F #### [facility] [address] A1C with Estimated Average G luon 01-07-2024 Glucose [Mass/Vol] 105 mg/dL Normal [facility] Comment on above: Result Comment: PERF ORMED BY: [place] [address] PATHOLOGIST CANINE SERVICE INSTRUCTOR TRAINER JOSE GOEL M.D. Performed By: #### D VENITA, LC T4, [id number], SEROTON, TEST F + T, T3R, THYGLOB AB, ESTRADIOL, TPO, SHBG, ESTRONE, INSULIN, PROG #### [facility] , #### T4F, TRISTEN, TSH3, A1C WTH eA, FILIBERTO, GLU, T3F #### [facility] [address] [place] [address] [place] Antithyroglobulin Abon 01-07 Antithyroglobulin Ab <1.0 Normal 0.0-0.9 [facility] Comment on above: Result Comment: Thyr oglobulin Antibody measured by [employer] Performed at: - [facility] [id number] Peanut Farmer: Baudilio Leyva PhD, Phone: [phone] Performed By: #### D HEAS, LC T4, [id number], SEROTON, TEST F + T, T3R, THYGLOB AB, ESTRADIOL, TPO, SHBG, ESTRONE, INSULIN, PROG #### [facility] , #### T4F, TRISTEN, TSH3, A1C WTH eA, FILIBERTO, GLU, T3F #### [address] Cortisolon 01-07-2024 Cortisol 6.8 ug/dL Normal [facility] Comment on above: Result Comment: Refe rence range: AM 6 - 24 ug/dl PM <10 ug/dl [facility] dance costume designer and method: [employer] D[employer], POLYCLONAL ANTIBODY CORTISOL ASSAY. PERFORMED BY: [place] [address] PATHOLOGIST CANINE SERVICE INSTRUCTOR TRAINER JOSE GOEL M.D. Performed By: #### D DANIELLEAS, LC T4, [id number], SEROTON, TEST F + T, T3R, THYGLOB AB, ESTRADIOL, TPO, SHBG, ESTRONE, INSULIN, PROG #### [facility] , #### T4F, TRISETN, TSH3, A1C WTH eA, FILIBERTO, GLU, T3F #### [address] Dehydroepiandrosterone Sulfa teOrdered By: Deisy Villar on 01-07-2024 Dehydroepiandrosterone Sulfate 174.0 ug/dL Normal 84.8-378.0 [facility] Comment on above: Performed By: #### D HEAS, LC T4, [id number], SEROTON, TEST F + T, T3R, THYGLOB AB, ESTRADIOL, TPO, SHBG, ESTRONE, INSULIN, PROG #### [facility] , #### T4F, TRISTEN, TSH3, A1C WTH eA, FILIBERTO, GLU, T3F #### [address] Estradiolon 01-07-2024 Estradiol 300.0 pg/mL Normal . [facility] Comment on above: Result Comment: Adul t Female Range Follicular phase 12.5 - 166.0 Ovulation phase 85.8 - 498.0 Luteal phase 43.8 - 211.0 Postmenopausal <6.0 - 54.7 1st trimester 215.0 - >4300.0 Elías ECLIA methodology Performed By: #### D HEAS, LC T4, [id number], SEROTON, TEST F + T, T3R, THYGLOB AB, ESTRADIOL, TPO, SHBG, ESTRONE, INSULIN, PROG #### [facility] , #### T4F, TRISTEN, TSH3, A1C WTH eA, FILIBERTO, GLU, T3F #### [facility] [address] [place] [address] [place] Estrone, Serumon 01-07-2024 Estrone, Serum 46 pg/mL Normal 27-[address] [facility] Comment on above: Result Comment: Rang e Adult (Premenopausal) 27 - 231 Menstrual Cycle (1-10 days) 19 - 149 Menstrual Cycle (11-20 days) 32 - 176 Menstrual Cycle (21-30 days) 37 - 200 Performed at: - [facility] [id number] Peanut Farmer: Quinton Wolf MD, Phone: [phone] Performed By: #### D HEAS, LC T4, [id number], SEROTON, TEST F + T, T3R, THYGLOB AB, ESTRADIOL, TPO, SHBG, ESTRONE, INSULIN, PROG #### [facility] , #### T4F, TRISTEN, TSH3, A1C WTH eA, FILIBERTO, GLU, T3F #### [facility] [address] [place] [address] [facility] Ferritin [Mass/volume] in Se rum or PlasmaOrdered By: Deisy Villar on 01-07-2024 Ferritin [Mass/Vol] 44.8 ng/mL Normal 11.0-306.8 [facility] Comment on above: Performed By: #### D HEAS, LC T4, [id number], SEROTON, TEST F + T, T3R, THYGLOB AB, ESTRADIOL, TPO, SHBG, ESTRONE, INSULIN, PROG #### [facility] , #### T4F, TRISTEN, TSH3, A1C WTH eA, FILIBERTO, GLU, T3F #### [facility] [address] Free testosterone measuremen t by LC-MS/MSOrdered By: Deisy Villar on 01-07-2024 Testosterone Free [Mass/Vol] 0.3 pg/mL 0.0-4.2 [facility] Comment on above: Performed at: [address] [id number] Director: Baudilio Leyva PhD, Phone: [phone] at: - [facility] [id number] Director: Quinton Wolf MD, Phone: [phone] Glucose [Mass/volume] in Ser um or PlasmaOrdered By: Deisy Villar on 01-07-2024 Glucose [Mass/Vol] 84 mg/dL Normal 70-100 [facility] Comment on above: ADA recommended refe rence rangeRandom Glucose Reference Range is dependent on time and content of last meal. Glucose of more than 200 mg/dL in a nonstressed, ambulatory subject supports the diagnosis of Diabetes Mellitus. Result Comment: [place] om Glucose Reference Range is dependent on time and content of last meal. Glucose of more than 200 mg/dL in a nonstressed, ambulatory subject supports the diagnosis of Diabetes Mellitus. ADA recommended reference range Performed By: #### D HESUE, JOSSE T4, [id number], SEROTON, TEST F + T, T3R, THYGLOB AB, ESTRADIOL, TPO, SHBG, ESTRONE, INSULIN, PROG #### [facility] , #### T4F, TRISTEN, TSH3, A1C WTH eA, FILIBERTO, GLU, T3F #### [facility] [address] Glucose mean value [Mass/vol ume] in Blood Estimated from glycated hemoglobinOrdered By: Deisy Villar on 01-07-2024 Average glucose Estimated from glycated hemoglobin (Bld) [Mass/Vol] 105 mg/dL [facility] Hemoglobin A1c percentageOrd ered By: Deisy Villar on 01-07-2024 HbA1c (Bld) [Mass fraction] 5.3 % Normal 4.3-5.6 [facility] Comment on above: Increased risk for d iabetes: 5.7 - 6.4diabetes: >6.4glycemic control for adults with diabetes: <7.0 Result Comment: Incr eased risk for diabetes: 5.7 - 6.4 diabetes: >6.4 glycemic control for adults with diabetes: <7.0 Performed By: #### D HEAS, LC T4, [id number], SEROTON, TEST F + T, T3R, THYGLOB AB, ESTRADIOL, TPO, SHBG, ESTRONE, INSULIN, PROG #### [facility] , #### T4F, TRISTEN, TSH3, A1C WTH eA, FILIBERTO, GLU, T3F #### [facility] [address] Insulinon 01-07-2024 Insulin 4.5 u[iU]/mL Normal 2.6-24.9 [facility] Comment on above: Result Comment: Perf ormed at: - [facility] [address] [id number] Peanut Farmer: Baudilio Leyva PhD, Phone: [phone] Performed By: #### D HEAS, LC T4, [id number], SEROTON, TEST F + T, T3R, THYGLOB AB, ESTRADIOL, TPO, SHBG, ESTRONE, INSULIN, PROG #### [facility] , #### T4F, TRISTEN, TSH3, A1C WTH eA, FILIBERTO, GLU, T3F #### [facility] [address] Lab Alie Thyroxine (T4)on T4 [Mass/Vol] 8.2 ug/dL Normal 4.5-12.0 [facility] Comment on above: Performed By: #### D HEAS, LC T4, [id number], SEROTON, TEST F + T, T3R, THYGLOB AB, ESTRADIOL, TPO, SHBG, ESTRONE, INSULIN, PROG #### [facility] , #### T4F, TRISTEN, TSH3, A1C WTH eA, FILIBERTO, GLU, T3F #### [facility] [address] No Panel InformationOrdered By: Deisy Villar on 01-07-2024 Free Thyroxine (T4) Direct 8.2 ug/dL 4.5-12.0 [facility] Reverse Triiodothyronine (T3) 18.9 ng/dL 9.2-24.1 [facility] Comment on above: This test was develo ped and its performance characteristicsdetermined by [employer]. It has not been cleared orapproved by the Food and Drug Administration.Performed at: [facility] [employer] [id number] Director: Quinton Wolf MD, Phone: [phone] Sex Hormone Binding Globulin 95.4 nmol/L 24.6-122.0 [facility] Comment on above: Performed at: [address] [id number] Director: Baudilio Leyva PhD, Phone: [phone] Plasma serotonin measurement (mass/volume)Ordered By: Deisy Villar on 01-07-2024 Serotonin (P) [Mass/Vol] 71 ng/mL [facility] Comment on above: This test was develo ped and its performance characteristicsdetermined by [employer]. It has not been cleared orapproved by the Food and Drug Administration.Performed at: [facility] [employer] [id number] Director: Quinton Wolf MD, Phone: [phone] Progesteroneon 01-07-2024 Progesterone 0.2 ng/mL Normal . [facility] Comment on above: Result Comment: Foll icular phase 0.1 - 0.9 Luteal phase 1.8 - 23.9 Ovulation phase 0.1 - 12.0 First trimester 11.0 - 44.3 Second trimester 25.4 - 83.3 Third trimester 58.7 - 214.0 Postmenopausal 0.0 - 0.1 Performed By: #### D HEAS, LC T4, [id number], SEROTON, TEST F + T, T3R, THYGLOB AB, ESTRADIOL, TPO, SHBG, ESTRONE, INSULIN, PROG #### [facility] , #### T4F, TRISTEN, TSH3, A1C WTH eA, FILIBERTO, GLU, T3F #### [facility] [address] Random cortisol measurementO rdered By: Deisy Villar on 01-07-2024 Cortisol [Mass/Vol] 6.8 ug/dL [facility] Comment on above: [facility] dance costume designer and method:[employer] DXI, POLYCLONAL ANTIBODY CORTISOL ASSAY.Reference range: AM 6 - 24 ug/dl PM <10 ug/dl Serotonin, Serumon 4 Serotonin, Serum 71 ng/mL Normal 31-207 [facility] Comment on above: Result Comment: This test was developed and its performance characteristics determined by [employer]. It has not been cleared or approved by the Food and Drug Administration. Performed at: [facility] [employer] [id number] Peanut Farmer: Quinton Wolf MD, Phone: [phone] PERFORMED BY: [place] [address] PATHOLOGIST CANINE SERVICE INSTRUCTOR TRAINER JOSE GOEL M.D. Performed By: #### D HEAS, LC T4, [id number], SEROTON, TEST F + T, T3R, THYGLOB AB, ESTRADIOL, TPO, SHBG, ESTRONE, INSULIN, PROG #### [facility] , #### T4F, TRISTEN, TSH3, A1C WTH eA, FILIBERTO, GLU, T3F #### [facility] [address] Serum estrone measurementOrd ered By: Deisy Villar on 01-07-2024 E1 [Mass/Vol] 46 pg/mL 27-231 [facility] Comment on above: Range Adult (Premeno pausal) 27 - 231 Menstrual Cycle (1-10 days) 19 - 149 Menstrual Cycle (11-20 days) 32 - 176 Menstrual Cycle (21-30 days) 37 - 200Performed at: [facility] [address] [id number] Director: Quinton Wolf MD, Phone: [phone] Serum or plasma calcitriol m easurement (mass/volume)Ordered By: Deisy Villar on 01-07-2024 1,25-dihydroxyvitamin D3 [Mass/Vol] 56.6 pg/mL 24.8-81.5 [facility] Comment on above: Performed at: [facility] [address] [id number] Director: Quinton Wolf MD, Phone: [phone] Serum or plasma estradiol (E 2) measurement (mass/volume)Ordered By: Deisy Villar on 01-07-2024 E2 [Mass/Vol] 300.0 pg/mL . [facility] Comment on above: Adult Female Range F ollicular phase 12.5 - 166.0 Ovulation phase 85.8 - 498.0 Luteal phase 43.8 - 211.0 Postmenopausal <6.0 - 54.7 1st trimester 215.0 - >4300.0Roche ECLIA methodology Serum or plasma insulin kevin urement (units/volume)Ordered By: Deisy Vlilar on 01-07-2024 Insulin Qn 4.5 u[iU]/mL 2.6-24.9 [facility] Comment on above: Performed at: - [facility] [address] [id number] Director: Baudilio Leyva PhD, Phone: [phone] Serum or plasma progesterone measurement (mass/volume)Ordered By: [...] on 01-07-2024 Thyroglobulin Ab Qn [IU]/mL 0.0-0.9 [facility] Comment on above: Thyroglobulin Antibo dy measured by [employer] CoinplugMethodologyPerformed at: [facility] [id number] Director: Baudilio Leyva PhD, Phone: [phone] Serum or plasma thyroperoxid ase antibody assay (units/volume)Ordered By: Deisy Villar on 01-07-2024 TPO Ab Qn [IU]/mL 0-34 [facility] Comment on above: Performed at: [facility] [address] [id number] Director: Baudilio Leyva PhD, Phone: [phone] Sex Hormone Binding Globulin on 01-07-2024 Sex Hormone Binding Globulin 95.4 Normal 24.6-122.0 [facility] Comment on above: Result Comment: Perf ormed at: [facility] [address] [id number] Peanut Farmer: Baudilio Leyva PhD, Phone: [phone] Performed By: #### D HEAS, LC T4, [id number], SEROTON, TEST F + T, T3R, THYGLOB AB, ESTRADIOL, TPO, SHBG, ESTRONE, INSULIN, PROG #### [facility] , #### T4F, TRISTEN, TSH3, A1C WTH eA, FILIBERTO, GLU, T3F #### [facility] [address] Testosterone Free and TotalO rdered By: Deisy Villar on 01-07-2024 Testosterone [Mass/Vol] 16 ng/dL Normal 8-60 [facility] Comment on above: Performed By: #### D HEAS, LC T4, [id number], SEROTON, TEST F + T, T3R, THYGLOB AB, ESTRADIOL, TPO, SHBG, ESTRONE, INSULIN, PROG #### [facility] , #### T4F, TRISTEN, TSH3, A1C WTH eA, FILIBERTO, GLU, T3F #### [facility] [address] [place] [address] [place] Testosterone Free and Totalo n 02-08-2024 Testosterone,Free 0.3 pg/mL Normal 0.0-4.2 [facility] Comment on above: Result Comment: Perf ormed at: [address] [id number] Peanut Farmer: Baudilio Leyva PhD, Phone: [phone] Performed at: [address] [id number] Peanut Farmer: Quinton Wolf MD, Phone: [phone] Performed By: #### D HEAS, LC T4, [id number], SEROTON, TEST F + T, T3R, THYGLOB AB, ESTRADIOL, TPO, SHBG, ESTRONE, INSULIN, PROG #### [facility] , #### T4F, TRISTEN, TSH3, A1C WTH eA, FILIBERTO, GLU, T3F #### [facility] [address] Thyroid Peroxidase Antibodie son 01-07-2024 Thyroid Peroxidase Antibodies <9 Normal 0-34 [facility] Comment on above: Result Comment: Perf ormed at: [facility] [address] [id number] Peanut Farmer: Baudilio Leyva PhD, Phone: [phone] Performed By: #### D HEAS, LC T4, [id number], SEROTON, TEST F + T, T3R, THYGLOB AB, ESTRADIOL, TPO, SHBG, ESTRONE, INSULIN, PROG #### [facility] , #### T4F, TRISTEN, TSH3, A1C WTH eA, FILIBERTO, GLU, T3F #### [facility] [address] Thyrotropin [Units/volume] i n Serum or PlasmaOrdered By: Deisy Villar on 01-07-2024 TSH Qn 1.80 m[IU]/L Normal 0.45-5.33 [facility] Comment on above: Performed By: #### D HEAS, LC T4, [id number], SEROTON, TEST F + T, T3R, THYGLOB AB, ESTRADIOL, TPO, SHBG, ESTRONE, INSULIN, PROG #### [facility] , #### T4F, TRISTEN, TSH3, A1C WTH eA, FILIBERTO, GLU, T3F #### [address] Thyroxine (T4) free [Mass/vo lume] in Serum or PlasmaOrdered By: Deisy Villar on 01-07-2024 Free T4 [Mass/Vol] 0.88 ng/dL Normal 0.61-1.12 [facility] Comment on above: Performed By: #### D HEAS, LC T4, [id number], SEROTON, TEST F + T, T3R, THYGLOB AB, ESTRADIOL, TPO, SHBG, ESTRONE, INSULIN, PROG #### [facility] , #### T4F, TRISTEN, TSH3, A1C WTH eA, FILIBERTO, GLU, T3F #### [place] [address] [place] Triiodothyronine (T3) Freeon 01-07-2024 Triiodothyronine (T3) Free 3.90 pg/mL Normal 2.50-3.90 [facility] Comment on above: Result Comment: PERF ORMED BY: [place] [address] PATHOLOGIST CANINE SERVICE INSTRUCTOR TRAINER JOSE GOEL M.D. Performed By: #### D HEAS, LC T4, [id number], SEROTON, TEST F + T, T3R, THYGLOB AB, ESTRADIOL, TPO, SHBG, ESTRONE, INSULIN, PROG #### [facility] , #### T4F, TRISTEN, TSH3, A1C WTH eA, FILIBERTO, GLU, T3F #### [address] Triiodothyronine (T3) Free [ Mass/volume] in Serum or PlasmaOrdered By: Deisy Villar on 01-07-2024 Free T3 [Mass/Vol] 3.90 pg/mL 2.50-3.90 [facility] Triiodothyronine (T3) Revers lonnie 01-07-2024 Triiodothyronine (T3) Reverse 18.9 ng/dL Normal 9.2-24.1 [facility] Comment on above: Result Comment: This test was developed and its performance characteristics determined by [facility]. It has not been cleared or approved by the Food and Drug Administration. Performed at: [facility] [address] [id number] Peanut Farmer: Quinton Wolf MD, Phone: [phone] Performed By: #### D HEAS, LC T4, [id number], SEROTON, TEST F + T, T3R, THYGLOB AB, ESTRADIOL, TPO, SHBG, ESTRONE, INSULIN, PROG #### [facility] , #### T4F, TRISTEN, TSH3, A1C WTH eA, FILIBERTO, GLU, T3F #### [facility] [address] Alanine aminotransferase [En zymatic activity/volume] in Serum or PlasmaOrdered By: Delano Francis on 09-17-2023 ALT [Catalytic activity/Vol] 20 U/L 7-52 [facility] Albumin [Mass/volume] in Ser um or Plasma by Bromocresol green (BCG) dye binding methoOrdered By: Delano Francis on 09-17-2023 Albumin BCG dye [Mass/Vol] 4.3 g/dL 3.5-5.7 [facility] Alkaline phosphatase [Enzyma tic activity/volume] in Serum or PlasmaOrdered By: Delano Francis on 09-17-2023 ALP [Catalytic activity/Vol] 62 U/L 34-104 [facility] Aspartate aminotransferase [ Enzymatic activity/volume] in Serum or PlasmaOrdered By: Delano Francis on 09-17-2023 AST [Catalytic activity/Vol] 22 U/L 13-39 [facility] Basophils Auto (Bld) [#/Vol] Ordered By: Delano Francis on 09-17-2023 Basophils (Bld) [#/Vol] 0.0 10*3/uL 0.0-0.2 [facility] Basophils/100 WBC Auto (Bld) Ordered By: Delano Francis on 09-17-2023 Basophils/100 WBC (Bld) 0.4 % . [facility] Bilirubin.total [Mass/volume ] in Serum or PlasmaOrdered By: Delano Francis on 09-17-2023 Bilirubin [Mass/Vol] 0.7 mg/dL 0.3-1.0 [facility] Calcium [Mass/volume] in Ser um or PlasmaOrdered By: Delano Francis on 09-17-2023 Calcium [Mass/Vol] 9.4 mg/dL 8.6-10.3 [facility] Carbon dioxide, total [Moles /volume] in Serum or PlasmaOrdered By: Delano Francis on 09-17-2023 CO2 [Moles/Vol] 26.2 mmol/L 21.0-31.0 [facility] Chloride [Moles/volume] in S stevo or PlasmaOrdered By: Delano Francis on 09-17-2023 Chloride [Moles/Vol] 102 mmol/L 98-107 [facility] Cholesterol [Mass/volume] in Serum or PlasmaOrdered By: Delano Francis on 09-17-2023 Cholesterol [Mass/Vol] 214 mg/dL 140-200 [facility] Comment on above: Chol less than 200 m g/dl low riskChol 201-239 mg/dl borderline riskChol 240 mg/dl and greater high risk Cholesterol in LDL Calc [Mas s/Vol]Ordered By: Delano Francis on 09-17-2023 Cholesterol in LDL [Mass/Vol] 161 mg/dL 0-100 [facility] Comment on above: LDL ATP III CLASSIFI CATIONLDL less than 100 mg/dL OptimalLDL 100-129 mg/dL Near or above optimalLDL 130-159 mg/dL Borderline highLDL 160-189 mg/dL HighLDL greater than 189 mg/dL Very high Cholesterol in VLDL Calc [Ma ss/Vol]Ordered By: Delano Francis on 09-17-2023 Cholesterol in VLDL [Mass/Vol] 9 mg/dL [facility] Creatinine [Mass/volume] in Serum or PlasmaOrdered By: Delano Francis on 09-17-2023 Creatinine [Mass/Vol] 0.79 mg/dL 0.60-1.20 [facility] Eosinophils Auto (Bld) [#/Vo l]Ordered By: Delano Francis on 09-17-2023 Eosinophils (Bld) [#/Vol] 0.1 10*3/uL 0.0-0.45 [facility] Eosinophils/100 WBC Auto (Bl d)Ordered By: Delano Francis on 09-17-2023 Eosinophils/100 WBC (Bld) 0.9 % . [facility] Erythrocyte distribution wid th Auto (RBC) [Ratio]Ordered By: Delano Francis on 09-17-2023 Erythrocyte distribution width (RBC) [Ratio] 12.4 % 11.9-15.3 [facility] Globulin Calc (S) [Mass/Vol] Ordered By: Delano Francis on 09-17-2023 Globulin (S) [Mass/Vol] 2.5 g/dL [facility] Glucose [Mass/volume] in Ser um or PlasmaOrdered By: Delano Francis on 09-17-2023 Glucose [Mass/Vol] 75 mg/dL 70-100 [facility] Hematocrit Auto (Bld) [Volum e fraction]Ordered By: Delano Francis on 09-17-2023 Hematocrit (Bld) [Volume fraction] 34.2 % 34.0-46.4 [facility] Hemoglobin [Mass/volume] in BloodOrdered By: Delano Francis on 09-17-2023 Hemoglobin (Bld) [Mass/Vol] 11.8 g/dL 11.8-15.4 [facility] Leukocytes [#/volume] correc calvin for nucleated erythrocytes in Blood by Automated counOrdered By: Delano Francis on 09-17-2023 WBC corrected for nucl RBC Auto (Bld) [#/Vol] 5.9 10*3/uL 3.8-11.6 [facility] Lymphocytes Auto (Bld) [#/Vo l]Ordered By: Delano Francis on 09-17-2023 Lymphocytes (Bld) [#/Vol] 1.8 10*3/uL 1.00-4.8 [facility] Lymphocytes/100 WBC Auto (Bl d)Ordered By: Delano Francis on 09-17-2023 Lymphocytes/100 WBC (Bld) 30.5 % . [facility] MCH Auto (RBC) [Entitic mass ]Ordered By: Delano Francis on 09-17-2023 MCH (RBC) [Entitic mass] 31.8 pg 24.7-34.3 [facility] MCHC Auto (RBC) [Mass/Vol]Or dered By: Delano Francis on 09-17-2023 MCHC (RBC) [Mass/Vol] 34.4 g/dL 32.0-35.[address] [facility] MCV Auto (RBC) [Entitic vol] Ordered By: Delano Francis on 09-17-2023 MCV (RBC) [Entitic vol] 92.5 fL 80-100 [facility] Monocytes Auto (Bld) [#/Vol] Ordered By: Delano Francis on 09-17-2023 Monocytes (Bld) [#/Vol] 0.5 10*3/uL 0.0-0.8 [facility] Monocytes/100 WBC Auto (Bld) Ordered By: Delano Francis on 09-17-2023 Monocytes/100 WBC (Bld) 9.2 % . [facility] Neutrophils Auto (Bld) [#/Vo l]Ordered By: Delano Francis on 09-17-2023 Neutrophils (Bld) [#/Vol] 3.5 10*3/uL 1.8-7.7 [facility] Neutrophils/100 WBC Auto (Bl d)Ordered By: Delano Francis on 09-17-2023 Neutrophils/100 WBC (Bld) 59.0 % . [facility] No Panel InformationOrdered By: Delano Francis on 09-17-2023 Estimated GFR (CKD-EPI) > 60.0 mL/Min [facility] Creatinine Clearance (Chem N/A [facility] Nucleated erythrocytes [Pres ence] in Blood by Automated countOrdered By: Delano Francis on 09-17-2023 Nucleated RBC Auto Ql (Bld) 0.2 /100{WBC} 0-0.5 [facility] Platelet mean volume Auto (B ld) [Entitic vol]Ordered By: Delano Francis on 09-17-2023 Platelet mean volume (Bld) [Entitic vol] 8.1 fL 6.3-10.7 [facility] Platelets Auto (Bld) [#/Vol] Ordered By: Delano Francis on 09-17-2023 Platelets (Bld) [#/Vol] 250 10*3/uL 150-450 [facility] Potassium [Moles/volume] in Serum or PlasmaOrdered By: Delano Francis on 09-17-2023 Potassium [Moles/Vol] 4.0 mmol/L 3.5-5.1 [facility] Protein [Mass/volume] in Ser um or PlasmaOrdered By: Delano Francis on 09-17-2023 Protein [Mass/Vol] 6.8 g/dL 6.4-8.9 [facility] RBC Auto (Bld) [#/Vol]Ordere d By: Delano Francis on 09-17-2023 RBC (Bld) [#/Vol] 3.70 10*6/uL 3.60-5.00 [facility] Serum or plasma albumin/glob ulin mass ratioOrdered By: Delano Francis on 09-17-2023 Albumin/Globulin [Mass ratio] 1.7 {ratio} [facility] Serum or plasma anion gap de terminationOrdered By: Delano Francis on 09-17-2023 Anion gap [Moles/Vol] 10.8 mmol/L 6.0-15.0 [facility] Serum or plasma high density lipoprotein (HDL) cholesterol measurementOrdered By: Delano Francis on 09-17-2023 Cholesterol in HDL [Mass/Vol] 43 mg/dL 23-92 [facility] Comment on above: HDL CHOL ATP-III CLA SSIFICATION Cardiovascular RiskHDL > or equal to 60 mg/dL LOWHDL < 40 mg/dL HIGH Serum or plasma total choles terol/high density lipoprotein (HDL) cholesterol mass ratOrdered By: Delano Francis on 09-17-2023 Cholesterol.total/Alivia sterol in HDL [Mass ratio] 5.0 {ratio} <5.0 [facility] Sodium [Moles/volume] in Ser um or PlasmaOrdered By: Delano Francis on 09-17-2023 Sodium [Moles/Vol] 135 mmol/L 136-145 [facility] Thyrotropin [Units/volume] i n Serum or PlasmaOrdered By: Delano Francis on 09-17-2023 TSH Qn 1.04 m[IU]/L 0.45-5.33 [facility] Triglyceride [Mass/volume] i n Serum or PlasmaOrdered [...] 09-17-2023 Urea nitrogen [Mass/Vol] 7 mg/dL 7-25 [facility] WBC Auto (Bld) [#/Vol]Ordere d By: Delano Francis on 09-17-2023 WBC (Bld) [#/Vol] 5.9 10*3/uL 3.8-11.6 [facility] Mononucleosis Test, [place] 1 Heterophile Ab LA Ql (S) Negative [facility] Other Quick Strepon 09-26-2022 S. pyogenes Org specific cx Ql (Throat) Negative [facility] Other Quick Strep [facility] Other SARS-CoV-2 (COVID-19) RNA NA A+probe Ql (Resp)on 09-26-2022 SARS-CoV-2 (COVID-19) RNA ROB+probe Ql (Unsp spec) Negative [facility] Other PAP ACOG PANEL 2: 30 to 65on 09-01-2022 . . Normal [facility] Comment on above: Result Comment: Perf ormed at: WB Performed By: #### [id number] #### [facility] [address] [address] [address] Zonia Zhang Age Gdln ACOG Testing 30-65 Normal [facility] Comment on above: Performed By: #### [id number] #### [facility] [address] [address] [address] Zonia Zhang DIAGNOSIS: Comment Normal [facility] Comment on above: Result Comment: NEGA TIVE FOR INTRAEPITHELIAL LESION OR MALIGNANCY. Performed at: WB Performed By: #### [id number] #### [facility] [address] [address] [address] Zonia Zhang HPV Aptima Negative Normal Negative [facility] Comment on above: Result Comment: This nucleic acid amplification test detects fourteen high-risk HPV types (16,18,31,33,35,39,45,51,52,56,58,59,66,68) without differentiation. Performed at: =G Performed By: #### [id number] #### [facility] [address] [place] [address] Dr. Zonia Zhang Methodology: Comment Normal [facility] Comment on above: Result Comment: This liquid based ThinPrep(R) pap test was screened with the use of an image guided system. Performed at: WB Performed By: #### [id number] #### [facility] [address] [place] [address] Dr. Zonia Zahng Note: Comment Normal [facility] Comment on above: Result Comment: The Pap smear is a screening test designed to aid in the detection of premalignant and malignant conditions of the uterine cervix. It is not a diagnostic procedure and should not be used as the sole means of detecting cervical cancer. Both false-positive and false-negative reports do occur. . Performed at: WB Performed By: #### [id number] #### [facility] [address] [address] [address] Zonia Zhang Performed by: Comment Normal [facility] Comment on above: Result Comment: Negin Tomas, Roading Engineer (ASCP) Performed at: WB Performed By: #### [id number] #### [facility] [address] [place] [address] Dr. Zonia Zhang Specimen adequacy: Comment Normal [facility] Comment on above: Result Comment: Sati sfactory for evaluation. Endocervical and/or squamous metaplastic cells (endocervical component) are present. Performed at: WB Performed By: #### [id number] #### [facility] [address] [place] [address] Dr. Zonia Zhang Basophils Auto (Bld) [#/Vol] Ordered By: Delano Francis on 08-07-2022 Basophils (Bld) [#/Vol] 0.0 10*3/uL 0.0-0.2 [facility] Basophils/100 WBC Auto (Bld) Ordered By: Delano Francis on 08-07-2022 Basophils/100 WBC (Bld) 0.5 % . [facility] Blood hemoglobin measurement (mass/volume)Ordered By: Delano Francis on 08-07-2022 Hemoglobin (Bld) [Mass/Vol] 12.7 g/dL 11.8-15.4 [facility] Blood leukocytes automated c ount (number/volume)Ordered By: Delano Francis on 08-07-2022 WBC (Bld) [#/Vol] 5.0 10*3/uL 4.5-11.0 [facility] Body fluid albumin measureme nt (mass/volume)Ordered By: Delano Francis on 08-07-2022 Albumin (Body fld) [Mass/Vol] 4.1 g/dL 3.2-5.5 [facility] Cholesterol [Mass/volume] in Serum or PlasmaOrdered By: Delano Francis on 08-07-2022 Cholesterol [Mass/Vol] 253 mg/dL 140-200 [facility] Comment on above: Chol less than 200 m g/dl low risk Chol 201-239 mg/dl borderline risk Chol 240 mg/dl and greater high risk Chol less than 200 m g/dl low riskChol 201-239 mg/dl borderline riskChol 240 mg/dl and greater high risk Cholesterol in LDL Calc [Mas s/Vol]Ordered By: Delano Francis on 08-07-2022 Cholesterol in LDL [Mass/Vol] 181 mg/dL 0-100 [facility] Comment on above: LDL ATP III CLASSIFI [...] 08-07-2022 Cholesterol in VLDL [Mass/Vol] 12 mg/dL [facility] Creatinine and Glomerular fi ltration rate.predicted panel (S/P/Bld)Ordered By: Delano Francis on 08-07-2022 Creatinine [Mass/Vol] 0.76 mg/dL 0.44-1.03 [facility] Eosinophils Auto (Bld) [#/Vo l]Ordered By: Delano Francis on 08-07-2022 Eosinophils (Bld) [#/Vol] 0.1 10*3/uL 0.0-0.45 [facility] Eosinophils/100 WBC Auto (Bl d)Ordered By: Delano Francis on 08-07-2022 Eosinophils/100 WBC (Bld) 1.6 % . [facility] Erythrocyte distribution wid th Auto (RBC) [Ratio]Ordered By: Delano Francis on 08-07-2022 Erythrocyte distribution width (RBC) [Ratio] 12.6 % 11.9-15.3 [facility] Estimated glomerular filtrat ion rate (GFR) non- AmericanOrdered By: Delano Francis on 08-07-2022 GFR/1.73 sq M.predicted among non-blacks MDRD (S/P/Bld) [Vol rate/Area] > 60 mL/Min [facility] Globulin Calc (S) [Mass/Vol] Ordered By: Delano Francis on 08-07-2022 Globulin (S) [Mass/Vol] 2.3 g/dL [facility] Hematocrit Auto (Bld) [Volum e fraction]Ordered By: Delano Francis on 08-07-2022 Hematocrit (Bld) [Volume fraction] 37.5 % 34.0-46.4 [facility] - Chemistry and C hemistry - challengeOrdered By: Delano Francis on 08-07-2022 Glucose [Mass/Vol] 88 mg/dL 70-100 [facility] - Hematology and Cell countsOrdered By: Delano Francis on 08-07-2022 Nucleated RBC/100 WBC (Bld) [Ratio] 0.1 % 0-0.5 [facility] Lymphocytes Auto (Bld) [#/Vo l]Ordered By: Delano Francis on 08-07-2022 Lymphocytes (Bld) [#/Vol] 1.4 10*3/uL 1.00-4.8 [facility] Lymphocytes/100 WBC Auto (Bl d)Ordered By: Delano Francis on 08-07-2022 Lymphocytes/100 WBC (Bld) 28.1 % . [facility] MCH Auto (RBC) [Entitic mass ]Ordered By: Delano Francis on 08-07-2022 MCH (RBC) [Entitic mass] 31.8 pg 24.7-34.3 [facility] MCHC Auto (RBC) [Mass/Vol]Or dered By: Delano Francis on 08-07-2022 MCHC (RBC) [Mass/Vol] 33.8 g/dL 32.0-35.0 [facility] MCV Auto (RBC) [Entitic vol] Ordered By: Delano Francis on 08-07-2022 MCV (RBC) [Entitic vol] 94.3 fL 80-100 [facility] Monocyte %Ordered By: Delano Francis on 08-07-2022 Monocyte % 60 mg/dL 35-149 [facility] Comment on above: TRIG ATP III CLASSIF [...] (Bld) [#/Vol] Ordered By: Delano Francis on 09-08-2022 Monocytes (Bld) [#/Vol] 0.5 10*3/uL 0.0-0.8 [facility] Monocytes/100 WBC Auto (Bld) Ordered By: Delano Francis on 08-07-2022 Monocytes/100 WBC (Bld) 10.1 % . [facility] Neutrophils Auto (Bld) [#/Vo l]Ordered By: Delano Francis on 08-07-2022 Neutrophils (Bld) [#/Vol] 3.0 10*3/uL 1.8-7.7 [facility] Neutrophils/100 WBC Auto (Bl d)Ordered By: Delano Francis on 08-07-2022 Neutrophils/100 WBC (Bld) 59.7 % . [facility] No Panel InformationOrdered By: Delano Francis on 08-07-2022 Estimated GFR () > 60 mL/Min [facility] Comment on above: GFR estimated refere nce range: According to KDOQI guidelines, <60 ml/min/1.73m2 is sufficient to diagnose a patient with chronic kidney disease. Nicotine Metabolite Negative Cutoff=25 [facility] Comment on above: Performed at: - L [address] [id number] Director: Quinton Wolf MD, Phone: [phone] Pharmacy Creatinine Clearance (Chem N/A [facility] Platelet mean volume Auto (B ld) [Entitic vol]Ordered By: Delano Francis on 08-07-2022 Platelet mean volume (Bld) [Entitic vol] 7.8 fL 6.3-10.7 [facility] Platelets Auto (Bld) [#/Vol] Ordered By: Delano Francis on 08-07-2022 Platelets (Bld) [#/Vol] 275 10*3/uL 150-450 [facility] Protein [Mass/volume] in Ser um or PlasmaOrdered By: Delano Francis on 08-07-2022 Protein [Mass/Vol] 6.4 g/dL 6.1-7.9 [facility] RBC Auto (Bld) [#/Vol]Ordere d By: Delano Francis on 08-07-2022 RBC (Bld) [#/Vol] 3.97 10*6/uL 3.60-5.00 [facility] Serum or plasma alanine troy otransferase measurement without P-5'-P (enzymatic activiOrdered By: Delano Francis on 08-07-2022 ALT No additional P-5'-P [Catalytic activity/Vol] 13 U/L 10-60 [facility] Serum or plasma albumin/glob ulin mass ratioOrdered By: Delano Francis on 08-07-2022 Albumin/Globulin [Mass ratio] 1.8 {ratio} [facility] Serum or plasma alkaline nova sphatase measurement (enzymatic activity/volume)Ordered By: Delano Francis on 08-07-2022 ALP [Catalytic activity/Vol] 52 U/L 32-92 [facility] Serum or plasma anion gap de terminationOrdered By: Delano Francis on 08-07-2022 Anion gap [Moles/Vol] 11.7 mmol/L 6.0-15.0 [facility] Serum or plasma aspartate am inotransferase measurement (enzymatic activity/volume)Ordered By: Delano Francis on 08-07-2022 AST [Catalytic activity/Vol] 15 U/L 10-42 [facility] Serum or plasma calcium kevin urement (mass/volume)Ordered By: Delano Francis on 08-07-2022 Calcium [Mass/Vol] 9.8 mg/dL 8.2-10.2 [facility] Serum or plasma chloride ra surement (moles/volume)Ordered By: Delano Francis on 08-07-2022 Chloride [Moles/Vol] 101 mmol/L 95-114 [facility] Serum or plasma high density lipoprotein (HDL) cholesterol measurementOrdered By: Delano Francis on 08-07-2022 Cholesterol in HDL [Mass/Vol] 60 mg/dL 35-85 [facility] Comment on above: HDL CHOL ATP-III CLA SSIFICATION Cardiovascular Risk HDL > or equal to 60 mg/dL LOW HDL < 40 mg/dL HIGH HDL CHOL ATP-III CLA SSIFICATION Cardiovascular RiskHDL > or equal to 60 mg/dL LOWHDL < 40 mg/dL HIGH Serum or plasma potassium me asurement (moles/volume)Ordered By: Delano Francis on 08-07-2022 Potassium [Moles/Vol] 4.4 mmol/L 3.5-5.1 [facility] Serum or plasma sodium measu rement (moles/volume)Ordered By: Delano Francis on 08-07-2022 Sodium [Moles/Vol] 136 mmol/L 136-146 [facility] Serum or plasma total biliru bin measurement (mass/volume)Ordered By: Delano Francis on 08-07-2022 Bilirubin [Mass/Vol] 1.0 mg/dL 0.3-1.2 [facility] Serum or plasma total carbon dioxide measurement (moles/volume)Ordered By: Delano Francis on 08-07-2022 CO2 [Moles/Vol] 27.7 mmol/L 22.0-30.0 [facility] Serum or plasma total choles terol/high density lipoprotein (HDL) cholesterol mass ratOrdered By: Delano Francis on 08-07-2022 Cholesterol.total/Alivia sterol in HDL [Mass ratio] 4.2 {ratio} <5.0 [facility] Serum or plasma urea nitroge n measurement (mass/volume)Ordered By: Delano Francis on 08-07-2022 Urea nitrogen [Mass/Vol] 9 mg/dL 9- [facility] TSH DL <= 0.005 mIU/L QnOrde red By: Delano Francis on 08-07-2022 TSH Qn 1.43 m[IU]/L 0.45-5.33 [facility] T3, TOTAL (TRIIODOTHYRONINE) on 06-07-2022 T3, TOTAL 88 ng/dL Normal 71-180 [facility] Comment on above: Performed By: #### T 3TOTAL #### [facility] [address] [address] [address] Zonia Zhang FREE T4on 06-06-2022 Free T4 [Mass/Vol] 0.94 ng/dL Normal 0.76-1.46 [facility] Comment on above: Performed By: #### F T4 #### [facility] [address] [address] [address] Zonia Zhang TSHon 06-06-2022 TSH 1.364 uIU/mL Normal 0.358-3.[address] [facility] Comment on above: Performed By: #### T #### [facility] [address] [place] [address] Dr. Zonia ABARCA Quick Testingon 2021 Result Positive [facility] Other Quick Fluon 12-27-2021 FLUAV Ab CF (S) [Titer] Negative N [employer] Other FLUBV Ab CF (S) [Titer] Negative N [employer] Other Vital Signs Date Time Vital Sign Value Performing Clinician Facility 06-26-2025 13:08-0400 Body mass index (BMI) [Ratio] 36.2 kg/m2 Ángel Sita DO Work Phone: [facility] 06-26-2025 13:08-0400 Body weight 104.83 kg Ángel Sita DO Work Phone: [facility] 06-26-2025 13:08-0400 Diastolic blood pressure 74 mm[Hg] Ángel Sita DO Work Phone: [facility] 06-26-2025 13:08-0400 Systolic blood pressure 116 mm[Hg] Ángel Sita DO Work Phone: [facility] 06-12-2025 14:21-0400 Body mass index (BMI) [Ratio] 35.73 kg/m2 Ángel Sita DO Work Phone: [facility] 06-12-2025 14:21-0400 Body weight 103.47 kg Ángel Sita DO Work Phone: [facility] 06-12-2025 14:21-0400 Diastolic blood pressure 70 mm[Hg] Ángel Sita DO Work Phone: [facility] 06-12-2025 14:21-0400 Systolic blood pressure 120 mm[Hg] Ángel Sita DO Work Phone: [facility] 05-30-2025 09:10-0400 Body mass index (BMI) [Ratio] 35.52 kg/m2 Ángel Sita DO Work Phone: [facility] 05-30-2025 09:10-0400 Body weight 102.88 kg Ángel Sita DO Work Phone: [facility] 05-30-2025 09:10-0400 Diastolic blood pressure 78 mm[Hg] Ángel Sita DO Work Phone: [facility] 05-30-2025 09:10-0400 Systolic blood pressure 120 mm[Hg] Ángel Sita DO Work Phone: [facility] 05-01-2025 08:36-0400 Body mass index (BMI) [Ratio] 34.43 kg/m2 Deisy [place] PA Work Phone: [facility] 05-01-2025 08:36-0400 Body weight 99.7 kg Deisy [place] PA Work Phone: [facility] 05-01-2025 08:36-0400 Diastolic blood pressure 74 mm[Hg] Deisy [place] PA Work Phone: [facility] 05-01-2025 08:36-0400 Systolic blood pressure 118 mm[Hg] Deisy [place] PA Work Phone: [facility] 03-30-2025 10:28-0400 Body mass index (BMI) [Ratio] 32.89 kg/m2 Ángel Sita DO Work Phone: [facility] 03-30-2025 10:28-0400 Body weight 95.25 kg Ángel Sita DO Work Phone: [facility] 03-30-2025 10:28-0400 Diastolic blood pressure 84 mm[Hg] Ángel Sita DO Work Phone: [facility] 03-30-2025 10:28-0400 Systolic blood pressure 120 mm[Hg] Ángel Sita DO Work Phone: [facility] 03-02-2025 09:58-0400 Body mass index (BMI) [Ratio] 31.76 kg/m2 Deisy Villar PA Work Phone: [facility] 03-02-2025 09:58-0400 Body weight 91.99 kg Deisy Villar PA Work Phone: [facility] 03-02-2025 09:58-0400 Diastolic blood pressure 72 mm[Hg] Deisy Villar PA Work Phone: [facility] 03-02-2025 09:58-0400 Systolic blood pressure 120 mm[Hg] Deisy Villar PA Work Phone: [facility] 02-02-2025 09:25-0500 Body mass index (BMI) [Ratio] 30.54 kg/m2 Ángel Sita DO Work Phone: [facility] 02-02-2025 09:25-0500 Body weight 88.45 kg Ángel Sita DO Work Phone: [facility] 02-02-2025 09:25-0500 Diastolic blood pressure 70 mm[Hg] Ángel Sita DO Work Phone: [facility] 02-02-2025 09:25-0500 Systolic blood pressure 120 mm[Hg] Ángel Sita DO Work Phone: [facility] 10-18-2024 11:19-0500 Body height 170.18 cm Robles Ball DO Work Phone: [facility] 10-18-2024 11:19-0500 Body mass index (BMI) [Ratio] 29.7 kg/m2 Robles Ball DO Work Phone: [facility] 10-18-2024 11:19-0500 Body weight 86.23 kg Robles Ball DO Work Phone: [facility] 10-18-2024 11:19-0500 Diastolic blood pressure 77 mm[Hg] Robles Ball DO Work Phone: [facility] 10-18-2024 11:19-0500 Heart rate 88 /min Robles Ball DO Work Phone: [facility] 10-18-2024 11:19-0500 Respiratory rate 12 /min Robles Ball DO Work Phone: [facility] 10-18-2024 11:19-0500 Systolic blood pressure 111 mm[Hg] Robles Ball DO Work Phone: [facility] 09-13-2024 14:28-0400 Body mass index (BMI) [Ratio] 28.79 kg/m2 Ángel Sita DO Work Phone: [facility] 09-13-2024 14:28-0400 Body weight 83.37 kg Ángel Sita DO Work Phone: [facility] 09-13-2024 14:28-0400 Diastolic blood pressure 70 mm[Hg] Ángel Sita DO Work Phone: [facility] 09-13-2024 14:28-0400 Systolic blood pressure 120 mm[Hg] Ángel Sita DO Work Phone: [facility] 05-03-2024 14:40-0400 Body height 170.18 cm [facility] 05-03-2024 14:40-0400 Body mass index (BMI) [Ratio] 28.3 kg/m2 [facility] 05-03-2024 14:40-0400 Body weight 82.1 kg [facility] 05-03-2024 14:40-0400 Diastolic blood pressure 82 mm[Hg] [facility] 05-03-2024 14:40-0400 Heart rate 78 /min [facility] 05-03-2024 14:40-0400 SaO2% (BldA) [Mass fraction] 98 % [facility] 05-03-2024 14:40-0400 Systolic blood pressure 122 mm[Hg] [facility] 01-06-2024 14:20-0500 Body height 170.2 cm Deisy MUNOZ Work Phone: [facility] 01-06-2024 14:20-0500 Body mass index (BMI) [Ratio] 28.05 kg/m2 Deisy MUNOZ Work Phone: [facility] 01-06-2024 14:20-0500 Body weight 81.25 kg Deisy [place] ALEXANDER Work Phone: [facility] 01-06-2024 14:20-0500 Diastolic blood pressure 70 mm[Hg] Deisy Adithya MUNOZ Work Phone: [facility] 01-06-2024 14:20-0500 Systolic blood pressure 120 mm[Hg] Deisy Gonzalezashleigh MUNOZ Work Phone: [facility] 10-02-2023 10:00-0400 Body height 170.18 cm Robles Ball Other [facility] Other 10-02-2023 10:00-0400 Body mass index (BMI) [Ratio] 29.38 kg/m2 Robles Ball Other [facility] Other 10-02-2023 10:00-0400 Body weight 85.1 kg Robles Ball Other [facility] Other 10-02-2023 10:00-0400 Diastolic blood pressure 83 mm[Hg] Robles Ball Other [facility] Other 10-02-2023 10:00-0400 Respiratory rate 12 /min Robles Ball Other [facility] Other 10-02-2023 10:00-0400 Systolic blood pressure 131 mm[Hg] Robles Ball Other [facility] Other 01-22-2023 10:30-0500 Body height 170.18 cm Robles Ball Other [facility] Other 01-22-2023 10:30-0500 Body mass index (BMI) [Ratio] 29.91 kg/m2 Robles Ball Other [facility] Other 01-22-2023 10:30-0500 Body weight 86.64 kg Robles Ball Other [facility] Other 01-22-2023 10:30-0500 Diastolic blood pressure 72 mm[Hg] Robles Ball Other [facility] Other 01-22-2023 10:30-0500 Respiratory rate 16 /min Robles Ball Other [facility] Other 01-22-2023 10:30-0500 Systolic blood pressure 122 mm[Hg] Robles Ball Other [facility] Other 09-26-2022 16:10-0400 Body height 170.18 cm Kiya Schaffer Other [facility] Other 09-26-2022 16:10-0400 Body mass index (BMI) [Ratio] 29.29 kg/m2 Kiya Schaffer Other [facility] Other 09-26-2022 16:10-0400 Body temperature 98.8 [degF] Kiya Schaffer Other [facility] Other 09-26-2022 16:10-0400 Body weight 84.82 kg Kiya Schaffer Other [facility] Other 09-26-2022 16:10-0400 Diastolic blood pressure 73 mm[Hg] Kiya Schaffer Other [facility] Other 09-26-2022 16:10-0400 Respiratory rate 18 /min Kiya Schaffer Other [facility] Other 09-26-2022 16:10-0400 SaO2% (BldA) [Mass fraction] 97 % Kiya Schaffer Other [facility] Other 09-26-2022 16:10-0400 Systolic blood pressure 125 mm[Hg] Kiya Schaffer Other [facility] Other 12-27-2021 10:15-0500 Body height 170.18 cm Elsi Mayer Other [facility] Other 12-27-2021 10:15-0500 Body mass index (BMI) [Ratio] 28.19 kg/m2 Elsi Mayer Other [facility] Other 12-27-2021 10:15-0500 Body temperature 100.3 [degF] Elsi Mayer Other [facility] Other 12-27-2021 10:15-0500 Body weight 81.65 kg Elsi Mayer Other [facility] Other 12-27-2021 10:15-0500 Respiratory rate 18 /min Elsi Mayer Other [facility] Other 12-27-2021 10:15-0500 SaO2% (BldA) [Mass fraction] 98 % Elsi Mayer Other [facility] Other Encounters Encounter Date Encounter Type Care Provider Facility Start: 07-01-2025 End: 07-01-2025 Clinisync Result Encounter Ángel Sita DO Work Phone: [facility] Unsolicited Start: 07-01-2025 End: 07-01-2025 Clinisync Result Encounter Ángel Sita DO Work Phone: [facility] Unsolicited Start: 06-26-2025 End: 06-26-2025 flow sheet Ángel Sita DO Work Phone: [facility] Comment on above: Third trimester preg lai ([facility]); 33 weeks gestation of ([facility]) Start: 06-26-2025 End: 06-26-2025 ambulatory ÁNGEL SITA Not Available Start: 06-26-2025 End: 06-26-2025 ambulatory DEISY VILLAR Not Available Start: 06-24-2025 End: 06-24-2025 Clinisync [...] in third trimester, single or unspecified fetus ([facility]) (Primary Dx); 31 weeks gestation of ([facility]); Third trimester ([facility]); History of miscarriage; Multigravida of advanced maternal age in third trimester ([facility]) Start: 06-12-2025 End: 06-12-2025 ambulatory ÁNGEL SITA [...] Comment on above: Third trimester preg lai ([facility]); 29 weeks gestation of ([facility]); History of miscarriage; Multigravida of advanced maternal age in third trimester ([facility]) Start: 05-30-2025 End: 05-30-2025 ambulatory [...] 05-01-2025 flow sheet Deisy MUNOZ Work Phone: [facility] Comment on above: size inconsist [...] Bamboo flowsheet Ángel Sita DO Work Phone: [facility] Start: 03-30-2025 End: 03-30-2025 Bamboo flowsheet Ángel Sita DO Work Phone: [facility] Start: 03-30-2025 End: 03-30-2025 flow sheet Ángel Sita DO Work Phone: [facility] Comment on above: Second trimester [...] Clinisync Result Encounter Deisy MUNOZ Work Phone: [facility] External Department Unsolicited Start: 03-02-2025 End: 03-03-2025 External Result Encounter Deisy MUNOZ Work Phone: [facility] External Department Unsolicited Start: 03-02-2025 End: 03-02-2025 Patient encounter procedure Deisy MUNOZ Work Phone: [facility] Start: 03-02-2025 End: 03-02-2025 Periodic preventive med est patient 18-39 yrs Deisy MUNOZ Work Phone: [facility] Comment on above: 17 weeks gestation o f ; Second trimester ; Well woman exam with routine gynecological exam; Screening, , for anatomic survey; Exposure to STD; Vaginal discharge; Heartburn; Allergy, sequela Start: 03-02-2025 End: 03-02-2025 ambulatory DEISY VILLAR Not Available Start: 02-02-2025 End: 02-02-2025 Bamboo flowsheet Ángel Sita DO Work Phone: [facility] Start: 02-02-2025 End: 02-02-2025 Bamboo [...] 10-18-2024 ambulatory Robles Ball DO Work Phone: [facility] Work Phone: Start: 10-18-2024 End: 10-18-2024 Encounter for general adult medical examination without abnormal findings Robles Ball DO Work Phone: [facility] Start: 10-18-2024 End: 10-18-2024 Patient encounter procedure Robles Ball DO Work Phone: [facility] Work Phone: Start: 10-16-2024 Patient encounter status Jermaine min Ball DO Work Phone: [facility] Start: 10-14-2024 Non-patient / Non-visit Benjam in Ball DO Work Phone: [facility] Work Phone: Start: 09-22-2024 End: 09-22-2024 Departed Referred DO Robles Charles Work Phone: [facility] Start: 09-22-2024 End: 09-22-2024 ambulatory DO Robles Charles Work Phone: [facility] Work Phone: Start: 09-13-2024 End: 09-13-2024 [...] Not Available Start: 08-29-2024 End: 08-29-2024 ambulatory [facility] Work Phone: Start: 08-29-2024 End: 08-29-2024 Patient encounter procedure [facility] Work Phone: Start: 05-03-2024 End: 05-03-2024 ambulatory [facility] Work Phone: Start: 05-03-2024 End: 05-03-2024 Patient encounter procedure [facility] Work Phone: Start: 2024 End: 2024 ambulatory DO Robles Charles Work Phone: [facility] Work Phone: Start: 2024 End: 2024 Patient encounter procedure DO Robles Charles Work Phone: [facility] Work Phone: Start: 01-07-2024 End: 01-07-2024 Patient encounter procedure DO Robles Charles Work Phone: [facility] [place] Work Phone: Start: 01-07-2024 End: 01-07-2024 ambulatory DO Robles Charles Work Phone: [facility] Work Phone: Start: 01-06-2024 End: 01-06-2024 Office outpatient visit 15 minutes Deisy MUNOZ Work Phone: [facility] Comment on above: Encounter for weight management; Hormone disorder; 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 Start: 10-02-2023 End: 10-02-2023 ambulatory Robles Charles Other [facility] Other Start: 10-02-2023 Encounter for genera l adult medical examination without abnormal findings Robles Charles [facility] Start: 10-02-2023 Periodic preventive med est patient 18-39 yrs Robles Charles [facility] Start: 09-17-2023 End: 09-17-2023 ambulatory MD Liz Conteh Work Phone: [facility] Work Phone: Start: 09-17-2023 End: 09-17-2023 Departed Referred MD Liz Conteh Work Phone: [facility]Employee Benefit Screening Start: 01-22-2023 End: 01-22-2023 ambulatory Robles Charles Other [facility] Other Start: 01-22-2023 Office outpatient vi sit 15 minutes Robles Charles [facility] Start: 01-12-2023 End: 01-12-2023 ambulatory Robles Charles Other [facility] Other Start: 01-12-2023 Telephone encounter Robles Charles [facility] Start: 12-24-2022 End: 12-24-2022 ambulatory Robles Charles Other [facility] Other Start: 12-24-2022 Office outpatient vi sit 15 minutes Robles Charles [facility] Start: 09-30-2022 End: 09-30-2022 ambulatory Kiya Schaffer Other [facility] Other Start: 09-30-2022 Telephone encounter Kiya Schaffer [facility] Start: 09-26-2022 End: 09-26-2022 Departed Referred MD Liz Conteh Work Phone: [facility] [place] Start: 09-26-2022 End: 09-26-2022 ambulatory MD Liz Conteh Work Phone: [facility] Work Phone: Start: 09-26-2022 Office outpatient vi sit 15 minutes Kiya Schaffer [facility] Start: 09-25-2022 ([facility] C Vac) [facility] Co vid Vaccine Subha Dillon [facility] Start: 09-25-2022 End: 09-25-2022 ambulatory MD Liz Conteh Work Phone: [facility] Work Phone: Start: 09-25-2022 End: 09-25-2022 Patient encounter procedure MD Liz Conteh Work Phone: [facility]Covid Vaccine Off Site Start: 08-25-2022 End: 08-25-[address] ÁNGEL BUCKNER Facility: Start: 08-07-2022 End: 08-07-2022 Departed Referred MD Liz Conteh Work Phone: [facility]Employee Benefit Screening Start: 06-06-2022 End: 06-07-[address] ROBLES CHARLES Facility:[facility] Start: 01-01-2022 End: 01-01-2022 ambulatory Elsi Leyla Other [facility] Other Start: 01-01-2022 Office outpatient vi sit 5 minutes Elsi Leyla [facility] Start: 12-27-2021 End: 12-27-2021 ambulatory Elsi Hamond Other [facility] Other Start: 12-27-2021 Office outpatient vi sit 15 minutes Elsi Leyla [facility] Start: 08-23-2021 ([facility] C Vac) [facility] Co vid Vaccine Subha Dillon [facility] Procedures Date Procedure Procedure Detail Performing Clinician Start: 07-01-2025 US OB BPP W NON-STRESS Ángel Sita DO Work Phone: Start: 06-26-2025 Urnls dip stick/tabl et rgnt [...] Start: 05-11-2025 US OB GROWTH Edson fu [employer] Work Phone: Start: 04-18-2025 ALL CBC WITH [...] 09-13-2029 Screening for malignant neoplasm of cervix [facility] Start: 03-02-2028 Screening for malignant neoplasm of cervix Pap Smear [facility] Start: 09-19-2025 End: 09-19-2025 Patient encounter procedure [facility] Start: 07-31-2025 Influenza vaccination [facility] Start: 07-24-2025 End: 07-24-2025 Patient encounter procedure 07/24/2025 11:20 AM EDT Routine [facility] [address] [address] [place] [phone] Ángel Buckner, [address] [place] [address] [facility] Start: 07-17-2025 End: 07-17-2025 Patient encounter procedure 07/17/2025 2:50 PM EDT Routine [facility] [address] [facility] [facility] [address] [place] [phone] Ángel Buckner, [address] [place] [address] [facility] Start: 07-10-2025 End: 07-10-2025 [...] in third trimester, single or unspecified fetus ([facility]) Expected: 06/12/2025, Expires: 10/13/2025 [facility] Work Phone: Comment on above: Expected: 06/12/2025, Expires: Start: 05-30-2025 End: 11-30-2025 US biophysical profile w non stress test US biophysical profile w non stress test Imaging Routine History of miscarriage Multigravida of advanced maternal age in third trimester ([facility]) Expected: 05/30/2025 (Approximate), Expires: 11/30/2025 [facility] [...] EDT Ancillary Procedure [facility] [address] [facility] [place] [phone] [facility] Start: 04-03-2025 End: 04-03-2025 Patient encounter procedure 04/03/2025 9:50 AM EDT Routine [facility] [address] [place] [phone] Ángel Buckner, [address] [place] [address] [facility] Start: 04-03-2025 End: 04-03-2025 Professional / ancillary services management 04/03/2025 8:00 AM EDT Ancillary Procedure [facility] [address] [place] [address] [facility] Start: 03-30-2025 End: [...] mellitus screening Expected: 03/30/2025 (Approximate), Expires: 03/30/2026 [facility] Comment on above: Expected: 03/30/2025 (Approximate), Expi res: 03/30/2026 Start: 03-30-2025 End: 06-30-2025 US for US OB limited 1+ fetuses Imaging Routine Encounter for follow-up ultrasound of anatomy Expected: 03/30/2025, Expires: 06/30/2025 [facility] Comment on above: Expected: 03/30/2025, Expires: Start: 03-30-2025 End: 03-30-2025 Patient encounter procedure [facility] Comment on above: Arrived Start: 03-02-2025 End: 04-01-2025 Alpha fetoprotein, maternal Alpha fetoprotein, maternal Lab Routine 17 weeks gestation of Second trimester Expected: 03/02/2025 (Approximate), Expires: 04/01/2025 [facility] Comment on above: Expected: 03/02/2025 (Approximate), Expi res: 04/01/2025 Start: 03-02-2025 End: 03-02-2026 US for US OB 14+ weeks anatomy scan Imaging Routine Screening, , for anatomic survey Expected: 03/02/2025, Expires: 03/02/2026 [facility] Comment on above: Expected: 03/02/2025, Expires: Start: 03-02-2025 End: 03-02-2025 Patient encounter procedure 03/02/2025 9:30 AM EDT Routine [facility] [address] [facility] [place] [phone] Deisy Villar PA [address] [place] [address] Arrived [facility] Comment on above: Arrived Start: 02-02-2025 End: 02-02-2025 Patient encounter procedure [facility] Comment on above: Arrived Start: 01-05-2025 End: 01-05-2025 ambulatory 01/05/2025 1:30 PM EST Initial [facility] [address] [facility] [place] [address] [facility] Start: 01-05-2025 End: 01-05-2025 Professional / ancillary services management 01/05/2025 1:00 PM EST Ancillary Procedure [facility] [address] [place] [address] [facility] Start: 09-13-2024 End: 09-13-2024 Patient encounter procedure [facility] Comment on above: Arrived Start: 07-31-2024 Influenza vaccination Influenza Vaccine (#1) [facility] Start: 02-03-2024 End: 02-03-2024 Patient encounter procedure 02/03/2024 1:50 PM EST Office Visit [facility] [address] [facility] [place] [address] Deisy Villar PA [address] [place] [address] [facility] Start: 01-07-2024 Dehydroepiandrosterone sulfate level [facility] Start: 01-07-2024 Sex hormone binding globulin measurement [facility] Start: 01-07-2024 T3 reverse measurement [facility] Start: 01-07-2024 Thyroxine measurement [facility] Start: 01-07-2024 [facility] Start: 01-06-2024 End: 01-06-2025 Anti-thyroglobulin antibody Anti-thyroglobulin antibody Lab Routine Hormone disorder Expected: 01/06/2024 (Approximate), Expires: 01/06/2025 [facility] Comment on above: Expected: 01/06/2024 (Approximate), [...] Hormone disorder Expected: 01/06/2024 (Approximate), Expires: 01/06/2025 [facility] Comment on above: Expected: 01/06/2024 (Approximate), Expi res: 01/06/2025 Start: 01-06-2024 End: 01-06-2025 Insulin, total Insulin, total Lab Routine Hormone disorder Expected: 01/06/2024 (Approximate), Expires: 01/06/2025 [facility] Comment on above: Expected: 01/06/2024 (Approximate), Expi res: 01/06/2025 Start: 01-06-2024 End: 01-06-2025 Serotonin serum Serotonin serum Lab Routine Hormone disorder Expected: 01/06/2024 (Approximate), Expires: 01/06/2025 [facility] Comment on above: Expected: 01/06/2024 (Approximate), Expi res: 01/06/2025 Start: 01-06-2024 End: 01-06-2025 Thyroglobulin Thyroglobulin Lab Routine Hormone disorder Expected: 01/06/2024 (Approximate), Expires: 01/06/2025 [facility] Comment on above: Expected: 01/06/2024 (Approximate), Expi res: 01/06/2025 Start: 01-06-2024 End: 01-06-2025 Thyrotropin [Units/volume] in Serum or Plasma [facility] Comment on above: Ordered: 01/06/2024 Expected: 01/06/2024 (Approximate), Expires: 01/06/2025 Start: 09-17-2023 [facility] Start: 08-07-2022 [facility] Work Phone: Calcitriol [Mass/vol ume] in Serum or Plasma [facility] CHLAMYDIA TRACHOMATI S (GENITO/STI) CHLAMYDIA TRACHOMATIS (GENITO/STI) Lab Routine Exposure to STD Ordered: 03/02/2025 [facility] Comment on above: Ordered: 03/02/2025 Cytology Cervical or vaginal smear or scraping study Pap Smear Pathology and Cytology Routine Well woman exam with routine gynecological exam Ordered: 09/13/2024 [facility] Work Phone: Comment on above: Ordered: 09/13/2024 Cytology Cervical or vaginal smear or scraping study Pap Smear Pathology and Cytology Routine Well woman exam with routine gynecological exam Ordered: 03/02/2025 [facility] Comment on above: Ordered: 03/02/2025 DHEA-sulfate DHEA-sulfate Lab Routine Hormone disorder Ordered: 01/06/2024 [facility] Comment on above: Ordered: 01/06/2024 Estradiol Estradiol Lab Ro utine Hormone disorder Ordered: 01/06/2024 [facility] Work Phone: Comment on above: Ordered: 01/06/2024 Estradiol (E2) [Mass /volume] in Serum or Plasma [facility] Estrone Estrone Lab Rout ine Hormone disorder Ordered: 01/06/2024 [facility] Comment on above: Ordered: 01/06/2024 Estrone (E1) [Mass/v olume] in Serum or Plasma [facility] Ferritin [Mass/volum e] in Serum or Plasma Ferritin Lab Routine Hormone disorder Ordered: 01/06/2024 [facility] Comment on above: Ordered: 01/06/2024 Hemoglobin A1c measurement Hemog lobin A1c Lab Routine Hormone disorder Ordered: 01/06/2024 [facility] Comment on above: Ordered: 01/06/2024 Human papilloma viru s DNA [Presence] in Unspecified specimen by Probe with amplification HPV DNA probe, amplified Microbiology Routine Well woman exam with routine gynecological exam Ordered: 09/13/2024 [facility] Comment on above: Ordered: 09/13/2024 Human papilloma viru s DNA [Presence] in Unspecified specimen by Probe with amplification HPV DNA probe, amplified Microbiology Routine Well woman exam with routine gynecological exam Ordered: 03/02/2025 [facility] Comment on above: Ordered: 03/02/2025 Insulin [Units/volum e] in Serum or Plasma [facility] Neisseria gonorrhoea e DNA [Presence] in Unspecified specimen by ROB with probe detection Neisseria gonorrhea DNA probe, direct Lab Routine Exposure to STD Ordered: 03/02/2025 [facility] Comment on above: Ordered: 03/02/2025 Progesterone Progesterone Lab Routine Hormone disorder Ordered: 01/06/2024 [facility] Comment on above: Ordered: 01/06/2024 Progesterone [Mass/v olume] in Serum or Plasma [facility] Serotonin [Mass/volu me] in Plasma [facility] Sex hormone binding globulin Sex hormone binding globulin Lab Routine Hormone disorder Ordered: 01/06/2024 [facility] Comment on above: Ordered: 01/06/2024 SURESWAB(R) ADVANCED VAGINITIS PLUS, TMA SURESWAB(R) ADVANCED VAGINITIS PLUS, TMA Pathology and Cytology Routine Vaginal discharge Ordered: 03/02/2025 [facility] Work Phone: Comment on above: Ordered: 03/02/2025 T3, reverse T3, reverse Lab Routine Hormone disorder Ordered: 01/06/2024 [facility] Comment on above: Ordered: 01/06/2024 Testosterone Free [Mass/volume] in Serum or Plasma [facility] TESTOSTERONE, FREE TESTOSTERONE, FREE Lab Routine Hormone disorder Ordered: 01/06/2024 [facility] Comment on above: Ordered: 01/06/2024 Testosterone, free, total Testos terone, free, total Lab Routine Hormone disorder Ordered: 01/06/2024 [facility] Comment on above: Ordered: 01/06/2024 Throat culture Throat Culture [facility] Thyroglobulin Ab [Units/volume] in Serum or Plasma [facility] Thyroid peroxidase antibody Thyr oid peroxidase antibody Lab Routine Hormone disorder Ordered: 01/06/2024 [facility] Comment on above: Ordered: 01/06/2024 Thyroperoxidase Ab [Units/volume] in Serum or Plasma [facility] Thyroxine (T4) free [Mass/volume] in Serum or Plasma T4, free Lab Routine Hormone disorder Ordered: 01/06/2024 [facility] Comment on above: Ordered: 01/06/2024 Triiodothyronine (T3 ) Free [Mass/volume] in Serum or Plasma T3, free Lab Routine Hormone disorder Ordered: 01/06/2024 [facility] Comment on above: Ordered: 01/06/2024 Vitamin D 1,25 dihydroxy Vitamin D 1,25 dihydroxy Lab Routine Hormone disorder Ordered: 01/06/2024 [facility] Comment on above: Ordered: 01/06/2024 [facility] Work Phone: Immunizations Immunization Date Immunization Notes Care Provider Naeem pablo 09-15-2023 influenza, injectabl e, quadrivalent, preservative free [facility] 09-15-2023 influenza virus vaccine, unspecified formulation Ángel Buckner DO Work Phone: [facility] 09-25-2022 COVID-19 Moderna (BIvalent) Kiya Schaffer Other [facility] 08-23-2021 COVID-19 Pfizer Subha Fitt Other [facility] 07-31-2021 COVID-19 Pfizer Subha Fitt Other [facility] 05-19-2021 diphtheria, tetanus toxoids and pertussis vaccine [facility] Payers Date Payer Category Payer Self-pay [id number] 2022 Private Health Insurance [employer] [id number] 2022 Unknown [employer] [id number] 2022-Present [address] [place] [address] [id number] 1990 Unknown [id number] 2.16.840.1.598975.3.579.2 .593 1990 Unknown [id number] 2.16.840.1.149682.3.579.2 .593 1990 Unknown [id number] 2.16.840.1.414992.3.579.2 .9 1990 Unknown [id number] 2.16.840.1.703517.3.579.2 .1258 1990 Unknown [id number] 2.16.840.1.319264.3.579.2 .9 1990 Unknown [id number] 2.16.840.1.715582.3.579.2 .1259 1990 Unknown [id number] 2.16.840.1.592629.3.579.2 .1259 1990 Unknown [id number] 2.16.840.1.796246.3.579.2 .125 1990 Unknown [id number] 2.16.840.1.313128.3.579.2 .9 1990 Unknown [id number] 2.16.840.1.003257.3.579.2 .9 1990 Unknown [id number] 2.16.840.1.575669.3.579.2 .1259 1990 Unknown [id number] 2.16.840.1.503791.3.579.2 .1259 1990 Unknown [id number] 2.16.840.1.973489.3.579.2 .1259 1990 Unknown [id number] 2.16.840.1.280087.3.579.2 .1259 1959 Unknown [id number] 2.16.840.1.353504.19 Unknown [id number] 2.16.840.1.650148.3.579.2 .531 Unknown [id number] 2.16.840.1.230095.3.579.2 .531 Worker's Compensation [facility] C t [place] [id number] Social History Date Type Detail Facility Start: 10-13-2023 End: 09-13-2024 Sex Assigned At [facility] Start: 1990 Sex Assigned At Female [facility] Start: 08-13-2023 End: 05-03-2024 Tobacco smoking status NHIS Never smoked tobacco [facility] Start: 01-06-2024 End: 06-12-2025 Alcohol intake Current drinker of alcohol (finding) [facility] Start: 10-13-2023 End: 09-13-2024 History of Social function [facility] How often to you hav e [...] [facility] Start: 10-18-2024 Sex Female (finding) [facility] Start: 11-16-2024 [facility] Clinical Notes 08-23-2021 to 06-26-2025 Mary Lou Kearney LPN - 06/26/2025 1:10 PM ALEXANDER Abbott - 06/12/2025 2:10 PM Barbara Charlton LPN - 05/30/2025 8:50 AM Margaret Dewitt NP - 05/01/2025 8:30 AM EDT [...] nursing note reviewed. Exam conducted with a repair coil winder present. Vitals: Estimated body mass index is 36.2 kg/m as calculated from the following: Height as of 01/06/24: 5' 7 . Weight as of this encounter: 231 lb 1.9 oz. BP: 116/74 Patient's last menstrual period was 11/02/2024. ASSESSMENT & PLAN (Z34.93) Third trimester ([facility]) Plan: POCT urinalysis dipstick manually resulted (Z3A.33) 33 weeks gestation of ([facility]) Plan: POCT urinalysis dipstick manually resulted Patient presents today for a routine obstetrics appointment. Patient is currently 33w5d with a Estimated Date of Delivery: 08/09/25. Patient to return to clinic in 2 weeks for GBS. Documented by Mary Lou Kearney LPN on behalf of: Ángel Buckner DO documented in this encounter [facility] 06-12-2025 History of Presen t illness Narrative [...] trimester, single or unspecified fetus ([facility]) O36.63X0 US OB follow up transabdominal approach 2. 31 weeks gestation of ([facility]) Z3A.31 POCT urinalysis dipstick manually resulted 3. Third trimester ([facility]) Z34.93 POCT urinalysis dipstick manually resulted 4. History of miscarriage Z87.59 5. Multigravida of advanced maternal age in third trimester ([facility]) O09.523 Return OB: Patient presents [...] Buckner DO documented in this encounter [facility] 05-30-2025 History of Presen t illness Narrative [...] nursing note reviewed. Exam conducted with a repair coil winder present. Vitals: Estimated body mass index is 35.52 kg/m as calculated from the following: Height as of 01/06/24: 5' 7 . Weight as of this encounter: 226 lb 12.8 oz. BP: 120/78 Patient's last menstrual period was 11/02/2024. ASSESSMENT & PLAN ICD-10-CM 1. Third trimester ([facility]) Z34.93 POCT urinalysis dipstick manually resulted 2. 29 weeks gestation of ([facility]) Z3A.29 POCT urinalysis dipstick manually resulted 3. History of miscarriage Z87.59 4. Multigravida of advanced maternal age in third trimester ([facility]) O09.523 Return OB: Patient presents today for [...] by Renu Charlton LPN on behalf of: DO Gerardo Hansenally signed by Renu Charlton LPN at 06/01/2025 8:56 AM EDT documented in this encounter [facility] 05-01-2025 History of Presen t illness Narrative [...] nursing note reviewed. Exam conducted with a repair coil winder present. Vitals: Estimated body mass index is [...] Dewitt NP documented in this encounter [facility] 03-30-2025 History of Presen t illness Narrative [...] nursing note reviewed. Exam conducted with a repair coil winder present. Vitals: Estimated body mass index is [...] Buckner DO documented in this encounter [facility] 03-02-2025 History of Presen t illness Narrative [...] nursing note reviewed. Exam conducted with a repair coil winder present. Vitals: Estimated body mass index is [...] obtained without difficulty and patient was given [facility] order to have obtained. Orders Placed [...] ALEXANDER Gramajo documented in this encounter [facility] 02-02-2025 History of Presen t illness Narrative [...] Buckner DO documented in this encounter [facility] 09-13-2024 History of Presen t illness Narrative Reason for Appointment: Patient ID: Michelet Amy is a 34 y.o. female who presents [...] nursing note reviewed. Exam conducted with a repair coil winder present. Vitals: Estimated body mass index is [...] Buckner DO documented in this encounter [facility] 01-06-2024 History of Presen t illness Narrative [...] Diagnosis Date Fatigue GARTH (generalized anxiety disorder) ([facility]) Hyperlipidemia ([facility]) Paronychia, finger Family History Problem [...] ALEXANDER Gramajo documented in this encounter [facility] 10-02-2023 Evaluation note Encounter Date Diagnosis Assessment [...] prior to bedtime. Weight loss. Pepcid PRN [facility] Other 2023 Evaluation note* Encounter Date Diagnosis Assessment Notes Treatment Notes Treatment Clinical Notes Dec, Nasal turbinate hypertrophy (ICD-10 - J34.3) FLonase, saline NS, Sudafed and avoid use of Afin. Refer to ENT. Dec, Nonallergic vasomotor rhinitis (ICD-10 - J30.0) Prednisone tapered over 8 days. Claritin as needed. [facility] Other 02-13-2023 Evaluation note* Encounter Date Diagnosis Assessment Notes Treatment Notes Treatment Clinical Notes Dec, Acute non-recurrent maxillary sinusitis (ICD-10 - J01.00) [facility] Other 01-25-2023 Evaluation note* Encounter Date Diagnosis Assessment Notes Treatment Notes Treatment Clinical Notes Nov, Acute non-recurrent maxillary sinusitis (ICD-10 - J01.00) Instructed to use Robitussin or Mucinex for cough, saline or Flonase NS for congestion, Tylenol for pain and fever. [facility] Other 10-28-2022 Evaluation note* Encounter Date Diagnosis [...] (suspected) exposure to covid-19 (ICD-10 - Z20.822) [facility] Other 10-27-2022 Evaluation note* Encounter Date Diagnosis Assessment Notes Treatment Notes Treatment Clinical Notes Aug, Encounter for immunization (ICD-10 - Z23) Patient presents today for COVID-19 vaccination booster. Patient pre-vaccination form answers reviewed. Patient denies current illness or allergic reaction to any component of a COVD-19 vaccine. Patient provided with copy of current EUA. [facility] Other 02-02-2022 Evaluation note* Encounter Date Diagnosis [...] Patient care instructions given in writting by [facility] document. Additional time spent conducting pre-visit phone call, screening for symptoms, instructions on social distancing, application and removal of PPE, and cleaning of examination room, equipment and supplies was preformed. Patient education given for testing methodology and results. Patient care instructions given in writting by [facility] document. [facility] Other 01-28-2022 Evaluation note* Encounter Date Diagnosis [...] Patient care instructions given in writting by [facility] document. [facility] Other 09-24-2021 Evaluation note* Encounter Date Diagnosis Assessment Notes Treatment Notes Treatment Clinical Notes Jul, Encounter for immunization (ICD-10 - Z23) Patient presents for COVID-19 vaccination #2. Pre-screening form answers evaluated with patient. Patient denies current illness or allergic reaction to component of COVID-19 vaccine. Patient provided with current copy of EUA. [facility] Other Evaluation noteNo assessment information available [facility] Work Phone: Evaluation noteNo [employer] Other Evaluation note* Diagnosis Encounter for weight management Hormone disorder Unspecified endocrine disorder 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 [facility] Diagnosis Well woman exam with routine gynecological exam Routine gynecological examination [facility] Diagnosis Onset Date Resolution Status Admit Date Hypercholesteremia acute Novemb er 2023 11:13am Wellness examination acute Nove mber 2023 11:13am [facility] Work Phone: Evaluation note* Diagnosis 13 [...] ultrasound of anatomy documented in this encounter [facility]* Diagnosis size inconsistent with dates- Primary Second trimester state, incidental 25 weeks gestation of documented in this encounter [facility] note* Diagnosis Third trimester ([facility]) state, incidental 29 weeks gestation of ([facility]) History of miscarriage Personal history of other genital system and obstetric disorders Multigravida of advanced maternal age in third trimester ([facility]) documented in this encounter [facility] HealthcareEvaluation note* Diagnosis Excessive growth affecting management of in third trimester, single or unspecified fetus ([facility])- Primary 31 weeks gestation of ([facility]) Third trimester ([facility]) state, incidental History of miscarriage Personal history of other genital system and obstetric disorders Multigravida of advanced maternal age in third trimester ([facility]) documented in this encounter [facility] HealthcareEvaluation note* Diagnosis Third trimester ([facility]) state, incidental 33 weeks gestation of ([facility]) documented in this encounter [facility] HealthcareHistory general Narrative - Reported* Type Description Date Medical History Child X2 Natural Surgical History No know Surgical history Hospitalization History see above [facility] Other History general Narrative - Reported* Type Description Date Medical History Child X2 Natural Surgical History No Surgical history information Hospitalization History see above [facility] Other History general Narrative - Reported* Type Description Date Medical History Child X2 Natural Medical History Body mass index (BMI) of 25.0 to 29.9 Medical History Fatigue Medical History Hyperlipidemia, group A Medical History GARTH (generalized anxiety disorde r) Surgical History No know Surgical history Hospitalization History No know Hospitalization history [facility] Other Chief Complaint and Reason for Visit [...] turbinate hype rtrophy (J34.3) Referral Organization [facility] Nela Maldonado karan Referring Provider First Name Robles Referring Provider Last Name Nela Referring Provider Specialty Internal Me dicine Referred Organization [facility] Referred Provider Robles Hernandez Referred Address ,[place], [place],[address] Referred Provider Specialty Otolaryngolo gy Referral Priority Routine Referral Appointment Date 2023-02-04 General Notes Rosangela Cruz 09:25:33 AM >received today, notes locked, insurance card attached, referral faxed Rosangela Cruz 01/29/2023 12:42:25 PM >Shannan at Dr. Rodriges office requested referral be faxed again to [phone]. done! Rosangela Cruz 02/05/2023 02:23:23 PM >notes [...] Primary Care Provider Active Delano Francis DO PSYCHIATRIC Attending Provider Active Team Status: Active Member [...] January 07, 2024 End: January 07, 2024 Pillow Filler Relationship Specialty Start Date End Date Robles Charles MD [address] [place] [id number] PCP - General Internal Medicine 07/30/23 Team [...] August 29, 2024 End: August 29, 2024 Pillow Filler Relationship Specialty [place] [address] [place] [phone] PCP - General Internal Medicine 07/30/23 Deisy Villar PA [address] [place] [address] [place] [address] PCP - Medical [employer] 11/30/23 11/29/99 Pillow Filler Relationship Specialty Start Date End Date Robles Charles MD [address] [facility] [place] [phone] PCP - General Internal Medicine 07/30/23 Deisy Villar PA [address] [place] [address] [place] [address] PCP - Medical [employer] 11/30/23 11/29/99 Pillow Filler Relationship Specialty Start Date End Date Robles Charles MD [address] [facility] [place] [phone] PCP - General Internal Medicine 07/30/23 Deisy Villar PA [address] [place] [address] [place] [address] PCP - Medical [employer] 11/30/23 11/29/99 Team Status: Inactive Member Role Status Dates Robles Charles DO Primary Care Provider Active Start: September 22, 2024 End: September 22, 2024 Delano Francis - PSYCHIATRIC , DO [facility] Attending Provider Active Start: September 22, 2024 End: September 22, 2024 Team Status: Active Member Role Status Dates Robles Charles DO Primary Care Provide r, Attending Provider Active Start: October 14, 2024 Team Status: Inactive Member Role Status Dates Robles Charles DO Primary Care Provide r, Attending Provider Active Start: October 18, 2024 End: October 18, 2024 Pillow Filler Relationship Specialty Start Date End Date Robles Charles MD [address] [facility] [place] [phone] PCP - General Internal Medicine 07/30/23 Deisy Villar PA [address] [place] [address] [place] [address] PCP - Medical [employer] 11/30/23 11/29/99 Pillow Filler Relationship Specialty Start Date End Date Robles Charles MD [address] [facility] [place] [phone] PCP - General Internal Medicine 07/30/23 Deisy Villar PA [address] [place] [address] [place] [address] PCP - Medical [employer] 11/30/23 11/29/99 Pillow Filler Relationship Specialty Start Date End Date Robles Charles MD [address] [facility] [place] [phone] PCP - General Internal Medicine 07/30/23 Deisy Villar PA [address] [place] [address] [place] [address] PCP - Medical [employer] 11/30/23 11/29/99 Pillow Filler Relationship Specialty Start Date End Date Robles Charles MD [address] [facility] [place] [phone] PCP - General Internal Medicine 07/30/23 Deisy Villar PA [address] [place] [address] [place] [address] PCP - Medical [employer] 11/30/23 11/29/99 Pillow Filler Relationship Specialty Start Date End Date Robles Charles MD PCP - General Internal Medicine 07/30/23 Deisy Villar PA [address] [place] [address] PCP - Medical [employer] 11/30/23 11/29/99 Pillow Filler Relationship Specialty Start Date End Date Robles Charles DO PCP - General Internal Medicine 07/30/23 Deisy Villar PA [address] [place] [address] [place] [address] PCP - Medical [employer] 11/30/23 11/29/99 Pillow Filler Relationship Specialty Start Date End Date Robles Charles DO [address] [facility] [place] [phone] PCP - General Internal Medicine 07/30/23 Deisy Villar PA [address] [place] [address] [place] [address] PCP - Medical [employer] 11/30/23 11/29/99 Pillow Filler Relationship Specialty Start Date End Date Robles Charles DO [address] [facility] [place] [phone] PCP - General Internal Medicine 07/30/23 Deisy Villar PA [address] [place] [address] [place] [address] PCP - Medical [employer] 11/30/23 11/29/99 Pillow Filler Relationship Specialty Start Date End Date Robles Charles DO [address] [facility] [place] [phone] PCP - General Internal Medicine 07/30/23 Deisy Villar PA [address] [place], [place] [address]justus Ram[place], [place] [phone] PCP - Medical [employer] 11/30/23 11/29/99 Pillow Filler Relationship Specialty Start Date End Date Robles Charles DO [address] [facility] [place] [phone] PCP - General Internal Medicine 07/30/23 Deisy Villar PA [address], [place] [phone] PCP - Medical [employer] 11/30/23 11/29/99 Pillow Filler Relationship Specialty Start Date End Date Robles Charles DO [address] [place] [phone] PCP - General Internal Medicine 07/30/23 Deisy Villar PA [facility] Radha Ramachandran, [facility] PCP - Medical [employer] 11/30/23 11/29/99 Pillow Filler Relationship Specialty Start Date End Date Robles Charles DO [address] [facility] [place] [phone] PCP - General Internal Medicine 07/30/23 Deisy Villar, PA [facility] Radha Ramachandran, [facility] PCP - Medical [employer] 11/30/23 11/29/99 Pillow Filler Relationship Specialty Start Date End Date Robles Charles DO [address] [place] [address] PCP - General Internal Medicine 07/30/23 Deisy Villar, PA [address], [place] [phone] PCP - Medical [employer] 11/30/23 11/29/99 Goals (unrecognized section and content) Goals may be documented in a n alternate section INFORMATION SOURCE (unrecogn ized section and content) DATE CREATED AUTHOR 09/02/2022 [facility] DATE CREATED AUTHOR AUTHOR'S ORGANIZ ATION 09/23/2024 [facility] DATE CREATED AUTHOR AUTHOR'S ORGANIZ ATION 06/27/2025 [facility] FOR RECORDS PERTAINING TO PATIENTS WHO [...] BE BASED ON THE PRIMARY CLINICAL RECORDS. [facility] [employer] provides no warranty or guarantee of the accuracy or completeness of information in this document.
--- NOTE | 2025-07-08 08:04 | US_ITS ---
[address] [address] Patient Name: PHILLIP HERNANDEZ MRN: [facility]:[id number] date: 1990 Sex: F Assigned Patient [facility]: [facility] Current Patient Location: Accession/Order Number: [id number] Exam Date: 07/08/2025 09:19 Report Date: 07/08/2025 09:19 At the request of: LE DELVALLE DO Procedure: US OB BPP w non-stress Biophysical profile. Reason for exam: History of miscarriage COMPARISON: 07/01/2025 TECHNIQUE: Transabdominal imaging of the gravid uterus was obtained. FINDINGS: The assistant professor of communication reports a BPP of 8 out of 8. MARTY is normal at 12.5 cm. heart rate 135 bpm. US/US OB BPP w non-stress IMPRESSION: BPP 8 out of 8. Impression dictated by: Justin Mack Jr., D.O. 07/08/2025 9:19 AM D[facility]ation [facility] Electron[facility] authenticated by: [id number] Y Date: 07/08/2025 09:19
[2025-07-08 08:37] VITALS: BP 119/77; PULSE 70
== END 2025-07-08 09:14 | disposition home or self-care (01) ==
LOC: US 07:58 → FBC 08:01
PROVIDERS: PCP Internal Medicine; Visit Provider Obstetrics & Gynecology
DX: O26.893 Other specified pregnancy related conditions, third trimester (principal); Z3A.35 35 weeks gestation of pregnancy
CPT/HCPCS: 76818

== ENCOUNTER 2025-07-10 20:32 | Outpatient (REF) | payer OTHER, SELFPAY | END 2025-07-10 20:33 | disposition home or self-care (01) | LOC: LAB 20:32 | PROVIDERS: PCP Internal Medicine; Visit Provider Obstetrics & Gynecology | DX: Z34.93 Encounter for supervision of normal pregnancy, unspecified, third trimester (principal); Z3A.35 35 weeks gestation of pregnancy | CPT/HCPCS: 87081 ==

== ENCOUNTER 2025-07-15 07:58 | Outpatient (OUT) | payer OTHER, SELFPAY ==
--- NOTE | 2025-07-15 08:01 | US_ITS ---
[address] [address] Patient Name: PHILLIP HERNANDEZ MRN: [facility]:[id number] date: 1990 Sex: F Assigned Patient Location: [facility] Current Patient Location: Accession/Order Number: [id number] Exam Date: 07/15/2025 09:17 Report Date: 07/15/2025 09:18 At the request of: LE DELVALLE DO Procedure: US OB BPP w non-stress Biophysical profile. Reason for exam: Advanced maternal age COMPARISON: 07/08/2025 TECHNIQUE: Transabdominal imaging of the gravid uterus was obtained. FINDINGS: The fingerprint clerk reports a BPP of 8 out of 8. MARTY is normal at 14 cm. heart rate 136 bpm. US/US OB BPP w non-stress IMPRESSION: BPP 8 out of 8. Impression dictated by: Justin Mack Jr., D.O. 07/15/2025 9:18 AM Dictation Location: [place] [address] Electronically authenticated by: [id number] Y Date: 07/15/2025 09:18
--- OUTSIDE RECORDS SUMMARY | 2025-07-15 08:01 | XMS_ITS | CCD ---
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 Role Phone Subha Dillon Unavailable Elsi Mayer Unavailable MD Liz Conteh Primary Care Provider DO Delano Francis Attending Provider [phone] SITA, DR LUJAN Consulting Unavailable SITA, [...] Francis Attending Provider QUANG Villar Attending Provider [phone] DO Robles Charles Primary Care Provider [phone] Robles Charles MD Primary Care Provider QUANG Villar Attending Provider [phone] DO Robles Charles Primary Care Provider Deisy Pratt Unavailable DO Robles Charels Primary Care Provider Tito - DO Delano MEZA Attending Provider Tito Delano MEZA Admitting Unavailable Tito Delano MEZA Attending Unavailable Robles Charles Primary Care Unavailable Deisy Villar Admitting Unavailable Deisy Villar Attending Unavailable Robles Charles Primary Care Unavailable Robles Charles DO Primary Care Provider [phone] [facility] CRESPO Attending Provider Robles Charles MD [...] (5 sources) Penicillin V Drug Allergy rash [employer] [facility] [employer] Other (1 source) Amoxicillin Drug Allergy 0 [facility] Repository (1 source) Penicillins Drug allergy (disorder) [facility] Repository (5 sources) Penicillin Drug Allergy rash [employer] [facility] [employer] Other (1 source) Substance with penicillin structure and antibacterial mechanism of action (substance) Drug allergy 3 PENICILLINS [facility] [employer] Other (20 sources) Amoxicillin Drug Allergy 3 Hives [facility] Healthcare (20 sources) Penicillin G Drug Allergy 3 Unknown [facility] Healthcare (1 source) Penicillins Drug allergy (disorder) 4 [facility] Repository Medications Current Medications Medication Drug [...] 2 12/22/2024 02/02/2025 Active Pre-Mack (10 sources) Pre- [facility] Pre- Active MV-Min-Fe Fum-FA-DH A ( 1 [...] pack Discontinued 0 PO per package directions 20 05May 02, 2024 11:00pm October 18, 2024 11:19am [...] Overweight Episodic Other and delivery including normal (16 sources) Second trimester ; Translations: [Encounter for [...] [33 weeks gestation of ] 06-26-2025 Episodic Residual codes; unclassified (2 sources) Gestation period, 35 weeks; Translations: [35 weeks gestation of ] 07-10-2025 Episodic Unclassified (1 source) Endocrine disorder, unspecified; Translations: [Endocrine disorder, unspecified] Onset: Past or Other Problems Problem Classification Problem Date Documented Da te Episodic/Chronic Unclassified (1 source) Contact with and (suspected) exposure to covid-19 Z20.822 Viral infection (1 source) COVID-19 Onset: 12-27-2021 Resolved: 12-27-2021 Results Test Name Value Interpretation Reference Range Facility Urinalysis macro (dipstick) panel (U)on 07-10-2025 Bilirubin, UA Negative Negative - 4(70) +++ mg/dL [facility] Blood, UA Negative Negative - 50 Ezequiel/mcL [facility] Clarity, UA Clear [facility] Color, UA Yellow [facility] Glucose, UA Negative Negative - 1999(110) ++++ mg/dL [facility] Interpretation and review of laboratory results Abnormal [facility] Ketones, UA Negative Negative - 160(16) ++++ mg/dL [facility] Leukocytes, UA Positive Negative - 500+++ Jason/mcL [facility] Comment on above: small Nitrite, UA Negative Negative - Positive [facility] pH, UA 6 5 - 9 [facility] Protein, UA Negative Negative - 2000(20) ++++ mg/dL [facility] Spec Grav, UA 1.015 1 - 1.03 [facility] Urobilinogen, UA 0.2 0.2 - 12 mg/dL [facility] US OB BPP W NON-STRESS on 07-08-[address] [address] Ultrasound Report Signed Patient: ANGELA REYES MR#: [id number] : 1990 Acct:[id number] Age/Sex: 35 / F ADM Date: 07/08/25 Loc: US Attending Dr: Ángel Buckner D.O. Ordering Physician: Ángel Buckner D.O. Date of Service: 07/08/25 Procedure(s): US OB BPP w non-stress Accession Number(s): [id number] cc: Robles Charles D.O.; Ángel Buckner D.O. The [address] [address] Patient Name: ANGELA REYES MRN: [facility]:[id number] date: 1990 Sex: F Assigned Patient Location: [facility] Current Patient Location: Accession/Order Number: [id number] Exam Date: 07/08/2025 09:19 Report Date: 07/08/2025 09:19 At the request of: ÁNGEL BUCKNER DO Procedure: US OB BPP w non-stress Biophysical profile. Reason for exam: History of miscarriage COMPARISON: 07/01/2025 TECHNIQUE: Transabdominal imaging of the gravid uterus was obtained. FINDINGS: The plant biology professor reports a BPP of 8 out of 8. MARTY is normal at 12.5 cm. heart rate 135 bpm. US/US OB BPP w non-stress IMPRESSION: BPP 8 out of 8. Impression dictated by: Justin Mack Jr., D.O. 07/08/2025 9:19 AM Dictation Location: [place] [address] Electronically authenticated by: [id number] Y Date: 07/08/2025 09:19 Dictated By: Justin Mack M.D. Signed By: 07/08/25921 DD/ 8 TD/TT: Director Inpatient Headache Program: [facility] Radiology, Radiologi MD ember - 07/08/[address] [place] [address] Ultrasound Report Signed Patient: ANGELA REYES MR#: [id number] : 1990 Acct:[id number] Age/Sex: 35 / F ADM Date: 07/08/25 Loc: US Attending Dr: Ángel Buckner D.O. Ordering Physician: Ángel Buckner D.O. Date of Service: 07/08/25 Procedure(s): US OB BPP w non-stress Accession Number(s): [id number] cc: Robles Charles D.O.; Ángel Buckner D.O. [place] [address] Patient Name: ANGELA REYES MRN: [facility]:[id number] date: 1990 Sex: F Assigned Patient Location: [facility] Current Patient Location: Accession/Order Number: [id number] Exam Date: 07/08/2025 09:19 Report Date: 07/08/2025 09:19 At the request of: ÁNGEL BUCKNER DO Procedure: US OB BPP w non-stress Biophysical profile. Reason for exam: History of miscarriage COMPARISON: 07/01/2025 TECHNIQUE: Transabdominal imaging of the gravid uterus was obtained. FINDINGS: The plant biology professor reports a BPP of 8 out of 8. MARTY is normal at 12.5 cm. heart rate 135 bpm. US/US OB BPP w non-stress IMPRESSION: BPP 8 out of 8. Impression dictated by: Justin Mack Jr., D.O. 07/08/2025 9:19 AM Dictation Location: [place] [address] Electronically authenticated by: [id number] Y Date: 07/08/2025 09:19 Dictated By: Justin Mack M.D. Signed By: 07/08/25921 DD/ 8 TD/TT: Director Inpatient Headache Program: [facility] Radiology Study observation (narrative) [facility] US OB BPP W NON-STRESS Ordered By: Radiologist Radiology on 07-08-2025 [facility] Work Phone: US OB BPP W NON-STRESS on 07-01-2025 [place] [address] Ultrasound Report Signed Patient: ANGELA REYES MR#: [id number] : 1990 Acct:[id number] Age/Sex: 35 / F ADM Date: 07/01/25 Loc: US Attending Dr: Ángel Buckner D.O. Ordering Physician: Ángel Buckner D.O. Date of Service: 07/01/25 Procedure(s): US OB BPP w non-stress Accession Number(s): [id number] cc: Robles Charles D.O.; Ángel Buckner D.O. [place] [id number] Patient Name: ANGELA REYES MRN: [id number] date: 1990 Sex: F Assigned Patient Location: [facility] Current Patient Location: Accession/Order Number: [id number] Exam Date: 07/01/2025 20:05 Report Date: 07/01/2025 [...] Yusuf M.D. 07/01/2025 8:07 PM Dictation Location: [place] [address] Electronically authenticated by: [id number] Y Date: 07/01/2025 20:07 Dictated By: Roddy Yusuf M.D. Signed By: 07/01/252008 DD/ 06 TD/TT: Director Inpatient Headache Program: [facility] Radiology Radiologbrittanie pa MD - 07/01/2025 [place] [address] Ultrasound Report Signed Patient: ANGELA REYES MR#: [id number] : 1990 Acct:[id number] Age/Sex: 35 / F ADM Date: 07/01/25 Loc: US Attending Dr: Ángel Buckner D.O. Ordering Physician: Ángel Buckner D.O. Date of Service: 07/01/25 Procedure(s): US OB BPP w non-stress Accession Number(s): [id number] cc: Robles Charles D.O.; Ángel Buckner D.O. The [place] [address] Patient Name: ANGELA REYES MRN: [facility]:[id number] date: 1990 Sex: F Assigned Patient Location: [facility] Current Patient Location: Accession/Order Number: [id number] Exam Date: 07/01/2025 20:05 Report Date: 07/01/2025 [...] Yusuf M.D. 07/01/2025 8:07 PM Dictation Location: [place] [address] Electronically authenticated by: [id number] Y Date: 07/01/2025 20:07 Dictated By: Roddy Yusuf M.D. Signed By: 07/01/252008 DD/ 06 TD/TT: Director Inpatient Headache Program: [facility] Radiology Study observation (narrative) [facility] US OB BPP W NON-STRESS Ordered By: Radiologist Radiology on 07-01-2025 [facility] Work Phone: US OB FOLLOW UP [...] II, MD, PHD at 26-Jun-2025 11:42:39 [address] [facility] Normal Not Available Comment on above: Order Comment: US OB SCAN FOR GROWTH Estimated Date of Delivery: 08/09/25 Gestational Age as of 06/12/2025: 31w5d Urinalysis macro (dipstick) panel (U)on 06-26-2025 Bilirubin, UA Negative Negative - 4(70) +++ mg/dL [facility] Blood, UA Negative Negative - 50 Ezequiel/mcL [facility] Clarity, UA Clear [facility] Color, UA Yellow [facility] Glucose, UA Negative Negative - 1999(110) ++++ mg/dL [facility] Interpretation and review of laboratory results Normal [facility] Ketones, UA Negative Negative - 160(16) ++++ mg/dL [facility] Leukocytes, UA Negative Negative - 500+++ Jason/mcL [facility] Nitrite, UA Negative Negative - Positive [facility] pH, UA 6.5 5 - 9 [facility] Protein, UA Negative Negative - 2000(20) ++++ mg/dL [facility] Spec Grav, UA 1.01 1 - 1.03 [facility] Urobilinogen, UA 1.0 0.2 - 12 mg/dL [facility] US OB BPP W NON-STRESS on 06-24-2025 [place] [address] Ultrasound Report Signed Patient: ANGELA REYES MR#: [id number] : 1990 Acct:[id number] Age/Sex: 35 / F ADM Date: 06/24/25 Loc: US Attending Dr: Ángel Buckner D.O. Ordering Physician: Ángel Buckner D.O. Date of Service: 06/24/25 Procedure(s): US OB BPP w non-stress Accession Number(s): [id number] cc: Robles Charles D.O.; Ángel Buckner D.O. The [place] [address] Patient Name: ANGELA REYES MRN: [facility]:[id number] date: 1990 Sex: F Assigned Patient Location: US Current Patient Location: Accession/Order Number: [id number] Exam Date: 06/24/2025 09:33 Report Date: 06/24/2025 09:34 At the request of: ÁNGEL BUCKNER DO Procedure: US OB BPP w non-stress Biophysical profile. Reason for exam: History of miscarriage COMPARISON: 06/17/2025 TECHNIQUE: Transabdominal imaging of the gravid uterus was obtained. FINDINGS: The plant biology professor reports a BPP of 8 out of 8. MARTY is normal at 15 cm. heart rate 130 bpm. US/US OB BPP w non-stress IMPRESSION: BPP 8 out of 8. Impression dictated by: Justin Mack Jr., D.O. 06/24/2025 9:34 AM Dictation Location: [place] [address] Electronically authenticated by: [id number] Y Date: 06/24/2025 09:34 Dictated By: Justin Mack M.D. Signed By: 06/24/2536 DD/ 3 TD/TT: Director Inpatient Headache Program: [facility] Radiology, Neelimaogbrittanie pa MD - 06/24/2025 [place] [address] Ultrasound Report Signed Patient: ANGELA REYES MR#: [id number] : 1990 Acct:[id number] Age/Sex: 35 / F ADM Date: 06/24/25 Loc: US Attending Dr: Ángel Buckner D.O. Ordering Physician: Ángel Buckner D.O. Date of Service: 06/24/25 Procedure(s): US OB BPP w non-stress Accession Number(s): [id number] cc: Robles Charles D.O.; Ángel Buckner D.O. The [place] [id number] Patient Name: ANGELA REYES MRN: [facility]:[id number] date: 1990 Sex: F Assigned Patient Location: Current Patient Location: Accession/Order Number: [id number] Exam Date: 06/24/2025 09:33 Report Date: 06/24/2025 09:34 At the request of: ÁNGEL BUCKNER DO Procedure: US OB BPP w non-stress Biophysical profile. Reason for exam: History of miscarriage COMPARISON: 06/17/2025 TECHNIQUE: Transabdominal imaging of the gravid uterus was obtained. FINDINGS: The plant biology professor reports a BPP of 8 out of 8. MARTY is normal at 15 cm. heart rate 130 bpm. US/US OB BPP w non-stress IMPRESSION: BPP 8 out of 8. Impression dictated by: Justin Mack Jr., D.O. 06/24/2025 9:34 AM Dictation Location: [place] [address] Electronically authenticated by: [id number] Y Date: 06/24/2025 09:34 Dictated By: Justin Mack M.D. Signed By: 06/24/2536 DD/ 3 TD/TT: Director Inpatient Headache Program: [facility] Radiology Study observation (narrative) [facility] US OB BPP W NON-STRESS Ordered By: Radiologist Radiology on 06-24-2025 [facility] [employer] Work Phone: US OB BPP W NON-STRESS on 06-17-2025 [place] [address] Ultrasound Report Signed Patient: ANGELA REYES MR#: [id number] : 1990 Acct:[id number] Age/Sex: 35 / F ADM Date: 06/17/25 Loc: [facility] 250-[address]: Ángel Buckner D.O. Ordering Physician: Ángel Buckner D.O. Date of Service: 06/17/25 Procedure(s): US OB BPP w non-stress Accession Number(s): [id number] cc: Robles Charles D.O.; Ángel Buckner D.O. [place] [id number] Patient Name: ANGELA REYES MRN: [facility]:[id number] date: 1990 Sex: F Assigned Patient Location: [facility] Current Patient Location: [facility] Accession/Order Number: [id number] Exam Date: 06/17/2025 09:17 Report Date: 06/17/2025 [...] Ramachandran M.D. 06/17/2025 9:20 AM Dictation Location: [place] [address] Electronically authenticated by: [id number] Y Date: 06/17/2025 09:20 Dictated By: Carlton Ramachandran M.D. Signed By: 06/17/25921 DD/ 9 TD/TT: Director Inpatient Headache Program: [facility] Radiology, Radiologi MD ember - 06/17/2025 [place] [address] Ultrasound Report Signed Patient: ANGELA REYES MR#: [id number] : 1990 Acct:[id number] Age/Sex: 35 / F ADM Date: 06/17/25 Loc: [facility] 250-[address]: Ángel Buckner D.O. Ordering Physician: Ángel Buckner D.O. Date of Service: 06/17/25 Procedure(s): US OB BPP w non-stress Accession Number(s): [id number] cc: Robles Charles D.O.; Ángel Buckner D.O. The [place] [address] Patient Name: ANGELA REYES MRN: [facility]:[id number] date: 1990 Sex: F Assigned Patient Location: [facility] Current Patient Location: [facility] Accession/Order Number: [id number] Exam Date: 06/17/2025 09:17 Report Date: 06/17/2025 [...] Ramachandran M.D. 06/17/2025 9:20 AM Dictation Location: [place] [address] Electronically authenticated by: [id number] Y Date: 06/17/2025 09:20 Dictated By: Carlton Ramachandran M.D. Signed By: 06/17/25921 DD/ 9 TD/TT: Director Inpatient Headache Program: [facility] Radiology Study observation (narrative) [facility] US OB BPP W NON-STRESS Ordered By: Radiologist Radiology on 06-17-2025 [facility] Work Phone: US OB BPP W NON-STRESS on 06-10-2025 [place] [address] Ultrasound Report Signed Patient: ANGELA REYES MR#: [id number] : 1990 Acct:[id number] Age/Sex: 35 / F ADM Date: 06/10/25 Loc: US Attending Dr: Ángel Buckner D.O. Ordering Physician: Ángel Buckner D.O. Date of Service: 06/10/25 Procedure(s): US OB BPP w non-stress Accession Number(s): [id number] cc: Robles Charles D.O.; Ángel Buckner D.O. [place] [address] Patient Name: ANGELA REYES MRN: [facility]:[id number] date: 1990 Sex: F Assigned Patient Location: [facility] Current Patient Location: Accession/Order Number: [id number] Exam Date: 06/10/2025 18:36 Report Date: 06/10/2025 [...] Yusuf M.D. 06/10/2025 6:38 PM Dictation Location: [place] [address] Electronically authenticated by: [id number] Y Date: 06/10/2025 18:38 Dictated By: Roddy Yusuf M.D. Signed By: 06/10/25 184 DD/ 37 TD/TT: Director Inpatient Headache Program: [facility] Radiology, Radiologi MD ember - 06/10/2025 [place] [address] Ultrasound Report Signed Patient: ANGELA REYES MR#: [id number] : 1990 Acct:[id number] Age/Sex: 35 / F ADM Date: 06/10/25 Loc: US Attending Dr: Ángel Buckner D.O. Ordering Physician: Ángel Buckner D.O. Date of Service: 06/10/25 Procedure(s): US OB BPP w non-stress Accession Number(s): [id number] cc: Robles Charles D.O.; Ángel Buckner D.O. The [place] [id number] Patient Name: ANGELA REYES MRN: [facility]:[id number] date: 1990 Sex: F Assigned Patient Location: [facility] Current Patient Location: Accession/Order Number: [id number] Exam Date: 06/10/2025 18:36 Report Date: 06/10/2025 [...] Yusuf M.D. 06/10/2025 6:38 PM Dictation Location: [place] [address] Electronically authenticated by: [id number] Y Date: 06/10/2025 18:38 Dictated By: Roddy Yusuf M.D. Signed By: 06/10/251840 DD/ 37 TD/TT: Director Inpatient Headache Program: [facility] Radiology Study observation (narrative) [facility] US OB BPP W NON-STRESS Ordered By: Radiologist Radiology on 06-10-2025 [facility] Work Phone: US OB BPP W NON-STRESS on 06-03-2025 [place] [address] Ultrasound Report Signed Patient: ANGELA REYES MR#: [id number] : 1990 Acct:[id number] Age/Sex: 35 / F ADM Date: 06/03/25 Loc: US Attending Dr: Ángel Buckner D.O. Ordering Physician: Ángel Buckner D.O. Date of Service: 06/03/25 Procedure(s): US OB BPP w non-stress Accession Number(s): [id number] cc: Robles Charles D.O.; Ángel Buckner D.O. [place] [id number] Patient Name: ANGELA REYES MRN: [facility]:[id number] date: 1990 Sex: F Assigned Patient Location: [facility] Current Patient Location: Accession/Order Number: [id number] Exam Date: 06/03/2025 14:22 Report Date: 06/03/2025 [...] Durand M.D. 06/03/2025 2:23 PM [facility] Electron[facility] authenticated by: [id number] Y Date: 06/03/2025 14:23 Dictated By: Aguilar Durand D.O. Signed By: 06/03/25 1425 DD/ 22 TD/TT: Director Inpatient Headache Program: [facility] Radiology, Radiologi MD ember - 06/03/2025 [place] [address] Ultrasound Report Signed Patient: ANGELA REYES MR#: [id number] : 1990 Acct:[id number] Age/Sex: 35 / F ADM Date: 06/03/25 Loc: US Attending Dr: Ángel Buckner D.O. Ordering Physician: Ángel Buckner D.O. Date of Service: 06/03/25 Procedure(s): US OB BPP w non-stress Accession Number(s): [id number] cc: Robles Charles D.O.; Ángel Buckner D.O. The [address] [address] Patient Name: ANGELA REYES MRN: [facility]:[id number] date: 1990 Sex: F Assigned Patient Location: [facility] Current Patient Location: Accession/Order Number: [id number] Exam Date: 06/03/2025 14:22 Report Date: 06/03/2025 [...] Durand M.D. 06/03/2025 2:23 PM Dictation Location: [employer] Electronically authenticated by: [id number] Y Date: 06/03/2025 14:23 Dictated By: Aguilar Durand D.O. Signed By: 06/03/255 DD/ 22 TD/TT: Director Inpatient Headache Program: [facility] Radiology Study observation (narrative) [facility] US OB BPP W NON-STRESS Ordered By: Radiologist Radiology on 06-03-2025 [facility] Work Phone: Urinalysis macro (dipstick) panel (U)on 05-30-2025 Bilirubin, UA Negative Negative - 4(70) +++ mg/dL [facility] Blood, UA Negative Negative - 50 Ezequiel/mcL [facility] Clarity, UA Clear [facility] Color, UA Yellow [facility] Glucose, UA Negative Negative - 2000(110) ++++ mg/dL [facility] Interpretation and review of laboratory results Normal [facility] Ketones, UA Negative Negative - 160(16) ++++ mg/dL [facility] Leukocytes, UA Negative Negative - 500+++ Jason/mcL [facility] Nitrite, UA Negative Negative - Positive [facility] pH, UA 5.5 5 - 9 [facility] Protein, UA Negative Negative - 2000(20) ++++ mg/dL [facility] Spec Grav, UA 1.02 1 - 1.03 [facility] Urobilinogen, UA 1.0 0.2 - 12 mg/dL [facility] US OB GROWTHon 05-11-[address] [address] Ultrasound Report Signed Patient: ANGELA REYES MR#: [id number] : 1990 Acct:[id number] Age/Sex: 35 / F ADM Date: 05/11/25 Loc: Attending Dr: Edson Dewitt Ordering Physician: Edson Dewitt Date of Service: 05/11/25 Procedure(s): US OB growth Accession Number(s): [id number] cc: Robles Charles D.O.; Edson Dewitt The [place] [address] Patient Name: ANGELA REYES MRN: [facility]:[id number] date: 1990 Sex: F Assigned Patient Location: Current Patient Location: US Accession/Order Number: [id number] Exam Date: 05/11/2025 14:38 Report Date: 05/11/2025 [...] Jr., D.O. 05/11/2025 2:40 PM Dictation Location: [place] [address] Electronically authenticated by: [id number] Y Date: 05/11/2025 14:40 Dictated By: Justin Mack M.D. Signed By: 05/11/25 1442 DD/ 1440 TD/TT: Director Inpatient Headache Program: [facility] RadiologyNeelimaogbrittanie pa MD - 05/11/2025 The [place] [id number] Ultrasound Report Signed Patient: ANGELA REYES MR#: [id number] : 1990 Acct:[id number] Age/Sex: 35 / F ADM Date: 05/11/25 Loc: US Attending Dr: Edson Dewitt Ordering Physician: Edson Dewitt Date of Service: 05/11/25 Procedure(s): US OB growth Accession Number(s): [id number] cc: Robles Charles D.O.; Edson Dewitt [place] [id number] Patient Name: ANGELA REYES MRN: [id number] date: 1990 Sex: F Assigned Patient Location: US Current Patient Location: US Accession/Order Number: [id number] Exam Date: 05/11/2025 14:38 Report Date: 05/11/2025 [...] Jr., D.O. 05/11/2025 2:40 PM Dictation Location: [place] [address] Electronically authenticated by: [id number] Y Date: 05/11/2025 14:40 Dictated By: Justin Mack M.D. Signed By: 05/11/25 1442 DD/ 39 TD/TT: Director Inpatient Headache Program: [facility] Radiology Study observation (narrative) [facility] US OB GROWTHOrdered By: Reg ologist Radiology on 05-11-2025 [facility] Work Phone: ALL CBC WITH AUTO DIFFon BASOPHILS ABSOLUTE AUTO 0 N [facility] Basophils/100 WBC (Bld) 0.2 % 0.2 - 2.0 % [facility] Eosinophils/100 WBC (Bld) 1.2 % 0.9 - 7.0 % [facility] Erythrocyte distribution width (RBC) [Ratio] 13.2 % 11.0 - 15.0 % [facility] Hematocrit (Bld) [Volume fraction] 31.9 % Low 36.0 - 48.0 % [facility] Hemoglobin (Bld) [Mass/Vol] 10.6 g/dL Low 12.0 - 16.0 g/dL [facility] IMMATURE GRANULOCYTES ABS AUTO 0.06 High [facility] Immature granulocytes/100 WBC (Bld) 0.6 % High 0.0 - 0.5 % [facility] Interpretation and review of laboratory results Abnormal [facility] LYMPHOCYTES ABSOLUTE AUTO 1.6 [facility] Lymphocytes/100 WBC (Bld) 15.6 % Low 20.5 - 60.0 % [facility] MCH (RBC) [Entitic mass] 32.6 pg 26.7 - 34.0 pg [facility] MCHC (RBC) [Mass/Vol] 33.2 g/dL 29.9 - 35.2 g/dL [facility] MCV (RBC) [Entitic vol] 98.2 fL 81.0 - 99.0 fL [facility] MONOCYTES ABSOLUTE AUTO 0.6 N [facility] Monocytes/100 WBC (Bld) 6 % 1.7 - 12.0 % [facility] NEUTROPHILS ABSOLUTE AUTO 7.7 High [facility] Neutrophils/100 WBC (Bld) 76.4 % High 43.0 - 75.0 % [facility] Platelet mean volume (Bld) [Entitic vol] 9 fL Low 9.5 - 13.5 fL [facility] TBH EO # 0.1 [facility] TBH PLT 313 [facility] TB RBC 3.25 Low [facility] TBH WBC 10.1 [facility] GLUCOSE 1 HOURon 04-18-2025 Glucose [Mass/Vol] 96 mg/dL NINF - 13 0 mg/dL [facility] No Panel Informationon 04-18 [facility] US OB LIMITED 1+ FETUSESon 0 [...] II, MD, PHD at 21-Apr-2025 12:15:59 PM [facility] Normal Not Available Comment on above: Order Comment: US OB INCOMPLETE ANATOMY W US OB TRANSVAGINAL Estimated Date of Delivery: 08/09/25 Gestational Age as of 03/30/2025: 21w1d Urinalysis macro (dipstick) panel (U)on 03-30-2025 Bilirubin, UA Negative Negative - 4(70) +++ mg/dL [facility] Blood, UA Negative Negative - 50 Ezequiel/mcL [facility] Clarity, UA Clear [facility] Color, UA Yellow [facility] Glucose, UA Negative Negative - 2000(110) ++++ mg/dL [facility] Interpretation and review of laboratory results Normal [facility] Ketones, UA Negative Negative - 160(16) ++++ mg/dL [facility] Leukocytes, UA Negative Negative - 500+++ Jason/mcL [facility] Nitrite, UA Negative Negative - Positive [facility] pH, UA 7 5 - 9 [facility] Protein, UA Negative Negative - 2000(20) ++++ mg/dL [facility] Spec Grav, UA 1.02 1 - 1.03 [facility] Urobilinogen, UA 0.2 0.2 - 12 mg/dL [facility] US OB ANATOMYon 03-21-2025 [facility] [address] [place] [address] Ultrasound Report Signed Patient: ANGELA REYES MR#: [id number] : 1990 Acct:[id number] Age/Sex: 35 / F ADM Date: 03/20/25 Loc: US Attending Dr: Deisy Villar Ordering Physician: Deisy Villar Date of Service: 03/20/25 Procedure(s): US OB anatomy Accession Number(s): [id number] cc: Deisy Villar; Robles Charles D.O. [address] [address] Patient Name: ANGELA REYES MRN: [facility]:[id number] date: 1990 Sex: F Assigned Patient Location: US Current Patient Location: Accession/Order Number: [id number] Exam Date: 03/21/2025 13:12 Report Date: 03/21/2025 [...] Aguilar Durand M.D.03/21/2025 1:16 PM Dictation Location: [employer] Electronically authenticated by: [id number] Y Date: 03/21/2025 13:16 Dictated By: Aguilar Durand D.O. Signed By: 03/21/25 1319 DD/ 15 TD/TT: Director Inpatient Headache Program: [facility] Neelima Wolffogbrittanie pa MD - 03/21/2025 [place] [address] Ultrasound Report Signed Patient: ANGELA REYES MR#: [id number] : 1990 Acct:[id number] Age/Sex: 35 / F ADM Date: 03/20/25 Loc: US Attending Dr: Deisy Villar Ordering Physician: Deisy Villar Date of Service: 03/20/25 Procedure(s): US OB anatomy Accession Number(s): [id number] cc: Deisy Villar; Robles Charles D.O. The [address] [address] Patient Name: ANGELA REYES MRN: [facility]:[id number] date: 1990 Sex: F Assigned Patient Location: US Current Patient Location: Accession/Order Number: [id number] Exam Date: 03/21/2025 13:12 Report Date: 03/21/2025 [...] Aguilar Durand M.D.03/21/2025 1:16 PM Dictation Location: [place] [address] Electronically authenticated by: [id number] Y Date: 03/21/2025 13:16 Dictated By: Aguilar Durand D.O. Signed By: 03/21/25 1319 DD/ 15 TD/TT: Director Inpatient Headache Program: [facility] Radiology Study observation (narrative) [facility] US OB ANATOMYOrdered By: Chepe iologdarwin Radiology on 03-21-2025 [facility] Work Phone: US OB CERVICAL LENGTHon 03-01 [place] [id number] Ultrasound Report Signed Patient: ANGELA REYES MR#: [id number] : 1990 Acct:[id number] Age/Sex: 35 / F ADM Date: 03/20/25 Loc: US Attending Dr: Deisy Villar Ordering Physician: Deisy Villar Date of Service: 03/20/25 Procedure(s): US OB cervical length Accession Number(s): [id number] cc: Deisy Villar; Robles Charles D.O. The [place] [id number] Patient Name: ANGELA REYES MRN: [facility]:[id number] date: 1990 Sex: F Assigned Patient Location: US Current Patient Location: Accession/Order Number: [id number] Exam Date: 03/21/2025 09:18 Report Date: 03/21/2025 09:19 At the request of: DEISY VILLAR Procedure: US OB cervical length Ultrasound assessment of the cervical length The cervical length is 3.8 cm. The cervical os is closed. US/US OB cervical length IMPRESSION: #3.8 cm cervical length. Impression dictated by: Aguilar Durand M.D.03/21/2025 9:19 AM Dictation Location: [place] [address] Electronically authenticated by: [id number] Y Date: 03/21/2025 09:19 Dictated By: Aguilar Durand D.O. Signed By: 03/21/25921 DD/ 8 TD/TT: Director Inpatient Headache Program: [facility] Radiology, Radiologi MD ember - 03/21/2025 [place] [address] Ultrasound Report Signed Patient: ANGELA REYES MR#: [id number] : 1990 Acct:[id number] Age/Sex: 35 / F ADM Date: 03/20/25 Loc: US Attending Dr: Deisy Villar Ordering Physician: Deisy Villar Date of Service: 03/20/25 Procedure(s): US OB cervical length Accession Number(s): [id number] cc: Deisy Villar; Robles Charles D.O. The [place] [address] Patient Name: ANGELA REYES MRN: [facility]:[id number] date: 1990 Sex: F Assigned Patient Location: US Current Patient Location: Accession/Order Number: [id number] Exam Date: 03/21/2025 09:18 Report Date: 03/21/2025 09:19 At the request of: DEISY VILLAR Procedure: US OB cervical length Ultrasound assessment of the cervical length The cervical length is 3.8 cm. The cervical os is closed. US/US OB cervical length IMPRESSION: #3.8 cm cervical length. Impression dictated by: Aguilar Durand M.D.03/21/2025 9:19 AM Dictation Location: [place] [address] Electronically authenticated by: [id number] Y Date: 03/21/2025 09:19 Dictated By: Aguilar Durand D.O. Signed By: 03/21/25921 DD/ 8 TD/TT: Director Inpatient Headache Program: [facility] Radiology Study observation (narrative) [facility] US OB CERVICAL LENGTHOrdered By: Radiologist Radiology on 03-21-2025 [facility] Work Phone: IGP,APTIMA HPV,AGE GDLNon AGE GDLN ACOG TESTING Note . [facility] Comment on above: TESTS RESULT FLAG UN ITS REF RANGE LAB Clinician Provided Cytology Information Source.............Cervix Other.............. No. of containers..01 ThinPrep Vial Age Algo ACOG Lara... 30-65 01 FLAG LEGEND: L-Low Normal,H-High Normal,LL-Alert Low,HH-Alert High <-Panic Low,>-Panic High,A-Abnormal,AA-Critical Abnormal Performed at: 01 =G [address] [place] [address] Ilana Heath MD, HPV APTIMA Negative Negative [facility] Comment on above: This nucleic acid am plification test detects fourteen high- risk HPV types (16,18,31,33,35,39,45,51,52,56,58,59,66,68) without differentiation. Performed at: =G - [facility] [id number] Research Professor: Ilana Heath MD, Phone: [phone] Performed at: WB - [facility], [place] [id number] Research Professor: Ilana Heath MD, Phone: [phone] IGP, APTIMA HPV, RFX 16/18,45 Note . [facility] Comment on above: TESTS RESULT FLAG UN ITS REF RANGE LAB DIAGNOSIS: 02 NEGATIVE FOR INTRAEPITHELIAL LESION OR MALIGNANCY. 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 Specimen adequacy: 02 Satisfactory for evaluation. No endocervical component is identified. Performed by: 03 Eugenia Kennedy, Manager Of Environmental Services (ASCP) QC reviewed by: 02 Meredith Chávez, Scale Assembly Set Up Worker . 02 Note: Note 02 The Pap [...] High,A-Abnormal,AA-Critical Abnormal Performed at: 02 WB [facility] [address] [place] [address] Ilana Heath MD, 03 KWCYT [facility] [address] [place] [address] Lloyd Kim MD, SPATULA-ALONE CERVIX [facility] RECURRENT VAGINITIS (HTRX)on 03-03-2025 ATOPOBIUM VAGINAE 0 [facility] ATOPOBIUM VAGINAE Not detected [facility] 2,3 (BACTERIAL VAGINOSIS ASSOCIATED BACTERIA 2, 3); MOBILUNCUS SPP 0 [facility] BVAB 2,3 (BACTERIAL VAGINOSIS ASSOCIATED BACTERIA 2, 3); MOBILUNCUS SPP Not detected [facility] ANEUDY ALBICANS, PARAPSILOSIS, TROPICALIS 0 [facility] Healthcare ANEUDY ALBICANS, PARAPSILOSIS, TROPICALIS Not detected [facility] ANEUDY GLABRATA 0 [facility] Healthcare ANEUDY GLABRATA Not detected [facility] ANEUDY KRUSEI 0 [facility] ANEUDY KRUSEI Not detected [facility] CHLAMYDIA TRACHOMATIS 0 [facility] CHLAMYDIA TRACHOMATIS Not detected [facility] GARDNERELLA VAGINALIS 0 [facility] S Healthcare GARDNERELLA VAGINALIS Not detected [facility] MEGASPHAERA (TYPES 1, 2) 0 [facility] MEGASPHAERA (TYPES 1, 2) Not detected [facility] MYCOPLASMA GENITALIUM 0 [facility] S Healthcare MYCOPLASMA GENITALIUM Not detected N S Healthcare NEISSERIA GONORRHOEAE 0 [facility] S Healthcare NEISSERIA GONORRHOEAE Not detected [facility] TRICHOMONAS VAGINALIS 0 [facility] S Healthcare TRICHOMONAS VAGINALIS Not detected [facility] Healthcare Urinalysis macro (dipstick) panel (U)on 03-02-2025 Bilirubin, UA Negative Negative - 4(70) +++ mg/dL [facility] Blood, UA Negative Negative - 50 Ezequiel/mcL [facility] Clarity, UA Clear [facility] Color, UA Yellow [facility] Glucose, UA Negative Negative - 2000(110) ++++ mg/dL [facility] Interpretation and review of laboratory results Normal [facility] Ketones, UA Negative Negative - 160(16) ++++ mg/dL [facility] Leukocytes, UA Negative Negative - 500+++ Jason/mcL [facility] Nitrite, UA Negative Negative - Positive [facility] pH, UA 7 5 - 9 [facility] Protein, UA Negative Negative - 1999(20) ++++ mg/dL [facility] Spec Grav, UA 1.02 1 - 1.03 [facility] Urobilinogen, UA 0.2 0.2 - 12 mg/dL [facility] Urinalysis macro (dipstick) panel (U)on 02-02-2025 Bilirubin, UA Negative Negative - 4(70) +++ mg/dL [facility] Blood, UA Negative Negative - 50 Ezequiel/mcL [facility] Clarity, UA Clear [facility] Color, UA Yellow [facility] Glucose, UA Negative Negative - 1999(110) ++++ mg/dL [facility] Interpretation and review of laboratory results Abnormal [facility] Ketones, UA Negative Negative - 160(16) ++++ mg/dL [facility] Leukocytes, UA Trace Negative - 500+++ Jason/mcL [facility] Nitrite, UA Negative Negative - Positive [facility] pH, UA 6 5 - 9 [facility] Protein, UA Negative Negative - 1999(20) ++++ mg/dL [facility] Spec Grav, UA 1.025 1 - 1.03 [facility] Urobilinogen, UA 0.2 0.2 - 12 mg/dL [facility] ALL CBC WITH AUTO DIFFon BASOPHILS ABSOLUTE AUTO 0 N [facility] Basophils/100 WBC (Bld) 0.4 % 0.2 - 2.0 % [facility] Eosinophils/100 WBC (Bld) 2.2 % 0.9 - 7.0 % [facility] Erythrocyte distribution width (RBC) [Ratio] 12.5 % 11.0 - 15.0 % [facility] Hematocrit (Bld) [Volume fraction] 34 % Low 36.0 - 48.0 % [facility] Hemoglobin (Bld) [Mass/Vol] 11.7 g/dL Low 12.0 - 16.0 g/dL [facility] IMMATURE GRANULOCYTES ABS AUTO 0.03 [facility] Immature granulocytes/100 WBC (Bld) 0.4 % 0.0 - 0.5 % [facility] Interpretation and review of laboratory results Abnormal [facility] LYMPHOCYTES ABSOLUTE AUTO 1.6 [facility] Lymphocytes/100 WBC (Bld) 20.4 % Low 20.5 - 60.0 % [facility] MCH (RBC) [Entitic mass] 31.5 pg 26.7 - 34.0 pg [facility] MCHC (RBC) [Mass/Vol] 34.4 g/dL 29.9 - 35.2 g/dL [facility] MCV (RBC) [Entitic vol] 91.6 fL 81.0 - 99.0 fL [facility] MONOCYTES ABSOLUTE AUTO 0.6 N [facility] Monocytes/100 WBC (Bld) 7.2 % 1.7 - 12.0 % [facility] NEUTROPHILS ABSOLUTE AUTO 5.6 [facility] Neutrophils/100 WBC (Bld) 69.4 % 43.0 - 75.0 % [facility] Platelet mean volume (Bld) [Entitic vol] 9.6 fL 9.5 - 13.5 fL [facility] TBH EO # 0.2 [facility] PLT 302 [facility] TB RBC 3.[address] [facility] WBC 8 [facility]IN[facility] US OB TRANSVAGINALon 025 US OB [...] II, MD, PHD at 09-Jan-2025 09:10:54 AM [facility] Normal Not Available Comment on above: Order Comment: US OB TRANSVAGINAL No LMP recorded. [facility] PREG QUANT HCGon 025 HCG QUANTITATIVE 67506 mIU/mL [facility] Comment on above: 5-50 0.2-1 WEEK 50-500 1-2 WEEKS 100-5,000 2-3 WEEKS 500-10,000 3-4 WEEKS 1,000-50,000 4-5 WEEKS 10,000-100,000 5-6 WEEKS 15,000-200,000 6-8 WEEKS 10,000-100,000 2-[facility] 025 HCG QUANTITATIVE 74246 mIU/mL [facility] Comment on above: 5-50 0.2-1 WEEK 50-500 1-2 WEEKS 100-5,000 2-3 WEEKS 500-10,000 3-4 WEEKS 1,000-50,000 4-5 WEEKS 10,000-100,000 5-6 WEEKS 15,000-200,000 6-8 WEEKS 10,000-100,000 2[facility]ophil %Ordered By: Delano Francis on 09-22-2024 Basophils/100 WBC (Bld) 0.6 % Normal . [facility] Comment on above: Performed By: #### D HEAS, LC T4, [id number], SEROTON, TEST F + T, T3R, THYGLOB AB, ESTRADIOL, TPO, SHBG, ESTRONE, INSULIN, PROG #### [facility] , #### T4F, TRISTEN, TSH3, A1C WTH eA, FILIBERTO, GLU, T3F #### [address] Automated basophil countOrde red By: Delano Francis on 09-22-2024 Basophils (Bld) [#/Vol] 0.0 10*3/uL Normal 0.0-0.2 [facility] Comment on above: Result Comment: PERF ORMED BY: [place] [address] PATHOLOGIST INTERVENTION SPECIALIST JOSE GOEL M.D. Performed By: #### D HEAS, LC T4, [id number], SEROTON, TEST F + T, T3R, THYGLOB AB, ESTRADIOL, TPO, SHBG, ESTRONE, INSULIN, PROG #### [facility] , #### T4F, TRISTEN, TSH3, A1C WTH eA, FILIBERTO, GLU, T3F #### [facility] [address] [place] [address] Automated blood monocyte cou ntOrdered By: Delano Francis on 09-22-2024 Monocytes (Bld) [#/Vol] 0.4 10*3/uL Normal 0.0-0.8 [facility] Comment on above: Performed By: #### D HEAS, LC T4, [id number], SEROTON, TEST F + T, T3R, THYGLOB AB, ESTRADIOL, TPO, SHBG, ESTRONE, INSULIN, PROG #### [facility] , #### T4F, TRISTEN, TSH3, A1C WTH eA, FILIBERTO, GLU, T3F #### [facility] [address] [place] [address] Automated eosinophil %Ordere d By: Delano Francis on 09-22-2024 Eosinophils/100 WBC (Bld) 1.7 % Normal . [facility] Comment on above: Performed By: #### D HEAS, LC T4, [id number], SEROTON, TEST F + T, T3R, THYGLOB AB, ESTRADIOL, TPO, SHBG, ESTRONE, INSULIN, PROG #### [facility] , #### T4F, TRISTEN, TSH3, A1C WTH eA, FILIBERTO, GLU, T3F #### [address] Automated eosinophil countOr dered By: Delano Francis on 09-22-2024 Eosinophils (Bld) [#/Vol] 0.1 10*3/uL Normal 0.0-0.45 [facility] Comment on above: Performed By: #### D HEAS, LC T4, [id number], SEROTON, TEST F + T, T3R, THYGLOB AB, ESTRADIOL, TPO, SHBG, ESTRONE, INSULIN, PROG #### [facility] , #### T4F, TRISTEN, TSH3, A1C WTH eA, FILIBERTO, GLU, T3F #### [facility] [address] Automated monocyte %Ordered By: Delano Francis on 09-22-2024 Monocytes/100 WBC (Bld) 8.7 % Normal . [facility] Comment on above: Performed By: #### D HEAS, LC T4, [id number], SEROTON, TEST F + T, T3R, THYGLOB AB, ESTRADIOL, TPO, SHBG, ESTRONE, INSULIN, PROG #### [facility] , #### T4F, TRISTEN, TSH3, A1C WTH eA, FILIBERTO, GLU, T3F #### [address] Automated neutrophil %Ordere d By: Delano Francis on 09-22-2024 Neutrophils/100 WBC (Bld) 63.7 % Normal . [facility] Comment on above: Performed By: #### D HEAS, LC T4, [id number], SEROTON, TEST F + T, T3R, THYGLOB AB, ESTRADIOL, TPO, SHBG, ESTRONE, INSULIN, PROG #### [facility] , #### T4F, TRISTEN, TSH3, A1C WTH eA, FILIBERTO, GLU, T3F #### [facility] [address] [place] [address] [place] Basophils Auto (Bld) [#/Vol] Ordered By: Delano Francis on 09-22-2024 Basophils (Bld) [#/Vol] Automated basophil count 0.0-0.2 [facility] Basophils/100 WBC Auto (Bld) Ordered By: Delano Francis on 09-22-2024 Basophils/100 WBC (Bld) Automated basophil % . [facility] Calcium [Mass/volume] in Ser um or PlasmaOrdered By: Delano Francis on 09-22-2024 Calcium [Mass/Vol] 9.4 mg/dL Normal 8.6-10.3 [facility] Comment on above: Performed By: #### D DANIELLEAS, LC T4, [id number], SEROTON, TEST F + T, T3R, THYGLOB AB, ESTRADIOL, TPO, SHBG, ESTRONE, INSULIN, PROG #### [facility] , #### T4F, TRISTEN, TSH3, A1C WTH eA, FILIBERTO, GLU, T3F #### [facility] [address] Calcium [Mass/Vol] Calcium [Mass/volume ] in Serum or Plasma 8.6-10.3 [facility] Carbon dioxide, total [Moles /volume] in Serum or PlasmaOrdered By: Delano Francis on 09-22-2024 CO2 [Moles/Vol] 29.2 mmol/L Normal 21.0-31.0 [facility] Comment on above: Performed By: #### D VENITA, LC T4, [id number], SEROTON, TEST F + T, T3R, THYGLOB AB, ESTRADIOL, TPO, SHBG, ESTRONE, INSULIN, PROG #### [facility] , #### T4F, TRISTEN, TSH3, A1C WTH eA, FILIBERTO, GLU, T3F #### [facility] [address] CO2 [Moles/Vol] Carbon dioxide, tota l [Moles/volume] in Serum or Plasma 21.0-31.0 [facility] Chloride [Moles/volume] in S stevo or PlasmaOrdered By: Delano Francis on 09-22-2024 Chloride [Moles/Vol] 105 mmol/L Normal 98-107 [facility] Comment on above: Performed By: #### D HEAS, LC T4, [id number], SEROTON, TEST F + T, T3R, THYGLOB AB, ESTRADIOL, TPO, SHBG, ESTRONE, INSULIN, PROG #### [facility] , #### T4F, TRISTEN, TSH3, A1C WTH eA, FILIBERTO, GLU, T3F #### [facility] [address] Chloride [Moles/Vol] Chloride [Moles/vol ume] in Serum or Plasma 98-107 [facility] Cholesterol [Mass/volume] in Serum or PlasmaOrdered By: Delano Francis on 09-22-2024 Cholesterol [Mass/Vol] 217 mg/dL High 140-200 [facility] Comment on above: Chol less than 200 m g/dl low riskChol 201-239 mg/dl borderline riskChol 240 mg/dl and greater high risk Result Comment: Chol less than 200 mg/dl low risk Chol 201-239 mg/dl borderline risk Chol 240 mg/dl and greater high risk Performed By: #### D HEAS, LC T4, [id number], SEROTON, TEST F + T, T3R, THYGLOB AB, ESTRADIOL, TPO, SHBG, ESTRONE, INSULIN, PROG #### [facility] , #### T4F, TRISTEN, TSH3, A1C WTH eA, FILIBERTO, GLU, T3F #### [facility] [address] Cholesterol [Mass/Vol] Cholesterol [Mass/volume] in Serum or Plasma High 140-200 [facility] Comment on above: Chol less than 200 m g/dl low riskChol 201-239 mg/dl borderline riskChol 240 mg/dl and greater high risk Cholesterol in HDL [Mass/vol ume] in Serum or PlasmaOrdered By: Delano Francis on 09-22-2024 Cholesterol in HDL [Mass/Vol] Serum or plasma high density lipoprotein (HDL) cholesterol measurement 23-92 [facility] Comment on above: HDL CHOL ATP-III CLA SSIFICATION Cardiovascular RiskHDL > or equal to 60 mg/dL LOWHDL < 40 mg/dL HIGH Cholesterol in LDL Calc [Mas s/Vol]Ordered By: Delano Francis on 09-22-2024 Cholesterol in LDL [Mass/Vol] 148 mg/dL High 0-100 [facility] Comment on above: LDL ATP III CLASSIFI CATIONLDL less than 100 mg/dL OptimalLDL 100-129 mg/dL Near or above optimalLDL 130-159 mg/dL Borderline highLDL 160-189 mg/dL HighLDL greater than 189 mg/dL Very high Cholesterol in LDL [Mass/Vol] Cholesterol in LDL [Mass/volume] in Serum or Plasma by calculation High 0-100 [facility] Comment on above: LDL ATP III CLASSIFI CATIONLDL less than 100 mg/dL OptimalLDL 100-129 mg/dL Near or above optimalLDL 130-159 mg/dL Borderline highLDL 160-189 mg/dL HighLDL greater than 189 mg/dL Very high Cholesterol in VLDL Calc [Ma ss/Vol]Ordered By: Delano Francis on 09-22-2024 Cholesterol in VLDL [Mass/Vol] 10 mg/dL [facility] Cholesterol in VLDL [Mass/Vol] Cholesterol in VLDL [Mass/volume] in Serum or Plasma by calculation [facility] Creatinine [Mass/volume] in Serum or PlasmaOrdered By: Delano Francis on 09-22-2024 Creatinine [Mass/Vol] 0.73 mg/dL Normal 0.60-1.[address] [facility] Comment on above: Performed By: #### D JOSSE NATHAN T4, [id number], SEROTON, TEST F + T, T3R, THYGLOB AB, ESTRADIOL, TPO, SHBG, ESTRONE, INSULIN, PROG #### [facility] , #### T4F, TRISTEN, TSH3, A1C WTH eA, FILIBERTO, GLU, T3F #### [facility] [address] [place] [address] Creatinine [Mass/Vol] Creatinine [Mass/v olume] in Serum or Plasma 0.60-1.20 [facility] Employee Basic Metabolic [place] 09-22-2024 GFR/1.73 sq M.predicted MDRD (S/P/Bld) [Vol rate/Area] mL/min/{1.73_m2} Normal [facility] Comment on above: Performed By: #### D JOSSE NATHAN T4, [id number], SEROTON, TEST F + T, T3R, THYGLOB AB, ESTRADIOL, TPO, SHBG, ESTRONE, INSULIN, PROG #### [facility] , #### T4F, TRISTEN, TSH3, A1C WTH eA, FILIBERTO, GLU, T3F #### [facility] [address] Employee Complete Blood Coun ton 09-22-2024 Mean Corpuscular HGB Conc 34.2 g/dL Normal 32.0-35.0 [facility] Comment on above: Performed By: #### D HEAS, LC T4, [id number], SEROTON, TEST F + T, T3R, THYGLOB AB, ESTRADIOL, TPO, SHBG, ESTRONE, INSULIN, PROG #### [facility] , #### T4F, TRISTEN, TSH3, A1C WTH eA, FILIBERTO, GLU, T3F #### [address] NRBC% 0.0 /100{WBC} Normal 0-0.5 [facility] Comment on above: Performed By: #### D HEAS, LC T4, [id number], SEROTON, TEST F + T, T3R, THYGLOB AB, ESTRADIOL, TPO, SHBG, ESTRONE, INSULIN, PROG #### [facility] , #### T4F, TRISTEN, TSH3, A1C WTH eA, FILIBERTO, GLU, T3F #### [address] Employee Lipid Profileon LDL Cholesterol,Calculated 148 mg/dL High 0-100 [facility] Comment on above: Result Comment: LDL ATP III CLASSIFICATION LDL less than 100 mg/dL Optimal LDL 100-129 mg/dL Near or above optimal LDL 130-159 mg/dL Borderline high LDL 160-189 mg/dL High LDL greater than 189 mg/dL Very high Performed By: #### D HEAS, LC T4, [id number], SEROTON, TEST F + T, T3R, THYGLOB AB, ESTRADIOL, TPO, SHBG, ESTRONE, INSULIN, PROG #### [facility] , #### T4F, TRISTEN, TSH3, A1C WTH eA, FILIBERTO, GLU, T3F #### [facility] [address] Triglyceride w/Reflex 52 mg/dL Normal 0-149 [facility] Comment on above: Result Comment: TRIG ATP III CLASSIFICATION TRIG less than 150 mg/dL Normal TRIG 150-199 mg/dL Borderline high TRIG 200-500 mg/dL High TRIG greater than 500 mg/dL Very high Standard traceable to the Center for Disease Conrtrol and Prevention (CDC) test method. Performed By: #### D HEAS, LC T4, [id number], SEROTON, TEST F + T, T3R, THYGLOB AB, ESTRADIOL, TPO, SHBG, ESTRONE, INSULIN, PROG #### [facility] , #### T4F, TRISTEN, TSH3, A1C WTH eA, FILIBERTO, GLU, T3F #### [facility] [address] VLDL CHOLESTEROL 10 mg/dL Normal [facility] Comment on above: Performed By: #### D HEAS, LC T4, [id number], SEROTON, TEST F + T, T3R, THYGLOB AB, ESTRADIOL, TPO, SHBG, ESTRONE, INSULIN, PROG #### [facility] , #### T4F, TRISTEN, TSH3, A1C WTH eA, FILIBERTO, GLU, T3F #### [address] Employee Thyroid Stim Hormon lonnie 09-22-2024 Employee Thyroid Stim Hormone 2.30 u[iU]/mL Normal 0.45-5.33 [facility] Comment on above: Result Comment: PERF ORMED BY: [place] [address] PATHOLOGIST INTERVENTION SPECIALIST JOSE GOEL M.D. Performed By: #### D HEAS, LC T4, [id number], SEROTON, TEST F + T, T3R, THYGLOB AB, ESTRADIOL, TPO, SHBG, ESTRONE, INSULIN, PROG #### [facility] , #### T4F, TRISTEN, TSH3, A1C WTH eA, FILIBERTO, GLU, T3F #### [facility] [address] [place] [address] [place] Eosinophils Auto (Bld) [#/Vo l]Ordered By: Delano Francis on 09-22-2024 Eosinophils (Bld) [#/Vol] Automated eosinophil count 0.0-0.45 [facility] Eosinophils/100 WBC Auto (Bl d)Ordered By: Delano Francis on 09-22-2024 Eosinophils/100 WBC (Bld) Automated eosinophil % . [facility] [facility] Erythrocyte distribution wid th Auto (RBC) [Ratio]Ordered By: Delano Francis on 09-22-2024 Erythrocyte distribution width (RBC) [Ratio] Erythrocyte distribution width [Ratio] by Automated count 11.9-15.3 [facility] Erythrocyte distribution wid th [Ratio] by Automated countOrdered By: Delano Francis on 09-22-2024 Erythrocyte distribution width (RBC) [Ratio] 13.2 % Normal 11.9-15.3 [facility] Comment on above: Performed By: #### D HEAS, LC T4, [id number], SEROTON, TEST F + T, T3R, THYGLOB AB, ESTRADIOL, TPO, SHBG, ESTRONE, INSULIN, PROG #### [facility] , #### T4F, TRISTEN, TSH3, A1C WTH eA, FILIBERTO, GLU, T3F #### [facility] [address] [place] [address] [place] Erythrocytes [#/volume] in B lood by Automated countOrdered By: Delano Francis on 09-22-2024 RBC (Bld) [#/Vol] 3.91 10*6/uL Normal 3.60-5.00 [facility] Comment on above: Performed By: #### D HEAS, LC T4, [id number], SEROTON, TEST F + T, T3R, THYGLOB AB, ESTRADIOL, TPO, SHBG, ESTRONE, INSULIN, PROG #### [facility] , #### T4F, TRISTEN, TSH3, A1C WTH eA, FILIBERTO, GLU, T3F #### [facility] [address] [place] [address] [place] Glucose [Mass/volume] in Ser um or PlasmaOrdered By: Delano Francis on 09-22-2024 Glucose [Mass/Vol] 83 mg/dL Normal 70-100 [facility] Comment on above: Performed By: #### D VENITA, LC T4, [id number], SEROTON, TEST F + T, T3R, THYGLOB AB, ESTRADIOL, TPO, SHBG, ESTRONE, INSULIN, PROG #### [facility] , #### T4F, TRISTEN, TSH3, A1C WTH eA, FILIBERTO, GLU, T3F #### [facility] [address] [place] [address] [place] Glucose [Mass/Vol] Glucose [Mass/volume ] in Serum or Plasma 70-100 [facility] Hematocrit Auto (Bld) [Volum e fraction]Ordered By: Delano Francis on 09-22-2024 Hematocrit (Bld) [Volume fraction] Hematocrit [Volume Fraction] of Blood by Automated count 34.0-46.4 [facility] Hematocrit [Volume Fraction] of Blood by Automated countOrdered By: Delano Francis on 09-22-2024 Hematocrit (Bld) [Volume fraction] 35.9 % Normal 34.0-46.4 [facility] Comment on above: Performed By: #### Adria NATHAN, JOSSE T4, [id number], SEROTON, TEST F + T, T3R, THYGLOB AB, ESTRADIOL, TPO, SHBG, ESTRONE, INSULIN, PROG #### [facility] , #### T4F, TRISTEN, TSH3, A1C WTH eA, FILIBERTO, GLU, T3F #### [facility] [address] [place] [address] [place] Hemoglobin [Mass/volume] in BloodOrdered By: Delano Francis on 09-22-2024 Hemoglobin (Bld) [Mass/Vol] 12.3 g/dL Normal 11.8-15.4 [facility] Comment on above: Performed By: #### D HEAS, LC T4, [id number], SEROTON, TEST F + T, T3R, THYGLOB AB, ESTRADIOL, TPO, SHBG, ESTRONE, INSULIN, PROG #### [facility] , #### T4F, TRISTEN, TSH3, A1C WTH eA, FILIBERTO, GLU, T3F #### [facility] [address] Hemoglobin (Bld) [Mass/Vol] Hemoglobin [Mass/volume] in Blood 11.8-15.4 [facility] Leukocytes [#/volume] correc calvin for nucleated erythrocytes in Blood by Automated counOrdered By: Delano Francis on 09-22-2024 WBC corrected for nucl RBC Auto (Bld) [#/Vol] 5.1 10*3/uL 3.8-11.6 [facility] WBC corrected for nucl RBC Auto (Bld) [#/Vol] Leukocytes [#/volume] corrected for nucleated erythrocytes in Blood by Automated coun 3.8-11.6 [facility] Leukocytes [#/volume] in Blo od by Automated countOrdered By: Delano Francis on 09-22-2024 WBC (Bld) [#/Vol] 5.1 10*3/uL Normal 3.8-11.6 [facility] Comment on above: Performed By: #### D VENITA, JOSSE T4, [id number], SEROTON, TEST F + T, T3R, THYGLOB AB, ESTRADIOL, TPO, SHBG, ESTRONE, INSULIN, PROG #### [facility] , #### T4F, TRISTEN, TSH3, A1C WTH eA, FILIBERTO, GLU, T3F #### [facility] [address] [place] [address] Lymphocytes Auto (Bld) [#/Vo l]Ordered By: Delano Francis on 09-22-2024 Lymphocytes (Bld) [#/Vol] Lymphocytes [#/volume] in Blood by Automated count 1.00-4.8 [facility] Lymphocytes [#/volume] in Bl ood by Automated countOrdered By: Delano Francis on 09-22-2024 Lymphocytes (Bld) [#/Vol] 1.3 10*3/uL Normal 1.00-4.8 [facility] Comment on above: Performed By: #### D HEAS, LC T4, [id number], SEROTON, TEST F + T, T3R, THYGLOB AB, ESTRADIOL, TPO, SHBG, ESTRONE, INSULIN, PROG #### [facility] , #### T4F, TRISTEN, TSH3, A1C WTH eA, FILIBERTO, GLU, T3F #### [facility] [address] [place] [address] Lymphocytes/100 WBC Auto (Bl d)Ordered By: Delano Francis on 09-22-2024 Lymphocytes/100 WBC (Bld) Lymphocytes/100 leukocytes in Blood by Automated count . [facility] Lymphocytes/100 leukocytes i n Blood by Automated countOrdered By: Delano Francis on 09-22-2024 Lymphocytes/100 WBC (Bld) 25.3 % Normal . [facility] Comment on above: Performed By: #### D HEAS, LC T4, [id number], SEROTON, TEST F + T, T3R, THYGLOB AB, ESTRADIOL, TPO, SHBG, ESTRONE, INSULIN, PROG #### [facility] , #### T4F, TRISTEN, TSH3, A1C WTH eA, FILIBERTO, GLU, T3F #### [facility] [address] [place] [address] MCH Auto (RBC) [Entitic mass ]Ordered By: Delano Francis on 09-22-2024 MCH (RBC) [Entitic mass] MCH [Entitic mass] by Automated count 24.7-34.3 [facility] MCH [Entitic mass] by Automa calvin countOrdered By: Delano Francis on 09-22-2024 MCH (RBC) [Entitic mass] 31.4 pg Normal 24.7-34.3 [facility] Comment on above: Performed By: #### D HEAS, LC T4, [id number], SEROTON, TEST F + T, T3R, THYGLOB AB, ESTRADIOL, TPO, SHBG, ESTRONE, INSULIN, PROG #### [facility] , #### T4F, TRISTEN, TSH3, A1C WTH eA, FILIBERTO, GLU, T3F #### [facility] [address] MCHC Auto (RBC) [Mass/Vol]Or dered By: Delano Francis on 09-22-2024 MCHC (RBC) [Mass/Vol] 34.2 g/dL 32.0-35.[address] [facility] MCHC (RBC) [Mass/Vol] MCHC [Mass/volume] by Automated count 32.0-35.0 [facility] MCV Auto (RBC) [Entitic vol] Ordered By: Delano Francis on 09-22-2024 MCV (RBC) [Entitic vol] MCV [Entitic vol ume] by Automated count 80-100 [facility] MCV [Entitic volume] by Auto mated countOrdered By: Delano Francis on 09-22-2024 MCV (RBC) [Entitic vol] 91.7 fL Normal 80-100 [facility] Comment on above: Performed By: #### D HEAS, LC T4, [id number], SEROTON, TEST F + T, T3R, THYGLOB AB, ESTRADIOL, TPO, SHBG, ESTRONE, INSULIN, PROG #### [facility] , #### T4F, TRISTEN, TSH3, A1C WTH eA, FILIBERTO, GLU, T3F #### [facility] [address] Monocytes Auto (Bld) [#/Vol] Ordered By: Delano Francis on 09-22-2024 Monocytes (Bld) [#/Vol] Automated blood monocyte count 0.0-0.8 [facility] Monocytes/100 WBC Auto (Bld) Ordered By: Delano Francis on 09-22-2024 Monocytes/100 WBC (Bld) Automated monocyte % . [facility] Neutrophils Auto (Bld) [#/Vo l]Ordered By: Delano Francis on 09-22-2024 Neutrophils (Bld) [#/Vol] Neutrophils [#/volume] in Blood by Automated count 1.8-7.7 [facility] Neutrophils [#/volume] in Bl ood by Automated countOrdered By: Delano Francis on 09-22-2024 Neutrophils (Bld) [#/Vol] 3.2 10*3/uL Normal 1.8-7.7 [facility] Comment on above: Performed By: #### D HEAS, LC T4, [id number], SEROTON, TEST F + T, T3R, THYGLOB AB, ESTRADIOL, TPO, SHBG, ESTRONE, INSULIN, PROG #### [facility] , #### T4F, TRISTEN, TSH3, A1C WTH eA, FILIBERTO, GLU, T3F #### [facility] [address] Neutrophils/100 WBC Auto (Bl d)Ordered By: Delano Francis on 09-22-2024 Neutrophils/100 WBC (Bld) Automated neutrophil % . [facility] No Panel InformationOrdered By: Delano Francis on 09-22-2024 Estimated GFR (CKD-EPI) > 60.0 mL/Min [facility] Creatinine Clearance (Chem N/A [facility] Nucleated erythrocytes [Pres ence] in Blood by Automated countOrdered By: Delano Francis on 09-22-2024 Nucleated RBC Auto Ql (Bld) 0.0 /100{WBC} 0-0.5 [facility] Nucleated RBC Auto Ql (Bld) Nucleated erythrocytes [Presence] in Blood by Automated count 0-0.5 [facility] Platelet mean volume Auto (B ld) [Entitic vol]Ordered By: Delano Francis on 09-22-2024 Platelet mean volume (Bld) [Entitic vol] Platelet mean volume [Entitic volume] in Blood by Automated count 6.3-10.7 [facility] Platelet mean volume [Entiti c volume] in Blood by Automated countOrdered By: Delano Francis on 09-22-2024 Platelet mean volume (Bld) [Entitic vol] 7.3 fL Normal 6.3-10.7 [facility] Comment on above: Performed By: #### D HEAS, LC T4, [id number], SEROTON, TEST F + T, T3R, THYGLOB AB, ESTRADIOL, TPO, SHBG, ESTRONE, INSULIN, PROG #### [facility] , #### T4F, TRISTEN, TSH3, A1C WTH eA, FILIBERTO, GLU, T3F #### [facility] [address] [place] [address] [place] Platelets Auto (Bld) [#/Vol] Ordered By: Delano Francis on 09-22-2024 Platelets (Bld) [#/Vol] Platelets [#/vol ume] in Blood by Automated count 150-450 [facility] Platelets [#/volume] in Bloo d by Automated countOrdered By: Delano Francis on 09-22-2024 Platelets (Bld) [#/Vol] 328 10*3/uL Normal 150-450 [facility] Comment on above: Performed By: #### D HEAS, LC T4, [id number], SEROTON, TEST F + T, T3R, THYGLOB AB, ESTRADIOL, TPO, SHBG, ESTRONE, INSULIN, PROG #### [facility] , #### T4F, TRISTEN, TSH3, A1C WTH eA, FILIBERTO, GLU, T3F #### [facility] [address] [place] [address] [place] Potassium [Moles/volume] in Serum or PlasmaOrdered By: Delano Francis on 09-22-2024 Potassium [Moles/Vol] 4.5 mmol/L Normal 3.5-5.[address] [facility] Comment on above: Performed By: #### D HEAS, LC T4, [id number], SEROTON, TEST F + T, T3R, THYGLOB AB, ESTRADIOL, TPO, SHBG, ESTRONE, INSULIN, PROG #### [facility] , #### T4F, TRISTEN, TSH3, A1C WTH eA, FILIBERTO, GLU, T3F #### [facility] [address] [place] [address] [place] Potassium [Moles/Vol] Potassium [Moles/v olume] in Serum or Plasma 3.5-5.1 [facility] RBC Auto (Bld) [#/Vol]Ordere d By: Delano Francis on 09-22-2024 RBC (Bld) [#/Vol] Erythrocytes [#/volu me] in Blood by Automated count 3.60-5.00 [facility] Serum or plasma anion gap de terminationOrdered By: Delano Francis on 09-22-2024 Anion gap [Moles/Vol] 8.3 mmol/L Normal 6.0-15.[address] [facility] Comment on above: Performed By: #### D VENITA, JOSSE T4, [id number], SEROTON, TEST F + T, T3R, THYGLOB AB, ESTRADIOL, TPO, SHBG, ESTRONE, INSULIN, PROG #### [facility] , #### T4F, TRISTEN, TSH3, A1C WTH eA, FILIBERTO, GLU, T3F #### [facility] [address] Anion gap [Moles/Vol] Serum or plasma an ion gap determination 6.0-15.0 [facility] Serum or plasma high density lipoprotein (HDL) cholesterol measurementOrdered By: Delano Francis on 09-22-2024 Cholesterol in HDL [Mass/Vol] 59 mg/dL Normal 23-92 [facility] Comment on above: HDL CHOL ATP-III CLA SSIFICATION Cardiovascular RiskHDL > or equal to 60 mg/dL LOWHDL < 40 mg/dL HIGH Result Comment: HDL CHOL ATP-III CLASSIFICATION Cardiovascular Risk HDL > or equal to 60 mg/dL LOW HDL < 40 mg/dL HIGH Performed By: #### D VENITA, JOSSE T4, [id number], SEROTON, TEST F + T, T3R, THYGLOB AB, ESTRADIOL, TPO, SHBG, ESTRONE, INSULIN, PROG #### [facility] , #### T4F, TRISTEN, TSH3, A1C WTH eA, FILIBERTO, GLU, T3F #### [facility] [address] Serum or plasma total choles terol/high density lipoprotein (HDL) cholesterol mass ratOrdered By: Delano Francis on 09-22-2024 Cholesterol.total/Alivia sterol in HDL [Mass ratio] 3.7 {ratio} Normal <5.0 [facility] Comment on above: Performed By: #### D HEAS, LC T4, [id number], SEROTON, TEST F + T, T3R, THYGLOB AB, ESTRADIOL, TPO, SHBG, ESTRONE, INSULIN, PROG #### [facility] , #### T4F, TRISTEN, TSH3, A1C WTH eA, FILIBERTO, GLU, T3F #### [facility] [address] Cholesterol.total/Alivia sterol in HDL [Mass ratio] Serum or plasma total cholesterol/high density lipoprotein (HDL) cholesterol mass rat <5.0 [facility] Sodium [Moles/volume] in Ser um or PlasmaOrdered By: Delano Francis on 09-22-2024 Sodium [Moles/Vol] 138 mmol/L Normal 136-145 [facility] Comment on above: Performed By: #### D HEAS, LC T4, [id number], SEROTON, TEST F + T, T3R, THYGLOB AB, ESTRADIOL, TPO, SHBG, ESTRONE, INSULIN, PROG #### [facility] , #### T4F, TRISTEN, TSH3, A1C WTH eA, FILIBERTO, GLU, T3F #### [facility] [address] Sodium [Moles/Vol] Sodium [Moles/volume ] in Serum or Plasma 136-145 [facility] Thyrotropin [Units/volume] i n Serum or PlasmaOrdered By: Delano Francis on 09-22-2024 TSH Qn 2.30 m[IU]/L 0.45-5.33 [facility] TSH Qn Thyrotropin [Units/volume] in Serum or Plasma 0.45-5.33 [facility] Triglyceride [Mass/volume] i n Serum or PlasmaOrdered By: Delano Francis on 09-22-2024 Triglyceride [Mass/Vol] 52 mg/dL 0-149 [facility] Comment on above: TRIG ATP III CLASSIF ICATIONTRIG less than 150 mg/dL NormalTRIG 150-199 mg/dL Borderline highTRIG 200-500 mg/dL High TRIG greater than 500 mg/dL Very highStandard traceable to the Center for Disease Conrtrol and Prevention (CDC) test method. Triglyceride [Mass/Vol] Triglyceride [Mass/volume] in Serum or Plasma 0-149 [facility] Comment on above: TRIG ATP III CLASSIF ICATIONTRIG less than 150 mg/dL NormalTRIG 150-199 mg/dL Borderline highTRIG 200-500 mg/dL High TRIG greater than 500 mg/dL Very highStandard traceable to the Center for Disease Conrtrol and Prevention (CDC) test method. Urea nitrogen [Mass/volume] in Serum or PlasmaOrdered By: Delano Francis on 09-22-2024 Urea nitrogen [Mass/Vol] 9 mg/dL Normal 06-23 [facility] Comment on above: Performed By: #### D HESUE, JOSSE T4, [id number], SEROTON, TEST F + T, T3R, THYGLOB AB, ESTRADIOL, TPO, SHBG, ESTRONE, INSULIN, PROG #### [facility] , #### T4F, TRISTEN, TSH3, A1C WTH eA, FILIBERTO, GLU, T3F #### [facility] [address] Urea nitrogen [Mass/Vol] Urea nitrogen [Mass/volume] in Serum or Plasma 06-23 [facility] WBC Auto (Bld) [#/Vol]Ordere d By: Delano Francis on 09-22-2024 WBC (Bld) [#/Vol] Leukocytes [#/volume ] in Blood by Automated count 3.8-11.6 [facility] IGP,APTIMA HPV,AGE GDLNon AGE GDLN ACOG TESTING Note . [facility] Comment on above: TESTS RESULT FLAG UN ITS REF RANGE LAB Clinician Provided Cytology Information Source.............Cervix;Endocervix No. of containers..01 ThinPrep Vial Age Algo ACOG Lara... FLAG LEGEND: L-Low Normal,H-High Normal,LL-Alert Low,HH-Alert High <-Panic Low,>-Panic High,A-Abnormal,AA-Critical Abnormal Performed at: 01 =[address] [address] Ilana Heath MD, HPV APTIMA Negative Negative [facility] Comment on above: This nucleic acid am plification test detects fourteen high- risk HPV types (16,18,31,33,35,39,45,51,52,56,58,59,66,68) without differentiation. Performed at: =[address] [id number] Research Professor: Ilana Heath MD, Phone: [phone] Performed at: [address] [id number] Research Professor: Ilana Heath MD, Phone: [phone] IGP, APTIMA HPV, RFX 16/18,45 Note . [facility] Comment on above: TESTS RESULT FLAG UN ITS REF RANGE LAB DIAGNOSIS: 02 NEGATIVE FOR INTRAEPITHELIAL LESION OR MALIGNANCY. Specimen adequacy: 02 Satisfactory for evaluation. No endocervical component is identified. Performed by: 02 Chema Camargo Scale Assembly Set Up Worker (ASCP) . 02 Note: Note 02 The [...] High,A-Abnormal,AA-Critical Abnormal Performed at: 02 [facility] [address] [address] Ilana Heath MD, BRUSH-SPATULA [facility] 1,25 Dihydroxy Vit D Calcitr olon 01-07-2024 1,25 Dihydroxy Vit D Calcitrol 56.6 pg/mL Normal 24.8-81.5 [facility] Comment on above: Result Comment: Perf ormed at: BN - [facility] [address] [id number] Research Professor: Quinton Wolf MD, Phone: [phone] Performed By: #### D VENITA, JOSSE T4, [id number], SEROTON, TEST F + T, T3R, THYGLOB AB, ESTRADIOL, TPO, SHBG, ESTRONE, INSULIN, PROG #### [facility] , #### T4F, TRISTEN, TSH3, A1C WTH eA, FILIBERTO, GLU, T3F #### [facility] [address] A1C with Estimated Average G luon 01-07-2024 Glucose [Mass/Vol] 105 mg/dL Normal [facility] Comment on above: Result Comment: PERF ORMED BY: [address] [place] [address] PATHOLOGIST INTERVENTION SPECIALIST JOSE GOEL M.D. Performed By: #### D VENITA, LC T4, [id number], SEROTON, TEST F + T, T3R, THYGLOB AB, ESTRADIOL, TPO, SHBG, ESTRONE, INSULIN, PROG #### [facility] , #### T4F, TRISTEN, TSH3, A1C WTH eA, FILIBERTO, GLU, T3F #### [address] Antithyroglobulin Abon 01-07 Antithyroglobulin Ab <1.0 Normal 0.0-0.9 [facility] Comment on above: Result Comment: Thyr oglobulin Antibody measured by [employer] Performed at: - [facility] [id number] Research Professor: Baudilio Leyva PhD, Phone: [phone] Performed By: #### D VENITA, LC T4, [id number], SEROTON, TEST F + T, T3R, THYGLOB AB, ESTRADIOL, TPO, SHBG, ESTRONE, INSULIN, PROG #### [facility] , #### T4F, TRISTEN, TSH3, A1C WTH eA, FILIBERTO, GLU, T3F #### [address] Cortisolon 01-07-2024 Cortisol 6.8 ug/dL Normal [facility] Comment on above: Result Comment: Refe rence range: AM 6 - 24 ug/dl PM <10 ug/dl [facility] toolsmith and method: [employer] DXI, POLYCLONAL ANTIBODY CORTISOL ASSAY. PERFORMED BY: [address] [place] [address] PATHOLOGIST INTERVENTION SPECIALIST JOSE GOEL M.D. Performed By: #### D HEAS, LC T4, [id number], SEROTON, TEST F + T, T3R, THYGLOB AB, ESTRADIOL, TPO, SHBG, ESTRONE, INSULIN, PROG #### [facility] , #### T4F, TRISTEN, TSH3, A1C WTH eA, FILIBERTO, GLU, T3F #### [facility] [address] [place] [id number] [facility] Dehydroepiandrosterone Sulfa teOrdered By: Deisy Villar on 01-07-2024 Dehydroepiandrosterone Sulfate 174.0 ug/dL Normal 84.8-378.0 [facility] Comment on above: Performed By: #### D HEAS, LC T4, [id number], SEROTON, TEST F + T, T3R, THYGLOB AB, ESTRADIOL, TPO, SHBG, ESTRONE, INSULIN, PROG #### [facility] , #### T4F, TRISTEN, TSH3, A1C WTH eA, FILIBERTO, GLU, T3F #### [facility] [address] [place] [id number] [facility] Estradiolon 01-07-2024 Estradiol 300.0 pg/mL Normal . [facility] Comment on above: Result Comment: Adul t Female Range Follicular phase 12.5 - 166.0 Ovulation phase 85.8 - 498.0 Luteal phase 43.8 - 211.0 Postmenopausal <6.0 - 54.7 1st trimester 215.0 - >4300.0 Elías ECL[employer] methodology Performed By: #### D HEAS, LC T4, [id number], SEROTON, TEST F + T, T3R, THYGLOB AB, ESTRADIOL, TPO, SHBG, ESTRONE, INSULIN, PROG #### [facility] , #### T4F, TRISTEN, TSH3, A1C WTH eA, FILIBERTO, GLU, T3F #### [facility] [address] [place] [id number] [facility] Estrone, Serumon 01-07-2024 Estrone, Serum 46 pg/mL Normal 27-231 [facility] Comment on above: Result Comment: Rang e Adult (Premenopausal) 27 - 231 Menstrual Cycle (1-10 days) 19 - 149 Menstrual Cycle (11-20 days) 32 - 176 Menstrual Cycle (21-30 days) 37 - 200 Performed at: [address] [id number] Research Professor: Quinton Wolf MD, Phone: [phone] Performed By: #### D VNEITA, LC T4, [id number], SEROTON, TEST F + T, T3R, THYGLOB AB, ESTRADIOL, TPO, SHBG, ESTRONE, INSULIN, PROG #### [facility] , #### T4F, TRISTEN, TSH3, A1C WTH eA, FILIBERTO, GLU, T3F #### [facility] [address] [place] [address] [place] Ferritin [Mass/volume] in Se rum or PlasmaOrdered By: Deisy Villar on 01-07-2024 Ferritin [Mass/Vol] 44.8 ng/mL Normal 11.0-306.8 [facility] Comment on above: Performed By: #### D VENITA, LC T4, [id number], SEROTON, TEST F + T, T3R, THYGLOB AB, ESTRADIOL, TPO, SHBG, ESTRONE, INSULIN, PROG #### [facility] , #### T4F, TRISTEN, TSH3, A1C WTH eA, FILIBERTO, GLU, T3F #### [facility] [address] [place] [address] [place] Free testosterone measuremen t by LC-MS/MSOrdered By: Deisy Villar on 01-07-2024 Testosterone Free [Mass/Vol] 0.3 pg/mL 0.0-4.2 [facility] Comment on above: Performed at: [address] [id number] Director: Baudilio Leyva PhD, Phone: [phone] at: [address] [id number] Director: Quinton Wolf MD, Phone: [phone] Glucose [Mass/volume] in Ser um or PlasmaOrdered By: Deisy Villar on 01-07-2024 Glucose [Mass/Vol] 84 mg/dL Normal 70-100 [facility] Comment on above: ADA recommended refe rence rangeRandom Glucose Reference Range is dependent on time and content of last meal. Glucose of more than 200 mg/dL in a nonstressed, ambulatory subject supports the diagnosis of Diabetes Mellitus. Result Comment: [place] om Glucose Reference Range is dependent on time and content of last meal. Glucose of more than 200 mg/dL in a nonstressed, ambulatory subject supports the diagnosis of Diabetes Mellitus. ADA recommended reference range Performed By: #### D JOSSE NATHAN T4, [id number], SEROTON, TEST F + T, T3R, THYGLOB AB, ESTRADIOL, TPO, SHBG, ESTRONE, INSULIN, PROG #### [facility] , #### T4F, TRISTEN, TSH3, A1C WTH eA, FILIBERTO, GLU, T3F #### [facility] [address] Glucose mean value [Mass/vol ume] in Blood Estimated from glycated hemoglobinOrdered By: Deisy Villar on 01-07-2024 Average glucose Estimated from glycated hemoglobin (Bld) [Mass/Vol] 105 mg/dL [facility] Hemoglobin A1c percentageOrd ered By: Deisy Villar on 01-07-2024 HbA1c (Bld) [Mass fraction] 5.3 % Normal 4.3-5.6 [facility] Comment on above: Increased risk for d iabetes: 5.7 - 6.4diabetes: >6.4glycemic control for adults with diabetes: <7.0 Result Comment: Incr eased risk for diabetes: 5.7 - 6.4 diabetes: >6.4 glycemic control for adults with diabetes: <7.0 Performed By: #### D VENITA, JOSSE T4, [id number], SEROTON, TEST F + T, T3R, THYGLOB AB, ESTRADIOL, TPO, SHBG, ESTRONE, INSULIN, PROG #### [facility] , #### T4F, TRISTEN, TSH3, A1C WTH eA, FILIBERTO, GLU, T3F #### [facility] [address] Insulinon 01-07-2024 Insulin 4.5 u[iU]/mL Normal 2.6-24.9 [facility] Comment on above: Result Comment: Perf ormed at: [address] [id number] Research Professor: Baudilio Leyva PhD, Phone: [phone] Performed By: #### D HEAS, LC T4, [id number], SEROTON, TEST F + T, T3R, THYGLOB AB, ESTRADIOL, TPO, SHBG, ESTRONE, INSULIN, PROG #### [facility] , #### T4F, TRISTEN, TSH3, A1C WTH eA, FILIBERTO, GLU, T3F #### [address] [facility] Thyroxine (T4)on T4 [Mass/Vol] 8.2 ug/dL Normal 4.5-12.0 [facility] Comment on above: Performed By: #### D HEAS, LC T4, [id number], SEROTON, TEST F + T, T3R, THYGLOB AB, ESTRADIOL, TPO, SHBG, ESTRONE, INSULIN, PROG #### [facility] , #### T4F, TRISTEN, TSH3, A1C WTH eA, FILIBERTO, GLU, T3F #### [address] No Panel InformationOrdered By: Deisy Villar on 01-07-2024 Free Thyroxine (T4) Direct 8.2 ug/dL 4.5-12.0 [facility] Reverse Triiodothyronine (T3) 18.9 ng/dL 9.2-24.1 [facility] Comment on above: This test was develo ped and its performance characteristicsdetermined by [facility]. It has not been cleared orapproved by the Food and Drug Administration.Performed at: [address] [id number] Director: Quinton Wolf MD, Phone: [phone] Sex Hormone Binding Globulin 95.4 nmol/L 24.6-122.0 [facility] Comment on above: Performed at: [facility] [id number] [place], [place] [id number] Director: Baudilio Leyva PhD, Phone: [phone] Plasma serotonin measurement (mass/volume)Ordered By: Deisy Villar on 01-07-2024 Serotonin (P) [Mass/Vol] 71 ng/mL [facility] Comment on above: This test was develo ped and its performance characteristicsdetermined by [facility]. It has not been cleared orapproved by the Food and Drug Administration.Performed at: [address] [id number] Director: Quinton Wolf MD, Phone: [phone] Progesteroneon 01-07-2024 Progesterone 0.2 ng/mL Normal . [facility] Comment on above: Result Comment: Foll icular phase 0.1 - 0.9 Luteal phase 1.8 - 23.9 Ovulation phase 0.1 - 12.0 First trimester 11.0 - 44.3 Second trimester 25.4 - 83.3 Third trimester 58.7 - 214.0 Postmenopausal 0.0 - 0.1 Performed By: #### D HEAS, LC T4, [id number], SEROTON, TEST F + T, T3R, THYGLOB AB, ESTRADIOL, TPO, SHBG, ESTRONE, INSULIN, PROG #### [facility] , #### T4F, TRISTEN, TSH3, A1C WTH eA, FILIBERTO, GLU, T3F #### [facility] [address] [place] [address] Random cortisol measurementO rdered By: Deisy Villar on 01-07-2024 Cortisol [Mass/Vol] 6.8 ug/dL [facility] Comment on above: [facility] toolsmith and method:HELGA UNICEL DXI, POLYCLONAL ANTIBODY CORTISOL ASSAY.Reference range: AM 6 - 24 ug/dl PM <10 ug/dl Serotonin, Serumon 4 Serotonin, Serum 71 ng/mL Normal [facility] Comment on above: Result Comment: This test was developed and its performance characteristics determined by [facility]. It has not been cleared or approved by the Food and Drug Administration. Performed at: [facility] - [facility] [id number] Research Professor: Quinton Wolf MD, Phone: [phone] PERFORMED BY: [facility] [address] [place] [address] PATHOLOGIST INTERVENTION SPECIALIST JOSE GOEL M.D. Performed By: #### D HEAS, LC T4, [id number], SEROTON, TEST F + T, T3R, THYGLOB AB, ESTRADIOL, TPO, SHBG, ESTRONE, INSULIN, PROG #### [facility] , #### T4F, TRISTEN, TSH3, A1C WTH eA, FILIBERTO, GLU, T3F #### [facility] [address] Serum estrone measurementOrd ered By: Deisy Villar on 01-07-2024 E1 [Mass/Vol] 46 pg/mL 27-231 [facility] Comment on above: Range Adult (Premeno pausal) 27 - 231 Menstrual Cycle (1-10 days) 19 - 149 Menstrual Cycle (11-20 days) 32 - 176 Menstrual Cycle (21-30 days) 37 - 200Performed at: [facility] [address] [id number] Director: Quinton Wolf MD, Phone: [phone] Serum or plasma calcitriol m easurement (mass/volume)Ordered By: Deisy Villar on 01-07-2024 1,25-dihydroxyvitamin D3 [Mass/Vol] 56.6 pg/mL 24.8-81.5 [facility] Comment on above: Performed at: - [facility] [address] [id number] Director: Quinton Wolf MD, Phone: [phone] Serum or plasma estradiol (E 2) measurement (mass/volume)Ordered By: Diesy Villar on 01-07-2024 E2 [Mass/Vol] 300.0 pg/mL . [facility] Comment on above: Adult Female Range F ollicular phase 12.5 - 166.0 Ovulation phase 85.8 - 498.0 Luteal phase 43.8 - 211.0 Postmenopausal <6.0 - 54.7 1st trimester 215.0 - >4300.0Roche ECLIA methodology Serum or plasma insulin kevin urement (units/volume)Ordered By: Deisy Villar on 01-07-2024 Insulin Qn 4.5 u[iU]/mL 2.6-24.9 [facility] Comment on above: Performed at: [facility] [address] [id number] Director: Baudilio Leyva PhD, Phone: [phone] Serum or plasma progesterone measurement (mass/volume)Ordered By: Deisy Villar on 01-07-2024 Progesterone [Mass/Vol] 0.2 ng/mL . [facility] Comment on above: Follicular phase 0.1 - 0.9 Luteal phase 1.8 - 23.9 Ovulation phase 0.1 - 12.0 First trimester 11.0 - 44.3 Second trimester 25.4 - 83.3 Third trimester 58.7 - 214.0 Postmenopausal 0.0 - 0.1 Serum or plasma thyroglobuli n antibody assay (units/volume)Ordered By: Deisy Villar on 01-07-2024 Thyroglobulin Ab Qn [IU]/mL 0.0-0.9 [facility] Comment on above: Thyroglobulin Antibo dy measured by Helga CoulterMethodologyPerformed at: [email or web address] [address] [id number] Director: Baudilio Leyva PhD, Phone: [phone] Serum or plasma thyroperoxid ase antibody assay (units/volume)Ordered By: Deisy Villar on 01-07-2024 TPO Ab Qn [IU]/mL 0-34 [facility] Comment on above: Performed at: [facility] [id number] [place] [id number] Director: Baudilio Leyva PhD, Phone: [phone] Sex Hormone Binding Globulin on 01-07-2024 Sex Hormone Binding Globulin 95.4 Normal 24.6-122.0 [facility] Comment on above: Result Comment: Perf ormed at: [email or web address] [id number] [place], [place] [id number] Research Professor: Baudilio Leyva PhD, Phone: [phone] Performed By: #### D HEAS, LC T4, [id number], SEROTON, TEST F + T, T3R, THYGLOB AB, ESTRADIOL, TPO, SHBG, ESTRONE, INSULIN, PROG #### [facility] , #### T4F, TRISTEN, TSH3, A1C WTH eA, FILIBERTO, GLU, T3F #### [facility] [address] Testosterone Free and TotalO rdered By: Deisy Villar on 01-07-2024 Testosterone [Mass/Vol] 16 ng/dL Normal 8-60 [facility] Comment on above: Performed By: #### D HEAS, LC T4, [id number], SEROTON, TEST F + T, T3R, THYGLOB AB, ESTRADIOL, TPO, SHBG, ESTRONE, INSULIN, PROG #### [facility] , #### T4F, TRISTEN, TSH3, A1C WTH eA, FILIBERTO, GLU, T3F #### [facility] [address] [place] [address] [place] Testosterone Free and Totalo n 01-07-2024 Testosterone,Free 0.3 pg/mL Normal 0.0-4.2 [facility] Comment on above: Result Comment: Perf ormed at: - [facility] [id number] Research Professor: Baudilio Leyva PhD, Phone: [phone] Performed at: [facility] [id number] Research Professor: Quinton Wolf MD, Phone: [phone] Performed By: #### D HEAS, LC T4, [id number], SEROTON, TEST F + T, T3R, THYGLOB AB, ESTRADIOL, TPO, SHBG, ESTRONE, INSULIN, PROG #### [facility] , #### T4F, TRISTEN, TSH3, A1C WTH eA, FILIBERTO, GLU, T3F #### [address] Thyroid Peroxidase Antibodie son 01-07-2024 Thyroid Peroxidase Antibodies <9 Normal 0-34 [facility] Comment on above: Result Comment: Perf ormed at: - [facility] [address] [id number] Research Professor: Baudilio Leyva PhD, Phone: [phone] Performed By: #### D HEAS, LC T4, [id number], SEROTON, TEST F + T, T3R, THYGLOB AB, ESTRADIOL, TPO, SHBG, ESTRONE, INSULIN, PROG #### [facility] , #### T4F, TRISTEN, TSH3, A1C WTH eA, FILIBERTO, GLU, T3F #### [address] Thyrotropin [Units/volume] i n Serum or PlasmaOrdered By: Deisy Villar on 01-07-2024 TSH Qn 1.80 m[IU]/L Normal 0.45-5.33 [facility] Comment on above: Performed By: #### D HEAS, LC T4, [id number], SEROTON, TEST F + T, T3R, THYGLOB AB, ESTRADIOL, TPO, SHBG, ESTRONE, INSULIN, PROG #### [facility] , #### T4F, TRISTEN, TSH3, A1C WTH eA, FILIBERTO, GLU, T3F #### [facility] [address] [place] [address] Thyroxine (T4) free [Mass/vo lume] in Serum or PlasmaOrdered By: Deisy Villar on 01-07-2024 Free T4 [Mass/Vol] 0.88 ng/dL Normal 0.61-1.12 [facility] Comment on above: Performed By: #### D HEAS, LC T4, [id number], SEROTON, TEST F + T, T3R, THYGLOB AB, ESTRADIOL, TPO, SHBG, ESTRONE, INSULIN, PROG #### [facility] , #### T4F, TRISTEN, TSH3, A1C WTH eA, FILIBERTO, GLU, T3F #### [facility] [address] [place] [address] [place] Triiodothyronine (T3) Freeon 01-07-2024 Triiodothyronine (T3) Free 3.90 pg/mL Normal 2.50-3.90 [facility] Comment on above: Result Comment: PERF ORMED BY: [place] [address] PATHOLOGIST INTERVENTION SPECIALIST JOSE GOEL M.D. Performed By: #### Adria NATHAN, LC T4, [id number], SEROTON, TEST F + T, T3R, THYGLOB AB, ESTRADIOL, TPO, SHBG, ESTRONE, INSULIN, PROG #### [facility] , #### T4F, TRISTEN, TSH3, A1C WTH eA, FILIBERTO, GLU, T3F #### [facility] [address] [id number] [place] Triiodothyronine (T3) Free [ Mass/volume] in Serum or PlasmaOrdered By: Deisy Villar on 01-07-2024 Free T3 [Mass/Vol] 3.90 pg/mL 2.50-3.90 [facility] Triiodothyronine (T3) Revers lonnie 01-07-2024 Triiodothyronine (T3) Reverse 18.9 ng/dL Normal 9.2-24.1 [facility] Comment on above: Result Comment: This test was developed and its performance characteristics determined by [facility]. It has not been cleared or approved by the Food and Drug Administration. Performed at: [address] [id number] Research Professor: Quinton Wolf MD, Phone: [phone] Performed By: #### Adria NATHAN, LC T4, [id number], SEROTON, TEST F + T, T3R, THYGLOB AB, ESTRADIOL, TPO, SHBG, ESTRONE, INSULIN, PROG #### [facility] , #### T4F, TRISTEN, TSH3, A1C WTH eA, FILIBERTO, GLU, T3F #### [facility] [address] [id number] [place] Alanine aminotransferase [En zymatic activity/volume] in Serum or PlasmaOrdered By: Delano Francis on 09-17-2023 ALT [Catalytic activity/Vol] 20 U/L 7-52 [facility] Albumin [Mass/volume] in Ser um or Plasma by Bromocresol green (BCG) dye binding methoOrdered By: Delano Francis on 09-17-2023 Albumin BCG dye [Mass/Vol] 4.3 g/dL 3.5-5.7 [facility] Alkaline phosphatase [Enzyma tic activity/volume] in Serum or PlasmaOrdered By: Delano Francis on 09-17-2023 ALP [Catalytic activity/Vol] 62 U/L 34-104 [facility] Aspartate aminotransferase [ Enzymatic activity/volume] in Serum or PlasmaOrdered By: Delano Francis on 09-17-2023 AST [Catalytic activity/Vol] 22 U/L 13-39 [facility] Basophils Auto (Bld) [#/Vol] Ordered By: Delano Francis on 09-17-2023 Basophils (Bld) [#/Vol] 0.0 10*3/uL 0.0-0.2 [facility] Basophils/100 WBC Auto (Bld) Ordered By: Delano Francis on 09-17-2023 Basophils/100 WBC (Bld) 0.4 % . [facility] Bilirubin.total [Mass/volume ] in Serum or PlasmaOrdered By: Delano Francis on 09-17-2023 Bilirubin [Mass/Vol] 0.7 mg/dL 0.3-1.0 [facility] Calcium [Mass/volume] in Ser um or PlasmaOrdered By: Delano Francis on 09-17-2023 Calcium [Mass/Vol] 9.4 mg/dL 8.6-10.3 [facility] Carbon dioxide, total [Moles /volume] in Serum or PlasmaOrdered By: Delano Francis on 09-17-2023 CO2 [Moles/Vol] 26.2 mmol/L 21.0-31.0 [facility] Chloride [Moles/volume] in S stevo or PlasmaOrdered By: Delano Francis on 09-17-2023 Chloride [Moles/Vol] 102 mmol/L 98-107 [facility] Cholesterol [Mass/volume] in Serum or PlasmaOrdered By: Delano Francis on 09-17-2023 Cholesterol [Mass/Vol] 214 mg/dL 140-200 [facility] Comment on above: Chol less than 200 m g/dl low riskChol 201-239 mg/dl borderline riskChol 240 mg/dl and greater high risk Cholesterol in LDL Calc [Mas s/Vol]Ordered By: Delano Francis on 09-17-2023 Cholesterol in LDL [Mass/Vol] 161 mg/dL 0-100 [facility] Comment on above: LDL ATP III CLASSIFI CATIONLDL less than 100 mg/dL OptimalLDL 100-129 mg/dL Near or above optimalLDL 130-159 mg/dL Borderline highLDL 160-189 mg/dL HighLDL greater than 189 mg/dL Very high Cholesterol in VLDL Calc [Ma ss/Vol]Ordered By: Delano Francis on 09-17-2023 Cholesterol in VLDL [Mass/Vol] 9 mg/dL [facility] Creatinine [Mass/volume] in Serum or PlasmaOrdered By: Delano Francis on 09-17-2023 Creatinine [Mass/Vol] 0.79 mg/dL 0.60-1.[address] [facility] Eosinophils Auto (Bld) [#/Vo l]Ordered By: Delano Francis on 09-17-2023 Eosinophils (Bld) [#/Vol] 0.1 10*3/uL 0.0-0.45 [facility] Eosinophils/100 WBC Auto (Bl d)Ordered By: Delano Francis on 09-17-2023 Eosinophils/100 WBC (Bld) 0.9 % . [facility] Erythrocyte distribution wid th Auto (RBC) [Ratio]Ordered By: Delano Francis on 09-17-2023 Erythrocyte distribution width (RBC) [Ratio] 12.4 % 11.9-15.3 [facility] Globulin Calc (S) [Mass/Vol] Ordered By: Delano Francis on 09-17-2023 Globulin (S) [Mass/Vol] 2.5 g/dL [facility] Glucose [Mass/volume] in Ser um or PlasmaOrdered By: Delano Francis on 09-17-2023 Glucose [Mass/Vol] 75 mg/dL 70-100 [facility] Hematocrit Auto (Bld) [Volum e fraction]Ordered By: Delano Francis on 09-17-2023 Hematocrit (Bld) [Volume fraction] 34.2 % 34.0-46.4 [facility] Hemoglobin [Mass/volume] in BloodOrdered By: Delano Francis on 09-17-2023 Hemoglobin (Bld) [Mass/Vol] 11.8 g/dL 11.8-15.4 [facility] Leukocytes [#/volume] correc calvin for nucleated erythrocytes in Blood by Automated counOrdered By: Delano Francis on 09-17-2023 WBC corrected for nucl RBC Auto (Bld) [#/Vol] 5.9 10*3/uL 3.8-11.6 [facility] Lymphocytes Auto (Bld) [#/Vo l]Ordered By: Delano Francis on 09-17-2023 Lymphocytes (Bld) [#/Vol] 1.8 10*3/uL 1.00-4.8 [facility] Lymphocytes/100 WBC Auto (Bl d)Ordered By: Delano Francis on 09-17-2023 Lymphocytes/100 WBC (Bld) 30.5 % . [facility] MCH Auto (RBC) [Entitic mass ]Ordered By: Delano Francis on 09-17-2023 MCH (RBC) [Entitic mass] 31.8 pg 24.7-34.3 [facility] MCHC Auto (RBC) [Mass/Vol]Or dered By: Delano Francis on 09-17-2023 MCHC (RBC) [Mass/Vol] 34.4 g/dL 32.0-35.[address] [facility] MCV Auto (RBC) [Entitic vol] Ordered By: Delano Francis on 09-17-2023 MCV (RBC) [Entitic vol] 92.5 fL 80-100 [facility] Monocytes Auto (Bld) [#/Vol] Ordered By: Delano Francis on 09-17-2023 Monocytes (Bld) [#/Vol] 0.5 10*3/uL 0.0-0.8 [facility] Monocytes/100 WBC Auto (Bld) Ordered By: Delano Francis on 09-17-2023 Monocytes/100 WBC (Bld) 9.2 % . [facility] Neutrophils Auto (Bld) [#/Vo l]Ordered By: Delano Francis on 09-17-2023 Neutrophils (Bld) [#/Vol] 3.5 10*3/uL 1.8-7.7 [facility] Neutrophils/100 WBC Auto (Bl d)Ordered By: Delano Francis on 09-17-2023 Neutrophils/100 WBC (Bld) 59.0 % . [facility] No Panel InformationOrdered By: Delano Francis on 09-17-2023 Estimated GFR (CKD-EPI) > 60.0 mL/Min [facility] Creatinine Clearance (Chem N/A [facility] Nucleated erythrocytes [Pres ence] in Blood by Automated countOrdered By: Delano Francis on 09-17-2023 Nucleated RBC Auto Ql (Bld) 0.2 /100{WBC} 0-0.5 [facility] Platelet mean volume Auto (B ld) [Entitic vol]Ordered By: Delano Francis on 09-17-2023 Platelet mean volume (Bld) [Entitic vol] 8.1 fL 6.3-10.7 [facility] Platelets Auto (Bld) [#/Vol] Ordered By: Delano Francis on 09-17-2023 Platelets (Bld) [#/Vol] 250 10*3/uL 150-450 [facility] Potassium [Moles/volume] in Serum or PlasmaOrdered By: Delano Farncis on 09-17-2023 Potassium [Moles/Vol] 4.0 mmol/L 3.5-5.[address] [facility] Protein [Mass/volume] in Ser um or PlasmaOrdered By: Delano Francis on 09-17-2023 Protein [Mass/Vol] 6.8 g/dL 6.4-8.9 [facility] RBC Auto (Bld) [#/Vol]Ordere d By: Delano Francis on 09-17-2023 RBC (Bld) [#/Vol] 3.70 10*6/uL 3.60-5.00 [facility] Serum or plasma albumin/glob ulin mass ratioOrdered By: Delano Francis on 09-17-2023 Albumin/Globulin [Mass ratio] 1.7 {ratio} [facility] Serum or plasma anion gap de terminationOrdered By: Delano Francis on 09-17-2023 Anion gap [Moles/Vol] 10.8 mmol/L 6.0-15.0 [facility] Serum or plasma high density lipoprotein (HDL) cholesterol measurementOrdered By: Delano Francis on 09-17-2023 Cholesterol in HDL [Mass/Vol] 43 mg/dL 23- [facility] Comment on above: HDL CHOL ATP-III CLA SSIFICATION Cardiovascular RiskHDL > or equal to 60 mg/dL LOWHDL < 40 mg/dL HIGH Serum or plasma total choles terol/high density lipoprotein (HDL) cholesterol mass ratOrdered By: Delano Francis on 09-17-2023 Cholesterol.total/Alivia sterol in HDL [Mass ratio] 5.0 {ratio} <5.0 [facility] Sodium [Moles/volume] in Ser um or PlasmaOrdered By: Delano Francis on 09-17-2023 Sodium [Moles/Vol] 135 mmol/L 136-145 [facility] Thyrotropin [Units/volume] i n Serum or PlasmaOrdered By: Delano Francis on 09-17-2023 TSH Qn 1.04 m[IU]/L 0.45-5.33 [facility] Triglyceride [Mass/volume] i n Serum or [...] 09-17-2023 Urea nitrogen [Mass/Vol] 7 mg/dL 7- [facility] WBC Auto (Bld) [#/Vol]Ordere d By: Delano Francis on 09-17-2023 WBC (Bld) [#/Vol] 5.9 10*3/uL 3.8-11.6 [facility] Mononucleosis Test, Qualon 1 Heterophile Ab LA Ql (S) Negative Pulse 8 Other Quick Strepon 09-26-2022 S. pyogenes Org specific cx Ql (Throat) Negative [facility] DotBlu Other Quick Strep Pulse 8 Other SARS-CoV-2 (COVID-19) RNA NA A+probe Ql (Resp)on 09-26-2022 SARS-CoV-2 (COVID-19) RNA ROB+probe Ql (Unsp spec) Negative Pulse 8 Other PAP ACOG PANEL 2: 30 to 65on 09-01-2022 . . Normal [facility] Comment on above: Result Comment: Perf ormed at: WB Performed By: #### [id number] #### [facility] [address] [place] [address] Dr. Zonia Zhang Age Gdln ACOG Testing 30-65 Normal [facility] Comment on above: Performed By: #### [id number] #### [facility] [address] [address] [address] Zonia Zhang DIAGNOSIS: Comment [facility] Comment on above: Result Comment: NEGA TIVE FOR INTRAEPITHELIAL LESION OR MALIGNANCY. Performed at: WB Performed By: #### [id number] #### [facility] [address] [address] [address] Zonia Zhang HPV Aptima Negative Normal Negative [facility] Comment on above: Result Comment: This nucleic acid amplification test detects fourteen high-risk HPV types (16,18,31,33,35,39,45,51,52,56,58,59,66,68) without differentiation. Performed at: =G Performed By: #### [id number] #### [facility] [address] [address] [address] Zonia Zhang Methodology: Comment [facility] Comment on above: Result Comment: This liquid based ThinPrep(R) pap test was screened with the use of an image guided system. Performed at: WB Performed By: #### [id number] #### [facility] [address] [place] [address] Dr. Zonia Zhang Note: Comment Normal [facility] Comment on above: Result Comment: The Pap smear is a screening test designed to aid in the detection of premalignant and malignant conditions of the uterine cervix. It is not a diagnostic procedure and should not be used as the sole means of detecting cervical cancer. Both false-positive and false-negative reports do occur. . Performed at: WB Performed By: #### [id number] #### [facility] [address] [place] [address] Dr. Zonia Zhang Performed by: Comment Normal [facility] Comment on above: Result Comment: Negin Tomas, Scale Assembly Set Up Worker (ASCP) Performed at: WB Performed By: #### [id number] #### [facility] [address] [place] [address] Dr. Zonia Zhang Specimen adequacy: Comment Normal [facility] Comment on above: Result Comment: Sati sfactory for evaluation. Endocervical and/or squamous metaplastic cells (endocervical component) are present. Performed at: WB Performed By: #### [id number] #### [facility] [address] [place] [address] Dr. Zonia Zhang Basophils Auto (Bld) [#/Vol] Ordered By: Delano Francis on 08-07-2022 Basophils (Bld) [#/Vol] 0.0 10*3/uL 0.0-0.2 [facility] Basophils/100 WBC Auto (Bld) Ordered By: Delano Francis on 08-07-2022 Basophils/100 WBC (Bld) 0.5 % . [facility] Blood hemoglobin measurement (mass/volume)Ordered By: Delano Francis on 08-07-2022 Hemoglobin (Bld) [Mass/Vol] 12.7 g/dL 11.8-15.4 [facility] Blood leukocytes automated c ount (number/volume)Ordered By: Delano Francis on 08-07-2022 WBC (Bld) [#/Vol] 5.0 10*3/uL 4.5-11.0 [facility] Body fluid albumin measureme nt (mass/volume)Ordered By: Delano Francis on 08-07-2022 Albumin (Body fld) [Mass/Vol] 4.1 g/dL 3.2-5.5 [facility] Cholesterol [Mass/volume] in Serum or PlasmaOrdered By: Delano Francis on 08-07-2022 Cholesterol [Mass/Vol] 253 mg/dL 140-200 [facility] Comment on above: Chol less than 200 m g/dl low risk Chol 201-239 mg/dl borderline risk Chol 240 mg/dl and greater high risk Chol less than 200 m g/dl low riskChol 201-239 mg/dl borderline riskChol 240 mg/dl and greater high risk Cholesterol in LDL Calc [Mas s/Vol]Ordered By: Delano Francis on 08-07-2022 Cholesterol in LDL [Mass/Vol] 181 mg/dL 0-100 [facility] Comment on above: LDL ATP III [...] in VLDL [Mass/Vol] 12 mg/dL [facility] Creatinine and Glomerular fi ltration rate.predicted panel (S/P/Bld)Ordered By: Delano Francis on 08-07-2022 Creatinine [Mass/Vol] 0.76 mg/dL 0.44-1.[address] [facility] Eosinophils Auto (Bld) [#/Vo l]Ordered By: Delano Francis on 08-07-2022 Eosinophils (Bld) [#/Vol] 0.1 10*3/uL 0.0-0.45 [facility] Eosinophils/100 WBC Auto (Bl d)Ordered By: Delano Francis on 08-07-2022 Eosinophils/100 WBC (Bld) 1.6 % . [facility] Erythrocyte distribution wid th Auto (RBC) [Ratio]Ordered By: Delano Francis on 08-07-2022 Erythrocyte distribution width (RBC) [Ratio] 12.6 % 11.9-15.3 [facility] Estimated glomerular filtrat ion rate (GFR) non- AmericanOrdered By: Delano Francis on 08-07-2022 GFR/1.73 sq M.predicted among non-blacks MDRD (S/P/Bld) [Vol rate/Area] > 60 mL/Min [facility] Globulin Calc (S) [Mass/Vol] Ordered By: Delano Francis on 08-07-2022 Globulin (S) [Mass/Vol] 2.3 g/dL [facility] Hematocrit Auto (Bld) [Volum e fraction]Ordered By: Delano Francis on 08-07-2022 Hematocrit (Bld) [Volume fraction] 37.5 % 34.0-46.4 [facility] - Chemistry and C hemistry - challengeOrdered By: Delano Francis on 08-07-2022 Glucose [Mass/Vol] 88 mg/dL 70-100 [facility] - Hematology and Cell countsOrdered By: Delano Francis on 08-07-2022 Nucleated RBC/100 WBC (Bld) [Ratio] 0.1 % 0-0.5 [facility] Lymphocytes Auto (Bld) [#/Vo l]Ordered By: Delano Francis on 08-07-2022 Lymphocytes (Bld) [#/Vol] 1.4 10*3/uL 1.00-4.8 [facility] Lymphocytes/100 WBC Auto (Bl d)Ordered By: Delano Francis on 08-07-2022 Lymphocytes/100 WBC (Bld) 28.1 % . [facility] MCH Auto (RBC) [Entitic mass ]Ordered By: Delano Francis on 08-07-2022 MCH (RBC) [Entitic mass] 31.8 pg 24.7-34.3 [facility] MCHC Auto (RBC) [Mass/Vol]Or dered By: Delano Francis on 08-07-2022 MCHC (RBC) [Mass/Vol] 33.8 g/dL 32.0-35.[address] [facility] MCV Auto (RBC) [Entitic vol] Ordered By: Delano Francis on 08-07-2022 MCV (RBC) [Entitic vol] 94.3 fL 80-100 [facility] Monocyte %Ordered By: Delano Francis on 08-07-2022 Monocyte % 60 mg/dL 35-149 [facility] Comment on above: TRIG ATP III [...] (Bld) [#/Vol] 0.5 10*3/uL 0.0-0.8 [facility] Monocytes/100 WBC Auto (Bld) Ordered By: Delano Francis on 08-07-2022 Monocytes/100 WBC (Bld) 10.1 % . [facility] Neutrophils Auto (Bld) [#/Vo l]Ordered By: Delano Francis on 08-07-2022 Neutrophils (Bld) [#/Vol] 3.0 10*3/uL 1.8-7.7 [facility] Neutrophils/100 WBC Auto (Bl d)Ordered By: Delano Francis on 08-07-2022 Neutrophils/100 WBC (Bld) 59.7 % . [facility] No Panel InformationOrdered By: Delano Francis on 08-07-2022 Estimated GFR () > 60 mL/Min [facility] Comment on above: GFR estimated refere nce range: According to KDOQI guidelines, <60 ml/min/1.73m2 is sufficient to diagnose a patient with chronic kidney disease. Nicotine Metabolite Negative Cutoff=25 [facility] Comment on above: Performed at: [facility] Kimmie barbour[address] [id number] Director: Quinton Wolf MD, Phone: [phone] Pharmacy Creatinine Clearance (Chem N/A [facility] Platelet mean volume Auto (B ld) [Entitic vol]Ordered By: Delano Francis on 08-07-2022 Platelet mean volume (Bld) [Entitic vol] 7.8 fL 6.3-10.7 [facility] Platelets Auto (Bld) [#/Vol] Ordered By: Delano Francis on 08-07-2022 Platelets (Bld) [#/Vol] 275 10*3/uL 150-450 [facility] Protein [Mass/volume] in Ser um or PlasmaOrdered By: Delano Francis on 08-07-2022 Protein [Mass/Vol] 6.4 g/dL 6.1-7.9 [facility] RBC Auto (Bld) [#/Vol]Ordere d By: Delano Francis on 08-07-2022 RBC (Bld) [#/Vol] 3.97 10*6/uL 3.60-5.00 [facility] Serum or plasma alanine troy otransferase measurement without P-5'-P (enzymatic activiOrdered By: Delano Francis on 08-07-2022 ALT No additional P-5'-P [Catalytic activity/Vol] 13 U/L 10-60 [facility] Serum or plasma albumin/glob ulin mass ratioOrdered By: Delano Francis on 08-07-2022 Albumin/Globulin [Mass ratio] 1.8 {ratio} [facility] Serum or plasma alkaline nova sphatase measurement (enzymatic activity/volume)Ordered By: Delano Francis on 08-07-2022 ALP [Catalytic activity/Vol] 52 U/L 32-92 [facility] Serum or plasma anion gap de terminationOrdered By: Delano Francis on 08-07-2022 Anion gap [Moles/Vol] 11.7 mmol/L 6.0-15.0 [facility] Serum or plasma aspartate am inotransferase measurement (enzymatic activity/volume)Ordered By: Delano Francis on 08-07-2022 AST [Catalytic activity/Vol] 15 U/L 10-42 [facility] Serum or plasma calcium kevin urement (mass/volume)Ordered By: Delano Francis on 08-07-2022 Calcium [Mass/Vol] 9.8 mg/dL 8.2-10.2 [facility] Serum or plasma chloride ra surement (moles/volume)Ordered By: Delano Francis on 08-07-2022 Chloride [Moles/Vol] 101 mmol/L 95-114 [facility] Serum or plasma high density lipoprotein (HDL) cholesterol measurementOrdered By: Delano Francis on 08-07-2022 Cholesterol in HDL [Mass/Vol] 60 mg/dL 35-85 [facility] Comment on above: HDL CHOL ATP-III CLA SSIFICATION Cardiovascular Risk HDL > or equal to 60 mg/dL LOW HDL < 40 mg/dL HIGH HDL CHOL ATP-III CLA SSIFICATION Cardiovascular RiskHDL > or equal to 60 mg/dL LOWHDL < 40 mg/dL HIGH Serum or plasma potassium me asurement (moles/volume)Ordered By: Delano Francis on 08-07-2022 Potassium [Moles/Vol] 4.4 mmol/L 3.5-5.[address] [facility] Serum or plasma sodium measu rement (moles/volume)Ordered By: Delano Francis on 08-07-2022 Sodium [Moles/Vol] 136 mmol/L 136-146 [facility] Serum or plasma total biliru bin measurement (mass/volume)Ordered By: Delano Francis on 08-07-2022 Bilirubin [Mass/Vol] 1.0 mg/dL 0.3-1.2 [facility] Serum or plasma total carbon dioxide measurement (moles/volume)Ordered By: Delano Francis on 08-07-2022 CO2 [Moles/Vol] 27.7 mmol/L 22.0-30.0 [facility] Serum or plasma total choles terol/high density lipoprotein (HDL) cholesterol mass ratOrdered By: Delano Francis on 08-07-2022 Cholesterol.total/Alivia sterol in HDL [Mass ratio] 4.2 {ratio} <5.0 [facility] Serum or plasma urea nitroge n measurement (mass/volume)Ordered By: Delano Francis on 08-07-2022 Urea nitrogen [Mass/Vol] 9 mg/dL 08-22 [facility] TSH DL <= 0.005 mIU/L QnOrde red By: Delano Francis on 08-07-2022 TSH Qn 1.43 m[IU]/L 0.45-5.33 [facility] T3, TOTAL (TRIIODOTHYRONINE) on 06-07-2022 T3, TOTAL 88 ng/dL Normal 71-180 [facility] Comment on above: Performed By: #### T 3TOTAL #### [facility] [address] [place] [address] Dr. Zonia Zhang FREE T4on 06-06-2022 Free T4 [Mass/Vol] 0.94 ng/dL Normal 0.76-1.46 [facility] Comment on above: Performed By: #### F T4 #### [facility] [address] [place] [address] Dr. Zonia Zhang TSHon 06-06-2022 TSH 1.364 uIU/mL Normal 0.358-3.74 0 [facility] Comment on above: Performed By: #### T SH #### [facility] [address] [place] [address] Dr. Zonia Zhang COVID Quick Testingon 2021 Result Positive Pulse 8 Other Quick Fluon 12-27-2021 FLUAV Ab CF (S) [Titer] Negative N [employer] Other FLUBV Ab CF (S) [Titer] Negative N [employer] Other Vital Signs Date Time Vital Sign Value Performing Clinician Facility 07-10-2025 13:59-0400 Body mass index (BMI) [Ratio] 36.41 kg/m2 Ángel Sita RSVP Law Work Phone: [facility] 07-10-2025 13:59-0400 Body weight 105.46 kg Ángel Sita DO Work Phone: [facility] 07-10-2025 13:59-0400 Diastolic blood pressure 74 mm[Hg] Ángel Sita DO Work Phone: [facility] 07-10-2025 13:59-0400 Systolic blood pressure 126 mm[Hg] Ángel Sita DO Work Phone: [facility] 06-26-2025 13:08-0400 Body mass index (BMI) [Ratio] 36.2 kg/m2 Ángel Sita DO Work Phone: [facility] 06-26-2025 13:08-0400 Body weight 104.83 kg Ángel Sita DO Work Phone: [facility] 06-26-2025 13:08-0400 Diastolic blood pressure 74 mm[Hg] Ángel Sita DO Work Phone: [facility] 06-26-2025 13:08-0400 Systolic blood pressure 116 mm[Hg] Ángel Sita DO Work Phone: [facility] 06-12-2025 14:21-0400 Body mass index (BMI) [Ratio] 35.73 kg/m2 Ángel Sita DO Work Phone: [facility] 06-12-2025 14:21-0400 Body weight 103.47 kg Ángel Sita DO Work Phone: [facility] 06-12-2025 14:21-0400 Diastolic blood pressure 70 mm[Hg] Ángel Sita DO Work Phone: [facility] 06-12-2025 14:21-0400 Systolic blood pressure 120 mm[Hg] Ángel Sita DO Work Phone: [facility] 05-30-2025 09:10-0400 Body mass index (BMI) [Ratio] 35.52 kg/m2 Ángel Sita DO Work Phone: [facility] 05-30-2025 09:10-0400 Body weight 102.88 kg Ángel Sita DO Work Phone: [facility] 05-30-2025 09:10-0400 Diastolic blood pressure 78 mm[Hg] Ángel Sita DO Work Phone: [facility] 05-30-2025 09:10-0400 Systolic blood pressure 120 mm[Hg] Ángel Sita DO Work Phone: [facility] 05-01-2025 08:36-0400 Body mass index (BMI) [Ratio] 34.43 kg/m2 Deisy Mattapoisett PA Work Phone: [facility] 05-01-2025 08:36-0400 Body weight 99.7 kg Deisy Mattapoisett PA Work Phone: [facility] 05-01-2025 08:36-0400 Diastolic blood pressure 74 mm[Hg] Deisy Adithya PA Work Phone: [facility] 05-01-2025 08:36-0400 Systolic blood pressure 118 mm[Hg] Deisy Adithya PA Work Phone: [facility] 03-30-2025 10:28-0400 Body mass index (BMI) [Ratio] 32.89 kg/m2 Ángel Sita DO Work Phone: [facility] 03-30-2025 10:28-0400 Body weight 95.25 kg Ángel Sita DO Work Phone: [facility] 03-30-2025 10:28-0400 Diastolic blood pressure 84 mm[Hg] Ángel Sita DO Work Phone: [facility] 03-30-2025 10:28-0400 Systolic blood pressure 120 mm[Hg] Ángel Sita DO Work Phone: [facility] 03-02-2025 09:58-0400 Body mass index (BMI) [Ratio] 31.76 kg/m2 Deisy Mattapoisett PA Work Phone: [facility] 03-02-2025 09:58-0400 Body weight 91.99 kg Deisy Mattapoisett PA Work Phone: [facility] 03-02-2025 09:58-0400 Diastolic blood pressure 72 mm[Hg] Deisy MUNOZ Work Phone: [facility] 03-02-2025 09:58-0400 Systolic blood pressure 120 mm[Hg] Deisy MUNOZ Work Phone: [facility] 02-02-2025 09:25-0500 Body mass index (BMI) [Ratio] 30.54 kg/m2 Ángel Sita DO Work Phone: [facility] 02-02-2025 09:25-0500 Body weight 88.45 kg Ángel Sita DO Work Phone: [facility] 02-02-2025 09:25-0500 Diastolic blood pressure 70 mm[Hg] Ángel Sita DO Work Phone: [facility] 02-02-2025 09:25-0500 Systolic blood pressure 120 mm[Hg] Ángel Sita DO Work Phone: [facility] 10-18-2024 11:19-0500 Body height 170.18 cm Robles Ball DO Work Phone: [facility] 10-18-2024 11:19-0500 Body mass index (BMI) [Ratio] 29.7 kg/m2 Robles Ball DO Work Phone: [facility] 10-18-2024 11:19-0500 Body weight 86.23 kg Robles Ball DO Work Phone: [facility] 10-18-2024 11:19-0500 Diastolic blood pressure 77 mm[Hg] Robles Ball DO Work Phone: [facility] 10-18-2024 11:19-0500 Heart rate 88 /min Robles Ball DO Work Phone: [facility] 10-18-2024 11:19-0500 Respiratory rate 12 /min Robles Ball DO Work Phone: [facility] 10-18-2024 11:19-0500 Systolic blood pressure 111 mm[Hg] Robles Ball DO Work Phone: [facility] 09-13-2024 14:28-0400 Body mass index (BMI) [Ratio] 28.79 kg/m2 Ángel Sita DO Work Phone: [facility] 09-13-2024 14:28-0400 Body weight 83.37 kg Ángel Sita DO Work Phone: [facility] 09-13-2024 14:28-0400 Diastolic blood pressure 70 mm[Hg] Ángel Sita DO Work Phone: [facility] 09-13-2024 14:28-0400 Systolic blood pressure 120 mm[Hg] Ángel Sita DO Work Phone: [facility] 05-03-2024 14:40-0400 Body height 170.18 cm [facility] 05-03-2024 14:40-0400 Body mass index (BMI) [Ratio] 28.3 kg/m2 [facility] 05-03-2024 14:40-0400 Body weight 82.1 kg [facility] 05-03-2024 14:40-0400 Diastolic blood pressure 82 mm[Hg] [facility] 05-03-2024 14:40-0400 Heart rate 78 /min [facility] 05-03-2024 14:40-0400 SaO2% (BldA) [Mass fraction] 98 % [facility] 05-03-2024 14:40-0400 Systolic blood pressure 122 mm[Hg] [facility] 01-06-2024 14:20-0500 Body height 170.2 cm Deisy MUNOZ Work Phone: [facility] 01-06-2024 14:20-0500 Body mass index (BMI) [Ratio] 28.05 kg/m2 Deisy MUNOZ Work Phone: [facility] 01-06-2024 14:20-0500 Body weight 81.25 kg Deisy MUNOZ Work Phone: [facility] 01-06-2024 14:20-0500 Diastolic blood pressure 70 mm[Hg] Deisy MUNOZ Work Phone: [facility] 01-06-2024 14:20-0500 Systolic blood pressure 120 mm[Hg] Deisy MUNOZ Work Phone: [facility] 10-02-2023 10:00-0400 Body height 170.18 cm Robles Ball Other [facility] Other 10-02-2023 10:00-0400 Body mass index (BMI) [Ratio] 29.38 kg/m2 Robles Ball Other [facility] Other 10-02-2023 10:00-0400 Body weight 85.1 kg Robles Ball Other [facility] Other 10-02-2023 10:00-0400 Diastolic blood pressure 83 mm[Hg] Robles Ball Other [facility] Other 10-02-2023 10:00-0400 Respiratory rate 12 /min Robles Ball Other [facility] Other 10-02-2023 10:00-0400 Systolic blood pressure 131 mm[Hg] Robles Ball Other [facility] Other 01-22-2023 10:30-0500 Body height 170.18 cm Robles Ball Other [facility] Other 01-22-2023 10:30-0500 Body mass index (BMI) [Ratio] 29.91 kg/m2 Robles Ball Other [facility] Other 01-22-2023 10:30-0500 Body weight 86.64 kg Robles Ball Other [facility] Other 01-22-2023 10:30-0500 Diastolic blood pressure 72 mm[Hg] Robles Ball Other [facility] Other 01-22-2023 10:30-0500 Respiratory rate 16 /min Robles Ball Other [facility] Other 01-22-2023 10:30-0500 Systolic blood pressure 122 mm[Hg] Robles Ball Other [facility] Other 09-26-2022 16:10-0400 Body height 170.18 cm Kiya Schaffer Other [facility] Other 09-26-2022 16:10-0400 Body mass index (BMI) [Ratio] 29.29 kg/m2 Kiya Schaffer Other [facility] Other 09-26-2022 16:10-0400 Body temperature 98.8 [degF] Kiya Schaffer Other [facility] Other 09-26-2022 16:10-0400 Body weight 84.82 kg Kiya Schaffer Other [facility] Other 09-26-2022 16:10-0400 Diastolic blood pressure 73 mm[Hg] Kiya Schaffer Other [facility] Other 09-26-2022 16:10-0400 Respiratory rate 18 /min Kiya Schaffer Other [facility] Other 09-26-2022 16:10-0400 SaO2% (BldA) [Mass fraction] 97 % Kiya Schaffer Other [facility] Other 09-26-2022 16:10-0400 Systolic blood pressure 125 mm[Hg] Kiya Schaffer Other [facility] Other 12-27-2021 10:15-0500 Body height 170.18 cm Elsi Mayer Other [facility] Other 12-27-2021 10:15-0500 Body mass index (BMI) [Ratio] 28.19 kg/m2 Elsi Mayer Other [facility] Other 12-27-2021 10:15-0500 Body temperature 100.3 [degF] Elsi Mayer Other [facility] Other 12-27-2021 10:15-0500 Body weight 81.65 kg Elsi Mayer Other [facility] Other 12-27-2021 10:15-0500 Respiratory rate 18 /min Elsi Mayer Other [facility] Other 12-27-2021 10:15-0500 SaO2% (BldA) [Mass fraction] 98 % Elsi Mayer Other [facility] Other Encounters Encounter Date Encounter Type Care Provider Facility Start: 07-10-2025 End: 07-10-2025 Bamboo flowsheet Ángel Sita DO Work Phone: [facility] Start: 07-10-2025 End: 07-10-2025 Bamboo flowsheet Ángel Sita DO Work Phone: [facility] Start: 07-10-2025 End: 07-10-2025 flow sheet Ángel Sita DO Work Phone: [facility] Comment on above: Third trimester preg lai ([facility]); 35 weeks gestation of ([facility]) Start: 07-10-2025 End: 07-10-2025 ambulatory ÁNGEL SITA Not Available Start: 07-08-2025 End: 07-08-2025 Clinisync Result Encounter Ángel Sita DO Work Phone: [facility] Unsolicited Start: 07-08-2025 End: 07-08-2025 Clinisync Result Encounter Ángel Sita DO Work [...] Comment on above: Third trimester preg lai ([facility]); 33 weeks gestation of ([facility]) Start: 06-26-2025 End: 06-26-2025 ambulatory ÁNGEL SITA [...] of advanced maternal age in third trimester ([facility]) Start: 06-12-2025 End: 06-12-2025 ambulatory ÁNGEL SITA [...] 06-03-2025 End: 06-03-2025 Clinisync Result Encounter Ángel Siat DO Work Phone: [facility] Unsolicited Start: 05-30-2025 End: 05-30-2025 Bamboo flowsheet Ángel Sita DO Work Phone: [facility] Start: 05-30-2025 End: 05-30-2025 Bamboo flowsheet Ángel Sita DO Work Phone: [facility] Start: 05-30-2025 End: 05-30-2025 flow sheet Ángel Sita DO Work Phone: [facility] Comment on above: Third trimester preg lai ([facility]); 29 weeks gestation of ([facility]); History of miscarriage; Multigravida of advanced maternal age in third trimester ([facility]) Start: 05-30-2025 End: 05-30-2025 ambulatory ÁNGEL SITA Not Available Start: 05-11-2025 End: 05-11-2025 Clinisync Result Encounter Edson Dewitt NP Work Phone: [facility] Unsolicited Start: 05-11-2025 End: 05-11-2025 Clinisync Result Encounter Edson Dewitt NP Work Phone: [facility] Unsolicited Start: 05-01-2025 End: 05-01-2025 Bamboo flowsheet Deisy MUNOZ Work Phone: [facility] Start: 05-01-2025 End: 05-01-2025 Bamboo flowsheet Deisy MUNOZ Work Phone: [facility] Start: 05-01-2025 End: 05-01-2025 flow sheet Deisy MUNOZ Work Phone: [facility] Comment on above: size [...] Phone: [facility] Start: 03-30-2025 End: 05-01-2025 Bamboo flowsheet Ángel Sita DO Work Phone: [facility] Start: 03-30-2025 End: 03-30-2025 flow sheet Ángel Lopezo DO Work Phone: [facility] Comment on above: Second trimester pre gnancy; 21 weeks gestation of ; Diabetes mellitus screening; Uterovaginal prolapse, incomplete; Encounter for follow-up ultrasound of anatomy Start: 03-30-2025 End: 03-30-2025 ambulatory ÁNGEL BUCKNER Not Available Start: 03-21-2025 End: 03-21-2025 Clinisync Result Encounter Deisy MUNOZ Work Phone: [facility] Unsolicited Start: 03-21-2025 End: 03-21-2025 Clinisync Result Encounter Deisy MUNOZ Work Phone: [facility] External Department Unsolicited Start: 03-02-2025 End: 03-02-2025 Bamboo flowsheet Deisy MUNOZ Work Phone: [facility] Start: 03-02-2025 End: 03-09-2025 Bamboo flowsheet Deisy MUNOZ Work Phone: [facility] Start: 03-02-2025 End: 03-09-2025 Clinisync Result Encounter Deisy MUNOZ Work Phone: [facility] Unsolicited Start: 03-02-2025 End: 03-03-2025 External Result Encounter Deisy MUNOZ Work Phone: [facility] Unsolicited Start: 03-02-2025 End: 03-02-2025 Patient encounter procedure Deisy MUNOZ Work Phone: [facility] Start: 03-02-2025 End: 03-02-2025 Periodic preventive med est patient 18-39 yrs Deisy MUNOZ Work Phone: [facility] Comment on above: 17 [...] 10-18-2024 ambulatory Robles Ball DO Work Phone: [facility] Work Phone: Start: 10-18-2024 End: 10-18-2024 Encounter for general adult medical examination without abnormal findings Robles Charles DO Work Phone: [facility] Start: 10-18-2024 End: 10-18-2024 Patient encounter procedure Robles Charles DO Work Phone: [facility] Work Phone: Start: 10-16-2024 Patient encounter status Jermaine min Ball DO Work Phone: [facility] Start: 10-14-2024 Non-patient / Non-visit Benjam in Ball DO Work Phone: [facility] Work Phone: Start: 09-22-2024 End: 09-22-2024 Departed Referred DO Robles Charles Work Phone: [facility] Start: 09-22-2024 End: 09-22-2024 ambulatory DO Robles Charles Work Phone: [facility] Work Phone: Start: 09-13-2024 End: 09-13-2024 [...] Not Available Start: 08-29-2024 End: 08-29-2024 ambulatory [facility] Work Phone: Start: 08-29-2024 End: 08-29-2024 Patient encounter procedure [facility] Work Phone: Start: 05-03-2024 End: 05-03-2024 ambulatory [facility] Work Phone: Start: 05-03-2024 End: 05-03-2024 Patient encounter procedure [facility] Work Phone: Start: 2024 End: 2024 ambulatory DO Robles Ball Work Phone: [facility] Work Phone: Start: 2024 End: 2024 Patient encounter procedure DO Robles Ball Work Phone: [facility] Work Phone: Start: 01-07-2024 End: 01-07-2024 Patient encounter procedure DO Robles Ball Work Phone: [facility] [place] Work Phone: Start: 01-07-2024 End: 01-07-2024 ambulatory DO Robles Ball Work Phone: [facility] Work Phone: Start: 01-06-2024 End: 01-06-2024 Office outpatient visit 15 minutes Deisy MUNOZ Work Phone: [facility] Comment on above: Encounter for weight management; Hormone disorder; 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 Start: 10-02-2023 End: 10-02-2023 ambulatory Robles Ball Other [facility] Other Start: 10-02-2023 Encounter for genera l adult medical examination without abnormal findings Robles Charles [facility] Start: 10-02-2023 Periodic preventive med est patient 18-39 yrs Robles Charles [facility] Start: 09-17-2023 End: 09-17-2023 ambulatory MD Liz Conteh Work Phone: [facility] Work Phone: Start: 09-17-2023 End: 09-17-2023 Departed Referred MD Liz Conteh Work Phone: [facility]Employee Benefit Screening Start: 01-22-2023 End: 01-22-2023 ambulatory Robles Charles Other [facility] Other Start: 01-22-2023 Office outpatient vi sit 15 minutes Robles Charles [facility] Start: 01-12-2023 End: 01-12-2023 ambulatory Robles Charles Other [facility] Other Start: 01-12-2023 Telephone encounter Robles Charles [facility] Start: 12-24-2022 End: 12-24-2022 ambulatory Robles Charles Other [facility] Other Start: 12-24-2022 Office outpatient vi sit 15 minutes Robles Charles [facility] Start: 09-30-2022 End: 09-30-2022 ambulatory Kiya Schaffer Other [facility] Other Start: 09-30-2022 Telephone encounter Kiya Schaffer [facility] Start: 09-26-2022 End: 09-26-2022 Departed Referred MD Liz Conteh Work Phone: [facility] [place] Start: 09-26-2022 End: 09-26-2022 ambulatory MD Liz Conteh Work Phone: [facility] Work Phone: Start: 09-26-2022 Office outpatient vi sit 15 minutes Kiya Schaffer [facility] Start: 09-25-2022 ([facility]) [facility] Co vid Vaccine Subha Dillon [facility] Start: 09-25-2022 End: 09-25-2022 ambulatory MD Liz Conteh Work Phone: [facility] Work Phone: Start: 09-25-2022 End: 09-25-2022 Patient encounter procedure MD Liz Conteh Work Phone: [facility]Covid Vaccine Off Site Start: 08-25-2022 End: 08-25-[address] ÁNGEL BUCKNER Facility:[facility] Start: 08-07-2022 End: 08-07-2022 Departed Referred MD Liz Conteh Work Phone: [facility] Benefit Screening Start: 06-06-2022 End: 06-07-[address] ROBLES CHARLES Facility:[facility] Start: 01-01-2022 End: 01-01-2022 ambulatory Elsi Leyla Other [facility] Other Start: 01-01-2022 Office outpatient vi sit 5 minutes Elsi Leyla [facility] Start: 12-27-2021 End: 12-27-2021 ambulatory Elsi Leyla Other [facility] Other Start: 12-27-2021 Office outpatient vi sit 15 minutes Elsi Leyla [facility] Start: 08-23-2021 ([facility] Vac) [facility] Co vid Vaccine Subha Dillon [facility] Procedures Date Procedure Procedure Detail Performing Clinician Start: 07-10-2025 Urnls dip stick/tabl et rgnt non-auto w/o micrscp Ángel Sita DO Work Phone: Start: 07-08-2025 US OB BPP W NON-STRESS Ángel Sita DO Work Phone: Start: 07-01-2025 US OB BPP W NON-STRESS [...] Start: 05-11-2025 US OB GROWTH Edson E jackyly [employer] Work Phone: Start: 04-18-2025 ALL CBC [...] 09-13-2029 Screening for malignant neoplasm of cervix [facility] Start: 03-02-2028 Screening for malignant neoplasm of cervix Pap Smear [facility] Start: 09-19-2025 End: 09-19-2025 Patient encounter procedure [facility] Start: 08-03-2025 End: 08-03-2025 Patient encounter procedure 08/03/2025 9:10 AM EDT Routine [facility] [address] [place] [id number] Ángel Buckner, DO [address] [place] [address] [facility] Start: 07-31-2025 Influenza vaccination [facility] Start: 07-24-2025 End: 07-24-2025 Patient encounter procedure 07/24/2025 11:20 AM EDT Routine [facility] [address] [id number] Ángel Buckner, DO [address] [place] [address] [facility] Start: 07-17-2025 End: 07-17-2025 Patient encounter procedure 07/17/2025 2:50 PM EDT Routine [facility] [address] [id number] Ángel Buckner, DO [address] [place] [address] [facility] Start: 07-10-2025 End: 07-10-2026 CULTURE, GROUP B STREP WITH SUSCEPTIBLITY CULTURE, GROUP B STREP WITH SUSCEPTIBLITY Lab Routine Third trimester ([facility]) Expected: 07/10/2025, Expires: 07/10/2026 [facility] Work Phone: Comment on above: Expected: 07/10/2025, Expires: Start: 07-10-2025 End: 07-10-2025 Patient encounter procedure [facility] Comment on above: Arrived Start: 06-26-2025 End: 06-26-2025 Patient encounter procedure [...] in third trimester, single or unspecified fetus ([facility] Expected: 06/12/2025, Expires: 10/13/2025 [facility] Work Phone: Comment on above: Expected: 06/12/2025, Expires: Start: 05-30-2025 End: 11-30-2025 US biophysical profile w non stress test US biophysical profile w non stress test Imaging Routine History of miscarriage Multigravida of advanced maternal age in third trimester ([facility]) Expected: 05/30/2025 (Approximate), Expires: 11/30/2025 [facility] [...] Procedure [facility] [address] [place] [phone] [facility] Start: 04-03-2025 End: 04-03-2025 Patient encounter procedure 04/03/2025 9:50 AM EDT Routine [facility] [address] [place] [phone] Ángel Buckner, DO [address] [place] [address] [facility] Start: 04-03-2025 End: 04-03-2025 Professional / ancillary services management 04/03/2025 8:00 AM EDT Ancillary Procedure [facility] [address] [place] [address] [facility] Start: 03-30-2025 End: [...] ultrasound of anatomy Expected: 03/30/2025, Expires: 06/30/2025 [facility] Comment on above: Expected: 03/30/2025, Expires: [...] AM EDT Routine [facility] [address] [place] [address] Deisy Villar PA [address] [place] [address] Arrived [facility] Comment on above: Arrived Start: 02-02-2025 End: 02-02-2025 Patient encounter procedure [facility] Comment on above: Arrived Start: 01-05-2025 End: 01-05-2025 ambulatory 01/05/2025 1:30 PM EST Initial [facility] [address] [place] [address] [facility] Start: 01-05-2025 End: 01-05-2025 Professional / ancillary services management 01/05/2025 1:00 PM EST Ancillary Procedure [facility] [address] [place] [address] [facility] Start: 09-13-2024 End: 09-13-2024 Patient encounter procedure [facility] Comment on above: Arrived Start: 07-31-2024 Influenza vaccination Influenza Vaccine (#1) [facility] Start: 02-03-2024 End: 02-03-2024 Patient encounter procedure 02/03/2024 1:50 PM EST Office Visit [facility] [address] [place] [address] Deisy Villar PA [address] [facility] [place] [address] [facility] Start: 01-07-2024 Dehydroepiandrosterone sulfate level [facility] Start: 01-07-2024 Sex hormone binding globulin measurement [facility] Start: 01-07-2024 T3 reverse measurement [facility] Start: 01-07-2024 Thyroxine measurement [facility] Start: 01-07-2024 [facility] Start: 01-06-2024 End: 01-06-2025 Anti-thyroglobulin antibody Anti-thyroglobulin antibody Lab Routine Hormone disorder Expected: 01/06/2024 (Approximate), Expires: 01/06/2025 [facility] Comment on above: Expected: 01/06/2024 (Approximate), [...] Hormone disorder Expected: 01/06/2024 (Approximate), Expires: 01/06/2025 [facility] Comment on above: Expected: 01/06/2024 (Approximate), Expi res: 01/06/2025 Start: 01-06-2024 End: 01-06-2025 Insulin, total Insulin, total Lab Routine Hormone disorder Expected: 01/06/2024 (Approximate), Expires: 01/06/2025 [facility] Comment on above: Expected: 01/06/2024 (Approximate), Expi res: 01/06/2025 Start: 01-06-2024 End: 01-06-2025 Serotonin serum Serotonin serum Lab Routine Hormone disorder Expected: 01/06/2024 (Approximate), Expires: 01/06/2025 [facility] Comment on above: Expected: 01/06/2024 (Approximate), Expi res: 01/06/2025 Start: 01-06-2024 End: 01-06-2025 Thyroglobulin Thyroglobulin Lab Routine Hormone disorder Expected: 01/06/2024 (Approximate), Expires: 01/06/2025 [facility] Comment on above: Expected: 01/06/2024 (Approximate), Expi res: 01/06/2025 Start: 01-06-2024 End: 01-06-2025 Thyrotropin [Units/volume] in Serum or Plasma [facility] Comment on above: Ordered: 01/06/2024 Expected: 01/06/2024 (Approximate), Expires: 01/06/2025 Start: 09-17-2023 [facility] Start: 08-07-2022 [facility] Work Phone: Calcitriol [Mass/vol ume] in Serum or Plasma [facility] CHLAMYDIA TRACHOMATI S (GENITO/STI) CHLAMYDIA TRACHOMATIS (GENITO/STI) Lab Routine Exposure to STD Ordered: 03/02/2025 [facility] Comment on above: Ordered: 03/02/2025 Cytology Cervical or vaginal smear or scraping study Pap Smear Pathology and Cytology Routine Well woman exam with routine gynecological exam Ordered: 09/13/2024 [facility] Work Phone: Comment on above: Ordered: 09/13/2024 Cytology Cervical or vaginal smear or scraping study Pap Smear Pathology and Cytology Routine Well woman exam with routine gynecological exam Ordered: 03/02/2025 [facility] Comment on above: Ordered: 03/02/2025 DHEA-sulfate DHEA-sulfate Lab Routine Hormone disorder Ordered: 01/06/2024 [facility] Comment on above: Ordered: 01/06/2024 Estradiol Estradiol Lab Ro utine Hormone disorder Ordered: 01/06/2024 [facility] Work Phone: Comment on above: Ordered: 01/06/2024 Estradiol (E2) [Mass /volume] in Serum or Plasma [facility] Estrone Estrone Lab Rout ine Hormone disorder Ordered: 01/06/2024 [facility] Comment on above: Ordered: 01/06/2024 Estrone (E1) [Mass/v olume] in Serum or Plasma [facility] Ferritin [Mass/volum e] in Serum or Plasma Ferritin Lab Routine Hormone disorder Ordered: 01/06/2024 [facility] Comment on above: Ordered: 01/06/2024 Hemoglobin A1c measurement Hemog lobin A1c Lab Routine Hormone disorder Ordered: 01/06/2024 [facility] Comment on above: Ordered: 01/06/2024 Human papilloma viru s DNA [Presence] in Unspecified specimen by Probe with amplification HPV DNA probe, amplified Microbiology Routine Well woman exam with routine gynecological exam Ordered: 09/13/2024 [facility] Comment on above: Ordered: 09/13/2024 Human papilloma viru s DNA [Presence] in Unspecified specimen by Probe with amplification HPV DNA probe, amplified Microbiology Routine Well woman exam with routine gynecological exam Ordered: 03/02/2025 [facility] Comment on above: Ordered: 03/02/2025 Insulin [Units/volum e] in Serum or Plasma [facility] Neisseria gonorrhoea e DNA [Presence] in Unspecified specimen by ROB with probe detection Neisseria gonorrhea DNA probe, direct Lab Routine Exposure to STD Ordered: 03/02/2025 [facility] Comment on above: Ordered: 03/02/2025 Progesterone Progesterone Lab Routine Hormone disorder Ordered: 01/06/2024 [facility] Comment on above: Ordered: 01/06/2024 Progesterone [Mass/v olume] in Serum or Plasma [facility] Serotonin [Mass/volu me] in Plasma [facility] Sex hormone binding globulin Sex hormone binding globulin Lab Routine Hormone disorder Ordered: 01/06/2024 [facility] Comment on above: Ordered: 01/06/2024 SURESWAB(R) ADVANCED VAGINITIS PLUS, TMA SURESWAB(R) ADVANCED VAGINITIS PLUS, TMA Pathology and Cytology Routine Vaginal discharge Ordered: 03/02/2025 [facility] Work Phone: Comment on above: Ordered: 03/02/2025 T3, reverse T3, reverse Lab Routine Hormone disorder Ordered: 01/06/2024 [facility] Comment on above: Ordered: 01/06/2024 Testosterone Free [Mass/volume] in Serum or Plasma [facility] TESTOSTERONE, FREE TESTOSTERONE, FREE Lab Routine Hormone disorder Ordered: 01/06/2024 [facility] Comment on above: Ordered: 01/06/2024 Testosterone, free, total Testos terone, free, total Lab Routine Hormone disorder Ordered: 01/06/2024 [facility] Comment on above: Ordered: 01/06/2024 Throat culture Throat Culture [facility] Thyroglobulin Ab [Units/volume] in Serum or Plasma [facility] Thyroid peroxidase antibody Thyr oid peroxidase antibody Lab Routine Hormone disorder Ordered: 01/06/2024 [facility] Comment on above: Ordered: 01/06/2024 Thyroperoxidase Ab [Units/volume] in Serum or Plasma [facility] Thyroxine (T4) free [Mass/volume] in Serum or Plasma T4, free Lab Routine Hormone disorder Ordered: 01/06/2024 [facility] Comment on above: Ordered: 01/06/2024 Triiodothyronine (T3 ) Free [Mass/volume] in Serum or Plasma T3, free Lab Routine Hormone disorder Ordered: 01/06/2024 [facility] Comment on above: Ordered: 01/06/2024 Vitamin D 1,25 dihydroxy Vitamin D 1,25 dihydroxy Lab Routine Hormone disorder Ordered: 01/06/2024 [facility] Comment on above: Ordered: 01/06/2024 [facility] Work Phone: Immunizations Immunization Date Immunization Notes Care Provider Naeem pablo 09-15-2023 influenza, injectabl e, quadrivalent, preservative free [facility] 09-15-2023 influenza virus vaccine, unspecified formulation Ángel Buckner DO Work Phone: [facility] 09-25-2022 COVID-19 Moderna (BIvalent) Kiya Schaffer Other [facility] 08-23-2021 COVID-19 Pfizer Subha Fitt Other [facility] 07-31-2021 COVID-19 Pfizer Subha Fitt Other [facility] 05-19-2021 diphtheria, tetanus toxoids and pertussis vaccine [facility] Payers Date Payer Category Payer Self-pay [id number] 2022 Private Health Insurance [employer] [id number] 2022 Unknown [employer] [id number] 2022-Present [address] [place] [address] [id number] 1990 Unknown [id number] [id number] .593 1990 Unknown [id number] 2.840.1.402316.3.579.2 .593 1990 Unknown [id number] 2.16840.1.744684.3.579.2 .1259 1990 Unknown [id number] 2.16.840.1.645327.3.579.2 .1258 1990 Unknown [id number] 2.16840.1.045551.3.579.2 .9 1990 Unknown [id number] 2.16840.1.217047.3.579.2 .1258 1990 Unknown [id number] 2.16840.1.225108.3.579.2 .1259 1990 Unknown [id number] 2.16.840.1.859176.3.579.2 .1258 1990 Unknown [id number] 2.16840.1.499509.3.579.2 .9 1990 Unknown [id number] 2.16840.1.609922.3.579.2 .1258 1990 Unknown [id number] 2.16.840.1.474526.3.579.2 .1259 1990 Unknown [id number] 2.16.840.1.424292.3.579.2 .9 1990 Unknown [id number] 2.16.840.1.134998.3.579.2 .9 1990 Unknown [id number] 2.16.840.1.266792.3.579.2 .9 1990 Unknown [id number] 2.16.840.1.129923.3.579.2 .1259 1959 Unknown [id number] 2.16.840.1.647755.19 Unknown [id number] 2.16.840.1.692511.3.579.2 .531 Unknown [id number] 2.16.840.1.596686.3.579.2 .531 Worker's Compensation [facility] C t Ind [id number] Social History Date Type Detail Facility Start: 10-13-2023 End: 09-13-2024 Sex Assigned At [facility] Start: 1990 Sex Assigned At Female [facility] Start: 08-13-2023 End: 05-03-2024 Tobacco smoking status DCIS Never smoked tobacco [facility] Start: 01-06-2024 [...] [facility] Start: 10-18-2024 Sex Female (finding) [facility] Start: 11-16-2024 [facility] Clinical Notes 08-23-2021 to 07-10-2025 Edson Dewitt NP - 07/10/2025 1:50 PM Joselito Kearney, JUAN JOSE - 06/26/2025 1:10 PM ALEXANDER Abbott - 06/12/2025 2:10 PM Barbara Charlton, JUAN JOSE - 05/30/2025 8:50 AM EDT Note Date & Type Note Facility 07-10-2025 History of Presen t illness Narrative Reason [...] Vitals: Estimated body mass index is 36.41 kg/m as calculated from the following: Height as of 01/06/24: 5' 7 . Weight as of this encounter: 232 lb 8 oz. BP: 126/74 Patient's last menstrual period was 11/02/2024. ASSESSMENT & PLAN ICD-10-CM 1. Third trimester (HHS-HCC) Z34.93 CULTURE, GROUP B STREP WITH SUSCEPTIBLITY CULTURE, GROUP B STREP WITH SUSCEPTIBLITY 2. 35 weeks gestation of ([facility]) Z3A.35 POCT urinalysis dipstick manually resulted Return [...] week for routine OB appointment. Documented by Edson Dewitt NP on behalf of: Ángel Buckner DO documented in this encounter [facility] 06-26-2025 History of Presen t illness Narrative [...] nursing note reviewed. Exam conducted with a drop wire aliner present. Vitals: Estimated body mass index is 36.2 kg/m as calculated from the following: Height as of 01/06/24: 5' 7 . Weight as of this encounter: 231 lb 1.9 oz. BP: 116/74 Patient's last menstrual period was 11/02/2024. ASSESSMENT & PLAN (Z34.93) Third trimester ([facility]) Plan: POCT urinalysis dipstick manually resulted (Z3A.33) 33 weeks gestation of ([facility]) Plan: POCT urinalysis dipstick manually resulted Patient presents today for a routine obstetrics appointment. Patient is currently 33w5d with a Estimated Date of Delivery: 08/09/25. Patient to return to clinic in 2 weeks for GBS. Documented by Mary Lou Kearney LPN on behalf of: Ángel Buckner DO documented in this encounter [facility] 06-12-2025 History of Presen t illness [...] in third trimester, single or unspecified fetus ([facility]) O36.63X0 US OB follow up transabdominal approach 2. 31 weeks gestation of ([facility]) Z3A.31 POCT urinalysis dipstick manually resulted 3. Third trimester ([facility]) Z34.93 POCT urinalysis dipstick manually resulted 4. History of miscarriage Z87.59 5. Multigravida of advanced maternal age in third trimester ([facility]) O09.523 Return OB: Patient presents today for [...] Ángel Buckner DO documented in this encounter [facility] 05-30-2025 History of Presen t illness [...] nursing note reviewed. Exam conducted with a drop wire aliner present. Vitals: Estimated body mass index is 35.52 kg/m as calculated from the following: Height as of 01/06/24: 5' 7 . Weight as of this encounter: 226 lb 12.8 oz. BP: 120/78 Patient's last menstrual period was 11/02/2024. ASSESSMENT & PLAN ICD-10-CM 1. Third trimester ([facility]) Z34.93 POCT urinalysis dipstick manually resulted 2. 29 weeks gestation of ([facility]) Z3A.29 POCT urinalysis dipstick manually resulted 3. History of miscarriage Z87.59 4. Multigravida of advanced maternal age in third trimester ([facility]) O09.523 Return OB: Patient presents today for [...] Ángel Buckner DO documented in this encounter [facility] 05-01-2025 History of Presen t illness [...] Diagnosis Date Fatigue GARTH (generalized anxiety disorder) ([facility]) Hyperlipidemia ([facility]) Paronychia, finger HISTORY PAST MEDICAL HISTORY SOCIAL HISTORY Past Medical History: Diagnosis Date Fatigue GARTH (generalized anxiety disorder) ([facility]) Hyperlipidemia ([facility]) Paronychia, finger Social History Tobacco Use Smoking [...] nursing note reviewed. Exam conducted with a drop wire aliner present. Vitals: Estimated body mass index is [...] Edson Dewitt NP documented in this encounter [facility] 03-30-2025 History of Presen t illness Narrative Reason for Appointment: Patient ID: Michelte eRyes is a 35 y.o. female who [...] nursing note reviewed. Exam conducted with a drop wire aliner present. Vitals: Estimated body mass index is [...] Ángel Buckner DO documented in this encounter [facility] 03-02-2025 History of Presen t illness [...] nursing note reviewed. Exam conducted with a drop wire aliner present. Vitals: Estimated body mass index is [...] [place] documented in this encounter [facility] 02-02-2025 History of Presen t illness [...] Ángel Buckner DO documented in this encounter [facility] 09-13-2024 History of Presen t illness [...] nursing note reviewed. Exam conducted with a drop wire aliner present. Vitals: Estimated body mass index is [...] Ángel Buckner DO documented in this encounter [facility] 01-06-2024 History of Presen t illness [...] Diagnosis Date Fatigue GARTH (generalized anxiety disorder) ([facility]) Hyperlipidemia (CMS/HCC) Paronychia, finger Family History Problem [...] [place] documented in this encounter [facility] 10-02-2023 Evaluation note Encounter Date Diagnosis [...] prior to bedtime. Weight loss. Pepcid PRN [facility] Other 2023 Evaluation note* Encounter Date Diagnosis Assessment Notes Treatment Notes Treatment Clinical Notes Dec, Nasal turbinate hypertrophy (ICD-10 - J34.3) FLonase, saline NS, Sudafed and avoid use of Afin. Refer to ENT. Dec, Nonallergic vasomotor rhinitis (ICD-10 - J30.0) Prednisone tapered over 8 days. Claritin as needed. [facility] Other 02-13-2023 Evaluation note* Encounter Date Diagnosis Assessment Notes Treatment Notes Treatment Clinical Notes Dec, Acute non-recurrent maxillary sinusitis (ICD-10 - J01.00) [facility] Other 01-25-2023 Evaluation note* Encounter Date Diagnosis Assessment Notes Treatment Notes Treatment Clinical Notes Nov, Acute non-recurrent maxillary sinusitis (ICD-10 - J01.00) Instructed to use Robitussin or Mucinex for cough, saline or Flonase NS for congestion, Tylenol for pain and fever. [facility] Other 10-28-2022 Evaluation note* Encounter Date Diagnosis [...] (suspected) exposure to covid-19 (ICD-10 - Z20.822) [facility] Other 10-27-2022 Evaluation note* Encounter Date Diagnosis Assessment Notes Treatment Notes Treatment Clinical Notes Aug, Encounter for immunization (ICD-10 - Z23) Patient presents today for COVID-19 vaccination booster. Patient pre-vaccination form answers reviewed. Patient denies current illness or allergic reaction to any component of a COVD-19 vaccine. Patient provided with copy of current EUA. [facility] Other 02-02-2022 Evaluation note* Encounter Date Diagnosis [...] Patient care instructions given in writting by [facility] At Home document. Additional time spent conducting pre-visit phone call, screening for symptoms, instructions on social distancing, application and removal of PPE, and cleaning of examination room, equipment and supplies was preformed. Patient education given for testing methodology and results. Patient care instructions given in writting by [employer] [facility] At Home document. [facility] Other 01-28-2022 Evaluation note* Encounter Date Diagnosis [...] Patient care instructions given in writting by [facility] document. [facility] Other 09-24-2021 Evaluation note* Encounter Date Diagnosis Assessment Notes Treatment Notes Treatment Clinical Notes Jul, Encounter for immunization (ICD-10 - Z23) Patient presents for COVID-19 vaccination #2. Pre-screening form answers evaluated with patient. Patient denies current illness or allergic reaction to component of COVID-19 vaccine. Patient provided with current copy of EUA. [facility] Other Evaluation noteNo assessment information available [facility] Work Phone: Evaluation noteNo InformationNort [employer] Other Evaluation note* Diagnosis Encounter for weight management Hormone disorder Unspecified endocrine disorder 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 [facility] Diagnosis Well woman exam with routine gynecological exam Routine gynecological examination [facility] Diagnosis Onset Date Resolution Status Admit Date Hypercholesteremia acute Novemb er 2023 11:13am Wellness examination acute Nove mber 2023 11:13am [facility] Work Phone: Evaluation note* Diagnosis 13 [...] gestation of (HHS-HCC) [facility] Diagnosis Third trimester (HHS-HCC) state, incidental 35 weeks gestation of ([facility]HS-HCC) [facility] Narrative - Reported* Type Description Date Medical History Child X2 Natural Surgical History No know Surgical history Hospitalization History see above [facility] Other History general Narrative - Reported* Type Description Date Medical History Child X2 Natural Surgical History No Surgical history information Hospitalization History see above [facility] Other History general Narrative - Reported* Type Description Date Medical History Child X2 Natural Medical History Body mass index (BMI) of 25.0 to 29.9 Medical History Fatigue Medical History Hyperlipidemia, group A Medical History GARTH (generalized anxiety disorde r) Surgical History No know Surgical history Hospitalization History No know Hospitalization history [facility] Other Chief Complaint and Reason for Visit [...] Nasal turbinate hype rtrophy (J34.3) Referral Organization [facility] Ange russo Referring Provider First Name Robles Referring Provider Last Name Nela Referring Provider Specialty Internal Me dicine Referred Organization [facility] Referred Provider Robles Hernandez Referred Address ,[place], [place],[address] Referred Provider Specialty Otolaryngolo gy Referral Priority Routine Referral Appointment Date 2023-02-04 General Notes Rosangela Cruz 09:25:33 AM >received today, notes locked, insurance card attached, referral faxed Rosangela Cruz 01/29/2023 12:42:25 PM >Shannan at Dr. Rodriges office requested referral be faxed again to [phone]. done! Rosangela Cruz 02/05/2023 02:23:23 PM >notes [...] Primary Care Provider Active Delano Francis DO [facility] Attending Provider Active Team Status: Active Member [...] January 07, 2024 End: January 07, 2024 Aluminum Sheet Cutter Relationship Specialty Start Date End Date Robles Charles MD [address] [place] [phone] PCP - General Internal Medicine 07/30/23 Team Status: Inactive Member Role Status Dates Robles Charles DO Primary Care Provide r, Attending Provider Active Start: 2024 End: 2024 Team Status: Inactive Member Role Status Dates Robles Charles DO Primary Care Provider Active Start: May 03, 2024 End: May 03, 2024 Caro Chacon APRN [employer] Attending Provider Act alex Start: May 03, 2024 End: May 03, 2024 Team Status: Inactive Member Role Status Dates Robles Charles DO Primary Care Provide r, Attending Provider Active Start: August 29, 2024 End: August 29, 2024 Aluminum Sheet Cutter Relationship Specialty Start Date End Date Robles Charles MD [address] [place] [phone] PCP - General Internal Medicine 07/30/23 Deisy Villar PA [address] [place] [address] [place] [address] PCP - Medical [employer] 11/30/23 11/29/99 Aluminum Sheet Cutter Relationship Specialty Start Date End Date Robles Charles MD [address] [place] [phone] PCP - General Internal Medicine 07/30/23 Deisy Villar PA [address] [place] [address] [place] [address] PCP - Medical [employer] 11/30/23 11/29/99 Aluminum Sheet Cutter Relationship Specialty Start Date End Date Robles Charles MD [address] [place] [phone] PCP - General Internal Medicine 07/30/23 Deisy Villar PA [address] [place] [address] [place] [address] PCP - Medical [employer] 11/30/23 11/29/99 Team Status: Inactive Member [...] October 18, 2024 End: October 18, 2024 Aluminum Sheet Cutter Relationship Specialty Start Date End Date Robles Charles MD [address] [place] [facility] [place] [phone] PCP - General Internal Medicine 07/30/23 Deisy Villar PA [address] [place] [address] [place] [address] PCP - Medical [employer] 11/30/23 11/29/99 Aluminum Sheet Cutter Relationship Specialty Start Date End Date Robles Charles MD [address] [place] [facility] [place] [phone] PCP - General Internal Medicine 07/30/23 Deisy Villar PA [address] [place] [address] [place] [address] PCP - Medical [employer] 11/30/23 11/29/99 Aluminum Sheet Cutter Relationship Specialty Start Date End Date Robles Charles MD [address] [place] [facility] [place] [phone] PCP - General Internal Medicine 07/30/23 Deisy Villar, PA [address] [place] [address] [place] [address] PCP - Medical [employer] 11/30/23 11/29/99 Aluminum Sheet Cutter Relationship Specialty Start Date End Date Robles Charles MD [address] [facility] [place] [phone] PCP - General Internal Medicine 07/30/23 Deisy Villar PA [address] [place] [address] [place] [address] PCP - Medical [place] [employer] 11/30/23 11/29/99 Aluminum Sheet Cutter Relationship Specialty Start Date End Date Robles Charles MD PCP - General Internal Medicine 07/30/23 Deisy Villar PA [address] [place] [address] [place] [address] PCP - Medical [place] [employer] 11/30/23 11/29/99 Aluminum Sheet Cutter Relationship Specialty Start Date End Date Robles Charles DO PCP - General Internal Medicine 07/30/23 Deisy Villar PA [address] [place] [address] [place] [address] PCP - Medical [place] [employer] 11/30/23 11/29/99 Aluminum Sheet Cutter Relationship Specialty Start Date End Date Robles Charles DO [address] [place] [phone] PCP - General Internal Medicine 07/30/23 Deisy Villar PA [address] [place] [address] [place] [address] PCP - Medical [place] [employer] 11/30/23 11/29/99 Aluminum Sheet Cutter Relationship Specialty Start Date End Date Robles Charles DO [address] [place] [phone] PCP - General Internal Medicine 07/30/23 Deisy Villar PA [address] [place] [address] [place] [address] PCP - Medical [place] [employer] 11/30/23 11/29/99 Aluminum Sheet Cutter Relationship Specialty Start Date End Date Robles Charles DO [address] [facility] [place] [address] PCP - General Internal Medicine 07/30/23 Deisy Villar PA [address] [place] [address] [place] [address] PCP - Medical [place] [employer] 11/30/23 11/29/99 Aluminum Sheet Cutter Relationship Specialty Start Date End Date Robles Charles DO [address] [facility] [place] [address] PCP - General Internal Medicine 07/30/23 Deisy Villar PA [address] [place] [address] [place] [address] PCP - Medical [place] [employer] 11/30/23 11/29/99 Aluminum Sheet Cutter Relationship Specialty Start Date End Date Robles Charles DO [address] [facility] [place] [address] PCP - General Internal Medicine 07/30/23 Deisy Villar, PA [address] [place] [address] Dr [place], [place] [phone] PCP - Medical [place] [employer] 11/30/23 11/29/99 Aluminum Sheet Cutter Relationship Specialty Start Date End Date Robles Charles DO [address] [facility] [place] [address] PCP - General Internal Medicine 07/30/23 Deisy Villar PA [address] [facility] [place] [address] PCP - Medical [place] [employer] 11/30/23 11/29/99 Aluminum Sheet Cutter Relationship Specialty Start Date End Date Robles Charles DO [address] [facility] [place] [address] PCP - General Internal Medicine 07/30/23 Deisy Villar PA [address] [place] [address] PCP - Medical [place] [employer] 11/30/23 11/29/99 Aluminum Sheet Cutter Relationship Specialty Start Date End Date Robles Charles DO [address] [facility] [place] [address] PCP - General Internal Medicine 07/30/23 Deisy Villar PA [address] [facility] [place] [address] PCP - Medical [place] [employer] 11/30/23 11/29/99 Goals (unrecognized section and content) Goals may be documented in a n alternate section INFORMATION SOURCE (unrecogn ized section and content) DATE CREATED AUTHOR 09/02/2022 [facility] DATE CREATED AUTHOR AUTHOR'S ORGANIZ ATION 09/23/2024 [facility] DATE CREATED AUTHOR AUTHOR'S ORGANIZ ATION 07/11/2025 [facility] EPIC FOR RECORDS PERTAINING TO [...] BE BASED ON THE PRIMARY CLINICAL RECORDS. [facility]. provides no warranty or guarantee of the accuracy or completeness of information in this document.
[2025-07-15 08:24] VITALS: BP 115/68; PULSE 90; TEMP 36.2
== END 2025-07-15 08:53 | disposition home or self-care (01) ==
LOC: US 07:58 → FBC 08:00
PROVIDERS: PCP Internal Medicine; Visit Provider Obstetrics & Gynecology
DX: O09.523 Supervision of elderly multigravida, third trimester (principal); Z3A.36 36 weeks gestation of pregnancy
CPT/HCPCS: 76818

== ENCOUNTER 2025-07-22 08:01 | Outpatient (OUT) | payer OTHER, SELFPAY ==
--- OUTSIDE RECORDS SUMMARY | 2025-07-10 13:50 | XMS_ITS | Encounter Summary ---
Author Organization [facility] Address [address] [place] [address] Care Team Providers Care Microbiology Analyst Name Role Phone Robles Charles DO Primary Care Provider [phone] Deisy Haji Unavailable Reason for Visit * Reason Comments Routine Visit Encounter Details Date Type Department Care Team (Late st Contact Info) Description 07/10/2025 1:50 PM EDT Routine [facility] [address] [place] [phone] Ángel Buckner DO [address] [facility] [place], [facility]11 Third trimester ([facility]); 35 weeks gestation of ([facility]) Social [...] Sign Reading Time Taken Comments Blood Pressure 126/74 07/10/2025 1:59 PM EDT Pulse - - Temperature - - Respiratory Rate - - Oxygen Saturation - - Inhaled Oxygen Concentration - - Weight 105 kg (232 lb 8 oz) 07/10/2025 1:59 PM E DT Height - - Body Mass Index 36.41 01/06/2024 2:20 PM EST documented in this encounter Progress Notes * Jayda Deiwtt NP - 07/10/2025 1:50 PM EDT Reason for Appointment: Patient ID: [...] SYSTEMS Review of Systems: Review of Systems OBJECTIVE Objective: OBGyn Exam Vitals: Estimated body mass index is 36.41 kg/m?? as calculated from the following: Height as of 01/06/24: 5' 7 . Weight as of this encounter: 232 lb 8 oz. BP: 126/74 Patient's last menstrual period was 11/02/2024. ASSESSMENT & PLAN ICD-10-CM 1. Third trimester ([facility]) Z34.93 CULTURE, GROUP B STREP WITH SUSCEPTIBLITY CULTURE, GROUP B STREP WITH SUSCEPTIBLITY 2. 35 weeks gestation of ([facility]) Z3A.35 POCT urinalysis dipstick manually resulted Return OB: Patient presents today for a routine obstetrics appointment. Patient is currently 35w5d . Patient states she is doing well but has complaints of being tired due to current . Patient has verbalizes frequent movement. labor precautions was discussed/given and patient was instructed to perform kick counts three times a day. Orders Placed This Encounter Procedures CULTURE, GROUP B STREP WITH SUSCEPTIBLITY POCT urinalysis dipstick manually resulted Follow Up: Patient is to return to office in 1 week for routine OB appointment. Documented by Jayda Dewitt NP on behalf of: Ángel Buckner DO documented in this encounter Plan of Treatment Upcoming Encounters Date Type Department Care Team (Late st Contact Info) Description 07/24/2025 11:20 AM EDT Routine [facility] CARRASQUILLO [address] [place], [place] [address] [place] [phone] Ángel Buckner, DO [address] [place] [id number] 08/03/2025 9:10 AM EDT Routine [facility]ree CARRASQUILLO [facility] [place] [phone] Ángel Buckner DO [address] [place] [id number] 09/19/2025 8:30 AM EDT Office Visit HERBIE CARRASQUILLO [facility] [place] [phone] Ángel Buckner, [address] [place] [phone] documented as of this encounter Procedures Procedure Name Priority Date/Time Associated Diagnosis Comments POCT URINALYSIS DIPSTICK Routine 07/10/2025 2:03 PM EDT 35 weeks gestation of ([facility]) CULTURE, GROUP B STREP WITH SUSCEPTIBLITY Routine 07/10/2025 1:45 PM EDT Third trimester ([facility]) documented in this encounter Results * (ABNORMAL) POCT urinalysis dipstick manually resulted (07/10/2025 2:03 PM EDT) Color, UA Yellow Clarity, UA Clear Glucose, UA Negative Negative - 2000(110) ++++ mg/dL Bilirubin, UA Negative Negative - 4(70) +++ mg/dL Ketones, UA Negative Negative - 160(16) ++++ mg/dL Spec Grav, UA 1.015 1 - 1.03 Blood, UA Negative Negative - 50 Ezequiel/mcL pH, UA 6.0 5 - 9 Protein, UA Negative Negative - 2000(20) ++++ mg/dL Urobilinogen, UA 0.2 0.2 - 12 mg/dL Leukocytes, UA Positive Negative - 500+++ Jason/mcL Comment:small Nitrite, UA Negative Negative - Positive Urine 07/10/2025 2:03 PM EDT [employer] Sita DO POINT OF CARE TEST ENTER/EDIT OR DERABLES Final Result * CULTURE, GROUP B STREP WITH SUSCEPTIBLITY (07/10/2025 1:45 PM EDT) Swab 07/10/2025 1:45 PM EDT [employer] Sita DO LAB BLOOD ORDERABLES Final Resul t EXTERNAL LAB documented in this encounter Visit Diagnoses Diagnosis Third trimester ([facility]) state, incidental 35 weeks gestation of ([facility]) documented in this encounter Care Teams Microbiology Analyst Relationship Specialty [place] [address] [place] [address] [place] [phone] PCP - General Internal Medicine 07/30/23 Deisy Haij PA [address] [place] [address] [place] [id number] PCP - Medical [employer] 11/30/23 11/29/99 documented as of this encounter
--- OUTSIDE RECORDS SUMMARY | 2025-07-17 14:50 | XMS_ITS | Encounter Summary ---
Author Organization [facility] Address [address] [place] [address] Care Team Providers Care Court Bailiff Name Role Phone Robles Charles DO Primary Care Provider [phone] Deisy Haji Unavailable Reason for Visit * Reason Comments Routine Visit Encounter Details Date Type Department Care Team (Late st Contact Info) Description 07/17/2025 2:50 PM EDT Routine NOMSheree [place] OBGYN [address] [facility] [place] [address] Ángel Buckner DO [address] [facility] [place] [address] 36 weeks gestation of ([facility]); Third trimester ([facility]); History of miscarriage; Multigravida of advanced maternal age in third trimester ([facility]); Excessive growth affecting management of in third trimester, single or unspecified fetus ([facility]) Social History Tobacco Use Types Packs/Day [...] note reviewed. Exam conducted with a manager drilling present. Vitals: Estimated body mass index is 36.77 kg/m?? as calculated from the following: Height as of 01/06/24: 5' 7 . Weight as of this encounter: 234 lb 12.8 oz. BP: 118/70 Patient's last menstrual period was 11/02/2024. ASSESSMENT & PLAN ICD-10-CM 1. 36 weeks gestation of ([facility]) Z3A.36 POCT urinalysis dipstick manually resulted 2. Third trimester ([facility]) Z34.93 POCT urinalysis dipstick manually resulted 3. History of miscarriage Z87.59 4. Multigravida of advanced maternal age in third trimester ([facility]) O09.523 5. Excessive growth affecting management of in third trimester, single or unspecified fetus ([facility]) O36.63X0 Patient presents today for a routine obstetrics appointment. Patient is currently 36w5d with a Estimated Date of Delivery: 08/09/25. Pelvic exam performed and patient is currently 2cm and 70%effaced. Patient to return to clinic in 1 week. Documented by MaryL ou Kearney LPN on behalf of: Ángel Buckner DO documented in this encounter Plan of Treatment Upcoming Encounters Date Type Department Care Team (Late st Contact Info) Description 07/24/2025 11:20 AM EDT Routine NOMSheree CARRASUQILLO [address] [facility] [place] [address] Ángel Buckner, DO [address] [place] [address] 08/03/2025 9:10 AM EDT Routine HERBIE CARRASQUILLO [address] [facility] [place] [phone] Ángel Buckner, DO [address] [place] [address] 09/19/2025 8:30 AM EDT Office Visit HERBIE CARRASQIULLO [facility] [place] [address] Ángel Buckner, DO [address] [facility] [place] [address] documented as of this encounter Procedures Procedure Name Priority Date/Time Associated Diagnosis Comments POCT URINALYSIS DIPSTICK Routine 07/17/2025 3:05 PM EDT 36 weeks gestation of ([facility]) Third trimester ([facility]) documented in this encounter Results * (ABNORMAL) [...] Positive Urine 07/17/2025 3:05 PM EDT Ángel uBckner DO POINT OF CARE TEST ENTER/EDIT OR DERABLES Final Result documented in this encounter Visit Diagnoses Diagnosis 36 weeks gestation of ([facility]) Third trimester ([facility]) state, incidental History of miscarriage Personal history of other genital system and obstetric disorders Multigravida of advanced maternal age in third trimester ([facility]) Excessive growth affecting management of in third trimester, single or unspecified fetus ([facility]) documented in this encounter Care Teams Court Bailiff Relationship Specialty Start Date End Date Robles Charles DO [address] [facility] [place] [address] PCP - General Internal Medicine 07/30/23 Deisy Haji PA [address] [place] [address] [place] [address] PCP - Medical [place] [employer] 11/30/23 11/29/99 documented as of this encounter
--- NOTE | 2025-07-22 07:54 | US_ITS ---
[place] [id number] Patient Name: PHILLIP HERNANDEZ MRN: [id number] date: 1990 Sex: F Assigned Patient Location: Current Patient Location: Accession/Order Number: [id number] Exam Date: 07/22/2025 07:58 Report Date: 07/22/2025 17:02 At the request of: LE DELVALLE DO Procedure: US OB BPP w non-stress US OB BPP w non-stress 07/22/2025 8:39 AM SIGNS AND SYMPTOMS: ^Multigravida of advanced maternal age PROTOCOL: Transabdominal sonographic imaging of the gravid uterus COMPARISON: None FINDINGS: heart rate: 132 bpm Amniotic fluid index: 15.5 cm. The deepest vertical pocket measures 5.95 cm. Estimated gestational age: 37 weeks and 3 days. Biophysical profile: breathing movements: 2/2 Gross body movements: 2/2 tone: 2/2 Amniotic fluid volume: 2/2 US/US OB BPP w non-stress IMPRESSION: Biophysical profile score: /8 Impression dictated by: Roddy Yusuf M.D. 07/22/2025 5:02 PM Dictation Location[facility] Electronically authenticated by: [id number] Y Date: 07/22/2025 17:02
--- OUTSIDE RECORDS SUMMARY | 2025-07-22 08:03 | XMS_ITS | Encounter Summary ---
Author Organization [facility] Address [address] [place] [address] Care Team Providers Care Lavender Farm Worker Name Role Phone MelvinRobles Primary Care Provider [phone] Deisy Haji Unavailable Encounter Details Date Type Department Care Team (Late st Contact Info) Description 03/09/2025 Orders Only NOMS Silvina CARRASQUILLO [address] [place] [address] Camille Lawrence LPN [address] [place] [id number] Social History Tobacco Use Types Packs/Day Years [...] 07/24/2025 11:20 AM EDT Routine NOMSheree CARRASQUILLO [address] [place] [address] [place] [phone] Ángel Buckner, DO [address] [facility] [place] [address] 08/03/2025 9:10 AM EDT Routine NOMSheree CARRASQUILLO [address] [place] [address] [place] [phone] Ángel Buckner, DO [address] [place], [place] [address] 09/19/2025 8:30 AM EDT Office Visit NOMSheree CARRASQUILLO [address] [place] [address] [place] [phone] Ángel Buckner, DO [address] [facility] [address] [place], [id number] documented as of this encounter Procedures Procedure Name Priority Date/Time Associated Diagnosis Comments PAP SMEAR Routine 03/02/2025 12:00 AM EDT documented in this encounter Results * Pap Smear (03/02/2025 12:00 AM EDT) Swab Cervical swab / Unknown Sita Nurse [facility] Ob LAB CYTOLOGY ORDERABLES Final Result EXTERNAL LAB documented in this encounter Visit Diagnoses Not on filedocumented in this encounter Care Teams Lavender Farm Worker Relationship Specialty Start Date End Date Robles Charles DO [address] [place] [address] PCP - General Internal Medicine 07/30/23 Deisy Haji PA [address] [place], [place] [address] PCP - Medical [place] [employer] 11/30/23 11/29/99 documented as of this encounter
--- OUTSIDE RECORDS SUMMARY | 2025-07-22 08:03 | XMS_ITS | Encounter Summary ---
Author Organization [facility] Address [address] [place] [address] Care Team Providers Care Vehicle Modification Technician Name Role Phone MlevinRobles [facility] Primary Care Provider Deisy Haji Unavailable Encounter Details Date Type Department Care Team (Late st Contact Info) Description 07/15/2025 Clinisync Result Encounter NOMS External Department Unsolicited Le Buckner DO [address] [facility] [place] [address] Social History Tobacco Use Types [...] Info) Description 07/24/2025 11:20 AM EDT Routine N[facility]S Natasha OBGYN [address] [place] [address] [place] [phone] Le Buckner, DO [address] [facility] [place] [address] 08/03/2025 9:10 AM EDT Routine NOMS Natasha CARRASQUILLO [address] [place] [address] [place] [phone] Le Buckner, DO [address] [facility] [place] [address] 09/19/2025 8:30 AM EDT Office Visit NOMSheree CARRASQUILLO [address] [place] [address] [place] [address] Le Buckner, DO [address] [facility] [place] [address] documented as of this encounter Procedures Procedure Name Priority Date/Time Associated Diagnosis Comments US OB BPP W NON-STRESS 07/15/2025 9:18 AM EDT documented in this encounter Results * US OB BPP W NON-STRESS (07/15/2025 9:18 AM EDT) Anatomical Region Laterality Modality Other 07/15/2025 9:18 AM EDT Narrative 07/15/2025 9:20 AM EDT The [address] [address] Ultrasound Report Signed Patient: PHILLIP HERNANDEZ MR#: [id number] : 1990 Acct:[id number] Age/Sex: 35 / F ADM Date: 07/15/25 Loc: US Attending Dr: Le Buckner D.O. Ordering Physician: Le Buckner D.O. Date of Service: 07/15/25 Procedure(s): US OB BPP w non-stress Accession Number(s): [id number] cc: Robles Charles D.O.; Le Buckner D.O. The [address] [address] Patient Name: PHILLIP HERNANDEZ MRN: [id number] date: 1990 Sex: F Assigned Patient Location: [facility] Current Patient Location: Accession/Order Number: [id number] Exam Date: 07/15/2025 09:17 Report Date: 07/15/2025 09:18 At the request of: LE BUCKNER DO Procedure: US OB BPP w non-stress Biophysical profile. Reason for exam: Advanced maternal age COMPARISON: 07/08/2025 TECHNIQUE: Transabdominal imaging of the gravid uterus was obtained. FINDINGS: The carbider reports a BPP of 8 out of 8. MARTY is normal at 14 cm. heart rate 136 bpm. US/US OB BPP w non-stress IMPRESSION: BPP 8 out of 8. Impression dictated by: Justin Mack Jr., D.O. 07/15/2025 9:18 AM Dictation Location: [place] [address] Electronically authenticated by: [id number] Y Date: 07/15/2025 09:18 Dictated By: Justin Mack M.D. Signed By: 07/15/25919 DD/ 7 TD/TT: Swatch Cutter: Procedure Note Radiology, Radiologist, MD - 07/15/2025 [place] [address] Ultrasound Report Signed Patient: PHILLIP HERNANDEZ LMR#: [id number] : 1990Acct:[id number] Age/Sex: 35 / FADM Date: 07/15/25 Loc: US Attending Dr: Le Buckner D.O. Ordering Physician: Le Buckner D.O. Date of Service: 07/15/25 Procedure(s): US OB BPP w non-stress Accession Number(s): [id number] cc: Robles Charles D.O.; Le Buckner D.O. [facility] [address] [place], [place] [address] Patient Name: PHILLIP HERNANDEZ MRN: [facility]:[id number] date: 1990 Sex: F Assigned Patient Location: [facility] Current Patient Location: Accession/Order Number: [id number] Exam Date: 07/15/2025 09:17 Report Date: 07/15/2025 09:18 At the request of: LE BUCKNER DO Procedure: US OB BPP w non-stress Biophysical profile. Reason for exam: Advanced maternal age COMPARISON: 07/08/2025 TECHNIQUE: Transabdominal imaging of the gravid uterus was obtained. FINDINGS: The carbider reports a BPP of 8 out of 8. MARTY is normal at14 cm. heart rate 136 bpm. US/US OB BPP w non-stress IMPRESSION: BPP 8 out of 8. Impression dictated by: Justin Mack Jr., D.O. 07/15/2025 9:18 AM Dictation Location: [place] [address] Electronically authenticated by: [id number] Y Date: 509:18 Dictated By: Justin Mack M.D. Signed By:07/15/25919 DD/ 7 TD/TT: Swatch Cutter: Le Buckner DO [facility] Final Result documented in this encounter Visit Diagnoses Not on filedocumented in this encounter Care Teams Vehicle Modification Technician Relationship Specialty Start Date End Date Robles Charles DO [address] [place] [address] PCP - General Internal Medicine 07/30/23 Deisy Haji PA [address] [place] [address] [place] [address] PCP - Medical [place] [employer] 11/30/23 11/29/99 documented as of this encounter
--- OUTSIDE RECORDS SUMMARY | 2025-07-22 08:03 | XMS_ITS | Clinical Summary ---
Author Organization [facility] Address [address] [place] [address] Care Team Providers Care Time Analysis Clerk Name Role Phone MelvinoRbles Justus CRESPO Primary Care Provider [phone] Deisy Haji Unavailable Allergies Active Allergy Reactions Criticality Noted [...] Encounters Date Type Department Care Team Description 07/17/2025 2:50 PM EDT Routine GERMAINS Natasha CARRASQUILLO [address] [place] [address] [place] [address] Le Buckner DO 36 weeks gestation of ([facility]); Third trimester ([facility]); History of miscarriage; Multigravida of advanced maternal age in third trimester ([facility]); Excessive growth affecting management of in third trimester, single or unspecified fetus ([facility]) 07/17/2025 [place] [address] Le Buckner, DO 07/15/2025 Clinisync Result Encounter NOMS External Department Unsolicited Le Buckner, DO 07/10/2025 1:50 PM [place] [address] Le Buckner, DO Third trimester ([facility]); 35 weeks gestation of ([facility]) 07/10/2025 [place] [address] Le Buckner, DO 07/08/2025 Clinisync Result Encounter NOMS External Department Unsolicited Le Buckner, DO 07/01/2025 Clinisync Result Encounter NOMS External Department Unsolicited Le Buckner, DO 06/26/2025 1:10 PM [place] [phone] Le Buckner, DO Third trimester ([facility]); 33 weeks gestation of ([facility]) 06/26/2025 11:30 AM EDT [place]illary [place] [phone] Excessive growth affecting management of in third trimester, single or unspecified fetus ([facility]) 06/24/2025 Clinisync Result Encounter NOMS External Department Unsolicited Le Buckner, DO 06/17/2025 Clinisync Result Encounter NOMS External Department Unsolicited Le Buckner, DO 06/12/2025 2:10 [place] [phone] Le Buckner, Excessive growth affecting management of in third trimester, single or unspecified fetus ([facility]) (Primary Dx); 31 weeks gestation of ([facility]); Third trimester ([facility]); History of miscarriage; Multigravida of advanced maternal age in third trimester ([facility]) 06/12/2025 Bamboo flowsheet NOMS Natasha CARRASQUILLO [address] [place] [address] [place] [address] Le Buckner, DO 06/10/2025 Clinisync Result Encounter NOMS External Department Unsolicited Le Buckner, DO 06/03/2025 Clinisync Result Encounter NOMS External Department Unsolicited Le Buckner, 05/30/2025 8:50 AM EDT Routine NOMS Natasha Dean [facility] [place] [address] Le Buckner, Third trimester ([facility]); 29 weeks gestation of ([facility]); History of miscarriage; Multigravida of advanced maternal age in third trimester ([facility]) 05/30/2025 Bamboo flowsheet NOMS Natasha CARRASQUILLO [address] [place] [address] [place] [address] Le Buckner, DO 05/11/2025 Clinisync Result Encounter NOMS External Department Unsolicited Jayda Dewitt NP 05/01/2025 8:30 AM EDT Routine NOMS Natasha Dean [facility] [place] [phone] Deisy Haji PA size inconsistent with dates ([facility]) (Primary Dx); Second trimester ([facility]); 25 weeks gestation of ([facility]) 05/01/2025 Bamboo flowsheet NOMS Natasha CARRASQUILLO [address] [place] [address] [place] [address] Deisy Haji PA from Last 3 Months Family History Medical [...] oz) 07/17/2025 2:59 P M EDT Height 170.2 cm (5' 7 ) 01/06/2024 2:20 PM EST Body Mass Index 36.77 01/06/2024 2:20 PM EST Plan of Treatment Upcoming Encounters Date Type Department Care Team (Late st Contact Info) Description 07/24/2025 11:20 AM EDT Routine NOMS Natasha CARRASQUILLO [address] [facility] [place] [address] Le Buckner, DO [address] [place], [place] [phone] 08/03/2025 9:10 AM EDT Routine NOMS Natasha CARRASQUILLO [address] [place] [address] Le Buckner, DO [address] [place], [place] [address] 09/19/2025 8:30 AM EDT Office Visit NOMSheree Kaur OBGYN [address] [facility] [place] [address] Le Buckner, [address] [facility] [place] [address] Health Maintenance Due Date Last Done Comments Influenza Vaccine (#1) 2025 09/15/2023 Pap Smear 03/02/2028 03/02/2025, 09/13/2024, 05/31 Cervical Cancer Screening 09/13/2029 HPV/Cotest 09/13/2029 Procedures Procedure Name Priority Date/Time Associated Diagnosis Comments POCT URINALYSIS DIPSTICK Routine 07/17/2025 3:05 PM EDT 36 weeks gestation of ([facility]) Third trimester ([facility]) US OB BPP W NON-STRESS 07/15/2025 9:18 AM EDT POCT URINALYSIS DIPSTICK Routine 07/10/2025 2:03 PM EDT 35 weeks gestation of ([facility]) CULTURE, GROUP B STREP WITH SUSCEPTIBLITY Routine 07/10/2025 1:45 PM EDT Third trimester ([facility]) US OB BPP W NON-STRESS 07/08/2025 9:19 AM EDT US OB BPP W NON-STRESS 07/01/2025 8:07 PM EDT POCT URINALYSIS DIPSTICK Routine 06/26/2025 1:26 PM EDT Third trimester ([facility]) 33 weeks gestation of ([facility]) US OB FOLLOW UP TRANSABDOMINAL APPROACH Routine 06/26/2025 11:22 AM EDT Excessive growth affecting management of in third trimester, single or unspecified fetus ([facility]) US OB BPP W NON-STRESS 06/24/2025 9:34 AM EDT US OB BPP W NON-STRESS 06/17/2025 9:20 AM EDT US OB BPP W NON-STRESS 06/10/2025 6:38 PM EDT US OB BPP W NON-STRESS 06/03/2025 2:23 PM EDT POCT URINALYSIS DIPSTICK Routine 05/30/2025 9:17 AM EDT Third trimester ([facility]) 29 weeks gestation of ([facility]) US OB GROWTH 05/11/2025 2:40 PM EDT PAP SMEAR Routine 03/02/2025 12:00 AM EDT from Last 3 Months or Most Recently Relevant to Health Maintenance Results * (ABNORMAL) POCT urinalysis dipstick manually resulted (07/17/2025 3:05 PM EDT) Only the most recent of4 resultswithin the time period is included. Color, [...] - Positive Urine 07/17/2025 3:05 PM EDT us Le Buckner DO POINT OF CARE TEST ENTER/EDIT OR DERABLES Final Result * US OB BPP W NON-STRESS (07/15/2025 9:18 AM EDT) Only the most recent of7 resultswithin the time period is included. Anatomical Region Laterality Modality Other 07/15/2025 9:18 AM EDT Narrative 07/15/2025 9:20 [place] [address] Ultrasound Report Signed Patient: PHILLIP REYES MR#: [id number] : 1990 Acct:[id number] Age/Sex: 35 / F ADM Date: 07/15/25 Loc: US Attending Dr: Le Buckner D.O. Ordering Physician: Le Buckner D.O. Date of Service: 07/15/25 Procedure(s): US OB BPP w non-stress Accession Number(s): [id number] cc: Robles Charles D.O.; Le Buckner D.O. [address] [address] Patient Name: PHILLIP REYES MRN: [id number] date: 1990 Sex: F Assigned Patient Location: [facility] Current Patient Location: Accession/Order Number: [id number] Exam Date: 07/15/2025 09:17 Report Date: 07/15/2025 09:18 At the request of: LE BUCKNER DO Procedure: US OB BPP w non-stress Biophysical profile. Reason for exam: Advanced maternal age COMPARISON: 07/08/2025 TECHNIQUE: Transabdominal imaging of the gravid uterus was obtained. FINDINGS: The educational consultant reports a BPP of 8 out of 8. MARTY is normal at 14 cm. heart rate 136 bpm. US/US OB BPP w non-stress IMPRESSION: BPP 8 out of 8. Impression dictated by: Justin Mack Jr., D.O. 07/15/2025 9:18 AM Dictation Location: [place] [address] Electronically authenticated by: [id number] Y Date: 07/15/2025 09:18 Dictated By: Justin Mack M.D. Signed By: 07/15/25919 DD/ 7 TD/TT: Porter Marina: Procedure Note Radiology, Radiologist, - 07/15/2025 [place] [address] Ultrasound Report Signed Patient: PHILLIP REYES LMR#: [id number] : 1990Acct:[id number] Age/Sex: 35 / FADM Date: 07/15/25 Loc: US Attending Dr: Le Buckner D.O. Ordering Physician: Le Buckner D.O. Date of Service: 07/15/25 Procedure(s): US OB BPP w non-stress Accession Number(s): [id number] cc: Robles Charles D.O.; Le Buckner D.O. The [place] [id number] Patient Name: PHILLIP REYES MRN: [facility]:[id number] date: 1990 Sex: F Assigned Patient Location: [facility] Current Patient Location: Accession/Order Number: [id number] Exam Date: 07/15/2025 09:17 Report Date: 07/15/2025 09:18 At the request of: LE BUCKNER DO Procedure: US OB BPP w non-stress Biophysical profile. Reason for exam: Advanced maternal age COMPARISON: 07/08/2025 TECHNIQUE: Transabdominal imaging of the gravid uterus was obtained. FINDINGS: The educational consultant reports a BPP of 8 out of 8. MARTY is normal at14 cm. heart rate 136 bpm. US/US OB BPP w non-stress IMPRESSION: BPP 8 out of 8. Impression dictated by: Zully Jaramillo Jr.OCuauhtemoc 07/15/2025 9:18 AM Dictation Location: [place] [address] Electronically authenticated by: [id number] Y Date: 9:18 Dictated By: Justin Mack M.D. Signed By:07/15/25919 DD/ 7 TD/TT: Porter Marina: us Le Sita DO [facility] Final Result * CULTURE, GROUP B STREP WITH SUSCEPTIBLITY (07/10/2025 1:45 PM EDT) Swab 07/10/2025 1:45 PM EDT us Le Sita DO LAB BLOOD ORDERABLES Final Resul t EXTERNAL LAB * US OB follow up transabdominal approach [...] 08/02/2025. Interpreted by: Electronically signed by EVELYNE RAMSEY II, MD, PHD at 26-Jun-2025 11:42:39 PM [facility] Procedure Note Evelyne Ramsey MD - 06/26/2025 EXAM: US OB FOLLOW [...] 08/02/2025. Interpreted by: Electronically signed by EVELYNE RAMSEY II, MD, PHD [id number] 11:42:39 PM [facility] us Deisy MUNOZ IMRyan OB US PROCEDURES Final Resul t * US OB GROWTH (05/11/2025 2:40 PM EDT) Anatomical Region Laterality Modality Other 05/11/2025 2:40 PM EDT Narrative 05/11/2025 2:42 PM EDT The [address] [address] Ultrasound Report Signed Patient: PHILLIP REYES MR#: [id number] : 1990 Acct:[id number] Age/Sex: 35 / F ADM Date: 05/11/25 Loc: US Attending Dr: Jayda Dewitt Ordering Physician: Jayda Dewitt Date of Service: 05/11/25 Procedure(s): US OB growth Accession Number(s): [id number] cc: Robles Charles D.O.; Jayda Dewitt The [place] [address] Patient Name: PHILLIP REYES MRN: [facility]:[id number] date: 1990 Sex: F Assigned Patient Location: US Current Patient Location: US Accession/Order Number: [id number] Exam Date: 05/11/2025 14:38 Report Date: 05/11/2025 14:40 At the request of: JAYDA DEWITT Procedure: US OB growth Growth ultrasound. [...] Jr., D.O. 05/11/2025 2:40 PM Dictation Location: [place] [address] Electronically authenticated by: [id number] Y Date: 05/11/2025 14:40 Dictated By: Justin Mack M.D. Signed By: 05/11/25 1442 DD/ 1440 TD/TT: Porter Marina: Procedure Note Radiology, Radiologist, MD - 05/11/2025 [place] [address] Ultrasound Report Signed Patient: PHILLIP REYES LMR#: [id number] : 1990Acct:[id number] Age/Sex: 35 / FADM Date: 05/11/25 Loc: US Attending Dr: Jayda Dewitt Ordering Physician: Jayda Dewitt Date of Service: 05/11/25 Procedure(s): US OB growth Accession Number(s): [id number] cc: Robles Charles D.O.; Jayda Dewitt [place] [address] Patient Name: PHILLIP REYES MRN: [facility]:[id number] date: 1990 Sex: F Assigned Patient Location: US Current Patient Location: US Accession/Order Number: [id number] Exam Date: 05/11/2025 14:38 Report Date: 05/11/2025 14:40 At the request of: JAYDA DEWITT Procedure: US OB growth Growth ultrasound. Reason for exam: size. COMPARISON: Ultrasound 03/20/2025. TECHNIQUE: Transabdominal imaging of the gravid uterus was obtained. FINDINGS: Single live intrauterine 28 weeks 1 day by anatomic measurements. Appropriate growth by dating. Estimated weight wk1552 g which is the 80th percentile. heart rate 1 54 bpm. positionis cephalic at time of scanning. MARTY is normal at 13.5 cm. US/US OB growth IMPRESSION: Single live intrauterine 28 weeks 1 day by anatomic measurements. Appropriate growth. Impression dictated by: Justin Mack Jr., D.O. 05/11/2025 2:40 PM Dictation Location: [place] [address] Electronically authenticated by: [id number] Y Date: 4:40 Dictated By: Justin Mack M.D. Signed By:05/11/25 1442 DD/ 1440 TD/TT: Porter Marina: Jayda Dewitt [facility] Final Resul t * Pap Smear (03/02/2025 12:00 AM EDT) Swab Cervical swab / Unknown Sita Nurse [facility] Ob LAB CYTOLOGY ORDERABLES Final Result EXTERNAL LAB from Last 3 Months or Most Recently Relevant to Health Maintenance Insurance [employer] Care Teams Time Analysis Clerk Relationship Specialty Start Date End Date Robles Charles DO [address] [facility] [place] [address] PCP - General Internal Medicine 07/30/23 Deisy Haji PA [address] [place] [address] [place] [address] PCP - Medical [place] [employer] 11/30/23 11/29/99
--- OUTSIDE RECORDS SUMMARY | 2025-07-22 08:03 | XMS_ITS | Encounter Summary ---
Author Organization [facility] Address [address] [place] [address] Care Team Providers Care Optical Effects Line Up Person Name Role Phone MelvinRobels Justus CRESPO Primary Care Provider [phone] Deisy Haji Unavailable Encounter Details Date Type Department Care Team (Late st Contact Info) Description 07/08/2025 Clinisync Result Encounter NOMS External Department Unsolicited Le Buckner DO [address] [facility] [place] [address] Social History Tobacco Use Types [...] 11:20 AM EDT Routine NOMS Natasha OBGYN [address] [place] [address] [place] [address] Le Buckner, DO [address] [facility] [place] [address] 08/03/2025 9:10 AM EDT Routine NOMS Natasha CARRASQUILLO [address] [place] [address] [place] [phone] Le Buckner, DO [address] [facility] [place] [address] 09/19/2025 8:30 AM EDT Office Visit NOMSheree CARRASQUILLO [address] [place] [address] [place] [address] Le Buckner, DO [address] [facility] [place] [address] documented as of this encounter Procedures Procedure Name Priority Date/Time Associated Diagnosis Comments US OB BPP W NON-STRESS 07/08/2025 9:19 AM EDT documented in this encounter Results * US OB BPP W NON-STRESS (07/08/2025 9:19 AM EDT) Anatomical Region Laterality Modality Other 07/08/2025 9:19 AM EDT Narrative 07/08/2025 9:22 AM EDT The [address] [address] Ultrasound Report Signed Patient: PHILLIP HERNANDEZ MR#: [id number] : 1990 Acct:[id number] Age/Sex: 35 / F ADM Date: 07/08/25 Loc: US Attending Dr: Le Buckner D.O. Ordering Physician: Le Buckner D.O. Date of Service: 07/08/25 Procedure(s): US OB BPP w non-stress Accession Number(s): [id number] cc: Robles Charles D.O.; Le Buckner D.O. The [address] [address] Patient Name: PHILLIP HERNANDEZ MRN: [id number] date: 1990 Sex: F Assigned Patient Location: [facility] Current Patient Location: Accession/Order Number: [id number] Exam Date: 07/08/2025 09:19 Report Date: 07/08/2025 09:19 At the request of: LE BUCKNER DO Procedure: US OB BPP w non-stress Biophysical profile. Reason for exam: History of miscarriage COMPARISON: 07/01/2025 TECHNIQUE: Transabdominal imaging of the gravid uterus was obtained. FINDINGS: The technical specialist reports a BPP of 8 out of 8. MARTY is normal at 12.5 cm. heart rate 135 bpm. US/US OB BPP w non-stress IMPRESSION: BPP 8 out of 8. Impression dictated by: Justin Mack Jr., D.O. 07/08/2025 9:19 AM Dictation Location: [place] [address] Electronically authenticated by: [id number] Y Date: 07/08/2025 09:19 Dictated By: Justin Mack M.D. Signed By: 07/08/25921 DD/ 8 TD/TT: Rubber Curer: Procedure Note Radiology, Radiologist, MD - 07/08/2025 [place] [address] Ultrasound Report Signed Patient: PHILLIP HERNANDEZ LMR#: [id number] : 1990Acct:[id number] Age/Sex: 35 / FADM Date: 07/08/25 Loc: US Attending Dr: Le Buckner D.O. Ordering Physician: Le Buckner D.O. Date of Service: 07/08/25 Procedure(s): US OB BPP w non-stress Accession Number(s): [id number] cc: Robles Charles D.O.; Le Buckner D.O. The [facility] [address] [place], [place] [address] Patient Name: PHILLIP HERNANDEZ MRN: [facility]:[id number] date: 1990 Sex: F Assigned Patient Location: [facility] Current Patient Location: Accession/Order Number: [id number] Exam Date: 07/08/2025 09:19 Report Date: 07/08/2025 09:19 At the request of: LE BUCKNER DO Procedure: US OB BPP w non-stress Biophysical profile. Reason for exam: History of miscarriage COMPARISON: 07/01/2025 TECHNIQUE: Transabdominal imaging of the gravid uterus was obtained. FINDINGS: The technical specialist reports a BPP of 8 out of 8. MARTY is normal at12.5 cm. heart rate 135 bpm. US/US OB BPP w non-stress IMPRESSION: BPP 8 out of 8. Impression dictated by: Justin Mack Jr., D.O. 07/08/2025 9:19 AM Dictation Location: [facility] Electronically authenticated by: [id number] Y Date: 509:19 Dictated By: Justin Mack M.D. Signed By:07/08/25921 DD/ 8 TD/TT: Rubber Curer: Le Buckner DO [facility] Final Result documented in this encounter Visit Diagnoses Not on filedocumented in this encounter Care Teams Optical Effects Line Up Person Relationship Specialty Start Date End Date Robles Charles DO [address] [place] [address] PCP - General Internal Medicine 07/30/23 Deisy Haji PA [address] [place] [address] [place] [address] PCP - Medical [place] [employer] 11/30/23 11/29/99 documented as of this encounter
--- OUTSIDE RECORDS SUMMARY | 2025-07-22 08:03 | XMS_ITS | Encounter Summary ---
Author Organization [facility] Address [address] [place] [address] Care Team Providers Care Spray Gun Striper Name Role Phone Melvin Robles Jerome DO Primary Care Provider [phone] Deisy Haji Unavailable Encounter Details Date Type Department Care Team (Late st Contact Info) Description 07/17/2025 Bamboo flowsheet NOMS Natasha OBROSA ISELA [address] [facility] [place] [address] Ángel Buckner DO [address] [facility] [address] Arash Kaur, [facility]11 Social History Tobacco Use Types Packs/Day Years [...] Description 07/24/2025 11:20 AM EDT Routine NOMSheree Kaur OBGYN [address] [facility] [place] [address] Ángel Buckner, DO [address] [facility] [place] [address] 08/03/2025 9:10 AM EDT Routine NOMSheree FISHERN [address] [place] [address] Ángel Buckner, DO [address] [place] [address] 09/19/2025 8:30 AM EDT Office Visit NOMSheree CARRASQUILLO [address] [facility] [address] Ángel Buckner, DO [address] [facility] [address] Arash [place]aur, [facility]11 documented as of this encounter Visit Diagnoses Not on filedocumented in this encounter Care Teams Spray Gun Striper Relationship Specialty Start Date End Date Robles Charles DO [address] [facility] [address] PCP - General Internal Medicine 07/30/23 Deisy Haji PA [address] [place] [address] [place] [address] PCP - Medical [place] [employer] 11/30/23 11/29/99 documented as of this encounter
--- OUTSIDE RECORDS SUMMARY | 2025-07-22 08:03 | XMS_ITS | Encounter Summary ---
Author Organization [facility] Address [address] [place] [address] Care Team Providers Care Coding Quality Coordinator Name Role Phone MelvinRobles Justus CRESPO Primary Care Provider [phone] Deisy Haji Unavailable Encounter Details Date Type Department Care Team (Late Contact Info) Description 02/02/2025 Abstract NOMS Natasha CARRASQUILLO [address] [facility] [address] Ángel Buckner DO [address] [facility] [address] Arash [place]aur, [facility]11 Social History Tobacco Use Types [...] Description 07/24/2025 11:20 AM EDT Routine NOMSheree FROSTGYN [address] [place] [address] [place] [address] Ángel Buckner, DO [address] [facility] [address] 08/03/2025 9:10 AM EDT Routine NOMSheree Kaur OBGYN [address] [place] [address] [place] [phone] Ángel Buckner, DO [address] [place] [address] 09/19/2025 8:30 AM EDT Office Visit NOMSheree FROSTGYManuel [address] [place] [address] [place] [address] Ángel Buckner, DO [address] [facility] [address] [place]aur, [facility]11 documented as of this encounter Visit Diagnoses Not on filedocumented in this encounter Care Teams Coding Quality Coordinator Relationship Specialty Start Date End Date Robles Charles DO [address] [facility] [place] [address] PCP - General Internal Medicine 07/30/23 Deisy Haji PA [address] [place] [address] [place] [address] PCP - Medical [place] [employer] 11/30/23 11/29/99 documented as of this encounter
--- OUTSIDE RECORDS SUMMARY | 2025-07-22 08:03 | XMS_ITS | Encounter Summary ---
Author Organization [facility] Address [address] [place] [address] Care Team Providers Care Ethanol Operations Manager Name Role Phone Melvin Robles Jerome DO Primary Care Provider [phone] Deisy Haji Unavailable Encounter Details Date Type Department Care Team (Late st Contact Info) Description 07/10/2025 Bamboo flowsheet NOMS Natasha OBROSA ISELA [address] [facility] [place] [address] Ángel Buckner DO [address] [facility] [address] Arash [place]aur, [facility]11 Social History Tobacco Use Types Packs/Day Years [...] AM EDT Routine NOMSheree Kaur OBGYN [address] [facility] [place] [address] Ángel Buckner, DO [address] [facility] [place] [address] 08/03/2025 9:10 AM EDT Routine NOMSheree FISHERN [address] [place] [address] Ángel Buckner, DO [address] [place] [address] 09/19/2025 8:30 AM EDT Office Visit NOMSheree CARRASQUILLO [address] [facility] [facility] [phone] Ángel Buckner, DO [address] [facility] [address] Arash [place]aur, [facility]11 documented as of this encounter Visit Diagnoses Not on filedocumented in this encounter Care Teams Ethanol Operations Manager Relationship Specialty Start Date End Date Robles Charles DO [address] [facility] [place] [address] PCP - General Internal Medicine 07/30/23 Deisy Haji PA [address] [place] [address] [place] [address] PCP - Medical [place] [employer] 11/30/23 11/29/99 documented as of this encounter
--- OUTSIDE RECORDS SUMMARY | 2025-07-22 08:03 | XMS_ITS | Encounter Summary ---
Author Organization [facility] Address [address] [place] [address] Care Team Providers Care Medical Social Worker Name Role Phone MelvinRobles Primary Care Provider [phone] Deisy Haji Unavailable Encounter Details Date Type Department Care Team (Late Contact Info) Description 08/06/2023 Clinisync Result Encounter [facility] External Department Unsolicited Le Buckner DO [address] [place] [address] Social History Tobacco Use Types Packs/Day [...] AM EDT Routine [facility] [address] [place] [address] Le Buckner DO [address] [place], [place] [id number] 08/03/2025 9:10 AM EDT Routine [facility] [address] [place] [address] [place] [phone] Le Buckner, [address] [facility] [place] [address] 09/19/2025 8:30 AM EDT Office Visit [facility] [address] [facility] [place] [phone] Le Buckner, [address] [facility] [address] [place], [place] [id number] documented as of this encounter Procedures Procedure Name Priority Date/Time Associated Diagnosis Comments US OB TRANSVAGINAL 08/06/2023 4: 44 PM EDT documented in this encounter Results * US OB TRANSVAGINAL (08/06/2023 4:44 PM EDT) Anatomical Region Laterality Modality Other 08/06/2023 4:44 PM EDT Narrative 08/06/2023 4:44 PM EDT The [address] [address] Ultrasound Report Signed Patient: Phillip Hernandez MR#: [id number] : 1990 Acct:[id number] Age/Sex: 33 / F ADM Date: 08/06/23 Loc: US Attending Dr: Le Buckner D.O. Ordering Physician: Le Buckner D.O. Date of Service: 08/06/23 Procedure(s): US OB transvaginal Accession Number(s): [id number] cc: Le Buckner D.O.; Physician,Non-Staff Lauri The [address] [address] Patient Name: PHILLIP HERNANDEZ MRN: [facility]:[id number] date: 1990 Sex: F Assigned Patient Location: US Current Patient Location: US Accession/Order Number: [id number] Exam Date: 08/06/2023 09:32 Report Date: 08/06/2023 [...] Dictated By: Nava Yeung M.D. Signed By: 08/06/237 DD/ 43 TD/TT: Meat Packager: Procedure Note Radiology, Radiologist, MD - 08/21/2023 [place] [address] Ultrasound Report Signed Patient: Phillip Hernandez LMR#: [id number] : 1990Acct:[id number] Age/Sex: 33 / FADM Date: 08/06/23 Loc: US Attending Dr: Le Buckner D.O. Ordering Physician: Le Buckner D.O. Date of Service: 08/06/23 Procedure(s): US OB transvaginal Accession Number(s): [id number] cc: Le Buckner D.O.; Physician,Non-Staff Lauri The [address] [address] Patient Name: PIHLLIP HERNANDEZ MRN: [id number] date: 1990 Sex: F Assigned Patient Location: US Current Patient Location: US Accession/Order Number: [id number] Exam Date: 08/06/2023 09:32 Report Date: 08/06/2023 [...] 16:44 Dictated By: Nava Yeung M.D. Signed By:08/06/237 DD/ 43 TD/TT: Meat Packager: us Le Buckner DO [facility] Final Result documented in this encounter Visit Diagnoses Not on filedocumented in this encounter Care Teams Medical Social Worker Relationship Specialty Start Date End Date Robles Charles DO [address] [facility] [place] [address] PCP - General Internal Medicine 07/30/23 Deisy Haji PA [address] [place] [address] [place] [address] PCP - Medical [employer] 11/30/23 11/29/99 documented as of this encounter
--- OUTSIDE RECORDS SUMMARY | 2025-07-22 08:04 | XMS_ITS | CCD ---
Author Organization [facility] Care Team Providers Care Head Charger Name Role Phone Subha Dillon Unavailable Elsi Mayer Unavailable MD Liz Conteh Primary Care Provider DO Delano Francis Attending Provider [phone] SITA, DR LUJAN Consulting Unavailable SIAT, DR LUJAN Admitting Unavailable REQUEST, DR RAIN LISTED Primary Care Unavaila jt BUCKNER, DR LUJAN Attending Unavailable NELA, DR SEARS Attending Unavailable NELA, DR SEARS Consulting Unavailable NELA, DR SEARS Admitting Unavailable REQUEST, DR RAIN LISTED Primary Care Unavaila Kiya Gonsalves Unavailable MD Derick Timmons Attending Provider [phone] SHANNON Schaffer Attending Provider Robles Charles Unavailable MD Liz Conteh Primary Care Provider [phone] DO Delano Francis Attending Provider QUANG Villar [...] Unavailable Robles Charles DO Primary Care Provider [facility] Delano CRESPO Attending Provider Robles [...] (5 sources) Penicillin V Drug Allergy rash [employer] [facility] [employer] Other (1 source) Amoxicillin Drug Allergy 0 [facility] Repository (1 source) Penicillins Drug allergy (disorder) [facility] Repository (5 sources) Penicillin Drug Allergy rash [employer] Other (1 source) Substance with penicillin structure and antibacterial mechanism of action (substance) Drug allergy 3 PENICILLINS [facility] [employer] Other (20 sources) Amoxicillin Drug Allergy 3 [facility] (20 sources) Penicillin G Drug Allergy 3 Unknown [facility] Healthcare (1 source) Penicillins Drug allergy (disorder) 4 [facility] Repository Medications Current Medications Medication [...] Start: 12-24-2022 take 1 tablet by brandon twice daily Doxycycline Hyclate 100 MG 1 [...] unspecified trimester] 05-01-2025 Episodic Other complications of (6 sources) Multigravida of advanced maternal age; Translations: [Supervision of elderly multigravida, third trimester] 05-30-2025 Episodic Other complications of (4 sources) Excessive growth affecting management of mother; [...] Overweight Episodic Other and delivery including normal (18 sources) Second trimester ; Translations: [Encounter for [...] of ] 05-30-2025 Episodic Residual codes; unclassified (6 sources) H/O: miscarriage; Translations: [Personal history of [...] [35 weeks gestation of ] 07-10-2025 Episodic Residual codes; unclassified (2 sources) Gestation period, 36 weeks; Translations: [36 weeks gestation of ] 07-17-2025 Episodic Unclassified (1 source) Endocrine disorder, unspecified; Translations: [Endocrine disorder, unspecified] Onset: Past or Other Problems Problem Classification Problem Date Documented Da te Episodic/Chronic Unclassified (1 source) Contact with and (suspected) exposure to covid-19 Z20.822 Viral infection (1 source) COVID-19 Onset: 12-27-2021 Resolved: 12-27-2021 Results Test Name Value Interpretation Reference Range Facility Urinalysis macro (dipstick) panel (U)on 07-17-2025 Bilirubin, UA Negative Negative - 4(70) +++ mg/dL [facility] Blood, UA Negative Negative - 50 Ezequiel/mcL [facility] Clarity, UA Clear [facility] Color, UA Yellow [facility] Glucose, UA Negative Negative - 1999(110) ++++ mg/dL [facility] Interpretation and review of laboratory results Abnormal [facility] Ketones, UA Negative Negative - 160(16) ++++ mg/dL [facility] Leukocytes, UA Positive Negative - 500+++ Jason/mcL [facility] Comment on above: 2+ Nitrite, UA Negative Negative - Positive [facility] pH, UA 6 5 - 9 [facility] Protein, UA Negative Negative - 1999(20) ++++ mg/dL [facility] Spec Grav, UA 1.015 1 - 1.03 [facility] Urobilinogen, UA 1.0 0.2 - 12 mg/dL [facility] US OB BPP W NON-STRESS on 07-15-2025 [place] [id number] Ultrasound Report Signed Patient: ANGELA REYES MR#: [id number] : 1990 Acct:[id number] Age/Sex: 35 / F ADM Date: 07/15/25 Loc: US Attending Dr: Ángel Buckner D.O. Ordering Physician: Ángel Buckner D.O. Date of Service: 07/15/25 Procedure(s): US OB BPP w non-stress Accession Number(s): [id number] cc: Robles Charles D.O.; Ángel Buckner D.O. [place] [id number] Patient Name: ANGELA REYES MRN: [facility]:[id number] date: 1990 Sex: F Assigned Patient Location: [facility] Current Patient Location: Accession/Order Number: [id number] Exam Date: 07/15/2025 09:17 Report Date: 07/15/2025 09:18 At the request of: ÁNGEL BUCKNER DO Procedure: US OB BPP w non-stress Biophysical profile. Reason for exam: Advanced maternal age COMPARISON: 07/08/2025 TECHNIQUE: Transabdominal imaging of the gravid uterus was obtained. 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 MARTY is normal at 14 cm. heart rate 136 bpm. US/US OB BPP w non-stress IMPRESSION: BPP 8 out of 8. Impression dictated by: Justin Mack Jr., D.O. 07/15/2025 9:18 AM Dictation Location: [place] [address] Electronically authenticated by: [id number] Y Date: 07/15/2025 09:18 Dictated By: Justin Mack M.D. Signed By: 07/15/25919 DD/ 7 TD/TT: Box Icer: [facility] Radiology, Radiolkrystle pa MD - 07/15/2025 [place] [address] Ultrasound Report Signed Patient: ANGELA REYES MR#: [id number] : 1990 Acct:[id number] Age/Sex: 35 / F ADM Date: 07/15/25 Loc: US Attending Dr: Ángel Buckner D.O. Ordering Physician: Ángel Buckner D.O. Date of Service: 07/15/25 Procedure(s): US OB BPP w non-stress Accession Number(s): [id number] cc: Robles Charles D.O.; Ángel Buckner D.O. The [place] [address] Patient Name: ANGELA REYES MRN: [facility]:[id number] date: 1990 Sex: F Assigned Patient Location: [facility] Current Patient Location: Accession/Order Number: [id number] Exam Date: 07/15/2025 09:17 Report Date: 07/15/2025 09:18 At the request of: ÁNGEL BUCKNER DO Procedure: US OB BPP w non-stress Biophysical profile. Reason for exam: Advanced maternal age COMPARISON: 07/08/2025 TECHNIQUE: Transabdominal imaging of the gravid uterus was obtained. 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 MARTY is normal at 14 cm. heart rate 136 bpm. US/US OB BPP w non-stress IMPRESSION: BPP 8 out of 8. Impression dictated by: Justin Mack Jr., D.O. 07/15/2025 9:18 AM Dictation Location: [place] [address] Electronically authenticated by: [id number] Y Date: 07/15/2025 09:18 Dictated By: Justin Mack M.D. Signed By: 07/15/25919 DD/ 7 TD/TT: Box Icer: [facility] Radiology Study observation (narrative) [facility] US OB BPP W NON-STRESS Ordered By: Radiologist Radiology on 07-15-2025 [facility] Work Phone: Urinalysis macro (dipstick) panel (U)on 07-10-2025 Bilirubin, UA Negative Negative - 4(70) +++ mg/dL [facility] Blood, UA Negative Negative - 50 Ezequiel/mcL [facility] Clarity, UA Clear [facility] Color, UA Yellow [facility] Glucose, UA Negative Negative - 2000(110) ++++ mg/dL [facility] Interpretation and review of laboratory results Abnormal [facility] Ketones, UA Negative Negative - 160(16) ++++ mg/dL [facility] Leukocytes, UA Positive Negative - 500+++ Jason/mcL [facility] Comment on above: small Nitrite, UA Negative Negative - Positive [facility] pH, UA 6 5 - 9 [facility] Protein, UA Negative Negative - 2000(20) ++++ mg/dL [facility] Spec Grav, UA 1.015 1 - 1.03 [facility] Urobilinogen, UA 0.2 0.2 - 12 mg/dL [facility] US OB BPP W NON-STRESS on 07-08-2025 [place] [address] Ultrasound Report Signed Patient: ANGELA REYES MR#: [id number] : 1990 Acct:[id number] Age/Sex: 35 / F ADM Date: 07/08/25 Loc: US Attending Dr: Ángel Buckner D.O. Ordering Physician: Ángel Buckner D.O. Date of Service: 07/08/25 Procedure(s): US OB BPP w non-stress Accession Number(s): [id number] cc: Robles Charles D.O.; Ángel Buckner D.O. [address] [address] Patient Name: ANGELA REYES MRN: [facility]:[id number] date: 1990 Sex: F Assigned Patient Location: [facility] Current Patient Location: Accession/Order Number: [id number] Exam Date: 07/08/2025 09:19 Report Date: 07/08/2025 09:19 At the request of: ÁNGEL BUCKNER DO Procedure: US OB BPP w non-stress Biophysical profile. Reason for exam: History of miscarriage COMPARISON: 07/01/2025 TECHNIQUE: Transabdominal imaging of the gravid uterus was obtained. 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 MARTY is normal at 12.5 cm. heart rate 135 bpm. US/US OB BPP w non-stress IMPRESSION: BPP 8 out of 8. Impression dictated by: Justin Mack Jr., D.O. 07/08/2025 9:19 AM Dictation Location: [place] [address] Electronically authenticated by: [id number] Y Date: 07/08/2025 09:19 Dictated By: Justin Mack M.D. Signed By: 07/08/25921 DD/ 8 TD/TT: Box Icer: [facility] Radiology, Radiologi MD ember - 07/08/2025 [place] [address] Ultrasound Report Signed Patient: ANGELA REYES MR#: [id number] : 1990 Acct:[id number] Age/Sex: 35 / F ADM Date: 07/08/25 Loc: US Attending Dr: Ángel Buckner D.O. Ordering Physician: Ángel Buckner D.O. Date of Service: 07/08/25 Procedure(s): US OB BPP w non-stress Accession Number(s): [id number] cc: Robles Charles D.O.; Ángel Buckner D.O. The [address] [address] Patient Name: ANGELA REYES MRN: [facility]:[id number] date: 1990 Sex: F Assigned Patient Location: [facility] Current Patient Location: Accession/Order Number: [id number] Exam Date: 07/08/2025 09:19 Report Date: 07/08/2025 09:19 At the request of: ÁNGEL BUCKNER DO Procedure: US OB BPP w non-stress Biophysical profile. Reason for exam: History of miscarriage COMPARISON: 07/01/2025 TECHNIQUE: Transabdominal imaging of the gravid uterus was obtained. 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 MARTY is normal at 12.5 cm. heart rate 135 bpm. US/US OB BPP w non-stress IMPRESSION: BPP 8 out of 8. Impression dictated by: Justin Mack Jr., D.O. 07/08/2025 9:19 AM Dictation [facility] Electronically authenticated by: [id number] Y Date: 07/08/2025 09:19 Dictated By: Justin Mack M.D. Signed By: 07/08/25921 DD/ 8 TD/TT: Box Icer: [facility] Radiology Study observation (narrative) [facility] US OB BPP W NON-STRESS Ordered By: Radiologist Radiology on 07-08-2025 [facility] Work Phone: US OB BPP W NON-STRESS on 07-01-2025 [place] [address] Ultrasound Report Signed Patient: ANGELA REYES MR#: [id number] : 1990 Acct:[id number] Age/Sex: 35 / F ADM Date: 07/01/25 Loc: US Attending Dr: Ángel Buckner D.O. Ordering Physician: Ángel Buckner D.O. Date of Service: 07/01/25 Procedure(s): US OB BPP w non-stress Accession Number(s): [id number] cc: Robles Charles D.O.; Ángel Buckner D.O. The [place] [id number] Patient Name: ANGELA REYES MRN: [facility]:[id number] date: 1990 Sex: F Assigned Patient Location: [facility] Current Patient Location: Accession/Order Number: [id number] Exam Date: 07/01/2025 20:05 Report Date: 07/01/2025 [...] Yusuf M.D. 07/01/2025 8:07 PM Dictation Location: [place] [address] Electronically authenticated by: [id number] Y Date: 07/01/2025 20:07 Dictated By: Roddy Yusuf M.D. Signed By: 07/01/252008 DD/ 06 TD/TT: Box Icer: [facility] Radiology, Radiologi MD ember - 07/01/2025 [place] [address] Ultrasound Report Signed Patient: ANGELA REYES MR#: [id number] : 1990 Acct:[id number] Age/Sex: 35 / F ADM Date: 07/01/25 Loc: US Attending Dr: Ángel Buckner D.O. Ordering Physician: Ángel Buckner D.O. Date of Service: 07/01/25 Procedure(s): US OB BPP w non-stress Accession Number(s): [id number] cc: Robles Charles D.O.; Ángel Buckner D.O. The [place] [id number] Patient Name: ANGELA REYES MRN: [facility]:[id number] date: 1990 Sex: F Assigned Patient Location: [facility] Current Patient Location: Accession/Order Number: [id number] Exam Date: 07/01/2025 20:05 Report Date: 07/01/2025 [...] Yusuf M.D. 07/01/2025 8:07 PM Dictation Location: [place] [address] Electronically authenticated by: [id number] Y Date: 07/01/2025 20:07 Dictated By: Roddy Yusuf M.D. Signed By: 07/01/252008 DD/ 06 TD/TT: Box Icer: [facility] Radiology Study observation (narrative) [facility] US OB BPP W NON-STRESS Ordered By: Radiologist Radiology on 07-01-2025 [facility] Work Phone: US OB FOLLOW UP TRANSABDOMIN [...] II, MD, PHD at 26-Jun-2025 11:42:39 PM [facility] Normal Not Available Comment on above: Order Comment: US OB SCAN FOR GROWTH Estimated Date of Delivery: 08/09/25 Gestational Age as of 06/12/2025: 31w5d Urinalysis macro (dipstick) panel (U)on 06-26-2025 Bilirubin, UA Negative Negative - 4(70) +++ mg/dL [facility] Blood, UA Negative Negative - 50 Ezequiel/mcL [facility] Clarity, UA Clear [facility] Color, UA Yellow [facility] Glucose, UA Negative Negative - 2000(110) ++++ mg/dL [facility] Interpretation and review of laboratory results Normal [facility] Ketones, UA Negative Negative - 160(16) ++++ mg/dL [facility] Leukocytes, UA Negative Negative - 500+++ Jason/mcL [facility] Nitrite, UA Negative Negative - Positive [facility] pH, UA 6.5 5 - 9 [facility] Protein, UA Negative Negative - 2000(20) ++++ mg/dL [facility] Spec Grav, UA 1.01 1 - 1.03 [facility] Urobilinogen, UA 1.0 0.2 - 12 mg/dL [facility] US OB BPP W NON-STRESS on 06-24-[address] [facility] [address] [place] [address] Ultrasound Report Signed Patient: ANGELA REYES MR#: [id number] : 1990 Acct:[id number] Age/Sex: 35 / F ADM Date: 06/24/25 Loc: US Attending Dr: Ángel Buckner D.O. Ordering Physician: Ángel Buckner D.O. Date of Service: 06/24/25 Procedure(s): US OB BPP w non-stress Accession Number(s): [id number] cc: Robles Charles D.O.; Ángel Buckner D.O. The [place] [address] Patient Name: ANGELA REYES MRN: [facility]:[id number] date: 1990 Sex: F Assigned Patient Location: US Current Patient Location: Accession/Order Number: [id number] Exam Date: 06/24/2025 09:33 Report Date: 06/24/2025 09:34 At the request of: ÁNGEL BUCKNER DO Procedure: US OB BPP w non-stress Biophysical profile. Reason for exam: History of miscarriage COMPARISON: 06/17/2025 TECHNIQUE: Transabdominal imaging of the gravid uterus was obtained. 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 MARTY is normal at 15 cm. heart rate 130 bpm. US/US OB BPP w non-stress IMPRESSION: BPP 8 out of 8. Impression dictated by: Justin Mack Jr., D.O. 06/24/2025 9:34 AM Dictation Location: [place] [address] Electronically authenticated by: [id number] Y Date: 06/24/2025 09:34 Dictated By: Justin Mack M.D. Signed By: 06/24/2536 DD/ 3 TD/TT: Box Icer: [facility] Radiology Radiologbrittanie pa MD - 06/24/2025 [place] [address] Ultrasound Report Signed Patient: ANGELA REYES MR#: [id number] : 1990 Acct:[id number] Age/Sex: 35 / F ADM Date: 06/24/25 Loc: US Attending Dr: Ángel Buckner D.O. Ordering Physician: Ángel Buckner D.O. Date of Service: 06/24/25 Procedure(s): US OB BPP w non-stress Accession Number(s): [id number] cc: Robles Charles D.O.; Ángel Buckner D.O. [place] [address] Patient Name: ANGELA REYES MRN: [facility]:[id number] date: 1990 Sex: F Assigned Patient Location: US Current Patient Location: Accession/Order Number: [id number] Exam Date: 06/24/2025 09:33 Report Date: 06/24/2025 09:34 At the request of: ÁNGEL BUCKNER DO Procedure: US OB BPP w non-stress Biophysical profile. Reason for exam: History of miscarriage COMPARISON: 06/17/2025 TECHNIQUE: Transabdominal imaging of the gravid uterus was obtained. 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 MARTY is normal at 15 cm. heart rate 130 bpm. US/US OB BPP w non-stress IMPRESSION: BPP 8 out of 8. Impression dictated by: Justin Mack Jr., D.O. 06/24/2025 9:34 AM Dictation Location: [place] [address] Electronically authenticated by: [id number] Y Date: 06/24/2025 09:34 Dictated By: Justin Mack M.D. Signed By: 06/24/2536 DD/ 3 TD/TT: Box Icer: [facility] Radiology Study observation (narrative) [facility] US OB BPP W NON-STRESS Ordered By: Radiologist Radiology on 06-24-2025 [facility] Work Phone: US OB BPP W NON-STRESS on 06-17-2025 [place] [address] Ultrasound Report Signed Patient: ANGELA REYES MR#: [id number] : 1990 Acct:[id number] Age/Sex: 35 / F ADM Date: 06/17/25 Loc: [facility] 250-[address]: Ángel Buckner D.O. Ordering Physician: Ángel Buckner D.O. Date of Service: 06/17/25 Procedure(s): US OB BPP w non-stress Accession Number(s): [id number] cc: Robles Charles D.O.; Ángel Buckner D.O. [place] [address] Patient Name: ANGELA REYES MRN: [facility]:[id number] date: 1990 Sex: F Assigned Patient Location: [facility] Current Patient Location: [facility] Accession/Order Number: [id number] Exam Date: 06/17/2025 09:17 Report Date: 06/17/2025 [...] Ramachandran M.D. 06/17/2025 9:20 AM Dictation Location: [place] [address] Electronically authenticated by: [id number] Y Date: 06/17/2025 09:20 Dictated By: Carlton Ramachandran M.D. Signed By: 06/17/2522 DD/ 9 TD/TT: Box Icer: [facility] RadiologyNeelimaogbrittanie pa MD - 06/17/2025 [place] [address] Ultrasound Report Signed Patient: ANGELA REYES MR#: [id number] : 1990 Acct:[id number] Age/Sex: 35 / F ADM Date: 06/17/25 Loc: [facility] 250-[address]: Ángel Buckner D.O. Ordering Physician: Ángel Buckner D.O. Date of Service: 06/17/25 Procedure(s): US OB BPP w non-stress Accession Number(s): [id number] cc: Robles Charles D.O.; Ángel Buckner D.O. [place] [id number] Patient Name: ANGELA REYES MRN: [facility]:[id number] date: 1990 Sex: F Assigned Patient Location: [facility] Current Patient Location: [facility] Accession/Order Number: [id number] Exam Date: 06/17/2025 09:17 Report Date: 06/17/2025 [...] Ramachandran M.D. 06/17/2025 9:20 AM Dictation Location: [place] [address] Electronically authenticated by: [id number] Y Date: 06/17/2025 09:20 Dictated By: Carlton Ramachandran M.D. Signed By: 06/17/25921 DD/ 9 TD/TT: Box Icer: [facility] Radiology Study observation (narrative) [facility] US OB BPP W NON-STRESS Ordered By: Radiologist Radiology on 06-17-2025 [facility] Work Phone: US OB BPP W NON-STRESS on 06-10-2025 [place] [address] Ultrasound Report Signed Patient: ANGELA REYES MR#: [id number] : 1990 Acct:[id number] Age/Sex: 35 / F ADM Date: 06/10/25 Loc: US Attending Dr: Ángel Buckner D.O. Ordering Physician: Ángel Buckner D.O. Date of Service: 06/10/25 Procedure(s): US OB BPP w non-stress Accession Number(s): [id number] cc: Robles Charles D.O.; Ángel Buckner D.O. [place] [address] Patient Name: ANGELA REYES MRN: [facility]:[id number] date: 1990 Sex: F Assigned Patient Location: [facility] Current Patient Location: Accession/Order Number: [id number] Exam Date: 06/10/2025 18:36 Report Date: 06/10/2025 [...] Yusuf M.D. 06/10/2025 6:38 PM Dictation Location: [place] [address] Electronically authenticated by: [id number] Y Date: 06/10/2025 18:38 Dictated By: Roddy Yusuf M.D. Signed By: 06/10/251840 DD/ 37 TD/TT: Box Icer: [facility] Radiology, Radiologi MD ember - 06/10/2025 [place] [address] Ultrasound Report Signed Patient: ANGELA REYES MR#: [id number] : 1990 Acct:[id number] Age/Sex: 35 / F ADM Date: 06/10/25 Loc: US Attending Dr: Ángel Buckner D.O. Ordering Physician: Ángel Buckner D.O. Date of Service: 06/10/25 Procedure(s): US OB BPP w non-stress Accession Number(s): [id number] cc: Robles Charles D.O.; Ángel Buckner D.O. [place] [address] Patient Name: ANGELA REYES MRN: [id number] date: 1990 Sex: F Assigned Patient Location: [facility] Current Patient Location: Accession/Order Number: [id number] Exam Date: 06/10/2025 18:36 Report Date: 06/10/2025 [...] Yusuf M.D. 06/10/2025 6:38 PM Dictation Location: [place] [address] Electronically authenticated by: [id number] Y Date: 06/10/2025 18:38 Dictated By: Roddy Yusuf M.D. Signed By: 06/10/25 184 DD/ 37 TD/TT: Box Icer: [facility] Radiology Study observation (narrative) [facility] US OB BPP W NON-STRESS Ordered By: Radiologist Radiology on 06-10-2025 [facility] Work Phone: US OB BPP W NON-STRESS on 06-03-2025 [place] [address] Ultrasound Report Signed Patient: ANGELA REYES MR#: [id number] : 1990 Acct:[id number] Age/Sex: 35 / F ADM Date: 06/03/25 Loc: US Attending Dr: Ángel Buckner D.O. Ordering Physician: Ángel Buckner D.O. Date of Service: 06/03/25 Procedure(s): US OB BPP w non-stress Accession Number(s): [id number] cc: Robles Charles D.O.; Ángel Buckner D.O. [place] [address] Patient Name: ANGELA REYES MRN: [facility]:[id number] date: 1990 Sex: F Assigned Patient Location: [facility] Current Patient Location: Accession/Order Number: [id number] Exam Date: 06/03/2025 14:22 Report Date: 06/03/2025 [...] Durand M.D. 06/03/2025 2:23 PM Dictation Location: [place] [address] Electronically authenticated by: [id number] Y Date: 06/03/2025 14:23 Dictated By: Aguilar Durand D.O. Signed By: 06/03/25 142 DD/ 22 TD/TT: Box Icer: [facility] Radiology Radiologbrittanie pa MD - 06/03/2025 [place] [address] Ultrasound Report Signed Patient: ANGELA REYES MR#: [id number] : 1990 Acct:[id number] Age/Sex: 35 / F ADM Date: 06/03/25 Loc: US Attending Dr: Ángel Buckner D.O. Ordering Physician: Ángel Buckner D.O. Date of Service: 06/03/25 Procedure(s): US OB BPP w non-stress Accession Number(s): [id number] cc: Robles Charles D.O.; Ángel Buckner D.O. The [place] [id number] Patient Name: ANGELA REYES MRN: [facility]:[id number] date: 1990 Sex: F Assigned Patient Location: [facility] Current Patient Location: Accession/Order Number: [id number] Exam Date: 06/03/2025 14:22 Report Date: 06/03/2025 [...] Durand M.D. 06/03/2025 2:23 PM Dictation Location: [place] [address] Electronically authenticated by: [id number] Y Date: 06/03/2025 14:23 Dictated By: Aguilar Durand D.O. Signed By: 06/03/25 1425 DD/ 142 TD/TT: Box Icer: [facility] Radiology Study observation (narrative) [facility] US OB BPP W NON-STRESS Ordered By: Radiologist Radiology on 06-03-2025 [facility] Work Phone: Urinalysis macro (dipstick) panel (U)on 05-30-2025 Bilirubin, UA Negative Negative - 4(70) +++ mg/dL [facility] Blood, UA Negative Negative - 50 Ezequiel/mcL [facility] Clarity, UA Clear [facility] Color, UA Yellow [facility] Glucose, UA Negative Negative - 1999(110) ++++ mg/dL [facility] Interpretation and review of laboratory results Normal [facility] Ketones, UA Negative Negative - 160(16) ++++ mg/dL [facility] Leukocytes, UA Negative Negative - 500+++ Jason/mcL [facility] Nitrite, UA Negative Negative - Positive [facility] pH, UA 5.5 5 - 9 [facility] Protein, UA Negative Negative - 1999(20) ++++ mg/dL [facility] Spec Grav, UA 1.02 1 - 1.03 [facility] Urobilinogen, UA 1.0 0.2 - 12 mg/dL [facility] OB GROWTHon 05-11-2025 [place] [address] Ultrasound Report Signed Patient: ANGELA REYES MR#: [id number] : 1990 Acct:[id number] Age/Sex: 35 / F ADM Date: 05/11/25 Loc: Attending Dr: Edson Dewitt Ordering Physician: Edson Dewitt Date of Service: 05/11/25 Procedure(s): US OB growth Accession Number(s): [id number] cc: Robles Charles D.O.; Edson Dewitt [address] [address] Patient Name: ANGELA REYES MRN: [id number] date: 1990 Sex: F Assigned Patient Location: Current Patient Location: Accession/Order Number: [id number] Exam Date: 05/11/2025 14:38 Report Date: 05/11/2025 [...] Jr., D.O. 05/11/2025 2:40 PM Dictation Location: [place] [address] Electronically authenticated by: [id number] Y Date: 05/11/2025 14:40 Dictated By: Justin Mack M.D. Signed By: 05/11/25 1442 DD/ 1440 TD/TT: Box Icer: [facility] Radiology, Radiologi MD ember - 05/11/2025 [place] [address] Ultrasound Report Signed Patient: ANGELA REYES MR#: [id number] : 1990 Acct:[id number] Age/Sex: 35 / F ADM Date: 05/11/25 Loc: Attending Dr: Edson Dewitt Ordering Physician: Edson Dewitt Date of Service: 05/11/25 Procedure(s): US OB growth Accession Number(s): [id number] cc: Robles Charles D.O.; Edson Dewitt The [address] [address] Patient Name: ANGELA REYES MRN: [facility]:[id number] date: 1990 Sex: F Assigned Patient Location: US Current Patient Location: US Accession/Order Number: [id number] Exam Date: 05/11/2025 14:38 Report Date: 05/11/2025 [...] Jr., D.O. 05/11/2025 2:40 PM Dictation Location: [place] [address] Electronically authenticated by: [id number] Y Date: 05/11/2025 14:40 Dictated By: Justin Mack M.D. Signed By: 05/11/25 1442 DD/ 1440 TD/TT: Box Icer: [facility] Radiology Study observation (narrative) [facility] US OB GROWTHOrdered By: Reg ologdarwin Radiology on 05-11-2025 [facility] Work Phone: ALL CBC WITH AUTO DIFFon BASOPHILS ABSOLUTE AUTO 0 N [facility] Basophils/100 WBC (Bld) 0.2 % 0.2 - 2.0 % [facility] Eosinophils/100 WBC (Bld) 1.2 % 0.9 - 7.0 % [facility] Erythrocyte distribution width (RBC) [Ratio] 13.2 % 11.0 - 15.0 % [facility] Hematocrit (Bld) [Volume fraction] 31.9 % Low 36.0 - 48.0 % [facility] Hemoglobin (Bld) [Mass/Vol] 10.6 g/dL Low 12.0 - 16.0 g/dL [facility] IMMATURE GRANULOCYTES ABS AUTO 0.06 High [facility] Immature granulocytes/100 WBC (Bld) 0.6 % High 0.0 - 0.5 % [facility] Interpretation and review of laboratory results Abnormal [facility] LYMPHOCYTES ABSOLUTE AUTO 1.6 [facility] Lymphocytes/100 WBC (Bld) 15.6 % Low 20.5 - 60.0 % [facility] MCH (RBC) [Entitic mass] 32.6 pg 26.7 - 34.0 pg [facility] MCHC (RBC) [Mass/Vol] 33.2 g/dL 29.9 - 35.2 g/dL [facility] MCV (RBC) [Entitic vol] 98.2 fL 81.0 - 99.0 fL [facility] MONOCYTES ABSOLUTE AUTO 0.6 N [facility] Monocytes/100 WBC (Bld) 6 % 1.7 - 12.0 % [facility] NEUTROPHILS ABSOLUTE AUTO 7.7 High [facility] Neutrophils/100 WBC (Bld) 76.4 % High 43.0 - 75.0 % [facility] Platelet mean volume (Bld) [Entitic vol] 9 fL Low 9.5 - 13.5 fL [facility] TBH EO # 0.1 [facility] TBH PLT 313 [facility] TB RBC 3.25 Low [facility] WBC 10.1 [facility] GLUCOSE 1 HOURon 04-18-2025 Glucose [Mass/Vol] 96 mg/dL NINF - 13 0 mg/dL [facility] No Panel Informationon 04-18 [facility] US OB LIMITED 1+ FETUSESon 0 04-18-2025 [...] II, MD, PHD at 21-Apr-2025 12:15:59 PM [facility] Normal Not Available Comment on above: Order Comment: US OB INCOMPLETE ANATOMY W US OB TRANSVAGINAL Estimated Date of Delivery: 08/09/25 Gestational Age as of 03/30/2025: 21w1d Urinalysis macro (dipstick) panel (U)on 03-30-2025 Bilirubin, UA Negative Negative - 4(70) +++ mg/dL [facility] Blood, UA Negative Negative - 50 Ezequiel/mcL [facility] Clarity, UA Clear [facility] Color, UA Yellow [facility] Glucose, UA Negative Negative - 1999(110) ++++ mg/dL [facility] Interpretation and review of laboratory results Normal [facility] Ketones, UA Negative Negative - 160(16) ++++ mg/dL [facility] Leukocytes, UA Negative Negative - 500+++ Jason/mcL [facility] Nitrite, UA Negative Negative - Positive [facility] pH, UA 7 5 - 9 [facility] Protein, UA Negative Negative - 2000(20) ++++ mg/dL [facility] Spec Grav, UA 1.02 1 - 1.03 [facility] Urobilinogen, UA 0.2 0.2 - 12 mg/dL [facility] US OB ANATOMYon 03-21-2025 [place] [address] Ultrasound Report Signed Patient: ANGELA REYES MR#: [id number] : 1990 Acct:[id number] Age/Sex: 35 / F ADM Date: 03/20/25 Loc: US Attending Dr: Deisy Villar Ordering Physician: Deisy Villar Date of Service: 03/20/25 Procedure(s): US OB anatomy Accession Number(s): [id number] cc: Deisy Villar; Robles Charles D.O. [place] [id number] Patient Name: ANGELA RYEES MRN: [id number] date: 1990 Sex: F Assigned Patient Location: US Current Patient Location: Accession/Order Number: [id number] Exam Date: 03/21/2025 13:12 Report Date: 03/21/2025 [...] Aguilar Durand M.D.03/21/2025 1:16 PM Dictation Location: [place] [address] Electronically authenticated by: [id number] Y Date: 03/21/2025 13:16 Dictated By: Aguilar Durand D.O. Signed By: 03/21/25 1319 DD/ 1316 TD/TT: Box Icer: [facility] Radiology, Radiologi MD ember - 03/21/2025 [place] [address] Ultrasound Report Signed Patient: ANGELA REYES MR#: [id number] : 1990 Acct:[id number] Age/Sex: 35 / F ADM Date: 03/20/25 Loc: US Attending Dr: Deisy Villar Ordering Physician: Deisy Villar Date of Service: 03/20/25 Procedure(s): US OB anatomy Accession Number(s): [id number] cc: Deisy Villar; Robles Charles D.O. The [address] [address] Patient Name: ANGELA REYES MRN: [id number] date: 1990 Sex: F Assigned Patient Location: Current Patient Location: Accession/Order Number: [id number] Exam Date: 03/21/2025 13:12 Report Date: 03/21/2025 [...] Aguilar Durand M.D.03/21/2025 1:16 PM Dictation Location: [place] [address] Electronically authenticated by: [id number] Y Date: 03/21/2025 13:16 Dictated By: Aguilar Durand D.O. Signed By: 03/21/25 1319 DD/ 1316 TD/TT: Box Icer: [facility] Radiology Study observation (narrative) [facility] OB ANATOMYOrdered By: Rad iologist Radiology on 03-21-2025 [facility] Healthcare Work Phone: US OB CERVICAL LENGTHon 03-01 [place] [address] Ultrasound Report Signed Patient: ANGELA REYES MR#: [id number] : 1990 Acct:[id number] Age/Sex: 35 / F ADM Date: 03/20/25 Loc: US Attending Dr: Deisy Villar Ordering Physician: Deisy Villar Date of Service: 03/20/25 Procedure(s): US OB cervical length Accession Number(s): [id number] cc: Deisy Villar; Robles Charles D.O. The [place] [id number] Patient Name: ANGELA REYES MRN: [facility]:[id number] date: 1990 Sex: F Assigned Patient Location: US Current Patient Location: Accession/Order Number: [id number] Exam Date: 03/21/2025 09:18 Report Date: 03/21/2025 09:19 At the request of: DEISY VILLAR Procedure: US OB cervical length Ultrasound assessment of the cervical length The cervical length is 3.8 cm. The cervical os is closed. US/US OB cervical length IMPRESSION: #3.8 cm cervical length. Impression dictated by: Aguilar Durand M.D.03/21/2025 9:19 AM Dictation Location: [place] [address] Electronically authenticated by: [id number] Y Date: 03/21/2025 09:19 Dictated By: Aguilar Durand D.O. Signed By: 03/21/25921 DD/ 8 TD/TT: Box Icer: [facility] Radiology, Radiologbrittanie pa MD - 03/21/[address] [address] Ultrasound Report Signed Patient: ANGELA REYES MR#: [id number] : 1990 Acct:[id number] Age/Sex: 35 / F ADM Date: 03/20/25 Loc: US Attending Dr: Deisy Villar Ordering Physician: Deisy Villar Date of Service: 03/20/25 Procedure(s): US OB cervical length Accession Number(s): [id number] cc: Deisy Villar; Robles Charles D.O. [address] [address] Patient Name: ANGELA REYES MRN: [facility]:[id number] date: 1990 Sex: F Assigned Patient Location: US Current Patient Location: Accession/Order Number: [id number] Exam Date: 03/21/2025 09:18 Report Date: 03/21/2025 09:19 At the request of: DEISY VILLAR Procedure: US OB cervical length Ultrasound assessment of the cervical length The cervical length is 3.8 cm. The cervical os is closed. US/US OB cervical length IMPRESSION: #3.8 cm cervical length. Impression dictated by: Aguilar Durand M.D.03/21/2025 9:19 AM Dictation Location: [place] [address] Electronically authenticated by: [id number] Y Date: 03/21/2025 09:19 Dictated By: Aguilar Durand D.O. Signed By: 03/21/25921 DD/ 8 TD/TT: Box Icer: [facility] Radiology Study observation (narrative) [facility] US OB CERVICAL LENGTHOrdered By: Radiologist Radiology on 03-21-2025 [facility] Work Phone: IGP,APTIMA HPV,AGE GDLNon AGE GDLN ACOG TESTING Note . [facility] Comment on above: TESTS RESULT FLAG UN ITS REF RANGE LAB Clinician Provided Cytology Information Source.............Cervix Other.............. No. of containers..01 ThinPrep Vial Age Radha SPRINGER Lara... 30 FLAG LEGEND: L-Low Normal,H-High Normal,LL-Alert Low,HH-Alert High <-Panic Low,>-Panic High,A-Abnormal,AA-Critical Abnormal Performed at: 01 =[address] [address] Ilana Heath MD, HPV APTIMA Negative Negative [facility] Comment on above: This nucleic acid am plification test detects fourteen high- risk HPV types (16,18,31,33,35,39,45,51,52,56,58,59,66,68) without differentiation. Performed at: =[address] [id number] Staff Editor: Ilana Heath MD, Phone: [phone] Performed at: [address] [id number] Staff Editor: Ilana Heath MD, Phone: [phone] IGP, APTIMA HPV, RFX 16/18,45 Note . [facility] Comment on above: TESTS RESULT FLAG UN ITS REF RANGE LAB DIAGNOSIS: 02 NEGATIVE FOR INTRAEPITHELIAL LESION OR MALIGNANCY. THIS SPECIMEN WAS RESCREENED PART OF OUR DEPUTY TREASURER PROGRAM. Specimen adequacy: 02 Satisfactory for evaluation. No endocervical component is identified. Performed by: 03 Eugenia Kennedy Hot Box Spotter ([facility]) QC reviewed by: 02 Meredith Chávez, Cadmium Plater . 02 Note: Note 02 The Pap [...] High,A-Abnormal,AA-Critical Abnormal Performed at: 02 [address] [facility] [address] [address] Ilana Heath MD, 03 KWCYT [facility] [place] [address] [address] [place] [address] Lloyd Kim MD, SPATULA-ALONE CERVIX [facility] RECURRENT VAGINITIS (HTRX)on 03-03-2025 ATOPOBIUM VAGINAE 0 [facility] ATOPOBIUM VAGINAE Not detected [facility] BVAB 2,3 (BACTERIAL VAGINOSIS ASSOCIATED BACTERIA 2, 3); MOBILUNCUS SPP 0 [facility] Healthcare BVAB 2,3 (BACTERIAL VAGINOSIS ASSOCIATED BACTERIA 2, 3); MOBILUNCUS SPP Not detected [facility] ANEUDY ALBICANS, PARAPSILOSIS, TROPICALIS 0 [facility] ANEUDY ALBICANS, PARAPSILOSIS, TROPICALIS Not detected [facility] ANEUDY GLABRATA 0 [facility] ANEUDY GLABRATA Not detected [facility]EUDY KRUSEI 0 [facility] ANEUDY KRUSEI Not detected [facility] CHLAMYDIA TRACHOMATIS 0 [facility] CHLAMYDIA TRACHOMATIS Not detected N [facility] GARDNERELLA VAGINALIS 0 [facility] GARDNERELLA VAGINALIS Not detected N [facility] MEGASPHAERA (TYPES 1, 2) 0 [facility] MEGASPHA[facility]A (TYPES 1, 2) Not detected [facility] MYCOPLASMA GENITALIUM 0 [facility] MYCOPLASMA GENITALIUM Not detected N [facility] NEISSERIA GONORRHOEAE 0 [facility] NEISSERIA GONORRHOEAE Not detected N [facility] TRICHOMONAS VAGINALIS 0 [facility] TRICHOMONAS VAGINALIS Not detected N [facility] Urinalysis macro (dipstick) panel (U)on 03-02-2025 Bilirubin, UA Negative Negative - 4(70) +++ mg/dL [facility] Blood, UA Negative Negative - 50 Ezequiel/mcL [facility] Clarity, UA Clear [facility] Color, UA Yellow [facility] Glucose, UA Negative Negative - 1999(110) ++++ mg/dL [facility] Interpretation and review of laboratory results Normal [facility] Ketones, UA Negative Negative - 160(16) ++++ mg/dL [facility] Leukocytes, UA Negative Negative - 500+++ Jason/mcL [facility] Nitrite, UA Negative Negative - Positive [facility] pH, UA 7 5 - 9 [facility] Protein, UA Negative Negative - 1999(20) ++++ mg/dL [facility] Spec Grav, UA 1.02 1 - 1.03 [facility] Urobilinogen, UA 0.2 0.2 - 12 mg/dL [facility] Urinalysis macro (dipstick) panel (U)on 02-02-2025 Bilirubin, UA Negative Negative - 4(70) +++ mg/dL [facility] Blood, UA Negative Negative - 50 Ezequiel/mcL [facility] Clarity, UA Clear [facility] Color, UA Yellow [facility] Glucose, UA Negative Negative - 2000(110) ++++ mg/dL [facility] Interpretation and review of laboratory results Abnormal [facility] Ketones, UA Negative Negative - 160(16) ++++ mg/dL [facility] Leukocytes, UA Trace Negative - 500+++ Jason/mcL [facility] Nitrite, UA Negative Negative - Positive [facility] pH, UA 6 5 - 9 [facility] Protein, UA Negative Negative - 1999(20) ++++ mg/dL [facility] Spec Grav, UA 1.025 1 - 1.03 [facility] Urobilinogen, UA 0.2 0.2 - 12 mg/dL [facility] ALL CBC WITH AUTO DIFFon BASOPHILS ABSOLUTE AUTO 0 N [facility] Basophils/100 WBC (Bld) 0.4 % 0.2 - 2.0 % [facility] Eosinophils/100 WBC (Bld) 2.2 % 0.9 - 7.0 % [facility] Erythrocyte distribution width (RBC) [Ratio] 12.5 % 11.0 - 15.0 % [facility] Hematocrit (Bld) [Volume fraction] 34 % Low 36.0 - 48.0 % [facility] Hemoglobin (Bld) [Mass/Vol] 11.7 g/dL Low 12.0 - 16.0 g/dL [facility] IMMATURE GRANULOCYTES ABS AUTO 0.03 [facility] Immature granulocytes/100 WBC (Bld) 0.4 % 0.0 - 0.5 % [facility] Interpretation and review of laboratory results Abnormal [facility] LYMPHOCYTES ABSOLUTE AUTO 1.6 [facility] Lymphocytes/100 WBC (Bld) 20.4 % Low 20.5 - 60.0 % [facility] MCH (RBC) [Entitic mass] 31.5 pg 26.7 - 34.0 pg [facility] MCHC (RBC) [Mass/Vol] 34.4 g/dL 29.9 - 35.2 g/dL [facility] MCV (RBC) [Entitic vol] 91.6 fL 81.0 - 99.0 fL [facility] MONOCYTES ABSOLUTE AUTO 0.6 N [facility] Monocytes/100 WBC (Bld) 7.2 % 1.7 - 12.0 % [facility] NEUTROPHILS ABSOLUTE AUTO 5.6 [facility] Neutrophils/100 WBC (Bld) 69.4 % 43.0 - 75.0 % [facility] Platelet mean volume (Bld) [Entitic vol] 9.6 fL 9.5 - 13.5 fL [facility] TBH EO # 0.2 [facility] TB PLT 302 [facility] TB RBC 3.71 Low [facility] TB WBC 8 [facility] 025 US OB [...] II, MD, PHD at 09-Jan-2025 09:10:54 AM [facility] Normal Not Available Comment on above: Order Comment: US OB TRANSVAGINAL No LMP recorded. TBH PREG QUANT HCGon 025 HCG QUANTITATIVE 48515 mIU/mL [facility] Comment on above: 5-50 0.2-1 WEEK 50-500 1-2 WEEKS 100-5,000 2-3 WEEKS 500-10,000 3-4 WEEKS 1,000-50,000 4-5 WEEKS 10,000-100,000 5-6 WEEKS 15,000-200,000 6-8 WEEKS 10,000-100,000 2-[facility] HCGon 025 HCG QUANTITATIVE 52410 mIU/mL [facility] Comment on above: 5-50 0.2-1 WEEK 50-500 1-2 WEEKS 100-5,000 2-3 WEEKS 500-10,000 3-4 WEEKS 1,000-50,000 4-5 WEEKS 10,000-100,000 5-6 WEEKS 15,000-200,000 6-8 WEEKS 10,000-100,000 2-3 MONTHS [facility] Automated basophil %Ordered By: Delano Francis on 09-22-2024 Basophils/100 WBC (Bld) 0.6 % Normal . [facility] Comment on above: Performed By: #### Adria NATHAN, JOSSE T4, [id number], SEROTON, TEST F + T, T3R, THYGLOB AB, ESTRADIOL, TPO, SHBG, ESTRONE, INSULIN, PROG #### [facility] , #### T4F, TRISTEN, TSH3, A1C WTH eA, FILIBERTO, GLU, T3F #### [facility] [address] [place] [address] Automated basophil countOrde red By: Delano Francis on 09-22-2024 Basophils (Bld) [#/Vol] 0.0 10*3/uL Normal 0.0-0.2 [facility] Comment on above: Result Comment: PERF ORMED BY: [place] [id number] PATHOLOGIST EM PHYSICIAN JOSE GOEL M.D. Performed By: #### JOSSE SMITH T4, [id number], SEROTON, TEST F + T, T3R, THYGLOB AB, ESTRADIOL, TPO, SHBG, ESTRONE, INSULIN, PROG #### [facility] , #### T4F, TRISTEN, TSH3, A1C WTH eA, FILIBERTO, GLU, T3F #### [facility] [address] [place] [address] Automated blood monocyte cou ntOrdered By: Delano Francis on 09-22-2024 Monocytes (Bld) [#/Vol] 0.4 10*3/uL Normal 0.0-0.8 [facility] Comment on above: Performed By: #### D HEAS, LC T4, [id number], SEROTON, TEST F + T, T3R, THYGLOB AB, ESTRADIOL, TPO, SHBG, ESTRONE, INSULIN, PROG #### [facility] , #### T4F, TRISTEN, TSH3, A1C WTH eA, FILIBERTO, GLU, T3F #### [facility] [address] Automated eosinophil %Ordere d By: Delano Francis on 09-22-2024 Eosinophils/100 WBC (Bld) 1.7 % Normal . [facility] Comment on above: Performed By: #### D HEAS, LC T4, [id number], SEROTON, TEST F + T, T3R, THYGLOB AB, ESTRADIOL, TPO, SHBG, ESTRONE, INSULIN, PROG #### [facility] , #### T4F, TRISTEN, TSH3, A1C WTH eA, FILIBERTO, GLU, T3F #### [address] Automated eosinophil countOr dered By: Delano Francis on 09-22-2024 Eosinophils (Bld) [#/Vol] 0.1 10*3/uL Normal 0.0-0.45 [facility] Comment on above: Performed By: #### D HEAS, LC T4, [id number], SEROTON, TEST F + T, T3R, THYGLOB AB, ESTRADIOL, TPO, SHBG, ESTRONE, INSULIN, PROG #### [facility] , #### T4F, TRISTEN, TSH3, A1C WTH eA, FILIBERTO, GLU, T3F #### [address] Automated monocyte %Ordered By: Delano Francis on 09-22-2024 Monocytes/100 WBC (Bld) 8.7 % Normal . [facility] Comment on above: Performed By: #### D HEAS, LC T4, [id number], SEROTON, TEST F + T, T3R, THYGLOB AB, ESTRADIOL, TPO, SHBG, ESTRONE, INSULIN, PROG #### [facility] , #### T4F, TRISTEN, TSH3, A1C WTH eA, FILIBERTO, GLU, T3F #### [facility] [address] Automated neutrophil %Ordere d By: Delano Francis on 09-22-2024 Neutrophils/100 WBC (Bld) 63.7 % Normal . [facility] Comment on above: Performed By: #### D DANIELLEAS, LC T4, [id number], SEROTON, TEST F + T, T3R, THYGLOB AB, ESTRADIOL, TPO, SHBG, ESTRONE, INSULIN, PROG #### [facility] , #### T4F, TRISTEN, TSH3, A1C WTH eA, FILIBERTO, GLU, T3F #### [address] Basophils Auto (Bld) [#/Vol] Ordered By: Delano Francis on 09-22-2024 Basophils (Bld) [#/Vol] Automated basophil count 0.0-0.2 [facility] Basophils/100 WBC Auto (Bld) Ordered By: Delano Francis on 09-22-2024 Basophils/100 WBC (Bld) Automated basophil % . [facility] Calcium [Mass/volume] in Ser um or PlasmaOrdered By: Delano Francis on 09-22-2024 Calcium [Mass/Vol] 9.4 mg/dL Normal 8.6-10.3 [facility] Comment on above: Performed By: #### D VENITA, LC T4, [id number], SEROTON, TEST F + T, T3R, THYGLOB AB, ESTRADIOL, TPO, SHBG, ESTRONE, INSULIN, PROG #### [facility] , #### T4F, TRISTEN, TSH3, A1C WTH eA, FILIBERTO, GLU, T3F #### [address] Calcium [Mass/Vol] Calcium [Mass/volume ] in Serum or Plasma 8.6-10.3 [facility] Carbon dioxide, total [Moles /volume] in Serum or PlasmaOrdered By: Delano Francis on 09-22-2024 CO2 [Moles/Vol] 29.2 mmol/L Normal 21.0-31.0 [facility] Comment on above: Performed By: #### D VENITA, LC T4, [id number], SEROTON, TEST F + T, T3R, THYGLOB AB, ESTRADIOL, TPO, SHBG, ESTRONE, INSULIN, PROG #### [facility] , #### T4F, TRISTEN, TSH3, A1C WTH eA, FILIBERTO, GLU, T3F #### [facility] [address] CO2 [Moles/Vol] Carbon dioxide, tota l [Moles/volume] in Serum or Plasma 21.0-31.0 [facility] Chloride [Moles/volume] in S stevo or PlasmaOrdered By: Delano Francis on 09-22-2024 Chloride [Moles/Vol] 105 mmol/L Normal [address] [place] [address] Comment on above: Performed By: #### D VENITA, LC T4, [id number], SEROTON, TEST F + T, T3R, THYGLOB AB, ESTRADIOL, TPO, SHBG, ESTRONE, INSULIN, PROG #### [facility] , #### T4F, TRISTEN, TSH3, A1C WTH eA, FILIBERTO, GLU, T3F #### [facility] [address] [place] [address] [place] Chloride [Moles/Vol] Chloride [Moles/vol ume] in Serum or Plasma -[address] [place] [address] Cholesterol [Mass/volume] in Serum or PlasmaOrdered By: Delano Francis on 09-22-2024 Cholesterol [Mass/Vol] 217 mg/dL High 140-200 [facility] Comment on above: Chol less than 200 m g/dl low riskChol 201-239 mg/dl borderline riskChol 240 mg/dl and greater high risk Result Comment: Chol less than 200 mg/dl low risk Chol 201-239 mg/dl borderline risk Chol 240 mg/dl and greater high risk Performed By: #### D HEAS, LC T4, [id number], SEROTON, TEST F + T, T3R, THYGLOB AB, ESTRADIOL, TPO, SHBG, ESTRONE, INSULIN, PROG #### [facility] , #### T4F, TRISTEN, TSH3, A1C WTH eA, FILIBERTO, GLU, T3F #### [address] Cholesterol [Mass/Vol] Cholesterol [Mass/volume] in Serum or Plasma High 140-200 [facility] Comment on above: Chol less than 200 m g/dl low riskChol 201-239 mg/dl borderline riskChol 240 mg/dl and greater high risk Cholesterol in HDL [Mass/vol ume] in Serum or PlasmaOrdered By: Delano Francis on 09-22-2024 Cholesterol in HDL [Mass/Vol] Serum or plasma high density lipoprotein (HDL) cholesterol measurement [facility] Comment on above: HDL CHOL ATP-III CLA SSIFICATION Cardiovascular RiskHDL > or equal to 60 mg/dL LOWHDL < 40 mg/dL HIGH Cholesterol in LDL Calc [Mas s/Vol]Ordered By: Delano Francis on 09-22-2024 Cholesterol in LDL [Mass/Vol] 148 mg/dL High 0-100 [facility] Comment on above: LDL ATP III CLASSIFI CATIONLDL less than 100 mg/dL OptimalLDL 100-129 mg/dL Near or above optimalLDL 130-159 mg/dL Borderline highLDL 160-189 mg/dL HighLDL greater than 189 mg/dL Very high Cholesterol in LDL [Mass/Vol] Cholesterol in LDL [Mass/volume] in Serum or Plasma by calculation High 0-100 [facility] Comment on above: LDL ATP III CLASSIFI CATIONLDL less than 100 mg/dL OptimalLDL 100-129 mg/dL Near or above optimalLDL 130-159 mg/dL Borderline highLDL 160-189 mg/dL HighLDL greater than 189 mg/dL Very high Cholesterol in VLDL Calc [Ma ss/Vol]Ordered By: Delano Francis on 09-22-2024 Cholesterol in VLDL [Mass/Vol] 10 mg/dL [facility] Cholesterol in VLDL [Mass/Vol] Cholesterol in VLDL [Mass/volume] in Serum or Plasma by calculation [facility] Creatinine [Mass/volume] in Serum or PlasmaOrdered By: Delano Francis on 09-22-2024 Creatinine [Mass/Vol] 0.73 mg/dL Normal 0.60-1.[address] [facility] Comment on above: Performed By: #### D HEAS, LC T4, [id number], SEROTON, TEST F + T, T3R, THYGLOB AB, ESTRADIOL, TPO, SHBG, ESTRONE, INSULIN, PROG #### [facility] , #### T4F, TRISTEN, TSH3, A1C WTH eA, FILIBERTO, GLU, T3F #### [address] Creatinine [Mass/Vol] Creatinine [Mass/v olume] in Serum or Plasma 0.60-1.20 [facility] Employee Basic Metabolic [employer] 09-22-2024 GFR/1.73 sq M.predicted MDRD (S/P/Bld) [Vol rate/Area] mL/min/{1.73_m2} Normal [facility] Comment on above: Performed By: #### D DANIELLEAS, LC T4, [id number], SEROTON, TEST F + T, T3R, THYGLOB AB, ESTRADIOL, TPO, SHBG, ESTRONE, INSULIN, PROG #### [facility] , #### T4F, TRISTEN, TSH3, A1C WTH eA, FILIBERTO, GLU, T3F #### [address] Employee Complete Blood Coun ton 09-22-2024 Mean Corpuscular HGB Conc 34.2 g/dL Normal 32.0-35.0 [facility] Comment on above: Performed By: #### D HEAS, LC T4, [id number], SEROTON, TEST F + T, T3R, THYGLOB AB, ESTRADIOL, TPO, SHBG, ESTRONE, INSULIN, PROG #### [facility] , #### T4F, TRISTEN, TSH3, A1C WTH eA, FILIBERTO, GLU, T3F #### [address] NRBC% 0.0 /100{WBC} Normal 0-0.5 [facility] Comment on above: Performed By: #### D VENITA, LC T4, [id number], SEROTON, TEST F + T, T3R, THYGLOB AB, ESTRADIOL, TPO, SHBG, ESTRONE, INSULIN, PROG #### [facility] , #### T4F, TRISTEN, TSH3, A1C WTH eA, FILIBERTO, GLU, T3F #### [address] Employee Lipid Profileon LDL Cholesterol,Calculated 148 mg/dL High 0-100 [facility] Comment on above: Result Comment: LDL ATP III CLASSIFICATION LDL less than 100 mg/dL Optimal LDL 100-129 mg/dL Near or above optimal LDL 130-159 mg/dL Borderline high LDL 160-189 mg/dL High LDL greater than 189 mg/dL Very high Performed By: #### D VENITA, LC T4, [id number], SEROTON, TEST F + T, T3R, THYGLOB AB, ESTRADIOL, TPO, SHBG, ESTRONE, INSULIN, PROG #### [facility] , #### T4F, TRISTEN, TSH3, A1C WTH eA, FILIBERTO, GLU, T3F #### [address] Triglyceride w/Reflex 52 mg/dL Normal 0-149 [...] Performed By: #### D HEAS, LC T4, [id number], SEROTON, TEST F + T, T3R, THYGLOB AB, ESTRADIOL, TPO, SHBG, ESTRONE, INSULIN, PROG #### [facility] , #### T4F, TRISTEN, TSH3, A1C WTH eA, FILIBERTO, GLU, T3F #### [address] VLDL CHOLESTEROL 10 mg/dL Normal [facility] Comment on above: Performed By: #### D HEAS, LC T4, [id number], SEROTON, TEST F + T, T3R, THYGLOB AB, ESTRADIOL, TPO, SHBG, ESTRONE, INSULIN, PROG #### [facility] , #### T4F, TRISTEN, TSH3, A1C WTH eA, FILIBERTO, GLU, T3F #### [address] Employee Thyroid Stim [employer] lonnie 09-22-2024 Employee Thyroid Stim Hormone 2.30 u[iU]/mL Normal 0.45-5.33 [facility] Comment on above: Result Comment: PERF ORMED BY: [place] [id number] PATHOLOGIST EM PHYSICIAN JOSE GOEL M.D. Performed By: #### D HEAS, LC T4, [id number], SEROTON, TEST F + T, T3R, THYGLOB AB, ESTRADIOL, TPO, SHBG, ESTRONE, INSULIN, PROG #### [facility] , #### T4F, TRISTEN, TSH3, A1C WTH eA, FILIBERTO, GLU, T3F #### [address] Eosinophils Auto (Bld) [#/Vo l]Ordered By: Delano Francis on 09-22-2024 Eosinophils (Bld) [#/Vol] Automated eosinophil count 0.0-0.45 [facility] Eosinophils/100 WBC Auto (Bl d)Ordered By: Delnao Francis on 09-22-2024 Eosinophils/100 WBC (Bld) Automated eosinophil % . [facility] Erythrocyte distribution wid th Auto (RBC) [Ratio]Ordered By: Delano Francis on 09-22-2024 Erythrocyte distribution width (RBC) [Ratio] Erythrocyte distribution width [Ratio] by Automated count 11.9-15.3 [facility] Erythrocyte distribution wid th [Ratio] by Automated countOrdered By: Delano Francis on 09-22-2024 Erythrocyte distribution width (RBC) [Ratio] 13.2 % Normal 11.9-15.3 [facility] Comment on above: Performed By: #### D HEAS, LC T4, [id number], SEROTON, TEST F + T, T3R, THYGLOB AB, ESTRADIOL, TPO, SHBG, ESTRONE, INSULIN, PROG #### [facility] , #### T4F, TRISTEN, TSH3, A1C WTH eA, FILIBERTO, GLU, T3F #### [facility] [address] [place] [address] [place] Erythrocytes [#/volume] in B lood by Automated countOrdered By: Delano Francis on 09-22-2024 RBC (Bld) [#/Vol] 3.91 10*6/uL Normal 3.60-5.00 [facility] Comment on above: Performed By: #### D DANIELLEAS, LC T4, [id number], SEROTON, TEST F + T, T3R, THYGLOB AB, ESTRADIOL, TPO, SHBG, ESTRONE, INSULIN, PROG #### [facility] , #### T4F, TRISTEN, TSH3, A1C WTH eA, FILIBERTO, GLU, T3F #### [facility] [address] [place] [address] [place] Glucose [Mass/volume] in Ser um or PlasmaOrdered By: Delano Francis on 09-22-2024 Glucose [Mass/Vol] 83 mg/dL Normal 70-100 [facility] Comment on above: Performed By: #### D HEAS, LC T4, [id number], SEROTON, TEST F + T, T3R, THYGLOB AB, ESTRADIOL, TPO, SHBG, ESTRONE, INSULIN, PROG #### [facility] , #### T4F, TRISTEN, TSH3, A1C WTH eA, FILIBERTO, GLU, T3F #### [facility] [address] [place] [address] [place] Glucose [Mass/Vol] Glucose [Mass/volume ] in Serum or Plasma 70-100 [facility] Hematocrit Auto (Bld) [Volum e fraction]Ordered By: Delano Francis on 09-22-2024 Hematocrit (Bld) [Volume fraction] Hematocrit [Volume Fraction] of Blood by Automated count 34.0-46.4 [facility] Hematocrit [Volume Fraction] of Blood by Automated countOrdered By: Delano Francis on 09-22-2024 Hematocrit (Bld) [Volume fraction] 35.9 % Normal 34.0-46.4 [facility] Comment on above: Performed By: #### D DANIELLEAS, LC T4, [id number], SEROTON, TEST F + T, T3R, THYGLOB AB, ESTRADIOL, TPO, SHBG, ESTRONE, INSULIN, PROG #### [facility] , #### T4F, TRISTEN, TSH3, A1C WTH eA, FILIBERTO, GLU, T3F #### [facility] [address] [place] [address] [place] Hemoglobin [Mass/volume] in BloodOrdered By: Delano Francis on 09-22-2024 Hemoglobin (Bld) [Mass/Vol] 12.3 g/dL Normal 11.8-15.4 [facility] Comment on above: Performed By: #### D DANIELLEAS, LC T4, [id number], SEROTON, TEST F + T, T3R, THYGLOB AB, ESTRADIOL, TPO, SHBG, ESTRONE, INSULIN, PROG #### [facility] , #### T4F, TRISTEN, TSH3, A1C WTH eA, FILIBERTO, GLU, T3F #### [facility] [address] [place] [address] [place] Hemoglobin (Bld) [Mass/Vol] Hemoglobin [Mass/volume] in Blood 11.8-15.4 [facility] Leukocytes [#/volume] correc calvin for nucleated erythrocytes in Blood by Automated counOrdered By: Delano Francis on 09-22-2024 WBC corrected for nucl RBC Auto (Bld) [#/Vol] 5.1 10*3/uL .-.6 [facility] WBC corrected for nucl RBC Auto (Bld) [#/Vol] Leukocytes [#/volume] corrected for nucleated erythrocytes in Blood by Automated coun .-. [facility] Leukocytes [#/volume] in Blo od by Automated countOrdered By: Delano Francis on 09-22-2024 WBC (Bld) [#/Vol] 5.1 10*3/uL Normal 3.8-11.6 [facility] Comment on above: Performed By: #### D HEAS, LC T4, [id number], SEROTON, TEST F + T, T3R, THYGLOB AB, ESTRADIOL, TPO, SHBG, ESTRONE, INSULIN, PROG #### [facility] , #### T4F, TRISTEN, TSH3, A1C WTH eA, FILIBERTO, GLU, T3F #### [facility] [address] [place] [address] [place] Lymphocytes Auto (Bld) [#/Vo l]Ordered By: Delano Francis on 09-22-2024 Lymphocytes (Bld) [#/Vol] Lymphocytes [#/volume] in Blood by Automated count 1.00-4.8 [facility] Lymphocytes [#/volume] in Bl ood by Automated countOrdered By: Delano Francis on 09-22-2024 Lymphocytes (Bld) [#/Vol] 1.3 10*3/uL Normal 1.00-4.8 [facility] Comment on above: Performed By: #### D HEAS, LC T4, [id number], SEROTON, TEST F + T, T3R, THYGLOB AB, ESTRADIOL, TPO, SHBG, ESTRONE, INSULIN, PROG #### [facility] , #### T4F, TRISTEN, TSH3, A1C WTH eA, FILIBERTO, GLU, T3F #### [facility] [address] [place] [address] [place] Lymphocytes/100 WBC Auto (Bl d)Ordered By: Delano Francis on 09-22-2024 Lymphocytes/100 WBC (Bld) Lymphocytes/100 leukocytes in Blood by Automated count . [facility] Lymphocytes/100 leukocytes i n Blood by Automated countOrdered By: Delano Francis on 09-22-2024 Lymphocytes/100 WBC (Bld) 25.3 % Normal . [facility] Comment on above: Performed By: #### D HEAS, LC T4, [id number], SEROTON, TEST F + T, T3R, THYGLOB AB, ESTRADIOL, TPO, SHBG, ESTRONE, INSULIN, PROG #### [facility] , #### T4F, TRISTEN, TSH3, A1C WTH eA, IFLIBERTO, GLU, T3F #### [address] MCH Auto (RBC) [Entitic mass ]Ordered By: Delano Francis on 09-22-2024 MCH (RBC) [Entitic mass] MCH [Entitic mass] by Automated count 24.7-34.3 [facility] MCH [Entitic mass] by Automa calvin countOrdered By: Delano Francis on 09-22-2024 MCH (RBC) [Entitic mass] 31.4 pg Normal 24.7-34.3 [facility] Comment on above: Performed By: #### D HEAS, LC T4, [id number], SEROTON, TEST F + T, T3R, THYGLOB AB, ESTRADIOL, TPO, SHBG, ESTRONE, INSULIN, PROG #### [facility] , #### T4F, TRISTEN, TSH3, A1C WTH eA, FILIBERTO, GLU, T3F #### [address] MCHC Auto (RBC) [Mass/Vol]Or dered By: Delano Francis on 09-22-2024 MCHC (RBC) [Mass/Vol] 34.2 g/dL 32.0-35.[address] [facility] MCHC (RBC) [Mass/Vol] MCHC [Mass/volume] by Automated count 32.0-35.0 [facility] MCV Auto (RBC) [Entitic vol] Ordered By: Delano Francis on 09-22-2024 MCV (RBC) [Entitic vol] MCV [Entitic vol ume] by Automated count 80-100 [facility] MCV [Entitic volume] by Auto mated countOrdered By: Delano Francis on 09-22-2024 MCV (RBC) [Entitic vol] 91.7 fL Normal 80-100 [facility] Comment on above: Performed By: #### D HEAS, LC T4, [id number], SEROTON, TEST F + T, T3R, THYGLOB AB, ESTRADIOL, TPO, SHBG, ESTRONE, INSULIN, PROG #### [facility] , #### T4F, TRISTEN, TSH3, A1C WTH eA, FILIBERTO, GLU, T3F #### [facility] [address] [place] [address] [place] Monocytes Auto (Bld) [#/Vol] Ordered By: Delano Francis on 09-22-2024 Monocytes (Bld) [#/Vol] Automated blood monocyte count 0.0-0.8 [facility] Monocytes/100 WBC Auto (Bld) Ordered By: Delano Francis on 09-22-2024 Monocytes/100 WBC (Bld) Automated monocyte % . [facility] Neutrophils Auto (Bld) [#/Vo l]Ordered By: Delano Francis on 09-22-2024 Neutrophils (Bld) [#/Vol] Neutrophils [#/volume] in Blood by Automated count 1.8-7.7 [facility] Neutrophils [#/volume] in Bl ood by Automated countOrdered By: Delano Francis on 09-22-2024 Neutrophils (Bld) [#/Vol] 3.2 10*3/uL Normal 1.8-7.7 [facility] Comment on above: Performed By: #### D HEAS, LC T4, [id number], SEROTON, TEST F + T, T3R, THYGLOB AB, ESTRADIOL, TPO, SHBG, ESTRONE, INSULIN, PROG #### [facility] , #### T4F, TRISTEN, TSH3, A1C WTH eA, FILIBERTO, GLU, T3F #### [facility] [address] [place] [address] [place] Neutrophils/100 WBC Auto (Bl d)Ordered By: Delano Francis on 09-22-2024 Neutrophils/100 WBC (Bld) Automated neutrophil % . [facility] No Panel InformationOrdered By: Delano Francis on 09-22-2024 Estimated GFR (CKD-EPI) > 60.0 mL/Min [facility] Creatinine Clearance (Chem N/A [facility] Nucleated erythrocytes [Pres ence] in Blood by Automated countOrdered By: Delano Francis on 09-22-2024 Nucleated RBC Auto Ql (Bld) 0.0 /100{WBC} 0-0.5 [facility] Nucleated RBC Auto Ql (Bld) Nucleated erythrocytes [Presence] in Blood by Automated count 0-0.5 [facility] Platelet mean volume Auto (B ld) [Entitic vol]Ordered By: Delano Francis on 09-22-2024 Platelet mean volume (Bld) [Entitic vol] Platelet mean volume [Entitic volume] in Blood by Automated count 6.3-10.7 [facility] Platelet mean volume [Entiti c volume] in Blood by Automated countOrdered By: Delano Francis on 09-22-2024 Platelet mean volume (Bld) [Entitic vol] 7.3 fL Normal 6.3-10.7 [facility] Comment on above: Performed By: #### D DANIELLEAS, LC T4, [id number], SEROTON, TEST F + T, T3R, THYGLOB AB, ESTRADIOL, TPO, SHBG, ESTRONE, INSULIN, PROG #### [facility] , #### T4F, TRISTEN, TSH3, A1C WTH eA, FILIBERTO, GLU, T3F #### [address] Platelets Auto (Bld) [#/Vol] Ordered By: Delano Francis on 09-22-2024 Platelets (Bld) [#/Vol] Platelets [#/vol ume] in Blood by Automated count 150-450 [facility] Platelets [#/volume] in Bloo d by Automated countOrdered By: Delano Francis on 09-22-2024 Platelets (Bld) [#/Vol] 328 10*3/uL Normal 150-450 [facility] Comment on above: Performed By: #### D HEAS, LC T4, [id number], SEROTON, TEST F + T, T3R, THYGLOB AB, ESTRADIOL, TPO, SHBG, ESTRONE, INSULIN, PROG #### [facility] , #### T4F, TRISTEN, TSH3, A1C WTH eA, FILIBERTO, GLU, T3F #### [facility] [address] [place] [address] [place] Potassium [Moles/volume] in Serum or PlasmaOrdered By: Delano Francis on 09-22-2024 Potassium [Moles/Vol] 4.5 mmol/L Normal 3.5-5.[address] [facility] Comment on above: Performed By: #### D HEAS, LC T4, [id number], SEROTON, TEST F + T, T3R, THYGLOB AB, ESTRADIOL, TPO, SHBG, ESTRONE, INSULIN, PROG #### [facility] , #### T4F, TRISTEN, TSH3, A1C WTH eA, FILIBERTO, GLU, T3F #### [place] [address] [place] Potassium [Moles/Vol] Potassium [Moles/v olume] in Serum or Plasma 3.5-5.1 [facility] RBC Auto (Bld) [#/Vol]Ordere d By: Delano Francis on 09-22-2024 RBC (Bld) [#/Vol] Erythrocytes [#/volu me] in Blood by Automated count 3.60-5.00 [facility] Serum or plasma anion gap de terminationOrdered By: Delano Francis on 09-22-2024 Anion gap [Moles/Vol] 8.3 mmol/L Normal 6.0-15.[address] [facility] Comment on above: Performed By: #### D HEAS, LC T4, [id number], SEROTON, TEST F + T, T3R, THYGLOB AB, ESTRADIOL, TPO, SHBG, ESTRONE, INSULIN, PROG #### [facility] , #### T4F, TRISTEN, TSH3, A1C WTH eA, FILIBERTO, GLU, T3F #### [facility] [address] [place] [address] [place] Anion gap [Moles/Vol] Serum or plasma an ion gap determination 6.0-15.0 [facility] Serum or plasma high density lipoprotein (HDL) cholesterol measurementOrdered By: Delano Francis on 09-22-2024 Cholesterol in HDL [Mass/Vol] 59 mg/dL Normal 23-92 [facility] Comment on above: HDL CHOL ATP-III CLA SSIFICATION Cardiovascular RiskHDL > or equal to 60 mg/dL LOWHDL < 40 mg/dL HIGH Result Comment: HDL CHOL ATP-III CLASSIFICATION Cardiovascular Risk HDL > or equal to 60 mg/dL LOW HDL < 40 mg/dL HIGH Performed By: #### D VENITA, LC T4, [id number], SEROTON, TEST F + T, T3R, THYGLOB AB, ESTRADIOL, TPO, SHBG, ESTRONE, INSULIN, PROG #### [facility] , #### T4F, TRISTEN, TSH3, A1C WTH eA, FILIBERTO, GLU, T3F #### [facility] [address] Serum or plasma total choles terol/high density lipoprotein (HDL) cholesterol mass ratOrdered By: Delano Francis on 09-22-2024 Cholesterol.total/Alivia sterol in HDL [Mass ratio] 3.7 {ratio} Normal <5.0 [facility] Comment on above: Performed By: #### D VENITA, LC T4, [id number], SEROTON, TEST F + T, T3R, THYGLOB AB, ESTRADIOL, TPO, SHBG, ESTRONE, INSULIN, PROG #### [facility] , #### T4F, TRISTEN, TSH3, A1C WTH eA, FILIBERTO, GLU, T3F #### [facility] [address] Cholesterol.total/Alivia sterol in HDL [Mass ratio] Serum or plasma total cholesterol/high density lipoprotein (HDL) cholesterol mass rat <5.0 [facility] Sodium [Moles/volume] in Ser um or PlasmaOrdered By: Delano Francis on 09-22-2024 Sodium [Moles/Vol] 138 mmol/L Normal 136-145 [facility] Comment on above: Performed By: #### D VENITA, LC T4, [id number], SEROTON, TEST F + T, T3R, THYGLOB AB, ESTRADIOL, TPO, SHBG, ESTRONE, INSULIN, PROG #### [facility] , #### T4F, TRISTEN, TSH3, A1C WTH eA, FILIBERTO, GLU, T3F #### [facility] [address] Sodium [Moles/Vol] Sodium [Moles/volume ] in Serum or Plasma 136-145 [facility] Thyrotropin [Units/volume] i n Serum or PlasmaOrdered By: Delano Francis on 09-22-2024 TSH Qn 2.30 m[IU]/L 0.45-5.33 [facility] TSH Qn Thyrotropin [Units/volume] in Serum or Plasma 0.45-5.33 [facility] Triglyceride [Mass/volume] i n Serum or PlasmaOrdered By: Delano Francis on 09-22-2024 Triglyceride [Mass/Vol] 52 mg/dL 0-149 [facility] Comment on above: TRIG ATP III CLASSIF ICATIONTRIG less than 150 mg/dL NormalTRIG 150-199 mg/dL Borderline highTRIG 200-500 mg/dL High TRIG greater than 500 mg/dL Very highStandard traceable to the Center for Disease Conrtrol and Prevention (CDC) test method. Triglyceride [Mass/Vol] Triglyceride [Mass/volume] in Serum or Plasma 0-149 [facility] Comment on above: TRIG ATP III CLASSIF ICATIONTRIG less than 150 mg/dL NormalTRIG 150-199 mg/dL Borderline highTRIG 200-500 mg/dL High TRIG greater than 500 mg/dL Very highStandard traceable to the Center for Disease Conrtrol and Prevention (CDC) test method. Urea nitrogen [Mass/volume] in Serum or PlasmaOrdered By: Delano Francis on 09-22-2024 Urea nitrogen [Mass/Vol] 9 mg/dL Normal 7-25 [facility] Comment on above: Performed By: #### D VENITA, JOSSE T4, [id number], SEROTON, TEST F + T, T3R, THYGLOB AB, ESTRADIOL, TPO, SHBG, ESTRONE, INSULIN, PROG #### [facility] , #### T4F, TRISTEN, TSH3, A1C WTH eA, FILIBERTO, GLU, T3F #### [facility] [address] Urea nitrogen [Mass/Vol] Urea nitrogen [Mass/volume] in Serum or Plasma 06-23 [facility] WBC Auto (Bld) [#/Vol]Ordere d By: Delano Francis on 09-22-2024 WBC (Bld) [#/Vol] Leukocytes [#/volume ] in Blood by Automated count 3.8-11.6 [facility] IGP,APTIMA HPV,AGE GDLNon AGE GDLN ACOG TESTING Note . [facility] Comment on above: TESTS RESULT FLAG UN ITS REF RANGE LAB Clinician Provided Cytology Information Source.............Cervix;Endocervix No. of containers..01 ThinPrep Vial Age Algo ACOG Lara... 30-65 01 FLAG LEGEND: L-Low Normal,H-High Normal,LL-Alert Low,HH-Alert High <-Panic Low,>-Panic High,A-Abnormal,AA-Critical Abnormal Performed at: 01 =G [address] [id number] Ilana Heath MD, HPV APTIMA Negative Negative [facility] Comment on above: This nucleic acid am plification test detects fourteen high- risk HPV types (16,18,31,33,35,39,45,51,52,56,58,59,66,68) without differentiation. Performed at: =G - [facility] [id number] Staff Editor: Ilana Heath MD, Phone: [phone] Performed at: - [facility], [place] [id number] Staff Editor: Ilana Heath MD, Phone: [phone] IGP, APTIMA HPV, RFX 16/18,45 Note . [facility] Comment on above: TESTS RESULT FLAG UN ITS REF RANGE LAB DIAGNOSIS: 02 NEGATIVE FOR INTRAEPITHELIAL LESION OR MALIGNANCY. Specimen adequacy: 02 Satisfactory for evaluation. No endocervical component is identified. Performed by: 02 Chema Camargo, Cadmium Plater (ASCP) . 02 Note: Note 02 The [...] High,A-Abnormal,AA-Critical Abnormal Performed at: 02 WB [facility] [address] [place] [address] Ilana Heath MD, BRUSH-SPATULA CERVIX ENDOCERVIX [facility] 1,25 Dihydroxy Vit D Calcitr olon 01-07-2024 1,25 Dihydroxy Vit D Calcitrol 56.6 pg/mL Normal 24.8-81.5 [facility] Comment on above: Result Comment: Perf ormed at: BN - [facility] [address] [place] [id number] Staff Editor: Quinton Wolf MD, Phone: [phone] Performed By: #### D VENITA, LC T4, [id number], SEROTON, TEST F + T, T3R, THYGLOB AB, ESTRADIOL, TPO, SHBG, ESTRONE, INSULIN, PROG #### [facility] , #### T4F, TRISTEN, TSH3, A1C WTH eA, FILIBERTO, GLU, T3F #### [facility] [address] [place] [address] A1C with Estimated Average G luon 01-07-2024 Glucose [Mass/Vol] 105 mg/dL Normal [facility] Comment on above: Result Comment: PERF ORMED BY: [place] [id number] PATHOLOGIST EM PHYSICIAN JOSE GOEL M.D. Performed By: #### D VENITA, LC T4, [id number], SEROTON, TEST F + T, T3R, THYGLOB AB, ESTRADIOL, TPO, SHBG, ESTRONE, INSULIN, PROG #### [facility] , #### T4F, TRISTEN, TSH3, A1C WTH eA, FILIBERTO, GLU, T3F #### [place] [address] [place] Antithyroglobulin Abon 01-07 Antithyroglobulin Ab <1.0 Normal 0.0-0.9 [facility] Comment on above: Result Comment: Thyr oglobulin Antibody measured by [employer] Methodology Performed at: [facility] [address] [id number] Staff Editor: Baudilio Leyva PhD, Phone: [phone] Performed By: #### D VENITA, LC T4, [id number], SEROTON, TEST F + T, T3R, THYGLOB AB, ESTRADIOL, TPO, SHBG, ESTRONE, INSULIN, PROG #### [facility] , #### T4F, TRISTEN, TSH3, A1C WTH eA, FILIBERTO, GLU, T3F #### [address] Cortisolon 01-07-2024 Cortisol 6.8 ug/dL Normal [facility] Comment on above: Result Comment: Refe rence range: AM 6 - 24 ug/dl PM <10 ug/dl [facility] Laboratory sales and catering coordinator and method: HELGA UNICEL DXI, POLYCLONAL ANTIBODY CORTISOL ASSAY. PERFORMED BY: [place] [id number] PATHOLOGIST EM PHYSICIAN JOSE GOEL M.D. Performed By: #### D VENITA, LC T4, [id number], SEROTON, TEST F + T, T3R, THYGLOB AB, ESTRADIOL, TPO, SHBG, ESTRONE, INSULIN, PROG #### [facility] , #### T4F, TRISTEN, TSH3, A1C WTH eA, FILIBERTO, GLU, T3F #### [address] Dehydroepiandrosterone Sulfa teOrdered By: Deisy Villar on 01-07-2024 Dehydroepiandrosterone Sulfate 174.0 ug/dL Normal 84.8-378.0 [facility] Comment on above: Performed By: #### D HEAS, LC T4, [id number], SEROTON, TEST F + T, T3R, THYGLOB AB, ESTRADIOL, TPO, SHBG, ESTRONE, INSULIN, PROG #### [facility] , #### T4F, TRISTEN, TSH3, A1C WTH eA, FILIBERTO, GLU, T3F #### [facility] [address] [place] [id number] [facility] Estradiolon 01-07-2024 Estradiol 300.0 pg/mL Normal . [facility] Comment on above: Result Comment: Adul t Female Range Follicular phase 12.5 - 166.0 Ovulation phase 85.8 - 498.0 Luteal phase 43.8 - 211.0 Postmenopausal <6.0 - 54.7 1st trimester 215.0 - >4300.0 Elías ECLIA methodology Performed By: #### D VENITA, LC T4, [id number], SEROTON, TEST F + T, T3R, THYGLOB AB, ESTRADIOL, TPO, SHBG, ESTRONE, INSULIN, PROG #### [facility] , #### T4F, TRISTEN, TSH3, A1C WTH eA, FILIBERTO, GLU, T3F #### [facility] [address] [place] [address] [facility] Estrone, Serumon 01-07-2024 Estrone, Serum 46 pg/mL Normal 27-231 [facility] Comment on above: Result Comment: Rang e Adult (Premenopausal) 27 - 231 Menstrual Cycle (1-10 days) 19 - 149 Menstrual Cycle (11-20 days) 32 - 176 Menstrual Cycle (21-30 days) 37 - 200 Performed at: [address] [id number] Staff Editor: Quinton Wolf MD, Phone: [phone] Performed By: #### D VENITA, LC T4, [id number], SEROTON, TEST F + T, T3R, THYGLOB AB, ESTRADIOL, TPO, SHBG, ESTRONE, INSULIN, PROG #### [facility] , #### T4F, TRISTEN, TSH3, A1C WTH eA, FILIBERTO, GLU, T3F #### [facility] [address] [place] [address] [facility] Ferritin [Mass/volume] in Se rum or PlasmaOrdered By: Deisy Villar on 01-07-2024 Ferritin [Mass/Vol] 44.8 ng/mL Normal 11.0-306.8 [facility] Comment on above: Performed By: #### D HEAS, LC T4, [id number], SEROTON, TEST F + T, T3R, THYGLOB AB, ESTRADIOL, TPO, SHBG, ESTRONE, INSULIN, PROG #### [facility] , #### T4F, TRISTEN, TSH3, A1C WTH eA, FILIBERTO, GLU, T3F #### [facility] [address] Free testosterone measuremen t by LC-MS/MSOrdered By: Deisy Villar on 01-07-2024 Testosterone Free [Mass/Vol] 0.3 pg/mL 0.0-4.2 [facility] Comment on above: Performed at: [address] [id number] Director: Baudilio Leyva PhD, Phone: [phone] at: - [facility] [address] [id number] Director: Quinton Wolf MD, Phone: [phone] Glucose [Mass/volume] in Ser um or PlasmaOrdered By: Deisy Villar on 01-07-2024 Glucose [Mass/Vol] 84 mg/dL Normal 70-100 [facility] Comment on above: ADA recommended refe rence rangeRandom Glucose Reference Range is dependent on time and content of last meal. Glucose of more than 200 mg/dL in a nonstressed, ambulatory subject supports the diagnosis of Diabetes Mellitus. Result Comment: [place] om Glucose Reference Range is dependent on time and content of last meal. Glucose of more than 200 mg/dL in a nonstressed, ambulatory subject supports the diagnosis of Diabetes Mellitus. ADA recommended reference range Performed By: #### D HEAS, LC T4, [id number], SEROTON, TEST F + T, T3R, THYGLOB AB, ESTRADIOL, TPO, SHBG, ESTRONE, INSULIN, PROG #### [facility] , #### T4F, TRISTEN, TSH3, A1C WTH eA, FILIBERTO, GLU, T3F #### [facility] [address] Glucose mean value [Mass/vol ume] in Blood Estimated from glycated hemoglobinOrdered By: Deisy Villar on 01-07-2024 Average glucose Estimated from glycated hemoglobin (Bld) [Mass/Vol] 105 mg/dL [facility] Hemoglobin A1c percentageOrd ered By: Deisy Gonzalezey on 01-07-2024 HbA1c (Bld) [Mass fraction] 5.3 % Normal 4.3-5.6 [facility] Comment on above: Increased risk for d iabetes: 5.7 - 6.4diabetes: >6.4glycemic control for adults with diabetes: <7.0 Result Comment: Incr eased risk for diabetes: 5.7 - 6.4 diabetes: >6.4 glycemic control for adults with diabetes: <7.0 Performed By: #### D VENITA, JOSSE T4, [id number], SEROTON, TEST F + T, T3R, THYGLOB AB, ESTRADIOL, TPO, SHBG, ESTRONE, INSULIN, PROG #### [facility] , #### T4F, TRISTEN, TSH3, A1C WTH eA, FILIBERTO, GLU, T3F #### [facility] [address] [place] [address] Insulinon 01-07-2024 Insulin 4.5 u[iU]/mL Normal 2.6-24.9 [facility] Comment on above: Result Comment: Perf ormed at: - [facility] [address] [id number] Staff Editor: Baudilio Leyva PhD, Phone: [phone] Performed By: #### Adria NATHAN, JOSSE T4, [id number], SEROTON, TEST F + T, T3R, THYGLOB AB, ESTRADIOL, TPO, SHBG, ESTRONE, INSULIN, PROG #### [facility] , #### T4F, TRISTEN, TSH3, A1C WTH eA, FILIBERTO, GLU, T3F #### [facility] [address] [place] [address] Lab Alie Thyroxine (T4)on T4 [Mass/Vol] 8.2 ug/dL Normal 4.5-12.0 [facility] Comment on above: Performed By: #### D HEAS, LC T4, [id number], SEROTON, TEST F + T, T3R, THYGLOB AB, ESTRADIOL, TPO, SHBG, ESTRONE, INSULIN, PROG #### [facility] , #### T4F, TRISTEN, TSH3, A1C WTH eA, FILIBERTO, GLU, T3F #### [facility] [address] No Panel InformationOrdered By: Deisy Villar on 01-07-2024 Free Thyroxine (T4) Direct 8.2 ug/dL 4.5-12.0 [facility] Reverse Triiodothyronine (T3) 18.9 ng/dL 9.2-24.1 [facility] Comment on above: This test was develo ped and its performance characteristicsdetermined by [facility]. It has not been cleared orapproved by the Food and Drug Administration.Performed at: [address] [id number] Director: Quinton Wolf MD, Phone: [phone] Sex Hormone Binding Globulin 95.4 nmol/L 24.6-122.0 [facility] Comment on above: Performed at: [address] [id number] Director: Baudilio Leyva PhD, Phone: [phone] Plasma serotonin measurement (mass/volume)Ordered By: Deisy Villar on 01-07-2024 Serotonin (P) [Mass/Vol] 71 ng/mL 31-207 [facility] Comment on above: This test was develo ped and its performance characteristicsdetermined by [employer]. It has not been cleared orapproved by the Food and Drug Administration.Performed at: [address] [id number] Director: Quinton Wolf MD, Phone: [phone] Progesteroneon 01-07-2024 Progesterone 0.2 ng/mL Normal . [facility] Comment on above: Result Comment: Foll icular phase 0.1 - 0.9 Luteal phase 1.8 - 23.9 Ovulation phase 0.1 - 12.0 First trimester 11.0 - 44.3 Second trimester 25.4 - 83.3 Third trimester 58.7 - 214.0 Postmenopausal 0.0 - 0.1 Performed By: #### D VENITA, LC T4, [id number], SEROTON, TEST F + T, T3R, THYGLOB AB, ESTRADIOL, TPO, SHBG, ESTRONE, INSULIN, PROG #### [facility] , #### T4F, TRISTEN, TSH3, A1C WTH eA, FILIBERTO, GLU, T3F #### [facility] [address] Random cortisol measurementO rdered By: Deisy Villar on 01-07-2024 Cortisol [Mass/Vol] 6.8 ug/dL [facility] Comment on above: [facility] sales and catering coordinator and method:Preggers DXI, POLYCLONAL ANTIBODY CORTISOL ASSAY.Reference range: AM 6 - 24 ug/dl PM <10 ug/dl Serotonin, Serumon 4 Serotonin, Serum 71 ng/mL Normal 31-207 [facility] Comment on above: Result Comment: This test was developed and its performance characteristics determined by [employer]. It has not been cleared or approved by the Food and Drug Administration. Performed at: [address] [id number] Staff Editor: Quinton Wolf MD, Phone: [phone] PERFORMED BY: [place] [address] PATHOLOGIST EM PHYSICIAN JOSE GOEL M.D. Performed By: #### D JOSSE NATHAN T4, [id number], SEROTON, TEST F + T, T3R, THYGLOB AB, ESTRADIOL, TPO, SHBG, ESTRONE, INSULIN, PROG #### [facility] , #### T4F, TRISTEN, TSH3, A1C WTH eA, FILIBERTO, GLU, T3F #### [facility] [address] [id number] [facility] Serum estrone measurementOrd ered By: Deisy Villar on 01-07-2024 E1 [Mass/Vol] 46 pg/mL 27-231 [facility] Comment on above: Range Adult (Premeno pausal) 27 - 231 Menstrual Cycle (1-10 days) 19 - 149 Menstrual Cycle (11-20 days) 32 - 176 Menstrual Cycle (21-30 days) 37 - 200Performed at: [employer] - [facility] [address] [id number] Director: Quinton oWlf MD, Phone: [phone] Serum or plasma calcitriol m easurement (mass/volume)Ordered By: Deisy Villar on 01-07-2024 1,25-dihydroxyvitamin D3 [Mass/Vol] 56.6 pg/mL 24.8-81.5 [facility] Comment on above: Performed at: BN - [facility] [address] [id number] Director: uQinton Wolf MD, Phone: [phone] Serum or plasma estradiol (E 2) measurement (mass/volume)Ordered By: Deisy Villar on 01-07-2024 E2 [Mass/Vol] 300.0 pg/mL . [facility] Comment on above: Adult Female Range F ollicular phase 12.5 - 166.0 Ovulation phase 85.8 - 498.0 Luteal phase 43.8 - 211.0 Postmenopausal <6.0 - 54.7 1st trimester 215.0 - >4300.0Roche ECLIA methodology Serum or plasma insulin kevin urement (units/volume)Ordered By: Deisy Villar on 01-07-2024 Insulin Qn 4.5 u[iU]/mL 2.6-24.9 [facility] Comment on above: Performed at: - [facility] [address] [id number] Director: Baudilio Leyva PhD, Phone: [phone] Serum or plasma progesterone measurement (mass/volume)Ordered By: Deisy Villar on 01-07-2024 Progesterone [Mass/Vol] 0.2 ng/mL . [facility] Comment on above: Follicular phase 0.1 - 0.9 Luteal phase 1.8 - 23.9 Ovulation phase 0.1 - 12.0 First trimester 11.0 - 44.3 Second trimester 25.4 - 83.3 Third trimester 58.7 - 214.0 Postmenopausal 0.0 - 0.1 Serum or plasma thyroglobuli n antibody assay (units/volume)Ordered By: Deisy Villar on 01-07-2024 Thyroglobulin Ab Qn [IU]/mL 0.0-0.9 [facility] Comment on above: Thyroglobulin Antibo dy measured by Helga Butter SystemsMethodologyPerformed at: [facility] [id number] Director: Baudilio Leyav PhD, Phone: [phone] Serum or plasma thyroperoxid ase antibody assay (units/volume)Ordered By: Deisy Villar on 01-07-2024 TPO Ab Qn [IU]/mL 0-34 [facility] Comment on above: Performed at: [facility] [address] [id number] Director: Baudilio Leyva PhD, Phone: [phone] Sex Hormone Binding Globulin on 01-07-2024 Sex Hormone Binding Globulin 95.4 Normal 24.6-122.0 [facility] Comment on above: Result Comment: Perf ormed at: [facility] [address] [id number] Staff Editor: Baudilio Leyva PhD, Phone: [phone] Performed By: #### Adria NATHAN, LC T4, [id number], SEROTON, TEST F + T, T3R, THYGLOB AB, ESTRADIOL, TPO, SHBG, ESTRONE, INSULIN, PROG #### [facility] , #### T4F, TRISTEN, TSH3, A1C WTH eA, FILIBERTO, GLU, T3F #### [address] Testosterone Free and TotalO rdered By: Deisy Villar on 01-07-2024 Testosterone [Mass/Vol] 16 ng/dL Normal 8-60 [facility] Comment on above: Performed By: #### D VENITA, LC T4, [id number], SEROTON, TEST F + T, T3R, THYGLOB AB, ESTRADIOL, TPO, SHBG, ESTRONE, INSULIN, PROG #### [facility] , #### T4F, TRISTEN, TSH3, A1C WTH eA, FILIBERTO, GLU, T3F #### [address] Testosterone Free and Totalo n 01-07-2024 Testosterone,Free 0.3 pg/mL Normal 0.0-4.2 [facility] Comment on above: Result Comment: Perf ormed at: [address] [id number] Staff Editor: Baudilio Leyva PhD, Phone: [phone] Performed at: [address] [id number] Staff Editor: Quinton Wofl MD, Phone: [phone] Performed By: #### JOSSE SMITH T4, [id number], SEROTON, TEST F + T, T3R, THYGLOB AB, ESTRADIOL, TPO, SHBG, ESTRONE, INSULIN, PROG #### [facility] , #### T4F, TRISTEN, TSH3, A1C WTH eA, FILIBERTO, GLU, T3F #### [address] Thyroid Peroxidase Antibodie son 01-07-2024 Thyroid Peroxidase Antibodies <9 Normal 0-34 [facility] Comment on above: Result Comment: Perf ormed at: [address] [id number] Staff Editor: Baudilio Leyva PhD, Phone: [phone] Performed By: #### JOSSE SMITH T4, [id number], SEROTON, TEST F + T, T3R, THYGLOB AB, ESTRADIOL, TPO, SHBG, ESTRONE, INSULIN, PROG #### [facility] , #### T4F, TRISTEN, TSH3, A1C WTH eA, FILIBERTO, GLU, T3F #### [address] Thyrotropin [Units/volume] i n Serum or PlasmaOrdered By: Deisy Villar on 01-07-2024 TSH Qn 1.80 m[IU]/L Normal 0.45-5.33 [facility] Comment on above: Performed By: #### D HEAS, LC T4, [id number], SEROTON, TEST F + T, T3R, THYGLOB AB, ESTRADIOL, TPO, SHBG, ESTRONE, INSULIN, PROG #### [facility] , #### T4F, TRISTEN, TSH3, A1C WTH eA, FILIBERTO, GLU, T3F #### [address] Thyroxine (T4) free [Mass/vo lume] in Serum or PlasmaOrdered By: Deisy Villar on 01-07-2024 Free T4 [Mass/Vol] 0.88 ng/dL Normal 0.61-1.12 [facility] Comment on above: Performed By: #### D HEAS, LC T4, [id number], SEROTON, TEST F + T, T3R, THYGLOB AB, ESTRADIOL, TPO, SHBG, ESTRONE, INSULIN, PROG #### [facility] , #### T4F, TRISTEN, TSH3, A1C WT eA, FILIBERTO, GLU, T3F #### [place] [address] [place] Triiodothyronine (T3) Freeon 01-07-2024 Triiodothyronine (T3) Free 3.90 pg/mL Normal 2.50-3.90 [facility] Comment on above: Result Comment: PERF ORMED BY: [place] [address] PATHOLOGIST EM PHYSICIAN JOSE GOEL M.D. Performed By: #### D HEAS, LC T4, [id number], SEROTON, TEST F + T, T3R, THYGLOB AB, ESTRADIOL, TPO, SHBG, ESTRONE, INSULIN, PROG #### [facility] , #### T4F, TRISTEN, TSH3, A1C WTH eA, FILIBERTO, GLU, T3F #### [address] Triiodothyronine (T3) Free [ Mass/volume] in Serum or PlasmaOrdered By: Deisy Villar on 01-07-2024 Free T3 [Mass/Vol] 3.90 pg/mL 2.50-3.90 [facility] Triiodothyronine (T3) Revers lonnie 01-07-2024 Triiodothyronine (T3) Reverse 18.9 ng/dL Normal 9.2-24.1 [facility] Comment on above: Result Comment: This test was developed and its performance characteristics determined by [facility]. It has not been cleared or approved by the Food and Drug Administration. Performed at: [facility] [address] [id number] Staff Editor: Quinton Wolf MD, Phone: [phone] Performed By: #### D HEAS, LC T4, [id number], SEROTON, TEST F + T, T3R, THYGLOB AB, ESTRADIOL, TPO, SHBG, ESTRONE, INSULIN, PROG #### [facility] , #### T4F, TRISTEN, TSH3, A1C WTH eA, FILIBERTO, GLU, T3F #### [facility] [address] Alanine aminotransferase [En zymatic activity/volume] in Serum or PlasmaOrdered By: Delano Francis on 09-17-2023 ALT [Catalytic activity/Vol] 20 U/L 7-52 [facility] Albumin [Mass/volume] in Ser um or Plasma by Bromocresol green (BCG) dye binding methoOrdered By: Delano Francis on 09-17-2023 Albumin BCG dye [Mass/Vol] 4.3 g/dL 3.5-5.7 [facility] Alkaline phosphatase [Enzyma tic activity/volume] in Serum or PlasmaOrdered By: Delano Francis on 09-17-2023 ALP [Catalytic activity/Vol] 62 U/L 34-104 [facility] Aspartate aminotransferase [ Enzymatic activity/volume] in Serum or PlasmaOrdered By: Delano Francis on 09-17-2023 AST [Catalytic activity/Vol] 22 U/L 13-39 [facility] Basophils Auto (Bld) [#/Vol] Ordered By: Delano Francis on 09-17-2023 Basophils (Bld) [#/Vol] 0.0 10*3/uL 0.0-0.2 [facility] Basophils/100 WBC Auto (Bld) Ordered By: Delano Francis on 09-17-2023 Basophils/100 WBC (Bld) 0.4 % . [facility] Bilirubin.total [Mass/volume ] in Serum or PlasmaOrdered By: Delano Francis on 09-17-2023 Bilirubin [Mass/Vol] 0.7 mg/dL 0.3-1.0 [facility] Calcium [Mass/volume] in Ser um or PlasmaOrdered By: Delano Francis on 09-17-2023 Calcium [Mass/Vol] 9.4 mg/dL 8.6-10.3 [facility] Carbon dioxide, total [Moles /volume] in Serum or PlasmaOrdered By: Delano Francis on 09-17-2023 CO2 [Moles/Vol] 26.2 mmol/L 21.0-31.0 [facility] Chloride [Moles/volume] in S stevo or PlasmaOrdered By: Delano Francis on 09-17-2023 Chloride [Moles/Vol] 102 mmol/L 98-107 [facility] Cholesterol [Mass/volume] in Serum or PlasmaOrdered By: Delano Francis on 09-17-2023 Cholesterol [Mass/Vol] 214 mg/dL 140-200 [facility] Comment on above: Chol less than 200 m g/dl low riskChol 201-239 mg/dl borderline riskChol 240 mg/dl and greater high risk Cholesterol in LDL Calc [Mas s/Vol]Ordered By: Delano Francis on 09-17-2023 Cholesterol in LDL [Mass/Vol] 161 mg/dL 0-100 [facility] Comment on above: LDL ATP III CLASSIFI CATIONLDL less than 100 mg/dL OptimalLDL 100-129 mg/dL Near or above optimalLDL 130-159 mg/dL Borderline highLDL 160-189 mg/dL HighLDL greater than 189 mg/dL Very high Cholesterol in VLDL Calc [Ma ss/Vol]Ordered By: Delano Francis on 09-17-2023 Cholesterol in VLDL [Mass/Vol] 9 mg/dL [facility] Creatinine [Mass/volume] in Serum or PlasmaOrdered By: Delano Francis on 09-17-2023 Creatinine [Mass/Vol] 0.79 mg/dL 0.60-1.[address] [facility] Eosinophils Auto (Bld) [#/Vo l]Ordered By: Delano Francis on 09-17-2023 Eosinophils (Bld) [#/Vol] 0.1 10*3/uL 0.0-0.45 [facility] Eosinophils/100 WBC Auto (Bl d)Ordered By: Delano Francis on 09-17-2023 Eosinophils/100 WBC (Bld) 0.9 % . [facility] Erythrocyte distribution wid th Auto (RBC) [Ratio]Ordered By: Delano Francis on 09-17-2023 Erythrocyte distribution width (RBC) [Ratio] 12.4 % 11.9-15.3 [facility] Globulin Calc (S) [Mass/Vol] Ordered By: Delano Francis on 09-17-2023 Globulin (S) [Mass/Vol] 2.5 g/dL [facility] Glucose [Mass/volume] in Ser um or PlasmaOrdered By: Delano Francis on 09-17-2023 Glucose [Mass/Vol] 75 mg/dL 70-100 [facility] Hematocrit Auto (Bld) [Volum e fraction]Ordered By: Delano Francis on 09-17-2023 Hematocrit (Bld) [Volume fraction] 34.2 % 34.0-46.4 [facility] Hemoglobin [Mass/volume] in BloodOrdered By: Delano Francis on 09-17-2023 Hemoglobin (Bld) [Mass/Vol] 11.8 g/dL 11.8-15.4 [facility] Leukocytes [#/volume] correc calvin for nucleated erythrocytes in Blood by Automated counOrdered By: Delano Francis on 09-17-2023 WBC corrected for nucl RBC Auto (Bld) [#/Vol] 5.9 10*3/uL 3.8-11.6 [facility] Lymphocytes Auto (Bld) [#/Vo l]Ordered By: Delano Francis on 09-17-2023 Lymphocytes (Bld) [#/Vol] 1.8 10*3/uL 1.00-4.8 [facility] Lymphocytes/100 WBC Auto (Bl d)Ordered By: Delano Francis on 09-17-2023 Lymphocytes/100 WBC (Bld) 30.5 % . [facility] MCH Auto (RBC) [Entitic mass ]Ordered By: Delano Francis on 09-17-2023 MCH (RBC) [Entitic mass] 31.8 pg 24.7-34.3 [facility] MCHC Auto (RBC) [Mass/Vol]Or dered By: Delano Francis on 09-17-2023 MCHC (RBC) [Mass/Vol] 34.4 g/dL 32.0-35.[address] [facility] MCV Auto (RBC) [Entitic vol] Ordered By: Delano Francis on 09-17-2023 MCV (RBC) [Entitic vol] 92.5 fL 80-100 [facility] Monocytes Auto (Bld) [#/Vol] Ordered By: Delano Francis on 09-17-2023 Monocytes (Bld) [#/Vol] 0.5 10*3/uL 0.0-0.8 [facility] Monocytes/100 WBC Auto (Bld) Ordered By: Delano Francis on 09-17-2023 Monocytes/100 WBC (Bld) 9.2 % . [facility] Neutrophils Auto (Bld) [#/Vo l]Ordered By: Delano Francis on 09-17-2023 Neutrophils (Bld) [#/Vol] 3.5 10*3/uL 1.8-7.7 [facility] Neutrophils/100 WBC Auto (Bl d)Ordered By: Delano Francis on 09-17-2023 Neutrophils/100 WBC (Bld) 59.0 % . [facility] No Panel InformationOrdered By: Delano Francis on 09-17-2023 Estimated GFR (CKD-EPI) > 60.0 mL/Min [facility] Creatinine Clearance (Chem N/A [facility] Nucleated erythrocytes [Pres ence] in Blood by Automated countOrdered By: Delano Francis on 09-17-2023 Nucleated RBC Auto Ql (Bld) 0.2 /100{WBC} 0-0.5 [facility] Platelet mean volume Auto (B ld) [Entitic vol]Ordered By: Delano Francis on 09-17-2023 Platelet mean volume (Bld) [Entitic vol] 8.1 fL 6.3-10.7 [facility] Platelets Auto (Bld) [#/Vol] Ordered By: Delano Francis on 09-17-2023 Platelets (Bld) [#/Vol] 250 10*3/uL 150-450 [facility] Potassium [Moles/volume] in Serum or PlasmaOrdered By: Delano Francis on 09-17-2023 Potassium [Moles/Vol] 4.0 mmol/L 3.5-5.[address] [facility] Protein [Mass/volume] in Ser um or PlasmaOrdered By: Delano Francis on 09-17-2023 Protein [Mass/Vol] 6.8 g/dL 6.4-8.9 [facility] RBC Auto (Bld) [#/Vol]Ordere d By: Delano Francis on 09-17-2023 RBC (Bld) [#/Vol] 3.70 10*6/uL 3.60-5.00 [facility] Serum or plasma albumin/glob ulin mass ratioOrdered By: Delano Francis on 09-17-2023 Albumin/Globulin [Mass ratio] 1.7 {ratio} [facility] Serum or plasma anion gap de terminationOrdered By: Delano Francis on 09-17-2023 Anion gap [Moles/Vol] 10.8 mmol/L 6.0-15.0 [facility] Serum or plasma high density lipoprotein (HDL) cholesterol measurementOrdered By: Delano Francis on 09-17-2023 Cholesterol in HDL [Mass/Vol] 43 mg/dL 23-92 [facility] Comment on above: HDL CHOL ATP-III CLA SSIFICATION Cardiovascular RiskHDL > or equal to 60 mg/dL LOWHDL < 40 mg/dL HIGH Serum or plasma total choles terol/high density lipoprotein (HDL) cholesterol mass ratOrdered By: Delano Francis on 09-17-2023 Cholesterol.total/Alivia sterol in HDL [Mass ratio] 5.0 {ratio} <5.0 [facility] Sodium [Moles/volume] in Ser um or PlasmaOrdered By: Delano Francis on 09-17-2023 Sodium [Moles/Vol] 135 mmol/L 136-145 [facility] Thyrotropin [Units/volume] i n Serum or PlasmaOrdered By: Delano Francis on 09-17-2023 TSH Qn 1.04 m[IU]/L 0.45-5.33 [facility] Triglyceride [Mass/volume] i n Serum or PlasmaOrdered By: Delano Francis on 09-17-2023 Triglyceride [Mass/Vol] 48 mg/dL 0-149 [facility] Comment on above: TRIG ATP III CLASSIF ICATIONTRIG less than 150 mg/dL NormalTRIG 150-199 mg/dL Borderline highTRIG 200-500 mg/dL High TRIG greater than 500 mg/dL Very highStandard traceable to the Center for Disease Conrtrol and Prevention (CDC) test method. Urea nitrogen [Mass/volume] in Serum or PlasmaOrdered By: Delano Francis on 09-17-2023 Urea nitrogen [Mass/Vol] 7 mg/dL 7-25 [facility] WBC Auto (Bld) [#/Vol]Ordere d By: Delano Francis on 09-17-2023 WBC (Bld) [#/Vol] 5.9 10*3/uL 3.8-11.6 [facility] Mononucleosis Test, [place] 1 Heterophile Ab LA Ql (S) Negative [employer] Other Quick Strepon 09-26-2022 S. pyogenes Org specific cx Ql (Throat) Negative [employer] Other Quick Strep [employer] Other SARS-CoV-2 (COVID-19) RNA NA A+probe Ql (Resp)on 09-26-2022 SARS-CoV-2 (COVID-19) RNA ROB+probe Ql (Unsp spec) Negative [employer] Other PAP ACOG PANEL 2: 30 to 65on 09-01-2022 . . Normal [facility] Comment on above: Result Comment: Perf ormed at: WB Performed By: #### [id number] #### [facility] [address] [place] [address] Dr. Zonia Zhang Age Gdln ACOG Testing 30-65 Normal [facility] Comment on above: Performed By: #### [id number] #### [facility] [address] [place] [address] Dr. Zonia Zhang DIAGNOSIS: Comment Normal [facility] Comment on above: Result Comment: NEGA TIVE FOR INTRAEPITHELIAL LESION OR MALIGNANCY. Performed at: WB Performed By: #### [id number] #### [facility] [address] [place] [address] Dr. Zonia Zhang HPV Aptima Negative Normal Negative [facility] Comment on above: Result Comment: This nucleic acid amplification test detects fourteen high-risk HPV types (16,18,31,33,35,39,45,51,52,56,58,59,66,68) without differentiation. Performed at: =G Performed By: #### [id number] #### [facility] [address] [place] [address] Dr. Zonia Zhang Methodology: Comment Normal [facility] Comment on above: Result Comment: This liquid based ThinPrep(R) pap test was screened with the use of an image guided system. Performed at: WB Performed By: #### [id number] #### [facility] [address] [place] [address] Dr. Zonia Zhang Note: Comment Normal [facility] Comment on above: Result Comment: The Pap smear is a screening test designed to aid in the detection of premalignant and malignant conditions of the uterine cervix. It is not a diagnostic procedure and should not be used as the sole means of detecting cervical cancer. Both false-positive and false-negative reports do occur. . Performed at: WB Performed By: #### [id number] #### [facility] [address] [place] [address] Dr. Zonia Zhang Performed by: Comment Normal [facility] Comment on above: Result Comment: Negin Tomas, Cadmium Plater (ASCP) Performed at: WB Performed By: #### [id number] #### [facility] [address] [place] [address] Dr. Zonia Zhang Specimen adequacy: Comment Normal [facility] Comment on above: Result Comment: Sati sfactory for evaluation. Endocervical and/or squamous metaplastic cells (endocervical component) are present. Performed at: WB Performed By: #### [id number] #### [facility] [address] [address] [address] Zonia Zhang Basophils Auto (Bld) [#/Vol] Ordered By: Delano Francis on 08-07-2022 Basophils (Bld) [#/Vol] 0.0 10*3/uL 0.0-0.2 [facility] Basophils/100 WBC Auto (Bld) Ordered By: Delano Francis on 08-07-2022 Basophils/100 WBC (Bld) 0.5 % . [facility] Blood hemoglobin measurement (mass/volume)Ordered By: Delano Francis on 08-07-2022 Hemoglobin (Bld) [Mass/Vol] 12.7 g/dL 11.8-15.4 [facility] Blood leukocytes automated c ount (number/volume)Ordered By: Delano Francis on 08-07-2022 WBC (Bld) [#/Vol] 5.0 10*3/uL 4.5-11.0 [facility] Body fluid albumin measureme nt (mass/volume)Ordered By: Delano Francis on 08-07-2022 Albumin (Body fld) [Mass/Vol] 4.1 g/dL 3.2-5.5 [facility] Cholesterol [Mass/volume] in Serum or PlasmaOrdered By: Delano Francis on 08-07-2022 Cholesterol [Mass/Vol] 253 mg/dL 140-200 [facility] Comment on above: Chol less than 200 m g/dl low risk Chol 201-239 mg/dl borderline risk Chol 240 mg/dl and greater high risk Chol less than 200 m g/dl low riskChol 201-239 mg/dl borderline riskChol 240 mg/dl and greater high risk Cholesterol in LDL Calc [Mas s/Vol]Ordered By: Delano Francis on 08-07-2022 Cholesterol in LDL [Mass/Vol] 181 mg/dL 0-100 [facility] Comment on above: LDL ATP [...] 08-07-2022 Cholesterol in VLDL [Mass/Vol] 12 mg/dL [facility] Creatinine and Glomerular fi ltration rate.predicted panel (S/P/Bld)Ordered By: Delano Francis on 08-07-2022 Creatinine [Mass/Vol] 0.76 mg/dL 0.44-1.[address] [facility] Eosinophils Auto (Bld) [#/Vo l]Ordered By: Delano Francis on 08-07-2022 Eosinophils (Bld) [#/Vol] 0.1 10*3/uL 0.0-0.45 [facility] Eosinophils/100 WBC Auto (Bl d)Ordered By: Delano Francis on 08-07-2022 Eosinophils/100 WBC (Bld) 1.6 % . [facility] Erythrocyte distribution wid th Auto (RBC) [Ratio]Ordered By: Delano Francis on 08-07-2022 Erythrocyte distribution width (RBC) [Ratio] 12.6 % 11.9-15.3 [facility] Estimated glomerular filtrat ion rate (GFR) non- AmericanOrdered By: Delano Francis on 08-07-2022 GFR/1.73 sq M.predicted among non-blacks MDRD (S/P/Bld) [Vol rate/Area] > 60 mL/Min [facility] Globulin Calc (S) [Mass/Vol] Ordered By: Delano Francis on 08-07-2022 Globulin (S) [Mass/Vol] 2.3 g/dL [facility] Hematocrit Auto (Bld) [Volum e fraction]Ordered By: Delano Francis on 08-07-2022 Hematocrit (Bld) [Volume fraction] 37.5 % 34.0-46.4 [facility] Laboratory - Chemistry and C hemistry - challengeOrdered By: Delano Francis on 08-07-2022 Glucose [Mass/Vol] 88 mg/dL 70-100 [facility] Laboratory - Hematology and Cell countsOrdered By: Delano Francis on 08-07-2022 Nucleated RBC/100 WBC (Bld) [Ratio] 0.1 % 0-0.5 [facility] Lymphocytes Auto (Bld) [#/Vo l]Ordered By: Delano Francis on 08-07-2022 Lymphocytes (Bld) [#/Vol] 1.4 10*3/uL 1.00-4.8 [facility] Lymphocytes/100 WBC Auto (Bl d)Ordered By: Delano Francis on 08-07-2022 Lymphocytes/100 WBC (Bld) 28.1 % . [facility] MCH Auto (RBC) [Entitic mass ]Ordered By: Delano Francis on 08-07-2022 MCH (RBC) [Entitic mass] 31.8 pg 24.7-34.3 [facility] MCHC Auto (RBC) [Mass/Vol]Or dered By: Delano Francis on 08-07-2022 MCHC (RBC) [Mass/Vol] 33.8 g/dL 32.0-35.[address] [facility] MCV Auto (RBC) [Entitic vol] Ordered By: Delano Francis on 08-07-2022 MCV (RBC) [Entitic vol] 94.3 fL 80-100 [facility] Monocyte %Ordered By: Delano Francis on 08-07-2022 Monocyte % 60 mg/dL 35-149 [facility] Comment on above: TRIG ATP [...] 08-07-2022 Monocytes (Bld) [#/Vol] 0.5 10*3/uL 0.0-0.8 [facility] Monocytes/100 WBC Auto (Bld) Ordered By: Delano Francis on 08-07-2022 Monocytes/100 WBC (Bld) 10.1 % . [facility] Neutrophils Auto (Bld) [#/Vo l]Ordered By: Delano Francis on 08-07-2022 Neutrophils (Bld) [#/Vol] 3.0 10*3/uL 1.8-7.7 [facility] Neutrophils/100 WBC Auto (Bl d)Ordered By: Delano Francis on 08-07-2022 Neutrophils/100 WBC (Bld) 59.7 % . [facility] No Panel InformationOrdered By: Delano Francis on 08-07-2022 Estimated GFR () > 60 mL/Min [facility] Comment on above: GFR estimated refere nce range: According to KDOQI guidelines, <60 ml/min/1.73m2 is sufficient to diagnose a patient with chronic kidney disease. Nicotine Metabolite Negative Cutoff=25 [facility] Comment on above: Performed at: [address] [id number] Director: Quinton Wolf MD, Phone: [phone] Pharmacy Creatinine Clearance (Chem N/A [facility] Platelet mean volume Auto (B ld) [Entitic vol]Ordered By: Delano Francis on 08-07-2022 Platelet mean volume (Bld) [Entitic vol] 7.8 fL 6.3-10.7 [facility] Platelets Auto (Bld) [#/Vol] Ordered By: Delano Francis on 08-07-2022 Platelets (Bld) [#/Vol] 275 10*3/uL 150-450 [facility] Protein [Mass/volume] in Ser um or PlasmaOrdered By: Delano Francis on 08-07-2022 Protein [Mass/Vol] 6.4 g/dL 6.1-7.9 [facility] RBC Auto (Bld) [#/Vol]Ordere d By: Delano Francis on 08-07-2022 RBC (Bld) [#/Vol] 3.97 10*6/uL 3.60-5.00 [facility] Serum or plasma alanine troy otransferase measurement without P-5'-P (enzymatic activiOrdered By: Delano Francis on 08-07-2022 ALT No additional P-5'-P [Catalytic activity/Vol] 13 U/L 10-60 [facility] Serum or plasma albumin/glob ulin mass ratioOrdered By: Delano Francis on 08-07-2022 Albumin/Globulin [Mass ratio] 1.8 {ratio} [facility] Serum or plasma alkaline nova sphatase measurement (enzymatic activity/volume)Ordered By: Delano Francis on 08-07-2022 ALP [Catalytic activity/Vol] 52 U/L 32-92 [facility] Serum or plasma anion gap de terminationOrdered By: Delano Francis on 08-07-2022 Anion gap [Moles/Vol] 11.7 mmol/L 6.0-15.0 [facility] Serum or plasma aspartate am inotransferase measurement (enzymatic activity/volume)Ordered By: Delano Francis on 08-07-2022 AST [Catalytic activity/Vol] 15 U/L 10-42 [facility] Serum or plasma calcium kevin urement (mass/volume)Ordered By: Delano Francis on 08-07-2022 Calcium [Mass/Vol] 9.8 mg/dL 8.2-10.2 [facility] Serum or plasma chloride ra surement (moles/volume)Ordered By: Delano Francis on 08-07-2022 Chloride [Moles/Vol] 101 mmol/L 95-114 [facility] Serum or plasma high density lipoprotein (HDL) cholesterol measurementOrdered By: Delano Francis on 08-07-2022 Cholesterol in HDL [Mass/Vol] 60 mg/dL 35-85 [facility] Comment on above: HDL CHOL [...] on 08-07-2022 Sodium [Moles/Vol] 136 mmol/L 136-146 [facility] Serum or plasma total biliru bin measurement (mass/volume)Ordered By: Delano Francis on 08-07-2022 Bilirubin [Mass/Vol] 1.0 mg/dL 0.3-1.2 [facility] Serum or plasma total carbon dioxide measurement (moles/volume)Ordered By: Delano Francis on 08-07-2022 CO2 [Moles/Vol] 27.7 mmol/L 22.0-30.0 [facility] Serum or plasma total choles terol/high density lipoprotein (HDL) cholesterol mass ratOrdered By: Delano Francis on 08-07-2022 Cholesterol.total/Alivia sterol in HDL [Mass ratio] 4.2 {ratio} <5.0 [facility] Serum or plasma urea nitroge n measurement (mass/volume)Ordered By: Delano Francis on 08-07-2022 Urea nitrogen [Mass/Vol] 9 mg/dL 9-23 [facility] TSH DL <= 0.005 mIU/L QnOrde red By: Delano Francis on 08-07-2022 TSH Qn 1.43 m[IU]/L 0.45-5.33 [facility] T3, TOTAL (TRIIODOTHYRONINE) on 06-07-2022 T3, TOTAL 88 ng/dL Normal 71-180 [facility] Comment on above: Performed By: #### T 3TOTAL #### [facility] [address] [address] [address] Zonia Zhang FREE T4on 06-06-2022 Free T4 [Mass/Vol] 0.94 ng/dL Normal 0.76-1.46 [facility] Comment on above: Performed By: #### F T4 #### [facility] [address] [address] [address] Zonia Zhang TSHon 06-06-2022 TSH 1.364 uIU/mL Normal 0.358-3.74 0 [facility] Comment on above: Performed By: #### T SH #### [facility] [address] [address] [address] Zonia Zhang COVID Quick Testingon 2021 Result Positive [employer] Other Quick Fluon 12-27-2021 FLUAV Ab CF (S) [Titer] Negative N [employer] Other FLUBV Ab CF (S) [Titer] Negative N [employer] Other Vital Signs Date Time Vital Sign Value Performing Clinician Facility 07-17-2025 14:59-0400 Body mass index (BMI) [Ratio] 36.77 kg/m2 Ángel Sita DO Work Phone: [facility] 07-17-2025 14:59-0400 Body weight 106.5 kg Ángel Sita DO Work Phone: [facility] 07-17-2025 14:59-0400 Diastolic blood pressure 70 mm[Hg] Ángel Sita DO Work Phone: [facility] 07-17-2025 14:59-0400 Systolic blood pressure 118 mm[Hg] Ángel Sita DO Work Phone: [facility] 07-10-2025 13:59-0400 Body mass index (BMI) [Ratio] 36.41 kg/m2 Ángel Sita DO Work Phone: [facility] 07-10-2025 13:59-0400 Body weight 105.46 kg Ángel Sita DO Work Phone: [facility] 07-10-2025 13:59-0400 Diastolic blood pressure 74 mm[Hg] Ángel Sita DO Work Phone: [facility] 07-10-2025 13:59-0400 Systolic blood pressure 126 mm[Hg] Ángel Sita DO Work Phone: [facility] 06-26-2025 13:08-0400 Body mass index (BMI) [Ratio] 36.2 kg/m2 Ángel Sita DO Work Phone: [facility] 06-26-2025 13:08-0400 Body weight 104.83 kg Ángel Sita DO Work Phone: [facility] 06-26-2025 13:08-0400 Diastolic blood pressure 74 mm[Hg] Ángel Sita DO Work Phone: [facility] 06-26-2025 13:08-0400 Systolic blood pressure 116 mm[Hg] Ángel Sita DO Work Phone: [facility] 06-12-2025 14:21-0400 Body mass index (BMI) [Ratio] 35.73 kg/m2 Ángel Sita DO Work Phone: [facility] 06-12-2025 14:21-0400 Body weight 103.47 kg Ángel Sita DO Work Phone: [facility] 06-12-2025 14:21-0400 Diastolic blood pressure 70 mm[Hg] Ángel Sita DO Work Phone: [facility] 06-12-2025 14:21-0400 Systolic blood pressure 120 mm[Hg] Ángel Sita DO Work Phone: [facility] 05-30-2025 09:10-0400 Body mass index (BMI) [Ratio] 35.52 kg/m2 Ángel Sita DO Work Phone: [facility] 05-30-2025 09:10-0400 Body weight 102.88 kg Ángel Sita DO Work Phone: [facility] 05-30-2025 09:10-0400 Diastolic blood pressure 78 mm[Hg] Ángel Sita DO Work Phone: [facility] 05-30-2025 09:10-0400 Systolic blood pressure 120 mm[Hg] Ángel Sita DO Work Phone: [facility] 05-01-2025 08:36-0400 Body mass index (BMI) [Ratio] 34.43 kg/m2 Deisy [place] PA Work Phone: [facility] 05-01-2025 08:36-0400 Body weight 99.7 kg Deisy Adithya PA Work Phone: [facility] 05-01-2025 08:36-0400 Diastolic blood pressure 74 mm[Hg] Deisy Adithya PA Work Phone: [facility] 05-01-2025 08:36-0400 Systolic blood pressure 118 mm[Hg] Deisy Adithya PA Work Phone: [facility] 03-30-2025 10:28-0400 Body mass index (BMI) [Ratio] 32.89 kg/m2 Ángel Sita DO Work Phone: [facility] 03-30-2025 10:28-0400 Body weight 95.25 kg Ángel Sita DO Work Phone: [facility] 03-30-2025 10:28-0400 Diastolic blood pressure 84 mm[Hg] Ángel Sita DO Work Phone: [facility] 03-30-2025 10:28-0400 Systolic blood pressure 120 mm[Hg] Ángel Sita DO Work Phone: [facility] 03-02-2025 09:58-0400 Body mass index (BMI) [Ratio] 31.76 kg/m2 Deisy [place] PA Work Phone: [facility] 03-02-2025 09:58-0400 Body weight 91.99 kg Deisy Adithya PA Work Phone: [facility] 03-02-2025 09:58-0400 Diastolic blood pressure 72 mm[Hg] Deisy Adithya PA Work Phone: [facility] 03-02-2025 09:58-0400 Systolic blood pressure 120 mm[Hg] Deisy Adithya PA Work Phone: [facility] 02-02-2025 09:25-0500 Body mass index (BMI) [Ratio] 30.54 kg/m2 Ángel Sita DO Work Phone: [facility] 02-02-2025 09:25-0500 Body weight 88.45 kg Ángel Sita DO Work Phone: [facility] 02-02-2025 09:25-0500 Diastolic blood pressure 70 mm[Hg] Ángel Sita DO Work Phone: [facility] 02-02-2025 09:25-0500 Systolic blood pressure 120 mm[Hg] Ángel Sita DO Work Phone: [facility] 10-18-2024 11:19-0500 Body height 170.18 cm Robles Ball DO Work Phone: [facility] 10-18-2024 11:19-0500 Body mass index (BMI) [Ratio] 29.7 kg/m2 Robles Ball DO Work Phone: [facility] 10-18-2024 11:19-0500 Body weight 86.23 kg Robles Ball DO Work Phone: [facility] 10-18-2024 11:19-0500 Diastolic blood pressure 77 mm[Hg] Robles Ball DO Work Phone: [facility] 10-18-2024 11:19-0500 Heart rate 88 /min Robles Ball DO Work Phone: [facility] 10-18-2024 11:19-0500 Respiratory rate 12 /min Roblse Ball DO Work Phone: [facility] 10-18-2024 11:19-0500 Systolic blood pressure 111 mm[Hg] Robles Ball DO Work Phone: [facility] 09-13-2024 14:28-0400 Body mass index (BMI) [Ratio] 28.79 kg/m2 Ángel Sita DO Work Phone: [facility] 09-13-2024 14:28-0400 Body weight 83.37 kg Ángel Sita DO Work Phone: [facility] 09-13-2024 14:28-0400 Diastolic blood pressure 70 mm[Hg] Ángel Sita DO Work Phone: [facility] 09-13-2024 14:28-0400 Systolic blood pressure 120 mm[Hg] Ángel Sita DO Work Phone: [facility] 05-03-2024 14:40-0400 Body height 170.18 cm [facility] 05-03-2024 14:40-0400 Body mass index (BMI) [Ratio] 28.3 kg/m2 [facility] 05-03-2024 14:40-0400 Body weight 82.1 kg [facility] 05-03-2024 14:40-0400 Diastolic blood pressure 82 mm[Hg] [facility] 05-03-2024 14:40-0400 Heart rate 78 /min [facility] 05-03-2024 14:40-0400 SaO2% (BldA) [Mass fraction] 98 % [facility] 05-03-2024 14:40-0400 Systolic blood pressure 122 mm[Hg] [facility] 01-06-2024 14:20-0500 Body height 170.2 cm Deisy MUNOZ Work Phone: [facility] 01-06-2024 14:20-0500 Body mass index (BMI) [Ratio] 28.05 kg/m2 Deisy MUNOZ Work Phone: [facility] 01-06-2024 14:20-0500 Body weight 81.25 kg Deisy MUNOZ Work Phone: [facility] 01-06-2024 14:20-0500 Diastolic blood pressure 70 mm[Hg] Deisy MUNOZ Work Phone: [facility] 01-06-2024 14:20-0500 Systolic blood pressure 120 mm[Hg] Deisy MUNOZ Work Phone: [facility] 10-02-2023 10:00-0400 Body height 170.18 cm Robles Ball Other [employer] Other 10-02-2023 10:00-0400 Body mass index (BMI) [Ratio] 29.38 kg/m2 Robles Ball Other [employer] Other 10-02-2023 10:00-0400 Body weight 85.1 kg Robles Ball Other [employer] Other 10-02-2023 10:00-0400 Diastolic blood pressure 83 mm[Hg] Robles Ball Other [employer] Other 10-02-2023 10:00-0400 Respiratory rate 12 /min Robles Ball Other [employer] Other 10-02-2023 10:00-0400 Systolic blood pressure 131 mm[Hg] Robles Ball Other [employer] Other 01-22-2023 10:30-0500 Body height 170.18 cm Robles Ball Other [employer] Other 01-22-2023 10:30-0500 Body mass index (BMI) [Ratio] 29.91 kg/m2 Robles Ball Other [employer] Other 01-22-2023 10:30-0500 Body weight 86.64 kg Robles Ball Other [employer] Other 01-22-2023 10:30-0500 Diastolic blood pressure 72 mm[Hg] Robles Ball Other [employer] Other 01-22-2023 10:30-0500 Respiratory rate 16 /min Robles Ball Other [employer] Other 2023 10:30-0500 Systolic blood pressure 122 mm[Hg] Robles Ball Other [employer] Other 09-26-2022 16:10-0400 Body height 170.18 cm Kiya Schaffer Other [employer] Other 09-26-2022 16:10-0400 Body mass index (BMI) [Ratio] 29.29 kg/m2 Kiya Schaffer Other [employer] Other 09-26-2022 16:10-0400 Body temperature 98.8 [degF] Kiya Schaffer Other [employer] Other 09-26-2022 16:10-0400 Body weight 84.82 kg Kiya Schaffer Other [employer] Other 09-26-2022 16:10-0400 Diastolic blood pressure 73 mm[Hg] Kiya Schaffer Other [employer] Other 09-26-2022 16:10-0400 Respiratory rate 18 /min Kiya Schaffer Other [employer] Other 09-26-2022 16:10-0400 SaO2% (BldA) [Mass fraction] 97 % Kiya Schaffer Other [employer] Other 09-26-2022 16:10-0400 Systolic blood pressure 125 mm[Hg] Kiya Schaffer Other [employer] Other 12-27-2021 10:15-0500 Body height 170.18 cm Elsi Mayer Other [employer] Other 12-27-2021 10:15-0500 Body mass index (BMI) [Ratio] 28.19 kg/m2 Elsi Mayer Other [employer] Other 12-27-2021 10:15-0500 Body temperature 100.3 [degF] Elsi Mayer Other [employer] Other 12-27-2021 10:15-0500 Body weight 81.65 kg Elsi Mayer Other [employer] Other 12-27-2021 10:15-0500 Respiratory rate 18 /min Elsi Mayer Other [employer] Other 12-27-2021 10:15-0500 SaO2% (BldA) [Mass fraction] 98 % Elsi Mayer Other [employer] Other Encounters Encounter Date Encounter Type Care Provider Facility Start: 07-17-2025 End: 07-17-2025 flow sheet Ángel Sita DO Work Phone: [facility] Comment on above: 36 weeks gestation o f ([facility]); Third trimester ([facility]); History of miscarriage; Multigravida of advanced maternal age in third trimester ([facility]); Excessive growth affecting management of in third trimester, single or unspecified fetus ([facility]) Start: 07-17-2025 End: 07-17-2025 ambulatory ÁNGEL SITA Not Available Start: 07-17-2025 End: 07-17-2025 Bamboo flowsheet Ángel Sita DO Work Phone: [facility] Start: 07-17-2025 End: 07-17-2025 Bamboo flowsheet Ángel Sita DO Work Phone: [facility] Start: 07-15-2025 End: 07-15-2025 Clinisync Result Encounter Ángel Sita DO Work Phone: [facility] External Department Unsolicited Start: 07-15-2025 End: 07-15-2025 Clinisync Result Encounter Ángel Sita DO Work Phone: [facility] External Department Unsolicited Start: 07-10-2025 End: 07-10-2025 Bamboo flowsheet Ángel Sita DO Work Phone: [facility] Start: 07-10-2025 End: 07-10-2025 Bamboo flowsheet Ángel Sita DO Work Phone: [facility] Start: 07-10-2025 End: 07-10-2025 flow sheet Ángel Sita DO Work Phone: [facility] Comment on above: Third trimester preg lai ([facility]); 35 weeks gestation of ([facility]) Start: 07-10-2025 End: 07-10-2025 ambulatory ÁNGEL SITA [...] sheet Ángel Sita DO Work Phone: [facility] Comment on above: Third trimester preg lai ([facility]); 33 weeks gestation of ([facility]) Start: 06-26-2025 End: 06-26-2025 ambulatory ÁNGEL SITA [...] fetus ([facility]) (Primary Dx); 31 weeks gestation of ([facility]); Third trimester ([facility]); History of miscarriage; Multigravida of advanced maternal age in third trimester ([facility]) Start: 06-12-2025 End: 06-12-2025 ambulatory ÁNGEL SITA [...] Comment on above: Third trimester preg lai ([facility]); 29 weeks gestation of ([facility]); History of miscarriage; Multigravida of advanced maternal age in third trimester ([facility]) Start: 05-30-2025 End: 05-30-2025 ambulatory ÁNGEL SITA [...] Result Encounter Deisy MUNOZ Work Phone: [facility] External Department Unsolicited Start: 03-02-2025 End: 03-03-2025 External Result Encounter Deisy MUNOZ Work Phone: [facility] External Department Unsolicited Start: 03-02-2025 End: 03-02-2025 Patient encounter procedure Deisy MUNOZ Work Phone: [facility] Start: 03-02-2025 End: 03-02-2025 Periodic preventive med est patient 18-39 yrs Deisy MUNOZ Work Phone: [facility] Comment on above: 17 weeks gestation o f ; Second trimester ; Well woman exam with routine gynecological exam; Screening, , for anatomic survey; Exposure to STD; Vaginal discharge; Heartburn; Allergy, sequela Start: 03-02-2025 End: 03-02-2025 ambulatory DEISY VILLAR Not Available Start: 02-02-2025 End: 02-02-2025 Bamboo flowsheet Ángel Sita DO Work Phone: [facility] Start: 02-02-2025 End: 02-02-2025 Bamboo flowsheet Ángel Sita DO Work Phone: [facility] Start: 02-02-2025 End: 02-02-2025 flow sheet Ángel Sita DO Work Phone: [facility] Comment on above: 13 weeks gestation o f ; Second trimester Start: 02-02-2025 End: 02-02-2025 ambulatory ÁNGEL SITA Not Available Start: 01-13-2025 End: 01-13-2025 Clinisync Result Encounter Ángel Sita DO Work Phone: [facility] External Department Unsolicited Start: 01-13-2025 End: [...] 10-18-2024 ambulatory Robles Ball DO Work Phone: [facility] Work Phone: Start: 10-18-2024 End: 10-18-2024 Encounter for general adult medical examination without abnormal findings Robles Ball DO Work Phone: [facility] Start: 10-18-2024 End: 10-18-2024 Patient encounter procedure Robles Ball DO Work Phone: [facility] Work Phone: Start: 10-16-2024 Patient encounter status Jermaine min Ball DO Work Phone: [facility] Start: 10-14-2024 Non-patient / Non-visit Benjam in Ball DO Work Phone: [facility] Work Phone: Start: 09-22-2024 End: 09-22-2024 Departed Referred DO Robles Ball Work Phone: [facility] Start: 09-22-2024 End: 09-22-2024 ambulatory DO Robles Ball Work Phone: [facility] Work Phone: Start: 09-13-2024 End: 09-13-2024 [...] Not Available Start: 08-29-2024 End: 08-29-2024 ambulatory [facility] Work Phone: Start: 08-29-2024 End: 08-29-2024 Patient encounter procedure [facility] Work Phone: Start: 05-03-2024 End: 05-03-[address] [facility] Work Phone: Start: 05-03-2024 End: 05-03-2024 Patient encounter procedure [facility] Work Phone: Start: 2024 End: 2024 ambulatory DO Robles Ball Work Phone: [facility] Work Phone: Start: 2024 End: 2024 Patient encounter procedure DO Robles Charles Work Phone: [facility] Work Phone: Start: 01-07-2024 End: 01-07-2024 Patient encounter procedure DO Robles Charles Work Phone: [facility] [place] Work Phone: Start: 01-07-2024 End: 01-07-2024 ambulatory DO Robles Charles Work Phone: [facility] Work Phone: Start: 01-06-2024 End: 01-06-2024 Office outpatient visit 15 minutes Deisy MUNOZ Work Phone: [facility] Comment on above: Encounter for weight management; Hormone disorder; 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 Start: 10-02-2023 End: 10-02-2023 ambulatory Robles Charles Other [employer] Other Start: 10-02-2023 Encounter for genera l adult medical examination without abnormal findings Robles Charles [facility] Start: 10-02-2023 Periodic preventive med est patient 18-39 yrs Robles Charles [facility] Start: 09-17-2023 End: 09-17-2023 ambulatory MD Liz Conteh Work Phone: [facility] Work Phone: Start: 09-17-2023 End: 09-17-2023 Departed Referred MD Liz Conteh Work Phone: [facility] [facility] Start: 01-22-2023 End: 01-22-2023 ambulatory Robles Charles Other [employer] Other Start: 01-22-2023 Office outpatient vi sit 15 minutes Robles Charles [facility] Start: 01-12-2023 End: 01-12-2023 ambulatory Robles Charles Other [employer] Other Start: 01-12-2023 Telephone encounter Robles Charles [facility] Start: 12-24-2022 End: 12-24-2022 ambulatory Robles Charles Other [employer] Other Start: 12-24-2022 Office outpatient vi sit 15 minutes Robles Charles [facility] Start: 09-30-2022 End: 09-30-2022 ambulatory Kiya Schaffer Other [employer] Other Start: 09-30-2022 Telephone encounter Kiya Schaffer [facility] [address] Start: 09-26-2022 End: 09-26-2022 Departed Referred MD Liz Conteh Work Phone: [facility] [place] Start: 09-26-2022 End: 09-26-2022 ambulatory MD Liz Conteh Work Phone: [facility] Work Phone: Start: 09-26-2022 Office outpatient vi sit 15 minutes Kiya Schaffer [facility] [place] Start: 09-25-2022 ([facility] C Vac) [facility] Co vid Vaccine Subha Dillon [facility] Start: 09-25-2022 End: 09-25-2022 ambulatory MD Liz Conteh Work Phone: [facility] Work Phone: Start: 09-25-2022 End: 09-25-2022 Patient encounter procedure MD Liz Conteh Work Phone: [facility]Covid Vaccine Off Site Start: 08-25-2022 End: 08-25-[address] ÁNGEL BUCKNER Facility:[facility] Start: 08-07-2022 End: 08-07-2022 Departed Referred MD Liz Conteh Work Phone: [facility]-Employee Benefit Screening Start: 06-06-2022 End: 06-07-[address] ROBLES CHARLES Facility:[facility] Start: 01-01-2022 End: 02-02-2022 ambulatory Elsi Mayer Other [employer] Other Start: 01-01-2022 Office outpatient vi sit 5 minutes Elsi Mayer [facility] Start: 12-27-2021 End: 12-27-2021 ambulatory Elsi Mayer Other [employer] Other Start: 12-27-2021 Office outpatient vi sit 15 minutes Elsi Mayer [facility] Start: 08-23-2021 ([facility] C Vac) [facility] Co vid Vaccine Subha Dillon [facility] Procedures Date Procedure Procedure Detail Performing Clinician Start: 07-17-2025 Urnls dip stick/tabl et rgnt non-auto w/o micrscp Ángel Sita DO Work Phone: Start: 07-15-2025 OB BPP W NON-STRESS Ángel Sita DO Work Phone: Start: 07-10-2025 Urnls dip stick/tabl et rgnt non-auto w/o micrscp Ángel Sita DO Work Phone: Start: 07-08-2025 US OB BPP W NON-STRESS Ángel Sita DO Work Phone: Start: 07-01-2025 OB BPP W NON-STRESS Ángel Sita DO [...] 05-11-2025 US OB GROWTH Edson E jackyly [employer] Work Phone: Start: 04-18-2025 ALL CBC WITH [...] 09-13-2029 Screening for malignant neoplasm of cervix [facility] Start: 03-02-2028 Screening for malignant neoplasm of cervix Pap Smear [facility] Start: 09-19-2025 End: 09-19-2025 Patient encounter procedure [facility] Start: 08-03-2025 End: 08-03-2025 Patient encounter procedure 08/03/2025 9:10 AM EDT Routine [facility] [address] [facility] [place] [id number] Ángel Buckner DO [address] [place] [address] [facility] Start: 07-31-2025 Influenza vaccination [facility] Start: 07-24-2025 End: 07-24-2025 Patient encounter procedure 07/24/2025 11:20 AM EDT Routine [facility] [address] [facility] [place] [id number] Ángel Buckner DO [address], [place] [id number] [facility] Start: 07-17-2025 End: 07-17-2025 Patient encounter procedure [facility] Comment on above: Arrived Start: 07-10-2025 End: 07-10-2026 CULTURE, GROUP B STREP WITH SUSCEPTIBLITY CULTURE, GROUP B STREP WITH SUSCEPTIBLITY Lab Routine Third trimester ([facility]) Expected: 07/10/2025, Expires: 07/10/2026 [facility] Work Phone: Comment on above: Expected: 07/10/2025, Expires: Start: 07-10-2025 End: 07-10-2025 Patient encounter procedure [facility] Comment on above: Arrived Start: 06-26-2025 End: 06-26-2025 Patient encounter procedure [facility] Start: 06-26-2025 End: 06-26-2025 Professional / ancillary services management [facility] Start: 06-19-2025 Screening for malignant neoplasm of cervix [facility] Start: 06-12-2025 End: 06-12-2025 Patient encounter procedure [facility] Comment on above: Arrived Start: 06-12-2025 End: 10-13-2025 US for US OB follow up transabdominal approach Imaging Routine Excessive growth affecting management of in third trimester, single or unspecified fetus ([facility]) Expected: 06/12/2025, Expires: 10/13/2025 [facility] Work Phone: Comment on above: Expected: 06/12/2025, Expires: Start: 05-30-2025 End: 11-30-2025 US biophysical profile w non stress test US biophysical profile w non stress test Imaging Routine History of miscarriage Multigravida of advanced maternal age in third trimester ([facility]) Expected: 05/30/2025 (Approximate), Expires: 11/30/2025 [facility] [...] Procedure [facility] [address] [place] [address] [facility] Start: 04-03-2025 End: 04-03-2025 Patient encounter procedure 04/03/2025 9:50 AM EDT Routine [facility] [address] [place] [address] Ángel Buckner, DO [address] [place] [address] [facility] Start: 04-03-2025 End: 04-03-2025 Professional / ancillary services management 04/03/2025 8:00 AM EDT Ancillary Procedure [facility] [address] [place] [address] [facility] Start: 03-30-2025 End: 03-30-2026 CBC panel - Blood by Automated count CBC Lab Routine Second trimester Diabetes mellitus screening Expected: 03/30/2025 (Approximate), Expires: 03/30/2026 [facility] Work Phone: Comment on above: Expected: 03/30/2025 (Approximate), Expi res: 03/30/2026 Start: 03-30-2025 End: 03-30-2026 Measurement of glucose 1 hour after glucose challenge for glucose tolerance test Glucose tolerance, 1 hour Lab Routine Second trimester Diabetes mellitus screening Expected: 03/30/2025 (Approximate), Expires: 03/30/2026 [facility] Comment on above: Expected: 03/30/2025 [...] Routine [facility] [address] [place] [address] Deisy Villar PA [address] [place] [address] Arrived [facility] Comment on above: Arrived Start: 02-02-2025 End: 02-02-2025 Patient encounter procedure [facility] Comment on above: Arrived Start: 01-05-2025 End: 01-05-2025 ambulatory 01/05/2025 1:30 PM EST Initial [facility] [address] [place] [address] [facility] Start: 01-05-2025 End: 01-05-2025 Professional / ancillary services management 01/05/2025 1:00 PM EST Ancillary Procedure [facility] [address] [place] [address] [facility] Start: 09-13-2024 End: 09-13-2024 Patient encounter procedure [facility] Comment on above: Arrived Start: 07-31-2024 Influenza vaccination Influenza Vaccine (#1) [facility] Start: 02-03-2024 End: 02-03-2024 Patient encounter procedure 02/03/2024 1:50 PM EST Office Visit [facility] [address] [phone] Deisy Villar PA [address] [place] [address] [facility] Start: 01-07-2024 Dehydroepiandrosterone sulfate level [facility] Start: 01-07-2024 Sex hormone binding globulin measurement [facility] Start: 01-07-2024 T3 reverse measurement [facility] Start: 01-07-2024 Thyroxine measurement [facility] Start: 01-07-2024 [facility] Start: 01-06-2024 End: 01-06-2025 Anti-thyroglobulin antibody Anti-thyroglobulin antibody Lab Routine Hormone disorder Expected: 01/06/2024 (Approximate), Expires: 01/06/2025 [facility] Comment on above: Expected: 01/06/2024 (Approximate), Expi res: 01/06/2025 Start: 01-06-2024 End: 01-06-2025 C-peptide C-peptide Lab Routine Hormone disorder Expected: 01/06/2024 (Approximate), Expires: 01/06/2025 [facility] Comment on above: Expected: 01/06/2024 (Approximate), Expi res: 01/06/2025 Start: 01-06-2024 End: 01-06-2025 Cortisol free Cortisol, free Lab Routine Hormone disorder Expected: 01/06/2024 (Approximate), Expires: 01/06/2025 [facility] Comment on above: Expected: 01/06/2024 (Approximate), Expi res: 01/06/2025 Start: 01-06-2024 End: 01-06-2025 Glucose [Mass/volume] in Serum or Plasma Glucose, random Lab Routine Hormone disorder Expected: 01/06/2024 (Approximate), Expires: 01/06/2025 [facility] Healthcare Comment on above: Expected: 01/06/2024 [...] 01-06-2025 Thyrotropin [Units/volume] in Serum or Plasma [facility] Comment on above: Ordered: 01/06/2024 Expected: 01/06/2024 (Approximate), Expires: 01/06/2025 Start: 09-17-2023 [facility] Start: 08-07-2022 [facility] Work Phone: Calcitriol [Mass/vol ume] in Serum or Plasma [facility] CHLAMYDIA TRACHOMATI S (GENITO/STI) CHLAMYDIA TRACHOMATIS (GENITO/STI) Lab Routine Exposure to STD Ordered: 03/02/2025 [facility] Comment on above: Ordered: 03/02/2025 Cytology Cervical or vaginal smear or scraping study Pap Smear Pathology and Cytology Routine Well woman exam with routine gynecological exam Ordered: 09/13/2024 [facility] Work Phone: Comment on above: Ordered: 09/13/2024 Cytology Cervical or vaginal smear or scraping study Pap Smear Pathology and Cytology Routine Well woman exam with routine gynecological exam Ordered: 03/02/2025 [facility] Comment on above: Ordered: 03/02/2025 DHEA-sulfate DHEA-sulfate Lab Routine Hormone disorder Ordered: 01/06/2024 [facility] Comment on above: Ordered: 01/06/2024 Estradiol Estradiol Lab Ro utine Hormone disorder Ordered: 01/06/2024 [facility] Work Phone: Comment on above: Ordered: 01/06/2024 Estradiol (E2) [Mass /volume] in Serum or Plasma [facility] Estrone Estrone Lab Rout ine Hormone disorder Ordered: 01/06/2024 [facility] Comment on above: Ordered: 01/06/2024 Estrone (E1) [Mass/v olume] in Serum or Plasma [facility] Ferritin [Mass/volum e] in Serum or Plasma Ferritin Lab Routine Hormone disorder Ordered: 01/06/2024 [facility] Comment on above: Ordered: 01/06/2024 Hemoglobin A1c measurement Hemog lobin A1c Lab Routine Hormone disorder Ordered: 01/06/2024 [facility] Comment on above: Ordered: 01/06/2024 Human papilloma viru s DNA [Presence] in Unspecified specimen by Probe with amplification HPV DNA probe, amplified Microbiology Routine Well woman exam with routine gynecological exam Ordered: 09/13/2024 [facility] Comment on above: Ordered: 09/13/2024 Human papilloma viru s DNA [Presence] in Unspecified specimen by Probe with amplification HPV DNA probe, amplified Microbiology Routine Well woman exam with routine gynecological exam Ordered: 03/02/2025 [facility] Comment on above: Ordered: 03/02/2025 Insulin [Units/volum e] in Serum or Plasma [facility] Neisseria gonorrhoea e DNA [Presence] in Unspecified specimen by ROB with probe detection Neisseria gonorrhea DNA probe, direct Lab Routine Exposure to STD Ordered: 03/02/2025 [facility] Comment on above: Ordered: 03/02/2025 Progesterone Progesterone Lab Routine Hormone disorder Ordered: 01/06/2024 [facility] Comment on above: Ordered: 01/06/2024 Progesterone [Mass/v olume] in Serum or Plasma [facility] Serotonin [Mass/volu me] in Plasma [facility] Sex hormone binding globulin Sex hormone binding globulin Lab Routine Hormone disorder Ordered: 01/06/2024 [facility] Comment on above: Ordered: 01/06/2024 SURESWAB(R) ADVANCED VAGINITIS PLUS, TMA SURESWAB(R) ADVANCED VAGINITIS PLUS, TMA Pathology and Cytology Routine Vaginal discharge Ordered: 03/02/2025 [facility] Work Phone: Comment on above: Ordered: 03/02/2025 T3, reverse T3, reverse Lab Routine Hormone disorder Ordered: 01/06/2024 [facility] Comment on above: Ordered: 01/06/2024 Testosterone Free [Mass/volume] in Serum or Plasma [facility] TESTOSTERONE, FREE TESTOSTERONE, FREE Lab Routine Hormone disorder Ordered: 01/06/2024 [facility] Comment on above: Ordered: 01/06/2024 Testosterone, free, total Testos terone, free, total Lab Routine Hormone disorder Ordered: 01/06/2024 [facility] Comment on above: Ordered: 01/06/2024 Throat culture Throat Culture [facility] Thyroglobulin Ab [Units/volume] in Serum or Plasma [facility] Thyroid peroxidase antibody Thyr oid peroxidase antibody Lab Routine Hormone disorder Ordered: 01/06/2024 [facility] Comment on above: Ordered: 01/06/2024 Thyroperoxidase Ab [Units/volume] in Serum or Plasma [facility] Thyroxine (T4) free [Mass/volume] in Serum or Plasma T4, free Lab Routine Hormone disorder Ordered: 01/06/2024 [facility] Comment on above: Ordered: 01/06/2024 Triiodothyronine (T3 ) Free [Mass/volume] in Serum or Plasma T3, free Lab Routine Hormone disorder Ordered: 01/06/2024 [facility] Comment on above: Ordered: 01/06/2024 Vitamin D 1,25 dihydroxy Vitamin D 1,25 dihydroxy Lab Routine Hormone disorder Ordered: 01/06/2024 [facility] Comment on above: Ordered: 01/06/2024 [facility] Work Phone: Immunizations Immunization Date Immunization Notes Care Provider Fa cili 09-15-2023 influenza, injectabl e, quadrivalent, preservative free [facility] 09-15-2023 influenza virus vaccine, unspecified formulation Ángel Buckner DO Work Phone: [facility] 09-25-2022 COVID-19 Moderna (BIvalent) Kiya Schaffer Other [facility] 08-23-2021 COVID-19 Pfizer Subha Fitt Other [facility] 07-31-2021 COVID-19 Pfizer Subha Fitt Other [facility] 05-19-2021 diphtheria, tetanus toxoids and pertussis vaccine [facility] Payers Date Payer Category Payer Self-pay [id number] 2022 Private Health Insurance [employer] [id number] 2022 Unknown [employer] [id number] 2022-Present [address] [place] [address] [id number] 1990 Unknown [id number] [id number] .593 1990 Unknown [id number] 2.16.840.1.758095.3.579.2 .593 1990 Unknown [id number] 2.16.840.1.636996.3.579.2 .1259 1990 Unknown [id number] 2.16.840.1.790609.3.579.2 .1258 1990 Unknown [id number] 2.16.840.1.691569.3.579.2 .1258 1990 Unknown [id number] 2.16.840.1.807454.3.579.2 .1258 1990 Unknown [id number] 2.16.840.1.266307.3.579.2 .1258 1990 Unknown [id number] 2.16.840.1.002728.3.579.2 .1258 1990 Unknown [id number] 2.16.840.1.901255.3.579.2 .1258 1990 Unknown [id number] 2.16840.1.132076.3.579.2 .1258 1990 Unknown [id number] 2.16840.1.376267.3.579.2 .1258 1990 Unknown [id number] 2.16840.1.715890.3.579.2 .1258 1990 Unknown [id number] 2.16.840.1.376987.3.579.2 .1258 1990 Unknown [id number] 2.16840.1.224433.3.579.2 .1258 1990 Unknown [id number] 2.16.840.1.940195.3.579.2 .1258 1990 Unknown [id number] 2.16840.1.763664.3.579.2 .1259 1959 Unknown [id number] 2.16.840.1.965691.19 Unknown [id number] 2.16.840.1.871848.3.579.2 .531 Unknown [id number] 2.16.840.1.795180.3.579.2 .531 Worker's Compensation [facility] t Ind [id number] Social History Date Type Detail Facility Start: 10-13-2023 End: 09-13-2024 Sex Assigned At [facility] Start: 1990 Sex Assigned At Female F [facility] Start: 08-13-2023 End: 05-03-2024 Tobacco smoking status NHIS Never smoked tobacco [facility] Start: 01-06-2024 End: 07-17-2025 Alcohol intake Current drinker of alcohol (finding) [...] [facility] Start: 10-18-2024 Sex Female (finding) [facility] Start: 11-16-2024 [facility] Clinical Notes 08-23-2021 to 07-17-2025 Mary Lou Kearney LPN - 07/17/2025 2:50 PM Margaret Dewitt NP - 07/10/2025 1:50 PM Joselito Kearney LPN - 06/26/2025 1:10 PM ALEXANDER Abbott - 06/12/2025 2:10 PM EDT Note Date & Type Note Facility 07-17-2025 History of Presen t illness Narrative Reason [...] nursing note reviewed. Exam conducted with a emergency service worker present. Vitals: Estimated body mass index is 36.77 kg/m as calculated from the following: Height as of 01/06/24: 5' 7 . Weight as of this encounter: 234 lb 12.8 oz. BP: 118/70 Patient's last menstrual period was 11/02/2024. ASSESSMENT & PLAN ICD-10-CM 1. 36 weeks gestation of ([facility]) Z3A.36 POCT urinalysis dipstick manually resulted 2. Third trimester ([facility]) Z34.93 POCT urinalysis dipstick manually resulted 3. History of miscarriage Z87.59 4. Multigravida of advanced maternal age in third trimester ([facility]) O09.523 5. Excessive growth affecting management of in third trimester, single or unspecified fetus ([facility]) O36.63X0 Patient presents today for a routine obstetrics appointment. Patient is currently 36w5d with a Estimated Date of Delivery: 08/09/25. Pelvic exam performed and patient is currently 2cm and 70% effaced. Patient to return to clinic in 1 week. Documented by Mary Lou Kearney LPN on behalf of: Ángel Buckner DO documented in this encounter [facility] 07-10-2025 History of Presen t illness Narrative [...] ASSESSMENT & PLAN ICD-10-CM 1. Third trimester ([facility]) Z34.93 CULTURE, GROUP B STREP WITH SUSCEPTIBLITY CULTURE, GROUP B STREP WITH SUSCEPTIBLITY 2. 35 weeks gestation of ([facility]) Z3A.35 POCT urinalysis dipstick manually resulted Return [...] Ángel Buckner DO documented in this encounter [facility] 06-26-2025 History of Presen t illness Narrative [...] nursing note reviewed. Exam conducted with a emergency service worker present. Vitals: Estimated body mass index is 36.2 kg/m as calculated from the following: Height as of 01/06/24: 5' 7 . Weight as of this encounter: 231 lb 1.9 oz. BP: 116/74 Patient's last menstrual period was 11/02/2024. ASSESSMENT & PLAN (Z34.93) Third trimester ([facility]) Plan: POCT urinalysis dipstick manually resulted (Z3A.33) 33 weeks gestation of ([facility]) Plan: POCT urinalysis dipstick manually resulted Patient presents today for a routine obstetrics appointment. Patient is currently 33w5d with a Estimated Date of Delivery: 08/09/25. Patient to return to clinic in 2 weeks for GBS. Documented by Mary Lou Kearney LPN on behalf of: Ángel Buckner DO documented in this encounter [facility] 06-12-2025 History of Presen t illness Narrative [...] in third trimester, single or unspecified fetus ([facility]) O36.63X0 US OB follow up transabdominal approach 2. 31 weeks gestation of ([facility]) Z3A.31 POCT urinalysis dipstick manually resulted 3. Third trimester ([facility]) Z34.93 POCT urinalysis dipstick manually resulted 4. History of miscarriage Z87.59 5. Multigravida of advanced maternal age in third trimester ([facility]) O09.523 Return OB: Patient presents today [...] Ángel Buckner DO documented in this encounter [facility] 05-30-2025 History of Presen t illness Narrative [...] nursing note reviewed. Exam conducted with a emergency service worker present. Vitals: Estimated body mass index is 35.52 kg/m as calculated from the following: Height as of 2/7/24: 5' 7 . Weight as of this encounter: 226 lb 12.8 oz. BP: 120/78 Patient's last menstrual period was 11/02/2024. ASSESSMENT & PLAN ICD-10-CM 1. Third trimester ([facility]) Z34.93 POCT urinalysis dipstick manually resulted 2. 29 weeks gestation of ([facility]) Z3A.29 POCT urinalysis dipstick manually resulted 3. History of miscarriage Z87.59 4. Multigravida of advanced maternal age in third trimester ([facility]) O09.523 Return OB: Patient presents today [...] Ángel Buckner DO documented in this encounter [facility] 05-01-2025 History of Presen t illness Narrative [...] Diagnosis Date Fatigue GARTH (generalized anxiety disorder) ([facility]/HCC) Hyperlipidemia (CMS/HCC) Paronychia, finger HISTORY PAST MEDICAL [...] nursing note reviewed. Exam conducted with a emergency service worker present. Vitals: Estimated body mass index is [...] Edson Dewitt NP documented in this encounter [facility] 03-30-2025 History of Presen t illness Narrative [...] nursing note reviewed. Exam conducted with a emergency service worker present. Vitals: Estimated body mass index is [...] Ángel Buckner DO documented in this encounter [facility] 03-02-2025 History of Presen t illness Narrative [...] nursing note reviewed. Exam conducted with a emergency service worker present. Vitals: Estimated body mass index is [...] without difficulty and patient was given [facility] order to have obtained. Orders Placed [...] of: ALEXANDER Gramajo documented in this encounter [facility] 02-02-2025 History of Presen t illness Narrative [...] Ángel Buckner DO documented in this encounter [facility] 09-13-2024 History of Presen t illness Narrative [...] nursing note reviewed. Exam conducted with a emergency service worker present. Vitals: Estimated body mass index is [...] Ángel Buckner DO documented in this encounter [facility] 01-06-2024 History of Presen t illness Narrative [...] Diagnosis Date Fatigue GARTH (generalized anxiety disorder) ([facility]) Hyperlipidemia (CMS/[facility]) Paronychia, finger Family History Problem Relation Name [...] of: ALEXANDER Gramajo documented in this encounter [facility] 10-02-2023 Evaluation note Encounter Date Diagnosis Assessment [...] prior to bedtime. Weight loss. Pepcid FABY [facility] Other 2023 Evaluation note* Encounter Date Diagnosis Assessment Notes Treatment Notes Treatment Clinical Notes Dec, Nasal turbinate hypertrophy (ICD-10 - J34.3) FLonase, saline NS, Sudafed and avoid use of Afin. Refer to ENT. Dec, Nonallergic vasomotor rhinitis (ICD-10 - J30.0) Prednisone tapered over 8 days. Claritin as needed. [facility] Other 02-13-2023 Evaluation note* Encounter Date Diagnosis Assessment Notes Treatment Notes Treatment Clinical Notes Dec, Acute non-recurrent maxillary sinusitis (ICD-10 - J01.00) [facility] Other 01-25-2023 Evaluation note* Encounter Date Diagnosis Assessment Notes Treatment Notes Treatment Clinical Notes Nov, Acute non-recurrent maxillary sinusitis (ICD-10 - J01.00) Instructed to use Robitussin or Mucinex for cough, saline or Flonase NS for congestion, Tylenol for pain and fever. [facility] Other 10-28-2022 Evaluation note* Encounter Date Diagnosis [...] (suspected) exposure to covid-19 (ICD-10 - Z20.822) [facility] Other 10-27-2022 Evaluation note* Encounter Date Diagnosis Assessment Notes Treatment Notes Treatment Clinical Notes Aug, Encounter for immunization (ICD-10 - Z23) Patient presents today for COVID-19 vaccination booster. Patient pre-vaccination form answers reviewed. Patient denies current illness or allergic reaction to any component of a COVD-19 vaccine. Patient provided with copy of current EUA. [facility] Other 02-02-2022 Evaluation note* Encounter Date Diagnosis [...] Patient care instructions given in writting by [facility] document. Additional time spent conducting pre-visit phone call, screening for symptoms, instructions on social distancing, application and removal of PPE, and cleaning of examination room, equipment and supplies was preformed. Patient education given for testing methodology and results. Patient care instructions given in writting by [facility] document. [employer] Other 01-28-2022 Evaluation note* Encounter Date Diagnosis [...] Patient care instructions given in writting by [facility] document. [employer] Other 09-24-2021 Evaluation note* Encounter Date Diagnosis Assessment Notes Treatment Notes Treatment Clinical Notes Jul, Encounter for immunization (ICD-10 - Z23) Patient presents for COVID-19 vaccination #2. Pre-screening form answers evaluated with patient. Patient denies current illness or allergic reaction to component of COVID-19 vaccine. Patient provided with current copy of [employer]. [employer] Other Evaluation noteNo assessment information available [facility] Work Phone: Evaluation noteNo InformationNort [employer] Other evaluojjzc note* Diagnosis Encounter for weight management Hormone disorder Unspecified endocrine disorder 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 documented [facility] this encounter [facility] Diagnosis Well woman exam with routine gynecological exam Routine gynecological examination documented in this encounter [facility]* Diagnosis Onset Date Resolution Status Admit Date Hypercholesteremia acute Novemb er 2023 11:13am Wellness examination acute Nove mber 2023 11:13am [facility] Work Phone: Evaluation note* Diagnosis [...] in this encounter [facility]* Diagnosis 36 weeks gestation of (HHS-HCC) Third trimester (HHS-HCC) state, incidental History of miscarriage Personal history of other genital system and obstetric disorders Multigravida of advanced maternal age in third trimester (HHS-HCC) Excessive growth affecting management of in third trimester, single or unspecified fetus (HHS-HCC) documented in this encounter [facility] general Narrative - Reported* Type Description Date Medical History Child X2 Natural Surgical History No know Surgical history Hospitalization History see above [employer] Other History general Narrative - Reported* Type Description Date Medical History Child X2 Natural Surgical History No Surgical history information Hospitalization History see above [employer] Other History general Narrative - Reported* Type Description Date Medical History Child X2 Natural Medical History Body mass index (BMI) of 25.0 to 29.9 Medical History Fatigue Medical History Hyperlipidemia, group A Medical History GARTH (generalized anxiety disorde r) Surgical History No know Surgical history Hospitalization History No know Hospitalization history [employer] Other Chief Complaint and Reason for Visit [...] Nasal turbinate hype rtrophy (J34.3) Referral Organization [facility] Nela russo Referring Provider First Name Roblse Referring Provider Last Name Nela Referring Provider Specialty Internal Me dicine Referred Organization [facility] Referred Provider Robles Hernandez Referred Address ,[place], [place],[address] Referred Provider Specialty Otolaryngolo gy Referral Priority Routine Referral Appointment Date 2023-02-04 General Notes Rosangela Cruz 09:25:33 AM >received today, notes locked, insurance card attached, referral faxed Rosangela Cruz 01/29/2023 12:42:25 PM >Shannan at Dr. Rodriges office requested referral be faxed again to [phone]. done! Rosangela Cruz 02/05/2023 02:23:23 PM >notes [...] Conteh MD Primary Care Provider Active Kiya Schafefr NP Attending Provider Active Team Status: Active Member Role Status Dates Robles Charles DO Primary Care Provider Active Team Status: Inactive Member Role Status Dates Deisy Villar PA-C Attending Provider Active Sta rt: January 07, 2024 End: January 07, 2024 Robles Charles DO Primary Care Provider Active Start: January 07, 2024 End: January 07, 2024 Head Charger Relationship Specialty Start Date End Date Robles Charles MD [address] [place] [address] PCP - General Internal Medicine 07/30/23 Team Status: Inactive Member Role Status Dates Robles Charles DO Primary Care Provide r, Attending Provider Active Start: 2024 End: 2024 Team Status: Inactive Member Role Status Dates Robles Charles DO Primary Care Provider Active Start: May 03, 2024 End: May 03, 2024 Caro Chacon APRN [employer] OPERATOR-C Attending Provider Act alex Start: May 03, 2024 End: May 03, 2024 Team Status: Inactive Member Role Status Dates Robles Charles DO Primary Care Provide r, Attending Provider Active Start: August 29, 2024 End: August 29, 2024 Head Charger Relationship Specialty Start Date End Date Robles Charles MD [address] [place] [address] PCP - General Internal Medicine 07/30/23 Deisy Villar PA [address] [place] [address] [place] [address] PCP - Medical [place] [employer] 11/30/23 11/29/99 Head Charger Relationship Specialty Start Date End Date Robles Charles MD [address] [place] [address] PCP - General Internal Medicine 07/30/23 Deisy Villar PA [address] [place] [address] [place] [address] PCP - Medical [place] [employer] 11/30/23 11/29/99 Head Charger Relationship Specialty Start Date End Date Robles Charles MD [address] [facility] [place] [address] PCP - General Internal Medicine 07/30/23 Deisy Villar PA [address] [place], [place] [address] [address] PCP - Medical [employer] 11/30/23 11/29/99 Team Status: Inactive Member Role Status Dates Robles Charles , DO Primary Care Provider Active Start: September [...] October 18, 2024 End: October 18, 2024 Head Charger Relationship Specialty Start Date End Date Robles Charles MD [address] [facility] [place] [address] PCP - General Internal Medicine 07/30/23 Deisy Villar PA [address] [place], [place] [address] [address] PCP - Medical [employer] 11/30/23 11/29/99 Head Charger Relationship Specialty Start Date End Date Robles Charles MD [address] [facility] [place] [address] PCP - General Internal Medicine 07/30/23 Deisy Villar PA [facility] [place] [address] PCP - Medical [place] [employer] 11/30/23 11/29/99 Head Charger Relationship Specialty [place] [address] [place] [address] [place] [address] PCP - General Internal Medicine 07/30/23 Deisy Villar PA [address] [place], [place] [address] [address] PCP - Medical [place] [employer] 11/30/23 11/29/99 Head Charger Relationship Specialty [place] [address] [place], [place] [address] [address] PCP - General Internal Medicine 07/30/23 Deisy Villar PA [address] [place] [address] [place] [address] PCP - Medical [place] [employer] 11/30/23 11/29/99 Head Charger Relationship Specialty Start Date End Date Robles Charles MD PCP - General Internal Medicine 07/30/23 Deisy Villar PA [address] [place], [place] [address] [address] PCP - Medical [place] [employer] 11/30/23 11/29/99 Head Charger Relationship Specialty Start Date End Date Robles Charles DO PCP - General Internal Medicine 07/30/23 Deisy Villar PA [address] [place] [address] PCP - Medical [place] [employer] 11/30/23 11/29/99 Head Charger Relationship Specialty Start Date End Date Robles Charles DO [address] [facility] [place] [address] PCP - General Internal Medicine 07/30/23 Deisy Villar PA [address] [place], [place] [address] PCP - Medical [place] [employer] 11/30/23 11/29/99 Head Charger Relationship Specialty Start Date End Date Robles Charles DO [address] [place] [address] PCP - General Internal Medicine 07/30/23 Deisy Villar PA [address] [employer] [place], [facility]11 PCP - Medical [place] [employer] 11/30/23 11/29/99 Head Charger Relationship Specialty Start Date End Date Robles Charles DO [address] [facility] [place] [address] PCP - General Internal Medicine 07/30/23 Deisy Villar PA [address] [place], [facility]11 PCP - Medical [place] [employer] 11/30/23 11/29/99 Head Charger Relationship Specialty Start Date End Date Robles Charles DO [address] [place] [address] PCP - General Internal Medicine 07/30/23 Deisy Villar PA [address] [place], [place] [address] PCP - Medical [place] [employer] 11/30/23 11/29/99 Head Charger Relationship Specialty Start Date End Date Robles Charles DO [address] [place] [facility] [address] PCP - General Internal Medicine 07/30/23 Deisy Villar PA [facility] Radha [place], [facility]11 PCP - Medical [place] [employer] 11/30/23 11/29/99 Head Charger Relationship Specialty Start Date End Date Robles Charles DO [address] [place] [address] PCP - General Internal Medicine 07/30/23 Deisy Villar PA [address] [place] [address] Tosin [place], [place] [address] PCP - Medical [place] [employer] 11/30/23 11/29/99 Head Charger Relationship Specialty Start Date End Date Robles Charles DO [address] [place] [address] PCP - General Internal Medicine 07/30/23 Deisy Villar PA [address] [place], [place] [address]justus Ram[place], [facility]11 PCP - Medical [place] [employer] 11/30/23 11/29/99 Head Charger Relationship Specialty Start Date End Date Robles Charles DO [address] [place] [facility] [address] PCP - General Internal Medicine 07/30/23 Deisy Villar PA [address] [place], [place] [address] [address] PCP - Medical [place] [employer] 11/30/23 11/29/99 Goals (unrecognized section and content) Goals may be documented in a n alternate section INFORMATION SOURCE (unrecogn ized section and content) DATE CREATED AUTHOR 09/02/2022 [facility] DATE CREATED AUTHOR AUTHOR'S ORGANIZ ATION 09/23/2024 [facility] DATE CREATED AUTHOR AUTHOR'S ORGANIZ ATION 07/18/2025 [facility] Special[facility] FOR RECORDS PERTAINING TO PATIENTS WHO ARE [...] BE BASED ON THE PRIMARY CLINICAL RECORDS. [facility] [employer] provides no warranty or guarantee of the accuracy or completeness of information in this document.
[2025-07-22 08:38] VITALS: BP 127/72; PULSE 82
== END 2025-07-22 09:17 | disposition home or self-care (01) ==
LOC: US 08:01 → FBC 08:05
PROVIDERS: PCP Internal Medicine; Visit Provider Obstetrics & Gynecology
DX: O09.523 Supervision of elderly multigravida, third trimester (principal); Z3A.37 37 weeks gestation of pregnancy; Z87.59 Personal history of other complications of pregnancy, childbirth and the puerperium
CPT/HCPCS: 76818

== ENCOUNTER 2025-07-29 07:49 | Outpatient (OUT) | payer OTHER, SELFPAY ==
--- OUTSIDE RECORDS SUMMARY | 2025-07-17 14:50 | XMS_ITS | Encounter Summary ---
Author Organization [facility] Address [address] [place] [address] Care Team Providers Care Natural Resources Faculty Member Name Role Phone Robles Charles DO Primary Care Provider [phone] Deisy Haji Unavailable Reason for Visit * Reason Comments Routine Visit Encounter Details Date Type Department Care Team (Late st Contact Info) Description 07/17/2025 2:50 PM EDT Routine NOMSheree [place] OBGYN [address] [facility] [address] Ángel Buckner DO [address] [facility] [place] [address] 36 weeks gestation of ([facility]); Third trimester ([facility]); History of miscarriage; Multigravida of advanced maternal age in third trimester ([facility]); Excessive growth affecting management of in third trimester, single or unspecified fetus ([facility]) Social History Tobacco Use Types Packs/Day Years [...] Sign Reading Time Taken Comments Blood Pressure 118/70 07/17/2025 2:59 PM EDT Pulse - - Temperature - - Respiratory Rate - - Oxygen Saturation - - Inhaled Oxygen Concentration - - Weight 107 kg (234 lb 12.8 oz) 07/17/2025 2:59 P M EDT Height - - Body Mass Index 36.77 01/06/2024 2:20 PM EST documented in this encounter Progress Notes * Mary Lou Kearney LPN - 07/17/2025 2:50 PM EDT Reason for Appointment: Patient ID: [...] appearance. She is well-developed. Genitourinary: Vulva normal. Cardiovascular: Rate and Rhythm: Normal rate and [...] nursing note reviewed. Exam conducted with a temporary help agency referral clerk present. Vitals: Estimated body mass index is 36.77 kg/m?? as calculated from the following: Height as of 01/06/24: 5' 7 . Weight as of this encounter: 234 lb 12.8 oz. BP: 118/70 Patient's last menstrual period was 11/02/2024. ASSESSMENT & PLAN ICD-10-CM 1. 36 weeks gestation of ([facility]) Z3A.36 POCT urinalysis dipstick manually resulted 2. Third trimester ([facility]) Z34.93 POCT urinalysis dipstick manually resulted 3. History of miscarriage Z87.59 4. Multigravida of advanced maternal age in third trimester ([facility]) O09.523 5. Excessive growth affecting management of in third trimester, single or unspecified fetus ([facility]) O36.63X0 Patient presents today for a routine obstetrics appointment. Patient is currently 36w5d with a Estimated Date of Delivery: 08/09/25. Pelvic exam performed and patient is currently 2cm and 70%effaced. Patient to return to clinic in 1 week. Documented by Mary Lou Kearney LPN on behalf of: Ángel Buckner DO documented in this encounter Plan of Treatment Upcoming Encounters Date Type Department Care Team (Late st Contact Info) Description 08/03/2025 9:10 AM EDT Routine [facility]OMSheree [facility] [address] [facility] [address] Ángel Buckner, DO [address] [place] [address] 08/07/2025 3:00 PM EDT Routine HERBIE CARRASQUILLO [address] [facility] [place] [phone] Ángel Buckner, DO [address] [place] [address] 09/19/2025 8:30 AM EDT Office Visit HERBIE CARRASQUILLO [facility] [place] [address] Ángel Buckner, DO [address] [facility] [place] [address] documented as of this encounter Procedures Procedure Name Priority Date/Time Associated Diagnosis Comments POCT URINALYSIS DIPSTICK Routine 07/17/2025 3:05 PM EDT 36 weeks gestation of ([facility]) Third trimester ([facility]) documented in this encounter Results * (ABNORMAL) POCT urinalysis dipstick manually resulted (07/17/2025 3:05 PM EDT) Color, UA Yellow Clarity, UA [...] 1.0 0.2 - 12 mg/dL Leukocytes, UA Positive Negative - 500+++ Jason/mcL Comment:2+ Nitrite, UA Negative Negative - Positive Urine 07/17/2025 3:05 PM EDT Ángel Buckner DO POINT OF CARE TEST ENTER/EDIT OR DERABLES Final Result documented in this encounter Visit Diagnoses Diagnosis 36 weeks gestation of ([facility]) Third trimester ([facility] state, incidental History of miscarriage Personal history of other genital system and obstetric disorders Multigravida of advanced maternal age in third trimester ([facility]) Excessive growth affecting management of in third trimester, single or unspecified fetus ([facility]) documented in this encounter Care Teams Natural Resources Faculty Member Relationship Specialty Start Date End Date Robles Charles DO [address] [facility] [place] [address] PCP - General Internal Medicine 07/30/23 Deisy Haji PA [address] [place] [address] [place] [address] PCP - Medical [place] [employer] 11/30/23 11/29/99 documented as of this encounter
--- OUTSIDE RECORDS SUMMARY | 2025-07-24 11:20 | XMS_ITS | Encounter Summary ---
Author Organization [facility] Address [address] [place] [address] Care Team Providers Care Project Manager/Team Coach Name Role Phone Robles Charles DO Primary Care Provider [phone] Deisy Haji Unavailable Reason for Visit * Reason Comments Routine Visit Encounter Details Date Type Department Care Team (Late st Contact Info) Description 07/24/2025 11:20 AM EDT Routine NOM[facility]ree Kaur OBGYN [address] [facility] [place] [address] Ángel Buckner DO [address] [facility] [address] [place]aur, [facility] [address] Third trimester ([facility]); 37 weeks gestation of ([facility]) Social History Tobacco Use Types [...] Reading Time Taken Comments Blood Pressure 118/74 07/24/2025 11:34 AM EDT Pulse - - Temperature - - Respiratory Rate - - Oxygen Saturation - - Inhaled Oxygen Concentration - - Weight 106 kg (233 lb 8 oz) 07/24/2025 11:34 AM EDT Height - - Body Mass Index 36.57 01/06/2024 2:20 PM EST documented in this encounter Progress Notes * Jayda Dewitt NP - 07/24/2025 11:20 AM EDT Reason for Appointment: Patient ID: [...] nursing note reviewed. Exam conducted with a head transfer clerk present. Vitals: Estimated body mass index is 36.57 kg/m?? as calculated from the following: Height as of 01/06/24: 5' 7 . Weight as of this encounter: 233 lb 8 oz. BP: 118/74 Patient's last menstrual period was 11/02/2024. ASSESSMENT & PLAN ICD-10-CM 1. Third trimester ([facility]) Z34.93 POCT urinalysis dipstick manually resulted 2. 37 weeks gestation of ([facility]) Z3A.37 Return OB: Patient presents today for a routine obstetrics appointment. Patient is currently 37w5d . Patient states she is doing well but has complaints of being tired due to current . Patient has verbalizes frequent movement. labor precautions was discussed/given and patient was instructed to perform kick counts three times a day. Orders Placed This Encounter Procedures POCT urinalysis dipstick manually resulted Follow Up: Patient is to return to office in 1 week for routine OB appointment. Documented by Jayda Dewitt NP on behalf of: Ángel Buckner DO documented in this encounter Plan of Treatment Upcoming Encounters Date Type Department Care Team (Late st Contact Info) Description 08/03/2025 9:10 AM EDT Routine [facility] Natasha [facility]BGYN [address] [facility] [place] [address] Ángel Buckner DO [address] [facility] [address] [place], [place] [address] 08/07/2025 3:00 PM EDT Routine HERBIE CARRASQUILLO [address] [place] [address] [place] [address] Ángel Buckner, [address] [place], [place] [address] 09/19/2025 8:30 AM EDT Office Visit HERBIE CARRASQUILLO [address] [place] [address] [place] [address] Ángel Buckner, [address] [place]ash [place], [place] [address] documented as of this encounter Procedures Procedure Name Priority Date/Time Associated Diagnosis Comments POCT URINALYSIS DIPSTICK Routine 07/24/2025 11:38 AM EDT Third trimester ([facility]) documented in this encounter Results * (ABNORMAL) POCT urinalysis dipstick manually resulted (07/24/2025 11:38 AM EDT) Color, UA Christine Clarity, UA Clear Glucose, UA Negative Negative - 2000(110) ++++ mg/dL Bilirubin, UA Negative Negative - 4(70) +++ mg/dL Ketones, UA Negative Negative - 160(16) ++++ mg/dL Spec Grav, UA 1.015 1 - 1.03 Blood, UA Negative Negative - 50 Ezequiel/mcL pH, UA 6.0 5 - 9 Protein, UA Positive Negative - 2000(20) ++++ mg/dL Comment:0.15 g/L Urobilinogen, UA 0.2 0.2 - 12 mg/dL Leukocytes, UA Positive Negative - 500+++ Jason/mcL Comment:1+ Nitrite, UA Negative Negative - Positive Urine 07/24/2025 11:3 8 AM EDT Ángel Buckner DO POINT OF CARE TEST ENTER/EDIT OR DERABLES Final Result documented in this encounter Visit Diagnoses Diagnosis Third trimester ([facility]) state, incidental 37 weeks gestation of ([facility]) documented in this encounter Care Teams Project Manager/Team Coach Relationship Specialty Start Date End Date Robles Charles DO [address] [facility] [place] [address] PCP - General Internal Medicine 07/30/23 Deisy Haji PA [address] [place] [address] [place] [address] PCP - Medical [place] [employer] 11/30/23 11/29/99 documented as of this encounter
--- NOTE | 2025-07-29 | US_ITS ---
[address] [address] Patient Name: PHILLIP HERNANDEZ MRN: [id number] date: 1990 Sex: F Assigned Patient Location: [facility] Current Patient Location: Accession/Order Number: [id number] Exam Date: 07/29/2025 08:02 Report Date: 07/29/2025 11:10 At the request of: LE DELVALLE DO Procedure: US OB BPP w non-stress US OB BPP w non-stress 07/29/2025 8:43 AM SIGNS AND SYMPTOMS: ^ADVANCED MATERNAL AGE O09.523 PROTOCOL: Transabdominal sonographic imaging of the gravid uterus COMPARISON: None FINDINGS: heart rate: 173 bpm Amniotic fluid index: 14.55 cm. The deeper vertical pocket measures 4.61 cm. Estimated gestational age: 38 weeks and 3 days Biophysical profile: breathing movements: 2/2 Gross body movements: 2/2 tone: 2/2 Amniotic fluid volume: 2/2 US/US OB BPP w non-stress IMPRESSION: Biophysical profile: 07/07 Impression dictated by: Roddy Yusuf M.D. 07/29/2025 11:10 AM Dictation Location: [employer] Electronically authenticated by: [id number] Y Date: 07/29/2025 11:10
--- OUTSIDE RECORDS SUMMARY | 2025-07-29 07:51 | XMS_ITS | Encounter Summary ---
Author Organization [facility] Address [address] [place] [address] Care Team Providers Care Crushing Mill Operator Name Role Phone MelvinRobles Primary Care Provider [phone] Deisy Haji Unavailable Encounter Details Date Type Department Care Team (Late Contact Info) Description 08/06/2023 Clinisync Result Encounter [facility] External Department Unsolicited Le Buckner DO [address] [place] [address] Social History Tobacco Use Types Packs/Day [...] AM EDT Routine [facility] [address] [place] [address] Le Buckner DO [address] [place], [place] [address] 08/07/2025 3:00 PM EDT Routine NOMSheree Kaur OBGYN [address] [place] [address] [place] [address] Le Buckner, [address] [facility] [place] [address] 09/19/2025 8:30 AM EDT Office Visit NOMSheree CARRASQUILLO [address] [facility] [place] [address] Le Buckner, [address] [facility] [address] [place], [place] [address] documented as of this encounter Procedures Procedure Name Priority Date/Time Associated Diagnosis Comments US OB TRANSVAGINAL 08/06/2023 4: 44 PM EDT documented in this encounter Results * US OB TRANSVAGINAL (08/06/2023 4:44 PM EDT) Anatomical Region Laterality Modality Other 08/06/2023 4:44 PM EDT Narrative 08/06/2023 4:44 PM EDT The [address] [address] Ultrasound Report Signed Patient: Phillip Hernandez MR#: [id number] : 1990 Acct:[id number] Age/Sex: 33 / F ADM Date: 08/06/23 Loc: US Attending Dr: Le Buckner D.O. Ordering Physician: Le Buckner D.O. Date of Service: 08/06/23 Procedure(s): US OB transvaginal Accession Number(s): [id number] cc: Le Buckner D.O.; Physician,Non-Staff Lauri The [address] [address] Patient Name: PHILLIP HERNANDEZ MRN: [facility]:[id number] date: 1990 Sex: F Assigned Patient Location: US Current Patient Location: US Accession/Order Number: [id number] Exam Date: 08/06/2023 09:32 Report Date: 08/06/2023 [...] M.D. Signed By: 08/06/237 DD/ 43 TD/TT: Dressmaker Or Tailor: Procedure Note Radiology, Radiologist, MD - 08/21/2023 [place] [address] Ultrasound Report Signed Patient: Phillip Hernandez LMR#: [id number] : 1990Acct:[id number] Age/Sex: 33 / FADM Date: 08/06/23 Loc: US Attending Dr: Le Buckner D.O. Ordering Physician: Le Buckner D.O. Date of Service: 08/06/23 Procedure(s): US OB transvaginal Accession Number(s): [id number] cc: Le Buckner D.O.; Physician,Non-Staff Lauri The [address] [address] Patient Name: PHILLIP HERNANDEZ MRN: [id number] date: 1990 Sex: F Assigned Patient Location: US Current Patient Location: US Accession/Order Number: [id number] Exam Date: 08/06/2023 09:32 Report Date: 08/06/2023 [...] Yeung M.D. Signed By:08/06/237 DD/ 43 TD/TT: Dressmaker Or Tailor: us Le Buckner DO [facility] Final Result documented in this encounter Visit Diagnoses Not on filedocumented in this encounter Care Teams Crushing Mill Operator Relationship Specialty Start Date End Date Robles Charles DO [address] [facility] [place] [address] PCP - General Internal Medicine 07/30/23 Deisy Haji PA [address] [place] [address] [place] [address] PCP - Medical [place] [employer] 11/30/23 11/29/99 documented as of this encounter
--- OUTSIDE RECORDS SUMMARY | 2025-07-29 07:51 | XMS_ITS | Encounter Summary ---
Author Organization [facility] Address [address] [place] [address] Care Team Providers Care Corporate Tutor Name Role Phone Melvin Robles Jerome DO Primary Care Provider [phone] Deisy Haji Unavailable Encounter Details Date Type Department Care Team (Late st Contact Info) Description 07/24/2025 Bamboo flowsheet [facility] Natasha OBROSA ISELA [address] [facility] [place] [address] Ángel Buckner DO [address] [facility] [address] Arash [place]aur, [facility]11 Social History Tobacco Use Types Packs/Day [...] Description 08/03/2025 9:10 AM EDT Routine NOMSheree Kaur OBGYN [address] [place] [address] [place] [address] Ángel Buckner, DO [address] [facility] [place] [address] 08/07/2025 3:00 PM EDT Routine NOMSheree FROSTGYManuel [address] [place] [address] Ángel Buckner, DO [address] [place] [address] 09/19/2025 8:30 AM EDT Office Visit NOMSheree CARRASQUILLO [address] [facility] [place] [address] Ángel Buckner, DO [address] [facility] [address] Ar[place], [facility] documented as of this encounter Visit Diagnoses Not on filedocumented in this encounter Care Teams Corporate Tutor Relationship Specialty Start Date End Date Robles Charles DO [address] [facility] [place] [address] PCP - General Internal Medicine 07/30/23 Deisy Haji PA [address] [place] [address] [place] [address] PCP - Medical [place] [employer] 11/30/23 11/29/99 documented as of this encounter
--- OUTSIDE RECORDS SUMMARY | 2025-07-29 07:51 | XMS_ITS | Encounter Summary ---
Author Organization [facility] Address [address] [place] [address] Care Team Providers Care Entertainment Musician Name Role Phone MelvinRobles Primary Care Provider [phone] Deisy Haji Unavailable Encounter Details Date Type Department Care Team (Late st Contact Info) Description 03/09/2025 Orders Only [facility] Silvina CARRASQUILLO [address] [place] [address] Camille Lawrence LPN [address] [place] [id number] Social History Tobacco Use Types Packs/Day Years [...] 08/03/2025 9:10 AM EDT Routine NOMSheree CARRASQUILLO [address] [place] [address] [place] [address] Ángel Buckner, DO [address] [facility] [place] [address] 08/07/2025 3:00 PM EDT Routine NOMSheree CARRASQUILLO [address] [place] [address] [place] [address] Ángel Buckner, DO [address] [place], [place] [address] 09/19/2025 8:30 AM EDT Office Visit HERBIE CARRASQUILLO [address] [place] [address] [place] [address] Ángel Buckner, DO [address] [facility] [address] Arash [place]aur, [facility] documented as of this encounter Procedures Procedure Name Priority Date/Time Associated Diagnosis Comments PAP SMEAR Routine 03/02/2025 12:00 AM EDT documented in this encounter Results * Pap Smear (03/02/2025 12:00 AM EDT) Swab Cervical swab / Unknown Sita Nurse [facility] Ob LAB CYTOLOGY ORDERABLES Final Result EXTERNAL LAB documented in this encounter Visit Diagnoses Not on filedocumented in this encounter Care Teams Entertainment Musician Relationship Specialty Start Date End Date Robles Charles DO [address] [place] [address] PCP - General Internal Medicine 07/30/23 Deisy Haji PA [address] [place], [place] [address] PCP - Medical [place] [employer] 11/30/23 11/29/99 documented as of this encounter
--- OUTSIDE RECORDS SUMMARY | 2025-07-29 07:51 | XMS_ITS | Encounter Summary ---
Author Organization [facility] Address [address] [place] [address] Care Team Providers Care Wet Suit Gluer Name Role Phone MelvinRobles Justus CRESPO Primary Care Provider [phone] Deisy Haji Unavailable Encounter Details Date Type Department Care Team (Late Contact Info) Description 02/02/2025 Abstract [facility] Natasha CARRASQUILLO [address] [facility] [place] [address] Ángel Buckner DO [address] [facility] [address] Arash [place]aur, [facility] Social History Tobacco Use Types Packs/Day Years [...] Description 08/03/2025 9:10 AM EDT Routine NOMSheree FROSTGYN [address] [place] [address] [place] [phone] Ángel Buckner, DO [address] [facility] [place] [address] 08/07/2025 3:00 PM EDT Routine NOMSheree Kaur OBGYN [address] [place] [address] [place] [address] Ángel Buckner, DO [address] [place] [address] 09/19/2025 8:30 AM EDT Office Visit NOMSheree CARRASQUILLO [address] [place] [address] [place] [address] Ángel Buckner, DO [address] [facility] [place] [address] documented as of this encounter Visit Diagnoses Not on filedocumented in this encounter Care Teams Wet Suit Gluer Relationship Specialty Start Date End Date Robles Charles DO [address] [facility] [place] [address] PCP - General Internal Medicine 07/30/23 Deisy Haji PA [address] [place] [address] [place] [address] PCP - Medical [place] [employer] 11/30/23 11/29/99 documented as of this encounter
--- OUTSIDE RECORDS SUMMARY | 2025-07-29 07:51 | XMS_ITS | Clinical Summary ---
Author Organization [facility] Address [address] [place] [address] Care Team Providers Care Manufacturing Executive Name Role Phone MelvinRobles Justus CRESPO Primary Care Provider Deisy Haji Unavailable Allergies Active Allergy Reactions [...] Encounters Date Type Department Care Team Description 07/24/2025 11:20 AM EDT Routine [facility]OM[facility] Natasha CARRASQUILLO [facility] [place] [address] Le Buckner DO Third trimester ([facility]); 37 weeks gestation of ([facility]) 07/24/2025 Bamboo flowsheet [facility] [place] [address] Le Buckner, DO 07/22/2025 Clinisync Result Encounter NOMS External Department Unsolicited Le Buckner, DO 07/17/2025 2:50 PM [place] [address] Le Buckner, DO 36 weeks gestation of ([facility]); Third trimester ([facility]); History of miscarriage; Multigravida of advanced maternal age in third trimester ([facility]); Excessive growth affecting management of in third trimester, single or unspecified fetus ([facility]) 07/17/2025 [place] [address] Le Buckner, DO 07/15/2025 Clinisync Result Encounter NOMS External Department Unsolicited Le Buckner, DO 07/10/2025 1:50 PM [place] [address] Le Buckner, DO Third trimester ([facility]); 35 weeks gestation of ([facility]) 07/10/2025 Bamboo flowsheet [facility]OMS Natasha CARRASQUILLO [address] [place] [address] eL Buckner, DO 07/08/2025 Clinisync Result Encounter NOMS External Department Unsolicited Le Buckner, DO 07/01/2025 Clinisync Result Encounter NOMS External Department Unsolicited Le Buckner, DO 06/26/2025 1:10 PM [place] [address] Le Buckner, DO Third trimester ([facility]); 33 weeks gestation of ([facility]) 06/26/2025 11:30 AM EDT Ancillary Procedure [facility] [place] [address] Excessive growth affecting management of in third trimester, single or unspecified fetus ([facility]) 06/24/2025 Clinisync Result Encounter NOMS External Department Unsolicited Le Buckner, 06/17/2025 Clinisync Result Encounter NOMS External Department Unsolicited Le Buckner, DO 06/12/2025 2:10 PM EDT Routine [facility] [place] [address] Le Buckner, DO Excessive growth affecting management of in third trimester, single or unspecified fetus ([facility]) (Primary Dx); 31 weeks gestation of ([facility]); Third trimester ([facility]); History of miscarriage; Multigravida of advanced maternal age in third trimester ([facility]) 06/12/2025 Bamboo flowsheet NOMS Natasha Dean [facility] [address] Le Buckner, DO 06/10/2025 Clinisync Result Encounter NOMS External Department Unsolicited Le Buckner, DO 06/03/2025 Clinisync Result Encounter NOMS External Department Unsolicited Le Buckner, DO 05/30/2025 8:50 AM EDT Routine [facility]OM[facility] [place] [address] Le Buckner, Third trimester ([facility]); 29 weeks gestation of ([facility]); History of miscarriage; Multigravida of advanced maternal age in third trimester ([facility]) 05/30/2025 Bamboo flowsheet NOMSheree [place] [address] Le Buckner, DO 05/11/2025 Clinisync Result Encounter NOMS External Department Unsolicited Jayda Dewitt NP 05/01/2025 8:30 AM EDT Routine NOMS Natasha CARRASQUILLO [address] [facility] [address] Deisy Haji PA size inconsistent with dates ([facility]) (Primary Dx); Second trimester ([facility]); 25 weeks gestation of ([facility]) 05/01/2025 Bamboo flowsheet NOMS Natasha CARRASQUILLO [address] [place] [address] Deisy Haji PA from Last 3 [...] 8 oz) 07/24/2025 11:34 AM EDT Height 170.2 cm (5' 7 ) 01/06/2024 2:20 PM EST Body Mass Index 36.57 01/06/2024 2:20 PM EST Plan of Treatment Upcoming Encounters Date Type Department Care Team (Late st Contact Info) Description 08/03/2025 9:10 AM EDT Routine [facility]OM[facility] Natasha FROSTGYN [address] [place] [address] [place] [phone] Le Buckner, DO [address] [facility] [place] [address] 08/07/2025 3:00 PM EDT Routine NOMSheree CARRASQUILLO [address] [place] [address] [place] [phone] Le Buckner, DO [address] [facility] [place] [address] 09/19/2025 8:30 AM EDT Office Visit HERBIE CARRASQUILLO [address] [place] [address] [place] [phone] Le Buckner, DO [address] [facility] [place] [address] Health Maintenance Due Date Last Done Comments Influenza Vaccine (#1) 2025 09/15/2023 Pap Smear 03/02/2028 03/02/2025, 09/13/2024, 05/31 Cervical Cancer Screening 09/13/2029 HPV/Cotest 09/13/2029 Procedures Procedure Name Priority Date/Time Associated Diagnosis Comments POCT URINALYSIS DIPSTICK Routine 07/24/2025 11:38 AM EDT Third trimester ([facility]) US OB BPP W NON-STRESS 07/22/2025 5:02 PM EDT POCT URINALYSIS DIPSTICK Routine 07/17/2025 3:05 PM EDT 36 weeks gestation of ([facility]) Third trimester ([facility]) US OB BPP W NON-STRESS 07/15/2025 9:18 AM EDT POCT URINALYSIS DIPSTICK Routine 07/10/2025 2:03 PM EDT 35 weeks gestation of ([facility]) CULTURE, GROUP B STREP WITH SUSCEPTIBLITY Routine 07/10/2025 1:45 PM EDT Third trimester ([facility]) US OB BPP W NON-STRESS 07/08/2025 9:19 AM EDT US OB BPP W NON-STRESS 07/01/2025 8:07 PM EDT POCT URINALYSIS DIPSTICK Routine 06/26/2025 1:26 PM EDT Third trimester ([facility]) 33 weeks gestation of ([facility]) US OB FOLLOW UP TRANSABDOMINAL APPROACH Routine 06/26/2025 11:22 AM EDT Excessive growth affecting management of in third trimester, single or unspecified fetus ([facility]) US OB BPP W NON-STRESS 06/24/2025 9:34 AM EDT US OB BPP W NON-STRESS 06/17/2025 9:20 AM EDT US OB BPP W NON-STRESS 06/10/2025 6:38 PM EDT US OB BPP W NON-STRESS 06/03/2025 2:23 PM EDT POCT URINALYSIS DIPSTICK Routine 05/30/2025 9:17 AM EDT Third trimester ([facility]) 29 weeks gestation of ([facility]) US OB GROWTH 05/11/2025 2:40 PM EDT PAP SMEAR Routine 03/02/2025 12:00 AM EDT from Last 3 Months or Most Recently Relevant to Health Maintenance Results * (ABNORMAL) POCT urinalysis dipstick manually resulted (07/24/2025 11:38 AM EDT) Only the most recent of5 resultswithin the time period is included. Color, UA Christine Clarity, UA Clear Glucose, [...] Positive Urine 07/24/2025 11:3 8 AM EDT us Le Buckner DO POINT OF CARE TEST ENTER/EDIT OR DERABLES Final Result * US OB BPP W NON-STRESS (07/22/2025 5:02 PM EDT) Only the most recent of8 resultswithin the time period is included. Anatomical Region Laterality Modality Other 07/22/2025 5:02 PM EDT Narrative 07/22/2025 8:16 PM EDT The [address] [address] Ultrasound Report Signed Patient: PHILLIP REYES MR#: [id number] : 1990 Acct:[id number] Age/Sex: 35 / F ADM Date: 07/22/25 Loc: US Attending Dr: Le Buckner D.O. Ordering Physician: Le Buckner D.O. Date of Service: 07/22/25 Procedure(s): US OB BPP w non-stress Accession Number(s): [id number] cc: Robles Charles D.O.; Le Buckner D.O. [address] [address] Patient Name: PHILLIP REYES MRN: [id number] date: 1990 Sex: F Assigned Patient Location: US Current Patient Location: Accession/Order Number: [id number] Exam Date: 07/22/2025 07:58 Report Date: 07/22/2025 17:02 At the request of: LE BUCKNER DO Procedure: US OB BPP w non-stress US OB BPP w non-stress 07/22/2025 8:39 AM SIGNS AND SYMPTOMS: Multigravida of advanced maternal age PROTOCOL: Transabdominal sonographic imaging of the gravid uterus COMPARISON: None FINDINGS: heart rate: 132 bpm Amniotic fluid index: 15.5 cm. The deepest vertical pocket measures 5.95 cm. Estimated gestational age: 37 weeks and 3 days. Biophysical profile: breathing movements: 2/2 Gross body movements: 2/2 tone: 2/2 Amniotic fluid volume: 2/2 US/US OB BPP w non-stress IMPRESSION: Biophysical profile score: 8/8 Impression dictated by: Roddy uYsuf M.D. 07/22/2025 5:02 PM Dictation Location: [place] [address] Electronically authenticated by: [id number] Y Date: 07/22/2025 17:02 Dictated By: Roddy Yusuf M.D. Signed By: 07/22/252015 DD/ 01 TD/TT: Manager Imaging: Procedure Note Radiology, Radiologist, MD - 07/22/2025 [place] [address] Ultrasound Report Signed Patient: PHILLIP REYES LMR#: [id number] : 1990Acct:[id number] Age/Sex: 35 / FADM Date: 07/22/25 Loc: US Attending Dr: Le Buckner D.O. Ordering Physician: Le Buckner D.O. Date of Service: 07/22/25 Procedure(s): US OB BPP w non-stress Accession Number(s): [id number] cc: Robles Charles D.O.; Le Buckner D.O. [place] [address] Patient Name: PHILLIP REYES MRN: [facility]:[id number] date: 1990 Sex: F Assigned Patient Location: US Current Patient Location: Accession/Order Number: [id number] Exam Date: 07/22/2025 07:58 Report Date: 07/22/2025 17:02 At the request of: LE BUCKNER DO Procedure: US OB BPP w non-stress US OB BPP w non-stress 07/22/2025 8:39 AM SIGNS AND SYMPTOMS: Multigravida of advanced maternal age PROTOCOL: Transabdominal sonographic imaging of the gravid uterus COMPARISON: None FINDINGS: heart rate: 132 bpm Amniotic fluid index: 15.5 cm. The deepest vertical pocket measures 5.95cm. Estimated gestational age: 37 weeks and 3 days. Biophysical profile: breathing movements: 2/2 Gross body movements: 2/2 tone: 2/2 Amniotic fluid volume: 2/2 US/US OB BPP w non-stress IMPRESSION: Biophysical profile score: 8/8 Impression dictated by: Roddy Yusuf M.D. 07/22/2025 5:02 PM Dictation Location: [place] [address] Electronically authenticated by: [id number] Y Date: 7:02 Dictated By: Roddy Yusuf M.D. Signed By:07/22/252015 DD/ 01 TD/TT: Manager Imaging: us Le Buckner DO [facility] Final Result * CULTURE, GROUP B STREP WITH SUSCEPTIBLITY (07/10/2025 1:45 PM EDT) Swab 07/10/2025 1:45 PM EDT us Le Buckner DO LAB BLOOD ORDERABLES Final Resul t [...] II, MD, PHD at 26-Jun-2025 11:42:39 PM [facility] Procedure Note Evelyne Ramsey MD - [...] signed by EVELYNE RAMSEY II, MD, PHD 11:42:39 PM [facility] us Deisy MUNOZ IMG OB US PROCEDURES Final Resul t * US OB GROWTH (05/11/2025 2:40 PM EDT) Anatomical Region Laterality Modality Other 05/11/2025 2:40 PM EDT Narrative 05/11/2025 2:42 [place] [address] Ultrasound Report Signed Patient: PHILLIP REYES MR#: [id number] : 1990 Acct:[id number] Age/Sex: 35 / F ADM Date: 05/11/25 Loc: US Attending Dr: Jayda Dewitt Ordering Physician: Jayda Dewitt Date of Service: 05/11/25 Procedure(s): US OB growth Accession Number(s): [id number] cc: Robles Charles D.O.; Jayda Dewitt [address] [address] Patient Name: PHILLIP REYES MRN: [id number] date: 1990 Sex: F Assigned Patient Location: US Current Patient Location: US Accession/Order Number: [id number] Exam Date: 05/11/2025 14:38 Report Date: 05/11/2025 [...] Jr., D.O. 05/11/2025 2:40 PM Dictation Location: [place] [address] Electronically authenticated by: [id number] Y Date: 05/11/2025 14:40 Dictated By: Justin Mack M.D. Signed By: 05/11/25 1442 DD/ 1440 TD/TT: Manager Imaging: Procedure Note Radiology, Radiologist, MD - 05/11/2025 [place] [address] Ultrasound Report Signed Patient: PHILLIP REYES LMR#: [id number] : 1990Acct:[id number] Age/Sex: 35 / FADM Date: 05/11/25 Loc: US Attending Dr: Jayda Dewitt Ordering Physician: Jayda Dewitt Date of Service: 05/11/25 Procedure(s): US OB growth Accession Number(s): [id number] cc: Robles Charles D.O.; Jayda Dewitt The [address] [address] Patient Name: PHILLIP REYES MRN: [id number] date: 1990 Sex: F Assigned Patient Location: US Current Patient Location: US Accession/Order Number: [id number] Exam Date: 05/11/2025 14:38 Report Date: 05/11/2025 14:40 At the request of: JAYDA DEWITT Procedure: US OB growth Growth ultrasound. Reason for exam: size. COMPARISON: Ultrasound 03/20/2025. TECHNIQUE: Transabdominal imaging of the gravid uterus was obtained. FINDINGS: Single live intrauterine 28 weeks 1 day by anatomic measurements. Appropriate growth by dating. Estimated weight wi4373 g which is the 80th percentile. heart rate 1 54 bpm. positionis cephalic at time of scanning. MARTY is normal at 13.5 cm. US/US OB growth IMPRESSION: Single live intrauterine 28 weeks 1 day by anatomic measurements. Appropriate growth. Impression dictated by: Justin Mack Jr., D.O. 05/11/2025 2:40 PM Dictation Location: [place] [address] Electronically authenticated by: [id number] Y Date: 4:40 Dictated By: Justin Mack M.D. Signed By:05/11/25 1442 DD/ 1440 TD/TT: Manager Imaging: Jayda Dewitt SENIOR FACILITIES MANAGER [facility] Final Resul t * Pap Smear (03/02/2025 12:00 AM EDT) Swab Cervical swab / Unknown Sita Nurse [facility] Ob LAB CYTOLOGY ORDERABLES Final Result EXTERNAL LAB from Last 3 Months or Most Recently Relevant to Health Maintenance Insurance [address] [place] [address] [employer] Care Teams Manufacturing Executive Relationship Specialty Start Date End Date Robles Charles DO [address] [facility] [place] [address] PCP - General Internal Medicine 07/30/23 Deisy Haji PA [address] [facility] [place] [address] PCP - Medical [place] [employer] 11/30/23 11/29/99
--- OUTSIDE RECORDS SUMMARY | 2025-07-29 07:51 | XMS_ITS | Encounter Summary ---
Author Organization [facility] Address [address] [place] [address] Care Team Providers Care Home Assessment Nurse Name Role Phone MelvinRobles Justus CRESPO Primary Care Provider [phone] Deisy Haji Unavailable Encounter Details Date Type Department Care Team (Late st Contact Info) Description 07/22/2025 Clinisync Result Encounter NOMS External Department Unsolicited Le Buckner DO [address] [facility] [place] [address] Social History Tobacco Use Types [...] 9:10 AM EDT Routine NOMS Natasha OBGYN [address] [place] [address] [place] [address] Le Buckner, DO [address] [facility] [place] [address] 08/07/2025 3:00 PM EDT Routine NOMS Natasha CARRASQUILLO [address] [place] [address] [place] [phone] Le Buckner, DO [address] [facility] [place] [address] 09/19/2025 8:30 AM EDT Office Visit NOMSheree CARRASQUILLO [address] [place] [address] [place] [phone] Le Buckner, DO [address] [facility] [place] [address] documented as of this encounter Procedures Procedure Name Priority Date/Time Associated Diagnosis Comments US OB BPP W NON-STRESS 07/22/2025 5:02 PM EDT documented in this encounter Results * US OB BPP W NON-STRESS (07/22/2025 5:02 PM EDT) Anatomical Region Laterality Modality Other 07/22/2025 5:02 PM EDT Narrative 07/22/2025 8:16 PM EDT The [address] [address] Ultrasound Report Signed Patient: PHILLIP HERNANDEZ MR#: [id number] : 1990 Acct:[id number] Age/Sex: 35 / F ADM Date: 07/22/25 Loc: US Attending Dr: Le Buckner D.O. Ordering Physician: Le Buckner D.O. Date of Service: 07/22/25 Procedure(s): US OB BPP w non-stress Accession Number(s): [id number] cc: Robles Charles D.O.; Le Buckner D.O. The [place] [id number] Patient Name: PHILLIP HERNANDEZ MRN: [id number] date: 1990 Sex: F Assigned Patient Location: US Current Patient Location: Accession/Order Number: [id number] Exam Date: 07/22/2025 07:58 Report Date: 07/22/2025 [...] Yusuf M.D. 07/22/2025 5:02 PM Dictation Location: [place] [address] Electronically authenticated by: [id number] Y Date: 07/22/2025 17:02 Dictated By: Roddy Yusuf M.D. Signed By: 07/22/252015 DD/ 01 TD/TT: [facility] Hand: Procedure Note Radiology, Radiologist, MD - 07/22/2025 [place] [address] Ultrasound Report Signed Patient: PHILLIP HERNANDEZ LMR#: [id number] : 1990Acct:[id number] Age/Sex: 35 / FADM Date: 07/22/25 Loc: US Attending Dr: Le Buckner D.O. Ordering Physician: Le Buckner D.O. Date of Service: 07/22/25 Procedure(s): US OB BPP w non-stress Accession Number(s): [id number] cc: Robles Charles D.O.; Le Buckner D.O. [place] [address] [place] [id number] Patient Name: PHILLIP HERNANDEZ MRN: [facility]:[id number] date: 1990 Sex: F Assigned Patient Location: Current Patient Location: Accession/Order Number: [id number] Exam Date: 07/22/2025 07:58 Report Date: 07/22/2025 [...] Yusuf M.D. 07/22/2025 5:02 PM Dictation Location: [place] [address] Electronically authenticated by: [id number] Y Date: 7:02 Dictated By: Roddy Yusuf M.D. Signed By:07/22/252015 DD/ 01 TD/TT: [facility] Hand: Le Buckner DO [facility] Final Result documented in this encounter Visit Diagnoses Not on filedocumented in this encounter Care Teams Home Assessment Nurse Relationship Specialty Start Date End Date Robles Charles DO [address] [place] [phone] ([place]) PCP - General Internal Medicine 07/30/23 Deisy Haji PA [address] [place] [address] [place] [address] PCP - Medical [place] [employer] 11/30/23 11/29/99 documented as of this encounter
--- OUTSIDE RECORDS SUMMARY | 2025-07-29 07:51 | XMS_ITS | Encounter Summary ---
Author Organization [facility] Address [address] [place] [address] Care Team Providers Care Wedding Planner Name Role Phone MelvinRobles Justus CRESPO Primary Care Provider [phone] Deisy Haji Unavailable Encounter Details Date Type Department Care Team (Late st Contact Info) Description 07/15/2025 Clinisync Result Encounter [facility] External Department Unsolicited Le Buckner DO [address] [place] [address] Social History Tobacco Use Types [...] 9:10 AM EDT Routine [facility] [address] [place] [address] [place] [phone] Le Buckner, DO [address] [place] [place] [address] 08/07/2025 3:00 PM EDT Routine [facility] Natasha CARRASQUILLO [address] [place] [address] [place] [phone] Le Buckner, DO [address] [place] [place] [address] 09/19/2025 8:30 AM EDT Office Visit [facility] [address] [place] [address] [place] [phone] Le Buckner, DO [address] [place] [place] [address] documented as of this encounter Procedures Procedure Name Priority Date/Time Associated Diagnosis Comments US OB BPP W NON-STRESS 07/15/2025 9:18 AM EDT documented in this encounter Results * US OB BPP W NON-STRESS (07/15/2025 9:18 AM EDT) Anatomical Region Laterality Modality Other 07/15/2025 9:18 AM EDT Narrative 07/15/2025 9:20 AM EDT The [address] [address] Ultrasound Report Signed Patient: PHILLIP HERNANDEZ MR#: [id number] : 1990 Acct:[id number] Age/Sex: 35 / F ADM Date: 07/15/25 Loc: US Attending Dr: Le Buckner D.O. Ordering Physician: Le Buckner D.O. Date of Service: 07/15/25 Procedure(s): US OB BPP w non-stress Accession Number(s): [id number] cc: Robles Charles D.O.; Le Buckner D.O. The [address] [address] Patient Name: PHILLIP HERNANDEZ MRN: [id number] date: 1990 Sex: F Assigned Patient Location: [facility] Current Patient Location: Accession/Order Number: [id number] Exam Date: 07/15/2025 09:17 Report Date: 07/15/2025 09:18 At the request of: LE BUCKNER DO Procedure: US OB BPP w non-stress Biophysical profile. Reason for exam: Advanced maternal age COMPARISON: 07/08/2025 TECHNIQUE: Transabdominal imaging of the gravid uterus was obtained. FINDINGS: The tipple operator reports a BPP of 8 out of 8. MARTY is normal at 14 cm. heart rate 136 bpm. US/US OB BPP w non-stress IMPRESSION: BPP 8 out of 8. Impression dictated by: Justin Mack Jr., D.O. 07/15/2025 9:18 AM Dictation Location: [place] [address] Electronically authenticated by: [id number] Y Date: 07/15/2025 09:18 Dictated By: Justin Mack M.D. Signed By: 07/15/25919 DD/ 7 TD/TT: Insurance Solicitor: Procedure Note Radiology, Radiologist, MD - 07/15/2025 [place] [address] Ultrasound Report Signed Patient: PHILLIP HERNANDEZ LMR#: [id number] : 1990Acct:[id number] Age/Sex: 35 / FADM Date: 07/15/25 Loc: US Attending Dr: Le Buckner D.O. Ordering Physician: Le Buckner D.O. Date of Service: 07/15/25 Procedure(s): US OB BPP w non-stress Accession Number(s): [id number] cc: Robles Charles D.O.; Le Buckner D.O. [facility] [address], [place] [address] Patient Name: PHILLIP HERNANDEZ MRN: [facility]:[id number] date: 1990 Sex: F Assigned Patient Location: [facility] Current Patient Location: Accession/Order Number: [id number] Exam Date: 07/15/2025 09:17 Report Date: 07/15/2025 09:18 At the request of: LE BUCKNER DO Procedure: US OB BPP w non-stress Biophysical profile. Reason for exam: Advanced maternal age COMPARISON: 07/08/2025 TECHNIQUE: Transabdominal imaging of the gravid uterus was obtained. FINDINGS: The tipple operator reports a BPP of 8 out of 8. MARTY is normal at14 cm. heart rate 136 bpm. US/US OB BPP w non-stress IMPRESSION: BPP 8 out of 8. Impression dictated by: Justin Mack Jr., D.O. 07/15/2025 9:18 AM Dictation Location: [place] [address] Electronically authenticated by: [id number] Y Date: 509:18 Dictated By: Justin Mack M.D. Signed By:07/15/25919 DD/ 7 TD/TT: Insurance Solicitor: Le Buckner DO [facility] Final Result documented in this encounter Visit Diagnoses Not on filedocumented in this encounter Care Teams Wedding Planner Relationship Specialty Start Date End Date Robles Charles DO [address] [place] [address] PCP - General Internal Medicine 07/30/23 Deisy Haji PA [address] [place] [address] [place] [address] PCP - Medical [place] [employer] 11/30/23 11/29/99 documented as of this encounter
--- OUTSIDE RECORDS SUMMARY | 2025-07-29 07:52 | XMS_ITS | CCD ---
Author Organization [facility] CliniSynj Care Team Providers Care Retail Zone Specialist Name Role Phone Subha Dillon Unavailable Elsi Mayer Unavailable MD Liz Conteh Primary Care Provider [phone] DO Delano Francis Attending Provider [phone] SITA, DR LUJAN Consulting Unavailable SITA, DR LUJAN Admitting Unavailable REQUEST, DR RAIN LISTED Primary Care Unavaila jt BUCKNER, DR LUJAN Attending Unavailable NELA, DR SEARS Attending Unavailable NELA, DR SEARS Consulting Unavailable NELA, DR SEARS Admitting Unavailable REQUEST, DR RAIN LISTED Primary Care Unavaila Kiya Gonsalves Unavailable MD Derick Timmons Attending Provider [phone] SHANNON Schaffer Attending Provider [phone] Robles Charles Unavailable MD Liz Conteh Primary Care Provider [phone] DO Delano Francis Attending Provider QUANG Villar Attending Provider DO Robles Charles Primary Care Provider [phone] Robles Charles MD Primary Care Provider QUANG [...] Unavailable Robles Charles DO Primary Care Provider [phone] [facility] Delano CRESPO Attending Provider Robles Charles MD Primary Care Provider Robles Charles DO Primary Care Provider Robles Charles DO Primary Care Provider SITA, ÁNGEL Attending Unavailable ADITHYA, DEISY Attending Unavailable SITA, ÁNGEL Attending Unavailable SITA, ÁNGEL Referring Unavailable ADITHYA, DEISY Attending Unavailable SITA, NÁGEL Attending Unavailable SITA, ÁNGEL Attending Unavailable ADITHYA, DEISY Referring Unavailable SITA, ÁNGEL Attending Unavailable ISTA, ÁNGEL Attending Unavailable SITA, ÁNGEL Attending Unavailable SITA, ÁNGEL Attending Unavailable SITA, ÁNGEL Attending Unavailable Allergies Allergy Classification Reported Allergen(s) Allergy Type Date of Onset Reaction(s) Facility (5 sources) Penicillin V Drug Allergy rash [facility] [employer] Other (1 source) Amoxicillin Drug Allergy 0 [facility] Repository (1 source) Penicillins Drug allergy (disorder) [facility] Repository (5 sources) Penicillin Drug Allergy rash [employer] [facility] [employer] Other (1 source) Substance with penicillin structure and antibacterial mechanism of action (substance) Drug allergy 3 PENICILLINS [facility] [employer] Other (20 sources) Amoxicillin Drug Allergy 3 [facility] (20 sources) Penicillin G Drug Allergy 3 Unknown [facility] (1 source) Penicillins Drug allergy (disorder) 4 [facility] Repository Medications Current Medications Medication Drug Class(es) [...] Active Pre- (10 sources) Pre-Mack Not-Ta flakita Pre- Active MV-Min-Fe Fum-FA-DH A [...] Overweight Episodic Other and delivery including normal (20 sources) Second trimester ; Translations: [Encounter for [...] [36 weeks gestation of ] 07-17-2025 Episodic Residual codes; unclassified (2 sources) Gestation period, 37 weeks; Translations: [37 weeks gestation of ] 07-24-2025 Episodic Unclassified (1 source) Endocrine disorder, unspecified; Translations: [Endocrine disorder, unspecified] Onset: Past or Other Problems Problem Classification Problem Date Documented Da te Episodic/Chronic Unclassified (1 source) Contact with and (suspected) exposure to covid-19 Z20.822 Viral infection (1 source) COVID-19 Onset: 12-27-2021 Resolved: 12-27-2021 Results Test Name Value Interpretation Reference Range Facility Urinalysis macro (dipstick) panel (U)on 07-24-2025 Bilirubin, UA Negative Negative - 4(70) +++ mg/dL [facility] Blood, UA Negative Negative - 50 Ezequiel/mcL [facility] Clarity, UA Clear [facility] Color, UA Christine [facility] Glucose, UA Negative Negative - 2000(110) ++++ mg/dL [facility] Interpretation and review of laboratory results Abnormal [facility] Ketones, UA Negative Negative - 160(16) ++++ mg/dL [facility] Leukocytes, UA Positive Negative - 500+++ Jason/mcL [facility] Comment on above: 1+ Nitrite, UA Negative Negative - Positive [facility] pH, UA 6 5 - 9 [facility] Protein, UA Positive Negative - 1999(20) ++++ mg/dL [facility] Comment on above: 0.15 g/L Spec Grav, UA 1.015 1 - 1.03 [facility] Urobilinogen, UA 0.2 0.2 - 12 mg/dL [facility] US OB BPP W NON-STRESS on 07-22-2025 [place] [address] Ultrasound Report Signed Patient: ANGELA REYES MR#: [id number] : 1990 Acct:[id number] Age/Sex: 35 / F ADM Date: 07/22/25 Loc: US Attending Dr: Ángel Buckner D.O. Ordering Physician: Ángel Buckner D.O. Date of Service: 07/22/25 Procedure(s): US OB BPP w non-stress Accession Number(s): [id number] cc: Robles Charles D.O.; Ángel Buckner D.O. [place] [address] Patient Name: ANGELA REYES MRN: [facility]:[id number] date: 1990 Sex: F Assigned Patient Location: Current Patient Location: Accession/Order Number: [id number] Exam Date: 07/22/2025 07:58 Report Date: 07/22/2025 17:02 At the request of: ÁNGEL BUCKNER DO [...] Yusuf M.D. 07/22/2025 5:02 PM Dictation Location: [place] [address] Electronically authenticated by: [id number] Y Date: 07/22/2025 17:02 Dictated By: Roddy Yusuf M.D. Signed By: 07/22/252015 DD/ 01 TD/TT: Quality Systems Engineer: [employer] Radiology, Radiologi MD ember - 07/22/2025 [place] [address] Ultrasound Report Signed Patient: ANGELA REYES MR#: [id number] : 1990 Acct:[id number] Age/Sex: 35 / F ADM Date: 07/22/25 Loc: US Attending Dr: Ángel Buckner D.O. Ordering Physician: Ángel Buckner D.O. Date of Service: 07/22/25 Procedure(s): US OB BPP w non-stress Accession Number(s): [id number] cc: Robles Charles D.O.; Ángel Buckner D.O. The [place] [id number] Patient Name: ANGELA REYES MRN: [employer]:[id number] date: 1990 Sex: F Assigned Patient Location: Current Patient Location: Accession/Order Number: [id number] Exam Date: 07/22/2025 07:58 Report Date: 07/22/2025 17:02 At the request of: ÁNGEL BUCKNER DO [...] BPP w non-stress IMPRESSION: Biophysical profile score: 07/07 Impression dictated by: Roddy Yusuf M.D. 07/22/2025 5:02 PM Dictation Location: [place] [address] Electronically authenticated by: [id number] Y Date: 07/22/2025 17:02 Dictated By: Roddy Yusuf M.D. Signed By: 07/22/252015 DD/ 01 TD/TT: Quality Systems Engineer: [facility] Radiology Study observation (narrative) [facility] US OB BPP W NON-STRESS Ordered By: Radiologist Radiology on 07-22-2025 [facility] Work Phone: Urinalysis macro (dipstick) panel (U)on 07-17-2025 Bilirubin, UA Negative Negative - 4(70) +++ mg/dL [facility] Blood, UA Negative Negative - 50 Ezequiel/mcL [facility] Clarity, UA Clear [facility] Color, UA Yellow [facility] Glucose, UA Negative Negative - 2000(110) ++++ mg/dL [facility] Interpretation and review of laboratory results Abnormal [facility] Ketones, UA Negative Negative - 160(16) ++++ mg/dL [facility] Leukocytes, UA Positive Negative - 500+++ Jason/mcL [facility] Comment on above: 2+ Nitrite, UA Negative Negative - Positive [facility] pH, UA 6 5 - 9 [facility] Protein, UA Negative Negative - 2000(20) ++++ mg/dL [facility] Spec Grav, UA 1.015 1 - 1.03 [facility] Urobilinogen, UA 1.0 0.2 - 12 mg/dL [facility] US OB BPP W NON-STRESS on 07-15-[address] [address] Ultrasound Report Signed Patient: ANGELA REYES MR#: [id number] : 1990 Acct:[id number] Age/Sex: 35 / F ADM Date: 07/15/25 Loc: US Attending Dr: Ángel Buckner D.O. Ordering Physician: Ángel Buckner D.O. Date of Service: 07/15/25 Procedure(s): US OB BPP w non-stress Accession Number(s): [id number] cc: Robles Charles D.O.; Ángel Buckner D.O. The [place] [id number] Patient Name: ANGELA REYES MRN: [employer]:[id number] date: 1990 Sex: F Assigned Patient Location: [facility] Current Patient Location: Accession/Order Number: [id number] Exam Date: 07/15/2025 09:17 Report Date: 07/15/2025 09:18 At the request of: ÁNGEL BUCKNER DO Procedure: US OB BPP w non-stress Biophysical profile. Reason for exam: Advanced maternal age COMPARISON: 07/08/2025 TECHNIQUE: Transabdominal imaging of the gravid uterus was obtained. FINDINGS: The vehicle trimmer reports a BPP of 8 out of 8. MARTY is normal at 14 cm. heart rate 136 bpm. US/US OB BPP w non-stress IMPRESSION: BPP 8 out of 8. Impression dictated by: Justin Mack Jr., D.O. 07/15/2025 9:18 AM Dictation Location: [place] [address] Electronically authenticated by: [id number] Y Date: 07/15/2025 09:18 Dictated By: Justin Mack M.D. Signed By: 07/15/25919 DD/ 7 TD/TT: Quality Systems Engineer: [employer] Radiology, Radiologbrittanie pa MD - 07/15/2025 [place] [address] Ultrasound Report Signed Patient: ANGELA REYES MR#: [id number] : 1990 Acct:[id number] Age/Sex: 35 / F ADM Date: 07/15/25 Loc: US Attending Dr: Ángel Buckner D.O. Ordering Physician: Ángel Buckner D.O. Date of Service: 07/15/25 Procedure(s): US OB BPP w non-stress Accession Number(s): [id number] cc: Robles Charles D.O.; Ángel Buckner D.O. [place] [address] Patient Name: ANGELA REYES MRN: [employer]:[id number] date: 1990 Sex: F Assigned Patient Location: [facility] Current Patient Location: Accession/Order Number: [id number] Exam Date: 07/15/2025 09:17 Report Date: 07/15/2025 09:18 At the request of: ÁNGEL BUCKNER DO Procedure: US OB BPP w non-stress Biophysical profile. Reason for exam: Advanced maternal age COMPARISON: 07/08/2025 TECHNIQUE: Transabdominal imaging of the gravid uterus was obtained. FINDINGS: The vehicle trimmer reports a BPP of 8 out of 8. MARTY is normal at 14 cm. heart rate 136 bpm. US/US OB BPP w non-stress IMPRESSION: BPP 8 out of 8. Impression dictated by: Justin Mack Jr., D.O. 07/15/2025 9:18 AM Dictation Location: [place] [address] Electronically authenticated by: [id number] Y Date: 07/15/2025 09:18 Dictated By: Justin Mack M.D. Signed By: 07/15/25919 DD/ 7 TD/TT: Quality Systems Engineer: [facility] Radiology Study observation (narrative) [facility] US OB BPP W NON-STRESS Ordered By: Radiologist Radiology on 07-15-2025 [facility] Work Phone: Urinalysis macro (dipstick) panel (U)on 07-10-2025 Bilirubin, UA Negative Negative - 4(70) +++ mg/dL [facility] Blood, UA Negative Negative - 50 Ezequiel/mcL [facility] Clarity, UA Clear [facility] Color, UA Yellow [facility] Glucose, UA Negative Negative - 2000(110) ++++ mg/dL [facility] Interpretation and review of laboratory results Abnormal [facility] Ketones, UA Negative Negative - 160(16) ++++ mg/dL [facility] Leukocytes, UA Positive Negative - 500+++ Jason/mcL [facility] Comment on above: small Nitrite, UA Negative Negative - Positive [facility] pH, UA 6 5 - 9 [facility] Protein, UA Negative Negative - 2000(20) ++++ mg/dL [facility] Spec Grav, UA 1.015 1 - 1.03 [facility] Urobilinogen, UA 0.2 0.2 - 12 mg/dL [facility] US OB BPP W NON-STRESS on 07-08-2025 [place] [address] Ultrasound Report Signed Patient: ANGELA REYES MR#: [id number] : 1990 Acct:[id number] Age/Sex: 35 / F ADM Date: 07/08/25 Loc: US Attending Dr: Ángel Buckner D.O. Ordering Physician: Ángel Buckner D.O. Date of Service: 07/08/25 Procedure(s): US OB BPP w non-stress Accession Number(s): [id number] cc: Robles Charles D.O.; Ángel Buckner D.O. [place] [address] Patient Name: ANGELA REYES MRN: [employer]:[id number] date: 1990 Sex: F Assigned Patient Location: [facility] Current Patient Location: Accession/Order Number: [id number] Exam Date: 07/08/2025 09:19 Report Date: 07/08/2025 09:19 At the request of: ÁNGEL BUCKNER DO Procedure: US OB BPP w non-stress Biophysical profile. Reason for exam: History of miscarriage COMPARISON: 07/01/2025 TECHNIQUE: Transabdominal imaging of the gravid uterus was obtained. FINDINGS: The vehicle trimmer reports a BPP of 8 out of 8. MARTY is normal at 12.5 cm. heart rate 135 bpm. US/US OB BPP w non-stress IMPRESSION: BPP 8 out of 8. Impression dictated by: Justin Mack Jr., D.O. 07/08/2025 9:19 AM Dictation Location: [facility] Electronically authenticated by: [id number] Y Date: 07/08/2025 09:19 Dictated By: Justin Mack M.D. Signed By: 07/08/25921 DD/ 8 TD/TT: Quality Systems Engineer: [employer] Radiology, Radiologi MD ember - 07/08/2025 [place] [address] Ultrasound Report Signed Patient: ANGELA REYES MR#: [id number] : 1990 Acct:[id number] Age/Sex: 35 / F ADM Date: 07/08/25 Loc: US Attending Dr: Ángel Buckner D.O. Ordering Physician: Ángel Buckner D.O. Date of Service: 07/08/25 Procedure(s): US OB BPP w non-stress Accession Number(s): [id number] cc: Robles Charles D.O.; Ángel Buckner D.O. The [place] [id number] Patient Name: ANGELA REYES MRN: [employer]:[id number] date: 1990 Sex: F Assigned Patient Location: [facility] Current Patient Location: Accession/Order Number: [id number] Exam Date: 07/08/2025 09:19 Report Date: 07/08/2025 09:19 At the request of: ÁNGEL BUCKNER DO Procedure: US OB BPP w non-stress Biophysical profile. Reason for exam: History of miscarriage COMPARISON: 07/01/2025 TECHNIQUE: Transabdominal imaging of the gravid uterus was obtained. FINDINGS: The vehicle trimmer reports a BPP of 8 out of 8. MARTY is normal at 12.5 cm. heart rate 135 bpm. US/US OB BPP w non-stress IMPRESSION: BPP 8 out of 8. Impression dictated by: Justin Mack Jr., D.O. 07/08/2025 9:19 AM Dictation Location: [place] [address] Electronically authenticated by: [id number] Y Date: 07/08/2025 09:19 Dictated By: Justin Mack M.D. Signed By: 07/08/25921 DD/ 8 TD/TT: Quality Systems Engineer: [facility] Radiology Study observation (narrative) [facility] US OB BPP W NON-STRESS Ordered By: Radiologist Radiology on 07-08-2025 [facility] Work Phone: US OB BPP W NON-STRESS on 07-01-2025 [place] [address] Ultrasound Report Signed Patient: ANGELA REYES MR#: [id number] : 1990 Acct:[id number] Age/Sex: 35 / F ADM Date: 07/01/25 Loc: US Attending Dr: Ángel Buckner D.O. Ordering Physician: Ángel Buckner D.O. Date of Service: 07/01/25 Procedure(s): US OB BPP w non-stress Accession Number(s): [id number] cc: Robles Charles D.O.; Ángel Buckner D.O. [place] [id number] Patient Name: ANGELA REYES MRN: [employer]:[id number] date: 1990 Sex: F Assigned Patient Location: [facility] Current Patient Location: Accession/Order Number: [id number] Exam Date: 07/01/2025 20:05 Report Date: 07/01/2025 [...] Yusuf M.D. 07/01/2025 8:07 PM Dictation Location: [place] [address] Electronically authenticated by: [id number] Y Date: 07/01/2025 20:07 Dictated By: Roddy Yusuf M.D. Signed By: 07/01/252008 DD/ 06 TD/TT: Quality Systems Engineer: [employer] Radiology, Radiologi MD ember - 07/01/2025 [place] [address] Ultrasound Report Signed Patient: ANGELA REYES MR#: [id number] : 1990 Acct:[id number] Age/Sex: 35 / F ADM Date: 07/01/25 Loc: US Attending Dr: Ángel Buckner D.O. Ordering Physician: Ángel Buckner D.O. Date of Service: 07/01/25 Procedure(s): US OB BPP w non-stress Accession Number(s): [id number] cc: Robles Charles D.O.; Ángel Buckner D.O. The [place] [id number] Patient Name: ANGELA REYES MRN: [employer]:[id number] date: 1990 Sex: F Assigned Patient Location: [facility] Current Patient Location: Accession/Order Number: [id number] Exam Date: 07/01/2025 20:05 Report Date: 07/01/2025 [...] Yusuf M.D. 07/01/2025 8:07 PM Dictation Location[facility] Electronically authenticated by: [id number] Y Date: 07/01/2025 20:07 Dictated By: Roddy Yusuf M.D. Signed By: 07/01/252008 DD/ 06 TD/TT: Quality Systems Engineer: [facility] Radiology Study observation (narrative) [facility] US OB BPP W NON-STRESS Ordered By: Radiologist Radiology on 07-01-2025 [facility] Work Phone: US OB FOLLOW UP TRANSABDOMIN [...] II, MD, PHD at 26-Jun-2025 11:42:39 PM [employer] [place] [facility] Normal Not Available Comment on above: Order Comment: US OB SCAN FOR GROWTH Estimated Date of Delivery: 08/09/25 Gestational Age as of 06/12/2025: 31w5d Urinalysis macro (dipstick) panel (U)on 06-26-2025 Bilirubin, UA Negative Negative - 4(70) +++ mg/dL [facility] Blood, UA Negative Negative - 50 Ezequiel/mcL [facility] Clarity, UA Clear [facility] Color, UA Yellow [facility] Glucose, UA Negative Negative - 2000(110) ++++ mg/dL [facility] Interpretation and review of laboratory results Normal [facility] Ketones, UA Negative Negative - 160(16) ++++ mg/dL [facility] Leukocytes, UA Negative Negative - 500+++ Jason/mcL [facility] Nitrite, UA Negative Negative - Positive [facility] pH, UA 6.5 5 - 9 [facility] Protein, UA Negative Negative - 2000(20) ++++ mg/dL [facility] Spec Grav, UA 1.01 1 - 1.03 [facility] Urobilinogen, UA 1.0 0.2 - 12 mg/dL [facility] US OB BPP W NON-STRESS on 06-24-2025 [place] [address] Ultrasound Report Signed Patient: ANGELA REYES MR#: [id number] : 1990 Acct:[id number] Age/Sex: 35 / F ADM Date: 06/24/25 Loc: US Attending Dr: Ángel Buckner D.O. Ordering Physician: Ángel Buckner D.O. Date of Service: 06/24/25 Procedure(s): US OB BPP w non-stress Accession Number(s): [id number] cc: Robles Charles D.O.; Ángel Buckner D.O. [address] [address] Patient Name: ANGELA REYES MRN: [employer]:[id number] date: 1990 Sex: F Assigned Patient Location: US Current Patient Location: Accession/Order Number: [id number] Exam Date: 06/24/2025 09:33 Report Date: 06/24/2025 09:34 At the request of: ÁNGEL BUCKNER DO Procedure: US OB BPP w non-stress Biophysical profile. Reason for exam: History of miscarriage COMPARISON: 06/17/2025 TECHNIQUE: Transabdominal imaging of the gravid uterus was obtained. FINDINGS: The vehicle trimmer reports a BPP of 8 out of 8. MARTY is normal at 15 cm. heart rate 130 bpm. US/US OB BPP w non-stress IMPRESSION: BPP 8 out of 8. Impression dictated by: Justin Mack Jr., D.O. 06/24/2025 9:34 AM Dictation Location: [facility] Electronically authenticated by: [id number] Y Date: 06/24/2025 09:34 Dictated By: Justin Mack M.D. Signed By: 06/24/2536 DD/ TD/TT: Quality Systems Engineer: [employer] RadiologyNeelimaogbrittanie pa MD - 06/24/2025 [place] [address] Ultrasound Report Signed Patient: ANGELA REYES MR#: [id number] : 1990 Acct:[id number] Age/Sex: 35 / F ADM Date: 06/24/25 Loc: US Attending Dr: Ángel Buckner D.O. Ordering Physician: Ángel Buckner D.O. Date of Service: 06/24/25 Procedure(s): US OB BPP w non-stress Accession Number(s): [id number] cc: Robles Charles D.O.; Ángel Buckner D.O. The [place] [id number] Patient Name: ANGELA REYES MRN: [facility]:[id number] date: 1990 Sex: F Assigned Patient Location: Current Patient Location: Accession/Order Number: [id number] Exam Date: 06/24/2025 09:33 Report Date: 06/24/2025 09:34 At the request of: ÁNGEL BUCKNER DO Procedure: US OB BPP w non-stress Biophysical profile. Reason for exam: History of miscarriage COMPARISON: 06/17/2025 TECHNIQUE: Transabdominal imaging of the gravid uterus was obtained. FINDINGS: The vehicle trimmer reports a BPP of 8 out of 8. MARTY is normal at 15 cm. heart rate 130 bpm. US/US OB BPP w non-stress IMPRESSION: BPP 8 out of 8. Impression dictated by: Justin Mack Jr., D.O. 06/24/2025 9:34 AM Dictation Location: [place] [address] Electronically authenticated by: [id number] Y Date: 06/24/2025 09:34 Dictated By: Justin Mack M.D. Signed By: 06/24/2536 DD/ 3 TD/TT: Quality Systems Engineer: [facility] Radiology Study observation (narrative) [facility] US OB BPP W NON-STRESS Ordered By: Radiologist Radiology on 06-24-2025 [facility] Work Phone: US OB BPP W NON-STRESS on 06-17-2025 [place] [address] Ultrasound Report Signed Patient: ANGELA REYES MR#: [id number] : 1990 Acct:[id number] Age/Sex: 35 / F ADM Date: 06/17/25 Loc: [facility] 250-[address]: Ángel Buckner D.O. Ordering Physician: Ángel Buckner D.O. Date of Service: 06/17/25 Procedure(s): US OB BPP w non-stress Accession Number(s): [id number] cc: Robles Charles D.O.; Ángel Buckner D.O. The [address] [address] Patient Name: ANGELA REYES MRN: [employer]:[id number] date: 1990 Sex: F Assigned Patient Location: [facility] Current Patient Location: [facility] Accession/Order Number: [id number] Exam Date: 06/17/2025 09:17 Report Date: 06/17/2025 [...] Ramachandran M.D. 06/17/2025 9:20 AM Dictation Location: [place] [address] Electronically authenticated by: [id number] Y Date: 06/17/2025 09:20 Dictated By: Carlton Ramachandran M.D. Signed By: 06/17/25921 DD/ 9 TD/TT: Quality Systems Engineer: [employer] RadiologyTyrese MD - 06/17/2025 [place] [address] Ultrasound Report Signed Patient: ANGELA REYES MR#: [id number] : 1990 Acct:[id number] Age/Sex: 35 / F ADM Date: 06/17/25 Loc: [facility] 250-[address]: Ángel Buckner D.O. Ordering Physician: Ángel Buckner D.O. Date of Service: 06/17/25 Procedure(s): US OB BPP w non-stress Accession Number(s): [id number] cc: Robles Charles D.O.; Ánegl Buckner D.O. The [address] [address] Patient Name: ANGELA REYES MRN: [employer]:[id number] date: 1990 Sex: F Assigned Patient Location: [facility] Current Patient Location: [facility] Accession/Order Number: [id number] Exam Date: 06/17/2025 09:17 Report Date: 06/17/2025 [...] Ramachandran M.D. 06/17/2025 9:20 AM Dictation Location: [facility] Electronically authenticated by: [id number] Y Date: 06/17/2025 09:20 Dictated By: Carlton Ramachandran M.D. Signed By: 06/17/25921 DD/ 9 TD/TT: Quality Systems Engineer: [facility] Radiology Study observation (narrative) [facility] US OB BPP W NON-STRESS Ordered By: Radiologist Radiology on 06-17-2025 [facility] [employer] Work Phone: US OB BPP W NON-STRESS on 06-10-2025 [place] [address] Ultrasound Report Signed Patient: ANGELA REYES MR#: [id number] : 1990 Acct:[id number] Age/Sex: 35 / F ADM Date: 06/10/25 Loc: US Attending Dr: Ángel Buckner D.O. Ordering Physician: Ángel Buckner D.O. Date of Service: 06/10/25 Procedure(s): US OB BPP w non-stress Accession Number(s): [id number] cc: Robles Charles D.O.; Ángel Buckner D.O. The [address] [address] Patient Name: ANGELA REYES MRN: [employer]:[id number] date: 1990 Sex: F Assigned Patient Location: [facility] Current Patient Location: Accession/Order Number: [id number] Exam Date: 06/10/2025 18:36 Report Date: 06/10/2025 [...] Yusuf M.D. 06/10/2025 6:38 PM Dictation Location: [place] [address] Electronically authenticated by: [id number] Y Date: 06/10/2025 18:38 Dictated By: Roddy Yusuf M.D. Signed By: 06/10/25 184 DD/ 1838 TD/TT: Quality Systems Engineer: [employer] Radiology Radiologbrittanie pa MD - 06/10/2025 [place] [address] Ultrasound Report Signed Patient: ANGELA REYES MR#: [id number] : 1990 Acct:[id number] Age/Sex: 35 / F ADM Date: 06/10/25 Loc: US Attending Dr: Ángel Buckner D.O. Ordering Physician: Ángel Buckner D.O. Date of Service: 06/10/25 Procedure(s): US OB BPP w non-stress Accession Number(s): [id number] cc: Robles Charles D.O.; Ángel Buckner D.O. [place] [id number] Patient Name: ANGELA REYES MRN: [employer]:[id number] date: 1990 Sex: F Assigned Patient Location: [facility] Current Patient Location: Accession/Order Number: [id number] Exam Date: 06/10/2025 18:36 Report Date: 06/10/2025 [...] Yusuf M.D. 06/10/2025 6:38 PM Dictation Location: [place] [address] Electronically authenticated by: [id number] Y Date: 06/10/2025 18:38 Dictated By: Roddy Yusuf M.D. Signed By: 06/10/25 184 DD/ 1838 TD/TT: Quality Systems Engineer: [facility] Radiology Study observation (narrative) [facility] US OB BPP W NON-STRESS Ordered By: Radiologist Radiology on 06-10-2025 [facility] Work Phone: US OB BPP W NON-STRESS on 06-03-2025 [place] [address] Ultrasound Report Signed Patient: ANGELA REYES MR#: [id number] : 1990 Acct:[id number] Age/Sex: 35 / F ADM Date: 06/03/25 Loc: US Attending Dr: Ángel Buckner D.O. Ordering Physician: Ángel Buckner D.O. Date of Service: 06/03/25 Procedure(s): US OB BPP w non-stress Accession Number(s): [id number] cc: Robles Charles D.O.; Ángel Buckner D.O. The [place] [id number] Patient Name: ANGELA REYES MRN: [employer]:[id number] date: 1990 Sex: F Assigned Patient Location: [facility] Current Patient Location: Accession/Order Number: [id number] Exam Date: 06/03/2025 14:22 Report Date: 06/03/2025 [...] Durand M.D. 06/03/2025 2:23 PM Dictation Location: [place] [address] Electronically authenticated by: [id number] Y Date: 06/03/2025 14:23 Dictated By: Aguilar Durand D.O. Signed By: 06/03/25 1425 DD/ 1423 TD/TT: Quality Systems Engineer: [employer] Radiology, Radiologi MD ember - 06/03/2025 [place] [address] Ultrasound Report Signed Patient: ANGELA REYES MR#: [id number] : 1990 Acct:[id number] Age/Sex: 35 / F ADM Date: 06/03/25 Loc: US Attending Dr: Ángel Buckner D.O. Ordering Physician: Ángel Buckner D.O. Date of Service: 06/03/25 Procedure(s): US OB BPP w non-stress Accession Number(s): [id number] cc: Robles Charles D.O.; Ángel Buckner D.O. [place] [id number] Patient Name: ANGELA REYES MRN: [employer]:[id number] date: 1990 Sex: F Assigned Patient Location: [facility] Current Patient Location: Accession/Order Number: [id number] Exam Date: 06/03/2025 14:22 Report Date: 06/03/2025 [...] Durand M.D. 06/03/2025 2:23 PM Dictation Location: [facility] Electronically authenticated by: [id number] Y Date: 06/03/2025 14:23 Dictated By: Aguilar Durand D.O. Signed By: 06/03/25 1425 DD/ 142 TD/TT: Quality Systems Engineer: [facility] Radiology Study observation (narrative) [facility] US OB BPP W NON-STRESS Ordered By: Radiologist Radiology on 06-03-2025 [facility] Work Phone: Urinalysis macro (dipstick) panel (U)on 05-30-2025 Bilirubin, UA Negative Negative - 4(70) +++ mg/dL [facility] Blood, UA Negative Negative - 50 Ezequiel/mcL [facility] Clarity, UA Clear [facility] Color, UA Yellow [facility] Glucose, UA Negative Negative - 2000(110) ++++ mg/dL [facility] Interpretation and review of laboratory results Normal [facility] Ketones, UA Negative Negative - 160(16) ++++ mg/dL [facility] Leukocytes, UA Negative Negative - 500+++ Jason/mcL [facility] Nitrite, UA Negative Negative - Positive [facility] pH, UA 5.5 5 - 9 [facility] Protein, UA Negative Negative - 2000(20) ++++ mg/dL [facility] Spec Grav, UA 1.02 1 - 1.03 [facility] Urobilinogen, UA 1.0 0.2 - 12 mg/dL [facility] US OB GROWTHon 05-11-2025 [place] [address] Ultrasound Report Signed Patient: ANGELA REYES MR#: [id number] : 1990 Acct:[id number] Age/Sex: 35 / F ADM Date: 05/11/25 Loc: Attending Dr: Edson Dewitt Ordering Physician: Edson Dewitt Date of Service: 05/11/25 Procedure(s): US OB growth Accession Number(s): [id number] cc: Robles Charles D.O.; Edson Dewitt [place] [id number] Patient Name: ANGELA REYES MRN: [facility]:[id number] date: 1990 Sex: F Assigned Patient Location: Current Patient Location: Accession/Order Number: [id number] Exam Date: 05/11/2025 14:38 Report Date: 05/11/2025 [...] 05/11/2025 2:40 PM Dictation Location: [place] [address] Electronically authenticated by: [id number] Y Date: 05/11/2025 14:40 Dictated By: Justin Mack M.D. Signed By: 05/11/25 1442 DD/ 1440 TD/TT: Quality Systems Engineer: [employer] Radiology, Radiologi MD ember - 05/11/2025 [place] [address] Ultrasound Report Signed Patient: ANGELA REYES MR#: [id number] : 1990 Acct:[id number] Age/Sex: 35 / F ADM Date: 05/11/25 Loc: US Attending Dr: Edson Dewitt Ordering Physician: Edson Dewitt Date of Service: 05/11/25 Procedure(s): US OB growth Accession Number(s): [id number] cc: Robles Charles D.O.; Edson Deiwtt The [place] [id number] Patient Name: ANGELA REYES MRN: [employer]:[id number] date: 1990 Sex: F Assigned Patient Location: US Current Patient Location: US Accession/Order Number: [id number] Exam Date: 05/11/2025 14:38 Report Date: 05/11/2025 [...] 05/11/2025 2:40 PM Dictation Location: [place] [address] Electronically authenticated by: [id number] Y Date: 05/11/2025 14:40 Dictated By: Justin Mack M.D. Signed By: 05/11/25 144 DD/ 39 TD/TT: Quality Systems Engineer: [facility] Radiology Study observation (narrative) [facility] US OB GROWTHOrdered By: Radi ologist Radiology on 05-11-2025 [facility] Work Phone: ALL CBC WITH AUTO DIFFon BASOPHILS ABSOLUTE AUTO 0 [facility] Basophils/100 WBC (Bld) 0.2 % 0.2 - 2.0 % [facility] Eosinophils/100 WBC (Bld) 1.2 % 0.9 - 7.0 % [facility] Erythrocyte distribution width (RBC) [Ratio] 13.2 % 11.0 - 15.0 % [facility] Hematocrit (Bld) [Volume fraction] 31.9 % Low 36.0 - 48.0 % [facility] Hemoglobin (Bld) [Mass/Vol] 10.6 g/dL Low 12.0 - 16.0 g/dL [facility] IMMATURE GRANULOCYTES ABS AUTO 0.06 High [facility] Immature granulocytes/100 WBC (Bld) 0.6 % High 0.0 - 0.5 % [facility] Interpretation and review of laboratory results Abnormal [facility] LYMPHOCYTES ABSOLUTE AUTO 1.6 [facility] Lymphocytes/100 WBC (Bld) 15.6 % Low 20.5 - 60.0 % [facility] MCH (RBC) [Entitic mass] 32.6 pg 26.7 - 34.0 pg [facility] MCHC (RBC) [Mass/Vol] 33.2 g/dL 29.9 - 35.2 g/dL [facility] MCV (RBC) [Entitic vol] 98.2 fL 81.0 - 99.0 fL [facility] MONOCYTES ABSOLUTE AUTO 0.6 [facility] Monocytes/100 WBC (Bld) 6 % 1.7 - 12.0 % [facility] NEUTROPHILS ABSOLUTE AUTO 7.7 High [facility] Neutrophils/100 WBC (Bld) 76.4 % High 43.0 - 75.0 % [facility] Platelet mean volume (Bld) [Entitic vol] 9 fL Low 9.5 - 13.5 fL [facility] EO # 0.1 [facility] PLT 313 [facility] RBC 3.25 Low [facility] WBC 10.1 [facility] GLUCOSE 1 HOURon 04-18-2025 Glucose [Mass/Vol] 96 mg/dL NINF - 13 0 mg/dL [facility] No Panel Informationon 04-18 CL[facility] US OB LIMITED 1+ FETUSESon 0 04-18-2025 [...] II, MD, PHD at 21-Apr-2025 12:15:59 PM [facility] [place] Teleradiology Normal Not Available Comment on above: Order Comment: US OB INCOMPLETE ANATOMY W US OB TRANSVAGINAL Estimated Date of Delivery: 08/09/25 Gestational Age as of 03/30/2025: 21w1d Urinalysis macro (dipstick) panel (U)on 03-30-2025 Bilirubin, UA Negative Negative - 4(70) +++ mg/dL [facility] Blood, UA Negative Negative - 50 Ezequiel/mcL [facility] Clarity, UA Clear [facility] Color, UA Yellow [facility] Glucose, UA Negative Negative - 2000(110) ++++ mg/dL [facility] Interpretation and review of laboratory results Normal [facility] Ketones, UA Negative Negative - 160(16) ++++ mg/dL [facility] Leukocytes, UA Negative Negative - 500+++ Jason/mcL [facility] Nitrite, UA Negative Negative - Positive [facility] pH, UA 7 5 - 9 [facility] Protein, UA Negative Negative - 1999(20) ++++ mg/dL [facility] Spec Grav, UA 1.02 1 - 1.03 [facility] Urobilinogen, UA 0.2 0.2 - 12 mg/dL [facility] US OB ANATOMYon 03-21-[address] [address] Ultrasound Report Signed Patient: ANGELA REYES MR#: [id number] : 1990 Acct:[id number] Age/Sex: 35 / F ADM Date: 03/20/25 Loc: US Attending Dr: Deisy Villar Ordering Physician: Deisy Villar Date of Service: 03/20/25 Procedure(s): US OB anatomy Accession Number(s): [id number] cc: Deisy Villar; Robles Charles D.O. [address] [address] Patient Name: ANGELA REYES MRN: [facility]:[id number] date: 1990 Sex: F Assigned Patient Location: US Current Patient Location: Accession/Order Number: [id number] Exam Date: 03/21/2025 13:12 Report Date: 03/21/2025 [...] Aguilar Durand M.D.03/21/2025 1:16 PM Dictation Location: [place] [address] Electronically authenticated by: [id number] Y Date: 03/21/2025 13:16 Dictated By: Aguilar Durand D.O. Signed By: 03/21/25 1319 DD/ 1316 TD/TT: Quality Systems Engineer: [employer] Radiology Radiologbrittanie pa MD - 03/21/2025 [place] [address] Ultrasound Report Signed Patient: ANGELA REYES MR#: [id number] : 1990 Acct:[id number] Age/Sex: 35 / F ADM Date: 03/20/25 Loc: US Attending Dr: Deisy Villar Ordering Physician: Deisy Villar Date of Service: 03/20/25 Procedure(s): US OB anatomy Accession Number(s): [id number] cc: Deisy Villar; Robles Charles D.O. The [place] [address] Patient Name: ANGELA REYES MRN: [employer]:[id number] date: 1990 Sex: F Assigned Patient Location: US Current Patient Location: Accession/Order Number: [id number] Exam Date: 03/21/2025 13:12 Report Date: 03/21/2025 [...] Aguilar Durand M.D.03/21/2025 1:16 PM Dictation Location: [place] [address] Electronically authenticated by: [id number] Y Date: 03/21/2025 13:16 Dictated By: Aguilar Durand D.O. Signed By: 03/21/25 1319 DD/ 1316 TD/TT: Quality Systems Engineer: [facility] Radiology Study observation (narrative) [facility] US OB ANATOMYOrdered By: Chepe iologdarwin Radiology on 03-21-2025 [facility] Work Phone: US OB CERVICAL LENGTHon 03-01 [place] [address] Ultrasound Report Signed Patient: ANGELA REYES MR#: [id number] : 1990 Acct:[id number] Age/Sex: 35 / F ADM Date: 03/20/25 Loc: US Attending Dr: Deisy Villar Ordering Physician: Deisy Villar Date of Service: 03/20/25 Procedure(s): US OB cervical length Accession Number(s): [id number] cc: Deisy Villar; Robles Charles D.O. The [place] [id number] Patient Name: ANGELA REYES MRN: [employer]:[id number] date: 1990 Sex: F Assigned Patient Location: US Current Patient Location: Accession/Order Number: [id number] Exam Date: 03/21/2025 09:18 Report Date: 03/21/2025 09:19 At the request of: DEISY VILLAR Procedure: US OB cervical length Ultrasound assessment of the cervical length The cervical length is 3.8 cm. The cervical os is closed. US/US OB cervical length IMPRESSION: #3.8 cm cervical length. Impression dictated by: Aguilar Durand M.D.03/21/2025 9:19 AM Dictation Location: [place] [address] Electronically authenticated by: [id number] Date: 03/21/2025 09:19 Dictated By: Aguilar Durand D.O. Signed By: 03/21/25921 DD/ 8 TD/TT: Quality Systems Engineer: [facility], Radiologi MD ember - 03/21/2025 [place] [address] Ultrasound Report Signed Patient: ANGELA REYES MR#: [id number] : 1990 Acct:[id number] Age/Sex: 35 / F ADM Date: 03/20/25 Loc: US Attending Dr: Deisy Villar Ordering Physician: Deisy Villar Date of Service: 03/20/25 Procedure(s): US OB cervical length Accession Number(s): [id number] cc: Robles Ronquillo D.O. The [address] [address] Patient Name: ANGELA REYES MRN: [employer]:[id number] date: 1990 Sex: F Assigned Patient Location: US Current Patient Location: Accession/Order Number: [id number] Exam Date: 03/21/2025 09:18 Report Date: 03/21/2025 09:19 At the request of: DEISY VILLAR Procedure: US OB cervical length Ultrasound assessment of the cervical length The cervical length is 3.8 cm. The cervical os is closed. US/US OB cervical length IMPRESSION: #3.8 cm cervical length. Impression dictated by: Aguilar Durand M.D.03/21/2025 9:19 AM Dictation Location: [employer] Electronically authenticated by: [id number] Y Date: 03/21/2025 09:19 Dictated By: Aguilar Durand D.O. Signed By: 03/21/25921 DD/ 8 TD/TT: Quality Systems Engineer: [facility] Radiology Study observation (narrative) [facility] US OB CERVICAL LENGTHOrdered By: Radiologist Radiology on 03-21-2025 [facility] Work Phone: IGP,APTIMA HPV,AGE GDLNon AGE GDLN ACOG TESTING Note . [facility] Comment on above: TESTS RESULT FLAG UN ITS REF RANGE LAB Clinician Provided Cytology Information Source.............Cervix Other.............. No. of containers..01 ThinPrep Vial Age Algo ACOG Lara... 30-65 01 FLAG LEGEND: L-Low Normal,H-High Normal,LL-Alert Low,HH-Alert High <-Panic Low,>-Panic High,A-Abnormal,AA-Critical Abnormal Performed at: 01 =[address] [address] Ilana Heath MD, HPV APTIMA Negative Negative [facility] Comment on above: This nucleic acid am plification test detects fourteen high- risk HPV types (16,18,31,33,35,39,45,51,52,56,58,59,66,68) without differentiation. Performed at: =[address] [id number] Planer Hand: Ilana Heath MD, Phone: [phone] Performed at: [address] [id number] [place] Hand: Ilana Heath MD, Phone: [phone] IGP, APTIMA HPV, RFX 16/18,45 Note . [facility] Comment on above: TESTS RESULT FLAG U NITS REF RANGE LAB DIAGNOSIS: 02 NEGATIVE FOR INTRAEPITHELIAL LESION OR MALIGNANCY. THIS SPECIMEN WAS RESCREENED PART OF OUR CUSTOMS COMPLIANCE ANALYST PROGRAM. Specimen adequacy: 02 Satisfactory for evaluation. No endocervical component is identified. Performed by: 03 Eugenia Kennedy, Terrazzo Supervisor (ASCP) QC reviewed by: 02 Meredith Chávez, Hose Mender . 02 Note: Note 02 The Pap [...] High,A-Abnormal,AA-Critical Abnormal Performed at: 02 [address] [facility] [address] [address] Ilana Heath MD, 03 KWCYT [facility] [place] [facility] [address] [place] [address] Lloyd Kim MD, SPATULA-ALONE CERVIX [facility] RECURRENT VAGINITIS (HTRX)on 03-03-2025 ATOPOBIUM VAGINAE 0 [facility] ATOPOBIUM VAGINAE Not detected [facility] BVAB 2,3 (BACTERIAL VAGINOSIS ASSOCIATED BACTERIA 2, 3); MOBILUNCUS SPP 0 [facility] BVAB 2,3 (BACTERIAL VAGINOSIS ASSOCIATED BACTERIA 2, 3); MOBILUNCUS SPP Not detected [facility] ANEUDY ALBICANS, PARAPSILOSIS, TROPICALIS 0 [facility] [...] detected N [facility] TRICHOMONAS VAGINALIS 0 [facility] TRICHOMONAS VAGINALIS Not detected N [facility] Urinalysis macro (dipstick) panel (U)on 03-02-2025 Bilirubin, UA Negative Negative - 4(70) +++ mg/dL [facility] Blood, UA Negative Negative - 50 Ezequiel/mcL [facility] Clarity, UA Clear [facility] Color, UA Yellow [facility] Glucose, UA Negative Negative - 1999(110) ++++ mg/dL [facility] Interpretation and review of laboratory results Normal [facility] Ketones, UA Negative Negative - 160(16) ++++ mg/dL [facility] Leukocytes, UA Negative Negative - 500+++ Jason/mcL [facility] Nitrite, UA Negative Negative - Positive [facility] pH, UA 7 5 - 9 [facility] Protein, UA Negative Negative - 1999(20) ++++ mg/dL [facility] Spec Grav, UA 1.02 1 - 1.03 [facility] Urobilinogen, UA 0.2 0.2 - 12 mg/dL [facility] Urinalysis macro (dipstick) panel (U)on 02-02-2025 Bilirubin, UA Negative Negative - 4(70) +++ mg/dL [facility] Blood, UA Negative Negative - 50 Ezequiel/mcL [facility] Clarity, UA Clear [facility] Color, UA Yellow [facility] Glucose, UA Negative Negative - 1999(110) ++++ mg/dL [facility] Interpretation and review of laboratory results Abnormal [facility] Ketones, UA Negative Negative - 160(16) ++++ mg/dL [facility] Leukocytes, UA Trace Negative - 500+++ Jason/mcL [facility] Nitrite, UA Negative Negative - Positive [facility] pH, UA 6 5 - 9 [facility] Protein, UA Negative Negative - 1999(20) ++++ mg/dL [facility] Spec Grav, UA 1.025 1 - 1.03 [facility] Urobilinogen, UA 0.2 0.2 - 12 mg/dL [facility] ALL CBC WITH AUTO DIFFon BASOPHILS ABSOLUTE AUTO 0 [facility] Basophils/100 WBC (Bld) 0.4 % 0.2 - 2.0 % [facility] Eosinophils/100 WBC (Bld) 2.2 % 0.9 - 7.0 % [facility] Erythrocyte distribution width (RBC) [Ratio] 12.5 % 11.0 - 15.0 % [facility] Hematocrit (Bld) [Volume fraction] 34 % Low 36.0 - 48.0 % [facility] Hemoglobin (Bld) [Mass/Vol] 11.7 g/dL Low 12.0 - 16.0 g/dL [facility] IMMATURE GRANULOCYTES ABS AUTO 0.03 [facility] Immature granulocytes/100 WBC (Bld) 0.4 % 0.0 - 0.5 % [facility] Interpretation and review of laboratory results Abnormal [facility] LYMPHOCYTES ABSOLUTE AUTO 1.6 [facility] Lymphocytes/100 WBC (Bld) 20.4 % Low 20.5 - 60.0 % [facility] MCH (RBC) [Entitic mass] 31.5 pg 26.7 - 34.0 pg [facility] MCHC (RBC) [Mass/Vol] 34.4 g/dL 29.9 - 35.2 g/dL [facility] MCV (RBC) [Entitic vol] 91.6 fL 81.0 - 99.0 fL [facility] MONOCYTES ABSOLUTE AUTO 0.6 [facility] Monocytes/100 WBC (Bld) 7.2 % 1.7 - 12.0 % [facility] NEUTROPHILS ABSOLUTE AUTO 5.6 [facility] Neutrophils/100 WBC (Bld) 69.4 % 43.0 - 75.0 % [facility] Platelet mean volume (Bld) [Entitic vol] 9.6 fL 9.5 - 13.5 fL [facility] EO # 0.2 [facility] PLT 302 [facility] RBC 3.71 Low [facility] WBC 8 [facility] US OB TRANSVAGINALon 025 US OB TRANSVAGINAL [...] II, MD, PHD at 09-Jan-2025 09:10:54 AM [facility] [place] Teleradiology Normal Not Available Comment on above: Order Comment: US OB TRANSVAGINAL No LMP recorded. [employer] PREG QUANT HCGon 025 HCG QUANTITATIVE 29087 mIU/mL [facility] Comment on above: 5-50 0.2-1 WEEK 50-500 1-2 WEEKS 100-5,000 2-3 WEEKS 500-10,000 3-4 WEEKS 1,000-50,000 4-5 WEEKS 10,000-100,000 5-6 WEEKS 15,000-200,000 6-8 WEEKS 10,000-100,000 2-[facility] 025 HCG QUANTITATIVE [address]695 mIU/mL [facility] Comment on above: 5-50 0.2-1 WEEK 50-500 1-2 WEEKS 100-5,000 2-3 WEEKS 500-10,000 3-4 WEEKS 1,000-50,000 4-5 WEEKS 10,000-100,000 5-6 WEEKS 15,000-200,000 6-8 WEEKS 10,000-100,000 2-3 MONTHS [facility] Automated basophil %Ordered By: Delano Francis on 09-22-2024 Basophils/100 WBC (Bld) 0.6 % Normal . [facility] Comment on above: Performed By: #### D HEAS, LC T4, [id number], SEROTON, TEST F + T, T3R, THYGLOB AB, ESTRADIOL, TPO, SHBG, ESTRONE, INSULIN, PROG #### [facility] , #### T4F, TRISTEN, TSH3, A1C WTH eA, FILIBERTO, GLU, T3F #### [address] Automated basophil countOrde red By: Delano Francis on 09-22-2024 Basophils (Bld) [#/Vol] 0.0 10*3/uL Normal 0.0-0.2 [facility] Comment on above: Result Comment: PERF ORMED BY: [place] [address] PATHOLOGIST MEDICAL PAYMENT POSTER JOSE GOEL M.D. Performed By: #### D HEAS, LC T4, [id number], SEROTON, TEST F + T, T3R, THYGLOB AB, ESTRADIOL, TPO, SHBG, ESTRONE, INSULIN, PROG #### [facility] , #### T4F, TRISTEN, TSH3, A1C WTH eA, FILIBERTO, GLU, T3F #### [address] Automated blood monocyte cou ntOrdered By: Delano Francis on 09-22-2024 Monocytes (Bld) [#/Vol] 0.4 10*3/uL Normal 0.0-0.8 [facility] Comment on above: Performed By: #### D HEAS, LC T4, [id number], SEROTON, TEST F + T, T3R, THYGLOB AB, ESTRADIOL, TPO, SHBG, ESTRONE, INSULIN, PROG #### [facility] , #### T4F, TRISTEN, TSH3, A1C WTH eA, FILIBERTO, GLU, T3F #### [address] Automated eosinophil %Ordere d By: Delano Francis on 09-22-2024 Eosinophils/100 WBC (Bld) 1.7 % Normal . [facility] Comment on above: Performed By: #### D HEAS, LC T4, [id number], SEROTON, TEST F + T, T3R, THYGLOB AB, ESTRADIOL, TPO, SHBG, ESTRONE, INSULIN, PROG #### [facility] , #### T4F, TRISTEN, TSH3, A1C WTH eA, FILIBERTO, GLU, T3F #### [facility] [address] Automated eosinophil countOr dered By: Delano Francis on 09-22-2024 Eosinophils (Bld) [#/Vol] 0.1 10*3/uL Normal 0.0-0.45 [facility] Comment on above: Performed By: #### D HEAS, LC T4, [id number], SEROTON, TEST F + T, T3R, THYGLOB AB, ESTRADIOL, TPO, SHBG, ESTRONE, INSULIN, PROG #### [facility] , #### T4F, TRISTEN, TSH3, A1C WTH eA, FILIBERTO, GLU, T3F #### [facility] [address] Automated monocyte %Ordered By: Delano Francis on 09-22-2024 Monocytes/100 WBC (Bld) 8.7 % Normal . [facility] Comment on above: Performed By: #### D HEAS, LC T4, [id number], SEROTON, TEST F + T, T3R, THYGLOB AB, ESTRADIOL, TPO, SHBG, ESTRONE, INSULIN, PROG #### [facility] , #### T4F, TRISTEN, TSH3, A1C WTH eA, FILIBERTO, GLU, T3F #### [facility] [address] Automated neutrophil %Ordere d By: Delano Francis on 09-22-2024 Neutrophils/100 WBC (Bld) 63.7 % Normal . [facility] Comment on above: Performed By: #### D HEAS, LC T4, [id number], SEROTON, TEST F + T, T3R, THYGLOB AB, ESTRADIOL, TPO, SHBG, ESTRONE, INSULIN, PROG #### [facility] , #### T4F, TRISTEN, TSH3, A1C WTH eA, FILIBERTO, GLU, T3F #### [address] Basophils Auto (Bld) [#/Vol] Ordered By: Delano Francis on 09-22-2024 Basophils (Bld) [#/Vol] Automated basophil count 0.0-0.2 [facility] Basophils/100 WBC Auto (Bld) Ordered By: Delano Francis on 09-22-2024 Basophils/100 WBC (Bld) Automated basophil % . [facility] Calcium [Mass/volume] in Ser um or PlasmaOrdered By: Delano Francis on 09-22-2024 Calcium [Mass/Vol] 9.4 mg/dL Normal 8.6-10.3 [facility] Comment on above: Performed By: #### Adria NATHAN, JOSSE T4, [id number], SEROTON, TEST F + T, T3R, THYGLOB AB, ESTRADIOL, TPO, SHBG, ESTRONE, INSULIN, PROG #### [facility] , #### T4F, TRISTEN, TSH3, A1C WTH eA, FILIBERTO, GLU, T3F #### [address] Calcium [Mass/Vol] Calcium [Mass/volume ] in Serum or Plasma 8.6-10.3 [facility] Carbon dioxide, total [Moles /volume] in Serum or PlasmaOrdered By: Delano Francis on 09-22-2024 CO2 [Moles/Vol] 29.2 mmol/L Normal 21.0-31.0 [facility] Comment on above: Performed By: #### Adria NATHAN, LC T4, [id number], SEROTON, TEST F + T, T3R, THYGLOB AB, ESTRADIOL, TPO, SHBG, ESTRONE, INSULIN, PROG #### [facility] , #### T4F, TRISTEN, TSH3, A1C WTH eA, FILIBERTO, GLU, T3F #### [facility] [address] CO2 [Moles/Vol] Carbon dioxide, tota l [Moles/volume] in Serum or Plasma 21.0-31.0 [facility] Chloride [Moles/volume] in S stevo or PlasmaOrdered By: Delano Francis on 09-22-2024 Chloride [Moles/Vol] 105 mmol/L Normal 98-[address] [place] [address] Comment on above: Performed By: #### D HEAS, LC T4, [id number], SEROTON, TEST F + T, T3R, THYGLOB AB, ESTRADIOL, TPO, SHBG, ESTRONE, INSULIN, PROG #### [facility] , #### T4F, TRISTEN, TSH3, A1C WTH eA, FILIBERTO, GLU, T3F #### [facility] [address] Chloride [Moles/Vol] Chloride [Moles/vol ume] in Serum or Plasma [id number] [facility] Cholesterol [Mass/volume] in Serum or PlasmaOrdered By: Delano Francis on 09-22-2024 Cholesterol [Mass/Vol] 217 mg/dL High 140-200 [facility] Comment on above: Chol less than 200 m g/dl low riskChol 201-239 mg/dl borderline riskChol 240 mg/dl and greater high risk Result Comment: Chol less than 200 mg/dl low risk Chol 201-239 mg/dl borderline risk Chol 240 mg/dl and greater high risk Performed By: #### D HEAS, LC T4, [id number], SEROTON, TEST F + T, T3R, THYGLOB AB, ESTRADIOL, TPO, SHBG, ESTRONE, INSULIN, PROG #### [facility] , #### T4F, TRISTEN, TSH3, A1C WTH eA, FILIBERTO, GLU, T3F #### [facility] [address] [place] [id number] [facility] Cholesterol [Mass/Vol] Cholesterol [Mass/volume] in Serum or Plasma High 140-200 [facility] Comment on above: Chol less than 200 m g/dl low riskChol 201-239 mg/dl borderline riskChol 240 mg/dl and greater high risk Cholesterol in HDL [Mass/vol ume] in Serum or PlasmaOrdered By: Delano Francis on 09-22-2024 Cholesterol in HDL [Mass/Vol] Serum or plasma high density lipoprotein (HDL) cholesterol measurement [facility] Comment on above: HDL CHOL ATP-III CLA SSIFICATION Cardiovascular RiskHDL > or equal to 60 mg/dL LOWHDL < 40 mg/dL HIGH Cholesterol in LDL Calc [Mas s/Vol]Ordered By: Delano Francis on 09-22-2024 Cholesterol in LDL [Mass/Vol] 148 mg/dL High 0-100 [facility] Comment on above: LDL ATP III CLASSIFI CATIONLDL less than 100 mg/dL OptimalLDL 100-129 mg/dL Near or above optimalLDL 130-159 mg/dL Borderline highLDL 160-189 mg/dL HighLDL greater than 189 mg/dL Very high Cholesterol in LDL [Mass/Vol] Cholesterol in LDL [Mass/volume] in Serum or Plasma by calculation High 0-100 [facility] Comment on above: LDL ATP III CLASSIFI CATIONLDL less than 100 mg/dL OptimalLDL 100-129 mg/dL Near or above optimalLDL 130-159 mg/dL Borderline highLDL 160-189 mg/dL HighLDL greater than 189 mg/dL Very high Cholesterol in VLDL Calc [Ma ss/Vol]Ordered By: Delano Francis on 09-22-2024 Cholesterol in VLDL [Mass/Vol] 10 mg/dL [facility] Cholesterol in VLDL [Mass/Vol] Cholesterol in VLDL [Mass/volume] in Serum or Plasma by calculation [facility] Creatinine [Mass/volume] in Serum or PlasmaOrdered By: Delano Francis on 09-22-2024 Creatinine [Mass/Vol] 0.73 mg/dL Normal 0.60-1.20 [facility] Comment on above: Performed By: #### D JOSSE NATHAN T4, [id number], SEROTON, TEST F + T, T3R, THYGLOB AB, ESTRADIOL, TPO, SHBG, ESTRONE, INSULIN, PROG #### [facility] , #### T4F, TRISTEN, TSH3, A1C WTH eA, FILIBERTO, GLU, T3F #### [address] Creatinine [Mass/Vol] Creatinine [Mass/v olume] in Serum or Plasma 0.60-1.20 [facility] Employee Basic Metabolic Olvera anastacio 09-22-2024 GFR/1.73 sq M.predicted MDRD (S/P/Bld) [Vol rate/Area] mL/min/{1.73_m2} Normal [facility] Comment on above: Performed By: #### D HEAS, LC T4, [id number], SEROTON, TEST F + T, T3R, THYGLOB AB, ESTRADIOL, TPO, SHBG, ESTRONE, INSULIN, PROG #### [facility] , #### T4F, TRISTEN, TSH3, A1C WTH eA, FILIBERTO, GLU, T3F #### [address] Employee Complete Blood Coun [facility] 09-22-2024 Mean Corpuscular HGB Conc 34.2 g/dL Normal 32.0-35.0 [facility] Comment on above: Performed By: #### D HEAS, LC T4, [id number], SEROTON, TEST F + T, T3R, THYGLOB AB, ESTRADIOL, TPO, SHBG, ESTRONE, INSULIN, PROG #### [facility] , #### T4F, TRISTEN, TSH3, A1C WTH eA, FILIBERTO, GLU, T3F #### [address] NRBC% 0.0 /100{WBC} Normal 0-0.5 [facility] Comment on above: Performed By: #### D HEAS, LC T4, [id number], SEROTON, TEST F + T, T3R, THYGLOB AB, ESTRADIOL, TPO, SHBG, ESTRONE, INSULIN, PROG #### [facility] , #### T4F, TRISTEN, TSH3, A1C WTH eA, FILIBERTO, GLU, T3F #### [address] Employee Lipid Profileon LDL Cholesterol,Calculated 148 mg/dL High 0-100 [facility] Comment on above: Result Comment: LDL ATP III CLASSIFICATION LDL less than 100 mg/dL Optimal LDL 100-129 mg/dL Near or above optimal LDL 130-159 mg/dL Borderline high LDL 160-189 mg/dL High LDL greater than 189 mg/dL Very high Performed By: #### D DANIELLEAS, LC T4, [id number], SEROTON, TEST F + T, T3R, THYGLOB AB, ESTRADIOL, TPO, SHBG, ESTRONE, INSULIN, PROG #### [facility] , #### T4F, TRISTEN, TSH3, A1C WTH eA, FILIBERTO, GLU, T3F #### [address] Triglyceride w/Reflex 52 mg/dL Normal 0-149 [facility] Comment on above: Result Comment: TRIG ATP III CLASSIFICATION TRIG less than 150 mg/dL Normal TRIG 150-199 mg/dL Borderline high TRIG 200-500 mg/dL High TRIG greater than 500 mg/dL Very high Standard traceable to the Center for Disease Conrtrol and Prevention (CDC) test method. Performed By: #### D DANIELLEAS, LC T4, [id number], SEROTON, TEST F + T, T3R, THYGLOB AB, ESTRADIOL, TPO, SHBG, ESTRONE, INSULIN, PROG #### [facility] , #### T4F, TRISTEN, TSH3, A1C WTH eA, FILIBERTO, GLU, T3F #### [address] VLDL CHOLESTEROL 10 mg/dL Normal [facility] Comment on above: Performed By: #### D HEAS, LC T4, [id number], SEROTON, TEST F + T, T3R, THYGLOB AB, ESTRADIOL, TPO, SHBG, ESTRONE, INSULIN, PROG #### [facility] , #### T4F, TRISTEN, TSH3, A1C WTH eA, FILIBERTO, GLU, T3F #### [address] Employee Thyroid Stim Horm[employer] lonnie 09-22-2024 Employee Thyroid Stim Hormone 2.30 u[iU]/mL Normal 0.45-5.33 [facility] Comment on above: Result Comment: PERF ORMED BY: [place] [address] PATHOLOGIST MEDICAL PAYMENT POSTER JOSE GOEL M.D. Performed By: #### D HEAS, LC T4, [id number], SEROTON, TEST F + T, T3R, THYGLOB AB, ESTRADIOL, TPO, SHBG, ESTRONE, INSULIN, PROG #### [facility] , #### T4F, TRISTEN, TSH3, A1C WTH eA, FILIBERTO, GLU, T3F #### [facility] [address] [place] [address] Eosinophils Auto (Bld) [#/Vo l]Ordered By: Delano Francis on 09-22-2024 Eosinophils (Bld) [#/Vol] Automated eosinophil count 0.0-0.45 [facility] Eosinophils/100 WBC Auto (Bl d)Ordered By: Delano Francis on 09-22-2024 Eosinophils/100 WBC (Bld) Automated eosinophil % . [facility] Erythrocyte distribution wid th Auto (RBC) [Ratio]Ordered By: Delano Francis on 09-22-2024 Erythrocyte distribution width (RBC) [Ratio] Erythrocyte distribution width [Ratio] by Automated count 11.9-15.3 [facility] Erythrocyte distribution wid th [Ratio] by Automated countOrdered By: Delano Francis on 09-22-2024 Erythrocyte distribution width (RBC) [Ratio] 13.2 % Normal 11.9-15.3 [facility] Comment on above: Performed By: #### D HEAS, LC T4, [id number], SEROTON, TEST F + T, T3R, THYGLOB AB, ESTRADIOL, TPO, SHBG, ESTRONE, INSULIN, PROG #### [facility] , #### T4F, TRISTEN, TSH3, A1C WTH eA, FILIBERTO, GLU, T3F #### [facility] [address] [place] [address] [place] Erythrocytes [#/volume] in B lood by Automated countOrdered By: Delano Francis on 09-22-2024 RBC (Bld) [#/Vol] 3.91 10*6/uL Normal 3.60-5.00 [facility] Comment on above: Performed By: #### D HEAS, LC T4, [id number], SEROTON, TEST F + T, T3R, THYGLOB AB, ESTRADIOL, TPO, SHBG, ESTRONE, INSULIN, PROG #### [facility] , #### T4F, TRISTEN, TSH3, A1C WTH eA, FILIBERTO, GLU, T3F #### [facility] [address] [place] [address] [place] Glucose [Mass/volume] in Ser um or PlasmaOrdered By: Delano Francis on 09-22-2024 Glucose [Mass/Vol] 83 mg/dL Normal 70-100 [facility] Comment on above: Performed By: #### D HEAS, LC T4, [id number], SEROTON, TEST F + T, T3R, THYGLOB AB, ESTRADIOL, TPO, SHBG, ESTRONE, INSULIN, PROG #### [facility] , #### T4F, TRISTEN, TSH3, A1C WTH eA, FILIBERTO, GLU, T3F #### [facility] [address] [place] [address] [place] Glucose [Mass/Vol] Glucose [Mass/volume ] in Serum or Plasma 70-100 [facility] Hematocrit Auto (Bld) [Volum e fraction]Ordered By: Delano Francis on 09-22-2024 Hematocrit (Bld) [Volume fraction] Hematocrit [Volume Fraction] of Blood by Automated count 34.0-46.4 [facility] Hematocrit [Volume Fraction] of Blood by Automated countOrdered By: Delano Francis on 09-22-2024 Hematocrit (Bld) [Volume fraction] 35.9 % Normal 34.0-46.4 [facility] Comment on above: Performed By: #### D HEAS, LC T4, [id number], SEROTON, TEST F + T, T3R, THYGLOB AB, ESTRADIOL, TPO, SHBG, ESTRONE, INSULIN, PROG #### [facility] , #### T4F, TRISTEN, TSH3, A1C WTH eA, FILIBERTO, GLU, T3F #### [facility] [address] Hemoglobin [Mass/volume] in BloodOrdered By: Delano Francis on 09-22-2024 Hemoglobin (Bld) [Mass/Vol] 12.3 g/dL Normal 11.8-15.4 [facility] Comment on above: Performed By: #### D HEAS, LC T4, [id number], SEROTON, TEST F + T, T3R, THYGLOB AB, ESTRADIOL, TPO, SHBG, ESTRONE, INSULIN, PROG #### [facility] , #### T4F, TRISTEN, TSH3, A1C WTH eA, FILIBERTO, GLU, T3F #### [facility] [address] [place] [address] [place] Hemoglobin (Bld) [Mass/Vol] Hemoglobin [Mass/volume] in Blood 11.8-15.4 [facility] Leukocytes [#/volume] correc calvin for nucleated erythrocytes in Blood by Automated counOrdered By: Delano Francis on 09-22-2024 WBC corrected for nucl RBC Auto (Bld) [#/Vol] 5.1 10*3/uL 3.8-11.6 [facility] WBC corrected for nucl RBC Auto (Bld) [#/Vol] Leukocytes [#/volume] corrected for nucleated erythrocytes in Blood by Automated coun 3.8-11.6 [facility] Leukocytes [#/volume] in Blo od by Automated countOrdered By: Delano Francis on 09-22-2024 WBC (Bld) [#/Vol] 5.1 10*3/uL Normal 3.8-11.6 [facility] Comment on above: Performed By: #### D HEAS, LC T4, [id number], SEROTON, TEST F + T, T3R, THYGLOB AB, ESTRADIOL, TPO, SHBG, ESTRONE, INSULIN, PROG #### [facility] , #### T4F, TRISTEN, TSH3, A1C WTH eA, FILIBERTO, GLU, T3F #### [facility] [address] Lymphocytes Auto (Bld) [#/Vo l]Ordered By: Delano Francis on 09-22-2024 Lymphocytes (Bld) [#/Vol] Lymphocytes [#/volume] in Blood by Automated count 1.00-4.8 [facility] Lymphocytes [#/volume] in Bl ood by Automated countOrdered By: Delano Francis on 09-22-2024 Lymphocytes (Bld) [#/Vol] 1.3 10*3/uL Normal 1.00-4.8 [facility] Comment on above: Performed By: #### D HEAS, LC T4, [id number], SEROTON, TEST F + T, T3R, THYGLOB AB, ESTRADIOL, TPO, SHBG, ESTRONE, INSULIN, PROG #### [facility] , #### T4F, TRISTEN, TSH3, A1C WTH eA, FILIBERTO, GLU, T3F #### [facility] [address] [place] [address] [place] Lymphocytes/100 WBC Auto (Bl d)Ordered By: Delano Francis on 09-22-2024 Lymphocytes/100 WBC (Bld) Lymphocytes/100 leukocytes in Blood by Automated count . [facility] Lymphocytes/100 leukocytes i n Blood by Automated countOrdered By: Delano Francis on 09-22-2024 Lymphocytes/100 WBC (Bld) 25.3 % Normal . [facility] Comment on above: Performed By: #### D HEAS, LC T4, [id number], SEROTON, TEST F + T, T3R, THYGLOB AB, ESTRADIOL, TPO, SHBG, ESTRONE, INSULIN, PROG #### [facility] , #### T4F, TRISTEN, TSH3, A1C WTH eA, FILIBERTO, GLU, T3F #### [facility] [address] MCH Auto (RBC) [Entitic mass ]Ordered By: Delano Francis on 09-22-2024 MCH (RBC) [Entitic mass] MCH [Entitic mass] by Automated count 24.7-34.3 [facility] MCH [Entitic mass] by Automa calvin countOrdered By: Delano Francis on 09-22-2024 MCH (RBC) [Entitic mass] 31.4 pg Normal 24.7-34.3 [facility] Comment on above: Performed By: #### D HEAS, LC T4, [id number], SEROTON, TEST F + T, T3R, THYGLOB AB, ESTRADIOL, TPO, SHBG, ESTRONE, INSULIN, PROG #### [facility] , #### T4F, TRISTEN, TSH3, A1C WTH eA, FILIBERTO, GLU, T3F #### [facility] [address] [place] [address] MCHC Auto (RBC) [Mass/Vol]Or dered By: Delano Francis on 09-22-2024 MCHC (RBC) [Mass/Vol] 34.2 g/dL 32.0-35.0 [facility] MCHC (RBC) [Mass/Vol] MCHC [Mass/volume] by Automated count 32.0-35.0 [facility] MCV Auto (RBC) [Entitic vol] Ordered By: Delano Francis on 09-22-2024 MCV (RBC) [Entitic vol] MCV [Entitic vol ume] by Automated count 80-100 [facility] MCV [Entitic volume] by Auto mated countOrdered By: Delano Francis on 09-22-2024 MCV (RBC) [Entitic vol] 91.7 fL Normal 80-100 [facility] Comment on above: Performed By: #### D HEAS, LC T4, [id number], SEROTON, TEST F + T, T3R, THYGLOB AB, ESTRADIOL, TPO, SHBG, ESTRONE, INSULIN, PROG #### [facility] , #### T4F, TRISTEN, TSH3, A1C WTH eA, FILIBERTO, GLU, T3F #### [facility] [address] Monocytes Auto (Bld) [#/Vol] Ordered By: Delano Francis on 09-22-2024 Monocytes (Bld) [#/Vol] Automated blood monocyte count 0.0-0.8 [facility] Monocytes/100 WBC Auto (Bld) Ordered By: Delano Francis on 09-22-2024 Monocytes/100 WBC (Bld) Automated monocyte % . [facility] Neutrophils Auto (Bld) [#/Vo l]Ordered By: Delano Francis on 09-22-2024 Neutrophils (Bld) [#/Vol] Neutrophils [#/volume] in Blood by Automated count 1.8-7.7 [facility] Neutrophils [#/volume] in Bl ood by Automated countOrdered By: Delano Francis on 09-22-2024 Neutrophils (Bld) [#/Vol] 3.2 10*3/uL Normal 1.8-7.7 [facility] Comment on above: Performed By: #### D HEAS, LC T4, [id number], SEROTON, TEST F + T, T3R, THYGLOB AB, ESTRADIOL, TPO, SHBG, ESTRONE, INSULIN, PROG #### [facility] , #### T4F, TRISTEN, TSH3, A1C WTH eA, FILIBERTO, GLU, T3F #### [facility] [address] Neutrophils/100 WBC Auto (Bl d)Ordered By: Delano Francis on 09-22-2024 Neutrophils/100 WBC (Bld) Automated neutrophil % . [facility] No Panel InformationOrdered By: Delano Francis on 09-22-2024 Estimated GFR (CKD-EPI) > 60.0 mL/Min [facility] Creatinine Clearance (Chem N/A [facility] Nucleated erythrocytes [Pres ence] in Blood by Automated countOrdered By: Delano Francis on 09-22-2024 Nucleated RBC Auto Ql (Bld) 0.0 /100{WBC} 0-0.5 [facility] Nucleated RBC Auto Ql (Bld) Nucleated erythrocytes [Presence] in Blood by Automated count 0-0.5 [facility] Platelet mean volume Auto (B ld) [Entitic vol]Ordered By: Delano Francis on 09-22-2024 Platelet mean volume (Bld) [Entitic vol] Platelet mean volume [Entitic volume] in Blood by Automated count 6.3-10.7 [facility] Platelet mean volume [Entiti c volume] in Blood by Automated countOrdered By: Delano Francis on 09-22-2024 Platelet mean volume (Bld) [Entitic vol] 7.3 fL Normal 6.3-10.7 [facility] Comment on above: Performed By: #### D HEAS, LC T4, [id number], SEROTON, TEST F + T, T3R, THYGLOB AB, ESTRADIOL, TPO, SHBG, ESTRONE, INSULIN, PROG #### [facility] , #### T4F, TRISTEN, TSH3, A1C WTH eA, FILIBERTO, GLU, T3F #### [facility] [address] [place] [address] [place] Platelets Auto (Bld) [#/Vol] Ordered By: Delano Francis on 09-22-2024 Platelets (Bld) [#/Vol] Platelets [#/vol ume] in Blood by Automated count 150-450 [facility] Platelets [#/volume] in Bloo d by Automated countOrdered By: Delano Francis on 09-22-2024 Platelets (Bld) [#/Vol] 328 10*3/uL Normal 150-450 [facility] Comment on above: Performed By: #### D HEAS, LC T4, [id number], SEROTON, TEST F + T, T3R, THYGLOB AB, ESTRADIOL, TPO, SHBG, ESTRONE, INSULIN, PROG #### [facility] , #### T4F, TRISTEN, TSH3, A1C WTH eA, FILIBERTO, GLU, T3F #### [facility] [address] [place] [address] [place] Potassium [Moles/volume] in Serum or PlasmaOrdered By: Delano Francis on 09-22-2024 Potassium [Moles/Vol] 4.5 mmol/L Normal 3.5-5.1 [facility] Comment on above: Performed By: #### D HEAS, LC T4, [id number], SEROTON, TEST F + T, T3R, THYGLOB AB, ESTRADIOL, TPO, SHBG, ESTRONE, INSULIN, PROG #### [facility] , #### T4F, TRISTEN, TSH3, A1C WTH eA, FILIBERTO, GLU, T3F #### [facility] [address] Potassium [Moles/Vol] Potassium [Moles/v olume] in Serum or Plasma 3.5-5.1 [facility] RBC Auto (Bld) [#/Vol]Ordere d By: Delano Francis on 09-22-2024 RBC (Bld) [#/Vol] Erythrocytes [#/volu me] in Blood by Automated count 3.60-5.00 [facility] Serum or plasma anion gap de terminationOrdered By: Delano Francis on 09-22-2024 Anion gap [Moles/Vol] 8.3 mmol/L Normal 6.0-15.0 [facility] Comment on above: Performed By: #### D HEAS, LC T4, [id number], SEROTON, TEST F + T, T3R, THYGLOB AB, ESTRADIOL, TPO, SHBG, ESTRONE, INSULIN, PROG #### [facility] , #### T4F, TRISTEN, TSH3, A1C WTH eA, FILIBERTO, GLU, T3F #### [facility] [address] [place] [address] Anion gap [Moles/Vol] Serum or plasma an ion gap determination 6.0-15.0 [facility] Serum or plasma high density lipoprotein (HDL) cholesterol measurementOrdered By: Delano Francis on 09-22-2024 Cholesterol in HDL [Mass/Vol] 59 mg/dL Normal 23-92 [facility] Comment on above: HDL CHOL ATP-III CLA SSIFICATION Cardiovascular RiskHDL > or equal to 60 mg/dL LOWHDL < 40 mg/dL HIGH Result Comment: HDL CHOL ATP-III CLASSIFICATION Cardiovascular Risk HDL > or equal to 60 mg/dL LOW HDL < 40 mg/dL HIGH Performed By: #### D HEAS, LC T4, [id number], SEROTON, TEST F + T, T3R, THYGLOB AB, ESTRADIOL, TPO, SHBG, ESTRONE, INSULIN, PROG #### [facility] , #### T4F, TRISTEN, TSH3, A1C WTH eA, FILIBERTO, GLU, T3F #### [facility] [address] [place] [address] Serum or plasma total choles terol/high density lipoprotein (HDL) cholesterol mass ratOrdered By: Delano Francis on 09-22-2024 Cholesterol.total/Alivia sterol in HDL [Mass ratio] 3.7 {ratio} Normal <5.0 [facility] Comment on above: Performed By: #### D VENITA, LC T4, [id number], SEROTON, TEST F + T, T3R, THYGLOB AB, ESTRADIOL, TPO, SHBG, ESTRONE, INSULIN, PROG #### [facility] , #### T4F, TRISTEN, TSH3, A1C WTH eA, FILIBERTO, GLU, T3F #### [facility] [address] [place] [address] Cholesterol.total/Alivia sterol in HDL [Mass ratio] Serum or plasma total cholesterol/high density lipoprotein (HDL) cholesterol mass rat <5.0 [facility] Sodium [Moles/volume] in Ser um or PlasmaOrdered By: Delano Francis on 09-22-2024 Sodium [Moles/Vol] 138 mmol/L Normal 136-145 [facility] Comment on above: Performed By: #### D VENITA, LC T4, [id number], SEROTON, TEST F + T, T3R, THYGLOB AB, ESTRADIOL, TPO, SHBG, ESTRONE, INSULIN, PROG #### [facility] , #### T4F, TRISTEN, TSH3, A1C WTH eA, FILIBERTO, GLU, T3F #### [facility] [address] [place] [address] Sodium [Moles/Vol] Sodium [Moles/volume ] in Serum or Plasma 136-145 [facility] Thyrotropin [Units/volume] i n Serum or PlasmaOrdered By: Delano Francis on 09-22-2024 TSH Qn 2.30 m[IU]/L 0.45-5.33 [facility] TSH Qn Thyrotropin [Units/volume] in Serum or Plasma 0.45-5.33 [facility] Triglyceride [Mass/volume] i n Serum or PlasmaOrdered By: Delano Francis on 09-22-2024 Triglyceride [Mass/Vol] 52 mg/dL 0-149 [facility] Comment on above: TRIG ATP III CLASSIF ICATIONTRIG less than 150 mg/dL NormalTRIG 150-199 mg/dL Borderline highTRIG 200-500 mg/dL High TRIG greater than 500 mg/dL Very highStandard traceable to the Center for Disease Conrtrol and Prevention (CDC) test method. Triglyceride [Mass/Vol] Triglyceride [Mass/volume] in Serum or Plasma 0-149 [facility] Comment on above: TRIG ATP III CLASSIF ICATIONTRIG less than 150 mg/dL NormalTRIG 150-199 mg/dL Borderline highTRIG 200-500 mg/dL High TRIG greater than 500 mg/dL Very highStandard traceable to the Center for Disease Conrtrol and Prevention (CDC) test method. Urea nitrogen [Mass/volume] in Serum or PlasmaOrdered By: Delano Francis on 09-22-2024 Urea nitrogen [Mass/Vol] 9 mg/dL Normal 06-23 [facility] Comment on above: Performed By: #### D HEAS, LC T4, [id number], SEROTON, TEST F + T, T3R, THYGLOB AB, ESTRADIOL, TPO, SHBG, ESTRONE, INSULIN, PROG #### [facility] , #### T4F, TRISTEN, TSH3, A1C WTH eA, FILIBERTO, GLU, T3F #### [facility] [address] Urea nitrogen [Mass/Vol] Urea nitrogen [Mass/volume] in Serum or Plasma 06-23 [facility] WBC Auto (Bld) [#/Vol]Ordere d By: Delano Francis on 09-22-2024 WBC (Bld) [#/Vol] Leukocytes [#/volume ] in Blood by Automated count 3.8-11.6 [facility] IGP,APTIMA HPV,AGE GDLNon AGE GDLN ACOG TESTING Note . [facility] Comment on above: TESTS RESULT FLAG UN ITS REF RANGE LAB Clinician Provided Cytology Information Source.............Cervix;Endocervix No. of containers..01 ThinPrep Vial Age Algo ACOG Lara... FLAG LEGEND: L-Low Normal,H-High Normal,LL-Alert Low,HH-Alert High <-Panic Low,>-Panic High,A-Abnormal,AA-Critical Abnormal Performed at: 01 = [facility] [employer] [place] [address] Ilana Heath MD, HPV APTIMA Negative Negative [facility] Comment on above: This nucleic acid am plification test detects fourteen high- risk HPV types (16,18,31,33,35,39,45,51,52,56,58,59,66,68) without differentiation. Performed at: =[facility] [employer] [id number] [place] [employer]: Ilana Heath MD, Phone: [phone] Performed at: [address] [id number] [place] [employer]: Ilana Heath MD, Phone: [phone] IGP, APTIMA HPV, RFX 16/18,45 Note . [facility] Comment on above: TESTS RESULT FLAG UN ITS REF RANGE LAB DIAGNOSIS: 02 NEGATIVE FOR INTRAEPITHELIAL LESION OR MALIGNANCY. Specimen adequacy: 02 Satisfactory for evaluation. No endocervical component is identified. Performed by: 02 Chema Camargo, Hose Mender (ASC) . 02 Note: Note 02 The Pap [...] High,A-Abnormal,AA-Critical Abnormal Performed at: 02 WB [facility] [address] [place] [address] Ilana Heath MD, BRUSH-SPATULA CERVIX ENDOCERVIX CLINISYNC [facility] [place] 1,25 Dihydroxy Vit D Calcitr olon 01-07-2024 1,25 Dihydroxy Vit D Calcitrol 56.6 pg/mL Normal 24.8-81.5 [facility] Comment on above: Result Comment: Perf ormed at: [facility] [address] [id number] Planer Hand: Quinton Wolf MD, Phone: [phone] Performed By: #### D HESUE, LC T4, [id number], SEROTON, TEST F + T, T3R, THYGLOB AB, ESTRADIOL, TPO, SHBG, ESTRONE, INSULIN, PROG #### [facility] , #### T4F, TRISTEN, TSH3, A1C WTH eA, FILIBERTO, GLU, T3F #### [facility] [address] A1C with Estimated Average G luon 01-07-2024 Glucose [Mass/Vol] 105 mg/dL Normal [facility] Comment on above: Result Comment: PERF ORMED BY: [place] [address] PATHOLOGIST MEDICAL PAYMENT POSTER JOSE GOEL M.D. Performed By: #### D VENITA, LC T4, [id number], SEROTON, TEST F + T, T3R, THYGLOB AB, ESTRADIOL, TPO, SHBG, ESTRONE, INSULIN, PROG #### [facility] , #### T4F, TRISTEN, TSH3, A1C WTH eA, FILIBERTO, GLU, T3F #### [facility] [address] Antithyroglobulin Abon 01-07 Antithyroglobulin Ab <1.0 Normal 0.0-0.9 [facility] Comment on above: Result Comment: Thyr oglobulin Antibody measured by [place] Methodology Performed at: [facility] [address] [id number] Planer Hand: Baudilio Leyva PhD, Phone: [phone] Performed By: #### D HEAS, LC T4, [id number], SEROTON, TEST F + T, T3R, THYGLOB AB, ESTRADIOL, TPO, SHBG, ESTRONE, INSULIN, PROG #### [facility] , #### T4F, TRISTEN, TSH3, A1C WTH eA, FILIBERTO, GLU, T3F #### [place] [id number] [facility] Cortisolon 01-07-2024 Cortisol 6.8 ug/dL Normal [facility] Comment on above: Result Comment: Refe rence range: AM 6 - 24 ug/dl PM <10 ug/dl [facility] plater helper and method: HELGA UNICEL DXI, POLYCLONAL ANTIBODY CORTISOL ASSAY. PERFORMED BY: [place] [address] PATHOLOGIST MEDICAL PAYMENT POSTER JOSE GOEL M.D. Performed By: #### D HEAS, LC T4, [id number], SEROTON, TEST F + T, T3R, THYGLOB AB, ESTRADIOL, TPO, SHBG, ESTRONE, INSULIN, PROG #### [facility] , #### T4F, TRISTEN, TSH3, A1C WTH eA, FILIBERTO, GLU, T3F #### [address] Dehydroepiandrosterone Sulfa teOrdered By: Deisy Villar on 01-07-2024 Dehydroepiandrosterone Sulfate 174.0 ug/dL Normal 84.8-378.0 [facility] Comment on above: Performed By: #### D HEAS, LC T4, [id number], SEROTON, TEST F + T, T3R, THYGLOB AB, ESTRADIOL, TPO, SHBG, ESTRONE, INSULIN, PROG #### [facility] , #### T4F, TRISTEN, TSH3, A1C WTH eA, FILIBERTO, GLU, T3F #### [address] Estradiolon 01-07-2024 Estradiol 300.0 pg/mL Normal . [facility] Comment on above: Result Comment: Adul t Female Range Follicular phase 12.5 - 166.0 Ovulation phase 85.8 - 498.0 Luteal phase 43.8 - 211.0 Postmenopausal <6.0 - 54.7 1st trimester 215.0 - >4300.0 Elías ECLIA methodology Performed By: #### D HEAS, LC T4, [id number], SEROTON, TEST F + T, T3R, THYGLOB AB, ESTRADIOL, TPO, SHBG, ESTRONE, INSULIN, PROG #### [facility] , #### T4F, TRISTEN, TSH3, A1C WTH eA, FILIBERTO, GLU, T3F #### [facility] [address] [place] [id number] [place] Estrone, Serumon 01-07-2024 Estrone, Serum 46 pg/mL Normal 27-231 [facility] Comment on above: Result Comment: Rang e Adult (Premenopausal) 27 - 231 Menstrual Cycle (1-10 days) 19 - 149 Menstrual Cycle (11-20 days) 32 - 176 Menstrual Cycle (21-30 days) 37 - 200 Performed at: [address] [id number] Planer Hand: Quinton Wolf MD, Phone: [phone] Performed By: #### D HEAS, LC T4, [id number], SEROTON, TEST F + T, T3R, THYGLOB AB, ESTRADIOL, TPO, SHBG, ESTRONE, INSULIN, PROG #### [facility] , #### T4F, TRISTEN, TSH3, A1C WTH eA, FILIBERTO, GLU, T3F #### [place] [id number] [facility] Ferritin [Mass/volume] in Se rum or PlasmaOrdered By: Deisy Villar on 01-07-2024 Ferritin [Mass/Vol] 44.8 ng/mL Normal 11.0-306.8 [facility] Comment on above: Performed By: #### D HEAS, LC T4, [id number], SEROTON, TEST F + T, T3R, THYGLOB AB, ESTRADIOL, TPO, SHBG, ESTRONE, INSULIN, PROG #### [facility] , #### T4F, TRISTEN, TSH3, A1C WTH eA, FILIBERTO, GLU, T3F #### [facility] [address] [place] [id number] [facility] Free testosterone measuremen t by LC-MS/MSOrdered By: Deisy Villar on 01-07-2024 Testosterone Free [Mass/Vol] 0.3 pg/mL 0.0-4.2 [facility] Comment on above: Performed at: [address] [id number] Director: Baudilio Leyva PhD, Phone: [phone] at: - [facility] [address] [id number] Director: Quinton Wolf MD, Phone: [phone] Glucose [Mass/volume] in Ser um or PlasmaOrdered By: Deisy Villar on 01-07-2024 Glucose [Mass/Vol] 84 mg/dL Normal 70-100 [facility] Comment on above: ADA recommended refe rence rangeRandom Glucose Reference Range is dependent on time and content of last meal. Glucose of more than 200 mg/dL in a nonstressed, ambulatory subject supports the diagnosis of Diabetes Mellitus. Result Comment: [place] om Glucose Reference Range is dependent on time and content of last meal. Glucose of more than 200 mg/dL in a nonstressed, ambulatory subject supports the diagnosis of Diabetes Mellitus. ADA recommended reference range Performed By: #### D HEAS, LC T4, [id number], SEROTON, TEST F + T, T3R, THYGLOB AB, ESTRADIOL, TPO, SHBG, ESTRONE, INSULIN, PROG #### [facility] , #### T4F, TRISTEN, TSH3, A1C WTH eA, FILIBERTO, GLU, T3F #### [address] Glucose mean value [Mass/vol ume] in Blood Estimated from glycated hemoglobinOrdered By: Deisy Villar on 01-07-2024 Average glucose Estimated from glycated hemoglobin (Bld) [Mass/Vol] 105 mg/dL [facility] Hemoglobin A1c percentageOrd ered By: Deisy Villar on 01-07-2024 HbA1c (Bld) [Mass fraction] 5.3 % Normal 4.3-5.6 [facility] Comment on above: Increased risk for d iabetes: 5.7 - 6.4diabetes: >6.4glycemic control for adults with diabetes: <7.0 Result Comment: Incr eased risk for diabetes: 5.7 - 6.4 diabetes: >6.4 glycemic control for adults with diabetes: <7.0 Performed By: #### D HEAS, LC T4, [id number], SEROTON, TEST F + T, T3R, THYGLOB AB, ESTRADIOL, TPO, SHBG, ESTRONE, INSULIN, PROG #### [facility] , #### T4F, TRISTEN, TSH3, A1C WTH eA, FILIBERTO, GLU, T3F #### [address] Insulinon 01-07-2024 Insulin 4.5 u[iU]/mL Normal 2.6-24.9 [facility] Comment on above: Result Comment: Perf ormed at: - [facility] [address] [id number] Planer Hand: Baudilio Leyva PhD, Phone: [phone] Performed By: #### D HEAS, LC T4, [id number], SEROTON, TEST F + T, T3R, THYGLOB AB, ESTRADIOL, TPO, SHBG, ESTRONE, INSULIN, PROG #### [facility] , #### T4F, TRISTEN, TSH3, A1C WTH eA, FILIBERTO, GLU, T3F #### [address] [facility] Thyroxine (T4)on T4 [Mass/Vol] 8.2 ug/dL Normal 4.5-12.0 [facility] Comment on above: Performed By: #### D HEAS, LC T4, [id number], SEROTON, TEST F + T, T3R, THYGLOB AB, ESTRADIOL, TPO, SHBG, ESTRONE, INSULIN, PROG #### [facility] , #### T4F, TRISTEN, TSH3, A1C WTH eA, FILIBERTO, GLU, T3F #### [address] No Panel InformationOrdered By: Deisy Villar on 01-07-2024 Free Thyroxine (T4) Direct 8.2 ug/dL 4.5-12.0 [facility] Reverse Triiodothyronine (T3) 18.9 ng/dL 9.2-24.1 [facility] Comment on above: This test was develo ped and its performance characteristicsdetermined by [facility]. It has not been cleared orapproved by the Food and Drug Administration.Performed at: [address] [id number] Director: Quinton Wolf MD, Phone: [phone] Sex Hormone Binding Globulin 95.4 nmol/L 24.6-122.0 [facility] Comment on above: Performed at: [address] [id number] Director: Baudilio Leyva PhD, Phone: [phone] Plasma serotonin measurement (mass/volume)Ordered By: Deisy Villar on 01-07-2024 Serotonin (P) [Mass/Vol] 71 ng/mL [facility] Comment on above: This test was develo ped and its performance characteristicsdetermined by [employer] [employer]. It has not been cleared orapproved by the Food and Drug Administration.Performed at: [address] [id number] Director: Quinton Wolf MD, Phone: [phone] Progesteroneon 01-07-2024 Progesterone 0.2 ng/mL Normal . [facility] Comment on above: Result Comment: Foll icular phase 0.1 - 0.9 Luteal phase 1.8 - 23.9 Ovulation phase 0.1 - 12.0 First trimester 11.0 - 44.3 Second trimester 25.4 - 83.3 Third trimester 58.7 - 214.0 Postmenopausal 0.0 - 0.1 Performed By: #### D HEAS, LC T4, [id number], SEROTON, TEST F + T, T3R, THYGLOB AB, ESTRADIOL, TPO, SHBG, ESTRONE, INSULIN, PROG #### [facility] , #### T4F, TRISTEN, TSH3, A1C WTH eA, FILIBERTO, GLU, T3F #### [facility] [address] [place], [place] [id number] [facility] Random cortisol measurementO rdered By: Deisy Villar on 01-07-2024 Cortisol [Mass/Vol] 6.8 ug/dL [facility] Comment on above: [facility] plater helper and method:HELGA UNICEL DXI, POLYCLONAL ANTIBODY CORTISOL ASSAY.Reference range: AM 6 - 24 ug/dl PM <10 ug/dl Serotonin, Serumon 4 Serotonin, Serum 71 ng/mL Normal 31-207 [facility] Comment on above: Result Comment: This test was developed and its performance characteristics determined by [employer]. It has not been cleared or approved by the Food and Drug Administration. Performed at: [facility] [employer] [id number] Planer Hand: Quinton Wolf MD, Phone: [phone] PERFORMED BY: [place] [address] PATHOLOGIST MEDICAL PAYMENT POSTER JOSE GOEL M.D. Performed By: #### D HEAS, LC T4, [id number], SEROTON, TEST F + T, T3R, THYGLOB AB, ESTRADIOL, TPO, SHBG, ESTRONE, INSULIN, PROG #### [facility] , #### T4F, TRISTEN, TSH3, A1C WTH eA, FILIBERTO, GLU, T3F #### [place] [id number] [facility] Serum estrone measurementOrd ered By: Deisy Villar on 01-07-2024 E1 [Mass/Vol] 46 pg/mL 27-231 [facility] Comment on above: Range Adult (Premeno pausal) 27 - 231 Menstrual Cycle (1-10 days) 19 - 149 Menstrual Cycle (11-20 days) 32 - 176 Menstrual Cycle (21-30 days) 37 - 200Performed at: [facility] [employer] [id number] Director: Quinton Wolf MD, Phone: [phone] Serum or plasma calcitriol m easurement (mass/volume)Ordered By: Deisy Villar on 01-07-2024 1,25-dihydroxyvitamin D3 [Mass/Vol] 56.6 pg/mL 24.8-81.5 [facility] Comment on above: Performed at: - L [employer] [id number] [place], [place] [id number] Director: Quinton Wolf MD, Phone: [phone] Serum or plasma estradiol (E 2) measurement (mass/volume)Ordered By: Deisy Villar on 01-07-2024 E2 [Mass/Vol] 300.0 pg/mL . [facility] Comment on above: Adult Female Range F ollicular phase 12.5 - 166.0 Ovulation phase 85.8 - 498.0 Luteal phase 43.8 - 211.0 Postmenopausal <6.0 - 54.7 1st trimester 215.0 - >4300.0Roche ECLIA methodology Serum or plasma insulin kevin urement (units/volume)Ordered By: Deisy Villar on 01-07-2024 Insulin Qn 4.5 u[iU]/mL 2.6-24.9 [facility] Comment on above: Performed at: [employer] [address] [id number] Director: Baudilio Leyva PhD, Phone: [phone] Serum or plasma progesterone measurement (mass/volume)Ordered By: Deisy Villar on 01-07-2024 Progesterone [Mass/Vol] 0.2 ng/mL . [facility] Comment on above: Follicular phase 0.1 [...] above: Thyroglobulin Antibo dy measured by Hel[employer] Harbor TechnologiesMethodologyPerformed at: [employer] [facility] [address] [id number] Director: Baudilio Leyva PhD, Phone: [phone] Serum or plasma thyroperoxid ase antibody assay (units/volume)Ordered By: Deisy Villar on 01-07-2024 TPO Ab Qn [IU]/mL 0-34 [facility] Comment on above: Performed at: [address] [id number] Director: Baudilio Leyva PhD, Phone: [phone] Sex Hormone Binding Globulin on 01-07-2024 Sex Hormone Binding Globulin 95.4 Normal 24.6-122.0 [facility] Comment on above: Result Comment: Perf ormed at: [facility] [employer] [id number] Planer Hand: Baudilio Leyva PhD, Phone: [phone] Performed By: #### D VENITA, LC T4, [id number], SEROTON, TEST F + T, T3R, THYGLOB AB, ESTRADIOL, TPO, SHBG, ESTRONE, INSULIN, PROG #### [facility] , #### T4F, TRISTEN, TSH3, A1C WTH eA, FILIBERTO, GLU, T3F #### [facility] [address] Testosterone Free and TotalO rdered By: Deisy Villar on 01-07-2024 Testosterone [Mass/Vol] 16 ng/dL Normal 8-60 [facility] Comment on above: Performed By: #### D VENITA, LC T4, [id number], SEROTON, TEST F + T, T3R, THYGLOB AB, ESTRADIOL, TPO, SHBG, ESTRONE, INSULIN, PROG #### [facility] , #### T4F, TRISTEN, TSH3, A1C WTH eA, FILIBERTO, GLU, T3F #### [facility] [address] [place] [address] [place] Testosterone Free and Totalo n 01-07-2024 Testosterone,Free 0.3 pg/mL Normal 0.0-4.2 [facility] Comment on above: Result Comment: Perf ormed at: [facility] [employer] [id number] Planer Hand: Baudilio Leyva PhD, Phone: [phone] Performed at: BN - [facility] [id number] Planer Hand: Quinton Wolf MD, Phone: [phone] Performed By: #### D VENITA, LC T4, [id number], SEROTON, TEST F + T, T3R, THYGLOB AB, ESTRADIOL, TPO, SHBG, ESTRONE, INSULIN, PROG #### [facility] , #### T4F, TRISTEN, TSH3, A1C WTH eA, FILIBERTO, GLU, T3F #### [address] Thyroid Peroxidase Antibodie son 01-07-2024 Thyroid Peroxidase Antibodies <9 Normal 0-34 [facility] Comment on above: Result Comment: Perf ormed at: [facility] [id number] Planer Hand: Baudilio Leyva PhD, Phone: [phone] Performed By: #### D VENITA, LC T4, [id number], SEROTON, TEST F + T, T3R, THYGLOB AB, ESTRADIOL, TPO, SHBG, ESTRONE, INSULIN, PROG #### [facility] , #### T4F, TRISTEN, TSH3, A1C WTH eA, FILIBERTO, GLU, T3F #### [place] [address] [place] Thyrotropin [Units/volume] i n Serum or PlasmaOrdered By: Deisy Villar on 01-07-2024 TSH Qn 1.80 m[IU]/L Normal 0.45-5.33 [facility] Comment on above: Performed By: #### D VENITA, LC T4, [id number], SEROTON, TEST F + T, T3R, THYGLOB AB, ESTRADIOL, TPO, SHBG, ESTRONE, INSULIN, PROG #### [facility] , #### T4F, TRISTEN, TSH3, A1C WTH eA, FILIBERTO, GLU, T3F #### [address] Thyroxine (T4) free [Mass/vo lume] in Serum or PlasmaOrdered By: Deisy Villar on 01-07-2024 Free T4 [Mass/Vol] 0.88 ng/dL Normal 0.61-1.12 [facility] Comment on above: Performed By: #### D VENITA, LC T4, [id number], SEROTON, TEST F + T, T3R, THYGLOB AB, ESTRADIOL, TPO, SHBG, ESTRONE, INSULIN, PROG #### [facility] , #### T4F, TRISTEN, TSH3, A1C WTH eA, FILIBERTO, GLU, T3F #### [facility] [address] Triiodothyronine (T3) Freeon 01-07-2024 Triiodothyronine (T3) Free 3.90 pg/mL Normal 2.50-3.90 [facility] Comment on above: Result Comment: PERF ORMED BY: [place] [address] PATHOLOGIST MEDICAL PAYMENT POSTER JOSE GOEL M.D. Performed By: #### D VENITA, LC T4, [id number], SEROTON, TEST F + T, T3R, THYGLOB AB, ESTRADIOL, TPO, SHBG, ESTRONE, INSULIN, PROG #### [facility] , #### T4F, TRISTEN, TSH3, A1C WT eA, FILIBERTO, GLU, T3F #### [facility] [address] [place] [id number] [facility] Triiodothyronine (T3) Free [ Mass/volume] in Serum or PlasmaOrdered By: Deisy Villar on 01-07-2024 Free T3 [Mass/Vol] 3.90 pg/mL 2.50-3.90 [facility] Triiodothyronine (T3) Revers lonnie 01-07-2024 Triiodothyronine (T3) Reverse 18.9 ng/dL Normal 9.2-24.1 [facility] Comment on above: Result Comment: This test was developed and its performance characteristics determined by [facility]. It has not been cleared or approved by the Food and Drug Administration. Performed at: [place] [id number] Planer Hand: Quinton Wolf MD, Phone: [phone] Performed By: #### D HESUE, JOSSE T4, [id number], SEROTON, TEST F + T, T3R, THYGLOB AB, ESTRADIOL, TPO, SHBG, ESTRONE, INSULIN, PROG #### [facility] , #### T4F, TRISTEN, TSH3, A1C WTH eA, FILIBERTO, GLU, T3F #### [facility] [address] Alanine aminotransferase [En zymatic activity/volume] in Serum or PlasmaOrdered By: Delano Francis on 09-17-2023 ALT [Catalytic activity/Vol] 20 U/L 7-52 [facility] Albumin [Mass/volume] in Ser um or Plasma by Bromocresol green (BCG) dye binding methoOrdered By: Delano Francis on 09-17-2023 Albumin BCG dye [Mass/Vol] 4.3 g/dL 3.5-5.7 [facility] Alkaline phosphatase [Enzyma tic activity/volume] in Serum or PlasmaOrdered By: Delano Francis on 09-17-2023 ALP [Catalytic activity/Vol] 62 U/L 34-104 [facility] Aspartate aminotransferase [ Enzymatic activity/volume] in Serum or PlasmaOrdered By: Delano Francis on 09-17-2023 AST [Catalytic activity/Vol] 22 U/L 13-39 [facility] Basophils Auto (Bld) [#/Vol] Ordered By: Delano Francis on 09-17-2023 Basophils (Bld) [#/Vol] 0.0 10*3/uL 0.0-0.2 [facility] Basophils/100 WBC Auto (Bld) Ordered By: Delano Francis on 09-17-2023 Basophils/100 WBC (Bld) 0.4 % . [facility] Bilirubin.total [Mass/volume ] in Serum or PlasmaOrdered By: Delano Francis on 09-17-2023 Bilirubin [Mass/Vol] 0.7 mg/dL 0.3-1.0 [facility] Calcium [Mass/volume] in Ser um or PlasmaOrdered By: Delano Francis on 09-17-2023 Calcium [Mass/Vol] 9.4 mg/dL 8.6-10.3 [facility] Carbon dioxide, total [Moles /volume] in Serum or PlasmaOrdered By: Delano Francis on 09-17-2023 CO2 [Moles/Vol] 26.2 mmol/L 21.0-31.0 [facility] Chloride [Moles/volume] in S stevo or PlasmaOrdered By: Delano Francis on 09-17-2023 Chloride [Moles/Vol] 102 mmol/L 98-107 [facility] Cholesterol [Mass/volume] in Serum or PlasmaOrdered By: Delano Francis on 09-17-2023 Cholesterol [Mass/Vol] 214 mg/dL 140-200 [facility] Comment on above: Chol less than 200 m g/dl low riskChol 201-239 mg/dl borderline riskChol 240 mg/dl and greater high risk Cholesterol in LDL Calc [Mas s/Vol]Ordered By: Delano Francis on 09-17-2023 Cholesterol in LDL [Mass/Vol] 161 mg/dL 0-100 [facility] Comment on above: LDL ATP III CLASSIFI CATIONLDL less than 100 mg/dL OptimalLDL 100-129 mg/dL Near or above optimalLDL 130-159 mg/dL Borderline highLDL 160-189 mg/dL HighLDL greater than 189 mg/dL Very high Cholesterol in VLDL Calc [Ma ss/Vol]Ordered By: Delano Francis on 09-17-2023 Cholesterol in VLDL [Mass/Vol] 9 mg/dL [facility] Creatinine [Mass/volume] in Serum or PlasmaOrdered By: Delano Francis on 09-17-2023 Creatinine [Mass/Vol] 0.79 mg/dL 0.60-1.20 [facility] Eosinophils Auto (Bld) [#/Vo l]Ordered By: Delano Francis on 09-17-2023 Eosinophils (Bld) [#/Vol] 0.1 10*3/uL 0.0-0.45 [facility] Eosinophils/100 WBC Auto (Bl d)Ordered By: Delano Francis on 09-17-2023 Eosinophils/100 WBC (Bld) 0.9 % . [facility] Erythrocyte distribution wid th Auto (RBC) [Ratio]Ordered By: Delano Francis on 09-17-2023 Erythrocyte distribution width (RBC) [Ratio] 12.4 % 11.9-15.3 [facility] Globulin Calc (S) [Mass/Vol] Ordered By: Delano Francis on 09-17-2023 Globulin (S) [Mass/Vol] 2.5 g/dL [facility] Glucose [Mass/volume] in Ser um or PlasmaOrdered By: Delano Francis on 09-17-2023 Glucose [Mass/Vol] 75 mg/dL 70-100 [facility] Hematocrit Auto (Bld) [Volum e fraction]Ordered By: Delano Francis on 09-17-2023 Hematocrit (Bld) [Volume fraction] 34.2 % 34.0-46.4 [facility] Hemoglobin [Mass/volume] in BloodOrdered By: Delano Francis on 09-17-2023 Hemoglobin (Bld) [Mass/Vol] 11.8 g/dL 11.8-15.4 [facility] Leukocytes [#/volume] correc calvin for nucleated erythrocytes in Blood by Automated counOrdered By: Delano Francis on 09-17-2023 WBC corrected for nucl RBC Auto (Bld) [#/Vol] 5.9 10*3/uL 3.8-11.6 [facility] Lymphocytes Auto (Bld) [#/Vo l]Ordered By: Delano Francis on 09-17-2023 Lymphocytes (Bld) [#/Vol] 1.8 10*3/uL 1.00-4.8 [facility] Lymphocytes/100 WBC Auto (Bl d)Ordered By: Delano Francis on 09-17-2023 Lymphocytes/100 WBC (Bld) 30.5 % . [facility] MCH Auto (RBC) [Entitic mass ]Ordered By: Delano Francis on 09-17-2023 MCH (RBC) [Entitic mass] 31.8 pg 24.7-34.3 [facility] MCHC Auto (RBC) [Mass/Vol]Or dered By: Delano Francis on 09-17-2023 MCHC (RBC) [Mass/Vol] 34.4 g/dL 32.0-35.0 [facility] MCV Auto (RBC) [Entitic vol] Ordered By: Delano Francis on 09-17-2023 MCV (RBC) [Entitic vol] 92.5 fL 80-100 [facility] Monocytes Auto (Bld) [#/Vol] Ordered By: Delano Francis on 09-17-2023 Monocytes (Bld) [#/Vol] 0.5 10*3/uL 0.0-0.8 [facility] Monocytes/100 WBC Auto (Bld) Ordered By: Delano Francis on 09-17-2023 Monocytes/100 WBC (Bld) 9.2 % . [facility] Neutrophils Auto (Bld) [#/Vo l]Ordered By: Delano Francis on 09-17-2023 Neutrophils (Bld) [#/Vol] 3.5 10*3/uL 1.8-7.7 [facility] Neutrophils/100 WBC Auto (Bl d)Ordered By: Delano Francis on 09-17-2023 Neutrophils/100 WBC (Bld) 59.0 % . [facility] No Panel InformationOrdered By: Delano Francis on 09-17-2023 Estimated GFR (CKD-EPI) > 60.0 mL/Min [facility] Creatinine Clearance (Chem N/A [facility] Nucleated erythrocytes [Pres ence] in Blood by Automated countOrdered By: Delano Francis on 09-17-2023 Nucleated RBC Auto Ql (Bld) 0.2 /100{WBC} 0-0.5 [facility] Platelet mean volume Auto (B ld) [Entitic vol]Ordered By: Delano Francis on 09-17-2023 Platelet mean volume (Bld) [Entitic vol] 8.1 fL 6.3-10.7 [facility] Platelets Auto (Bld) [#/Vol] Ordered By: Delano Francis on 09-17-2023 Platelets (Bld) [#/Vol] 250 10*3/uL 150-450 [facility] Potassium [Moles/volume] in Serum or PlasmaOrdered By: Delano Francis on 09-17-2023 Potassium [Moles/Vol] 4.0 mmol/L 3.5-5.1 [facility] Protein [Mass/volume] in Ser um or PlasmaOrdered By: Delano Francis on 09-17-2023 Protein [Mass/Vol] 6.8 g/dL 6.4-8.9 [facility] RBC Auto (Bld) [#/Vol]Ordere d By: Delano Francis on 09-17-2023 RBC (Bld) [#/Vol] 3.70 10*6/uL 3.60-5.00 [facility] Serum or plasma albumin/glob ulin mass ratioOrdered By: Delano Francis on 09-17-2023 Albumin/Globulin [Mass ratio] 1.7 {ratio} [facility] Serum or plasma anion gap de terminationOrdered By: Delano Francis on 09-17-2023 Anion gap [Moles/Vol] 10.8 mmol/L 6.0-15.0 [facility] Serum or plasma high density lipoprotein (HDL) cholesterol measurementOrdered By: Delano Francis on 09-17-2023 Cholesterol in HDL [Mass/Vol] 43 mg/dL 23-92 [facility] Comment on above: HDL CHOL ATP-III CLA SSIFICATION Cardiovascular RiskHDL > or equal to 60 mg/dL LOWHDL < 40 mg/dL HIGH Serum or plasma total choles terol/high density lipoprotein (HDL) cholesterol mass ratOrdered By: Delano Francis on 09-17-2023 Cholesterol.total/Alivia sterol in HDL [Mass ratio] 5.0 {ratio} <5.0 [facility] Sodium [Moles/volume] in Ser um or PlasmaOrdered By: Delano Francis on 09-17-2023 Sodium [Moles/Vol] 135 mmol/L 136-145 [facility] Thyrotropin [Units/volume] i n Serum or PlasmaOrdered By: Delano Francis on 09-17-2023 TSH Qn 1.04 m[IU]/L 0.45-5.33 [facility] Triglyceride [Mass/volume] i n Serum or PlasmaOrdered By: Delano Francis on 09-17-2023 Triglyceride [Mass/Vol] 48 mg/dL 0-149 [facility] Comment on above: TRIG ATP III CLASSIF ICATIONTRIG less than 150 mg/dL NormalTRIG 150-199 mg/dL Borderline highTRIG 200-500 mg/dL High TRIG greater than 500 mg/dL Very highStandard traceable to the Center for Disease Conrtrol and Prevention (CDC) test method. Urea nitrogen [Mass/volume] in Serum or PlasmaOrdered By: Delano Francis on 09-17-2023 Urea nitrogen [Mass/Vol] 7 mg/dL 7-25 [facility] WBC Auto (Bld) [#/Vol]Ordere d By: Delano Francis on 09-17-2023 WBC (Bld) [#/Vol] 5.9 10*3/uL 3.8-11.6 [facility] Mononucleosis Test, Qualon 1 Heterophile Ab LA Ql (S) Negative [email or web address] Other Quick Strepon 09-26-2022 S. pyogenes Org specific cx Ql (Throat) Negative [employer] Other Quick Strep [email or web address] Other SARS-CoV-2 (COVID-19) RNA NA A+probe Ql (Resp)on 09-26-2022 SARS-CoV-2 (COVID-19) RNA ROB+probe Ql (Unsp spec) Negative [email or web address] Other PAP ACOG PANEL 2: 30 to 65on 09-01-2022 . . Normal [facility] Comment on above: Result Comment: Perf ormed at: WB Performed By: #### [id number] #### [facility] [address] [address] [address] Zonia Zhang Age Gdln ACOG Testing 30-65 [facility] Comment on above: Performed By: #### [id number] #### [facility] [address] [address] [address] Zonia Zhang DIAGNOSIS: Comment [facility] Comment on above: Result Comment: NEGA TIVE FOR INTRAEPITHELIAL LESION OR MALIGNANCY. Performed at: WB Performed By: #### [id number] #### [facility] [address] [place] [address] Dr. Zonia Zhang HPV Aptima Negative Normal Negative [facility] Comment on above: Result Comment: This nucleic acid amplification test detects fourteen high-risk HPV types (16,18,31,33,35,39,45,51,52,56,58,59,66,68) without differentiation. Performed at: =G Performed By: #### [id number] #### [facility] [address] [place] [address] Dr. Zonia Zhang Methodology: Comment Normal [facility] Comment on above: Result Comment: This liquid based ThinPrep(R) pap test was screened with the use of an image guided system. Performed at: WB Performed By: #### [id number] #### [facility] [address] [place] [address] Dr. Zonia Zhang Note: Comment Normal [facility] Comment on above: Result Comment: The Pap smear is a screening test designed to aid in the detection of premalignant and malignant conditions of the uterine cervix. It is not a diagnostic procedure and should not be used as the sole means of detecting cervical cancer. Both false-positive and false-negative reports do occur. . Performed at: WB Performed By: #### [id number] #### [facility] [address] [place] [address] Dr. Zonia Zhang Performed by: Comment Normal [facility] Comment on above: Result Comment: Negin Tomas, Hose Mender (ASCP) Performed at: WB Performed By: #### [id number] #### [facility] [address] [place] [address] Dr. Zonia Zhang Specimen adequacy: Comment Normal [facility] Comment on above: Result Comment: Sati sfactory for evaluation. Endocervical and/or squamous metaplastic cells (endocervical component) are present. Performed at: WB Performed By: #### [id number] #### [facility] [address] [place] [address] Dr. Zonia Zhang Basophils Auto (Bld) [#/Vol] Ordered By: Delano Francis on 08-07-2022 Basophils (Bld) [#/Vol] 0.0 10*3/uL 0.0-0.2 [facility] Basophils/100 WBC Auto (Bld) Ordered By: Delano Francis on 08-07-2022 Basophils/100 WBC (Bld) 0.5 % . [facility] Blood hemoglobin measurement (mass/volume)Ordered By: Delano Francis on 08-07-2022 Hemoglobin (Bld) [Mass/Vol] 12.7 g/dL 11.8-15.4 [facility] Blood leukocytes automated c ount (number/volume)Ordered By: Delano Francis on 08-07-2022 WBC (Bld) [#/Vol] 5.0 10*3/uL 4.5-11.0 [facility] Body fluid albumin measureme nt (mass/volume)Ordered By: Delano Francis on 08-07-2022 Albumin (Body fld) [Mass/Vol] 4.1 g/dL 3.2-5.5 [facility] Cholesterol [Mass/volume] in Serum or PlasmaOrdered By: Delano Francis on 08-07-2022 Cholesterol [Mass/Vol] 253 mg/dL 140-200 [facility] Comment on above: Chol less than 200 m g/dl low risk Chol 201-239 mg/dl borderline risk Chol 240 mg/dl and greater high risk Chol less than 200 m g/dl low riskChol 201-239 mg/dl borderline riskChol 240 mg/dl and greater high risk Cholesterol in LDL Calc [Mas s/Vol]Ordered By: Delano Francis on 08-07-2022 Cholesterol in LDL [Mass/Vol] 181 mg/dL 0-100 [facility] Comment on above: LDL ATP III CLASSIFI [...] 08-07-2022 Cholesterol in VLDL [Mass/Vol] 12 mg/dL [facility] Creatinine and Glomerular fi ltration rate.predicted panel (S/P/Bld)Ordered By: Delano Francis on 08-07-2022 Creatinine [Mass/Vol] 0.76 mg/dL 0.44-1.03 [facility] Eosinophils Auto (Bld) [#/Vo l]Ordered By: Delano Francis on 08-07-2022 Eosinophils (Bld) [#/Vol] 0.1 10*3/uL 0.0-0.45 [facility] Eosinophils/100 WBC Auto (Bl d)Ordered By: Delano Francis on 08-07-2022 Eosinophils/100 WBC (Bld) 1.6 % . [facility] Erythrocyte distribution wid th Auto (RBC) [Ratio]Ordered By: Delano Francis on 08-07-2022 Erythrocyte distribution width (RBC) [Ratio] 12.6 % 11.9-15.3 [facility] Estimated glomerular filtrat ion rate (GFR) non- AmericanOrdered By: Delano Francis on 08-07-2022 GFR/1.73 sq M.predicted among non-blacks MDRD (S/P/Bld) [Vol rate/Area] > 60 mL/Min [facility] Globulin Calc (S) [Mass/Vol] Ordered By: Delano Francis on 08-07-2022 Globulin (S) [Mass/Vol] 2.3 g/dL [facility] Hematocrit Auto (Bld) [Volum e fraction]Ordered By: Delano Francis on 08-07-2022 Hematocrit (Bld) [Volume fraction] 37.5 % 34.0-46.4 [facility] Laboratory - Chemistry and C hemistry - challengeOrdered By: Delano Francis on 08-07-2022 Glucose [Mass/Vol] 88 mg/dL 70-100 [facility] Laboratory - Hematology and Cell countsOrdered By: Delano Francis on 08-07-2022 Nucleated RBC/100 WBC (Bld) [Ratio] 0.1 % 0-0.5 [facility] Lymphocytes Auto (Bld) [#/Vo l]Ordered By: Delano Francis on 08-07-2022 Lymphocytes (Bld) [#/Vol] 1.4 10*3/uL 1.00-4.8 [facility] Lymphocytes/100 WBC Auto (Bl d)Ordered By: Delano Francis on 08-07-2022 Lymphocytes/100 WBC (Bld) 28.1 % . [facility] MCH Auto (RBC) [Entitic mass ]Ordered By: Delano Francis on 08-07-2022 MCH (RBC) [Entitic mass] 31.8 pg 24.7-34.3 [facility] MCHC Auto (RBC) [Mass/Vol]Or dered By: Delano Francis on 08-07-2022 MCHC (RBC) [Mass/Vol] 33.8 g/dL 32.0-35.0 [facility] MCV Auto (RBC) [Entitic vol] Ordered By: Delano Francis on 08-07-2022 MCV (RBC) [Entitic vol] 94.3 fL 80-100 [facility] Monocyte %Ordered By: Delano Francis on 08-07-2022 Monocyte % 60 mg/dL 35-149 [facility] Comment on above: TRIG ATP III CLASSIF [...] 08-07-2022 Monocytes (Bld) [#/Vol] 0.5 10*3/uL 0.0-0.8 [facility] Monocytes/100 WBC Auto (Bld) Ordered By: Delano Francis on 08-07-2022 Monocytes/100 WBC (Bld) 10.1 % . [facility] Neutrophils Auto (Bld) [#/Vo l]Ordered By: Delano Francis on 08-07-2022 Neutrophils (Bld) [#/Vol] 3.0 10*3/uL 1.8-7.7 [facility] Neutrophils/100 WBC Auto (Bl d)Ordered By: Delano Francis on 08-07-2022 Neutrophils/100 WBC (Bld) 59.7 % . [facility] No Panel InformationOrdered By: Delano Francis on 08-07-2022 Estimated GFR () > 60 mL/Min [facility] Comment on above: GFR estimated refere nce range: According to KDOQI guidelines, <60 ml/min/1.73m2 is sufficient to diagnose a patient with chronic kidney disease. Nicotine Metabolite Negative Cutoff=25 [facility] Comment on above: Performed at: [address] [id number] Director: Quinton Wolf MD, Phone: [phone] Pharmacy Creatinine Clearance (Chem N/A [facility] Platelet mean volume Auto (B ld) [Entitic vol]Ordered By: Delano Francis on 08-07-2022 Platelet mean volume (Bld) [Entitic vol] 7.8 fL 6.3-10.7 [facility] Platelets Auto (Bld) [#/Vol] Ordered By: Delano Francis on 08-07-2022 Platelets (Bld) [#/Vol] 275 10*3/uL 150-450 [facility] Protein [Mass/volume] in Ser um or PlasmaOrdered By: Delano Francis on 08-07-2022 Protein [Mass/Vol] 6.4 g/dL 6.1-7.9 [facility] RBC Auto (Bld) [#/Vol]Ordere d By: Delano Francis on 08-07-2022 RBC (Bld) [#/Vol] 3.97 10*6/uL 3.60-5.00 [facility] Serum or plasma alanine tryo otransferase measurement without P-5'-P (enzymatic activiOrdered By: Delano Francis on 08-07-2022 ALT No additional P-5'-P [Catalytic activity/Vol] 13 U/L 10-60 [facility] Serum or plasma albumin/glob ulin mass ratioOrdered By: Delano Francis on 08-07-2022 Albumin/Globulin [Mass ratio] 1.8 {ratio} [facility] Serum or plasma alkaline nova sphatase measurement (enzymatic activity/volume)Ordered By: Delano Francis on 08-07-2022 ALP [Catalytic activity/Vol] 52 U/L 32-92 [facility] Serum or plasma anion gap de terminationOrdered By: Delano Francis on 08-07-2022 Anion gap [Moles/Vol] 11.7 mmol/L 6.0-15.0 [facility] Serum or plasma aspartate am inotransferase measurement (enzymatic activity/volume)Ordered By: Delano Francis on 08-07-2022 AST [Catalytic activity/Vol] 15 U/L 10-42 [facility] Serum or plasma calcium kevin urement (mass/volume)Ordered By: Delano Francis on 08-07-2022 Calcium [Mass/Vol] 9.8 mg/dL 8.2-10.2 [facility] Serum or plasma chloride ra surement (moles/volume)Ordered By: Delano Francis on 08-07-2022 Chloride [Moles/Vol] 101 mmol/L 95-114 [facility] Serum or plasma high density lipoprotein (HDL) cholesterol measurementOrdered By: Delano Francis on 08-07-2022 Cholesterol in HDL [Mass/Vol] 60 mg/dL 35-85 [facility] Comment on above: HDL CHOL ATP-III CLA SSIFICATION Cardiovascular Risk HDL > or equal to 60 mg/dL LOW HDL < 40 mg/dL HIGH HDL CHOL ATP-III CLA SSIFICATION Cardiovascular RiskHDL > or equal to 60 mg/dL LOWHDL < 40 mg/dL HIGH Serum or plasma potassium me asurement (moles/volume)Ordered By: Delano Francis on 08-07-2022 Potassium [Moles/Vol] 4.4 mmol/L 3.5-5.1 [facility] Serum or plasma sodium measu rement (moles/volume)Ordered By: Delano Francis on 08-07-2022 Sodium [Moles/Vol] 136 mmol/L 136-146 [facility] Serum or plasma total biliru bin measurement (mass/volume)Ordered By: Delano Francis on 08-07-2022 Bilirubin [Mass/Vol] 1.0 mg/dL 0.3-1.2 [facility] Serum or plasma total carbon dioxide measurement (moles/volume)Ordered By: Delano Francis on 08-07-2022 CO2 [Moles/Vol] 27.7 mmol/L 22.0-30.0 [facility] Serum or plasma total choles terol/high density lipoprotein (HDL) cholesterol mass ratOrdered By: Delano Francis on 08-07-2022 Cholesterol.total/Alivia sterol in HDL [Mass ratio] 4.2 {ratio} <5.0 [facility] Serum or plasma urea nitroge n measurement (mass/volume)Ordered By: Delano Francis on 08-07-2022 Urea nitrogen [Mass/Vol] 9 mg/dL 9-23 [facility] TSH DL <= 0.005 mIU/L QnOrde red By: Delano Francis on 08-07-2022 TSH Qn 1.43 m[IU]/L 0.45-5.33 [facility] T3, TOTAL (TRIIODOTHYRONINE) on 06-07-2022 T3, TOTAL 88 ng/dL Normal 71-180 [facility] Comment on above: Performed By: #### T 3TOTAL #### [facility] [address] [address] [address] Zonia Zhang FREE T4on 06-06-2022 Free T4 [Mass/Vol] 0.94 ng/dL Normal 0.76-1.46 [facility] Comment on above: Performed By: #### F T4 #### [facility] [address] [address] [address] Zonia Zhang TSHon 06-06-2022 TSH 1.364 uIU/mL Normal 0.358-3.74 0 [facility] Comment on above: Performed By: #### T SH #### [facility] [address] [address] [address] Zonia Zhang COVID Quick Testingon 2021 Result Positive [email or web address] Other Quick Fluon 12-27-2021 FLUAV Ab CF (S) [Titer] Negative N [facility] [employer] Other FLUBV Ab CF (S) [Titer] Negative N [employer] [facility] [employer] Other Vital Signs Date Time Vital Sign Value Performing Clinician Facility 07-24-2025 11:34-0400 Body mass index (BMI) [Ratio] 36.57 kg/m2 Ángel Sita DO Work Phone: [facility] 07-24-2025 11:34-0400 Body weight 105.92 kg Ángel Sita DO Work Phone: [facility] 07-24-2025 11:34-0400 Diastolic blood pressure 74 mm[Hg] Ángel Sita DO Work Phone: [facility] 07-24-2025 11:34-0400 Systolic blood pressure 118 mm[Hg] Ángel Sita DO Work Phone: [facility] 07-17-2025 14:59-0400 Body mass index (BMI) [Ratio] 36.77 kg/m2 Ángel Sita DO Work Phone: [facility] 07-17-2025 14:59-0400 Body weight 106.5 kg Ángel Sita DO Work Phone: [facility] 07-17-2025 14:59-0400 Diastolic blood pressure 70 mm[Hg] Ángel Sita DO Work Phone: [facility] 07-17-2025 14:59-0400 Systolic blood pressure 118 mm[Hg] Ángel Sita DO Work Phone: [facility] 07-10-2025 13:59-0400 Body mass index (BMI) [Ratio] 36.41 kg/m2 Ángel Sita DO Work Phone: [facility] 07-10-2025 13:59-0400 Body weight 105.46 kg Ángel Sita DO Work Phone: [facility] 07-10-2025 13:59-0400 Diastolic blood pressure 74 mm[Hg] Ángel Sita DO Work Phone: [facility] 07-10-2025 13:59-0400 Systolic blood pressure 126 mm[Hg] Ángel Sita DO Work Phone: [facility] 06-26-2025 13:08-0400 Body mass index (BMI) [Ratio] 36.2 kg/m2 Ángel Sita DO Work Phone: [facility] 06-26-2025 13:08-0400 Body weight 104.83 kg Ángel Sita DO Work Phone: [facility] 06-26-2025 13:08-0400 Diastolic blood pressure 74 mm[Hg] Ángel Sita DO Work Phone: [facility] 06-26-2025 13:08-0400 Systolic blood pressure 116 mm[Hg] Ángel Sita DO Work Phone: [facility] 06-12-2025 14:21-0400 Body mass index (BMI) [Ratio] 35.73 kg/m2 Ángel Sita DO Work Phone: [facility] 06-12-2025 14:21-0400 Body weight 103.47 kg Ángel Sita DO Work Phone: [facility] 06-12-2025 14:21-0400 Diastolic blood pressure 70 mm[Hg] Ángel Sita DO Work Phone: [facility] 06-12-2025 14:21-0400 Systolic blood pressure 120 mm[Hg] Ángel Sita DO Work Phone: [facility] 05-30-2025 09:10-0400 Body mass index (BMI) [Ratio] 35.52 kg/m2 Ángel Sita DO Work Phone: [facility] 05-30-2025 09:10-0400 Body weight 102.88 kg Ángel Sita DO Work Phone: [facility] 05-30-2025 09:10-0400 Diastolic blood pressure 78 mm[Hg] Ángel Sita DO Work Phone: [facility] 05-30-2025 09:10-0400 Systolic blood pressure 120 mm[Hg] Ángel Sita DO Work Phone: [facility] 05-01-2025 08:36-0400 Body mass index (BMI) [Ratio] 34.43 kg/m2 Deisy Adithya PA Work Phone: [facility] 05-01-2025 08:36-0400 Body weight 99.7 kg Deisy Goodridge PA Work Phone: [facility] 05-01-2025 08:36-0400 Diastolic blood pressure 74 mm[Hg] Deisy Adithya PA Work Phone: [facility] 05-01-2025 08:36-0400 Systolic blood pressure 118 mm[Hg] Deisy Adithya PA Work Phone: [facility] 03-30-2025 10:28-0400 Body mass index (BMI) [Ratio] 32.89 kg/m2 Ángel Sita DO Work Phone: [facility] 03-30-2025 10:28-0400 Body weight 95.25 kg Ángel Sita DO Work Phone: [facility] 03-30-2025 10:28-0400 Diastolic blood pressure 84 mm[Hg] Ángel Sita DO Work Phone: [facility] 03-30-2025 10:28-0400 Systolic blood pressure 120 mm[Hg] Ángel Sita DO Work Phone: [facility] 03-02-2025 09:58-0400 Body mass index (BMI) [Ratio] 31.76 kg/m2 Deisy Adithya PA Work Phone: [facility] 03-02-2025 09:58-0400 Body weight 91.99 kg Deisy Adithya PA Work Phone: [facility] 03-02-2025 09:58-0400 Diastolic blood pressure 72 mm[Hg] Deisy Adithya PA Work Phone: [facility] 03-02-2025 09:58-0400 Systolic blood pressure 120 mm[Hg] Deisy MUNOZ Work Phone: [facility] 02-02-2025 09:25-0500 Body mass index (BMI) [Ratio] 30.54 kg/m2 Ángel Sita DO Work Phone: [facility] 02-02-2025 09:25-0500 Body weight 88.45 kg Ángel Sita DO Work Phone: [facility] 02-02-2025 09:25-0500 Diastolic blood pressure 70 mm[Hg] Ángel Sita DO Work Phone: [facility] 02-02-2025 09:25-0500 Systolic blood pressure 120 mm[Hg] Ángel Sita DO Work Phone: [facility] 10-18-2024 11:19-0500 Body height 170.18 cm Robles Ball DO Work Phone: [facility] 10-18-2024 11:19-0500 Body mass index (BMI) [Ratio] 29.7 kg/m2 Robles Ball DO Work Phone: [facility] 10-18-2024 11:19-0500 Body weight 86.23 kg Robles Ball DO Work Phone: [facility] 10-18-2024 11:19-0500 Diastolic blood pressure 77 mm[Hg] Robles Ball DO Work Phone: [facility] 10-18-2024 11:19-0500 Heart rate 88 /min Robles Ball DO Work Phone: [facility] 10-18-2024 11:19-0500 Respiratory rate 12 /min Robles Ball DO Work Phone: [facility] 10-18-2024 11:19-0500 Systolic blood pressure 111 mm[Hg] Robles Ball DO Work Phone: [facility] 09-13-2024 14:28-0400 Body mass index (BMI) [Ratio] 28.79 kg/m2 Ángel Sita DO Work Phone: [facility] 09-13-2024 14:28-0400 Body weight 83.37 kg Ángel Sita DO Work Phone: [facility] 09-13-2024 14:28-0400 Diastolic blood pressure 70 mm[Hg] Ángel Sita DO Work Phone: [facility] 09-13-2024 14:28-0400 Systolic blood pressure 120 mm[Hg] Ángel Sita DO Work Phone: [facility] 05-03-2024 14:40-0400 Body height 170.18 cm [facility] 05-03-2024 14:40-0400 Body mass index (BMI) [Ratio] 28.3 kg/m2 [facility] 05-03-2024 14:40-0400 Body weight 82.1 kg [facility] 05-03-2024 14:40-0400 Diastolic blood pressure 82 mm[Hg] [facility] 05-03-2024 14:40-0400 Heart rate 78 /min [facility] 05-03-2024 14:40-0400 SaO2% (BldA) [Mass fraction] 98 % [facility] 05-03-2024 14:40-0400 Systolic blood pressure 122 mm[Hg] [facility] 01-06-2024 14:20-0500 Body height 170.2 cm Deisy MUNOZ Work Phone: [facility] 01-06-2024 14:20-0500 Body mass index (BMI) [Ratio] 28.05 kg/m2 Deisy MUNOZ Work Phone: [facility] 01-06-2024 14:20-0500 Body weight 81.25 kg Deisy MUNOZ Work Phone: [facility] 01-06-2024 14:20-0500 Diastolic blood pressure 70 mm[Hg] Deisy MUNOZ Work Phone: [facility] 01-06-2024 14:20-0500 Systolic blood pressure 120 mm[Hg] Deisy MUNOZ Work Phone: [facility] 10-02-2023 10:00-0400 Body height 170.18 cm Robles Ball Other [employer] Other 10-02-2023 10:00-0400 Body mass index (BMI) [Ratio] 29.38 kg/m2 Robles Ball Other [employer] Other 10-02-2023 10:00-0400 Body weight 85.1 kg Robles Ball Other [employer] Other 10-02-2023 10:00-0400 Diastolic blood pressure 83 mm[Hg] Robles Ball Other [employer] Other 10-02-2023 10:00-0400 Respiratory rate 12 /min Robles Ball Other [employer] Other 10-02-2023 10:00-0400 Systolic blood pressure 131 mm[Hg] Robles Ball Other [employer] Other 01-22-2023 10:30-0500 Body height 170.18 cm Robles Ball Other [employer] Other 01-22-2023 10:30-0500 Body mass index (BMI) [Ratio] 29.91 kg/m2 Robles Ball Other [employer] Other 01-22-2023 10:30-0500 Body weight 86.64 kg Robles Ball Other [employer] Other 01-22-2023 10:30-0500 Diastolic blood pressure 72 mm[Hg] Robles Ball Other [employer] Other 01-22-2023 10:30-0500 Respiratory rate 16 /min Robles Ball Other [employer] Other 01-22-2023 10:30-0500 Systolic blood pressure 122 mm[Hg] Robles Ball Other [employer] Other 09-26-2022 16:10-0400 Body height 170.18 cm Kiya Schaffer Other [employer] Other 09-26-2022 16:10-0400 Body mass index (BMI) [Ratio] 29.29 kg/m2 Kiya Schaffer Other [employer] Other 09-26-2022 16:10-0400 Body temperature 98.8 [degF] Kiya Schaffer Other [employer] Other 09-26-2022 16:10-0400 Body weight 84.82 kg Kiya Schaffer Other [employer] Other 09-26-2022 16:10-0400 Diastolic blood pressure 73 mm[Hg] Kiya Schaffer Other [employer] Other 09-26-2022 16:10-0400 Respiratory rate 18 /min Kiya Schaffer Other [employer] Other 09-26-2022 16:10-0400 SaO2% (BldA) [Mass fraction] 97 % Kiya Schaffer Other [employer] Other 09-26-2022 16:10-0400 Systolic blood pressure 125 mm[Hg] Kiya Schaffer Other [employer] Other 12-27-2021 10:15-0500 Body height 170.18 cm Elsi Mayer Other [employer] Other 12-27-2021 10:15-0500 Body mass index (BMI) [Ratio] 28.19 kg/m2 Elsi Mayer Other [employer] Other 12-27-2021 10:15-0500 Body temperature 100.3 [degF] Elsi Mayer Other [employer] Other 12-27-2021 10:15-0500 Body weight 81.65 kg Elsi Mayer Other [employer] Other 12-27-2021 10:15-0500 Respiratory rate 18 /min Elsi Mayer Other [employer] Other 12-27-2021 10:15-0500 SaO2% (BldA) [Mass fraction] 98 % Elsi Mayer Other [employer] Other Encounters Encounter Date Encounter Type Care Provider Facility Start: 07-24-2025 End: 07-24-2025 Bamboo flowsheet Ángel Sita DO Work Phone: [facility] Start: 07-24-2025 End: 07-24-2025 Bamboo flowsheet Ángel Sita DO Work Phone: [facility] Start: 07-24-2025 End: 07-24-2025 ambulatory ÁNGEL SITA Not Available Start: 07-24-2025 End: 07-24-2025 flow sheet Ángel Sita DO Work Phone: [facility] Comment on above: Third trimester preg lai ([facility] 37 weeks gestation of ([facility]) Start: 07-22-2025 End: 07-22-2025 Clinisync Result Encounter Ángel Sita DO Work Phone: [facility] External Department Unsolicited Start: 07-22-2025 End: 07-22-2025 Clinisync Result Encounter Ángel Sita DO Work Phone: [facility] External Department Unsolicited Start: 07-17-2025 End: 07-17-2025 flow sheet Ángel Sita DO Work Phone: [facility] Comment on above: 36 weeks gestation o f ([facility]); Third trimester ([facility]); History of miscarriage; Multigravida of advanced maternal age in third trimester ([facility]); Excessive growth affecting management of in third trimester, single or unspecified fetus ([facility]) Start: 07-17-2025 End: 07-17-2025 ambulatory ÁNGEL SITA Not Available Start: 07-17-2025 End: 07-17-2025 Bamboo flowsheet Ángel Sita DO Work Phone: [facility] Start: 07-17-2025 End: 07-17-2025 Bamboo flowsheet Ángel Sita DO Work Phone: [facility] Start: 07-15-2025 End: 07-15-2025 Clinisync Result Encounter Ángel Sita DO Work Phone: [facility] Unsolicited Start: 07-15-2025 End: 07-15-2025 Clinisync Result Encounter Ángel Sita DO Work Phone: [facility] Unsolicited Start: 07-10-2025 End: 07-10-2025 Bamboo flowsheet Ángel Sita DO Work Phone: [facility] [place] [facility] Start: 07-10-2025 End: 07-10-2025 Bamboo flowsheet Ángel Sita DO Work Phone: [facility] Start: 07-10-2025 End: 07-10-2025 flow sheet Ángel Sita DO Work Phone: [facility] CARRAS[facility] Comment on above: Third trimester preg lai ([facility]); 35 weeks gestation of ([facility]) Start: 07-10-2025 End: 07-10-2025 ambulatory ÁNGEL SITA [...] Work Phone: HERBIE CARRASQUILLO Comment on above: Third trimester preg lai ([facility]); 33 weeks gestation of ([facility]) Start: 06-26-2025 End: 06-26-2025 ambulatory ÁNGEL SITA Not Available Start: 06-26-2025 End: 06-26-2025 ambulatory DEISY ADITHYA Not Available Start: 06-24-2025 End: 06-24-2025 Clinisync Result Encounter Ángel Sita DO Work Phone: [facility] Unsolicited Start: 06-24-2025 End: 06-24-2025 Clinisync Result Encounter Ángel Sita DO Work Phone: [facility] Unsolicited Start: 06-17-2025 End: 06-17-2025 Clinisync Result Encounter Nágel Sita DO Work Phone: [facility] External Department [...] Sita DO Work Phone: [facility] Start: 06-12-2025 End: 06-12-2025 Bamboo [...] Sita DO Work Phone: [facility] Start: 05-30-2025 End: 05-30-2025 Bamboo flowsheet Ángel Stia DO Work Phone: [facility] Start: 05-30-2025 End: 05-30-2025 flow sheet Ángel Sita DO Work Phone: [facility] Comment on above: Third trimester preg lai ([facility] 29 weeks gestation of ([facility]); History of miscarriage; Multigravida of advanced maternal age in third trimester ([facility]) Start: 05-30-2025 End: 05-30-2025 ambulatory ÁNGEL SITA Not Available Start: 05-11-2025 End: 05-11-2025 Clinisync Result Encounter Edson Dewitt NP Work Phone: [facility] External Department Unsolicited Start: 05-11-2025 End: 05-11-2025 Clinisync Result Encounter Edson Dewitt NP Work Phone: [facility] External Department Unsolicited Start: 05-01-2025 End: 05-01-2025 Bamboo flowsheet Deisy MUNOZ Work Phone: [facility] Start: 05-01-2025 End: 05-01-2025 Bamboo flowsheet Deisy MUNOZ Work Phone: [facility] Start: 05-01-2025 End: 05-01-2025 flow sheet Deisy MUNOZ Work Phone: [facility] Comment on above: size inconsist [...] Unsolicited Start: 04-18-2025 End: 04-18-2025 ambulatory ÁNGEL STIA Not Available Start: 03-30-2025 End: 03-30-2025 Bamboo [...] Patient encounter procedure Deisy MUNOZ Work Phone: [facility] Start: 03-02-2025 End: 03-02-2025 Periodic preventive med est patient 18-39 yrs Deisy Villar PA Work Phone: [facility] [...] 10-18-2024 ambulatory Robles Charles DO Work Phone: [facility] Work Phone: Start: 10-18-2024 End: 10-18-2024 Encounter for general adult medical examination without abnormal findings Robles Charles DO Work Phone: [facility] Start: 10-18-2024 End: 10-18-2024 Patient encounter procedure Robles Charles DO Work Phone: [facility] Work Phone: Start: 10-16-2024 Patient encounter status Jermaine min Ball DO Work Phone: [facility] Start: 10-14-2024 Non-patient / Non-visit Benjam in Ball DO Work Phone: [facility] Work Phone: Start: 09-22-2024 End: 09-22-2024 Departed Referred DO Robles Charles Work Phone: [facility] Start: 09-22-2024 End: 09-22-2024 ambulatory DO Robles Charles Work Phone: [facility] Work Phone: Start: 09-13-2024 End: 09-13-2024 Bamboo [...] Available Start: 08-29-2024 End: 08-29-2024 ambulatory [facility] Work Phone: Start: 08-29-2024 End: 08-29-2024 Patient encounter procedure [facility] Work Phone: Start: 05-03-2024 End: 05-03-2024 ambulatory [facility] Work Phone: Start: 05-03-2024 End: 05-03-2024 Patient encounter procedure [facility] Work Phone: Start: 2024 End: 2024 ambulatory DO Robles Ball Work Phone: [facility] Work Phone: Start: 2024 End: 2024 Patient encounter procedure DO Robles Ball Work Phone: [facility] Work Phone: Start: 01-07-2024 End: 01-07-2024 Patient encounter procedure DO Robles Ball Work Phone: [facility] Work Phone: Start: 01-07-2024 End: 01-07-2024 ambulatory DO Robles Ball Work Phone: [facility] Work Phone: Start: 01-06-2024 End: 01-06-2024 Office outpatient visit 15 minutes Deisy MUNOZ Work Phone: [facility] Comment on above: Encounter for weight management; Hormone disorder; 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 Start: 10-02-2023 End: 10-02-2023 ambulatory Robles Charles Other [email or web address] Other Start: 10-02-2023 Encounter for genera l adult medical examination without abnormal findings Robles Charles [facility] Start: 10-02-2023 Periodic preventive med est patient 18-39 yrs Robles Charles [facility] Start: 09-17-2023 End: 09-17-2023 ambulatory MD Liz Conteh Work Phone: [facility] Work Phone: Start: 09-17-2023 End: 09-17-2023 Departed Referred MD Liz Conteh Work Phone: [facility]-Employee Benefit Screening Start: 01-22-2023 End: 01-22-2023 ambulatory Robles Charles Other [email or web address] Other Start: 01-22-2023 Office outpatient vi sit 15 minutes Robles Charles [facility] Start: 01-12-2023 End: 01-12-2023 ambulatory Robles Charles Other [email or web address] Other Start: 01-12-2023 Telephone encounter Robles Charles [facility] Start: 12-24-2022 End: 12-24-2022 ambulatory Robles Charles Other [email or web address] Other Start: 12-24-2022 Office outpatient vi sit 15 minutes Robles Charles [facility] Start: 09-30-2022 End: 09-30-2022 ambulatory Kiya Schaffer Other [email or web address] Other Start: 09-30-2022 Telephone encounter Kiya Schaffer [facility] Start: 09-26-2022 End: 09-26-2022 Departed Referred MD Liz Conteh Work Phone: [facility] Start: 09-26-2022 End: 09-26-2022 ambulatory MD Liz Conteh Work Phone: [facility] Work Phone: Start: 09-26-2022 Office outpatient vi sit 15 minutes Kiyaroseline Schaffer [facility] Start: 09-25-2022 ([facility] C Vac) [facility] Co vid Vaccine [facility] Start: 09-25-2022 End: 09-25-2022 ambulatory MD Liz Conteh Work Phone: [facility] Work Phone: Start: 09-25-2022 End: 09-25-2022 Patient encounter procedure MD Liz Conteh Work Phone: [facility] Vaccine Off Site Start: 08-25-2022 End: 08-25-[address] ÁNGEL BUCKNER Facility:[facility] Start: 08-07-2022 End: 08-07-2022 Departed Referred MD Liz Conteh Work Phone: [facility]-Employee Benefit Screening Start: 06-06-2022 End: 06-07-[address] ROBLES CHARLES Facility:[facility] Start: 01-01-2022 End: 01-01-2022 ambulatory Elsi Mayer Other [email or web address] Other Start: 01-01-2022 Office outpatient vi sit 5 minutes Elsi Mayer [facility] Start: 12-27-2021 End: 12-27-2021 ambulatory Elsi Mayer Other [email or web address] Other Start: 12-27-2021 Office outpatient vi sit 15 minutes Elsi Mayer [facility] Start: 08-23-2021 ([facility] C Vac) [facility] Co vid Vaccine [facility] Procedures Date Procedure Procedure Detail Performing Clinician Start: 07-24-2025 Urnls dip stick/tabl et rgnt non-auto w/o micrscp Ángel Sita DO Work Phone: Start: 07-22-2025 US OB BPP W NON-STRESS Ángel Sita DO Work Phone: Start: 07-17-2025 Urnls dip stick/tabl et rgnt non-auto w/o micrscp Ángel Sita DO Work Phone: Start: 07-15-2025 US OB BPP W NON-STRESS Ángel Sita DO Work Phone: Start: 07-10-2025 Urnls dip stick/tabl et rgnt non-auto w/o micrscp Ángel Sita DO Work Phone: Start: 07-08-2025 OB BPP W NON-STRESS Ángel Sita DO Work Phone: Start: 07-01-2025 OB BPP W NON-STRESS Ángel Sita DO Work Phone: Start: 06-26-2025 Urnls dip stick/tabl et rgnt non-auto w/o micrscp Ángel Sita DO Work Phone: Start: 06-24-2025 OB BPP W NON-STRESS Ángel Sita DO Work Phone: Start: 06-17-2025 OB BPP W NON-STRESS Ángel Sita DO Work Phone: Start: 06-10-2025 US OB BPP W NON-STRESS Ángel Sita DO Work Phone: Start: 06-03-2025 US OB BPP W NON-STRESS Ángel Sita DO Work Phone: Start: 05-30-2025 Urnls dip stick/tabl et rgnt non-auto w/o micrscp Ángel Sita DO Work Phone: Start: 05-11-2025 US OB GROWTH 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: Start: 04-18-2025 ALL CBC [...] for malignant neoplasm of cervix Pap Smear [facility] Start: 09-19-2025 End: 09-19-2025 Patient encounter procedure [facility] Start: 08-07-2025 End: 08-07-2025 Patient encounter procedure 08/07/2025 3:00 PM EDT Routine [facility] [address] [place] [id number] Ángel Buckner DO [address] [place] [address] [facility] Start: 08-03-2025 End: 08-03-2025 Patient encounter procedure 08/03/2025 9:10 AM EDT Routine [facility] [address] [place] [phone] Ángel Buckner DO [address] [place] [address] [facility] Start: 07-31-2025 Influenza vaccination [facility] Start: 07-24-2025 End: 07-24-2025 Patient encounter procedure 07/24/2025 11:20 AM EDT Routine [facility] [address] [place] [phone] Ángel Buckner DO [address] [place] [address] [facility] Start: 07-17-2025 End: 07-17-2025 Patient encounter procedure [facility] Comment on above: Arrived Start: 07-10-2025 End: 07-10-2026 CULTURE, GROUP B STREP WITH SUSCEPTIBLITY CULTURE, GROUP B STREP WITH SUSCEPTIBLITY Lab Routine Third trimester ([facility]) Expected: 07/10/2025, Expires: 07/10/2026 [facility] Work [...] or unspecified fetus ([facility]) Expected: 06/12/2025, Expires: 10/13/2025 [facility] Work Phone: Comment on above: Expected: 06/12/2025, Expires: Start: 05-30-2025 End: 11-30-2025 US biophysical profile w non stress test US biophysical profile w non stress test Imaging Routine History of miscarriage Multigravida of advanced maternal age in third trimester ([facility]) Expected: 05/30/2025 (Approximate), Expires: 11/30/2025 [facility] [...] EDT Ancillary Procedure [facility] [address] [place] [address] [facility] Start: 04-03-2025 End: 04-03-2025 Patient encounter procedure 04/03/2025 9:50 AM EDT Routine [facility] [address] [place] [phone] Ángel Buckner, DO [address], [place] [address] [facility] Start: 04-03-2025 End: 04-03-2025 Professional / ancillary services management 04/03/2025 8:00 AM EDT Ancillary Procedure [facility] [address] [place] [address] [facility] Start: 03-30-2025 End: 03-30-2026 CBC panel - Blood by Automated count CBC Lab Routine Second trimester Diabetes mellitus screening Expected: 03/30/2025 (Approximate), Expires: 03/30/2026 [facility] Work Phone: Comment on above: Expected: [...] AM EDT Routine [facility] [address] [place] [address] Deisy Villar PA [address] [place] [address] Arrived [facility] Comment on above: Arrived Start: 02-02-2025 End: 02-02-2025 Patient encounter procedure [facility] Comment on above: Arrived Start: 01-05-2025 End: 01-05-2025 ambulatory 01/05/2025 1:30 PM EST Initial [facility] [address] [place] [address] [facility] Start: 01-05-2025 End: 01-05-2025 Professional / ancillary services management 01/05/2025 1:00 PM EST Ancillary Procedure [facility] [address] [place] [place] [phone] [facility] Start: 09-13-2024 End: 09-13-2024 Patient encounter procedure [facility] Comment on above: Arrived Start: 07-31-2024 Influenza vaccination Influenza Vaccine (#1) [facility] Start: 02-03-2024 End: 02-03-2024 Patient encounter procedure 02/03/2024 1:50 PM EST Office Visit [facility] [address] [place] [phone] Deisy Villar PA [address] [address] [facility] Start: 01-07-2024 Dehydroepiandrosterone sulfate level [facility] Start: 01-07-2024 Sex hormone binding globulin measurement [facility] Start: 01-07-2024 T3 reverse measurement [facility] Start: 01-07-2024 Thyroxine measurement [facility] Start: 01-07-2024 [facility] Start: 01-06-2024 End: 01-06-2025 Anti-thyroglobulin antibody Anti-thyroglobulin [...] 01-06-2025 Thyrotropin [Units/volume] in Serum or Plasma [facility] Comment on above: Ordered: 01/06/2024 Expected: 01/06/2024 (Approximate), Expires: 01/06/2025 Start: 09-17-2023 [facility] Start: 08-07-2022 [facility] Work Phone: Calcitriol [Mass/vol ume] in Serum or Plasma [facility] CHLAMYDIA TRACHOMATI S (GENITO/STI) CHLAMYDIA TRACHOMATIS (GENITO/STI) Lab Routine Exposure to STD Ordered: 03/02/2025 [facility] Comment on above: Ordered: 03/02/2025 Cytology Cervical or vaginal smear or scraping study Pap Smear Pathology and Cytology Routine Well woman exam with routine gynecological exam Ordered: 09/13/2024 [facility] Work Phone: Comment on above: Ordered: 09/13/2024 Cytology Cervical or vaginal smear or scraping study Pap Smear Pathology and Cytology Routine Well woman exam with routine gynecological exam Ordered: 03/02/2025 [facility] Comment on above: Ordered: 03/02/2025 DHEA-sulfate DHEA-sulfate Lab Routine Hormone disorder Ordered: 01/06/2024 [facility] Comment on above: Ordered: 01/06/2024 Estradiol Estradiol Lab Ro utine Hormone disorder Ordered: 01/06/2024 [facility] Work Phone: Comment on above: Ordered: 01/06/2024 Estradiol (E2) [Mass /volume] in Serum or Plasma [facility] Estrone Estrone Lab Rout ine Hormone disorder Ordered: 01/06/2024 [facility] Comment on above: Ordered: 01/06/2024 Estrone (E1) [Mass/v olume] in Serum or Plasma [facility] Ferritin [Mass/volum e] in Serum or Plasma Ferritin Lab Routine Hormone disorder Ordered: 01/06/2024 [facility] Comment on above: Ordered: 01/06/2024 Hemoglobin A1c measurement Hemog lobin A1c Lab Routine Hormone disorder Ordered: 01/06/2024 [facility] Comment on above: Ordered: 01/06/2024 Human papilloma viru s DNA [Presence] in Unspecified specimen by Probe with amplification HPV DNA probe, amplified Microbiology Routine Well woman exam with routine gynecological exam Ordered: 09/13/2024 [facility] Comment on above: Ordered: 09/13/2024 Human papilloma viru s DNA [Presence] in Unspecified specimen by Probe with amplification HPV DNA probe, amplified Microbiology Routine Well woman exam with routine gynecological exam Ordered: 03/02/2025 [facility] Comment on above: Ordered: 03/02/2025 Insulin [Units/volum e] in Serum or Plasma [facility] Neisseria gonorrhoea e DNA [Presence] in Unspecified specimen by ROB with probe detection Neisseria gonorrhea DNA probe, direct Lab Routine Exposure to STD Ordered: 03/02/2025 [facility] Comment on above: Ordered: 03/02/2025 Progesterone Progesterone Lab Routine Hormone disorder Ordered: 01/06/2024 [facility] Comment on above: Ordered: 01/06/2024 Progesterone [Mass/v olume] in Serum or Plasma [facility] Serotonin [Mass/volu me] in Plasma [facility] Sex hormone binding globulin Sex hormone binding globulin Lab Routine Hormone disorder Ordered: 01/06/2024 [facility] Comment on above: Ordered: 01/06/2024 SURESWAB(R) ADVANCED VAGINITIS PLUS, TMA SURESWAB(R) ADVANCED VAGINITIS PLUS, TMA Pathology and Cytology Routine Vaginal discharge Ordered: 03/02/2025 [facility] Work Phone: Comment on above: Ordered: 03/02/2025 T3, reverse T3, reverse Lab Routine Hormone disorder Ordered: 01/06/2024 [facility] Comment on above: Ordered: 01/06/2024 Testosterone Free [Mass/volume] in Serum or Plasma [facility] TESTOSTERONE, FREE TESTOSTERONE, FREE Lab Routine Hormone disorder Ordered: 01/06/2024 [facility] Comment on above: Ordered: 01/06/2024 Testosterone, free, total Testos terone, free, total Lab Routine Hormone disorder Ordered: 01/06/2024 [facility] Comment on above: Ordered: 01/06/2024 Throat culture Throat Culture [facility] Thyroglobulin Ab [Units/volume] in Serum or Plasma [facility] Thyroid peroxidase antibody Thyr oid peroxidase antibody Lab Routine Hormone disorder Ordered: 01/06/2024 [facility] Comment on above: Ordered: 01/06/2024 Thyroperoxidase Ab [Units/volume] in Serum or Plasma [facility] Thyroxine (T4) free [Mass/volume] in Serum or Plasma T4, free Lab Routine Hormone disorder Ordered: 01/06/2024 [facility] Comment on above: Ordered: 01/06/2024 Triiodothyronine (T3 ) Free [Mass/volume] in Serum or Plasma T3, free Lab Routine Hormone disorder Ordered: 01/06/2024 [facility] Comment on above: Ordered: 01/06/2024 Vitamin D 1,25 dihydroxy Vitamin D 1,25 dihydroxy Lab Routine Hormone disorder Ordered: 01/06/2024 [facility] Comment on above: Ordered: 01/06/2024 [facility] Work Phone: Immunizations Immunization Date Immunization Notes Care Provider Fa cility 09-15-2023 influenza, injectabl e, quadrivalent, preservative free [facility] 09-15-2023 influenza virus vaccine, unspecified formulation Ángel Buckner DO Work Phone: [facility] 09-25-2022 COVID-19 Moderna (BIvalent) Kiya Schaffer Other [facility] 08-23-2021 COVID-19 Pfizer Subha Fitt Other [facility] 07-31-2021 COVID-19 Pfizer Subha Fitt Other [facility] 05-19-2021 diphtheria, tetanus toxoids and pertussis vaccine [facility] Payers Date Payer Category Payer Self-pay [id number] 2022 Private Health Insurance [employer] [id number] 2022 Unknown [employer] [id number] 2022-Present [address] [place] [address] [id number] 1990 Unknown [id number] [id number] .593 1990 Unknown [id number] 2.16.840.1.283477.3.579.2 .593 1990 Unknown [id number] 2.16.840.1.308136.3.579.2 .1258 1990 Unknown [id number] 2.16.840.1.213826.3.579.2 .1258 1990 Unknown [id number] 2.16.840.1.683934.3.579.2 .1258 1990 Unknown [id number] 2.16.840.1.816439.3.579.2 .1258 1990 Unknown [id number] 2.16.840.1.539206.3.579.2 .1258 1990 Unknown [id number] 2.16.840.1.806184.3.579.2 .1258 1990 Unknown [id number] 2.16.840.1.266479.3.579.2 .1258 1990 Unknown [id number] 2.840.1.501384.3.579.2 .1258 1990 Unknown [id number] 2.16840.1.915989.3.579.2 .1258 1990 Unknown [id number] 2.16840.1.351557.3.579.2 .1258 1990 Unknown [id number] 2.16840.1.831390.3.579.2 .1258 1990 Unknown [id number] 2.16840.1.850952.3.579.2 .1258 1990 Unknown [id number] 2.16.840.1.014479.3.579.2 .1258 1990 Unknown [id number] 2.16840.1.185457.3.579.2 .1258 1990 Unknown [id number] 2.16.840.1.162155.3.579.2 .1259 1959 Unknown [id number] 2.16840.1.812843.19 Unknown [id number] 2.16.840.1.616840.3.579.2 .531 Unknown [id number] 2.16.840.1.964823.3.579.2 .531 Worker's Compensation [facility] Med C t Ind [id number] Social History Date Type Detail Facility Start: 10-13-2023 End: 09-13-2024 Sex Assigned At [facility] Start: 1990 Sex Assigned At Female F [facility] Start: 08-13-2023 End: 05-03-2024 Tobacco smoking [...] [facility] Start: 10-18-2024 Sex Female (finding) [facility] Start: 11-16-2024 [facility] Clinical Notes 08-23-2021 to 07-24-2025 Edson Dewitt NP - 07/24/2025 11:20 AM Joselito Kearney LPN - 07/17/2025 2:50 PM Margaret Dewitt NP - 07/10/2025 1:50 PM Joselito Kearney LPN - 06/26/2025 1:10 PM EDT Note Date & Type Note Facility 07-24-2025 History of Presen t illness Narrative Reason [...] nursing note reviewed. Exam conducted with a veneer puller present. Vitals: Estimated body mass index is 36.57 kg/m as calculated from the following: Height as of 01/06/24: 5' 7 . Weight as of this encounter: 233 lb 8 oz. BP: 118/74 Patient's last menstrual period was 11/02/2024. ASSESSMENT & PLAN ICD-10-CM 1. Third trimester ([facility]) Z34.93 POCT urinalysis dipstick manually resulted 2. 37 weeks gestation of ([facility]) Z3A.37 Return OB: Patient presents today for [...] Ángel Buckner DO documented in this encounter [facility] 07-17-2025 History of Presen t illness Narrative [...] nursing note reviewed. Exam conducted with a veneer puller present. Vitals: Estimated body mass index is 36.77 kg/m as calculated from the following: Height as of 01/06/24: 5' 7 . Weight as of this encounter: 234 lb 12.8 oz. BP: 118/70 Patient's last menstrual period was 11/02/2024. ASSESSMENT & PLAN ICD-10-CM 1. 36 weeks gestation of ([facility]) Z3A.36 POCT urinalysis dipstick manually resulted 2. Third trimester ([facility]) Z34.93 POCT urinalysis dipstick manually resulted 3. History of miscarriage Z87.59 4. Multigravida of advanced maternal age in third trimester ([facility]) O09.523 5. Excessive growth affecting management of in third trimester, single or unspecified fetus ([facility]) O36.63X0 Patient presents today for a routine obstetrics appointment. Patient is currently 36w5d with a Estimated Date of Delivery: 08/09/25. Pelvic exam performed and patient is currently 2cm and 70% effaced. Patient to return to clinic in 1 week. Documented by Mary Lou Kearney LPN on behalf of: Ángel Buckner DO documented in this encounter [facility] 07-[facility] History of Presen t illness Narrative [...] ASSESSMENT & PLAN ICD-10-CM 1. Third trimester ([facility]) Z34.93 CULTURE, GROUP B STREP WITH SUSCEPTIBLITY CULTURE, GROUP B STREP WITH SUSCEPTIBLITY 2. 35 weeks gestation of ([facility]) Z3A.35 POCT urinalysis dipstick manually resulted Return [...] Ángel Buckner DO documented in this encounter [facility] 06-26-2025 History of Presen t illness Narrative [...] nursing note reviewed. Exam conducted with a veneer puller present. Vitals: Estimated body mass index is 36.2 kg/m as calculated from the following: Height as of 01/06/24: 5' 7 . Weight as of this encounter: 231 lb 1.9 oz. BP: 116/74 Patient's last menstrual period was 11/02/2024. ASSESSMENT & PLAN (Z34.93) Third trimester ([facility]) Plan: POCT urinalysis dipstick manually resulted (Z3A.33) 33 weeks gestation of ([facility]) Plan: POCT urinalysis dipstick manually resulted Patient presents today for a routine obstetrics appointment. Patient is currently 33w5d with a Estimated Date of Delivery: 08/09/25. Patient to return to clinic in 2 weeks for GBS. Documented by Mary Lou Kearney LPN on behalf of: Ángel Buckner DO documented in this encounter [facility] 06-12-2025 History of Presen t illness Narrative [...] or unspecified fetus ([facility]) O36.63X0 US OB follow up transabdominal approach 2. 31 weeks gestation of ([facility]) Z3A.31 POCT urinalysis dipstick manually resulted 3. Third trimester ([facility]) Z34.93 POCT urinalysis dipstick manually resulted 4. History of miscarriage Z87.59 5. Multigravida of advanced maternal age in third trimester ([facility]) O09.523 Return OB: Patient presents today for [...] Ángel Buckner DO documented in this encounter [facility] 05-30-2025 History of Presen t illness Narrative [...] nursing note reviewed. Exam conducted with a veneer puller present. Vitals: Estimated body mass index is 35.52 kg/m as calculated from the following: Height as of 01/06/24: 5' 7 . Weight as of this encounter: 226 lb 12.8 oz. BP: 120/78 Patient's last menstrual period was 11/02/2024. ASSESSMENT & PLAN ICD-10-CM 1. Third trimester ([facility]) Z34.93 POCT urinalysis dipstick manually resulted 2. 29 weeks gestation of ([facility]) Z3A.29 POCT urinalysis dipstick manually resulted 3. History of miscarriage Z87.59 4. Multigravida of advanced maternal age in third trimester ([facility]) O09.523 Return OB: Patient presents today for [...] Ángel Buckner DO documented in this encounter [facility] 05-01-2025 History of Presen t illness Narrative [...] Diagnosis Date Fatigue GARTH (generalized anxiety disorder) ([facility]) Hyperlipidemia ([facility]) Paronychia, finger HISTORY PAST MEDICAL HISTORY SOCIAL [...] nursing note reviewed. Exam conducted with a veneer puller present. Vitals: Estimated body mass index is [...] Edson Dewitt NP documented in this encounter [facility] 03-30-2025 History of Presen t illness Narrative [...] nursing note reviewed. Exam conducted with a veneer puller present. Vitals: Estimated body mass index is [...] Ángel Buckner DO documented in this encounter [facility] 03-02-2025 History of Presen t illness Narrative [...] nursing note reviewed. Exam conducted with a veneer puller present. Vitals: Estimated body mass index is [...] without difficulty and patient was given [facility] order to have obtained. Orders [...] of: ALEXANDER Gramajo documented in this encounter [facility] 02-02-2025 History of Presen t illness Narrative [...] Fatigue GARTH (generalized anxiety disorder) (CMS/HCC) Hyperlipidemia ([facility]) Paronychia, finger HISTORY PAST MEDICAL HISTORY SOCIAL HISTORY Past Medical History: Diagnosis Date Fatigue GARTH (generalized anxiety disorder) ([facility]) Hyperlipidemia (CMS/HCC) Paronychia, finger Social History Tobacco [...] Ángel Buckner DO documented in this encounter [facility] 09-13-2024 History of Presen t illness Narrative [...] nursing note reviewed. Exam conducted with a veneer puller present. Vitals: Estimated body mass index is [...] Ángel Buckner DO documented in this encounter [facility] 01-06-2024 History of Presen t illness Narrative [...] of: ALEXANDER Gramajo documented in this encounter [facility] 10-02-2023 Evaluation note Encounter Date Diagnosis Assessment [...] prior to bedtime. Weight loss. Pepcid PRN [email or web address] Other 2023 Evaluation note* Encounter Date Diagnosis Assessment Notes Treatment Notes Treatment Clinical Notes Dec, Nasal turbinate hypertrophy (ICD-10 - J34.3) FLonase, saline NS, Sudafed and avoid use of Afin. Refer to ENT. Dec, Nonallergic vasomotor rhinitis (ICD-10 - J30.0) Prednisone tapered over 8 days. Claritin as needed. [email or web address] Other 02-13-2023 Evaluation note* Encounter Date Diagnosis Assessment Notes Treatment Notes Treatment Clinical Notes Dec, Acute non-recurrent maxillary sinusitis (ICD-10 - J01.00) [email or web address] Other 01-25-2023 Evaluation note* Encounter Date Diagnosis Assessment Notes Treatment Notes Treatment Clinical Notes Nov, Acute non-recurrent maxillary sinusitis (ICD-10 - J01.00) Instructed to use Robitussin or Mucinex for cough, saline or Flonase NS for congestion, Tylenol for pain and fever. [email or web address] Other 10-28-2022 Evaluation note* Encounter Date Diagnosis [...] (suspected) exposure to covid-19 (ICD-10 - Z20.822) [email or web address] Other 10-27-2022 Evaluation note* Encounter Date Diagnosis Assessment Notes Treatment Notes Treatment Clinical Notes Aug, Encounter for immunization (ICD-10 - Z23) Patient presents today for COVID-19 vaccination booster. Patient pre-vaccination form answers reviewed. Patient denies current illness or allergic reaction to any component of a COVD-19 vaccine. Patient provided with copy of current EUA. [email or web address] Other 02-02-2022 Evaluation note* Encounter Date Diagnosis [...] Patient care instructions given in writting by [facility] At Home document. Additional time spent conducting pre-visit phone call, screening for symptoms, instructions on social distancing, application and removal of PPE, and cleaning of examination room, equipment and supplies was preformed. Patient education given for testing methodology and results. Patient care instructions given in writting by [employer] [facility] document. [email or web address] Other 01-28-2022 Evaluation note* Encounter Date Diagnosis [...] Patient care instructions given in writting by [facility] document. [email or web address] Other 09-24-2021 Evaluation note* Encounter Date Diagnosis Assessment Notes Treatment Notes Treatment Clinical Notes Jul, Encounter for immunization (ICD-10 - Z23) Patient presents for COVID-19 vaccination #2. Pre-screening form answers evaluated with patient. Patient denies current illness or allergic reaction to component of COVID-19 vaccine. Patient provided with current copy of EUA. [email or web address] Other Evaluation noteNo assessment information available [facility] Work Phone: Evaluation noteNo InformationNort [employer] Other Evaluation note* Diagnosis Encounter for weight management Hormone disorder Unspecified endocrine disorder 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 [facility] Diagnosis Well woman exam with routine gynecological exam Routine gynecological examination [facility] Diagnosis Onset Date Resolution Status Admit Date Hypercholesteremia acute Novemb er 2023 11:13am Wellness examination acute Nove mber 2023 11:13am [facility] Work Phone: Evaluation note* Diagnosis 13 [...] fetus ([facility]) [facility] Diagnosis Third trimester ([facility]) state, incidental 37 weeks gestation of ([facility]) documented [facility] this encounter [facility] Narrative - Reported* Type Description Date Medical History Child X2 Natural Surgical History No know Surgical history Hospitalization History see above [email or web address] Other Hisjjyy general Narrative - Reported* Type Description Date Medical History Child X2 Natural Surgical History No Surgical history information Hospitalization History see above [email or web address] Other Hismvxg general Narrative - Reported* Type Description Date Medical History Child X2 Natural Medical History Body mass index (BMI) of 25.0 to 29.9 Medical History Fatigue Medical History Hyperlipidemia, group A Medical History GARTH (generalized anxiety disorde r) Surgical History No know Surgical history Hospitalization History No know Hospitalization history [email or web address] Other Chief Complaint and Reason for Visit [...] Nasal turbinate hype rtrophy (J34.3) Referral Organization [facility] Referring Provider First Name Robles Referring Provider Last Name Nela Referring Provider Specialty Internal Me dicine Referred Organization [facility] Referred Provider KoRobles cardenas Referred Address ,[place], [place],[address] Referred Provider Specialty Otolaryngolo gy Referral Priority Routine Referral Appointment Date 2023-02-04 General Notes Rosangela Cruz 09:25:33 AM >received today, notes locked, insurance card attached, referral faxed Rosangela Cruz 01/29/2023 12:42:25 PM >Shannan at Dr. Rodriges office requested referral be faxed again to [phone]. done! Rosangela Cruz 02/05/2023 02:23:23 PM >notes [...] Provider Active Delano Francis DO [facility] Attending Provider Active Team Status: Active Member [...] January 07, 2024 End: January 07, 2024 Retail Zone Specialist Relationship Specialty Start Date End Date Robles Charles MD [address] [place] [address] PCP - General Internal Medicine 07/30/23 Team Status: Inactive Member Role Status Dates Robles Charles DO Primary Care Provide r, Attending Provider Active Start: 2024 End: 2024 Team Status: Inactive Member Role Status Dates Robles Charles DO Primary Care Provider Active Start: May 03, 2024 End: May 03, 2024 Caro Chacon APRN [employer]LECT[employer] MACHINE [employer]-C Attending Provider Act alex Start: May 03, 2024 End: May 03, 2024 Team Status: Inactive Member Role Status Dates Robles Charles DO Primary Care Provide r, Attending Provider Active Start: August 29, 2024 End: August 29, 2024 Retail Zone Specialist Relationship Specialty Start Date End Date Robles Charles MD [address] [place] [phone] PCP - General Internal Medicine 07/30/23 Deisy Villar PA [address] [place] [address] [place] [address] PCP - Medical [employer] 11/30/23 11/29/99 Retail Zone Specialist Relationship Specialty Start Date End Date Robles Charles MD [address] [place] [phone] PCP - General Internal Medicine 07/30/23 Deisy Villar PA [address] [place] [address] [place] [address] PCP - Medical [employer] 11/30/23 11/29/99 Retail Zone Specialist Relationship Specialty Start Date End Date Robles Charles MD [address] [facility] [place] [phone] PCP - General Internal Medicine 07/30/23 Deisy Villar PA [facility] [place] [address] PCP - Medical [employer] 11/30/23 11/29/99 Team Status: Inactive Member Role Status Dates Robles Charles DO Primary Care Provider Active Start: September 22, 2024 End: September 22, 2024 Delano Francis - [facility] , [facility] Attending Provider Active Start: September 22, 2024 End: September 22, 2024 Team Status: Active Member Role Status Dates Robles Charles DO Primary Care Provide r, Attending Provider Active Start: October 14, 2024 Team Status: Inactive Member Role Status Dates Robles Charles DO Primary Care Provide r, Attending Provider Active Start: October 18, 2024 End: October 18, 2024 Retail Zone Specialist Relationship Specialty Start Date End Date Robles Charles MD [address] [place] [phone] PCP - General Internal Medicine 07/30/23 Deisy Villar PA [address] [place] [address] [place] [address] PCP - Medical [employer] 11/30/23 11/29/99 Retail Zone Specialist Relationship Specialty Start Date End Date Robels Charles MD [address] [place] [phone] PCP - General Internal Medicine 07/30/23 Deisy Villar PA [address] [place] [address] [place] [address] PCP - Medical [employer] 11/30/23 11/29/99 Retail Zone Specialist Relationship Specialty Start Date End Date Robles Charles MD [address] [place] [phone] PCP - General Internal Medicine 07/30/23 Deisy Villar PA [facility] [place] [address] PCP - Medical [employer] 11/30/23 11/29/99 Retail Zone Specialist Relationship Specialty Start Date End Date Robles Charles MD [address] [facility] [place] [phone] PCP - General Internal Medicine 07/30/23 Deisy Villar PA [address] [place] [address] [place] [address] PCP - Medical [employer] 11/30/23 11/29/99 Retail Zone Specialist Relationship Specialty Start Date End Date Robles Charles MD PCP - General Internal Medicine 07/30/23 Deisy Villar PA [address] [place] [address] [place] [address] PCP - Medical [employer] 11/30/23 11/29/99 Retail Zone Specialist Relationship Specialty Start Date End Date Robles Charles DO PCP - General Internal Medicine 07/30/23 Deisy Villar PA [address] [place], [place] [address] [address] PCP - Medical [employer] 11/30/23 11/29/99 Retail Zone Specialist Relationship Specialty Start Date End Date Robles Charles DO [address] [facility] [place] [phone] PCP - General Internal Medicine 07/30/23 Deisy Villar PA [address] [place] [address] PCP - Medical [employer] 11/30/23 11/29/99 Retail Zone Specialist Relationship Specialty Start Date End Date Robles Charles DO [address] [place] [address] PCP - General Internal Medicine 07/30/23 Deisy Villar PA [facility] [place] [place], [facility] PCP - Medical [employer] 11/30/23 11/29/99 Retail Zone Specialist Relationship Specialty Start Date End Date Robles Charles DO [address] [place] [address] PCP - General Internal Medicine 07/30/23 Deisy Villar PA [address] [place] [address] [place], [place] [address] PCP - Medical [employer] 11/30/23 11/29/99 Retail Zone Specialist Relationship Specialty Start Date End Date Robles Charles DO [address] [facility] [place] [phone] PCP - General Internal Medicine 07/30/23 Deisy Villar PA [address] [place], [place] [address], [facility] PCP - Medical [employer] 11/30/23 11/29/99 Retail Zone Specialist Relationship Specialty Start Date End Date Robles Charles DO [address] [facility] [place] [address] PCP - General Internal Medicine 07/30/23 Deisy Villar PA [facility] [address] [place], [place] [phone] PCP - Medical [employer] 11/30/23 11/29/99 Retail Zone Specialist Relationship Specialty Start Date End Date Robles Charles DO [address] [facility] [place] [phone] PCP - General Internal Medicine 07/30/23 Deisy Villar PA [address] [place] [address] [place] [address] PCP - Medical [employer] 11/30/23 11/29/99 Retail Zone Specialist Relationship Specialty Start Date End Date Robles Charles DO [address] [facility] [place] [phone] PCP - General Internal Medicine 07/30/23 Deisy Villar PA [address] [place] [address] [place] [address] PCP - Medical [employer] 11/30/23 11/29/99 Retail Zone Specialist Relationship Specialty Start Date End Date Robles Charles DO [address] [facility] [place] [phone] PCP - General Internal Medicine 07/30/23 Deisy Villar PA [address] [place] [address] [place] [address] PCP - Medical [employer] 11/30/23 11/29/99 Retail Zone Specialist Relationship Specialty Start Date End Date Robles Charles DO [address] [facility] [place] [phone] PCP - General Internal Medicine 07/30/23 Deisy Villar PA [address] [place] [address] [place] [address] PCP - Medical [employer] 11/30/23 11/29/99 Goals (unrecognized section and content) Goals may be documented in a n alternate section INFORMATION SOURCE (unrecogn ized section and content) DATE CREATED AUTHOR 09/02/2022 [facility] DATE CREATED AUTHOR AUTHOR'S ORGANIZ ATION 09/23/2024 [facility] DATE CREATED AUTHOR AUTHOR'S ORGANIZ ATION 07/25/[address] [facility] d[facility] Specialists EPIC FOR RECORDS PERTAINING [...] BE BASED ON THE PRIMARY CLINICAL RECORDS. [facility] [employer] [facility]. provides no warranty or guarantee of the accuracy or completeness of information in this document.
[2025-07-29 08:24] VITALS: BP 121/78; PULSE 61
== END 2025-07-29 08:56 | disposition home or self-care (01) ==
LOC: US 07:49 → FBC 07:56
PROVIDERS: PCP Internal Medicine; Visit Provider Obstetrics & Gynecology
DX: O09.523 Supervision of elderly multigravida, third trimester (principal); Z3A.38 38 weeks gestation of pregnancy
CPT/HCPCS: 76818

== ENCOUNTER 2025-08-05 07:57 | Outpatient (OUT) | payer OTHER, SELFPAY ==
--- OUTSIDE RECORDS SUMMARY | 2025-08-05 08:00 | XMS_ITS | CCD ---
Author Organization [facility] Care Team Providers Care Campus Police Officer Name Role Phone Subha Dillon Unavailable Elsi Mayer Unavailable MD Liz Conteh Primary Care Provider [phone] DO Delano Francis Attending Provider [phone] SITA, DR LUJAN Consulting Unavailable SITA, DR LUJAN Admitting Unavailable REQUEST, DR RAIN LISTED Primary Care Unavaila jt BUCKNER, DR LUJAN Attending Unavailable NLEA, DR SEARS Attending Unavailable NELA, DR SEARS Consulting Unavailable NELA, DR SEARS Admitting Unavailable REQUEST, DR RAIN LISTED Primary Care Unavaila Kiya Gonsalves Unavailable MD Derick Timmons Attending Provider SHANNON Schaffer Attending Provider [phone] Robles Charles Unavailable MD Liz Conteh Primary Care Provider DO Delano Francis Attending Provider [phone] QUANG Villar Attending Provider DO Robles [...] Unavailable Robles Charles DO Primary Care Provider [phone] [facility] Delano CRESPO Attending Provider Robles [...] (5 sources) Penicillin V Drug Allergy rash [facility] [employer] Other (1 source) Amoxicillin Drug Allergy 0 [facility] Repository (1 source) Penicillins Drug allergy (disorder) [facility] (5 sources) Penicillin Drug Allergy rash [employer] Other (1 source) Substance with penicillin structure and antibacterial mechanism of action (substance) Drug allergy 3 PENICILLINS [facility] [employer] Other (20 sources) Amoxicillin Drug Allergy 3 [facility] (20 sources) Penicillin G Drug Allergy 3 Unknown [facility] (1 source) Penicillins Drug allergy (disorder) 4 [facility] Repository Medications Current Medications Medication Drug Class(es) [...] capsule (20 sources) Proton Pump Inhibitor Start: 09-17-2024 take 1 capsule by mouth once daily [...] 12/22/2024 02/02/2025 Active Pre- (10 sources) [facility] Active MV-Min-Fe Fum-FA-DH [...] [37 weeks gestation of ] 07-24-2025 Episodic Residual codes; unclassified (2 sources) Gestation period, 39 weeks; Translations: [39 weeks gestation of ] 08-03-2025 Episodic Unclassified (1 source) Endocrine disorder, unspecified; Translations: [Endocrine disorder, unspecified] Onset: Past or Other Problems Problem Classification Problem Date Documented Da te Episodic/Chronic Unclassified (1 source) Contact with and (suspected) exposure to covid-19 Z20.822 Viral infection (1 source) COVID-19 Onset: 12-27-2021 Resolved: 12-27-2021 Results Test Name Value Interpretation Reference Range Facility Urinalysis macro (dipstick) panel (U)on 08-03-2025 Bilirubin, UA Negative Negative - 4(70) +++ mg/dL [facility] Blood, UA Negative Negative - 50 Ezequiel/mcL [facility] Clarity, UA Clear [facility] Color, UA Yellow [facility] Glucose, UA Negative Negative - 2000(110) ++++ mg/dL [facility] Interpretation and review of laboratory results Abnormal [facility] Ketones, UA Negative Negative - 160(16) ++++ mg/dL [facility] Leukocytes, UA Positive Negative - 500+++ Jason/mcL [facility] Nitrite, UA Negative Negative - Positive [facility] pH, UA 6 5 - 9 [facility] Protein, UA Negative Negative - 2000(20) ++++ mg/dL [facility] Spec Grav, UA 1.015 1 - 1.03 [facility] Urobilinogen, UA 1.0 0.2 - 12 mg/dL [facility] US OB BPP W NON-STRESS on 07-29-2025 [place] [address] Ultrasound Report Signed Patient: ANGELA REYES MR#: [id number] : 1990 Acct:[id number] Age/Sex: 35 / F ADM Date: 07/29/25 Loc: US Attending Dr: Ángel Buckner D.O. Ordering Physician: Ángel Buckner D.O. Date of Service: 07/29/25 Procedure(s): US OB BPP w non-stress Accession Number(s): [id number] cc: Robles Charles D.O.; Ánegl Buckner D.O. [place] [id number] Patient Name: ANGELA REYES MRN: [facility]H:[id number] date: 1990 Sex: F Assigned Patient Location: [facility] Current Patient Location: Accession/Order Number: [id number] Exam Date: 07/29/2025 08:02 Report Date: 07/29/2025 11:10 At the request of: ÁNGEL BUCKNER DO Procedure: US OB BPP w non-stress US OB BPP w non-stress 07/29/2025 8:43 AM SIGNS AND SYMPTOMS: ADVANCED MATERNAL AGE O09.523 PROTOCOL: Transabdominal sonographic imaging of the gravid uterus COMPARISON: None FINDINGS: heart rate: 173 bpm Amniotic fluid index: 14.55 cm. The deeper vertical pocket measures 4.61 cm. Estimated gestational age: 38 weeks and 3 days Biophysical profile: breathing movements: 2/2 Gross body movements: 2/2 tone: 2/2 Amniotic fluid volume: 2/2 US/US OB BPP w non-stress IMPRESSION: Biophysical profile: 07/07 Impression dictated by: Roddy Yusuf M.D. 07/29/2025 11:10 AM Dictation Location: [place] [address] Electronically authenticated by: [id number] Y Date: 07/29/2025 11:10 Dictated By: Roddy Yusuf M.D. Signed By: 07/29/25 1112 DD/ 1110 TD/TT: Assurance Assistant: [facility] Radiology, Radiologi MD ember - 07/29/2025 [place] [address] Ultrasound Report Signed Patient: ANGELA REYES MR#: [id number] : 1990 Acct:[id number] Age/Sex: 35 / F ADM Date: 07/29/25 Loc: US Attending Dr: Ángel Buckner D.O. Ordering Physician: Ángel Buckner D.O. Date of Service: 07/29/25 Procedure(s): US OB BPP w non-stress Accession Number(s): [id number] cc: Robles Charles D.O.; Ángel Buckner D.O. The [place] [address] Patient Name: ANGELA REYES MRN: [facility]:[id number] date: 1990 Sex: F Assigned Patient Location: [facility] Current Patient Location: Accession/Order Number: [id number] Exam Date: 07/29/2025 08:02 Report Date: 07/29/2025 11:10 At the request of: ÁNGEL BUCKNER DO Procedure: US OB BPP w non-stress US OB BPP w non-stress 07/29/2025 8:43 AM SIGNS AND SYMPTOMS: ADVANCED MATERNAL AGE O09.523 PROTOCOL: Transabdominal sonographic imaging of the gravid uterus COMPARISON: None FINDINGS: heart rate: 173 bpm Amniotic fluid index: 14.55 cm. The deeper vertical pocket measures 4.61 cm. Estimated gestational age: 38 weeks and 3 days Biophysical profile: breathing movements: 2/2 Gross body movements: 2/2 tone: 2/2 Amniotic fluid volume: 2/2 US/US OB BPP w non-stress IMPRESSION: Biophysical profile: 07/07 Impression dictated by: Roddy Yusuf M.D. 07/29/2025 11:10 AM Dictation Location[facility] Electronically authenticated by: [id number] Y Date: 07/29/2025 11:10 Dictated By: Roddy Yusuf M.D. Signed By: 07/29/25 1112 DD/ 1110 TD/TT: Assurance Assistant: [facility] Radiology Study observation (narrative) [facility] US OB BPP W NON-STRESS Ordered By: Radiologist Radiology on 07-29-2025 [facility] Work Phone: Urinalysis macro (dipstick) panel (U)on 07-24-2025 Bilirubin, UA Negative Negative - 4(70) +++ mg/dL [facility] Blood, UA Negative Negative - 50 Ezequiel/mcL [facility] Clarity, UA Clear [facility] Color, UA Christine [facility] Glucose, UA Negative Negative - 2000(110) ++++ mg/dL [facility] Interpretation and review of laboratory results Abnormal [facility] Ketones, UA Negative Negative - 160(16) ++++ mg/dL [facility] Leukocytes, UA Positive Negative - 500+++ Jason/mcL [facility] Comment on above: 1+ Nitrite, UA Negative Negative - Positive [facility] pH, UA 6 5 - 9 [facility] Protein, UA Positive Negative - 2000(20) ++++ mg/dL [facility] Comment on above: 0.15 g/L Spec Grav, UA 1.015 1 - 1.03 [facility] Urobilinogen, UA 0.2 0.2 - 12 mg/dL [facility] US OB BPP W NON-STRESS on 07-22-2025 [place] [address] Ultrasound Report Signed Patient: ANGELA REYES MR#: [id number] : 1990 Acct:[id number] Age/Sex: 35 / F ADM Date: 07/22/25 Loc: US Attending Dr: Ángel Buckner D.O. Ordering Physician: Ángel Buckner D.O. Date of Service: 07/22/25 Procedure(s): US OB BPP w non-stress Accession Number(s): [id number] cc: Robles Charles D.O.; Ángel Buckner D.O. [place] [address] Patient Name: ANGELA REYES MRN: [facility]:[id number] date: 1990 Sex: F Assigned Patient Location: US Current Patient Location: Accession/Order Number: [id number] Exam Date: 07/22/2025 07:58 Report Date: 07/22/2025 [...] Yusuf M.D. 07/22/2025 5:02 PM Dictation Location: [place] [address] Electronically authenticated by: [id number] Y Date: 07/22/2025 17:02 Dictated By: Roddy Yusuf M.D. Signed By: 07/22/252015 DD/ 01 TD/TT: Assurance Assistant: [facility] Radiology, Radiologi MD ember - 07/22/2025 The [place] [id number] Ultrasound Report Signed Patient: ANGELA REYES MR#: [id number] : 1990 Acct:[id number] Age/Sex: 35 / F ADM Date: 07/22/25 Loc: US Attending Dr: Ángel Buckner D.O. Ordering Physician: Ángel Buckner D.O. Date of Service: 07/22/25 Procedure(s): US OB BPP w non-stress Accession Number(s): [id number] cc: Robles Charles D.O.; Ángel Buckner D.O. [place] [address] Patient Name: ANGELA REYES MRN: [facility]H:[id number] date: 1990 Sex: F Assigned Patient Location: US Current Patient Location: Accession/Order Number: [id number] Exam Date: 07/22/2025 07:58 Report Date: 07/22/2025 [...] Yusuf M.D. 07/22/2025 5:02 PM Dictation Location: [place] [address] Electronically authenticated by: [id number] Y Date: 07/22/2025 17:02 Dictated By: Roddy Yusuf M.D. Signed By: 07/22/252015 DD/ 01 TD/TT: Assurance Assistant: [facility] Radiology Study observation (narrative) [facility] US OB BPP W NON-STRESS Ordered By: Radiologist Radiology on 07-22-2025 [facility] Work Phone: Urinalysis macro (dipstick) panel (U)on 07-17-2025 Bilirubin, UA Negative Negative - 4(70) +++ mg/dL [facility] Blood, UA Negative Negative - 50 Ezequiel/mcL [facility] Clarity, UA Clear [facility] Color, UA Yellow [facility] Glucose, UA Negative Negative - 2000(110) ++++ mg/dL [facility] Interpretation and review of laboratory results Abnormal [facility] Ketones, UA Negative Negative - 160(16) ++++ mg/dL [facility] Leukocytes, UA Positive Negative - 500+++ Jason/mcL [facility] Comment on above: 2+ Nitrite, UA Negative Negative - Positive [facility] pH, UA 6 5 - 9 [facility] Protein, UA Negative Negative - 1999(20) ++++ mg/dL [facility] Spec Grav, UA 1.015 1 - 1.03 [facility] Urobilinogen, UA 1.0 0.2 - 12 mg/dL [facility] US OB BPP W NON-STRESS on 07-15-2025 [place] [address] Ultrasound Report Signed Patient: ANGELA REYES MR#: [id number] : 1990 Acct:[id number] Age/Sex: 35 / F ADM Date: 07/15/25 Loc: US Attending Dr: Ángel Buckner D.O. Ordering Physician: Ángel Buckner D.O. Date of Service: 07/15/25 Procedure(s): US OB BPP w non-stress Accession Number(s): [id number] cc: Robles Charles D.O.; Ángel Buckner D.O. [address] [address] Patient Name: ANGELA REYES MRN: [id number] date: 1990 Sex: F Assigned Patient Location: [facility] Current Patient Location: Accession/Order Number: [id number] Exam Date: 07/15/2025 09:17 Report Date: 07/15/2025 09:18 At the request of: ÁNGEL BUCKNER DO Procedure: US OB BPP w non-stress Biophysical profile. Reason for exam: Advanced maternal age COMPARISON: 07/08/2025 TECHNIQUE: Transabdominal imaging of the gravid uterus was obtained. FINDINGS: The tree inspector reports a BPP of 8 out of 8. MARTY is normal at 14 cm. heart rate 136 bpm. US/US OB BPP w non-stress IMPRESSION: BPP 8 out of 8. Impression dictated by: Justin Mack Jr., D.O. 07/15/2025 9:18 AM Dictation Location: [place] [address] Electronically authenticated by: [id number] Y Date: 07/15/2025 09:18 Dictated By: Justin Mack M.D. Signed By: 07/15/25919 DD/ 7 TD/TT: Assurance Assistant: [facility] Radiology Radiologbrittanie pa MD - 07/15/2025 [place] [address] Ultrasound Report Signed Patient: ANGELA REYES MR#: [id number] : 1990 Acct:[id number] Age/Sex: 35 / F ADM Date: 07/15/25 Loc: US Attending Dr: Ángel Buckner D.O. Ordering Physician: Ángel Buckner D.O. Date of Service: 07/15/25 Procedure(s): US OB BPP w non-stress Accession Number(s): [id number] cc: Robles Charles D.O.; Ángel Buckner D.O. The [address] [address] Patient Name: ANGELA REYES MRN: [facility]:[id number] date: 1990 Sex: F Assigned Patient Location: [facility] Current Patient Location: Accession/Order Number: [id number] Exam Date: 07/15/2025 09:17 Report Date: 07/15/2025 09:18 At the request of: ÁNGEL BUCKNER DO Procedure: US OB BPP w non-stress Biophysical profile. Reason for exam: Advanced maternal age COMPARISON: 07/08/2025 TECHNIQUE: Transabdominal imaging of the gravid uterus was obtained. FINDINGS: The tree inspector reports a BPP of 8 out of 8. MARTY is normal at 14 cm. heart rate 136 bpm. US/US OB BPP w non-stress IMPRESSION: BPP 8 out of 8. Impression dictated by: Justin Mack Jr., D.O. 07/15/2025 9:18 AM Dictation Location: [place] [address] Electronically authenticated by: [id number] Y Date: 07/15/2025 09:18 Dictated By: Justin Mcak M.D. Signed By: 07/15/25919 DD/ 7 TD/TT: Assurance Assistant: [facility] Radiology Study observation (narrative) [facility] US OB BPP W NON-STRESS Ordered By: Radiologist Radiology on 07-15-2025 [facility] Work Phone: Urinalysis macro (dipstick) panel (U)on 07-10-2025 Bilirubin, UA Negative Negative - 4(70) +++ mg/dL [facility] Blood, UA Negative Negative - 50 Ezequiel/mcL [facility] Clarity, UA Clear [facility] Color, UA Yellow [facility] Glucose, UA Negative Negative - 1999(110) ++++ mg/dL [facility] Interpretation and review of laboratory results Abnormal [facility] Ketones, UA Negative Negative - 160(16) ++++ mg/dL [facility] Leukocytes, UA Positive Negative - 500+++ Jason/mcL [facility] Comment on above: small Nitrite, UA Negative Negative - Positive [facility] pH, UA 6 5 - 9 [facility] Protein, UA Negative Negative - 2000(20) ++++ mg/dL [facility] Spec Grav, UA 1.015 1 - 1.03 [facility] Urobilinogen, UA 0.2 0.2 - 12 mg/dL [facility] US OB BPP W NON-STRESS on 07-08-2025 [place] [address] Ultrasound Report Signed Patient: ANGELA REYES MR#: [id number] : 1990 Acct:[id number] Age/Sex: 35 / F ADM Date: 07/08/25 Loc: US Attending Dr: Ángel Buckner D.O. Ordering Physician: Ángel Buckner D.O. Date of Service: 07/08/25 Procedure(s): US OB BPP w non-stress Accession Number(s): [id number] cc: Robles Charles D.O.; Ángel Buckner D.O. The [place] [address] Patient Name: ANGELA REYES MRN: [facility]:[id number] date: 1990 Sex: F Assigned Patient Location: [facility] Current Patient Location: Accession/Order Number: [id number] Exam Date: 07/08/2025 09:19 Report Date: 07/08/2025 09:19 At the request of: ÁNGEL BUCKNER DO Procedure: US OB BPP w non-stress Biophysical profile. Reason for exam: History of miscarriage COMPARISON: 07/01/2025 TECHNIQUE: Transabdominal imaging of the gravid uterus was obtained. FINDINGS: The tree inspector reports a BPP of 8 out of 8. MARTY is normal at 12.5 cm. heart rate 135 bpm. US/US OB BPP w non-stress IMPRESSION: BPP 8 out of 8. Impression dictated by: Justin Mack Jr., D.O. 07/08/2025 9:19 AM Dictation Location: [place] [address] Electronically authenticated by: [id number] Y Date: 07/08/2025 09:19 Dictated By: Justin Mack M.D. Signed By: 07/08/2522 DD/ 8 TD/TT: Assurance Assistant: [facility] Radiology, Radiologi MD ember - 07/08/[address] [address] Ultrasound Report Signed Patient: ANGELA REYES MR#: [id number] : 1990 Acct:[id number] Age/Sex: 35 / F ADM Date: 07/08/25 Loc: US Attending Dr: Ángel Buckner D.O. Ordering Physician: Ángel Buckner D.O. Date of Service: 07/08/25 Procedure(s): US OB BPP w non-stress Accession Number(s): [id number] cc: Robles Charles D.O.; Ángel Buckner D.O. The [place] [id number] Patient Name: ANGELA REYES MRN: [id number]:[id number] date: 1990 Sex: F Assigned Patient Location: [facility] Current Patient Location: Accession/Order Number: [id number] Exam Date: 07/08/2025 09:19 Report Date: 07/08/2025 09:19 At the request of: ÁNGEL BUCKNER DO Procedure: US OB BPP w non-stress Biophysical profile. Reason for exam: History of miscarriage COMPARISON: 07/01/2025 TECHNIQUE: Transabdominal imaging of the gravid uterus was obtained. FINDINGS: The tree inspector reports a BPP of 8 out of 8. MARTY is normal at 12.5 cm. heart rate 135 bpm. US/US OB BPP w non-stress IMPRESSION: BPP 8 out of 8. Impression dictated by: Justin Mack Jr., D.O. 07/08/2025 9:19 AM Dictation Location: [place] [address] Electronically authenticated by: [id number] Y Date: 07/08/2025 09:19 Dictated By: Justin Mack M.D. Signed By: 07/08/25921 DD/ 8 TD/TT: Assurance Assistant: [facility] Radiology Study observation (narrative) [facility] US OB BPP W NON-STRESS Ordered By: Radiologist Radiology on 07-08-2025 [facility] Work Phone: US OB BPP W NON-STRESS on 07-01-2025 [place] [address] Ultrasound Report Signed Patient: ANGELA REYES MR#: [id number] : 1990 Acct:[id number] Age/Sex: 35 / F ADM Date: 07/01/25 Loc: US Attending Dr: Ángel Buckner D.O. Ordering Physician: Ángel Buckner D.O. Date of Service: 07/01/25 Procedure(s): US OB BPP w non-stress Accession Number(s): [id number] cc: Robles Charles D.O.; Ángel Buckner D.O. [place] [address] Patient Name: ANGELA REYES MRN: [id number] date: 1990 Sex: F Assigned Patient Location: [facility] Current Patient Location: Accession/Order Number: [id number] Exam Date: 07/01/2025 20:05 Report Date: 07/01/2025 [...] Yusuf M.D. 07/01/2025 8:07 PM Dictation Location: [place] [address] Electronically authenticated by: [id number] Y Date: 07/01/2025 20:07 Dictated By: Roddy Yusuf M.D. Signed By: 07/01/252008 DD/ 06 TD/TT: Assurance Assistant: [facility] RadiologyNeelimaogbrittanie pa MD - 07/01/2025 [place] [address] Ultrasound Report Signed Patient: ANGELA REYES MR#: [id number] : 1990 Acct:[id number] Age/Sex: 35 / F ADM Date: 07/01/25 Loc: US Attending Dr: Ángel Buckner D.O. Ordering Physician: Ángel Buckner D.O. Date of Service: 07/01/25 Procedure(s): US OB BPP w non-stress Accession Number(s): [id number] cc: Robles Charles D.O.; Ángel Buckner D.O. The [place] [address] Patient Name: ANGELA REYES MRN: [facility]:[id number] date: 1990 Sex: F Assigned Patient Location: [facility] Current Patient Location: Accession/Order Number: [id number] Exam Date: 07/01/2025 20:05 Report Date: 07/01/2025 [...] Yusuf M.D. 07/01/2025 8:07 PM Dictation Location: [facility] [employer] Electronically authenticated by: [id number] Y Date: 07/01/2025 20:07 Dictated By: Roddy Yusuf M.D. Signed By: 07/01/252008 DD/ 06 TD/TT: Assurance Assistant: [facility] Radiology Study observation (narrative) [facility] US OB BPP W NON-STRESS Ordered By: Radiologist Radiology on 07-01-2025 [facility] Work Phone: US OB FOLLOW UP [...] II, MD, PHD at 26-Jun-2025 11:42:39 PM [facility] Normal Not Available Comment on above: Order Comment: US OB SCAN FOR GROWTH Estimated Date of Delivery: 08/09/25 Gestational Age as of 06/12/2025: 31w5d Urinalysis macro (dipstick) panel (U)on 06-26-2025 Bilirubin, UA Negative Negative - 4(70) +++ mg/dL [facility] Blood, UA Negative Negative - 50 Ezequiel/mcL [facility] Clarity, UA Clear [facility] Color, UA Yellow [facility] Glucose, UA Negative Negative - 1999(110) ++++ mg/dL [facility] Interpretation and review of laboratory results Normal [facility] Ketones, UA Negative Negative - 160(16) ++++ mg/dL [facility] Leukocytes, UA Negative Negative - 500+++ Jason/mcL [facility] Nitrite, UA Negative Negative - Positive [facility] pH, UA 6.5 5 - 9 [facility] Protein, UA Negative Negative - 2000(20) ++++ mg/dL [facility] Spec Grav, UA 1.01 1 - 1.03 [facility] Urobilinogen, UA 1.0 0.2 - 12 mg/dL [facility] US OB BPP W NON-STRESS on 06-24-2025 [place] [address] Ultrasound Report Signed Patient: ANGELA REYES MR#: [id number] : 1990 Acct:[id number] Age/Sex: 35 / F ADM Date: 06/24/25 Loc: US Attending Dr: Ángel Buckner D.O. Ordering Physician: Ángel Buckner D.O. Date of Service: 06/24/25 Procedure(s): US OB BPP w non-stress Accession Number(s): [id number] cc: Robles Charles D.O.; Ángel Buckner D.O. [place] [id number] Patient Name: ANGELA REYES MRN: [id number]:[id number] date: 1990 Sex: F Assigned Patient Location: US Current Patient Location: Accession/Order Number: [id number] Exam Date: 06/24/2025 09:33 Report Date: 06/24/2025 09:34 At the request of: ÁNGEL BUCKNER DO Procedure: US OB BPP w non-stress Biophysical profile. Reason for exam: History of miscarriage COMPARISON: 06/17/2025 TECHNIQUE: Transabdominal imaging of the gravid uterus was obtained. FINDINGS: The tree inspector reports a BPP of 8 out of 8. MARTY is normal at 15 cm. heart rate 130 bpm. US/US OB BPP w non-stress IMPRESSION: BPP 8 out of 8. Impression dictated by: Justin Mack Jr., D.O. 06/24/2025 9:34 AM Dictation Location: [place] [address] Electronically authenticated by: [id number] Y Date: 06/24/2025 09:34 Dictated By: Justin Mack M.D. Signed By: 06/24/2536 DD/ 3 TD/TT: Assurance Assistant: [facility] RadiologyNeelimaogbrittanie pa MD - 06/24/2025 [place] [address] Ultrasound Report Signed Patient: ANGELA REYES MR#: [id number] : 1990 Acct:[id number] Age/Sex: 35 / F ADM Date: 06/24/25 Loc: US Attending Dr: Ángel Buckner D.O. Ordering Physician: Ángel Buckner D.O. Date of Service: 06/24/25 Procedure(s): US OB BPP w non-stress Accession Number(s): [id number] cc: Robles Charles D.O.; Ángel Buckner D.O. The [place] [id number] Patient Name: ANGELA REYES MRN: [facility]:[id number] date: 1990 Sex: F Assigned Patient Location: Current Patient Location: Accession/Order Number: [id number] Exam Date: 06/24/2025 09:33 Report Date: 06/24/2025 09:34 At the request of: ÁNGEL BUCKNER DO Procedure: US OB BPP w non-stress Biophysical profile. Reason for exam: History of miscarriage COMPARISON: 06/17/2025 TECHNIQUE: Transabdominal imaging of the gravid uterus was obtained. FINDINGS: The tree inspector reports a BPP of 8 out of 8. MARTY is normal at 15 cm. heart rate 130 bpm. US/US OB BPP w non-stress IMPRESSION: BPP 8 out of 8. Impression dictated by: Justin Mack Jr., D.O. 06/24/2025 9:34 AM Dictation Location: [place] [address] Electronically authenticated by: [id number] Y Date: 06/24/2025 09:34 Dictated By: Justin Mack M.D. Signed By: 06/24/2536 DD/ 3 TD/TT: Assurance Assistant: [facility] Radiology Study observation (narrative) [facility] US OB BPP W NON-STRESS Ordered By: Radiologist Radiology on 06-24-2025 [facility] Work Phone: US OB BPP W NON-STRESS on 06-17-2025 [place] [address] Ultrasound Report Signed Patient: ANGELA REYES MR#: [id number] : 1990 Acct:[id number] Age/Sex: 35 / F ADM Date: 06/17/25 Loc: [place] [address]: Ángel Buckner D.O. Ordering Physician: Ángel Buckner D.O. Date of Service: 06/17/25 Procedure(s): US OB BPP w non-stress Accession Number(s): [id number] cc: Robles Charles D.O.; Ángel Buckner D.O. The [place] [address] Patient Name: ANGELA REYES MRN: [facility]:[id number] date: 1990 Sex: F Assigned Patient Location: [facility] Current Patient Location: [facility] Accession/Order Number: [id number] Exam Date: 06/17/2025 09:17 Report Date: 06/17/2025 [...] Ramachandran M.D. 06/17/2025 9:20 AM Dictation Location: [place] [address] Electronically authenticated by: [id number] Y Date: 06/17/2025 09:20 Dictated By: Carlton Ramachandran M.D. Signed By: 06/17/25921 DD/ 9 TD/TT: Assurance Assistant: [facility] RadiologyNeelimaogbrittanie pa MD - 06/17/2025 [place] [address] Ultrasound Report Signed Patient: ANGELA REYES MR#: [id number] : 1990 Acct:[id number] Age/Sex: 35 / F ADM Date: 06/17/25 Loc: [facility] 250-[address]: Ángel Buckner D.O. Ordering Physician: Ángel Buckner D.O. Date of Service: 06/17/25 Procedure(s): US OB BPP w non-stress Accession Number(s): [id number] cc: Robles Charles D.O.; Ángel Buckner D.O. The [place] [id number] Patient Name: ANGELA REYES MRN: [facility]:[id number] date: 1990 Sex: F Assigned Patient Location: [facility] Current Patient Location: [facility] Accession/Order Number: [id number] Exam Date: 06/17/2025 09:17 Report Date: 06/17/2025 [...] Ramachandran M.D. 06/17/2025 9:20 AM Dictation Location: [place] [address] Electronically authenticated by: [id number] Y Date: 06/17/2025 09:20 Dictated By: Carlton Ramachandran M.D. Signed By: 06/17/25921 DD/ 9 TD/TT: Assurance Assistant: [facility] Radiology Study observation (narrative) [facility] US OB BPP W NON-STRESS Ordered By: Radiologist Radiology on 06-17-2025 [facility] Work Phone: US OB BPP W NON-STRESS on 06-10-2025 [place] [address] Ultrasound Report Signed Patient: ANGELA REYES MR#: [id number] : 1990 Acct:[id number] Age/Sex: 35 / F ADM Date: 06/10/25 Loc: US Attending Dr: Ángel Buckner D.O. Ordering Physician: Ángel Buckner D.O. Date of Service: 06/10/25 Procedure(s): US OB BPP w non-stress Accession Number(s): [id number] cc: Robles Charles D.O.; Ángel Buckner D.O. [place] [id number] Patient Name: ANGELA REYES MRN: [facility]:[id number] date: 1990 Sex: F Assigned Patient Location: [facility] Current Patient Location: Accession/Order Number: [id number] Exam Date: 06/10/2025 18:36 Report Date: 06/10/2025 [...] Yusuf M.D. 06/10/2025 6:38 PM Dictation Location: [place] [address] Electronically authenticated by: [id number] Y Date: 06/10/2025 18:38 Dictated By: Roddy Yusuf M.D. Signed By: 06/10/251840 DD/ 37 TD/TT: Assurance Assistant: [facility] Radiology Radiologbrittanie pa MD - 06/10/2025 [place] [address] Ultrasound Report Signed Patient: ANGELA REYES MR#: [id number] : 1990 Acct:[id number] Age/Sex: 35 / F ADM Date: 06/10/25 Loc: US Attending Dr: Ángel Buckner D.O. Ordering Physician: Ángel Buckner D.O. Date of Service: 06/10/25 Procedure(s): US OB BPP w non-stress Accession Number(s): [id number] cc: Robles Charles D.O.; Ángel Buckner D.O. The [place] [id number] Patient Name: ANGELA REYES MRN: [facility]:[id number] date: 1990 Sex: F Assigned Patient Location: [facility] Current Patient Location: Accession/Order Number: [id number] Exam Date: 06/10/2025 18:36 Report Date: 06/10/2025 [...] Yusuf M.D. 06/10/2025 6:38 PM Dictation Location: [place] [address] Electronically authenticated by: [id number] Y Date: 06/10/2025 18:38 Dictated By: Roddy Yusuf M.D. Signed By: 06/10/25 184 DD/ 37 TD/TT: Assurance Assistant: [facility] Radiology Study observation (narrative) [facility] US OB BPP W NON-STRESS Ordered By: Radiologist Radiology on 06-10-2025 [facility] Work Phone: US OB BPP W NON-STRESS on 06-03-2025 [place] [address] Ultrasound Report Signed Patient: ANGELA REYES MR#: [id number] : 1990 Acct:[id number] Age/Sex: 35 / F ADM Date: 06/03/25 Loc: US Attending Dr: Ángel Buckner D.O. Ordering Physician: Ángel Buckner D.O. Date of Service: 06/03/25 Procedure(s): US OB BPP w non-stress Accession Number(s): [id number] cc: Robles Charles D.O.; Ángel Buckner D.O. [place] [id number] Patient Name: ANGELA REYES MRN: [facility]:[id number] date: 1990 Sex: F Assigned Patient Location: [facility] Current Patient Location: Accession/Order Number: [id number] Exam Date: 06/03/2025 14:22 Report Date: 06/03/2025 [...] Durand M.D. 06/03/2025 2:23 PM Dictation Location: [facility] Electronically authenticated by: [id number] Y Date: 06/03/2025 14:23 Dictated By: Aguilar Durand D.O. Signed By: 06/03/25 1425 DD/ 22 TD/TT: Assurance Assistant: [facility] Radiology Radiologbrittanie pa MD - 06/03/2025 [place] [address] Ultrasound Report Signed Patient: ANGELA REYES MR#: [id number] : 1990 Acct:[id number] Age/Sex: 35 / F ADM Date: 06/03/25 Loc: US Attending Dr: Ángel Buckner D.O. Ordering Physician: Ángel Buckner D.O. Date of Service: 06/03/25 Procedure(s): US OB BPP w non-stress Accession Number(s): [id number] cc: Robles Charles D.O.; Ángel Buckner D.O. The [place] [id number] Patient Name: ANGELA REYES MRN: [facility]:[id number] date: 1990 Sex: F Assigned Patient Location: [facility] Current Patient Location: Accession/Order Number: [id number] Exam Date: 06/03/2025 14:22 Report Date: 06/03/2025 [...] Durand M.D. 06/03/2025 2:23 PM Dictation Location: [employer] Electronically authenticated by: [id number] Y Date: 06/03/2025 14:23 Dictated By: Aguilar Durand D.O. Signed By: 06/03/255 DD/ 22 TD/TT: Assurance Assistant: [facility] Radiology Study observation (narrative) [facility] US OB BPP W NON-STRESS Ordered By: Radiologist Radiology on 06-03-2025 [facility] Work Phone: Urinalysis macro (dipstick) panel (U)on 05-30-2025 Bilirubin, UA Negative Negative - 4(70) +++ mg/dL [facility] Blood, UA Negative Negative - 50 Ezequiel/mcL [facility] Clarity, UA Clear [facility] Color, UA Yellow [facility] Glucose, UA Negative Negative - 2000(110) ++++ mg/dL [facility] Interpretation and review of laboratory results Normal [facility] Ketones, UA Negative Negative - 160(16) ++++ mg/dL [facility] Leukocytes, UA Negative Negative - 500+++ Jasno/mcL [facility] Nitrite, UA Negative Negative - Positive [facility] pH, UA 5.5 5 - 9 [facility] Protein, UA Negative Negative - 2000(20) ++++ mg/dL [facility] Spec Grav, UA 1.02 1 - 1.03 [facility] Urobilinogen, UA 1.0 0.2 - 12 mg/dL [facility] US OB GROWTHon 05-11-2025 The [place] [id number] Ultrasound Report Signed Patient: ANGELA REYES MR#: [id number] : 1990 Acct:[id number] Age/Sex: 35 / F ADM Date: 05/11/25 Loc: US Attending Dr: Edson Dewitt Ordering Physician: Edson Dewitt Date of Service: 05/11/25 Procedure(s): US OB growth Accession Number(s): [id number] cc: Robles Charles D.O.; Edson Dewitt The [address] [address] Patient Name: ANGELA REYES MRN: [facility]:[id number] date: 1990 Sex: F Assigned Patient Location: US Current Patient Location: US Accession/Order Number: [id number] Exam Date: 05/11/2025 14:38 Report Date: 05/11/2025 [...] Jr., D.O. 05/11/2025 2:40 PM Dictation Location: [place] [address] Electronically authenticated by: [id number] Y Date: 05/11/2025 14:40 Dictated By: Justin Mack M.D. Signed By: 05/11/25 1442 DD/ 1440 TD/TT: Assurance Assistant: [facility] Radiology, Radiologbrittanie pa MD - 05/11/2025 [place] [address] Ultrasound Report Signed Patient: ANGELA REYES MR#: [id number] : 1990 Acct:[id number] Age/Sex: 35 / F ADM Date: 05/11/25 Loc: US Attending Dr: Edson Dewitt Ordering Physician: Edson Dewitt Date of Service: 05/11/25 Procedure(s): US OB growth Accession Number(s): [id number] cc: Robles Charles D.O.; Edson Dewitt [place] [address] Patient Name: ANGELA REYES MRN: [facility]:[id number] date: 1990 Sex: F Assigned Patient Location: US Current Patient Location: US Accession/Order Number: [id number] Exam Date: 05/11/2025 14:38 Report Date: 05/11/2025 [...] Jr., D.O. 05/11/2025 2:40 PM Dictation Location: [place] [address] Electronically authenticated by: [id number] Y Date: 05/11/2025 14:40 Dictated By: Justin Mack M.D. Signed By: 05/11/25 144 DD/ TD/TT: Assurance Assistant: [facility] Radiology Study observation (narrative) [facility] US OB GROWTHOrdered By: Reg ologist Radiology on 05-11-2025 [facility] Work Phone: ALL CBC WITH AUTO DIFFon BASOPHILS ABSOLUTE AUTO 0 N [facility] Basophils/100 WBC (Bld) 0.2 % 0.2 - 2.0 % [facility] Eosinophils/100 WBC (Bld) 1.2 % 0.9 - 7.0 % [facility] Erythrocyte distribution width (RBC) [Ratio] 13.2 % 11.0 - 15.0 % [facility] Hematocrit (Bld) [Volume fraction] 31.9 % Low 36.0 - 48.0 % [facility] Hemoglobin (Bld) [Mass/Vol] 10.6 g/dL Low 12.0 - 16.0 g/dL [facility] IMMATURE GRANULOCYTES ABS AUTO 0.06 High [facility] Immature granulocytes/100 WBC (Bld) 0.6 % High 0.0 - 0.5 % [facility] Interpretation and review of laboratory results Abnormal [facility] LYMPHOCYTES ABSOLUTE AUTO 1.6 [facility] Lymphocytes/100 WBC (Bld) 15.6 % Low 20.5 - 60.0 % [facility] MCH (RBC) [Entitic mass] 32.6 pg 26.7 - 34.0 pg [facility] MCHC (RBC) [Mass/Vol] 33.2 g/dL 29.9 - 35.2 g/dL [facility] MCV (RBC) [Entitic vol] 98.2 fL 81.0 - 99.0 fL [facility] MONOCYTES ABSOLUTE AUTO 0.6 N [facility] Monocytes/100 WBC (Bld) 6 % 1.7 - 12.0 % [facility] NEUTROPHILS ABSOLUTE AUTO 7.7 High [facility] Neutrophils/100 WBC (Bld) 76.4 % High 43.0 - 75.0 % [facility] Platelet mean volume (Bld) [Entitic vol] 9 fL Low 9.5 - 13.5 fL [facility] TBH EO # 0.1 [facility] TBH PLT 313 [facility] TB RBC 3.25 Low [facility] TB WBC 10.1 [facility] GLUCOSE 1 HOURon 04-18-2025 Glucose [Mass/Vol] 96 mg/dL NINF - 13 0 mg/dL [facility] No Panel Informationon 04-18 CL[facility] US OB LIMITED 1+ FETUSESon 0 [...] II, MD, PHD at 21-Apr-2025 12:15:59 PM [facility] Normal Not Available Comment on above: Order Comment: US OB INCOMPLETE ANATOMY W US OB TRANSVAGINAL Estimated Date of Delivery: 08/09/25 Gestational Age as of 03/30/2025: 21w1d Urinalysis macro (dipstick) panel (U)on 03-30-2025 Bilirubin, UA Negative Negative - 4(70) +++ mg/dL [facility] Blood, UA Negative Negative - 50 Ezequiel/mcL [facility] Clarity, UA Clear [facility] Color, UA Yellow [facility] Glucose, UA Negative Negative - 2000(110) ++++ mg/dL [facility] Interpretation and review of laboratory results Normal [facility] Ketones, UA Negative Negative - 160(16) ++++ mg/dL [facility] Leukocytes, UA Negative Negative - 500+++ Jason/mcL [facility] Nitrite, UA Negative Negative - Positive [facility] pH, UA 7 5 - 9 [facility] Protein, UA Negative Negative - 2000(20) ++++ mg/dL [facility] Spec Grav, UA 1.02 1 - 1.03 [facility] Urobilinogen, UA 0.2 0.2 - 12 mg/dL [facility] US OB ANATOMYon 03-21-2025 [facility] [address] [place] [address] Ultrasound Report Signed Patient: ANGELA REYES MR#: [id number] : 1990 Acct:[id number] Age/Sex: 35 / F ADM Date: 03/20/25 Loc: US Attending Dr: Deisy Villar Ordering Physician: Deisy Villar Date of Service: 03/20/25 Procedure(s): US OB anatomy Accession Number(s): [id number] cc: Deisy Villar; Robles Charles D.O. [place] [address] Patient Name: ANGELA REYES MRN: [facility]:[id number] date: 1990 Sex: F Assigned Patient Location: US Current Patient Location: Accession/Order Number: [id number] Exam Date: 03/21/2025 13:12 Report Date: 03/21/2025 [...] Aguilar Durand M.D.03/21/2025 1:16 PM Dictation Location: [facility] Electronically authenticated by: [id number] Y Date: 03/21/2025 13:16 Dictated By: Aguilar Durand D.O. Signed By: 03/21/25 1319 DD/ 15 TD/TT: Assurance Assistant: [facility] RadiologyNeelimaogbrittanie pa MD - 03/21/2025 [place] [address] Ultrasound Report Signed Patient: ANGELA REYES MR#: [id number] : 1990 Acct:[id number] Age/Sex: 35 / F ADM Date: 03/20/25 Loc: US Attending Dr: Deisy Villar Ordering Physician: Deisy Villar Date of Service: 03/20/25 Procedure(s): US OB anatomy Accession Number(s): [id number] cc: Deisy Villar; Robles Charles D.O. The [place] [id number] Patient Name: ANGELA REYES MRN: [facility]:[id number] date: 1990 Sex: F Assigned Patient Location: US Current Patient Location: Accession/Order Number: [id number] Exam Date: 03/21/2025 13:12 Report Date: 03/21/2025 [...] Aguilar Durand M.D.03/21/2025 1:16 PM Dictation Location: [place] [address] Electronically authenticated by: [id number] Y Date: 03/21/2025 13:16 Dictated By: Aguilar Durand D.O. Signed By: 03/21/25 1319 DD/ 15 TD/TT: Assurance Assistant: [facility] Radiology Study observation (narrative) [facility] US OB ANATOMYOrdered By: Chepe jay Radiology on 03-21-2025 [facility] Work Phone: US OB CERVICAL LENGTHon 03-01 [place] [address] Ultrasound Report Signed Patient: ANGELA REYES MR#: [id number] : 1990 Acct:[id number] Age/Sex: 35 / F ADM Date: 03/20/25 Loc: US Attending Dr: Deisy Villar Ordering Physician: Deisy Villar Date of Service: 03/20/25 Procedure(s): US OB cervical length Accession Number(s): [id number] cc: Deisy Villar; Robles Charles D.O. The [address] [address] Patient Name: ANGELA REYES MRN: [facility]:[id number] date: 1990 Sex: F Assigned Patient Location: US Current Patient Location: Accession/Order Number: [id number] Exam Date: 03/21/2025 09:18 Report Date: 03/21/2025 09:19 At the request of: DEISY VILLAR Procedure: US OB cervical length Ultrasound assessment of the cervical length The cervical length is 3.8 cm. The cervical os is closed. US/US OB cervical length IMPRESSION: #3.8 cm cervical length. Impression dictated by: Aguilar Durand M.D.03/21/2025 9:19 AM Dictation Location: [facility] Electronically authenticated by: [id number] Y Date: 03/21/2025 09:19 Dictated By: Aguilar Durand D.O. Signed By: 03/21/25921 DD/ 8 TD/TT: Assurance Assistant: [facility] Radiology Radiologbrittanie pa MD - 03/21/2025 [place] [address] Ultrasound Report Signed Patient: ANGELA REYES MR#: [id number] : 1990 Acct:[id number] Age/Sex: 35 / F ADM Date: 03/20/25 Loc: US Attending Dr: Deisy Villar Ordering Physician: Deisy Villar Date of Service: 03/20/25 Procedure(s): US OB cervical length Accession Number(s): [id number] cc: Deisy Villar; Robles Charles D.O. The [place] [id number] Patient Name: ANGELA REYES MRN: [facility]:[id number] date: 1990 Sex: F Assigned Patient Location: US Current Patient Location: Accession/Order Number: [id number] Exam Date: 03/21/2025 09:18 Report Date: 03/21/2025 09:19 At the request of: DEISY VILLAR Procedure: US OB cervical length Ultrasound assessment of the cervical length The cervical length is 3.8 cm. The cervical os is closed. US/US OB cervical length IMPRESSION: #3.8 cm cervical length. Impression dictated by: Aguilar Durand M.D.03/21/2025 9:19 AM Dictation Location: [facility] Electronically authenticated by: [id number] Y Date: 03/21/2025 09:19 Dictated By: Aguilar Durand D.O. Signed By: 03/21/[address] DD/ 8 TD/TT: Assurance Assistant: [facility] Radiology Study observation (narrative) [facility] US OB CERVICAL LENGTHOrdered By: Radiologist Radiology on 03-21-2025 [facility] Work Phone: IGP,APTIMA HPV,AGE GDLNon AGE GDLN ACOG TESTING Note . [facility] Comment on above: TESTS RESULT FLAG UN ITS REF RANGE LAB Clinician Provided Cytology Information Source.............Cervix Other.............. No. of containers..01 ThinPrep Vial Age Algo ACOG Lara... 30-65 01 FLAG LEGEND: L-Low Normal,H-High Normal,LL-Alert Low,HH-Alert High <-Panic Low,>-Panic High,A-Abnormal,AA-Critical Abnormal Performed at: 01 =[address] [address] Ilana Heath MD, HPV APTIMA Negative Negative [facility] Comment on above: This nucleic acid am plification test detects fourteen high- risk HPV types (16,18,31,33,35,39,45,51,52,56,58,59,66,68) without differentiation. Performed at: =G - [facility], [place] [id number] Residential Collections: Ilana Heath MD, Phone: [phone] Performed at: - [facility], [place] [id number] Residential Collections: Ilana Heath MD, Phone: [phone] IGP, APTIMA HPV, RFX 16/18,45 Note . [facility] Comment on above: TESTS RESULT FLAG UN ITS REF RANGE LAB DIAGNOSIS: 02 NEGATIVE FOR INTRAEPITHELIAL LESION OR MALIGNANCY. THIS SPECIMEN WAS RESCREENED PART OF OUR SR. MANAGER MARKETING PROGRAM. Specimen adequacy: 02 Satisfactory for evaluation. No endocervical component is identified. Performed by: 03 Eugenia Kennedy, Check Out Clerk (ASCP) QC reviewed by: 02 Meredith Chávez, Metal Polisher And Buffer Apprentice . 02 Note: Note 02 The Pap [...] Abnormal Performed at: 02 WB [facility] [address] [place] [address] Ilana Heath MD, 03 KWCYT [facility] [address] [place] [address] Lloyd Kim MD, SPATULA-ALONE CERVIX [facility] RECURRENT VAGINITIS (HTRX)on 03-03-2025 ATOPOBIUM VAGINAE 0 [facility] ATOPOBIUM VAGINAE Not detected [facility] BVAB 2,3 (BACTERIAL VAGINOSIS ASSOCIATED BACTERIA 2, 3); MOBILUNCUS SPP 0 [facility] BVAB 2,3 (BACTERIAL VAGINOSIS ASSOCIATED BACTERIA 2, 3); MOBILUNCUS SPP Not detected [facility] ANEUDY ALBICANS, PARAPSILOSIS, TROPICALIS 0 [facility] ANEUDY ALBICANS, PARAPSILOSIS, TROPICALIS Not detected [facility] ANEUDY GLABRATA 0 [facility] ANEUDY GLABRATA Not detected [facility] ANEUDY KRUSEI 0 [facility] ANEUDY KRUSEI Not detected [facility] CHLAMYDIA TRACHOMATIS 0 [facility] CHLAMYDIA TRACHOMATIS Not detected N [facility] GARDNERELLA VAGINALIS 0 [facility] GARDNERELLA VAGINALIS Not detected [facility] MEGASPHAERA (TYPES 1, 2) 0 [facility] MEGASPHAERA (TYPES 1, 2) Not detected [facility] MYCOPLASMA GENITALIUM 0 [facility] MYCOPLASMA GENITALIUM Not detected N [facility] NEISSERIA GONORRHOEAE 0 [facility] NEISSERIA GONORRHOEAE Not detected N [facility] TRICHOMONAS VAGINALIS 0 [facility] TRICHOMONAS VAGINALIS Not detected N [facility] Urinalysis macro (dipstick) panel (U)on 03-02-2025 Bilirubin, UA Negative Negative - 4(70) +++ mg/dL [facility] Blood, UA Negative Negative - 50 Ezequiel/mcL [facility] Clarity, UA Clear [facility] Color, UA Yellow [facility] Glucose, UA Negative Negative - 2000(110) ++++ mg/dL [facility] Interpretation and review of laboratory results Normal [facility] Ketones, UA Negative Negative - 160(16) ++++ mg/dL [facility] Leukocytes, UA Negative Negative - 500+++ Jason/mcL [facility] Nitrite, UA Negative Negative - Positive [facility] pH, UA 7 5 - 9 [facility] Protein, UA Negative Negative - 1999(20) ++++ mg/dL [facility] Spec Grav, UA 1.02 1 - 1.03 [facility] Urobilinogen, UA 0.2 0.2 - 12 mg/dL [facility] Urinalysis macro (dipstick) panel (U)on 02-02-2025 Bilirubin, UA Negative Negative - 4(70) +++ mg/dL [facility] Blood, UA Negative Negative - 50 Ezequiel/mcL [facility] Clarity, UA Clear [facility] Color, UA Yellow [facility] Glucose, UA Negative Negative - 1999(110) ++++ mg/dL [facility] Interpretation and review of laboratory results Abnormal [facility] Ketones, UA Negative Negative - 160(16) ++++ mg/dL [facility] Leukocytes, UA Trace Negative - 500+++ Jason/mcL [facility] Nitrite, UA Negative Negative - Positive [facility] pH, UA 6 5 - 9 [facility] Protein, UA Negative Negative - 1999(20) ++++ mg/dL [facility] Spec Grav, UA 1.025 1 - 1.03 [facility] Urobilinogen, UA 0.2 0.2 - 12 mg/dL [facility] ALL CBC WITH AUTO DIFFon BASOPHILS ABSOLUTE AUTO 0 N [facility] Basophils/100 WBC (Bld) 0.4 % 0.2 - 2.0 % [facility] Eosinophils/100 WBC (Bld) 2.2 % 0.9 - 7.0 % [facility] Erythrocyte distribution width (RBC) [Ratio] 12.5 % 11.0 - 15.0 % [facility] Hematocrit (Bld) [Volume fraction] 34 % Low 36.0 - 48.0 % [facility] Hemoglobin (Bld) [Mass/Vol] 11.7 g/dL Low 12.0 - 16.0 g/dL [facility] IMMATURE GRANULOCYTES ABS AUTO 0.03 [facility] Immature granulocytes/100 WBC (Bld) 0.4 % 0.0 - 0.5 % [facility] Interpretation and review of laboratory results Abnormal [facility] LYMPHOCYTES ABSOLUTE AUTO 1.6 [facility] Lymphocytes/100 WBC (Bld) 20.4 % Low 20.5 - 60.0 % [facility] MCH (RBC) [Entitic mass] 31.5 pg 26.7 - 34.0 pg [facility] MCHC (RBC) [Mass/Vol] 34.4 g/dL 29.9 - 35.2 g/dL [facility] MCV (RBC) [Entitic vol] 91.6 fL 81.0 - 99.0 fL [facility] MONOCYTES ABSOLUTE AUTO 0.6 N [facility] Monocytes/100 WBC (Bld) 7.2 % 1.7 - 12.0 % [facility] NEUTROPHILS ABSOLUTE AUTO 5.6 [facility] Neutrophils/100 WBC (Bld) 69.4 % 43.0 - 75.0 % [facility] Platelet mean volume (Bld) [Entitic vol] 9.6 fL 9.5 - 13.5 fL [facility] TBH EO # 0.2 [facility] TBH PLT 302 [facility] TB RBC 3.71 [facility] WBC 8 [facility] CLINISYNC [facility] US OB TRANSVAGINALon 025 US OB [...] II, MD, PHD at 09-Jan-2025 09:10:54 AM [facility] Normal Not Available Comment on above: Order Comment: US OB TRANSVAGINAL No LMP recorded. [facility] PREG QUANT HCGon 025 HCG QUANTITATIVE [id number] mIU/mL [facility] Comment on above: 5-50 0.2-1 WEEK 50-500 1-2 WEEKS 100-5,000 2-3 WEEKS 500-10,000 3-4 WEEKS 1,000-50,000 4-5 WEEKS 10,000-100,000 5-6 WEEKS 15,000-200,000 6-8 WEEKS 10,000-100,000 2[facility] H[facility]on 025 HCG QUANTITATIVE [id number] mIU/mL [facility] Comment on above: 5-50 0.2-1 WEEK 50-500 1-2 WEEKS 100-5,000 2-3 WEEKS 500-10,000 3-4 WEEKS 1,000-50,000 4-5 WEEKS 10,000-100,000 5-6 WEEKS 15,000-200,000 6-8 WEEKS 10,000-100,000 2[facility]ophil %Ordered By: Delano Francis on 09-22-2024 Basophils/100 WBC (Bld) 0.6 % Normal . [facility] Comment on above: Performed By: #### D HEAS, LC T4, [id number], SEROTON, TEST F + T, T3R, THYGLOB AB, ESTRADIOL, TPO, SHBG, ESTRONE, INSULIN, PROG #### [facility] , #### T4F, TRISTEN, TSH3, A1C WTH eA, FILIBERTO, GLU, T3F #### [address] Automated basophil countOrde red By: Delano Francis on 09-22-2024 Basophils (Bld) [#/Vol] 0.0 10*3/uL Normal 0.0-0.2 [facility] Comment on above: Result Comment: PERF ORMED BY: [place] [address] PATHOLOGIST [employer] SAL[employer] ADVISOR JSOE GOEL M.D. Performed By: #### D HEAS, LC T4, [id number], SEROTON, TEST F + T, T3R, THYGLOB AB, ESTRADIOL, TPO, SHBG, ESTRONE, INSULIN, PROG #### [facility] , #### T4F, TRISTEN, TSH3, A1C WTH eA, FILIBERTO, GLU, T3F #### [address] Automated blood monocyte cou ntOrdered By: Delano Francis on 09-22-2024 Monocytes (Bld) [#/Vol] 0.4 10*3/uL Normal 0.0-0.8 [facility] Comment on above: Performed By: #### D HEAS, LC T4, [id number], SEROTON, TEST F + T, T3R, THYGLOB AB, ESTRADIOL, TPO, SHBG, ESTRONE, INSULIN, PROG #### [facility] , #### T4F, TRISTEN, TSH3, A1C WTH eA, FILIBERTO, GLU, T3F #### [facility] [address] [place] [address] Automated eosinophil %Ordere d By: Delano Francis on 09-22-2024 Eosinophils/100 WBC (Bld) 1.7 % Normal . [facility] Comment on above: Performed By: #### D HEAS, LC T4, [id number], SEROTON, TEST F + T, T3R, THYGLOB AB, ESTRADIOL, TPO, SHBG, ESTRONE, INSULIN, PROG #### [facility] , #### T4F, TRISTEN, TSH3, A1C WTH eA, FILIBERTO, GLU, T3F #### [address] Automated eosinophil countOr dered By: Delano Francis on 09-22-2024 Eosinophils (Bld) [#/Vol] 0.1 10*3/uL Normal 0.0-0.45 [facility] Comment on above: Performed By: #### D HEAS, LC T4, [id number], SEROTON, TEST F + T, T3R, THYGLOB AB, ESTRADIOL, TPO, SHBG, ESTRONE, INSULIN, PROG #### [facility] , #### T4F, TRISTEN, TSH3, A1C WTH eA, FILIBERTO, GLU, T3F #### [facility] [address] Automated monocyte %Ordered By: Delano Francis on 09-22-2024 Monocytes/100 WBC (Bld) 8.7 % Normal . [facility] Comment on above: Performed By: #### D HEAS, LC T4, [id number], SEROTON, TEST F + T, T3R, THYGLOB AB, ESTRADIOL, TPO, SHBG, ESTRONE, INSULIN, PROG #### [facility] , #### T4F, TRISTEN, TSH3, A1C WTH eA, FILIBERTO, GLU, T3F #### [facility] [address] [place] [address] Automated neutrophil %Ordere d By: Delano Francis on 09-22-2024 Neutrophils/100 WBC (Bld) 63.7 % Normal . [facility] Comment on above: Performed By: #### D HEAS, LC T4, [id number], SEROTON, TEST F + T, T3R, THYGLOB AB, ESTRADIOL, TPO, SHBG, ESTRONE, INSULIN, PROG #### [facility] , #### T4F, TRISTEN, TSH3, A1C WTH eA, FILIBERTO, GLU, T3F #### [facility] [address] [place] [address] [place] Basophils Auto (Bld) [#/Vol] Ordered By: Delano Francis on 09-22-2024 Basophils (Bld) [#/Vol] Automated basophil count 0.0-0.2 [facility] Basophils/100 WBC Auto (Bld) Ordered By: Delano Francis on 09-22-2024 Basophils/100 WBC (Bld) Automated basophil % . [facility] Calcium [Mass/volume] in Ser um or PlasmaOrdered By: Delano Francis on 09-22-2024 Calcium [Mass/Vol] 9.4 mg/dL Normal 8.6-10.3 [facility] Comment on above: Performed By: #### D VENITA, LC T4, [id number], SEROTON, TEST F + T, T3R, THYGLOB AB, ESTRADIOL, TPO, SHBG, ESTRONE, INSULIN, PROG #### [facility] , #### T4F, TRISTEN, TSH3, A1C WTH eA, FILIBERTO, GLU, T3F #### [facility] [address] Calcium [Mass/Vol] Calcium [Mass/volume ] in Serum or Plasma 8.6-10.3 [facility] Carbon dioxide, total [Moles /volume] in Serum or PlasmaOrdered By: Delano Francis on 09-22-2024 CO2 [Moles/Vol] 29.2 mmol/L Normal 21.0-31.0 [facility] Comment on above: Performed By: #### D VENITA, LC T4, [id number], SEROTON, TEST F + T, T3R, THYGLOB AB, ESTRADIOL, TPO, SHBG, ESTRONE, INSULIN, PROG #### [facility] , #### T4F, TRISTEN, TSH3, A1C WTH eA, FILIBERTO, GLU, T3F #### [facility] [address] [place] [address] [place] CO2 [Moles/Vol] Carbon dioxide, tota l [Moles/volume] in Serum or Plasma 21.0-31.0 [facility] Chloride [Moles/volume] in S stevo or PlasmaOrdered By: Delano Francis on 09-22-2024 Chloride [Moles/Vol] 105 mmol/L Normal 98-107 [facility] Comment on above: Performed By: #### D HEAS, LC T4, [id number], SEROTON, TEST F + T, T3R, THYGLOB AB, ESTRADIOL, TPO, SHBG, ESTRONE, INSULIN, PROG #### [facility] , #### T4F, TRISTEN, TSH3, A1C WTH eA, FILIBERTO, GLU, T3F #### [facility] [address] Chloride [Moles/Vol] Chloride [Moles/vol ume] in Serum or Plasma 98-107 [facility] Cholesterol [Mass/volume] in Serum or PlasmaOrdered By: Delano Francis on 09-22-2024 Cholesterol [Mass/Vol] 217 mg/dL High 140-200 [facility] Comment on above: Chol less than 200 m g/dl low riskChol 201-239 mg/dl borderline riskChol 240 mg/dl and greater high risk Result Comment: Chol less than 200 mg/dl low risk Chol 201-239 mg/dl borderline risk Chol 240 mg/dl and greater high risk Performed By: #### D HEAS, LC T4, [id number], SEROTON, TEST F + T, T3R, THYGLOB AB, ESTRADIOL, TPO, SHBG, ESTRONE, INSULIN, PROG #### [facility] , #### T4F, TRISTEN, TSH3, A1C WTH eA, FILIBERTO, GLU, T3F #### [facility] [address] Cholesterol [Mass/Vol] Cholesterol [Mass/volume] in Serum or Plasma High 140-200 [facility] Comment on above: Chol less than 200 m g/dl low riskChol 201-239 mg/dl borderline riskChol 240 mg/dl and greater high risk Cholesterol in HDL [Mass/vol ume] in Serum or PlasmaOrdered By: Delano Francis on 09-22-2024 Cholesterol in HDL [Mass/Vol] Serum or plasma high density lipoprotein (HDL) cholesterol measurement 23- [facility] Comment on above: HDL CHOL ATP-III CLA SSIFICATION Cardiovascular RiskHDL > or equal to 60 mg/dL LOWHDL < 40 mg/dL HIGH Cholesterol in LDL Calc [Mas s/Vol]Ordered By: Delano Francis on 09-22-2024 Cholesterol in LDL [Mass/Vol] 148 mg/dL High 0-100 [facility] Comment on above: LDL ATP III CLASSIFI CATIONLDL less than 100 mg/dL OptimalLDL 100-129 mg/dL Near or above optimalLDL 130-159 mg/dL Borderline highLDL 160-189 mg/dL HighLDL greater than 189 mg/dL Very high Cholesterol in LDL [Mass/Vol] Cholesterol in LDL [Mass/volume] in Serum or Plasma by calculation High 0-100 [facility] Comment on above: LDL ATP III CLASSIFI CATIONLDL less than 100 mg/dL OptimalLDL 100-129 mg/dL Near or above optimalLDL 130-159 mg/dL Borderline highLDL 160-189 mg/dL HighLDL greater than 189 mg/dL Very high Cholesterol in VLDL Calc [Ma ss/Vol]Ordered By: Delano Francis on 09-22-2024 Cholesterol in VLDL [Mass/Vol] 10 mg/dL [facility] Cholesterol in VLDL [Mass/Vol] Cholesterol in VLDL [Mass/volume] in Serum or Plasma by calculation [facility] Creatinine [Mass/volume] in Serum or PlasmaOrdered By: Delano Francis on 09-22-2024 Creatinine [Mass/Vol] 0.73 mg/dL Normal 0.60-1.20 [facility] Comment on above: Performed By: #### D JOSSE NATHAN T4, [id number], SEROTON, TEST F + T, T3R, THYGLOB AB, ESTRADIOL, TPO, SHBG, ESTRONE, INSULIN, PROG #### [facility] , #### T4F, TRISTEN, TSH3, A1C WTH eA, FILIBERTO, GLU, T3F #### [facility] [address] [place] [address] Creatinine [Mass/Vol] Creatinine [Mass/v olume] in Serum or Plasma 0.60-1.20 [facility] Employee Basic Metabolic [place] 09-22-2024 GFR/1.73 sq M.predicted MDRD (S/P/Bld) [Vol rate/Area] mL/min/{1.73_m2} Normal [facility] Comment on above: Performed By: #### D JOSES NATHAN T4, [id number], SEROTON, TEST F + T, T3R, THYGLOB AB, ESTRADIOL, TPO, SHBG, ESTRONE, INSULIN, PROG #### [facility] , #### T4F, TRISTEN, TSH3, A1C WTH eA, FILIBERTO, GLU, T3F #### [facility] [address] Employee Complete Blood Coun ton 09-22-2024 Mean Corpuscular HGB Conc 34.2 g/dL Normal 32.0-35.0 [facility] Comment on above: Performed By: #### D HEAS, LC T4, [id number], SEROTON, TEST F + T, T3R, THYGLOB AB, ESTRADIOL, TPO, SHBG, ESTRONE, INSULIN, PROG #### [facility] , #### T4F, TRISTEN, TSH3, A1C WTH eA, FILIBERTO, GLU, T3F #### [address] NRBC% 0.0 /100{WBC} Normal 0-0.5 [facility] Comment on above: Performed By: #### D HEAS, LC T4, [id number], SEROTON, TEST F + T, T3R, THYGLOB AB, ESTRADIOL, TPO, SHBG, ESTRONE, INSULIN, PROG #### [facility] , #### T4F, TRISTEN, TSH3, A1C WTH eA, FILIBERTO, GLU, T3F #### [address] Employee Lipid Profileon LDL Cholesterol,Calculated 148 mg/dL High 0-100 [facility] Comment on above: Result Comment: LDL ATP III CLASSIFICATION LDL less than 100 mg/dL Optimal LDL 100-129 mg/dL Near or above optimal LDL 130-159 mg/dL Borderline high LDL 160-189 mg/dL High LDL greater than 189 mg/dL Very high Performed By: #### D HEAS, LC T4, [id number], SEROTON, TEST F + T, T3R, THYGLOB AB, ESTRADIOL, TPO, SHBG, ESTRONE, INSULIN, PROG #### [facility] , #### T4F, TRISTEN, TSH3, A1C WTH eA, FILIBERTO, GLU, T3F #### [address] Triglyceride w/Reflex 52 mg/dL Normal 0-149 [facility] Comment on above: Result Comment: TRIG ATP III CLASSIFICATION TRIG less than 150 mg/dL Normal TRIG 150-199 mg/dL Borderline high TRIG 200-500 mg/dL High TRIG greater than 500 mg/dL Very high Standard traceable to the Center for Disease Conrtrol and Prevention (CDC) test method. Performed By: #### D HEAS, LC T4, [id number], SEROTON, TEST F + T, T3R, THYGLOB AB, ESTRADIOL, TPO, SHBG, ESTRONE, INSULIN, PROG #### [facility] , #### T4F, TRISTEN, TSH3, A1C WTH eA, FILIBERTO, GLU, T3F #### [address] VLDL CHOLESTEROL 10 mg/dL Normal [facility] Comment on above: Performed By: #### D HEAS, LC T4, [id number], SEROTON, TEST F + T, T3R, THYGLOB AB, ESTRADIOL, TPO, SHBG, ESTRONE, INSULIN, PROG #### [facility] , #### T4F, TRISTEN, TSH3, A1C WTH eA, FILIBERTO, GLU, T3F #### [address] Employee Thyroid Stim [employer] lonnie 09-22-2024 Employee Thyroid Stim [employer] 2.30 u[iU]/mL Normal 0.45-5.33 [facility] Comment on above: Result Comment: PERF ORMED BY: [place] [address] PATHOLOGIST COSMETIC SALES ADVISOR JOSE GOEL M.D. Performed By: #### D HEAS, LC T4, [id number], SEROTON, TEST F + T, T3R, THYGLOB AB, ESTRADIOL, TPO, SHBG, ESTRONE, INSULIN, PROG #### [facility] , #### T4F, TRISTEN, TSH3, A1C WTH eA, FILIBERTO, GLU, T3F #### [facility] [address] [place] [address] [place] Eosinophils Auto (Bld) [#/Vo l]Ordered By: Delano Francis on 09-22-2024 Eosinophils (Bld) [#/Vol] Automated eosinophil count 0.0-0.45 [facility] Eosinophils/100 WBC Auto (Bl d)Ordered By: Delano Francis on 09-22-2024 Eosinophils/100 WBC (Bld) Automated eosinophil % . [facility] Erythrocyte distribution wid th Auto (RBC) [Ratio]Ordered By: Delano Francis on 09-22-2024 Erythrocyte distribution width (RBC) [Ratio] Erythrocyte distribution width [Ratio] by Automated count 11.9-15.3 [facility] Erythrocyte distribution wid th [Ratio] by Automated countOrdered By: Delano Francis on 09-22-2024 Erythrocyte distribution width (RBC) [Ratio] 13.2 % Normal 11.9-15.3 [facility] Comment on above: Performed By: #### D HEAS, LC T4, [id number], SEROTON, TEST F + T, T3R, THYGLOB AB, ESTRADIOL, TPO, SHBG, ESTRONE, INSULIN, PROG #### [facility] , #### T4F, TRISTEN, TSH3, A1C WTH eA, FILIBERTO, GLU, T3F #### [facility] [address] Erythrocytes [#/volume] in B lood by Automated countOrdered By: Delano Francis on 09-22-2024 RBC (Bld) [#/Vol] 3.91 10*6/uL Normal 3.60-5.00 [facility] Comment on above: Performed By: #### D HEAS, LC T4, [id number], SEROTON, TEST F + T, T3R, THYGLOB AB, ESTRADIOL, TPO, SHBG, ESTRONE, INSULIN, PROG #### [facility] , #### T4F, TRISTEN, TSH3, A1C WTH eA, FILIBERTO, GLU, T3F #### [facility] [address] [place] [address] [place] Glucose [Mass/volume] in Ser um or PlasmaOrdered By: Delano Francis on 09-22-2024 Glucose [Mass/Vol] 83 mg/dL Normal 70-100 [facility] Comment on above: Performed By: #### D VENITA, LC T4, [id number], SEROTON, TEST F + T, T3R, THYGLOB AB, ESTRADIOL, TPO, SHBG, ESTRONE, INSULIN, PROG #### [facility] , #### T4F, TRISTEN, TSH3, A1C WTH eA, FILIBERTO, GLU, T3F #### [facility] [address] [place] [address] [place] Glucose [Mass/Vol] Glucose [Mass/volume ] in Serum or Plasma 70-100 [facility] Hematocrit Auto (Bld) [Volum e fraction]Ordered By: Delano Francis on 09-22-2024 Hematocrit (Bld) [Volume fraction] Hematocrit [Volume Fraction] of Blood by Automated count 34.0-46.4 [facility] Hematocrit [Volume Fraction] of Blood by Automated countOrdered By: Delano Francis on 09-22-2024 Hematocrit (Bld) [Volume fraction] 35.9 % Normal 34.0-46.4 [facility] Comment on above: Performed By: #### D VENITA, LC T4, [id number], SEROTON, TEST F + T, T3R, THYGLOB AB, ESTRADIOL, TPO, SHBG, ESTRONE, INSULIN, PROG #### [facility] , #### T4F, TRISTEN, TSH3, A1C WTH eA, FILIBERTO, GLU, T3F #### [facility] [address] [place] [address] [place] Hemoglobin [Mass/volume] in BloodOrdered By: Delano Francis on 09-22-2024 Hemoglobin (Bld) [Mass/Vol] 12.3 g/dL Normal 11.8-15.4 [facility] Comment on above: Performed By: #### D HEAS, LC T4, [id number], SEROTON, TEST F + T, T3R, THYGLOB AB, ESTRADIOL, TPO, SHBG, ESTRONE, INSULIN, PROG #### [facility] , #### T4F, TRISTEN, TSH3, A1C WTH eA, FILIBERTO, GLU, T3F #### [facility] [address] Hemoglobin (Bld) [Mass/Vol] Hemoglobin [Mass/volume] in Blood 11.8-15.4 [facility] Leukocytes [#/volume] correc calvin for nucleated erythrocytes in Blood by Automated counOrdered By: Delano Francis on 09-22-2024 WBC corrected for nucl RBC Auto (Bld) [#/Vol] 5.1 10*3/uL 3.8-11.6 [facility] WBC corrected for nucl RBC Auto (Bld) [#/Vol] Leukocytes [#/volume] corrected for nucleated erythrocytes in Blood by Automated coun 3.8-11.6 [facility] Leukocytes [#/volume] in Blo od by Automated countOrdered By: Delano Francis on 09-22-2024 WBC (Bld) [#/Vol] 5.1 10*3/uL Normal 3.8-11.6 [facility] Comment on above: Performed By: #### D HEAS, LC T4, [id number], SEROTON, TEST F + T, T3R, THYGLOB AB, ESTRADIOL, TPO, SHBG, ESTRONE, INSULIN, PROG #### [facility] , #### T4F, TRISTEN, TSH3, A1C WTH eA, FILIBERTO, GLU, T3F #### [facility] [address] Lymphocytes Auto (Bld) [#/Vo l]Ordered By: Delano Francis on 09-22-2024 Lymphocytes (Bld) [#/Vol] Lymphocytes [#/volume] in Blood by Automated count 1.00-4.8 [facility] Lymphocytes [#/volume] in Bl ood by Automated countOrdered By: Delano Francis on 09-22-2024 Lymphocytes (Bld) [#/Vol] 1.3 10*3/uL Normal 1.00-4.8 [facility] Comment on above: Performed By: #### D HEAS, LC T4, [id number], SEROTON, TEST F + T, T3R, THYGLOB AB, ESTRADIOL, TPO, SHBG, ESTRONE, INSULIN, PROG #### [facility] , #### T4F, TRISTEN, TSH3, A1C WTH eA, FILIBERTO, GLU, T3F #### [address] Lymphocytes/100 WBC Auto (Bl d)Ordered By: Delano Francis on 09-22-2024 Lymphocytes/100 WBC (Bld) Lymphocytes/100 leukocytes in Blood by Automated count . [facility] Lymphocytes/100 leukocytes i n Blood by Automated countOrdered By: Delano Francis on 09-22-2024 Lymphocytes/100 WBC (Bld) 25.3 % Normal . [facility] Comment on above: Performed By: #### D HEAS, LC T4, [id number], SEROTON, TEST F + T, T3R, THYGLOB AB, ESTRADIOL, TPO, SHBG, ESTRONE, INSULIN, PROG #### [facility] , #### T4F, TRISTEN, TSH3, A1C WTH eA, FILIBERTO, GLU, T3F #### [address] MCH Auto (RBC) [Entitic mass ]Ordered By: Delano Francis on 09-22-2024 MCH (RBC) [Entitic mass] MCH [Entitic mass] by Automated count 24.7-34.3 [facility] MCH [Entitic mass] by Automa calvin countOrdered By: Delano Francis on 09-22-2024 MCH (RBC) [Entitic mass] 31.4 pg Normal 24.7-34.3 [facility] Comment on above: Performed By: #### D HEAS, LC T4, [id number], SEROTON, TEST F + T, T3R, THYGLOB AB, ESTRADIOL, TPO, SHBG, ESTRONE, INSULIN, PROG #### [facility] , #### T4F, TRISTEN, TSH3, A1C WTH eA, FILIBERTO, GLU, T3F #### [facility] [address] MCHC Auto (RBC) [Mass/Vol]Or dered By: Delano Francis on 09-22-2024 MCHC (RBC) [Mass/Vol] 34.2 g/dL 32.0-35.0 [facility] MCHC (RBC) [Mass/Vol] MCHC [Mass/volume] by Automated count 32.0-35.0 [facility] MCV Auto (RBC) [Entitic vol] Ordered By: Delano Francis on 09-22-2024 MCV (RBC) [Entitic vol] MCV [Entitic vol ume] by Automated count 80-100 [facility] MCV [Entitic volume] by Auto mated countOrdered By: Delano Francis on 09-22-2024 MCV (RBC) [Entitic vol] 91.7 fL Normal 80-100 [facility] Comment on above: Performed By: #### D HEAS, LC T4, [id number], SEROTON, TEST F + T, T3R, THYGLOB AB, ESTRADIOL, TPO, SHBG, ESTRONE, INSULIN, PROG #### [facility] , #### T4F, TRISTEN, TSH3, A1C WTH eA, FILIBERTO, GLU, T3F #### [facility] [address] Monocytes Auto (Bld) [#/Vol] Ordered By: Delano Francis on 09-22-2024 Monocytes (Bld) [#/Vol] Automated blood monocyte count 0.0-0.8 [facility] Monocytes/100 WBC Auto (Bld) Ordered By: Delano Francis on 09-22-2024 Monocytes/100 WBC (Bld) Automated monocyte % . [facility] Neutrophils Auto (Bld) [#/Vo l]Ordered By: Delano Francis on 09-22-2024 Neutrophils (Bld) [#/Vol] Neutrophils [#/volume] in Blood by Automated count 1.8-7.7 [facility] Neutrophils [#/volume] in Bl ood by Automated countOrdered By: Delano Francis on 09-22-2024 Neutrophils (Bld) [#/Vol] 3.2 10*3/uL Normal 1.8-7.7 [facility] Comment on above: Performed By: #### D HEAS, LC T4, [id number], SEROTON, TEST F + T, T3R, THYGLOB AB, ESTRADIOL, TPO, SHBG, ESTRONE, INSULIN, PROG #### [facility] , #### T4F, TRISTEN, TSH3, A1C WTH eA, FILIBERTO, GLU, T3F #### [facility] [address] Neutrophils/100 WBC Auto (Bl d)Ordered By: Delano Francis on 09-22-2024 Neutrophils/100 WBC (Bld) Automated neutrophil % . [facility] No Panel InformationOrdered By: Delano Francis on 09-22-2024 Estimated GFR (CKD-EPI) > 60.0 mL/Min [facility] Creatinine Clearance (Chem N/A [facility] Nucleated erythrocytes [Pres ence] in Blood by Automated countOrdered By: Delano Francis on 09-22-2024 Nucleated RBC Auto Ql (Bld) 0.0 /100{WBC} 0-0.5 [facility] Nucleated RBC Auto Ql (Bld) Nucleated erythrocytes [Presence] in Blood by Automated count 0-0.5 [facility] Platelet mean volume Auto (B ld) [Entitic vol]Ordered By: Delano Francis on 09-22-2024 Platelet mean volume (Bld) [Entitic vol] Platelet mean volume [Entitic volume] in Blood by Automated count 6.3-10.7 [facility] Platelet mean volume [Entiti c volume] in Blood by Automated countOrdered By: Delano Francis on 09-22-2024 Platelet mean volume (Bld) [Entitic vol] 7.3 fL Normal 6.3-10.7 [facility] Comment on above: Performed By: #### D HEAS, LC T4, [id number], SEROTON, TEST F + T, T3R, THYGLOB AB, ESTRADIOL, TPO, SHBG, ESTRONE, INSULIN, PROG #### [facility] , #### T4F, TRISTEN, TSH3, A1C WTH eA, FILIBERTO, GLU, T3F #### [facility] [address] Platelets Auto (Bld) [#/Vol] Ordered By: Delano Francis on 09-22-2024 Platelets (Bld) [#/Vol] Platelets [#/vol ume] in Blood by Automated count 150-450 [facility] Platelets [#/volume] in Bloo d by Automated countOrdered By: Delano Francis on 09-22-2024 Platelets (Bld) [#/Vol] 328 10*3/uL Normal 150-450 [facility] Comment on above: Performed By: #### D HEAS, LC T4, [id number], SEROTON, TEST F + T, T3R, THYGLOB AB, ESTRADIOL, TPO, SHBG, ESTRONE, INSULIN, PROG #### [facility] , #### T4F, TRISTEN, TSH3, A1C WTH eA, FILIBERTO, GLU, T3F #### [facility] [address] [place] [address] [place] Potassium [Moles/volume] in Serum or PlasmaOrdered By: Delano Francis on 09-22-2024 Potassium [Moles/Vol] 4.5 mmol/L Normal 3.5-5.1 [facility] Comment on above: Performed By: #### D HEAS, LC T4, [id number], SEROTON, TEST F + T, T3R, THYGLOB AB, ESTRADIOL, TPO, SHBG, ESTRONE, INSULIN, PROG #### [facility] , #### T4F, TRISTEN, TSH3, A1C WTH eA, FILIBERTO, GLU, T3F #### [facility] [address] [place] [address] [place] Potassium [Moles/Vol] Potassium [Moles/v olume] in Serum or Plasma 3.5-5.1 [facility] RBC Auto (Bld) [#/Vol]Ordere d By: Delano Francis on 09-22-2024 RBC (Bld) [#/Vol] Erythrocytes [#/volu me] in Blood by Automated count 3.60-5.00 [facility] Serum or plasma anion gap de terminationOrdered By: Delano Francis on 09-22-2024 Anion gap [Moles/Vol] 8.3 mmol/L Normal 6.0-15.0 [facility] Comment on above: Performed By: #### D VENITA, LC T4, [id number], SEROTON, TEST F + T, T3R, THYGLOB AB, ESTRADIOL, TPO, SHBG, ESTRONE, INSULIN, PROG #### [facility] , #### T4F, TRISTEN, TSH3, A1C WTH eA, FILIBERTO, GLU, T3F #### [facility] [address] Anion gap [Moles/Vol] Serum or plasma an ion gap determination 6.0-15.0 [facility] Serum or plasma high density lipoprotein (HDL) cholesterol measurementOrdered By: Delano Francis on 09-22-2024 Cholesterol in HDL [Mass/Vol] 59 mg/dL Normal 23-92 [facility] Comment on above: HDL CHOL ATP-III CLA SSIFICATION Cardiovascular RiskHDL > or equal to 60 mg/dL LOWHDL < 40 mg/dL HIGH Result Comment: HDL CHOL ATP-III CLASSIFICATION Cardiovascular Risk HDL > or equal to 60 mg/dL LOW HDL < 40 mg/dL HIGH Performed By: #### D VENITA, LC T4, [id number], SEROTON, TEST F + T, T3R, THYGLOB AB, ESTRADIOL, TPO, SHBG, ESTRONE, INSULIN, PROG #### [facility] , #### T4F, TRISTEN, TSH3, A1C WTH eA, FILIBERTO, GLU, T3F #### [facility] [address] Serum or plasma total choles terol/high density lipoprotein (HDL) cholesterol mass ratOrdered By: Delano Francis on 09-22-2024 Cholesterol.total/Alivia sterol in HDL [Mass ratio] 3.7 {ratio} Normal <5.0 [facility] Comment on above: Performed By: #### D HEAS, LC T4, [id number], SEROTON, TEST F + T, T3R, THYGLOB AB, ESTRADIOL, TPO, SHBG, ESTRONE, INSULIN, PROG #### [facility] , #### T4F, TRISTEN, TSH3, A1C WTH eA, FILIBERTO, GLU, T3F #### [facility] [address] Cholesterol.total/Alivia sterol in HDL [Mass ratio] Serum or plasma total cholesterol/high density lipoprotein (HDL) cholesterol mass rat <5.0 [facility] Sodium [Moles/volume] in Ser um or PlasmaOrdered By: Delano Francis on 09-22-2024 Sodium [Moles/Vol] 138 mmol/L Normal 136-145 [facility] Comment on above: Performed By: #### D HEAS, LC T4, [id number], SEROTON, TEST F + T, T3R, THYGLOB AB, ESTRADIOL, TPO, SHBG, ESTRONE, INSULIN, PROG #### [facility] , #### T4F, TRISTEN, TSH3, A1C WTH eA, FILIBERTO, GLU, T3F #### [facility] [address] Sodium [Moles/Vol] Sodium [Moles/volume ] in Serum or Plasma 136-145 [facility] Thyrotropin [Units/volume] i n Serum or PlasmaOrdered By: Delano Francis on 09-22-2024 TSH Qn 2.30 m[IU]/L 0.45-5.33 [facility] TSH Qn Thyrotropin [Units/volume] in Serum or Plasma 0.45-5.33 [facility] Triglyceride [Mass/volume] i n Serum or PlasmaOrdered By: Delano Francis on 09-22-2024 Triglyceride [Mass/Vol] 52 mg/dL 0-149 [facility] Comment on above: TRIG ATP III CLASSIF ICATIONTRIG less than 150 mg/dL NormalTRIG 150-199 mg/dL Borderline highTRIG 200-500 mg/dL High TRIG greater than 500 mg/dL Very highStandard traceable to the Center for Disease Conrtrol and Prevention (CDC) test method. Triglyceride [Mass/Vol] Triglyceride [Mass/volume] in Serum or Plasma 0-149 [facility] Comment on above: TRIG ATP III CLASSIF ICATIONTRIG less than 150 mg/dL NormalTRIG 150-199 mg/dL Borderline highTRIG 200-500 mg/dL High TRIG greater than 500 mg/dL Very highStandard traceable to the Center for Disease Conrtrol and Prevention (CDC) test method. Urea nitrogen [Mass/volume] in Serum or PlasmaOrdered By: Delano Francis on 09-22-2024 Urea nitrogen [Mass/Vol] 9 mg/dL Normal 06-23 [facility] Comment on above: Performed By: #### D VENITA, JOSSE T4, [id number], SEROTON, TEST F + T, T3R, THYGLOB AB, ESTRADIOL, TPO, SHBG, ESTRONE, INSULIN, PROG #### [facility] , #### T4F, TRISTEN, TSH3, A1C WTH eA, FILIBERTO, GLU, T3F #### [facility] [address] Urea nitrogen [Mass/Vol] Urea nitrogen [Mass/volume] in Serum or Plasma 06-23 [facility] WBC Auto (Bld) [#/Vol]Ordere d By: Delano Francis on 09-22-2024 WBC (Bld) [#/Vol] Leukocytes [#/volume ] in Blood by Automated count 3.8-11.6 [facility] IGP,APTIMA HPV,AGE GDLNon AGE GDLN ACOG TESTING Note . [facility] Comment on above: TESTS RESULT FLAG UN ITS REF RANGE LAB Clinician Provided Cytology Information Source.............Cervix;Endocervix No. of containers..01 ThinPrep Vial Age Algo ACOG Lara... 30- FLAG LEGEND: L-Low Normal,H-High Normal,LL-Alert Low,HH-Alert High <-Panic Low,>-Panic High,A-Abnormal,AA-Critical Abnormal Performed at: 01 =[address] [id number] Ilana Heath MD, HPV APTIMA Negative Negative [facility] Comment on above: This nucleic acid am plification test detects fourteen high- risk HPV types (16,18,31,33,35,39,45,51,52,56,58,59,66,68) without differentiation. Performed at: =[address] [id number] Residential Collections: Ilana Heath MD, Phone: [phone] Performed at: [address] [id number] Residential Collections: Ilana Heath MD, Phone: [phone] IGP, APTIMA HPV, RFX 16/18,45 Note . [facility] Comment on above: TESTS RESULT FLAG UN ITS REF RANGE LAB DIAGNOSIS: 02 NEGATIVE FOR INTRAEPITHELIAL LESION OR MALIGNANCY. Specimen adequacy: 02 Satisfactory for evaluation. No endocervical component is identified. Performed by: 02 Chema Camargo, Metal Polisher And Buffer Apprentice ([facility]) . 02 Note: Note 02 The [...] High,A-Abnormal,AA-Critical Abnormal Performed at: 02 [facility] [address] [id number] Ilana Heath MD, BRUSH-SPATULA [facility]IX [facility]25 Dihydroxy Vit D Calcitr olon 01-07-2024 1,25 Dihydroxy Vit D Calcitrol 56.6 pg/mL Normal 24.8-81.5 [facility] Comment on above: Result Comment: Perf ormed at: BN - [facility] [address] [id number] Residential Collections: Quinton Wolf MD, Phone: [phone] Performed By: #### D JOSSE NATHAN T4, [id number], SEROTON, TEST F + T, T3R, THYGLOB AB, ESTRADIOL, TPO, SHBG, ESTRONE, INSULIN, PROG #### [facility] , #### T4F, TRISTEN, TSH3, A1C WTH eA, FILIBERTO, GLU, T3F #### [address] A1C with Estimated Average G luon 01-07-2024 Glucose [Mass/Vol] 105 mg/dL Normal [facility] Comment on above: Result Comment: PERF ORMED BY: [place] [address] PATHOLOGIST COSMETIC SALES ADVISOR JOSE GOEL M.D. Performed By: #### D VENITA, LC T4, [id number], SEROTON, TEST F + T, T3R, THYGLOB AB, ESTRADIOL, TPO, SHBG, ESTRONE, INSULIN, PROG #### [facility] , #### T4F, TRISTEN, TSH3, A1C WTH eA, FILIBERTO, GLU, T3F #### [address] Antithyroglobulin Abon 01-07 Antithyroglobulin Ab <1.0 Normal 0.0-0.9 [facility] Comment on above: Result Comment: Thyr oglobulin Antibody measured by Vendor Registry Methodology Performed at: - [facility] [id number] Residential Collections: Baudilio Leyva PhD, Phone: [phone] Performed By: #### Adria NATHAN, LC T4, [id number], SEROTON, TEST F + T, T3R, THYGLOB AB, ESTRADIOL, TPO, SHBG, ESTRONE, INSULIN, PROG #### [facility] , #### T4F, TRISTEN, TSH3, A1C WTH eA, FILIBERTO, GLU, T3F #### [address] Cortisolon 01-07-2024 Cortisol 6.8 ug/dL Normal [facility] Comment on above: Result Comment: Refe rence range: AM 6 - 24 ug/dl PM <10 ug/dl [facility] white sourer and method: VaddioEL DXI, POLYCLONAL ANTIBODY CORTISOL ASSAY. PERFORMED BY: [place] [address] PATHOLOGIST COSMETIC SALES ADVISOR JOSE GOEL M.D. Performed By: #### D HEAS, LC T4, [id number], SEROTON, TEST F + T, T3R, THYGLOB AB, ESTRADIOL, TPO, SHBG, ESTRONE, INSULIN, PROG #### [facility] , #### T4F, TRISTEN, TSH3, A1C WTH eA, FILIBERTO, GLU, T3F #### [facility] [address] [place] [address] [facility] Dehydroepiandrosterone Sulfa teOrdered By: Deisy Villar on 01-07-2024 Dehydroepiandrosterone Sulfate 174.0 ug/dL Normal 84.8-378.0 [facility] Comment on above: Performed By: #### D VENITA, LC T4, [id number], SEROTON, TEST F + T, T3R, THYGLOB AB, ESTRADIOL, TPO, SHBG, ESTRONE, INSULIN, PROG #### [facility] , #### T4F, TRISTEN, TSH3, A1C WTH eA, FILIBERTO, GLU, T3F #### [facility] [address] [place] [address] [facility] Estradiolon 01-07-2024 Estradiol 300.0 pg/mL Normal . [facility] Comment on above: Result Comment: Adul t Female Range Follicular phase 12.5 - 166.0 Ovulation phase 85.8 - 498.0 Luteal phase 43.8 - 211.0 Postmenopausal <6.0 - 54.7 1st trimester 215.0 - >4300.0 Elías ECLIA methodology Performed By: #### D VENITA, LC T4, [id number], SEROTON, TEST F + T, T3R, THYGLOB AB, ESTRADIOL, TPO, SHBG, ESTRONE, INSULIN, PROG #### [facility] , #### T4F, TRISTEN, TSH3, A1C WTH eA, FILIBERTO, GLU, T3F #### [facility] [address] [place] [address] [facility] Estrone, Serumon 01-07-2024 Estrone, Serum 46 pg/mL Normal 27-231 [facility] Comment on above: Result Comment: Rang e Adult (Premenopausal) 27 - 231 Menstrual Cycle (1-10 days) 19 - 149 Menstrual Cycle (11-20 days) 32 - 176 Menstrual Cycle (21-30 days) 37 - 200 Performed at: [address] [id number] Residential Collections: Quinton Wolf MD, Phone: [phone] Performed By: #### D HEAS, LC T4, [id number], SEROTON, TEST F + T, T3R, THYGLOB AB, ESTRADIOL, TPO, SHBG, ESTRONE, INSULIN, PROG #### [facility] , #### T4F, TRISTEN, TSH3, A1C WTH eA, FILIBERTO, GLU, T3F #### [facility] [address] [place] [address] [place] Ferritin [Mass/volume] in Se rum or PlasmaOrdered By: Deisy Villar on 01-07-2024 Ferritin [Mass/Vol] 44.8 ng/mL Normal 11.0-306.8 [facility] Comment on above: Performed By: #### D HEAS, LC T4, [id number], SEROTON, TEST F + T, T3R, THYGLOB AB, ESTRADIOL, TPO, SHBG, ESTRONE, INSULIN, PROG #### [facility] , #### T4F, TRISTEN, TSH3, A1C WTH eA, FILIBERTO, GLU, T3F #### [facility] [address] [place] [address] [facility] Free testosterone measuremen t by LC-MS/MSOrdered By: Deisy Villar on 01-07-2024 Testosterone Free [Mass/Vol] 0.3 pg/mL 0.0-4.2 [facility] Comment on above: Performed at: [address] [id number] Director: Baudilio Lyeva PhD, Phone: [phone] at: [address] [id number] Director: Quinton Wolf MD, Phone: [phone] Glucose [Mass/volume] in Ser um or PlasmaOrdered By: Deisy Villar on 01-07-2024 Glucose [Mass/Vol] 84 mg/dL Normal 70-100 [facility] Comment on above: ADA recommended refe rence rangeRandom Glucose Reference Range is dependent on time and content of last meal. Glucose of more than 200 mg/dL in a nonstressed, ambulatory subject supports the diagnosis of Diabetes Mellitus. Result Comment: [place] om Glucose Reference Range is dependent on time and content of last meal. Glucose of more than 200 mg/dL in a nonstressed, ambulatory subject supports the diagnosis of Diabetes Mellitus. ADA recommended reference range Performed By: #### D DANIELLEAS, LC T4, [id number], SEROTON, TEST F + T, T3R, THYGLOB AB, ESTRADIOL, TPO, SHBG, ESTRONE, INSULIN, PROG #### [facility] , #### T4F, TRISTEN, TSH3, A1C WTH eA, FILIBERTO, GLU, T3F #### [facility] [address] Glucose mean value [Mass/vol ume] in Blood Estimated from glycated hemoglobinOrdered By: Deisy Villar on 01-07-2024 Average glucose Estimated from glycated hemoglobin (Bld) [Mass/Vol] 105 mg/dL [facility] Hemoglobin A1c percentageOrd ered By: Deisy Villar on 01-07-2024 HbA1c (Bld) [Mass fraction] 5.3 % Normal 4.3-5.6 [facility] Comment on above: Increased risk for d iabetes: 5.7 - 6.4diabetes: >6.4glycemic control for adults with diabetes: <7.0 Result Comment: Incr eased risk for diabetes: 5.7 - 6.4 diabetes: >6.4 glycemic control for adults with diabetes: <7.0 Performed By: #### D HEAS, LC T4, [id number], SEROTON, TEST F + T, T3R, THYGLOB AB, ESTRADIOL, TPO, SHBG, ESTRONE, INSULIN, PROG #### [facility] , #### T4F, TRISTEN, TSH3, A1C WTH eA, FILIBERTO, GLU, T3F #### [facility] [address] [place] [address] [place] Insulinon 01-07-2024 Insulin 4.5 u[iU]/mL Normal 2.6-24.[address] [facility] Comment on above: Result Comment: Perf ormed at: [facility] [address] [id number] Residential Collections: Baudilio Leyva PhD, Phone: [phone] Performed By: #### D HEAS, LC T4, [id number], SEROTON, TEST F + T, T3R, THYGLOB AB, ESTRADIOL, TPO, SHBG, ESTRONE, INSULIN, PROG #### [facility] , #### T4F, TRISTEN, TSH3, A1C WTH eA, FILIBERTO, GLU, T3F #### [address] [facility] Thyroxine (T4)on T4 [Mass/Vol] 8.2 ug/dL Normal 4.5-12.0 [facility] Comment on above: Performed By: #### D HEAS, LC T4, [id number], SEROTON, TEST F + T, T3R, THYGLOB AB, ESTRADIOL, TPO, SHBG, ESTRONE, INSULIN, PROG #### [facility] , #### T4F, TRISTEN, TSH3, A1C WTH eA, FILIBERTO, GLU, T3F #### [address] No Panel InformationOrdered By: Deisy Villar on 01-07-2024 Free Thyroxine (T4) Direct 8.2 ug/dL 4.5-12.0 [facility] Reverse Triiodothyronine (T3) 18.9 ng/dL 9.2-24.1 [facility] Comment on above: This test was devsairao huey and its performance characteristicsdetermined by [employer]. It has not been cleared orapproved by the Food and Drug Administration.Performed at: [address] [id number] Director: Quinton Wolf MD, Phone: [phone] Sex Hormone Binding Globulin 95.4 nmol/L 24.6-122.0 [facility] Comment on above: Performed at: CB - [facility] [id number] [place], [place] [id number] Director: Baudilio Leyva PhD, Phone: [phone] Plasma serotonin measurement (mass/volume)Ordered By: Deisy Villar on 01-07-2024 Serotonin (P) [Mass/Vol] 71 ng/mL [facility] Comment on above: This test was develo ped and its performance characteristicsdetermined by [facility]. It has not been cleared orapproved by the Food and Drug Administration.Performed at: [address] [id number] Director: Quinton Wolf MD, Phone: [phone] Progesteroneon 01-07-2024 Progesterone 0.2 ng/mL Normal . [facility] Comment on above: Result Comment: Foll icular phase 0.1 - 0.9 Luteal phase 1.8 - 23.9 Ovulation phase 0.1 - 12.0 First trimester 11.0 - 44.3 Second trimester 25.4 - 83.3 Third trimester 58.7 - 214.0 Postmenopausal 0.0 - 0.1 Performed By: #### D HEAS, LC T4, [id number], SEROTON, TEST F + T, T3R, THYGLOB AB, ESTRADIOL, TPO, SHBG, ESTRONE, INSULIN, PROG #### [facility] , #### T4F, TRISTEN, TSH3, A1C WTH eA, FILIBERTO, GLU, T3F #### [facility] [address] Random cortisol measurementO rdered By: Deisy Villar on 01-07-2024 Cortisol [Mass/Vol] 6.8 ug/dL [facility] Comment on above: [facility] white sourer and method:HELGA UNICEL DXI, POLYCLONAL ANTIBODY CORTISOL ASSAY.Reference range: AM 6 - 24 ug/dl PM <10 ug/dl Serotonin, Serumon 4 Serotonin, Serum 71 ng/mL Normal [facility] Comment on above: Result Comment: This test was developed and its performance characteristics determined by [facility]. It has not been cleared or approved by the Food and Drug Administration. Performed at: [facility] [id number] Residential Collections: Quinton Wolf MD, Phone: [phone] PERFORMED BY: [facility] [address] [place] [address] PATHOLOGIST COSMETIC SALES ADVISOR JOSE GOEL M.D. Performed By: #### D HEAS, LC T4, [id number], SEROTON, TEST F + T, T3R, THYGLOB AB, ESTRADIOL, TPO, SHBG, ESTRONE, INSULIN, PROG #### [facility] , #### T4F, TRISTEN, TSH3, A1C WTH eA, FILIBERTO, GLU, T3F #### [facility] [address] Serum estrone measurementOrd ered By: Deisy Villar on 01-07-2024 E1 [Mass/Vol] 46 pg/mL 27-231 [facility] Comment on above: Range Adult (Premeno pausal) 27 - 231 Menstrual Cycle (1-10 days) 19 - 149 Menstrual Cycle (11-20 days) 32 - 176 Menstrual Cycle (21-30 days) 37 - 200Performed at: real5D - [facility] [address] [id number] Director: Quinton Wolf MD, Phone: [phone] Serum or plasma calcitriol m easurement (mass/volume)Ordered By: Deisy Villar on 01-07-2024 1,25-dihydroxyvitamin D3 [Mass/Vol] 56.6 pg/mL 24.8-81.5 [facility] Comment on above: Performed at: BN - [facility] [address] [id number] Director: Quinton Wolf MD, Phone: [phone] Serum or plasma estradiol (E 2) measurement (mass/volume)Ordered By: Deisy Villar on 01-07-2024 E2 [Mass/Vol] 300.0 pg/mL . [facility] Comment on above: Adult Female Range F ollicular phase 12.5 - 166.0 Ovulation phase 85.8 - 498.0 Luteal phase 43.8 - 211.0 Postmenopausal <6.0 - 54.7 1st trimester 215.0 - >4300.0Roche ECLIA methodology Serum or plasma insulin kevin urement (units/volume)Ordered By: Deisy Villar on 01-07-2024 Insulin Qn 4.5 u[iU]/mL 2.6-24.9 [facility] Comment on above: Performed at: [facility] [address] [id number] Director: Baudilio Leyva PhD, Phone: [phone] Serum or plasma progesterone measurement (mass/volume)Ordered By: Deisy Villar on 01-07-2024 Progesterone [Mass/Vol] 0.2 ng/mL . [facility] Comment on above: Follicular phase 0.1 - 0.9 Luteal phase 1.8 - 23.9 Ovulation phase 0.1 - 12.0 First trimester 11.0 - 44.3 Second trimester 25.4 - 83.3 Third trimester 58.7 - 214.0 Postmenopausal 0.0 - 0.1 Serum or plasma thyroglobuli n antibody assay (units/volume)Ordered By: Deisy Villar on 01-07-2024 Thyroglobulin Ab Qn [IU]/mL 0.0-0.9 [facility] Comment on above: Thyroglobulin Antibo dy measured by Vendor RegistryMethodologyPerformed at: [facility] [address] [place], [place] [id number] Director: Baudilio Leyva PhD, Phone: [phone] Serum or plasma thyroperoxid ase antibody assay (units/volume)Ordered By: Deisy Villar on 01-07-2024 TPO Ab Qn [IU]/mL 0-34 [facility] Comment on above: Performed at: [facility] [id number] [place] [id number] Director: Baudilio Leyva PhD, Phone: [phone] Sex Hormone Binding Globulin on 01-07-2024 Sex Hormone Binding Globulin 95.4 Normal 24.6-122.0 [facility] Comment on above: Result Comment: Perf ormed at: [facility] [address] [id number] Residential Collections: Baudilio Leyva PhD, Phone: [phone] Performed By: #### D VENITA, LC T4, [id number], SEROTON, TEST F + T, T3R, THYGLOB AB, ESTRADIOL, TPO, SHBG, ESTRONE, INSULIN, PROG #### [facility] , #### T4F, TRISTEN, TSH3, A1C WTH eA, FILIBERTO, GLU, T3F #### [facility] [address] Testosterone Free and TotalO rdered By: Deisy Villar on 01-07-2024 Testosterone [Mass/Vol] 16 ng/dL Normal 8-60 [facility] Comment on above: Performed By: #### D VENITA, LC T4, [id number], SEROTON, TEST F + T, T3R, THYGLOB AB, ESTRADIOL, TPO, SHBG, ESTRONE, INSULIN, PROG #### [facility] , #### T4F, TRISTEN, TSH3, A1C WTH eA, FILIBERTO, GLU, T3F #### [place] [address] [place] Testosterone Free and Totalo n 01-07-2024 Testosterone,Free 0.3 pg/mL Normal 0.0-4.2 [facility] Comment on above: Result Comment: Perf ormed at: [facility] [id number] Residential Collections: Baudilio Leyva PhD, Phone: [phone] Performed at: [facility] [id number] Residential Collections: Quinton Wolf MD, Phone: [phone] Performed By: #### D VENITA, LC T4, [id number], SEROTON, TEST F + T, T3R, THYGLOB AB, ESTRADIOL, TPO, SHBG, ESTRONE, INSULIN, PROG #### [facility] , #### T4F, TRISTEN, TSH3, A1C WTH eA, FILIBERTO, GLU, T3F #### [address] Thyroid Peroxidase Antibodie son 01-07-2024 Thyroid Peroxidase Antibodies <9 Normal 0-34 [facility] Comment on above: Result Comment: Perf ormed at: - [facility] [address] [id number] Residential Collections: Baudilio Leyva PhD, Phone: [phone] Performed By: #### D HEAS, LC T4, [id number], SEROTON, TEST F + T, T3R, THYGLOB AB, ESTRADIOL, TPO, SHBG, ESTRONE, INSULIN, PROG #### [facility] , #### T4F, TRISTEN, TSH3, A1C WTH eA, FILIBERTO, GLU, T3F #### [address] Thyrotropin [Units/volume] i n Serum or PlasmaOrdered By: Deisy Villar on 01-07-2024 TSH Qn 1.80 m[IU]/L Normal 0.45-5.33 [facility] Comment on above: Performed By: #### D HEAS, LC T4, [id number], SEROTON, TEST F + T, T3R, THYGLOB AB, ESTRADIOL, TPO, SHBG, ESTRONE, INSULIN, PROG #### [facility] , #### T4F, TRISTEN, TSH3, A1C WTH eA, FILIBERTO, GLU, T3F #### [facility] [address] [place] [address] Thyroxine (T4) free [Mass/vo lume] in Serum or PlasmaOrdered By: Deisy Villar on 01-07-2024 Free T4 [Mass/Vol] 0.88 ng/dL Normal 0.61-1.12 [facility] Comment on above: Performed By: #### D HEAS, LC T4, [id number], SEROTON, TEST F + T, T3R, THYGLOB AB, ESTRADIOL, TPO, SHBG, ESTRONE, INSULIN, PROG #### [facility] , #### T4F, TRISTEN, TSH3, A1C WTH eA, FILIBERTO, GLU, T3F #### [facility] [address] [place] [address] Triiodothyronine (T3) Freeon 01-07-2024 Triiodothyronine (T3) Free 3.90 pg/mL Normal 2.50-3.90 [facility] Comment on above: Result Comment: PERF ORMED BY: [address] [place] [address] PATHOLOGIST COSMETIC SALES ADVISOR JOSE GOEL M.D. Performed By: #### D VENITA, LC T4, [id number], SEROTON, TEST F + T, T3R, THYGLOB AB, ESTRADIOL, TPO, SHBG, ESTRONE, INSULIN, PROG #### [facility] , #### T4F, TRISTEN, TSH3, A1C WTH eA, FILIBERTO, GLU, T3F #### [facility] [address] [place] [address] Triiodothyronine (T3) Free [ Mass/volume] in Serum or PlasmaOrdered By: Deisy Villar on 01-07-2024 Free T3 [Mass/Vol] 3.90 pg/mL 2.50-3.90 [facility] Triiodothyronine (T3) Revers lonnie 01-07-2024 Triiodothyronine (T3) Reverse 18.9 ng/dL Normal 9.2-24.1 [facility] Comment on above: Result Comment: This test was developed and its performance characteristics determined by [facility]. It has not been cleared or approved by the Food and Drug Administration. Performed at: [address] [id number] Residential Collections: Quinton Wolf MD, Phone: [phone] Performed By: #### D VENITA, LC T4, [id number], SEROTON, TEST F + T, T3R, THYGLOB AB, ESTRADIOL, TPO, SHBG, ESTRONE, INSULIN, PROG #### [facility] , #### T4F, TRISTEN, TSH3, A1C WTH eA, FILIBERTO, GLU, T3F #### [facility] [address] Alanine aminotransferase [En zymatic activity/volume] in Serum or PlasmaOrdered By: Delano Francis on 09-17-2023 ALT [Catalytic activity/Vol] 20 U/L 7-52 [facility] Albumin [Mass/volume] in Ser um or Plasma by Bromocresol green (BCG) dye binding methoOrdered By: Delano Francis on 09-17-2023 Albumin BCG dye [Mass/Vol] 4.3 g/dL 3.5-5.7 [facility] Alkaline phosphatase [Enzyma tic activity/volume] in Serum or PlasmaOrdered By: Delano Francis on 09-17-2023 ALP [Catalytic activity/Vol] 62 U/L 34-104 [facility] Aspartate aminotransferase [ Enzymatic activity/volume] in Serum or PlasmaOrdered By: Delano Francis on 09-17-2023 AST [Catalytic activity/Vol] 22 U/L 13-39 [facility] Basophils Auto (Bld) [#/Vol] Ordered By: Delano Francis on 09-17-2023 Basophils (Bld) [#/Vol] 0.0 10*3/uL 0.0-0.2 [facility] Basophils/100 WBC Auto (Bld) Ordered By: Delano Francis on 09-17-2023 Basophils/100 WBC (Bld) 0.4 % . [facility] Bilirubin.total [Mass/volume ] in Serum or PlasmaOrdered By: Delano Francis on 09-17-2023 Bilirubin [Mass/Vol] 0.7 mg/dL 0.3-1.0 [facility] Calcium [Mass/volume] in Ser um or PlasmaOrdered By: Delano Francis on 09-17-2023 Calcium [Mass/Vol] 9.4 mg/dL 8.6-10.3 [facility] Carbon dioxide, total [Moles /volume] in Serum or PlasmaOrdered By: Delano Francis on 09-17-2023 CO2 [Moles/Vol] 26.2 mmol/L 21.0-31.0 [facility] Chloride [Moles/volume] in S stevo or PlasmaOrdered By: Delano Francis on 09-17-2023 Chloride [Moles/Vol] 102 mmol/L 98-107 [facility] Cholesterol [Mass/volume] in Serum or PlasmaOrdered By: Delano Francis on 09-17-2023 Cholesterol [Mass/Vol] 214 mg/dL 140-200 [facility] Comment on above: Chol less than 200 m g/dl low riskChol 201-239 mg/dl borderline riskChol 240 mg/dl and greater high risk Cholesterol in LDL Calc [Mas s/Vol]Ordered By: Delano Francis on 09-17-2023 Cholesterol in LDL [Mass/Vol] 161 mg/dL 0-100 [facility] Comment on above: LDL ATP III CLASSIFI CATIONLDL less than 100 mg/dL OptimalLDL 100-129 mg/dL Near or above optimalLDL 130-159 mg/dL Borderline highLDL 160-189 mg/dL HighLDL greater than 189 mg/dL Very high Cholesterol in VLDL Calc [Ma ss/Vol]Ordered By: Delano Francis on 09-17-2023 Cholesterol in VLDL [Mass/Vol] 9 mg/dL [facility] Creatinine [Mass/volume] in Serum or PlasmaOrdered By: Delano Francis on 09-17-2023 Creatinine [Mass/Vol] 0.79 mg/dL 0.60-1.20 [facility] Eosinophils Auto (Bld) [#/Vo l]Ordered By: Delano Francis on 09-17-2023 Eosinophils (Bld) [#/Vol] 0.1 10*3/uL 0.0-0.45 [facility] Eosinophils/100 WBC Auto (Bl d)Ordered By: Delano Francis on 09-17-2023 Eosinophils/100 WBC (Bld) 0.9 % . [facility] Erythrocyte distribution wid th Auto (RBC) [Ratio]Ordered By: Delano Francis on 09-17-2023 Erythrocyte distribution width (RBC) [Ratio] 12.4 % 11.9-15.3 [facility] Globulin Calc (S) [Mass/Vol] Ordered By: Delano Francis on 09-17-2023 Globulin (S) [Mass/Vol] 2.5 g/dL [facility] Glucose [Mass/volume] in Ser um or PlasmaOrdered By: Delano Francis on 09-17-2023 Glucose [Mass/Vol] 75 mg/dL 70-100 [facility] Hematocrit Auto (Bld) [Volum e fraction]Ordered By: Delano Francis on 09-17-2023 Hematocrit (Bld) [Volume fraction] 34.2 % 34.0-46.4 [facility] Hemoglobin [Mass/volume] in BloodOrdered By: Delano Francis on 09-17-2023 Hemoglobin (Bld) [Mass/Vol] 11.8 g/dL 11.8-15.4 [facility] Leukocytes [#/volume] correc calvin for nucleated erythrocytes in Blood by Automated counOrdered By: Delano Francis on 09-17-2023 WBC corrected for nucl RBC Auto (Bld) [#/Vol] 5.9 10*3/uL 3.8-11.6 [facility] Lymphocytes Auto (Bld) [#/Vo l]Ordered By: Delano Francis on 09-17-2023 Lymphocytes (Bld) [#/Vol] 1.8 10*3/uL 1.00-4.8 [facility] Lymphocytes/100 WBC Auto (Bl d)Ordered By: Delano Francis on 09-17-2023 Lymphocytes/100 WBC (Bld) 30.5 % . [facility] MCH Auto (RBC) [Entitic mass ]Ordered By: Delano Francis on 09-17-2023 MCH (RBC) [Entitic mass] 31.8 pg 24.7-34.3 [facility] MCHC Auto (RBC) [Mass/Vol]Or dered By: Delano Francis on 09-17-2023 MCHC (RBC) [Mass/Vol] 34.4 g/dL 32.0-35.0 [facility] MCV Auto (RBC) [Entitic vol] Ordered By: Delano Francis on 09-17-2023 MCV (RBC) [Entitic vol] 92.5 fL 80-100 [facility] Monocytes Auto (Bld) [#/Vol] Ordered By: Delano Francis on 09-17-2023 Monocytes (Bld) [#/Vol] 0.5 10*3/uL 0.0-0.8 [facility] Monocytes/100 WBC Auto (Bld) Ordered By: Delano Francis on 09-17-2023 Monocytes/100 WBC (Bld) 9.2 % . [facility] Neutrophils Auto (Bld) [#/Vo l]Ordered By: Delano Francis on 09-17-2023 Neutrophils (Bld) [#/Vol] 3.5 10*3/uL 1.8-7.7 [facility] Neutrophils/100 WBC Auto (Bl d)Ordered By: Delano Francis on 09-17-2023 Neutrophils/100 WBC (Bld) 59.0 % . [facility] No Panel InformationOrdered By: Delano Francis on 09-17-2023 Estimated GFR (CKD-EPI) > 60.0 mL/Min [facility] Pharmacy Creatinine Clearance (Chem N/A [facility] Nucleated erythrocytes [Pres ence] in Blood by Automated countOrdered By: Delano Francis on 09-17-2023 Nucleated RBC Auto Ql (Bld) 0.2 /100{WBC} 0-0.5 [facility] Platelet mean volume Auto (B ld) [Entitic vol]Ordered By: Delano Francis on 09-17-2023 Platelet mean volume (Bld) [Entitic vol] 8.1 fL 6.3-10.7 [facility] Platelets Auto (Bld) [#/Vol] Ordered By: Delano Francis on 09-17-2023 Platelets (Bld) [#/Vol] 250 10*3/uL 150-450 [facility] Potassium [Moles/volume] in Serum or PlasmaOrdered By: Delano Francis on 09-17-2023 Potassium [Moles/Vol] 4.0 mmol/L 3.5-5.1 [facility] Protein [Mass/volume] in Ser um or PlasmaOrdered By: Delano Francis on 09-17-2023 Protein [Mass/Vol] 6.8 g/dL 6.4-8.9 [facility] RBC Auto (Bld) [#/Vol]Ordere d By: Delano Francis on 09-17-2023 RBC (Bld) [#/Vol] 3.70 10*6/uL 3.60-5.00 [facility] Serum or plasma albumin/glob ulin mass ratioOrdered By: Delano Francis on 09-17-2023 Albumin/Globulin [Mass ratio] 1.7 {ratio} [facility] Serum or plasma anion gap de terminationOrdered By: Delano Francis on 09-17-2023 Anion gap [Moles/Vol] 10.8 mmol/L 6.0-15.0 [facility] Serum or plasma high density lipoprotein (HDL) cholesterol measurementOrdered By: Delano Francis on 09-17-2023 Cholesterol in HDL [Mass/Vol] 43 mg/dL 23- [facility] Comment on above: HDL CHOL ATP-III CLA SSIFICATION Cardiovascular RiskHDL > or equal to 60 mg/dL LOWHDL < 40 mg/dL HIGH Serum or plasma total choles terol/high density lipoprotein (HDL) cholesterol mass ratOrdered By: Delano Francis on 09-17-2023 Cholesterol.total/Alivia sterol in HDL [Mass ratio] 5.0 {ratio} <5.0 [facility] Sodium [Moles/volume] in Ser um or PlasmaOrdered By: Delano Francis on 09-17-2023 Sodium [Moles/Vol] 135 mmol/L 136-145 [facility] Thyrotropin [Units/volume] i n Serum or PlasmaOrdered By: Delano Francis on 09-17-2023 TSH Qn 1.04 m[IU]/L 0.45-5.33 [facility] Triglyceride [Mass/volume] i n Serum or PlasmaOrdered By: Delano Francis on 09-17-2023 Triglyceride [Mass/Vol] 48 mg/dL 0-149 [facility] Comment on above: TRIG ATP III CLASSIF ICATIONTRIG less than 150 mg/dL NormalTRIG 150-199 mg/dL Borderline highTRIG 200-500 mg/dL High TRIG greater than 500 mg/dL Very highStandard traceable to the Center for Disease Conrtrol and Prevention (CDC) test method. Urea nitrogen [Mass/volume] in Serum or PlasmaOrdered By: Delano Francis on 09-17-2023 Urea nitrogen [Mass/Vol] 7 mg/dL 7- [facility] WBC Auto (Bld) [#/Vol]Ordere d By: Delano Francis on 09-17-2023 WBC (Bld) [#/Vol] 5.9 10*3/uL 3.8-11.6 [facility] Mononucleosis Test, [place] 1 Heterophile Ab LA Ql (S) Negative [employer] Other Quick Strepon 09-26-2022 S. pyogenes Org specific cx Ql (Throat) Negative [facility] [employer] Other Quick Strep [employer] Other SARS-CoV-2 (COVID-19) RNA NA A+probe Ql (Resp)on 09-26-2022 SARS-CoV-2 (COVID-19) RNA ROB+probe Ql (Unsp spec) Negative [employer] Other PAP ACOG PANEL 2: 30 to 65on 09-01-2022 . . Normal [facility] Comment on above: Result Comment: Perf ormed at: WB Performed By: #### [id number] #### [facility] [address] [address] [address] Zonia Zhang Age Gdln ACOG Testing 30-65 Normal [facility] Comment on above: Performed By: #### [id number] #### [facility] [address] [address] [address] Zonia Zhang DIAGNOSIS: Comment [facility] Comment on above: Result Comment: NEGA TIVE FOR INTRAEPITHELIAL LESION OR MALIGNANCY. Performed at: WB Performed By: #### [id number] #### [facility] [address] [address] [address] Zonia Zhang HPV Aptima Negative Normal Negative [facility] Comment on above: Result Comment: This nucleic acid amplification test detects fourteen high-risk HPV types (16,18,31,33,35,39,45,51,52,56,58,59,66,68) without differentiation. Performed at: =G Performed By: #### [id number] #### [facility] [address] [address] [address] Zonia Zhang Methodology: Comment Normal [facility] Comment on above: Result Comment: This liquid based ThinPrep(R) pap test was screened with the use of an image guided system. Performed at: WB Performed By: #### [id number] #### [facility] [address] [place] [address] Dr. Zonia Zhang Note: Comment [facility] Comment on above: Result Comment: The Pap smear is a screening test designed to aid in the detection of premalignant and malignant conditions of the uterine cervix. It is not a diagnostic procedure and should not be used as the sole means of detecting cervical cancer. Both false-positive and false-negative reports do occur. . Performed at: WB Performed By: #### [id number] #### [facility] [address] [place] [address] Dr. Zonia Zhang Performed by: Comment Normal [facility] Comment on above: Result Comment: Negin Tomas, [employer] (ASCP) Performed at: WB Performed By: #### [id number] #### [facility] [address] [place] [address] Dr. Zonia Zhang Specimen adequacy: Comment Normal [facility] Comment on above: Result Comment: Sati sfactory for evaluation. Endocervical and/or squamous metaplastic cells (endocervical component) are present. Performed at: WB Performed By: #### [id number] #### [facility] [address] [place] [address] Dr. Zonia Zhang Basophils Auto (Bld) [#/Vol] Ordered By: Delano Francis on 08-07-2022 Basophils (Bld) [#/Vol] 0.0 10*3/uL 0.0-0.2 [facility] Basophils/100 WBC Auto (Bld) Ordered By: Delano Francis on 08-07-2022 Basophils/100 WBC (Bld) 0.5 % . [facility] Blood hemoglobin measurement (mass/volume)Ordered By: Delano Francis on 08-07-2022 Hemoglobin (Bld) [Mass/Vol] 12.7 g/dL 11.8-15.4 [facility] Blood leukocytes automated c ount (number/volume)Ordered By: Delano Francis on 08-07-2022 WBC (Bld) [#/Vol] 5.0 10*3/uL 4.5-11.0 [facility] Body fluid albumin measureme nt (mass/volume)Ordered By: Delano Francis on 08-07-2022 Albumin (Body fld) [Mass/Vol] 4.1 g/dL 3.2-5.5 [facility] Cholesterol [Mass/volume] in Serum or PlasmaOrdered By: Delano Francis on 08-07-2022 Cholesterol [Mass/Vol] 253 mg/dL 140-200 [facility] Comment on above: Chol less than 200 m g/dl low risk Chol 201-239 mg/dl borderline risk Chol 240 mg/dl and greater high risk Chol less than 200 m g/dl low riskChol 201-239 mg/dl borderline riskChol 240 mg/dl and greater high risk Cholesterol in LDL Calc [Mas s/Vol]Ordered By: Delano Francis on 08-07-2022 Cholesterol in LDL [Mass/Vol] 181 mg/dL 0-100 [facility] Comment on above: LDL ATP III CLASSIFI [...] 08-07-2022 Cholesterol in VLDL [Mass/Vol] 12 mg/dL [facility] Creatinine and Glomerular fi ltration rate.predicted panel (S/P/Bld)Ordered By: Delano Francis on 08-07-2022 Creatinine [Mass/Vol] 0.76 mg/dL 0.44-1.03 [facility] Eosinophils Auto (Bld) [#/Vo l]Ordered By: Delano Francis on 08-07-2022 Eosinophils (Bld) [#/Vol] 0.1 10*3/uL 0.0-0.45 [facility] Eosinophils/100 WBC Auto (Bl d)Ordered By: Delano Francis on 08-07-2022 Eosinophils/100 WBC (Bld) 1.6 % . [facility] Erythrocyte distribution wid th Auto (RBC) [Ratio]Ordered By: Delano Francis on 08-07-2022 Erythrocyte distribution width (RBC) [Ratio] 12.6 % 11.9-15.3 [facility] Estimated glomerular filtrat ion rate (GFR) non- AmericanOrdered By: Delano Francis on 08-07-2022 GFR/1.73 sq M.predicted among non-blacks MDRD (S/P/Bld) [Vol rate/Area] > 60 mL/Min [facility] Globulin Calc (S) [Mass/Vol] Ordered By: Delano Francis on 08-07-2022 Globulin (S) [Mass/Vol] 2.3 g/dL [facility] Hematocrit Auto (Bld) [Volum e fraction]Ordered By: Delano Francis on 08-07-2022 Hematocrit (Bld) [Volume fraction] 37.5 % 34.0-46.4 [facility] Laboratory - Chemistry and C hemistry - challengeOrdered By: Delano Francis on 08-07-2022 Glucose [Mass/Vol] 88 mg/dL 70-100 [facility] - Hematology and Cell countsOrdered By: Delano Francis on 08-07-2022 Nucleated RBC/100 WBC (Bld) [Ratio] 0.1 % 0-0.5 [facility] Lymphocytes Auto (Bld) [#/Vo l]Ordered By: Delano Francis on 08-07-2022 Lymphocytes (Bld) [#/Vol] 1.4 10*3/uL 1.00-4.8 [facility] Lymphocytes/100 WBC Auto (Bl d)Ordered By: Delano Francis on 08-07-2022 Lymphocytes/100 WBC (Bld) 28.1 % . [facility] MCH Auto (RBC) [Entitic mass ]Ordered By: Delano Francis on 08-07-2022 MCH (RBC) [Entitic mass] 31.8 pg 24.7-34.3 [facility] MCHC Auto (RBC) [Mass/Vol]Or dered By: Delano Francis on 08-07-2022 MCHC (RBC) [Mass/Vol] 33.8 g/dL 32.0-35.0 [facility] MCV Auto (RBC) [Entitic vol] Ordered By: Delano Francis on 08-07-2022 MCV (RBC) [Entitic vol] 94.3 fL 80-100 [facility] Monocyte %Ordered By: Delano Francis on 08-07-2022 Monocyte % 60 mg/dL 35-149 [facility] Comment on above: TRIG ATP III CLASSIF [...] 08-07-2022 Monocytes (Bld) [#/Vol] 0.5 10*3/uL 0.0-0.8 [facility] Monocytes/100 WBC Auto (Bld) Ordered By: Delano Francis on 08-07-2022 Monocytes/100 WBC (Bld) 10.1 % . [facility] Neutrophils Auto (Bld) [#/Vo l]Ordered By: Delano Farncis on 08-07-2022 Neutrophils (Bld) [#/Vol] 3.0 10*3/uL 1.8-7.7 [facility] Neutrophils/100 WBC Auto (Bl d)Ordered By: Delano Francis on 08-07-2022 Neutrophils/100 WBC (Bld) 59.7 % . [facility] No Panel InformationOrdered By: Delano Francis on 08-07-2022 Estimated GFR () > 60 mL/Min [facility] Comment on above: GFR estimated refere nce range: According to KDOQI guidelines, <60 ml/min/1.73m2 is sufficient to diagnose a patient with chronic kidney disease. Nicotine Metabolite Negative Cutoff=25 [facility] Comment on above: Performed at: [address] [id number] Director: Quinton Wolf MD, Phone: [phone] Pharmacy Creatinine Clearance (Chem N/A [facility] Platelet mean volume Auto (B ld) [Entitic vol]Ordered By: Delano Francis on 08-07-2022 Platelet mean volume (Bld) [Entitic vol] 7.8 fL 6.3-10.7 [facility] Platelets Auto (Bld) [#/Vol] Ordered By: Delano Francis on 08-07-2022 Platelets (Bld) [#/Vol] 275 10*3/uL 150-450 [facility] Protein [Mass/volume] in Ser um or PlasmaOrdered By: Delano Francis on 08-07-2022 Protein [Mass/Vol] 6.4 g/dL 6.1-7.9 [facility] RBC Auto (Bld) [#/Vol]Ordere d By: Delano Francis on 08-07-2022 RBC (Bld) [#/Vol] 3.97 10*6/uL 3.60-5.00 [facility] Serum or plasma alanine troy otransferase measurement without P-5'-P (enzymatic activiOrdered By: Delano Francis on 08-07-2022 ALT No additional P-5'-P [Catalytic activity/Vol] 13 U/L 10-60 [facility] Serum or plasma albumin/glob ulin mass ratioOrdered By: Delano Francis on 08-07-2022 Albumin/Globulin [Mass ratio] 1.8 {ratio} [facility] Serum or plasma alkaline nova sphatase measurement (enzymatic activity/volume)Ordered By: Delano Francis on 08-07-2022 ALP [Catalytic activity/Vol] 52 U/L 32-92 [facility] Serum or plasma anion gap de terminationOrdered By: Delano Franics on 08-07-2022 Anion gap [Moles/Vol] 11.7 mmol/L 6.0-15.0 [facility] Serum or plasma aspartate am inotransferase measurement (enzymatic activity/volume)Ordered By: Delano Francis on 08-07-2022 AST [Catalytic activity/Vol] 15 U/L 10-42 [facility] Serum or plasma calcium kevin urement (mass/volume)Ordered By: Delano Francis on 08-07-2022 Calcium [Mass/Vol] 9.8 mg/dL 8.2-10.2 [facility] Serum or plasma chloride ra surement (moles/volume)Ordered By: Delano Francis on 08-07-2022 Chloride [Moles/Vol] 101 mmol/L 95-114 [facility] Serum or plasma high density lipoprotein (HDL) cholesterol measurementOrdered By: Delano Francis on 08-07-2022 Cholesterol in HDL [Mass/Vol] 60 mg/dL 35-85 [facility] Comment on above: HDL CHOL ATP-III CLA SSIFICATION Cardiovascular Risk HDL > or equal to 60 mg/dL LOW HDL < 40 mg/dL HIGH HDL CHOL ATP-III CLA SSIFICATION Cardiovascular RiskHDL > or equal to 60 mg/dL LOWHDL < 40 mg/dL HIGH Serum or plasma potassium me asurement (moles/volume)Ordered By: Delano Francis on 08-07-2022 Potassium [Moles/Vol] 4.4 mmol/L 3.5-5.1 [facility] Serum or plasma sodium measu rement (moles/volume)Ordered By: Delano Francis on 08-07-2022 Sodium [Moles/Vol] 136 mmol/L 136-146 [facility] Serum or plasma total biliru bin measurement (mass/volume)Ordered By: Delano Francis on 08-07-2022 Bilirubin [Mass/Vol] 1.0 mg/dL 0.3-1.2 [facility] Serum or plasma total carbon dioxide measurement (moles/volume)Ordered By: Delano Francis on 08-07-2022 CO2 [Moles/Vol] 27.7 mmol/L 22.0-30.0 [facility] Serum or plasma total choles terol/high density lipoprotein (HDL) cholesterol mass ratOrdered By: Delano Francis on 08-07-2022 Cholesterol.total/Alivia sterol in HDL [Mass ratio] 4.2 {ratio} <5.0 [facility] Serum or plasma urea nitroge n measurement (mass/volume)Ordered By: Delano Francis on 08-07-2022 Urea nitrogen [Mass/Vol] 9 mg/dL 08-22 [facility] TSH DL <= 0.005 mIU/L QnOrde red By: Delano Francis on 08-07-2022 TSH Qn 1.43 m[IU]/L 0.45-5.33 [facility] T3, TOTAL (TRIIODOTHYRONINE) on 06-07-2022 T3, TOTAL 88 ng/dL Normal 71-180 [facility] Comment on above: Performed By: #### T 3TOTAL #### [facility] [address] [place] [address] Dr. Zonia Zhang FREE T4on 06-06-2022 Free T4 [Mass/Vol] 0.94 ng/dL Normal 0.76-1.46 [facility] Comment on above: Performed By: #### F T4 #### [facility] [address] [address] [address] Zonia Zhang TSHon 06-06-2022 TSH 1.364 uIU/mL Normal 0.358-3.74 0 [facility] Comment on above: Performed By: #### T SH #### [facility] [address] [place] [address] Dr. Zonia Zhang COVID Quick Testingon 2021 Result Positive [employer] Other Quick Fluon 12-27-2021 FLUAV Ab CF (S) [Titer] Negative N [employer] Other FLUBV Ab CF (S) [Titer] Negative N [employer] Other Vital Signs Date Time Vital Sign Value Performing Clinician Facility 08-03-2025 09:28-0400 Body mass index (BMI) [Ratio] 36.46 kg/m2 Ángel Sita BPeSA Phone: [facility] 08-03-2025 09:28-0400 Body weight 105.6 kg Ángel Sita DO Work Phone: [facility] 08-03-2025 09:28-0400 Diastolic blood pressure 76 mm[Hg] Ángel Sita DO Work Phone: [facility] 08-03-2025 09:28-0400 Systolic blood pressure 120 mm[Hg] Ángel Sita DO Work Phone: [facility] 07-24-2025 11:34-0400 Body mass index (BMI) [Ratio] 36.57 kg/m2 Ángel Sita DO Work Phone: [facility] 07-24-2025 11:34-0400 Body weight 105.92 kg Ángel Sita DO Work Phone: [facility] 07-24-2025 11:34-0400 Diastolic blood pressure 74 mm[Hg] Ángel Sita DO Work Phone: [facility] 07-24-2025 11:34-0400 Systolic blood pressure 118 mm[Hg] Ángel Sita DO Work Phone: [facility] 07-17-2025 14:59-0400 Body mass index (BMI) [Ratio] 36.77 kg/m2 Ángel Sita DO Work Phone: [facility] 07-17-2025 14:59-0400 Body weight 106.5 kg Ángel Sita DO Work Phone: [facility] 07-17-2025 14:59-0400 Diastolic blood pressure 70 mm[Hg] Ángel Sita DO Work Phone: [facility] 07-17-2025 14:59-0400 Systolic blood pressure 118 mm[Hg] Ángel Sita DO Work Phone: [facility] 07-10-2025 13:59-0400 Body mass index (BMI) [Ratio] 36.41 kg/m2 Ángel Sita DO Work Phone: [facility] 07-10-2025 13:59-0400 Body weight 105.46 kg Ángel Sita DO Work Phone: [facility] 07-10-2025 13:59-0400 Diastolic blood pressure 74 mm[Hg] Ángel Sita DO Work Phone: [facility] 07-10-2025 13:59-0400 Systolic blood pressure 126 mm[Hg] Ángel Sita DO Work Phone: [facility] 06-26-2025 13:08-0400 Body mass index (BMI) [Ratio] 36.2 kg/m2 Ángel Sita DO Work Phone: [facility] 06-26-2025 13:08-0400 Body weight 104.83 kg Ángel Sita DO Work Phone: [facility] 06-26-2025 13:08-0400 Diastolic blood pressure 74 mm[Hg] Ángel Sita DO Work Phone: [facility] 06-26-2025 13:08-0400 Systolic blood pressure 116 mm[Hg] Ángel Sita DO Work Phone: [facility] 06-12-2025 14:21-0400 Body mass index (BMI) [Ratio] 35.73 kg/m2 Ángel Sita DO Work Phone: [facility] 06-12-2025 14:21-0400 Body weight 103.47 kg Ángel Sita DO Work Phone: [facility] 06-12-2025 14:21-0400 Diastolic blood pressure 70 mm[Hg] Ángel Sita DO Work Phone: [facility] 06-12-2025 14:21-0400 Systolic blood pressure 120 mm[Hg] Ángel Sita DO Work Phone: [facility] 05-30-2025 09:10-0400 Body mass index (BMI) [Ratio] 35.52 kg/m2 Ángel Sita DO Work Phone: [facility] 05-30-2025 09:10-0400 Body weight 102.88 kg Ángel Sita DO Work Phone: [facility] 05-30-2025 09:10-0400 Diastolic blood pressure 78 mm[Hg] Ángel Sita DO Work Phone: [facility] 05-30-2025 09:10-0400 Systolic blood pressure 120 mm[Hg] Ángel Sita DO Work Phone: [facility] 05-01-2025 08:36-0400 Body mass index (BMI) [Ratio] 34.43 kg/m2 Deisy Adithya PA Work Phone: [facility] 05-01-2025 08:36-0400 Body weight 99.7 kg Deisy Adithya PA Work Phone: [facility] 05-01-2025 08:36-0400 Diastolic blood pressure 74 mm[Hg] Deisy [place] PA Work Phone: [facility] 05-01-2025 08:36-0400 Systolic blood pressure 118 mm[Hg] Deisy Adithya PA Work Phone: [facility] 03-30-2025 10:28-0400 Body mass index (BMI) [Ratio] 32.89 kg/m2 Ángel Sita DO Work Phone: [facility] 03-30-2025 10:28-0400 Body weight 95.25 kg Ángel Sita DO Work Phone: [facility] 03-30-2025 10:28-0400 Diastolic blood pressure 84 mm[Hg] Ángel Sita DO Work Phone: [facility] 03-30-2025 10:28-0400 Systolic blood pressure 120 mm[Hg] Ángel Sita DO Work Phone: [facility] 03-02-2025 09:58-0400 Body mass index (BMI) [Ratio] 31.76 kg/m2 Deisy Adithya PA Work Phone: [facility] 03-02-2025 09:58-0400 Body weight 91.99 kg Deisy Adithya PA Work Phone: [facility] 03-02-2025 09:58-0400 Diastolic blood pressure 72 mm[Hg] Deisy MUNOZ Work Phone: [facility] 03-02-2025 09:58-0400 Systolic blood pressure 120 mm[Hg] Deisy MUNOZ Work Phone: [facility] 02-02-2025 09:25-0500 Body mass index (BMI) [Ratio] 30.54 kg/m2 Ángel Sita DO Work Phone: [facility] 02-02-2025 09:25-0500 Body weight 88.45 kg Ángel Sita DO Work Phone: [facility] 02-02-2025 09:25-0500 Diastolic blood pressure 70 mm[Hg] Ángel Sita DO Work Phone: [facility] 02-02-2025 09:25-0500 Systolic blood pressure 120 mm[Hg] Ángel Sita DO Work Phone: [facility] 10-18-2024 11:19-0500 Body height 170.18 cm Robles Ball DO Work Phone: [facility] 10-18-2024 11:19-0500 Body mass index (BMI) [Ratio] 29.7 kg/m2 Robles Ball DO Work Phone: [facility] 10-18-2024 11:19-0500 Body weight 86.23 kg Robles Ball DO Work Phone: [facility] 10-18-2024 11:19-0500 Diastolic blood pressure 77 mm[Hg] Robles Ball DO Work Phone: [facility] 10-18-2024 11:19-0500 Heart rate 88 /min Robles Ball DO Work Phone: [facility] 10-18-2024 11:19-0500 Respiratory rate 12 /min Robles Ball DO Work Phone: [facility] 10-18-2024 11:19-0500 Systolic blood pressure 111 mm[Hg] Robles Ball DO Work Phone: [facility] 09-13-2024 14:28-0400 Body mass index (BMI) [Ratio] 28.79 kg/m2 Ángel Sita DO Work Phone: [facility] 09-13-2024 14:28-0400 Body weight 83.37 kg Ángel Sita DO Work Phone: [facility] 09-13-2024 14:28-0400 Diastolic blood pressure 70 mm[Hg] Ángel Sita DO Work Phone: [facility] 09-13-2024 14:28-0400 Systolic blood pressure 120 mm[Hg] Ángel Sita DO Work Phone: [facility] 05-03-2024 14:40-0400 Body height 170.18 cm [facility] 05-03-2024 14:40-0400 Body mass index (BMI) [Ratio] 28.3 kg/m2 [facility] 05-03-2024 14:40-0400 Body weight 82.1 kg [facility] 05-03-2024 14:40-0400 Diastolic blood pressure 82 mm[Hg] [facility] 05-03-2024 14:40-0400 Heart rate 78 /min [facility] 05-03-2024 14:40-0400 SaO2% (BldA) [Mass fraction] 98 % [facility] 05-03-2024 14:40-0400 Systolic blood pressure 122 mm[Hg] [facility] 01-06-2024 14:20-0500 Body height 170.2 cm Deisy MUNOZ Work Phone: [facility] 01-06-2024 14:20-0500 Body mass index (BMI) [Ratio] 28.05 kg/m2 Deisy MUNOZ Work Phone: [facility] 01-06-2024 14:20-0500 Body weight 81.25 kg Deisy MUNOZ Work Phone: [facility] 01-06-2024 14:20-0500 Diastolic blood pressure 70 mm[Hg] Deisy MUNOZ Work Phone: [facility] 01-06-2024 14:20-0500 Systolic blood pressure 120 mm[Hg] Deisy MUNOZ Work Phone: [facility] 10-02-2023 10:00-0400 Body height 170.18 cm Robles Ball Other [employer] Other 10-02-2023 10:00-0400 Body mass index (BMI) [Ratio] 29.38 kg/m2 Robles Ball Other [employer] Other 10-02-2023 10:00-0400 Body weight 85.1 kg Robles Ball Other [employer] Other 10-02-2023 10:00-0400 Diastolic blood pressure 83 mm[Hg] Robles Ball Other [employer] Other 10-02-2023 10:00-0400 Respiratory rate 12 /min Robles Ball Other [employer] Other 10-02-2023 10:00-0400 Systolic blood pressure 131 mm[Hg] Robles Ball Other [employer] Other 01-22-2023 10:30-0500 Body height 170.18 cm Robles Ball Other [employer] Other 01-22-2023 10:30-0500 Body mass index (BMI) [Ratio] 29.91 kg/m2 Robles Ball Other [employer] Other 01-22-2023 10:30-0500 Body weight 86.64 kg Robles Ball Other [employer] Other 01-22-2023 10:30-0500 Diastolic blood pressure 72 mm[Hg] Robles Ball Other [employer] Other 01-22-2023 10:30-0500 Respiratory rate 16 /min Robles Ball Other [employer] Other 01-22-2023 10:30-0500 Systolic blood pressure 122 mm[Hg] Robles Ball Other [employer] Other 09-26-2022 16:10-0400 Body height 170.18 cm Kiya Schaffer Other [employer] Other 09-26-2022 16:10-0400 Body mass index (BMI) [Ratio] 29.29 kg/m2 Kiya Schaffer Other [employer] Other 09-26-2022 16:10-0400 Body temperature 98.8 [degF] Kiya Schaffer Other [employer] Other 09-26-2022 16:10-0400 Body weight 84.82 kg Kiya Schaffer Other [employer] Other 09-26-2022 16:10-0400 Diastolic blood pressure 73 mm[Hg] Kiya Schaffer Other [employer] Other 09-26-2022 16:10-0400 Respiratory rate 18 /min Kiya Schaffer Other [employer] Other 09-26-2022 16:10-0400 SaO2% (BldA) [Mass fraction] 97 % Kiya Schaffer Other [employer] Other 09-26-2022 16:10-0400 Systolic blood pressure 125 mm[Hg] Kiya Schaffer Other [employer] Other 12-27-2021 10:15-0500 Body height 170.18 cm Elsi Mayer Other [employer] Other 12-27-2021 10:15-0500 Body mass index (BMI) [Ratio] 28.19 kg/m2 Elsi Mayer Other [employer] Other 12-27-2021 10:15-0500 Body temperature 100.3 [degF] Elsi Mayer Other [employer] Other 12-27-2021 10:15-0500 Body weight 81.65 kg Elsi Mayer Other [employer] Other 12-27-2021 10:15-0500 Respiratory rate 18 /min Elsi Mayer Other [employer] Other 12-27-2021 10:15-0500 SaO2% (BldA) [Mass fraction] 98 % Elsi Mayer Other [employer] Other Encounters Encounter Date Encounter Type Care Provider Facility Start: 08-03-2025 End: 08-03-2025 Bamboo flowsheet Ángel Sita DO Work Phone: [facility] Start: 08-03-2025 End: 08-03-2025 Bamboo flowsheet Ángel Sita DO Work Phone: [facility] Start: 08-03-2025 End: 08-03-2025 flow sheet Ángel Sita DO Work Phone: [facility] Comment on above: Third trimester preg lai ([facility]); 39 weeks gestation of ([facility]) Start: 08-03-2025 End: 08-03-2025 ambulatory ÁNGEL SITA Not Available Start: 07-29-2025 End: 07-29-2025 Clinisync Result Encounter Ángel Sita DO Work Phone: [facility] Unsolicited Start: 07-29-2025 End: 07-29-2025 Clinisync Result Encounter Ángel Sita DO Work Phone: [facility] Unsolicited Start: 07-24-2025 End: 07-24-2025 Bamboo flowsheet Ángel Sita DO Work Phone: [facility] Start: 07-24-2025 End: 07-24-2025 Bamboo flowsheet Ángel Sita DO Work Phone: [facility] Start: 07-24-2025 End: 07-24-2025 ambulatory ÁNGEL SITA Not Available Start: 07-24-2025 End: 07-24-2025 flow sheet Ángel Sita DO Work Phone: [facility] Comment on above: Third trimester preg lai ([facility]); 37 weeks gestation of ([facility]) Start: 07-22-2025 End: 07-22-2025 Clinisync Result Encounter Ángel Sita DO Work Phone: [facility] Unsolicited Start: 07-22-2025 End: 07-22-2025 Clinisync Result Encounter Ángel Sita DO Work Phone: [facility] Unsolicited Start: 07-17-2025 End: 07-17-2025 flow sheet Ángel Sita DO Work Phone: [facility] Comment on above: 36 weeks gestation o f ([facility]); Third trimester ([facility]); History of miscarriage; Multigravida of advanced maternal age in third trimester ([facility]); Excessive growth affecting management of in third trimester, single or unspecified fetus ([facility]) Start: 07-17-2025 End: 07-17-2025 ambulatory ÁNGEL SITA Not Available Start: 07-17-2025 End: 07-17-2025 Bamboo flowsheet Ángel Sita DO Work Phone: [facility] Start: 07-17-2025 End: 07-17-2025 Bamboo flowsheet Ángel Sita DO Work Phone: [facility] Start: 07-15-2025 End: 07-15-2025 Clinisync Result Encounter Ángel Sita DO Work Phone: [facility] Unsolicited Start: 07-15-2025 End: 07-15-2025 Clinisync Result Encounter Ángel Sita DO Work Phone: [facility] Unsolicited Start: 07-10-2025 End: 07-10-2025 Bamboo flowsheet Ángel Sita DO Work Phone: [facility] Start: 07-10-2025 End: 07-10-2025 Bamboo flowsheet Ángel Sita DO Work Phone: [facility] Start: 07-10-2025 End: 07-10-2025 flow sheet Ángel Sita DO Work Phone: [facility] Comment on above: Third trimester preg lai ([facility]); 35 weeks gestation of ([facility]) Start: 07-10-2025 End: 07-10-2025 ambulatory ÁNGEL SITA [...] Comment on above: Third trimester preg lai ([facility]); 33 weeks gestation of ([facility]) Start: 06-26-2025 End: 06-26-2025 ambulatory ÁNGEL SITA [...] sheet Ángel Sita DO Work Phone: [facility] Comment on above: Excessive grow th affecting management of in third trimester, single or unspecified fetus ([facility]) (Primary Dx); 31 weeks gestation of ([facility]); Third trimester ([facility]); History of miscarriage; Multigravida of advanced maternal age in third trimester ([facility]) Start: 06-12-2025 End: 06-12-2025 ambulatory ÁNGEL SITA [...] flow sheet Ángel Sita DO Work Phone: [facility] Comment on above: Third trimester preg lai ([facility]); 29 weeks gestation of ([facility]); History of miscarriage; Multigravida of advanced maternal age in third trimester ([facility]) Start: 05-30-2025 End: 05-30-2025 ambulatory ÁNGEL SITA Not Available Start: 05-11-2025 End: 05-11-2025 Clinisync Result Encounter Edson Dewitt POLYMERIZATION ENGINEER Work Phone: [facility] Unsolicited Start: 05-11-2025 End: 05-11-2025 Clinisync Result Encounter Edson Esdras POLYMERIZATION ENGINEER Work Phone: [facility] Unsolicited Start: [...] 03-21-2025 End: 03-21-2025 Clinisync Result Encounter Deisy Villar ALEXANDER Work Phone: [facility] Unsolicited Start: 03-21-2025 End: 03-21-2025 Clinisync Result Encounter Deisy Villar ALEXANDER Work Phone: [facility] Unsolicited Start: 03-02-2025 End: 03-02-2025 Bamboo flowsheet Deisy MUNOZ Work Phone: [facility] Start: 03-02-2025 End: 03-09-2025 Bamboo flowsheet Deisy Villar ALEXANDER Work Phone: [facility] Start: 03-02-2025 End: 03-09-2025 Clinisync Result Encounter Deisy Adithya PA Work Phone: [facility] Unsolicited Start: 03-02-2025 End: 03-03-2025 External Result Encounter Deisy Adithya PA Work Phone: [facility] Unsolicited Start: 03-02-2025 End: 03-02-2025 Patient encounter procedure Deisy Villar ALEXANDER Work Phone: [facility] Start: 03-02-2025 End: 03-02-2025 Periodic preventive med est patient 18-39 yrs Deisy Gonzalezashleigh MUNOZ Work Phone: [facility] Comment on above: 17 weeks gestation o f ; Second trimester ; Well woman exam with routine gynecological exam; Screening, , for anatomic survey; Exposure to STD; Vaginal discharge; Heartburn; Allergy, sequela Start: 03-02-2025 End: 03-02-2025 ambulatory DEISY ADITHYA Not Available Start: 02-02-2025 End: 02-02-2025 Bamboo [...] 10-18-2024 ambulatory Robles Charles DO Work Phone: [facility] Work Phone: Start: 10-18-2024 End: 10-18-2024 Encounter for general adult medical examination without abnormal findings Robles Charles DO Work Phone: [facility] Start: 10-18-2024 End: 10-18-2024 Patient encounter procedure Robles Charles DO Work Phone: [facility] Work Phone: Start: 10-16-2024 Patient encounter status Jermaine min Ball DO Work Phone: [facility] Start: 10-14-2024 Non-patient / Non-visit Melissa in Nela DO Work Phone: [facility] Work Phone: Start: 09-22-2024 End: 09-22-2024 Departed Referred DO Robles Charles Work Phone: [facility] Start: 09-22-2024 End: 09-22-2024 ambulatory DO Robles Charles Work Phone: [facility] Work Phone: Start: 09-13-2024 End: [...] End: 08-29-2024 Patient encounter procedure [facility] Work Phone: Start: 05-03-2024 End: 05-03-2024 ambulatory [facility] Work Phone: Start: 05-03-2024 End: 05-03-2024 Patient encounter procedure [facility] Work Phone: Start: 2024 End: 2024 ambulatory DO Robles Charles Work Phone: [facility] Work Phone: Start: 2024 End: 2024 Patient encounter procedure DO Robles Charles Work Phone: [facility] Work Phone: Start: 01-07-2024 End: 01-07-2024 Patient encounter procedure DO Robles Charles Work Phone: [facility] [place] Work Phone: Start: 01-07-2024 End: 01-07-2024 ambulatory DO Robles Charles Work Phone: [facility] Work Phone: Start: 01-06-2024 End: 01-06-2024 Office outpatient visit 15 minutes Deisy MUNOZ Work Phone: [facility] Comment on above: Encounter for weight management; Hormone disorder; 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 Start: 10-02-2023 End: 10-02-2023 ambulatory Robles Charles Other [facility] [employer] Other Start: 10-02-2023 Encounter for genera l adult medical examination without abnormal findings Robles Charles [facility] Start: 10-02-2023 Periodic preventive med est patient 18-[address] y[address] [facility] Start: 09-17-2023 End: 09-17-2023 ambulatory MD Liz Conteh Work Phone: [facility] Work Phone: Start: 09-17-2023 End: 09-17-2023 Departed Referred MD Liz Conteh Work Phone: [facility]Employee Benefit Screening Start: 01-22-2023 End: 01-22-2023 ambulatory Robles Charles Other [employer] Other Start: 01-22-2023 Office outpatient vi sit 15 minutes Robles Charles [facility] Start: 01-12-2023 End: 01-12-2023 ambulatory Robles Charles Other [employer] Other Start: 01-12-2023 Telephone encounter Robles Charles [facility] Start: 12-24-2022 End: 12-24-2022 ambulatory Robles Charles Other [employer] Other Start: 12-24-2022 Office outpatient vi sit 15 minutes Robles Charles [facility] Start: 09-30-2022 End: 09-30-2022 ambulatory Kiya Schaffer Other [employer] Other Start: 09-30-2022 Telephone encounter Kiya Schaffer [facility] [address] Start: 09-26-2022 End: 09-26-2022 Departed Referred MD Liz Conteh Work Phone: [facility] [place] Start: 09-26-2022 End: 09-26-2022 ambulatory MD Liz Conteh Work Phone: [facility] Work Phone: Start: 09-26-2022 Office outpatient vi sit 15 minutes Kiya Schaffer [facility] Start: 09-25-2022 ([facility] C Vac) [facility] Co vid Vaccine Subha Dillon [facility] Start: 09-25-2022 End: 09-25-2022 ambulatory MD Liz Conteh Work Phone: [facility] Work Phone: Start: 09-25-2022 End: 09-25-2022 Patient encounter procedure MD Liz Conteh Work Phone: [facility]Cov[facility] Vaccine Off Site Start: 08-25-2022 End: 08-25-[address] ÁNGEL BUCKNER Facility:[facility] Start: 08-07-2022 End: 08-07-2022 Departed Referred MD Liz Conteh Work Phone: [facility] Benefit Screening Start: 06-06-2022 End: 06-07-[address] ROBLES CHARLES Facility:[facility] Start: 01-01-2022 End: 01-01-2022 ambulatory Elsi Mayer Other [employer] Other Start: 01-01-2022 Office outpatient vi sit 5 minutes Elsi Leyla [facility] Start: 12-27-2021 End: 12-27-2021 ambulatory Elsi Leyla Other [employer] Other Start: 12-27-2021 Office outpatient vi sit 15 minutes Elsi Leyla [facility] Start: 08-23-2021 ([facility] C Vac) [facility] Co vid Vaccine Subha Kirtrodrigo [facility] Procedures Date Procedure Procedure Detail Performing Clinician Start: 08-03-2025 Urnls dip stick/tabl et rgnt non-auto w/o micrscp Ángel Sita DO Work Phone: Start: 07-29-2025 US OB BPP W NON-STRESS Ángel Sita DO Work Phone: Start: 07-24-2025 Urnls dip stick/tabl et rgnt [...] Ángel Sita DO Work Phone: Start: 06-10-2025 OB BPP W NON-STRESS Ángel Sita DO Work Phone: Start: 06-03-2025 OB BPP W NON-STRESS Ángel Sita DO Work Phone: Start: 05-30-2025 Urnls dip stick/tabl et rgnt non-auto w/o micrscp Ángel Sita DO Work Phone: Start: 05-11-2025 US OB GROWTH Edson E tank POLYMERIZATION ENGINEER Work Phone: Start: 04-18-2025 ALL CBC WITH AUTO DIFF Ángel Sita DO Work Phone: Start: 04-18-2025 GLUCOSE 1 HOUR Ángel Fa zio DO Work Phone: Start: 03-30-2025 Urnls dip stick/tabl et rgnt non-auto w/o micrscp Ángel Sita DO Work Phone: Start: 03-21-2025 OB ANATOMY Deisy [place] PA Work Phone: Start: 03-21-2025 US OB [...] 09-13-2029 Screening for malignant neoplasm of cervix [facility] Start: 03-02-2028 Screening for malignant neoplasm of cervix Pap Smear [facility] Start: 09-19-2025 End: 09-19-2025 Patient encounter procedure [facility] Start: 08-07-2025 End: 08-07-2025 Patient encounter procedure 08/07/2025 3:00 PM EDT Routine [facility] [address] [place] [id number] Ángel Buckner, DO [address] [place] [address] [facility] Start: 08-03-2025 End: 08-03-2025 Patient encounter procedure [facility] Comment on above: Arrived Start: 07-31-2025 Influenza vaccination [facility] Start: 07-24-2025 End: 07-24-2025 Patient encounter procedure 07/24/2025 11:20 AM EDT Routine [facility] [address] [place] [id number] Ángel Buckner, DO [address] [place] [address] [facility] Start: 07-17-2025 End: 07-17-2025 Patient encounter procedure [facility] Comment on above: Arrived Start: 07-10-2025 End: 07-10-2026 CULTURE, GROUP B STREP WITH SUSCEPTIBLITY CULTURE, GROUP B STREP WITH SUSCEPTIBLITY Lab Routine Third trimester ([facility]) Expected: 07/10/2025, Expires: 07/10/2026 [facility] Work [...] in third trimester, single or unspecified fetus ([facility]) Expected: 06/12/2025, Expires: 10/13/2025 [facility] Work Phone: Comment on above: Expected: 06/12/2025, Expires: Start: 05-30-2025 End: 11-30-2025 US biophysical profile w non stress test US biophysical profile w non stress test Imaging Routine History of miscarriage Multigravida of advanced maternal age in third trimester ([facility]) Expected: 05/30/2025 (Approximate), Expires: 11/30/2025 [facility] [...] Procedure [facility] [address] [place] [address] [facility] Start: 04-03-2025 End: 04-03-2025 Patient encounter procedure 04/03/2025 9:50 AM EDT Routine [facility] [address] [place] [address] Ángel Buckner, DO [address] [place] [address] [facility] Start: 04-03-2025 End: 04-03-2025 Professional / ancillary services management 04/03/2025 8:00 AM EDT Ancillary Procedure [facility] [address] [place] [address] [facility] Start: 03-30-2025 End: 03-30-2026 CBC panel - Blood by Automated count CBC Lab Routine Second trimester Diabetes mellitus screening Expected: 03/30/2025 (Approximate), Expires: 03/30/2026 [facility] Work Phone: Comment on above: Expected: 03/30/2025 (Approximate), Expi res: 03/30/2026 Start: 03-30-2025 End: 03-30-2026 Measurement of glucose 1 hour after glucose challenge for glucose tolerance test Glucose tolerance, 1 hour Lab Routine Second trimester Diabetes mellitus screening Expected: 03/30/2025 (Approximate), Expires: 03/30/2026 [facility] Comment on above: Expected: 03/30/2025 (Approximate), Expi res: 03/30/2026 Start: 03-30-2025 End: 06-30-2025 US for US OB limited 1+ fetuses Imaging Routine Encounter for follow-up ultrasound of anatomy Expected: 03/30/2025, Expires: 06/30/2025 [facility] Comment on above: Expected: 03/30/2025, Expires: Start: 03-30-2025 End: 03-30-2025 Patient encounter procedure [facility] Comment on above: Arrived Start: 03-02-2025 End: 04-01-2025 Alpha fetoprotein, maternal Alpha fetoprotein, maternal Lab Routine 17 weeks gestation of Second trimester Expected: 03/02/2025 (Approximate), Expires: 04/01/2025 [facility] Comment on above: Expected: 03/02/2025 (Approximate), Expi res: 04/01/2025 Start: 03-02-2025 End: 03-02-2026 US for US OB 14+ weeks anatomy scan Imaging Routine Screening, , for anatomic survey Expected: 03/02/2025, Expires: 03/02/2026 [facility] Comment on above: Expected: 03/02/2025, Expires: Start: 03-02-2025 End: 03-02-2025 Patient encounter procedure 03/02/2025 9:30 AM EDT Routine [facility] [address] [place] [address] Deisy Villar PA [address] [place] [address] Arrived [facility] Comment on above: Arrived Start: 02-02-2025 End: 02-02-2025 Patient encounter procedure [facility] Comment on above: Arrived Start: 01-05-2025 End: 01-05-2025 ambulatory 01/05/2025 1:30 PM EST Initial [facility] [address] [place] [address] [facility] Start: 01-05-2025 End: 01-05-2025 Professional / ancillary services management 01/05/2025 1:00 PM EST Ancillary Procedure [facility] [address] [place] [id number] [facility] Start: 09-13-2024 End: 09-13-2024 Patient encounter procedure [facility] Comment on above: Arrived Start: 07-31-2024 Influenza vaccination Influenza Vaccine (#1) [facility] Start: 02-03-2024 End: 02-03-2024 Patient encounter procedure 02/03/2024 1:50 PM EST Office Visit [facility] [address] [place] [phone] Deisy Villar PA [address] [place] [address] [facility] Start: 01-07-2024 Dehydroepiandrosterone sulfate level [facility] Start: 01-07-2024 Sex hormone binding globulin measurement [facility] Start: 01-07-2024 T3 reverse measurement [facility] Start: 01-07-2024 Thyroxine measurement [facility] Start: 01-07-2024 [facility] Start: 01-06-2024 End: 01-06-2025 Anti-thyroglobulin antibody Anti-thyroglobulin antibody Lab Routine Hormone disorder Expected: 01/06/2024 (Approximate), Expires: 01/06/2025 [facility] Comment on above: Expected: 01/06/2024 [...] Hormone disorder Expected: 01/06/2024 (Approximate), Expires: 01/06/2025 [facility] Comment on above: Expected: 01/06/2024 (Approximate), Expi res: 01/06/2025 Start: 01-06-2024 End: 01-06-2025 Insulin, total Insulin, total Lab Routine Hormone disorder Expected: 01/06/2024 (Approximate), Expires: 01/06/2025 [facility] Comment on above: Expected: 01/06/2024 (Approximate), Expi res: 01/06/2025 Start: 01-06-2024 End: 01-06-2025 Serotonin serum Serotonin serum Lab Routine Hormone disorder Expected: 01/06/2024 (Approximate), Expires: 01/06/2025 [facility] Comment on above: Expected: 01/06/2024 (Approximate), Expi res: 01/06/2025 Start: 01-06-2024 End: 01-06-2025 Thyroglobulin Thyroglobulin Lab Routine Hormone disorder Expected: 01/06/2024 (Approximate), Expires: 01/06/2025 [facility] Comment on above: Expected: 01/06/2024 (Approximate), Expi res: 01/06/2025 Start: 01-06-2024 End: 01-06-2025 Thyrotropin [Units/volume] in Serum or Plasma [facility] Comment on above: Ordered: 01/06/2024 Expected: 01/06/2024 (Approximate), Expires: 01/06/2025 Start: 09-17-2023 [facility] Start: 08-07-2022 [facility] Work Phone: Calcitriol [Mass/vol ume] in Serum or Plasma [facility] CHLAMYDIA TRACHOMATI S (GENITO/STI) CHLAMYDIA TRACHOMATIS (GENITO/STI) Lab Routine Exposure to STD Ordered: 03/02/2025 [facility] Comment on above: Ordered: 03/02/2025 Cytology Cervical or vaginal smear or scraping study Pap Smear Pathology and Cytology Routine Well woman exam with routine gynecological exam Ordered: 09/13/2024 [facility] Work Phone: Comment on above: Ordered: 09/13/2024 Cytology Cervical or vaginal smear or scraping study Pap Smear Pathology and Cytology Routine Well woman exam with routine gynecological exam Ordered: 03/02/2025 [facility] Comment on above: Ordered: 03/02/2025 DHEA-sulfate DHEA-sulfate Lab Routine Hormone disorder Ordered: 01/06/2024 [facility] Comment on above: Ordered: 01/06/2024 Estradiol Estradiol Lab Ro utine Hormone disorder Ordered: 01/06/2024 [facility] Work Phone: Comment on above: Ordered: 01/06/2024 Estradiol (E2) [Mass /volume] in Serum or Plasma [facility] [facility] Estrone Estrone Lab Rout ine Hormone disorder Ordered: 01/06/2024 [facility] Comment on above: Ordered: 01/06/2024 Estrone (E1) [Mass/v olume] in Serum or Plasma [facility] Ferritin [Mass/volum e] in Serum or Plasma Ferritin Lab Routine Hormone disorder Ordered: 01/06/2024 [facility] Comment on above: Ordered: 01/06/2024 Hemoglobin A1c measurement Hemog lobin A1c Lab Routine Hormone disorder Ordered: 01/06/2024 [facility] Comment on above: Ordered: 01/06/2024 Human papilloma viru s DNA [Presence] in Unspecified specimen by Probe with amplification HPV DNA probe, amplified Microbiology Routine Well woman exam with routine gynecological exam Ordered: 09/13/2024 [facility] Comment on above: Ordered: 09/13/2024 Human papilloma viru s DNA [Presence] in Unspecified specimen by Probe with amplification HPV DNA probe, amplified Microbiology Routine Well woman exam with routine gynecological exam Ordered: 03/02/2025 [facility] Comment on above: Ordered: 03/02/2025 Insulin [Units/volum e] in Serum or Plasma [facility] Neisseria gonorrhoea e DNA [Presence] in Unspecified specimen by ROB with probe detection Neisseria gonorrhea DNA probe, direct Lab Routine Exposure to STD Ordered: 03/02/2025 [facility] Comment on above: Ordered: 03/02/2025 Progesterone Progesterone Lab Routine Hormone disorder Ordered: 01/06/2024 [facility] Comment on above: Ordered: 01/06/2024 Progesterone [Mass/v olume] in Serum or Plasma [facility] Serotonin [Mass/volu me] in Plasma [facility] Sex hormone binding globulin Sex hormone binding globulin Lab Routine Hormone disorder Ordered: 01/06/2024 [facility] Comment on above: Ordered: 01/06/2024 SURESWAB(R) ADVANCED VAGINITIS PLUS, TMA SURESWAB(R) ADVANCED VAGINITIS PLUS, TMA Pathology and Cytology Routine Vaginal discharge Ordered: 03/02/2025 [facility] Work Phone: Comment on above: Ordered: 03/02/2025 T3, reverse T3, reverse Lab Routine Hormone disorder Ordered: 01/06/2024 [facility] Comment on above: Ordered: 01/06/2024 Testosterone Free [Mass/volume] in Serum or Plasma [facility] TESTOSTERONE, FREE TESTOSTERONE, FREE Lab Routine Hormone disorder Ordered: 01/06/2024 [facility] Comment on above: Ordered: 01/06/2024 Testosterone, free, total Testos terone, free, total Lab Routine Hormone disorder Ordered: 01/06/2024 [facility] Comment on above: Ordered: 01/06/2024 Throat culture Throat Culture [facility] Thyroglobulin Ab [Units/volume] in Serum or Plasma [facility] Thyroid peroxidase antibody Thyr oid peroxidase antibody Lab Routine Hormone disorder Ordered: 01/06/2024 [facility] Comment on above: Ordered: 01/06/2024 Thyroperoxidase Ab [Units/volume] in Serum or Plasma [facility] Thyroxine (T4) free [Mass/volume] in Serum or Plasma T4, free Lab Routine Hormone disorder Ordered: 01/06/2024 [facility] Comment on above: Ordered: 01/06/2024 Triiodothyronine (T3 ) Free [Mass/volume] in Serum or Plasma T3, free Lab Routine Hormone disorder Ordered: 01/06/2024 [facility] Comment on above: Ordered: 01/06/2024 Vitamin D 1,25 dihydroxy Vitamin D 1,25 dihydroxy Lab Routine Hormone disorder Ordered: 01/06/2024 [facility] Comment on above: Ordered: 01/06/2024 [facility] Work Phone: Immunizations Immunization Date Immunization Notes Care Provider Naeem pablo 09-15-2023 influenza, injectabl e, quadrivalent, preservative free [facility] 09-15-2023 influenza virus vaccine, unspecified formulation Ángel Buckner DO Work Phone: [facility] 09-25-2022 COVID-19 Moderna (BIvalent) Kiya Schaffer Other [facility] 08-23-2021 COVID-19 Pfizer Subha Fitt Other [facility] 07-31-2021 COVID-19 Pfizer Subha Fitt Other [facility] 05-19-2021 diphtheria, tetanus toxoids and pertussis vaccine [facility] Payers Date Payer Category Payer Self-pay [id number] 2022 Private Health Insurance [employer] [id number] 2022 Unknown [employer] [id number] 2022-Present [address] [place] [address] [id number] 1990 Unknown [id number] 2.16.840.1.877889.3.579.2 .593 1990 Unknown [id number] 2.16.840.1.827323.3.579.2 .593 1990 Unknown [id number] 2.16.840.1.148487.3.579.2 .1259 1990 Unknown [id number] 2.16.840.1.205218.3.579.2 .1259 1990 Unknown [id number] 2.16.840.1.100632.3.579.2 .1259 1990 Unknown [id number] 2.16.840.1.518625.3.579.2 .1259 1990 Unknown [id number] 2.16.840.1.936611.3.579.2 .1259 1990 Unknown [id number] 2.16.840.1.452330.3.579.2 .1259 1990 Unknown [id number] 2.16.840.1.317327.3.579.2 .9 1990 Unknown [id number] 2.16.840.1.704230.3.579.2 .1258 1990 Unknown [id number] 2.16.840.1.534994.3.579.2 .9 1990 Unknown [id number] 2.16.840.1.731436.3.579.2 .1258 1990 Unknown [id number] 2.16.840.1.748220.3.579.2 .1258 1990 Unknown [id number] 2.16.840.1.968892.3.579.2 .1258 1990 Unknown [id number] 2.16.840.1.886411.3.579.2 .1258 1990 Unknown [id number] 2.16.840.1.049749.3.579.2 .1258 1990 Unknown [id number] 2.16.840.1.494922.3.579.2 .1258 1990 Unknown [id number] 2.16.840.1.966885.3.579.2 .9 1959 Unknown [id number] 2.16.840.1.900852.19 Unknown [id number] 2.16.840.1.858817.3.579.2 .531 Unknown [id number] 2.16.840.1.100621.3.579.2 .531 Worker's Compensation [facility] t [place] [id number] Social History Date Type Detail Facility Start: 10-13-2023 End: 09-13-2024 Sex Assigned At [facility] Start: 1990 Sex Assigned At Female F [facility] Start: 08-13-2023 End: 05-03-2024 Tobacco smoking status UTIS Never smoked tobacco [facility] Start: 01-06-2024 End: 07-17-2025 Alcohol intake Current [...] [facility] Start: 10-18-2024 Sex Female (finding) [facility] Start: 11-16-2024 [facility] Clinical Notes 08-23-2021 to 08-03-2025 Mary Lou Kearney, JUAN JOSE - 08/03/2025 9:10 AM Margaret Dewitt, SHANNON - 07/24/2025 11:20 AM Joselito Kearney LPN - 07/17/2025 2:50 PM Margaret Dewitt NP - 07/10/2025 1:50 PM EDT Note Date & Type Note Facility 08-03-2025 History of Presen t illness Narrative Reason [...] nursing note reviewed. Exam conducted with a campus police officer present. Vitals: Estimated body mass index is 36.46 kg/m as calculated from the following: Height as of 01/06/24: 5' 7 . Weight as of this encounter: 232 lb 12.8 oz. BP: 120/76 Patient's last menstrual period was 11/02/2024. ASSESSMENT & PLAN ICD-10-CM 1. Third trimester ([facility]) Z34.93 POCT urinalysis dipstick manually resulted 2. 39 weeks gestation of ([facility]) Z3A.39 POCT urinalysis dipstick manually resulted Patient presents today for a routine obstetrics appointment. Patient is currently 39w1d with a Estimated Date of Delivery: 08/09/25. Patient to have IOL on 08/08/25 0600. RTC for appointment. Documented by Mary Lou Kearney LPN on behalf of: DO Gerardo Hansenally signed by Mary Lou Kearney LPN at 08/03/2025 10:17 AM EDT documented in this encounter [facility] 07-24-2025 History of Presen t illness Narrative [...] nursing note reviewed. Exam conducted with a campus police officer present. Vitals: Estimated body mass index is 36.57 kg/m as calculated from the following: Height as of 01/06/24: 5' 7 . Weight as of this encounter: 233 lb 8 oz. BP: 118/74 Patient's last menstrual period was 11/02/2024. ASSESSMENT & PLAN ICD-10-CM 1. Third trimester ([facility]) Z34.93 POCT urinalysis dipstick manually resulted 2. 37 weeks gestation of ([facility]) Z3A.37 Return OB: Patient presents today for [...] Ángel Buckner DO documented in this encounter [facility] 07-17-2025 History of Presen t illness Narrative [...] nursing note reviewed. Exam conducted with a campus police officer present. Vitals: Estimated body mass index is 36.77 kg/m as calculated from the following: Height as of 01/06/24: 5' 7 . Weight as of this encounter: 234 lb 12.8 oz. BP: 118/70 Patient's last menstrual period was 11/02/2024. ASSESSMENT & PLAN ICD-10-CM 1. 36 weeks gestation of ([facility]) Z3A.36 POCT urinalysis dipstick manually resulted 2. Third trimester ([facility]) Z34.93 POCT urinalysis dipstick manually resulted 3. History of miscarriage Z87.59 4. Multigravida of advanced maternal age in third trimester ([facility]) O09.523 5. Excessive growth affecting management of in third trimester, single or unspecified fetus ([facility]) O36.63X0 Patient presents today for a routine obstetrics appointment. Patient is currently 36w5d with a Estimated Date of Delivery: 08/09/25. Pelvic exam performed and patient is currently 2cm and 70% effaced. Patient to return to clinic in 1 week. Documented by Mary Lou Kearney LPN on behalf of: Ángel Buckner DO documented in this encounter [facility] 07-10-2025 History of Presen t illness Narrative [...] ASSESSMENT & PLAN ICD-10-CM 1. Third trimester ([facility]) Z34.93 CULTURE, GROUP B STREP WITH SUSCEPTIBLITY CULTURE, GROUP B STREP WITH SUSCEPTIBLITY 2. 35 weeks gestation of ([facility]) Z3A.35 POCT urinalysis dipstick manually resulted [...] Ángel Buckner DO documented in this encounter [facility] 06-26-2025 History of Presen t illness [...] nursing note reviewed. Exam conducted with a campus police officer present. Vitals: Estimated body mass index is 36.2 kg/m as calculated from the following: Height as of 01/06/24: 5' 7 . Weight as of this encounter: 231 lb 1.9 oz. BP: 116/74 Patient's last menstrual period was 11/02/2024. ASSESSMENT & PLAN (Z34.93) Third trimester ([facility]) Plan: POCT urinalysis dipstick manually resulted (Z3A.33) 33 weeks gestation of ([facility]) Plan: POCT urinalysis dipstick manually resulted Patient presents today for a routine obstetrics appointment. Patient is currently 33w5d with a Estimated Date of Delivery: 08/09/25. Patient to return to clinic in 2 weeks for GBS. Documented by Mary Lou Kearney LPN on behalf of: Ángel Buckner DO documented in this encounter [facility] 06-12-2025 History of Presen t illness [...] in third trimester, single or unspecified fetus ([facility]) O36.63X0 US OB follow up transabdominal approach 2. 31 weeks gestation of ([facility]) Z3A.31 POCT urinalysis dipstick manually resulted 3. Third trimester ([facility]) Z34.93 POCT urinalysis dipstick manually resulted 4. History of miscarriage Z87.59 5. Multigravida of advanced maternal age in third trimester ([facility]) O09.523 Return OB: Patient presents today for [...] Ángel Buckner DO documented in this encounter [facility] 05-30-2025 History of Presen t illness [...] nursing note reviewed. Exam conducted with a campus police officer present. Vitals: Estimated body mass index is 35.52 kg/m as calculated from the following: Height as of 01/06/24: 5' 7 . Weight as of this encounter: 226 lb 12.8 oz. BP: 120/78 Patient's last menstrual period was 11/02/2024. ASSESSMENT & PLAN ICD-10-CM 1. Third trimester ([facility]) Z34.93 POCT urinalysis dipstick manually resulted 2. 29 weeks gestation of ([facility]) Z3A.29 POCT urinalysis dipstick manually resulted 3. History of miscarriage Z87.59 4. Multigravida of advanced maternal age in third trimester ([facility]) O09.523 Return OB: Patient presents today for [...] Ángel Buckner DO documented in this encounter [facility] 05-01-2025 History of Presen t illness [...] Date Fatigue GARTH (generalized anxiety disorder) ([facility]) Hyperlipidemia ([facility]) Paronychia, finger HISTORY PAST MEDICAL HISTORY SOCIAL HISTORY Past Medical History: Diagnosis Date Fatigue GARTH (generalized anxiety disorder) ([facility]) Hyperlipidemia ([facility]) Paronychia, finger Social History Tobacco Use Smoking [...] nursing note reviewed. Exam conducted with a campus police officer present. Vitals: Estimated body mass index is [...] Edson Dewitt NP documented in this encounter [facility] 03-30-2025 History of Presen t illness [...] nursing note reviewed. Exam conducted with a campus police officer present. Vitals: Estimated body mass index is [...] Ángel Buckner DO documented in this encounter [facility] 03-02-2025 History of Presen t illness [...] nursing note reviewed. Exam conducted with a campus police officer present. Vitals: Estimated body mass index is [...] obtained without difficulty and patient was given [facility] order to have obtained. Orders Placed This [...] of: ALEXANDER Gramajo documented in this encounter [facility] 02-02-2025 History of Presen t illness [...] Ángel Buckner DO documented in this encounter [facility] 09-13-2024 History of Presen t illness [...] Date Fatigue GARTH (generalized anxiety disorder) ([facility]) Hyperlipidemia ([facility]) Paronychia, finger HISTORY PAST MEDICAL HISTORY SOCIAL HISTORY Past Medical History: Diagnosis Date Fatigue GARTH (generalized anxiety disorder) ([facility]) Hyperlipidemia (CMS/HCC) Paronychia, finger Social History Tobacco [...] nursing note reviewed. Exam conducted with a campus police officer present. Vitals: Estimated body mass index is [...] by Renu Charlton LPN on behalf of: Ángle Buckner DO documented in this encounter [facility] 01-06-2024 History of Presen t illness [...] of: ALEXANDER Gramajo documented in this encounter [facility] 10-02-2023 Evaluation note Encounter Date Diagnosis [...] prior to bedtime. Weight loss. Pepcid PRN [employer] Other 2023 Evaluation note* Encounter Date Diagnosis Assessment Notes Treatment Notes Treatment Clinical Notes Dec, Nasal turbinate hypertrophy (ICD-10 - J34.3) FLonase, saline NS, Sudafed and avoid use of Afin. Refer to ENT. Dec, Nonallergic vasomotor rhinitis (ICD-10 - J30.0) Prednisone tapered over 8 days. Claritin as needed. [employer] Other 02-13-2023 Evaluation note* Encounter Date Diagnosis Assessment Notes Treatment Notes Treatment Clinical Notes Dec, Acute non-recurrent maxillary sinusitis (ICD-10 - J01.00) [employer] Other 01-25-2023 Evaluation note* Encounter Date Diagnosis Assessment Notes Treatment Notes Treatment Clinical Notes Nov, Acute non-recurrent maxillary sinusitis (ICD-10 - J01.00) Instructed to use Robitussin or Mucinex for cough, saline or Flonase NS for congestion, Tylenol for pain and fever. [employer] Other 10-28-2022 Evaluation note* Encounter Date Diagnosis [...] (suspected) exposure to covid-19 (ICD-10 - Z20.822) [employer] Other 10-27-2022 Evaluation note* Encounter Date Diagnosis Assessment Notes Treatment Notes Treatment Clinical Notes Aug, Encounter for immunization (ICD-10 - Z23) Patient presents today for COVID-19 vaccination booster. Patient pre-vaccination form answers reviewed. Patient denies current illness or allergic reaction to any component of a COVD-19 vaccine. Patient provided with copy of current EUA. [employer] Other 02-02-2022 Evaluation note* Encounter Date Diagnosis [...] Patient care instructions given in writting by [employer] [facility] document. Additional time spent conducting pre-visit phone call, screening for symptoms, instructions on social distancing, application and removal of PPE, and cleaning of examination room, equipment and supplies was preformed. Patient education given for testing methodology and results. Patient care instructions given in writting by [employer] [facility] document. [employer] Other 01-28-2022 Evaluation note* Encounter Date Diagnosis [...] Patient care instructions given in writting by [email or web address] [facility] document. [employer] Other 09-24-2021 Evaluation note* Encounter Date Diagnosis Assessment Notes Treatment Notes Treatment Clinical Notes Jul, Encounter for immunization (ICD-10 - Z23) Patient presents for COVID-19 vaccination #2. Pre-screening form answers evaluated with patient. Patient denies current illness or allergic reaction to component of COVID-19 vaccine. Patient provided with current copy of EUA. [employer] Other Evaluation noteNo assessment information available [facility] Work Phone: Evaluation noteNo InformationNort Galavantier Other Evaluation note* Diagnosis Encounter for weight [...] (HHS-HCC) state, incidental 37 weeks gestation of (HHS-HCC) [facility] Diagnosis Third trimester (HHS-HCC) state, incidental 39 weeks gestation of (HHS-HCC) [facility] Narrative - Reported* Type Description Date Medical History Child X2 Natural Surgical History No know Surgical history Hospitalization History see above [employer] Other History general Narrative - Reported* Type Description Date Medical History Child X2 Natural Surgical History No Surgical history information Hospitalization History see above [employer] Other History general Narrative - Reported* Type Description Date Medical History Child X2 Natural Medical History Body mass index (BMI) of 25.0 to 29.9 Medical History Fatigue Medical History Hyperlipidemia, group A Medical History GARTH (generalized anxiety disorde r) Surgical History No know Surgical history Hospitalization History No know Hospitalization history [employer] Other Chief Complaint and Reason for Visit [...] Nasal turbinate hype rtrophy (J34.3) Referral Organization [facility] Nela russo Referring Provider First Name Robles Referring Provider Last Name Nela Referring Provider Specialty Internal Me dicine Referred Organization [facility] Referred Provider Robles Hernandez Referred Address ,[place], [place],[address] Referred Provider Specialty Otolaryngolo gy Referral Priority Routine Referral Appointment Date 2023-02-04 General Notes Rosangela Cruz 09:25:33 AM >received today, notes locked, insurance card attached, referral faxed Rosangela Cruz 01/29/2023 12:42:25 PM >Shannan at Dr. Rodriges office requested referral be faxed again to [phone]. done! Rosangela Cruz 02/05/2023 02:23:23 PM >notes [...] Primary Care Provider Active Delano Francis DO [facility] Attending Provider Active Team Status: Active [...] January 07, 2024 End: January 07, 2024 Campus Police Officer Relationship Specialty Start Date End Date Robles Charles MD [address] [place] [phone] PCP - General Internal Medicine 07/30/23 Team Status: Inactive Member Role Status Dates Robles Charles DO Primary Care Provide r, Attending Provider Active Start: 2024 End: 2024 Team Status: Inactive Member Role Status Dates Robles Charles DO Primary Care Provider Active Start: May 03, 2024 End: May 03, 2024 Caro Chacon APRN [employer]YMERIZATION ENGINEER[employer]C Attending Provider Act alex Start: May 03, 2024 End: May 03, 2024 Team Status: Inactive Member Role Status Dates Robles Charles DO Primary Care Provide r, Attending Provider Active Start: August 29, 2024 End: August 29, 2024 Campus Police Officer Relationship Specialty Start Date End Date Robles Charles MD [address] [place] [phone] PCP - General Internal Medicine 07/30/23 Deisy Villar PA [address] [place], [place] [address]jomar Ramachandran, [facility] PCP - Medical [employer] 11/30/23 11/29/99 Campus Police Officer Relationship Specialty Start Date End Date Robles Charles MD [address] [place] [phone] PCP - General Internal Medicine 07/30/23 Deisy Villar PA [facility] [place] [address] PCP - Medical [employer] 11/30/23 11/29/99 Campus Police Officer Relationship Specialty Start Date End Date Robles Charles MD [address] [place] [phone] PCP - General Internal Medicine 07/30/23 Deisy Villar PA [address] [place] [address] [place] [address] PCP - Medical [employer] 11/30/23 11/29/99 Team Status: Inactive Member [...] October 18, 2024 End: October 18, 2024 Campus Police Officer Relationship Specialty Start Date End Date Robles Charles MD [address] [place] [phone] PCP - General Internal Medicine 07/30/23 Deisy Villar PA [address] [place] [address] [place] [address] PCP - Medical [employer] 11/30/23 11/29/99 Campus Police Officer Relationship Specialty Start Date End Date Robles Charles MD [address] [place] [phone] PCP - General Internal Medicine 07/30/23 Deisy Villar PA [address] [place] [address] Tosin Ramachand[place]BELL [place], [place] [phone] PCP - Medical [employer] 11/30/23 11/29/99 Campus Police Officer Relationship Specialty Start Date End Date Robles Charles MD [address] [place] [phone] PCP - General Internal Medicine 07/30/23 Deisy Villar PA [address] [place] [address] [place] [address] PCP - Medical [employer] 11/30/23 11/29/99 Campus Police Officer Relationship Specialty Start Date End Date Robles Charles MD [address] [place] [phone] PCP - General Internal Medicine 07/30/23 Deisy Villar PA [address] [place] [address] [place] [address] PCP - Medical [employer] 11/30/23 11/29/99 Campus Police Officer Relationship Specialty Start Date End Date Robles Charles MD PCP - General Internal Medicine 07/30/23 Deisy Villar PA [address] [place], [place] [address]j[place] [place] [address] PCP - Medical [employer] 11/30/23 11/29/99 Campus Police Officer Relationship Specialty Start Date End Date Robles Charles DO PCP - General Internal Medicine 07/30/23 Deisy Villar PA [address] [place], [place] [address] [place] [address] PCP - Medical [employer] 11/30/23 11/29/99 Campus Police Officer Relationship Specialty Start Date End Date Robles Charles DO [address] [place] [facility] [phone] PCP - General Internal Medicine 07/30/23 Deisy Villar PA [facility] Radha Ramachandran, [facility] PCP - Medical [employer] 11/30/23 11/29/99 Campus Police Officer Relationship Specialty Start Date End Date Robles Charles DO [address] [place] [phone] PCP - General Internal Medicine 07/30/23 Deisy Villar PA [address] [place] [address] Tosin Ramachandran, [place] [address] PCP - Medical [employer] 11/30/23 11/29/99 Campus Police Officer Relationship Specialty Start Date End Date Robles Charles DO [address] [place] [phone] PCP - General Internal Medicine 07/30/23 Deisy Villar PA [address] [place], [place] [address]jomar Ramachandran, [facility] PCP - Medical [employer] 11/30/23 11/29/99 Campus Police Officer Relationship Specialty Start Date End Date Robles Charles DO [address] [place] [facility] [place] [address] PCP - General Internal Medicine 07/30/23 Deisy Villar PA [address] [place], [place] [address]jomar [place], [place] [id number] PCP - Medical [employer] 11/30/23 11/29/99 Campus Police Officer Relationship Specialty Start Date End Date Robles Charles DO [address] [place] [facility] [phone] PCP - General Internal Medicine 07/30/23 Deisy Villar PA [address] [place] [address] [place] [address] PCP - Medical [employer] 11/30/23 11/29/99 Campus Police Officer Relationship Specialty Start Date End Date Robles Charles DO [address] [place] [facility] [phone] PCP - General Internal Medicine 07/30/23 Deisy Villar PA [address] [place] [address] [place] [address] PCP - Medical [place] 11/30/23 11/29/99 Campus Police Officer Relationship Specialty Start Date End Date Robles Charles DO [address] [place] [facility] [address] PCP - General Internal Medicine 07/30/23 Deisy Villar PA [address] [place] [address] [place] [address] PCP - Medical [employer] 11/30/23 11/29/99 Campus Police Officer Relationship Specialty Start Date End Date Robles Charles DO [address] [place] [facility] [address] PCP - General Internal Medicine 07/30/23 Deisy Villar PA [address] [place] [address] PCP - Medical [employer] 11/30/23 11/29/99 Campus Police Officer Relationship Specialty Start Date End Date Robles Charles DO [address] [facility] [place] [address] PCP - General Internal Medicine 07/30/23 Deisy Villar PA [address] [place] [address] PCP - Medical [employer] 11/30/23 11/29/99 Campus Police Officer Relationship Specialty Start Date End Date Robles Charles DO [address] [facility] [place] [address] PCP - General Internal Medicine 07/30/23 Deisy Villar PA [address] [facility] [place] [address] PCP - Medical [employer] 11/30/23 11/29/99 Goals (unrecognized section and content) Goals may be documented in a n alternate section INFORMATION SOURCE (unrecogn ized section and content) DATE CREATED AUTHOR 09/02/2022 [facility] DATE CREATED AUTHOR AUTHOR'S ORGANIZ ATION 09/23/2024 [facility] DATE CREATED AUTHOR AUTHOR'S ORGANIZ ATION 08/05/2025 [facility] EPIC FOR RECORDS PERTAINING [...] BE BASED ON THE PRIMARY CLINICAL RECORDS. [facility]. provides no warranty or guarantee of the accuracy or completeness of information in this document.
[2025-08-05 08:07] VITALS: BP 122/77; PULSE 114
--- NOTE | 2025-08-05 08:29 | US_ITS ---
[address] [address] Patient Name: PHILLIP HERNANDEZ MRN: [id number]:[id number] date: 1990 Sex: F Assigned Patient Location: [facility] Current Patient Location: [facility] Accession/Order Number: [id number] Exam Date: 08/05/2025 08:35 Report Date: 08/05/2025 09:03 At the request of: LE DELVALLE DO Procedure: US OB BPP w non-stress Biophysical profile. Reason for exam: History of miscarriage. COMPARISON: 07/29/2025 TECHNIQUE: Transabdominal imaging of the gravid uterus was obtained. FINDINGS: The cryptozoologist reports a BPP of 8 out of 8. MARTY is normal at 12.6 cm. heart rate 132 bpm. US/US OB BPP w non-stress IMPRESSION: BPP 8 out of 8. Impression dictated by: Justin Mack Jr., D.O. 08/05/2025 9:03 AM Dictation Location: [facility] Electronically authenticated by: [id number] Y Date: 08/05/2025 09:03
== END 2025-08-05 08:55 | disposition home or self-care (01) ==
LOC: US 07:57 → FBC 07:59
PROVIDERS: PCP Internal Medicine; Visit Provider Obstetrics & Gynecology
DX: O09.523 Supervision of elderly multigravida, third trimester (principal); Z3A.39 39 weeks gestation of pregnancy
CPT/HCPCS: 76818

== ENCOUNTER 2025-08-07 20:44 | Inpatient (IN) | payer OTHER, SELFPAY ==
--- OUTSIDE RECORDS SUMMARY | 2025-08-03 09:10 | XMS_ITS | Encounter Summary ---
Author Organization [facility] Address [address] [place] [address] Care Team Providers Care Parts Specialist Name Role Phone Robles Charles DO Primary Care Provider [phone] Deisy Haji Unavailable Reason for Visit * Reason Comments Routine Visit Encounter Details Date Type Department Care Team (Late st Contact Info) Description 08/03/2025 9:10 AM EDT Routine [facility] [address] [place] [phone] Ángel Buckner DO [address] Arash [place], [facility] Third trimester ([facility]); 39 weeks gestation of ([facility]) Social History Tobacco Use Types Packs/Day [...] Sign Reading Time Taken Comments Blood Pressure 120/76 08/03/2025 9:28 AM EDT Pulse - - Temperature - - Respiratory Rate - - Oxygen Saturation - - Inhaled Oxygen Concentration - - Weight 106 kg (232 lb 12.8 oz) 08/03/2025 9:28 A M EDT Height - - Body Mass Index 36.46 01/06/2024 2:20 PM EST documented in this encounter Progress Notes * Mary Lou Kearney, JUAN JOSE - 08/03/2025 9:10 AM EDT Reason for Appointment: Patient ID: [...] nursing note reviewed. Exam conducted with a table games shift manager present. Vitals: Estimated body mass index is 36.46 kg/m?? as calculated from the following: Height as of 01/06/24: 5' 7 . Weight as of this encounter: 232 lb 12.8 oz. BP: 120/76 Patient's last menstrual period was 11/02/2024. ASSESSMENT & PLAN ICD-10-CM 1. Third trimester ([facility] Z34.93 POCT urinalysis dipstick manually resulted 2. 39 weeks gestation of ([facility] Z3A.39 POCT urinalysis dipstick manually resulted Patient presents today for a routine obstetrics appointment. Patient is currently 39w1d with a Estimated Date of Delivery: 08/09/25. Patient to have IOL on 08/08/25 0600. RTC for appointment. Documented by Mary Lou Kearney LPN on behalf of: Ángel Buckner DO documented in this encounter Plan of Treatment Upcoming Encounters Date Type Department Care Team (Late st Contact Info) Description 09/19/2025 8:30 AM EDT Office Visit [facility] [address] [place] [address] Ángel Buckner DO [address] [place] [address] documented as of this encounter Procedures Procedure Name Priority Date/Time Associated Diagnosis Comments POCT URINALYSIS DIPSTICK Routine 08/03/2025 9:37 AM EDT Third trimester ([facility]) 39 weeks gestation of ([facility]) documented in this encounter Results * (ABNORMAL) POCT urinalysis dipstick manually resulted (08/03/2025 9:37 AM EDT) Color, UA Yellow Clarity, UA [...] Leukocytes, UA Positive Negative - 500+++ Jason/mcL Nitrite, UA Negative Negative - Positive Urine 08/03/2025 9:37 AM EDT Ángel Buckner DO POINT OF CARE TEST ENTER/EDIT OR DERABLES Final Result documented in this encounter Visit Diagnoses Diagnosis Third trimester ([facility]) state, incidental 39 weeks gestation of ([facility]) documented in this encounter Care Teams Parts Specialist Relationship Specialty Start Date End Date Robles Charles DO [address] [facility] [place] [address] PCP - General Internal Medicine 07/30/23 Deisy Haji PA [address] [place] [address] [place] [address] PCP - Medical [employer] 11/30/23 11/29/99 documented as of this encounter
--- OUTSIDE RECORDS SUMMARY | 2025-08-07 15:00 | XMS_ITS | Encounter Summary ---
Author Organization [facility] Address [address] [place] [address] Care Team Providers Care Slots Manager Name Role Phone Robles Charles DO Primary Care Provider Deisy Haji Unavailable Reason for Visit * Reason Comments Routine Visit Encounter Details Date Type Department Care Team (Late st Contact Info) Description 08/07/2025 3:00 PM EDT Routine [facility] [address] [facility] [place] [phone] Ángel Buckner DO [address] [facility] [address] Arash Kaur, [facility]11 Third trimester ([facility] 39 weeks gestation of ([facility]) Social History Tobacco Use Types Packs/Day Years [...] Sign Reading Time Taken Comments Blood Pressure 130/80 08/07/2025 3:33 PM EDT Pulse - - Temperature - - Respiratory Rate - - Oxygen Saturation - - Inhaled Oxygen Concentration - - Weight 105 kg (232 lb) 08/07/2025 3:33 PM EDT Height - - Body Mass Index 36.34 01/06/2024 2:20 PM EST documented in this encounter Progress Notes * Mary Lou Kearney, DIRECTOR OF PERSONNEL - 08/07/2025 3:00 PM EDT Reason for Appointment: Patient ID: [...] nursing note reviewed. Exam conducted with a welfare eligibility interviewer present. Vitals: Estimated body mass index is 36.34 kg/m?? as calculated from the following: Height as of 01/06/24: 5' 7 . Weight as of this encounter: 232 lb. BP: 130/80 Patient's last menstrual period was 11/02/2024. ASSESSMENT & PLAN ICD-10-CM 1. Third trimester ([facility] Z34.93 POCT urinalysis dipstick manually resulted 2. 39 weeks gestation of ([facility]) Z3A.39 Patient presents today for a routine obstetrics appointment. Patient is currently 39w6d with a Estimated Date of Delivery: 08/09/25. Patient to have IOL on 08/08/25. Documented by Mary Lou Kearney LPN on behalf of: Ángel Buckner DO documented in this encounter Plan of Treatment Upcoming Encounters Date Type Department Care Team (Late st Contact Info) Description 09/19/2025 8:30 AM EDT Office Visit [facility] [address] [place] [address] Ángel Buckner DO [address] [place] [address] documented as of this encounter Procedures Procedure Name Priority Date/Time Associated Diagnosis Comments POCT URINALYSIS DIPSTICK Routine 08/07/2025 3:41 PM EDT Third trimester ([facility]) documented in this encounter Results * (ABNORMAL) POCT urinalysis dipstick manually resulted (08/07/2025 3:41 PM EDT) Color, UA Yellow Clarity, UA Clear Glucose, UA Negative Negative - 2000(110) ++++ mg/dL Bilirubin, UA Negative Negative - 4(70) +++ mg/dL Ketones, UA Negative Negative - 160(16) ++++ mg/dL Spec Grav, UA 1.025 1 - 1.03 Blood, UA Positive Negative - 50 Ezequiel/mcL pH, UA 6.0 5 - 9 Protein, UA Negative Negative - 2000(20) ++++ mg/dL Urobilinogen, UA 1.0 0.2 - 12 mg/dL Leukocytes, UA Negative Negative - 500+++ Jason/mcL Nitrite, UA Negative Negative - Positive Urine 08/07/2025 3:41 PM EDT Ángel Buckner DO POINT OF CARE TEST ENTER/EDIT OR DERABLES Final Result documented in this encounter Visit Diagnoses Diagnosis Third trimester ([facility]) state, incidental 39 weeks gestation of ([facility]) documented in this encounter Care Teams Slots Manager Relationship Specialty Start Date End Date Robles Charles DO [address] [facility] [place] [address] PCP - General Internal Medicine 07/30/23 Deisy Haji PA [address] [place] [address] [place] [address] PCP - Medical [place] [employer] 11/30/23 11/29/99 documented as of this encounter
--- OUTSIDE RECORDS SUMMARY | 2025-08-07 20:49 | XMS_ITS | CCD ---
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 Name Role Phone Subha Dillon Unavailable Elsi Mayer Unavailable MD Liz Conteh Primary Care Provider [phone] DO Delano Francis Attending Provider SITA, DR LUJAN Consulting Unavailable SITA, DR LUJAN Admitting Unavailable REQUEST, DR RAIN LISTED Primary Care Unavaila jt BUCKNER, DR LUJAN Attending Unavailable NELA, DR SEARS Attending Unavailable NELA, DR SEARS Consulting Unavailable NELA, DR SEARS Admitting Unavailable REQUEST, DR RAIN LISTED Primary Care Unavaila Kiya Gonsalves Unavailable MD Derick Timmons Attending Provider [phone] SHANNON Schaffer Attending Provider Robles Charles Unavailable [...] Unavailable Robles Charles DO Primary Care Provider [phone] On license of [facility] Delano CRESPO Attending Provider Robles [...] Attending Unavailable SITA, ÁNGEL Attending Unavailable SITA, ÁGNEL Attending Unavailable SITA, ÁNGEL Attending Unavailable Allergies Allergy Classification Reported Allergen(s) Allergy Type Date of Onset Reaction(s) Facility (5 sources) Penicillin V Drug Allergy rash [employer] [facility] [place] Other (1 source) Amoxicillin Drug Allergy [address] [facility] Repository (1 source) Penicillins Drug allergy (disorder) The [facility] Repository (5 sources) Penicillin Drug Allergy rash [employer] Other (1 source) Substance with penicillin structure and antibacterial mechanism of action (substance) Drug allergy 3 PENICILLINS [facility] [place] Other (20 sources) Amoxicillin Drug Allergy 3 [facility] (20 sources) Penicillin G Drug Allergy 3 Unknown [facility] Healthcare (1 source) Penicillins Drug allergy (disorder) 4 [facility] Repository Medications Current Medications Medication [...] 12/22/2024 02/02/2025 Active Pre- (10 sources) [facility] Active MV-Min-Fe Fum-FA-DH A ( [...] Facility US OB BPP W NON-STRESS on 08-05-2025 [place] [address] Ultrasound Report Signed Patient: ANGELA REYES MR#: [id number] : 1990 Acct:[id number] Age/Sex: 35 / F ADM Date: 08/05/25 Loc: [facility] 250-[address]: Ángel Buckner D.O. Ordering Physician: Ángel Buckner D.O. Date of Service: 08/05/25 Procedure(s): US OB BPP w non-stress Accession Number(s): [id number] cc: Robles Charles D.O.; Ángel Buckner D.O. The [address] [address] Patient Name: ANGELA REYES MRN: [facility]:[id number] date: 1990 Sex: F Assigned Patient Location: [facility] Current Patient Location: [facility] Accession/Order Number: [id number] Exam Date: 08/05/2025 08:35 Report Date: 08/05/2025 09:03 At the request of: ÁNGEL BUCKNER DO Procedure: US OB BPP w non-stress Biophysical profile. Reason for exam: History of miscarriage. COMPARISON: 07/29/2025 TECHNIQUE: Transabdominal imaging of the gravid uterus was obtained. FINDINGS: The anthropologist reports a BPP of 8 out of 8. MARTY is normal at 12.6 cm. heart rate 132 bpm. US/US OB BPP w non-stress IMPRESSION: BPP 8 out of 8. Impression dictated by: Justin Mack Jr., D.O. 08/05/2025 9:03 AM Dictation Location: [place] [address] Electronically authenticated by: [id number] Y Date: 08/05/2025 09:03 Dictated By: Justin Mack M.D. Signed By: 08/05/25904 DD/ 2 TD/TT: Chief Mechanical Officer: [facility] Radiology, Radiologbrittanie pa MD - 08/05/2025 [place] [address] Ultrasound Report Signed Patient: ANGELA REYES MR#: [id number] : 1990 Acct:[id number] Age/Sex: 35 / F ADM Date: 08/05/25 Loc: [facility] 250-[address]: Ángel Buckner D.O. Ordering Physician: Ángel Buckner D.O. Date of Service: 08/05/25 Procedure(s): US OB BPP w non-stress Accession Number(s): [id number] cc: Robles Charles D.O.; Ángel Buckner D.O. [place] [address] Patient Name: ANGELA REYES MRN: [facility]:[id number] date: 1990 Sex: F Assigned Patient Location: [facility] Current Patient Location: [facility] Accession/Order Number: [id number] Exam Date: 08/05/2025 08:35 Report Date: 08/05/2025 09:03 At the request of: ÁNGEL UBCKNER DO Procedure: US OB BPP w non-stress Biophysical profile. Reason for exam: History of miscarriage. COMPARISON: 07/29/2025 TECHNIQUE: Transabdominal imaging of the gravid uterus was obtained. FINDINGS: The anthropologist reports a BPP of 8 out of 8. MARTY is normal at 12.6 cm. heart rate 132 bpm. US/US OB BPP w non-stress IMPRESSION: BPP 8 out of 8. Impression dictated by: Justin Mack Jr., D.O. 08/05/2025 9:03 AM Dictation Location: [place] [address] Electronically authenticated by: [id number] Y Date: 08/05/2025 09:03 Dictated By: Justin Mack M.D. Signed By: 08/05/25904 DD/ 2 TD/TT: Chief Mechanical Officer: [facility] Radiology Study observation (narrative) [facility] US OB BPP W NON-STRESS Ordered By: Radiologist Radiology on 08-05-2025 [facility] Work Phone: Urinalysis macro (dipstick) panel (U)on 08-03-2025 Bilirubin, UA Negative Negative - 4(70) +++ mg/dL [facility] Blood, UA Negative Negative - 50 Ezequiel/mcL [facility] Clarity, UA Clear [facility] Color, UA Yellow [facility] Glucose, UA Negative Negative - 2000(110) ++++ mg/dL [facility] Interpretation and review of laboratory results Abnormal [facility] Ketones, UA Negative Negative - 160(16) ++++ mg/dL [facility] Leukocytes, UA Positive Negative - 500+++ Jason/mcL [facility] Nitrite, UA Negative Negative - Positive [facility] pH, UA 6 5 - 9 [facility] Protein, UA Negative Negative - 2000(20) ++++ mg/dL [facility] Spec Grav, UA 1.015 1 - 1.03 [facility] Urobilinogen, UA 1.0 0.2 - 12 mg/dL [facility] US OB BPP W NON-STRESS on 07-29-2025 [place] [address] Ultrasound Report Signed Patient: ANGELA REYES MR#: [id number] : 1990 Acct:[id number] Age/Sex: 35 / F ADM Date: 07/29/25 Loc: US Attending Dr: Ángel Buckner D.O. Ordering Physician: Ángel Buckner D.O. Date of Service: 07/29/25 Procedure(s): US OB BPP w non-stress Accession Number(s): [id number] cc: Robles Charles D.O.; Ángel Buckner D.O. [place] [address] Patient Name: ANGELA REYES MRN: [facility]:[id number] date: 1990 Sex: F Assigned Patient Location: [facility] Current Patient Location: Accession/Order Number: [id number] Exam Date: 07/29/2025 08:02 Report Date: 07/29/2025 [...] Yusuf M.D. 07/29/2025 11:10 AM Dictation Location: [place] [address] Electronically authenticated by: [id number] Y Date: 07/29/2025 11:10 Dictated By: Roddy Yusuf M.D. Signed By: 07/29/25 1112 DD/ 1110 TD/TT: Chief Mechanical Officer: [facility] Radiology, Radiologbrittanie pa MD - 07/29/2025 [place] [address] Ultrasound Report Signed Patient: ANGELA REYES MR#: [id number] : 1990 Acct:[id number] Age/Sex: 35 / F ADM Date: 07/29/25 Loc: US Attending Dr: Ángel Buckner D.O. Ordering Physician: Ángel Buckner D.O. Date of Service: 07/29/25 Procedure(s): US OB BPP w non-stress Accession Number(s): [id number] cc: Robles Charles D.O.; Ángel Buckner D.O. The [address] [id number] Patient Name: ANGELA REYES MRN: [facility]:[id number] date: 1990 Sex: F Assigned Patient Location: [facility] Current Patient Location: Accession/Order Number: [id number] Exam Date: 07/29/2025 08:02 Report Date: 07/29/2025 [...] Yusuf M.D. 07/29/2025 11:10 AM Dictation Location: [employer] Electronically authenticated by: [id number] Y Date: 07/29/2025 11:10 Dictated By: Roddy Yusuf M.D. Signed By: 07/29/25 1112 DD/ 1110 TD/TT: Chief Mechanical Officer: [facility] Radiology Study observation (narrative) [facility] US OB BPP W NON-STRESS Ordered By: Radiologist Radiology on 07-29-2025 [facility] Work Phone: Urinalysis macro (dipstick) panel (U)on 07-24-2025 Bilirubin, UA Negative Negative - 4(70) +++ mg/dL [facility] Blood, UA Negative Negative - 50 Ezequiel/mcL [facility] Clarity, UA Clear [facility] Color, UA Christine [facility] Glucose, UA Negative Negative - 2000(110) ++++ mg/dL [facility] Interpretation and review of laboratory results Abnormal [facility] Ketones, UA Negative Negative - 160(16) ++++ mg/dL [facility] Leukocytes, UA Positive Negative - 500+++ Jason/mcL [facility] Comment on above: 1+ Nitrite, UA Negative Negative - Positive [facility] pH, UA 6 5 - 9 [facility] Protein, UA Positive Negative - 2000(20) ++++ mg/dL [facility] Comment on above: 0.15 g/L Spec Grav, UA 1.015 1 - 1.03 [facility] Urobilinogen, UA 0.2 0.2 - 12 mg/dL [facility] US OB BPP W NON-STRESS on 07-22-[address] [address] Ultrasound Report Signed Patient: ANGELA REYES MR#: [id number] : 1990 Acct:[id number] Age/Sex: 35 / F ADM Date: 07/22/25 Loc: US Attending Dr: Ángel Buckner D.O. Ordering Physician: Ángel Buckner D.O. Date of Service: 07/22/25 Procedure(s): US OB BPP w non-stress Accession Number(s): [id number] cc: Robles Charles D.O.; Ángel Buckner D.O. [place] [address] Patient Name: ANGELA REYES MRN: [facility]:[id number] date: 1990 Sex: F Assigned Patient Location: US Current Patient Location: Accession/Order Number: [id number] Exam Date: 07/22/2025 07:58 Report Date: 07/22/2025 [...] Yusuf M.D. 07/22/2025 5:02 PM Dictation Location: [place] [address] Electronically authenticated by: [id number] Y Date: 07/22/2025 17:02 Dictated By: Roddy Yusuf M.D. Signed By: 07/22/252015 DD/ 01 TD/TT: Chief Mechanical Officer: [facility] Radiology, Radiologi MD ember - 07/22/2025 The [place] [id number] Ultrasound Report Signed Patient: ANGELA REYES MR#: [id number] : 1990 Acct:[id number] Age/Sex: 35 / F ADM Date: 07/22/25 Loc: US Attending Dr: Ángel Buckner D.O. Ordering Physician: Ángel Buckner D.O. Date of Service: 07/22/25 Procedure(s): US OB BPP w non-stress Accession Number(s): [id number] cc: Robles Charles D.O.; Ángel Buckner D.O. The [place] [id number] Patient Name: ANGELA REYES MRN: H:[id number] date: 1990 Sex: F Assigned Patient Location: US Current Patient Location: Accession/Order Number: [id number] Exam Date: 07/22/2025 07:58 Report Date: 07/22/2025 [...] Yusuf M.D. 07/22/2025 5:02 PM Dictation Location: [place] [address] Electronically authenticated by: [id number] Y Date: 07/22/2025 17:02 Dictated By: Roddy Yusuf M.D. Signed By: 07/22/252015 DD/ 01 TD/TT: Chief Mechanical Officer: [facility] Radiology Study observation (narrative) [facility] US OB BPP W NON-STRESS Ordered By: Radiologist Radiology on 07-22-2025 [facility] Work Phone: Urinalysis macro (dipstick) panel (U)on 07-17-2025 Bilirubin, UA Negative Negative - 4(70) +++ mg/dL [facility] Blood, UA Negative Negative - 50 Ezequiel/mcL [facility] Clarity, UA Clear [facility] Color, UA Yellow [facility] Glucose, UA Negative Negative - 2000(110) ++++ mg/dL [facility] Interpretation and review of laboratory results Abnormal [facility] Ketones, UA Negative Negative - 160(16) ++++ mg/dL [facility] Leukocytes, UA Positive Negative - 500+++ Jason/mcL [facility] Comment on above: 2+ Nitrite, UA Negative Negative - Positive [facility] pH, UA 6 5 - 9 [facility] Protein, UA Negative Negative - 2000(20) ++++ mg/dL [facility] Spec Grav, UA 1.015 1 - 1.03 [facility] Urobilinogen, UA 1.0 0.2 - 12 mg/dL [facility] US OB BPP W NON-STRESS on 07-15-2025 [place] [address] Ultrasound Report Signed Patient: ANGELA REYES MR#: [id number] : 1990 Acct:[id number] Age/Sex: 35 / F ADM Date: 07/15/25 Loc: US Attending Dr: Ángel Buckner D.O. Ordering Physician: Ángel Buckner D.O. Date of Service: 07/15/25 Procedure(s): US OB BPP w non-stress Accession Number(s): [id number] cc: Robles Charles D.O.; Ángel Buckner D.O. [address] [address] Patient Name: ANGELA REYES MRN: [facility]:[id number] date: 1990 Sex: F Assigned Patient Location: [facility] Current Patient Location: Accession/Order Number: [id number] Exam Date: 07/15/2025 09:17 Report Date: 07/15/2025 09:18 At the request of: ÁNGEL BUCKNER DO Procedure: US OB BPP w non-stress Biophysical profile. Reason for exam: Advanced maternal age COMPARISON: 07/08/2025 TECHNIQUE: Transabdominal imaging of the gravid uterus was obtained. FINDINGS: The anthropologist reports a BPP of 8 out of 8. MARTY is normal at 14 cm. heart rate 136 bpm. US/US OB BPP w non-stress IMPRESSION: BPP 8 out of 8. Impression dictated by: Justin Mack Jr., D.O. 07/15/2025 9:18 AM Dictation Location: [place] [address] Electronically authenticated by: [id number] Y Date: 07/15/2025 09:18 Dictated By: Justin Mack M.D. Signed By: 07/15/25919 DD/ 7 TD/TT: Chief Mechanical Officer: [facility] Radiology Radiologbrittanie pa MD - 07/15/2025 [place] [address] Ultrasound Report Signed Patient: ANGELA REYES MR#: [id number] : 1990 Acct:[id number] Age/Sex: 35 / F ADM Date: 07/15/25 Loc: US Attending Dr: Ángel Buckner D.O. Ordering Physician: Ángel Buckner D.O. Date of Service: 07/15/25 Procedure(s): US OB BPP w non-stress Accession Number(s): [id number] cc: Robles Charles D.O.; Ángel Buckner D.O. The [place] [address] Patient Name: ANGELA REYES MRN: [facility]:[id number] date: 1990 Sex: F Assigned Patient Location: [facility] Current Patient Location: Accession/Order Number: [id number] Exam Date: 07/15/2025 09:17 Report Date: 07/15/2025 09:18 At the request of: ÁNGEL BUCKNER DO Procedure: US OB BPP w non-stress Biophysical profile. Reason for exam: Advanced maternal age COMPARISON: 07/08/2025 TECHNIQUE: Transabdominal imaging of the gravid uterus was obtained. FINDINGS: The anthropologist reports a BPP of 8 out of 8. MARTY is normal at 14 cm. heart rate 136 bpm. US/US OB BPP w non-stress IMPRESSION: BPP 8 out of 8. Impression dictated by: Justin Mack Jr., D.O. 07/15/2025 9:18 AM Dictation Location: [employer] [facility] Electronically authenticated by: [id number] Y Date: 07/15/2025 09:18 Dictated By: Justin Mack M.D. Signed By: 07/15/25919 DD/ 7 TD/TT: Chief Mechanical Officer: [facility] Radiology Study observation (narrative) [facility] US OB BPP W NON-STRESS Ordered By: Radiologist Radiology on 07-15-2025 [facility] Work Phone: Urinalysis macro (dipstick) panel (U)on 07-10-2025 Bilirubin, UA Negative Negative - 4(70) +++ mg/dL [facility] Blood, UA Negative Negative - 50 Ezequiel/mcL [facility] Clarity, UA Clear [facility] Color, UA Yellow [facility] Glucose, UA Negative Negative - 1999(110) ++++ mg/dL [facility] Interpretation and review of laboratory results Abnormal [facility] Ketones, UA Negative Negative - 160(16) ++++ mg/dL [facility] Leukocytes, UA Positive Negative - 500+++ Jason/mcL [facility] Comment on above: small Nitrite, UA Negative Negative - Positive [facility] pH, UA 6 5 - 9 [facility] Protein, UA Negative Negative - 1999(20) ++++ mg/dL [facility] Spec Grav, UA 1.015 1 - 1.03 [facility] Urobilinogen, UA 0.2 0.2 - 12 mg/dL [facility] US OB BPP W NON-STRESS on 07-08-2025 [place] [id number] Ultrasound Report Signed Patient: ANGELA REYES MR#: [id number] : 1990 Acct:[id number] Age/Sex: 35 / F ADM Date: 07/08/25 Loc: US Attending Dr: Ángel Buckner D.O. Ordering Physician: Ángel Buckner D.O. Date of Service: 07/08/25 Procedure(s): US OB BPP w non-stress Accession Number(s): [id number] cc: Robles Charles D.O.; Ángel Buckner D.O. [address] [address] Patient Name: ANGELA REYES MRN: [facility]:[id number] date: 1990 Sex: F Assigned Patient Location: [facility] Current Patient Location: Accession/Order Number: [id number] Exam Date: 07/08/2025 09:19 Report Date: 07/08/2025 09:19 At the request of: ÁNGEL BUCKNER DO Procedure: US OB BPP w non-stress Biophysical profile. Reason for exam: History of miscarriage COMPARISON: 07/01/2025 TECHNIQUE: Transabdominal imaging of the gravid uterus was obtained. FINDINGS: The anthropologist reports a BPP of 8 out of 8. MARTY is normal at 12.5 cm. heart rate 135 bpm. US/US OB BPP w non-stress IMPRESSION: BPP 8 out of 8. Impression dictated by: Justin Mack Jr., D.O. 07/08/2025 9:19 AM Dictation Location: [place] [address] Electronically authenticated by: [id number] Y Date: 07/08/2025 09:19 Dictated By: Justin Mack M.D. Signed By: 07/08/25921 DD/ 8 TD/TT: Chief Mechanical Officer: [facility] Radiology, Radiolkrystle pa MD - 07/08/2025 [place] [address] Ultrasound Report Signed Patient: ANGELA REYES MR#: [id number] : 1990 Acct:[id number] Age/Sex: 35 / F ADM Date: 07/08/25 Loc: US Attending Dr: Ángel Buckner D.O. Ordering Physician: Ángel Buckner D.O. Date of Service: 07/08/25 Procedure(s): US OB BPP w non-stress Accession Number(s): [id number] cc: Robles Charles D.O.; Ángel Buckner D.O. The [place] [address] Patient Name: ANGELA REYES MRN: [facility]:[id number] date: 1990 Sex: F Assigned Patient Location: [facility] Current Patient Location: Accession/Order Number: [id number] Exam Date: 07/08/2025 09:19 Report Date: 07/08/2025 09:19 At the request of: ÁNGEL BUCKNER DO Procedure: US OB BPP w non-stress Biophysical profile. Reason for exam: History of miscarriage COMPARISON: 07/01/2025 TECHNIQUE: Transabdominal imaging of the gravid uterus was obtained. FINDINGS: The anthropologist reports a BPP of 8 out of 8. MARTY is normal at 12.5 cm. heart rate 135 bpm. US/US OB BPP w non-stress IMPRESSION: BPP 8 out of 8. Impression dictated by: Justin Mack Jr., D.O. 07/08/2025 9:19 AM Dictation Location: [place] [address] Electronically authenticated by: [id number] Y Date: 07/08/2025 09:19 Dictated By: Justin Mack M.D. Signed By: 07/08/25921 DD/ 8 TD/TT: Chief Mechanical Officer: [facility] Radiology Study observation (narrative) [facility] US OB BPP W NON-STRESS Ordered By: Radiologist Radiology on 07-08-2025 [facility] Work Phone: US OB BPP W NON-STRESS on 07-01-2025 [place] [address] Ultrasound Report Signed Patient: ANGELA REYES MR#: [id number] : 1990 Acct:[id number] Age/Sex: 35 / F ADM Date: 07/01/25 Loc: US Attending Dr: Ángel Buckner D.O. Ordering Physician: Ángel Buckner D.O. Date of Service: 07/01/25 Procedure(s): US OB BPP w non-stress Accession Number(s): [id number] cc: Robles Charles D.O.; Ángel Buckner D.O. [place] [id number] Patient Name: ANGELA REYES MRN: [facility]:[id number] date: 1990 Sex: F Assigned Patient Location: [facility] Current Patient Location: Accession/Order Number: [id number] Exam Date: 07/01/2025 20:05 Report Date: 07/01/2025 [...] Yusuf M.D. 07/01/2025 8:07 PM Dictation Location: [facility] Electronically authenticated by: [id number] Y Date: 07/01/2025 20:07 Dictated By: Roddy Yusuf M.D. Signed By: 07/01/252008 DD/ 06 TD/TT: Chief Mechanical Officer: [facility] Tyrese Wolff MD - 07/01/2025 [place] [address] Ultrasound Report Signed Patient: ANGELA REYES MR#: [id number] : 1990 Acct:[id number] Age/Sex: 35 / F ADM Date: 07/01/25 Loc: US Attending Dr: Ángel Buckner D.O. Ordering Physician: Ángel Buckner D.O. Date of Service: 07/01/25 Procedure(s): US OB BPP w non-stress Accession Number(s): [id number] cc: Robles Charles D.O.; Ángel Buckner D.O. The [place] [address] Patient Name: ANGELA REYES MRN: [facility]:[id number] date: 1990 Sex: F Assigned Patient Location: [facility] Current Patient Location: Accession/Order Number: [id number] Exam Date: 07/01/2025 20:05 Report Date: 07/01/2025 [...] Yusuf M.D. 07/01/2025 8:07 PM Dictation Location: [place] [address] Electronically authenticated by: [id number] Y Date: 07/01/2025 20:07 Dictated By: Roddy Yusuf M.D. Signed By: 07/01/252008 DD/ 06 TD/TT: Chief Mechanical Officer: [facility] Radiology Study observation (narrative) [facility] US OB BPP W NON-STRESS Ordered By: Radiologist Radiology on 07-01-2025 [facility] Work Phone: US OB FOLLOW UP TRANSABDOMIN [...] Negative Negative - 4(70) +++ mg/dL [facility] Blood, UA Negative Negative - 50 Ezequiel/mcL [facility] Clarity, UA Clear [facility] Color, UA Yellow [facility] Glucose, UA Negative Negative - 1999(110) ++++ mg/dL [facility] Interpretation and review of laboratory results Normal [facility] Ketones, UA Negative Negative - 160(16) ++++ mg/dL [facility] Leukocytes, UA Negative Negative - 500+++ Jason/mcL [facility] Nitrite, UA Negative Negative - Positive [facility] pH, UA 6.5 5 - 9 [facility] Protein, UA Negative Negative - 1999(20) ++++ mg/dL [facility] Spec Grav, UA 1.01 1 - 1.03 [facility] Urobilinogen, UA 1.0 0.2 - 12 mg/dL [facility] US OB BPP W NON-STRESS on 06-24-2025 [place] [address] Ultrasound Report Signed Patient: ANGELA REYES MR#: [id number] : 1990 Acct:[id number] Age/Sex: 35 / F ADM Date: 06/24/25 Loc: US Attending Dr: Ángel Buckner D.O. Ordering Physician: Ángel Buckner D.O. Date of Service: 06/24/25 Procedure(s): US OB BPP w non-stress Accession Number(s): [id number] cc: Robles Charles D.O.; Ángel Buckner D.O. [address] [id number] Patient Name: ANGELA REYES MRN: [facility]:[id number] date: 1990 Sex: F Assigned Patient Location: Current Patient Location: Accession/Order Number: [id number] Exam Date: 06/24/2025 09:33 Report Date: 06/24/2025 09:34 At the request of: ÁNGEL BUCKNER DO Procedure: US OB BPP w non-stress Biophysical profile. Reason for exam: History of miscarriage COMPARISON: 06/17/2025 TECHNIQUE: Transabdominal imaging of the gravid uterus was obtained. FINDINGS: The anthropologist reports a BPP of 8 out of 8. MARTY is normal at 15 cm. heart rate 130 bpm. US/US OB BPP w non-stress IMPRESSION: BPP 8 out of 8. Impression dictated by: Justin Mack Jr., D.O. 06/24/2025 9:34 AM Dictation Location: [place] [address] Electronically authenticated by: [id number] Y Date: 06/24/2025 09:34 Dictated By: Justin Mack M.D. Signed By: 06/24/2536 DD/ 3 TD/TT: Chief Mechanical Officer: [facility] Radiology, Radiologi MD ember - 06/24/2025 [place] [address] Ultrasound Report Signed Patient: ANGELA REYES MR#: [id number] : 1990 Acct:[id number] Age/Sex: 35 / F ADM Date: 06/24/25 Loc: US Attending Dr: Ángel Buckner D.O. Ordering Physician: Ángel Buckner D.O. Date of Service: 06/24/25 Procedure(s): US OB BPP w non-stress Accession Number(s): [id number] cc: Robles Charles D.O.; Ángel Buckner D.O. The [place] [address] Patient Name: ANGELA REYES MRN: [facility]:[id number] date: 1990 Sex: F Assigned Patient Location: US Current Patient Location: Accession/Order Number: [id number] Exam Date: 06/24/2025 09:33 Report Date: 06/24/2025 09:34 At the request of: ÁNGEL BUCKNER DO Procedure: US OB BPP w non-stress Biophysical profile. Reason for exam: History of miscarriage COMPARISON: 06/17/2025 TECHNIQUE: Transabdominal imaging of the gravid uterus was obtained. FINDINGS: The anthropologist reports a BPP of 8 out of 8. MARTY is normal at 15 cm. heart rate 130 bpm. US/US OB BPP w non-stress IMPRESSION: BPP 8 out of 8. Impression dictated by: Justin Mack Jr., D.O. 06/24/2025 9:34 AM Dictation Location: [place] [address] Electronically authenticated by: [id number] Y Date: 06/24/2025 09:34 Dictated By: Justin Mack M.D. Signed By: 06/24/2536 DD/ 3 TD/TT: Chief Mechanical Officer: [facility] Radiology Study observation (narrative) [facility] US OB BPP W NON-STRESS Ordered By: Radiologist Radiology on 06-24-2025 [facility] Work Phone: US OB BPP W NON-STRESS on 06-17-2025 [place] [address] Ultrasound Report Signed Patient: ANGELA REYES MR#: [id number] : 1990 Acct:[id number] Age/Sex: 35 / F ADM Date: 06/17/25 Loc: [facility] 250- Attending Dr: Ángel Buckner D.O. Ordering Physician: Ángel Buckner D.O. Date of Service: 06/17/25 Procedure(s): US OB BPP w non-stress Accession Number(s): [id number] cc: Robles Charles D.O.; Ángel Buckner D.O. The [place] [address] Patient Name: ANGELA REYES MRN: [facility]:[id number] date: 1990 Sex: F Assigned Patient Location: [facility] Current Patient Location: [facility] Accession/Order Number: [id number] Exam Date: 06/17/2025 09:17 Report Date: 06/17/2025 09:20 At the request of: ÁNGLE BUCKNER DO Procedure: US OB BPP w non-stress Biophysical profile INDICATION: Multigravida of advanced maternal age COMPARISON: None FINDINGS AND IMPRESSION:: Fetus cephalic position with heart rate 155 bpm. 8 out of 8 score biophysical profile largest fluid pocket measuring 4.6 cm. MARTY is 14.1 cm. Impression dictated by: Carlton Ramachandran M.D. 06/17/2025 9:20 AM Dictation Location: [place] [address] Electronically authenticated by: [id number] Y Date: 06/17/2025 09:20 Dictated By: Carlton Ramachandran M.D. Signed By: 06/17/25921 DD/ 9 TD/TT: Chief Mechanical Officer: [facility] Radiology, Radiologi MD ember - 06/17/2025 [place] [address] Ultrasound Report Signed Patient: ANGELA REYES MR#: [id number] : 1990 Acct:[id number] Age/Sex: 35 / F ADM Date: 06/17/25 Loc: [facility] 250-[address]: Ángel Buckner D.O. Ordering Physician: Ángel Buckner D.O. Date of Service: 06/17/25 Procedure(s): US OB BPP w non-stress Accession Number(s): [id number] cc: Robles Charles D.O.; Ángel Buckner D.O. The [place] [id number] Patient Name: ANGELA REYES MRN: [facility]:[id number] date: 1990 Sex: F Assigned Patient Location: [facility] Current Patient Location: [facility] Accession/Order Number: [id number] Exam Date: 06/17/2025 09:17 Report Date: 06/17/2025 [...] Ramachandran M.D. 06/17/2025 9:20 AM Dictation Location: [place] [address] Electronically authenticated by: [id number] Y Date: 06/17/2025 09:20 Dictated By: Carlton Ramachandran M.D. Signed By: 06/17/25921 DD/ 9 TD/TT: Chief Mechanical Officer: [facility] Radiology Study observation (narrative) [facility] US OB BPP W NON-STRESS Ordered By: Radiologist Radiology on 06-17-2025 [facility] Work Phone: US OB BPP W NON-STRESS on 06-10-2025 [place] [address] Ultrasound Report Signed Patient: ANGELA REYES MR#: [id number] : 1990 Acct:[id number] Age/Sex: 35 / F ADM Date: 06/10/25 Loc: US Attending Dr: Ángel Buckner D.O. Ordering Physician: Ángel Buckner D.O. Date of Service: 06/10/25 Procedure(s): US OB BPP w non-stress Accession Number(s): [id number] cc: Robles Charles D.O.; Ángel Buckner D.O. [place] [address] Patient Name: ANGELA REYES MRN: [facility]:[id number] date: 1990 Sex: F Assigned Patient Location: [facility] Current Patient Location: Accession/Order Number: [id number] Exam Date: 06/10/2025 18:36 Report Date: 06/10/2025 [...] Yusuf M.D. 06/10/2025 6:38 PM Dictation Location: [place] [address] Electronically authenticated by: [id number] Y Date: 06/10/2025 18:38 Dictated By: Roddy Yusuf M.D. Signed By: 06/10/251840 DD/ 37 TD/TT: Chief Mechanical Officer: [facility] Radiology, Radiologi MD ember - 06/10/2025 [place] [address] Ultrasound Report Signed Patient: ANGELA REYES MR#: [id number] : 1990 Acct:[id number] Age/Sex: 35 / F ADM Date: 06/10/25 Loc: US Attending Dr: Ángel Buckner D.O. Ordering Physician: Ángel Buckner D.O. Date of Service: 06/10/25 Procedure(s): US OB BPP w non-stress Accession Number(s): [id number] cc: Robles Charles D.O.; Ángel Buckner D.O. The [place] [id number] Patient Name: ANGELA REYES MRN: [facility]:[id number] date: 1990 Sex: F Assigned Patient Location: [facility] Current Patient Location: Accession/Order Number: [id number] Exam Date: 06/10/2025 18:36 Report Date: 06/10/2025 18:38 At the request of: ÁNGEL SITA DO Procedure: US OB BPP w non-stress [...] Yusuf M.D. 06/10/2025 6:38 PM Dictation Location: [place] [address] Electronically authenticated by: [id number] Y Date: 06/10/2025 18:38 Dictated By: Roddy Yusuf M.D. Signed By: 06/10/25 184 DD/ 1838 TD/TT: Chief Mechanical Officer: [facility] [employer] Radiology Study observation (narrative) [facility] US OB BPP W NON-STRESS Ordered By: Radiologist Radiology on 06-10-2025 [facility] [employer] Work Phone: US OB BPP W NON-STRESS on 06-03-2025 [place] [address] Ultrasound Report Signed Patient: ANGELA REYES MR#: [id number] : 1990 Acct:[id number] Age/Sex: 35 / F ADM Date: 06/03/25 Loc: US Attending Dr: Ángel Buckner D.O. Ordering Physician: Ángel Buckner D.O. Date of Service: 06/03/25 Procedure(s): US OB BPP w non-stress Accession Number(s): [id number] cc: Robles Charles D.O.; Ángel Buckner D.O. [place] [id number] Patient Name: ANGELA REYES MRN: [facility]:[id number] date: 1990 Sex: F Assigned Patient Location: [facility] Current Patient Location: Accession/Order Number: [id number] Exam Date: 06/03/2025 14:22 Report Date: 06/03/2025 [...] Durand M.D. 06/03/2025 2:23 PM Dictation Location: [place] [address] Electronically authenticated by: [id number] Y Date: 06/03/2025 14:23 Dictated By: Aguilar Durand D.O. Signed By: 06/03/25 1425 DD/ 1423 TD/TT: Chief Mechanical Officer: [facility] Radiology, Radiologbrittanie pa MD - 06/03/2025 [place] [address] Ultrasound Report Signed Patient: ANGELA REYES MR#: [id number] : 1990 Acct:[id number] Age/Sex: 35 / F ADM Date: 06/03/25 Loc: US Attending Dr: Ángel Buckner D.O. Ordering Physician: Ángel Buckner D.O. Date of Service: 06/03/25 Procedure(s): US OB BPP w non-stress Accession Number(s): [id number] cc: Robles Charles D.O.; Ángel Buckner D.O. The [address] [address] Patient Name: ANGELA REYES MRN: [facility]:[id number] date: 1990 Sex: F Assigned Patient Location: [facility] Current Patient Location: Accession/Order Number: [id number] Exam Date: 06/03/2025 14:22 Report Date: 06/03/2025 [...] ultrasound biophysical profile Impression dictated by: Aguilar uDrand M.D. 06/03/2025 2:23 PM [facility] Electron[facility] authenticated by: [id number] Y Date: 06/03/2025 14:23 Dictated By: Aguilar Durand D.O. Signed By: 06/03/251424 DD/ 22 TD/TT: Chief Mechanical Officer: [facility] Radiology Study observation (narrative) [facility] US OB BPP W NON-STRESS Ordered By: Radiologist Radiology on 06-03-2025 [facility] Work Phone: Urinalysis macro (dipstick) panel (U)on 05-30-2025 Bilirubin, UA Negative Negative - 4(70) +++ mg/dL [facility] Blood, UA Negative Negative - 50 Ezequiel/mcL [facility] Clarity, UA Clear [facility] Color, UA Yellow [facility] Glucose, UA Negative Negative - 1999(110) ++++ mg/dL [facility] Interpretation and review of laboratory results Normal [facility] Ketones, UA Negative Negative - 160(16) ++++ mg/dL [facility] Leukocytes, UA Negative Negative - 500+++ Jason/mcL [facility] Nitrite, UA Negative Negative - Positive [facility] pH, UA 5.5 5 - 9 [facility] Protein, UA Negative Negative - 2000(20) ++++ mg/dL [facility] Spec Grav, UA 1.02 1 - 1.03 [facility] Urobilinogen, UA 1.0 0.2 - 12 mg/dL [facility] OB GROWTHon 05-11-2025 [place] [address] Ultrasound Report Signed Patient: ANGELA REYES MR#: [id number] : 1990 Acct:[id number] Age/Sex: 35 / F ADM Date: 05/11/25 Loc: US Attending Dr: Edson Dewitt Ordering Physician: Edson Dewitt Date of Service: 05/11/25 Procedure(s): US OB growth Accession Number(s): [id number] cc: Robles Charles D.O.; Edson Dewtit [place] [id number] Patient Name: ANGELA REYES MRN: [facility]:[id number] date: 1990 Sex: F Assigned Patient Location: US Current Patient Location: US Accession/Order Number: [id number] Exam Date: 05/11/2025 14:38 Report Date: 05/11/2025 [...] Jr., D.O. 05/11/2025 2:40 PM Dictation Location: [place] [address] Electronically authenticated by: [id number] Y Date: 05/11/2025 14:40 Dictated By: Justin Mack M.D. Signed By: 05/11/25 144 DD/ 39 TD/TT: Chief Mechanical Officer: [facility] Radiology, Radiologi MD ember - 05/11/2025 [place] [address] Ultrasound Report Signed Patient: ANGELA REYES MR#: [id number] : 1990 Acct:[id number] Age/Sex: 35 / F ADM Date: 05/11/25 Loc: US Attending Dr: Edson Dewitt Ordering Physician: Edson Dewitt Date of Service: 05/11/25 Procedure(s): US OB growth Accession Number(s): [id number] cc: Robles Charles D.O.; Edson Dewitt The [place] [address] Patient Name: ANGELA REYES MRN: [facility]:[id number] date: 1990 Sex: F Assigned Patient Location: US Current Patient Location: US Accession/Order Number: [id number] Exam Date: 05/11/2025 14:38 Report Date: 05/11/2025 [...] Jr., D.O. 05/11/2025 2:40 PM Dictation Location: [place] [address] Electronically authenticated by: [id number] Y Date: 05/11/2025 14:40 Dictated By: Justin Mack M.D. Signed By: 05/11/25 144 DD/ 39 TD/TT: Chief Mechanical Officer: [facility] Radiology Study observation (narrative) [facility] US OB GROWTHOrdered By: Reg ologist Radiology on 05-11-2025 [facility] Work Phone: ALL CBC WITH AUTO DIFFon BASOPHILS ABSOLUTE AUTO 0 N [facility] Basophils/100 WBC (Bld) 0.2 % 0.2 - 2.0 % [facility] Eosinophils/100 WBC (Bld) 1.2 % 0.9 - 7.0 % [facility] Erythrocyte distribution width (RBC) [Ratio] 13.2 % 11.0 - 15.0 % [facility] Hematocrit (Bld) [Volume fraction] 31.9 % Low 36.0 - 48.0 % [facility] Hemoglobin (Bld) [Mass/Vol] 10.6 g/dL Low 12.0 - 16.0 g/dL [facility] IMMATURE GRANULOCYTES ABS AUTO 0.06 High [facility] Immature granulocytes/100 WBC (Bld) 0.6 % High 0.0 - 0.5 % [facility] Interpretation and review of laboratory results Abnormal [facility] LYMPHOCYTES ABSOLUTE AUTO 1.6 [facility] Lymphocytes/100 WBC (Bld) 15.6 % Low 20.5 - 60.0 % [facility] MCH (RBC) [Entitic mass] 32.6 pg 26.7 - 34.0 pg [facility] MCHC (RBC) [Mass/Vol] 33.2 g/dL 29.9 - 35.2 g/dL [facility] MCV (RBC) [Entitic vol] 98.2 fL 81.0 - 99.0 fL [facility] MONOCYTES ABSOLUTE AUTO 0.6 N [facility] Monocytes/100 WBC (Bld) 6 % 1.7 - 12.0 % [facility] NEUTROPHILS ABSOLUTE AUTO 7.7 High [facility] Neutrophils/100 WBC (Bld) 76.4 % High 43.0 - 75.0 % [facility] Platelet mean volume (Bld) [Entitic vol] 9 fL Low 9.5 - 13.5 fL [facility] TBH EO # 0.1 [facility] TBH PLT 313 [facility] TBH RBC 3.25 Low [facility] TBH WBC 10.1 [facility] GLUCOSE 1 HOURon 04-18-2025 Glucose [Mass/Vol] 96 mg/dL NINF - 13 0 mg/dL [facility] No Panel Informationon 04-18 [facility] US OB LIMITED 1+ FETUSESon 0 [...] Negative Negative - 4(70) +++ mg/dL [facility] Blood, UA Negative Negative - 50 Ezequiel/mcL [facility] Clarity, UA Clear [facility] Color, UA Yellow [facility] Glucose, UA Negative Negative - 2000(110) ++++ mg/dL [facility] Interpretation and review of laboratory results Normal [facility] Ketones, UA Negative Negative - 160(16) ++++ mg/dL [facility] Leukocytes, UA Negative Negative - 500+++ Jason/mcL [facility] Nitrite, UA Negative Negative - Positive [facility] pH, UA 7 5 - 9 [facility] Protein, UA Negative Negative - 2000(20) ++++ mg/dL [facility] Spec Grav, UA 1.02 1 - 1.03 [facility] Urobilinogen, UA 0.2 0.2 - 12 mg/dL [facility] OB ANATOMYon 03-21-[address] [address] Ultrasound Report Signed Patient: ANGELA REYES MR#: [id number] : 1990 Acct:[id number] Age/Sex: 35 / F ADM Date: 03/20/25 Loc: US Attending Dr: Deisy Villar Ordering Physician: Deisy Villar Date of Service: 03/20/25 Procedure(s): US OB anatomy Accession Number(s): [id number] cc: Deisy Villar; Robles Charles D.O. [place] [address] Patient Name: ANGELA REYES MRN: [facility]:[id number] date: 1990 Sex: F Assigned Patient Location: US Current Patient Location: Accession/Order Number: [id number] Exam Date: 03/21/2025 13:12 Report Date: 03/21/2025 [...] Aguilar Durand M.D.03/21/2025 1:16 PM Dictation Location: [place] [address] Electronically authenticated by: [id number] Y Date: 03/21/2025 13:16 Dictated By: Aguilar Durand D.O. Signed By: 03/21/25 1319 DD/ 131 TD/TT: Chief Mechanical Officer: [facility] Radiology, Radiologbrittanie pa MD - 03/21/2025 [place] [address] Ultrasound Report Signed Patient: ANGELA REYES MR#: [id number] : 1990 Acct:[id number] Age/Sex: 35 / F ADM Date: 03/20/25 Loc: US Attending Dr: Deisy Villar Ordering Physician: Deisy Villar Date of Service: 03/20/25 Procedure(s): US OB anatomy Accession Number(s): [id number] cc: Deisy Villar; Robles Charles D.O. The [place] [phone] Patient Name: ANGELA REYES MRN: [facility]:[id number] date: 1990 Sex: F Assigned Patient Location: Current Patient Location: Accession/Order Number: [id number] Exam Date: 03/21/2025 13:12 Report Date: 03/21/2025 [...] Aguilar Durand M.D.03/21/2025 1:16 PM Dictation Location: [employer] Electronically authenticated by: [id number] Y Date: 03/21/2025 13:16 Dictated By: Aguilar Durand D.O. Signed By: 03/21/25 1319 DD/ 1316 TD/TT: Chief Mechanical Officer: [facility] Radiology Study observation (narrative) [facility] OB ANATOMYOrdered By: Chepe iologdarwin Radiology on 03-21-2025 [facility] Work Phone: US OB CERVICAL LENGTHon 03-01 [place] [address] Ultrasound Report Signed Patient: ANGELA REYES MR#: [id number] : 1990 Acct:[id number] Age/Sex: 35 / F ADM Date: 03/20/25 Loc: US Attending Dr: Deisy Villar Ordering Physician: Deisy Villar Date of Service: 03/20/25 Procedure(s): US OB cervical length Accession Number(s): [id number] cc: Deisy Villar; Robles Charles D.O. [address] [address] Patient Name: ANGELA REYES MRN: [id number]:[id number] date: 1990 Sex: F Assigned Patient Location: US Current Patient Location: Accession/Order Number: [id number] Exam Date: 03/21/2025 09:18 Report Date: 03/21/2025 09:19 At the request of: DEISY VILLAR Procedure: US OB cervical length Ultrasound assessment of the cervical length The cervical length is 3.8 cm. The cervical os is closed. US/US OB cervical length IMPRESSION: #3.8 cm cervical length. Impression dictated by: Aguilar Durand M.D.03/21/2025 9:19 AM Dictation Location: [place] [address] Electronically authenticated by: [id number] Y Date: 03/21/2025 09:19 Dictated By: Aguilar Durand D.O. Signed By: 03/21/25921 DD/ 8 TD/TT: Chief Mechanical Officer: [facility] Radiology, Radiologi MD ember - 03/21/2025 [place] [address] Ultrasound Report Signed Patient: ANGELA REYES MR#: [id number] : 1990 Acct:[id number] Age/Sex: 35 / F ADM Date: 03/20/25 Loc: US Attending Dr: Deisy Villar Ordering Physician: Deisy Villar Date of Service: 03/20/25 Procedure(s): US OB cervical length Accession Number(s): [id number] cc: Deisy Villar; Robles Charles D.O. The [place] [phone] Patient Name: ANGELA REYES MRN: [facility]:[id number] date: 1990 Sex: F Assigned Patient Location: US Current Patient Location: Accession/Order Number: [id number] Exam Date: 03/21/2025 09:18 Report Date: 03/21/2025 09:19 At the request of: DEISY VILLAR Procedure: US OB cervical length Ultrasound assessment of the cervical length The cervical length is 3.8 cm. The cervical os is closed. US/US OB cervical length IMPRESSION: #3.8 cm cervical length. Impression dictated by: Aguilar Durand M.D.03/21/2025 9:19 AM Dictation Location: [place] [address] Electronically authenticated by: [id number] Y Date: 03/21/2025 09:19 Dictated By: Aguilar Durand D.O. Signed By: 03/21/25921 DD/ 8 TD/TT: Chief Mechanical Officer: [facility] Radiology Study observation (narrative) [facility] US OB CERVICAL LENGTHOrdered By: Radiologist Radiology on 03-21-2025 [facility] Work Phone: IGP,APTIMA HPV,AGE GDLNon AGE GDLN ACOG TESTING Note . [facility] Comment on above: TESTS RESULT FLAG U NITS REF RANGE LAB Clinician Provided Cytology Information Source.............Cervix Other.............. No. of containers..01 ThinPrep Vial Age Algo ACOG Lara... 30-65 01 FLAG LEGEND: L-Low Normal,H-High Normal,LL-Alert Low,HH-Alert High <-Panic Low,>-Panic High,A-Abnormal,AA-Critical Abnormal Performed at: 01 =G [facility] [address] Ilana Heath MD, HPV APTIMA Negative Negative [facility] Comment on above: This nucleic acid am plification test detects fourteen high- risk HPV types (16,18,31,33,35,39,45,51,52,56,58,59,66,68) without differentiation. Performed at: = - [address] [id number] [place]: Ilana Heath MD, Phone: [phone] Performed at: [address] [id number] [place]: Ilana Heath MD, Phone: [phone] IGP, APTIMA HPV, RFX 16/18,45 Note . [facility] Comment on above: TESTS RESULT FLAG UN ITS REF RANGE LAB DIAGNOSIS: 02 NEGATIVE FOR INTRAEPITHELIAL LESION OR MALIGNANCY. THIS SPECIMEN WAS RESCREENED PART OF OUR APARTMENT COMMUNITY ASSISTANT MANAGER PROGRAM. Specimen adequacy: 02 Satisfactory for evaluation. No endocervical component is identified. Performed by: 03 Eugenia Kenndey, Interrelated Special Education Teacher [facility] QC reviewed by: 02 Meredith Chávez, Boom Operator . 02 Note: Note 02 The [...] Abnormal Performed at: 02 WB [facility] [address] [address] Ilana Heath MD, 03 KWCYT [facility] [place] [facility] [address] [place] [phone] Lloyd Kim MD, SPATULA-ALONE CERVIX [facility] RECURRENT VAGINITIS (HTRX)on 03-03-2025 ATOPOBIUM VAGINAE 0 [facility] ATOPOBIUM VAGINAE Not detected [facility] BVAB 2,3 (BACTERIAL VAGINOSIS ASSOCIATED BACTERIA 2, 3); MOBILUNCUS SPP 0 [facility] BVAB 2,3 (BACTERIAL VAGINOSIS ASSOCIATED BACTERIA 2, 3); MOBILUNCUS SPP Not detected [facility] ANEUDY ALBICANS, PARAPSILOSIS, TROPICALIS 0 [facility] ANEUDY ALBICANS, PARAPSILOSIS, TROPICALIS Not detected [facility] ANEUDY GLABRATA 0 [facility] ANEUDY GLABRATA Not detected [facility] Healthcare ANEUDY KRUSEI 0 [facility] ANEUDY KRUSEI Not detected [facility] Healthcare CHLAMYDIA TRACHOMATIS 0 [facility] CHLAMYDIA TRACHOMATIS Not detected N S Healthcare GARDNERELLA VAGINALIS 0 [facility] S [facility] GARDNERELLA VAGINALIS Not detected N [facility] MEGASPHAERA (TYPES 1, 2) 0 [facility] MEGASPHAERA (TYPES 1, 2) Not detected [facility] MYCOPLASMA GENITALIUM 0 [facility] S [facility] MYCOPLASMA GENITALIUM Not detected N S [facility] NEISSERIA GONORRHOEAE 0 [facility] S [facility] NEISSERIA GONORRHOEAE Not detected N S [facility] TRICHOMONAS VAGINALIS 0 [facility] S [facility] TRICHOMONAS VAGINALIS Not detected N [facility] Healthcare [facility] Healthcare Urinalysis macro (dipstick) panel (U)on 03-02-2025 Bilirubin, UA Negative Negative - 4(70) +++ mg/dL [facility] Blood, UA Negative Negative - 50 Ezequiel/mcL [facility] Clarity, UA Clear [facility] Color, UA Yellow [facility] Glucose, UA Negative Negative - 2000(110) ++++ mg/dL [facility] Interpretation and review of laboratory results Normal [facility] Ketones, UA Negative Negative - 160(16) ++++ mg/dL [facility] Leukocytes, UA Negative Negative - 500+++ Jason/mcL [facility] Nitrite, UA Negative Negative - Positive [facility] pH, UA 7 5 - 9 [facility] Protein, UA Negative Negative - 1999(20) ++++ mg/dL [facility] Spec Grav, UA 1.02 1 - 1.03 [facility] Urobilinogen, UA 0.2 0.2 - 12 mg/dL [facility] Urinalysis macro (dipstick) panel (U)on 02-02-2025 Bilirubin, UA Negative Negative - 4(70) +++ mg/dL [facility] Blood, UA Negative Negative - 50 Ezequiel/mcL [facility] Clarity, UA Clear [facility] Color, UA Yellow [facility] Glucose, UA Negative Negative - 1999(110) ++++ mg/dL [facility] Interpretation and review of laboratory results Abnormal [facility] Ketones, UA Negative Negative - 160(16) ++++ mg/dL [facility] Leukocytes, UA Trace Negative - 500+++ Jason/mcL [facility] Nitrite, UA Negative Negative - Positive [facility] pH, UA 6 5 - 9 [facility] Protein, UA Negative Negative - 1999(20) ++++ mg/dL [facility] Spec Grav, UA 1.025 1 - 1.03 [facility] Urobilinogen, UA 0.2 0.2 - 12 mg/dL [facility] ALL CBC WITH AUTO DIFFon BASOPHILS ABSOLUTE AUTO 0 N [facility] Basophils/100 WBC (Bld) 0.4 % 0.2 - 2.0 % [facility] Eosinophils/100 WBC (Bld) 2.2 % 0.9 - 7.0 % [facility] Erythrocyte distribution width (RBC) [Ratio] 12.5 % 11.0 - 15.0 % [facility] Hematocrit (Bld) [Volume fraction] 34 % Low 36.0 - 48.0 % [facility] Hemoglobin (Bld) [Mass/Vol] 11.7 g/dL Low 12.0 - 16.0 g/dL [facility] IMMATURE GRANULOCYTES ABS AUTO 0.03 [facility] Immature granulocytes/100 WBC (Bld) 0.4 % 0.0 - 0.5 % [facility] Interpretation and review of laboratory results Abnormal [facility] LYMPHOCYTES ABSOLUTE AUTO 1.6 [facility] Lymphocytes/100 WBC (Bld) 20.4 % Low 20.5 - 60.0 % [facility] MCH (RBC) [Entitic mass] 31.5 pg 26.7 - 34.0 pg [facility] MCHC (RBC) [Mass/Vol] 34.4 g/dL 29.9 - 35.2 g/dL [facility] MCV (RBC) [Entitic vol] 91.6 fL 81.0 - 99.0 fL [facility] MONOCYTES ABSOLUTE AUTO 0.6 N [facility] Monocytes/100 WBC (Bld) 7.2 % 1.7 - 12.0 % [facility] NEUTROPHILS ABSOLUTE AUTO 5.6 [facility] Neutrophils/100 WBC (Bld) 69.4 % 43.0 - 75.0 % [facility] Platelet mean volume (Bld) [Entitic vol] 9.6 fL 9.5 - 13.5 fL [facility] TBH EO # 0.2 [facility] TBH PLT 302 [facility] RBC 3.71 Low [facility] [facility] WBC 8 [facility] US OB TRANSVAGINALon 025 US OB TRANSVAGINAL [...] Comment: US OB TRANSVAGINAL No LMP recorded. [facility] PREG QUANT HCGon 025 HCG QUANTITATIVE [id number] mIU/mL [facility] Comment on above: 5-50 0.2-1 WEEK 50-500 1-2 WEEKS 100-5,000 2-3 WEEKS 500-10,000 3-4 WEEKS 1,000-50,000 4-5 WEEKS 10,000-100,000 5-6 WEEKS 15,000-200,000 6-8 WEEKS 10,000-100,000 2-3 MONTHS [facility] PREG QUANT HCGon 025 HCG QUANTITATIVE 14161 mIU/mL [facility] Comment on above: 5-50 0.2-1 WEEK 50-500 1-2 WEEKS 100-5,000 2-3 WEEKS 500-10,000 3-4 WEEKS 1,000-50,000 4-5 WEEKS 10,000-100,000 5-6 WEEKS 15,000-200,000 6-8 WEEKS 10,000-100,000 2-3 MONTHS [facility] Automated basophil %Ordered By: Delano Francis on 09-22-2024 Basophils/100 WBC (Bld) 0.6 % Normal . [facility] Comment on above: Performed By: #### D HEAS, LC T4, [id number], SEROTON, TEST F + T, T3R, THYGLOB AB, ESTRADIOL, TPO, SHBG, ESTRONE, INSULIN, PROG #### [facility] , #### T4F, TRISTEN, TSH3, A1C WTH eA, FILIBERTO, GLU, T3F #### [address] Automated basophil countOrde red By: Delano Francis on 09-22-2024 Basophils (Bld) [#/Vol] 0.0 10*3/uL Normal 0.0-0.2 [facility] Comment on above: Result Comment: PERF ORMED BY: [facility] [address] [facility] [place] [address] PATHOLOGIST [employer] JOSE GOEL M.D. Performed By: #### D HEAS, LC T4, [id number], SEROTON, TEST F + T, T3R, THYGLOB AB, ESTRADIOL, TPO, SHBG, ESTRONE, INSULIN, PROG #### [facility] , #### T4F, TRISTEN, TSH3, A1C WTH eA, FILIBERTO, GLU, T3F #### [facility] [address] [place] [address] Automated blood monocyte cou ntOrdered By: Delano Francsi on 09-22-2024 Monocytes (Bld) [#/Vol] 0.4 10*3/uL Normal 0.0-0.8 [facility] Comment on above: Performed By: #### D HEAS, LC T4, [id number], SEROTON, TEST F + T, T3R, THYGLOB AB, ESTRADIOL, TPO, SHBG, ESTRONE, INSULIN, PROG #### [facility] , #### T4F, TRISTEN, TSH3, A1C WTH eA, FILIBERTO, GLU, T3F #### [address] Automated eosinophil %Ordere d By: Delano Francis on 09-22-2024 Eosinophils/100 WBC (Bld) 1.7 % Normal . [facility] Comment on above: Performed By: #### D HEAS, LC T4, [id number], SEROTON, TEST F + T, T3R, THYGLOB AB, ESTRADIOL, TPO, SHBG, ESTRONE, INSULIN, PROG #### [facility] , #### T4F, TRISTEN, TSH3, A1C WTH eA, FILIBERTO, GLU, T3F #### [address] Automated eosinophil countOr dered By: Delano Francis on 09-22-2024 Eosinophils (Bld) [#/Vol] 0.1 10*3/uL Normal 0.0-0.45 [facility] Comment on above: Performed By: #### D HEAS, LC T4, [id number], SEROTON, TEST F + T, T3R, THYGLOB AB, ESTRADIOL, TPO, SHBG, ESTRONE, INSULIN, PROG #### [facility] , #### T4F, TRISTEN, TSH3, A1C WTH eA, FILIBERTO, GLU, T3F #### [address] Automated monocyte %Ordered By: Delano Francis on 09-22-2024 Monocytes/100 WBC (Bld) 8.7 % Normal . [facility] Comment on above: Performed By: #### D HEAS, LC T4, [id number], SEROTON, TEST F + T, T3R, THYGLOB AB, ESTRADIOL, TPO, SHBG, ESTRONE, INSULIN, PROG #### [facility] , #### T4F, TRISTEN, TSH3, A1C WTH eA, FILIBERTO, GLU, T3F #### [address] Automated neutrophil %Ordere d By: Delano Francis on 09-22-2024 Neutrophils/100 WBC (Bld) 63.7 % Normal . [facility] Comment on above: Performed By: #### D HEAS, LC T4, [id number], SEROTON, TEST F + T, T3R, THYGLOB AB, ESTRADIOL, TPO, SHBG, ESTRONE, INSULIN, PROG #### [facility] , #### T4F, TRISTEN, TSH3, A1C WTH eA, FILIBERTO, GLU, T3F #### [address] Basophils Auto (Bld) [#/Vol] Ordered By: Delano Francis on 10-24-2024 Basophils (Bld) [#/Vol] Automated basophil count 0.0-0.2 [facility] Basophils/100 WBC Auto (Bld) Ordered By: Delano Francis on 09-22-2024 Basophils/100 WBC (Bld) Automated basophil % . [facility] Calcium [Mass/volume] in Ser um or PlasmaOrdered By: Delano Francis on 09-22-2024 Calcium [Mass/Vol] 9.4 mg/dL Normal 8.6-10.3 [facility] Comment on above: Performed By: #### D VENITA, LC T4, [id number], SEROTON, TEST F + T, T3R, THYGLOB AB, ESTRADIOL, TPO, SHBG, ESTRONE, INSULIN, PROG #### [facility] , #### T4F, TRISTEN, TSH3, A1C WTH eA, FILIBERTO, GLU, T3F #### [facility] [address] Calcium [Mass/Vol] Calcium [Mass/volume ] in Serum or Plasma 8.6-10.3 [facility] Carbon dioxide, total [Moles /volume] in Serum or PlasmaOrdered By: Delano Francis on 09-22-2024 CO2 [Moles/Vol] 29.2 mmol/L Normal 21.0-31.0 [facility] Comment on above: Performed By: #### D VENITA, LC T4, [id number], SEROTON, TEST F + T, T3R, THYGLOB AB, ESTRADIOL, TPO, SHBG, ESTRONE, INSULIN, PROG #### [facility] , #### T4F, TRISTEN, TSH3, A1C WTH eA, FILIBERTO, GLU, T3F #### [facility] [address] [place] [address] [place] CO2 [Moles/Vol] Carbon dioxide, tota l [Moles/volume] in Serum or Plasma 21.0-31.0 [facility] Chloride [Moles/volume] in S stevo or PlasmaOrdered By: Delano Francis on 09-22-2024 Chloride [Moles/Vol] 105 mmol/L Normal 98-107 [facility] Comment on above: Performed By: #### D HEAS, LC T4, [id number], SEROTON, TEST F + T, T3R, THYGLOB AB, ESTRADIOL, TPO, SHBG, ESTRONE, INSULIN, PROG #### [facility] , #### T4F, TRISTEN, TSH3, A1C WTH eA, FILIBERTO, GLU, T3F #### [facility] [address] Chloride [Moles/Vol] Chloride [Moles/vol ume] in Serum or Plasma [id number] [facility] Cholesterol [Mass/volume] in Serum or PlasmaOrdered By: Delano Francis on 09-22-2024 Cholesterol [Mass/Vol] 217 mg/dL High 140-200 [facility] Comment on above: Chol less than 200 m g/dl low riskChol 201-239 mg/dl borderline riskChol 240 mg/dl and greater high risk Result Comment: Chol less than 200 mg/dl low risk Chol 201-239 mg/dl borderline risk Chol 240 mg/dl and greater high risk Performed By: #### D HEAS, LC T4, [id number], SEROTON, TEST F + T, T3R, THYGLOB AB, ESTRADIOL, TPO, SHBG, ESTRONE, INSULIN, PROG #### [facility] , #### T4F, TRISTEN, TSH3, A1C WTH eA, FILIBERTO, GLU, T3F #### [facility] [address] Cholesterol [Mass/Vol] Cholesterol [Mass/volume] in Serum or Plasma High 140-200 [facility] Comment on above: Chol less than 200 m g/dl low riskChol 201-239 mg/dl borderline riskChol 240 mg/dl and greater high risk Cholesterol in HDL [Mass/vol ume] in Serum or PlasmaOrdered By: Delano Francis on 09-22-2024 Cholesterol in HDL [Mass/Vol] Serum or plasma high density lipoprotein (HDL) cholesterol measurement [facility] Comment on above: HDL CHOL ATP-III CLA SSIFICATION Cardiovascular RiskHDL > or equal to 60 mg/dL LOWHDL < 40 mg/dL HIGH Cholesterol in LDL Calc [Mas s/Vol]Ordered By: Delano Francis on 09-22-2024 Cholesterol in LDL [Mass/Vol] 148 mg/dL High 0-100 [facility] Comment on above: LDL ATP III CLASSIFI CATIONLDL less than 100 mg/dL OptimalLDL 100-129 mg/dL Near or above optimalLDL 130-159 mg/dL Borderline highLDL 160-189 mg/dL HighLDL greater than 189 mg/dL Very high Cholesterol in LDL [Mass/Vol] Cholesterol in LDL [Mass/volume] in Serum or Plasma by calculation High 0-100 [facility] Comment on above: LDL ATP III CLASSIFI CATIONLDL less than 100 mg/dL OptimalLDL 100-129 mg/dL Near or above optimalLDL 130-159 mg/dL Borderline highLDL 160-189 mg/dL HighLDL greater than 189 mg/dL Very high Cholesterol in VLDL Calc [Ma ss/Vol]Ordered By: Delano Francis on 09-22-2024 Cholesterol in VLDL [Mass/Vol] 10 mg/dL [facility] Cholesterol in VLDL [Mass/Vol] Cholesterol in VLDL [Mass/volume] in Serum or Plasma by calculation [facility] Creatinine [Mass/volume] in Serum or PlasmaOrdered By: Delano Francis on 09-22-2024 Creatinine [Mass/Vol] 0.73 mg/dL Normal 0.60-1.20 [facility] Comment on above: Performed By: #### D HEAS, LC T4, [id number], SEROTON, TEST F + T, T3R, THYGLOB AB, ESTRADIOL, TPO, SHBG, ESTRONE, INSULIN, PROG #### [facility] , #### T4F, TRISTEN, TSH3, A1C WTH eA, FILIBERTO, GLU, T3F #### [facility] [address] Creatinine [Mass/Vol] Creatinine [Mass/v olume] in Serum or Plasma 0.60-1.20 [facility] Employee Basic Metabolic Olvera burbank 09-22-2024 GFR/1.73 sq M.predicted MDRD (S/P/Bld) [Vol rate/Area] mL/min/{1.73_m2} Normal [facility] Comment on above: Performed By: #### D HEAS, LC T4, [id number], SEROTON, TEST F + T, T3R, THYGLOB AB, ESTRADIOL, TPO, SHBG, ESTRONE, INSULIN, PROG #### [facility] , #### T4F, TRISTEN, TSH3, A1C WTH eA, FILIBERTO, GLU, T3F #### [address] Employee Complete Blood Coun ton 09-22-2024 Mean Corpuscular HGB Conc 34.2 g/dL Normal 32.0-35.0 [facility] Comment on above: Performed By: #### D HEAS, LC T4, [id number], SEROTON, TEST F + T, T3R, THYGLOB AB, ESTRADIOL, TPO, SHBG, ESTRONE, INSULIN, PROG #### [facility] , #### T4F, TRISTEN, TSH3, A1C WTH eA, FILIBERTO, GLU, T3F #### [address] NRBC% 0.0 /100{WBC} Normal 0-0.5 [facility] Comment on above: Performed By: #### D HEAS, LC T4, [id number], SEROTON, TEST F + T, T3R, THYGLOB AB, ESTRADIOL, TPO, SHBG, ESTRONE, INSULIN, PROG #### [facility] , #### T4F, TRISTEN, TSH3, A1C WTH eA, FILIBERTO, GLU, T3F #### [address] Employee Lipid Profileon LDL Cholesterol,Calculated 148 mg/dL High 0-100 [facility] Comment on above: Result Comment: LDL ATP III CLASSIFICATION LDL less than 100 mg/dL Optimal LDL 100-129 mg/dL Near or above optimal LDL 130-159 mg/dL Borderline high LDL 160-189 mg/dL High LDL greater than 189 mg/dL Very high Performed By: #### D HEAS, LC T4, [id number], SEROTON, TEST F + T, T3R, THYGLOB AB, ESTRADIOL, TPO, SHBG, ESTRONE, INSULIN, PROG #### [facility] , #### T4F, TRISTEN, TSH3, A1C WTH eA, FILIBERTO, GLU, T3F #### [address] Triglyceride w/Reflex 52 mg/dL Normal 0-149 [facility] Comment on above: Result Comment: TRIG ATP III CLASSIFICATION TRIG less than 150 mg/dL Normal TRIG 150-199 mg/dL Borderline high TRIG 200-500 mg/dL High TRIG greater than 500 mg/dL Very high Standard traceable to the Center for Disease Conrtrol and Prevention (CDC) test method. Performed By: #### D HEAS, LC T4, [id number], SEROTON, TEST F + T, T3R, THYGLOB AB, ESTRADIOL, TPO, SHBG, ESTRONE, INSULIN, PROG #### [facility] , #### T4F, TRISTEN, TSH3, A1C WTH eA, FILIBERTO, GLU, T3F #### [address] VLDL CHOLESTEROL 10 mg/dL Normal [facility] Comment on above: Performed By: #### D VENITA, LC T4, [id number], SEROTON, TEST F + T, T3R, THYGLOB AB, ESTRADIOL, TPO, SHBG, ESTRONE, INSULIN, PROG #### [facility] , #### T4F, TRISTEN, TSH3, A1C WTH eA, FILIBERTO, GLU, T3F #### [address] Employee Thyroid Stim Hormon lonnie 09-22-2024 Employee Thyroid Stim Hormone 2.30 u[iU]/mL Normal 0.45-5.33 [facility] Comment on above: Result Comment: PERF ORMED BY: [place] [address] PATHOLOGIST [employer] HEL[employer] JOSE GOEL M.D. Performed By: #### D HEAS, LC T4, [id number], SEROTON, TEST F + T, T3R, THYGLOB AB, ESTRADIOL, TPO, SHBG, ESTRONE, INSULIN, PROG #### [facility] , #### T4F, TRISTEN, TSH3, A1C WTH eA, FILIBERTO, GLU, T3F #### [facility] [address] Eosinophils Auto (Bld) [#/Vo l]Ordered By: Delano Francis on 09-22-2024 Eosinophils (Bld) [#/Vol] Automated eosinophil count 0.0-0.45 [facility] Eosinophils/100 WBC Auto (Bl d)Ordered By: Delano Francis on 09-22-2024 Eosinophils/100 WBC (Bld) Automated eosinophil % . [facility] Erythrocyte distribution wid th Auto (RBC) [Ratio]Ordered By: Delano Francis on 09-22-2024 Erythrocyte distribution width (RBC) [Ratio] Erythrocyte distribution width [Ratio] by Automated count 11.9-15.3 [facility] Erythrocyte distribution wid th [Ratio] by Automated countOrdered By: Delano Francis on 09-22-2024 Erythrocyte distribution width (RBC) [Ratio] 13.2 % Normal 11.9-15.3 [facility] Comment on above: Performed By: #### D HEAS, LC T4, [id number], SEROTON, TEST F + T, T3R, THYGLOB AB, ESTRADIOL, TPO, SHBG, ESTRONE, INSULIN, PROG #### [facility] , #### T4F, TRISTEN, TSH3, A1C WTH eA, FILIBERTO, GLU, T3F #### [facility] [address] Erythrocytes [#/volume] in B lood by Automated countOrdered By: Delano Francis on 09-22-2024 RBC (Bld) [#/Vol] 3.91 10*6/uL Normal 3.60-5.00 [facility] Comment on above: Performed By: #### D HEAS, LC T4, [id number], SEROTON, TEST F + T, T3R, THYGLOB AB, ESTRADIOL, TPO, SHBG, ESTRONE, INSULIN, PROG #### [facility] , #### T4F, TRISTEN, TSH3, A1C WTH eA, FILIBERTO, GLU, T3F #### [facility] [address] [place] [address] [place] Glucose [Mass/volume] in Ser um or PlasmaOrdered By: Delano Francis on 09-22-2024 Glucose [Mass/Vol] 83 mg/dL Normal 70-100 [facility] Comment on above: Performed By: #### D HEAS, LC T4, [id number], SEROTON, TEST F + T, T3R, THYGLOB AB, ESTRADIOL, TPO, SHBG, ESTRONE, INSULIN, PROG #### [facility] , #### T4F, TRISTEN, TSH3, A1C WTH eA, FILIBERTO, GLU, T3F #### [facility] [address] [place] [address] [place] Glucose [Mass/Vol] Glucose [Mass/volume ] in Serum or Plasma 70-100 [facility] Hematocrit Auto (Bld) [Volum e fraction]Ordered By: Delano Francis on 09-22-2024 Hematocrit (Bld) [Volume fraction] Hematocrit [Volume Fraction] of Blood by Automated count 34.0-46.4 [facility] Hematocrit [Volume Fraction] of Blood by Automated countOrdered By: Delano Francis on 09-22-2024 Hematocrit (Bld) [Volume fraction] 35.9 % Normal 34.0-46.4 [facility] Comment on above: Performed By: #### D DANIELLEAS, LC T4, [id number], SEROTON, TEST F + T, T3R, THYGLOB AB, ESTRADIOL, TPO, SHBG, ESTRONE, INSULIN, PROG #### [facility] , #### T4F, TRISTEN, TSH3, A1C WTH eA, FILIBERTO, GLU, T3F #### [facility] [address] [place] [address] [place] Hemoglobin [Mass/volume] in BloodOrdered By: Delano Francis on 09-22-2024 Hemoglobin (Bld) [Mass/Vol] 12.3 g/dL Normal 11.8-15.4 [facility] Comment on above: Performed By: #### D HEAS, LC T4, [id number], SEROTON, TEST F + T, T3R, THYGLOB AB, ESTRADIOL, TPO, SHBG, ESTRONE, INSULIN, PROG #### [facility] , #### T4F, TRISTEN, TSH3, A1C WTH eA, FILIBERTO, GLU, T3F #### [facility] [address] Hemoglobin (Bld) [Mass/Vol] Hemoglobin [Mass/volume] in Blood 11.8-15.4 [facility] Leukocytes [#/volume] correc calvin for nucleated erythrocytes in Blood by Automated counOrdered By: Delano Francis on 09-22-2024 WBC corrected for nucl RBC Auto (Bld) [#/Vol] 5.1 10*3/uL 3.8-11.6 [facility] WBC corrected for nucl RBC Auto (Bld) [#/Vol] Leukocytes [#/volume] corrected for nucleated erythrocytes in Blood by Automated coun 3.8-11.6 [facility] Leukocytes [#/volume] in Blo od by Automated countOrdered By: Delano Francis on 09-22-2024 WBC (Bld) [#/Vol] 5.1 10*3/uL Normal 3.8-11.6 [facility] Comment on above: Performed By: #### D DANIELLEAS, LC T4, [id number], SEROTON, TEST F + T, T3R, THYGLOB AB, ESTRADIOL, TPO, SHBG, ESTRONE, INSULIN, PROG #### [facility] , #### T4F, TRISTEN, TSH3, A1C WTH eA, FILIBERTO, GLU, T3F #### [facility] [address] [place] [address] [place] Lymphocytes Auto (Bld) [#/Vo l]Ordered By: Delano Francis on 09-22-2024 Lymphocytes (Bld) [#/Vol] Lymphocytes [#/volume] in Blood by Automated count 1.00-4.8 [facility] Lymphocytes [#/volume] in Bl ood by Automated countOrdered By: Delano Francis on 09-22-2024 Lymphocytes (Bld) [#/Vol] 1.3 10*3/uL Normal 1.00-4.8 [facility] Comment on above: Performed By: #### D HEAS, LC T4, [id number], SEROTON, TEST F + T, T3R, THYGLOB AB, ESTRADIOL, TPO, SHBG, ESTRONE, INSULIN, PROG #### [facility] , #### T4F, TRISTEN, TSH3, A1C WTH eA, FILIBERTO, GLU, T3F #### [facility] [address] [place] [address] [place] Lymphocytes/100 WBC Auto (Bl d)Ordered By: Delano Francis on 09-22-2024 Lymphocytes/100 WBC (Bld) Lymphocytes/100 leukocytes in Blood by Automated count . [facility] Lymphocytes/100 leukocytes i n Blood by Automated countOrdered By: Delano Francis on 09-22-2024 Lymphocytes/100 WBC (Bld) 25.3 % Normal . [facility] Comment on above: Performed By: #### D HEAS, LC T4, [id number], SEROTON, TEST F + T, T3R, THYGLOB AB, ESTRADIOL, TPO, SHBG, ESTRONE, INSULIN, PROG #### [facility] , #### T4F, TRISTEN, TSH3, A1C WTH eA, FILIBERTO, GLU, T3F #### [facility] [address] MCH Auto (RBC) [Entitic mass ]Ordered By: Delano Francis on 09-22-2024 MCH (RBC) [Entitic mass] MCH [Entitic mass] by Automated count 24.7-34.3 [facility] MCH [Entitic mass] by Automa calvin countOrdered By: Delano Francis on 09-22-2024 MCH (RBC) [Entitic mass] 31.4 pg Normal 24.7-34.3 [facility] Comment on above: Performed By: #### D HEAS, LC T4, [id number], SEROTON, TEST F + T, T3R, THYGLOB AB, ESTRADIOL, TPO, SHBG, ESTRONE, INSULIN, PROG #### [facility] , #### T4F, TRISTEN, TSH3, A1C WTH eA, FILIBERTO, GLU, T3F #### [facility] [address] [place] [address] MCHC Auto (RBC) [Mass/Vol]Or dered By: Delano Francis on 09-22-2024 MCHC (RBC) [Mass/Vol] 34.2 g/dL 32.0-35.0 [facility] MCHC (RBC) [Mass/Vol] MCHC [Mass/volume] by Automated count 32.0-35.0 [facility] MCV Auto (RBC) [Entitic vol] Ordered By: Delano Francis on 09-22-2024 MCV (RBC) [Entitic vol] MCV [Entitic vol ume] by Automated count 80-100 [facility] MCV [Entitic volume] by Auto mated countOrdered By: Delano Francis on 09-22-2024 MCV (RBC) [Entitic vol] 91.7 fL Normal 80-100 [facility] Comment on above: Performed By: #### D VENITA, LC T4, [id number], SEROTON, TEST F + T, T3R, THYGLOB AB, ESTRADIOL, TPO, SHBG, ESTRONE, INSULIN, PROG #### [facility] , #### T4F, TRISTEN, TSH3, A1C WTH eA, FILIBERTO, GLU, T3F #### [facility] [address] [place] [address] Monocytes Auto (Bld) [#/Vol] Ordered By: Delano Francis on 09-22-2024 Monocytes (Bld) [#/Vol] Automated blood monocyte count 0.0-0.8 [facility] Monocytes/100 WBC Auto (Bld) Ordered By: Delano Francis on 09-22-2024 Monocytes/100 WBC (Bld) Automated monocyte % . [facility] Neutrophils Auto (Bld) [#/Vo l]Ordered By: Delano Francis on 09-22-2024 Neutrophils (Bld) [#/Vol] Neutrophils [#/volume] in Blood by Automated count 1.8-7.7 [facility] Neutrophils [#/volume] in Bl ood by Automated countOrdered By: Delano Francis on 09-22-2024 Neutrophils (Bld) [#/Vol] 3.2 10*3/uL Normal 1.8-7.7 [facility] Comment on above: Performed By: #### D JOSSE NATHAN T4, [id number], SEROTON, TEST F + T, T3R, THYGLOB AB, ESTRADIOL, TPO, SHBG, ESTRONE, INSULIN, PROG #### [facility] , #### T4F, TRISTEN, TSH3, A1C WTH eA, FILIBERTO, GLU, T3F #### [facility] [address] Neutrophils/100 WBC Auto (Bl d)Ordered By: Delano Francis on 09-22-2024 Neutrophils/100 WBC (Bld) Automated neutrophil % . [facility] No Panel InformationOrdered By: Delano Francis on 09-22-2024 Estimated GFR (CKD-EPI) > 60.0 mL/Min [facility] Creatinine Clearance (Chem N/A [facility] Nucleated erythrocytes [Pres ence] in Blood by Automated countOrdered By: Delano Francis on 09-22-2024 Nucleated RBC Auto Ql (Bld) 0.0 /100{WBC} 0-0.5 [facility] Nucleated RBC Auto Ql (Bld) Nucleated erythrocytes [Presence] in Blood by Automated count 0-0.5 [facility] Platelet mean volume Auto (B ld) [Entitic vol]Ordered By: Delano Francis on 09-22-2024 Platelet mean volume (Bld) [Entitic vol] Platelet mean volume [Entitic volume] in Blood by Automated count 6.3-10.7 [facility] Platelet mean volume [Entiti c volume] in Blood by Automated countOrdered By: Delano Francis on 09-22-2024 Platelet mean volume (Bld) [Entitic vol] 7.3 fL Normal 6.3-10.7 [facility] Comment on above: Performed By: #### D HEAS, LC T4, [id number], SEROTON, TEST F + T, T3R, THYGLOB AB, ESTRADIOL, TPO, SHBG, ESTRONE, INSULIN, PROG #### [facility] , #### T4F, TRISTEN, TSH3, A1C WTH eA, FILIBERTO, GLU, T3F #### [facility] [address] [place] [address] [place] Platelets Auto (Bld) [#/Vol] Ordered By: Delano Francis on 09-22-2024 Platelets (Bld) [#/Vol] Platelets [#/vol ume] in Blood by Automated count 150-450 [facility] Platelets [#/volume] in Bloo d by Automated countOrdered By: Delano Francis on 09-22-2024 Platelets (Bld) [#/Vol] 328 10*3/uL Normal 150-450 [facility] Comment on above: Performed By: #### D HEAS, LC T4, [id number], SEROTON, TEST F + T, T3R, THYGLOB AB, ESTRADIOL, TPO, SHBG, ESTRONE, INSULIN, PROG #### [facility] , #### T4F, TRISTEN, TSH3, A1C WTH eA, FILIBERTO, GLU, T3F #### [facility] [address] [place] [address] [place] Potassium [Moles/volume] in Serum or PlasmaOrdered By: Delano Francis on 09-22-2024 Potassium [Moles/Vol] 4.5 mmol/L Normal 3.5-5.1 [facility] Comment on above: Performed By: #### D HEAS, LC T4, [id number], SEROTON, TEST F + T, T3R, THYGLOB AB, ESTRADIOL, TPO, SHBG, ESTRONE, INSULIN, PROG #### [facility] , #### T4F, TRISTEN, TSH3, A1C WTH eA, FILIBERTO, GLU, T3F #### [facility] [address] [place] [address] [place] Potassium [Moles/Vol] Potassium [Moles/v olume] in Serum or Plasma 3.5-5.1 [facility] RBC Auto (Bld) [#/Vol]Ordere d By: Delano Francis on 09-22-2024 RBC (Bld) [#/Vol] Erythrocytes [#/volu me] in Blood by Automated count 3.60-5.00 [facility] Serum or plasma anion gap de terminationOrdered By: Delano Francis on 09-22-2024 Anion gap [Moles/Vol] 8.3 mmol/L Normal 6.0-15.0 [facility] Comment on above: Performed By: #### D HEAS, LC T4, [id number], SEROTON, TEST F + T, T3R, THYGLOB AB, ESTRADIOL, TPO, SHBG, ESTRONE, INSULIN, PROG #### [facility] , #### T4F, TRISTEN, TSH3, A1C WTH eA, FILIBERTO, GLU, T3F #### [facility] [address] Anion gap [Moles/Vol] Serum or plasma an ion gap determination 6.0-15.0 [facility] Serum or plasma high density lipoprotein (HDL) cholesterol measurementOrdered By: Delano Francis on 09-22-2024 Cholesterol in HDL [Mass/Vol] 59 mg/dL Normal 23-92 [facility] Comment on above: HDL CHOL ATP-III CLA SSIFICATION Cardiovascular RiskHDL > or equal to 60 mg/dL LOWHDL < 40 mg/dL HIGH Result Comment: HDL CHOL ATP-III CLASSIFICATION Cardiovascular Risk HDL > or equal to 60 mg/dL LOW HDL < 40 mg/dL HIGH Performed By: #### D HEAS, LC T4, [id number], SEROTON, TEST F + T, T3R, THYGLOB AB, ESTRADIOL, TPO, SHBG, ESTRONE, INSULIN, PROG #### [facility] , #### T4F, TRISTEN, TSH3, A1C WTH eA, FILIBERTO, GLU, T3F #### [facility] [address] Serum or plasma total choles terol/high density lipoprotein (HDL) cholesterol mass ratOrdered By: Delano Francis on 09-22-2024 Cholesterol.total/Alivia sterol in HDL [Mass ratio] 3.7 {ratio} Normal <5.0 [facility] Comment on above: Performed By: #### D HEAS, LC T4, [id number], SEROTON, TEST F + T, T3R, THYGLOB AB, ESTRADIOL, TPO, SHBG, ESTRONE, INSULIN, PROG #### [facility] , #### T4F, TRISTEN, TSH3, A1C WTH eA, FILIBERTO, GLU, T3F #### [facility] [id number] [address] Cholesterol.total/Alivia sterol in HDL [Mass ratio] Serum or plasma total cholesterol/high density lipoprotein (HDL) cholesterol mass rat <5.0 [facility] Sodium [Moles/volume] in Ser um or PlasmaOrdered By: Delano Francis on 09-22-2024 Sodium [Moles/Vol] 138 mmol/L Normal 136-145 [facility] Comment on above: Performed By: #### D HEAS, LC T4, [id number], SEROTON, TEST F + T, T3R, THYGLOB AB, ESTRADIOL, TPO, SHBG, ESTRONE, INSULIN, PROG #### [facility] , #### T4F, TRISTEN, TSH3, A1C WTH eA, FILIBERTO, GLU, T3F #### [facility] [address] [id number] [place] Sodium [Moles/Vol] Sodium [Moles/volume ] in Serum or Plasma 136-145 [facility] Thyrotropin [Units/volume] i n Serum or PlasmaOrdered By: Delano Francis on 09-22-2024 TSH Qn 2.30 m[IU]/L 0.45-5.33 [facility] TSH Qn Thyrotropin [Units/volume] in Serum or Plasma 0.45-5.33 [facility] Triglyceride [Mass/volume] i n Serum or PlasmaOrdered By: Delano Francis on 09-22-2024 Triglyceride [Mass/Vol] 52 mg/dL 0-149 [facility] Comment on above: TRIG ATP III CLASSIF ICATIONTRIG less than 150 mg/dL NormalTRIG 150-199 mg/dL Borderline highTRIG 200-500 mg/dL High TRIG greater than 500 mg/dL Very highStandard traceable to the Center for Disease Conrtrol and Prevention (CDC) test method. Triglyceride [Mass/Vol] Triglyceride [Mass/volume] in Serum or Plasma 0-149 [facility] Comment on above: TRIG ATP III CLASSIF ICATIONTRIG less than 150 mg/dL NormalTRIG 150-199 mg/dL Borderline highTRIG 200-500 mg/dL High TRIG greater than 500 mg/dL Very highStandard traceable to the Center for Disease Conrtrol and Prevention (CDC) test method. Urea nitrogen [Mass/volume] in Serum or PlasmaOrdered By: Delano Francis on 09-22-2024 Urea nitrogen [Mass/Vol] 9 mg/dL Normal 06-23 [facility] Comment on above: Performed By: #### D HEAS, LC T4, [id number], SEROTON, TEST F + T, T3R, THYGLOB AB, ESTRADIOL, TPO, SHBG, ESTRONE, INSULIN, PROG #### [facility] , #### T4F, TRISTEN, TSH3, A1C WTH eA, FILIBERTO, GLU, T3F #### [facility] [address] Urea nitrogen [Mass/Vol] Urea nitrogen [Mass/volume] in Serum or Plasma 06-23 [facility] WBC Auto (Bld) [#/Vol]Ordere d By: Delano Francis on 09-22-2024 WBC (Bld) [#/Vol] Leukocytes [#/volume ] in Blood by Automated count 3.8-11.6 [facility] IGP,APTIMA HPV,AGE GDLNon AGE GDLN ACOG TESTING Note . [facility] Comment on above: TESTS RESULT FLAG U NITS REF RANGE LAB Clinician Provided Cytology Information Source.............Cervix;Endocervix No. of containers..01 ThinPrep Vial Age Radha SPRINGER Lara... 3065 FLAG LEGEND: L-Low Normal,H-High Normal,LL-Alert Low,HH-Alert High <-Panic Low,>-Panic High,A-Abnormal,AA-Critical Abnormal Performed at: 01 =[address] [address] Ilana Heath MD, HPV APTIMA Negative Negative [facility] Comment on above: This nucleic acid am plification test detects fourteen high- risk HPV types (16,18,31,33,35,39,45,51,52,56,58,59,66,68) without differentiation. Performed at: =[address] [id number] Splitter Head: Ilana Heath MD, Phone: [phone] Performed at: [address] [id number] Splitter Head: Ilana Heath MD, Phone: [phone] IGP, APTIMA HPV, RFX 16/18,45 Note . [facility] Comment on above: TESTS RESULT FLAG UN ITS REF RANGE LAB DIAGNOSIS: 02 NEGATIVE FOR INTRAEPITHELIAL LESION OR MALIGNANCY. Specimen adequacy: 02 Satisfactory for evaluation. No endocervical component is identified. Performed by: 02 Chema Camargo, Boom Operator (ASCP) . 02 Note: Note 02 [...] Low,>-Panic High,A-Abnormal,AA-Critical Abnormal Performed at: [address] [facility] [address] [address] Ilana Heath MD, BRUSH-SPATULA CERVIX ENDOCERVIX [facility] 1,25 Dihydroxy Vit D Calcitr olon 01-07-2024 1,25 Dihydroxy Vit D Calcitrol 56.6 pg/mL Normal 24.8-81.5 [facility] Comment on above: Result Comment: Perf ormed at: BN - [facility] [address] [id number] Splitter Head: Quinton Wolf MD, Phone: [phone] Performed By: #### D JOSSE NATHAN T4, [id number], SEROTON, TEST F + T, T3R, THYGLOB AB, ESTRADIOL, TPO, SHBG, ESTRONE, INSULIN, PROG #### [facility] , #### T4F, TRISTEN, TSH3, A1C WTH eA, FILIBERTO, GLU, T3F #### [facility] [address] A1C with Estimated Average G luon 01-07-2024 Glucose [Mass/Vol] 105 mg/dL Normal [facility] Comment on above: Result Comment: PERF ORMED BY: [place] [address] PATHOLOGIST DUCT LAYER HELPER JOSE GOEL M.D. Performed By: #### D HEAS, LC T4, [id number], SEROTON, TEST F + T, T3R, THYGLOB AB, ESTRADIOL, TPO, SHBG, ESTRONE, INSULIN, PROG #### [facility] , #### T4F, TRISTEN, TSH3, A1C WTH eA, FILIBERTO, GLU, T3F #### [address] Antithyroglobulin Abon 01-07 Antithyroglobulin Ab <1.0 Normal 0.0-0.9 [facility] Comment on above: Result Comment: Thyr oglobulin Antibody measured by [employer] Methodology Performed at: - [address] [id number] Splitter Head: Baudilio Leyva PhD, Phone: [phone] Performed By: #### D HEAS, LC T4, [id number], SEROTON, TEST F + T, T3R, THYGLOB AB, ESTRADIOL, TPO, SHBG, ESTRONE, INSULIN, PROG #### [facility] , #### T4F, TRISTEN, TSH3, A1C WTH eA, FILIBERTO, GLU, T3F #### [address] Cortisolon 01-07-2024 Cortisol 6.8 ug/dL Normal [facility] Comment on above: Result Comment: Refe rence range: AM 6 - 24 ug/dl PM <10 ug/dl [facility] assistant director of plant operations and method: HELGA UNICEL DXI, POLYCLONAL ANTIBODY CORTISOL ASSAY. PERFORMED BY: [address] [place] [address] PATHOLOGIST DUCT LAYER HELPER JOSE GOEL M.D. Performed By: #### D HEAS, LC T4, [id number], SEROTON, TEST F + T, T3R, THYGLOB AB, ESTRADIOL, TPO, SHBG, ESTRONE, INSULIN, PROG #### [facility] , #### T4F, TRISTEN, TSH3, A1C WTH eA, FILIBERTO, GLU, T3F #### [facility] [address] Dehydroepiandrosterone Sulfa teOrdered By: Deisy Villar on 01-07-2024 Dehydroepiandrosterone Sulfate 174.0 ug/dL Normal 84.8-378.0 [facility] Comment on above: Performed By: #### Adria HEAS, LC T4, [id number], SEROTON, TEST F + T, T3R, THYGLOB AB, ESTRADIOL, TPO, SHBG, ESTRONE, INSULIN, PROG #### [facility] , #### T4F, TRISTEN, TSH3, A1C WTH eA, FILIBERTO, GLU, T3F #### [facility] [address] Estradiolon 01-07-2024 Estradiol 300.0 pg/mL Normal . [facility] Comment on above: Result Comment: Adul t Female Range Follicular phase 12.5 - 166.0 Ovulation phase 85.8 - 498.0 Luteal phase 43.8 - 211.0 Postmenopausal <6.0 - 54.7 1st trimester 215.0 - >4300.0 Elías ECLIA methodology Performed By: #### D HEAS, LC T4, [id number], SEROTON, TEST F + T, T3R, THYGLOB AB, ESTRADIOL, TPO, SHBG, ESTRONE, INSULIN, PROG #### [facility] , #### T4F, TRISTEN, TSH3, A1C WTH eA, FILIBERTO, GLU, T3F #### [facility] [address] [id number] [facility] Estrone, Serumon 01-07-2024 Estrone, Serum 46 pg/mL Normal 27-231 [facility] Comment on above: Result Comment: Joo hadley Adult (Premenopausal) 27 - 231 Menstrual Cycle (1-10 days) 19 - 149 Menstrual Cycle (11-20 days) 32 - 176 Menstrual Cycle (21-30 days) 37 - 200 Performed at: [address] [id number] Splitter Head: Quinton Wolf MD, Phone: [phone] Performed By: #### D VENITA, LC T4, [id number], SEROTON, TEST F + T, T3R, THYGLOB AB, ESTRADIOL, TPO, SHBG, ESTRONE, INSULIN, PROG #### [facility] , #### T4F, TRISTEN, TSH3, A1C WTH eA, FILIBERTO, GLU, T3F #### [facility] [address] [place] [address] [place] Ferritin [Mass/volume] in Se rum or PlasmaOrdered By: Deisy Villar on 01-07-2024 Ferritin [Mass/Vol] 44.8 ng/mL Normal 11.0-306.8 [facility] Comment on above: Performed By: #### D VENITA, LC T4, [id number], SEROTON, TEST F + T, T3R, THYGLOB AB, ESTRADIOL, TPO, SHBG, ESTRONE, INSULIN, PROG #### [facility] , #### T4F, TRISTEN, TSH3, A1C WTH eA, FILIBERTO, GLU, T3F #### [facility] [address] Free testosterone measuremen t by LC-MS/MSOrdered By: Deisy Villar on 01-07-2024 Testosterone Free [Mass/Vol] 0.3 pg/mL 0.0-4.2 [facility] Comment on above: Performed at: [facility] [address] [id number] Director: Baudilio Leyva PhD, Phone: [phone] at: [facility] [address] [id number] Director: Quinton Wolf MD, Phone: [phone] Glucose [Mass/volume] in Ser um or PlasmaOrdered By: Deisy Villar on 01-07-2024 Glucose [Mass/Vol] 84 mg/dL Normal 70-100 [facility] Comment on above: ADA recommended refe rence rangeRandom Glucose Reference Range is dependent on time and content of last meal. Glucose of more than 200 mg/dL in a nonstressed, ambulatory subject supports the diagnosis of Diabetes Mellitus. Result Comment: Calvin om Glucose Reference Range is dependent on time and content of last meal. Glucose of more than 200 mg/dL in a nonstressed, ambulatory subject supports the diagnosis of Diabetes Mellitus. ADA recommended reference range Performed By: #### D VENITA, JOSSE T4, [id number], SEROTON, TEST F + T, T3R, THYGLOB AB, ESTRADIOL, TPO, SHBG, ESTRONE, INSULIN, PROG #### [facility] , #### T4F, TRISTEN, TSH3, A1C WTH eA, FILIBERTO, GLU, T3F #### [address] Glucose mean value [Mass/vol ume] in Blood Estimated from glycated hemoglobinOrdered By: Deisy Villar on 01-07-2024 Average glucose Estimated from glycated hemoglobin (Bld) [Mass/Vol] 105 mg/dL [facility] Hemoglobin A1c percentageOrd ered By: Deisy Villar on 01-07-2024 HbA1c (Bld) [Mass fraction] 5.3 % Normal 4.3-5.6 [facility] Comment on above: Increased risk for d iabetes: 5.7 - 6.4diabetes: >6.4glycemic control for adults with diabetes: <7.0 Result Comment: Incr eased risk for diabetes: 5.7 - 6.4 diabetes: >6.4 glycemic control for adults with diabetes: <7.0 Performed By: #### D VENITA, LC T4, [id number], SEROTON, TEST F + T, T3R, THYGLOB AB, ESTRADIOL, TPO, SHBG, ESTRONE, INSULIN, PROG #### [facility] , #### T4F, TRISTEN, TSH3, A1C WTH eA, FILIBERTO, GLU, T3F #### [facility] [address] Insulinon 01-07-2024 Insulin 4.5 u[iU]/mL Normal 2.6-24.9 [facility] Comment on above: Result Comment: Perf ormed at: [address] [id number] Splitter Head: Baudilio Leyva PhD, Phone: [phone] Performed By: #### D HEAS, LC T4, [id number], SEROTON, TEST F + T, T3R, THYGLOB AB, ESTRADIOL, TPO, SHBG, ESTRONE, INSULIN, PROG #### [facility] , #### T4F, TRISTEN, TSH3, A1C WTH eA, FILIBERTO, GLU, T3F #### [address] [facility] Thyroxine (T4)on T4 [Mass/Vol] 8.2 ug/dL Normal 4.5-12.0 [facility] Comment on above: Performed By: #### D HEAS, LC T4, [id number], SEROTON, TEST F + T, T3R, THYGLOB AB, ESTRADIOL, TPO, SHBG, ESTRONE, INSULIN, PROG #### [facility] , #### T4F, TRISTEN, TSH3, A1C WTH eA, FILIBERTO, GLU, T3F #### [address] No Panel InformationOrdered By: Deisy Villar on 01-07-2024 Free Thyroxine (T4) Direct 8.2 ug/dL 4.5-12.0 [facility] Reverse Triiodothyronine (T3) 18.9 ng/dL 9.2-24.1 [facility] Comment on above: This test was develo ped and its performance characteristicsdetermined by [facility]. It has not been cleared orapproved by the Food and Drug Administration.Performed at: [address] [id number] Director: Quinton Wolf MD, Phone: [phone] Sex Hormone Binding Globulin 95.4 nmol/L 24.6-122.0 [facility] Comment on above: Performed at: [address] [id number] Director: Baudilio Leyva PhD, Phone: [phone] Plasma serotonin measurement (mass/volume)Ordered By: Deisy Villar on 01-07-2024 Serotonin (P) [Mass/Vol] 71 ng/mL [facility] Comment on above: This test was develo ped and its performance characteristicsdetermined by [facility]. It has not been cleared orapproved by the Food and Drug Administration.Performed at: [address] [id number] Director: Quinton Wolf MD, Phone: [phone] Progesteroneon 01-07-2024 Progesterone 0.2 ng/mL Normal . [facility] Comment on above: Result Comment: Foll icular phase 0.1 - 0.9 Luteal phase 1.8 - 23.9 Ovulation phase 0.1 - 12.0 First trimester 11.0 - 44.3 Second trimester 25.4 - 83.3 Third trimester 58.7 - 214.0 Postmenopausal 0.0 - 0.1 Performed By: #### D HEAS, LC T4, [id number], SEROTON, TEST F + T, T3R, THYGLOB AB, ESTRADIOL, TPO, SHBG, ESTRONE, INSULIN, PROG #### [facility] , #### T4F, TRISTEN, TSH3, A1C WTH eA, FILIBERTO, GLU, T3F #### [facility] [address] Random cortisol measurementO rdered By: Deisy Villar on 01-07-2024 Cortisol [Mass/Vol] 6.8 ug/dL [facility] Comment on above: [facility] assistant director of plant operations and method:HELGA UNICEL DXI, POLYCLONAL ANTIBODY CORTISOL ASSAY.Reference range: AM 6 - 24 ug/dl PM <10 ug/dl Serotonin, Serumon Serotonin, Serum 71 ng/mL Normal [facility] Comment on above: Result Comment: This test was developed and its performance characteristics determined by [facility]. It has not been cleared or approved by the Food and Drug Administration. Performed at: [facility] [address] [id number] Splitter Head: Quinton Wolf MD, Phone: [phone] PERFORMED BY: [place] [address] PATHOLOGIST DUCT LAYER HELPER JOSE GOEL M.D. Performed By: #### D HEAS, LC T4, [id number], SEROTON, TEST F + T, T3R, THYGLOB AB, ESTRADIOL, TPO, SHBG, ESTRONE, INSULIN, PROG #### [facility] , #### T4F, TRISTEN, TSH3, A1C WTH eA, FILIBERTO, GLU, T3F #### [address] Serum estrone measurementOrd ered By: Deisy Villar on 01-07-2024 E1 [Mass/Vol] 46 pg/mL 27-231 [facility] Comment on above: Range Adult (Premeno pausal) 27 - 231 Menstrual Cycle (1-10 days) 19 - 149 Menstrual Cycle (11-20 days) 32 - 176 Menstrual Cycle (21-30 days) 37 - 200Performed at: - [facility] [address] [id number] Director: Quinton Wolf MD, Phone: [phone] Serum or plasma calcitriol m easurement (mass/volume)Ordered By: Deisy Villar on 01-07-2024 1,25-dihydroxyvitamin D3 [Mass/Vol] 56.6 pg/mL 24.8-81.5 [facility] Comment on above: Performed at: - [facility] [address] [id number] Director: Quinton Wolf MD, Phone: [phone] Serum or plasma estradiol (E 2) measurement (mass/volume)Ordered By: Deisy Villar on 01-07-2024 E2 [Mass/Vol] 300.0 pg/mL . [facility] Comment on above: Adult Female Range F ollicular phase 12.5 - 166.0 Ovulation phase 85.8 - 498.0 Luteal phase 43.8 - 211.0 Postmenopausal <6.0 - 54.7 1st trimester 215.0 - >4300.0Roche ECLIA methodology Serum or plasma insulin kevin urement (units/volume)Ordered By: Deisy Villar on 01-07-2024 Insulin Qn 4.5 u[iU]/mL 2.6-24.9 [facility] Comment on above: Performed at: [employer] [place] [address] [place] [id number] Director: Baudilio Leyva PhD, Phone: [phone] Serum or plasma progesterone measurement (mass/volume)Ordered By: Deisy Villar on 01-07-2024 Progesterone [Mass/Vol] 0.2 ng/mL . [facility] Comment on above: Follicular phase 0.1 - 0.9 Luteal phase 1.8 - 23.9 Ovulation phase 0.1 - 12.0 First trimester 11.0 - 44.3 Second trimester 25.4 - 83.3 Third trimester 58.7 - 214.0 Postmenopausal 0.0 - 0.1 Serum or plasma thyroglobuli n antibody assay (units/volume)Ordered By: Deisy Villar on 01-07-2024 Thyroglobulin Ab Qn [IU]/mL 0.0-0.9 [facility] Comment on above: Thyroglobulin Antibo dy measured by Helga CoulterMethodologyPerformed at: [facility] [address] [id number] Director: Baudilio Leyva PhD, Phone: [phone] Serum or plasma thyroperoxid ase antibody assay (units/volume)Ordered By: Deisy Villar on 01-07-2024 TPO Ab Qn [IU]/mL 0-34 [facility] Comment on above: Performed at: [employer] [place] [address] [place] [id number] Director: Baudilio Leyva PhD, Phone: [phone] Sex Hormone Binding Globulin on 01-07-2024 Sex Hormone Binding Globulin 95.4 Normal 24.6-122.0 [facility] Comment on above: Result Comment: Perf ormed at: [address] [id number] Splitter Head: Baudilio Leyva PhD, Phone: [phone] Performed By: #### D VENITA, LC T4, [id number], SEROTON, TEST F + T, T3R, THYGLOB AB, ESTRADIOL, TPO, SHBG, ESTRONE, INSULIN, PROG #### [facility] , #### T4F, TRISTEN, TSH3, A1C WTH eA, FILIBERTO, GLU, T3F #### [facility] [address] Testosterone Free and TotalO rdered By: Deisy Villar on 01-07-2024 Testosterone [Mass/Vol] 16 ng/dL Normal 8-60 [facility] Comment on above: Performed By: #### Adria NATHAN, LC T4, [id number], SEROTON, TEST F + T, T3R, THYGLOB AB, ESTRADIOL, TPO, SHBG, ESTRONE, INSULIN, PROG #### [facility] , #### T4F, TRISTEN, TSH3, A1C WTH eA, FILIBERTO, GLU, T3F #### [facility] [address] [place] [address] [place] Testosterone Free and Totalo n 01-07-2024 Testosterone,Free 0.3 pg/mL Normal 0.0-4.2 [facility] Comment on above: Result Comment: Perf ormed at: [address] [id number] Splitter Head: Baudilio Leyva PhD, Phone: [phone] Performed at: [address] [id number] Splitter Head: Quinton Wolf MD, Phone: [phone] Performed By: #### D VENITA, LC T4, [id number], SEROTON, TEST F + T, T3R, THYGLOB AB, ESTRADIOL, TPO, SHBG, ESTRONE, INSULIN, PROG #### [facility] , #### T4F, TRISTEN, TSH3, A1C WTH eA, FILIBERTO, GLU, T3F #### [address] Thyroid Peroxidase Antibodie son 01-07-2024 Thyroid Peroxidase Antibodies <9 Normal 0-34 [facility] Comment on above: Result Comment: Perf ormed at: - [facility] [address] [id number] Splitter Head: Baudilio Leyva PhD, Phone: [phone] Performed By: #### D HEAS, LC T4, [id number], SEROTON, TEST F + T, T3R, THYGLOB AB, ESTRADIOL, TPO, SHBG, ESTRONE, INSULIN, PROG #### [facility] , #### T4F, TRISTEN, TSH3, A1C WTH eA, FILIBERTO, GLU, T3F #### [address] Thyrotropin [Units/volume] i n Serum or PlasmaOrdered By: Deisy Villar on 01-07-2024 TSH Qn 1.80 m[IU]/L Normal 0.45-5.33 [facility] Comment on above: Performed By: #### D HEAS, LC T4, [id number], SEROTON, TEST F + T, T3R, THYGLOB AB, ESTRADIOL, TPO, SHBG, ESTRONE, INSULIN, PROG #### [facility] , #### T4F, TRISTEN, TSH3, A1C WT eA, FILIBERTO, GLU, T3F #### [facility] [address] [place] [address] Thyroxine (T4) free [Mass/vo lume] in Serum or PlasmaOrdered By: Deisy Villar on 01-07-2024 Free T4 [Mass/Vol] 0.88 ng/dL Normal 0.61-1.12 [facility] Comment on above: Performed By: #### D HEAS, LC T4, [id number], SEROTON, TEST F + T, T3R, THYGLOB AB, ESTRADIOL, TPO, SHBG, ESTRONE, INSULIN, PROG #### [facility] , #### T4F, TRISTEN, TSH3, A1C WTH eA, FILIBERTO, GLU, T3F #### [facility] [address] [id number] [place] Triiodothyronine (T3) Freeon 01-07-2024 Triiodothyronine (T3) Free 3.90 pg/mL Normal 2.50-3.90 [facility] Comment on above: Result Comment: PERF ORMED BY: [place] [address] PATHOLOGIST DUCT LAYER HELPER JOSE GOEL M.D. Performed By: #### D DANIELLEAS, LC T4, [id number], SEROTON, TEST F + T, T3R, THYGLOB AB, ESTRADIOL, TPO, SHBG, ESTRONE, INSULIN, PROG #### [facility] , #### T4F, TRISTEN, TSH3, A1C WTH eA, FILIBERTO, GLU, T3F #### [place] [id number] [facility] Triiodothyronine (T3) Free [ Mass/volume] in Serum or PlasmaOrdered By: Deisy Villar on 01-07-2024 Free T3 [Mass/Vol] 3.90 pg/mL 2.50-3.90 [facility] Triiodothyronine (T3) Revers lonnie 01-07-2024 Triiodothyronine (T3) Reverse 18.9 ng/dL Normal 9.2-24.1 [facility] Comment on above: Result Comment: This test was developed and its performance characteristics determined by [facility]. It has not been cleared or approved by the Food and Drug Administration. Performed at: [address] [id number] Splitter Head: Quinton Wolf MD, Phone: [phone] Performed By: #### D HEAS, LC T4, [id number], SEROTON, TEST F + T, T3R, THYGLOB AB, ESTRADIOL, TPO, SHBG, ESTRONE, INSULIN, PROG #### [facility] , #### T4F, TRISTEN, TSH3, A1C WTH eA, FILIBERTO, GLU, T3F #### [facility] [address] [id number] [facility] Alanine aminotransferase [En zymatic activity/volume] in Serum or PlasmaOrdered By: Delano Francis on 09-17-2023 ALT [Catalytic activity/Vol] 20 U/L 7-52 [facility] Albumin [Mass/volume] in Ser um or Plasma by Bromocresol green (BCG) dye binding methoOrdered By: Delano Francis on 09-17-2023 Albumin BCG dye [Mass/Vol] 4.3 g/dL 3.5-5.7 [facility] Alkaline phosphatase [Enzyma tic activity/volume] in Serum or PlasmaOrdered By: Delano Francis on 09-17-2023 ALP [Catalytic activity/Vol] 62 U/L 34-104 [facility] Aspartate aminotransferase [ Enzymatic activity/volume] in Serum or PlasmaOrdered By: Delano Francis on 09-17-2023 AST [Catalytic activity/Vol] 22 U/L 13-39 [facility] Basophils Auto (Bld) [#/Vol] Ordered By: Delano Francis on 09-17-2023 Basophils (Bld) [#/Vol] 0.0 10*3/uL 0.0-0.2 [facility] Basophils/100 WBC Auto (Bld) Ordered By: Delano Francis on 09-17-2023 Basophils/100 WBC (Bld) 0.4 % . [facility] Bilirubin.total [Mass/volume ] in Serum or PlasmaOrdered By: Delano Francis on 09-17-2023 Bilirubin [Mass/Vol] 0.7 mg/dL 0.3-1.0 [facility] Calcium [Mass/volume] in Ser um or PlasmaOrdered By: Delano Francis on 09-17-2023 Calcium [Mass/Vol] 9.4 mg/dL 8.6-10.3 [facility] Carbon dioxide, total [Moles /volume] in Serum or PlasmaOrdered By: Delano Francis on 09-17-2023 CO2 [Moles/Vol] 26.2 mmol/L 21.0-31.0 [facility] Chloride [Moles/volume] in S stevo or PlasmaOrdered By: Delano Francis on 09-17-2023 Chloride [Moles/Vol] 102 mmol/L 98-107 [facility] Cholesterol [Mass/volume] in Serum or PlasmaOrdered By: Delano Francis on 09-17-2023 Cholesterol [Mass/Vol] 214 mg/dL 140-200 [facility] Comment on above: Chol less than 200 m g/dl low riskChol 201-239 mg/dl borderline riskChol 240 mg/dl and greater high risk Cholesterol in LDL Calc [Mas s/Vol]Ordered By: Delano Francis on 09-17-2023 Cholesterol in LDL [Mass/Vol] 161 mg/dL 0-100 [facility] Comment on above: LDL ATP III CLASSIFI CATIONLDL less than 100 mg/dL OptimalLDL 100-129 mg/dL Near or above optimalLDL 130-159 mg/dL Borderline highLDL 160-189 mg/dL HighLDL greater than 189 mg/dL Very high Cholesterol in VLDL Calc [Ma ss/Vol]Ordered By: Delano Francis on 09-17-2023 Cholesterol in VLDL [Mass/Vol] 9 mg/dL [facility] Creatinine [Mass/volume] in Serum or PlasmaOrdered By: Delano Francis on 09-17-2023 Creatinine [Mass/Vol] 0.79 mg/dL 0.60-1.20 [facility] Eosinophils Auto (Bld) [#/Vo l]Ordered By: Delano Francis on 09-17-2023 Eosinophils (Bld) [#/Vol] 0.1 10*3/uL 0.0-0.45 [facility] Eosinophils/100 WBC Auto (Bl d)Ordered By: Delano Francis on 09-17-2023 Eosinophils/100 WBC (Bld) 0.9 % . [facility] Erythrocyte distribution wid th Auto (RBC) [Ratio]Ordered By: Delano Francis on 09-17-2023 Erythrocyte distribution width (RBC) [Ratio] 12.4 % 11.9-15.3 [facility] Globulin Calc (S) [Mass/Vol] Ordered By: Delano Francis on 09-17-2023 Globulin (S) [Mass/Vol] 2.5 g/dL [facility] Glucose [Mass/volume] in Ser um or PlasmaOrdered By: Delano Francis on 09-17-2023 Glucose [Mass/Vol] 75 mg/dL 70-100 [facility] Hematocrit Auto (Bld) [Volum e fraction]Ordered By: Delano Francis on 09-17-2023 Hematocrit (Bld) [Volume fraction] 34.2 % 34.0-46.4 [facility] Hemoglobin [Mass/volume] in BloodOrdered By: Delano Francis on 09-17-2023 Hemoglobin (Bld) [Mass/Vol] 11.8 g/dL 11.8-15.4 [facility] Leukocytes [#/volume] correc calvin for nucleated erythrocytes in Blood by Automated counOrdered By: Delano Francis on 09-17-2023 WBC corrected for nucl RBC Auto (Bld) [#/Vol] 5.9 10*3/uL 3.8-11.6 [facility] Lymphocytes Auto (Bld) [#/Vo l]Ordered By: Delano Francis on 09-17-2023 Lymphocytes (Bld) [#/Vol] 1.8 10*3/uL 1.00-4.8 [facility] Lymphocytes/100 WBC Auto (Bl d)Ordered By: Delano Francis on 09-17-2023 Lymphocytes/100 WBC (Bld) 30.5 % . [facility] MCH Auto (RBC) [Entitic mass ]Ordered By: Delano Francis on 09-17-2023 MCH (RBC) [Entitic mass] 31.8 pg 24.7-34.3 [facility] MCHC Auto (RBC) [Mass/Vol]Or dered By: Delano Francis on 09-17-2023 MCHC (RBC) [Mass/Vol] 34.4 g/dL 32.0-35.0 [facility] MCV Auto (RBC) [Entitic vol] Ordered By: Delano Francis on 09-17-2023 MCV (RBC) [Entitic vol] 92.5 fL 80-100 [facility] Monocytes Auto (Bld) [#/Vol] Ordered By: Delano Francis on 09-17-2023 Monocytes (Bld) [#/Vol] 0.5 10*3/uL 0.0-0.8 [facility] Monocytes/100 WBC Auto (Bld) Ordered By: Delano Francis on 09-17-2023 Monocytes/100 WBC (Bld) 9.2 % . [facility] Neutrophils Auto (Bld) [#/Vo l]Ordered By: Delano Francis on 09-17-2023 Neutrophils (Bld) [#/Vol] 3.5 10*3/uL 1.8-7.7 [facility] Neutrophils/100 WBC Auto (Bl d)Ordered By: Delano Francis on 09-17-2023 Neutrophils/100 WBC (Bld) 59.0 % . [facility] No Panel InformationOrdered By: Delano Francis on 09-17-2023 Estimated GFR (CKD-EPI) > 60.0 mL/Min [facility] Creatinine Clearance (Chem N/A [facility] Nucleated erythrocytes [Pres ence] in Blood by Automated countOrdered By: Delano Francis on 09-17-2023 Nucleated RBC Auto Ql (Bld) 0.2 /100{WBC} 0-0.5 [facility] Platelet mean volume Auto (B ld) [Entitic vol]Ordered By: Delano Francis on 09-17-2023 Platelet mean volume (Bld) [Entitic vol] 8.1 fL 6.3-10.7 [facility] Platelets Auto (Bld) [#/Vol] Ordered By: Delano Francis on 09-17-2023 Platelets (Bld) [#/Vol] 250 10*3/uL 150-450 [facility] Potassium [Moles/volume] in Serum or PlasmaOrdered By: Delano Francis on 09-17-2023 Potassium [Moles/Vol] 4.0 mmol/L 3.5-5.1 [facility] Protein [Mass/volume] in Ser um or PlasmaOrdered By: Delano Francis on 09-17-2023 Protein [Mass/Vol] 6.8 g/dL 6.4-8.9 [facility] RBC Auto (Bld) [#/Vol]Ordere d By: Delano Francis on 09-17-2023 RBC (Bld) [#/Vol] 3.70 10*6/uL 3.60-5.00 [facility] Serum or plasma albumin/glob ulin mass ratioOrdered By: Delano Francis on 09-17-2023 Albumin/Globulin [Mass ratio] 1.7 {ratio} [facility] Serum or plasma anion gap de terminationOrdered By: Delano Francis on 09-17-2023 Anion gap [Moles/Vol] 10.8 mmol/L 6.0-15.0 [facility] Serum or plasma high density lipoprotein (HDL) cholesterol measurementOrdered By: Delano Francis on 09-17-2023 Cholesterol in HDL [Mass/Vol] 43 mg/dL 23- [facility] Comment on above: HDL CHOL ATP-III CLA SSIFICATION Cardiovascular RiskHDL > or equal to 60 mg/dL LOWHDL < 40 mg/dL HIGH Serum or plasma total choles terol/high density lipoprotein (HDL) cholesterol mass ratOrdered By: Delano Francis on 09-17-2023 Cholesterol.total/Alivia sterol in HDL [Mass ratio] 5.0 {ratio} <5.0 [facility] Sodium [Moles/volume] in Ser um or PlasmaOrdered By: Delano Francis on 09-17-2023 Sodium [Moles/Vol] 135 mmol/L 136-145 [facility] Thyrotropin [Units/volume] i n Serum or PlasmaOrdered By: Delano Francis on 09-17-2023 TSH Qn 1.04 m[IU]/L 0.45-5.33 [facility] Triglyceride [Mass/volume] i n Serum or PlasmaOrdered By: Delano Francis on 09-17-2023 Triglyceride [Mass/Vol] 48 mg/dL 0-149 [facility] Comment on above: TRIG ATP III CLASSIF ICATIONTRIG less than 150 mg/dL NormalTRIG 150-199 mg/dL Borderline highTRIG 200-500 mg/dL High TRIG greater than 500 mg/dL Very highStandard traceable to the Center for Disease Conrtrol and Prevention (CDC) test method. Urea nitrogen [Mass/volume] in Serum or PlasmaOrdered By: Delano Francis on 09-17-2023 Urea nitrogen [Mass/Vol] 7 mg/dL 7-25 [facility] WBC Auto (Bld) [#/Vol]Ordere d By: Delano Francis on 09-17-2023 WBC (Bld) [#/Vol] 5.9 10*3/uL 3.8-11.6 [facility] Mononucleosis Test, Qualon 1 Heterophile Ab LA Ql (S) Negative [employer] Other Quick Strep[facility] 09-26-2022 S. pyogenes Org specific cx Ql (Throat) Negative [employer] Other Quick Strep [employer] Other SARS-CoV-2 (COVID-19) RNA NA A+probe Ql (Resp)on 09-26-2022 SARS-CoV-2 (COVID-19) RNA ROB+probe Ql (Unsp spec) Negative [employer] Other PAP ACOG PANEL 2: 30 to 65on 09-01-2022 . . Normal [facility] Comment on above: Result Comment: Perf ormed at: WB Performed By: #### [id number] #### [facility] [address] [address] [address] Zonia Zhang Age Gdln ACOG Testing - Normal [facility] Comment on above: Performed By: #### [id number] #### [facility] [address] [address] [address] Zonia Zhang DIAGNOSIS: Comment Normal [facility] Comment on above: Result Comment: NEGA TIVE FOR INTRAEPITHELIAL LESION OR MALIGNANCY. Performed at: WB Performed By: #### [id number] #### [facility] [address] [address] [address] Zonia Zhang HPV Aptima Negative Normal Negative [facility] Comment on above: Result Comment: This nucleic acid amplification test detects fourteen high-risk HPV types (16,18,31,33,35,39,45,51,52,56,58,59,66,68) without differentiation. Performed at: =G Performed By: #### [id number] #### [facility] [address] [place] [address] Dr. Zonia Zhang Methodology: Comment Normal [facility] Comment on above: Result Comment: This liquid based ThinPrep(R) pap test was screened with the use of an image guided system. Performed at: WB Performed By: #### [id number] #### [facility] [address] [place] [address] Dr. Zonia Zhang Note: Comment Normal [facility] [...] Performed at: WB Performed By: #### [id number] #### [facility] [address] [place] [address] Dr. Zonia Zhang Performed by: Comment Normal [facility] Comment on above: Result Comment: Negin Tomas, Boom Operator (ASCP) Performed at: WB Performed By: #### [id number] #### [facility] [address] [place] [address] Dr. Zonia Zhang Specimen adequacy: Comment Normal [facility] Comment on above: Result Comment: Sati sfactory for evaluation. Endocervical and/or squamous metaplastic cells (endocervical component) are present. Performed at: WB Performed By: #### [id number] #### [facility] [address] [place] [address] Dr. Zonia Zhang Basophils Auto (Bld) [#/Vol] Ordered By: Delano Francis on 08-07-2022 Basophils (Bld) [#/Vol] 0.0 10*3/uL 0.0-0.2 [facility] Basophils/100 WBC Auto (Bld) Ordered By: Delano Francis on 08-07-2022 Basophils/100 WBC (Bld) 0.5 % . [facility] Blood hemoglobin measurement (mass/volume)Ordered By: Delano Francis on 08-07-2022 Hemoglobin (Bld) [Mass/Vol] 12.7 g/dL 11.8-15.4 [facility] Blood leukocytes automated c ount (number/volume)Ordered By: Delano Francis on 08-07-2022 WBC (Bld) [#/Vol] 5.0 10*3/uL 4.5-11.0 [facility] Body fluid albumin measureme nt (mass/volume)Ordered By: Delano Francis on 08-07-2022 Albumin (Body fld) [Mass/Vol] 4.1 g/dL 3.2-5.5 [facility] Cholesterol [Mass/volume] in Serum or PlasmaOrdered By: Delano Francis on 08-07-2022 Cholesterol [Mass/Vol] 253 mg/dL 140-200 [facility] Comment on above: Chol less than 200 m g/dl low risk Chol 201-239 mg/dl borderline risk Chol 240 mg/dl and greater high risk Chol less than 200 m g/dl low riskChol 201-239 mg/dl borderline riskChol 240 mg/dl and greater high risk Cholesterol in LDL Calc [Mas s/Vol]Ordered By: Delano Francis on 08-07-2022 Cholesterol in LDL [Mass/Vol] 181 mg/dL 0-100 [facility] Comment on above: LDL ATP [...] 08-07-2022 Cholesterol in VLDL [Mass/Vol] 12 mg/dL [facility] Creatinine and Glomerular fi ltration rate.predicted panel (S/P/Bld)Ordered By: Delano Francis on 08-07-2022 Creatinine [Mass/Vol] 0.76 mg/dL 0.44-1.03 [facility] Eosinophils Auto (Bld) [#/Vo l]Ordered By: Delano Francis on 08-07-2022 Eosinophils (Bld) [#/Vol] 0.1 10*3/uL 0.0-0.45 [facility] Eosinophils/100 WBC Auto (Bl d)Ordered By: Delano Francis on 08-07-2022 Eosinophils/100 WBC (Bld) 1.6 % . [facility] Erythrocyte distribution wid th Auto (RBC) [Ratio]Ordered By: Delano Francis on 08-07-2022 Erythrocyte distribution width (RBC) [Ratio] 12.6 % 11.9-15.3 [facility] Estimated glomerular filtrat ion rate (GFR) non- AmericanOrdered By: Delano Francis on 08-07-2022 GFR/1.73 sq M.predicted among non-blacks MDRD (S/P/Bld) [Vol rate/Area] > 60 mL/Min [facility] Globulin Calc (S) [Mass/Vol] Ordered By: Delano Francis on 08-07-2022 Globulin (S) [Mass/Vol] 2.3 g/dL [facility] Hematocrit Auto (Bld) [Volum e fraction]Ordered By: Delano Francis on 08-07-2022 Hematocrit (Bld) [Volume fraction] 37.5 % 34.0-46.4 [facility] Laboratory - Chemistry and C hemistry - challengeOrdered By: Delano Francis on 08-07-2022 Glucose [Mass/Vol] 88 mg/dL 70-100 [facility] Laboratory - Hematology and Cell countsOrdered By: Delano Francis on 08-07-2022 Nucleated RBC/100 WBC (Bld) [Ratio] 0.1 % 0-0.5 [facility] Lymphocytes Auto (Bld) [#/Vo l]Ordered By: Delano Francis on 08-07-2022 Lymphocytes (Bld) [#/Vol] 1.4 10*3/uL 1.00-4.8 [facility] Lymphocytes/100 WBC Auto (Bl d)Ordered By: Delano Francis on 08-07-2022 Lymphocytes/100 WBC (Bld) 28.1 % . [facility] MCH Auto (RBC) [Entitic mass ]Ordered By: Delano Francis on 08-07-2022 MCH (RBC) [Entitic mass] 31.8 pg 24.7-34.3 [facility] MCHC Auto (RBC) [Mass/Vol]Or dered By: Delano Francis on 08-07-2022 MCHC (RBC) [Mass/Vol] 33.8 g/dL 32.0-35.0 [facility] MCV Auto (RBC) [Entitic vol] Ordered By: Delano Francis on 08-07-2022 MCV (RBC) [Entitic vol] 94.3 fL 80-100 [facility] Monocyte %Ordered By: Delano Francis on 08-07-2022 Monocyte % 60 mg/dL 35-149 [facility] Comment on above: TRIG ATP [...] 08-07-2022 Monocytes (Bld) [#/Vol] 0.5 10*3/uL 0.0-0.8 [facility] Monocytes/100 WBC Auto (Bld) Ordered By: Delano Francis on 08-07-2022 Monocytes/100 WBC (Bld) 10.1 % . [facility] Neutrophils Auto (Bld) [#/Vo l]Ordered By: Delano Francis on 08-07-2022 Neutrophils (Bld) [#/Vol] 3.0 10*3/uL 1.8-7.7 [facility] Neutrophils/100 WBC Auto (Bl d)Ordered By: Delano Francis on 08-07-2022 Neutrophils/100 WBC (Bld) 59.7 % . [facility] No Panel InformationOrdered By: Delano Francis on 08-07-2022 Estimated GFR () > 60 mL/Min [facility] Comment on above: GFR estimated refere nce range: According to KDOQI guidelines, <60 ml/min/1.73m2 is sufficient to diagnose a patient with chronic kidney disease. Nicotine Metabolite Negative Cutoff=25 [facility] Comment on above: Performed at: - [facility] [address] [id number] Director: Quinton Wolf MD, Phone: [phone] Pharmacy Creatinine Clearance (Chem N/A [facility] Platelet mean volume Auto (B ld) [Entitic vol]Ordered By: Delano Francis on 08-07-2022 Platelet mean volume (Bld) [Entitic vol] 7.8 fL 6.3-10.7 [facility] Platelets Auto (Bld) [#/Vol] Ordered By: Delano Francis on 08-07-2022 Platelets (Bld) [#/Vol] 275 10*3/uL 150-450 [facility] Protein [Mass/volume] in Ser um or PlasmaOrdered By: Delano Francis on 08-07-2022 Protein [Mass/Vol] 6.4 g/dL 6.1-7.9 [facility] RBC Auto (Bld) [#/Vol]Ordere d By: Delano Francis on 08-07-2022 RBC (Bld) [#/Vol] 3.97 10*6/uL 3.60-5.00 [facility] Serum or plasma alanine troy otransferase measurement without P-5'-P (enzymatic activiOrdered By: Delano Francis on 08-07-2022 ALT No additional P-5'-P [Catalytic activity/Vol] 13 U/L 10-60 [facility] Serum or plasma albumin/glob ulin mass ratioOrdered By: Delano Francis on 08-07-2022 Albumin/Globulin [Mass ratio] 1.8 {ratio} [facility] Serum or plasma alkaline nova sphatase measurement (enzymatic activity/volume)Ordered By: Delano Francis on 08-07-2022 ALP [Catalytic activity/Vol] 52 U/L 32-92 [facility] Serum or plasma anion gap de terminationOrdered By: Delano Francis on 08-07-2022 Anion gap [Moles/Vol] 11.7 mmol/L 6.0-15.0 [facility] Serum or plasma aspartate am inotransferase measurement (enzymatic activity/volume)Ordered By: Delano Francis on 08-07-2022 AST [Catalytic activity/Vol] 15 U/L 10-42 [facility] Serum or plasma calcium kevin urement (mass/volume)Ordered By: Delano Francis on 08-07-2022 Calcium [Mass/Vol] 9.8 mg/dL 8.2-10.2 [facility] Serum or plasma chloride ra surement (moles/volume)Ordered By: Delano Francis on 08-07-2022 Chloride [Moles/Vol] 101 mmol/L 95-114 [facility] Serum or plasma high density lipoprotein (HDL) cholesterol measurementOrdered By: Delano Francis on 08-07-2022 Cholesterol in HDL [Mass/Vol] 60 mg/dL 35-85 [facility] Comment on above: HDL CHOL ATP-III CLA SSIFICATION Cardiovascular Risk HDL > or equal to 60 mg/dL LOW HDL < 40 mg/dL HIGH HDL CHOL ATP-III CLA SSIFICATION Cardiovascular RiskHDL > or equal to 60 mg/dL LOWHDL < 40 mg/dL HIGH Serum or plasma potassium me asurement (moles/volume)Ordered By: Delano Francis on 08-07-2022 Potassium [Moles/Vol] 4.4 mmol/L 3.5-5.1 [facility] Serum or plasma sodium measu rement (moles/volume)Ordered By: Delano Francis on 08-07-2022 Sodium [Moles/Vol] 136 mmol/L 136-146 [facility] Serum or plasma total biliru bin measurement (mass/volume)Ordered By: Delano Francis on 08-07-2022 Bilirubin [Mass/Vol] 1.0 mg/dL 0.3-1.2 [facility] Serum or plasma total carbon dioxide measurement (moles/volume)Ordered By: Delano Francis on 08-07-2022 CO2 [Moles/Vol] 27.7 mmol/L 22.0-30.0 [facility] Serum or plasma total choles terol/high density lipoprotein (HDL) cholesterol mass ratOrdered By: Delano Francis on 08-07-2022 Cholesterol.total/Alivia sterol in HDL [Mass ratio] 4.2 {ratio} <5.0 [facility] Serum or plasma urea nitroge n measurement (mass/volume)Ordered By: Delano Francis on 08-07-2022 Urea nitrogen [Mass/Vol] 9 mg/dL 08-22 [facility] TSH DL <= 0.005 mIU/L QnOrde red By: Delano Francis on 08-07-2022 TSH Qn 1.43 m[IU]/L 0.45-5.33 [facility] T3, TOTAL (TRIIODOTHYRONINE) on 06-07-2022 T3, TOTAL 88 ng/dL Normal 71-180 [facility] Comment on above: Performed By: #### T 3TOTAL #### [facility] [address] [address] [address] Zonia Zhang FREE T4on 06-06-2022 Free T4 [Mass/Vol] 0.94 ng/dL Normal 0.76-1.[address] [facility] Comment on above: Performed By: #### F T4 #### [facility] [address] [place] [address] Dr. Zonia Zhang TSHon 06-06-2022 TSH 1.364 uIU/mL Normal 0.358-3.74 0 [facility] Comment on above: Performed By: #### T SH #### [facility] [address] [place] [address] Dr. Zonia Zhang COVID Quick Testingon 2021 Result Positive [employer] Other Quick Flu[facility] 12-27-2021 FLUAV Ab CF (S) [Titer] Negative N [employer] Other FLUBV Ab CF (S) [Titer] Negative N [employer] Other Vital Signs Date Time Vital Sign Value Performing Clinician Facility 08-03-2025 09:28-0400 Body mass index (BMI) [Ratio] 36.46 kg/m2 Ángel Lopezo DO Work Phone: [facility] 08-03-2025 09:28-0400 Body weight 105.6 kg Ángel Sita DO Work Phone: [facility] 08-03-2025 09:28-0400 Diastolic blood pressure 76 mm[Hg] Ángel Sita DO Work Phone: [facility] 08-03-2025 09:28-0400 Systolic blood pressure 120 mm[Hg] Ángel Sita DO Work Phone: [facility] 07-24-2025 11:34-0400 Body mass index (BMI) [Ratio] 36.57 kg/m2 Ángel Sita DO Work Phone: [facility] 07-24-2025 11:34-0400 Body weight 105.92 kg Ángel Sita DO Work Phone: [facility] 07-24-2025 11:34-0400 Diastolic blood pressure 74 mm[Hg] Ángel Sita DO Work Phone: [facility] 07-24-2025 11:34-0400 Systolic blood pressure 118 mm[Hg] Ángel Sita DO Work Phone: [facility] 07-17-2025 14:59-0400 Body mass index (BMI) [Ratio] 36.77 kg/m2 Ángel Sita DO Work Phone: [facility] 07-17-2025 14:59-0400 Body weight 106.5 kg Ángel Sita DO Work Phone: [facility] 07-17-2025 14:59-0400 Diastolic blood pressure 70 mm[Hg] Ángel Sita DO Work Phone: [facility] 07-17-2025 14:59-0400 Systolic blood pressure 118 mm[Hg] Ángel Sita DO Work Phone: [facility] 07-10-2025 13:59-0400 Body mass index (BMI) [Ratio] 36.41 kg/m2 Ángel Sita DO Work Phone: [facility] 07-10-2025 13:59-0400 Body weight 105.46 kg Ángel Sita DO Work Phone: [facility] 07-10-2025 13:59-0400 Diastolic blood pressure 74 mm[Hg] Ángel Sita DO Work Phone: [facility] 07-10-2025 13:59-0400 Systolic blood pressure 126 mm[Hg] Ángel Sita DO Work Phone: [facility] 06-26-2025 13:08-0400 Body mass index (BMI) [Ratio] 36.2 kg/m2 Ángel Sita DO Work Phone: [facility] 06-26-2025 13:08-0400 Body weight 104.83 kg Ángel Sita DO Work Phone: [facility] 06-26-2025 13:08-0400 Diastolic blood pressure 74 mm[Hg] Ángel Sita DO Work Phone: [facility] 06-26-2025 13:08-0400 Systolic blood pressure 116 mm[Hg] Ángel Sita DO Work Phone: [facility] 06-12-2025 14:21-0400 Body mass index (BMI) [Ratio] 35.73 kg/m2 Ángel Sita DO Work Phone: [facility] 06-12-2025 14:21-0400 Body weight 103.47 kg Ángel Sita DO Work Phone: [facility] 06-12-2025 14:21-0400 Diastolic blood pressure 70 mm[Hg] Ángel Sita DO Work Phone: [facility] 06-12-2025 14:21-0400 Systolic blood pressure 120 mm[Hg] Ángel Sita DO Work Phone: [facility] 05-30-2025 09:10-0400 Body mass index (BMI) [Ratio] 35.52 kg/m2 Ángel Sita DO Work Phone: [facility] 05-30-2025 09:10-0400 Body weight 102.88 kg Ángel Sita DO Work Phone: [facility] 05-30-2025 09:10-0400 Diastolic blood pressure 78 mm[Hg] Ángel Sita DO Work Phone: [facility] 05-30-2025 09:10-0400 Systolic blood pressure 120 mm[Hg] Ángel Sita DO Work Phone: [facility] 05-01-2025 08:36-0400 Body mass index (BMI) [Ratio] 34.43 kg/m2 Deisy MUNOZ Work Phone: [facility] 05-01-2025 08:36-0400 Body weight 99.7 kg Deisy MUNOZ Work Phone: [facility] 05-01-2025 08:36-0400 Diastolic blood pressure 74 mm[Hg] Deisy Villar PA Work Phone: [facility] 05-01-2025 08:36-0400 Systolic blood pressure 118 mm[Hg] Deisy Adithya PA Work Phone: [facility] 03-30-2025 10:28-0400 Body mass index (BMI) [Ratio] 32.89 kg/m2 Ángel Sita DO Work Phone: [facility] 03-30-2025 10:28-0400 Body weight 95.25 kg Ángel Sita DO Work Phone: [facility] 03-30-2025 10:28-0400 Diastolic blood pressure 84 mm[Hg] Ángel Sita DO Work Phone: [facility] 03-30-2025 10:28-0400 Systolic blood pressure 120 mm[Hg] Ángel Sita DO Work Phone: [facility] 03-02-2025 09:58-0400 Body mass index (BMI) [Ratio] 31.76 kg/m2 Deisy Villar PA Work Phone: [facility] 03-02-2025 09:58-0400 Body weight 91.99 kg Deisy MUNOZ Work Phone: [facility] 03-02-2025 09:58-0400 Diastolic blood pressure 72 mm[Hg] Deisy MUNOZ Work Phone: [facility] 03-02-2025 09:58-0400 Systolic blood pressure 120 mm[Hg] Deisy MUNOZ Work Phone: [facility] 02-02-2025 09:25-0500 Body mass index (BMI) [Ratio] 30.54 kg/m2 Ángel Sita DO Work Phone: [facility] 02-02-2025 09:25-0500 Body weight 88.45 kg Ángel Sita DO Work Phone: [facility] 02-02-2025 09:25-0500 Diastolic blood pressure 70 mm[Hg] Ángel Sita DO Work Phone: [facility] 02-02-2025 09:25-0500 Systolic blood pressure 120 mm[Hg] Ángel Sita DO Work Phone: [facility] 10-18-2024 11:19-0500 Body height 170.18 cm Robles Ball DO Work Phone: [facility] 10-18-2024 11:19-0500 Body mass index (BMI) [Ratio] 29.7 kg/m2 Robles Ball DO Work Phone: [facility] 10-18-2024 11:19-0500 Body weight 86.23 kg Robles Ball DO Work Phone: [facility] 10-18-2024 11:19-0500 Diastolic blood pressure 77 mm[Hg] Robles Ball DO Work Phone: [facility] 10-18-2024 11:19-0500 Heart rate 88 /min Robles Ball DO Work Phone: [facility] 10-18-2024 11:19-0500 Respiratory rate 12 /min Robles Ball DO Work Phone: [facility] 10-18-2024 11:19-0500 Systolic blood pressure 111 mm[Hg] Robels Ball DO Work Phone: [facility] 09-13-2024 14:28-0400 Body mass index (BMI) [Ratio] 28.79 kg/m2 Ángel Sita DO Work Phone: [facility] 09-13-2024 14:28-0400 Body weight 83.37 kg Ángel Sita DO Work Phone: [facility] 09-13-2024 14:28-0400 Diastolic blood pressure 70 mm[Hg] Ángel Sita DO Work Phone: [facility] 09-13-2024 14:28-0400 Systolic blood pressure 120 mm[Hg] Ángel Sita DO Work Phone: [facility] 05-03-2024 14:40-0400 Body height 170.18 cm [facility] 05-03-2024 14:40-0400 Body mass index (BMI) [Ratio] 28.3 kg/m2 [facility] 05-03-2024 14:40-0400 Body weight 82.1 kg [facility] 05-03-2024 14:40-0400 Diastolic blood pressure 82 mm[Hg] [facility] 05-03-2024 14:40-0400 Heart rate 78 /min [facility] 05-03-2024 14:40-0400 SaO2% (BldA) [Mass fraction] 98 % [facility] 05-03-2024 14:40-0400 Systolic blood pressure 122 mm[Hg] [facility] 01-06-2024 14:20-0500 Body height 170.2 cm Deisy MUNOZ Work Phone: [facility] 01-06-2024 14:20-0500 Body mass index (BMI) [Ratio] 28.05 kg/m2 Deisy MUNOZ Work Phone: [facility] 01-06-2024 14:20-0500 Body weight 81.25 kg Deisy MUNOZ Work Phone: [facility] 01-06-2024 14:20-0500 Diastolic blood pressure 70 mm[Hg] Deisy MUNOZ Work Phone: [facility] 01-06-2024 14:20-0500 Systolic blood pressure 120 mm[Hg] Deisy MUNOZ Work Phone: [facility] 10-02-2023 10:00-0400 Body height 170.18 cm Robles Ball Other [employer] Other 10-02-2023 10:00-0400 Body mass index (BMI) [Ratio] 29.38 kg/m2 Robles Ball Other [employer] Other 10-02-2023 10:00-0400 Body weight 85.1 kg Robles Ball Other [employer] Other 10-02-2023 10:00-0400 Diastolic blood pressure 83 mm[Hg] Robles Ball Other [employer] Other 10-02-2023 10:00-0400 Respiratory rate 12 /min Robles Ball Other [employer] Other 10-02-2023 10:00-0400 Systolic blood pressure 131 mm[Hg] Robles Ball Other [employer] Other 01-22-2023 10:30-0500 Body height 170.18 cm Robles Ball Other [employer] Other 01-22-2023 10:30-0500 Body mass index (BMI) [Ratio] 29.91 kg/m2 Robles Ball Other [employer] Other 01-22-2023 10:30-0500 Body weight 86.64 kg Robles Ball Other [employer] Other 01-22-2023 10:30-0500 Diastolic blood pressure 72 mm[Hg] Robles Ball Other [employer] Other 01-22-2023 10:30-0500 Respiratory rate 16 /min Robles Ball Other [employer] Other 01-22-2023 10:30-0500 Systolic blood pressure 122 mm[Hg] Robles Ball Other [employer] Other 09-26-2022 16:10-0400 Body height 170.18 cm Kiya Schaffer Other [employer] Other 09-26-2022 16:10-0400 Body mass index (BMI) [Ratio] 29.29 kg/m2 Kiya Schaffer Other [employer] Other 09-26-2022 16:10-0400 Body temperature 98.8 [degF] Kiya Schaffer Other [employer] Other 09-26-2022 16:10-0400 Body weight 84.82 kg Kiya Schaffer Other [employer] Other 09-26-2022 16:10-0400 Diastolic blood pressure 73 mm[Hg] Kiya Schaffer Other [employer] Other 09-26-2022 16:10-0400 Respiratory rate 18 /min Kiya Schaffer Other [employer] Other 09-26-2022 16:10-0400 SaO2% (BldA) [Mass fraction] 97 % Kiya Schaffer Other [employer] Other 09-26-2022 16:10-0400 Systolic blood pressure 125 mm[Hg] Kiya Schaffer Other [employer] Other 12-27-2021 10:15-0500 Body height 170.18 cm Elsi Mayer Other [employer] Other 12-27-2021 10:15-0500 Body mass index (BMI) [Ratio] 28.19 kg/m2 Elsi Mayer Other [employer] Other 12-27-2021 10:15-0500 Body temperature 100.3 [degF] Elsi Mayer Other [employer] Other 12-27-2021 10:15-0500 Body weight 81.65 kg Elsi Mayer Other [employer] Other 12-27-2021 10:15-0500 Respiratory rate 18 /min Elsi Mayer Other [employer] Other 12-27-2021 10:15-0500 SaO2% (BldA) [Mass fraction] 98 % Elsi Mayer Other [employer] Other Encounters Encounter Date Encounter Type Care Provider Facility Start: 08-07-2025 End: 08-07-2025 Bamboo flowsheet Ángel Sita DO Work Phone: [facility] Start: 08-07-2025 End: 08-07-2025 Bamboo flowsheet Ángel Sita DO Work Phone: [facility] Start: 08-05-2025 End: 08-05-2025 Clinisync Result Encounter Ángel Sita DO Work Phone: [facility] Unsolicited Start: 08-05-2025 End: 08-05-2025 Clinisync Result Encounter Ángel Sita DO Work Phone: [facility] Unsolicited Start: 08-03-2025 End: 08-03-2025 Bamboo flowsheet Ángel Sita DO Work Phone: [facility] Start: 08-03-2025 End: 08-03-2025 Bamboo flowsheet Ángel Sita DO Work Phone: [facility] Start: 08-03-2025 End: 08-03-2025 flow sheet Ánegl Sita DO Work Phone: [facility] Comment on above: Third trimester preg lai ([facility]); 39 weeks gestation of ([facility]) Start: 08-03-2025 End: 08-03-2025 ambulatory ÁNGEL SITA [...] flowsheet Ángel Sita DO Work Phone: [facility] Start: 07-24-2025 End: 07-24-2025 ambulatory ÁNGEL SITA Not Available Start: 07-24-2025 End: 07-24-2025 flow sheet Ángel Sita DO Work Phone: [facility] Comment on above: Third trimester preg lai ([facility]); 37 weeks gestation of ([facility]) Start: 07-22-2025 End: 07-22-2025 Clinisync Result Encounter Ángel Sita DO Work Phone: [facility] Unsolicited Start: 07-22-2025 End: 07-22-2025 Clinisync Result Encounter Ángel Sita DO Work Phone: [facility] Unsolicited Start: 07-17-2025 End: 07-17-2025 flow sheet Ángel Sita DO Work Phone: [facility] Comment on above: 36 weeks gestation o f ([facility]); Third trimester ([facility]); History of miscarriage; Multigravida of advanced maternal age in third trimester ([facility]); Excessive growth affecting management of in third trimester, single or unspecified fetus ([facility]) Start: 07-17-2025 End: 07-17-2025 ambulatory ÁNGEL SITA Not Available Start: 07-17-2025 End: 07-17-2025 Bamboo flowsheet Ángel Sita DO Work Phone: [facility] Start: 07-17-2025 End: 07-17-2025 Bamboo flowsheet [...] Comment on above: Third trimester preg lai ([facility]); 35 weeks gestation of ([facility]) Start: 07-10-2025 End: 07-10-2025 ambulatory ÁNGEL SITA [...] Comment on above: Third trimester preg lai ([facility]); 33 weeks gestation of ([facility]) Start: 06-26-2025 End: 06-26-2025 ambulatory ÁNGEL SITA Not Available Start: 06-26-2025 End: 06-26-2025 ambulatory DEISY MURRAYEY Not Available Start: 06-24-2025 End: 06-24-2025 Clinisync [...] of advanced maternal age in third trimester ([facility]) Start: 06-12-2025 End: 06-12-2025 ambulatory ÁNGEL SITA [...] flowsheet Ángel Sita DO Work Phone: [facility] Start: 05-30-2025 End: 05-30-2025 flow sheet Ángel Sita DO Work Phone: [facility] Comment on above: Third trimester preg lai ([facility]); 29 weeks gestation of ([facility]); History of miscarriage; Multigravida of advanced maternal age in third trimester ([facility]) Start: 05-30-2025 End: 05-30-2025 ambulatory ÁNGEL SITA Not Available Start: 05-11-2025 End: 05-11-2025 Clinisync Result Encounter Edson Dewitt NP Work Phone: [facility] External Department Unsolicited Start: 05-11-2025 End: 05-11-2025 Clinisync Result Encounter Edson Dewitt NP Work Phone: [facility] External Department Unsolicited Start: 05-01-2025 End: 05-01-2025 Bamboo flowsheet Deisy MUNOZ Work Phone: [facility] Start: 05-01-2025 End: 05-01-2025 Bamboo flowsheet Deisy MUNOZ Work Phone: [facility] Start: 05-01-2025 End: 05-01-2025 flow sheet Deisy MUNOZ Work Phone: [facility] Comment on above: size inconsist ent with dates (Primary Dx); Second trimester ; 25 weeks gestation of Start: 05-01-2025 End: 05-01-2025 ambulatory DEISY VILLAR Not Available Start: 04-18-2025 End: 04-18-2025 Clinisync Result Encounter Ángel Sita DO Work Phone: [facility] Unsolicited Start: 04-18-2025 End: 04-18-2025 Clinisync Result Encounter Ángel Sita DO Work Phone: [facility] External Department Unsolicited Start: 04-18-2025 End: 04-18-2025 ambulatory ÁNGEL SITA Not Available Start: 03-30-2025 End: 03-30-2025 Bamboo flowsheet Ángel Sita DO Work Phone: [facility] Start: 03-30-2025 End: 03-30-2025 Bamboo flowsheet Ángel Sita DO Work Phone: [facility] Start: 03-30-2025 End: 03-30-2025 flow sheet Ángel Sita DO Work Phone: [facility] Comment on above: Second trimester pre gnancy; 21 weeks gestation of ; Diabetes mellitus screening; Uterovaginal prolapse, incomplete; Encounter for follow-up ultrasound of anatomy Start: 03-30-2025 End: 03-30-2025 ambulatory ÁNGEL SITA Not Available Start: 03-21-2025 End: 03-21-2025 Clinisync Result Encounter Deisy MUNOZ Work Phone: [facility] External Department Unsolicited Start: 03-21-2025 End: 03-21-2025 Clinisync Result Encounter Deisy MUNOZ Work Phone: [facility] External Department Unsolicited Start: 03-02-2025 End: 03-02-2025 Bamboo flowsheet Deisy MUNOZ Work Phone: [facility] Start: 03-02-2025 End: 03-09-2025 Bamboo flowsheet Deisy MUNOZ Work Phone: [facility] Start: 03-02-2025 End: 03-09-2025 Clinisync Result Encounter Deisy MUNOZ Work Phone: [facility] External Department Unsolicited Start: 03-02-2025 End: 03-03-2025 External Result Encounter Deisy MUNOZ Work Phone: [facility] External Department Unsolicited Start: 03-02-2025 End: 03-02-2025 Patient encounter procedure Deisy MUNOZ Work Phone: [facility] Start: 03-02-2025 End: 03-02-2025 Periodic preventive med est patient 18-39 yrs Deisy Villar PA Work Phone: [facility] Comment on above: 17 weeks [...] sheet Ángel Sita DO Work Phone: [facility] Comment on above: 13 weeks [...] 10-18-2024 ambulatory Robles Charles DO Work Phone: [facility] Work Phone: Start: 10-18-2024 End: 10-18-2024 Encounter for general adult medical examination without abnormal findings Robles Charles DO Work Phone: [facility] Start: 10-18-2024 End: 10-18-2024 Patient encounter procedure Robles Charles DO Work Phone: [facility] Work Phone: Start: 10-16-2024 Patient encounter status Jermaine min Ball DO Work Phone: [facility] Start: 10-14-2024 Non-patient / Non-visit Benjam in Ball DO Work Phone: [facility] Work Phone: Start: 09-22-2024 End: 09-22-2024 Departed Referred DO Robles Charles Work Phone: [facility] Start: 09-22-2024 End: 09-22-2024 ambulatory DO Robles Charles Work Phone: [facility] Work Phone: Start: 09-13-2024 End: 09-13-2024 [...] Not Available Start: 08-29-2024 End: 08-29-2024 ambulatory [facility] Work Phone: Start: 08-29-2024 End: 08-29-2024 Patient encounter procedure [facility] Work Phone: Start: 05-03-2024 End: 05-03-2024 ambulatory [facility] Work Phone: Start: 05-03-2024 End: 05-03-2024 Patient encounter procedure [facility] Work Phone: Start: 2024 End: 2024 ambulatory DO Robles Ball Work Phone: [facility] Work Phone: Start: 2024 End: 2024 Patient encounter procedure DO Robles Ball Work Phone: [facility] Work Phone: Start: 01-07-2024 End: 01-07-2024 Patient encounter procedure DO Robles Ball Work Phone: [facility] [place] Work Phone: Start: 01-07-2024 End: 01-07-2024 ambulatory DO Robles Ball Work Phone: [facility] Work Phone: Start: 01-06-2024 End: 01-06-2024 Office outpatient visit 15 minutes Deisy MUNOZ Work Phone: [facility] Comment on above: Encounter for weight management; Hormone disorder; 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 Start: 10-02-2023 End: 10-02-2023 ambulatory Robles Charles Other [employer] Other Start: 10-02-2023 Encounter for genera l adult medical examination without abnormal findings Robles Charles [facility] Start: 10-02-2023 Periodic preventive med est patient 18-39 yrs Robles Charles [facility] Start: 09-17-2023 End: 09-17-2023 ambulatory MD Liz Conteh Work Phone: [facility] Work Phone: Start: 09-17-2023 End: 09-17-2023 Departed Referred MD Liz Conteh Work Phone: [facility]-Employee Benefit Screening Start: 01-22-2023 End: 01-22-2023 ambulatory Robles Charles Other [employer] Other Start: 01-22-2023 Office outpatient vi sit 15 minutes Robles Charles [facility] Start: 01-12-2023 End: 01-12-2023 ambulatory Robles Charles Other [employer] Other Start: 01-12-2023 Telephone encounter Robles Charles [facility] Start: 12-24-2022 End: 12-24-2022 ambulatory Robles Charles Other [employer] Other Start: 12-24-2022 Office outpatient vi sit 15 minutes Robles Charles [facility] Start: 09-30-2022 End: 09-30-2022 ambulatory Kiya Schaffer Other [employer] Other Start: 09-30-2022 Telephone encounter Kiya Schaffer [facility] [address] Start: 09-26-2022 End: 09-26-2022 Departed Referred MD Liz Conteh Work Phone: [facility] [place] Start: 09-26-2022 End: 09-26-2022 ambulatory MD Liz Conteh Work Phone: [facility] Work Phone: Start: 09-26-2022 Office outpatient vi sit 15 minutes Kiya Schaffer [facility] Start: 09-25-2022 ([facility] C Vac) [facility] Co vid Vaccine [facility] Start: 09-25-2022 End: 09-25-2022 ambulatory MD Liz Conteh Work Phone: [facility] Work Phone: Start: 09-25-2022 End: 09-25-2022 Patient encounter procedure MD Liz Conteh Work Phone: [facility]-Covid Vaccine Off Site Start: 08-25-2022 End: 08-25-[address] ÁNGEL BUCKNER Facility:[facility] Start: 08-07-2022 End: 08-07-2022 Departed Referred MD Liz Conteh Work Phone: [facility]-Employee Benefit Screening Start: 06-06-2022 End: 06-07-[address] ROBLES CHARLES Facility:[facility] Start: 01-01-2022 End: 01-01-2022 ambulatory Elsi Mayer Other [employer] Other Start: 01-01-2022 Office outpatient vi sit 5 minutes Elsi Leyla [facility] Start: 12-27-2021 End: 12-27-2021 ambulatory Elsi Mayer Other [employer] Other Start: 12-27-2021 Office outpatient vi sit 15 minutes Elsi Leyla [facility] Start: 08-23-2021 ([facility] C Vac) [facility] Co vid Vaccine Subha Fitt [facility] Procedures Date Procedure Procedure Detail Performing Clinician Start: 08-05-2025 US OB BPP W NON-STRESS Ángel Sita DO Work Phone: Start: 08-03-2025 Urnls dip stick/tabl et rgnt non-auto w/o micrscp Ángel Sita DO Work Phone: Start: 07-29-2025 US OB BPP W NON-STRESS Ángel Sita DO Work Phone: Start: 07-24-2025 Urnls dip stick/tabl et rgnt non-auto w/o micrscp Ángel Sita DO Work Phone: Start: 07-22-2025 US OB BPP W NON-STRESS Nágel Sita DO Work Phone: Start: 07-17-2025 Urnls dip stick/tabl et rgnt non-auto w/o micrscp Ángel Sita DO Work Phone: Start: 07-15-2025 US OB BPP W NON-STRESS Ángel Sita DO Work Phone: Start: 07-10-2025 Urnls dip stick/tabl et rgnt non-auto w/o micrscp Ángel Sita DO Work Phone: Start: 07-08-2025 OB BPP W NON-STRESS Ángel Sita DO Work Phone: Start: 07-01-2025 OB BPP W NON-STRESS Ágnel Sita DO Work Phone: Start: 06-26-2025 Urnls [...] Start: 05-11-2025 US OB GROWTH Edson fu [employer] Work Phone: Start: 04-18-2025 ALL CBC WITH [...] 09-13-2029 Screening for malignant neoplasm of cervix [facility] Start: 03-02-2028 Screening for malignant neoplasm of cervix Pap Smear [facility] Start: 09-19-2025 End: 09-19-2025 Patient encounter procedure [facility] Start: 08-07-2025 End: 08-07-2025 Patient encounter procedure [facility] Comment on above: Arrived Start: 08-03-2025 End: 08-03-2025 Patient encounter procedure [facility] Comment on above: Arrived Start: 07-31-2025 Influenza vaccination [facility] Start: 07-24-2025 End: 07-24-2025 Patient encounter procedure 07/24/2025 11:20 AM EDT Routine [facility] [address] [facility] [facility] [place] [id number] Ángel Buckner, DO [address] [place] [address] [facility] Start: 07-17-2025 End: 07-17-2025 Patient encounter procedure [facility] Comment on above: Arrived Start: 07-10-2025 End: 07-10-2026 CULTURE, GROUP B STREP WITH SUSCEPTIBLITY CULTURE, GROUP B STREP WITH SUSCEPTIBLITY Lab Routine Third trimester ([facility]) Expected: 07/10/2025, Expires: 07/10/2026 [facility] Work [...] in third trimester, single or unspecified fetus ([facility]) Expected: 06/12/2025, Expires: 10/13/2025 [facility] Work Phone: Comment on above: Expected: 06/12/2025, Expires: Start: 05-30-2025 End: 11-30-2025 US biophysical profile w non stress test US biophysical profile w non stress test Imaging Routine History of miscarriage Multigravida of advanced maternal age in third trimester ([facility]) Expected: 05/30/2025 (Approximate), Expires: 11/30/2025 [facility] [...] EDT Ancillary Procedure [facility] [address] [facility] [facility] [place] [address] [facility] Start: 04-03-2025 End: 04-03-2025 Patient encounter procedure 04/03/2025 9:50 AM EDT Routine [facility] [address] [facility] [place] [address] Ángel Buckner, DO [address], [place] [id number] [facility] Start: 04-03-2025 End: 04-03-2025 Professional / ancillary services management 04/03/2025 8:00 AM EDT Ancillary Procedure [facility] [address] [facility] [place] [address] [facility] Start: 03-30-2025 End: 03-30-2026 CBC panel - Blood by Automated count CBC Lab Routine Second trimester Diabetes mellitus screening Expected: 03/30/2025 (Approximate), Expires: 03/30/2026 [facility] Work Phone: Comment on above: Expected: 03/30/2025 (Approximate), Expi res: 03/30/2026 Start: 03-30-2025 End: 03-30-2026 Measurement of glucose 1 hour after glucose challenge for glucose tolerance test Glucose tolerance, 1 hour Lab Routine Second trimester Diabetes mellitus screening Expected: 03/30/2025 (Approximate), Expires: 03/30/2026 [facility] Comment on above: Expected: 03/30/2025 (Approximate), Expi [...] Routine [facility] [address] [place] [phone] Deisy Villar PA [address] [place] [address] Arrived [facility] Comment on above: Arrived Start: 02-02-2025 End: 02-02-2025 Patient encounter procedure [facility] Comment on above: Arrived Start: 01-05-2025 End: 01-05-2025 ambulatory 01/05/2025 1:30 PM EST Initial [facility] [address] [place] [phone] [facility] Start: 01-05-2025 End: 01-05-2025 Professional / ancillary services management 01/05/2025 1:00 PM EST Ancillary Procedure [facility] [address] [place] [phone] [facility] Start: 09-13-2024 End: 09-13-2024 Patient encounter procedure [facility] Comment on above: Arrived Start: 07-31-2024 Influenza vaccination Influenza Vaccine (#1) [facility] Start: 02-03-2024 End: 02-03-2024 Patient encounter procedure 02/03/2024 1:50 PM EST Office Visit [facility] [address] [place] [phone] Deisy Villar PA [address] [place] [address] [facility] Start: 01-07-2024 Dehydroepiandrosterone sulfate level [facility] Start: 01-07-2024 Sex hormone binding globulin measurement [facility] Start: 01-07-2024 T3 reverse measurement [facility] Start: 01-07-2024 Thyroxine measurement [facility] Start: 01-07-2024 [facility] Start: 01-06-2024 End: 01-06-2025 Anti-thyroglobulin antibody Anti-thyroglobulin antibody Lab Routine Hormone disorder Expected: 01/06/2024 (Approximate), Expires: 01/06/2025 [facility] Comment on above: Expected: 01/06/2024 (Approximate), Expi res: 01/06/2025 Start: 01-06-2024 End: 01-06-2025 C-peptide C-peptide Lab Routine Hormone disorder Expected: 01/06/2024 (Approximate), Expires: 01/06/2025 [facility] Comment on above: Expected: 01/06/2024 (Approximate), Expi res: 01/06/2025 Start: 01-06-2024 End: 01-06-2025 Cortisol free Cortisol, free Lab Routine Hormone disorder Expected: 01/06/2024 (Approximate), Expires: 01/06/2025 [facility] Comment on above: Expected: 01/06/2024 (Approximate), Expi res: 01/06/2025 Start: 01-06-2024 End: 01-06-2025 Glucose [Mass/volume] in Serum or Plasma Glucose, random Lab Routine Hormone disorder Expected: 01/06/2024 (Approximate), Expires: 01/06/2025 [facility] Comment on above: Expected: 01/06/2024 (Approximate), Expi res: 01/06/2025 Start: 01-06-2024 End: 01-06-2025 Insulin, total Insulin, total Lab Routine Hormone disorder Expected: 01/06/2024 (Approximate), Expires: 01/06/2025 [facility] Comment on above: Expected: 01/06/2024 (Approximate), Expi res: 01/06/2025 Start: 01-06-2024 End: 01-06-2025 Serotonin serum Serotonin serum Lab Routine Hormone disorder Expected: 01/06/2024 (Approximate), Expires: 01/06/2025 [facility] Comment on above: Expected: 01/06/2024 (Approximate), Expi res: 01/06/2025 Start: 01-06-2024 End: 01-06-2025 Thyroglobulin Thyroglobulin Lab Routine Hormone disorder Expected: 01/06/2024 (Approximate), Expires: 01/06/2025 [facility] Comment on above: Expected: 01/06/2024 (Approximate), Expi res: 01/06/2025 Start: 01-06-2024 End: 01-06-2025 Thyrotropin [Units/volume] in Serum or Plasma [facility] Comment on above: Ordered: 01/06/2024 Expected: 01/06/2024 (Approximate), Expires: 01/06/2025 Start: 09-17-2023 [facility] Start: 08-07-2022 [facility] Work Phone: Calcitriol [Mass/vol ume] in Serum or Plasma [facility] CHLAMYDIA TRACHOMATI S (GENITO/STI) CHLAMYDIA TRACHOMATIS (GENITO/STI) Lab Routine Exposure to STD Ordered: 03/02/2025 [facility] Comment on above: Ordered: 03/02/2025 Cytology Cervical or vaginal smear or scraping study Pap Smear Pathology and Cytology Routine Well woman exam with routine gynecological exam Ordered: 09/13/2024 [facility] Work Phone: Comment on above: Ordered: 09/13/2024 Cytology Cervical or vaginal smear or scraping study Pap Smear Pathology and Cytology Routine Well woman exam with routine gynecological exam Ordered: 03/02/2025 [facility] Comment on above: Ordered: 03/02/2025 DHEA-sulfate DHEA-sulfate Lab Routine Hormone disorder Ordered: 01/06/2024 [facility] Comment on above: Ordered: 01/06/2024 Estradiol Estradiol Lab Ro utine Hormone disorder Ordered: 01/06/2024 [facility] Work Phone: Comment on above: Ordered: 01/06/2024 Estradiol (E2) [Mass /volume] in Serum or Plasma [facility] Estrone Estrone Lab Rout ine Hormone disorder Ordered: 01/06/2024 [facility] Comment on above: Ordered: 01/06/2024 Estrone (E1) [Mass/v olume] in Serum or Plasma [facility] Ferritin [Mass/volum e] in Serum or Plasma Ferritin Lab Routine Hormone disorder Ordered: 01/06/2024 [facility] Comment on above: Ordered: 01/06/2024 Hemoglobin A1c measurement Hemog lobin A1c Lab Routine Hormone disorder Ordered: 01/06/2024 [facility] Comment on above: Ordered: 01/06/2024 Human papilloma viru s DNA [Presence] in Unspecified specimen by Probe with amplification HPV DNA probe, amplified Microbiology Routine Well woman exam with routine gynecological exam Ordered: 09/13/2024 [facility] Comment on above: Ordered: 09/13/2024 Human papilloma viru s DNA [Presence] in Unspecified specimen by Probe with amplification HPV DNA probe, amplified Microbiology Routine Well woman exam with routine gynecological exam Ordered: 03/02/2025 [facility] Comment on above: Ordered: 03/02/2025 Insulin [Units/volum e] in Serum or Plasma [facility] Neisseria gonorrhoea e DNA [Presence] in Unspecified specimen by ROB with probe detection Neisseria gonorrhea DNA probe, direct Lab Routine Exposure to STD Ordered: 03/02/2025 [facility] Comment on above: Ordered: 03/02/2025 Progesterone Progesterone Lab Routine Hormone disorder Ordered: 01/06/2024 [facility] Comment on above: Ordered: 01/06/2024 Progesterone [Mass/v olume] in Serum or Plasma [facility] Serotonin [Mass/volu me] in Plasma [facility] Sex hormone binding globulin Sex hormone binding globulin Lab Routine Hormone disorder Ordered: 01/06/2024 [facility] Comment on above: Ordered: 01/06/2024 SURESWAB(R) ADVANCED VAGINITIS PLUS, TMA SURESWAB(R) ADVANCED VAGINITIS PLUS, TMA Pathology and Cytology Routine Vaginal discharge Ordered: 03/02/2025 [facility] Work Phone: Comment on above: Ordered: 03/02/2025 T3, reverse T3, reverse Lab Routine Hormone disorder Ordered: 01/06/2024 [facility] Comment on above: Ordered: 01/06/2024 Testosterone Free [Mass/volume] in Serum or Plasma [facility] TESTOSTERONE, FREE TESTOSTERONE, FREE Lab Routine Hormone disorder Ordered: 01/06/2024 [facility] Comment on above: Ordered: 01/06/2024 Testosterone, free, total Testos terone, free, total Lab Routine Hormone disorder Ordered: 01/06/2024 [facility] Comment on above: Ordered: 01/06/2024 Throat culture Throat Culture [facility] Thyroglobulin Ab [Units/volume] in Serum or Plasma [facility] Thyroid peroxidase antibody Thyr oid peroxidase antibody Lab Routine Hormone disorder Ordered: 01/06/2024 [facility] Comment on above: Ordered: 01/06/2024 Thyroperoxidase Ab [Units/volume] in Serum or Plasma [facility] Thyroxine (T4) free [Mass/volume] in Serum or Plasma T4, free Lab Routine Hormone disorder Ordered: 01/06/2024 [facility] Comment on above: Ordered: 01/06/2024 Triiodothyronine (T3 ) Free [Mass/volume] in Serum or Plasma T3, free Lab Routine Hormone disorder Ordered: 01/06/2024 [facility] Comment on above: Ordered: 01/06/2024 Vitamin D 1,25 dihydroxy Vitamin D 1,25 dihydroxy Lab Routine Hormone disorder Ordered: 01/06/2024 [facility] Comment on above: Ordered: 01/06/2024 [facility] Work Phone: Immunizations Immunization Date Immunization Notes Care Provider Fa cility 09-15-2023 influenza, injectabl e, quadrivalent, preservative free [facility] 09-15-2023 influenza virus vaccine, unspecified formulation Ángel Buckner DO Work Phone: [facility] 09-25-2022 COVID-19 Moderna (BIvalent) Kiya Schaffer Other [facility] 08-23-2021 COVID-19 Pfizer Subha Moralezt Other [facility] 07-31-2021 COVID-19 Pfizer Subha Fitt Other [facility] 05-19-2021 diphtheria, tetanus toxoids and pertussis vaccine [facility] Payers Date Payer Category Payer Self-pay [id number] 2022 Private Health Insurance [employer] [id number] 2022 Unknown [employer] [id number] 2022-Present [address] [place] [address] [id number] 1990 Unknown [id number] 2.16.840.1.306982.3.579.2 .593 1990 Unknown [id number] 2.16.840.1.123150.3.579.2 .593 1990 Unknown [id number] 2.16.840.1.570490.3.579.2 .1259 1990 Unknown [id number] 2.16.840.1.866535.3.579.2 .1258 1990 Unknown [id number] 2.16.840.1.272553.3.579.2 .1258 1990 Unknown [id number] 2.16.840.1.180485.3.579.2 .1258 1990 Unknown [id number] 2.16.840.1.776064.3.579.2 .1258 1990 Unknown [id number] 2.16.840.1.837520.3.579.2 .1258 1990 Unknown [id number] 2.16.840.1.126622.3.579.2 .1258 1990 Unknown [id number] 2.16.840.1.988277.3.579.2 .1258 1990 Unknown [id number] 2.840.1.400626.3.579.2 .1258 1990 Unknown [id number] 2.16840.1.767477.3.579.2 .1258 1990 Unknown [id number] 2.16840.1.490946.3.579.2 .1258 1990 Unknown [id number] 2.16840.1.322955.3.579.2 .1258 1990 Unknown [id number] 2.16840.1.330331.3.579.2 .1258 1990 Unknown [id number] 2.16.840.1.851365.3.579.2 .1258 1990 Unknown [id number] 2.16840.1.032214.3.579.2 .1258 1990 Unknown [id number] 2.16.840.1.450437.3.579.2 .1259 1959 Unknown [id number] 2.16840.1.874287.19 Unknown [id number] 2.16840.1.754608.3.579.2 .531 Unknown [id number] 2.16.840.1.609712.3.579.2 .531 Worker's Compensation [facility] [id number] Social History Date Type Detail Facility Start: 10-13-2023 End: 09-13-2024 Sex Assigned At [facility] Start: 1990 Sex Assigned At Female [facility] Start: 08-13-2023 End: 05-03-2024 Tobacco smoking [...] [facility] Start: 10-18-2024 Sex Female (finding) [facility] Start: 11-16-2024 [facility] Clinical Notes 08-23-2021 to 08-03-2025 Mary Lou Kearney LPN - 08/03/2025 9:10 AM Margaret Dewitt NP - 07/24/2025 11:20 AM Joselito [...] nursing note reviewed. Exam conducted with a digital strategy specialist present. Vitals: Estimated body mass index is 36.46 kg/m as calculated from the following: Height as of 01/06/24: 5' 7 . Weight as of this encounter: 232 lb 12.8 oz. BP: 120/76 Patient's last menstrual period was 11/02/2024. ASSESSMENT & PLAN ICD-10-CM 1. Third trimester ([facility]) Z34.93 POCT urinalysis dipstick manually resulted 2. 39 weeks gestation of ([facility]) Z3A.39 POCT urinalysis dipstick manually resulted Patient presents today for a routine obstetrics appointment. Patient is currently 39w1d with a Estimated Date of Delivery: 08/09/25. Patient to have IOL on 08/08/25 0600. RTC for appointment. Documented by Mary Lou Kearney LPN on behalf of: Ángel Buckner DO documented in this encounter [facility] 07-24-2025 History of Presen t illness Narrative [...] nursing note reviewed. Exam conducted with a digital strategy specialist present. Vitals: Estimated body mass index is 36.57 kg/m as calculated from the following: Height as of 01/06/24: 5' 7 . Weight as of this encounter: 233 lb 8 oz. BP: 118/74 Patient's last menstrual period was 11/02/2024. ASSESSMENT & PLAN ICD-10-CM 1. Third trimester ([facility]) Z34.93 POCT urinalysis dipstick manually resulted 2. 37 weeks gestation of ([facility]) Z3A.37 Return OB: Patient presents today [...] week for routine OB appointment. Documented by Esdon Dewitt NP on behalf of: Ángel Buckner DO documented in this encounter [facility] 07-17-2025 History of Presen t illness Narrative [...] nursing note reviewed. Exam conducted with a digital strategy specialist present. Vitals: Estimated body mass index is 36.77 kg/m as calculated from the following: Height as of 01/06/24: 5' 7 . Weight as of this encounter: 234 lb 12.8 oz. BP: 118/70 Patient's last menstrual period was 11/02/2024. ASSESSMENT & PLAN ICD-10-CM 1. 36 weeks gestation of ([facility]) Z3A.36 POCT urinalysis dipstick manually resulted 2. Third trimester ([facility]) Z34.93 POCT urinalysis dipstick manually resulted 3. History of miscarriage Z87.59 4. Multigravida of advanced maternal age in third trimester ([facility]) O09.523 5. Excessive growth affecting management of in third trimester, single or unspecified fetus ([facility]) O36.63X0 Patient presents today for a routine obstetrics appointment. Patient is currently 36w5d with a Estimated Date of Delivery: 08/09/25. Pelvic exam performed and patient is currently 2cm and 70% effaced. Patient to return to clinic in 1 week. Documented by Mary Lou Kearney LPN on behalf of: Ángel Buckner DO documented in this encounter [facility] 07-10-2025 History of Presen t illness Narrative [...] ASSESSMENT & PLAN ICD-10-CM 1. Third trimester ([facility]) Z34.93 CULTURE, GROUP B STREP WITH SUSCEPTIBLITY CULTURE, GROUP B STREP WITH SUSCEPTIBLITY 2. 35 weeks gestation of ([facility]) Z3A.35 POCT urinalysis dipstick manually resulted Return [...] Buckner DO documented in this encounter [facility] 06-26-2025 History of Presen t illness Narrative [...] nursing note reviewed. Exam conducted with a digital strategy specialist present. Vitals: Estimated body mass index is 36.2 kg/m as calculated from the following: Height as of 24: 5' 7 . Weight as of this encounter: 231 lb 1.9 oz. BP: 116/74 Patient's last menstrual period was 11/02/2024. ASSESSMENT & PLAN (Z34.93) Third trimester ([facility]) Plan: POCT urinalysis dipstick manually resulted (Z3A.33) 33 weeks gestation of ([facility]) Plan: POCT urinalysis dipstick manually resulted Patient presents today for a routine obstetrics appointment. Patient is currently 33w5d with a Estimated Date of Delivery: 08/09/25. Patient to return to clinic in 2 weeks for GBS. Documented by Mary Lou Kearney LPN on behalf of: Ángel Buckner DO documented in this encounter [facility] 06-12-2025 History of Presen t illness Narrative [...] in third trimester, single or unspecified fetus ([facility]) O36.63X0 US OB follow up transabdominal approach 2. 31 weeks gestation of ([facility]) Z3A.31 POCT urinalysis dipstick manually resulted 3. Third trimester ([facility]) Z34.93 POCT urinalysis dipstick manually resulted 4. History of miscarriage Z87.59 5. Multigravida of advanced maternal age in third trimester ([facility]) O09.523 Return OB: Patient presents [...] Buckner DO documented in this encounter [facility] 05-30-2025 History of Presen t illness Narrative [...] nursing note reviewed. Exam conducted with a digital strategy specialist present. Vitals: Estimated body mass index is 35.52 kg/m as calculated from the following: Height as of 01/06/24: 5' 7 . Weight as of this encounter: 226 lb 12.8 oz. BP: 120/78 Patient's last menstrual period was 11/02/2024. ASSESSMENT & PLAN ICD-10-CM 1. Third trimester ([facility]) Z34.93 POCT urinalysis dipstick manually resulted 2. 29 weeks gestation of ([facility]) Z3A.29 POCT urinalysis dipstick manually resulted 3. History of miscarriage Z87.59 4. Multigravida of advanced maternal age in third trimester ([facility]) O09.523 Return OB: Patient presents [...] Buckner DO documented in this encounter [facility] 05-01-2025 History of Presen t illness Narrative [...] nursing note reviewed. Exam conducted with a digital strategy specialist present. Vitals: Estimated body mass index is [...] Dewitt NP documented in this encounter [facility] 03-30-2025 History of Presen t illness Narrative [...] nursing note reviewed. Exam conducted with a digital strategy specialist present. Vitals: Estimated body mass index is [...] Buckner DO documented in this encounter [facility] 03-02-2025 History of Presen t illness Narrative [...] nursing note reviewed. Exam conducted with a digital strategy specialist present. Vitals: Estimated body mass index is [...] obtained without difficulty and [facility]. Orders Placed This [...] ALEXANDER Gramajo documented in this encounter [facility] 02-02-2025 History of Presen t illness Narrative [...] Buckner DO documented in this encounter [facility] 09-13-2024 History of Presen t illness Narrative [...] nursing note reviewed. Exam conducted with a digital strategy specialist present. Vitals: Estimated body mass index is [...] Buckner DO documented in this encounter [facility] 01-06-2024 History of Presen t illness Narrative [...] Diagnosis Date Fatigue GARTH (generalized anxiety disorder) ([facility]) Hyperlipidemia ([facility]) Paronychia, finger Family History Problem Relation [...] ALEXANDER Gramajo documented in this encounter [facility] 10-02-2023 Evaluation note Encounter Date Diagnosis Assessment [...] prior to bedtime. Weight loss. Pepcid PRN [facility] Other 2023 Evaluation note* Encounter Date Diagnosis Assessment Notes Treatment Notes Treatment Clinical Notes Dec, Nasal turbinate hypertrophy (ICD-10 - J34.3) FLonase, saline NS, Sudafed and avoid use of Afin. Refer to ENT. Dec, Nonallergic vasomotor rhinitis (ICD-10 - J30.0) Prednisone tapered over 8 days. Claritin as needed. [facility] Other 02-13-2023 Evaluation note* Encounter Date Diagnosis Assessment Notes Treatment Notes Treatment Clinical Notes Dec, Acute non-recurrent maxillary sinusitis (ICD-10 - J01.00) [facility] Other 01-25-2023 Evaluation note* Encounter Date Diagnosis Assessment Notes Treatment Notes Treatment Clinical Notes Nov, Acute non-recurrent maxillary sinusitis (ICD-10 - J01.00) Instructed to use Robitussin or Mucinex for cough, saline or Flonase NS for congestion, Tylenol for pain and fever. [facility] Other 10-28-2022 Evaluation note* Encounter Date Diagnosis [...] (suspected) exposure to covid-19 (ICD-10 - Z20.822) [facility] Other 10-27-2022 Evaluation note* Encounter Date Diagnosis Assessment Notes Treatment Notes Treatment Clinical Notes Aug, Encounter for immunization (ICD-10 - Z23) Patient presents today for COVID-19 vaccination booster. Patient pre-vaccination form answers reviewed. Patient denies current illness or allergic reaction to any component of a COVD-19 vaccine. Patient provided with copy of current EUA. [facility] Other 02-02-2022 Evaluation note* Encounter Date Diagnosis [...] Patient care instructions given in writting by [facility] document. Additional time spent conducting pre-visit phone call, screening for symptoms, instructions on social distancing, application and removal of PPE, and cleaning of examination room, equipment and supplies was preformed. Patient education given for testing methodology and results. Patient care instructions given in writting by [facility] document. [facility] Other 01-28-2022 Evaluation note* Encounter Date Diagnosis [...] Patient care instructions given in writting by [facility] document. [facility] Other 09-24-2021 Evaluation note* Encounter Date Diagnosis Assessment Notes Treatment Notes Treatment Clinical Notes Jul, Encounter for immunization (ICD-10 - Z23) Patient presents for COVID-19 vaccination #2. Pre-screening form answers evaluated with patient. Patient denies current illness or allergic reaction to component of COVID-19 vaccine. Patient provided with current copy of EUA. [employer] Other Evaluation noteNo assessment information available [facility] Work Phone: Evaluation noteNo [facility] Other Evaluation note* Diagnosis Encounter for weight management Hormone disorder Unspecified endocrine disorder 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 [facility] Diagnosis Well woman exam with routine gynecological exam Routine gynecological examination [facility] Diagnosis Onset Date Resolution Status Admit Date Hypercholesteremia acute Novemb er 2023 11:13am Wellness examination acute Nove mber 2023 11:13am [facility] Work Phone: Evaluation note* Diagnosis 13 [...] know Surgical history Hospitalization History see above [facility] Other History general Narrative - Reported* Type Description Date Medical History Child X2 Natural Surgical History No Surgical history information Hospitalization History see above [facility] Other History general Narrative - Reported* Type Description Date Medical History Child X2 Natural Medical History Body mass index (BMI) of 25.0 to 29.9 Medical History Fatigue Medical History Hyperlipidemia, group A Medical History GARTH (generalized anxiety disorde r) Surgical History No know Surgical history Hospitalization History No know Hospitalization history [facility] Other Chief Complaint and Reason for Visit [...] Nasal turbinate hype rtrophy (J34.3) Referral Organization [facility]aran Referring Provider First Name Robles Referring Provider Last Name Nela Referring Provider Specialty Internal Me dicine Referred Organization [facility] Referred Provider Robles Hernandez Referred Address ,[place], [place],[address] Referred Provider Specialty Otolaryngolo gy Referral Priority Routine Referral Appointment Date 2023-02-04 General Notes Rosangela Cruz 09:25:33 AM >received today, notes locked, insurance card attached, referral faxed Rosangela Cruz 01/29/2023 12:42:25 PM >Shannan at Dr. Rodriges office requested referral be faxed again to [phone]. done! 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 Specialty Start Date End Date Robles Charles MD [address] [place] [address] PCP - General Internal Medicine 07/30/23 Team [...] August 29, 2024 End: August 29, 2024 Threshing Machine Operator Relationship Specialty [place] [address] [place] [phone] PCP - General Internal Medicine 07/30/23 Deisy Villar PA [address] [place] [address] [place] [address] PCP - Medical [place] [employer] 11/30/23 11/29/99 Threshing Machine Operator Relationship Specialty Start Date End Date Robles Charles MD [address] [place] [facility] [place] [phone] PCP - General Internal Medicine 07/30/23 Deisy Villar PA [address] [place] [address] [place] [address] PCP - Medical [place] [employer] 11/30/23 11/29/99 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 Machine 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 Relationship Specialty Start Date End Date Robles Charles MD [address] [place] [facility] [place] [phone] PCP - General Internal Medicine 07/30/23 Deisy Villar PA [address] [place] [address] [place] [address] PCP - Medical [place] [employer] 11/30/23 11/29/99 Team Status: Inactive Member Role Status Dates Robles Charles DO Primary Care Provider Active Start: September 22, 2024 End: September 22, 2024 Delano Francis - [facility] , DO [facility] Attending Provider Active Start: September 22, 2024 End: September 22, 2024 Team Status: Active Member Role Status Dates Robles Charles DO Primary Care Provide r, Attending Provider Active Start: October 14, 2024 Team Status: Inactive Member Role Status Dates Robles Charles DO Primary Care Provide r, Attending Provider Active Start: October 18, 2024 End: October 18, 2024 Threshing Machine Operator Relationship Specialty Start Date End Date Robles Charles MD [address] [place] [facility] [place] [phone] PCP - General Internal Medicine 07/30/23 Deisy Villar PA [address] [place] [address] [place] [address] PCP - Medical [place] [employer] 11/30/23 11/29/99 Threshing Machine Operator Relationship Specialty Start Date End Date Robles Charles MD [address] [place] [address] PCP - General Internal Medicine 07/30/23 Deisy Villar PA [address] [place] [address] [place] [address] PCP - Medical [place] [employer] 11/30/23 11/29/99 Threshing Machine Operator Relationship Specialty Start Date End Date Robles Charles MD [address] [place] [phone] PCP - General Internal Medicine 07/30/23 Deisy Villar PA [address] [place] [address] [place] [address] PCP - Medical [place] [employer] 11/30/23 11/29/99 Threshing Machine Operator Relationship Specialty Start Date End Date Robles Charles MD [address] [place] [phone] PCP - General Internal Medicine 07/30/23 Deisy Villar PA [address] [place] [address] [place] [address] PCP - Medical [place] [employer] 11/30/23 11/29/99 Threshing Machine Operator Relationship Specialty Start Date End Date Robles Charles MD PCP - General Internal Medicine 07/30/23 Deisy Villar PA [address] [place] [address] Dr [place], [place] [phone] PCP - Medical [place] [employer] 11/30/23 11/29/99 Threshing Machine Operator Relationship Specialty Start Date End Date Robles Charles DO PCP - General Internal Medicine 07/30/23 Deisy Villar PA [address] [place] [address] [place] [address] PCP - Medical [place] [employer] 11/30/23 11/29/99 Threshing Machine Operator Relationship Specialty Start Date End Date Robles Charles DO [address] [facility] [place] [phone] PCP - General Internal Medicine 07/30/23 Deisy Villar PA [address] [place] [address] Dr [place], [place] [phone] PCP - Medical [place] [employer] 11/30/23 11/29/99 Threshing Machine Operator Relationship Specialty Start Date End Date Robles Charles DO [address] [place] [facility] [place] [address] PCP - General Internal Medicine 07/30/23 Deisy Villar PA [address] [place] [address] Dr [place], [place] [phone] PCP - Medical [place] [employer] 11/30/23 11/29/99 Threshing Machine Operator Relationship Specialty Start Date End Date Robles Charles DO [address] [place] [facility] [place] [address] PCP - General Internal Medicine 07/30/23 Deisy Villar PA [address] [place] [address] Tosin Ramachandran, [place] [id number] PCP - Medical [place] [employer] 11/30/23 11/29/99 Threshing Machine Operator Relationship Specialty Start Date End Date Robles Charles DO [address] [place] [phone] PCP - General Internal Medicine 07/30/23 Deisy Villar PA [address] [place] [address] Tosin Ramachandran, [place] [phone] PCP - Medical [place] [employer] 11/30/23 11/29/99 Threshing Machine Operator Relationship Specialty Start Date End Date Robles Charles DO [address] [place] [phone] PCP - General Internal Medicine 07/30/23 Deisy Villar PA [address] [place] [address] Tosin Ramachandran, [facility] [address] PCP - Medical [place] [employer] 11/30/23 11/29/99 Threshing Machine Operator Relationship Specialty Start Date End Date Robles Charles DO [address] [place] [phone] PCP - General Internal Medicine 07/30/23 Deisy Villar PA [address] [place], [place] [address]justus Ramachandran, [place] [phone] PCP - Medical [place] [employer] 11/30/23 11/29/99 Threshing Machine Operator Relationship Specialty Start Date End Date Robles Charles DO [address] [place] [address] PCP - General Internal Medicine 07/30/23 Deisy Villar PA [address] [place] [address] Dr [place], [place] [phone] PCP - Medical [place] [employer] 11/30/23 11/29/99 Threshing Machine Operator Relationship Specialty Start Date End Date Robles Charles DO [address] [place] [phone] PCP - General Internal Medicine 07/30/23 Deisy Villar PA [address] [place] [address] [place] [address] PCP - Medical [place] [employer] 11/30/23 11/29/99 Threshing Machine Operator Relationship Specialty Start Date End Date Robles Charles DO [address] [place] [phone] PCP - General Internal Medicine 07/30/23 Deisy Villar PA [address] [place] [address] [place] [address] PCP - Medical [place] [employer] 11/30/23 11/29/99 Threshing Machine Operator Relationship Specialty Start Date End Date Robles Charles DO [address] [place] [phone] PCP - General Internal Medicine 07/30/23 Deisy Villar PA [address] [place] [address] [place] [address] PCP - Medical [place] [employer] 11/30/23 11/29/99 Goals (unrecognized section and content) Goals may be documented in a n alternate section INFORMATION SOURCE (unrecogn ized section and content) DATE CREATED AUTHOR 09/02/2022 [facility] DATE CREATED AUTHOR AUTHOR'S ORGANIZ ATION 09/23/2024 [facility] DATE CREATED AUTHOR AUTHOR'S ORGANIZ ATION 08/05/2025 [facility] EPIC FOR RECORDS [...] BE BASED ON THE PRIMARY CLINICAL RECORDS. [facility] [email or web address] provides no warranty or guarantee of the accuracy or completeness of information in this document.
[2025-08-07 21:24] LABS: Hematocrit 35.6 % (36.0-48.0); Hemoglobin 12.4 g/dL (12.0-16.0); Immature Granulocytes Abs Auto 0.09 10^3/uL (0.00-0.03); Immature Granulocytes Pct Auto 0.7 % (0.0-0.5); Lymphocytes Absolute Auto 2.0 10^3/uL (1.2-3.8); Mean Corpuscular HGB Conc 34.8 g/dL (29.9-35.2); Mean Corpuscular Hemoglobin 32.7 pg (26.7-34.0); Mean Corpuscular Volume 93.9 fL (81.0-99.0); Platelet Count 352 10^3/uL (150-450); Red Blood Count 3.79 10^6/uL (4.20-5.40); White Blood Count 12.5 10^3/uL (4.0-11.0)
[2025-08-07 21:25] LABS: Glucose Urine UA NEGATIVE (NEGATIVE)
[2025-08-07 21:42] LABS: Cannabinoid Screen Urine NEGATIVE (NEGATIVE); Methamphetamines Screen Urine NEGATIVE (NEGATIVE); Tricyclic Antidepressant Urine NEGATIVE (NEGATIVE)
[2025-08-07 21:46] LABS: Cast Seen? NONE SEEN #/LPF (NONE SEEN); Crystals Seen? None Seen #/HPF (None Seen); Urine Culture Indicated YES-LC
[2025-08-07] MEDS: LIDOCAINE HCL 1% 200 MG/20 ML MDV INJ (22:00)
[2025-08-07] MEDS: OXYTOCIN/0.9 % SODIUM CHLORIDE 20 UNITS/1,000 ML PLAST..BAG 125 UNIT IV (22:06)
[2025-08-07 22:19] VITALS: BP 122/96; PULSE 69
--- NOTE | 2025-08-07 22:19 | PM.OBPRCVD ---
Procedure Intrapartal events: None Induction method: per pitocin protocol Delivery augmentation: rupture of membranes and pitocin Delivery monitor: external FHT and external uterine Route of delivery: Episiotomy Description: midline L&D Laceration Description: perineal - 2nd degree Delivery repair: Vicryl Estimated blood loss (mL): 300 Anesthesia type: None Disposition: floor Delivery date: 08/07/25 Gender: female presentation: vertex Placental delivery description: Spontaneous cord description: 3 Vessels
[2025-08-07 22:34] VITALS: BP 109/58; PULSE 65
[2025-08-07 22:49] VITALS: BP 110/64; PULSE 77
[2025-08-07] MEDS: IBUPROFEN 600 MG TABLET PO (22:52)
[2025-08-07 23:04] VITALS: BP 133/66; PULSE 64
[2025-08-07 23:19] VITALS: BP 121/68; PULSE 53
[2025-08-07 23:49] VITALS: BP 123/58; PULSE 62
[2025-08-08] MEDS: GLYCERIN/WITCH HAZEL PADS 1 PAD TOPICAL
[2025-08-08] MEDS: BENZOCAINE/MENTHOL 85 GRAM SPRAY BOTTLE 1 APPLIC TOPICAL
[2025-08-08 00:04] VITALS: BP 118/59; PULSE 60
[2025-08-08 00:19] VITALS: BP 118/61; PULSE 60
[2025-08-08] MEDS: ACETAMINOPHEN 325 MG TABLET 650 MG PO ×4 (03:10→21:20)
[2025-08-08] MEDS: IBUPROFEN 600 MG TABLET PO ×3 (06:39→18:32)
[2025-08-08 06:57] LABS: Hematocrit 32.6 % (36.0-48.0); Hemoglobin 11.2 g/dL (12.0-16.0); Immature Granulocytes Abs Auto 0.11 10^3/uL (0.00-0.03); Immature Granulocytes Pct Auto 0.8 % (0.0-0.5); Lymphocytes Absolute Auto 1.5 10^3/uL (1.2-3.8); Mean Corpuscular HGB Conc 34.4 g/dL (29.9-35.2); Mean Corpuscular Hemoglobin 32.6 pg (26.7-34.0); Mean Corpuscular Volume 94.8 fL (81.0-99.0); Platelet Count 312 10^3/uL (150-450); Red Blood Count 3.44 10^6/uL (4.20-5.40); White Blood Count 14.5 10^3/uL (4.0-11.0)
[2025-08-08] MEDS: DOCUSATE SODIUM 100 MG CAPSULE PO ×2 (09:14→20:22)
[2025-08-08 09:16] VITALS: BP 123/61; PULSE 68
[2025-08-08 16:03] VITALS: BP 126/72; PULSE 67
[2025-08-08] MEDS: CALCIUM CARBONATE 500 MG (200MG ELEMENTAL) TAB CHEW PO (20:22)
[2025-08-08 23:01] VITALS: TEMP 35.3
[2025-08-08 23:02] VITALS: BP 103/58; PULSE 52
[2025-08-09] MEDS: IBUPROFEN 600 MG TABLET PO ×2 (00:26→06:50)
[2025-08-09] MEDS: ACETAMINOPHEN 325 MG TABLET 650 MG PO ×2 (03:23→10:48)
[2025-08-09] MEDS: GLYCERIN/WITCH HAZEL PADS 1 PAD TOPICAL (06:50)
[2025-08-09 08:31] VITALS: BP 114/56; PULSE 60; TEMP 36.5
[2025-08-09] MEDS: DOCUSATE SODIUM 100 MG CAPSULE PO (08:32)
--- NOTE | 2025-08-09 11:08 | PC.NURSE ---
Pt declines full review of teaching topics. Information for referral for pediatric dentist evaluation of tongue tie. Declines follow up visit and will call when needed.
--- NOTE | 2025-08-09 11:42 | PM.OBDS ---
DS: Providers Provider Date of admission: 08/07/25 20:44 Primary care physician: Robles Charles DO Admitting clinician: Ángel Buckner Attending physician on admission: Ángel Buckner Attending physician on discharge: TANJA CHURCHILL Discharging clinician: TANJA CHURCHILL Anticipated date of discharge: 08/09/25 DS: Diagnosis Discharge Diagnosis (1) Spontaneous vaginal delivery: Assessment and plan: Continue vitamins while breast feeding continue baby aspirin for a month OB - DS: Summary Hospital Course Hospital Course: Patient was admitted in labor and underwent a spontaneous vaginal delivery over a second degree laceration which was repaired delivering an 8 pound 3 ounce female with apgars at 9 and 9 at 1 and 5 minutes. Hospital course was uncomplicated. Complications complications: none Infant Delivery method: spontaneous vaginal delivery Gender: female Discharge plan: home Status at Discharge Functional status at discharge: independent ambulation Time Spent with Patient Time attestation: Total time spent providing and/or coordinating discharge services: Time spent: less than 30 minutes Exam Constitutional Vital Signs, click to edit/add: Last Vital Signs Temp 97.7 F 08/09/25 08:31 Pulse 60 08/09/25 08:31 BP 114/56 08/09/25 08:31 O2 Del Method Room Air 08/09/25 08:31 Documenting provider has reviewed patient's vital signs: yes Common normals: no apparent distress General appearance: cooperative and comfortable HENMT Common normals: normocephalic Eye Common normals: EOMs intact bilaterally Respiratory Common normals: normal respiratory effort Effort & inspection: able to speak in complete sentences Cardio Common normals: regular rate GI Common normals: soft to palpation and non-tender Other: fundus firm below umbilicus Back & Pelvis Common normals: no CVA tenderness Extremity Common normals: no pedal edema Neuro Common normals: oriented x3 Cranial nerves: CN normal except as noted Psych Common normals: mental status grossly normal and thought process normal Appearance: grossly normal Attitude: calm Activity/motor behavior: appropriate eye contact Speech: normal speech Discharge Plan Discharge Disposition: Home, Self-Care Condition: Good Assessment: stable Discharge Medications: New ibuprofen 600 mg Tablet 600 mg PO Q6H PRN (Reason: Moderate Pain) Qty: 30 0RF Continued omeprazole 40 mg capsule,delayed release(DR/EC) 40 mg PO DAILY Activity: increase activity as tolerated Diet: regular diet Print Language: Mauritanian Forms: Portal Instructions Follow Up Appointments: Dr. Leanne Buckner
--- OUTSIDE RECORDS SUMMARY | 2025-08-14 05:53 | XMS_ITS | Encounter Summary ---
Author Organization [facility] Address [address] [place] [address] Care Team Providers Care Emergency Department Physician Name Role Phone MelvinRobles Justus CRESPO Primary Care Provider [phone] Deisy Haji Unavailable Encounter Details Date Type Department Care Team (Late Contact Info) Description 02/02/2025 Abstract [facility] [place] [facility] [address] [facility] [place] [address] Ángel Buckner DO [address] [facility] [address] Arash [place], [facility]11 Social History Tobacco Use Types [...] EDT Office Visit [facility] [place] [facility] [address] [place] [phone] Ángel Buckner DO [address] [facility] [address] [place], [place] [phone] documented as of this encounter Visit Diagnoses Not on filedocumented in this encounter Care Teams Emergency Department Physician Relationship Specialty Start Date End Date Robles Charles DO [address] [place] [address] PCP - General Internal Medicine 07/30/23 Deisy Haji PA [address] [facility] [address] [place], [place] [phone] PCP - Medical [place] [employer] 11/30/23 11/29/99 documented as of this encounter
--- OUTSIDE RECORDS SUMMARY | 2025-08-14 05:53 | XMS_ITS | Encounter Summary ---
Author Organization [facility] Address [address] [place] [address] Care Team Providers Care Tow Car Driver Name Role Phone MelvinRobles Justus CRESPO Primary Care Provider [phone] Deisy Haji Unavailable Encounter Details Date Type Department Care Team (Late st Contact Info) Description 08/07/2025 Clinisync Result Encounter [facility] External Department Unsolicited Ángel Buckner DO [address] [facility] [place] [address] Social History Tobacco Use Types [...] EDT Office Visit [facility]E [facility] O[facility] [address] [phone] Ángel Buckner DO [address] [facility] [place] [address] documented as of this encounter Procedures Procedure Name Priority Date/Time Associated Diagnosis Comments [facility] URINE MICROSCOPIC ONLY Routine 08/07/2025 9:10 PM EDT [facility] UA (CLEAN/CATCH) PHYSICAL THERAPY MANAGER/MICRO IF IND. Routine 08/07/2025 9:10 PM EDT [...] EDT Ángel Lopezo DO [facility] Final Result [facility] * (ABNORMAL) ALL CBC WITH AUTO [...] CLIN[facility]NC [facility] * (ABNORMAL) [facility] UA (CLEAN/CATCH) PHYSICAL THERAPY MANAGER/MICRO IF IND. (08/07/2025 9:10 PM EDT) COLOR [...] on filedocumented in this encounter Care Teams Tow Car Driver Relationship Specialty Start Date End Date Robles Charles DO [address] [facility] [place] [address] PCP - General Internal Medicine 07/30/23 Deisy Haji PA [address] [place] [address] [place] [address] PCP - Medical [place] [employer] 11/30/23 11/29/99 documented as of this encounter
--- OUTSIDE RECORDS SUMMARY | 2025-08-14 05:53 | XMS_ITS | Clinical Summary ---
Author Organization [facility] Address [address] [place] [address] Care Team Providers Care Embroidery Operator Name Role Phone MelvinRobles Justus CRESPO Primary Care Provider [phone] Deisy Haji Unavailable Allergies Active Allergy Reactions [...] 3:00 PM EDT Routine NOMS Natasha OBGYManuel [address] [place] [address] [place] [address] Le Buckner DO Third trimester ([facility]); 39 weeks gestation of ([facility]) 08/07/2025 Clinisync Result Encounter NOMS External Department Unsolicited Le Buckner, DO 08/07/2025 Bamboo flowsheet [facility] Natasha [facility] [place] [address] Le Buckner, DO 08/05/2025 Clinisync Result Encounter NOMS External Department Unsolicited Le Buckner, DO 08/03/2025 9:10 AM EDT Routine NOMS Natasha FROSTGYManuel [place] [address] Le Buckner, DO Third trimester ([facility]); 39 weeks gestation of ([facility]) 08/03/2025 Bamboo flowsheet NOMS Natasha [place] [address] Le Buckner, DO 07/29/2025 Clinisync Result Encounter NOMS External Department Unsolicited Le Buckner, DO 07/24/2025 11:20 AM EDT Routine [facility] Natasha Dean [facility] [place] [address] Le Buckner, DO Third trimester ([facility]); 37 weeks gestation of ([facility]) 07/24/2025 Bamboo flowsheet NOM[facility] Natasha Dean [facility] [place] [address] Le Buckner, DO 07/22/2025 Clinisync Result Encounter NOMS External Department Unsolicited Le Buckner, DO 07/17/2025 2:50 PM EDT [place] [address] Le Buckner, DO 36 weeks gestation of ([facility]); Third trimester ([facility]); History of miscarriage; Multigravida of advanced maternal age in third trimester ([facility]); Excessive growth affecting management of in third trimester, single or unspecified fetus ([facility]) 07/17/2025 Bamboo [place] [address] Le Buckner, DO 07/15/2025 Clinisync Result Encounter NOMS External Department Unsolicited Le Buckner, DO 07/10/2025 1:50 PM EDT [place] [phone] Le Buckner, DO Third trimester ([facility]); 35 weeks gestation of ([facility]) 07/10/2025 Bamboo [place] [address] Le Buckner, DO 07/08/2025 Clinisync Result Encounter NOMS External Department Unsolicited Le Buckner, DO 07/01/2025 Clinisync Result Encounter NOMS External Department Unsolicited Le Buckner, DO 06/26/2025 1:10 PM EDT [place] [address] Le Buckner, Third trimester ([facility]); 33 weeks gestation of ([facility]) 06/26/2025 11:30 AM EDT Ancillary [place] [address] Excessive growth affecting management of in third trimester, single or unspecified fetus ([facility]) 06/24/2025 Clinisync Result Encounter NOMS External Department Unsolicited Le Buckner, DO 06/17/2025 Clinisync Result Encounter NOMS External Department Unsolicited Le Buckner, DO 06/12/2025 2:10 PM EDT [place] [address] Le Buckner DO Excessive growth affecting management of in third trimester, single or unspecified fetus ([facility]) (Primary Dx); 31 weeks gestation of ([facility]); Third trimester ([facility]); History of miscarriage; Multigravida of advanced maternal age in third trimester ([facility]) 06/12/2025 Bamboo flowsheet [facility] Natasha Dean [facility] [place] [address] Le Buckner DO 06/10/2025 Clinisync Result Encounter NOMS External Department Unsolicited Le Buckner, 06/03/2025 Clinisync Result Encounter NOMS External Department Unsolicited Le Buckner, 05/30/2025 8:50 AM EDT [place] [address] Le Buckner DO Third trimester ([facility] 29 weeks gestation of ([facility]); History of miscarriage; Multigravida of advanced maternal age in third trimester ([facility]) 05/30/2025 Bamboo [place] [address] Le Buckner DO from Last 3 Months Family History Medical [...] EDT Office Visit NOMSheree [place] OBGYN [address] [place] [address] Le Buckner DO [address] [facility] [place] [address] Health Maintenance Due Date Last Done Comments Influenza Vaccine (#1) 2025 09/15/2023 Pap Smear 03/02/2028 03/02/2025, 09/13/2024, 05/31 Cervical Cancer Screening 09/13/2029 HPV/Cotest 09/13/2029 Procedures Procedure Name Priority Date/Time Associated Diagnosis Comments ALL CBC WITH AUTO DIFF Routine 6:39 AM EDT [facility] URINE MICROSCOPIC ONLY Routine 08/07/2025 9:10 PM EDT TB DRUG SCREEN RAPID (URINE) Routine 08/07/2025 9:10 PM EDT ALL CBC WITH AUTO DIFF Routine 9:10 PM EDT TB UA (CLEAN/CATCH) PATIENT TRANSITION SPECIALIST/MICRO IF IND. Routine 08/07/2025 9:10 PM EDT POCT URINALYSIS DIPSTICK Routine 08/07/2025 3:41 PM EDT Third trimester ([facility]) US OB BPP W NON-STRESS 08/05/2025 9:03 AM EDT POCT URINALYSIS DIPSTICK Routine 08/03/2025 9:37 AM EDT Third trimester ([facility]) 39 weeks gestation of ([facility]) US OB BPP W NON-STRESS 07/29/2025 11:10 AM EDT POCT URINALYSIS DIPSTICK Routine 07/24/2025 11:38 AM EDT Third trimester ([facility]) US OB BPP W NON-STRESS 07/22/2025 5:02 PM EDT POCT URINALYSIS DIPSTICK Routine 07/17/2025 3:05 PM EDT 36 weeks gestation of ([facility]) Third trimester ([facility]) US OB BPP W NON-STRESS 07/15/2025 9:18 AM EDT POCT URINALYSIS DIPSTICK Routine 07/10/2025 2:03 PM EDT 35 weeks gestation of ([facility]) CULTURE, GROUP B STREP WITH SUSCEPTIBLITY Routine 07/10/2025 1:45 PM EDT Third trimester ([facility]) US OB BPP W NON-STRESS 07/08/2025 9:19 AM EDT US OB BPP W NON-STRESS 07/01/2025 8:07 PM EDT POCT URINALYSIS DIPSTICK Routine 06/26/2025 1:26 PM EDT Third trimester ([facility]) 33 weeks gestation of ([facility]) US OB FOLLOW UP TRANSABDOMINAL APPROACH Routine 06/26/2025 11:22 AM EDT Excessive growth affecting management of in third trimester, single or unspecified fetus ([facility]) US OB BPP W NON-STRESS 06/24/2025 9:34 AM EDT US OB BPP W NON-STRESS 06/17/2025 9:20 AM EDT US OB BPP W NON-STRESS 06/10/2025 6:38 PM EDT US OB BPP W NON-STRESS 06/03/2025 2:23 PM EDT POCT URINALYSIS DIPSTICK Routine 05/30/2025 9:17 AM EDT Third trimester ([facility]) 29 weeks gestation of ([facility]) PAP SMEAR Routine 03/02/2025 12:00 AM EDT [...] CLINISYNC - 08/08/2025 7:04 AM EDT Le Buckner DO CLINISYNC Final Result [facility] * (ABNORMAL) TB URINE MICROSCOPIC ONLY (08/07/2025 9:10 PM EDT) [...] Narrative CLINISYNC - 08/07/2025 9:46 PM EDT Le Sita DO CLINISYNC Final Result Performing Organization Address [facility]/State/ZIP Co de Phone Number CLINISYNC [facility] * (ABNORMAL) [facility] UA (CLEAN/CATCH) PATIENT TRANSITION SPECIALIST/MICRO IF IND. (08/07/2025 9:10 PM EDT) COLOR [...] Narrative CLINISYNC - 08/07/2025 9:46 PM EDT Le Hartleyzio DO CLINISYNC Final Result Performing Organization Address [facility] Co de Phone Number [facility] * [facility] DRUG SCREEN RAPID (URINE) [...] Narrative CLINISYNC - 08/07/2025 9:42 PM EDT Le Sita DO CLINISYNC Final Result [facility] * (ABNORMAL) POCT urinalysis dipstick manually resulted [...] - Positive Urine 08/07/2025 3:41 PM EDT Le Sita DO POINT OF CARE TEST ENTER/EDIT OR DERABLES Final Result * US OB BPP W NON-STRESS (08/05/2025 9:03 AM EDT) Only the most recent of10 resultswithin the time period is included. Anatomical Region Laterality Modality Other 08/05/2025 9:03 AM EDT Narrative 08/05/2025 9:05 AM EDT [place] [id number] Ultrasound Report Signed Patient: PHILLIP HERNANDEZ MR#: [id number] : 1990 Acct:[id number] Age/Sex: 35 / F ADM Date: 08/05/25 Loc: [facility] 250-[address]: Le Buckner D.O. Ordering Physician: Le Buckner D.O. Date of Service: 08/05/25 Procedure(s): US OB BPP w non-stress Accession Number(s): [id number] cc: Robles Charles D.O.; Le Buckner D.O. [place] [id number] Patient Name: PHILLIP HERNANDEZ MRN: [id number] date: 1990 Sex: F Assigned Patient Location: [facility] Current Patient Location: [facility] Accession/Order Number: [id number] Exam Date: 08/05/2025 08:35 Report Date: 08/05/2025 09:03 At the request of: LE BUCKNER DO Procedure: US OB BPP w non-stress Biophysical profile. Reason for exam: History of miscarriage. COMPARISON: 07/29/2025 TECHNIQUE: Transabdominal imaging of the gravid uterus was obtained. FINDINGS: The siding stapler reports a BPP of 8 out of 8. MARTY is normal at 12.6 cm. heart rate 132 bpm. US/US OB BPP w non-stress IMPRESSION: BPP 8 out of 8. Impression dictated by: Justin Mack Jr., D.O. 08/05/2025 9:03 AM Dictation Location: [place] [address] Electronically authenticated by: [id number] Y Date: 08/05/2025 09:03 Dictated By: Justin Mack M.D. Signed By: 08/05/25904 DD/ 2 TD/TT: Business Process Specialist: Procedure Note Radiology, Radiologist, - 08/05/2025 [place] [address] Ultrasound Report Signed Patient: PHILLIP HERNANDEZ LMR#: [id number] : 1990Acct:[id number] Age/Sex: 35 / FADM Date: 08/05/25 Loc: [facility] 250-[address]: Le Buckner D.O. Ordering Physician: Le Buckner D.O. Date of Service: 08/05/25 Procedure(s): US OB BPP w non-stress Accession Number(s): [id number] cc: Robles Charles D.O.; Le Buckner D.O. The [place] [id number] Patient Name: PHILLIP HERNANDEZ MRN: [facility]:[id number] date: 1990 Sex: F Assigned Patient Location: [facility] Current Patient Location: [facility] Accession/Order Number: [id number] Exam Date: 08/05/2025 08:35 Report Date: 08/05/2025 09:03 At the request of: LE BUCKNER DO Procedure: US OB BPP w non-stress Biophysical profile. Reason for exam: History of miscarriage. COMPARISON: 07/29/2025 TECHNIQUE: Transabdominal imaging of the gravid uterus was obtained. FINDINGS: The siding stapler reports a BPP of 8 out of 8. MARTY is normal at12.6 cm. heart rate 132 bpm. US/US OB BPP w non-stress IMPRESSION: BPP 8 out of 8. Impression dictated by: Justin Mack Jr., D.O. 08/05/2025 9:03 AM Dictation Location: [place] [address] Electronically authenticated by: [id number] Y Date: 509:03 Dictated By: Justin Mack M.D. Signed By:08/05/25904 DD/ 0903 TD/TT: Business Process Specialist: us Le Sita DO CLINISYNC IMAGING Final [...] II, MD, PHD at 26-Jun-2025 11:42:39 PM [facility] Procedure Note Evelyne Samuel MD - [...] signed by EVELYNE SAMUEL II, MD, PHD [id number] 11:42:39 PM [facility] us Deisy MUNOZ IMG OB US PROCEDURES Final Resul t * Pap Smear (03/02/2025 12:00 AM EDT) Swab Cervical swab / Unknown us Sita Nurse Noms Bcp Ob LAB CYTOLOGY ORDERABLES Final Result EXTERNAL LAB from Last 3 Months or Most Recently Relevant to Health Maintenance Insurance [employer] Care Teams Embroidery Operator Relationship Specialty Start Date End Date Robles Charles DO [address] [facility] [place] [address] PCP - General Internal Medicine 07/30/23 Deisy Haji PA [address] [place] [address] [place] [address] PCP - Medical [place] [employer] 11/30/23 11/29/99
--- OUTSIDE RECORDS SUMMARY | 2025-08-14 05:53 | XMS_ITS | Encounter Summary ---
Author Organization [facility] Address [address] [place] [address] Care Team Providers Care Emergency Department Director Name Role Phone Melvin Robles Jerome DO Primary Care Provider [phone] Deisy Haji Unavailable Encounter Details Date Type Department Care Team (Late st Contact Info) Description 08/03/2025 Bamboo flowsheet NOMS Natasha OBROSA ISELA [address] [facility] [place] [address] Ángel Buckner DO [address] [facility] [address] [place], [facility]11 Social History Tobacco Use Types Packs/Day [...] EDT Office Visit NOMS Natasha CARRASQUILLO [address] [facility] [place] [address] Ángel Buckner DO [address] [place], [place] [phone] documented as of this encounter Visit Diagnoses Not on filedocumented in this encounter Care Teams Emergency Department Director Relationship Specialty Start Date End Date Robles Charles DO [address] [facility] [place] [address] PCP - General Internal Medicine 07/30/23 Deisy Haji PA [address] [place], [place] [address] PCP - Medical [place] [employer] 11/30/23 11/29/99 documented as of this encounter
--- OUTSIDE RECORDS SUMMARY | 2025-08-14 05:53 | XMS_ITS | Encounter Summary ---
Author Organization [facility] Address [address] [place] [address] Care Team Providers Care Melter Supervisor [employer] Arc Furnace Name Role Phone MelvinRobles Primary Care Provider [phone] Deisy Haji Unavailable Encounter Details Date Type Department Care Team (Late st Contact Info) Description 03/09/2025 Orders Only NOMS Silvina CARRASQUILLO [address] [place] [address] Camille Lawrence LPN [address] [place] [id number] Social History Tobacco Use Types Packs/Day Years [...] EDT Office Visit NOMS Silvina OBGYN [address] [facility] [place] [address] Ángel Buckner DO [address] [place] [address] documented as of this encounter Procedures Procedure Name Priority Date/Time Associated Diagnosis Comments PAP SMEAR Routine 03/02/2025 12:00 AM EDT documented in this encounter Results * Pap Smear (03/02/2025 12:00 AM EDT) Swab Cervical swab / Unknown Sita Nurse Noms Bcp Ob LAB CYTOLOGY ORDERABLES Final Result EXTERNAL LAB documented in this encounter Visit Diagnoses Not on filedocumented in this encounter Care Teams Melter Supervisor Electric [employer] Furnace Relationship Specialty Start Date End Date Robles Charles DO [address] [place] [address] PCP - General Internal Medicine 07/30/23 Deisy Haji PA [address] [facility] [place] [address] PCP - Medical [place] [employer] 11/30/23 11/29/99 documented as of this encounter
--- OUTSIDE RECORDS SUMMARY | 2025-08-14 05:53 | XMS_ITS | Encounter Summary ---
Author Organization [facility] Address [address] [place] [address] Care Team Providers Care Research And Development Specialist Name Role Phone MelvinRobles Justus CRESPO Primary Care Provider [phone] Deisy Haji Unavailable Encounter Details Date Type Department Care Team (Late st Contact Info) Description 08/05/2025 Clinisync Result Encounter NOMS External Department Unsolicited Le Buckner DO [address] [facility] [place] [address] Social History Tobacco Use Types [...] EDT Office Visit NOMS Natasha OBGYN [address] [facility] [place] [address] Le Buckner DO [address] [facility] [place] [address] documented as of this encounter Procedures Procedure Name Priority Date/Time Associated Diagnosis Comments US OB BPP W NON-STRESS 08/05/2025 9:03 AM EDT documented in this encounter Results * US OB BPP W NON-STRESS (08/05/2025 9:03 AM EDT) Anatomical Region Laterality Modality Other 08/05/2025 9:03 AM EDT Narrative 08/05/2025 9:05 AM EDT [address] [address] Ultrasound Report Signed Patient: PHILLIP HERNANDEZ MR#: [id number] : 1990 Acct:[id number] Age/Sex: 35 / F ADM Date: 08/05/25 Loc: [facility] 250-[address]: Le Buckner D.O. Ordering Physician: Le Buckner D.O. Date of Service: 08/05/25 Procedure(s): US OB BPP w non-stress Accession Number(s): [id number] cc: Robles Charles D.O.; Le Buckner D.O. The [address] [address] Patient Name: PHILLIP HERNANDEZ MRN: [id number] date: 1990 Sex: F Assigned Patient Location: [facility] Current Patient Location: [facility] Accession/Order Number: [id number] Exam Date: 08/05/2025 08:35 Report Date: 08/05/2025 09:03 At the request of: LE BUCKNER DO Procedure: US OB BPP w non-stress Biophysical profile. Reason for exam: History of miscarriage. COMPARISON: 07/29/2025 TECHNIQUE: Transabdominal imaging of the gravid uterus was obtained. FINDINGS: The hr associate reports a BPP of 8 out of 8. MARTY is normal at 12.6 cm. heart rate 132 bpm. US/US OB BPP w non-stress IMPRESSION: BPP 8 out of 8. Impression dictated by: Justin Mack Jr., D.O. 08/05/2025 9:03 AM Dictation Location: [place] [address] Electronically authenticated by: [id number] Y Date: 08/05/2025 09:03 Dictated By: Justin Mack M.D. Signed By: 08/05/25904 DD/ 2 TD/TT: Assistant Librarian: Procedure Note Radiology, Radiologist, MD - 08/05/2025 [place] [address] Ultrasound Report Signed Patient: PHILLIP HERNANDEZ R#: [id number] : 1990Acct:[id number] Age/Sex: 35 / FADM Date: 08/05/25 Loc: [facility] 250- Attending Dr: Le Buckner D.O. Ordering Physician: Le Buckner D.O. Date of Service: 08/05/25 Procedure(s): US OB BPP w non-stress Accession Number(s): [id number] cc: Robles Charles D.O.; Le Buckner D.O. The [place] [address] Patient Name: PHILLIP HERNANDEZ MRN: [id number] date: 1990 Sex: F Assigned Patient Location: [facility] Current Patient Location: [facility] Accession/Order Number: [id number] Exam Date: 08/05/2025 08:35 Report Date: 08/05/2025 09:03 At the request of: LE BUCKNER DO Procedure: US OB BPP w non-stress Biophysical profile. Reason for exam: History of miscarriage. COMPARISON: 07/29/2025 TECHNIQUE: Transabdominal imaging of the gravid uterus was obtained. FINDINGS: The hr associate reports a BPP of 8 out of 8. MARTY is normal at12.6 cm. heart rate 132 bpm. US/US OB BPP w non-stress IMPRESSION: BPP 8 out of 8. Impression dictated by: Justin Mack Jr., D.O. 08/05/2025 9:03 AM Dictation Location: [place] Electronically authenticated by: [id number] Y Date: 9:03 Dictated By: Justin Mack M.D. Signed By:08/05/25904 DD/ 2 TD/TT: Assistant Librarian: [facility] IM[facility] Final Result documented in this encounter Visit Diagnoses Not on filedocumented in this encounter Care Teams Research And Development Specialist Relationship Specialty Start Date End Date Robles Charles DO [address] [facility] [place] [address] PCP - General Internal Medicine 07/30/23 Deisy Haji PA [address] [place] [address] [place] [address] PCP - Medical [place] [employer] 11/30/23 11/29/99 documented as of this encounter
--- OUTSIDE RECORDS SUMMARY | 2025-08-14 05:53 | XMS_ITS | Encounter Summary ---
Author Organization [facility] Address [address] [place] [address] Care Team Providers Care Supervisor Parking Lot Name Role Phone MelvinRobles Primary Care Provider [phone] Deisy Haji Unavailable Encounter Details Date Type Department Care Team (Late Contact Info) Description 08/06/2023 Clinisync Result Encounter NOMS External Department Unsolicited Le Buckner DO [address] [place] [address] Social History Tobacco Use [...] EDT Office Visit NOMSheree [place]aur OBGYManuel [address] [facility] [place] [address] Le Buckner DO [address] [place] [address] [phone] (work) documented as of this encounter Procedures Procedure Name Priority Date/Time Associated Diagnosis Comments US OB TRANSVAGINAL 08/06/2023 4: 44 PM EDT documented in this encounter Results * US OB TRANSVAGINAL (08/06/2023 4:44 PM EDT) Anatomical Region Laterality Modality Other 08/06/2023 4:44 PM EDT Narrative 08/06/2023 4:44 [place] [address] Ultrasound Report Signed Patient: Phillip Hernandez MR#: [id number] : 1990 Acct:[id number] Age/Sex: 33 / F ADM Date: 08/06/23 Loc: US Attending Dr: Le Buckner D.O. Ordering Physician: Le Buckner D.O. Date of Service: 08/06/23 Procedure(s): US OB transvaginal Accession Number(s): [id number] cc: Le Buckner D.O.; Physician,Non-Staff MJennifer [address] [address] Patient Name: PHILLIP HERNANDEZ MRN: [id number] date: 1990 Sex: F Assigned Patient Location: US Current Patient Location: US Accession/Order Number: [id number] Exam Date: 08/06/2023 09:32 Report Date: 08/06/2023 [...] M.D. Signed By: 08/06/231646 DD/ 43 TD/TT: Line Service Supervisor: Procedure Note Radiology, Radiologist, - 08/21/2023 [place] [address] Ultrasound Report Signed Patient: Phillip Hernandez LMR#: [id number] : 1990Acct:[id number] Age/Sex: 33 / FADM Date: 08/06/23 Loc: US Attending Dr: Le Buckner D.O. Ordering Physician: Le Buckner D.O. Date of Service: 08/06/23 Procedure(s): US OB transvaginal Accession Number(s): [id number] cc: Le Buckner D.O.; Physician,Non-Staff Lauri The [place] [id number] Patient Name: PHILLIP HERNANDEZ MRN: [id number] date: 1990 Sex: F Assigned Patient Location: US Current Patient Location: US Accession/Order Number: [id number] Exam Date: 08/06/2023 09:32 Report Date: 08/06/2023 [...] YEUNG Date: 08/06/2023 16:44 Dictated By: Nava Yeugn M.D. Signed By:08/06/23 1647 DD/ 1644 TD/TT: Line Service Supervisor: Le Buckner DO [facility]IN[facility] IMAGING Final Result documented in this encounter Visit Diagnoses Not on filedocumented in this encounter Care Teams Supervisor Parking Lot Relationship Specialty Start Date End Date Robles Charles DO [address] [facility] [place] [address] PCP - General Internal Medicine 07/30/23 eDisy Haji PA [address] [facility] [place] [address] PCP - Medical [place] [employer] 11/30/23 11/29/99 documented as of this encounter
--- OUTSIDE RECORDS SUMMARY | 2025-08-14 05:53 | XMS_ITS | Encounter Summary ---
Author Organization [facility] Address [address] [place] [address] Care Team Providers Care Department [employer] Name Role Phone MelvinRobles Justus CRESPO Primary Care Provider [phone] Deisy Haji Unavailable Encounter Details Date Type Department Care Team (Late st Contact Info) Description 08/08/2025 Clinisync Result Encounter [facility] Unsolicited Ángel Buckner DO [address] [place] [address] Social History Tobacco Use Types [...] EDT Office Visit [facility] [address] [place] [address] Ángel Buckner DO [address] [place] [address] documented as of this encounter Procedures [...] us Ángel Sita DO [facility] documented in this encounter Visit Diagnoses Not on filedocumented in this encounter Care Teams Department [employer] Relationship Specialty Start Date End Date Robles Charles DO [address] [place] [id number] PCP - General Internal Medicine 07/30/23 Deisy Haji PA [address] [place] [address] [place] [address] PCP - Medical [employer] 11/30/23 11/29/99 documented as of this encounter
--- OUTSIDE RECORDS SUMMARY | 2025-08-14 05:54 | XMS_ITS | CCD ---
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 Name Role Phone Subha Dillon [...] Gonsalves Unavailable MD Derick Timmons Attending Provider [phone] SHANNON Schaffer Attending Provider Robles Charles Unavailable MD Liz Conteh Primary Care Provider DO Delano Francis Attending Provider [phone] QUANG Villar Attending Provider DO Robles Charles Primary Care Provider [phone] Robles Charles MD Primary Care Provider QUANG [...] Unavailable Robles Charles DO Primary Care Provider [phone] [facility] Delano CRESPO Attending Provider Robles [...] (5 sources) Penicillin V Drug Allergy rash [facility] [employer] Other (1 source) Amoxicillin Drug Allergy 0 [facility] Repository (1 source) Penicillins Drug allergy (disorder) [facility] Repository (5 sources) Penicillin Drug Allergy rash [employer] Other (1 source) Substance with penicillin structure and antibacterial mechanism of action (substance) Drug allergy 3 PENICILLINS [place] [employer] Other (20 sources) Amoxicillin Drug Allergy 3 [facility] (20 sources) Penicillin G Drug Allergy 3 Unknown [facility] (1 source) Penicillins Drug allergy (disorder) [address] [facility] Repository Medications Current Medications Medication Drug [...] 32.6 % Low 36.0 - 48.0 % [facility] Hemoglobin (Bld) [Mass/Vol] 11.2 g/dL Low 12.0 - 16.0 g/dL [facility] IMMATURE GRANULOCYTES ABS AUTO 0.[address] [facility] Immature granulocytes/100 WBC (Bld) 0.8 % High 0.0 - 0.5 % [facility] Interpretation and review of laboratory results Abnormal [facility] LYMPHOCYTES ABSOLUTE AUTO 1.5 [facility] Lymphocytes/100 WBC (Bld) 10.6 % Low 20.5 - 60.0 % [facility] MCH (RBC) [Entitic mass] 32.6 pg 26.7 - 34.[address] [facility] MCHC (RBC) [Mass/Vol] 34.4 g/dL 29.9 - 35.2 g/dL [facility] MCV (RBC) [Entitic vol] 94.8 fL 81.0 - 99.[address] [facility] MONOCYTES ABSOLUTE AUTO 1.2 High [facility] Monocytes/100 WBC (Bld) 8.1 % 1.7 - 12.0 % [facility] NEUTROPHILS ABSOLUTE AUTO 11.[address] [facility] Neutrophils/100 WBC (Bld) 79.9 % High 43.0 - 75.0 % [facility] Platelet mean volume (Bld) [Entitic vol] 9.6 fL 9.5 - 13.5 fL [facility] EO # 0.1 [facility] PLT 312 [facility] RBC 3.44 Low [facility] WBC 14.[address] [facility] UA (CLEAN/CATCH) CAPTAIN ASSISTANT/KAYCEE RO IF IND.on 08-07-20[address] NEGATIVE [facility] BLOOD URINE MODERATE Abnormal NEGATIVE [facility] Clarity (U) CLEAR CLEAR [facility] Color (U) LT. YELLOW YELLOW [facility] GLUCOSE URINE UA Negative NEGATIVE mg/dL [facility] Interpretation and review of laboratory results Abnormal [facility] Ketones Ql (U) 15 mg/dL Abnormal NEGATIVE [facility] Leukocyte esterase Test strip Ql (U) SMALL Abnormal NEGATIVE [facility] NITRITE URINE Negative NEGATIVE [facility] pH (U) 6.5 [pH] 5.0 - 9.0 [facility] PROTEIN URINE Negative NEG/TRACE mg/dL [facility] SPECIFIC GRAVITY URINE <=1.005 Abnormal 1.005 - 1.025 [facility] URINE MICROSCOPIC INDICATED YES [facility] UROBILINOGEN URINE 0.2 EU/dL 0.2 - 1.0 EU/dL [facility] Urinalysis macro (dipstick) panel (U)on 08-07-2025 Bilirubin, UA Negative Negative - 4(70) +++ mg/dL [facility] Blood, UA Positive Negative - 50 Ezequiel/mcL [facility] Clarity, UA Clear [facility] Color, UA Yellow [facility] Glucose, UA Negative Negative - 1999(110) ++++ mg/dL [facility] Interpretation and review of laboratory results Abnormal [facility] Ketones, UA Negative Negative - 160(16) ++++ mg/dL [facility] Leukocytes, UA Negative Negative - 500+++ Jason/mcL [facility] Nitrite, UA Negative Negative - Positive [facility] pH, UA 6 5 - 9 [facility] Protein, UA Negative Negative - 1999(20) ++++ mg/dL [facility] Spec Grav, UA 1.025 1 - 1.03 [facility] Urobilinogen, UA 1.0 0.2 - 12 mg/dL [facility] US OB BPP W NON-STRESS on 08-05-2025 [place] [address] Ultrasound Report Signed Patient: ANGELA REYES MR#: [id number] : 1990 Acct:[id number] Age/Sex: 35 / F ADM Date: 08/05/25 Loc: [facility] 250-[address]: Ángel Buckner D.O. Ordering Physician: Ángel Buckner D.O. Date of Service: 08/05/25 Procedure(s): US OB BPP w non-stress Accession Number(s): [id number] cc: Robles Charles D.O.; Ángel Buckner D.O. [address] [address] Patient Name: ANGELA REYES MRN: [facility]:[id number] date: 1990 Sex: F Assigned Patient Location: [facility] Current Patient Location: [facility] Accession/Order Number: [id number] Exam Date: 08/05/2025 08:35 Report Date: 08/05/2025 09:03 At the request of: ÁNGEL BUCKNER DO Procedure: US OB BPP w non-stress Biophysical profile. Reason for exam: History of miscarriage. COMPARISON: 07/29/2025 TECHNIQUE: Transabdominal imaging of the gravid uterus was obtained. FINDINGS: The manager of organizational development reports a BPP of 8 out of 8. MARTY is normal at 12.6 cm. heart rate 132 bpm. US/US OB BPP w non-stress IMPRESSION: BPP 8 out of 8. Impression dictated by: Justin Mack Jr., D.O. 08/05/2025 9:03 AM Dictation Location[facility] Electronically authenticated by: [id number] Y Date: 08/05/2025 09:03 Dictated By: Justin Mack M.D. Signed By: 08/05/25904 DD/ 2 TD/TT: Editing Internship: [facility] Radiology, Radiologbrittanie pa MD - 08/05/2025 [place] [address] Ultrasound Report Signed Patient: ANGELA REYES MR#: [id number] : 1990 Acct:[id number] Age/Sex: 35 / F ADM Date: 08/05/25 Loc: [facility] 250-[address]: Ángel Buckner D.O. Ordering Physician: Ángel Buckner D.O. Date of Service: 08/05/25 Procedure(s): US OB BPP w non-stress Accession Number(s): [id number] cc: Robles Charles D.O.; Ángel Buckner D.O. The [address] [address] Patient Name: ANGELA REYES MRN: [facility]:[id number] date: 1990 Sex: F Assigned Patient Location: [facility] Current Patient Location: [facility] Accession/Order Number: [id number] Exam Date: 08/05/2025 08:35 Report Date: 08/05/2025 09:03 At the request of: ÁNGEL BUCKNER DO Procedure: US OB BPP w non-stress Biophysical profile. Reason for exam: History of miscarriage. COMPARISON: 07/29/2025 TECHNIQUE: Transabdominal imaging of the gravid uterus was obtained. FINDINGS: The manager of organizational development reports a BPP of 8 out of 8. MARTY is normal at 12.6 cm. heart rate 132 bpm. US/US OB BPP w non-stress IMPRESSION: BPP 8 out of 8. Impression dictated by: Justin Mack Jr., D.O. 08/05/2025 9:03 AM Dictation Location: [employer] Electronically authenticated by: [id number] Y Date: 08/05/2025 09:03 Dictated By: Justin Mack M.D. Signed By: 08/05/25904 DD/ 2 TD/TT: Editing Internship: [facility] Radiology Study observation (narrative) [facility] US OB BPP W NON-STRESS Ordered By: Radiologist Radiology on 08-05-2025 [facility] Work Phone: Urinalysis macro (dipstick) panel (U)on 08-03-2025 Bilirubin, UA Negative Negative - 4(70) +++ mg/dL [facility] Blood, UA Negative Negative - 50 Ezequiel/mcL [facility] Clarity, UA Clear [facility] Color, UA Yellow [facility] Glucose, UA Negative Negative - 1999(110) ++++ mg/dL [facility] Interpretation and review of laboratory results Abnormal [facility] Ketones, UA Negative Negative - 160(16) ++++ mg/dL [facility] Leukocytes, UA Positive Negative - 500+++ Jason/mcL [facility] Nitrite, UA Negative Negative - Positive [facility] pH, UA 6 5 - 9 [facility] Protein, UA Negative Negative - 2000(20) ++++ mg/dL [facility] Spec Grav, UA 1.015 1 - 1.03 [facility] Urobilinogen, UA 1.0 0.2 - 12 mg/dL [facility] US OB BPP W NON-STRESS on 07-29-[address] [address] Ultrasound Report Signed Patient: ANGELA REYES MR#: [id number] : 1990 Acct:[id number] Age/Sex: 35 / F ADM Date: 07/29/25 Loc: US Attending Dr: Ángel Buckner D.O. Ordering Physician: Ángel Buckner D.O. Date of Service: 07/29/25 Procedure(s): US OB BPP w non-stress Accession Number(s): [id number] cc: Robles Charles D.O.; Ángel Buckner D.O. [place] [address] Patient Name: ANGELA REYES MRN: [facility]:[id number] date: 1990 Sex: F Assigned Patient Location: [facility] Current Patient Location: Accession/Order Number: [id number] Exam Date: 07/29/2025 08:02 Report Date: 07/29/2025 [...] Yusuf M.D. 07/29/2025 11:10 AM Dictation Location: [place] [address] Electronically authenticated by: [id number] Y Date: 07/29/2025 11:10 Dictated By: Roddy Yusuf M.D. Signed By: 07/29/25 1112 DD/ 1110 TD/TT: Editing Internship: [facility] RadiologyNeelimaogbrittanie pa MD - 07/29/2025 [place] [address] Ultrasound Report Signed Patient: ANGELA REYES MR#: [id number] : 1990 Acct:[id number] Age/Sex: 35 / F ADM Date: 07/29/25 Loc: US Attending Dr: Ángel Buckner D.O. Ordering Physician: Ángel Buckner D.O. Date of Service: 07/29/25 Procedure(s): US OB BPP w non-stress Accession Number(s): [id number] cc: Robles Charles D.O.; Ángel Buckner D.O. [place] [address] Patient Name: ANGELA REYES MRN: [facility]:[id number] date: 1990 Sex: F Assigned Patient Location: [facility] Current Patient Location: Accession/Order Number: [id number] Exam Date: 07/29/2025 08:02 Report Date: 07/29/2025 [...] Yusuf M.D. 07/29/2025 11:10 AM Dictation Location: [place] [address] Electronically authenticated by: [id number] Y Date: 07/29/2025 11:10 Dictated By: Roddy Yusuf M.D. Signed By: 07/29/25 1112 DD/ 1110 TD/TT: Editing Internship: [facility] Radiology Study observation (narrative) [facility] US OB BPP W NON-STRESS Ordered By: Radiologist Radiology on 07-29-2025 [facility] Work Phone: Urinalysis macro (dipstick) panel (U)on 07-24-2025 Bilirubin, UA Negative Negative - 4(70) +++ mg/dL [facility] Blood, UA Negative Negative - 50 Ezequiel/mcL [facility] Clarity, UA Clear [facility] Color, UA Christine [facility] Glucose, UA Negative Negative - 2000(110) ++++ mg/dL [facility] Interpretation and review of laboratory results Abnormal [facility] Ketones, UA Negative Negative - 160(16) ++++ mg/dL [facility] Leukocytes, UA Positive Negative - 500+++ Jason/mcL [facility] Comment on above: 1+ Nitrite, UA Negative Negative - Positive [facility] pH, UA 6 5 - 9 [facility] Protein, UA Positive Negative - 2000(20) ++++ mg/dL [facility] Comment on above: 0.15 g/L Spec Grav, UA 1.015 1 - 1.03 [facility] Urobilinogen, UA 0.2 0.2 - 12 mg/dL [facility] US OB BPP W NON-STRESS on 07-22-2025 [place] [address] Ultrasound Report Signed Patient: ANGELA REYES MR#: [id number] : 1990 Acct:[id number] Age/Sex: 35 / F ADM Date: 07/22/25 Loc: US Attending Dr: Ángel Buckner D.O. Ordering Physician: Ángel Buckner D.O. Date of Service: 07/22/25 Procedure(s): US OB BPP w non-stress Accession Number(s): [id number] cc: Robles Charles D.O.; Ángel Buckner D.O. The [place] [address] Patient Name: ANGELA REYES MRN: [facility]:[id number] date: 1990 Sex: F Assigned Patient Location: US Current Patient Location: Accession/Order Number: [id number] Exam Date: 07/22/2025 07:58 Report Date: 07/22/2025 [...] Yusuf M.D. 07/22/2025 5:02 PM Dictation Location: [place] [address] Electronically authenticated by: [id number] Y Date: 07/22/2025 17:02 Dictated By: Roddy Yusuf M.D. Signed By: 07/22/252015 DD/ 01 TD/TT: Editing Internship: [facility] Radiology, Radiologi MD ember - 07/22/2025 [place] [address] Ultrasound Report Signed Patient: ANGELA REYES MR#: [id number] : 1990 Acct:[id number] Age/Sex: 35 / F ADM Date: 07/22/25 Loc: US Attending Dr: Ángel Buckner D.O. Ordering Physician: Ángel Buckner D.O. Date of Service: 07/22/25 Procedure(s): US OB BPP w non-stress Accession Number(s): [id number] cc: Robles Charles D.O.; Ángel Buckner D.O. [place] [phone] Patient Name: ANGELA REYES MRN: [id number]:[id number] date: 1990 Sex: F Assigned Patient Location: US Current Patient Location: Accession/Order Number: [id number] Exam Date: 07/22/2025 07:58 Report Date: 07/22/2025 [...] Yusuf M.D. 07/22/2025 5:02 PM Dictation Location: [place] [address] Electronically authenticated by: [id number] Y Date: 07/22/2025 17:02 Dictated By: Roddy Yusuf M.D. Signed By: 07/22/252015 DD/ 01 TD/TT: Editing Internship: [facility] Radiology Study observation (narrative) [facility] US OB BPP W NON-STRESS Ordered By: Radiologist Radiology on 07-22-2025 [facility] Work Phone: Urinalysis macro (dipstick) panel (U)on 07-17-2025 Bilirubin, UA Negative Negative - 4(70) +++ mg/dL [facility] Blood, UA Negative Negative - 50 Ezequiel/mcL [facility], UA Yellow [facility] Glucose, UA Negative Negative - 1999(110) ++++ mg/dL [facility] Interpretation and review of laboratory results Abnormal [facility] Ketones, UA Negative Negative - 160(16) ++++ mg/dL [facility] Leukocytes, UA Positive Negative - 500+++ Jason/mcL [facility] Comment on above: 2+ Nitrite, UA Negative Negative - Positive [facility] pH, UA 6 5 - 9 [facility] Protein, UA Negative Negative - 1999(20) ++++ mg/dL [facility] Spec Grav, UA 1.015 1 - 1.03 [facility] Urobilinogen, UA 1.0 0.2 - 12 mg/dL [facility] US OB BPP W NON-STRESS on 07-15-2025 [place] [address] Ultrasound Report Signed Patient: ANGELA REYES MR#: [id number] : 1990 Acct:[id number] Age/Sex: 35 / F ADM Date: 07/15/25 Loc: US Attending Dr: Ángel Buckner D.O. Ordering Physician: Ángel Buckner D.O. Date of Service: 07/15/25 Procedure(s): US OB BPP w non-stress Accession Number(s): [id number] cc: Robles Charles D.O.; Ángel Buckner D.O. [place] [phone] Patient Name: ANGELA REYES MRN: [facility]:[id number] date: 1990 Sex: F Assigned Patient Location: [facility] Current Patient Location: Accession/Order Number: [id number] Exam Date: 07/15/2025 09:17 Report Date: 07/15/2025 09:18 At the request of: ÁNGEL BUCKNER DO Procedure: US OB BPP w non-stress Biophysical profile. Reason for exam: Advanced maternal age COMPARISON: 07/08/2025 TECHNIQUE: Transabdominal imaging of the gravid uterus was obtained. FINDINGS: The manager of organizational development reports a BPP of 8 out of 8. MARTY is normal at 14 cm. heart rate 136 bpm. US/US OB BPP w non-stress IMPRESSION: BPP 8 out of 8. Impression dictated by: Justin Mack Jr., D.O. 07/15/2025 9:18 AM Dictation Location: [place] [address] Electronically authenticated by: [id number] Y Date: 07/15/2025 09:18 Dictated By: Justin Mack M.D. Signed By: 07/15/25919 DD/ 7 TD/TT: Editing Internship: [facility] Radiology, Radiologi MD ember - 07/15/2025 [place] [address] Ultrasound Report Signed Patient: ANGELA REYES MR#: [id number] : 1990 Acct:[id number] Age/Sex: 35 / F ADM Date: 07/15/25 Loc: US Attending Dr: Ángel Buckner D.O. Ordering Physician: Ángel Buckner D.O. Date of Service: 07/15/25 Procedure(s): US OB BPP w non-stress Accession Number(s): [id number] cc: Robles Charles D.O.; Ángel Buckner D.O. The [place] [address] Patient Name: ANGELA REYES MRN: [facility]:[id number] date: 1990 Sex: F Assigned Patient Location: [facility] Current Patient Location: Accession/Order Number: [id number] Exam Date: 07/15/2025 09:17 Report Date: 07/15/2025 09:18 At the request of: ÁNGEL BUCKNER DO Procedure: US OB BPP w non-stress Biophysical profile. Reason for exam: Advanced maternal age COMPARISON: 07/08/2025 TECHNIQUE: Transabdominal imaging of the gravid uterus was obtained. FINDINGS: The manager of organizational development reports a BPP of 8 out of 8. MARTY is normal at 14 cm. heart rate 136 bpm. US/US OB BPP w non-stress IMPRESSION: BPP 8 out of 8. Impression dictated by: Justin Mack Jr., D.O. 07/15/2025 9:18 AM Dictation Location: [place] [address] Electronically authenticated by: [id number] Y Date: 07/15/2025 09:18 Dictated By: Justin Mack M.D. Signed By: 07/15/25919 DD/ 7 TD/TT: Editing Internship: [facility] Radiology Study observation (narrative) [facility] US OB BPP W NON-STRESS Ordered By: Radiologist Radiology on 07-15-2025 [facility] Work Phone: Urinalysis macro (dipstick) panel (U)on 07-10-2025 Bilirubin, UA Negative Negative - 4(70) +++ mg/dL [facility] Blood, UA Negative Negative - 50 Ezequiel/mcL [facility] Clarity, UA Clear [facility] Color, UA Yellow [facility] Glucose, UA Negative Negative - 2000(110) ++++ mg/dL [facility] Interpretation and review of laboratory results Abnormal [facility] Ketones, UA Negative Negative - 160(16) ++++ mg/dL [facility] Leukocytes, UA Positive Negative - 500+++ Jason/mcL [facility] Comment on above: small Nitrite, UA Negative Negative - Positive [facility] pH, UA 6 5 - 9 [facility] Protein, UA Negative Negative - 2000(20) ++++ mg/dL [facility] Spec Grav, UA 1.015 1 - 1.03 [facility] Urobilinogen, UA 0.2 0.2 - 12 mg/dL [facility] US OB BPP W NON-STRESS on 07-08-2025 [place] [address] Ultrasound Report Signed Patient: ANGELA REYES MR#: [id number] : 1990 Acct:[id number] Age/Sex: 35 / F ADM Date: 07/08/25 Loc: US Attending Dr: Ángel Buckner D.O. Ordering Physician: Ángel Buckner D.O. Date of Service: 07/08/25 Procedure(s): US OB BPP w non-stress Accession Number(s): [id number] cc: Robles Charles D.O.; Ángel Buckner D.O. The [address] [address] Patient Name: ANGELA REYES MRN: [facility]:[id number] date: 1990 Sex: F Assigned Patient Location: [facility] Current Patient Location: Accession/Order Number: [id number] Exam Date: 07/08/2025 09:19 Report Date: 07/08/2025 09:19 At the request of: ÁNGEL BUCKNER DO Procedure: US OB BPP w non-stress Biophysical profile. Reason for exam: History of miscarriage COMPARISON: 07/01/2025 TECHNIQUE: Transabdominal imaging of the gravid uterus was obtained. FINDINGS: The manager of organizational development reports a BPP of 8 out of 8. MARTY is normal at 12.5 cm. heart rate 135 bpm. US/US OB BPP w non-stress IMPRESSION: BPP 8 out of 8. Impression dictated by: Justin Mack Jr., D.O. 07/08/2025 9:19 AM Dictation Location: [place] [address] Electronically authenticated by: [id number] Y Date: 07/08/2025 09:19 Dictated By: Justin Mack M.D. Signed By: 07/08/25921 DD/ 8 TD/TT: Editing Internship: [facility] Radiology Radiologbrittanie pa MD - 07/08/2025 The [place] [id number] Ultrasound Report Signed Patient: ANGELA REYES MR#: [id number] : 1990 Acct:[id number] Age/Sex: 35 / F ADM Date: 07/08/25 Loc: US Attending Dr: Ángel Buckner D.O. Ordering Physician: Ángel Buckner D.O. Date of Service: 07/08/25 Procedure(s): US OB BPP w non-stress Accession Number(s): [id number] cc: Robles Charles D.O.; Ángel Buckner D.O. [address] [address] Patient Name: ANGELA REYES MRN: [id number] date: 1990 Sex: F Assigned Patient Location: [facility] Current Patient Location: Accession/Order Number: [id number] Exam Date: 07/08/2025 09:19 Report Date: 07/08/2025 09:19 At the request of: ÁNGEL BUCKNER DO Procedure: US OB BPP w non-stress Biophysical profile. Reason for exam: History of miscarriage COMPARISON: 07/01/2025 TECHNIQUE: Transabdominal imaging of the gravid uterus was obtained. FINDINGS: The manager of organizational development reports a BPP of 8 out of 8. MARTY is normal at 12.5 cm. heart rate 135 bpm. US/US OB BPP w non-stress IMPRESSION: BPP 8 out of 8. Impression dictated by: Justin Mack Jr., D.O. 07/08/2025 9:19 AM Dictation Location: [place] [address] Electronically authenticated by: [id number] Y Date: 07/08/2025 09:19 Dictated By: Justin Mack M.D. Signed By: 07/08/25921 DD/ 8 TD/TT: Editing Internship: [facility] Radiology Study observation (narrative) [facility] US OB BPP W NON-STRESS Ordered By: Radiologist Radiology on 07-08-2025 [facility] Work Phone: US OB BPP W NON-STRESS on 07-01-[address] [address] Ultrasound Report Signed Patient: ANGELA REYES MR#: [id number] : 1990 Acct:[id number] Age/Sex: 35 / F ADM Date: 07/01/25 Loc: US Attending Dr: Ángel Buckner D.O. Ordering Physician: Ángel Buckner D.O. Date of Service: 07/01/25 Procedure(s): US OB BPP w non-stress Accession Number(s): [id number] cc: Robles Charles D.O.; Ángel Buckner D.O. [place] [id number] Patient Name: ANGELA REYES MRN: [facility]:[id number] date: 1990 Sex: F Assigned Patient Location: [facility] Current Patient Location: Accession/Order Number: [id number] Exam Date: 07/01/2025 20:05 Report Date: 07/01/2025 [...] Yusuf M.D. 07/01/2025 8:07 PM Dictation Location: [place] [address] Electronically authenticated by: [id number] Y Date: 07/01/2025 20:07 Dictated By: Roddy Yusuf M.D. Signed By: 07/01/252008 DD/ 06 TD/TT: Editing Internship: [facility] Radiology, Radiologbrittanie pa MD - 07/01/[address] [address] Ultrasound Report Signed Patient: ANGELA REYES MR#: [id number] : 1990 Acct:[id number] Age/Sex: 35 / F ADM Date: 07/01/25 Loc: US Attending Dr: Ángel Buckner D.O. Ordering Physician: Ángel Buckner D.O. Date of Service: 07/01/25 Procedure(s): US OB BPP w non-stress Accession Number(s): [id number] cc: Robles Charles D.O.; Ángel Buckner D.O. [place] [address] Patient Name: ANGELA REYES MRN: [id number] date: 1990 Sex: F Assigned Patient Location: [facility] Current Patient Location: Accession/Order Number: [id number] Exam Date: 07/01/2025 20:05 Report Date: 07/01/2025 [...] Yusuf M.D. 07/01/2025 8:07 PM Dictation Location: [place] [address] Electronically authenticated by: [id number] Y Date: 07/01/2025 20:07 Dictated By: Roddy Yusuf M.D. Signed By: 07/01/252008 DD/ 06 TD/TT: Editing Internship: [facility] Radiology Study observation (narrative) [facility] US OB BPP W NON-STRESS Ordered By: Radiologist Radiology on 07-01-2025 [facility] Work Phone: US OB FOLLOW UP TRANSABDOMIN [...] II, MD, PHD at 26-Jun-2025 11:42:39 PM [facility] Normal Not Available Comment on above: Order Comment: US OB SCAN FOR GROWTH Estimated Date of Delivery: 08/09/25 Gestational Age as of 06/12/2025: 31w5d Urinalysis macro (dipstick) panel (U)on 06-26-2025 Bilirubin, UA Negative Negative - 4(70) +++ mg/dL [facility] Healthcare Blood, UA Negative Negative - 50 Ezequiel/mcL [facility] Clarity, UA Clear [facility] Color, UA Yellow [facility] Glucose, UA Negative Negative - 2000(110) ++++ mg/dL [facility] Interpretation and review of laboratory results Normal [facility] Ketones, UA Negative Negative - 160(16) ++++ mg/dL [facility] Leukocytes, UA Negative Negative - 500+++ Jason/mcL [facility] Nitrite, UA Negative Negative - Positive [facility] pH, UA 6.5 5 - 9 [facility] Protein, UA Negative Negative - 1999(20) ++++ mg/dL [facility] Spec Grav, UA 1.01 1 - 1.03 [facility] Urobilinogen, UA 1.0 0.2 - 12 mg/dL [facility] US OB BPP W NON-STRESS on 06-24-2025 [place] [address] Ultrasound Report Signed Patient: ANGELA REYES MR#: [id number] : 1990 Acct:[id number] Age/Sex: 35 / F ADM Date: 06/24/25 Loc: US Attending Dr: Ángel Buckner D.O. Ordering Physician: Ángel Buckner D.O. Date of Service: 06/24/25 Procedure(s): US OB BPP w non-stress Accession Number(s): [id number] cc: Robles Charles D.O.; Ángel Buckner D.O. [place] [address] Patient Name: ANGELA REYES MRN: [facility]:[id number] date: 1990 Sex: F Assigned Patient Location: Current Patient Location: Accession/Order Number: [id number] Exam Date: 06/24/2025 09:33 Report Date: 06/24/2025 09:34 At the request of: ÁNGEL BUCKNER DO Procedure: US OB BPP w non-stress Biophysical profile. Reason for exam: History of miscarriage COMPARISON: 06/17/2025 TECHNIQUE: Transabdominal imaging of the gravid uterus was obtained. FINDINGS: The manager of organizational development reports a BPP of 8 out of 8. MARTY is normal at 15 cm. heart rate 130 bpm. US/US OB BPP w non-stress IMPRESSION: BPP 8 out of 8. Impression dictated by: Justin Mack Jr., D.O. 06/24/2025 9:34 AM Dictation Location: [place] [address] Electronically authenticated by: [id number] Y Date: 06/24/2025 09:34 Dictated By: Justin Mack M.D. Signed By: 06/24/2536 DD/ 3 TD/TT: Editing Internship: [facility] Radiology, Radiologbrittanie pa MD - 06/24/2025 [place] [address] Ultrasound Report Signed Patient: ANGELA REYES MR#: [id number] : 1990 Acct:[id number] Age/Sex: 35 / F ADM Date: 06/24/25 Loc: US Attending Dr: Ángel Buckner D.O. Ordering Physician: Ángel Buckner D.O. Date of Service: 06/24/25 Procedure(s): US OB BPP w non-stress Accession Number(s): [id number] cc: Robles Charles D.O.; Ángel Buckner D.O. The [place] [address] Patient Name: ANGELA REYES MRN: [facility]:[id number] date: 1990 Sex: F Assigned Patient Location: US Current Patient Location: Accession/Order Number: [id number] Exam Date: 06/24/2025 09:33 Report Date: 06/24/2025 09:34 At the request of: ÁNGEL BUCKNER DO Procedure: US OB BPP w non-stress Biophysical profile. Reason for exam: History of miscarriage COMPARISON: 06/17/2025 TECHNIQUE: Transabdominal imaging of the gravid uterus was obtained. FINDINGS: The manager of organizational development reports a BPP of 8 out of 8. MARTY is normal at 15 cm. heart rate 130 bpm. US/US OB BPP w non-stress IMPRESSION: BPP 8 out of 8. Impression dictated by: Justin Mack Jr., D.O. 06/24/2025 9:34 AM Dictation Location: [facility] Electronically authenticated by: [id number] Y Date: 06/24/2025 09:34 Dictated By: Justin Mack M.D. Signed By: 06/24/2536 DD/ TD/TT: Editing Internship: [facility] Radiology Study observation (narrative) [facility] US OB BPP W NON-STRESS Ordered By: Radiologist Radiology on 06-24-2025 [facility] Work Phone: US OB BPP W NON-STRESS on 06-17-2025 [place] [address] Ultrasound Report Signed Patient: ANGELA REYES MR#: [id number] : 1990 Acct:[id number] Age/Sex: 35 / F ADM Date: 06/17/25 Loc: [facility] 250-[address]: Ángel Buckner D.O. Ordering Physician: Ángel Buckner D.O. Date of Service: 06/17/25 Procedure(s): US OB BPP w non-stress Accession Number(s): [id number] cc: Robles Charles D.O.; Ángel Buckner D.O. [place] [address] Patient Name: ANGELA REYES MRN: [facility]:[id number] date: 1990 Sex: F Assigned Patient Location: [facility] Current Patient Location: [facility] Accession/Order Number: [id number] Exam Date: 06/17/2025 09:17 Report Date: 06/17/2025 [...] Ramachandran M.D. 06/17/2025 9:20 AM Dictation Location: [place] [address] Electronically authenticated by: [id number] Y Date: 06/17/2025 09:20 Dictated By: Carlton Ramachandran M.D. Signed By: 06/17/25921 DD/ 9 TD/TT: Editing Internship: [facility] Tyrese Wolff MD - 06/17/2025 [place] [address] Ultrasound Report Signed Patient: ANGELA REYES MR#: [id number] : 1990 Acct:[id number] Age/Sex: 35 / F ADM Date: 06/17/25 Loc: [facility] 250-[address]: Ángel Buckner D.O. Ordering Physician: Ángel Buckner D.O. Date of Service: 06/17/25 Procedure(s): US OB BPP w non-stress Accession Number(s): [id number] cc: Robles Charles D.O.; Ángel Buckner D.O. The [place] [address] Patient Name: ANGELA REYES MRN: [facility]:[id number] date: 1990 Sex: F Assigned Patient Location: [facility] Current Patient Location: [facility] Accession/Order Number: [id number] Exam Date: 06/17/2025 09:17 Report Date: 06/17/2025 [...] Ramachandran M.D. 06/17/2025 9:20 AM Dictation Location: [place] [address] Electronically authenticated by: [id number] Y Date: 06/17/2025 09:20 Dictated By: Carlton Ramachandran M.D. Signed By: 06/17/25921 DD/ 9 TD/TT: Editing Internship: [facility] Radiology Study observation (narrative) [facility] US OB BPP W NON-STRESS Ordered By: Radiologist Radiology on 06-17-2025 [facility] Work Phone: US OB BPP W NON-STRESS on 06-10-2025 [place] [address] Ultrasound Report Signed Patient: ANGELA REYES MR#: [id number] : 1990 Acct:[id number] Age/Sex: 35 / F ADM Date: 06/10/25 Loc: US Attending Dr: Ángel Buckner D.O. Ordering Physician: Ángel Buckner D.O. Date of Service: 06/10/25 Procedure(s): US OB BPP w non-stress Accession Number(s): [id number] cc: Robles Charles D.O.; Ángel Buckner D.O. [place] [id number] Patient Name: ANGELA REYES MRN: [facility]:[id number] date: 1990 Sex: F Assigned Patient Location: [facility] Current Patient Location: Accession/Order Number: [id number] Exam Date: 06/10/2025 18:36 Report Date: 06/10/2025 [...] Yusuf M.D. 06/10/2025 6:38 PM Dictation Location: [place] [address] Electronically authenticated by: [id number] Y Date: 06/10/2025 18:38 Dictated By: Roddy Yusuf M.D. Signed By: 06/10/251840 DD/ 37 TD/TT: Editing Internship: [facility] Radiology, Radiologbrittanie pa MD - 06/10/2025 [place] [address] Ultrasound Report Signed Patient: ANGELA REYES MR#: [id number] : 1990 Acct:[id number] Age/Sex: 35 / F ADM Date: 06/10/25 Loc: US Attending Dr: Ángel Buckner D.O. Ordering Physician: Ángel Buckner D.O. Date of Service: 06/10/25 Procedure(s): US OB BPP w non-stress Accession Number(s): [id number] cc: Robles Charles D.O.; Ángel Buckner D.O. [place] [address] Patient Name: ANGELA REYES MRN: [facility]:[id number] date: 1990 Sex: F Assigned Patient Location: [facility] Current Patient Location: Accession/Order Number: [id number] Exam Date: 06/10/2025 18:36 Report Date: 06/10/2025 [...] Yusuf M.D. 06/10/2025 6:38 PM Dictation Location: [place] [address] Electronically authenticated by: [id number] Y Date: 06/10/2025 18:38 Dictated By: Roddy Yusuf M.D. Signed By: 06/10/25 184 DD/ 37 TD/TT: Editing Internship: [facility] Radiology Study observation (narrative) [facility] US OB BPP W NON-STRESS Ordered By: Radiologist Radiology on 06-10-2025 [facility] [employer] Work Phone: US OB BPP W NON-STRESS on 06-03-2025 [place] [address] Ultrasound Report Signed Patient: ANGELA REYES MR#: [id number] : 1990 Acct:[id number] Age/Sex: 35 / F ADM Date: 06/03/25 Loc: US Attending Dr: Ángel Buckner D.O. Ordering Physician: Ángel Buckner D.O. Date of Service: 06/03/25 Procedure(s): US OB BPP w non-stress Accession Number(s): [id number] cc: Robles Charles D.O.; Ángel Buckner D.O. [place] [id number] Patient Name: ANGELA REYES MRN: [facility]:[id number] date: 1990 Sex: F Assigned Patient Location: [facility] Current Patient Location: Accession/Order Number: [id number] Exam Date: 06/03/2025 14:22 Report Date: 06/03/2025 [...] Durand M.D. 06/03/2025 2:23 PM Dictation Location: [place] [address] Electronically authenticated by: [id number] Y Date: 06/03/2025 14:23 Dictated By: Aguilar Durand D.O. Signed By: 06/03/251424 DD/ 22 TD/TT: Editing Internship: [facility] Radiology, Radiologi MD ember - 06/03/2025 [place] [address] Ultrasound Report Signed Patient: ANGELA REYES MR#: [id number] : 1990 Acct:[id number] Age/Sex: 35 / F ADM Date: 06/03/25 Loc: US Attending Dr: Ángel Buckner D.O. Ordering Physician: Ángel Buckner D.O. Date of Service: 06/03/25 Procedure(s): US OB BPP w non-stress Accession Number(s): [id number] cc: Robles Charles D.O.; Ángel Buckner D.O. [place] [address] Patient Name: ANGELA REYES MRN: [facility]:[id number] date: 1990 Sex: F Assigned Patient Location: [facility] Current Patient Location: Accession/Order Number: [id number] Exam Date: 06/03/2025 14:22 Report Date: 06/03/2025 [...] Durand M.D. 06/03/2025 2:23 PM Dictation Location: [place] [address] Electronically authenticated by: [id number] Y Date: 06/03/2025 14:23 Dictated By: Aguilar Durand D.O. Signed By: 06/03/25 1425 DD/ 22 TD/TT: Editing Internship: [facility] Radiology Study observation (narrative) [facility] US OB BPP W NON-STRESS Ordered By: Radiologist Radiology on 06-03-2025 [facility] Work Phone: Urinalysis macro (dipstick) panel (U)on 05-30-2025 Bilirubin, UA Negative Negative - 4(70) +++ mg/dL [facility] Blood, UA Negative Negative - 50 Ezequiel/mcL [facility] Clarity, UA Clear [facility] Color, UA Yellow [facility] Glucose, UA Negative Negative - 2000(110) ++++ mg/dL [facility] Interpretation and review of laboratory results Normal [facility] Ketones, UA Negative Negative - 160(16) ++++ mg/dL [facility] Leukocytes, UA Negative Negative - 500+++ Jason/mcL [facility] Nitrite, UA Negative Negative - Positive [facility] pH, UA 5.5 5 - 9 [facility] Protein, UA Negative Negative - 2000(20) ++++ mg/dL [facility] Spec Grav, UA 1.02 1 - 1.03 [facility] Urobilinogen, UA 1.0 0.2 - 12 mg/dL [facility] US OB GROWTHon 05-11-2025 [place] [address] Ultrasound Report Signed Patient: ANGELA REYES MR#: [id number] : 1990 Acct:[id number] Age/Sex: 35 / F ADM Date: 05/11/25 Loc: US Attending Dr: Edson Dewitt Ordering Physician: Edson Dewitt Date of Service: 05/11/25 Procedure(s): US OB growth Accession Number(s): [id number] cc: Robles Charles D.O.; Edson Dewitt [place] [id number] Patient Name: ANGELA REYES MRN: [facility]:[id number] date: 1990 Sex: F Assigned Patient Location: US Current Patient Location: US Accession/Order Number: [id number] Exam Date: 05/11/2025 14:38 Report Date: 05/11/2025 [...] Jr., D.O. 05/11/2025 2:40 PM Dictation Location: [place] [address] Electronically authenticated by: [id number] Y Date: 05/11/2025 14:40 Dictated By: Justin Mack M.D. Signed By: 05/11/25 1442 DD/ 1440 TD/TT: Editing Internship: [facility] Radiology, Radiologi MD ember - 05/11/2025 The [place] [id number] Ultrasound Report Signed Patient: ANGELA REYES MR#: [id number] : 1990 Acct:[id number] Age/Sex: 35 / F ADM Date: 05/11/25 Loc: US Attending Dr: Edson Dewitt Ordering Physician: Edson Dewitt Date of Service: 05/11/25 Procedure(s): US OB growth Accession Number(s): [id number] cc: Robles Charles D.O.; Edson Dewitt [place] [id number] Patient Name: ANGELA REYES MRN: [facility]:[id number] date: 1990 Sex: F Assigned Patient Location: US Current Patient Location: Accession/Order Number: [id number] Exam Date: 05/11/2025 14:38 Report Date: 05/11/2025 [...] Jr., D.O. 05/11/2025 2:40 PM Dictation Location: [place] [address] Electronically authenticated by: [id number] Y Date: 05/11/2025 14:40 Dictated By: Justin Mack M.D. Signed By: 05/11/25 1442 DD/ 39 TD/TT: Editing Internship: [facility] Radiology Study observation (narrative) [facility] OB GROWTHOrdered By: Reg ologist Radiology on 05-11-2025 [facility] Work Phone: ALL CBC WITH AUTO DIFFon BASOPHILS ABSOLUTE AUTO 0 N [facility] Basophils/100 WBC (Bld) 0.2 % 0.2 - 2.0 % [facility] Eosinophils/100 WBC (Bld) 1.2 % 0.9 - 7.0 % [facility] Erythrocyte distribution width (RBC) [Ratio] 13.2 % 11.0 - 15.0 % [facility] Hematocrit (Bld) [Volume fraction] 31.9 % Low 36.0 - 48.0 % [facility] Hemoglobin (Bld) [Mass/Vol] 10.6 g/dL Low 12.0 - 16.0 g/dL [facility] IMMATURE GRANULOCYTES ABS AUTO 0.[address] [facility] Immature granulocytes/100 WBC (Bld) 0.6 % High 0.0 - 0.5 % [facility] Interpretation and review of laboratory results Abnormal [facility] LYMPHOCYTES ABSOLUTE AUTO 1.6 [facility] Lymphocytes/100 WBC (Bld) 15.6 % Low 20.5 - 60.0 % [facility] MCH (RBC) [Entitic mass] 32.6 pg 26.7 - 34.[address] [facility] MCHC (RBC) [Mass/Vol] 33.2 g/dL 29.9 - 35.2 g/dL [facility] MCV (RBC) [Entitic vol] 98.2 fL 81.0 - 99.[address] [facility] MONOCYTES ABSOLUTE AUTO 0.6 N [facility] Monocytes/100 WBC (Bld) 6 % 1.7 - 12.0 % [facility] NEUTROPHILS ABSOLUTE AUTO 7.[address] [facility] Neutrophils/100 WBC (Bld) 76.4 % High 43.0 - 75.0 % [facility] Platelet mean volume (Bld) [Entitic vol] 9 fL Low 9.5 - 13.[address] [facility] TBH EO # 0.1 [facility] TBH PLT 313 [facility] RBC 3.25 Low [facility] WBC 10.1 [facility] GLUCOSE 1 HOURon 04-18-2025 Glucose [Mass/Vol] 96 mg/dL NINF - 13 0 mg/dL [facility] No Panel Informationon 04-[address] [facility] US OB LIMITED 1+ FETUSESon [...] II, MD, PHD at 21-Apr-2025 12:15:59 PM [facility] Normal Not Available Comment on above: Order Comment: US OB INCOMPLETE ANATOMY W US OB TRANSVAGINAL Estimated Date of Delivery: 08/09/25 Gestational Age as of 03/30/2025: 21w1d Urinalysis macro (dipstick) panel (U)on 03-30-2025 Bilirubin, UA Negative Negative - 4(70) +++ mg/dL [facility] Blood, UA Negative Negative - 50 Ezequiel/mcL [facility] Clarity, UA Clear [facility] Color, UA Yellow [facility] Glucose, UA Negative Negative - 2000(110) ++++ mg/dL [facility] Interpretation and review of laboratory results Normal [facility] Ketones, UA Negative Negative - 160(16) ++++ mg/dL [facility] Leukocytes, UA Negative Negative - 500+++ Jason/mcL [facility] Nitrite, UA Negative Negative - Positive [facility] pH, UA 7 5 - 9 [facility] Protein, UA Negative Negative - 2000(20) ++++ mg/dL [facility] Spec Grav, UA 1.02 1 - 1.03 [facility] Urobilinogen, UA 0.2 0.2 - 12 mg/dL [facility] US OB ANATOMYon 03-21-2025 [place] [address] Ultrasound Report Signed Patient: ANGELA REYES MR#: [id number] : 1990 Acct:[id number] Age/Sex: 35 / F ADM Date: 03/20/25 Loc: US Attending Dr: Deisy Villar Ordering Physician: Deisy Villar Date of Service: 03/20/25 Procedure(s): US OB anatomy Accession Number(s): [id number] cc: Deisy Villar; Robles Charles D.O. The [address] [address] Patient Name: ANGELA REYES MRN: [facility]:[id number] date: 1990 Sex: F Assigned Patient Location: Current Patient Location: Accession/Order Number: [id number] Exam Date: 03/21/2025 13:12 Report Date: 03/21/2025 [...] Aguilar Durand M.D.03/21/2025 1:16 PM Dictation Location: [place] [address] Electronically authenticated by: [id number] Y Date: 03/21/2025 13:16 Dictated By: Aguilar Durand D.O. Signed By: 03/21/25 1319 DD/ 1316 TD/TT: Editing Internship: [facility] Radiology, Radiologbrittanie pa MD - 03/21/[address] [address] Ultrasound Report Signed Patient: ANGELA REYES MR#: [id number] : 1990 Acct:[id number] Age/Sex: 35 / F ADM Date: 03/20/25 Loc: US Attending Dr: Deisy Villar Ordering Physician: Deisy Villar Date of Service: 03/20/25 Procedure(s): US OB anatomy Accession Number(s): [id number] cc: Deisy Villar; Robles Charles D.O. [address] [address] Patient Name: ANGELA REYES MRN: [id number]:[id number] date: 1990 Sex: F Assigned Patient Location: US Current Patient Location: Accession/Order Number: [id number] Exam Date: 03/21/2025 13:12 Report Date: 03/21/2025 [...] Aguilar Durand M.D.03/21/2025 1:16 PM Dictation Location: [employer] Electronically authenticated by: [id number] Y Date: 03/21/2025 13:16 Dictated By: Aguilar Durand D.O. Signed By: 03/21/25 1319 DD/ 15 TD/TT: Editing Internship: [facility] Radiology Study observation (narrative) [facility] US OB ANATOMYOrdered By: Chepe iologdarwin Radiology on 03-21-2025 [facility] Work Phone: US OB CERVICAL LENGTHon 03-01 [place] [address] Ultrasound Report Signed Patient: ANGELA REYES MR#: [id number] : 1990 Acct:[id number] Age/Sex: 35 / F ADM Date: 03/20/25 Loc: US Attending Dr: Deisy Villar Ordering Physician: Deisy Villar Date of Service: 03/20/25 Procedure(s): US OB cervical length Accession Number(s): [id number] cc: Deisy Villar; Robles Charles D.O. [place] [id number] Patient Name: ANGELA REYES MRN: [facility]:[id number] date: 1990 Sex: F Assigned Patient Location: US Current Patient Location: Accession/Order Number: [id number] Exam Date: 03/21/2025 09:18 Report Date: 03/21/2025 09:19 At the request of: DEISY VILLAR Procedure: US OB cervical length Ultrasound assessment of the cervical length The cervical length is 3.8 cm. The cervical os is closed. US/US OB cervical length IMPRESSION: #3.8 cm cervical length. Impression dictated by: Aguilar Durand M.D.03/21/2025 9:19 AM Dictation Location: [employer] Electronically authenticated by: [id number] Y Date: 03/21/2025 09:19 Dictated By: Aguilar Durand D.O. Signed By: 03/21/25921 DD/ 8 TD/TT: Editing Internship: [facility] Neelima Wolffogbrittanie pa MD - 03/21/2025 [place] [address] Ultrasound Report Signed Patient: ANGELA REYES MR#: [id number] : 1990 Acct:[id number] Age/Sex: 35 / F ADM Date: 03/20/25 Loc: US Attending Dr: Deisy Villar Ordering Physician: Deisy Villar Date of Service: 03/20/25 Procedure(s): US OB cervical length Accession Number(s): [id number] cc: Deisy Villar; Robles Charles D.O. The [place] [id number] Patient Name: ANGELA REYES MRN: [facility]:[id number] date: 1990 Sex: F Assigned Patient Location: US Current Patient Location: Accession/Order Number: [id number] Exam Date: 03/21/2025 09:18 Report Date: 03/21/2025 09:19 At the request of: DEISY VILLAR Procedure: US OB cervical length Ultrasound assessment of the cervical length The cervical length is 3.8 cm. The cervical os is closed. US/US OB cervical length IMPRESSION: #3.8 cm cervical length. Impression dictated by: Aguilar Durand M.D.03/21/2025 9:19 AM Dictation Location: [place] [address] Electronically authenticated by: [id number] Y Date: 03/21/2025 09:19 Dictated By: Aguilar Durand D.O. Signed By: 03/21/25921 DD/ 8 TD/TT: Editing Internship: [facility] Radiology Study observation (narrative) [facility] US OB CERVICAL LENGTHOrdered By: Radiologist Radiology on 03-21-2025 [facility] Work Phone: IGP,APTIMA HPV,AGE GDLNon 04 --2025 AGE GDLN ACOG TESTING Note . [facility] Comment on above: TESTS RESULT FLAG UN ITS REF RANGE LAB Clinician Provided Cytology Information Source.............Cervix Other.............. No. of containers..01 ThinPrep Vial Age Algo ACOG Lara... 30 FLAG LEGEND: L-Low Normal,H-High Normal,LL-Alert Low,HH-Alert High <-Panic Low,>-Panic High,A-Abnormal,AA-Critical Abnormal Performed at: 01 =G [address] [address] Ilana Heath MD, HPV APTIMA Negative Negative [facility] Comment on above: This nucleic acid am plification test detects fourteen high- risk HPV types (16,18,31,33,35,39,45,51,52,56,58,59,66,68) without differentiation. Performed at: =[address] [id number] Photo Tube Assembler: Ilana Heath MD, Phone: [phone] Performed at: [address] [id number] Photo Tube Assembler: Ilana Heath MD, Phone: [phone] IGP, APTIMA HPV, RFX 16/18,[address] [facility] Comment on above: TESTS RESULT FLAG UN ITS REF RANGE LAB DIAGNOSIS: 02 NEGATIVE FOR INTRAEPITHELIAL LESION OR MALIGNANCY. 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 Specimen adequacy: 02 Satisfactory for evaluation. No endocervical component is identified. Performed by: 03 Eugenia Kennedy, Chandelier Maker (ASCP) QC reviewed by: 02 Meredith Chávez, Microphone Boom Operator . 02 Note: Note 02 [...] High,A-Abnormal,AA-Critical Abnormal Performed at: 02 WB [facility] [address] [address] Ilana Heath MD, 03 KWCYT [facility] [place] [facility] [address] [place] [id number] Lloyd Kim MD, SPATULA-ALONE CERVIX [facility]INISY[facility] RECURRENT VAGINITIS (HTRX)on 03-03-[address] [facility] ATOPOBIUM VAGINAE Not detected [facility] BVAB 2,3 (BACTERIAL VAGINOSIS ASSOCIATED BACTERIA 2, 3); MOBILUNCUS SPP 0 [facility] BVAB 2,3 (BACTERIAL VAGINOSIS ASSOCIATED BACTERIA 2, 3); MOBILUNCUS SPP Not detected [facility] ANEUDY ALBICANS, PARAPSILOSIS, TROPICALIS 0 [facility] ANEUDY ALBICANS, PARAPSILOSIS, TROPICALIS Not detected [facility] ANEUDY GLABRATA 0 [facility] ANEUDY GLABRATA Not detected [facility] ANEUDY KRUSEI 0 [facility] ANEUDY KRUSEI Not detected [facility] CHLAMYDIA TRACHOMATIS 0 [facility] CHLAMYDIA TRACHOMATIS Not detected N [facility] GARDNERELLA VAGINALIS 0 [facility] GARDNERELLA VAGINALIS Not detected N [facility] MEGASPHAERA (TYPES 1, 2) 0 [facility] MEGASPHAERA (TYPES 1, 2) Not detected [facility] MYCOPLASMA GENITALIUM 0 [facility] MYCOPLASMA GENITALIUM Not detected N [facility] NEISSERIA GONORRHOEAE 0 [facility] NEISSERIA GONORRHOEAE Not detected N [facility] TRICHOMONAS VAGINALIS 0 [facility] TRICHOMONAS VAGINALIS Not detected N [facility] Urinalysis macro (dipstick) panel (U)on 03-02-2025 Bilirubin, UA Negative Negative - 4(70) +++ mg/dL [facility] Blood, UA Negative Negative - 50 Ezequiel/mcL [facility] Clarity, UA Clear [facility] Color, UA Yellow [facility] Glucose, UA Negative Negative - 1999(110) ++++ mg/dL [facility] Interpretation and review of laboratory results Normal [facility] Ketones, UA Negative Negative - 160(16) ++++ mg/dL [facility] Leukocytes, UA Negative Negative - 500+++ Jason/mcL [facility] Nitrite, UA Negative Negative - Positive [facility] pH, UA 7 5 - 9 [facility] Protein, UA Negative Negative - 1999(20) ++++ mg/dL [facility] Spec Grav, UA 1.02 1 - 1.03 [facility] Urobilinogen, UA 0.2 0.2 - 12 mg/dL [facility] Urinalysis macro (dipstick) panel (U)on 02-02-2025 Bilirubin, UA Negative Negative - 4(70) +++ mg/dL [facility] Blood, UA Negative Negative - 50 Ezequiel/mcL [facility] Clarity, UA Clear [facility] Color, UA Yellow [facility] Glucose, UA Negative Negative - 1999(110) ++++ mg/dL [facility] Interpretation and review of laboratory results Abnormal [facility] Ketones, UA Negative Negative - 160(16) ++++ mg/dL [facility] Leukocytes, UA Trace Negative - 500+++ Jason/mcL [facility] Nitrite, UA Negative Negative - Positive [facility] pH, UA 6 5 - 9 [facility] Protein, UA Negative Negative - 1999(20) ++++ mg/dL [facility] Spec Grav, UA 1.025 1 - 1.03 [facility] Urobilinogen, UA 0.2 0.2 - 12 mg/dL [facility] ALL CBC WITH AUTO DIFFon BASOPHILS ABSOLUTE AUTO 0 N [facility] Basophils/100 WBC (Bld) 0.4 % 0.2 - 2.0 % [facility] Eosinophils/100 WBC (Bld) 2.2 % 0.9 - 7.0 % [facility] Erythrocyte distribution width (RBC) [Ratio] 12.5 % 11.0 - 15.0 % [facility] Hematocrit (Bld) [Volume fraction] 34 % Low 36.0 - 48.0 % [facility] Hemoglobin (Bld) [Mass/Vol] 11.7 g/dL Low 12.0 - 16.0 g/dL [facility] IMMATURE GRANULOCYTES ABS AUTO 0.03 [facility] Immature granulocytes/100 WBC (Bld) 0.4 % 0.0 - 0.5 % [facility] Interpretation and review of laboratory results Abnormal [facility] LYMPHOCYTES ABSOLUTE AUTO 1.6 [facility] Lymphocytes/100 WBC (Bld) 20.4 % Low 20.5 - 60.0 % [facility] MCH (RBC) [Entitic mass] 31.5 pg 26.7 - 34.[address] [facility] MCHC (RBC) [Mass/Vol] 34.4 g/dL 29.9 - 35.2 g/dL [facility] MCV (RBC) [Entitic vol] 91.6 fL 81.0 - 99.[address] [facility] MONOCYTES ABSOLUTE AUTO 0.6 N [facility] Monocytes/100 WBC (Bld) 7.2 % 1.7 - 12.0 % [facility] NEUTROPHILS ABSOLUTE AUTO 5.6 [facility] Neutrophils/100 WBC (Bld) 69.4 % 43.0 - 75.0 % [facility] Platelet mean volume (Bld) [Entitic vol] 9.6 fL 9.5 - 13.5 fL [facility] EO # 0.2 [facility] TB PLT 302 [facility] RBC 3.71 Low [facility] WBC 8 [facility] CLINISYNC [facility] US OB TRANSVAGINALon 025 US [...] II, MD, PHD at 09-Jan-2025 09:10:54 AM [facility] Normal Not Available Comment on above: Order Comment: US OB TRANSVAGINAL No LMP recorded. [facility] PREG QUANT HCGon 025 HCG QUANTITATIVE 35987 mIU/mL [facility] Comment on above: 5-50 0.2-1 WEEK 50-500 1-2 WEEKS 100-5,000 2-3 WEEKS 500-10,000 3-4 WEEKS 1,000-50,000 4-5 WEEKS 10,000-100,000 5-6 WEEKS 15,000-200,000 6-8 WEEKS 10,000-100,000 2-3 [facility] [place] [facility] PREG QUANT HCGon 025 HCG QUANTITATIVE 40975 mIU/mL [facility] Comment on above: 5-50 0.2-1 WEEK 50-500 1-2 WEEKS 100-5,000 2-3 WEEKS 500-10,000 3-4 WEEKS 1,000-50,000 4-5 WEEKS 10,000-100,000 5-6 WEEKS 15,000-200,000 6-8 WEEKS 10,000-100,000 2[facility] %Ordered By: Delano Francis on 09-22-2024 Basophils/100 WBC (Bld) 0.6 % Normal . [facility] Comment on above: Performed By: #### D HEAS, LC T4, [id number], SEROTON, TEST F + T, T3R, THYGLOB AB, ESTRADIOL, TPO, SHBG, ESTRONE, INSULIN, PROG #### [facility] , #### T4F, TRISTEN, TSH3, A1C WTH eA, FILIBERTO, GLU, T3F #### [address] Automated basophil countOrde red By: Delano Francis on 09-22-2024 Basophils (Bld) [#/Vol] 0.0 10*3/uL Normal 0.0-0.[address] [facility] Comment on above: Result Comment: PERF ORMED BY: [place] [address] PATHOLOGIST [employer] JOSE GOEL M.D. Performed By: #### D HEAS, LC T4, [id number], SEROTON, TEST F + T, T3R, THYGLOB AB, ESTRADIOL, TPO, SHBG, ESTRONE, INSULIN, PROG #### [facility] , #### T4F, TRISTEN, TSH3, A1C WTH eA, FILIBERTO, GLU, T3F #### [facility] [address] [place] [address] Automated blood monocyte cou ntOrdered By: Delano Francis on 09-22-2024 Monocytes (Bld) [#/Vol] 0.4 10*3/uL Normal 0.0-0.[address] [facility] Comment on above: Performed By: #### D HEAS, LC T4, [id number], SEROTON, TEST F + T, T3R, THYGLOB AB, ESTRADIOL, TPO, SHBG, ESTRONE, INSULIN, PROG #### [facility] , #### T4F, TRISTEN, TSH3, A1C WTH eA, FILIBERTO, GLU, T3F #### [address] Automated eosinophil %Ordere d By: Delano Francis on 09-22-2024 Eosinophils/100 WBC (Bld) 1.7 % Normal . [facility] Comment on above: Performed By: #### D HEAS, LC T4, [id number], SEROTON, TEST F + T, T3R, THYGLOB AB, ESTRADIOL, TPO, SHBG, ESTRONE, INSULIN, PROG #### [facility] , #### T4F, TRISTEN, TSH3, A1C WTH eA, FILIBERTO, GLU, T3F #### [address] Automated eosinophil countOr dered By: Delano Francis on 09-22-2024 Eosinophils (Bld) [#/Vol] 0.1 10*3/uL Normal 0.0-0.[address] [facility] Comment on above: Performed By: #### D HEAS, LC T4, [id number], SEROTON, TEST F + T, T3R, THYGLOB AB, ESTRADIOL, TPO, SHBG, ESTRONE, INSULIN, PROG #### [facility] , #### T4F, TRISTEN, TSH3, A1C WTH eA, FILIBERTO, GLU, T3F #### [facility] [address] Automated monocyte %Ordered By: Delano Francis on 09-22-2024 Monocytes/100 WBC (Bld) 8.7 % Normal . [facility] Comment on above: Performed By: #### D HEAS, LC T4, [id number], SEROTON, TEST F + T, T3R, THYGLOB AB, ESTRADIOL, TPO, SHBG, ESTRONE, INSULIN, PROG #### [facility] , #### T4F, TRISTEN, TSH3, A1C WTH eA, FILIBERTO, GLU, T3F #### [facility] [address] Automated neutrophil %Ordere d By: Dleano Francis on 09-22-2024 Neutrophils/100 WBC (Bld) 63.7 % Normal . [facility] Comment on above: Performed By: #### D HEAS, LC T4, [id number], SEROTON, TEST F + T, T3R, THYGLOB AB, ESTRADIOL, TPO, SHBG, ESTRONE, INSULIN, PROG #### [facility] , #### T4F, TRISTEN, TSH3, A1C WTH eA, FILIBERTO, GLU, T3F #### [facility] [address] Basophils Auto (Bld) [#/Vol] Ordered By: Delano Francis on 09-22-2024 Basophils (Bld) [#/Vol] Automated basophil count 0.0-0.[address] [facility] Basophils/100 WBC Auto (Bld) Ordered By: Delano Francis on 09-22-2024 Basophils/100 WBC (Bld) Automated basophil % . [facility] Calcium [Mass/volume] in Ser um or PlasmaOrdered By: Delano Francis on 09-22-2024 Calcium [Mass/Vol] 9.4 mg/dL Normal 8.6-10.3 [facility] Comment on above: Performed By: #### D HEAS, LC T4, [id number], SEROTON, TEST F + T, T3R, THYGLOB AB, ESTRADIOL, TPO, SHBG, ESTRONE, INSULIN, PROG #### [facility] , #### T4F, TRISTEN, TSH3, A1C WTH eA, FILIBERTO, GLU, T3F #### [facility] [address] Calcium [Mass/Vol] Calcium [Mass/volume ] in Serum or Plasma 8.6-10.[address] [facility] Carbon dioxide, total [Moles /volume] in Serum or PlasmaOrdered By: Delano Francis on 09-22-2024 CO2 [Moles/Vol] 29.2 mmol/L Normal 21.0-31.0 [facility] Comment on above: Performed By: #### D VENITA, LC T4, [id number], SEROTON, TEST F + T, T3R, THYGLOB AB, ESTRADIOL, TPO, SHBG, ESTRONE, INSULIN, PROG #### [facility] , #### T4F, TRISTEN, TSH3, A1C WTH eA, FILIBERTO, GLU, T3F #### [place] [address] [place] CO2 [Moles/Vol] Carbon dioxide, tota l [Moles/volume] in Serum or Plasma 21.0-31.[address] [facility] Chloride [Moles/volume] in S stevo or PlasmaOrdered By: Delano Francis on 09-22-2024 Chloride [Moles/Vol] 105 mmol/L Normal 98-107 [facility] Comment on above: Performed By: #### D HEAS, LC T4, [id number], SEROTON, TEST F + T, T3R, THYGLOB AB, ESTRADIOL, TPO, SHBG, ESTRONE, INSULIN, PROG #### [facility] , #### T4F, TRISTEN, TSH3, A1C WTH eA, FILIBERTO, GLU, T3F #### [facility] [address] [place] [address] [place] Chloride [Moles/Vol] Chloride [Moles/vol ume] in Serum or Plasma 98-[address] [facility] Cholesterol [Mass/volume] in Serum or PlasmaOrdered By: Delano Francis on 09-22-2024 Cholesterol [Mass/Vol] 217 mg/dL High 140-200 [facility] Comment on above: Chol less than 200 m g/dl low riskChol 201-239 mg/dl borderline riskChol 240 mg/dl and greater high risk Result Comment: Chol less than 200 mg/dl low risk Chol 201-239 mg/dl borderline risk Chol 240 mg/dl and greater high risk Performed By: #### D HEAS, LC T4, [id number], SEROTON, TEST F + T, T3R, THYGLOB AB, ESTRADIOL, TPO, SHBG, ESTRONE, INSULIN, PROG #### [facility] , #### T4F, TRISTEN, TSH3, A1C WTH eA, FILIBERTO, GLU, T3F #### [address] Cholesterol [Mass/Vol] Cholesterol [Mass/volume] in Serum or Plasma High 140-[address] [facility] Comment on above: Chol less than 200 m g/dl low riskChol 201-239 mg/dl borderline riskChol 240 mg/dl and greater high risk Cholesterol in HDL [Mass/vol ume] in Serum or PlasmaOrdered By: Delano Francis on 09-22-2024 Cholesterol in HDL [Mass/Vol] Serum or plasma high density lipoprotein (HDL) cholesterol measurement 23-[address] [facility] Comment on above: HDL CHOL ATP-III CLA SSIFICATION Cardiovascular RiskHDL > or equal to 60 mg/dL LOWHDL < 40 mg/dL HIGH Cholesterol in LDL Calc [Mas s/Vol]Ordered By: Delano Francis on 09-22-2024 Cholesterol in LDL [Mass/Vol] 148 mg/dL High 0-[address] [facility] Comment on above: LDL ATP III CLASSIFI CATIONLDL less than 100 mg/dL OptimalLDL 100-129 mg/dL Near or above optimalLDL 130-159 mg/dL Borderline highLDL 160-189 mg/dL HighLDL greater than 189 mg/dL Very high Cholesterol in LDL [Mass/Vol] Cholesterol in LDL [Mass/volume] in Serum or Plasma by calculation High 0-[address] [facility] Comment on above: LDL ATP III CLASSIFI CATIONLDL less than 100 mg/dL OptimalLDL 100-129 mg/dL Near or above optimalLDL 130-159 mg/dL Borderline highLDL 160-189 mg/dL HighLDL greater than 189 mg/dL Very high Cholesterol in VLDL Calc [Ma ss/Vol]Ordered By: Delano Francis on 09-22-2024 Cholesterol in VLDL [Mass/Vol] 10 mg/dL [facility] Cholesterol in VLDL [Mass/Vol] Cholesterol in VLDL [Mass/volume] in Serum or Plasma by calculation [facility] Creatinine [Mass/volume] in Serum or PlasmaOrdered By: Delano Francis on 09-22-2024 Creatinine [Mass/Vol] 0.73 mg/dL Normal 0.60-1.20 [facility] Comment on above: Performed By: #### D VENITA, JOSSE T4, [id number], SEROTON, TEST F + T, T3R, THYGLOB AB, ESTRADIOL, TPO, SHBG, ESTRONE, INSULIN, PROG #### [facility] , #### T4F, TRISTEN, TSH3, A1C WTH eA, FILIBERTO, GLU, T3F #### [facility] [address] Creatinine [Mass/Vol] Creatinine [Mass/v olume] in Serum or Plasma 0.60-1.[address] [facility] Employee Basic Metabolic Olvera stewart 09-22-2024 GFR/1.73 sq M.predicted MDRD (S/P/Bld) [Vol rate/Area] mL/min/{1.73_m2} Normal [facility] Comment on above: Performed By: #### D VENITA, LC T4, [id number], SEROTON, TEST F + T, T3R, THYGLOB AB, ESTRADIOL, TPO, SHBG, ESTRONE, INSULIN, PROG #### [facility] , #### T4F, TRISTEN, TSH3, A1C WTH eA, FILIBERTO, GLU, T3F #### [facility] [address] Employee Complete Blood Coun [facility] 09-22-2024 Mean Corpuscular HGB Conc 34.2 g/dL Normal 32.0-35.0 [facility] Comment on above: Performed By: #### D HEAS, LC T4, [id number], SEROTON, TEST F + T, T3R, THYGLOB AB, ESTRADIOL, TPO, SHBG, ESTRONE, INSULIN, PROG #### [facility] , #### T4F, TRISTEN, TSH3, A1C WTH eA, FILIBERTO, GLU, T3F #### [facility] [address] NRBC% 0.0 /100{WBC} Normal 0-0.5 [facility] Comment on above: Performed By: #### D HEAS, LC T4, [id number], SEROTON, TEST F + T, T3R, THYGLOB AB, ESTRADIOL, TPO, SHBG, ESTRONE, INSULIN, PROG #### [facility] , #### T4F, TRISTEN, TSH3, A1C WTH eA, FILIBERTO, GLU, T3F #### [facility] [address] Employee Lipid Profileon LDL Cholesterol,Calculated 148 mg/dL High 0-100 [facility] Comment on above: Result Comment: LDL ATP III CLASSIFICATION LDL less than 100 mg/dL Optimal LDL 100-129 mg/dL Near or above optimal LDL 130-159 mg/dL Borderline high LDL 160-189 mg/dL High LDL greater than 189 mg/dL Very high Performed By: #### D DANIELLEAS, LC T4, [id number], SEROTON, TEST F + T, T3R, THYGLOB AB, ESTRADIOL, TPO, SHBG, ESTRONE, INSULIN, PROG #### [facility] , #### T4F, TRISTEN, TSH3, A1C WTH eA, FILIBERTO, GLU, T3F #### [facility] [address] Triglyceride w/Reflex 52 mg/dL Normal 0-149 [facility] Comment on above: Result Comment: TRIG ATP III CLASSIFICATION TRIG less than 150 mg/dL Normal TRIG 150-199 mg/dL Borderline high TRIG 200-500 mg/dL High TRIG greater than 500 mg/dL Very high Standard traceable to the Center for Disease Conrtrol and Prevention (CDC) test method. Performed By: #### D HEAS, LC T4, [id number], SEROTON, TEST F + T, T3R, THYGLOB AB, ESTRADIOL, TPO, SHBG, ESTRONE, INSULIN, PROG #### [facility] , #### T4F, TRISTEN, TSH3, A1C WTH eA, FILIBERTO, GLU, T3F #### [address] VLDL CHOLESTEROL 10 mg/dL Normal [facility] Comment on above: Performed By: #### D DANIELLEAS, LC T4, [id number], SEROTON, TEST F + T, T3R, THYGLOB AB, ESTRADIOL, TPO, SHBG, ESTRONE, INSULIN, PROG #### [facility] , #### T4F, TRISTEN, TSH3, A1C WTH eA, FILIBERTO, GLU, T3F #### [address] Employee Thyroid Stim Horm[employer] lonnie 09-22-2024 Employee Thyroid Stim [employer]ormone 2.30 u[iU]/mL Normal 0.45-5.33 [facility] Comment on above: Result Comment: PERF ORMED BY: [place] [address] PATHOLOGIST GAS SINGER JOSE GOEL M.D. Performed By: #### D HEAS, LC T4, [id number], SEROTON, TEST F + T, T3R, THYGLOB AB, ESTRADIOL, TPO, SHBG, ESTRONE, INSULIN, PROG #### [facility] , #### T4F, TRISTEN, TSH3, A1C WTH eA, FILIBERTO, GLU, T3F #### [address] Eosinophils Auto (Bld) [#/Vo l]Ordered By: Delano Francis on 09-22-2024 Eosinophils (Bld) [#/Vol] Automated eosinophil count 0.0-0.[address] [facility] Eosinophils/100 WBC Auto (Bl d)Ordered By: Delano Francis on 09-22-2024 Eosinophils/100 WBC (Bld) Automated eosinophil % . [facility] Erythrocyte distribution wid th Auto (RBC) [Ratio]Ordered By: Delano Francis on 09-22-2024 Erythrocyte distribution width (RBC) [Ratio] Erythrocyte distribution width [Ratio] by Automated count 11.9-15.[address] [facility] Erythrocyte distribution wid th [Ratio] by Automated countOrdered By: Delano Francis on 09-22-2024 Erythrocyte distribution width (RBC) [Ratio] 13.2 % Normal 11.9-15.[address] [facility] Comment on above: Performed By: #### D HEAS, LC T4, [id number], SEROTON, TEST F + T, T3R, THYGLOB AB, ESTRADIOL, TPO, SHBG, ESTRONE, INSULIN, PROG #### [facility] , #### T4F, TRISTEN, TSH3, A1C WTH eA, FILIBERTO, GLU, T3F #### [facility] [address] [place] [address] [place] Erythrocytes [#/volume] in B lood by Automated countOrdered By: Delano Francis on 09-22-2024 RBC (Bld) [#/Vol] 3.91 10*6/uL Normal 3.60-5.00 [facility] Comment on above: Performed By: #### D HEAS, LC T4, [id number], SEROTON, TEST F + T, T3R, THYGLOB AB, ESTRADIOL, TPO, SHBG, ESTRONE, INSULIN, PROG #### [facility] , #### T4F, TRISTEN, TSH3, A1C WTH eA, FILIBERTO, GLU, T3F #### [facility] [address] [place] [address] [place] Glucose [Mass/volume] in Ser um or PlasmaOrdered By: Delano Francis on 09-22-2024 Glucose [Mass/Vol] 83 mg/dL Normal 70-100 [facility] Comment on above: Performed By: #### D HEAS, LC T4, [id number], SEROTON, TEST F + T, T3R, THYGLOB AB, ESTRADIOL, TPO, SHBG, ESTRONE, INSULIN, PROG #### [facility] , #### T4F, TRISTEN, TSH3, A1C WTH eA, FILIBERTO, GLU, T3F #### [address] Glucose [Mass/Vol] Glucose [Mass/volume ] in Serum or Plasma 70-[address] [facility] Hematocrit Auto (Bld) [Volum e fraction]Ordered By: Delano Francis on 09-22-2024 Hematocrit (Bld) [Volume fraction] Hematocrit [Volume Fraction] of Blood by Automated count 34.0-46.[address] [facility] Hematocrit [Volume Fraction] of Blood by Automated countOrdered By: Delano Francis on 09-22-2024 Hematocrit (Bld) [Volume fraction] 35.9 % Normal 34.0-46.[address] [facility] Comment on above: Performed By: #### D VENITA, LC T4, [id number], SEROTON, TEST F + T, T3R, THYGLOB AB, ESTRADIOL, TPO, SHBG, ESTRONE, INSULIN, PROG #### [facility] , #### T4F, TRISTEN, TSH3, A1C WTH eA, FILIBERTO, GLU, T3F #### [place] [address] [place] Hemoglobin [Mass/volume] in BloodOrdered By: Delano Francis on 09-22-2024 Hemoglobin (Bld) [Mass/Vol] 12.3 g/dL Normal 11.8-15.[address] [facility] Comment on above: Performed By: #### D HEAS, LC T4, [id number], SEROTON, TEST F + T, T3R, THYGLOB AB, ESTRADIOL, TPO, SHBG, ESTRONE, INSULIN, PROG #### [facility] , #### T4F, TRISTEN, TSH3, A1C WTH eA, FILIBERTO, GLU, T3F #### [address] Hemoglobin (Bld) [Mass/Vol] Hemoglobin [Mass/volume] in Blood 11.8-15.[address] [facility] Leukocytes [#/volume] correc calvin for nucleated erythrocytes in Blood by Automated counOrdered By: Delano Francis on 09-22-2024 WBC corrected for nucl RBC Auto (Bld) [#/Vol] 5.1 10*3/uL 3.8-11.[address] [facility] WBC corrected for nucl RBC Auto (Bld) [#/Vol] Leukocytes [#/volume] corrected for nucleated erythrocytes in Blood by Automated coun 3.8-11.[address] [facility] Leukocytes [#/volume] in Blo od by Automated countOrdered By: Delano Francis on 09-22-2024 WBC (Bld) [#/Vol] 5.1 10*3/uL Normal 3.8-11.6 [facility] Comment on above: Performed By: #### D DANIELLEAS, LC T4, [id number], SEROTON, TEST F + T, T3R, THYGLOB AB, ESTRADIOL, TPO, SHBG, ESTRONE, INSULIN, PROG #### [facility] , #### T4F, TRISTEN, TSH3, A1C WTH eA, FILIBERTO, GLU, T3F #### [address] Lymphocytes Auto (Bld) [#/Vo l]Ordered By: Delano Francis on 09-22-2024 Lymphocytes (Bld) [#/Vol] Lymphocytes [#/volume] in Blood by Automated count .00-.[address] [facility] Lymphocytes [#/volume] in Bl ood by Automated countOrdered By: Delano Francis on 09-22-2024 Lymphocytes (Bld) [#/Vol] 1.3 10*3/uL Normal 1.00-4.[address] [facility] Comment on above: Performed By: #### D HEAS, LC T4, [id number], SEROTON, TEST F + T, T3R, THYGLOB AB, ESTRADIOL, TPO, SHBG, ESTRONE, INSULIN, PROG #### [facility] , #### T4F, TRISTEN, TSH3, A1C WTH eA, FILIBERTO, GLU, T3F #### [facility] [address] Lymphocytes/100 WBC Auto (Bl d)Ordered By: Delano Francis on 09-22-2024 Lymphocytes/100 WBC (Bld) Lymphocytes/100 leukocytes in Blood by Automated count . [facility] Lymphocytes/100 leukocytes i n Blood by Automated countOrdered By: Delano Francis on 09-22-2024 Lymphocytes/100 WBC (Bld) 25.3 % Normal . [facility] Comment on above: Performed By: #### D HEAS, LC T4, [id number], SEROTON, TEST F + T, T3R, THYGLOB AB, ESTRADIOL, TPO, SHBG, ESTRONE, INSULIN, PROG #### [facility] , #### T4F, TRISTEN, TSH3, A1C WTH eA, FILIBERTO, GLU, T3F #### [facility] [address] [place] [address] MCH Auto (RBC) [Entitic mass ]Ordered By: Delano Francis on 09-22-2024 MCH (RBC) [Entitic mass] MCH [Entitic mass] by Automated count 24.7-34.[address] [facility] MCH [Entitic mass] by Automa calvin countOrdered By: Delano Francis on 09-22-2024 MCH (RBC) [Entitic mass] 31.4 pg Normal 24.7-34.[address] [facility] Comment on above: Performed By: #### D HEAS, LC T4, [id number], SEROTON, TEST F + T, T3R, THYGLOB AB, ESTRADIOL, TPO, SHBG, ESTRONE, INSULIN, PROG #### [facility] , #### T4F, TRISTEN, TSH3, A1C WTH eA, FILIBERTO, GLU, T3F #### [facility] [address] [place] [address] MCHC Auto (RBC) [Mass/Vol]Or dered By: Delano Francis on 09-22-2024 MCHC (RBC) [Mass/Vol] 34.2 g/dL 32.0-35.0 [facility] MCHC (RBC) [Mass/Vol] MCHC [Mass/volume] by Automated count 32.0-35.[address] [facility] MCV Auto (RBC) [Entitic vol] Ordered By: Delano Francis on 09-22-2024 MCV (RBC) [Entitic vol] MCV [Entitic vol ume] by Automated count 80-[address] [facility] MCV [Entitic volume] by Auto mated countOrdered By: Delano Francis on 09-22-2024 MCV (RBC) [Entitic vol] 91.7 fL Normal 80-100 [facility] Comment on above: Performed By: #### D HEAS, LC T4, [id number], SEROTON, TEST F + T, T3R, THYGLOB AB, ESTRADIOL, TPO, SHBG, ESTRONE, INSULIN, PROG #### [facility] , #### T4F, TRISTEN, TSH3, A1C WTH eA, FILIBERTO, GLU, T3F #### [facility] [address] Monocytes Auto (Bld) [#/Vol] Ordered By: Delano Francis on 09-22-2024 Monocytes (Bld) [#/Vol] Automated blood monocyte count 0.0-0.[address] [facility] Monocytes/100 WBC Auto (Bld) Ordered By: Delano Francis on 09-22-2024 Monocytes/100 WBC (Bld) Automated monocyte % . [facility] Neutrophils Auto (Bld) [#/Vo l]Ordered By: eDlano Francis on 09-22-2024 Neutrophils (Bld) [#/Vol] Neutrophils [#/volume] in Blood by Automated count 1.8-7.[address] [facility] Neutrophils [#/volume] in Bl ood by Automated countOrdered By: Delano Francis on 09-22-2024 Neutrophils (Bld) [#/Vol] 3.2 10*3/uL Normal 1.8-7.[address] [facility] Comment on above: Performed By: #### D HEAS, LC T4, [id number], SEROTON, TEST F + T, T3R, THYGLOB AB, ESTRADIOL, TPO, SHBG, ESTRONE, INSULIN, PROG #### [facility] , #### T4F, TRISTEN, TSH3, A1C WTH eA, FILIBERTO, GLU, T3F #### [facility] [address] [place] [address] [place] Neutrophils/100 WBC Auto (Bl d)Ordered By: Delano Francis on 09-22-2024 Neutrophils/100 WBC (Bld) Automated neutrophil % . [facility] No Panel InformationOrdered By: Delano Francis on 09-22-2024 Estimated GFR (CKD-EPI) > 60.0 mL/Min [facility] Creatinine Clearance (Chem N/A [facility] Nucleated erythrocytes [Pres ence] in Blood by Automated countOrdered By: Delano Francis on 09-22-2024 Nucleated RBC Auto Ql (Bld) 0.0 /100{WBC} 0-0.[address] [facility] Nucleated RBC Auto Ql (Bld) Nucleated erythrocytes [Presence] in Blood by Automated count 0-0.[address] [facility] Platelet mean volume Auto (B ld) [Entitic vol]Ordered By: Delano Francis on 09-22-2024 Platelet mean volume (Bld) [Entitic vol] Platelet mean volume [Entitic volume] in Blood by Automated count 6.3-10.[address] [facility] Platelet mean volume [Entiti c volume] in Blood by Automated countOrdered By: Delano Francis on 09-22-2024 Platelet mean volume (Bld) [Entitic vol] 7.3 fL Normal 6.3-10.[address] [facility] Comment on above: Performed By: #### D HEAS, T4, [id number], SEROTON, TEST F + T, T3R, THYGLOB AB, ESTRADIOL, TPO, SHBG, ESTRONE, INSULIN, PROG #### [facility] , #### T4F, TRISTEN, TSH3, A1C WTH eA, FILIBERTO, GLU, T3F #### [facility] [address] [place] [address] [place] Platelets Auto (Bld) [#/Vol] Ordered By: Delano Francis on 09-22-2024 Platelets (Bld) [#/Vol] Platelets [#/vol ume] in Blood by Automated count 150-[address] [facility] Platelets [#/volume] in Bloo d by Automated countOrdered By: Delano Francis on 09-22-2024 Platelets (Bld) [#/Vol] 328 10*3/uL Normal 150-[address] [facility] Comment on above: Performed By: #### D HEAS, LC T4, [id number], SEROTON, TEST F + T, T3R, THYGLOB AB, ESTRADIOL, TPO, SHBG, ESTRONE, INSULIN, PROG #### [facility] , #### T4F, TRISTEN, TSH3, A1C WTH eA, FILIBERTO, GLU, T3F #### [facility] [address] [id number] [place] Potassium [Moles/volume] in Serum or PlasmaOrdered By: Delano Francis on 09-22-2024 Potassium [Moles/Vol] 4.5 mmol/L Normal 3.5-5.1 [facility] Comment on above: Performed By: #### D HEAS, LC T4, [id number], SEROTON, TEST F + T, T3R, THYGLOB AB, ESTRADIOL, TPO, SHBG, ESTRONE, INSULIN, PROG #### [facility] , #### T4F, TRISTEN, TSH3, A1C WTH eA, FILIBERTO, GLU, T3F #### [facility] [address] [place] [address] [place] Potassium [Moles/Vol] Potassium [Moles/v olume] in Serum or Plasma 3.5-5.[address] [facility] RBC Auto (Bld) [#/Vol]Ordere d By: Delano Francis on 09-22-2024 RBC (Bld) [#/Vol] Erythrocytes [#/volu me] in Blood by Automated count 3.60-5.[address] [facility] Serum or plasma anion gap de terminationOrdered By: Delano Francis on 09-22-2024 Anion gap [Moles/Vol] 8.3 mmol/L Normal 6.0-15.0 [facility] Comment on above: Performed By: #### D HEAS, LC T4, [id number], SEROTON, TEST F + T, T3R, THYGLOB AB, ESTRADIOL, TPO, SHBG, ESTRONE, INSULIN, PROG #### [facility] , #### T4F, TRISTEN, TSH3, A1C WTH eA, FILIBERTO, GLU, T3F #### [address] Anion gap [Moles/Vol] Serum or plasma an ion gap determination 6.0-15.[address] [facility] Serum or plasma high density lipoprotein (HDL) cholesterol measurementOrdered By: Delano Francis on 09-22-2024 Cholesterol in HDL [Mass/Vol] 59 mg/dL Normal 23-[address] [facility] Comment on above: HDL CHOL ATP-III CLA SSIFICATION Cardiovascular RiskHDL > or equal to 60 mg/dL LOWHDL < 40 mg/dL HIGH Result Comment: HDL CHOL ATP-III CLASSIFICATION Cardiovascular Risk HDL > or equal to 60 mg/dL LOW HDL < 40 mg/dL HIGH Performed By: #### D HEAS, LC T4, [id number], SEROTON, TEST F + T, T3R, THYGLOB AB, ESTRADIOL, TPO, SHBG, ESTRONE, INSULIN, PROG #### [facility] , #### T4F, TRISTEN, TSH3, A1C WTH eA, FILIBERTO, GLU, T3F #### [address] Serum or plasma total choles terol/high density lipoprotein (HDL) cholesterol mass ratOrdered By: Delano Francis on 09-22-2024 Cholesterol.total/Alivia sterol in HDL [Mass ratio] 3.7 {ratio} Normal <5.[address] [facility] Comment on above: Performed By: #### D HEAS, LC T4, [id number], SEROTON, TEST F + T, T3R, THYGLOB AB, ESTRADIOL, TPO, SHBG, ESTRONE, INSULIN, PROG #### [facility] , #### T4F, TRISTEN, TSH3, A1C WTH eA, FILIBERTO, GLU, T3F #### [address] [place] [address] [facility] Cholesterol.total/Alivia sterol in HDL [Mass ratio] Serum or plasma total cholesterol/high density lipoprotein (HDL) cholesterol mass rat <5.[address] [facility] Sodium [Moles/volume] in Ser um or PlasmaOrdered By: Delano Francis on 09-22-2024 Sodium [Moles/Vol] 138 mmol/L Normal 136-145 [facility] Comment on above: Performed By: #### D HEAS, LC T4, [id number], SEROTON, TEST F + T, T3R, THYGLOB AB, ESTRADIOL, TPO, SHBG, ESTRONE, INSULIN, PROG #### [facility] , #### T4F, TRISTEN, TSH3, A1C WTH eA, FILIBERTO, GLU, T3F #### [facility] [address] [id number] [facility] Sodium [Moles/Vol] Sodium [Moles/volume ] in Serum or Plasma 136-[address] [facility] Thyrotropin [Units/volume] i n Serum or PlasmaOrdered By: Delano Francis on 09-22-2024 TSH Qn 2.30 m[IU]/L 0.45-5.[address] [facility] TSH Qn Thyrotropin [Units/volume] in Serum or Plasma 0.45-5.[address] [facility] Triglyceride [Mass/volume] i n Serum or PlasmaOrdered By: Delano Francis on 09-22-2024 Triglyceride [Mass/Vol] 52 mg/dL 0-149 [facility] Comment on above: TRIG ATP III CLASSIF ICATIONTRIG less than 150 mg/dL NormalTRIG 150-199 mg/dL Borderline highTRIG 200-500 mg/dL High TRIG greater than 500 mg/dL Very highStandard traceable to the Center for Disease Conrtrol and Prevention (CDC) test method. Triglyceride [Mass/Vol] Triglyceride [Mass/volume] in Serum or Plasma 0-[address] [facility] Comment on above: TRIG ATP III CLASSIF ICATIONTRIG less than 150 mg/dL NormalTRIG 150-199 mg/dL Borderline highTRIG 200-500 mg/dL High TRIG greater than 500 mg/dL Very highStandard traceable to the Center for Disease Conrtrol and Prevention (CDC) test method. Urea nitrogen [Mass/volume] in Serum or PlasmaOrdered By: Delano Francis on 09-22-2024 Urea nitrogen [Mass/Vol] 9 mg/dL Normal 06-[address] [facility] Comment on above: Performed By: #### D HESUE, JOSSE T4, [id number], SEROTON, TEST F + T, T3R, THYGLOB AB, ESTRADIOL, TPO, SHBG, ESTRONE, INSULIN, PROG #### [facility] , #### T4F, TRISTEN, TSH3, A1C WTH eA, FILIBERTO, GLU, T3F #### [facility] [address] Urea nitrogen [Mass/Vol] Urea nitrogen [Mass/volume] in Serum or Plasma 06-[address] [facility] WBC Auto (Bld) [#/Vol]Ordere d By: Delano Francis on 09-22-2024 WBC (Bld) [#/Vol] Leukocytes [#/volume ] in Blood by Automated count 3.8-11.[address] [facility] IGP,APTIMA HPV,AGE GDLNon AGE GDLN ACOG TESTING Note . [facility] Comment on above: TESTS RESULT FLAG UN ITS REF RANGE LAB Clinician Provided Cytology Information Source.............Cervix;Endocervix No. of containers..01 ThinPrep Vial Age Algo ACOG Lara... 30 01 FLAG LEGEND: L-Low Normal,H-High Normal,LL-Alert Low,HH-Alert High <-Panic Low,>-Panic High,A-Abnormal,AA-Critical Abnormal Performed at: 01 =[address] [place] [address] Ilana Heath MD, HPV APTIMA Negative Negative [facility] Comment on above: This nucleic acid am plification test detects fourteen high- risk HPV types (16,18,31,33,35,39,45,51,52,56,58,59,66,68) without differentiation. Performed at: =[address] [id number] Photo Tube Assembler: Ilana Heath MD, Phone: [phone] Performed at: [address] [id number] Photo Tube Assembler: Ilana Heath MD, Phone: [phone] IGP, APTIMA HPV, RFX 16/18,[address] [facility] Comment on above: TESTS RESULT FLAG UN ITS REF RANGE LAB DIAGNOSIS: 02 NEGATIVE FOR INTRAEPITHELIAL LESION OR MALIGNANCY. Specimen adequacy: 02 Satisfactory for evaluation. No endocervical component is identified. Performed by: 02 Chema Camargo, Microphone Boom Operator (ASCP) . 02 Note: Note [...] <-Panic Low,>-Panic High,A-Abnormal,AA-Critical Abnormal Performed at: [address] [address] Ilana Heath MD, BRUSH-SPATULA CERVIX ENDOCERVIX CLINISYNC [facility] 1,25 Dihydroxy Vit D Calcitr olon 01-07-2024 1,25 Dihydroxy Vit D Calcitrol 56.6 pg/mL Normal 24.8-81.5 [facility] Comment on above: Result Comment: Perf ormed at: - [facility] [address] [id number] Photo Tube Assembler: Quinton Wolf MD, Phone: [phone] Performed By: #### JOSSE SMITH T4, [id number], SEROTON, TEST F + T, T3R, THYGLOB AB, ESTRADIOL, TPO, SHBG, ESTRONE, INSULIN, PROG #### [facility] , #### T4F, TRISTEN, TSH3, A1C WTH eA, FILIBERTO, GLU, T3F #### [facility] [address] [place] [address] [place] A1C with Estimated Average G destiny 01-07-2024 Glucose [Mass/Vol] 105 mg/dL Normal [facility] Comment on above: Result Comment: PERF ORMED BY: [facility] [address] [place] [address] PATHOLOGIST GAS SINGER JOSE GOEL M.D. Performed By: #### JOSSE SMITH T4, [id number], SEROTON, TEST F + T, T3R, THYGLOB AB, ESTRADIOL, TPO, SHBG, ESTRONE, INSULIN, PROG #### [facility] , #### T4F, TRISTEN, TSH3, A1C WTH eA, FILIBERTO, GLU, T3F #### [address] Antithyroglobulin Abon 01-07 Antithyroglobulin Ab <1.0 Normal 0.0-0.9 [facility] Comment on above: Result Comment: Thyr oglobulin Antibody measured by [employer] Performed at: [address] [id number] Photo Tube Assembler: Baudilio Leyva PhD, Phone: [phone] Performed By: #### D VENITA, LC T4, [id number], SEROTON, TEST F + T, T3R, THYGLOB AB, ESTRADIOL, TPO, SHBG, ESTRONE, INSULIN, PROG #### [facility] , #### T4F, TRISTEN, TSH3, A1C WTH eA, FILIBERTO, GLU, T3F #### [address] Cortisolon 01-07-2024 Cortisol 6.8 ug/dL Normal [facility] Comment on above: Result Comment: Refe rence range: AM 6 - 24 ug/dl PM <10 ug/dl [facility] chartered wealth manager and method: HELGA UNICEL DXI, POLYCLONAL ANTIBODY CORTISOL ASSAY. PERFORMED BY: [place] [address] PATHOLOGIST GAS SINGER JOSE GOEL M.D. Performed By: #### Adria NATHAN, LC T4, [id number], SEROTON, TEST F + T, T3R, THYGLOB AB, ESTRADIOL, TPO, SHBG, ESTRONE, INSULIN, PROG #### [facility] , #### T4F, TRISTEN, TSH3, A1C WTH eA, FILIBERTO, GLU, T3F #### [address] Dehydroepiandrosterone Sulfa teOrdered By: Deisy Villar on 01-07-2024 Dehydroepiandrosterone Sulfate 174.0 ug/dL Normal 84.8-378.[address] [facility] Comment on above: Performed By: #### D DANIELLEAS, LC T4, [id number], SEROTON, TEST F + T, T3R, THYGLOB AB, ESTRADIOL, TPO, SHBG, ESTRONE, INSULIN, PROG #### [facility] , #### T4F, TRISTEN, TSH3, A1C WTH eA, FILIBERTO, GLU, T3F #### [facility] [address] [place] [address] [place] Estradiolon 01-07-2024 Estradiol 300.0 pg/mL Normal . [facility] Comment on above: Result Comment: Adul t Female Range Follicular phase 12.5 - 166.0 Ovulation phase 85.8 - 498.0 Luteal phase 43.8 - 211.0 Postmenopausal <6.0 - 54.7 1st trimester 215.0 - >4300.0 [employer] methodology Performed By: #### D VENITA, LC T4, [id number], SEROTON, TEST F + T, T3R, THYGLOB AB, ESTRADIOL, TPO, SHBG, ESTRONE, INSULIN, PROG #### [facility] , #### T4F, TRISTEN, TSH3, A1C WTH eA, FILIBERTO, GLU, T3F #### [facility] [address] [place] [address] [place] Estrone, Serumon 01-07-2024 Estrone, Serum 46 pg/mL Normal 27-231 [facility] Comment on above: Result Comment: Rang e Adult (Premenopausal) 27 - 231 Menstrual Cycle (1-10 days) 19 - 149 Menstrual Cycle (11-20 days) 32 - 176 Menstrual Cycle (21-30 days) 37 - 200 Performed at: [address] [id number] Photo Tube Assembler: Quinton Wolf MD, Phone: [phone] Performed By: #### D HEAS, LC T4, [id number], SEROTON, TEST F + T, T3R, THYGLOB AB, ESTRADIOL, TPO, SHBG, ESTRONE, INSULIN, PROG #### [facility] , #### T4F, TRISTEN, TSH3, A1C WTH eA, FILIBERTO, GLU, T3F #### [facility] [address] [place] [address] [place] Ferritin [Mass/volume] in Se rum or PlasmaOrdered By: Deisy Villar on 01-07-2024 Ferritin [Mass/Vol] 44.8 ng/mL Normal 11.0-306.8 [facility] Comment on above: Performed By: #### D HEAS, LC T4, [id number], SEROTON, TEST F + T, T3R, THYGLOB AB, ESTRADIOL, TPO, SHBG, ESTRONE, INSULIN, PROG #### [facility] , #### T4F, TRISTEN, TSH3, A1C WTH eA, FILIBERTO, GLU, T3F #### [facility] [address] Free testosterone measuremen t by LC-MS/MSOrdered By: Deisy Villar on 01-07-2024 Testosterone Free [Mass/Vol] 0.3 pg/mL 0.0-4.[address] [facility] Comment on above: Performed at: [address] [id number] Director: Baudilio Leyva PhD, Phone: [phone] at: - [facility] [address] [id number] Director: Quinton Wolf MD, Phone: [phone] Glucose [Mass/volume] in Ser um or PlasmaOrdered By: Deisy Villar on 01-07-2024 Glucose [Mass/Vol] 84 mg/dL Normal 70-100 [facility] Comment on above: ADA recommended refe rence rangeRandom Glucose Reference Range is dependent on time and content of last meal. Glucose of more than 200 mg/dL in a nonstressed, ambulatory subject supports the diagnosis of Diabetes Mellitus. Result Comment: [place] om Glucose Reference Range is dependent on time and content of last meal. Glucose of more than 200 mg/dL in a nonstressed, ambulatory subject supports the diagnosis of Diabetes Mellitus. ADA recommended reference range Performed By: #### D HEAS, LC T4, [id number], SEROTON, TEST F + T, T3R, THYGLOB AB, ESTRADIOL, TPO, SHBG, ESTRONE, INSULIN, PROG #### [facility] , #### T4F, TRISTEN, TSH3, A1C WTH eA, FILIBERTO, GLU, T3F #### [facility] [address] Glucose mean value [Mass/vol ume] in Blood Estimated from glycated hemoglobinOrdered By: Deisy Villar on 01-07-2024 Average glucose Estimated from glycated hemoglobin (Bld) [Mass/Vol] 105 mg/dL [facility] Hemoglobin A1c percentageOrd ered By: Deisy Villar on 01-07-2024 HbA1c (Bld) [Mass fraction] 5.3 % Normal 4.3-5.[address] [facility] Comment on above: Increased risk for d iabetes: 5.7 - 6.4diabetes: >6.4glycemic control for adults with diabetes: <7.0 Result Comment: Incr eased risk for diabetes: 5.7 - 6.4 diabetes: >6.4 glycemic control for adults with diabetes: <7.0 Performed By: #### D VENITA, LC T4, [id number], SEROTON, TEST F + T, T3R, THYGLOB AB, ESTRADIOL, TPO, SHBG, ESTRONE, INSULIN, PROG #### [facility] , #### T4F, TRISTEN, TSH3, A1C WTH eA, FILIBERTO, GLU, T3F #### [facility] [address] [place] [address] Insulinon 01-07-2024 Insulin 4.5 u[iU]/mL Normal 2.6-24.9 [facility] Comment on above: Result Comment: Perf ormed at: - [facility] [address] [id number] Photo Tube Assembler: Baudilio Leyva PhD, Phone: [phone] Performed By: #### D HEAS, LC T4, [id number], SEROTON, TEST F + T, T3R, THYGLOB AB, ESTRADIOL, TPO, SHBG, ESTRONE, INSULIN, PROG #### [facility] , #### T4F, TRISTEN, TSH3, A1C WTH eA, FILIBERTO, GLU, T3F #### [facility] [address] Lab Alie Thyroxine (T4)on T4 [Mass/Vol] 8.2 ug/dL Normal 4.5-12.0 [facility] Comment on above: Performed By: #### D HEAS, LC T4, [id number], SEROTON, TEST F + T, T3R, THYGLOB AB, ESTRADIOL, TPO, SHBG, ESTRONE, INSULIN, PROG #### [facility] , #### T4F, TRISTEN, TSH3, A1C WTH eA, FILIBERTO, GLU, T3F #### [facility] [address] No Panel InformationOrdered By: Deisy Villar on 01-07-2024 Free Thyroxine (T4) Direct 8.2 ug/dL 4.5-12.[address] [facility] Reverse Triiodothyronine (T3) 18.9 ng/dL 9.2-24.[address] [facility] Comment on above: This test was develo ped and its performance characteristicsdetermined by [employer]. It has not been cleared orapproved by the Food and Drug Administration.Performed at: [address] [id number] Director: Quinton Wolf MD, Phone: [phone] Sex Hormone Binding Globulin 95.4 nmol/L 24.6-122.[address] [facility] Comment on above: Performed at: [address] [id number] Director: Baudilio Leyva PhD, Phone: [phone] Plasma serotonin measurement (mass/volume)Ordered By: Deisy Villar on 01-07-2024 Serotonin (P) [Mass/Vol] 71 ng/mL 31-[address] [facility] Comment on above: This test was develo ped and its performance characteristicsdetermined by [employer]. It has not been cleared orapproved by the Food and Drug Administration.Performed at: [facility] [place], [place] [id number] Director: Quinton Wolf MD, Phone: [phone] Progesteroneon 01-07-2024 Progesterone 0.2 ng/mL Normal . [facility] Comment on above: Result Comment: Foll icular phase 0.1 - 0.9 Luteal phase 1.8 - 23.9 Ovulation phase 0.1 - 12.0 First trimester 11.0 - 44.3 Second trimester 25.4 - 83.3 Third trimester 58.7 - 214.0 Postmenopausal 0.0 - 0.1 Performed By: #### D JOSSE NATHAN T4, [id number], SEROTON, TEST F + T, T3R, THYGLOB AB, ESTRADIOL, TPO, SHBG, ESTRONE, INSULIN, PROG #### [facility] , #### T4F, TRISTEN, TSH3, A1C WTH eA, FILIBERTO, GLU, T3F #### [facility] [address] Random cortisol measurementO rdered By: Deisy Villar on 01-07-2024 Cortisol [Mass/Vol] 6.8 ug/dL [facility] Comment on above: [facility] chartered wealth manager and method:I-MDEL DXI, POLYCLONAL ANTIBODY CORTISOL ASSAY.Reference range: AM 6 - 24 ug/dl PM <10 ug/dl Serotonin, Serumon 4 Serotonin, Serum 71 ng/mL Normal 31-207 [facility] Comment on above: Result Comment: This test was developed and its performance characteristics determined by [employer]. It has not been cleared or approved by the Food and Drug Administration. Performed at: [facility] [address] [place], [place] [id number] Photo Tube Assembler: Quinton Wolf MD, Phone: [phone] PERFORMED BY: [facility] [address] [place] [address] PATHOLOGIST GAS SINGER JOSE GOEL M.D. Performed By: #### D JOSSE NATHAN T4, [id number], SEROTON, TEST F + T, T3R, THYGLOB AB, ESTRADIOL, TPO, SHBG, ESTRONE, INSULIN, PROG #### [facility] , #### T4F, TRISTEN, TSH3, A1C WTH eA, FILIBERTO, GLU, T3F #### [facility] [address] Serum estrone measurementOrd ered By: Deisy Villar on 01-07-2024 E1 [Mass/Vol] 46 pg/mL 27-[address] [facility] Comment on above: Range Adult (Premeno pausal) 27 - 231 Menstrual Cycle (1-10 days) 19 - 149 Menstrual Cycle (11-20 days) 32 - 176 Menstrual Cycle (21-30 days) 37 - 200Performed at: [employer] [facility] [address] [id number] Director: Quinton Wolf MD, Phone: [phone] Serum or plasma calcitriol m easurement (mass/volume)Ordered By: Deisy Villar on 01-07-2024 1,25-dihydroxyvitamin D3 [Mass/Vol] 56.6 pg/mL 24.8-81.[address] [facility] Comment on above: Performed at: [employer] [address] [id number] Director: Quinton Wolf MD, Phone: [phone] Serum or plasma estradiol (E 2) measurement (mass/volume)Ordered By: Deisy Villar on 01-07-2024 E2 [Mass/Vol] 300.0 pg/mL . [facility] Comment on above: Adult Female Range F ollicular phase 12.5 - 166.0 Ovulation phase 85.8 - 498.0 Luteal phase 43.8 - 211.0 Postmenopausal <6.0 - 54.7 1st trimester 215.0 - >4300.0Roche ECLIA methodology Serum or plasma insulin kevin urement (units/volume)Ordered By: Deisy Villar on 01-07-2024 Insulin Qn 4.5 u[iU]/mL 2.6-24.[address] [facility] Comment on above: Performed at: [employer] [facility] [employer] [address] [id number] Director: Baudilio Leyva PhD, Phone: [phone] Serum or plasma progesterone measurement (mass/volume)Ordered By: Deisy Villar on 01-07-2024 Progesterone [Mass/Vol] 0.2 ng/mL . [facility] Comment on above: Follicular phase 0.1 - 0.9 Luteal phase 1.8 - 23.9 Ovulation phase 0.1 - 12.0 First trimester 11.0 - 44.3 Second trimester 25.4 - 83.3 Third trimester 58.7 - 214.0 Postmenopausal 0.0 - 0.1 Serum or plasma thyroglobuli n antibody assay (units/volume)Ordered By: Deisy Villar on 01-07-2024 Thyroglobulin Ab Qn [IU]/mL 0.0-0.9 [facility] Comment on above: Thyroglobulin Antibo dy measured by [employer] ResourcesMethodologyPerformed at: [employer] [address] [id number] Director: Baudilio Leyva PhD, Phone: [phone] Serum or plasma thyroperoxid ase antibody assay (units/volume)Ordered By: Deisy Villar on 01-07-2024 TPO Ab Qn [IU]/mL 0-[address] [facility] Comment on above: Performed at: [employer] [address] [id number] Director: Baudilio Leyva PhD, Phone: [phone] Sex Hormone Binding Globulin on 01-07-2024 Sex Hormone Binding Globulin 95.4 Normal 24.6-122.0 [facility] Comment on above: Result Comment: Perf ormed at: [employer] [address] [id number] Photo Tube Assembler: Baudilio Leyva PhD, Phone: [phone] Performed By: #### D HEAS, LC T4, [id number], SEROTON, TEST F + T, T3R, THYGLOB AB, ESTRADIOL, TPO, SHBG, ESTRONE, INSULIN, PROG #### [facility] , #### T4F, TRISTEN, TSH3, A1C WTH eA, FILIBERTO, GLU, T3F #### [place] [address] [place] Testosterone Free and TotalO rdered By: Deisy Villar on 01-07-2024 Testosterone [Mass/Vol] 16 ng/dL Normal 8-60 [facility] Comment on above: Performed By: #### D HEAS, LC T4, [id number], SEROTON, TEST F + T, T3R, THYGLOB AB, ESTRADIOL, TPO, SHBG, ESTRONE, INSULIN, PROG #### [facility] , #### T4F, TRISTEN, TSH3, A1C WTH eA, FILIBERTO, GLU, T3F #### [facility] [address] [place] [address] [place] Testosterone Free and Totalo n 01-07-2024 Testosterone,Free 0.3 pg/mL Normal 0.0-4.2 [facility] Comment on above: Result Comment: Perf ormed at: [facility] [id number] Photo Tube Assembler: Baudilio Leyva PhD, Phone: [phone] Performed at: [facility] [employer] [id number] Photo Tube Assembler: Quinton Wolf MD, Phone: [phone] Performed By: #### D VENITA, LC T4, [id number], SEROTON, TEST F + T, T3R, THYGLOB AB, ESTRADIOL, TPO, SHBG, ESTRONE, INSULIN, PROG #### [facility] , #### T4F, TRISTEN, TSH3, A1C WTH eA, FILIBERTO, GLU, T3F #### [facility] [address] Thyroid Peroxidase Antibodie son 01-07-2024 Thyroid Peroxidase Antibodies <9 Normal 0-34 [facility] Comment on above: Result Comment: Perf ormed at: [facility] [id number] Photo Tube Assembler: Baudilio Leyva PhD, Phone: [phone] Performed By: #### D HEAS, LC T4, [id number], SEROTON, TEST F + T, T3R, THYGLOB AB, ESTRADIOL, TPO, SHBG, ESTRONE, INSULIN, PROG #### [facility] , #### T4F, TRISTEN, TSH3, A1C WTH eA, FILIBERTO, GLU, T3F #### [facility] [address] [place] [address] Thyrotropin [Units/volume] i n Serum or PlasmaOrdered By: Deisy Villar on 01-07-2024 TSH Qn 1.80 m[IU]/L Normal 0.45-5.[address] [facility] Comment on above: Performed By: #### D HESUE, LC T4, [id number], SEROTON, TEST F + T, T3R, THYGLOB AB, ESTRADIOL, TPO, SHBG, ESTRONE, INSULIN, PROG #### [facility] , #### T4F, TRISTEN, TSH3, A1C WTH eA, FILIBERTO, GLU, T3F #### [address] Thyroxine (T4) free [Mass/vo lume] in Serum or PlasmaOrdered By: Deisy Villar on 01-07-2024 Free T4 [Mass/Vol] 0.88 ng/dL Normal 0.61-1.12 [facility] Comment on above: Performed By: #### D VENITA, LC T4, [id number], SEROTON, TEST F + T, T3R, THYGLOB AB, ESTRADIOL, TPO, SHBG, ESTRONE, INSULIN, PROG #### [facility] , #### T4F, TRISTEN, TSH3, A1C WTH eA, FILIBERTO, GLU, T3F #### [facility] [address] [place] [address] Triiodothyronine (T3) Freeon 01-07-2024 Triiodothyronine (T3) Free 3.90 pg/mL Normal 2.50-3.90 [facility] Comment on above: Result Comment: PERF ORMED BY: [place] [address] PATHOLOGIST GAS SINGER JOSE GOEL M.D. Performed By: #### D HESUE, LC T4, [id number], SEROTON, TEST F + T, T3R, THYGLOB AB, ESTRADIOL, TPO, SHBG, ESTRONE, INSULIN, PROG #### [facility] , #### T4F, TRISTEN, TSH3, A1C WTH eA, FILIBERTO, GLU, T3F #### [facility] [address] Triiodothyronine (T3) Free [ Mass/volume] in Serum or PlasmaOrdered By: Deisy Villar on 01-07-2024 Free T3 [Mass/Vol] 3.90 pg/mL 2.50-3.90 [facility] Triiodothyronine (T3) Revers lonnie 01-07-2024 Triiodothyronine (T3) Reverse 18.9 ng/dL Normal 9.2-24.1 [facility] Comment on above: Result Comment: This test was developed and its performance characteristics determined by [facility]. It has not been cleared or approved by the Food and Drug Administration. Performed at: [address] [id number] Photo Tube Assembler: Quinton Wolf MD, Phone: [phone] Performed By: #### D VENITA, T4, [id number], SEROTON, TEST F + T, T3R, THYGLOB AB, ESTRADIOL, TPO, SHBG, ESTRONE, INSULIN, PROG #### [facility] , #### T4F, TRISTEN, TSH3, A1C WTH eA, FILIBERTO, GLU, T3F #### [address] Alanine aminotransferase [En zymatic activity/volume] in Serum or PlasmaOrdered By: Delano Francis on 09-17-2023 ALT [Catalytic activity/Vol] 20 U/L [facility] Albumin [Mass/volume] in Ser um or Plasma by Bromocresol green (BCG) dye binding methoOrdered By: Delano Francis on 09-17-2023 Albumin BCG dye [Mass/Vol] 4.3 g/dL 3.5-5.[address] [facility] Alkaline phosphatase [Enzyma tic activity/volume] in Serum or PlasmaOrdered By: Delano Francis on 09-17-2023 ALP [Catalytic activity/Vol] 62 U/L 34-[address] [facility] Aspartate aminotransferase [ Enzymatic activity/volume] in Serum or PlasmaOrdered By: Delano Francis on 09-17-2023 AST [Catalytic activity/Vol] 22 U/L 13-[address] [facility] Basophils Auto (Bld) [#/Vol] Ordered By: Delano Francis on 09-17-2023 Basophils (Bld) [#/Vol] 0.0 10*3/uL 0.0-0.[address] [facility] Basophils/100 WBC Auto (Bld) Ordered By: Delano Francis on 09-17-2023 Basophils/100 WBC (Bld) 0.4 % . [facility] Bilirubin.total [Mass/volume ] in Serum or PlasmaOrdered By: Delano Francis on 09-17-2023 Bilirubin [Mass/Vol] 0.7 mg/dL 0.3-1.0 [facility] Calcium [Mass/volume] in Ser um or PlasmaOrdered By: Delano Francis on 09-17-2023 Calcium [Mass/Vol] 9.4 mg/dL 8.6-10.3 [facility] Carbon dioxide, total [Moles /volume] in Serum or PlasmaOrdered By: Delano Francis on 09-17-2023 CO2 [Moles/Vol] 26.2 mmol/L 21.0-31.0 [facility] Chloride [Moles/volume] in S stevo or PlasmaOrdered By: Delano Francis on 09-17-2023 Chloride [Moles/Vol] 102 mmol/L 98-107 [facility] Cholesterol [Mass/volume] in Serum or PlasmaOrdered By: Delano Francis on 09-17-2023 Cholesterol [Mass/Vol] 214 mg/dL 140-200 [facility] Comment on above: Chol less than 200 m g/dl low riskChol 201-239 mg/dl borderline riskChol 240 mg/dl and greater high risk Cholesterol in LDL Calc [Mas s/Vol]Ordered By: Delano Francis on 09-17-2023 Cholesterol in LDL [Mass/Vol] 161 mg/dL 0-[address] [facility] Comment on above: LDL ATP III CLASSIFI CATIONLDL less than 100 mg/dL OptimalLDL 100-129 mg/dL Near or above optimalLDL 130-159 mg/dL Borderline highLDL 160-189 mg/dL HighLDL greater than 189 mg/dL Very high Cholesterol in VLDL Calc [Ma ss/Vol]Ordered By: Delano Francis on 09-17-2023 Cholesterol in VLDL [Mass/Vol] 9 mg/dL [facility] Creatinine [Mass/volume] in Serum or PlasmaOrdered By: Delano Francis on 09-17-2023 Creatinine [Mass/Vol] 0.79 mg/dL 0.60-1.20 [facility] Eosinophils Auto (Bld) [#/Vo l]Ordered By: Delano Francis on 09-17-2023 Eosinophils (Bld) [#/Vol] 0.1 10*3/uL 0.0-0.[address] [facility] Eosinophils/100 WBC Auto (Bl d)Ordered By: Delano Francis on 09-17-2023 Eosinophils/100 WBC (Bld) 0.9 % . [facility] Erythrocyte distribution wid th Auto (RBC) [Ratio]Ordered By: Delano Francis on 09-17-2023 Erythrocyte distribution width (RBC) [Ratio] 12.4 % 11.9-15.[address] [facility] Globulin Calc (S) [Mass/Vol] Ordered By: Delano Francis on 09-17-2023 Globulin (S) [Mass/Vol] 2.5 g/dL [facility] Glucose [Mass/volume] in Ser um or PlasmaOrdered By: Delano Francis on 09-17-2023 Glucose [Mass/Vol] 75 mg/dL 70-100 [facility] Hematocrit Auto (Bld) [Volum e fraction]Ordered By: Delano Francis on 09-17-2023 Hematocrit (Bld) [Volume fraction] 34.2 % 34.0-46.[address] [facility] Hemoglobin [Mass/volume] in BloodOrdered By: Delano Francis on 09-17-2023 Hemoglobin (Bld) [Mass/Vol] 11.8 g/dL 11.8-15.[address] [facility] Leukocytes [#/volume] correc calvin for nucleated erythrocytes in Blood by Automated counOrdered By: Delano Francis on 09-17-2023 WBC corrected for nucl RBC Auto (Bld) [#/Vol] 5.9 10*3/uL 3.8-11.[address] [facility] Lymphocytes Auto (Bld) [#/Vo l]Ordered By: Delano Francis on 09-17-2023 Lymphocytes (Bld) [#/Vol] 1.8 10*3/uL 1.00-4.[address] [facility] Lymphocytes/100 WBC Auto (Bl d)Ordered By: Delano Francis on 09-17-2023 Lymphocytes/100 WBC (Bld) 30.5 % . [facility] MCH Auto (RBC) [Entitic mass ]Ordered By: Delano Francis on 09-17-2023 MCH (RBC) [Entitic mass] 31.8 pg 24.7-34.[address] [facility] MCHC Auto (RBC) [Mass/Vol]Or dered By: Delano Francis on 09-17-2023 MCHC (RBC) [Mass/Vol] 34.4 g/dL 32.0-35.0 [facility] MCV Auto (RBC) [Entitic vol] Ordered By: Delano Francis on 09-17-2023 MCV (RBC) [Entitic vol] 92.5 fL 80-100 [facility] Monocytes Auto (Bld) [#/Vol] Ordered By: Delano Francis on 09-17-2023 Monocytes (Bld) [#/Vol] 0.5 10*3/uL 0.0-0.[address] [facility] Monocytes/100 WBC Auto (Bld) Ordered By: Delano Francis on 09-17-2023 Monocytes/100 WBC (Bld) 9.2 % . [facility] Neutrophils Auto (Bld) [#/Vo l]Ordered By: Delano Francis on 09-17-2023 Neutrophils (Bld) [#/Vol] 3.5 10*3/uL 1.8-7.[address] [facility] Neutrophils/100 WBC Auto (Bl d)Ordered By: Delano Francis on 09-17-2023 Neutrophils/100 WBC (Bld) 59.0 % . [facility] No Panel InformationOrdered By: Delano Francis on 09-17-2023 Estimated GFR (CKD-EPI) > 60.0 mL/Min [facility] Creatinine Clearance (Chem N/A [facility] Nucleated erythrocytes [Pres ence] in Blood by Automated countOrdered By: Delano Francis on 09-17-2023 Nucleated RBC Auto Ql (Bld) 0.2 /100{WBC} 0-0.[address] [facility] Platelet mean volume Auto (B ld) [Entitic vol]Ordered By: Delano Francis on 09-17-2023 Platelet mean volume (Bld) [Entitic vol] 8.1 fL 6.3-10.[address] [facility] Platelets Auto (Bld) [#/Vol] Ordered By: Delano Francis on 09-17-2023 Platelets (Bld) [#/Vol] 250 10*3/uL 150-[address] [facility] Potassium [Moles/volume] in Serum or PlasmaOrdered By: Delano Fracnis on 09-17-2023 Potassium [Moles/Vol] 4.0 mmol/L 3.5-5.1 [facility] Protein [Mass/volume] in Ser um or PlasmaOrdered By: Delano Francis on 09-17-2023 Protein [Mass/Vol] 6.8 g/dL 6.4-8.9 [facility] RBC Auto (Bld) [#/Vol]Ordere d By: Delano Francis on 09-17-2023 RBC (Bld) [#/Vol] 3.70 10*6/uL 3.60-5.00 [facility] Serum or plasma albumin/glob ulin mass ratioOrdered By: Delano Francis on 09-17-2023 Albumin/Globulin [Mass ratio] 1.7 {ratio} [facility] Serum or plasma anion gap de terminationOrdered By: Delano Francis on 09-17-2023 Anion gap [Moles/Vol] 10.8 mmol/L 6.0-15.0 [facility] Serum or plasma high density lipoprotein (HDL) cholesterol measurementOrdered By: Delano Francis on 09-17-2023 Cholesterol in HDL [Mass/Vol] 43 mg/dL 23-[address] [facility] Comment on above: HDL CHOL ATP-III CLA SSIFICATION Cardiovascular RiskHDL > or equal to 60 mg/dL LOWHDL < 40 mg/dL HIGH Serum or plasma total choles terol/high density lipoprotein (HDL) cholesterol mass ratOrdered By: Delano Francis on 09-17-2023 Cholesterol.total/Alivia sterol in HDL [Mass ratio] 5.0 {ratio} <5.[address] [facility] Sodium [Moles/volume] in Ser um or PlasmaOrdered By: Delano Francis on 09-17-2023 Sodium [Moles/Vol] 135 mmol/L 136-145 [facility] Thyrotropin [Units/volume] i n Serum or PlasmaOrdered By: Delano Francis on 09-17-2023 TSH Qn 1.04 m[IU]/L 0.45-5.[address] [facility] Triglyceride [Mass/volume] i n Serum or PlasmaOrdered By: Delano Francis on 09-17-2023 Triglyceride [Mass/Vol] 48 mg/dL 0-149 [facility] Comment on above: TRIG ATP III CLASSIF ICATIONTRIG less than 150 mg/dL NormalTRIG 150-199 mg/dL Borderline highTRIG 200-500 mg/dL High TRIG greater than 500 mg/dL Very highStandard traceable to the Center for Disease Conrtrol and Prevention (CDC) test method. Urea nitrogen [Mass/volume] in Serum or PlasmaOrdered By: Delano Francis on 09-17-2023 Urea nitrogen [Mass/Vol] 7 mg/dL 7-[address] [facility] WBC Auto (Bld) [#/Vol]Ordere d By: Delano Francis on 09-17-2023 WBC (Bld) [#/Vol] 5.9 10*3/uL 3.8-11.6 [facility] Mononucleosis Test, [place] 1 Heterophile Ab LA Ql (S) Negative [facility] Other [facility] Strep[facility] 09-26-2022 S. pyogenes Org specific cx Ql (Throat) Negative [employer] Other Quick Strep [facility] Other SARS-CoV-2 (COVID-19) RNA NA A+probe Ql (Resp)on 09-26-2022 SARS-CoV-2 (COVID-19) RNA ROB+probe Ql (Unsp spec) Negative [facility] Other PAP ACOG PANEL 2: 30 to 65on 09-01-2022 . . Normal [facility] Comment on above: Result Comment: Perf ormed at: WB Performed By: #### [id number] #### [facility] [address] [address] [address] Zonia Zhang Age Gdln ACOG Testing - [facility] Comment on above: Performed By: #### [id number] #### [facility] [address] [place] [address] Dr. Zonia Zhang DIAGNOSIS: Comment Normal [facility] Comment on above: Result Comment: NEGA TIVE FOR INTRAEPITHELIAL LESION OR MALIGNANCY. Performed at: WB Performed By: #### [id number] #### [facility] [address] [address] [address] Zonia Zhang HPV Aptima Negative Normal [facility] Comment on above: Result Comment: This nucleic acid amplification test detects fourteen high-risk HPV types (16,18,31,33,35,39,45,51,52,56,58,59,66,68) without differentiation. Performed at: =G Performed By: #### [id number] #### [facility] [address] [address] [address] Zonia Zhang Methodology: Comment [facility] Comment on above: Result Comment: This liquid based ThinPrep(R) pap test was screened with the use of an image guided system. Performed at: WB Performed By: #### [id number] #### [facility] [address] [place] [address] Dr. Zonia Zhang Note: Comment Normal [facility] Comment on above: Result Comment: The Pap smear is a screening test designed to aid in the detection of premalignant and malignant conditions of the uterine cervix. It is not a diagnostic procedure and should not be used as the sole means of detecting cervical cancer. Both false-positive and false-negative reports do occur. . Performed at: WB Performed By: #### [id number] #### [facility] [address] [place] [address] Dr. Zonia Zhang Performed by: Comment Normal [facility] Comment on above: Result Comment: Negin Tomas, Microphone Boom Operator (ASCP) Performed at: WB Performed By: #### [id number] #### [facility] [address] [place] [address] Dr. Zonia Zhang Specimen adequacy: Comment Normal [facility] Comment on above: Result Comment: Sati sfactory for evaluation. Endocervical and/or squamous metaplastic cells (endocervical component) are present. Performed at: WB Performed By: #### [id number] #### [facility] [address] [place] [address] Dr. Zonia Zhang Basophils Auto (Bld) [#/Vol] Ordered By: Delano Francis on 08-07-2022 Basophils (Bld) [#/Vol] 0.0 10*3/uL 0.0-0.[address] [facility] Basophils/100 WBC Auto (Bld) Ordered By: Delano Francis on 08-07-2022 Basophils/100 WBC (Bld) 0.5 % . [facility] Blood hemoglobin measurement (mass/volume)Ordered By: Delano Francis on 08-07-2022 Hemoglobin (Bld) [Mass/Vol] 12.7 g/dL 11.8-15.[address] [facility] Blood leukocytes automated c ount (number/volume)Ordered By: Delano Francis on 08-07-2022 WBC (Bld) [#/Vol] 5.0 10*3/uL 4.5-11.0 [facility] Body fluid albumin measureme nt (mass/volume)Ordered By: Delano Francis on 08-07-2022 Albumin (Body fld) [Mass/Vol] 4.1 g/dL 3.2-5.[address] [facility] Cholesterol [Mass/volume] in Serum or PlasmaOrdered By: Delano Francis on 08-07-2022 Cholesterol [Mass/Vol] 253 mg/dL 140-200 [facility] Comment on above: Chol less than 200 m g/dl low risk Chol 201-239 mg/dl borderline risk Chol 240 mg/dl and greater high risk Chol less than 200 m g/dl low riskChol 201-239 mg/dl borderline riskChol 240 mg/dl and greater high risk Cholesterol in LDL Calc [Mas s/Vol]Ordered By: Delano Francis on 08-07-2022 Cholesterol in LDL [Mass/Vol] 181 mg/dL 0-[address] [facility] Comment on above: LDL ATP III [...] in VLDL [Mass/Vol] 12 mg/dL [facility] Creatinine and Glomerular fi ltration rate.predicted panel (S/P/Bld)Ordered By: Delano Francis on 08-07-2022 Creatinine [Mass/Vol] 0.76 mg/dL 0.44-1.03 [facility] Eosinophils Auto (Bld) [#/Vo l]Ordered By: Delano Francis on 08-07-2022 Eosinophils (Bld) [#/Vol] 0.1 10*3/uL 0.0-0.[address] [facility] Eosinophils/100 WBC Auto (Bl d)Ordered By: Delano Francis on 08-07-2022 Eosinophils/100 WBC (Bld) 1.6 % . [facility] Erythrocyte distribution wid th Auto (RBC) [Ratio]Ordered By: Delano Francis on 08-07-2022 Erythrocyte distribution width (RBC) [Ratio] 12.6 % 11.9-15.[address] [facility] Estimated glomerular filtrat ion rate (GFR) non- AmericanOrdered By: Delano Francis on 08-07-2022 GFR/1.73 sq M.predicted among non-blacks MDRD (S/P/Bld) [Vol rate/Area] > 60 mL/Min [facility] Globulin Calc (S) [Mass/Vol] Ordered By: Delano Francis on 08-07-2022 Globulin (S) [Mass/Vol] 2.3 g/dL [facility] Hematocrit Auto (Bld) [Volum e fraction]Ordered By: Delano Francis on 08-07-2022 Hematocrit (Bld) [Volume fraction] 37.5 % 34.0-46.[address] [facility] - Chemistry and C hemistry - challengeOrdered By: Delano Francis on 08-07-2022 Glucose [Mass/Vol] 88 mg/dL 70-100 [facility] - Hematology and Cell countsOrdered By: Delano Francis on 08-07-2022 Nucleated RBC/100 WBC (Bld) [Ratio] 0.1 % 0-0.[address] [facility] Lymphocytes Auto (Bld) [#/Vo l]Ordered By: Delano Francis on 08-07-2022 Lymphocytes (Bld) [#/Vol] 1.4 10*3/uL 1.00-4.[address] [facility] Lymphocytes/100 WBC Auto (Bl d)Ordered By: Delano Francis on 08-07-2022 Lymphocytes/100 WBC (Bld) 28.1 % . [facility] MCH Auto (RBC) [Entitic mass ]Ordered By: Delano Francis on 08-07-2022 MCH (RBC) [Entitic mass] 31.8 pg 24.7-34.[address] [facility] MCHC Auto (RBC) [Mass/Vol]Or dered By: Delano Francis on 08-07-2022 MCHC (RBC) [Mass/Vol] 33.8 g/dL 32.0-35.0 [facility] MCV Auto (RBC) [Entitic vol] Ordered By: Delano Francis on 08-07-2022 MCV (RBC) [Entitic vol] 94.3 fL 80-100 [facility] Monocyte %Ordered By: Delano Francis on 08-07-2022 Monocyte % 60 mg/dL 35-[address] [facility] Comment on above: TRIG ATP III [...] (Bld) [#/Vol] 0.5 10*3/uL 0.0-0.[address] [facility] Monocytes/100 WBC Auto (Bld) Ordered By: Delano Francis on 08-07-2022 Monocytes/100 WBC (Bld) 10.1 % . [facility] Neutrophils Auto (Bld) [#/Vo l]Ordered By: Delano Francis on 08-07-2022 Neutrophils (Bld) [#/Vol] 3.0 10*3/uL 1.8-7.[address] [facility] Neutrophils/100 WBC Auto (Bl d)Ordered By: Delano Francis on 08-07-2022 Neutrophils/100 WBC (Bld) 59.7 % . [facility] No Panel InformationOrdered By: Delano Francis on 08-07-2022 Estimated GFR () > 60 mL/Min [facility] Comment on above: GFR estimated refere nce range: According to KDOQI guidelines, <60 ml/min/1.73m2 is sufficient to diagnose a patient with chronic kidney disease. Nicotine Metabolite Negative Cutoff=25 [facility] Comment on above: Performed at: [facility] [address] [id number] Director: Quinton Wolf MD, Phone: [phone] Pharmacy Creatinine Clearance (Chem N/A [facility] Platelet mean volume Auto (B ld) [Entitic vol]Ordered By: Delano Francis on 08-07-2022 Platelet mean volume (Bld) [Entitic vol] 7.8 fL 6.3-10.[address] [facility] Platelets Auto (Bld) [#/Vol] Ordered By: Delano Francis on 08-07-2022 Platelets (Bld) [#/Vol] 275 10*3/uL 150-[address] [facility] Protein [Mass/volume] in Ser um or PlasmaOrdered By: Delano Francis on 08-07-2022 Protein [Mass/Vol] 6.4 g/dL 6.1-7.9 [facility] RBC Auto (Bld) [#/Vol]Ordere d By: Delano Francis on 08-07-2022 RBC (Bld) [#/Vol] 3.97 10*6/uL 3.60-5.00 [facility] Serum or plasma alanine troy otransferase measurement without P-5'-P (enzymatic activiOrdered By: Delano Francis on 08-07-2022 ALT No additional P-5'-P [Catalytic activity/Vol] 13 U/L 10-[address] [facility] Serum or plasma albumin/glob ulin mass ratioOrdered By: Delano Francis on 08-07-2022 Albumin/Globulin [Mass ratio] 1.8 {ratio} [facility] Serum or plasma alkaline nova sphatase measurement (enzymatic activity/volume)Ordered By: Delano Francis on 08-07-2022 ALP [Catalytic activity/Vol] 52 U/L 32-[address] [facility] Serum or plasma anion gap de terminationOrdered By: Delano Francis on 08-07-2022 Anion gap [Moles/Vol] 11.7 mmol/L 6.0-15.0 [facility] Serum or plasma aspartate am inotransferase measurement (enzymatic activity/volume)Ordered By: Delano Francis on 08-07-2022 AST [Catalytic activity/Vol] 15 U/L 10-[address] [facility] Serum or plasma calcium kevin urement (mass/volume)Ordered By: Delano Francis on 08-07-2022 Calcium [Mass/Vol] 9.8 mg/dL 8.2-10.2 [facility] Serum or plasma chloride ra surement (moles/volume)Ordered By: Delano Francis on 08-07-2022 Chloride [Moles/Vol] 101 mmol/L 95-114 [facility] Serum or plasma high density lipoprotein (HDL) cholesterol measurementOrdered By: Delano Francis on 08-07-2022 Cholesterol in HDL [Mass/Vol] 60 mg/dL 35-[address] [facility] Comment on above: HDL CHOL ATP-III CLA SSIFICATION Cardiovascular Risk HDL > or equal to 60 mg/dL LOW HDL < 40 mg/dL HIGH HDL CHOL ATP-III CLA SSIFICATION Cardiovascular RiskHDL > or equal to 60 mg/dL LOWHDL < 40 mg/dL HIGH Serum or plasma potassium me asurement (moles/volume)Ordered By: Delano Francis on 08-07-2022 Potassium [Moles/Vol] 4.4 mmol/L 3.5-5.1 [facility] Serum or plasma sodium measu rement (moles/volume)Ordered By: Delano Francis on 08-07-2022 Sodium [Moles/Vol] 136 mmol/L 136-146 [facility] Serum or plasma total biliru bin measurement (mass/volume)Ordered By: Delano Francis on 08-07-2022 Bilirubin [Mass/Vol] 1.0 mg/dL 0.3-1.2 [facility] Serum or plasma total carbon dioxide measurement (moles/volume)Ordered By: Delano Francis on 08-07-2022 CO2 [Moles/Vol] 27.7 mmol/L 22.0-30.0 [facility] Serum or plasma total choles terol/high density lipoprotein (HDL) cholesterol mass ratOrdered By: Delano Francis on 08-07-2022 Cholesterol.total/Alivia sterol in HDL [Mass ratio] 4.2 {ratio} <5.[address] [facility] Serum or plasma urea nitroge n measurement (mass/volume)Ordered By: Delano Francis on 08-07-2022 Urea nitrogen [Mass/Vol] 9 mg/dL 9- [facility] TSH DL <= 0.005 mIU/L QnOrde red By: Delano Francis on 08-07-2022 TSH Qn 1.43 m[IU]/L 0.45-5.[address] [facility] T3, TOTAL (TRIIODOTHYRONINE) on 06-07-2022 T3, TOTAL 88 ng/dL Normal 71-180 [facility] Comment on above: Performed By: #### T 3TOTAL #### [facility] [address] [address] [address] Zonia Zhang FREE T4on 06-06-2022 Free T4 [Mass/Vol] 0.94 ng/dL Normal 0.76-1.46 [facility] Comment on above: Performed By: #### F T4 #### [facility] [address] [address] [address] Zonia Zhang TSHon 06-06-2022 TSH 1.364 uIU/mL Normal 0.358-3.74 0 [facility] Comment on above: Performed By: #### T SH #### [facility] [address] [address] [address] Zonia Zhang COVID Quick Testingon 2021 Result Positive [facility] Other Quick Flu[facility] 12-27-2021 FLUAV Ab CF (S) [Titer] Negative [employer] Other FLUBV Ab CF (S) [Titer] Negative [employer] Other Vital Signs Date Time Vital Sign Value Performing Clinician Facility 08-07-2025 15:33-0400 Body mass index (BMI) [Ratio] 36.34 kg/m2 [facility] Work Phone: [facility] 08-07-2025 15:33-0400 Body weight 105.23 kg [employer] Work Phone: [facility] 08-07-2025 15:33-0400 Diastolic blood pressure 80 mm[Hg] [facility] Work Phone: [facility] 08-07-2025 15:33-0400 Systolic blood pressure 130 mm[Hg] [employer] Work Phone: [facility] 08-03-2025 09:28-0400 Body mass index (BMI) [Ratio] 36.46 kg/m2 Ángel Sita DO Work Phone: [facility] 08-03-2025 09:28-0400 Body weight 105.6 kg Ángel Sita DO Work Phone: [facility] 08-03-2025 09:28-0400 Diastolic blood pressure 76 mm[Hg] Ángel Sita DO Work Phone: [facility] 08-03-2025 09:28-0400 Systolic blood pressure 120 mm[Hg] Ángel Sita DO Work Phone: [facility] 07-24-2025 11:34-0400 Body mass index (BMI) [Ratio] 36.57 kg/m2 Ángel Sita DO Work Phone: [facility] 07-24-2025 11:34-0400 Body weight 105.92 kg Ángel Sita DO Work Phone: [facility] 07-24-2025 11:34-0400 Diastolic blood pressure 74 mm[Hg] Ángel Sita DO Work Phone: [facility] 07-24-2025 11:34-0400 Systolic blood pressure 118 mm[Hg] Ángel Sita DO Work Phone: [facility] 07-17-2025 14:59-0400 Body mass index (BMI) [Ratio] 36.77 kg/m2 Ángel Sita DO Work Phone: [facility] 07-17-2025 14:59-0400 Body weight 106.5 kg Ángel Sita DO Work Phone: [facility] 07-17-2025 14:59-0400 Diastolic blood pressure 70 mm[Hg] Ángel Sita DO Work Phone: [facility] 07-17-2025 14:59-0400 Systolic blood pressure 118 mm[Hg] Ángel Sita DO Work Phone: [facility] 07-10-2025 13:59-0400 Body mass index (BMI) [Ratio] 36.41 kg/m2 Ángel Sita DO Work Phone: [facility] 07-10-2025 13:59-0400 Body weight 105.46 kg Ángel Sita DO Work Phone: [facility] 07-10-2025 13:59-0400 Diastolic blood pressure 74 mm[Hg] Ángel Sita DO Work Phone: [facility] 07-10-2025 13:59-0400 Systolic blood pressure 126 mm[Hg] Ángel Sita DO Work Phone: [facility] 06-26-2025 13:08-0400 Body mass index (BMI) [Ratio] 36.2 kg/m2 Ángel Sita DO Work Phone: [facility] 06-26-2025 13:08-0400 Body weight 104.83 kg Ángel Sita DO Work Phone: [facility] 06-26-2025 13:08-0400 Diastolic blood pressure 74 mm[Hg] Ángel Sita DO Work Phone: [facility] 06-26-2025 13:08-0400 Systolic blood pressure 116 mm[Hg] Ángel Sita DO Work Phone: [facility] 06-12-2025 14:21-0400 Body mass index (BMI) [Ratio] 35.73 kg/m2 Ángel Sita DO Work Phone: [facility] 06-12-2025 14:21-0400 Body weight 103.47 kg Ángel Sita DO Work Phone: [facility] 06-12-2025 14:21-0400 Diastolic blood pressure 70 mm[Hg] Ángel Sita DO Work Phone: [facility] 06-12-2025 14:21-0400 Systolic blood pressure 120 mm[Hg] Ángel Sita DO Work Phone: [facility] 05-30-2025 09:10-0400 Body mass index (BMI) [Ratio] 35.52 kg/m2 Ángel Sita DO Work Phone: [facility] 05-30-2025 09:10-0400 Body weight 102.88 kg Ángel Sita DO Work Phone: [facility] 05-30-2025 09:10-0400 Diastolic blood pressure 78 mm[Hg] Ángel Sita DO Work Phone: [facility] 05-30-2025 09:10-0400 Systolic blood pressure 120 mm[Hg] Ángel Sita DO Work Phone: [facility] 05-01-2025 08:36-0400 Body mass index (BMI) [Ratio] 34.43 kg/m2 Deisy MUNOZ Work Phone: [facility] 05-01-2025 08:36-0400 Body weight 99.7 kg Deisy MUNOZ Work Phone: [facility] 05-01-2025 08:36-0400 Diastolic blood pressure 74 mm[Hg] Deisy Villar PA Work Phone: [facility] 05-01-2025 08:36-0400 Systolic blood pressure 118 mm[Hg] Deisy Villar PA Work Phone: [facility] 03-30-2025 10:28-0400 Body mass index (BMI) [Ratio] 32.89 kg/m2 Ángel Sita DO Work Phone: [facility] 03-30-2025 10:28-0400 Body weight 95.25 kg Ángel Sita DO Work Phone: [facility] 03-30-2025 10:28-0400 Diastolic blood pressure 84 mm[Hg] Ángel Sita DO Work Phone: [facility] 03-30-2025 10:28-0400 Systolic blood pressure 120 mm[Hg] Ángel Sita DO Work Phone: [facility] 03-02-2025 09:58-0400 Body mass index (BMI) [Ratio] 31.76 kg/m2 Deisy Adithya PA Work Phone: [facility] 03-02-2025 09:58-0400 Body weight 91.99 kg Deisy Villar PA Work Phone: [facility] 03-02-2025 09:58-0400 Diastolic blood pressure 72 mm[Hg] Deisy Villar PA Work Phone: [facility] 03-02-2025 09:58-0400 Systolic blood pressure 120 mm[Hg] Deisy Villar PA Work Phone: [facility] 02-02-2025 09:25-0500 Body mass index (BMI) [Ratio] 30.54 kg/m2 Ángel Sita DO Work Phone: [facility] 02-02-2025 09:25-0500 Body weight 88.45 kg Ángel Sita DO Work Phone: [facility] 02-02-2025 09:25-0500 Diastolic blood pressure 70 mm[Hg] Ángel Sita DO Work Phone: [facility] 02-02-2025 09:25-0500 Systolic blood pressure 120 mm[Hg] Ángel Sita DO Work Phone: [facility] 10-18-2024 11:19-0500 Body height 170.18 cm Robles Ball DO Work Phone: [facility] 10-18-2024 11:19-0500 Body mass index (BMI) [Ratio] 29.7 kg/m2 Robles Ball DO Work Phone: [facility] 10-18-2024 11:19-0500 Body weight 86.23 kg Robles Ball DO Work Phone: [facility] 10-18-2024 11:19-0500 Diastolic blood pressure 77 mm[Hg] Robles Ball DO Work Phone: [facility] 10-18-2024 11:19-0500 Heart rate 88 /min Robles Ball DO Work Phone: [facility] 10-18-2024 11:19-0500 Respiratory rate 12 /min Robles Ball DO Work Phone: [facility] 10-18-2024 11:19-0500 Systolic blood pressure 111 mm[Hg] Robles Ball DO Work Phone: [facility] 09-13-2024 14:28-0400 Body mass index (BMI) [Ratio] 28.79 kg/m2 Ángel Sita DO Work Phone: [facility] 09-13-2024 14:28-0400 Body weight 83.37 kg Ángel Sita DO Work Phone: [facility] 09-13-2024 14:28-0400 Diastolic blood pressure 70 mm[Hg] Ángel Sita DO Work Phone: [facility] 09-13-2024 14:28-0400 Systolic blood pressure 120 mm[Hg] Ángel Sita DO Work Phone: [facility] 05-03-2024 14:40-0400 Body height 170.18 cm [facility] 05-03-2024 14:40-0400 Body mass index (BMI) [Ratio] 28.3 kg/m2 [facility] 05-03-2024 14:40-0400 Body weight 82.1 kg [facility] 05-03-2024 14:40-0400 Diastolic blood pressure 82 mm[Hg] [facility] 05-03-2024 14:40-0400 Heart rate 78 /min [facility] 05-03-2024 14:40-0400 SaO2% (BldA) [Mass fraction] 98 % [facility] 05-03-2024 14:40-0400 Systolic blood pressure 122 mm[Hg] [facility] 01-06-2024 14:20-0500 Body height 170.2 cm Deisy MUNOZ Work Phone: [facility] 01-06-2024 14:20-0500 Body mass index (BMI) [Ratio] 28.05 kg/m2 Deisy MUNOZ Work Phone: [facility] 01-06-2024 14:20-0500 Body weight 81.25 kg Deisy Villar ALEXANDER Work Phone: [facility] 01-06-2024 14:20-0500 Diastolic blood pressure 70 mm[Hg] Deisy Villar PA Work Phone: [facility] 01-06-2024 14:20-0500 Systolic blood pressure 120 mm[Hg] Deisy Villar ALEXANDER Work Phone: [facility] 10-02-2023 10:00-0400 Body height 170.18 cm Robles Ball Other [employer] Other 10-02-2023 10:00-0400 Body mass index (BMI) [Ratio] 29.38 kg/m2 Robles Ball Other [employer] Other 10-02-2023 10:00-0400 Body weight 85.1 kg Robles Ball Other [employer] Other 10-02-2023 10:00-0400 Diastolic blood pressure 83 mm[Hg] Robles Ball Other [employer] Other 10-02-2023 10:00-0400 Respiratory rate 12 /min Robles Ball Other [employer] Other 10-02-2023 10:00-0400 Systolic blood pressure 131 mm[Hg] Robles Ball Other [employer] Other 01-22-2023 10:30-0500 Body height 170.18 cm Robles Ball Other [employer] Other 01-22-2023 10:30-0500 Body mass index (BMI) [Ratio] 29.91 kg/m2 Robles Ball Other [employer] Other 01-22-2023 10:30-0500 Body weight 86.64 kg Robles Ball Other [employer] Other 01-22-2023 10:30-0500 Diastolic blood pressure 72 mm[Hg] Robles Ball Other [employer] Other 01-22-2023 10:30-0500 Respiratory rate 16 /min Robles Ball Other [employer] Other 01-22-2023 10:30-0500 Systolic blood pressure 122 mm[Hg] Robles Ball Other [employer] Other 09-26-2022 16:10-0400 Body height 170.18 cm Kiya Schaffer Other [employer] Other 09-26-2022 16:10-0400 Body mass index (BMI) [Ratio] 29.29 kg/m2 Kiya Schaffer Other [employer] Other 09-26-2022 16:10-0400 Body temperature 98.8 [degF] Kiya Schaffer Other [employer] Other 09-26-2022 16:10-0400 Body weight 84.82 kg Kiya Schaffer Other [employer] Other 09-26-2022 16:10-0400 Diastolic blood pressure 73 mm[Hg] Kiya Schaffer Other [employer] Other 09-26-2022 16:10-0400 Respiratory rate 18 /min Kiya Schaffer Other [employer] Other 09-26-2022 16:10-0400 SaO2% (BldA) [Mass fraction] 97 % Kiya Schaffer Other [employer] Other 09-26-2022 16:10-0400 Systolic blood pressure 125 mm[Hg] Kiya Schaffer Other [employer] Other 12-27-2021 10:15-0500 Body height 170.18 cm Elsi Mayer Other [employer] Other 12-27-2021 10:15-0500 Body mass index (BMI) [Ratio] 28.19 kg/m2 Elsi Mayer Other [employer] Other 12-27-2021 10:15-0500 Body temperature 100.3 [degF] Elsi Mayer Other [employer] Other 12-27-2021 10:15-0500 Body weight 81.65 kg Elsi Mayer Other [employer] Other 12-27-2021 10:15-0500 Respiratory rate 18 /min Elsi Mayer Other [employer] Other 12-27-2021 10:15-0500 SaO2% (BldA) [Mass fraction] 98 % Elsi Mayer Other [employer] Other Encounters Encounter Date Encounter Type Care Provider Facility Start: 08-08-2025 End: 08-08-2025 Clinisync Result Encounter Ángel Sita DO Work Phone: [facility] Unsolicited Start: 08-08-2025 End: 08-08-2025 Clinisync Result Encounter Ángel Sita DO Work Phone: [facility] Unsolicited Start: 08-07-2025 End: 08-07-2025 flow sheet Ángel Sita DO Work Phone: [facility] Comment on above: Third trimester preg lai ([facility]); 39 weeks gestation of ([facility]) Start: 08-07-2025 End: 08-07-2025 ambulatory ÁNGEL SITA Not Available Start: 08-07-2025 End: 08-07-2025 Bamboo flowsheet Ángel Sita DO Work Phone: [facility] Start: 08-07-2025 End: 08-07-2025 Bamboo flowsheet [...] flowsheet Ángel Sita DO Work Phone: [facility] Start: 08-03-2025 End: 08-03-2025 Bamboo flowsheet Ángel Sita DO Work Phone: [facility] Start: 08-03-2025 End: 08-03-2025 flow sheet Ángel Sita DO Work Phone: [facility] Comment on above: Third trimester preg lai ([facility]); 39 weeks gestation of ([facility]) Start: 08-03-2025 End: 08-03-2025 ambulatory ÁNGEL SITA [...] preg lai ([facility]); 37 weeks gestation of ([facility]) Start: 07-22-2025 End: 07-22-2025 Clinisync Result Encounter Ángel Sita DO Work Phone: [facility] Unsolicited Start: 07-22-2025 End: 07-22-2025 Clinisync Result Encounter Ángel Sita DO Work Phone: [facility] Unsolicited Start: 07-17-2025 End: 07-17-2025 flow sheet Ángel Sita DO Work Phone: [facility] Comment on above: 36 weeks gestation o f ([facility]); Third trimester ([facility]); History of miscarriage; Multigravida of advanced maternal age in third trimester ([facility]); Excessive growth affecting management of in third trimester, single or unspecified fetus ([facility]) Start: 07-17-2025 End: 07-17-2025 ambulatory ÁNGEL SITA [...] Comment on above: Third trimester preg lai ([facility]); 35 weeks gestation of ([facility]) Start: 07-10-2025 End: 07-10-2025 ambulatory ÁNGEL [...] Comment on above: Third trimester preg lai ([facility]); 33 weeks gestation of ([facility]) Start: 06-26-2025 End: 06-26-2025 ambulatory ÁNGEL SITA Not Available Start: 06-26-2025 End: 06-26-2025 ambulatory DEISY VILLAR Not Available Start: 06-24-2025 End: 06-24-2025 Clinisync Result Encounter Ángel Sita DO Work Phone: [facility] Unsolicited Start: 06-24-2025 End: 06-24-2025 Clinisync Result Encounter Nágel Sita DO Work [...] third trimester, single or unspecified fetus ([facility]) (Primary Dx); 31 weeks gestation of ([facility]); Third trimester ([facility]); History of miscarriage; Multigravida of advanced maternal age in third trimester ([facility]) Start: 06-12-2025 End: 06-12-2025 ambulatory ÁNGEL SITA [...] Comment on above: Third trimester preg lai ([facility]); 29 weeks gestation of ([facility]); History of miscarriage; Multigravida of advanced maternal age in third trimester ([facility]) Start: 05-30-2025 End: 05-30-2025 ambulatory ÁNGEL [...] Clinisync Result Encounter Deisy MUNOZ Work Phone: [facility] External Department Unsolicited Start: 03-02-2025 End: 03-02-2025 Bamboo flowsheet Deisy MUNOZ Work Phone: [facility] Start: 03-02-2025 End: 03-09-2025 Bamboo flowsheet Deisy MUNOZ Work Phone: [facility] Start: 03-02-2025 End: 03-09-2025 Clinisync Result Encounter Deisy MUNOZ Work Phone: [facility] External Department Unsolicited Start: 03-02-2025 End: 03-03-2025 External Result Encounter Deisy MUNOZ Work Phone: [facility] Unsolicited Start: 03-02-2025 End: 03-02-2025 Patient encounter procedure Deisy MUNOZ Work Phone: [facility] Start: 03-02-2025 End: 03-02-2025 Periodic preventive med est patient 18-39 yrs Deisy MUNOZ Work Phone: [facility] Comment on above: 17 [...] 10-18-2024 ambulatory Robles Charles DO Work Phone: [facility] Work Phone: Start: 10-18-2024 End: 10-18-2024 Encounter for general adult medical examination without abnormal findings Robles Ball DO Work Phone: [facility] Start: 10-18-2024 End: 10-18-2024 Patient encounter procedure Robles Ball DO Work Phone: [facility] Work Phone: Start: 10-16-2024 Patient encounter status Jermaine randy Ball DO Work Phone: [facility] Start: 10-14-2024 Non-patient / Non-visit Benjam in Nela DO Work Phone: [facility] Work Phone: Start: 09-22-2024 End: 09-22-2024 Departed Referred DO Robles Charles Work Phone: [facility] Start: 09-22-2024 End: 09-22-2024 ambulatory DO Robles Charles Work Phone: [facility] Work Phone: Start: 09-13-2024 End: 09-13-2024 [...] Available Start: 08-29-2024 End: 08-29-2024 ambulatory [facility] Work Phone: Start: 08-29-2024 End: 08-29-2024 Patient encounter procedure [facility] Work Phone: Start: 05-03-2024 End: 05-03-2024 ambulatory [facility] Work Phone: Start: 05-03-2024 End: 05-03-2024 Patient encounter procedure [facility] Work Phone: Start: 2024 End: 2024 ambulatory DO Robles Charles Work Phone: [facility] Work Phone: Start: 2024 End: 2024 Patient encounter procedure DO Robles Charles Work Phone: [facility] Work Phone: Start: 01-07-2024 End: 01-07-2024 Patient encounter procedure DO Robles Charles Work Phone: [facility] [employer] Work Phone: Start: 01-07-2024 End: 01-07-2024 ambulatory DO Robles Charles Work Phone: [facility] Work Phone: Start: 01-06-2024 End: 01-06-2024 Office outpatient visit 15 minutes Deisy MUNOZ Work Phone: [facility] Comment on above: Encounter for weight management; Hormone disorder; 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 Start: 10-02-2023 End: 10-02-2023 ambulatory Robles Charles Other [employer] Other Start: 10-02-2023 Encounter for genera l adult medical examination without abnormal findings Robles Charles [facility] Start: 10-02-2023 Periodic preventive med est patient 18-39 yrs Robles Charles [facility] Start: 09-17-2023 End: 09-17-2023 ambulatory MD Liz Conteh Work Phone: [facility] Work Phone: Start: 09-17-2023 End: 09-17-2023 Departed Referred MD Liz Conteh Work Phone: [facility] [employer] [facility] Start: 01-22-2023 End: 01-22-2023 ambulatory Robles Charles Other [employer] Other Start: 01-22-2023 Office outpatient vi sit 15 minutes Robles Charles [facility] Start: 01-12-2023 End: 01-12-2023 ambulatory Robles Charles Other [employer] Other Start: 01-12-2023 Telephone encounter Robles Charles [facility] Start: 12-24-2022 End: 12-24-2022 ambulatory Robles Charles Other [employer] Other Start: 12-24-2022 Office outpatient vi sit 15 minutes Robles Charles [facility] Start: 09-30-2022 End: 09-30-2022 ambulatory Kiya Schaffer Other [employer] Other Start: 09-30-2022 Telephone encounter Kiya Schaffer [facility] Start: 09-26-2022 End: 09-26-2022 Departed Referred MD Liz Conteh Work Phone: [facility] [employer] Start: 09-26-2022 End: 09-26-2022 ambulatory MD Liz Conteh Work Phone: [facility] Work Phone: Start: 09-26-2022 Office outpatient vi sit 15 minutes Kiya Schaffer [facility] Start: 09-25-2022 ([facility] C Vac) [facility] Co vid [facility]ine [facility] Start: 09-25-2022 End: 09-25-2022 ambulatory MD Liz Conteh Work Phone: [facility] Work Phone: Start: 09-25-2022 End: 09-25-2022 Patient encounter procedure MD Liz Conteh Work Phone: [facility] Start: 08-25-2022 End: 08-25-[address] ÁNGEL SITA Facility:[facility] Start: 08-07-2022 End: 08-07-2022 Departed Referred MD Liz Conteh Work Phone: [facility] Start: 06-06-2022 End: 06-07-[address] ROBLES CHARLES Facility:[facility] Start: 01-01-2022 End: 01-01-2022 ambulatory Elsi Hamond Other [facility] [employer] Other Start: 01-01-2022 Office outpatient vi sit 5 minutes Elsi Leyla [facility] Start: 12-27-2021 End: 12-27-2021 ambulatory Elsi Lyela Other [facility] [employer] Other Start: 12-27-2021 Office outpatient vi sit 15 minutes Elsi Leyla [facility] Start: 08-23-2021 ([facility] C Vac) [facility] Co vid Vaccine Subha Dillon [facility] Procedures Date Procedure Procedure Detail Performing Clinician Start: 08-08-2025 ALL CBC WITH AUTO DIFF Ángel Sita DO Work Phone: Start: 08-07-2025 [facility] UA (CLEAN/CATCH) CAPTAIN ASSISTANT/MICRO IF IND. Ángel Sita DO Work Phone: [...] 05-11-2025 US OB GROWTH Edson Justus fu CHILD CARE TEAM LEAD Work Phone: Start: 04-18-2025 ALL CBC WITH [...] 09-13-2029 Screening for malignant neoplasm of cervix [facility] Start: 03-02-2028 Screening for malignant neoplasm of cervix Pap Smear [facility] Start: 09-19-2025 End: 09-19-2025 Patient encounter procedure [facility] Start: 08-07-2025 End: 08-07-2025 Patient encounter procedure [facility] Comment on above: Arrived Start: 08-03-2025 End: 08-03-2025 Patient encounter procedure [facility] Comment on above: Arrived Start: 07-31-2025 Influenza vaccination [facility] Start: 07-24-2025 End: 07-24-2025 Patient encounter procedure 07/24/2025 11:20 AM EDT Routine [facility] [address] [place] [id number] Ángel Buckner DO [address] [place] [address] [facility] Start: 07-17-2025 End: 07-17-2025 Patient encounter procedure [facility] Comment on above: Arrived Start: 07-10-2025 End: 07-10-2026 CULTURE, GROUP B STREP WITH SUSCEPTIBLITY CULTURE, GROUP B STREP WITH SUSCEPTIBLITY Lab Routine Third trimester ([facility]) Expected: 07/10/2025, Expires: 07/10/2026 [facility] Work Phone: Comment on above: Expected: [...] third trimester, single or unspecified fetus ([facility]) Expected: 06/12/2025, Expires: 10/13/2025 [facility] Work Phone: Comment on above: Expected: 06/12/2025, Expires: Start: 05-30-2025 End: 11-30-2025 US biophysical profile w non stress test US biophysical profile w non stress test Imaging Routine History of miscarriage Multigravida of advanced maternal age in third trimester ([facility]) Expected: 05/30/2025 (Approximate), Expires: 11/30/2025 [facility] [...] EDT Ancillary Procedure [facility] [address] [place] [id number] [facility] Start: 04-03-2025 End: 04-03-2025 Patient encounter procedure 04/03/2025 9:50 AM EDT Routine [facility] [address] [place] [phone] Ángel Buckner, DO [address] [place] [address] [facility] Start: 04-03-2025 End: 04-03-2025 Professional / ancillary services management 04/03/2025 8:00 AM EDT Ancillary Procedure [facility] [address] [place] [phone] [facility] Start: 03-30-2025 End: 03-30-2026 [...] mellitus screening Expected: 03/30/2025 (Approximate), Expires: 03/30/2026 [facility] Comment on above: Expected: 03/30/2025 (Approximate), Expi res: 03/30/2026 Start: 03-30-2025 End: 06-30-2025 US for US OB limited 1+ fetuses Imaging Routine Encounter for follow-up ultrasound of anatomy Expected: 03/30/2025, Expires: 06/30/2025 [facility] Comment on above: Expected: 03/30/2025, Expires: [...] Routine [facility] [address] [place] [phone] Deisy Villar PA [address] [place] [address] Arrived [facility] Comment on above: Arrived Start: 02-02-2025 End: 02-02-2025 Patient encounter procedure [facility] Comment on above: Arrived Start: 01-05-2025 End: 01-05-2025 ambulatory 01/05/2025 1:30 PM EST Initial [facility] [address] [place] [phone] [facility] Start: 01-05-2025 End: 01-05-2025 Professional / ancillary services management 01/05/2025 1:00 PM EST Ancillary Procedure [facility] [address] [place] [phone] [facility] Start: 09-13-2024 End: 09-13-2024 Patient encounter procedure [facility] Comment on above: Arrived Start: 07-31-2024 Influenza vaccination Influenza Vaccine (#1) [facility] Start: 02-03-2024 End: 02-03-2024 Patient encounter procedure 02/03/2024 1:50 PM EST Office Visit [facility] [address] [place] [phone] Deisy Villar PA [address] [place] [address] [facility] Start: 01-07-2024 Dehydroepiandrosterone sulfate level [facility] Start: 01-07-2024 Sex hormone binding globulin measurement [facility] Start: 01-07-2024 T3 reverse measurement [facility] Start: 01-07-2024 Thyroxine measurement [facility] Start: 01-07-[address] [facility] Start: 01-06-2024 End: 01-06-2025 Anti-thyroglobulin antibody Anti-thyroglobulin antibody Lab Routine Hormone disorder Expected: 01/06/2024 (Approximate), Expires: 01/06/2025 [facility] Comment on above: Expected: 01/06/2024 (Approximate), Expi res: 01/06/2025 Start: 01-06-2024 End: 01-06-2025 C-peptide C-peptide Lab Routine Hormone disorder Expected: 01/06/2024 (Approximate), Expires: 01/06/2025 [facility] Comment on above: Expected: 01/06/2024 (Approximate), Expi res: 01/06/2025 Start: 01-06-2024 End: 01-06-2025 Cortisol free Cortisol, free Lab Routine Hormone disorder Expected: 01/06/2024 (Approximate), Expires: 01/06/2025 [facility] Comment on above: Expected: 01/06/2024 (Approximate), Expi res: 01/06/2025 Start: 01-06-2024 End: 01-06-2025 Glucose [Mass/volume] in Serum or Plasma Glucose, random Lab Routine Hormone disorder Expected: 01/06/2024 (Approximate), Expires: 01/06/2025 [facility] Comment on above: Expected: 01/06/2024 (Approximate), Expi res: 01/06/2025 Start: 01-06-2024 End: 01-06-2025 Insulin, total Insulin, total Lab Routine Hormone disorder Expected: 01/06/2024 (Approximate), Expires: 01/06/2025 [facility] Comment on above: Expected: 01/06/2024 (Approximate), Expi res: 01/06/2025 Start: 01-06-2024 End: 01-06-2025 Serotonin serum Serotonin serum Lab Routine Hormone disorder Expected: 01/06/2024 (Approximate), Expires: 01/06/2025 [facility] Comment on above: Expected: 01/06/2024 (Approximate), Expi res: 01/06/2025 Start: 01-06-2024 End: 01-06-2025 Thyroglobulin Thyroglobulin Lab Routine Hormone disorder Expected: 01/06/2024 (Approximate), Expires: 01/06/2025 [facility] Comment on above: Expected: 01/06/2024 (Approximate), Expi res: 01/06/2025 Start: 01-06-2024 End: 01-06-2025 Thyrotropin [Units/volume] in Serum or Plasma [facility] Comment on above: Ordered: 01/06/2024 Expected: 01/06/2024 (Approximate), Expires: 01/06/2025 Start: 09-17-[address] [facility] Start: 08-07-2022 [facility] Work Phone: Calcitriol [Mass/vol ume] in Serum or Plasma [facility] CHLAMYDIA TRACHOMATI S (GENITO/STI) CHLAMYDIA TRACHOMATIS (GENITO/STI) Lab Routine Exposure to STD Ordered: 03/02/2025 [facility] Comment on above: Ordered: 03/02/2025 Cytology Cervical or vaginal smear or scraping study Pap Smear Pathology and Cytology Routine Well woman exam with routine gynecological exam Ordered: 09/13/2024 [facility] Work Phone: Comment on above: Ordered: 09/13/2024 Cytology Cervical or vaginal smear or scraping study Pap Smear Pathology and Cytology Routine Well woman exam with routine gynecological exam Ordered: 03/02/2025 [facility] Comment on above: Ordered: 03/02/2025 DHEA-sulfate DHEA-sulfate Lab Routine Hormone disorder Ordered: 01/06/2024 [facility] Comment on above: Ordered: 01/06/2024 Estradiol Estradiol Lab Ro utine Hormone disorder Ordered: 01/06/2024 [facility] Work Phone: Comment on above: Ordered: 01/06/2024 Estradiol (E2) [Mass /volume] in Serum or Plasma [facility] Estrone Estrone Lab Rout ine Hormone disorder Ordered: 01/06/2024 [facility] Comment on above: Ordered: 01/06/2024 Estrone (E1) [Mass/v olume] in Serum or Plasma [facility] Ferritin [Mass/volum e] in Serum or Plasma Ferritin Lab Routine Hormone disorder Ordered: 01/06/2024 [facility] Comment on above: Ordered: 01/06/2024 Hemoglobin A1c measurement Hemog lobin A1c Lab Routine Hormone disorder Ordered: 01/06/2024 [facility] Comment on above: Ordered: 01/06/2024 Human papilloma viru s DNA [Presence] in Unspecified specimen by Probe with amplification HPV DNA probe, amplified Microbiology Routine Well woman exam with routine gynecological exam Ordered: 09/13/2024 [facility] Comment on above: Ordered: 09/13/2024 Human papilloma viru s DNA [Presence] in Unspecified specimen by Probe with amplification HPV DNA probe, amplified Microbiology Routine Well woman exam with routine gynecological exam Ordered: 03/02/2025 [facility] Comment on above: Ordered: 03/02/2025 Insulin [Units/volum e] in Serum [facility] [facility] Neisseria gonorrhoea e DNA [Presence] in Unspecified specimen by ROB with probe detection Neisseria gonorrhea DNA probe, direct Lab Routine Exposure to STD Ordered: 03/02/2025 [facility] Comment on above: Ordered: 03/02/2025 Progesterone Progesterone Lab Routine Hormone disorder Ordered: 01/06/2024 [facility] Comment on above: Ordered: 01/06/2024 Progesterone [Mass/v olume] in Serum or Plasma [facility] Serotonin [Mass/volu me] in Plasma [facility] Sex hormone binding globulin Sex hormone binding globulin Lab Routine Hormone disorder Ordered: 01/06/2024 [facility] Comment on above: Ordered: 01/06/2024 SURESWAB(R) ADVANCED VAGINITIS PLUS, TMA SURESWAB(R) ADVANCED VAGINITIS PLUS, TMA Pathology and Cytology Routine Vaginal discharge Ordered: 03/02/2025 [facility] Work Phone: Comment on above: Ordered: 03/02/2025 T3, reverse T3, reverse Lab Routine Hormone disorder Ordered: 01/06/2024 [facility] Comment on above: Ordered: 01/06/2024 Testosterone Free [Mass/volume] in Serum or Plasma [facility] TESTOSTERONE, FREE TESTOSTERONE, FREE Lab Routine Hormone disorder Ordered: 01/06/2024 [facility] Comment on above: Ordered: 01/06/2024 Testosterone, free, total Testos terone, free, total Lab Routine Hormone disorder Ordered: 01/06/2024 [facility] Comment on above: Ordered: 01/06/2024 Throat culture Throat Culture [facility] Thyroglobulin Ab [Units/volume] in Serum or Plasma [facility] Thyroid peroxidase antibody Thyr oid peroxidase antibody Lab Routine Hormone disorder Ordered: 01/06/2024 [facility] Comment on above: Ordered: 01/06/2024 Thyroperoxidase Ab [Units/volume] in Serum or Plasma [facility] Thyroxine (T4) free [Mass/volume] in Serum or Plasma T4, free Lab Routine Hormone disorder Ordered: 01/06/2024 [facility] Comment on above: Ordered: 01/06/2024 Triiodothyronine (T3 ) Free [Mass/volume] in Serum or Plasma T3, free Lab Routine Hormone disorder Ordered: 01/06/2024 [facility] Comment on above: Ordered: 01/06/2024 Vitamin D 1,25 dihydroxy Vitamin D 1,25 dihydroxy Lab Routine Hormone disorder Ordered: 01/06/2024 [facility] Comment on above: Ordered: 01/06/2024 [facility] Work Phone: Immunizations Immunization Date Immunization Notes Care Provider Fa kaylynn 09-15-2023 influenza, injectabl e, quadrivalent, preservative free [facility] 09-15-2023 influenza virus vaccine, unspecified formulation Ángel Buckner DO Work Phone: [facility] 09-25-2022 COVID-19 Moderna (BIvalent) Kiya Schaffer Other [facility] 08-23-2021 COVID-19 Pfizer Subha Fitt Other [facility] 07-31-2021 COVID-19 Pfizer Subha Fitt Other [facility] 05-19-2021 diphtheria, tetanus toxoids and pertussis vaccine [facility] Payers Date Payer Category Payer Self-pay [id number] 2022 Private Health Insurance [employer] [id number] 2022 Unknown [employer] [id number] 2022-Present [address] [place] [address] [id number] 1990 Unknown [id number] 2.16.840.1.595188.3.579.2 .593 1990 Unknown [id number] 2.16.840.1.751491.3.579.2 .593 1990 Unknown [id number] 2.16840.1.263240.3.579.2 .1259 1990 Unknown [id number] 2.16.840.1.090469.3.579.2 .1259 1990 Unknown [id number] 2.16.840.1.482168.3.579.2 .1259 1990 Unknown [id number] 2.16.840.1.106193.3.579.2 .1259 1990 Unknown [id number] 2.16.840.1.913055.3.579.2 .1259 1990 Unknown [id number] 2.16.840.1.940283.3.579.2 .9 1990 Unknown [id number] 2.16.840.1.042104.3.579.2 .1258 1990 Unknown [id number] 2.16.840.1.631383.3.579.2 .1258 1990 Unknown [id number] 2.16.840.1.430668.3.579.2 .1258 1990 Unknown [id number] 2.16.840.1.311936.3.579.2 .1258 1990 Unknown [id number] 2.16.840.1.203734.3.579.2 .1258 1990 Unknown [id number] 2.16.840.1.359626.3.579.2 .1258 1990 Unknown [id number] 2.16.840.1.013506.3.579.2 .1258 1990 Unknown [id number] 2.16.840.1.848538.3.579.2 .1258 1990 Unknown [id number] 2.16.840.1.711384.3.579.2 .1258 1990 Unknown [id number] 2.16.840.1.586720.3.579.2 .1258 1990 Unknown [id number] 2.16.840.1.021568.3.579.2 .9 1959 Unknown [id number] 2.16.840.1.700626.19 Unknown [id number] 2.16.840.1.771318.3.579.2 .531 Unknown [id number] 2.16.840.1.421942.3.579.2 .531 Worker's Compensation [facility] t Ind [id number] Social History Date Type Detail Facility Start: 10-13-2023 End: 09-13-2024 Sex Assigned At [facility] Start: 1990 Sex Assigned At [facility] Start: 08-13-2023 End: 05-03-2024 Tobacco smoking [...] Gender identity Identifies as female gender (finding) [facility] Start: 10-18-2024 Sex Female (finding) [facility] Start: 11-16-2024 [facility] Clinical Notes 08-23-2021 to 08-07-2025 Mary Lou Kearney LPN - 08/07/2025 3:00 PM Joselito Kearney, MARKET RESEARCH MANAGER - 08/03/2025 9:10 AM Margaret Dewitt NP - 07/24/2025 11:20 AM Joselito Kearney, MARKET RESEARCH MANAGER - 07/17/2025 2:50 PM EDT Note Date [...] note reviewed. Exam conducted with a forensic pathologist present. Vitals: Estimated body mass index is 36.34 kg/m as calculated from the following: Height as of 01/06/24: 5' 7 . Weight as of this encounter: 232 lb. BP: 130/80 Patient's last menstrual period was 11/02/2024. ASSESSMENT & PLAN ICD-10-CM 1. Third trimester ([facility]) Z34.93 POCT urinalysis dipstick manually resulted 2. 39 weeks gestation of ([facility]) Z3A.39 Patient presents today for a routine obstetrics appointment. Patient is currently 39w6d with a Estimated Date of Delivery: 08/09/25. Patient to have IOL on 08/08/25. Documented by Mary Lou Kearney LPN on behalf of: Ángel Buckner DO documented in this encounter [facility] 08-03-2025 History of Presen t illness Narrative [...] note reviewed. Exam conducted with a forensic pathologist present. Vitals: Estimated body mass index is 36.46 kg/m as calculated from the following: Height as of 01/06/24: 5' 7 . Weight as of this encounter: 232 lb 12.8 oz. BP: 120/76 Patient's last menstrual period was 11/02/2024. ASSESSMENT & PLAN ICD-10-CM 1. Third trimester ([facility]) Z34.93 POCT urinalysis dipstick manually resulted 2. 39 weeks gestation of ([facility]) Z3A.39 POCT urinalysis dipstick manually resulted Patient presents today for a routine obstetrics appointment. Patient is currently 39w1d with a Estimated Date of Delivery: 08/09/25. Patient to have IOL on 08/08/25 0600. RTC for appointment. Documented by Mary Lou Kearney LPN on behalf of: Ángel Buckner DO documented in this encounter [facility] 07-24-2025 History of Presen t illness Narrative [...] note reviewed. Exam conducted with a forensic pathologist present. Vitals: Estimated body mass index is 36.57 kg/m as calculated from the following: Height as of 01/06/24: 5' 7 . Weight as of this encounter: 233 lb 8 oz. BP: 118/74 Patient's last menstrual period was 11/02/2024. ASSESSMENT & PLAN ICD-10-CM 1. Third trimester ([facility]) Z34.93 POCT urinalysis dipstick manually resulted 2. 37 weeks gestation of ([facility]) Z3A.37 Return OB: Patient presents today for [...] Ángel Buckner DO documented in this encounter [facility] 07-17-2025 History of Presen t illness Narrative [...] note reviewed. Exam conducted with a forensic pathologist present. Vitals: Estimated body mass index is 36.77 kg/m as calculated from the following: Height as of 01/06/24: 5' 7 . Weight as of this encounter: 234 lb 12.8 oz. BP: 118/70 Patient's last menstrual period was 11/02/2024. ASSESSMENT & PLAN ICD-10-CM 1. 36 weeks gestation of ([facility]) Z3A.36 POCT urinalysis dipstick manually resulted 2. Third trimester ([facility]) Z34.93 POCT urinalysis dipstick manually resulted 3. History of miscarriage Z87.59 4. Multigravida of advanced maternal age in third trimester ([facility]) O09.523 5. Excessive growth affecting management of in third trimester, single or unspecified fetus ([facility]) O36.63X0 Patient presents today for a routine obstetrics appointment. Patient is currently 36w5d with a Estimated Date of Delivery: 08/09/25. Pelvic exam performed and patient is currently 2cm and 70% effaced. Patient to return to clinic in 1 week. Documented by Mary Lou Kearney LPN on behalf of: Ángel Buckner DO documented in this encounter [facility] 07-10-2025 History of Presen t illness Narrative [...] trimester ([facility]) Z34.93 CULTURE, GROUP B STREP WITH SUSCEPTIBLITY CULTURE, GROUP B STREP WITH SUSCEPTIBLITY 2. 35 weeks gestation of ([facility]) Z3A.35 POCT urinalysis dipstick manually resulted Return [...] Ángel Buckner DO documented in this encounter [facility] 06-26-2025 History of Presen t illness Narrative [...] note reviewed. Exam conducted with a forensic pathologist present. Vitals: Estimated body mass index is 36.2 kg/m as calculated from the following: Height as of 24: 5' 7 . Weight as of this encounter: 231 lb 1.9 oz. BP: 116/74 Patient's last menstrual period was 11/02/2024. ASSESSMENT & PLAN (Z34.93) Third trimester ([facility]) Plan: POCT urinalysis dipstick manually resulted (Z3A.33) 33 weeks gestation of ([facility]) Plan: POCT urinalysis dipstick manually resulted Patient presents today for a routine obstetrics appointment. Patient is currently 33w5d with a Estimated Date of Delivery: 08/09/25. Patient to return to clinic in 2 weeks for GBS. Documented by Mary Lou Kearney LPN on behalf of: Ángel Buckner DO documented in this encounter [facility] 06-12-2025 History of Presen t [...] third trimester, single or unspecified fetus ([facility]) O36.63X0 US OB follow up transabdominal approach 2. 31 weeks gestation of ([facility]) Z3A.31 POCT urinalysis dipstick manually resulted 3. Third trimester ([facility]) Z34.93 POCT urinalysis dipstick manually resulted 4. History of miscarriage Z87.59 5. Multigravida of advanced maternal age in third trimester ([facility]) O09.523 Return OB: Patient presents today [...] Ángel Buckner DO documented in this encounter [facility] 05-30-2025 History of Presen t [...] note reviewed. Exam conducted with a forensic pathologist present. Vitals: Estimated body mass index is [...] Ángel Buckner DO documented in this encounter [facility] 05-01-2025 History of Presen t [...] note reviewed. Exam conducted with a forensic pathologist present. Vitals: Estimated body mass index is [...] for routine OB appointment. Documented by Edson eDwitt NP on behalf of: Edson Dewitt NP documented in this encounter [facility] 03-30-2025 History of Presen t [...] note reviewed. Exam conducted with a forensic pathologist present. Vitals: Estimated body mass index is [...] Lou Kearney LPN on behalf of: Ángel uBckner DO documented in this encounter [facility] 03-02-2025 History of Presen t [...] Diagnosis Date Fatigue GARTH (generalized anxiety disorder) ([facility]) Hyperlipidemia ([facility]) Paronychia, finger HISTORY PAST MEDICAL HISTORY SOCIAL [...] note reviewed. Exam conducted with a forensic pathologist present. Vitals: Estimated body mass index is [...] obtained without difficulty [facility]. Orders Placed [...] of: ALEXANDER Gramajo documented in this encounter [facility] 02-02-2025 History of Presen t [...] Ángel Buckner DO documented in this encounter [facility] 09-13-2024 History of Presen t [...] note reviewed. Exam conducted with a forensic pathologist present. Vitals: Estimated body mass index is [...] Ángel Buckner DO documented in this encounter [facility] 01-06-2024 History of Presen t [...] Diagnosis Date Fatigue GARTH (generalized anxiety disorder) ([facility]) Hyperlipidemia ([facility]) Paronychia, finger Family History Problem Relation [...] of: ALEXANDER Gramajo documented in this encounter [facility] 10-02-2023 Evaluation note Encounter Date [...] prior to bedtime. Weight loss. Pepcid PRN [facility] Other 2023 Evaluation note* Encounter Date Diagnosis Assessment Notes Treatment Notes Treatment Clinical Notes Dec, Nasal turbinate hypertrophy (ICD-10 - J34.3) FLonase, saline NS, Sudafed and avoid use of Afin. Refer to ENT. Dec, Nonallergic vasomotor rhinitis (ICD-10 - J30.0) Prednisone tapered over 8 days. Claritin as needed. [facility] Other 02-13-2023 Evaluation note* Encounter Date Diagnosis Assessment Notes Treatment Notes Treatment Clinical Notes Dec, Acute non-recurrent maxillary sinusitis (ICD-10 - J01.00) [facility] Other 01-25-2023 Evaluation note* Encounter Date Diagnosis Assessment Notes Treatment Notes Treatment Clinical Notes Nov, Acute non-recurrent maxillary sinusitis (ICD-10 - J01.00) Instructed to use Robitussin or Mucinex for cough, saline or Flonase NS for congestion, Tylenol for pain and fever. [facility] Other 10-28-2022 Evaluation note* Encounter Date Diagnosis [...] (suspected) exposure to covid-19 (ICD-10 - Z20.822) [facility] Other 10-27-2022 Evaluation note* Encounter Date Diagnosis Assessment Notes Treatment Notes Treatment Clinical Notes Aug, Encounter for immunization (ICD-10 - Z23) Patient presents today for COVID-19 vaccination booster. Patient pre-vaccination form answers reviewed. Patient denies current illness or allergic reaction to any component of a COVD-19 vaccine. Patient provided with copy of current EUA. [facility] Other 02-02-2022 Evaluation note* Encounter Date Diagnosis [...] Patient care instructions given in writting by [facility] document. Additional time spent conducting pre-visit phone call, screening for symptoms, instructions on social distancing, application and removal of PPE, and cleaning of examination room, equipment and supplies was preformed. Patient education given for testing methodology and results. Patient care instructions given in writting by [facility] document. [facility] Other 01-28-2022 Evaluation note* Encounter Date Diagnosis [...] Patient care instructions given in writting by [facility] document. [facility] Other 09-24-2021 Evaluation note* Encounter Date Diagnosis Assessment Notes Treatment Notes Treatment Clinical Notes Jul, Encounter for immunization (ICD-10 - Z23) Patient presents for COVID-19 vaccination #2. Pre-screening form answers evaluated with patient. Patient denies current illness or allergic reaction to component of COVID-19 vaccine. Patient provided with current copy of EUA. [facility] Other Evaluation noteNo assessment information available [facility] Work Phone: Evaluation noteNo InformationNort [facility] Other Evaluation note* Diagnosis Encounter for weight management Hormone disorder Unspecified endocrine disorder 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 [facility] Diagnosis Well woman exam with routine gynecological exam Routine gynecological examination [facility]* Diagnosis Onset Date Resolution Status Admit Date Hypercholesteremia acute Novemb er 2023 11:13am Wellness examination acute Nove mber 2023 11:13am [facility] Work Phone: Evaluation note* Diagnosis [...] know Surgical history Hospitalization History see above [facility] Other History general Narrative - Reported* Type Description Date Medical History Child X2 Natural Surgical History No Surgical history information Hospitalization History see above [facility] Other History general Narrative - Reported* Type Description Date Medical History Child X2 Natural Medical History Body mass index (BMI) of 25.0 to 29.9 Medical History Fatigue Medical History Hyperlipidemia, group A Medical History GARTH (generalized anxiety disorde r) Surgical History No know Surgical history Hospitalization History No know Hospitalization history [facility] Other Chief Complaint and Reason for Visit [...] Nasal turbinate hype rtrophy (J34.3) Referral Organization [facility] Nela russo Referring Provider First Name Robles Referring Provider Last Name Nela Referring Provider Specialty Internal Me dicine Referred Organization [facility] Referred Provider Robles Hernandez Referred Address ,[place], [place],[address] Referred Provider Specialty Otolaryngolo gy Referral Priority Routine Referral Appointment Date 2023-02-04 General Notes Rosangela Cruz 09:25:33 AM >received today, notes locked, insurance card attached, referral faxed Rosangela Cruz 01/29/2023 12:42:25 PM >Shannan at Dr. Rodriges office requested referral be faxed again to [phone]. done! 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 Specialty Start Date End Date Robles Charles MD [address] [place] [address] PCP - General Internal Medicine 07/30/23 Team Status: Inactive Member Role Status Dates Robles Charles DO Primary Care Provide r, Attending Provider Active Start: 2024 End: 2024 Team Status: Inactive Member Role Status Dates Robles Charles DO Primary Care Provider Active Start: May 03, 2024 End: May 03, 2024 Caro Chacon APRN [employer]ILD [employer] TEAM [employer]AD-C Attending Provider Act alex Start: May 03, 2024 End: May 03, 2024 Team Status: Inactive Member Role Status Dates Robles Charles DO Primary Care Provide r, Attending Provider Active Start: August 29, 2024 End: August 29, 2024 Strike On Machine Operator Relationship Specialty Start Date End Date Robles Charles MD [address] [place] [address] PCP - General Internal Medicine 07/30/23 Deisy Villar PA [address] [place] [address] [place] [address] PCP - Medical [employer] 11/30/23 11/29/99 Strike On Machine Operator Relationship Specialty Start Date End Date Robles Charles MD [address] [place] [id number] PCP - General Internal Medicine 07/30/23 Deisy Villar PA [address] [place] [address] [place] [address] PCP - Medical [employer] 11/30/23 11/29/99 Strike On Machine Operator Relationship Specialty Start Date End Date Robles Charles MD [address] [place] [address] PCP - General Internal Medicine 07/30/23 Deisy Villar PA [address] [place] [address] [place] [address] PCP - Medical [employer] 11/30/23 11/29/99 Team Status: Inactive Member Role Status Dates Robles Charles DO Primary Care Provider Active Start: September 22, 2024 End: September 22, 2024 Delano Francis - [facility] , DO [facility] Attending Provider Active Start: September 22, 2024 End: September 22, 2024 Team Status: Active Member Role Status Dates Robles Chalres DO Primary Care Provide r, Attending Provider Active Start: October 14, 2024 Team Status: Inactive Member Role Status Dates Robles Charles DO Primary Care Provide r, Attending Provider Active Start: October 18, 2024 End: October 18, 2024 Strike On Machine Operator Relationship Specialty Start Date End Date Robles Charles MD [address] [place] [address] PCP - General Internal Medicine 07/30/23 Deisy Villar PA [address] [place], [place] [address]just[place] [address] PCP - Medical [employer] 11/30/23 11/29/99 Strike On Machine Operator Relationship Specialty Start Date End Date Robles Charles MD [address] [place] [address] PCP - General Internal Medicine 07/30/23 Deisy Villar PA [address] [place] [address] [place] [address] PCP - Medical [employer] 11/30/23 11/29/99 Strike On Machine Operator Relationship Specialty Start Date End Date Robles Charles MD [address] [place] [address] PCP - General Internal Medicine 07/30/23 Deisy Villar PA [facility] [place] [address] PCP - Medical [employer] 11/30/23 11/29/99 Strike On Machine Operator Relationship Specialty Start Date End Date Robles Charles MD [address] [facility] [place] [address] PCP - General Internal Medicine 07/30/23 Deisy Villar PA [address] [place] [address] Dr [place]ran, [place] [id number] PCP - Medical [employer] 11/30/23 11/29/99 Strike On Machine Operator Relationship Specialty Start Date End Date Robles Charles MD PCP - General Internal Medicine 07/30/23 Deisy Villar PA [address] [place] [address] Dr [place]ran, [place] [id number] PCP - Medical [employer] 11/30/23 11/29/99 Strike On Machine Operator Relationship Specialty Start Date End Date Robles Charles DO PCP - General Internal Medicine 07/30/23 Deisy Villar, PA [address] [place] [address] [place] [address] PCP - Medical [employer] 11/30/23 11/29/99 Strike On Machine Operator Relationship Specialty Start Date End Date Robles Charles DO [address] [facility] [place] [address] PCP - General Internal Medicine 07/30/23 Deisy Villar PA [address] [place] [address] [place] [address] PCP - Medical [employer] 11/30/23 11/29/99 Strike On Machine Operator Relationship Specialty Start Date End Date Robles Charles DO [address] [facility] [place] [address] PCP - General Internal Medicine 07/30/23 Deisy Villar PA [address] [place] [address] PCP - Medical [employer] 11/30/23 11/29/99 Strike On Machine Operator Relationship Specialty Start Date End Date Robles Charles DO [address] [facility] [place] [place] [address] PCP - General Internal Medicine 07/30/23 Deisy Villar PA [address] [place] [address] [place] [address] PCP - Medical [employer] 11/30/23 11/29/99 Strike On Machine Operator Relationship Specialty Start Date End Date Robles Charles DO [address] [facility] [place] [address] PCP - General Internal Medicine 07/30/23 Deisy Villar PA [address] [place] [address] [place] [address] PCP - Medical [employer] 11/30/23 11/29/99 Strike On Machine Operator Relationship Specialty Start Date End Date Robles Charles DO [address] [facility] [place] [address] PCP - General Internal Medicine 07/30/23 Deisy Villar, PA [address] [place], [place] [id number] PCP - Medical [employer] 11/30/23 11/29/99 Strike On Machine Operator Relationship Specialty Start Date End Date Robles Charles DO [address] [place] [facility] [place] [address] PCP - General Internal Medicine 07/30/23 Deisy Villar PA [address] [place], [place] [id number] PCP - Medical [employer] 11/30/23 11/29/99 Strike On Machine Operator Relationship Specialty Start Date End Date Robles Charles DO [address] [place] [address] PCP - General Internal Medicine 07/30/23 Deisy Villar PA [address] [place], [place] [address]justus Ramachandran, [facility] PCP - Medical [employer] 11/30/23 11/29/99 Strike On Machine Operator Relationship Specialty Start Date End Date Robles Charles DO [address] [place] [facility] [place] [address] PCP - General Internal Medicine 07/30/23 Deisy Villar, PA [address] [place], [place] [address]justus [place], [place] [id number] PCP - Medical [place] [employer] 11/30/23 11/29/99 Strike On Machine Operator Relationship Specialty Start Date End Date Robles Charles DO [address] [place] [address] PCP - General Internal Medicine 07/30/23 Deisy Villar PA [facility] Radha Ramachandran, [place] [phone] PCP - Medical [place] [employer] 11/30/23 11/29/99 Strike On Machine Operator Relationship Specialty Start Date End Date Robles Charles DO [address] [place] [address] PCP - General Internal Medicine 07/30/23 Deisy Villar PA [address] [place] [address] [place] [address] PCP - Medical [place] [employer] 11/30/23 11/29/99 Strike On Machine Operator Relationship Specialty Start Date End Date Robles Charles DO [address] [place] [address] PCP - General Internal Medicine 07/30/23 Deisy Villar PA [address] [place] [address] [place] [address] PCP - Medical [place] [employer] 11/30/23 11/29/99 Strike On Machine Operator Relationship Specialty Start Date End Date Robles Charles DO [address] [place] [address] PCP - General Internal Medicine 07/30/23 Deisy Villar PA [address] [place] [address] [place] [address] PCP - Medical [place] [employer] 11/30/23 11/29/99 Goals (unrecognized section and content) Goals may be documented in a n alternate section INFORMATION SOURCE (unrecogn ized section and content) DATE CREATED AUTHOR 09/02/2022 [facility] DATE CREATED AUTHOR AUTHOR'S ORGANIZ ATION 09/23/2024 [facility] DATE CREATED AUTHOR AUTHOR'S ORGANIZ ATION 08/09/2025 [facility] Specialists [facility] FOR RECORDS PERTAINING TO PATIENTS WHO ARE [...] THE PRIMARY CLINICAL RECORDS. [facility] [employer] [facility]. provides no warranty or guarantee of the accuracy or completeness of information in this document.
== END 2025-08-09 13:00 | disposition home or self-care (01) | DRG 807 ==
PROVIDERS: Admitting Provider Obstetrics & Gynecology; PCP Internal Medicine; Visit Provider Obstetrics & Gynecology
DX: O26.893 Other specified pregnancy related conditions, third trimester (principal); Z37.0 Single live birth; O70.1 Second degree perineal laceration during delivery; Z3A.39 39 weeks gestation of pregnancy; Z67.11 Type A blood, Rh negative
CPT/HCPCS: 36415; 59050; 59410; 80307; 81001; 85025; 86850; 86900; 86901; 87086

== ENCOUNTER 2025-08-11 09:53 | Outpatient (OUT) | payer OTHER, SELFPAY ==
--- OUTSIDE RECORDS SUMMARY | 2025-08-03 09:10 | XMS_ITS | Encounter Summary ---
Author Organization [facility] Address [address] [place] [address] Care Team Providers Care Director Of Advertising Sales Name Role Phone Robles Charles DO Primary Care Provider [phone] Deisy Haji Unavailable Reason for Visit * Reason Comments Routine Visit Encounter Details Date Type Department Care Team (Late st Contact Info) Description 08/03/2025 9:10 AM EDT Routine [facility] [address] [place] [id number] Ángel Buckner DO [address] [facility], [facility] Third trimester ([facility]); 39 weeks gestation of ([facility]) Social History Tobacco Use Types Packs/Day Years [...] nursing note reviewed. Exam conducted with a forensic medical examiner present. Vitals: Estimated body mass index is 36.46 kg/m?? as calculated from the following: Height as of 01/06/24: 5' 7 . Weight as of this encounter: 232 lb 12.8 oz. BP: 120/76 Patient's last menstrual period was 11/02/2024. ASSESSMENT & PLAN ICD-10-CM 1. Third trimester ([facility]) Z34.93 POCT urinalysis dipstick manually resulted 2. 39 weeks gestation of ([facility]) Z3A.39 POCT urinalysis dipstick manually resulted Patient [...] EDT Office Visit [facility] [address] [place] [address] Ángel Buckner DO [address] [place] [address] documented as of this encounter Procedures Procedure Name Priority Date/Time Associated Diagnosis Comments POCT URINALYSIS DIPSTICK Routine 08/03/2025 9:37 AM EDT Third trimester ([facility]) 39 weeks gestation of ([facility] documented in this encounter Results * (ABNORMAL) [...] this encounter Visit Diagnoses Diagnosis Third trimester ([facility]) state, incidental 39 weeks gestation of ([facility]) documented in this encounter Care Teams Director Of Advertising Sales Relationship Specialty Start Date End Date Robles Charles DO [address] [place] [address] PCP - General Internal Medicine 07/30/23 Deisy Haji PA [address] [place] [address] [place] [address] PCP - Medical [place] [employer] 11/30/23 11/29/99 documented as of this encounter
--- OUTSIDE RECORDS SUMMARY | 2025-08-07 15:00 | XMS_ITS | Encounter Summary ---
Author Organization [facility] Address [address] [place] [address] Care Team Providers Care Patient Services Coordinator Name Role Phone Robles Charles DO Primary Care Provider [phone] Deisy Haji Unavailable Reason for Visit * Reason Comments Routine Visit Encounter Details Date Type Department Care Team (Late st Contact Info) Description 08/07/2025 3:00 PM EDT Routine [facility] [address] [facility] [place] [phone] Ángel Buckner DO [address] [facility] [address] Arash Kaur, [facility]11 Third trimester ([facility]); 39 weeks gestation of ([facility]) Social History Tobacco Use Types Packs/Day [...] encounter Progress Notes * Mary Lou Kearney, LEARNING DESIGN SPECIALIST - 08/07/2025 3:00 PM EDT Reason for [...] nursing note reviewed. Exam conducted with a talent development coordinator present. Vitals: Estimated body mass index is 36.34 kg/m?? as calculated from the following: Height as of 01/06/24: 5' 7 . Weight as of this encounter: 232 lb. BP: 130/80 Patient's last menstrual period was 11/02/2024. ASSESSMENT & PLAN ICD-10-CM 1. Third trimester ([facility]) Z34.93 POCT urinalysis dipstick manually resulted 2. 39 weeks gestation of ([facility]) Z3A.39 Patient presents today for a routine [...] Visit [facility] [address] [place] [address] Ángel Buckner DO [address] [place] [address] documented as of this encounter Procedures Procedure Name Priority Date/Time Associated Diagnosis Comments POCT URINALYSIS DIPSTICK Routine 08/07/2025 3:41 PM EDT Third trimester ([facility]) documented in this encounter Results * [...] encounter Visit Diagnoses Diagnosis Third trimester ([facility]) state, incidental 39 weeks gestation of ([facility]) documented in this encounter Care Teams Patient Services Coordinator Relationship Specialty Start Date End Date Robles Charles DO [address] [facility] [place] [address] PCP - General Internal Medicine 07/30/23 Deisy Haji PA [address] [place] [address] [place] [address] PCP - Medical [place] [employer] 11/30/23 11/29/99 documented as of this encounter
--- OUTSIDE RECORDS SUMMARY | 2025-08-11 10:01 | XMS_ITS | Encounter Summary ---
Author Organization [facility] Address [address] [place] [address] Care Team Providers Care Client Care Consultant Name Role Phone MelvinRobles Justus CRESPO Primary Care Provider [phone] Deisy Haji Unavailable Encounter Details Date Type Department Care Team (Late st Contact Info) Description 08/05/2025 Clinisync Result Encounter [facility] External Department Unsolicited Le Buckner DO [address] [facility] [address] [place] [address] Social History Tobacco Use Types [...] EDT Office Visit [facility] Natasha OBGYN [address] [facility] [place] [phone] Le Buckner DO [address] [facility] [place] [address] documented as of this encounter Procedures Procedure Name Priority Date/Time Associated Diagnosis Comments US OB BPP W NON-STRESS 08/05/2025 9:03 AM EDT documented in this encounter Results * US OB BPP W NON-STRESS (08/05/2025 9:03 AM EDT) Anatomical Region Laterality Modality Other 08/05/2025 9:03 AM EDT Narrative 08/05/2025 9:05 AM EDT [address] [address] Ultrasound Report Signed Patient: PHILLIP HERNANDEZ MR#: [id number] : 1990 Acct:[id number] Age/Sex: 35 / F ADM Date: 08/05/25 Loc: [facility] 250-[address]: Le Buckner D.O. Ordering Physician: Le Buckner D.O. Date of Service: 08/05/25 Procedure(s): US OB BPP w non-stress Accession Number(s): [id number] cc: Robles Charles D.O.; Le Buckner D.O. The [address] [address] Patient Name: PHILLIP HERNANDEZ MRN: [id number] date: 1990 Sex: F Assigned Patient Location: [facility] Current Patient Location: [facility] Accession/Order Number: [id number] Exam Date: 08/05/2025 08:35 Report Date: 08/05/2025 09:03 At the request of: LE BUCKNER DO Procedure: US OB BPP w non-stress Biophysical profile. Reason for exam: History of miscarriage. COMPARISON: 07/29/2025 TECHNIQUE: Transabdominal imaging of the gravid uterus was obtained. FINDINGS: The offset plate preparation supervisor reports a BPP of 8 out of 8. MARTY is normal at 12.6 cm. heart rate 132 bpm. US/US OB BPP w non-stress IMPRESSION: BPP 8 out of 8. Impression dictated by: Justin Mack Jr., D.O. 08/05/2025 9:03 AM Dictation Location: [place] [address] Electronically authenticated by: [id number] Y Date: 08/05/2025 09:03 Dictated By: Justin Mack M.D. Signed By: 08/05/25904 DD/ 2 TD/TT: Flue Tile Press Operator: Procedure Note Radiology, Radiologist, MD - 08/05/2025 [place] [address] Ultrasound Report Signed Patient: PHILLIP HERNANDEZ R#: [id number] : 1990Acct:[id number] Age/Sex: 35 / FADM Date: 08/05/25 Loc: [facility] 250- Attending Dr: Le Buckner D.O. Ordering Physician: Le Buckner D.O. Date of Service: 08/05/25 Procedure(s): US OB BPP w non-stress Accession Number(s): [id number] cc: Robles Charles D.O.; Le Buckner D.O. The [place] [address] Patient Name: PHILLIP HERNANDEZ MRN: [id number] date: 1990 Sex: F Assigned Patient Location: [facility] Current Patient Location: [facility] Accession/Order Number: [id number] Exam Date: 08/05/2025 08:35 Report Date: 08/05/2025 09:03 At the request of: LE BUCKNER DO Procedure: US OB BPP w non-stress Biophysical profile. Reason for exam: History of miscarriage. COMPARISON: 07/29/2025 TECHNIQUE: Transabdominal imaging of the gravid uterus was obtained. FINDINGS: The offset plate preparation supervisor reports a BPP of 8 out of 8. MARTY is normal at12.6 cm. heart rate 132 bpm. US/US OB BPP w non-stress IMPRESSION: BPP 8 out of 8. Impression dictated by: Justin Mack Jr., D.O. 08/05/2025 9:03 AM Dictation Location: [employer] | 3pay-18 Electronically authenticated by: [id number] Y Date: 9:03 Dictated By: Justin Mack M.D. Signed By:08/05/25904 DD/ 2 TD/TT: Flue Tile Press Operator: [facility] Final Result documented in this encounter Visit Diagnoses Not on filedocumented in this encounter Care Teams Client Care Consultant Relationship Specialty Start Date End Date Robles Charles DO [address] [facility] [place] [phone] PCP - General Internal Medicine 07/30/23 Deisy Haji PA [address] [place] [address] [place] [address] PCP - Medical [place] [employer] 11/30/23 11/29/99 documented as of this encounter"
--- OUTSIDE RECORDS SUMMARY | 2025-08-11 10:01 | XMS_ITS | Encounter Summary ---
Author Organization [facility] Address [address] [place] [address] Care Team Providers Care Dining Car Hop Name Role Phone Melvin Robles Jerome DO Primary Care Provider [phone] Deisy Haji Unavailable Encounter Details Date Type Department Care Team (Late st Contact Info) Description 08/03/2025 Bamboo flowsheet [facility] Natasha OBROSA ISELA [address] [facility] [place] [address] Ángel Buckner DO [address] [facility] [address] Arash [place], [facility] Social History Tobacco Use Types Packs/Day [...] 8:30 AM EDT Office Visit [facility] Natasha [place] [address] [facility] [phone] Ángel Buckner DO [address] [place], [place] [phone] documented as of this encounter Visit Diagnoses Not on filedocumented in this encounter Care Teams Dining Car Hop Relationship Specialty Start Date End Date Robles Charles DO [address] [facility] [place] [phone] PCP - General Internal Medicine 07/30/23 Deisy Haji PA [address] [place], [place] [id number] PCP - Medical [place] [employer] 11/30/23 11/29/99 documented as of this encounter
--- OUTSIDE RECORDS SUMMARY | 2025-08-11 10:01 | XMS_ITS | Encounter Summary ---
Author Organization [facility] Address [address] [place] [address] Care Team Providers Care Telephone Clerk Telegraph Office Name Role Phone MelvinRobles Justus CRESPO Primary Care Provider [phone] Deisy Haji Unavailable Encounter Details Date Type Department Care Team (Late Contact Info) Description 02/02/2025 Abstract [facility] Natasha [place] [address] [facility] [place] [address] Ángel Buckner DO [address] [facility] [address] Arash [place]aur, [facility] Social History Tobacco Use Types Packs/Day Years [...] EDT Office Visit [facility] Natasha [place] [address] [facility] [place] [phone] Ángel Buckner DO [address] [facility] [address] [place], [place] [phone] documented as of this encounter Visit Diagnoses Not on filedocumented in this encounter Care Teams Telephone Clerk Telegraph Office Relationship Specialty Start Date End Date Robles Charles DO [address] [place] [phone] PCP - General Internal Medicine 07/30/23 Deisy Haji PA [address] [facility] [address] [place], [place] [phone] PCP - Medical [place] [employer] 11/30/23 11/29/99 documented as of this encounter
--- OUTSIDE RECORDS SUMMARY | 2025-08-11 10:01 | XMS_ITS | Clinical Summary ---
Author Organization [facility] Address [address] [place] [address] Care Team Providers Care Ap Processor Name Role Phone MelvinRobles Justus CRESPO Primary Care Provider [phone] Deisy Haji Unavailable Allergies Active Allergy Reactions [...] Encounters Date Type Department Care Team Description 08/08/2025 Clinisync Result Encounter NOMS External Department Unsolicited Le Buckner DO 08/07/2025 3:00 PM EDT Routine [facility] Natasha OBGYManuel [address] [place] [address] [place] [address] Le Buckner DO Third trimester ([facility]); 39 weeks gestation of ([facility]) 08/07/2025 Clinisync Result Encounter NOMS External Department Unsolicited Le Buckner, DO 08/07/2025 Bamboo flowsheet [facility] Natasha Dean [facility] [place] [address] Le Buckner, DO 08/05/2025 Clinisync Result Encounter NOMS External Department Unsolicited Le Buckner, DO 08/03/2025 9:10 AM EDT Routine [facility] Natasha FR[place]GY[place]uel [place] [address] Le Buckner, DO Third trimester ([facility]); 39 weeks gestation of ([facility]) 08/03/2025 Bamboo flowsheet [facility] [place] [address] Le Buckner, DO 07/29/2025 Clinisync Result Encounter NOMS External Department Unsolicited Le Buckner, DO 07/24/2025 11:20 AM EDT Routine [facility] Natasha Dean [facility] [address] Le Buckner, DO Third trimester ([facility]); 37 weeks gestation of ([facility]) 07/24/2025 Bamboo flowsheet [facility] Natasha Dean [facility] [address] Le Buckner, DO 07/22/2025 Clinisync Result Encounter NOMS External Department Unsolicited Le Buckner, DO 07/17/2025 2:50 PM [place] [address] Le Buckner, DO 36 weeks gestation of ([facility]); Third trimester ([facility]); History of miscarriage; Multigravida of advanced maternal age in third trimester ([facility]); Excessive growth affecting management of in third trimester, single or unspecified fetus ([facility]) 07/17/2025 [place] [address] Le Buckner, DO 07/15/2025 Clinisync Result Encounter NOMS External Department Unsolicited Le Buckner, DO 07/10/2025 1:50 PM [place] [address] Le Buckner, DO Third trimester ([facility]); 35 weeks gestation of ([facility]) 07/10/2025 [place] [address] Le Buckner, DO 07/08/2025 Clinisync Result Encounter NOMS External Department Unsolicited Le Buckner, DO 07/01/2025 Clinisync Result Encounter NOMS External Department Unsolicited Le Buckner, DO 06/26/2025 1:10 PM [place] [address] Le Buckner, Third trimester ([facility]); 33 weeks gestation of ([facility]) 06/26/2025 11:30 AM EDT Ancillary [place] [address] Excessive growth affecting management of in third trimester, single or unspecified fetus ([facility]) 06/24/2025 Clinisync Result Encounter NOMS External Department Unsolicited Le Buckner, DO 06/17/2025 Clinisync Result Encounter NOMS External Department Unsolicited Le Buckner, DO 06/12/2025 2:10 PM [place] [address] Le Buckner, Excessive growth affecting management of in third trimester, single or unspecified fetus ([facility]) (Primary Dx); 31 weeks gestation of ([facility]); Third trimester ([facility]); History of miscarriage; Multigravida of advanced maternal age in third trimester ([facility]) 06/12/2025 Bamboo flowsheet [facility] [place] [address] Le Buckner, DO 06/10/2025 Clinisync Result Encounter NOMS External Department Unsolicited Le Buckner, DO 06/03/2025 Clinisync Result Encounter NOMS External Department Unsolicited Le Buckner, DO 05/30/2025 8:50 AM [place] [address] Le Buckner, Third trimester ([facility]); 29 weeks gestation of ([facility]); History of miscarriage; Multigravida of advanced maternal age in third trimester ([facility]) 05/30/2025 Bamboo flowsheet NOMS Natasha CARRAS[place]O [address] [place] [address] [place] [address] Le Buckner, DO 05/11/2025 Clinisync Result Encounter NOMS External Department Unsolicited Jayda Dewitt NP from Last 3 Months Family History Medical [...] (232 lb) 08/07/2025 3:33 PM EDT Height 170.2 cm (5' 7 ) 01/06/2024 2:20 PM EST Body Mass Index 36.34 01/06/2024 2:20 PM EST Plan of Treatment Upcoming Encounters Date Type Department Care Team (Late st Contact Info) Description 09/19/2025 8:30 AM EDT Office Visit [facility] Natasha OBGYN [address] [place] [phone] Le Buckner DO [address] [facility] [address] [place] [address] Health Maintenance Due Date Last Done Comments Influenza Vaccine (#1) 2025 09/15/2023 Pap Smear 03/02/2028 03/02/2025, 09/13/2024, 05/31 Cervical Cancer Screening 09/13/2029 HPV/Cotest 09/13/2029 Procedures Procedure Name Priority Date/Time Associated Diagnosis Comments ALL CBC WITH AUTO DIFF Routine 6:39 AM EDT [facility] URINE MICROSCOPIC ONLY Routine 08/07/2025 9:10 PM EDT [facility] DRUG SCREEN RAPID (URINE) Routine 08/07/2025 9:10 PM EDT ALL CBC WITH AUTO DIFF Routine 9:10 PM EDT [facility] UA (CLEAN/CATCH) LINEN TECH/MICRO IF IND. Routine 08/07/2025 9:10 PM EDT POCT URINALYSIS DIPSTICK Routine 08/07/2025 3:41 PM EDT Third trimester ([facility]) US OB BPP W NON-STRESS 08/05/2025 9:03 AM EDT POCT URINALYSIS DIPSTICK Routine 08/03/2025 9:37 AM EDT Third trimester ([facility]) 39 weeks gestation of ([facility]) US OB BPP W NON-STRESS 07/29/2025 11:10 AM EDT POCT URINALYSIS DIPSTICK Routine 07/24/2025 11:38 AM EDT Third trimester ([facility]) US OB BPP W NON-STRESS 07/22/2025 5:02 PM EDT POCT URINALYSIS DIPSTICK Routine 07/17/2025 3:05 PM EDT 36 weeks gestation of ([facility]) Third trimester ([facility]) US OB BPP W NON-STRESS 07/15/2025 9:18 AM EDT POCT URINALYSIS DIPSTICK Routine 07/10/2025 2:03 PM EDT 35 weeks gestation of ([facility]) CULTURE, GROUP B STREP WITH SUSCEPTIBLITY Routine 07/10/2025 1:45 PM EDT Third trimester ([facility]) US OB BPP W NON-STRESS 07/08/2025 9:19 AM EDT US OB BPP W NON-STRESS 07/01/2025 8:07 PM EDT POCT URINALYSIS DIPSTICK Routine 06/26/2025 1:26 PM EDT Third trimester ([facility]) 33 weeks gestation of ([facility]) US OB FOLLOW UP TRANSABDOMINAL APPROACH Routine 06/26/2025 11:22 AM EDT Excessive growth affecting management of in third trimester, single or unspecified fetus ([facility]) US OB BPP W NON-STRESS 06/24/2025 9:34 AM EDT US OB BPP W NON-STRESS 06/17/2025 9:20 AM EDT US OB BPP W NON-STRESS 06/10/2025 6:38 PM EDT US OB BPP W NON-STRESS 06/03/2025 2:23 PM EDT POCT URINALYSIS DIPSTICK Routine 05/30/2025 9:17 AM EDT Third trimester ([facility]) 29 weeks gestation of ([facility]) US OB GROWTH 05/11/2025 2:40 PM EDT PAP SMEAR Routine 03/02/2025 12:00 AM EDT from Last 3 Months or Most Recently Relevant to Health Maintenance Results * (ABNORMAL) ALL CBC WITH AUTO DIFF (08/08/2025 6:39 AM EDT) Only the most recent of2 resultswithin the time period is included. [facility] WBC 14.5(H) 4.0 - 11.0 10 3/uL TBH TBH RBC 3.44(L) 4.20 - 5.40 10 6/uL TBH TBH HGB 11.2(L) 12.0 - 16.0 g/dL TBH TBH HCT 32.6(L) 36.0 - 48.0 % TBH TBH MCV 94.8 81.0 - 99.0 fL TBH TBH MCH 32.6 26.7 - 34.0 pg TBH TBH MCHC 34.4 29.9 - 35.2 g/dL TBH TBH RDW 13.6 11.0 - 15.0 % TBH TBH PLT 312 150 - 450 10 3/uL TBH TBH MPV 9.6 9.5 - 13.5 fL TBH NEUTROPHILS PERCENT AUTO 79.9(H) 43.0 - 75.0 % TBH LYMPHOCYTES PERCENT AUTO 10.6(L) 20.5 - 60.0 % TBH MONOCYTES PERCENT AUTO 8.1 1.7 - 12.0 % TBH TBH EO % 0.4(L) 0.9 - 7.0 % TBH BASOPHILS PERCENT AUTO 0.2 0.2 - 2.0 % TBH IMMATURE GRANULOCYTES PCT AUTO 0.8(H) 0.0 - 0.5 % TBH NEUTROPHILS ABSOLUTE AUTO 11.6(H) 1.4 - 6.5 10 3/uL TBH LYMPHOCYTES ABSOLUTE AUTO 1.5 1.2 - 3.8 10 3/uL TBH MONOCYTES ABSOLUTE AUTO 1.2(H) 0.3 - 0.8 10 3/uL TBH TBH EO # 0.1 0.0 - 0.7 10 3/uL TBH BASOPHILS ABSOLUTE AUTO 0.0 0.0 - 0.1 10 3/uL TBH IMMATURE GRANULOCYTES ABS AUTO 0.11(H) 0.00 - 0.03 10 3/uL [facility]H 08/08/2025 6:39 AM EDT 08/08/2025 6:43 AM EDT Narrative CLINISYNC - 08/08/2025 7:04 AM EDT Le Sita DO CLINISYNC Final Result [facility]IN[facility]NC TB * (ABNORMAL) [facility] URINE MICROSCOPIC ONLY (08/07/2025 9:10 PM EDT) TBH WBC 5-10(A) NONE SEEN #/HPF TBH TBH RBC 2-5(A) 0 - 2 #/HPF TBH BACTERIA URINE MODERATE(A ) NONE SEEN #/HPF TBH MUCUS URINE NONE SEEN NONE SEEN TBH SQUAMOUS EPITHELIAL CELL URINE MODERATE(A ) NONE/RARE #/LPF TBH CRYSTALS SEEN? None Seen None Seen #/HPF TBH CAST SEEN? NONE SEEN NONE SEEN #/LPF TBH URINE CULTURE INDICATED YES-LC TBH 08/07/2025 9:10 PM EDT 08/07/2025 9:19 PM EDT Narrative CLINISYNC - 08/07/2025 9:46 PM EDT us Le Sita DO CLINISYNC Final Result Performing Organization Address [facility]/ZIP Co de Phone Number CLINISYNC TBH * (ABNORMAL) TBH UA (CLEAN/CATCH) LINEN TECH/MICRO IF IND. (08/07/2025 9:10 PM EDT) COLOR URINE LT. YELLOW YELLOW TBH CLARITY URINE CLEAR CLEAR TBH SPECIFIC GRAVITY URINE <=1.005(A) 1.005 - 1.025 TBH PH URINE 6.5 5.0 - 9.0 TBH PROTEIN URINE NEGATIVE NEG/TRACE mg/dL TBH GLUCOSE URINE UA NEGATIVE NEGATIVE mg/dL TBH BILIRUBIN URINE NEGATIVE NEGATIVE TBH KETONES URINE 15(A) NEGATIVE mg/dL TBH BLOOD URINE MODERATE(A) NEGATIVE TBH NITRITE URINE NEGATIVE NEGATIVE TBH UROBILINOGEN URINE 0.2 0.2 - 1.0 EU/dL TBH LEUKOCYTE ESTERASE URINE SMALL(A) NEGATIVE TBH URINE MICROSCOPIC INDICATED YES TBH 08/07/2025 9:10 PM EDT 08/07/2025 9:19 PM EDT Narrative CLINISYNC - 08/07/2025 9:46 PM EDT us Le Sita DO CLINISYNC Final Result Performing Organization Address [facility]/ZIP Co de Phone Number CLINISYNC TBH * TBH DRUG SCREEN RAPID (URINE) (08/07/2025 9:10 PM EDT) CANNABINOID SCREEN URINE NEGATIVE NEGATIVE TBH PHENCYCLIDINE SCREEN URINE NEGATIVE NEGATIVE TBH COCAINE SCREEN URINE NEGATIVE NEGATIVE TBH METHAMPHETAMINES SCREEN URINE NEGATIVE NEGATIVE TBH OPIATE SCREEN URINE NEGATIVE NEGATIVE TBH AMPHETAMINE SCREEN URINE NEGATIVE NEGATIVE TBH BENZODIAZEPINES SCREEN URINE NEGATIVE NEGATIVE TBH TRICYCLIC ANTIDEPRESSANT URINE NEGATIVE NEGATIVE TBH METHADONE SCREEN URINE NEGATIVE NEGATIVE TBH BARBITURATES SCREEN URINE NEGATIVE NEGATIVE TBH OXYCODONE SCREEN URINE NEGATIVE NEGATIVE TBH BUPRENORPHINE SCREEN URINE NEGATIVE NEGATIVE TBH Comment: DRUG CLASS TEST SYSTEM CUT-OFF CONCENTRATIONS ARE FOLLOWS: AMP (Amphetamine): 500 ng/mL BAR (Barbiturates): 200 ng/mL BZO (Benzodiazepines): 150 ng/mL BUP (Buprenorphine): 10 ng/mL HELENA (Cocaine): 150 ng/mL mAMP (Methamphetamine): 500 ng/mL MTD (Methadone): 200 ng/mL OPI (Opiates): 100 ng/mL OXY (Oxycodone): 100 ng/mL PCP (Phencyclidine): 25 ng/mL THC (Cannabinoids): 50 ng/mL TCA (Trycyclic Antidepressants): 300 ng/mL 08/07/2025 9:10 PM EDT 08/07/2025 9:22 PM EDT Narrative CLINISYNC - 08/07/2025 9:42 PM EDT El Sita DO CLINISYNC Final Result [facility] * (ABNORMAL) POCT urinalysis dipstick manually resulted (08/07/2025 3:41 PM EDT) Only the most recent of7 resultswithin the time period is included. Color, [...] - Positive Urine 08/07/2025 3:41 PM EDT [employer] [facility] Le Sita DO POINT OF CARE TEST ENTER/EDIT OR DERABLES Final Result * US OB BPP W NON-STRESS (08/05/2025 9:03 AM EDT) Only the most recent of10 resultswithin the time period is included. Anatomical Region Laterality Modality Other 08/05/2025 9:03 AM EDT Narrative 08/05/2025 9:05 [place] [address] Ultrasound Report Signed Patient: PHILLIP REYES MR#: [id number] : 1990 Acct:[id number] Age/Sex: 35 / F ADM Date: 08/05/25 Loc: [facility] 250-[address]: Le Buckner D.O. Ordering Physician: Le Buckner D.O. Date of Service: 08/05/25 Procedure(s): US OB BPP w non-stress Accession Number(s): [id number] cc: Robles Charles D.O.; Le Buckner D.O. [place] [address] Patient Name: PHILLIP REYES MRN: [facility]:[id number] date: 1990 Sex: F Assigned Patient Location: [facility] Current Patient Location: [facility] Accession/Order Number: [id number] Exam Date: 08/05/2025 08:35 Report Date: 08/05/2025 09:03 At the request of: LE BUCKNER DO Procedure: US OB BPP w non-stress Biophysical profile. Reason for exam: History of miscarriage. COMPARISON: 07/29/2025 TECHNIQUE: Transabdominal imaging of the gravid uterus was obtained. FINDINGS: The blowing engineer reports a BPP of 8 out of 8. MRATY is normal at 12.6 cm. heart rate 132 bpm. US/US OB BPP w non-stress IMPRESSION: BPP 8 out of 8. Impression dictated by: Zully Jaramillo Jr.OCuauhtemoc 08/05/2025 9:03 AM Dictation Location: [id number] Electronically authenticated by: [id number] Y Date: 08/05/2025 09:03 Dictated By: Justin Mack M.D. Signed By: 08/05/25904 DD/ 2 TD/TT: Vice President Tax: Procedure Note Radiology, Radiologist, - 08/05/2025 [place] [address] Ultrasound Report Signed Patient: PHILLIP REYES LMR#: [id number] : 1990Acct:[id number] Age/Sex: 35 / FADM Date: 08/05/25 Loc: [place] [address]-[address]: Le Buckner D.O. Ordering Physician: Le Buckner D.O. Date of Service: 08/05/25 Procedure(s): US OB BPP w non-stress Accession Number(s): [id number] cc: Robles Charles D.O.; Le Buckner D.O. The [place] [address] Patient Name: PHILLIP REYES MRN: [facility]:[id number] date: 1990 Sex: F Assigned Patient Location: [facility] Current Patient Location: [facility] Accession/Order Number: [id number] Exam Date: 08/05/2025 08:35 Report Date: 08/05/2025 09:03 At the request of: LE BUCKNER DO Procedure: US OB BPP w non-stress Biophysical profile. Reason for exam: History of miscarriage. COMPARISON: 07/29/2025 TECHNIQUE: Transabdominal imaging of the gravid uterus was obtained. FINDINGS: The blowing engineer reports a BPP of 8 out of 8. MARTY is normal at12.6 cm. heart rate 132 bpm. US/US OB BPP w non-stress IMPRESSION: BPP 8 out of 8. Impression dictated by: Zully Jaramillo Jr.OCuauhtemoc 08/05/2025 9:03 AM Dictation Location: [id number] Electronically authenticated by: [id number] Y Date: 509:03 Dictated By: Justin Mack M.D. Signed By:08/05/25904 DD/ 2 TD/TT: Vice President Tax: us Le Sita DO CLINISYNC IMAGING Final [...] II, MD, PHD at 26-Jun-2025 11:42:39 PM [facility] Procedure Note Evelyne Ramsey MD - [...] signed by EVELYNE RAMSEY II, MD, PHD [id number] 11:42:39 PM [facility] us Deisy WOODARD OB US PROCEDURES Final Resul t * US OB GROWTH (05/11/2025 2:40 PM EDT) Anatomical Region Laterality Modality Other 05/11/2025 2:40 PM EDT Narrative 05/11/2025 2:42 PM EDT The [address] [address] Ultrasound Report Signed Patient: PHILLIP REYES MR#: [id number] : 1990 Acct:[id number] Age/Sex: 35 / F ADM Date: 05/11/25 Loc: US Attending Dr: Jayda Dewitt Ordering Physician: Jayda Dewitt Date of Service: 05/11/25 Procedure(s): US OB growth Accession Number(s): [id number] cc: Robles Charles D.O.; Jayda Dewitt The [place] [address] Patient Name: PHILLIP REYES MRN: [facility]:[id number] date: 1990 Sex: F Assigned Patient Location: US Current Patient Location: US Accession/Order Number: [id number] Exam Date: 05/11/2025 14:38 Report Date: 05/11/2025 [...] Jr., D.O. 05/11/2025 2:40 PM Dictation Location: [place] [address] Electronically authenticated by: [id number] Y Date: 05/11/2025 14:40 Dictated By: Justin Mack M.D. Signed By: 05/11/25 1442 DD/ 1440 TD/TT: Vice President Tax: Procedure Note Radiology, Radiologist, MD - 05/11/2025 [place] [address] Ultrasound Report Signed Patient: PHILLIP REYES LMR#: [id number] : 1990Acct:[id number] Age/Sex: 35 / FADM Date: 05/11/25 Loc: US Attending Dr: Jayda Dewitt Ordering Physician: Jayda Dewitt Date of Service: 05/11/25 Procedure(s): US OB growth Accession Number(s): [id number] cc: Robles Charles D.O.; Jayda Dewitt [place] [address] Patient Name: PHILLIP REYES MRN: [facility]:[id number] date: 1990 Sex: F Assigned Patient Location: US Current Patient Location: US Accession/Order Number: [id number] Exam Date: 05/11/2025 14:38 Report Date: 05/11/2025 14:40 At the request of: JAYDA DEWITT Procedure: US OB growth Growth ultrasound. Reason for exam: size. COMPARISON: Ultrasound 03/20/2025. TECHNIQUE: Transabdominal imaging of the gravid uterus was obtained. FINDINGS: Single live intrauterine 28 weeks 1 day by anatomic measurements. Appropriate growth by dating. Estimated weight [id number] g which is the 80th percentile. heart rate 1 54 bpm. positionis cephalic at time of scanning. MARTY is normal at 13.5 cm. US/US OB growth IMPRESSION: Single live intrauterine 28 weeks 1 day by anatomic measurements. Appropriate growth. Impression dictated by: Justin Mack Jr., D.O. 05/11/2025 2:40 PM Dictation Location: [place] [address] Electronically authenticated by: [id number] Y Date: 4:40 Dictated By: Justin Mack M.D. Signed By:05/11/25 1442 DD/ 1440 TD/TT: Vice President Tax: us Jayda Dewitt STRAIGHT PIN MAKING MACHINE OPERATOR [facility] IMAGING Final Resul t * Pap Smear (03/02/2025 12:00 AM EDT) Swab Cervical swab / Unknown Sita Nurse [facility] Ob LAB CYTOLOGY ORDERABLES Final Result EXTERNAL LAB from Last 3 Months or Most Recently Relevant to Health Maintenance Insurance [employer] Care Teams Ap Processor Relationship Specialty Start Date End Date Robles Charles DO [address] [facility] [place] [address] PCP - General Internal Medicine 07/30/23 Deisy Haji PA [address] [place] [address] PCP - Medical Portal Commercial 11/30/23 11/29/99
--- OUTSIDE RECORDS SUMMARY | 2025-08-11 10:01 | XMS_ITS | Encounter Summary ---
Author Organization [facility] Address [address] [place] [address] Care Team Providers Care Sales And Customer Relations Rep Name Role Phone MelvinRobles Justus CRESPO Primary Care Provider [phone] Deisy Haji Unavailable Encounter Details Date Type Department Care Team (Late st Contact Info) Description 07/29/2025 Clinisync Result Encounter NOMS External Department Unsolicited Le Buckner DO [address] [place] [address] Social History Tobacco Use Types [...] EDT Office Visit [facility] O[facility] [address] [place] [address] Le Buckner DO [address] [place] [address] documented as of this encounter Procedures Procedure Name Priority Date/Time Associated Diagnosis Comments US OB BPP W NON-STRESS 07/29/2025 11:10 AM EDT documented in this encounter Results * US OB BPP W NON-STRESS (07/29/2025 11:10 AM EDT) Anatomical Region Laterality Modality Other 07/29/2025 11:1 0 AM EDT Narrative 07/29/2025 11:12 AM EDT [address] [address] Ultrasound Report Signed Patient: PHILLIP HERNANDEZ MR#: [id number] : 1990 Acct:[id number] Age/Sex: 35 / F ADM Date: 07/29/25 Loc: US Attending Dr: Le Buckner D.O. Ordering Physician: Le Buckner D.O. Date of Service: 07/29/25 Procedure(s): US OB BPP w non-stress Accession Number(s): [id number] cc: Robles Charles D.O.; Le Buckner D.O. The [address] [address] Patient Name: PHILLIP HERNANDEZ MRN: [facility]:[id number] date: 1990 Sex: F Assigned Patient Location: [facility] Current Patient Location: Accession/Order Number: [id number] Exam Date: 07/29/2025 08:02 Report Date: 07/29/2025 11:10 At the request of: LE BUCKNER DO [...] Yusuf M.D. 07/29/2025 11:10 AM Dictation Location: [place] [address] Electronically authenticated by: [id number] Y Date: 07/29/2025 11:10 Dictated By: Roddy Yusuf M.D. Signed By: 07/29/25 1112 DD/ 1110 TD/TT: Promotions Associate: Procedure Note Radiology, Radiologist, MD - 07/29/2025 [place] [address] Ultrasound Report Signed Patient: PHILLIP HERNANDEZ R#: [id number] : 1990Acct:[id number] Age/Sex: 35 / FADM Date: 07/29/25 Loc: US Attending Dr: Le Buckner D.O. Ordering Physician: Le Buckner D.O. Date of Service: 07/29/25 Procedure(s): US OB BPP w non-stress Accession Number(s): [id number] cc: Robles Charles D.O.; Le Buckner D.O. The [address] [address] Patient Name: PHILLIP HERNANDEZ MRN: [id number] date: 1990 Sex: F Assigned Patient Location: [facility] Current Patient Location: Accession/Order Number: [id number] Exam Date: 07/29/2025 08:02 Report Date: 07/29/2025 11:10 At the request of: LE BUCKNER DO Procedure: US OB BPP w non-stress US OB BPP w non-stress 07/29/2025 8:43 AM SIGNS AND SYMPTOMS: ADVANCED MATERNAL AGE O09.523 PROTOCOL: Transabdominal sonographic imaging of the gravid uterus COMPARISON: None FINDINGS: heart rate: 173 bpm Amniotic fluid index: 14.55 cm. The deeper vertical pocket measures 4.61cm. Estimated gestational age: 38 weeks and 3 days Biophysical profile: breathing movements: 2/2 Gross body movements: 2/2 tone: 2/2 Amniotic fluid volume: 2/2 US/US OB BPP w non-stress IMPRESSION: Biophysical profile: 07/07 Impression dictated by: Roddy Yusuf M.D. 07/29/2025 11:10 AM Dictation Location: [employer] Electronically authenticated by: [id number] Y Date: 1:10 Dictated By: Roddy Yusuf M.D. Signed By:07/29/25 1112 DD/ 1110 TD/TT: Promotions Associate: [facility] Final Result documented in this encounter Visit Diagnoses Not on filedocumented in this encounter Care Teams Sales And Customer Relations Rep Relationship Specialty Start Date End Date Robles Charles DO [address] [facility] [place] [address] PCP - General Internal Medicine 07/30/23 Deisy Haji PA [address] [place] [address] [place] [address] PCP - Medical [place] Commercial 11/30/23 11/29/99 documented as of this encounter
--- OUTSIDE RECORDS SUMMARY | 2025-08-11 10:01 | XMS_ITS | Encounter Summary ---
Author Organization [facility] Address [address] [place] [address] Care Team Providers Care Rod Mill Tender Name Role Phone MelvinRobles Primary Care Provider [phone] Deisy Haji Unavailable Encounter Details Date Type Department Care Team (Late Contact Info) Description 08/06/2023 Clinisync Result Encounter [facility] External Department Unsolicited Le Buckner DO [address] [place] [address] Social History Tobacco Use Types Packs/Day [...] AM EDT Office Visit NOMSheree [place] OBGYManuel [address] [place] [address] Le Buckner DO [address] [place] [address] [phone] (work) documented as of this encounter Procedures Procedure Name Priority Date/Time Associated Diagnosis Comments US OB TRANSVAGINAL 08/06/2023 4: 44 PM EDT documented in this encounter Results * US OB TRANSVAGINAL (08/06/2023 4:44 PM EDT) Anatomical Region Laterality Modality Other 08/06/2023 4:44 PM EDT Narrative 08/06/2023 4:44 [place] [address] Ultrasound Report Signed Patient: Phillip Hernandez MR#: [id number] : 1990 Acct:[id number] Age/Sex: 33 / F ADM Date: 08/06/23 Loc: US Attending Dr: Le Buckner D.O. Ordering Physician: Le Buckner D.O. Date of Service: 08/06/23 Procedure(s): US OB transvaginal Accession Number(s): [id number] cc: Le Buckner D.O.; Physician,Non-Staff MJennifer [address] [address] Patient Name: PHILLIP HERNANDEZ MRN: [id number] date: 1990 Sex: F Assigned Patient Location: US Current Patient Location: US Accession/Order Number: [id number] Exam Date: 08/06/2023 09:32 Report Date: 08/06/2023 [...] M.D. Signed By: 08/06/231646 DD/ 43 TD/TT: Stock And Station Agent: Procedure Note Radiology, Radiologist, - 08/21/2023 [place] [address] Ultrasound Report Signed Patient: Phillip Hernandez LMR#: [id number] : 1990Acct:[id number] Age/Sex: 33 / FADM Date: 08/06/23 Loc: US Attending Dr: Le Buckner D.O. Ordering Physician: Le Buckner D.O. Date of Service: 08/06/23 Procedure(s): US OB transvaginal Accession Number(s): [id number] cc: Le Buckner D.O.; Physician,Non-Staff Lauri [address] [place] [id number] Patient Name: PHILLIP HERNANDEZ MRN: [id number] date: 1990 Sex: F Assigned Patient Location: US Current Patient Location: US Accession/Order Number: [id number] Exam Date: 08/06/2023 09:32 Report Date: 08/06/2023 [...] 16:44 Dictated By: Nava Yeung M.D. Signed By:08/06/23 1647 DD/ 1644 TD/TT: Stock And Station Agent: Le Buckner DO [facility] Final Result documented in this encounter Visit Diagnoses Not on filedocumented in this encounter Care Teams Rod Mill Tender Relationship Specialty Start Date End Date Robles Charles DO [address] [facility] [place] [address] PCP - General Internal Medicine 07/30/23 Deisy Haji PA [address] [facility] [place] [address] PCP - Medical [place] [employer] 11/30/23 11/29/99 documented as of this encounter
--- OUTSIDE RECORDS SUMMARY | 2025-08-11 10:01 | XMS_ITS | Encounter Summary ---
Author Organization [facility] Address [address] [place] [address] Care Team Providers Care American History Teacher Name Role Phone MelvinRobles Primary Care Provider [phone] Deisy Haji Unavailable Encounter Details Date Type Department Care Team (Late st Contact Info) Description 03/09/2025 Orders Only [facility] Silvina CARRASQUILLO [address] [place] [address] Camille Lawrence LPN [address] [place] [id number] Social History Tobacco Use Types Packs/Day Years [...] 09/19/2025 8:30 AM EDT Office Visit [facility] Silvina [facility] [address] [facility] [place] [address] Ángel Buckner DO [address] [place] [address] documented as of this encounter Procedures Procedure Name Priority Date/Time Associated Diagnosis Comments PAP SMEAR Routine 03/02/2025 12:00 AM EDT documented in this encounter Results * Pap Smear (03/02/2025 12:00 AM EDT) Swab Cervical swab / Unknown Sita Nurse [facility] Ob LAB CYTOLOGY ORDERABLES Final Result EXTERNAL LAB documented in this encounter Visit Diagnoses Not on filedocumented in this encounter Care Teams American History Teacher Relationship Specialty Start Date End Date Robles Charles DO [address] [facility] [place] [address] PCP - General Internal Medicine 07/30/23 Deisy Haji PA [address] [facility] [place] [address] PCP - Medical [place] [employer] 11/30/23 11/29/99 documented as of this encounter
--- OUTSIDE RECORDS SUMMARY | 2025-08-11 10:01 | XMS_ITS | Encounter Summary ---
Author Organization [facility] Address [address] [place] [address] Care Team Providers Care Child Life Specialist Name Role Phone MelvinRobles Justus CRESPO Primary Care Provider [phone] Deisy Haji Unavailable Encounter Details Date Type Department Care Team (Late st Contact Info) Description 08/08/2025 Clinisync Result Encounter [facility] External Department Unsolicited Ángel Buckner DO [address] [facility] [place] [address] Social History Tobacco Use Types [...] Description 09/19/2025 8:30 AM EDT Office Visit HERBIE [place] OBGYN [address] [facility] [place] [address] Ángel Buckner DO [address] [facility] [place] [address] documented as of this encounter Procedures Procedure Name Priority Date/Time Associated Diagnosis Comments ALL CBC WITH AUTO DIFF Routine 08/08/2025 6:39 AM EDT documented in this encounter Results * (ABNORMAL) ALL CBC WITH AUTO DIFF (08/08/2025 6:39 AM EDT) TBH WBC 14.5(H) 4.0 - 11.0 10 [...] Narrative [facility] - 08/08/2025 7:04 AM EDT us Ángel Sita DO [facility] Final [facility] documented in this encounter Visit Diagnoses Not on filedocumented in this encounter Care Teams Child Life Specialist Relationship Specialty Start Date End Date Robles Charles DO [address] [facility] [place] [address] PCP - General Internal Medicine 07/30/23 Deisy Haji PA [address] [place] [address] [place] [address] PCP - Medical [place] [employer] 11/30/23 11/29/99 documented as of this encounter
--- OUTSIDE RECORDS SUMMARY | 2025-08-11 10:01 | XMS_ITS | Encounter Summary ---
Author Organization [facility] Address [address] [place] [address] Care Team Providers Care Water Maintenance Supervisor Name Role Phone MelvinRobles Justus CRESPO Primary Care Provider Deisy Haji Unavailable Encounter Details Date Type Department Care Team (Late st Contact Info) Description 08/07/2025 Clinisync Result Encounter [facility] External Department Unsolicited Ángel Buckner DO [address] [facility] [place] [address] Social History Tobacco Use Types [...] EDT Office Visit HERBIE [place] OBGYN [address] [facility] [place] [phone] Ángel Buckner DO [address] [facility] [place] [address] documented as of this encounter Procedures Procedure Name Priority Date/Time Associated Diagnosis Comments TBH URINE MICROSCOPIC ONLY Routine 08/07/2025 9:10 PM EDT TBH UA (CLEAN/CATCH) SHOWROOM SALES ASSISTANT/MICRO IF IND. Routine 08/07/2025 9:10 PM EDT TBH DRUG SCREEN RAPID (URINE) Routine 08/07/2025 9:10 PM EDT ALL CBC WITH AUTO DIFF Routine 08/07/2025 9:10 PM EDT documented in this encounter Results * (ABNORMAL) TBH URINE MICROSCOPIC ONLY (08/07/2025 9:10 PM EDT) TB WBC 5-10(A) NONE SEEN #/HPF TBH TBH [...] Narrative [facility] - 08/07/2025 9:46 PM EDT Ángel Buckner DO [facility] Final Result [facility] * TBH DRUG SCREEN RAPID [...] Narrative [facility] - 08/07/2025 9:42 PM EDT Ángel Lopezo DO [facility] Final Result [facility] * (ABNORMAL) ALL CBC WITH AUTO DIFF (08/07/2025 9:10 PM EDT) TBH WBC 12.5(H) 4.0 - 11.0 10 3/uL TBH TBH RBC 3.79(L) 4.20 - 5.40 10 6/uL TBH TBH HGB 12.4 12.0 - 16.0 g/dL TBH TBH HCT 35.6(L) 36.0 - 48.0 % TBH TBH MCV 93.9 81.0 - 99.0 fL TBH TBH MCH 32.7 26.7 - 34.0 pg TBH TBH MCHC 34.8 29.9 - 35.2 g/dL TBH TBH RDW 13.6 11.0 - 15.0 % TBH TBH PLT 352 150 - 450 10 3/uL TBH TBH MPV 9.4(L) 9.5 - 13.5 fL TBH NEUTROPHILS PERCENT AUTO 75.1(H) 43.0 - 75.0 % TBH LYMPHOCYTES PERCENT AUTO 15.7(L) 20.5 - 60.0 % TBH MONOCYTES PERCENT AUTO 7.4 1.7 - 12.0 % TBH TBH EO % 0.9 0.9 - 7.0 % TBH BASOPHILS PERCENT AUTO 0.2 0.2 - 2.0 % TBH IMMATURE GRANULOCYTES PCT AUTO 0.7(H) 0.0 - 0.5 % TBH NEUTROPHILS ABSOLUTE AUTO 9.4(H) 1.4 - 6.5 10 3/uL TBH LYMPHOCYTES ABSOLUTE AUTO 2.0 1.2 - 3.8 10 3/uL TBH MONOCYTES ABSOLUTE AUTO 0.9(H) 0.3 - 0.8 10 3/uL TBH TBH EO # 0.1 0.0 - 0.7 10 3/uL TBH BASOPHILS ABSOLUTE AUTO 0.0 0.0 - 0.1 10 3/uL TBH IMMATURE GRANULOCYTES ABS AUTO 0.09(H) 0.00 - 0.03 10 3/uL TBH 08/07/2025 9:10 PM EDT 08/07/2025 9:19 PM EDT Narrative [facility] - 08/07/2025 9:25 PM EDT us Ángel Lopezo DO [facility] Final Result [facility] * (ABNORMAL) TBH UA (CLEAN/CATCH) SHOWROOM SALES ASSISTANT/MICRO IF IND. (08/07/2025 9:10 PM EDT) COLOR [...] Narrative [facility] - 08/07/2025 9:46 PM EDT Ángel Sita DO [facility] Final Result [facility] TB documented in this encounter Visit Diagnoses Not on filedocumented in this encounter Care Teams Water Maintenance Supervisor Relationship Specialty Start Date End Date Robles Charles DO [address] [facility] [place] [address] PCP - General Internal Medicine 07/30/23 Deisy Haji PA [address] [place] [address] [place] [address] PCP - Medical [place] [employer] 11/30/23 11/29/99 documented as of this encounter
--- OUTSIDE RECORDS SUMMARY | 2025-08-11 10:10 | XMS_ITS | CCD ---
Author Organization [facility] CliniSywa Care Team Providers Care Vallez Filter Operator Name Role Phone Subha Dillon Unavailable Elsi Mayer Unavailable MD Liz Conteh Primary Care Provider [phone] DO Delano Francis Attending Provider [phone] SITA, DR LUJAN Consulting Unavailable SITA, DR LUJAN Admitting Unavailable REQUEST, DR RAIN LISTED Primary Care Unavaila jt BUCKNER, DR LUJAN Attending Unavailable NELA, DR SEARS Attending Unavailable NELA, DR SEARS Consulting Unavailable NELA, DR SEARS Admitting Unavailable REQUEST, DR RAIN LISTED Primary Care Unavaila Kiya Gonsalves Unavailable MD Derick Timmons Attending Provider [phone] SHANNON Schaffer Attending Provider Robles Charles Unavailable MD Liz Conteh Primary Care Provider [phone] DO Delano Francis Attending Provider [phone] QUANG Villar Attending Provider DO Robles Charles Primary Care Provider Robles Charles MD Primary Care Provider QUANG Villar Attending Provider [phone] DO Robles Charles Primary Care Provider Deisy Pratt Unavailable DO Robles Charles Primary Care Provider Tito - DO Delano MEZA Attending Provider Tito Delano MEZA Admitting Unavailable Tito Delano MEZA Attending Unavailable Robles Charles Primary Care Unavailable Deisy Villar Admitting Unavailable Deisy Villar Attending Unavailable Robles Charles Primary Care Unavailable Robles Charles DO Primary Care Provider [phone] [facility] Delano CRESPO Attending Provider Robles Charles MD [...] (5 sources) Penicillin V Drug Allergy rash [facility] [employer] Other (1 source) Amoxicillin Drug Allergy 0 [facility] Repository (1 source) Penicillins Drug allergy (disorder) [facility] Repository (5 sources) Penicillin Drug Allergy rash [facility] Other (1 source) Substance with penicillin structure and antibacterial mechanism of action (substance) Drug allergy 3 PENICILLINS [facility] [employer] Other (20 sources) Amoxicillin Drug Allergy 3 [facility] (20 sources) Penicillin G Drug Allergy 3 Unknown [facility] (1 source) Penicillins Drug allergy (disorder) 4 [facility] Repository Medications Current Medications Medication [...] 12/22/2024 02/02/2025 Active Pre-Mack (10 sources) Pre-Mack NotTa flakita Pre-Mack Active MV-Min-Fe Fum-FA-DH A ( [...] of ] 07-24-2025 Episodic Residual codes; unclassified (4 sources) Gestation period, 39 weeks; Translations: [39 [...] Test Name Value Interpretation Reference Range Facility ALL CBC WITH AUTO DIFFon BASOPHILS ABSOLUTE AUTO 0 N [facility] Basophils/100 WBC (Bld) 0.2 % 0.2 - 2.0 % [facility] Eosinophils/100 WBC (Bld) 0.4 % Low 0.9 - 7.0 % [facility] Erythrocyte distribution width (RBC) [Ratio] 13.6 % 11.0 - 15.0 % [facility] Hematocrit (Bld) [Volume fraction] 32.6 % Low 36.0 - 48.0 % [facility] Hemoglobin (Bld) [Mass/Vol] 11.2 g/dL Low 12.0 - 16.0 g/dL [facility] IMMATURE GRANULOCYTES ABS AUTO 0.11 High [facility] Immature granulocytes/100 WBC (Bld) 0.8 % High 0.0 - 0.5 % [facility] Interpretation and review of laboratory results Abnormal [facility] LYMPHOCYTES ABSOLUTE AUTO 1.5 [facility] Lymphocytes/100 WBC (Bld) 10.6 % Low 20.5 - 60.0 % [facility] MCH (RBC) [Entitic mass] 32.6 pg 26.7 - 34.0 pg [facility] MCHC (RBC) [Mass/Vol] 34.4 g/dL 29.9 - 35.2 g/dL [facility] MCV (RBC) [Entitic vol] 94.8 fL 81.0 - 99.0 fL [facility] MONOCYTES ABSOLUTE AUTO 1.2 High N [facility] Monocytes/100 WBC (Bld) 8.1 % 1.7 - 12.0 % [facility] NEUTROPHILS ABSOLUTE AUTO 11.6 High [facility] Neutrophils/100 WBC (Bld) 79.9 % High 43.0 - 75.0 % [facility] Platelet mean volume (Bld) [Entitic vol] 9.6 fL 9.5 - 13.5 fL [facility] EO # 0.1 [facility] PLT 312 [facility] RBC 3.44 Low [facility] WBC 14.5 High [facility] UA (CLEAN/CATCH) SOFTWARE ASSET MANAGER/KAYCEE RO IF IND.on 08-07-2025 BILIRUBIN URINE Negative NEGATIVE [facility] BLOOD URINE MODERATE Abnormal NEGATIVE [facility] Clarity (U) CLEAR CLEAR [facility] Color (U) LT. YELLOW YELLOW [facility] GLUCOSE URINE UA Negative NEGATIVE mg/dL [facility] Interpretation and review of laboratory results Abnormal [facility] Ketones Ql (U) 15 mg/dL Abnormal NEGATIVE [facility] Leukocyte esterase Test strip Ql (U) SMALL Abnormal NEGATIVE [facility] NITRITE URINE Negative NEGATIVE [facility] pH (U) 6.5 [pH] 5.0 - 9.0 [facility] PROTEIN URINE Negative NEG/TRACE mg/dL [facility] SPECIFIC GRAVITY URINE <=1.005 Abnormal 1.005 - 1.025 [facility] URINE MICROSCOPIC INDICATED YES [facility] UROBILINOGEN URINE 0.2 EU/dL 0.2 - 1.0 EU/dL [facility] Urinalysis macro (dipstick) panel (U)on 08-07-2025 Bilirubin, UA Negative Negative - 4(70) +++ mg/dL [facility] Blood, UA Positive Negative - 50 Ezequiel/mcL [facility] Clarity, UA Clear [facility] Color, UA Yellow [facility] Glucose, UA Negative Negative - 1999(110) ++++ mg/dL [facility] Interpretation and review of laboratory results Abnormal [facility] Ketones, UA Negative Negative - 160(16) ++++ mg/dL [facility] Leukocytes, UA Negative Negative - 500+++ Jason/mcL [facility] Nitrite, UA Negative Negative - Positive [facility] pH, UA 6 5 - 9 [facility] Protein, UA Negative Negative - 1999(20) ++++ mg/dL [facility] Spec Grav, UA 1.025 1 - 1.03 [facility] Urobilinogen, UA 1.0 0.2 - 12 mg/dL [facility] US OB BPP W NON-STRESS on 08-05-2025 [place] [address] Ultrasound Report Signed Patient: ANGELA REYES MR#: [id number] : 1990 Acct:[id number] Age/Sex: 35 / F ADM Date: 08/05/25 Loc: [facility] 250-[address]: Ángel Buckner D.O. Ordering Physician: Ángel Buckner D.O. Date of Service: 08/05/25 Procedure(s): US OB BPP w non-stress Accession Number(s): [id number] cc: Robles Charles D.O.; Ángel Buckner D.O. [address] [address] Patient Name: ANGELA REYES MRN: [id number]:[id number] date: 1990 Sex: F Assigned Patient Location: [facility] Current Patient Location: [facility] Accession/Order Number: [id number] Exam Date: 08/05/2025 08:35 Report Date: 08/05/2025 09:03 At the request of: ÁNGEL BUCKNER DO Procedure: US OB BPP w non-stress Biophysical profile. Reason for exam: History of miscarriage. COMPARISON: 07/29/2025 TECHNIQUE: Transabdominal imaging of the gravid uterus was obtained. FINDINGS: The associate professor physician reports a BPP of 8 out of 8. MARTY is normal at 12.6 cm. heart rate 132 bpm. US/US OB BPP w non-stress IMPRESSION: BPP 8 out of 8. Impression dictated by: Justin Mack Jr., D.O. 08/05/2025 9:03 AM Dictation Location: [facility] Electronically authenticated by: [id number] Y Date: 08/05/2025 09:03 Dictated By: Justin Mack M.D. Signed By: 08/05/25904 DD/ 2 TD/TT: Typing Pool Supervisor: [facility] Radiology, Radiologbrittanie pa MD - 08/05/2025 [place] [address] Ultrasound Report Signed Patient: ANGELA REYES MR#: [id number] : 1990 Acct:[id number] Age/Sex: 35 / F ADM Date: 08/05/25 Loc: [facility] 250-[address]: Ángel Buckner D.O. Ordering Physician: Ángel Bukcner D.O. Date of Service: 08/05/25 Procedure(s): US OB BPP w non-stress Accession Number(s): [id number] cc: Robles Charles D.O.; Ángel Buckner D.O. The [address] [address] Patient Name: ANGELA REYES MRN: [facility]:[id number] date: 1990 Sex: F Assigned Patient Location: [facility] Current Patient Location: [facility] Accession/Order Number: [id number] Exam Date: 08/05/2025 08:35 Report Date: 08/05/2025 09:03 At the request of: ÁNGEL BUCKNER DO Procedure: US OB BPP w non-stress Biophysical profile. Reason for exam: History of miscarriage. COMPARISON: 07/29/2025 TECHNIQUE: Transabdominal imaging of the gravid uterus was obtained. FINDINGS: The associate professor physician reports a BPP of 8 out of 8. MARTY is normal at 12.6 cm. heart rate 132 bpm. US/US OB BPP w non-stress IMPRESSION: BPP 8 out of 8. Impression dictated by: Justin Mack Jr., D.O. 08/05/2025 9:03 AM Dictation Location: [employer] Electronically authenticated by: [id number] Y Date: 08/05/2025 09:03 Dictated By: Justin Mack M.D. Signed By: 08/05/25904 DD/ 2 TD/TT: Typing Pool Supervisor: [facility] Radiology Study observation (narrative) [facility] US OB BPP W NON-STRESS Ordered By: Radiologist Radiology on 08-05-2025 [facility] Work Phone: Urinalysis macro (dipstick) panel (U)on 08-03-2025 Bilirubin, UA Negative Negative - 4(70) +++ mg/dL [facility] Blood, UA Negative Negative - 50 Ezequiel/mcL [facility] Clarity, UA Clear [facility] Color, UA Yellow [facility] Glucose, UA Negative Negative - 1999(110) ++++ mg/dL [facility] Interpretation and review of laboratory results Abnormal [facility] Ketones, UA Negative Negative - 160(16) ++++ mg/dL [facility] Leukocytes, UA Positive Negative - 500+++ Jason/mcL [facility] Nitrite, UA Negative Negative - Positive [facility] pH, UA 6 5 - 9 [facility] Protein, UA Negative Negative - 2000(20) ++++ mg/dL [facility] Spec Grav, UA 1.015 1 - 1.03 [facility] Urobilinogen, UA 1.0 0.2 - 12 mg/dL [facility] US OB BPP W NON-STRESS on 07-29-[address] [address] Ultrasound Report Signed Patient: ANGELA REYES MR#: [id number] : 1990 Acct:[id number] Age/Sex: 35 / F ADM Date: 07/29/25 Loc: US Attending Dr: Ángel Buckner D.O. Ordering Physician: Ángel Buckner D.O. Date of Service: 07/29/25 Procedure(s): US OB BPP w non-stress Accession Number(s): [id number] cc: Robles Charles D.O.; Ángel Buckner D.O. [place] [address] Patient Name: ANGELA REYES MRN: [id number]:[id number] date: 1990 Sex: F Assigned Patient Location: [facility] Current Patient Location: Accession/Order Number: [id number] Exam Date: 07/29/2025 08:02 Report Date: 07/29/2025 [...] Yusuf M.D. 07/29/2025 11:10 AM Dictation Location: [place] [address] Electronically authenticated by: [id number] Y Date: 07/29/2025 11:10 Dictated By: Roddy Yusuf M.D. Signed By: 07/29/25 1112 DD/ 1110 TD/TT: Typing Pool Supervisor: [facility] RadiologyNeelimaogbrittanie pa MD - 07/29/2025 [place] [address] Ultrasound Report Signed Patient: ANGELA REYES MR#: [id number] : 1990 Acct:[id number] Age/Sex: 35 / F ADM Date: 07/29/25 Loc: US Attending Dr: Ángel Buckner D.O. Ordering Physician: Ángel Buckner D.O. Date of Service: 07/29/25 Procedure(s): US OB BPP w non-stress Accession Number(s): [id number] cc: Robles Charles D.O.; Ángel Buckner D.O. [place] [address] Patient Name: ANGELA REYES MRN: [facility]:[id number] date: 1990 Sex: F Assigned Patient Location: [facility] Current Patient Location: Accession/Order Number: [id number] Exam Date: 07/29/2025 08:02 Report Date: 07/29/2025 [...] Yusuf M.D. 07/29/2025 11:10 AM Dictation Location: [place] [address] Electronically authenticated by: [id number] Y Date: 07/29/2025 11:10 Dictated By: Roddy Yusuf M.D. Signed By: 07/29/25 1112 DD/ 1110 TD/TT: Typing Pool Supervisor: [facility] Radiology Study observation (narrative) [facility] US OB BPP W NON-STRESS Ordered By: Radiologist Radiology on 07-29-2025 [facility] Work Phone: Urinalysis macro (dipstick) panel (U)on 07-24-2025 Bilirubin, UA Negative Negative - 4(70) +++ mg/dL [facility] Blood, UA Negative Negative - 50 Ezequiel/mcL [facility] Clarity, UA Clear [facility] Color, UA Christine [facility] Glucose, UA Negative Negative - 2000(110) ++++ mg/dL [facility] Interpretation and review of laboratory results Abnormal [facility] Ketones, UA Negative Negative - 160(16) ++++ mg/dL [facility] Leukocytes, UA Positive Negative - 500+++ Jason/mcL [facility] Comment on above: 1+ Nitrite, UA Negative Negative - Positive [facility] pH, UA 6 5 - 9 [facility] Protein, UA Positive Negative - 2000(20) ++++ mg/dL [facility] Comment on above: 0.15 g/L Spec Grav, UA 1.015 1 - 1.03 [facility] Urobilinogen, UA 0.2 0.2 - 12 mg/dL [facility] US OB BPP W NON-STRESS on 07-22-2025 [place] [address] Ultrasound Report Signed Patient: ANGELA REYES MR#: [id number] : 1990 Acct:[id number] Age/Sex: 35 / F ADM Date: 07/22/25 Loc: US Attending Dr: Ángel Buckner D.O. Ordering Physician: Ángel Buckner D.O. Date of Service: 07/22/25 Procedure(s): US OB BPP w non-stress Accession Number(s): [id number] cc: Robles Charles D.O.; Ángel Buckner D.O. The [place] [address] Patient Name: ANGELA REYES MRN: [facility]:[id number] date: 1990 Sex: F Assigned Patient Location: US Current Patient Location: Accession/Order Number: [id number] Exam Date: 07/22/2025 07:58 Report Date: 07/22/2025 [...] Yusuf M.D. 07/22/2025 5:02 PM Dictation Location: [place] [address] Electronically authenticated by: [id number] Y Date: 07/22/2025 17:02 Dictated By: Roddy Yusuf M.D. Signed By: 07/22/252015 DD/ 01 TD/TT: Typing Pool Supervisor: [facility] Radiology, Radiologi MD ember - 07/22/2025 [place] [address] Ultrasound Report Signed Patient: ANGELA REYES MR#: [id number] : 1990 Acct:[id number] Age/Sex: 35 / F ADM Date: 07/22/25 Loc: US Attending Dr: Ángel Buckner D.O. Ordering Physician: Ángel Buckner D.O. Date of Service: 07/22/25 Procedure(s): US OB BPP w non-stress Accession Number(s): [id number] cc: Robles Charles D.O.; Ángel Buckner D.O. [place] [id number] Patient Name: ANGELA REYES MRN: [id number]:[id number] date: 1990 Sex: F Assigned Patient Location: US Current Patient Location: Accession/Order Number: [id number] Exam Date: 07/22/2025 07:58 Report Date: 07/22/2025 [...] Yusuf M.D. 07/22/2025 5:02 PM Dictation Location: [place] [address] Electronically authenticated by: [id number] Y Date: 07/22/2025 17:02 Dictated By: Roddy Yusuf M.D. Signed By: 07/22/252015 DD/ 01 TD/TT: Typing Pool Supervisor: [facility] Radiology Study observation (narrative) [facility] US OB BPP W NON-STRESS Ordered By: Radiologist Radiology on 07-22-2025 [facility] Work Phone: Urinalysis macro (dipstick) panel (U)on 07-17-2025 Bilirubin, UA Negative Negative - 4(70) +++ mg/dL [facility] Blood, UA Negative Negative - 50 Ezequiel/mcL [facility] Color, UA Yellow [facility] Glucose, UA Negative Negative - 1999(110) ++++ mg/dL [facility] Interpretation and review of laboratory results Abnormal [facility] Ketones, UA Negative Negative - 160(16) ++++ mg/dL [facility] Leukocytes, UA Positive Negative - 500+++ Jason/mcL [facility] Comment on above: 2+ Nitrite, UA Negative Negative - Positive [facility] pH, UA 6 5 - 9 [facility] Protein, UA Negative Negative - 1999(20) ++++ mg/dL [facility] Spec Grav, UA 1.015 1 - 1.03 [facility] Urobilinogen, UA 1.0 0.2 - 12 mg/dL [facility] US OB BPP W NON-STRESS on 07-15-2025 [place] [address] Ultrasound Report Signed Patient: ANGELA REYES MR#: [id number] : 1990 Acct:[id number] Age/Sex: 35 / F ADM Date: 07/15/25 Loc: US Attending Dr: Ángel Buckner D.O. Ordering Physician: Ángel Buckner D.O. Date of Service: 07/15/25 Procedure(s): US OB BPP w non-stress Accession Number(s): [id number] cc: Robles Charles D.O.; Ángel Buckner D.O. [place] [id number] Patient Name: ANGELA REYES MRN: [facility]:[id number] date: 1990 Sex: F Assigned Patient Location: [facility] Current Patient Location: Accession/Order Number: [id number] Exam Date: 07/15/2025 09:17 Report Date: 07/15/2025 09:18 At the request of: ÁNGEL BUCKNER DO Procedure: US OB BPP w non-stress Biophysical profile. Reason for exam: Advanced maternal age COMPARISON: 07/08/2025 TECHNIQUE: Transabdominal imaging of the gravid uterus was obtained. FINDINGS: The associate professor physician reports a BPP of 8 out of 8. MARTY is normal at 14 cm. heart rate 136 bpm. US/US OB BPP w non-stress IMPRESSION: BPP 8 out of 8. Impression dictated by: Justin Mack Jr., D.O. 07/15/2025 9:18 AM Dictation Location: [place] [address] Electronically authenticated by: [id number] Y Date: 07/15/2025 09:18 Dictated By: Justin Mack M.D. Signed By: 07/15/25919 DD/ 7 TD/TT: Typing Pool Supervisor: [facility] Radiology, Radiologi MD ember - 07/15/2025 [place] [address] Ultrasound Report Signed Patient: ANGELA REYES MR#: [id number] : 1990 Acct:[id number] Age/Sex: 35 / F ADM Date: 07/15/25 Loc: US Attending Dr: Ángel Buckner D.O. Ordering Physician: Ángel Buckner D.O. Date of Service: 07/15/25 Procedure(s): US OB BPP w non-stress Accession Number(s): [id number] cc: Robles Charles D.O.; Ángel Buckner D.O. The [place] [address] Patient Name: ANGELA REYES MRN: [facility]:[id number] date: 1990 Sex: F Assigned Patient Location: [facility] Current Patient Location: Accession/Order Number: [id number] Exam Date: 07/15/2025 09:17 Report Date: 07/15/2025 09:18 At the request of: ÁNGEL BUCKNER DO Procedure: US OB BPP w non-stress Biophysical profile. Reason for exam: Advanced maternal age COMPARISON: 07/08/2025 TECHNIQUE: Transabdominal imaging of the gravid uterus was obtained. FINDINGS: The associate professor physician reports a BPP of 8 out of 8. MARTY is normal at 14 cm. heart rate 136 bpm. US/US OB BPP w non-stress IMPRESSION: BPP 8 out of 8. Impression dictated by: Justin Mack Jr., D.O. 07/15/2025 9:18 AM Dictation Location: [place] [address] Electronically authenticated by: [id number] Y Date: 07/15/2025 09:18 Dictated By: Justin Mack M.D. Signed By: 07/15/25919 DD/ 7 TD/TT: Typing Pool Supervisor: [facility] Radiology Study observation (narrative) [facility] US OB BPP W NON-STRESS Ordered By: Radiologist Radiology on 07-15-2025 [facility] Work Phone: Urinalysis macro (dipstick) panel (U)on 07-10-2025 Bilirubin, UA Negative Negative - 4(70) +++ mg/dL [facility] Blood, UA Negative Negative - 50 Ezequiel/mcL [facility] Clarity, UA Clear [facility] Color, UA Yellow [facility] Glucose, UA Negative Negative - 2000(110) ++++ mg/dL [facility] Interpretation and review of laboratory results Abnormal [facility] Ketones, UA Negative Negative - 160(16) ++++ mg/dL [facility] Leukocytes, UA Positive Negative - 500+++ Jason/mcL [facility] Comment on above: small Nitrite, UA Negative Negative - Positive [facility] pH, UA 6 5 - 9 [facility] Protein, UA Negative Negative - 2000(20) ++++ mg/dL [facility] Spec Grav, UA 1.015 1 - 1.03 [facility] Urobilinogen, UA 0.2 0.2 - 12 mg/dL [facility] US OB BPP W NON-STRESS on 07-08-2025 [place] [address] Ultrasound Report Signed Patient: ANGELA REYES MR#: [id number] : 1990 Acct:[id number] Age/Sex: 35 / F ADM Date: 07/08/25 Loc: US Attending Dr: Ángel Buckner D.O. Ordering Physician: Ángel Buckner D.O. Date of Service: 07/08/25 Procedure(s): US OB BPP w non-stress Accession Number(s): [id number] cc: Robles Charles D.O.; Ángel Buckner D.O. The [address] [address] Patient Name: ANGELA REYES MRN: [facility]:[id number] date: 1990 Sex: F Assigned Patient Location: [facility] Current Patient Location: Accession/Order Number: [id number] Exam Date: 07/08/2025 09:19 Report Date: 07/08/2025 09:19 At the request of: ÁNGEL BUCKNER DO Procedure: US OB BPP w non-stress Biophysical profile. Reason for exam: History of miscarriage COMPARISON: 07/01/2025 TECHNIQUE: Transabdominal imaging of the gravid uterus was obtained. FINDINGS: The associate professor physician reports a BPP of 8 out of 8. MARTY is normal at 12.5 cm. heart rate 135 bpm. US/US OB BPP w non-stress IMPRESSION: BPP 8 out of 8. Impression dictated by: Justin Mack Jr., D.O. 07/08/2025 9:19 AM Dictation Location: [place] [address] Electronically authenticated by: [id number] Y Date: 07/08/2025 09:19 Dictated By: Justin Mack M.D. Signed By: 07/08/25921 DD/ 8 TD/TT: Typing Pool Supervisor: [facility] Radiology Radiologbrittanie pa MD - 07/08/2025 The [place] [id number] Ultrasound Report Signed Patient: ANGEAL REYES MR#: [id number] : 1990 Acct:[id number] Age/Sex: 35 / F ADM Date: 07/08/25 Loc: US Attending Dr: Ángel Buckner D.O. Ordering Physician: Ángel Buckner D.O. Date of Service: 07/08/25 Procedure(s): US OB BPP w non-stress Accession Number(s): [id number] cc: Robles Charles D.O.; Ángel Buckner D.O. [address] [address] Patient Name: ANGELA REYES MRN: [id number]:[id number] date: 1990 Sex: F Assigned Patient Location: [facility] Current Patient Location: Accession/Order Number: [id number] Exam Date: 07/08/2025 09:19 Report Date: 07/08/2025 09:19 At the request of: ÁNGEL BUCKNER DO Procedure: US OB BPP w non-stress Biophysical profile. Reason for exam: History of miscarriage COMPARISON: 07/01/2025 TECHNIQUE: Transabdominal imaging of the gravid uterus was obtained. FINDINGS: The associate professor physician reports a BPP of 8 out of 8. MARTY is normal at 12.5 cm. heart rate 135 bpm. US/US OB BPP w non-stress IMPRESSION: BPP 8 out of 8. Impression dictated by: Justin Mack Jr., D.O. 07/08/2025 9:19 AM Dictation Location: [place] [address] Electronically authenticated by: [id number] Y Date: 07/08/2025 09:19 Dictated By: Justin Mack M.D. Signed By: 07/08/25921 DD/ 8 TD/TT: Typing Pool Supervisor: [facility] Radiology Study observation (narrative) [facility] US OB BPP W NON-STRESS Ordered By: Radiologist Radiology on 07-08-2025 [facility] Work Phone: US OB BPP W NON-STRESS on 07-01-[address] [address] Ultrasound Report Signed Patient: ANGELA REYES MR#: [id number] : 1990 Acct:[id number] Age/Sex: 35 / F ADM Date: 07/01/25 Loc: US Attending Dr: Ángel Buckner D.O. Ordering Physician: Ángel Buckner D.O. Date of Service: 07/01/25 Procedure(s): US OB BPP w non-stress Accession Number(s): [id number] cc: Robles Charles D.O.; Ángel Buckner D.O. [place] [id number] Patient Name: ANGELA REYES MRN: [facility]:[id number] date: 1990 Sex: F Assigned Patient Location: [facility] Current Patient Location: Accession/Order Number: [id number] Exam Date: 07/01/2025 20:05 Report Date: 07/01/2025 [...] Yusuf M.D. 07/01/2025 8:07 PM Dictation Location: [place] [address] Electronically authenticated by: [id number] Y Date: 07/01/2025 20:07 Dictated By: Roddy Yusuf M.D. Signed By: 07/01/252008 DD/ 06 TD/TT: Typing Pool Supervisor: [facility] Radiology, Radiologbrittanie pa MD - 07/01/[address] [address] Ultrasound Report Signed Patient: ANGELA REYES MR#: [id number] : 1990 Acct:[id number] Age/Sex: 35 / F ADM Date: 07/01/25 Loc: US Attending Dr: Ángel Buckner D.O. Ordering Physician: Ángel Buckner D.O. Date of Service: 07/01/25 Procedure(s): US OB BPP w non-stress Accession Number(s): [id number] cc: Robles Charles D.O.; Ángel Buckner D.O. [place] [address] Patient Name: ANGELA REYES MRN: [id number] date: 1990 Sex: F Assigned Patient Location: [facility] Current Patient Location: Accession/Order Number: [id number] Exam Date: 07/01/2025 20:05 Report Date: 07/01/2025 [...] Yusuf M.D. 07/01/2025 8:07 PM Dictation Location: [place] [address] Electronically authenticated by: [id number] Y Date: 07/01/2025 20:07 Dictated By: Roddy Yusuf M.D. Signed By: 07/01/252008 DD/ 06 TD/TT: Typing Pool Supervisor: [facility] Radiology Study observation (narrative) [facility] US OB BPP W NON-STRESS Ordered By: Radiologist Radiology on 07-01-2025 [facility] Work Phone: US OB FOLLOW UP TRANSABDOMIN [...] II, MD, PHD at 26-Jun-2025 11:42:39 PM [employer] [facility] Normal Not Available Comment on above: Order Comment: US OB SCAN FOR GROWTH Estimated Date of Delivery: 08/09/25 Gestational Age as of 06/12/2025: 31w5d Urinalysis macro (dipstick) panel (U)on 06-26-2025 Bilirubin, UA Negative Negative - 4(70) +++ mg/dL [facility] Healthcare Blood, UA Negative Negative - 50 Ezequiel/mcL [facility] Clarity, UA Clear [facility] Color, UA Yellow [facility] Glucose, UA Negative Negative - 2000(110) ++++ mg/dL [facility] Interpretation and review of laboratory results Normal [facility] Ketones, UA Negative Negative - 160(16) ++++ mg/dL [facility] Leukocytes, UA Negative Negative - 500+++ Jason/mcL [facility] Nitrite, UA Negative Negative - Positive [facility] pH, UA 6.5 5 - 9 [facility] Protein, UA Negative Negative - 1999(20) ++++ mg/dL [facility] Spec Grav, UA 1.01 1 - 1.03 [facility] Urobilinogen, UA 1.0 0.2 - 12 mg/dL [facility] US OB BPP W NON-STRESS on 06-24-2025 [place] [address] Ultrasound Report Signed Patient: ANGELA REYES MR#: [id number] : 1990 Acct:[id number] Age/Sex: 35 / F ADM Date: 06/24/25 Loc: US Attending Dr: Ángel Buckner D.O. Ordering Physician: Ángel Buckner D.O. Date of Service: 06/24/25 Procedure(s): US OB BPP w non-stress Accession Number(s): [id number] cc: Robles Charles D.O.; Ángel Buckner D.O. [place] [address] Patient Name: ANGELA REYES MRN: [facility]:[id number] date: 1990 Sex: F Assigned Patient Location: Current Patient Location: Accession/Order Number: [id number] Exam Date: 06/24/2025 09:33 Report Date: 06/24/2025 09:34 At the request of: ÁNGEL BUCKNER DO Procedure: US OB BPP w non-stress Biophysical profile. Reason for exam: History of miscarriage COMPARISON: 06/17/2025 TECHNIQUE: Transabdominal imaging of the gravid uterus was obtained. FINDINGS: The associate professor physician reports a BPP of 8 out of 8. MARTY is normal at 15 cm. heart rate 130 bpm. US/US OB BPP w non-stress IMPRESSION: BPP 8 out of 8. Impression dictated by: Justin Mack Jr., D.O. 06/24/2025 9:34 AM Dictation Location: [place] [address] Electronically authenticated by: [id number] Y Date: 06/24/2025 09:34 Dictated By: Justin Mack M.D. Signed By: 06/24/2536 DD/ 3 TD/TT: Typing Pool Supervisor: [facility] Radiology, Radiologbrittanie pa MD - 06/24/2025 [place] [address] Ultrasound Report Signed Patient: ANGELA REYES MR#: [id number] : 1990 Acct:[id number] Age/Sex: 35 / F ADM Date: 06/24/25 Loc: US Attending Dr: Ángel Buckner D.O. Ordering Physician: Ángel Buckner D.O. Date of Service: 06/24/25 Procedure(s): US OB BPP w non-stress Accession Number(s): [id number] cc: Robles Charles D.O.; Ángel Buckner D.O. The [place] [address] Patient Name: ANGELA REYES MRN: [facility]:[id number] date: 1990 Sex: F Assigned Patient Location: US Current Patient Location: Accession/Order Number: [id number] Exam Date: 06/24/2025 09:33 Report Date: 06/24/2025 09:34 At the request of: ÁNGEL BUCKNER DO Procedure: US OB BPP w non-stress Biophysical profile. Reason for exam: History of miscarriage COMPARISON: 06/17/2025 TECHNIQUE: Transabdominal imaging of the gravid uterus was obtained. FINDINGS: The associate professor physician reports a BPP of 8 out of 8. MARTY is normal at 15 cm. heart rate 130 bpm. US/US OB BPP w non-stress IMPRESSION: BPP 8 out of 8. Impression dictated by: Justin Mack Jr., D.O. 06/24/2025 9:34 AM Dictation Location: [facility] Electronically authenticated by: [id number] Y Date: 06/24/2025 09:34 Dictated By: Justin Mack M.D. Signed By: 06/24/2536 DD/ TD/TT: Typing Pool Supervisor: [facility] Radiology Study observation (narrative) [facility] US OB BPP W NON-STRESS Ordered By: Radiologist Radiology on 06-24-2025 [facility] Work Phone: US OB BPP W NON-STRESS on 06-17-2025 [place] [address] Ultrasound Report Signed Patient: ANGELA REYES MR#: [id number] : 1990 Acct:[id number] Age/Sex: 35 / F ADM Date: 06/17/25 Loc: [facility] 250-[address]: Ángel Buckner D.O. Ordering Physician: Ángel Buckner D.O. Date of Service: 06/17/25 Procedure(s): US OB BPP w non-stress Accession Number(s): [id number] cc: Robles Charles D.O.; Ángel Buckner D.O. [place] [address] Patient Name: ANGELA REYES MRN: [facility]:[id number] date: 1990 Sex: F Assigned Patient Location: [facility] Current Patient Location: [facility] Accession/Order Number: [id number] Exam Date: 06/17/2025 09:17 Report Date: 06/17/2025 [...] Ramachandran M.D. 06/17/2025 9:20 AM Dictation Location: [place] [address] Electronically authenticated by: [id number] Y Date: 06/17/2025 09:20 Dictated By: Carlton Ramachandran M.D. Signed By: 06/17/25921 DD/ 9 TD/TT: Typing Pool Supervisor: [facility] Tyrese Wolff MD - 06/17/2025 [place] [address] Ultrasound Report Signed Patient: ANGELA REYES MR#: [id number] : 1990 Acct:[id number] Age/Sex: 35 / F ADM Date: 06/17/25 Loc: [facility] 250-[address]: Ángel Buckner D.O. Ordering Physician: Ángel Buckner D.O. Date of Service: 06/17/25 Procedure(s): US OB BPP w non-stress Accession Number(s): [id number] cc: Robles Charles D.O.; Ángel Buckner D.O. The [place] [address] Patient Name: ANGELA REYES MRN: [facility]:[id number] date: 1990 Sex: F Assigned Patient Location: [facility] Current Patient Location: [facility] Accession/Order Number: [id number] Exam Date: 06/17/2025 09:17 Report Date: 06/17/2025 [...] Ramachandran M.D. 06/17/2025 9:20 AM Dictation Location: [place] [address] Electronically authenticated by: [id number] Y Date: 06/17/2025 09:20 Dictated By: Carlton Ramachandran M.D. Signed By: 06/17/25921 DD/ 9 TD/TT: Typing Pool Supervisor: [facility] Radiology Study observation (narrative) [facility] US OB BPP W NON-STRESS Ordered By: Radiologist Radiology on 06-17-2025 [facility] Work Phone: US OB BPP W NON-STRESS on 06-10-2025 [place] [address] Ultrasound Report Signed Patient: ANGELA REYES MR#: [id number] : 1990 Acct:[id number] Age/Sex: 35 / F ADM Date: 06/10/25 Loc: US Attending Dr: Ángel Buckner D.O. Ordering Physician: Ángel Buckner D.O. Date of Service: 06/10/25 Procedure(s): US OB BPP w non-stress Accession Number(s): [id number] cc: Robles Charles D.O.; Ángel Buckner D.O. [place] [id number] Patient Name: ANGELA REYES MRN: [facility]:[id number] date: 1990 Sex: F Assigned Patient Location: [facility] Current Patient Location: Accession/Order Number: [id number] Exam Date: 06/10/2025 18:36 Report Date: 06/10/2025 [...] Yusuf M.D. 06/10/2025 6:38 PM Dictation Location: [place] [address] Electronically authenticated by: [id number] Y Date: 06/10/2025 18:38 Dictated By: Roddy Yusuf M.D. Signed By: 06/10/251840 DD/ 37 TD/TT: Typing Pool Supervisor: [facility] Radiology, Radiologbrittanie pa MD - 06/10/2025 [place] [address] Ultrasound Report Signed Patient: ANGELA REYES MR#: [id number] : 1990 Acct:[id number] Age/Sex: 35 / F ADM Date: 06/10/25 Loc: US Attending Dr: Ángel Buckner D.O. Ordering Physician: Ángel Buckner D.O. Date of Service: 06/10/25 Procedure(s): US OB BPP w non-stress Accession Number(s): [id number] cc: Robles Charles D.O.; Ángel Buckner D.O. The [place] [address] Patient Name: ANGELA REEYS MRN: [facility]:[id number] date: 1990 Sex: F Assigned Patient Location: [facility] Current Patient Location: Accession/Order Number: [id number] Exam Date: 06/10/2025 18:36 Report Date: 06/10/2025 [...] Yusuf M.D. 06/10/2025 6:38 PM Dictation Location: [place] [address] Electronically authenticated by: [id number] Y Date: 06/10/2025 18:38 Dictated By: Roddy Yusuf M.D. Signed By: 06/10/25 184 DD/ 37 TD/TT: Typing Pool Supervisor: [facility] Radiology Study observation (narrative) [facility] US OB BPP W NON-STRESS Ordered By: Radiologist Radiology on 06-10-2025 [facility] [employer] Work Phone: US OB BPP W NON-STRESS on 06-03-2025 [place] [address] Ultrasound Report Signed Patient: ANGELA REYES MR#: [id number] : 1990 Acct:[id number] Age/Sex: 35 / F ADM Date: 06/03/25 Loc: US Attending Dr: Ángel Buckner D.O. Ordering Physician: Ángel Buckner D.O. Date of Service: 06/03/25 Procedure(s): US OB BPP w non-stress Accession Number(s): [id number] cc: Robles Charles D.O.; Ángel Buckner D.O. [place] [id number] Patient Name: ANGELA REYES MRN: [id number]:[id number] date: 1990 Sex: F Assigned Patient Location: [facility] Current Patient Location: Accession/Order Number: [id number] Exam Date: 06/03/2025 14:22 Report Date: 06/03/2025 [...] Durand M.D. 06/03/2025 2:23 PM Dictation Location: [place] [address] Electronically authenticated by: [id number] Y Date: 06/03/2025 14:23 Dictated By: Aguilar Durand D.O. Signed By: 06/03/251424 DD/ 22 TD/TT: Typing Pool Supervisor: [facility] Radiology, Radiologi MD ember - 06/03/2025 [place] [address] Ultrasound Report Signed Patient: ANGELA REYES MR#: [id number] : 1990 Acct:[id number] Age/Sex: 35 / F ADM Date: 06/03/25 Loc: US Attending Dr: Ángel Buckner D.O. Ordering Physician: Ángel Buckner D.O. Date of Service: 06/03/25 Procedure(s): US OB BPP w non-stress Accession Number(s): [id number] cc: Robles Charles D.O.; Ángel Buckner D.O. The [place] [address] Patient Name: ANGELA REYES MRN: [facility]:[id number] date: 1990 Sex: F Assigned Patient Location: [facility] Current Patient Location: Accession/Order Number: [id number] Exam Date: 06/03/2025 14:22 Report Date: 06/03/2025 [...] Durand M.D. 06/03/2025 2:23 PM Dictation Location: [place] [address] Electronically authenticated by: [id number] Y Date: 06/03/2025 14:23 Dictated By: Aguilar Durand D.O. Signed By: 06/03/25 1425 DD/ 22 TD/TT: Typing Pool Supervisor: [facility] Radiology Study observation (narrative) [facility] US OB BPP W NON-STRESS Ordered By: Radiologist Radiology on 06-03-2025 [facility] Work Phone: Urinalysis macro (dipstick) panel (U)on 05-30-2025 Bilirubin, UA Negative Negative - 4(70) +++ mg/dL [facility] Blood, UA Negative Negative - 50 Ezequiel/mcL [facility] Clarity, UA Clear [facility] Color, UA Yellow [facility] Glucose, UA Negative Negative - 2000(110) ++++ mg/dL [facility] Interpretation and review of laboratory results Normal [facility] Ketones, UA Negative Negative - 160(16) ++++ mg/dL [facility] Leukocytes, UA Negative Negative - 500+++ Jason/mcL [facility] Nitrite, UA Negative Negative - Positive [facility] pH, UA 5.5 5 - 9 [facility] Protein, UA Negative Negative - 2000(20) ++++ mg/dL [facility] Spec Grav, UA 1.02 1 - 1.03 [facility] Urobilinogen, UA 1.0 0.2 - 12 mg/dL [facility] US OB GROWTHon 05-11-2025 [place] [address] Ultrasound Report Signed Patient: ANGELA REYES MR#: [id number] : 1990 Acct:[id number] Age/Sex: 35 / F ADM Date: 05/11/25 Loc: US Attending Dr: Edson Dewitt Ordering Physician: Edson Dewitt Date of Service: 05/11/25 Procedure(s): US OB growth Accession Number(s): [id number] cc: Robles Charles D.O.; Edson Dewitt The [place] [id number] Patient Name: ANGELA REYES MRN: [facility]:[id number] date: 1990 Sex: F Assigned Patient Location: US Current Patient Location: US Accession/Order Number: [id number] Exam Date: 05/11/2025 14:38 Report Date: 05/11/2025 [...] Jr., D.O. 05/11/2025 2:40 PM Dictation Location: [place] [address] Electronically authenticated by: [id number] Y Date: 05/11/2025 14:40 Dictated By: Justin Mack M.D. Signed By: 05/11/25 1442 DD/ 1440 TD/TT: Typing Pool Supervisor: [facility] Radiology, Radiologi MD ember - 05/11/2025 The [place] [id number] Ultrasound Report Signed Patient: ANGELA REYES MR#: [id number] : 1990 Acct:[id number] Age/Sex: 35 / F ADM Date: 05/11/25 Loc: US Attending Dr: Edson Dewitt Ordering Physician: Edson Dewitt Date of Service: 05/11/25 Procedure(s): US OB growth Accession Number(s): [id number] cc: Robles Charles D.O.; Edson Dewitt [place] [id number] Patient Name: ANGELA REYES MRN: [id number]:[id number] date: 1990 Sex: F Assigned Patient Location: US Current Patient Location: Accession/Order Number: [id number] Exam Date: 05/11/2025 14:38 Report Date: 05/11/2025 [...] Jr., D.O. 05/11/2025 2:40 PM Dictation Location: [place] [address] Electronically authenticated by: [id number] Y Date: 05/11/2025 14:40 Dictated By: Justin Mack M.D. Signed By: 05/11/25 1442 DD/ 39 TD/TT: Typing Pool Supervisor: [facility] Radiology Study observation (narrative) [facility] OB GROWTHOrdered By: Reg ologist Radiology on 05-11-2025 [facility] Work Phone: ALL CBC WITH AUTO DIFFon BASOPHILS ABSOLUTE AUTO 0 [address] [facility] Basophils/100 WBC (Bld) 0.2 % 0.2 - 2.0 % [facility] Eosinophils/100 WBC (Bld) 1.2 % 0.9 - 7.0 % [facility] Erythrocyte distribution width (RBC) [Ratio] 13.2 % 11.0 - 15.0 % [facility] Hematocrit (Bld) [Volume fraction] 31.9 % Low 36.0 - 48.0 % [facility] Hemoglobin (Bld) [Mass/Vol] 10.6 g/dL Low 12.0 - 16.0 g/dL [facility] IMMATURE GRANULOCYTES ABS AUTO 0.06 High [facility] Immature granulocytes/100 WBC (Bld) 0.6 % High 0.0 - 0.5 % [facility] Interpretation and review of laboratory results Abnormal [facility] LYMPHOCYTES ABSOLUTE AUTO 1.6 [facility] Lymphocytes/100 WBC (Bld) 15.6 % Low 20.5 - 60.0 % [facility] MCH (RBC) [Entitic mass] 32.6 pg 26.7 - 34.0 pg [facility] MCHC (RBC) [Mass/Vol] 33.2 g/dL 29.9 - 35.2 g/dL [facility] MCV (RBC) [Entitic vol] 98.2 fL 81.0 - 99.0 fL [facility] MONOCYTES ABSOLUTE AUTO 0.6 N [facility] Monocytes/100 WBC (Bld) 6 % 1.7 - 12.0 % [facility] NEUTROPHILS ABSOLUTE AUTO 7.7 High [facility] Neutrophils/100 WBC (Bld) 76.4 % High 43.0 - 75.0 % [facility] Platelet mean volume (Bld) [Entitic vol] 9 fL Low 9.5 - 13.5 fL [facility] EO # 0.1 [facility] PLT [address] [facility] RBC 3.25 Low [facility] WBC 10.1 [facility] GLUCOSE 1 HOURon 04-18-2025 Glucose [Mass/Vol] 96 mg/dL NINF - 13 0 mg/dL [facility] No Panel Informationon 04-18 [facility] US OB LIMITED 1+ FETUSESon 0 04-18-2025 [...] II, MD, PHD at 21-Apr-2025 12:15:59 PM [employer] [employer] [facility] [facility] Normal Not Available Comment on above: Order Comment: US OB INCOMPLETE ANATOMY W US OB TRANSVAGINAL Estimated Date of Delivery: 08/09/25 Gestational Age as of 03/30/2025: 21w1d Urinalysis macro (dipstick) panel (U)on 03-30-2025 Bilirubin, UA Negative Negative - 4(70) +++ mg/dL [facility] Blood, UA Negative Negative - 50 Ezequiel/mcL [facility] Clarity, UA Clear [facility] Color, UA Yellow [facility] Glucose, UA Negative Negative - 2000(110) ++++ mg/dL [facility] Interpretation and review of laboratory results Normal [facility] Ketones, UA Negative Negative - 160(16) ++++ mg/dL [facility] Leukocytes, UA Negative Negative - 500+++ Jason/mcL [facility] Nitrite, UA Negative Negative - Positive [facility] pH, UA 7 5 - 9 [facility] Protein, UA Negative Negative - 2000(20) ++++ mg/dL [facility] Spec Grav, UA 1.02 1 - 1.03 [facility] Urobilinogen, UA 0.2 0.2 - 12 mg/dL [facility] US OB ANATOMYon 03-21-2025 [place] [address] Ultrasound Report Signed Patient: ANGELA REYES MR#: [id number] : 1990 Acct:[id number] Age/Sex: 35 / F ADM Date: 03/20/25 Loc: US Attending Dr: Deisy Villar Ordering Physician: Deisy Villar Date of Service: 03/20/25 Procedure(s): US OB anatomy Accession Number(s): [id number] cc: Deisy Villar; Robles Charles D.O. The [address] [address] Patient Name: ANGELA REYES MRN: [facility]:[id number] date: 1990 Sex: F Assigned Patient Location: Current Patient Location: Accession/Order Number: [id number] Exam Date: 03/21/2025 13:12 Report Date: 03/21/2025 [...] Aguilar Durand M.D.03/21/2025 1:16 PM Dictation Location: [place] [address] Electronically authenticated by: [id number] Y Date: 03/21/2025 13:16 Dictated By: Aguilar Durand D.O. Signed By: 03/21/25 1319 DD/ 1316 TD/TT: Typing Pool Supervisor: [facility] Radiology, Radiologbrittanie pa MD - 03/21/[address] [address] Ultrasound Report Signed Patient: ANGELA REYES MR#: [id number] : 1990 Acct:[id number] Age/Sex: 35 / F ADM Date: 03/20/25 Loc: US Attending Dr: Deisy Villar Ordering Physician: Deisy Villar Date of Service: 03/20/25 Procedure(s): US OB anatomy Accession Number(s): [id number] cc: Deisy Villar; Robles Charles D.O. [address] [address] Patient Name: ANGELA REYES MRN: [id number]:[id number] date: 1990 Sex: F Assigned Patient Location: US Current Patient Location: Accession/Order Number: [id number] Exam Date: 03/21/2025 13:12 Report Date: 03/21/2025 [...] Aguilar Durand M.D.03/21/2025 1:16 PM Dictation Location: [place] Electronically authenticated by: [id number] Y Date: 03/21/2025 13:16 Dictated By: Aguilar Durand D.O. Signed By: 03/21/25 1319 DD/ 15 TD/TT: Typing Pool Supervisor: [facility] Radiology Study observation (narrative) [facility] US OB ANATOMYOrdered By: Chepe iologdarwin Radiology on 03-21-2025 [facility] Work Phone: US OB CERVICAL LENGTHon 03-01 [place] [address] Ultrasound Report Signed Patient: ANGELA REYES MR#: [id number] : 1990 Acct:[id number] Age/Sex: 35 / F ADM Date: 03/20/25 Loc: US Attending Dr: Deisy Villar Ordering Physician: Deisy Villar Date of Service: 03/20/25 Procedure(s): US OB cervical length Accession Number(s): [id number] cc: Deisy Villar; Robles Charles D.O. [place] [id number] Patient Name: ANGELA REYES MRN: [id number]:[id number] date: 1990 Sex: F Assigned Patient Location: US Current Patient Location: Accession/Order Number: [id number] Exam Date: 03/21/2025 09:18 Report Date: 03/21/2025 09:19 At the request of: DEISY VILLAR Procedure: US OB cervical length Ultrasound assessment of the cervical length The cervical length is 3.8 cm. The cervical os is closed. US/US OB cervical length IMPRESSION: #3.8 cm cervical length. Impression dictated by: Aguilar Durand M.D.03/21/2025 9:19 AM Dictation Location: [place] Electronically authenticated by: [id number] Y Date: 03/21/2025 09:19 Dictated By: Aguilar Durand D.O. Signed By: 03/21/25921 DD/ 8 TD/TT: Typing Pool Supervisor: [facility] Neelima Wolffogbrittanie pa MD - 03/21/2025 [place] [address] Ultrasound Report Signed Patient: ANGELA REYES MR#: [id number] : 1990 Acct:[id number] Age/Sex: 35 / F ADM Date: 03/20/25 Loc: US Attending Dr: Deisy Villar Ordering Physician: Deisy Villar Date of Service: 03/20/25 Procedure(s): US OB cervical length Accession Number(s): [id number] cc: Deisy Villar; Robles Charles D.O. The [place] [phone] Patient Name: ANGELA REYES MRN: [facility]:[id number] date: 1990 Sex: F Assigned Patient Location: US Current Patient Location: Accession/Order Number: [id number] Exam Date: 03/21/2025 09:18 Report Date: 03/21/2025 09:19 At the request of: DEISY VILLAR Procedure: US OB cervical length Ultrasound assessment of the cervical length The cervical length is 3.8 cm. The cervical os is closed. US/US OB cervical length IMPRESSION: #3.8 cm cervical length. Impression dictated by: Aguilar Durand M.D.03/21/2025 9:19 AM Dictation Location: [place] [address] Electronically authenticated by: [id number] Y Date: 03/21/2025 09:19 Dictated By: Aguilar Durand D.O. Signed By: 03/21/25921 DD/ 8 TD/TT: Typing Pool Supervisor: [facility] Radiology Study observation (narrative) [facility] US OB CERVICAL LENGTHOrdered By: Radiologist Radiology on 03-21-2025 [facility] Work Phone: IGP,APTIMA HPV,AGE GDLNon 04 --2025 AGE GDLN ACOG TESTING Note . [facility] Comment on above: TESTS RESULT FLAG UN ITS REF RANGE LAB Clinician Provided Cytology Information Source.............Cervix Other.............. No. of containers..01 ThinPrep Vial Age Algo ACOG Lara... 30 FLAG LEGEND: L-Low Normal,H-High Normal,LL-Alert Low,HH-Alert High <-Panic Low,>-Panic High,A-Abnormal,AA-Critical Abnormal Performed at: 01 [address] [address] Ilana Heath MD, HPV APTIMA Negative Negative [facility] Comment on above: This nucleic acid am plification test detects fourteen high- risk HPV types (16,18,31,33,35,39,45,51,52,56,58,59,66,68) without differentiation. Performed at: =[address] [id number] Balance Recesser: Ilana Heaht MD, Phone: [phone] Performed at: [address] [id number] Balance Recesser: Ilana Heath MD, Phone: [phone] IGP, APTIMA HPV, RFX 16/18,45 Note . [facility] Comment on above: TESTS RESULT FLAG UN ITS REF RANGE LAB DIAGNOSIS: 02 NEGATIVE FOR INTRAEPITHELIAL LESION OR MALIGNANCY. THIS SPECIMEN WAS RESCREENED PART OF OUR [facility] ARCHEOLOGY PROFESSOR PROGRAM. Specimen adequacy: 02 Satisfactory for evaluation. No endocervical component is identified. Performed by: 03 Eugenia Kennedy, Mapping Engineer (ASCP) QC reviewed by: 02 Meredith Chávez, Dispenser Operator . 02 Note: Note 02 The [...] Abnormal Performed at: 02 WB [facility] [address] [id number] Ilana Heath MD, 03 KWCYT [facility] [address] [place] [id number] Lloyd Kim MD, SPATULA-ALONE [facility] RECURRENT VAGINITIS (HTRX)on 03-03-2025 ATOPOBIUM VAGINAE 0 [facility] ATOPOBIUM VAGINAE Not detected [facility] BVAB 2,3 (BACTERIAL VAGINOSIS ASSOCIATED BACTERIA 2, 3); MOBILUNCUS SPP 0 [facility] BVAB 2,3 (BACTERIAL VAGINOSIS ASSOCIATED BACTERIA 2, 3); MOBILUNCUS SPP Not detected [facility] ANEUDY ALBICANS, PARAPSILOSIS, TROPICALIS 0 [facility] ANEUDY ALBICANS, PARAPSILOSIS, TROPICALIS Not detected [facility] ANEUDY GLABRATA 0 [facility] ANEUDY GLABRATA Not detected [facility] ANEUDY KRUSEI 0 [facility] ANEUDY KRUSEI Not detected [facility] CHLAMYDIA TRACHOMATIS 0 [facility] CHLAMYDIA TRACHOMATIS Not detected [facility] GARDNERELLA VAGINALIS 0 [facility] GARDNERELLA VAGINALIS Not detected [facility] MEGASPHAERA (TYPES 1, 2) 0 [facility] MEGASPHAERA (TYPES 1, 2) Not detected [facility] MYCOPLASMA GENITALIUM 0 [facility] MYCOPLASMA GENITALIUM Not detected [facility] NEISSERIA GONORRHOEAE 0 [facility] NEISSERIA GONORRHOEAE Not detected [facility] TRICHOMONAS VAGINALIS 0 [facility] TRICHOMONAS VAGINALIS Not detected N [facility] Urinalysis macro (dipstick) panel (U)on 03-02-2025 Bilirubin, UA Negative Negative - 4(70) +++ mg/dL [facility] Blood, UA Negative Negative - 50 Ezequiel/mcL [facility] Clarity, UA Clear [facility] Color, UA Yellow [facility] Glucose, UA Negative Negative - 1999(110) ++++ mg/dL [facility] Interpretation and review of laboratory results Normal [facility] Ketones, UA Negative Negative - 160(16) ++++ mg/dL [facility] Leukocytes, UA Negative Negative - 500+++ Jason/mcL [facility] Nitrite, UA Negative Negative - Positive [facility] pH, UA 7 5 - 9 [facility] Protein, UA Negative Negative - 1999(20) ++++ mg/dL [facility] Spec Grav, UA 1.02 1 - 1.03 [facility] Urobilinogen, UA 0.2 0.2 - 12 mg/dL [facility] Urinalysis macro (dipstick) panel (U)on 02-02-2025 Bilirubin, UA Negative Negative - 4(70) +++ mg/dL [facility] Blood, UA Negative Negative - 50 Ezequiel/mcL [facility] Clarity, UA Clear [facility] Color, UA Yellow [facility] Glucose, UA Negative Negative - 1999(110) ++++ mg/dL [facility] Interpretation and review of laboratory results Abnormal [facility] Ketones, UA Negative Negative - 160(16) ++++ mg/dL [facility] Leukocytes, UA Trace Negative - 500+++ Jason/mcL [facility] Nitrite, UA Negative Negative - Positive [facility] pH, UA 6 5 - 9 [facility] Protein, UA Negative Negative - 1999(20) ++++ mg/dL [facility] Spec Grav, UA 1.025 1 - 1.03 [facility] Urobilinogen, UA 0.2 0.2 - 12 mg/dL [facility] ALL CBC WITH AUTO DIFFon BASOPHILS ABSOLUTE AUTO 0 [facility] Basophils/100 WBC (Bld) 0.4 % 0.2 - 2.0 % [facility] Eosinophils/100 WBC (Bld) 2.2 % 0.9 - 7.0 % [facility] Erythrocyte distribution width (RBC) [Ratio] 12.5 % 11.0 - 15.0 % [facility] Hematocrit (Bld) [Volume fraction] 34 % Low 36.0 - 48.0 % [facility] Hemoglobin (Bld) [Mass/Vol] 11.7 g/dL Low 12.0 - 16.0 g/dL [facility] IMMATURE GRANULOCYTES ABS AUTO 0.03 [facility] Immature granulocytes/100 WBC (Bld) 0.4 % 0.0 - 0.5 % [facility] Interpretation and review of laboratory results Abnormal [facility] LYMPHOCYTES ABSOLUTE AUTO 1.6 [facility] Lymphocytes/100 WBC (Bld) 20.4 % Low 20.5 - 60.0 % [facility] MCH (RBC) [Entitic mass] 31.5 pg 26.7 - 34.0 pg [facility] MCHC (RBC) [Mass/Vol] 34.4 g/dL 29.9 - 35.2 g/dL [facility] MCV (RBC) [Entitic vol] 91.6 fL 81.0 - 99.0 fL [facility] MONOCYTES ABSOLUTE AUTO 0.6 [facility] Monocytes/100 WBC (Bld) 7.2 % 1.7 - 12.0 % [facility] NEUTROPHILS ABSOLUTE AUTO 5.6 [facility] Neutrophils/100 WBC (Bld) 69.4 % 43.0 - 75.0 % [facility] Platelet mean volume (Bld) [Entitic vol] 9.6 fL 9.5 - 13.5 fL [facility] EO # 0.2 [facility] TB PLT 302 [facility] RBC 3.71 Low [facility] WBC 8 [facility] US OB TRANSVAGINALon 025 US OB TRANSVAGINAL [...] II, MD, PHD at 09-Jan-2025 09:10:54 AM [facility] [facility] Normal Not Available Comment on above: Order Comment: US OB TRANSVAGINAL No LMP recorded. [facility] PREG QUANT HCGon 025 HCG QUANTITATIVE 97795 mIU/mL [facility] Comment on above: 5-50 0.2-1 WEEK 50-500 1-2 WEEKS 100-5,000 2-3 WEEKS 500-10,000 3-4 WEEKS 1,000-50,000 4-5 WEEKS 10,000-100,000 5-6 WEEKS 15,000-200,000 6-8 WEEKS 10,000-100,000 2[facility] HCGon 025 HCG QUANTITATIVE 92118 mIU/mL [facility] Comment on above: 5-50 0.2-1 WEEK 50-500 1-2 WEEKS 100-5,000 2-3 WEEKS 500-10,000 3-4 WEEKS 1,000-50,000 4-5 WEEKS 10,000-100,000 5-6 WEEKS 15,000-200,000 6-8 WEEKS 10,000-100,000 2[facility]ophil %Ordered By: Delano Francis on 09-22-2024 Basophils/100 WBC (Bld) 0.6 % Normal . [facility] Comment on above: Performed By: #### D HEAS, LC T4, [id number], SEROTON, TEST F + T, T3R, THYGLOB AB, ESTRADIOL, TPO, SHBG, ESTRONE, INSULIN, PROG #### [facility] , #### T4F, TRISTEN, TSH3, A1C WTH eA, FILIBERTO, GLU, T3F #### [address] Automated basophil countOrde red By: Delano Francis on 09-22-2024 Basophils (Bld) [#/Vol] 0.0 10*3/uL Normal 0.0-0.2 [facility] Comment on above: Result Comment: PERF ORMED BY: [place] [address] PATHOLOGIST MECHANICAL ARTIST JOSE GOEL M.D. Performed By: #### D HEAS, LC T4, [id number], SEROTON, TEST F + T, T3R, THYGLOB AB, ESTRADIOL, TPO, SHBG, ESTRONE, INSULIN, PROG #### [facility] , #### T4F, TRISTEN, TSH3, A1C WTH eA, FILIBERTO, GLU, T3F #### [facility] [address] [place] [address] Automated blood monocyte cou ntOrdered By: Delano Francis on 09-22-2024 Monocytes (Bld) [#/Vol] 0.4 10*3/uL Normal 0.0-0.8 [facility] Comment on above: Performed By: #### D HEAS, LC T4, [id number], SEROTON, TEST F + T, T3R, THYGLOB AB, ESTRADIOL, TPO, SHBG, ESTRONE, INSULIN, PROG #### [facility] , #### T4F, TRISTEN, TSH3, A1C WTH eA, FILIBERTO, GLU, T3F #### [address] Automated eosinophil %Ordere d By: Delano Francis on 09-22-2024 Eosinophils/100 WBC (Bld) 1.7 % Normal . [facility] Comment on above: Performed By: #### D HEAS, LC T4, [id number], SEROTON, TEST F + T, T3R, THYGLOB AB, ESTRADIOL, TPO, SHBG, ESTRONE, INSULIN, PROG #### [facility] , #### T4F, TRISTEN, TSH3, A1C WTH eA, FILIBERTO, GLU, T3F #### [address] Automated eosinophil countOr dered By: Delano Francis on 09-22-2024 Eosinophils (Bld) [#/Vol] 0.1 10*3/uL Normal 0.0-0.45 [facility] Comment on above: Performed By: #### D HEAS, LC T4, [id number], SEROTON, TEST F + T, T3R, THYGLOB AB, ESTRADIOL, TPO, SHBG, ESTRONE, INSULIN, PROG #### [facility] , #### T4F, TRISTEN, TSH3, A1C WTH eA, FILIBERTO, GLU, T3F #### [facility] [address] Automated monocyte %Ordered By: Delano Francis on 09-22-2024 Monocytes/100 WBC (Bld) 8.7 % Normal . [facility] Comment on above: Performed By: #### D HEAS, LC T4, [id number], SEROTON, TEST F + T, T3R, THYGLOB AB, ESTRADIOL, TPO, SHBG, ESTRONE, INSULIN, PROG #### [facility] , #### T4F, TRISTEN, TSH3, A1C WTH eA, FILIBERTO, GLU, T3F #### [facility] [address] Automated neutrophil %Ordere d By: Delano Francis on 09-22-2024 Neutrophils/100 WBC (Bld) 63.7 % Normal . [facility] Comment on above: Performed By: #### D HEAS, LC T4, [id number], SEROTON, TEST F + T, T3R, THYGLOB AB, ESTRADIOL, TPO, SHBG, ESTRONE, INSULIN, PROG #### [facility] , #### T4F, TRISTEN, TSH3, A1C WTH eA, FILIBERTO, GLU, T3F #### [facility] [address] Basophils Auto (Bld) [#/Vol] Ordered By: Delano Francis on 09-22-2024 Basophils (Bld) [#/Vol] Automated basophil count 0.0-0.2 [facility] Basophils/100 WBC Auto (Bld) Ordered By: Delano Francis on 09-22-2024 Basophils/100 WBC (Bld) Automated basophil % . [facility] Calcium [Mass/volume] in Ser um or PlasmaOrdered By: Delano Francis on 09-22-2024 Calcium [Mass/Vol] 9.4 mg/dL Normal 8.6-10.3 [facility] Comment on above: Performed By: #### D HEAS, LC T4, [id number], SEROTON, TEST F + T, T3R, THYGLOB AB, ESTRADIOL, TPO, SHBG, ESTRONE, INSULIN, PROG #### [facility] , #### T4F, TRISTEN, TSH3, A1C WTH eA, FILIBERTO, GLU, T3F #### [facility] [address] Calcium [Mass/Vol] Calcium [Mass/volume ] in Serum or Plasma 8.6-10.3 [facility] Carbon dioxide, total [Moles /volume] in Serum or PlasmaOrdered By: Delano Francis on 09-22-2024 CO2 [Moles/Vol] 29.2 mmol/L Normal 21.0-31.0 [facility] Comment on above: Performed By: #### D VENITA, LC T4, [id number], SEROTON, TEST F + T, T3R, THYGLOB AB, ESTRADIOL, TPO, SHBG, ESTRONE, INSULIN, PROG #### [facility] , #### T4F, TRISTEN, TSH3, A1C WTH eA, FILIBERTO, GLU, T3F #### [place] [address] [place] CO2 [Moles/Vol] Carbon dioxide, tota l [Moles/volume] in Serum or Plasma 21.0-31.0 [facility] Chloride [Moles/volume] in S stevo or PlasmaOrdered By: Delano Francis on 09-22-2024 Chloride [Moles/Vol] 105 mmol/L Normal 98-107 [facility] Comment on above: Performed By: #### D HEAS, LC T4, [id number], SEROTON, TEST F + T, T3R, THYGLOB AB, ESTRADIOL, TPO, SHBG, ESTRONE, INSULIN, PROG #### [facility] , #### T4F, TRISTEN, TSH3, A1C WTH eA, FILIBERTO, GLU, T3F #### [facility] [address] [place] [address] [place] Chloride [Moles/Vol] Chloride [Moles/vol ume] in Serum or Plasma 98-107 [facility] Cholesterol [Mass/volume] in Serum or PlasmaOrdered By: Delano Francis on 09-22-2024 Cholesterol [Mass/Vol] 217 mg/dL High 140-200 [facility] Comment on above: Chol less than 200 m g/dl low riskChol 201-239 mg/dl borderline riskChol 240 mg/dl and greater high risk Result Comment: Chol less than 200 mg/dl low risk Chol 201-239 mg/dl borderline risk Chol 240 mg/dl and greater high risk Performed By: #### D HEAS, LC T4, [id number], SEROTON, TEST F + T, T3R, THYGLOB AB, ESTRADIOL, TPO, SHBG, ESTRONE, INSULIN, PROG #### [facility] , #### T4F, TRISTEN, TSH3, A1C WTH eA, FILIBERTO, GLU, T3F #### [address] Cholesterol [Mass/Vol] Cholesterol [Mass/volume] in Serum or Plasma High 140-200 [facility] Comment on above: Chol less than 200 m g/dl low riskChol 201-239 mg/dl borderline riskChol 240 mg/dl and greater high risk Cholesterol in HDL [Mass/vol ume] in Serum or PlasmaOrdered By: Delano Francis on 09-22-2024 Cholesterol in HDL [Mass/Vol] Serum or plasma high density lipoprotein (HDL) cholesterol measurement 23-92 [facility] Comment on above: HDL CHOL ATP-III CLA SSIFICATION Cardiovascular RiskHDL > or equal to 60 mg/dL LOWHDL < 40 mg/dL HIGH Cholesterol in LDL Calc [Mas s/Vol]Ordered By: Delano Francis on 09-22-2024 Cholesterol in LDL [Mass/Vol] 148 mg/dL High 0-100 [facility] Comment on above: LDL ATP III CLASSIFI CATIONLDL less than 100 mg/dL OptimalLDL 100-129 mg/dL Near or above optimalLDL 130-159 mg/dL Borderline highLDL 160-189 mg/dL HighLDL greater than 189 mg/dL Very high Cholesterol in LDL [Mass/Vol] Cholesterol in LDL [Mass/volume] in Serum or Plasma by calculation High 0-100 [facility] Comment on above: LDL ATP III CLASSIFI CATIONLDL less than 100 mg/dL OptimalLDL 100-129 mg/dL Near or above optimalLDL 130-159 mg/dL Borderline highLDL 160-189 mg/dL HighLDL greater than 189 mg/dL Very high Cholesterol in VLDL Calc [Ma ss/Vol]Ordered By: Delano Francis on 09-22-2024 Cholesterol in VLDL [Mass/Vol] 10 mg/dL [facility] Cholesterol in VLDL [Mass/Vol] Cholesterol in VLDL [Mass/volume] in Serum or Plasma by calculation [facility] Creatinine [Mass/volume] in Serum or PlasmaOrdered By: Delano Francis on 09-22-2024 Creatinine [Mass/Vol] 0.73 mg/dL Normal 0.60-1.20 [facility] Comment on above: Performed By: #### D VENITA, JOSSE T4, [id number], SEROTON, TEST F + T, T3R, THYGLOB AB, ESTRADIOL, TPO, SHBG, ESTRONE, INSULIN, PROG #### [facility] , #### T4F, TRISTEN, TSH3, A1C WTH eA, FILIBERTO, GLU, T3F #### [facility] [address] Creatinine [Mass/Vol] Creatinine [Mass/v olume] in Serum or Plasma 0.60-1.20 [facility] Employee Basic Metabolic [place] 09-22-2024 GFR/1.73 sq M.predicted MDRD (S/P/Bld) [Vol rate/Area] mL/min/{1.73_m2} Normal [facility] Comment on above: Performed By: #### D VENITA, LC T4, [id number], SEROTON, TEST F + T, T3R, THYGLOB AB, ESTRADIOL, TPO, SHBG, ESTRONE, INSULIN, PROG #### [facility] , #### T4F, TRISTEN, TSH3, A1C WTH eA, FILIBERTO, GLU, T3F #### [facility] [address] Employee Complete Blood Coun [facility] 09-22-2024 Mean Corpuscular HGB Conc 34.2 g/dL Normal 32.0-35.0 [facility] Comment on above: Performed By: #### D HEAS, LC T4, [id number], SEROTON, TEST F + T, T3R, THYGLOB AB, ESTRADIOL, TPO, SHBG, ESTRONE, INSULIN, PROG #### [facility] , #### T4F, TRISTEN, TSH3, A1C WTH eA, FILIBERTO, GLU, T3F #### [facility] [address] NRBC% 0.0 /100{WBC} Normal 0-0.5 [facility] Comment on above: Performed By: #### D HEAS, LC T4, [id number], SEROTON, TEST F + T, T3R, THYGLOB AB, ESTRADIOL, TPO, SHBG, ESTRONE, INSULIN, PROG #### [facility] , #### T4F, TRISTEN, TSH3, A1C WTH eA, FILIBERTO, GLU, T3F #### [facility] [address] Employee Lipid Profileon LDL Cholesterol,Calculated 148 mg/dL High 0-100 [facility] Comment on above: Result Comment: LDL ATP III CLASSIFICATION LDL less than 100 mg/dL Optimal LDL 100-129 mg/dL Near or above optimal LDL 130-159 mg/dL Borderline high LDL 160-189 mg/dL High LDL greater than 189 mg/dL Very high Performed By: #### D DANIELLEAS, LC T4, [id number], SEROTON, TEST F + T, T3R, THYGLOB AB, ESTRADIOL, TPO, SHBG, ESTRONE, INSULIN, PROG #### [facility] , #### T4F, TRISTEN, TSH3, A1C WTH eA, FILIBERTO, GLU, T3F #### [facility] [address] Triglyceride w/Reflex 52 mg/dL Normal 0-149 [...] Performed By: #### D HEAS, LC T4, [id number], SEROTON, TEST F + T, T3R, THYGLOB AB, ESTRADIOL, TPO, SHBG, ESTRONE, INSULIN, PROG #### [facility] , #### T4F, TRISTEN, TSH3, A1C WTH eA, FILIBERTO, GLU, T3F #### [address] VLDL CHOLESTEROL 10 mg/dL Normal [facility] Comment on above: Performed By: #### D DANIELLEAS, LC T4, [id number], SEROTON, TEST F + T, T3R, THYGLOB AB, ESTRADIOL, TPO, SHBG, ESTRONE, INSULIN, PROG #### [facility] , #### T4F, TRISTEN, TSH3, A1C WTH eA, FILIBERTO, GLU, T3F #### [address] Employee Thyroid Stim [place] [place] 09-22-2024 Employee Thyroid Stim [employer] 2.30 u[iU]/mL Normal 0.45-5.33 [facility] Comment on above: Result Comment: PERF ORMED BY: [place] [address] PATHOLOGIST MECHANICAL ARTIST JOSE GOEL M.D. Performed By: #### D HEAS, LC T4, [id number], SEROTON, TEST F + T, T3R, THYGLOB AB, ESTRADIOL, TPO, SHBG, ESTRONE, INSULIN, PROG #### [facility] , #### T4F, TRISTEN, TSH3, A1C WTH eA, FILIBERTO, GLU, T3F #### [address] Eosinophils Auto (Bld) [#/Vo l]Ordered By: Delano Francis on 09-22-2024 Eosinophils (Bld) [#/Vol] Automated eosinophil count 0.0-0.45 [facility] Eosinophils/100 WBC Auto (Bl d)Ordered By: Delano Francis on 09-22-2024 Eosinophils/100 WBC (Bld) Automated eosinophil % . [facility] Erythrocyte distribution wid th Auto (RBC) [Ratio]Ordered By: Delano Francis on 09-22-2024 Erythrocyte distribution width (RBC) [Ratio] Erythrocyte distribution width [Ratio] by Automated count 11.9-15.3 [facility] Erythrocyte distribution wid th [Ratio] by Automated countOrdered By: Delano Francis on 09-22-2024 Erythrocyte distribution width (RBC) [Ratio] 13.2 % Normal 11.9-15.3 [facility] Comment on above: Performed By: #### D HEAS, LC T4, [id number], SEROTON, TEST F + T, T3R, THYGLOB AB, ESTRADIOL, TPO, SHBG, ESTRONE, INSULIN, PROG #### [facility] , #### T4F, TRISTEN, TSH3, A1C WTH eA, FILIBERTO, GLU, T3F #### [facility] [address] [place] [address] [place] Erythrocytes [#/volume] in B lood by Automated countOrdered By: Delano Francis on 09-22-2024 RBC (Bld) [#/Vol] 3.91 10*6/uL Normal 3.60-5.00 [facility] Comment on above: Performed By: #### D HEAS, LC T4, [id number], SEROTON, TEST F + T, T3R, THYGLOB AB, ESTRADIOL, TPO, SHBG, ESTRONE, INSULIN, PROG #### [facility] , #### T4F, TRISTEN, TSH3, A1C WTH eA, FILIBERTO, GLU, T3F #### [facility] [address] [place] [address] [place] Glucose [Mass/volume] in Ser um or PlasmaOrdered By: Delano Francis on 09-22-2024 Glucose [Mass/Vol] 83 mg/dL Normal 70-100 [facility] Comment on above: Performed By: #### D HEAS, LC T4, [id number], SEROTON, TEST F + T, T3R, THYGLOB AB, ESTRADIOL, TPO, SHBG, ESTRONE, INSULIN, PROG #### [facility] , #### T4F, TRISTEN, TSH3, A1C WTH eA, FILIBERTO, GLU, T3F #### [address] Glucose [Mass/Vol] Glucose [Mass/volume ] in Serum or Plasma 70-100 [facility] Hematocrit Auto (Bld) [Volum e fraction]Ordered By: Delano Francis on 09-22-2024 Hematocrit (Bld) [Volume fraction] Hematocrit [Volume Fraction] of Blood by Automated count 34.0-46.4 [facility] Hematocrit [Volume Fraction] of Blood by Automated countOrdered By: Delano Francis on 09-22-2024 Hematocrit (Bld) [Volume fraction] 35.9 % Normal 34.0-46.4 [facility] Comment on above: Performed By: #### D VENITA, LC T4, [id number], SEROTON, TEST F + T, T3R, THYGLOB AB, ESTRADIOL, TPO, SHBG, ESTRONE, INSULIN, PROG #### [facility] , #### T4F, TRISTEN, TSH3, A1C WTH eA, FILIBERTO, GLU, T3F #### [place] [address] [place] Hemoglobin [Mass/volume] in BloodOrdered By: Delano Francis on 09-22-2024 Hemoglobin (Bld) [Mass/Vol] 12.3 g/dL Normal 11.8-15.4 [facility] Comment on above: Performed By: #### D HEAS, LC T4, [id number], SEROTON, TEST F + T, T3R, THYGLOB AB, ESTRADIOL, TPO, SHBG, ESTRONE, INSULIN, PROG #### [facility] , #### T4F, TRISTEN, TSH3, A1C WTH eA, FILIBERTO, GLU, T3F #### [address] Hemoglobin (Bld) [Mass/Vol] Hemoglobin [Mass/volume] in Blood 11.8-15.4 [facility] Leukocytes [#/volume] correc calvin for nucleated erythrocytes in Blood by Automated counOrdered By: Delano Francis on 09-22-2024 WBC corrected for nucl RBC Auto (Bld) [#/Vol] 5.1 10*3/uL 3.8-11.6 [facility] WBC corrected for nucl RBC Auto (Bld) [#/Vol] Leukocytes [#/volume] corrected for nucleated erythrocytes in Blood by Automated coun 3.8-11.6 [facility] Leukocytes [#/volume] in Blo od by Automated countOrdered By: Delano Francis on 09-22-2024 WBC (Bld) [#/Vol] 5.1 10*3/uL Normal 3.8-11.6 [facility] Comment on above: Performed By: #### D DANIELLEAS, LC T4, [id number], SEROTON, TEST F + T, T3R, THYGLOB AB, ESTRADIOL, TPO, SHBG, ESTRONE, INSULIN, PROG #### [facility] , #### T4F, TRISTEN, TSH3, A1C WTH eA, FILIBERTO, GLU, T3F #### [address] Lymphocytes Auto (Bld) [#/Vo l]Ordered By: Delano Francis on 09-22-2024 Lymphocytes (Bld) [#/Vol] Lymphocytes [#/volume] in Blood by Automated count .00-.8 [facility] Lymphocytes [#/volume] in Bl ood by Automated countOrdered By: Delano Francis on 09-22-2024 Lymphocytes (Bld) [#/Vol] 1.3 10*3/uL Normal 1.00-4.8 [facility] Comment on above: Performed By: #### D HEAS, LC T4, [id number], SEROTON, TEST F + T, T3R, THYGLOB AB, ESTRADIOL, TPO, SHBG, ESTRONE, INSULIN, PROG #### [facility] , #### T4F, TRISTEN, TSH3, A1C WTH eA, FILIBERTO, GLU, T3F #### [facility] [address] Lymphocytes/100 WBC Auto (Bl d)Ordered By: Delano Francis on 09-22-2024 Lymphocytes/100 WBC (Bld) Lymphocytes/100 leukocytes in Blood by Automated count . [facility] Lymphocytes/100 leukocytes i n Blood by Automated countOrdered By: Delano Francis on 09-22-2024 Lymphocytes/100 WBC (Bld) 25.3 % Normal . [facility] Comment on above: Performed By: #### D HEAS, LC T4, [id number], SEROTON, TEST F + T, T3R, THYGLOB AB, ESTRADIOL, TPO, SHBG, ESTRONE, INSULIN, PROG #### [facility] , #### T4F, TRISTEN, TSH3, A1C WTH eA, FILIBERTO, GLU, T3F #### [facility] [address] [place] [address] MCH Auto (RBC) [Entitic mass ]Ordered By: Delano Francis on 09-22-2024 MCH (RBC) [Entitic mass] MCH [Entitic mass] by Automated count 24.7-34.3 [facility] MCH [Entitic mass] by Automa clavin countOrdered By: Delano Francis on 09-22-2024 MCH (RBC) [Entitic mass] 31.4 pg Normal 24.7-34.3 [facility] Comment on above: Performed By: #### D HEAS, LC T4, [id number], SEROTON, TEST F + T, T3R, THYGLOB AB, ESTRADIOL, TPO, SHBG, ESTRONE, INSULIN, PROG #### [facility] , #### T4F, TRISTEN, TSH3, A1C WTH eA, FILIBERTO, GLU, T3F #### [facility] [address] [place] [address] MCHC Auto (RBC) [Mass/Vol]Or dered By: Delano Francis on 09-22-2024 MCHC (RBC) [Mass/Vol] 34.2 g/dL 32.0-35.0 [facility] MCHC (RBC) [Mass/Vol] MCHC [Mass/volume] by Automated count 32.0-35.0 [facility] MCV Auto (RBC) [Entitic vol] Ordered By: Delano Francis on 09-22-2024 MCV (RBC) [Entitic vol] MCV [Entitic vol ume] by Automated count 80-100 [facility] MCV [Entitic volume] by Auto mated countOrdered By: Delano Francis on 09-22-2024 MCV (RBC) [Entitic vol] 91.7 fL Normal 80-100 [facility] Comment on above: Performed By: #### D HEAS, LC T4, [id number], SEROTON, TEST F + T, T3R, THYGLOB AB, ESTRADIOL, TPO, SHBG, ESTRONE, INSULIN, PROG #### [facility] , #### T4F, TRISTEN, TSH3, A1C WTH eA, FILIBERTO, GLU, T3F #### [facility] [id number] [address] Monocytes Auto (Bld) [#/Vol] Ordered By: Delano Francis on 09-22-2024 Monocytes (Bld) [#/Vol] Automated blood monocyte count 0.0-0.8 [facility] Monocytes/100 WBC Auto (Bld) Ordered By: Delano Francis on 09-22-2024 Monocytes/100 WBC (Bld) Automated monocyte % . [facility] Neutrophils Auto (Bld) [#/Vo l]Ordered By: Delano Francis on 09-22-2024 Neutrophils (Bld) [#/Vol] Neutrophils [#/volume] in Blood by Automated count 1.8-7.7 [facility] Neutrophils [#/volume] in Bl ood by Automated countOrdered By: Delano Francis on 09-22-2024 Neutrophils (Bld) [#/Vol] 3.2 10*3/uL Normal 1.8-7.7 [facility] Comment on above: Performed By: #### D HEAS, LC T4, [id number], SEROTON, TEST F + T, T3R, THYGLOB AB, ESTRADIOL, TPO, SHBG, ESTRONE, INSULIN, PROG #### [facility] , #### T4F, TRISTEN, TSH3, A1C WTH eA, FILIBERTO, GLU, T3F #### [facility] [address] [place] [address] [place] Neutrophils/100 WBC Auto (Bl d)Ordered By: Delano Francis on 09-22-2024 Neutrophils/100 WBC (Bld) Automated neutrophil % . [facility] No Panel InformationOrdered By: Delano Francis on 09-22-2024 Estimated GFR (CKD-EPI) > 60.0 mL/Min [facility] Creatinine Clearance (Chem N/A [facility] Nucleated erythrocytes [Pres ence] in Blood by Automated countOrdered By: Delano Francis on 09-22-2024 Nucleated RBC Auto Ql (Bld) 0.0 /100{WBC} 0-0.5 [facility] Nucleated RBC Auto Ql (Bld) Nucleated erythrocytes [Presence] in Blood by Automated count 0-0.5 [facility] Platelet mean volume Auto (B ld) [Entitic vol]Ordered By: Delano Francis on 09-22-2024 Platelet mean volume (Bld) [Entitic vol] Platelet mean volume [Entitic volume] in Blood by Automated count 6.3-10.7 [facility] Platelet mean volume [Entiti c volume] in Blood by Automated countOrdered By: Delano Francis on 09-22-2024 Platelet mean volume (Bld) [Entitic vol] 7.3 fL Normal 6.3-10.7 [facility] Comment on above: Performed By: #### D HEAS, T4, [id number], SEROTON, TEST F + T, T3R, THYGLOB AB, ESTRADIOL, TPO, SHBG, ESTRONE, INSULIN, PROG #### [facility] , #### T4F, TRISTEN, TSH3, A1C WTH eA, FILIBERTO, GLU, T3F #### [facility] [address] [place] [address] [place] Platelets Auto (Bld) [#/Vol] Ordered By: Delano Francis on 09-22-2024 Platelets (Bld) [#/Vol] Platelets [#/vol ume] in Blood by Automated count 150-450 [facility] Platelets [#/volume] in Bloo d by Automated countOrdered By: Delano Francis on 09-22-2024 Platelets (Bld) [#/Vol] 328 10*3/uL Normal 150-450 [facility] Comment on above: Performed By: #### D HEAS, LC T4, [id number], SEROTON, TEST F + T, T3R, THYGLOB AB, ESTRADIOL, TPO, SHBG, ESTRONE, INSULIN, PROG #### [facility] , #### T4F, TRISTEN, TSH3, A1C WTH eA, FILIBERTO, GLU, T3F #### [facility] [address] [place] [id number] [place] Potassium [Moles/volume] in Serum or PlasmaOrdered By: Delano Francis on 09-22-2024 Potassium [Moles/Vol] 4.5 mmol/L Normal 3.5-5.1 [facility] Comment on above: Performed By: #### D HEAS, LC T4, [id number], SEROTON, TEST F + T, T3R, THYGLOB AB, ESTRADIOL, TPO, SHBG, ESTRONE, INSULIN, PROG #### [facility] , #### T4F, TRISTEN, TSH3, A1C WTH eA, FILIBERTO, GLU, T3F #### [facility] [address] [place] [address] [place] Potassium [Moles/Vol] Potassium [Moles/v olume] in Serum or Plasma 3.5-5.1 [facility] RBC Auto (Bld) [#/Vol]Ordere d By: Delano Francis on 09-22-2024 RBC (Bld) [#/Vol] Erythrocytes [#/volu me] in Blood by Automated count 3.60-5.00 [facility] Serum or plasma anion gap de terminationOrdered By: Delano Francis on 09-22-2024 Anion gap [Moles/Vol] 8.3 mmol/L Normal 6.0-15.0 [facility] Comment on above: Performed By: #### D HEAS, LC T4, [id number], SEROTON, TEST F + T, T3R, THYGLOB AB, ESTRADIOL, TPO, SHBG, ESTRONE, INSULIN, PROG #### [facility] , #### T4F, TRISTEN, TSH3, A1C WTH eA, FILIBERTO, GLU, T3F #### [address] Anion gap [Moles/Vol] Serum or plasma an ion gap determination 6.0-15.0 [facility] Serum or plasma high density lipoprotein (HDL) cholesterol measurementOrdered By: Delano Francis on 09-22-2024 Cholesterol in HDL [Mass/Vol] 59 mg/dL Normal 23-92 [facility] Comment on above: HDL CHOL ATP-III CLA SSIFICATION Cardiovascular RiskHDL > or equal to 60 mg/dL LOWHDL < 40 mg/dL HIGH Result Comment: HDL CHOL ATP-III CLASSIFICATION Cardiovascular Risk HDL > or equal to 60 mg/dL LOW HDL < 40 mg/dL HIGH Performed By: #### D HEAS, LC T4, [id number], SEROTON, TEST F + T, T3R, THYGLOB AB, ESTRADIOL, TPO, SHBG, ESTRONE, INSULIN, PROG #### [facility] , #### T4F, TRISTEN, TSH3, A1C WTH eA, FILIBERTO, GLU, T3F #### [address] Serum or plasma total choles terol/high density lipoprotein (HDL) cholesterol mass ratOrdered By: Delano Francis on 09-22-2024 Cholesterol.total/Alivia sterol in HDL [Mass ratio] 3.7 {ratio} Normal <5.0 [facility] Comment on above: Performed By: #### D HEAS, LC T4, [id number], SEROTON, TEST F + T, T3R, THYGLOB AB, ESTRADIOL, TPO, SHBG, ESTRONE, INSULIN, PROG #### [facility] , #### T4F, TRISTEN, TSH3, A1C WTH eA, FILIBERTO, GLU, T3F #### [address] [place] [address] [facility] Cholesterol.total/Alivia sterol in HDL [Mass ratio] Serum or plasma total cholesterol/high density lipoprotein (HDL) cholesterol mass rat <5.0 [facility] Sodium [Moles/volume] in Ser um or PlasmaOrdered By: Delano Francis on 09-22-2024 Sodium [Moles/Vol] 138 mmol/L Normal 136-145 [facility] Comment on above: Performed By: #### D HEAS, LC T4, [id number], SEROTON, TEST F + T, T3R, THYGLOB AB, ESTRADIOL, TPO, SHBG, ESTRONE, INSULIN, PROG #### [facility] , #### T4F, TRISTEN, TSH3, A1C WTH eA, FILIBERTO, GLU, T3F #### [facility] [address] [place] [id number] [facility] Sodium [Moles/Vol] Sodium [Moles/volume ] in Serum or Plasma 136-145 [facility] Thyrotropin [Units/volume] i n Serum or PlasmaOrdered By: Delano Francis on 09-22-2024 TSH Qn 2.30 m[IU]/L 0.45-5.33 [facility] TSH Qn Thyrotropin [Units/volume] in Serum or Plasma 0.45-5.33 [facility] Triglyceride [Mass/volume] i n Serum or PlasmaOrdered By: Delano Francis on 09-22-2024 Triglyceride [Mass/Vol] 52 mg/dL 0-149 [facility] Comment on above: TRIG ATP III CLASSIF ICATIONTRIG less than 150 mg/dL NormalTRIG 150-199 mg/dL Borderline highTRIG 200-500 mg/dL High TRIG greater than 500 mg/dL Very highStandard traceable to the Center for Disease Conrtrol and Prevention (CDC) test method. Triglyceride [Mass/Vol] Triglyceride [Mass/volume] in Serum or Plasma 0-149 [facility] Comment on above: TRIG ATP III CLASSIF ICATIONTRIG less than 150 mg/dL NormalTRIG 150-199 mg/dL Borderline highTRIG 200-500 mg/dL High TRIG greater than 500 mg/dL Very highStandard traceable to the Center for Disease Conrtrol and Prevention (CDC) test method. Urea nitrogen [Mass/volume] in Serum or PlasmaOrdered By: Delano Francis on 09-22-2024 Urea nitrogen [Mass/Vol] 9 mg/dL Normal 06-23 [facility] Comment on above: Performed By: #### D HESUE, JOSSE T4, [id number], SEROTON, TEST F + T, T3R, THYGLOB AB, ESTRADIOL, TPO, SHBG, ESTRONE, INSULIN, PROG #### [facility] , #### T4F, TRISTEN, TSH3, A1C WTH eA, FILIBERTO, GLU, T3F #### [facility] [address] Urea nitrogen [Mass/Vol] Urea nitrogen [Mass/volume] in Serum or Plasma 06-23 [facility] WBC Auto (Bld) [#/Vol]Ordere d By: Delano Francis on 09-22-2024 WBC (Bld) [#/Vol] Leukocytes [#/volume ] in Blood by Automated count 3.8-11.6 [facility] IGP,APTIMA HPV,AGE GDLNon AGE GDLN ACOG TESTING Note . [facility] Comment on above: TESTS RESULT FLAG UN ITS REF RANGE LAB Clinician Provided Cytology Information Source.............Cervix;Endocervix No. of containers..01 ThinPrep Vial Age Algo ACOG Lara... 30 01 FLAG LEGEND: L-Low Normal,H-High Normal,LL-Alert Low,HH-Alert High <-Panic Low,>-Panic High,A-Abnormal,AA-Critical Abnormal Performed at: 01 =[address] [place] [address] Ilana Heath MD, HPV APTIMA Negative Negative [facility] Comment on above: This nucleic acid am plification test detects fourteen high- risk HPV types (16,18,31,33,35,39,45,51,52,56,58,59,66,68) without differentiation. Performed at: =[address] [id number] Balance Recesser: Ilana Heath MD, Phone: [phone] Performed at: [address] [id number] Balance Recesser: Ilana Heath MD, Phone: [phone] IGP, APTIMA HPV, RFX 16/18,45 Note . [facility] Comment on above: TESTS RESULT FLAG UN ITS REF RANGE LAB DIAGNOSIS: 02 NEGATIVE FOR INTRAEPITHELIAL LESION OR MALIGNANCY. Specimen adequacy: 02 Satisfactory for evaluation. No endocervical component is identified. Performed by: 02 Chema Camargo, Dispenser Operator (ASCP) . 02 Note: Note 02 [...] <-Panic Low,>-Panic High,A-Abnormal,AA-Critical Abnormal Performed at: [address] [id number] Ilana Heath MD, BRUSH-SPATULA CERVIX ENDOCERVIX CLINISYNC [facility] 1,25 Dihydroxy Vit D Calcitr olon 01-07-2024 1,25 Dihydroxy Vit D Calcitrol 56.6 pg/mL Normal 24.8-81.5 [facility] Comment on above: Result Comment: Perf ormed at: - [facility] [address] [id number] Balance Recesser: Quinton Wolf MD, Phone: [phone] Performed By: #### JOSSE SMITH T4, [id number], SEROTON, TEST F + T, T3R, THYGLOB AB, ESTRADIOL, TPO, SHBG, ESTRONE, INSULIN, PROG #### [facility] , #### T4F, TRISTEN, TSH3, A1C WTH eA, FILIBERTO, GLU, T3F #### [facility] [address] [place] [address] [place] A1C with Estimated Average G destiny 01-07-2024 Glucose [Mass/Vol] 105 mg/dL Normal [facility] Comment on above: Result Comment: PERF ORMED BY: [facility] [address] [place] [address] PATHOLOGIST MECHANICAL ARTIST JOSE GOEL M.D. Performed By: #### JOSSE SMITH T4, [id number], SEROTON, TEST F + T, T3R, THYGLOB AB, ESTRADIOL, TPO, SHBG, ESTRONE, INSULIN, PROG #### [facility] , #### T4F, TRISTEN, TSH3, A1C WTH eA, FILIBERTO, GLU, T3F #### [address] Antithyroglobulin Abon 01-07 Antithyroglobulin Ab <1.0 Normal 0.0-0.9 [facility] Comment on above: Result Comment: Thyr oglobulin Antibody measured by [email or web address] Methodology Performed at: [address] [id number] Balance Recesser: Baudilio Leyva PhD, Phone: [phone] Performed By: #### D VENITA, LC T4, [id number], SEROTON, TEST F + T, T3R, THYGLOB AB, ESTRADIOL, TPO, SHBG, ESTRONE, INSULIN, PROG #### [facility] , #### T4F, TRISTEN, TSH3, A1C WTH eA, FILIBERTO, GLU, T3F #### [address] Cortisolon 01-07-2024 Cortisol 6.8 ug/dL Normal [facility] Comment on above: Result Comment: Refe rence range: AM 6 - 24 ug/dl PM <10 ug/dl [facility] credit correspondence clerk and method: HELGA UNICEL DXI, POLYCLONAL ANTIBODY CORTISOL ASSAY. PERFORMED BY: [place] [address] PATHOLOGIST MECHANICAL ARTIST JOSE GOEL M.D. Performed By: #### Adria NATHAN, LC T4, [id number], SEROTON, TEST F + T, T3R, THYGLOB AB, ESTRADIOL, TPO, SHBG, ESTRONE, INSULIN, PROG #### [facility] , #### T4F, TRISTEN, TSH3, A1C WTH eA, FILIBERTO, GLU, T3F #### [address] Dehydroepiandrosterone Sulfa teOrdered By: Deisy Villar on 01-07-2024 Dehydroepiandrosterone Sulfate 174.0 ug/dL Normal 84.8-378.0 [facility] Comment on above: Performed By: #### D DANIELLEAS, LC T4, [id number], SEROTON, TEST F + T, T3R, THYGLOB AB, ESTRADIOL, TPO, SHBG, ESTRONE, INSULIN, PROG #### [facility] , #### T4F, TRISTEN, TSH3, A1C WTH eA, FILIBERTO, GLU, T3F #### [facility] [address] [place] [address] [place] Estradiolon 01-07-2024 Estradiol 300.0 pg/mL Normal . [facility] Comment on above: Result Comment: Adul t Female Range Follicular phase 12.5 - 166.0 Ovulation phase 85.8 - 498.0 Luteal phase 43.8 - 211.0 Postmenopausal <6.0 - 54.7 1st trimester 215.0 - >4300.0 Elías ECLIA methodology Performed By: #### D VENITA, LC T4, [id number], SEROTON, TEST F + T, T3R, THYGLOB AB, ESTRADIOL, TPO, SHBG, ESTRONE, INSULIN, PROG #### [facility] , #### T4F, TRISTEN, TSH3, A1C WTH eA, FILIBERTO, GLU, T3F #### [facility] [address] [place] [address] [place] Estrone, Serumon 01-07-2024 Estrone, Serum 46 pg/mL Normal 27-231 [facility] Comment on above: Result Comment: Rang e Adult (Premenopausal) 27 - 231 Menstrual Cycle (1-10 days) 19 - 149 Menstrual Cycle (11-20 days) 32 - 176 Menstrual Cycle (21-30 days) 37 - 200 Performed at: [address] [id number] Balance Recesser: Quinton Wolf MD, Phone: [phone] Performed By: #### D HEAS, LC T4, [id number], SEROTON, TEST F + T, T3R, THYGLOB AB, ESTRADIOL, TPO, SHBG, ESTRONE, INSULIN, PROG #### [facility] , #### T4F, TRISTEN, TSH3, A1C WTH eA, FILIBERTO, GLU, T3F #### [facility] [address] [place] [address] [place] Ferritin [Mass/volume] in Se rum or PlasmaOrdered By: Deisy Villar on 01-07-2024 Ferritin [Mass/Vol] 44.8 ng/mL Normal 11.0-306.8 [facility] Comment on above: Performed By: #### D HEAS, LC T4, [id number], SEROTON, TEST F + T, T3R, THYGLOB AB, ESTRADIOL, TPO, SHBG, ESTRONE, INSULIN, PROG #### [facility] , #### T4F, TRISTEN, TSH3, A1C WTH eA, FILIBERTO, GLU, T3F #### [facility] [address] Free testosterone measuremen t by LC-MS/MSOrdered By: Deisy Villar on 01-07-2024 Testosterone Free [Mass/Vol] 0.3 pg/mL 0.0-4.2 [facility] Comment on above: Performed at: [address] [id number] Director: Baudilio Lyeva PhD, Phone: [phone] at: - [facility] [address] [id number] Director: Quinton Wolf MD, Phone: [phone] Glucose [Mass/volume] in Ser um or PlasmaOrdered By: Deisy Villar on 01-07-2024 Glucose [Mass/Vol] 84 mg/dL Normal 70-100 [facility] Comment on above: ADA recommended refe rence rangeRandom Glucose Reference Range is dependent on time and content of last meal. Glucose of more than 200 mg/dL in a nonstressed, ambulatory subject supports the diagnosis of Diabetes Mellitus. Result Comment: [place] om Glucose Reference Range is dependent on time and content of last meal. Glucose of more than 200 mg/dL in a nonstressed, ambulatory subject supports the diagnosis of Diabetes Mellitus. ADA recommended reference range Performed By: #### D HEAS, LC T4, [id number], SEROTON, TEST F + T, T3R, THYGLOB AB, ESTRADIOL, TPO, SHBG, ESTRONE, INSULIN, PROG #### [facility] , #### T4F, TRISTEN, TSH3, A1C WTH eA, FILIBERTO, GLU, T3F #### [facility] [address] Glucose mean value [Mass/vol ume] in Blood Estimated from glycated hemoglobinOrdered By: Deisy Villar on 01-07-2024 Average glucose Estimated from glycated hemoglobin (Bld) [Mass/Vol] 105 mg/dL [facility] Hemoglobin A1c percentageOrd ered By: Deisy Villar on 01-07-2024 HbA1c (Bld) [Mass fraction] 5.3 % Normal 4.3-5.6 [facility] Comment on above: Increased risk for d iabetes: 5.7 - 6.4diabetes: >6.4glycemic control for adults with diabetes: <7.0 Result Comment: Incr eased risk for diabetes: 5.7 - 6.4 diabetes: >6.4 glycemic control for adults with diabetes: <7.0 Performed By: #### D VENITA, LC T4, [id number], SEROTON, TEST F + T, T3R, THYGLOB AB, ESTRADIOL, TPO, SHBG, ESTRONE, INSULIN, PROG #### [facility] , #### T4F, TRISTEN, TSH3, A1C WTH eA, FILIBERTO, GLU, T3F #### [facility] [address] [place] [address] Insulinon 01-07-2024 Insulin 4.5 u[iU]/mL Normal 2.6-24.9 [facility] Comment on above: Result Comment: Perf ormed at: - [facility] [address] [id number] Balance Recesser: Baudilio Leyva PhD, Phone: [phone] Performed By: #### D HEAS, LC T4, [id number], SEROTON, TEST F + T, T3R, THYGLOB AB, ESTRADIOL, TPO, SHBG, ESTRONE, INSULIN, PROG #### [facility] , #### T4F, TRISTEN, TSH3, A1C WTH eA, FILIBERTO, GLU, T3F #### [facility] [address] Lab Alie Thyroxine (T4)on T4 [Mass/Vol] 8.2 ug/dL Normal 4.5-12.0 [facility] Comment on above: Performed By: #### D HEAS, LC T4, [id number], SEROTON, TEST F + T, T3R, THYGLOB AB, ESTRADIOL, TPO, SHBG, ESTRONE, INSULIN, PROG #### [facility] , #### T4F, TRISTEN, TSH3, A1C WTH eA, FILIBERTO, GLU, T3F #### [facility] [address] No Panel InformationOrdered By: Deisy Villar on 01-07-2024 Free Thyroxine (T4) Direct 8.2 ug/dL 4.5-12.0 [facility] Reverse Triiodothyronine (T3) 18.9 ng/dL 9.2-24.1 [facility] Comment on above: This test was develo ped and its performance characteristicsdetermined by [employer]. It has not been cleared orapproved by the Food and Drug Administration.Performed at: [address] [id number] Director: Quinton Wolf MD, Phone: [phone] Sex Hormone Binding Globulin 95.4 nmol/L 24.6-122.0 [facility] Comment on above: Performed at: [address] [id number] Director: Baudilio Leyva PhD, Phone: [phone] Plasma serotonin measurement (mass/volume)Ordered By: Deisy Villar on 01-07-2024 Serotonin (P) [Mass/Vol] 71 ng/mL 31-207 [facility] Comment on above: This test was develo ped and its performance characteristicsdetermined by [employer]. It has not been cleared orapproved by the Food and Drug Administration.Performed at: [facility] [place], [place] [id number] Director: Quinton Wolf MD, Phone: [phone] Progesteroneon 01-07-2024 Progesterone 0.2 ng/mL Normal . [facility] Comment on above: Result Comment: Foll icular phase 0.1 - 0.9 Luteal phase 1.8 - 23.9 Ovulation phase 0.1 - 12.0 First trimester 11.0 - 44.3 Second trimester 25.4 - 83.3 Third trimester 58.7 - 214.0 Postmenopausal 0.0 - 0.1 Performed By: #### D JOSSE NATHAN T4, [id number], SEROTON, TEST F + T, T3R, THYGLOB AB, ESTRADIOL, TPO, SHBG, ESTRONE, INSULIN, PROG #### [facility] , #### T4F, TRISTEN, TSH3, A1C WTH eA, FILIBERTO, GLU, T3F #### [facility] [address] Random cortisol measurementO rdered By: Deisy Villar on 01-07-2024 Cortisol [Mass/Vol] 6.8 ug/dL [facility] Comment on above: [facility] credit correspondence clerk and method:Zinko[employer]EL DXI, POLYCLONAL ANTIBODY CORTISOL ASSAY.Reference range: AM 6 - 24 ug/dl PM <10 ug/dl Serotonin, Serumon 4 Serotonin, Serum 71 ng/mL Normal 31-207 [facility] Comment on above: Result Comment: This test was developed and its performance characteristics determined by [employer]. It has not been cleared or approved by the Food and Drug Administration. Performed at: [facility] [address] [place], [place] [id number] Balance Recesser: Quinton Wolf MD, Phone: [phone] PERFORMED BY: [facility] [address] [place] [address] PATHOLOGIST MECHANICAL ARTIST JOSE GOEL M.D. Performed By: #### D JOSSE NATHAN T4, [id number], SEROTON, TEST F + T, T3R, THYGLOB AB, ESTRADIOL, TPO, SHBG, ESTRONE, INSULIN, PROG #### [facility] , #### T4F, TRISTEN, TSH3, A1C WTH eA, FILIBERTO, GLU, T3F #### [facility] [address] Serum estrone measurementOrd ered By: Deisy Villar on 01-07-2024 E1 [Mass/Vol] 46 pg/mL 27-231 [facility] Comment on above: Range Adult (Premeno pausal) 27 - 231 Menstrual Cycle (1-10 days) 19 - 149 Menstrual Cycle (11-20 days) 32 - 176 Menstrual Cycle (21-30 days) 37 - 200Performed at: [employer] - [facility] [address] [id number] Director: Quinton Wolf MD, Phone: [phone] Serum or plasma calcitriol m easurement (mass/volume)Ordered By: Deisy Villar on 01-07-2024 1,25-dihydroxyvitamin D3 [Mass/Vol] 56.6 pg/mL 24.8-81.5 [facility] Comment on above: Performed at: [employer] [address] [id number] Director: Quinton Wolf MD, Phone: [phone] Serum or plasma estradiol (E 2) measurement (mass/volume)Ordered By: Deisy Villar on 01-07-2024 E2 [Mass/Vol] 300.0 pg/mL . [facility] Comment on above: Adult Female Range F ollicular phase 12.5 - 166.0 Ovulation phase 85.8 - 498.0 Luteal phase 43.8 - 211.0 Postmenopausal <6.0 - 54.7 1st trimester 215.0 - >4300.0Roche ECLIA methodology Serum or plasma insulin kevin urement (units/volume)Ordered By: Deisy Villar on 01-07-2024 Insulin Qn 4.5 u[iU]/mL 2.6-24.9 [facility] Comment on above: Performed at: [employer] [address] [id number] Director: Baudilio Leyva PhD, Phone: [phone] Serum or plasma progesterone measurement (mass/volume)Ordered By: Deisy Villar on 01-07-2024 Progesterone [Mass/Vol] 0.2 ng/mL . [facility] Comment on above: Follicular phase 0.1 - 0.9 Luteal phase 1.8 - 23.9 Ovulation phase 0.1 - 12.0 First trimester 11.0 - 44.3 Second trimester 25.4 - 83.3 Third trimester 58.7 - 214.0 Postmenopausal 0.0 - 0.1 Serum or plasma thyroglobuli n antibody assay (units/volume)Ordered By: Deisy Villar on 01-07-2024 Thyroglobulin Ab Qn [IU]/mL 0.0-0.9 [facility] Comment on above: Thyroglobulin Antibo dy measured by [email or web address] at: [email or web address] [address] [id number] Director: Baudilio Leyva PhD, Phone: [phone] Serum or plasma thyroperoxid ase antibody assay (units/volume)Ordered By: Deisy Villar on 01-07-2024 TPO Ab Qn [IU]/mL 0-34 [facility] Comment on above: Performed at: [employer] [address] [id number] Director: Baudilio Leyva PhD, Phone: [phone] Sex Hormone Binding Globulin on 01-07-2024 Sex Hormone Binding Globulin 95.4 Normal 24.6-122.0 [facility] Comment on above: Result Comment: Perf ormed at: [email or web address] [address] [id number] Balance Recesser: Baudilio Leyva PhD, Phone: [phone] Performed By: #### D HEAS, LC T4, [id number], SEROTON, TEST F + T, T3R, THYGLOB AB, ESTRADIOL, TPO, SHBG, ESTRONE, INSULIN, PROG #### [facility] , #### T4F, TRISTEN, TSH3, A1C WTH eA, FILIBERTO, GLU, T3F #### [place] [address] [place] Testosterone Free and TotalO rdered By: Deisy Villar on 01-07-2024 Testosterone [Mass/Vol] 16 ng/dL Normal 8-60 [facility] Comment on above: Performed By: #### D HEAS, LC T4, [id number], SEROTON, TEST F + T, T3R, THYGLOB AB, ESTRADIOL, TPO, SHBG, ESTRONE, INSULIN, PROG #### [facility] , #### T4F, TRISTEN, TSH3, A1C WTH eA, FILIBERTO, GLU, T3F #### [facility] [address] [place] [address] [place] Testosterone Free and Totalo n 01-07-2024 Testosterone,Free 0.3 pg/mL Normal 0.0-4.2 [facility] Comment on above: Result Comment: Perf ormed at: [facility] [employer]fm[address] [id number] Balance Recesser: Baudilio Leyva PhD, Phone: [phone] Performed at: [facility] Last[employer] [id number] Balance Recesser: Quinton Wolf MD, Phone: [phone] Performed By: #### D VENITA, LC T4, [id number], SEROTON, TEST F + T, T3R, THYGLOB AB, ESTRADIOL, TPO, SHBG, ESTRONE, INSULIN, PROG #### [facility] , #### T4F, TRISTEN, TSH3, A1C WTH eA, FILIBERTO, GLU, T3F #### [facility] [address] Thyroid Peroxidase Antibodie son 01-07-2024 Thyroid Peroxidase Antibodies <9 Normal 0-34 [facility] Comment on above: Result Comment: Perf ormed at: [facility] Last[employer]31 [address] [id number] Balance Recesser: Baudilio Leyva PhD, Phone: [phone] Performed By: #### D HEAS, LC T4, [id number], SEROTON, TEST F + T, T3R, THYGLOB AB, ESTRADIOL, TPO, SHBG, ESTRONE, INSULIN, PROG #### [facility] , #### T4F, TRISTEN, TSH3, A1C WTH eA, FILIBERTO, GLU, T3F #### [facility] [address] [place] [address] Thyrotropin [Units/volume] i n Serum or PlasmaOrdered By: Deisy Villar on 01-07-2024 TSH Qn 1.80 m[IU]/L Normal 0.45-5.33 [facility] Comment on above: Performed By: #### D HESUE, LC T4, [id number], SEROTON, TEST F + T, T3R, THYGLOB AB, ESTRADIOL, TPO, SHBG, ESTRONE, INSULIN, PROG #### [facility] , #### T4F, TRISTEN, TSH3, A1C WTH eA, FILIBERTO, GLU, T3F #### [address] Thyroxine (T4) free [Mass/vo lume] in Serum or PlasmaOrdered By: Deisy Villar on 01-07-2024 Free T4 [Mass/Vol] 0.88 ng/dL Normal 0.61-1.12 [facility] Comment on above: Performed By: #### D VENITA, LC T4, [id number], SEROTON, TEST F + T, T3R, THYGLOB AB, ESTRADIOL, TPO, SHBG, ESTRONE, INSULIN, PROG #### [facility] , #### T4F, TRISTEN, TSH3, A1C WTH eA, FILIBERTO, GLU, T3F #### [facility] [address] [place] [address] Triiodothyronine (T3) Freeon 01-07-2024 Triiodothyronine (T3) Free 3.90 pg/mL Normal 2.50-3.90 [facility] Comment on above: Result Comment: PERF ORMED BY: [place] [address] PATHOLOGIST MECHANICAL ARTIST JOSE GOEL M.D. Performed By: #### D HESUE, LC T4, [id number], SEROTON, TEST F + T, T3R, THYGLOB AB, ESTRADIOL, TPO, SHBG, ESTRONE, INSULIN, PROG #### [facility] , #### T4F, TRISTEN, TSH3, A1C WTH eA, FILIBERTO, GLU, T3F #### [facility] [address] Triiodothyronine (T3) Free [ Mass/volume] in Serum or PlasmaOrdered By: Deisy Villar on 01-07-2024 Free T3 [Mass/Vol] 3.90 pg/mL 2.50-3.90 [facility] Triiodothyronine (T3) Revers lonnie 01-07-2024 Triiodothyronine (T3) Reverse 18.9 ng/dL Normal 9.2-24.1 [facility] Comment on above: Result Comment: This test was developed and its performance characteristics determined by [facility]. It has not been cleared or approved by the Food and Drug Administration. Performed at: [address] [id number] Balance Recesser: Quinton Wolf MD, Phone: [phone] Performed By: #### D VENITA, T4, [id number], SEROTON, TEST F + T, T3R, THYGLOB AB, ESTRADIOL, TPO, SHBG, ESTRONE, INSULIN, PROG #### [facility] , #### T4F, TRISTEN, TSH3, A1C WTH eA, FILIBERTO, GLU, T3F #### [address] Alanine aminotransferase [En zymatic activity/volume] in Serum or PlasmaOrdered By: Delano Francis on 09-17-2023 ALT [Catalytic activity/Vol] 20 U/L [facility] Albumin [Mass/volume] in Ser um or Plasma by Bromocresol green (BCG) dye binding methoOrdered By: Delano Francis on 09-17-2023 Albumin BCG dye [Mass/Vol] 4.3 g/dL 3.5-5.7 [facility] Alkaline phosphatase [Enzyma tic activity/volume] in Serum or PlasmaOrdered By: Delano Francis on 09-17-2023 ALP [Catalytic activity/Vol] 62 U/L 34-104 [facility] Aspartate aminotransferase [ Enzymatic activity/volume] in Serum or PlasmaOrdered By: Delano Francis on 09-17-2023 AST [Catalytic activity/Vol] 22 U/L 13-39 [facility] Basophils Auto (Bld) [#/Vol] Ordered By: Delano Francis on 09-17-2023 Basophils (Bld) [#/Vol] 0.0 10*3/uL 0.0-0.2 [facility] Basophils/100 WBC Auto (Bld) Ordered By: Delano Francis on 09-17-2023 Basophils/100 WBC (Bld) 0.4 % . [facility] Bilirubin.total [Mass/volume ] in Serum or PlasmaOrdered By: Delano Francis on 09-17-2023 Bilirubin [Mass/Vol] 0.7 mg/dL 0.3-1.0 [facility] Calcium [Mass/volume] in Ser um or PlasmaOrdered By: Delano Francis on 09-17-2023 Calcium [Mass/Vol] 9.4 mg/dL 8.6-10.3 [facility] Carbon dioxide, total [Moles /volume] in Serum or PlasmaOrdered By: Delano Francis on 09-17-2023 CO2 [Moles/Vol] 26.2 mmol/L 21.0-31.0 [facility] Chloride [Moles/volume] in S stevo or PlasmaOrdered By: Delano Francis on 09-17-2023 Chloride [Moles/Vol] 102 mmol/L 98-107 [facility] Cholesterol [Mass/volume] in Serum or PlasmaOrdered By: Delano Francis on 09-17-2023 Cholesterol [Mass/Vol] 214 mg/dL 140-200 [facility] Comment on above: Chol less than 200 m g/dl low riskChol 201-239 mg/dl borderline riskChol 240 mg/dl and greater high risk Cholesterol in LDL Calc [Mas s/Vol]Ordered By: Delano Francis on 09-17-2023 Cholesterol in LDL [Mass/Vol] 161 mg/dL 0-100 [facility] Comment on above: LDL ATP III CLASSIFI CATIONLDL less than 100 mg/dL OptimalLDL 100-129 mg/dL Near or above optimalLDL 130-159 mg/dL Borderline highLDL 160-189 mg/dL HighLDL greater than 189 mg/dL Very high Cholesterol in VLDL Calc [Ma ss/Vol]Ordered By: Delano Francis on 09-17-2023 Cholesterol in VLDL [Mass/Vol] 9 mg/dL [facility] Creatinine [Mass/volume] in Serum or PlasmaOrdered By: Delano Francis on 09-17-2023 Creatinine [Mass/Vol] 0.79 mg/dL 0.60-1.20 [facility] Eosinophils Auto (Bld) [#/Vo l]Ordered By: Delano Francis on 09-17-2023 Eosinophils (Bld) [#/Vol] 0.1 10*3/uL 0.0-0.45 [facility] Eosinophils/100 WBC Auto (Bl d)Ordered By: Delano Francis on 09-17-2023 Eosinophils/100 WBC (Bld) 0.9 % . [facility] Erythrocyte distribution wid th Auto (RBC) [Ratio]Ordered By: Delano Francis on 09-17-2023 Erythrocyte distribution width (RBC) [Ratio] 12.4 % 11.9-15.3 [facility] Globulin Calc (S) [Mass/Vol] Ordered By: Delano Francis on 09-17-2023 Globulin (S) [Mass/Vol] 2.5 g/dL [facility] Glucose [Mass/volume] in Ser um or PlasmaOrdered By: Delano Francis on 09-17-2023 Glucose [Mass/Vol] 75 mg/dL 70-100 [facility] Hematocrit Auto (Bld) [Volum e fraction]Ordered By: Delano Francis on 09-17-2023 Hematocrit (Bld) [Volume fraction] 34.2 % 34.0-46.4 [facility] Hemoglobin [Mass/volume] in BloodOrdered By: Delano Francis on 09-17-2023 Hemoglobin (Bld) [Mass/Vol] 11.8 g/dL 11.8-15.4 [facility] Leukocytes [#/volume] correc calvin for nucleated erythrocytes in Blood by Automated counOrdered By: Delano Francis on 09-17-2023 WBC corrected for nucl RBC Auto (Bld) [#/Vol] 5.9 10*3/uL 3.8-11.6 [facility] Lymphocytes Auto (Bld) [#/Vo l]Ordered By: Delano Francis on 09-17-2023 Lymphocytes (Bld) [#/Vol] 1.8 10*3/uL 1.00-4.8 [facility] Lymphocytes/100 WBC Auto (Bl d)Ordered By: Delano Francis on 09-17-2023 Lymphocytes/100 WBC (Bld) 30.5 % . [facility] MCH Auto (RBC) [Entitic mass ]Ordered By: Delano Francis on 09-17-2023 MCH (RBC) [Entitic mass] 31.8 pg 24.7-34.3 [facility] MCHC Auto (RBC) [Mass/Vol]Or dered By: Delano Francis on 09-17-2023 MCHC (RBC) [Mass/Vol] 34.4 g/dL 32.0-35.0 [facility] MCV Auto (RBC) [Entitic vol] Ordered By: Delano Francis on 09-17-2023 MCV (RBC) [Entitic vol] 92.5 fL 80-100 [facility] Monocytes Auto (Bld) [#/Vol] Ordered By: Delano Francis on 09-17-2023 Monocytes (Bld) [#/Vol] 0.5 10*3/uL 0.0-0.8 [facility] Monocytes/100 WBC Auto (Bld) Ordered By: Delano Francis on 09-17-2023 Monocytes/100 WBC (Bld) 9.2 % . [facility] Neutrophils Auto (Bld) [#/Vo l]Ordered By: Delano Francis on 09-17-2023 Neutrophils (Bld) [#/Vol] 3.5 10*3/uL 1.8-7.7 [facility] Neutrophils/100 WBC Auto (Bl d)Ordered By: Delano Francis on 09-17-2023 Neutrophils/100 WBC (Bld) 59.0 % . [facility] No Panel InformationOrdered By: Delano Francis on 09-17-2023 Estimated GFR (CKD-EPI) > 60.0 mL/Min [facility] Creatinine Clearance (Chem N/A [facility] Nucleated erythrocytes [Pres ence] in Blood by Automated countOrdered By: Delano Francis on 09-17-2023 Nucleated RBC Auto Ql (Bld) 0.2 /100{WBC} 0-0.5 [facility] Platelet mean volume Auto (B ld) [Entitic vol]Ordered By: Delano Francis on 09-17-2023 Platelet mean volume (Bld) [Entitic vol] 8.1 fL 6.3-10.7 [facility] Platelets Auto (Bld) [#/Vol] Ordered By: Delano Francis on 09-17-2023 Platelets (Bld) [#/Vol] 250 10*3/uL 150-450 [facility] Potassium [Moles/volume] in Serum or PlasmaOrdered By: Delano Francis on 09-17-2023 Potassium [Moles/Vol] 4.0 mmol/L 3.5-5.1 [facility] Protein [Mass/volume] in Ser um or PlasmaOrdered By: Delano Francis on 09-17-2023 Protein [Mass/Vol] 6.8 g/dL 6.4-8.9 [facility] RBC Auto (Bld) [#/Vol]Ordere d By: Delano Francis on 09-17-2023 RBC (Bld) [#/Vol] 3.70 10*6/uL 3.60-5.00 [facility] Serum or plasma albumin/glob ulin mass ratioOrdered By: Delano Francis on 09-17-2023 Albumin/Globulin [Mass ratio] 1.7 {ratio} [facility] Serum or plasma anion gap de terminationOrdered By: Delano Francis on 09-17-2023 Anion gap [Moles/Vol] 10.8 mmol/L 6.0-15.0 [facility] Serum or plasma high density lipoprotein (HDL) cholesterol measurementOrdered By: Delano Francis on 09-17-2023 Cholesterol in HDL [Mass/Vol] 43 mg/dL 23-92 [facility] Comment on above: HDL CHOL ATP-III CLA SSIFICATION Cardiovascular RiskHDL > or equal to 60 mg/dL LOWHDL < 40 mg/dL HIGH Serum or plasma total choles terol/high density lipoprotein (HDL) cholesterol mass ratOrdered By: Delano Francis on 09-17-2023 Cholesterol.total/Alivia sterol in HDL [Mass ratio] 5.0 {ratio} <5.0 [facility] Sodium [Moles/volume] in Ser um or PlasmaOrdered By: Delano Francis on 09-17-2023 Sodium [Moles/Vol] 135 mmol/L 136-145 [facility] Thyrotropin [Units/volume] i n Serum or PlasmaOrdered By: Delano Francis on 09-17-2023 TSH Qn 1.04 m[IU]/L 0.45-5.33 [facility] Triglyceride [Mass/volume] i n Serum or PlasmaOrdered By: Delano Francis on 09-17-2023 Triglyceride [Mass/Vol] 48 mg/dL 0-149 [facility] Comment on above: TRIG ATP III CLASSIF ICATIONTRIG less than 150 mg/dL NormalTRIG 150-199 mg/dL Borderline highTRIG 200-500 mg/dL High TRIG greater than 500 mg/dL Very highStandard traceable to the Center for Disease Conrtrol and Prevention (CDC) test method. Urea nitrogen [Mass/volume] in Serum or PlasmaOrdered By: Delano Francis on 09-17-2023 Urea nitrogen [Mass/Vol] 7 mg/dL 7-25 [facility] WBC Auto (Bld) [#/Vol]Ordere d By: Delano Francis on 09-17-2023 WBC (Bld) [#/Vol] 5.9 10*3/uL 3.8-11.6 [facility] Mononucleosis Test, [place] 1 Heterophile Ab LA Ql (S) Negative [facility] Other Quick Strepon 09-26-2022 S. pyogenes Org specific cx Ql (Throat) Negative [employer] Other Quick Strep [facility] Other SARS-CoV-2 (COVID-19) RNA NA A+probe Ql (Resp)on 09-26-2022 SARS-CoV-2 (COVID-19) RNA ROB+probe Ql (Unsp spec) Negative [facility] Other PAP ACOG PANEL 2: 30 to 65on 09-01-2022 . . Normal [facility] Comment on above: Result Comment: Perf ormed at: WB Performed By: #### [id number] #### [facility] [address] [address] [address] Zonia Zhang Age Gdln ACOG Testing - [facility] Comment on above: Performed By: #### [id number] #### [facility] [address] [place] [address] Dr. Zonia Zhang DIAGNOSIS: Comment Normal [facility] Comment on above: Result Comment: NEGA TIVE FOR INTRAEPITHELIAL LESION OR MALIGNANCY. Performed at: WB Performed By: #### [id number] #### [facility] [address] [address] [address] Zonia Zhang HPV Aptima Negative Normal [facility] Comment on above: Result Comment: This nucleic acid amplification test detects fourteen high-risk HPV types (16,18,31,33,35,39,45,51,52,56,58,59,66,68) without differentiation. Performed at: =G Performed By: #### [id number] #### [facility] [address] [address] [address] Zonia Zhang Methodology: Comment [facility] Comment on above: Result Comment: This liquid based ThinPrep(R) pap test was screened with the use of an image guided system. Performed at: WB Performed By: #### [id number] #### [facility] [address] [place] [address] Dr. Zonia Zhang Note: Comment Normal [facility] Comment [...] Performed at: WB Performed By: #### [id number] #### [facility] [address] [place] [address] Dr. Zonia Zhang Performed by: Comment Normal [facility] Comment on above: Result Comment: Negin Tomas, Dispenser Operator (ASCP) Performed at: WB Performed By: #### [id number] #### [facility] [address] [place] [address] Dr. Zonia Zhang Specimen adequacy: Comment Normal [facility] Comment on above: Result Comment: Sati sfactory for evaluation. Endocervical and/or squamous metaplastic cells (endocervical component) are present. Performed at: WB Performed By: #### [id number] #### [facility] [address] [place] [address] Dr. Zonia Zhang Basophils Auto (Bld) [#/Vol] Ordered By: Delano Francis on 08-07-2022 Basophils (Bld) [#/Vol] 0.0 10*3/uL 0.0-0.2 [facility] Basophils/100 WBC Auto (Bld) Ordered By: Delano Francis on 08-07-2022 Basophils/100 WBC (Bld) 0.5 % . [facility] Blood hemoglobin measurement (mass/volume)Ordered By: Delano Francis on 08-07-2022 Hemoglobin (Bld) [Mass/Vol] 12.7 g/dL 11.8-15.4 [facility] Blood leukocytes automated c ount (number/volume)Ordered By: Delano Francis on 08-07-2022 WBC (Bld) [#/Vol] 5.0 10*3/uL 4.5-11.0 [facility] Body fluid albumin measureme nt (mass/volume)Ordered By: Delano Francis on 08-07-2022 Albumin (Body fld) [Mass/Vol] 4.1 g/dL 3.2-5.5 [facility] Cholesterol [Mass/volume] in Serum or PlasmaOrdered By: Delano Francis on 08-07-2022 Cholesterol [Mass/Vol] 253 mg/dL 140-200 [facility] Comment on above: Chol less than 200 m g/dl low risk Chol 201-239 mg/dl borderline risk Chol 240 mg/dl and greater high risk Chol less than 200 m g/dl low riskChol 201-239 mg/dl borderline riskChol 240 mg/dl and greater high risk Cholesterol in LDL Calc [Mas s/Vol]Ordered By: Delano Francis on 08-07-2022 Cholesterol in LDL [Mass/Vol] 181 mg/dL 0-100 [facility] Comment on above: LDL ATP [...] 08-07-2022 Cholesterol in VLDL [Mass/Vol] 12 mg/dL [facility] Creatinine and Glomerular fi ltration rate.predicted panel (S/P/Bld)Ordered By: Delano Francis on 08-07-2022 Creatinine [Mass/Vol] 0.76 mg/dL 0.44-1.03 [facility] Eosinophils Auto (Bld) [#/Vo l]Ordered By: Delano Francis on 08-07-2022 Eosinophils (Bld) [#/Vol] 0.1 10*3/uL 0.0-0.45 [facility] Eosinophils/100 WBC Auto (Bl d)Ordered By: Delano Francis on 08-07-2022 Eosinophils/100 WBC (Bld) 1.6 % . [facility] Erythrocyte distribution wid th Auto (RBC) [Ratio]Ordered By: Delano Francis on 08-07-2022 Erythrocyte distribution width (RBC) [Ratio] 12.6 % 11.9-15.3 [facility] Estimated glomerular filtrat ion rate (GFR) non- AmericanOrdered By: Delano Francis on 08-07-2022 GFR/1.73 sq M.predicted among non-blacks MDRD (S/P/Bld) [Vol rate/Area] > 60 mL/Min [facility] Globulin Calc (S) [Mass/Vol] Ordered By: Delano Francis on 08-07-2022 Globulin (S) [Mass/Vol] 2.3 g/dL [facility] Hematocrit Auto (Bld) [Volum e fraction]Ordered By: Delano Francis on 08-07-2022 Hematocrit (Bld) [Volume fraction] 37.5 % 34.0-46.4 [facility] Laboratory - Chemistry and C hemistry - challengeOrdered By: Delano Francis on 08-07-2022 Glucose [Mass/Vol] 88 mg/dL 70-100 [facility] - Hematology and Cell countsOrdered By: Delano Francis on 08-07-2022 Nucleated RBC/100 WBC (Bld) [Ratio] 0.1 % 0-0.5 [facility] Lymphocytes Auto (Bld) [#/Vo l]Ordered By: Delano Francis on 08-07-2022 Lymphocytes (Bld) [#/Vol] 1.4 10*3/uL 1.00-4.8 [facility] Lymphocytes/100 WBC Auto (Bl d)Ordered By: Delano Francis on 08-07-2022 Lymphocytes/100 WBC (Bld) 28.1 % . [facility] MCH Auto (RBC) [Entitic mass ]Ordered By: Delano Francis on 08-07-2022 MCH (RBC) [Entitic mass] 31.8 pg 24.7-34.3 [facility] MCHC Auto (RBC) [Mass/Vol]Or dered By: Delano Francis on 08-07-2022 MCHC (RBC) [Mass/Vol] 33.8 g/dL 32.0-35.0 [facility] MCV Auto (RBC) [Entitic vol] Ordered By: Delano Francis on 08-07-2022 MCV (RBC) [Entitic vol] 94.3 fL 80-100 [facility] Monocyte %Ordered By: Delano Francis on 08-07-2022 Monocyte % 60 mg/dL 35-149 [facility] Comment on above: TRIG ATP [...] 08-07-2022 Monocytes (Bld) [#/Vol] 0.5 10*3/uL 0.0-0.8 [facility] Monocytes/100 WBC Auto (Bld) Ordered By: Delano Francis on 08-07-2022 Monocytes/100 WBC (Bld) 10.1 % . [facility] Neutrophils Auto (Bld) [#/Vo l]Ordered By: Delano Francis on 08-07-2022 Neutrophils (Bld) [#/Vol] 3.0 10*3/uL 1.8-7.7 [facility] Neutrophils/100 WBC Auto (Bl d)Ordered By: Delano Francis on 08-07-2022 Neutrophils/100 WBC (Bld) 59.7 % . [facility] No Panel InformationOrdered By: Delano Francis on 08-07-2022 Estimated GFR () > 60 mL/Min [facility] Comment on above: GFR estimated refere nce range: According to KDOQI guidelines, <60 ml/min/1.73m2 is sufficient to diagnose a patient with chronic kidney disease. Nicotine Metabolite Negative Cutoff=25 [facility] Comment on above: Performed at: [facility] [address] [id number] Director: Quinton Wolf MD, Phone: [phone] Pharmacy Creatinine Clearance (Chem N/A [facility] Platelet mean volume Auto (B ld) [Entitic vol]Ordered By: Delano Francis on 08-07-2022 Platelet mean volume (Bld) [Entitic vol] 7.8 fL 6.3-10.7 [facility] Platelets Auto (Bld) [#/Vol] Ordered By: Delano Francis on 08-07-2022 Platelets (Bld) [#/Vol] 275 10*3/uL 150-450 [facility] Protein [Mass/volume] in Ser um or PlasmaOrdered By: Delano Francis on 08-07-2022 Protein [Mass/Vol] 6.4 g/dL 6.1-7.9 [facility] RBC Auto (Bld) [#/Vol]Ordere d By: Delano Francis on 08-07-2022 RBC (Bld) [#/Vol] 3.97 10*6/uL 3.60-5.00 [facility] Serum or plasma alanine troy otransferase measurement without P-5'-P (enzymatic activiOrdered By: Delano Francis on 08-07-2022 ALT No additional P-5'-P [Catalytic activity/Vol] 13 U/L 10-60 [facility] Serum or plasma albumin/glob ulin mass ratioOrdered By: Delano Francis on 08-07-2022 Albumin/Globulin [Mass ratio] 1.8 {ratio} [facility] Serum or plasma alkaline nova sphatase measurement (enzymatic activity/volume)Ordered By: Delano Francis on 08-07-2022 ALP [Catalytic activity/Vol] 52 U/L 32-92 [facility] Serum or plasma anion gap de terminationOrdered By: Delano Francis on 08-07-2022 Anion gap [Moles/Vol] 11.7 mmol/L 6.0-15.0 [facility] Serum or plasma aspartate am inotransferase measurement (enzymatic activity/volume)Ordered By: Delano Francis on 08-07-2022 AST [Catalytic activity/Vol] 15 U/L 10-42 [facility] Serum or plasma calcium kevin urement (mass/volume)Ordered By: Delano Francis on 08-07-2022 Calcium [Mass/Vol] 9.8 mg/dL 8.2-10.2 [facility] Serum or plasma chloride ra surement (moles/volume)Ordered By: Delano Francis on 08-07-2022 Chloride [Moles/Vol] 101 mmol/L 95-114 [facility] Serum or plasma high density lipoprotein (HDL) cholesterol measurementOrdered By: Delano Francis on 08-07-2022 Cholesterol in HDL [Mass/Vol] 60 mg/dL 35-85 [facility] Comment on above: HDL CHOL ATP-III CLA SSIFICATION Cardiovascular Risk HDL > or equal to 60 mg/dL LOW HDL < 40 mg/dL HIGH HDL CHOL ATP-III CLA SSIFICATION Cardiovascular RiskHDL > or equal to 60 mg/dL LOWHDL < 40 mg/dL HIGH Serum or plasma potassium me asurement (moles/volume)Ordered By: Delano Francis on 08-07-2022 Potassium [Moles/Vol] 4.4 mmol/L 3.5-5.1 [facility] Serum or plasma sodium measu rement (moles/volume)Ordered By: Delano Francis on 08-07-2022 Sodium [Moles/Vol] 136 mmol/L 136-146 [facility] Serum or plasma total biliru bin measurement (mass/volume)Ordered By: Delano Francis on 08-07-2022 Bilirubin [Mass/Vol] 1.0 mg/dL 0.3-1.2 [facility] Serum or plasma total carbon dioxide measurement (moles/volume)Ordered By: Delano Francis on 08-07-2022 CO2 [Moles/Vol] 27.7 mmol/L 22.0-30.0 [facility] Serum or plasma total choles terol/high density lipoprotein (HDL) cholesterol mass ratOrdered By: Delano Francis on 08-07-2022 Cholesterol.total/Alivia sterol in HDL [Mass ratio] 4.2 {ratio} <5.0 [facility] Serum or plasma urea nitroge n measurement (mass/volume)Ordered By: Delano Francis on 08-07-2022 Urea nitrogen [Mass/Vol] 9 mg/dL 9- [facility] TSH DL <= 0.005 mIU/L QnOrde red By: Delano Francis on 08-07-2022 TSH Qn 1.43 m[IU]/L 0.45-5.33 [facility] T3, TOTAL (TRIIODOTHYRONINE) on 06-07-2022 T3, TOTAL 88 ng/dL Normal 71-180 [facility] Comment on above: Performed By: #### T 3TOTAL #### [facility] [address] [address] [address] Zonia Zhang FREE T4on 06-06-2022 Free T4 [Mass/Vol] 0.94 ng/dL Normal 0.76-1.46 [facility] Comment on above: Performed By: #### F T4 #### [facility] [address] [address] [address] Zonia Zhang TSHon 06-06-2022 TSH 1.364 uIU/mL Normal 0.358-3.74 0 [facility] Comment on above: Performed By: #### T SH #### [facility] [address] [address] [address] Zonia Zhang COVID Quick Testingon 2021 Result Positive [facility] Other Quick Fluon 12-27-2021 FLUAV Ab CF (S) [Titer] Negative [employer] Other FLUBV Ab CF (S) [Titer] Negative [employer] Other Vital Signs Date Time Vital Sign Value Performing Clinician Facility 08-07-2025 15:33-0400 Body mass index (BMI) [Ratio] 36.34 kg/m2 [employer] Work Phone: [facility] 08-07-2025 15:33-0400 Body weight 105.23 kg [employer] Work Phone: [facility] 08-07-2025 15:33-0400 Diastolic blood pressure 80 mm[Hg] [employer] Work Phone: [facility] 08-07-2025 15:33-0400 Systolic blood pressure 130 mm[Hg] [employer] Work Phone: [facility] 08-03-2025 09:28-0400 Body mass index (BMI) [Ratio] 36.46 kg/m2 Ángel Sita DO Work Phone: [facility] 08-03-2025 09:28-0400 Body weight 105.6 kg Ángel Sita DO Work Phone: [facility] 08-03-2025 09:28-0400 Diastolic blood pressure 76 mm[Hg] Ángel Sita DO Work Phone: [facility] 08-03-2025 09:28-0400 Systolic blood pressure 120 mm[Hg] Ángel Sita DO Work Phone: [facility] 07-24-2025 11:34-0400 Body mass index (BMI) [Ratio] 36.57 kg/m2 Ángel Sita DO Work Phone: [facility] 07-24-2025 11:34-0400 Body weight 105.92 kg Ángel Sita DO Work Phone: [facility] 07-24-2025 11:34-0400 Diastolic blood pressure 74 mm[Hg] Ángel Sita DO Work Phone: [facility] 07-24-2025 11:34-0400 Systolic blood pressure 118 mm[Hg] Ángel Sita DO Work Phone: [facility] 07-17-2025 14:59-0400 Body mass index (BMI) [Ratio] 36.77 kg/m2 Ángel Sita DO Work Phone: [facility] 07-17-2025 14:59-0400 Body weight 106.5 kg Ángel Sita DO Work Phone: [facility] 07-17-2025 14:59-0400 Diastolic blood pressure 70 mm[Hg] Ángel Sita DO Work Phone: [facility] 07-17-2025 14:59-0400 Systolic blood pressure 118 mm[Hg] Ángel Sita DO Work Phone: [facility] 07-10-2025 13:59-0400 Body mass index (BMI) [Ratio] 36.41 kg/m2 Ángel Sita DO Work Phone: [facility] 07-10-2025 13:59-0400 Body weight 105.46 kg Ángel Sita DO Work Phone: [facility] 07-10-2025 13:59-0400 Diastolic blood pressure 74 mm[Hg] Ángel Sita DO Work Phone: [facility] 07-10-2025 13:59-0400 Systolic blood pressure 126 mm[Hg] Ángel Sita DO Work Phone: [facility] 06-26-2025 13:08-0400 Body mass index (BMI) [Ratio] 36.2 kg/m2 Ángel Sita DO Work Phone: [facility] 06-26-2025 13:08-0400 Body weight 104.83 kg Ángel Sita DO Work Phone: [facility] 06-26-2025 13:08-0400 Diastolic blood pressure 74 mm[Hg] Ángel Sita DO Work Phone: [facility] 06-26-2025 13:08-0400 Systolic blood pressure 116 mm[Hg] Ángel Sita DO Work Phone: [facility] 06-12-2025 14:21-0400 Body mass index (BMI) [Ratio] 35.73 kg/m2 Ángel Sita DO Work Phone: [facility] 06-12-2025 14:21-0400 Body weight 103.47 kg Ángel Sita DO Work Phone: [facility] 06-12-2025 14:21-0400 Diastolic blood pressure 70 mm[Hg] Ángel Sita DO Work Phone: [facility] 06-12-2025 14:21-0400 Systolic blood pressure 120 mm[Hg] Ángel Sita DO Work Phone: [facility] 05-30-2025 09:10-0400 Body mass index (BMI) [Ratio] 35.52 kg/m2 Ángel Sita DO Work Phone: [facility] 05-30-2025 09:10-0400 Body weight 102.88 kg Ángel Sita DO Work Phone: [facility] 05-30-2025 09:10-0400 Diastolic blood pressure 78 mm[Hg] Ángel Sita DO Work Phone: [facility] 05-30-2025 09:10-0400 Systolic blood pressure 120 mm[Hg] Ángel Siat DO Work Phone: [facility] 05-01-2025 08:36-0400 Body mass index (BMI) [Ratio] 34.43 kg/m2 Deisy MUNOZ Work Phone: [facility] 05-01-2025 08:36-0400 Body weight 99.7 kg Deisy MUNOZ Work Phone: [facility] 05-01-2025 08:36-0400 Diastolic blood pressure 74 mm[Hg] Deisy Villar PA Work Phone: [facility] 05-01-2025 08:36-0400 Systolic blood pressure 118 mm[Hg] Deisy Villar PA Work Phone: [facility] 03-30-2025 10:28-0400 Body mass index (BMI) [Ratio] 32.89 kg/m2 Ángel Sita DO Work Phone: [facility] 03-30-2025 10:28-0400 Body weight 95.25 kg Ángel Sita DO Work Phone: [facility] 03-30-2025 10:28-0400 Diastolic blood pressure 84 mm[Hg] Ángel Sita DO Work Phone: [facility] 03-30-2025 10:28-0400 Systolic blood pressure 120 mm[Hg] Ángel Sita DO Work Phone: [facility] 03-02-2025 09:58-0400 Body mass index (BMI) [Ratio] 31.76 kg/m2 Deisy Adithya PA Work Phone: [facility] 03-02-2025 09:58-0400 Body weight 91.99 kg Deisy Villar PA Work Phone: [facility] 03-02-2025 09:58-0400 Diastolic blood pressure 72 mm[Hg] Deisy Villar PA Work Phone: [facility] 03-02-2025 09:58-0400 Systolic blood pressure 120 mm[Hg] Deisy Villar PA Work Phone: [facility] 02-02-2025 09:25-0500 Body mass index (BMI) [Ratio] 30.54 kg/m2 Ángel Sita DO Work Phone: [facility] 02-02-2025 09:25-0500 Body weight 88.45 kg Ángel Siat DO Work Phone: [facility] 02-02-2025 09:25-0500 Diastolic blood pressure 70 mm[Hg] Ángel Sita DO Work Phone: [facility] 02-02-2025 09:25-0500 Systolic blood pressure 120 mm[Hg] Ángel Sita DO Work Phone: [facility] 10-18-2024 11:19-0500 Body height 170.18 cm Robles Ball DO Work Phone: [facility] 10-18-2024 11:19-0500 Body mass index (BMI) [Ratio] 29.7 kg/m2 Robles Ball DO Work Phone: [facility] 10-18-2024 11:19-0500 Body weight 86.23 kg Robles Ball DO Work Phone: [facility] 10-18-2024 11:19-0500 Diastolic blood pressure 77 mm[Hg] Robles Ball DO Work Phone: [facility] 10-18-2024 11:19-0500 Heart rate 88 /min Robles Ball DO Work Phone: [facility] 10-18-2024 11:19-0500 Respiratory rate 12 /min Robles Ball DO Work Phone: [facility] 10-18-2024 11:19-0500 Systolic blood pressure 111 mm[Hg] Robles Ball DO Work Phone: [facility] 09-13-2024 14:28-0400 Body mass index (BMI) [Ratio] 28.79 kg/m2 Ángel Sita DO Work Phone: [facility] 09-13-2024 14:28-0400 Body weight 83.37 kg Ángel Sita DO Work Phone: [facility] 09-13-2024 14:28-0400 Diastolic blood pressure 70 mm[Hg] Ángel Sita DO Work Phone: [facility] 09-13-2024 14:28-0400 Systolic blood pressure 120 mm[Hg] Ángel Sita DO Work Phone: [facility] 05-03-2024 14:40-0400 Body height 170.18 cm [facility] 05-03-2024 14:40-0400 Body mass index (BMI) [Ratio] 28.3 kg/m2 [facility] 05-03-2024 14:40-0400 Body weight 82.1 kg [facility] 05-03-2024 14:40-0400 Diastolic blood pressure 82 mm[Hg] [facility] 05-03-2024 14:40-0400 Heart rate 78 /min [facility] 05-03-2024 14:40-0400 SaO2% (BldA) [Mass fraction] 98 % [facility] 05-03-2024 14:40-0400 Systolic blood pressure 122 mm[Hg] [facility] 01-06-2024 14:20-0500 Body height 170.2 cm Deisy MUNOZ Work Phone: [facility] 01-06-2024 14:20-0500 Body mass index (BMI) [Ratio] 28.05 kg/m2 Deisy MUNOZ Work Phone: [facility] 01-06-2024 14:20-0500 Body weight 81.25 kg Deisy Villar ALEXANDER Work Phone: [facility] 01-06-2024 14:20-0500 Diastolic blood pressure 70 mm[Hg] Deisy Villar PA Work Phone: [facility] 01-06-2024 14:20-0500 Systolic blood pressure 120 mm[Hg] Deisy Villar ALEXANDER Work Phone: [facility] 10-02-2023 10:00-0400 Body height 170.18 cm Robles Ball Other [facility] Other 10-02-2023 10:00-0400 Body mass index (BMI) [Ratio] 29.38 kg/m2 Robles Ball Other [facility] Other 10-02-2023 10:00-0400 Body weight 85.1 kg Robles Ball Other [facility] Other 10-02-2023 10:00-0400 Diastolic blood pressure 83 mm[Hg] Robles Ball Other [facility] Other 10-02-2023 10:00-0400 Respiratory rate 12 /min Robles Ball Other [facility] Other 10-02-2023 10:00-0400 Systolic blood pressure 131 mm[Hg] Robles Ball Other [facility] Other 01-22-2023 10:30-0500 Body height 170.18 cm Robles Ball Other [facility] Other 01-22-2023 10:30-0500 Body mass index (BMI) [Ratio] 29.91 kg/m2 Robles Ball Other [facility] Other 01-22-2023 10:30-0500 Body weight 86.64 kg Robles Ball Other [facility] Other 01-22-2023 10:30-0500 Diastolic blood pressure 72 mm[Hg] Robles Ball Other [facility] Other 01-22-2023 10:30-0500 Respiratory rate 16 /min Robles Ball Other [facility] Other 01-22-2023 10:30-0500 Systolic blood pressure 122 mm[Hg] Robles Ball Other [facility] Other 09-26-2022 16:10-0400 Body height 170.18 cm Kiya Schaffer Other [facility] Other 09-26-2022 16:10-0400 Body mass index (BMI) [Ratio] 29.29 kg/m2 Kiya Schaffer Other [facility] Other 09-26-2022 16:10-0400 Body temperature 98.8 [degF] Kiya Schaffer Other [facility] Other 09-26-2022 16:10-0400 Body weight 84.82 kg Kiya Schaffer Other [facility] Other 09-26-2022 16:10-0400 Diastolic blood pressure 73 mm[Hg] Kyia Schaffer Other [facility] Other 09-26-2022 16:10-0400 Respiratory rate 18 /min Kiya Schaffer Other [facility] Other 09-26-2022 16:10-0400 SaO2% (BldA) [Mass fraction] 97 % Kiya Schaffer Other [facility] Other 09-26-2022 16:10-0400 Systolic blood pressure 125 mm[Hg] Kiya Schaffer Other [facility] Other 12-27-2021 10:15-0500 Body height 170.18 cm Elsi Mayer Other [facility] Other 12-27-2021 10:15-0500 Body mass index (BMI) [Ratio] 28.19 kg/m2 Elsi Mayer Other [facility] Other 12-27-2021 10:15-0500 Body temperature 100.3 [degF] Elsi Mayer Other [facility] Other 12-27-2021 10:15-0500 Body weight 81.65 kg Elsi Mayer Other [facility] Other 12-27-2021 10:15-0500 Respiratory rate 18 /min Elsi Mayer Other [facility] Other 12-27-2021 10:15-0500 SaO2% (BldA) [Mass fraction] 98 % Elsi Mayer Other [facility] Other Encounters Encounter Date Encounter Type Care Provider Facility Start: 08-08-2025 End: 08-08-2025 Clinisync Result Encounter Ángel Sita DO Work Phone: [facility] Unsolicited Start: 08-08-2025 End: 08-08-2025 Clinisync Result Encounter Ángel Sita DO Work Phone: [facility] Unsolicited Start: 08-07-2025 End: 08-07-2025 flow sheet Ángel Sita DO Work Phone: [facility] Comment on above: Third trimester preg lai ([facility]); 39 weeks gestation of ([facility]) Start: 08-07-2025 End: 08-07-2025 ambulatory ÁNGEL SITA Not Available Start: 08-07-2025 End: 08-07-2025 Bamboo flowsheet Ángel Sita DO Work Phone: [facility] Start: 08-07-2025 End: 08-07-2025 Bamboo flowsheet Ángel Sita DO Work Phone: [facility] Start: 08-07-2025 End: 08-07-2025 Clinisync Result Encounter Ángel Sita DO Work Phone: [facility] Unsolicited Start: 08-05-2025 End: 08-05-2025 Clinisync Result Encounter Ángel Sita DO Work Phone: [facility] Unsolicited Start: 08-05-2025 End: 08-05-2025 Clinisync Result Encounter Ángel Sita DO Work Phone: [facility] Unsolicited Start: 08-03-2025 End: 08-03-2025 Bamboo flowsheet Ángel Sita DO Work Phone: [facility] Start: 08-03-2025 End: 08-03-2025 Bamboo flowsheet Ángel Sita DO Work Phone: [facility] Start: 08-03-2025 End: 08-03-2025 flow sheet Ángel Sita DO Work Phone: [facility] Comment on above: Third trimester preg lai ([facility]); 39 weeks gestation of ([facility]) Start: 08-03-2025 End: 08-03-2025 ambulatory ÁNGEL SITA Not Available Start: 07-29-2025 End: 07-29-2025 Clinisync Result Encounter Ángel Sita DO Work Phone: [facility] Unsolicited Start: 07-29-2025 End: 07-29-2025 Clinisync Result Encounter Ángel Sita DO Work Phone: [facility] Unsolicited Start: 07-24-2025 End: 07-24-2025 Bamboo flowsheet Ángel Sita DO Work Phone: [facility] Start: 07-24-2025 End: 07-24-2025 Bamboo flowsheet Ángel Sita DO Work Phone: [facility] Start: 07-24-2025 End: 07-24-2025 ambulatory ÁNGEL SITA Not Available Start: 07-24-2025 End: 07-24-2025 flow sheet Ángel Sita DO Work Phone: [facility] Comment on above: Third trimester preg lai ([facility]); 37 weeks gestation of ([facility]) Start: 07-22-2025 End: 07-22-2025 Clinisync Result Encounter Ángel Sita DO Work Phone: [facility] Unsolicited Start: 07-22-2025 End: 07-22-2025 Clinisync Result Encounter Ágnel Sita DO Work Phone: [facility] Unsolicited Start: 07-17-2025 End: 07-17-2025 flow sheet Ángel Sita DO Work Phone: [facility] Comment on above: 36 weeks gestation o f ([facility]); Third trimester ([facility]); History of miscarriage; Multigravida of advanced maternal age in third trimester ([facility]); Excessive growth affecting management of in third trimester, single or unspecified fetus ([facility]) Start: 07-17-2025 End: 07-17-2025 ambulatory ÁNGEL SITA Not Available Start: 07-17-2025 End: 07-17-2025 Bamboo flowsheet Ángel Sita DO Work Phone: [facility] Start: 07-17-2025 End: 07-17-2025 Bamboo flowsheet [...] Bamboo flowsheet Ángel Sita DO Work Phone: [facility] Start: 07-10-2025 End: 07-10-2025 flow sheet Ángel Sita DO Work Phone: [facility] Comment on above: Third trimester preg lai ([facility]); 35 weeks gestation of ([facility]) Start: 07-10-2025 End: 07-10-2025 ambulatory ÁNGEL SITA [...] Comment on above: Third trimester preg lai ([facility]); 33 weeks gestation of ([facility]) Start: 06-26-2025 End: 06-26-2025 ambulatory ÁNGEL [...] third trimester, single or unspecified fetus ([facility]) (Primary Dx); 31 weeks gestation of ([facility]); Third trimester ([facility]); History of miscarriage; Multigravida of advanced maternal age in third trimester ([facility]) Start: 06-12-2025 End: 06-12-2025 ambulatory ÁNGEL SITA [...] Comment on above: Third trimester preg lai ([facility]); 29 weeks gestation of ([facility]); History of miscarriage; Multigravida of advanced maternal age in third trimester ([facility]) Start: 05-30-2025 End: 05-30-2025 ambulatory ÁNGEL SITA [...] Clinisync Result Encounter Deisy MUNOZ Work Phone: [facility] External Department Unsolicited Start: 03-02-2025 End: 03-02-2025 Bamboo flowsheet Deisy MUNOZ Work Phone: [facility] Start: 03-02-2025 End: 03-09-2025 Bamboo flowsheet Deisy MUNOZ Work Phone: [facility] Start: 03-02-2025 End: 03-09-2025 Clinisync Result Encounter Deisy MUNOZ Work Phone: [facility] External Department Unsolicited Start: 03-02-2025 End: 03-03-2025 External Result Encounter Deisy MUNOZ Work Phone: [facility] Unsolicited Start: 03-02-2025 End: 03-02-2025 Patient encounter procedure Deisy MUNOZ Work Phone: [facility] Start: 03-02-2025 End: 03-02-2025 Periodic preventive med est patient 18-39 yrs Deisy MUNOZ Work Phone: [facility] Comment on above: 17 [...] 10-18-2024 ambulatory Robles Charles DO Work Phone: [facility] Work Phone: Start: 10-18-2024 End: 10-18-2024 Encounter for general adult medical examination without abnormal findings Robles Ball DO Work Phone: [facility] Start: 10-18-2024 End: 10-18-2024 Patient encounter procedure Robles Ball DO Work Phone: [facility] Work Phone: Start: 10-16-2024 Patient encounter status Jermaine randy Ball DO Work Phone: [facility] Start: 10-14-2024 Non-patient / Non-visit Benjam in Nela DO Work Phone: [facility] Work Phone: Start: 09-22-2024 End: 09-22-2024 Departed Referred DO Robles Charles Work Phone: [facility] Start: 09-22-2024 End: 09-22-2024 ambulatory DO Robles Charles Work Phone: [facility] Work Phone: Start: 09-13-2024 End: 09-13-2024 Bamboo [...] Not Available Start: 08-29-2024 End: 08-29-2024 ambulatory [facility] Work Phone: Start: 08-29-2024 End: 08-29-2024 Patient encounter procedure [facility] Work Phone: Start: 05-03-2024 End: 05-03-2024 ambulatory [facility] Work Phone: Start: 05-03-2024 End: 05-03-2024 Patient encounter procedure [facility] Work Phone: Start: 2024 End: 2024 ambulatory DO Robles Charles Work Phone: [facility] Work Phone: Start: 2024 End: 2024 Patient encounter procedure DO Robles Charles Work Phone: [facility] Work Phone: Start: 01-07-2024 End: 01-07-2024 Patient encounter procedure DO Robles Charles Work Phone: [facility] Work Phone: Start: 01-07-2024 End: 01-07-2024 ambulatory DO Robles Charles Work Phone: [facility] Work Phone: Start: 01-06-2024 End: 01-06-2024 Office outpatient visit 15 minutes Deisy MUNOZ Work Phone: [facility] Comment on above: Encounter for weight management; Hormone disorder; 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 Start: 10-02-2023 End: 10-02-2023 ambulatory Robles Charles Other [facility] Other Start: 10-02-2023 Encounter for genera l adult medical examination without abnormal findings Robles Charles [facility] Start: 10-02-2023 Periodic preventive med est patient 18-39 yrs Robles Charles [facility] Start: 09-17-2023 End: 09-17-2023 ambulatory MD Liz Conteh Work Phone: [facility] Work Phone: Start: 09-17-2023 End: 09-17-2023 Departed Referred MD Liz Conteh Work Phone: [facility]-Employee Benefit Screening Start: 01-22-2023 End: 01-22-2023 ambulatory Robles Charles Other [facility] Other Start: 01-22-2023 Office outpatient vi sit 15 minutes Robles Charles [facility] Start: 01-12-2023 End: 01-12-2023 ambulatory Robles Charles Other [facility] Other Start: 01-12-2023 Telephone encounter Robles Charles [facility] Start: 12-24-2022 End: 12-24-2022 ambulatory Robles Charles Other [facility] Other Start: 12-24-2022 Office outpatient vi sit 15 minutes Robles Charles [facility] Start: 09-30-2022 End: 09-30-2022 ambulatory Kiya Schaffer Other [facility] Other Start: 09-30-2022 Telephone encounter Kiya Schaffer [facility] Start: 09-26-2022 End: 09-26-2022 Departed Referred MD Liz Conteh Work Phone: [facility] Start: 09-26-2022 End: 09-26-2022 ambulatory MD Liz Conteh Work Phone: [facility] Work Phone: Start: 09-26-2022 Office outpatient vi sit 15 minutes Kiya Schaffer [facility] Start: 09-25-2022 ([facility] C Vac) [facility] Co vid Vaccine Subha Moralezrodrigo [facility] Start: 09-25-2022 End: 09-25-2022 ambulatory MD Liz Conteh Work Phone: [facility] Work Phone: Start: 09-25-2022 End: 09-25-2022 Patient encounter procedure MD Liz Conteh Work Phone: [facility]-Covid Vaccine Off Site Start: 08-25-2022 End: 08-25-[address] ÁNGEL SITA Facility:[facility] Start: 08-07-2022 End: 08-07-2022 Departed Referred MD Liz Conteh Work Phone: [facility]-Employee Benefit Screening Start: 06-06-2022 End: 06-07-[address] ROBLES CHARLES Facility:[facility] Start: 01-01-2022 End: 01-01-2022 ambulatory Elsi Hamond Other [facility] Other Start: 01-01-2022 Office outpatient vi sit 5 minutes Elsi Leyla [facility] Start: 12-27-2021 End: 12-27-2021 ambulatory Elsi Leyla Other [facility] [employer] Other Start: 12-27-2021 Office outpatient vi sit 15 minutes Elsi Leyla [facility] Start: 08-23-2021 ([facility] C Vac) [facility] Co vid Vaccine Subha Dillon [facility] Procedures Date Procedure Procedure Detail Performing Clinician Start: 08-08-2025 ALL CBC WITH AUTO DIFF Ángel Sita DO Work Phone: Start: 08-07-2025 [facility] UA (CLEAN/CATCH) SOFTWARE ASSET MANAGER/MICRO IF IND. 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 Work Phone: Start: 04-18-2025 ALL CBC WITH [...] 09-13-2029 Screening for malignant neoplasm of cervix [facility] Start: 03-02-2028 Screening for malignant neoplasm of cervix Pap Smear [facility] Start: 09-19-2025 End: 09-19-2025 Patient encounter procedure [facility] Start: 08-07-2025 End: 08-07-2025 Patient encounter procedure [facility] Comment on above: Arrived Start: 08-03-2025 End: 08-03-2025 Patient encounter procedure [facility] Comment on above: Arrived Start: 07-31-2025 Influenza vaccination [facility] Start: 07-24-2025 End: 07-24-2025 Patient encounter procedure 07/24/2025 11:20 AM EDT Routine [facility] [address] [place] [id number] Ángel Buckner DO [address] [place] [address] [facility] Start: 07-17-2025 End: 07-17-2025 Patient encounter procedure [facility] Comment on above: Arrived Start: 07-10-2025 End: 07-10-2026 CULTURE, GROUP B STREP WITH SUSCEPTIBLITY CULTURE, GROUP B STREP WITH SUSCEPTIBLITY Lab Routine Third trimester ([facility]) Expected: 07/10/2025, Expires: 07/10/2026 [facility] Work Phone: Comment on above: Expected: [...] third trimester, single or unspecified fetus ([facility]) Expected: 06/12/2025, Expires: 10/13/2025 [facility] Work Phone: Comment on above: Expected: 06/12/2025, Expires: Start: 05-30-2025 End: 11-30-2025 US biophysical profile w non stress test US biophysical profile w non stress test Imaging Routine History of miscarriage Multigravida of advanced maternal age in third trimester ([facility]) Expected: 05/30/2025 (Approximate), Expires: 11/30/2025 [facility] [...] EDT Ancillary Procedure [facility] [address] [place] [phone] [facility] Start: 04-03-2025 End: 04-03-2025 Patient encounter procedure 04/03/2025 9:50 AM EDT Routine [facility] [address] [place] [id number] Ángel Buckner, DO [address] [place] [address] [facility] Start: 04-03-2025 End: 04-03-2025 Professional / ancillary services management 04/03/2025 8:00 AM EDT Ancillary Procedure [facility] [address] [place] [phone] [facility] Start: 03-30-2025 End: 03-30-2026 [...] mellitus screening Expected: 03/30/2025 (Approximate), Expires: 03/30/2026 [facility] Comment on above: Expected: 03/30/2025 (Approximate), Expi res: 03/30/2026 Start: 03-30-2025 End: 06-30-2025 US for US OB limited 1+ fetuses Imaging Routine Encounter for follow-up ultrasound of anatomy Expected: 03/30/2025, Expires: 06/30/2025 [facility] Comment on above: Expected: 03/30/2025, Expires: [...] [facility] [address] [place] [phone] Deisy Villar PA [address] [place] [address] Arrived [facility] Comment on above: Arrived Start: 02-02-2025 End: 02-02-2025 Patient encounter procedure [facility] Comment on above: Arrived Start: 01-05-2025 End: 01-05-2025 ambulatory 01/05/2025 1:30 PM EST Initial [facility] [address] [place] [id number] [facility] Start: 01-05-2025 End: 01-05-2025 Professional / ancillary services management 01/05/2025 1:00 PM EST Ancillary Procedure [facility] [address] [place] [address] [facility] Start: 09-13-2024 End: 09-13-2024 Patient encounter procedure [facility] Comment on above: Arrived Start: 07-31-2024 Influenza vaccination Influenza Vaccine (#1) [facility] Start: 02-03-2024 End: 02-03-2024 Patient encounter procedure 02/03/2024 1:50 PM EST Office Visit [facility] [address] [place] [id number] Deisy Villar PA [address] [place] [address] [facility] Start: 01-07-2024 Dehydroepiandrosterone sulfate level [facility] Start: 01-07-2024 Sex hormone binding globulin measurement [facility] Start: 01-07-2024 T3 reverse measurement [facility] Start: 01-07-2024 Thyroxine measurement [facility] Start: 01-07-2024 [facility] Start: 01-06-2024 End: 01-06-2025 Anti-thyroglobulin antibody Anti-thyroglobulin antibody Lab Routine Hormone disorder Expected: 01/06/2024 (Approximate), Expires: 01/06/2025 [facility] Comment on above: Expected: 01/06/2024 (Approximate), Expi res: 01/06/2025 Start: 01-06-2024 End: 01-06-2025 C-peptide C-peptide Lab Routine Hormone disorder Expected: 01/06/2024 (Approximate), Expires: 01/06/2025 [facility] Comment on above: Expected: 01/06/2024 (Approximate), Expi res: 01/06/2025 Start: 01-06-2024 End: 01-06-2025 Cortisol free Cortisol, free Lab Routine Hormone disorder Expected: 01/06/2024 (Approximate), Expires: 01/06/2025 [facility] Comment on above: Expected: 01/06/2024 (Approximate), Expi res: 01/06/2025 Start: 01-06-2024 End: 01-06-2025 Glucose [Mass/volume] in Serum or Plasma Glucose, random Lab Routine Hormone disorder Expected: 01/06/2024 (Approximate), Expires: 01/06/2025 [facility] Comment on above: Expected: 01/06/2024 (Approximate), Expi res: 01/06/2025 Start: 01-06-2024 End: 01-06-2025 Insulin, total Insulin, total Lab Routine Hormone disorder Expected: 01/06/2024 (Approximate), Expires: 01/06/2025 [facility] Comment on above: Expected: 01/06/2024 (Approximate), Expi res: 01/06/2025 Start: 01-06-2024 End: 01-06-2025 Serotonin serum Serotonin serum Lab Routine Hormone disorder Expected: 01/06/2024 (Approximate), Expires: 01/06/2025 [facility] Comment on above: Expected: 01/06/2024 (Approximate), Expi res: 01/06/2025 Start: 01-06-2024 End: 01-06-2025 Thyroglobulin Thyroglobulin Lab Routine Hormone disorder Expected: 01/06/2024 (Approximate), Expires: 01/06/2025 [facility] Comment on above: Expected: 01/06/2024 (Approximate), Expi res: 01/06/2025 Start: 01-06-2024 End: 01-06-2025 Thyrotropin [Units/volume] in Serum or Plasma [facility] Comment on above: Ordered: 01/06/2024 Expected: 01/06/2024 (Approximate), Expires: 01/06/2025 Start: 09-17-2023 [facility] Start: 08-07-2022 [facility] Work Phone: Calcitriol [Mass/vol ume] in Serum or Plasma [facility] CHLAMYDIA TRACHOMATI S (GENITO/STI) CHLAMYDIA TRACHOMATIS (GENITO/STI) Lab Routine Exposure to STD Ordered: 03/02/2025 [facility] Comment on above: Ordered: 03/02/2025 Cytology Cervical or vaginal smear or scraping study Pap Smear Pathology and Cytology Routine Well woman exam with routine gynecological exam Ordered: 09/13/2024 [facility] Work Phone: Comment on above: Ordered: 09/13/2024 Cytology Cervical or vaginal smear or scraping study Pap Smear Pathology and Cytology Routine Well woman exam with routine gynecological exam Ordered: 03/02/2025 [facility] Comment on above: Ordered: 03/02/2025 DHEA-sulfate DHEA-sulfate Lab Routine Hormone disorder Ordered: 01/06/2024 [facility] Comment on above: Ordered: 01/06/2024 Estradiol Estradiol Lab Ro utine Hormone disorder Ordered: 01/06/2024 [facility] Work Phone: Comment on above: Ordered: 01/06/2024 Estradiol (E2) [Mass /volume] in Serum or Plasma [facility] Estrone Estrone Lab Rout ine Hormone disorder Ordered: 01/06/2024 [facility] Comment on above: Ordered: 01/06/2024 Estrone (E1) [Mass/v olume] in Serum or Plasma [facility] Ferritin [Mass/volum e] in Serum or Plasma Ferritin Lab Routine Hormone disorder Ordered: 01/06/2024 [facility] Comment on above: Ordered: 01/06/2024 Hemoglobin A1c measurement Hemog lobin A1c Lab Routine Hormone disorder Ordered: 01/06/2024 [facility] Comment on above: Ordered: 01/06/2024 Human papilloma viru s DNA [Presence] in Unspecified specimen by Probe with amplification HPV DNA probe, amplified Microbiology Routine Well woman exam with routine gynecological exam Ordered: 09/13/2024 [facility] Comment on above: Ordered: 09/13/2024 Human papilloma viru s DNA [Presence] in Unspecified specimen by Probe with amplification HPV DNA probe, amplified Microbiology Routine Well woman exam with routine gynecological exam Ordered: 03/02/2025 [facility] Comment on above: Ordered: 03/02/2025 Insulin [Units/volum e] in Serum or Plasma [facility] Neisseria gonorrhoea e DNA [Presence] in Unspecified specimen by ROB with probe detection Neisseria gonorrhea DNA probe, direct Lab Routine Exposure to STD Ordered: 03/02/2025 [facility] Comment on above: Ordered: 03/02/2025 Progesterone Progesterone Lab Routine Hormone disorder Ordered: 01/06/2024 [facility] Comment on above: Ordered: 01/06/2024 Progesterone [Mass/v olume] in Serum or Plasma [facility] Serotonin [Mass/volu me] in Plasma [facility] Sex hormone binding globulin Sex hormone binding globulin Lab Routine Hormone disorder Ordered: 01/06/2024 [facility] Comment on above: Ordered: 01/06/2024 SURESWAB(R) ADVANCED VAGINITIS PLUS, TMA SURESWAB(R) ADVANCED VAGINITIS PLUS, TMA Pathology and Cytology Routine Vaginal discharge Ordered: 03/02/2025 [facility] Work Phone: Comment on above: Ordered: 03/02/2025 T3, reverse T3, reverse Lab Routine Hormone disorder Ordered: 01/06/2024 [facility] Comment on above: Ordered: 01/06/2024 Testosterone Free [Mass/volume] in Serum or Plasma [facility] TESTOSTERONE, FREE TESTOSTERONE, FREE Lab Routine Hormone disorder Ordered: 01/06/2024 [facility] Comment on above: Ordered: 01/06/2024 Testosterone, free, total Testos terone, free, total Lab Routine Hormone disorder Ordered: 01/06/2024 [facility] Comment on above: Ordered: 01/06/2024 Throat culture Throat Culture [facility] Thyroglobulin Ab [Units/volume] in Serum or Plasma [facility] Thyroid peroxidase antibody Thyr oid peroxidase antibody Lab Routine Hormone disorder Ordered: 01/06/2024 [facility] Comment on above: Ordered: 01/06/2024 Thyroperoxidase Ab [Units/volume] in Serum or Plasma [facility] Thyroxine (T4) free [Mass/volume] in Serum or Plasma T4, free Lab Routine Hormone disorder Ordered: 01/06/2024 [facility] Comment on above: Ordered: 01/06/2024 Triiodothyronine (T3 ) Free [Mass/volume] in Serum or Plasma T3, free Lab Routine Hormone disorder Ordered: 01/06/2024 [facility] Comment on above: Ordered: 01/06/2024 Vitamin D 1,25 dihydroxy Vitamin D 1,25 dihydroxy Lab Routine Hormone disorder Ordered: 01/06/2024 [facility] Comment on above: Ordered: 01/06/2024 [facility] Work Phone: Immunizations Immunization Date Immunization Notes Care Provider Fa kaylynn 09-15-2023 influenza, injectabl e, quadrivalent, preservative free [facility] 09-15-2023 influenza virus vaccine, unspecified formulation Ángel Buckner DO Work Phone: [facility] 09-25-2022 COVID-19 Moderna (BIvalent) Kiya Schaffer Other [facility] 08-23-2021 COVID-19 Pfizer Subha Fitt Other [facility] 07-31-2021 COVID-19 Pfizer Subha Fitt Other [facility] 05-19-2021 diphtheria, tetanus toxoids and pertussis vaccine [facility] Payers Date Payer Category Payer Self-pay [id number] 2022 Private Health Insurance [employer] [id number] 2022 Unknown [employer] [id number] 2022-Present [address] [place] [address] [id number] 1990 Unknown [id number] 2.16.840.1.317428.3.579.2 .593 1990 Unknown [id number] 2.16.840.1.836350.3.579.2 .593 1990 Unknown [id number] 2.16840.1.351112.3.579.2 .1259 1990 Unknown [id number] 2.16.840.1.081923.3.579.2 .1259 1990 Unknown [id number] 2.16.840.1.062587.3.579.2 .1259 1990 Unknown [id number] 2.16.840.1.006258.3.579.2 .1259 1990 Unknown [id number] 2.16.840.1.734466.3.579.2 .1259 1990 Unknown [id number] 2.16.840.1.010820.3.579.2 .9 1990 Unknown [id number] 2.16.840.1.069784.3.579.2 .1258 1990 Unknown [id number] 2.16.840.1.657356.3.579.2 .1258 1990 Unknown [id number] 2.16.840.1.485512.3.579.2 .1258 1990 Unknown [id number] 2.16.840.1.710862.3.579.2 .1258 1990 Unknown [id number] 2.16.840.1.115467.3.579.2 .1258 1990 Unknown [id number] 2.16.840.1.850226.3.579.2 .1258 1990 Unknown [id number] 2.16.840.1.436025.3.579.2 .1258 1990 Unknown [id number] 2.16.840.1.290384.3.579.2 .1258 1990 Unknown [id number] 2.16.840.1.029919.3.579.2 .1258 1990 Unknown [id number] 2.16.840.1.646682.3.579.2 .1258 1990 Unknown [id number] 2.16.840.1.257972.3.579.2 .9 1959 Unknown [id number] 2.16.840.1.804474.19 Unknown [id number] 2.16.840.1.704927.3.579.2 .531 Unknown [id number] 2.16.840.1.391885.3.579.2 .531 Worker's Compensation [facility] t [place] [id number] Social History Date Type Detail Facility Start: 10-13-2023 End: 09-13-2024 Sex Assigned At [facility] Start: 1990 Sex Assigned At Female [facility] Start: 08-13-2023 End: 05-03-2024 Tobacco smoking [...] 10-13-2023 Alcohol Comment Caffeine intake: non e [facility] Start: 06-25-2023 Gender identity Identifies as female gender (finding) [facility] Start: 10-18-2024 Sex Female (finding) [facility] Start: 11-16-2024 [facility] Clinical Notes 08-23-2021 to 08-07-2025 Mary Lou Kearney LPN - 08/07/2025 3:00 PM Joselito Kearney, [employer] - 08/03/2025 9:10 AM Margaret Dewitt NP - 07/24/2025 11:20 AM Joselito Kearney, [employer] - 07/17/2025 2:50 PM EDT Note Date & Type Note Facility 08-07-2025 History of Presen t illness Narrative Reason [...] nursing note reviewed. Exam conducted with a electronic operator present. Vitals: Estimated body mass index is 36.34 kg/m as calculated from the following: Height as of 01/06/24: 5' 7 . Weight as of this encounter: 232 lb. BP: 130/80 Patient's last menstrual period was 11/02/2024. ASSESSMENT & PLAN ICD-10-CM 1. Third trimester ([facility]) Z34.93 POCT urinalysis dipstick manually resulted 2. 39 weeks gestation of ([facility]) Z3A.39 Patient presents today for a routine obstetrics appointment. Patient is currently 39w6d with a Estimated Date of Delivery: 08/09/25. Patient to have IOL on 08/08/25. Documented by Mary Lou Kearney LPN on behalf of: Ángel Buckner DO documented in this encounter [facility] 08-03-2025 History of Presen t illness Narrative [...] nursing note reviewed. Exam conducted with a electronic operator present. Vitals: Estimated body mass index is 36.46 kg/m as calculated from the following: Height as of 01/06/24: 5' 7 . Weight as of this encounter: 232 lb 12.8 oz. BP: 120/76 Patient's last menstrual period was 11/02/2024. ASSESSMENT & PLAN ICD-10-CM 1. Third trimester ([facility]) Z34.93 POCT urinalysis dipstick manually resulted 2. 39 weeks gestation of ([facility]) Z3A.39 POCT urinalysis dipstick manually resulted Patient presents today for a routine obstetrics appointment. Patient is currently 39w1d with a Estimated Date of Delivery: 08/09/25. Patient to have IOL on 08/08/25 0600. RTC for appointment. Documented by Mary Lou Kearney LPN on behalf of: Ángel Buckner DO documented in this encounter [facility] 07-24-2025 History of Presen t illness Narrative [...] nursing note reviewed. Exam conducted with a electronic operator present. Vitals: Estimated body mass index is 36.57 kg/m as calculated from the following: Height as of 01/06/24: 5' 7 . Weight as of this encounter: 233 lb 8 oz. BP: 118/74 Patient's last menstrual period was 11/02/2024. ASSESSMENT & PLAN ICD-10-CM 1. Third trimester ([facility]) Z34.93 POCT urinalysis dipstick manually resulted 2. 37 weeks gestation of ([facility]) Z3A.37 Return OB: Patient presents today [...] Ángel Buckner DO documented in this encounter [facility] 07-17-2025 History of Presen t illness Narrative [...] nursing note reviewed. Exam conducted with a electronic operator present. Vitals: Estimated body mass index is 36.77 kg/m as calculated from the following: Height as of 01/06/24: 5' 7 . Weight as of this encounter: 234 lb 12.8 oz. BP: 118/70 Patient's last menstrual period was 11/02/2024. ASSESSMENT & PLAN ICD-10-CM 1. 36 weeks gestation of ([facility]) Z3A.36 POCT urinalysis dipstick manually resulted 2. Third trimester ([facility]) Z34.93 POCT urinalysis dipstick manually resulted 3. History of miscarriage Z87.59 4. Multigravida of advanced maternal age in third trimester ([facility]) O09.523 5. Excessive growth affecting management of in third trimester, single or unspecified fetus ([facility]) O36.63X0 Patient presents today for a routine obstetrics appointment. Patient is currently 36w5d with a Estimated Date of Delivery: 08/09/25. Pelvic exam performed and patient is currently 2cm and 70% effaced. Patient to return to clinic in 1 week. Documented by Mary Lou Kearney LPN on behalf of: Ángel Buckner DO documented in this encounter [facility] 07-10-2025 History of Presen t illness Narrative [...] ASSESSMENT & PLAN ICD-10-CM 1. Third trimester ([facility]) Z34.93 CULTURE, GROUP B STREP WITH SUSCEPTIBLITY CULTURE, GROUP B STREP WITH SUSCEPTIBLITY 2. 35 weeks gestation of ([facility]) Z3A.35 POCT urinalysis dipstick manually resulted [...] Ángel Buckner DO documented in this encounter [facility] 06-26-2025 History of Presen t illness Narrative [...] nursing note reviewed. Exam conducted with a electronic operator present. Vitals: Estimated body mass index is 36.2 kg/m as calculated from the following: Height as of 24: 5' 7 . Weight as of this encounter: 231 lb 1.9 oz. BP: 116/74 Patient's last menstrual period was 11/02/2024. ASSESSMENT & PLAN (Z34.93) Third trimester ([facility]) Plan: POCT urinalysis dipstick manually resulted (Z3A.33) 33 weeks gestation of ([facility]) Plan: POCT urinalysis dipstick manually resulted Patient presents today for a routine obstetrics appointment. Patient is currently 33w5d with a Estimated Date of Delivery: 08/09/25. Patient to return to clinic in 2 weeks for GBS. Documented by Mary Lou Kearney LPN on behalf of: Ángel Buckner DO documented in this encounter [facility] 06-12-2025 History of Presen t illness Narrative [...] third trimester, single or unspecified fetus ([facility]) O36.63X0 US OB follow up transabdominal approach 2. 31 weeks gestation of ([facility]) Z3A.31 POCT urinalysis dipstick manually resulted 3. Third trimester ([facility]) Z34.93 POCT urinalysis dipstick manually resulted 4. History of miscarriage Z87.59 5. Multigravida of advanced maternal age in third trimester ([facility]) O09.523 Return OB: Patient presents today for [...] Ángel Buckner DO documented in this encounter [facility] 05-30-2025 History of Presen t illness Narrative [...] nursing note reviewed. Exam conducted with a electronic operator present. Vitals: Estimated body mass index is 35.52 kg/m as calculated from the following: Height as of 01/06/24: 5' 7 . Weight as of this encounter: 226 lb 12.8 oz. BP: 120/78 Patient's last menstrual period was 11/02/2024. ASSESSMENT & PLAN ICD-10-CM 1. Third trimester ([facility]) Z34.93 POCT urinalysis dipstick manually resulted 2. 29 weeks gestation of ([facility]) Z3A.29 POCT urinalysis dipstick manually resulted 3. History of miscarriage Z87.59 4. Multigravida of advanced maternal age in third trimester ([facility]) O09.523 Return OB: Patient presents today [...] Ángel Buckner DO documented in this encounter [facility] 05-01-2025 History of Presen t illness Narrative [...] nursing note reviewed. Exam conducted with a electronic operator present. Vitals: Estimated body mass index is [...] Edson Dewitt NP documented in this encounter [facility] 03-30-2025 History of Presen t illness Narrative [...] nursing note reviewed. Exam conducted with a electronic operator present. Vitals: Estimated body mass index is [...] Ángel Buckner DO documented in this encounter [facility] 03-02-2025 History of Presen t illness Narrative [...] Diagnosis Date Fatigue GARTH (generalized anxiety disorder) ([facility]) Hyperlipidemia ([facility]) Paronychia, finger HISTORY PAST MEDICAL HISTORY SOCIAL [...] nursing note reviewed. Exam conducted with a electronic operator present. Vitals: Estimated body mass index is [...] obtained without difficulty [facility]. Orders Placed This [...] of: ALEXANDER Gramajo documented in this encounter [facility] 02-02-2025 History of Presen t illness Narrative [...] Ángel Buckner DO documented in this encounter [facility] 09-13-2024 History of Presen t illness Narrative [...] nursing note reviewed. Exam conducted with a electronic operator present. Vitals: Estimated body mass index is [...] Ángel Buckner DO documented in this encounter [facility] 01-06-2024 History of Presen t illness Narrative [...] Diagnosis Date Fatigue GARTH (generalized anxiety disorder) ([facility]) Hyperlipidemia ([facility]) Paronychia, finger Family History Problem Relation Name [...] of: ALEXANDER Gramajo documented in this encounter [facility] 10-02-2023 Evaluation note Encounter Date Diagnosis Assessment [...] prior to bedtime. Weight loss. Pepcid PRN [facility] Other 2023 Evaluation note* Encounter Date Diagnosis Assessment Notes Treatment Notes Treatment Clinical Notes Dec, Nasal turbinate hypertrophy (ICD-10 - J34.3) FLonase, saline NS, Sudafed and avoid use of Afin. Refer to ENT. Dec, Nonallergic vasomotor rhinitis (ICD-10 - J30.0) Prednisone tapered over 8 days. Claritin as needed. [facility] Other 02-13-2023 Evaluation note* Encounter Date Diagnosis Assessment Notes Treatment Notes Treatment Clinical Notes Dec, Acute non-recurrent maxillary sinusitis (ICD-10 - J01.00) [facility] Other 01-25-2023 Evaluation note* Encounter Date Diagnosis Assessment Notes Treatment Notes Treatment Clinical Notes Nov, Acute non-recurrent maxillary sinusitis (ICD-10 - J01.00) Instructed to use Robitussin or Mucinex for cough, saline or Flonase NS for congestion, Tylenol for pain and fever. [facility] Other 10-28-2022 Evaluation note* Encounter Date Diagnosis [...] (suspected) exposure to covid-19 (ICD-10 - Z20.822) [facility] Other 10-27-2022 Evaluation note* Encounter Date Diagnosis Assessment Notes Treatment Notes Treatment Clinical Notes Aug, Encounter for immunization (ICD-10 - Z23) Patient presents today for COVID-19 vaccination booster. Patient pre-vaccination form answers reviewed. Patient denies current illness or allergic reaction to any component of a COVD-19 vaccine. Patient provided with copy of current EUA. [facility] Other 02-02-2022 Evaluation note* Encounter Date Diagnosis [...] Patient care instructions given in writting by [facility] document. Additional time spent conducting pre-visit phone call, screening for symptoms, instructions on social distancing, application and removal of PPE, and cleaning of examination room, equipment and supplies was preformed. Patient education given for testing methodology and results. Patient care instructions given in writting by [facility] document. [facility] Other 01-28-2022 Evaluation note* Encounter Date Diagnosis [...] Patient care instructions given in writting by [facility] document. [facility] Other 09-24-2021 Evaluation note* Encounter Date Diagnosis Assessment Notes Treatment Notes Treatment Clinical Notes Jul, Encounter for immunization (ICD-10 - Z23) Patient presents for COVID-19 vaccination #2. Pre-screening form answers evaluated with patient. Patient denies current illness or allergic reaction to component of COVID-19 vaccine. Patient provided with current copy of EUA. [facility] Other Evaluation noteNo assessment information available [facility] Work Phone: Evaluation noteNo InformationNort [employer] Other Evaluation note* Diagnosis Encounter for weight management Hormone disorder Unspecified endocrine disorder 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 [facility] Diagnosis Well woman exam with routine gynecological exam Routine gynecological examination [facility] Diagnosis Onset Date Resolution Status Admit Date Hypercholesteremia acute Novemb er 2023 11:13am Wellness examination acute Nove mber 2023 11:13am [facility] Work Phone: Evaluation note* Diagnosis 13 [...] know Surgical history Hospitalization History see above [facility] Other History general Narrative - Reported* Type Description Date Medical History Child X2 Natural Surgical History No Surgical history information Hospitalization History see above [facility] Other History general Narrative - Reported* Type Description Date Medical History Child X2 Natural Medical History Body mass index (BMI) of 25.0 to 29.9 Medical History Fatigue Medical History Hyperlipidemia, group A Medical History GARTH (generalized anxiety disorde r) Surgical History No know Surgical history Hospitalization History No know Hospitalization history [facility] Other Chief Complaint and Reason for Visit [...] turbinate hype rtrophy (J34.3) Referral Organization [facility] Nela russo Referring Provider First Name Robles Referring Provider Last Name Nela Referring Provider Specialty Internal Me dicine Referred Organization [facility] Referred Provider Robles Hernandez Referred Address ,[place], [place],[address] Referred Provider Specialty Otolaryngolo gy Referral Priority Routine Referral Appointment Date 2023-02-04 General Notes Rosangela Cruz 09:25:33 AM >received today, notes locked, insurance card attached, referral faxed Rosangela Cruz 01/29/2023 12:42:25 PM >Shannan at Dr. Rodriges office requested referral be faxed again to [phone]. done! Rosangela Cruz 02/05/2023 02:23:23 PM >notes [...] Primary Care Provider Active Delano Francis DO [facility] Attending Provider Active Team Status: [...] January 07, 2024 End: January 07, 2024 Vallez Filter Operator Relationship Specialty Start Date End Date Robles Charles MD [address] [place] [address] PCP - General Internal Medicine 07/30/23 Team Status: Inactive Member Role Status Dates Robles Charles DO Primary Care Provide r, Attending Provider Active Start: 2024 End: 2024 Team Status: Inactive Member Role Status Dates Robles Charles DO Primary Care Provider Active Start: May 03, 2024 End: May 03, 2024 Caro Chacon APRN ANIMAL CARE SERVICE WORKER-C Attending Provider Act alex Start: May 03, 2024 End: May 03, 2024 Team Status: Inactive Member Role Status Dates Robles Charles DO Primary Care Provide r, Attending Provider Active Start: August 29, 2024 End: August 29, 2024 Vallez Filter Operator Relationship Specialty Start Date End Date Robles Charles MD [address] [place] [address] PCP - General Internal Medicine 07/30/23 Deisy Villar PA [address] [place] [address] [place] [address] PCP - Medical [place] [employer] 11/30/23 11/29/99 Vallez Filter Operator Relationship Specialty Start Date End Date Robles Charles MD [address] [place] [phone] PCP - General Internal Medicine 07/30/23 Deisy Villar PA [address] [place] [address] [place] [address] PCP - Medical [place] [employer] 11/30/23 11/29/99 Vallez Filter Operator Relationship Specialty Start Date End Date Robles Charles MD [address] [place] [address] PCP - General Internal Medicine 07/30/23 Deisy Villar PA [address] [place] [address] [place] [address] PCP - Medical [place] [employer] 11/30/23 11/29/99 Team Status: Inactive Member Role Status Dates Robles Charles DO Primary Care Provider Active Start: September 22, 2024 End: September 22, 2024 Delano Francis - [facility] , DO [facility] Attending Provider Active Start: September 22, 2024 End: September 22, 2024 Team Status: Active Member Role Status Dates Robles Charles DO Primary Care Provide r, Attending Provider Active Start: October 14, 2024 Team Status: Inactive Member Role Status Dates Robles Charles DO Primary Care Provide r, Attending Provider Active Start: October 18, 2024 End: October 18, 2024 Vallez Filter Operator Relationship Specialty Start Date End Date Robles Charles MD [address] [place] [address] PCP - General Internal Medicine 07/30/23 Deisy Villar PA [address] [place], [place] [address] [address] PCP - Medical [place] [employer] 11/30/23 11/29/99 Vallez Filter Operator Relationship Specialty Start Date End Date Robles Charles MD [address] [place] [address] PCP - General Internal Medicine 07/30/23 Deisy Villar PA [address] [place] [address] [place] [address] PCP - Medical [place] [employer] 11/30/23 11/29/99 Vallez Filter Operator Relationship Specialty Start Date End Date Robles Charles MD [address] [place] [address] PCP - General Internal Medicine 07/30/23 Deisy Villar PA [facility] [place] [address] PCP - Medical [place] [employer] 11/30/23 11/29/99 Vallez Filter Operator Relationship Specialty Start Date End Date Robles Charles MD [address] [facility] [place] [address] PCP - General Internal Medicine 07/30/23 Deisy Villar PA [address] [place] [address] Dr [place], [place] [id number] PCP - Medical [place] [employer] 11/30/23 11/29/99 Vallez Filter Operator Relationship Specialty Start Date End Date Robles Charles MD PCP - General Internal Medicine 07/30/23 Deisy Villar PA [address] [place] [address] Dr [place], [place] [id number] PCP - Medical [place] [employer] 11/30/23 11/29/99 Vallez Filter Operator Relationship Specialty Start Date End Date Robles Charles DO PCP - General Internal Medicine 07/30/23 Deisy Villar, PA [address] [place] [address] [place] [address] PCP - Medical [place] [employer] 11/30/23 11/29/99 Vallez Filter Operator Relationship Specialty Start Date End Date Robles Charles DO [address] [place] [address] PCP - General Internal Medicine 07/30/23 Deisy Villar PA [address] [place] [address] [place] [address] PCP - Medical [place] [employer] 11/30/23 11/29/99 Vallez Filter Operator Relationship Specialty Start Date End Date Robles Charles DO [address] [facility] [place] [address] PCP - General Internal Medicine 07/30/23 Deisy Villar PA [address] [place] [address] PCP - Medical [place] [employer] 11/30/23 11/29/99 Vallez Filter Operator Relationship Specialty Start Date End Date Robles Charles DO [address] [facility] [place] [address] PCP - General Internal Medicine 07/30/23 Deisy Villar PA [address] [place] [address] [place] [address] PCP - Medical [place] [employer] 11/30/23 11/29/99 Vallez Filter Operator Relationship Specialty Start Date End Date Robles Charles DO [address] [facility] [place] [address] PCP - General Internal Medicine 07/30/23 Deisy Villar PA [address] [place] [address] [place] [address] PCP - Medical [place] [employer] 11/30/23 11/29/99 Vallez Filter Operator Relationship Specialty Start Date End Date Robles Charles DO [address] [facility] [place] [address] PCP - General Internal Medicine 07/30/23 Deisy Villar, PA [address] [place], [place] [phone] PCP - Medical [place] [employer] 11/30/23 11/29/99 Vallez Filter Operator Relationship Specialty Start Date End Date Robles Charles DO [address] [place] [facility] [place] [address] PCP - General Internal Medicine 07/30/23 Deisy Villar PA [address] [place], [place] [phone] PCP - Medical [place] [employer] 11/30/23 11/29/99 Vallez Filter Operator Relationship Specialty Start Date End Date Robles Charles DO [address] [place] [address] PCP - General Internal Medicine 07/30/23 Deisy Villar PA [address] [place], [place] [address]justus Ram[place], [facility] PCP - Medical [place] [employer] 11/30/23 11/29/99 Vallez Filter Operator Relationship Specialty Start Date End Date Robles Charles DO [address] [place] [facility] [place] [address] PCP - General Internal Medicine 07/30/23 Deisy Villar, PA [address] [place], [place] [address]just[address] [place], [place] [address] PCP - Medical [place] [employer] 11/30/23 11/29/99 Vallez Filter Operator Relationship Specialty Start Date End Date Robles Charles DO [address] [place] [address] PCP - General Internal Medicine 07/30/23 Deisy Villar PA [facility] [place], [place] [phone] PCP - Medical [place] [employer] 11/30/23 11/29/99 Vallez Filter Operator Relationship Specialty Start Date End Date Robles Charles DO [address] [place] [address] PCP - General Internal Medicine 07/30/23 Deisy Villar PA [address] [place] [address] [place] [address] PCP - Medical [employer] [place] [employer] 11/30/23 11/29/99 Vallez Filter Operator Relationship Specialty Start Date End Date Robles Charles DO [address] [place] [address] PCP - General Internal Medicine 07/30/23 Deisy Villar PA [address] [place] [address] [place] [address] PCP - Medical [place] [employer] 11/30/23 11/29/99 Vallez Filter Operator Relationship Specialty Start Date End Date Robles Charles DO [address] [place] [address] PCP - General Internal Medicine 07/30/23 Deisy Villar PA [address] [place] [address] [place] [address] PCP - Medical [employer] 11/30/23 11/29/99 Goals (unrecognized section and content) Goals may be documented in a n alternate section INFORMATION SOURCE (unrecogn ized section and content) DATE CREATED AUTHOR 09/02/2022 [facility] DATE CREATED AUTHOR AUTHOR'S ORGANIZ ATION 09/23/2024 [facility] DATE CREATED AUTHOR AUTHOR'S ORGANIZ ATION 08/09/2025 [facility] PSYCHIATRIC FOR RECORDS PERTAINING TO PATIENTS WHO ARE [...] BE BASED ON THE PRIMARY CLINICAL RECORDS. [facility] [employer] [facility]. provides no warranty or guarantee of the accuracy or completeness of information in this document.
--- NOTE | 2025-08-11 14:54 | PC.NURSE ---
1400 - Pt states she is feeling well & declines a visit until after Thursday when the baby has her tongue tie fixed. States that she has found a couple nursing positions that are not painful & baby is nursing adequately. Instructed to call on Thursday after the baby's tongue clipping & schedule an appt. with Leanne Rose RN, IBCLC. Pt agrees.
== END 2025-08-11 14:15 | disposition home or self-care (01) ==
LOC: FBCO 09:58
PROVIDERS: PCP Internal Medicine; Visit Provider Obstetrics & Gynecology
DX: Z39.1 Encounter for care and examination of lactating mother (principal)

== ENCOUNTER 2025-08-21 09:12 | Outpatient (OUT) | payer OTHER, SELFPAY ==
--- OUTSIDE RECORDS SUMMARY | 2025-08-07 15:00 | XMS_ITS | Encounter Summary ---
Author Organization [facility] Address [address] [place] [address] Care Team Providers Care Service Consultant Name Role Phone Melvin Robles Jerome DO Primary Care Provider [phone] Deisy Haji Unavailable Reason for Visit * Reason Comments Routine Visit Encounter Details Date Type Department Care Team (Late st Contact Info) Description 08/07/2025 3:00 PM EDT Routine [facility] [address] [facility] [place] [phone] Ángel Buckner DO [address] [facility] [address] Arash Kaur, [facility]11 Third trimester ([facility]); 39 weeks gestation of ([facility]) Social History Tobacco Use Types Packs/Day [...] more drinks on one occasion? Never 10/13/2023 Comments Yes Sex and Gender Information Value Date Recorded [...] Notes * Mary Lou Kearney LPN - 08/07/2025 3:00 PM EDT Reason for [...] nursing note reviewed. Exam conducted with a ammonia technician present. Vitals: Estimated body mass index is 36.34 kg/m?? as calculated from the following: Height as of 01/06/: 5' 7 . Weight as of this encounter: 232 lb. BP: 130/80 Patient's last menstrual period was 11/02/2024. ASSESSMENT & PLAN ICD-10-CM 1. Third trimester ([facility]) Z34.93 POCT urinalysis dipstick manually resulted 2. 39 weeks gestation of ([facility]) Z3A.39 Patient presents today for a routine [...] Visit [facility] [address] [place] [phone] Ángel Buckner DO [address] [place] [address] documented as of this encounter Procedures Procedure Name Priority Date/Time Associated Diagnosis Comments POCT URINALYSIS DIPSTICK Routine 08/07/2025 3:41 PM EDT Third trimester ([facility]) documented in this encounter Results [...] this encounter Visit Diagnoses Diagnosis Third trimester ([facility]) state, incidental 39 weeks gestation of ([facility]) documented in this encounter Care Teams Service Consultant Relationship Specialty [place] [address] [place] [address] [place] [address] PCP - General Internal Medicine 07/30/23 Deisy Haji PA [address] [place] [address] [place] [address] PCP - Medical [place] [employer] 11/30/23 11/29/99 documented as of this encounter
--- OUTSIDE RECORDS SUMMARY | 2025-08-21 09:16 | XMS_ITS | Encounter Summary ---
Author Organization [facility] Address [address] [place] [address] Care Team Providers Care Drawer In Jacquard Loom Name Role Phone MelvinRobles Primary Care Provider Deisy Haji Unavailable Encounter Details Date Type Department Care Team (Late Contact Info) Description 08/06/2023 Clinisync Result Encounter NOMS External Department Unsolicited Le Buckner DO [address] [place] [address] Social History Tobacco Use Types Packs/Day [...] EDT Office Visit NOMSheree Kaur OBGYManuel [address] [facility] [place] [address] Le Buckner DO [address] [place] [address] [phone] (work) documented as of this encounter Procedures Procedure Name Priority Date/Time Associated Diagnosis Comments US OB TRANSVAGINAL 08/06/2023 4: 44 PM EDT documented in this encounter Results * US OB TRANSVAGINAL (08/06/2023 4:44 PM EDT) Anatomical Region Laterality Modality Other 08/06/2023 4:44 PM EDT Narrative 08/06/2023 4:44 [place] [address] Ultrasound Report Signed Patient: Phillip Hernandez MR#: [id number] : 1990 Acct:[id number] Age/Sex: 33 / F ADM Date: 08/06/23 Loc: US Attending Dr: Le Buckner D.O. Ordering Physician: Le Buckner D.O. Date of Service: 08/06/23 Procedure(s): US OB transvaginal Accession Number(s): [id number] cc: Le Buckner D.O.; Physician,Non-Staff MJennifer [address] [address] Patient Name: PHILLIP HERNANDEZ MRN: [id number] date: 1990 Sex: F Assigned Patient Location: US Current Patient Location: US Accession/Order Number: [id number] Exam Date: 08/06/2023 09:32 Report Date: 08/06/2023 [...] M.D. Signed By: 08/06/231646 DD/ 43 TD/TT: Slate Trimmer: Procedure Note Radiology, Radiologist, - 08/21/2023 [place] [address] Ultrasound Report Signed Patient: Phillip Hernandez LMR#: [id number] : 1990Acct:[id number] Age/Sex: 33 / FADM Date: 08/06/23 Loc: US Attending Dr: Le Buckner D.O. Ordering Physician: Le Buckner D.O. Date of Service: 08/06/23 Procedure(s): US OB transvaginal Accession Number(s): [id number] cc: Le Buckner D.O.; Physician,Non-Staff Lauri The [place] [id number] Patient Name: PHILLIP HERNANDEZ MRN: [id number] date: 1990 Sex: F Assigned Patient Location: US Current Patient Location: US Accession/Order Number: [id number] Exam Date: 08/06/2023 09:32 Report Date: 08/06/2023 [...] M.D. Signed By:08/06/23 1647 DD/ 1644 TD/TT: Slate Trimmer: Le Buckner DO [facility] IMAGING Final Result documented in this encounter Visit Diagnoses Not on filedocumented in this encounter Care Teams Drawer In Jacquard Loom Relationship Specialty Start Date End Date Robles Charles DO [address] [facility] [place] [address] PCP - General Internal Medicine 07/30/23 Deisy Haji PA [address] [facility] [place] [address] PCP - Medical [place] [employer] 11/30/23 11/29/99 documented as of this encounter
--- OUTSIDE RECORDS SUMMARY | 2025-08-21 09:16 | XMS_ITS | Clinical Summary ---
Author Organization [facility] Address [address] [place] [address] Care Team Providers Care Human Services Case Manager Name Role Phone MelvinRobles Justus CRESPO Primary Care Provider [phone] Deisy Haji Unavailable Allergies Active Allergy Reactions [...] 3:00 PM EDT Routine N[facility]S Natasha OBGYManuel [address] [place] [address] [place] [address] Le Buckner DO Third trimester ([facility]); 39 weeks gestation of ([facility]) 08/07/2025 Clinisync Result Encounter NOMS External Department Unsolicited Le Buckner, DO 08/07/2025 Bamboo flowsheet [facility] Dean [facility] [place] [address] Le Buckner, DO 08/05/2025 Clinisync Result Encounter NOMS External Department Unsolicited Le Buckner, DO 08/03/2025 9:10 AM EDT Routine NOMS Natasha FROSTGYManuel [place] [address] Le Buckner, DO Third trimester ([facility]); 39 weeks gestation of ([facility]) 08/03/2025 Bamboo flowsheet NOMS Nat[place] [address] Le Buckner, DO 07/29/2025 Clinisync Result Encounter NOMS External Department Unsolicited Le Buckner, DO 07/24/2025 11:20 AM EDT Routine [facility] Natasha Dean [facility] [place] [address] Le Buckner, DO Third trimester ([facility]); 37 weeks gestation of ([facility]) 07/24/2025 Bamboo flowsheet [facility] Natasha Dean [facility] [place] [address] Le Buckner, DO 07/22/2025 Clinisync Result Encounter NOMS External Department Unsolicited Le Buckner, DO 07/17/2025 2:50 PM [place] [address] Le Buckner, DO 36 weeks gestation of ([facility]); Third trimester ([facility]); History of miscarriage; Multigravida of advanced maternal age in third trimester ([facility]); Excessive growth affecting management of in third trimester, single or unspecified fetus ([facility]) 07/17/2025 [place] [address] Le Buckner, DO 07/15/2025 Clinisync Result Encounter NOMS External Department Unsolicited Le Buckner, DO 07/10/2025 1:50 PM [place] [address] Le Buckner, DO Third trimester ([facility]); 35 weeks gestation of ([facility]) 07/10/2025 [place] [address] Le Buckner, DO 07/08/2025 Clinisync Result Encounter NOMS External Department Unsolicited Le Buckner, DO 07/01/2025 Clinisync Result Encounter NOMS External Department Unsolicited Le Buckner, DO 06/26/2025 1:10 PM [place] [address] Le Buckner, Third trimester ([facility]); 33 weeks gestation of ([facility]) 06/26/2025 11:30 AM EDT Ancillary [place] [address] Excessive growth affecting management of in third trimester, single or unspecified fetus ([facility]) 06/24/2025 Clinisync Result Encounter NOMS External Department Unsolicited Le Buckner, DO 06/17/2025 Clinisync Result Encounter NOMS External Department Unsolicited Le Buckner, DO 06/12/2025 2:10 PM [place] [address] Le Buckner DO Excessive growth affecting management of in third trimester, single or unspecified fetus ([facility]) (Primary Dx); 31 weeks gestation of ([facility]); Third trimester ([facility]); History of miscarriage; Multigravida of advanced maternal age in third trimester ([facility]) 06/12/2025 Bamboo flowsheet NOMS Natasha CARRASQUILLO [address] [facility] [place] [address] Le Buckner DO 06/10/2025 Clinisync Result Encounter NOMS External Department Unsolicited Le Buckner, 06/03/2025 Clinisync Result Encounter NOMS External Department Unsolicited Le Buckner, 05/30/2025 8:50 AM [place] [address] Le Buckner DO Third trimester ([facility]); 29 weeks gestation of ([facility]); History of miscarriage; Multigravida of advanced maternal age in third trimester ([facility]) 05/30/2025 Bamboo flowsheet NOMS Nat[place] [address] Le Buckner DO from Last 3 Months [...] drinks on one occasion? Never 10/13/2023 Comments No Sex and Gender Information Value Date Recorded [...] EDT Office Visit NOMS Natasha OBGYN [address] [facility] [place] [address] Le Buckner DO [address] [facility] [address] Ar[address] [place], [place] [address] Health Maintenance Due Date Last Done Comments Influenza Vaccine (#1) 2025 09/15/2023 Pap Smear 03/02/2028 03/02/2025, 09/13/2024, 05/31 Cervical Cancer Screening 09/13/2029 HPV/Cotest 09/13/2029 Procedures Procedure Name Priority Date/Time Associated Diagnosis Comments ALL CBC WITH AUTO DIFF Routine 6:39 AM EDT [facility] URINE MICROSCOPIC ONLY Routine 08/07/2025 9:10 PM EDT [facility] DRUG SCREEN RAPID (URINE) Routine 08/07/2025 9:10 PM EDT ALL CBC WITH AUTO DIFF Routine 9:10 PM EDT [facility] UA (CLEAN/CATCH) FIELD CONTACT TECHNICIAN/MICRO IF IND. Routine 08/07/2025 9:10 PM EDT POCT URINALYSIS DIPSTICK Routine 08/07/2025 3:41 PM EDT Third trimester ([facility]) US OB BPP W NON-STRESS 08/05/2025 9:03 AM EDT POCT URINALYSIS DIPSTICK Routine 08/03/2025 9:37 AM EDT Third trimester ([facility]) 39 weeks gestation of ([facility]) US OB BPP W NON-STRESS 07/29/2025 11:10 AM EDT POCT URINALYSIS DIPSTICK Routine 07/24/2025 11:38 AM EDT Third trimester ([facility]) US OB BPP W NON-STRESS 07/22/2025 5:02 PM EDT POCT URINALYSIS DIPSTICK Routine 07/17/2025 3:05 PM EDT 36 weeks gestation of ([facility]) Third trimester ([facility]) US OB BPP W NON-STRESS 07/15/2025 9:18 AM EDT POCT URINALYSIS DIPSTICK Routine 07/10/2025 2:03 PM EDT 35 weeks gestation of ([facility]) CULTURE, GROUP B STREP WITH SUSCEPTIBLITY Routine 07/10/2025 1:45 PM EDT Third trimester ([facility]) US OB BPP W NON-STRESS 07/08/2025 9:19 AM EDT US OB BPP W NON-STRESS 07/01/2025 8:07 PM EDT POCT URINALYSIS DIPSTICK Routine 06/26/2025 1:26 PM EDT Third trimester ([facility]) 33 weeks gestation of ([facility]) US OB FOLLOW UP TRANSABDOMINAL APPROACH Routine 06/26/2025 11:22 AM EDT Excessive growth affecting management of in third trimester, single or unspecified fetus ([facility]) US OB BPP W NON-STRESS 06/24/2025 9:34 AM EDT US OB BPP W NON-STRESS 06/17/2025 9:20 AM EDT US OB BPP W NON-STRESS 06/10/2025 6:38 PM EDT US OB BPP W NON-STRESS 06/03/2025 2:23 PM EDT POCT URINALYSIS DIPSTICK Routine 05/30/2025 9:17 AM EDT Third trimester ([facility]) 29 weeks gestation of ([facility]) PAP SMEAR Routine 03/02/2025 12:00 AM EDT [...] CLINISYNC - 08/08/2025 7:04 AM EDT us Le Buckner DO CLINISYNC Final Result [facility] * (ABNORMAL) [facility] URINE MICROSCOPIC ONLY (08/07/2025 [...] Le Sita DO CLINISYNC Final Result [facility] * (ABNORMAL) [facility] UA (CLEAN/CATCH) FIELD CONTACT TECHNICIAN/MICRO IF IND. (08/07/2025 9:10 PM EDT) COLOR [...] Narrative CLINISYNC - 08/07/2025 9:46 PM EDT Lebrooke Lopezo DO CLINISYNC Final Result [facility] * [facility] DRUG SCREEN RAPID (URINE) [...] Le Sita DO CLINISYNC Final Result [facility] * (ABNORMAL) POCT urinalysis dipstick manually resulted [...] Positive Urine 08/07/2025 3:41 PM EDT Le Buckner DO POINT OF CARE TEST ENTER/EDIT OR DERABLES Final Result * US OB BPP W NON-STRESS (08/05/2025 9:03 AM EDT) Only the most recent of10 resultswithin the time period is included. Anatomical Region Laterality Modality Other 08/05/2025 9:03 AM EDT Narrative 08/05/2025 9:05 AM EDT [address] [address] Ultrasound Report Signed Patient: PHILLIP REYES MR#: [id number] : 1990 Acct:[id number] Age/Sex: 35 / F ADM Date: 08/05/25 Loc: [facility] 250-[address]: Le Buckner D.O. Ordering Physician: Le Buckner D.O. Date of Service: 08/05/25 Procedure(s): US OB BPP w non-stress Accession Number(s): [id number] cc: Robles Charles D.O.; Le Buckner D.O. [place] [id number] Patient Name: PHILLIP REYES MRN: [id number] date: 1990 Sex: F Assigned Patient Location: [facility] Current Patient Location: [facility] Accession/Order Number: [id number] Exam Date: 08/05/2025 08:35 Report Date: 08/05/2025 09:03 At the request of: LE BUCKNER DO Procedure: US OB BPP w non-stress Biophysical profile. Reason for exam: History of miscarriage. COMPARISON: 07/29/2025 TECHNIQUE: Transabdominal imaging of the gravid uterus was obtained. FINDINGS: The printing and stamping supervisor reports a BPP of 8 out of 8. MARTY is normal at 12.6 cm. heart rate 132 bpm. US/US OB BPP w non-stress IMPRESSION: BPP 8 out of 8. Impression dictated by: Justin Mack Jr., D.O. 08/05/2025 9:03 AM Dictation Location: [place] [address] Electronically authenticated by: [id number] Y Date: 08/05/2025 09:03 Dictated By: Justin Mack M.D. Signed By: 08/05/25904 DD/ 2 TD/TT: Procurement Officer: Procedure Note Radiology, Radiologist, MD - 08/05/[address] [address] Ultrasound Report Signed Patient: PHILLIP REYES LMR#: [id number] : 1990Acct:[id number] Age/Sex: 35 / FADM Date: 08/05/25 Loc: [facility] 250-[address]: Le Buckner D.O. Ordering Physician: Le Buckner D.O. Date of Service: 08/05/25 Procedure(s): US OB BPP w non-stress Accession Number(s): [id number] cc: Robles Charles D.O.; Le Buckner D.O. The [place] [id number] Patient Name: PHILLIP REYES MRN: [id number] date: 1990 Sex: F Assigned Patient Location: [facility] Current Patient Location: [facility] Accession/Order Number: [id number] Exam Date: 08/05/2025 08:35 Report Date: 08/05/2025 09:03 At the request of: LE BUCKNER DO Procedure: US OB BPP w non-stress Biophysical profile. Reason for exam: History of miscarriage. COMPARISON: 07/29/2025 TECHNIQUE: Transabdominal imaging of the gravid uterus was obtained. FINDINGS: The printing and stamping supervisor reports a BPP of 8 out of 8. MARTY is normal at12.6 cm. heart rate 132 bpm. US/US OB BPP w non-stress IMPRESSION: BPP 8 out of 8. Impression dictated by: Justin Mack Jr., D.O. 08/05/2025 9:03 AM Dictation Location: [place] [address] Electronically authenticated by: [id number] Y Date: 9:03 Dictated By: Justin Mack M.D. Signed By:08/05/25904 DD/ 2 TD/TT: Procurement Officer: us Le Buckner DO [facility]AG[facility] Final [...] II, MD, PHD at 26-Jun-2025 11:42:39 PM [facility] Procedure Note Evelyne Ramsey MD - [...] signed by EVELYNE RAMSEY II, MD, PHD [id number] 11:42:39 PM [facility] us Deisy MUNOZ IMG OB US PROCEDURES Final Resul t * Pap Smear (03/02/2025 12:00 AM EDT) Swab Cervical swab / Unknown us Sita Johns [facility] Ob LAB CYTOLOGY ORDERABLES Final Result EXTERNAL LAB from Last 3 Months or Most Recently Relevant to Health Maintenance Insurance [employer] Care Teams Human Services Case Manager Relationship Specialty Start Date End Date Robles Charles DO [address] [facility] [place] [address] PCP - General Internal Medicine 07/30/23 Deisy Haji PA [address] [place] [address] [place] [address] PCP - Medical [place] [employer] 11/30/23 11/29/99
--- OUTSIDE RECORDS SUMMARY | 2025-08-21 09:16 | XMS_ITS | Encounter Summary ---
Author Organization [facility] Address [address] [place] [address] Care Team Providers Care Director Corporate Sales Name Role Phone MelvinRobles Primary Care Provider [phone] Deisy Haji Unavailable Encounter Details Date Type Department Care Team (Late st Contact Info) Description 08/08/2025 Clinisync Result Encounter NOMS External Department Unsolicited Ángel Buckner DO [address] [place], [place] [id number] Social History Tobacco Use Types Packs/Day Years [...] EDT Office Visit NOMSheree [place]aur OBGYManuel 102 [employer] [address] Ángel Buckner, DO [address] [place] [address] Dr Antoine [place] [id number] documented as of this encounter Procedures Procedure [...] us Ángel Sita DO CLINISYNC Final Result [facility] documented in this encounter Visit Diagnoses Not on filedocumented in this encounter Care Teams Director Corporate Sales Relationship Specialty [place] [address] [place] [address] [place] [address] PCP - General Internal Medicine 07/30/23 Deisy Haji PA [address] [place] [address] [place] [address] PCP - Medical [place] [employer] 11/30/23 11/29/99 documented as of this encounter
--- OUTSIDE RECORDS SUMMARY | 2025-08-21 09:16 | XMS_ITS | Encounter Summary ---
Author Organization [facility] Address [address] [place] [address] Care Team Providers Care Schedule Supervisor Name Role Phone MelvinRobles Justus CRESPO Primary Care Provider [phone] Deisy Haji Unavailable Encounter Details Date Type Department Care Team (Late Contact Info) Description 08/07/2025 Bamboo flowsheet HERBIE CARRASQUILLO [address] [place] [place] [address] Ángel Buckner DO [address] [facility] [address] Arash [place], [id number] Social History Tobacco Use Types Packs/Day Years [...] 09/19/2025 8:30 AM EDT Office Visit HERBIE FISHERN [address] [place] [address] Ángel Buckner DO [address] [facility] [address] [place], [place] [address] documented as of this encounter Visit Diagnoses Not on filedocumented in this encounter Care Teams Schedule Supervisor Relationship Specialty Start Date End Date Robles Charles DO [address] [facility] [place] [address] PCP - General Internal Medicine 07/30/23 Deisy Haji PA [address] [facility] [place] [address] PCP - Medical [place] [employer] 11/30/23 11/29/99 documented as of this encounter
--- OUTSIDE RECORDS SUMMARY | 2025-08-21 09:16 | XMS_ITS | Encounter Summary ---
Author Organization [facility] Address [address] [place] [address] Care Team Providers Care Inclined Railway Operator Name Role Phone Melvin Robles Jerome DO Primary Care Provider Deisy Haji Unavailable Encounter Details Date Type Department Care Team (Late Contact Info) Description 02/02/2025 Abstract HERBIE CARRASQUILLO [address] [place] [address] Ángel Buckner DO [address] [facility] [address] Arash [place], [facility] Social History Tobacco Use Types Packs/Day [...] Department Care Team (Late Contact Info) Description 09/19/2025 8:30 AM EDT Office Visit NOMSheree CARRASQUILLO [address] [facility] [place] [address] Ángel Buckner DO [address] [facility] [address] [place], [place] [address] documented as of this encounter Visit Diagnoses Not on filedocumented in this encounter Care Teams Inclined Railway Operator Relationship Specialty Start Date End Date Robles Charles DO [address] [facility] [place] [address] PCP - General Internal Medicine 07/30/23 Deisy Haji PA [address] [facility] [place] [address] PCP - Medical [place] Commercial 11/30/23 11/29/99 documented as of this encounter
--- OUTSIDE RECORDS SUMMARY | 2025-08-21 09:16 | XMS_ITS | Encounter Summary ---
Author Organization [facility] Address [address] [place] [address] Care Team Providers Care Trucking Supervisor Name Role Phone MelvinRobles Primary Care Provider [phone] Deisy Haji Unavailable Encounter Details Date Type Department Care Team (Late st Contact Info) Description 08/07/2025 Clinisync Result Encounter NOMS External Department Unsolicited Ángel Buckner DO [address] [place], [place] [phone] Social History Tobacco Use Types Packs/Day Years [...] EDT Office Visit NOMSheree Kaur OBGYManuel 102 [place] [address] Ángel Buckner, DO [address] [place] [address] [place] [address] documented as of this encounter Procedures Procedure Name Priority Date/Time Associated Diagnosis Comments [facility] URINE MICROSCOPIC ONLY Routine 08/07/2025 9:10 PM EDT [facility] UA (CLEAN/CATCH) PLASTICS PATTERNMAKER/MICRO IF IND. Routine 08/07/2025 9:10 PM EDT [...] Narrative CLINISYNC - 08/07/2025 9:42 PM EDT us Ángel Lopezo DO CLINISYNC Final Result [facility] * (ABNORMAL) ALL CBC WITH AUTO DIFF (08/07/2025 9:10 PM EDT) TB WBC 12.5(H) 4.0 - 11.0 10 3/uL TBH TB RBC 3.79(L) 4.20 - 5.40 10 6/uL [...] CLINISYNC - 08/07/2025 9:25 PM EDT us Ángle Sita DO CLINISYNC Final Result [facility] * (ABNORMAL) TBH UA (CLEAN/CATCH) PLASTICS PATTERNMAKER/MICRO IF IND. (08/07/2025 9:10 PM EDT) COLOR [...] CLINISYNC - 08/07/2025 9:46 PM EDT us Ángel Sita DO CLINISYNC Final Result [facility] documented in this encounter Visit Diagnoses Not on filedocumented in this encounter Care Teams Trucking Supervisor Relationship Specialty Start Date End Date Robles Charles DO [address] [facility] [place] [address] PCP - General Internal Medicine 07/30/23 Deisy Haji PA [address] [place] [address] [place] [address] PCP - Medical [place] Commercial 11/30/23 11/29/99 documented as of this encounter
--- OUTSIDE RECORDS SUMMARY | 2025-08-21 09:16 | XMS_ITS | Encounter Summary ---
Author Organization [facility] Address [address] [place] [address] Care Team Providers Care Critical Care Nurse Practitioner Name Role Phone MelvinRobles Primary Care Provider [phone] Deisy Haji Unavailable Encounter Details Date Type Department Care Team (Late Contact Info) Description 03/09/2025 Orders Only HERBIE CARRASQUILLO [address] [place] [address] Camille Lawrence LPN [address] [place] [id number] Social History Tobacco Use Types Packs/Day Years [...] AM EDT Office Visit NOMSheree CARRASQUILLO [address] [place] [address] Ángel Buckner DO [address] [facility] [place] [address] documented as of this encounter Procedures [...] on filedocumented in this encounter Care Teams Critical Care Nurse Practitioner Relationship Specialty Start Date End Date Robles Charles DO [address] [facility] [place] [id number] PCP - General Internal Medicine 07/30/23 Deisy Haji PA [address] [place], [place] [id number] PCP - Medical [employer] 11/30/23 11/29/99 documented as of this encounter
--- OUTSIDE RECORDS SUMMARY | 2025-08-21 09:23 | XMS_ITS | CCD ---
Author Organization [facility] CliniSyal Care Team Providers Care Nuclear Radiation Engineer Name Role Phone Subha Dillon Unavailable Elsi Mayer Unavailable MD Liz Conteh Primary Care Provider [phone] DO Delano Francis Attending Provider SITA, DR LUJAN Consulting Unavailable SITA, DR LUJAN Admitting Unavailable REQUEST, DR RAIN LISTED Primary Care Unavaila jt BUCKNER, DR LUJAN Attending Unavailable NELA, DR SEARS Attending Unavailable NELA, DR SEARS Consulting Unavailable NELA, DR SERAS Admitting Unavailable REQUEST, DR RAIN LISTED Primary Care Unavaila Kiya Gonsalves Unavailable MD Derick Timmons Attending Provider SHANNON Schaffer Attending Provider [phone] Robles Charles Unavailable MD Liz Conteh Primary Care Provider DO Delano Francis Attending Provider QUANG Villar Attending Provider DO Robles Charles Primary Care Provider Robles Charles MD Primary Care Provider QUANG Villar Attending Provider [phone] DO Robles Charles Primary Care Provider Deisy Pratt Unavailable DO Robles Charles Primary Care Provider Tito - DO Delaon MEZA Attending Provider Tito Delano MEZA Admitting Unavailable Tito Delano MEZA Attending Unavailable Robles Charles Primary Care Unavailable Deisy Villar Admitting Unavailable Deisy Villar Attending Unavailable Robles Charles Primary Care Unavailable Robles Charles DO Primary Care Provider [phone] [facility] Delano CRESPO Attending Provider Robles Charles MD [...] (5 sources) Penicillin V Drug Allergy rash [facility] [employer] Other (1 source) Amoxicillin Drug Allergy 0 [facility] Repository (1 source) Penicillins Drug allergy (disorder) [facility] Repository (5 sources) Penicillin Drug Allergy rash [employer] Other (1 source) Substance with penicillin structure and antibacterial mechanism of action (substance) Drug allergy 3 PENICILLINS [facility] [employer] Other (20 sources) Amoxicillin Drug Allergy 3 [facility] (20 sources) Penicillin G Drug Allergy 3 Unknown [facility] (1 source) Penicillins Drug allergy (disorder) 4 [facility] Repository Medications Current Medications Medication Drug [...] nasal QHS for 30 days Dec, Active End: 01-05-2025 take 1 spray(s) nasal route once daily fluticasone (Flonase) 50 MCG/ACT nasal spray Administer 1 spray into each nostril Daily Shake gently. Before first use, prime pump. After use, clean tip and replace cap. 01/05/2025 Discontinued (Other) fluticasone (Vinnie nase Allergy Relief) 50 MCG/ACT [...] in the morning. Take before meals. 02/22/2024 03/02/2025 Discontinued (Reorder) End: 01-06-2024 Omeprazole Magnesium (PriLOS EC) 2.5 MG pack PriLOSEC 0 01/06/2024 Discontinued ondansetron 4 mg disintegrating oral tablet (11 sources) Serotonin-3 Receptor Antagonist Start: 02-21-2025 End: [...] or vomiting 30 tablet 2 12/22/2024 02/02/2025 Pre-Mack (10 sources) Pre-Mack Not-Ta flakita Pre- Active MV-Min-Fe Fum-FA-DH A ( 1 PO) (20 sources) MV-Min- Fe Fum-FA-DHA ( 1 PO) Take 1 tablet by mouth Daily Active Vit-Fe Fumarate-FA ( Vitamin) 27-0.8 MG tablet (1 source) Vit-Fe Fumarate-FA ( Vitamin) 27-0.8 MG tablet Vitamin 0 Active Progesterone 200 MG supposit ory (7 sources) Start: 01-06-2025 End: 02-05-2025 Progesterone 200 MG supposit ory Indications: History of miscarriage Insert 200 mg into the vagina at bedtime Insert suppository vaginally every night at bedtime until 12 weeks gestation 30 suppository 3 01/06/2025 02/05/2025 Active Start: 12-09-2024 End: 01-06-2025 Progesterone 200 MG supposit ory Indications: History of miscarriage Insert 200 mg into the vagina at bedtime Insert suppository vaginally every night at bedtime until 12 weeks gestation 30 suppository 12/09/2024 01/06/2025 Discontinued (Reorder) Start: 12-09-2024 End: 01-08-2025 Progesterone 200 MG [...] pack Discontinued 0 PO per package directions May 02, 2024 11:00pm October 18, 2024 [...] Other fatigue; Translations: [Fatigue] Onset: 2 Episodic Menstrual disorders (1 source) Missed period; Translations: [Irregular menstruation, unspecified] 01-05-2025 Chronic Other complications of (2 sources) size does [...] AUTO DIFFon BASOPHILS ABSOLUTE AUTO 0 N [facility] Basophils/100 WBC (Bld) 0.2 % 0.2 - 2.0 % [facility] Eosinophils/100 WBC (Bld) 0.4 % Low 0.9 - 7.0 % [facility] Erythrocyte distribution width (RBC) [Ratio] 13.6 % 11.0 - 15.0 % [facility] Hematocrit (Bld) [Volume fraction] 32.6 % Low 36.0 - 48.0 % [facility] Hemoglobin (Bld) [Mass/Vol] 11.2 g/dL Low 12.0 - 16.0 g/dL [facility] IMMATURE GRANULOCYTES ABS AUTO 0.11 High [facility] Immature granulocytes/100 WBC (Bld) 0.8 % High 0.0 - 0.5 % [facility] Interpretation and review of laboratory results Abnormal [facility] LYMPHOCYTES ABSOLUTE AUTO 1.5 [facility] Lymphocytes/100 WBC (Bld) 10.6 % Low 20.5 - 60.0 % [facility] MCH (RBC) [Entitic mass] 32.6 pg 26.7 - 34.0 pg [facility] MCHC (RBC) [Mass/Vol] 34.4 g/dL 29.9 - 35.2 g/dL [facility] MCV (RBC) [Entitic vol] 94.8 fL 81.0 - 99.0 fL [facility] MONOCYTES ABSOLUTE AUTO 1.2 High N [facility] Monocytes/100 WBC (Bld) 8.1 % 1.7 - 12.0 % [facility] NEUTROPHILS ABSOLUTE AUTO 11.6 High [facility] Neutrophils/100 WBC (Bld) 79.9 % High 43.0 - 75.0 % [facility] Platelet mean volume (Bld) [Entitic vol] 9.6 fL 9.5 - 13.5 fL [facility] TB EO # 0.1 [facility] TB PLT 312 [facility] TB RBC 3.44 Low [facility] TB WBC 14.5 High [facility] UA (CLEAN/CATCH) AIR BRUSH ARTIST/KAYCEE RO IF IND.on 08-07-2025 BILIRUBIN URINE Negative NEGATIVE [facility] BLOOD URINE MODERATE Abnormal NEGATIVE [facility] Clarity (U) CLEAR CLEAR [facility] Color (U) LT. YELLOW YELLOW [facility] GLUCOSE URINE UA Negative NEGATIVE mg/dL [facility] Interpretation and review of laboratory results Abnormal [facility] Ketones Ql (U) 15 mg/dL Abnormal NEGATIVE [facility] Leukocyte esterase Test strip Ql (U) SMALL Abnormal NEGATIVE [facility] NITRITE URINE Negative NEGATIVE [facility] pH (U) 6.5 [pH] 5.0 - 9.0 [facility] PROTEIN URINE Negative NEG/TRACE mg/dL [facility] SPECIFIC GRAVITY URINE <=1.005 Abnormal 1.005 - 1.025 [facility] URINE MICROSCOPIC INDICATED YES [facility] UROBILINOGEN URINE 0.2 EU/dL 0.2 - 1.0 EU/dL [facility] Urinalysis macro (dipstick) panel (U)on 08-07-2025 Bilirubin, UA Negative Negative - 4(70) +++ mg/dL [facility] Blood, UA Positive Negative - 50 Ezequiel/mcL [facility] Clarity, UA Clear [facility] Color, UA Yellow [facility] Glucose, UA Negative Negative - 1999(110) ++++ mg/dL [facility] Interpretation and review of laboratory results Abnormal [facility] Ketones, UA Negative Negative - 160(16) ++++ mg/dL [facility] Leukocytes, UA Negative Negative - 500+++ Jason/mcL [facility] Nitrite, UA Negative Negative - Positive [facility] pH, UA 6 5 - 9 [facility] Protein, UA Negative Negative - 2000(20) ++++ mg/dL [facility] Spec Grav, UA 1.025 1 - 1.03 [facility] Urobilinogen, UA 1.0 0.2 - 12 mg/dL [facility] US OB BPP W NON-STRESS on 08-05-2025 [place] [address] Ultrasound Report Signed Patient: ANGELA REYES MR#: [id number] : 1990 Acct:[id number] Age/Sex: 35 / F ADM Date: 08/05/25 Loc: [facility] 250-[address]: Ángel Buckner D.O. Ordering Physician: Ángel Buckner D.O. Date of Service: 08/05/25 Procedure(s): US OB BPP w non-stress Accession Number(s): [id number] cc: Robles Charles D.O.; Ángel Buckner D.O. The [address] [address] Patient Name: ANGELA REYES MRN: [facility]:[id number] date: 1990 Sex: F Assigned Patient Location: [facility] Current Patient Location: [facility] Accession/Order Number: [id number] Exam Date: 08/05/2025 08:35 Report Date: 08/05/2025 09:03 At the request of: ÁNGEL BUCKNER DO Procedure: US OB BPP w non-stress Biophysical profile. Reason for exam: History of miscarriage. COMPARISON: 07/29/2025 TECHNIQUE: Transabdominal imaging of the gravid uterus was obtained. FINDINGS: The income tax analyst reports a BPP of 8 out of 8. MARTY is normal at 12.6 cm. heart rate 132 bpm. US/US OB BPP w non-stress IMPRESSION: BPP 8 out of 8. Impression dictated by: Justin Mack Jr., D.O. 08/05/2025 9:03 AM Dictation Location: [place] [address] Electronically authenticated by: [id number] Y Date: 08/05/2025 09:03 Dictated By: Justin Mack M.D. Signed By: 08/05/25904 DD/ 2 TD/TT: Repair Weaver: [facility] Radiology, Radiologbrittanie pa MD - 08/05/2025 The [place] [id number] Ultrasound Report Signed Patient: ANGELA REYES MR#: [id number] : 1990 Acct:[id number] Age/Sex: 35 / F ADM Date: 08/05/25 Loc: [facility] 250-[address]: Ángel Buckner D.O. Ordering Physician: Ángel Buckner D.O. Date of Service: 08/05/25 Procedure(s): US OB BPP w non-stress Accession Number(s): [id number] cc: Robles Charles D.O.; Ángel Buckner D.O. [place] [address] Patient Name: ANGELA REYES MRN: [facility]:[id number] date: 1990 Sex: F Assigned Patient Location: [facility] Current Patient Location: [facility] Accession/Order Number: [id number] Exam Date: 08/05/2025 08:35 Report Date: 08/05/2025 09:03 At the request of: ÁNGEL BUCKNER DO Procedure: US OB BPP w non-stress Biophysical profile. Reason for exam: History of miscarriage. COMPARISON: 07/29/2025 TECHNIQUE: Transabdominal imaging of the gravid uterus was obtained. FINDINGS: The income tax analyst reports a BPP of 8 out of 8. MARTY is normal at 12.6 cm. heart rate 132 bpm. US/US OB BPP w non-stress IMPRESSION: BPP 8 out of 8. Impression dictated by: Justin Mack Jr., D.O. 08/05/2025 9:03 AM Dictation Location: [facility] Electronically authenticated by: [id number] Y Date: 08/05/2025 09:03 Dictated By: Justin Mack M.D. Signed By: 08/05/25904 DD/ 2 TD/TT: Repair Weaver: [facility] Radiology Study observation (narrative) [facility] US OB BPP W NON-STRESS Ordered By: Radiologist Radiology on 08-05-2025 [facility] Work Phone: Urinalysis macro (dipstick) panel (U)on 08-03-2025 Bilirubin, UA Negative Negative - 4(70) +++ mg/dL [facility] Blood, UA Negative Negative - 50 Ezequiel/mcL [facility] Clarity, UA Clear [facility] Color, UA Yellow [facility] Glucose, UA Negative Negative - 2000(110) ++++ mg/dL [facility] Interpretation and review of laboratory results Abnormal [facility] Ketones, UA Negative Negative - 160(16) ++++ mg/dL [facility] Leukocytes, UA Positive Negative - 500+++ Jason/mcL [facility] Nitrite, UA Negative Negative - Positive [facility] pH, UA 6 5 - 9 [facility] Protein, UA Negative Negative - 2000(20) ++++ mg/dL [facility] Spec Grav, UA 1.015 1 - 1.03 [facility] Urobilinogen, UA 1.0 0.2 - 12 mg/dL [facility] US OB BPP W NON-STRESS on 07-29-2025 [place] [address] Ultrasound Report Signed Patient: ANGELA REYES MR#: [id number] : 1990 Acct:[id number] Age/Sex: 35 / F ADM Date: 07/29/25 Loc: US Attending Dr: Ángel Buckner D.O. Ordering Physician: Ángel Buckner D.O. Date of Service: 07/29/25 Procedure(s): US OB BPP w non-stress Accession Number(s): [id number] cc: Robles Charles D.O.; Ángel Buckner D.O. [place] [address] Patient Name: ANGELA REYES MRN: [facility]:[id number] date: 1990 Sex: F Assigned Patient Location: [facility] Current Patient Location: Accession/Order Number: [id number] Exam Date: 07/29/2025 08:02 Report Date: 07/29/2025 [...] Yusuf M.D. 07/29/2025 11:10 AM Dictation Location: [place] [address] Electronically authenticated by: [id number] Y Date: 07/29/2025 11:10 Dictated By: Roddy Yusuf M.D. Signed By: 07/29/25 1112 DD/ 1110 TD/TT: Repair Weaver: [facility] Radiology, Radiologi MD ember - 07/29/2025 [place] [address] Ultrasound Report Signed Patient: ANGELA REYES MR#: [id number] : 1990 Acct:[id number] Age/Sex: 35 / F ADM Date: 07/29/25 Loc: US Attending Dr: Ángel Buckner D.O. Ordering Physician: Ángel Buckner D.O. Date of Service: 07/29/25 Procedure(s): US OB BPP w non-stress Accession Number(s): [id number] cc: Robles Charles D.O.; Ángel Buckner D.O. The [place] [address] Patient Name: ANGELA REYES MRN: [facility]:[id number] date: 1990 Sex: F Assigned Patient Location: [facility] Current Patient Location: Accession/Order Number: [id number] Exam Date: 07/29/2025 08:02 Report Date: 07/29/2025 [...] Yusuf M.D. 07/29/2025 11:10 AM Dictation Location: [facility] Electronically authenticated by: [id number] Y Date: 07/29/2025 11:10 Dictated By: Roddy Yusuf M.D. Signed By: 07/29/25 1112 DD/ 1110 TD/TT: Repair Weaver: [facility] Radiology Study observation (narrative) [facility] OB BPP W NON-STRESS Ordered By: Radiologist Radiology on 07-29-2025 [facility] Work Phone: Urinalysis macro (dipstick) panel (U)on 07-24-2025 Bilirubin, UA Negative Negative - 4(70) +++ mg/dL [facility] Blood, UA Negative Negative - 50 Ezequiel/mcL [facility] Clarity, UA Clear [facility] Color, UA Christine [facility] Glucose, UA Negative Negative - 2000(110) ++++ mg/dL [facility] Interpretation and review of laboratory results Abnormal [facility] Ketones, UA Negative Negative - 160(16) ++++ mg/dL [facility] Leukocytes, UA Positive Negative - 500+++ Jason/mcL [facility] Comment on above: 1+ Nitrite, UA Negative Negative - Positive [facility] pH, UA 6 5 - 9 [facility] Protein, UA Positive Negative - 2000(20) ++++ mg/dL [facility] Comment on above: 0.15 g/L Spec Grav, UA 1.015 1 - 1.03 [facility] Urobilinogen, UA 0.2 0.2 - 12 mg/dL [facility] US OB BPP W NON-STRESS on 07-22-2025 [place] [address] Ultrasound Report Signed Patient: ANGELA REYES MR#: [id number] : 1990 Acct:[id number] Age/Sex: 35 / F ADM Date: 07/22/25 Loc: US Attending Dr: Ángel Buckner D.O. Ordering Physician: Ángel Buckner D.O. Date of Service: 07/22/25 Procedure(s): US OB BPP w non-stress Accession Number(s): [id number] cc: Robles Charles D.O.; Ángel Buckner D.O. [address] [address] Patient Name: ANGELA REYES MRN: [facility]:[id number] date: 1990 Sex: F Assigned Patient Location: US Current Patient Location: Accession/Order Number: [id number] Exam Date: 07/22/2025 07:58 Report Date: 07/22/2025 [...] Yusuf M.D. 07/22/2025 5:02 PM Dictation Location: [place] [address] Electronically authenticated by: [id number] Y Date: 07/22/2025 17:02 Dictated By: Roddy Yusuf M.D. Signed By: 07/22/252015 DD/ 01 TD/TT: Repair Weaver: [facility] Radiology, Radiologi MD ember - 07/22/2025 [place] [address] Ultrasound Report Signed Patient: ANGELA REYES MR#: [id number] : 1990 Acct:[id number] Age/Sex: 35 / F ADM Date: 07/22/25 Loc: US Attending Dr: Ángel Buckner D.O. Ordering Physician: Ángel Buckner D.O. Date of Service: 07/22/25 Procedure(s): US OB BPP w non-stress Accession Number(s): [id number] cc: Robles Charles D.O.; Ángel Buckner D.O. [place] [address] Patient Name: ANGELA REYES MRN: [id number] date: 1990 Sex: F Assigned Patient Location: US Current Patient Location: Accession/Order Number: [id number] Exam Date: 07/22/2025 07:58 Report Date: 07/22/2025 [...] Yusuf M.D. 07/22/2025 5:02 PM Dictation Location: [place] [address] Electronically authenticated by: [id number] Y Date: 07/22/2025 17:02 Dictated By: Roddy Yusuf M.D. Signed By: 07/22/252015 DD/ 01 TD/TT: Repair Weaver: [facility] Radiology Study observation (narrative) [facility] US OB BPP W NON-STRESS Ordered By: Radiologist Radiology on 07-22-2025 [facility] Work Phone: Urinalysis macro (dipstick) panel (U)on 07-17-2025 Bilirubin, UA Negative Negative - 4(70) +++ mg/dL [facility] Blood, UA Negative Negative - 50 Ezequiel/mcL [facility] Clarity, UA Clear [facility] Color, UA Yellow [facility] Glucose, UA Negative Negative - 2000(110) ++++ mg/dL [facility] Interpretation and review of laboratory results Abnormal [facility] Ketones, UA Negative Negative - 160(16) ++++ mg/dL [facility] Leukocytes, UA Positive Negative - 500+++ Jason/mcL [facility] Comment on above: 2+ Nitrite, UA Negative Negative - Positive [facility] pH, UA 6 5 - 9 [facility] Protein, UA Negative Negative - 2000(20) ++++ mg/dL [facility] Spec Grav, UA 1.015 1 - 1.03 [facility] Urobilinogen, UA 1.0 0.2 - 12 mg/dL [facility] US OB BPP W NON-STRESS on 07-15-2025 [place] [address] Ultrasound Report Signed Patient: ANGELA REYES MR#: [id number] : 1990 Acct:[id number] Age/Sex: 35 / F ADM Date: 07/15/25 Loc: US Attending Dr: Ángel Buckner D.O. Ordering Physician: Ángel Buckner D.O. Date of Service: 07/15/25 Procedure(s): US OB BPP w non-stress Accession Number(s): [id number] cc: Robles Charles D.O.; Ángel Buckner D.O. [address] [address] Patient Name: ANGELA REYES MRN: [facility]:[id number] date: 1990 Sex: F Assigned Patient Location: [facility] Current Patient Location: Accession/Order Number: [id number] Exam Date: 07/15/2025 09:17 Report Date: 07/15/2025 09:18 At the request of: ÁNGEL BUCKNER DO Procedure: US OB BPP w non-stress Biophysical profile. Reason for exam: Advanced maternal age COMPARISON: 07/08/2025 TECHNIQUE: Transabdominal imaging of the gravid uterus was obtained. FINDINGS: The income tax analyst reports a BPP of 8 out of 8. MARTY is normal at 14 cm. heart rate 136 bpm. US/US OB BPP w non-stress IMPRESSION: BPP 8 out of 8. Impression dictated by: Justin Mack Jr., D.O. 07/15/2025 9:18 AM Dictation Location: [place] [address] Electronically authenticated by: [id number] Y Date: 07/15/2025 09:18 Dictated By: Justin Mack M.D. Signed By: 07/15/25919 DD/ 7 TD/TT: Repair Weaver: [facility] Radiology Radiologbrittanie pa MD - 07/15/2025 [place] [address] Ultrasound Report Signed Patient: ANGELA REYES MR#: [id number] : 1990 Acct:[id number] Age/Sex: 35 / F ADM Date: 07/15/25 Loc: US Attending Dr: Ángel Buckner D.O. Ordering Physician: Ángel Buckner D.O. Date of Service: 07/15/25 Procedure(s): US OB BPP w non-stress Accession Number(s): [id number] cc: Robles Charles D.O.; Ángel Buckner D.O. The [address] [address] Patient Name: ANGELA REYES MRN: [facility]:[id number] date: 1990 Sex: F Assigned Patient Location: [facility] Current Patient Location: Accession/Order Number: [id number] Exam Date: 07/15/2025 09:17 Report Date: 07/15/2025 09:18 At the request of: ÁNGEL BUCKNER DO Procedure: US OB BPP w non-stress Biophysical profile. Reason for exam: Advanced maternal age COMPARISON: 07/08/2025 TECHNIQUE: Transabdominal imaging of the gravid uterus was obtained. FINDINGS: The income tax analyst reports a BPP of 8 out of 8. MARTY is normal at 14 cm. heart rate 136 bpm. US/US OB BPP w non-stress IMPRESSION: BPP 8 out of 8. Impression dictated by: Justin Mack Jr., D.O. 07/15/2025 9:18 AM Dictation Location: [place] [address] Electronically authenticated by: [id number] Y Date: 07/15/2025 09:18 Dictated By: Justin Mack M.D. Signed By: 07/15/25919 DD/ 7 TD/TT: Repair Weaver: [facility] Radiology Study observation (narrative) [facility] US OB BPP W NON-STRESS Ordered By: Radiologist Radiology on 07-15-2025 [facility] Work Phone: Urinalysis macro (dipstick) panel (U)on 07-10-2025 Bilirubin, UA Negative Negative - 4(70) +++ mg/dL [facility] Blood, UA Negative Negative - 50 Ezequiel/mcL [facility] Clarity, UA Clear [facility] Color, UA Yellow [facility] Glucose, UA Negative Negative - 1999(110) ++++ mg/dL [facility] Interpretation and review of laboratory results Abnormal [facility] Ketones, UA Negative Negative - 160(16) ++++ mg/dL [facility] Leukocytes, UA Positive Negative - 500+++ Jason/mcL [facility] Comment on above: small Nitrite, UA Negative Negative - Positive [facility] pH, UA 6 5 - 9 [facility] Protein, UA Negative Negative - 2000(20) ++++ mg/dL [facility] Spec Grav, UA 1.015 1 - 1.03 [facility] Urobilinogen, UA 0.2 0.2 - 12 mg/dL [facility] US OB BPP W NON-STRESS on 07-08-[address] [address] Ultrasound Report Signed Patient: ANGELA REYES MR#: [id number] : 1990 Acct:[id number] Age/Sex: 35 / F ADM Date: 07/08/25 Loc: US Attending Dr: Ángel Buckner D.O. Ordering Physician: Ángel Buckner D.O. Date of Service: 07/08/25 Procedure(s): US OB BPP w non-stress Accession Number(s): [id number] cc: Robles Charles D.O.; Ángel Buckner D.O. The [place] [address] Patient Name: ANGELA REYES MRN: [facility]:[id number] date: 1990 Sex: F Assigned Patient Location: [facility] Current Patient Location: Accession/Order Number: [id number] Exam Date: 07/08/2025 09:19 Report Date: 07/08/2025 09:19 At the request of: ÁGNEL BUCKNER DO Procedure: US OB BPP w non-stress Biophysical profile. Reason for exam: History of miscarriage COMPARISON: 07/01/2025 TECHNIQUE: Transabdominal imaging of the gravid uterus was obtained. FINDINGS: The income tax analyst reports a BPP of 8 out of 8. MARTY is normal at 12.5 cm. heart rate 135 bpm. US/US OB BPP w non-stress IMPRESSION: BPP 8 out of 8. Impression dictated by: Justin Mack Jr., D.O. 07/08/2025 9:19 AM Dictation Location: [place] [address] Electronically authenticated by: [id number] Y Date: 07/08/2025 09:19 Dictated By: Justin Mack M.D. Signed By: 07/08/25921 DD/ 8 TD/TT: Repair Weaver: [facility] Radiology, Radiologi MD ember - 07/08/2025 The [place] [id number] Ultrasound Report Signed Patient: ANGELA REYES MR#: [id number] : 1990 Acct:[id number] Age/Sex: 35 / F ADM Date: 07/08/25 Loc: US Attending Dr: Ángel Buckner D.O. Ordering Physician: Ángel Buckner D.O. Date of Service: 07/08/25 Procedure(s): US OB BPP w non-stress Accession Number(s): [id number] cc: Robles Charles D.O.; Ángel Buckner D.O. The [place] [address] Patient Name: ANGELA REYES MRN: [facility]:[id number] date: 1990 Sex: F Assigned Patient Location: [facility] Current Patient Location: Accession/Order Number: [id number] Exam Date: 07/08/2025 09:19 Report Date: 07/08/2025 09:19 At the request of: ÁNGEL BUCKNER DO Procedure: US OB BPP w non-stress Biophysical profile. Reason for exam: History of miscarriage COMPARISON: 07/01/2025 TECHNIQUE: Transabdominal imaging of the gravid uterus was obtained. FINDINGS: The income tax analyst reports a BPP of 8 out of 8. MARTY is normal at 12.5 cm. heart rate 135 bpm. US/US OB BPP w non-stress IMPRESSION: BPP 8 out of 8. Impression dictated by: Justin Mack Jr., D.O. 07/08/2025 9:19 AM Dictation Location: [place] [address] Electronically authenticated by: [id number] Y Date: 07/08/2025 09:19 Dictated By: Justin Mack M.D. Signed By: 07/08/25921 DD/ 8 TD/TT: Repair Weaver: [facility] Radiology Study observation (narrative) [facility] US OB BPP W NON-STRESS Ordered By: Radiologist Radiology on 07-08-2025 [facility] Work Phone: US OB BPP W NON-STRESS on 07-01-2025 [place] [address] Ultrasound Report Signed Patient: ANGELA REYES MR#: [id number] : 1990 Acct:[id number] Age/Sex: 35 / F ADM Date: 07/01/25 Loc: US Attending Dr: Ángel Buckner D.O. Ordering Physician: Ángel Buckner D.O. Date of Service: 07/01/25 Procedure(s): US OB BPP w non-stress Accession Number(s): [id number] cc: Robles Charles D.O.; Ángel Buckner D.O. [place] [id number] Patient Name: ANGELA REYES MRN: [id number] date: 1990 Sex: F Assigned Patient Location: [facility] Current Patient Location: Accession/Order Number: [id number] Exam Date: 07/01/2025 20:05 Report Date: 07/01/2025 [...] Yusuf M.D. 07/01/2025 8:07 PM Dictation Location: [place] [address] Electronically authenticated by: [id number] Y Date: 07/01/2025 20:07 Dictated By: Roddy Yusuf M.D. Signed By: 07/01/252008 DD/ 06 TD/TT: Repair Weaver: [facility] RadiologyNeelimaogbrittanie pa MD - 07/01/2025 [place] [address] Ultrasound Report Signed Patient: ANGELA REYES MR#: [id number] : 1990 Acct:[id number] Age/Sex: 35 / F ADM Date: 07/01/25 Loc: US Attending Dr: Ángel Buckner D.O. Ordering Physician: Ángel Buckner D.O. Date of Service: 07/01/25 Procedure(s): US OB BPP w non-stress Accession Number(s): [id number] cc: Robles Charles D.O.; Ángel Buckner D.O. The [place] [address] Patient Name: ANGELA REYES MRN: [facility]:[id number] date: 1990 Sex: F Assigned Patient Location: [facility] Current Patient Location: Accession/Order Number: [id number] Exam Date: 07/01/2025 20:05 Report Date: 07/01/2025 [...] Yusuf M.D. 07/01/2025 8:07 PM Dictation Location: [place] [address] Electronically authenticated by: [id number] Y Date: 07/01/2025 20:07 Dictated By: Roddy Yusuf M.D. Signed By: 07/01/252008 DD/ 06 TD/TT: Repair Weaver: [facility] Radiology Study observation (narrative) [facility] US OB BPP W NON-STRESS Ordered By: Radiologist Radiology on 07-01-2025 [facility] Work Phone: US OB FOLLOW [...] II, MD, PHD at 26-Jun-2025 11:42:39 PM [facility] Normal Not Available Comment on above: Order Comment: US OB SCAN FOR GROWTH Estimated Date of Delivery: 08/09/25 Gestational Age as of 06/12/2025: 31w5d Urinalysis macro (dipstick) panel (U)on 06-26-2025 Bilirubin, UA Negative Negative - 4(70) +++ mg/dL [facility] Blood, UA Negative Negative - 50 Ezequiel/mcL [facility] Clarity, UA Clear [facility] Color, UA Yellow [facility] Glucose, UA Negative Negative - 1999(110) ++++ mg/dL [facility] Interpretation and review of laboratory results Normal [facility] Ketones, UA Negative Negative - 160(16) ++++ mg/dL [facility] Leukocytes, UA Negative Negative - 500+++ Jason/mcL [facility] Nitrite, UA Negative Negative - Positive [facility] pH, UA 6.5 5 - 9 [facility] Protein, UA Negative Negative - 1999(20) ++++ mg/dL [facility] Spec Grav, UA 1.01 1 - 1.03 [facility] Urobilinogen, UA 1.0 0.2 - 12 mg/dL [facility] US OB BPP W NON-STRESS on 06-24-2025 [place] [address] Ultrasound Report Signed Patient: ANGELA REYES MR#: [id number] : 1990 Acct:[id number] Age/Sex: 35 / F ADM Date: 06/24/25 Loc: US Attending Dr: Ángel Buckner D.O. Ordering Physician: Ángel Buckner D.O. Date of Service: 06/24/25 Procedure(s): US OB BPP w non-stress Accession Number(s): [id number] cc: Robles Charles D.O.; Ángel Buckner D.O. [place] [id number] Patient Name: ANGELA REYES MRN: [facility]:[id number] date: 1990 Sex: F Assigned Patient Location: US Current Patient Location: Accession/Order Number: [id number] Exam Date: 06/24/2025 09:33 Report Date: 06/24/2025 09:34 At the request of: ÁNGEL BUCKNER DO Procedure: US OB BPP w non-stress Biophysical profile. Reason for exam: History of miscarriage COMPARISON: 06/17/2025 TECHNIQUE: Transabdominal imaging of the gravid uterus was obtained. FINDINGS: The income tax analyst reports a BPP of 8 out of 8. MARTY is normal at 15 cm. heart rate 130 bpm. US/US OB BPP w non-stress IMPRESSION: BPP 8 out of 8. Impression dictated by: Justin Mack Jr., D.O. 06/24/2025 9:34 AM Dictation Location: [facility] Electronically authenticated by: [id number] Y Date: 06/24/2025 09:34 Dictated By: Justin Mack M.D. Signed By: 06/24/2536 DD/ 3 TD/TT: Repair Weaver: [facility] RadiologyNeelimaogbrittanie pa MD - 06/24/2025 [place] [address] Ultrasound Report Signed Patient: ANGELA REYES MR#: [id number] : 1990 Acct:[id number] Age/Sex: 35 / F ADM Date: 06/24/25 Loc: US Attending Dr: Ángel Buckner D.O. Ordering Physician: Ángel Buckner D.O. Date of Service: 06/24/25 Procedure(s): US OB BPP w non-stress Accession Number(s): [id number] cc: Robles Charles D.O.; Ángel Buckner D.O. The [place] [address] Patient Name: ANGELA REYES MRN: [facility]:[id number] date: 1990 Sex: F Assigned Patient Location: US Current Patient Location: Accession/Order Number: [id number] Exam Date: 06/24/2025 09:33 Report Date: 06/24/2025 09:34 At the request of: ÁNGEL BUCKNER DO Procedure: US OB BPP w non-stress Biophysical profile. Reason for exam: History of miscarriage COMPARISON: 06/17/2025 TECHNIQUE: Transabdominal imaging of the gravid uterus was obtained. FINDINGS: The income tax analyst reports a BPP of 8 out of 8. MARTY is normal at 15 cm. heart rate 130 bpm. US/US OB BPP w non-stress IMPRESSION: BPP 8 out of 8. Impression dictated by: Justin Mack Jr., D.O. 06/24/2025 9:34 AM Dictation Location: [place] [address] Electronically authenticated by: [id number] Y Date: 06/24/2025 09:34 Dictated By: Justin Mack M.D. Signed By: 06/24/2536 DD/ 3 TD/TT: Repair Weaver: [facility] Radiology Study observation (narrative) [facility] US OB BPP W NON-STRESS Ordered By: Radiologist Radiology on 06-24-2025 [facility] Work Phone: US OB BPP W NON-STRESS on 06-17-2025 [place] [address] Ultrasound Report Signed Patient: ANGELA REYES MR#: [id number] : 1990 Acct:[id number] Age/Sex: 35 / F ADM Date: 06/17/25 Loc: [place] [address]: Ángel Buckner D.O. Ordering Physician: Ángel Buckner D.O. Date of Service: 06/17/25 Procedure(s): US OB BPP w non-stress Accession Number(s): [id number] cc: Robles Charles D.O.; Ángel Buckner D.O. The [place] [address] Patient Name: ANGELA REYES MRN: [facility]:[id number] date: 1990 Sex: F Assigned Patient Location: [facility] Current Patient Location: [facility] Accession/Order Number: [id number] Exam Date: 06/17/2025 09:17 Report Date: 06/17/2025 [...] Ramachandran M.D. 06/17/2025 9:20 AM Dictation Location: [place] [address] Electronically authenticated by: [id number] Y Date: 06/17/2025 09:20 Dictated By: Carlton Ramachandran M.D. Signed By: 06/17/25921 DD/ 9 TD/TT: Repair Weaver: [facility] Radiology Radiologbrittanie pa MD - 06/17/2025 [place] [address] Ultrasound Report Signed Patient: ANGELA REYES MR#: [id number] : 1990 Acct:[id number] Age/Sex: 35 / F ADM Date: 06/17/25 Loc: [facility] 250-[address]: Ángel Buckner D.O. Ordering Physician: Ángel Buckner D.O. Date of Service: 06/17/25 Procedure(s): US OB BPP w non-stress Accession Number(s): [id number] cc: Robles Charles D.O.; Ángel Buckner D.O. The [address] [address] Patient Name: ANGELA REYES MRN: [facility]:[id number] date: 1990 Sex: F Assigned Patient Location: [facility] Current Patient Location: [facility] Accession/Order Number: [id number] Exam Date: 06/17/2025 09:17 Report Date: 06/17/2025 [...] Ramachandran M.D. 06/17/2025 9:20 AM Dictation Location: [place] [address] Electronically authenticated by: [id number] Y Date: 06/17/2025 09:20 Dictated By: Carlton Ramachandran M.D. Signed By: 06/17/25921 DD/ 9 TD/TT: Repair Weaver: [facility] Radiology Study observation (narrative) [facility] US OB BPP W NON-STRESS Ordered By: Radiologist Radiology on 06-17-2025 [facility] Work Phone: US OB BPP W NON-STRESS on 06-10-2025 [place] [address] Ultrasound Report Signed Patient: ANGELA REYES MR#: [id number] : 1990 Acct:[id number] Age/Sex: 35 / F ADM Date: 06/10/25 Loc: US Attending Dr: Ángel Buckner D.O. Ordering Physician: Ángel Buckner D.O. Date of Service: 06/10/25 Procedure(s): US OB BPP w non-stress Accession Number(s): [id number] cc: Robles Charles D.O.; Ángel Buckner D.O. [place] [address] Patient Name: ANGELA REYES MRN: [facility]:[id number] date: 1990 Sex: F Assigned Patient Location: [facility] Current Patient Location: Accession/Order Number: [id number] Exam Date: 06/10/2025 18:36 Report Date: 06/10/2025 [...] Yusuf M.D. 06/10/2025 6:38 PM Dictation Location: [place] [address] Electronically authenticated by: [id number] Y Date: 06/10/2025 18:38 Dictated By: Roddy Yusuf M.D. Signed By: 06/10/251840 DD/ 37 TD/TT: Repair Weaver: [facility] Radiology, Radiologi MD ember - 06/10/2025 [place] [address] Ultrasound Report Signed Patient: ANGELA REYES MR#: [id number] : 1990 Acct:[id number] Age/Sex: 35 / F ADM Date: 06/10/25 Loc: US Attending Dr: Ángel Buckner D.O. Ordering Physician: Ángel Buckner D.O. Date of Service: 06/10/25 Procedure(s): US OB BPP w non-stress Accession Number(s): [id number] cc: Robles Charles D.O.; Ángel Buckner D.O. The [place] [address] Patient Name: ANGELA REYES MRN: [facility]:[id number] date: 1990 Sex: F Assigned Patient Location: [facility] Current Patient Location: Accession/Order Number: [id number] Exam Date: 06/10/2025 18:36 Report Date: 06/10/2025 [...] Yusuf M.D. 06/10/2025 6:38 PM Dictation Location: [place] [address] Electronically authenticated by: [id number] Y Date: 06/10/2025 18:38 Dictated By: Roddy Yusuf M.D. Signed By: 06/10/25 184 DD/ 37 TD/TT: Repair Weaver: [facility] Radiology Study observation (narrative) [facility] US OB BPP W NON-STRESS Ordered By: Radiologist Radiology on 06-10-2025 [facility] Work Phone: US OB BPP W NON-STRESS on 06-03-2025 [place] [address] Ultrasound Report Signed Patient: ANGELA REYES MR#: [id number] : 1990 Acct:[id number] Age/Sex: 35 / F ADM Date: 06/03/25 Loc: US Attending Dr: Ángel Buckner D.O. Ordering Physician: Ángel Buckner D.O. Date of Service: 06/03/25 Procedure(s): US OB BPP w non-stress Accession Number(s): [id number] cc: Robles Charles D.O.; Ángel Buckner D.O. [place] [address] Patient Name: ANGELA REYES MRN: [facility]:[id number] date: 1990 Sex: F Assigned Patient Location: [facility] Current Patient Location: Accession/Order Number: [id number] Exam Date: 06/03/2025 14:22 Report Date: 06/03/2025 [...] Durand M.D. 06/03/2025 2:23 PM Dictation Location: [place] [address] Electronically authenticated by: [id number] Y Date: 06/03/2025 14:23 Dictated By: Aguilar Durand D.O. Signed By: 06/03/25 1425 DD/ 142 TD/TT: Repair Weaver: [facility] Radiology, Radiologi MD ember - 06/03/2025 [place] [address] Ultrasound Report Signed Patient: ANGELA REYES MR#: [id number] : 1990 Acct:[id number] Age/Sex: 35 / F ADM Date: 06/03/25 Loc: US Attending Dr: Ángel Buckner D.O. Ordering Physician: Ángel Buckner D.O. Date of Service: 06/03/25 Procedure(s): US OB BPP w non-stress Accession Number(s): [id number] cc: Robles Charles D.O.; Ángel Buckner D.O. The [address] [address] Patient Name: ANGELA REYES MRN: [facility]:[id number] date: 1990 Sex: F Assigned Patient Location: [facility] Current Patient Location: Accession/Order Number: [id number] Exam Date: 06/03/2025 14:22 Report Date: 06/03/2025 [...] Durand M.D. 06/03/2025 2:23 PM Dictation Location: [employer] Electronically authenticated by: [id number] Y Date: 06/03/2025 14:23 Dictated By: Aguilar Durand D.O. Signed By: 06/03/255 DD/ 22 TD/TT: Repair Weaver: [facility] Radiology Study observation (narrative) [facility] US OB BPP W NON-STRESS Ordered By: Radiologist Radiology on 06-03-2025 [facility] Work Phone: Urinalysis macro (dipstick) panel (U)on 05-30-2025 Bilirubin, UA Negative Negative - 4(70) +++ mg/dL [facility] Blood, UA Negative Negative - 50 Ezequiel/mcL [facility] Clarity, UA Clear [facility] Color, UA Yellow [facility] Glucose, UA Negative Negative - 2000(110) ++++ mg/dL [facility] Interpretation and review of laboratory results Normal [facility] Ketones, UA Negative Negative - 160(16) ++++ mg/dL [facility] Leukocytes, UA Negative Negative - 500+++ Jason/mcL [facility] Nitrite, UA Negative Negative - Positive [facility] pH, UA 5.5 5 - 9 [facility] Protein, UA Negative Negative - 2000(20) ++++ mg/dL [facility] Spec Grav, UA 1.02 1 - 1.03 [facility] Urobilinogen, UA 1.0 0.2 - 12 mg/dL [facility] US OB GROWTHon 05-11-[address] [place] [address] Ultrasound Report Signed Patient: ANGELA REYES MR#: [id number] : 1990 Acct:[id number] Age/Sex: 35 / F ADM Date: 05/11/25 Loc: US Attending Dr: Edson Dewitt Ordering Physician: Edson Dewitt Date of Service: 05/11/25 Procedure(s): US OB growth Accession Number(s): [id number] cc: Robles Charles D.O.; Edson Dewitt [address] [address] Patient Name: ANGELA REYES MRN: [facility]:[id number] date: 1990 Sex: F Assigned Patient Location: US Current Patient Location: US Accession/Order Number: [id number] Exam Date: 05/11/2025 14:38 Report Date: 05/11/2025 [...] Jr., D.O. 05/11/2025 2:40 PM Dictation Location: [place] [address] Electronically authenticated by: [id number] Y Date: 05/11/2025 14:40 Dictated By: Justin Mack M.D. Signed By: 05/11/25 1442 DD/ 1440 TD/TT: Repair Weaver: [facility] Radiology, Radiologbrittanie pa MD - 05/11/[address] [address] Ultrasound Report Signed Patient: ANGELA REYES MR#: [id number] : 1990 Acct:[id number] Age/Sex: 35 / F ADM Date: 05/11/25 Loc: US Attending Dr: Edson Dewitt Ordering Physician: Edson Dewitt Date of Service: 05/11/25 Procedure(s): US OB growth Accession Number(s): [id number] cc: Robles Charles D.O.; Edson Dewitt [place] [id number] Patient Name: ANGELA REYES MRN: [id number] date: 1990 Sex: F Assigned Patient Location: US Current Patient Location: US Accession/Order Number: [id number] Exam Date: 05/11/2025 14:38 Report Date: 05/11/2025 [...] Jr., D.O. 05/11/2025 2:40 PM Dictation Location: [place] [address] Electronically authenticated by: [id number] Y Date: 05/11/2025 14:40 Dictated By: Justin Mack M.D. Signed By: 05/11/25 144 DD/ 1440 TD/TT: Repair Weaver: [facility] Radiology Study observation (narrative) [facility] OB GROWTHOrdered By: Reg ologist Radiology on 05-11-2025 [facility] Work Phone: ALL CBC WITH AUTO DIFFon BASOPHILS ABSOLUTE AUTO 0 N [facility] Basophils/100 WBC (Bld) 0.2 % 0.2 - 2.0 % [facility] Eosinophils/100 WBC (Bld) 1.2 % 0.9 - 7.0 % [facility] Erythrocyte distribution width (RBC) [Ratio] 13.2 % 11.0 - 15.0 % [facility] Hematocrit (Bld) [Volume fraction] 31.9 % Low 36.0 - 48.0 % [facility] Hemoglobin (Bld) [Mass/Vol] 10.6 g/dL Low 12.0 - 16.0 g/dL [facility] IMMATURE GRANULOCYTES ABS AUTO 0.06 High [facility] Immature granulocytes/100 WBC (Bld) 0.6 % High 0.0 - 0.5 % [facility] Interpretation and review of laboratory results Abnormal [facility] LYMPHOCYTES ABSOLUTE AUTO 1.6 [facility] Lymphocytes/100 WBC (Bld) 15.6 % Low 20.5 - 60.0 % [facility] MCH (RBC) [Entitic mass] 32.6 pg 26.7 - 34.0 pg [facility] MCHC (RBC) [Mass/Vol] 33.2 g/dL 29.9 - 35.2 g/dL [facility] MCV (RBC) [Entitic vol] 98.2 fL 81.0 - 99.0 fL [facility] MONOCYTES ABSOLUTE AUTO 0.6 N [facility] Monocytes/100 WBC (Bld) 6 % 1.7 - 12.0 % [facility] NEUTROPHILS ABSOLUTE AUTO 7.7 High [facility] Neutrophils/100 WBC (Bld) 76.4 % High 43.0 - 75.0 % [facility] Platelet mean volume (Bld) [Entitic vol] 9 fL Low 9.5 - 13.5 fL [facility] TBH EO # 0.1 [facility]H PLT 313 [facility] TB RBC 3.25 Low [facility] TB WBC 10.1 [facility] GLUCOSE 1 HOURon 04-18-2025 Glucose [Mass/Vol] 96 mg/dL NINF - 13 0 mg/dL [facility] No Panel Informationon 04-18 [facility] US OB LIMITED 1+ FETUSESon [...] II, MD, PHD at 21-Apr-2025 12:15:59 PM [facility] Normal Not Available Comment on above: Order Comment: US OB INCOMPLETE ANATOMY W US OB TRANSVAGINAL Estimated Date of Delivery: 08/09/25 Gestational Age as of 03/30/2025: 21w1d Urinalysis macro (dipstick) panel (U)on 03-30-2025 Bilirubin, UA Negative Negative - 4(70) +++ mg/dL [facility] Blood, UA Negative Negative - 50 Ezequiel/mcL [facility] Clarity, UA Clear [facility] Color, UA Yellow [facility] Glucose, UA Negative Negative - 2000(110) ++++ mg/dL [facility] Interpretation and review of laboratory results Normal [facility] Ketones, UA Negative Negative - 160(16) ++++ mg/dL [facility] Leukocytes, UA Negative Negative - 500+++ Jason/mcL [facility] Nitrite, UA Negative Negative - Positive [facility] pH, UA 7 5 - 9 [facility] Protein, UA Negative Negative - 2000(20) ++++ mg/dL [facility] Spec Grav, UA 1.02 1 - 1.03 [facility] Urobilinogen, UA 0.2 0.2 - 12 mg/dL [facility] US OB ANATOMYon 03-21-2025 [facility] [address] [place] [address] Ultrasound Report Signed Patient: ANGELA REYES MR#: [id number] : 1990 Acct:[id number] Age/Sex: 35 / F ADM Date: 03/20/25 Loc: US Attending Dr: Deisy Villar Ordering Physician: Deisy Villar Date of Service: 03/20/25 Procedure(s): US OB anatomy Accession Number(s): [id number] cc: Deisy Villar; Robles Charles D.O. [place] [id number] Patient Name: ANGELA REYES MRN: [facility]:[id number] date: 1990 Sex: F Assigned Patient Location: US Current Patient Location: Accession/Order Number: [id number] Exam Date: 03/21/2025 13:12 Report Date: 03/21/2025 [...] Aguilar Durand M.D.03/21/2025 1:16 PM Dictation Location: [employer] Electronically authenticated by: [id number] Y Date: 03/21/2025 13:16 Dictated By: Aguilar Durand D.O. Signed By: 03/21/25 1319 DD/ 15 TD/TT: Repair Weaver: [facility] RadiologyTyrese MD - 03/21/2025 [place] [address] Ultrasound Report Signed Patient: ANGELA REYES MR#: [id number] : 1990 Acct:[id number] Age/Sex: 35 / F ADM Date: 03/20/25 Loc: US Attending Dr: Deisy Villar Ordering Physician: Deisy Villar Date of Service: 03/20/25 Procedure(s): US OB anatomy Accession Number(s): [id number] cc: Deisy Villar; Robles Charles D.O. The [address] [address] Patient Name: ANGELA REYES MRN: [facility]:[id number] date: 1990 Sex: F Assigned Patient Location: US Current Patient Location: Accession/Order Number: [id number] Exam Date: 03/21/2025 13:12 Report Date: 03/21/2025 [...] Aguilar Durand M.D.03/21/2025 1:16 PM Dictation Location: [employer] Electronically authenticated by: [id number] Y Date: 03/21/2025 13:16 Dictated By: Aguilar Durand D.O. Signed By: 03/21/25 1319 DD/ 15 TD/TT: Repair Weaver: [facility] Radiology Study observation (narrative) [facility] US OB ANATOMYOrdered By: Chepe iologdarwin Radiology on 03-21-2025 [facility] Work Phone: US OB CERVICAL LENGTHon 03-01 [place] [id number] Ultrasound Report Signed Patient: ANGELA REYES MR#: [id number] : 1990 Acct:[id number] Age/Sex: 35 / F ADM Date: 03/20/25 Loc: US Attending Dr: Deisy Villar Ordering Physician: Deisy Villar Date of Service: 03/20/25 Procedure(s): US OB cervical length Accession Number(s): [id number] cc: Deisy Villar; Robles Charles D.O. The [address] [address] Patient Name: ANGELA REYES MRN: [facility]:[id number] date: 1990 Sex: F Assigned Patient Location: US Current Patient Location: Accession/Order Number: [id number] Exam Date: 03/21/2025 09:18 Report Date: 03/21/2025 09:19 At the request of: DEISY VILLAR Procedure: US OB cervical length Ultrasound assessment of the cervical length The cervical length is 3.8 cm. The cervical os is closed. US/US OB cervical length IMPRESSION: #3.8 cm cervical length. Impression dictated by: Aguilar Durand M.D.03/21/2025 9:19 AM Dictation Location: [employer] Electronically authenticated by: [id number] Y Date: 03/21/2025 09:19 Dictated By: Aguilar Durand D.O. Signed By: 03/21/25921 DD/ 8 TD/TT: Repair Weaver: [facility] RadiologyNeelimaogbrittanie pa MD - 03/21/2025 [place] [address] Ultrasound Report Signed Patient: ANGELA REYES MR#: [id number] : 1990 Acct:[id number] Age/Sex: 35 / F ADM Date: 03/20/25 Loc: US Attending Dr: Deisy Villar Ordering Physician: Deisy Villar Date of Service: 03/20/25 Procedure(s): US OB cervical length Accession Number(s): [id number] cc: Deisy Villar; Robles Charles D.O. The [place] [id number] Patient Name: ANGELA REYES MRN: [facility]:[id number] date: 1990 Sex: F Assigned Patient Location: US Current Patient Location: Accession/Order Number: [id number] Exam Date: 03/21/2025 09:18 Report Date: 03/21/2025 09:19 At the request of: DEISY VILLAR Procedure: US OB cervical length Ultrasound assessment of the cervical length The cervical length is 3.8 cm. The cervical os is closed. US/US OB cervical length IMPRESSION: #3.8 cm cervical length. Impression dictated by: Aguilar Durand M.D.03/21/2025 9:19 AM Dictation Location: [employer] Electronically authenticated by: [id number] Y Date: 03/21/2025 09:19 Dictated By: Aguilar Durand D.O. Signed By: 03/21/25921 DD/ 8 TD/TT: Repair Weaver: [facility] Radiology Study observation (narrative) [facility] US OB CERVICAL LENGTHOrdered By: Radiologist Radiology on 03-21-2025 [facility] Work Phone: IGP,APTIMA HPV,AGE GDLNon AGE GDLN ACOG TESTING Note . [facility] Comment on above: TESTS RESULT FLAG U NITS REF RANGE LAB Clinician Provided Cytology Information Source.............Cervix Other.............. No. of containers..01 ThinPrep Vial Age Algo ACOG Lara... 30-65 01 FLAG LEGEND: L-Low Normal,H-High Normal,LL-Alert Low,HH-Alert High <-Panic Low,>-Panic High,A-Abnormal,AA-Critical Abnormal Performed at: 01 =G [address] [address] Ilana Heath MD, HPV APTIMA Negative Negative [facility] Comment on above: This nucleic acid am plification test detects fourteen high- risk HPV types (16,18,31,33,35,39,45,51,52,56,58,59,66,68) without differentiation. Performed at: =G - [facility] [address], [place] [id number] [employer] Technician: Ilana Heath MD, Phone: [phone] Performed at: - [facility], [place] [id number] [employer] Site [employer] Technician: Ilana Heath MD, Phone: [phone] IGP, APTIMA HPV, RFX 16/18,45 Note . [facility] Comment on above: TESTS RESULT FLAG UN ITS REF RANGE LAB DIAGNOSIS: 02 NEGATIVE FOR INTRAEPITHELIAL LESION OR MALIGNANCY. THIS SPECIMEN WAS RESCREENED PART OF OUR [employer]. Specimen adequacy: 02 Satisfactory for evaluation. No endocervical component is identified. Performed by: 03 Eugenia Kennedy, Home Furnishings Sales Representative (ASCP) QC reviewed by: 02 Meredith Chávez, Ink Technician . 02 Note: Note 02 The Pap [...] High,A-Abnormal,AA-Critical Abnormal Performed at: 02 [facility] [address] [address] Ilana Heath MD, 03 KWCYT [facility] [place] [facility] [address] [place] [address] Lloyd Kim MD, [facility] RECURRENT VAGINITIS (HTRX)on 03-03-2025 ATOPOBIUM VAGINAE 0 [facility] Healthcare ATOPOBIUM VAGINAE Not detected [facility] BVAB 2,3 (BACTERIAL VAGINOSIS ASSOCIATED BACTERIA 2, 3); MOBILUNCUS SPP 0 [facility] BVAB 2,3 (BACTERIAL VAGINOSIS ASSOCIATED BACTERIA 2, 3); MOBILUNCUS SPP Not detected [facility] ANEUDY ALBICANS, PARAPSILOSIS, TROPICALIS 0 [facility] ANEUDY ALBICANS, PARAPSILOSIS, TROPICALIS Not detected [facility] ANEUDY GLABRATA 0 [facility] ANEUDY GLABRATA Not detected [facility] ANEUDY KRUSEI 0 [facility] ANEUDY KRUSEI Not detected [facility] CHLAMYDIA TRACHOMATIS 0 [facility] CHLAMYDIA TRACHOMATIS Not detected N [facility] GARDNERELLA VAGINALIS 0 [facility] GARDNERELLA VAGINALIS Not detected [facility] MEGASPHAERA (TYPES 1, 2) 0 [facility] Healthcare MEGASPHAERA (TYPES 1, 2) Not detected [facility] MYCOPLASMA GENITALIUM 0 [facility] MYCOPLASMA GENITALIUM Not detected [facility] NEISSERIA GONORRHOEAE 0 [facility] NEISSERIA GONORRHOEAE Not detected N S [facility] TRICHOMONAS VAGINALIS 0 [facility] TRICHOMONAS VAGINALIS Not detected [facility] Urinalysis macro (dipstick) panel (U)on 03-02-2025 Bilirubin, UA Negative Negative - 4(70) +++ mg/dL [facility] Blood, UA Negative Negative - 50 Ezequiel/mcL [facility] Clarity, UA Clear [facility] Color, UA Yellow [facility] Glucose, UA Negative Negative - 2000(110) ++++ mg/dL [facility] Interpretation and review of laboratory results Normal [facility] Ketones, UA Negative Negative - 160(16) ++++ mg/dL [facility] Leukocytes, UA Negative Negative - 500+++ Jason/mcL [facility] Nitrite, UA Negative Negative - Positive [facility] pH, UA 7 5 - 9 [facility] Protein, UA Negative Negative - 1999(20) ++++ mg/dL [facility] Spec Grav, UA 1.02 1 - 1.03 [facility] Urobilinogen, UA 0.2 0.2 - 12 mg/dL [facility] Urinalysis macro (dipstick) panel (U)on 02-02-2025 Bilirubin, UA Negative Negative - 4(70) +++ mg/dL [facility] Blood, UA Negative Negative - 50 Ezequiel/mcL [facility] Clarity, UA Clear [facility] Color, UA Yellow [facility] Glucose, UA Negative Negative - 1999(110) ++++ mg/dL [facility] Interpretation and review of laboratory results Abnormal [facility] Ketones, UA Negative Negative - 160(16) ++++ mg/dL [facility] Leukocytes, UA Trace Negative - 500+++ Jason/mcL [facility] Nitrite, UA Negative Negative - Positive [facility] pH, UA 6 5 - 9 [facility] Protein, UA Negative Negative - 1999(20) ++++ mg/dL [facility] Spec Grav, UA 1.025 1 - 1.03 [facility] Urobilinogen, UA 0.2 0.2 - 12 mg/dL [facility] ALL CBC WITH AUTO DIFFon BASOPHILS ABSOLUTE AUTO 0 N [facility] Basophils/100 WBC (Bld) 0.4 % 0.2 - 2.0 % [facility] Eosinophils/100 WBC (Bld) 2.2 % 0.9 - 7.0 % [facility] Erythrocyte distribution width (RBC) [Ratio] 12.5 % 11.0 - 15.0 % [facility] Hematocrit (Bld) [Volume fraction] 34 % Low 36.0 - 48.0 % [facility] Hemoglobin (Bld) [Mass/Vol] 11.7 g/dL Low 12.0 - 16.0 g/dL [facility] IMMATURE GRANULOCYTES ABS AUTO 0.03 [facility] Immature granulocytes/100 WBC (Bld) 0.4 % 0.0 - 0.5 % [facility] Interpretation and review of laboratory results Abnormal [facility] LYMPHOCYTES ABSOLUTE AUTO 1.6 [facility] Lymphocytes/100 WBC (Bld) 20.4 % Low 20.5 - 60.0 % [facility] MCH (RBC) [Entitic mass] 31.5 pg 26.7 - 34.0 pg [facility] MCHC (RBC) [Mass/Vol] 34.4 g/dL 29.9 - 35.2 g/dL [facility] MCV (RBC) [Entitic vol] 91.6 fL 81.0 - 99.0 fL [facility] MONOCYTES ABSOLUTE AUTO 0.6 N [facility] Monocytes/100 WBC (Bld) 7.2 % 1.7 - 12.0 % [facility] NEUTROPHILS ABSOLUTE AUTO 5.6 [facility] Neutrophils/100 WBC (Bld) 69.4 % 43.0 - 75.0 % [facility] Platelet mean volume (Bld) [Entitic vol] 9.6 fL 9.5 - 13.5 fL [facility] TBH EO # 0.2 [facility] TB PLT 302 [facility] TB RBC 3.71 Low [facility] WBC 8 [facility] US OB TRANSVAGINALon 025 US [...] II, MD, PHD at 09-Jan-2025 09:10:54 AM [facility] Normal Not Available Comment on above: Order Comment: US OB TRANSVAGINAL No LMP recorded. [facility] PREG QUANT HCGon 025 HCG QUANTITATIVE [address] mIU/mL [facility] Comment on above: 5-50 0.2-1 WEEK 50-500 1-2 WEEKS 100-5,000 2-3 WEEKS 500-10,000 3-4 WEEKS 1,000-50,000 4-5 WEEKS 10,000-100,000 5-6 WEEKS 15,000-200,000 6-8 WEEKS 10,000-100,000 2[facility] 025 HCG QUANTITATIVE [address] mIU/mL [facility] Comment on above: 5-50 0.2-1 WEEK 50-500 1-2 WEEKS 100-5,000 2-3 WEEKS 500-10,000 3-4 WEEKS 1,000-50,000 4-5 WEEKS 10,000-100,000 5-6 WEEKS 15,000-200,000 6-8 WEEKS 10,000-100,000 2-3 [facility] Automated basophil %Ordered By: Delano Francis on 09-22-2024 Basophils/100 WBC (Bld) 0.6 % Normal . [facility] Comment on above: Performed By: #### D HEAS, LC T4, [id number], SEROTON, TEST F + T, T3R, THYGLOB AB, ESTRADIOL, TPO, SHBG, ESTRONE, INSULIN, PROG #### [facility] , #### T4F, TRISTEN, TSH3, A1C WTH eA, FILIBERTO, GLU, T3F #### [address] Automated basophil countOrde red By: Delano Francis on 09-22-2024 Basophils (Bld) [#/Vol] 0.0 10*3/uL Normal 0.0-0.2 [facility] Comment on above: Result Comment: PERF ORMED BY: [place] [address] PATHOLOGIST GYN JOSE GOEL M.D. Performed By: #### D HEAS, LC T4, [id number], SEROTON, TEST F + T, T3R, THYGLOB AB, ESTRADIOL, TPO, SHBG, ESTRONE, INSULIN, PROG #### [facility] , #### T4F, TRISTEN, TSH3, A1C WTH eA, FILIBERTO, GLU, T3F #### [address] Automated blood monocyte cou ntOrdered By: Delano Francis on 09-22-2024 Monocytes (Bld) [#/Vol] 0.4 10*3/uL Normal 0.0-0.8 [facility] Comment on above: Performed By: #### D HEAS, LC T4, [id number], SEROTON, TEST F + T, T3R, THYGLOB AB, ESTRADIOL, TPO, SHBG, ESTRONE, INSULIN, PROG #### [facility] , #### T4F, TRISTEN, TSH3, A1C WTH eA, FILIBERTO, GLU, T3F #### [address] Automated eosinophil %Ordere d By: Delano Francis on 09-22-2024 Eosinophils/100 WBC (Bld) 1.7 % Normal . [facility] Comment on above: Performed By: #### D HEAS, LC T4, [id number], SEROTON, TEST F + T, T3R, THYGLOB AB, ESTRADIOL, TPO, SHBG, ESTRONE, INSULIN, PROG #### [facility] , #### T4F, TRISTEN, TSH3, A1C WTH eA, FILIBERTO, GLU, T3F #### [address] Automated eosinophil countOr dered By: Delano Francis on 09-22-2024 Eosinophils (Bld) [#/Vol] 0.1 10*3/uL Normal 0.0-0.45 [facility] Comment on above: Performed By: #### D HEAS, LC T4, [id number], SEROTON, TEST F + T, T3R, THYGLOB AB, ESTRADIOL, TPO, SHBG, ESTRONE, INSULIN, PROG #### [facility] , #### T4F, TRISTEN, TSH3, A1C WTH eA, FILIBERTO, GLU, T3F #### [facility] [address] Automated monocyte %Ordered By: Delano Francis on 09-22-2024 Monocytes/100 WBC (Bld) 8.7 % Normal . [facility] Comment on above: Performed By: #### D DANIELLEAS, LC T4, [id number], SEROTON, TEST F + T, T3R, THYGLOB AB, ESTRADIOL, TPO, SHBG, ESTRONE, INSULIN, PROG #### [facility] , #### T4F, TRISTEN, TSH3, A1C WTH eA, FILIBERTO, GLU, T3F #### [facility] [address] [place] [address] Automated neutrophil %Ordere d By: Delano Francis on 09-22-2024 Neutrophils/100 WBC (Bld) 63.7 % Normal . [facility] Comment on above: Performed By: #### D HEAS, LC T4, [id number], SEROTON, TEST F + T, T3R, THYGLOB AB, ESTRADIOL, TPO, SHBG, ESTRONE, INSULIN, PROG #### [facility] , #### T4F, TRISTEN, TSH3, A1C WTH eA, FILIBERTO, GLU, T3F #### [address] Basophils Auto (Bld) [#/Vol] Ordered By: Delano Francis on 09-22-2024 Basophils (Bld) [#/Vol] Automated basophil count 0.0-0.2 [facility] Basophils/100 WBC Auto (Bld) Ordered By: Delano Francis on 09-22-2024 Basophils/100 WBC (Bld) Automated basophil % . [facility] Calcium [Mass/volume] in Ser um or PlasmaOrdered By: Delano Francis on 09-22-2024 Calcium [Mass/Vol] 9.4 mg/dL Normal 8.6-10.3 [facility] Comment on above: Performed By: #### D VENITA, LC T4, [id number], SEROTON, TEST F + T, T3R, THYGLOB AB, ESTRADIOL, TPO, SHBG, ESTRONE, INSULIN, PROG #### [facility] , #### T4F, TRISTEN, TSH3, A1C WTH eA, FILIBERTO, GLU, T3F #### [facility] [address] Calcium [Mass/Vol] Calcium [Mass/volume ] in Serum or Plasma 8.6-10.3 [facility] Carbon dioxide, total [Moles /volume] in Serum or PlasmaOrdered By: Delano Francis on 09-22-2024 CO2 [Moles/Vol] 29.2 mmol/L Normal 21.0-31.0 [facility] Comment on above: Performed By: #### D VENITA, LC T4, [id number], SEROTON, TEST F + T, T3R, THYGLOB AB, ESTRADIOL, TPO, SHBG, ESTRONE, INSULIN, PROG #### [facility] , #### T4F, TRISTEN, TSH3, A1C WTH eA, FILIBERTO, GLU, T3F #### [facility] [address] [place] [address] [place] CO2 [Moles/Vol] Carbon dioxide, tota l [Moles/volume] in Serum or Plasma 21.0-31.0 [facility] Chloride [Moles/volume] in S stevo or PlasmaOrdered By: Delano Francis on 09-22-2024 Chloride [Moles/Vol] 105 mmol/L Normal 98-107 [facility] Comment on above: Performed By: #### D HEAS, LC T4, [id number], SEROTON, TEST F + T, T3R, THYGLOB AB, ESTRADIOL, TPO, SHBG, ESTRONE, INSULIN, PROG #### [facility] , #### T4F, TRISTEN, TSH3, A1C WTH eA, FILIBERTO, GLU, T3F #### [facility] [address] Chloride [Moles/Vol] Chloride [Moles/vol ume] in Serum or Plasma 98-107 [facility] Cholesterol [Mass/volume] in Serum or PlasmaOrdered By: Delano Francis on 09-22-2024 Cholesterol [Mass/Vol] 217 mg/dL High 140-200 [facility] Comment on above: Chol less than 200 m g/dl low riskChol 201-239 mg/dl borderline riskChol 240 mg/dl and greater high risk Result Comment: Chol less than 200 mg/dl low risk Chol 201-239 mg/dl borderline risk Chol 240 mg/dl and greater high risk Performed By: #### D HEAS, LC T4, [id number], SEROTON, TEST F + T, T3R, THYGLOB AB, ESTRADIOL, TPO, SHBG, ESTRONE, INSULIN, PROG #### [facility] , #### T4F, TRISTEN, TSH3, A1C WTH eA, FILIBERTO, GLU, T3F #### [facility] [address] Cholesterol [Mass/Vol] Cholesterol [Mass/volume] in Serum or Plasma High 140-200 [facility] Comment on above: Chol less than 200 m g/dl low riskChol 201-239 mg/dl borderline riskChol 240 mg/dl and greater high risk Cholesterol in HDL [Mass/vol ume] in Serum or PlasmaOrdered By: Delano Francis on 09-22-2024 Cholesterol in HDL [Mass/Vol] Serum or plasma high density lipoprotein (HDL) cholesterol measurement 23- [facility] Comment on above: HDL CHOL ATP-III CLA SSIFICATION Cardiovascular RiskHDL > or equal to 60 mg/dL LOWHDL < 40 mg/dL HIGH Cholesterol in LDL Calc [Mas s/Vol]Ordered By: Delano Francis on 09-22-2024 Cholesterol in LDL [Mass/Vol] 148 mg/dL High 0-100 [facility] Comment on above: LDL ATP III CLASSIFI CATIONLDL less than 100 mg/dL OptimalLDL 100-129 mg/dL Near or above optimalLDL 130-159 mg/dL Borderline highLDL 160-189 mg/dL HighLDL greater than 189 mg/dL Very high Cholesterol in LDL [Mass/Vol] Cholesterol in LDL [Mass/volume] in Serum or Plasma by calculation High 0-100 [facility] Comment on above: LDL ATP III CLASSIFI CATIONLDL less than 100 mg/dL OptimalLDL 100-129 mg/dL Near or above optimalLDL 130-159 mg/dL Borderline highLDL 160-189 mg/dL HighLDL greater than 189 mg/dL Very high Cholesterol in VLDL Calc [Ma ss/Vol]Ordered By: Delano Francis on 09-22-2024 Cholesterol in VLDL [Mass/Vol] 10 mg/dL [facility] Cholesterol in VLDL [Mass/Vol] Cholesterol in VLDL [Mass/volume] in Serum or Plasma by calculation [facility] Creatinine [Mass/volume] in Serum or PlasmaOrdered By: Delano Francis on 09-22-2024 Creatinine [Mass/Vol] 0.73 mg/dL Normal 0.60-1.20 [facility] Comment on above: Performed By: #### D JOSSE NATHAN T4, [id number], SEROTON, TEST F + T, T3R, THYGLOB AB, ESTRADIOL, TPO, SHBG, ESTRONE, INSULIN, PROG #### [facility] , #### T4F, TRISTEN, TSH3, A1C WTH eA, FILIBERTO, GLU, T3F #### [facility] [address] [place] [address] Creatinine [Mass/Vol] Creatinine [Mass/v olume] in Serum or Plasma 0.60-1.20 [facility] Employee Basic Metabolic Olvera asher 09-22-2024 GFR/1.73 sq M.predicted MDRD (S/P/Bld) [Vol rate/Area] mL/min/{1.73_m2} Normal [facility] Comment on above: Performed By: #### D JOSSE NATHAN T4, [id number], SEROTON, TEST F + T, T3R, THYGLOB AB, ESTRADIOL, TPO, SHBG, ESTRONE, INSULIN, PROG #### [facility] , #### T4F, TRISTEN, TSH3, A1C WTH eA, FILIBERTO, GLU, T3F #### [facility] [address] Employee Complete Blood Coun ton 09-22-2024 Mean Corpuscular HGB Conc 34.2 g/dL Normal 32.0-35.0 [facility] Comment on above: Performed By: #### D HEAS, LC T4, [id number], SEROTON, TEST F + T, T3R, THYGLOB AB, ESTRADIOL, TPO, SHBG, ESTRONE, INSULIN, PROG #### [facility] , #### T4F, TRISTEN, TSH3, A1C WTH eA, FILIBERTO, GLU, T3F #### [address] NRBC% 0.0 /100{WBC} Normal 0-0.5 [facility] Comment on above: Performed By: #### D HEAS, LC T4, [id number], SEROTON, TEST F + T, T3R, THYGLOB AB, ESTRADIOL, TPO, SHBG, ESTRONE, INSULIN, PROG #### [facility] , #### T4F, TRISTEN, TSH3, A1C WTH eA, FILIBERTO, GLU, T3F #### [address] Employee Lipid Profileon LDL Cholesterol,Calculated 148 mg/dL High 0-100 [facility] Comment on above: Result Comment: LDL ATP III CLASSIFICATION LDL less than 100 mg/dL Optimal LDL 100-129 mg/dL Near or above optimal LDL 130-159 mg/dL Borderline high LDL 160-189 mg/dL High LDL greater than 189 mg/dL Very high Performed By: #### D HEAS, LC T4, [id number], SEROTON, TEST F + T, T3R, THYGLOB AB, ESTRADIOL, TPO, SHBG, ESTRONE, INSULIN, PROG #### [facility] , #### T4F, TRISTEN, TSH3, A1C WTH eA, FILIBERTO, GLU, T3F #### [address] Triglyceride w/Reflex 52 mg/dL Normal 0-149 [facility] Comment on above: Result Comment: TRIG ATP III CLASSIFICATION TRIG less than 150 mg/dL Normal TRIG 150-199 mg/dL Borderline high TRIG 200-500 mg/dL High TRIG greater than 500 mg/dL Very high Standard traceable to the Center for Disease Conrtrol and Prevention (CDC) test method. Performed By: #### D HEAS, LC T4, [id number], SEROTON, TEST F + T, T3R, THYGLOB AB, ESTRADIOL, TPO, SHBG, ESTRONE, INSULIN, PROG #### [facility] , #### T4F, TRISTEN, TSH3, A1C WTH eA, FILIBERTO, GLU, T3F #### [address] VLDL CHOLESTEROL 10 mg/dL Normal [facility] Comment on above: Performed By: #### D HEAS, LC T4, [id number], SEROTON, TEST F + T, T3R, THYGLOB AB, ESTRADIOL, TPO, SHBG, ESTRONE, INSULIN, PROG #### [facility] , #### T4F, TRISTEN, TSH3, A1C WTH eA, FILIBERTO, GLU, T3F #### [address] Employee Thyroid Stim Hormon lonnie 09-22-2024 Employee Thyroid Stim Hormone 2.30 u[iU]/mL Normal 0.45-5.33 [facility] Comment on above: Result Comment: PERF ORMED BY: [place] [address] PATHOLOGIST GYN JOSE GOEL M.D. Performed By: #### D HEAS, LC T4, [id number], SEROTON, TEST F + T, T3R, THYGLOB AB, ESTRADIOL, TPO, SHBG, ESTRONE, INSULIN, PROG #### [facility] , #### T4F, TRISTEN, TSH3, A1C WTH eA, FILIBERTO, GLU, T3F #### [facility] [address] [place] [address] [place] Eosinophils Auto (Bld) [#/Vo l]Ordered By: Delano Francis on 09-22-2024 Eosinophils (Bld) [#/Vol] Automated eosinophil count 0.0-0.45 [facility] Eosinophils/100 WBC Auto (Bl d)Ordered By: Delano Francis on 09-22-2024 Eosinophils/100 WBC (Bld) Automated eosinophil % . [facility] Erythrocyte distribution wid th Auto (RBC) [Ratio]Ordered By: Delano Francis on 09-22-2024 Erythrocyte distribution width (RBC) [Ratio] Erythrocyte distribution width [Ratio] by Automated count 11.9-15.3 [facility] Erythrocyte distribution wid th [Ratio] by Automated countOrdered By: Delano Francis on 09-22-2024 Erythrocyte distribution width (RBC) [Ratio] 13.2 % Normal 11.9-15.3 [facility] Comment on above: Performed By: #### D HEAS, LC T4, [id number], SEROTON, TEST F + T, T3R, THYGLOB AB, ESTRADIOL, TPO, SHBG, ESTRONE, INSULIN, PROG #### [facility] , #### T4F, TRISTEN, TSH3, A1C WTH eA, FILIBERTO, GLU, T3F #### [facility] [address] Erythrocytes [#/volume] in B lood by Automated countOrdered By: Delano Francis on 09-22-2024 RBC (Bld) [#/Vol] 3.91 10*6/uL Normal 3.60-5.00 [facility] Comment on above: Performed By: #### D HEAS, LC T4, [id number], SEROTON, TEST F + T, T3R, THYGLOB AB, ESTRADIOL, TPO, SHBG, ESTRONE, INSULIN, PROG #### [facility] , #### T4F, TRISTEN, TSH3, A1C WTH eA, FILIBERTO, GLU, T3F #### [facility] [address] [place] [address] [place] Glucose [Mass/volume] in Ser um or PlasmaOrdered By: Delano Francis on 09-22-2024 Glucose [Mass/Vol] 83 mg/dL Normal 70-100 [facility] Comment on above: Performed By: #### D VENITA, LC T4, [id number], SEROTON, TEST F + T, T3R, THYGLOB AB, ESTRADIOL, TPO, SHBG, ESTRONE, INSULIN, PROG #### [facility] , #### T4F, TRISTEN, TSH3, A1C WTH eA, FILIBERTO, GLU, T3F #### [facility] [address] [place] [address] [place] Glucose [Mass/Vol] Glucose [Mass/volume ] in Serum or Plasma 70-100 [facility] Hematocrit Auto (Bld) [Volum e fraction]Ordered By: Delano Francis on 09-22-2024 Hematocrit (Bld) [Volume fraction] Hematocrit [Volume Fraction] of Blood by Automated count 34.0-46.4 [facility] Hematocrit [Volume Fraction] of Blood by Automated countOrdered By: Delano Francis on 09-22-2024 Hematocrit (Bld) [Volume fraction] 35.9 % Normal 34.0-46.4 [facility] Comment on above: Performed By: #### D VENITA, JOSSE T4, [id number], SEROTON, TEST F + T, T3R, THYGLOB AB, ESTRADIOL, TPO, SHBG, ESTRONE, INSULIN, PROG #### [facility] , #### T4F, TRISTEN, TSH3, A1C WTH eA, FILIBERTO, GLU, T3F #### [facility] [address] [place] [address] [place] Hemoglobin [Mass/volume] in BloodOrdered By: Delano Francis on 09-22-2024 Hemoglobin (Bld) [Mass/Vol] 12.3 g/dL Normal 11.8-15.4 [facility] Comment on above: Performed By: #### D HEAS, LC T4, [id number], SEROTON, TEST F + T, T3R, THYGLOB AB, ESTRADIOL, TPO, SHBG, ESTRONE, INSULIN, PROG #### [facility] , #### T4F, TRISTEN, TSH3, A1C WTH eA, FILIBERTO, GLU, T3F #### [facility] [address] Hemoglobin (Bld) [Mass/Vol] Hemoglobin [Mass/volume] in Blood 11.8-15.4 [facility] Leukocytes [#/volume] correc calvin for nucleated erythrocytes in Blood by Automated counOrdered By: Delano Francis on 09-22-2024 WBC corrected for nucl RBC Auto (Bld) [#/Vol] 5.1 10*3/uL 3.8-11.6 [facility] WBC corrected for nucl RBC Auto (Bld) [#/Vol] Leukocytes [#/volume] corrected for nucleated erythrocytes in Blood by Automated coun 3.8-11.6 [facility] Leukocytes [#/volume] in Blo od by Automated countOrdered By: Delano Francis on 09-22-2024 WBC (Bld) [#/Vol] 5.1 10*3/uL Normal 3.8-11.6 [facility] Comment on above: Performed By: #### D HEAS, LC T4, [id number], SEROTON, TEST F + T, T3R, THYGLOB AB, ESTRADIOL, TPO, SHBG, ESTRONE, INSULIN, PROG #### [facility] , #### T4F, TRISTEN, TSH3, A1C WTH eA, FILIBERTO, GLU, T3F #### [facility] [address] [place] [address] [place] Lymphocytes Auto (Bld) [#/Vo l]Ordered By: Delano Francis on 09-22-2024 Lymphocytes (Bld) [#/Vol] Lymphocytes [#/volume] in Blood by Automated count 1.00-4.8 [facility] Lymphocytes [#/volume] in Bl ood by Automated countOrdered By: Delano Francis on 09-22-2024 Lymphocytes (Bld) [#/Vol] 1.3 10*3/uL Normal 1.00-4.8 [facility] Comment on above: Performed By: #### D HEAS, LC T4, [id number], SEROTON, TEST F + T, T3R, THYGLOB AB, ESTRADIOL, TPO, SHBG, ESTRONE, INSULIN, PROG #### [facility] , #### T4F, TRISTEN, TSH3, A1C WTH eA, FILIBERTO, GLU, T3F #### [address] Lymphocytes/100 WBC Auto (Bl d)Ordered By: Delano Francis on 09-22-2024 Lymphocytes/100 WBC (Bld) Lymphocytes/100 leukocytes in Blood by Automated count . [facility] Lymphocytes/100 leukocytes i n Blood by Automated countOrdered By: Delano Francis on 09-22-2024 Lymphocytes/100 WBC (Bld) 25.3 % Normal . [facility] Comment on above: Performed By: #### D HEAS, LC T4, [id number], SEROTON, TEST F + T, T3R, THYGLOB AB, ESTRADIOL, TPO, SHBG, ESTRONE, INSULIN, PROG #### [facility] , #### T4F, TRISTEN, TSH3, A1C WTH eA, FILIBERTO, GLU, T3F #### [facility] [address] [place] [address] MCH Auto (RBC) [Entitic mass ]Ordered By: Delano Francis on 09-22-2024 MCH (RBC) [Entitic mass] MCH [Entitic mass] by Automated count 24.7-34.3 [facility] MCH [Entitic mass] by Automa calvin countOrdered By: Delano Francis on 09-22-2024 MCH (RBC) [Entitic mass] 31.4 pg Normal 24.7-34.3 [facility] Comment on above: Performed By: #### D HEAS, LC T4, [id number], SEROTON, TEST F + T, T3R, THYGLOB AB, ESTRADIOL, TPO, SHBG, ESTRONE, INSULIN, PROG #### [facility] , #### T4F, TRISTEN, TSH3, A1C WTH eA, FILIBERTO, GLU, T3F #### [facility] [address] [place] [address] MCHC Auto (RBC) [Mass/Vol]Or dered By: Delano Francis on 09-22-2024 MCHC (RBC) [Mass/Vol] 34.2 g/dL 32.0-35.0 [facility] MCHC (RBC) [Mass/Vol] MCHC [Mass/volume] by Automated count 32.0-35.0 [facility] MCV Auto (RBC) [Entitic vol] Ordered By: Delano Francis on 09-22-2024 MCV (RBC) [Entitic vol] MCV [Entitic vol ume] by Automated count 80-100 [facility] MCV [Entitic volume] by Auto mated countOrdered By: Delano Francis on 09-22-2024 MCV (RBC) [Entitic vol] 91.7 fL Normal 80-100 [facility] Comment on above: Performed By: #### D HEAS, LC T4, [id number], SEROTON, TEST F + T, T3R, THYGLOB AB, ESTRADIOL, TPO, SHBG, ESTRONE, INSULIN, PROG #### [facility] , #### T4F, TRISTEN, TSH3, A1C WTH eA, FILIBERTO, GLU, T3F #### [facility] [address] [place] [address] Monocytes Auto (Bld) [#/Vol] Ordered By: Delano Francis on 09-22-2024 Monocytes (Bld) [#/Vol] Automated blood monocyte count 0.0-0.8 [facility] Monocytes/100 WBC Auto (Bld) Ordered By: Delano Francis on 09-22-2024 Monocytes/100 WBC (Bld) Automated monocyte % . [facility] Neutrophils Auto (Bld) [#/Vo l]Ordered By: Delano Francis on 09-22-2024 Neutrophils (Bld) [#/Vol] Neutrophils [#/volume] in Blood by Automated count 1.8-7.7 [facility] Neutrophils [#/volume] in Bl ood by Automated countOrdered By: Delano Francis on 09-22-2024 Neutrophils (Bld) [#/Vol] 3.2 10*3/uL Normal 1.8-7.7 [facility] Comment on above: Performed By: #### D HEAS, LC T4, [id number], SEROTON, TEST F + T, T3R, THYGLOB AB, ESTRADIOL, TPO, SHBG, ESTRONE, INSULIN, PROG #### [facility] , #### T4F, TRISTEN, TSH3, A1C WTH eA, FILIBERTO, GLU, T3F #### [facility] [address] Neutrophils/100 WBC Auto (Bl d)Ordered By: Delano Francis on 09-22-2024 Neutrophils/100 WBC (Bld) Automated neutrophil % . [facility] No Panel InformationOrdered By: Delano Francis on 09-22-2024 Estimated GFR (CKD-EPI) > 60.0 mL/Min [facility] Creatinine Clearance (Chem N/A [facility] Nucleated erythrocytes [Pres ence] in Blood by Automated countOrdered By: Delano Francis on 09-22-2024 Nucleated RBC Auto Ql (Bld) 0.0 /100{WBC} 0-0.5 [facility] Nucleated RBC Auto Ql (Bld) Nucleated erythrocytes [Presence] in Blood by Automated count 0-0.5 [facility] Platelet mean volume Auto (B ld) [Entitic vol]Ordered By: Delano Francis on 09-22-2024 Platelet mean volume (Bld) [Entitic vol] Platelet mean volume [Entitic volume] in Blood by Automated count 6.3-10.7 [facility] Platelet mean volume [Entiti c volume] in Blood by Automated countOrdered By: Delano Francis on 09-22-2024 Platelet mean volume (Bld) [Entitic vol] 7.3 fL Normal 6.3-10.7 [facility] Comment on above: Performed By: #### D HEAS, LC T4, [id number], SEROTON, TEST F + T, T3R, THYGLOB AB, ESTRADIOL, TPO, SHBG, ESTRONE, INSULIN, PROG #### [facility] , #### T4F, TRISTEN, TSH3, A1C WTH eA, FILIBERTO, GLU, T3F #### [facility] [address] Platelets Auto (Bld) [#/Vol] Ordered By: Delano Francis on 09-22-2024 Platelets (Bld) [#/Vol] Platelets [#/vol ume] in Blood by Automated count 150-450 [facility] Platelets [#/volume] in Bloo d by Automated countOrdered By: Delano Francis on 09-22-2024 Platelets (Bld) [#/Vol] 328 10*3/uL Normal 150-450 [facility] Comment on above: Performed By: #### D HEAS, LC T4, [id number], SEROTON, TEST F + T, T3R, THYGLOB AB, ESTRADIOL, TPO, SHBG, ESTRONE, INSULIN, PROG #### [facility] , #### T4F, TRISTEN, TSH3, A1C WTH eA, FILIBERTO, GLU, T3F #### [facility] [address] [place] [address] [place] Potassium [Moles/volume] in Serum or PlasmaOrdered By: Delano Francis on 09-22-2024 Potassium [Moles/Vol] 4.5 mmol/L Normal 3.5-5.1 [facility] Comment on above: Performed By: #### D HEAS, LC T4, [id number], SEROTON, TEST F + T, T3R, THYGLOB AB, ESTRADIOL, TPO, SHBG, ESTRONE, INSULIN, PROG #### [facility] , #### T4F, TRISTEN, TSH3, A1C WTH eA, FILIBERTO, GLU, T3F #### [facility] [address] [place] [address] [place] Potassium [Moles/Vol] Potassium [Moles/v olume] in Serum or Plasma 3.5-5.1 [facility] RBC Auto (Bld) [#/Vol]Ordere d By: Delano Francis on 09-22-2024 RBC (Bld) [#/Vol] Erythrocytes [#/volu me] in Blood by Automated count 3.60-5.00 [facility] Serum or plasma anion gap de terminationOrdered By: Delano Francis on 09-22-2024 Anion gap [Moles/Vol] 8.3 mmol/L Normal 6.0-15.0 [facility] Comment on above: Performed By: #### D JOSSE NATHAN T4, [id number], SEROTON, TEST F + T, T3R, THYGLOB AB, ESTRADIOL, TPO, SHBG, ESTRONE, INSULIN, PROG #### [facility] , #### T4F, TRISTEN, TSH3, A1C WTH eA, FILIBERTO, GLU, T3F #### [facility] [address] Anion gap [Moles/Vol] Serum or plasma an ion gap determination 6.0-15.0 [facility] Serum or plasma high density lipoprotein (HDL) cholesterol measurementOrdered By: Delano Francis on 09-22-2024 Cholesterol in HDL [Mass/Vol] 59 mg/dL Normal 23-92 [facility] Comment on above: HDL CHOL ATP-III CLA SSIFICATION Cardiovascular RiskHDL > or equal to 60 mg/dL LOWHDL < 40 mg/dL HIGH Result Comment: HDL CHOL ATP-III CLASSIFICATION Cardiovascular Risk HDL > or equal to 60 mg/dL LOW HDL < 40 mg/dL HIGH Performed By: #### D JOSSE NATHAN T4, [id number], SEROTON, TEST F + T, T3R, THYGLOB AB, ESTRADIOL, TPO, SHBG, ESTRONE, INSULIN, PROG #### [facility] , #### T4F, TRISTEN, TSH3, A1C WTH eA, FILIBERTO, GLU, T3F #### [facility] [address] Serum or plasma total choles terol/high density lipoprotein (HDL) cholesterol mass ratOrdered By: Delano Francis on 09-22-2024 Cholesterol.total/Alivia sterol in HDL [Mass ratio] 3.7 {ratio} Normal <5.0 [facility] Comment on above: Performed By: #### D HEAS, LC T4, [id number], SEROTON, TEST F + T, T3R, THYGLOB AB, ESTRADIOL, TPO, SHBG, ESTRONE, INSULIN, PROG #### [facility] , #### T4F, TRISTEN, TSH3, A1C WTH eA, FILIBERTO, GLU, T3F #### [facility] [address] Cholesterol.total/Alivia sterol in HDL [Mass ratio] Serum or plasma total cholesterol/high density lipoprotein (HDL) cholesterol mass rat <5.0 [facility] Sodium [Moles/volume] in Ser um or PlasmaOrdered By: Delano Francis on 09-22-2024 Sodium [Moles/Vol] 138 mmol/L Normal 136-145 [facility] Comment on above: Performed By: #### D HEAS, LC T4, [id number], SEROTON, TEST F + T, T3R, THYGLOB AB, ESTRADIOL, TPO, SHBG, ESTRONE, INSULIN, PROG #### [facility] , #### T4F, TRISTEN, TSH3, A1C WTH eA, FILIBERTO, GLU, T3F #### [facility] [address] [place] [address] [place] Sodium [Moles/Vol] Sodium [Moles/volume ] in Serum or Plasma 136-145 [facility] Thyrotropin [Units/volume] i n Serum or PlasmaOrdered By: Delano Francis on 09-22-2024 TSH Qn 2.30 m[IU]/L 0.45-5.33 [facility] TSH Qn Thyrotropin [Units/volume] in Serum or Plasma 0.45-5.33 [facility] Triglyceride [Mass/volume] i n Serum or PlasmaOrdered By: Delano Francis on 09-22-2024 Triglyceride [Mass/Vol] 52 mg/dL 0-149 [facility] Comment on above: TRIG ATP III CLASSIF ICATIONTRIG less than 150 mg/dL NormalTRIG 150-199 mg/dL Borderline highTRIG 200-500 mg/dL High TRIG greater than 500 mg/dL Very highStandard traceable to the Center for Disease Conrtrol and Prevention (CDC) test method. Triglyceride [Mass/Vol] Triglyceride [Mass/volume] in Serum or Plasma 0-149 [facility] Comment on above: TRIG ATP III CLASSIF ICATIONTRIG less than 150 mg/dL NormalTRIG 150-199 mg/dL Borderline highTRIG 200-500 mg/dL High TRIG greater than 500 mg/dL Very highStandard traceable to the Center for Disease Conrtrol and Prevention (CDC) test method. Urea nitrogen [Mass/volume] in Serum or PlasmaOrdered By: Delano Francis on 09-22-2024 Urea nitrogen [Mass/Vol] 9 mg/dL Normal 06-23 [facility] Comment on above: Performed By: #### D HESUE, LC T4, [id number], SEROTON, TEST F + T, T3R, THYGLOB AB, ESTRADIOL, TPO, SHBG, ESTRONE, INSULIN, PROG #### [facility] , #### T4F, TRISTEN, TSH3, A1C WTH eA, FILIBERTO, GLU, T3F #### [facility] [address] Urea nitrogen [Mass/Vol] Urea nitrogen [Mass/volume] in Serum or Plasma 06-23 [facility] WBC Auto (Bld) [#/Vol]Ordere d By: Delano Francis on 09-22-2024 WBC (Bld) [#/Vol] Leukocytes [#/volume ] in Blood by Automated count 3.8-11.6 [facility] IGP,APTIMA HPV,AGE GDLNon AGE GDLN ACOG TESTING Note . [facility] Comment on above: TESTS RESULT FLAG U NITS REF RANGE LAB Clinician Provided Cytology Information Source.............Cervix;Endocervix No. of containers..01 ThinPrep Vial Age Algo ACOG Lara... 30- FLAG LEGEND: L-Low Normal,H-High Normal,LL-Alert Low,HH-Alert High <-Panic Low,>-Panic High,A-Abnormal,AA-Critical Abnormal Performed at: 01 =[address] [id number] Ilana Heath MD, HPV APTIMA Negative Negative [facility] Comment on above: This nucleic acid am plification test detects fourteen high- risk HPV types (16,18,31,33,35,39,45,51,52,56,58,59,66,68) without differentiation. Performed at: =[address] [id number] [employer] Technician: Ilana Heath MD, Phone: [phone] Performed at: [address] [id number] [employer] Technician: Ilana Heath MD, Phone: [phone] IGP, APTIMA HPV, RFX 16/18,45 Note . [facility] Comment on above: TESTS RESULT FLAG UN ITS REF RANGE LAB DIAGNOSIS: 02 NEGATIVE FOR INTRAEPITHELIAL LESION OR MALIGNANCY. Specimen adequacy: 02 Satisfactory for evaluation. No endocervical component is identified. Performed by: 02 Chema Camargo, Ink Technician (ASC) . 02 Note: Note 02 The [...] High,A-Abnormal,AA-Critical Abnormal Performed at: 02 WB [facility] [address] [id number] Ilana Heath MD, BRUSH-SPATULA [facility] Cervical or vaginal smear or scraping studyon 09-13-2024 [facility] 1,25 Dihydroxy Vit D Calcitr olon 01-07-2024 1,25 Dihydroxy Vit D Calcitrol 56.6 pg/mL Normal 24.8-81.5 [facility] Comment on above: Result Comment: Perf ormed at: BN - [facility] [address] [id number] [employer] Technician: Quinton Wolf MD, Phone: [phone] Performed By: #### D JOSSE NATHAN T4, [id number], SEROTON, TEST F + T, T3R, THYGLOB AB, ESTRADIOL, TPO, SHBG, ESTRONE, INSULIN, PROG #### [facility] , #### T4F, TRISTEN, TSH3, A1C WTH eA, FILIBERTO, GLU, T3F #### [address] A1C with Estimated Average G luon 01-07-2024 Glucose [Mass/Vol] 105 mg/dL Normal [facility] Comment on above: Result Comment: PERF ORMED BY: [place] [address] PATHOLOGIST GYN JOSE GOEL M.D. Performed By: #### D HEAS, LC T4, [id number], SEROTON, TEST F + T, T3R, THYGLOB AB, ESTRADIOL, TPO, SHBG, ESTRONE, INSULIN, PROG #### [facility] , #### T4F, TRISTEN, TSH3, A1C WTH eA, FILIBERTO, GLU, T3F #### [place] [id number] [facility] Antithyroglobulin Abon 01-07 Antithyroglobulin Ab <1.0 Normal 0.0-0.9 [facility] Comment on above: Result Comment: Thyr oglobulin Antibody measured by [employer] Performed at: - [facility] [id number] [employer] Technician: Baudilio Leyva PhD, Phone: [phone] Performed By: #### D HEAS, LC T4, [id number], SEROTON, TEST F + T, T3R, THYGLOB AB, ESTRADIOL, TPO, SHBG, ESTRONE, INSULIN, PROG #### [facility] , #### T4F, TRISTEN, TSH3, A1C WTH eA, FILIBERTO, GLU, T3F #### [place] [id number] [facility] Cortisolon 01-07-2024 Cortisol 6.8 ug/dL Normal [facility] Comment on above: Result Comment: Refe rence range: AM 6 - 24 ug/dl PM <10 ug/dl [facility] Laboratory packing line operator and method: HELGA UNICEL DXI, POLYCLONAL ANTIBODY CORTISOL ASSAY. PERFORMED BY: [place] [address] PATHOLOGIST GYN JOSE GOEL M.D. Performed By: #### D HEAS, LC T4, [id number], SEROTON, TEST F + T, T3R, THYGLOB AB, ESTRADIOL, TPO, SHBG, ESTRONE, INSULIN, PROG #### [facility] , #### T4F, TRISTEN, TSH3, A1C WTH eA, FILIBERTO, GLU, T3F #### [facility] [address] [place] [address] [facility] Dehydroepiandrosterone Sulfa teOrdered By: Deisy Villar on 01-07-2024 Dehydroepiandrosterone Sulfate 174.0 ug/dL Normal 84.8-378.0 [facility] Comment on above: Performed By: #### Adria SANTOSAS, LC T4, [id number], SEROTON, TEST F + T, T3R, THYGLOB AB, ESTRADIOL, TPO, SHBG, ESTRONE, INSULIN, PROG #### [facility] , #### T4F, TRISTEN, TSH3, A1C WTH eA, FILIBERTO, GLU, T3F #### [facility] [address] [place] [address] [facility] Estradiolon 01-07-2024 Estradiol 300.0 pg/mL Normal . [facility] Comment on above: Result Comment: Adul t Female Range Follicular phase 12.5 - 166.0 Ovulation phase 85.8 - 498.0 Luteal phase 43.8 - 211.0 Postmenopausal <6.0 - 54.7 1st trimester 215.0 - >4300.0 Elías ECLIA methodology Performed By: #### D HEAS, LC T4, [id number], SEROTON, TEST F + T, T3R, THYGLOB AB, ESTRADIOL, TPO, SHBG, ESTRONE, INSULIN, PROG #### [facility] , #### T4F, TRISTEN, TSH3, A1C WTH eA, FILIBERTO, GLU, T3F #### [facility] [address] [place] [id number] [facility] Estrone, Serumon 01-07-2024 Estrone, Serum 46 pg/mL Normal 27-231 [facility] Comment on above: Result Comment: Joo hadley Adult (Premenopausal) 27 - 231 Menstrual Cycle (1-10 days) 19 - 149 Menstrual Cycle (11-20 days) 32 - 176 Menstrual Cycle (21-30 days) 37 - 200 Performed at: [address] [id number] [employer] Technician: Quinton Wolf MD, Phone: [phone] Performed By: #### D HEAS, LC T4, [id number], SEROTON, TEST F + T, T3R, THYGLOB AB, ESTRADIOL, TPO, SHBG, ESTRONE, INSULIN, PROG #### [facility] , #### T4F, TRISTEN, TSH3, A1C WTH eA, FILIBERTO, GLU, T3F #### [facility] [address] [place] [address] [place] Ferritin [Mass/volume] in Se rum or PlasmaOrdered By: Deisy Villar on 01-07-2024 Ferritin [Mass/Vol] 44.8 ng/mL Normal 11.0-306.8 [facility] Comment on above: Performed By: #### D VENITA, LC T4, [id number], SEROTON, TEST F + T, T3R, THYGLOB AB, ESTRADIOL, TPO, SHBG, ESTRONE, INSULIN, PROG #### [facility] , #### T4F, TRISTEN, TSH3, A1C WTH eA, FILIBERTO, GLU, T3F #### [facility] [address] Free testosterone measuremen t by LC-MS/MSOrdered By: Deisy Villar on 01-07-2024 Testosterone Free [Mass/Vol] 0.3 pg/mL 0.0-4.2 [facility] Comment on above: Performed at: [address] [id number] Director: Baudilio Leyva PhD, Phone: [phone] at: [facility] [id number] Director: Quinton Wolf MD, Phone: [phone] Glucose [Mass/volume] in Ser um or PlasmaOrdered By: Deisy Villar on 01-07-2024 Glucose [Mass/Vol] 84 mg/dL Normal 70-100 [facility] Comment on above: ADA recommended refe rence rangeRandom Glucose Reference Range is dependent on time and content of last meal. Glucose of more than 200 mg/dL in a nonstressed, ambulatory subject supports the diagnosis of Diabetes Mellitus. Result Comment: [place] om Glucose Reference Range is dependent on time and content of last meal. Glucose of more than 200 mg/dL in a nonstressed, ambulatory subject supports the diagnosis of Diabetes Mellitus. ADA recommended reference range Performed By: #### D VENITA, JOSSE T4, [id number], SEROTON, TEST F + T, T3R, THYGLOB AB, ESTRADIOL, TPO, SHBG, ESTRONE, INSULIN, PROG #### [facility] , #### T4F, TRISTEN, TSH3, A1C WTH eA, FILIBERTO, GLU, T3F #### [address] Glucose mean value [Mass/vol ume] in Blood Estimated from glycated hemoglobinOrdered By: Deisy Villar on 01-07-2024 Average glucose Estimated from glycated hemoglobin (Bld) [Mass/Vol] 105 mg/dL [facility] Hemoglobin A1c percentageOrd ered By: Deisy Villar on 01-07-2024 HbA1c (Bld) [Mass fraction] 5.3 % Normal 4.3-5.6 [facility] Comment on above: Increased risk for d iabetes: 5.7 - 6.4diabetes: >6.4glycemic control for adults with diabetes: <7.0 Result Comment: Incr eased risk for diabetes: 5.7 - 6.4 diabetes: >6.4 glycemic control for adults with diabetes: <7.0 Performed By: #### D DANIELLEAS, LC T4, [id number], SEROTON, TEST F + T, T3R, THYGLOB AB, ESTRADIOL, TPO, SHBG, ESTRONE, INSULIN, PROG #### [facility] , #### T4F, TRISTEN, TSH3, A1C WTH eA, FILIBERTO, GLU, T3F #### [address] Insulinon 01-07-2024 Insulin 4.5 u[iU]/mL Normal 2.6-24.9 [facility] Comment on above: Result Comment: Perf ormed at: [facility] [address] [id number] [employer] Site [employer] Technician: Baudilio Leyva PhD, Phone: [phone] Performed By: #### D HESUE, LC T4, [id number], SEROTON, TEST F + T, T3R, THYGLOB AB, ESTRADIOL, TPO, SHBG, ESTRONE, INSULIN, PROG #### [facility] , #### T4F, TRISTEN, TSH3, A1C WTH eA, FILIBERTO, GLU, T3F #### [address] [facility] Thyroxine (T4)on T4 [Mass/Vol] 8.2 ug/dL Normal 4.5-12.0 [facility] Comment on above: Performed By: #### D HEAS, LC T4, [id number], SEROTON, TEST F + T, T3R, THYGLOB AB, ESTRADIOL, TPO, SHBG, ESTRONE, INSULIN, PROG #### [facility] , #### T4F, TRISTEN, TSH3, A1C WTH eA, FILIBERTO, GLU, T3F #### [address] No Panel InformationOrdered By: Deisy Villar on 01-07-2024 Free Thyroxine (T4) Direct 8.2 ug/dL 4.5-12.0 [facility] Reverse Triiodothyronine (T3) 18.9 ng/dL 9.2-24.1 [facility] Comment on above: This test was devsairao ped and its performance characteristicsdetermined by [facility]. It has not been cleared orapproved by the Food and Drug Administration.Performed at: [address] [id number] Director: Quinton Wolf MD, Phone: [phone] Sex Hormone Binding Globulin 95.4 nmol/L 24.6-122.0 [facility] Comment on above: Performed at: [address] [id number] Director: Baudilio Leyva PhD, Phone: [phone] Plasma serotonin measurement (mass/volume)Ordered By: Deisy Villar on 01-07-2024 Serotonin (P) [Mass/Vol] 71 ng/mL [facility] Comment on above: This test was develo ped and its performance characteristicsdetermined by [employer]. It has not been cleared orapproved by the Food and Drug Administration.Performed at: [address] [id number] Director: Quinton Wolf MD, Phone: [phone] Progesteroneon 01-07-2024 Progesterone 0.2 ng/mL Normal . [facility] Comment on above: Result Comment: Foll icular phase 0.1 - 0.9 Luteal phase 1.8 - 23.9 Ovulation phase 0.1 - 12.0 First trimester 11.0 - 44.3 Second trimester 25.4 - 83.3 Third trimester 58.7 - 214.0 Postmenopausal 0.0 - 0.1 Performed By: #### D HEAS, LC T4, [id number], SEROTON, TEST F + T, T3R, THYGLOB AB, ESTRADIOL, TPO, SHBG, ESTRONE, INSULIN, PROG #### [facility] , #### T4F, TRISTEN, TSH3, A1C WTH eA, FILIBERTO, GLU, T3F #### [facility] [address] Random cortisol measurementO rdered By: Deisy Villar on 01-07-2024 Cortisol [Mass/Vol] 6.8 ug/dL [facility] Comment on above: [facility] packing line operator and method:ZeristaEL DXI, POLYCLONAL ANTIBODY CORTISOL ASSAY.Reference range: AM 6 - 24 ug/dl PM <10 ug/dl Serotonin, Serumon Serotonin, Serum 71 ng/mL Normal [facility] Comment on above: Result Comment: This test was developed and its performance characteristics determined by [facility]. It has not been cleared or approved by the Food and Drug Administration. Performed at: [address] [id number] [employer] Site [employer] Technician: Quinton Wolf MD, Phone: [phone] PERFORMED BY: [place] [address] PATHOLOGIST GYN JOSE GOEL M.D. Performed By: #### D HEAS, LC T4, [id number], SEROTON, TEST F + T, T3R, THYGLOB AB, ESTRADIOL, TPO, SHBG, ESTRONE, INSULIN, PROG #### [facility] , #### T4F, TRISTEN, TSH3, A1C WTH eA, FILIBERTO, GLU, T3F #### [address] Serum estrone measurementOrd ered By: Deisy Villar on 01-07-2024 E1 [Mass/Vol] 46 pg/mL 27-231 [facility] Comment on above: Range Adult (Premeno pausal) 27 - 231 Menstrual Cycle (1-10 days) 19 - 149 Menstrual Cycle (11-20 days) 32 - 176 Menstrual Cycle (21-30 days) 37 - 200Performed at: [facility] [id number] Director: Quinton Wolf MD, Phone: [phone] Serum or plasma calcitriol m easurement (mass/volume)Ordered By: Deisy Villar on 01-07-2024 1,25-dihydroxyvitamin D3 [Mass/Vol] 56.6 pg/mL 24.8-81.5 [facility] Comment on above: Performed at: - [facility] [address] [id number] Director: Quinton Wolf MD, Phone: [phone] Serum or plasma estradiol (E 2) measurement (mass/volume)Ordered By: Deisy Villar on 01-07-2024 E2 [Mass/Vol] 300.0 pg/mL . [facility] Comment on above: Adult Female Range F ollicular phase 12.5 - 166.0 Ovulation phase 85.8 - 498.0 Luteal phase 43.8 - 211.0 Postmenopausal <6.0 - 54.7 1st trimester 215.0 - >4300.0Roche ECLIA methodology Serum or plasma insulin kevin urement (units/volume)Ordered By: Deisy Villar on 01-07-2024 Insulin Qn 4.5 u[iU]/mL 2.6-24.9 [facility] Comment on above: Performed at: [facility] [place], [place] [id number] Director: Baudilio Leyva PhD, Phone: [phone] Serum or plasma progesterone measurement (mass/volume)Ordered By: Deisy Villar on 01-07-2024 Progesterone [Mass/Vol] 0.2 ng/mL . [facility] Comment on above: Follicular phase 0.1 - 0.9 Luteal phase 1.8 - 23.9 Ovulation phase 0.1 - 12.0 First trimester 11.0 - 44.3 Second trimester 25.4 - 83.3 Third trimester 58.7 - 214.0 Postmenopausal 0.0 - 0.1 Serum or plasma thyroglobuli n antibody assay (units/volume)Ordered By: Deisy Villar on 01-07-2024 Thyroglobulin Ab Qn [IU]/mL 0.0-0.9 [facility] Comment on above: Thyroglobulin Antibo dy measured by SleepOutMethodologyPerformed at: [employer] [place], [place] [id number] Director: Baudilio Leyva PhD, Phone: [phone] Serum or plasma thyroperoxid ase antibody assay (units/volume)Ordered By: Deisy Villar on 01-07-2024 TPO Ab Qn [IU]/mL 0-34 [facility] Comment on above: Performed at: [employer] [place], [place] [id number] Director: Baudilio Leyva PhD, Phone: [phone] Sex Hormone Binding Globulin on 01-07-2024 Sex Hormone Binding Globulin 95.4 Normal 24.6-122.0 [facility] Comment on above: Result Comment: Perf ormed at: CB - [address] [id number] On Site [employer] Technician: Baudilio Leyva PhD, Phone: [phone] Performed By: #### Adria NATHAN, LC T4, [id number], SEROTON, TEST F + T, T3R, THYGLOB AB, ESTRADIOL, TPO, SHBG, ESTRONE, INSULIN, PROG #### [facility] , #### T4F, TRISTEN, TSH3, A1C WTH eA, FILIBERTO, GLU, T3F #### [facility] [address] Testosterone Free and TotalO rdered By: Deisy Villar on 01-07-2024 Testosterone [Mass/Vol] 16 ng/dL Normal 8-60 [facility] Comment on above: Performed By: #### Adria NATHAN, LC T4, [id number], SEROTON, TEST F + T, T3R, THYGLOB AB, ESTRADIOL, TPO, SHBG, ESTRONE, INSULIN, PROG #### [facility] , #### T4F, TRISTEN, TSH3, A1C WTH eA, FILIBERTO, GLU, T3F #### [facility] [address] Testosterone Free and Totalo n 01-07-2024 Testosterone,Free 0.3 pg/mL Normal 0.0-4.2 [facility] Comment on above: Result Comment: Perf ormed at: [facility] [id number] [employer] Site [employer] Technician: Baudilio Leyva PhD, Phone: [phone] Performed at: [facility] [address] [id number] On Site [employer] Technician: Quinton Wolf MD, Phone: [phone] Performed By: #### Adria NATHAN, LC T4, [id number], SEROTON, TEST F + T, T3R, THYGLOB AB, ESTRADIOL, TPO, SHBG, ESTRONE, INSULIN, PROG #### [facility] , #### T4F, TRISTEN, TSH3, A1C WTH eA, FILIBERTO, GLU, T3F #### [address] Thyroid Peroxidase Antibodie son 01-07-2024 Thyroid Peroxidase Antibodies <9 Normal 0-34 [facility] Comment on above: Result Comment: Perf ormed at: - [facility] [address] [id number] [employer] Site [employer] Technician: Baudilio Leyva PhD, Phone: [phone] Performed By: #### D HEAS, LC T4, [id number], SEROTON, TEST F + T, T3R, THYGLOB AB, ESTRADIOL, TPO, SHBG, ESTRONE, INSULIN, PROG #### [facility] , #### T4F, TRISTEN, TSH3, A1C WTH eA, FILIBERTO, GLU, T3F #### [address] Thyrotropin [Units/volume] i n Serum or PlasmaOrdered By: Deisy Villar on 01-07-2024 TSH Qn 1.80 m[IU]/L Normal 0.45-5.33 [facility] Comment on above: Performed By: #### D HEAS, LC T4, [id number], SEROTON, TEST F + T, T3R, THYGLOB AB, ESTRADIOL, TPO, SHBG, ESTRONE, INSULIN, PROG #### [facility] , #### T4F, TRISTEN, TSH3, A1C WTH eA, FILIBERTO, GLU, T3F #### The [facility] [address] [place] [address] Thyroxine (T4) free [Mass/vo lume] in Serum or PlasmaOrdered By: Deisy Villar on 01-07-2024 Free T4 [Mass/Vol] 0.88 ng/dL Normal 0.61-1.12 [facility] Comment on above: Performed By: #### D HEAS, LC T4, [id number], SEROTON, TEST F + T, T3R, THYGLOB AB, ESTRADIOL, TPO, SHBG, ESTRONE, INSULIN, PROG #### [facility] , #### T4F, TRISTEN, TSH3, A1C WTH eA, FILIBERTO, GLU, T3F #### [place] [id number] [facility] Triiodothyronine (T3) Freeon 01-07-2024 Triiodothyronine (T3) Free 3.90 pg/mL Normal 2.50-3.90 [facility] Comment on above: Result Comment: PERF ORMED BY: [place] [address] PATHOLOGIST GYN JOSE GOEL M.D. Performed By: #### D VENITA, LC T4, [id number], SEROTON, TEST F + T, T3R, THYGLOB AB, ESTRADIOL, TPO, SHBG, ESTRONE, INSULIN, PROG #### [facility] , #### T4F, TRISTEN, TSH3, A1C WTH eA, FILIBERTO, GLU, T3F #### [address] Triiodothyronine (T3) Free [ Mass/volume] in Serum or PlasmaOrdered By: Deisy Villar on 01-07-2024 Free T3 [Mass/Vol] 3.90 pg/mL 2.50-3.90 [facility] Triiodothyronine (T3) Revers lonnie 01-07-2024 Triiodothyronine (T3) Reverse 18.9 ng/dL Normal 9.2-24.1 [facility] Comment on above: Result Comment: This test was developed and its performance characteristics determined by [facility]. It has not been cleared or approved by the Food and Drug Administration. Performed at: [address] [id number] [employer] Technician: Quinton Wolf MD, Phone: [phone] Performed By: #### D HEAS, LC T4, [id number], SEROTON, TEST F + T, T3R, THYGLOB AB, ESTRADIOL, TPO, SHBG, ESTRONE, INSULIN, PROG #### [facility] , #### T4F, TRISTEN, TSH3, A1C WTH eA, FILIBERTO, GLU, T3F #### [address] [place] [address] [facility] Alanine aminotransferase [En zymatic activity/volume] in Serum or PlasmaOrdered By: Delano Francis on 09-17-2023 ALT [Catalytic activity/Vol] 20 U/L 7-52 [facility] Albumin [Mass/volume] in Ser um or Plasma by Bromocresol green (BCG) dye binding methoOrdered By: Delano Francis on 09-17-2023 Albumin BCG dye [Mass/Vol] 4.3 g/dL 3.5-5.7 [facility] Alkaline phosphatase [Enzyma tic activity/volume] in Serum or PlasmaOrdered By: Delano Francis on 09-17-2023 ALP [Catalytic activity/Vol] 62 U/L 34-104 [facility] Aspartate aminotransferase [ Enzymatic activity/volume] in Serum or PlasmaOrdered By: Delano Francis on 09-17-2023 AST [Catalytic activity/Vol] 22 U/L 13-39 [facility] Basophils Auto (Bld) [#/Vol] Ordered By: Delano Francis on 09-17-2023 Basophils (Bld) [#/Vol] 0.0 10*3/uL 0.0-0.2 [facility] Basophils/100 WBC Auto (Bld) Ordered By: Delano Francis on 09-17-2023 Basophils/100 WBC (Bld) 0.4 % . [facility] Bilirubin.total [Mass/volume ] in Serum or PlasmaOrdered By: Delano Francis on 09-17-2023 Bilirubin [Mass/Vol] 0.7 mg/dL 0.3-1.0 [facility] Calcium [Mass/volume] in Ser um or PlasmaOrdered By: Delano Francis on 09-17-2023 Calcium [Mass/Vol] 9.4 mg/dL 8.6-10.3 [facility] Carbon dioxide, total [Moles /volume] in Serum or PlasmaOrdered By: Delano Francis on 09-17-2023 CO2 [Moles/Vol] 26.2 mmol/L 21.0-31.0 [facility] Chloride [Moles/volume] in S stevo or PlasmaOrdered By: Delano Francis on 09-17-2023 Chloride [Moles/Vol] 102 mmol/L 98-107 [facility] Cholesterol [Mass/volume] in Serum or PlasmaOrdered By: Delano Francis on 09-17-2023 Cholesterol [Mass/Vol] 214 mg/dL 140-200 [facility] Comment on above: Chol less than 200 m g/dl low riskChol 201-239 mg/dl borderline riskChol 240 mg/dl and greater high risk Cholesterol in LDL Calc [Mas s/Vol]Ordered By: Delano Francis on 09-17-2023 Cholesterol in LDL [Mass/Vol] 161 mg/dL 0-100 [facility] Comment on above: LDL ATP III CLASSIFI CATIONLDL less than 100 mg/dL OptimalLDL 100-129 mg/dL Near or above optimalLDL 130-159 mg/dL Borderline highLDL 160-189 mg/dL HighLDL greater than 189 mg/dL Very high Cholesterol in VLDL Calc [Ma ss/Vol]Ordered By: Delano Francis on 09-17-2023 Cholesterol in VLDL [Mass/Vol] 9 mg/dL [facility] Creatinine [Mass/volume] in Serum or PlasmaOrdered By: Delano Francis on 09-17-2023 Creatinine [Mass/Vol] 0.79 mg/dL 0.60-1.20 [facility] Eosinophils Auto (Bld) [#/Vo l]Ordered By: Delnao Francis on 09-17-2023 Eosinophils (Bld) [#/Vol] 0.1 10*3/uL 0.0-0.45 [facility] Eosinophils/100 WBC Auto (Bl d)Ordered By: Delano Francis on 09-17-2023 Eosinophils/100 WBC (Bld) 0.9 % . [facility] Erythrocyte distribution wid th Auto (RBC) [Ratio]Ordered By: Delano Francis on 09-17-2023 Erythrocyte distribution width (RBC) [Ratio] 12.4 % 11.9-15.3 [facility] Globulin Calc (S) [Mass/Vol] Ordered By: Delano Francis on 09-17-2023 Globulin (S) [Mass/Vol] 2.5 g/dL [facility] Glucose [Mass/volume] in Ser um or PlasmaOrdered By: Delano Francis on 09-17-2023 Glucose [Mass/Vol] 75 mg/dL 70-100 [facility] Hematocrit Auto (Bld) [Volum e fraction]Ordered By: Delano Francis on 09-17-2023 Hematocrit (Bld) [Volume fraction] 34.2 % 34.0-46.4 [facility] Hemoglobin [Mass/volume] in BloodOrdered By: Delano Francis on 09-17-2023 Hemoglobin (Bld) [Mass/Vol] 11.8 g/dL 11.8-15.4 [facility] Leukocytes [#/volume] correc calvin for nucleated erythrocytes in Blood by Automated counOrdered By: Delano Francis on 09-17-2023 WBC corrected for nucl RBC Auto (Bld) [#/Vol] 5.9 10*3/uL 3.8-11.6 [facility] Lymphocytes Auto (Bld) [#/Vo l]Ordered By: Delano Francis on 09-17-2023 Lymphocytes (Bld) [#/Vol] 1.8 10*3/uL 1.00-4.8 [facility] Lymphocytes/100 WBC Auto (Bl d)Ordered By: Delano Francis on 09-17-2023 Lymphocytes/100 WBC (Bld) 30.5 % . [facility] MCH Auto (RBC) [Entitic mass ]Ordered By: Delano Francis on 09-17-2023 MCH (RBC) [Entitic mass] 31.8 pg 24.7-34.3 [facility] MCHC Auto (RBC) [Mass/Vol]Or dered By: Delano Francis on 09-17-2023 MCHC (RBC) [Mass/Vol] 34.4 g/dL 32.0-35.0 [facility] MCV Auto (RBC) [Entitic vol] Ordered By: Delano Francis on 09-17-2023 MCV (RBC) [Entitic vol] 92.5 fL 80-100 [facility] Monocytes Auto (Bld) [#/Vol] Ordered By: Delano Francis on 09-17-2023 Monocytes (Bld) [#/Vol] 0.5 10*3/uL 0.0-0.8 [facility] Monocytes/100 WBC Auto (Bld) Ordered By: Delano Francis on 09-17-2023 Monocytes/100 WBC (Bld) 9.2 % . [facility] Neutrophils Auto (Bld) [#/Vo l]Ordered By: Delano Francis on 09-17-2023 Neutrophils (Bld) [#/Vol] 3.5 10*3/uL 1.8-7.7 [facility] Neutrophils/100 WBC Auto (Bl d)Ordered By: Delano Francis on 09-17-2023 Neutrophils/100 WBC (Bld) 59.0 % . [facility] No Panel InformationOrdered By: Delano Francis on 09-17-2023 Estimated GFR (CKD-EPI) > 60.0 mL/Min [facility] Creatinine Clearance (Chem N/A [facility] Nucleated erythrocytes [Pres ence] in Blood by Automated countOrdered By: Delano Francis on 09-17-2023 Nucleated RBC Auto Ql (Bld) 0.2 /100{WBC} 0-0.5 [facility] Platelet mean volume Auto (B ld) [Entitic vol]Ordered By: Delano Francis on 09-17-2023 Platelet mean volume (Bld) [Entitic vol] 8.1 fL 6.3-10.7 [facility] Platelets Auto (Bld) [#/Vol] Ordered By: Delano Francis on 09-17-2023 Platelets (Bld) [#/Vol] 250 10*3/uL 150-450 [facility] Potassium [Moles/volume] in Serum or PlasmaOrdered By: Delano Francis on 09-17-2023 Potassium [Moles/Vol] 4.0 mmol/L 3.5-5.1 [facility] Protein [Mass/volume] in Ser um or PlasmaOrdered By: Delano Francis on 09-17-2023 Protein [Mass/Vol] 6.8 g/dL 6.4-8.9 [facility] RBC Auto (Bld) [#/Vol]Ordere d By: Delano Francis on 09-17-2023 RBC (Bld) [#/Vol] 3.70 10*6/uL 3.60-5.00 [facility] Serum or plasma albumin/glob ulin mass ratioOrdered By: Delano Francis on 09-17-2023 Albumin/Globulin [Mass ratio] 1.7 {ratio} [facility] Serum or plasma anion gap de terminationOrdered By: Delano Francis on 09-17-2023 Anion gap [Moles/Vol] 10.8 mmol/L 6.0-15.0 [facility] Serum or plasma high density lipoprotein (HDL) cholesterol measurementOrdered By: Delano Francis on 09-17-2023 Cholesterol in HDL [Mass/Vol] 43 mg/dL 23- [facility] Comment on above: HDL CHOL ATP-III CLA SSIFICATION Cardiovascular RiskHDL > or equal to 60 mg/dL LOWHDL < 40 mg/dL HIGH Serum or plasma total choles terol/high density lipoprotein (HDL) cholesterol mass ratOrdered By: Delano Francis on 09-17-2023 Cholesterol.total/Alivia sterol in HDL [Mass ratio] 5.0 {ratio} <5.0 [facility] Sodium [Moles/volume] in Ser um or PlasmaOrdered By: Delano Francis on 09-17-2023 Sodium [Moles/Vol] 135 mmol/L 136-145 [facility] Thyrotropin [Units/volume] i n Serum or PlasmaOrdered By: Delano Francis on 09-17-2023 TSH Qn 1.04 m[IU]/L 0.45-5.33 [facility] Triglyceride [Mass/volume] i n Serum or PlasmaOrdered By: Delano Francis on 09-17-2023 Triglyceride [Mass/Vol] 48 mg/dL 0-149 [facility] Comment on above: TRIG ATP III CLASSIF ICATIONTRIG less than 150 mg/dL NormalTRIG 150-199 mg/dL Borderline highTRIG 200-500 mg/dL High TRIG greater than 500 mg/dL Very highStandard traceable to the Center for Disease Conrtrol and Prevention (CDC) test method. Urea nitrogen [Mass/volume] in Serum or PlasmaOrdered By: Delano Francis on 09-17-2023 Urea nitrogen [Mass/Vol] 7 mg/dL 7- [facility] WBC Auto (Bld) [#/Vol]Ordere d By: Delano Francis on 09-17-2023 WBC (Bld) [#/Vol] 5.9 10*3/uL 3.8-11.6 [facility] Mononucleosis Test, [place] 1 Heterophile Ab LA Ql (S) Negative [facility] Other Quick Strepon 09-26-2022 S. pyogenes Org specific cx Ql (Throat) Negative [employer] [facility] [employer] Other Quick Strep [facility] Other SARS-CoV-2 (COVID-19) RNA NA A+probe Ql (Resp)on 09-26-2022 SARS-CoV-2 (COVID-19) RNA ROB+probe Ql (Unsp spec) Negative [facility] Other PAP ACOG PANEL 2: 30 to 65on 09-01-2022 . . Normal [facility] Comment on above: Result Comment: Perf ormed at: WB Performed By: #### [id number] #### [facility] [address] [place] [address] Dr. Zonia Zahng Age Gdln ACOG Testing 30-65 Normal [facility] Comment on above: Performed By: #### [id number] #### [facility] [address] [address] [address] Zonia Zhang DIAGNOSIS: Comment Normal [facility] Comment on above: Result Comment: NEGA TIVE FOR INTRAEPITHELIAL LESION OR MALIGNANCY. Performed at: WB Performed By: #### [id number] #### [facility] [address] [address] [address] Zonia Zhang HPV Aptima Negative Normal Negative [facility] Comment on above: Result Comment: This nucleic acid amplification test detects fourteen high-risk HPV types (16,18,31,33,35,39,45,51,52,56,58,59,66,68) without differentiation. Performed at: =G Performed By: #### [id number] #### [facility] [address] [address] [address] Zonia Zhang Methodology: Comment Normal [facility] Comment on above: Result Comment: This liquid based ThinPrep(R) pap test was screened with the use of an image guided system. Performed at: WB Performed By: #### [id number] #### [facility] [address] [place] [address] Dr. Zonia Zhang Note: Comment Normal [facility] Comment on above: Result Comment: The Pap smear is a screening test designed to aid in the detection of premalignant and malignant conditions of the uterine cervix. It is not a diagnostic procedure and should not be used as the sole means of detecting cervical cancer. Both false-positive and false-negative reports do occur. . Performed at: WB Performed By: #### [id number] #### [facility] [address] [place] [address] Dr. Zonia Zhang Performed by: Comment Normal [facility] Comment on above: Result Comment: Negin Tomas, Ink Technician (ASCP) Performed at: WB Performed By: #### [id number] #### [facility] [address] [place] [address] Dr. Zonia Zhang Specimen adequacy: Comment Normal [facility] Comment on above: Result Comment: Sati sfactory for evaluation. Endocervical and/or squamous metaplastic cells (endocervical component) are present. Performed at: WB Performed By: #### [id number] #### [facility] [address] [place] [address] Dr. Zonia Zhang Basophils Auto (Bld) [#/Vol] Ordered By: Delano Fracnis on 08-07-2022 Basophils (Bld) [#/Vol] 0.0 10*3/uL 0.0-0.2 [facility] Basophils/100 WBC Auto (Bld) Ordered By: Delano Francis on 08-07-2022 Basophils/100 WBC (Bld) 0.5 % . [facility] Blood hemoglobin measurement (mass/volume)Ordered By: Delano Francis on 08-07-2022 Hemoglobin (Bld) [Mass/Vol] 12.7 g/dL 11.8-15.4 [facility] Blood leukocytes automated c ount (number/volume)Ordered By: Delano Francis on 08-07-2022 WBC (Bld) [#/Vol] 5.0 10*3/uL 4.5-11.0 [facility] Body fluid albumin measureme nt (mass/volume)Ordered By: Delano Francis on 08-07-2022 Albumin (Body fld) [Mass/Vol] 4.1 g/dL 3.2-5.5 [facility] Cholesterol [Mass/volume] in Serum or PlasmaOrdered By: Delano Francis on 08-07-2022 Cholesterol [Mass/Vol] 253 mg/dL 140-200 [facility] Comment on above: Chol less than 200 m g/dl low risk Chol 201-239 mg/dl borderline risk Chol 240 mg/dl and greater high risk Chol less than 200 m g/dl low riskChol 201-239 mg/dl borderline riskChol 240 mg/dl and greater high risk Cholesterol in LDL Calc [Mas s/Vol]Ordered By: Delano Francis on 08-07-2022 Cholesterol in LDL [Mass/Vol] 181 mg/dL 0-100 [facility] Comment on above: LDL ATP III [...] 08-07-2022 Cholesterol in VLDL [Mass/Vol] 12 mg/dL [facility] Creatinine and Glomerular fi ltration rate.predicted panel (S/P/Bld)Ordered By: Delano Francis on 08-07-2022 Creatinine [Mass/Vol] 0.76 mg/dL 0.44-1.03 [facility] Eosinophils Auto (Bld) [#/Vo l]Ordered By: Delano Francis on 08-07-2022 Eosinophils (Bld) [#/Vol] 0.1 10*3/uL 0.0-0.45 [facility] Eosinophils/100 WBC Auto (Bl d)Ordered By: Delano Francis on 08-07-2022 Eosinophils/100 WBC (Bld) 1.6 % . [facility] Erythrocyte distribution wid th Auto (RBC) [Ratio]Ordered By: Delano Francis on 08-07-2022 Erythrocyte distribution width (RBC) [Ratio] 12.6 % 11.9-15.3 [facility] Estimated glomerular filtrat ion rate (GFR) non- AmericanOrdered By: Delano Francis on 08-07-2022 GFR/1.73 sq M.predicted among non-blacks MDRD (S/P/Bld) [Vol rate/Area] > 60 mL/Min [facility] Globulin Calc (S) [Mass/Vol] Ordered By: Delano Francis on 08-07-2022 Globulin (S) [Mass/Vol] 2.3 g/dL [facility] Hematocrit Auto (Bld) [Volum e fraction]Ordered By: Delano Francis on 08-07-2022 Hematocrit (Bld) [Volume fraction] 37.5 % 34.0-46.4 [facility] - Chemistry and C hemistry - challengeOrdered By: Delano Francis on 08-07-2022 Glucose [Mass/Vol] 88 mg/dL 70-100 [facility] - Hematology and Cell countsOrdered By: Delano Francis on 08-07-2022 Nucleated RBC/100 WBC (Bld) [Ratio] 0.1 % 0-0.5 [facility] Lymphocytes Auto (Bld) [#/Vo l]Ordered By: Delano Francis on 08-07-2022 Lymphocytes (Bld) [#/Vol] 1.4 10*3/uL 1.00-4.8 [facility] Lymphocytes/100 WBC Auto (Bl d)Ordered By: Delano Francis on 08-07-2022 Lymphocytes/100 WBC (Bld) 28.1 % . [facility] MCH Auto (RBC) [Entitic mass ]Ordered By: Delano Francis on 08-07-2022 MCH (RBC) [Entitic mass] 31.8 pg 24.7-34.3 [facility] MCHC Auto (RBC) [Mass/Vol]Or dered By: Delano Francis on 08-07-2022 MCHC (RBC) [Mass/Vol] 33.8 g/dL 32.0-35.0 [facility] MCV Auto (RBC) [Entitic vol] Ordered By: Delano Francis on 08-07-2022 MCV (RBC) [Entitic vol] 94.3 fL 80-100 [facility] Monocyte %Ordered By: Delano Francis on 08-07-2022 Monocyte % 60 mg/dL 35-149 [facility] Comment on above: TRIG ATP III [...] 08-07-2022 Monocytes (Bld) [#/Vol] 0.5 10*3/uL 0.0-0.8 [facility] Monocytes/100 WBC Auto (Bld) Ordered By: Delano Francis on 08-07-2022 Monocytes/100 WBC (Bld) 10.1 % . [facility] Neutrophils Auto (Bld) [#/Vo l]Ordered By: Delano Francis on 08-07-2022 Neutrophils (Bld) [#/Vol] 3.0 10*3/uL 1.8-7.7 [facility] Neutrophils/100 WBC Auto (Bl d)Ordered By: Delano Francis on 08-07-2022 Neutrophils/100 WBC (Bld) 59.7 % . [facility] No Panel InformationOrdered By: Delano Francis on 08-07-2022 Estimated GFR () > 60 mL/Min [facility] Comment on above: GFR estimated refere nce range: According to KDOQI guidelines, <60 ml/min/1.73m2 is sufficient to diagnose a patient with chronic kidney disease. Nicotine Metabolite Negative Cutoff=25 [facility] Comment on above: Performed at: BN - [facility] [address] [id number] Director: Quinton Wolf MD, Phone: [phone] Pharmacy Creatinine Clearance (Chem N/A [facility] Platelet mean volume Auto (B ld) [Entitic vol]Ordered By: Delano Francis on 08-07-2022 Platelet mean volume (Bld) [Entitic vol] 7.8 fL 6.3-10.7 [facility] Platelets Auto (Bld) [#/Vol] Ordered By: Delano Francis on 08-07-2022 Platelets (Bld) [#/Vol] 275 10*3/uL 150-450 [facility] Protein [Mass/volume] in Ser um or PlasmaOrdered By: Delano Francis on 08-07-2022 Protein [Mass/Vol] 6.4 g/dL 6.1-7.9 [facility] RBC Auto (Bld) [#/Vol]Ordere d By: Delano Francis on 08-07-2022 RBC (Bld) [#/Vol] 3.97 10*6/uL 3.60-5.00 [facility] Serum or plasma alanine troy otransferase measurement without P-5'-P (enzymatic activiOrdered By: Delano Francis on 08-07-2022 ALT No additional P-5'-P [Catalytic activity/Vol] 13 U/L 10-60 [facility] Serum or plasma albumin/glob ulin mass ratioOrdered By: Delano Francis on 08-07-2022 Albumin/Globulin [Mass ratio] 1.8 {ratio} [facility] Serum or plasma alkaline nova sphatase measurement (enzymatic activity/volume)Ordered By: Delano Francis on 08-07-2022 ALP [Catalytic activity/Vol] 52 U/L 32-92 [facility] Serum or plasma anion gap de terminationOrdered By: Delano Francis on 08-07-2022 Anion gap [Moles/Vol] 11.7 mmol/L 6.0-15.0 [facility] Serum or plasma aspartate am inotransferase measurement (enzymatic activity/volume)Ordered By: Delano Francis on 08-07-2022 AST [Catalytic activity/Vol] 15 U/L 10-42 [facility] Serum or plasma calcium kevin urement (mass/volume)Ordered By: Delano Francis on 08-07-2022 Calcium [Mass/Vol] 9.8 mg/dL 8.2-10.2 [facility] Serum or plasma chloride ra surement (moles/volume)Ordered By: Delano Francis on 08-07-2022 Chloride [Moles/Vol] 101 mmol/L 95-114 [facility] Serum or plasma high density lipoprotein (HDL) cholesterol measurementOrdered By: Delano Francis on 08-07-2022 Cholesterol in HDL [Mass/Vol] 60 mg/dL 35-85 [facility] Comment on above: HDL CHOL ATP-III CLA SSIFICATION Cardiovascular Risk HDL > or equal to 60 mg/dL LOW HDL < 40 mg/dL HIGH HDL CHOL ATP-III CLA SSIFICATION Cardiovascular RiskHDL > or equal to 60 mg/dL LOWHDL < 40 mg/dL HIGH Serum or plasma potassium me asurement (moles/volume)Ordered By: Delano Francis on 08-07-2022 Potassium [Moles/Vol] 4.4 mmol/L 3.5-5.1 [facility] Serum or plasma sodium measu rement (moles/volume)Ordered By: Delano Francis on 08-07-2022 Sodium [Moles/Vol] 136 mmol/L 136-146 [facility] Serum or plasma total biliru bin measurement (mass/volume)Ordered By: Delano Francis on 08-07-2022 Bilirubin [Mass/Vol] 1.0 mg/dL 0.3-1.2 [facility] Serum or plasma total carbon dioxide measurement (moles/volume)Ordered By: Delano Francis on 08-07-2022 CO2 [Moles/Vol] 27.7 mmol/L 22.0-30.0 [facility] Serum or plasma total choles terol/high density lipoprotein (HDL) cholesterol mass ratOrdered By: Delano Francis on 08-07-2022 Cholesterol.total/Alivia sterol in HDL [Mass ratio] 4.2 {ratio} <5.0 [facility] Serum or plasma urea nitroge n measurement (mass/volume)Ordered By: Delano Francis on 08-07-2022 Urea nitrogen [Mass/Vol] 9 mg/dL 9- [facility] TSH DL <= 0.005 mIU/L QnOrde red By: Delano Francis on 08-07-2022 TSH Qn 1.43 m[IU]/L 0.45-5.33 [facility] T3, TOTAL (TRIIODOTHYRONINE) on 06-07-2022 T3, TOTAL 88 ng/dL Normal 71-180 [facility] Comment on above: Performed By: #### T 3TOTAL #### [facility] [address] [place] [address] Dr. Zonia Zhang FREE T4on 06-06-2022 Free T4 [Mass/Vol] 0.94 ng/dL Normal 0.76-1.46 [facility] Comment on above: Performed By: #### F T4 #### [facility] [address] [address] [address] Zonia Zhang TSHon 06-06-2022 TSH 1.364 uIU/mL Normal 0.358-3.74 0 [facility] Comment on above: Performed By: #### T SH #### [facility] [address] [place] [address] Dr. Zonia Zhang COVID Quick Testingon 2021 Result Positive [facility] Other Quick Fluon 12-27-2021 FLUAV Ab CF (S) [Titer] Negative [facility] [employer] Other FLUBV Ab CF (S) [Titer] Negative [facility] [employer] Other Vital Signs Date Time Vital Sign Value Performing Clinician Facility 08-07-2025 15:33-0400 Body mass index (BMI) [Ratio] 36.34 kg/m2 Ángel Sita DO Work Phone: [facility] 08-07-2025 15:33-0400 Body weight 105.23 kg Ángel Sita DO Work Phone: [facility] 08-07-2025 15:33-0400 Diastolic blood pressure 80 mm[Hg] Ángel Sita DO Work Phone: [facility] 08-07-2025 15:33-0400 Systolic blood pressure 130 mm[Hg] Ángel Sita DO Work Phone: [facility] 08-03-2025 09:28-0400 Body mass index (BMI) [Ratio] 36.46 kg/m2 Ángel Sita DO Work Phone: [facility] 08-03-2025 09:28-0400 Body weight 105.6 kg Ángel Sita DO Work Phone: [facility] 08-03-2025 09:28-0400 Diastolic blood pressure 76 mm[Hg] Ángel Sita DO Work Phone: [facility] 08-03-2025 09:28-0400 Systolic blood pressure 120 mm[Hg] Ángel Sita DO Work Phone: [facility] 07-24-2025 11:34-0400 Body mass index (BMI) [Ratio] 36.57 kg/m2 Ángel Sita DO Work Phone: [facility] 07-24-2025 11:34-0400 Body weight 105.92 kg Ángel Sita DO Work Phone: [facility] 07-24-2025 11:34-0400 Diastolic blood pressure 74 mm[Hg] Ángel Sita DO Work Phone: [facility] 07-24-2025 11:34-0400 Systolic blood pressure 118 mm[Hg] Ángel Sita DO Work Phone: [facility] 07-17-2025 14:59-0400 Body mass index (BMI) [Ratio] 36.77 kg/m2 Ángel Sita DO Work Phone: [facility] 07-17-2025 14:59-0400 Body weight 106.5 kg Ángel Sita DO Work Phone: [facility] 07-17-2025 14:59-0400 Diastolic blood pressure 70 mm[Hg] Ángel Sita DO Work Phone: [facility] 07-17-2025 14:59-0400 Systolic blood pressure 118 mm[Hg] Ángel Sita DO Work Phone: [facility] 07-10-2025 13:59-0400 Body mass index (BMI) [Ratio] 36.41 kg/m2 Ángel Sita DO Work Phone: [facility] 07-10-2025 13:59-0400 Body weight 105.46 kg Ángel Sita DO Work Phone: [facility] 07-10-2025 13:59-0400 Diastolic blood pressure 74 mm[Hg] Ángel Sita DO Work Phone: [facility] 07-10-2025 13:59-0400 Systolic blood pressure 126 mm[Hg] Ángel Sita DO Work Phone: [facility] 06-26-2025 13:08-0400 Body mass index (BMI) [Ratio] 36.2 kg/m2 Ángel Sita DO Work Phone: [facility] 06-26-2025 13:08-0400 Body weight 104.83 kg Ángel Sita DO Work Phone: [facility] 06-26-2025 13:08-0400 Diastolic blood pressure 74 mm[Hg] Ángel Sita DO Work Phone: [facility] 06-26-2025 13:08-0400 Systolic blood pressure 116 mm[Hg] Ángel Sita DO Work Phone: [facility] 06-12-2025 14:21-0400 Body mass index (BMI) [Ratio] 35.73 kg/m2 Ángel Sita DO Work Phone: [facility] 06-12-2025 14:21-0400 Body weight 103.47 kg Ángel Sita DO Work Phone: [facility] 06-12-2025 14:21-0400 Diastolic blood pressure 70 mm[Hg] Ángel Sita DO Work Phone: [facility] 06-12-2025 14:21-0400 Systolic blood pressure 120 mm[Hg] Ángel Sita DO Work Phone: [facility] 05-30-2025 09:10-0400 Body mass index (BMI) [Ratio] 35.52 kg/m2 Ángel Sita DO Work Phone: [facility] 05-30-2025 09:10-0400 Body weight 102.88 kg Ángel Sita DO Work Phone: [facility] 05-30-2025 09:10-0400 Diastolic blood pressure 78 mm[Hg] Ángel Sita DO Work Phone: [facility] 05-30-2025 09:10-0400 Systolic blood pressure 120 mm[Hg] Ángel Sita DO Work Phone: [facility] 05-01-2025 08:36-0400 Body mass index (BMI) [Ratio] 34.43 kg/m2 Deisy MUNOZ Work Phone: [facility] 05-01-2025 08:36-0400 Body weight 99.7 kg Deisy MUNOZ Work Phone: [facility] 05-01-2025 08:36-0400 Diastolic blood pressure 74 mm[Hg] Deisy MUNOZ Work Phone: [facility] 05-01-2025 08:36-0400 Systolic blood pressure 118 mm[Hg] Deisy Villar PA Work Phone: [facility] 03-30-2025 10:28-0400 Body mass index (BMI) [Ratio] 32.89 kg/m2 Ángel Sita DO Work Phone: [facility] 03-30-2025 10:28-0400 Body weight 95.25 kg Ángel Sita DO Work Phone: [facility] 03-30-2025 10:28-0400 Diastolic blood pressure 84 mm[Hg] Ángel Sita DO Work Phone: [facility] 03-30-2025 10:28-0400 Systolic blood pressure 120 mm[Hg] Ángel Sita DO Work Phone: [facility] 03-02-2025 09:58-0400 Body mass index (BMI) [Ratio] 31.76 kg/m2 Deisy Adithya PA Work Phone: [facility] 03-02-2025 09:58-0400 Body weight 91.99 kg Deisy Adithya PA Work Phone: [facility] 03-02-2025 09:58-0400 Diastolic blood pressure 72 mm[Hg] Deisy Adithya PA Work Phone: [facility] 03-02-2025 09:58-0400 Systolic blood pressure 120 mm[Hg] Deisy Adithya PA Work Phone: [facility] 02-02-2025 09:25-0500 Body mass index (BMI) [Ratio] 30.54 kg/m2 Ángel Sita DO Work Phone: [facility] 02-02-2025 09:25-0500 Body weight 88.45 kg Ángel Sita DO Work Phone: [facility] 02-02-2025 09:25-0500 Diastolic blood pressure 70 mm[Hg] Ángel Sita DO Work Phone: [facility] 02-02-2025 09:25-0500 Systolic blood pressure 120 mm[Hg] Ángel Sita DO Work Phone: [facility] 10-18-2024 11:19-0500 Body height 170.18 cm Robles Ball DO Work Phone: [facility] 10-18-2024 11:19-0500 Body mass index (BMI) [Ratio] 29.7 kg/m2 Robles Ball DO Work Phone: [facility] 10-18-2024 11:19-0500 Body weight 86.23 kg Robles Ball DO Work Phone: [facility] 10-18-2024 11:19-0500 Diastolic blood pressure 77 mm[Hg] Robles Ball DO Work Phone: [facility] 10-18-2024 11:19-0500 Heart rate 88 /min Robles Ball DO Work Phone: [facility] 10-18-2024 11:19-0500 Respiratory rate 12 /min Robles Ball DO Work Phone: [facility] 10-18-2024 11:19-0500 Systolic blood pressure 111 mm[Hg] Robles Ball DO Work Phone: [facility] 09-13-2024 14:28-0400 Body mass index (BMI) [Ratio] 28.79 kg/m2 Ángel Sita DO Work Phone: [facility] 09-13-2024 14:28-0400 Body weight 83.37 kg Ángel Sita DO Work Phone: [facility] 09-13-2024 14:28-0400 Diastolic blood pressure 70 mm[Hg] Ángel Sita DO Work Phone: [facility] 09-13-2024 14:28-0400 Systolic blood pressure 120 mm[Hg] Ángel Sita DO Work Phone: [facility] 05-03-2024 14:40-0400 Body height 170.18 cm [facility] 05-03-2024 14:40-0400 Body mass index (BMI) [Ratio] 28.3 kg/m2 [facility] 05-03-2024 14:40-0400 Body weight 82.1 kg [facility] 05-03-2024 14:40-0400 Diastolic blood pressure 82 mm[Hg] [facility] 05-03-2024 14:40-0400 Heart rate 78 /min [facility] 05-03-2024 14:40-0400 SaO2% (BldA) [Mass fraction] 98 % [facility] 05-03-2024 14:40-0400 Systolic blood pressure 122 mm[Hg] [facility] 01-06-2024 14:20-0500 Body height 170.2 cm Deisy MUNOZ Work Phone: [facility] 01-06-2024 14:20-0500 Body mass index (BMI) [Ratio] 28.05 kg/m2 Deisy Villar PA Work Phone: [facility] 01-06-2024 14:20-0500 Body weight 81.25 kg Deisy Villar PA Work Phone: [facility] 01-06-2024 14:20-0500 Diastolic blood pressure 70 mm[Hg] Deisy Villar PA Work Phone: [facility] 01-06-2024 14:20-0500 Systolic blood pressure 120 mm[Hg] Deisy MUNOZ Work Phone: [facility] 10-02-2023 10:00-0400 Body height 170.18 cm Robles Ball Other [facility] Other 10-02-2023 10:00-0400 Body mass index (BMI) [Ratio] 29.38 kg/m2 Robles Ball Other [facility] Other 10-02-2023 10:00-0400 Body weight 85.1 kg Robles Ball Other [facility] Other 10-02-2023 10:00-0400 Diastolic blood pressure 83 mm[Hg] Robles Ball Other [facility] Other 10-02-2023 10:00-0400 Respiratory rate 12 /min Robles Ball Other [facility] Other 10-02-2023 10:00-0400 Systolic blood pressure 131 mm[Hg] Robles Ball Other [facility] Other 01-22-2023 10:30-0500 Body height 170.18 cm Robles Ball Other [facility] Other 01-22-2023 10:30-0500 Body mass index (BMI) [Ratio] 29.91 kg/m2 Robles Ball Other [facility] Other 01-22-2023 10:30-0500 Body weight 86.64 kg Robles Ball Other [facility] Other 01-22-2023 10:30-0500 Diastolic blood pressure 72 mm[Hg] Robles Ball Other [facility] Other 01-22-2023 10:30-0500 Respiratory rate 16 /min Robles Ball Other [facility] Other 01-22-2023 10:30-0500 Systolic blood pressure 122 mm[Hg] Robles Ball Other [facility] Other 09-26-2022 16:10-0400 Body height 170.18 cm Kiya Schaffer Other [facility] Other 09-26-2022 16:10-0400 Body mass index (BMI) [Ratio] 29.29 kg/m2 Kiya Schaffer Other [facility] Other 09-26-2022 16:10-0400 Body temperature 98.8 [degF] Kiya Schaffer Other [facility] Other 09-26-2022 16:10-0400 Body weight 84.82 kg Kiya Schaffer Other [facility] Other 09-26-2022 16:10-0400 Diastolic blood pressure 73 mm[Hg] Kiya Schaffer Other [facility] Other 09-26-2022 16:10-0400 Respiratory rate 18 /min Kiya Schaffer Other [facility] Other 09-26-2022 16:10-0400 SaO2% (BldA) [Mass fraction] 97 % Kiya Schaffer Other [facility] Other 09-26-2022 16:10-0400 Systolic blood pressure 125 mm[Hg] Kiya Schaffer Other [facility] Other 12-27-2021 10:15-0500 Body height 170.18 cm Elsi Leyla Other [facility] Other 12-27-2021 10:15-0500 Body mass index (BMI) [Ratio] 28.19 kg/m2 Elsi Leyla Other [facility] Other 12-27-2021 10:15-0500 Body temperature 100.3 [degF] Elsi Leyla Other [facility] Other 12-27-2021 10:15-0500 Body weight 81.65 kg Elsi Leyla Other [facility] Other 12-27-2021 10:15-0500 Respiratory rate 18 /min Elsi Leyla Other [facility] Other 12-27-2021 10:15-0500 SaO2% (BldA) [Mass fraction] 98 % Elsi Leyla Other [facility] Other Encounters Encounter Date Encounter Type Care Provider Facility Start: 08-08-2025 End: 08-08-2025 Clinisync Result Encounter Ángel Sita DO Work Phone: [facility] Unsolicited Start: 08-08-2025 End: 08-08-2025 Clinisync Result Encounter Ángel Sita DO Work Phone: [facility] Unsolicited Start: 08-07-2025 End: 08-07-2025 flow sheet Ángel Sita DO Work Phone: [facility] Comment on above: Third trimester preg lai ([facility]); 39 weeks gestation of ([facility]) Start: 08-07-2025 End: 08-07-2025 ambulatory ÁNGEL SITA Not Available Start: 08-07-2025 End: 08-07-2025 Bamboo flowsheet Ángel Sita DO Work Phone: [facility] Start: 08-07-2025 End: 08-07-2025 Bamboo flowsheet Ángel Sita DO Work Phone: [facility] Start: 08-07-2025 End: 08-07-2025 Clinisync Result [...] [facility] Start: 08-03-2025 End: 08-03-2025 Bamboo flowsheet Ángel Sita DO Work Phone: [facility] Start: 08-03-2025 End: 08-03-2025 flow sheet Ángel Sita DO Work Phone: [facility] Comment on above: Third trimester preg lai ([facility]); 39 weeks gestation of ([facility]) Start: 08-03-2025 End: 08-03-2025 ambulatory ÁNGEL SITA Not Available Start: 07-29-2025 End: 07-29-2025 Clinisync Result Encounter Ángel Sita DO Work Phone: [facility] Unsolicited Start: 07-29-2025 End: 07-29-2025 Clinisync Result Encounter Ángel Sita DO Work Phone: [facility] Unsolicited Start: 07-24-2025 End: 07-24-2025 Bamboo flowsheet Ángel Sita DO Work Phone: [facility] Start: 07-24-2025 End: 07-24-2025 Bamboo flowsheet Ángel Sita DO Work Phone: [facility] Start: 07-24-2025 End: 07-24-2025 ambulatory ÁNGEL SITA Not Available Start: 07-24-2025 End: 07-24-2025 flow sheet Ángel Sita DO Work Phone: [facility] Comment on above: Third trimester preg lai ([facility]); 37 weeks gestation of ([facility]) Start: 07-22-2025 End: 07-22-2025 Clinisync Result Encounter Ángel Sita DO Work Phone: [facility] Unsolicited Start: 07-22-2025 End: 07-22-2025 Clinisync Result Encounter Ángel Sita DO Work Phone: [facility] Unsolicited Start: 07-17-2025 End: 07-17-2025 flow sheet Ángel Sita DO Work Phone: [facility] Comment on above: 36 weeks gestation o f ([facility]); Third trimester ([facility]); History of miscarriage; Multigravida of advanced maternal age in third trimester ([facility]); Excessive growth affecting management of in third trimester, single or unspecified fetus ([facility]) Start: 07-17-2025 End: 07-17-2025 ambulatory ÁNGEL SITA [...] flowsheet Ángel Sita DO Work Phone: [facility] Start: 07-10-2025 End: 07-10-2025 Bamboo flowsheet Ángel Sita DO Work Phone: [facility] Start: 07-10-2025 End: 07-10-2025 flow sheet Ángel Sita DO Work Phone: [facility] Comment on above: Third trimester preg lai ([facility]); 35 weeks gestation of ([facility]) Start: 07-10-2025 End: 07-10-2025 ambulatory ÁNGEL SITA [...] Comment on above: Third trimester preg lai ([facility]); 33 weeks gestation of ([facility]) Start: 06-26-2025 End: 06-26-2025 ambulatory ÁNGEL SITA [...] Ángel Sita DO Work Phone: [facility] Comment on above: Excessive grow th affecting management of in third trimester, single or unspecified fetus ([facility]) (Primary Dx); 31 weeks gestation of ([facility]); Third trimester ([facility]); History of miscarriage; Multigravida of advanced maternal age in third trimester ([facility]) Start: 06-12-2025 End: 06-12-2025 ambulatory ÁNGEL SITA Not Available Start: 06-12-2025 End: 06-12-2025 Bamboo flowsheet Ángel Sita DO Work Phone: [facility] Start: 06-12-2025 End: 06-12-2025 Bamboo flowsheet Ángel Sita DO Work Phone: [facility] Start: 06-10-2025 End: 06-10-2025 Clinisync Result Encounter Ángel Sita DO Work Phone: [facility] Unsolicited Start: 06-10-2025 End: 06-10-2025 Clinisync Result Encounter Ángel Sita DO Work Phone: [facility] External Department Unsolicited Start: 06-03-2025 End: 06-03-2025 Clinisync Result Encounter Ángel Sita DO Work Phone: [facility] Unsolicited Start: 06-03-2025 End: 06-03-2025 Clinisync Result Encounter Ángel Sita DO Work Phone: [facility] External Department Unsolicited Start: 05-30-2025 End: 05-30-2025 Bamboo flowsheet Ángel Sita DO Work Phone: [facility] Start: 05-30-2025 End: 05-30-2025 Bamboo flowsheet Ángel Sita DO Work Phone: [facility] Start: 05-30-2025 End: 05-30-2025 flow sheet Ángel Sita DO Work Phone: [facility] Comment on above: Third trimester preg lai ([facility]); 29 weeks gestation of ([facility]); History of miscarriage; Multigravida of advanced maternal age in third trimester ([facility]) Start: 05-30-2025 End: 05-30-2025 ambulatory ÁNGEL SITA [...] Start: 03-30-2025 End: 03-30-2025 flow sheet Ángel Buckner DO Work Phone: [facility] Comment [...] Patient encounter procedure Deisy MUNOZ Work Phone: [facility] Start: 03-02-2025 End: 03-02-2025 Periodic [...] External Department Unsolicited Start: 01-05-2025 End: 01-05-2025 Office outpatient visit 5 minutes Sita Nurse [facility] Comment on above: GA: [id number] Start: 01-05-2025 End: 01-05-2025 ambulatory ÁNGEL SITA [...] 10-18-2024 ambulatory Robles Charles DO Work Phone: [facility] Work Phone: Start: 10-18-2024 End: 10-18-2024 Encounter for general adult medical examination without abnormal findings Robles Charles DO Work Phone: [facility] Start: 10-18-2024 End: 10-18-2024 Patient encounter procedure Robles Charles DO Work Phone: [facility] Work Phone: Start: 10-16-2024 Patient encounter status Jermaine min Nela DO Work Phone: [facility] Start: 10-14-2024 Non-patient / Non-visit Benjam in Ball DO Work Phone: [facility] Work Phone: Start: 09-22-2024 End: 09-22-2024 Departed Referred DO Robles Charles Work Phone: [facility] Start: 09-22-2024 End: 09-22-2024 ambulatory DO Robles Cahrles Work Phone: [facility] Work Phone: Start: 09-13-2024 End: [...] preventive med est patient 18-39 yrs Ángel Buckner DO Work Phone: [facility] Comment on above: Well woman exam with routine gynecological exam Start: 09-13-2024 End: 09-13-2024 ambulatory ÁNGEL BUCKNER Not Available Start: 08-29-2024 End: 08-29-2024 ambulatory [facility] Work Phone: Start: 08-29-2024 End: 08-29-2024 Patient encounter procedure [facility] Work Phone: Start: 05-03-2024 End: 05-03-2024 ambulatory [facility] Work Phone: Start: 05-03-2024 End: 05-03-2024 Patient encounter procedure [facility] Work Phone: Start: 2024 End: 2024 ambulatory DO Robles Ball Work Phone: [facility] Work Phone: Start: 2024 End: 2024 Patient encounter procedure DO Robles Ball Work Phone: [facility] Work Phone: Start: 01-07-2024 End: 01-07-2024 Patient encounter procedure DO Robles Ball Work Phone: [facility] [place] Work Phone: Start: 01-07-2024 End: 01-07-2024 ambulatory DO Robles Ball Work Phone: [facility] Work Phone: Start: 01-06-2024 End: 01-06-2024 Office outpatient visit 15 minutes Deisy MUNOZ Work Phone: [facility] Comment on above: Encounter for weight management; Hormone disorder; 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 Start: 10-02-2023 End: 10-02-2023 ambulatory Robles Ball Other [facility] Other Start: 10-02-2023 Encounter for genera l adult medical examination without abnormal findings Robles Charles [facility] Start: 10-02-2023 Periodic preventive med est patient 18-39 yrs Robles Charles [facility] Start: 09-17-2023 End: 09-17-2023 ambulatory MD Liz Conteh Work Phone: [facility] Work Phone: Start: 09-17-2023 End: 09-17-2023 Departed Referred MD Liz Conteh Work Phone: [facility]-Employee Benefit Screening Start: 01-22-2023 End: 01-22-2023 ambulatory Robles Charles Other [facility] Other Start: 01-22-2023 Office outpatient vi sit 15 minutes Robles Charles [facility] Start: 01-12-2023 End: 01-12-2023 ambulatory Robles Charles Other [facility] Other Start: 01-12-2023 Telephone encounter Robles Charles [facility] Start: 12-24-2022 End: 12-24-2022 ambulatory Robles Charles Other [facility] Other Start: 12-24-2022 Office outpatient vi sit 15 minutes Robles Charles [facility] Start: 09-30-2022 End: 09-30-2022 ambulatory Kiya Schaffer Other [facility] Other Start: 09-30-2022 Telephone encounter Kiya Schaffer [facility] [address] Start: 09-26-2022 End: 09-26-2022 Departed Referred MD Liz Conteh Work Phone: [facility] [place] Start: 09-26-2022 End: 09-26-2022 ambulatory MD Liz Conteh Work Phone: [facility] Work Phone: Start: 09-26-2022 Office outpatient vi sit 15 minutes Kiya Schaffer [facility] Start: 09-25-2022 ([facility] C Vac) [facility] Start: 09-25-2022 End: 09-25-2022 ambulatory MD Liz Conteh Work Phone: [facility] Work Phone: Start: 09-25-2022 End: 09-25-2022 Patient encounter procedure MD Liz Conteh Work Phone: [facility]-Covid Vaccine Off Site Start: 08-25-2022 End: 08-25-[address] ÁNGEL BUCKNER Facility:[facility] Start: 08-07-2022 End: 08-07-2022 Departed Referred MD Liz Conteh Work Phone: [facility]Employee Benefit Screening Start: 06-06-2022 End: 06-07-[address] ROBLES CHARLES Facility:[facility] Start: 01-01-2022 End: 01-01-2022 ambulatory Elsi Mayer Other [facility] Other Start: 01-01-2022 Office outpatient vi sit 5 minutes Elsi Leyla [facility] Start: 12-27-2021 End: 12-27-2021 ambulatory Elsi Mayer Other [facility] Other Start: 12-27-2021 Office outpatient vi sit 15 minutes Elsi Leyla [facility] Start: 08-23-2021 ([facility] C Vac) [facility] Co vid Vaccine Sub[facility] Procedures Date Procedure Procedure Detail Performing Clinician Start: 08-08-2025 ALL CBC WITH AUTO DIFF Ángel Buckner DO Work Phone: Start: 08-07-2025 [facility] UA (CLEAN/CATCH) AIR BRUSH ARTIST/MICRO IF IND. Ángel Buckner DO Work Phone: Start: 08-07-2025 Urnls dip [...] 05-11-2025 US OB GROWTH Edson E jackyly AERIAL LINEMAN Work Phone: Start: 04-18-2025 ALL CBC WITH [...] stain Ángel Sita DO Work Phone: Start: 09-13-2024 Cytp cerv/vag auto t hin layer prep mnl screen Ángel Sita DO Work Phone: Start: 06-19-2020 Microscopic observat ion [Identifier] in Cervix by Cyto stain Deisy MUNOZ Work Phone: Plan of Treatment Date Care Activity Detail Author Start: 09-13-2029 Screening for malignant neoplasm of cervix [facility] Start: 03-02-2028 Screening for malignant neoplasm of cervix Pap Smear [facility] Start: 09-19-2025 End: 09-19-2025 Patient encounter procedure [facility] Start: 08-07-2025 End: 08-07-2025 Patient encounter procedure [facility] Comment on above: Arrived Start: 08-03-2025 End: 08-03-2025 Patient encounter procedure [facility] Comment on above: Arrived Start: 07-31-2025 Influenza vaccination [facility] Start: 07-24-2025 End: 07-24-2025 Patient encounter procedure 07/24/2025 11:20 AM EDT Routine [facility] [address] [place] [id number] Ángel Buckner, DO [address] [place] [address] [facility] Start: 07-17-2025 End: 07-17-2025 Patient encounter procedure HERBIE Lorenzo Comment on above: Arrived Start: 07-10-2025 End: 07-10-2026 CULTURE, GROUP B STREP WITH SUSCEPTIBLITY CULTURE, GROUP B STREP WITH SUSCEPTIBLITY Lab Routine Third trimester ([facility]) Expected: 07/10/2025, Expires: 07/10/2026 [facility] Work [...] in third trimester, single or unspecified fetus ([facility]) Expected: 06/12/2025, Expires: 10/13/2025 [facility] Work Phone: Comment on above: Expected: 06/12/2025, Expires: Start: 05-30-2025 End: 11-30-2025 US biophysical profile w non stress test US biophysical profile w non stress test Imaging Routine History of miscarriage Multigravida of advanced maternal age in third trimester ([facility]) Expected: 05/30/2025 (Approximate), Expires: 11/30/2025 [facility] [...] Procedure [facility] [address] [place] [address] [facility] Start: 04-03-2025 End: 04-03-2025 Patient encounter procedure 04/03/2025 9:50 AM EDT Routine [facility] [address] [place] [address] Ángel Buckner, DO [address], [place] [address] [facility] Start: 04-03-2025 End: 04-03-2025 Professional / ancillary services management 04/03/2025 8:00 AM EDT Ancillary Procedure [facility] [address] [place] [address] [facility] Start: 03-30-2025 End: 03-30-2026 CBC panel - Blood by Automated count CBC Lab Routine Second trimester Diabetes mellitus screening Expected: 03/30/2025 (Approximate), Expires: 03/30/2026 [facility] Work Phone: Comment on above: [...] for anatomic survey Expected: 03/02/2025, Expires: 03/02/2026 [facility] Comment on above: Expected: 03/02/2025, Expires: Start: 03-02-2025 End: 03-02-2025 Patient encounter procedure 03/02/2025 9:30 AM EDT Routine [facility] [address] [address] Deisy Villar PA [address] [place] [address] Arrived [facility] Comment on above: Arrived Start: 02-02-2025 End: 02-02-2025 Patient encounter procedure [facility] Comment on above: Arrived Start: 01-05-2025 End: 01-05-2026 ABO/Rh ABO/Rh Lab Routine Missed menses , unspecified gestational age ([facility]) Expected: 01/05/2025 (Approximate), Expires: 01/05/2026 [facility] Comment on above: Expected: 01/05/2025 (Approximate), Expi res: 01/05/2026 Start: 01-05-2025 End: 01-05-2026 Blood type and Indirect antibody screen panel - Blood Type and screen Lab Routine Missed menses , unspecified gestational age ([facility]) Expected: 01/05/2025 (Approximate), Expires: 01/05/2026 [facility] Work Phone: Comment on above: Expected: 01/05/2025 (Approximate), Expi res: 01/05/2026 Start: 01-05-2025 End: 01-05-2026 Drugs of abuse panel - Urine by Screen method Rapid drug screen, urine Lab Routine , unspecified gestational age ([facility]) Encounter for supervision of normal first in first trimester ([facility]) Expected: 01/05/2025 (Approximate), Expires: 01/05/2026 [facility] Comment on above: Expected: 01/05/2025 (Approximate), Expi res: 01/05/2026 Start: 01-05-2025 End: 01-05-2025 ambulatory 01/05/2025 1:30 PM EST Initial [facility] [address] [place] [id number] [facility] Start: 01-05-2025 End: 01-05-2025 Professional / ancillary services management 01/05/2025 1:00 PM EST Ancillary Procedure [facility] [address] [place] [address] [facility] Start: 09-13-2024 End: 09-13-2024 Patient encounter procedure [facility] Comment on above: Arrived Start: 07-31-2024 Influenza vaccination Influenza Vaccine (#1) [facility] Start: 02-03-2024 End: 02-03-2024 Patient encounter procedure 02/03/2024 1:50 PM EST Office Visit [facility] [address] [place] [id number] Deisy Villar PA [address] [place] [address] [facility] Start: 01-07-2024 Dehydroepiandrosterone sulfate level [facility] Start: 01-07-2024 Sex hormone binding globulin measurement [facility] Start: 01-07-2024 T3 reverse measurement [facility] Start: 01-07-2024 Thyroxine measurement [facility] Start: 01-07-2024 [facility] Start: 01-06-2024 End: 01-06-2025 Anti-thyroglobulin antibody Anti-thyroglobulin antibody Lab Routine Hormone disorder Expected: 01/06/2024 (Approximate), Expires: 01/06/2025 [facility] Comment on above: Expected: 01/06/2024 (Approximate), Expi res: 01/06/2025 Start: 01-06-2024 End: 01-06-2025 C-peptide C-peptide Lab Routine Hormone disorder Expected: 01/06/2024 (Approximate), Expires: 01/06/2025 [facility] Comment on above: Expected: 01/06/2024 (Approximate), Expi res: 01/06/2025 Start: 01-06-2024 End: 01-06-2025 Cortisol free Cortisol, free Lab Routine Hormone disorder Expected: 01/06/2024 (Approximate), Expires: 01/06/2025 [facility] Comment on above: Expected: 01/06/2024 [...] Hormone disorder Expected: 01/06/2024 (Approximate), Expires: 01/06/2025 [facility] Comment on above: Expected: 01/06/2024 (Approximate), Expi res: 01/06/2025 Start: 01-06-2024 End: 01-06-2025 Thyroglobulin Thyroglobulin Lab Routine Hormone disorder Expected: 01/06/2024 (Approximate), Expires: 01/06/2025 [facility] Comment on above: Expected: 01/06/2024 (Approximate), Expi res: 01/06/2025 Start: 01-06-2024 End: 01-06-2025 Thyrotropin [Units/volume] in Serum or Plasma [facility] Comment on above: Ordered: 01/06/2024 Expected: 01/06/2024 (Approximate), Expires: 01/06/2025 Start: 09-17-2023 [facility] Start: 08-07-2022 [facility] Work Phone: Bacteria identified in Urine by Culture Urine culture Microbiology Routine Missed menses Ordered: 01/05/2025 [facility] Comment on above: Ordered: 01/05/2025 Calcitriol [Mass/vol ume] in Serum or Plasma [facility] CBC W Auto Different ial panel - Blood CBC and differential Lab Routine Missed menses , unspecified gestational age ([facility]) Ordered: 01/05/2025 [facility] Comment on above: Ordered: 01/05/2025 CHLAMYDIA TRACHOMATI S (GENITO/STI) CHLAMYDIA TRACHOMATIS (GENITO/STI) Lab Routine Exposure to STD Ordered: 03/02/2025 [facility] Comment on above: Ordered: 03/02/2025 Cytology Cervical or vaginal smear or scraping study Pap Smear Pathology and Cytology Routine Well woman exam with routine gynecological exam Ordered: 09/13/2024 [facility] Work Phone: Comment on above: Ordered: 09/13/2024 Cytology Cervical or vaginal smear or scraping study Pap Smear Pathology and Cytology Routine Well woman exam with routine gynecological exam Ordered: 03/02/2025 [facility] Comment on above: Ordered: 03/02/2025 DHEA-sulfate DHEA-sulfate Lab Routine Hormone disorder Ordered: 01/06/2024 [facility] Comment on above: Ordered: 01/06/2024 Estradiol Estradiol Lab Ro utine Hormone disorder Ordered: 01/06/2024 [facility] Work Phone: Comment on above: Ordered: 01/06/2024 Estradiol (E2) [Mass /volume] in Serum or Plasma [facility] Estrone Estrone Lab Rout ine Hormone disorder Ordered: 01/06/2024 [facility] Comment on above: Ordered: 01/06/2024 Estrone (E1) [Mass/v olume] in Serum or Plasma [facility] Ferritin [Mass/volum e] in Serum or Plasma Ferritin Lab Routine Hormone disorder Ordered: 01/06/2024 [facility] Comment on above: Ordered: 01/06/2024 Hemoglobin A1c measurement Hemog lobin A1c Lab Routine Hormone disorder Ordered: 01/06/2024 [facility] Comment on above: Ordered: 01/06/2024 Hemoglobin A1c/Hemoglobin.total in Blood Hemoglobin A1c Lab Routine Missed menses , unspecified gestational age ([facility]) Ordered: 01/05/2025 [facility] Comment on above: Ordered: 01/05/2025 Hepatitis B virus newsome rface Ag [Presence] in Serum or Plasma by Immunoassay Hepatitis B surface antigen Lab Routine Missed menses , unspecified gestational age ([facility]) Ordered: 01/05/2025 [facility] Comment on above: Ordered: 01/05/2025 Hepatitis C virus Ab [Presence] in Serum or Plasma by Immunoassay Hepatitis C antibody Lab Routine Missed menses , unspecified gestational age ([facility]) Ordered: 01/05/2025 [facility] Comment on above: Ordered: 01/05/2025 HIV-1/HIV-2 antigen/ antibody combination immunoassay HIV-1 and HIV-2 antibodies Lab Routine Missed menses , unspecified gestational age ([facility]) Ordered: 01/05/2025 [facility] Comment on above: Ordered: 01/05/2025 Human papilloma viru s DNA [Presence] in Unspecified specimen by Probe with amplification HPV DNA probe, amplified Microbiology Routine Well woman exam with routine gynecological exam Ordered: 09/13/2024 [facility] Comment on above: Ordered: 09/13/2024 Human papilloma viru s DNA [Presence] in Unspecified specimen by Probe with amplification HPV DNA probe, amplified Microbiology Routine Well woman exam with routine gynecological exam Ordered: 03/02/2025 [facility] Comment on above: Ordered: 03/02/2025 Insulin [Units/volum e] in Serum or Plasma [facility] Neisseria gonorrhoea e DNA [Presence] in Unspecified specimen by ROB with probe detection Neisseria gonorrhea DNA probe, direct Lab Routine Exposure to STD Ordered: 03/02/2025 [facility] Comment on above: Ordered: 03/02/2025 Progesterone Progesterone Lab Routine Hormone disorder Ordered: 01/06/2024 [facility] Comment on above: Ordered: 01/06/2024 Progesterone [Mass/v olume] in Serum or Plasma [facility] Reagin Ab [Presence] in Serum by RPR RPR Lab Routine Missed menses , unspecified gestational age ([facility]) Ordered: 01/05/2025 [facility] Comment on above: Ordered: 01/05/2025 Rubella antibody, IgG Rubella an tibody, IgG Lab Routine Missed menses , unspecified gestational age ([facility]) Ordered: 01/05/2025 [facility] Comment on above: Ordered: 01/05/2025 Serotonin [Mass/volu me] in Plasma [facility] Sex hormone binding globulin Sex hormone binding globulin Lab Routine Hormone disorder Ordered: 01/06/2024 [facility] Comment on above: Ordered: 01/06/2024 SURESWAB(R) ADVANCED VAGINITIS PLUS, TMA SURESWAB(R) ADVANCED VAGINITIS PLUS, TMA Pathology and Cytology Routine Vaginal discharge Ordered: 03/02/2025 [facility] Work Phone: Comment on above: Ordered: 03/02/2025 T3, reverse T3, reverse Lab Routine Hormone disorder Ordered: 01/06/2024 [facility] Comment on above: Ordered: 01/06/2024 Testosterone Free [Mass/volume] in Serum or Plasma [facility] TESTOSTERONE, FREE TESTOSTERONE, FREE Lab Routine Hormone disorder Ordered: 01/06/2024 [facility] Comment on above: Ordered: 01/06/2024 Testosterone, free, total Testos terone, free, total Lab Routine Hormone disorder Ordered: 01/06/2024 [facility] Comment on above: Ordered: 01/06/2024 Throat culture Throat Culture [facility] Thyroglobulin Ab [Units/volume] in Serum or Plasma [facility] Thyroid peroxidase antibody Thyr oid peroxidase antibody Lab Routine Hormone disorder Ordered: 01/06/2024 [facility] Comment on above: Ordered: 01/06/2024 Thyroperoxidase Ab [Units/volume] in Serum or Plasma [facility] Thyroxine (T4) free [Mass/volume] in Serum or Plasma T4, free Lab Routine Hormone disorder Ordered: 01/06/2024 [facility] Comment on above: Ordered: 01/06/2024 Triiodothyronine (T3 ) Free [Mass/volume] in Serum or Plasma T3, free Lab Routine Hormone disorder Ordered: 01/06/2024 [facility] Comment on above: Ordered: 01/06/2024 Vitamin D 1,25 dihydroxy Vitamin D 1,25 dihydroxy Lab Routine Hormone disorder Ordered: 01/06/2024 [facility] Comment on above: Ordered: 01/06/2024 [facility] Work Phone: Immunizations Immunization Date Immunization Notes Care Provider [email or web address] 09-15-2023 influenza, injectabl e, quadrivalent, preservative free [facility] 09-15-2023 influenza virus vaccine, unspecified formulation Ángel Buckner DO Work Phone: [facility] 09-25-2022 COVID-19 Moderna (BIvalent) Kiya Schaffer Other [facility] 08-23-2021 COVID-19 Pfizer Subha Fitt Other [facility] 07-31-2021 COVID-19 Pfizer Subha Fitt Other [facility] 05-19-2021 diphtheria, tetanus toxoids and pertussis vaccine [facility] Payers Date Payer Category Payer Self-pay [id number] 2022 Private Health Insurance [employer] [id number] 2022 Unknown [employer] [id number] 2022-Present [address] [place] [address] [id number] 1990 Unknown [id number] 2.16.840.1.711922.3.579.2 .593 1990 Unknown [id number] 2.16.840.1.136654.3.579.2 .593 1990 Unknown [id number] 2.16.840.1.568916.3.579.2 .1259 1990 Unknown [id number] 2.16.840.1.848554.3.579.2 .1259 1990 Unknown [id number] 2.16.840.1.696478.3.579.2 .1259 1990 Unknown [id number] 2.16.840.1.696704.3.579.2 .1259 1990 Unknown [id number] 2.16.840.1.338205.3.579.2 .1259 1990 Unknown [id number] 2.16.840.1.773588.3.579.2 .1259 1990 Unknown [id number] 2.16.840.1.726292.3.579.2 .1259 1990 Unknown [id number] 2.16.840.1.199518.3.579.2 .1259 1990 Unknown [id number] 2.16.840.1.500545.3.579.2 .1258 1990 Unknown [id number] 2.16.840.1.927738.3.579.2 .9 1990 Unknown [id number] 2.16.840.1.527118.3.579.2 .1258 1990 Unknown [id number] 2.16.840.1.101440.3.579.2 .1258 1990 Unknown [id number] 2.16.840.1.195679.3.579.2 .1258 1990 Unknown [id number] 2.16.840.1.192549.3.579.2 .1258 1990 Unknown [id number] 2.16.840.1.979268.3.579.2 .1258 1990 Unknown [id number] 2.16.840.1.149672.3.579.2 .1258 1990 Unknown [id number] 2.16.840.1.408934.3.579.2 .9 1959 Unknown [id number] 2.16.840.1.428308.19 Unknown [id number] 2.16.840.1.012769.3.579.2 .531 Unknown [id number] 2.16840.1.738883.3.579.2 .531 Worker's Compensation [facility] C t Ind [id number] Social History Date Type Detail Facility Start: 10-13-2023 End: 09-13-2024 Sex Assigned At [facility] Start: 1990 Sex Assigned At Female F [facility] Start: 08-13-2023 End: 05-03-2024 Tobacco smoking status NHIS Never smoked tobacco [facility] Start: 01-06-2024 End: 01-05-2025 Alcohol intake Current drinker of alcohol (finding) [...] [facility] Start: 10-18-2024 Sex Female (finding) [facility] Start: 11-16-2024 [facility] Clinical Notes 08-23-2021 to 08-07-2025 Mary Lou Kearney, THEATRE PROGRAM DIRECTOR - 08/07/2025 3:00 PM Joselito Kearney, THEATRE PROGRAM DIRECTOR - 08/03/2025 9:10 AM EDTEdson Dewitt, AERIAL LINEMAN - 07/24/2025 11:20 AM Joselito Kearney, JUAN JOSE - 07/17/2025 2:50 PM EDT Note Date [...] nursing note reviewed. Exam conducted with a ballast regulator operator present. Vitals: Estimated body mass index is 36.34 kg/m as calculated from the following: Height as of 24: 5' 7 . Weight as of this encounter: 232 lb. BP: 130/80 Patient's last menstrual period was 11/02/2024. ASSESSMENT & PLAN ICD-10-CM 1. Third trimester ([facility]) Z34.93 POCT urinalysis dipstick manually resulted 2. 39 weeks gestation of ([facility]) Z3A.39 Patient presents today for a routine obstetrics appointment. Patient is currently 39w6d with a Estimated Date of Delivery: 08/09/25. Patient to have IOL on 08/08/25. Documented by Mary Lou Kearney LPN on behalf of: Ángel Buckner DO documented in this encounter [facility] 08-03-2025 History of Presen t [...] nursing note reviewed. Exam conducted with a ballast regulator operator present. Vitals: Estimated body mass index is 36.46 kg/m as calculated from the following: Height as of 24: 5' 7 . Weight as of this encounter: 232 lb 12.8 oz. BP: 120/76 Patient's last menstrual period was 11/02/2024. ASSESSMENT & PLAN ICD-10-CM 1. Third trimester ([facility]) Z34.93 POCT urinalysis dipstick manually resulted 2. 39 weeks gestation of ([facility]) Z3A.39 POCT urinalysis dipstick manually resulted Patient presents today for a routine obstetrics appointment. Patient is currently 39w1d with a Estimated Date of Delivery: 08/09/25. Patient to have IOL on 08/08/25 0600. RTC for appointment. Documented by Mary Lou Kearney LPN on behalf of: Ángel Buckner DO documented in this encounter [facility] 07-24-2025 History of Presen t [...] nursing note reviewed. Exam conducted with a ballast regulator operator present. Vitals: Estimated body mass index is 36.57 kg/m as calculated from the following: Height as of 01/06/24: 5' 7 . Weight as of this encounter: 233 lb 8 oz. BP: 118/74 Patient's last menstrual period was 11/02/2024. ASSESSMENT & PLAN ICD-10-CM 1. Third trimester ([facility]) Z34.93 POCT urinalysis dipstick manually resulted 2. 37 weeks gestation of ([facility]) Z3A.37 Return OB: Patient presents today for [...] Ángel Buckner DO documented in this encounter [facility] 07-17-2025 History of Presen t [...] nursing note reviewed. Exam conducted with a ballast regulator operator present. Vitals: Estimated body mass index is 36.77 kg/m as calculated from the following: Height as of 01/06/24: 5' 7 . Weight as of this encounter: 234 lb 12.8 oz. BP: 118/70 Patient's last menstrual period was 11/02/2024. ASSESSMENT & PLAN ICD-10-CM 1. 36 weeks gestation of ([facility]) Z3A.36 POCT urinalysis dipstick manually resulted 2. Third trimester ([facility]) Z34.93 POCT urinalysis dipstick manually resulted 3. History of miscarriage Z87.59 4. Multigravida of advanced maternal age in third trimester ([facility]) O09.523 5. Excessive growth affecting management of in third trimester, single or unspecified fetus ([facility]) O36.63X0 Patient presents today for a routine obstetrics appointment. Patient is currently 36w5d with a Estimated Date of Delivery: 08/09/25. Pelvic exam performed and patient is currently 2cm and 70% effaced. Patient to return to clinic in 1 week. Documented by Mary Lou Kearney LPN on behalf of: Ángel Buckner DO documented in this encounter [facility] 07-10-2025 History of Presen t [...] Third trimester ([facility]) Z34.93 CULTURE, GROUP B STREP WITH SUSCEPTIBLITY CULTURE, GROUP B STREP WITH SUSCEPTIBLITY 2. 35 weeks gestation of ([facility]) Z3A.35 POCT urinalysis dipstick manually resulted Return [...] Ángel Buckner DO documented in this encounter [facility] 06-26-2025 History of Presen t [...] nursing note reviewed. Exam conducted with a ballast regulator operator present. Vitals: Estimated body mass index is 36.2 kg/m as calculated from the following: Height as of 24: 5' 7 . Weight as of this encounter: 231 lb 1.9 oz. BP: 116/74 Patient's last menstrual period was 11/02/2024. ASSESSMENT & PLAN (Z34.93) Third trimester ([facility]) Plan: POCT urinalysis dipstick manually resulted (Z3A.33) 33 weeks gestation of ([facility]) Plan: POCT urinalysis dipstick manually resulted Patient presents today for a routine obstetrics appointment. Patient is currently 33w5d with a Estimated Date of Delivery: 08/09/25. Patient to return to clinic in 2 weeks for GBS. Documented by Mary Lou Kearney LPN on behalf of: Ángel Buckner DO documented in this encounter [facility] 06-12-2025 History of Presen t [...] in third trimester, single or unspecified fetus ([facility]) O36.63X0 OB follow up transabdominal approach 2. 31 weeks gestation of ([facility]) Z3A.31 POCT urinalysis dipstick manually resulted 3. Third trimester ([facility]) Z34.93 POCT urinalysis dipstick manually resulted 4. History of miscarriage Z87.59 5. Multigravida of advanced maternal age in third trimester ([facility]) O09.523 Return OB: Patient presents today for [...] Ángel Buckner DO documented in this encounter [facility] 05-30-2025 History of Presen t [...] nursing note reviewed. Exam conducted with a ballast regulator operator present. Vitals: Estimated body mass index is 35.52 kg/m as calculated from the following: Height as of 01/06/24: 5' 7 . Weight as of this encounter: 226 lb 12.8 oz. BP: 120/78 Patient's last menstrual period was 11/02/2024. ASSESSMENT & PLAN ICD-10-CM 1. Third trimester ([facility]) Z34.93 POCT urinalysis dipstick manually resulted 2. 29 weeks gestation of ([facility]) Z3A.29 POCT urinalysis dipstick manually resulted 3. History of miscarriage Z87.59 4. Multigravida of advanced maternal age in third trimester ([facility]) O09.523 Return OB: Patient presents today for [...] Ángel Buckner DO documented in this encounter [facility] 05-01-2025 History of Presen t [...] nursing note reviewed. Exam conducted with a ballast regulator operator present. Vitals: Estimated body mass index [...] Edson Dewitt NP documented in this encounter [facility] 03-30-2025 History of Presen t [...] nursing note reviewed. Exam conducted with a ballast regulator operator present. Vitals: Estimated body mass index [...] Ángel Buckner DO documented in this encounter [facility] 03-02-2025 History of Presen t [...] nursing note reviewed. Exam conducted with a ballast regulator operator present. Vitals: Estimated body mass index [...] of: ALEXANDER Gramajo documented in this encounter [facility] 02-02-2025 History of Presen t [...] by ALEXANDER Gramajo on behalf of: Ángel Bucnker DO documented in this encounter [facility] 01-05-2025 History of Presen t illness Narrative Reason for Appointment: Patient ID: Michelet Reyes is a 35 y.o. female who presents for Amenorrhea Patient presents today for a Nurse OB Intake appointment. Patient is 39w5d with a Estimated Date of Delivery: 08/09/25 OB History Para Term AB Living 4 1 1 1 2 SAB IAB Ectopic Multiple Live Births 1 1 # Outcome Date GA Lbr Chip/2nd Weight Sex Type Anes PTL Lv 4 Term 08/07/25 39w5d Vag-Spont BLAINE 3 2 1 SAB Current Medications: has a current medication list which includes the following prescription(s): aspirin, fluticasone, omeprazole, and mv-min-fe fum-fa-dha. Medical History: Active Ambulatory Problems Diagnosis Date Noted No Active Ambulatory Problems Resolved Ambulatory Problems Diagnosis Date Noted No Resolved Ambulatory Problems Past Medical History: Diagnosis Date Fatigue GARTH (generalized anxiety disorder) Hyperlipidemia Paronychia, finger Family History Problem Relation Name Age of Onset Hypertension Father Social History Tobacco Use Smoking status: Never Smokeless tobacco: Not on file Substance Use Topics Alcohol use: Yes Comment: Caffeine intake: none Drug use: Not on file Past Surgical History: Procedure Laterality Date PAP SMEAR 06/19/2020 WNL Allergies Allergen Reactions Amoxicillin Hives Penicillin G Unknown Vitals: Estimated body mass index is 36.34 kg/m as calculated from the following: Height as of 01/06/24: 5' 7 . Weight as of 08/07/25: 232 lb. BP: Patient's last menstrual period was 11/02/2024. Assessment/Plan Diagnoses and all orders for this visit: Missed menses - Type and screen; Future - ABO/Rh; Future - CBC and differential - Hemoglobin A1c - RPR - Rubella antibody, IgG - Hepatitis B surface antigen - Hepatitis C antibody - HIV-1 and HIV-2 antibodies - Urine culture , unspecified gestational age ([facility]) - Type and screen; Future - ABO/Rh; Future - CBC and differential - Hemoglobin A1c - RPR - Rubella antibody, IgG - Hepatitis B surface antigen - Hepatitis C antibody - HIV-1 and HIV-2 antibodies - Rapid drug screen, urine; Future Encounter for supervision of normal first in first trimester ([facility]) - Rapid drug screen, urine; Future Nurse Note: OB Intake: Patient presents today for first OB visit. Patients history has been reviewed in great detail including any potential risks. Patient signed consent forms and patient desires testing in both trimesters. Patient currently has no complaints and has been advised to drink 6-8 glasses of water a day, eat no raw or undercooked meat, and stay away from [facility]. Patient has also been advised to not change litter boxes and eat 6 small meals a day. Patient has been consulted regarding the do's and don'ts of . Patient was given labs and all questions and concerns were answered. Follow Up: Patient is to return in 4 weeks for routine OB appointment. Follow Up: Patient is to have labs drawn at directed and return to office for initial OB appointment with provider. Patient may call office as needed with any concerns or questions. Nurse Visit Completed by: Keyla Arias LPN documented in this encounter [facility] 09-13-2024 History of Presen t [...] nursing note reviewed. Exam conducted with a ballast regulator operator present. Vitals: Estimated body mass index [...] Ángel Buckner DO documented in this encounter [facility] 01-06-2024 History of Presen t [...] Diagnosis Date Fatigue GARTH (generalized anxiety disorder) ([facility]) Hyperlipidemia ([facility]) Paronychia, finger Family History Problem Relation Name [...] of: ALEXANDER Gramajo documented in this encounter [facility] 10-02-2023 Evaluation note Encounter Date [...] prior to bedtime. Weight loss. Pepcid PRN [facility] Other 2023 Evaluation note* Encounter Date Diagnosis Assessment Notes Treatment Notes Treatment Clinical Notes Dec, Nasal turbinate hypertrophy (ICD-10 - J34.3) FLonase, saline NS, Sudafed and avoid use of Afin. Refer to ENT. Dec, Nonallergic vasomotor rhinitis (ICD-10 - J30.0) Prednisone tapered over 8 days. Claritin as needed. [facility] Other 02-13-2023 Evaluation note* Encounter Date Diagnosis Assessment Notes Treatment Notes Treatment Clinical Notes Dec, Acute non-recurrent maxillary sinusitis (ICD-10 - J01.00) [facility] Other 01-25-2023 Evaluation note* Encounter Date Diagnosis Assessment Notes Treatment Notes Treatment Clinical Notes Nov, Acute non-recurrent maxillary sinusitis (ICD-10 - J01.00) Instructed to use Robitussin or Mucinex for cough, saline or Flonase NS for congestion, Tylenol for pain and fever. [facility] Other 10-28-2022 Evaluation note* Encounter Date [...] (suspected) exposure to covid-19 (ICD-10 - Z20.822) [facility] Other 10-27-2022 Evaluation note* Encounter Date Diagnosis Assessment Notes Treatment Notes Treatment Clinical Notes Aug, Encounter for immunization (ICD-10 - Z23) Patient presents today for COVID-19 vaccination booster. Patient pre-vaccination form answers reviewed. Patient denies current illness or allergic reaction to any component of a COVD-19 vaccine. Patient provided with copy of current EUA. [facility] Other 02-02-2022 Evaluation note* Encounter Date [...] Patient care instructions given in writting by [facility] document. Additional time spent conducting pre-visit phone call, screening for symptoms, instructions on social distancing, application and removal of PPE, and cleaning of examination room, equipment and supplies was preformed. Patient education given for testing methodology and results. Patient care instructions given in writting by [facility] document. [facility] Other 01-28-2022 Evaluation note* Encounter Date [...] Patient care instructions given in writting by [facility] document. [facility] Other 09-24-2021 Evaluation note* Encounter Date Diagnosis Assessment Notes Treatment Notes Treatment Clinical Notes Jul, Encounter for immunization (ICD-10 - Z23) Patient presents for COVID-19 vaccination #2. Pre-screening form answers evaluated with patient. Patient denies current illness or allergic reaction to component of COVID-19 vaccine. Patient provided with current copy of EUA. [facility] Other Evaluation noteNo assessment information available [facility] Work Phone: Evaluation noteNo InformationNort [employer] Other Evaluation note* Diagnosis Encounter for weight management Hormone disorder Unspecified endocrine disorder 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 documented in this encounter [facility]* Diagnosis Well woman exam with routine gynecological exam Routine gynecological examination documented in [facility] encounter [facility]* Diagnosis Onset Date Resolution Status Admit Date Hypercholesteremia acute Novemb er 2023 11:13am Wellness examination acute Nove mber 2023 11:13am [facility] Work Phone: Evaluation note* Diagnosis 13 [...] in this encounter [facility]* Diagnosis Missed menses , unspecified gestational age (HHS-HCC) Encounter for supervision of normal first in first trimester (HHS-HCC) documented [facility] this encounter [facility] Narrative - Reported* Type Description Date Medical History Child X2 Natural Surgical History No know Surgical history Hospitalization History see above [facility] Other History general Narrative - Reported* Type Description Date Medical History Child X2 Natural Surgical History No Surgical history information Hospitalization History see above [facility] Other History general Narrative - Reported* Type Description Date Medical History Child X2 Natural Medical History Body mass index (BMI) of 25.0 to 29.9 Medical History Fatigue Medical History Hyperlipidemia, group A Medical History GARTH (generalized anxiety disorde r) Surgical History No know Surgical history Hospitalization History No know Hospitalization history [facility] Other Chief Complaint and Reason for [...] Nasal turbinate hype rtrophy (J34.3) Referral Organization [facility] Nela russo Referring Provider First Name Robles Referring Provider Last Name Nela Referring Provider Specialty Internal Me dicine Referred Organization [facility] Referred Provider Robles Hernandez Referred Address ,[place], [place],[address] Referred Provider Specialty Otolaryngolo gy Referral Priority Routine Referral Appointment Date 2023-02-04 General Notes Rosangela Cruz 09:25:33 AM >received today, notes locked, insurance card attached, referral faxed Rosangela Cruz 01/29/2023 12:42:25 PM >Shannan at Dr. Rodriges office requested referral be faxed again to [phone]. done! Rosangela Cruz 02/05/2023 02:23:23 PM >notes being sent over now Rosangela Cruz 02/10/2023 08:41:31 AM >NOTES RECEIVED AND SENT FOR REVIEW Additional Source Comments REASON FOR VISIT (unrecogniz ed section and content) Reason Comments Adipex #5 Reason Comments Well Women Visit Reason Comments Routine Visit Reason Comments Amenorrhea Care Teams (unrecognized sec tion and content) [...] January 07, 2024 End: January 07, 2024 Nuclear Radiation Engineer Relationship Specialty Start Date End Date Robles Charles MD [address] [place] [id number] PCP - General Internal Medicine 07/30/23 Team Status: Inactive Member Role Status Dates Robles Charles DO Primary Care Provide r, Attending Provider Active Start: 2024 End: 2024 Team Status: Inactive Member Role Status Dates Robles Charles DO Primary Care Provider Active Start: May 03, 2024 End: May 03, 2024 Caro Chacon APRN [employer]ERIAL LINEMAN-C Attending Provider Act alex Start: May 03, 2024 End: May 03, 2024 Team Status: Inactive Member Role Status Dates Robles Charles DO Primary Care Provide r, Attending Provider Active Start: August 29, 2024 End: August 29, 2024 Nuclear Radiation Engineer Relationship Specialty Start Date End Date Robles Charles MD [address] [place] [id number] PCP - General Internal Medicine 07/30/23 Deisy Villar PA [address] [place], [place] [address]justus [place], [place] [id number] PCP - Medical [place] [facility] 11/30/23 11/29/99 Nuclear Radiation Engineer Relationship Specialty Start Date End Date Robles Charles MD [address] [place] [phone] PCP - General Internal Medicine 07/30/23 Deisy Villar PA [address] [place] [address] PCP - Medical [place] [employer] 11/30/23 11/29/99 Nuclear Radiation Engineer Relationship Specialty Start Date End Date Robles Charles MD [address] [facility] [place] [phone] PCP - General Internal Medicine 07/30/23 Deisy Villar PA [address] [place] [address] [place] [address] PCP - Medical [place] [employer] 11/30/23 11/29/99 Team Status: Inactive Member Role Status Dates Robles Charles DO Primary Care Provider Active Start: September 22, 2024 End: September 22, 2024 Delano Francis - [facility] , DO [facility] Attending Provider Active Start: September 22, 2024 End: September 22, 2024 Team Status: Active Member Role Status Dates Robles Charles DO Primary Care Provide r, Attending Provider Active Start: October 14, 2024 Team Status: Inactive Member Role Status Dates Robles Charles DO Primary Care Provide r, Attending Provider Active Start: October 18, 2024 End: October 18, 2024 Nuclear Radiation Engineer Relationship Specialty Start Date End Date Robles Charles MD [address] [place] [address] PCP - General Internal Medicine 07/30/23 Deisy Villar PA [address] [place] [address] [place] [address] PCP - Medical [place] [employer] 11/30/23 11/29/99 Nuclear Radiation Engineer Relationship Specialty Start Date End Date Robles Charles MD [address] [place] [phone] PCP - General Internal Medicine 07/30/23 Deisy Villar PA [address] [place], [place] [address] [address] PCP - Medical [place] [facility] 11/30/23 11/29/99 Nuclear Radiation Engineer Relationship Specialty Start Date End Date Robles Charles MD [address] [place] [address] PCP - General Internal Medicine 07/30/23 Deisy Villar PA [address] [place] [address] [place] [address] PCP - Medical [place] [employer] 11/30/23 11/29/99 Nuclear Radiation Engineer Relationship Specialty Start Date End Date Robles Charles MD [address] [place] [address] PCP - General Internal Medicine 07/30/23 Deisy Villar PA [address] [place] [address] [place] [address] PCP - Medical [place] [employer] 11/30/23 11/29/99 Nuclear Radiation Engineer Relationship Specialty Start Date End Date Robles Charles MD PCP - General Internal Medicine 07/30/23 Deisy Villar PA [address] [place], [place] [address]just[place] [address] PCP - Medical [place] [employer] 11/30/23 11/29/99 Nuclear Radiation Engineer Relationship Specialty Start Date End Date Robles Charles DO PCP - General Internal Medicine 07/30/23 Deisy Villar PA [address] [place] [address] [place] [address] PCP - Medical [place] [employer] 11/30/23 11/29/99 Nuclear Radiation Engineer Relationship Specialty Start Date End Date Robles Charles DO [address] [facility] [place] [address] PCP - General Internal Medicine 07/30/23 Deisy Villar PA [address] [place] [address] [place] [address] PCP - Medical [place] [employer] 11/30/23 11/29/99 Nuclear Radiation Engineer Relationship Specialty Start Date End Date Robles Charles DO [address] [facility] [place] [address] PCP - General Internal Medicine 07/30/23 Deisy Villar PA [address] [place] [address] [place] [address] PCP - Medical [place] [employer] 11/30/23 11/29/99 Nuclear Radiation Engineer Relationship Specialty Start Date End Date Robles Charles DO [address] [facility] [place] [address] PCP - General Internal Medicine 07/30/23 Deisy Villar, PA [address] [place] [address] Dr [place], [place] [id number] PCP - Medical [place] [employer] 11/30/23 11/29/99 Nuclear Radiation Engineer Relationship Specialty Start Date End Date Robles Charles DO [address] [facility] [place] [address] PCP - General Internal Medicine 07/30/23 Deisy Villar PA [address] [place] [address] Tosin Ram[place], [place] [id number] PCP - Medical [place] [employer] 11/30/23 11/29/99 Nuclear Radiation Engineer Relationship Specialty Start Date End Date Robles Charles DO [address] [place] [address] PCP - General Internal Medicine 07/30/23 Deisy Villar PA [address] [place] [address] [place] [address] PCP - Medical [place] [facility] 11/30/23 11/29/99 Nuclear Radiation Engineer Relationship Specialty Start Date End Date Robles Charles DO [address] [place] [address] PCP - General Internal Medicine 07/30/23 Deisy Villar PA [address] [place] [address] Dr [place], [facility] PCP - Medical [place] [employer] 11/30/23 11/29/99 Nuclear Radiation Engineer Relationship Specialty Start Date End Date Robles Charles DO [address] [place] [address] PCP - General Internal Medicine 07/30/23 Deisy Villar, PA [address] [place] [address] Tosin [place], [place] [id number] PCP - Medical [place] [employer] 11/30/23 11/29/99 Nuclear Radiation Engineer Relationship Specialty Start Date End Date Robles Charles DO [address] [place] [address] PCP - General Internal Medicine 07/30/23 Deisy Villar PA [address] [place] [address] Dr [place], [place] [id number] PCP - Medical [place] [employer] 11/30/23 11/29/99 Nuclear Radiation Engineer Relationship Specialty Start Date End Date Robles Charles DO [address] [place] [address] PCP - General Internal Medicine 07/30/23 Deisy Villar PA [address] [place] [address] [place] [address] PCP - Medical [place] [employer] 11/30/23 11/29/99 Nuclear Radiation Engineer Relationship Specialty [place] [address] [place] [id number] PCP - General Internal Medicine 07/30/23 Deisy Villar PA [address] [place] [address] [place] [address] PCP - Medical [place] [facility] 11/30/23 11/29/99 Nuclear Radiation Engineer Relationship Specialty Start Date End Date Robles Charles DO [address] [place] [address] PCP - General Internal Medicine 07/30/23 Deisy Villar PA [address] [place] [address] [place] [address] PCP - Medical [place] [employer] 11/30/23 11/29/99 Nuclear Radiation Engineer Relationship Specialty Start Date End Date Robles Charles DO [address] [facility] [place] [address] PCP - General Internal Medicine 07/30/23 Deisy Villar PA [address] [facility] [place] [address] PCP - Medical [place] [employer] 11/30/23 11/29/99 Nuclear Radiation Engineer Relationship Specialty Start Date End Date Robles Charles DO [address] [facility] [place] [address] PCP - General Internal Medicine 07/30/23 Deisy Villar PA [address] [facility] [place] [address] PCP - Medical [place] [employer] 11/30/23 11/29/99 Goals (unrecognized section and content) Goals may be documented in a n alternate section INFORMATION SOURCE (unrecogn ized section and content) DATE CREATED AUTHOR 09/02/2022 [facility] DATE CREATED AUTHOR AUTHOR'S ORGANIZ ATION 09/23/2024 [facility] DATE CREATED AUTHOR AUTHOR'S ORGANIZ ATION 08/09/2025 [facility] EPIC FOR RECORDS [...] BE BASED ON THE PRIMARY CLINICAL RECORDS. [employer] provides no warranty or guarantee of the accuracy or completeness of information in this document.
--- NOTE | 2025-08-21 13:43 | PC.NURSE ---
Angela and 2 week old daughter Sabra arrive for support post oral revision. Dr Strong evaluated and treated baby 08/14/2025 for tongue tie and upper lip tie. Both areas show healing. Mom shown suck exercises to assist infnat to proper tongue movement. States is confident will be able to do suck exercises as shown. able to track finger to lower lip, extend tongue out of mouth. No heart shape or groved tongue noted with exercises. weight up from last week at peds office. Mom pleased with infants progress. Will call if has further needs. Leaves ambulatory for home.
== END 2025-08-21 13:47 | disposition home or self-care (01) ==
LOC: FBCO 09:13
PROVIDERS: PCP Internal Medicine; Visit Provider Obstetrics & Gynecology
DX: Z39.1 Encounter for care and examination of lactating mother (principal)
CPT/HCPCS: G0463

== ENCOUNTER 2025-09-05 19:33 | Outpatient (REF) | payer OTHER, SELFPAY ==
--- OUTSIDE RECORDS SUMMARY | 2025-09-05 19:38 | XMS_ITS | CCD ---
Author Organization [facility] CliniSyla Care Team Providers Care Packing And Shipping Clerk Name Role Phone Subha Dillon Unavailable Elsi Mayer Unavailable MD Liz Conteh Primary Care Provider [phone] DO Delano Francis Attending Provider [phone] SITA, DR LUJAN Consulting Unavailable SITA, DR LUJAN Admitting Unavailable REQUEST, DR RAIN LISTED Primary Care Unavaila jt BUCKNER, DR LUJAN Attending Unavailable NELA, DR SEARS Attending Unavailable NELA, DR SEARS Consulting Unavailable NELA, DR SEARS Admitting Unavailable REQUEST, DR RAIN LISTED Primary Care Unavaila Kiya Gonsalves Unavailable MD Derick Timmons Attending Provider SHANNON Schaffer Attending Provider [phone] Robles Charles Unavailable MD Liz Conteh Primary Care Provider DO Delano Francis Attending Provider QUANG Villar Attending Provider DO Robles Charles Primary Care Provider Robles Charles MD Primary Care Provider QUANG Villar Attending Provider [phone] DO Robles Charles Primary Care Provider Deisy Pratt Unavailable DO Robles Charles Primary Care Provider Tito - DO Delano MEZA Attending Provider Tito Delano MEZA Admitting Unavailable Tito Delano MEZA Attending Unavailable Robles Charles Primary Care Unavailable Deisy Villar Admitting Unavailable Deisy Villar Attending Unavailable Robles Charles Primary Care Unavailable Robles Charles DO Primary Care Provider [phone] [facility] Delano CRESPO Attending Provider Robles [...] (5 sources) Penicillin V Drug Allergy rash [facility] [employer] Other (1 source) Amoxicillin Drug Allergy 0 [facility] Repository (1 source) Penicillins Drug allergy (disorder) [facility] Repository (5 sources) Penicillin Drug Allergy rash [employer] Other (1 source) Substance with penicillin structure and antibacterial mechanism of action (substance) Drug allergy 3 PENICILLINS [place] [employer] Other (20 sources) Amoxicillin Drug Allergy 3 [facility] (20 sources) Penicillin G Drug Allergy 3 Unknown [facility] (1 source) Penicillins Drug allergy (disorder) 4 [facility] Repository Medications Current Medications Medication Drug [...] or vomiting 30 tablet 2 12/22/2024 02/02/2025 Pre- (10 sources) Pre- Not-Ta flakita Pre- [...] AUTO DIFFon BASOPHILS ABSOLUTE AUTO 0 [facility] Basophils/100 WBC (Bld) 0.2 % 0.2 - 2.0 % [facility] Eosinophils/100 WBC (Bld) 0.4 % Low 0.9 - 7.0 % [facility] Erythrocyte distribution width (RBC) [Ratio] 13.6 % 11.0 - 15.0 % [facility] Hematocrit (Bld) [Volume fraction] 32.6 % Low 36.0 - 48.0 % [facility] Hemoglobin (Bld) [Mass/Vol] 11.2 g/dL Low 12.0 - 16.0 g/dL [facility] IMMATURE GRANULOCYTES ABS AUTO 0.11 High [facility] Immature granulocytes/100 WBC (Bld) 0.8 % High 0.0 - 0.5 % [facility] Interpretation and review of laboratory results Abnormal [facility] LYMPHOCYTES ABSOLUTE AUTO 1.5 [facility] Lymphocytes/100 WBC (Bld) 10.6 % Low 20.5 - 60.0 % [facility] MCH (RBC) [Entitic mass] 32.6 pg 26.7 - 34.0 pg [facility] MCHC (RBC) [Mass/Vol] 34.4 g/dL 29.9 - 35.2 g/dL [facility] MCV (RBC) [Entitic vol] 94.8 fL 81.0 - 99.0 fL [facility] MONOCYTES ABSOLUTE AUTO 1.2 High [facility] Monocytes/100 WBC (Bld) 8.1 % 1.7 - 12.0 % [facility] NEUTROPHILS ABSOLUTE AUTO 11.6 High [facility] Neutrophils/100 WBC (Bld) 79.9 % High 43.0 - 75.0 % [facility] Platelet mean volume (Bld) [Entitic vol] 9.6 fL 9.5 - 13.5 fL [facility] TB EO # 0.1 [facility] TB PLT 312 [facility] TB RBC 3.44 Low [facility] TB WBC 14.5 High [facility] UA (CLEAN/CATCH) TYPE 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 YELLOW YELLOW [facility] GLUCOSE URINE UA Negative NEGATIVE mg/dL [facility] Interpretation and review of laboratory results Abnormal [facility] Ketones Ql (U) 15 mg/dL Abnormal NEGATIVE [facility] Leukocyte esterase Test strip Ql (U) SMALL Abnormal NEGATIVE [facility] NITRITE URINE Negative NEGATIVE [facility] pH (U) 6.5 [pH] 5.0 - 9.0 [facility] PROTEIN URINE Negative NEG/TRACE mg/dL [facility] SPECIFIC GRAVITY URINE <=1.005 Abnormal 1.005 - 1.025 [facility] URINE MICROSCOPIC INDICATED YES [facility] UROBILINOGEN URINE 0.2 EU/dL 0.2 - 1.0 EU/dL [facility] Urinalysis macro (dipstick) panel (U)on 08-07-2025 Bilirubin, UA Negative Negative - 4(70) +++ mg/dL [facility] Blood, UA Positive Negative - 50 Ezequiel/mcL [facility] Clarity, UA Clear [facility] Color, UA Yellow [facility] Glucose, UA Negative Negative - 1999(110) ++++ mg/dL [facility] Interpretation and review of laboratory results Abnormal [facility] Ketones, UA Negative Negative - 160(16) ++++ mg/dL [facility] Leukocytes, UA Negative Negative - 500+++ Jason/mcL [facility] Nitrite, UA Negative Negative - Positive [facility] pH, UA 6 5 - 9 [facility] Protein, UA Negative Negative - 2000(20) ++++ mg/dL [facility] Spec Grav, UA 1.025 1 - 1.03 [facility] Urobilinogen, UA 1.0 0.2 - 12 mg/dL [facility] US OB BPP W NON-STRESS on 08-05-2025 [place] [address] Ultrasound Report Signed Patient: ANGELA REYES MR#: [id number] : 1990 Acct:[id number] Age/Sex: 35 / F ADM Date: 08/05/25 Loc: [facility] 250-[address]: Ángel Buckner D.O. Ordering Physician: Ángel Buckner D.O. Date of Service: 08/05/25 Procedure(s): US OB BPP w non-stress Accession Number(s): [id number] cc: Robles Charles D.O.; Ángel Buckner D.O. The [address] [address] Patient Name: ANGELA REYES MRN: [facility]:[id number] date: 1990 Sex: F Assigned Patient Location: [facility] Current Patient Location: [facility] Accession/Order Number: [id number] Exam Date: 08/05/2025 08:35 Report Date: 08/05/2025 09:03 At the request of: ÁNGEL BUCKNER DO Procedure: US OB BPP w non-stress Biophysical profile. Reason for exam: History of miscarriage. COMPARISON: 07/29/2025 TECHNIQUE: Transabdominal imaging of the gravid uterus was obtained. FINDINGS: The teletypewriter installer reports a BPP of 8 out of 8. MARTY is normal at 12.6 cm. heart rate 132 bpm. US/US OB BPP w non-stress IMPRESSION: BPP 8 out of 8. Impression dictated by: Justin Mack Jr., D.O. 08/05/2025 9:03 AM Dictation Location: [place] [address] Electronically authenticated by: [id number] Y Date: 08/05/2025 09:03 Dictated By: Justin Mack M.D. Signed By: 08/05/25904 DD/ 2 TD/TT: Claim Professional: [facility] Radiology, Radiologbrittanie pa MD - 08/05/2025 The [place] [id number] Ultrasound Report Signed Patient: ANGELA REYES MR#: [id number] : 1990 Acct:[id number] Age/Sex: 35 / F ADM Date: 08/05/25 Loc: [facility] 250-[address]: Ángel Buckner D.O. Ordering Physician: Ángel Buckner D.O. Date of Service: 08/05/25 Procedure(s): US OB BPP w non-stress Accession Number(s): [id number] cc: Robles Charles D.O.; Ángel Buckner D.O. [place] [address] Patient Name: ANGELA REYES MRN: [facility]:[id number] date: 1990 Sex: F Assigned Patient Location: [facility] Current Patient Location: [facility] Accession/Order Number: [id number] Exam Date: 08/05/2025 08:35 Report Date: 08/05/2025 09:03 At the request of: ÁNGEL BUCKNER DO Procedure: US OB BPP w non-stress Biophysical profile. Reason for exam: History of miscarriage. COMPARISON: 07/29/2025 TECHNIQUE: Transabdominal imaging of the gravid uterus was obtained. FINDINGS: The teletypewriter installer reports a BPP of 8 out of 8. MARTY is normal at 12.6 cm. heart rate 132 bpm. US/US OB BPP w non-stress IMPRESSION: BPP 8 out of 8. Impression dictated by: Justin Mack Jr., D.O. 08/05/2025 9:03 AM Dictation Location: [facility] Electronically authenticated by: [id number] Y Date: 08/05/2025 09:03 Dictated By: Justin Mack M.D. Signed By: 08/05/25904 DD/ 2 TD/TT: Claim Professional: [facility] Radiology Study observation (narrative) [facility] US OB BPP W NON-STRESS Ordered By: Radiologist Radiology on 08-05-2025 [facility] Work Phone: Urinalysis macro (dipstick) panel (U)on 08-03-2025 Bilirubin, UA Negative Negative - 4(70) +++ mg/dL [facility] Blood, UA Negative Negative - 50 Ezequiel/mcL [facility] Clarity, UA Clear [facility] Color, UA Yellow [facility] Glucose, UA Negative Negative - 2000(110) ++++ mg/dL [facility] Interpretation and review of laboratory results Abnormal [facility] Ketones, UA Negative Negative - 160(16) ++++ mg/dL [facility] Leukocytes, UA Positive Negative - 500+++ Jason/mcL [facility] Nitrite, UA Negative Negative - Positive [facility] pH, UA 6 5 - 9 [facility] Protein, UA Negative Negative - 2000(20) ++++ mg/dL [facility] Spec Grav, UA 1.015 1 - 1.03 [facility] Urobilinogen, UA 1.0 0.2 - 12 mg/dL [facility] US OB BPP W NON-STRESS on 07-29-2025 [place] [address] Ultrasound Report Signed Patient: ANGELA REYES MR#: [id number] : 1990 Acct:[id number] Age/Sex: 35 / F ADM Date: 07/29/25 Loc: US Attending Dr: Ángel Buckner D.O. Ordering Physician: Ángel Buckner D.O. Date of Service: 07/29/25 Procedure(s): US OB BPP w non-stress Accession Number(s): [id number] cc: Robles Charles D.O.; Ángel Buckner D.O. [place] [address] Patient Name: ANGELA REYES MRN: [id number]:[id number] date: 1990 Sex: F Assigned Patient Location: [facility] Current Patient Location: Accession/Order Number: [id number] Exam Date: 07/29/2025 08:02 Report Date: 07/29/2025 [...] Yusuf M.D. 07/29/2025 11:10 AM Dictation Location: [place] [address] Electronically authenticated by: [id number] Y Date: 07/29/2025 11:10 Dictated By: Roddy Yusuf M.D. Signed By: 07/29/25 1112 DD/ 1110 TD/TT: Claim Professional: [facility] Radiology, Radiologi MD ember - 07/29/2025 [place] [address] Ultrasound Report Signed Patient: ANGELA REYES MR#: [id number] : 1990 Acct:[id number] Age/Sex: 35 / F ADM Date: 07/29/25 Loc: US Attending Dr: Ángel Buckner D.O. Ordering Physician: Ángel Buckner D.O. Date of Service: 07/29/25 Procedure(s): US OB BPP w non-stress Accession Number(s): [id number] cc: Robles Charles D.O.; Ángel Buckner D.O. The [place] [address] Patient Name: ANGELA REYES MRN: [facility]:[id number] date: 1990 Sex: F Assigned Patient Location: [facility] Current Patient Location: Accession/Order Number: [id number] Exam Date: 07/29/2025 08:02 Report Date: 07/29/2025 [...] Yusuf M.D. 07/29/2025 11:10 AM Dictation Location: [facility] Electronically authenticated by: [id number] Y Date: 07/29/2025 11:10 Dictated By: Roddy Yusuf M.D. Signed By: 07/29/25 1112 DD/ 1110 TD/TT: Claim Professional: [facility] Radiology Study observation (narrative) [facility] OB BPP W NON-STRESS Ordered By: Radiologist Radiology on 07-29-2025 [facility] Work Phone: Urinalysis macro (dipstick) panel (U)on 07-24-2025 Bilirubin, UA Negative Negative - 4(70) +++ mg/dL [facility] Blood, UA Negative Negative - 50 Ezequiel/mcL [facility] Clarity, UA Clear [facility] Color, UA Christine [facility] Glucose, UA Negative Negative - 2000(110) ++++ mg/dL [facility] Interpretation and review of laboratory results Abnormal [facility] Ketones, UA Negative Negative - 160(16) ++++ mg/dL [facility] Leukocytes, UA Positive Negative - 500+++ Jason/mcL [facility] Comment on above: 1+ Nitrite, UA Negative Negative - Positive [facility] pH, UA 6 5 - 9 [facility] Protein, UA Positive Negative - 2000(20) ++++ mg/dL [facility] Comment on above: 0.15 g/L Spec Grav, UA 1.015 1 - 1.03 [facility] Urobilinogen, UA 0.2 0.2 - 12 mg/dL [facility] US OB BPP W NON-STRESS on 07-22-2025 [place] [address] Ultrasound Report Signed Patient: ANGELA REYES MR#: [id number] : 1990 Acct:[id number] Age/Sex: 35 / F ADM Date: 07/22/25 Loc: US Attending Dr: Ángel Buckner D.O. Ordering Physician: Ángel Buckner D.O. Date of Service: 07/22/25 Procedure(s): US OB BPP w non-stress Accession Number(s): [id number] cc: Robles Charles D.O.; Ángel Buckner D.O. [address] [address] Patient Name: ANGELA REYES MRN: [facility]:[id number] date: 1990 Sex: F Assigned Patient Location: US Current Patient Location: Accession/Order Number: [id number] Exam Date: 07/22/2025 07:58 Report Date: 07/22/2025 [...] Yusuf M.D. 07/22/2025 5:02 PM Dictation Location: [place] [address] Electronically authenticated by: [id number] Y Date: 07/22/2025 17:02 Dictated By: Roddy Yusuf M.D. Signed By: 07/22/252015 DD/ 01 TD/TT: Claim Professional: [facility] Radiology, Radiologi MD ember - 07/22/2025 [place] [address] Ultrasound Report Signed Patient: ANGELA REYES MR#: [id number] : 1990 Acct:[id number] Age/Sex: 35 / F ADM Date: 07/22/25 Loc: US Attending Dr: Ángel Buckner D.O. Ordering Physician: Ángel Buckner D.O. Date of Service: 07/22/25 Procedure(s): US OB BPP w non-stress Accession Number(s): [id number] cc: Robles Charles D.O.; Ángel Buckner D.O. [place] [address] Patient Name: ANGELA REYES MRN: [id number]:[id number] date: 1990 Sex: F Assigned Patient Location: US Current Patient Location: Accession/Order Number: [id number] Exam Date: 07/22/2025 07:58 Report Date: 07/22/2025 [...] Yusuf M.D. 07/22/2025 5:02 PM Dictation Location: [place] [address] Electronically authenticated by: [id number] Y Date: 07/22/2025 17:02 Dictated By: Roddy Yusuf M.D. Signed By: 07/22/252015 DD/ 01 TD/TT: Claim Professional: [facility] Radiology Study observation (narrative) [facility] US OB BPP W NON-STRESS Ordered By: Radiologist Radiology on 07-22-2025 [facility] Work Phone: Urinalysis macro (dipstick) panel (U)on 07-17-2025 Bilirubin, UA Negative Negative - 4(70) +++ mg/dL [facility] Blood, UA Negative Negative - 50 Ezequiel/mcL [facility] Clarity, UA Clear [facility] Color, UA Yellow [facility] Glucose, UA Negative Negative - 2000(110) ++++ mg/dL [facility] Interpretation and review of laboratory results Abnormal [facility] Ketones, UA Negative Negative - 160(16) ++++ mg/dL [facility] Leukocytes, UA Positive Negative - 500+++ Jason/mcL [facility] Comment on above: 2+ Nitrite, UA Negative Negative - Positive [facility] pH, UA 6 5 - 9 [facility] Protein, UA Negative Negative - 2000(20) ++++ mg/dL [facility] Spec Grav, UA 1.015 1 - 1.03 [facility] Urobilinogen, UA 1.0 0.2 - 12 mg/dL [facility] US OB BPP W NON-STRESS on 07-15-2025 [place] [address] Ultrasound Report Signed Patient: ANGELA REYES MR#: [id number] : 1990 Acct:[id number] Age/Sex: 35 / F ADM Date: 07/15/25 Loc: US Attending Dr: Ángel Buckner D.O. Ordering Physician: Ángel Buckner D.O. Date of Service: 07/15/25 Procedure(s): US OB BPP w non-stress Accession Number(s): [id number] cc: Robles Charles D.O.; Ángel Buckner D.O. [address] [address] Patient Name: ANGELA REYES MRN: [facility]:[id number] date: 1990 Sex: F Assigned Patient Location: [facility] Current Patient Location: Accession/Order Number: [id number] Exam Date: 07/15/2025 09:17 Report Date: 07/15/2025 09:18 At the request of: ÁNGEL BUCKNER DO Procedure: US OB BPP w non-stress Biophysical profile. Reason for exam: Advanced maternal age COMPARISON: 07/08/2025 TECHNIQUE: Transabdominal imaging of the gravid uterus was obtained. FINDINGS: The teletypewriter installer reports a BPP of 8 out of 8. MARTY is normal at 14 cm. heart rate 136 bpm. US/US OB BPP w non-stress IMPRESSION: BPP 8 out of 8. Impression dictated by: Justin Mack Jr., D.O. 07/15/2025 9:18 AM Dictation Location: [place] [address] Electronically authenticated by: [id number] Y Date: 07/15/2025 09:18 Dictated By: Justin Mack M.D. Signed By: 07/15/25919 DD/ 7 TD/TT: Claim Professional: [facility] Radiology Radiologbrittanie pa MD - 07/15/2025 [place] [address] Ultrasound Report Signed Patient: ANGELA REYES MR#: [id number] : 1990 Acct:[id number] Age/Sex: 35 / F ADM Date: 07/15/25 Loc: US Attending Dr: Ángel Bucnker D.O. Ordering Physician: Ángel Buckner D.O. Date of Service: 07/15/25 Procedure(s): US OB BPP w non-stress Accession Number(s): [id number] cc: Robles Charles D.O.; Ángel Buckner D.O. The [address] [address] Patient Name: ANGELA REYES MRN: [facility]:[id number] date: 1990 Sex: F Assigned Patient Location: [facility] Current Patient Location: Accession/Order Number: [id number] Exam Date: 07/15/2025 09:17 Report Date: 07/15/2025 09:18 At the request of: ÁNGEL BUCKNER DO Procedure: US OB BPP w non-stress Biophysical profile. Reason for exam: Advanced maternal age COMPARISON: 07/08/2025 TECHNIQUE: Transabdominal imaging of the gravid uterus was obtained. FINDINGS: The teletypewriter installer reports a BPP of 8 out of 8. MARTY is normal at 14 cm. heart rate 136 bpm. US/US OB BPP w non-stress IMPRESSION: BPP 8 out of 8. Impression dictated by: Justin Mack Jr., D.O. 07/15/2025 9:18 AM Dictation Location: [place] [address] Electronically authenticated by: [id number] Y Date: 07/15/2025 09:18 Dictated By: Justin Mack M.D. Signed By: 07/15/25919 DD/ 7 TD/TT: Claim Professional: [facility] Radiology Study observation (narrative) [facility] US OB BPP W NON-STRESS Ordered By: Radiologist Radiology on 07-15-2025 [facility] Work Phone: Urinalysis macro (dipstick) panel (U)on 07-10-2025 Bilirubin, UA Negative Negative - 4(70) +++ mg/dL [facility] Blood, UA Negative Negative - 50 Ezequiel/mcL [facility] Clarity, UA Clear [facility] Color, UA Yellow [facility] Glucose, UA Negative Negative - 1999(110) ++++ mg/dL [facility] Interpretation and review of laboratory results Abnormal [facility] Ketones, UA Negative Negative - 160(16) ++++ mg/dL [facility] Leukocytes, UA Positive Negative - 500+++ Jason/mcL [facility] Comment on above: small Nitrite, UA Negative Negative - Positive [facility] pH, UA 6 5 - 9 [facility] Protein, UA Negative Negative - 2000(20) ++++ mg/dL [facility] Spec Grav, UA 1.015 1 - 1.03 [facility] Urobilinogen, UA 0.2 0.2 - 12 mg/dL [facility] US OB BPP W NON-STRESS on 07-08-[address] [address] Ultrasound Report Signed Patient: ANGELA REYES MR#: [id number] : 1990 Acct:[id number] Age/Sex: 35 / F ADM Date: 07/08/25 Loc: US Attending Dr: Ángel Buckner D.O. Ordering Physician: Ángel Buckner D.O. Date of Service: 07/08/25 Procedure(s): US OB BPP w non-stress Accession Number(s): [id number] cc: Robles Charles D.O.; Ángel Buckner D.O. The [place] [address] Patient Name: ANGELA REYES MRN: [facility]:[id number] date: 1990 Sex: F Assigned Patient Location: [facility] Current Patient Location: Accession/Order Number: [id number] Exam Date: 07/08/2025 09:19 Report Date: 07/08/2025 09:19 At the request of: ÁNGEL BUCKNER DO Procedure: US OB BPP w non-stress Biophysical profile. Reason for exam: History of miscarriage COMPARISON: 07/01/2025 TECHNIQUE: Transabdominal imaging of the gravid uterus was obtained. FINDINGS: The teletypewriter installer reports a BPP of 8 out of 8. MARTY is normal at 12.5 cm. heart rate 135 bpm. US/US OB BPP w non-stress IMPRESSION: BPP 8 out of 8. Impression dictated by: Justin Mack Jr., D.O. 07/08/2025 9:19 AM Dictation Location: [place] [address] Electronically authenticated by: [id number] Y Date: 07/08/2025 09:19 Dictated By: Justin Mack M.D. Signed By: 07/08/25921 DD/ 8 TD/TT: Claim Professional: [facility] Radiology, Radiologi MD ember - 07/08/2025 The [place] [id number] Ultrasound Report Signed Patient: ANGELA REYES MR#: [id number] : 1990 Acct:[id number] Age/Sex: 35 / F ADM Date: 07/08/25 Loc: US Attending Dr: Ángel Buckner D.O. Ordering Physician: Ángel Buckner D.O. Date of Service: 07/08/25 Procedure(s): US OB BPP w non-stress Accession Number(s): [id number] cc: Robles Charles D.O.; Ángel Buckner D.O. The [place] [address] Patient Name: ANGELA REYES MRN: [id number]:[id number] date: 1990 Sex: F Assigned Patient Location: [facility] Current Patient Location: Accession/Order Number: [id number] Exam Date: 07/08/2025 09:19 Report Date: 07/08/2025 09:19 At the request of: ÁNGEL BUCKNER DO Procedure: US OB BPP w non-stress Biophysical profile. Reason for exam: History of miscarriage COMPARISON: 07/01/2025 TECHNIQUE: Transabdominal imaging of the gravid uterus was obtained. FINDINGS: The teletypewriter installer reports a BPP of 8 out of 8. MARTY is normal at 12.5 cm. heart rate 135 bpm. US/US OB BPP w non-stress IMPRESSION: BPP 8 out of 8. Impression dictated by: Justin Mack Jr., D.O. 07/08/2025 9:19 AM Dictation Location: [place] [address] Electronically authenticated by: [id number] Y Date: 07/08/2025 09:19 Dictated By: Justin Mack M.D. Signed By: 07/08/25921 DD/ 8 TD/TT: Claim Professional: [facility] Radiology Study observation (narrative) [facility] US OB BPP W NON-STRESS Ordered By: Radiologist Radiology on 07-08-2025 [facility] Work Phone: US OB BPP W NON-STRESS on 07-01-2025 [place] [address] Ultrasound Report Signed Patient: ANGELA REYES MR#: [id number] : 1990 Acct:[id number] Age/Sex: 35 / F ADM Date: 07/01/25 Loc: US Attending Dr: Ángel Buckner D.O. Ordering Physician: Ángel Buckner D.O. Date of Service: 07/01/25 Procedure(s): US OB BPP w non-stress Accession Number(s): [id number] cc: Robles Charles D.O.; Ángel Buckner D.O. [place] [id number] Patient Name: ANGELA REYES MRN: [id number] date: 1990 Sex: F Assigned Patient Location: [facility] Current Patient Location: Accession/Order Number: [id number] Exam Date: 07/01/2025 20:05 Report Date: 07/01/2025 [...] Yusuf M.D. 07/01/2025 8:07 PM Dictation Location: [place] [address] Electronically authenticated by: [id number] Y Date: 07/01/2025 20:07 Dictated By: Roddy Yusuf M.D. Signed By: 07/01/252008 DD/ 06 TD/TT: Claim Professional: [facility] RadiologyNeelimaogbrittanie pa MD - 07/01/2025 The [place], [place] [address] Ultrasound Report Signed Patient: ANGELA REYES MR#: [id number] : 1990 Acct:[id number] Age/Sex: 35 / F ADM Date: 07/01/25 Loc: US Attending Dr: Ángel Buckner D.O. Ordering Physician: Ángel Buckner D.O. Date of Service: 07/01/25 Procedure(s): US OB BPP w non-stress Accession Number(s): [id number] cc: Robles Charles D.O.; Ángel Buckner D.O. The [place] [address] Patient Name: ANGELA REYES MRN: [facility]:[id number] date: 1990 Sex: F Assigned Patient Location: [facility] Current Patient Location: Accession/Order Number: [id number] Exam Date: 07/01/2025 20:05 Report Date: 07/01/2025 [...] Yusuf M.D. 07/01/2025 8:07 PM Dictation Location: [place] [address] Electronically authenticated by: [id number] Y Date: 07/01/2025 20:07 Dictated By: Roddy Yusuf M.D. Signed By: 07/01/252008 DD/ 06 TD/TT: Claim Professional: [facility] Radiology Study observation (narrative) [facility] US OB BPP W NON-STRESS Ordered By: Radiologist Radiology on 07-01-2025 [facility] Work Phone: US OB FOLLOW [...] II, MD, PHD at 26-Jun-2025 11:42:39 PM [facility] Normal Not Available Comment on above: Order Comment: US OB SCAN FOR GROWTH Estimated Date of Delivery: 08/09/25 Gestational Age as of 06/12/2025: 31w5d Urinalysis macro (dipstick) panel (U)on 06-26-2025 Bilirubin, UA Negative Negative - 4(70) +++ mg/dL [facility] Blood, UA Negative Negative - 50 Ezequiel/mcL [facility] Clarity, UA Clear [facility] Color, UA Yellow [facility] Glucose, UA Negative Negative - 1999(110) ++++ mg/dL [facility] Interpretation and review of laboratory results Normal [facility] Ketones, UA Negative Negative - 160(16) ++++ mg/dL [facility] Leukocytes, UA Negative Negative - 500+++ Jason/mcL [facility] Nitrite, UA Negative Negative - Positive [facility] pH, UA 6.5 5 - 9 [facility] Protein, UA Negative Negative - 1999(20) ++++ mg/dL [facility] Spec Grav, UA 1.01 1 - 1.03 [facility] Urobilinogen, UA 1.0 0.2 - 12 mg/dL [facility] US OB BPP W NON-STRESS on 06-24-2025 [place] [address] Ultrasound Report Signed Patient: ANGELA REYES MR#: [id number] : 1990 Acct:[id number] Age/Sex: 35 / F ADM Date: 06/24/25 Loc: US Attending Dr: Ángel Buckner D.O. Ordering Physician: Ángel Buckner D.O. Date of Service: 06/24/25 Procedure(s): US OB BPP w non-stress Accession Number(s): [id number] cc: Robles Charles D.O.; Ángel Buckner D.O. [place] [id number] Patient Name: ANGELA REYES MRN: [facility]:[id number] date: 1990 Sex: F Assigned Patient Location: US Current Patient Location: Accession/Order Number: [id number] Exam Date: 06/24/2025 09:33 Report Date: 06/24/2025 09:34 At the request of: ÁNGEL BUCKNER DO Procedure: US OB BPP w non-stress Biophysical profile. Reason for exam: History of miscarriage COMPARISON: 06/17/2025 TECHNIQUE: Transabdominal imaging of the gravid uterus was obtained. FINDINGS: The teletypewriter installer reports a BPP of 8 out of 8. MARTY is normal at 15 cm. heart rate 130 bpm. US/US OB BPP w non-stress IMPRESSION: BPP 8 out of 8. Impression dictated by: Justin Mack Jr., D.O. 06/24/2025 9:34 AM Dictation Location: [facility] Electronically authenticated by: [id number] Y Date: 06/24/2025 09:34 Dictated By: Justin Mack M.D. Signed By: 06/24/2536 DD/ 3 TD/TT: Claim Professional: [facility] RadiologyNeelimaogbrittanie pa MD - 06/24/2025 [place] [address] Ultrasound Report Signed Patient: ANGELA REYES MR#: [id number] : 1990 Acct:[id number] Age/Sex: 35 / F ADM Date: 06/24/25 Loc: US Attending Dr: Ángel Buckner D.O. Ordering Physician: Ángel Buckner D.O. Date of Service: 06/24/25 Procedure(s): US OB BPP w non-stress Accession Number(s): [id number] cc: Robles Charles D.O.; Ángel Buckner D.O. The [place] [address] Patient Name: ANGELA REYES MRN: [facility]:[id number] date: 1990 Sex: F Assigned Patient Location: US Current Patient Location: Accession/Order Number: [id number] Exam Date: 06/24/2025 09:33 Report Date: 06/24/2025 09:34 At the request of: ÁNGEL BUCKNER DO Procedure: US OB BPP w non-stress Biophysical profile. Reason for exam: History of miscarriage COMPARISON: 06/17/2025 TECHNIQUE: Transabdominal imaging of the gravid uterus was obtained. FINDINGS: The teletypewriter installer reports a BPP of 8 out of 8. MARTY is normal at 15 cm. heart rate 130 bpm. US/US OB BPP w non-stress IMPRESSION: BPP 8 out of 8. Impression dictated by: Justin Mack Jr., D.O. 06/24/2025 9:34 AM Dictation Location: [place] [address] Electronically authenticated by: [id number] Y Date: 06/24/2025 09:34 Dictated By: Justin Mack M.D. Signed By: 06/24/2536 DD/ 3 TD/TT: Claim Professional: [facility] Radiology Study observation (narrative) [facility] US OB BPP W NON-STRESS Ordered By: Radiologist Radiology on 06-24-2025 [facility] [email or web address] Work Phone: US OB BPP W NON-STRESS on 06-17-2025 [place] [address] Ultrasound Report Signed Patient: ANGELA REYES MR#: [id number] : 1990 Acct:[id number] Age/Sex: 35 / F ADM Date: 06/17/25 Loc: [place] [address]: Ángel Buckner D.O. Ordering Physician: Ángel Buckner D.O. Date of Service: 06/17/25 Procedure(s): US OB BPP w non-stress Accession Number(s): [id number] cc: Robles Charles D.O.; Ángel Buckner D.O. The [place] [address] Patient Name: ANGELA REYES MRN: [id number]:[id number] date: 1990 Sex: F Assigned Patient Location: [facility] Current Patient Location: [facility] Accession/Order Number: [id number] Exam Date: 06/17/2025 09:17 Report Date: 06/17/2025 [...] Ramachandran M.D. 06/17/2025 9:20 AM Dictation Location: [place] [address] Electronically authenticated by: [id number] Y Date: 06/17/2025 09:20 Dictated By: Carlton Ramachandran M.D. Signed By: 06/17/25921 DD/ 9 TD/TT: Claim Professional: [facility] Radiology Radiologbrittanie pa MD - 06/17/2025 [place] [address] Ultrasound Report Signed Patient: ANGELA REYES MR#: [id number] : 1990 Acct:[id number] Age/Sex: 35 / F ADM Date: 06/17/25 Loc: [facility] 250-[address]: Ángel Buckner D.O. Ordering Physician: Ángel Buckner D.O. Date of Service: 06/17/25 Procedure(s): US OB BPP w non-stress Accession Number(s): [id number] cc: Robles Charles D.O.; Ángel Buckner D.O. The [address] [address] Patient Name: ANGELA REYES MRN: [facility]:[id number] date: 1990 Sex: F Assigned Patient Location: [facility] Current Patient Location: [facility] Accession/Order Number: [id number] Exam Date: 06/17/2025 09:17 Report Date: 06/17/2025 [...] Ramachandran M.D. 06/17/2025 9:20 AM Dictation Location: [place] [address] Electronically authenticated by: [id number] Y Date: 06/17/2025 09:20 Dictated By: Carlton Ramachandran M.D. Signed By: 06/17/25921 DD/ 9 TD/TT: Claim Professional: [facility] Radiology Study observation (narrative) [facility] US OB BPP W NON-STRESS Ordered By: Radiologist Radiology on 06-17-2025 [facility] Work Phone: US OB BPP W NON-STRESS on 06-10-2025 [place] [address] Ultrasound Report Signed Patient: ANGELA REYES MR#: [id number] : 1990 Acct:[id number] Age/Sex: 35 / F ADM Date: 06/10/25 Loc: US Attending Dr: Ángel Buckner D.O. Ordering Physician: Ángel Buckner D.O. Date of Service: 06/10/25 Procedure(s): US OB BPP w non-stress Accession Number(s): [id number] cc: Robles Charles D.O.; Ángel Buckner D.O. [place] [address] Patient Name: ANGELA REYES MRN: [facility]:[id number] date: 1990 Sex: F Assigned Patient Location: [facility] Current Patient Location: Accession/Order Number: [id number] Exam Date: 06/10/2025 18:36 Report Date: 06/10/2025 [...] Yusuf M.D. 06/10/2025 6:38 PM Dictation Location: [place] [address] Electronically authenticated by: [id number] Y Date: 06/10/2025 18:38 Dictated By: Roddy Yusuf M.D. Signed By: 06/10/251840 DD/ 37 TD/TT: Claim Professional: [facility] Radiology, Radiologi MD ember - 06/10/2025 [place] [address] Ultrasound Report Signed Patient: ANGELA REYES MR#: [id number] : 1990 Acct:[id number] Age/Sex: 35 / F ADM Date: 06/10/25 Loc: US Attending Dr: Ángel Buckner D.O. Ordering Physician: Ángel Buckner D.O. Date of Service: 06/10/25 Procedure(s): US OB BPP w non-stress Accession Number(s): [id number] cc: Robles Charles D.O.; Ángel Buckner D.O. The [place] [address] Patient Name: ANGELA REYES MRN: [facility]:[id number] date: 1990 Sex: F Assigned Patient Location: [facility] Current Patient Location: Accession/Order Number: [id number] Exam Date: 06/10/2025 18:36 Report Date: 06/10/2025 [...] Yusuf M.D. 06/10/2025 6:38 PM Dictation Location: [place] [address] Electronically authenticated by: [id number] Y Date: 06/10/2025 18:38 Dictated By: Roddy Yusuf M.D. Signed By: 06/10/25 184 DD/ 37 TD/TT: Claim Professional: [facility] Radiology Study observation (narrative) [facility] US OB BPP W NON-STRESS Ordered By: Radiologist Radiology on 06-10-2025 [facility] Work Phone: US OB BPP W NON-STRESS on 06-03-2025 [place] [address] Ultrasound Report Signed Patient: ANGELA REYES MR#: [id number] : 1990 Acct:[id number] Age/Sex: 35 / F ADM Date: 06/03/25 Loc: US Attending Dr: nÁgel Buckner D.O. Ordering Physician: Ángel Buckner D.O. Date of Service: 06/03/25 Procedure(s): US OB BPP w non-stress Accession Number(s): [id number] cc: Robles Charles D.O.; Ángel Buckner D.O. [place] [address] Patient Name: ANGELA REYES MRN: [facility]:[id number] date: 1990 Sex: F Assigned Patient Location: [facility] Current Patient Location: Accession/Order Number: [id number] Exam Date: 06/03/2025 14:22 Report Date: 06/03/2025 [...] Durand M.D. 06/03/2025 2:23 PM Dictation Location: [place] [address] Electronically authenticated by: [id number] Y Date: 06/03/2025 14:23 Dictated By: Aguilar Durand D.O. Signed By: 06/03/25 1425 DD/ 142 TD/TT: Claim Professional: [facility] Radiology, Radiologi MD ember - 06/03/2025 [place] [address] Ultrasound Report Signed Patient: ANGELA REYES MR#: [id number] : 1990 Acct:[id number] Age/Sex: 35 / F ADM Date: 06/03/25 Loc: US Attending Dr: Ángel Buckner D.O. Ordering Physician: Ángel Buckner D.O. Date of Service: 06/03/25 Procedure(s): US OB BPP w non-stress Accession Number(s): [id number] cc: Robles Charles D.O.; Ángel Buckner D.O. The [address] [address] Patient Name: ANGELA REYES MRN: [facility]:[id number] date: 1990 Sex: F Assigned Patient Location: [facility] Current Patient Location: Accession/Order Number: [id number] Exam Date: 06/03/2025 14:22 Report Date: 06/03/2025 [...] Durand M.D. 06/03/2025 2:23 PM Dictation Location: [employer] Electronically authenticated by: [id number] Y Date: 06/03/2025 14:23 Dictated By: Aguilar Durand D.O. Signed By: 06/03/255 DD/ 22 TD/TT: Claim Professional: [facility] Radiology Study observation (narrative) [facility] US OB BPP W NON-STRESS Ordered By: Radiologist Radiology on 06-03-2025 [facility] Work Phone: Urinalysis macro (dipstick) panel (U)on 05-30-2025 Bilirubin, UA Negative Negative - 4(70) +++ mg/dL [facility] Blood, UA Negative Negative - 50 Ezequiel/mcL [facility] Clarity, UA Clear [facility] Color, UA Yellow [facility] Glucose, UA Negative Negative - 2000(110) ++++ mg/dL [facility] Interpretation and review of laboratory results Normal [facility] Ketones, UA Negative Negative - 160(16) ++++ mg/dL [facility] Leukocytes, UA Negative Negative - 500+++ Jason/mcL [facility] Nitrite, UA Negative Negative - Positive [facility] pH, UA 5.5 5 - 9 [facility] Protein, UA Negative Negative - 2000(20) ++++ mg/dL [facility] Spec Grav, UA 1.02 1 - 1.03 [facility] Urobilinogen, UA 1.0 0.2 - 12 mg/dL [facility] US OB GROWTHon 05-11-[address] [place] [address] Ultrasound Report Signed Patient: ANGELA REYES MR#: [id number] : 1990 Acct:[id number] Age/Sex: 35 / F ADM Date: 05/11/25 Loc: US Attending Dr: Edson Dewitt Ordering Physician: Edson Dewitt Date of Service: 05/11/25 Procedure(s): US OB growth Accession Number(s): [id number] cc: Robles Charles D.O.; Edson Dewitt [address] [address] Patient Name: ANGELA REYES MRN: [facility]:[id number] date: 1990 Sex: F Assigned Patient Location: US Current Patient Location: US Accession/Order Number: [id number] Exam Date: 05/11/2025 14:38 Report Date: 05/11/2025 [...] Jr., D.O. 05/11/2025 2:40 PM Dictation Location: [place] [address] Electronically authenticated by: [id number] Y Date: 05/11/2025 14:40 Dictated By: Justin Mack M.D. Signed By: 05/11/25 1442 DD/ 1440 TD/TT: Claim Professional: [facility] Radiology, Radiologbrittanie pa MD - 05/11/[address] [address] Ultrasound Report Signed Patient: ANGELA REYES MR#: [id number] : 1990 Acct:[id number] Age/Sex: 35 / F ADM Date: 05/11/25 Loc: US Attending Dr: Edson Dewitt Ordering Physician: Edson Dewitt Date of Service: 05/11/25 Procedure(s): US OB growth Accession Number(s): [id number] cc: Robles Charles D.O.; Edson Dewitt [place] [phone] Patient Name: ANGELA REYES MRN: [id number] date: 1990 Sex: F Assigned Patient Location: US Current Patient Location: US Accession/Order Number: [id number] Exam Date: 05/11/2025 14:38 Report Date: 05/11/2025 14:40 At the request of: EDSON DEWTIT Procedure: US OB growth Growth ultrasound. Reason for exam: size. COMPARISON: Ultrasound 03/20/2025. TECHNIQUE: Transabdominal imaging of the gravid uterus was obtained. FINDINGS: Single live intrauterine 28 weeks 1 day by anatomic measurements. Appropriate growth by dating. Estimated weight is 1190 g which is the 80th percentile. heart rate 1 54 bpm. position is cephalic at time of scanning. MRATY is normal at 13.5 cm. US/US OB growth IMPRESSION: Single live intrauterine 28 weeks 1 day by anatomic measurements. Appropriate growth. Impression dictated by: Justin Mack Jr., D.O. 05/11/2025 2:40 PM Dictation Location: [place] [address] Electronically authenticated by: [id number] Y Date: 05/11/2025 14:40 Dictated By: Justin Mack M.D. Signed By: 05/11/25 144 DD/ 1440 TD/TT: Claim Professional: [facility] Radiology Study observation (narrative) [facility] OB GROWTHOrdered By: Reg ologist Radiology on 05-11-2025 [facility] Work Phone: ALL CBC WITH AUTO DIFFon BASOPHILS ABSOLUTE AUTO 0 [facility] Basophils/100 WBC (Bld) 0.2 % 0.2 - 2.0 % [facility] Eosinophils/100 WBC (Bld) 1.2 % 0.9 - 7.0 % [facility] Erythrocyte distribution width (RBC) [Ratio] 13.2 % 11.0 - 15.0 % [facility] Hematocrit (Bld) [Volume fraction] 31.9 % Low 36.0 - 48.0 % [facility] Hemoglobin (Bld) [Mass/Vol] 10.6 g/dL Low 12.0 - 16.0 g/dL [facility] IMMATURE GRANULOCYTES ABS AUTO 0.06 High [facility] Immature granulocytes/100 WBC (Bld) 0.6 % High 0.0 - 0.5 % [facility] Interpretation and review of laboratory results Abnormal [facility] LYMPHOCYTES ABSOLUTE AUTO 1.6 [facility] Lymphocytes/100 WBC (Bld) 15.6 % Low 20.5 - 60.0 % [facility] MCH (RBC) [Entitic mass] 32.6 pg 26.7 - 34.0 pg [facility] MCHC (RBC) [Mass/Vol] 33.2 g/dL 29.9 - 35.2 g/dL [facility] MCV (RBC) [Entitic vol] 98.2 fL 81.0 - 99.0 fL [facility] MONOCYTES ABSOLUTE AUTO 0.6 [facility] Monocytes/100 WBC (Bld) 6 % 1.7 - 12.0 % [facility] NEUTROPHILS ABSOLUTE AUTO 7.7 High [facility] Neutrophils/100 WBC (Bld) 76.4 % High 43.0 - 75.0 % [facility] Platelet mean volume (Bld) [Entitic vol] 9 fL Low 9.5 - 13.5 fL [facility] TBH EO # 0.1 [facility] TBH PLT 313 [facility] TB RBC 3.25 Low [facility] TB WBC 10.1 [facility] GLUCOSE 1 HOURon 04-18-2025 Glucose [Mass/Vol] 96 mg/dL NINF - 13 0 mg/dL [facility] No Panel Informationon 04-18 [facility] US OB LIMITED 1+ FETUSESon [...] II, MD, PHD at 21-Apr-2025 12:15:[address] [facility] Normal Not Available Comment on above: Order Comment: US OB INCOMPLETE ANATOMY W US OB TRANSVAGINAL Estimated Date of Delivery: 08/09/25 Gestational Age as of 03/30/2025: 21w1d Urinalysis macro (dipstick) panel (U)on 03-30-2025 Bilirubin, UA Negative Negative - 4(70) +++ mg/dL [facility] Blood, UA Negative Negative - 50 Ezequiel/mcL [facility] Clarity, UA Clear [facility] Color, UA Yellow [facility] Glucose, UA Negative Negative - 2000(110) ++++ mg/dL [facility] Interpretation and review of laboratory results Normal [facility] Ketones, UA Negative Negative - 160(16) ++++ mg/dL [facility] Leukocytes, UA Negative Negative - 500+++ Jason/mcL [facility] Nitrite, UA Negative Negative - Positive [facility] pH, UA 7 5 - 9 [facility] Protein, UA Negative Negative - 2000(20) ++++ mg/dL [facility] Spec Grav, UA 1.02 1 - 1.03 [facility] Urobilinogen, UA 0.2 0.2 - 12 mg/dL [facility] US OB ANATOMYon 03-21-2025 [facility] [address] [place] [address] Ultrasound Report Signed Patient: ANGELA REYES MR#: [id number] : 1990 Acct:[id number] Age/Sex: 35 / F ADM Date: 03/20/25 Loc: US Attending Dr: Deisy Villar Ordering Physician: Deisy Villar Date of Service: 03/20/25 Procedure(s): US OB anatomy Accession Number(s): [id number] cc: Deisy Villar; Robles Charles D.O. [place] [phone] Patient Name: ANGELA REYES MRN: [facility]:[id number] date: 1990 Sex: F Assigned Patient Location: US Current Patient Location: Accession/Order Number: [id number] Exam Date: 03/21/2025 13:12 Report Date: 03/21/2025 [...] Aguilar Durand M.D.03/21/2025 1:16 PM Dictation Location: [employer] Electronically authenticated by: [id number] Y Date: 03/21/2025 13:16 Dictated By: Aguilar Durand D.O. Signed By: 03/21/25 1319 DD/ 15 TD/TT: Claim Professional: [facility] RadiologyTyrese MD - 03/21/2025 [place] [address] Ultrasound Report Signed Patient: ANGELA REYES MR#: [id number] : 1990 Acct:[id number] Age/Sex: 35 / F ADM Date: 03/20/25 Loc: US Attending Dr: Deisy Villar Ordering Physician: Deisy Villar Date of Service: 03/20/25 Procedure(s): US OB anatomy Accession Number(s): [id number] cc: Deisy Villar; Robles Charles D.O. The [address] [address] Patient Name: ANGELA REYES MRN: [facility]:[id number] date: 1990 Sex: F Assigned Patient Location: US Current Patient Location: Accession/Order Number: [id number] Exam Date: 03/21/2025 13:12 Report Date: 03/21/2025 [...] Aguilar Durand M.D.03/21/2025 1:16 PM Dictation Location: [employer] Electronically authenticated by: [id number] Y Date: 03/21/2025 13:16 Dictated By: Aguilar Durand D.O. Signed By: 03/21/25 1319 DD/ 15 TD/TT: Claim Professional: [facility] Radiology Study observation (narrative) [facility] US OB ANATOMYOrdered By: Chepe iologdarwin Radiology on 03-21-2025 [facility] Work Phone: US OB CERVICAL LENGTHon 03-01 [place] [id number] Ultrasound Report Signed Patient: ANGELA REYES MR#: [id number] : 1990 Acct:[id number] Age/Sex: 35 / F ADM Date: 03/20/25 Loc: US Attending Dr: Deisy Villar Ordering Physician: Deisy Villar Date of Service: 03/20/25 Procedure(s): US OB cervical length Accession Number(s): [id number] cc: Deisy Villar; Robles Charles D.O. The [address] [address] Patient Name: ANGELA REYES MRN: [facility]:[id number] date: 1990 Sex: F Assigned Patient Location: US Current Patient Location: Accession/Order Number: [id number] Exam Date: 03/21/2025 09:18 Report Date: 03/21/2025 09:19 At the request of: DEISY VILLAR Procedure: US OB cervical length Ultrasound assessment of the cervical length The cervical length is 3.8 cm. The cervical os is closed. US/US OB cervical length IMPRESSION: #3.8 cm cervical length. Impression dictated by: Aguilar Durand M.D.03/21/2025 9:19 AM Dictation Location: [employer] Electronically authenticated by: [id number] Y Date: 03/21/2025 09:19 Dictated By: Aguilar Durand D.O. Signed By: 03/21/25921 DD/ 8 TD/TT: Claim Professional: [facility] RadiologyNeelimaogbrittanie pa MD - 03/21/2025 [place] [address] Ultrasound Report Signed Patient: ANGELA REYES MR#: [id number] : 1990 Acct:[id number] Age/Sex: 35 / F ADM Date: 03/20/25 Loc: US Attending Dr: Deisy Villar Ordering Physician: Deisy Villar Date of Service: 03/20/25 Procedure(s): US OB cervical length Accession Number(s): [id number] cc: Deisy Villar; Robles Charles D.O. The [place] [phone] Patient Name: ANGELA REYES MRN: [facility]:[id number] date: 1990 Sex: F Assigned Patient Location: US Current Patient Location: Accession/Order Number: [id number] Exam Date: 03/21/2025 09:18 Report Date: 03/21/2025 09:19 At the request of: DEISY VILLAR Procedure: US OB cervical length Ultrasound assessment of the cervical length The cervical length is 3.8 cm. The cervical os is closed. US/US OB cervical length IMPRESSION: #3.8 cm cervical length. Impression dictated by: Aguilar Durand M.D.03/21/2025 9:19 AM Dictation Location: [employer] Electronically authenticated by: [id number] Y Date: 03/21/2025 09:19 Dictated By: Aguilar Durand D.O. Signed By: 03/21/25921 DD/ 8 TD/TT: Claim Professional: [facility] Radiology Study observation (narrative) [facility] US OB CERVICAL LENGTHOrdered By: Radiologist Radiology on 03-21-2025 [facility] Work Phone: IGP,APTIMA HPV,AGE GDLNon AGE GDLN ACOG TESTING Note . [facility] Comment on above: TESTS RESULT FLAG U NITS REF RANGE LAB Clinician Provided Cytology Information Source.............Cervix Other.............. No. of containers..01 ThinPrep Vial Age Algo ACOG Lara... 30-65 01 FLAG LEGEND: L-Low Normal,H-High Normal,LL-Alert Low,HH-Alert High <-Panic Low,>-Panic High,A-Abnormal,AA-Critical Abnormal Performed at: 01 =G [address] [address] Ilana Heath MD, HPV APTIMA Negative Negative [facility] Comment on above: This nucleic acid am plification test detects fourteen high- risk HPV types (16,18,31,33,35,39,45,51,52,56,58,59,66,68) without differentiation. Performed at: =G - [facility] [address], [place] [id number] Recovery Coordinator: Ilana Heath MD, Phone: [phone] Performed at: - [facility], [place] [id number] Recovery Coordinator: Ialna Heath MD, Phone: [phone] IGP, APTIMA HPV, RFX 16/18,45 Note . [facility] Comment on above: TESTS RESULT FLAG UN ITS REF RANGE LAB DIAGNOSIS: 02 NEGATIVE FOR INTRAEPITHELIAL LESION OR MALIGNANCY. THIS SPECIMEN WAS RESCREENED PART OF OUR MACHINE FITTER PROGRAM. Specimen adequacy: 02 Satisfactory for evaluation. No endocervical component is identified. Performed by: 03 Eugenia Kennedy, Batch Mixing Truck Driver (ASCP) QC reviewed by: 02 Meredith Chávez, Communications Tower Climber . 02 Note: Note 02 The Pap [...] High,A-Abnormal,AA-Critical Abnormal Performed at: 02 [address] [facility] [address] [address] Ilana Heath MD, 03 [facility] [address] [place] [address] Lloyd Kim MD, SPATULA-[facility]ONE [facility] RECURRENT VAGINITIS (HTRX)on 03-03-2025 ATOPOBIUM VAGINAE 0 [facility] Healthcare ATOPOBIUM VAGINAE Not detected [facility] BVAB 2,3 (BACTERIAL VAGINOSIS ASSOCIATED BACTERIA 2, 3); MOBILUNCUS SPP 0 [facility] BVAB 2,3 (BACTERIAL VAGINOSIS ASSOCIATED BACTERIA 2, 3); MOBILUNCUS SPP Not detected [facility] ANEUDY ALBICANS, PARAPSILOSIS, TROPICALIS 0 [facility] ANEUDY ALBICANS, PARAPSILOSIS, TROPICALIS Not detected [facility] ANEUDY GLABRATA 0 [facility] ANEUDY GLABRATA Not detected [facility] ANEUDY KRUSEI 0 [facility] Healthcare ANEUDY KRUSEI Not detected [facility] CHLAMYDIA TRACHOMATIS 0 [facility] S Healthcare CHLAMYDIA TRACHOMATIS Not detected N [facility] GARDNERELLA VAGINALIS 0 [facility] S Healthcare GARDNERELLA VAGINALIS Not detected N [facility] MEGASPHAERA (TYPES 1, 2) 0 [facility] Healthcare MEGASPHAERA (TYPES 1, 2) Not detected [facility] MYCOPLASMA GENITALIUM 0 [facility] S Healthcare MYCOPLASMA GENITALIUM Not detected N [facility] Healthcare NEISSERIA GONORRHOEAE 0 [facility] S [facility] NEISSERIA GONORRHOEAE Not detected N S [facility] TRICHOMONAS VAGINALIS 0 [facility] S [facility] TRICHOMONAS VAGINALIS Not detected [facility] Healthcare Urinalysis macro (dipstick) panel (U)on 03-02-2025 Bilirubin, UA Negative Negative - 4(70) +++ mg/dL [facility] Blood, UA Negative Negative - 50 Ezequiel/mcL [facility] Clarity, UA Clear [facility] Color, UA Yellow [facility] Glucose, UA Negative Negative - 2000(110) ++++ mg/dL [facility] Interpretation and review of laboratory results Normal [facility] Ketones, UA Negative Negative - 160(16) ++++ mg/dL [facility] Leukocytes, UA Negative Negative - 500+++ Jason/mcL [facility] Nitrite, UA Negative Negative - Positive [facility] pH, UA 7 5 - 9 [facility] Protein, UA Negative Negative - 1999(20) ++++ mg/dL [facility] Spec Grav, UA 1.02 1 - 1.03 [facility] Urobilinogen, UA 0.2 0.2 - 12 mg/dL [facility] Urinalysis macro (dipstick) panel (U)on 02-02-2025 Bilirubin, UA Negative Negative - 4(70) +++ mg/dL [facility] Blood, UA Negative Negative - 50 Ezequiel/mcL [facility] Clarity, UA Clear [facility] Color, UA Yellow [facility] Glucose, UA Negative Negative - 1999(110) ++++ mg/dL [facility] Interpretation and review of laboratory results Abnormal [facility] Ketones, UA Negative Negative - 160(16) ++++ mg/dL [facility] Leukocytes, UA Trace Negative - 500+++ Jason/mcL [facility] Nitrite, UA Negative Negative - Positive [facility] pH, UA 6 5 - 9 [facility] Protein, UA Negative Negative - 1999(20) ++++ mg/dL [facility] Spec Grav, UA 1.025 1 - 1.03 [facility] Urobilinogen, UA 0.2 0.2 - 12 mg/dL [facility] ALL CBC WITH AUTO DIFFon BASOPHILS ABSOLUTE AUTO 0 [facility] Basophils/100 WBC (Bld) 0.4 % 0.2 - 2.0 % [facility] Eosinophils/100 WBC (Bld) 2.2 % 0.9 - 7.0 % [facility] Erythrocyte distribution width (RBC) [Ratio] 12.5 % 11.0 - 15.0 % [facility] Hematocrit (Bld) [Volume fraction] 34 % Low 36.0 - 48.0 % [facility] Hemoglobin (Bld) [Mass/Vol] 11.7 g/dL Low 12.0 - 16.0 g/dL [facility] IMMATURE GRANULOCYTES ABS AUTO 0.03 [facility] Immature granulocytes/100 WBC (Bld) 0.4 % 0.0 - 0.5 % [facility] Interpretation and review of laboratory results Abnormal [facility] LYMPHOCYTES ABSOLUTE AUTO 1.6 [facility] Lymphocytes/100 WBC (Bld) 20.4 % Low 20.5 - 60.0 % [facility] MCH (RBC) [Entitic mass] 31.5 pg 26.7 - 34.0 pg [facility] MCHC (RBC) [Mass/Vol] 34.4 g/dL 29.9 - 35.2 g/dL [facility] MCV (RBC) [Entitic vol] 91.6 fL 81.0 - 99.0 fL [facility] MONOCYTES ABSOLUTE AUTO 0.6 [facility] Monocytes/100 WBC (Bld) 7.2 % 1.7 - 12.0 % [facility] NEUTROPHILS ABSOLUTE AUTO 5.6 [facility] Neutrophils/100 WBC (Bld) 69.4 % 43.0 - 75.0 % [facility] Platelet mean volume (Bld) [Entitic vol] 9.6 fL 9.5 - 13.5 fL [facility] TBH EO # 0.2 [facility] TB PLT 302 [facility] TB RBC 3.71 Low [facility] WBC 8 [facility] US OB TRANSVAGINALon 025 US [...] II, MD, PHD at 09-Jan-2025 09:10:54 AM [facility] Normal Not Available Comment on above: Order Comment: US OB TRANSVAGINAL No LMP recorded. [facility] PREG QUANT HCGon 025 HCG QUANTITATIVE 33584 mIU/mL [facility] Comment on above: 5-50 0.2-1 WEEK 50-500 1-2 WEEKS 100-5,000 2-3 WEEKS 500-10,000 3-4 WEEKS 1,000-50,000 4-5 WEEKS 10,000-100,000 5-6 WEEKS 15,000-200,000 6-8 WEEKS 10,000-100,000 2-[facility] HCGon 025 HCG QUANTITATIVE 98762 mIU/mL [facility] Comment on above: 5-50 0.2-1 WEEK 50-500 1-2 WEEKS 100-5,000 2-3 WEEKS 500-10,000 3-4 WEEKS 1,000-50,000 4-5 WEEKS 10,000-100,000 5-6 WEEKS 15,000-200,000 6-8 WEEKS 10,000-100,000 2[facility]ophil %Ordered By: Delano Francis on 09-22-2024 Basophils/100 WBC (Bld) 0.6 % Normal . [facility] Comment on above: Performed By: #### D HEAS, LC T4, [id number], SEROTON, TEST F + T, T3R, THYGLOB AB, ESTRADIOL, TPO, SHBG, ESTRONE, INSULIN, PROG #### [facility] , #### T4F, TRISTEN, TSH3, A1C WTH eA, FILIBERTO, GLU, T3F #### [address] Automated basophil countOrde red By: Delano Francis on 09-22-2024 Basophils (Bld) [#/Vol] 0.0 10*3/uL Normal 0.0-0.2 [facility] Comment on above: Result Comment: PERF ORMED BY: [place] [address] PATHOLOGIST [employer] JOSE GOEL M.D. Performed By: #### D HEAS, LC T4, [id number], SEROTON, TEST F + T, T3R, THYGLOB AB, ESTRADIOL, TPO, SHBG, ESTRONE, INSULIN, PROG #### [facility] , #### T4F, TRISTEN, TSH3, A1C WTH eA, FILIBERTO, GLU, T3F #### [address] Automated blood monocyte cou ntOrdered By: Delano Francis on 09-22-2024 Monocytes (Bld) [#/Vol] 0.4 10*3/uL Normal 0.0-0.8 [facility] Comment on above: Performed By: #### D HEAS, LC T4, [id number], SEROTON, TEST F + T, T3R, THYGLOB AB, ESTRADIOL, TPO, SHBG, ESTRONE, INSULIN, PROG #### [facility] , #### T4F, TRISTEN, TSH3, A1C WTH eA, FILIBERTO, GLU, T3F #### [address] Automated eosinophil %Ordere d By: Delano Francis on 09-22-2024 Eosinophils/100 WBC (Bld) 1.7 % Normal . [facility] Comment on above: Performed By: #### D HEAS, LC T4, [id number], SEROTON, TEST F + T, T3R, THYGLOB AB, ESTRADIOL, TPO, SHBG, ESTRONE, INSULIN, PROG #### [facility] , #### T4F, TRISTEN, TSH3, A1C WTH eA, FILIBERTO, GLU, T3F #### [address] Automated eosinophil countOr dered By: Delano Francis on 09-22-2024 Eosinophils (Bld) [#/Vol] 0.1 10*3/uL Normal 0.0-0.45 [facility] Comment on above: Performed By: #### D HEAS, LC T4, [id number], SEROTON, TEST F + T, T3R, THYGLOB AB, ESTRADIOL, TPO, SHBG, ESTRONE, INSULIN, PROG #### [facility] , #### T4F, TRISTEN, TSH3, A1C WTH eA, FILIBERTO, GLU, T3F #### [facility] [address] Automated monocyte %Ordered By: Delano Francis on 09-22-2024 Monocytes/100 WBC (Bld) 8.7 % Normal . [facility] Comment on above: Performed By: #### D DANIELLEAS, LC T4, [id number], SEROTON, TEST F + T, T3R, THYGLOB AB, ESTRADIOL, TPO, SHBG, ESTRONE, INSULIN, PROG #### [facility] , #### T4F, TRISTEN, TSH3, A1C WTH eA, FILIBERTO, GLU, T3F #### [facility] [address] [place] [address] Automated neutrophil %Ordere d By: Delano Francis on 09-22-2024 Neutrophils/100 WBC (Bld) 63.7 % Normal . [facility] Comment on above: Performed By: #### D HEAS, LC T4, [id number], SEROTON, TEST F + T, T3R, THYGLOB AB, ESTRADIOL, TPO, SHBG, ESTRONE, INSULIN, PROG #### [facility] , #### T4F, TRISTEN, TSH3, A1C WTH eA, FILIBERTO, GLU, T3F #### [address] Basophils Auto (Bld) [#/Vol] Ordered By: Delano Francis on 09-22-2024 Basophils (Bld) [#/Vol] Automated basophil count 0.0-0.2 [facility] Basophils/100 WBC Auto (Bld) Ordered By: Delano Francis on 09-22-2024 Basophils/100 WBC (Bld) Automated basophil % . [facility] Calcium [Mass/volume] in Ser um or PlasmaOrdered By: Delano Francis on 09-22-2024 Calcium [Mass/Vol] 9.4 mg/dL Normal 8.6-10.3 [facility] Comment on above: Performed By: #### D VENITA, LC T4, [id number], SEROTON, TEST F + T, T3R, THYGLOB AB, ESTRADIOL, TPO, SHBG, ESTRONE, INSULIN, PROG #### [facility] , #### T4F, TRISTEN, TSH3, A1C WTH eA, FILIBERTO, GLU, T3F #### [facility] [address] Calcium [Mass/Vol] Calcium [Mass/volume ] in Serum or Plasma 8.6-10.3 [facility] Carbon dioxide, total [Moles /volume] in Serum or PlasmaOrdered By: Delano Francis on 09-22-2024 CO2 [Moles/Vol] 29.2 mmol/L Normal 21.0-31.0 [facility] Comment on above: Performed By: #### D VENITA, LC T4, [id number], SEROTON, TEST F + T, T3R, THYGLOB AB, ESTRADIOL, TPO, SHBG, ESTRONE, INSULIN, PROG #### [facility] , #### T4F, TRISTEN, TSH3, A1C WTH eA, FILIBERTO, GLU, T3F #### [facility] [address] [place] [address] [place] CO2 [Moles/Vol] Carbon dioxide, tota l [Moles/volume] in Serum or Plasma 21.0-31.0 [facility] Chloride [Moles/volume] in S stevo or PlasmaOrdered By: Delano Francis on 09-22-2024 Chloride [Moles/Vol] 105 mmol/L Normal 98-[address] [facility] Comment on above: Performed By: #### D HEAS, LC T4, [id number], SEROTON, TEST F + T, T3R, THYGLOB AB, ESTRADIOL, TPO, SHBG, ESTRONE, INSULIN, PROG #### [facility] , #### T4F, TRISTEN, TSH3, A1C WTH eA, FILIBERTO, GLU, T3F #### [facility] [address] Chloride [Moles/Vol] Chloride [Moles/vol ume] in Serum or Plasma 98-107 [facility] Cholesterol [Mass/volume] in Serum or PlasmaOrdered By: Delano Francis on 09-22-2024 Cholesterol [Mass/Vol] 217 mg/dL High 140-200 [facility] Comment on above: Chol less than 200 m g/dl low riskChol 201-239 mg/dl borderline riskChol 240 mg/dl and greater high risk Result Comment: Chol less than 200 mg/dl low risk Chol 201-239 mg/dl borderline risk Chol 240 mg/dl and greater high risk Performed By: #### D HEAS, LC T4, [id number], SEROTON, TEST F + T, T3R, THYGLOB AB, ESTRADIOL, TPO, SHBG, ESTRONE, INSULIN, PROG #### [facility] , #### T4F, TRISTEN, TSH3, A1C WTH eA, FILIBERTO, GLU, T3F #### [facility] [address] Cholesterol [Mass/Vol] Cholesterol [Mass/volume] in Serum or Plasma High 140-200 [facility] Comment on above: Chol less than 200 m g/dl low riskChol 201-239 mg/dl borderline riskChol 240 mg/dl and greater high risk Cholesterol in HDL [Mass/vol ume] in Serum or PlasmaOrdered By: Delano Francis on 09-22-2024 Cholesterol in HDL [Mass/Vol] Serum or plasma high density lipoprotein (HDL) cholesterol measurement 23- [facility] Comment on above: HDL CHOL ATP-III CLA SSIFICATION Cardiovascular RiskHDL > or equal to 60 mg/dL LOWHDL < 40 mg/dL HIGH Cholesterol in LDL Calc [Mas s/Vol]Ordered By: Delano Francis on 09-22-2024 Cholesterol in LDL [Mass/Vol] 148 mg/dL High 0-100 [facility] Comment on above: LDL ATP III CLASSIFI CATIONLDL less than 100 mg/dL OptimalLDL 100-129 mg/dL Near or above optimalLDL 130-159 mg/dL Borderline highLDL 160-189 mg/dL HighLDL greater than 189 mg/dL Very high Cholesterol in LDL [Mass/Vol] Cholesterol in LDL [Mass/volume] in Serum or Plasma by calculation High 0-100 [facility] Comment on above: LDL ATP III CLASSIFI CATIONLDL less than 100 mg/dL OptimalLDL 100-129 mg/dL Near or above optimalLDL 130-159 mg/dL Borderline highLDL 160-189 mg/dL HighLDL greater than 189 mg/dL Very high Cholesterol in VLDL Calc [Ma ss/Vol]Ordered By: Delano Francis on 09-22-2024 Cholesterol in VLDL [Mass/Vol] 10 mg/dL [facility] Cholesterol in VLDL [Mass/Vol] Cholesterol in VLDL [Mass/volume] in Serum or Plasma by calculation [facility] Creatinine [Mass/volume] in Serum or PlasmaOrdered By: Delano Francis on 09-22-2024 Creatinine [Mass/Vol] 0.73 mg/dL Normal 0.60-1.20 [facility] Comment on above: Performed By: #### D JOSSE NATHAN T4, [id number], SEROTON, TEST F + T, T3R, THYGLOB AB, ESTRADIOL, TPO, SHBG, ESTRONE, INSULIN, PROG #### [facility] , #### T4F, TRISTEN, TSH3, A1C WTH eA, FILIBERTO, GLU, T3F #### [facility] [address] [place] [address] Creatinine [Mass/Vol] Creatinine [Mass/v olume] in Serum or Plasma 0.60-1.20 [facility] Employee Basic Metabolic [place] 09-22-2024 GFR/1.73 sq M.predicted MDRD (S/P/Bld) [Vol rate/Area] mL/min/{1.73_m2} Normal [facility] Comment on above: Performed By: #### D JOSSE NATHAN T4, [id number], SEROTON, TEST F + T, T3R, THYGLOB AB, ESTRADIOL, TPO, SHBG, ESTRONE, INSULIN, PROG #### [facility] , #### T4F, TRISTEN, TSH3, A1C WTH eA, FILIBERTO, GLU, T3F #### [facility] [address] Employee Complete Blood Coun ton 09-22-2024 Mean Corpuscular HGB Conc 34.2 g/dL Normal 32.0-35.0 [facility] Comment on above: Performed By: #### D HEAS, LC T4, [id number], SEROTON, TEST F + T, T3R, THYGLOB AB, ESTRADIOL, TPO, SHBG, ESTRONE, INSULIN, PROG #### [facility] , #### T4F, TRISTEN, TSH3, A1C WTH eA, FILIBERTO, GLU, T3F #### [address] NRBC% 0.0 /100{WBC} Normal 0-0.5 [facility] Comment on above: Performed By: #### D HEAS, LC T4, [id number], SEROTON, TEST F + T, T3R, THYGLOB AB, ESTRADIOL, TPO, SHBG, ESTRONE, INSULIN, PROG #### [facility] , #### T4F, TRISTEN, TSH3, A1C WTH eA, FILIBERTO, GLU, T3F #### [address] Employee Lipid Profileon LDL Cholesterol,Calculated 148 mg/dL High 0-100 [facility] Comment on above: Result Comment: LDL ATP III CLASSIFICATION LDL less than 100 mg/dL Optimal LDL 100-129 mg/dL Near or above optimal LDL 130-159 mg/dL Borderline high LDL 160-189 mg/dL High LDL greater than 189 mg/dL Very high Performed By: #### D HEAS, LC T4, [id number], SEROTON, TEST F + T, T3R, THYGLOB AB, ESTRADIOL, TPO, SHBG, ESTRONE, INSULIN, PROG #### [facility] , #### T4F, TRISTEN, TSH3, A1C WTH eA, FILIBERTO, GLU, T3F #### [address] Triglyceride w/Reflex 52 mg/dL Normal 0-149 [facility] Comment on above: Result Comment: TRIG ATP III CLASSIFICATION TRIG less than 150 mg/dL Normal TRIG 150-199 mg/dL Borderline high TRIG 200-500 mg/dL High TRIG greater than 500 mg/dL Very high Standard traceable to the Center for Disease Conrtrol and Prevention (CDC) test method. Performed By: #### D HEAS, LC T4, [id number], SEROTON, TEST F + T, T3R, THYGLOB AB, ESTRADIOL, TPO, SHBG, ESTRONE, INSULIN, PROG #### [facility] , #### T4F, TRISTEN, TSH3, A1C WTH eA, FILIBERTO, GLU, T3F #### [address] VLDL CHOLESTEROL 10 mg/dL Normal [facility] Comment on above: Performed By: #### D HEAS, LC T4, [id number], SEROTON, TEST F + T, T3R, THYGLOB AB, ESTRADIOL, TPO, SHBG, ESTRONE, INSULIN, PROG #### [facility] , #### T4F, TRISTEN, TSH3, A1C WTH eA, FILIBERTO, GLU, T3F #### [address] Employee Thyroid Stim [place] lon[place] 09-22-2024 Employee Thyroid Stim [employer] 2.30 u[iU]/mL Normal 0.45-5.33 [facility] Comment on above: Result Comment: PERF ORMED BY: [place] [address] PATHOLOGIST [employer]SEMBLER JOSE GOEL M.D. Performed By: #### D HEAS, LC T4, [id number], SEROTON, TEST F + T, T3R, THYGLOB AB, ESTRADIOL, TPO, SHBG, ESTRONE, INSULIN, PROG #### [facility] , #### T4F, TRISTEN, TSH3, A1C WTH eA, FILIBERTO, GLU, T3F #### [facility] [address] [place] [address] [place] Eosinophils Auto (Bld) [#/Vo l]Ordered By: Delano Francis on 09-22-2024 Eosinophils (Bld) [#/Vol] Automated eosinophil count 0.0-0.45 [facility] Eosinophils/100 WBC Auto (Bl d)Ordered By: Delano Francis on 09-22-2024 Eosinophils/100 WBC (Bld) Automated eosinophil % . [facility] Erythrocyte distribution wid th Auto (RBC) [Ratio]Ordered By: Delano Francis on 09-22-2024 Erythrocyte distribution width (RBC) [Ratio] Erythrocyte distribution width [Ratio] by Automated count 11.9-15.3 [facility] Erythrocyte distribution wid th [Ratio] by Automated countOrdered By: Delano Francis on 09-22-2024 Erythrocyte distribution width (RBC) [Ratio] 13.2 % Normal 11.9-15.3 [facility] Comment on above: Performed By: #### D HEAS, LC T4, [id number], SEROTON, TEST F + T, T3R, THYGLOB AB, ESTRADIOL, TPO, SHBG, ESTRONE, INSULIN, PROG #### [facility] , #### T4F, TRISTEN, TSH3, A1C WTH eA, FILIBERTO, GLU, T3F #### [facility] [address] Erythrocytes [#/volume] in B lood by Automated countOrdered By: Delano Francis on 09-22-2024 RBC (Bld) [#/Vol] 3.91 10*6/uL Normal 3.60-5.00 [facility] Comment on above: Performed By: #### D HEAS, LC T4, [id number], SEROTON, TEST F + T, T3R, THYGLOB AB, ESTRADIOL, TPO, SHBG, ESTRONE, INSULIN, PROG #### [facility] , #### T4F, TRISTEN, TSH3, A1C WTH eA, FILIBERTO, GLU, T3F #### [facility] [address] [place] [address] [place] Glucose [Mass/volume] in Ser um or PlasmaOrdered By: Delano Francis on 09-22-2024 Glucose [Mass/Vol] 83 mg/dL Normal 70-100 [facility] Comment on above: Performed By: #### D VENITA, LC T4, [id number], SEROTON, TEST F + T, T3R, THYGLOB AB, ESTRADIOL, TPO, SHBG, ESTRONE, INSULIN, PROG #### [facility] , #### T4F, TRISTEN, TSH3, A1C WTH eA, FILIBERTO, GLU, T3F #### [facility] [address] [place] [address] [place] Glucose [Mass/Vol] Glucose [Mass/volume ] in Serum or Plasma 70-100 [facility] Hematocrit Auto (Bld) [Volum e fraction]Ordered By: Delano Francis on 09-22-2024 Hematocrit (Bld) [Volume fraction] Hematocrit [Volume Fraction] of Blood by Automated count 34.0-46.4 [facility] Hematocrit [Volume Fraction] of Blood by Automated countOrdered By: Delano Francis on 09-22-2024 Hematocrit (Bld) [Volume fraction] 35.9 % Normal 34.0-46.4 [facility] Comment on above: Performed By: #### D VENITA, JOSSE T4, [id number], SEROTON, TEST F + T, T3R, THYGLOB AB, ESTRADIOL, TPO, SHBG, ESTRONE, INSULIN, PROG #### [facility] , #### T4F, TRISTEN, TSH3, A1C WTH eA, FILIBERTO, GLU, T3F #### [facility] [address] [place] [address] [place] Hemoglobin [Mass/volume] in BloodOrdered By: Delano Francis on 09-22-2024 Hemoglobin (Bld) [Mass/Vol] 12.3 g/dL Normal 11.8-15.4 [facility] Comment on above: Performed By: #### D HEAS, LC T4, [id number], SEROTON, TEST F + T, T3R, THYGLOB AB, ESTRADIOL, TPO, SHBG, ESTRONE, INSULIN, PROG #### [facility] , #### T4F, TRISTEN, TSH3, A1C WTH eA, FILIBERTO, GLU, T3F #### [facility] [address] Hemoglobin (Bld) [Mass/Vol] Hemoglobin [Mass/volume] in Blood 11.8-15.4 [facility] Leukocytes [#/volume] correc calvin for nucleated erythrocytes in Blood by Automated counOrdered By: Delano Francis on 09-22-2024 WBC corrected for nucl RBC Auto (Bld) [#/Vol] 5.1 10*3/uL 3.8-11.6 [facility] WBC corrected for nucl RBC Auto (Bld) [#/Vol] Leukocytes [#/volume] corrected for nucleated erythrocytes in Blood by Automated coun 3.8-11.6 [facility] Leukocytes [#/volume] in Blo od by Automated countOrdered By: Dleano Francis on 09-22-2024 WBC (Bld) [#/Vol] 5.1 10*3/uL Normal 3.8-11.6 [facility] Comment on above: Performed By: #### D HEAS, LC T4, [id number], SEROTON, TEST F + T, T3R, THYGLOB AB, ESTRADIOL, TPO, SHBG, ESTRONE, INSULIN, PROG #### [facility] , #### T4F, TRISTEN, TSH3, A1C WTH eA, FILIBERTO, GLU, T3F #### [facility] [address] [place] [address] [place] Lymphocytes Auto (Bld) [#/Vo l]Ordered By: Delano Francis on 09-22-2024 Lymphocytes (Bld) [#/Vol] Lymphocytes [#/volume] in Blood by Automated count 1.00-4.8 [facility] Lymphocytes [#/volume] in Bl ood by Automated countOrdered By: Delano Francis on 09-22-2024 Lymphocytes (Bld) [#/Vol] 1.3 10*3/uL Normal 1.00-4.8 [facility] Comment on above: Performed By: #### D HEAS, LC T4, [id number], SEROTON, TEST F + T, T3R, THYGLOB AB, ESTRADIOL, TPO, SHBG, ESTRONE, INSULIN, PROG #### [facility] , #### T4F, TRISTEN, TSH3, A1C WTH eA, FILIBERTO, GLU, T3F #### [address] Lymphocytes/100 WBC Auto (Bl d)Ordered By: Delano Francis on 09-22-2024 Lymphocytes/100 WBC (Bld) Lymphocytes/100 leukocytes in Blood by Automated count . [facility] Lymphocytes/100 leukocytes i n Blood by Automated countOrdered By: Delano Francis on 09-22-2024 Lymphocytes/100 WBC (Bld) 25.3 % Normal . [facility] Comment on above: Performed By: #### D HEAS, LC T4, [id number], SEROTON, TEST F + T, T3R, THYGLOB AB, ESTRADIOL, TPO, SHBG, ESTRONE, INSULIN, PROG #### [facility] , #### T4F, TRISTEN, TSH3, A1C WTH eA, FILIBERTO, GLU, T3F #### [facility] [address] [place] [address] MCH Auto (RBC) [Entitic mass ]Ordered By: Delano Francis on 09-22-2024 MCH (RBC) [Entitic mass] MCH [Entitic mass] by Automated count 24.7-34.3 [facility] MCH [Entitic mass] by Automa calvin countOrdered By: Delano Francis on 09-22-2024 MCH (RBC) [Entitic mass] 31.4 pg Normal 24.7-34.3 [facility] Comment on above: Performed By: #### D HEAS, LC T4, [id number], SEROTON, TEST F + T, T3R, THYGLOB AB, ESTRADIOL, TPO, SHBG, ESTRONE, INSULIN, PROG #### [facility] , #### T4F, TRISTEN, TSH3, A1C WTH eA, FILIBERTO, GLU, T3F #### [facility] [address] [place] [address] MCHC Auto (RBC) [Mass/Vol]Or dered By: Delano Francis on 09-22-2024 MCHC (RBC) [Mass/Vol] 34.2 g/dL 32.0-35.0 [facility] MCHC (RBC) [Mass/Vol] MCHC [Mass/volume] by Automated count 32.0-35.0 [facility] MCV Auto (RBC) [Entitic vol] Ordered By: Delano Francis on 09-22-2024 MCV (RBC) [Entitic vol] MCV [Entitic vol ume] by Automated count 80-100 [facility] MCV [Entitic volume] by Auto mated countOrdered By: Delano Francis on 09-22-2024 MCV (RBC) [Entitic vol] 91.7 fL Normal 80-100 [facility] Comment on above: Performed By: #### D HEAS, LC T4, [id number], SEROTON, TEST F + T, T3R, THYGLOB AB, ESTRADIOL, TPO, SHBG, ESTRONE, INSULIN, PROG #### [facility] , #### T4F, TRISTEN, TSH3, A1C WTH eA, FILIBERTO, GLU, T3F #### [facility] [address] [place] [address] Monocytes Auto (Bld) [#/Vol] Ordered By: Delano Francis on 09-22-2024 Monocytes (Bld) [#/Vol] Automated blood monocyte count 0.0-0.8 [facility] Monocytes/100 WBC Auto (Bld) Ordered By: Delano Francis on 09-22-2024 Monocytes/100 WBC (Bld) Automated monocyte % . [facility] Neutrophils Auto (Bld) [#/Vo l]Ordered By: Delano Francis on 09-22-2024 Neutrophils (Bld) [#/Vol] Neutrophils [#/volume] in Blood by Automated count 1.8-7.7 [facility] Neutrophils [#/volume] in Bl ood by Automated countOrdered By: Delano Francis on 09-22-2024 Neutrophils (Bld) [#/Vol] 3.2 10*3/uL Normal 1.8-7.7 [facility] Comment on above: Performed By: #### D HEAS, LC T4, [id number], SEROTON, TEST F + T, T3R, THYGLOB AB, ESTRADIOL, TPO, SHBG, ESTRONE, INSULIN, PROG #### [facility] , #### T4F, TRISTEN, TSH3, A1C WTH eA, FILIBERTO, GLU, T3F #### [facility] [address] Neutrophils/100 WBC Auto (Bl d)Ordered By: Delano Francis on 09-22-2024 Neutrophils/100 WBC (Bld) Automated neutrophil % . [facility] No Panel InformationOrdered By: Delano Francis on 09-22-2024 Estimated GFR (CKD-EPI) > 60.0 mL/Min [facility] Creatinine Clearance (Chem N/A [facility] Nucleated erythrocytes [Pres ence] in Blood by Automated countOrdered By: Delano Francis on 09-22-2024 Nucleated RBC Auto Ql (Bld) 0.0 /100{WBC} 0-0.5 [facility] Nucleated RBC Auto Ql (Bld) Nucleated erythrocytes [Presence] in Blood by Automated count 0-0.5 [facility] Platelet mean volume Auto (B ld) [Entitic vol]Ordered By: Delano Francis on 09-22-2024 Platelet mean volume (Bld) [Entitic vol] Platelet mean volume [Entitic volume] in Blood by Automated count 6.3-10.7 [facility] Platelet mean volume [Entiti c volume] in Blood by Automated countOrdered By: Delano Francis on 09-22-2024 Platelet mean volume (Bld) [Entitic vol] 7.3 fL Normal 6.3-10.7 [facility] Comment on above: Performed By: #### D HEAS, LC T4, [id number], SEROTON, TEST F + T, T3R, THYGLOB AB, ESTRADIOL, TPO, SHBG, ESTRONE, INSULIN, PROG #### [facility] , #### T4F, TRISTEN, TSH3, A1C WTH eA, FILIBERTO, GLU, T3F #### [facility] [address] Platelets Auto (Bld) [#/Vol] Ordered By: Delano Francis on 09-22-2024 Platelets (Bld) [#/Vol] Platelets [#/vol ume] in Blood by Automated count 150-450 [facility] Platelets [#/volume] in Bloo d by Automated countOrdered By: Delano Francis on 09-22-2024 Platelets (Bld) [#/Vol] 328 10*3/uL Normal 150-450 [facility] Comment on above: Performed By: #### D HEAS, LC T4, [id number], SEROTON, TEST F + T, T3R, THYGLOB AB, ESTRADIOL, TPO, SHBG, ESTRONE, INSULIN, PROG #### [facility] , #### T4F, TRISTEN, TSH3, A1C WTH eA, FILIBERTO, GLU, T3F #### [facility] [address] [place] [address] [place] Potassium [Moles/volume] in Serum or PlasmaOrdered By: Delano Francsi on 09-22-2024 Potassium [Moles/Vol] 4.5 mmol/L Normal 3.5-5.1 [facility] Comment on above: Performed By: #### D HEAS, LC T4, [id number], SEROTON, TEST F + T, T3R, THYGLOB AB, ESTRADIOL, TPO, SHBG, ESTRONE, INSULIN, PROG #### [facility] , #### T4F, TRISTEN, TSH3, A1C WTH eA, FILIBERTO, GLU, T3F #### [facility] [address] [place] [address] [place] Potassium [Moles/Vol] Potassium [Moles/v olume] in Serum or Plasma 3.5-5.1 [facility] RBC Auto (Bld) [#/Vol]Ordere d By: Delano Francis on 09-22-2024 RBC (Bld) [#/Vol] Erythrocytes [#/volu me] in Blood by Automated count 3.60-5.00 [facility] Serum or plasma anion gap de terminationOrdered By: Delano Francis on 09-22-2024 Anion gap [Moles/Vol] 8.3 mmol/L Normal 6.0-15.0 [facility] Comment on above: Performed By: #### D JOSSE NATHAN T4, [id number], SEROTON, TEST F + T, T3R, THYGLOB AB, ESTRADIOL, TPO, SHBG, ESTRONE, INSULIN, PROG #### [facility] , #### T4F, TRISTEN, TSH3, A1C WTH eA, FILIBERTO, GLU, T3F #### [facility] [address] Anion gap [Moles/Vol] Serum or plasma an ion gap determination 6.0-15.0 [facility] Serum or plasma high density lipoprotein (HDL) cholesterol measurementOrdered By: Delano Francis on 09-22-2024 Cholesterol in HDL [Mass/Vol] 59 mg/dL Normal 23-92 [facility] Comment on above: HDL CHOL ATP-III CLA SSIFICATION Cardiovascular RiskHDL > or equal to 60 mg/dL LOWHDL < 40 mg/dL HIGH Result Comment: HDL CHOL ATP-III CLASSIFICATION Cardiovascular Risk HDL > or equal to 60 mg/dL LOW HDL < 40 mg/dL HIGH Performed By: #### D JOSSE NATHAN T4, [id number], SEROTON, TEST F + T, T3R, THYGLOB AB, ESTRADIOL, TPO, SHBG, ESTRONE, INSULIN, PROG #### [facility] , #### T4F, TRISTEN, TSH3, A1C WTH eA, FILIBERTO, GLU, T3F #### [facility] [address] Serum or plasma total choles terol/high density lipoprotein (HDL) cholesterol mass ratOrdered By: Delano Francis on 09-22-2024 Cholesterol.total/Alivia sterol in HDL [Mass ratio] 3.7 {ratio} Normal <5.0 [facility] Comment on above: Performed By: #### D HEAS, LC T4, [id number], SEROTON, TEST F + T, T3R, THYGLOB AB, ESTRADIOL, TPO, SHBG, ESTRONE, INSULIN, PROG #### [facility] , #### T4F, TRISTEN, TSH3, A1C WTH eA, FILIBERTO, GLU, T3F #### [facility] [address] Cholesterol.total/Alivia sterol in HDL [Mass ratio] Serum or plasma total cholesterol/high density lipoprotein (HDL) cholesterol mass rat <5.0 [facility] Sodium [Moles/volume] in Ser um or PlasmaOrdered By: Delano Francis on 09-22-2024 Sodium [Moles/Vol] 138 mmol/L Normal 136-145 [facility] Comment on above: Performed By: #### D HEAS, LC T4, [id number], SEROTON, TEST F + T, T3R, THYGLOB AB, ESTRADIOL, TPO, SHBG, ESTRONE, INSULIN, PROG #### [facility] , #### T4F, TRISTEN, TSH3, A1C WTH eA, FILIBERTO, GLU, T3F #### [facility] [address] [place] [address] [place] Sodium [Moles/Vol] Sodium [Moles/volume ] in Serum or Plasma 136-145 [facility] Thyrotropin [Units/volume] i n Serum or PlasmaOrdered By: Delano Francis on 09-22-2024 TSH Qn 2.30 m[IU]/L 0.45-5.33 [facility] TSH Qn Thyrotropin [Units/volume] in Serum or Plasma 0.45-5.33 [facility] Triglyceride [Mass/volume] i n Serum or PlasmaOrdered By: Delano Francis on 09-22-2024 Triglyceride [Mass/Vol] 52 mg/dL 0-149 [facility] Comment on above: TRIG ATP III CLASSIF ICATIONTRIG less than 150 mg/dL NormalTRIG 150-199 mg/dL Borderline highTRIG 200-500 mg/dL High TRIG greater than 500 mg/dL Very highStandard traceable to the Center for Disease Conrtrol and Prevention (CDC) test method. Triglyceride [Mass/Vol] Triglyceride [Mass/volume] in Serum or Plasma 0-149 [facility] Comment on above: TRIG ATP III CLASSIF ICATIONTRIG less than 150 mg/dL NormalTRIG 150-199 mg/dL Borderline highTRIG 200-500 mg/dL High TRIG greater than 500 mg/dL Very highStandard traceable to the Center for Disease Conrtrol and Prevention (CDC) test method. Urea nitrogen [Mass/volume] in Serum or PlasmaOrdered By: Delano Francis on 09-22-2024 Urea nitrogen [Mass/Vol] 9 mg/dL Normal 06-23 [facility] Comment on above: Performed By: #### D HESUE, LC T4, [id number], SEROTON, TEST F + T, T3R, THYGLOB AB, ESTRADIOL, TPO, SHBG, ESTRONE, INSULIN, PROG #### [facility] , #### T4F, TRISTEN, TSH3, A1C WTH eA, FILIBERTO, GLU, T3F #### [facility] [address] Urea nitrogen [Mass/Vol] Urea nitrogen [Mass/volume] in Serum or Plasma 06-23 [facility] WBC Auto (Bld) [#/Vol]Ordere d By: Delano Francis on 09-22-2024 WBC (Bld) [#/Vol] Leukocytes [#/volume ] in Blood by Automated count 3.8-11.6 [facility] IGP,APTIMA HPV,AGE GDLNon AGE GDLN ACOG TESTING Note . [facility] Comment on above: TESTS RESULT FLAG U NITS REF RANGE LAB Clinician Provided Cytology Information Source.............Cervix;Endocervix No. of containers..01 ThinPrep Vial Age Algo ACOG Lara... 30- FLAG LEGEND: L-Low Normal,H-High Normal,LL-Alert Low,HH-Alert High <-Panic Low,>-Panic High,A-Abnormal,AA-Critical Abnormal Performed at: 01 =[address] [address] Ilana Heath MD, HPV APTIMA Negative Negative [facility] Comment on above: This nucleic acid am plification test detects fourteen high- risk HPV types (16,18,31,33,35,39,45,51,52,56,58,59,66,68) without differentiation. Performed at: =[address] [id number] Recovery Coordinator: Ilana Heath MD, Phone: [phone] Performed at: [address] [id number] Recovery Coordinator: Ilana Heath MD, Phone: [phone] IGP, APTIMA HPV, RFX 16/18,45 Note . [facility] Comment on above: TESTS RESULT FLAG UN ITS REF RANGE LAB DIAGNOSIS: 02 NEGATIVE FOR INTRAEPITHELIAL LESION OR MALIGNANCY. Specimen adequacy: 02 Satisfactory for evaluation. No endocervical component is identified. Performed by: 02 Chema Camargo, Communications Tower Climber (ASC) . 02 Note: Note 02 The [...] High,A-Abnormal,AA-Critical Abnormal Performed at: 02 [address] [facility] [address] [address] Ilana Heath MD, BRUSH-SPATULA [facility] [place] [facility] Cervical or vaginal smear or scraping studyon 09-13-2024 [facility] 1,25 Dihydroxy Vit D Calcitr olon 01-07-2024 1,25 Dihydroxy Vit D Calcitrol 56.6 pg/mL Normal 24.8-81.5 [facility] Comment on above: Result Comment: Perf ormed at: BN - [facility] [address] [id number] Recovery Coordinator: Quinton Wolf MD, Phone: [phone] Performed By: #### D JOSSE NATHAN T4, [id number], SEROTON, TEST F + T, T3R, THYGLOB AB, ESTRADIOL, TPO, SHBG, ESTRONE, INSULIN, PROG #### [facility] , #### T4F, TRISTEN, TSH3, A1C WTH eA, FILIBERTO, GLU, T3F #### [address] A1C with Estimated Average G luon 01-07-2024 Glucose [Mass/Vol] 105 mg/dL Normal [facility] Comment on above: Result Comment: PERF ORMED BY: [place] [address] PATHOLOGIST GOLD FRAME ASSEMBLER JOSE GOEL M.D. Performed By: #### D HEAS, LC T4, [id number], SEROTON, TEST F + T, T3R, THYGLOB AB, ESTRADIOL, TPO, SHBG, ESTRONE, INSULIN, PROG #### [facility] , #### T4F, TRISTEN, TSH3, A1C WTH eA, FILIBERTO, GLU, T3F #### [place] [id number] [facility] Antithyroglobulin Abon 01-07 Antithyroglobulin Ab <1.0 Normal 0.0-0.9 [facility] Comment on above: Result Comment: Thyr oglobulin Antibody measured by [employer] Performed at: - [facility] [id number] Recovery Coordinator: Baudilio Leyva PhD, Phone: [phone] Performed By: #### D HEAS, LC T4, [id number], SEROTON, TEST F + T, T3R, THYGLOB AB, ESTRADIOL, TPO, SHBG, ESTRONE, INSULIN, PROG #### [facility] , #### T4F, TRISTEN, TSH3, A1C WTH eA, FILIBERTO, GLU, T3F #### [place] [id number] [facility] Cortisolon 01-07-2024 Cortisol 6.8 ug/dL Normal [facility] Comment on above: Result Comment: Refe rence range: AM 6 - 24 ug/dl PM <10 ug/dl [facility] journalism instructor and method: HELGA UNICEL DXI, POLYCLONAL ANTIBODY CORTISOL ASSAY. PERFORMED BY: [place] [address] PATHOLOGIST GOLD FRAME ASSEMBLER JOSE GOEL M.D. Performed By: #### D HEAS, LC T4, [id number], SEROTON, TEST F + T, T3R, THYGLOB AB, ESTRADIOL, TPO, SHBG, ESTRONE, INSULIN, PROG #### [facility] , #### T4F, TRISTEN, TSH3, A1C WTH eA, FILIBERTO, GLU, T3F #### [facility] [address] [place] [id number] [facility] Dehydroepiandrosterone Sulfa teOrdered By: Deisy Villar on 01-07-2024 Dehydroepiandrosterone Sulfate 174.0 ug/dL Normal 84.8-378.0 [facility] Comment on above: Performed By: #### Adria SANTOSAS, LC T4, [id number], SEROTON, TEST F + T, T3R, THYGLOB AB, ESTRADIOL, TPO, SHBG, ESTRONE, INSULIN, PROG #### [facility] , #### T4F, TRISTEN, TSH3, A1C WTH eA, FILIBERTO, GLU, T3F #### [facility] [address] [place] [id number] [facility] Estradiolon 01-07-2024 Estradiol 300.0 pg/mL Normal . [facility] Comment on above: Result Comment: Adul t Female Range Follicular phase 12.5 - 166.0 Ovulation phase 85.8 - 498.0 Luteal phase 43.8 - 211.0 Postmenopausal <6.0 - 54.7 1st trimester 215.0 - >4300.0 Elías ECLIA methodology Performed By: #### D HEAS, LC T4, [id number], SEROTON, TEST F + T, T3R, THYGLOB AB, ESTRADIOL, TPO, SHBG, ESTRONE, INSULIN, PROG #### [facility] , #### T4F, TRISTEN, TSH3, A1C WTH eA, FILIBERTO, GLU, T3F #### [facility] [address] [place] [id number] [facility] Estrone, Serumon 01-07-2024 Estrone, Serum 46 pg/mL Normal 27-231 [facility] Comment on above: Result Comment: Joo hadley Adult (Premenopausal) 27 - 231 Menstrual Cycle (1-10 days) 19 - 149 Menstrual Cycle (11-20 days) 32 - 176 Menstrual Cycle (21-30 days) 37 - 200 Performed at: [address] [id number] Recovery Coordinator: Quinton Wolf MD, Phone: [phone] Performed By: #### D HEAS, LC T4, [id number], SEROTON, TEST F + T, T3R, THYGLOB AB, ESTRADIOL, TPO, SHBG, ESTRONE, INSULIN, PROG #### [facility] , #### T4F, TRISTEN, TSH3, A1C WTH eA, FILIBERTO, GLU, T3F #### [facility] [address] [place] [address] [place] Ferritin [Mass/volume] in Se rum or PlasmaOrdered By: Deisy Villar on 01-07-2024 Ferritin [Mass/Vol] 44.8 ng/mL Normal 11.0-306.8 [facility] Comment on above: Performed By: #### D VENITA, LC T4, [id number], SEROTON, TEST F + T, T3R, THYGLOB AB, ESTRADIOL, TPO, SHBG, ESTRONE, INSULIN, PROG #### [facility] , #### T4F, TRISTEN, TSH3, A1C WTH eA, FILIBERTO, GLU, T3F #### [facility] [address] Free testosterone measuremen t by LC-MS/MSOrdered By: Deisy Villar on 01-07-2024 Testosterone Free [Mass/Vol] 0.3 pg/mL 0.0-4.2 [facility] Comment on above: Performed at: [address] [id number] Director: Baudilio Leyva PhD, Phone: [phone] at: [facility] [address] [id number] Director: Quinton Wolf MD, Phone: [phone] Glucose [Mass/volume] in Ser um or PlasmaOrdered By: Deisy Villar on 01-07-2024 Glucose [Mass/Vol] 84 mg/dL Normal 70-100 [facility] Comment on above: ADA recommended refe rence rangeRandom Glucose Reference Range is dependent on time and content of last meal. Glucose of more than 200 mg/dL in a nonstressed, ambulatory subject supports the diagnosis of Diabetes Mellitus. Result Comment: Lula om Glucose Reference Range is dependent on time and content of last meal. Glucose of more than 200 mg/dL in a nonstressed, ambulatory subject supports the diagnosis of Diabetes Mellitus. ADA recommended reference range Performed By: #### D VENITA, JOSSE T4, [id number], SEROTON, TEST F + T, T3R, THYGLOB AB, ESTRADIOL, TPO, SHBG, ESTRONE, INSULIN, PROG #### [facility] , #### T4F, TRISTEN, TSH3, A1C WTH eA, FILIBERTO, GLU, T3F #### [address] Glucose mean value [Mass/vol ume] in Blood Estimated from glycated hemoglobinOrdered By: Deisy Villar on 01-07-2024 Average glucose Estimated from glycated hemoglobin (Bld) [Mass/Vol] 105 mg/dL [facility] Hemoglobin A1c percentageOrd ered By: Deisy Villar on 01-07-2024 HbA1c (Bld) [Mass fraction] 5.3 % Normal 4.3-5.6 [facility] Comment on above: Increased risk for d iabetes: 5.7 - 6.4diabetes: >6.4glycemic control for adults with diabetes: <7.0 Result Comment: Incr eased risk for diabetes: 5.7 - 6.4 diabetes: >6.4 glycemic control for adults with diabetes: <7.0 Performed By: #### D DANIELLEAS, LC T4, [id number], SEROTON, TEST F + T, T3R, THYGLOB AB, ESTRADIOL, TPO, SHBG, ESTRONE, INSULIN, PROG #### [facility] , #### T4F, TRISTEN, TSH3, A1C WTH eA, FILIBERTO, GLU, T3F #### [address] Insulinon 01-07-2024 Insulin 4.5 u[iU]/mL Normal 2.6-24.9 [facility] Comment on above: Result Comment: Perf ormed at: [facility] [address] [id number] Recovery Coordinator: Baudilio Leyva PhD, Phone: [phone] Performed By: #### D HESUE, LC T4, [id number], SEROTON, TEST F + T, T3R, THYGLOB AB, ESTRADIOL, TPO, SHBG, ESTRONE, INSULIN, PROG #### [facility] , #### T4F, TRISTEN, TSH3, A1C WTH eA, FILIBERTO, GLU, T3F #### [address] [facility] Thyroxine (T4)on T4 [Mass/Vol] 8.2 ug/dL Normal 4.5-12.0 [facility] Comment on above: Performed By: #### D HEAS, LC T4, [id number], SEROTON, TEST F + T, T3R, THYGLOB AB, ESTRADIOL, TPO, SHBG, ESTRONE, INSULIN, PROG #### [facility] , #### T4F, TRISTEN, TSH3, A1C WTH eA, FILIBERTO, GLU, T3F #### [address] No Panel InformationOrdered By: Deisy Villar on 01-07-2024 Free Thyroxine (T4) Direct 8.2 ug/dL 4.5-12.0 [facility] Reverse Triiodothyronine (T3) 18.9 ng/dL 9.2-24.1 [facility] Comment on above: This test was devsairao ped and its performance characteristicsdetermined by [facility]. It has not been cleared orapproved by the Food and Drug Administration.Performed at: [address] [id number] Director: Quinton Wolf MD, Phone: [phone] Sex Hormone Binding Globulin 95.4 nmol/L 24.6-122.0 [facility] Comment on above: Performed at: [address] [id number] Director: Baudilio Leyva PhD, Phone: [phone] Plasma serotonin measurement (mass/volume)Ordered By: Deisy Villar on 01-07-2024 Serotonin (P) [Mass/Vol] 71 ng/mL [facility] Comment on above: This test was develo ped and its performance characteristicsdetermined by [employer]. It has not been cleared orapproved by the Food and Drug Administration.Performed at: [address] [id number] Director: Quinton Wolf MD, Phone: [phone] Progesteroneon 01-07-2024 Progesterone 0.2 ng/mL Normal . [facility] Comment on above: Result Comment: Foll icular phase 0.1 - 0.9 Luteal phase 1.8 - 23.9 Ovulation phase 0.1 - 12.0 First trimester 11.0 - 44.3 Second trimester 25.4 - 83.3 Third trimester 58.7 - 214.0 Postmenopausal 0.0 - 0.1 Performed By: #### D HEAS, LC T4, [id number], SEROTON, TEST F + T, T3R, THYGLOB AB, ESTRADIOL, TPO, SHBG, ESTRONE, INSULIN, PROG #### [facility] , #### T4F, TRISTEN, TSH3, A1C WTH eA, FILIBERTO, GLU, T3F #### [facility] [address] Random cortisol measurementO rdered By: Deisy Villar on 01-07-2024 Cortisol [Mass/Vol] 6.8 ug/dL [facility] Comment on above: [facility] journalism instructor and method:ZadbyEL DXI, POLYCLONAL ANTIBODY CORTISOL ASSAY.Reference range: AM 6 - 24 ug/dl PM <10 ug/dl Serotonin, Serumon Serotonin, Serum 71 ng/mL Normal [facility] Comment on above: Result Comment: This test was developed and its performance characteristics determined by [facility] [employer]. It has not been cleared or approved by the Food and Drug Administration. Performed at: [address] [id number] Recovery Coordinator: Quinton Wolf MD, Phone: [phone] PERFORMED BY: [place] [address] PATHOLOGIST GOLD FRAME ASSEMBLER JOSE GOEL M.D. Performed By: #### D HEAS, LC T4, [id number], SEROTON, TEST F + T, T3R, THYGLOB AB, ESTRADIOL, TPO, SHBG, ESTRONE, INSULIN, PROG #### [facility] , #### T4F, TRISTEN, TSH3, A1C WTH eA, FILIBERTO, GLU, T3F #### [address] Serum estrone measurementOrd ered By: Deisy Villar on 01-07-2024 E1 [Mass/Vol] 46 pg/mL 27-231 [facility] Comment on above: Range Adult (Premeno pausal) 27 - 231 Menstrual Cycle (1-10 days) 19 - 149 Menstrual Cycle (11-20 days) 32 - 176 Menstrual Cycle (21-30 days) 37 - 200Performed at: [facility] [id number] Director: Quinton Wolf MD, Phone: [phone] Serum or plasma calcitriol m easurement (mass/volume)Ordered By: Deisy Villar on 01-07-2024 1,25-dihydroxyvitamin D3 [Mass/Vol] 56.6 pg/mL 24.8-81.5 [facility] Comment on above: Performed at: - [facility] [address] [id number] Director: Quinton Wolf MD, Phone: [phone] Serum or plasma estradiol (E 2) measurement (mass/volume)Ordered By: Deisy Villar on 01-07-2024 E2 [Mass/Vol] 300.0 pg/mL . [facility] Comment on above: Adult Female Range F ollicular phase 12.5 - 166.0 Ovulation phase 85.8 - 498.0 Luteal phase 43.8 - 211.0 Postmenopausal <6.0 - 54.7 1st trimester 215.0 - >4300.0Roche ECLIA methodology Serum or plasma insulin kevin urement (units/volume)Ordered By: Deisy Villar on 01-07-2024 Insulin Qn 4.5 u[iU]/mL 2.6-24.9 [facility] Comment on above: Performed at: [employer] [place], [place] [id number] Director: Baudilio Leyva PhD, Phone: [phone] Serum or plasma progesterone measurement (mass/volume)Ordered By: Deisy Villar on 01-07-2024 Progesterone [Mass/Vol] 0.2 ng/mL . [facility] Comment on above: Follicular phase 0.1 - 0.9 Luteal phase 1.8 - 23.9 Ovulation phase 0.1 - 12.0 First trimester 11.0 - 44.3 Second trimester 25.4 - 83.3 Third trimester 58.7 - 214.0 Postmenopausal 0.0 - 0.1 Serum or plasma thyroglobuli n antibody assay (units/volume)Ordered By: Deisy Villar on 01-07-2024 Thyroglobulin Ab Qn [IU]/mL 0.0-0.9 [facility] Comment on above: Thyroglobulin Antibo dy measured by EstifyMethodologyPerformed at: [employer] [place], [place] [id number] Director: Baudilio Leyva PhD, Phone: [phone] Serum or plasma thyroperoxid ase antibody assay (units/volume)Ordered By: Deisy Villar on 01-07-2024 TPO Ab Qn [IU]/mL 0-34 [facility] Comment on above: Performed at: [employer] [place], [place] [id number] Director: Baudilio Leyva PhD, Phone: [phone] Sex Hormone Binding Globulin on 01-07-2024 Sex Hormone Binding Globulin 95.4 Normal 24.6-122.0 [facility] Comment on above: Result Comment: Perf ormed at: CB - Lab[address] [id number] Recovery Coordinator: Baudilio Leyva PhD, Phone: [phone] Performed By: #### Adria NATHAN, LC T4, [id number], SEROTON, TEST F + T, T3R, THYGLOB AB, ESTRADIOL, TPO, SHBG, ESTRONE, INSULIN, PROG #### [facility] , #### T4F, TRISTEN, TSH3, A1C WTH eA, FILIBERTO, GLU, T3F #### [facility] [address] Testosterone Free and TotalO rdered By: Deisy Villar on 01-07-2024 Testosterone [Mass/Vol] 16 ng/dL Normal 8-60 [facility] Comment on above: Performed By: #### Adria NATHAN, LC T4, [id number], SEROTON, TEST F + T, T3R, THYGLOB AB, ESTRADIOL, TPO, SHBG, ESTRONE, INSULIN, PROG #### [facility] , #### T4F, TRISTEN, TSH3, A1C WTH eA, FILIBERTO, GLU, T3F #### [facility] [address] Testosterone Free and Totalo n 01-07-2024 Testosterone,Free 0.3 pg/mL Normal 0.0-4.2 [facility] Comment on above: Result Comment: Perf ormed at: [facility] [id number] Recovery Coordinator: Baudilio Leyva PhD, Phone: [phone] Performed at: [facility] [address] [id number] Recovery Coordinator: Quinton Wolf MD, Phone: [phone] Performed By: #### Adria NATHAN, LC T4, [id number], SEROTON, TEST F + T, T3R, THYGLOB AB, ESTRADIOL, TPO, SHBG, ESTRONE, INSULIN, PROG #### [facility] , #### T4F, TRISTEN, TSH3, A1C WTH eA, FILIBERTO, GLU, T3F #### [address] Thyroid Peroxidase Antibodie son 01-07-2024 Thyroid Peroxidase Antibodies <9 Normal 0-34 [facility] Comment on above: Result Comment: Perf ormed at: - [facility] [address] [id number] Recovery Coordinator: Baudilio Leyva PhD, Phone: [phone] Performed By: #### D HEAS, LC T4, [id number], SEROTON, TEST F + T, T3R, THYGLOB AB, ESTRADIOL, TPO, SHBG, ESTRONE, INSULIN, PROG #### [facility] , #### T4F, TRISTEN, TSH3, A1C WTH eA, FILIBERTO, GLU, T3F #### [address] Thyrotropin [Units/volume] i n Serum or PlasmaOrdered By: Deisy Villar on 01-07-2024 TSH Qn 1.80 m[IU]/L Normal 0.45-5.33 [facility] Comment on above: Performed By: #### D HEAS, LC T4, [id number], SEROTON, TEST F + T, T3R, THYGLOB AB, ESTRADIOL, TPO, SHBG, ESTRONE, INSULIN, PROG #### [facility] , #### T4F, TRISTEN, TSH3, A1C WTH eA, FILIBERTO, GLU, T3F #### [facility] [address] [place] [address] Thyroxine (T4) free [Mass/vo lume] in Serum or PlasmaOrdered By: Deisy Villar on 01-07-2024 Free T4 [Mass/Vol] 0.88 ng/dL Normal 0.61-1.12 [facility] Comment on above: Performed By: #### D HEAS, LC T4, [id number], SEROTON, TEST F + T, T3R, THYGLOB AB, ESTRADIOL, TPO, SHBG, ESTRONE, INSULIN, PROG #### [facility] , #### T4F, TRISTEN, TSH3, A1C WTH eA, FILIBERTO, GLU, T3F #### [place] [id number] [facility] Triiodothyronine (T3) Freeon 01-07-2024 Triiodothyronine (T3) Free 3.90 pg/mL Normal 2.50-3.90 [facility] Comment on above: Result Comment: PERF ORMED BY: [place] [address] PATHOLOGIST [employer] JOSE GOEL M.D. Performed By: #### D VENITA, LC T4, [id number], SEROTON, TEST F + T, T3R, THYGLOB AB, ESTRADIOL, TPO, SHBG, ESTRONE, INSULIN, PROG #### [facility] , #### T4F, TRISTEN, TSH3, A1C WTH eA, FILIBERTO, GLU, T3F #### [address] Triiodothyronine (T3) Free [ Mass/volume] in Serum or PlasmaOrdered By: Deisy Villar on 01-07-2024 Free T3 [Mass/Vol] 3.90 pg/mL 2.50-3.90 [facility] Triiodothyronine (T3) Revers lonnie 01-07-2024 Triiodothyronine (T3) Reverse 18.9 ng/dL Normal 9.2-24.1 [facility] Comment on above: Result Comment: This test was developed and its performance characteristics determined by [facility]. It has not been cleared or approved by the Food and Drug Administration. Performed at: [address] [id number] Recovery Coordinator: Quinton Wolf MD, Phone: [phone] Performed By: #### D HEAS, LC T4, [id number], SEROTON, TEST F + T, T3R, THYGLOB AB, ESTRADIOL, TPO, SHBG, ESTRONE, INSULIN, PROG #### [facility] , #### T4F, TRISTEN, TSH3, A1C WTH eA, FILIBERTO, GLU, T3F #### [address] [place] [address] [facility] Alanine aminotransferase [En zymatic activity/volume] in Serum or PlasmaOrdered By: Delano Francis on 09-17-2023 ALT [Catalytic activity/Vol] 20 U/L 7-52 [facility] Albumin [Mass/volume] in Ser um or Plasma by Bromocresol green (BCG) dye binding methoOrdered By: Delano Francis on 09-17-2023 Albumin BCG dye [Mass/Vol] 4.3 g/dL 3.5-5.7 [facility] Alkaline phosphatase [Enzyma tic activity/volume] in Serum or PlasmaOrdered By: Delano Francis on 09-17-2023 ALP [Catalytic activity/Vol] 62 U/L 34-104 [facility] Aspartate aminotransferase [ Enzymatic activity/volume] in Serum or PlasmaOrdered By: Delano Francis on 09-17-2023 AST [Catalytic activity/Vol] 22 U/L 13-39 [facility] Basophils Auto (Bld) [#/Vol] Ordered By: Delano Francis on 09-17-2023 Basophils (Bld) [#/Vol] 0.0 10*3/uL 0.0-0.2 [facility] Basophils/100 WBC Auto (Bld) Ordered By: Delano Francis on 09-17-2023 Basophils/100 WBC (Bld) 0.4 % . [facility] Bilirubin.total [Mass/volume ] in Serum or PlasmaOrdered By: Delano Francis on 09-17-2023 Bilirubin [Mass/Vol] 0.7 mg/dL 0.3-1.[address] [facility] Calcium [Mass/volume] in Ser um or PlasmaOrdered By: Delano Francis on 09-17-2023 Calcium [Mass/Vol] 9.4 mg/dL 8.6-10.3 [facility] Carbon dioxide, total [Moles /volume] in Serum or PlasmaOrdered By: Delano Francis on 09-17-2023 CO2 [Moles/Vol] 26.2 mmol/L 21.0-31.0 [facility] Chloride [Moles/volume] in S stevo or PlasmaOrdered By: Delano Francis on 09-17-2023 Chloride [Moles/Vol] 102 mmol/L 98-[address] [facility] Cholesterol [Mass/volume] in Serum or PlasmaOrdered By: Delano Francis on 09-17-2023 Cholesterol [Mass/Vol] 214 mg/dL 140-200 [facility] Comment on above: Chol less than 200 m g/dl low riskChol 201-239 mg/dl borderline riskChol 240 mg/dl and greater high risk Cholesterol in LDL Calc [Mas s/Vol]Ordered By: Delano Francis on 09-17-2023 Cholesterol in LDL [Mass/Vol] 161 mg/dL 0-100 [facility] Comment on above: LDL ATP III CLASSIFI CATIONLDL less than 100 mg/dL OptimalLDL 100-129 mg/dL Near or above optimalLDL 130-159 mg/dL Borderline highLDL 160-189 mg/dL HighLDL greater than 189 mg/dL Very high Cholesterol in VLDL Calc [Ma ss/Vol]Ordered By: Delano Francis on 09-17-2023 Cholesterol in VLDL [Mass/Vol] 9 mg/dL [facility] Creatinine [Mass/volume] in Serum or PlasmaOrdered By: Delano Francis on 09-17-2023 Creatinine [Mass/Vol] 0.79 mg/dL 0.60-1.20 [facility] Eosinophils Auto (Bld) [#/Vo l]Ordered By: Delano Francis on 09-17-2023 Eosinophils (Bld) [#/Vol] 0.1 10*3/uL 0.0-0.45 [facility] Eosinophils/100 WBC Auto (Bl d)Ordered By: Delano Francis on 09-17-2023 Eosinophils/100 WBC (Bld) 0.9 % . [facility] Erythrocyte distribution wid th Auto (RBC) [Ratio]Ordered By: Delano Francis on 09-17-2023 Erythrocyte distribution width (RBC) [Ratio] 12.4 % 11.9-15.3 [facility] Globulin Calc (S) [Mass/Vol] Ordered By: Delano Francis on 09-17-2023 Globulin (S) [Mass/Vol] 2.5 g/dL [facility] Glucose [Mass/volume] in Ser um or PlasmaOrdered By: Delano Francis on 09-17-2023 Glucose [Mass/Vol] 75 mg/dL 70-100 [facility] Hematocrit Auto (Bld) [Volum e fraction]Ordered By: Delano Francis on 09-17-2023 Hematocrit (Bld) [Volume fraction] 34.2 % 34.0-46.4 [facility] Hemoglobin [Mass/volume] in BloodOrdered By: Delano Francis on 09-17-2023 Hemoglobin (Bld) [Mass/Vol] 11.8 g/dL 11.8-15.4 [facility] Leukocytes [#/volume] correc calvin for nucleated erythrocytes in Blood by Automated counOrdered By: Delano Francis on 09-17-2023 WBC corrected for nucl RBC Auto (Bld) [#/Vol] 5.9 10*3/uL 3.8-11.6 [facility] Lymphocytes Auto (Bld) [#/Vo l]Ordered By: Delano Francis on 09-17-2023 Lymphocytes (Bld) [#/Vol] 1.8 10*3/uL 1.00-4.8 [facility] Lymphocytes/100 WBC Auto (Bl d)Ordered By: Delano Francis on 09-17-2023 Lymphocytes/100 WBC (Bld) 30.5 % . [facility] MCH Auto (RBC) [Entitic mass ]Ordered By: Delano Francis on 09-17-2023 MCH (RBC) [Entitic mass] 31.8 pg 24.7-34.3 [facility] MCHC Auto (RBC) [Mass/Vol]Or dered By: Delano Francis on 09-17-2023 MCHC (RBC) [Mass/Vol] 34.4 g/dL 32.0-35.0 [facility] MCV Auto (RBC) [Entitic vol] Ordered By: Delano Francis on 09-17-2023 MCV (RBC) [Entitic vol] 92.5 fL 80-100 [facility] Monocytes Auto (Bld) [#/Vol] Ordered By: Delano Francis on 09-17-2023 Monocytes (Bld) [#/Vol] 0.5 10*3/uL 0.0-0.8 [facility] Monocytes/100 WBC Auto (Bld) Ordered By: Delano Francis on 09-17-2023 Monocytes/100 WBC (Bld) 9.2 % . [facility] Neutrophils Auto (Bld) [#/Vo l]Ordered By: Delano Francis on 09-17-2023 Neutrophils (Bld) [#/Vol] 3.5 10*3/uL 1.8-7.7 [facility] Neutrophils/100 WBC Auto (Bl d)Ordered By: Delano Francis on 09-17-2023 Neutrophils/100 WBC (Bld) 59.0 % . [facility] No Panel InformationOrdered By: Delano Francis on 09-17-2023 Estimated GFR (CKD-EPI) > 60.0 mL/Min [facility] Creatinine Clearance (Chem N/A [facility] Nucleated erythrocytes [Pres ence] in Blood by Automated countOrdered By: Delano Francis on 09-17-2023 Nucleated RBC Auto Ql (Bld) 0.2 /100{WBC} 0-0.5 [facility] Platelet mean volume Auto (B ld) [Entitic vol]Ordered By: Delano Francis on 09-17-2023 Platelet mean volume (Bld) [Entitic vol] 8.1 fL 6.3-10.7 [facility] Platelets Auto (Bld) [#/Vol] Ordered By: Delano Francis on 09-17-2023 Platelets (Bld) [#/Vol] 250 10*3/uL 150-450 [facility] Potassium [Moles/volume] in Serum or PlasmaOrdered By: Delano Francis on 09-17-2023 Potassium [Moles/Vol] 4.0 mmol/L 3.5-5.1 [facility] Protein [Mass/volume] in Ser um or PlasmaOrdered By: Delano Francis on 09-17-2023 Protein [Mass/Vol] 6.8 g/dL 6.4-8.9 [facility] RBC Auto (Bld) [#/Vol]Ordere d By: Delano Francis on 09-17-2023 RBC (Bld) [#/Vol] 3.70 10*6/uL 3.60-5.00 [facility] Serum or plasma albumin/glob ulin mass ratioOrdered By: Delano Francis on 09-17-2023 Albumin/Globulin [Mass ratio] 1.7 {ratio} [facility] Serum or plasma anion gap de terminationOrdered By: Delano Francis on 09-17-2023 Anion gap [Moles/Vol] 10.8 mmol/L 6.0-15.0 [facility] Serum or plasma high density lipoprotein (HDL) cholesterol measurementOrdered By: Delano Francis on 09-17-2023 Cholesterol in HDL [Mass/Vol] 43 mg/dL 23- [facility] Comment on above: HDL CHOL ATP-III CLA SSIFICATION Cardiovascular RiskHDL > or equal to 60 mg/dL LOWHDL < 40 mg/dL HIGH Serum or plasma total choles terol/high density lipoprotein (HDL) cholesterol mass ratOrdered By: Delano Francis on 09-17-2023 Cholesterol.total/Alivia sterol in HDL [Mass ratio] 5.0 {ratio} <5.0 [facility] Sodium [Moles/volume] in Ser um or PlasmaOrdered By: Delano Francis on 09-17-2023 Sodium [Moles/Vol] 135 mmol/L 136-145 [facility] Thyrotropin [Units/volume] i n Serum or PlasmaOrdered By: Delano Francis on 09-17-2023 TSH Qn 1.04 m[IU]/L 0.45-5.33 [facility] Triglyceride [Mass/volume] i n Serum or PlasmaOrdered By: Dealno Francis on 09-17-2023 Triglyceride [Mass/Vol] 48 mg/dL 0-149 [facility] Comment on above: TRIG ATP III CLASSIF ICATIONTRIG less than 150 mg/dL NormalTRIG 150-199 mg/dL Borderline highTRIG 200-500 mg/dL High TRIG greater than 500 mg/dL Very highStandard traceable to the Center for Disease Conrtrol and Prevention (CDC) test method. Urea nitrogen [Mass/volume] in Serum or PlasmaOrdered By: Delano Francis on 09-17-2023 Urea nitrogen [Mass/Vol] 7 mg/dL 7- [facility] WBC Auto (Bld) [#/Vol]Ordere d By: Delano Francis on 09-17-2023 WBC (Bld) [#/Vol] 5.9 10*3/uL 3.8-11.6 [facility] Mononucleosis Test, Qualon 1 Heterophile Ab LA Ql (S) Negative [facility] Other Quick Strepon 09-26-2022 S. pyogenes Org specific cx Ql (Throat) Negative [employer] Other Quick Strep [facility] Other SARS-CoV-2 (COVID-19) RNA NA A+probe Ql (Resp)on 09-26-2022 SARS-CoV-2 (COVID-19) RNA ROB+probe Ql (Unsp spec) Negative [facility] Other PAP ACOG PANEL 2: 30 to 65on 09-01-2022 . . Normal [facility] Comment on above: Result Comment: Perf ormed at: WB Performed By: #### [id number] #### [facility] [address] [place] [address] Dr. Zonia Zhang Age Gdln ACOG Testing 30-65 Normal [facility] Comment on above: Performed By: #### [id number] #### [facility] [address] [address] [address] Zonia Zhang DIAGNOSIS: Comment Normal [facility] Comment on above: Result Comment: NEGA TIVE FOR INTRAEPITHELIAL LESION OR MALIGNANCY. Performed at: WB Performed By: #### [id number] #### [facility] [address] [address] [address] Zonia Zhang HPV Aptima Negative Normal Negative [facility] Comment on above: Result Comment: This nucleic acid amplification test detects fourteen high-risk HPV types (16,18,31,33,35,39,45,51,52,56,58,59,66,68) without differentiation. Performed at: =G Performed By: #### [id number] #### [facility] [address] [address] [address] Zonia Zhang Methodology: Comment Normal [facility] Comment on above: Result Comment: This liquid based ThinPrep(R) pap test was screened with the use of an image guided system. Performed at: WB Performed By: #### [id number] #### [facility] [address] [place] [address] Dr. Zonia Zhang Note: Comment Normal [facility] Comment on above: Result Comment: The Pap smear is a screening test designed to aid in the detection of premalignant and malignant conditions of the uterine cervix. It is not a diagnostic procedure and should not be used as the sole means of detecting cervical cancer. Both false-positive and false-negative reports do occur. . Performed at: WB Performed By: #### [id number] #### [facility] [address] [place] [address] Dr. Zonia Zhang Performed by: Comment Normal [facility] Comment on above: Result Comment: Negin Tomas, [employer] (ASCP) Performed at: WB Performed By: #### [id number] #### [facility] [address] [place] [address] Dr. Zonia Zhang Specimen adequacy: Comment Normal [facility] Comment on above: Result Comment: Sati sfactory for evaluation. Endocervical and/or squamous metaplastic cells (endocervical component) are present. Performed at: WB Performed By: #### [id number] #### [facility] [address] [place] [address] Dr. Zonia Zhang Basophils Auto (Bld) [#/Vol] Ordered By: Delano Francis on 08-07-2022 Basophils (Bld) [#/Vol] 0.0 10*3/uL 0.0-0.2 [facility] Basophils/100 WBC Auto (Bld) Ordered By: Delano Francis on 08-07-2022 Basophils/100 WBC (Bld) 0.5 % . [facility] Blood hemoglobin measurement (mass/volume)Ordered By: Delano Francis on 08-07-2022 Hemoglobin (Bld) [Mass/Vol] 12.7 g/dL 11.8-15.4 [facility] Blood leukocytes automated c ount (number/volume)Ordered By: Delano Francis on 08-07-2022 WBC (Bld) [#/Vol] 5.0 10*3/uL 4.5-11.0 [facility] Body fluid albumin measureme nt (mass/volume)Ordered By: Delano Francis on 08-07-2022 Albumin (Body fld) [Mass/Vol] 4.1 g/dL 3.2-5.5 [facility] Cholesterol [Mass/volume] in Serum or PlasmaOrdered By: Delano Francis on 08-07-2022 Cholesterol [Mass/Vol] 253 mg/dL 140-200 [facility] Comment on above: Chol less than 200 m g/dl low risk Chol 201-239 mg/dl borderline risk Chol 240 mg/dl and greater high risk Chol less than 200 m g/dl low riskChol 201-239 mg/dl borderline riskChol 240 mg/dl and greater high risk Cholesterol in LDL Calc [Mas s/Vol]Ordered By: Delano Francis on 08-07-2022 Cholesterol in LDL [Mass/Vol] 181 mg/dL 0-100 [facility] Comment on above: LDL ATP III [...] 08-07-2022 Cholesterol in VLDL [Mass/Vol] 12 mg/dL [facility] Creatinine and Glomerular fi ltration rate.predicted panel (S/P/Bld)Ordered By: Delano Francis on 08-07-2022 Creatinine [Mass/Vol] 0.76 mg/dL 0.44-1.03 [facility] Eosinophils Auto (Bld) [#/Vo l]Ordered By: Delano Francis on 08-07-2022 Eosinophils (Bld) [#/Vol] 0.1 10*3/uL 0.0-0.45 [facility] Eosinophils/100 WBC Auto (Bl d)Ordered By: Delano Francis on 08-07-2022 Eosinophils/100 WBC (Bld) 1.6 % . [facility] Erythrocyte distribution wid th Auto (RBC) [Ratio]Ordered By: Delano Francis on 08-07-2022 Erythrocyte distribution width (RBC) [Ratio] 12.6 % 11.9-15.3 [facility] Estimated glomerular filtrat ion rate (GFR) non- AmericanOrdered By: Delano Francis on 08-07-2022 GFR/1.73 sq M.predicted among non-blacks MDRD (S/P/Bld) [Vol rate/Area] > 60 mL/Min [facility] Globulin Calc (S) [Mass/Vol] Ordered By: Delano Francis on 08-07-2022 Globulin (S) [Mass/Vol] 2.3 g/dL [facility] Hematocrit Auto (Bld) [Volum e fraction]Ordered By: Delano Francis on 08-07-2022 Hematocrit (Bld) [Volume fraction] 37.5 % 34.0-46.4 [facility] - Chemistry and C hemistry - challengeOrdered By: Delano Francis on 08-07-2022 Glucose [Mass/Vol] 88 mg/dL 70-100 [facility] - Hematology and Cell countsOrdered By: Delano Francis on 08-07-2022 Nucleated RBC/100 WBC (Bld) [Ratio] 0.1 % 0-0.5 [facility] Lymphocytes Auto (Bld) [#/Vo l]Ordered By: Delano Francis on 08-07-2022 Lymphocytes (Bld) [#/Vol] 1.4 10*3/uL 1.00-4.8 [facility] Lymphocytes/100 WBC Auto (Bl d)Ordered By: Delano Francis on 08-07-2022 Lymphocytes/100 WBC (Bld) 28.1 % . [facility] MCH Auto (RBC) [Entitic mass ]Ordered By: Delano Francis on 08-07-2022 MCH (RBC) [Entitic mass] 31.8 pg 24.7-34.3 [facility] MCHC Auto (RBC) [Mass/Vol]Or dered By: Delano Francis on 08-07-2022 MCHC (RBC) [Mass/Vol] 33.8 g/dL 32.0-35.0 [facility] MCV Auto (RBC) [Entitic vol] Ordered By: Delano Francis on 08-07-2022 MCV (RBC) [Entitic vol] 94.3 fL 80-100 [facility] Monocyte %Ordered By: Delano Francis on 08-07-2022 Monocyte % 60 mg/dL 35-149 [facility] Comment on above: TRIG ATP III [...] 08-07-2022 Monocytes (Bld) [#/Vol] 0.5 10*3/uL 0.0-0.8 [facility] Monocytes/100 WBC Auto (Bld) Ordered By: Delano Francis on 08-07-2022 Monocytes/100 WBC (Bld) 10.1 % . [facility] Neutrophils Auto (Bld) [#/Vo l]Ordered By: Delano Francis on 08-07-2022 Neutrophils (Bld) [#/Vol] 3.0 10*3/uL 1.8-7.7 [facility] Neutrophils/100 WBC Auto (Bl d)Ordered By: Delano Francis on 08-07-2022 Neutrophils/100 WBC (Bld) 59.7 % . [facility] No Panel InformationOrdered By: Delano Francis on 08-07-2022 Estimated GFR () > 60 mL/Min [facility] Comment on above: GFR estimated refere nce range: According to KDOQI guidelines, <60 ml/min/1.73m2 is sufficient to diagnose a patient with chronic kidney disease. Nicotine Metabolite Negative Cutoff=25 [facility] Comment on above: Performed at: BN - [facility] [address] [id number] Director: Quinton Wolf MD, Phone: [phone] Pharmacy Creatinine Clearance (Chem N/A [facility] Platelet mean volume Auto (B ld) [Entitic vol]Ordered By: Delano Francis on 08-07-2022 Platelet mean volume (Bld) [Entitic vol] 7.8 fL 6.3-10.7 [facility] Platelets Auto (Bld) [#/Vol] Ordered By: Delano Francis on 08-07-2022 Platelets (Bld) [#/Vol] 275 10*3/uL 150-450 [facility] Protein [Mass/volume] in Ser um or PlasmaOrdered By: Delano Francis on 08-07-2022 Protein [Mass/Vol] 6.4 g/dL 6.1-7.9 [facility] RBC Auto (Bld) [#/Vol]Ordere d By: Delano Francis on 08-07-2022 RBC (Bld) [#/Vol] 3.97 10*6/uL 3.60-5.00 [facility] Serum or plasma alanine troy otransferase measurement without P-5'-P (enzymatic activiOrdered By: Delano Francis on 08-07-2022 ALT No additional P-5'-P [Catalytic activity/Vol] 13 U/L 10-60 [facility] Serum or plasma albumin/glob ulin mass ratioOrdered By: Delano Francis on 08-07-2022 Albumin/Globulin [Mass ratio] 1.8 {ratio} [facility] Serum or plasma alkaline nova sphatase measurement (enzymatic activity/volume)Ordered By: Delano Francis on 08-07-2022 ALP [Catalytic activity/Vol] 52 U/L 32-92 [facility] Serum or plasma anion gap de terminationOrdered By: Delano Francis on 08-07-2022 Anion gap [Moles/Vol] 11.7 mmol/L 6.0-15.0 [facility] Serum or plasma aspartate am inotransferase measurement (enzymatic activity/volume)Ordered By: Delano Francis on 08-07-2022 AST [Catalytic activity/Vol] 15 U/L 10-42 [facility] Serum or plasma calcium kevin urement (mass/volume)Ordered By: Delano Francis on 08-07-2022 Calcium [Mass/Vol] 9.8 mg/dL 8.2-10.2 [facility] Serum or plasma chloride ra surement (moles/volume)Ordered By: Delano Francis on 08-07-2022 Chloride [Moles/Vol] 101 mmol/L 95-[address] [facility] Serum or plasma high density lipoprotein (HDL) cholesterol measurementOrdered By: Delano Francis on 08-07-2022 Cholesterol in HDL [Mass/Vol] 60 mg/dL 35-85 [facility] Comment on above: HDL CHOL ATP-III [...] on 08-07-2022 Sodium [Moles/Vol] 136 mmol/L 136-146 [facility] Serum or plasma total biliru bin measurement (mass/volume)Ordered By: Delano Francis on 08-07-2022 Bilirubin [Mass/Vol] 1.0 mg/dL 0.3-1.[address] [facility] Serum or plasma total carbon dioxide measurement (moles/volume)Ordered By: Delano Francis on 08-07-2022 CO2 [Moles/Vol] 27.7 mmol/L 22.0-30.0 [facility] Serum or plasma total choles terol/high density lipoprotein (HDL) cholesterol mass ratOrdered By: Delano Francis on 08-07-2022 Cholesterol.total/Alivia sterol in HDL [Mass ratio] 4.2 {ratio} <5.0 [facility] Serum or plasma urea nitroge n measurement (mass/volume)Ordered By: Delano Francis on 08-07-2022 Urea nitrogen [Mass/Vol] 9 mg/dL 9- [facility] TSH DL <= 0.005 mIU/L QnOrde red By: Delano Francis on 08-07-2022 TSH Qn 1.43 m[IU]/L 0.45-5.33 [facility] T3, TOTAL (TRIIODOTHYRONINE) on 06-07-2022 T3, TOTAL 88 ng/dL Normal 71-180 [facility] Comment on above: Performed By: #### T 3TOTAL #### [facility] [address] [place] [address] Dr. Zonia Zhang FREE T4on 06-06-2022 Free T4 [Mass/Vol] 0.94 ng/dL Normal 0.76-1.46 [facility] Comment on above: Performed By: #### F T4 #### [facility] [address] [address] [address] Zonia Zhang TSHon 06-06-2022 TSH 1.364 uIU/mL Normal 0.358-3.74 0 [facility] Comment on above: Performed By: #### T SH #### [facility] [address] [place] [address] Dr. Zonia Zhang COVID Quick Testingon 2021 Result Positive [facility] Other Quick Fluon 12-27-2021 FLUAV Ab CF (S) [Titer] Negative [facility] [employer] [employer] Other FLUBV Ab CF (S) [Titer] Negative [facility] [employer] Other Vital Signs Date Time Vital Sign Value Performing Clinician Facility 08-07-2025 15:33-0400 Body mass index (BMI) [Ratio] 36.34 kg/m2 Ángel Sita DO Work Phone: [facility] 08-07-2025 15:33-0400 Body weight 105.23 kg Ángel Sita DO Work Phone: [facility] 08-07-2025 15:33-0400 Diastolic blood pressure 80 mm[Hg] Ángel Sita DO Work Phone: [facility] 08-07-2025 15:33-0400 Systolic blood pressure 130 mm[Hg] Ángel Sita DO Work Phone: [facility] 08-03-2025 09:28-0400 Body mass index (BMI) [Ratio] 36.46 kg/m2 Ángel Sita DO Work Phone: [facility] 08-03-2025 09:28-0400 Body weight 105.6 kg Ángel Sita DO Work Phone: [facility] 08-03-2025 09:28-0400 Diastolic blood pressure 76 mm[Hg] Ángel Sita DO Work Phone: [facility] 08-03-2025 09:28-0400 Systolic blood pressure 120 mm[Hg] Ángel Sita DO Work Phone: [facility] 07-24-2025 11:34-0400 Body mass index (BMI) [Ratio] 36.57 kg/m2 Ángel Sita DO Work Phone: [facility] 07-24-2025 11:34-0400 Body weight 105.92 kg Ángel Sita DO Work Phone: [facility] 07-24-2025 11:34-0400 Diastolic blood pressure 74 mm[Hg] Ángel Sita DO Work Phone: [facility] 07-24-2025 11:34-0400 Systolic blood pressure 118 mm[Hg] Ángel Sita DO Work Phone: [facility] 07-17-2025 14:59-0400 Body mass index (BMI) [Ratio] 36.77 kg/m2 Ángel Sita DO Work Phone: [facility] 07-17-2025 14:59-0400 Body weight 106.5 kg Ángel Sita DO Work Phone: [facility] 07-17-2025 14:59-0400 Diastolic blood pressure 70 mm[Hg] Ángel Sita DO Work Phone: [facility] 07-17-2025 14:59-0400 Systolic blood pressure 118 mm[Hg] Ángel Sita DO Work Phone: [facility] 07-10-2025 13:59-0400 Body mass index (BMI) [Ratio] 36.41 kg/m2 Ángel Sita DO Work Phone: [facility] 07-10-2025 13:59-0400 Body weight 105.46 kg Ángel Sita DO Work Phone: [facility] 07-10-2025 13:59-0400 Diastolic blood pressure 74 mm[Hg] Ángel Sita DO Work Phone: [facility] 07-10-2025 13:59-0400 Systolic blood pressure 126 mm[Hg] Ángel Sita DO Work Phone: [facility] 06-26-2025 13:08-0400 Body mass index (BMI) [Ratio] 36.2 kg/m2 Ángel Sita DO Work Phone: [facility] 06-26-2025 13:08-0400 Body weight 104.83 kg Ángel Sita DO Work Phone: [facility] 06-26-2025 13:08-0400 Diastolic blood pressure 74 mm[Hg] Ángel Sita DO Work Phone: [facility] 06-26-2025 13:08-0400 Systolic blood pressure 116 mm[Hg] Ángel Sita DO Work Phone: [facility] 06-12-2025 14:21-0400 Body mass index (BMI) [Ratio] 35.73 kg/m2 Ángel Sita DO Work Phone: [facility] 06-12-2025 14:21-0400 Body weight 103.47 kg Ángel Sita DO Work Phone: [facility] 06-12-2025 14:21-0400 Diastolic blood pressure 70 mm[Hg] Ángel Sita DO Work Phone: [facility] 06-12-2025 14:21-0400 Systolic blood pressure 120 mm[Hg] Ángel Sita DO Work Phone: [facility] 05-30-2025 09:10-0400 Body mass index (BMI) [Ratio] 35.52 kg/m2 Ángel Sita DO Work Phone: [facility] 05-30-2025 09:10-0400 Body weight 102.88 kg Ángel Sita DO Work Phone: [facility] 05-30-2025 09:10-0400 Diastolic blood pressure 78 mm[Hg] Ángel Sita DO Work Phone: [facility] 05-30-2025 09:10-0400 Systolic blood pressure 120 mm[Hg] Ángel Sita DO Work Phone: [facility] 05-01-2025 08:36-0400 Body mass index (BMI) [Ratio] 34.43 kg/m2 Deisy MUNOZ Work Phone: [facility] 05-01-2025 08:36-0400 Body weight 99.7 kg Deisy MUNOZ Work Phone: [facility] 05-01-2025 08:36-0400 Diastolic blood pressure 74 mm[Hg] Deisy MUNOZ Work Phone: [facility] 05-01-2025 08:36-0400 Systolic blood pressure 118 mm[Hg] Deisy Villar PA Work Phone: [facility] 03-30-2025 10:28-0400 Body mass index (BMI) [Ratio] 32.89 kg/m2 Ángel Sita DO Work Phone: [facility] 03-30-2025 10:28-0400 Body weight 95.25 kg Ángel Sita DO Work Phone: [facility] 03-30-2025 10:28-0400 Diastolic blood pressure 84 mm[Hg] Ángel Sita DO Work Phone: [facility] 03-30-2025 10:28-0400 Systolic blood pressure 120 mm[Hg] Ángel Sita DO Work Phone: [facility] 03-02-2025 09:58-0400 Body mass index (BMI) [Ratio] 31.76 kg/m2 Deisy Adithya PA Work Phone: [facility] 03-02-2025 09:58-0400 Body weight 91.99 kg Deisy Adithya PA Work Phone: [facility] 03-02-2025 09:58-0400 Diastolic blood pressure 72 mm[Hg] Deisy Adithya PA Work Phone: [facility] 03-02-2025 09:58-0400 Systolic blood pressure 120 mm[Hg] Deisy Adithya PA Work Phone: [facility] 02-02-2025 09:25-0500 Body mass index (BMI) [Ratio] 30.54 kg/m2 Ángel Sita DO Work Phone: [facility] 02-02-2025 09:25-0500 Body weight 88.45 kg Ángel Sita DO Work Phone: [facility] 02-02-2025 09:25-0500 Diastolic blood pressure 70 mm[Hg] Ángel Sita DO Work Phone: [facility] 02-02-2025 09:25-0500 Systolic blood pressure 120 mm[Hg] Ángel Sita DO Work Phone: [facility] 10-18-2024 11:19-0500 Body height 170.18 cm Robles Ball DO Work Phone: [facility] 10-18-2024 11:19-0500 Body mass index (BMI) [Ratio] 29.7 kg/m2 Robles Ball DO Work Phone: [facility] 10-18-2024 11:19-0500 Body weight 86.23 kg Robles Ball DO Work Phone: [facility] 10-18-2024 11:19-0500 Diastolic blood pressure 77 mm[Hg] Robles Ball DO Work Phone: [facility] 10-18-2024 11:19-0500 Heart rate 88 /min Robles Ball DO Work Phone: [facility] 10-18-2024 11:19-0500 Respiratory rate 12 /min Robles Ball DO Work Phone: [facility] 10-18-2024 11:19-0500 Systolic blood pressure 111 mm[Hg] Robles Ball DO Work Phone: [facility] 09-13-2024 14:28-0400 Body mass index (BMI) [Ratio] 28.79 kg/m2 Ángel Sita DO Work Phone: [facility] 09-13-2024 14:28-0400 Body weight 83.37 kg Ángel Sita DO Work Phone: [facility] 09-13-2024 14:28-0400 Diastolic blood pressure 70 mm[Hg] Ángel Sita DO Work Phone: [facility] 09-13-2024 14:28-0400 Systolic blood pressure 120 mm[Hg] Ángel Sita DO Work Phone: [facility] 05-03-2024 14:40-0400 Body height 170.18 cm [facility] 05-03-2024 14:40-0400 Body mass index (BMI) [Ratio] 28.3 kg/m2 [facility] 05-03-2024 14:40-0400 Body weight 82.1 kg [facility] 05-03-2024 14:40-0400 Diastolic blood pressure 82 mm[Hg] [facility] 05-03-2024 14:40-0400 Heart rate 78 /min [facility] 05-03-2024 14:40-0400 SaO2% (BldA) [Mass fraction] 98 % [facility] 05-03-2024 14:40-0400 Systolic blood pressure 122 mm[Hg] [facility] 01-06-2024 14:20-0500 Body height 170.2 cm Deisy MUNOZ Work Phone: [facility] 01-06-2024 14:20-0500 Body mass index (BMI) [Ratio] 28.05 kg/m2 Deisy Villar PA Work Phone: [facility] 01-06-2024 14:20-0500 Body weight 81.25 kg Deisy Villar PA Work Phone: [facility] 01-06-2024 14:20-0500 Diastolic blood pressure 70 mm[Hg] Deisy Villar PA Work Phone: [facility] 01-06-2024 14:20-0500 Systolic blood pressure 120 mm[Hg] Deisy MUNOZ Work Phone: [facility] 10-02-2023 10:00-0400 Body height 170.18 cm Robles Ball Other [facility] Other 10-02-2023 10:00-0400 Body mass index (BMI) [Ratio] 29.38 kg/m2 Robles Ball Other [facility] Other 10-02-2023 10:00-0400 Body weight 85.1 kg Robles Ball Other [facility] Other 10-02-2023 10:00-0400 Diastolic blood pressure 83 mm[Hg] Robles Ball Other [facility] Other 10-02-2023 10:00-0400 Respiratory rate 12 /min Robles Ball Other [facility] Other 10-02-2023 10:00-0400 Systolic blood pressure 131 mm[Hg] Robles Ball Other [facility] Other 01-22-2023 10:30-0500 Body height 170.18 cm Robles Ball Other [facility] Other 01-22-2023 10:30-0500 Body mass index (BMI) [Ratio] 29.91 kg/m2 Robles Ball Other [facility] Other 01-22-2023 10:30-0500 Body weight 86.64 kg Robles Ball Other [facility] Other 01-22-2023 10:30-0500 Diastolic blood pressure 72 mm[Hg] Robles Ball Other [facility] Other 01-22-2023 10:30-0500 Respiratory rate 16 /min Robles Ball Other [facility] Other 01-22-2023 10:30-0500 Systolic blood pressure 122 mm[Hg] Robles Ball Other [facility] Other 09-26-2022 16:10-0400 Body height 170.18 cm Kiya Schaffer Other [facility] Other 09-26-2022 16:10-0400 Body mass index (BMI) [Ratio] 29.29 kg/m2 Kiya Schaffer Other [facility] Other 09-26-2022 16:10-0400 Body temperature 98.8 [degF] Kiya Schaffer Other [facility] Other 09-26-2022 16:10-0400 Body weight 84.82 kg Kiya Schaffer Other [facility] Other 09-26-2022 16:10-0400 Diastolic blood pressure 73 mm[Hg] Kiya Schaffer Other [facility] Other 09-26-2022 16:10-0400 Respiratory rate 18 /min Kiya Schaffer Other [facility] Other 09-26-2022 16:10-0400 SaO2% (BldA) [Mass fraction] 97 % Kiya Shcaffer Other [facility] Other 09-26-2022 16:10-0400 Systolic blood pressure 125 mm[Hg] Kiya Schaffer Other [facility] Other 12-27-2021 10:15-0500 Body height 170.18 cm Elsi Leyla Other [facility] Other 12-27-2021 10:15-0500 Body mass index (BMI) [Ratio] 28.19 kg/m2 Elsi Leyla Other [facility] Other 12-27-2021 10:15-0500 Body temperature 100.3 [degF] Elsi Leyla Other [facility] Other 12-27-2021 10:15-0500 Body weight 81.65 kg Elsi Leyla Other [facility] Other 12-27-2021 10:15-0500 Respiratory rate 18 /min Elsi Leyla Other [facility] Other 12-27-2021 10:15-0500 SaO2% (BldA) [Mass fraction] 98 % Elsi Leyla Other [facility] Other Encounters Encounter Date Encounter Type Care Provider Facility Start: 08-08-2025 End: 08-08-2025 Clinisync Result Encounter Ángel Sita DO Work Phone: [facility] Unsolicited Start: 08-08-2025 End: 08-08-2025 Clinisync Result Encounter Ángel Sita DO Work Phone: [facility] Unsolicited Start: 08-07-2025 End: 08-07-2025 flow sheet Ángel Sita DO Work Phone: [facility] Comment on above: Third trimester preg lai ([facility]); 39 weeks gestation of ([facility]) Start: 08-07-2025 End: 08-07-2025 ambulatory ÁNGEL SITA [...] Comment on above: Third trimester preg lai ([facility]); 39 weeks gestation of ([facility]) Start: 08-03-2025 End: 08-03-2025 ambulatory ÁNGEL SITA [...] Comment on above: Third trimester preg lai ([facility]); 37 weeks gestation of ([facility]) Start: 07-22-2025 End: 07-22-2025 Clinisync Result Encounter Ángel Sita DO Work Phone: [facility] Unsolicited Start: 07-22-2025 End: 07-22-2025 Clinisync Result Encounter Ángel Sita DO Work Phone: [facility] Unsolicited Start: 07-17-2025 End: 07-17-2025 flow sheet Ángel Sita DO Work Phone: [facility]ARR[facility] Comment on above: 36 weeks gestation o f ([facility]); Third trimester ([facility]); History of miscarriage; Multigravida of advanced maternal age in third trimester ([facility]); Excessive growth affecting management of in third trimester, single or unspecified fetus ([facility]) Start: 07-17-2025 End: 07-17-2025 ambulatory ÁNGEL SITA [...] Comment on above: Third trimester preg lai ([facility]); 35 weeks gestation of ([facility]) Start: 07-10-2025 End: 07-10-2025 ambulatory ÁNGEL SITA [...] Comment on above: Third trimester preg lai ([facility]); 33 weeks gestation of ([facility]) Start: 06-26-2025 End: 06-26-2025 ambulatory ÁNGEL SITA [...] ([facility]HS-HCC) (Primary Dx); 31 weeks gestation of ([facility]); Third trimester ([facility]); History of miscarriage; Multigravida of advanced maternal age in third trimester ([facility]) Start: 06-12-2025 End: 06-12-2025 ambulatory ÁNGEL SITA Not Available Start: 06-12-2025 End: 06-12-2025 Bamboo flowsheet Ángel Sita DO Work Phone: [facility] Start: 06-12-2025 End: 06-12-2025 Bamboo flowsheet Ángel Sita DO Work Phone: [facility] Start: 06-10-2025 End: 06-10-2025 Clinisync Result Encounter Ángel Sita DO Work Phone: [facility] Unsolicited Start: 06-10-2025 End: 06-10-2025 Clinisync Result Encounter Ángel Sita DO Work Phone: [facility] External Department Unsolicited Start: 06-03-2025 End: 06-03-2025 Clinisync Result Encounter Ángel Sita DO Work Phone: [facility] Unsolicited Start: 06-03-2025 End: 06-03-2025 Clinisync Result Encounter Ángel Sita DO Work Phone: [facility] External Department Unsolicited Start: 05-30-2025 End: 05-30-2025 Bamboo flowsheet Ángel Sita DO Work Phone: [facility] Start: 05-30-2025 End: 05-30-2025 Bamboo flowsheet Ángel Sita DO Work Phone: [facility] Start: 05-30-2025 End: 05-30-2025 flow sheet Ángel Sita DO Work Phone: [facility] Comment on above: Third trimester preg lai ([facility]); 29 weeks gestation of ([facility]); History of miscarriage; Multigravida of advanced maternal age in third trimester ([facility]) Start: 05-30-2025 End: 05-30-2025 ambulatory [...] Patient encounter procedure Deisy MUNOZ Work Phone: [facility] Healthcare Start: 03-02-2025 End: 03-02-2025 Periodic [...] 10-18-2024 ambulatory Robles Charles DO Work Phone: [facility] Work Phone: Start: 10-18-2024 End: 10-18-2024 Encounter for general adult medical examination without abnormal findings Robles Charles DO Work Phone: [facility] Start: 10-18-2024 End: 10-18-2024 Patient encounter procedure Robles Charles DO Work Phone: [facility] Work Phone: Start: 10-16-2024 Patient encounter status Jermaine min Nela DO Work Phone: [facility] Start: 10-14-2024 Non-patient / Non-visit Benjam in Ball DO Work Phone: [facility] Work Phone: Start: 09-22-2024 End: 09-22-2024 Departed Referred DO Robles Charles Work Phone: [facility] Start: 09-22-2024 End: 09-22-2024 ambulatory DO Robles Charles Work Phone: [facility] Work Phone: Start: 09-13-2024 End: 09-13-2024 [...] Start: 08-29-2024 End: 08-29-2024 Patient encounter procedure [facility] Work Phone: Start: 05-03-2024 End: 05-03-2024 ambulatory [facility] Work Phone: Start: 05-03-2024 End: 05-03-2024 Patient encounter procedure [facility] Work Phone: Start: 2024 End: 2024 ambulatory DO Robles Ball Work Phone: [facility] Work Phone: Start: 2024 End: 2024 Patient encounter procedure DO Robles Ball Work Phone: [facility] Work Phone: Start: 01-07-2024 End: 01-07-2024 Patient encounter procedure DO Robles Ball Work Phone: [facility] [place] Work Phone: Start: 01-07-2024 End: 01-07-2024 ambulatory DO Robles Ball Work Phone: [facility] Work Phone: Start: 01-06-2024 End: 01-06-2024 Office outpatient visit 15 minutes Deisy MUNOZ Work Phone: [facility] Comment on above: Encounter for weight management; Hormone disorder; 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 Start: 10-02-2023 End: 10-02-2023 ambulatory Robles Ball Other [facility] Other Start: 10-02-2023 Encounter for genera l adult medical examination without abnormal findings Robles Charles [facility] Start: 10-02-2023 Periodic preventive med est patient 18-39 yrs Robles Charles [facility] Start: 09-17-2023 End: 09-17-2023 ambulatory MD Liz Conteh Work Phone: [facility] Work Phone: Start: 09-17-2023 End: 09-17-2023 Departed Referred MD Liz Conteh Work Phone: [facility]Employee Benefit Screening Start: 01-22-2023 End: 01-22-2023 ambulatory Robles Charles Other [facility] Other Start: 01-22-2023 Office outpatient vi sit 15 minutes Robles Charles [facility] Start: 01-12-2023 End: 01-12-2023 ambulatory Robles Charles Other [facility] Other Start: 01-12-2023 Telephone encounter Robles Charles [facility] Start: 12-24-2022 End: 12-24-2022 ambulatory Robles Charles Other [facility] Other Start: 12-24-2022 Office outpatient vi sit 15 minutes Robles Charles [facility] Start: 09-30-2022 End: 09-30-2022 ambulatory Kiya Schaffer Other [facility] Other Start: 09-30-2022 Telephone encounter Kiya Schaffer [facility] [address] Start: 09-26-2022 End: 09-26-2022 Departed Referred MD Liz Conteh Work Phone: [facility] [place] Start: 09-26-2022 End: 09-26-2022 ambulatory MD Liz Conteh Work Phone: [facility] Work Phone: Start: 09-26-2022 Office outpatient vi sit 15 minutes Kiya Schaffer [facility] Start: 09-25-2022 ([facility] C Vac) [facility] Co vid [facility]ine [facility] Start: 09-25-2022 End: 09-25-2022 ambulatory MD Liz Conteh Work Phone: [facility] Work Phone: Start: 09-25-2022 End: 09-25-2022 Patient encounter procedure MD Liz Conteh Work Phone: [facility]Covid Vaccine Off Site Start: 08-25-2022 End: 08-25-[address] ÁNGEL BUCKNER Facility:[facility] Start: 08-07-2022 End: 08-07-2022 Departed Referred MD Liz Conteh Work Phone: [facility] Benefit Screening Start: 06-06-2022 End: 06-07-[address] ROBLES CHARLES Facility:[facility] Start: 01-01-2022 End: 01-01-2022 ambulatory Elsi Mayer Other [facility] Other Start: 01-01-2022 Office outpatient vi sit 5 minutes Elsi Leyla [facility] Start: 12-27-2021 End: 12-27-2021 ambulatory Elsi Mayer Other [facility] Other Start: 12-27-2021 Office outpatient vi sit 15 minutes Elsi Leyla [facility] Start: 08-23-2021 ([facility] C Vac) [facility] Co vid Vaccine Subha [facility] Procedures Date Procedure Procedure Detail Performing Clinician Start: 08-08-2025 ALL CBC WITH AUTO DIFF Ángel Buckner DO Work Phone: Start: 08-07-2025 [facility] UA (CLEAN/CATCH) TYPE BAR AND SEGMENT ASSEMBLER/MICRO IF IND. Ángel Buckner DO Work Phone: [...] 05-11-2025 US OB GROWTH Edson E jackyly [employer] Work Phone: Start: 04-18-2025 ALL CBC WITH [...] for malignant neoplasm of cervix Pap Smear [facility] Start: 09-19-2025 End: 09-19-2025 Patient encounter procedure [facility] Start: 08-07-2025 End: 08-07-2025 Patient encounter procedure [facility] Sonia CARRASQUILLO Comment on above: Arrived Start: 08-03-2025 End: 08-03-2025 Patient encounter procedure [facility] Sonia CARRASQUILLO Comment on above: Arrived Start: 07-31-2025 Influenza vaccination [facility] Start: 07-24-2025 End: 07-24-2025 Patient encounter procedure 07/24/2025 11:20 AM EDT Routine [facility] [address] [place] [id number] Ángel Buckner, DO [address] [place] [address] [facility] Start: 07-17-2025 End: 07-17-2025 Patient encounter procedure HERBIE Lorenzo Comment on above: Arrived Start: 07-10-2025 End: 07-10-2026 CULTURE, GROUP B STREP WITH SUSCEPTIBLITY CULTURE, GROUP B STREP WITH SUSCEPTIBLITY Lab Routine Third trimester ([facility]) Expected: 07/10/2025, Expires: 07/10/2026 [facility] Work [...] in third trimester, single or unspecified fetus ([facility]) Expected: 06/12/2025, Expires: 10/13/2025 [facility] Work Phone: Comment on above: Expected: 06/12/2025, Expires: Start: 05-30-2025 End: 11-30-2025 US biophysical profile w non stress test US biophysical profile w non stress test Imaging Routine History of miscarriage Multigravida of advanced maternal age in third trimester ([facility]) Expected: 05/30/2025 (Approximate), Expires: 11/30/2025 [facility] [...] Procedure [facility] [address] [place] [address] [facility] Start: 04-03-2025 End: 04-03-2025 Patient encounter procedure 04/03/2025 9:50 AM EDT Routine [facility] [address] [place] [address] Ángel Buckner, DO [address], [place] [address] [facility] Start: 04-03-2025 End: 04-03-2025 Professional / ancillary services management 04/03/2025 8:00 AM EDT Ancillary Procedure [facility] [address] [place] [address] [facility] Start: 03-30-2025 End: 03-30-2026 CBC panel - Blood by Automated count CBC Lab Routine Second trimester Diabetes mellitus screening Expected: 03/30/2025 (Approximate), Expires: 03/30/2026 [facility] Healthcare Work Phone: Comment on [...] for anatomic survey Expected: 03/02/2025, Expires: 03/02/2026 [facility] Comment on above: Expected: 03/02/2025, Expires: Start: 03-02-2025 End: 03-02-2025 Patient encounter procedure 03/02/2025 9:30 AM EDT [facility]ine [facility] [address] [facility] [place] [address] Deisy Villar PA [address] [place] [address] Arrived [facility] Comment on above: Arrived Start: 02-02-2025 End: 02-02-2025 Patient encounter procedure [facility] Comment on above: Arrived Start: 01-05-2025 End: 01-05-2026 ABO/Rh ABO/Rh Lab Routine Missed menses , unspecified gestational age ([facility]) Expected: 01/05/2025 (Approximate), Expires: 01/05/2026 [facility] Comment on above: Expected: 01/05/2025 (Approximate), Expi res: 01/05/2026 Start: 01-05-2025 End: 01-05-2026 Blood type and Indirect antibody screen panel - Blood Type and screen Lab Routine Missed menses , unspecified gestational age ([facility]) Expected: 01/05/2025 (Approximate), Expires: 01/05/2026 [facility] Work Phone: Comment on above: Expected: 01/05/2025 (Approximate), Expi res: 01/05/2026 Start: 01-05-2025 End: 01-05-2026 Drugs of abuse panel - Urine by Screen method Rapid drug screen, urine Lab Routine , unspecified gestational age ([facility]) Encounter for supervision of normal first in first trimester ([facility]) Expected: 01/05/2025 (Approximate), Expires: 01/05/2026 [facility] Comment on above: Expected: 01/05/2025 (Approximate), Expi res: 01/05/2026 Start: 01-05-2025 End: 01-05-2025 ambulatory 01/05/2025 1:30 PM EST Initial [facility] [address] [place] [id number] [facility] Start: 01-05-2025 End: 01-05-2025 Professional / ancillary services management 01/05/2025 1:00 PM EST Ancillary Procedure [facility] [address] [place] [address] [facility] Start: 09-13-2024 End: 09-13-2024 Patient encounter procedure [facility] Comment on above: Arrived Start: 07-31-2024 Influenza vaccination Influenza Vaccine (#1) [facility] Start: 02-03-2024 End: 02-03-2024 Patient encounter procedure 02/03/2024 1:50 PM EST Office Visit [facility] [address] [place] [id number] Deisy Villar PA [address] [place] [address] [facility] Start: 01-07-2024 Dehydroepiandrosterone sulfate level [facility] Start: 01-07-2024 Sex hormone binding globulin measurement [facility] Start: 01-07-2024 T3 reverse measurement [facility] Start: 01-07-2024 Thyroxine measurement [facility] Start: 01-07-2024 [facility] Start: 01-06-2024 End: 01-06-2025 Anti-thyroglobulin antibody Anti-thyroglobulin antibody Lab Routine Hormone disorder Expected: 01/06/2024 (Approximate), Expires: 01/06/2025 [facility] Healthcare Comment on above: Expected: 01/06/2024 (Approximate), Expi res: 01/06/2025 Start: 01-06-2024 End: 01-06-2025 C-peptide C-peptide Lab Routine Hormone disorder Expected: 01/06/2024 (Approximate), Expires: 01/06/2025 [facility] Healthcare Comment on above: Expected: 01/06/2024 (Approximate), Expi res: 01/06/2025 Start: 01-06-2024 End: 01-06-2025 Cortisol free Cortisol, free Lab Routine Hormone disorder Expected: 01/06/2024 (Approximate), Expires: 01/06/2025 [facility] Healthcare Comment on above: Expected: 01/06/2024 [...] Hormone disorder Expected: 01/06/2024 (Approximate), Expires: 01/06/2025 [facility] Healthcare Comment on above: Expected: 01/06/2024 (Approximate), Expi res: 01/06/2025 Start: 01-06-2024 End: 01-06-2025 Thyroglobulin Thyroglobulin Lab Routine Hormone disorder Expected: 01/06/2024 (Approximate), Expires: 01/06/2025 [facility] Comment on above: Expected: 01/06/2024 (Approximate), Expi res: 01/06/2025 Start: 01-06-2024 End: 01-06-2025 Thyrotropin [Units/volume] in Serum or Plasma [facility] Comment on above: Ordered: 01/06/2024 Expected: 01/06/2024 (Approximate), Expires: 01/06/2025 Start: 09-17-2023 [facility] Start: 08-07-2022 [facility] Work Phone: Bacteria identified in Urine by Culture Urine culture Microbiology Routine Missed menses Ordered: 01/05/2025 [facility] Comment on above: Ordered: 01/05/2025 Calcitriol [Mass/vol ume] in Serum or Plasma [facility] CBC W Auto Different ial panel - Blood CBC and differential Lab Routine Missed menses , unspecified gestational age ([facility]) Ordered: 01/05/2025 [facility] Comment on above: Ordered: 01/05/2025 CHLAMYDIA TRACHOMATI S (GENITO/STI) CHLAMYDIA TRACHOMATIS (GENITO/STI) Lab Routine Exposure to STD Ordered: 03/02/2025 [facility] Comment on above: Ordered: 03/02/2025 Cytology Cervical or vaginal smear or scraping study Pap Smear Pathology and Cytology Routine Well woman exam with routine gynecological exam Ordered: 09/13/2024 [facility] Work Phone: Comment on above: Ordered: 09/13/2024 Cytology Cervical or vaginal smear or scraping study Pap Smear Pathology and Cytology Routine Well woman exam with routine gynecological exam Ordered: 03/02/2025 [facility] Comment on above: Ordered: 03/02/2025 DHEA-sulfate DHEA-sulfate Lab Routine Hormone disorder Ordered: 01/06/2024 [facility] Comment on above: Ordered: 01/06/2024 Estradiol Estradiol Lab Ro utine Hormone disorder Ordered: 01/06/2024 [facility] Work Phone: Comment on above: Ordered: 01/06/2024 Estradiol (E2) [Mass /volume] in Serum or Plasma [facility] Estrone Estrone Lab Rout ine Hormone disorder Ordered: 01/06/2024 [facility] Comment on above: Ordered: 01/06/2024 Estrone (E1) [Mass/v olume] in Serum or Plasma [facility] Ferritin [Mass/volum e] in Serum or Plasma Ferritin Lab Routine Hormone disorder Ordered: 01/06/2024 [facility] Comment on above: Ordered: 01/06/2024 Hemoglobin A1c measurement Hemog lobin A1c Lab Routine Hormone disorder Ordered: 01/06/2024 [facility] Comment on above: Ordered: 01/06/2024 Hemoglobin A1c/Hemoglobin.total in Blood Hemoglobin A1c Lab Routine Missed menses , unspecified gestational age (HHS-HCC) Ordered: 01/05/2025 [facility] Comment on above: Ordered: 01/05/2025 Hepatitis B virus newsome rface Ag [Presence] in Serum or Plasma by Immunoassay Hepatitis B surface antigen Lab Routine Missed menses , unspecified gestational age (HHS-HCC) Ordered: 01/05/2025 [facility] Comment on above: Ordered: 01/05/2025 Hepatitis C virus Ab [Presence] in Serum or Plasma by Immunoassay Hepatitis C antibody Lab Routine Missed menses , unspecified gestational age (HHS-HCC) Ordered: 01/05/2025 [facility] Comment on above: Ordered: 01/05/2025 HIV-1/HIV-2 antigen/ antibody combination immunoassay HIV-1 and HIV-2 antibodies Lab Routine Missed menses , unspecified gestational age (HHS-HCC) Ordered: 01/05/2025 [facility] Comment on above: Ordered: 01/05/2025 [...] exam with routine gynecological exam Ordered: 03/02/2025 [facility] Comment on above: Ordered: 03/02/2025 Insulin [Units/volum e] in Serum or Plasma [facility] Neisseria gonorrhoea e DNA [Presence] in Unspecified specimen by ROB with probe detection Neisseria gonorrhea DNA probe, direct Lab Routine Exposure to STD Ordered: 03/02/2025 [facility] Comment on above: Ordered: 03/02/2025 Progesterone Progesterone Lab Routine Hormone disorder Ordered: 01/06/2024 [facility] Comment on above: Ordered: 01/06/2024 Progesterone [Mass/v olume] in Serum or Plasma [facility] Reagin Ab [Presence] in Serum by RPR RPR Lab Routine Missed menses , unspecified gestational age ([facility]) Ordered: 01/05/2025 [facility] Comment on above: Ordered: 01/05/2025 Rubella antibody, IgG Rubella an tibody, IgG Lab Routine Missed menses , unspecified gestational age ([facility]) Ordered: 01/05/2025 [facility] Comment on above: Ordered: 01/05/2025 Serotonin [Mass/volu me] in Plasma [facility] Sex hormone binding globulin Sex hormone binding globulin Lab Routine Hormone disorder Ordered: 01/06/2024 [facility] Comment on above: Ordered: 01/06/2024 SURESWAB(R) ADVANCED VAGINITIS PLUS, TMA SURESWAB(R) ADVANCED VAGINITIS PLUS, TMA Pathology and Cytology Routine Vaginal discharge Ordered: 03/02/2025 [facility] Work Phone: Comment on above: Ordered: 03/02/2025 T3, reverse T3, reverse Lab Routine Hormone disorder Ordered: 01/06/2024 [facility] Comment on above: Ordered: 01/06/2024 Testosterone Free [Mass/volume] in Serum or Plasma [facility] TESTOSTERONE, FREE TESTOSTERONE, FREE Lab Routine Hormone disorder Ordered: 01/06/2024 [facility] Comment on above: Ordered: 01/06/2024 Testosterone, free, total Testos terone, free, total Lab Routine Hormone disorder Ordered: 01/06/2024 [facility] Comment on above: Ordered: 01/06/2024 Throat culture Throat Culture [facility] Thyroglobulin Ab [Units/volume] in Serum or Plasma [facility] Thyroid peroxidase antibody Thyr oid peroxidase antibody Lab Routine Hormone disorder Ordered: 01/06/2024 [facility] Comment on above: Ordered: 01/06/2024 Thyroperoxidase Ab [Units/volume] in Serum or Plasma [facility] Thyroxine (T4) free [Mass/volume] in Serum or Plasma T4, free Lab Routine Hormone disorder Ordered: 01/06/2024 [facility] Comment on above: Ordered: 01/06/2024 Triiodothyronine (T3 ) Free [Mass/volume] in Serum or Plasma T3, free Lab Routine Hormone disorder Ordered: 01/06/2024 [facility] Comment on above: Ordered: 01/06/2024 Vitamin D 1,25 dihydroxy Vitamin D 1,25 dihydroxy Lab Routine Hormone disorder Ordered: 01/06/2024 [facility] Comment on above: Ordered: 01/06/2024 [facility] Work Phone: Immunizations Immunization Date Immunization Notes Care Provider kaylynn 09-15-2023 influenza, injectabl e, quadrivalent, preservative free [facility] 09-15-2023 influenza virus vaccine, unspecified formulation Ángel Buckner DO Work Phone: [facility] 09-25-2022 COVID-19 Moderna (BIvalent) Kiya Schaffer Other [facility] 08-23-2021 COVID-19 Pfizer Subha Fitt Other [facility] 07-31-2021 COVID-19 Pfizer Subha Fitt Other [facility] 05-19-2021 diphtheria, tetanus toxoids and pertussis vaccine [facility] Payers Date Payer Category Payer Self-pay [id number] 2022 Private Health Insurance [employer] [id number] 2022 Unknown [employer] [id number] 2022-Present [address] [place] [address] [id number] 1990 Unknown [id number] 2.16.840.1.012626.3.579.2 .593 1990 Unknown [id number] 2.16.840.1.432699.3.579.2 .593 1990 Unknown [id number] 2.16.840.1.186271.3.579.2 .1259 1990 Unknown [id number] 2.16.840.1.281631.3.579.2 .1259 1990 Unknown [id number] 2.16.840.1.842753.3.579.2 .1259 1990 Unknown [id number] 2.16.840.1.969809.3.579.2 .1259 1990 Unknown [id number] 2.16.840.1.842511.3.579.2 .1259 1990 Unknown [id number] 2.16.840.1.155000.3.579.2 .1259 1990 Unknown [id number] 2.16.840.1.993049.3.579.2 .1259 1990 Unknown [id number] 2.16.840.1.719236.3.579.2 .1259 1990 Unknown [id number] 2.16.840.1.522450.3.579.2 .1258 1990 Unknown [id number] 2.16.840.1.134741.3.579.2 .9 1990 Unknown [id number] 2.16.840.1.023424.3.579.2 .1258 1990 Unknown [id number] 2.16.840.1.483433.3.579.2 .1258 1990 Unknown [id number] 2.16.840.1.047424.3.579.2 .1258 1990 Unknown [id number] 2.16.840.1.552034.3.579.2 .1258 1990 Unknown [id number] 2.16.840.1.009990.3.579.2 .1258 1990 Unknown [id number] 2.16.840.1.577984.3.579.2 .1258 1990 Unknown [id number] 2.16.840.1.059816.3.579.2 .9 1959 Unknown [id number] 2.16.840.1.030556.19 Unknown [id number] 2.16.840.1.201556.3.579.2 .531 Unknown [id number] 2.16840.1.817968.3.579.2 .531 Worker's Compensation [facility] C t [place] [id number] Social History Date Type Detail Facility Start: 10-13-2023 End: 09-13-2024 Sex Assigned At [facility] Start: 1990 Sex Assigned At Female F [facility] Start: 08-13-2023 End: 05-03-2024 Tobacco smoking status NHIS Never smoked tobacco [facility] Start: 01-06-2024 End: 01-05-2025 Alcohol [...] [facility] Start: 10-18-2024 Sex Female (finding) [facility] Start: 11-16-2024 [facility] Clinical Notes 08-23-2021 to 08-07-2025 Mary Lou Kearney, ADULT LITERACY TEACHER - 08/07/2025 3:00 PM Joselito Kearney, ADULT LITERACY TEACHER - 08/03/2025 9:10 AM EDTEdson Dewitt, ELECTRICAL ENGINEERING TEACHER - 07/24/2025 11:20 AM Joselito Kearney, JUAN [...] nursing note reviewed. Exam conducted with a paperback machine operator present. Vitals: Estimated body mass index is 36.34 kg/m as calculated from the following: Height as of 24: 5' 7 . Weight as of this encounter: 232 lb. BP: 130/80 Patient's last menstrual period was 11/02/2024. ASSESSMENT & PLAN ICD-10-CM 1. Third trimester ([facility]) Z34.93 POCT urinalysis dipstick manually resulted 2. 39 weeks gestation of ([facility]) Z3A.39 Patient presents today for a routine obstetrics appointment. Patient is currently 39w6d with a Estimated Date of Delivery: 08/09/25. Patient to have IOL on 08/08/25. Documented by Mary Lou Kearney LPN on behalf of: Ángel Buckner DO documented in this encounter [facility] 08-03-2025 History of Presen t [...] nursing note reviewed. Exam conducted with a paperback machine operator present. Vitals: Estimated body mass index is 36.46 kg/m as calculated from the following: Height as of 24: 5' 7 . Weight as of this encounter: 232 lb 12.8 oz. BP: 120/76 Patient's last menstrual period was 11/02/2024. ASSESSMENT & PLAN ICD-10-CM 1. Third trimester ([facility]) Z34.93 POCT urinalysis dipstick manually resulted 2. 39 weeks gestation of ([facility]) Z3A.39 POCT urinalysis dipstick manually resulted Patient presents today for a routine obstetrics appointment. Patient is currently 39w1d with a Estimated Date of Delivery: 08/09/25. Patient to have IOL on 08/08/25 0600. RTC for appointment. Documented by Mary Lou Kearney LPN on behalf of: Ángel Buckner DO documented in this encounter [facility] 07-24-2025 History of Presen t [...] nursing note reviewed. Exam conducted with a paperback machine operator present. Vitals: Estimated body mass index is 36.57 kg/m as calculated from the following: Height as of 01/06/24: 5' 7 . Weight as of this encounter: 233 lb 8 oz. BP: 118/74 Patient's last menstrual period was 11/02/2024. ASSESSMENT & PLAN ICD-10-CM 1. Third trimester ([facility]) Z34.93 POCT urinalysis dipstick manually resulted 2. 37 weeks gestation of ([facility]) Z3A.37 Return OB: Patient presents today for [...] Ángel Buckner DO documented in this encounter [facility] 07-17-2025 History of Presen t [...] nursing note reviewed. Exam conducted with a paperback machine operator present. Vitals: Estimated body mass index is 36.77 kg/m as calculated from the following: Height as of 01/06/24: 5' 7 . Weight as of this encounter: 234 lb 12.8 oz. BP: 118/70 Patient's last menstrual period was 11/02/2024. ASSESSMENT & PLAN ICD-10-CM 1. 36 weeks gestation of ([facility]) Z3A.36 POCT urinalysis dipstick manually resulted 2. Third trimester ([facility]) Z34.93 POCT urinalysis dipstick manually resulted 3. History of miscarriage Z87.59 4. Multigravida of advanced maternal age in third trimester ([facility]) O09.523 5. Excessive growth affecting management of in third trimester, single or unspecified fetus ([facility]) O36.63X0 Patient presents today for a routine obstetrics appointment. Patient is currently 36w5d with a Estimated Date of Delivery: 08/09/25. Pelvic exam performed and patient is currently 2cm and 70% effaced. Patient to return to clinic in 1 week. Documented by Mary Lou Kearney LPN on behalf of: Ángel Bucnker DO documented in this encounter [facility] 07-10-2025 History of Presen t [...] ASSESSMENT & PLAN ICD-10-CM 1. Third trimester ([facility]) Z34.93 CULTURE, GROUP B STREP WITH SUSCEPTIBLITY CULTURE, GROUP B STREP WITH SUSCEPTIBLITY 2. 35 weeks gestation of ([facility]) Z3A.35 POCT urinalysis dipstick manually resulted Return [...] Ángel Buckner DO documented in this encounter [facility] 06-26-2025 History of Presen t [...] nursing note reviewed. Exam conducted with a paperback machine operator present. Vitals: Estimated body mass index is 36.2 kg/m as calculated from the following: Height as of 24: 5' 7 . Weight as of this encounter: 231 lb 1.9 oz. BP: 116/74 Patient's last menstrual period was 11/02/2024. ASSESSMENT & PLAN (Z34.93) Third trimester ([facility]) Plan: POCT urinalysis dipstick manually resulted (Z3A.33) 33 weeks gestation of ([facility]) Plan: POCT urinalysis dipstick manually resulted Patient presents today for a routine obstetrics appointment. Patient is currently 33w5d with a Estimated Date of Delivery: 08/09/25. Patient to return to clinic in 2 weeks for GBS. Documented by Mary Lou Kearney LPN on behalf of: Ángel Buckner DO documented in this encounter [facility] 06-12-2025 History of Presen t [...] in third trimester, single or unspecified fetus ([facility]) O36.63X0 OB follow up transabdominal approach 2. 31 weeks gestation of ([facility]) Z3A.31 POCT urinalysis dipstick manually resulted 3. Third trimester ([facility]) Z34.93 POCT urinalysis dipstick manually resulted 4. History of miscarriage Z87.59 5. Multigravida of advanced maternal age in third trimester ([facility]) O09.523 Return OB: Patient presents today for [...] Ángel Buckner DO documented in this encounter [facility] 05-30-2025 History of Presen t [...] nursing note reviewed. Exam conducted with a paperback machine operator present. Vitals: Estimated body mass index is 35.52 kg/m as calculated from the following: Height as of 01/06/24: 5' 7 . Weight as of this encounter: 226 lb 12.8 oz. BP: 120/78 Patient's last menstrual period was 11/02/2024. ASSESSMENT & PLAN ICD-10-CM 1. Third trimester ([facility]) Z34.93 POCT urinalysis dipstick manually resulted 2. 29 weeks gestation of ([facility]) Z3A.29 POCT urinalysis dipstick manually resulted 3. History of miscarriage Z87.59 4. Multigravida of advanced maternal age in third trimester ([facility]) O09.523 Return OB: Patient presents today for [...] Ángel Buckner DO documented in this encounter [facility] 05-01-2025 History of Presen t [...] nursing note reviewed. Exam conducted with a paperback machine operator present. Vitals: Estimated body mass index [...] Edson Dewitt NP documented in this encounter [facility] 03-30-2025 History of Presen t [...] nursing note reviewed. Exam conducted with a paperback machine operator present. Vitals: Estimated body mass index [...] clinic in 4 weeks. Documented by Mary oLu Kearney LPN on behalf of: Ángel Buckner DO documented in this encounter [facility] 03-02-2025 History of Presen t [...] nursing note reviewed. Exam conducted with a paperback machine operator present. Vitals: Estimated body mass index [...] of: ALEXANDER Gramajo documented in this encounter [facility] 02-02-2025 History of Presen t [...] Ángel Buckner DO documented in this encounter [facility] 01-05-2025 History of Presen t [...] - Urine culture , unspecified gestational age ([facility]) - Type and screen; Future - ABO/Rh; Future - CBC and differential - Hemoglobin A1c - RPR - Rubella antibody, IgG - Hepatitis B surface antigen - Hepatitis C antibody - HIV-1 and HIV-2 antibodies - Rapid drug screen, urine; Future Encounter for supervision of normal first in first trimester ([facility]) - Rapid drug screen, urine; Future Nurse [...] or undercooked meat, and stay away from [facility]. Patient has also been advised to [...] Keyla Arias LPN documented in this encounter [facility] 09-13-2024 History of Presen t [...] nursing note reviewed. Exam conducted with a paperback machine operator present. Vitals: Estimated body mass index [...] Ángel Buckner DO documented in this encounter [facility] 01-06-2024 History of Presen t [...] Diagnosis Date Fatigue GARTH (generalized anxiety disorder) ([facility]) Hyperlipidemia ([facility]) Paronychia, finger Family History Problem [...] of: ALEXANDER Gramajo documented in this encounter [facility] 10-02-2023 Evaluation note Encounter Date [...] prior to bedtime. Weight loss. Pepcid PRN [facility] Other 2023 Evaluation note* Encounter Date Diagnosis Assessment Notes Treatment Notes Treatment Clinical Notes Dec, Nasal turbinate hypertrophy (ICD-10 - J34.3) FLonase, saline NS, Sudafed and avoid use of Afin. Refer to ENT. Dec, Nonallergic vasomotor rhinitis (ICD-10 - J30.0) Prednisone tapered over 8 days. Claritin as needed. [facility] Other 02-13-2023 Evaluation note* Encounter Date Diagnosis Assessment Notes Treatment Notes Treatment Clinical Notes Dec, Acute non-recurrent maxillary sinusitis (ICD-10 - J01.00) [facility] Other 01-25-2023 Evaluation note* Encounter Date Diagnosis Assessment Notes Treatment Notes Treatment Clinical Notes Nov, Acute non-recurrent maxillary sinusitis (ICD-10 - J01.00) Instructed to use Robitussin or Mucinex for cough, saline or Flonase NS for congestion, Tylenol for pain and fever. [facility] Other 10-28-2022 Evaluation note* Encounter Date Diagnosis [...] (suspected) exposure to covid-19 (ICD-10 - Z20.822) [facility] Other 10-27-2022 Evaluation note* Encounter Date Diagnosis Assessment Notes Treatment Notes Treatment Clinical Notes Aug, Encounter for immunization (ICD-10 - Z23) Patient presents today for COVID-19 vaccination booster. Patient pre-vaccination form answers reviewed. Patient denies current illness or allergic reaction to any component of a COVD-19 vaccine. Patient provided with copy of current EUA. [facility] Other 02-02-2022 Evaluation note* Encounter Date Diagnosis [...] Patient care instructions given in writting by [facility] document. Additional time spent conducting pre-visit phone call, screening for symptoms, instructions on social distancing, application and removal of PPE, and cleaning of examination room, equipment and supplies was preformed. Patient education given for testing methodology and results. Patient care instructions given in writting by [facility] document. [facility] Other 01-28-2022 Evaluation note* Encounter Date Diagnosis [...] Patient care instructions given in writting by [facility] document. [facility] Other 09-24-2021 Evaluation note* Encounter Date Diagnosis Assessment Notes Treatment Notes Treatment Clinical Notes Jul, Encounter for immunization (ICD-10 - Z23) Patient presents for COVID-19 vaccination #2. Pre-screening form answers evaluated with patient. Patient denies current illness or allergic reaction to component of COVID-19 vaccine. Patient provided with current copy of EUA. [facility] Other Evaluation noteNo assessment information available [facility] Work Phone: Evaluation noteNo [employer] Other Evaluation note* Diagnosis Encounter for weight management Hormone disorder Unspecified endocrine disorder 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 [facility] Diagnosis Well woman exam with routine gynecological exam Routine gynecological examination documented in this encounter [facility]* Diagnosis Onset Date Resolution Status Admit Date Hypercholesteremia acute Novemb er 2023 11:13am Wellness examination acute Nove mber 2023 11:13am [facility] Work Phone: Evaluation note* Diagnosis [...] know Surgical history Hospitalization History see above [facility] Other History general Narrative - Reported* Type Description Date Medical History Child X2 Natural Surgical History No Surgical history information Hospitalization History see above [facility] Other History general Narrative - Reported* Type Description Date Medical History Child X2 Natural Medical History Body mass index (BMI) of 25.0 to 29.9 Medical History Fatigue Medical History Hyperlipidemia, group A Medical History GARTH (generalized anxiety disorde r) Surgical History No know Surgical history Hospitalization History No know Hospitalization history [facility] Other Chief Complaint and Reason for Visit [...] [facility] Referred Provider Robles Hernandez Referred Address ,[place], [place],[address] Referred Provider Specialty Otolaryngolo gy Referral Priority Routine Referral Appointment Date 2023-02-04 General Notes Rosangela Cruz 09:25:33 AM >received today, notes locked, insurance card attached, referral faxed Rosangela Cruz 01/29/2023 12:42:25 PM >Shannan at Dr. Rodriges office requested referral be faxed again to [phone]. done! Rosangela Cruz 02/05/2023 02:23:23 PM >notes [...] Primary Care Provider Active Delano Francis DO [facility] Attending Provider Active Team Status: [...] January 07, 2024 End: January 07, 2024 Packing And Shipping Clerk Relationship Specialty Start Date End Date Robles Charles MD [address] [place] [id number] PCP - General Internal Medicine 07/30/23 Team Status: Inactive Member Role Status Dates Robles Charles DO Primary Care Provide r, Attending Provider Active Start: 2024 End: 2024 Team Status: Inactive Member Role Status Dates Robles Charles DO Primary Care Provider Active Start: May 03, 2024 End: May 03, 2024 Caro Chacon APRN ELECTRICAL ENGINEERING TEACHER-C Attending Provider Act alex Start: May 03, 2024 End: May 03, 2024 Team Status: Inactive Member Role Status Dates Robles Charles DO Primary Care Provide r, Attending Provider Active Start: August 29, 2024 End: August 29, 2024 Packing And Shipping Clerk Relationship Specialty Start Date End Date Robles Charles MD [address] [place] [phone] PCP - General Internal Medicine 07/30/23 Deisy Villar PA [address] [place], [place] [address]justus [place], [place] [address] PCP - Medical [place] [employer] 11/30/23 11/29/99 Packing And Shipping Clerk Relationship Specialty Start Date End Date Robles Charles MD [address] [place] [phone] PCP - General Internal Medicine 07/30/23 Deisy Villar PA [address] [place] [address] PCP - Medical [place] [employer] 11/30/23 11/29/99 Packing And Shipping Clerk Relationship Specialty Start Date End Date Robles Charles MD [address] [place] [id number] PCP - General Internal Medicine 07/30/23 Deisy Villar PA [address] [place] [address] [place] [address] PCP - Medical [place] [employer] 11/30/23 11/29/99 Team Status: Inactive Member Role Status Dates Robles Charles DO Primary Care Provider Active Start: September 22, 2024 End: September 22, 2024 Delano Francis - [facility] , DO [facility] Attending Provider Active Start: September 22, 2024 End: September 22, 2024 Team Status: Active Member Role Status Dates Robles Charles DO Primary Care Provide r, Attending Provider Active Start: October 14, 2024 Team Status: Inactive Member Role Status Dates Robles Charles DO Primary Care Provide r, Attending Provider Active Start: October 18, 2024 End: October 18, 2024 Packing And Shipping Clerk Relationship Specialty Start Date End Date Robles Charles MD [address] [place] [phone] PCP - General Internal Medicine 07/30/23 Deisy Villar PA [address] [place] [address] [place] [address] PCP - Medical [employer] [employer] 11/30/23 11/29/99 Packing And Shipping Clerk Relationship Specialty Start Date End Date Robles Charles MD [address] [place] [phone] PCP - General Internal Medicine 07/30/23 Deisy Villar PA [address] [place], [place] [address] [address] PCP - Medical [employer] [employer] 11/30/23 11/29/99 Packing And Shipping Clerk Relationship Specialty Start Date End Date Robles Charles MD [address] [place] [address] PCP - General Internal Medicine 07/30/23 Deisy Villar PA [address] [place] [address] [place] [address] PCP - [facility] [place] [facility] 11/30/23 11/29/99 [employer] Shipping Clerk Relationship Specialty Start Date End Date Robles Charles MD [address] [place] [id number] PCP - General Internal Medicine 07/30/23 Deisy Villar PA [address] [place] [address] [place] [address] PCP - [facility] [place] [facility] 11/30/23 11/29/99 [employer] Shipping Clerk Relationship Specialty Start Date End Date Robles Charles MD PCP - General Internal Medicine 07/30/23 Deisy Villar PA [address] [place], [place] [address] [address] PCP - [facility] [place] [facility] 11/30/23 11/29/99 [employer] Shipping Clerk Relationship Specialty Start Date End Date Robles Charles DO PCP - General Internal Medicine 07/30/23 Deisy Villar PA [address] [place] [address] [place] [address] PCP - [facility] [facility] 11/30/23 11/29/99 [employer] Shipping Clerk Relationship Specialty Start Date End Date Robles Charles DO [address] [facility] [place] [address] PCP - General Internal Medicine 07/30/23 Deisy Villar PA [address] [place] [address] [place] [address] PCP - [facility] [place] [facility] 11/30/23 11/29/99 [employer] Shipping Clerk Relationship Specialty Start Date End Date Robles Charles DO [address] [facility] [place] [address] PCP - General Internal Medicine 07/30/23 Deisy Villar PA [address] [place] [address] [place] [address] PCP - Medical [facility] [facility] 11/30/23 11/29/99 [employer] Clerk Relationship Specialty Start Date End Date Robles Charles DO [address] [facility] [place] [id number] PCP - General Internal Medicine 07/30/23 Deisy Villar, PA [address] [place] [address] Dr [place], [place] [id number] PCP - [facility] [facility] 11/30/23 11/29/99 [employer] Shipping Clerk Relationship Specialty Start Date End Date Robles Charles DO [address] [facility] [place] [address] PCP - General Internal Medicine 07/30/23 Deisy Villar PA [address] [place] [address] Tosin Ram[place], [place] [id number] PCP - [facility] [facility] 11/30/23 11/29/99 [employer] Shipping Clerk Relationship Specialty Start Date End Date Robles Charles DO [address] [place] [id number] PCP - General Internal Medicine 07/30/23 Deisy Villar PA [address] [place] [address] [place] [address] PCP - [facility] [place] [facility] 11/30/23 11/29/99 P[employer] Shipping Clerk Relationship Specialty Start Date End Date Robles Charles DO [address] [place] [address] PCP - General Internal Medicine 07/30/23 Deisy Villar PA [address] [place] [address] Dr Ramachandran, [facility] PCP - Medical [place] [facility] 11/30/23 11/29/99 [employer] Shipping Clerk Relationship Specialty Start Date End Date Robles Charles DO [address] [place] [address] PCP - General Internal Medicine 07/30/23 Deisy Villar, PA [address] [place] [address] Tosin Ram[place], [place] [id number] PCP - [facility] [facility] 11/30/23 11/29/99 P[employer] Shipping Clerk Relationship Specialty Start Date End Date Robles Charles DO [address] [place] [address] PCP - General Internal Medicine 07/30/23 Deisy Villar PA [address] [place] [address] Dr [place], [place] [id number] PCP - [facility] [place] [facility] 11/30/23 11/29/99 P[employer] Shipping Clerk Relationship Specialty Start Date End Date Robles Charles DO [address] [place] [id number] PCP - General Internal Medicine 07/30/23 Deisy Villar PA [address] [place] [address] [place] [address] PCP - [facility] [place] [facility] 11/30/23 11/29/99 P[employer] Shipping Clerk Relationship Specialty [place] [address] [place] [id number] PCP - General Internal Medicine 07/30/23 Deisy Villar PA [address] [place] [address] [place] [address] PCP - [facility] [facility] 11/30/23 11/29/99 [employer] Shipping Clerk Relationship Specialty Start Date End Date Robles Charles DO [address] [place] [address] PCP - General Internal Medicine 07/30/23 Deisy Villar PA [address] [place] [address] [place] [address] PCP - Medical [place] [facility] 11/30/23 11/29/99 [employer] Shipping Clerk Relationship Specialty Start Date End Date Robles Charles DO [address] [place] [facility] [place] [id number] PCP - General Internal Medicine 07/30/23 Deisy Villar PA [address] [facility] [place] [address] PCP - [facility] [place] [facility] 11/30/23 11/29/99 [employer] Shipping Clerk Relationship Specialty Start Date End Date Robles Charles DO [address] [place] [facility] [place] [id number] PCP - General Internal Medicine 07/30/23 Deisy Villar PA [address] [facility] [place] [address] PCP - [facility] [place] [facility] 11/30/23 11/29/99 Goals (unrecognized section and content) Goals may be documented in a n alternate section INFORMATION SOURCE (unrecogn ized section and content) DATE CREATED AUTHOR 09/02/2022 [facility] DATE CREATED AUTHOR AUTHOR'S ORGANIZ ATION 09/23/2024 [facility] DATE CREATED AUTHOR AUTHOR'S ORGANIZ ATION 08/09/2025 [facility] EPIC FOR RECORDS [...] BE BASED ON THE PRIMARY CLINICAL RECORDS. [employer] provides no warranty or guarantee of the accuracy or completeness of information in this document.
== END 2025-09-05 19:34 | disposition home or self-care (01) ==
LOC: LAB 19:33
PROVIDERS: PCP Internal Medicine; Visit Provider Nurse Practitioner Family
DX: Z39.2 Encounter for routine postpartum follow-up (principal)
CPT/HCPCS: 87070; 87075; 87186